=== PATIENT | female | born 1955 | race Caucasian/White ===

== ENCOUNTER 2020-02-09 15:15 | Inpatient (IN) | payer OTHER, SELFPAY ==
--- NOTE | ~2020-02-09 | CT_ITS ---
EXAMINATION: CT brain wo con DATE: 02/09/2020 20:55 INDICATION: Syncope TECHNIQUE: Computed tomography (CT) of the head was performed without intravenous contrast. The mA wa s adjusted according to patient size. Iterative reconstruction technique was employed. Exam dose: 60 5.33 mGy-cm total exam DLP. COMPARISON: None FINDINGS: No intracranial mass lesion or hemorrhage or cerebrovascular accident is evident. No midlin e shift or mass effect. There is moderately prominent central and cortical cerebral atrophy. There ar e bilateral basal ganglia calcifications. Bilateral carotid siphon internal carotid artery calcifications. There is nonspecific diminished attenuation of the cerebral white matter, likely due to chronic small vessel ischemic changes. No orbital mass lesion Right frontal sinus is not developed. Included paranasal sinuses are otherwise unremarkable. Mastoid air cells are normally developed and aerated. No fracture or bone destruction of the cranial vault. IMPRESSION: Cerebral atherosclerosis and chronic small vessel ischemic changes of the cerebral white matter Moderate atrophy Reviewed, dictated and finalized at [facility]. Reviewed, dictated and finalized at location [facility].
--- NOTE | ~2020-02-09 | US_ITS ---
EXAMINATION: US renal BI DATE: 02/10/2020 11:43 INDICATION: Acute kidney injury. TECHNIQUE: Multiple ultrasound grayscale images of the kidneys were obtained. COMPARISON: Ultrasound 12/21/2018, CT abdomen 12/29/2018 FINDINGS: The right kidney measures 9.7 x 5.4 x 5.6 cm. The left kidney measures 10.4 x 5.6 x 5.4 cm. The kidne ys demonstrate normal parenchymal echogenicity. There is no hydronephrosis. The bladder is normal. IMPRESSION: 1. Normal kidneys. No hydronephrosis. Reviewed, dictated and finalized at location [facility].
--- NOTE | ~2020-02-09 | US_ITS ---
EXAMINATION: US carotid duplex BI EXAM DATE: 02/10/2020 17:22 INDICATION: Dizziness and syncope. TECHNIQUE: Grayscale, color and pulsed Doppler images of the cervical carotid arteries were obtained . The degree of vessel stenosis is placed in one of the following categories: normal, <50% stenosis, 50-69% stenosis, >=70% stenosis but less than near-occlusion, near-occlusion, or occlusion. Note that percent stenosis relative to normal distal artery lumen diameter is indirectly measured from velocit y measurements as described by William, et al. Radiology 2003; 229:340-346. There is no prior study fo r comparison. FINDINGS: RIGHT SIDE: Right common carotid artery peak systolic velocity (PSV in cm/s): 123 Right bulb/internal carotid artery peak systolic velocity (PSV in cm/s): 82 Right internal carotid artery end diastolic velocity (EDV in cm/s): 139 Right ICA/CCA peak systolic ratio: 1.5 Right external carotid artery peak systolic velocity (PSV in cm/s): 125 Right vertebral artery antegrade flow: yes There is moderate to large amount of common carotid artery plaque, moderate amount of plaque in the c arotid bulb with maximum velocity corresponding to estimated stenosis 50-69%. LEFT SIDE: Left common carotid artery peak systolic velocity (PSV in cm/s): 136 Left bulb/internal carotid artery peak systolic velocity (PSV in cm/s): 178 Left internal carotid artery end diastolic velocity (EDV in cm/s): 28 Left ICA/CCA peak systolic ratio: 1.3 Left external carotid artery peak systolic velocity (PSV in cm/s): 155 Left vertebral artery antegrade flow: yes There is moderate amount of common carotid bulb plaque, moderate amount of carotid bulb plaque with e levated velocity corresponding to estimated stenosis 50-69%. IMPRESSION: 1. 50-69% stenosis right common carotid artery. 2. 50-69% stenosis left internal carotid artery. Reviewed, dictated and finalized at location [facility].
--- NOTE | ~2020-02-09 | XR_ITS ---
XR chest 1V portable DATE: 02/09/2020 15:54 INDICATION: Syncopal episode, fall TECHNIQUE: AP chest, portable technique, 02/09/2020 at 1545 hours COMPARISON: None FINDINGS: Diffuse osteopenia. No pulmonary infiltrate or consolidation, pleural effusion or pulmonary vascular congestion or pneumo thorax. Normal heart size. Aortic arch calcification. No hilar or mediastinal enlargement. IMPRESSION: No active cardiopulmonary disease Reviewed, dictated and finalized at location A.
--- NOTE | ~2020-02-09 | XR_ITS ---
XR hip RT 2V w AP pelvis DATE: 02/09/2020 15:54 INDICATION: Fall. Right hip pain. TECHNIQUE: AP pelvis. AP and crosstable lateral views of right hip COMPARISON: 06/27/2019 pelvis FINDINGS: Diffuse osteopenia. Status post right total hip replacement. Bilateral old pubic bone fractures. No recent pelvic fracture is evident. The pubic symphysis and sacroiliac joints are normally aligned. No right hip fracture or dislocation is evident. Fracture deformity of uncertain age L2. Degenerative change of the lumbar spine. IMPRESSION: Old bilateral pubic bone fractures L2 fracture of undetermined age Status post right total hip arthroplasty No recent pelvic or right hip fracture or dislocation Reviewed, dictated and finalized at location A.
--- NOTE | ~2020-02-09 | CT_ITS ---
EXAMINATION: CT hip RT wo con DATE: 02/12/2020 14:10 INDICATION: Right hip injury. TECHNIQUE: Computed tomography (CT) of the right hip was performed without intravenous contrast. Auto mated exposure control and iterative reconstruction technique were employed. The dose-length product was 344.09 mGy-cm. COMPARISON: Pelvis and right hip radiographs 02/09/2020 FINDINGS: There is a total right hip arthroplasty in near-anatomic alignment. No periprosthetic lucen cy to suggest loosening or infection. There is a nondisplaced comminuted intertrochanteric and subtro chanteric fracture of proximal femur. IMPRESSION: 1. Nondisplaced comminuted periprosthetic fracture of proximal right femur. Reviewed, dictated and finalized at location A.
[2020-02-09 15:15] VITALS: BP 175/89; PULSE 85; RESP 16; TEMP 36.6; O2SAT 100
--- NOTE | 2020-02-09 15:21 | ECG_ITS ---
Measurements Intervals [place] Rate: 78 P: 34 [place]: 248 QRS: 54 QRSD: 89 T: 15 QT: 376 QTc: 430 Interpretive Statements SINUS RHYTHM WITH FIRST DEGREE AV BLOCK LOW QRS VOLTAGE IN PRECORDIAL LEADS BASELINE ARTIFACT- II, III, AVF, V5 ABNORMAL ECG Electronically Signed On 02-09-2020 17:26:25 CDT by Joshua Rg D.O.
--- NOTE | 2020-02-09 15:22 | ED.SYNCOPE ---
HPI - Syncope General Chief Complaint: Syncope Stated Complaint: syncopal episode Time Seen by Provider: 02/09/20 15:15 History of Present Illness HPI narrative: Patient arrives via EMS after falling at home. She was getting off the toilet when she fainted. She did not hit her head. She has right hip pain, and is unable to bear weight. She suspects that she is reinjured her previous hip prosthesis. She did have a loss of consciousness. She denies cough cold fever chills sweats. She still drinks alcohol. She manages her ascites with medication. She does not need peritoneal taps. MD complaint: loss of consciousness -: second(s) Prodromal symptoms: lightheaded Context: standing up and other (After bowel movement) Injuries sustained associated with event: RLE Current symptoms: other (Right hip pain) Related Data Home Medications Medication Instructions Recorded Confirmed omeprazole magnesium 20 mg 20 mg PO DAILY 09/19/19 tablet,delayed release diphenhydramine HCl [Allergy 02/09/20 (diphenhydramine)] insulin glargine [Lantus Solostar unit SUBCUT 02/09/20 U-100 Insulin] Allergies Allergy/AdvReac Type Severity Reaction Status Date / Time codeine Allergy Unknown Headache Verified 09/20/19 15:24 Review of Systems Review of Systems: Narrative: CONSTITUTIONAL: Denies fever, chills, or sweats. EYES: Denies visual changes, redness, or discharge. ENT: Denies rhinorrhea, congestion, sore throat, or otalgia. CARDIOVASCULAR: Denies chest pain, palpitations, or edema. RESPIRATORY: Denies cough or dyspnea. GASTROINTESTINAL: Denies abdominal pain, nausea, vomiting, or diarrhea. GENITOURINARY: Denies dysuria or hematuria. SKIN: Denies rash or itching. MUSCULOSKELETAL: Denies back pain NEUROLOGIC: Denies headache, numbness, or weakness. PSYCHIATRIC: Denies anxiety or depression. [facility] Social History Social History (Updated 02/09/20 @ 15:26 by Annalee Vieyra MD) Smoking status: Former smoker Second hand tobacco smoke exposure: No Smoking end date: 10/16/04 Alcohol intake: current Substance use: never Exam Narrative: Exam Narrative: GENERAL: Well-appearing, well-nourished, and in no acute distress, overweight HEAD: Normocephalic, atraumatic. EYES: PERRLA and EOMI. ENT: Nares clear, no rhinorrhea or epistaxis. Mucous membranes moist. NECK: Supple. CHEST: Clear to auscultation. No respiratory distress. HEART: Regular rate and rhythm. No murmur heard. Normal peripheral pulses. ABDOMEN: Soft, nontender, nondistended, normal active bowel sounds. EXTREMITIES:tenderness and bruising on the right hip, pain with range of motion. SKIN: Warm, dry, stool on her leg. NEURO: No focal deficits. Alert and oriented x3. PSYCH: Normal mood and affect. Course Reevaluation(s) Reevaluation #1: Checked in with the patient and explained to her about her low sodium, and possible congestive heart failure. The only diuretic she is on is the Spironolactone. I explained we did would admit her for this. Date: 02/09/20 Time: 16: Consultations Consultation #1: Call for the hospitalist at [phone]. Will admit for hyponatremia, syncope, and congestive heart failure. Petra accepts for Dr. Shaw. Date: 02/09/20 Time: 16: Vital Signs Vital signs: Vital Signs Temperature 97.9 F 02/09/20 15:15 Pulse Rate 85 02/09/20 15:15 Respiratory Rate 16 02/09/20 15:15 Blood Pressure 175/89 H 02/09/20 15:15 Pulse Oximetry 100 02/09/20 15:15 Temperature 97.9 F 02/09/20 15:15 Pulse Rate 79 02/09/20 16:00 Respiratory Rate 16 02/09/20 16:00 Blood Pressure 153/72 H 02/09/20 16:00 Pulse Oximetry 100 02/09/20 16:00 MDM - Syncope Differential Diagnosis Differential diagnosis: Likely vasovagal syncope Medical Records Attestation: I reviewed the patient's medical records. Lab Data Attestation: I reviewed the patient's lab results. Result diagrams: 02/09/20 15:32 02/09/20 15:32
[2020-02-09] MEDS: MORPHINE SULFATE 2 MG/ML INJ IV PUSH (15:40)
[2020-02-09 15:43] LABS: Hemoglobin 10.8 g/dL (12.0-15.0); Mean Corpuscular Hemoglobin 32.3 pg (26-34); Mean Corpuscular Volume 89.8 fl (80-100); Mean Platelet Volume 10.9 fl (7.4-10.4); Platelet Count Result 172 k/mm3 (150-375); Red Blood Count 3.34 M/mm3 (4.2-5.4); Red Cell Distribution Width 11.8 % (11.5-14.5); White Blood Count 14.4 K/mm3 (4.5-10.0)
[2020-02-09 15:50] LABS: INR 1.2
[2020-02-09 15:51] LABS: Partial Thromboplastin Time 30.9 SECONDS (22.3-36.8)
[2020-02-09 15:52] LABS: Ethanol < 10 mg/dL (<10)
[2020-02-09 15:59] LABS: Alanine Aminotransferase 21 U/L (4-35); Albumin Level 4.7 g/dL (3.5-5.1); Alkaline Phosphatase 246 U/L (38-126); Aspartate Amino Transferase 37 U/L (14-36); Bilirubin,Total 0.9 mg/dL (0.2-1.3); Blood Urea Nitrogen 19 mg/dL (7-17); Calcium 9.5 mg/dL (8.4-10.2); Carbon Dioxide 21 mmol/L (22-30); Chloride 83 mmol/L (98-107); Estimated CRCL calculation 32 ml/min; Estimated Glomerular Filt Rate 30; Glucose 142 mg/dL (65-105); Potassium 4.8 mmol/L (3.4-5.0); Sodium 119 mmol/L (137-145)
[2020-02-09 16:00] VITALS: BP 153/72; PULSE 79; RESP 16; O2SAT 100
[2020-02-09 16:01] LABS: Band Neutrophils Percent 7 % (0-6); Eosinophils Absolute Manual 0.43 K/mm3 (0.02-0.5); Eosinophils Percent Manual 3 % (0-4); Lymphocytes Absolute Manual 0.43 K/mm3 (1.1-4.5); Monocytes Absolute Manual 0.28 K/mm3 (0.1-0.90); Monocytes Percent Manual 2 % (3-9); Neutrophils Absolute Manual 13.24 K/mm3 (1.7-7.2); Neutrophils Percent Manual 85 % (46-73); Total Cells Counted 100
[2020-02-09 16:02] LABS: Platelet Estimate Adequate (Adequate)
[2020-02-09 16:10] LABS: NT Pro B Type Natriuretic Pept 1110 PG/ML (5-100); Troponin I < 0.012 ng/mL (0.000-0.034)
[2020-02-09 17:50] VITALS: BP 159/76; PULSE 92; RESP 16; O2SAT 99
--- NOTE | 2020-02-09 18:17 | ADMGEN ---
This patient, Lou Islas, was admitted to Medical Room 252-01. Patient/family oriented to hospital policies and general routines including ID bracelet, bed and alarms, visiting hours, pain management, procedures, bathroom and other care routines, personal items, smoking policy, room service/diet, and visiting hours. Valuables list has been completed. Information on how to activate the Rapid Response Team has been discussed. Patient/Family are encouraged to report perceived risks to care and to ask questions if they do not understand what they are told or what they should do.
[2020-02-09 18:20] VITALS: PULSE 90
--- NOTE | 2020-02-09 18:43 | PC.NURSE ---
Patient has $149 gerardo that I locked in patients locker, per her request.
[2020-02-09 19:08] VITALS: BP 138/94; PULSE 90; RESP 17; TEMP 36.9; O2SAT 99; BMI 27.9
[2020-02-09 20:00] VITALS: BP 100/46; PULSE 81; PULSE 88; RESP 18; TEMP 36.2; O2SAT 100
[2020-02-09] MEDS: ONDANSETRON INJ 4 MG/2 ML VIAL IV PUSH (20:05)
--- NOTE | 2020-02-09 20:27 | ECG_ITS ---
Measurements Intervals [place] Rate: 96 P: 253 [place]: 155 QRS: 56 QRSD: 85 T: 11 QT: 368 QTc: 465 Interpretive Statements SINUS RHYTHM BASELINE ARTIFACT- I, II, III, AVR, AVL, AVF, V1-V6 BORDERLINE ECG Electronically Signed On 02-10-2020 8:13:35 CDT by Joshua Rg D.O.
[2020-02-09 21:08] LABS: Glucose Point of Care 126 (65-105)
--- NOTE | 2020-02-09 21:26 | PM.IMHP ---
H&P: HPI History of Present Illness Chief complaint: syncope Narrative: This is a 64 year old female with known history of alcoholic liver disease who continues to drink alcohol and presented to the hospital today after suffering a possible syncopal event at home. The patient is known to live alone and she tells me that she has not been feeling well for several days. She has been experiencing nausea, vomiting, diarrhea, and dizziness for the past 4 days. She admits that she hasn't been eating much but does continue to drink alcohol. Today she was sitting on the toilet and when she got up she became dizzy and believes she might have passed out for a moment. She fell and landed on her right hip which is a prosthetic. She denies any seizure activity that she is aware of and denies any tongue biting or loss of urine. She also denies any focal neurological deficit, slurred speech or facial droop. The patient denies any recent fevers, chills, cough, chest pain, abdominal pain, dysuria, hematuria, or headache. She does report ongoing acsites. The patient was evaluated in the ER today and found to have a serum sodium level of 119 mEq/dl. Her Cr was 1.7 up from 1.3 a few months ago. She is known to chronically take Spironolactone. Review of Systems Review of Systems: All systems reviewed & are unremarkable except as noted in HPI and below PMFSH Past Medical History Medical History (Updated 02/09/20 @ 22:31 by Ghanshyam Sykes MD) Alcoholic liver disease Diabetes mellitus GERD (gastroesophageal reflux disease) HTN (hypertension) with goal to be determined Surgical History Surgical History History of right hip replacement Family History Family History Father Heart attack Mother Hypertension Mother Diabetes mellitus Mother COPD (chronic obstructive pulmonary disease) Sibling Diabetes mellitus Son No problems noted. Sibling Amputation above knee Social History Social History Smoking status: Former smoker Tobacco type: cigarettes Second hand tobacco smoke exposure: No Smoking end date: 10/16/04 Alcohol intake: current Drinks per week: 7 Substance use: never Gender identity (if verbalized by the patient): Female Spiritual care concerns: No Agree to blood products: Yes Meds Home Medications and Allergies Home Medications Medication Instructions Recorded Confirmed Type folic acid 1 mg tablet 1 mg PO DAILY #90 tablet 08/23/19 02/09/20 Rx spironolactone 25 mg tablet 25 mg PO DAILY #90 tablet 09/17/19 02/09/20 Rx metoprolol succinate 50 mg 50 mg PO DAILY #90 tablet 10/11/19 02/09/20 Rx tablet,extended release 24 hr blood sugar diagnostic #400 each 12/31/19 02/09/20 Rx losartan 50 mg tablet 50 mg PO DAILY #90 tablet 12/31/19 02/09/20 Rx pen needle, diabetic 32 gauge x #400 each 12/31/19 02/09/20 Rx 1/4 diphenhydramine HCl [Allergy 25 mg PO BID 02/09/20 02/09/20 History (diphenhydramine)] ibuprofen 400 mg PO Q12H 02/09/20 02/09/20 History insulin glargine [Lantus Solostar 10 unit SUBCUT HS 02/09/20 02/09/20 History U-100 Insulin] insulin lispro [Humalog KwikPen 5 unit SUBCUT AC 02/09/20 02/09/20 History Insulin] omeprazole magnesium [Prilosec OTC] 20 mg PO DAILY 02/09/20 02/09/20 History Allergies Allergy/AdvReac Type Severity Reaction Status Date / Time codeine Allergy Unknown Headache Verified 09/20/19 15:24 Vital Signs Vital Signs - 24 hr 02/09/20 15:15 02/09/20 16:00 02/09/20 17:50 Temperature 36.6 C Pulse Rate 85 79 92 Respiratory Rate 16 16 16 Blood Pressure 175/89 H 153/72 H 159/76 H Pulse Oximetry 100 100 99 02/09/20 18:20 02/09/20 19:08 02/09/20 20:00 Temperature 36.9 C 36.2 C L Pulse Rate 90 90 81 Respiratory Rate 17 18 Blood Pressure 138/94 H 100/46 L Pulse Oximetry 99 10
[2020-02-09 21:57] LABS: Blood Urea Nitrogen 20 mg/dL (7-17); Calcium 9.2 mg/dL (8.4-10.2); Carbon Dioxide 21 mmol/L (22-30); Chloride 83 mmol/L (98-107); Estimated CRCL calculation 32 ml/min; Estimated Glomerular Filt Rate 30; Glucose 147 mg/dL (65-105); Magnesium 1.4 mg/dL (1.6-2.3); Phosphorus 3.9 mg/dL (2.5-4.5); Sodium 119 mmol/L (137-145)
[2020-02-09] MEDS: SODIUM CHLORIDE 0.9% IV 250 ML 75 ML IV CONT (22:17)
[2020-02-09 23:03] LABS: Folic Acid > 20.0 ng/mL (2.76->20)
[2020-02-10] VITALS (9 sets, daily range): BP systolic 94–120; BP diastolic 41–55; PULSE 81–95; RESP 14–18; TEMP 36.3–37.2; O2SAT 100
--- NOTE | 2020-02-10 | ECHO_ITS ---
Patient Info Name: Lou Islas Age: 64 years : 1955 Gender: Female Ht: 66 in Wt: 173 lbs BSA: 1.93 m2 HR: 87 bpm BP: 120 / 53 mmHg Heart Rhythm: Sinus Rhythm Technical Quality: Good Exam Date: 02/10/2020 11:03 AM Exam Location: [facility] Patient Status: Inpatient Admit Date: 02/10/2020 Staff Ordering Physician: Jeannette Landis PA-C Parer: Sharad Montoya RDCS Attending Provider: Dick Shaw MD Exam Type: CA echo doppler color flow Study Info Indications R55 - Syncope and collapse Complete two-dimensional, color flow and Doppler transthoracic echocardiogram is performed. Strain analysis performed. History/Risk Factors Syncope; EtOH abuse, DM, HTN. Summary 1. Left ventricular chamber dimension is normal. 2. Left ventricular systolic function is normal, estimated at 65-70%. 3. There is mildly increased left ventricular wall thickness. 4. The left ventricular diastolic function is grade I diastolic dysfunction. 5. E/e' 21 is elevated. 6. Global longitudinal strain is mildly abnormal at -16.1%. 7. Left atrial chamber dimension is mildly enlarged. 8. There is mild aortic valve regurgitation. 9. The mitral valve has moderately calcified annulus. Left Ventricle E/e' 21 is elevated. Global longitudinal strain is mildly abnormal at -16.1%. Left ventricular chamber dimension is normal. Left ventricular systolic function is normal, estimated at 65-70%. There is mildly increased left ventricular wall thickness. The left ventricular diastolic function is grade I diastolic dysfunction. Right Ventricle Right ventricular chamber dimension is normal. Right ventricular systolic function is normal. Left Atria Left atrial chamber dimension is mildly enlarged. Right Atria Right atrial chamber dimension is normal. Aortic Valve The aortic valve is trileaflet. There is no aortic valve stenosis. There is mild aortic valve regurgitation. Pulmonic Valve There is no pulmonic regurgitation. Mitral Valve The mitral valve has moderately calcified annulus. There is no mitral valve stenosis. There is no mitral valve regurgitation. Tricuspid Valve There is no tricuspid valve regurgitation. Pericardium/Pleural There is no pericardial effusion. Inferior Vena Cava Normal inferior vena cava with >50% collapse upon inspiration consistent with normal right atrial pressure, 5 mmHg. Aorta The aortic root size at the sinus of Valsalva is normal. Left Ventricular Outflow Tract Name Value Normal LVOT 2D LVOT Diameter 1.9 cm LVOT Doppler LVOT Peak Gradient 6 mmHg LVOT Mean Gradient 3 mmHg LVOT VTI 21 cm LVOT VTI/AV VTI Ratio 0.9 LVOT Stroke Volume 59 ml LVOT CO 5.0 l/min LVOT CI 2.6 l/min/m2 Mitral Valve Name Value Normal ---
[2020-02-10 02:08] LABS: Blood Urea Nitrogen 21 mg/dL (7-17); Calcium 9.1 mg/dL (8.4-10.2); Carbon Dioxide 21 mmol/L (22-30); Chloride 86 mmol/L (98-107); Estimated CRCL calculation 30 ml/min; Estimated Glomerular Filt Rate 28; Glucose 154 mg/dL (65-105); Potassium 5.8 mmol/L (3.4-5.0); Sodium 117 mmol/L (137-145)
[2020-02-10 05:31] LABS: Creatinine Urine 38.2 mg/dL; Total Protein Urine Random 16 mg/dL
[2020-02-10 05:38] LABS: Basophils Percent Auto 0.4 % (0.2-1.2); Eosinophils Absolute Auto 0.1 K/mm3 (0-0.3); Eosinophils Percent Auto 1.4 % (0-4.4); Hematocrit 24.4 % (37.0-47.0); Hemoglobin 8.7 g/dL (12.0-15.0); Immature Granulocyte Absolute 0.05 K/mm3 (0.00-0.031); Immature Granulocyte Percent A 0.7 % (0-0.5); Immature Platelet Fraction Pct 9.4 % (0.9-11.2); Lymphocytes Absolute Auto 0.82 K/mm3 (0.9-3.2); Lymphocytes Percent Auto 11.6 % (18.3-44.2); Mean Corpuscular HGB Conc 35.7 g/dl (32-36); Mean Corpuscular Hemoglobin 32.3 pg (26-34); Mean Corpuscular Volume 90.7 fl (80-100); Mean Platelet Volume 11.1 fl (7.4-10.4); Monocytes Absolute Auto 0.5 K/mm3 (0.1-0.6); Monocytes Percent Auto 6.8 % (2.6-8.5); Neutrophils Absolute Auto 5.6 K/mm3 (1.3-6.7); Neutrophils Percent Auto 79.1 % (45.5-73.1); Platelet Count Result 138 k/mm3 (150-375); Red Blood Count 2.69 M/mm3 (4.2-5.4); Red Cell Distribution Width 11.9 % (11.5-14.5); White Blood Count 7.1 K/mm3 (4.5-10.0)
[2020-02-10 06:13] LABS: Sodium Urine Random 24 meq/L
[2020-02-10 06:13] LABS: Blood Urea Nitrogen 21 mg/dL (7-17); Carbon Dioxide 23 mmol/L (22-30); Chloride 86 mmol/L (98-107); Estimated CRCL calculation 28 ml/min; Estimated Glomerular Filt Rate 27; Glucose 142 mg/dL (65-105); Magnesium 1.4 mg/dL (1.6-2.3); Sodium 119 mmol/L (137-145)
[2020-02-10 06:49] LABS: Glucose Point of Care 138 (65-105)
[2020-02-10] MEDS: MAGNESIUM SULF 2 GM/WATER 50ML 2 GM/50 ML BAG IVPB (09:15)
[2020-02-10 09:51] LABS: Blood Urea Nitrogen 22 mg/dL (7-17); Carbon Dioxide 22 mmol/L (22-30); Chloride 88 mmol/L (98-107); Estimated CRCL calculation 28 ml/min; Estimated Glomerular Filt Rate 27; Glucose 125 mg/dL (65-105); Potassium 4.8 mmol/L (3.4-5.0); Sodium 119 mmol/L (137-145)
[2020-02-10 11:44] LABS: Glucose Point of Care 134 (65-105)
--- NOTE | 2020-02-10 12:58 | PM.IMPN ---
Progress Note: A&P Assessment and Plan (1) Syncope and collapse: Code(s): R55 - Syncope and collapse Status: Acute Assessment and Plan: May be secondary to dehydration and orthostasis with recent diarrhea. CT brain shows chronic small vessel changes, moderate atrophy with no acute intracranial findings. Carotid Dopplers pending. (2) Hyponatremia: Code(s): E87.1 - Hypo-osmolality and hyponatremia Status: Acute Assessment and Plan: May be secondary to hypervolemia given her diagnosis of alcoholic cirrhosis with chronic ascites. She is also on spironolactone which could be contributing. Fluid restriction, hold spironolactone. Nephrology consulted - appreciate further recommendations. Protein electrophoresis pending. Monitor BMP, Na still at 119 this afternoon and RN has contacted Dr. Ann. (3) Acute renal failure: Qualifiers: Acute renal failure type: unspecified Qualified Code(s): N17.9 - Acute kidney failure, unspecified Code(s): N17.9 - Acute kidney failure, unspecified Status: Acute Assessment and Plan: Recent GI illness may contribute. Monitor urine output. Appreciate nephrology input. (4) Nausea & vomiting: Qualifiers: Vomiting type: unspecified Vomiting Intractability: non-intractable Qualified Code(s): R11.2 - Nausea with vomiting, unspecified Code(s): R11.2 - Nausea with vomiting, unspecified Status: Acute Assessment and Plan: None so far today. Continue antiemetics and advance diet as tolerate. (5) Diarrhea: Qualifiers: Diarrhea type: unspecified type Qualified Code(s): R19.7 - Diarrhea, unspecified Code(s): R19.7 - Diarrhea, unspecified Status: Acute Assessment and Plan: None today, could obtain stool culture if she continues to have diarrhea. No recent antibiotic use, no fever. (6) Leukocytosis: Qualifiers: Leukocytosis type: unspecified Qualified Code(s): D72.829 - Elevated white blood cell count, unspecified Code(s): D72.829 - Elevated white blood cell count, unspecified Status: Acute Assessment and Plan: Resolved today. May have been related to GI illness. Monitor CBC. (7) Ascites: Qualifiers: Ascites type: due to alcoholic cirrhosis Qualified Code(s): K70.31 - Alcoholic cirrhosis of liver with ascites Code(s): R18.8 - Other ascites Status: Chronic Assessment and Plan: Patient notes she has not required paracentesis in about 10 years. Abdomen is mildly distended but soft. (8) Chronic anemia: Code(s): D64.9 - Anemia, unspecified Status: Chronic Assessment and Plan: Chronic based on review of previous labs. May be secondary to alcoholism. No evidence of acute bleeding. Monitor CBC. Check B12 and folate. (9) GERD (gastroesophageal reflux disease): Qualifiers: Esophagitis presence: esophagitis presence not specified Qualified Code(s): K21.9 - Gastro-esophageal reflux disease without esophagitis Code(s): K21.9 - Gastro-esophageal reflux disease without esophagitis Status: Chronic Assessment and Plan: Continue PPI therapy. (10) HTN (hypertension) with goal to be determined: Code(s): I10 - Essential (primary) hypertension Status: Chronic Assessment and Plan: BP low, losartan and spironolactone are held. Continue to monitor BP and adjust treatment as needed. 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
[2020-02-10] MEDS: PANTOPRAZOLE 40 MG TABLET PO (13:59)
[2020-02-10 14:11] LABS: Blood Urea Nitrogen 23 mg/dL (7-17); Calcium 8.8 mg/dL (8.4-10.2); Carbon Dioxide 19 mmol/L (22-30); Chloride 88 mmol/L (98-107); Estimated CRCL calculation 28 ml/min; Estimated Glomerular Filt Rate 27; Glucose 126 mg/dL (65-105); Potassium 4.8 mmol/L (3.4-5.0); Sodium 119 mmol/L (137-145)
--- NOTE | 2020-02-10 16:36 | PM.CNNEP ---
Assessment and Plan Assessment and plan (1) Acute renal failure: Qualifiers: Acute renal failure type: unspecified Qualified Code(s): N17.9 - Acute kidney failure, unspecified Code(s): N17.9 - Acute kidney failure, unspecified Status: Acute (2) Hyponatremia: Code(s): E87.1 - Hypo-osmolality and hyponatremia Status: Acute (3) Syncope and collapse: Code(s): R55 - Syncope and collapse Status: Acute (4) Nausea, vomiting and diarrhea: Code(s): R11.2 - Nausea with vomiting, unspecified; R19.7 - Diarrhea, unspecified Status: Acute (5) Alcoholic cirrhosis of liver with ascites: Code(s): K70.31 - Alcoholic cirrhosis of liver with ascites Status: Acute Assessment and Plan: . Additional Plan Benita has acute kidney injury on top of her baseline renal insufficiency in association with worsening hyponatremia. For history would suggest volume depletion given the nausea vomiting as well as dizziness and her urine electrolytes would support this as well. Unfortunately, her hyponatremia is somewhat more difficult to interpret. History, as already mentioned, would argue in favor of volume depletion but given her underlying liver disease/liver cirrhosis with ascites there is probably a component of hypervolemic hyponatremia playing a role as well. Unfortunately, the treatment strategy for both of these conditions is somewhat counter in to have that that dot IV fluids would be recommended if she is volume depleted but if she has a degree of volume overload than fluid restriction would be the mainstay of therapy. I suppose that could give the patient salt tablets and diuretics versus 3% saline but this also carries a risk of worsening 1 of her underlying conditions as well. I still believe that her presenting symptoms and laboratory abnormalities are more consistent with volume depletion and hence I will probably give her another trial of IV fluids and see what her sodium level does. If her sodium level improves in conjunction with her creatinine, that would argue that her low sodium level and renal function are more life assurance representative of volume depletion in general. My concern of course is that aggressive IV fluid resuscitation may just worsen her ascites and thereby caused her sodium level to fluctuate more making it somewhat difficult to come open ideal strategy to correct both issues (her hyponatremia and renal function). Greater than 20 minutes was spent in detail discussion with the patient regarding these to confounding issues and the multiple/varied treatment strategies that will be utilized to try in correct these issues. She is well aware of the 2 variables) renal function and hypernatremia) that may fluctuate in different directions depending on what ever strategy is employed. I will continue follow the patient with you while she remains hospitalized to make further recommendations during hospital course Thank you for allowing me participate in care this patient. History of Present Illness Reason for Consult Consult date: 02/10/20 Reason for consult: acute renal failure and hyponatremia Chief Complaint Chief complaint: syncope History of Present Illness Narrative: The patient is a 64 year old female with a past medical history as outlined below who presented to the [facility] ER after suffering a possible syncopal episode at home. The patient is known to live alone and has not been feeling well for several days. She has been experiencing nausea, vomiting, diarrhea, and dizziness for the past 4 days if not longer. She admits that she hasn't been eating much but does continue to drink alcohol. On the day of admission, she was apparently sitting on the toilet and when she got up she became dizzy and believes she might have passed out -- this resulted in a fall. She landed on her right hip which is a prosthetic and was quite concerned that she may capone
[2020-02-10 16:44] LABS: Glucose Point of Care 155 (65-105)
[2020-02-10] MEDS: IBUPROFEN 200 MG TABLET 400 MG PO (18:00)
[2020-02-10] MEDS: SODIUM CHLORIDE 0.9% IV 250 ML 75 ML IV CONT (18:01)
[2020-02-10] MEDS: ONDANSETRON INJ 4 MG/2 ML VIAL IV PUSH (18:06)
[2020-02-10 19:27] LABS: Blood Urea Nitrogen 22 mg/dL (7-17); Calcium 8.6 mg/dL (8.4-10.2); Carbon Dioxide 21 mmol/L (22-30); Chloride 87 mmol/L (98-107); Estimated CRCL calculation 25 ml/min; Estimated Glomerular Filt Rate 22; Glucose 224 mg/dL (65-105); Potassium 4.3 mmol/L (3.4-5.0); Sodium 119 mmol/L (137-145)
[2020-02-10 22:30] LABS: Blood Urea Nitrogen 23 mg/dL (7-17); Calcium 8.4 mg/dL (8.4-10.2); Carbon Dioxide 21 mmol/L (22-30); Chloride 89 mmol/L (98-107); Estimated CRCL calculation 26 ml/min; Estimated Glomerular Filt Rate 24; Glucose 175 mg/dL (65-105); Potassium 4.5 mmol/L (3.4-5.0); Sodium 120 mmol/L (137-145)
[2020-02-10 23:16] LABS: Sodium 118 mmol/L (137-145)
[2020-02-11] VITALS (18 sets, daily range): BP systolic 54–149; BP diastolic 36–112; PULSE 83–104; RESP 14–18; TEMP 36.6–37.2; O2SAT 99–100; BMI 10.0
[2020-02-11] MEDS: IBUPROFEN 200 MG TABLET 400 MG PO (01:04)
[2020-02-11 03:06] LABS: Glucose Point of Care 168 (65-105)
[2020-02-11 05:15] LABS: Basophils Percent Auto 0.5 % (0.2-1.2); Eosinophils Absolute Auto 0.4 K/mm3 (0-0.3); Eosinophils Percent Auto 6.4 % (0-4.4); Hematocrit 24.3 % (37.0-47.0); Hemoglobin 8.5 g/dL (12.0-15.0); Immature Granulocyte Absolute 0.06 K/mm3 (0.00-0.031); Immature Platelet Fraction Pct 7.7 % (0.9-11.2); Lymphocytes Absolute Auto 1.25 K/mm3 (0.9-3.2); Lymphocytes Percent Auto 20.4 % (18.3-44.2); Mean Corpuscular Volume 91.4 fl (80-100); Mean Platelet Volume 10.7 fl (7.4-10.4); Monocytes Absolute Auto 0.6 K/mm3 (0.1-0.6); Monocytes Percent Auto 9.8 % (2.6-8.5); Neutrophils Absolute Auto 3.8 K/mm3 (1.3-6.7); Neutrophils Percent Auto 61.9 % (45.5-73.1); Platelet Count Result 128 k/mm3 (150-375); Red Blood Count 2.66 M/mm3 (4.2-5.4); Red Cell Distribution Width 11.7 % (11.5-14.5); White Blood Count 6.1 K/mm3 (4.5-10.0)
[2020-02-11 05:28] LABS: Alanine Aminotransferase 14 U/L (4-35); Albumin Level 3.6 g/dL (3.5-5.1); Alkaline Phosphatase 167 U/L (38-126); Aspartate Amino Transferase 23 U/L (14-36); Bilirubin,Total 0.8 mg/dL (0.2-1.3); Blood Urea Nitrogen 22 mg/dL (7-17); Calcium 8.8 mg/dL (8.4-10.2); Carbon Dioxide 22 mmol/L (22-30); Chloride 90 mmol/L (98-107); Estimated CRCL calculation 26 ml/min; Estimated Glomerular Filt Rate 24; Glucose 147 mg/dL (65-105); Phosphorus 3.7 mg/dL (2.5-4.5); Potassium 4.4 mmol/L (3.4-5.0); Sodium 122 mmol/L (137-145)
[2020-02-11] MEDS: METOPROLOL SUCCINATE EXT REL 50 MG TABCR PO (08:06)
[2020-02-11] MEDS: FOLIC ACID 1 MG TABLET PO (08:07)
[2020-02-11] MEDS: PANTOPRAZOLE 40 MG TABLET PO (08:07)
[2020-02-11 09:02] LABS: Glucose Point of Care 145 (65-105)
--- NOTE | 2020-02-11 11:18 | P.PNNP_ITS ---
Progress Note: A&P Assessment and Plan (1) Acute renal failure: Qualifiers: Acute renal failure type: unspecified Qualified Code(s): N17.9 - Acute kidney failure, unspecified Code(s): N17.9 - Acute kidney failure, unspecified Status: Acute Assessment and Plan: * history would argue in favor of volume depletion/dehydration (nausea + vomiting + diarrhea) * other risk factors include NSAID, ARB, spironolactone use as well as underlying liver disease * creatinine has worsened (in spite of IVF trials) * renal ultrasound noted * urine lytes c/w pre-renal azotemia (which could be misleading as liver ph ysiology could demonstrate this as well) * given positive orthostatics, ashlie give another run of normal saline (75cc/hr x 3 hours) * follow repeat labs and UOP (2) Hyponatremia: Code(s): E87.1 - Hypo-osmolality and hyponatremia Status: Acute Assessment and Plan: * mild improvement in the last 24 hours * see what repeat sodium level is -- rechallenge with NS IVFs (see #1) * follow trend of repeat sodium levels (3) Syncope and collapse: Code(s): R55 - Syncope and collapse Status: Acute Assessment and Plan: * related to #1 or #2 or something else? * agree with checking cortisol * follow symptoms (4) Nausea, vomiting and diarrhea: Code(s): R11.2 - Nausea with vomiting, unspecified; R19.7 - Diarrhea, unspecified Status: Acute Assessment and Plan: * somewhat better * continue supportive therapy (5) Alcoholic cirrhosis of liver with ascites: Code(s): K70.31 - Alcoholic cirrhosis of liver with ascites Status: Acute Assessment and Plan: * chronic issue * spironolactone on hold Will continue to follow. Subjective Date/time seen: 02/11/20 11:18 Appears to be doing reasonably well at the time of my visit; nursing informed me of her significant orthostasis as evidenced by her blood pressure change with positioning; no apparent distress voiced at this time. Exam Narrative: Exam Narrative: General: WD/WN female in NAD Heart: normal S1 and S2; no rub Lungs: clear to auscultation Abdomen: soft, nontender, + ascites positive bowel sounds Extremities: no cyanosis or clubbing; trace edema Skin: warm and dry Objective Data Vital Signs Vital Signs: Vital Signs Temp Pulse Resp BP Pulse Ox 02/11/20 10:00 36.9 C 92 16 101/41 L 99 02/11/20 08:06 95 02/11/20 04:00 36.6 C 84 18 119/62 100 02/11/20 00:00 37.1 C 91 16 113/58 L 100 02/10/20 20:00 37.2 C 95 16 108/41 L 100 02/10/20 18:00 36.7 C 85 18 94/46 L 100 02/10/20 16:00 88 02/10/20 14:00 36.5 C 88 18 108/49 L 100 02/10/20 12:00 90 Intake/Output Intake/Output: Intake & Output 02/08/20 02/09/20 02/10/20 02/11/20 23:59 23:59 23:59 23:59 Intake Total 100 770 240 Output Total 1125 Balance 100 -355 240 Meds/Results Medications: Active Medications Generic Name Dose Route Start Last Admin Trade Name Freq PRN Reason Stop Dose Admin Dextrose 12.5 gm 02/09/20 20:29 Dextrose 50% Syringe IV PUSH PRN PRN Hypoglycemia Protocol Folic Acid 1 mg 02/11/20 09:00 02/11/20 08:07
--- NOTE | 2020-02-11 11:18 | PM.PNNEP ---
Progress Note: A&P Assessment and Plan (1) Acute renal failure: Qualifiers: Acute renal failure type: unspecified Qualified Code(s): N17.9 - Acute kidney failure, unspecified Code(s): N17.9 - Acute kidney failure, unspecified Status: Acute Assessment and Plan: history would argue in favor of volume depletion/dehydration (nausea + vomiting + diarrhea) other risk factors include NSAID, ARB, spironolactone use as well as underlying liver disease creatinine has worsened (in spite of IVF trials) renal ultrasound noted urine lytes c/w pre-renal azotemia (which could be misleading as liver physiology could demonstrate this as well) given positive orthostatics, ashlie give another run of normal saline (75cc/hr x 3 hours) follow repeat labs and UOP (2) Hyponatremia: Code(s): E87.1 - Hypo-osmolality and hyponatremia Status: Acute Assessment and Plan: mild improvement in the last 24 hours see what repeat sodium level is -- rechallenge with NS IVFs (see #1) follow trend of repeat sodium levels (3) Syncope and collapse: Code(s): R55 - Syncope and collapse Status: Acute Assessment and Plan: related to #1 or #2 or something else? agree with checking cortisol follow symptoms (4) Nausea, vomiting and diarrhea: Code(s): R11.2 - Nausea with vomiting, unspecified; R19.7 - Diarrhea, unspecified Status: Acute Assessment and Plan: somewhat better continue supportive therapy (5) Alcoholic cirrhosis of liver with ascites: Code(s): K70.31 - Alcoholic cirrhosis of liver with ascites Status: Acute Assessment and Plan: chronic issue spironolactone on hold Will continue to follow. Subjective Date/time seen: 02/11/20 11:18 Appears to be doing reasonably well at the time of my visit; nursing informed me of her significant orthostasis as evidenced by her blood pressure change with positioning; no apparent distress voiced at this time. Exam Narrative: Exam Narrative: General: WD/WN female in NAD Heart: normal S1 and S2; no rub Lungs: clear to auscultation Abdomen: soft, nontender, + ascites positive bowel sounds Extremities: no cyanosis or clubbing; trace edema Skin: warm and dry Objective Data Vital Signs Vital Signs: Vital Signs Temp Pulse Resp BP Pulse Ox 02/11/20 10:00 36.9 C 92 16 101/41 L 99 02/11/20 08:06 95 02/11/20 04:00 36.6 C 84 18 119/62 100 02/11/20 00:00 37.1 C 91 16 113/58 L 100 02/10/20 20:00 37.2 C 95 16 108/41 L 100 02/10/20 18:00 36.7 C 85 18 94/46 L 100 02/10/20 16:00 88 02/10/20 14:00 36.5 C 88 18 108/49 L 100 02/10/20 12:00 90 Intake/Output Intake/Output: Intake & Output 02/08/20 02/09/20 02/10/20 02/11/20 23:59 23:59 23:59 23:59 Intake Total 100 770 240 Output Total 1125 Balance 100 -355 240 Meds/Results Medications: Active Medications Generic Name Dose Route Start Last Admin Trade Name Freq PRN Reason Stop Dose Admin Dextrose 12.5 gm 02/09/20 20:29 Dextrose 50% Syringe IV PUSH PRN PRN Hypoglycemia Protocol Folic Acid 1 mg 02/11/20 09:00 02/11/20 08:07 Folic Acid PO 1 mg DAILY NEIL Administration Glucagon 1 mg 02/09/20 20:29 Glucagon For Inj IM PRN PRN Hypoglycemia Protocol Dextrose 1,000 mls @ 100 mls/hr 02/09/20 20:29 Dextrose 5% 1,000 Ml IVPB PRN PRN Hypoglycemia Protocol Ibuprofen 400 mg 02/10/20 12:57 02/11/20 01:04 Motrin PO 400 mg Q6H PRN Administration Pain or Fever Insulin Aspart 2 - 5 units 02/10/20 08:00 02/11/20 07:49 Novolog SUB-Q Not Given TIDWM NEIL Protocol Metoprolol Succinate 50 mg 02/11/20 09:00 02/11/20 08:06 Toprol Xl PO 50 mg DAILY NEIL Administration Ondansetron HCl 4 mg 02/09/20 19:59 02/10/20 18:06 Zofran Inj IV PUSH 4 mg Q6H PRN Administratio
[2020-02-11] MEDS: ONDANSETRON INJ 4 MG/2 ML VIAL IV PUSH (11:29)
--- NOTE | 2020-02-11 11:39 | PM.IMPN ---
Progress Note: A&P Assessment and Plan (1) Syncope and collapse: Code(s): R55 - Syncope and collapse Status: Acute Assessment and Plan: -----looks like this has been a chronic issue that is worsening. It is likely due to her electrolyte abnormalities and I will go ahead and check a random cortisol since her sodium is so low--addisons? May consider further testing with that. I also check orthostatic blood pressures. The patient does drink alcohol daily and dehydration cannot be ruled out as well. She was told that she needs to cut out her alcohol and she seems to understand this. It does not appear cardiac since she has presyncopal episodes and her echo is clear. Telemetry has not had any arrhythmias as well. It is unclear if it is BPV as she is unsure if moving her head worsens the dizziness but I will try meclizine. She also understands that she needs to get her glucose check every time this happens to her to make sure this is not low glucose as well. A1c back in August was 4.9 and she is on Lantus at home with 5 units of insulin with meals. I am worried her symptoms are from hypoglycemia. Her insulin regimen will likely be changed at discharge. I have also decreased her metoprolol as this can cause dizziness as well. CT brain shows chronic small vessel changes, moderate atrophy with no acute intracranial findings. Carotid Dopplers pending. (2) Hyponatremia: Code(s): E87.1 - Hypo-osmolality and hyponatremia Status: Acute Assessment and Plan: -----122 today with fluid restriction. As stated above, will check cortisol levels. May be secondary to hypervolemia given her diagnosis of alcoholic cirrhosis with chronic ascites. She is also on spironolactone which could be contributing. Continue Fluid restriction, hold spironolactone. Nephrology consulted - appreciate further recommendations. Protein electrophoresis pending. (3) Acute renal failure: Qualifiers: Acute renal failure type: unspecified Qualified Code(s): N17.9 - Acute kidney failure, unspecified Code(s): N17.9 - Acute kidney failure, unspecified Status: Acute Assessment and Plan: -----Recent GI illness may contribute. Monitor urine output. Will check a UA. (4) Nausea & vomiting: Qualifiers: Vomiting type: unspecified Vomiting Intractability: non-intractable Qualified Code(s): R11.2 - Nausea with vomiting, unspecified Code(s): R11.2 - Nausea with vomiting, unspecified Status: Acute Assessment and Plan: -----resolved. (5) Diarrhea: Qualifiers: Diarrhea type: unspecified type Qualified Code(s): R19.7 - Diarrhea, unspecified Code(s): R19.7 - Diarrhea, unspecified Status: Acute Assessment and Plan: -----resolved (6) Leukocytosis: Qualifiers: Leukocytosis type: unspecified Qualified Code(s): D72.829 - Elevated white blood cell count, unspecified Code(s): D72.829 - Elevated white blood cell count, unspecified Status: Acute Assessment and Plan: -----likely reactive. No infection suspected. Within normal limits today. (7) Ascites: Qualifiers: Ascites type: due to alcoholic cirrhosis Qualified Code(s): K70.31 - Alcoholic cirrhosis of liver with ascites Code(s): R18.8 - Other ascites Status: Chronic Assessment and Plan: ------Patient notes she has not required paracentesis in about 10 years. Abdomen is mildly distended but soft. She is not having any troubles with this. (8) Chronic anemia: Code(s): D64.9 - Anemia, unspecified Status: Chronic Assessment and Plan: -----Chronic based on review of previous labs. May be secondary to alcoholism. No evidence of acute bleeding. (9) GERD (gastroesophageal reflux disease): Qualifiers: Esophagitis presence: esophagitis presence not spe
[2020-02-11 12:00] LABS: Glucose Point of Care 170 (65-105)
[2020-02-11] MEDS: SODIUM CHLORIDE 0.9% IV 1,000 ML 75 ML IV CONT (12:39)
[2020-02-11] MEDS: ATORVASTATIN 10 MG TABLET PO (12:39)
[2020-02-11 16:46] LABS: Glucose Point of Care 173 (65-105)
[2020-02-11 18:48] LABS: Add Urine Microscopic? YES; Appearance Urine Clear (Clear); Bacteria Urine Trace /hpf; Bilirubin Urine Negative (Negative); Blood Urine Negative (Negative); Color Urine Yellow (Yellow); Glucose Urine UA 1+ mg/dL (Negative); Ketones Urine Negative (Negative); Leukocyte Esterase Ur Negative LEU/UL (Negative); Nitrate Urine Negative (Negative); Protein Urine Negative (Negative); RBC Urine 0-2 /hpf (0-2); Specific Grav Ur 1.011 (1.001-1.035); Squamous Epithelial Cell Urine Many /hpf (Few); WBC Urine 0-3 /hpf
[2020-02-11 22:48] LABS: Glucose Point of Care 189 (65-105)
[2020-02-12] VITALS (13 sets, daily range): BP systolic 88–168; BP diastolic 42–77; PULSE 84–101; RESP 16–21; TEMP 36.1–36.5; O2SAT 100
[2020-02-12 05:19] LABS: Blood Urea Nitrogen 22 mg/dL (7-17); Calcium 9.2 mg/dL (8.4-10.2); Carbon Dioxide 22 mmol/L (22-30); Chloride 96 mmol/L (98-107); Cholesterol 132 mg/dL (0-200); Estimated CRCL calculation 28 ml/min; Estimated Glomerular Filt Rate 27; Glucose 152 mg/dL (65-105); HDL Direct 70 mg/dL; Potassium 4.7 mmol/L (3.4-5.0); Sodium 126 mmol/L (137-145); Triglycerides 40 mg/dL (<150)
[2020-02-12 05:25] LABS: Hemoglobin A1C 5.6 % (<5.7)
[2020-02-12 05:30] LABS: LDL Cholesterol Direct 48 mg/dL
--- NOTE | 2020-02-12 08:33 | PCPTNOTE ---
Attempted therapy session. Held per RN due to increased orthostatic BP. RN wants to discuss with physician before therapy treats Pt.
[2020-02-12] MEDS: ATORVASTATIN 10 MG TABLET PO (09:02)
[2020-02-12] MEDS: IBUPROFEN 200 MG TABLET 400 MG PO ×2 (09:02→20:36)
[2020-02-12] MEDS: PANTOPRAZOLE 40 MG TABLET PO (09:02)
[2020-02-12] MEDS: FOLIC ACID 1 MG TABLET PO (09:02)
[2020-02-12 09:49] LABS: Glucose Point of Care 163 (65-105)
--- NOTE | 2020-02-12 10:03 | PM.IMPN ---
Progress Note: A&P Assessment and Plan (1) Syncope and collapse: Code(s): R55 - Syncope and collapse Status: Acute Assessment and Plan: -----looks like this has been a chronic issue that is worsening. She has been significantly orthostatic. Today she was 130/56 at supine and sitting she went 88/42. This is likely causing her dizziness and vomiting. I have spoken with Dr. Ann and we are going to continue 3 hours worth of IV fluids again today and then recheck a sodium later. Her sodium is better at 126 today. Etiology for her syncope and dizziness may be multifactorial which includes orthostatic hypotension and possible episodes of hypoglycemia. Her cortisol is normal, Dike's disease ruled out. The patient does drink alcohol daily and volume depletion is likely. She was told that she needs to cut out her alcohol and she seems to understand this. It does not appear cardiac since she has presyncopal episodes and her echo is clear. Telemetry has not had any arrhythmias as well. It is unclear if it is BPV as she is unsure if moving her head worsens the dizziness but seems unlikely. She also understands that she needs to get her glucose check every time this happens to her to make sure this is not low glucose as well. A1c back in August was 4.9 and she is on Lantus at home with 5 units of insulin with meals. Her insulin regimen will likely be changed at discharge. Her metoprolol has also been held. We will see how the Galo hose, fluids, sodium adjustment and holding the metoprolol do. If neither of these improve her blood pressure may need to try midodrine although I am hoping to avoid this if possible. CT brain shows chronic small vessel changes, moderate atrophy with no acute intracranial findings. Carotid Dopplers show 50-69% stenosis. I do not think this is enough to cause her dizziness but is certainly not helping when her blood pressure drops. Aspirin and atorvastatin have been started. She will need to follow-up with this closely outpatient. (2) Hyponatremia: Code(s): E87.1 - Hypo-osmolality and hyponatremia Status: Acute Assessment and Plan: -----125 today after the patient was receiving 3 hours worth of IV fluids yesterday. I believe this may be actually hypovolemia as it looks like the IV fluids are helping. I will draw sodium at 3:00 p.m. and if it is still improving, I will stop the fluid restriction. I have spoken to Nephrology about this. (3) Acute renal failure: Qualifiers: Acute renal failure type: unspecified Qualified Code(s): N17.9 - Acute kidney failure, unspecified Code(s): N17.9 - Acute kidney failure, unspecified Status: Acute Assessment and Plan: -----I believe this is probably her baseline. She has underlying diabetes which can affect kidneys. UA negative for infection. (4) Nausea & vomiting: Qualifiers: Vomiting type: unspecified Vomiting Intractability: non-intractable Qualified Code(s): R11.2 - Nausea with vomiting, unspecified Code(s): R11.2 - Nausea with vomiting, unspecified Status: Acute Assessment and Plan: -----resolved. (5) Diarrhea: Qualifiers: Diarrhea type: unspecified type Qualified Code(s): R19.7 - Diarrhea, unspecified Code(s): R19.7 - Diarrhea, unspecified Status: Acute Assessment and Plan: -----resolved (6) Leukocytosis: Qualifiers: Leukocytosis type: unspecified Qualified Code(s): D72.829 - Elevated white blood cell count, unspecified Code(s): D72.829 - Elevated white blood cell count, unspecified Status: Acute Assessment and Plan: -----likely reactive. No infection suspected. Within normal limits today. (7) Ascites: Qualifiers: Ascites type: due to alcoholic cirrhosis Qualified Code(s): K70.31 - Alcoholic cirrhosis of liver with ascites Code(s):
[2020-02-12] MEDS: SODIUM CHLORIDE 0.9% IV 250 ML 75 ML IV CONT (11:45)
[2020-02-12 12:08] LABS: Glucose Point of Care 197 (65-105)
--- NOTE | 2020-02-12 13:59 | PCPTNOTE ---
Attempted therapy session. Pt out of room for CT. Per nursing if we are able to see Pt monitor BP closely. Will attempt again.
[2020-02-12 15:03] LABS: Sodium 128 mmol/L (137-145)
[2020-02-12 16:38] LABS: Albumin 3.8 g/dL (3.8-4.8); Alpha 1 Globulin 0.2 g/dL (0.2-0.3); Alpha 2 Globulin 0.5 g/dL (0.5-0.9); Beta 1 Globulin 0.4 g/dL (0.4-0.6); Gamma Globulin 0.7 g/dL (0.8-1.7); Interpretation Consistent with; Protein, Total 5.9 g/dL (6.1-8.1)
--- NOTE | 2020-02-12 18:08 | P.PNNP_ITS ---
Progress Note: A&P Assessment and Plan (1) Acute renal failure: Qualifiers: Acute renal failure type: unspecified Qualified Code(s): N17.9 - Acute kidney failure, unspecified Code(s): N17.9 - Acute kidney failure, unspecified Status: Acute Assessment and Plan: * history would argue in favor of volume depletion/dehydration (nausea + vomiting + diarrhea) * other risk factors include NSAID, ARB, spironolactone use as well as underlying liver disease * creatinine relatively stable -- perhaps this is just her baseline kidney function (?) * renal ultrasound noted * urine lytes c/w pre-renal azotemia (which could be misleading as liver physiology could demonstrate this as well) * given positive orthostatics, continue with short runs of IV normal saline (75cc/hr x 3 hours) * follow repeat labs and UOP (2) Hyponatremia: Code(s): E87.1 - Hypo-osmolality and hyponatremia Status: Acute Assessment and Plan: * mild improvement in the last 24 hours * see what repeat sodium level is -- rechallenging with NS IVFs (see #1) * follow trend of repeat sodium levels (3) Syncope and collapse: Code(s): R55 - Syncope and collapse Status: Acute Assessment and Plan: * related to #1 or #2 or something else? * agree with checking cortisol * follow symptoms (4) Nausea, vomiting and diarrhea: Code(s): R11.2 - Nausea with vomiting, unspecified; R19.7 - Diarrhea, unspecified Status: Acute Assessment and Plan: * somewhat better * continue supportive therapy (5) Alcoholic cirrhosis of liver with ascites: Code(s): K70.31 - Alcoholic cirrhosis of liver with ascites Status: Acute Assessment and Plan: * chronic issue * spironolactone on hold Will continue to follow. Subjective Date/time seen: 02/12/20 18:08 Seems to be doing better in general; sodium appears to be improving with short runs of IV normal saline (75cc/hr x 3 hours); renal function about the same; no other acute complaints voiced. Exam Narrative: Exam Narrative: General: WD/WN female in NAD Heart: normal S1 and S2; no rub Lungs: clear to auscultation Abdomen: soft, nontender, + ascites positive bowel sounds Extremities: no cyanosis or clubbing; trace edema Skin: warm and intact Objective Data Vital Signs Vital Signs: Vital Signs Temp Pulse Pulse Resp BP Pulse Ox 02/12/20 14:00 36.5 C 90 16 106/52 L 100 02/12/20 10:00 36.3 C L 88 16 106/46 L 100 02/12/20 09:05 101 H 88/42 L 02/12/20 09:00 90 130/56 L 02/12/20 08:00 86 02/12/20 04:00 36.2 C L 85 18 129/61 100 02/12/20 00:02 36.5 C 84 16 116/59 L 100 02/12/20 00:00 84 02/11/20 20:41 37.2 C 92 16 131/62 100 02/11/20 20:00 90 Intake/Output Intake/Output: Intake & Output 02/09/20 02/10/20 02/11/20 02/12/20 23:59 23:59 23:59 23:59 Intake Total 833 833 2629 585 Output Total 1125 550 650 Balance 100 -355 1115 -65 Meds/Results Medications: Active Medications Generic Name Dose Route Start Last Admin Trade Name Freq PRN Reason Stop Dose Admin Atorvastatin Calcium 10 mg 02/11/20 09:00 02/12/20 09:02 Lipitor PO 10 mg DAILY NEIL Administr
--- NOTE | 2020-02-12 18:08 | PM.PNNEP ---
Progress Note: A&P Assessment and Plan (1) Acute renal failure: Qualifiers: Acute renal failure type: unspecified Qualified Code(s): N17.9 - Acute kidney failure, unspecified Code(s): N17.9 - Acute kidney failure, unspecified Status: Acute Assessment and Plan: history would argue in favor of volume depletion/dehydration (nausea + vomiting + diarrhea) other risk factors include NSAID, ARB, spironolactone use as well as underlying liver disease creatinine relatively stable -- perhaps this is just her baseline kidney function (?) renal ultrasound noted urine lytes c/w pre-renal azotemia (which could be misleading as liver physiology could demonstrate this as well) given positive orthostatics, continue with short runs of IV normal saline (75cc/hr x 3 hours) follow repeat labs and UOP (2) Hyponatremia: Code(s): E87.1 - Hypo-osmolality and hyponatremia Status: Acute Assessment and Plan: mild improvement in the last 24 hours see what repeat sodium level is -- rechallenging with NS IVFs (see #1) follow trend of repeat sodium levels (3) Syncope and collapse: Code(s): R55 - Syncope and collapse Status: Acute Assessment and Plan: related to #1 or #2 or something else? agree with checking cortisol follow symptoms (4) Nausea, vomiting and diarrhea: Code(s): R11.2 - Nausea with vomiting, unspecified; R19.7 - Diarrhea, unspecified Status: Acute Assessment and Plan: somewhat better continue supportive therapy (5) Alcoholic cirrhosis of liver with ascites: Code(s): K70.31 - Alcoholic cirrhosis of liver with ascites Status: Acute Assessment and Plan: chronic issue spironolactone on hold Will continue to follow. Subjective Date/time seen: 02/12/20 18:08 Seems to be doing better in general; sodium appears to be improving with short runs of IV normal saline (75cc/hr x 3 hours); renal function about the same; no other acute complaints voiced. Exam Narrative: Exam Narrative: General: WD/WN female in NAD Heart: normal S1 and S2; no rub Lungs: clear to auscultation Abdomen: soft, nontender, + ascites positive bowel sounds Extremities: no cyanosis or clubbing; trace edema Skin: warm and intact Objective Data Vital Signs Vital Signs: Vital Signs Temp Pulse Pulse Resp BP Pulse Ox 04/29/20 14:00 36.5 C 90 16 106/52 L 100 02/12/20 10:00 36.3 C L 88 16 106/46 L 100 02/12/20 09:05 101 H 88/42 L 02/12/20 09:00 90 130/56 L 02/12/20 08:00 86 02/12/20 04:00 36.2 C L 85 18 129/61 100 02/12/20 00:02 36.5 C 84 16 116/59 L 100 02/12/20 00:00 84 02/11/20 20:41 37.2 C 92 16 131/62 100 02/11/20 20:00 90 Intake/Output Intake/Output: Intake & Output 02/09/20 02/10/20 02/11/20 02/12/20 23:59 23:59 23:59 23:59 Intake Total 231 191 5987 585 Output Total 1125 550 650 Balance 100 -355 1115 -65 Meds/Results Medications: Active Medications Generic Name Dose Route Start Last Admin Trade Name Freq PRN Reason Stop Dose Admin Atorvastatin Calcium 10 mg 02/11/20 09:00 02/12/20 09:02 Lipitor PO 10 mg DAILY NEIL Administration Dextrose 12.5 gm 02/09/20 20:29 Dextrose 50% Syringe IV PUSH PRN PRN Hypoglycemia Protocol Folic Acid 1 mg 02/11/20 09:00 02/12/20 09:02 Folic Acid PO 1 mg DAILY NEIL Administration Glucagon 1 mg 02/09/20 20:29 Glucagon For Inj IM PRN PRN Hypoglycemia Protocol Dextrose 1,000 mls @ 100 mls/hr 02/09/20 20:29 Dextrose 5% 1,000 Ml IVPB PRN PRN Hypoglycemia Protocol Ibuprofen 400 mg 02/10/20 12:57 02/12/20 09:02 Motrin PO 400 mg Q6H PRN Administration Pain or Fever Insulin Aspart 2 - 5 units 02/10/20 08:00 02/12/20 17:06 Novolog SUB-Q Not Given TIDWM NEIL Protocol Meclizine HCl 12.5 mg
[2020-02-12 18:11] LABS: Glucose Point of Care 173 (65-105)
[2020-02-12 22:36] LABS: Glucose Point of Care 203 (65-105)
[2020-02-13] VITALS (15 sets, daily range): BP systolic 114–155; BP diastolic 43–110; PULSE 89–161; RESP 18–21; TEMP 36.1–36.4; O2SAT 96–100
[2020-02-13 07:54] LABS: Glucose Point of Care 162 (65-105)
[2020-02-13] MEDS: FOLIC ACID 1 MG TABLET PO (09:01)
[2020-02-13] MEDS: PANTOPRAZOLE 40 MG TABLET PO (09:01)
[2020-02-13] MEDS: ATORVASTATIN 10 MG TABLET PO (09:01)
[2020-02-13] MEDS: ACETAMINOPHEN 325 MG TABLET PO ×4 (09:05→23:03)
[2020-02-13 09:08] LABS: Blood Urea Nitrogen 20 mg/dL (7-17); Calcium 9.3 mg/dL (8.4-10.2); Carbon Dioxide 23 mmol/L (22-30); Chloride 96 mmol/L (98-107); Estimated CRCL calculation 34 ml/min; Estimated Glomerular Filt Rate 32; Glucose 192 mg/dL (65-105); Magnesium 1.5 mg/dL (1.6-2.3); Potassium 4.5 mmol/L (3.4-5.0); Sodium 128 mmol/L (137-145)
--- NOTE | 2020-02-13 09:30 | PCOTNOTE ---
Hold OT treatment this date. Awaiting Orthopedic consult for further instruction.
[2020-02-13 11:28] LABS: Glucose Point of Care 204 (65-105)
[2020-02-13] MEDS: INSULIN ASPART (*BKC) 100 UNITS/ML SUB-Q (11:34)
--- NOTE | 2020-02-13 12:41 | PM.CNOR ---
Assessment and Plan Assessment and plan (1) Periprosthetic fracture around internal prosthetic right hip joint: Qualifiers: Encounter type: initial encounter Qualified Code(s): M97.01XA - Periprosthetic fracture around internal prosthetic right hip joint, initial encounter Code(s): M97.01XA - Periprosthetic fracture around internal prosthetic right hip joint, initial encounter Status: Acute Assessment and Plan: 64-year-old female with what is essentially a type A right hip periprosthetic femur fracture. I consulted with Dr. Nicholson at [place] through his fellow. After reviewing the x-rays and the CT scan, the recommendation was at this point nonsurgical treatment with close x-ray follow-up. She will start be mobilized today and hopefully will be able to get her onto the rehab floor. Plan on repeat x-ray early part of next week. Thank you for the consultation. History of Present Illness HPI Consult date: 02/13/20 Consult reason: fracture (Right femur periprosthetic fracture) Chief complaint: syncope Narrative: 64-year-old female who had a syncopal episode at home a few days ago causing her to fall landing on her right hip laterally. She has been complaining of pain in her right hip. X-rays and CT were ordered which show a periprosthetic right femur fracture. She has a history of having had a right total hip replacement done in [place] in 2005. The pain in her right lower extremity is in the proximal thigh with weight-bearing. Review of Systems Constitutional: Constitutional: Reports no additional constitutional complaints, Denies excessive sweating and Denies fatigue Eyes: Eyes: Reports no additional eye complaints ENT: Reports system reviewed and no additional complaints, except as documented Cardiovascular: Cardiovascular: Denies chest pain at rest and Denies dyspnea Respiratory: Respiratory: Reports no additional respiratory complaints and Denies dyspnea Gastrointestinal: Gastrointestinal: Reports no additional gastrointestinal complaints Musculoskeletal: Musculoskeletal: Reports as per HPI Integumentary/Breasts: Skin/Breast: Reports system reviewed and no additional complaints, except as docu Neurologic: Reports as per HPI Endocrine: Endocrine: Denies excessive sweating and Denies fatigue Hematologic/Lymphatic: Hematologic/Lymphatic: Denies easy bleeding and Denies easy bruising PMFSH Past Medical History Medical History (Updated 02/13/20 @ 12:48 by Deny Baig MD) Alcoholic liver disease Diabetes mellitus GERD (gastroesophageal reflux disease) HTN (hypertension) with goal to be determined Surgical History Surgical History (Updated 02/13/20 @ 12:43 by Deny Baig MD) History of right hip replacement 2005 Dr. Curiel in [place] Family History Family History Father Heart attack Mother Hypertension Mother Diabetes mellitus Mother COPD (chronic obstructive pulmonary disease) Sibling Diabetes mellitus Son No problems noted. Sibling Amputation above knee Social History Social History Smoking status: Former smoker Tobacco type: cigarettes Second hand tobacco smoke exposure: No Smoking end date: 10/16/04 Alcohol intake: current Drinks per week: 7 Substance use: never Gender identity (if verbalized by the patient): Female Spiritual care concerns: No Agree to blood products: Yes Meds Home Medications and Allergies Home Medications Medication Instructions Recorded Confirmed Type folic acid 1 mg tablet 1 mg PO DAILY #90 tablet 08/23/19 02/09/20 Rx spironolactone 25 mg tablet 25 mg PO DAILY #90 tablet 09/17/19 02/09/20 Rx metoprolol succinate 50 mg 50 mg PO DAILY #90 tablet 10/11/19 02/09/20 Rx tablet,extended release 24 hr blood sugar diagnostic #400 each 12/31/19 02/09/20 Rx losartan 50 mg tablet 50 mg PO DA
--- NOTE | 2020-02-13 14:42 | PM.IMPN ---
Progress Note: A&P Assessment and Plan (1) Syncope and collapse: Code(s): R55 - Syncope and collapse Status: Acute Assessment and Plan: -----looks like this has been a chronic issue that is worsening. She has been significantly orthostatic but this is improving with the fluids and the correction of her sodium. Today was the first day she was not orthostatic and she has not had any pre-syncopal symptoms today. Her sodium is better at 128 today. Etiology for her syncope and dizziness may be multifactorial which includes orthostatic hypotension and possible episodes of hypoglycemia. Her cortisol is normal, Samy's disease ruled out. The patient does drink alcohol daily and volume depletion is likely. She was told that she needs to cut out her alcohol and she seems to understand this. It does not appear cardiac since she has presyncopal episodes and her echo is clear. Telemetry has not had any arrhythmias as well and will be discontinued. It is unclear if it is BPV as she is unsure if moving her head worsens the dizziness but seems unlikely. She also understands that she needs to get her glucose check every time this happens to her to make sure this is not low glucose as well. A1c back in August was 4.9 and she is on Lantus at home with 5 units of insulin with meals. Her insulin regimen will likely be changed at discharge. Her metoprolol has also been held. We will see how the Galo hose, fluids, sodium adjustment and holding the metoprolol do. Consider midodrine if she continues to be orthostatic. CT brain shows chronic small vessel changes, moderate atrophy with no acute intracranial findings. Carotid Dopplers show 50-69% stenosis. I do not think this is enough to cause her dizziness but is certainly not helping when her blood pressure drops. Aspirin and atorvastatin have been started. She will need to follow-up with this closely outpatient. (2) Hyponatremia: Code(s): E87.1 - Hypo-osmolality and hyponatremia Status: Acute Assessment and Plan: -----128 today after the patient was receiving 3 hours worth of IV fluids yesterday. I believe this may be actually hypovolemia as it looks like the IV fluids are helping. Fluid restriction has been lifted. (3) Acute renal failure: Qualifiers: Acute renal failure type: unspecified Qualified Code(s): N17.9 - Acute kidney failure, unspecified Code(s): N17.9 - Acute kidney failure, unspecified Status: Acute Assessment and Plan: -----I believe this is probably her baseline. She has underlying diabetes which can affect kidneys. UA negative for infection. (4) Nausea & vomiting: Qualifiers: Vomiting type: unspecified Vomiting Intractability: non-intractable Qualified Code(s): R11.2 - Nausea with vomiting, unspecified Code(s): R11.2 - Nausea with vomiting, unspecified Status: Acute Assessment and Plan: -----resolved. (5) Diarrhea: Qualifiers: Diarrhea type: unspecified type Qualified Code(s): R19.7 - Diarrhea, unspecified Code(s): R19.7 - Diarrhea, unspecified Status: Acute Assessment and Plan: -----resolved (6) Leukocytosis: Qualifiers: Leukocytosis type: unspecified Qualified Code(s): D72.829 - Elevated white blood cell count, unspecified Code(s): D72.829 - Elevated white blood cell count, unspecified Status: Acute Assessment and Plan: -----likely reactive. No infection suspected. Within normal limits today. (7) Ascites: Qualifiers: Ascites type: due to alcoholic cirrhosis Qualified Code(s): K70.31 - Alcoholic cirrhosis of liver with ascites Code(s): R18.8 - Other ascites Status: Chronic Assessment and Plan: ------Patient notes she has not required paracentesis in about 10 years. She is not having any troubles with this. (8) Chronic anemia:
[2020-02-13 14:46] LABS: Myoglobin, Urine <27 mcg/L (<28)
--- NOTE | 2020-02-13 16:12 | P.PNNP_ITS ---
Progress Note: A&P Assessment and Plan (1) Acute renal failure: Qualifiers: Acute renal failure type: unspecified Qualified Code(s): N17.9 - Acute kidney failure, unspecified Code(s): N17.9 - Acute kidney failure, unspecified Status: Acute Assessment and Plan: * history would argue in favor of volume depletion/dehydration (nausea + vomiting + diarrhea) * other risk factors include NSAID, ARB, spironolactone use as well as underlying liver disease * creatinine relatively stable -- perhaps this is just her baseline kidney function (?) * renal ultrasound noted * urine lytes c/w pre-renal azotemia (which could be misleading as liver physiology could demonstrate this as well) * follow repeat labs and UOP (2) Hyponatremia: Code(s): E87.1 - Hypo-osmolality and hyponatremia Status: Acute Assessment and Plan: * slow improvement noted since admission * suspect more related to hypovolemia given improvement with IVFs * follow trend of repeat sodium levels (3) Syncope and collapse: Code(s): R55 - Syncope and collapse Status: Acute Assessment and Plan: * related to #1 or #2 or something else? * appears more of a chronic issues at baseline * improvement noted with IVFs and correction of sodium * follow symptoms (4) Nausea, vomiting and diarrhea: Code(s): R11.2 - Nausea with vomiting, unspecified; R19.7 - Diarrhea, unspecified Status: Acute Assessment and Plan: * somewhat better * continue supportive therapy (5) Periprosthetic fracture around internal prosthetic right hip joint: Qualifiers: Encounter type: initial encounter Qualified Code(s): M97.01XA - Periprosthetic fracture around internal prosthetic right hip joint, initial encounter Code(s): M97.01XA - Periprosthetic fracture around internal prosthetic right hip joint, initial encounter Status: Acute Assessment and Plan: * Orthopedics following with recommendations noted * continue supportive therapy (6) Alcoholic cirrhosis of liver with ascites: Code(s): K70.31 - Alcoholic cirrhosis of liver with ascites Status: Acute Assessment and Plan: * chronic issue * spironolactone on hold Will continue to follow. Subjective Date/time seen: 02/13/20 16:12 Doing quite well at this time; no apparent lightheadedness noted today; s/p run of IVFs (normal saline x 3 hours) yesterday and tolerated well with improvement in sodium noted; no apparent distress voiced today; noted new issue with regard to hip fracture. Exam Narrative: Exam Narrative: General: WD/WN female in NAD Heart: normal S1 and S2; no rub Lungs: clear to auscultation Abdomen: soft, nontender, + ascites positive bowel sounds Extremities: no cyanosis or clubbing; trace edema Skin: no rash or nodules Objective Data Vital Signs Vital Signs: Vital Signs Temp Pulse Resp BP Pulse Ox 02/13/20 14:00 36.4 C 102 H 18 144/75 H 100 02/13/20 12:00 104 H 02/13/20 10:15 106 H 114/64 100 02/13/20 09:38 36.3 C L 106 H 18 138/54 L 97 02/13/20 09:27 161 H 139/110 H 02/13/20 09:25 106 H 133/43 L 02/13/20 09:23 106 H 138/54 L 02/13/20 08:00 99 02/13/20 06:00 36.3 C L 89 21 H 132/65 100 02/13/20 04:00 89 02/13/20 02:00 36.1 C L 90 21 H 142/62 H 100 02/13/20
--- NOTE | 2020-02-13 16:12 | PM.PNNEP ---
Progress Note: A&P Assessment and Plan (1) Acute renal failure: Qualifiers: Acute renal failure type: unspecified Qualified Code(s): N17.9 - Acute kidney failure, unspecified Code(s): N17.9 - Acute kidney failure, unspecified Status: Acute Assessment and Plan: history would argue in favor of volume depletion/dehydration (nausea + vomiting + diarrhea) other risk factors include NSAID, ARB, spironolactone use as well as underlying liver disease creatinine relatively stable -- perhaps this is just her baseline kidney function (?) renal ultrasound noted urine lytes c/w pre-renal azotemia (which could be misleading as liver physiology could demonstrate this as well) follow repeat labs and UOP (2) Hyponatremia: Code(s): E87.1 - Hypo-osmolality and hyponatremia Status: Acute Assessment and Plan: slow improvement noted since admission suspect more related to hypovolemia given improvement with IVFs follow trend of repeat sodium levels (3) Syncope and collapse: Code(s): R55 - Syncope and collapse Status: Acute Assessment and Plan: related to #1 or #2 or something else? appears more of a chronic issues at baseline improvement noted with IVFs and correction of sodium follow symptoms (4) Nausea, vomiting and diarrhea: Code(s): R11.2 - Nausea with vomiting, unspecified; R19.7 - Diarrhea, unspecified Status: Acute Assessment and Plan: somewhat better continue supportive therapy (5) Periprosthetic fracture around internal prosthetic right hip joint: Qualifiers: Encounter type: initial encounter Qualified Code(s): M97.01XA - Periprosthetic fracture around internal prosthetic right hip joint, initial encounter Code(s): M97.01XA - Periprosthetic fracture around internal prosthetic right hip joint, initial encounter Status: Acute Assessment and Plan: Orthopedics following with recommendations noted continue supportive therapy (6) Alcoholic cirrhosis of liver with ascites: Code(s): K70.31 - Alcoholic cirrhosis of liver with ascites Status: Acute Assessment and Plan: chronic issue spironolactone on hold Will continue to follow. Subjective Date/time seen: 02/13/20 16:12 Doing quite well at this time; no apparent lightheadedness noted today; s/p run of IVFs (normal saline x 3 hours) yesterday and tolerated well with improvement in sodium noted; no apparent distress voiced today; noted new issue with regard to hip fracture. Exam Narrative: Exam Narrative: General: WD/WN female in NAD Heart: normal S1 and S2; no rub Lungs: clear to auscultation Abdomen: soft, nontender, + ascites positive bowel sounds Extremities: no cyanosis or clubbing; trace edema Skin: no rash or nodules Objective Data Vital Signs Vital Signs: Vital Signs Temp Pulse Resp BP Pulse Ox 02/13/20 14:00 36.4 C 102 H 18 144/75 H 100 02/13/20 12:00 104 H 02/13/20 10:15 106 H 114/64 100 02/13/20 09:38 36.3 C L 106 H 18 138/54 L 97 02/13/20 09:27 161 H 139/110 H 02/13/20 09:25 106 H 133/43 L 02/13/20 09:23 106 H 138/54 L 02/13/20 08:00 99 02/13/20 06:00 36.3 C L 89 21 H 132/65 100 02/13/20 04:00 89 02/13/20 02:00 36.1 C L 90 21 H 142/62 H 100 02/13/20 00:00 93 02/12/20 22:00 36.2 C L 99 21 H 168/67 H 100 02/12/20 20:00 98 02/12/20 18:00 36.2 C L 98 16 135/60 100 Intake/Output Intake/Output: Intake & Output 02/10/20 02/11/20 02/12/20 02/13/20 23:59 23:59 23:59 23:59 Intake Total 770 6011 134 3271 Output Total 1125 917 100 4289 Balance -355 1115 175 -45 Meds/Results Medications: Active Medications Generic Name Dose Route Start Last Admin Trade Name Freq PRN Reason Stop Dose Admin Acetaminophen 325 mg 02/13/20 08:45 02/13/20 11:34 Tylenol Tablet PO 325 mg Q6HR [facility] Administrat
[2020-02-13] MEDS: SODIUM CHLORIDE 0.9% IV 250 ML 100 ML IV CONT (16:19)
[2020-02-13 17:55] LABS: Glucose Point of Care 171 (65-105)
[2020-02-13] MEDS: IBUPROFEN 200 MG TABLET 400 MG PO (21:16)
[2020-02-13] MEDS: MAGNESIUM OXIDE 200 MG TABLET PO (21:16)
[2020-02-13 21:37] LABS: Glucose Point of Care 181 (65-105)
[2020-02-14] VITALS (9 sets, daily range): BP systolic 124–164; BP diastolic 56–98; PULSE 93–154; RESP 18–21; TEMP 35.9–36.4; O2SAT 100
[2020-02-14 05:15] LABS: Hematocrit 27.3 % (37.0-47.0); Hemoglobin 9.5 g/dL (12.0-15.0); Mean Corpuscular HGB Conc 34.8 g/dl (32-36); Mean Corpuscular Hemoglobin 32.8 pg (26-34); Mean Corpuscular Volume 94.1 fl (80-100); Mean Platelet Volume 10.7 fl (7.4-10.4); Platelet Count Result 171 k/mm3 (150-375); Red Cell Distribution Width 11.8 % (11.5-14.5); White Blood Count 6.3 K/mm3 (4.5-10.0)
[2020-02-14] MEDS: ACETAMINOPHEN 325 MG TABLET PO ×4 (05:19→23:55)
[2020-02-14 05:24] LABS: Blood Urea Nitrogen 20 mg/dL (7-17); Calcium 9.2 mg/dL (8.4-10.2); Carbon Dioxide 23 mmol/L (22-30); Chloride 97 mmol/L (98-107); Estimated CRCL calculation 36 ml/min; Estimated Glomerular Filt Rate 35; Glucose 149 mg/dL (65-105); Magnesium 1.5 mg/dL (1.6-2.3); Potassium 4.7 mmol/L (3.4-5.0); Sodium 129 mmol/L (137-145)
[2020-02-14 07:55] LABS: Glucose Point of Care 149 (65-105)
[2020-02-14] MEDS: FOLIC ACID 1 MG TABLET PO (08:31)
[2020-02-14] MEDS: MAGNESIUM OXIDE 200 MG TABLET PO ×2 (08:31→20:37)
[2020-02-14] MEDS: PANTOPRAZOLE 40 MG TABLET PO (08:31)
[2020-02-14] MEDS: ATORVASTATIN 10 MG TABLET PO (08:31)
[2020-02-14] MEDS: IBUPROFEN 200 MG TABLET 400 MG PO ×2 (08:34→20:38)
[2020-02-14] MEDS: MAGNESIUM SULF 2 GM/WATER 50ML 2 GM/50 ML BAG IVPB (11:05)
[2020-02-14 11:28] LABS: Glucose Point of Care 206 (65-105)
[2020-02-14] MEDS: INSULIN ASPART (*BKC) 100 UNITS/ML SUB-Q (11:32)
--- NOTE | 2020-02-14 13:23 | P.PNNP_ITS ---
Progress Note: A&P Assessment and Plan (1) Acute renal failure: Qualifiers: Acute renal failure type: unspecified Qualified Code(s): N17.9 - Acute kidney failure, unspecified Code(s): N17.9 - Acute kidney failure, unspecified Status: Acute Assessment and Plan: * history would argue in favor of volume depletion/dehydration (nausea + vomiting + diarrhea) * other risk factors include NSAID, ARB, spironolactone use as well as underlying liver disease * creatinine relatively stable -- baseline creatinine ~ 1.0 - 1.5mg/dl although more recently (Jul 2019) it was 1.3 - 1.5mg/dl * renal ultrasound noted * urine lytes c/w pre-renal azotemia (which could be misleading as liver physiology could demonstrate this as well) * follow repeat labs and UOP (2) Hyponatremia: Code(s): E87.1 - Hypo-osmolality and hyponatremia Status: Acute Assessment and Plan: * acute on chronic * baseline sodium runs ~ 126 - 132 from review of records * slow improvement noted since admission * suspect more related to hypovolemia given improvement with IVFs * follow trend of repeat sodium levels (3) Syncope and collapse: Code(s): R55 - Syncope and collapse Status: Acute Assessment and Plan: * related to #1 or #2 or something else? * appears more of a chronic issues at baseline * improvement noted with IVFs and correction of sodium * follow symptoms (4) Nausea, vomiting and diarrhea: Code(s): R11.2 - Nausea with vomiting, unspecified; R19.7 - Diarrhea, unspecified Status: Acute Assessment and Plan: * significant improvement * continue supportive therapy (5) Periprosthetic fracture around internal prosthetic right hip joint: Qualifiers: Encounter type: initial encounter Qualified Code(s): M97.01XA - Periprosthetic fracture around internal prosthetic right hip joint, initial encounter Code(s): M97.01XA - Periprosthetic fracture around internal prosthetic right hip joint, initial encounter Status: Acute Assessment and Plan: * Orthopedics following with recommendations noted * continue conservative therapy * transfer to [facility](?) (6) Alcoholic cirrhosis of liver with ascites: Code(s): K70.31 - Alcoholic cirrhosis of liver with ascites Status: Acute Assessment and Plan: * chronic issue * spironolactone on hold Will continue to follow. Subjective Date/time seen: 02/14/20 13:23 She seems to be doing quite well at the the time of my visit; she is motivated for therapy as she wants to continue conservative therapy for her hip fracture; no further dizziness or lightheadedness. Exam Narrative: Exam Narrative: General: WD/WN female in NAD Heart: normal S1 and S2; no rub Lungs: clear to auscultation Abdomen: soft, nontender, + ascites positive bowel sounds Extremities: no cyanosis or clubbing; trace edema Skin: warm and dry Objective Data Vital Signs Vital Signs: Vital Signs Temp Pulse Resp BP Pulse Ox 02/14/20 10:00 36.1 C L 101 H 18 124/59 L 100 02/14/20 09:15 154 H 143/98 H 02/14/20 09:13 112 H 139/67 02/14/20 09:09 101 H 133/56 L 02/14/20 06:00 35.9 C L 93 21 H 154/76 H 100 02/14/20 02:00 36.1 C L 98 21 H 150/74 H 100 02/13/20 22:00 36.2 C L 95 21 H 155/74 H 100 02/13/20 17:47 36.3 C L 131 H 18 150/65 H 96 02/13/20 16
--- NOTE | 2020-02-14 13:23 | PM.PNNEP ---
Progress Note: A&P Assessment and Plan (1) Acute renal failure: Qualifiers: Acute renal failure type: unspecified Qualified Code(s): N17.9 - Acute kidney failure, unspecified Code(s): N17.9 - Acute kidney failure, unspecified Status: Acute Assessment and Plan: history would argue in favor of volume depletion/dehydration (nausea + vomiting + diarrhea) other risk factors include NSAID, ARB, spironolactone use as well as underlying liver disease creatinine relatively stable -- baseline creatinine ~ 1.0 - 1.5mg/dl although more recently (Jul 2019) it was 1.3 - 1.5mg/dl renal ultrasound noted urine lytes c/w pre-renal azotemia (which could be misleading as liver physiology could demonstrate this as well) follow repeat labs and UOP (2) Hyponatremia: Code(s): E87.1 - Hypo-osmolality and hyponatremia Status: Acute Assessment and Plan: acute on chronic baseline sodium runs ~ 126 - 132 from review of records slow improvement noted since admission suspect more related to hypovolemia given improvement with IVFs follow trend of repeat sodium levels (3) Syncope and collapse: Code(s): R55 - Syncope and collapse Status: Acute Assessment and Plan: related to #1 or #2 or something else? appears more of a chronic issues at baseline improvement noted with IVFs and correction of sodium follow symptoms (4) Nausea, vomiting and diarrhea: Code(s): R11.2 - Nausea with vomiting, unspecified; R19.7 - Diarrhea, unspecified Status: Acute Assessment and Plan: significant improvement continue supportive therapy (5) Periprosthetic fracture around internal prosthetic right hip joint: Qualifiers: Encounter type: initial encounter Qualified Code(s): M97.01XA - Periprosthetic fracture around internal prosthetic right hip joint, initial encounter Code(s): M97.01XA - Periprosthetic fracture around internal prosthetic right hip joint, initial encounter Status: Acute Assessment and Plan: Orthopedics following with recommendations noted continue conservative therapy transfer to [facility](?) (6) Alcoholic cirrhosis of liver with ascites: Code(s): K70.31 - Alcoholic cirrhosis of liver with ascites Status: Acute Assessment and Plan: chronic issue spironolactone on hold Will continue to follow. Subjective Date/time seen: 02/14/20 13:23 She seems to be doing quite well at the the time of my visit; she is motivated for therapy as she wants to continue conservative therapy for her hip fracture; no further dizziness or lightheadedness. Exam Narrative: Exam Narrative: General: WD/WN female in NAD Heart: normal S1 and S2; no rub Lungs: clear to auscultation Abdomen: soft, nontender, + ascites positive bowel sounds Extremities: no cyanosis or clubbing; trace edema Skin: warm and dry Objective Data Vital Signs Vital Signs: Vital Signs Temp Pulse Resp BP Pulse Ox 02/14/20 10:00 36.1 C L 101 H 18 124/59 L 100 02/14/20 09:15 154 H 143/98 H 02/14/20 09:13 112 H 139/67 02/14/20 09:09 101 H 133/56 L 02/14/20 06:00 35.9 C L 93 21 H 154/76 H 100 02/14/20 02:00 36.1 C L 98 21 H 150/74 H 100 02/13/20 22:00 36.2 C L 95 21 H 155/74 H 100 02/13/20 17:47 36.3 C L 131 H 18 150/65 H 96 02/13/20 16:00 103 H 02/13/20 14:00 36.4 C 102 H 18 144/75 H 100 Intake/Output Intake/Output: Intake & Output 02/11/20 02/12/20 02/13/20 02/14/20 23:59 23:59 23:59 23:59 Intake Total 3210 360 7743 1160 Output Total 262 579 0446 1650 Balance 1115 175 670 -490 Meds/Results Medications: Active Medications Generic Name Dose Route Start Last Admin Trade Name Freq PRN Reason Stop Dose Admin Acetaminophen 325 mg 02/13/20 08:45 02/14/20 11:05 Tylenol Tablet PO 325 mg Q6HR NEIL Administration Atorvastatin Calcium 10 mg 02/11/20 09:00 05
--- NOTE | 2020-02-14 15:06 | PCPTNOTE ---
Attempted Therapy session. Pt declined treatment due to being on the phone with unemployment. Pt stated it has taken her a few days to get through and really needed to take this call. Will continue with POC tomorrow.
--- NOTE | 2020-02-14 16:03 | PM.IMPN ---
Progress Note: A&P Assessment and Plan (1) Syncope and collapse: Code(s): R55 - Syncope and collapse Status: Acute Assessment and Plan: -----likely due to orthostatic hypotension. She has been given Galo hose, fluids, and her medications have been adjusted which has resolved her symptoms and her blood pressure. She was significantly orthostatic blood but has not had any documented orthostasis in the last 2 days. Her sodium is better at 129 today. Etiology for her syncope and dizziness may be multifactorial which includes orthostatic hypotension, diuretics, metoprolol and possible episodes of hypoglycemia. Her cortisol is normal, [place]'s disease ruled out. The patient does drink alcohol daily and volume depletion is likely. She was told that she needs to cut out her alcohol and she seems to understand this. It does not appear cardiac since she has presyncopal episodes and her echo is clear. Telemetry has not had any arrhythmias as well and has been discontinued. She understands that she needs to get her glucose checked every time this happens to her to make sure this is not low glucose as well. A1c back in August was 4.9 and she is on Lantus at home with 5 units of insulin with meals. Her insulin regimen will likely be changed at discharge. Her metoprolol has also been held. CT brain shows chronic small vessel changes, moderate atrophy with no acute intracranial findings. Carotid Dopplers show 50-69% stenosis. I do not think this is enough to cause her dizziness but is certainly not helping when her blood pressure drops. Aspirin and atorvastatin have been started. She will need to follow-up with this closely outpatient. (2) Hyponatremia: Code(s): E87.1 - Hypo-osmolality and hyponatremia Status: Acute Assessment and Plan: -----129 today. I believe this may be actually hypovolemia which was worsened with diuretics. Fluid restriction has been lifted. (3) Acute renal failure: Qualifiers: Acute renal failure type: unspecified Qualified Code(s): N17.9 - Acute kidney failure, unspecified Code(s): N17.9 - Acute kidney failure, unspecified Status: Acute Assessment and Plan: -----I believe this is probably her baseline. She has underlying diabetes which can affect kidneys. UA negative for infection. (4) Nausea & vomiting: Qualifiers: Vomiting type: unspecified Vomiting Intractability: non-intractable Qualified Code(s): R11.2 - Nausea with vomiting, unspecified Code(s): R11.2 - Nausea with vomiting, unspecified Status: Acute Assessment and Plan: -----resolved. (5) Diarrhea: Qualifiers: Diarrhea type: unspecified type Qualified Code(s): R19.7 - Diarrhea, unspecified Code(s): R19.7 - Diarrhea, unspecified Status: Acute Assessment and Plan: -----resolved (6) Leukocytosis: Qualifiers: Leukocytosis type: unspecified Qualified Code(s): D72.829 - Elevated white blood cell count, unspecified Code(s): D72.829 - Elevated white blood cell count, unspecified Status: Acute Assessment and Plan: -----likely reactive. No infection suspected. Within normal limits today. (7) Ascites: Qualifiers: Ascites type: due to alcoholic cirrhosis Qualified Code(s): K70.31 - Alcoholic cirrhosis of liver with ascites Code(s): R18.8 - Other ascites Status: Chronic Assessment and Plan: ------Patient notes she has not required paracentesis in about 10 years. She is not having any troubles with this. (8) Chronic anemia: Code(s): D64.9 - Anemia, unspecified Status: Chronic Assessment and Plan: -----Chronic based on review of previous labs. May be secondary to alcoholism. No evidence of acute bleeding. (9) GERD (gastroesophageal reflux disease): Qualifiers: Esophagiti
[2020-02-14 16:47] LABS: Glucose Point of Care 191 (65-105)
[2020-02-14] MEDS: EUCERIN CREAM 120 GM JAR 1 APPLIC TOPICAL (16:56)
[2020-02-14 18:12] LABS: Creatinine, Random Urine 38 mg/dL (20-275); Total Protein/Creatinine Ratio 500 mg/g creat (21-161)
[2020-02-14] MEDS: CYCLOBENZAPRINE HCL 5 MG TABLET PO (20:37)
[2020-02-14 21:07] LABS: Glucose Point of Care 203 (65-105)
[2020-02-15] VITALS: BP 142/68; PULSE 90; RESP 20; TEMP 36.1; O2SAT 100
[2020-02-15 04:00] VITALS: BP 149/72; PULSE 93; RESP 20; TEMP 36.6; O2SAT 100
[2020-02-15] MEDS: CYCLOBENZAPRINE HCL 5 MG TABLET PO ×2 (04:52→12:50)
[2020-02-15] MEDS: ACETAMINOPHEN 325 MG TABLET PO ×2 (05:46→11:22)
[2020-02-15 07:23] LABS: Blood Urea Nitrogen 22 mg/dL (7-17); Calcium 9.6 mg/dL (8.4-10.2); Carbon Dioxide 23 mmol/L (22-30); Chloride 96 mmol/L (98-107); Estimated CRCL calculation 38 ml/min; Estimated Glomerular Filt Rate 38; Glucose 143 mg/dL (65-105); Magnesium 1.9 mg/dL (1.6-2.3); Potassium 4.7 mmol/L (3.4-5.0); Sodium 129 mmol/L (137-145)
[2020-02-15 08:13] LABS: Glucose Point of Care 134 (65-105)
--- NOTE | 2020-02-15 08:37 | PM.DS ---
DS: Diagnosis Admitting Diagnosis Admitting Diagnosis: Syncope and collapse Discharge Diagnosis (1) Syncope and collapse: Code(s): R55 - Syncope and collapse Status: Acute Assessment and Plan: -----likely due to orthostatic hypotension. She has been given Galo hose, fluids, and her medications have been adjusted which has resolved her symptoms and her blood pressure. She was significantly orthostatic blood but has not had any documented orthostasis in the last 2 days. Her sodium is better at 129 (close to baseline) today. Etiology for her syncope and dizziness may be multifactorial which includes orthostatic hypotension, diuretics, metoprolol and possible episodes of hypoglycemia. Her cortisol is normal, [place]'s disease ruled out. The patient does drink alcohol daily and volume depletion is likely. She was told that she needs to cut out her alcohol and she seems to understand this. It does not appear cardiac since she has presyncopal episodes and her echo is clear. Telemetry has not had any arrhythmias as well and has been discontinued. She understands that she needs to get her glucose checked every time this happens to her to make sure this is not low glucose as well. A1c back in August was 4.9 and she is on Lantus at home with 5 units of insulin with meals. Insulin changed at discharge. Her metoprolol has also been discontinued CT brain shows chronic small vessel changes, moderate atrophy with no acute intracranial findings. Carotid Dopplers show 50-69% stenosis. I do not think this is enough to cause her dizziness but is certainly not helping when her blood pressure drops. Aspirin and atorvastatin have been started. She will need to follow-up with this closely outpatient. (2) Hyponatremia: Code(s): E87.1 - Hypo-osmolality and hyponatremia Status: Acute Assessment and Plan: -----129 today. I believe this may be actually hypovolemia which was worsened with diuretics. (3) Acute renal failure: Qualifiers: Acute renal failure type: unspecified Qualified Code(s): N17.9 - Acute kidney failure, unspecified Code(s): N17.9 - Acute kidney failure, unspecified Status: Acute Assessment and Plan: -----I believe this is probably her baseline. She has underlying diabetes which can affect kidneys. UA negative for infection. (4) Nausea & vomiting: Qualifiers: Vomiting type: unspecified Vomiting Intractability: non-intractable Qualified Code(s): R11.2 - Nausea with vomiting, unspecified Code(s): R11.2 - Nausea with vomiting, unspecified Status: Acute Assessment and Plan: -----resolved. (5) Diarrhea: Qualifiers: Diarrhea type: unspecified type Qualified Code(s): R19.7 - Diarrhea, unspecified Code(s): R19.7 - Diarrhea, unspecified Status: Acute Assessment and Plan: -----resolved (6) Leukocytosis: Qualifiers: Leukocytosis type: unspecified Qualified Code(s): D72.829 - Elevated white blood cell count, unspecified Code(s): D72.829 - Elevated white blood cell count, unspecified Status: Acute Assessment and Plan: -----likely reactive. No infection suspected. Within normal limits today. (7) Ascites: Qualifiers: Ascites type: due to alcoholic cirrhosis Qualified Code(s): K70.31 - Alcoholic cirrhosis of liver with ascites Code(s): R18.8 - Other ascites Status: Chronic Assessment and Plan: ------Patient notes she has not required paracentesis in about 10 years. She is not having any troubles with this. (8) Chronic anemia: Code(s): D64.9 - Anemia, unspecified Status: Chronic Assessment and Plan: -----Chronic based on review of previous labs. May be secondary to alcoholism. No evidence of acute bleeding. (9) GERD (gastroesophageal reflux disease): Qualifie
[2020-02-15] MEDS: FOLIC ACID 1 MG TABLET PO (09:23)
[2020-02-15] MEDS: EUCERIN CREAM 120 GM JAR 1 APPLIC TOPICAL (09:23)
[2020-02-15] MEDS: MAGNESIUM OXIDE 200 MG TABLET PO (09:23)
[2020-02-15] MEDS: ATORVASTATIN 10 MG TABLET PO (09:23)
[2020-02-15] MEDS: PANTOPRAZOLE 40 MG TABLET PO (09:24)
[2020-02-15] MEDS: polyethylene glycoL 3350 17 GM POWD.PACK PO (09:25)
[2020-02-15] MEDS: IBUPROFEN 200 MG TABLET 400 MG PO (09:26)
[2020-02-15 10:00] VITALS: BP 136/60; PULSE 96; RESP 20; TEMP 36.1; O2SAT 100
--- NOTE | 2020-02-15 10:36 | P.PNNP_ITS ---
Progress Note: A&P Assessment and Plan (1) Acute renal failure: Qualifiers: Acute renal failure type: unspecified Qualified Code(s): N17.9 - Acute kidney failure, unspecified Code(s): N17.9 - Acute kidney failure, unspecified Status: Acute Assessment and Plan: * resolved * due to volume depletion/dehydration (nausea + vomiting + diarrhea) - urine lytes c/w pre-renal azotemia * other risk factors include NSAID, ARB, spironolactone use as well as underlying liver disease * creatinine relatively stable - baseline creatinine ~ 1.0 - 1.5mg/dl although more recently (Jul 2019) it was 1.3 - 1.5mg/dl * renal ultrasound noted * follow repeat labs and UOP (2) Hyponatremia: Code(s): E87.1 - Hypo-osmolality and hyponatremia Status: Acute Assessment and Plan: * acute on chronic * baseline sodium runs ~ 126 - 132 from review of records * slow improvement noted since admission * suspect more related to hypovolemia given improvement with IVFs - follow-up on pending testing * stable at this time * follow trend of repeat sodium levels (3) Syncope and collapse: Code(s): R55 - Syncope and collapse Status: Acute Assessment and Plan: * related to #1 or #2 or something else? * appears more of a chronic issue at baseline * improvement noted with IVFs and correction of sodium * follow symptoms (4) Nausea, vomiting and diarrhea: Code(s): R11.2 - Nausea with vomiting, unspecified; R19.7 - Diarrhea, unspecified Status: Acute Assessment and Plan: * significant improvement * continue supportive therapy (5) Periprosthetic fracture around internal prosthetic right hip joint: Qualifiers: Encounter type: initial encounter Qualified Code(s): M97.01XA - Periprosthetic fracture around internal prosthetic right hip joint, initial encounter Code(s): M97.01XA - Periprosthetic fracture around internal prosthetic right hip joint, initial encounter Status: Acute Assessment and Plan: * Orthopedics following with recommendations noted * continue conservative therapy * transfer to [facility] for further PT/OT (6) Alcoholic cirrhosis of liver with ascites: Code(s): K70.31 - Alcoholic cirrhosis of liver with ascites Status: Acute Assessment and Plan: * chronic issue * spironolactone on hold Will continue to follow. Subjective Date/time seen: 02/15/20 10:36 Continues to feel well and make steady improvement since admission; no dizziness, lightheadedness, nausea, vomiting...etc; no events overnight or earlier this AM; noted plans for discharge to [facility]. Exam Narrative: Exam Narrative: General: WD/WN female in NAD Heart: normal S1 and S2; no rub Lungs: clear to auscultation Abdomen: soft, nontender, + ascites positive bowel sounds Extremities: no cyanosis or clubbing; trace edema Skin: warm and intact Objective Data Vital Signs Vital Signs: Vital Signs Temp Pulse Resp BP Pulse Ox 02/15/20 10:00 36.1 C L 96 20 136/60 100 02/15/20 04:00 36.6 C 93 20 149/72 H 100 02/15/20 00:00 36.1 C L 90 20 142/68 H 100 02/14/20 20:00 36.4 C L 95 20 160/83 H 100 02/14/20 18:00 36.2 C L 106 H 18 149/71 H 100 02/14/20 14:00 36.3 C L 100 18 157/73 H 100 Intake/Output Intake/Output: Intake & Output
--- NOTE | 2020-02-15 10:36 | PM.PNNEP ---
Progress Note: A&P Assessment and Plan (1) Acute renal failure: Qualifiers: Acute renal failure type: unspecified Qualified Code(s): N17.9 - Acute kidney failure, unspecified Code(s): N17.9 - Acute kidney failure, unspecified Status: Acute Assessment and Plan: resolved due to volume depletion/dehydration (nausea + vomiting + diarrhea) - urine lytes c/w pre-renal azotemia other risk factors include NSAID, ARB, spironolactone use as well as underlying liver disease creatinine relatively stable - baseline creatinine ~ 1.0 - 1.5mg/dl although more recently (Jul 2019) it was 1.3 - 1.5mg/dl renal ultrasound noted follow repeat labs and UOP (2) Hyponatremia: Code(s): E87.1 - Hypo-osmolality and hyponatremia Status: Acute Assessment and Plan: acute on chronic baseline sodium runs ~ 126 - 132 from review of records slow improvement noted since admission suspect more related to hypovolemia given improvement with IVFs - follow-up on pending testing stable at this time follow trend of repeat sodium levels (3) Syncope and collapse: Code(s): R55 - Syncope and collapse Status: Acute Assessment and Plan: related to #1 or #2 or something else? appears more of a chronic issue at baseline improvement noted with IVFs and correction of sodium follow symptoms (4) Nausea, vomiting and diarrhea: Code(s): R11.2 - Nausea with vomiting, unspecified; R19.7 - Diarrhea, unspecified Status: Acute Assessment and Plan: significant improvement continue supportive therapy (5) Periprosthetic fracture around internal prosthetic right hip joint: Qualifiers: Encounter type: initial encounter Qualified Code(s): M97.01XA - Periprosthetic fracture around internal prosthetic right hip joint, initial encounter Code(s): M97.01XA - Periprosthetic fracture around internal prosthetic right hip joint, initial encounter Status: Acute Assessment and Plan: Orthopedics following with recommendations noted continue conservative therapy transfer to [facility] for further PT/OT (6) Alcoholic cirrhosis of liver with ascites: Code(s): K70.31 - Alcoholic cirrhosis of liver with ascites Status: Acute Assessment and Plan: chronic issue spironolactone on hold Will continue to follow. Subjective Date/time seen: 02/15/20 10:36 Continues to feel well and make steady improvement since admission; no dizziness, lightheadedness, nausea, vomiting...etc; no events overnight or earlier this AM; noted plans for discharge to [facility]. Exam Narrative: Exam Narrative: General: WD/WN female in NAD Heart: normal S1 and S2; no rub Lungs: clear to auscultation Abdomen: soft, nontender, + ascites positive bowel sounds Extremities: no cyanosis or clubbing; trace edema Skin: warm and intact Objective Data Vital Signs Vital Signs: Vital Signs Temp Pulse Resp BP Pulse Ox 02/15/20 10:00 36.1 C L 96 20 136/60 100 02/15/20 04:00 36.6 C 93 20 149/72 H 100 02/15/20 00:00 36.1 C L 90 20 142/68 H 100 02/14/20 20:00 36.4 C L 95 20 160/83 H 100 02/14/20 18:00 36.2 C L 106 H 18 149/71 H 100 02/14/20 14:00 36.3 C L 100 18 157/73 H 100 Intake/Output Intake/Output: Intake & Output 02/12/20 02/13/20 02/14/20 02/15/20 23:59 23:59 23:59 23:59 Intake Total 825 1795 1400 490 Output Total 650 1125 2175 1500 Balance 175 795 -512 -1010 Meds/Results Medications: Active Medications Generic Name Dose Route Start Last Admin Trade Name Freq PRN Reason Stop Dose Admin Acetaminophen 325 mg 02/13/20 08:45 02/15/20 05:46 Tylenol Tablet PO 325 mg Q6HR NEIL Administration Atorvastatin Calcium 10 mg 02/11/20 09:00 02/15/20 09:23 Lipitor PO 10 mg DAILY NEIL Administration Cyclobenzaprine HCl 5 mg 02/14/20 15:59 02/15/20 04:52 Flexeril PO 5 mg Q8
[2020-02-15] MEDS: INSULIN ASPART (*BKC) 100 UNITS/ML SUB-Q (11:21)
[2020-02-15 11:42] LABS: Glucose Point of Care 228 (65-105)
== END 2020-02-15 12:55 | DRG 312 ==
LOC: ANHED 17:01 → ANH2MED 17:12
PROVIDERS: Family Medicine; Internal Medicine Nephrology; Physician Assistant; Admitting Provider Internal Medicine; Emergency Provider Emergency Medicine; PCP Internal Medicine; Visit Provider Internal Medicine
DX: I95.1 Orthostatic hypotension (principal); E87.1 Hypo-osmolality and hyponatremia; N17.9 Acute kidney failure, unspecified; M97.01XA Periprosthetic fracture around internal prosthetic right hip joint, initial encounter; W19.XXXA Unspecified fall, initial encounter; R11.2 Nausea with vomiting, unspecified; R19.7 Diarrhea, unspecified; D72.829 Elevated white blood cell count, unspecified; K70.31 Alcoholic cirrhosis of liver with ascites; F10.20 Alcohol dependence, uncomplicated; D63.8 Anemia in other chronic diseases classified elsewhere; K21.9 Gastro-esophageal reflux disease without esophagitis; I10 Essential (primary) hypertension; E11.9 Type 2 diabetes mellitus without complications; Z96.641 Presence of right artificial hip joint; Z87.891 Personal history of nicotine dependence; Z79.4 Long term (current) use of insulin
CPT/HCPCS: 36415; 70450; 71045; 73502; 73700; 76775; 80048; 80053; 80061; 80307; 81001; 81050; 82533; 82570; 82607; 82746; 83036; 83735; 83874; 83880; 83930; 84100; 84155; 84156; 84165; 84166; 84295; 84300; 84443; 84484; 85025; 85027; 85055; 85610; 85730; 85999; 93005; 93306; 93880; 96361; 96374; 96375; 97110; 97116; 97162; 97165; 97530; 97535; 99285; A9270; G0378; J0131; J1815; J2270; J2405; J3475; J7030; J7050

== ENCOUNTER 2020-02-15 13:00 | IRF | payer OTHER, SELFPAY ==
--- NOTE | ~2020-02-15 | XR_ITS ---
EXAMINATION: XR hip RT 2V w AP pelvis DATE: 02/28/2020 07:57 INDICATION: Fracture of proximal right femur. TECHNIQUE: An anteroposterior view of the pelvis and 3 views of right hip were obtained. COMPARISON: Pelvis and right hip radiographs 02/24/2020 FINDINGS: There is a total right hip arthroplasty. No periprosthetic lucency to suggest loosening or infection. There is a comminuted intertrochanteric and subtrochanteric fracture of proximal right fem ur. The main distal fracture fragment demonstrates near-anatomic alignment. Periosteal new bone forma tion is noted. There is mild left hip osteoarthritis. There is lumbar dextrocurvature and severe spon dylosis. IMPRESSION: 1. Healing comminuted periprosthetic fracture of proximal right femur. Reviewed, dictated and finalized at location A.
--- NOTE | ~2020-02-15 | XR_ITS ---
EXAMINATION: XR hip RT 2V w AP pelvis DATE: 02/24/2020 06:33 INDICATION: Proximal right femur fracture. TECHNIQUE: An anteroposterior view of the pelvis and 2 views of right hip were obtained. COMPARISON: Right hip CT 02/12/2020, radiographs 02/19/2020 FINDINGS: There is dextrocurvature and severe spondylosis of lumbar spine. There is a comminuted inte rtrochanteric and subtrochanteric fracture of proximal right femur. The main distal fracture fragment demonstrates near-anatomic alignment. Periosteal new bone formation is noted. There is a total right hip arthroplasty in near-anatomic alignment. There is mild left hip osteoarthritis. IMPRESSION: 1. Healing comminuted periprosthetic fracture of proximal right femur. Reviewed, dictated and finalized at location A.
--- NOTE | ~2020-02-15 | XR_ITS ---
EXAMINATION: XR hip RT 2V w AP pelvis EXAM DATE: 02/19/2020 14:48 INDICATION: Fracture follow-up. TECHNIQUE: Right hip frontal, crosstable lateral projections for interpretation. Frontal projection p milvia. Correlation is made to CT right hip 02/12/2020. FINDINGS: There is intact right hip arthroplasty. There is right hip periprosthetic intertrochanteric comminuted fracture, may have slight shift in position, development of mild displacement of several fragments compared to CT scan. Old pubic symphysis fractures. IMPRESSION: Comminuted right hip periprosthetic intertrochanteric fractures, now with mild displaceme nt. Reviewed, dictated and finalized at location A. IMPRESSION: Comminuted right hip periprosthetic intertrochanteric fractures, no w with mild displacement.
[2020-02-15 13:00] VITALS: BP 159/75; PULSE 95; RESP 18; TEMP 36.5; O2SAT 100; BMI 26.8
--- NOTE | 2020-02-15 13:30 | ADMGEN ---
This patient, Lou Ilsas, was admitted to [facility] Room 222-01. Patient/family oriented to hospital policies and general routines including ID bracelet, bed and alarms, visiting hours, pain management, procedures, bathroom and other care routines, personal items, smoking policy, room service/diet, and visiting hours. Valuables list has been completed. Information on how to activate the Rapid Response Team has been discussed. Patient/Family are encouraged to report perceived risks to care and to ask questions if they do not understand what they are told or what they should do.
[2020-02-15] MEDS: CYCLOBENZAPRINE HCL 5 MG TABLET PO ×2 (16:07→21:53)
[2020-02-15] MEDS: IBUPROFEN 400 MG TABLET PO (16:08)
[2020-02-15] MEDS: INSULIN ASPART (*BKC) 100 UNITS/ML SUB-Q (16:12)
[2020-02-15 17:04] LABS: Glucose Point of Care 151 (65-105)
--- NOTE | 2020-02-15 17:57 | WPDREHABHP ---
H&P: HPI History of Present Illness Chief complaint: r periprosthetic femur fx Narrative: Lou Islas is a 64 year old female HISTORY OF PRESENT ILLNESS: The patient's primary rehab impairment category is orthopedic-lower extremity fracture The etiologic diagnosis is nondisplaced comminuted periprosthetic fracture of proximal right femur I saw this patient [id number] on February 15, 2020 The patient is a 64-year-old right-handed white woman with a known history of alcoholic liver disease who presented to [facility] on February 09, 2020 after suffering a possible syncopal event at home. She has been experiencing nausea vomiting diarrhea and dizziness for the previous 4 days prior to admission. She admitted that she has not been eating much but does continue to drink alcohol. The patient reported sitting on the toilet and when she got up she became dizzy and believed she might have passed out for movement. She fell and landed on her right hip. Hip and pelvis x-ray were negative for any fracture. The workup and evaluation in the emergency room demonstrated the patient to be hemodynamically stable. Routine blood test did demonstrate significant hyponatremia with sodium level of 119 as well as what appeared to be acute renal failure with her creatinine above her baseline. Echocardiogram demonstrated an ejection fraction of 70% renal ultrasound was negative for any acute abnormality. Nephrology was consulted and place the patient on a fluid restriction. Carotid Doppler demonstrated 50 to 69% stenosis of the left and right internal carotid arteries. Aspirin and atorvastatin were started. Urinalysis negative. The hip CT on 02/11 demonstrated a nondisplaced comminuted periprosthetic fracture of proximal right femur. Orthopedics however consulted and recommended nonsurgical treatment with toe-touch weight-bearing to the right leg. The patient is alert well oriented time place % however demonstrate significant amount of the pain which is better orthostatic hypertension impaired balance and decreased strength and endurance. The patient will require monitoring and treatment changes per the diabetes mellitus on the acute rehab. The patient is discharged to us on Tylenol ibuprofen which needs to be changed to tramadol as she is allergic to codeine Therapy was initiated at the acute care facility and the patient transferred to us from [facility] on February 15, 2020 on FALLS OR SURGERIES: The patient has had major surgeries in the 100 days prior to admission. They had falls in the past year. They had falls with injury in the past year. PAST MEDICAL HISTORY: alcoholic liver disease, diabetes mellitus type 2 with peripheral neuropathy GERD, hypertension, former smoker PAST SURGICAL HISTORY: right hip replacement SOCIAL HISTORY: patient lives alone in a 1 story home with the finished basement and 2 large steps to enter. She can't stay on main floor. Patient used a cane p.r.n. when she had back pain. She was totally independent prior with all the activities of daily living and in the visual activities of daily living she enjoyed a posting back family did nurse. She has support from mother and sister after rehab. FAMILY HISTORY: Father with heart attack mother with hypertension diabetes mellitus type 2 and COPD PRIOR LEVEL OF FUNCTION: Eating was INDEPENDENT Oral Care was INDEPENDENT Toileting Hygiene was INDEPENDENT Shower/Bathing was INDEPENDENT Upper Body Dressing was INDEPENDENT Lower Body Dressing was INDEPENDENT Donning/[place] Footwear was INDEPENDENT Rolling Left and Right was INDEPENDENT Sit to Lying was INDEPENDENT Lying to Sitting was INDEPENDENT Sit to Stand was INDEPENDENT Bed to Chair Transfers was INDEPENDENT Toilet Transfers was INDEPENDENT Walking was INDEPENDENT >500 feet with NO DEVICE Wheelchair Mobility was NOT APPLICABLE PRIOR TO ADMISSION Stairs were INDEPENDENT CURRENT LEVEL OF FUNCTION:
[2020-02-15] MEDS: TRAMADOL HCL 50 MG TABLET PO ×2 (18:03→22:39)
[2020-02-15 21:47] LABS: Glucose Point of Care 169 (65-105)
[2020-02-15] MEDS: MAGNESIUM OXIDE 200 MG TABLET PO (21:48)
[2020-02-15 22:00] VITALS: BP 186/78; PULSE 102; RESP 19; TEMP 37.1; O2SAT 99
[2020-02-16] MEDS: TRAMADOL HCL 50 MG TABLET PO ×4 (03:00→20:16)
[2020-02-16 04:51] LABS: Basophils Percent Auto 0.6 % (0.2-1.2); Eosinophils Absolute Auto 0.6 K/mm3 (0-0.3); Eosinophils Percent Auto 9.8 % (0-4.4); Hematocrit 25.6 % (37.0-47.0); Hemoglobin 8.7 g/dL (12.0-15.0); Immature Granulocyte Absolute 0.07 K/mm3 (0.00-0.031); Immature Granulocyte Percent A 1.1 % (0-0.5); Lymphocytes Percent Auto 18.4 % (18.3-44.2); Mean Corpuscular Hemoglobin 32.2 pg (26-34); Mean Corpuscular Volume 94.8 fl (80-100); Mean Platelet Volume 10.2 fl (7.4-10.4); Monocytes Absolute Auto 0.8 K/mm3 (0.1-0.6); Monocytes Percent Auto 12.6 % (2.6-8.5); Neutrophils Absolute Auto 3.8 K/mm3 (1.3-6.7); Neutrophils Percent Auto 57.5 % (45.5-73.1); Platelet Count Result 190 k/mm3 (150-375); Red Cell Distribution Width 11.9 % (11.5-14.5); White Blood Count 6.5 K/mm3 (4.5-10.0)
[2020-02-16 05:04] LABS: Blood Urea Nitrogen 22 mg/dL (7-17); Calcium 9.3 mg/dL (8.4-10.2); Carbon Dioxide 23 mmol/L (22-30); Chloride 95 mmol/L (98-107); Estimated CRCL calculation 36 ml/min; Estimated Glomerular Filt Rate 41; Glucose 152 mg/dL (65-105); Potassium 4.7 mmol/L (3.4-5.0); Sodium 126 mmol/L (137-145)
[2020-02-16 06:00] VITALS: BP 141/77; PULSE 91; RESP 18; TEMP 36.4; O2SAT 100
[2020-02-16 06:39] LABS: Glucose Point of Care 140 (65-105)
[2020-02-16 08:00] VITALS: PULSE 100; RESP 18
[2020-02-16] MEDS: INSULIN ASPART (*BKC) 100 UNITS/ML SUB-Q ×3 (08:04→18:36)
[2020-02-16] MEDS: MAGNESIUM OXIDE 200 MG TABLET PO ×2 (08:06→20:19)
[2020-02-16] MEDS: PANTOPRAZOLE 40 MG TABLET PO (08:06)
[2020-02-16] MEDS: CYCLOBENZAPRINE HCL 5 MG TABLET PO ×2 (08:07→18:36)
[2020-02-16] MEDS: ASPIRIN 81 MG ENTERIC TABLET PO (11:16)
[2020-02-16] MEDS: FOLIC ACID 1 MG TABLET PO (11:16)
[2020-02-16] MEDS: ATORVASTATIN 10 MG TABLET PO (11:17)
[2020-02-16] MEDS: LOSARTAN POTASSIUM 50 MG TABLET PO (11:17)
[2020-02-16 12:15] LABS: Glucose Point of Care 152 (65-105)
[2020-02-16 13:59] VITALS: BP 102/60; PULSE 106; RESP 18; TEMP 36; O2SAT 100
[2020-02-16 16:52] LABS: Glucose Point of Care 166 (65-105)
[2020-02-16] MEDS: ONDANSETRON HCL ODT 4 MG TABLET PO (20:23)
[2020-02-16 21:55] VITALS: BP 106/74; PULSE 99; RESP 16; TEMP 36.2; O2SAT 100
[2020-02-16 23:14] LABS: Glucose Point of Care 119 (65-105)
[2020-02-17 06:00] VITALS: BP 118/63; PULSE 112; RESP 16; TEMP 36.4; O2SAT 100
[2020-02-17] MEDS: ONDANSETRON HCL ODT 4 MG TABLET PO (06:52)
[2020-02-17 07:08] LABS: Glucose Point of Care 153 (65-105)
[2020-02-17] MEDS: INSULIN ASPART (*BKC) 100 UNITS/ML SUB-Q ×3 (07:20→17:52)
[2020-02-17] MEDS: ATORVASTATIN 10 MG TABLET PO (10:47)
[2020-02-17] MEDS: LOSARTAN POTASSIUM 50 MG TABLET PO (10:47)
[2020-02-17] MEDS: ASPIRIN 81 MG ENTERIC TABLET PO (10:47)
[2020-02-17] MEDS: MAGNESIUM OXIDE 200 MG TABLET PO ×2 (10:47→20:36)
[2020-02-17] MEDS: FOLIC ACID 1 MG TABLET PO (10:47)
[2020-02-17] MEDS: PANTOPRAZOLE 40 MG TABLET PO (10:48)
[2020-02-17 12:46] LABS: Glucose Point of Care 146 (65-105)
[2020-02-17 13:00] VITALS: BMI 26.8
[2020-02-17 14:00] VITALS: BP 108/51; PULSE 107; RESP 18; TEMP 36.4; O2SAT 100
[2020-02-17 14:36] VITALS: BP 79/47; PULSE 108
--- NOTE | 2020-02-17 15:07 | RPD ---
INDIVIDUALIZED PLAN OF CARE FOR Lou Islas Brief Synthesis of Pre-Admission Screen, Post-Admission Evaluation and Therapy Evaluations: The patient presents to rehab with non-displaced comminuted periprosthetic fracture of proximal right femur. Comorbidities include Hyponatremia, anemia, hip pain, lower extremity edema, diabetes mellitus with diabetic peripheral angiopathy, s/p ground level fall, CHF, HTN, diarrhea, acute renal failure, alcoholism, ascites, nausea, dehydration, alcoholic cirrhosis, acute renal failure, GERD, acute renal failure, HTN, L2 fracture of undetermined age, orthostatic hypotension. The patient requires physician services for medical oversight, management of postop complications in setting of present comorbidities, and pain management. The patient requires nursing services for DVT prophylactics, infection protection, medication management and education, pressure relief, and wound care. 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 Treatments may include: Therapeutic Exercise, Gait Training, Neuromuscular Re-education, Transfer Training, Community Reintegration, Bed Mobility, Patient/Family Education, Wheelchair Mobility Group Therapy/Concurrent Therapy Rationales: -Improve attention span during functional activities in a distracted environment. -Enhance problem solving and/or adequate judgment skills during functional activities in a distracted environment. -Promote increased safety awareness in a distracted environment to reduce fall risk with functional tasks, transfers, and ambulation to allow a more safe, self-sufficient return to the home environment. -Improve dynamic balance skills to promote safety and independence with functional activities in a distracted environment for maximum gain. Occupational Therapy: 5 days per week for 90 minutes. Treatments may include: Therapeutic Exercise, Therapeutic Activity, Cognitive Training, Self-Care Transfer Training, Community Reintegration, Home Management, Patient/Family Education, Wheelchair Mobility Training, Energy Conservation Training Group Therapy/Concurrent Therapy Rationales: -Allow therapist to observe and teach generalization and carry-over of skills learned in individual therapy. -Enhance problem solving and sequencing skills during therapeutic activities in a distracted environment. -Promote increased safety awareness in a realistic setting to reduce fall risk with functional tasks due to visual and verbal distractions. -Increase functional level with ADLs, ADL transfers and use of adaptive equipment through therapeutic activities with others while promoting safety to allow a more safe, self-sufficient return home. Medical Prognosis: Good Anticipated Length of Stay: 15 days Rehab Goals: Eating Goal: 06-Independent Oral Hygiene Goal: 06-Independent Toileting Hygiene Goal: 06-Independent Shower/Bathe Self Goal: 06-Independent Upper Body Dressing Goal: 06-Independent Lower Body Dressing Goal: 06-Independent Putting On/Taking Off Footwear Goal: 06-Independent Rolling Left and Right Goal: 06-Independent Sit to Lying Goal: 06-Independent Lying to Sitting on Side of Bed Goal: 06-Independent Sit to Stand Goal: 06-Independent Chair/Sgf-jx-[place] Transfer Goal: 06-Independent Toilet Transfer Goal: 06-Independent Car Transfer Goal: 04-Supervision or Touching Assistance Walk 10' Goal: 06-Independent Walk 50' with Two Turns Goal: 06-Independent Walk 150' Goal: 06-Independent Walk 10' on Uneven Surface Goal: 04-Supervision or Touching Assistance 1 Step (Curb) Goal: 03-Partial/Moderate Assistance 4 Steps Goal: 03-Partial/Moderate Assistance 12 Steps Goal Score: 03-Partial/Moderate Assistance Picking Up Object Goal: 06-Independent Wheel 50' with Two Turns S
[2020-02-17 17:29] LABS: Glucose Point of Care 144 (65-105)
[2020-02-17 22:00] VITALS: BP 108/58; PULSE 101; RESP 18; TEMP 36.6; O2SAT 100
[2020-02-18 06:00] VITALS: BP 112/52; PULSE 99; RESP 18; TEMP 36.8; O2SAT 100
[2020-02-18 06:20] LABS: Glucose Point of Care 130 (65-105)
[2020-02-18] MEDS: CYCLOBENZAPRINE HCL 5 MG TABLET PO (07:51)
[2020-02-18] MEDS: TRAMADOL HCL 50 MG TABLET PO ×2 (07:52→20:36)
[2020-02-18] MEDS: INSULIN ASPART (*BKC) 100 UNITS/ML SUB-Q ×3 (07:53→18:05)
[2020-02-18] MEDS: ASPIRIN 81 MG ENTERIC TABLET PO (07:54)
[2020-02-18] MEDS: MAGNESIUM OXIDE 200 MG TABLET PO ×2 (07:55→20:38)
[2020-02-18] MEDS: LOSARTAN POTASSIUM 50 MG TABLET PO (07:55)
[2020-02-18] MEDS: ATORVASTATIN 10 MG TABLET PO (07:55)
[2020-02-18] MEDS: FOLIC ACID 1 MG TABLET PO (07:55)
[2020-02-18] MEDS: PANTOPRAZOLE 40 MG TABLET PO (07:56)
[2020-02-18 10:57] VITALS: BP 105/47; PULSE 96; O2SAT 100
[2020-02-18 12:40] LABS: Glucose Point of Care 154 (65-105)
[2020-02-18] MEDS: MENTHOL 10% / METHYL SALICYLATE 15% 57 GM TUBE 1 APPLIC TOPICAL (12:50)
[2020-02-18] MEDS: CALCIUM CARBONATE (TUMS) 500 MG (200 MG ELEMENTAL) PO (12:50)
--- NOTE | 2020-02-18 12:59 | WPDNEURORHBP ---
Subjective Date/time seen: 02/18/20 12:59 Interval history: this 64-year-old woman who is alcoholic comes to us after having had right periprosthetic femur fracture she is toe-touch weight-bearing doing fairly well except complaining of dizziness lightheadedness which is most likely related to orthostasis and due to peripheral neuropathy combined with diabetes and alcoholism I discussed with her she denies any headache nausea vomiting chest pain or shortness of breath Review of Systems Review of Systems: All systems reviewed & are unremarkable except as noted in HPI and below Functional Status Ambulation Ability Ability to Ambulate 10 Feet: Minimum Assistance X 1 Ability to Ambulate 50 Feet With 2 Turns: Minimum Assistance X 1 Ambulation Assistive Devices: Walker, Wheeled Transfers Ability Ability to Transfer In/Out of Chair: Minimum Assistance X 1 Exam Const: General: comfortable and no acute distress HENMT: General nose exam: Normal nares present Mouth: Yes moist mucous membranes Eyes: General: appearance normal, both eyes and all related structures Neck: Neck: supple and no JVD Resp: Effort & Inspection: normal respiratory effort Auscultation: clear to auscultation bilaterally Cardio: Rate: regular rate Rhythm: regular rhythm GI: GI Palp: Yes Soft to palpation Auscultation: normal bowel sounds Skin: General skin exam: normal color and no rashes or lesions noted Neuro: Other: patient's mental status examination normal cranial examination is normal due to weight-bearing destruction a of the right lower extremity she has handicapped beside having had peripheral neuropathy due to combination of diabetes mellitus and chronic alcoholism Extrem: Other: limitation of the range of movement and restriction of the right lower extremity due to periprosthetic fracture of the right hip Psych: Mental Status: mental status grossly normal Objective Data Vital Signs Vital Signs: Vital Signs - 24 hr 02/17/20 14:00 02/17/20 14:36 02/17/20 22:00 Temperature 36.4 C 36.6 C Pulse Rate 107 H 108 H 101 H Respiratory Rate 18 18 Blood Pressure 108/51 L 79/47 L 108/58 L Pulse Oximetry 100 100 02/18/20 06:00 02/18/20 10:57 Temperature 36.8 C Pulse Rate 99 96 Respiratory Rate 18 Blood Pressure 112/52 L 105/47 L Pulse Oximetry 100 100 Intake/Output Intake/Output: Intake & Output 05/0202/16/20 02/17/20 02/18/20 23:59 23:59 23:59 23:59 Intake Total 240 720 560 480 Balance 240 720 560 480 Meds/Results Medications: Active Medications Generic Name Dose Route Start Last Admin Trade Name Freq PRN Reason Stop Dose Admin Aspirin 81 mg 02/16/20 09:00 02/18/20 07:54 Aspirin Ec PO 81 mg DAILY NEIL Administration Atorvastatin Calcium 10 mg 02/16/20 09:00 02/18/20 07:55 Lipitor PO 10 mg DAILY NEIL Administration Calcium Carbonate 200 mg 02/18/20 12:35 Tums PO Q6H PRN Indigestion Cyclobenzaprine HCl 5 mg 02/15/20 14:12 02/18/20 07:51 Flexeril PO 5 mg Q8H PRN Administration Muscle Spasm Dextrose 12.5 gm 02/15/20 13:44 Dextrose 50% Syringe IV PUSH PRN PRN Hypoglycemia Protocol Diphenhydramine HCl 25 mg 02/15/20 14:12 02/18/20 07:51 Benadryl Cap PO 25 mg BID PRN Administration itching Folic Acid 1 mg 02/16/20 09:00 02/18/20 07:55 Folic Acid PO 1 mg DAILY NEIL Administration Glucagon 1 mg 02/15/20 13:44 Glucagon For Inj IM PRN PRN Hypoglycemia Protocol Glucose 15 gm 02/15/20 13:44 Glutose 15 PO PRN PRN Hypoglycemia Protocol Dextrose 1,000 mls @ 100 mls/hr 02/15/20 13:44 Dextrose 5% 1,000 Ml IVPB PRN PRN Hypoglycemia Protocol Ibuprofen 400 mg 02/15/20 14:12 02/15/20 16:08 Motrin PO 400 mg Q12H PRN Administration pain Insulin Aspart 3 units 02/18/20 08:00 02/18/20 07:53 Novolog SUB-Q 3 units [facility] Administr
[2020-02-18 14:00] VITALS: BP 131/56; PULSE 96; RESP 18; TEMP 36; O2SAT 100
[2020-02-18 18:12] LABS: Glucose Point of Care 171 (65-105)
[2020-02-18 21:10] VITALS: BP 131/60; PULSE 104; RESP 16; TEMP 36.6; O2SAT 100
[2020-02-18 21:28] LABS: Glucose Point of Care 176 (65-105)
[2020-02-19] MEDS: TRAMADOL HCL 50 MG TABLET PO ×2 (02:52→16:45)
[2020-02-19 06:00] VITALS: BP 122/60; PULSE 91; RESP 16; TEMP 36.1; O2SAT 100
[2020-02-19 06:49] LABS: Glucose Point of Care 152 (65-105)
[2020-02-19] MEDS: INSULIN ASPART (*BKC) 100 UNITS/ML SUB-Q ×3 (09:45→17:52)
[2020-02-19] MEDS: PANTOPRAZOLE 40 MG TABLET PO (09:46)
[2020-02-19] MEDS: LOSARTAN POTASSIUM 50 MG TABLET PO (09:46)
[2020-02-19] MEDS: ASPIRIN 81 MG ENTERIC TABLET PO (09:46)
[2020-02-19] MEDS: MAGNESIUM OXIDE 200 MG TABLET PO ×2 (09:46→21:41)
[2020-02-19] MEDS: ATORVASTATIN 10 MG TABLET PO (09:46)
[2020-02-19] MEDS: FOLIC ACID 1 MG TABLET PO (09:46)
[2020-02-19 12:13] LABS: Glucose Point of Care 137 (65-105)
--- NOTE | 2020-02-19 13:27 | WPDNEURORHBP ---
Subjective Date/time seen: 02/19/20 13:27 Interval history: this 64-year-old woman with the liver cirrhosis chronic alcoholism was admitted because of right periprosthetic fracture she refuses to use the SCD which I am concerned because of her underlying medical issues that she might develop blood clots. she denies any headache nausea vomiting chest pain shortness of breath fever chills or sore throat Review of Systems Review of Systems: All systems reviewed & are unremarkable except as noted in HPI and below Functional Status Ambulation Ability Ability to Ambulate 10 Feet: Minimum Assistance X 1 Ability to Ambulate 50 Feet With 2 Turns: Minimum Assistance X 1 Ambulation Assistive Devices: Walker, Wheeled Transfers Ability Ability to Transfer In/Out of Chair: Minimum Assistance X 1 Exam Const: General: comfortable and no acute distress HENMT: General nose exam: Normal nares present Mouth: Yes moist mucous membranes Eyes: General: appearance normal, both eyes and all related structures Neck: Neck: supple and no JVD Resp: Effort & Inspection: normal respiratory effort Auscultation: clear to auscultation bilaterally Cardio: Rate: regular rate Rhythm: regular rhythm GI: GI Palp: Yes Soft to palpation Skin: General skin exam: normal color and no rashes or lesions noted Neuro: Other: patient is awake and alert well oriented time place and person is speech language functions are normal cranial examination is normal she is nonweightbearing on the right lower extremity she does have evidence of significant peripheral neuropathy most likely due to combination of chronic alcoholism and diabetes mellitus Extrem: Other: restriction of because of the right periprosthetic fracture otherwise negative Psych: Mental Status: mental status grossly normal Objective Data Vital Signs Vital Signs: Vital Signs - 24 hr 02/18/20 14:00 02/18/20 21:10 02/19/20 06:00 Temperature 36.0 C L 36.6 C 36.1 C L Pulse Rate 96 104 H 91 Respiratory Rate 18 16 16 Blood Pressure 131/56 L 131/60 122/60 Pulse Oximetry 100 100 100 Intake/Output Intake/Output: Intake & Output 02/16/20 02/17/20 02/18/20 02/19/20 23:59 23:59 23:59 23:59 Intake Total 998 517 8172 480 Balance 769 779 7419 480 Meds/Results Medications: Active Medications Generic Name Dose Route Start Last Admin Trade Name Freq PRN Reason Stop Dose Admin Aspirin 81 mg 02/16/20 09:00 02/19/20 09:46 Aspirin Ec PO 81 mg DAILY NEIL Administration Atorvastatin Calcium 10 mg 02/16/20 09:00 02/19/20 09:46 Lipitor PO 10 mg DAILY NEIL Administration Calcium Carbonate 200 mg 02/18/20 12:35 02/18/20 12:50 Tums PO 200 mg Q6H PRN Administration Indigestion Cyclobenzaprine HCl 5 mg 02/15/20 14:12 02/18/20 07:51 Flexeril PO 5 mg Q8H PRN Administration Muscle Spasm Dextrose 12.5 gm 02/15/20 13:44 Dextrose 50% Syringe IV PUSH PRN PRN Hypoglycemia Protocol Diphenhydramine HCl 25 mg 02/15/20 14:12 02/19/20 10:17 Benadryl Cap PO 25 mg BID PRN Administration itching Folic Acid 1 mg 02/16/20 09:00 02/19/20 09:46 Folic Acid PO 1 mg DAILY NEIL Administration Glucagon 1 mg 02/15/20 13:44 Glucagon For Inj IM PRN PRN Hypoglycemia Protocol Glucose 15 gm 02/15/20 13:44 Glutose 15 PO PRN PRN Hypoglycemia Protocol Dextrose 1,000 mls @ 100 mls/hr 02/15/20 13:44 Dextrose 5% 1,000 Ml IVPB PRN PRN Hypoglycemia Protocol Ibuprofen 400 mg 02/15/20 14:12 02/15/20 16:08 Motrin PO 400 mg Q12H PRN Administration pain Insulin Aspart 3 units 02/18/20 08:00 02/19/20 13:09 Novolog SUB-Q 3 units [facility] NEIL Administration Losartan Potassium 50 mg 02/16/20 09:00 02/19/20 09:46 Cozaar PO 50 mg DAILY NEIL Administration Magnesium Oxide 200 mg 02/15/20 21:00 02/19/20 09:46 Mag-Ox PO 200 mg Q12
[2020-02-19 13:30] VITALS: BP 98/40
[2020-02-19 14:00] VITALS: BP 98/40; PULSE 111; RESP 18; TEMP 36.2; O2SAT 99
--- NOTE | 2020-02-19 14:55 | PCPTNOTE ---
The patient treatment was not able to be completed on 02/19/2020 due to per R.N from M.D for patient to be on bed rest. Patient missed 35 minutes of physical therapy session. Will plan to continue treatment per plan of care.
[2020-02-19] MEDS: ENOXAPARIN 30 MG/0.3 ML SYRINGE SUB-Q (16:33)
[2020-02-19 17:12] LABS: Glucose Point of Care 178 (65-105)
[2020-02-19 21:20] LABS: Glucose Point of Care 170 (65-105)
[2020-02-19 22:00] VITALS: BP 101/47; PULSE 103; RESP 18; TEMP 36.3; O2SAT 100
[2020-02-20 06:00] VITALS: BP 111/53; PULSE 94; RESP 16; TEMP 36.5; O2SAT 100
[2020-02-20 06:51] LABS: Glucose Point of Care 149 (65-105)
[2020-02-20] MEDS: CYCLOBENZAPRINE HCL 5 MG TABLET PO ×2 (09:46→21:29)
[2020-02-20] MEDS: INSULIN ASPART (*BKC) 100 UNITS/ML SUB-Q ×3 (09:46→18:00)
[2020-02-20] MEDS: TRAMADOL HCL 50 MG TABLET PO ×2 (09:46→14:20)
[2020-02-20] MEDS: ENOXAPARIN 30 MG/0.3 ML SYRINGE SUB-Q (09:48)
[2020-02-20] MEDS: LOSARTAN POTASSIUM 50 MG TABLET PO (09:49)
[2020-02-20] MEDS: ASPIRIN 81 MG ENTERIC TABLET PO (09:49)
[2020-02-20] MEDS: FOLIC ACID 1 MG TABLET PO (09:49)
[2020-02-20] MEDS: ATORVASTATIN 10 MG TABLET PO (09:49)
[2020-02-20] MEDS: MAGNESIUM OXIDE 200 MG TABLET PO ×2 (09:49→21:23)
[2020-02-20] MEDS: PANTOPRAZOLE 40 MG TABLET PO (09:50)
--- NOTE | 2020-02-20 11:36 | PCDIET ---
Nutrition Follow-Up Complete: No nutrition diagnosis at this time. Nutrition Goal: Patient to consume 75% of meals or greater. Goal met. Patient now consuming 75-100% of meals on diabetic diet which is appropriate. Last recorded weight is 75.4 kg. Recommend obtaining new weight. Bowel Motility: Last BM on 02/19/20, per nursing flowsheet. Labs Reviewed: Glu (149) Meds Noted: Folic Acid, Novolog, Mag-Ox, Protonix Additional Notes: No documented skin breakdown. Will continue to monitor with same goal. Nutrition Monitoring and Evaluation: Follow up every 7 days.
--- NOTE | 2020-02-20 11:50 | PM.PNORT ---
Progress Note: A&P Assessment and Plan (1) Periprosthetic fracture around internal prosthetic right hip joint: Qualifiers: Encounter type: initial encounter Qualified Code(s): M97.01XA - Periprosthetic fracture around internal prosthetic right hip joint, initial encounter Code(s): M97.01XA - Periprosthetic fracture around internal prosthetic right hip joint, initial encounter Status: Acute Assessment and Plan: 64-year-old female with a right proximal femur periprosthetic fracture will re-x-ray this on February 24, 2020. Discussed with the patient the current situation. No change in weight-bearing status and emphasized the need to be compliant with that. Following. Time Spent With Patient Time with patient: 15 - 25 minutes Subjective Subjective Date/Time Seen: 02/20/20 11:50 Principal diagnosis: Right periprosthetic femur fracture Exam Const: General: cooperative, no acute distress and alert Nutritional Appearance: other Orientation/consciousness: patient oriented x3 Limitations: no limitations HENMT: Head: normal to inspection Ears: hearing grossly normal bilaterally Face and sinus: face symmetric Mouth: Yes moist mucous membranes Teeth and gingiva: fair dentition Eyes: Alignment and Position: alignment normal and position normal Sclera: sclerae normal Neck: Neck: normal visual inspection and nontender Chest: Chest palpation & inspection: normal inspection of the chest Resp: Effort & Inspection: normal respiratory effort and able to speak in complete sentences GI: Inspection: other Skin: General skin exam: normal color Rashes: no rashes Neuro: General: patient oriented x3 Cognition (Neuro): normal cognition Speech: normal speech Gait exam (Neuro): Other gait observations present Motor exam (neuro): Other motor observations present (Clinically normal motor function right lower extremity) Sensory Exam: normal sensation Extrem: General: normal to inspection and other Psych: Appearance: grossly normal Mental Status: mental status grossly normal Radiology Reports: Comments: EXAMINATION: XR hip RT 2V w AP pelvis EXAM DATE: 02/19/2020 14:48 INDICATION: Fracture follow-up. TECHNIQUE: Right hip frontal, crosstable lateral projections for interpretation. Frontal projection pelvis. Correlation is made to CT right hip 02/12/2020. FINDINGS: There is intact right hip arthroplasty. There is right hip periprosthetic intertrochanteric comminuted fracture, may have slight shift in position, development of mild displacement of several fragments compared to CT scan. Old pubic symphysis fractures. IMPRESSION: Comminuted right hip periprosthetic intertrochanteric fractures, now with mild displacement. I agree with the assessment. There has been some mild displacement of the proximal femoral pieces however the implant itself is in unchanged position so it appears to still be axially and rotationally stable. Hip and Pelvis X-Ray 02/19/20 Objective Data Vital Signs Vital Signs: Vital Signs - 24 hr 02/19/20 13:30 02/19/20 14:00 02/19/20 22:00 Temperature 97.2 F L 97.4 F L Pulse Rate 111 H 103 H Respiratory Rate 18 18 Blood Pressure 98/40 L 98/40 L 101/47 L Pulse Oximetry 99 100 02/20/20 06:00 Temperature 97.7 F Pulse Rate 94 Respiratory Rate 16 Blood Pressure 111/53 L Pulse Oximetry 100 Intake/Output Intake/Output: Intake & Output 02/17/20 02/18/20 02/19/20 02/20/20 23:59 23:59 23:59 23:59 Intake Total 560 / 560 1200 / 1200 720 / 720 480 / 480 Balance 560 / 560 1200 / 1200 720 / 720 480 / 480 Meds/Results Medications: Active Medications Generic Name Dose Route Start Last Admin Trade Name Freq PRN Reason Stop Dose Admin Aspirin 81 mg 02/16/20 09:00 02/20/20 09:49 Aspirin Ec PO 81 mg DAILY NEIL Administration Atorvastatin Calcium 10 mg 02/16/20 09:00 02/20/20 09:49 Lipitor PO 10 mg DAILY NEIL Administration Calcium Carbon
--- NOTE | 2020-02-20 12:45 | WPDNEURORHBP ---
Subjective Date/time seen: 02/20/20 12:45 Interval history: this 64-year-old woman who has alcoholic cirrhosis chronic alcoholism is here with the periprosthetic fracture and is being treated conservatively with nonweightbearing status ortho status is fluctuating otherwise she denies any headache nausea vomiting chest pain shortness of breath fever chills or sore throat Review of Systems Review of Systems: All systems reviewed & are unremarkable except as noted in HPI and below Functional Status Ambulation Ability Ability to Ambulate 10 Feet: Minimum Assistance X 1 Ability to Ambulate 50 Feet With 2 Turns: Minimum Assistance X 1 Ambulation Assistive Devices: Walker, Wheeled Transfers Ability Ability to Transfer In/Out of Chair: Minimum Assistance X 1 Exam Const: General: comfortable and no acute distress HENMT: General nose exam: Normal nares present Mouth: Yes moist mucous membranes Eyes: General: appearance normal, both eyes and all related structures Neck: Neck: supple and no JVD Resp: Effort & Inspection: normal respiratory effort Auscultation: clear to auscultation bilaterally Cardio: Rate: regular rate Rhythm: regular rhythm GI: GI Palp: Yes Soft to palpation Auscultation: normal bowel sounds Skin: General skin exam: normal color Neuro: Other: patient remains awake alert well oriented time place and person speech and language functions are normal cranial examination is normal she has generalized evidence of peripheral neuropathy with depressed reflexes sensory deficit and of course nonweightbearing status of the right lower extremity Extrem: Other: the site of the fracture is tender and she has limitation for the therapy Psych: Mental Status: mental status grossly normal Objective Data Vital Signs Vital Signs: Vital Signs - 24 hr 02/20/20 14:00 02/20/20 20:00 02/20/20 22:00 Temperature 35.9 C L 36.3 C L Pulse Rate 99 104 H Respiratory Rate 18 18 Blood Pressure 95/45 L 131/67 115/49 L Pulse Oximetry 100 100 02/21/20 06:00 02/21/20 08:00 Temperature 36.1 C L Pulse Rate 97 97 Respiratory Rate 18 18 Blood Pressure 140/57 L Pulse Oximetry 100 100 Intake/Output Intake/Output: Intake & Output 02/18/20 02/19/20 02/20/20 02/21/20 23:59 23:59 23:59 23:59 Intake Total 1200 720 960 240 Balance 1200 720 960 240 Meds/Results Medications: Active Medications Generic Name Dose Route Start Last Admin Trade Name Freq PRN Reason Stop Dose Admin Aspirin 81 mg 02/16/20 09:00 02/21/20 09:43 Aspirin Ec PO 81 mg DAILY NEIL Administration Atorvastatin Calcium 10 mg 02/16/20 09:00 02/21/20 09:45 Lipitor PO 10 mg DAILY NEIL Administration Calcium Carbonate 200 mg 02/18/20 12:35 02/18/20 12:50 Tums PO 200 mg Q6H PRN Administration Indigestion Cyclobenzaprine HCl 5 mg 02/15/20 14:12 02/21/20 09:54 Flexeril PO 5 mg Q8H PRN Administration Muscle Spasm Dextrose 12.5 gm 02/15/20 13:44 Dextrose 50% Syringe IV PUSH PRN PRN Hypoglycemia Protocol Diphenhydramine HCl 25 mg 02/15/20 14:12 02/21/20 09:54 Benadryl Cap PO 25 mg BID PRN Administration itching Enoxaparin Sodium 30 mg 02/19/20 14:00 02/21/20 09:45 Lovenox SUB-Q 30 mg DAILY [facility] Administration Folic Acid 1 mg 02/16/20 09:00 02/21/20 09:45 Folic Acid PO 1 mg DAILY [facility] Administration Glucagon 1 mg 02/15/20 13:44 Glucagon For Inj IM PRN PRN Hypoglycemia Protocol Glucose 15 gm 02/15/20 13:44 Glutose 15 PO PRN PRN Hypoglycemia Protocol Dextrose 1,000 mls @ 100 mls/hr 02/15/20 13:44 Dextrose 5% 1,000 Ml IVPB PRN PRN Hypoglycemia Protocol Ibuprofen 400 mg 02/15/20 14:12 02/20/20 21:28 Motrin PO 400 mg Q12H PRN Administration pain Insulin Aspart 3 units 02/18/20 08:00 02/21/20 09:42 Novolog SUB-Q Not Given TIDWM [facility] Losartan Potas
[2020-02-20 13:42] LABS: Glucose Point of Care 109 (65-105)
[2020-02-20 14:00] VITALS: BP 89/41; BP 95/45; PULSE 99; RESP 18; TEMP 35.9; O2SAT 100
[2020-02-20 17:00] LABS: Glucose Point of Care 173 (65-105)
[2020-02-20 20:00] VITALS: BP 131/67
[2020-02-20] MEDS: IBUPROFEN 400 MG TABLET PO (21:28)
[2020-02-20 21:56] LABS: Glucose Point of Care 166 (65-105)
[2020-02-20 22:00] VITALS: BP 115/49; PULSE 104; RESP 18; TEMP 36.3; O2SAT 100
[2020-02-21 06:00] VITALS: BP 140/57; PULSE 97; RESP 18; TEMP 36.1; O2SAT 100
[2020-02-21 07:04] LABS: Glucose Point of Care 119 (65-105)
[2020-02-21 08:00] VITALS: PULSE 97; RESP 18; O2SAT 100
[2020-02-21] MEDS: LOSARTAN POTASSIUM 50 MG TABLET PO (09:43)
[2020-02-21] MEDS: ASPIRIN 81 MG ENTERIC TABLET PO (09:43)
[2020-02-21] MEDS: ENOXAPARIN 30 MG/0.3 ML SYRINGE SUB-Q (09:45)
[2020-02-21] MEDS: ATORVASTATIN 10 MG TABLET PO (09:45)
[2020-02-21] MEDS: PANTOPRAZOLE 40 MG TABLET PO (09:45)
[2020-02-21] MEDS: MAGNESIUM OXIDE 200 MG TABLET PO ×2 (09:45→20:46)
[2020-02-21] MEDS: FOLIC ACID 1 MG TABLET PO (09:45)
[2020-02-21] MEDS: TRAMADOL HCL 50 MG TABLET PO ×2 (09:51→20:51)
[2020-02-21] MEDS: CYCLOBENZAPRINE HCL 5 MG TABLET PO ×2 (09:54→20:50)
[2020-02-21 11:07] LABS: Glucose Point of Care 165 (65-105)
[2020-02-21 14:00] VITALS: BP 115/52; PULSE 107; RESP 20; TEMP 36.4; O2SAT 100
--- NOTE | 2020-02-21 14:36 | WPDNEURORHBP ---
Subjective Date/time seen: 02/21/20 14:36 Interval history: this 64-year-old woman is here with right periprosthetic fracture of the right hip she remains nonweightbearing on right lower extremity working with therapy but at times has been noncompliant denies any headache nausea vomiting chest pain or shortness of breath fever chills or sore throat Review of Systems Review of Systems: All systems reviewed & are unremarkable except as noted in HPI and below Functional Status Ambulation Ability Ability to Ambulate 10 Feet: Minimum Assistance X 1 Ability to Ambulate 50 Feet With 2 Turns: Minimum Assistance X 1 Ambulation Assistive Devices: Walker, Wheeled Transfers Ability Ability to Transfer In/Out of Chair: Minimum Assistance X 1 Exam Const: General: comfortable and no acute distress HENMT: General nose exam: Normal nares present Mouth: Yes moist mucous membranes Eyes: General: appearance normal, both eyes and all related structures Neck: Neck: supple and no JVD Resp: Effort & Inspection: normal respiratory effort Auscultation: clear to auscultation bilaterally Cardio: Rate: regular rate Rhythm: regular rhythm GI: GI Palp: Yes Soft to palpation Auscultation: normal bowel sounds Skin: General skin exam: normal color and no rashes or lesions noted Neuro: Other: patient remains awake alert well oriented time place and person with normal speech and language function normal cranial examination obviously limited because of nonweightbearing status about the right lower extremity with evidence of peripheral neuropathy which all are stable Extrem: General: normal to inspection Psych: Mental Status: mental status grossly normal Objective Data Vital Signs Vital Signs: Vital Signs - 24 hr 02/20/20 20:00 02/20/20 22:00 02/21/20 06:00 Temperature 36.3 C L 36.1 C L Pulse Rate 104 H 97 Respiratory Rate 18 18 Blood Pressure 131/67 115/49 L 140/57 L Pulse Oximetry 100 100 02/21/20 08:00 Temperature Pulse Rate 97 Respiratory Rate 18 Blood Pressure Pulse Oximetry 100 Intake/Output Intake/Output: Intake & Output 02/18/20 02/19/20 02/20/20 02/21/20 23:59 23:59 23:59 23:59 Intake Total 1200 720 960 240 Balance 1200 720 960 240 Meds/Results Medications: Active Medications Generic Name Dose Route Start Last Admin Trade Name Freq PRN Reason Stop Dose Admin Aspirin 81 mg 02/16/20 09:00 02/21/20 09:43 Aspirin Ec PO 81 mg DAILY NEIL Administration Atorvastatin Calcium 10 mg 02/16/20 09:00 02/21/20 09:45 Lipitor PO 10 mg DAILY NEIL Administration Calcium Carbonate 200 mg 02/18/20 12:35 02/18/20 12:50 Tums PO 200 mg Q6H PRN Administration Indigestion Cyclobenzaprine HCl 5 mg 02/15/20 14:12 02/21/20 09:54 Flexeril PO 5 mg Q8H PRN Administration Muscle Spasm Dextrose 12.5 gm 02/15/20 13:44 Dextrose 50% Syringe IV PUSH PRN PRN Hypoglycemia Protocol Diphenhydramine HCl 25 mg 02/15/20 14:12 02/21/20 09:54 Benadryl Cap PO 25 mg BID PRN Administration itching Enoxaparin Sodium 30 mg 02/19/20 14:00 02/21/20 09:45 Lovenox SUB-Q 30 mg DAILY NEIL Administration Folic Acid 1 mg 02/16/20 09:00 02/21/20 09:45 Folic Acid PO 1 mg DAILY NEIL Administration Glucagon 1 mg 02/15/20 13:44 Glucagon For Inj IM PRN PRN Hypoglycemia Protocol Glucose 15 gm 02/15/20 13:44 Glutose 15 PO PRN PRN Hypoglycemia Protocol Dextrose 1,000 mls @ 100 mls/hr 02/15/20 13:44 Dextrose 5% 1,000 Ml IVPB PRN PRN Hypoglycemia Protocol Ibuprofen 400 mg 02/15/20 14:12 02/20/20 21:28 Motrin PO 400 mg Q12H PRN Administration pain Insulin Aspart 3 units 02/18/20 08:00 02/21/20 13:14 Novolog SUB-Q Not Given TIDWM NEIL Losartan Potassium 50 mg 02/16/20 09:00 02/21/20 09:43 Cozaar PO 50 mg DAILY NEIL Administration Magnesiu
[2020-02-21] MEDS: INSULIN ASPART (*BKC) 100 UNITS/ML SUB-Q (17:38)
[2020-02-21 17:43] LABS: Glucose Point of Care 169 (65-105)
[2020-02-21 20:10] VITALS: BP 130/56; PULSE 98
[2020-02-21 20:15] VITALS: BP 134/52; PULSE 98
[2020-02-21 21:39] LABS: Glucose Point of Care 133 (65-105)
[2020-02-21 22:00] VITALS: BP 130/56; PULSE 98; RESP 20; TEMP 36.7; O2SAT 100
[2020-02-22] MEDS: TRAMADOL HCL 50 MG TABLET PO ×2 (05:28→20:17)
[2020-02-22 06:00] VITALS: BP 150/64; PULSE 94; RESP 20; TEMP 36.3; O2SAT 100
[2020-02-22 06:51] LABS: Glucose Point of Care 129 (65-105)
[2020-02-22 08:00] VITALS: BP 130/59; BP 133/54
[2020-02-22] MEDS: ASPIRIN 81 MG ENTERIC TABLET PO (08:32)
[2020-02-22] MEDS: MENTHOL 10% / METHYL SALICYLATE 15% 57 GM TUBE 1 APPLIC TOPICAL (08:32)
[2020-02-22] MEDS: ATORVASTATIN 10 MG TABLET PO (08:33)
[2020-02-22] MEDS: ENOXAPARIN 30 MG/0.3 ML SYRINGE SUB-Q (08:33)
[2020-02-22] MEDS: INSULIN ASPART (*BKC) 100 UNITS/ML SUB-Q ×3 (08:33→18:17)
[2020-02-22] MEDS: MAGNESIUM OXIDE 200 MG TABLET PO ×2 (08:34→20:14)
[2020-02-22] MEDS: PANTOPRAZOLE 40 MG TABLET PO (08:34)
[2020-02-22] MEDS: LOSARTAN POTASSIUM 50 MG TABLET PO (08:34)
[2020-02-22] MEDS: FOLIC ACID 1 MG TABLET PO (08:34)
[2020-02-22] MEDS: CYCLOBENZAPRINE HCL 5 MG TABLET PO ×2 (08:42→20:17)
--- NOTE | 2020-02-22 11:55 | WPDNEURORHBP ---
Subjective Date/time seen: right periprosthetic fracure of hip with non weight bearing nojeak29/09/20 11:55 Review of Systems Review of Systems: All systems reviewed & are unremarkable except as noted in HPI and below Functional Status Ambulation Ability Ability to Ambulate 10 Feet: Minimum Assistance X 1 Ability to Ambulate 50 Feet With 2 Turns: Minimum Assistance X 1 Ambulation Assistive Devices: Walker, Wheeled Transfers Ability Ability to Transfer In/Out of Chair: Minimum Assistance X 1 Exam Const: General: comfortable HENMT: Head: normal to inspection Ears: hearing grossly normal bilaterally General nose exam: Normal external nose present and No nasal discharge present Mouth: Yes Normal oral and palatal mucosa present Eyes: General: appearance normal, both eyes and all related structures Neck: Neck: full ROM Resp: Effort & Inspection: normal respiratory effort Cardio: Rate: regular rate Rhythm: regular rhythm GI: Auscultation: normal bowel sounds Skin: General skin exam: no rashes or lesions noted Neuro: General: patient oriented x3 Speech: normal speech Sensory Exam: Sensory deficit (Neuro) Extrem: General: normal to inspection Psych: Appearance: grossly normal Objective Data Vital Signs Vital Signs: Vital Signs - 24 hr 02/21/20 14:00 02/21/20 20:10 02/21/20 20:15 Temperature 36.4 C Pulse Rate 107 H 98 98 Respiratory Rate 20 Blood Pressure 115/52 L 130/56 L 134/52 L Pulse Oximetry 100 02/21/20 22:00 02/22/20 06:00 02/22/20 08:00 Temperature 36.7 C 36.3 C L Pulse Rate 98 94 Respiratory Rate 20 20 Blood Pressure 130/56 L 150/64 H 133/54 L Pulse Oximetry 100 100 Intake/Output Intake/Output: Intake & Output 02/19/20 02/20/20 02/21/20 02/22/20 23:59 23:59 23:59 23:59 Intake Total 720 960 840 240 Balance 720 960 840 240 Meds/Results Medications: Active Medications Generic Name Dose Route Start Last Admin Trade Name Freq PRN Reason Stop Dose Admin Aspirin 81 mg 02/16/20 09:00 02/22/20 08:32 Aspirin Ec PO 81 mg DAILY NEIL Administration Atorvastatin Calcium 10 mg 02/16/20 09:00 02/22/20 08:33 Lipitor PO 10 mg DAILY NEIL Administration Calcium Carbonate 200 mg 02/18/20 12:35 02/18/20 12:50 Tums PO 200 mg Q6H PRN Administration Indigestion Cyclobenzaprine HCl 5 mg 02/15/20 14:12 02/22/20 08:42 Flexeril PO 5 mg Q8H PRN Administration Muscle Spasm Dextrose 12.5 gm 02/15/20 13:44 Dextrose 50% Syringe IV PUSH PRN PRN Hypoglycemia Protocol Diphenhydramine HCl 25 mg 02/15/20 14:12 02/22/20 08:51 Benadryl Cap PO 25 mg BID PRN Administration itching Enoxaparin Sodium 30 mg 02/19/20 14:00 02/22/20 08:33 Lovenox SUB-Q 30 mg DAILY NEIL Administration Folic Acid 1 mg 02/16/20 09:00 02/22/20 08:34 Folic Acid PO 1 mg DAILY NEIL Administration Glucagon 1 mg 02/15/20 13:44 Glucagon For Inj IM PRN PRN Hypoglycemia Protocol Glucose 15 gm 02/15/20 13:44 Glutose 15 PO PRN PRN Hypoglycemia Protocol Dextrose 1,000 mls @ 100 mls/hr 02/15/20 13:44 Dextrose 5% 1,000 Ml IVPB PRN PRN Hypoglycemia Protocol Ibuprofen 400 mg 02/15/20 14:12 02/20/20 21:28 Motrin PO 400 mg Q12H PRN Administration pain Insulin Aspart 3 units 02/18/20 08:00 02/22/20 08:33 Novolog SUB-Q 3 units TIDWM NEIL Administration Losartan Potassium 50 mg 02/16/20 09:00 02/22/20 08:34 Cozaar PO 50 mg DAILY NEIL Administration Magnesium Oxide 200 mg 02/15/20 21:00 02/22/20 08:34 Mag-Ox PO 200 mg Q12HR NEIL Administration Menthol/Methyl Salicylate 1 applic 02/18/20 11:58 02/22/20 08:32 Bengay Pain Relieving Cream TOPICAL 1 applic BID PRN Administration Muscle/Joint Pain Ondansetron HCl 4 mg 02/16/20 15:45 02/17/20 06:52 Zofran Odt PO 4 mg Q6H PRN Administrati
[2020-02-22 11:57] LABS: Glucose Point of Care 157 (65-105)
[2020-02-22 14:00] VITALS: BP 107/54; PULSE 76; RESP 20; TEMP 36.9; O2SAT 96
[2020-02-22 17:14] LABS: Glucose Point of Care 130 (65-105)
[2020-02-22 20:00] VITALS: BP 144/64; PULSE 101
[2020-02-22 20:05] VITALS: BP 148/70; PULSE 103
[2020-02-22 21:18] LABS: Glucose Point of Care 212 (65-105)
[2020-02-22 22:00] VITALS: BP 125/60; PULSE 105; RESP 20; TEMP 37.1; O2SAT 100
[2020-02-23 04:37] LABS: Basophils Percent Auto 0.8 % (0.2-1.2); Eosinophils Absolute Auto 0.6 K/mm3 (0-0.3); Eosinophils Percent Auto 11.6 % (0-4.4); Hematocrit 24.4 % (37.0-47.0); Hemoglobin 8.1 g/dL (12.0-15.0); Immature Granulocyte Absolute 0.09 K/mm3 (0.00-0.031); Immature Granulocyte Percent A 1.8 % (0-0.5); Lymphocytes Absolute Auto 0.69 K/mm3 (0.9-3.2); Mean Corpuscular HGB Conc 33.2 g/dl (32-36); Mean Corpuscular Hemoglobin 32.1 pg (26-34); Mean Corpuscular Volume 96.8 fl (80-100); Mean Platelet Volume 10.2 fl (7.4-10.4); Monocytes Absolute Auto 0.9 K/mm3 (0.1-0.6); Monocytes Percent Auto 17.2 % (2.6-8.5); Neutrophils Absolute Auto 2.7 K/mm3 (1.3-6.7); Neutrophils Percent Auto 54.6 % (45.5-73.1); Platelet Count Result 249 k/mm3 (150-375); Red Blood Count 2.52 M/mm3 (4.2-5.4); Red Cell Distribution Width 12.1 % (11.5-14.5); White Blood Count 4.9 K/mm3 (4.5-10.0)
[2020-02-23 04:51] LABS: Blood Urea Nitrogen 23 mg/dL (7-17); Calcium 9.5 mg/dL (8.4-10.2); Carbon Dioxide 27 mmol/L (22-30); Chloride 95 mmol/L (98-107); Estimated CRCL calculation 36 ml/min; Estimated Glomerular Filt Rate 41; Glucose 120 mg/dL (65-105); Potassium 4.9 mmol/L (3.4-5.0); Sodium 129 mmol/L (137-145)
[2020-02-23 06:00] VITALS: BP 127/50; PULSE 99; RESP 20; TEMP 37.1; O2SAT 100
[2020-02-23 06:56] LABS: Glucose Point of Care 111 (65-105)
[2020-02-23 08:00] VITALS: BP 132/49; BP 91/45; PULSE 99; RESP 20; O2SAT 100
[2020-02-23] MEDS: INSULIN ASPART (*BKC) 100 UNITS/ML SUB-Q ×3 (09:21→17:13)
[2020-02-23] MEDS: TRAMADOL HCL 50 MG TABLET PO ×2 (09:21→17:12)
[2020-02-23] MEDS: CYCLOBENZAPRINE HCL 5 MG TABLET PO (09:22)
[2020-02-23] MEDS: ATORVASTATIN 10 MG TABLET PO (09:24)
[2020-02-23] MEDS: ASPIRIN 81 MG ENTERIC TABLET PO (09:24)
[2020-02-23] MEDS: ENOXAPARIN 30 MG/0.3 ML SYRINGE SUB-Q (09:24)
[2020-02-23] MEDS: FOLIC ACID 1 MG TABLET PO (09:24)
[2020-02-23] MEDS: LOSARTAN POTASSIUM 50 MG TABLET PO (09:25)
[2020-02-23] MEDS: PANTOPRAZOLE 40 MG TABLET PO (09:25)
[2020-02-23] MEDS: MAGNESIUM OXIDE 200 MG TABLET PO ×2 (09:25→21:10)
[2020-02-23 12:11] LABS: Glucose Point of Care 115 (65-105)
[2020-02-23 14:00] VITALS: BP 110/56; PULSE 96; RESP 18; TEMP 35.8; O2SAT 100
[2020-02-23 16:54] LABS: Glucose Point of Care 154 (65-105)
[2020-02-23 22:00] VITALS: BP 109/52; PULSE 98; RESP 18; TEMP 36.6; O2SAT 97
[2020-02-23 23:31] LABS: Glucose Point of Care 158 (65-105)
[2020-02-24 05:00] VITALS: BP 117/49; PULSE 72; RESP 20; TEMP 36.7; O2SAT 94
[2020-02-24 06:00] VITALS: BP 132/54; PULSE 99; RESP 18; TEMP 36.3; O2SAT 100
[2020-02-24 07:03] LABS: Glucose Point of Care 104 (65-105)
--- NOTE | 2020-02-24 08:18 | PCPTNOTE ---
Lou Cameron Islas was evaluated for a slide board on 02/24/2020 by this physical therapist assistant professor. The slide board will resolve patient's mobility limitations and will be used for ADL's within the home. The patient can safely use the slide board. ?The slide board will resolve the patient?s mobility deficits, including decreased strength, decreased endurance and non weight bearing to right lower extremity..
[2020-02-24] MEDS: INSULIN ASPART (*BKC) 100 UNITS/ML SUB-Q ×3 (09:12→17:01)
[2020-02-24] MEDS: ATORVASTATIN 10 MG TABLET PO (09:14)
[2020-02-24] MEDS: PANTOPRAZOLE 40 MG TABLET PO (09:14)
[2020-02-24] MEDS: MAGNESIUM OXIDE 200 MG TABLET PO ×2 (09:14→20:28)
[2020-02-24] MEDS: ASPIRIN 81 MG ENTERIC TABLET PO (09:14)
[2020-02-24] MEDS: FOLIC ACID 1 MG TABLET PO (09:14)
--- NOTE | 2020-02-24 09:14 | PM.EVENT ---
Event Note Event Note Event Note: I have reviewed the x-rays of the pelvis and right hip obtained today. There has been no change in the position the femoral component. There is no subsidence no rotational issue at this point so we will persist with the nonsurgical treatment of this condition and plan on re-x-ray ring at the end of the week. Following.
[2020-02-24] MEDS: LOSARTAN POTASSIUM 50 MG TABLET PO (09:15)
[2020-02-24] MEDS: ENOXAPARIN 30 MG/0.3 ML SYRINGE SUB-Q (09:15)
--- NOTE | 2020-02-24 11:46 | PCPTNOTE ---
Jeannette Chavis PTA completed an inpatient rehab wheelchair evaluation on Lou Islas on 02/24/2020. The patient is unable to safely and independently ambulate household distances due to their current impairments. Their diagnosis is r periprosthetic femur fx and their impairments include decreased strength, decreased endurance, decreased range of motion, decreased balance, and lower extremity weakness. Lou's weight bearing status is weight-bearing as tolerated on the left leg and non weight bearing on right lower extremity. The patient demonstrates significant functional mobility limitations that impair their ability to participate in mobility-related activities of daily living (MRADLs), including toileting, feeding, dressing, grooming, and bathing in the customary locations in the home. These limitations cannot be sufficiently resolved by the use of an appropriately fitted cane or walker. It is recommended that the patient utilize a wheelchair for functional mobility within the home in order to facilitate optimal safety, independence and participation in all MRADL's and adequately access their home environment on a regular basis. The patient's home provides adequate access between rooms, maneuvering space, and surfaces to accommodate the recommended wheelchair. The use of a wheelchair for functional mobility is strongly recommended and the patient is receptive to using the wheelchair. The use of this wheelchair will significantly improve the patient's ability to participate in MRADLS and the patient will use it on a regular basis in the home. This will facilitate optimal safety, independence, and participation. The patient has demonstrated sufficient physical and mental capabilities needed to safely propel a manual wheelchair that is provided in the home during a typical day. Recommended Wheelchair Frame: standard Recommended Wheelchair Size: 18x18 Recommended Wheelchair Cushion:standard Wheelchair Arm Rests Recommendations: Bilateral swing away arm rests Wheelchair Leg Recommendations: Bilateral elevating swing away leg rest -Elevating legrests are recommended because the patient has significant edema of the lower extremities that requires an elevating legrest. -Anti-tippers are recommended due to patient demonstrating increased risk for falls. They would benefit from anti-tippers with added safety and stabilization. Jeannette Partha SERRANO 02/24/2020 Evaluating Therapist Date I agree with and certify that the above recommendation is medically necessary. Referring Physician Date I agree with and certify that the above recommendation is medically necessary. Referring Physician Date
[2020-02-24 12:00] LABS: Glucose Point of Care 142 (65-105)
[2020-02-24 14:00] VITALS: BP 138/66; PULSE 107; RESP 20; TEMP 36.4; O2SAT 100
[2020-02-24 16:53] VITALS: BP 134/49; PULSE 105; RESP 20; TEMP 36.7; O2SAT 100
[2020-02-24 17:19] LABS: Glucose Point of Care 147 (65-105)
--- NOTE | 2020-02-24 17:26 | WPDNEURORHBP ---
Subjective Date/time seen: Right periprosthetic fracture of hip with non weight bearing status seen by ortho today will repeat xray at the end of week 02/24/20 17:26 Functional Status Ambulation Ability Ability to Ambulate 10 Feet: Minimum Assistance X 1 Ability to Ambulate 50 Feet With 2 Turns: Minimum Assistance X 1 Ambulation Assistive Devices: Walker, Wheeled Transfers Ability Ability to Transfer In/Out of Chair: Minimum Assistance X 1 Exam Const: General: cooperative, comfortable and no acute distress Eyes: General: appearance normal, both eyes and all related structures Cardio: Rhythm: regular rhythm Skin: General skin exam: no rashes or lesions noted Neuro: General: patient oriented x3 Cranial nerves: Yes CN's II-XII intact bilaterally, Yes Equal, round and reactive pupils present, Yes Bilaterally intact EOM present, Yes Nystagmus not present, Yes Normal facial strength present, Yes Midline tongue present, Yes Ability to bilaterally rotate head present and Yes Ability to bilaterally elevate shoulders present Cognition (Neuro): normal cognition Coordination: [id number] test normal Psych: Appearance: grossly normal Objective Data Vital Signs Vital Signs: Vital Signs - 24 hr 02/23/20 22:00 02/24/20 05:00 02/24/20 06:00 Temperature 36.6 C 36.7 C 36.3 C L Pulse Rate 98 72 99 Respiratory Rate 18 20 18 Blood Pressure 109/52 L 117/49 L 132/54 L Pulse Oximetry 97 94 100 02/24/20 14:00 02/24/20 16:53 Temperature 36.4 C 36.7 C Pulse Rate 107 H 105 H Respiratory Rate 20 20 Blood Pressure 138/66 134/49 L Pulse Oximetry 100 100 Intake/Output Intake/Output: Intake & Output 02/21/20 02/22/20 02/23/20 02/24/20 23:59 23:59 23:59 23:59 Intake Total 946 919 8187 480 Balance 472 021 3619 480 Meds/Results Medications: Active Medications Generic Name Dose Route Start Last Admin Trade Name Freq PRN Reason Stop Dose Admin Aspirin 81 mg 02/16/20 09:00 02/24/20 09:14 Aspirin Ec PO 81 mg DAILY NEIL Administration Atorvastatin Calcium 10 mg 02/16/20 09:00 02/24/20 09:14 Lipitor PO 10 mg DAILY NEIL Administration Calcium Carbonate 200 mg 02/18/20 12:35 02/18/20 12:50 Tums PO 200 mg Q6H PRN Administration Indigestion Cyclobenzaprine HCl 5 mg 02/15/20 14:12 02/23/20 09:22 Flexeril PO 5 mg Q8H PRN Administration Muscle Spasm Dextrose 12.5 gm 02/15/20 13:44 Dextrose 50% Syringe IV PUSH PRN PRN Hypoglycemia Protocol Diphenhydramine HCl 25 mg 02/15/20 14:12 02/24/20 09:16 Benadryl Cap PO 25 mg BID PRN Administration itching Docusate Sodium 100 mg 02/24/20 12:36 Colace Capsule PO Q12H PRN Constipation Enoxaparin Sodium 30 mg 02/19/20 14:00 02/24/20 09:15 Lovenox SUB-Q 30 mg DAILY NEIL Administration Folic Acid 1 mg 02/16/20 09:00 02/24/20 09:14 Folic Acid PO 1 mg DAILY NEIL Administration Glucagon 1 mg 02/15/20 13:44 Glucagon For Inj IM PRN PRN Hypoglycemia Protocol Glucose 15 gm 02/15/20 13:44 Glutose 15 PO PRN PRN Hypoglycemia Protocol Dextrose 1,000 mls @ 100 mls/hr 02/15/20 13:44 Dextrose 5% 1,000 Ml IVPB PRN PRN Hypoglycemia Protocol Ibuprofen 400 mg 02/15/20 14:12 02/20/20 21:28 Motrin PO 400 mg Q12H PRN Administration pain Insulin Aspart 3 units 02/18/20 08:00 02/24/20 17:01 Novolog SUB-Q 3 units TIDWM NEIL Administration Losartan Potassium 50 mg 02/16/20 09:00 02/24/20 09:15 Cozaar PO 50 mg DAILY NEIL Administration Magnesium Oxide 200 mg 02/15/20 21:00 02/24/20 09:14 Mag-Ox PO 200 mg Q12HR NEIL Administration Menthol/Methyl Salicylate 1 applic 02/18/20 11:58 02/22/20 08:32 Bengay Pain Relieving Cream TOPICAL 1 applic BID PRN Administration Muscle/Joint Pain Ondansetron HCl 4 mg 02/16/20 15:45 02/17/20 06:52 Zofran Odt PO 4 mg
[2020-02-24 19:55] LABS: Glucose Point of Care 198 (65-105)
[2020-02-24] MEDS: CYCLOBENZAPRINE HCL 5 MG TABLET PO (21:27)
[2020-02-24 22:00] VITALS: BP 134/63; PULSE 99; RESP 20; TEMP 37.6; O2SAT 100
[2020-02-25 06:00] VITALS: BP 141/76; PULSE 99; RESP 18; TEMP 36.4; O2SAT 97
[2020-02-25 06:58] LABS: Glucose Point of Care 138 (65-105)
[2020-02-25] MEDS: ASPIRIN 81 MG ENTERIC TABLET PO (08:11)
[2020-02-25] MEDS: ATORVASTATIN 10 MG TABLET PO (08:11)
[2020-02-25] MEDS: ENOXAPARIN 30 MG/0.3 ML SYRINGE SUB-Q (08:11)
[2020-02-25] MEDS: FOLIC ACID 1 MG TABLET PO (08:12)
[2020-02-25] MEDS: MAGNESIUM OXIDE 200 MG TABLET PO ×2 (08:12→20:18)
[2020-02-25] MEDS: PANTOPRAZOLE 40 MG TABLET PO (08:12)
[2020-02-25] MEDS: LOSARTAN POTASSIUM 50 MG TABLET PO (08:12)
[2020-02-25] MEDS: CYCLOBENZAPRINE HCL 5 MG TABLET PO ×2 (08:19→20:18)
--- NOTE | 2020-02-25 09:06 | PCOTNOTE ---
It is recommended that this patient, Lou Islas, have a drop-arm commode for home use. This patient is currently non-ambulatory, wheelchair dependent, and requires use of a sliding board to transfer due to non-weightbearing of the right lower extremity. The patient also has further impairments of weakness and decreased endurance and balance. A drop-arm commode is recommended for home use in order to provide optimal safety and independence with toileting tasks and transfers. The drop-arm commode will allow patient access to a toilet, will resolve patient's mobility limitations, and will provide safe access to a toilet within her home. I agree with and certify that the above recommendation is medically necessary.
[2020-02-25] MEDS: INSULIN ASPART (*BKC) 100 UNITS/ML SUB-Q ×3 (10:11→17:56)
[2020-02-25 12:28] LABS: Glucose Point of Care 145 (65-105)
--- NOTE | 2020-02-25 12:35 | PCDIET ---
Nutrition Follow-Up Complete: No nutrition diagnosis at this time. Nutrition Goal: Patient to consume 75% of meals or greater. Goal met. Patient consuming 100% of most meals on diabetic diet which is appropriate. Spoke with patient via phone due to COVID-19 precautions. Patient reports good appetite without c/o. Reports having BM 02/24/20 and 02/25/20. Last recorded weight is 75.4 kg. Recommend obtaining new weight. Bowel Motility: BM today, per patient. Labs Reviewed: Glu (145) Meds Noted: Folic Acid, Novolog, Mag-Ox, Protonix Additional Notes: Left lower leg scab. No documented pressure ulcers. Will continue to monitor with same goal. Nutrition Monitoring and Evaluation: Follow up every 7 days.
[2020-02-25 14:00] VITALS: BP 132/51; PULSE 102; RESP 19; TEMP 36.9; O2SAT 100
--- NOTE | 2020-02-25 16:03 | WPDNEURORHBP ---
Subjective Date/time seen: 02/25/20 16:03 Interval history: this 64-year-old woman is here with the periprosthetic fracture of the right hip and she is nonweightbearing and is on Lovenox she developed a rash in the left arm and Sienna not helping beside that she denies any headache nausea vomiting fevers chills or sore throat she is going to get some x-rays performed as per recommendation of the orthopedic physician Review of Systems Review of Systems: All systems reviewed & are unremarkable except as noted in HPI and below Functional Status Ambulation Ability Ability to Ambulate 10 Feet: Minimum Assistance X 1 Ability to Ambulate 50 Feet With 2 Turns: Minimum Assistance X 1 Ambulation Assistive Devices: Walker, Wheeled Transfers Ability Ability to Transfer In/Out of Chair: Minimum Assistance X 1 Exam Const: General: comfortable and no acute distress HENMT: General nose exam: Normal nares present Mouth: Yes moist mucous membranes Eyes: General: appearance normal, both eyes and all related structures Neck: Neck: supple and no JVD Resp: Effort & Inspection: normal respiratory effort Auscultation: clear to auscultation bilaterally Cardio: Rate: regular rate Rhythm: regular rhythm GI: GI Palp: Yes Soft to palpation Auscultation: normal bowel sounds Skin: General skin exam: normal color and no rashes or lesions noted Neuro: Other: she is awake alert well oriented time place and person has normal speech and language function vertebral weakness is has is related to the periprosthetic fracture and also evidence of peripheral neuropathy which is dual and related to chronic alcoholism and diabetes she also has a rash which M1 treat the on with the Depo-Medrol for right now Extrem: Other: rash on the left forearm which looks maculopapular along with the fragility of the skin be due to multiple factors Psych: Mental Status: mental status grossly normal Objective Data Vital Signs Vital Signs: Vital Signs - 24 hr 02/24/20 16:53 02/24/20 22:00 02/25/20 06:00 Temperature 36.7 C 37.6 C H 36.4 C Pulse Rate 105 H 99 99 Respiratory Rate 20 20 18 Blood Pressure 134/49 L 134/63 141/76 H Pulse Oximetry 100 100 97 02/25/20 14:00 Temperature 36.9 C Pulse Rate 102 H Respiratory Rate 19 Blood Pressure 132/51 L Pulse Oximetry 100 Intake/Output Intake/Output: Intake & Output 02/22/20 02/23/20 02/24/20 02/25/20 23:59 23:59 23:59 23:59 Intake Total 640 1120 720 720 Balance 640 1120 720 720 Meds/Results Medications: Active Medications Generic Name Dose Route Start Last Admin Trade Name Freq PRN Reason Stop Dose Admin Aspirin 81 mg 02/16/20 09:00 02/25/20 08:11 Aspirin Ec PO 81 mg DAILY NEIL Administration Atorvastatin Calcium 10 mg 02/16/20 09:00 02/25/20 08:11 Lipitor PO 10 mg DAILY NEIL Administration Calcium Carbonate 200 mg 02/18/20 12:35 02/18/20 12:50 Tums PO 200 mg Q6H PRN Administration Indigestion Cyclobenzaprine HCl 5 mg 02/15/20 14:12 02/25/20 08:19 Flexeril PO 5 mg Q8H PRN Administration Muscle Spasm Dextrose 12.5 gm 02/15/20 13:44 Dextrose 50% Syringe IV PUSH PRN PRN Hypoglycemia Protocol Diphenhydramine HCl 25 mg 02/15/20 14:12 02/25/20 08:19 Benadryl Cap PO 25 mg BID PRN Administration itching Docusate Sodium 100 mg 02/24/20 12:36 Colace Capsule PO Q12H PRN Constipation Enoxaparin Sodium 30 mg 02/19/20 14:00 02/25/20 08:11 Lovenox SUB-Q 30 mg DAILY NEIL Administration Folic Acid 1 mg 02/16/20 09:00 02/25/20 08:12 Folic Acid PO 1 mg DAILY NEIL Administration Glucagon 1 mg 02/15/20 13:44 Glucagon For Inj IM PRN PRN Hypoglycemia Protocol Glucose 15 gm 02/15/20 13:44 Glutose 15 PO PRN PRN Hypoglycemia Protocol Dextrose 1,000 mls @ 100 mls/hr 02/15/20 13:44 Dextrose 5% 1,000 Ml IVPB PRN PRN Hypoglyce
[2020-02-25 17:30] LABS: Glucose Point of Care 173 (65-105)
[2020-02-25] MEDS: methylPREDNISolone (MEDROL) DOSEPACK 4 MG TABLETS PO (17:56)
[2020-02-25 20:00] VITALS: BP 159/79; PULSE 106; RESP 18; TEMP 36.9; O2SAT 100
[2020-02-25 20:11] LABS: Glucose Point of Care 200 (65-105)
[2020-02-25] MEDS: TRAMADOL HCL 50 MG TABLET PO (20:19)
[2020-02-25 22:00] VITALS: BP 145/72; PULSE 103; RESP 18; TEMP 37.4; O2SAT 99
[2020-02-26 06:00] VITALS: BP 144/73; PULSE 107; RESP 19; TEMP 36.9; O2SAT 100
[2020-02-26 06:59] LABS: Glucose Point of Care 230 (65-105)
[2020-02-26] MEDS: INSULIN ASPART (*BKC) 100 UNITS/ML SUB-Q ×3 (09:39→17:35)
[2020-02-26] MEDS: ATORVASTATIN 10 MG TABLET PO (09:41)
[2020-02-26] MEDS: ENOXAPARIN 30 MG/0.3 ML SYRINGE SUB-Q (09:41)
[2020-02-26] MEDS: ASPIRIN 81 MG ENTERIC TABLET PO (09:41)
[2020-02-26] MEDS: LOSARTAN POTASSIUM 50 MG TABLET PO (09:42)
[2020-02-26] MEDS: FOLIC ACID 1 MG TABLET PO (09:42)
[2020-02-26] MEDS: PANTOPRAZOLE 40 MG TABLET PO (09:42)
[2020-02-26] MEDS: MAGNESIUM OXIDE 200 MG TABLET PO ×2 (09:42→20:15)
[2020-02-26] MEDS: CYCLOBENZAPRINE HCL 5 MG TABLET PO ×2 (09:58→20:16)
[2020-02-26 12:38] LABS: Glucose Point of Care 163 (65-105)
--- NOTE | 2020-02-26 13:47 | WPDNEURORHBP ---
Subjective Date/time seen: 02/26/20 13:47 Interval history: this 64-year-old woman is recuperating here after having had right-sided periprosthetic hip fracture she is stable denies any headache nausea vomiting chest pain shortness of breath fever chills or sore throat Review of Systems Review of Systems: All systems reviewed & are unremarkable except as noted in HPI and below Functional Status Ambulation Ability Ability to Ambulate 10 Feet: Minimum Assistance X 1 Ability to Ambulate 50 Feet With 2 Turns: Minimum Assistance X 1 Ambulation Assistive Devices: Walker, Wheeled Transfers Ability Ability to Transfer In/Out of Chair: Minimum Assistance X 1 Exam Const: General: comfortable and no acute distress HENMT: General nose exam: Normal nares present Mouth: Yes moist mucous membranes Eyes: General: appearance normal, both eyes and all related structures Neck: Neck: supple and no JVD Resp: Effort & Inspection: normal respiratory effort Auscultation: clear to auscultation bilaterally Cardio: Rate: regular rate Rhythm: regular rhythm GI: GI Palp: Yes Soft to palpation Auscultation: normal bowel sounds Skin: General skin exam: normal color and no rashes or lesions noted Neuro: Other: she is awake and alert well wanted time place and person normal speech language function neuropathy is stable she is doing well in the rehab the weakness is related to the nonweightbearing status on the right lower extrem Extrem: General: normal to inspection Psych: Mental Status: mental status grossly normal Objective Data Vital Signs Vital Signs: Vital Signs - 24 hr 02/25/20 14:00 02/25/20 20:00 02/25/20 22:00 Temperature 36.9 C 36.9 C 37.4 C Pulse Rate 102 H 106 H 103 H Respiratory Rate 19 18 18 Blood Pressure 132/51 L 159/79 H 145/72 H Pulse Oximetry 100 100 99 02/26/20 06:00 Temperature 36.9 C Pulse Rate 107 H Respiratory Rate 19 Blood Pressure 144/73 H Pulse Oximetry 100 Intake/Output Intake/Output: Intake & Output 02/23/20 02/24/20 02/25/20 02/26/20 23:59 23:59 23:59 23:59 Intake Total 0373 026 9487 840 Balance 3695 025 3441 840 Meds/Results Medications: Active Medications Generic Name Dose Route Start Last Admin Trade Name Freq PRN Reason Stop Dose Admin Aspirin 81 mg 05/03/20 09:00 02/26/20 09:41 Aspirin Ec PO 81 mg DAILY NIEL Administration Atorvastatin Calcium 10 mg 02/16/20 09:00 02/26/20 09:41 Lipitor PO 10 mg DAILY NEIL Administration Calcium Carbonate 200 mg 02/18/20 12:35 02/18/20 12:50 Tums PO 200 mg Q6H PRN Administration Indigestion Cyclobenzaprine HCl 5 mg 02/15/20 14:12 02/26/20 09:58 Flexeril PO 5 mg Q8H PRN Administration Muscle Spasm Dextrose 12.5 gm 02/15/20 13:44 Dextrose 50% Syringe IV PUSH PRN PRN Hypoglycemia Protocol Diphenhydramine HCl 25 mg 02/15/20 14:12 02/26/20 13:05 Benadryl Cap PO 25 mg BID PRN Administration itching Docusate Sodium 100 mg 02/24/20 12:36 Colace Capsule PO Q12H PRN Constipation Enoxaparin Sodium 30 mg 02/19/20 14:00 02/26/20 09:41 Lovenox SUB-Q 30 mg DAILY NEIL Administration Folic Acid 1 mg 02/16/20 09:00 02/26/20 09:42 Folic Acid PO 1 mg DAILY NEIL Administration Glucagon 1 mg 02/15/20 13:44 Glucagon For Inj IM PRN PRN Hypoglycemia Protocol Glucose 15 gm 02/15/20 13:44 Glutose 15 PO PRN PRN Hypoglycemia Protocol Dextrose 1,000 mls @ 100 mls/hr 02/15/20 13:44 Dextrose 5% 1,000 Ml IVPB PRN PRN Hypoglycemia Protocol Ibuprofen 400 mg 02/15/20 14:12 02/20/20 21:28 Motrin PO 400 mg Q12H PRN Administration pain Insulin Aspart 3 units 02/18/20 08:00 02/26/20 13:01 Novolog SUB-Q 3 units TIDWM NEIL Administration Losartan Potassium 50 mg 02/16/20 09:00 02/26/20 09:42 Cozaar PO 50 mg DAILY NEIL Administration Ma
[2020-02-26 14:00] VITALS: BP 133/59; PULSE 103; RESP 18; TEMP 36.5; O2SAT 100
--- NOTE | 2020-02-26 16:50 | PM.PNORT ---
Progress Note: A&P Assessment and Plan (1) Periprosthetic fracture around internal prosthetic right hip joint: Qualifiers: Encounter type: initial encounter Qualified Code(s): M97.01XA - Periprosthetic fracture around internal prosthetic right hip joint, initial encounter Code(s): M97.01XA - Periprosthetic fracture around internal prosthetic right hip joint, initial encounter Status: Acute Assessment and Plan: There is another x-ray ordered for Monday two days from now. Anticipated discharge this weekend. I will see her in the office on March 05 at 10:00 a.m. for another x-ray of the right hip. This was discussed with her. No change in activity level. Recommend Tylenol alone for discomfort. Following. Time Spent With Patient Time with patient: 15 - 25 minutes Subjective Subjective Date/Time Seen: 02/26/20 16:50 Principal diagnosis: Right hip periprosthetic femur fracture Interval history: 64-year-old female with a healing right hip periprosthetic femur fracture. Most recent x-ray shows no loss of fixation of the femoral component and early interval healing. Review of Systems Constitutional: Constitutional: Denies chills and Denies fever(s) Eyes: Eyes: Reports no additional eye complaints ENT: Reports system reviewed and no additional complaints, except as documented Cardiovascular: Cardiovascular: Denies chest pain and Denies dyspnea on exertion Respiratory: Respiratory: Reports no additional respiratory complaints and Denies dyspnea on exertion Gastrointestinal: Gastrointestinal: Denies abdominal pain and Denies bloating Exam Const: General: cooperative, no acute distress and alert Nutritional Appearance: other Orientation/consciousness: patient oriented x3 Limitations: no limitations Extrem: General: normal to inspection and other Other: Exam of the right hip reveals minimal irritability. Neurovascular status grossly intact to the right lower extremity. Calves negative. Psych: Appearance: grossly normal Mental Status: mental status grossly normal Objective Data Vital Signs Vital Signs: Vital Signs - 24 hr 02/25/20 20:00 02/25/20 22:00 02/26/20 06:00 Temperature 98.4 F 99.4 F 98.5 F Pulse Rate 106 H 103 H 107 H Respiratory Rate 18 18 19 Blood Pressure 159/79 H 145/72 H 144/73 H Pulse Oximetry 100 99 100 02/26/20 14:00 Temperature 97.7 F Pulse Rate 103 H Respiratory Rate 18 Blood Pressure 133/59 L Pulse Oximetry 100 Intake/Output Intake/Output: Intake & Output 02/23/20 02/24/20 02/25/20 02/26/20 23:59 23:59 23:59 23:59 Intake Total 1120 / 1120 720 / 720 1200 / 1200 840 / 840 Balance 1120 / 1120 720 / 720 1200 / 1200 840 / 840 Meds/Results Medications: Active Medications Generic Name Dose Route Start Last Admin Trade Name Freq PRN Reason Stop Dose Admin Aspirin 81 mg 02/16/20 09:00 02/26/20 09:41 Aspirin Ec PO 81 mg DAILY NEIL Administration Atorvastatin Calcium 10 mg 02/16/20 09:00 02/26/20 09:41 Lipitor PO 10 mg DAILY NEIL Administration Calcium Carbonate 200 mg 02/18/20 12:35 02/18/20 12:50 Tums PO 200 mg Q6H PRN Administration Indigestion Cyclobenzaprine HCl 5 mg 02/15/20 14:12 02/26/20 09:58 Flexeril PO 5 mg Q8H PRN Administration Muscle Spasm Dextrose 12.5 gm 02/15/20 13:44 Dextrose 50% Syringe IV PUSH PRN PRN Hypoglycemia Protocol Diphenhydramine HCl 25 mg 02/15/20 14:12 02/26/20 13:05 Benadryl Cap PO 25 mg BID PRN Administration itching Docusate Sodium 100 mg 02/24/20 12:36 Colace Capsule PO Q12H PRN Constipation Enoxaparin Sodium 30 mg 02/19/20 14:00 02/26/20 09:41 Lovenox SUB-Q 30 mg DAILY NEIL Administration Folic Acid 1 mg 02/16/20 09:00 02/26/20 09:42 Folic Acid PO 1 mg DAILY NEIL Administration Glucagon 1 mg 02/15/20 13:44 Glucagon For Inj IM PRN PRN Hypoglycemia Protocol
[2020-02-26 17:27] LABS: Glucose Point of Care 207 (65-105)
[2020-02-26 17:28] VITALS: BP 133/51; PULSE 98; RESP 18; TEMP 36.6; O2SAT 98
[2020-02-26] MEDS: methylPREDNISolone (MEDROL) DOSEPACK 4 MG TABLETS PO (17:34)
[2020-02-26 20:10] LABS: Glucose Point of Care 177 (65-105)
[2020-02-26 22:00] VITALS: BP 137/48; PULSE 101; RESP 18; TEMP 36.6; O2SAT 100
[2020-02-27 06:00] VITALS: BP 156/73; PULSE 94; RESP 18; TEMP 36.8; O2SAT 100
[2020-02-27 06:56] LABS: Glucose Point of Care 178 (65-105)
[2020-02-27] MEDS: ATORVASTATIN 10 MG TABLET PO (10:13)
[2020-02-27] MEDS: ASPIRIN 81 MG ENTERIC TABLET PO (10:13)
[2020-02-27] MEDS: LOSARTAN POTASSIUM 50 MG TABLET PO (10:14)
[2020-02-27] MEDS: ENOXAPARIN 30 MG/0.3 ML SYRINGE SUB-Q (10:14)
[2020-02-27] MEDS: FOLIC ACID 1 MG TABLET PO (10:15)
[2020-02-27] MEDS: MAGNESIUM OXIDE 200 MG TABLET PO ×2 (10:19→20:46)
[2020-02-27] MEDS: INSULIN ASPART (*BKC) 100 UNITS/ML SUB-Q ×3 (10:21→17:45)
[2020-02-27] MEDS: PANTOPRAZOLE 40 MG TABLET PO (10:21)
[2020-02-27] MEDS: CYCLOBENZAPRINE HCL 5 MG TABLET PO ×2 (10:25→18:50)
[2020-02-27 12:25] LABS: Glucose Point of Care 130 (65-105)
[2020-02-27 14:00] VITALS: BP 148/61; PULSE 108; RESP 18; TEMP 36.3; O2SAT 100
[2020-02-27 17:36] LABS: Glucose Point of Care 167 (65-105)
[2020-02-27] MEDS: methylPREDNISolone (MEDROL) DOSEPACK 4 MG TABLETS PO ×2 (17:44→20:47)
[2020-02-27] MEDS: TRAMADOL HCL 50 MG TABLET PO (20:54)
[2020-02-27 21:16] LABS: Glucose Point of Care 268 (65-105)
[2020-02-27 22:00] VITALS: BP 129/67; PULSE 99; RESP 18; TEMP 37.6; O2SAT 100
[2020-02-28 06:00] VITALS: BP 144/70; PULSE 104; RESP 18; TEMP 36.9; O2SAT 100
[2020-02-28] MEDS: methylPREDNISolone (MEDROL) DOSEPACK 4 MG TABLETS PO ×3 (06:18→21:56)
[2020-02-28 06:55] LABS: Glucose Point of Care 282 (65-105)
[2020-02-28 08:00] VITALS: PULSE 104; RESP 18; O2SAT 100
[2020-02-28] MEDS: ENOXAPARIN 30 MG/0.3 ML SYRINGE SUB-Q (09:37)
[2020-02-28] MEDS: LOSARTAN POTASSIUM 50 MG TABLET PO (09:37)
[2020-02-28] MEDS: PANTOPRAZOLE 40 MG TABLET PO (09:37)
[2020-02-28] MEDS: ATORVASTATIN 10 MG TABLET PO (09:37)
[2020-02-28] MEDS: MAGNESIUM OXIDE 200 MG TABLET PO ×2 (09:37→21:56)
[2020-02-28] MEDS: FOLIC ACID 1 MG TABLET PO (09:37)
[2020-02-28] MEDS: ASPIRIN 81 MG ENTERIC TABLET PO (09:37)
[2020-02-28] MEDS: INSULIN ASPART (*BKC) 100 UNITS/ML SUB-Q ×3 (09:39→18:03)
[2020-02-28] MEDS: CYCLOBENZAPRINE HCL 5 MG TABLET PO (09:47)
[2020-02-28 12:14] LABS: Glucose Point of Care 213 (65-105)
--- NOTE | 2020-02-28 12:55 | WPDNEURORHBP ---
Subjective Date/time seen: 02/28/20 12:55 Interval history: this 64-year-old diabetic woman who is a known alcoholic and also has diabetic neuropathy is here because of the periprosthetic fracture and being treated conservatively with non weight-bearing she denies any headache nausea vomiting chest pain shortness of breath fever chills or sore throat Review of Systems Review of Systems: All systems reviewed & are unremarkable except as noted in HPI and below Functional Status Ambulation Ability Ability to Ambulate 10 Feet: Minimum Assistance X 1 Ability to Ambulate 50 Feet With 2 Turns: Minimum Assistance X 1 Ambulation Assistive Devices: Walker, Wheeled Transfers Ability Ability to Transfer In/Out of Chair: Minimum Assistance X 1 Exam Const: General: comfortable and no acute distress HENMT: General nose exam: Normal nares present Mouth: Yes moist mucous membranes Eyes: General: appearance normal, both eyes and all related structures Neck: Neck: supple and no JVD Resp: Effort & Inspection: normal respiratory effort Auscultation: clear to auscultation bilaterally Cardio: Rate: regular rate Rhythm: regular rhythm GI: GI Palp: Yes Soft to palpation Auscultation: normal bowel sounds Skin: General skin exam: normal color and no rashes or lesions noted Neuro: Other: patient is awake alert well oriented time place and person doing well looking forward to be going home her neuropathy and gait is stable in postural hypertension is also stable Extrem: Other: on the right lower extremity is limited because of than nonweightbearing status Psych: Mental Status: mental status grossly normal Objective Data Vital Signs Vital Signs: Vital Signs - 24 hr 02/27/20 14:00 02/27/20 22:00 02/28/20 06:00 Temperature 36.3 C L 37.6 C H 36.9 C Pulse Rate 108 H 99 104 H Respiratory Rate 18 18 18 Blood Pressure 148/61 H 129/67 144/70 H Pulse Oximetry 100 100 100 02/28/20 08:00 Temperature Pulse Rate 104 H Respiratory Rate 18 Blood Pressure Pulse Oximetry 100 Intake/Output Intake/Output: Intake & Output 02/25/20 02/26/20 02/27/20 02/28/20 23:59 23:59 23:59 23:59 Intake Total 1200 1080 940 480 Balance 1200 1080 940 480 Meds/Results Medications: Active Medications Generic Name Dose Route Start Last Admin Trade Name Freq PRN Reason Stop Dose Admin Aspirin 325 mg 02/29/20 08:00 Aspirin PO DAILY@0800 NEIL Atorvastatin Calcium 10 mg 02/16/20 09:00 02/28/20 09:37 Lipitor PO 10 mg DAILY NEIL Administration Calcium Carbonate 200 mg 02/18/20 12:35 02/18/20 12:50 Tums PO 200 mg Q6H PRN Administration Indigestion Cyclobenzaprine HCl 5 mg 02/15/20 14:12 02/28/20 09:47 Flexeril PO 5 mg Q8H PRN Administration Muscle Spasm Dextrose 12.5 gm 02/15/20 13:44 Dextrose 50% Syringe IV PUSH PRN PRN Hypoglycemia Protocol Diphenhydramine HCl 25 mg 02/15/20 14:12 02/26/20 20:16 Benadryl Cap PO 25 mg BID PRN Administration itching Docusate Sodium 100 mg 02/24/20 12:36 Colace Capsule PO Q12H PRN Constipation Folic Acid 1 mg 02/16/20 09:00 02/28/20 09:37 Folic Acid PO 1 mg DAILY NEIL Administration Glucagon 1 mg 02/15/20 13:44 Glucagon For Inj IM PRN PRN Hypoglycemia Protocol Glucose 15 gm 02/15/20 13:44 Glutose 15 PO PRN PRN Hypoglycemia Protocol Dextrose 1,000 mls @ 100 mls/hr 02/15/20 13:44 Dextrose 5% 1,000 Ml IVPB PRN PRN Hypoglycemia Protocol Ibuprofen 400 mg 02/15/20 14:12 02/20/20 21:28 Motrin PO 400 mg Q12H PRN Administration pain Insulin Aspart 3 units 02/18/20 08:00 02/28/20 09:39 Novolog SUB-Q 3 units TIDWM NEIL Administration Losartan Potassium 50 mg 02/16/20 09:00 02/28/20 09:37 Cozaar PO 50 mg DAILY NEIL Administration Magnesium Oxide 200 mg 02/15/20 21:00 02/28/20 09:37 Mag-Ox
[2020-02-28 14:00] VITALS: BP 127/67; PULSE 117; RESP 18; TEMP 37.2; O2SAT 100
[2020-02-28 17:16] LABS: Glucose Point of Care 275 (65-105)
[2020-02-28 21:10] VITALS: BP 170/78; PULSE 112; RESP 18; TEMP 36.7; O2SAT 100
[2020-02-28 22:14] LABS: Glucose Point of Care 347 (65-105)
[2020-02-29] MEDS: methylPREDNISolone (MEDROL) DOSEPACK 4 MG TABLETS PO ×2 (05:40→12:06)
[2020-02-29 06:05] VITALS: BP 150/74; PULSE 101; RESP 18; TEMP 36.4; O2SAT 100
[2020-02-29 06:58] LABS: Glucose Point of Care 357 (65-105)
[2020-02-29] MEDS: INSULIN ASPART (*BKC) 100 UNITS/ML SUB-Q ×2 (09:33→12:06)
[2020-02-29] MEDS: ASPIRIN 325 MG TABLET PO (09:35)
[2020-02-29] MEDS: LOSARTAN POTASSIUM 50 MG TABLET PO (09:35)
[2020-02-29] MEDS: FOLIC ACID 1 MG TABLET PO (09:35)
[2020-02-29] MEDS: MAGNESIUM OXIDE 200 MG TABLET PO (09:35)
[2020-02-29] MEDS: ATORVASTATIN 10 MG TABLET PO (09:36)
[2020-02-29] MEDS: PANTOPRAZOLE 40 MG TABLET PO (09:36)
[2020-02-29 10:00] VITALS: PULSE 101; RESP 18; O2SAT 100
[2020-02-29 11:50] LABS: Glucose Point of Care 327 (65-105)
--- NOTE | 2020-03-04 14:24 | DS_ITS ---
DATE OF DISCHARGE: 02/29/2020 DISCHARGE ACUTE REHABILITATION DIAGNOSIS: Periprosthetic femur fracture on the right side with the primary rehab impairment category of orthopedic, that is lower extremity fracture. DISCHARGE ACTIVE COMORBID CONDITIONS: 1. Alcoholic liver disease. 2. Diabetes mellitus. 3. Peripheral neuropathy. 4. GERD. 5. Hypertension. REASON FOR ADMISSION: A 64-year-old right-handed female presented to [facility] on 02/09/2020, subsequent to a syncopal episode at home along with the nausea, vomiting, diarrhea, and dizziness of 4 days duration and not eating well, though continued to drinking alcohol. The patient reportedly was sitting on the toilet, when she got up became dizzy and passed out, landed on her right hip. Initial evaluation revealed her to have negative pelvic and hip x-rays. Hemodynamically, she was stable except that she had the hyponatremia with sodium only 119 and creatinine above the baseline. Her echocardiogram with ejection fraction of 70%. Renal ultrasound negative. She was seen by the surveillance analyst with fluid restriction. Doppler study of the carotid demonstrated 50%-90% stenosis of left and right internal carotid arteries bilaterally. Aspirin and atorvastatin were started. Hip CT on 02/11 documented nondisplaced comminuted periprosthetic fracture of the proximal right femur for which Orthopedics was consulted. She was on toe-touch weightbearing to the right lower extremity. Neurologically, she was stable and was transferred for the further care on the rehab floor with a history of fall in the last 100 days and history of surgeries in the last 100 days. LEVEL OF FUNCTION AT THE TIME OF ADMISSION: The patient was independent for eating and oral hygiene, required supervision for toileting. She refused bathing and upper body dressing evaluation. She required partial assistance for lower body and footwear, substantial assistance for rolling in bed, substantial assistance for sit to lying, partial assistance for lying to sitting, substantial for sit to stand and chair transfer, partial for toilet transfer, substantial for the car transfer, partial assistance for walking 10 feet, but she was unable to walk 50 feet with 2 turns, 150 feet, 10 feet on uneven surfaces, curb or step, 4 steps, 12 steps, picking up object. She required partial assistance for the wheelchair for 50 feet as well as 150 feet. ANTICIPATED REHAB GOALS: Anticipated rehab goals at the time of admission were to make her independent in most of the modalities except to require only partial assistance for curb or step, 4 steps, 12 steps, and setup for the wheelchair for 50 and 150 feet. LEVEL OF FUNCTION AT THE TIME OF DISCHARGE: The patient became independent in eating, oral hygiene, toileting, bathing, upper body dressing, lower body dressing, footwear, rolling in bed, sit to lying, lying to sit, sit to stand, chair transfer, toilet transfer, and car transfer, but she remained unable to walk 10 feet, 50 feet with 2 turns, 150 feet and curb or step, 4 steps, 12 steps, picking up the object. Again, she became independent in wheelchair for 50 feet and 150 feet. HOSPITAL COURSE: During the hospitalization, she was followed by the orthopedic physician, that is Dr. Deny Baig, and at the time of discharge, her evaluation again was consistent with being alcoholic with diabetic neuropathy. She was able to ambulate 10 feet with minimum assistance of 1, 50 feet with 2 turns with minimal assistance of 1, ambulate using the wheeled walker. She was able to transfer in and out of chair with minimum assistance of 1. General physical examination remained stable, so as the vital signs and neuro examination was essentially unchanged. DISCHARGE INSTRUCTIONS: At the time of discharge, she was given ins
== END 2020-02-29 13:30 | disposition home health service (06) | DRG 561 ==
PROVIDERS: Admitting Provider Psychiatry & Neurology Neurology; PCP Internal Medicine; Visit Provider Psychiatry & Neurology Neurology
DX: M97.01XD Periprosthetic fracture around internal prosthetic right hip joint, subsequent encounter (principal); D64.9 Anemia, unspecified; E11.42 Type 2 diabetes mellitus with diabetic polyneuropathy; E11.51 Type 2 diabetes mellitus with diabetic peripheral angiopathy without gangrene; E78.5 Hyperlipidemia, unspecified; G62.1 Alcoholic polyneuropathy; I10 Essential (primary) hypertension; I65.23 Occlusion and stenosis of bilateral carotid arteries; F10.20 Alcohol dependence, uncomplicated; K70.31 Alcoholic cirrhosis of liver with ascites; K21.9 Gastro-esophageal reflux disease without esophagitis; R21 Rash and other nonspecific skin eruption; Z96.641 Presence of right artificial hip joint; Z79.4 Long term (current) use of insulin; Z87.891 Personal history of nicotine dependence
CPT/HCPCS: 36415; 73502; 80048; 85025; 97110; 97116; 97162; 97166; 97530; 97535; 97542; A9270; J1650; J1815

== ENCOUNTER 2020-03-19 10:08 | Outpatient (CLI) | payer OTHER, SELFPAY ==
[2020-03-19 11:31] LABS: White Blood Count 5.6 K/mm3 (4.5-10.0)
[2020-03-19 11:32] LABS: Hematocrit 27.2 % (37.0-47.0); Hemoglobin 9.1 g/dL (12.0-15.0); Immature Granulocyte Percent A 0.7 % (0-0.5); Mean Corpuscular HGB Conc 33.5 g/dl (32-36); Mean Corpuscular Hemoglobin 31.7 pg (26-34); Mean Corpuscular Volume 94.8 fl (80-100); Mean Platelet Volume 11.3 fl (7.4-10.4); Neutrophils Percent Auto 64.4 % (45.5-73.1); Platelet Count Result 179 k/mm3 (150-375); Red Blood Count 2.87 M/mm3 (4.2-5.4); Red Cell Distribution Width 11.9 % (11.5-14.5); Sodium 123 mmol/L (137-145)
[2020-03-19 11:33] LABS: Alanine Aminotransferase 26 U/L (4-35); Albumin Level 4.3 g/dL (3.5-5.1); Alkaline Phosphatase 374 U/L (38-126); Aspartate Amino Transferase 37 U/L (14-36); Basophils Percent Auto 0.5 % (0.2-1.2); Bilirubin,Total 0.7 mg/dL (0.2-1.3); Blood Urea Nitrogen 16 mg/dL (7-17); Calcium 9.8 mg/dL (8.4-10.2); Carbon Dioxide 22 mmol/L (22-30); Chloride 93 mmol/L (98-107); Eosinophils Absolute Auto 0.4 K/mm3 (0-0.3); Eosinophils Percent Auto 6.6 % (0-4.4); Estimated Glomerular Filt Rate 56; Glucose 196 mg/dL (65-105); Immature Granulocyte Absolute 0.04 K/mm3 (0.00-0.031); Lymphocytes Absolute Auto 1.13 K/mm3 (0.9-3.2); Lymphocytes Percent Auto 20.1 % (18.3-44.2); Monocytes Absolute Auto 0.4 K/mm3 (0.1-0.6); Monocytes Percent Auto 7.7 % (2.6-8.5); Neutrophils Absolute Auto 3.6 K/mm3 (1.3-6.7); Potassium 5.7 mmol/L (3.4-5.0)
== END 2020-03-19 10:09 | disposition home or self-care (01) ==
PROVIDERS: PCP Internal Medicine; Visit Provider Internal Medicine
DX: I10 Essential (primary) hypertension (principal)
CPT/HCPCS: 36415; 80053; 85025

== ENCOUNTER 2020-03-20 08:23 | Outpatient (CLI) | payer OTHER, SELFPAY ==
[2020-03-20 09:27] LABS: Free T4 Free Thyroxine 1.47 ng/mL (0.78-2.19)
== END 2020-03-20 08:24 | disposition home or self-care (01) ==
LOC: ANHLAB 08:24
PROVIDERS: PCP Internal Medicine; Visit Provider Internal Medicine
DX: E87.1 Hypo-osmolality and hyponatremia (principal)
CPT/HCPCS: 36415; 82533; 84439; 84443

== ENCOUNTER 2020-03-24 10:35 | Outpatient (CLI) | payer OTHER, SELFPAY ==
[2020-03-24 11:16] LABS: Sodium Urine Random 30 meq/L
[2020-03-24 11:26] LABS: Blood Urea Nitrogen 17 mg/dL (7-17); Calcium 9.5 mg/dL (8.4-10.2); Carbon Dioxide 23 mmol/L (22-30); Chloride 93 mmol/L (98-107); Estimated Glomerular Filt Rate 50; Glucose 202 mg/dL (65-105); Potassium 5.1 mmol/L (3.4-5.0); Sodium 125 mmol/L (137-145)
[2020-03-27 05:08] LABS: Osmolality, Urine 246 mOsm/kg (50-1200)
== END 2020-03-24 10:36 | disposition home or self-care (01) ==
LOC: ANHLAB 10:37
PROVIDERS: PCP Internal Medicine; Visit Provider Internal Medicine
DX: E87.1 Hypo-osmolality and hyponatremia (principal)
CPT/HCPCS: 36415; 80048; 83930; 83935; 84300

== ENCOUNTER 2020-03-31 09:33 | Outpatient (CLI) | payer OTHER, SELFPAY ==
[2020-03-31 10:44] LABS: Alanine Aminotransferase 33 U/L (4-35); Albumin Level 4.3 g/dL (3.5-5.1); Alkaline Phosphatase 360 U/L (38-126); Aspartate Amino Transferase 39 U/L (14-36); Bilirubin,Total 0.8 mg/dL (0.2-1.3); Blood Urea Nitrogen 11 mg/dL (7-17); Calcium 9.8 mg/dL (8.4-10.2); Carbon Dioxide 24 mmol/L (22-30); Chloride 95 mmol/L (98-107); Estimated Glomerular Filt Rate > 60; Glucose 173 mg/dL (65-105); Potassium 4.9 mmol/L (3.4-5.0); Sodium 127 mmol/L (137-145)
== END 2020-03-31 09:34 | disposition home or self-care (01) ==
PROVIDERS: PCP Internal Medicine; Visit Provider Internal Medicine
DX: E87.1 Hypo-osmolality and hyponatremia (principal)
CPT/HCPCS: 36415; 80053

== ENCOUNTER 2020-04-30 16:25 | Outpatient (CLI) | payer OTHER, SELFPAY ==
[2020-04-30 17:46] LABS: Hemoglobin A1C 6.7 % (<5.7)
[2020-04-30 17:48] LABS: Blood Urea Nitrogen 22 mg/dL (7-17); Calcium 9.5 mg/dL (8.4-10.2); Carbon Dioxide 24 mmol/L (22-30); Chloride 93 mmol/L (98-107); Estimated Glomerular Filt Rate 45; Glucose 112 mg/dL (65-105); Potassium 5.4 mmol/L (3.4-5.0); Sodium 127 mmol/L (137-145)
[2020-04-30 18:10] LABS: Creatinine Urine 25.9 mg/dL
[2020-04-30 18:15] LABS: MALB Creatinine Ratio 30.1 mg/g (0-30); Microalbumin Urine Random 7.8 mg/L (0-16.7)
== END 2020-04-30 16:26 | disposition home or self-care (01) ==
PROVIDERS: PCP Internal Medicine; Referring Provider Internal Medicine Nephrology; Visit Provider Internal Medicine
DX: E87.1 Hypo-osmolality and hyponatremia (principal); E11.9 Type 2 diabetes mellitus without complications; I10 Essential (primary) hypertension
CPT/HCPCS: 36415; 80048; 82043; 83036

== ENCOUNTER 2020-05-07 15:50 | Outpatient (CLI) | payer OTHER, SELFPAY ==
[2020-05-07 16:23] LABS: Anion Gap 15.5 mmol/L (7-16); Blood Urea Nitrogen 25 mg/dL (7-17); Calcium 9.3 mg/dL (8.4-10.2); Carbon Dioxide 24 mmol/L (22-30); Chloride 92 mmol/L (98-107); Estimated Glomerular Filt Rate 28; Glucose 86 mg/dL (65-105); Potassium 5.5 mmol/L (3.4-5.0); Sodium 126 mmol/L (137-145)
== END 2020-05-07 15:51 | disposition home or self-care (01) ==
PROVIDERS: PCP Internal Medicine; Visit Provider Internal Medicine
DX: E87.5 Hyperkalemia (principal)
CPT/HCPCS: 36415; 80048

== ENCOUNTER 2020-05-21 16:05 | Outpatient (CLI) | payer OTHER, SELFPAY ==
[2020-05-21 16:41] LABS: Blood Urea Nitrogen 17 mg/dL (7-17); Calcium 9.1 mg/dL (8.4-10.2); Carbon Dioxide 26 mmol/L (22-30); Chloride 88 mmol/L (98-107); Estimated Glomerular Filt Rate 30; Glucose 110 mg/dL (65-105); Sodium 123 mmol/L (137-145)
== END 2020-05-21 16:06 | disposition home or self-care (01) ==
PROVIDERS: PCP Internal Medicine; Visit Provider Internal Medicine
DX: N17.9 Acute kidney failure, unspecified (principal)
CPT/HCPCS: 36415; 80048

== ENCOUNTER 2020-05-29 13:19 | Outpatient (CLI) | payer OTHER, SELFPAY ==
[2020-05-29 15:00] LABS: Anion Gap 10 mmol/L (8-16); Blood Urea Nitrogen 14 mg/dL (7-17); Calcium 9.3 mg/dL (8.4-10.2); Carbon Dioxide 24 mmol/L (22-30); Chloride 91 mmol/L (98-107); Estimated Glomerular Filt Rate 41; Glucose 100 mg/dL (65-105); Potassium 5.2 mmol/L (3.4-5.0); Sodium 125 mmol/L (137-145)
== END 2020-05-29 13:20 | disposition home or self-care (01) ==
PROVIDERS: Family Provider Internal Medicine Nephrology; PCP Internal Medicine; Visit Provider Internal Medicine
DX: E11.9 Type 2 diabetes mellitus without complications (principal); I10 Essential (primary) hypertension; I50.9 Heart failure, unspecified; E87.1 Hypo-osmolality and hyponatremia; E87.5 Hyperkalemia
CPT/HCPCS: 36415; 80048

== ENCOUNTER 2020-06-25 15:48 | Outpatient (CLI) | payer OTHER, SELFPAY ==
[2020-06-25 16:43] LABS: Albumin Level 4.4 g/dL (3.5-5.1); Anion Gap 9 mmol/L (8-16); Blood Urea Nitrogen 20 mg/dL (7-17); Calcium 9.3 mg/dL (8.4-10.2); Carbon Dioxide 23 mmol/L (22-30); Chloride 94 mmol/L (98-107); Estimated Glomerular Filt Rate 41; Glucose 109 mg/dL (65-105); Phosphorus 4.4 mg/dL (2.5-4.5); Potassium 5.3 mmol/L (3.4-5.0); Sodium 126 mmol/L (137-145)
== END 2020-06-25 15:49 | disposition home or self-care (01) ==
PROVIDERS: PCP Internal Medicine; Visit Provider Internal Medicine Nephrology
DX: E87.5 Hyperkalemia (principal)
CPT/HCPCS: 36415; 80069

== ENCOUNTER 2020-08-16 20:03 | Observation (INO) | payer OTHER, SELFPAY ==
--- NOTE | ~2020-08-16 | CT_ITS ---
EXAMINATION: CT brain wo con DATE: 08/16/2020 20:25 INDICATION: Status post fall. Trauma to the head. TECHNIQUE: Computed tomography (CT) of the head was performed without intravenous contrast. The dose- length product was 605.33 mGy-cm. The mA was adjusted according to patient size. Iterative reconstruc tion technique was employed. COMPARISON: CT dated 02/09/2020 FINDINGS: No acute intracranial hemorrhage, infarction, mass or mass effect. Mild left posterior dung etal scalp swelling. There are scattered mild periventricular and subcortical white matter changes, m ost likely related to small vessel ischemic disease (microangiopathy). No depressed skull fractures. No ventriculomegaly or midline shift. Basilar cisterns are patent. Paranasal sinuses and mastoids are pneumatized. IMPRESSION: 1. No acute intracranial abnormality. Reviewed, dictated and finalized at location A. MANUFACTURING ENGINEER
--- NOTE | ~2020-08-16 | XR_ITS ---
XR forearm LT 2V 08/16/2020 20:35 INDICATION: Left arm pain after fall PROCEDURE: 2 views left forearm COMPARISON: No prior studies for comparison. FINDINGS: Fracture, dislocation or subluxation is not identified. Osteopenia. The soft tissues appear within normal limits. No foreign bodies are identified. IMPRESSION: 1: NO ACUTE BONE OR JOINT ABNORMALITY IDENTIFIED. Reviewed, dictated and finalized at location A. LOP BINDER
[2020-08-16 20:04] VITALS: BP 166/91; PULSE 90; RESP 20; TEMP 36.7; O2SAT 100
--- NOTE | 2020-08-16 20:09 | ED.FALL ---
HPI - Fall General Chief Complaint: Fall Stated Complaint: fall Time Seen by Provider: 08/16/20 20:09 History of Present Illness HPI Narrative: Brought in by EMS from home after a fall. She reports that she does not know how she fell she just stumble backwards. She struck the back of her head in the fall and was noted to have significnat bleeding. She also hit her left forearm. She noted a bump in the forearm. She says that it was painful, but denies any pain at this time. Related Data Home Medications Medication Instructions Recorded Confirmed omeprazole magnesium [Prilosec OTC] 20 mg PO DAILY 02/09/20 07/09/20 acetaminophen 650 mg 650 mg PO Q12H PRN 03/31/20 07/09/20 tablet,extended release diphenhydramine HCl 25 mg tablet 25 mg PO TID PRN 03/31/20 07/09/20 fluticasone propionate [Flonase] 1 spray INTRANASAL DAILY 08/16/20 Allergies Allergy/AdvReac Type Severity Reaction Status Date / Time codeine Allergy Unknown Headache Verified 05/05/20 08:43 Review of Systems Review of Systems: All systems reviewed & are unremarkable except as noted in HPI and below Constitutional: Constitutional: Denies fever(s) and Denies weakness ENT: Reports dizziness Cardiovascular: Cardiovascular: Denies chest pain Respiratory: Respiratory: Denies dyspnea Gastrointestinal: Gastrointestinal: Denies abdominal pain, Denies nausea and Denies vomiting Musculoskeletal: Musculoskeletal: Denies back pain Neurologic: Denies dizziness, Denies headache(s) and Denies weakness [facility] Past Medical History Medical History Alcoholic liver disease Alcoholic peripheral neuropathy BMI 30.0-30.9,adult Cataracts, bilateral Diabetes mellitus last A1c 02-12-20 5.6 GERD (gastroesophageal reflux disease) HTN (hypertension) with goal to be determined Periprosthetic fracture of femur following total replacement of hip January 2020 Surgical History Surgical History H/O: hysterectomy History of lumbar surgery L1-L3 History of right hip replacement 2005 Dr. Curiel in [place] Family History Family History Father Heart attack Afib Mother Hypertension Mother Diabetes mellitus Mother COPD (chronic obstructive pulmonary disease) Sibling Diabetes mellitus Sibling Amputation above knee Social History Social History Smoking status: Former smoker Tobacco type: cigarettes Second hand tobacco smoke exposure: No Smoking end date: 10/16/04 Alcohol intake: former Substance use: unknown Gender identity (if verbalized by the patient): Female Spiritual care concerns: No Agree to blood products: Yes Exam Const: General: no acute distress and alert Nutritional Appearance: obese Orientation/consciousness: patient oriented x3 HENMT: Face and sinus: normal facial exam Other: 2 cm posterior scalp laceration Eyes: Pupils: Equal, round and reactive pupils present Neck: Neck: normal visual inspection Resp: Effort & Inspection: normal respiratory effort Auscultation: clear to auscultation bilaterally Cardio: Rate: regular rate Rhythm: regular rhythm Skin: General skin exam: normal color Neuro: General: patient oriented x3, moves all extremities and CN's II-XI intact bilaterally Speech: Abnormal speech present slurred Extrem: Other: left forearm hematoma w/ minimal tenderness Course Vital Signs Vital signs: Vital Signs Temperature 36.7 C 08/16/20 20:04 Pulse Rate 90 08/16/20 20:04 Respiratory Rate 20 08/16/20 20:04 Blood Pressure 166/91 H 08/16/20 20:04 Pulse Oximetry 100 08/16/20 20:04 Temperature 36.7 C 08/16/20 20:04 Pulse Rate 91 08/16/20 23:06 Respiratory Rate 20 08/16/20 23:06 Blood Pressure 151/85 H 08/16/20 23:06 Pulse Oximetry 100 11
[2020-08-16 21:09] LABS: Basophils Absolute Auto 0.1 K/mm3 (0.0-0.1); Basophils Percent Auto 0.8 % (0.2-1.2); Eosinophils Absolute Auto 0.4 K/mm3 (0-0.3); Eosinophils Percent Auto 5.2 % (0-4.4); Hematocrit 31.7 % (37.0-47.0); Hemoglobin 11.2 g/dL (12.0-15.0); Immature Granulocyte Absolute 0.14 K/mm3 (0.00-0.031); Lymphocytes Absolute Auto 1.03 K/mm3 (0.9-3.2); Lymphocytes Percent Auto 14.4 % (18.3-44.2); Mean Corpuscular HGB Conc 35.3 g/dl (32-36); Mean Corpuscular Hemoglobin 31.8 pg (26-34); Mean Corpuscular Volume 90.1 fl (80-100); Mean Platelet Volume 10.5 fl (7.4-10.4); Monocytes Absolute Auto 0.4 K/mm3 (0.1-0.6); Monocytes Percent Auto 5.6 % (2.6-8.5); Neutrophils Absolute Auto 5.2 K/mm3 (1.3-6.7); Platelet Count Result 188 k/mm3 (150-375); Red Blood Count 3.52 M/mm3 (4.2-5.4); Red Cell Distribution Width 11.9 % (11.5-14.5); White Blood Count 7.2 K/mm3 (4.5-10.0)
[2020-08-16 21:26] LABS: Alanine Aminotransferase 18 U/L (4-35); Alkaline Phosphatase 244 U/L (38-126); Anion Gap 12 mmol/L (8-16); Aspartate Amino Transferase 34 U/L (14-36); Bilirubin,Total 0.6 mg/dL (0.2-1.3); Blood Urea Nitrogen 11 mg/dL (7-17); Calcium 9.2 mg/dL (8.4-10.2); Carbon Dioxide 25 mmol/L (22-30); Chloride 83 mmol/L (98-107); Estimated CRCL calculation 56 ml/min; Estimated Glomerular Filt Rate 55; Ethanol 234 mg/dL (<10); Glucose 167 mg/dL (65-105); Potassium 4.3 mmol/L (3.4-5.0); Sodium 120 mmol/L (137-145)
[2020-08-16] MEDS: SODIUM CHLORIDE 0.9% IV 1,000 ML 999 ML IV CONT (21:54)
[2020-08-16 22:52] VITALS: BP 158/72; PULSE 85; RESP 18; O2SAT 99
[2020-08-16 23:06] VITALS: BP 151/85; PULSE 91; RESP 20; O2SAT 100
--- NOTE | 2020-08-16 23:06 | PC.NURSE ---
Assumed care of pt. at this time. Report from DERRICK Landry
[2020-08-17] VITALS (10 sets, daily range): BP systolic 138–152; BP diastolic 57–83; PULSE 91–115; RESP 12–17; TEMP 36.5–36.7; O2SAT 100; BMI 35.4
--- NOTE | 2020-08-17 01:10 | ADMGEN ---
This patient, Lou Islas, was admitted to Medical Room 347-. Patient/family oriented to hospital policies and general routines including ID bracelet, bed and alarms, visiting hours, pain management, procedures, bathroom and other care routines, personal items, smoking policy, room service/diet, and visiting hours. Information on how to activate the Rapid Response Team has been discussed. Patient/Family are encouraged to report perceived risks to care and to ask questions if they do not understand what they are told or what they should do.
[2020-08-17] MEDS: SODIUM CHLORIDE 0.9% IV 1,000 ML 125 ML IV CONT ×3 (01:47→18:13)
--- NOTE | 2020-08-17 03:17 | PM.IMHP ---
H&P: HPI History of Present Illness Date/Time: 08/17/20 03:17 Chief complaint: Dizziness with fall Narrative: Lou Islas is a 65 year old female with a past medical history of orthostatic hypotension chronic alcoholism and insulin-dependent diabetes who presented to the ER passing out after standing and hitting her head. The patient has a long history of alcoholism, peripheral neuropathy and orthostatic hypotension. She has had a multiple hospitalizations for similar symptoms. When the patient arrived to the ER she was actively intoxicated with a blood alcohol level of 234. She stated that she had only had a couple of drinks. She drinks a large bottle of vodka each week. She does not recall having any palpitations or preceding symptoms to her fall. But evidently she did tell the ER staff that she was having some dizziness after she stood up. She has some tenderness to the posterior scalp where she hit her head. She has some discomfort to her left arm under her elbow but her x-ray performed in the ER was negative. Review of Systems Review of Systems: Narrative: 12 systems were reviewed with pertinent positives and negatives per HPI. Except as documented in the HPI, all other systems were reviewed and are negative. [facility] Past Medical History Medical History (Updated 08/17/20 @ 08:39 by Cyndi Zhao DO) Alcoholic liver disease Alcoholic peripheral neuropathy BMI 30.0-30.9,adult Chronic hyponatremia Diabetes mellitus last A1c 4-29-20 5.6 Eczema GERD (gastroesophageal reflux disease) HTN (hypertension) with goal to be determined Surgical History Surgical History (Updated 08/17/20 @ 08:23 by Cyndi Zhao DO) H/O: hysterectomy 2006 due to uterine fibroids History of bilateral cataract extraction History of lumbar surgery L1-L3 2005 History of right hip replacement 2005 Dr. Curiel in [place] Periprosthetic fracture of femur following total replacement of hip January 2020 Family History Family History Father Afib Heart attack Mother Hypertension Diabetes mellitus COPD (chronic obstructive pulmonary disease) Sibling Diabetes mellitus Amputation above knee Father , At age 50 Acute myocardial infarction Sibling , At age 50 Pancreatic cancer Social History Social History Social History: She lived in [place] until 2 years ago. When her common-law she moved back up to the area to be close to her 3 remaining siblings. She used to smoke 1.5 packs of cigarettes per day but quit smoking in 2005. Primary care physician: Dr. Augustus Birch Code status: Smoking packs per day: 1.5 Smoking cigarettes per day: 30.0 Years smoked: 32 Smoking pack-years: 48.00 Smoking status: Former smoker Tobacco type: cigarettes Second hand tobacco smoke exposure: No Smoking end date: 10/16/04 Alcohol intake: current Alcohol use details: She drinks between 1 L to 1.7 L of vodka a week. Substance use: never Living arrangements: alone Additional living arrangements comments: She has been twice. Her 1st after 16 years the marriage. Her 2nd marriage was brief. Then she had a common-law who in 2018. After that point she moved up to this area from [place] to be closer to family. She lives alone and does not have any pets or children. Occupation/Education: occupation Additional occupation/education comments: She has a master's degree in statistics. 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 Gender identity (if verbalized by the patient): Female Spiritual care concerns: No Agree to blood products: Yes Meds Home Medications and Allergies Home Medications Medication Instructions Recorded Confirmed Type omeprazole magnesium [Prilosec OTC] 20 mg PO DAILY
[2020-08-17] MEDS: THIAMINE HCL 200 MG/2 ML VIAL 100 MG IV PUSH (03:38)
[2020-08-17 06:20] LABS: Anion Gap 7 mmol/L (8-16); Blood Urea Nitrogen 8 mg/dL (7-17); Calcium 8.6 mg/dL (8.4-10.2); Carbon Dioxide 24 mmol/L (22-30); Chloride 94 mmol/L (98-107); Estimated CRCL calculation 62 ml/min; Estimated Glomerular Filt Rate > 60; Glucose 117 mg/dL (65-105); Potassium 4.5 mmol/L (3.4-5.0); Sodium 125 mmol/L (137-145)
[2020-08-17 07:37] LABS: Glucose Point of Care 115 (65-105)
[2020-08-17] MEDS: INSULIN ASPART (*BKC) 100 UNITS/ML 6 UNITS SUB-Q ×3 (08:39→16:47)
[2020-08-17] MEDS: PANTOPRAZOLE SOD SESQUIHYDRATE 20 MG TAB PO (08:40)
[2020-08-17] MEDS: THIAMINE HCL 100 MG TABLET PO (08:40)
[2020-08-17] MEDS: ATORVASTATIN 10 MG TABLET PO (08:40)
[2020-08-17] MEDS: MAGNESIUM OXIDE 200 MG TABLET PO ×2 (08:40→20:55)
[2020-08-17] MEDS: FLUTICASONE PROPIONATE 0.05% NA SPR 16 GM BTL (*BKC) 1 SPRAY NASAL (08:40)
[2020-08-17] MEDS: ASPIRIN 325 MG TABLET PO (08:40)
[2020-08-17] MEDS: FOLIC ACID 1 MG TABLET PO (08:40)
[2020-08-17] MEDS: LOSARTAN POTASSIUM 50 MG TABLET PO (08:40)
--- NOTE | 2020-08-17 11:35 | PM.IMPN ---
Progress Note: A&P Assessment and Plan (1) Hyponatremia: Code(s): E87.1 - Hypo-osmolality and hyponatremia Status: Acute Assessment and Plan: Trending up Continue iv fluids Daily labs Continue to monitor Na= 125 today. (2) Laceration of scalp: Qualifiers: Encounter type: initial encounter Qualified Code(s): S01.01XA - Laceration without foreign body of scalp, initial encounter Code(s): S01.01XA - Laceration without foreign body of scalp, initial encounter Status: Acute Assessment and Plan: Unchanged. Local care (3) Alcohol intoxication: Qualifiers: Complication of substance-induced condition: uncomplicated Qualified Code(s): F10.920 - Alcohol use, unspecified with intoxication, uncomplicated Code(s): F10.929 - Alcohol use, unspecified with intoxication, unspecified Status: Acute Assessment and Plan: Resolved. (4) Alcoholic peripheral neuropathy: Code(s): G62.1 - Alcoholic polyneuropathy Status: Acute Assessment and Plan: Stable Continue to monitor (5) Alcoholic liver disease: Code(s): K70.9 - Alcoholic liver disease, unspecified Status: Chronic Assessment and Plan: Unchanged Continue to monitor (6) Alcoholism: Code(s): F10.20 - Alcohol dependence, uncomplicated Status: Chronic Assessment and Plan: [facility] protocol surveillance Subjective Date/time seen: 08/17/20 11:35 Patient states that she feels well. Review of Systems Review of Systems: Narrative: 65 yo here due to fall at home known to abuse ETOH. Constitutional: Comments: no fevers, no rigors, no chills. Eyes: Comments: no vision changes. ENT: Comments: no ear ache, no throat pain, no nose discharge or congestion. Cardiovascular: Comments: no chest pain. Respiratory: Comments: no cough, no sob, no sputum production. Gastrointestinal: Comments: no n/v/abdominal pain. Genitourinary: Comments: no pain or burning with urination. Musculoskeletal: Comments: B/L LE swelling. Integumentary/Breasts: Comments: B/L LE redness. Neurologic: Comments: Dizziness. Hematologic/Lymphatic: Comments: No LAP Exam Narrative: Exam Narrative: Well appearing. Const: General: cooperative, healthy appearing, comfortable, no acute distress, alert, awake and Physically active Nutritional Appearance: average body habitus Orientation/consciousness: patient oriented x3 HENMT: Head: normal to inspection and normocephalic Ears: hearing grossly normal bilaterally General nose exam: Normal external nose present Face and sinus: normal facial exam Eyes: General: appearance normal, both eyes and all related structures Pupils: Equal, round and reactive pupils present EOM: EOMs intact bilaterally Neck: Neck: normal visual inspection, no lymphadenopathy and no JVD Resp: Effort & Inspection: normal respiratory effort Auscultation: clear to auscultation bilaterally Cardio: Jugular venous distension: no JVD Heart sounds: S1 normal heart sound present and S2 normal heart sound present GI: Inspection: normal to inspection GI Palp: Yes Soft to palpation and Yes No hepatosplenomegaly present Auscultation: normal bowel sounds Skin: General skin exam: normal color and other (B/L LE chronic skin changes and disoloration.) Neuro: General: patient oriented x3 and CN's II-XI intact bilaterally Cranial nerves: Yes CN's II-XII intact bilaterally and Yes Equal, round and reactive pupils present Speech: normal speech Gait exam (Neuro): Normal gait present Motor exam (neuro): 5/5 motor strength present throughout Sensory Exam: normal sensation Extrem: General: pedal edema bilaterally Objective Data Vital Signs Vital Signs: Vital Signs - 24 hr 08/16/20 20:04 08/16/20 22:52 08/16/20 23:06 Temperature 98.0 F Pulse Rate 90 85 91 Respiratory Rate 20 18 20 Blood Pressure 166/91 H 158/72 H 151/85 H Pulse Oximetry 100 99 100
[2020-08-17 11:46] LABS: Glucose Point of Care 116 (65-105)
[2020-08-17 16:47] LABS: Glucose Point of Care 123 (65-105)
[2020-08-17 20:42] LABS: Glucose Point of Care 110 (65-105)
[2020-08-18] VITALS: BP 129/61; PULSE 100
[2020-08-18] MEDS: SODIUM CHLORIDE 0.9% IV 1,000 ML 125 ML IV CONT ×2 (02:10→10:48)
[2020-08-18 04:00] VITALS: BP 136/78; PULSE 96
[2020-08-18 06:00] VITALS: BP 142/70; PULSE 72; RESP 14; TEMP 36.8; O2SAT 97
[2020-08-18 06:34] LABS: Anion Gap 11 mmol/L (8-16); Blood Urea Nitrogen 14 mg/dL (7-17); Calcium 8.8 mg/dL (8.4-10.2); Carbon Dioxide 20 mmol/L (22-30); Chloride 97 mmol/L (98-107); Estimated CRCL calculation 56 ml/min; Estimated Glomerular Filt Rate 55; Glucose 124 mg/dL (65-105); Potassium 4.6 mmol/L (3.4-5.0); Sodium 128 mmol/L (137-145)
[2020-08-18 08:00] VITALS: BP 142/70; PULSE 104
[2020-08-18 08:04] LABS: Glucose Point of Care 146 (65-105)
[2020-08-18] MEDS: MAGNESIUM OXIDE 200 MG TABLET PO (08:26)
[2020-08-18] MEDS: ASPIRIN 325 MG TABLET PO (08:26)
[2020-08-18] MEDS: ATORVASTATIN 10 MG TABLET PO (08:26)
[2020-08-18] MEDS: FLUTICASONE PROPIONATE 0.05% NA SPR 16 GM BTL (*BKC) 1 SPRAY NASAL (08:26)
[2020-08-18] MEDS: LOSARTAN POTASSIUM 50 MG TABLET PO (08:26)
[2020-08-18] MEDS: FOLIC ACID 1 MG TABLET PO (08:26)
[2020-08-18] MEDS: PANTOPRAZOLE SOD SESQUIHYDRATE 20 MG TAB PO (08:26)
[2020-08-18] MEDS: THIAMINE HCL 100 MG TABLET PO (08:27)
[2020-08-18] MEDS: INSULIN GLARGINE (*BKC) 100 UNITS/ML 25 UNITS SUB-Q (08:31)
[2020-08-18 12:00] VITALS: BP 142/70; PULSE 96
[2020-08-18 12:12] LABS: Glucose Point of Care 148 (65-105)
[2020-08-18] MEDS: INSULIN ASPART (*BKC) 100 UNITS/ML 6 UNITS SUB-Q (12:24)
--- NOTE | 2020-08-18 12:52 | PM.DS ---
DS: Admitting Diagnosis Admitting Diagnosis Admitting Diagnosis: Dizziness with fall DS: Discharge Diagnosis Discharge Diagnosis (1) Hyponatremia: Code(s): E87.1 - Hypo-osmolality and hyponatremia Status: Acute Assessment and Plan: Trending up; 128 today - baseline is 125-129; NS IV fluids x 2 days. D/c fluids BMP on 08/21 F/u with PCP (2) Laceration of scalp: Qualifiers: Encounter type: initial encounter Qualified Code(s): S01.01XA - Laceration without foreign body of scalp, initial encounter Code(s): S01.01XA - Laceration without foreign body of scalp, initial encounter Status: Acute Assessment and Plan: Unchanged. Does not appear acutely infected Local care F/u with PCP for staple removal (3) Alcohol intoxication: Qualifiers: Complication of substance-induced condition: uncomplicated Qualified Code(s): F10.920 - Alcohol use, unspecified with intoxication, uncomplicated Code(s): F10.929 - Alcohol use, unspecified with intoxication, unspecified Status: Acute Assessment and Plan: Resolved. (4) Alcoholic peripheral neuropathy: Code(s): G62.1 - Alcoholic polyneuropathy Status: Acute Assessment and Plan: Stable F/u with PCP (5) Alcoholic liver disease: Code(s): K70.9 - Alcoholic liver disease, unspecified Status: Chronic Assessment and Plan: Unchanged. We discussed alcohol cessation again today F/u with PCP (6) Alcoholism: Code(s): F10.20 - Alcohol dependence, uncomplicated Status: Chronic Assessment and Plan: [facility] protocol surveillance during stay. Relatively low or 0. Folic acid and thiamine at discharge Discussed cessation again today F/u with PCP DS: Summary Time Spent with Patient Time attestation: Total time spent providing and/or coordinating discharge services: Exam Narrative: Exam Narrative: General: Patient sitting on side of bed in no acute distress. Finishing lunch. HEENT: Normocephalic, EOMI, oral mucosa moist. Laceration to crown of scalp; deya noted. does not appear acutely infected; dried blood noted. Cardiovascular: Rate and rhythm are regular. No notable murmur, rub, or gallop. Tele shows sinus rythm with occasional skipped beat Respiratory: Lungs clear to auscultation all freeman. Non-labored breathing. Abdomen: Soft, non-tender, non-distended, bowel sounds present. Extremities: Peripheral pulses intact. B/l LE edema Neuro: No focal neurological deficits. Speech is clear. DS: Data Data Completed and Pending Labs on day of discharge: Labs from last 24 hours 08/18/20 08/18/20 08/18/20 11:59 07:50 05:25 Sodium 128 L Potassium 4.6 Chloride 97 L Carbon Dioxide 20 L Anion Gap 11 BUN 14 D Creatinine 1.00 Estim Creat Clear Calc 56 Estimated GFR 55 L Glucose 124 H POC Capillary Glucose 148 H 146 H Calcium 8.8 08/17/20 08/17/20 20:35 16:41 Sodium Potassium Chloride Carbon Dioxide Anion Gap BUN Creatinine Estim Creat Clear Calc Estimated GFR Glucose POC Capillary Glucose 110 123 H Calcium Discharge Plan Discharge Attending physician on discharge: Dick Shaw Discharging Clinician: Casper Erazo Anticipated Discharge Date/Time: 08/18/20 12:59 Patient Disposition: Home, Self-Care Activity: as tolerated Diet: diabetic Discharge Instructions: Discharge instructions per Hospitalist: Follow up with your PCP in 1-2 weeks. Call for an appointment to remove the deya in your scalp Obtain lab work on 08/21 to monitor your sodium levels Alcohol cessation is strongly recommended. Discuss with your PCP i
--- NOTE | 2020-08-18 16:46 | PM.DS ---
DS: Admitting Diagnosis Admitting Diagnosis Admitting Diagnosis: Dizziness with fall DS: Discharge Diagnosis Discharge Diagnosis (1) Hyponatremia: Code(s): E87.1 - Hypo-osmolality and hyponatremia Status: Acute Assessment and Plan: Trending up; 128 today - baseline is 125-129; NS IV fluids x 2 days. D/c fluids BMP on 08/21 F/u with PCP (2) Laceration of scalp: Qualifiers: Encounter type: initial encounter Qualified Code(s): S01.01XA - Laceration without foreign body of scalp, initial encounter Code(s): S01.01XA - Laceration without foreign body of scalp, initial encounter Status: Acute Assessment and Plan: Unchanged. Does not appear acutely infected Local care F/u with PCP for staple removal (3) Alcohol intoxication: Qualifiers: Complication of substance-induced condition: uncomplicated Qualified Code(s): F10.920 - Alcohol use, unspecified with intoxication, uncomplicated Code(s): F10.929 - Alcohol use, unspecified with intoxication, unspecified Status: Acute Assessment and Plan: Resolved. (4) Alcoholic peripheral neuropathy: Code(s): G62.1 - Alcoholic polyneuropathy Status: Acute Assessment and Plan: Stable F/u with PCP (5) Alcoholic liver disease: Code(s): K70.9 - Alcoholic liver disease, unspecified Status: Chronic Assessment and Plan: Unchanged. We discussed alcohol cessation again today F/u with PCP (6) Alcoholism: Code(s): F10.20 - Alcohol dependence, uncomplicated Status: Chronic Assessment and Plan: [facility] protocol surveillance during stay. Relatively low or 0. Folic acid and thiamine at discharge Discussed cessation again today F/u with PCP DS: Summary Hospital Course Reason for hospitalization: s/p fall, reported syncopal episode, hyponatremia Hospital Course: Patient is a 65 year old female with a past medical history of orthostatic hypotension, chronic alcoholism, and insulin-dependent diabetes who presented to the ER on 08/16 after passing out after standing and hitting her head. While in the Ed, patient was found to be intoxicated with a blood alcohol level of 234. Imaging unremarkable for acute process. Serum sodium level was at 120. Patient admitted under this setting. Please see H&P for further details. Patient was admitted to the hospitalist service for further evaluation. Patient was placed on IV fluids with normal saline with improvement of BMP to 128 on discharge which was in her baseline Na level of 125-129. She was given thiamine and folic acid supplementation. she was to follow up with her PCP in 1-2 weeks. She was to obtain BMP on 08/21 to reevaluate sodium level. Alcohol cessation was strongly encouraged. Patient agreeable and comfortable with plan for discharge. Patient hemodynamically stable and in improved condition for discharge on 08/18 Status at Discharge Overall status at discharge: patient is progressing back to baseline Time Spent with Patient Time attestation: Total time spent providing and/or coordinating discharge services: Time spent: Greater than 30 minutes Exam Narrative: Exam Narrative: General: Patient sitting on side of bed in no acute distress. Finishing lunch. HEENT: Normocephalic, EOMI, oral mucosa moist. Laceration to crown of scalp; deya noted. does not appear acutely infected; dried blood noted. Cardiovascular: Rate and rhythm are regular. No notable murmur, rub, or gallop. Tele shows sinus rythm with occasional skipped beat Respiratory: Lungs clear to auscultation all freeman. Non-labored breathing. Abdomen: Soft, non-tender, non-distended, bowel sounds
== END 2020-08-18 15:15 | disposition home or self-care (01) ==
LOC: ANHED 23:19 → ANH3MED 08-17 00:45
PROVIDERS: Internal Medicine; Physician Assistant; Admitting Provider Internal Medicine; Emergency Provider Emergency Medicine; PCP Internal Medicine; Visit Provider Internal Medicine
DX: E87.1 Hypo-osmolality and hyponatremia (principal); S01.01XA Laceration without foreign body of scalp, initial encounter; S59.912A Unspecified injury of left forearm, initial encounter; W19.XXXA Unspecified fall, initial encounter; F10.920 Alcohol use, unspecified with intoxication, uncomplicated; K70.9 Alcoholic liver disease, unspecified; G62.1 Alcoholic polyneuropathy; E11.9 Type 2 diabetes mellitus without complications; K21.9 Gastro-esophageal reflux disease without esophagitis; I10 Essential (primary) hypertension; Z79.4 Long term (current) use of insulin; Z87.891 Personal history of nicotine dependence; Z79.899 Other long term (current) drug therapy
CPT/HCPCS: 12002; 36415; 70450; 73090; 80048; 80053; 80307; 85025; 96360; 96361; 96374; 99285; A9270; G0378; J1815; J3411; J7030

== ENCOUNTER 2020-08-21 12:25 | Outpatient (CLI) | payer OTHER, SELFPAY ==
[2020-08-21 13:07] LABS: Anion Gap 10 mmol/L (8-16); Blood Urea Nitrogen 19 mg/dL (7-17); Calcium 9.3 mg/dL (8.4-10.2); Carbon Dioxide 26 mmol/L (22-30); Chloride 94 mmol/L (98-107); Estimated Glomerular Filt Rate 45; Glucose 123 mg/dL (65-105); Potassium 4.4 mmol/L (3.4-5.0); Sodium 130 mmol/L (137-145)
== END 2020-08-21 12:26 | disposition home or self-care (01) ==
LOC: ANHLAB 12:27
PROVIDERS: PCP Internal Medicine; Visit Provider Physician Assistant
DX: E87.1 Hypo-osmolality and hyponatremia (principal)
CPT/HCPCS: 36415; 80048

== ENCOUNTER 2020-09-17 15:47 | Outpatient (CLI) | payer OTHER, SELFPAY ==
[2020-09-17 16:40] LABS: Albumin Level 4.4 g/dL (3.5-5.1); Anion Gap 10 mmol/L (8-16); Blood Urea Nitrogen 16 mg/dL (7-17); Calcium 9.3 mg/dL (8.4-10.2); Carbon Dioxide 24 mmol/L (22-30); Chloride 92 mmol/L (98-107); Estimated Glomerular Filt Rate 35; Glucose 131 mg/dL (65-105); Phosphorus 4.4 mg/dL (2.5-4.5); Potassium 4.9 mmol/L (3.4-5.0); Sodium 126 mmol/L (137-145)
== END 2020-09-17 15:48 | disposition home or self-care (01) ==
LOC: ANHLAB 15:50
PROVIDERS: PCP Internal Medicine; Visit Provider Internal Medicine Nephrology
DX: E87.5 Hyperkalemia (principal)
CPT/HCPCS: 36415; 80069

== ENCOUNTER 2020-10-06 15:31 | Outpatient (CLI) | payer OTHER, SELFPAY ==
[2020-10-06 16:51] LABS: Hemoglobin A1C 5.6 % (<5.7)
[2020-10-06 17:03] LABS: Creatinine Urine 13.8 mg/dL
[2020-10-06 17:21] LABS: MALB Creatinine Ratio 1892.8 mg/g (0-30); Microalbumin Urine Random 261.2 mg/L (0-16.7)
== END 2020-10-06 15:32 | disposition home or self-care (01) ==
LOC: ANHLAB 15:32
PROVIDERS: PCP Internal Medicine; Visit Provider Internal Medicine
DX: E11.9 Type 2 diabetes mellitus without complications (principal); I10 Essential (primary) hypertension; Z79.4 Long term (current) use of insulin
CPT/HCPCS: 36415; 82043; 83036

== ENCOUNTER 2021-01-02 12:44 | Outpatient (CLI) | payer OTHER, SELFPAY ==
[2021-01-02 13:16] LABS: Basophils Absolute Auto 0.1 K/mm3 (0.0-0.1); Basophils Percent Auto 0.8 % (0.2-1.2); Eosinophils Absolute Auto 0.3 K/mm3 (0-0.3); Eosinophils Percent Auto 5.5 % (0-4.4); Hematocrit 29.8 % (37.0-47.0); Hemoglobin 10.1 g/dL (12.0-15.0); Immature Granulocyte Absolute 0.08 K/mm3 (0.00-0.031); Immature Granulocyte Percent A 1.3 % (0-0.5); Lymphocytes Absolute Auto 0.74 K/mm3 (0.9-3.2); Lymphocytes Percent Auto 12.3 % (18.3-44.2); Mean Corpuscular HGB Conc 33.9 g/dl (32-36); Mean Corpuscular Hemoglobin 31.5 pg (26-34); Mean Corpuscular Volume 92.8 fl (80-100); Mean Platelet Volume 10.9 fl (7.4-10.4); Monocytes Absolute Auto 0.6 K/mm3 (0.1-0.6); Monocytes Percent Auto 10.2 % (2.6-8.5); Neutrophils Absolute Auto 4.2 K/mm3 (1.3-6.7); Neutrophils Percent Auto 69.9 % (45.5-73.1); Platelet Count Result 183 k/mm3 (150-375); Red Blood Count 3.21 M/mm3 (4.2-5.4); Red Cell Distribution Width 12.3 % (11.5-14.5)
[2021-01-02 13:23] LABS: Hemoglobin A1C 5.3 % (<5.7)
[2021-01-02 13:30] LABS: Alanine Aminotransferase 24 U/L (4-35); Albumin Level 4.2 g/dL (3.5-5.1); Alkaline Phosphatase 212 U/L (38-126); Anion Gap 8 mmol/L (8-16); Aspartate Amino Transferase 42 U/L (14-36); Bilirubin,Total 0.8 mg/dL (0.2-1.3); Blood Urea Nitrogen 13 mg/dL (7-17); Calcium 9.1 mg/dL (8.4-10.2); Carbon Dioxide 24 mmol/L (22-30); Chloride 93 mmol/L (98-107); Cholesterol 165 mg/dL (0-200); Estimated Glomerular Filt Rate 50; Glucose 154 mg/dL (65-105); HDL Direct 98 mg/dL; Potassium 4.7 mmol/L (3.4-5.0); Sodium 125 mmol/L (137-145); Triglycerides 108 mg/dL (<150)
[2021-01-02 13:31] LABS: Phosphorus 3.8 mg/dL (2.5-4.5)
[2021-01-02 13:41] LABS: LDL Cholesterol Direct 47 mg/dL
[2021-01-02 13:43] LABS: Creatinine Urine 13.1 mg/dL
[2021-01-02 14:03] LABS: MALB Creatinine Ratio 1798.5 mg/g (0-30); Microalbumin Urine Random 235.6 mg/L (0-16.7)
== END 2021-01-02 12:45 | disposition home or self-care (01) ==
LOC: ANHLAB 12:47
PROVIDERS: PCP Internal Medicine; Referring Provider Internal Medicine Nephrology; Visit Provider Internal Medicine
DX: E11.9 Type 2 diabetes mellitus without complications (principal); E78.2 Mixed hyperlipidemia; E87.1 Hypo-osmolality and hyponatremia; I10 Essential (primary) hypertension; Z79.4 Long term (current) use of insulin; R94.4 Abnormal results of kidney function studies
CPT/HCPCS: 36415; 80053; 80061; 82043; 83036; 84100; 85025

== ENCOUNTER 2021-01-13 12:13 | Observation (INO) | payer OTHER, SELFPAY ==
[2021-01-13] VITALS (19 sets, daily range): BP systolic 129–187; BP diastolic 60–90; PULSE 95–108; RESP 12–20; TEMP 36.6–36.8; O2SAT 97–100
--- NOTE | ~2021-01-13 | US_ITS ---
EXAMINATION: US carotid duplex BI DATE: 01/14/2021 08:58 INDICATION: Syncope TECHNIQUE: Grayscale, color Doppler, and pulsed Doppler images of the cervical carotid arteries were obtained. The degree of vessel stenosis is placed in one of the following categories: normal, <50%, 5 0-69%, >=70% but less than near-occlusion, near-occlusion, or total occlusion. Note that percent sten osis relative to normal distal artery lumen diameter is indirectly measured from velocity measurement s as described by William, et al. Radiology 2003; [id number]. Notes: Normal: Peak systolic velocity <125 centimeters/sec and no plaque <50%. Peak systolic velocity <125 ( EDV <40; ICA/CCA PSV ratio <2.0; used these factors only a tandem lesions or low cardiac output or co ntralateral disease) 50-69 %: PSV 125-230 (EDV 40-100; ratio 2-4) >= 70% but less than near occlusion: PSV greater than 230 (EDV > 100; ratio> 4.0) Near Occlusion: PSV that is variable; markedly narrowed lumen Occlusion: Absent flow on color/spectral Doppler and no lumen on gilliland scale. COMPARISON: Ultrasound dated 02/10/2020 FINDINGS: RIGHT: The right common carotid artery (CCA) peak systolic velocity (PSV) is 110 cm/s. The right internal ca rotid artery (ICA) PSV is 86 cm/s. The right ICA end-diastolic velocity (EDV) is 23 cm/s. The right I CA/CCA PSV ratio is 0.8. The external carotid artery (ECA) PSV is 75 cm/s. There is antegrade flow in the right vertebral artery. LEFT: The left CCA PSV is 103 cm/s. The left ICA PSV is 171 cm/s. The left ICA EDV is 38 cm/s. The left ICA /CCA PSV ratio is 1.7. The ECA PSV is 136 cm/s. There is antegrade flow in the left vertebral artery . IMPRESSION: 1. Less than 50% stenosis in the right internal carotid artery by sonographic criteria. 2. 50-69% stenosis in the left internal carotid artery by sonographic criteria. Reviewed, dictated and finalized at location B. IMPRESSION: 1. Less than 50% stenosis in the right internal carotid artery by sonographic c riteria. 2. 50-69% stenosis in the left internal carotid artery by sonographic criteria.
--- NOTE | ~2021-01-13 | XR_ITS ---
EXAMINATION: XR hip BI 2V w AP pelvis DATE: 01/14/2021 10:40 INDICATION: Right hip pain post fall TECHNIQUE: Anteroposterior view of the pelvis and anteroposterior and frog-leg lateral views of the l eft hip and anteroposterior and frog-leg lateral views of the right hip and were obtained. COMPARISON: 01/13/2021 and 07/09/2020 FINDINGS: Again seen is a noncemented right total hip arthroplasty which is in near-anatomic alignment. No acut e fracture. Again seen is a chronic fracture of the intertrochanteric and subtrochanteric proximal ri ght femur with unchanged mild medial distraction of a lesser trochanteric fragment. No lucency surrou nding the acetabular component or the more distal shaft of the femoral component to suggest loosening or infection. Additional old healed fracture of the left pubic body. Mild left hip osteoarthritis. S acral arches appear intact. Mild bilateral sacroiliac osteoarthritis. IMPRESSION: 1. Right total hip arthroplasty with no significant change since 07/09/2020 in mild displacement of th e chronic intratrochanteric/subtrochanteric periprosthetic fracture of the proximal right femur. No a cute osseous abnormality. Reviewed, dictated and finalized at location A. IMPRESSION: 1. Right total hip arthroplasty with no significant change since 07/09/2020 in m ild displacement of the chronic intratrochanteric/subtrochanteric periprostheti c fracture of the proximal right femur. No acute osseous abnormality.
--- NOTE | ~2021-01-13 | XR_ITS ---
EXAMINATION: XR knee LT min 4V DATE: 01/14/2021 10:40 INDICATION: Left knee pain and swelling TECHNIQUE: Anteroposterior, 2 oblique and crosstable lateral views of the left knee were obtained COMPARISON: None. FINDINGS: Diffuse osteopenia. Alignment is normal. Joint spaces appear normal on nonweightbearing imaging. No l eft knee joint effusion/layering lipohemarthrosis. There is a region of sclerosis underlying the brandie cular surface of the medial tibial plateau which appears relatively linear on a few of the projection s raising suspicion for possible subarticular stress/insufficiency fracture. There is a region of chr onic nonaggressive appearing periosteal reaction along the medial metaphyseal region of the distal le ft femur with similar appearance to the contralateral distal right femoral metaphysis which is of socar btful clinical significance. Soft tissues are unremarkable. IMPRESSION: 1. Diffuse osteopenia with linear sclerosis underlying the left medial tibial plateau raising concern for a stress/insufficiency fracture. Differential would include bone island or enchondroma. Reviewed, dictated and finalized at location A. IMPRESSION: 1. Diffuse osteopenia with linear sclerosis underlying the left medial tibial p lateau raising concern for a stress/insufficiency fracture. Differential would include bone island or enchondroma.
--- NOTE | ~2021-01-13 | XR_ITS ---
EXAMINATION: XR chest 1V 01/13/2021 13:08 INDICATION: Syncope PROCEDURE: AP view of the chest COMPARISON: 02/09/2020 FINDINGS: There is subtle right upper lobe infiltrates which may represent atelectasis or pneumonia. Cardiomegaly. There are no pleural effusions. There is no pneumothorax suspected. IMPRESSION: 1: Subtle right upper lobe infiltrates, atelectasis versus pneumonia. Reviewed, dictated and finalized at location B.
--- NOTE | ~2021-01-13 | XR_ITS ---
EXAMINATION: XR hip RT min 3V w AP pelvis EXAM DATE: 01/13/2021 13:07 INDICATION: Initial encounter following injury, with pain of the pelvis, right hip. TECHNIQUE: Right hip frontal, crosstable lateral and 'frog-leg' projections for interpretation. Front al projection pelvis. Comparison is made to prior examination from 07/09/2020. FINDINGS: There is intact right hip arthroplasty. There is mild to moderate left hip primary osteoart hritis. There are no acute pelvic or right hip fractures or dislocations identified. There may be an old left inferior ramus fracture. There is no subcutaneous gas. Calcifications in the pelvis are bel ieved to be phleboliths. There is no significant interval change. IMPRESSION: Intact right hip arthroplasty. Reviewed, dictated and finalized at location A.
--- NOTE | 2021-01-13 12:26 | ECG_ITS ---
Measurements Intervals [place] Rate: 94 P: [place]: 0 QRS: 70 QRSD: 93 T: 6 QT: 359 QTc: 450 Interpretive Statements SINUS OR ECTOPIC ATRIAL RHYTHM BORDERLINE AV CONDUCTION DELAY BORDERLINE ST-T WAVE ABNORMALITY- INFERIOR LEADS BASELINE ARTIFACT- II, III, AVL, AVF, V2-V4 BORDERLINE ECG Electronically Signed On 01-13-2021 13:13:59 CDT by Joshua Rg D.O.
[2021-01-13 12:51] LABS: Basophils Absolute Auto 0.1 K/mm3 (0.0-0.1); Basophils Percent Auto 0.8 % (0.2-1.2); Eosinophils Absolute Auto 0.1 K/mm3 (0-0.3); Eosinophils Percent Auto 1.9 % (0-4.4); Hemoglobin 11.2 g/dL (12.0-15.0); Immature Granulocyte Absolute 0.36 K/mm3 (0.00-0.031); Immature Granulocyte Percent A 5.8 % (0-0.5); Mean Corpuscular Hemoglobin 31.9 pg (26-34); Mean Corpuscular Volume 91.2 fl (80-100); Mean Platelet Volume 10.1 fl (7.4-10.4); Monocytes Absolute Auto 0.3 K/mm3 (0.1-0.6); Monocytes Percent Auto 4.7 % (2.6-8.5); Neutrophils Absolute Auto 4.5 K/mm3 (1.3-6.7); Neutrophils Percent Auto 73.8 % (45.5-73.1); Platelet Count Result 149 k/mm3 (150-375); Red Blood Count 3.51 M/mm3 (4.2-5.4); Red Cell Distribution Width 12.4 % (11.5-14.5); White Blood Count 6.2 K/mm3 (4.5-10.0)
[2021-01-13 13:03] LABS: INR 1.1; Partial Thromboplastin Time 29.5 SECONDS (22.3-36.8); Prothrombin Time 14.5 Seconds (11.1-14.7)
[2021-01-13 13:03] LABS: Alanine Aminotransferase 25 U/L (4-35); Albumin Level 4.4 g/dL (3.5-5.1); Alkaline Phosphatase 206 U/L (38-126); Anion Gap 10 mmol/L (8-16); Aspartate Amino Transferase 39 U/L (14-36); Bilirubin,Total 0.5 mg/dL (0.2-1.3); Blood Urea Nitrogen 10 mg/dL (7-17); Calcium 8.7 mg/dL (8.4-10.2); Carbon Dioxide 21 mmol/L (22-30); Chloride 90 mmol/L (98-107); Estimated CRCL calculation 39 ml/min; Estimated Glomerular Filt Rate 38; Glucose 106 mg/dL (65-105); Magnesium 1.4 mg/dL (1.6-2.3); Potassium 4.3 mmol/L (3.4-5.0); Sodium 121 mmol/L (137-145)
[2021-01-13 13:05] LABS: Ethanol 93 mg/dL (<10)
[2021-01-13 13:14] LABS: Troponin I < 0.012 ng/mL (0.000-0.034)
--- NOTE | 2021-01-13 13:27 | ED.GENADULT ---
HPI - General Adult General Chief complaint: Extremity Injury, Lower Stated complaint: hip pain Source: patient, EMS and RN notes reviewed Mode of arrival: EMS Limitations: no limitations History of Present Illness HPI narrative: Patient is 65 years old white female came to the emergency room by ambulance because of syncope. Patient lives alone, was sitting on the computer, suddenly blacked out for unknown duration, patient was sitting on with his chair, slid slightly out of bed to the floor, complaining of right hip pain. History of right hip replacement. Patient had similar symptom of syncope in the past secondary to hyponatremia. Patient drinks alcohol daily. Last 1 was last night. Patient denies any fever, chills, nausea, vomiting, chest pain, shortness of breath or back pain. Related Data Home Medications Medication Instructions Recorded Confirmed omeprazole magnesium [Prilosec OTC] 20 mg PO DAILY 02/09/20 09/30/20 diphenhydramine HCl 25 mg tablet 25 mg PO TID PRN 03/31/20 09/30/20 fluticasone propionate 1 spray INTRANASAL DAILY 08/16/20 09/30/20 insulin glargine 100 unit/mL (3 25 unit SUB-Q QPM ml 08/27/20 09/30/20 mL) subcutaneous pen Allergies Allergy/AdvReac Type Severity Reaction Status Date / Time codeine Allergy Unknown Headache Verified 01/13/21 12:23 Review of Systems Review of Systems: Narrative: CONSTITUTIONAL: Denies fever, chills, or sweats. EYES: Denies visual changes, redness, or discharge. ENT: Denies rhinorrhea, congestion, sore throat, or otalgia. CARDIOVASCULAR: Denies chest pain, palpitations, or edema. RESPIRATORY: Denies cough or dyspnea. GASTROINTESTINAL: Denies abdominal pain, nausea, vomiting, or diarrhea. GENITOURINARY: Denies dysuria or hematuria. SKIN: Denies rash or itching. MUSCULOSKELETAL: Denies back pain, joint pain, or myalgia. NEUROLOGIC: Denies headache, numbness, or weakness. PSYCHIATRIC: Denies anxiety or depression. [facility] Past Medical History Medical History Alcoholic liver disease Alcoholic peripheral neuropathy BMI 30.0-30.9,adult Chronic hyponatremia Diabetes mellitus last A1c 02-12-20 5.6 Eczema GERD (gastroesophageal reflux disease) HTN (hypertension) with goal to be determined Surgical History Surgical History H/O: hysterectomy 2005 due to uterine fibroids History of bilateral cataract extraction History of lumbar surgery L1-L3 2005 History of right hip replacement 2005 Dr. Curiel in [place] Periprosthetic fracture of femur following total replacement of hip January 2020 Family History Family History Father Afib Heart attack Mother Hypertension Diabetes mellitus COPD (chronic obstructive pulmonary disease) Sibling Diabetes mellitus Amputation above knee Father , At age 50 Acute myocardial infarction Sibling , At age 50 Pancreatic cancer Social History Social History Social History: She lived in [place] until 2 years ago. When her common-law she moved back up to the area to be close to her 3 remaining siblings. She used to smoke 1.5 packs of cigarettes per day but quit smoking in 2005. Primary care physician: Dr. Augustus Birch Code status: Smoking packs per day: 1.5 Smoking cigarettes per day: 30.0 Years smoked: 32 Smoking pack-years: 48.00 Tobacco type: cigarettes Second hand tobacco smoke exposure: No Smoking end date: 10/16/04 Alcohol intake: current Substance use: never Additional living arrangements comments: She has been twice. Her 1st after 16 years the marriage. Her 2nd marriage was brief. Then she had a common-law who in 2017. After that point she moved up to this area from [place] to be closer to family. She lives [place]
[2021-01-13] MEDS: SODIUM CHLORIDE 0.9% IV 1,000 ML 75 ML IV CONT (13:45)
[2021-01-13] MEDS: MAGNESIUM SULF 2 GM/WATER 50ML 2 GM/50 ML BAG IVPB (13:50)
[2021-01-13 14:50] LABS: Add Urine Microscopic? YES; Appearance Urine Clear (Clear); Bacteria Urine Trace /hpf; Bilirubin Urine Negative (Negative); Blood Urine Negative (Negative); Color Urine Straw (Yellow); Glucose Urine UA Negative (Negative); Ketones Urine Negative (Negative); Leukocyte Esterase Ur Negative LEU/UL (Negative); Nitrate Urine Negative (Negative); Protein Urine 2+ mg/dL (Negative); RBC Urine 0-2 /hpf (0-2); Specific Grav Ur 1.005 (1.001-1.035); Squamous Epithelial Cell Urine Few /hpf (Few); Urobilinogen Urine Negative mg/dL (<2.0); WBC Urine 0-3 /hpf
--- NOTE | 2021-01-13 17:03 | PM.IMHP ---
H&P: HPI History of Present Illness Date/Time: 01/13/21 17:03 this is a 65-year-old female patient who lives home alone. The patient was working at home on her computer when she slid out of the chair. She does have a history of alcoholism. Patient stated that she suddenly blacked out for some unknown reason when she was sitting in the chair. She feels that she fell slipped onto the floor. She is complaining of right hip pain. She has had a history of a right hip replacement to that right leg. The last time she drink was last night she says. Patient denies any fever or chills or nausea or vomiting. EKG was read as sinus rhythm IL ectopic atrial rhythm. Borderline AV conduction delay. Borderline ST T wave abnormality. As intact right hip arthroplasty supple right upper lobe infiltrates atelectasis versus pneumonia. The patient was given IV fluids and magnesium. H&H 11.2 and 32.0. Sodium 121 which is usually [id number]. Chloride 90. Creatinine 1.4. Glucose 106. Alk phosphatase 206 troponin negative. The patient is being admitted for observation date of service of 01/13/2021. Chief Complaint: Right hip pain after fall Review of Systems Review of Systems: All systems reviewed & are unremarkable except as noted in HPI and below Constitutional: Constitutional: Reports as per HPI and Reports no additional constitutional complaints Eyes: Eyes: Reports as per HPI and Reports no additional eye complaints ENT: Reports system reviewed and no additional complaints, except as documented and Reports Normal hearing present Cardiovascular: Cardiovascular: Reports no additional cardiovascular complaints Respiratory: Respiratory: Reports no additional respiratory complaints and Reports no additional respiratory complaints Gastrointestinal: Gastrointestinal: Reports as per HPI and Reports no additional gastrointestinal complaints Musculoskeletal: Musculoskeletal: Reports no additional musculoskeletal complaints Integumentary/Breasts: Skin/Breast: Reports system reviewed and no additional complaints, except as docu and Reports as per HPI Neurologic: Reports system reviewed and no additional complaints, except as documented, Reports as per HPI and Reports Normal hearing present Psychiatric: Psychiatric: Reports no additional psychiatric complaints and Reports as per HPI Endocrine: Endocrine: Reports no additional endocrine complaints Hematologic/Lymphatic: Hematologic/Lymphatic: Reports no additional hematologic/lymphatic complaints Allergic/Immunologic: Allergic/Immunologic: Reports no additional allergic/immunologic complaints [facility] Past Medical History Medical History Alcoholic liver disease Alcoholic peripheral neuropathy BMI 30.0-30.9,adult Chronic hyponatremia Diabetes mellitus last A1c 4-29-20 5.6 Eczema GERD (gastroesophageal reflux disease) HTN (hypertension) with goal to be determined Surgical History Surgical History H/O: hysterectomy 2005 due to uterine fibroids History of bilateral cataract extraction History of lumbar surgery L1-L3 2005 History of right hip replacement 2005 Dr. Curiel in [place] Periprosthetic fracture of femur following total replacement of hip January 2020 Family History Family History Father Afib Heart attack Mother Hypertension Diabetes mellitus COPD (chronic obstructive pulmonary disease) Sibling Diabetes mellitus Amputation above knee Father , At age 50 Acute myocardial infarction Sibling , At age 50 Pancreatic cancer Social History Social History (Updated 01/13/21 @ 17:28 by Petra Navarro NP) Social History: She lived in [place] until 2 years ago. she moved back up to the area to be close to her 3 remaining siblings. She used to smoke 1.5 packs of cigarettes per day but quit smokin
[2021-01-13 18:59] LABS: Anion Gap 9 mmol/L (8-16); Blood Urea Nitrogen 9 mg/dL (7-17); Calcium 8.8 mg/dL (8.4-10.2); Carbon Dioxide 22 mmol/L (22-30); Chloride 92 mmol/L (98-107); Estimated CRCL calculation 45 ml/min; Estimated Glomerular Filt Rate 45; Glucose 95 mg/dL (65-105); Potassium 4.6 mmol/L (3.4-5.0); Sodium 123 mmol/L (137-145)
[2021-01-13 22:21] LABS: Glucose Point of Care 116 (65-105)
[2021-01-13] MEDS: MAGNESIUM OXIDE 200 MG TABLET PO (22:40)
[2021-01-13] MEDS: INSULIN GLARGINE (*BKC) 100 UNITS/ML 25 UNITS SUB-Q (22:40)
[2021-01-13] MEDS: ONDANSETRON INJ 4 MG/2 ML VIAL IV PUSH (23:41)
[2021-01-14] VITALS (9 sets, daily range): BP systolic 143–165; BP diastolic 73–85; PULSE 96–106; RESP 18–20; TEMP 36.7–37.4; O2SAT 99–100
--- NOTE | 2021-01-14 | ECHO_ITS ---
Patient Info Name: Lou Islas Age: 65 years : 1955 Gender: Female Ht: 65 in Wt: 191 lbs BSA: 2.02 m2 HR: 97 bpm BP: 143 / 73 mmHg Technical Quality: Good Exam Date: 01/14/2021 11:23 AM Exam Location: [facility] Pulmonary Exam Room: 307 Patient Status: Outpatient Admit Date: 01/13/2021 Staff Ordering Physician: Petra Navarro NP Erp Project Manager: Ramona Frias RDCS Attending Provider: Melinda Gant MD Referring Physician: Ramon NUÑEZ; Exam Type: CA echo doppler color flow Study Info Indications - SYNCOPE Complete two-dimensional, color flow and Doppler transthoracic echocardiogram is performed. Summary 1. Complete two-dimensional, color flow and Doppler transthoracic echocardiogram is performed. 2. Left ventricular chamber dimension is normal. 3. Left ventricular systolic function is normal, estimated at 60-65%. 4. The left ventricular diastolic function is grade I diastolic dysfunction. 5. E/e' 22 is elevated. 6. Left atrial chamber dimension is mildly enlarged. 7. The mitral valve has moderately calcified annulus. 8. There is mild mitral valve regurgitation. 9. No pulmonary hypertension, estimated pulmonary arterial systolic pressure is 23 mmHg. 10. There is small to moderate circumferential pericardial effusion. No cardiac tamponade. Left Ventricle E/e' 22 is elevated. Left ventricular chamber dimension is normal. Left ventricular systolic function is normal, estimated at 60-65%. The left ventricular diastolic function is grade I diastolic dysfunction. Right Ventricle Right ventricular chamber dimension is normal. Right ventricular systolic function is normal. Left Atria Left atrial chamber dimension is mildly enlarged. Right Atria Right atrial chamber dimension is normal. Aortic Valve The aortic valve is trileaflet. There is no aortic valve stenosis. There is no aortic valve regurgitation. Pulmonic Valve There is no pulmonic regurgitation. Mitral Valve The mitral valve has moderately calcified annulus. There is no mitral valve stenosis. There is mild mitral valve regurgitation. Tricuspid Valve There is no tricuspid valve regurgitation. No pulmonary hypertension, estimated pulmonary arterial systolic pressure is 23 mmHg. Pericardium/Pleural There is small to moderate circumferential pericardial effusion. No cardiac tamponade. Inferior Vena Cava Normal inferior vena cava with >50% collapse upon inspiration consistent with normal right atrial pressure, 5 mmHg. Aorta The aortic root size at the sinus of Valsalva is normal. Left Ventricular Outflow Tract Name Value Normal LVOT 2D LVOT Diameter 2.0 cm LVOT Doppler LVOT Peak Gradient 4 mmHg LVOT Mean Gradient 3 mmHg LVOT VTI 22 cm LVOT VTI/AV VTI Ratio 0.8 LVOT Stroke Volume 69 ml LVOT CO 14.9 l/min LVOT CI 7.4 l/min/m2 Pulmonic Valve
[2021-01-14 06:47] LABS: Hemoglobin A1C 5.4 % (<5.7)
[2021-01-14 06:56] LABS: Anion Gap 5 mmol/L (8-16); Blood Urea Nitrogen 11 mg/dL (7-17); Calcium 8.6 mg/dL (8.4-10.2); Carbon Dioxide 25 mmol/L (22-30); Chloride 95 mmol/L (98-107); Estimated CRCL calculation 42 ml/min; Estimated Glomerular Filt Rate 41; Glucose 63 mg/dL (65-105); Lipase 61 U/L (23-300); Magnesium 1.9 mg/dL (1.6-2.3); Potassium 4.3 mmol/L (3.4-5.0); Sodium 125 mmol/L (137-145)
[2021-01-14 06:58] LABS: Lactic Acid Reflex 0.7 mmol/L (0.7-2.1)
[2021-01-14] MEDS: ONDANSETRON INJ 4 MG/2 ML VIAL IV PUSH ×3 (07:59→21:51)
[2021-01-14] MEDS: THIAMINE HCL 100 MG TABLET PO (09:09)
[2021-01-14] MEDS: FOLIC ACID 1 MG TABLET PO (09:09)
[2021-01-14] MEDS: MAGNESIUM OXIDE 200 MG TABLET PO ×2 (09:09→20:45)
[2021-01-14] MEDS: PANTOPRAZOLE SOD SESQUIHYDRATE 20 MG TAB PO (09:09)
[2021-01-14] MEDS: ASPIRIN 325 MG TABLET PO (09:09)
[2021-01-14] MEDS: LOSARTAN POTASSIUM 100 MG TABLET PO (09:09)
[2021-01-14] MEDS: ATORVASTATIN 10 MG TABLET PO (09:09)
--- NOTE | 2021-01-14 09:10 | PC.NURSE ---
Patient back from Ultrasound
[2021-01-14 10:52] LABS: Glucose Point of Care 70 (65-105)
[2021-01-14] MEDS: traMADol HCL (*CRX) 25 MG TABLET PO ×2 (10:52→17:53)
--- NOTE | 2021-01-14 11:10 | PCPTNOTE ---
Attempted PT eval. RN stated to hold therapy due to pain and await X ray results.
[2021-01-14 12:18] LABS: Glucose Point of Care 111 (65-105)
[2021-01-14] MEDS: SODIUM CHLORIDE 0.9% IV 1,000 ML 75 ML IV CONT (12:23)
--- NOTE | 2021-01-14 14:28 | PM.IMPN ---
Progress Note: A&P Assessment and Plan (1) Syncope: Qualifiers: Syncope type: unspecified Qualified Code(s): R55 - Syncope and collapse Code(s): R55 - Syncope and collapse Status: Acute Assessment and Plan: The patient's alcohol level was found to be 93. The patient slid out of the chair at home. Continue to monitor heart rate. Check carotid PT and OT evaluation. Echo has been ordered. Could be related to her low sodium or her alcohol level. 01/14/21 14:28 patient is 65-year-old female with history of alcoholism presented emergency department with a complaint blacked out and fell on the right side of her hip and left knee and it was painful, to further evaluate patient had a carotid ultrasound right internal carotid artery has less than 50% stenosis however left internal carotid artery showed 50-69% stenosis in the left internal carotid artery by sonographic criteria. Will recommend maximal medical management with aspirin, will check cholesterol, and control hypertension, cardiac echo is pending, patient also had x-ray of the right hip and left knee, patient had a right hip arthroplasty x-ray did not show any changes however left knee shows possible lucency and fracture will consult orthopedic further recommendation, patient with history of alcohol abuse on CIWA protocol and will monitor for DT, once cleared by orthopedic will have a PT OT evaluate the patient. Patient with hyponatremia most likely secondary to alcohol abuse will gently hydrate with NS and limit free water intake and monitor (2) Contusion of hip, right: Qualifiers: Encounter type: sequela Qualified Code(s): S70.01XS - Contusion of right hip, sequela Code(s): S70.01XA - Contusion of right hip, initial encounter Status: Acute Assessment and Plan: Re-x-ray right hip tomorrow she has had a right total hip replacement that hip in the past. It appears to be in place. (3) Hypomagnesemia: Code(s): E83.42 - Hypomagnesemia Status: Acute Assessment and Plan: Replace as necessary. Recheck in the morning. Most likely due to her alcoholism. (4) Anemia of chronic disease: Code(s): D63.8 - Anemia in other chronic diseases classified elsewhere Status: Acute Assessment and Plan: H&H appears to be stable. (5) Hyponatremia: Code(s): E87.1 - Hypo-osmolality and hyponatremia Status: Acute Assessment and Plan: Patient's sodium level slightly lower than what it normally is. The patient is an alcoholic. Continue to hydrate. Check her sodium tonight and again in the morning. 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 (8) Hip pain: Code(s): M25.559 - Pain in unspecified hip Status: Acute Assessment and Plan: Ultram and x-ray right hip tomorrow. Subjective Date/time seen: 01/14/21 14:28 patient is 65-year-old female with history of alcoholism presented emergency department with a complaint blacked out and fell on the right side of her hip and left knee and it was painful, to further evaluate patient had a carotid ultrasound right internal carotid artery has less than 50% stenosis however left internal carotid artery showed 50-69% stenosis in the left internal carotid artery by sonographic criteria. Will recommend maximal
[2021-01-14 16:49] LABS: Glucose Point of Care 150 (65-105)
--- NOTE | 2021-01-14 16:50 | PM.CNOR ---
Assessment and Plan Assessment and plan (1) Contusion of hip, right: Qualifiers: Encounter type: sequela Qualified Code(s): S70.01XS - Contusion of right hip, sequela <WALDEMAR Subramanian - Last Filed: 01/14/21 17:41> Code(s): S70.01XA - Contusion of right hip, initial encounter <WALDEMAR Subramanian - Last Filed: 01/14/21 17:41> Status: Acute <WALDEMAR Subramanian - Last Filed: 01/14/21 17:41> (2) Presence of right artificial hip joint: Code(s): Z96.641 - Presence of right artificial hip joint <WALDEMAR Subramanian - Last Filed: 01/14/21 17:41> Status: Acute <WALDEMAR Subramanian - Last Filed: 01/14/21 17:41> (3) Insufficiency fracture of tibia: Code(s): M84.469A - Pathological fracture, unspecified tibia and fibula, initial encounter for fracture <WALDEMAR Subramanian - Last Filed: 01/14/21 17:41> Status: Acute <WALDEMAR Subramanian - Last Filed: 01/14/21 17:41> Assessment and Plan: Patient was admitted to the hospital on 01/13/2021 after a syncopal episode. Patient states she was sitting in her chair and blacked out. She remembers waking up on the floor with right hip pain and left knee pain. Patient states after waking up she tried to get up and her knee buckled and she fell again. Patient states he she twisted her knee during the fall. Patient has a history of a periprosthetic hip fracture last year treated by Dr. Baig. No pain in left knee prior to fall. Patient states that when trying to get up with physical therapy to use the restroom she had 7/10 pain at her left knee. Pain in knee worse than pain and right hip. Patient states she has neuropathy and always has numbness in her feet. No other pains at this time. X-ray of right hip today showed no changes since the previous radiograph. X-ray of the left knee showed diffuse osteopenia with left medial tibial plateau insufficiency fracture. Patient is unable to bear weight on left knee due to pain. Left medial tibial plateau insufficiency fracture. Apply immobilizer knee brace. Toe- touch weight bearing with walker and follow up in office. <WALDEMAR Subramanian - Last Filed: 01/14/21 17:41> Additional Plan Patient seen and examined. Agree with above documentation. Nondisplaced insufficiency fracture of the medial proximal tibia after a fall. Toe-touch weight-bearing. Follow up in 4 weeks. Reviewed quadriceps exercises with the patient. She uses a wheelchair often at home which will be helpful for any distances. Knee immobilizer when out of bed. Risk of fracture displacement if she bears full weight. <Raymond Pelletier MD - Last Filed: 01/14/21 17:56> History of Present Illness HPI Consult date: 01/14/21 <WALDEMAR Subramanian - Last Filed: 01/14/21 17:41> 01/14/21 <Raymond Pelletier MD - Last Filed: 01/14/21 17:56> Requesting physician: Melinda Gant MD <WALDEMAR Subramanian - Last Filed: 01/14/21 17:41> Consult reason: joint pain <WALDEMAR Subramanian - Last Filed: 01/14/21 17:41> Chief complaint: Syncope, acute on top of chronic hypoatremia, <WALDEMAR Subramanian - Last Filed: 01/14/21 17:41> Narrative: Patient was admitted to the hospital on 01/13/2021 after a syncopal episode. Patient states she was sitting in her chair and blacked out. She remembers waking up on the floor with right hip pain and left knee pain. Patient states after waking up she tried to get up and her knee buckled and she fell again. Patient states he she twisted her knee during the fall. Patient has a history of a periprosthetic hip fracture last year treated by Dr. Baig. X-ray of right hip today showed no changes since the previous radiograph. X-ray of the left knee showed diffuse osteopenia with linear sclerosis underlying the left medial tibial plateau raising concern for a stress/insufficiency fracture. patient states that wh
[2021-01-14] MEDS: INSULIN GLARGINE (*BKC) 100 UNITS/ML 25 UNITS SUB-Q (21:06)
[2021-01-14 22:07] LABS: Glucose Point of Care 158 (65-105)
[2021-01-15] VITALS (10 sets, daily range): BP systolic 149–161; BP diastolic 76–85; PULSE 96–110; RESP 18–20; TEMP 36.2–37; O2SAT 98–100
[2021-01-15] MEDS: traMADol HCL (*CRX) 25 MG TABLET PO (00:21)
[2021-01-15] MEDS: SODIUM CHLORIDE 0.9% IV 1,000 ML 75 ML IV CONT (04:57)
[2021-01-15 06:10] LABS: Hematocrit 27.8 % (37.0-47.0); Hemoglobin 9.7 g/dL (12.0-15.0); Mean Corpuscular HGB Conc 34.9 g/dl (32-36); Mean Corpuscular Hemoglobin 32.1 pg (26-34); Mean Corpuscular Volume 92.1 fl (80-100); Mean Platelet Volume 11.1 fl (7.4-10.4); Platelet Count Result 133 k/mm3 (150-375); Red Blood Count 3.02 M/mm3 (4.2-5.4); Red Cell Distribution Width 12.3 % (11.5-14.5); White Blood Count 6.1 K/mm3 (4.5-10.0)
[2021-01-15 06:16] LABS: Cholesterol 149 mg/dL (0-200); HDL Direct 101 mg/dL; Triglycerides 36 mg/dL (<150)
[2021-01-15 06:26] LABS: LDL Cholesterol Direct 32 mg/dL
[2021-01-15 06:36] LABS: Anion Gap 4 mmol/L (8-16); Blood Urea Nitrogen 9 mg/dL (7-17); Calcium 8.9 mg/dL (8.4-10.2); Carbon Dioxide 25 mmol/L (22-30); Chloride 97 mmol/L (98-107); Estimated CRCL calculation 45 ml/min; Estimated Glomerular Filt Rate 45; Glucose 78 mg/dL (65-105); Magnesium 1.5 mg/dL (1.6-2.3); Potassium 4.3 mmol/L (3.4-5.0); Sodium 126 mmol/L (137-145)
[2021-01-15 07:56] LABS: Glucose Point of Care 69 (65-105)
[2021-01-15] MEDS: ONDANSETRON INJ 4 MG/2 ML VIAL IV PUSH (08:23)
[2021-01-15] MEDS: MAGNESIUM SULF 2 GM/WATER 50ML 2 GM/50 ML BAG IVPB (09:18)
[2021-01-15] MEDS: FLUTICASONE PROPIONATE 0.05% NA SPR 16 GM BTL (*BKC) 1 SPRAY NASAL (09:23)
--- NOTE | 2021-01-15 09:54 | PCOTNOTE ---
OT re-assess attempted, awaiting knee immobilizer before continuing skilled therapy. Will complete re-assess when patient has immobilizer.
[2021-01-15 09:57] LABS: Glucose Point of Care 174 (65-105)
--- NOTE | 2021-01-15 10:29 | PM.IMPN ---
Progress Note: A&P Assessment and Plan (1) Syncope: Qualifiers: Syncope type: unspecified Qualified Code(s): R55 - Syncope and collapse Code(s): R55 - Syncope and collapse Status: Acute Assessment and Plan: 01/15/21 10:29 01/14 patient is 65-year-old female with history of alcoholism presented emergency department with a complaint blacked out and fell on the right side of her hip and left knee and it was painful, to further evaluate patient had a carotid ultrasound right internal carotid artery has less than 50% stenosis however left internal carotid artery showed 50-69% stenosis in the left internal carotid artery by sonographic criteria. Will recommend maximal medical management with aspirin, will check cholesterol, and control hypertension, cardiac echo is pending, patient also had x-ray of the right hip and left knee, patient had a right hip arthroplasty x-ray did not show any changes however left knee shows possible lucency and fracture will consult orthopedic further recommendation, patient with history of alcohol abuse on CIWA protocol and will monitor for DT, once cleared by orthopedic will have a PT OT evaluate the patient. Patient with hyponatremia most likely secondary to alcohol abuse will gently hydrate with NS and limit free water intake and monitor. 01/15 patient with injury to the left knee there was a concern for possible fracture patient was seen by orthopedic surgeon and recommended conservative management with immobilized and minimum weight-bearing and using toes for ambulation, patient be seen physical therapy emergency patient clinically stable will discharge the patient, patient remains clinically stable there is no sign of DT. Patient has chronic hyponatremia due to alcohol abuse patient is recommended minimize free water intake and may salt to her diet. (2) Contusion of hip, right: Qualifiers: Encounter type: sequela Qualified Code(s): S70.01XS - Contusion of right hip, sequela Code(s): S70.01XA - Contusion of right hip, initial encounter Status: Acute Assessment and Plan: Re-x-ray right hip tomorrow she has had a right total hip replacement that hip in the past. It appears to be in place. (3) Hypomagnesemia: Code(s): E83.42 - Hypomagnesemia Status: Acute Assessment and Plan: Replace as necessary. Recheck in the morning. Most likely due to her alcoholism. (4) Anemia of chronic disease: Code(s): D63.8 - Anemia in other chronic diseases classified elsewhere Status: Acute Assessment and Plan: H&H appears to be stable. (5) Hyponatremia: Code(s): E87.1 - Hypo-osmolality and hyponatremia Status: Acute Assessment and Plan: Patient's sodium level slightly lower than what it normally is. The patient is an alcoholic. Continue to hydrate. Check her sodium tonight and again in the morning. 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 (8) Hip pain: Code(s): M25.559 - Pain in unspecified hip Status: Acute Assessment and Plan: Ultram and x-ray right hip tomorrow. Subjective Date/time seen: 01/15/21 10:29 01/14 patient is 65-year-old female with history of alcoholism presented emergency department with a complaint blacked out and fell on the right side of
[2021-01-15] MEDS: ATORVASTATIN 10 MG TABLET PO (10:49)
[2021-01-15] MEDS: PANTOPRAZOLE SOD SESQUIHYDRATE 20 MG TAB PO (10:49)
[2021-01-15] MEDS: ASPIRIN 325 MG TABLET PO (10:49)
[2021-01-15] MEDS: FOLIC ACID 1 MG TABLET PO (10:49)
[2021-01-15] MEDS: LOSARTAN POTASSIUM 100 MG TABLET PO (10:49)
[2021-01-15] MEDS: THIAMINE HCL 100 MG TABLET PO (10:50)
--- NOTE | 2021-01-15 11:28 | PCPTNOTE ---
Attempted PT reeval. Pt does not have knee immobilizer. Will try again at later time.
[2021-01-15] MEDS: MAGNESIUM OXIDE 400 MG TABLET PO (12:02)
[2021-01-15] MEDS: SODIUM CHLORIDE 1 GM TABLET PO (12:02)
[2021-01-15 12:04] LABS: Glucose Point of Care 132 (65-105)
--- NOTE | 2021-01-15 14:52 | PCOTNOTE ---
OT re-assessment attempted. Knee immobilizer not yet in patient room. Will attempt re-assessment at later time when brace arrives.
--- NOTE | 2021-01-15 15:29 | PCPTNOTE ---
Attempted to see pt. Still waiting on knee immobilizer to be delivered. Will try again tomorrow.
[2021-01-15 16:13] LABS: Glucose Point of Care 128 (65-105)
[2021-01-15] MEDS: HYDROcodone/acetaminophen (*CRX) 5-325 MG TABLET 1 TAB PO (16:46)
[2021-01-15] MEDS: INSULIN GLARGINE (*BKC) 100 UNITS/ML 25 UNITS SUB-Q (18:04)
[2021-01-15 21:50] LABS: Glucose Point of Care 165 (65-105)
[2021-01-16] VITALS: PULSE 91
[2021-01-16] MEDS: SODIUM CHLORIDE 0.9% IV 1,000 ML 75 ML IV CONT (01:27)
[2021-01-16 04:00] VITALS: PULSE 93
[2021-01-16 06:00] VITALS: BP 155/69; PULSE 95; RESP 16; TEMP 36.9; O2SAT 100
[2021-01-16 06:38] LABS: Hematocrit 29.9 % (37.0-47.0); Hemoglobin 10.2 g/dL (12.0-15.0); Mean Corpuscular HGB Conc 34.1 g/dl (32-36); Mean Corpuscular Hemoglobin 32.1 pg (26-34); Mean Platelet Volume 10.9 fl (7.4-10.4); Platelet Count Result 140 k/mm3 (150-375); Red Blood Count 3.18 M/mm3 (4.2-5.4); Red Cell Distribution Width 12.3 % (11.5-14.5); White Blood Count 7.1 K/mm3 (4.5-10.0)
[2021-01-16 06:45] LABS: Anion Gap 5 mmol/L (8-16); Blood Urea Nitrogen 10 mg/dL (7-17); Carbon Dioxide 25 mmol/L (22-30); Chloride 97 mmol/L (98-107); Estimated CRCL calculation 45 ml/min; Estimated Glomerular Filt Rate 45; Glucose 87 mg/dL (65-105); Magnesium 1.7 mg/dL (1.6-2.3); Potassium 4.2 mmol/L (3.4-5.0); Sodium 127 mmol/L (137-145)
[2021-01-16 08:00] VITALS: PULSE 97
[2021-01-16 08:07] LABS: Glucose Point of Care 83 (65-105)
[2021-01-16] MEDS: ASPIRIN 325 MG TABLET PO (09:41)
[2021-01-16] MEDS: MAGNESIUM OXIDE 400 MG TABLET PO (09:41)
[2021-01-16] MEDS: THIAMINE HCL 100 MG TABLET PO (09:41)
[2021-01-16] MEDS: ATORVASTATIN 10 MG TABLET PO (09:41)
[2021-01-16] MEDS: LOSARTAN POTASSIUM 100 MG TABLET PO (09:41)
[2021-01-16] MEDS: FOLIC ACID 1 MG TABLET PO (09:41)
[2021-01-16] MEDS: PANTOPRAZOLE SOD SESQUIHYDRATE 20 MG TAB PO (09:42)
[2021-01-16] MEDS: SODIUM CHLORIDE 1 GM TABLET PO (09:42)
[2021-01-16] MEDS: FLUTICASONE PROPIONATE 0.05% NA SPR 16 GM BTL (*BKC) 1 SPRAY NASAL (09:42)
[2021-01-16 11:39] LABS: Glucose Point of Care 116 (65-105)
[2021-01-16 12:00] VITALS: PULSE 108
--- NOTE | 2021-01-16 12:25 | PCOTNOTE ---
OT reassessment completed 01/16/21 due to change in weight bearing status. Current orders remain appropriate.
--- NOTE | 2021-01-16 13:21 | PM.DS ---
DS: Admitting Diagnosis Admitting Diagnosis Admitting Diagnosis: Chief Complaint: Right hip pain after fall DS: Discharge Diagnosis Discharge Diagnosis (1) Insufficiency fracture of tibia: Code(s): M84.469A - Pathological fracture, unspecified tibia and fibula, initial encounter for fracture Status: Acute (2) Left knee pain: Code(s): M25.562 - Pain in left knee Status: Acute (3) Syncope: Qualifiers: Syncope type: unspecified Qualified Code(s): R55 - Syncope and collapse Code(s): R55 - Syncope and collapse Status: Acute Assessment and Plan: 01/15/21 10:29 01/14 patient is 65-year-old female with history of alcoholism presented emergency department with a complaint blacked out and fell on the right side of her hip and left knee and it was painful, to further evaluate patient had a carotid ultrasound right internal carotid artery has less than 50% stenosis however left internal carotid artery showed 50-69% stenosis in the left internal carotid artery by sonographic criteria. Will recommend maximal medical management with aspirin, will check cholesterol, and control hypertension, cardiac echo is pending, patient also had x-ray of the right hip and left knee, patient had a right hip arthroplasty x-ray did not show any changes however left knee shows possible lucency and fracture will consult orthopedic further recommendation, patient with history of alcohol abuse on CIWA protocol and will monitor for DT, once cleared by orthopedic will have a PT OT evaluate the patient. Patient with hyponatremia most likely secondary to alcohol abuse will gently hydrate with NS and limit free water intake and monitor. 01/15 patient with injury to the left knee there was a concern for possible fracture patient was seen by orthopedic surgeon and recommended conservative management with immobilized and minimum weight-bearing and using toes for ambulation, patient be seen physical therapy emergency patient clinically stable will discharge the patient, patient remains clinically stable there is no sign of DT. Patient has chronic hyponatremia due to alcohol abuse patient is recommended minimize free water intake and may salt to her diet. (4) Contusion of hip, right: Qualifiers: Encounter type: sequela Qualified Code(s): S70.01XS - Contusion of right hip, sequela Code(s): S70.01XA - Contusion of right hip, initial encounter Status: Acute Assessment and Plan: Re-x-ray right hip tomorrow she has had a right total hip replacement that hip in the past. It appears to be in place. (5) Hypomagnesemia: Code(s): E83.42 - Hypomagnesemia Status: Acute Assessment and Plan: Replace as necessary. Recheck in the morning. Most likely due to her alcoholism. (6) Anemia of chronic disease: Code(s): D63.8 - Anemia in other chronic diseases classified elsewhere Status: Acute Assessment and Plan: H&H appears to be stable. (7) Hyponatremia: Code(s): E87.1 - Hypo-osmolality and hyponatremia Status: Acute Assessment and Plan: Patient's sodium level slightly lower than what it normally is. The patient is an alcoholic. Continue to hydrate. Check her sodium tonight and again in the morning. 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
[2021-01-16 14:00] VITALS: BP 145/79; PULSE 107; RESP 20; TEMP 36.7; O2SAT 100
== END 2021-01-16 15:00 | disposition home or self-care (01) ==
LOC: ANHED 14:14 → ANH3MEDSUR 15:30
PROVIDERS: Nurse Practitioner; Admitting Provider Family Medicine; Emergency Provider Emergency Medicine; PCP Internal Medicine; Visit Provider Family Medicine
DX: M84.462A Pathological fracture, left tibia, initial encounter for fracture (principal); S70.01XA Contusion of right hip, initial encounter; R55 Syncope and collapse; D63.8 Anemia in other chronic diseases classified elsewhere; E11.9 Type 2 diabetes mellitus without complications; F10.20 Alcohol dependence, uncomplicated; E87.1 Hypo-osmolality and hyponatremia; I10 Essential (primary) hypertension; I65.22 Occlusion and stenosis of left carotid artery; M85.862 Other specified disorders of bone density and structure, left lower leg; W19.XXXA Unspecified fall, initial encounter; Y90.4 Blood alcohol level of 80-99 mg/100 ml; Z79.4 Long term (current) use of insulin; Z96.641 Presence of right artificial hip joint; Z87.891 Personal history of nicotine dependence
CPT/HCPCS: 36415; 71045; 73502; 73521; 73564; 80048; 80053; 80061; 80307; 81001; 83036; 83605; 83690; 83735; 84443; 84484; 85025; 85027; 85055; 85610; 85730; 93005; 93306; 93880; 94640; 96361; 96365; 96374; 96375; 96376; 97110; 97116; 97161; 97165; 97168; 97530; 99285; A9270; G0378; J1815; J2405; J3475; J7030

== ENCOUNTER 2021-05-24 13:41 | Outpatient (CLI) | payer MEDICARE, SELFPAY ==
[2021-05-24 14:33] LABS: Albumin Level 4.4 g/dL (3.5-5.1); Anion Gap 10 mmol/L (8-16); Blood Urea Nitrogen 13 mg/dL (7-17); Calcium 9.5 mg/dL (8.4-10.2); Carbon Dioxide 23 mmol/L (22-30); Chloride 91 mmol/L (98-107); Estimated Glomerular Filt Rate 45; Glucose 131 mg/dL (65-110); Phosphorus 3.8 mg/dL (2.5-4.5); Potassium 5.4 mmol/L (3.4-5.0); Sodium 124 mmol/L (137-145)
== END 2021-05-24 13:42 | disposition home or self-care (01) ==
PROVIDERS: PCP Internal Medicine; Visit Provider Internal Medicine Nephrology
DX: E87.1 Hypo-osmolality and hyponatremia (principal)
CPT/HCPCS: 36415; 80069

== ENCOUNTER 2021-05-30 15:35 | Emergency (ER) | payer MEDICARE, SELFPAY ==
--- NOTE | ~2021-05-30 | XR_ITS ---
EXAMINATION: XR knee LT min 4V DATE: 05/30/2021 16:30 INDICATION: Left knee pain post fall TECHNIQUE: Anteroposterior, 2 oblique and crosstable lateral views of the affected knee were obtained COMPARISON: None. FINDINGS: Comminuted intra-articular fracture of the distal left femur with V-shaped configuration with the ape x at the intercondylar notch resulting in mild separation of medial and lateral condylar fragments wh ich are both angulated mildly posteriorly relative to the femoral diaphysis. The oblique lateral side d fracture plane extends to the cortex at the distal aspect of the metaphysis. The oblique medial cece ed fracture plane extends approximately 17 cm more proximally to the medial cortex of the distal diap hysis. No evident fracture of the proximal tibia and fibula but which are suboptimally positioned wit h poor profiling of the articular surfaces which decreases sensitivity. IMPRESSION: 1. Comminuted intra-articular fracture of the distal left femur resulting in separate medial and late ral condylar fragments. Reviewed, dictated and finalized at location A. IMPRESSION: 1. Comminuted intra-articular fracture of the distal left femur resulting in se parate medial and lateral condylar fragments.
--- NOTE | ~2021-05-30 | XR_ITS ---
EXAMINATION: XR hip LT 2V w AP pelvis DATE: 05/30/2021 16:29 INDICATION: Left hip pain post fall TECHNIQUE: Anteroposterior view of the pelvis and anteroposterior, frog leg and cross-table lateral v iews of the left hip were obtained. COMPARISON: 01/14/2021 FINDINGS: No interval change in a right total hip arthroplasty with chronic fracture at the intertrochanteric a nd subtrochanteric proximal right femur. No acute fracture. Mild osteoarthritis at the left hip and b ilateral sacroiliac joints. IMPRESSION: 1. Mild left hip osteoarthritis with no acute osseous abnormality. 2. Right total hip arthroplasty with stable appearance of a chronic intratrochanteric/subtrochanteric periprosthetic fracture of the proximal right femur. Reviewed, dictated and finalized at location A. IMPRESSION: 1. Mild left hip osteoarthritis with no acute osseous abnormality. 2. Right total hip arthroplasty with stable appearance of a chronic intratrocha nteric/subtrochanteric periprosthetic fracture of the proximal right femur.
--- NOTE | ~2021-05-30 | CT_ITS ---
EXAMINATION: CT brain wo con DATE: 05/30/2021 17:00 INDICATION: Syncope TECHNIQUE: Computed tomography (CT) of the head was performed without intravenous contrast. Sagittal and coronal reconstructions were performed. The mA was adjusted according to patient size. Iterative reconstruction technique was employed. The dose-length product was 605.33 mGy-cm. COMPARISON: 08/16/2020 FINDINGS: No acute intracranial hemorrhage, acute infarction or abnormal extra axial fluid collection. There is mild to moderate scattered white matter hypoattenuation consistent with chronic small vessel ischemi c disease. Symmetric prominence of the sulci consistent with mild age-appropriate diffuse cerebral vo lume loss. Ventricles are normal and symmetric. No mass/mass effect. Changes of bilateral intraocular lens replacement. The orbits and mastoid air cells are normal. Mild mucosal thickening in the bilate ral ethmoid and right sphenoid sinuses. Intracranial calcified cerebral atherosclerosis is noted. IMPRESSION: 1. No acute intracranial process. 2. Age-related changes including mild diffuse volume loss and mild to moderate scattered white matter hypoattenuation consistent with chronic small vessel ischemic disease. Reviewed, dictated and finalized at location A. IMPRESSION: 1. No acute intracranial process. 2. Age-related changes including mild diffuse volume loss and mild to moderate scattered white matter hypoattenuation consistent with chronic small vessel isc hemic disease.
[2021-05-30 15:57] VITALS: BP 141/65; PULSE 99; RESP 16; O2SAT 100
--- NOTE | 2021-05-30 16:41 | ECG_ITS ---
Measurements Intervals Desmet Rate: 103 P: RI: 0 QRS: 65 QRSD: 78 T: 23 QT: 337 QTc: 443 Interpretive Statements SINUS OR ECTOPIC ATRIAL TACHYCARDIA LOW QRS VOLTAGE IN PRECORDIAL LEADS BASELINE ARTIFACT- I, II, III, AVR, AVL, AVF, V1-V6 ABNORMAL ECG Electronically Signed On 05-31-2021 6:09:35 CDT by Joshua Rg D.O.
--- NOTE | 2021-05-30 17:06 | ED.FALL ---
HPI - Fall General Chief Complaint: Fall Stated Complaint: fall/hip pain Time Seen by Provider: 05/30/21 16:31 History of Present Illness HPI Narrative: Presents after syncopal event. Patient reports she was walking to the restroom and then she woke up on the ground and there is urine and emesis around her. Ports she was in so much pain she was unable to move. Her family checked on her today found on the ground called the ambulance and brought her in for evaluation. Patient ports a history of hyponatremia and usually when she has episodes like this is related to her sodium. Reports her hyponatremia is unclear of etiology. Reports prior to today she was feeling well she denies any recent fevers, cough, congestion, nausea, vomiting. Reports her primary area of pain is her left knee and left hip as well as her lower back. Related Data Home Medications Medication Instructions Recorded Confirmed omeprazole magnesium [Prilosec OTC] 20 mg PO DAILY 02/09/20 05/14/21 diphenhydramine HCl 25 mg tablet 25 mg PO DAILY PRN 03/31/20 05/14/21 fluticasone propionate 1 spray INTRANASAL DAILY 08/16/20 01/20/21 calcium carbonate 500 mg PO QAM PRN 01/13/21 05/14/21 mecobalamin (vitamin B12) 1,000 1,000 mcg PO DAILY 05/13/21 05/14/21 mcg chewable tablet pyridoxine (vitamin B6) 100 mg 100 mg PO DAILY 05/13/21 05/14/21 tablet Allergies Allergy/AdvReac Type Severity Reaction Status Date / Time codeine AdvReac Unknown Headache Verified 05/30/21 17:20 Review of Systems Review of Systems: CONSTITUTIONAL: Denies fever, chills, or sweats. EYES: Denies visual changes, redness, or discharge. ENT: Denies rhinorrhea, congestion, sore throat, or otalgia. CARDIOVASCULAR: Denies chest pain, palpitations, or edema. RESPIRATORY: Denies cough or dyspnea. GASTROINTESTINAL: Denies abdominal pain, nausea, vomiting, or diarrhea. GENITOURINARY: Denies dysuria or hematuria. SKIN: Denies rash or itching. MUSCULOSKELETAL: Denies back pain, joint pain, or myalgia. NEUROLOGIC: Denies headache, numbness, dizziness, or weakness. PSYCHIATRIC: Denies anxiety or depression. All systems reviewed & are unremarkable except as noted in HPI and below PMFSH Past Medical History Medical History Alcoholic liver disease Alcoholic peripheral neuropathy BMI 30.0-30.9,adult Chronic hyponatremia Diabetes mellitus last A1c 4-29-20 5.6 Eczema GERD (gastroesophageal reflux disease) HTN (hypertension) with goal to be determined Surgical History Surgical History H/O: hysterectomy 2005 due to uterine fibroids History of bilateral cataract extraction History of lumbar surgery L1-L3 2005 History of right hip replacement 2005 Dr. Curiel in [place] Periprosthetic fracture of femur following total replacement of hip January 2020 Family History Family History Father Afib Heart attack Mother Hypertension Diabetes mellitus COPD (chronic obstructive pulmonary disease) Sibling Diabetes mellitus Amputation above knee Father , At age 50 Acute myocardial infarction Sibling , At age 50 Pancreatic cancer Social History Social History Social History: She lived in [place] until 2 years ago. she moved back up to the area to be close to her 3 remaining siblings. She used to smoke 1.5 packs of cigarettes per day but quit smoking in 2005. The patient works from home for [employer] at home on her computer. The patient is a full code. She does not list a durable power district attorney. She is from her 1st and divorce from 2nd. The patient states that she likes to drink 2 drinks a day with vodka in she said there was a shot of vodka in each drink. The patient has a master's degree in statistics. She currently lives [place]
[2021-05-30 17:25] LABS: Hematocrit 28.1 % (37.0-47.0); Hemoglobin 9.4 g/dL (12.0-15.0); Mean Corpuscular HGB Conc 33.5 g/dl (32-36); Mean Corpuscular Hemoglobin 32.4 pg (26-34); Mean Corpuscular Volume 96.9 fl (80-100); Mean Platelet Volume 10.8 fl (7.4-10.4); Platelet Count Result 159 k/mm3 (150-375); Red Cell Distribution Width 12.5 % (11.5-14.5); White Blood Count 8.2 K/mm3 (4.5-10.0)
[2021-05-30 17:35] LABS: Alanine Aminotransferase 32 U/L (4-35); Albumin Level 4.1 g/dL (3.5-5.1); Alkaline Phosphatase 291 U/L (38-126); Anion Gap 9 mmol/L (8-16); Aspartate Amino Transferase 49 U/L (14-36); Bilirubin,Total 1.2 mg/dL (0.2-1.3); Blood Urea Nitrogen 11 mg/dL (7-17); Calcium 8.8 mg/dL (8.4-10.2); Carbon Dioxide 20 mmol/L (22-30); Chloride 95 mmol/L (98-107); Creatine Kinase 146 U/L (30-135); Estimated CRCL calculation 70 ml/min; Estimated Glomerular Filt Rate > 60; Glucose 137 mg/dL (65-110); Potassium 5.2 mmol/L (3.4-5.0); Sodium 124 mmol/L (137-145)
[2021-05-30] MEDS: fentaNYL CITRATE INJ (*CRX) 100 MCG/2 ML VIAL 50 MCG IV PUSH (17:38)
[2021-05-30 17:50] LABS: Band Neutrophils Percent 2 % (0-6); Lymphocytes Absolute Manual 0.65 K/mm3 (1.1-4.5); Monocytes Absolute Manual 0.16 K/mm3 (0.1-0.90); Monocytes Percent Manual 2 % (3-9); Neutrophils Absolute Manual 7.38 K/mm3 (1.7-7.2); Neutrophils Percent Manual 88 % (46-73); Total Cells Counted 100
[2021-05-30 17:51] LABS: Platelet Estimate Adequate (Adequate)
[2021-05-30 18:22] LABS: Add Urine Microscopic? YES; Appearance Urine Cloudy (Clear); Bacteria Urine Trace /hpf; Bilirubin Urine Negative (Negative); Blood Urine 1+ (Negative); Color Urine Yellow (Yellow); Glucose Urine UA 1+ mg/dL (Negative); Ketones Urine Negative (Negative); Leukocyte Esterase Ur Negative LEU/UL (Negative); Nitrate Urine Negative (Negative); Protein Urine 2+ mg/dL (Negative); RBC Urine 0-2 /hpf (0-2); Specific Grav Ur 1.011 (1.001-1.035); Urobilinogen Urine Negative mg/dL (<2.0); WBC Urine 0-3 /hpf
[2021-05-30] MEDS: ONDANSETRON INJ 4 MG/2 ML VIAL IV PUSH (18:25)
[2021-05-30 19:13] VITALS: BP 131/53; PULSE 110; RESP 18; O2SAT 100
--- NOTE | 2021-05-30 19:49 | PC.NURSE ---
Called [facility] to request transport. declined - they have no second truck tonight. Called [facility] to request transport - accepted - ETA 20 minutes.
[2021-05-30] MEDS: MORPHINE SULFATE (*CRX) 4 MG/ML INJ IV PUSH (20:04)
[2021-05-30] MEDS: SODIUM CHLORIDE 0.9% IV 1,000 ML 999 ML IRRIGATION (20:42)
--- NOTE | 2021-05-30 20:43 | PC.NURSE ---
1000ml fluids sent with patient with [facility]
== END 2021-05-30 20:45 | disposition short-term general hospital (02) ==
PROVIDERS: Emergency Medicine; Emergency Provider Emergency Medicine; PCP Internal Medicine
DX: S72.92XA Unspecified fracture of left femur, initial encounter for closed fracture (principal); E11.9 Type 2 diabetes mellitus without complications; I10 Essential (primary) hypertension; Z87.891 Personal history of nicotine dependence; W19.XXXA Unspecified fall, initial encounter
CPT/HCPCS: 36415; 70450; 73502; 73564; 80053; 81001; 82550; 85025; 93005; 96374; 96375; 99285; J2270; J2405; J3010; J7030

== ENCOUNTER 2021-06-06 01:52 | Observation (INO) | payer MEDICARE, SELFPAY ==
[2021-06-06] VITALS (15 sets, daily range): BP systolic 105–165; BP diastolic 61–91; PULSE 96–115; RESP 14–20; TEMP 36.2–36.7; O2SAT 95–100; BMI 29.2
--- NOTE | ~2021-06-06 | XR_ITS ---
EXAMINATION: XR knee RT min 4V DATE: 06/07/2021 15:20 INDICATION: Right knee pain. TECHNIQUE: 4 views of right knee were obtained. COMPARISON: Right knee radiographs 01/15/2019 FINDINGS: Bone alignment is normal. There is an old healed fracture deformity of lateral tibial plate au with internal fixation with 2 lag screws and incongruence of the articular surface. There is moder ate osteoarthritis of lateral compartment and mild osteoarthritis of patellofemoral compartment. No k nee joint effusion. IMPRESSION: 1. Old healed fracture of lateral tibial plateau. 2. Moderate right knee osteoarthritis. Reviewed, dictated and finalized at location A.
--- NOTE | ~2021-06-06 | XR_ITS ---
XR knee LT 2V DATE: 06/06/2021 02:42 INDICATION: Pain. Recent surgery. TECHNIQUE: AP and lateral projections, 4 total views COMPARISON: 05/30/2021 left knee FINDINGS: There is a lateral plate along the distal tibial shaft, metaphysis and lateral condyle with multiple transverse interlocking screws, providing near-anatomic position and alignment at the intra -articular fracture of the distal femur. There is periosteal reaction consistent with healing. Diffuse osteopenia. No new fracture or dislocation is evident since 05/30/2021. Normal alignment at the knee joint. IMPRESSION: Internally fixated recent healing intra-articular fracture of the distal femur Prominent osteopenia No new fracture or dislocation Reviewed, dictated and finalized at location A. IMPRESSION: Internally fixated recent healing intra-articular fracture of the d istal femur Prominent osteopenia No new fracture or dislocation
--- NOTE | 2021-06-06 02:00 | PC.NURSE ---
Patient has knee immobilizer in place on her left leg, with no weight bearing.
--- NOTE | 2021-06-06 06:29 | ED.WEAKNESS ---
HPI - Weakness General Chief complaint: Weakness <Nikita Jose MD - Last Filed: 06/06/21 07:06> Stated complaint: weakness <Nikita Jose MD - Last Filed: 06/06/21 07:06> Time Seen by Provider: 06/06/21 01:55 <Nikita Jose MD - Last Filed: 06/06/21 07:06> History of Present Illness HPI Narrative: Patient is a 66-year-old female who presents ER with weakness. Patient recently underwent surgical fixation of a distal femur fracture left lower extremity after traumatic injury. She was discharged from the hospital after receiving PT OT. She reports while in the hospital she could help with transferring but now she is too weak to move around and cannot help lift her body despite family members assisting her. She feels she needs to be placed in a rehabilitation facility. No new injury to her leg. She did move that the other day and felt a popping sensation near her incision site. She has had no chest pain or chest pressure. Pain is been controlled. <Nikita Jose MD - Last Filed: 06/06/21 07:06> Related Data Home medications: Home Medications Medication Instructions Recorded Confirmed omeprazole magnesium [Prilosec OTC] 20 mg PO DAILY 02/09/20 06/06/21 diphenhydramine HCl 25 mg tablet 25 mg PO DAILY PRN 03/31/20 06/06/21 fluticasone propionate 1 spray INTRANASAL DAILY PRN 08/16/20 06/06/21 calcium carbonate 500 mg PO QAM PRN 01/13/21 06/06/21 mecobalamin (vitamin B12) 1,000 3,000 mcg PO DAILY 05/13/21 06/06/21 mcg chewable tablet pyridoxine (vitamin B6) 100 mg 100 mg PO DAILY 05/13/21 06/06/21 tablet atorvastatin 10 mg PO HS 06/06/21 06/06/21 docusate sodium 100 mg PO BID 06/06/21 06/06/21 enoxaparin 30 mg SUBCUT DAILY 06/06/21 06/06/21 ferrous sulfate 325 mg PO DAILY 06/06/21 06/06/21 insulin glargine [Lantus Solostar 11 unit SUB-Q HS 06/06/21 06/06/21 U-100 Insulin] insulin lispro [Humalog KwikPen 2 unit SUB-Q TID 06/06/21 06/06/21 Insulin] magnesium oxide 250 mg PO QAM 06/06/21 06/06/21 metoprolol succinate 12.5 mg PO DAILY 06/06/21 06/06/21 ondansetron 4 mg PO TID 06/06/21 06/06/21 oxycodone 5 mg PO Q6H PRN 06/06/21 06/06/21 polyethylene glycol 3350 17 g PO BID 06/06/21 06/06/21 sodium chloride 1 g PO TID 06/06/21 06/06/21 sodium zirconium cyclosilicate 5 g PO DAILY 06/06/21 06/06/21 <Nikita Jose MD - Last Filed: 06/06/21 07:06> Allergies/Adverse reactions: Allergies Allergy/AdvReac Type Severity Reaction Status Date / Time codeine AdvReac Unknown Headache Verified 06/06/21 02:01 <Nikita Jose MD - Last Filed: 06/06/21 07:06> Review of Systems Review of Systems: All systems reviewed & are unremarkable except as noted in HPI and below <Nikita Jose MD - Last Filed: 06/06/21 07:06> Constitutional: Constitutional: Denies chills, Denies fever(s) and Denies weakness <Nikita Jose MD - Last Filed: 06/06/21 07:06> ENT: Denies nasal congestion and Denies sore throat <Nikita Jose MD - Last Filed: 06/06/21 07:06> Cardiovascular: Cardiovascular: Denies chest pain and Denies radiating jaw, neck or arm pain <Nikita Jose MD - Last Filed: 06/06/21 07:06> Respiratory: Respiratory: Denies cough, Denies dyspnea and Denies wheezing <Nikita Jose MD - Last Filed: 06/06/21 07:06> Gastrointestinal: Gastrointestinal: Denies abdominal pain, Denies nausea and Denies vomiting <Nikita Jose MD - Last Filed: 06/06/21 07:06> Musculoskeletal: Musculoskeletal: Reports arthralgias (Postop) <Nikita Jose MD - Last Filed: 06/06/21 07:06> Neurologic: Denies focal weakness and Denies numbness <Nikita Jose MD - Last Filed: 06/06/21 07:06> [facility] Past Medical History Medical History: Medical History (Updated 06/06/21 @ 18:36 by Kavita Thomas MD) Alcohol abuse Alcoholic cirrhosis of liver Alcoholic peripheral neuropathy Chronic anemia Chronic hyponatremia Diastolic dysfunction Echocardiogram
[2021-06-06] MEDS: ENOXAPARIN 30 MG/0.3 ML SYRINGE SUB-Q (08:41)
[2021-06-06] MEDS: oxyCODONE HCL (*CRX) 5 MG TAB IR 1 MG PO (08:42)
--- NOTE | 2021-06-06 10:57 | ECG_ITS ---
Measurements Intervals [place] Rate: 0 P: ME: 0 QRS: QRSD: 0 T: QT: 0 QTc: 0 Interpretive Statements SINUS TACHYCARDIA BORDERLINE T WAVE ABNORMALITY- INFERIOR LEADS BASELINE ARTIFACT- I, II, III, AVR, AVL, AVF, V1, V3-V6 ABNORMAL ECG Electronically Signed On 06-06-2021 13:30:05 CDT by Joshua Rg D.O.
[2021-06-06 11:58] LABS: Glucose Point of Care 103 mg/dl (65-105)
[2021-06-06 12:15] LABS: Basophils Percent Auto 0.6 % (0.2-1.2); Eosinophils Absolute Auto 0.3 K/mm3 (0-0.3); Hematocrit 25.7 % (37.0-47.0); Hemoglobin 8.6 g/dL (12.0-15.0); Immature Granulocyte Absolute 0.15 K/mm3 (0.00-0.031); Immature Granulocyte Percent A 2.9 % (0-0.5); Lymphocytes Absolute Auto 0.74 K/mm3 (0.9-3.2); Lymphocytes Percent Auto 14.3 % (18.3-44.2); Mean Corpuscular HGB Conc 33.5 g/dl (32-36); Mean Corpuscular Hemoglobin 33.5 pg (26-34); Mean Platelet Volume 10.2 fl (7.4-10.4); Monocytes Absolute Auto 0.9 K/mm3 (0.1-0.6); Monocytes Percent Auto 16.6 % (2.6-8.5); Neutrophils Absolute Auto 3.1 K/mm3 (1.3-6.7); Neutrophils Percent Auto 59.6 % (45.5-73.1); Platelet Count Result 194 k/mm3 (150-375); Red Blood Count 2.57 M/mm3 (4.2-5.4); White Blood Count 5.2 K/mm3 (4.5-10.0)
[2021-06-06 12:29] LABS: Alanine Aminotransferase 26 U/L (4-35); Albumin Level 3.5 g/dL (3.5-5.1); Alkaline Phosphatase 295 U/L (38-126); Anion Gap 6 mmol/L (8-16); Aspartate Amino Transferase 51 U/L (14-36); Bilirubin,Total 1.7 mg/dL (0.2-1.3); Blood Urea Nitrogen 11 mg/dL (7-17); Calcium 8.9 mg/dL (8.4-10.2); Carbon Dioxide 26 mmol/L (22-30); Chloride 99 mmol/L (98-107); Estimated Glomerular Filt Rate 55; Glucose 108 mg/dL (65-110); Potassium 4.3 mmol/L (3.4-5.0); Sodium 131 mmol/L (137-145)
--- NOTE | 2021-06-06 13:25 | PC.NURSE ---
food tray ordered for lunch
[2021-06-06 13:47] LABS: Add Urine Microscopic? YES; Appearance Urine Clear (Clear); Bilirubin Urine Negative (Negative); Blood Urine Negative (Negative); Color Urine Yellow (Yellow); Glucose Urine UA Negative (Negative); Ketones Urine Trace mg/dL (Negative); Leukocyte Esterase Ur Negative LEU/UL (Negative); Nitrate Urine Negative (Negative); Protein Urine Negative (Negative); Specific Grav Ur 1.005 (1.001-1.035); Squamous Epithelial Cell Urine Occasional /hpf (Few); WBC Urine 0-3 /hpf
--- NOTE | 2021-06-06 14:15 | PM.IMHP ---
H&P: HPI History of Present Illness Date/Time: 06/06/21 14:15 Chief Complaint: Weakness and difficulties caring for self after recent femur fracture and surgery. Narrative: This is a 66-year-old female with hypertension and history orthostatic hypotension, chronic hyponatremia, and insulin-dependent diabetes who presented to the emergency department earlier this morning via EMS from home with reports of weakness and difficulties caring for herself after being discharged from the hospital 2 days ago. She was seen in our emergency department on the afternoon of 05/30/2021 for evaluation of left leg pain after a fall attributed to a syncopal event and she was found to have a comminuted intra-articular fracture of the distal left femur resulting in separate medial and lateral condylar fragment. She was transferred to [facility] where she underwent open reduction internal fixation. She participated in PT/OT and thought that she would be able to go home where her mother and brother have been landing a hand. Unfortunately she has not been able to perform the necessary activities of daily living despite help as she is nonweightbearing on that left leg and she is unable to bend the knee. This morning she was trying to transfer to the [facility] and she reports that her left leg ?gave out? and she did land with some weight on the leg. Her knee also bent somewhat and she thought she heard a ?pop.? She now realizes that she probably needs rehab before returning home. She has no specific complaints at this time and specifically denies headache, fever, chills, sweats, cold and flu symptoms, chest pain, shortness of breath, nausea, vomiting, diarrhea, and dysuria. Review of Systems Review of Systems: Twelve systems were reviewed with pertinent positives and negatives as per HPI. No current lightheadedness or dizziness. No sinus congestion, rhinorrhea, otalgia, or odynophagia. She denies cough and shortness of breath. She had a normal bowel movement yesterday and is not noticed any constipation with the opiates. She has not had chest pain or pleuritic pain. No history of venous thromboembolism. Her diabetes is well controlled, and in fact she thinks perhaps it is too well controlled as her most recent hemoglobin A1c was less than 5.5. Her fasting glucose is typically around 80 but usually not more than 125. While at [facility] they did decrease her Lantus from 25 units to 10 units and she seems to be doing fine with that. No blurry vision, polydipsia, or polyuria. The patient does have a history of daily alcohol consumption but has cut back to drinking 2 mixed drinks a night, several days a week. She has never had signs or symptoms of alcohol withdrawal. No history of seizure. Except as documented, all other systems were reviewed and are negative. [facility] Past Medical History Medical History (Updated 06/06/21 @ 22:00 by Roxane Rivas PA-C) Alcohol abuse Alcoholic cirrhosis of liver Chronic anemia Chronic hyponatremia Diastolic dysfunction Echocardiogram on 01/14/2021 showed normal left ventricular systolic function with an estimated EF of 60 to 65% as well as grade 1 diastolic dysfunction. Eczema Gastroesophageal reflux disease Hypertension Insulin dependent type 2 diabetes mellitus Hemoglobin A1c was 5.4% on 01/14/2021. Left-sided carotid artery disease Carotid Doppler ultrasound on 01/14/2021 showed 50 to 69% stenosis in the left internal carotid artery. Orthostatic hypotension An ongoing issue for the patient. She has had several syncopal episodes over the years leading to falls and fractures. Periprosthetic fracture of femur following total replacement of hip (01/2020) Non operative treatment. Surgical History Surgical History History of bilateral cataract extraction History of hysterectomy (2005) Due to uterine fibroids and endometriosis. History of lumbar surger
--- NOTE | 2021-06-06 15:29 | ADMGEN ---
This patient, Lou Islas, was admitted to Medical Room 343-01. Patient/family oriented to hospital policies and general routines including ID bracelet, bed and alarms, visiting hours, pain management, procedures, bathroom and other care routines, personal items, smoking policy, room service/diet, and visiting hours. Information on how to activate the Rapid Response Team has been discussed. Patient/Family are encouraged to report perceived risks to care and to ask questions if they do not understand what they are told or what they should do.
[2021-06-06 16:35] LABS: Immature Reticulocyte Fraction 20.8 % (3.0-15.9); Reticulocyte Hemoglobin Conten 39.3 pg (28.2-35.7); Reticulocytes Absolute 0.16 B/L (32.2-175.7)
[2021-06-06 16:45] LABS: INR 1.1; Prothrombin Time 14.1 Seconds (11.1-14.7)
[2021-06-06 16:46] LABS: Partial Thromboplastin Time 35.5 SECONDS (22.3-36.8)
[2021-06-06 16:49] LABS: Magnesium 1.2 mg/dL (1.6-2.3)
[2021-06-06 16:50] LABS: Iron 46 ug/dL (37-170)
[2021-06-06] MEDS: DOCUSATE SODIUM 100 MG CAPSULE PO (16:55)
[2021-06-06] MEDS: SODIUM CHLORIDE 1 GM TABLET PO (16:56)
[2021-06-06] MEDS: oxyCODONE HCL (*CRX) 5 MG TAB IR PO ×2 (16:59→23:42)
[2021-06-06 17:01] LABS: Percent Iron Saturation 19 % (20-50)
[2021-06-06 17:10] LABS: Glucose Point of Care 126 mg/dl (65-105)
[2021-06-06 18:00] LABS: Folic Acid 18.3 ng/mL (2.76->20); Vitamin B12 > 1000.0 pg/mL (239-931)
[2021-06-06] MEDS: ATORVASTATIN 10 MG TABLET PO (20:33)
[2021-06-06] MEDS: INSULIN GLARGINE (*BKC) 100 UNITS/ML 11 UNITS SUB-Q (20:33)
[2021-06-06] MEDS: oxyCODONE HCL (*CRX) 5 MG TAB IR 10 MG PO (20:34)
[2021-06-06 20:41] LABS: Glucose Point of Care 134 mg/dl (65-105)
[2021-06-06] MEDS: MAGNESIUM SULF 2 GM/WATER 50ML 2 GM/50 ML BAG IVPB (22:53)
[2021-06-07] VITALS (11 sets, daily range): BP systolic 104–144; BP diastolic 47–71; PULSE 92–96; RESP 16–18; TEMP 35.8–36.3; O2SAT 97–100
[2021-06-07 05:41] LABS: Hematocrit 24.6 % (37.0-47.0); Hemoglobin 7.9 g/dL (12.0-15.0); Mean Corpuscular HGB Conc 32.1 g/dl (32-36); Mean Corpuscular Hemoglobin 32.5 pg (26-34); Mean Corpuscular Volume 101.2 fl (80-100); Mean Platelet Volume 9.6 fl (7.4-10.4); Platelet Count Result 212 k/mm3 (150-375); Red Blood Count 2.43 M/mm3 (4.2-5.4); Red Cell Distribution Width 14.1 % (11.5-14.5); White Blood Count 5.9 K/mm3 (4.5-10.0)
[2021-06-07 05:56] LABS: Alanine Aminotransferase 28 U/L (4-35); Albumin Level 3.2 g/dL (3.5-5.1); Alkaline Phosphatase 290 U/L (38-126); Anion Gap 7 mmol/L (8-16); Aspartate Amino Transferase 52 U/L (14-36); Bilirubin,Total 1.4 mg/dL (0.2-1.3); Blood Urea Nitrogen 12 mg/dL (7-17); Calcium 8.7 mg/dL (8.4-10.2); Carbon Dioxide 25 mmol/L (22-30); Chloride 95 mmol/L (98-107); Estimated CRCL calculation 50 ml/min; Estimated Glomerular Filt Rate 55; Glucose 88 mg/dL (65-110); Magnesium 1.7 mg/dL (1.6-2.3); Potassium 3.9 mmol/L (3.4-5.0); Sodium 127 mmol/L (137-145)
[2021-06-07] MEDS: oxyCODONE HCL (*CRX) 5 MG TAB IR 10 MG PO (06:23)
[2021-06-07] MEDS: CALCIUM CARBONATE (TUMS) 500 MG (200 MG ELEMENTAL) PO (06:48)
[2021-06-07 07:39] LABS: Glucose Point of Care 96 mg/dl (65-105)
[2021-06-07] MEDS: FERROUS SULFATE 324 MG TABLET PO (08:31)
[2021-06-07] MEDS: ASPIRIN 81 MG ENTERIC TABLET PO (08:31)
[2021-06-07] MEDS: ENOXAPARIN 30 MG/0.3 ML SYRINGE SUB-Q (08:31)
[2021-06-07] MEDS: DOCUSATE SODIUM 100 MG CAPSULE PO ×2 (08:31→16:52)
[2021-06-07] MEDS: FOLIC ACID 1 MG TABLET PO (08:32)
[2021-06-07] MEDS: METOPROLOL SUCCINATE EXT REL 12.5 MG TABCR PO (08:32)
[2021-06-07] MEDS: THERAPEUTIC MULTIVITAMINS/MINERALS TAB (*BKC) 1 TABLET PO (08:32)
[2021-06-07] MEDS: MAGNESIUM OXIDE 400 MG TABLET PO (08:32)
[2021-06-07] MEDS: THIAMINE HCL 100 MG TABLET PO (08:33)
[2021-06-07] MEDS: PYRIDOXINE HCL 50 MG TABLET 100 MG PO (08:33)
[2021-06-07] MEDS: SODIUM CHLORIDE 1 GM TABLET PO ×3 (08:33→16:52)
[2021-06-07] MEDS: polyethylene glycoL 3350 17 GM POWD.PACK PO ×2 (08:33→16:52)
[2021-06-07] MEDS: PANTOPRAZOLE 40 MG TABLET PO (08:33)
[2021-06-07] MEDS: ONDANSETRON INJ 4 MG/2 ML VIAL IV PUSH (08:41)
[2021-06-07 11:55] LABS: Glucose Point of Care 162 mg/dl (65-105)
[2021-06-07] MEDS: oxyCODONE HCL (*CRX) 5 MG TAB IR PO (13:49)
--- NOTE | 2021-06-07 15:14 | WPDCN ---
Assessment and Plan Assessment and plan (1) S/P ORIF (open reduction internal fixation) fracture: Code(s): Z98.890 - Other specified postprocedural states; Z87.81 - Personal history of (healed) traumatic fracture Status: Acute Assessment and Plan: NWB by [facility] Ortho. Patient will require PTOT. Lovenox for one month (2) Alcoholic cirrhosis of liver: Code(s): K70.30 - Alcoholic cirrhosis of liver without ascites Status: Acute Assessment and Plan: monitor, B6, B12, Folic acid (3) Generalized weakness: Code(s): R53.1 - Weakness Status: Acute Assessment and Plan: PTOT (4) Fracture of distal end of left femur: Code(s): S72.402A - Unspecified fracture of lower end of left femur, initial encounter for closed fracture Status: Acute Assessment and Plan: NWB per [facility], Lovenox PPX (5) Chronic anemia: Code(s): D64.9 - Anemia, unspecified Status: Acute Assessment and Plan: monitor, (6) Orthostatic hypotension: Code(s): I95.1 - Orthostatic hypotension Status: Acute Assessment and Plan: BP meds have been adjusted at [facility] (7) Alcohol abuse: Code(s): F10.10 - Alcohol abuse, uncomplicated Status: Acute Assessment and Plan: monitor, B 6 and 12 Foloic acid (8) Insulin dependent type 2 diabetes mellitus: Code(s): E11.9 - Type 2 diabetes mellitus without complications; Z79.4 - assisted (current) use of insulin Status: Acute Assessment and Plan: Insulin has been adjusted. Lantus [address] [facility] with meals. (9) Gastroesophageal reflux disease: Code(s): K21.9 - Gastro-esophageal reflux disease without esophagitis Status: Acute Assessment and Plan: Pantoprazole (10) Hypertension: Code(s): I10 - Essential (primary) hypertension Status: Acute Assessment and Plan: Metoprolol 12.5 BID ( dose has been decreased and Lisinopril discontinued) (11) Fall: Qualifiers: Encounter type: initial encounter Qualified Code(s): W19.XXXA - Unspecified fall, initial encounter Code(s): W19.XXXA - Unspecified fall, initial encounter Status: Acute Assessment and Plan: Fall prevention per OTOT (12) Hyponatremia: Code(s): E87.1 - Hypo-osmolality and hyponatremia Status: Acute Assessment and Plan: salt tablets (13) Insufficiency fracture of tibia: Code(s): M84.469A - Pathological fracture, unspecified tibia and fibula, initial encounter for fracture Status: Acute (14) Alcoholic peripheral neuropathy: Code(s): G62.1 - Alcoholic polyneuropathy Status: Acute Assessment and Plan: monitor (15) Carotid artery disease: Code(s): I77.9 - Disorder of arteries and arterioles, unspecified Status: Acute Assessment and Plan: statin, ASA Additional Plan Patient with recent left femur fx who was transferred from [place] to [facility]. Patient underwent surgery on 06/01/21 TTWB. She was discharged on 06/04/21 home. Patient admits that she was doing well at [facility] and felt as though she could return home. Unfortunately, patient struggled at home and had suffered a fall. Patient presented to ED at [facility] and was admitted to observation. Patient is currently at [facility] transfers. Patient complains of right knee pain. I have spoken with Dr Yang to investigate right knee pain. Consider xray. Patient may be a rehab candidate if knee pain is better and patient able to participate in OTPT. I will continue to follow and advise. Of note, patient was a prior rehab patient following her left hip surgery. She completed the program and returned home safely .She has w/c, walker, cane HPI Data of Consult Date/Time: 06/07/21 15:14 Requesting Physician: Robles Hernandez MD Primary Care Provider: Dariel Horvath DO Consult Narrative Narrative: Sera
--- NOTE | 2021-06-07 16:08 | PM.IMPN ---
Progress Note: A&P Assessment and Plan (1) Fracture of distal end of left femur: Code(s): S72.402A - Unspecified fracture of lower end of left femur, initial encounter for closed fracture Status: Acute Assessment and Plan: Status post ORIF intra-articular fracture of the distal left femur on 05/31/2021 at [facility]. Surgical site looks good without evidence of infection. Continue nonweightbearing status. PT/OT consulted. Rehab consulted. (2) Right knee pain: Code(s): M25.561 - Pain in right knee Status: Acute Assessment and Plan: new since yesterday - stabbing type pain when standing on right knee, normal physical exam x rays showed only osteoarthritis, no other cuse for pain patient describes stabbing type pain when bearing weight on rt knee consider MRI if not improving ad ck normal, as appears to be soft tissue in origin (3) Generalized weakness: Code(s): R53.1 - Weakness Status: Acute Assessment and Plan: Patient was recently discharged from [facility] after having the above fracture fixed and initially she thought she would be able to take care of herself at home but is realizing that she is having difficulties with her activities of daily living. She lives alone and has no children and her 3 siblings who live nearby do not feel like they are capable of helping her at this time. (4) Chronic anemia: Code(s): D64.9 - Anemia, unspecified Status: Acute Assessment and Plan: Patient has chronic anemia however her numbers are a bit lower than it looks like she typically runs, likely postoperative anemia. No indication for transfusion at this time. Continue iron supplementation. Monitor. (5) Alcohol abuse: Code(s): F10.10 - Alcohol abuse, uncomplicated Status: Acute Assessment and Plan: The patient drinks 2 mixed drinks a night though she has cut back. Denies ever having signs or symptoms of alcohol withdrawal. Will initiate CIWA protocol, however. (6) Alcoholic cirrhosis of liver: Code(s): K70.30 - Alcoholic cirrhosis of liver without ascites Status: Acute Assessment and Plan: No acute issues. (7) Hypertension: Code(s): I10 - Essential (primary) hypertension Status: Acute Assessment and Plan: Blood pressures were reviewed and they are reasonably well controlled. Continue losartan and metoprolol. Subjective Date/time seen: 06/07/21 16:08 rt knee pain - only when weight bearing back rash, itchy, not painful Review of Systems Review of Systems: All systems reviewed & are unremarkable except as noted in HPI and below Exam Neck: Neck: no JVD Resp: Effort & Inspection: normal respiratory effort Auscultation: clear to auscultation bilaterally Cardio: Rhythm: regular rhythm GI: GI Palp: Yes Soft to palpation, No Firmness to palpation present (GI) and No Tenderness to palpation present (GI) Extrem: Other: Rt knee pain, soft tissue, no pain on palpation Objective Data Vital Signs Vital Signs: Vital Signs - 24 hr 06/06/21 20:22 06/07/21 06:19 06/07/21 08:00 Temperature 97.1 F L 97.4 F L Pulse Rate 103 H 96 Respiratory Rate 16 16 Blood Pressure 125/61 144/71 H 144/71 H Pulse Oximetry 99 97 06/07/21 08:32 06/07/21 11:00 06/07/21 11:05 Temperature Pulse Rate 96 Respiratory Rate Blood Pressure 113/53 L 126/68 Pulse Oximetry 06/07/21 12:00 06/07/21 14:00 Temperature 96.5 F L Pulse Rate 96 Respiratory Rate 18 Blood Pressure 144/71 H 126/61 Pulse Oximetry 100 Intake/Output Intake/Output: Intake & Output 06/04/21 06/05/21 06/06/21 06/07/21 23:59 23:59 23:59 23:59 Intake Total 170 880 Output Total 500 250 Balance -330 630 Meds/Results Medications: Active Medications Generic Name Dose Route Start Last Admin Trade Name Joséq PRN Reason Stop Dose Admin Aspirin 81 mg 06/07
[2021-06-07 16:59] LABS: Glucose Point of Care 154 mg/dl (65-105)
[2021-06-07 17:33] LABS: Creatine Kinase 57 U/L (30-135)
[2021-06-07] MEDS: INSULIN GLARGINE (*BKC) 100 UNITS/ML 11 UNITS SUB-Q (21:27)
[2021-06-07] MEDS: ATORVASTATIN 10 MG TABLET PO (21:29)
[2021-06-07 21:59] LABS: Glucose Point of Care 183 mg/dl (65-105)
[2021-06-08] VITALS (7 sets, daily range): BP systolic 130–170; BP diastolic 60–87; PULSE 82–98; RESP 18; TEMP 36.1–36.2; O2SAT 100
[2021-06-08 06:11] LABS: Basophils Percent Auto 0.6 % (0.2-1.2); Eosinophils Absolute Auto 0.3 K/mm3 (0-0.3); Eosinophils Percent Auto 6.6 % (0-4.4); Hematocrit 23.8 % (37.0-47.0); Hemoglobin 7.5 g/dL (12.0-15.0); Immature Granulocyte Absolute 0.11 K/mm3 (0.00-0.031); Immature Granulocyte Percent A 2.4 % (0-0.5); Lymphocytes Absolute Auto 0.75 K/mm3 (0.9-3.2); Mean Corpuscular HGB Conc 31.5 g/dl (32-36); Mean Corpuscular Hemoglobin 32.3 pg (26-34); Mean Corpuscular Volume 102.6 fl (80-100); Mean Platelet Volume 10.2 fl (7.4-10.4); Monocytes Absolute Auto 0.9 K/mm3 (0.1-0.6); Monocytes Percent Auto 18.4 % (2.6-8.5); Neutrophils Absolute Auto 2.6 K/mm3 (1.3-6.7); Platelet Count Result 215 k/mm3 (150-375); Red Blood Count 2.32 M/mm3 (4.2-5.4); Red Cell Distribution Width 13.8 % (11.5-14.5); White Blood Count 4.7 K/mm3 (4.5-10.0)
[2021-06-08 06:17] LABS: Alanine Aminotransferase 32 U/L (4-35); Alkaline Phosphatase 296 U/L (38-126); Anion Gap 5 mmol/L (8-16); Aspartate Amino Transferase 50 U/L (14-36); Bilirubin,Total 1.4 mg/dL (0.2-1.3); Blood Urea Nitrogen 10 mg/dL (7-17); Calcium 8.3 mg/dL (8.4-10.2); Carbon Dioxide 25 mmol/L (22-30); Chloride 96 mmol/L (98-107); Estimated CRCL calculation 52 ml/min; Estimated Glomerular Filt Rate 55; Glucose 195 mg/dL (65-110); Magnesium 1.6 mg/dL (1.6-2.3); Phosphorus 3.7 mg/dL (2.5-4.5); Potassium 4.1 mmol/L (3.4-5.0); Sodium 126 mmol/L (137-145)
[2021-06-08 07:41] LABS: Glucose Point of Care 143 mg/dl (65-105)
[2021-06-08] MEDS: THIAMINE HCL 100 MG TABLET PO (08:08)
[2021-06-08] MEDS: PANTOPRAZOLE 40 MG TABLET PO (08:08)
[2021-06-08] MEDS: THERAPEUTIC MULTIVITAMINS/MINERALS TAB (*BKC) 1 TABLET PO (08:08)
[2021-06-08] MEDS: FERROUS SULFATE 324 MG TABLET PO (08:09)
[2021-06-08] MEDS: MAGNESIUM OXIDE 400 MG TABLET PO (08:09)
[2021-06-08] MEDS: SODIUM CHLORIDE 1 GM TABLET PO ×3 (08:09→17:19)
[2021-06-08] MEDS: PYRIDOXINE HCL 50 MG TABLET 100 MG PO (08:09)
[2021-06-08] MEDS: METOPROLOL SUCCINATE EXT REL 12.5 MG TABCR PO (08:10)
[2021-06-08] MEDS: ASPIRIN 81 MG ENTERIC TABLET PO (08:10)
[2021-06-08] MEDS: FOLIC ACID 1 MG TABLET PO (08:10)
[2021-06-08] MEDS: ENOXAPARIN 30 MG/0.3 ML SYRINGE SUB-Q (08:10)
[2021-06-08] MEDS: ONDANSETRON INJ 4 MG/2 ML VIAL IV PUSH (08:13)
[2021-06-08 11:13] LABS: Glucose Point of Care 140 mg/dl (65-105)
[2021-06-08] MEDS: oxyCODONE HCL (*CRX) 5 MG TAB IR PO (15:01)
[2021-06-08 15:04] LABS: EDCOVIDSCREEN Negative (Negative)
--- NOTE | 2021-06-08 18:10 | PM.DS ---
DS: Admitting Diagnosis Discharge Date 06/08/21 Admitting Diagnosis Weakness and difficulty caring for herself DS: Discharge Diagnosis Discharge Diagnosis (1) Fracture of distal end of left femur: Code(s): S72.402A - Unspecified fracture of lower end of left femur, initial encounter for closed fracture Status: Acute DS: Summary Hospital Course Hospital Course: 66-year-old lady with history of hypertension and orthostatic hypotension and chronic hyponatremia and insulin-dependent diabetes presenting to [facility] from home via EMS complaining of weakness and difficulty caring for herself after being discharged from the hospital 2 days prior following a left femur fracture and surgery. She had been treated at [facility] for open reduction of internal fixation. She participated in physical and occupational therapy and thought should be able to go home, however has found that this is not realistic, and and realize she probably needed to go to rehab. Surgical site healing well. Continues to have weakness, but is able to work with physical and occupational therapy. Evaluated by rehab physician, accepted at their facility. Discharge with instructions for appropriate medication, including anticoagulation and pain management.Also given instructions for follow-up outpatient following discharge. Status at Discharge Functional status at discharge: uses cane/walker Overall status at discharge: patient is progressing back to baseline Time Spent with Patient Time attestation: Total time spent providing and/or coordinating discharge services: Time spent: Less than 30 minutes Exam Const: General: no acute distress Neck: Neck: no JVD Resp: Effort & Inspection: normal respiratory effort Auscultation: clear to auscultation bilaterally Cardio: Rate: regular rate Rhythm: regular rhythm GI: GI Palp: Yes Soft to palpation and No Tenderness to palpation present (GI) Extrem: Other: Left lower extremity weakness compared to right, however still has preserved sensation and motor function Discharge Plan Discharge Attending physician on discharge: Pedro Clinton Consulting providers: Verona Galloway ; Roxane Rivas ; Joshua Rg ; Reuben Hargrove ; Koby Malin V. Discharging Clinician: Pedro Clinton Patient Disposition: Inpatient Rehab Facility Activity: no straining, no driving, as tolerated and follow weight bearing status Diet: heart healthy Patient Instructions: Hypotension (DC) Stand Alone Forms: General Discharge Information Follow-up/Referrals: Dariel Horvath, DO [Primary Care Provider] - Call for Appointment Discharge Medications: Continued diphenhydramine HCl [Benadryl Allergy] 25 mg tablet 25 mg PO DAILY PRN (Reason: Allergy Symptoms) RF: 0 pyridoxine (vitamin B6) 100 mg tablet 100 mg PO DAILY RF: 0 mecobalamin (vitamin B12) 1,000 mcg tablet,chewable 3,000 mcg PO DAILY RF: 0 fluticasone propionate 50 mcg/actuation Wilkinson,Suspension 1 spray INTRANASAL DAILY PRN (Reason: allergies) RF: 0 thiamine HCl (vitamin B1) [Vitamin B-1] 100 mg Tablet 100 mg PO QAM Qty: 30 RF: 0 polyethylene glycol 3350 17 gram Powder In Packet 17 g PO BID RF: 0 ferrous sulfate 325 mg (65 mg iron) Tablet 325 mg PO DAILY RF: 0 docusate sodium 100 mg Capsule 100 mg PO BID RF: 0 oxycodone 5 mg Tablet 5 mg PO Q6H PRN (Reason: Pain) RF: 0 sodium zirconium cyclosilicate 5 gram Powder In Packet 5 g PO DAILY RF: 0 atorvastatin 10 mg tablet 10 mg PO QAM RF: 0 sodium chloride 1 gram tablet 1 g PO QAM RF: 0 magnesium oxide 400 mg (241.3 mg magnesium) tablet 250 mg PO QAM RF: 0 metoprolol succinate 25 mg tablet extended release 24 hr 12.5 mg PO DAILY RF: 0 insulin lispro [Humalog KwikPen Insulin] 100 unit/mL insulin pen 2 unit SUB-Q TID RF: 0 Lantus Solostar U-100 Insulin 100 unit/mL (3 mL) insulin pen 11 unit SUB-
[2021-06-08 18:21] LABS: Glucose Point of Care 190 mg/dl (65-105)
[2021-06-08] MEDS: INSULIN GLARGINE (*BKC) 100 UNITS/ML 11 UNITS SUB-Q (20:16)
[2021-06-08] MEDS: ATORVASTATIN 10 MG TABLET PO (20:16)
[2021-06-08 20:38] LABS: Glucose Point of Care 169 mg/dl (65-105)
== END 2021-06-08 22:54 ==
LOC: ANHED 13:36 → ANH3MED 18:36
PROVIDERS: Physician Assistant; Admitting Provider Internal Medicine Nephrology; Emergency Provider General Practice; PCP Internal Medicine; Visit Provider Internal Medicine
DX: S72.402D Unspecified fracture of lower end of left femur, subsequent encounter for closed fracture with routine healing (principal); R53.1 Weakness; I10 Essential (primary) hypertension; E87.1 Hypo-osmolality and hyponatremia; E11.9 Type 2 diabetes mellitus without complications; Z79.4 Long term (current) use of insulin; D64.9 Anemia, unspecified; F10.10 Alcohol abuse, uncomplicated; K70.30 Alcoholic cirrhosis of liver without ascites; W19.XXXD Unspecified fall, subsequent encounter; Z96.641 Presence of right artificial hip joint; Z20.822 Contact with and (suspected) exposure to COVID-19
CPT/HCPCS: 36415; 73560; 73564; 80053; 81001; 82550; 82607; 82728; 82746; 82948; 83540; 83550; 83735; 84100; 84443; 85025; 85027; 85046; 85610; 85730; 87426; 93005; 96365; 96372; 96375; 96376; 97110; 97161; 97165; 97530; 99285; A9270; C9803; G0378; J1650; J1815; J2405; J3475

== ENCOUNTER 2021-07-16 11:26 | Outpatient (NON) | payer MEDICARE, SELFPAY ==
[2021-07-16 11:48] LABS: Hematocrit 30.3 % (37.0-47.0); Hemoglobin 10.1 g/dL (12.0-15.0); Immature Reticulocyte Fraction 8.9 % (3.0-15.9); Mean Corpuscular HGB Conc 33.3 g/dl (32-36); Mean Corpuscular Hemoglobin 32.2 pg (26-34); Mean Corpuscular Volume 96.5 fl (80-100); Mean Platelet Volume 11.8 fl (7.4-10.4); Platelet Count Result 182 k/mm3 (150-375); Red Blood Count 3.14 M/mm3 (4.2-5.4); Red Cell Distribution Width 12.3 % (11.5-14.5); Reticulocyte Percent 2.75 % (0.7-4.3); Reticulocytes Absolute 0.09 B/L (32.2-175.7); White Blood Count 5.8 K/mm3 (4.5-10.0)
[2021-07-16 12:11] LABS: Alanine Aminotransferase 19 U/L (4-35); Alkaline Phosphatase 299 U/L (38-126); Anion Gap 9 mmol/L (8-16); Aspartate Amino Transferase 35 U/L (14-36); Bilirubin,Total 0.7 mg/dL (0.2-1.3); Blood Urea Nitrogen 10 mg/dL (7-17); Calcium 8.9 mg/dL (8.4-10.2); Carbon Dioxide 26 mmol/L (22-30); Chloride 96 mmol/L (98-107); Estimated Glomerular Filt Rate > 60; Glucose 135 mg/dL (65-110); Potassium 4.7 mmol/L (3.4-5.0); Sodium 131 mmol/L (137-145)
[2021-07-16 12:59] LABS: Iron 48 ug/dL (37-170)
[2021-07-16 13:10] LABS: Percent Iron Saturation 21 % (20-50)
[2021-07-23 22:16] LABS: Mitochondrial (M2) Ab (IgG) <=20.0 U (<=20.0)
== END 2021-07-16 11:27 | disposition home or self-care (01) ==
PROVIDERS: PCP Physician Assistant; Visit Provider Internal Medicine
DX: D64.9 Anemia, unspecified (principal); E11.9 Type 2 diabetes mellitus without complications; E87.1 Hypo-osmolality and hyponatremia; I10 Essential (primary) hypertension
CPT/HCPCS: 80053; 82728; 83520; 83540; 83550; 85027; 85046

== ENCOUNTER 2021-10-19 12:31 | Outpatient (CLI) | payer MEDICARE, SELFPAY ==
--- NOTE | 2021-10-19 12:44 | ECHO_ITS ---
Patient Info Name: Lou Islas Age: 66 years : 1955 Gender: Female Ht: 65 in Wt: 185 lbs BSA: 1.99 m2 HR: 81 bpm BP: 147 / 80 mmHg Heart Rhythm: Sinus Rhythm Technical Quality: Fair Exam Date: 10/19/2021 1:03 PM Exam Location: [facility] Pulmonary Patient Status: Outpatient Admit Date: 10/19/2021 Staff Ordering Physician: Ramesh Smith PA-C Jelly Filter Tender: Isela Kahn RDCS Attending Provider: Ramesh Smith PA-C Referring Physician: Sarah WYNNE; Exam Type: CA echo doppler color flow Study Info Indications R60.0 - Localized edema Complete two-dimensional, color flow and Doppler transthoracic echocardiogram is performed. Summary 1. Complete two-dimensional, color flow and Doppler transthoracic echocardiogram is performed. 2. Left ventricular chamber dimension is normal. 3. Left ventricular systolic function is normal, estimated at 60-65%. 4. The left ventricular diastolic function is abnormal. 5. E/e' 29 is elevated. 6. Left atrial chamber dimension is moderately enlarged. 7. There is mild aortic valve sclerosis. 8. There is mild aortic valve regurgitation. 9. The mitral valve has moderately calcified annulus. 10. There is mild to moderate mitral valve regurgitation. 11. There is mild tricuspid valve regurgitation. 12. Severe pulmonary hypertension, estimated pulmonary arterial systolic pressure is 71 mmHg. 13. There is trace pulmonic regurgitation. 14. There is trivial pericardial effusion. Left Ventricle E/e' 29 is elevated. Left ventricular chamber dimension is normal. Left ventricular systolic function is normal, estimated at 60-65%. The left ventricular diastolic function is abnormal. Right Ventricle Right ventricular systolic function is normal and with normal TAPSE 1.7 cm.. Right ventricular chamber dimension is normal. Left Atria Left atrial chamber dimension is moderately enlarged. Right Atria Right atrial chamber dimension is normal. Aortic Valve The aortic valve is trileaflet. There is mild aortic valve sclerosis. There is no aortic valve stenosis. There is mild aortic valve regurgitation. Pulmonic Valve There is trace pulmonic regurgitation. Mitral Valve The mitral valve has moderately calcified annulus. There is no mitral valve stenosis. There is mild to moderate mitral valve regurgitation. Tricuspid Valve There is mild tricuspid valve regurgitation. Severe pulmonary hypertension, estimated pulmonary arterial systolic pressure is 71 mmHg. Pericardium/Pleural There is trivial pericardial effusion. Inferior Vena Cava Normal inferior vena cava with >50% collapse upon inspiration consistent with normal right atrial pressure, 5 mmHg. Aorta The aortic root size at the sinus of Valsalva is normal. Left Ventricular Outflow Tract Name Value Normal LVOT 2D LVOT Diameter 2.1 cm LVOT Doppler LVOT Peak Gradient 4 mmHg LVOT Mean Gradient 2 mmHg LVOT VTI 24 cm LVOT VTI/AV VTI Ratio 0.7 LVOT Stroke Volume
== END 2021-10-19 12:32 | disposition home or self-care (01) ==
PROVIDERS: PCP Physician Assistant; Visit Provider Physician Assistant
DX: R60.9 Edema, unspecified (principal); R93.1 Abnormal findings on diagnostic imaging of heart and coronary circulation; I08.1 Rheumatic disorders of both mitral and tricuspid valves; I27.20 Pulmonary hypertension, unspecified; I31.3 Pericardial effusion (noninflammatory)
CPT/HCPCS: 93306

== ENCOUNTER 2021-12-01 08:01 | Outpatient (CLI) | payer MEDICARE, SELFPAY ==
--- NOTE | 2021-12-09 13:41 | WPDSLEEPSTUD ---
Sleep Study Date of Study: 12/01/21 Ordering Provider: Ramesh Smith PA-C Interpreting Physician: лОьга Judd DO Sleep Study Type: Split Polysomnogram Height: 1.57 m Weight: 81.647 kg Body Mass Index: 32.9 Neck Circumference (inches): 12 [place]: 6 Reason for Sleep Study Daytime hypersomnia Sleep History The patient is a 56-year-old female with alcohol abuse, alcoholic cirrhosis of liver, carotid artery disease, chronic hyponatremia, diastolic dysfunction, GERD, hypertension, diabetes, carotid artery disease and orthostatic hypotension that had a sleep study ordered by his PCP. The patient rarely awakens from sleep short of breath. She occasionally awakens at night with heartburn, belching or cough. She occasionally snores loud enough that others complain. She denies having trouble sleeping when she has a cold. She rarely wakes up gasping for air throughout the night. She denies having breathing problems at night observed by others. She rarely sweats excessively night. She denies having heart palpitations or irregular heartbeats during night. She denies falling asleep during the day while driving. She denies having trouble at work or school due to sleepiness. She rarely feels unable to move when waking up her falling asleep. She denies cataplexy and hypnagogic / hypnopompic hallucinations. She occasionally has nightmares. She denies racing through her mind. She denies feeling sad, depressed or anxious. She denies noticing parts of her body jerk. She denies kicking during the night. She denies having crawling aching feelings legs as well as leg pain during the night. She frequently grinds her teeth during sleep but never awakens with morning jaw pain. She denies being bothered during the day and being awakened by pain during the night. She denies waking up feeling stiff in the morning. She denies waking up with sore or achy muscles. She denies waking up with pain in the neck, spine or other joints. She goes to bed at midnight on hold weakness and sleep apnea. She is unsure how long it takes for her to fall asleep. She wakes up twice throughout the night to watch television or go to the bathroom. The amount of time it takes for her to fall back asleep is variable. The patient wakes up at 6:30 am on both weekdays or weekends. The patient gets 5 hours of sleep per night. The patient does not consume any caffeinated beverages within 2 hours of bedtime. She does not engage in physical exercise before bedtime. She will watch television before falling asleep. She will take naps in the afternoon or the evening but they are not refreshing. She drinks 2 caffeinated beverages per day. She quit smoking cigarettes 16 years ago. She drinks 3 alcoholic beverages per day. She denies recreational drug use. [facility] Past Medical History Medical History Alcohol abuse Alcoholic cirrhosis of liver Carotid artery disease Chronic anemia Chronic hyponatremia Diastolic dysfunction Echocardiogram on 01/14/2021 showed normal left ventricular systolic function with an estimated EF of 60 to 65% as well as grade 1 diastolic dysfunction. Eczema Gastroesophageal reflux disease Hypertension Insulin dependent type 2 diabetes mellitus Hemoglobin A1c was 5.4% on 01/14/2021. Left-sided carotid artery disease Carotid Doppler ultrasound on 01/14/2021 showed 50 to 69% stenosis in the left internal carotid artery. Orthostatic hypotension An ongoing issue for the patient. She has had several syncopal episodes over the years leading to falls and fractures. Periprosthetic fracture of femur following total replacement of hip (01/2020) Non operative treatment. Surgical History Surgical History History of bilateral cataract extraction History of hysterectomy (2005) Due to uterine fibroids and endometriosis. History of lumbar surgery (2005
[2021-12-09 15:57] VITALS: BMI 32.9
== END 2021-12-02 06:50 | disposition home or self-care (01) ==
LOC: ANHCSM 08:02
PROVIDERS: PCP Physician Assistant; Visit Provider Physician Assistant
DX: G47.10 Hypersomnia, unspecified (principal); G47.33 Obstructive sleep apnea (adult) (pediatric)
CPT/HCPCS: 95811

== ENCOUNTER 2021-12-04 12:13 | Outpatient (CLI) | payer MEDICARE, SELFPAY ==
[2021-12-04 12:51] LABS: Albumin Level 4.3 g/dL (3.5-5.1); Anion Gap 7 mmol/L (8-16); Blood Urea Nitrogen 17 mg/dL (7-17); Calcium 9.3 mg/dL (8.4-10.2); Carbon Dioxide 24 mmol/L (22-30); Chloride 94 mmol/L (98-107); Estimated Glomerular Filt Rate 41; Glucose 179 mg/dL (65-110); Phosphorus 4.2 mg/dL (2.5-4.5); Potassium 5.2 mmol/L (3.4-5.0); Sodium 125 mmol/L (137-145)
== END 2021-12-04 12:14 | disposition home or self-care (01) ==
LOC: ANHLAB 12:17
PROVIDERS: PCP Physician Assistant; Visit Provider Internal Medicine Nephrology
DX: I12.9 Hypertensive chronic kidney disease with stage 1 through stage 4 chronic kidney disease, or unspecified chronic kidney disease (principal); N18.31 Chronic kidney disease, stage 3a; E87.1 Hypo-osmolality and hyponatremia
CPT/HCPCS: 36415; 80069

== ENCOUNTER 2022-03-09 09:14 | Outpatient (CLI) | payer MEDICARE, SELFPAY ==
--- NOTE | ~2022-03-09 | NM_ITS ---
EXAMINATION: NM stress w perf spect multi DATE: 03/09/2022 12:47 INDICATION: Chest pain TECHNIQUE: Rest images were obtained following intravenous administration of 9.6 mCi Tc99m tetrofosmi n (Amedrix). The patient performed an exercise activity. At peak exercise, 29.9 mCi Tc99m tetrofosmin ([employer]) was administered intravenously, and stress images were obtained. Data was reconstructed in to short axis and horizontal and vertical long axis SPECT images. Gated SPECT images were also obtain ed. COMPARISON: None. FINDINGS: There is normal left ventricular perfusion without definite evidence of reversible or fixed perfusion abnormality to suggest ischemia or infarction. There is normal left ventricular chamber size, wall motion and ejection fraction. Left ventricular ejection fraction measures >70%. IMPRESSION: 1. Normal myocardial perfusion at rest and during stress. 2. Left ventricular ejection fraction measuring >70%. Reviewed, dictated and finalized at location B.
--- NOTE | 2022-03-09 09:57 | EST_ITS ---
Patient Info Name: Lou Islas Age: 66 years : 1955 Gender: Female Ht: 66 in Wt: 185 lbs BSA: 2.00 m2 HR: 84 bpm BP: 147 / 67 mmHg Heart Rhythm: Sinus Rhythm Exam Date: 03/09/2022 10:46 AM Exam Location: [facility] Stress Patient Status: Outpatient Admit Date: 03/09/2022 Staff Ordering Physician: Ramesh Smith PA-C Attending Provider: Ramesh Smith PA-C Exercise Technologist: Tonia Roa CT Exercise Physician: Joshua Rg DO Exam Type: CA stress jennifer w NM Study Info Indications R07.9 - Chest pain, unspecified R06.02 - Shortness of breath A regadenoson stress test was performed. Summary 1. 1. Negative lexiscan stress test for ischemic ST changes by ECG criteria. 2. 2. Baseline hypertension. 3. 3. Nuclear scan to follow and will be reported separately. Please correlate with it. 4. 4. Patient informed of the above results. Protocol: Lexiscan Stress ECG Details Stage: REST Duration (min): 0 min : 48 sec HR (bpm): 84 SBP (mmHg): 147 DBP (mmHg): 67 Stage: REST Duration (min): 12 min : 14 sec HR (bpm): 85 SBP (mmHg): 147 DBP (mmHg): 67 Stage: STAGE 1 Duration (min): 0 min : 59 sec HR (bpm): 86 SBP (mmHg): 149 DBP (mmHg): 73 Stage: RECOVERY Duration (min): 1 min : 0 sec HR (bpm): 88 SBP (mmHg): 149 DBP (mmHg): 73 Stage: RECOVERY Duration (min): 2 min : 0 sec HR (bpm): 87 SBP (mmHg): 149 DBP (mmHg): 73 Stage: RECOVERY Duration (min): 2 min : 51 sec HR (bpm): 87 SBP (mmHg): 142 DBP (mmHg): 72 Rest HR: 85 bpm Peak HR: 88 bpm Rest Sys BP: 147 mmHg Peak Sys BP: 149 mmHg Max Pred HR: 153 bpm % Max Pred HR: 58 % Target HR: 130 bpm Max RPP: 13,112 bpm*mmHg Termination Reason: Completed protocol Cardiac Symptoms: Shortness of breath Total Time: 1 min : 0 sec Rest Mcdermott BP: 67 mmHg Peak Mcdermott BP: 73 mmHg Total Dose: 0.4 mg Resting ECG Sinus rhythm, low voltage in precordial leads. Stress ECG No ST changes. Arrhythmias None. Report Signatures
== END 2022-03-09 09:15 | disposition home or self-care (01) ==
PROVIDERS: PCP Physician Assistant; Visit Provider Physician Assistant
DX: R07.9 Chest pain, unspecified (principal); R06.02 Shortness of breath
CPT/HCPCS: 78452; 93017; A9502; J2785

== ENCOUNTER 2022-04-29 12:31 | Outpatient (CLI) | payer MEDICARE, SELFPAY ==
--- NOTE | 2022-05-01 15:54 | WPDPFTINT ---
PFT Procedure Performed PFT Procedure Performed Spirometry with Pre/Post Bronchodilator Plethysmography (Lung Vol) Diffusing Cap (DLCO) Flow Vol Loop PFT Interpretation DOS: 04/29/2022 REQUESTING: Dr Samayoa REASON FOR TESTING: Shortness of breath, pulmonary hyperetnsion PULMONARY FUNCTION TESTS Results are reliable and reproducible. Spirometry: Pre-bronchodilator FEV1 is 72% predicted, 1.69 L, just below the lower limits of normal. Pre-bronchodilator FVC is 82% predicted, 2.49 L. The FEV1:FVC ratio is 68%. After bronchodilator, the FEV1 increased 3% to 1.74 L and the FVC increased 5% to2.61 L , not a statistically significant change. Lung volumes: Total lung capacity is 105%, 5.45 L normal. Slow vital capacity is 91%, 2.75 L, and this value is greater than the forced vital capacity 82% measured in spirometry. This demonstrates dynamic air trapping. ERV is 8% significantly decreased, 0.08 L and may be a spurious result. RV is 123%, increased mildly consistent with mild air trapping. Airway resistance is increased 502%. Diffusion: DLCO 55%, moderately decreased. This is 63% when corrected for alveolar volume. Flow volume loop: Mild scooping of the expiratory limb. IMPRESSION: Mild airflow obstruction, mild air trapping and moderate diffusion impairment. No response to bronchodilator administration. The diffusion impairment is the most significant finding on this study. Decreased diffusion can be seen in pulmonary hypertension. This patient appears to have a mild obstructive process without response to bronchodilator which may represent COPD as she is a smoker. Lack of response to bronchodilator should not preclude use if clinically indicated. Smoking can decreased diffusion. Consider evaluation for hypoxemia with exertion. Babs Samayoa MD
== END 2022-04-29 12:32 | disposition home or self-care (01) ==
PROVIDERS: PCP Physician Assistant; Visit Provider Internal Medicine Critical Care Medicine
DX: R06.02 Shortness of breath (principal); R94.2 Abnormal results of pulmonary function studies
CPT/HCPCS: 94060; 94726; 94729

== ENCOUNTER 2022-05-05 12:22 | Outpatient (CLI) | payer MEDICARE, SELFPAY ==
[2022-05-05 12:46] LABS: Basophils Percent Auto 0.5 % (0.2-1.2); Eosinophils Absolute Auto 0.4 K/mm3 (0-0.3); Hematocrit 28.2 % (37.0-47.0); Hemoglobin 9.6 g/dL (12.0-15.0); Immature Granulocyte Absolute 0.03 K/mm3 (0.00-0.031); Immature Granulocyte Percent A 0.5 % (0-0.5); Lymphocytes Absolute Auto 0.62 K/mm3 (0.9-3.2); Lymphocytes Percent Auto 10.6 % (18.3-44.2); Mean Corpuscular Hemoglobin 33.1 pg (26-34); Mean Corpuscular Volume 97.2 fl (80-100); Mean Platelet Volume 10.1 fl (7.4-10.4); Monocytes Absolute Auto 0.6 K/mm3 (0.1-0.6); Monocytes Percent Auto 9.8 % (2.6-8.5); Neutrophils Absolute Auto 4.2 K/mm3 (1.3-6.7); Neutrophils Percent Auto 72.6 % (45.5-73.1); Platelet Count Result 169 k/mm3 (150-375); Red Cell Distribution Width 12.7 % (11.5-14.5); White Blood Count 5.8 K/mm3 (4.5-10.0)
[2022-05-05 13:02] LABS: Alanine Aminotransferase 23 U/L (6-35); Albumin Level 4.3 g/dL (3.5-5.1); Alkaline Phosphatase 199 U/L (38-126); Anion Gap 8 mmol/L (8-16); Aspartate Amino Transferase 33 U/L (14-36); Bilirubin,Total 0.9 mg/dL (0.2-1.3); Blood Urea Nitrogen 15 mg/dL (7-17); Calcium 9.1 mg/dL (8.4-10.2); Carbon Dioxide 25 mmol/L (22-30); Chloride 92 mmol/L (98-107); Cholesterol 172 mg/dL (0-200); Estimated Glomerular Filt Rate 30; Glucose 112 mg/dL (65-110); HDL Direct 94 mg/dL; Potassium 4.5 mmol/L (3.4-5.0); Sodium 125 mmol/L (137-145); Triglycerides 91 mg/dL (<150)
[2022-05-05 13:03] LABS: Albumin Level 4.3 g/dL (3.5-5.1); Anion Gap 9 mmol/L (8-16); Blood Urea Nitrogen 15 mg/dL (7-17); Calcium 9.2 mg/dL (8.4-10.2); Carbon Dioxide 24 mmol/L (22-30); Chloride 92 mmol/L (98-107); Estimated Glomerular Filt Rate 30; Glucose 112 mg/dL (65-110); Phosphorus 3.6 mg/dL (2.5-4.5); Potassium 4.5 mmol/L (3.4-5.0); Sodium 125 mmol/L (137-145)
[2022-05-05 13:12] LABS: LDL Cholesterol Direct 43 mg/dL
[2022-05-05 13:41] LABS: Creatinine Urine 84.1 mg/dL
[2022-05-05 14:10] LABS: Microalbumin Urine Random 347.3 mg/L (0-16.7)
[2022-05-05 14:10] LABS: Folic Acid > 20.0 ng/mL (2.76->20); Vitamin B12 > 1000.0 pg/mL (239-931)
[2022-05-11 20:13] LABS: ANA Cascade Screen Negative (Negative)
== END 2022-05-05 12:23 | disposition home or self-care (01) ==
PROVIDERS: PCP Physician Assistant; Referring Provider Internal Medicine Nephrology; Visit Provider Internal Medicine Critical Care Medicine
DX: E11.9 Type 2 diabetes mellitus without complications (principal); Z79.4 Long term (current) use of insulin; D63.8 Anemia in other chronic diseases classified elsewhere; I27.20 Pulmonary hypertension, unspecified; N18.31 Chronic kidney disease, stage 3a; E87.1 Hypo-osmolality and hyponatremia
CPT/HCPCS: 36415; 80053; 80061; 80069; 82043; 82607; 82746; 83036; 85025; 86038

== ENCOUNTER 2022-05-25 09:44 | Outpatient (CLI) | payer MEDICARE, SELFPAY ==
--- NOTE | ~2022-05-25 | DEXA_ITS ---
Bone Density Report Name: GILLES JOY Age: 67 Sex: Female Ethnicity: White Date of : 1955 Indication: postmenopausal; screening for osteoporosis; height loss; prior fracture; hysterectomy; Referring Provider: OCTAVIO COLIN Study: Bone densitometry was performed. Exam Date: May 25, 2022 Accession number: [id number] Bone Density: Region BMD T-score Z-score Classification AP Spine(L1-L4) 1.074 0.2 2.2 Normal Femoral Neck (Left) 0.445 -3.6 -2.0 Osteoporosis Total Hip (Left) 0.605 -2.8 -1.4 Osteoporosis World Health Organization criteria for BMD impression classify patients as: Normal (T-score at or above -1.0), Osteopenia (T-score between -1.0 and -2.5), or Osteoporosis (T-score at or below -2.5). 10-year Fracture Risk: FRAX not reported because: Some T-score for Spine Total or Hip Total or Femoral Neck at or below -2.5 Clinical Information Provided by Patient: Has had a low trauma fracture Has used the following medications: Boniva (i.e. ibandronate), Vitamin D, Calcium Has the following medical conditions: Hysterectomy Patient maximum height was 66 Menopause Age: 41 No regular weight bearing exercise Drinks caffeinated beverages Onset of menses at age 12 Number of children 0 Impression: The patient has established osteoporosis, based on the Left Femoral Neck T-score and the existence of a prior fracture. The patient has risk factors, including: previous fracture. Discussion: HIGH RISK OF FRACTURE. BONE DENSITY IS UNDESIRABLY LOW AT ONE OR MORE SKELETAL SITES, CONSISTENT WITH POSTMENOPAUSAL OSTEOPOROSIS. This patient's lowest T-score, in a patient who has previously fractured, meets the World Health Organization's (WHO) criteria for severe osteoporosis. In untreated patients, the risk of osteoporotic fracture increases approximately two-fold for each 1.0 SD decrease in T-score. Low bone density is not the only risk factor for fracture; also consider factors such as patient's age, frailty or poor health, risk of falling, risk of injury, previous osteoporotic fracture, family history of osteoporosis, cigarette smoking, low body weight, etc. Not everyone with low bone mineral density has osteoporosis; osteomalacia and other metabolic bone disorders should also be considered. Patients who have osteoporosis should be evaluated for specific diseases and conditions (secondary causes) that may cause or contribute to bone loss. The [place] [employer] Clinical Endocrinologists (AACE) and National Osteoporosis Foundation (NOF) recommend pharmacologic intervention for all postmenopausal women whose T-score is in this range. The patient should follow a healthful lifestyle (good nutrition with adequate calcium and vitamin D, and appropriate weight-bearing exercise). Follow-Up: Consider a repeat BMD and Vertebral Fracture Assessment (VF
--- NOTE | ~2022-05-25 | MM_ITS ---
EXAMINATION: MM screening lisandro BI w connie HISTORY: Screening mammogram, family history of breast cancer in her mother. TECHNIQUE: Craniocaudal and mediolateral oblique 3-D tomosynthesis images were obtained and synthetic 2-D images were generated. CAD analysis was submitted and interpreted. COMPARISON: 12/21/2018 BREAST PARENCHYMAL COMPOSITION: There are scattered areas of fibroglandular density. FINDINGS: There is no suspicious mass, calcification, or architectural distortion to suggest malignan cy in either breast. There has been no suspicious interval change. IMPRESSION: 1. No mammographic evidence of malignancy. 2. Recommend routine screening mammography in one year. BI-RADS Category 1: Negative Reviewed, dictated and finalized at location A.
== END 2022-05-25 09:45 | disposition home or self-care (01) ==
PROVIDERS: PCP Physician Assistant; Visit Provider Physician Assistant
DX: Z12.31 Encounter for screening mammogram for malignant neoplasm of breast (principal); Z78.0 Asymptomatic menopausal state; M81.0 Age-related osteoporosis without current pathological fracture; M85.89 Other specified disorders of bone density and structure, multiple sites
CPT/HCPCS: 77063; 77067; 77080

== ENCOUNTER 2022-06-30 00:39 | Day surgery (SDC) | payer MEDICARE, SELFPAY ==
[2022-06-15 14:35] VITALS: BMI 30.8
--- NOTE | 2022-06-29 10:30 | WPDANESEPPF ---
Anes - Initial Pre Proc Eval Procedure: Operation Date: 06/30/22 11:30 Proposed Procedures p Esophagogastroduodenoscopy - Pablo Torres MD Date/Time: 06/29/22 10:30 Surgeon: Pablo Torres MD Pre Op Diagnosis: cirrhosis Patient Data Age: 67 Gender: F Height: 1.65 m Weight: 84.09 kg Allergies Allergy/AdvReac Type Severity Reaction Status Date / Time codeine AdvReac Unknown Headache Verified 06/30/22 10:10 Home Medications Medication Instructions Recorded Confirmed Type omeprazole magnesium 20 mg 20 mg PO DAILY 02/09/20 06/30/22 History tablet,delayed release (Prilosec OTC) folic acid 1 mg tablet 1 mg PO DAILY #90 tabs 02/28/20 06/30/22 Rx diphenhydramine HCl 25 mg tablet 25 mg PO DAILY PRN Allergy Symptoms 03/31/20 06/30/22 History (Benadryl Allergy) fluticasone propionate 50 1 spray intranasal DAILY PRN 08/16/20 06/30/22 History mcg/actuation nasal allergies spray,suspension thiamine HCl (vitamin B1) 100 mg 100 mg PO QAM #30 tabs 08/18/20 06/30/22 Rx tablet (Vitamin B-1) jnwgrkxsuyyq-Lo-hkht-minerals 1 tablet PO DAILY #30 tabs 01/16/21 06/30/22 Rx (Multiple Vitamin, Womens tablet) mecobalamin (vitamin B12) 1,000 3,000 mcg PO DAILY 05/13/21 06/30/22 History mcg chewable tablet pyridoxine (vitamin B6) 100 mg 100 mg PO DAILY 05/13/21 06/30/22 History tablet ferrous sulfate 325 mg (65 mg 325 mg PO DAILY 06/06/21 06/30/22 History iron) tablet magnesium oxide 400 mg (241.3 mg 250 mg PO QAM 06/06/21 06/30/22 History magnesium) tablet sodium chloride 1 gram tablet 1 g PO QAM 06/06/21 06/30/22 History aspirin 81 mg chewable tablet 324 mg PO DAILY 06/28/21 06/30/22 History (Aspirin Childrens) labetalol 100 mg tablet 100 mg PO BID #60 tabs 02/10/22 06/30/22 Rx losartan 100 mg tablet 100 mg PO DAILY #90 tabs 02/10/22 06/30/22 Rx blood sugar diagnostic #360 ea 02/23/22 06/28/22 Rx furosemide 20 mg tablet 20 mg PO QAM 02/23/22 06/30/22 History insulin glargine 100 unit/mL (3 11 unit (0.11 mL) subcut HS #9 mL 02/23/22 06/30/22 Rx mL) subcutaneous pen (Lantus Solostar U-100 Insulin) pen needle, diabetic 32 gauge x #360 ea 02/23/22 06/28/22 Rx /32 (BD Muriel 2nd Gen Pen Needle) diltiazem HCl 60 mg 60 mg PO BID #180 caps 03/11/22 06/30/22 Rx capsule,extended release 12 hr insulin lispro 100 unit/mL 2 unit (0.02 mL) subcut TID #6 mL 05/02/22 06/30/22 Rx subcutaneous pen (Humalog KwikPen (U-100) Insulin) atorvastatin 10 mg tablet 10 mg PO QAM #90 tabs 05/11/22 06/30/22 Rx alendronate 70 mg tablet 70 mg PO WEEKLY #12 tabs 05/30/22 06/30/22 Rx Patient hx anesthesia problems: none Family hx anesthesia problems: none Results Review: All pre-operative results and documents have been reviewed as part of the pre-operative evaluation. [facility] Past Medical History Medical History (Updated 06/29/22 @ 10:30 by Isrrael Kothari DO) Alcohol abuse Alcoholic cirrhosis of liver Carotid artery disease Chronic anemia Chronic hyponatremia Diastolic dysfunction Echocardiogram on 01/14/2021 showed normal left ventricular systolic function with an estimated EF of 60 to 65% as well as grade 1 diastolic dysfunction. Eczema Gastroesophageal reflux disease GERD (gastroesophageal reflux disease) Hypertension Insulin dependent type 2 diabetes mellitus Hemoglobin A1c was 5.4% on 01/14/2021. Left-sided carotid artery disease Carotid Doppler ultrasound on 01/14/2021 showed 50 to 69% stenosis in the left internal carotid artery. Orthostatic hypotension An ongoing issue for the patient. She has had several syncopal episodes over the years leading to falls and fractures. ANTHONY (obstructive sleep apnea) Osteoarthritis Periprosthetic fracture of femur following total replacement of hip (01/2020) Non operative treatment. Surgical History Surgical History History of bilateral cataract extraction History of hysterect
[2022-06-30 10:11] VITALS: BP 132/55; PULSE 93; RESP 18; TEMP 36.5; O2SAT 99
[2022-06-30 10:12] LABS: Glucose Point of Care 115 mg/dl (65-105)
[2022-06-30] MEDS: LACTATED RINGERS 1,000 ML 150 ML IV CONT (10:24)
--- NOTE | 2022-06-30 10:38 | PM.IMHP ---
H&P: HPI History of Present Illness Date/Time: 06/30/22 10:38 Chief Complaint: Cirrhosis evaluation for varices Narrative: this is a 67-year-old white female patient with a known history of cirrhosis. She presents today for EGD to assess for the possibility of esophageal varices. She has a history of rather heavy alcohol intake in the past. Recent CT scanning confirms asymptomatic gallstones. Patient denies abdominal pain. She presents for EGD to assess for the potential of esophageal varices. Review of Systems Review of Systems: Review of systems noncontributory. [facility], [facility] Past Medical History Medical History (Updated 06/29/22 @ 10:30 by Isrrael Kothari, ) Alcohol abuse Alcoholic cirrhosis of liver Carotid artery disease Chronic anemia Chronic hyponatremia Diastolic dysfunction Echocardiogram on 01/14/2021 showed normal left ventricular systolic function with an estimated EF of 60 to 65% as well as grade 1 diastolic dysfunction. Eczema Gastroesophageal reflux disease GERD (gastroesophageal reflux disease) Hypertension Insulin dependent type 2 diabetes mellitus Hemoglobin A1c was 5.4% on 01/14/2021. Left-sided carotid artery disease Carotid Doppler ultrasound on 01/14/2021 showed 50 to 69% stenosis in the left internal carotid artery. Orthostatic hypotension An ongoing issue for the patient. She has had several syncopal episodes over the years leading to falls and fractures. ANTHONY (obstructive sleep apnea) Osteoarthritis Periprosthetic fracture of femur following total replacement of hip (01/2020) Non operative treatment. Surgical History Surgical History History of bilateral cataract extraction History of hysterectomy (2005) Due to uterine fibroids and endometriosis. History of lumbar surgery (2005) L1-L3. History of right hip replacement (2005) Per Dr. Curiel in [place]. Status post open reduction with internal fixation of fracture (05/30/21) ORIF of comminuted intra-articular fracture of the distal left femur, done at [facility]. Family History Family History Father Afib Heart attack Mother Hypertension Diabetes mellitus COPD (chronic obstructive pulmonary disease) Sibling Diabetes mellitus Amputation above knee Father , At age 50 Acute myocardial infarction Sibling , At age 50 Pancreatic cancer Social History Social History (Reviewed 06/27/22 @ 14:12 by TAINA Fishman Social History: The patient lives in her own home in [place]. She has been twice, her 1st and she has since her 2nd . She has no children. She moved to this area within the last couple of years from [place] to be close to her 3 remaining siblings. 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 She has recently retired.She smoked up to 2 packs of cigarettes a day before quitting in 2005. She drinks 2 mixed drinks a day, each containing a shot of vodka which equals out to about 1 L to 1.7 L of vodka a week. She denies illicit substance use. Surrogate decision maker: Miladys Jensen, sister. Code status: Full code. Smoking packs per day: 2 Smoking cigarettes per day: 40.0 Smoking status: Former smoker Tobacco type: cigarettes Smokeless tobacco user: chewing tobacco Living arrangements: alone Sexual Orientation (if Verbalized by the Patient): Straight or Heterosexual Meds Home Medications and Allergies Home Medications Medication Instructions Recorded Confirmed Type omeprazole magnesium 20 mg 20 mg PO DAILY 02/09/20 06/30/22 History tablet,delayed release (Prilosec OTC) folic acid 1 mg tablet 1 mg PO DAILY #90 tabs 02/28/20 06/30/22 Rx diphenhydramine HCl 25 mg tablet 25 mg PO DAILY PRN Allergy Symptoms 03/31/20 06/30/22 History (Benadryl Allergy) f
[2022-06-30] MEDS: BENZOCAINE (*SP) 60 ML SPRAY CAN (HURRICAINE) 1 SPRAY MUCOUS MEM (11:16)
[2022-06-30 11:25] VITALS: BP 163/92; PULSE 85; RESP 20; O2SAT 100
[2022-06-30 11:35] VITALS: BP 151/82; PULSE 86; RESP 20; O2SAT 100
[2022-06-30 11:43] LABS: Glucose Point of Care 115 mg/dl (65-105)
[2022-06-30 11:45] VITALS: BP 160/83; PULSE 85; RESP 22; O2SAT 100
== END 2022-06-30 11:50 | disposition home or self-care (01) ==
PROVIDERS: PCP Physician Assistant; Visit Provider Internal Medicine Gastroenterology
PROC: 0DJ08ZZ Inspection of Upper Intestinal Tract, Via Natural or Artificial Opening Endoscopic (ICD-10-PCS; CPT 43235; principal; 2022-06-30 11:30)
DX: K70.31 Alcoholic cirrhosis of liver with ascites (principal); I85.00 Esophageal varices without bleeding; Z79.82 Long term (current) use of aspirin; D64.9 Anemia, unspecified; E87.1 Hypo-osmolality and hyponatremia; L30.9 Dermatitis, unspecified; E11.9 Type 2 diabetes mellitus without complications; G47.33 Obstructive sleep apnea (adult) (pediatric); K21.9 Gastro-esophageal reflux disease without esophagitis; I65.22 Occlusion and stenosis of left carotid artery; M19.90 Unspecified osteoarthritis, unspecified site; Z87.891 Personal history of nicotine dependence; E66.9 Obesity, unspecified; Z68.31 Body mass index [BMI] 31.0-31.9, adult; F10.20 Alcohol dependence, uncomplicated
CPT/HCPCS: 43235; 82948; J2704; J7120

== ENCOUNTER 2022-09-28 11:30 | Outpatient (CLI) | payer MEDICARE, SELFPAY ==
[2022-09-28 12:20] LABS: Albumin Level 4.1 g/dL (3.5-5.1); Anion Gap 9 mmol/L (8-16); Blood Urea Nitrogen 16 mg/dL (7-17); Calcium 8.9 mg/dL (8.4-10.2); Carbon Dioxide 26 mmol/L (22-30); Chloride 91 mmol/L (98-107); Estimated Glomerular Filt Rate 35; Glucose 214 mg/dL (65-110); Phosphorus 4.2 mg/dL (2.5-4.5); Potassium 4.2 mmol/L (3.4-5.0); Sodium 126 mmol/L (137-145)
[2022-09-28 12:20] LABS: Anion Gap 8 mmol/L (8-16); Blood Urea Nitrogen 16 mg/dL (7-17); Calcium 8.9 mg/dL (8.4-10.2); Carbon Dioxide 28 mmol/L (22-30); Chloride 91 mmol/L (98-107); Estimated Glomerular Filt Rate 35; Glucose 213 mg/dL (65-110); Potassium 4.2 mmol/L (3.4-5.0); Sodium 127 mmol/L (137-145)
[2022-10-04 21:22] LABS: Alpha Fetoprotein Tumor Marker 3.4 ng/mL (<6.1)
== END 2022-09-28 11:31 | disposition home or self-care (01) ==
LOC: ANHLAB 11:40
PROVIDERS: Internal Medicine Gastroenterology; PCP Physician Assistant; Visit Provider Internal Medicine Nephrology
DX: E87.1 Hypo-osmolality and hyponatremia (principal); N18.31 Chronic kidney disease, stage 3a; K74.60 Unspecified cirrhosis of liver
CPT/HCPCS: 36415; 80048; 80069; 82105

== ENCOUNTER 2022-11-04 15:35 | Outpatient (CLI) | payer MEDICARE, SELFPAY ==
[2022-11-04 16:19] LABS: Albumin Level 4.1 g/dL (3.5-5.1); Anion Gap 10 mmol/L (8-16); Blood Urea Nitrogen 17 mg/dL (7-17); Calcium 8.7 mg/dL (8.4-10.2); Carbon Dioxide 27 mmol/L (22-30); Chloride 92 mmol/L (98-107); Estimated Glomerular Filt Rate 32; Glucose 133 mg/dL (65-110); Phosphorus 3.8 mg/dL (2.5-4.5); Potassium 4.8 mmol/L (3.4-5.0); Sodium 129 mmol/L (137-145)
[2022-11-04 16:22] LABS: Hemoglobin A1C 5.3 % (<5.7)
== END 2022-11-04 15:36 | disposition home or self-care (01) ==
PROVIDERS: Internal Medicine Nephrology; PCP Physician Assistant; Visit Provider Physician Assistant
DX: E11.9 Type 2 diabetes mellitus without complications (principal); N18.31 Chronic kidney disease, stage 3a; E87.1 Hypo-osmolality and hyponatremia
CPT/HCPCS: 36415; 80069; 83036

== ENCOUNTER 2023-05-22 11:57 | Outpatient (CLI) | payer MEDICARE, SELFPAY ==
[2023-05-22 12:56] LABS: Albumin Level 4.2 g/dL (3.5-5.1); Anion Gap 7 mmol/L (8-16); Blood Urea Nitrogen 13 mg/dL (7-17); Calcium 8.5 mg/dL (8.4-10.2); Carbon Dioxide 33 mmol/L (22-30); Chloride 82 mmol/L (98-107); Estimated Glomerular Filt Rate 45; Glucose 117 mg/dL (65-110); Phosphorus 3.3 mg/dL (2.5-4.5); Potassium 3.4 mmol/L (3.4-5.0); Sodium 122 mmol/L (137-145)
[2023-05-22 12:57] LABS: Creatinine Urine 18.9 mg/dL; Total Protein Urine Random 17 mg/dL
[2023-05-22 13:07] LABS: Parathyroid Intact 145.9 pg/mL (7.5-53.5)
[2023-05-22 13:48] LABS: Vitamin D 25 Hydroxy 35.2 ng/mL
== END 2023-05-22 11:58 | disposition home or self-care (01) ==
PROVIDERS: PCP Physician Assistant; Visit Provider Internal Medicine Nephrology
DX: N25.81 Secondary hyperparathyroidism of renal origin (principal); I12.9 Hypertensive chronic kidney disease with stage 1 through stage 4 chronic kidney disease, or unspecified chronic kidney disease; E87.1 Hypo-osmolality and hyponatremia; E55.9 Vitamin D deficiency, unspecified; N18.32 Chronic kidney disease, stage 3b
CPT/HCPCS: 36415; 80069; 82306; 82570; 83970; 84156

== ENCOUNTER 2023-07-17 11:59 | Outpatient (CLI) | payer MEDICARE, SELFPAY ==
[2023-07-17 12:56] LABS: Basophils Absolute Auto 0.1 K/mm3 (0.0-0.1); Basophils Percent Auto 1.1 % (0.2-1.2); Eosinophils Absolute Auto 0.2 K/mm3 (0-0.3); Eosinophils Percent Auto 2.4 % (0-4.4); Hematocrit 29.3 % (37.0-47.0); Immature Granulocyte Absolute 0.07 K/mm3 (0.00-0.031); Immature Granulocyte Percent A 1.1 % (0-0.5); Lymphocytes Absolute Auto 0.72 K/mm3 (0.9-3.2); Lymphocytes Percent Auto 11.7 % (18.3-44.2); Mean Corpuscular HGB Conc 34.1 g/dl (32-36); Mean Corpuscular Hemoglobin 35.2 pg (26-34); Mean Corpuscular Volume 103.2 fl (80-100); Mean Platelet Volume 11.3 fl (7.4-10.4); Monocytes Absolute Auto 0.4 K/mm3 (0.1-0.6); Monocytes Percent Auto 6.6 % (2.6-8.5); Neutrophils Absolute Auto 4.8 K/mm3 (1.3-6.7); Neutrophils Percent Auto 77.1 % (45.5-73.1); Platelet Count Result 150 k/mm3 (150-375); Red Blood Count 2.84 M/mm3 (4.2-5.4); Red Cell Distribution Width 13.1 % (11.5-14.5); White Blood Count 6.2 K/mm3 (4.5-10.0)
[2023-07-17 13:03] LABS: Alanine Aminotransferase 39 U/L (6-35); Albumin Level 3.7 g/dL (3.5-5.1); Alkaline Phosphatase 260 U/L (38-126); Anion Gap 11 mmol/L (8-16); Aspartate Amino Transferase 107 U/L (14-36); Bilirubin,Total 1.9 mg/dL (0.2-1.3); Blood Urea Nitrogen 5 mg/dL (7-17); Calcium 7.8 mg/dL (8.4-10.2); Carbon Dioxide 26 mmol/L (22-30); Chloride 92 mmol/L (98-107); Cholesterol 171 mg/dL (0-200); Estimated Glomerular Filt Rate > 60; Glucose 135 mg/dL (65-110); HDL Direct 86 mg/dL; Potassium 3.2 mmol/L (3.4-5.0); Sodium 129 mmol/L (137-145); Triglycerides 97 mg/dL (<150)
[2023-07-17 13:06] LABS: Albumin Level 3.7 g/dL (3.5-5.1); Anion Gap 11 mmol/L (8-16); Blood Urea Nitrogen 5 mg/dL (7-17); Calcium 7.8 mg/dL (8.4-10.2); Carbon Dioxide 26 mmol/L (22-30); Chloride 92 mmol/L (98-107); Estimated Glomerular Filt Rate > 60; Glucose 134 mg/dL (65-110); Phosphorus 3.3 mg/dL (2.5-4.5); Potassium 3.2 mmol/L (3.4-5.0); Sodium 129 mmol/L (137-145)
[2023-07-17 13:14] LABS: LDL Cholesterol Direct 75 mg/dL
[2023-07-17 13:29] LABS: Creatinine Urine 30.4 mg/dL
[2023-07-17 13:33] LABS: MALB Creatinine Ratio 67.8 mg/g (0-30); Microalbumin Urine Random 20.6 mg/L (0-16.7)
[2023-07-17 13:35] LABS: Vitamin D 25 Hydroxy 41.9 ng/mL
[2023-07-17 14:20] LABS: Folic Acid 3.9 ng/mL (2.76->20); Vitamin B12 > 1000.0 pg/mL (239-931)
[2023-07-17 14:41] LABS: Hemoglobin A1C 4.8 % (<5.7)
== END 2023-07-17 12:00 | disposition home or self-care (01) ==
PROVIDERS: PCP Physician Assistant; Referring Provider Internal Medicine Nephrology; Visit Provider Physician Assistant
DX: E87.1 Hypo-osmolality and hyponatremia (principal); E55.9 Vitamin D deficiency, unspecified; E11.9 Type 2 diabetes mellitus without complications; R53.83 Other fatigue; Z79.4 Long term (current) use of insulin
CPT/HCPCS: 36415; 80053; 80061; 80069; 82043; 82306; 82607; 82746; 83036; 84443; 85025

== ENCOUNTER 2023-08-24 01:02 | Day surgery (SDC) | payer MEDICARE, SELFPAY ==
[2023-08-15 15:27] VITALS: BMI 31.1
--- NOTE | 2023-08-22 10:29 | SUR.PREOP ---
Patient called regarding upcoming procedure. Reviewed preop instructions, appointment times, and procedure prep.
[2023-08-24 10:52] VITALS: BP 140/59; PULSE 91; RESP 18; TEMP 36.6; O2SAT 100; BMI 32.0
--- NOTE | 2023-08-24 11:27 | PM.HPGS ---
History of Present Illness History of Present Illness Consent: Risks, benefits, and alternatives have been discussed and questions answered. Patient agrees to proceed with procedure. Chief complaint: esophageal varices Narrative: Lou Islas is a 68 year old female Presents for screening EGD. Patient identified as having grade 1 esophageal varices 1-2 years ago. She is known to have alcoholic cirrhosis of liver. She presents today for surveillance EGD she denies abdominal pain. She has had no bleeding. Family history noncontributory. Review of Systems Review of Systems: Review of systems noncontributory. [facility] Past Medical History Medical History Alcohol abuse Alcoholic cirrhosis of liver Carotid artery disease Chronic anemia Chronic hyponatremia Diastolic dysfunction Echocardiogram on 01/14/2021 showed normal left ventricular systolic function with an estimated EF of 60 to 65% as well as grade 1 diastolic dysfunction. Eczema Gastroesophageal reflux disease GERD (gastroesophageal reflux disease) Hypertension Insulin dependent type 2 diabetes mellitus Hemoglobin A1c was 5.4% on 01/14/2021. Left-sided carotid artery disease Carotid Doppler ultrasound on 01/14/2021 showed 50 to 69% stenosis in the left internal carotid artery. Orthostatic hypotension An ongoing issue for the patient. She has had several syncopal episodes over the years leading to falls and fractures. ANTHONY (obstructive sleep apnea) Osteoarthritis Periprosthetic fracture of femur following total replacement of hip (01/2020) Non operative treatment. Surgical History Surgical History History of bilateral cataract extraction History of hysterectomy (2005) Due to uterine fibroids and endometriosis. History of lumbar surgery (2005) L1-L3. History of right hip replacement (2005) Per Dr. Curiel in [place]. Status post open reduction with internal fixation of fracture (05/30/21) ORIF of comminuted intra-articular fracture of the distal left femur, done at [facility]. Family History Family History Father Afib Heart attack Mother Hypertension Diabetes mellitus COPD (chronic obstructive pulmonary disease) Sibling Diabetes mellitus Amputation above knee Father , At age 50 Acute myocardial infarction Sibling , At age 50 Pancreatic cancer Social History Social History Social History: The patient lives in her own home in [place]. She has been twice, her 1st and she has since her 2nd . She has no children. She moved to this area within the last couple of years from [place] to be close to her 3 remaining siblings. 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 She has recently retired.She smoked up to 2 packs of cigarettes a day before quitting in 2005. She drinks 2 mixed drinks a day, each containing a shot of vodka which equals out to about 1 L to 1.7 L of vodka a week. She denies illicit substance use. Surrogate decision maker: Miladys Jensen, sister. Code status: Full code. Smoking packs per day: 2 Smoking cigarettes per day: 40.0 Years smoked: 30 Smoking pack-years: 60.00 Smoking status: Former smoker Tobacco type: cigarettes Smokeless tobacco user: chewing tobacco Alcohol intake: current Drinks per week: 14 Lack of Transportation: No Lack of Food: Never True Current Housing: I Have Housing Concerned About Future Housing: No Difficulty Paying Gas/Electric Bills: No Difficulty Paying for Meds: No Currently Unemployed: No Education: Master's Degree or Higher Difficulty w/ Childcare or Family Care: No Living arrangements: alone Occupation/Education: ret
[2023-08-24] MEDS: LACTATED RINGERS 1,000 ML 150 ML IV CONT (11:29)
[2023-08-24 11:30] LABS: Glucose Point of Care 94 mg/dl (65-105)
[2023-08-24 12:20] VITALS: BP 154/82; PULSE 80; RESP 20; O2SAT 100
[2023-08-24 12:30] VITALS: BP 136/66; PULSE 78; RESP 20; O2SAT 100
[2023-08-24 12:40] VITALS: BP 164/85; PULSE 85; RESP 20; O2SAT 100
--- NOTE | 2023-08-24 12:54 | SUR.PHASEII ---
1240: PT VOMITED MODERATE AMOUNT OF THICK MUCOUS, STATES SHE FEELS MUCH BETTER, PT AWAKE AND TALKING WITHOUT DIFFICULTY, PT DENIES ANYMORE NAUSEA.
== END 2023-08-24 12:59 | disposition home or self-care (01) ==
PROVIDERS: PCP Physician Assistant; Visit Provider Internal Medicine Gastroenterology
PROC: 0DJ08ZZ Inspection of Upper Intestinal Tract, Via Natural or Artificial Opening Endoscopic (ICD-10-PCS; CPT 43235; principal; 2023-08-24 11:30)
DX: K70.30 Alcoholic cirrhosis of liver without ascites (principal); I85.10 Secondary esophageal varices without bleeding; I11.9 Hypertensive heart disease without heart failure; D64.9 Anemia, unspecified; K21.9 Gastro-esophageal reflux disease without esophagitis; E11.9 Type 2 diabetes mellitus without complications; G47.33 Obstructive sleep apnea (adult) (pediatric); I95.1 Orthostatic hypotension; I65.22 Occlusion and stenosis of left carotid artery; Z87.891 Personal history of nicotine dependence; Z79.82 Long term (current) use of aspirin; Z79.4 Long term (current) use of insulin
CPT/HCPCS: 43244; 82948; J2704; J7120

== ENCOUNTER 2023-08-25 10:19 | Outpatient (CLI) | payer MEDICARE, SELFPAY ==
--- NOTE | ~2023-08-25 | MR_ITS ---
MRI of the lumbar spine Clinical History: Radiculopathy Technique: Axial T2-weighted images, and sagittal T1-weighted, T2-weighted, and T2 fat-sat images wer e acquired. Findings: There are chronic compression fracture deformities of T11, L1, L2, L4, and L5, with moderat e loss of height of these vertebral bodies. No bone marrow edema seen. There is 3 mm anterolisthesis of L4 over L5. At L1-L2, there is disc bulge and mild facet arthropathy, with moderate central canal stenosis/thecal sac compression. There is moderate to advanced bilateral neural foraminal narrowing. At L2-L3, there is mild disc bulge and mild facet arthropathy. There is minimal central canal stenosi s. There is moderate to advanced bilateral neural foraminal narrowing. At L3-L4, disc bulge and severe facet arthropathy result in severe spinal canal stenosis/thecal sac c ompression. There is severe bilateral neural foraminal narrowing, left worse than right. At L4-L5, there is disc bulge and severe facet arthropathy, severe spinal canal stenosis/thecal sac c ompression. There is severe left neural foraminal narrowing, and moderate right neural foraminal narr owing. At L5-S1, there is minimal disc bulge. No spinal canal stenosis. There is severe left neural foramina l narrowing, and moderate to severe right neural foraminal narrowing. Paravertebral soft tissues are unremarkable. Impression: Multiple chronic compression fracture deformities, involving T11, L1, L2, L4, and L5. 3 mm anterolisthesis of L4 over L5. Severe degenerative spondylosis throughout the lumbar spine, probably worst at L3-L4 and L4-L5. Pleas e see details above. Reviewed, dictated and finalized at [facility]. ER Impression: Multiple chronic compression fracture deformities, involving T11, L1, L2, L4, a nd L5. 3 mm anterolisthesis of L4 over L5. Severe degenerative spondylosis throughout the lumbar spine, probably worst at L3-L4 and L4-L5. Please see details above.
== END 2023-08-25 10:20 | disposition home or self-care (01) ==
PROVIDERS: PCP Physician Assistant; Visit Provider Anesthesiology Pain Medicine
DX: M54.16 Radiculopathy, lumbar region (principal); M48.56XA Collapsed vertebra, not elsewhere classified, lumbar region, initial encounter for fracture; M43.16 Spondylolisthesis, lumbar region
CPT/HCPCS: 72148

== ENCOUNTER 2023-09-25 11:15 | Outpatient (CLI) | payer MEDICARE, SELFPAY ==
[2023-09-25 12:24] LABS: Anion Gap 7 mmol/L (8-16); Blood Urea Nitrogen 14 mg/dL (7-17); Calcium 9.2 mg/dL (8.4-10.2); Carbon Dioxide 26 mmol/L (22-30); Chloride 95 mmol/L (98-107); Estimated Glomerular Filt Rate 45; Glucose 110 mg/dL (65-110); Phosphorus 3.3 mg/dL (2.5-4.5); Potassium 4.2 mmol/L (3.4-5.0); Sodium 128 mmol/L (137-145)
[2023-09-25 12:33] LABS: Parathyroid Intact 67.1 pg/mL (7.5-53.5)
[2023-09-25 12:37] LABS: Total Protein Urine Random 16 mg/dL; Ur Ttl Prot Creatinine Ratio 0.33 mg/mg (0-0.20)
== END 2023-09-25 11:16 | disposition home or self-care (01) ==
LOC: ANHLAB 11:19
PROVIDERS: PCP Physician Assistant; Visit Provider Internal Medicine Nephrology
DX: E87.1 Hypo-osmolality and hyponatremia (principal); N18.32 Chronic kidney disease, stage 3b; I12.9 Hypertensive chronic kidney disease with stage 1 through stage 4 chronic kidney disease, or unspecified chronic kidney disease; N25.81 Secondary hyperparathyroidism of renal origin
CPT/HCPCS: 36415; 80069; 82570; 83970; 84156

== ENCOUNTER 2023-10-20 09:34 | Inpatient (IN) | payer MEDICARE, SELFPAY ==
[2023-10-20] VITALS (10 sets, daily range): BP systolic 102–123; BP diastolic 47–74; PULSE 83–93; RESP 16–20; TEMP 36.3–36.8; O2SAT 96–100; BMI 37.4
--- NOTE | 2023-10-20 | ECHO_ITS ---
Patient Info Name: Lou Islas Age: 68 years : 1955 Gender: Female Ht: 65 in Wt: 205 lbs BSA: 2.10 m2 HR: 85 bpm BP: 110 / 47 mmHg Technical Quality: Fair Exam Date: 10/20/2023 4:27 PM Exam Location: Echo Lab Patient Status: Outpatient Admit Date: 10/20/2023 Staff Ordering Physician: Kathleen Dc APRN Attending Provider: Senait Torres MD Referring Physician: Vanda GUTIERREZ; Exam Type: CA echo doppler color flow Study Info Complete two-dimensional, color flow and Doppler transthoracic echocardiogram is performed. Summary 1. Complete two-dimensional, color flow and Doppler transthoracic echocardiogram is performed. 2. Left ventricular chamber dimension is normal. 3. Left ventricular systolic function is normal, estimated at 60-65%. 4. The left ventricular diastolic function is abnormal. 5. E/e' 22 is elevated. 6. Left atrial chamber dimension is moderately enlarged. 7. Right atrial chamber dimension is moderately enlarged. 8. There is mild aortic valve regurgitation. 9. The mitral valve has moderately calcified annulus. 10. There is mild mitral valve regurgitation. 11. There is mild tricuspid valve regurgitation. 12. There is mild-moderate circumferential pericardial effusion with maximum amount at 1.2 cm posteriorly. Left Ventricle E/e' 22 is elevated. Left ventricular chamber dimension is normal. Left ventricular systolic function is normal, estimated at 60-65%. The left ventricular diastolic function is abnormal. Right Ventricle Right ventricular chamber dimension is normal. Right ventricular systolic function is normal. Left Atria Left atrial chamber dimension is moderately enlarged. Right Atria Right atrial chamber dimension is moderately enlarged. Aortic Valve The aortic valve is trileaflet. There is no aortic valve stenosis. There is mild aortic valve regurgitation. Pulmonic Valve There is no pulmonic regurgitation. Mitral Valve The mitral valve has moderately calcified annulus. There is no mitral valve stenosis. There is mild mitral valve regurgitation. Tricuspid Valve RVSP is not calculated due to an inadequate TR jet. There is mild tricuspid valve regurgitation. Pericardium/Pleural There is mild-moderate circumferential pericardial effusion with maximum amount at 1.2 cm posteriorly. No cardiac tamponade. Inferior Vena Cava Normal inferior vena cava with >50% collapse upon inspiration consistent with normal right atrial pressure, 5 mmHg. Aorta The aortic root size at the sinus of Valsalva is normal. Left Ventricular Outflow Tract Name Value Normal LVOT 2D LVOT Diameter 2.1 cm LVOT Doppler LVOT Peak Gradient 5 mmHg LVOT Mean Gradient 3 mmHg LVOT VTI 27 cm LVOT VTI/AV VTI Ratio 0.7 LVOT Stroke Volume 91 ml LVOT CO 7.8 l/min LVOT CI 3.7 l/min/m2 Pulmonic Valve Name Value Normal
--- NOTE | ~2023-10-20 | US_ITS ---
EXAMINATION: US venous doppler [facility] DATE: 10/22/2023 18:10 INDICATION: Bilateral lower limb swelling TECHNIQUE: Bryant scale images without and with compression and Doppler images of the bilateral lower e xtremity veins were obtained. COMPARISON: None FINDINGS: The right common femoral vein, profunda femoral vein, femoral vein, popliteal vein, peroneal trunk, p osterior tibial veins, and greater saphenous vein are patent. The left common femoral vein, profunda femoral vein, femoral vein, popliteal vein, peroneal trunk, po sterior tibial veins, and greater saphenous vein are patent. IMPRESSION: 1. Patent bilateral lower extremity veins. No evidence of deep venous thrombosis. Reviewed, dictated and finalized at location F. [facility] IMPRESSION: 1. Patent bilateral lower extremity veins. No evidence of deep venous thrombosi s.
--- NOTE | ~2023-10-20 | XR_ITS ---
XR chest 1V portable DATE: 10/20/2023 14:20 INDICATION: Congestive heart failure TECHNIQUE: Portable upright AP chest on 10/20/2023 at 1419 hours COMPARISON: 01/13/2021 AP chest FINDINGS: Cardiomegaly. Pulmonary vascular congestion and redistribution. Mild infiltrate or atelectasis is suggested in the lower lung zones. Diffuse osteopenia. Degenerative change of the thoracic spine. IMPRESSION: Cardiomegaly, pulmonary vascular congestion, consistent with CHF Mild lower lung infiltrate or atelectasis is suggested Reviewed, dictated and finalized at location [facility]. [employer]
[2023-10-20 10:25] LABS: Basophils Percent Auto 0.5 % (0.2-1.2); Eosinophils Absolute Auto 0.3 K/mm3 (0-0.3); Eosinophils Percent Auto 5.5 % (0-4.4); Hematocrit 29.2 % (37.0-47.0); Immature Granulocyte Absolute 0.05 K/mm3 (0.00-0.031); Immature Granulocyte Percent A 0.8 % (0-0.5); Lymphocytes Absolute Auto 0.65 K/mm3 (0.9-3.2); Lymphocytes Percent Auto 10.9 % (18.3-44.2); Mean Corpuscular HGB Conc 34.2 g/dl (32-36); Mean Corpuscular Volume 99.3 fl (80-100); Mean Platelet Volume 10.1 fl (7.4-10.4); Monocytes Absolute Auto 0.6 K/mm3 (0.1-0.6); Monocytes Percent Auto 9.9 % (2.6-8.5); Neutrophils Absolute Auto 4.3 K/mm3 (1.3-6.7); Neutrophils Percent Auto 72.4 % (45.5-73.1); Platelet Count Result 145 k/mm3 (150-375); Red Blood Count 2.94 M/mm3 (4.2-5.4); Red Cell Distribution Width 12.5 % (11.5-14.5)
[2023-10-20 10:38] LABS: INR 1.2; Prothrombin Time 16.1 Seconds (11.1-14.7)
[2023-10-20 10:39] LABS: Partial Thromboplastin Time 33.9 SECONDS (22.3-36.8)
[2023-10-20 10:45] LABS: NT Pro B Type Natriuretic Pept 4340 pg/mL (19.9-100)
--- NOTE | 2023-10-20 10:47 | PC.NURSE ---
2 OJ from patient fridge given to patient. Instructed patient to drink. Will recheck patient blood glucose.
[2023-10-20 10:48] LABS: Alanine Aminotransferase 23 U/L (6-35); Albumin Level 3.7 g/dL (3.5-5.1); Alkaline Phosphatase 280 U/L (38-126); Anion Gap 9 mmol/L (8-16); Aspartate Amino Transferase 48 U/L (14-36); Bilirubin,Total 1.9 mg/dL (0.2-1.3); Blood Urea Nitrogen 8 mg/dL (7-17); Calcium 8.6 mg/dL (8.4-10.2); Carbon Dioxide 27 mmol/L (22-30); Chloride 86 mmol/L (98-107); Estimated CRCL calculation 45 ml/min; Estimated Glomerular Filt Rate 45; Glucose 60 mg/dL (65-110); Potassium 3.2 mmol/L (3.4-5.0); Sodium 122 mmol/L (137-145)
--- NOTE | 2023-10-20 11:17 | ED.GENADULT ---
HPI - General Adult General Chief complaint: Extremity Problem,Nontraumatic Stated complaint: legs are swollen Time Seen by Provider: 10/20/23 09:41 History of Present Illness HPI narrative: patient is a 68-year-old female who presents ER with edema to her lower extremities and abdomen. Reports she has chronic edema that is typically just below her knees. She has chronic skin changes to these areas due to her chronic edema. She takes Lasix 20 mg daily. Over the last 2 weeks she has noticed the edema moving up into her thighs as well as her lower abdomen. She has increased her Lasix to 40 mg daily for the last week. She has seen no improvement. No fevers or chills or sweats. No chest pain or chest pressure. Denies orthopnea. She is now productive cough. Denies history of DVT. She is not on any blood thinning medications. Related Data Home Medications Medication Instructions Recorded Confirmed omeprazole magnesium 20 mg 20 mg PO DAILY 02/09/20 09/27/23 tablet,delayed release (Prilosec OTC) diphenhydramine HCl 25 mg tablet 25 mg PO DAILY PRN Allergy Symptoms 03/31/20 09/27/23 (Benadryl Allergy) fluticasone propionate 50 1 spray intranasal DAILY PRN 08/16/20 09/27/23 mcg/actuation nasal allergies spray,suspension mecobalamin (vitamin B12) 1,000 3,000 mcg PO DAILY 05/13/21 09/27/23 mcg chewable tablet pyridoxine (vitamin B6) 100 mg 100 mg PO DAILY 05/13/21 09/27/23 tablet ferrous sulfate 325 mg (65 mg 325 mg PO DAILY 06/06/21 09/27/23 iron) tablet magnesium oxide 400 mg (241.3 mg 250 mg PO QAM 06/06/21 09/27/23 magnesium) tablet sodium chloride 1 gram tablet 1 g PO QAM 06/06/21 09/27/23 aspirin 81 mg chewable tablet 324 mg PO DAILY 06/28/21 09/27/23 (Aspirin Childrens) Allergies Allergy/AdvReac Type Severity Reaction Status Date / Time codeine AdvReac Unknown Headache Verified 09/27/23 12:00 Review of Systems Review of Systems: All systems reviewed & are unremarkable except as noted in HPI and below Constitutional: Constitutional: Denies chills, Denies fatigue and Denies fever(s) ENT: Reports system reviewed and no additional complaints, except as documented Cardiovascular: Cardiovascular: Reports no additional cardiovascular complaints Respiratory: Respiratory: Reports no additional respiratory complaints Gastrointestinal: Gastrointestinal: Reports no additional gastrointestinal complaints Musculoskeletal: Musculoskeletal: Denies arthralgias and Denies joint swelling Comments: Leg edema PMFSH Past Medical History Medical History Alcohol abuse Alcoholic cirrhosis of liver Carotid artery disease Chronic anemia Chronic hyponatremia Diastolic dysfunction Echocardiogram on 01/14/2021 showed normal left ventricular systolic function with an estimated EF of 60 to 65% as well as grade 1 diastolic dysfunction. Eczema Gastroesophageal reflux disease GERD (gastroesophageal reflux disease) Hypertension Insulin dependent type 2 diabetes mellitus Hemoglobin A1c was 5.4% on 01/14/2021. Left-sided carotid artery disease Carotid Doppler ultrasound on 01/14/2021 showed 50 to 69% stenosis in the left internal carotid artery. Orthostatic hypotension An ongoing issue for the patient. She has had several syncopal episodes over the years leading to falls and fractures. ANTHONY (obstructive sleep apnea) Osteoarthritis Periprosthetic fracture of femur following total replacement of hip (01/2020) Non operative treatment. Surgical History Surgical History History of bilateral cataract extraction History of hysterectomy (2005) Due to uterine fibroids and endometriosis. History of lumbar surgery (2005) L1-L3. History of right hip replacement (2005) Per Dr. Curiel in [place]. Status post open reduction with internal fixation of fracture (05/30/21) ORIF of comminuted intra-ar
[2023-10-20] MEDS: FUROSEMIDE INJ 40 MG/4 ML VIAL IV PUSH ×2 (11:41→20:34)
[2023-10-20 11:43] LABS: Glucose Point of Care 115 mg/dl (65-105)
--- NOTE | 2023-10-20 12:21 | PC.NURSE ---
external catheter placed on patient.
--- NOTE | 2023-10-20 15:20 | ADMGEN ---
This patient, Lou Islas, was admitted to Medical Room 246-01. Patient/family oriented to hospital policies and general routines including ID bracelet, bed and alarms, visiting hours, pain management, procedures, bathroom and other care routines, personal items, smoking policy, room service/diet, and visiting hours. Information on how to activate the Rapid Response Team has been discussed. Patient/Family are encouraged to report perceived risks to care and to ask questions if they do not understand what they are told or what they should do.
[2023-10-20 19:44] LABS: Glucose Point of Care 141 mg/dl (65-105)
--- NOTE | 2023-10-20 22:41 | PM.IMHP ---
H&P: HPI History of Present Illness Date/Time: 10/20/23 22:41 Chief Complaint: Swelling Narrative: 68-year-old female presents here with bilateral lower extremity swelling and lower abdominal swelling with past medical history of cirrhosis (r/t ETOH w/simultaneous opioid use), anemia, chronic hyponatremia, diastolic dysfunction, GERD, DM, ANTHONY, osteoarthritis, and renal insufficiency. Patient presents here with chronic lower extremity edema that has recently worsened. Around 10/09 patient began to notice swelling in her thighs that slowly progressed to her groin. Around 3-4 days later the swelling that extended to her lower abdomen. Patient attempted to treat at home by doubling Lasix. States she is normally on 20 mg daily and has been taking 40 mg for the last 7 days. Patient reported no improvement with increase in diuretic. Unclear when patient began having skin changes to her BLE. Currently has discoloration, crusting, and bumpy appearance without active drainage or odor. Patient reports they have been like that for awhile but are currently tender due to the swelling. She denies any history of DVTs, PE, or CVA. Not currently on a blood thinner. Is currently an everyday drinker, 2 mixed drinks with underlying cirrhosis. [facility] Past Medical History Medical History Alcohol abuse Alcoholic cirrhosis of liver Carotid artery disease Chronic anemia Chronic hyponatremia Diastolic dysfunction Echocardiogram on 10/20/2023 showed normal left ventricular systolic function with an estimated EF of 60 to 65% as well as abnormal diastolic dysfunction. Eczema Gastroesophageal reflux disease GERD (gastroesophageal reflux disease) Hypertension Insulin dependent type 2 diabetes mellitus Hemoglobin A1c was 4.8 % on 07/17/2023. Left-sided carotid artery disease Carotid Doppler ultrasound on 01/14/2021 showed 50 to 69% stenosis in the left internal carotid artery. Orthostatic hypotension An ongoing issue for the patient. She has had several syncopal episodes over the years leading to falls and fractures. ANTHONY (obstructive sleep apnea) Osteoarthritis Periprosthetic fracture of femur following total replacement of hip (01/2020) Non operative treatment. Renal insufficiency Surgical History Surgical History History of bilateral cataract extraction History of hysterectomy (2005) Due to uterine fibroids and endometriosis. History of lumbar surgery (2005) L1-L3. History of right hip replacement (2005) Per Dr. Curiel in [place]. Status post open reduction with internal fixation of fracture (05/30/21) ORIF of comminuted intra-articular fracture of the distal left femur, done at [facility]. Family History Family History Father Heart attack Mother Diabetes mellitus COPD (chronic obstructive pulmonary disease) Hypertension Afib Sibling Amputation above knee Diabetes mellitus Father , At age 50 Acute myocardial infarction Sibling , At age 50 Pancreatic cancer Social History Social History Social History: The patient lives in her own home in [place]. She has been twice, her 1st and she has since her 2nd . She has no children. She moved to this area within the last couple of years from [place] to be close to her 3 remaining siblings. 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 She drinks 2 mixed drinks a day, each containing a shot of vodka which equals out to about 1 L to 1.7 L of vodka a week. She denies illicit substance use. Surrogate decision maker: Miladys Mikey, sister. Code status: Full code.
[2023-10-21] MEDS: HYDROcodone/acetaminophen (*CRX) 5-325 MG TABLET 1 TAB PO ×2 (00:01→23:09)
[2023-10-21 01:21] LABS: Creatinine Urine 59.1 mg/dL
[2023-10-21 01:45] LABS: Sodium Urine Random 20 meq/L
[2023-10-21 04:11] VITALS: BP 110/55; PULSE 87; RESP 16; TEMP 36.4; O2SAT 97
[2023-10-21 05:19] LABS: Alanine Aminotransferase 19 U/L (6-35); Alkaline Phosphatase 243 U/L (38-126); Anion Gap 7 mmol/L (8-16); Aspartate Amino Transferase 42 U/L (14-36); Bilirubin,Total 1.5 mg/dL (0.2-1.3); Blood Urea Nitrogen 9 mg/dL (7-17); Calcium 8.4 mg/dL (8.4-10.2); Carbon Dioxide 28 mmol/L (22-30); Chloride 88 mmol/L (98-107); Estimated CRCL calculation 41 ml/min; Estimated Glomerular Filt Rate 37; Glucose 127 mg/dL (65-110); Potassium 3.3 mmol/L (3.4-5.0); Sodium 123 mmol/L (137-145)
[2023-10-21 07:43] LABS: Glucose Point of Care 129 mg/dl (65-105)
[2023-10-21] MEDS: FOLIC ACID 1 MG TABLET PO (08:50)
[2023-10-21] MEDS: CYANOCOBALAMIN 1,000 MCG TABLET 1000 MCG PO (08:51)
[2023-10-21] MEDS: PANTOPRAZOLE 40 MG TABLET PO (08:51)
[2023-10-21] MEDS: FERROUS SULFATE 325 MG TABLET DR BY MOUTH (08:51)
[2023-10-21] MEDS: SPIRONOLACTONE 25 MG TABLET PO (08:51)
[2023-10-21] MEDS: THERAPEUTIC MULTIVITAMINS/MINERALS TAB (*BKC) 1 TABLET PO (08:51)
[2023-10-21] MEDS: ATORVASTATIN 10 MG TABLET PO (08:51)
[2023-10-21] MEDS: THIAMINE HCL 100 MG TABLET PO (08:52)
[2023-10-21] MEDS: SODIUM CHLORIDE 1 GM TABLET PO ×2 (08:52→20:00)
[2023-10-21] MEDS: INSULIN ASPART (*BKC) 100 UNITS/ML SUB-Q ×3 (08:55→17:42)
[2023-10-21] MEDS: ASPIRIN 81 MG CHEWABLE TABLET 324 MG PO (08:55)
[2023-10-21] MEDS: FUROSEMIDE INJ 40 MG/4 ML VIAL IV PUSH (08:55)
[2023-10-21] MEDS: POTASSIUM CHLORIDE 20 MEQ ER TABLET 40 MEQ PO (11:24)
[2023-10-21] MEDS: PYRIDOXINE HCL 50 MG TABLET 100 MG PO (11:26)
[2023-10-21] MEDS: MAGNESIUM OXIDE 400 MG TABLET 250 MG PO (11:28)
--- NOTE | 2023-10-21 11:30 | PM.CNNEP ---
Assessment and Plan Assessment and plan (1) Chronic hyponatremia: Code(s): E87.1 - Hypo-osmolality and hyponatremia Status: Chronic Assessment and Plan: chronic issue that dates back several years has been as low as 117mmol/L in the past during that time/hospitalization, she required 3% saline, normal saline, salt tabs, lasix, and fluid restriction for treatment baseline sodium runs around 126 - 132mmol/L although seems closer to 127 - 130mmol/L in the last few years previous extensive work-up (TSH, cortisol, SPE, UPE...etc) was essentially negative it was felt her hyponatremia was related to her alcohol use and renal insufficiency along with underlying liver disease her lower sdoium now may be related to her fluid retention issues... continue salt tabs with IV diuretics for now follow trend of sodium with current therapy/interventions (2) Chronic kidney disease, stage 3: Code(s): N18.30 - Chronic kidney disease, stage 3 unspecified Status: Chronic Assessment and Plan: baseline creatinien runs ~ 1.2 - 1.7mg/dl this causes her to fluctuate between CKD stage 3A and stage 3B presumably related to her CHF, previous HTN (not an issue now), DM, and vascular disease (3) Anasarca: Code(s): R60.1 - Generalized edema Status: Acute Assessment and Plan: as evidence by clinical exam and imaging on admission agree with IV diuresis continue fluid restriction follow I/Os and daily weights (4) Bilateral lower extremity edema: Code(s): R60.0 - Localized edema Status: Chronic Assessment and Plan: chronic issue at baseline thought to be due to chronic venous stasis/insufficiency however, seems acutely worse probably due to #3 (5) Hypokalemia: Code(s): E87.6 - Hypokalemia Status: Acute Assessment and Plan: suspect secondary to increased dosage of oral diuretic prior to admission replete as needed with IV diuresis spironolactone use should help as well follow trend of K+ (6) Diabetes mellitus: Qualifiers: Diabetes mellitus complication status: without complication Diabetes mellitus terminal superintendent insulin use: with terminal superintendent use Diabetes mellitus type: type 2 Qualified Code(s): E11.9 - Type 2 diabetes mellitus without complications; Z79.4 - truck terminal manager (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 hospitalists I will continue to follow the patient with you while she remains hospitalized and make further recommendations as needed. Thank you for allowing me to participate in care this patient. History of Present Illness Reason for Consult Consult date: 10/21/23 Reason for consult: chronic renal failure and hyponatremia Chief Complaint Chief complaint: Anasarca History of Present Illness Narrative: The patient is a 68-year-old female with a past medical history as outlined below presented to [facility] Emergency room due to worsening lower extremity swelling and edema. The patient has known chronic lower extremity edema bilaterally secondary to chronic venous stasis changes /venous insufficiency. However, she has noted and the last 4-5 days if not longer that the swelling in her lower extremity seems to have progressively worsened and has extended up to her lower abdomen. In effort to compensate for this issue, she increased her oral diuretic therapy from to any mg of Lasix to 40 mg of Lasix once a day this has not improved her clinical situation. Furthermore, she has noted some increasing shortness of breath as well which has limited her mobility and ambulation status. Given these constellation of symptoms, she presented to the emergency room for further assessment. Workup and evaluation in the emergency room demonstrated the patient to be hemodynamically
--- NOTE | 2023-10-21 11:30 | P.CONNP_ITS ---
Assessment and Plan Assessment and plan (1) Chronic hyponatremia: Code(s): E87.1 - Hypo-osmolality and hyponatremia Status: Chronic Assessment and Plan: * chronic issue that dates back several years * has been as low as 117mmol/L in the past * during that time/hospitalization, she required 3% saline, normal saline, salt tabs, lasix, and fluid restriction for treatment * baseline sodium runs around 126 - 132mmol/L although seems closer to 127 - 130mmol/L in the last few years * previous extensive work-up (TSH, cortisol, SPE, UPE...etc) was essentially negative * it was felt her hyponatremia was related to her alcohol use and renal insufficiency along with underlying liver disease * her lower sdoium now may be related to her fluid retention issues... * continue salt tabs with IV diuretics for now * follow trend of sodium with current therapy/interventions (2) Chronic kidney disease, stage 3: Code(s): N18.30 - Chronic kidney disease, stage 3 unspecified Status: Chronic Assessment and Plan: * baseline creatinien runs ~ 1.2 - 1.7mg/dl * this causes her to fluctuate between CKD stage 3A and stage 3B * presumably related to her CHF, previous HTN (not an issue now), DM, and vascular disease (3) Anasarca: Code(s): R60.1 - Generalized edema Status: Acute Assessment and Plan: * as evidence by clinical exam and imaging on admission * agree with IV diuresis * continue fluid restriction * follow I/Os and daily weights (4) Bilateral lower extremity edema: Code(s): R60.0 - Localized edema Status: Chronic Assessment and Plan: * chronic issue at baseline * thought to be due to chronic venous stasis/insufficiency * however, seems acutely worse probably due to #3 (5) Hypokalemia: Code(s): E87.6 - Hypokalemia Status: Acute Assessment and Plan: * suspect secondary to increased dosage of oral diuretic prior to admission * replete as needed with IV diuresis * spironolactone use should help as well * follow trend of K+ (6) Diabetes mellitus: Qualifiers: Diabetes mellitus complication status: without complication Diabetes mellitus residential insulin use: with plant clerk use Diabetes mellitus type: type 2 Qualified Code(s): E11.9 - Type 2 diabetes mellitus without complications; Z79.4 - skilled nursing (current) use of insulin Code(s): E11.9 - Type 2 diabetes mellitus without complications Status: Chronic Assessment and Plan: * follow accu-cheks * glyceminc control per hospitalists I will continue to follow the patient with you while she remains hospitalized and make further recommendations as needed. Thank you for allowing me to participate in care this patient. History of Present Illness Reason for Consult Consult date: 10/21/23 Reason for consult: chronic renal failure and hyponatremia Chief Complaint Chief complaint: Anasarca History of Present Illness Narrative: The patient is a 68-year-old female with a past medical history as outlined below presented to [facility] Emergency room due to worsening lower extremity swelling and edema. The patient has known chronic lower extremity edema bilaterally secondary to chronic venous stasis changes /venous insufficiency. However, she has noted and the last 4-5 days if not longer that the swelling in her lower extremity seems to have progressively worsened and has extended up to her lower abdomen. In effort to compensate for this issue, she increased her oral diuretic therapy fro
--- NOTE | 2023-10-21 12:07 | PM.IMPN ---
Progress Note: A&P Assessment and Plan (1) Anasarca: Code(s): R60.1 - Generalized edema Status: Acute Assessment and Plan: DDx: Acute on chronic CHF, anasarca secondary to cirrhosis, worsening renal insufficiency. Less likely malnutrition or nephrotic syndrome. BNP 4340, significantly elevated compared to prior. Echo ordered/updated and showed normal left ventricular systolic function with an estimated EF of 60 to 65% as well as abnormal diastolic dysfunction. Similar to previous on 10/19/21. Takes 20 of Lasix daily. Increase to 40 of Lasix x7 days. CXR showed cardiomegaly, pulmonary vascular congestion, consistent with CHF, mild lower lung infiltrate or atelectasis is suggested. No infectious symptoms or elevation in WBC, more likely atelectasis. Also reports she is still drinking 2 mixed drinks per day (states they are mixed weakly) but has previously reported that each contain a shot of vodka which equals out to about 1 L to 1.7 L of vodka a week.? Current total bilirubin is 1.9, AST is 48, ALT 23, alk-phos 280 which all appear to be around her baseline. TSH 1.6 on 07/17/2023. Suspect worsening edema is combination of continued ETOH use and volume overload secondary to CHF. Will continue Lasix at 40 mg IVP daily and add spironolactone 25 mg PO daily. continue to trend renal function and electrolytes. fluid restriction to 1.5 L/day. monitor I&Os and daily weights. (2) Bilateral lower extremity edema: Code(s): R60.0 - Localized edema Status: Acute Assessment and Plan: Reported chronic edema to bilateral lower extremities for a long time . per chart review was present at PCP visit in 2019, however not to this extent. Unclear when skin changes began. Given symmetric appearance, normal white count, no odor, or excessive warmth to the touch suspect the skin changes are related to longstanding venous stasis/insufficiency. Will consult wound for assistance. No antibiotics at this time. Diuresing. (3) Hypokalemia: Code(s): E87.6 - Hypokalemia Status: Acute Assessment and Plan: Intermittent since July. Was prescribed p.o. potassium supplement at home. Has recently increased Lasix to 40 p.o. (previously on 20) in the last week. K currently 3.2, previously 4.2 on 09/25. Will increase home K supplementation from 20 to 40 daily, will keep p.o. due to current fluid restriction. (4) Chronic hyponatremia: Code(s): E87.1 - Hypo-osmolality and hyponatremia Status: Acute Assessment and Plan: Sodium currently 122. Has run from 122-129 in the past year. Suspect this is secondary to chronic alcohol use and renal insufficiency, has been present since 2019 at varying levels. Has had history of noncompliance with salt tabs. Will continue home salt tabs and utilize fluid restriction. Adding urine osmolality, urine sodium, urine creatinine, and osmolality. Consider consultation to Nephrology if no improvement. (5) Renal insufficiency: Code(s): N28.9 - Disorder of kidney and ureter, unspecified Status: Acute Assessment and Plan: Currently follows with Nephrology for renal insufficiency and chronic hyponatremia with most recent visit on 09/27/2023. Baseline creatinine appears to be 1.3-1.7. Creatinine currently 1.2, unchanged from September 2023. Continue to monitor renal function, currently increasing diuresis. (6) Alcohol abuse: Code(s): F10.10 - Alcohol abuse, uncomplicated Status: Acute Assessment and Plan: Continues to drink daily, reports making two weak mix drinks everyday. Has previously reported 1 shot of vodka per drink. Reports this reduction is significantly less than what she used to drink. Current total bilirubin is 1.9, AST is 48, ALT 23, alk-phos 280 which all appear to be around her baseline. No jaundice on exam. Previous recommendations for AA and cessation have been made, patient does not appear
[2023-10-21 12:14] LABS: Glucose Point of Care 168 mg/dl (65-105)
[2023-10-21 14:00] VITALS: BP 121/56; PULSE 94; RESP 14; TEMP 36.6; O2SAT 96
[2023-10-21] MEDS: TOLNAFTATE 1% POWDER 45 GM BTL 1 APPLIC TOPICAL (14:00)
--- NOTE | 2023-10-21 14:54 | ECG_ITS ---
Measurements Intervals [place] Rate: 93 P: 64 RI: 206 QRS: 70 QRSD: 77 T: -5 QT: 337 QTc: 420 Interpretive Statements SINUS RHYTHM LOW QRS VOLTAGE- DIFFUSE LEADS BORDERLINE T WAVE ABNORMALITY- ANTERIOR LEADS BASELINE ARTIFACT- AVF, V6 BORDERLINE ECG COMPARED TO ECG 06/06/2021 02:00:10 SINUS RHYTHM NOW PRESENT Electronically Signed On 10-21-2023 16:56:58 CUSTOMS AND BORDER PROTECTION INSPECTOR by Joshua Rg D.O.
[2023-10-21 17:08] LABS: Glucose Point of Care 137 mg/dl (65-105)
[2023-10-21] MEDS: BUMETANIDE INJ 1 MG/4 ML VIAL 1.5 MG IV PUSH (20:00)
[2023-10-21 20:03] VITALS: BP 131/60; PULSE 95; RESP 16; TEMP 36.4; O2SAT 99
[2023-10-21 20:16] LABS: Glucose Point of Care 181 mg/dl (65-105)
[2023-10-21] MEDS: INSULIN GLARGINE (*BKC) 100 UNITS/ML 15 UNITS SUB-Q (20:51)
[2023-10-22 05:15] VITALS: BP 124/57; PULSE 93; RESP 20; TEMP 36.7; O2SAT 97
[2023-10-22 05:41] LABS: Basophils Percent Auto 0.7 % (0.2-1.2); Eosinophils Absolute Auto 0.3 K/mm3 (0-0.3); Eosinophils Percent Auto 4.7 % (0-4.4); Hematocrit 27.2 % (37.0-47.0); Hemoglobin 9.2 g/dL (12.0-15.0); Immature Granulocyte Absolute 0.04 K/mm3 (0.00-0.031); Immature Granulocyte Percent A 0.7 % (0-0.5); Lymphocytes Absolute Auto 0.99 K/mm3 (0.9-3.2); Lymphocytes Percent Auto 17.2 % (18.3-44.2); Mean Corpuscular HGB Conc 33.8 g/dl (32-36); Mean Corpuscular Hemoglobin 34.1 pg (26-34); Mean Corpuscular Volume 100.7 fl (80-100); Mean Platelet Volume 9.6 fl (7.4-10.4); Monocytes Absolute Auto 0.8 K/mm3 (0.1-0.6); Monocytes Percent Auto 13.6 % (2.6-8.5); Neutrophils Absolute Auto 3.6 K/mm3 (1.3-6.7); Neutrophils Percent Auto 63.1 % (45.5-73.1); Platelet Count Result 153 k/mm3 (150-375); Red Cell Distribution Width 12.6 % (11.5-14.5); White Blood Count 5.8 K/mm3 (4.5-10.0)
[2023-10-22 05:52] LABS: Alanine Aminotransferase 20 U/L (6-35); Albumin Level 3.1 g/dL (3.5-5.1); Alkaline Phosphatase 246 U/L (38-126); Anion Gap 7 mmol/L (8-16); Aspartate Amino Transferase 44 U/L (14-36); Bilirubin,Total 1.5 mg/dL (0.2-1.3); Blood Urea Nitrogen 10 mg/dL (7-17); Calcium 8.4 mg/dL (8.4-10.2); Carbon Dioxide 29 mmol/L (22-30); Chloride 91 mmol/L (98-107); Estimated CRCL calculation 44 ml/min; Estimated Glomerular Filt Rate 41; Glucose 132 mg/dL (65-110); Magnesium 1.6 mg/dL (1.6-2.3); Potassium 3.3 mmol/L (3.4-5.0); Sodium 127 mmol/L (137-145)
[2023-10-22 08:16] LABS: Glucose Point of Care 131 mg/dl (65-105)
[2023-10-22] MEDS: POTASSIUM CHLORIDE 20 MEQ ER TABLET 40 MEQ PO ×2 (08:33→17:44)
[2023-10-22] MEDS: FERROUS SULFATE 325 MG TABLET DR BY MOUTH (08:35)
[2023-10-22] MEDS: ASPIRIN 81 MG CHEWABLE TABLET 324 MG PO (08:35)
[2023-10-22] MEDS: PYRIDOXINE HCL 50 MG TABLET 100 MG PO (08:36)
[2023-10-22] MEDS: ATORVASTATIN 10 MG TABLET PO (08:36)
[2023-10-22] MEDS: PANTOPRAZOLE 40 MG TABLET PO (08:36)
[2023-10-22] MEDS: THIAMINE HCL 100 MG TABLET PO (08:36)
[2023-10-22] MEDS: SODIUM CHLORIDE 1 GM TABLET PO ×2 (08:36→18:01)
[2023-10-22] MEDS: CYANOCOBALAMIN 1,000 MCG TABLET 1000 MCG PO (08:37)
[2023-10-22] MEDS: SPIRONOLACTONE 25 MG TABLET PO (08:37)
[2023-10-22] MEDS: THERAPEUTIC MULTIVITAMINS/MINERALS TAB (*BKC) 1 TABLET PO (08:37)
[2023-10-22] MEDS: FOLIC ACID 1 MG TABLET PO (08:37)
[2023-10-22] MEDS: INSULIN ASPART (*BKC) 100 UNITS/ML SUB-Q ×3 (08:38→17:38)
[2023-10-22] MEDS: FUROSEMIDE INJ 40 MG/4 ML VIAL IV PUSH (08:48)
--- NOTE | 2023-10-22 10:11 | PM.IMPN ---
Progress Note: A&P Assessment and Plan (1) Anasarca: Code(s): R60.1 - Generalized edema Status: Acute Assessment and Plan: DDx: Acute on chronic CHF, anasarca secondary to cirrhosis, worsening renal insufficiency. Less likely malnutrition or nephrotic syndrome. BNP 4340, significantly elevated compared to prior. Echo ordered/updated and showed normal left ventricular systolic function with an estimated EF of 60 to 65% as well as abnormal diastolic dysfunction. Similar to previous on 10/19/21. Takes 20 of Lasix daily. Increase to 40 of Lasix x7 days. CXR showed cardiomegaly, pulmonary vascular congestion, consistent with CHF, mild lower lung infiltrate or atelectasis is suggested. No infectious symptoms or elevation in WBC, more likely atelectasis. Also reports she is still drinking 2 mixed drinks per day (states they are mixed weakly) but has previously reported that each contain a shot of vodka which equals out to about 1 L to 1.7 L of vodka a week.? Current total bilirubin is 1.9, AST is 48, ALT 23, alk-phos 280 which all appear to be around her baseline. TSH 1.6 on 07/17/2023. Suspect worsening edema is combination of continued ETOH use and volume overload secondary to CHF. Will continue Lasix at 40 mg IVP daily and add spironolactone 25 mg PO daily. continue to trend renal function and electrolytes. fluid restriction to 1.5 L/day. monitor I&Os and daily weights. (2) Bilateral lower extremity edema: Code(s): R60.0 - Localized edema Status: Acute Assessment and Plan: Reported chronic edema to bilateral lower extremities for a long time . per chart review was present at PCP visit in 2019, however not to this extent. Unclear when skin changes began. Given symmetric appearance, normal white count, no odor, or excessive warmth to the touch suspect the skin changes are related to longstanding venous stasis/insufficiency. Will consult wound for assistance. No antibiotics at this time. Diuresing. (3) Hypokalemia: Code(s): E87.6 - Hypokalemia Status: Acute Assessment and Plan: Intermittent since July. Was prescribed p.o. potassium supplement at home. Has recently increased Lasix to 40 p.o. (previously on 20) in the last week. K currently 3.2, previously 4.2 on 09/25. Will increase home K supplementation from 20 to 40 daily, will keep p.o. due to current fluid restriction. 10/22: Potassium replacement increased to 40 mEq BIDWM, 3.3 today (4) Chronic hyponatremia: Code(s): E87.1 - Hypo-osmolality and hyponatremia Status: Acute Assessment and Plan: Sodium currently 122. Has run from 122-129 in the past year. Suspect this is secondary to chronic alcohol use and renal insufficiency, has been present since 2019 at varying levels. Has had history of noncompliance with salt tabs. Will continue home salt tabs and utilize fluid restriction. Adding urine osmolality, urine sodium, urine creatinine, and osmolality. Consider consultation to Nephrology if no improvement. 10/22: Some improvement to 127 noted. Nephrology saw patient, awaiting recommendations (5) Renal insufficiency: Code(s): N28.9 - Disorder of kidney and ureter, unspecified Status: Acute Assessment and Plan: Currently follows with Nephrology for renal insufficiency and chronic hyponatremia with most recent visit on 09/27/2023. Baseline creatinine appears to be 1.3-1.7. Creatinine currently 1.2, unchanged from September 2023. Continue to monitor renal function, currently increasing diuresis. (6) Alcohol abuse: Code(s): F10.10 - Alcohol abuse, uncomplicated Status: Acute Assessment and Plan: Continues to drink daily, reports making two weak mix drinks everyday. Has previously reported 1 shot of vodka per drink. Reports this reduction is significantly less than what she used to drink. Current total bilirubin is 1.9, AST is 48, ALT 23, alk-phos 280 wh
[2023-10-22 11:09] LABS: Glucose Point of Care 146 mg/dl (65-105)
--- NOTE | 2023-10-22 11:20 | P.PNNP_ITS ---
Progress Note: A&P Assessment and Plan (1) Chronic hyponatremia: Code(s): E87.1 - Hypo-osmolality and hyponatremia Status: Chronic Assessment and Plan: * improving * chronic issue that dates back several years * has been as low as 117mmol/L in the past * during that time/hospitalization, she required 3% saline, normal saline, salt tabs, lasix, and fluid restriction for treatment * baseline sodium runs around 126 - 132mmol/L although seems closer to 127 - 130mmol/L in the last few years * previous extensive work-up (TSH, cortisol, SPE, UPE...etc) was essentially negative * it was felt her hyponatremia was related to her alcohol use and renal insufficiency along with underlying liver disease * her lower sdoium on admission are likely related to her fluid retention/volume overload issues... * continue salt tabs with IV diuretics for now * follow trend of sodium with current therapy/interventions (2) Chronic kidney disease, stage 3: Code(s): N18.30 - Chronic kidney disease, stage 3 unspecified Status: Chronic Assessment and Plan: * baseline creatinien runs ~ 1.2 - 1.7mg/dl * this causes her to fluctuate between CKD stage 3A and stage 3B * presumably related to her CHF, previous HTN (not an issue now), DM, and vascular disease (3) Anasarca: Code(s): R60.1 - Generalized edema Status: Acute Assessment and Plan: * as evidence by clinical exam and imaging on admission * continue with IV diuresis * continue fluid restriction * follow I/Os and daily weights (4) Bilateral lower extremity edema: Code(s): R60.0 - Localized edema Status: Chronic Assessment and Plan: * chronic issue at baseline * thought to be due to chronic venous stasis/insufficiency * however, seems acutely worse probably due to #3 (5) Hypokalemia: Code(s): E87.6 - Hypokalemia Status: Acute Assessment and Plan: * suspect secondary to increased dosage of oral diuretic prior to admission * replete as needed with IV diuresis * spironolactone use should help as well * follow trend of K+ (6) Diabetes mellitus: Qualifiers: Diabetes mellitus type: type 2 Diabetes mellitus care home insulin use: with care home use Diabetes mellitus complication status: without complication Qualified Code(s): E11.9 - Type 2 diabetes mellitus without complications; 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 Subjective Date/time seen: 10/22/23 11:20 Interval history: Follow-up for acute on chronic hyponatremia and chronic kidney disease. Still with significant swelling/edema so IV lasix changed to bid dosing; sodium appears to be improving with current interventions as well; still with difficulty ambulating at this time; no other acute complaints voiced, Exam Narrative: General: WD/WN female in NAD Heart: normal S1 and S2; no rub Lungs: coarse and decreased at bases Abdomen: soft, nontender, positive bowel sounds Extremities: no cyanosis or clubbing; 2+ edema (up to mid abdomen) Skin: chronic venous stasis changes Objective Data Vital Signs Vital Signs: Vital Signs Temp Pulse Resp BP Pulse Ox 10/22/23 05:1
--- NOTE | 2023-10-22 11:20 | PM.PNNEP ---
Progress Note: A&P Assessment and Plan (1) Chronic hyponatremia: Code(s): E87.1 - Hypo-osmolality and hyponatremia Status: Chronic Assessment and Plan: improving chronic issue that dates back several years has been as low as 117mmol/L in the past during that time/hospitalization, she required 3% saline, normal saline, salt tabs, lasix, and fluid restriction for treatment baseline sodium runs around 126 - 132mmol/L although seems closer to 127 - 130mmol/L in the last few years previous extensive work-up (TSH, cortisol, SPE, UPE...etc) was essentially negative it was felt her hyponatremia was related to her alcohol use and renal insufficiency along with underlying liver disease her lower sdoium on admission are likely related to her fluid retention/volume overload issues... continue salt tabs with IV diuretics for now follow trend of sodium with current therapy/interventions (2) Chronic kidney disease, stage 3: Code(s): N18.30 - Chronic kidney disease, stage 3 unspecified Status: Chronic Assessment and Plan: baseline creatinien runs ~ 1.2 - 1.7mg/dl this causes her to fluctuate between CKD stage 3A and stage 3B presumably related to her CHF, previous HTN (not an issue now), DM, and vascular disease (3) Anasarca: Code(s): R60.1 - Generalized edema Status: Acute Assessment and Plan: as evidence by clinical exam and imaging on admission continue with IV diuresis continue fluid restriction follow I/Os and daily weights (4) Bilateral lower extremity edema: Code(s): R60.0 - Localized edema Status: Chronic Assessment and Plan: chronic issue at baseline thought to be due to chronic venous stasis/insufficiency however, seems acutely worse probably due to #3 (5) Hypokalemia: Code(s): E87.6 - Hypokalemia Status: Acute Assessment and Plan: suspect secondary to increased dosage of oral diuretic prior to admission replete as needed with IV diuresis spironolactone use should help as well follow trend of K+ (6) Diabetes mellitus: Qualifiers: Diabetes mellitus type: type 2 Diabetes mellitus 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 Subjective Date/time seen: 10/22/23 11:20 Interval history: Follow-up for acute on chronic hyponatremia and chronic kidney disease. Still with significant swelling/edema so IV lasix changed to bid dosing; sodium appears to be improving with current interventions as well; still with difficulty ambulating at this time; no other acute complaints voiced, Exam Narrative: General: WD/WN female in NAD Heart: normal S1 and S2; no rub Lungs: coarse and decreased at bases Abdomen: soft, nontender, positive bowel sounds Extremities: no cyanosis or clubbing; 2+ edema (up to mid abdomen) Skin: chronic venous stasis changes Objective Data Vital Signs Vital Signs: Vital Signs Temp Pulse Resp BP Pulse Ox 10/22/23 05:15 98.1 F 93 20 124/57 L 97 10/21/23 20:03 97.6 F 95 16 131/60 99 Intake/Output Intake/Output: Intake & Output 10/19/23 10/20/23 10/21/23 10/22/23 23:59 23:59 23:59 23:59 Intake Total 480 560 300 Output Total 300 1000 1050 Balance 180 -440 -750 Meds/Results Medications: Active Medications Generic Name Dose Route Start Last Admin Trade Name Freq PRN Reason Stop Dose Admin Acetaminophen 650 mg 10/20/23 14:01 Acetaminophen 325 Mg Tablet PO Q4H PRN Mild Pain (1-3) or Fever Hydrocodone Bitart/Acetaminophen 1 tab
--- NOTE | 2023-10-22 13:20 | PM.CNCAR ---
Assessment and Plan Assessment and plan (1) Bilateral lower extremity edema: Code(s): R60.0 - Localized edema Status: Acute Assessment and Plan: 68-year-old female with CHFpEF, left carotid stenosis (50-69%), diabetes mellitus on insulin, CKD, chronic macrocytic anemia, dyslipidemia, osteoporosis, DJD. Patient with progressively worsening bilateral lower extremity edema which appears to be multifactorial from CHF with preserved ejection fraction, hypoalbuminemia, dependent edema. Patient reports worsening lower extremity swelling after being on wheelchair lately. -diuresis with furosemide with close monitoring of electrolytes and renal function. -keep legs elevated, may use Jt wraps. -local wound care. Patient is at risk of infection lower extremities. -comprehensive venous duplex bilaterally to check for any significant venous insufficiency and DVT. (2) Pericardial effusion: Code(s): I31.39 - Other pericardial effusion (noninflammatory) Status: Acute Assessment and Plan: Patient has [id number] pericardial effusion, no tamponade. Pericardial effusion in the setting of CKD, hypoalbuminemia. Avoid aggressive diuresis. May repeat echocardiogram in next couple of weeks as an outpatient to check for any progression of pericardial effusion. (3) Chronic diastolic CHF (congestive heart failure): Code(s): I50.32 - Chronic diastolic (congestive) heart failure Status: Acute Assessment and Plan: Diuresis with furosemide. Add SGLT2 inhibitor for diastolic heart failure. Optimal blood pressure control. (4) Renal insufficiency: Code(s): N28.9 - Disorder of kidney and ureter, unspecified Status: Acute Assessment and Plan: Management as per Nephrology. (5) Carotid stenosis: Code(s): I65.29 - Occlusion and stenosis of unspecified carotid artery Status: Acute Assessment and Plan: Aspirin, statin. Outpatient periodic surveillance carotid duplex. History of Present Illness History of Present Illness Consult date/time: 10/22/23 13:20 Requesting physician: Reuben Hinojosa APRN Consult reason: Other ( pericardial effusion) Reason For Visit: Anasarca Narrative: Date of consult: 10/22/2023 Reason for consult: 68-year-old female with CHFpEF, left carotid stenosis (50-69%), diabetes mellitus on insulin, CKD, chronic macrocytic anemia, dyslipidemia, osteoporosis, DJD. Patient presented to [facility] Emergency Room on 10/20/2023 with worsening lower extremity swelling. Patient gives a longstanding history of bilateral lower extremity swelling which was previously extending to the knees associated with skin changes. However, for last few weeks, she has been experiencing swelling about the knee. Patient has limited mobility due to chronic back pain. She states that she follows up at pain management clinic. She attributes her back pain to degenerate arthritis. Denies chest pain or shortness of breath for elevated. She has occasional dizziness without syncope. EKG on this admission on my personal interpretation showed sinus rhythm with low voltage. Echocardiogram during this hospitalization reportedly showed normal LV systolic function, diastolic dysfunction, moderate biatrial enlargement, mild AI, mild to moderate circumferential pericardial effusion. NT proBNP elevated at 4340. Serum protein and albumin is low. UA shows proteinuria in addition to other findings. MPI from 03/09/2022 was negative for ischemia with normal LVEF. Review of Systems Review of Systems: General: Negative for fever, chills, fatigue Psychological: Negative for anxiety, depression Ophthalmic: negative for loss of vision ENT: Negative for epistaxis, headaches Allergy and immunology: Negative for hives, nasal congestion Hematologic and lymphatic: Negative for overt bleeding problems Endocrine: Negative for hot flashes, palpitations Respirator
[2023-10-22 14:00] VITALS: BP 128/55; PULSE 101; RESP 18; TEMP 36.3; O2SAT 99
[2023-10-22 17:17] LABS: Glucose Point of Care 139 mg/dl (65-105)
[2023-10-22] MEDS: BUMETANIDE INJ 1 MG/4 ML VIAL IV PUSH (17:38)
[2023-10-22] MEDS: EMPAGLIFLOZIN 10 MG TABLET PO (17:48)
[2023-10-22] MEDS: TOLNAFTATE 1% POWDER 45 GM BTL 1 APPLIC TOPICAL ×2 (17:49→20:03)
[2023-10-22] MEDS: EUCERIN CREAM 120 GM JAR 1 APPLIC TOPICAL ×2 (17:49→20:03)
[2023-10-22] MEDS: MAGNESIUM OXIDE 400 MG TABLET PO (18:03)
[2023-10-22 20:24] VITALS: BP 143/74; PULSE 103; RESP 18; TEMP 36.7; O2SAT 99
[2023-10-22 20:34] LABS: Glucose Point of Care 151 mg/dl (65-105)
[2023-10-22] MEDS: INSULIN GLARGINE (*BKC) 100 UNITS/ML 15 UNITS SUB-Q (22:14)
[2023-10-23] MEDS: HYDROcodone/acetaminophen (*CRX) 5-325 MG TABLET 1 TAB PO ×2 (00:25→23:02)
[2023-10-23 06:00] VITALS: BP 128/64; PULSE 91; RESP 18; TEMP 36.4; O2SAT 100
[2023-10-23 06:14] LABS: Basophils Absolute Auto 0.1 K/mm3 (0.0-0.1); Basophils Percent Auto 0.8 % (0.2-1.2); Eosinophils Absolute Auto 0.4 K/mm3 (0-0.3); Eosinophils Percent Auto 6.2 % (0-4.4); Hematocrit 28.9 % (37.0-47.0); Hemoglobin 9.5 g/dL (12.0-15.0); Immature Granulocyte Absolute 0.05 K/mm3 (0.00-0.031); Immature Granulocyte Percent A 0.8 % (0-0.5); Lymphocytes Absolute Auto 0.99 K/mm3 (0.9-3.2); Lymphocytes Percent Auto 15.7 % (18.3-44.2); Mean Corpuscular HGB Conc 32.9 g/dl (32-36); Mean Corpuscular Hemoglobin 34.2 pg (26-34); Mean Platelet Volume 9.3 fl (7.4-10.4); Monocytes Absolute Auto 0.9 K/mm3 (0.1-0.6); Monocytes Percent Auto 13.8 % (2.6-8.5); Neutrophils Percent Auto 62.7 % (45.5-73.1); Platelet Count Result 165 k/mm3 (150-375); Red Blood Count 2.78 M/mm3 (4.2-5.4); Red Cell Distribution Width 12.6 % (11.5-14.5); White Blood Count 6.3 K/mm3 (4.5-10.0)
[2023-10-23 06:39] LABS: Alanine Aminotransferase 21 U/L (6-35); Alkaline Phosphatase 246 U/L (38-126); Anion Gap 5 mmol/L (8-16); Aspartate Amino Transferase 48 U/L (14-36); Bilirubin,Total 1.4 mg/dL (0.2-1.3); Blood Urea Nitrogen 9 mg/dL (7-17); Calcium 8.6 mg/dL (8.4-10.2); Carbon Dioxide 33 mmol/L (22-30); Chloride 94 mmol/L (98-107); Estimated CRCL calculation 46 ml/min; Estimated Glomerular Filt Rate 45; Glucose 90 mg/dL (65-110); Magnesium 1.5 mg/dL (1.6-2.3); Potassium 4.4 mmol/L (3.4-5.0); Sodium 132 mmol/L (137-145)
[2023-10-23] MEDS: MAGNESIUM SULF 2 GM/WATER 50ML 2 GM/50 ML BAG IVPB (07:52)
[2023-10-23 08:06] LABS: Glucose Point of Care 76 mg/dl (65-105)
[2023-10-23] MEDS: POTASSIUM CHLORIDE 20 MEQ ER TABLET 40 MEQ PO (09:34)
[2023-10-23] MEDS: PANTOPRAZOLE 40 MG TABLET PO (09:34)
[2023-10-23] MEDS: EMPAGLIFLOZIN 10 MG TABLET PO (09:34)
[2023-10-23] MEDS: ASPIRIN 81 MG CHEWABLE TABLET 324 MG PO (09:34)
[2023-10-23] MEDS: THERAPEUTIC MULTIVITAMINS/MINERALS TAB (*BKC) 1 TABLET PO (09:34)
[2023-10-23] MEDS: MAGNESIUM OXIDE 400 MG TABLET PO (09:34)
[2023-10-23] MEDS: CYANOCOBALAMIN 1,000 MCG TABLET 1000 MCG PO (09:35)
[2023-10-23] MEDS: THIAMINE HCL 100 MG TABLET PO (09:35)
[2023-10-23] MEDS: FERROUS SULFATE 325 MG TABLET DR BY MOUTH (09:35)
[2023-10-23] MEDS: FOLIC ACID 1 MG TABLET PO (09:35)
[2023-10-23] MEDS: PYRIDOXINE HCL 50 MG TABLET 100 MG PO (09:35)
[2023-10-23] MEDS: ATORVASTATIN 10 MG TABLET PO (09:35)
[2023-10-23] MEDS: SPIRONOLACTONE 25 MG TABLET PO (09:35)
[2023-10-23] MEDS: EUCERIN CREAM 120 GM JAR 1 APPLIC TOPICAL ×2 (09:39→22:47)
[2023-10-23] MEDS: SODIUM CHLORIDE 1 GM TABLET PO ×2 (09:39→17:55)
[2023-10-23] MEDS: calcitrioL 0.25 MCG CAPSULE PO (09:44)
[2023-10-23] MEDS: TOLNAFTATE 1% POWDER 45 GM BTL 1 APPLIC TOPICAL ×2 (09:49→22:47)
[2023-10-23] MEDS: BUMETANIDE INJ 1 MG/4 ML VIAL IV PUSH ×2 (09:49→17:55)
--- NOTE | 2023-10-23 09:53 | PM.PNCARD ---
Progress Note: A&P Assessment and Plan (1) Bilateral lower extremity edema: Code(s): R60.0 - Localized edema Status: Acute Assessment and Plan: 68-year-old female with CHFpEF, left carotid stenosis (50-69%), diabetes mellitus on insulin, CKD, chronic macrocytic anemia, dyslipidemia, osteoporosis, DJD. Patient with progressively worsening bilateral lower extremity edema which appears to be multifactorial from CHF with preserved ejection fraction, hypoalbuminemia, dependent edema. Patient reports worsening lower extremity swelling after being on wheelchair lately. -diuresis with furosemide with close monitoring of electrolytes and renal function. - fluid restriction - daily weights - strict intake and output -keep legs elevated, may use Jt wraps. -local wound care. Patient is at risk of infection lower extremities. -comprehensive venous duplex bilaterally performed with no evidence of DVT (2) Pericardial effusion: Code(s): I31.39 - Other pericardial effusion (noninflammatory) Status: Acute Assessment and Plan: Patient has [id number] pericardial effusion, no tamponade. Pericardial effusion in the setting of CKD, hypoalbuminemia. Avoid aggressive diuresis. May repeat echocardiogram in next couple of weeks as an outpatient to check for any progression of pericardial effusion. (3) Chronic diastolic CHF (congestive heart failure): Code(s): I50.32 - Chronic diastolic (congestive) heart failure Status: Acute Assessment and Plan: Diuresis with furosemide. Add SGLT2 inhibitor for diastolic heart failure. Continue spironolactone. Optimal blood pressure control. (4) Renal insufficiency: Code(s): N28.9 - Disorder of kidney and ureter, unspecified Status: Acute Assessment and Plan: Management as per Nephrology. (5) Carotid stenosis: Code(s): I65.29 - Occlusion and stenosis of unspecified carotid artery Status: Acute Assessment and Plan: Aspirin, statin. Outpatient periodic surveillance carotid duplex. Subjective Date/time seen: 10/23/23 09:53 Interval history: Cardiology follow up for CHF Feeling better today. She still has significant bilateral lower extremity edema extending to her thighs which is improving. She denies any shortness of breath or orthopnea. Review of Systems Review of Systems: All systems reviewed & are unremarkable except as noted in HPI and below Exam Const: General: comfortable, no acute distress, alert and awake Orientation/consciousness: patient oriented x3 HENMT: Head: normal to inspection Eyes: General: appearance normal, both eyes and all related structures Pupils: Equal, round and reactive pupils present Neck: Neck: normal visual inspection, supple and no JVD Carotids: normal carotid upstroke Resp: Effort & Inspection: normal respiratory effort Auscultation: clear to auscultation bilaterally Cardio: Rate: regular rate Rhythm: regular rhythm Heart sounds: S1 normal heart sound present, S2 normal heart sound present and no murmurs GI: Auscultation: normal bowel sounds Skin: General skin exam: normal color Neuro: General: patient oriented x3 Cranial nerves: Yes Equal, round and reactive pupils present Extrem: General: abnormal to inspection Other: 2+ bilateral pitting lower extremity edema extending to the thighs. She also has hyper pigmentation of chronic skin changes Psych: Appearance: grossly normal Mental Status: mental status grossly normal Objective Data Vital Signs Vital Signs: Vital Signs - 24 hr 10/22/23 14:00 10/22/23 20:00 10/22/23 20:24 Temperature 36.3 C L 36.7 C Pulse Rate 101 H 103 H Respiratory Rate 18 18 Blood Pressure 128/55 L 143/74 H Pulse Oximetry 99 99 Oxygen Delivery Room Air 10/23/23 06:00 Temperature 36.4 C Pulse Rate 91 Respiratory Rate 18 Blood Pressure 128/64 Pulse Oximetry 100 Oxygen Delivery Intake/
--- NOTE | 2023-10-23 10:40 | P.PNNP_ITS ---
Progress Note: A&P Assessment and Plan (1) Chronic hyponatremia: Code(s): E87.1 - Hypo-osmolality and hyponatremia Status: Chronic Assessment and Plan: * improving * better than baseline at this time * chronic issue that dates back several years * has been as low as 117mmol/L in the past * during that time/hospitalization, she required 3% saline, normal saline, salt tabs, lasix, and fluid restriction for treatment * baseline sodium runs around 127 - 130mmol/L in the last few years * previous extensive work-up (TSH, cortisol, SPE, UPE...etc) was essentially negative * it was felt her hyponatremia was related to her alcohol use and renal insufficiency along with underlying liver disease * her lower sdoium on admission are likely related to her fluid retention/volume overload issues... * continue salt tabs with IV diuretics * follow trend of sodium with current therapy/interventions (2) Chronic kidney disease, stage 3: Code(s): N18.30 - Chronic kidney disease, stage 3 unspecified Status: Chronic Assessment and Plan: * baseline creatinien runs ~ 1.2 - 1.7mg/dl * this causes her to fluctuate between CKD stage 3A and stage 3B * presumably related to her CHF, previous HTN (not an issue now), DM, and vascular disease (3) Anasarca: Code(s): R60.1 - Generalized edema Status: Acute Assessment and Plan: * as evidence by clinical exam and imaging on admission * continue with IV diuresis * continue fluid restriction * follow I/Os and daily weights (4) Bilateral lower extremity edema: Code(s): R60.0 - Localized edema Status: Chronic Assessment and Plan: * chronic issue at baseline * thought to be due to chronic venous stasis/insufficiency * however, seems acutely worse probably due to #3 (5) Hypokalemia: Code(s): E87.6 - Hypokalemia Status: Acute Assessment and Plan: * doing better * suspect secondary to increased dosage of oral diuretic prior to admission * replete as needed with IV diuresis * spironolactone use should help as well * follow trend of K+ (6) Diabetes mellitus: Qualifiers: Diabetes mellitus type: type 2 Diabetes mellitus [facility] insulin use: with lobsterman use Diabetes mellitus complication status: without complication Qualified Code(s): E11.9 - Type 2 diabetes mellitus without complications; Z79.4 - ocean transportation intermediary (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 Subjective Date/time seen: 10/23/23 10:40 Interval history: Follow-up for acute on chronic hyponatremia and chronic kidney disease. Swelling and edema see to be slowly improving at this time with diuretic therapy; sodium also getting better with current therapy/interventions; PT/OT ordered to help with her issues with mobillity; no apparent distress noted. Exam Narrative: General: WD/WN female in NAD Heart: normal S1 and S2; no rub Lungs: decreased at bases Abdomen: soft, nontender, positive bowel sounds Extremities: no cyanosis or clubbing; 1 - 2+ edema (up to mid abdomen) Skin: chronic venous stasis changes apparent Objective Data Vital Signs Vital Signs: Vital Signs Temp Pulse Resp BP Pulse Ox O2 Del
--- NOTE | 2023-10-23 10:40 | PM.PNNEP ---
Progress Note: A&P Assessment and Plan (1) Chronic hyponatremia: Code(s): E87.1 - Hypo-osmolality and hyponatremia Status: Chronic Assessment and Plan: improving better than baseline at this time chronic issue that dates back several years has been as low as 117mmol/L in the past during that time/hospitalization, she required 3% saline, normal saline, salt tabs, lasix, and fluid restriction for treatment baseline sodium runs around 127 - 130mmol/L in the last few years previous extensive work-up (TSH, cortisol, SPE, UPE...etc) was essentially negative it was felt her hyponatremia was related to her alcohol use and renal insufficiency along with underlying liver disease her lower sdoium on admission are likely related to her fluid retention/volume overload issues... continue salt tabs with IV diuretics follow trend of sodium with current therapy/interventions (2) Chronic kidney disease, stage 3: Code(s): N18.30 - Chronic kidney disease, stage 3 unspecified Status: Chronic Assessment and Plan: baseline creatinien runs ~ 1.2 - 1.7mg/dl this causes her to fluctuate between CKD stage 3A and stage 3B presumably related to her CHF, previous HTN (not an issue now), DM, and vascular disease (3) Anasarca: Code(s): R60.1 - Generalized edema Status: Acute Assessment and Plan: as evidence by clinical exam and imaging on admission continue with IV diuresis continue fluid restriction follow I/Os and daily weights (4) Bilateral lower extremity edema: Code(s): R60.0 - Localized edema Status: Chronic Assessment and Plan: chronic issue at baseline thought to be due to chronic venous stasis/insufficiency however, seems acutely worse probably due to #3 (5) Hypokalemia: Code(s): E87.6 - Hypokalemia Status: Acute Assessment and Plan: doing better suspect secondary to increased dosage of oral diuretic prior to admission replete as needed with IV diuresis spironolactone use should help as well follow trend of K+ (6) Diabetes mellitus: Qualifiers: Diabetes mellitus type: type 2 Diabetes mellitus [facility] insulin use: with [facility] use Diabetes mellitus complication status: without complication Qualified Code(s): E11.9 - Type 2 diabetes mellitus without complications; Z79.4 - exterminator (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 Subjective Date/time seen: 10/23/23 10:40 Interval history: Follow-up for acute on chronic hyponatremia and chronic kidney disease. Swelling and edema see to be slowly improving at this time with diuretic therapy; sodium also getting better with current therapy/interventions; PT/OT ordered to help with her issues with mobillity; no apparent distress noted. Exam Narrative: General: WD/WN female in NAD Heart: normal S1 and S2; no rub Lungs: decreased at bases Abdomen: soft, nontender, positive bowel sounds Extremities: no cyanosis or clubbing; 1 - 2+ edema (up to mid abdomen) Skin: chronic venous stasis changes apparent Objective Data Vital Signs Vital Signs: Vital Signs Temp Pulse Resp BP Pulse Ox O2 Del Method 10/23/23 07:45 Room Air 10/23/23 06:00 97.6 F 91 18 128/64 100 10/22/23 20:24 98.0 F 103 H 18 143/74 H 99 10/22/23 20:00 Room Air 10/22/23 14:00 97.4 F L 101 H 18 128/55 L 99 Intake/Output Intake/Output: Intake & Output 10/20/23 10/21/23 10/22/23 10/23/23 23:59 23:59 23:59 23:59 Intake Total 480 560 640 410 Output Total 300 1000 3050 600 Balance 180 -440 -2410 -190 Meds/Results Medications: Active Medications Generic Name Dose Route Start Last Admin Trade Name Freq PRN Reason Stop Dose Admin
[2023-10-23 11:36] LABS: Glucose Point of Care 113 mg/dl (65-105)
--- NOTE | 2023-10-23 11:43 | PM.IMPN ---
Progress Note: A&P Assessment and Plan (1) Anasarca: Code(s): R60.1 - Generalized edema Status: Acute Assessment and Plan: DDx: Acute on chronic CHF, anasarca secondary to cirrhosis, worsening renal insufficiency. Less likely malnutrition or nephrotic syndrome. BNP 4340, significantly elevated compared to prior. Echo ordered/updated and showed normal left ventricular systolic function with an estimated EF of 60 to 65% as well as abnormal diastolic dysfunction. Similar to previous on 10/19/21. Takes 20 of Lasix daily. Increase to 40 of Lasix x7 days. CXR showed cardiomegaly, pulmonary vascular congestion, consistent with CHF, mild lower lung infiltrate or atelectasis is suggested. No infectious symptoms or elevation in WBC, more likely atelectasis. Also reports she is still drinking 2 mixed drinks per day (states they are mixed weakly) but has previously reported that each contain a shot of vodka which equals out to about 1 L to 1.7 L of vodka a week.? Current total bilirubin is 1.9, AST is 48, ALT 23, alk-phos 280 which all appear to be around her baseline. TSH 1.6 on 07/17/2023. Suspect worsening edema is combination of continued ETOH use and volume overload secondary to CHF. Will continue Lasix at 40 mg IVP daily and add spironolactone 25 mg PO daily. continue to trend renal function and electrolytes. fluid restriction to 1.5 L/day. monitor I&Os and daily weights. 10/23: FR diet to 2000 mL today after consultation with Nephrology (2) Bilateral lower extremity edema: Code(s): R60.0 - Localized edema Status: Acute Assessment and Plan: Reported chronic edema to bilateral lower extremities for a long time . per chart review was present at PCP visit in 2019, however not to this extent. Unclear when skin changes began. Given symmetric appearance, normal white count, no odor, or excessive warmth to the touch suspect the skin changes are related to longstanding venous stasis/insufficiency. Will consult wound for assistance. No antibiotics at this time. Diuresing. (3) Hypokalemia: Code(s): E87.6 - Hypokalemia Status: Acute Assessment and Plan: Intermittent since July. Was prescribed p.o. potassium supplement at home. Has recently increased Lasix to 40 p.o. (previously on 20) in the last week. K currently 3.2, previously 4.2 on 09/25. Will increase home K supplementation from 20 to 40 daily, will keep p.o. due to current fluid restriction. 10/22: Potassium replacement increased to 40 mEq BIDWM, 3.3 today 10/23: Potassium 4.4 (4) Chronic hyponatremia: Code(s): E87.1 - Hypo-osmolality and hyponatremia Status: Acute Assessment and Plan: Sodium currently 122. Has run from 122-129 in the past year. Suspect this is secondary to chronic alcohol use and renal insufficiency, has been present since 2019 at varying levels. Has had history of noncompliance with salt tabs. Will continue home salt tabs and utilize fluid restriction. Adding urine osmolality, urine sodium, urine creatinine, and osmolality. Consider consultation to Nephrology if no improvement. 10/22: Some improvement to 127 noted. Nephrology saw patient, awaiting recommendations 10/23: Sodium 132, increase fluid restriction to 2 L after consultation with Nephrology (5) Renal insufficiency: Code(s): N28.9 - Disorder of kidney and ureter, unspecified Status: Acute Assessment and Plan: Currently follows with Nephrology for renal insufficiency and chronic hyponatremia with most recent visit on 09/27/2023. Baseline creatinine appears to be 1.3-1.7. Creatinine currently 1.2, unchanged from September 2023. Continue to monitor renal function, currently increasing diuresis. (6) Alcohol abuse: Code(s): F10.10 - Alcohol abuse, uncomplicated Status: Acute Assessment and Plan: Continues to drink daily, reports making two weak mix drinks everyday. Has previously reporte
[2023-10-23 14:00] VITALS: BP 134/56; PULSE 101; RESP 16; TEMP 36.9; O2SAT 100
[2023-10-23] MEDS: INSULIN ASPART (*BKC) 100 UNITS/ML SUB-Q (17:56)
[2023-10-23 18:11] LABS: Glucose Point of Care 147 mg/dl (65-105)
[2023-10-23 19:30] VITALS: BP 137/64; PULSE 106; RESP 15; TEMP 36.8; O2SAT 97
[2023-10-23 20:32] LABS: Glucose Point of Care 113 mg/dl (65-105)
[2023-10-23 21:03] LABS: Osmolality, Urine 162 mOsm/kg (50-1200)
[2023-10-23] MEDS: TACROLIMUS 0.1% 30 GM OINTMENT 1 APPLIC TOPICAL (22:46)
[2023-10-23] MEDS: INSULIN GLARGINE (*BKC) 100 UNITS/ML 15 UNITS SUB-Q (22:46)
[2023-10-24 05:01] VITALS: BP 137/69; PULSE 100; RESP 16; TEMP 36.7; O2SAT 100
[2023-10-24] MEDS: ALENDRONATE SODIUM 70 MG TABLET PO (05:39)
[2023-10-24 06:08] LABS: Basophils Absolute Auto 0.1 K/mm3 (0.0-0.1); Basophils Percent Auto 0.8 % (0.2-1.2); Eosinophils Absolute Auto 0.5 K/mm3 (0-0.3); Eosinophils Percent Auto 8.2 % (0-4.4); Hematocrit 29.1 % (37.0-47.0); Hemoglobin 9.5 g/dL (12.0-15.0); Immature Granulocyte Absolute 0.06 K/mm3 (0.00-0.031); Immature Granulocyte Percent A 0.9 % (0-0.5); Lymphocytes Absolute Auto 1.01 K/mm3 (0.9-3.2); Lymphocytes Percent Auto 15.5 % (18.3-44.2); Mean Corpuscular HGB Conc 32.6 g/dl (32-36); Mean Corpuscular Hemoglobin 33.7 pg (26-34); Mean Corpuscular Volume 103.2 fl (80-100); Mean Platelet Volume 9.2 fl (7.4-10.4); Monocytes Absolute Auto 0.8 K/mm3 (0.1-0.6); Monocytes Percent Auto 11.8 % (2.6-8.5); Neutrophils Absolute Auto 4.1 K/mm3 (1.3-6.7); Neutrophils Percent Auto 62.8 % (45.5-73.1); Platelet Count Result 174 k/mm3 (150-375); Red Blood Count 2.82 M/mm3 (4.2-5.4); Red Cell Distribution Width 12.8 % (11.5-14.5); White Blood Count 6.5 K/mm3 (4.5-10.0)
[2023-10-24 06:16] LABS: Alanine Aminotransferase 20 U/L (6-35); Alkaline Phosphatase 221 U/L (38-126); Anion Gap 5 mmol/L (8-16); Aspartate Amino Transferase 47 U/L (14-36); Bilirubin,Total 1.4 mg/dL (0.2-1.3); Blood Urea Nitrogen 10 mg/dL (7-17); Calcium 8.4 mg/dL (8.4-10.2); Carbon Dioxide 33 mmol/L (22-30); Chloride 94 mmol/L (98-107); Estimated CRCL calculation 43 ml/min; Estimated Glomerular Filt Rate 41; Glucose 88 mg/dL (65-110); Magnesium 1.7 mg/dL (1.6-2.3); Potassium 3.8 mmol/L (3.4-5.0); Sodium 132 mmol/L (137-145)
[2023-10-24 08:00] VITALS: PULSE 100; RESP 16; O2SAT 100
[2023-10-24 08:33] LABS: Glucose Point of Care 79 mg/dl (65-105)
[2023-10-24] MEDS: INSULIN ASPART (*BKC) 100 UNITS/ML SUB-Q ×3 (09:19→16:59)
[2023-10-24] MEDS: PANTOPRAZOLE 40 MG TABLET PO (09:20)
[2023-10-24] MEDS: FOLIC ACID 1 MG TABLET PO (09:26)
[2023-10-24] MEDS: ATORVASTATIN 10 MG TABLET PO (09:27)
[2023-10-24] MEDS: CYANOCOBALAMIN 1,000 MCG TABLET 1000 MCG PO (09:27)
[2023-10-24] MEDS: PYRIDOXINE HCL 50 MG TABLET 100 MG PO (09:27)
[2023-10-24] MEDS: SPIRONOLACTONE 25 MG TABLET PO (09:27)
[2023-10-24] MEDS: ASPIRIN 81 MG CHEWABLE TABLET 324 MG PO (09:27)
[2023-10-24] MEDS: SODIUM CHLORIDE 1 GM TABLET PO ×2 (09:27→16:59)
[2023-10-24] MEDS: EMPAGLIFLOZIN 10 MG TABLET PO (09:27)
[2023-10-24] MEDS: POTASSIUM CHLORIDE 20 MEQ ER TABLET PO ×2 (09:27→16:59)
[2023-10-24] MEDS: MAGNESIUM OXIDE 400 MG TABLET PO (09:28)
[2023-10-24] MEDS: THIAMINE HCL 100 MG TABLET PO (09:28)
[2023-10-24] MEDS: THERAPEUTIC MULTIVITAMINS/MINERALS TAB (*BKC) 1 TABLET PO (09:28)
[2023-10-24] MEDS: FERROUS SULFATE 325 MG TABLET DR BY MOUTH (09:28)
[2023-10-24] MEDS: TACROLIMUS 0.1% 30 GM OINTMENT 1 APPLIC TOPICAL ×2 (09:29→20:28)
[2023-10-24] MEDS: EUCERIN CREAM 120 GM JAR 1 APPLIC TOPICAL ×2 (09:29→20:33)
[2023-10-24] MEDS: TOLNAFTATE 1% POWDER 45 GM BTL 1 APPLIC TOPICAL ×2 (09:29→20:28)
--- NOTE | 2023-10-24 09:30 | PM.IMPN ---
Progress Note: A&P Assessment and Plan (1) Anasarca: Code(s): R60.1 - Generalized edema Status: Acute Assessment and Plan: DDx: Acute on chronic CHF, anasarca secondary to cirrhosis, worsening renal insufficiency. Less likely malnutrition or nephrotic syndrome. BNP 4340, significantly elevated compared to prior. Echo ordered/updated and showed normal left ventricular systolic function with an estimated EF of 60 to 65% as well as abnormal diastolic dysfunction. Similar to previous on 10/19/21. Takes 20 of Lasix daily. Increase to 40 of Lasix x7 days. CXR showed cardiomegaly, pulmonary vascular congestion, consistent with CHF, mild lower lung infiltrate or atelectasis is suggested. No infectious symptoms or elevation in WBC, more likely atelectasis. Also reports she is still drinking 2 mixed drinks per day (states they are mixed weakly) but has previously reported that each contain a shot of vodka which equals out to about 1 L to 1.7 L of vodka a week.? Current total bilirubin is 1.9, AST is 48, ALT 23, alk-phos 280 which all appear to be around her baseline. TSH 1.6 on 07/17/2023. Suspect worsening edema is combination of continued ETOH use and volume overload secondary to CHF. Will continue Lasix at 40 mg IVP daily and add spironolactone 25 mg PO daily. continue to trend renal function and electrolytes. fluid restriction to 1.5 L/day. monitor I&Os and daily weights. 10/23: FR diet to 2000 mL today after consultation with Nephrology (2) Bilateral lower extremity edema: Code(s): R60.0 - Localized edema Status: Acute Assessment and Plan: Reported chronic edema to bilateral lower extremities for a long time . per chart review was present at PCP visit in 2019, however not to this extent. Unclear when skin changes began. Given symmetric appearance, normal white count, no odor, or excessive warmth to the touch suspect the skin changes are related to longstanding venous stasis/insufficiency. Will consult wound for assistance. No antibiotics at this time. Diuresing. (3) Hypokalemia: Code(s): E87.6 - Hypokalemia Status: Acute Assessment and Plan: Intermittent since July. Was prescribed p.o. potassium supplement at home. Has recently increased Lasix to 40 p.o. (previously on 20) in the last week. K currently 3.2, previously 4.2 on 09/25. Will increase home K supplementation from 20 to 40 daily, will keep p.o. due to current fluid restriction. 10/22: Potassium replacement increased to 40 mEq BIDWM, 3.3 today 10/23: Potassium 4.4 10/24: Potassium 3.8, decreased to 20 mEq b.i.d. (4) Chronic hyponatremia: Code(s): E87.1 - Hypo-osmolality and hyponatremia Status: Acute Assessment and Plan: Sodium currently 122. Has run from 122-129 in the past year. Suspect this is secondary to chronic alcohol use and renal insufficiency, has been present since 2019 at varying levels. Has had history of noncompliance with salt tabs. Will continue home salt tabs and utilize fluid restriction. Adding urine osmolality, urine sodium, urine creatinine, and osmolality. Consider consultation to Nephrology if no improvement. 10/22: Some improvement to 127 noted. Nephrology saw patient, awaiting recommendations 10/23: Sodium 132, increase fluid restriction to 2 L after consultation with Nephrology 10/24: Sodium 132 (5) Renal insufficiency: Code(s): N28.9 - Disorder of kidney and ureter, unspecified Status: Acute Assessment and Plan: Currently follows with Nephrology for renal insufficiency and chronic hyponatremia with most recent visit on 09/27/2023. Baseline creatinine appears to be 1.3-1.7. Creatinine currently 1.2, unchanged from September 2023. Continue to monitor renal function, currently increasing diuresis. (6) Alcohol abuse: Code(s): F10.10 - Alcohol abuse, uncomplicated Status: Acute Assessment and Plan: Continues to drink daily,
[2023-10-24] MEDS: BUMETANIDE INJ 1 MG/4 ML VIAL IV PUSH ×2 (09:35→17:15)
--- NOTE | 2023-10-24 10:17 | P.PNNP_ITS ---
Progress Note: A&P Assessment and Plan (1) Chronic hyponatremia: Code(s): E87.1 - Hypo-osmolality and hyponatremia Status: Chronic Assessment and Plan: * improving * better than baseline at this time * chronic issue that dates back several years * has been as low as 117mmol/L in the past * during that time/hospitalization, she required 3% saline, normal saline, salt tabs, lasix, and fluid restriction for treatment * baseline sodium runs around 127 - 130mmol/L in the last few years * previous extensive work-up (TSH, cortisol, SPE, UPE...etc) was essentially negative * it was felt her hyponatremia was related to her alcohol use and renal insufficiency along with underlying liver disease * her lower sdoium on admission are likely related to her fluid retention/volume overload issues... * continue salt tabs with IV diuretics * follow trend of sodium with current therapy/interventions (2) Chronic kidney disease, stage 3: Code(s): N18.30 - Chronic kidney disease, stage 3 unspecified Status: Chronic Assessment and Plan: * baseline creatinien runs ~ 1.2 - 1.7mg/dl * this causes her to fluctuate between CKD stage 3A and stage 3B * presumably related to her CHF, previous HTN (not an issue now), DM, and vascular disease (3) Anasarca: Code(s): R60.1 - Generalized edema Status: Acute Assessment and Plan: * as evidence by clinical exam and imaging on admission * continue with IV diuresis * continue fluid restriction * follow I/Os and daily weights (4) Bilateral lower extremity edema: Code(s): R60.0 - Localized edema Status: Chronic Assessment and Plan: * chronic issue at baseline * thought to be due to chronic venous stasis/insufficiency * however, seems acutely worse probably due to #3 (5) Hypokalemia: Code(s): E87.6 - Hypokalemia Status: Acute Assessment and Plan: * doing better * suspect secondary to increased dosage of oral diuretic prior to admission * replete as needed with IV diuresis * spironolactone use should help as well * follow trend of K+ (6) Diabetes mellitus: Qualifiers: Diabetes mellitus type: type 2 Diabetes mellitus long-term insulin use: with watermelon inspector use Diabetes mellitus complication status: without complication Qualified Code(s): E11.9 - Type 2 diabetes mellitus without complications; 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 Subjective Date/time seen: 10/24/23 10:17 Interval history: Follow-up for acute on chronic hyponatremia and chronic kidney disease. Continues to make slow and steady progress -- swelling/edema as well sodium level imroving/stabilizing with current therapy/interventions, working with PT/OT with some better mobility; no other issues/events overnight or earlier this morning. Exam Narrative: General: WD/WN female in NAD Heart: normal S1 and S2; no rub Lungs: decreased at bases Abdomen: soft, nontender, positive bowel sounds Extremities: no cyanosis or clubbing; 1+ edema Skin: chronic venous stasis changes noted Objective Data Vital Signs Vital Signs: Vital Signs Temp Pulse Resp BP Pulse Ox O2 Del Method
--- NOTE | 2023-10-24 10:17 | PM.PNNEP ---
Progress Note: A&P Assessment and Plan (1) Chronic hyponatremia: Code(s): E87.1 - Hypo-osmolality and hyponatremia Status: Chronic Assessment and Plan: improving better than baseline at this time chronic issue that dates back several years has been as low as 117mmol/L in the past during that time/hospitalization, she required 3% saline, normal saline, salt tabs, lasix, and fluid restriction for treatment baseline sodium runs around 127 - 130mmol/L in the last few years previous extensive work-up (TSH, cortisol, SPE, UPE...etc) was essentially negative it was felt her hyponatremia was related to her alcohol use and renal insufficiency along with underlying liver disease her lower sdoium on admission are likely related to her fluid retention/volume overload issues... continue salt tabs with IV diuretics follow trend of sodium with current therapy/interventions (2) Chronic kidney disease, stage 3: Code(s): N18.30 - Chronic kidney disease, stage 3 unspecified Status: Chronic Assessment and Plan: baseline creatinien runs ~ 1.2 - 1.7mg/dl this causes her to fluctuate between CKD stage 3A and stage 3B presumably related to her CHF, previous HTN (not an issue now), DM, and vascular disease (3) Anasarca: Code(s): R60.1 - Generalized edema Status: Acute Assessment and Plan: as evidence by clinical exam and imaging on admission continue with IV diuresis continue fluid restriction follow I/Os and daily weights (4) Bilateral lower extremity edema: Code(s): R60.0 - Localized edema Status: Chronic Assessment and Plan: chronic issue at baseline thought to be due to chronic venous stasis/insufficiency however, seems acutely worse probably due to #3 (5) Hypokalemia: Code(s): E87.6 - Hypokalemia Status: Acute Assessment and Plan: doing better suspect secondary to increased dosage of oral diuretic prior to admission replete as needed with IV diuresis spironolactone use should help as well follow trend of K+ (6) Diabetes mellitus: Qualifiers: Diabetes mellitus type: type 2 Diabetes mellitus penitentiary insulin use: with penitentiary use Diabetes mellitus complication status: without complication Qualified Code(s): E11.9 - Type 2 diabetes mellitus without complications; 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 Subjective Date/time seen: 10/24/23 10:17 Interval history: Follow-up for acute on chronic hyponatremia and chronic kidney disease. Continues to make slow and steady progress -- swelling/edema as well sodium level imroving/stabilizing with current therapy/interventions, working with PT/OT with some better mobility; no other issues/events overnight or earlier this morning. Exam Narrative: General: WD/WN female in NAD Heart: normal S1 and S2; no rub Lungs: decreased at bases Abdomen: soft, nontender, positive bowel sounds Extremities: no cyanosis or clubbing; 1+ edema Skin: chronic venous stasis changes noted Objective Data Vital Signs Vital Signs: Vital Signs Temp Pulse Resp BP Pulse Ox O2 Del Method 10/24/23 08:00 100 16 100 Room Air 10/24/23 05:01 98.1 F 100 16 137/69 100 10/23/23 20:00 Room Air 10/23/23 19:30 98.3 F 106 H 15 137/64 97 10/23/23 14:00 98.5 F 101 H 16 134/56 L 100 Intake/Output Intake/Output: Intake & Output 10/21/23 10/22/23 10/23/23 10/24/23 23:59 23:59 23:59 23:59 Intake Total 560 640 530 440 Output Total 1000 3050 2600 Balance -994 -4594 -7501 440 Meds/Results Medications: Active Medications Generic Name Dose Route Start Last Admin Trade Name Freq PRN Reason Stop Dose Admin A
[2023-10-24 12:17] LABS: Glucose Point of Care 97 mg/dl (65-105)
[2023-10-24 14:00] VITALS: BP 132/80; PULSE 105; RESP 17; TEMP 36.4; O2SAT 100
[2023-10-24 17:01] LABS: Glucose Point of Care 112 mg/dl (65-105)
[2023-10-24 20:00] VITALS: PULSE 105; RESP 17; O2SAT 100
[2023-10-24] MEDS: INSULIN GLARGINE (*BKC) 100 UNITS/ML 15 UNITS SUB-Q (20:20)
[2023-10-24 20:42] LABS: Glucose Point of Care 111 mg/dl (65-105)
[2023-10-24 21:25] LABS: Glucose Point of Care 119 mg/dl (65-105)
[2023-10-24 21:36] VITALS: BP 135/65; PULSE 114; RESP 19; TEMP 36.1; O2SAT 97
[2023-10-24] MEDS: HYDROcodone/acetaminophen (*CRX) 5-325 MG TABLET 1 TAB PO (22:25)
[2023-10-25 05:54] LABS: Basophils Absolute Auto 0.1 K/mm3 (0.0-0.1); Basophils Percent Auto 0.9 % (0.2-1.2); Eosinophils Absolute Auto 0.5 K/mm3 (0-0.3); Eosinophils Percent Auto 7.7 % (0-4.4); Hematocrit 29.2 % (37.0-47.0); Hemoglobin 9.6 g/dL (12.0-15.0); Immature Granulocyte Absolute 0.05 K/mm3 (0.00-0.031); Immature Granulocyte Percent A 0.7 % (0-0.5); Lymphocytes Absolute Auto 1.13 K/mm3 (0.9-3.2); Lymphocytes Percent Auto 16.2 % (18.3-44.2); Mean Corpuscular HGB Conc 32.9 g/dl (32-36); Mean Corpuscular Hemoglobin 33.9 pg (26-34); Mean Corpuscular Volume 103.2 fl (80-100); Mean Platelet Volume 9.5 fl (7.4-10.4); Monocytes Absolute Auto 0.8 K/mm3 (0.1-0.6); Monocytes Percent Auto 11.9 % (2.6-8.5); Neutrophils Absolute Auto 4.4 K/mm3 (1.3-6.7); Neutrophils Percent Auto 62.6 % (45.5-73.1); Platelet Count Result 184 k/mm3 (150-375); Red Blood Count 2.83 M/mm3 (4.2-5.4); Red Cell Distribution Width 12.8 % (11.5-14.5)
[2023-10-25 06:00] VITALS: BP 135/64; PULSE 97; RESP 19; TEMP 36.5; O2SAT 99
[2023-10-25 06:09] LABS: Alanine Aminotransferase 21 U/L (6-35); Alkaline Phosphatase 236 U/L (38-126); Anion Gap 6 mmol/L (8-16); Aspartate Amino Transferase 51 U/L (14-36); Bilirubin,Total 1.5 mg/dL (0.2-1.3); Blood Urea Nitrogen 12 mg/dL (7-17); Calcium 8.4 mg/dL (8.4-10.2); Carbon Dioxide 31 mmol/L (22-30); Chloride 95 mmol/L (98-107); Estimated CRCL calculation 46 ml/min; Estimated Glomerular Filt Rate 45; Glucose 87 mg/dL (65-110); Magnesium 1.6 mg/dL (1.6-2.3); Potassium 3.9 mmol/L (3.4-5.0); Sodium 132 mmol/L (137-145)
[2023-10-25 08:00] VITALS: PULSE 97; RESP 19; O2SAT 99
[2023-10-25] MEDS: CYANOCOBALAMIN 1,000 MCG TABLET 1000 MCG PO (08:13)
[2023-10-25] MEDS: ASPIRIN 81 MG CHEWABLE TABLET 324 MG PO (08:13)
[2023-10-25] MEDS: POTASSIUM CHLORIDE 20 MEQ ER TABLET PO ×2 (08:13→17:13)
[2023-10-25] MEDS: SODIUM CHLORIDE 1 GM TABLET PO ×2 (08:13→17:13)
[2023-10-25] MEDS: PANTOPRAZOLE 40 MG TABLET PO (08:13)
[2023-10-25] MEDS: EMPAGLIFLOZIN 10 MG TABLET PO (08:13)
[2023-10-25] MEDS: FOLIC ACID 1 MG TABLET PO (08:13)
[2023-10-25] MEDS: MAGNESIUM OXIDE 400 MG TABLET PO (08:13)
[2023-10-25] MEDS: SPIRONOLACTONE 25 MG TABLET PO (08:13)
[2023-10-25] MEDS: THERAPEUTIC MULTIVITAMINS/MINERALS TAB (*BKC) 1 TABLET PO (08:13)
[2023-10-25] MEDS: FERROUS SULFATE 325 MG TABLET DR BY MOUTH (08:13)
[2023-10-25] MEDS: ATORVASTATIN 10 MG TABLET PO (08:13)
[2023-10-25] MEDS: THIAMINE HCL 100 MG TABLET PO (08:13)
[2023-10-25] MEDS: EUCERIN CREAM 120 GM JAR 1 APPLIC TOPICAL ×2 (08:14→21:05)
[2023-10-25] MEDS: TACROLIMUS 0.1% 30 GM OINTMENT 1 APPLIC TOPICAL ×2 (08:14→21:05)
[2023-10-25] MEDS: PYRIDOXINE HCL 50 MG TABLET 100 MG PO (08:18)
[2023-10-25] MEDS: TOLNAFTATE 1% POWDER 45 GM BTL 1 APPLIC TOPICAL ×2 (08:18→21:06)
[2023-10-25] MEDS: calcitrioL 0.25 MCG CAPSULE PO (08:18)
[2023-10-25] MEDS: BUMETANIDE INJ 1 MG/4 ML VIAL IV PUSH ×3 (08:22→18:23)
[2023-10-25 08:35] LABS: Glucose Point of Care 80 mg/dl (65-105)
[2023-10-25 12:32] LABS: Glucose Point of Care 124 mg/dl (65-105)
[2023-10-25] MEDS: INSULIN ASPART (*BKC) 100 UNITS/ML SUB-Q (13:09)
--- NOTE | 2023-10-25 13:44 | PM.IMPN ---
Progress Note: A&P Assessment and Plan (1) Anasarca: Code(s): R60.1 - Generalized edema Status: Acute Assessment and Plan: DDx: Acute on chronic CHF, anasarca secondary to cirrhosis, worsening renal insufficiency. Less likely malnutrition or nephrotic syndrome. BNP 4340, significantly elevated compared to prior. Echo ordered/updated and showed normal left ventricular systolic function with an estimated EF of 60 to 65% as well as abnormal diastolic dysfunction. Similar to previous on 10/19/21. Takes 20 of Lasix daily. Increase to 40 of Lasix x7 days. CXR showed cardiomegaly, pulmonary vascular congestion, consistent with CHF, mild lower lung infiltrate or atelectasis is suggested. No infectious symptoms or elevation in WBC, more likely atelectasis. Also reports she is still drinking 2 mixed drinks per day (states they are mixed weakly) but has previously reported that each contain a shot of vodka which equals out to about 1 L to 1.7 L of vodka a week.? Current total bilirubin is 1.9, AST is 48, ALT 23, alk-phos 280 which all appear to be around her baseline. TSH 1.6 on 07/17/2023. Suspect worsening edema is combination of continued ETOH use and volume overload secondary to CHF. Will continue Lasix at 40 mg IVP daily and add spironolactone 25 mg PO daily. continue to trend renal function and electrolytes. fluid restriction to 1.5 L/day. monitor I&Os and daily weights. 10/23: FR diet to 2000 mL today after consultation with Nephrology 10/25/23: Continue with diuresis Nephrology following Trend labs (2) Bilateral lower extremity edema: Code(s): R60.0 - Localized edema Status: Acute Assessment and Plan: Reported chronic edema to bilateral lower extremities for a long time . per chart review was present at PCP visit in 2019, however not to this extent. Unclear when skin changes began. Given symmetric appearance, normal white count, no odor, or excessive warmth to the touch suspect the skin changes are related to longstanding venous stasis/insufficiency. Will consult wound for assistance. No antibiotics at this time. Diuresing. 10/25/23: See above (3) Hypokalemia: Code(s): E87.6 - Hypokalemia Status: Acute Assessment and Plan: Intermittent since July. Was prescribed p.o. potassium supplement at home. Has recently increased Lasix to 40 p.o. (previously on 20) in the last week. K currently 3.2, previously 4.2 on 09/25. Will increase home K supplementation from 20 to 40 daily, will keep p.o. due to current fluid restriction. 10/22: Potassium replacement increased to 40 mEq BIDWM, 3.3 today 10/23: Potassium 4.4 10/24: Potassium 3.8, decreased to 20 mEq b.i.d. 10/25/23: Potassium today 3.9 Continue to trend labs (4) Chronic hyponatremia: Code(s): E87.1 - Hypo-osmolality and hyponatremia Status: Acute Assessment and Plan: Sodium currently 122. Has run from 122-129 in the past year. Suspect this is secondary to chronic alcohol use and renal insufficiency, has been present since 2019 at varying levels. Has had history of noncompliance with salt tabs. Will continue home salt tabs and utilize fluid restriction. Adding urine osmolality, urine sodium, urine creatinine, and osmolality. Consider consultation to Nephrology if no improvement. 10/22: Some improvement to 127 noted. Nephrology saw patient, awaiting recommendations 10/23: Sodium 132, increase fluid restriction to 2 L after consultation with Nephrology 10/24: Sodium 132 10/25/23: Sodium 132, chloride 95 Nephrology following (5) Renal insufficiency: Code(s): N28.9 - Disorder of kidney and ureter, unspecified Status: Acute Assessment and Plan: Currently follows with Nephrology for renal insufficiency and chronic hyponatremia with most recent visit on 09/27/2023. Baseline creatinine appears to be 1.3-1.7. Creatinine currently 1.2, unchanged from September 2023. Continue to
--- NOTE | 2023-10-25 13:46 | PM.PNNEP ---
Progress Note: A&P Assessment and Plan (1) Chronic hyponatremia: Code(s): E87.1 - Hypo-osmolality and hyponatremia Status: Chronic Assessment and Plan: improving better than baseline at this time chronic issue that dates back several years has been as low as 117mmol/L in the past during that time/hospitalization, she required 3% saline, normal saline, salt tabs, lasix, and fluid restriction for treatment baseline sodium runs around 127 - 130mmol/L in the last few years previous extensive work-up (TSH, cortisol, SPE, UPE...etc) was essentially negative it was felt her hyponatremia was related to her alcohol use and renal insufficiency along with underlying liver disease her lower sdoium on admission are likely related to her fluid retention/volume overload issues... continue salt tabs with IV diuretics - switch to oral diuretics? follow trend of sodium with current therapy/interventions (2) Chronic kidney disease, stage 3: Code(s): N18.30 - Chronic kidney disease, stage 3 unspecified Status: Chronic Assessment and Plan: baseline creatinien runs ~ 1.2 - 1.7mg/dl this causes her to fluctuate between CKD stage 3A and stage 3B presumably related to her CHF, previous HTN (not an issue now), DM, and vascular disease (3) Anasarca: Code(s): R60.1 - Generalized edema Status: Acute Assessment and Plan: as evidence by clinical exam and imaging on admission continue with IV diuresis - switch to oral diuretics continue fluid restriction follow I/Os and daily weights (4) Bilateral lower extremity edema: Code(s): R60.0 - Localized edema Status: Chronic Assessment and Plan: chronic issue at baseline thought to be due to chronic venous stasis/insufficiency however, seems acutely worse probably due to #3 (5) Hypokalemia: Code(s): E87.6 - Hypokalemia Status: Acute Assessment and Plan: doing better suspect secondary to increased dosage of oral diuretic prior to admission replete as needed with diuresis spironolactone use should help as well follow trend of K+ (6) Diabetes mellitus: Qualifiers: Diabetes mellitus type: type 2 Diabetes mellitus care home insulin use: with care home use Diabetes mellitus complication status: without complication Qualified Code(s): E11.9 - Type 2 diabetes mellitus without complications; 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 Subjective Date/time seen: 10/25/23 13:46 Interval history: Follow-up for acute on chronic hyponatremia and chronic kidney disease. Sodium, swelling/edema, and renal function all appear stable if not improving; no apparent distress noted at the time of my visit, working with PT/OT as tolerated; no other acute complaints. Exam Narrative: General: WD/WN female in NAD Heart: normal S1 and S2; no rub Lungs: decreased at bases Abdomen: soft, nontender, positive bowel sounds Extremities: no cyanosis or clubbing; trace edema Skin: chronic venous stasis changes - unchnged Objective Data Vital Signs Vital Signs: Vital Signs Temp Pulse Resp BP Pulse Ox O2 Del Method 10/25/23 08:00 97 19 99 Room Air 10/25/23 06:00 97.7 F 97 19 135/64 99 10/24/23 21:36 97.0 F L 114 H 19 135/65 97 10/24/23 20:00 105 H 17 100 Room Air Intake/Output Intake/Output: Intake & Output 10/22/23 10/23/23 10/24/23 10/25/23 23:59 23:59 23:59 23:59 Intake Total 296 616 1796 480 Output Total 3050 2600 600 Balance -2410 -2070 1124 -120 Meds/Results Medications: Active Medications Generic Name Dose Route Start Last Admin Trade Name Joséq PRN Reason Stop Dose Admin Acetaminophen 650 mg 10/20/23 14:
--- NOTE | 2023-10-25 13:46 | P.PNNP_ITS ---
Progress Note: A&P Assessment and Plan (1) Chronic hyponatremia: Code(s): E87.1 - Hypo-osmolality and hyponatremia Status: Chronic Assessment and Plan: * improving * better than baseline at this time * chronic issue that dates back several years * has been as low as 117mmol/L in the past * during that time/hospitalization, she required 3% saline, normal saline, salt tabs, lasix, and fluid restriction for treatment * baseline sodium runs around 127 - 130mmol/L in the last few years * previous extensive work-up (TSH, cortisol, SPE, UPE...etc) was essentially negative * it was felt her hyponatremia was related to her alcohol use and renal insufficiency along with underlying liver disease * her lower sdoium on admission are likely related to her fluid retention/volume overload issues... * continue salt tabs with IV diuretics - switch to oral diuretics? * follow trend of sodium with current therapy/interventions (2) Chronic kidney disease, stage 3: Code(s): N18.30 - Chronic kidney disease, stage 3 unspecified Status: Chronic Assessment and Plan: * baseline creatinien runs ~ 1.2 - 1.7mg/dl * this causes her to fluctuate between CKD stage 3A and stage 3B * presumably related to her CHF, previous HTN (not an issue now), DM, and vascular disease (3) Anasarca: Code(s): R60.1 - Generalized edema Status: Acute Assessment and Plan: * as evidence by clinical exam and imaging on admission * continue with IV diuresis - switch to oral diuretics * continue fluid restriction * follow I/Os and daily weights (4) Bilateral lower extremity edema: Code(s): R60.0 - Localized edema Status: Chronic Assessment and Plan: * chronic issue at baseline * thought to be due to chronic venous stasis/insufficiency * however, seems acutely worse probably due to #3 (5) Hypokalemia: Code(s): E87.6 - Hypokalemia Status: Acute Assessment and Plan: * doing better * suspect secondary to increased dosage of oral diuretic prior to admission * replete as needed with diuresis * spironolactone use should help as well * follow trend of K+ (6) Diabetes mellitus: Qualifiers: Diabetes mellitus type: type 2 Diabetes mellitus group home insulin use: with group home use Diabetes mellitus complication status: without complication Qualified Code(s): E11.9 - Type 2 diabetes mellitus without complications; Z79.4 - skilled nursing (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 Subjective Date/time seen: 10/25/23 13:46 Interval history: Follow-up for acute on chronic hyponatremia and chronic kidney disease. Sodium, swelling/edema, and renal function all appear stable if not improving; no apparent distress noted at the time of my visit, working with PT/OT as tolerated; no other acute complaints. Exam Narrative: General: WD/WN female in NAD Heart: normal S1 and S2; no rub Lungs: decreased at bases Abdomen: soft, nontender, positive bowel sounds Extremities: no cyanosis or clubbing; trace edema Skin: chronic venous stasis changes - unchnged Objective Data Vital Signs Vital Signs: Vital Signs Temp Pulse Resp BP Pulse Ox O2 Del Meth
[2023-10-25 14:00] VITALS: BP 139/60; PULSE 108; RESP 16; TEMP 36.4; O2SAT 95
--- NOTE | 2023-10-25 15:25 | PM.PNCARD ---
Progress Note: A&P Assessment and Plan (1) Bilateral lower extremity edema: Code(s): R60.0 - Localized edema Status: Acute Assessment and Plan: 68-year-old female with CHFpEF, left carotid stenosis (50-69%), diabetes mellitus on insulin, CKD, chronic macrocytic anemia, dyslipidemia, osteoporosis, DJD. Patient with progressively worsening bilateral lower extremity edema which appears to be multifactorial from CHF with preserved ejection fraction, hypoalbuminemia, dependent edema. Patient reports worsening lower extremity swelling after being on wheelchair lately. -Continue diuresis with Bumex. Has been diuresing well. (2) Pericardial effusion: Code(s): I31.39 - Other pericardial effusion (noninflammatory) Status: Acute Assessment and Plan: Patient has [id number] pericardial effusion, no tamponade. Pericardial effusion in the setting of CKD, hypoalbuminemia. Avoid aggressive diuresis. May repeat echocardiogram in next couple of weeks as an outpatient to check for any progression of pericardial effusion. (3) Chronic diastolic CHF (congestive heart failure): Code(s): I50.32 - Chronic diastolic (congestive) heart failure Status: Acute Assessment and Plan: Continue SGLT2 inhibitor for diastolic heart failure. Continue spironolactone. Optimal blood pressure control. (4) Renal insufficiency: Code(s): N28.9 - Disorder of kidney and ureter, unspecified Status: Acute Assessment and Plan: Management as per Nephrology. (5) Carotid stenosis: Code(s): I65.29 - Occlusion and stenosis of unspecified carotid artery Status: Acute Assessment and Plan: Aspirin, statin. Outpatient periodic surveillance carotid duplex. Subjective Date/time seen: 10/25/23 15:25 Interval history: Cardiology follow up for CHF Continues to diurese well. Leg swelling is getting better. Feels good overall. Exam Const: General: comfortable and no acute distress HENMT: Mouth: Yes moist mucous membranes Eyes: General: appearance normal, both eyes and all related structures Sclera: sclerae normal Resp: Effort & Inspection: normal respiratory effort Cardio: Rate: regular rate Rhythm: regular rhythm Skin: General skin exam: normal color Neuro: Speech: normal speech Psych: Mental Status: mental status grossly normal Affect: normal affect Objective Data Vital Signs Vital Signs: Vital Signs - 24 hr 10/24/23 20:00 10/24/23 21:36 10/25/23 06:00 Temperature 36.1 C L 36.5 C Pulse Rate 105 H 114 H 97 Respiratory Rate 17 19 19 Blood Pressure 135/65 135/64 Pulse Oximetry 100 97 99 Oxygen Delivery Room Air 10/25/23 08:00 Temperature Pulse Rate 97 Respiratory Rate 19 Blood Pressure Pulse Oximetry 99 Oxygen Delivery Room Air Intake/Output Intake/Output: Intake & Output 10/22/23 10/23/23 10/24/23 10/25/23 23:59 23:59 23:59 23:59 Intake Total 338 144 8131 480 Output Total 3050 2600 600 Balance -9742 -4422 1124 -120 Meds/Results Medications: Active Medications Generic Name Dose Route Start Last Admin Trade Name Freq PRN Reason Stop Dose Admin Acetaminophen 650 mg 10/20/23 14:01 Acetaminophen 325 Mg Tablet PO Q4H PRN Mild Pain (1-3) or Fever Hydrocodone Bitart/Acetaminophen 1 tab 10/20/23 14:01 10/24/23 22:25 Hydrocodone/Acetaminophen (*Crx) 5-325 Mg Tablet PO 1 tab Q4H PRN Administration Pain Rated 4-6 Alendronate Sodium 70 mg 10/24/23 06:30 10/24/23 05:39 Alendronate Sodium 70 Mg Tablet PO 70 mg Tu@0630 NEIL Administration Aspirin 324 mg 10/21/23 09:00 10/25/23 08:13 Aspirin 81 Mg Chewable Tablet PO 324 mg DAILY NEIL Administration Atorvastatin Calcium 10 mg 10/21/23 09:00 10/25/23 08:13 Atorvastatin 10 Mg Tablet PO 10 mg QAM NEIL Administration Bumetanide 1 mg 10/22/23 17:00 10/25/23 08:22 Bumetanide Inj 1 Mg/4 Ml Vial IV PUSH 1 m
[2023-10-25 17:22] LABS: Glucose Point of Care 99 mg/dl (65-105)
[2023-10-25] MEDS: INSULIN GLARGINE (*BKC) 100 UNITS/ML 15 UNITS SUB-Q (21:02)
[2023-10-25 21:40] LABS: Glucose Point of Care 144 mg/dl (65-105)
[2023-10-25 22:00] VITALS: BP 147/71; PULSE 106; RESP 19; TEMP 36.5; O2SAT 99
[2023-10-26 05:38] LABS: Basophils Absolute Auto 0.1 K/mm3 (0.0-0.1); Basophils Percent Auto 0.9 % (0.2-1.2); Eosinophils Absolute Auto 0.5 K/mm3 (0-0.3); Eosinophils Percent Auto 7.3 % (0-4.4); Hematocrit 29.1 % (37.0-47.0); Hemoglobin 9.6 g/dL (12.0-15.0); Immature Granulocyte Absolute 0.03 K/mm3 (0.00-0.031); Immature Granulocyte Percent A 0.4 % (0-0.5); Lymphocytes Absolute Auto 0.91 K/mm3 (0.9-3.2); Lymphocytes Percent Auto 13.6 % (18.3-44.2); Mean Corpuscular Hemoglobin 33.8 pg (26-34); Mean Corpuscular Volume 102.5 fl (80-100); Mean Platelet Volume 9.4 fl (7.4-10.4); Monocytes Absolute Auto 0.8 K/mm3 (0.1-0.6); Monocytes Percent Auto 11.5 % (2.6-8.5); Neutrophils Absolute Auto 4.4 K/mm3 (1.3-6.7); Neutrophils Percent Auto 66.3 % (45.5-73.1); Platelet Count Result 182 k/mm3 (150-375); Red Blood Count 2.84 M/mm3 (4.2-5.4); Red Cell Distribution Width 12.6 % (11.5-14.5); White Blood Count 6.7 K/mm3 (4.5-10.0)
[2023-10-26 05:53] LABS: Alanine Aminotransferase 21 U/L (6-35); Albumin Level 2.9 g/dL (3.5-5.1); Alkaline Phosphatase 221 U/L (38-126); Anion Gap 6 mmol/L (8-16); Aspartate Amino Transferase 55 U/L (14-36); Bilirubin,Total 1.7 mg/dL (0.2-1.3); Blood Urea Nitrogen 12 mg/dL (7-17); Calcium 8.2 mg/dL (8.4-10.2); Carbon Dioxide 31 mmol/L (22-30); Chloride 93 mmol/L (98-107); Estimated CRCL calculation 46 ml/min; Estimated Glomerular Filt Rate 45; Glucose 85 mg/dL (65-110); Magnesium 1.5 mg/dL (1.6-2.3); Potassium 3.7 mmol/L (3.4-5.0); Sodium 130 mmol/L (137-145)
[2023-10-26 06:00] VITALS: BP 113/52; PULSE 100; RESP 20; TEMP 36.6; O2SAT 99
[2023-10-26 08:31] LABS: Glucose Point of Care 78 mg/dl (65-105)
[2023-10-26] MEDS: CYANOCOBALAMIN 1,000 MCG TABLET 1000 MCG PO (09:51)
[2023-10-26] MEDS: ASPIRIN 81 MG CHEWABLE TABLET 324 MG PO (09:51)
[2023-10-26] MEDS: THERAPEUTIC MULTIVITAMINS/MINERALS TAB (*BKC) 1 TABLET PO (09:51)
[2023-10-26] MEDS: PANTOPRAZOLE 40 MG TABLET PO (09:51)
[2023-10-26] MEDS: FERROUS SULFATE 325 MG TABLET DR BY MOUTH (09:51)
[2023-10-26] MEDS: THIAMINE HCL 100 MG TABLET PO (09:51)
[2023-10-26] MEDS: EMPAGLIFLOZIN 10 MG TABLET PO (09:51)
[2023-10-26] MEDS: ATORVASTATIN 10 MG TABLET PO (09:51)
[2023-10-26] MEDS: FOLIC ACID 1 MG TABLET PO (09:52)
[2023-10-26] MEDS: PYRIDOXINE HCL 50 MG TABLET 100 MG PO (09:52)
[2023-10-26] MEDS: POTASSIUM CHLORIDE 20 MEQ ER TABLET PO ×2 (09:53→16:56)
[2023-10-26] MEDS: SODIUM CHLORIDE 1 GM TABLET PO ×2 (09:53→16:56)
[2023-10-26] MEDS: MAGNESIUM OXIDE 400 MG TABLET PO (09:53)
[2023-10-26] MEDS: SPIRONOLACTONE 25 MG TABLET PO (09:53)
[2023-10-26] MEDS: BUMETANIDE INJ 1 MG/4 ML VIAL IV PUSH (09:54)
[2023-10-26] MEDS: INSULIN ASPART (*BKC) 100 UNITS/ML SUB-Q ×3 (09:54→16:57)
[2023-10-26] MEDS: TACROLIMUS 0.1% 30 GM OINTMENT 1 APPLIC TOPICAL (10:05)
[2023-10-26] MEDS: EUCERIN CREAM 120 GM JAR 1 APPLIC TOPICAL (10:06)
[2023-10-26] MEDS: TOLNAFTATE 1% POWDER 45 GM BTL 1 APPLIC TOPICAL (10:11)
[2023-10-26 12:16] LABS: Glucose Point of Care 102 mg/dl (65-105)
--- NOTE | 2023-10-26 13:43 | P.PNNP_ITS ---
Progress Note: A&P Assessment and Plan (1) Chronic hyponatremia: Code(s): E87.1 - Hypo-osmolality and hyponatremia Status: Chronic Assessment and Plan: * improving if not stable * chronic issue that dates back several years * has been as low as 117mmol/L in the past * during that time/hospitalization, she required 3% saline, normal saline, salt tabs, lasix, and fluid restriction for treatment * baseline sodium runs around 127 - 130mmol/L in the last few years * previous extensive work-up (TSH, cortisol, SPE, UPE...etc) was essentially negative * it was felt her hyponatremia was related to her alcohol use and renal insufficiency along with underlying liver disease * her lower sdoium on admission are likely related to her fluid retention/volume overload issues... * continue salt tabs with IV diuretics - switch to oral diuretics? * follow trend of sodium with current therapy/interventions (2) Chronic kidney disease, stage 3: Code(s): N18.30 - Chronic kidney disease, stage 3 unspecified Status: Chronic Assessment and Plan: * baseline creatinien runs ~ 1.2 - 1.7mg/dl * this causes her to fluctuate between CKD stage 3A and stage 3B * presumably related to her CHF, previous HTN (not an issue now), DM, and vascular disease (3) Anasarca: Code(s): R60.1 - Generalized edema Status: Acute Assessment and Plan: * as evidence by clinical exam and imaging on admission * continue with IV diuresis - switch to oral diuretics * continue fluid restriction * follow I/Os and daily weights (4) Bilateral lower extremity edema: Code(s): R60.0 - Localized edema Status: Chronic Assessment and Plan: * chronic issue at baseline * thought to be due to chronic venous stasis/insufficiency * however, seems acutely worse probably due to #3 (5) Hypokalemia: Code(s): E87.6 - Hypokalemia Status: Acute Assessment and Plan: * doing better * suspect secondary to increased dosage of oral diuretic prior to admission * replete as needed with diuresis * spironolactone use should help as well * follow trend of K+ (6) Diabetes mellitus: Qualifiers: Diabetes mellitus type: type 2 Diabetes mellitus longwall foreman insulin use: with penitentiary use Diabetes mellitus complication status: without complication Qualified Code(s): E11.9 - Type 2 diabetes mellitus without complications; Z79.4 - buffer nickel (current) use of insulin Code(s): E11.9 - Type 2 diabetes mellitus without complications Status: Chronic Assessment and Plan: * follow accu-cheks * glyceminc control per hospitalists Not opposed to discharge from renal perspective if otherwise medically stable. Will continue to follow. Subjective Date/time seen: 10/26/23 13:43 Interval history: Follow-up for acute on chronic hyponatremia and chronic kidney disease. No nw issues or problems voiced at the time of my visit; hoping for discharge today to avoid the bad weather tomorrow; kidney function, sodium, and edema stable if not better currently; mobility has improved with PT/OT. Exam Narrative: General: WD/WN female in NAD Heart: normal S1 and S2; no rub Lungs: clear anteriorly; decreased at bases Abdomen: soft, nontender, positive bowel sounds Extremities: no cyanosis or clubbing; trace edema Skin: chronic venous stasis changes - unchnged Objective Data Vital Signs Vital Signs:
--- NOTE | 2023-10-26 13:43 | PM.PNNEP ---
Progress Note: A&P Assessment and Plan (1) Chronic hyponatremia: Code(s): E87.1 - Hypo-osmolality and hyponatremia Status: Chronic Assessment and Plan: improving if not stable chronic issue that dates back several years has been as low as 117mmol/L in the past during that time/hospitalization, she required 3% saline, normal saline, salt tabs, lasix, and fluid restriction for treatment baseline sodium runs around 127 - 130mmol/L in the last few years previous extensive work-up (TSH, cortisol, SPE, UPE...etc) was essentially negative it was felt her hyponatremia was related to her alcohol use and renal insufficiency along with underlying liver disease her lower sdoium on admission are likely related to her fluid retention/volume overload issues... continue salt tabs with IV diuretics - switch to oral diuretics? follow trend of sodium with current therapy/interventions (2) Chronic kidney disease, stage 3: Code(s): N18.30 - Chronic kidney disease, stage 3 unspecified Status: Chronic Assessment and Plan: baseline creatinien runs ~ 1.2 - 1.7mg/dl this causes her to fluctuate between CKD stage 3A and stage 3B presumably related to her CHF, previous HTN (not an issue now), DM, and vascular disease (3) Anasarca: Code(s): R60.1 - Generalized edema Status: Acute Assessment and Plan: as evidence by clinical exam and imaging on admission continue with IV diuresis - switch to oral diuretics continue fluid restriction follow I/Os and daily weights (4) Bilateral lower extremity edema: Code(s): R60.0 - Localized edema Status: Chronic Assessment and Plan: chronic issue at baseline thought to be due to chronic venous stasis/insufficiency however, seems acutely worse probably due to #3 (5) Hypokalemia: Code(s): E87.6 - Hypokalemia Status: Acute Assessment and Plan: doing better suspect secondary to increased dosage of oral diuretic prior to admission replete as needed with diuresis spironolactone use should help as well follow trend of K+ (6) Diabetes mellitus: Qualifiers: Diabetes mellitus type: type 2 Diabetes mellitus terminal makeup operator insulin use: with terminal makeup operator use Diabetes mellitus complication status: without complication Qualified Code(s): E11.9 - Type 2 diabetes mellitus without complications; Z79.4 - long term care phlebotomist (current) use of insulin Code(s): E11.9 - Type 2 diabetes mellitus without complications Status: Chronic Assessment and Plan: follow accu-cheks glyceminc control per hospitalists Not opposed to discharge from renal perspective if otherwise medically stable. Will continue to follow. Subjective Date/time seen: 10/26/23 13:43 Interval history: Follow-up for acute on chronic hyponatremia and chronic kidney disease. No nw issues or problems voiced at the time of my visit; hoping for discharge today to avoid the bad weather tomorrow; kidney function, sodium, and edema stable if not better currently; mobility has improved with PT/OT. Exam Narrative: General: WD/WN female in NAD Heart: normal S1 and S2; no rub Lungs: clear anteriorly; decreased at bases Abdomen: soft, nontender, positive bowel sounds Extremities: no cyanosis or clubbing; trace edema Skin: chronic venous stasis changes - unchnged Objective Data Vital Signs Vital Signs: Vital Signs Temp Pulse Resp BP Pulse Ox O2 Del Method 10/26/23 13:09 98.5 F 112 H 20 141/74 H 100 10/26/23 08:20 Room Air 10/26/23 06:00 97.9 F 100 20 113/52 L 99 10/25/23 22:00 97.7 F 106 H 19 147/71 H 99 Intake/Output Intake/Output: Intake & Output 10/23/23 10/24/23 10/25/23 10/26/23 23:59 23:59 23:59 23:59 Intake Total 530 1124 870 530 Output Total 2600 4000 1125 Balance -2070 1124 -3130 -595 Meds/Results Medications: Medications: Active Medications Gene
--- NOTE | 2023-10-26 15:20 | PM.PNCARD ---
Progress Note: A&P Assessment and Plan (1) Bilateral lower extremity edema: Code(s): R60.0 - Localized edema Status: Acute Assessment and Plan: 68-year-old female with CHFpEF, left carotid stenosis (50-69%), diabetes mellitus on insulin, CKD, chronic macrocytic anemia, dyslipidemia, osteoporosis, DJD. Patient with progressively worsening bilateral lower extremity edema which appears to be multifactorial from CHF with preserved ejection fraction, hypoalbuminemia, dependent edema. Patient reports worsening lower extremity swelling after being on wheelchair lately. -Continue Bumex, but will shift to p.o. bumex 0.5mg b.i.d. Still has some edema, but this has improved significantly. From my perspective, she could discharge today with close follow up in our office. Cardiology will sign off please call with any questions. (2) Pericardial effusion: Code(s): I31.39 - Other pericardial effusion (noninflammatory) Status: Acute Assessment and Plan: Patient has [id number] pericardial effusion, no tamponade. Pericardial effusion in the setting of CKD, hypoalbuminemia. Avoid aggressive diuresis. May repeat echocardiogram in next couple of weeks as an outpatient to check for any progression of pericardial effusion. (3) Chronic diastolic CHF (congestive heart failure): Code(s): I50.32 - Chronic diastolic (congestive) heart failure Status: Acute Assessment and Plan: Continue SGLT2 inhibitor for diastolic heart failure. Continue spironolactone. Optimal blood pressure control. (4) Renal insufficiency: Code(s): N28.9 - Disorder of kidney and ureter, unspecified Status: Acute Assessment and Plan: Management as per Nephrology. (5) Carotid stenosis: Code(s): I65.29 - Occlusion and stenosis of unspecified carotid artery Status: Acute Assessment and Plan: Aspirin, statin. Outpatient periodic surveillance carotid duplex. Subjective Date/time seen: 10/26/23 15:20 Interval history: Cardiology follow up for CHF Continues to feel well. Swelling has significantly improved. No shortness of breath, chest pain. Review of Systems Review of Systems: General: Negative for fever, chills, fatigue Psychological: Negative for anxiety, depression Ophthalmic: negative for loss of vision ENT: Negative for epistaxis, headaches Allergy and immunology: Negative for hives, nasal congestion Hematologic and lymphatic: Negative for overt bleeding problems Endocrine: Negative for hot flashes, palpitations Respiratory: Negative for cough, hemoptysis Cardiovascular: Negative for chest pain, positive for lower extremity swelling Gastrointestinal: Negative for abdominal pain Musculoskeletal: Positive for joint pain Neurological: Positive for generalized weakness Dermatological: Positive for lower extremity skin changes All systems reviewed & are unremarkable except as noted in HPI and below Exam Const: General: comfortable, no acute distress, alert and awake Orientation/consciousness: patient oriented x3 HENMT: Head: normal to inspection Eyes: General: appearance normal, both eyes and all related structures Pupils: Equal, round and reactive pupils present Neck: Neck: normal visual inspection, supple and no JVD Carotids: normal carotid upstroke Resp: Effort & Inspection: normal respiratory effort Auscultation: clear to auscultation bilaterally Cardio: Rate: regular rate Rhythm: regular rhythm Heart sounds: S1 normal heart sound present, S2 normal heart sound present and no murmurs GI: Auscultation: normal bowel sounds Skin: General skin exam: normal color Neuro: General: patient oriented x3 Cranial nerves: Yes Equal, round and reactive pupils present Extrem: General: abnormal to inspection Other: 1+ bilateral pitting lower extremity edema extending to the thighs. She also has hyper pigmentation of chronic skin noonan
[2023-10-26 16:09] VITALS: BP 141/74; PULSE 112; RESP 20; TEMP 36.9; O2SAT 100
[2023-10-26] MEDS: BUMETANIDE 0.5 MG TABLET PO (16:56)
[2023-10-26 17:01] LABS: Glucose Point of Care 109 mg/dl (65-105)
--- NOTE | 2023-10-26 17:22 | PM.DS ---
DS: Admitting Diagnosis Discharge Date 10/26/23 Admitting Diagnosis generalized edema bilateral lower extremity edema hypokalemia Chronic hyponatremia Renal insufficiency alcohol abuse Diabetes mellitus DS: Discharge Diagnosis Discharge Diagnosis (1) Anasarca: Code(s): R60.1 - Generalized edema Status: Acute (2) Bilateral lower extremity edema: Code(s): R60.0 - Localized edema Status: Acute (3) Hypokalemia: Code(s): E87.6 - Hypokalemia Status: Acute (4) Chronic hyponatremia: Code(s): E87.1 - Hypo-osmolality and hyponatremia Status: Acute (5) Renal insufficiency: Code(s): N28.9 - Disorder of kidney and ureter, unspecified Status: Acute (6) Alcohol abuse: Code(s): F10.10 - Alcohol abuse, uncomplicated Status: Acute (7) Diabetes mellitus: Qualifiers: Diabetes mellitus complication status: without complication 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 She has been treated for acute on chronic CHF, anasarca secondary to cirrhosis, worsening renal insufficiency.? Workup in the hospital included a chest x-ray which shown pulmonary vascular congestion consistent with CHF, mild lower lung infiltrate or atelectasis is suggested.? Venous Dopplers were also completed which did not show any evidence of DVT.? ProBNP was 4340.? Echo was ordered and showed normal LV systolic function with an ejection fraction of 60-65%, normal diastolic dysfunction.?Cardiology and Nephrology were consulted and following. Patient was diuresed with Lasix, spironolactone, and started on Jardiance. Cardiology switched her to Bumex instead of Lasix and she will be discharged home with Bumex, spironolactone, and Jardiance. On examination today patient is alert and oriented x3, sitting in the chair. She denies any new complaints today. Labs are stable. Her edema is much improved. Patient is stable for discharge today back to home with home health. She will need to follow up with Cardiology in 2 weeks. Final diagnosis: Diastolic heart failure, chronic. Anasarca. Renal insufficiency Status at Discharge Cognitive/behavioral status at discharge: Alert and oriented x3 Functional status at discharge: uses cane/walker Overall status at discharge: patient is progressing back to baseline Time Spent with Patient Time attestation: Total time spent providing and/or coordinating discharge services: Time spent: Greater than 30 minutes Exam Narrative: General: In no acute distress, well nourished Head: atraumatic, no encephalopathy Eyes: EOMI, PERRLA, sclera clear ENT: moist mucous membranes, nasal passages clear Neck: supple, no JVD, no adenopathy, trachea midline Cardiac: Normal S1 and S2. No murmur, gallops or friction rubs, peripheral pulses intact. Respiratory: Lungs clear to auscultation, no adventitious lung sounds Gastrointestinal: soft, non-distended, non-tender, normoactive bowel sounds. : voiding without difficulty. Extremities: moves all extremities well, improved anasarca, good ROM, strength 5/5 Skin: clean, dry, intact. No wounds or lesions. Neuro: Alert and oriented x4, cranial nerves intact, no neuro deficits. Psych: normal mood, normal affect, interactive DS: Data Data Completed and Pending Completed studies during hospitalization: Chest x-ray venous doppler study Pending studies at discharge: None Labs on day of discharge: Labs from last 24 hours
== END 2023-10-26 18:09 | disposition home health service (06) | DRG 291 ==
LOC: ANHED 10:10 → ANH2MED 15:24
PROVIDERS: Nurse Practitioner; Student in an Organized Health Care Education/Training Program; Admitting Provider General Practice; Emergency Provider Emergency Medicine; PCP Physician Assistant; Visit Provider Nurse Practitioner Acute Care
DX: I13.0 Hypertensive heart and chronic kidney disease with heart failure and stage 1 through stage 4 chronic kidney disease, or unspecified chronic kidney disease (principal); I50.33 Acute on chronic diastolic (congestive) heart failure; E87.1 Hypo-osmolality and hyponatremia; K70.30 Alcoholic cirrhosis of liver without ascites; R60.1 Generalized edema; E87.6 Hypokalemia; F10.10 Alcohol abuse, uncomplicated; E11.22 Type 2 diabetes mellitus with diabetic chronic kidney disease; N18.9 Chronic kidney disease, unspecified; G47.33 Obstructive sleep apnea (adult) (pediatric); M19.90 Unspecified osteoarthritis, unspecified site; I77.9 Disorder of arteries and arterioles, unspecified; K21.9 Gastro-esophageal reflux disease without esophagitis; D64.9 Anemia, unspecified; Z96.641 Presence of right artificial hip joint; Z79.4 Long term (current) use of insulin; Z98.42 Cataract extraction status, left eye; Z98.41 Cataract extraction status, right eye; Z90.710 Acquired absence of both cervix and uterus; Z87.891 Personal history of nicotine dependence; E66.9 Obesity, unspecified; Z68.36 Body mass index [BMI] 36.0-36.9, adult
CPT/HCPCS: 36415; 71045; 80053; 82570; 82948; 83735; 83880; 83930; 83935; 84300; 85025; 85610; 85730; 93005; 93306; 93970; 96374; 96376; 97110; 97161; 97166; 97530; 97535; 99285; A9270; G0378; J1815; J1939; J1940; J3475

== ENCOUNTER 2023-11-23 10:26 | Outpatient (CLI) | payer MEDICARE, SELFPAY ==
[2023-11-23 10:56] LABS: Anion Gap 5 mmol/L (8-16); Blood Urea Nitrogen 9 mg/dL (7-17); Calcium 8.8 mg/dL (8.4-10.2); Carbon Dioxide 28 mmol/L (22-30); Chloride 95 mmol/L (98-107); Estimated Glomerular Filt Rate 49; Glucose 118 mg/dL (65-110); Potassium 4.1 mmol/L (3.4-5.0); Sodium 128 mmol/L (137-145)
== END 2023-11-23 10:27 | disposition home or self-care (01) ==
LOC: ANHLAB 10:29
PROVIDERS: PCP Physician Assistant; Visit Provider Nurse Practitioner
DX: I50.30 Unspecified diastolic (congestive) heart failure (principal)
CPT/HCPCS: 36415; 80048

== ENCOUNTER 2024-01-06 11:18 | Outpatient (CLI) | payer MEDICARE, SELFPAY ==
--- NOTE | ~2024-01-06 | MM_ITS ---
EXAMINATION: MM screening lisandro BI w connie HISTORY: Screening mammogram TECHNIQUE: Craniocaudal and mediolateral oblique 3-D tomosynthesis images were obtained and synthetic 2-D images were generated. CAD analysis was submitted and interpreted. COMPARISON: 05/25/2022, 12/21/2018 bilateral screening mammogram examinations BREAST PARENCHYMAL COMPOSITION: There are scattered areas of fibroglandular density. FINDINGS: Scattered benign calcifications including arterial calcification. The arterial calcificatio n may be associated with increased risk for cardiovascular disease. There is no evidence of suspiciou s mass, calcification, or architectural distortion to suggest malignancy in either breast. There has been no suspicious interval change. IMPRESSION: 1. No mammographic evidence of malignancy. 2. Recommend routine screening mammography in one year. BI-RADS Category 2: Benign finding(s). Reviewed, dictated and finalized at location A.
== END 2024-01-06 11:19 | disposition home or self-care (01) ==
PROVIDERS: PCP Physician Assistant; Visit Provider Obstetrics & Gynecology Gynecology
DX: Z12.31 Encounter for screening mammogram for malignant neoplasm of breast (principal)
CPT/HCPCS: 77063; 77067

== ENCOUNTER 2024-01-18 11:55 | Outpatient (CLI) | payer MEDICARE, SELFPAY ==
[2024-01-18 13:13] LABS: Basophils Absolute Auto 0.1 K/mm3 (0.0-0.1); Basophils Percent Auto 0.7 % (0.2-1.2); Eosinophils Absolute Auto 0.1 K/mm3 (0-0.3); Eosinophils Percent Auto 1.8 % (0-4.4); Hematocrit 33.3 % (37.0-47.0); Immature Granulocyte Absolute 0.09 K/mm3 (0.00-0.031); Immature Granulocyte Percent A 1.2 % (0-0.5); Lymphocytes Absolute Auto 0.78 K/mm3 (0.9-3.2); Lymphocytes Percent Auto 10.8 % (18.3-44.2); Mean Corpuscular Hemoglobin 33.6 pg (26-34); Mean Corpuscular Volume 101.8 fl (80-100); Mean Platelet Volume 10.2 fl (7.4-10.4); Monocytes Absolute Auto 0.8 K/mm3 (0.1-0.6); Monocytes Percent Auto 10.5 % (2.6-8.5); Neutrophils Absolute Auto 5.4 K/mm3 (1.3-6.7); Platelet Count Result 172 k/mm3 (150-375); Red Blood Count 3.27 M/mm3 (4.2-5.4); Red Cell Distribution Width 13.7 % (11.5-14.5); White Blood Count 7.2 K/mm3 (4.5-10.0)
[2024-01-18 13:19] LABS: Alanine Aminotransferase 24 U/L (6-35); Alkaline Phosphatase 280 U/L (38-126); Anion Gap 6 mmol/L (4-12); Aspartate Amino Transferase 44 U/L (14-36); Bilirubin,Total 1.5 mg/dL (0.2-1.3); Blood Urea Nitrogen 14 mg/dL (7-17); Carbon Dioxide 32 mmol/L (22-30); Chloride 89 mmol/L (98-107); Estimated Glomerular Filt Rate 55; Glucose 132 mg/dL (65-110); Potassium 4.2 mmol/L (3.4-5.0); Sodium 127 mmol/L (137-145)
[2024-01-18 13:22] LABS: Anion Gap 4 mmol/L (4-12); Blood Urea Nitrogen 13 mg/dL (7-17); Calcium 8.9 mg/dL (8.4-10.2); Carbon Dioxide 33 mmol/L (22-30); Chloride 89 mmol/L (98-107); Estimated Glomerular Filt Rate 55; Glucose 131 mg/dL (65-110); Phosphorus 3.5 mg/dL (2.5-4.5); Potassium 3.6 mmol/L (3.4-5.0); Sodium 126 mmol/L (137-145)
[2024-01-18 13:31] LABS: Parathyroid Intact 144.8 pg/mL (7.5-53.5)
[2024-01-18 14:25] LABS: Creatinine Urine 14.1 mg/dL; Total Protein Urine Random 16 mg/dL; Ur Ttl Prot Creatinine Ratio 1.13 mg/mg (0-0.20)
== END 2024-01-18 11:56 | disposition home or self-care (01) ==
LOC: ANHLAB 12:01
PROVIDERS: PCP Physician Assistant; Referring Provider Physician Assistant; Visit Provider Internal Medicine Nephrology
DX: E87.1 Hypo-osmolality and hyponatremia (principal); I12.9 Hypertensive chronic kidney disease with stage 1 through stage 4 chronic kidney disease, or unspecified chronic kidney disease; N18.32 Chronic kidney disease, stage 3b; N25.81 Secondary hyperparathyroidism of renal origin; D64.9 Anemia, unspecified; E87.6 Hypokalemia; E55.9 Vitamin D deficiency, unspecified
CPT/HCPCS: 36415; 80053; 80069; 82306; 82570; 83970; 84156; 85025

== ENCOUNTER 2024-05-17 11:33 | Outpatient (CLI) | payer MEDICARE, SELFPAY ==
[2024-05-17 12:22] LABS: Albumin Level 3.9 g/dL (3.5-5.1); Anion Gap 12 mmol/L (4-12); Blood Urea Nitrogen 8 mg/dL (7-17); Carbon Dioxide 27 mmol/L (22-30); Chloride 89 mmol/L (98-107); Estimated Glomerular Filt Rate 49; Glucose 90 mg/dL (65-110); Phosphorus 3.5 mg/dL (2.5-4.5); Potassium 4.1 mmol/L (3.4-5.0); Sodium 128 mmol/L (137-145)
[2024-05-17 13:03] LABS: Creatinine Urine 15.4 mg/dL; Total Protein Urine Random 13 mg/dL; Ur Ttl Prot Creatinine Ratio 0.84 mg/mg (0-0.20)
[2024-05-18 14:00] LABS: Parathyroid Intact 88.8 pg/mL (7.5-53.5)
== END 2024-05-17 11:34 | disposition home or self-care (01) ==
PROVIDERS: PCP Nurse Practitioner; Visit Provider Internal Medicine Nephrology
DX: I12.9 Hypertensive chronic kidney disease with stage 1 through stage 4 chronic kidney disease, or unspecified chronic kidney disease (principal); N18.31 Chronic kidney disease, stage 3a; E87.1 Hypo-osmolality and hyponatremia; N25.81 Secondary hyperparathyroidism of renal origin
CPT/HCPCS: 36415; 80069; 82570; 83970; 84156

== ENCOUNTER 2024-06-14 11:23 | Outpatient (CLI) | payer MEDICARE, SELFPAY ==
[2024-06-14 11:55] LABS: Albumin Level 3.8 g/dL (3.5-5.1); Anion Gap 11 mmol/L (4-12); Blood Urea Nitrogen 9 mg/dL (7-17); Calcium 8.7 mg/dL (8.4-10.2); Carbon Dioxide 29 mmol/L (22-30); Chloride 90 mmol/L (98-107); Estimated Glomerular Filt Rate 55; Glucose 137 mg/dL (65-110); Phosphorus 4.2 mg/dL (2.5-4.5); Sodium 130 mmol/L (137-145)
== END 2024-06-14 11:24 | disposition home or self-care (01) ==
LOC: ANHLAB 11:28
PROVIDERS: PCP Nurse Practitioner; Visit Provider Internal Medicine Nephrology
DX: N18.31 Chronic kidney disease, stage 3a (principal)
CPT/HCPCS: 36415; 80069

== ENCOUNTER 2024-08-26 11:30 | Outpatient (CLI) | payer MEDICARE, SELFPAY ==
[2024-08-26 12:19] LABS: Basophils Absolute Auto 0.1 K/mm3 (0.0-0.1); Basophils Percent Auto 0.8 % (0.2-1.2); Eosinophils Absolute Auto 0.2 K/mm3 (0-0.3); Eosinophils Percent Auto 2.4 % (0-4.4); Hematocrit 31.5 % (37.0-47.0); Hemoglobin 10.2 g/dL (12.0-15.0); Immature Granulocyte Absolute 0.08 K/mm3 (0.00-0.031); Immature Granulocyte Percent A 1.2 % (0-0.5); Lymphocytes Absolute Auto 0.58 K/mm3 (0.9-3.2); Lymphocytes Percent Auto 8.7 % (18.3-44.2); Mean Corpuscular HGB Conc 32.4 g/dl (32-36); Mean Corpuscular Hemoglobin 33.2 pg (26-34); Mean Corpuscular Volume 102.6 fl (80-100); Mean Platelet Volume 10.4 fl (7.4-10.4); Monocytes Percent Auto 15.4 % (2.6-8.5); Neutrophils Absolute Auto 4.8 K/mm3 (1.3-6.7); Neutrophils Percent Auto 71.5 % (45.5-73.1); Platelet Count Result 161 k/mm3 (150-375); Red Blood Count 3.07 M/mm3 (4.2-5.4); Red Cell Distribution Width 12.7 % (11.5-14.5); White Blood Count 6.6 K/mm3 (4.5-10.0)
[2024-08-26 12:34] LABS: Alanine Aminotransferase 29 U/L (6-35); Albumin Level 3.7 g/dL (3.5-5.1); Alkaline Phosphatase 449 U/L (38-126); Anion Gap 9 mmol/L (4-12); Aspartate Amino Transferase 82 U/L (14-36); Bilirubin,Total 2.1 mg/dL (0.2-1.3); Blood Urea Nitrogen 10 mg/dL (7-17); Calcium 8.7 mg/dL (8.4-10.2); Carbon Dioxide 29 mmol/L (22-30); Chloride 90 mmol/L (98-107); Estimated Glomerular Filt Rate 49; Glucose 113 mg/dL (65-110); Potassium 4.5 mmol/L (3.4-5.0); Sodium 128 mmol/L (137-145)
[2024-08-26 13:13] LABS: Cholesterol 138 mg/dL (0-200); HDL Direct 71 mg/dL; Triglycerides 83 mg/dL (<150)
[2024-08-26 13:14] LABS: Hemoglobin A1C 5.1 % (<5.7)
[2024-08-26 13:25] LABS: LDL Cholesterol Direct 45 mg/dL
[2024-08-26 13:35] LABS: Creatinine Urine 14.2 mg/dL
[2024-08-26 13:42] LABS: MALB Creatinine Ratio < 42.3 mg/g (0-30); Microalbumin Urine Random < 6.0 mg/L (0-16.7)
[2024-08-26 13:52] LABS: Vitamin D 25 Hydroxy 86.1 ng/mL
[2024-08-26 14:26] LABS: Folic Acid > 20.0 ng/mL (2.76->20)
== END 2024-08-26 11:31 | disposition home or self-care (01) ==
LOC: ANHLAB 11:37
PROVIDERS: Physician Assistant; PCP Nurse Practitioner; Visit Provider Internal Medicine
DX: E55.9 Vitamin D deficiency, unspecified (principal); R53.83 Other fatigue; E11.22 Type 2 diabetes mellitus with diabetic chronic kidney disease; N18.31 Chronic kidney disease, stage 3a
CPT/HCPCS: 36415; 80053; 80061; 82043; 82306; 82607; 82746; 83036; 84443; 85025

== ENCOUNTER 2024-09-03 07:05 | Outpatient (RCR) | payer MEDICARE, SELFPAY ==
[2024-08-06 14:38] VITALS: BMI 30.8
== END 2024-10-21 12:32 | disposition home or self-care (01) ==
LOC: ANHWOC 07:05
PROVIDERS: PCP Nurse Practitioner; Visit Provider Internal Medicine
DX: I87.333 Chronic venous hypertension (idiopathic) with ulcer and inflammation of bilateral lower extremity (principal); L97.829 Non-pressure chronic ulcer of other part of left lower leg with unspecified severity; L97.819 Non-pressure chronic ulcer of other part of right lower leg with unspecified severity
CPT/HCPCS: 99214; 99215; A9270; G0463

== ENCOUNTER 2024-09-09 11:49 | Outpatient (CLI) | payer MEDICARE, SELFPAY ==
[2024-09-09 12:40] LABS: Anion Gap 9 mmol/L (4-12); Blood Urea Nitrogen 21 mg/dL (7-17); Calcium 9.2 mg/dL (8.4-10.2); Carbon Dioxide 34 mmol/L (22-30); Chloride 84 mmol/L (98-107); Estimated Glomerular Filt Rate 37; Glucose 156 mg/dL (65-110); Potassium 3.1 mmol/L (3.4-5.0); Sodium 127 mmol/L (137-145)
== END 2024-09-09 11:50 | disposition home or self-care (01) ==
LOC: ANHLAB 11:54
PROVIDERS: PCP Nurse Practitioner; Visit Provider Internal Medicine Cardiovascular Disease
DX: I50.30 Unspecified diastolic (congestive) heart failure (principal)
CPT/HCPCS: 36415; 80048

== ENCOUNTER 2024-10-17 11:55 | Outpatient (CLI) | payer MEDICARE, SELFPAY ==
[2024-10-17 13:05] LABS: Albumin Level 3.1 g/dL (3.5-5.1); Anion Gap 4 mmol/L (4-12); Blood Urea Nitrogen 29 mg/dL (7-17); Calcium 8.6 mg/dL (8.4-10.2); Carbon Dioxide 30 mmol/L (22-30); Chloride 92 mmol/L (98-107); Estimated Glomerular Filt Rate 32; Glucose 81 mg/dL (65-110); Phosphorus 3.7 mg/dL (2.5-4.5); Potassium 3.1 mmol/L (3.4-5.0); Sodium 126 mmol/L (137-145)
[2024-10-17 13:08] LABS: Creatinine Urine 47.7 mg/dL; Total Protein Urine Random 12 mg/dL; Ur Ttl Prot Creatinine Ratio 0.25 mg/mg (0-0.20)
[2024-10-17 13:18] LABS: Parathyroid Intact 78.9 pg/mL (14.5-75.2)
[2024-10-17 13:23] LABS: Vitamin D 25 Hydroxy 69.9 ng/mL
== END 2024-10-17 11:56 | disposition home or self-care (01) ==
LOC: ANHLAB 11:56
PROVIDERS: PCP Nurse Practitioner; Visit Provider Internal Medicine Nephrology
DX: I12.9 Hypertensive chronic kidney disease with stage 1 through stage 4 chronic kidney disease, or unspecified chronic kidney disease (principal); N18.31 Chronic kidney disease, stage 3a; N25.81 Secondary hyperparathyroidism of renal origin; E55.9 Vitamin D deficiency, unspecified; E87.1 Hypo-osmolality and hyponatremia
CPT/HCPCS: 36415; 80069; 82306; 82570; 83970; 84156

== ENCOUNTER 2024-10-30 22:45 | Inpatient (IN) | payer MEDICARE, SELFPAY ==
--- NOTE | ~2024-10-30 | XR_ITS ---
Portable chest x-ray Comparison: 10/30/2024 Clinical History: Line placement Findings: Right subclavian line in place, tip probably in the right atrium. Probable minimal pulmona ry edema pattern. No pneumothorax. No pleural effusion. Cardiomediastinal silhouette is stable. Bone s and soft tissues are unremarkable. Impression: Right subclavian line in place, as above. Tip probably in the right atrium. Mild pulmonary edema. No pneumothorax. Reviewed, dictated and finalized at location M. RGY AND IMMUNOLOGY CHIEF Impression: Right subclavian line in place, as above. Tip probably in the right atrium. Mild pulmonary edema. No pneumothorax.
--- NOTE | ~2024-10-30 | CT_ITS ---
Clinical Indication: Abdominal distention, anasarca CT Scan of the Chest, Abdomen, and Pelvis without Contrast: Technique: Contiguous sections were acquired throughout the chest, abdomen, and pelvis without IV con trast administration. Dose reduction technique was used on this scan by utilizing automated exposure control and iterative reconstruction technique. The dose-length product (DLP) was 1555.14 mGy-cm. Findings: There is no evidence of any significant mediastinal, hilar or axillary lymphadenopathy. There are ath erosclerotic calcifications of the coronary arteries and aorta. There is minimal pericardial effusion with pericardial thickening and areas of pericardial calcification.. Small right pleural effusion present. There is minimal left pleural fluid. Focal groundglass opacity present in the posterior right upper lobe (axial image 38). There is a smal l focal groundglass opacity in the right lower lobe (axial image 73). Nodular contour of liver is compatible cirrhosis. Small calcified gallstones are present. The spleen, pancreas, adrenals and kidneys are within normal limits. There are atherosclerotic calcifications of the aorta. No lymphadenopathy. No bowel obstruction or bowel wall thickening. There is no evidence to suggest acute appendicitis. Urinary bladder is unremarkable. No pelvic mass evident. No ascites. Extensive soft tissue anasarca c hanges are present. There are multiple compression fractures in the spine, including L1, L2, L4, L5. Impression: Small right pleural effusion and minimal left pleural effusion. Small focal groundglass opacity right lung, as above, which could reflect focal pulmonary edema or fo christ pneumonitis. Cirrhotic liver. Cholelithiasis. Impression fractures of L1, L2, L4, and L5. Extensive soft tissue anasarca changes. Small pericardial effusion with pericardial thickening and calcification. Correlate for constrictive or restrictive pericarditis. Reviewed, dictated and finalized at [facility]. GER BAKERY Impression: Small right pleural effusion and minimal left pleural effusion. Small focal groundglass opacity right lung, as above, which could reflect focal pulmonary edema or focal pneumonitis. Cirrhotic liver. Cholelithiasis. Impression fractures of L1, L2, L4, and L5. Extensive soft tissue anasarca changes. Small pericardial effusion with pericardial thickening and calcification. Corre late for constrictive or restrictive pericarditis.
--- NOTE | ~2024-10-30 | XR_ITS ---
EXAMINATION: XR chest 1V portable DATE: 11/01/2024 05:40 INDICATION: Septic shock. TECHNIQUE: A single frontal view of the chest was obtained. COMPARISON: Chest single view 10/31/2024, chest CT 10/31/2024 FINDINGS: Anabell B-lines are noted, consistent with mild pulmonary edema. No pleural effusion or pneu mothorax. The heart size is normal. There is a right internal jugular central venous catheter with ti p in right atrium. IMPRESSION: 1. Mild pulmonary edema. Reviewed, dictated and finalized at location A. STMENT DIRECTOR IMPRESSION: 1. Mild pulmonary edema.
--- NOTE | ~2024-10-30 | CT_ITS ---
CT head without contrast Indication: Status post fall COMPARISON: 05/30/2021 Technique: Serial scans were obtained through the brain without the administration of contrast. Dose reduction technique was used on this scan by utilizing automated exposure control and iterative recon struction technique. The dose-length product (DLP) was 756.67 mGy-cm. Findings: There is no evidence of intracranial hemorrhage, mass lesion, or acute infarct. The ventri cles and subarachnoid spaces are dilated, consistent with mild atrophy. Low attenuation regions are seen within the periventricular white matter bilaterally, likely representing changes from chronic mi crovascular ischemic disease. There is no evidence of edema, mass effect or midline shift. The visu alized paranasal sinuses and mastoid air cells are clear. Impression: No intracranial hemorrhage, mass, or acute infarct. Atrophy and chronic white matter changes, as above. Reviewed, dictated and finalized at [facility]. D BANK CUSTODIAN Impression: No intracranial hemorrhage, mass, or acute infarct. Atrophy and chronic white matter changes, as above.
--- NOTE | ~2024-10-30 | XR_ITS ---
XR chest 1V portable 10/30/2024 23:23 Indication: Weakness and shortness of breath Procedure: AP portable chest Comparison: 10/20/2023 Findings: Moderate cardiomegaly. No focal air space disease, pulmonary edema, pleural effusion or kristen pected pneumothorax. Impression: 1: Cardiomegaly. 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
--- NOTE | ~2024-10-30 | CT_ITS ---
Noncontrast CT scan of the cervical spine Technique: Multiple contiguous axial [address] images of the cervical spine were obtained and rec onstructed in 2D sagittal and coronal planes on the acquisition scanner. Dose reduction technique was used on this scan by utilizing automated exposure control, adjustment of the mA and/or kV according to patient size. The dose-length product (DLP) was 295.78 mGy-cm. Clinical History: Pain Findings: No fractures or dislocations. There are mild scattered facet joint degenerative changes no definite billy canal stenosis or neural foraminal narrowing.. The intervertebral disc spaces are pre served. No prevertebral soft tissue swelling. Small right pleural effusion partially imaged. Impression: No fracture or subluxation of the cervical spine. Minimal degenerative change. Small right pleural effusion. Reviewed, dictated and finalized at [facility]. 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 Minimal degenerative change. Small right pleural effusion.
--- NOTE | ~2024-10-30 | US_ITS ---
US renal BI Ordering provider: Mary Jo Mckeon History: . Acute kidney injury rule out hydronephrosis . Comparison: None. Technique: Ultrasound bilateral kidneys. Findings: RIGHT KIDNEY: Measures 11.9x 5.7x 6.2 cm in length which is normal in size. No renal cysts. No renal mass or visualized echogenic stones. Otherwise, normal echotexture and contour. No hydronephrosis. No rmal renal cortical thickness. LEFT KIDNEY: Measures 9.8x 5.2x 5.5 cm in length which is normal in size. No renal cysts. No renal ma ss or visualized echogenic stones. Otherwise, normal echotexture and contour. No hydronephrosis. Norm al renal cortical thickness. BLADDER: Samuel's catheter is seen in the urinary bladder. IMPRESSION: No definite abnormality. Reviewed, dictated and finalized at location A. 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
[2024-10-30 22:45] VITALS: BP 98/67; PULSE 104; RESP 20; TEMP 36.9; O2SAT 100
[2024-10-30 22:58] LABS: Glucose Point of Care 64 mg/dl (65-105)
--- NOTE | 2024-10-30 23:00 | ECG_ITS ---
Test Date: 2024-10-30 23:06:26 Measurements Intervals [place] Rate: 97 P: 30 SD: 189 QRS: 93 QRSD: 81 T: -71 QT: 348 QTc: 442 Interpretive Statements SINUS RHYTHM baseline artifact affects interpretation BORDERLINE RIGHT AXIS DEVIATION [QRS AXIS > 90] LOW QRS VOLTAGE [QRS DEFLECTION < 0.5/1.0 mV IN LIMB/CHEST LEADS] ABNORMAL QRS-T ANGLE [QRS-T AXIS DIFFERENCE > 60] No previous ECG available for comparison Electronically Signed On 10-31-2024 09:21:28 BRAIN WAVE TECHNICIAN by Jc Schaffer M.D.
[2024-10-30 23:23] VITALS: O2SAT 98
[2024-10-30 23:35] LABS: Basophils Absolute Auto 0.1 K/mm3 (0.0-0.1); Basophils Percent Auto 0.2 % (0.2-1.2); Eosinophils Absolute Auto 0.2 K/mm3 (0-0.3); Eosinophils Percent Auto 0.8 % (0-4.4); Hematocrit 29.4 % (37.0-47.0); Hemoglobin 9.7 g/dL (12.0-15.0); Immature Granulocyte Absolute 0.14 K/mm3 (0.00-0.031); Immature Granulocyte Percent A 0.5 % (0-0.5); Lymphocytes Absolute Auto 0.64 K/mm3 (0.9-3.2); Lymphocytes Percent Auto 2.1 % (18.3-44.2); Mean Corpuscular Hemoglobin 32.3 pg (26-34); Mean Platelet Volume 9.7 fl (7.4-10.4); Monocytes Percent Auto 3.3 % (2.6-8.5); Neutrophils Absolute Auto 28.5 K/mm3 (1.3-6.7); Neutrophils Percent Auto 93.1 % (45.5-73.1); Platelet Count Result 152 k/mm3 (150-375); Red Cell Distribution Width 13.9 % (11.5-14.5); White Blood Count 30.6 K/mm3 (4.5-10.0)
[2024-10-30 23:36] LABS: Lactic Acid Reflex 2.4 mmol/L (0.7-2.0)
[2024-10-30 23:42] LABS: Alveolar/Arterial O2 Gradient 35.7 mmHg; Fractional Inspired Oxygen 21 %; HCO3 ABG 18.5 mEq/l (22.0-26.0); Oxygen Content ABG 14.1 %vol (16.0-22.0); Oxyhemoglobin 95.9 % THb (90.0-100.0); PCO2 ABG 25.9 mmHg (35.0-45.0); PO2 FiO2 Ratio Arterial Blood 3.95 %; Total Hemoglobin 10.4 g/dL (12.0-18.0); pH ABG 7.471 (7.350-7.450)
[2024-10-30 23:43] VITALS: BP 88/52; PULSE 93; RESP 18; O2SAT 100
[2024-10-30 23:44] LABS: Alanine Aminotransferase 27 U/L (6-35); Alkaline Phosphatase 342 U/L (38-126); Anion Gap 9 mmol/L (4-12); Aspartate Amino Transferase 50 U/L (14-36); Bilirubin,Total 1.9 mg/dL (0.2-1.3); Blood Urea Nitrogen 43 mg/dL (7-17); Calcium 8.7 mg/dL (8.4-10.2); Carbon Dioxide 22 mmol/L (22-30); Chloride 95 mmol/L (98-107); Estimated CRCL calculation 24 ml/min; Estimated Glomerular Filt Rate 22; Glucose 60 mg/dL (65-110); Lipase 23 U/L (23-300); Magnesium 2.1 mg/dL (1.6-2.3); Phosphorus 4.8 mg/dL (2.5-4.5); Sodium 126 mmol/L (137-145)
[2024-10-30 23:44] LABS: Device ROOM AIR; Modified Allen's Test Pass; Site Drawn LEFT RADIAL
[2024-10-30 23:49] LABS: Troponin I < 0.012 ng/mL (0.000-0.034)
[2024-10-30 23:50] LABS: INR 1.3; Prothrombin Time 16.8 Seconds (11.1-14.7)
[2024-10-30 23:51] LABS: Partial Thromboplastin Time 34.4 Seconds (22.3-36.8)
[2024-10-31] VITALS (44 sets, daily range): BP systolic 88–130; BP diastolic 46–64; PULSE 88–105; RESP 14–24; TEMP 36.3–37.7; O2SAT 93–100; BMI 32.8
--- NOTE | 2024-10-31 | ECHO_ITS ---
Patient Info Name: Lou Islas Age: 69 years : 1955 Gender: Female Ht: 65 in Wt: 197 lbs BSA: 2.06 m2 Exam Date: 10/31/2024 9:31 AM Exam Location: Echo Lab Patient Status: Inpatient Admit Date: 10/31/2024 Staff Ordering Physician: Mary Jo Mckeon MD Attending Provider: Tanya Sequeira MD Referring Physician: Mike LUDWIG; Exam Type: CA echo dop color flow w con Summary 1. There is normal biventricular systolic function. 2. There is no significant valvular disease. 3. The right ventricle is mildly dilated. Left Ventricle The left ventricle is normal in size and systolic function. The left ventricular ejection fraction is visually estimated to be 60-65%. Grade II diastolic dysfunction of the left ventricle (pseudonormal filling pattern). Right Ventricle The right ventricle is mildly dilated with preserved systolic function. Left Atria The left atrium is moderately dilated. Right Atria The right atrium is normal size. Atrial Septum The atrial septum is not well visualized. Aortic Valve The aortic valve is probably trileaflet and opens well. There is no aortic regurgitation. Pulmonic Valve The pulmonic valve is not well visualized. There is no color Doppler evidence of significant pulmonic valve regurgitation. Mitral Valve The mitral valve is normal. There is no significant mitral regurgitation. Tricuspid Valve The tricuspid valve is normal. There is trace tricuspid regurgitation. Pericardium/Pleural There is no pericardial effusion views. Inferior Vena Cava Inferior vena cava is not well visualized. Aorta The aortic root at the level of the sinus of Valsalva measures 2.2 cm in diameter. Left Ventricular Outflow Tract Name Value Normal LVOT 2D LVOT Diameter 1.60 cm LVOT Doppler LVOT Peak Gradient 3 mmHg LVOT Mean Gradient 2 mmHg LVOT VTI 20.22 cm LVOT VTI/AV VTI Ratio 0.75 LVOT Stroke Volume 40.83 ml LVOT CO 3.23 l/min LVOT CI 1.57 L/min/m2 Pulmonic Valve Name Value Normal RVOT Doppler RVOT Peak Gradient 4 mmHg PV Doppler PV Peak Gradient 4 mmHg Mitral Valve Name Value Normal MV Doppler MV Decel Eddy 935.18 cm/s2 MV PHT 0 s MV Area (PHT) 5.08 cm2 4.00-5.00 MV Diastolic Function MV E Peak Velocity 139.76 cm/s MV A Peak Velocity 53.64 cm/s MV E/A 2.61 MV Decel Time 0 s MV Annular TDI MV E/e' (Septal) 23.43 <=8.00 MV E/e' (Lateral) 19.86 <=8.00 MV E/e' (Average) 21.65 Tricuspid Valve Name Value Normal TV Regurgitation Doppler TR Peak Velocity 262.94 cm/s TR Peak Gradient 28 mmHg Aorta Name Value Normal Ascending Aorta Ao Root Diameter (MM) 3.12 cm Ao Root Diam Index (MM) 1.52 cm/m2 Aortic Valve Name Value Normal AV Doppler AV Peak Velocity 144.19 cm/s AV Peak Gradient 6 mmHg AV Mean Gradient 3 mmHg AV VTI 27.05 cm AV Area (Cont Eq VTI) 1.51 cm2 >=3.00 AV Area (Cont Eq Julio) 1.35 cm2 AV Regurgitation 2D LVOT Area 2.02 cm2 Ventricles Name Value Normal LV Dimensions 2D/MM IVS Diastolic Thickness (2D) 0.83 cm 0.60-1.00 LVID Diastole (2D) 4.84 cm 3.80-5.20 LVIW Diastolic Thickness (2D) 1.28 cm 0.60-0.90 LVID Systole (2D) 2.85 cm 2.20-3.50 LVOT Diameter 1.60 cm LV Mass (2D Cubed) 186.17 g 67.00-162.00 LV Mass Index (2D Cubed) 0.01 g/cm2 0.00-0.01 Relative Wall Thickness (2D) 0.53 LV Fractional Shortening/Ejection Fraction 2D/MM LV Fractional Shortening (2D) 33 % 27-45 LV EF (2D Teichdenaz) 61 % 54-74 LV Diastolic Volume (4C MOD) 86.26 ml LV EF (4C MOD) 73 % LV Diastolic Volume (2C MOD) 75.24 ml LV EF (2C MOD) 64 % LV Diastolic Volume (BP MOD) 82.21 ml 46.00-106.00 LV Diastolic Volume Index (BP MOD) 0.04 l/m2 0.03-0.06 LV Systolic Volume (BP MOD) 25.64 ml 14.00-42.00 LV Systolic Volume Index (BP MOD) 0.01 l/m2 0.01-0.02 LV EF (BP MOD) 69 % 54-74 LV Diastolic Length (4C) 7.87 cm LV Systolic Length (4C) 6.33 cm LV Stroke Volume (4C MOD) 62.55 ml Atria Name Value Normal LA Dimensions LA Dimension (MM) 4.75 cm 2.70-3.80 LA Volume (4C A-L) 88.85 ml LA Volume (BP A-L) 82.57 ml RA Dimensions RA Area (4C) 15.65 cm2 <=18.00 Report Signatures
[2024-10-31 00:11] LABS: Ethanol < 10 mg/dL (<10); Influenza A QL RT-PCR Negative (Negative); Influenza B QL RT-PCR Negative (Negative); RSV RNA, RT-PCR Negative (Negative); SARS-CoV-2 RNA PCR Negative (Negative)
[2024-10-31 00:27] LABS: NT Pro B Type Natriuretic Pept 12800 pg/mL (19.9-100)
[2024-10-31] MEDS: DEXTROSE 10% 250 ML IV CONT (00:37)
[2024-10-31] MEDS: PIPERACILLN/TAZ 3.375GM/NS50ML 3.375 GM/50 ML BAG IVPB (00:52)
[2024-10-31 00:55] LABS: Glucose Point of Care 151 mg/dl (65-105)
[2024-10-31] MEDS: VANCOMYCIN 1,500 MG/NS 500 ML 1,500 MG/500 ML BAG 250 MG IVPB (01:09)
[2024-10-31] MEDS: HYDROmorphone HCL INJ (*CRX) 1 MG/ML SYR 0.5 MG IV PUSH (02:13)
[2024-10-31 02:24] LABS: Reflex Lactic Acid Yes or No Add Lactic
--- NOTE | 2024-10-31 02:37 | ED.GENADULT ---
HPI - General Adult General Chief complaint: Weakness Stated complaint: GEN WKNS, GLF, BILATERAL LEG EDEMA Time Seen by Provider: 10/30/24 22:54 History of Present Illness HPI narrative: This is a 69-year-old female with a history of diastolic heart failure and liver cirrhosis secondary to alcohol abuse presenting for weakness. Patient says over last 2 days she has become progressively more weak. Today she slid out of a wheelchair and was unable to get off the ground called an ambulance. She has noticed that she has had increased swelling of her legs and has progressed all the way up to her abdomen. She has a shingles rash on the right side of her belly. She also has chronic ulcerations lymphedema of her lower extremities. She has not had any fevers chills chest pain difficulty breathing abdominal pain or URI symptoms. Patient says she has been taking her diuretics as instructed. Related Data Home Medications ?Medication ?Instructions ?Recorded ?Confirmed ?Last Taken ?Type omeprazole magnesium 20 mg 20 mg PO DAILY 02/09/20 08/29/24 10/19/23 History tablet,delayed release (Prilosec OTC) fluticasone propionate 50 1 spray intranasal DAILY PRN 08/16/20 08/29/24 08/16/20 History mcg/actuation nasal allergies spray,suspension mecobalamin (vitamin B12) 1,000 3,000 mcg PO DAILY 05/13/21 08/29/24 10/19/23 History mcg chewable tablet pyridoxine (vitamin B6) 100 mg 100 mg PO DAILY 05/13/21 08/29/24 10/19/23 History tablet ferrous sulfate 325 mg (65 mg 325 mg PO DAILY 06/06/21 08/29/24 10/19/23 History iron) tablet magnesium oxide 400 mg (241.3 mg 250 mg PO QAM 06/06/21 08/29/24 10/19/23 History magnesium) tablet cetirizine 10 mg tablet (Zyrtec) 10 mg PO DAILY PRN allergies 10/30/23 08/29/24 Unknown History ascorbate calcium (vitamin C) 500 500 mg PO DAILY 06/20/24 08/29/24 Unknown History mg tablet ascorbic acid (vitamin C) 500 mg 500 mg PO DAILY 06/20/24 08/29/24 Unknown History capsule aspirin 81 mg tablet,delayed 81 mg PO DAILY 06/20/24 08/29/24 Unknown History release bumetanide 1 mg tablet 0.5 mg PO BID 06/20/24 08/29/24 Unknown History folic acid 800 mcg tablet 0.8 mg PO DAILY 06/20/24 08/29/24 Unknown History zinc acetate 50 mg (zinc) capsule 50 mg PO DAILY 06/20/24 08/29/24 Unknown History (Galzin) clobetasol 0.05 % topical cream 1 applic topical BID 08/06/24 08/29/24 Unknown History tacrolimus 0.03 % topical ointment 1 applic topical BID 08/06/24 08/29/24 Unknown History Allergies Allergy/AdvReac Type Severity Reaction Status Date / Time codeine AdvReac Unknown Headache Verified 10/22/24 07:34 [facility] Past Medical History Medical History Renal insufficiency Osteoarthritis ANTHONY (obstructive sleep apnea) Carotid artery disease Alcoholic cirrhosis of liver Diastolic dysfunction Echocardiogram on 10/20/2023 showed normal left ventricular systolic function with an estimated EF of 60 to 65% as well as abnormal diastolic dysfunction. Left-sided carotid artery disease Carotid Doppler ultrasound on 01/14/2021 showed 50 to 69% stenosis in the left internal carotid artery. Chronic anemia Orthostatic hypotension An ongoing issue for the patient. She has had several syncopal episodes over the years leading to falls and fractures. Alcohol abuse Insulin dependent type 2 diabetes mellitus Hemoglobin A1c was 4.8 % on 07/17/2023. Gastroesophageal reflux disease Hypertension Chronic hyponatremia Eczema Periprosthetic fracture of femur following total replacement of hip (01/2020) Non operative treatment. GERD (gastroesophageal reflux disease) Surgical History Surgical History Status post open reduction with internal fixation of fracture (05/30/21) ORIF of comminuted intra-articular fracture of the distal left femur, done at [facility]. History of hysterectomy (2005) Due to uterine fibroids and endometriosis. History of bilateral cataract extraction History of lumbar surgery (2005) L1-L3. History of right hip replacement (2005) Per Dr. Curiel in [place]. Family History Family History Father Heart attack Mother Diabetes mellitus COPD (chronic obstructive pulmonary disease) Hypertension Afib Sibling Amputation above knee Diabetes mellitus Father , At age 50 Acute myocardial infarction Sibling , At age 50 Pancreatic cancer Social History Social History Social History: The patient lives in her own home in [place]. She has been twice, her 1st and she has since her 2nd . She has no children. She moved to this area within the last couple of years from [place] to be close to her 3 remaining siblings. She worked from home for a [employer] doing [employer] and she has a master's degree in statistics. She has recently retired.She smoked up to 2 packs of cigarettes a day before quitting in 2005. She drinks 2 mixed drinks a day, each containing a shot of vodka which equals out to about 1 L to 1.7 L of vodka a week. She denies illicit substance use. Surrogate decision maker: Miladys Jensen, sister. Code status: Full code. Smoking packs per day: 2 Smoking cigarettes per day: 40.0 Years smoked: 30 Smoking pack-years: 60.00 Smoking status: Former smoker Tobacco type: cigarettes Smokeless tobacco user: chewing tobacco Second hand tobacco smoke exposure: Yes Alcohol intake: current Drinks per week: 14 Do You Feel Safe in your Home?: Yes Lack of Transportation: No Lack of Food: Never True Current Housing: I Have Housing Concerned About Future Housing: No Difficulty Paying Gas/Electric Bills: No Difficulty Paying for Meds: No Currently Unemployed: No Education: Master's Degree or Higher Difficulty w/ Childcare or Family Care: No Living arrangements: alone Occupation/Education: retired Gender identity (if verbalized by the patient): Female Sexual Orientation (if Verbalized by the Patient): Straight or Heterosexual Spiritual care concerns: No Exam Narrative: APPEARANCE: No apparent distress. Head: atraumatic. EYES: EOMI, NOSE: Atraumatic NECK: Trachea midline RESPIRATORY: No increased rate of breathing, saturating well on room air clear to auscultation CARDIOVASCULAR: RRR, diffuse edema of the thighs and abdomen ABDOMINAL: Distended tense, shingles rash in the right side of the abdomen MUSCULOSKELETAl: No obvious deformities NEURO: Alert. Moving 4/4 extremities SKIN:: Shingles rash over the right side of the abdomen, chronic lipodermatosclerosis lower extremities with skin cracking and erythema/warmth PSYCHIATRIC: Normal affect Course Vital Signs Vital signs: Vital Signs Temperature 98.5 F 10/30/24 22:45 Pulse Rate 104 H 10/30/24 22:45 Respiratory Rate 20 10/30/24 22:45 Blood Pressure 98/67 L 10/30/24 22:45 Pulse Oximetry 100 10/30/24 22:45 Oxygen Delivery Room Air 10/30/24 22:45 Temperature 98.5 F 10/30/24 22:45 Pulse Rate 94 10/31/24 01:32 Respiratory Rate 16 10/31/24 01:32 Blood Pressure 91/50 L 10/31/24 01:32 Pulse Oximetry 99 10/31/24 01:32 Oxygen Delivery Room Air 10/30/24 23:23 Procedures Central Line Placement Right SC: Central Line Date: 10/31/24 Discussed w/ the patient/family/POA,the placement of a central venous catheter, including its clinical necessity/indication & associated potential risks, benifits and alternatives.: Yes The patient/family/POA understand(s) and acknowledge(s) the need to proceed with central venous catheter insertion as an important element of the patient's clinical management.: Yes Time Out Performed: Yes Patient Placed on Monitor/Pulse Ox: Yes Max. Sterile Barrier Technique: Caps, large sterile sheet and hand hygiene Central Line Prep: 2% chlorhexidine scrub and sterile drapes applied Technique: US-Guided Ultrasound Used for Placement: No Central Line Lumen Inserted: triple Post Procedure: sutured in place, good blood return, all ports aspirated, flushed, capped and sterile dressing applied Post Procedure X-Ray: tip of catheter in good position and no pneumothorax seen Patient Tolerated Procedure: well Complications: none Medical Decision Making MDM Narrative Medical decision making narrative: -Course: 69-year-old female presenting with weakness. On initial presentation she was hypotensive at 80/50. She is saturating well on RA with no respiratory complaints. Blood sugar was 63 and she was given D10 @250 mL Her physical exam showed diffuse edema of her thighs and abdomen. She has erythema/cracking over her lower extremities which appears more chronic. She also has a shingles rash over the right side of her abdomen. While patient has anasarca she appears to be intravascularly depleted. She has been given albumin infusion with Bumex. Central line placed for levo to improve BP. Started on broad-spectrum antibiotics while completing her workup. Started on acyclovir with renally adjusted dose. Workup significant for a white count 30. Initial lactic 2.4 which cleared to 1.3. Patient hyponatremic and hypochloremic which is chronic. Patient has acute kidney injury with creatinine of 2.2 from a baseline of approximately 1.1. Troponins undetectable. BNP and 13,000 but no respiratory complaints or oxygen requirements. More likely related to liver cirrhosis than congestive heart failure. urine not indicative infection. Viral swabs negative. Case was discussed Dr. Sequeira and Dr. Mckeon. Patient will be placed in the intensive care unit. Goals of care discussed with the patient. She is DNR DNI but medical management is ok. Vital Signs Vital Signs: Vital Signs Temperature 98.5 F 10/30/24 22:45 Pulse Rate 104 H 10/30/24 22:45 Respiratory Rate 20 10/30/24 22:45 Blood Pressure 98/67 L 10/30/24 22:45 Pulse Oximetry 100 10/30/24 22:45 Oxygen Delivery Room Air 10/30/24 22:45 Temperature 98.5 F 10/30/24 22:45 Pulse Rate 94 10/31/24 01:32 Respiratory Rate 16 10/31/24 01:32 Blood Pressure 91/50 L 10/31/24 01:32 Pulse Oximetry 99 10/31/24 01:32 Oxygen Delivery Room Air 10/30/24 23:23 Lab Data 10/30/24 23:17 10/30/24 23:17 Labs: Lab Results 10/30/24 10/30/24 10/30/24 Range/Units 22:55 23:17 23:30 WBC 30.6 H (4.5-10.0) K/mm3 RBC 3.00 L (4.2-5.4) M/mm3 Hgb 9.7 L (12.0-15.0) g/dL Hct 29.4 L (37.0-47.0) % MCV 98.0 (80-100) fl MCH 32.3 (26-34) pg MCHC 33.0 (32-36) g/dl RDW 13.9 (11.5-14.5) % Plt Count 152 (150-375) k/mm3 MPV 9.7 (7.4-10.4) fl Immature Gran % (Auto) 0.5 (0-0.5) % Neut % (Auto) 93.1 H (45.5-73.1) % Lymph % (Auto) 2.1 L (18.3-44.2) % [place] % (Auto) 3.3 (2.6-8.5) % Eos % (Auto) 0.8 (0-4.4) % Baso % (Auto) 0.2 (0.2-1.2) % Lymph # (Auto) 0.64 L (0.9-3.2) K/mm3 [place] # (Auto) 1.0 H (0.1-0.6) K/mm3 Eos # (Auto) 0.2 (0-0.3) K/mm3 Baso # (Auto) 0.1 (0.0-0.1) K/mm3 Abs Immat Gran (auto) 0.14 H (0.00-0.031) K/mm3 Absolute Neuts (auto) 28.5 H (1.3-6.7) K/mm3 Absolute Nucleated RBC 0.000 (0.0-0.012) K/mm3 Nucleated RBC % 0.0 (0.0-0.2) % PT 16.8 H (11.1-14.7) Seconds INR 1.3 APTT 34.4 (22.3-36.8) Seconds Sodium 126 L (137-145) mmol/L Potassium 5.0 (3.4-5.0) mmol/L Chloride 95 L (98-107) mmol/L Carbon Dioxide 22 (22-30) mmol/L Anion Gap 9 (4-12) mmol/L BUN 43 H D (7-17) mg/dL Creatinine 2.23 H (0.7-1.0) mg/dL Estim Creat Clear Calc 24 ml/min Estimated GFR 22 L (59 - ) Glucose 60 L (65-110) mg/dL POC Capillary Glucose 64 L (65-105) mg/dl Lactic Acid 2.4 H (0.7-2.0) mmol/L Calcium 8.7 (8.4-10.2) mg/dL Phosphorus 4.8 H (2.5-4.5) mg/dL Magnesium 2.1 (1.6-2.3) mg/dL Total Bilirubin 1.9 H (0.2-1.3) mg/dL AST 50 H (14-36) U/L ALT 27 (6-35) U/L Alkaline Phosphatase 342 H (38-126) U/L Troponin I < 0.012 (0.000-0.034) ng/mL NT-Pro-B Natriuret Pep 54771 H (19.9-100) pg/mL Total Protein 6.0 L (6.3-8.2) g/dL Albumin 3.0 L (3.5-5.1) g/dL Lipase 23 (23-300) U/L TSH (Reflex) 2.700 (0.465-4.68) uIU/mL Urine Color Urine Appearance Urine pH Ur Specific [place] Urine Protein Urine Glucose (UA) Urine Ketones Ur Blood (Man) Urine Nitrate Urine Bilirubin Urine Urobilinogen Leukocyte Esterase Rfl Urine Opiates Screen Urine Methadone Screen Ur Barbiturates Screen Ur Phencyclidine Scrn Ur Amphetamine Screen U Benzodiazepines Scrn Urine Cocaine Screen U Cannabinoids Screen Ethyl Alcohol < 10 (<10) mg/dL Influenza A (RT-PCR) Negative (Negative) Influenza B (RT-PCR) Negative (Negative) RSV (RT-PCR) Negative (Negative) SARS-CoV-2 RNA (RT-PCR) Negative (Negative) Blood Type O Positive Antibody Screen Negative 10/31/24 10/31/24 10/31/24 Range/Units 00:49 02:16 02:25 WBC (4.5-10.0) K/mm3 RBC (4.2-5.4) M/mm3 Hgb (12.0-15.0) g/dL Hct (37.0-47.0) % MCV (80-100) fl MCH (26-34) pg MCHC (32-36) g/dl RDW (11.5-14.5) % Plt Count (150-375) k/mm3 MPV (7.4-10.4) fl Immature Gran % (Auto) (0-0.5) % Neut % (Auto) (45.5-73.1) % Lymph % (Auto) (18.3-44.2) % [place] % (Auto) (2.6-8.5) % Eos % (Auto) (0-4.4) % Baso % (Auto) (0.2-1.2) % Lymph # (Auto) (0.9-3.2) K/mm3 [place] # (Auto) (0.1-0.6) K/mm3 Eos # (Auto) (0-0.3) K/mm3 Baso # (Auto) (0.0-0.1) K/mm3 Abs Immat Gran (auto) (0.00-0.031) K/mm3 Absolute Neuts (auto) (1.3-6.7) K/mm3 Absolute Nucleated RBC (0.0-0.012) K/mm3 Nucleated RBC % (0.0-0.2) % PT (11.1-14.7) Seconds INR APTT (22.3-36.8) Seconds Sodium (137-145) mmol/L Potassium (3.4-5.0) mmol/L Chloride (98-107) mmol/L Carbon Dioxide (22-30) mmol/L Anion Gap (4-12) mmol/L BUN (7-17) mg/dL Creatinine (0.7-1.0) mg/dL Estim Creat Clear Calc ml/min Estimated GFR (59 - ) Glucose (65-110) mg/dL POC Capillary Glucose 151 H (65-105) mg/dl Lactic Acid (0.7-2.0) mmol/L Calcium (8.4-10.2) mg/dL Phosphorus (2.5-4.5) mg/dL Magnesium (1.6-2.3) mg/dL Total Bilirubin (0.2-1.3) mg/dL AST (14-36) U/L ALT (6-35) U/L Alkaline Phosphatase (38-126) U/L Troponin I Pending (0.000-0.034) ng/mL NT-Pro-B Natriuret Pep (19.9-100) pg/mL Total Protein (6.3-8.2) g/dL Albumin (3.5-5.1) g/dL Lipase (23-300) U/L TSH (Reflex) (0.465-4.68) uIU/mL Urine Color Pending Urine Appearance Pending Urine pH Pending Ur Specific [place] Pending Urine Protein Pending Urine Glucose (UA) Pending Urine Ketones Pending Ur Blood (Man) Pending Urine Nitrate Pending Urine Bilirubin Pending Urine Urobilinogen Pending Leukocyte Esterase Rfl Pending Urine Opiates Screen Pending Urine Methadone Screen Pending Ur Barbiturates Screen Pending Ur Phencyclidine Scrn Pending Ur Amphetamine Screen Pending U Benzodiazepines Scrn Pending Urine Cocaine Screen Pending U Cannabinoids Screen Pending Ethyl Alcohol (<10) mg/dL Influenza A (RT-PCR) (Negative) Influenza B (RT-PCR) (Negative) RSV (RT-PCR) (Negative) SARS-CoV-2 RNA (RT-PCR) (Negative) Blood Type Antibody Screen 10/31/24 Range/Units 02:30 WBC (4.5-10.0) K/mm3 RBC (4.2-5.4) M/mm3 Hgb (12.0-15.0) g/dL Hct (37.0-47.0) % MCV (80-100) fl MCH (26-34) pg MCHC (32-36) g/dl RDW (11.5-14.5) % Plt Count (150-375) k/mm3 MPV (7.4-10.4) fl Immature Gran % (Auto) (0-0.5) % Neut % (Auto) (45.5-73.1) % Lymph % (Auto) (18.3-44.2) % [place] % (Auto) (2.6-8.5) % Eos % (Auto) (0-4.4) % Baso % (Auto) (0.2-1.2) % Lymph # (Auto) (0.9-3.2) K/mm3 [place] # (Auto) (0.1-0.6) K/mm3 Eos # (Auto) (0-0.3) K/mm3 Baso # (Auto) (0.0-0.1) K/mm3 Abs Immat Gran (auto) (0.00-0.031) K/mm3 Absolute Neuts (auto) (1.3-6.7) K/mm3 Absolute Nucleated RBC (0.0-0.012) K/mm3 Nucleated RBC % (0.0-0.2) % PT (11.1-14.7) Seconds INR APTT (22.3-36.8) Seconds Sodium (137-145) mmol/L Potassium (3.4-5.0) mmol/L Chloride (98-107) mmol/L Carbon Dioxide (22-30) mmol/L Anion Gap (4-12) mmol/L BUN (7-17) mg/dL Creatinine (0.7-1.0) mg/dL Estim Creat Clear Calc ml/min Estimated GFR (59 - ) Glucose (65-110) mg/dL POC Capillary Glucose (65-105) mg/dl Lactic Acid Pending (0.7-2.0) mmol/L Calcium (8.4-10.2) mg/dL Phosphorus (2.5-4.5) mg/dL Magnesium (1.6-2.3) mg/dL Total Bilirubin (0.2-1.3) mg/dL AST (14-36) U/L ALT (6-35) U/L Alkaline Phosphatase (38-126) U/L Troponin I (0.000-0.034) ng/mL NT-Pro-B Natriuret Pep (19.9-100) pg/mL Total Protein (6.3-8.2) g/dL Albumin (3.5-5.1) g/dL Lipase (23-300) U/L TSH (Reflex) (0.465-4.68) uIU/mL Urine Color Urine Appearance Urine pH Ur Specific [place] Urine Protein Urine Glucose (UA) Urine Ketones Ur Blood (Man) Urine Nitrate Urine Bilirubin Urine Urobilinogen Leukocyte Esterase Rfl Urine Opiates Screen Urine Methadone Screen Ur Barbiturates Screen Ur Phencyclidine Scrn Ur Amphetamine Screen U Benzodiazepines Scrn Urine Cocaine Screen U Cannabinoids Screen Ethyl Alcohol (<10) mg/dL Influenza A (RT-PCR) (Negative) Influenza B (RT-PCR) (Negative) RSV (RT-PCR) (Negative) SARS-CoV-2 RNA (RT-PCR) (Negative) Blood Type Antibody Screen ABG Data ABG results: 10/30/24 23:13 Puncture Site Left radial ABG pH 7.471 H ABG pCO2 25.9 L ABG pO2 83.0 ABG PO2/FiO2 Ratio 3.95 ABG HCO3 18.5 L ABG O2 Saturation 97.0 ABG O2 Content 14.1 L ABG Base Excess -4.0 A-a Gradient 35.7 Oxyhemoglobin 95.9 Total Hemoglobin 10.4 L O2 Delivery Device Room air O2 Liters/Min Not Reportable FiO2 21 Critical Care Time Critical Care Time Critical Care Time: Yes Total Critical Care Time: 60 Discharge Plan Discharge Clinical Impression: Sepsis, Anasarca, Shingles, Dermatitis, Acute hypotension Patient Disposition: Still a Patient Condition: Critical Patient Language: Tamaz[place] Prescriptions: No Action bumetanide 1 mg tablet 0.5 mg PO BID pyridoxine (vitamin B6) 100 mg tablet 100 mg PO DAILY mecobalamin (vitamin B12) 1,000 mcg tablet,chewable 3,000 mcg PO DAILY aspirin 81 mg tablet,delayed release (DR/EC) 81 mg PO DAILY Galzin 50 mg (zinc) capsule 50 mg PO DAILY ascorbate calcium (vitamin C) 500 mg tablet 500 mg PO DAILY folic acid 800 mcg tablet 0.8 mg PO DAILY ascorbic acid (vitamin C) 500 mg capsule 500 mg PO DAILY fluticasone propionate 50 mcg/actuation [place],Suspension 1 spray INTRANASAL DAILY PRN (Reason: allergies) thiamine HCl (vitamin B1) [Vitamin B-1] 100 mg Tablet 100 mg PO QAM Qty: 30 0RF ferrous sulfate 325 mg (65 mg iron) Tablet 325 mg PO DAILY magnesium oxide 400 mg (241.3 mg magnesium) tablet 250 mg PO QAM spironolactone 25 mg Tablet 25 mg PO QAM Qty: 30 0RF Jardiance 10 mg Tablet 10 mg PO DAILY Qty: 30 0RF omeprazole magnesium [Prilosec OTC] 20 mg Tablet,Delayed Release (Dr/Ec) 20 mg PO DAILY Multiple Vitamin, Womens Tablet 1 tablet PO DAILY Qty: 30 0RF clobetasol 0.05 % Cream 1 applic TOPICAL BID tacrolimus 0.03 % Ointment 1 applic TOPICAL BID (DME) blood sugar diagnostic Strip See Rx Instructions .ROUTE .MEDSUPPLY Qty: 360 1RF Rx Instructions: use to test 4 times a day cetirizine [Zyrtec] 10 mg tablet 10 mg PO DAILY PRN (Reason: allergies) alendronate 70 mg tablet 70 mg PO WEEKLY Qty: 12 3RF Rx Instructions: MONDAY insulin lispro [Humalog KwikPen Insulin] 100 unit/mL insulin pen 3 unit SUB-Q TID Qty: 9 4RF Rx Instructions: before each meal atorvastatin 10 mg tablet 10 mg PO QAM Qty: 90 1RF Rx Instructions: TAKE 1 TABLET BY MOUTH DAILY labetalol 100 mg tablet 100 mg PO BID Qty: 60 5RF calcitriol 0.25 mcg capsule 0.25 mcg PO 4XW Qty: 16 6RF Rx Instructions: administer on Mondays, Wednesdays, Fridays, and Monday (DME) pen needle, diabetic [BD Muriel 2nd Gen Pen Needle] 32 gauge x 5/32 needle See Rx Instructions .ROUTE .MEDSUPPLY Qty: 360 1RF Rx Instructions: Use to inject insulin up to 4 times daily (DME) Dexcom G7 Sensor Device See Rx Instructions .Route Qty: 3 5RF Rx Instructions: As directed potassium chloride 10 mEq capsule, extended release 10 meq PO DAILY Qty: 90 1RF sodium chloride 1,000 mg tablet,soluble See Rx Instructions .ROUTE .COMPLEX Qty: 90 3RF Dose Instruction: TAKE 1 TABLET BY MOUTH DAILY Rx Instructions: TAKE 1 TABLET BY MOUTH DAILY insulin glargine [Lantus Solostar U-100 Insulin] 100 unit/mL (3 mL) insulin pen See Rx Instructions .ROUTE .COMPLEX Qty: 15 1RF Dose Instruction: ADMINISTER 15 UNITS UNDER THE SKIN EVERY DAY AT BEDTIME Rx Instructions: ADMINISTER 15 UNITS UNDER THE SKIN EVERY DAY AT BEDTIME valacyclovir 1 gram tablet 1,000 mg PO Q8H Qty: 24 0RF acyclovir [Zovirax] 5 % cream 1 applic topical DAILY Qty: 5 0RF Follow-up/Referrals: Ghanshyam Ruiz APRN [Primary Care Provider] -
[2024-10-31 02:45] LABS: Lactic Acid 1.3 mmol/L (0.7-2.0)
[2024-10-31 02:48] LABS: Amphetamine Screen Urine Negative (Negative); Barbiturate Screen Urine Negative (Negative); Benzodiazepines Screen Urine Negative (Negative); Cannabinoid Screen Urine Negative (Negative); Cocaine Screen Urine Negative (Negative); Methadone Screen Urine Negative (Negative); Opiate Screen Urine Negative (Negative); Phencyclidine Screen Urine Negative (Negative)
[2024-10-31] MEDS: BUMETANIDE INJ 1 MG/4 ML VIAL IV PUSH (02:50)
[2024-10-31 02:55] LABS: Add Urine Microscopic? YES; Appearance Urine Cloudy (Clear); Bacteria Urine 2+ /hpf; Bilirubin Urine Negative (Negative); Blood Urine Non-Hemolyzed Trace (Negative); Budding Yeast Urine Present /hpf; Color Urine Dark Yellow (Yellow); Glucose Urine UA Trace mg/dL (Negative); Hyaline Casts Urine Present /lpf; Ketones Urine Trace mg/dL (Negative); Leukocyte Esterase Ur 1+ LEU/UL (Negative); Need Manual Microscopic Reviewed; Nitrate Urine Negative (Negative); Protein Urine Negative (Negative); Specific Grav Ur 1.015 (1.001-1.035); Squamous Epithelial Cell Urine Many /hpf (Few); WBC Urine 0-5 /hpf (0-3)
[2024-10-31 02:58] LABS: Troponin I < 0.012 ng/mL (0.000-0.034)
[2024-10-31] MEDS: ALBUMIN HUMAN 25% 25 GM/100 ML 100 ML IVPB ×4 (02:58→21:15)
--- NOTE | 2024-10-31 03:09 | P.HP_ITS ---
H&P: HPI History of Present Illness Date/Time: 10/31/24 03:09 Chief Complaint: Weakness Narrative: This is a 69-year-old female with past medical history significant for alcohol dependence, hepatic cirrhosis, obstructive sleep apnea, pulmonary hypertension, congestive heart failure, chronic kidney disease, anemia of chronic disease, insulin-dependent diabetes mellitus, GERD. Patient presents to the emergency room via EMS after she is little out of her wheelchair she has been progressively getting weak has had worsening bilateral lower extremity edema and increased abdominal girth. Preliminary workup was significant for brain natriuretic peptide 76412, creatinine 2.3, BUN 41, sodium 126, chloride 95, CBC showed a leukocyte count of 30,000. Patient has been placed in broad-spectrum antibiotics Review of Systems Review of Systems: ROS unobtainable: Yes unobtainable due to mental status (Obtundation/lethargy) PMFSH Past Medical History Medical History Renal insufficiency Osteoarthritis ANTHONY (obstructive sleep apnea) Carotid artery disease Alcoholic cirrhosis of liver Diastolic dysfunction Echocardiogram on 10/20/2023 showed normal left ventricular systolic function with an estimated EF of 60 to 65% as well as abnormal diastolic dysfunction. Left-sided carotid artery disease Carotid Doppler ultrasound on 01/14/2021 showed 50 to 69% stenosis in the left internal carotid artery. Chronic anemia Orthostatic hypotension An ongoing issue for the patient. She has had several syncopal episodes over the years leading to falls and fractures. Alcohol abuse Insulin dependent type 2 diabetes mellitus Hemoglobin A1c was 4.8 % on 07/17/2023. Gastroesophageal reflux disease Hypertension Chronic hyponatremia Eczema Periprosthetic fracture of femur following total replacement of hip (01/2020) Non operative treatment. GERD (gastroesophageal reflux disease) Surgical History Surgical History Status post open reduction with internal fixation of fracture (05/30/21) ORIF of comminuted intra-articular fracture of the distal left femur, done at [facility]. History of hysterectomy (2005) Due to uterine fibroids and endometriosis. History of bilateral cataract extraction History of lumbar surgery (2005) L1-L3. History of right hip replacement (2005) Per Dr. Curiel in [place]. Family History Family History Father Heart attack Mother Diabetes mellitus COPD (chronic obstructive pulmonary disease) Hypertension Afib Sibling Amputation above knee Diabetes mellitus Father , At age 50 Acute myocardial infarction Sibling , At age 50 Pancreatic cancer Social History Social History Social History: The patient lives in her own home in [place]. She has been twice, her 1st and she has since her 2nd . She has no children. She moved to this area within the last couple of years from [place] to be close to her 3 remaining siblings. 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 She has recently retired.She smoked up to 2 packs of cigarettes a day before quitting in 2005. She drinks 2 mixed drinks a day, each containing a shot of vodka which equals out to about 1 L to 1.7 L of vodka a week. She denies illicit substance use. Surrogate decision maker: Miladys Jensen, sister. Code status: Full code. Smoking packs per day: 2 Smoking cigarettes per day: 40.0 Years smoked: 30 Smoking pack-years: 60.00 Smoking status: Former smoker Tobacco type: cigarettes Smokeless tobacco user: chewing tobacco Second hand tobacco smoke exposure: Yes Alcohol intake: current Drinks per week: 14 Do You Feel Safe in your Home?: Yes Lack of Transportation: No Lack of Food: Never True Current Housing: I Have Housing Concerned About Future Housing: No Difficulty Paying Gas/Electric Bills: No Difficulty Paying for Meds: No Currently Unemployed: No Education: Master's Degree or Higher Difficulty w/ Childcare or Family Care: No Living arrangements: alone Occupation/Education: retired Gender identity (if verbalized by the patient): Female Sexual Orientation (if Verbalized by the Patient): Straight or Heterosexual Spiritual care concerns: No Meds Home Medications and Allergies Home Medications ?Medication ?Instructions ?Recorded ?Confirmed ?Type omeprazole magnesium 20 mg 20 mg PO DAILY 02/09/20 08/29/24 History tablet,delayed release (Prilosec OTC) fluticasone propionate 50 1 spray intranasal DAILY PRN 08/16/20 08/29/24 History mcg/actuation nasal allergies spray,suspension thiamine HCl (vitamin B1) 100 mg 100 mg PO QAM #30 tabs 08/18/20 08/29/24 Rx tablet (Vitamin B-1) qzgizehsvwbr-Au-xfgk-minerals 1 tablet PO DAILY #30 tabs 01/16/21 08/29/24 Rx (Multiple Vitamin, Womens tablet) mecobalamin (vitamin B12) 1,000 3,000 mcg PO DAILY 05/13/21 08/29/24 History mcg chewable tablet pyridoxine (vitamin B6) 100 mg 100 mg PO DAILY 05/13/21 08/29/24 History tablet ferrous sulfate 325 mg (65 mg 325 mg PO DAILY 06/06/21 08/29/24 History iron) tablet magnesium oxide 400 mg (241.3 mg 250 mg PO QAM 06/06/21 08/29/24 History magnesium) tablet blood sugar diagnostic #360 ea 10/31/22 08/29/24 Rx empagliflozin 10 mg tablet 10 mg PO DAILY #30 tabs 10/26/23 08/29/24 Rx (Jardiance) spironolactone 25 mg tablet 25 mg PO QAM #30 tabs 10/26/23 08/29/24 Rx cetirizine 10 mg tablet (Zyrtec) 10 mg PO DAILY PRN allergies 10/30/23 08/29/24 History alendronate 70 mg tablet 70 mg PO WEEKLY #12 tabs 12/12/23 08/29/24 Rx Humalog KwikPen Insulin 100 3 unit (0.03 mL) subcut TID #9 mL 04/02/24 08/29/24 Rx unit/mL subcutaneous (insulin lispro) atorvastatin 10 mg tablet 10 mg PO QAM #90 tabs 06/10/24 08/29/24 Rx labetalol 100 mg tablet 100 mg PO BID #60 tabs 06/10/24 08/29/24 Rx ascorbate calcium (vitamin C) 500 500 mg PO DAILY 06/20/24 08/29/24 History mg tablet ascorbic acid (vitamin C) 500 mg 500 mg PO DAILY 06/20/24 08/29/24 History capsule aspirin 81 mg tablet,delayed 81 mg PO DAILY 06/20/24 08/29/24 History release bumetanide 1 mg tablet 0.5 mg PO BID 06/20/24 08/29/24 History folic acid 800 mcg tablet 0.8 mg PO DAILY 06/20/24 08/29/24 History zinc acetate 50 mg (zinc) capsule 50 mg PO DAILY 06/20/24 08/29/24 History (Galzin) clobetasol 0.05 % topical cream 1 applic topical BID 08/06/24 08/29/24 History tacrolimus 0.03 % topical ointment 1 applic topical BID 08/06/24 08/29/24 History calcitriol 0.25 mcg capsule 0.25 mcg PO 4XW #16 caps 08/23/24 08/29/24 Rx pen needle, diabetic 32 gauge x #360 ea 09/11/24 Rx 32 (BD Muriel 2nd Gen Pen Needle) blood-glucose sensor (Dexcom G7 #3 ea 09/13/24 Rx Sensor device) potassium chloride 10 mEq 10 meq PO DAILY #90 caps 09/30/24 Rx capsule,extended release sodium chloride 1,000 mg soluble See Rx Instructions .Route 10/17/24 Rx tablet .COMPLEX #90 tabs insulin glargine 100 unit/mL (3 See Rx Instructions .Route 10/25/24 Rx mL) subcutaneous pen (Lantus .COMPLEX #15 mL Solostar U-100 Insulin) acyclovir 5 % topical cream 1 applic topical DAILY #5 grams 10/26/24 Rx (Zovirax) valacyclovir 1 gram tablet 1,000 mg PO Q8H #24 tabs 10/26/24 Rx Allergies Allergy/AdvReac Type Severity Reaction Status Date / Time codeine AdvReac Unknown Headache Verified 10/22/24 07:34 Vital Signs Vital Signs - 24 hr 10/30/24 22:45 10/30/24 23:23 10/30/24 23:43 Temperature 98.5 F Pulse Rate 104 H 93 Respiratory Rate 20 18 Blood Pressure 98/67 L 88/52 L Pulse Oximetry 100 98 100 Oxygen Delivery Room Air Room Air 10/31/24 01:32 Temperature Pulse Rate 94 Respiratory Rate 16 Blood Pressure 91/50 L Pulse Oximetry 99 Oxygen Delivery Exam Narrative: Patient is laying in a stretcher Const: General: comfortable, no acute distress, well developed, ill appearing chronically, lethargic, patient obtunded and edematous (And anasarca) Nutritional Appearance: edematous Orientation/consciousness: oriented to person, patient obtunded and lethargic HENMT: Head: normal to inspection, normocephalic and atraumatic Ears: hearing grossly normal bilaterally Face/Nose/Sinus: normal facial exam Face and sinus: normal facial exam Eyes: General: appearance normal, both eyes and all related structures Pupils: Equal, round and reactive pupils present EOM: EOMs intact bilaterally Neck: Neck: full ROM, no lymphadenopathy and no JVD Thyroid: thyroid normal Lymphatic: no lymphadenopathy noted Resp: Effort & Inspection: normal respiratory effort and able to speak in complete sentences Auscultation: clear to auscultation bilaterally Cardio: Jugular venous distension: no JVD Rate: regular rate Rhythm: regular rhythm Heart sounds: S1 normal heart sound present and S2 normal heart sound present GI: Inspection: Abdominal wall edema, distended, no visible herniation, No caput medusae present and other (Shingle rash scabbed over right flank) GI Palp: Yes Soft to palpation and Yes No hepatosplenomegaly present : General: Yes deferred Skin: Rashes: rashes noted maculopapular rash anterior abdomen distribution (Right flank), morphology serpiginous and other (Scabbed over) Wounds: no wounds Neuro: General: oriented to person, patient obtunded and Unable to assess gait (Patient uses wheelchair) Cranial nerves: Yes CN's II-XII intact bilaterally and Yes Equal, round and reactive pupils present Cognition (Neuro): abnormal cognition (Obtundation/lethargy) Speech: normal speech Gait exam (Neuro): Unable to assess gait (Patient uses wheelchair) Motor exam (neuro): 5/5 motor strength present throughout Extrem: General: no pedal edema and edema bilateral (4 +) Other: Bilateral venous stasis dermatitis, skin breakdown H&P: Results Labs Labs: Short CBC 10/30/24 Range/Units 23:17 WBC 30.6 H (4.5-10.0) K/mm3 Hgb 9.7 L (12.0-15.0) g/dL Hct 29.4 L (37.0-47.0) % Plt Count 152 (150-375) k/mm3 BMP 10/30/24 23:17 Sodium 126 L Potassium 5.0 Chloride 95 L Carbon Dioxide 22 BUN 43 H D Creatinine 2.23 H Glucose 60 L Calcium 8.7 Cardiac Enzymes 10/30/24 10/31/24 Range/Units 23:17 02:25 Troponin I < 0.012 < 0.012 (0.000-0.034) ng/mL Liver Function 10/30/24 Range/Units 23:17 Total Bilirubin 1.9 H (0.2-1.3) mg/dL AST 50 H (14-36) U/L ALT 27 (6-35) U/L Alkaline Phosphatase 342 H (38-126) U/L Albumin 3.0 L (3.5-5.1) g/dL Urine 10/31/24 Range/Units 02:16 Urine Color Dark yellow (Yellow) Urine Appearance Cloudy H (Clear) Urine pH 5.0 (5.0-9.0) Ur Specific [place] 1.015 (1.001-1.035) Urine Protein Negative (Negative) mg/dL Urine Glucose (UA) Trace H (Negative) mg/dL Assessment and Plan Assessment and plan (1) Leukocytosis: Qualifiers: Leukocytosis type: unspecified Qualified Code(s): D72.829 - Elevated white blood cell count, unspecified Code(s): D72.829 - Elevated white blood cell count, unspecified Status: Acute Assessment and Plan: Admit to ICU Sepsis workup in progress Started broad spectrum antibiotics Early goal-directed therapy ongoing (2) Shingles: Code(s): B02.9 - Zoster without complications Status: Acute Assessment and Plan: Scabbed over (3) Chronic hyponatremia: Code(s): E87.1 - Hypo-osmolality and hyponatremia Status: Chronic Assessment and Plan: Unchanged (4) Ascites: Code(s): R18.8 - Other ascites Status: Acute Assessment and Plan: Patient receiving albumin Paracentesis ultrasound-guided in a.m. Peritoneal fluid for analysis (5) Anasarca: Code(s): R60.1 - Generalized edema Status: Acute Assessment and Plan: Likely a combination hepatic cirrhosis and congestive heart failure Daily intake and output Patient is currently hypotensive unable to diurese Started on vasopressor Receiving albumin (6) Alcohol dependence: Qualifiers: Substance use status: uncomplicated Qualified Code(s): F10.20 - Alcohol dependence, uncomplicated Code(s): F10.20 - Alcohol dependence, uncomplicated Status: Acute Assessment and Plan: CIWA as needed (7) Pulmonary hypertension: Code(s): I27.20 - Pulmonary hypertension, unspecified Status: Acute Assessment and Plan: Currently on supplemental oxygen by nasal cannula (8) Chronic diastolic CHF (congestive heart failure): Code(s): I50.32 - Chronic diastolic (congestive) heart failure Status: Acute Assessment and Plan: Elevated BNP Echocardiogram performed in October 20 reviewed (9) Insulin dependent type 2 diabetes mellitus: Code(s): E11.9 - Type 2 diabetes mellitus without complications; Z79.4 - adjunct faculty for medical terminology (current) use of insulin Status: Acute Assessment and Plan: Currently NPO (10) Advanced cirrhosis of liver: Code(s): K74.60 - Unspecified cirrhosis of liver Status: Acute Assessment and Plan: Consider hospice (11) Alcoholic liver disease: Code(s): K70.9 - Alcoholic liver disease, unspecified Status: Chronic Assessment and Plan: Advanced (12) Anemia of chronic disease: Code(s): D63.8 - Anemia in other chronic diseases classified elsewhere Status: Acute Assessment and Plan: Transfuse as needed (13) Alcoholic peripheral neuropathy: Code(s): G62.1 - Alcoholic polyneuropathy Status: Acute Assessment and Plan: Supportive care (14) ANTHONY (obstructive sleep apnea): Code(s): G47.33 - Obstructive sleep apnea (adult) (pediatric) Status: Acute Assessment and Plan: Patient does not wear a CPAP (15) Venous stasis dermatitis of both lower extremities: Code(s): I87.2 - Venous insufficiency (chronic) (peripheral) Status: Acute Assessment and Plan: Compression stocking (16) GERD (gastroesophageal reflux disease): Qualifiers: Esophagitis presence: esophagitis presence not specified Qualified Cod e(s): K21.9 - Gastro-esophageal reflux disease without esophagitis Code(s): K21.9 - Gastro-esophageal reflux disease without esophagitis Status: Chronic Assessment and Plan: PPI Hospitalist MIPS Advance Care Plan I have confirmed that the patient's Advanced Care Plan is present, code status is documented, or surrogate decision maker is listed in patient medical record.: Yes Medication Reconciliation I have utilized all available resources to obtain, update and review the patients current medications (includes all prescriptions, OTC, herbals, cannabis, and nutritional supplements).: Yes
[2024-10-31] MEDS: NOREPINEPHRINE 8 MG/D5W 250 ML 8 MG/250 ML BAG 9.38 MG IV CONT (03:14)
--- NOTE | 2024-10-31 03:23 | PC.NURSE ---
EDP stated to not titrate norepinephrine drip.
[2024-10-31 04:14] LABS: Ammonia 51 umol/L (9-30)
[2024-10-31] MEDS: ACYCLOVIR SODIUM IVPB 900 MG in DEXTROSE 5% IN WATER 250 ML 268 MG IVPB (04:47)
--- NOTE | 2024-10-31 05:46 | ADMGEN ---
This patient, Lou Islas, was admitted to Intensive Care Unit-6 at 0530. Patient/family oriented to hospital policies and general routines including ID bracelet, bed and alarms, visiting hours, pain management, procedures, bathroom and other care routines, personal items, smoking policy, room service/diet, and visiting hours. Information on how to activate the Rapid Response Team has been discussed. Patient/Family are encouraged to report perceived risks to care and to ask questions if they do not understand what they are told or what they should do.
[2024-10-31] MEDS: PIPERACILLIN/TAZ 2.25G/NS 50ML 2.25 GM/50 ML BAG IVPB ×4 (06:12→23:38)
[2024-10-31] MEDS: LACTULOSE 20 GM/30 ML UDC PO (08:06)
[2024-10-31 08:24] LABS: Basophils Absolute Auto 0.1 K/mm3 (0.0-0.1); Basophils Percent Auto 0.3 % (0.2-1.2); Hemoglobin 8.4 g/dL (12.0-15.0); Immature Granulocyte Absolute 0.39 K/mm3 (0.00-0.031); Immature Granulocyte Percent A 1.6 % (0-0.5); Lymphocytes Absolute Auto 0.83 K/mm3 (0.9-3.2); Lymphocytes Percent Auto 3.4 % (18.3-44.2); Mean Corpuscular HGB Conc 33.6 g/dl (32-36); Mean Corpuscular Hemoglobin 32.9 pg (26-34); Mean Platelet Volume 9.3 fl (7.4-10.4); Monocytes Absolute Auto 1.4 K/mm3 (0.1-0.6); Monocytes Percent Auto 5.6 % (2.6-8.5); Neutrophils Absolute Auto 21.7 K/mm3 (1.3-6.7); Neutrophils Percent Auto 89.1 % (45.5-73.1); Platelet Count Result 127 k/mm3 (150-375); Red Blood Count 2.55 M/mm3 (4.2-5.4); Red Cell Distribution Width 14.1 % (11.5-14.5); White Blood Count 24.3 K/mm3 (4.5-10.0)
[2024-10-31 08:33] LABS: Lactic Acid Reflex 1.2 mmol/L (0.7-2.0)
[2024-10-31 08:34] LABS: Alanine Aminotransferase 24 U/L (6-35); Albumin Level 2.6 g/dL (3.5-5.1); Alkaline Phosphatase 269 U/L (38-126); Anion Gap 7 mmol/L (4-12); Aspartate Amino Transferase 55 U/L (14-36); Bilirubin,Total 1.9 mg/dL (0.2-1.3); Blood Urea Nitrogen 43 mg/dL (7-17); Calcium 8.2 mg/dL (8.4-10.2); Carbon Dioxide 22 mmol/L (22-30); Chloride 97 mmol/L (98-107); Creatine Kinase 271 U/L (30-135); Estimated CRCL calculation 23 ml/min; Estimated Glomerular Filt Rate 21; Glucose 101 mg/dL (65-110); Magnesium 2.1 mg/dL (1.6-2.3); Phosphorus 4.5 mg/dL (2.5-4.5); Potassium 3.9 mmol/L (3.4-5.0); Sodium 126 mmol/L (137-145)
--- NOTE | 2024-10-31 08:43 | PM.CNCAR ---
Assessment and Plan Assessment and plan (1) Acute on chronic diastolic (congestive) heart failure: Code(s): I50.33 - Acute on chronic diastolic (congestive) heart failure Status: Acute (2) Hyperlipidemia, unspecified: Qualifiers: Hyperlipidemia type: mixed hyperlipidemia Qualified Code(s): E78.2 - Mixed hyperlipidemia Code(s): E78.5 - Hyperlipidemia, unspecified Status: Acute (3) Hypertension: Qualifiers: Hypertension type: primary hypertension Qualified Code(s): I10 - Essential (primary) hypertension Code(s): I10 - Essential (primary) hypertension Status: Acute Plan 69-year-old woman with chronic diastolic heart failure, left carotid stenosis, diabetes mellitus type 2, hyperlipidemia, and CKD stage 3B presented after a fall Acute on chronic diastolic heart failure -recommend Bumex 1 mg IV b.i.d. and monitor renal function closely -continue holding spironolactone -monitor urine output Hypertension -resolved and required albumin with Levophed most likely in setting of sepsis Hyperlipidemia -atorvastatin 10 mg every evening Patient follows Dr. Edmonds in cardiology clinic History of Present Illness History of Present Illness Consult date/time: 10/31/24 08:43 Requesting physician: Tanya Sequeira MD Consult reason: congestive heart failure Reason For Visit: Sepsis Narrative: 69-year-old woman with chronic diastolic heart failure, left carotid stenosis, diabetes mellitus type 2, hyperlipidemia, and CKD stage 3B presented after a fall. She felt that her legs were feeling weak as she got off her wheelchair and fell. She has been feeling more short of breath in the last week along with increasing abdominal swelling. States that her lower extremities have been red for several years now. Denies any significant chest pain. Review of Systems Cardiovascular: Cardiovascular: Reports as per HPI Respiratory: Respiratory: Reports as per HPI [facility] Past Medical History Medical History Renal insufficiency Osteoarthritis ANTHONY (obstructive sleep apnea) Carotid artery disease Alcoholic cirrhosis of liver Diastolic dysfunction Echocardiogram on 10/20/2023 showed normal left ventricular systolic function with an estimated EF of 60 to 65% as well as abnormal diastolic dysfunction. Left-sided carotid artery disease Carotid Doppler ultrasound on 01/14/2021 showed 50 to 69% stenosis in the left internal carotid artery. Chronic anemia Orthostatic hypotension An ongoing issue for the patient. She has had several syncopal episodes over the years leading to falls and fractures. Alcohol abuse Insulin dependent type 2 diabetes mellitus Hemoglobin A1c was 4.8 % on 07/17/2023. Gastroesophageal reflux disease Hypertension Chronic hyponatremia Eczema Periprosthetic fracture of femur following total replacement of hip (01/2020) Non operative treatment. GERD (gastroesophageal reflux disease) Surgical History Surgical History Status post open reduction with internal fixation of fracture (05/30/21) ORIF of comminuted intra-articular fracture of the distal left femur, done at [facility]. History of hysterectomy (2005) Due to uterine fibroids and endometriosis. History of bilateral cataract extraction History of lumbar surgery (2005) L1-L3. History of right hip replacement (2005) Per Dr. Curiel in [place]. Family History Family History Father Heart attack Mother Diabetes mellitus COPD (chronic obstructive pulmonary disease) Hypertension Afib Sibling Amputation above knee Diabetes mellitus Father , At age 50 Acute myocardial infarction Sibling , At age 50 Pancreatic cancer Social History Social History Social History: The patient lives in her own home in [place]. She has been twice, her 1st and she has since her 2nd . She has no children. She moved to this area within the last couple of years from [place] to be close to her 3 remaining siblings. 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 She has recently retired.She smoked up to 2 packs of cigarettes a day before quitting in 2005. She drinks 2 mixed drinks a day, each containing a shot of vodka which equals out to about 1 L to 1.7 L of vodka a week. She denies illicit substance use. Surrogate decision maker: Miladys Jensen, sister. Code status: Full code. Smoking packs per day: 2 Smoking cigarettes per day: 40.0 Years smoked: 30 Smoking pack-years: 60.00 Smoking status: Former smoker Tobacco type: cigarettes Smokeless tobacco user: chewing tobacco Second hand tobacco smoke exposure: Yes Alcohol intake: current Drinks per week: 14 Substance use type: does not use Do You Feel Safe in your Home?: Yes Lack of Transportation: No Lack of Food: Never True Current Housing: I Have Housing Concerned About Future Housing: No Difficulty Paying Gas/Electric Bills: No Difficulty Paying for Meds: No Currently Unemployed: No Education: Master's Degree or Higher Difficulty w/ Childcare or Family Care: No Living arrangements: alone Occupation/Education: retired Gender identity (if verbalized by the patient): Female Sexual Orientation (if Verbalized by the Patient): Straight or Heterosexual Spiritual care concerns: No Meds Home Medications and Allergies Home Medications ?Medication ?Instructions ?Recorded ?Confirmed ?Type fluticasone propionate 50 1 spray intranasal DAILY PRN 08/16/20 10/31/24 History mcg/actuation nasal allergies spray,suspension thiamine HCl (vitamin B1) 100 mg 100 mg PO QAM #30 tabs 08/18/20 10/31/24 Rx tablet (Vitamin B-1) yufkjinjymln-Cs-qqka-minerals 1 tablet PO DAILY #30 tabs 01/16/21 10/31/24 Rx (Multiple Vitamin, Womens tablet) mecobalamin (vitamin B12) 1,000 3,000 mcg PO DAILY 05/13/21 10/31/24 History mcg chewable tablet pyridoxine (vitamin B6) 100 mg 100 mg PO DAILY 05/13/21 10/31/24 History tablet magnesium oxide 400 mg (241.3 mg 250 mg PO QAM 06/06/21 10/31/24 History magnesium) tablet blood sugar diagnostic #360 ea 10/31/22 10/31/24 Rx empagliflozin 10 mg tablet 10 mg PO DAILY #30 tabs 10/26/23 10/31/24 Rx (Jardiance) spironolactone 25 mg tablet 25 mg PO QAM #30 tabs 10/26/23 10/31/24 Rx alendronate 70 mg tablet 70 mg PO WEEKLY #12 tabs 12/12/23 10/31/24 Rx Humalog KwikPen Insulin 100 3 unit (0.03 mL) subcut TID #9 mL 04/02/24 10/31/24 Rx unit/mL subcutaneous (insulin lispro) atorvastatin 10 mg tablet 10 mg PO QAM #90 tabs 06/10/24 10/31/24 Rx labetalol 100 mg tablet 100 mg PO BID #60 tabs 06/10/24 10/31/24 Rx ascorbate calcium (vitamin C) 500 500 mg PO DAILY 06/20/24 10/31/24 History mg tablet aspirin 81 mg tablet,delayed 81 mg PO DAILY 06/20/24 10/31/24 History release bumetanide 1 mg tablet 0.5 mg PO BID 06/20/24 10/31/24 History folic acid 800 mcg tablet 0.8 mg PO DAILY 06/20/24 10/31/24 History tacrolimus 0.03 % topical ointment 1 applic topical BID 08/06/24 10/31/24 History calcitriol 0.25 mcg capsule 0.25 mcg PO 4XW #16 caps 08/23/24 10/31/24 Rx pen needle, diabetic 32 gauge x #360 ea 09/11/24 10/31/24 Rx /32 (BD Muriel 2nd Gen Pen Needle) blood-glucose sensor (Dexcom G7 #3 ea 09/13/24 10/31/24 Rx Sensor device) potassium chloride 10 mEq 10 meq PO DAILY #90 caps 09/30/24 10/31/24 Rx capsule,extended release sodium chloride 1,000 mg soluble See Rx Instructions .Route 10/17/24 10/31/24 Rx tablet .COMPLEX #90 tabs insulin glargine 100 unit/mL (3 See Rx Instructions .Route 10/25/24 10/31/24 Rx mL) subcutaneous pen (Lantus .COMPLEX #15 mL Solostar U-100 Insulin) acyclovir 5 % topical cream 1 applic topical DAILY #5 grams 10/26/24 10/31/24 Rx (Zovirax) valacyclovir 1 gram tablet 1,000 mg PO Q8H #24 tabs 10/26/24 10/31/24 Rx metolazone 2.5 mg tablet 2.5 mg PO DAILY 10/31/24 10/31/24 History Allergies Allergy/AdvReac Type Severity Reaction Status Date / Time codeine AdvReac Unknown Headache Verified 10/22/24 07:34 Vital Signs Vital Signs - 24 hr 10/30/24 22:45 10/30/24 23:23 10/30/24 23:43 Temperature 36.9 C Pulse Rate 104 H 93 Respiratory Rate 20 18 Blood Pressure 98/67 L 88/52 L Pulse Oximetry 100 98 100 Oxygen Delivery Room Air Room Air 10/31/24 01:32 10/31/24 02:44 10/31/24 03:14 Temperature Pulse Rate 94 99 97 Respiratory Rate 16 14 Blood Pressure 91/50 L 110/61 91/49 L Pulse Oximetry 99 98 Oxygen Delivery 10/31/24 03:20 10/31/24 03:22 10/31/24 05:36 Temperature Pulse Rate 99 94 88 Respiratory Rate 15 14 18 Blood Pressure 109/51 L 91/53 L 110/48 L Pulse Oximetry 99 98 97 Oxygen Delivery 10/31/24 05:38 10/31/24 05:39 10/31/24 06:00 Temperature Pulse Rate 96 88 100 Respiratory Rate 18 Blood Pressure 110/48 L 113/50 L Pulse Oximetry 97 Oxygen Delivery 10/31/24 06:00 10/31/24 06:00 10/31/24 06:44 Temperature 37.7 C H Pulse Rate 98 98 Respiratory Rate 24 H Blood Pressure 113/50 L Pulse Oximetry 93 Oxygen Delivery Room Air 10/31/24 07:00 10/31/24 07:15 10/31/24 07:30 Temperature Pulse Rate 99 98 97 Respiratory Rate Blood Pressure 107/53 L 108/50 L 108/52 L Pulse Oximetry Oxygen Delivery 10/31/24 07:46 10/31/24 08:06 10/31/24 08:17 Temperature Pulse Rate 97 98 99 Respiratory Rate Blood Pressure 106/53 L 102/54 L 130/53 L Pulse Oximetry Oxygen Delivery Exam Const: General: comfortable HENMT: Mouth: Yes moist mucous membranes Eyes: EOM: EOMs intact bilaterally Neck: Neck: no JVD Resp: Auscultation: rales Cardio: Rate: regular rate Rhythm: regular rhythm GI: Inspection: distended Extrem: Other: Both lower extremities erythematous with chronic skin changes Results Labs and Meds 10/30/24 23:17 10/31/24 08:15 Lab results: Cardiac Enzymes 10/30/24 10/31/24 10/31/24 Range/Units 23:17 02:25 08:15 AST 50 H 55 H (14-36) U/L Troponin I < 0.012 < 0.012 (0.000-0.034) ng/mL Coagulation 10/30/24 Range/Units 23:17 PT 16.8 H (11.1-14.7) Seconds APTT 34.4 (22.3-36.8) Seconds CBC 10/30/24 Range/Units 23:17 WBC 30.6 H (4.5-10.0) K/mm3 RBC 3.00 L (4.2-5.4) M/mm3 Hgb 9.7 L (12.0-15.0) g/dL Hct 29.4 L (37.0-47.0) % Plt Count 152 (150-375) k/mm3 Lymph # (Auto) 0.64 L (0.9-3.2) K/mm3 Hall # (Auto) 1.0 H (0.1-0.6) K/mm3 Eos # (Auto) 0.2 (0-0.3) K/mm3 Baso # (Auto) 0.1 (0.0-0.1) K/mm3 Comprehensive Metabolic Panel 10/30/24 10/31/24 Range/Units 23:17 08:15 Sodium 126 L 126 L (137-145) mmol/L Potassium 5.0 3.9 (3.4-5.0) mmol/L Chloride 95 L 97 L (98-107) mmol/L Carbon Dioxide 22 22 (22-30) mmol/L BUN 43 H D 43 H (7-17) mg/dL Creatinine 2.23 H 2.28 H (0.7-1.0) mg/dL Glucose 60 L 101 (65-110) mg/dL Calcium 8.7 8.2 L (8.4-10.2) mg/dL AST 50 H 55 H (14-36) U/L ALT 27 24 (6-35) U/L Alkaline Phosphatase 342 H 269 H (38-126) U/L Total Protein 6.0 L 5.0 L (6.3-8.2) g/dL Albumin 3.0 L 2.6 L (3.5-5.1) g/dL Intake and Output 10/30/24 10/31/24 10/31/24 23:59 07:59 15:59 Intake Total 1257.7 1.5 Balance 1257.7 1.5 Intake: IV 1257.7 1.5 Dextrose 10% 250 ml @ 250 mls/ 250 hr IV CONT .Q1H ONE Rx#: [id number] Norepinephrine 8 mg/D5w 250 ml 39.7 1.5 8 mg In 250 ml @ 5 MCG/MIN 9. 375 mls/hr IV CONT .Q24H STA Rx #:[id number] Acyclovir Sodium Ivpb 900 mg In 268 Dextrose 5% in Water 250 ml @ 268 mls/hr IVPB Q24H [facility] Rx#: [id number] Albumin Human 25% 25 gm/100 ml 100 100 ml @ 60 mls/hr IVPB ONCE ONE Rx#:[id number] Piperacillin/Luis Daniel 2.25G/Ns 50Ml 50 2.25 gm In 50 ml @ 100 mls/hr IVPB Q6HR [facility] Rx#:[id number] Piperacilln/Luis Daniel 3.375GM/Ns50ml 50 3.375 gm In 50 ml @ 100 mls/hr IVPB ONCE STA Rx#:[id number] Vancomycin 1,500 mg/Ns 500 ml 1 500 ,500 mg In 500 ml @ 250 mls/hr IVPB ONCE ONE Rx#:[id number] Patient Weight 10/31/24 23:59 Weight 89.6 kg
[2024-10-31 08:44] LABS: Creatinine Urine 99.1 mg/dL
[2024-10-31 08:58] LABS: Eosinophil Urine None Seen % (None Seen); Urine Eos QC 2nd Tech Confirmed
[2024-10-31 09:03] LABS: MRSA (PCR) NOT DETECTED (NOT DETECTE)
[2024-10-31] MEDS: NOREPINEPHRINE 8 MG/D5W 250 ML 8 MG/250 ML BAG 3.75 MG IV CONT (09:20)
[2024-10-31 09:26] LABS: Potassium Urine Random 51.1 meq/L; Sodium Urine Random 8 meq/L
--- NOTE | 2024-10-31 09:34 | WPDCNINT ---
Assessment and Plan Assessment and plan (1) Septic shock: Code(s): A41.9 - Sepsis, unspecified organism; R65.21 - Severe sepsis with septic shock Status: Acute Assessment and Plan: 10/31: Patient presented with generalized weakness, anasarca, bilateral lower and upper extremity edema, warm and erythematous skin of lower extremity likely cellulitis -etiology of septic shock likely related to UTI, cellulitis -lactic acid has normalized -patient has received albumin for intravascular volume expansion -continue Levophed, maintain MAP > 60- 65 mmHg for adequate end organ perfusion -acute kidney injury likely related to hypotension, septic shock, continue volume expansion -will start maintenance IV fluids for 1 L -started on Zosyn and vancomycin (10/31) (2) Acute renal failure: Qualifiers: Acute renal failure type: unspecified Qualified Code(s): N17.9 - Acute kidney failure, unspecified Code(s): N17.9 - Acute kidney failure, unspecified Status: Acute Assessment and Plan: Acute kidney injury likely related to hypovolemia, infection, hypotension -receiving albumin for volume expansion -will start maintenance IV fluids for 1 L -urine lytes reflective of prerenal azotemia -urine eosinophils were negative, CK levels of 271 -nephrology has been consulted -continue to monitor urine output, electrolytes and renal function -encourage p.o. intake (3) Shingles: Code(s): B02.9 - Zoster without complications Status: Acute Assessment and Plan: Switched to valacyclovir (4) Hyponatremia: Code(s): E87.1 - Hypo-osmolality and hyponatremia Status: Acute Assessment and Plan: Chronic hyponatremia likely related to hypovolemic hyponatremia -continue to monitor for now -nephrology has been consulted (5) Anasarca: Code(s): R60.1 - Generalized edema Status: Acute Assessment and Plan: Generalized anasarca likely related to cirrhosis/liver disease -patient receiving albumin -Once her blood pressures are improved, will diurese the patient (6) Alcohol dependence: Qualifiers: Substance use status: uncomplicated Qualified Code(s): F10.20 - Alcohol dependence, uncomplicated Code(s): F10.20 - Alcohol dependence, uncomplicated Status: Acute Assessment and Plan: Patient drinks 3 shots of vodka daily -will monitor for alcohol withdrawal (7) Acute on chronic diastolic (congestive) heart failure: Code(s): I50.33 - Acute on chronic diastolic (congestive) heart failure Status: Acute Assessment and Plan: Appreciate, cardiology following the patient, recommended Bumex -currently patient on Levophed, I feel that she is intravascularly depleted at this time given her infection secondary to UTI and cellulitis -once she is off Levophed will start diuresing her -patient also has a history of hypertension, takes labetalol, Bumex, metolazone, spironolactone at home (8) Advanced cirrhosis of liver: Code(s): K74.60 - Unspecified cirrhosis of liver Status: Acute Assessment and Plan: Likely related to to alcohol -GI to follow the patient -Oni's DF = 24 10/31: CT scan of the chest, abdomen and pelvis Small right pleural effusion and minimal left pleural effusion. Small focal groundglass opacity right lung, as above, which could reflect focal pulmonary edema or focal pneumonitis. Cirrhotic liver. Cholelithiasis. Impression fractures of L1, L2, L4, and L5. Extensive soft tissue anasarca changes. Small pericardial effusion with pericardial thickening and calcification. Correlate for constrictive or restrictive pericarditis. (9) Anemia: Code(s): D64.9 - Anemia, unspecified Status: Acute Assessment and Plan: Patient has a history of chronic anemia -continue to monitor for now, no acute bleeding noted -will transfuse if hemoglobin < 7.0 (10) ANTHONY (obstructive sleep apnea): Code(s): G47.33 - Obstructive sleep apnea (adult) (pediatric) Status: Acute Assessment and Plan: Obstructive sleep apnea, follows with adhesive sprayer. Dr. Samayoa (11) Type 2 diabetes mellitus with diabetic peripheral angiopathy without gangrene: Qualifiers: Diabetes mellitus senior living insulin use: with terminal gauger supervisor use Qualified Code(s): E11.51 - Type 2 diabetes mellitus with diabetic peripheral angiopathy without gangrene; Z79.4 - senior living (current) use of insulin Code(s): E11.51 - Type 2 diabetes mellitus with diabetic peripheral angiopathy without gangrene Status: Acute Assessment and Plan: Accu-Cheks and sliding scale insulin Plan DVT prophylaxis: Heparin Sq Stress ulcer prophylaxis: Not indicated Nutrition: Diabetic diet Code Status: Do not resuscitate Critical Care Time Spent: 49 minutes Due to a high probability of clinically significant, life threatening deterioration, the patient required my highest level of preparedness to intervene emergently and I personally spent this critical care time directly and personally managing the patient. This critical care time included obtaining a history; examining the patient; pulse oximetry; ordering and review of studies; arranging urgent treatment with development of a management plan; evaluation of patient's response to treatment; frequent reassessment; and discussions with other providers. It was exclusive of separately billable procedures and treating other patients and teaching time. Please see Assessment and Plan section and the rest of the note for further information on patient assessment and treatment This dictation may have been done utilizing a voice recognition system. Attempts have been made to correct errors. However, there may be uncorrected grammatical, spelling, and recognitions errors present. Under Cutting Machine Operator Consult Note Consult date: 10/31/24 Reason for consult: Generalized weakness, anasarca, bilateral upper and lower extremity edema, fall from wheelchair HPI: Lou Islas is a 69 year old female past medical history renal insufficiency, obstructive sleep apnea, carotid artery disease, diastolic dysfunction, chronic anemia, orthostatic hypotension, alcohol abuse, cirrhosis, insulin-dependent diabetes, GERD, essential hypertension, chronic hyponatremia presented the ED on 10/31/2024 after she called the EMS as she slid out of her wheelchair and was unable to get off the ground. Patient also complains of increased swelling of her lower extremities all the way up to her abdomen which has been worsening since the last 3-4 weeks. Patient also has chronic ulcerations/lymphedema in her lower extremities which have also been there for a while according the patient. In the ER patient was found to be hypotensive with a blood pressure of 80/50 and hyperglycemic with a blood sugar of 63 and was given dextrose. Patient's white count in the ER was 30,000, initial lactic was 2.4 and repeat was 1.3. Creatinine was 2.2, ( baseline of approximately 1.10). BNP was [address]. Patient was given Bumex and albumin. Blood pressures remain low, Central line was inserted and patient was started on Levophed. She was transferred to the ICU for further management Patient seen and examined the ICU, is awake, alert, oriented x2. States she feels much better than the time she came to the hospital. Denies any shortness of breath, chest pain, abdominal pain, nausea, vomiting at this time she just complains of diffuse aching/discomfort because of the swelling in her arms, legs, abdomen. Patient has been afebrile, no urine output overnight, patient was on Levophed, which was switched off and had to be restarted on 2 mcg/min. Review of Systems Review of Systems: All systems reviewed & are unremarkable except as noted in HPI and below PMFSH Past Medical History Medical History Renal insufficiency Osteoarthritis ANTHONY (obstructive sleep apnea) Carotid artery disease Alcoholic cirrhosis of liver Diastolic dysfunction Echocardiogram on 10/20/2023 showed normal left ventricular systolic function with an estimated EF of 60 to 65% as well as abnormal diastolic dysfunction. Left-sided carotid artery disease Carotid Doppler ultrasound on 01/14/2021 showed 50 to 69% stenosis in the left internal carotid artery. Chronic anemia Orthostatic hypotension An ongoing issue for the patient. She has had several syncopal episodes over the years leading to falls and fractures. Alcohol abuse Insulin dependent type 2 diabetes mellitus Hemoglobin A1c was 4.8 % on 07/17/2023. Gastroesophageal reflux disease Hypertension Chronic hyponatremia Eczema Periprosthetic fracture of femur following total replacement of hip (01/2020) Non operative treatment. GERD (gastroesophageal reflux disease) Surgical History Surgical History Status post open reduction with internal fixation of fracture (05/30/21) ORIF of comminuted intra-articular fracture of the distal left femur, done at [facility]. History of hysterectomy (2005) Due to uterine fibroids and endometriosis. History of bilateral cataract extraction History of lumbar surgery (2005) L1-L3. History of right hip replacement (2005) Per Dr. Curiel in [place]. Family History Family History Father Heart attack Mother Diabetes mellitus COPD (chronic obstructive pulmonary disease) Hypertension Afib Sibling Amputation above knee Diabetes mellitus Father , At age 50 Acute myocardial infarction Sibling , At age 50 Pancreatic cancer Social History Social History Social History: The patient lives in her own home in [place]. She has been twice, her 1st and she has since her 2nd . She has no children. She moved to this area within the last couple of years from [place] to be close to her 3 remaining siblings. She worked from home for a [employer] doing [employer] and she has a master's degree in statistics. She has recently retired.She smoked up to 2 packs of cigarettes a day before quitting in 2005. She drinks 2 mixed drinks a day, each containing a shot of vodka which equals out to about 1 L to 1.7 L of vodka a week. She denies illicit substance use. Surrogate decision maker: Miladys Jensen, sister. Code status: Full code. Smoking packs per day: 2 Smoking cigarettes per day: 40.0 Years smoked: 30 Smoking pack-years: 60.00 Smoking status: Former smoker Tobacco type: cigarettes Smokeless tobacco user: chewing tobacco Second hand tobacco smoke exposure: Yes Alcohol intake: current Drinks per week: 14 Substance use type: does not use Do You Feel Safe in your Home?: Yes Lack of Transportation: No Lack of Food: Never True Current Housing: I Have Housing Concerned About Future Housing: No Difficulty Paying Gas/Electric Bills: No Difficulty Paying for Meds: No Currently Unemployed: No Education: Master's Degree or Higher Difficulty w/ Childcare or Family Care: No Living arrangements: alone Occupation/Education: retired Gender identity (if verbalized by the patient): Female Sexual Orientation (if Verbalized by the Patient): Straight or Heterosexual Spiritual care concerns: No Meds Home Medications and Allergies Home Medications ?Medication ?Instructions ?Recorded ?Confirmed ?Type fluticasone propionate 50 1 spray intranasal DAILY PRN 08/16/20 10/31/24 History mcg/actuation nasal allergies spray,suspension thiamine HCl (vitamin B1) 100 mg 100 mg PO QAM #30 tabs 08/18/20 10/31/24 Rx tablet (Vitamin B-1) kdvxxlzjtdgx-Vw-wybr-minerals 1 tablet PO DAILY #30 tabs 01/16/21 10/31/24 Rx (Multiple Vitamin, Womens tablet) mecobalamin (vitamin B12) 1,000 3,000 mcg PO DAILY 05/13/21 10/31/24 History mcg chewable tablet pyridoxine (vitamin B6) 100 mg 100 mg PO DAILY 05/13/21 10/31/24 History tablet magnesium oxide 400 mg (241.3 mg 250 mg PO QAM 06/06/21 10/31/24 History magnesium) tablet blood sugar diagnostic #360 ea 10/31/22 10/31/24 Rx empagliflozin 10 mg tablet 10 mg PO DAILY #30 tabs 10/26/23 10/31/24 Rx (Jardiance) spironolactone 25 mg tablet 25 mg PO QAM #30 tabs 10/26/23 10/31/24 Rx alendronate 70 mg tablet 70 mg PO WEEKLY #12 tabs 12/12/23 10/31/24 Rx Humalog KwikPen Insulin 100 3 unit (0.03 mL) subcut TID #9 mL 04/02/24 10/31/24 Rx unit/mL subcutaneous (insulin lispro) atorvastatin 10 mg tablet 10 mg PO QAM #90 tabs 06/10/24 10/31/24 Rx labetalol 100 mg tablet 100 mg PO BID #60 tabs 06/10/24 10/31/24 Rx ascorbate calcium (vitamin C) 500 500 mg PO DAILY 06/20/24 10/31/24 History mg tablet aspirin 81 mg tablet,delayed 81 mg PO DAILY 06/20/24 10/31/24 History release bumetanide 1 mg tablet 0.5 mg PO BID 06/20/24 10/31/24 History folic acid 800 mcg tablet 0.8 mg PO DAILY 06/20/24 10/31/24 History tacrolimus 0.03 % topical ointment 1 applic topical BID 08/06/24 10/31/24 History calcitriol 0.25 mcg capsule 0.25 mcg PO 4XW #16 caps 08/23/24 10/31/24 Rx pen needle, diabetic 32 gauge x #360 ea 09/11/24 10/31/24 Rx 5/32 (BD Muriel 2nd Gen Pen Needle) blood-glucose sensor ([employer] G7 #3 ea 09/13/24 10/31/24 Rx Sensor device) potassium chloride 10 mEq 10 meq PO DAILY #90 caps 09/30/24 10/31/24 Rx capsule,extended release sodium chloride 1,000 mg soluble See Rx Instructions .Route 10/17/24 10/31/24 Rx tablet .COMPLEX #90 tabs insulin glargine 100 unit/mL (3 See Rx Instructions .Route 10/25/24 10/31/24 Rx mL) subcutaneous pen (Lantus .COMPLEX #15 mL Solostar U-100 Insulin) acyclovir 5 % topical cream 1 applic topical DAILY #5 grams 10/26/24 10/31/24 Rx (Zovirax) valacyclovir 1 gram tablet 1,000 mg PO Q8H #24 tabs 10/26/24 10/31/24 Rx metolazone 2.5 mg tablet 2.5 mg PO DAILY 10/31/24 10/31/24 History Allergies Allergy/AdvReac Type Severity Reaction Status Date / Time codeine AdvReac Unknown Headache Verified 10/22/24 07:34 Vital Signs Vital Signs - 24 hr 10/30/24 22:45 10/30/24 23:23 10/30/24 23:43 Temperature 98.5 F Pulse Rate 104 H 93 Respiratory Rate 20 18 Blood Pressure 98/67 L 88/52 L Pulse Oximetry 100 98 100 Oxygen Delivery Room Air Room Air 10/31/24 01:32 10/31/24 02:44 10/31/24 03:14 Temperature Pulse Rate 94 99 97 Respiratory Rate 16 14 Blood Pressure 91/50 L 110/61 91/49 L Pulse Oximetry 99 98 Oxygen Delivery 10/31/24 03:20 10/31/24 03:22 10/31/24 05:36 Temperature Pulse Rate 99 94 88 Respiratory Rate 15 14 18 Blood Pressure 109/51 L 91/53 L 110/48 L Pulse Oximetry 99 98 97 Oxygen Delivery 10/31/24 05:38 10/31/24 05:39 10/31/24 06:00 Temperature Pulse Rate 96 88 100 Respiratory Rate 18 Blood Pressure 110/48 L 113/50 L Pulse Oximetry 97 Oxygen Delivery 10/31/24 06:00 10/31/24 06:00 10/31/24 06:44 Temperature 100 F H Pulse Rate 98 98 Respiratory Rate 24 H Blood Pressure 113/50 L Pulse Oximetry 93 Oxygen Delivery Room Air 10/31/24 07:00 10/31/24 07:15 10/31/24 07:30 Temperature Pulse Rate 99 98 97 Respiratory Rate Blood Pressure 107/53 L 108/50 L 108/52 L Pulse Oximetry Oxygen Delivery 10/31/24 07:46 10/31/24 08:00 10/31/24 08:06 Temperature 99.8 F H Pulse Rate 97 98 98 Respiratory Rate 16 Blood Pressure 106/53 L 102/54 L 102/54 L Pulse Oximetry 94 Oxygen Delivery 10/31/24 08:17 10/31/24 08:30 10/31/24 08:45 Temperature Pulse Rate 99 98 98 Respiratory Rate Blood Pressure 130/53 L 99/46 L 107/54 L Pulse Oximetry Oxygen Delivery 10/31/24 09:20 Temperature Pulse Rate 97 Respiratory Rate Blood Pressure 88/48 L Pulse Oximetry Oxygen Delivery Exam Narrative: General: Pleasant female in no acute distress HEENT:? Pupils equal and reactive, sclerae is clear, moist oral mucosa Neck:? Supple Respiratory:? Coarse breath sounds bilaterally, decreased at bases, adequate air entry Cardiac:? S1-S2 is normal, regular rate and rhythm Abdomen:? Abdomen is distended, anasarca, hypoactive bowel sounds, nontender, Extremities:? edematous, decreased pedal pulses Neuro:? Patient is awake, alert, oriented x2, follows simple command Skin:?Shingles rash over the right side of the abdomen, erythematous and warm, skin cracking with ulceration Psych:? Normal mentation and affect Results Labs 10/31/24 08:15 10/31/24 08:15 Labs: Short CBC 10/30/24 10/31/24 Range/Units 23:17 08:15 WBC 30.6 H 24.3 H (4.5-10.0) K/mm3 Hgb 9.7 L 8.4 L (12.0-15.0) g/dL Hct 29.4 L 25.0 L (37.0-47.0) % Plt Count 152 127 L (150-375) k/mm3 BMP 10/30/24 10/31/24 23:17 08:15 Sodium 126 L 126 L Potassium 5.0 3.9 Chloride 95 L 97 L Carbon Dioxide 22 22 BUN 43 H D 43 H Creatinine 2.23 H 2.28 H Glucose 60 L 101 Calcium 8.7 8.2 L Cardiac Enzymes 10/30/24 10/31/24 10/31/24 Range/Units 23:17 02:25 08:15 Total Creatine Kinase 271 H (30-135) U/L Troponin I < 0.012 < 0.012 (0.000-0.034) ng/mL Liver Function 10/30/24 10/31/24 Range/Units 23:17 08:15 Total Bilirubin 1.9 H 1.9 H (0.2-1.3) mg/dL AST 50 H 55 H (14-36) U/L ALT 27 24 (6-35) U/L Alkaline Phosphatase 342 H 269 H (38-126) U/L Albumin 3.0 L 2.6 L (3.5-5.1) g/dL Urine 10/31/24 Range/Units 02:16 Urine Color Dark yellow (Yellow) Urine Appearance Cloudy H (Clear) Urine pH 5.0 (5.0-9.0) Ur Specific [place] 1.015 (1.001-1.035) Urine Protein Negative (Negative) mg/dL Urine Glucose (UA) Trace H (Negative) mg/dL Quality VTE Prophylaxis VTE prophylaxis: pharmacologic ordered Hospitalist MIPS Advance Care Plan I have confirmed that the patient's Advanced Care Plan is present, code status is documented, or surrogate decision maker is listed in patient medical record.: Yes Medication Reconciliation I have utilized all available resources to obtain, update and review the patients current medications (includes all prescriptions, OTC, herbals, cannabis, and nutritional supplements).: Yes
[2024-10-31] MEDS: PERFLUTREN LIPID MICROSPHERES 1.5 ML VIAL DILUTED TO 10 ML TOTAL VOLUME IV PUSH (09:45)
--- NOTE | 2024-10-31 12:00 | IVDEFINITY ---
Prior to administration of IV Definity the patient was educated on the risks and benefits of the imaging enhancing agent including potential adverse side effects. The patient verbalized understanding. Allergies were verified. No exclusion criteria were identified and at least one of the following inclusion criteria were met: 1) physician request, 2) patient technically difficult to image (per the [place] [employer] guidelines of two or more segments not discernable within the apical view), or 3) questionable left ventricular function. ?
[2024-10-31 12:46] LABS: Glucose Point of Care 130 mg/dl (65-105)
--- NOTE | 2024-10-31 14:42 | P.CONNP_ITS ---
Assessment and Plan Assessment and plan (1) CATHRYN (acute kidney injury): Code(s): N17.9 - Acute kidney failure, unspecified Status: Acute Assessment and Plan: * as noted on admission * suspect multifactorial: * prerenal factors * infection/sepsis * hemodynamic instability/shock * BP medications + diuretics prior to admission * other (?) * evaluation to date noted: * renal U/S + CT A/P without obstruction * urine eosinophils negative * urine electrolytes prerenal * CPK mildly elevated (bet not enough to affect kidney function) * UA suggest possible infection * suspect a component of intravascular volume depletion in spite of exam and imaging findings demonstrating anasarca/fluid overload * follow trend of repeat labs and UOP (2) Chronic kidney disease, stage 3: Code(s): N18.30 - Chronic kidney disease, stage 3 unspecified Status: Chronic Assessment and Plan: * creatinine has fluctuated in the last several years * seems to average out around 1.3 - 1.7mg/dl * however, has been as low as 1.0 - 1.1mg/dl as well * due to hypertension, diabetes, ANTHONY, and age along with her fluctuating fluid/volume status (due to CHF and liver disease) + chronic need for diuretic therapy (3) Septic shock: Code(s): A41.9 - Sepsis, unspecified organism; R65.21 - Severe sepsis with septic shock Status: Acute Assessment and Plan: * based on presentation * suspected source = UTI and possible LE cellulitis * lactic acid has normalized * IV albumin for volume expansion * vasopressor therapy to maintain MAP/blood pressure * follow culture data * on antibiotics (4) Hyponatremia: Code(s): E87.1 - Hypo-osmolality and hyponatremia Status: Acute Assessment and Plan: * chronic issue/problem * baseline sodium runs ~ 127 - 132 in the last few years * multiple issues contributing: * anasarca/fluid retention * CHF * liver cirrhosis * renal insufficiency/CKD * chronic diuretic therapy (loop + thiazide diuretic use) * alcohol use * previous outpatient work-up (TSH, cortisol, SPE, UPE...etc) essentially negative * was on salt tabs + diuretics as an outpatient * likely exacerbated by acute illness * follow trend of repeat sodium levels (5) Anasarca: Code(s): R60.1 - Generalized edema Status: Acute Assessment and Plan: * likely seconday to CHF and liver cirrhosis * attempt diuresis once hemodynamics/BP better * may benefit from IV albumin chased by IV loop diuretics (6) Acute on chronic diastolic (congestive) heart failure: Code(s): I50.33 - Acute on chronic diastolic (congestive) heart failure Status: Acute Assessment and Plan: * Cardiology following * contributing to #5 * attempt diuresis once hemodynamics better (7) Advanced cirrhosis of liver: Code(s): K74.60 - Unspecified cirrhosis of liver Status: Acute Assessment and Plan: * presumably due to alcohol intake * contributing to #5 * Gastroenterology consulted * admission imaging noted (8) Anemia: Code(s): D64.9 - Anemia, unspecified Status: Acute Assessment and Plan: * chronic issue * suspect due to underlying CKD and liver disease * PRBC transfusion per protocol * follow trend of H/H (9) Alcohol dependence: Qualifiers: Substance use status: uncomplicated Qualified Code(s): F10.20 - Alcohol dependence, uncomplicated Code(s): F10.20 - Alcohol dependence, uncomplicated Status: Acute Assessment and Plan: * continue to drink alcohol (but has cut back) * monitor for withdrawal (10) Type 2 diabetes mellitus with diabetic peripheral angiopathy without gangrene: Qualifiers: Diabetes mellitus mcfp insulin use: with mcfp use Qualified Code(s): E11.51 - Type 2 diabetes mellitus with diabetic peripheral angiopathy without gangrene; Z79.4 - prison (current) use of insulin Code(s): E11.51 - Type 2 diabetes mellitus with diabetic peripheral angiopathy without gangrene Status: Acute Assessment and Plan: * follow accu-cheks * glycemic control per national investigative producer/hospitalist I will continue to follow the patient with you while she remains hospitalized and make further recommendations as deemed necessary. Thank you for allowing me to participate in the care of this patient. L History of Present Illness Reason for Consult Consult date: 10/31/24 Reason for consult: acute renal failure (on chronic renal failure) and hyponatremia Chief Complaint Chief complaint: Sepsis History of Present Illness Narrative: The patient is a 69-year-old female with a past medical history as outlined below who presented to [facility] Emergency Room after she slid out of her wheelchair and was unable to get off the ground. When she slid out of her wheelchair, she was able to call 911 and EMS responded. Prior to this event, the patient had been having problems with increasing swelling in her lower extremities which appears to have progressed up until her mid abdomen. She relates this occurred over a span of 3-4 weeks. She also has chronic venous stasis changes in her lower extremities but has also noticed more cracked skin and ulcerations as well. EMS subsequently transferred her to the emergency room for further assessment. Workup and evaluation emergency room noted patient be hypotensive with a systolic BP in the 80s in association with hypoglycemia. She responded to IV dextrose and routine blood work was significant [place] [address], lactic acid of 2.4 with a repeat level of 1.3 and evidence of acute kidney injury/acute renal failure with a creatinine of 2.2 mg/dL. Her BNP was 13,000 as well. Given evidence of volume overload she was given a dose of IV albumin and IV Bumex but as her blood pressure remain low, further diuresis was held and a central line was placed and she was started on vasopressor therapy. Her urinalysis was somewhat suggestive of possible infection as well. After appropriate cultures were obtained, she was started on broad-spectrum antibiotics as subsequently transferred to the intensive care unit for further evaluation therapy. Since her admission to the ICU, she reports improvement in her clinical symptoms but continues to have some discomfort secondary to the extensive swelling in her lower extremities, arms, and abdomen. Her Levophed was briefly discontinued due to stability in her hemodynamics but then had to be restarted when her blood pressure dropped again. Renal consultation was requested due to her acute kidney injury on top of her baseline chronic kidney disease in conjunction with her chronic hyponatremia. The patient is somewhat familiar to me as I follow her in the office for management of her chronic kidney disease and chronic hyponatremia. Her baseline creatinine has fluctuated to extremes in the last year so anywhere from as low as 1.0 mg/dL to as high as 1.7 mg/dL and she seems to average out somewhere around 1.3-1.7 mg/dL at baseline. Her underlying renal insufficiency is thought to be secondary to her hypertension, diabetes, obstructive sleep apnea, vascular disease, and age as well as the necessity of chronic diuretic therapy to maintain her volume status given her CHF and liver disease. As noted on admission, her creatinine was 2.2 mg/dL with repeat labs showing her creatinine up to 2.28 mg/dL. She has no critical electrolyte abnormalities aside from her low-sodium/ hyponatremia which is also somewhat of a chronic issue although she is relatively close to her baseline. Currently, at the time my evaluation, she does not appear to be any acute distress. Review of Systems 2 Review of Systems: As per HPI. [facility] Past Medical History Medical History (Updated 10/31/24 @ 21:19 by Shane Ann MD) Acute on chronic renal failure Renal insufficiency Osteoarthritis ANTHONY (obstructive sleep apnea) Carotid artery disease Alcoholic cirrhosis of liver Diastolic dysfunction Echocardiogram on 10/20/2023 showed normal left ventricular systolic function with an estimated EF of 60 to 65% as well as abnormal diastolic dysfunction. Left-sided carotid artery disease Carotid Doppler ultrasound on 01/14/2021 showed 50 to 69% stenosis in the left internal carotid artery. Chronic anemia Orthostatic hypotension An ongoing issue for the patient. She has had several syncopal episodes over the years leading to falls and fractures. Alcohol abuse Insulin dependent type 2 diabetes mellitus Hemoglobin A1c was 4.8 % on 07/17/2023. Gastroesophageal reflux disease Hypertension Chronic hyponatremia Eczema Periprosthetic fracture of femur following total replacement of hip (01/2020) Non operative treatment. GERD (gastroesophageal reflux disease) Surgical History Surgical History Status post open reduction with internal fixation of fracture (05/30/21) ORIF of comminuted intra-articular fracture of the distal left femur, done at [facility]. History of hysterectomy (2005) Due to uterine fibroids and endometriosis. History of bilateral cataract extraction History of lumbar surgery (2005) L1-L3. History of right hip replacement (2005) Per Dr. Curiel in [place]. Family History Family History Father Heart attack Mother Diabetes mellitus COPD (chronic obstructive pulmonary disease) Hypertension Afib Sibling Amputation above knee Diabetes mellitus Father , At age 50 Acute myocardial infarction Sibling , At age 50 Pancreatic cancer Social History Social History Social History: The patient lives in her own home in [place]. She has been twice, her 1st and she has since her 2nd . She has no children. She moved to this area within the last couple of years from [place] to be close to her 3 remaining siblings. She worked from home for a a [employer] doing [email or web address] and she has a master's degree in statistics. She has recently retired.She smoked up to 2 packs of cigarettes a day before quitting in 2005. She drinks 2 mixed drinks a day, each containing a shot of vodka which equals out to about 1 L to 1.7 L of vodka a week. She denies illicit substance use. Surrogate decision maker: Miladys Jensen, sister. Code status: Full code. Smoking packs per day: 2 Smoking cigarettes per day: 40.0 Years smoked: 30 Smoking pack-years: 60.00 Smoking status: Former smoker Tobacco type: cigarettes Smokeless tobacco user: chewing tobacco Second hand tobacco smoke exposure: Yes Alcohol intake: current Drinks per week: 14 Substance use type: does not use Do You Feel Safe in your Home?: Yes Lack of Transportation: No Lack of Food: Never True Current Housing: I Have Housing Concerned About Future Housing: No Difficulty Paying Gas/Electric Bills: No Difficulty Paying for Meds: No Currently Unemployed: No Education: Master's Degree or Higher Difficulty w/ Childcare or Family Care: No Living arrangements: alone Occupation/Education: retired Gender identity (if verbalized by the patient): Female Sexual Orientation (if Verbalized by the Patient): Straight or Heterosexual Spiritual care concerns: No Meds Home Medications and Allergies Home Medications ?Medication ?Instructions ?Recorded ?Confirmed ?Type fluticasone propionate 50 1 spray intranasal DAILY PRN 08/16/20 10/31/24 History mcg/actuation nasal allergies spray,suspension thiamine HCl (vitamin B1) 100 mg 100 mg PO QAM #30 tabs 08/18/20 10/31/24 Rx tablet (Vitamin B-1) riczxuwceuro-Km-qced-minerals 1 tablet PO DAILY #30 tabs 01/16/21 10/31/24 Rx (Multiple Vitamin, Womens tablet) mecobalamin (vitamin B12) 1,000 3,000 mcg PO DAILY 05/13/21 10/31/24 History mcg chewable tablet pyridoxine (vitamin B6) 100 mg 100 mg PO DAILY 05/13/21 10/31/24 History tablet magnesium oxide 400 mg (241.3 mg 250 mg PO QAM 06/06/21 10/31/24 History magnesium) tablet blood sugar diagnostic #360 ea 10/31/22 10/31/24 Rx empagliflozin 10 mg tablet 10 mg PO DAILY #30 tabs 10/26/23 10/31/24 Rx (Jardiance) spironolactone 25 mg tablet 25 mg PO QAM #30 tabs 10/26/23 10/31/24 Rx alendronate 70 mg tablet 70 mg PO WEEKLY #12 tabs 12/12/23 10/31/24 Rx Humalog KwikPen Insulin 100 3 unit (0.03 mL) subcut TID #9 mL 04/02/24 10/31/24 Rx unit/mL subcutaneous (insulin lispro) atorvastatin 10 mg tablet 10 mg PO QAM #90 tabs 06/10/24 10/31/24 Rx labetalol 100 mg tablet 100 mg PO BID #60 tabs 06/10/24 10/31/24 Rx ascorbate calcium (vitamin C) 500 500 mg PO DAILY 06/20/24 10/31/24 History mg tablet aspirin 81 mg tablet,delayed 81 mg PO DAILY 06/20/24 10/31/24 History release bumetanide 1 mg tablet 0.5 mg PO BID 06/20/24 10/31/24 History folic acid 800 mcg tablet 0.8 mg PO DAILY 06/20/24 10/31/24 History tacrolimus 0.03 % topical ointment 1 applic topical BID 08/06/24 10/31/24 History calcitriol 0.25 mcg capsule 0.25 mcg PO 4XW #16 caps 08/23/24 10/31/24 Rx pen needle, diabetic 32 gauge x #360 ea 09/11/24 10/31/24 Rx 5/32 (BD Muriel 2nd Gen Pen Needle) blood-glucose sensor (Dexcom G7 #3 ea 09/13/24 10/31/24 Rx Sensor device) potassium chloride 10 mEq 10 meq PO DAILY #90 caps 09/30/24 10/31/24 Rx capsule,extended release sodium chloride 1,000 mg soluble See Rx Instructions .Route 10/17/24 10/31/24 Rx tablet .COMPLEX #90 tabs insulin glargine 100 unit/mL (3 See Rx Instructions .Route 01/10/25 01/16/25 Rx mL) subcutaneous pen (Lantus .COMPLEX #15 mL Solostar U-100 Insulin) acyclovir 5 % topical cream 1 applic topical DAILY #5 grams 10/26/24 10/31/24 Rx (Zovirax) valacyclovir 1 gram tablet 1,000 mg PO Q8H #24 tabs 10/26/24 10/31/24 Rx metolazone 2.5 mg tablet 2.5 mg PO DAILY 10/31/24 10/31/24 History Allergies Allergy/AdvReac Type Severity Reaction Status Date / Time codeine AdvReac Unknown Headache Verified 10/22/24 07:34 Vital Signs Vital Signs Temp Pulse Resp BP Pulse Ox O2 Del Method 10/31/24 14:00 104 H 113/60 10/31/24 13:15 101 H 101/63 10/31/24 12:15 97 90/58 L 10/31/24 12:00 100 99/60 L 10/31/24 11:45 103 H 99/53 L 10/31/24 11:30 100 123/63 10/31/24 11:15 101 H 106/52 L 10/31/24 11:00 102 H 127/53 L 10/31/24 10:45 93 Room Air 10/31/24 10:45 102 H 124/58 L 10/31/24 10:30 102 H 112/58 L 10/31/24 10:15 100 112/59 L 10/31/24 10:00 99.7 F H 96 18 113/57 L 94 10/31/24 10:00 96 113/57 L 10/31/24 09:45 97 107/61 10/31/24 09:30 97 89/51 L 10/31/24 09:20 97 88/48 L 10/31/24 08:45 98 107/54 L 10/31/24 08:30 98 99/46 L 10/31/24 08:17 99 130/53 L 10/31/24 08:06 98 102/54 L 10/31/24 08:00 99.8 F H 98 16 102/54 L 94 10/31/24 07:46 97 106/53 L 10/31/24 07:30 97 108/52 L 10/31/24 07:15 98 108/50 L 10/31/24 07:00 99 107/53 L 10/31/24 06:44 Room Air 10/31/24 06:00 98 10/31/24 06:00 100 F H 98 24 H 113/50 L 93 10/31/24 06:00 100 113/50 L 10/31/24 05:39 88 18 110/48 L 97 10/31/24 05:38 96 10/31/24 05:36 88 18 110/48 L 97 10/31/24 03:22 94 14 91/53 L 98 10/31/24 03:20 99 15 109/51 L 99 10/31/24 03:14 97 91/49 L 10/31/24 02:44 99 14 110/61 98 10/31/24 01:32 94 16 91/50 L 99 10/30/24 23:43 93 18 88/52 L 100 10/30/24 23:23 98 Room Air 10/30/24 22:45 98.5 F 104 H 20 98/67 L 100 Room Air Exam 2 Narrative: GENERAL APPEARANCE: elderly but well developed well nourished female in no acute distress HEENT: normocephalic, atraumatic, normal conjunctiva and sclera, nares patient NECK: no lymphadenopathy, thyromegaly, or JVD MOUTH: normal lips, teeth, and gums CARDIOVASCULAR: RRR, normal S1 and S2, no rub detected RESPIRATORY: coarse breath sounds; decreased at bases ABDOMEN: distended with decreased bowel sounds present EXTREMITIES: no evidence of cyanosis, clubbing, 2+ chronic edema NEUROLOGICAL: alert and oriented x 3; CN II - XII intact bilaterally; no focal deficits noted SKIN: shingles rash on right abdomen; cracking skin with ulcerations over LEs Results Lab Results 10/31/24 08:15 10/31/24 08:15 Lab results: Most recent lab results ABG pH 7.471 (7.350-7.450) H 10/30/24 23:13 ABG pCO2 25.9 mmHg (35.0-45.0) L 10/30/24 23:13 ABG pO2 83.0 mmHg (80.0-100.0) 10/30/24 23:13 ABG HCO3 18.5 mEq/l (22.0-26.0) L 10/30/24 23:13 ABG O2 Saturation 97.0 % (95.0-100.0) 10/30/24 23:13 Calcium 8.2 mg/dL (8.4-10.2) L 10/31/24 08:15 Phosphorus 4.5 mg/dL (2.5-4.5) 10/31/24 08:15 Magnesium 2.1 mg/dL (1.6-2.3) 10/31/24 08:15 Urine Creatinine 99.1 mg/dL 10/31/24 08:08
[2024-10-31] MEDS: LACTATED RINGERS 1,000 ML 75 ML IV CONT (15:16)
--- NOTE | 2024-10-31 16:20 | P.CONGI_ITS ---
Assessment and Plan Assessment and plan (1) Alcoholic liver disease: Code(s): K70.9 - Alcoholic liver disease, unspecified Status: Chronic Assessment and Plan: MELDNA score 27 she is here with CATHRYN, septic shock and admitted to icu levophed to keep MAP 65 on iv albumin still drinking alcohol nutrition support, thiamine, monitor for withdrawal had esophageal varices, last egd 08/2023, no s/o gib but monitor (2) Cellulitis: Code(s): L03.90 - Cellulitis, unspecified Status: Acute Assessment and Plan: on abx (3) Septic shock: Code(s): A41.9 - Sepsis, unspecified organism; R65.21 - Severe sepsis with septic shock Status: Acute Assessment and Plan: 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 (4) Shingles: Code(s): B02.9 - Zoster without complications Status: Acute (5) Acute on chronic renal failure: Code(s): N17.9 - Acute kidney failure, unspecified; N18.9 - Chronic kidney disease, unspecified Status: Acute Assessment and Plan: probably from sepsis, ATN s/p iv albumin, levophed monitor (6) Hyponatremia: Code(s): E87.1 - Hypo-osmolality and hyponatremia Status: Acute Assessment and Plan: 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 GI Consult Note Consult date/time: 10/31/24 16:20 Reason for consult: cirrhosis, sepsis HPI: Lou Islas is a 69 year old female with past medical history of renal insufficiency baseline creatinine 1.3-1.4, obstructive sleep apnea, carotid artery disease, diastolic dysfunction, chronic anemia, orthostatic hypotension, alcohol abuse with cirrhosis, insulin-dependent diabetes, essential hypertension, chronic hyponatremia presented the ED on 10/31/2024 after she called the EMS with generalized weakness and after falling to floor, she also noted edema and increased swelling of her lower extremities (she has known chronic ulcerations her lower extremities). ER evaluation found to be hypotensive, also hypoglycemic with a blood sugar of 63 and was given dextrose. Patient's white count in the ER was 30,000, initial lactic was 2.4 and repeat was 1.3, bili 1.9, inr 1.3. Creatinine was 2.2. [place] [address]. Patient was given Bumex and albumin. Central line was inserted and patient was started on Levophed. She was transferred to the ICU for further management. She has seen Dr Torres for alcoholic cirrhosis, she is still drinking 3 shots vodka daily, last EGD 08/2023 noted to have EV that required banding x2. Review of Systems 2 Constitutional: Constitutional: Reports lethargy Eyes: Eyes: Denies blurry vision ENT: Reports Normal hearing present Cardiovascular: Cardiovascular: Denies chest pain Respiratory: Respiratory: Denies chest congestion Gastrointestinal: Gastrointestinal: Denies nausea Musculoskeletal: Musculoskeletal: Denies neck pain Integumentary/Breasts: Skin/Breast: Reports rash Neurologic: Denies Abnormal speech present Psychiatric: Psychiatric: Denies behavioral changes [facility] Past Medical History Medical History (Updated 10/31/24 @ 16:26 by Laith Ricks MD) Acute on chronic renal failure Renal insufficiency Osteoarthritis ANTHONY (obstructive sleep apnea) Carotid artery disease Alcoholic cirrhosis of liver Diastolic dysfunction Echocardiogram on 10/20/2023 showed normal left ventricular systolic function with an estimated EF of 60 to 65% as well as abnormal diastolic dysfunction. Left-sided carotid artery disease Carotid Doppler ultrasound on 01/14/2021 showed 50 to 69% stenosis in the left internal carotid artery. Chronic anemia Orthostatic hypotension An ongoing issue for the patient. She has had several syncopal episodes over the years leading to falls and fractures. Alcohol abuse Insulin dependent type 2 diabetes mellitus Hemoglobin A1c was 4.8 % on 07/17/2023. Gastroesophageal reflux disease Hypertension Chronic hyponatremia Eczema Periprosthetic fracture of femur following total replacement of hip (01/2020) Non operative treatment. GERD (gastroesophageal reflux disease) Surgical History Surgical History Status post open reduction with internal fixation of fracture (05/30/21) ORIF of comminuted intra-articular fracture of the distal left femur, done at [facility]. History of hysterectomy (2005) Due to uterine fibroids and endometriosis. History of bilateral cataract extraction History of lumbar surgery (2005) L1-L3. History of right hip replacement (2005) Per Dr. Curiel in [place]. Family History Family History Father Heart attack Mother Diabetes mellitus COPD (chronic obstructive pulmonary disease) Hypertension Afib Sibling Amputation above knee Diabetes mellitus Father , At age 50 Acute myocardial infarction Sibling , At age 50 Pancreatic cancer Social History Social History Social History: The patient lives in her own home in [place]. She has been twice, her 1st and she has since her 2nd . She has no children. She moved to this area within the last couple of years from [place] to be close to her 3 remaining siblings. She worked from home for a [employer] doing [employer] and she has a master's degree in statistics. She has recently retired.She smoked up to 2 packs of cigarettes a day before quitting in 2005. She drinks 2 mixed drinks a day, each containing a shot of vodka which equals out to about 1 L to 1.7 L of vodka a week. She denies illicit substance use. Surrogate decision maker: Miladys Jensen, sister. Code status: Full code. Smoking packs per day: 2 Smoking cigarettes per day: 40.0 Years smoked: 30 Smoking pack-years: 60.00 Smoking status: Former smoker Tobacco type: cigarettes Smokeless tobacco user: chewing tobacco Second hand tobacco smoke exposure: Yes Alcohol intake: current Drinks per week: 14 Substance use type: does not use Do You Feel Safe in your Home?: Yes Lack of Transportation: No Lack of Food: Never True Current Housing: I Have Housing Concerned About Future Housing: No Difficulty Paying Gas/Electric Bills: No Difficulty Paying for Meds: No Currently Unemployed: No Education: Master's Degree or Higher Difficulty w/ Childcare or Family Care: No Living arrangements: alone Occupation/Education: retired Gender identity (if verbalized by the patient): Female Sexual Orientation (if Verbalized by the Patient): Straight or Heterosexual Spiritual care concerns: No Meds Home Medications and Allergies Home Medications ?Medication ?Instructions ?Recorded ?Confirmed ?Type fluticasone propionate 50 1 spray intranasal DAILY PRN 08/16/20 10/31/24 History mcg/actuation nasal allergies spray,suspension thiamine HCl (vitamin B1) 100 mg 100 mg PO QAM #30 tabs 08/18/20 10/31/24 Rx tablet (Vitamin B-1) tlpnmqvuhrrm-[id number]-minerals 1 tablet PO DAILY #30 tabs 04/03/21 01/16/25 Rx (Multiple Vitamin, Womens tablet) mecobalamin (vitamin B12) 1,000 3,000 mcg PO DAILY 05/13/21 10/31/24 History mcg chewable tablet pyridoxine (vitamin B6) 100 mg 100 mg PO DAILY 05/13/21 10/31/24 History tablet magnesium oxide 400 mg (241.3 mg 250 mg PO QAM 06/06/21 10/31/24 History magnesium) tablet blood sugar diagnostic #360 ea 10/31/22 10/31/24 Rx empagliflozin 10 mg tablet 10 mg PO DAILY #30 tabs 10/26/23 10/31/24 Rx (Jardiance) spironolactone 25 mg tablet 25 mg PO QAM #30 tabs 10/26/23 10/31/24 Rx alendronate 70 mg tablet 70 mg PO WEEKLY #12 tabs 12/12/23 10/31/24 Rx Humalog KwikPen Insulin 100 3 unit (0.03 mL) subcut TID #9 mL 04/02/24 10/31/24 Rx unit/mL subcutaneous (insulin lispro) atorvastatin 10 mg tablet 10 mg PO QAM #90 tabs 06/10/24 10/31/24 Rx labetalol 100 mg tablet 100 mg PO BID #60 tabs 06/10/24 10/31/24 Rx ascorbate calcium (vitamin C) 500 500 mg PO DAILY 06/20/24 10/31/24 History mg tablet aspirin 81 mg tablet,delayed 81 mg PO DAILY 06/20/24 10/31/24 History release bumetanide 1 mg tablet 0.5 mg PO BID 06/20/24 10/31/24 History folic acid 800 mcg tablet 0.8 mg PO DAILY 06/20/24 10/31/24 History tacrolimus 0.03 % topical ointment 1 applic topical BID 08/06/24 10/31/24 History calcitriol 0.25 mcg capsule 0.25 mcg PO 4XW #16 caps 08/23/24 10/31/24 Rx pen needle, diabetic 32 gauge x #360 ea 09/11/24 10/31/24 Rx 5/32 (BD Muriel 2nd Gen Pen Needle) blood-glucose sensor (Dexcom G7 #3 ea 09/13/24 10/31/24 Rx Sensor device) potassium chloride 10 mEq 10 meq PO DAILY #90 caps 09/30/24 10/31/24 Rx capsule,extended release sodium chloride 1,000 mg soluble See Rx Instructions .Route 10/17/24 10/31/24 Rx tablet .COMPLEX #90 tabs insulin glargine 100 unit/mL (3 See Rx Instructions .Route 10/25/24 10/31/24 Rx mL) subcutaneous pen (Lantus .COMPLEX #15 mL Solostar U-100 Insulin) acyclovir 5 % topical cream 1 applic topical DAILY #5 grams 10/26/24 10/31/24 Rx (Zovirax) valacyclovir 1 gram tablet 1,000 mg PO Q8H #24 tabs 10/26/24 10/31/24 Rx metolazone 2.5 mg tablet 2.5 mg PO DAILY 10/31/24 10/31/24 History Allergies Allergy/AdvReac Type Severity Reaction Status Date / Time codeine AdvReac Unknown Headache Verified 10/22/24 07:34 Vital Signs Vital Signs - 24 hr 10/30/24 22:45 10/30/24 23:23 10/30/24 23:43 Temperature 98.5 F Pulse Rate 104 H 93 Respiratory Rate 20 18 Blood Pressure 98/67 L 88/52 L Pulse Oximetry 100 98 100 Oxygen Delivery Room Air Room Air 10/31/24 01:32 10/31/24 02:44 10/31/24 03:14 Temperature Pulse Rate 94 99 97 Respiratory Rate 16 14 Blood Pressure 91/50 L 110/61 91/49 L Pulse Oximetry 99 98 Oxygen Delivery 10/31/24 03:20 10/31/24 03:22 10/31/24 05:36 Temperature Pulse Rate 99 94 88 Respiratory Rate 15 14 18 Blood Pressure 109/51 L 91/53 L 110/48 L Pulse Oximetry 99 98 97 Oxygen Delivery 10/31/24 05:38 10/31/24 05:39 10/31/24 06:00 Temperature Pulse Rate 96 88 100 Respiratory Rate 18 Blood Pressure 110/48 L 113/50 L Pulse Oximetry 97 Oxygen Delivery 10/31/24 06:00 10/31/24 06:00 10/31/24 06:44 Temperature 100 F H Pulse Rate 98 98 Respiratory Rate 24 H Blood Pressure 113/50 L Pulse Oximetry 93 Oxygen Delivery Room Air 10/31/24 07:00 10/31/24 07:15 10/31/24 07:30 Temperature Pulse Rate 99 98 97 Respiratory Rate Blood Pressure 107/53 L 108/50 L 108/52 L Pulse Oximetry Oxygen Delivery 10/31/24 07:46 10/31/24 08:00 10/31/24 08:06 Temperature 99.8 F H Pulse Rate 97 98 98 Respiratory Rate 16 Blood Pressure 106/53 L 102/54 L 102/54 L Pulse Oximetry 94 Oxygen Delivery 10/31/24 08:17 10/31/24 08:30 10/31/24 08:45 Temperature Pulse Rate 99 98 98 Respiratory Rate Blood Pressure 130/53 L 99/46 L 107/54 L Pulse Oximetry Oxygen Delivery 10/31/24 09:20 10/31/24 09:30 10/31/24 09:45 Temperature Pulse Rate 97 97 97 Respiratory Rate Blood Pressure 88/48 L 89/51 L 107/61 Pulse Oximetry Oxygen Delivery 10/31/24 10:00 10/31/24 10:00 10/31/24 10:15 Temperature 99.7 F H Pulse Rate 96 96 100 Respiratory Rate 18 Blood Pressure 113/57 L 113/57 L 112/59 L Pulse Oximetry 94 Oxygen Delivery 10/31/24 10:30 10/31/24 10:45 10/31/24 10:45 Temperature Pulse Rate 102 H 102 H Respiratory Rate Blood Pressure 112/58 L 124/58 L Pulse Oximetry 93 Oxygen Delivery Room Air 10/31/24 11:00 10/31/24 11:15 10/31/24 11:30 Temperature Pulse Rate 102 H 101 H 100 Respiratory Rate Blood Pressure 127/53 L 106/52 L 123/63 Pulse Oximetry Oxygen Delivery 10/31/24 11:45 10/31/24 12:00 10/31/24 12:15 Temperature Pulse Rate 103 H 100 97 Respiratory Rate Blood Pressure 99/53 L 99/60 L 90/58 L Pulse Oximetry Oxygen Delivery 10/31/24 13:15 10/31/24 14:00 10/31/24 15:00 Temperature Pulse Rate 101 H 104 H 100 Respiratory Rate Blood Pressure 101/63 113/60 103/57 L Pulse Oximetry Oxygen Delivery 10/31/24 15:15 Temperature Pulse Rate 102 H Respiratory Rate Blood Pressure 105/58 L Pulse Oximetry Oxygen Delivery Exam 2 Narrative: General: Pleasant female in no acute distress HEENT:? Pupils equal and reactive, sclerae is clear, moist oral mucosa Neck:? Supple Respiratory:? Coarse breath sounds bilaterally, decreased at bases, adequate air entry Cardiac:? S1-S2 is normal, regular rate and rhythm Abdomen:? Abdomen is distended, anasarca, hypoactive bowel sounds, nontender, Extremities:? edematous, decreased pedal pulses Neuro:? Patient is awake, alert, oriented x2, follows simple command Skin:?Shingles rash over the right side of the abdomen, erythematous and warm, skin cracking with ulceration Psych:? Normal mentation and affect Results Labs 10/31/24 08:15 10/31/24 08:15 Labs: Short CBC 10/30/24 10/31/24 Range/Units 23:17 08:15 WBC 30.6 H 24.3 H (4.5-10.0) K/mm3 Hgb 9.7 L 8.4 L (12.0-15.0) g/dL Hct 29.4 L 25.0 L (37.0-47.0) % Plt Count 152 127 L (150-375) k/mm3 BMP 10/30/24 10/31/24 23:17 08:15 Sodium 126 L 126 L Potassium 5.0 3.9 Chloride 95 L 97 L Carbon Dioxide 22 22 BUN 43 H D 43 H Creatinine 2.23 H 2.28 H Glucose 60 L 101 Calcium 8.7 8.2 L Cardiac Enzymes 10/30/24 10/31/24 10/31/24 Range/Units 23:17 02:25 08:15 Total Creatine Kinase 271 H (30-135) U/L Troponin I < 0.012 < 0.012 (0.000-0.034) ng/mL Liver Function 10/30/24 10/31/24 Range/Units 23:17 08:15 Total Bilirubin 1.9 H 1.9 H (0.2-1.3) mg/dL AST 50 H 55 H (14-36) U/L ALT 27 24 (6-35) U/L Alkaline Phosphatase 342 H 269 H (38-126) U/L Albumin 3.0 L 2.6 L (3.5-5.1) g/dL Urine 10/31/24 Range/Units 02:16 Urine Color Dark yellow (Yellow) Urine Appearance Cloudy H (Clear) Urine pH 5.0 (5.0-9.0) Ur Specific [place] 1.015 (1.001-1.035) Urine Protein Negative (Negative) mg/dL Urine Glucose (UA) Trace H (Negative) mg/dL
[2024-10-31 16:37] LABS: Glucose Point of Care 181 mg/dl (65-105)
[2024-10-31] MEDS: PANTOPRAZOLE 40 MG TABLET PO (18:49)
[2024-10-31] MEDS: CALCIUM CARBONATE (TUMS) 500 MG (200 MG ELEMENTAL) PO (18:49)
[2024-10-31] MEDS: INSULIN ASPART (*BKC) 100 UNITS/ML SUB-Q (21:12)
[2024-10-31] MEDS: HEPARIN SODIUM 5,000 UNITS/ML VIAL 5000 UNITS SUB-Q (21:12)
[2024-10-31 21:35] LABS: Glucose Point of Care 220 mg/dl (65-105)
[2024-11-01] VITALS (14 sets, daily range): BP systolic 95–116; BP diastolic 53–71; PULSE 63–103; RESP 9–17; TEMP 35.8–36.6; O2SAT 96–100
[2024-11-01 00:29] LABS: Vancomycin Trough 11.9 ug/mL (10.0-20.0)
[2024-11-01] MEDS: GABAPENTIN 300 MG CAPSULE PO (00:48)
[2024-11-01] MEDS: VANCOMYCIN 1,500 MG/NS 500 ML 1,500 MG/500 ML BAG 250 MG IVPB (00:51)
[2024-11-01] MEDS: HYDROmorphone HCL INJ (*CRX) 1 MG/ML SYR (02:45)
[2024-11-01] MEDS: ALBUMIN HUMAN 25% 25 GM/100 ML 100 ML IVPB ×4 (02:50→20:47)
[2024-11-01 05:33] LABS: Basophils Percent Auto 0.3 % (0.2-1.2); Eosinophils Absolute Auto 0.1 K/mm3 (0-0.3); Eosinophils Percent Auto 1.1 % (0-4.4); Hematocrit 23.9 % (37.0-47.0); Hemoglobin 7.9 g/dL (12.0-15.0); Immature Granulocyte Absolute 0.13 K/mm3 (0.00-0.031); Immature Granulocyte Percent A 1.1 % (0-0.5); Lymphocytes Absolute Auto 1.04 K/mm3 (0.9-3.2); Lymphocytes Percent Auto 9.1 % (18.3-44.2); Mean Corpuscular HGB Conc 33.1 g/dl (32-36); Mean Corpuscular Hemoglobin 32.9 pg (26-34); Mean Corpuscular Volume 99.6 fl (80-100); Mean Platelet Volume 8.8 fl (7.4-10.4); Monocytes Absolute Auto 0.8 K/mm3 (0.1-0.6); Monocytes Percent Auto 7.3 % (2.6-8.5); Neutrophils Absolute Auto 9.2 K/mm3 (1.3-6.7); Neutrophils Percent Auto 81.1 % (45.5-73.1); Platelet Count Result 100 k/mm3 (150-375); Red Cell Distribution Width 14.5 % (11.5-14.5); White Blood Count 11.4 K/mm3 (4.5-10.0)
[2024-11-01 05:37] LABS: Platelet Estimate Decreased (Adequate)
[2024-11-01 05:40] LABS: Schistocytes None Seen
[2024-11-01 05:43] LABS: Lactic Acid Reflex 0.8 mmol/L (0.7-2.0)
[2024-11-01 05:44] LABS: Alanine Aminotransferase 26 U/L (6-35); Albumin Level 3.4 g/dL (3.5-5.1); Alkaline Phosphatase 243 U/L (38-126); Anion Gap 11 mmol/L (4-12); Aspartate Amino Transferase 83 U/L (14-36); Bilirubin,Total 1.9 mg/dL (0.2-1.3); Blood Urea Nitrogen 43 mg/dL (7-17); Calcium 8.9 mg/dL (8.4-10.2); Carbon Dioxide 21 mmol/L (22-30); Chloride 99 mmol/L (98-107); Creatine Kinase 176 U/L (30-135); Estimated CRCL calculation 22 ml/min; Estimated Glomerular Filt Rate 20; Glucose 144 mg/dL (65-110); Phosphorus 4.3 mg/dL (2.5-4.5); Potassium 3.5 mmol/L (3.4-5.0); Sodium 131 mmol/L (137-145)
[2024-11-01 05:46] LABS: INR 1.6
[2024-11-01 06:05] LABS: Ammonia 23 umol/L (9-30)
[2024-11-01] MEDS: PIPERACILLIN/TAZ 2.25G/NS 50ML 2.25 GM/50 ML BAG IVPB ×2 (06:11→11:41)
[2024-11-01 07:44] LABS: Glucose Point of Care 144 mg/dl (65-105)
[2024-11-01] MEDS: THIAMINE HCL 200 MG/2 ML VIAL IV PUSH (09:37)
[2024-11-01] MEDS: FOLIC ACID 1 MG/0.2 ML INJ IV PUSH (09:37)
--- NOTE | 2024-11-01 10:17 | P.PNNP_ITS ---
Progress Note: A&P Assessment and Plan (1) CATHRYN (acute kidney injury): Code(s): N17.9 - Acute kidney failure, unspecified Status: Acute Assessment and Plan: * as noted on admission * suspect multifactorial: * prerenal factors * Sepsis with Gram-negative bacilli * hemodynamic instability/shock * BP medications + diuretics prior to admission * other (?) * evaluation to date noted: * renal U/S + CT A/P without obstruction * urine eosinophils negative * urine electrolytes prerenal * CPK mildly elevated (bet not enough to affect kidney function) * Positive blood cultures but negative urine culture * Patient has swelling but intravascular volume depletion. She is getting albumin. * Continue supportive care (2) Chronic kidney disease, stage 3: Code(s): N18.30 - Chronic kidney disease, stage 3 unspecified Status: Chronic Assessment and Plan: * creatinine has fluctuated in the last several years * seems to average out around 1.3 - 1.7mg/dl * however, has been as low as 1.0 - 1.1mg/dl as well * due to hypertension, diabetes, ANTHONY, and age along with her fluctuating fluid/volume status (due to CHF and liver disease) + chronic need for diuretic therapy (3) Septic shock: Code(s): A41.9 - Sepsis, unspecified organism; R65.21 - Severe sepsis with septic shock Status: Acute Assessment and Plan: * based on presentation * suspected source = LE cellulitis * lactic acid has normalized * IV albumin for volume expansion * vasopressor therapy to maintain MAP/blood pressure but currently this has been held. * Initial blood cultures positive for Gram-negative bacilli. * on Zosyn plus vancomycin. Can we change the Zosyn to a cephalosporin because of the kidney issues question (4) Hyponatremia: Code(s): E87.1 - Hypo-osmolality and hyponatremia Status: Acute Assessment and Plan: * chronic issue/problem * baseline sodium runs ~ 127 - 132 in the last few years * multiple issues contributing: * anasarca/fluid retention * CHF * liver cirrhosis * renal insufficiency/CKD * chronic diuretic therapy (loop + thiazide diuretic use) * alcohol use * previous outpatient work-up (TSH, cortisol, SPE, UPE...etc) essentially negative * was on salt tabs + diuretics as an outpatient * Sodium level is improved to 131 today. (5) Anasarca: Code(s): R60.1 - Generalized edema Status: Acute Assessment and Plan: * likely seconday to CHF and liver cirrhosis * attempt diuresis once hemodynamics/BP better * Getting IV albumin (6) Acute on chronic diastolic (congestive) heart failure: Code(s): I50.33 - Acute on chronic diastolic (congestive) heart failure Status: Acute Assessment and Plan: * Cardiology following * contributing to #5 * attempt diuresis once hemodynamics better (7) Advanced cirrhosis of liver: Code(s): K74.60 - Unspecified cirrhosis of liver Status: Acute Assessment and Plan: * presumably due to alcohol intake * Seen on CT abdomen * contributing to #5 * Gastroenterology consulted \\ (8) Anemia: Code(s): D64.9 - Anemia, unspecified Status: Acute Assessment and Plan: * chronic issue * Hemoglobin is dropped * Renal failure may be contributing. 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 She recently had some Dilaudid. No shortness of breath Review of Systems Cardiovascular: Cardiovascular: Reports no additional cardiovascular complaints Respiratory: Respiratory: Reports no additional respiratory complaints Gastrointestinal: Gastrointestinal: Reports no additional gastrointestinal complaints Genitourinary: Genitourinary: Reports no additional female genitourinary complaints Exam Narrative: WDWN in NAD a bit sleepy from recent medicine. skin no rash head ncat lungs clear cor reg no rub abd BS+ nontender and soft ext 2+ bilateral edema. Objective Data Vital Signs Vital Signs: Vital Signs - 24 hr 10/31/24 10:30 10/31/24 10:45 10/31/24 10:45 Temperature Pulse Rate 102 H 102 H Respiratory Rate Blood Pressure 112/58 L 124/58 L Pulse Oximetry 93 Oxygen Delivery Room Air 10/31/24 11:00 10/31/24 11:15 10/31/24 11:30 Temperature Pulse Rate 102 H 101 H 100 Respiratory Rate Blood Pressure 127/53 L 106/52 L 123/63 Pulse Oximetry Oxygen Delivery 10/31/24 11:45 10/31/24 12:00 10/31/24 12:00 Temperature Pulse Rate 103 H 100 101 H Respiratory Rate 20 Blood Pressure 99/53 L 99/60 L Pulse Oximetry 95 Oxygen Delivery Room Air 10/31/24 12:00 10/31/24 12:00 10/31/24 12:15 Temperature 99.8 F H Pulse Rate 102 H 101 H 97 Respiratory Rate 20 Blood Pressure 99/60 L 90/58 L Pulse Oximetry 95 Oxygen Delivery 10/31/24 13:15 10/31/24 14:00 10/31/24 14:00 Temperature Pulse Rate 101 H 104 H 104 H Respiratory Rate Blood Pressure 101/63 113/60 Pulse Oximetry Oxygen Delivery 10/31/24 14:01 10/31/24 15:00 10/31/24 15:15 Temperature 98.8 F Pulse Rate 104 H 100 102 H Respiratory Rate 18 Blood Pressure 113/60 103/57 L 105/58 L Pulse Oximetry 98 Oxygen Delivery 10/31/24 16:00 10/31/24 16:00 10/31/24 16:00 Temperature Pulse Rate 96 102 H 96 Respiratory Rate 17 Blood Pressure 100/52 L Pulse Oximetry 98 Oxygen Delivery Room Air 10/31/24 16:01 10/31/24 17:26 10/31/24 18:00 Temperature 97.9 F Pulse Rate 99 105 H 100 Respiratory Rate 19 Blood Pressure 100/52 L 91/57 L 112/61 Pulse Oximetry 98 Oxygen Delivery 10/31/24 18:00 10/31/24 18:00 10/31/24 20:00 Temperature 97.6 F 97.3 F L Pulse Rate 100 100 101 H Respiratory Rate 18 23 H Blood Pressure 112/61 105/64 Pulse Oximetry 99 99 Oxygen Delivery 10/31/24 20:00 10/31/24 20:00 10/31/24 20:00 Temperature Pulse Rate 101 H 96 Respiratory Rate Blood Pressure 105/64 Pulse Oximetry 98 Oxygen Delivery Room Air 10/31/24 22:00 10/31/24 22:00 10/31/24 22:23 Temperature Pulse Rate 98 101 H 99 Respiratory Rate 23 H Blood Pressure 113/47 L 113/47 L Pulse Oximetry 100 Oxygen Delivery 10/31/24 23:51 11/01/24 00:00 11/01/24 00:00 Temperature 97.4 F L Pulse Rate 97 95 Respiratory Rate 22 H Blood Pressure 110/58 L 116/53 L Pulse Oximetry 99 100 Oxygen Delivery Room Air 11/01/24 00:00 11/01/24 02:00 11/01/24 02:00 Temperature Pulse Rate 96 92 92 Respiratory Rate Blood Pressure 109/70 Pulse Oximetry Oxygen Delivery 11/01/24 02:00 11/01/24 04:00 11/01/24 04:00 Temperature Pulse Rate 92 88 88 Respiratory Rate 17 12 Blood Pressure 109/70 103/63 103/63 Pulse Oximetry 96 97 Oxygen Delivery 11/01/24 04:00 11/01/24 04:00 11/01/24 06:00 Temperature Pulse Rate 87 88 Respiratory Rate Blood Pressure Pulse Oximetry 97 Oxygen Delivery Room Air 11/01/24 06:00 11/01/24 08:00 11/01/24 10:00 Temperature 97.3 F L 96.7 F L 96.4 F L Pulse Rate 88 85 86 Respiratory Rate 12 10 L 9 L Blood Pressure 107/59 L 106/67 116/57 L Pulse Oximetry 97 99 96 Oxygen Delivery Intake/Output Intake/Output: Intake & Output 10/29/24 10/30/24 10/31/24 11/01/24 23:59 23:59 23:59 23:59 Intake Total 2163.4 150 Output Total 250 325 Balance 1913.4 -175 Meds/Results Medications: Active Medications Generic Name Dose Route Start Last Admin Trade Name Freq PRN Reason Stop Dose Admin Calcium Carbonate 200 mg 10/31/24 18:31 10/31/24 18:49 Calcium Carbonate (Tums) 500 Mg (200 Mg Elemental) PO 200 mg Q6H PRN Administration Indigestion Dextrose 12.5 gm 10/31/24 10:36 Dextrose 50% 25 Gm/50 Ml Syringe IV PUSH PRN PRN Hypoglycemia Protocol Folic Acid 1 mg 11/01/24 09:00 11/01/24 09:37 Folic Acid 1 Mg/0.2 Ml Inj IV PUSH 1 mg QAM NEIL Administration Glucagon 1 mg 10/31/24 10:36 Glucagon For Inj 1 Mg Vial IM PRN PRN Hypoglycemia Protocol Glucose 15 gm 10/31/24 10:36 Glucose Oral Gel 15 Gm Of Glucse In 37.5 Gm Tube PO PRN PRN Hypoglycemia Protocol Heparin Sodium (Porcine) 5,000 units 10/31/24 21:00 11/01/24 07:45 Heparin Sodium 5,000 Units/Ml Vial SUB-Q Not Given Q12HR NEIL Piperacillin Sod/Tazobactam Sod 2.25 gm in 50 mls @ 100 mls/hr 10/31/24 06:00 11/01/24 06:11 Zosyn 2.25 Gm/Ns 50 Ml IVPB 100 mls/hr Q6HR NEIL Administration Albumin Human 100 mls @ 60 mls/hr 10/31/24 09:00 11/01/24 09:37 Albutein IVPB 60 mls/hr Q6H NEIL Administration Norepinephrine Bitartrate 8 mg in 250 mls @ 0 mls/hr 10/31/24 09:20 11/01/24 04:00 Levophed 8 Mg/D5w 250 Ml IV CONT 0 mcg/min .Q0M NEIL 0 mls/hr Titration Protocol Dextrose 1,000 mls @ 100 mls/hr 10/31/24 10:36 Dextrose 5% 1,000 Ml IVPB PRN PRN Hypoglycemia Protocol Insulin Aspart 1 - 3 units 10/31/24 21:00 10/31/24 21:12 Insulin Aspart (*Bkc) 100 Units/Ml SUB-Q 1 units HS NEIL Administration Protocol Insulin Aspart 3 - 6 units 10/31/24 12:00 11/01/24 06:31 Insulin Aspart (*Bkc) 100 Units/Ml SUB-Q Not Given TIDWM [facility] Protocol Pantoprazole Sodium 40 mg 10/31/24 18:35 10/31/24 18:49 Pantoprazole 40 Mg Tablet PO 40 mg QAM NEIL Administration Thiamine HCl 200 mg 11/01/24 09:00 11/01/24 09:37 Thiamine Hcl 200 Mg/2 Ml Vial IV PUSH 200 mg QAM NEIL Administration Valacyclovir HCl 1,000 mg 11/01/24 09:00 Valacyclovir Hcl 500 Mg Tablet PO Q24H [facility] Vancomycin HCl 1 each 10/31/24 00:42 Vancomycin For Acute Kidney Injury IVPB PRN PRN Vancomycin Protocol Radiology Results: ITS Impressions Head CT 10/31/24 05:29 Impression: No intracranial hemorrhage, mass, or acute infarct. Atrophy and chronic white matter changes, as above. Cervical Spine CT 10/31/24 05:30 Impression: No fracture or subluxation of the cervical spine. Minimal degenerative change. Small right pleural effusion. Chest/Abdomen/Pelvis CT 10/31/24 05:51 Impression: Small right pleural effusion and minimal left pleural effusion. Small focal groundglass opacity right lung, as above, which could reflect focal pulmonary edema or focal pneumonitis. Cirrhotic liver. Cholelithiasis. Impression fractures of L1, L2, L4, and L5. Extensive soft tissue anasarca changes. Small pericardial effusion with pericardial thickening and calcification. Correlate for constrictive or restrictive pericarditis. Renal Ultrasound 10/31/24 08:38 IMPRESSION: No definite abnormality. Chest X-Ray 11/01/24 06:09 IMPRESSION: 1. Mild pulmonary edema. Labs Labs: Laboratory Results - last 24 hr 10/31/24 10/31/24 10/31/24 12:24 16:35 21:11 WBC RBC Hgb Hct MCV MCH MCHC RDW Plt Count MPV Immature Gran % (Auto) Neut % (Auto) Lymph % (Auto) [place] % (Auto) Eos % (Auto) Baso % (Auto) Lymph # (Auto) [place] # (Auto) Eos # (Auto) Baso # (Auto) Abs Immat Gran (auto) Absolute Neuts (auto) Absolute Nucleated RBC Nucleated RBC % Platelet Estimate Schistocytes PT INR APTT Sodium Potassium Chloride Carbon Dioxide Anion Gap BUN Creatinine Estim Creat Clear Calc Estimated GFR Glucose POC Capillary Glucose 130 H 181 H 220 H Lactic Acid Calcium Phosphorus Magnesium Total Bilirubin AST ALT Alkaline Phosphatase Ammonia Total Creatine Kinase Total Protein Albumin Vancomycin Trough 11/01/24 11/01/24 11/01/24 00:01 05:25 07:36 WBC 11.4 H RBC 2.40 L Hgb 7.9 L Hct 23.9 L MCV 99.6 MCH 32.9 MCHC 33.1 RDW 14.5 Plt Count 100 L MPV 8.8 Immature Gran % (Auto) 1.1 H Neut % (Auto) 81.1 H Lymph % (Auto) 9.1 L [place] % (Auto) 7.3 Eos % (Auto) 1.1 Baso % (Auto) 0.3 Lymph # (Auto) 1.04 [place] # (Auto) 0.8 H Eos # (Auto) 0.1 Baso # (Auto) 0.0 Abs Immat Gran (auto) 0.13 H Absolute Neuts (auto) 9.2 H Absolute Nucleated RBC 0.000 Nucleated RBC % 0.0 Platelet Estimate Decreased Schistocytes None seen PT 20.0 H INR 1.6 APTT 46.0 H Sodium 131 L Potassium 3.5 Chloride 99 Carbon Dioxide 21 L Anion Gap 11 BUN 43 H Creatinine 2.37 H Estim Creat Clear Calc 22 Estimated GFR 20 L Glucose 144 H POC Capillary Glucose 144 H Lactic Acid 0.8 Calcium 8.9 Phosphorus 4.3 Magnesium 2.0 Total Bilirubin 1.9 H AST 83 H ALT 26 Alkaline Phosphatase 243 H Ammonia 23 Total Creatine Kinase 176 H Total Protein 6.0 L Albumin 3.4 L Vancomycin Trough 11.9
--- NOTE | 2024-11-01 11:25 | PM.PNCARD ---
Progress Note: A&P Assessment and Plan (1) Acute on chronic diastolic (congestive) heart failure: Code(s): I50.33 - Acute on chronic diastolic (congestive) heart failure Status: Acute (2) Hyperlipidemia, unspecified: Qualifiers: Hyperlipidemia type: mixed hyperlipidemia Qualified Code(s): E78.2 - Mixed hyperlipidemia Code(s): E78.5 - Hyperlipidemia, unspecified Status: Acute (3) Hypertension: Qualifiers: Hypertension type: primary hypertension Qualified Code(s): I10 - Essential (primary) hypertension Code(s): I10 - Essential (primary) hypertension Status: Acute Plan 69-year-old woman with chronic diastolic heart failure, left carotid stenosis, diabetes mellitus type 2, hyperlipidemia, and CKD stage 3B presented after a fall Acute on chronic diastolic heart failure -Bumex on hold because of hypotension and CATHRYN -continue holding spironolactone -monitor urine output Hypertension -resolved and required albumin with Levophed most likely in setting of sepsis Hyperlipidemia -atorvastatin 10 mg every evening Patient follows Dr. Edmonds in cardiology clinic Subjective Date/time seen: 11/01/24 11:25 Interval history: Cardiology follow up visit She is drowsy this morning because she received dilaudid overnight. She does deny chest pain, shortness of breath. Review of Systems Cardiovascular: Cardiovascular: Reports as per HPI Respiratory: Respiratory: Reports as per HPI Exam Const: General: comfortable HENMT: Mouth: Yes moist mucous membranes Eyes: EOM: EOMs intact bilaterally Neck: Neck: no JVD Resp: Auscultation: rales Cardio: Rate: regular rate Rhythm: regular rhythm GI: Inspection: distended Extrem: Other: Both lower extremities erythematous with chronic skin changes Objective Data Vital Signs Vital Signs: Vital Signs - 24 hr 10/31/24 11:30 10/31/24 11:45 10/31/24 12:00 Temperature Pulse Rate 100 103 H 100 Respiratory Rate Blood Pressure 123/63 99/53 L 99/60 L Pulse Oximetry Oxygen Delivery 10/31/24 12:00 10/31/24 12:00 10/31/24 12:00 Temperature 37.7 C H Pulse Rate 101 H 102 H 101 H Respiratory Rate 20 20 Blood Pressure 99/60 L Pulse Oximetry 95 95 Oxygen Delivery Room Air 10/31/24 12:15 10/31/24 13:15 10/31/24 14:00 Temperature Pulse Rate 97 101 H 104 H Respiratory Rate Blood Pressure 90/58 L 101/63 113/60 Pulse Oximetry Oxygen Delivery 10/31/24 14:00 10/31/24 14:01 10/31/24 15:00 Temperature 37.1 C Pulse Rate 104 H 104 H 100 Respiratory Rate 18 Blood Pressure 113/60 103/57 L Pulse Oximetry 98 Oxygen Delivery 10/31/24 15:15 10/31/24 16:00 10/31/24 16:00 Temperature Pulse Rate 102 H 96 102 H Respiratory Rate 17 Blood Pressure 105/58 L Pulse Oximetry 98 Oxygen Delivery Room Air 10/31/24 16:00 10/31/24 16:01 10/31/24 17:26 Temperature 36.6 C Pulse Rate 96 99 105 H Respiratory Rate 19 Blood Pressure 100/52 L 100/52 L 91/57 L Pulse Oximetry 98 Oxygen Delivery 10/31/24 18:00 10/31/24 18:00 10/31/24 18:00 Temperature 36.4 C Pulse Rate 100 100 100 Respiratory Rate 18 Blood Pressure 112/61 112/61 Pulse Oximetry 99 Oxygen Delivery 10/31/24 20:00 10/31/24 20:00 10/31/24 20:00 Temperature 36.3 C L Pulse Rate 101 H 101 H Respiratory Rate 23 H Blood Pressure 105/64 105/64 Pulse Oximetry 99 98 Oxygen Delivery Room Air 10/31/24 20:00 10/31/24 22:00 10/31/24 22:00 Temperature Pulse Rate 96 98 101 H Respiratory Rate Blood Pressure 113/47 L Pulse Oximetry Oxygen Delivery 10/31/24 22:23 10/31/24 23:51 11/01/24 00:00 Temperature 36.3 C L Pulse Rate 99 97 95 Respiratory Rate 23 H 22 H Blood Pressure 113/47 L 110/58 L 116/53 L Pulse Oximetry 100 99 Oxygen Delivery 11/01/24 00:00 11/01/24 00:00 11/01/24 02:00 Temperature Pulse Rate 96 92 Respiratory Rate Blood Pressure Pulse Oximetry 100 Oxygen Delivery Room Air 11/01/24 02:00 11/01/24 02:00 11/01/24 04:00 Temperature Pulse Rate 92 92 88 Respiratory Rate 17 Blood Pressure 109/70 109/70 103/63 Pulse Oximetry 96 Oxygen Delivery 11/01/24 04:00 11/01/24 04:00 11/01/24 04:00 Temperature Pulse Rate 88 87 Respiratory Rate 12 Blood Pressure 103/63 Pulse Oximetry 97 97 Oxygen Delivery Room Air 11/01/24 06:00 11/01/24 06:00 11/01/24 08:00 Temperature 36.3 C L 35.9 C L Pulse Rate 88 88 85 Respiratory Rate 12 10 L Blood Pressure 107/59 L 106/67 Pulse Oximetry 97 99 Oxygen Delivery 11/01/24 08:00 11/01/24 08:00 11/01/24 08:00 Temperature Pulse Rate 82 86 85 Respiratory Rate 9 L Blood Pressure 106/67 Pulse Oximetry 96 Oxygen Delivery Room Air 11/01/24 10:00 11/01/24 10:00 11/01/24 10:00 Temperature 35.8 C L Pulse Rate 86 86 86 Respiratory Rate 9 L Blood Pressure 116/57 L 116/57 L Pulse Oximetry 96 Oxygen Delivery 11/01/24 11:05 Temperature Pulse Rate 84 Respiratory Rate Blood Pressure 96/59 L Pulse Oximetry Oxygen Delivery Intake/Output Intake/Output: Intake & Output 10/29/24 10/30/24 10/31/24 11/01/24 23:59 23:59 23:59 23:59 Intake Total 2163.4 250 Output Total 250 325 Balance 1913.4 -75 Meds/Results Medications: Active Medications Generic Name Dose Route Start Last Admin Trade Name Freq PRN Reason Stop Dose Admin Calcium Carbonate 200 mg 10/31/24 18:31 10/31/24 18:49 Calcium Carbonate (Tums) 500 Mg (200 Mg Elemental) PO 200 mg Q6H PRN Administration Indigestion Dextrose 12.5 gm 10/31/24 10:36 Dextrose 50% 25 Gm/50 Ml Syringe IV PUSH PRN PRN Hypoglycemia Protocol Epoetin Laith-epbx 10,000 units 11/01/24 10:25 Epoetin Laith-Epbx 10,000 Units/Ml Vial SUB-Q MOWEFR@09 NEIL Folic Acid 1 mg 11/01/24 09:00 11/01/24 09:37 Folic Acid 1 Mg/0.2 Ml Inj IV PUSH 1 mg QAM NEIL Administration Glucagon 1 mg 10/31/24 10:36 Glucagon For Inj 1 Mg Vial IM PRN PRN Hypoglycemia Protocol Glucose 15 gm 10/31/24 10:36 Glucose Oral Gel 15 Gm Of Glucse In 37.5 Gm Tube PO PRN PRN Hypoglycemia Protocol Heparin Sodium (Porcine) 5,000 units 10/31/24 21:00 11/01/24 07:45 Heparin Sodium 5,000 Units/Ml Vial SUB-Q Not Given Q12HR NEIL Piperacillin Sod/Tazobactam Sod 2.25 gm in 50 mls @ 100 mls/hr 10/31/24 06:00 11/01/24 06:11 Zosyn 2.25 Gm/Ns 50 Ml IVPB 100 mls/hr Q6HR NEIL Administration Dextrose 1,000 mls @ 100 mls/hr 10/31/24 10:36 Dextrose 5% 1,000 Ml IVPB PRN PRN Hypoglycemia Protocol Albumin Human 100 mls @ 60 mls/hr 11/01/24 15:00 Albutein IVPB 11/02/24 10:39 Q6H NEIL Insulin Aspart 1 - 3 units 10/31/24 21:00 10/31/24 21:12 Insulin Aspart (*Bkc) 100 Units/Ml SUB-Q 1 units HS NEIL Administration Protocol Insulin Aspart 3 - 6 units 10/31/24 12:00 11/01/24 06:31 Insulin Aspart (*Bkc) 100 Units/Ml SUB-Q Not Given TIDWM [facility] Protocol Pantoprazole Sodium 40 mg 10/31/24 18:35 10/31/24 18:49 Pantoprazole 40 Mg Tablet PO 40 mg QAM NEIL Administration Thiamine HCl 200 mg 11/01/24 09:00 11/01/24 09:37 Thiamine Hcl 200 Mg/2 Ml Vial IV PUSH 200 mg QAM NEIL Administration Valacyclovir HCl 1,000 mg 11/01/24 09:00 Valacyclovir Hcl 500 Mg Tablet PO Q24H NEIL Vancomycin HCl 1 each 10/31/24 00:42 Vancomycin For Acute Kidney Injury IVPB PRN PRN Vancomycin Protocol Radiology Results: ITS Impressions Head CT 10/31/24 05:29 Impression: No intracranial hemorrhage, mass, or acute infarct. Atrophy and chronic white matter changes, as above. Cervical Spine CT 10/31/24 05:30 Impression: No fracture or subluxation of the cervical spine. Minimal degenerative change. Small right pleural effusion. Chest/Abdomen/Pelvis CT 10/31/24 05:51 Impression: Small right pleural effusion and minimal left pleural effusion. Small focal groundglass opacity right lung, as above, which could reflect focal pulmonary edema or focal pneumonitis. Cirrhotic liver. Cholelithiasis. Impression fractures of L1, L2, L4, and L5. Extensive soft tissue anasarca changes. Small pericardial effusion with pericardial thickening and calcification. Correlate for constrictive or restrictive pericarditis. Renal Ultrasound 10/31/24 08:38 IMPRESSION: No definite abnormality. Chest X-Ray 11/01/24 06:09 IMPRESSION: 1. Mild pulmonary edema. Labs Labs: Laboratory Results - last 24 hr 10/31/24 10/31/24 10/31/24 12:24 16:35 21:11 WBC RBC Hgb Hct MCV MCH MCHC RDW Plt Count MPV Immature Gran % (Auto) Neut % (Auto) Lymph % (Auto) [place] % (Auto) Eos % (Auto) Baso % (Auto) Lymph # (Auto) [place] # (Auto) Eos # (Auto) Baso # (Auto) Abs Immat Gran (auto) Absolute Neuts (auto) Absolute Nucleated RBC Nucleated RBC % Platelet Estimate Schistocytes PT INR APTT Sodium Potassium Chloride Carbon Dioxide Anion Gap BUN Creatinine Estim Creat Clear Calc Estimated GFR Glucose POC Capillary Glucose 130 H 181 H 220 H Lactic Acid Calcium Phosphorus Magnesium Total Bilirubin AST ALT Alkaline Phosphatase Ammonia Total Creatine Kinase Total Protein Albumin Vancomycin Trough 11/01/24 11/01/24 11/01/24 00:01 05:25 07:36 WBC 11.4 H RBC 2.40 L Hgb 7.9 L Hct 23.9 L MCV 99.6 MCH 32.9 MCHC 33.1 RDW 14.5 Plt Count 100 L MPV 8.8 Immature Gran % (Auto) 1.1 H Neut % (Auto) 81.1 H Lymph % (Auto) 9.1 L [place] % (Auto) 7.3 Eos % (Auto) 1.1 Baso % (Auto) 0.3 Lymph # (Auto) 1.04 [place] # (Auto) 0.8 H Eos # (Auto) 0.1 Baso # (Auto) 0.0 Abs Immat Gran (auto) 0.13 H Absolute Neuts (auto) 9.2 H Absolute Nucleated RBC 0.000 Nucleated RBC % 0.0 Platelet Estimate Decreased Schistocytes None seen PT 20.0 H INR 1.6 APTT 46.0 H Sodium 131 L Potassium 3.5 Chloride 99 Carbon Dioxide 21 L Anion Gap 11 BUN 43 H Creatinine 2.37 H Estim Creat Clear Calc 22 Estimated GFR 20 L Glucose 144 H POC Capillary Glucose 144 H Lactic Acid 0.8 Calcium 8.9 Phosphorus 4.3 Magnesium 2.0 Total Bilirubin 1.9 H AST 83 H ALT 26 Alkaline Phosphatase 243 H Ammonia 23 Total Creatine Kinase 176 H Total Protein 6.0 L Albumin 3.4 L Vancomycin Trough 11.9 Quality VTE Prophylaxis VTE prophylaxis: pharmacologic ordered
[2024-11-01] MEDS: EPOETIN ALFA-EPBX 10,000 UNITS/ML VIAL 10000 UNITS SUB-Q (11:36)
[2024-11-01 12:03] LABS: Glucose Point of Care 141 mg/dl (65-105)
--- NOTE | 2024-11-01 12:54 | P.PNINT_ITS ---
Progress Note: A&P Assessment and Plan (1) Septic shock: Code(s): A41.9 - Sepsis, unspecified organism; R65.21 - Severe sepsis with septic shock Status: Acute Assessment and Plan: 10/31: Patient presented with generalized weakness, anasarca, bilateral lower and upper extremity edema, warm and erythematous skin of lower extremity likely cellulitis -etiology of septic shock likely related to UTI, cellulitis -lactic acid has normalized -patient has received albumin for intravascular volume expansion -continue Levophed, maintain MAP > 60- 65 mmHg for adequate end organ perfusion -acute kidney injury likely related to hypotension, septic shock, continue volume expansion -status post IV fluids -continue albumin -Will switch Zosyn to cefepime (11/01) continue vancomycin (10/31) -10/30: Blood cultures growing Gram-negative bacilli 2/2 bottles (2) Acute renal failure: Qualifiers: Acute renal failure type: unspecified Qualified Code(s): N17.9 - Acute kidney failure, unspecified Code(s): N17.9 - Acute kidney failure, unspecified Status: Acute Assessment and Plan: Acute kidney injury likely related to hypovolemia, infection, hypotension -receiving albumin for volume expansion -status post maintenance IV fluids for 1000 mL, on albumin for intravascular volume expansion -urine lytes were prerenal -urine eosinophils were negative, mildly elevated CK levels which are improving -appreciate nephrology following the patient -continue to monitor urine output, electrolytes and renal function -encourage p.o. intake (3) Shingles: Code(s): B02.9 - Zoster without complications Status: Acute Assessment and Plan: Continue valacyclovir (4) Hyponatremia: Code(s): E87.1 - Hypo-osmolality and hyponatremia Status: Acute Assessment and Plan: Chronic hyponatremia likely related to hypovolemic hyponatremia -continue to monitor for now -nephrology following (5) Anasarca: Code(s): R60.1 - Generalized edema Status: Acute Assessment and Plan: Generalized anasarca likely related to cirrhosis/liver disease -patient receiving albumin -Once her blood pressures are improved, will start her home spironolactone, metolazone and Bumex (6) Alcohol dependence: Qualifiers: Substance use status: uncomplicated Qualified Code(s): F10.20 - Alcohol dependence, uncomplicated Code(s): F10.20 - Alcohol dependence, uncomplicated Status: Acute Assessment and Plan: Patient drinks 3 shots of vodka daily -will monitor for alcohol withdrawal (7) Acute on chronic diastolic (congestive) heart failure: Code(s): I50.33 - Acute on chronic diastolic (congestive) heart failure Status: Acute Assessment and Plan: Appreciate, cardiology following the patient, recommended Bumex -patient just came of Levophed,, I feel that she is intravascularly depleted at this time given her infection secondary to UTI and cellulitis -once her blood pressures permit, will start diuretics -patient also has a history of hypertension, takes labetalol, Bumex, metolazone, spironolactone at home (8) Advanced cirrhosis of liver: Code(s): K74.60 - Unspecified cirrhosis of liver Status: Acute Assessment and Plan: Likely related to to alcohol -appreciate GI evaluation recommendation -Oni's DF = 24 10/31: CT scan of the chest, abdomen and pelvis Small right pleural effusion and minimal left pleural effusion. Small focal groundglass opacity right lung, as above, which could reflect focal pulmonary edema or focal pneumonitis. Cirrhotic liver. Cholelithiasis. Impression fractures of L1, L2, L4, and L5. Extensive soft tissue anasarca changes. Small pericardial effusion with pericardial thickening and calcification. Correlate for constrictive or restrictive pericarditis. (9) Anemia: Code(s): D64.9 - Anemia, unspecified Status: Acute Assessment and Plan: Patient has a history of chronic anemia -continue to monitor for now, no acute bleeding noted -will transfuse if hemoglobin < 7.0 (10) ANTHONY (obstructive sleep apnea): Code(s): G47.33 - Obstructive sleep apnea (adult) (pediatric) Status: Acute Assessment and Plan: Obstructive sleep apnea, follows with drier feeder. Dr. 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: with fci use Qualified Code(s): E11.51 - Type 2 diabetes mellitus with diabetic peripheral angiopathy without gangrene; Z79.4 - prison (current) use of insulin Code(s): E11.51 - Type 2 diabetes mellitus with diabetic peripheral angiopathy without gangrene Status: Acute Assessment and Plan: Accu-Cheks and sliding scale insulin Plan DVT prophylaxis: Hold heparin subQ due to decrease in platelets Stress ulcer prophylaxis: Continue Protonix Nutrition: Diabetic diet Code Status: Do not resuscitate Critical Care Time Spent: 33minutes Due to a high probability of clinically significant, life threatening deterioration, the patient required my highest level of preparedness to intervene emergently and I personally spent this critical care time directly and personally managing the patient. This critical care time included obtaining a history; examining the patient; pulse oximetry; ordering and review of studies; arranging urgent treatment with development of a management plan; evaluation of patient's response to treatment; frequent reassessment; and discussions with other providers. It was exclusive of separately billable procedures and treating other patients and teaching time. Please see Assessment and Plan section and the rest of the note for further information on patient assessment and treatment This dictation may have been done utilizing a voice recognition system. Attempts have been made to correct errors. However, there may be uncorrected grammatical, spelling, and recognitions errors present. Subjective Date/time seen: 11/01/24 12:54 Interval history: Reason for consult: Generalized weakness, anasarca, bilateral upper and lower extremity edema, fall from wheelchair 11/01/2024: Patient seen and examined the ICU. Received 1 mg of Dilaudid early this morning, patient is somnolent, does wake up to loud voice command but goes back to sleep. She does follow commands. Off Levophed since yesterday. Patient has had multiple bowel movements with lactulose yesterday, normal ammonia level this morning. Urine output has been adequate, hemodynamically stable, afebrile. WBC trending down. Review of Systems Review of Systems: All systems reviewed & are unremarkable except as noted in HPI and below Exam Narrative: General: Pleasant female in no acute distress HEENT:? Pupils equal and reactive, sclerae is clear, moist oral mucosa Neck:? Supple Respiratory:? Coarse breath sounds bilaterally, decreased at bases, adequate air entry Cardiac:? S1-S2 is normal, regular rate and rhythm Abdomen:? Abdomen is distended, anasarca, hypoactive bowel sounds, nontender, Extremities:? edematous, decreased pedal pulses Neuro:? Patient is more somnolent, likely related to Dilaudid she received early this morning. Opens her eyes to loud voice commands, follows simple commands but goes back to sleep. Skin:?Shingles rash over the right side of the abdomen, erythematous and warm, skin cracking with ulceration Psych:? Normal mentation and affect Objective Data Vital Signs Vital Signs: Vital Signs - 24 hr 10/31/24 13:15 10/31/24 14:00 10/31/24 14:00 Temperature Pulse Rate 101 H 104 H 104 H Respiratory Rate Blood Pressure 101/63 113/60 Pulse Oximetry Oxygen Delivery 10/31/24 14:01 10/31/24 15:00 10/31/24 15:15 Temperature 98.8 F Pulse Rate 104 H 100 102 H Respiratory Rate 18 Blood Pressure 113/60 103/57 L 105/58 L Pulse Oximetry 98 Oxygen Delivery 10/31/24 16:00 10/31/24 16:00 10/31/24 16:00 Temperature Pulse Rate 96 102 H 96 Respiratory Rate 17 Blood Pressure 100/52 L Pulse Oximetry 98 Oxygen Delivery Room Air 10/31/24 16:01 10/31/24 17:26 10/31/24 18:00 Temperature 97.9 F Pulse Rate 99 105 H 100 Respiratory Rate 19 Blood Pressure 100/52 L 91/57 L 112/61 Pulse Oximetry 98 Oxygen Delivery 10/31/24 18:00 10/31/24 18:00 10/31/24 20:00 Temperature 97.6 F 97.3 F L Pulse Rate 100 100 101 H Respiratory Rate 18 23 H Blood Pressure 112/61 105/64 Pulse Oximetry 99 99 Oxygen Delivery 10/31/24 20:00 10/31/24 20:00 10/31/24 20:00 Temperature Pulse Rate 101 H 96 Respiratory Rate Blood Pressure 105/64 Pulse Oximetry 98 Oxygen Delivery Room Air 10/31/24 22:00 10/31/24 22:00 10/31/24 22:23 Temperature Pulse Rate 98 101 H 99 Respiratory Rate 23 H Blood Pressure 113/47 L 113/47 L Pulse Oximetry 100 Oxygen Delivery 10/31/24 23:51 11/01/24 00:00 11/01/24 00:00 Temperature 97.4 F L Pulse Rate 97 95 Respiratory Rate 22 H Blood Pressure 110/58 L 116/53 L Pulse Oximetry 99 100 Oxygen Delivery Room Air 11/01/24 00:00 11/01/24 02:00 11/01/24 02:00 Temperature Pulse Rate 96 92 92 Respiratory Rate Blood Pressure 109/70 Pulse Oximetry Oxygen Delivery 11/01/24 02:00 11/01/24 04:00 11/01/24 04:00 Temperature Pulse Rate 92 88 88 Respiratory Rate 17 12 Blood Pressure 109/70 103/63 103/63 Pulse Oximetry 96 97 Oxygen Delivery 11/01/24 04:00 11/01/24 04:00 11/01/24 06:00 Temperature Pulse Rate 87 88 Respiratory Rate Blood Pressure Pulse Oximetry 97 Oxygen Delivery Room Air 11/01/24 06:00 11/01/24 08:00 11/01/24 08:00 Temperature 97.3 F L 96.7 F L Pulse Rate 88 85 82 Respiratory Rate 12 10 L Blood Pressure 107/59 L 106/67 Pulse Oximetry 97 99 Oxygen Delivery 11/01/24 08:00 11/01/24 08:00 11/01/24 10:00 Temperature 96.4 F L Pulse Rate 86 85 86 Respiratory Rate 9 L 9 L Blood Pressure 106/67 116/57 L Pulse Oximetry 96 96 Oxygen Delivery Room Air 11/01/24 10:00 11/01/24 10:00 11/01/24 11:05 Temperature Pulse Rate 86 86 84 Respiratory Rate Blood Pressure 116/57 L 96/59 L Pulse Oximetry Oxygen Delivery 11/01/24 12:00 Temperature 96.4 F L Pulse Rate 84 Respiratory Rate 11 L Blood Pressure 95/66 L Pulse Oximetry 96 Oxygen Delivery Intake/Output Intake/Output: Intake & Output 10/29/24 10/30/24 10/31/24 11/01/24 23:59 23:59 23:59 23:59 Intake Total 2163.4 300 Output Total 250 325 Balance 1913.4 -25 Meds/Results Medications: Active Medications Generic Name Dose Route Start Last Admin Trade Name Freq PRN Reason Stop Dose Admin Calcium Carbonate 200 mg 10/31/24 18:31 10/31/24 18:49 Calcium Carbonate (Tums) 500 Mg (200 Mg Elemental) PO 200 mg Q6H PRN Administration Indigestion Dextrose 12.5 gm 10/31/24 10:36 Dextrose 50% 25 Gm/50 Ml Syringe IV PUSH PRN PRN Hypoglycemia Protocol Epoetin Laith-epbx 10,000 units 11/01/24 10:25 11/01/24 11:36 Epoetin Laith-Epbx 10,000 Units/Ml Vial SUB-Q 10,000 units MOWEFR@09 NEIL Administration Folic Acid 1 mg 11/01/24 09:00 11/01/24 09:37 Folic Acid 1 Mg/0.2 Ml Inj IV PUSH 1 mg QAM NEIL Administration Glucagon 1 mg 10/31/24 10:36 Glucagon For Inj 1 Mg Vial IM PRN PRN Hypoglycemia Protocol Glucose 15 gm 10/31/24 10:36 Glucose Oral Gel 15 Gm Of Glucse In 37.5 Gm Tube PO PRN PRN Hypoglycemia Protocol Heparin Sodium (Porcine) 5,000 units 10/31/24 21:00 11/01/24 07:45 Heparin Sodium 5,000 Units/Ml Vial SUB-Q Not Given Q12HR [facility] Piperacillin Sod/Tazobactam Sod 2.25 gm in 50 mls @ 100 mls/hr 10/31/24 06:00 11/01/24 11:41 Zosyn 2.25 Gm/Ns 50 Ml IVPB 100 mls/hr Q6HR NEIL Administration Dextrose 1,000 mls @ 100 mls/hr 10/31/24 10:36 Dextrose 5% 1,000 Ml IVPB PRN PRN Hypoglycemia Protocol Albumin Human 100 mls @ 60 mls/hr 11/01/24 15:00 Albutein IVPB 11/02/24 10:39 Q6H [facility] Insulin Aspart 1 - 3 units 10/31/24 21:00 10/31/24 21:12 Insulin Aspart (*Bkc) 100 Units/Ml SUB-Q 1 units HS NEIL Administration Protocol Insulin Aspart 3 - 6 units 10/31/24 12:00 11/01/24 11:43 Insulin Aspart (*Bkc) 100 Units/Ml SUB-Q Not Given TIDWM [facility] Protocol Pantoprazole Sodium 40 mg 10/31/24 18:35 10/31/24 18:49 Pantoprazole 40 Mg Tablet PO 40 mg QAM NEIL Administration Thiamine HCl 200 mg 11/01/24 09:00 11/01/24 09:37 Thiamine Hcl 200 Mg/2 Ml Vial IV PUSH 200 mg QAM NEIL Administration Valacyclovir HCl 1,000 mg 11/01/24 09:00 Valacyclovir Hcl 500 Mg Tablet PO Q24H NEIL Vancomycin HCl 1 each 10/31/24 00:42 Vancomycin For Acute Kidney Injury IVPB PRN PRN Vancomycin Protocol Radiology Results: ITS Impressions Head CT 10/31/24 05:29 Impression: No intracranial hemorrhage, mass, or acute infarct. Atrophy and chronic white matter changes, as above. Cervical Spine CT 10/31/24 05:30 Impression: No fracture or subluxation of the cervical spine. Minimal degenerative change. Small right pleural effusion. Chest/Abdomen/Pelvis CT 10/31/24 05:51 Impression: Small right pleural effusion and minimal left pleural effusion. Small focal groundglass opacity right lung, as above, which could reflect focal pulmonary edema or focal pneumonitis. Cirrhotic liver. Cholelithiasis. Impression fractures of L1, L2, L4, and L5. Extensive soft tissue anasarca changes. Small pericardial effusion with pericardial thickening and calcification. Correlate for constrictive or restrictive pericarditis. Renal Ultrasound 10/31/24 08:38 IMPRESSION: No definite abnormality. Chest X-Ray 11/01/24 06:09 IMPRESSION: 1. Mild pulmonary edema. Labs Labs: Laboratory Results - last 24 hr 10/31/24 10/31/24 11/01/24 16:35 21:11 00:01 WBC RBC Hgb Hct MCV MCH MCHC RDW Plt Count MPV Immature Gran % (Auto) Neut % (Auto) Lymph % (Auto) [place] % (Auto) Eos % (Auto) Baso % (Auto) Lymph # (Auto) [place] # (Auto) Eos # (Auto) Baso # (Auto) Abs Immat Gran (auto) Absolute Neuts (auto) Absolute Nucleated RBC Nucleated RBC % Platelet Estimate Schistocytes PT INR APTT Sodium Potassium Chloride Carbon Dioxide Anion Gap BUN Creatinine Estim Creat Clear Calc Estimated GFR Glucose POC Capillary Glucose 181 H 220 H Lactic Acid Calcium Phosphorus Magnesium Total Bilirubin AST ALT Alkaline Phosphatase Ammonia Total Creatine Kinase Total Protein Albumin Vancomycin Trough 11.9 11/01/24 11/01/24 11/01/24 05:25 07:36 11:43 WBC 11.4 H RBC 2.40 L Hgb 7.9 L Hct 23.9 L MCV 99.6 MCH 32.9 MCHC 33.1 RDW 14.5 Plt Count 100 L MPV 8.8 Immature Gran % (Auto) 1.1 H Neut % (Auto) 81.1 H Lymph % (Auto) 9.1 L [place] % (Auto) 7.3 Eos % (Auto) 1.1 Baso % (Auto) 0.3 Lymph # (Auto) 1.04 [place] # (Auto) 0.8 H Eos # (Auto) 0.1 Baso # (Auto) 0.0 Abs Immat Gran (auto) 0.13 H Absolute Neuts (auto) 9.2 H Absolute Nucleated RBC 0.000 Nucleated RBC % 0.0 Platelet Estimate Decreased Schistocytes None seen PT 20.0 H INR 1.6 APTT 46.0 H Sodium 131 L Potassium 3.5 Chloride 99 Carbon Dioxide 21 L Anion Gap 11 BUN 43 H Creatinine 2.37 H Estim Creat Clear Calc 22 Estimated GFR 20 L Glucose 144 H POC Capillary Glucose 144 H 141 H Lactic Acid 0.8 Calcium 8.9 Phosphorus 4.3 Magnesium 2.0 Total Bilirubin 1.9 H AST 83 H ALT 26 Alkaline Phosphatase 243 H Ammonia 23 Total Creatine Kinase 176 H Total Protein 6.0 L Albumin 3.4 L Vancomycin Trough Quality VTE Prophylaxis VTE prophylaxis: pharmacologic ordered
--- NOTE | 2024-11-01 14:18 | WPDGIPROGNO ---
Progress Note: A&P Assessment and Plan (1) Alcoholic cirrhosis of liver: Code(s): K70.30 - Alcoholic cirrhosis of liver without ascites Status: Acute Assessment and Plan: h/o esophageal varices, no recent GIB- noted that at home using labetalol (switch to coreg once she goes home for prophylaxis) and consider repeat EGD as outpatient (last one 2022 with EV s/p banding) (2) Gram-negative bacteremia: Code(s): R78.81 - Bacteremia Status: Acute Assessment and Plan: here with septic shock- not longer on levophed, pending final ID ? UTI/cellulitis no ascites in CT scan (3) Alcohol dependence: Qualifiers: Substance use status: uncomplicated Qualified Code(s): F10.20 - Alcohol dependence, uncomplicated Code(s): F10.20 - Alcohol dependence, uncomplicated Status: Acute (4) Acute on chronic renal failure: Code(s): N17.9 - Acute kidney failure, unspecified; N18.9 - Chronic kidney disease, unspecified Status: Acute Assessment and Plan: probably from sepsis, hypotension, etc received iv albumin and albumin will monitor less likely HRS, if low MAP then consider midodrine (5) Septic shock: Code(s): A41.9 - Sepsis, unspecified organism; R65.21 - Severe sepsis with septic shock Status: Acute Assessment and Plan: resolved, + Blood culture on iv abx (6) Cellulitis: Code(s): L03.90 - Cellulitis, unspecified Status: Acute Subjective Date/time seen: 11/01/24 14:18 Interval history: MAP better and she is off levophed, blood culture + GN Review of Systems Review of Systems: All systems reviewed & are unremarkable except as noted in HPI and below Exam Narrative: General: Pleasant female in no acute distress HEENT:? Pupils equal and reactive, sclerae is clear, moist oral mucosa Neck:? Supple Respiratory:? Coarse breath sounds bilaterally, decreased at bases, adequate air entry Cardiac:? S1-S2 is normal, regular rate and rhythm Abdomen:? Abdomen is distended, anasarca, hypoactive bowel sounds, nontender, Extremities:? edematous, decreased pedal pulses Neuro:? Patient is awake, alert, oriented x2, follows simple command Skin:?chronic lesions in legs/erythema Psych:? Normal mentation and affect Objective Data Vital Signs Vital Signs: Vital Signs - 24 hr 10/31/24 15:00 10/31/24 15:15 10/31/24 16:00 Temperature Pulse Rate 100 102 H 96 Respiratory Rate 17 Blood Pressure 103/57 L 105/58 L Pulse Oximetry 98 Oxygen Delivery Room Air 10/31/24 16:00 10/31/24 16:00 10/31/24 16:01 Temperature 97.9 F Pulse Rate 102 H 96 99 Respiratory Rate 19 Blood Pressure 100/52 L 100/52 L Pulse Oximetry 98 Oxygen Delivery 10/31/24 17:26 10/31/24 18:00 10/31/24 18:00 Temperature Pulse Rate 105 H 100 100 Respiratory Rate Blood Pressure 91/57 L 112/61 Pulse Oximetry Oxygen Delivery 10/31/24 18:00 10/31/24 20:00 10/31/24 20:00 Temperature 97.6 F 97.3 F L Pulse Rate 100 101 H Respiratory Rate 18 23 H Blood Pressure 112/61 105/64 Pulse Oximetry 99 99 98 Oxygen Delivery Room Air 10/31/24 20:00 10/31/24 20:00 10/31/24 22:00 Temperature Pulse Rate 101 H 96 98 Respiratory Rate Blood Pressure 105/64 113/47 L Pulse Oximetry Oxygen Delivery 10/31/24 22:00 10/31/24 22:23 10/31/24 23:51 Temperature 97.4 F L Pulse Rate 101 H 99 97 Respiratory Rate 23 H 22 H Blood Pressure 113/47 L 110/58 L Pulse Oximetry 100 99 Oxygen Delivery 11/01/24 00:00 11/01/24 00:00 11/01/24 00:00 Temperature Pulse Rate 95 96 Respiratory Rate Blood Pressure 116/53 L Pulse Oximetry 100 Oxygen Delivery Room Air 11/01/24 02:00 11/01/24 02:00 11/01/24 02:00 Temperature Pulse Rate 92 92 92 Respiratory Rate 17 Blood Pressure 109/70 109/70 Pulse Oximetry 96 Oxygen Delivery 11/01/24 04:00 11/01/24 04:00 11/01/24 04:00 Temperature Pulse Rate 88 88 Respiratory Rate 12 Blood Pressure 103/63 103/63 Pulse Oximetry 97 97 Oxygen Delivery Room Air 11/01/24 04:00 11/01/24 06:00 11/01/24 06:00 Temperature 97.3 F L Pulse Rate 87 88 88 Respiratory Rate 12 Blood Pressure 107/59 L Pulse Oximetry 97 Oxygen Delivery 11/01/24 08:00 11/01/24 08:00 11/01/24 08:00 Temperature 96.7 F L Pulse Rate 85 82 86 Respiratory Rate 10 L 9 L Blood Pressure 106/67 Pulse Oximetry 99 96 Oxygen Delivery Room Air 11/01/24 08:00 11/01/24 10:00 11/01/24 10:00 Temperature 96.4 F L Pulse Rate 85 86 86 Respiratory Rate 9 L Blood Pressure 106/67 116/57 L Pulse Oximetry 96 Oxygen Delivery 11/01/24 10:00 11/01/24 11:05 11/01/24 12:00 Temperature 96.4 F L Pulse Rate 86 84 84 Respiratory Rate 11 L Blood Pressure 116/57 L 96/59 L 95/66 L Pulse Oximetry 96 Oxygen Delivery 11/01/24 12:00 11/01/24 12:00 11/01/24 14:00 Temperature Pulse Rate 84 85 88 Respiratory Rate 11 L Blood Pressure Pulse Oximetry 96 Oxygen Delivery Room Air 11/01/24 14:00 Temperature 96.5 F L Pulse Rate 88 Respiratory Rate 10 L Blood Pressure 116/71 Pulse Oximetry 97 Oxygen Delivery Intake/Output Intake/Output: Intake & Output 10/29/24 10/30/24 10/31/24 11/01/24 23:59 23:59 23:59 23:59 Intake Total 2163.4 300 Output Total 250 325 Balance 1913.4 -25 Meds/Results Medications: Active Medications Generic Name Dose Route Start Last Admin Trade Name Freq PRN Reason Stop Dose Admin Calcium Carbonate 200 mg 10/31/24 18:31 10/31/24 18:49 Calcium Carbonate (Tums) 500 Mg (200 Mg Elemental) PO 200 mg Q6H PRN Administration Indigestion Dextrose 12.5 gm 10/31/24 10:36 Dextrose 50% 25 Gm/50 Ml Syringe IV PUSH PRN PRN Hypoglycemia Protocol Epoetin Laith-epbx 10,000 units 11/01/24 10:25 11/01/24 11:36 Epoetin Laith-Epbx 10,000 Units/Ml Vial SUB-Q 10,000 units MOWEFR@09 NEIL Administration Folic Acid 1 mg 11/01/24 09:00 11/01/24 09:37 Folic Acid 1 Mg/0.2 Ml Inj IV PUSH 1 mg QAM NEIL Administration Glucagon 1 mg 10/31/24 10:36 Glucagon For Inj 1 Mg Vial IM PRN PRN Hypoglycemia Protocol Glucose 15 gm 10/31/24 10:36 Glucose Oral Gel 15 Gm Of Glucse In 37.5 Gm Tube PO PRN PRN Hypoglycemia Protocol Heparin Sodium (Porcine) 5,000 units 10/31/24 21:00 11/01/24 07:45 Heparin Sodium 5,000 Units/Ml Vial SUB-Q Not Given Q12HR NEIL Dextrose 1,000 mls @ 100 mls/hr 10/31/24 10:36 Dextrose 5% 1,000 Ml IVPB PRN PRN Hypoglycemia Protocol Albumin Human 100 mls @ 60 mls/hr 11/01/24 15:00 Albutein IVPB 11/02/24 10:39 Q6H NEIL Cefepime HCl 1 gm in 50 mls @ 100 mls/hr 11/01/24 14:00 Maxipime 1 Gm/Ns 50 Ml IVPB Q12H NEIL Insulin Aspart 1 - 3 units 10/31/24 21:00 10/31/24 21:12 Insulin Aspart (*Bkc) 100 Units/Ml SUB-Q 1 units HS NEIL Administration Protocol Insulin Aspart 3 - 6 units 10/31/24 12:00 11/01/24 11:43 Insulin Aspart (*Bkc) 100 Units/Ml SUB-Q Not Given TIDWM NEIL Protocol Pantoprazole Sodium 40 mg 10/31/24 18:35 10/31/24 18:49 Pantoprazole 40 Mg Tablet PO 40 mg QAM NEIL Administration Thiamine HCl 200 mg 11/01/24 09:00 11/01/24 09:37 Thiamine Hcl 200 Mg/2 Ml Vial IV PUSH 200 mg QAM NEIL Administration Valacyclovir HCl 1,000 mg 11/01/24 09:00 Valacyclovir Hcl 500 Mg Tablet PO Q24H NEIL Vancomycin HCl 1 each 10/31/24 00:42 Vancomycin For Acute Kidney Injury IVPB PRN PRN Vancomycin Protocol Radiology Results: ITS Impressions Head CT 10/31/24 05:29 Impression: No intracranial hemorrhage, mass, or acute infarct. Atrophy and chronic white matter changes, as above. Cervical Spine CT 10/31/24 05:30 Impression: No fracture or subluxation of the cervical spine. Minimal degenerative change. Small right pleural effusion. Chest/Abdomen/Pelvis CT 10/31/24 05:51 Impression: Small right pleural effusion and minimal left pleural effusion. Small focal groundglass opacity right lung, as above, which could reflect focal pulmonary edema or focal pneumonitis. Cirrhotic liver. Cholelithiasis. Impression fractures of L1, L2, L4, and L5. Extensive soft tissue anasarca changes. Small pericardial effusion with pericardial thickening and calcification. Correlate for constrictive or restrictive pericarditis. Renal Ultrasound 10/31/24 08:38 IMPRESSION: No definite abnormality. Chest X-Ray 11/01/24 06:09 IMPRESSION: 1. Mild pulmonary edema. Labs Labs: Laboratory Results - last 24 hr 10/31/24 10/31/24 11/01/24 16:35 21:11 00:01 WBC RBC Hgb Hct MCV MCH MCHC RDW Plt Count MPV Immature Gran % (Auto) Neut % (Auto) Lymph % (Auto) [place] % (Auto) Eos % (Auto) Baso % (Auto) Lymph # (Auto) [place] # (Auto) Eos # (Auto) Baso # (Auto) Abs Immat Gran (auto) Absolute Neuts (auto) Absolute Nucleated RBC Nucleated RBC % Platelet Estimate Schistocytes PT INR APTT Sodium Potassium Chloride Carbon Dioxide Anion Gap BUN Creatinine Estim Creat Clear Calc Estimated GFR Glucose POC Capillary Glucose 181 H 220 H Lactic Acid Calcium Phosphorus Magnesium Total Bilirubin AST ALT Alkaline Phosphatase Ammonia Total Creatine Kinase Total Protein Albumin Vancomycin Trough 11.9 11/01/24 11/01/24 11/01/24 05:25 07:36 11:43 WBC 11.4 H RBC 2.40 L Hgb 7.9 L Hct 23.9 L MCV 99.6 MCH 32.9 MCHC 33.1 RDW 14.5 Plt Count 100 L MPV 8.8 Immature Gran % (Auto) 1.1 H Neut % (Auto) 81.1 H Lymph % (Auto) 9.1 L [place] % (Auto) 7.3 Eos % (Auto) 1.1 Baso % (Auto) 0.3 Lymph # (Auto) 1.04 [place] # (Auto) 0.8 H Eos # (Auto) 0.1 Baso # (Auto) 0.0 Abs Immat Gran (auto) 0.13 H Absolute Neuts (auto) 9.2 H Absolute Nucleated RBC 0.000 Nucleated RBC % 0.0 Platelet Estimate Decreased Schistocytes None seen PT 20.0 H INR 1.6 APTT 46.0 H Sodium 131 L Potassium 3.5 Chloride 99 Carbon Dioxide 21 L Anion Gap 11 BUN 43 H Creatinine 2.37 H Estim Creat Clear Calc 22 Estimated GFR 20 L Glucose 144 H POC Capillary Glucose 144 H 141 H Lactic Acid 0.8 Calcium 8.9 Phosphorus 4.3 Magnesium 2.0 Total Bilirubin 1.9 H AST 83 H ALT 26 Alkaline Phosphatase 243 H Ammonia 23 Total Creatine Kinase 176 H Total Protein 6.0 L Albumin 3.4 L Vancomycin Trough
[2024-11-01] MEDS: valACYclovir HCL 500 MG TABLET 1000 MG PO (14:38)
[2024-11-01] MEDS: PANTOPRAZOLE 40 MG TABLET PO (14:39)
[2024-11-01] MEDS: CEFEPIME 1 GM/NS 50 ML 1 GM/50 ML BAG IVPB (14:39)
[2024-11-01 16:16] LABS: Glucose Point of Care 120 mg/dl (65-105)
[2024-11-01] MEDS: ACYCLOVIR 5% OINTMENT 15 GM TUBE 1 APPLIC TOPICAL ×2 (16:16→20:48)
[2024-11-01 20:29] LABS: Glucose Point of Care 144 mg/dl (65-105)
[2024-11-02] VITALS (17 sets, daily range): BP systolic 99–139; BP diastolic 52–65; PULSE 71–117; RESP 18–22; TEMP 36.4–36.8; O2SAT 100
--- NOTE | 2024-11-02 00:10 | PC.NURSE ---
This patient, Lou Islas, was transferred to [facility] on 11/02/24 at 0010. Personal belongings sent with patient. Report given to DERRICK Mahoney. Appropriate documentation sent with patient.
--- NOTE | 2024-11-02 00:14 | PC.NURSE ---
This patient, Lou Islas, was received from ICU-6 on 11/02/24 at 0014. Patient/family oriented to unit policies and routines. Report obtained from Paz Mathew RN.
[2024-11-02 01:14] LABS: Vancomycin Random 22.5 ug/mL (10-20)
[2024-11-02] MEDS: CEFEPIME 1 GM/NS 50 ML 1 GM/50 ML BAG IVPB ×2 (03:24→14:30)
[2024-11-02] MEDS: ALBUMIN HUMAN 25% 25 GM/100 ML 100 ML IVPB ×2 (03:24→09:55)
[2024-11-02 07:00] LABS: Basophils Absolute Auto 0.1 K/mm3 (0.0-0.1); Basophils Percent Auto 0.6 % (0.2-1.2); Eosinophils Absolute Auto 0.1 K/mm3 (0-0.3); Eosinophils Percent Auto 1.5 % (0-4.4); Hematocrit 24.8 % (37.0-47.0); Immature Granulocyte Absolute 0.27 K/mm3 (0.00-0.031); Immature Granulocyte Percent A 3.4 % (0-0.5); Lymphocytes Absolute Auto 0.78 K/mm3 (0.9-3.2); Lymphocytes Percent Auto 9.9 % (18.3-44.2); Mean Corpuscular HGB Conc 32.3 g/dl (32-36); Mean Corpuscular Hemoglobin 32.5 pg (26-34); Mean Corpuscular Volume 100.8 fl (80-100); Mean Platelet Volume 9.4 fl (7.4-10.4); Monocytes Absolute Auto 0.6 K/mm3 (0.1-0.6); Monocytes Percent Auto 7.5 % (2.6-8.5); Neutrophils Absolute Auto 6.1 K/mm3 (1.3-6.7); Neutrophils Percent Auto 77.1 % (45.5-73.1); Nucleated Red Blood Cells Perc 0.3 % (0.0-0.2); Platelet Count Result 106 k/mm3 (150-375); Red Blood Count 2.46 M/mm3 (4.2-5.4); Red Cell Distribution Width 14.5 % (11.5-14.5); White Blood Count 7.9 K/mm3 (4.5-10.0)
[2024-11-02 07:10] LABS: Ammonia 15 umol/L (9-30); Lactic Acid Reflex 0.8 mmol/L (0.7-2.0)
[2024-11-02 07:12] LABS: Alanine Aminotransferase 23 U/L (6-35); Albumin Level 3.8 g/dL (3.5-5.1); Alkaline Phosphatase 237 U/L (38-126); Anion Gap 15 mmol/L (4-12); Aspartate Amino Transferase 57 U/L (14-36); Bilirubin,Total 1.8 mg/dL (0.2-1.3); Blood Urea Nitrogen 45 mg/dL (7-17); Calcium 9.5 mg/dL (8.4-10.2); Carbon Dioxide 18 mmol/L (22-30); Chloride 101 mmol/L (98-107); Estimated CRCL calculation 20 ml/min; Estimated Glomerular Filt Rate 18; Glucose 109 mg/dL (65-110); Phosphorus 4.4 mg/dL (2.5-4.5); Potassium 3.8 mmol/L (3.4-5.0); Sodium 134 mmol/L (137-145)
[2024-11-02 07:31] LABS: Glucose Point of Care 120 mg/dl (65-105)
[2024-11-02 07:47] LABS: Partial Thromboplastin Time 37.4 Seconds (22.3-36.8)
[2024-11-02 08:11] LABS: INR 1.5; Prothrombin Time 18.8 Seconds (11.1-14.7)
[2024-11-02] MEDS: valACYclovir HCL 500 MG TABLET 1000 MG PO (09:54)
[2024-11-02] MEDS: THIAMINE HCL 200 MG/2 ML VIAL IV PUSH (09:54)
[2024-11-02] MEDS: FOLIC ACID 1 MG/0.2 ML INJ IV PUSH (09:54)
[2024-11-02] MEDS: PANTOPRAZOLE 40 MG TABLET PO (09:54)
[2024-11-02] MEDS: ATORVASTATIN 10 MG TABLET PO (09:55)
[2024-11-02] MEDS: ACETAMINOPHEN 500 MG TABLET PO (09:55)
[2024-11-02] MEDS: ACYCLOVIR 5% OINTMENT 15 GM TUBE 1 APPLIC TOPICAL ×4 (09:56→21:59)
--- NOTE | 2024-11-02 10:08 | P.PNNP_ITS ---
Progress Note: A&P Assessment and Plan (1) CATHRYN (acute kidney injury): Code(s): N17.9 - Acute kidney failure, unspecified Status: Acute Assessment and Plan: * as noted on admission * suspect multifactorial: * prerenal factors * Sepsis with Gram-negative bacilli * hemodynamic instability/shock * BP medications + diuretics prior to admission * other (?) * evaluation to date noted: * renal U/S + CT A/P without obstruction * urine eosinophils negative * urine electrolytes prerenal * CPK mildly elevated (bet not enough to affect kidney function) * Positive blood cultures but negative urine culture * creatinine level is a little bit higher. * Albumin level is up to 3.8. * The patient is not on diuretics and her blood pressure is better. * The patient is was on vancomycin plus Zosyn. the latter was dis continued. If the creatinine is worse again tomorrow, it might be prudent to stop the vancomycin because this can occasionally be nephrotoxic. Her blood culture showed Pseudomonas. There is question of cellulitis. Can we switch to linezolid tomorrow if need be? * Since albumin is so good I think we can stop the albumin supplements. (2) Chronic kidney disease, stage 3: Code(s): N18.30 - Chronic kidney disease, stage 3 unspecified Status: Chronic Assessment and Plan: * creatinine has fluctuated in the last several years * seems to average out around 1.3 - 1.7mg/dl * however, has been as low as 1.0 - 1.1mg/dl as well * due to hypertension, diabetes, ANTHONY, and age along with her fluctuating fluid/volume status (due to CHF and liver disease) + chronic need for diuretic therapy (3) Septic shock: Code(s): A41.9 - Sepsis, unspecified organism; R65.21 - Severe sepsis with septic shock Status: Acute Assessment and Plan: * based on presentation * suspected source = LE cellulitis * lactic acid has normalized * IV albumin for volume expansion * vasopressor therapy to maintain MAP/blood pressure but currently this has been held. * Initial blood cultures positive for Gram-negative bacilli. * on vancomycin plus cefepime (4) Hyponatremia: Code(s): E87.1 - Hypo-osmolality and hyponatremia Status: Acute Assessment and Plan: * chronic issue/problem * baseline sodium runs ~ 127 - 132 in the last few years * multiple issues contributing: * anasarca/fluid retention * CHF * liver cirrhosis * renal insufficiency/CKD * chronic diuretic therapy (loop + thiazide diuretic use) * alcohol use * previous outpatient work-up (TSH, cortisol, SPE, UPE...etc) essentially negative * was on salt tabs + diuretics as an outpatient * Sodium level is improved to 134 (5) Anasarca: Code(s): R60.1 - Generalized edema Status: Acute Assessment and Plan: * likely seconday to CHF and liver cirrhosis * albumin level is better. We can stop the IV albumin. * However she still has lots of swelling and pulmonary edema on her chest x- ray. Will give a 1 time dose of diuretic (6) Acute on chronic diastolic (congestive) heart failure: Code(s): I50.33 - Acute on chronic diastolic (congestive) heart failure Status: Acute Assessment and Plan: * Cardiology following * contributing to #5 * attempt diuresis (7) Advanced cirrhosis of liver: Code(s): K74.60 - Unspecified cirrhosis of liver Status: Acute Assessment and Plan: * presumably due to alcohol intake * Seen on CT abdomen * contributing to #5 * Gastroenterology consulted \\ (8) Anemia: Code(s): D64.9 - Anemia, unspecified Status: Acute Assessment and Plan: * chronic issue * Hemoglobin 8.4 then 7.9 then 8. * Renal failure may be contributing. On Epogen (9) Alcohol dependence: Qualifiers: Substance use status: uncomplicated Qualified Code(s): F10.20 - Alcohol dependence, uncomplicated Code(s): F10.20 - Alcohol dependence, uncomplicated Status: Acute Assessment and Plan: * Has continues to drink alcohol at home (but has cut back) * monitor for withdrawal (10) Type 2 diabetes mellitus with diabetic peripheral angiopathy without gangrene: Qualifiers: Diabetes mellitus termite treater insulin use: with nursing home use Qualified Code(s): E11.51 - Type 2 diabetes mellitus with diabetic peripheral angiopathy without gangrene; Z79.4 - correction (current) use of insulin Code(s): E11.51 - Type 2 diabetes mellitus with diabetic peripheral angiopathy without gangrene Status: Acute Assessment and Plan: * follow accu-cheks * glycemic control per commutator assembler/hospitalist Subjective Date/time seen: 11/02/24 10:08 Interval history: patient is feeling better today. She is much more awake. Exam Narrative: WDWN in NAD a bit sleepy from recent medicine. skin no rash head ncat lungs clear bilateral cor reg no rub or gallop abd BS+ nontender and soft ext 2+ bilateral edema. Objective Data Vital Signs Vital Signs: Vital Signs - 24 hr 11/01/24 11:05 11/01/24 12:00 11/01/24 12:00 Temperature 96.4 F L Pulse Rate 84 84 84 Respiratory Rate 11 L 11 L Blood Pressure 96/59 L 95/66 L Pulse Oximetry 96 96 Oxygen Delivery Room Air 11/01/24 12:00 11/01/24 14:00 11/01/24 14:00 Temperature 96.5 F L Pulse Rate 85 88 88 Respiratory Rate 10 L Blood Pressure 116/71 Pulse Oximetry 97 Oxygen Delivery 11/01/24 16:00 11/01/24 16:00 11/01/24 16:00 Temperature 96.9 F L Pulse Rate 91 91 63 Respiratory Rate 14 14 Blood Pressure 105/58 L Pulse Oximetry 99 99 Oxygen Delivery Room Air 11/01/24 18:00 11/01/24 18:00 11/01/24 20:00 Temperature 97.3 F L Pulse Rate 97 102 H Respiratory Rate Blood Pressure 98/64 L Pulse Oximetry 98 Oxygen Delivery Room Air 11/01/24 20:00 11/01/24 20:17 11/01/24 22:00 Temperature 97.8 F Pulse Rate 89 94 103 H Respiratory Rate 14 Blood Pressure 108/58 L Pulse Oximetry 98 Oxygen Delivery 11/02/24 00:00 11/02/24 00:00 11/02/24 00:00 Temperature 97.5 F L Pulse Rate 107 H 105 H Respiratory Rate 19 Blood Pressure 101/52 L Pulse Oximetry 100 Oxygen Delivery Room Air 11/02/24 02:00 11/02/24 04:00 11/02/24 04:00 Temperature 97.8 F Pulse Rate 105 H 100 102 H Respiratory Rate 18 Blood Pressure 102/54 L Pulse Oximetry 100 Oxygen Delivery 11/02/24 04:10 11/02/24 06:00 11/02/24 07:32 Temperature 97.9 F Pulse Rate 100 101 H 103 H Respiratory Rate 18 18 Blood Pressure 102/60 Pulse Oximetry 100 100 Oxygen Delivery Room Air Intake/Output Intake/Output: Intake & Output 10/30/24 10/31/24 11/01/24 11/02/24 23:59 23:59 23:59 23:59 Intake Total 2163.4 2340 612 Output Total 250 500 290 Balance 1913.4 1840 322 Meds/Results Medications: Active Medications Generic Name Dose Route Start Last Admin Trade Name Freq PRN Reason Stop Dose Admin Acetaminophen 500 mg 11/01/24 14:35 11/02/24 09:55 Acetaminophen 500 Mg Tablet PO 500 mg Q6H PRN Administration Mild Pain (1-3) or Fever Acyclovir 1 applic 11/01/24 17:00 11/02/24 09:56 Acyclovir 5% Ointment 15 Gm Tube TOPICAL 1 applic Q4HWA NEIL Administration Atorvastatin Calcium 10 mg 11/02/24 09:00 11/02/24 09:55 Atorvastatin 10 Mg Tablet PO 10 mg QAM NEIL Administration Calcium Carbonate 200 mg 10/31/24 18:31 10/31/24 18:49 Calcium Carbonate (Tums) 500 Mg (200 Mg Elemental) PO 200 mg Q6H PRN Administration Indigestion Dextrose 12.5 gm 10/31/24 10:36 Dextrose 50% 25 Gm/50 Ml Syringe IV PUSH PRN PRN Hypoglycemia Protocol Epoetin Laith-epbx 10,000 units 11/01/24 10:25 11/01/24 11:36 Epoetin Laith-Epbx 10,000 Units/Ml Vial SUB-Q 10,000 units MOWEFR@09 NEIL Administration Fluticasone Propionate 1 spray 11/01/24 14:35 Fluticasone Propionate 0.05% Na Spr 16 Gm Btl (*Bkc) NASAL DAILY PRN allergies Folic Acid 1 mg 11/01/24 09:00 11/02/24 09:54 Folic Acid 1 Mg/0.2 Ml Inj IV PUSH 1 mg QAM NEIL Administration Glucagon 1 mg 10/31/24 10:36 Glucagon For Inj 1 Mg Vial IM PRN PRN Hypoglycemia Protocol Glucose 15 gm 10/31/24 10:36 Glucose Oral Gel 15 Gm Of Glucse In 37.5 Gm Tube PO PRN PRN Hypoglycemia Protocol Heparin Sodium (Porcine) 5,000 units 10/31/24 21:00 11/01/24 07:45 Heparin Sodium 5,000 Units/Ml Vial SUB-Q Not Given Q12HR NEIL Dextrose 1,000 mls @ 100 mls/hr 10/31/24 10:36 Dextrose 5% 1,000 Ml IVPB PRN PRN Hypoglycemia Protocol Albumin Human 100 mls @ 60 mls/hr 11/01/24 15:00 11/02/24 09:55 Albutein IVPB 11/02/24 10:39 60 mls/hr Q6H NEIL Administration Cefepime HCl 1 gm in 50 mls @ 100 mls/hr 11/01/24 14:00 11/02/24 03:54 Maxipime 1 Gm/Ns 50 Ml IVPB Infused Q12H NEIL Infusion Insulin Aspart 1 - 3 units 10/31/24 21:00 11/01/24 20:44 Insulin Aspart (*Bkc) 100 Units/Ml SUB-Q Not Given HS NEIL Protocol Insulin Aspart 3 - 6 units 10/31/24 12:00 11/02/24 09:52 Insulin Aspart (*Bkc) 100 Units/Ml SUB-Q Not Given TIDWM [facility] Protocol Pantoprazole Sodium 40 mg 10/31/24 18:35 11/02/24 09:54 Pantoprazole 40 Mg Tablet PO 40 mg QAM NEIL Administration Tacrolimus 1 applic 11/01/24 17:00 Tacrolimus 0.03% 30 Gm Ointment TOPICAL BID PRN Eczema Thiamine HCl 200 mg 11/01/24 09:00 11/02/24 09:54 Thiamine Hcl 200 Mg/2 Ml Vial IV PUSH 200 mg QAM NEIL Administration Valacyclovir HCl 1,000 mg 11/01/24 09:00 11/02/24 09:54 Valacyclovir Hcl 500 Mg Tablet PO 1,000 mg Q24H NEIL Administration Vancomycin HCl 1 each 10/31/24 00:42 Vancomycin For Acute Kidney Injury IVPB PRN PRN Vancomycin Protocol Radiology Results: ITS Impressions Head CT 10/31/24 05:29 Impression: No intracranial hemorrhage, mass, or acute infarct. Atrophy and chronic white matter changes, as above. Cervical Spine CT 10/31/24 05:30 Impression: No fracture or subluxation of the cervical spine. Minimal degenerative change. Small right pleural effusion. Chest/Abdomen/Pelvis CT 10/31/24 05:51 Impression: Small right pleural effusion and minimal left pleural effusion. Small focal groundglass opacity right lung, as above, which could reflect focal pulmonary edema or focal pneumonitis. Cirrhotic liver. Cholelithiasis. Impression fractures of L1, L2, L4, and L5. Extensive soft tissue anasarca changes. Small pericardial effusion with pericardial thickening and calcification. Correlate for constrictive or restrictive pericarditis. Renal Ultrasound 10/31/24 08:38 IMPRESSION: No definite abnormality. Chest X-Ray 11/01/24 06:09 IMPRESSION: 1. Mild pulmonary edema. Labs Labs: Laboratory Results - last 24 hr 11/01/24 11/01/24 11/01/24 11:43 16:13 20:27 WBC RBC Hgb Hct MCV MCH MCHC RDW Plt Count MPV Immature Gran % (Auto) Neut % (Auto) Lymph % (Auto) [place] % (Auto) Eos % (Auto) Baso % (Auto) Lymph # (Auto) [place] # (Auto) Eos # (Auto) Baso # (Auto) Abs Immat Gran (auto) Absolute Neuts (auto) Absolute Nucleated RBC Nucleated RBC % PT INR APTT Sodium Potassium Chloride Carbon Dioxide Anion Gap BUN Creatinine Estim Creat Clear Calc Estimated GFR Glucose POC Capillary Glucose 141 H 120 H 144 H Lactic Acid Calcium Phosphorus Magnesium Total Bilirubin AST ALT Alkaline Phosphatase Ammonia Total Protein Albumin Random Vancomycin 11/02/24 11/02/24 11/02/24 00:43 06:45 07:29 WBC 7.9 RBC 2.46 L Hgb 8.0 L Hct 24.8 L MCV 100.8 H MCH 32.5 MCHC 32.3 RDW 14.5 Plt Count 106 L MPV 9.4 Immature Gran % (Auto) 3.4 H Neut % (Auto) 77.1 H Lymph % (Auto) 9.9 L [place] % (Auto) 7.5 Eos % (Auto) 1.5 Baso % (Auto) 0.6 Lymph # (Auto) 0.78 L [place] # (Auto) 0.6 Eos # (Auto) 0.1 Baso # (Auto) 0.1 Abs Immat Gran (auto) 0.27 H Absolute Neuts (auto) 6.1 Absolute Nucleated RBC 0.020 H Nucleated RBC % 0.3 H PT 18.8 H INR 1.5 APTT 37.4 H Sodium 134 L Potassium 3.8 Chloride 101 Carbon Dioxide 18 L Anion Gap 15 H BUN 45 H Creatinine 2.65 H Estim Creat Clear Calc 20 Estimated GFR 18 L Glucose 109 POC Capillary Glucose 120 H Lactic Acid 0.8 Calcium 9.5 Phosphorus 4.4 Magnesium 2.0 Total Bilirubin 1.8 H AST 57 H ALT 23 Alkaline Phosphatase 237 H Ammonia 15 Total Protein 6.0 L Albumin 3.8 Random Vancomycin 22.5 H
[2024-11-02 11:30] LABS: Glucose Point of Care 165 mg/dl (65-105)
[2024-11-02] MEDS: BUMETANIDE INJ 1 MG/4 ML VIAL 2 MG IV PUSH (12:27)
--- NOTE | 2024-11-02 12:29 | P.PNIM_ITS ---
Progress Note: A&P Assessment and Plan (1) Alcoholism: Code(s): F10.20 - Alcohol dependence, uncomplicated Status: Chronic (2) Alcohol intoxication: Qualifiers: Complication of substance-induced condition: uncomplicated Qualified Code(s): F10.920 - Alcohol use, unspecified with intoxication, uncomplicated Code(s): F10.929 - Alcohol use, unspecified with intoxication, unspecified Status: Acute (3) Alcohol dependence: Qualifiers: Substance use status: uncomplicated Qualified Code(s): F10.20 - Alcohol dependence, uncomplicated Code(s): F10.20 - Alcohol dependence, uncomplicated Status: Acute (4) Chronic diastolic CHF (congestive heart failure): Code(s): I50.32 - Chronic diastolic (congestive) heart failure Status: Acute (5) CATHRYN (acute kidney injury): Code(s): N17.9 - Acute kidney failure, unspecified Status: Acute (6) Sepsis: Code(s): A41.9 - Sepsis, unspecified organism Status: Acute (7) Septic shock: Code(s): A41.9 - Sepsis, unspecified organism; R65.21 - Severe sepsis with septic shock Status: Acute Plan (1) Septic shock: Code(s): A41.9 - Sepsis, unspecified organism; R65.21 - Severe sepsis with septic shock Status: Acute Assessment and Plan: 10/31: Patient presented with generalized weakness, anasarca, bilateral lower and upper extremity edema, warm and erythematous skin of lower extremity likely cellulitis -etiology of septic shock likely related to UTI, cellulitis -lactic acid has normalized -patient has received albumin for intravascular volume expansion received Levophed, -status post IV fluids -continue albumin -Will switch Zosyn to cefepime (11/01) dc vancomycin (11/01) -10/30: Blood cultures growing Pseudomonas alcaligenes repeat blood culure 11/02, continue cefepime and IV Acute renal failure: Qualifiers: Acute renal failure type: unspecified Qualified Code(s): N17.9 - Acute kidney failure, unspecified Code(s): N17.9 - Acute kidney failure, unspecified Status: Acute Assessment and Plan: Acute kidney injury likely related to hypovolemia, infection, hypotension -receiving albumin for volume expansion -status post maintenance IV fluids for 1000 mL, on albumin for intravascular volume expansion -urine lytes were prerenal -urine eosinophils were negative, mildly elevated CK levels which are improving -appreciate nephrology following the patient -continue to monitor urine output, electrolytes and renal function -encourage p.o. intake (3) Shingles: Code(s): B02.9 - Zoster without complications Status: Acute Assessment and Plan: Continue valacyclovir p.o. and acyclovir or ointment topical (4) Hyponatremia: Code(s): E87.1 - Hypo-osmolality and hyponatremia Status: Acute Assessment and Plan: Chronic hyponatremia likely related to hypovolemic hyponatremia -continue to monitor for now -nephrology following (5) Anasarca: Code(s): R60.1 - Generalized edema Status: Acute Assessment and Plan: Generalized anasarca likely related to cirrhosis/liver disease -patient receiving albumin -Once her blood pressures are improved, will start her home spironolactone, metolazone and Bumex (6) Alcohol dependence: Qualifiers: Substance use status: uncomplicated Qualified Code(s): F10.20 - Alcohol dependence, uncomplicated Code(s): F10.20 - Alcohol dependence, uncomplicated Status: Acute Assessment and Plan: Patient drinks 3 shots of vodka daily -will monitor for alcohol withdrawal (7) Acute on chronic diastolic (congestive) heart failure: Code(s): I50.33 - Acute on chronic diastolic (congestive) heart failure Status: Acute Assessment and Plan: Appreciate, cardiology following the patient, recommended Bumex -patient just came of Levophed,, I feel that she is intravascularly depleted at this time given her infection secondary to UTI and cellulitis -once her blood pressures permit, will start diuretics -patient also has a history of hypertension, takes labetalol, Bumex, metolazone, spironolactone at home (8) Advanced cirrhosis of liver: Code(s): K74.60 - Unspecified cirrhosis of liver Status: Acute Assessment and Plan: Likely related to to alcohol -appreciate GI evaluation recommendation -Oni'manolo DF = 24 10/31: CT scan of the chest, abdomen and pelvis Small right pleural effusion and minimal left pleural effusion. Small focal groundglass opacity right lung, as above, which could reflect focal pulmonary edema or focal pneumonitis. Cirrhotic liver. Cholelithiasis. Impression fractures of L1, L2, L4, and L5. Extensive soft tissue anasarca changes. Small pericardial effusion with pericardial thickening and calcification. Correlate for constrictive or restrictive pericarditis. (9) Anemia: Code(s): D64.9 - Anemia, unspecified Status: Acute Assessment and Plan: Patient has a history of chronic anemia -continue to monitor for now, no acute bleeding noted -will transfuse if hemoglobin < 7.0 (10) ANTHONY (obstructive sleep apnea): Code(s): G47.33 - Obstructive sleep apnea (adult) (pediatric) Status: Acute Assessment and Plan: Obstructive sleep apnea, follows with director of oncology. Dr. 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 Patient feels better, mental status improving. Patient has has some pain over the pacemaker pocket. Still has abdomen distension Exam Narrative: General: Pleasant female in no acute distress HEENT:? Pupils equal and reactive, sclerae is clear, moist oral mucosa Neck:? Supple Respiratory:? decreased at bases, adequate air entry Cardiac:? S1-S2 is normal, regular rate and rhythm Abdomen:? Abdomen is distended, anasarca, hypoactive bowel sounds, nontender, Extremities:? edematous, decreased pedal pulses Neuro:? Patient is more somnolent, likely related to Dilaudid she received early this morning. Opens her eyes to loud voice commands, follows simple commands but goes back to sleep. Skin:?Shingles rash over the right side of the abdomen, erythematous and warm, skin cracking with ulceration Psych:? Normal mentation and affect Objective Data Vital Signs Vital Signs: Vital Signs - 24 hr 11/01/24 14:00 11/01/24 14:00 11/01/24 16:00 Temperature 96.5 F L 96.9 F L Pulse Rate 88 88 91 Respiratory Rate 10 L 14 Blood Pressure 116/71 105/58 L Pulse Oximetry 97 99 Oxygen Delivery 11/01/24 16:00 11/01/24 16:00 11/01/24 18:00 Temperature 97.3 F L Pulse Rate 91 63 97 Respiratory Rate 14 Blood Pressure 98/64 L Pulse Oximetry 99 98 Oxygen Delivery Room Air 11/01/24 18:00 11/01/24 20:00 11/01/24 20:00 Temperature Pulse Rate 102 H 89 Respiratory Rate Blood Pressure Pulse Oximetry Oxygen Delivery Room Air 11/01/24 20:17 11/01/24 22:00 11/02/24 00:00 Temperature 97.8 F Pulse Rate 94 103 H Respiratory Rate 14 Blood Pressure 108/58 L Pulse Oximetry 98 Oxygen Delivery Room Air 11/02/24 00:00 11/02/24 00:00 11/02/24 02:00 Temperature 97.5 F L Pulse Rate 107 H 105 H 105 H Respiratory Rate 19 Blood Pressure 101/52 L Pulse Oximetry 100 Oxygen Delivery 11/02/24 04:00 11/02/24 04:00 11/02/24 04:10 Temperature 97.8 F Pulse Rate 100 102 H 100 Respiratory Rate 18 18 Blood Pressure 102/54 L Pulse Oximetry 100 100 Oxygen Delivery Room Air 11/02/24 06:00 11/02/24 07:32 11/02/24 11:25 Temperature 97.9 F 97.5 F L Pulse Rate 101 H 103 H 96 Respiratory Rate 18 22 H Blood Pressure 102/60 99/52 L Pulse Oximetry 100 100 Oxygen Delivery Intake/Output Intake/Output: Intake & Output 10/30/24 10/31/24 11/01/24 11/02/24 23:59 23:59 23:59 23:59 Intake Total 2163.4 2340 612 Output Total 250 500 290 Balance 1913.4 1840 322 Meds/Results Medications: Active Medications Generic Name Dose Route Start Last Admin Trade Name Freq PRN Reason Stop Dose Admin Acetaminophen 500 mg 11/01/24 14:35 11/02/24 09:55 Acetaminophen 500 Mg Tablet PO 500 mg Q6H PRN Administration Mild Pain (1-3) or Fever Acyclovir 1 applic 11/01/24 17:00 11/02/24 12:27 Acyclovir 5% Ointment 15 Gm Tube TOPICAL 1 applic Q4HWA NEIL Administration Atorvastatin Calcium 10 mg 11/02/24 09:00 11/02/24 09:55 Atorvastatin 10 Mg Tablet PO 10 mg QAM NEIL Administration Calcium Carbonate 200 mg 10/31/24 18:31 10/31/24 18:49 Calcium Carbonate (Tums) 500 Mg (200 Mg Elemental) PO 200 mg Q6H PRN Administration Indigestion Dextrose 12.5 gm 10/31/24 10:36 Dextrose 50% 25 Gm/50 Ml Syringe IV PUSH PRN PRN Hypoglycemia Protocol Epoetin Laith-epbx 10,000 units 11/01/24 10:25 11/01/24 11:36 Epoetin Laith-Epbx 10,000 Units/Ml Vial SUB-Q 10,000 units MOWEFR@09 NEIL Administration Fluticasone Propionate 1 spray 11/01/24 14:35 Fluticasone Propionate 0.05% Na Spr 16 Gm Btl (*Bkc) NASAL DAILY PRN allergies Folic Acid 1 mg 11/01/24 09:00 11/02/24 09:54 Folic Acid 1 Mg/0.2 Ml Inj IV PUSH 1 mg QAM NEIL Administration Glucagon 1 mg 10/31/24 10:36 Glucagon For Inj 1 Mg Vial IM PRN PRN Hypoglycemia Protocol Glucose 15 gm 10/31/24 10:36 Glucose Oral Gel 15 Gm Of Glucse In 37.5 Gm Tube PO PRN PRN Hypoglycemia Protocol Heparin Sodium (Porcine) 5,000 units 10/31/24 21:00 11/01/24 07:45 Heparin Sodium 5,000 Units/Ml Vial SUB-Q Not Given Q12HR NEIL Dextrose 1,000 mls @ 100 mls/hr 10/31/24 10:36 Dextrose 5% 1,000 Ml IVPB PRN PRN Hypoglycemia Protocol Cefepime HCl 1 gm in 50 mls @ 100 mls/hr 11/01/24 14:00 11/02/24 03:54 Maxipime 1 Gm/Ns 50 Ml IVPB Infused Q12H NEIL Infusion Insulin Aspart 1 - 3 units 10/31/24 21:00 11/01/24 20:44 Insulin Aspart (*Bkc) 100 Units/Ml SUB-Q Not Given HS [facility] Protocol Insulin Aspart 3 - 6 units 10/31/24 12:00 11/02/24 12:25 Insulin Aspart (*Bkc) 100 Units/Ml SUB-Q Not Given TIDWM [facility] Protocol Tacrolimus 1 applic 11/01/24 17:00 Tacrolimus 0.03% 30 Gm Ointment TOPICAL BID PRN Eczema Thiamine HCl 200 mg 11/01/24 09:00 11/02/24 09:54 Thiamine Hcl 200 Mg/2 Ml Vial IV PUSH 200 mg QAM NEIL Administration Valacyclovir HCl 1,000 mg 11/01/24 09:00 11/02/24 09:54 Valacyclovir Hcl 500 Mg Tablet PO 1,000 mg Q24H NEIL Administration Radiology Results: ITS Impressions Head CT 10/31/24 05:29 Impression: No intracranial hemorrhage, mass, or acute infarct. Atrophy and chronic white matter changes, as above. Cervical Spine CT 10/31/24 05:30 Impression: No fracture or subluxation of the cervical spine. Minimal degenerative change. Small right pleural effusion. Chest/Abdomen/Pelvis CT 10/31/24 05:51 Impression: Small right pleural effusion and minimal left pleural effusion. Small focal groundglass opacity right lung, as above, which could reflect focal pulmonary edema or focal pneumonitis. Cirrhotic liver. Cholelithiasis. Impression fractures of L1, L2, L4, and L5. Extensive soft tissue anasarca changes. Small pericardial effusion with pericardial thickening and calcification. Correlate for constrictive or restrictive pericarditis. Renal Ultrasound 10/31/24 08:38 IMPRESSION: No definite abnormality. Chest X-Ray 11/01/24 06:09 IMPRESSION: 1. Mild pulmonary edema. Labs Labs: Laboratory Results - last 24 hr 11/01/24 11/01/24 11/02/24 16:13 20:27 00:43 WBC RBC Hgb Hct MCV MCH MCHC RDW Plt Count MPV Immature Gran % (Auto) Neut % (Auto) Lymph % (Auto) Davison % (Auto) Eos % (Auto) Baso % (Auto) Lymph # (Auto) Davison # (Auto) Eos # (Auto) Baso # (Auto) Abs Immat Gran (auto) Absolute Neuts (auto) Absolute Nucleated RBC Nucleated RBC % PT INR APTT Sodium Potassium Chloride Carbon Dioxide Anion Gap BUN Creatinine Estim Creat Clear Calc Estimated GFR Glucose POC Capillary Glucose 120 H 144 H Lactic Acid Calcium Phosphorus Magnesium Total Bilirubin AST ALT Alkaline Phosphatase Ammonia Total Protein Albumin Random Vancomycin 22.5 H 11/02/24 11/02/24 11/02/24 06:45 07:29 11:28 WBC 7.9 RBC 2.46 L Hgb 8.0 L Hct 24.8 L MCV 100.8 H MCH 32.5 MCHC 32.3 RDW 14.5 Plt Count 106 L MPV 9.4 Immature Gran % (Auto) 3.4 H Neut % (Auto) 77.1 H Lymph % (Auto) 9.9 L Davison % (Auto) 7.5 Eos % (Auto) 1.5 Baso % (Auto) 0.6 Lymph # (Auto) 0.78 L Davison # (Auto) 0.6 Eos # (Auto) 0.1 Baso # (Auto) 0.1 Abs Immat Gran (auto) 0.27 H Absolute Neuts (auto) 6.1 Absolute Nucleated RBC 0.020 H Nucleated RBC % 0.3 H PT 18.8 H INR 1.5 APTT 37.4 H Sodium 134 L Potassium 3.8 Chloride 101 Carbon Dioxide 18 L Anion Gap 15 H BUN 45 H Creatinine 2.65 H Estim Creat Clear Calc 20 Estimated GFR 18 L Glucose 109 POC Capillary Glucose 120 H 165 H Lactic Acid 0.8 Calcium 9.5 Phosphorus 4.4 Magnesium 2.0 Total Bilirubin 1.8 H AST 57 H ALT 23 Alkaline Phosphatase 237 H Ammonia 15 Total Protein 6.0 L Albumin 3.8 Random Vancomycin
--- NOTE | 2024-11-02 12:57 | WPDGIPROGNO ---
Progress Note: A&P Assessment and Plan (1) Advanced cirrhosis of liver: Code(s): K74.60 - Unspecified cirrhosis of liver Status: Acute Assessment and Plan: The patient has recovered from sepsis secondary to UTI and cellulitis which are currently being treated. She has a history of esophageal varices treated with variceal ligation 2 years ago. She is currently on labetalol as a beta-walter for the treatment of hypertension. A suggested before, after discharged, will consider discussing with her treating provider to switch treatment to carvedilol, for better prophylaxis of variceal bleeding and preventing progression of liver disease. Time Spent With Patient Time with patient: 15 - 25 minutes Subjective Date/time seen: 11/02/24 12:57 Interval history: The patient feels better today. No abdominal pain. Exam Narrative: Alert and oriented x3. Lungs: Normal to auscultation. Abdomen: Abdominal wall edema, no shifting dullness. Extremities: Severe bilateral pedal and pretibial erythema, scaling and friability. Neurological: Intact. Objective Data Vital Signs Vital Signs: Vital Signs - 24 hr 11/01/24 14:00 11/01/24 14:00 11/01/24 16:00 Temperature 96.5 F L 96.9 F L Pulse Rate 88 88 91 Respiratory Rate 10 L 14 Blood Pressure 116/71 105/58 L Pulse Oximetry 97 99 Oxygen Delivery 11/01/24 16:00 11/01/24 16:00 11/01/24 18:00 Temperature 97.3 F L Pulse Rate 91 63 97 Respiratory Rate 14 Blood Pressure 98/64 L Pulse Oximetry 99 98 Oxygen Delivery Room Air 11/01/24 18:00 11/01/24 20:00 11/01/24 20:00 Temperature Pulse Rate 102 H 89 Respiratory Rate Blood Pressure Pulse Oximetry Oxygen Delivery Room Air 11/01/24 20:17 11/01/24 22:00 11/02/24 00:00 Temperature 97.8 F Pulse Rate 94 103 H Respiratory Rate 14 Blood Pressure 108/58 L Pulse Oximetry 98 Oxygen Delivery Room Air 11/02/24 00:00 11/02/24 00:00 11/02/24 02:00 Temperature 97.5 F L Pulse Rate 107 H 105 H 105 H Respiratory Rate 19 Blood Pressure 101/52 L Pulse Oximetry 100 Oxygen Delivery 11/02/24 04:00 11/02/24 04:00 11/02/24 04:10 Temperature 97.8 F Pulse Rate 100 102 H 100 Respiratory Rate 18 18 Blood Pressure 102/54 L Pulse Oximetry 100 100 Oxygen Delivery Room Air 11/02/24 06:00 11/02/24 07:32 11/02/24 11:25 Temperature 97.9 F 97.5 F L Pulse Rate 101 H 103 H 96 Respiratory Rate 18 22 H Blood Pressure 102/60 99/52 L Pulse Oximetry 100 100 Oxygen Delivery Intake/Output Intake/Output: Intake & Output 10/30/24 10/31/24 11/01/24 11/02/24 23:59 23:59 23:59 23:59 Intake Total 2163.4 2340 852 Output Total 250 500 290 Balance 1913.4 1840 562 Meds/Results Medications: Active Medications Generic Name Dose Route Start Last Admin Trade Name Freq PRN Reason Stop Dose Admin Acetaminophen 500 mg 11/01/24 14:35 11/02/24 09:55 Acetaminophen 500 Mg Tablet PO 500 mg Q6H PRN Administration Mild Pain (1-3) or Fever Acyclovir 1 applic 11/01/24 17:00 11/02/24 12:27 Acyclovir 5% Ointment 15 Gm Tube TOPICAL 1 applic Q4HWA NEIL Administration Atorvastatin Calcium 10 mg 11/02/24 09:00 11/02/24 09:55 Atorvastatin 10 Mg Tablet PO 10 mg QAM NEIL Administration Calcium Carbonate 200 mg 10/31/24 18:31 10/31/24 18:49 Calcium Carbonate (Tums) 500 Mg (200 Mg Elemental) PO 200 mg Q6H PRN Administration Indigestion Dextrose 12.5 gm 10/31/24 10:36 Dextrose 50% 25 Gm/50 Ml Syringe IV PUSH PRN PRN Hypoglycemia Protocol Epoetin Alith-epbx 10,000 units 11/01/24 10:25 11/01/24 11:36 Epoetin Laith-Epbx 10,000 Units/Ml Vial SUB-Q 10,000 units MOWEFR@09 NEIL Administration Fluticasone Propionate 1 spray 11/01/24 14:35 Fluticasone Propionate 0.05% Na Spr 16 Gm Btl (*Bkc) NASAL DAILY PRN allergies Folic Acid 1 mg 11/01/24 09:00 11/02/24 09:54 Folic Acid 1 Mg/0.2 Ml Inj IV PUSH 1 mg QAM NEIL Administration Glucagon 1 mg 10/31/24 10:36 Glucagon For Inj 1 Mg Vial IM PRN PRN Hypoglycemia Protocol Glucose 15 gm 10/31/24 10:36 Glucose Oral Gel 15 Gm Of Glucse In 37.5 Gm Tube PO PRN PRN Hypoglycemia Protocol Heparin Sodium (Porcine) 5,000 units 10/31/24 21:00 11/01/24 07:45 Heparin Sodium 5,000 Units/Ml Vial SUB-Q Not Given Q12HR NEIL Dextrose 1,000 mls @ 100 mls/hr 10/31/24 10:36 Dextrose 5% 1,000 Ml IVPB PRN PRN Hypoglycemia Protocol Cefepime HCl 1 gm in 50 mls @ 100 mls/hr 11/01/24 14:00 11/02/24 03:54 Maxipime 1 Gm/Ns 50 Ml IVPB Infused Q12H NEIL Infusion Insulin Aspart 1 - 3 units 10/31/24 21:00 11/01/24 20:44 Insulin Aspart (*Bkc) 100 Units/Ml SUB-Q Not Given HS NEIL Protocol Insulin Aspart 3 - 6 units 10/31/24 12:00 11/02/24 12:25 Insulin Aspart (*Bkc) 100 Units/Ml SUB-Q Not Given TIDWM [facility] Protocol Tacrolimus 1 applic 11/01/24 17:00 Tacrolimus 0.03% 30 Gm Ointment TOPICAL BID PRN Eczema Thiamine HCl 200 mg 11/01/24 09:00 11/02/24 09:54 Thiamine Hcl 200 Mg/2 Ml Vial IV PUSH 200 mg QAM NEIL Administration Valacyclovir HCl 1,000 mg 11/01/24 09:00 11/02/24 09:54 Valacyclovir Hcl 500 Mg Tablet PO 1,000 mg Q24H NEIL Administration Radiology Results: ITS Impressions Head CT 10/31/24 05:29 Impression: No intracranial hemorrhage, mass, or acute infarct. Atrophy and chronic white matter changes, as above. Cervical Spine CT 10/31/24 05:30 Impression: No fracture or subluxation of the cervical spine. Minimal degenerative change. Small right pleural effusion. Chest/Abdomen/Pelvis CT 10/31/24 05:51 Impression: Small right pleural effusion and minimal left pleural effusion. Small focal groundglass opacity right lung, as above, which could reflect focal pulmonary edema or focal pneumonitis. Cirrhotic liver. Cholelithiasis. Impression fractures of L1, L2, L4, and L5. Extensive soft tissue anasarca changes. Small pericardial effusion with pericardial thickening and calcification. Correlate for constrictive or restrictive pericarditis. Renal Ultrasound 10/31/24 08:38 IMPRESSION: No definite abnormality. Chest X-Ray 11/01/24 06:09 IMPRESSION: 1. Mild pulmonary edema. Labs Labs: Laboratory Results - last 24 hr 11/01/24 11/01/24 11/02/24 16:13 20:27 00:43 WBC RBC Hgb Hct MCV MCH MCHC RDW Plt Count MPV Immature Gran % (Auto) Neut % (Auto) Lymph % (Auto) Simpson % (Auto) Eos % (Auto) Baso % (Auto) Lymph # (Auto) Simpson # (Auto) Eos # (Auto) Baso # (Auto) Abs Immat Gran (auto) Absolute Neuts (auto) Absolute Nucleated RBC Nucleated RBC % PT INR APTT Sodium Potassium Chloride Carbon Dioxide Anion Gap BUN Creatinine Estim Creat Clear Calc Estimated GFR Glucose POC Capillary Glucose 120 H 144 H Lactic Acid Calcium Phosphorus Magnesium Total Bilirubin AST ALT Alkaline Phosphatase Ammonia Total Protein Albumin Random Vancomycin 22.5 H 11/02/24 11/02/24 11/02/24 06:45 07:29 11:28 WBC 7.9 RBC 2.46 L Hgb 8.0 L Hct 24.8 L MCV 100.8 H MCH 32.5 MCHC 32.3 RDW 14.5 Plt Count 106 L MPV 9.4 Immature Gran % (Auto) 3.4 H Neut % (Auto) 77.1 H Lymph % (Auto) 9.9 L Simpson % (Auto) 7.5 Eos % (Auto) 1.5 Baso % (Auto) 0.6 Lymph # (Auto) 0.78 L Simpson # (Auto) 0.6 Eos # (Auto) 0.1 Baso # (Auto) 0.1 Abs Immat Gran (auto) 0.27 H Absolute Neuts (auto) 6.1 Absolute Nucleated RBC 0.020 H Nucleated RBC % 0.3 H PT 18.8 H INR 1.5 APTT 37.4 H Sodium 134 L Potassium 3.8 Chloride 101 Carbon Dioxide 18 L Anion Gap 15 H BUN 45 H Creatinine 2.65 H Estim Creat Clear Calc 20 Estimated GFR 18 L Glucose 109 POC Capillary Glucose 120 H 165 H Lactic Acid 0.8 Calcium 9.5 Phosphorus 4.4 Magnesium 2.0 Total Bilirubin 1.8 H AST 57 H ALT 23 Alkaline Phosphatase 237 H Ammonia 15 Total Protein 6.0 L Albumin 3.8 Random Vancomycin
--- NOTE | 2024-11-02 15:33 | ECG_ITS ---
Test Date: 2024-11-02 15:42:00 Measurements Intervals [place] Rate: 100 P: 54 [place]: 185 QRS: 94 QRSD: 74 T: -71 QT: 336 QTc: 435 Interpretive Statements SINUS TACHYCARDIA WITH OCCASIONAL SUPRAVENTRICULAR PREMATURE COMPLEXES BORDERLINE RIGHT AXIS DEVIATION [QRS AXIS > 90] LOW QRS VOLTAGE [QRS DEFLECTION < 0.5/1.0 mV IN LIMB/CHEST LEADS] SEPTAL MYOCARDIAL INFARCTION [40+ ms Q WAVE IN V1/V2], PROBABLY OLD WARNING: DATA QUALITY MAY AFFECT INTERPRETATION Compared to ECG 10/30/2024 23:06:26 Myocardial infarct finding now present Sinus rhythm no longer present Electronically Signed On 11-04-2024 18:16:48 [employer] by Sarah Aj M.D.
[2024-11-02 16:17] LABS: Glucose Point of Care 212 mg/dl (65-105)
[2024-11-02] MEDS: INSULIN ASPART (*BKC) 100 UNITS/ML SUB-Q ×2 (16:36→21:55)
[2024-11-02 22:11] LABS: Glucose Point of Care 223 mg/dl (65-105)
[2024-11-03] VITALS (10 sets, daily range): BP systolic 99–120; BP diastolic 44–74; PULSE 91–118; RESP 14–20; TEMP 35.9–36.5; O2SAT 100
[2024-11-03] MEDS: CEFEPIME 1 GM/NS 50 ML 1 GM/50 ML BAG IVPB ×2 (04:17→14:52)
[2024-11-03] MEDS: ACYCLOVIR 5% OINTMENT 15 GM TUBE 1 APPLIC TOPICAL ×5 (04:18→21:24)
[2024-11-03 04:40] LABS: Hematocrit 25.1 % (37.0-47.0); Hemoglobin 8.2 g/dL (12.0-15.0); Mean Corpuscular HGB Conc 32.7 g/dl (32-36); Mean Corpuscular Hemoglobin 32.3 pg (26-34); Mean Corpuscular Volume 98.8 fl (80-100); Mean Platelet Volume 9.6 fl (7.4-10.4); Platelet Count Result 104 k/mm3 (150-375); Red Blood Count 2.54 M/mm3 (4.2-5.4); Red Cell Distribution Width 14.5 % (11.5-14.5)
[2024-11-03 04:51] LABS: Alanine Aminotransferase 25 U/L (6-35); Albumin Level 3.7 g/dL (3.5-5.1); Alkaline Phosphatase 241 U/L (38-126); Anion Gap 16 mmol/L (4-12); Aspartate Amino Transferase 58 U/L (14-36); Bilirubin,Total 1.7 mg/dL (0.2-1.3); Blood Urea Nitrogen 47 mg/dL (7-17); Calcium 9.2 mg/dL (8.4-10.2); Carbon Dioxide 18 mmol/L (22-30); Chloride 101 mmol/L (98-107); Estimated CRCL calculation 20 ml/min; Estimated Glomerular Filt Rate 18; Glucose 147 mg/dL (65-110); Magnesium 1.9 mg/dL (1.6-2.3); Potassium 3.4 mmol/L (3.4-5.0); Sodium 135 mmol/L (137-145)
[2024-11-03] MEDS: ACETAMINOPHEN 500 MG TABLET PO (04:51)
[2024-11-03 05:05] LABS: Anisocytosis 1+; Eosinophils Absolute Manual 0.35 K/mm3 (0.02-0.50); Eosinophils Percent Manual 5 % (0-4); Lymphocytes Absolute Manual 0.56 K/mm3 (1.1-4.5); Microcytosis 1+ (NORMAL); Monocytes Absolute Manual 0.21 K/mm3 (0.1-0.90); Monocytes Percent Manual 3 % (3-9); Myelocytes Percent 1 %; Neutrophils Percent Manual 83 % (46-73); Nucleated Red Blood Cells 1 %; Platelet Estimate Decreased (Adequate); Schistocytes None Seen; Smudge Cells PRESENT; Total Cells Counted 100
[2024-11-03 08:48] LABS: Glucose Point of Care 152 mg/dl (65-105)
--- NOTE | 2024-11-03 09:06 | P.PNNP_ITS ---
Progress Note: A&P Assessment and Plan (1) CATHRYN (acute kidney injury): Code(s): N17.9 - Acute kidney failure, unspecified Status: Acute Assessment and Plan: * as noted on admission * suspect multifactorial: * prerenal factors * Sepsis with Gram-negative bacilli * hemodynamic instability/shock * BP medications + diuretics prior to admission * other (?) * evaluation to date noted: * renal U/S + CT A/P without obstruction * urine eosinophils negative * urine electrolytes prerenal * CPK mildly elevated (bet not enough to affect kidney function) * Positive blood cultures but negative urine culture * creatinine level Came down a little bit. * Albumin level Is about the same in spite of being off albumin supplements. * The patient is not on diuretics and her blood pressure is better. * The patient is on Vanco plus cefepime. (2) Chronic kidney disease, stage 3: Code(s): N18.30 - Chronic kidney disease, stage 3 unspecified Status: Chronic Assessment and Plan: * creatinine has fluctuated in the last several years * seems to average out around 1.3 - 1.7mg/dl * however, has been as low as 1.0 - 1.1mg/dl as well * due to hypertension, diabetes, ANTHONY, and age along with her fluctuating fluid/volume status (due to CHF and liver disease) + chronic need for diuretic therapy (3) Septic shock: Code(s): A41.9 - Sepsis, unspecified organism; R65.21 - Severe sepsis with septic shock Status: Acute Assessment and Plan: * based on presentation * suspected source = LE cellulitis * lactic acid has normalized , afebrile, white count is only 7 * Initial blood cultures positive for Pseudomonas. repeats are pending. * urine culture negative * on vancomycin plus cefepime (4) Hyponatremia: Code(s): E87.1 - Hypo-osmolality and hyponatremia Status: Acute Assessment and Plan: * chronic issue/problem * baseline sodium runs ~ 127 - 132 in the last few years * multiple issues contributing: * anasarca/fluid retention * CHF * liver cirrhosis * renal insufficiency/CKD * chronic diuretic therapy (loop + thiazide diuretic use) * alcohol use * previous outpatient work-up (TSH, cortisol, SPE, UPE...etc) essentially negative * was on salt tabs + diuretics as an outpatient * Sodium level is improved to 135 (5) Anasarca: Code(s): R60.1 - Generalized edema Status: Acute Assessment and Plan: * likely seconday to CHF and liver cirrhosis * albumin level is better. We can stop the IV albumin. * However she still has lots of swelling and pulmonary edema on her chest x- ray. since the creatinine is better in spite of the diuretics will give more diuretics. Restart spironolactone once the creatinine is a little better (6) Acute on chronic diastolic (congestive) heart failure: Code(s): I50.33 - Acute on chronic diastolic (congestive) heart failure Status: Acute Assessment and Plan: * Cardiology following * contributing to #5 * attempt diuresis (7) Advanced cirrhosis of liver: Code(s): K74.60 - Unspecified cirrhosis of liver Status: Acute Assessment and Plan: * presumably due to alcohol intake * Seen on CT abdomen * contributing to #5 * Gastroenterology consulted \\ (8) Anemia: Code(s): D64.9 - Anemia, unspecified Status: Acute Assessment and Plan: * chronic issue * Hemoglobin 8.4 then 7.9 then 8. * Renal failure may be contributing. 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 She ate about half her breakfast. Exam Narrative: WDWN in NAD a bit sleepy from recent medicine. skin no rash or sq nodules head ncat lungs clear bilateral cor reg no rub abd BS+ nontender and soft ext 2+ bilateral edema. Objective Data Vital Signs Vital Signs: Vital Signs - 24 hr 11/02/24 10:00 11/02/24 11:25 11/02/24 12:00 Temperature 97.5 F L Pulse Rate 101 H 96 Respiratory Rate 22 H Blood Pressure 99/52 L Pulse Oximetry 100 Oxygen Delivery Room Air 11/02/24 12:00 11/02/24 14:00 11/02/24 15:24 Temperature 97.6 F Pulse Rate 112 H 97 97 Respiratory Rate 20 Blood Pressure 120/61 Pulse Oximetry 100 Oxygen Delivery 11/02/24 16:00 11/02/24 16:00 11/02/24 18:00 Temperature Pulse Rate 117 H 101 H Respiratory Rate Blood Pressure Pulse Oximetry Oxygen Delivery Room Air 11/02/24 19:04 11/02/24 20:00 11/02/24 20:00 Temperature 98.2 F Pulse Rate 71 97 Respiratory Rate 18 Blood Pressure 139/65 Pulse Oximetry 100 Oxygen Delivery Room Air 11/02/24 22:00 11/03/24 00:00 11/03/24 00:00 Temperature Pulse Rate 100 100 Respiratory Rate Blood Pressure Pulse Oximetry Oxygen Delivery Room Air 11/03/24 02:00 11/03/24 02:03 11/03/24 04:00 Temperature Pulse Rate 94 93 Respiratory Rate 14 Blood Pressure 99/51 L Pulse Oximetry 100 Oxygen Delivery Room Air 11/03/24 04:00 11/03/24 04:00 11/03/24 06:00 Temperature 97.7 F Pulse Rate 100 118 H 101 H Respiratory Rate 14 Blood Pressure 108/53 L Pulse Oximetry 100 Oxygen Delivery 11/03/24 07:54 Temperature 97.5 F L Pulse Rate 100 Respiratory Rate 18 Blood Pressure 104/44 L Pulse Oximetry 100 Oxygen Delivery Intake/Output Intake/Output: Intake & Output 10/31/24 11/01/24 11/02/24 11/03/24 23:59 23:59 23:59 23:59 Intake Total 2163.4 2340 1692 75 Output Total 250 500 590 450 Balance 1913.4 1840 1102 -375 Meds/Results Medications: Active Medications Generic Name Dose Route Start Last Admin Trade Name Freq PRN Reason Stop Dose Admin Acetaminophen 500 mg 11/01/24 14:35 11/03/24 04:51 Acetaminophen 500 Mg Tablet PO 500 mg Q6H PRN Administration Mild Pain (1-3) or Fever Acyclovir 1 applic 11/01/24 17:00 11/03/24 04:18 Acyclovir 5% Ointment 15 Gm Tube TOPICAL 1 applic [id number] NEIL Administration Atorvastatin Calcium 10 mg 11/02/24 09:00 11/02/24 09:55 Atorvastatin 10 Mg Tablet PO 10 mg QAM NEIL Administration Calcium Carbonate 200 mg 10/31/24 18:31 10/31/24 18:49 Calcium Carbonate (Tums) 500 Mg (200 Mg Elemental) PO 200 mg Q6H PRN Administration Indigestion Dextrose 12.5 gm 10/31/24 10:36 Dextrose 50% 25 Gm/50 Ml Syringe IV PUSH PRN PRN Hypoglycemia Protocol Epoetin Laith-epbx 10,000 units 11/01/24 10:25 11/01/24 11:36 Epoetin Laith-Epbx 10,000 Units/Ml Vial SUB-Q 10,000 units [id number]@09 NEIL Administration Fluticasone Propionate 1 spray 11/01/24 14:35 Fluticasone Propionate 0.05% Na Spr 16 Gm Btl (*Bkc) NASAL DAILY PRN allergies Folic Acid 1 mg 11/01/24 09:00 11/02/24 09:54 Folic Acid 1 Mg/0.2 Ml Inj IV PUSH 1 mg QAM NEIL Administration Glucagon 1 mg 10/31/24 10:36 Glucagon For Inj 1 Mg Vial IM PRN PRN Hypoglycemia Protocol Glucose 15 gm 10/31/24 10:36 Glucose Oral Gel 15 Gm Of Glucse In 37.5 Gm Tube PO PRN PRN Hypoglycemia Protocol Heparin Sodium (Porcine) 5,000 units 10/31/24 21:00 11/01/24 07:45 Heparin Sodium 5,000 Units/Ml Vial SUB-Q Not Given Q12HR NEIL Dextrose 1,000 mls @ 100 mls/hr 10/31/24 10:36 Dextrose 5% 1,000 Ml IVPB PRN PRN Hypoglycemia Protocol Cefepime HCl 1 gm in 50 mls @ 100 mls/hr 11/01/24 14:00 11/03/24 04:17 Maxipime 1 Gm/Ns 50 Ml IVPB 100 mls/hr Q12H NEIL Administration Insulin Aspart 1 - 3 units 10/31/24 21:00 11/02/24 21:55 Insulin Aspart (*Bkc) 100 Units/Ml SUB-Q 1 units HS [facility] Administration Protocol Insulin Aspart 3 - 6 units 10/31/24 12:00 11/02/24 16:36 Insulin Aspart (*Bkc) 100 Units/Ml SUB-Q 3 units TIDWM [facility] Administration Protocol Sodium Bicarbonate 1,300 mg 11/03/24 09:00 Sodium Bicarbonate Tab 650 Mg Tablet PO BIDPC NEIL Tacrolimus 1 applic 11/01/24 17:00 Tacrolimus 0.03% 30 Gm Ointment TOPICAL BID PRN Eczema Thiamine HCl 200 mg 11/01/24 09:00 11/02/24 09:54 Thiamine Hcl 200 Mg/2 Ml Vial IV PUSH 200 mg QAM NEIL Administration Valacyclovir HCl 1,000 mg 11/01/24 09:00 11/02/24 09:54 Valacyclovir Hcl 500 Mg Tablet PO 1,000 mg Q24H NEIL Administration Radiology Results: ITS Impressions Head CT 10/31/24 05:29 Impression: No intracranial hemorrhage, mass, or acute infarct. Atrophy and chronic white matter changes, as above. Cervical Spine CT 10/31/24 05:30 Impression: No fracture or subluxation of the cervical spine. Minimal degenerative change. Small right pleural effusion. Chest/Abdomen/Pelvis CT 10/31/24 05:51 Impression: Small right pleural effusion and minimal left pleural effusion. Small focal groundglass opacity right lung, as above, which could reflect focal pulmonary edema or focal pneumonitis. Cirrhotic liver. Cholelithiasis. Impression fractures of L1, L2, L4, and L5. Extensive soft tissue anasarca changes. Small pericardial effusion with pericardial thickening and calcification. Correlate for constrictive or restrictive pericarditis. Renal Ultrasound 10/31/24 08:38 IMPRESSION: No definite abnormality. Chest X-Ray 11/01/24 06:09 IMPRESSION: 1. Mild pulmonary edema. Labs Labs: Laboratory Results - last 24 hr 11/02/24 11/02/24 11/02/24 11:28 15:49 21:54 WBC RBC Hgb Hct MCV MCH MCHC RDW Plt Count MPV Immature Gran % (Auto) Neut % (Auto) Lymph % (Auto) [place] % (Auto) Eos % (Auto) Baso % (Auto) Lymph # (Auto) [place] # (Auto) Eos # (Auto) Baso # (Auto) Abs Immat Gran (auto) Absolute Neuts (auto) Absolute Nucleated RBC Total Counted Neutrophils % (Manual) Lymphocytes % (Manual) Monocytes % (Manual) Eosinophils % (Manual) Myelocytes % Nucleated RBC % Abs Lymphs (Manual) Abs Monocytes (Manual) Absolute Eos (Manual) Nucleated RBCs Smudge Cells Platelet Estimate Anisocytosis Microcytosis Schistocytes Sodium Potassium Chloride Carbon Dioxide Anion Gap BUN Creatinine Estim Creat Clear Calc Estimated GFR Glucose POC Capillary Glucose 165 H 212 H 223 H Calcium Magnesium Total Bilirubin AST ALT Alkaline Phosphatase Total Protein Albumin 11/03/24 11/03/24 04:21 07:49 WBC 7.0 RBC 2.54 L Hgb 8.2 L Hct 25.1 L MCV 98.8 MCH 32.3 MCHC 32.7 RDW 14.5 Plt Count 104 L MPV 9.6 Immature Gran % (Auto) Not Reportable Neut % (Auto) Not Reportable Lymph % (Auto) Not Reportable [place] % (Auto) Not Reportable Eos % (Auto) Not Reportable Baso % (Auto) Not Reportable Lymph # (Auto) Not Reportable [place] # (Auto) Not Reportable Eos # (Auto) Not Reportable Baso # (Auto) Not Reportable Abs Immat Gran (auto) Not Reportable Absolute Neuts (auto) Not Reportable Absolute Nucleated RBC Not Reportable Total Counted 100 Neutrophils % (Manual) 83 H Lymphocytes % (Manual) 8.0 L Monocytes % (Manual) 3 Eosinophils % (Manual) 5 H Myelocytes % 1 Nucleated RBC % Not Reportable Abs Lymphs (Manual) 0.56 L Abs Monocytes (Manual) 0.21 Absolute Eos (Manual) 0.35 Nucleated RBCs 1 Smudge Cells Present Platelet Estimate Decreased Anisocytosis 1+ Microcytosis 1+ Schistocytes None seen Sodium 135 L Potassium 3.4 Chloride 101 Carbon Dioxide 18 L Anion Gap 16 H BUN 47 H Creatinine 2.60 H Estim Creat Clear Calc 20 Estimated GFR 18 L Glucose 147 H POC Capillary Glucose 152 H Calcium 9.2 Magnesium 1.9 Total Bilirubin 1.7 H AST 58 H ALT 25 Alkaline Phosphatase 241 H Total Protein 6.0 L Albumin 3.7
[2024-11-03] MEDS: SODIUM BICARBONATE TAB 650 MG TABLET 1300 MG PO ×2 (09:21→16:48)
[2024-11-03] MEDS: FOLIC ACID 1 MG/0.2 ML INJ IV PUSH (09:21)
[2024-11-03] MEDS: valACYclovir HCL 500 MG TABLET 1000 MG PO (09:21)
[2024-11-03] MEDS: ATORVASTATIN 10 MG TABLET PO (09:21)
[2024-11-03] MEDS: THIAMINE HCL 200 MG/2 ML VIAL IV PUSH (09:22)
[2024-11-03] MEDS: BUMETANIDE INJ 1 MG/4 ML VIAL 2 MG IV PUSH (09:29)
--- NOTE | 2024-11-03 09:55 | PM.IMPN ---
Progress Note: A&P Assessment and Plan (1) Alcoholism: Code(s): F10.20 - Alcohol dependence, uncomplicated Status: Chronic (2) Alcohol intoxication: Qualifiers: Complication of substance-induced condition: uncomplicated Qualified Code(s): F10.920 - Alcohol use, unspecified with intoxication, uncomplicated Code(s): F10.929 - Alcohol use, unspecified with intoxication, unspecified Status: Acute (3) Alcohol dependence: Qualifiers: Substance use status: uncomplicated Qualified Code(s): F10.20 - Alcohol dependence, uncomplicated Code(s): F10.20 - Alcohol dependence, uncomplicated Status: Acute (4) Chronic diastolic CHF (congestive heart failure): Code(s): I50.32 - Chronic diastolic (congestive) heart failure Status: Acute (5) CATHRYN (acute kidney injury): Code(s): N17.9 - Acute kidney failure, unspecified Status: Acute (6) Sepsis: Code(s): A41.9 - Sepsis, unspecified organism Status: Acute (7) Septic shock: Code(s): A41.9 - Sepsis, unspecified organism; R65.21 - Severe sepsis with septic shock Status: Acute Plan (1) Septic shock: Code(s): A41.9 - Sepsis, unspecified organism; R65.21 - Severe sepsis with septic shock Status: Acute Assessment and Plan: 10/31: Patient presented with generalized weakness, anasarca, bilateral lower and upper extremity edema, warm and erythematous skin of lower extremity likely cellulitis -etiology of septic shock likely related to UTI, cellulitis -lactic acid has normalized -patient has received albumin for intravascular volume expansion received Levophed, -status post IV fluids -continue albumin -chagned from Zosyn to cefepime (11/01) dc vancomycin (11/01) -10/30: Blood cultures growing Pseudomonas alcaligenes repeated blood culure on 11/02,no growth now continue cefepime IV Acute renal failure: Qualifiers: Acute renal failure type: unspecified Qualified Code(s): N17.9 - Acute kidney failure, unspecified Code(s): N17.9 - Acute kidney failure, unspecified Status: Acute Assessment and Plan: Acute kidney injury likely related to hypovolemia, infection, hypotension -receiving albumin for volume expansion -status post maintenance IV fluids for 1000 mL, on albumin for intravascular volume expansion -urine lytes were prerenal -urine eosinophils were negative, mildly elevated CK levels which are improving -appreciate nephrology following the patient -continue to monitor urine output, electrolytes and renal function -encourage p.o. intake (3) Shingles: Code(s): B02.9 - Zoster without complications Status: Acute Assessment and Plan: Continue valacyclovir p.o. and acyclovir or ointment topical (4) Hyponatremia: Code(s): E87.1 - Hypo-osmolality and hyponatremia Status: Acute Assessment and Plan: Chronic hyponatremia likely related to hypovolemic hyponatremia -continue to monitor for now -nephrology following (5) Anasarca: Code(s): R60.1 - Generalized edema Status: Acute Assessment and Plan: Generalized anasarca likely related to cirrhosis/liver disease -patient receiving albumin -Once her blood pressures are improved, will start her home spironolactone, metolazone and Bumex (6) Alcohol dependence: Qualifiers: Substance use status: uncomplicated Qualified Code(s): F10.20 - Alcohol dependence, uncomplicated Code(s): F10.20 - Alcohol dependence, uncomplicated Status: Acute Assessment and Plan: Patient drinks 3 shots of vodka daily -will monitor for alcohol withdrawal (7) Acute on chronic diastolic (congestive) heart failure: Code(s): I50.33 - Acute on chronic diastolic (congestive) heart failure Status: Acute Assessment and Plan: Appreciate, cardiology following the patient, recommended Bumex -patient just came of Levophed,, I feel that she is intravascularly depleted at this time given her infection secondary to UTI and cellulitis -once her blood pressures permit, will start diuretics -patient also has a history of hypertension, takes labetalol, Bumex, metolazone, spironolactone at home (8) Advanced cirrhosis of liver: Code(s): K74.60 - Unspecified cirrhosis of liver Status: Acute Assessment and Plan: Likely related to to alcohol -appreciate GI evaluation recommendation -Oni'manolo DF = 24 10/31: CT scan of the chest, abdomen and pelvis Small right pleural effusion and minimal left pleural effusion. Small focal groundglass opacity right lung, as above, which could reflect focal pulmonary edema or focal pneumonitis. Cirrhotic liver. Cholelithiasis. Impression fractures of L1, L2, L4, and L5. Extensive soft tissue anasarca changes. Small pericardial effusion with pericardial thickening and calcification. Correlate for constrictive or restrictive pericarditis. 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 Dr. Samayoa (11) Type 2 diabetes mellitus with diabetic peripheral angiopathy without gangrene: Qualifiers: Diabetes mellitus half-way insulin use: with intermediate card tender use Qualified Code(s): E11.51 - Type 2 diabetes mellitus with diabetic peripheral angiopathy without gangrene; Z79.4 - USP (current) use of insulin Code(s): E11.51 - Type 2 diabetes mellitus with diabetic peripheral angiopathy without gangrene Status: Acute Assessment and Plan: Accu-Cheks and sliding scale insulin Plan DVT prophylaxis: Hold heparin subQ due to decrease in platelets Stress ulcer prophylaxis: Continue Protonix Nutrition: Diabetic diet Subjective Date/time seen: 11/03/24 09:55 Interval history: I saw exam patient in presents of patient's . Patient feels better, mental status improving. abdomen distension improves, 2nd BCX negative of growth. Patient still has general weakness. Denies abdomen pain chest pain, palpitation Exam Narrative: General: Pleasant female in no acute distress HEENT:? Pupils equal and reactive, sclerae is clear, moist oral mucosa Neck:? Supple Respiratory:? decreased at bases, adequate air entry Cardiac:? S1-S2 is normal, regular rate and rhythm Abdomen:? Abdomen is distended, anasarca, hypoactive bowel sounds, nontender, Extremities:? edematous, decreased pedal pulses Neuro:? Patient is more somnolent, likely related to Dilaudid she received early this morning. Opens her eyes to loud voice commands, follows simple commands but goes back to sleep. Skin:?Shingles rash over the right side of the abdomen, erythematous and warm, skin cracking with ulceration Psych:? Normal mentation and affect Extrem: General: no pedal edema Objective Data Vital Signs Vital Signs: Vital Signs - 24 hr 11/02/24 10:00 11/02/24 11:25 11/02/24 12:00 Temperature 97.5 F L Pulse Rate 101 H 96 Respiratory Rate 22 H Blood Pressure 99/52 L Pulse Oximetry 100 Oxygen Delivery Room Air 11/02/24 12:00 11/02/24 14:00 11/02/24 15:24 Temperature 97.6 F Pulse Rate 112 H 97 97 Respiratory Rate 20 Blood Pressure 120/61 Pulse Oximetry 100 Oxygen Delivery 11/02/24 16:00 11/02/24 16:00 11/02/24 18:00 Temperature Pulse Rate 117 H 101 H Respiratory Rate Blood Pressure Pulse Oximetry Oxygen Delivery Room Air 11/02/24 19:04 11/02/24 20:00 11/02/24 20:00 Temperature 98.2 F Pulse Rate 71 97 Respiratory Rate 18 Blood Pressure 139/65 Pulse Oximetry 100 Oxygen Delivery Room Air 11/02/24 22:00 11/03/24 00:00 11/03/24 00:00 Temperature Pulse Rate 100 100 Respiratory Rate Blood Pressure Pulse Oximetry Oxygen Delivery Room Air 11/03/24 02:00 11/03/24 02:03 11/03/24 04:00 Temperature Pulse Rate 94 93 Respiratory Rate 14 Blood Pressure 99/51 L Pulse Oximetry 100 Oxygen Delivery Room Air 11/03/24 04:00 11/03/24 04:00 11/03/24 06:00 Temperature 97.7 F Pulse Rate 100 118 H 101 H Respiratory Rate 14 Blood Pressure 108/53 L Pulse Oximetry 100 Oxygen Delivery 11/03/24 07:54 Temperature 97.5 F L Pulse Rate 100 Respiratory Rate 18 Blood Pressure 104/44 L Pulse Oximetry 100 Oxygen Delivery Intake/Output Intake/Output: Intake & Output 10/31/24 11/01/24 11/02/24 11/03/24 23:59 23:59 23:59 23:59 Intake Total 2163.4 2340 1692 75 Output Total 250 500 590 450 Balance 1913.4 1840 1102 -375 Meds/Results Medications: Active Medications Generic Name Dose Route Start Last Admin Trade Name Freq PRN Reason Stop Dose Admin Acetaminophen 500 mg 11/01/24 14:35 11/03/24 04:51 Acetaminophen 500 Mg Tablet PO 500 mg Q6H PRN Administration Mild Pain (1-3) or Fever Acyclovir 1 applic 11/01/24 17:00 11/03/24 09:21 Acyclovir 5% Ointment 15 Gm Tube TOPICAL 1 applic Q4HWA NEIL Administration Atorvastatin Calcium 10 mg 11/02/24 09:00 11/03/24 09:21 Atorvastatin 10 Mg Tablet PO 10 mg QAM NEIL Administration Calcium Carbonate 200 mg 10/31/24 18:31 10/31/24 18:49 Calcium Carbonate (Tums) 500 Mg (200 Mg Elemental) PO 200 mg Q6H PRN Administration Indigestion Dextrose 12.5 gm 10/31/24 10:36 Dextrose 50% 25 Gm/50 Ml Syringe IV PUSH PRN PRN Hypoglycemia Protocol Epoetin Laith-epbx 10,000 units 11/01/24 10:25 11/01/24 11:36 Epoetin Laith-Epbx 10,000 Units/Ml Vial SUB-Q 10,000 units MOWEFR@09 NEIL Administration Fluticasone Propionate 1 spray 11/01/24 14:35 Fluticasone Propionate 0.05% Na Spr 16 Gm Btl (*Bkc) NASAL DAILY PRN allergies Folic Acid 1 mg 11/01/24 09:00 11/03/24 09:21 Folic Acid 1 Mg/0.2 Ml Inj IV PUSH 1 mg QAM NEIL Administration Glucagon 1 mg 10/31/24 10:36 Glucagon For Inj 1 Mg Vial IM PRN PRN Hypoglycemia Protocol Glucose 15 gm 10/31/24 10:36 Glucose Oral Gel 15 Gm Of Glucse In 37.5 Gm Tube PO PRN PRN Hypoglycemia Protocol Heparin Sodium (Porcine) 5,000 units 10/31/24 21:00 11/01/24 07:45 Heparin Sodium 5,000 Units/Ml Vial SUB-Q Not Given Q12HR NEIL Dextrose 1,000 mls @ 100 mls/hr 10/31/24 10:36 Dextrose 5% 1,000 Ml IVPB PRN PRN Hypoglycemia Protocol Cefepime HCl 1 gm in 50 mls @ 100 mls/hr 11/01/24 14:00 11/03/24 04:17 Maxipime 1 Gm/Ns 50 Ml IVPB 100 mls/hr Q12H NEIL Administration Insulin Aspart 1 - 3 units 10/31/24 21:00 11/02/24 21:55 Insulin Aspart (*Bkc) 100 Units/Ml SUB-Q 1 units HS NEIL Administration Protocol Insulin Aspart 3 - 6 units 10/31/24 12:00 11/03/24 09:11 Insulin Aspart (*Bkc) 100 Units/Ml SUB-Q Not Given TIDWM [facility] Protocol Sodium Bicarbonate 1,300 mg 11/03/24 09:00 11/03/24 09:21 Sodium Bicarbonate Tab 650 Mg Tablet PO 1,300 mg BIDPC NEIL Administration Tacrolimus 1 applic 11/01/24 17:00 Tacrolimus 0.03% 30 Gm Ointment TOPICAL BID PRN Eczema Thiamine HCl 200 mg 11/01/24 09:00 11/03/24 09:22 Thiamine Hcl 200 Mg/2 Ml Vial IV PUSH 200 mg QAM NEIL Administration Valacyclovir HCl 1,000 mg 11/01/24 09:00 11/03/24 09:21 Valacyclovir Hcl 500 Mg Tablet PO 1,000 mg Q24H NEIL Administration Radiology Results: ITS Impressions Head CT 10/31/24 05:29 Impression: No intracranial hemorrhage, mass, or acute infarct. Atrophy and chronic white matter changes, as above. Cervical Spine CT 10/31/24 05:30 Impression: No fracture or subluxation of the cervical spine. Minimal degenerative change. Small right pleural effusion. Chest/Abdomen/Pelvis CT 10/31/24 05:51 Impression: Small right pleural effusion and minimal left pleural effusion. Small focal groundglass opacity right lung, as above, which could reflect focal pulmonary edema or focal pneumonitis. Cirrhotic liver. Cholelithiasis. Impression fractures of L1, L2, L4, and L5. Extensive soft tissue anasarca changes. Small pericardial effusion with pericardial thickening and calcification. Correlate for constrictive or restrictive pericarditis. Renal Ultrasound 10/31/24 08:38 IMPRESSION: No definite abnormality. Chest X-Ray 11/01/24 06:09 IMPRESSION: 1. Mild pulmonary edema. Labs Labs: Laboratory Results - last 24 hr 11/02/24 11/02/24 11/02/24 11:28 15:49 21:54 WBC RBC Hgb Hct MCV MCH MCHC RDW Plt Count MPV Immature Gran % (Auto) Neut % (Auto) Lymph % (Auto) [place] % (Auto) Eos % (Auto) Baso % (Auto) Lymph # (Auto) [place] # (Auto) Eos # (Auto) Baso # (Auto) Abs Immat Gran (auto) Absolute Neuts (auto) Absolute Nucleated RBC Total Counted Neutrophils % (Manual) Lymphocytes % (Manual) Monocytes % (Manual) Eosinophils % (Manual) Myelocytes % Nucleated RBC % Abs Lymphs (Manual) Abs Monocytes (Manual) Absolute Eos (Manual) Nucleated RBCs Smudge Cells Platelet Estimate Anisocytosis Microcytosis Schistocytes Sodium Potassium Chloride Carbon Dioxide Anion Gap BUN Creatinine Estim Creat Clear Calc Estimated GFR Glucose POC Capillary Glucose 165 H 212 H 223 H Calcium Magnesium Total Bilirubin AST ALT Alkaline Phosphatase Total Protein Albumin 11/03/24 11/03/24 04:21 07:49 WBC 7.0 RBC 2.54 L Hgb 8.2 L Hct 25.1 L MCV 98.8 MCH 32.3 MCHC 32.7 RDW 14.5 Plt Count 104 L MPV 9.6 Immature Gran % (Auto) Not Reportable Neut % (Auto) Not Reportable Lymph % (Auto) Not Reportable [place] % (Auto) Not Reportable Eos % (Auto) Not Reportable Baso % (Auto) Not Reportable Lymph # (Auto) Not Reportable [place] # (Auto) Not Reportable Eos # (Auto) Not Reportable Baso # (Auto) Not Reportable Abs Immat Gran (auto) Not Reportable Absolute Neuts (auto) Not Reportable Absolute Nucleated RBC Not Reportable Total Counted 100 Neutrophils % (Manual) 83 H Lymphocytes % (Manual) 8.0 L Monocytes % (Manual) 3 Eosinophils % (Manual) 5 H Myelocytes % 1 Nucleated RBC % Not Reportable Abs Lymphs (Manual) 0.56 L Abs Monocytes (Manual) 0.21 Absolute Eos (Manual) 0.35 Nucleated RBCs 1 Smudge Cells Present Platelet Estimate Decreased Anisocytosis 1+ Microcytosis 1+ Schistocytes None seen Sodium 135 L Potassium 3.4 Chloride 101 Carbon Dioxide 18 L Anion Gap 16 H BUN 47 H Creatinine 2.60 H Estim Creat Clear Calc 20 Estimated GFR 18 L Glucose 147 H POC Capillary Glucose 152 H Calcium 9.2 Magnesium 1.9 Total Bilirubin 1.7 H AST 58 H ALT 25 Alkaline Phosphatase 241 H Total Protein 6.0 L Albumin 3.7
[2024-11-03 11:43] LABS: Glucose Point of Care 194 mg/dl (65-105)
--- NOTE | 2024-11-03 14:40 | WPDGIPROGNO ---
Progress Note: A&P Assessment and Plan (1) Advanced cirrhosis of liver: Code(s): K74.60 - Unspecified cirrhosis of liver Status: Acute Plan From our specialty [place], the patient's chronic liver disease/cirrhosis appears stable at this time. There is no evidence of ascites, active bleeding, or hepatic encephalopathy. Close outpatient follow-up in our office is recommended. I am available to assist with any further gastroenterology-related concerns that may arise. Subjective Date/time seen: 11/03/24 14:40 Interval history: The patient's clinical status is unchanged from yesterday. her bilateral leg cellulitis is being currently locally treated by the nursing staff. Objective Data Vital Signs Vital Signs: Vital Signs - 24 hr 11/02/24 15:24 11/02/24 16:00 11/02/24 16:00 Temperature 97.6 F Pulse Rate 97 117 H Respiratory Rate 20 Blood Pressure 120/61 Pulse Oximetry 100 Oxygen Delivery Room Air 11/02/24 18:00 11/02/24 19:04 11/02/24 20:00 Temperature 98.2 F Pulse Rate 101 H 71 Respiratory Rate 18 Blood Pressure 139/65 Pulse Oximetry 100 Oxygen Delivery Room Air 11/02/24 20:00 11/02/24 22:00 11/03/24 00:00 Temperature Pulse Rate 97 100 Respiratory Rate Blood Pressure Pulse Oximetry Oxygen Delivery Room Air 11/03/24 00:00 11/03/24 02:00 11/03/24 02:03 Temperature Pulse Rate 100 94 93 Respiratory Rate 14 Blood Pressure 99/51 L Pulse Oximetry 100 Oxygen Delivery 11/03/24 04:00 11/03/24 04:00 11/03/24 04:00 Temperature 97.7 F Pulse Rate 100 118 H Respiratory Rate 14 Blood Pressure 108/53 L Pulse Oximetry 100 Oxygen Delivery Room Air 11/03/24 06:00 11/03/24 07:54 11/03/24 08:00 Temperature 97.5 F L Pulse Rate 101 H 100 Respiratory Rate 18 Blood Pressure 104/44 L Pulse Oximetry 100 Oxygen Delivery Room Air 11/03/24 08:00 11/03/24 10:00 11/03/24 11:53 Temperature 97.7 F Pulse Rate 118 H 105 H 98 Respiratory Rate 18 Blood Pressure 109/45 L Pulse Oximetry 100 Oxygen Delivery Intake/Output Intake/Output: Intake & Output 10/31/24 11/01/24 11/02/24 11/03/24 23:59 23:59 23:59 23:59 Intake Total 2163.4 2340 1692 170 Output Total 250 500 590 450 Balance 1913.4 1840 1102 -280 Meds/Results Medications: Active Medications Generic Name Dose Route Start Last Admin Trade Name Freq PRN Reason Stop Dose Admin Acetaminophen 500 mg 11/01/24 14:35 11/03/24 04:51 Acetaminophen 500 Mg Tablet PO 500 mg Q6H PRN Administration Mild Pain (1-3) or Fever Acyclovir 1 applic 11/01/24 17:00 11/03/24 12:13 Acyclovir 5% Ointment 15 Gm Tube TOPICAL 1 applic Q4HWA NEIL Administration Atorvastatin Calcium 10 mg 11/02/24 09:00 11/03/24 09:21 Atorvastatin 10 Mg Tablet PO 10 mg QAM NEIL Administration Calcium Carbonate 200 mg 10/31/24 18:31 10/31/24 18:49 Calcium Carbonate (Tums) 500 Mg (200 Mg Elemental) PO 200 mg Q6H PRN Administration Indigestion Dextrose 12.5 gm 10/31/24 10:36 Dextrose 50% 25 Gm/50 Ml Syringe IV PUSH PRN PRN Hypoglycemia Protocol Epoetin Laith-epbx 10,000 units 11/01/24 10:25 11/01/24 11:36 Epoetin Laith-Epbx 10,000 Units/Ml Vial SUB-Q 10,000 units MOWEFR@09 NEIL Administration Fluticasone Propionate 1 spray 11/01/24 14:35 Fluticasone Propionate 0.05% Na Spr 16 Gm Btl (*Bkc) NASAL DAILY PRN allergies Folic Acid 1 mg 11/01/24 09:00 11/03/24 09:21 Folic Acid 1 Mg/0.2 Ml Inj IV PUSH 1 mg QAM NEIL Administration Glucagon 1 mg 10/31/24 10:36 Glucagon For Inj 1 Mg Vial IM PRN PRN Hypoglycemia Protocol Glucose 15 gm 10/31/24 10:36 Glucose Oral Gel 15 Gm Of Glucse In 37.5 Gm Tube PO PRN PRN Hypoglycemia Protocol Heparin Sodium (Porcine) 5,000 units 10/31/24 21:00 11/01/24 07:45 Heparin Sodium 5,000 Units/Ml Vial SUB-Q Not Given Q12HR NEIL Dextrose 1,000 mls @ 100 mls/hr 10/31/24 10:36 Dextrose 5% 1,000 Ml IVPB PRN PRN Hypoglycemia Protocol Cefepime HCl 1 gm in 50 mls @ 100 mls/hr 11/01/24 14:00 11/03/24 04:17 Maxipime 1 Gm/Ns 50 Ml IVPB 100 mls/hr Q12H NEIL Administration Insulin Aspart 1 - 3 units 10/31/24 21:00 11/02/24 21:55 Insulin Aspart (*Bkc) 100 Units/Ml SUB-Q 1 units HS NEIL Administration Protocol Insulin Aspart 3 - 6 units 10/31/24 12:00 11/03/24 11:55 Insulin Aspart (*Bkc) 100 Units/Ml SUB-Q Not Given TIDWM NEIL Protocol Sodium Bicarbonate 1,300 mg 11/03/24 09:00 11/03/24 09:21 Sodium Bicarbonate Tab 650 Mg Tablet PO 1,300 mg BIDPC NEIL Administration Tacrolimus 1 applic 11/01/24 17:00 Tacrolimus 0.03% 30 Gm Ointment TOPICAL BID PRN Eczema Thiamine HCl 200 mg 11/01/24 09:00 11/03/24 09:22 Thiamine Hcl 200 Mg/2 Ml Vial IV PUSH 200 mg QAM NEIL Administration Valacyclovir HCl 1,000 mg 11/01/24 09:00 11/03/24 09:21 Valacyclovir Hcl 500 Mg Tablet PO 1,000 mg Q24H NEIL Administration Radiology Results: ITS Impressions Head CT 10/31/24 05:29 Impression: No intracranial hemorrhage, mass, or acute infarct. Atrophy and chronic white matter changes, as above. Cervical Spine CT 10/31/24 05:30 Impression: No fracture or subluxation of the cervical spine. Minimal degenerative change. Small right pleural effusion. Chest/Abdomen/Pelvis CT 10/31/24 05:51 Impression: Small right pleural effusion and minimal left pleural effusion. Small focal groundglass opacity right lung, as above, which could reflect focal pulmonary edema or focal pneumonitis. Cirrhotic liver. Cholelithiasis. Impression fractures of L1, L2, L4, and L5. Extensive soft tissue anasarca changes. Small pericardial effusion with pericardial thickening and calcification. Correlate for constrictive or restrictive pericarditis. Renal Ultrasound 10/31/24 08:38 IMPRESSION: No definite abnormality. Chest X-Ray 11/01/24 06:09 IMPRESSION: 1. Mild pulmonary edema. Labs Labs: Laboratory Results - last 24 hr 11/02/24 11/02/24 11/03/24 15:49 21:54 04:21 WBC 7.0 RBC 2.54 L Hgb 8.2 L Hct 25.1 L MCV 98.8 MCH 32.3 MCHC 32.7 RDW 14.5 Plt Count 104 L MPV 9.6 Immature Gran % (Auto) Not Reportable Neut % (Auto) Not Reportable Lymph % (Auto) Not Reportable [place] % (Auto) Not Reportable Eos % (Auto) Not Reportable Baso % (Auto) Not Reportable Lymph # (Auto) Not Reportable [place] # (Auto) Not Reportable Eos # (Auto) Not Reportable Baso # (Auto) Not Reportable Abs Immat Gran (auto) Not Reportable Absolute Neuts (auto) Not Reportable Absolute Nucleated RBC Not Reportable Total Counted 100 Neutrophils % (Manual) 83 H Lymphocytes % (Manual) 8.0 L Monocytes % (Manual) 3 Eosinophils % (Manual) 5 H Myelocytes % 1 Nucleated RBC % Not Reportable Abs Lymphs (Manual) 0.56 L Abs Monocytes (Manual) 0.21 Absolute Eos (Manual) 0.35 Nucleated RBCs 1 Smudge Cells Present Platelet Estimate Decreased Anisocytosis 1+ Microcytosis 1+ Schistocytes None seen Sodium 135 L Potassium 3.4 Chloride 101 Carbon Dioxide 18 L Anion Gap 16 H BUN 47 H Creatinine 2.60 H Estim Creat Clear Calc 20 Estimated GFR 18 L Glucose 147 H POC Capillary Glucose 212 H 223 H Calcium 9.2 Magnesium 1.9 Total Bilirubin 1.7 H AST 58 H ALT 25 Alkaline Phosphatase 241 H Total Protein 6.0 L Albumin 3.7 11/03/24 11/03/24 07:49 11:35 WBC RBC Hgb Hct MCV MCH MCHC RDW Plt Count MPV Immature Gran % (Auto) Neut % (Auto) Lymph % (Auto) [place] % (Auto) Eos % (Auto) Baso % (Auto) Lymph # (Auto) [place] # (Auto) Eos # (Auto) Baso # (Auto) Abs Immat Gran (auto) Absolute Neuts (auto) Absolute Nucleated RBC Total Counted Neutrophils % (Manual) Lymphocytes % (Manual) Monocytes % (Manual) Eosinophils % (Manual) Myelocytes % Nucleated RBC % Abs Lymphs (Manual) Abs Monocytes (Manual) Absolute Eos (Manual) Nucleated RBCs Smudge Cells Platelet Estimate Anisocytosis Microcytosis Schistocytes Sodium Potassium Chloride Carbon Dioxide Anion Gap BUN Creatinine Estim Creat Clear Calc Estimated GFR Glucose POC Capillary Glucose 152 H 194 H Calcium Magnesium Total Bilirubin AST ALT Alkaline Phosphatase Total Protein Albumin
--- NOTE | 2024-11-03 16:10 | PC.NURSE ---
This patient, Lou Islas, was transferred to [facility] on 11/03/24 at 1609. Personal belongings sent with patient. Report given to Nalini MEZA. Appropriate documentation sent with patient.
--- NOTE | 2024-11-03 16:28 | PC.NURSE ---
This patient, Lou Islas, was received from [facility] on 11/03/24 at 1628. Patient/family oriented to unit policies and routines
[2024-11-03 17:13] LABS: Glucose Point of Care 229 mg/dl (65-105)
[2024-11-03] MEDS: INSULIN ASPART (*BKC) 100 UNITS/ML SUB-Q (17:13)
[2024-11-03 21:40] LABS: Glucose Point of Care 199 mg/dl (65-105)
[2024-11-04] MEDS: CEFEPIME 1 GM/NS 50 ML 1 GM/50 ML BAG IVPB ×2 (00:59→13:34)
[2024-11-04] MEDS: ACYCLOVIR 5% OINTMENT 15 GM TUBE 1 APPLIC TOPICAL ×5 (04:34→21:10)
[2024-11-04 04:35] VITALS: BP 132/74; PULSE 89; RESP 18; TEMP 36.9; O2SAT 100
[2024-11-04 07:08] LABS: Hematocrit 25.8 % (37.0-47.0); Hemoglobin 8.4 g/dL (12.0-15.0); Mean Corpuscular HGB Conc 32.6 g/dl (32-36); Mean Corpuscular Hemoglobin 32.3 pg (26-34); Mean Corpuscular Volume 99.2 fl (80-100); Mean Platelet Volume 9.4 fl (7.4-10.4); Platelet Count Result 102 k/mm3 (150-375); Red Cell Distribution Width 14.8 % (11.5-14.5); White Blood Count 6.5 K/mm3 (4.5-10.0)
[2024-11-04 07:18] LABS: Alanine Aminotransferase 25 U/L (6-35); Albumin Level 3.4 g/dL (3.5-5.1); Alkaline Phosphatase 252 U/L (38-126); Anion Gap 13 mmol/L (4-12); Aspartate Amino Transferase 45 U/L (14-36); Bilirubin,Total 1.7 mg/dL (0.2-1.3); Blood Urea Nitrogen 42 mg/dL (7-17); Calcium 9.1 mg/dL (8.4-10.2); Carbon Dioxide 22 mmol/L (22-30); Chloride 102 mmol/L (98-107); Estimated CRCL calculation 24 ml/min; Estimated Glomerular Filt Rate 23; Glucose 134 mg/dL (65-110); Magnesium 1.7 mg/dL (1.6-2.3); Sodium 137 mmol/L (137-145)
[2024-11-04 08:06] LABS: Atypical Lymphocytes Present; Eosinophils Absolute Manual 0.39 K/mm3 (0.02-0.50); Eosinophils Percent Manual 6 % (0-4); Lymphocytes Absolute Manual 0.78 K/mm3 (1.1-4.5); Monocytes Absolute Manual 0.52 K/mm3 (0.1-0.90); Monocytes Percent Manual 8 % (3-9); Neutrophils Percent Manual 74 % (46-73); Platelet Estimate Decreased (Adequate); Schistocytes None Seen; Total Cells Counted 100
[2024-11-04 08:16] LABS: Glucose Point of Care 161 mg/dl (65-105)
--- NOTE | 2024-11-04 08:46 | PM.IMPN ---
Progress Note: A&P Assessment and Plan (1) Alcoholism: Code(s): F10.20 - Alcohol dependence, uncomplicated Status: Chronic (2) Alcohol intoxication: Qualifiers: Complication of substance-induced condition: uncomplicated Qualified Code(s): F10.920 - Alcohol use, unspecified with intoxication, uncomplicated Code(s): F10.929 - Alcohol use, unspecified with intoxication, unspecified Status: Acute (3) Alcohol dependence: Qualifiers: Substance use status: uncomplicated Qualified Code(s): F10.20 - Alcohol dependence, uncomplicated Code(s): F10.20 - Alcohol dependence, uncomplicated Status: Acute (4) Chronic diastolic CHF (congestive heart failure): Code(s): I50.32 - Chronic diastolic (congestive) heart failure Status: Acute (5) CATHRYN (acute kidney injury): Code(s): N17.9 - Acute kidney failure, unspecified Status: Acute (6) Sepsis: Code(s): A41.9 - Sepsis, unspecified organism Status: Acute (7) Septic shock: Code(s): A41.9 - Sepsis, unspecified organism; R65.21 - Severe sepsis with septic shock Status: Acute Plan (1) Septic shock: Code(s): A41.9 - Sepsis, unspecified organism; R65.21 - Severe sepsis with septic shock Status: Acute Assessment and Plan: 10/31: Patient presented with generalized weakness, anasarca, bilateral lower and upper extremity edema, warm and erythematous skin of lower extremity likely cellulitis -etiology of septic shock likely related to UTI, cellulitis -lactic acid has normalized -patient has received albumin for intravascular volume expansion received Levophed, -status post IV fluids -continue albumin -chagned from Zosyn to cefepime (11/01) dc vancomycin (11/01) -10/30: Blood cultures growing Pseudomonas alcaligenes repeated blood culure on 11/02,no growth now Changed to Levaquin p.o. per ID pharmacist advice Acute renal failure: Qualifiers: Acute renal failure type: unspecified Qualified Code(s): N17.9 - Acute kidney failure, unspecified Code(s): N17.9 - Acute kidney failure, unspecified Status: Acute Assessment and Plan: Acute kidney injury likely related to hypovolemia, infection, hypotension -receiving albumin for volume expansion -status post maintenance IV fluids for 1000 mL, on albumin for intravascular volume expansion -urine lytes were prerenal -urine eosinophils were negative, mildly elevated CK levels which are improving -appreciate nephrology following the patient -continue to monitor urine output, electrolytes and renal function -encourage p.o. intake (3) Shingles: Code(s): B02.9 - Zoster without complications Status: Acute Assessment and Plan: Continue valacyclovir p.o. and acyclovir or ointment topical (4) Hyponatremia: Code(s): E87.1 - Hypo-osmolality and hyponatremia Status: Acute Assessment and Plan: Chronic hyponatremia likely related to hypovolemic hyponatremia -continue to monitor for now -nephrology following (5) Anasarca: Code(s): R60.1 - Generalized edema Status: Acute Assessment and Plan: Generalized anasarca likely related to cirrhosis/liver disease -patient receiving albumin -Once her blood pressures are improved, will start her home spironolactone, metolazone and Bumex (6) Alcohol dependence: Qualifiers: Substance use status: uncomplicated Qualified Code(s): F10.20 - Alcohol dependence, uncomplicated Code(s): F10.20 - Alcohol dependence, uncomplicated Status: Acute Assessment and Plan: Patient drinks 3 shots of vodka daily -will monitor for alcohol withdrawal (7) Acute on chronic diastolic (congestive) heart failure: Code(s): I50.33 - Acute on chronic diastolic (congestive) heart failure Status: Acute Assessment and Plan: Appreciate, cardiology following the patient, recommended Bumex -patient just came of Levophed,, I feel that she is intravascularly depleted at this time given her infection secondary to UTI and cellulitis -once her blood pressures permit, will start diuretics -patient also has a history of hypertension, takes labetalol, Bumex, metolazone, spironolactone at home (8) Advanced cirrhosis of liver: Code(s): K74.60 - Unspecified cirrhosis of liver Status: Acute Assessment and Plan: Likely related to to alcohol -appreciate GI evaluation recommendation -Oni's DF = 24 10/31: CT scan of the chest, abdomen and pelvis Small right pleural effusion and minimal left pleural effusion. Small focal groundglass opacity right lung, as above, which could reflect focal pulmonary edema or focal pneumonitis. Cirrhotic liver. Cholelithiasis. Impression fractures of L1, L2, L4, and L5. Extensive soft tissue anasarca changes. Small pericardial effusion with pericardial thickening and calcification. Correlate for constrictive or restrictive pericarditis. Anemia, history of esophageal viruses status post ligation Code(s): D64.9 - Anemia, unspecified Status: Acute Assessment and Plan: Patient has a history of chronic anemia -continue to monitor for now, no acute bleeding noted -will transfuse if hemoglobin < 7.0 Start carvedilol when blood pressure become stable per GI (10) ANTHONY (obstructive sleep apnea): Code(s): G47.33 - Obstructive sleep apnea (adult) (pediatric) Status: Acute Assessment and Plan: Obstructive sleep apnea, follows with wood flooring specialist. Dr. 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 Code(s): E11.51 - Type 2 diabetes mellitus with diabetic peripheral angiopathy without gangrene Status: Acute Assessment and Plan: Accu-Cheks and sliding scale insulin General weakness Patient cannot move the bed without assistance and cannot ambulate without assistance Resulting from physical deconditioning due to multiple comorbidities and recent sepsis Plan DVT prophylaxis: Hold heparin subQ due to decrease in platelets Stress ulcer prophylaxis: Continue Protonix Nutrition: Diabetic diet waiting for SNF placement Subjective Date/time seen: 11/04/24 08:46 Interval history: I saw exam patient in presents of patient's . Patient feels better, mental status improving. abdomen distension improves, Patient still has general weakness. Denies abdomen pain chest pain, palpitation Exam Narrative: General: Pleasant female in no acute distress HEENT:? Pupils equal and reactive, sclerae is clear, moist oral mucosa Neck:? Supple Respiratory:? decreased at bases, adequate air entry Cardiac:? S1-S2 is normal, regular rate and rhythm Abdomen:? Abdomen is distended, anasarca, hypoactive bowel sounds, nontender, Extremities:? edematous, decreased pedal pulses Neuro:? Patient is more somnolent, likely related to Dilaudid she received early this morning. Opens her eyes to loud voice commands, follows simple commands but goes back to sleep. Skin:?Shingles rash over the right side of the abdomen, erythematous and warm, skin cracking with ulceration Psych:? Normal mentation and affect Objective Data Vital Signs Vital Signs: Vital Signs - 24 hr 11/03/24 10:00 11/03/24 11:53 11/03/24 19:35 Temperature 97.7 F 96.7 F L Pulse Rate 105 H 98 91 Respiratory Rate 18 20 Blood Pressure 109/45 L 120/74 Pulse Oximetry 100 100 Oxygen Delivery 11/03/24 20:00 11/04/24 04:35 Temperature 98.4 F Pulse Rate 89 Respiratory Rate 18 Blood Pressure 132/74 Pulse Oximetry 100 Oxygen Delivery Room Air Intake/Output Intake/Output: Intake & Output 11/01/24 11/02/24 11/03/24 11/04/24 23:59 23:59 23:59 23:59 Intake Total 2340 1692 1060 200 Output Total 440 666 8083 450 Balance 1840 1102 -390 -250 Meds/Results Medications: Active Medications Generic Name Dose Route Start Last Admin Trade Name Freq PRN Reason Stop Dose Admin Acetaminophen 500 mg 11/01/24 14:35 11/03/24 04:51 Acetaminophen 500 Mg Tablet PO 500 mg Q6H PRN Administration Mild Pain (1-3) or Fever Acyclovir 1 applic 11/01/24 17:00 11/04/24 04:34 Acyclovir 5% Ointment 15 Gm Tube TOPICAL 1 applic Q4HWA [facility] Administration Atorvastatin Calcium 10 mg 11/02/24 09:00 11/03/24 09:21 Atorvastatin 10 Mg Tablet PO 10 mg QAM [facility] Administration Calcium Carbonate 200 mg 10/31/24 18:31 10/31/24 18:49 Calcium Carbonate (Tums) 500 Mg (200 Mg Elemental) PO 200 mg Q6H PRN Administration Indigestion Dextrose 12.5 gm 10/31/24 10:36 Dextrose 50% 25 Gm/50 Ml Syringe IV PUSH PRN PRN Hypoglycemia Protocol Epoetin Laith-epbx 10,000 units 11/01/24 10:25 11/01/24 11:36 Epoetin Laith-Epbx 10,000 Units/Ml Vial SUB-Q 10,000 units MOWEFR@09 [facility] Administration Fluticasone Propionate 1 spray 11/01/24 14:35 Fluticasone Propionate 0.05% Na Spr 16 Gm Btl (*Bkc) NASAL DAILY PRN allergies Folic Acid 1 mg 11/01/24 09:00 11/03/24 09:21 Folic Acid 1 Mg/0.2 Ml Inj IV PUSH 1 mg QAM NEIL Administration Glucagon 1 mg 10/31/24 10:36 Glucagon For Inj 1 Mg Vial IM PRN PRN Hypoglycemia Protocol Glucose 15 gm 10/31/24 10:36 Glucose Oral Gel 15 Gm Of Glucse In 37.5 Gm Tube PO PRN PRN Hypoglycemia Protocol Heparin Sodium (Porcine) 5,000 units 10/31/24 21:00 11/01/24 07:45 Heparin Sodium 5,000 Units/Ml Vial SUB-Q Not Given Q12HR NEIL Dextrose 1,000 mls @ 100 mls/hr 10/31/24 10:36 Dextrose 5% 1,000 Ml IVPB PRN PRN Hypoglycemia Protocol Cefepime HCl 1 gm in 50 mls @ 100 mls/hr 11/01/24 14:00 11/04/24 00:59 Maxipime 1 Gm/Ns 50 Ml IVPB 100 mls/hr Q12H NEIL Administration Insulin Aspart 1 - 3 units 10/31/24 21:00 11/03/24 21:25 Insulin Aspart (*Bkc) 100 Units/Ml SUB-Q Not Given HS NEIL Protocol Insulin Aspart 3 - 6 units 10/31/24 12:00 11/03/24 17:13 Insulin Aspart (*Bkc) 100 Units/Ml SUB-Q 4 units TIDWM NEIL Administration Protocol Sodium Bicarbonate 1,300 mg 11/03/24 09:00 11/03/24 16:48 Sodium Bicarbonate Tab 650 Mg Tablet PO 1,300 mg BIDPC NEIL Administration Tacrolimus 1 applic 11/01/24 17:00 Tacrolimus 0.03% 30 Gm Ointment TOPICAL BID PRN Eczema Thiamine HCl 200 mg 11/01/24 09:00 11/03/24 09:22 Thiamine Hcl 200 Mg/2 Ml Vial IV PUSH 200 mg QAM NEIL Administration Valacyclovir HCl 1,000 mg 11/01/24 09:00 11/03/24 09:21 Valacyclovir Hcl 500 Mg Tablet PO 1,000 mg Q24H NEIL Administration Radiology Results: ITS Impressions Head CT 10/31/24 05:29 Impression: No intracranial hemorrhage, mass, or acute infarct. Atrophy and chronic white matter changes, as above. Cervical Spine CT 10/31/24 05:30 Impression: No fracture or subluxation of the cervical spine. Minimal degenerative change. Small right pleural effusion. Chest/Abdomen/Pelvis CT 10/31/24 05:51 Impression: Small right pleural effusion and minimal left pleural effusion. Small focal groundglass opacity right lung, as above, which could reflect focal pulmonary edema or focal pneumonitis. Cirrhotic liver. Cholelithiasis. Impression fractures of L1, L2, L4, and L5. Extensive soft tissue anasarca changes. Small pericardial effusion with pericardial thickening and calcification. Correlate for constrictive or restrictive pericarditis. Renal Ultrasound 10/31/24 08:38 IMPRESSION: No definite abnormality. Chest X-Ray 11/01/24 06:09 IMPRESSION: 1. Mild pulmonary edema. Labs Labs: Laboratory Results - last 24 hr 11/03/24 11/03/24 11/03/24 07:49 11:35 17:06 WBC RBC Hgb Hct MCV MCH MCHC RDW Plt Count MPV Immature Gran % (Auto) Neut % (Auto) Lymph % (Auto) [place] % (Auto) Eos % (Auto) Baso % (Auto) Lymph # (Auto) [place] # (Auto) Eos # (Auto) Baso # (Auto) Abs Immat Gran (auto) Absolute Neuts (auto) Absolute Nucleated RBC Total Counted Neutrophils % (Manual) Lymphocytes % (Manual) Monocytes % (Manual) Eosinophils % (Manual) Nucleated RBC % Abs Lymphs (Manual) Abs Monocytes (Manual) Absolute Eos (Manual) Atypical Lymphocytes Platelet Estimate Schistocytes Sodium Potassium Chloride Carbon Dioxide Anion Gap BUN Creatinine Estim Creat Clear Calc Estimated GFR Glucose POC Capillary Glucose 152 H 194 H 229 H Calcium Magnesium Total Bilirubin AST ALT Alkaline Phosphatase Total Protein Albumin 11/03/24 11/04/24 11/04/24 21:19 06:25 08:11 WBC 6.5 RBC 2.60 L Hgb 8.4 L Hct 25.8 L MCV 99.2 MCH 32.3 MCHC 32.6 RDW 14.8 H Plt Count 102 L MPV 9.4 Immature Gran % (Auto) Not Reportable Neut % (Auto) Not Reportable Lymph % (Auto) Not Reportable [place] % (Auto) Not Reportable Eos % (Auto) Not Reportable Baso % (Auto) Not Reportable Lymph # (Auto) Not Reportable [place] # (Auto) Not Reportable Eos # (Auto) Not Reportable Baso # (Auto) Not Reportable Abs Immat Gran (auto) Not Reportable Absolute Neuts (auto) Not Reportable Absolute Nucleated RBC Not Reportable Total Counted 100 Neutrophils % (Manual) 74 H Lymphocytes % (Manual) 12.0 L Monocytes % (Manual) 8 Eosinophils % (Manual) 6 H Nucleated RBC % Not Reportable Abs Lymphs (Manual) 0.78 L Abs Monocytes (Manual) 0.52 Absolute Eos (Manual) 0.39 Atypical Lymphocytes Present Platelet Estimate Decreased Schistocytes None seen Sodium 137 Potassium 3.0 L Chloride 102 Carbon Dioxide 22 Anion Gap 13 H BUN 42 H Creatinine 2.15 H Estim Creat Clear Calc 24 Estimated GFR 23 L Glucose 134 H POC Capillary Glucose 199 H 161 H Calcium 9.1 Magnesium 1.7 Total Bilirubin 1.7 H AST 45 H ALT 25 Alkaline Phosphatase 252 H Total Protein 6.0 L Albumin 3.4 L
[2024-11-04] MEDS: ATORVASTATIN 10 MG TABLET PO (08:55)
[2024-11-04] MEDS: SODIUM BICARBONATE TAB 650 MG TABLET 1300 MG PO ×2 (08:55→17:26)
[2024-11-04] MEDS: valACYclovir HCL 500 MG TABLET 1000 MG PO (08:55)
[2024-11-04] MEDS: THIAMINE HCL 200 MG/2 ML VIAL IV PUSH (08:55)
[2024-11-04] MEDS: FOLIC ACID 1 MG/0.2 ML INJ IV PUSH (10:49)
[2024-11-04 11:15] LABS: Glucose Point of Care 231 mg/dl (65-105)
[2024-11-04] MEDS: EPOETIN ALFA-EPBX 10,000 UNITS/ML VIAL 10000 UNITS SUB-Q (12:45)
[2024-11-04] MEDS: INSULIN ASPART (*BKC) 100 UNITS/ML SUB-Q (12:45)
[2024-11-04 14:00] VITALS: BP 107/81; PULSE 84; RESP 18; TEMP 36.3; O2SAT 100
--- NOTE | 2024-11-04 16:21 | PM.PNNEP ---
Subjective Date/time seen: 11/04/24 11:07 Interval history: Follow-up for acute kidney injury/acute renal failure on chronic kidney disease. Chart reviewed since last seen -- stable hemodynamics noted with improvement in renal function/creatinine; tolerating restart of loop diuretics at this time; Objective Data Vital Signs Vital Signs: Vital Signs Temp Pulse Resp BP Pulse Ox O2 Del Method 11/04/24 10:18 Room Air 11/04/24 09:07 Room Air 11/04/24 08:00 Room Air 11/04/24 04:35 98.4 F 89 18 132/74 100 11/03/24 20:00 Room Air 11/03/24 19:35 96.7 F L 91 20 120/74 100 Intake/Output Intake/Output: Intake & Output 11/01/24 11/02/24 11/03/24 11/04/24 23:59 23:59 23:59 23:59 Intake Total 2340 1692 1060 1020 Output Total 985 662 1459 450 Balance 1840 1102 -390 570 Meds/Results Medications: Active Medications Generic Name Dose Route Start Last Admin Trade Name Freq PRN Reason Stop Dose Admin Acetaminophen 500 mg 11/01/24 14:35 11/03/24 04:51 Acetaminophen 500 Mg Tablet PO 500 mg Q6H PRN Administration Mild Pain (1-3) or Fever Acyclovir 1 applic 11/01/24 17:00 11/04/24 12:50 Acyclovir 5% Ointment 15 Gm Tube TOPICAL 1 applic Q4HWA NEIL Administration Atorvastatin Calcium 10 mg 11/02/24 09:00 11/04/24 08:55 Atorvastatin 10 Mg Tablet PO 10 mg QAM NEIL Administration Calcium Carbonate 200 mg 10/31/24 18:31 10/31/24 18:49 Calcium Carbonate (Tums) 500 Mg (200 Mg Elemental) PO 200 mg Q6H PRN Administration Indigestion Dextrose 12.5 gm 10/31/24 10:36 Dextrose 50% 25 Gm/50 Ml Syringe IV PUSH PRN PRN Hypoglycemia Protocol Epoetin Laith-epbx 10,000 units 11/01/24 10:25 11/04/24 12:45 Epoetin Laith-Epbx 10,000 Units/Ml Vial SUB-Q 10,000 units MOWEFR@09 NEIL Administration Fluticasone Propionate 1 spray 11/01/24 14:35 Fluticasone Propionate 0.05% Na Spr 16 Gm Btl (*Bkc) NASAL DAILY PRN allergies Folic Acid 1 mg 11/01/24 09:00 11/04/24 10:49 Folic Acid 1 Mg/0.2 Ml Inj IV PUSH 1 mg QAM NEIL Administration Glucagon 1 mg 10/31/24 10:36 Glucagon For Inj 1 Mg Vial IM PRN PRN Hypoglycemia Protocol Glucose 15 gm 10/31/24 10:36 Glucose Oral Gel 15 Gm Of Glucse In 37.5 Gm Tube PO PRN PRN Hypoglycemia Protocol Heparin Sodium (Porcine) 5,000 units 10/31/24 21:00 11/01/24 07:45 Heparin Sodium 5,000 Units/Ml Vial SUB-Q Not Given Q12HR NEIL Dextrose 1,000 mls @ 100 mls/hr 10/31/24 10:36 Dextrose 5% 1,000 Ml IVPB PRN PRN Hypoglycemia Protocol Insulin Aspart 1 - 3 units 10/31/24 21:00 11/03/24 21:25 Insulin Aspart (*Bkc) 100 Units/Ml SUB-Q Not Given HS NEIL Protocol Insulin Aspart 3 - 6 units 10/31/24 12:00 11/04/24 12:45 Insulin Aspart (*Bkc) 100 Units/Ml SUB-Q 3 units TIDWM NEIL Administration Protocol Levofloxacin 750 mg 11/04/24 21:00 Levofloxacin 750 Mg Tablet PO 11/10/24 21:01 Q48H NEIL Sodium Bicarbonate 1,300 mg 11/03/24 09:00 11/04/24 08:55 Sodium Bicarbonate Tab 650 Mg Tablet PO 1,300 mg BIDPC NELI Administration Tacrolimus 1 applic 11/01/24 17:00 Tacrolimus 0.03% 30 Gm Ointment TOPICAL BID PRN Eczema Thiamine HCl 200 mg 11/01/24 09:00 11/04/24 08:55 Thiamine Hcl 200 Mg/2 Ml Vial IV PUSH 200 mg QAM NEIL Administration Valacyclovir HCl 1,000 mg 11/01/24 09:00 11/04/24 08:55 Valacyclovir Hcl 500 Mg Tablet PO 1,000 mg Q24H NEIL Administration Radiology Results: ITS Impressions Head CT 10/31/24 05:29 Impression: No intracranial hemorrhage, mass, or acute infarct. Atrophy and chronic white matter changes, as above. Cervical Spine CT 10/31/24 05:30 Impression: No fracture or subluxation of the cervical spine. Minimal degenerative change. Small right pleural effusion. Chest/Abdomen/Pelvis CT 10/31/24 05:51 Impression: Small right pleural effusion and minimal left pleural effusion. Small focal groundglass opacity right lung, as above, which could reflect focal pulmonary edema or focal pneumonitis. Cirrhotic liver. Cholelithiasis. Impression fractures of L1, L2, L4, and L5. Extensive soft tissue anasarca changes. Small pericardial effusion with pericardial thickening and calcification. Correlate for constrictive or restrictive pericarditis. Renal Ultrasound 10/31/24 08:38 IMPRESSION: No definite abnormality. Chest X-Ray 11/01/24 06:09 IMPRESSION: 1. Mild pulmonary edema. Labs Labs: Laboratory Tests 11/04/24 06:25 11/04/24 06:25 Calcium 9.1 Magnesium 1.7 Total Bilirubin 1.7 H AST 45 H ALT 25 Alkaline Phosphatase 252 H Total Protein 6.0 L Albumin 3.4 L Microbiology 11/02/24 17:18 Blood Blood Culture - Preliminary 11/02/24 17:18 Blood Blood Culture - Preliminary
[2024-11-04 16:58] LABS: Glucose Point of Care 198 mg/dl (65-105)
[2024-11-04 20:05] VITALS: BP 130/72; PULSE 99; RESP 16; TEMP 36.6; O2SAT 100
[2024-11-04] MEDS: levoFLOXacin 750 MG TABLET PO (21:10)
[2024-11-04 22:13] LABS: Glucose Point of Care 176 mg/dl (65-105)
[2024-11-05 03:50] VITALS: BP 116/64; PULSE 96; RESP 18; TEMP 36.6; O2SAT 100
[2024-11-05 06:20] LABS: Hematocrit 26.3 % (37.0-47.0); Hemoglobin 8.6 g/dL (12.0-15.0); Mean Corpuscular HGB Conc 32.7 g/dl (32-36); Mean Corpuscular Hemoglobin 32.8 pg (26-34); Mean Corpuscular Volume 100.4 fl (80-100); Mean Platelet Volume 9.4 fl (7.4-10.4); Platelet Count Result 105 k/mm3 (150-375); Red Blood Count 2.62 M/mm3 (4.2-5.4); Red Cell Distribution Width 14.9 % (11.5-14.5); White Blood Count 6.8 K/mm3 (4.5-10.0)
[2024-11-05 06:41] LABS: Alanine Aminotransferase 24 U/L (6-35); Albumin Level 3.3 g/dL (3.5-5.1); Alkaline Phosphatase 226 U/L (38-126); Anion Gap 11 mmol/L (4-12); Aspartate Amino Transferase 42 U/L (14-36); Bilirubin,Total 1.6 mg/dL (0.2-1.3); Blood Urea Nitrogen 39 mg/dL (7-17); Calcium 8.5 mg/dL (8.4-10.2); Carbon Dioxide 22 mmol/L (22-30); Chloride 102 mmol/L (98-107); Estimated CRCL calculation 31 ml/min; Estimated Glomerular Filt Rate 29; Glucose 124 mg/dL (65-110); Magnesium 1.7 mg/dL (1.6-2.3); Potassium 3.1 mmol/L (3.4-5.0); Sodium 135 mmol/L (137-145)
[2024-11-05 07:23] LABS: Eosinophils Absolute Manual 0.13 K/mm3 (0.02-0.50); Eosinophils Percent Manual 2 % (0-4); Lymphocytes Absolute Manual 0.95 K/mm3 (1.1-4.5); Monocytes Absolute Manual 0.47 K/mm3 (0.1-0.90); Monocytes Percent Manual 7 % (3-9); Neutrophils Percent Manual 77 % (46-73); Platelet Estimate Decreased (Adequate); Schistocytes None Seen; Total Cells Counted 100
[2024-11-05 07:24] LABS: Atypical Lymphocytes Present
[2024-11-05] MEDS: THIAMINE HCL 200 MG/2 ML VIAL IV PUSH (08:15)
[2024-11-05] MEDS: ACYCLOVIR 5% OINTMENT 15 GM TUBE 1 APPLIC TOPICAL ×3 (08:15→17:41)
[2024-11-05] MEDS: ATORVASTATIN 10 MG TABLET PO (08:15)
[2024-11-05] MEDS: SODIUM BICARBONATE TAB 650 MG TABLET 1300 MG PO ×2 (08:15→17:41)
[2024-11-05] MEDS: FOLIC ACID 1 MG/0.2 ML INJ IV PUSH (08:15)
[2024-11-05] MEDS: valACYclovir HCL 500 MG TABLET 1000 MG PO (08:15)
[2024-11-05 08:23] LABS: Glucose Point of Care 130 mg/dl (65-105)
--- NOTE | 2024-11-05 10:45 | P.PNIM_ITS ---
Progress Note: A&P Assessment and Plan (1) Alcoholism: Code(s): F10.20 - Alcohol dependence, uncomplicated Status: Chronic (2) Alcohol intoxication: Qualifiers: Complication of substance-induced condition: uncomplicated Qualified Code(s): F10.920 - Alcohol use, unspecified with intoxication, uncomplicated Code(s): F10.929 - Alcohol use, unspecified with intoxication, unspecified Status: Acute (3) Alcohol dependence: Qualifiers: Substance use status: uncomplicated Qualified Code(s): F10.20 - Alcohol dependence, uncomplicated Code(s): F10.20 - Alcohol dependence, uncomplicated Status: Acute (4) Chronic diastolic CHF (congestive heart failure): Code(s): I50.32 - Chronic diastolic (congestive) heart failure Status: Acute (5) CATHRYN (acute kidney injury): Code(s): N17.9 - Acute kidney failure, unspecified Status: Acute (6) Sepsis: Code(s): A41.9 - Sepsis, unspecified organism Status: Acute (7) Septic shock: Code(s): A41.9 - Sepsis, unspecified organism; R65.21 - Severe sepsis with septic shock Status: Acute Plan (1) Septic shock: Code(s): A41.9 - Sepsis, unspecified organism; R65.21 - Severe sepsis with septic shock Status: Acute Assessment and Plan: 10/31: Patient presented with generalized weakness, anasarca, bilateral lower and upper extremity edema, warm and erythematous skin of lower extremity likely cellulitis -etiology of septic shock likely related to UTI, cellulitis -lactic acid has normalized -patient has received albumin for intravascular volume expansion received Levophed, -status post IV fluids -continue albumin -chagned from Zosyn to cefepime (11/01) dc vancomycin (11/01) -10/30: Blood cultures growing Pseudomonas alcaligenes repeated blood culure on 11/02,no growth now Changed to Levaquin p.o. per ID pharmacist advice Continue Levaquin 750 mg Q 48 hour for 3 more doses Acute renal failure: Qualifiers: Acute renal failure type: unspecified Qualified Code(s): N17.9 - Acute kidney failure, unspecified Code(s): N17.9 - Acute kidney failure, unspecified Status: Acute Assessment and Plan: Acute kidney injury likely related to hypovolemia, infection, hypotension -receiving albumin for volume expansion -status post maintenance IV fluids for 1000 mL, on albumin for intravascular volume expansion -urine lytes were prerenal -urine eosinophils were negative, mildly elevated CK levels which are improving -appreciate nephrology following the patient -continue to monitor urine output, electrolytes and renal function -encourage p.o. intake (3) Shingles: Code(s): B02.9 - Zoster without complications Status: Acute Assessment and Plan: Continue valacyclovir p.o. and acyclovir or ointment topical (4) Hyponatremia: Code(s): E87.1 - Hypo-osmolality and hyponatremia Status: Acute Assessment and Plan: Chronic hyponatremia likely related to hypovolemic hyponatremia -continue to monitor for now -nephrology following Corrected (5) Anasarca: Code(s): R60.1 - Generalized edema Status: Acute Assessment and Plan: Generalized anasarca likely related to cirrhosis/liver disease -patient receiving albumin Continue home medication spironolactone, metolazone and Bumex Blood pressure stable Edema subsiding significantly (6) Alcohol dependence: Qualifiers: Substance use status: uncomplicated Qualified Code(s): F10.20 - Alcohol dependence, uncomplicated Code(s): F10.20 - Alcohol dependence, uncomplicated Status: Acute Assessment and Plan: Patient drinks 3 shots of vodka daily -will monitor for alcohol withdrawal Currently patient has no alcohol withdrawal Continue thiamine folic acid p.o. (7) Acute on chronic diastolic (congestive) heart failure: Code(s): I50.33 - Acute on chronic diastolic (congestive) heart failure Status: Acute Assessment and Plan: Appreciate, cardiology following the patient, recommended Bumex -patient just came of Levophed,, I feel that she is intravascularly depleted at this time given her infection secondary to UTI and cellulitis -once her blood pressures permit, will start diuretics -patient also has a history of hypertension, takes labetalol, Bumex, metolazone, spironolactone at home (8) Advanced cirrhosis of liver: Code(s): K74.60 - Unspecified cirrhosis of liver Status: Acute Assessment and Plan: Likely related to to alcohol -appreciate GI evaluation recommendation -Oni's DF = 24 10/31: CT scan of the chest, abdomen and pelvis Small right pleural effusion and minimal left pleural effusion. Small focal groundglass opacity right lung, as above, which could reflect focal pulmonary edema or focal pneumonitis. Cirrhotic liver. Cholelithiasis. Impression fractures of L1, L2, L4, and L5. Extensive soft tissue anasarca changes. Small pericardial effusion with pericardial thickening and calcification. Correlate for constrictive or restrictive pericarditis. Continue home medications of Bumex 0.5 mg b.i.d. p.o. metolazone 2.5 mg daily p.o. 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 Dr. Samayoa (11) Type 2 diabetes mellitus with diabetic peripheral angiopathy without gang jama: Qualifiers: Diabetes mellitus intermediate accountant insulin use: with intermediate accountant use Qualified Code(s): E11.51 - Type 2 diabetes mellitus with diabetic peripheral angiopathy without gangrene; Z79.4 - assisted (current) use of insulin Code(s): E11.51 - Type 2 diabetes mellitus with diabetic peripheral angiopathy without gangrene Status: Acute Assessment and Plan: Accu-Cheks and sliding scale insulin General weakness Patient cannot move the bed without assistance and cannot ambulate without assistance Resulting from physical deconditioning due to multiple comorbidities and recent sepsis Plan DVT prophylaxis: Hold heparin subQ due to decrease in platelets Stress ulcer prophylaxis: Continue Protonix Nutrition: Diabetic diet waiting for SNF placement Subjective Date/time seen: 11/05/24 10:45 Interval history: I saw and examined patient today. patient has no complaints, patient denies headache, chest pain shortness breast abdomen distension improves, Patient still has general weakness. Unable to ambulate by herself patient is afebrile blood pressure stable, labs reviewed Exam Narrative: General: Pleasant female in no acute distress HEENT:? Pupils equal and reactive, sclerae is clear, moist oral mucosa Neck:? Supple Respiratory:? decreased at bases, adequate air entry Cardiac:? S1-S2 is normal, regular rate and rhythm Abdomen:? Abdomen is distended, anasarca, hypoactive bowel sounds, nontender, Extremities:? edematous, decreased pedal pulses Neuro:? Patient is more somnolent, likely related to Dilaudid she received early this morning. Opens her eyes to loud voice commands, follows simple commands but goes back to sleep. Skin:?Shingles rash over the right side of the abdomen, erythematous and warm, skin cracking with ulceration Psych:? Normal mentation and affect Objective Data Vital Signs Vital Signs: Vital Signs - 24 hr 11/04/24 14:00 11/04/24 20:05 11/05/24 03:50 Temperature 97.3 F L 98 F 97.8 F Pulse Rate 84 99 96 Respiratory Rate 18 16 18 Blood Pressure 107/81 130/72 116/64 Pulse Oximetry 100 100 100 Intake/Output Intake/Output: Intake & Output 11/02/24 11/03/24 11/04/24 11/05/24 23:59 23:59 23:59 23:59 Intake Total 1692 1060 2260 750 Output Total 590 1450 1250 1150 Balance 1102 -390 1010 -400 Meds/Results Medications: Active Medications Generic Name Dose Route Start Last Admin Trade Name Freq PRN Reason Stop Dose Admin Acetaminophen 500 mg 11/01/24 14:35 11/03/24 04:51 Acetaminophen 500 Mg Tablet PO 500 mg Q6H PRN Administration Mild Pain (1-3) or Fever Acyclovir 1 applic 11/01/24 17:00 11/05/24 08:15 Acyclovir 5% Ointment 15 Gm Tube TOPICAL 1 applic Q4HWA NEIL Administration Ascorbic Acid 500 mg 11/05/24 09:00 Ascorbic Acid 500 Mg Tablet PO DAILY NEIL Atorvastatin Calcium 10 mg 11/02/24 09:00 11/05/24 08:15 Atorvastatin 10 Mg Tablet PO 10 mg QAM NEIL Administration Bumetanide 0.5 mg 11/05/24 09:00 Bumetanide 0.5 Mg Tablet PO BID NEIL Calcium Carbonate 200 mg 10/31/24 18:31 10/31/24 18:49 Calcium Carbonate (Tums) 500 Mg (200 Mg Elemental) PO 200 mg Q6H PRN Administration Indigestion Dextrose 12.5 gm 10/31/24 10:36 Dextrose 50% 25 Gm/50 Ml Syringe IV PUSH PRN PRN Hypoglycemia Protocol Empagliflozin 10 mg 11/05/24 09:00 Empagliflozin 10 Mg Tablet PO DAILY NEIL Epoetin Laith-epbx 10,000 units 11/01/24 10:25 11/04/24 12:45 Epoetin Laith-Epbx 10,000 Units/Ml Vial SUB-Q 10,000 units MOWEFR@09 NEIL Administration Fluticasone Propionate 1 spray 11/01/24 14:35 Fluticasone Propionate 0.05% Na Spr 16 Gm Btl (*Bkc) NASAL DAILY PRN allergies Folic Acid 0.8 mg 11/06/24 09:00 Folic Acid 0.4 Mg Tablet PO QAM NEIL Glucagon 1 mg 10/31/24 10:36 Glucagon For Inj 1 Mg Vial IM PRN PRN Hypoglycemia Protocol Glucose 15 gm 10/31/24 10:36 Glucose Oral Gel 15 Gm Of Glucse In 37.5 Gm Tube PO PRN PRN Hypoglycemia Protocol Heparin Sodium (Porcine) 5,000 units 10/31/24 21:00 11/01/24 07:45 Heparin Sodium 5,000 Units/Ml Vial SUB-Q Not Given Q12HR [facility] Dextrose 1,000 mls @ 100 mls/hr 10/31/24 10:36 Dextrose 5% 1,000 Ml IVPB PRN PRN Hypoglycemia Protocol Insulin Aspart 1 - 3 units 10/31/24 21:00 11/04/24 21:10 Insulin Aspart (*Bkc) 100 Units/Ml SUB-Q Not Given HS [facility] Protocol Insulin Aspart 3 - 6 units 10/31/24 12:00 11/05/24 08:12 Insulin Aspart (*Bkc) 100 Units/Ml SUB-Q Not Given TIDWM [facility] Protocol Levofloxacin 750 mg 11/04/24 21:00 11/04/24 21:10 Levofloxacin 750 Mg Tablet PO 11/10/24 21:01 750 mg Q48H NEIL Administration Metolazone 2.5 mg 11/05/24 09:00 Metolazone 2.5 Mg Tablet PO DAILY [facility] Multivitamins/Calcium 1 tablet 11/05/24 09:00 Therapeutic Multivitamins/Minerals Tab (*Bkc) PO DAILY [facility] Potassium Chloride 40 meq 11/05/24 17:00 Potassium Chloride 20 Meq Packet (For Liquid) PO BID NEIL Sodium Bicarbonate 1,300 mg 11/03/24 09:00 11/05/24 08:15 Sodium Bicarbonate Tab 650 Mg Tablet PO 1,300 mg BIDPC NEIL Administration Spironolactone 25 mg 11/05/24 09:00 Spironolactone 25 Mg Tablet PO QAM NEIL Tacrolimus 1 applic 11/01/24 17:00 Tacrolimus 0.03% 30 Gm Ointment TOPICAL BID PRN Eczema Thiamine HCl 200 mg 11/01/24 09:00 11/05/24 08:15 Thiamine Hcl 200 Mg/2 Ml Vial IV PUSH 200 mg QAM NEIL Administration Valacyclovir HCl 1,000 mg 11/01/24 09:00 11/05/24 08:15 Valacyclovir Hcl 500 Mg Tablet PO 1,000 mg Q24H NEIL Administration Radiology Results: ITS Impressions Head CT 10/31/24 05:29 Impression: No intracranial hemorrhage, mass, or acute infarct. Atrophy and chronic white matter changes, as above. Cervical Spine CT 10/31/24 05:30 Impression: No fracture or subluxation of the cervical spine. Minimal degenerative change. Small right pleural effusion. Chest/Abdomen/Pelvis CT 10/31/24 05:51 Impression: Small right pleural effusion and minimal left pleural effusion. Small focal groundglass opacity right lung, as above, which could reflect focal pulmonary edema or focal pneumonitis. Cirrhotic liver. Cholelithiasis. Impression fractures of L1, L2, L4, and L5. Extensive soft tissue anasarca changes. Small pericardial effusion with pericardial thickening and calcification. Correlate for constrictive or restrictive pericarditis. Renal Ultrasound 10/31/24 08:38 IMPRESSION: No definite abnormality. Chest X-Ray 11/01/24 06:09 IMPRESSION: 1. Mild pulmonary edema. Labs Labs: Laboratory Results - last 24 hr 11/04/24 11/04/24 11/04/24 11:05 16:55 20:08 WBC RBC Hgb Hct MCV MCH MCHC RDW Plt Count MPV Immature Gran % (Auto) Neut % (Auto) Lymph % (Auto) Quay % (Auto) Eos % (Auto) Baso % (Auto) Lymph # (Auto) Quay # (Auto) Eos # (Auto) Baso # (Auto) Abs Immat Gran (auto) Absolute Neuts (auto) Absolute Nucleated RBC Total Counted Neutrophils % (Manual) Lymphocytes % (Manual) Monocytes % (Manual) Eosinophils % (Manual) Nucleated RBC % Abs Lymphs (Manual) Abs Monocytes (Manual) Absolute Eos (Manual) Atypical Lymphocytes Platelet Estimate Schistocytes Sodium Potassium Chloride Carbon Dioxide Anion Gap BUN Creatinine Estim Creat Clear Calc Estimated GFR Glucose POC Capillary Glucose 231 H 198 H 176 H Calcium Magnesium Total Bilirubin AST ALT Alkaline Phosphatase Total Protein Albumin 11/05/24 11/05/24 06:01 08:05 WBC 6.8 RBC 2.62 L Hgb 8.6 L Hct 26.3 L MCV 100.4 H MCH 32.8 MCHC 32.7 RDW 14.9 H Plt Count 105 L MPV 9.4 Immature Gran % (Auto) Not Reportable Neut % (Auto) Not Reportable Lymph % (Auto) Not Reportable Quay % (Auto) Not Reportable Eos % (Auto) Not Reportable Baso % (Auto) Not Reportable Lymph # (Auto) Not Reportable Quay # (Auto) Not Reportable Eos # (Auto) Not Reportable Baso # (Auto) Not Reportable Abs Immat Gran (auto) Not Reportable Absolute Neuts (auto) Not Reportable Absolute Nucleated RBC Not Reportable Total Counted 100 Neutrophils % (Manual) 77 H Lymphocytes % (Manual) 14.0 L Monocytes % (Manual) 7 Eosinophils % (Manual) 2 Nucleated RBC % Not Reportable Abs Lymphs (Manual) 0.95 L Abs Monocytes (Manual) 0.47 Absolute Eos (Manual) 0.13 Atypical Lymphocytes Present Platelet Estimate Decreased Schistocytes None seen Sodium 135 L Potassium 3.1 L Chloride 102 Carbon Dioxide 22 Anion Gap 11 BUN 39 H Creatinine 1.75 H Estim Creat Clear Calc 31 Estimated GFR 29 L Glucose 124 H POC Capillary Glucose 130 H Calcium 8.5 Magnesium 1.7 Total Bilirubin 1.6 H AST 42 H ALT 24 Alkaline Phosphatase 226 H Total Protein 6.0 L Albumin 3.3 L
[2024-11-05 10:48] LABS: Chloride Rand Ur 20 mmol/L (32-290); Chloride/Creatinine Rand Ur 21 (38-318); Creatinine Random Urine 96 mg/dL (20-275)
--- NOTE | 2024-11-05 11:00 | PM.PNNEP ---
Subjective Date/time seen: 11/05/24 11:00 Objective Data Vital Signs Vital Signs: Vital Signs Temp Pulse Resp BP Pulse Ox O2 Del Method 11/05/24 08:00 Room Air 11/05/24 03:50 97.8 F 96 18 116/64 100 11/04/24 20:05 98 F 99 16 130/72 100 11/04/24 14:00 97.3 F L 84 18 107/81 100 Intake/Output Intake/Output: Intake & Output 11/02/24 11/03/24 11/04/24 11/05/24 23:59 23:59 23:59 23:59 Intake Total 1692 1060 2260 1463 Output Total 590 1450 1250 1150 Balance 1102 -390 1010 313 Meds/Results Medications: Active Medications Generic Name Dose Route Start Last Admin Trade Name Freq PRN Reason Stop Dose Admin Acetaminophen 500 mg 11/01/24 14:35 11/03/24 04:51 Acetaminophen 500 Mg Tablet PO 500 mg Q6H PRN Administration Mild Pain (1-3) or Fever Acyclovir 1 applic 11/01/24 17:00 11/05/24 08:15 Acyclovir 5% Ointment 15 Gm Tube TOPICAL 1 applic Q4HWA NEIL Administration Ascorbic Acid 500 mg 11/05/24 09:00 11/05/24 11:15 Ascorbic Acid 500 Mg Tablet PO 500 mg DAILY NEIL Administration Atorvastatin Calcium 10 mg 11/02/24 09:00 11/05/24 08:15 Atorvastatin 10 Mg Tablet PO 10 mg QAM NEIL Administration Bumetanide 0.5 mg 11/05/24 09:00 11/05/24 11:15 Bumetanide 0.5 Mg Tablet PO 0.5 mg BID NEIL Administration Calcium Carbonate 200 mg 10/31/24 18:31 10/31/24 18:49 Calcium Carbonate (Tums) 500 Mg (200 Mg Elemental) PO 200 mg Q6H PRN Administration Indigestion Dextrose 12.5 gm 10/31/24 10:36 Dextrose 50% 25 Gm/50 Ml Syringe IV PUSH PRN PRN Hypoglycemia Protocol Empagliflozin 10 mg 11/05/24 09:00 11/05/24 11:15 Empagliflozin 10 Mg Tablet PO 10 mg DAILY NEIL Administration Epoetin Laith-epbx 10,000 units 11/01/24 10:25 11/04/24 12:45 Epoetin Laith-Epbx 10,000 Units/Ml Vial SUB-Q 10,000 units MOWEFR@09 NEIL Administration Fluticasone Propionate 1 spray 11/01/24 14:35 Fluticasone Propionate 0.05% Na Spr 16 Gm Btl (*Bkc) NASAL DAILY PRN allergies Folic Acid 0.8 mg 11/06/24 09:00 Folic Acid 0.4 Mg Tablet PO QAM NEIL Glucagon 1 mg 10/31/24 10:36 Glucagon For Inj 1 Mg Vial IM PRN PRN Hypoglycemia Protocol Glucose 15 gm 10/31/24 10:36 Glucose Oral Gel 15 Gm Of Glucse In 37.5 Gm Tube PO PRN PRN Hypoglycemia Protocol Heparin Sodium (Porcine) 5,000 units 10/31/24 21:00 11/01/24 07:45 Heparin Sodium 5,000 Units/Ml Vial SUB-Q Not Given Q12HR NEIL Dextrose 1,000 mls @ 100 mls/hr 10/31/24 10:36 Dextrose 5% 1,000 Ml IVPB PRN PRN Hypoglycemia Protocol Insulin Aspart 1 - 3 units 10/31/24 21:00 11/04/24 21:10 Insulin Aspart (*Bkc) 100 Units/Ml SUB-Q Not Given HS NEIL Protocol Insulin Aspart 3 - 6 units 10/31/24 12:00 11/05/24 12:07 Insulin Aspart (*Bkc) 100 Units/Ml SUB-Q Not Given TIDWM NEIL Protocol Levofloxacin 750 mg 11/04/24 21:00 11/04/24 21:10 Levofloxacin 750 Mg Tablet PO 11/10/24 21:01 750 mg Q48H NEIL Administration Metolazone 2.5 mg 11/05/24 09:00 11/05/24 11:15 Metolazone 2.5 Mg Tablet PO 2.5 mg DAILY NEIL Administration Multivitamins/Calcium 1 tablet 11/05/24 09:00 11/05/24 11:15 Therapeutic Multivitamins/Minerals Tab (*Bkc) PO 1 tablet DAILY NEIL Administration Potassium Chloride 40 meq 11/05/24 17:00 Potassium Chloride 20 Meq Packet (For Liquid) PO BID NEIL Sodium Bicarbonate 1,300 mg 11/03/24 09:00 11/05/24 08:15 Sodium Bicarbonate Tab 650 Mg Tablet PO 1,300 mg BIDPC NEIL Administration Spironolactone 25 mg 11/05/24 09:00 11/05/24 11:15 Spironolactone 25 Mg Tablet PO 25 mg QAM NEIL Administration Tacrolimus 1 applic 11/01/24 17:00 Tacrolimus 0.03% 30 Gm Ointment TOPICAL BID PRN Eczema Thiamine HCl 200 mg 11/01/24 09:00 11/05/24 08:15 Thiamine Hcl 200 Mg/2 Ml Vial IV PUSH 200 mg QAM NEIL Administration Valacyclovir HCl 1,000 mg 11/01/24 09:00 11/05/24 08:15 Valacyclovir Hcl 500 Mg Tablet PO 1,000 mg Q24H ENIL Administration Radiology Results: ITS Impressions Head CT 10/31/24 05:29 Impression: No intracranial hemorrhage, mass, or acute infarct. Atrophy and chronic white matter changes, as above. Cervical Spine CT 10/31/24 05:30 Impression: No fracture or subluxation of the cervical spine. Minimal degenerative change. Small right pleural effusion. Chest/Abdomen/Pelvis CT 10/31/24 05:51 Impression: Small right pleural effusion and minimal left pleural effusion. Small focal groundglass opacity right lung, as above, which could reflect focal pulmonary edema or focal pneumonitis. Cirrhotic liver. Cholelithiasis. Impression fractures of L1, L2, L4, and L5. Extensive soft tissue anasarca changes. Small pericardial effusion with pericardial thickening and calcification. Correlate for constrictive or restrictive pericarditis. Renal Ultrasound 10/31/24 08:38 IMPRESSION: No definite abnormality. Chest X-Ray 11/01/24 06:09 IMPRESSION: 1. Mild pulmonary edema. Labs Labs: Laboratory Tests 11/05/24 06:01 11/05/24 06:01 Calcium 8.5 Magnesium 1.7 Total Bilirubin 1.6 H AST 42 H ALT 24 Alkaline Phosphatase 226 H Total Protein 6.0 L Albumin 3.3 L Microbiology 10/30/24 23:17 Blood Blood Culture - Final Pseudomonas alcaligenes 10/30/24 23:17 Blood Blood Culture - Final Pseudomonas alcaligenes
--- NOTE | 2024-11-05 11:03 | P.DS_ITS ---
DS: Admitting Diagnosis Discharge Date 11/05 Admitting Diagnosis (1) Alcoholism: Code(s): F10.20 - Alcohol dependence, uncomplicated Status: Chronic (2) Alcohol intoxication: Qualifiers: Complication of substance-induced condition: uncomplicated Qualified Code(s): F10.920 - Alcohol use, unspecified with intoxication, uncomplicated Code(s): F10.929 - Alcohol use, unspecified with intoxication, unspecified Status: Acute (3) Alcohol dependence: Qualifiers: Substance use status: uncomplicated Qualified Code(s): F10.20 - Alcohol dependence, uncomplicated Code(s): F10.20 - Alcohol dependence, uncomplicated Status: Acute (4) Chronic diastolic CHF (congestive heart failure): Code(s): I50.32 - Chronic diastolic (congestive) heart failure Status: Acute (5) CATHRYN (acute kidney injury): Code(s): N17.9 - Acute kidney failure, unspecified Status: Acute (6) Sepsis: Code(s): A41.9 - Sepsis, unspecified organism Status: Acute (7) Septic shock: Code(s): A41.9 - Sepsis, unspecified organism; R65.21 - Severe sepsis with septic shock Status: Acute DS: Discharge Diagnosis Discharge Diagnosis (1) Alcoholism: Code(s): F10.20 - Alcohol dependence, uncomplicated Status: Chronic (2) Alcohol intoxication: Qualifiers: Complication of substance-induced condition: uncomplicated Qualified Code(s): F10.920 - Alcohol use, unspecified with intoxication, uncomplicated Code(s): F10.929 - Alcohol use, unspecified with intoxication, unspecified Status: Acute (3) Alcohol dependence: Qualifiers: Substance use status: uncomplicated Qualified Code(s): F10.20 - Alcohol dependence, uncomplicated Code(s): F10.20 - Alcohol dependence, uncomplicated Status: Acute (4) Chronic diastolic CHF (congestive heart failure): Code(s): I50.32 - Chronic diastolic (congestive) heart failure Status: Acute (5) CATHRYN (acute kidney injury): Code(s): N17.9 - Acute kidney failure, unspecified Status: Acute (6) Sepsis: Code(s): A41.9 - Sepsis, unspecified organism Status: Acute (7) Septic shock: Code(s): A41.9 - Sepsis, unspecified organism; R65.21 - Severe sepsis with septic shock Status: Acute Plan (1) Septic shock: Code(s): A41.9 - Sepsis, unspecified organism; R65.21 - Severe sepsis with septic shock Status: Acute Assessment and Plan: 10/31: Patient presented with generalized weakness, anasarca, bilateral lower and upper extremity edema, warm and erythematous skin of lower extremity likely cellulitis -etiology of septic shock likely related to UTI, cellulitis -lactic acid has normalized -patient has received albumin for intravascular volume expansion received Levophed, -status post IV fluids -continue albumin -chagned from Zosyn to cefepime (11/01) dc vancomycin (11/01) -10/30: Blood cultures growing Pseudomonas alcaligenes repeated blood culure on 11/02,no growth now Changed to Levaquin p.o. per ID pharmacist advice Continue Levaquin 750 mg Q 48 hour for 3 more doses Acute renal failure: Qualifiers: Acute renal failure type: unspecified Qualified Code(s): N17.9 - Acute kidney failure, unspecified Code(s): N17.9 - Acute kidney failure, unspecified Status: Acute Assessment and Plan: Acute kidney injury likely related to hypovolemia, infection, hypotension -receiving albumin for volume expansion -status post maintenance IV fluids for 1000 mL, on albumin for intravascular vol ume expansion -urine lytes were prerenal -urine eosinophils were negative, mildly elevated CK levels which are improving -appreciate nephrology following the patient -continue to monitor urine output, electrolytes and renal function -encourage p.o. intake (3) Shingles: Code(s): B02.9 - Zoster without complications Status: Acute Assessment and Plan: Continue valacyclovir p.o. and acyclovir or ointment topical (4) Hyponatremia: Code(s): E87.1 - Hypo-osmolality and hyponatremia Status: Acute Assessment and Plan: Chronic hyponatremia likely related to hypovolemic hyponatremia -continue to monitor for now -nephrology following Corrected (5) Anasarca: Code(s): R60.1 - Generalized edema Status: Acute Assessment and Plan: Generalized anasarca likely related to cirrhosis/liver disease -patient receiving albumin Continue home medication spironolactone, metolazone and Bumex Blood pressure stable Edema subsiding significantly (6) Alcohol dependence: Qualifiers: Substance use status: uncomplicated Qualified Code(s): F10.20 - Alcohol dependence, uncomplicated Code(s): F10.20 - Alcohol dependence, uncomplicated Status: Acute Assessment and Plan: Patient drinks 3 shots of vodka daily -will monitor for alcohol withdrawal Currently patient has no alcohol withdrawal Continue thiamine folic acid p.o. (7) Acute on chronic diastolic (congestive) heart failure: Code(s): I50.33 - Acute on chronic diastolic (congestive) heart failure Status: Acute Assessment and Plan: Appreciate, cardiology following the patient, recommended Bumex -patient just came of Levophed,, I feel that she is intravascularly depleted at this time given her infection secondary to UTI and cellulitis -once her blood pressures permit, will start diuretics -patient also has a history of hypertension, takes labetalol, Bumex, metolazone, spironolactone at home (8) Advanced cirrhosis of liver: Code(s): K74.60 - Unspecified cirrhosis of liver Status: Acute Assessment and Plan: Likely related to to alcohol -appreciate GI evaluation recommendation -Oni's DF = 24 10/31: CT scan of the chest, abdomen and pelvis Small right pleural effusion and minimal left pleural effusion. Small focal groundglass opacity right lung, as above, which could reflect focal pulmonary edema or focal pneumonitis. Cirrhotic liver. Cholelithiasis. Impression fractures of L1, L2, L4, and L5. Extensive soft tissue anasarca changes. Small pericardial effusion with pericardial thickening and calcification. Correlate for constrictive or restrictive pericarditis. Continue home medications of Bumex 0.5 mg b.i.d. p.o. metolazone 2.5 mg daily p.o. 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 Dr. Samayoa (11) Type 2 diabetes mellitus with diabetic peripheral angiopathy without ga ngrene: Qualifiers: Diabetes mellitus termite treater helper insulin use: with termite treater helper use Qualified Code(s): E11.51 - Type 2 diabetes mellitus with diabetic peripheral angiopathy without gangrene; Z79.4 - termite technician (current) use of insulin Code(s): E11.51 - Type 2 diabetes mellitus with diabetic peripheral angiopathy without gangrene Status: Acute Assessment and Plan: Accu-Cheks and sliding scale insulin General weakness Patient cannot move the bed without assistance and cannot ambulate without assistance Resulting from physical deconditioning due to multiple comorbidities and recent sepsis Plan DVT prophylaxis: Hold heparin subQ due to decrease in platelets Stress ulcer prophylaxis: Continue Protonix Nutrition: Diabetic diet waiting for SNF placement DS: Summary Hospital Course Hospital Course: Per H&P, This is a 69-year-old female with past medical history significant for alcohol dependence, hepatic cirrhosis, obstructive sleep apnea, pulmonary hypertension, congestive heart failure, chronic kidney disease, anemia of chronic disease, insulin-dependent diabetes mellitus, GERD. Patient presents to the emergency room via EMS after she is little out of her wheelchair she has been progressively getting weak has had worsening bilateral lower extremity edema and increased abdominal girth. Preliminary workup was significant for brain natriuretic peptide 13664, creatinine 2.3, BUN 41, sodium 126, chloride 95, CBC showed a leukocyte count of 30,000. Patient has been placed in broad- spectrum antibiotics The following med issues have been addressed during hospitalization (1) Septic shock: Code(s): A41.9 - Sepsis, unspecified organism; R65.21 - Severe sepsis with septic shock Status: Acute Assessment and Plan: 10/31: Patient presented with generalized weakness, anasarca, bilateral lower and upper extremity edema, warm and erythematous skin of lower extremity likely cellulitis -etiology of septic shock likely related to UTI, cellulitis -lactic acid has normalized -patient has received albumin for intravascular volume expansion received Levophed, -status post IV fluids -continue albumin -chagned from Zosyn to cefepime (11/01) dc vancomycin (11/01) -10/30: Blood cultures growing Pseudomonas alcaligenes repeated blood culure on 11/02,no growth now Changed to Levaquin p.o. per ID pharmacist advice Continue Levaquin 750 mg Q 48 hour for 3 more doses Acute renal failure: Qualifiers: Acute renal failure type: unspecified Qualified Code(s): N17.9 - Acute kidney failure, unspecified Code(s): N17.9 - Acute kidney failure, unspecified Status: Acute Assessment and Plan: Acute kidney injury likely related to hypovolemia, infection, hypotension -receiving albumin for volume expansion -status post maintenance IV fluids for 1000 mL, on albumin for intravascular volume expansion -urine lytes were prerenal -urine eosinophils were negative, mildly elevated CK levels which are improving -appreciate nephrology following the patient -continue to monitor urine output, electrolytes and renal function -encourage p.o. intake (3) Shingles: Code(s): B02.9 - Zoster without complications Status: Acute Assessment and Plan: Continue valacyclovir p.o. and acyclovir or ointment topical (4) Hyponatremia: Code(s): E87.1 - Hypo-osmolality and hyponatremia Status: Acute Assessment and Plan: Chronic hyponatremia likely related to hypovolemic hyponatremia -continue to monitor for now -nephrology following Corrected (5) Anasarca: Code(s): R60.1 - Generalized edema Status: Acute Assessment and Plan: Generalized anasarca likely related to cirrhosis/liver disease -patient receiving albumin Continue home medication spironolactone, metolazone and Bumex Blood pressure stable Edema subsiding significantly (6) Alcohol dependence: Qualifiers: Substance use status: uncomplicated Qualified Code(s): F10.20 - Alcohol dependence, uncomplicated Code(s): F10.20 - Alcohol dependence, uncomplicated Status: Acute Assessment and Plan: Patient drinks 3 shots of vodka daily -will monitor for alcohol withdrawal Currently patient has no alcohol withdrawal Continue thiamine folic acid p.o. (7) Acute on chronic diastolic (congestive) heart failure: Code(s): I50.33 - Acute on chronic diastolic (congestive) heart failure Status: Acute Assessment and Plan: Appreciate, cardiology following the patient, recommended Bumex -patient just came of Levophed,, I feel that she is intravascularly depleted at this time given her infection secondary to UTI and cellulitis -once her blood pressures permit, will start diuretics -patient also has a history of hypertension, takes labetalol, Bumex, metolazone, spironolactone at home (8) Advanced cirrhosis of liver: Code(s): K74.60 - Unspecified cirrhosis of liver Status: Acute Assessment and Plan: Likely related to to alcohol -appreciate GI evaluation recommendation -Oni's DF = 24 10/31: CT scan of the chest, abdomen and pelvis Small right pleural effusion and minimal left pleural effusion. Small focal groundglass opacity right lung, as above, which could reflect focal pulmonary edema or focal pneumonitis. Cirrhotic liver. Cholelithiasis. Impression fractures of L1, L2, L4, and L5. Extensive soft tissue anasarca changes. Small pericardial effusion with pericardial thickening and calcification. Correlate for constrictive or restrictive pericarditis. Continue home medications of Bumex 0.5 mg b.i.d. p.o. metolazone 2.5 mg daily p.o. 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 Dr. Samayoa (11) Type 2 diabetes mellitus with diabetic peripheral angiopathy without gangrene: Qualifiers: Diabetes mellitus termite treater helper insulin use: with intermediate use Qualified Code(s): E11.51 - Type 2 diabetes mellitus with diabetic peripheral angiopathy without gangrene; Z79.4 - residential (current) use of insulin Code(s): E11.51 - Type 2 diabetes mellitus with diabetic peripheral angiopathy without gangrene Status: Acute Assessment and Plan: Accu-Cheks and sliding scale insulin General weakness Patient cannot move the bed without assistance and cannot ambulate without assistance Resulting from physical deconditioning due to multiple comorbidities and recent sepsis Time Spent with Patient Time attestation: Total time spent providing and/or coordinating discharge services: Exam Narrative: General: Pleasant female in no acute distress HEENT:? Pupils equal and reactive, sclerae is clear, moist oral mucosa Neck:? Supple Respiratory:? decreased at bases, adequate air entry Cardiac:? S1-S2 is normal, regular rate and rhythm Abdomen:? Abdomen is distended, anasarca, hypoactive bowel sounds, nontender, Extremities:? edematous, decreased pedal pulses Neuro:? Patient is more somnolent, likely related to Dilaudid she received early this morning. Opens her eyes to loud voice commands, follows simple commands but goes back to sleep. Skin:?Shingles rash over the right side of the abdomen, erythematous and warm, skin cracking with ulceration Psych:? Normal mentation and affect DS: Data Data Completed and Pending Labs on day of discharge: Labs from last 24 hours 11/05/24 11/05/24 11/04/24 08:05 06:01 20:08 WBC 6.8 RBC 2.62 L Hgb 8.6 L Hct 26.3 L MCV 100.4 H MCH 32.8 MCHC 32.7 RDW 14.9 H Plt Count 105 L MPV 9.4 Immature Gran % (Auto) Not Reportable Neut % (Auto) Not Reportable Lymph % (Auto) Not Reportable Howell % (Auto) Not Reportable Eos % (Auto) Not Reportable Baso % (Auto) Not Reportable Lymph # (Auto) Not Reportable Howell # (Auto) Not Reportable Eos # (Auto) Not Reportable Baso # (Auto) Not Reportable Abs Immat Gran (auto) Not Reportable Absolute Neuts (auto) Not Reportable Absolute Nucleated RBC Not Reportable Total Counted 100 Neutrophils % (Manual) 77 H Lymphocytes % (Manual) 14.0 L Monocytes % (Manual) 7 Eosinophils % (Manual) 2 Nucleated RBC % Not Reportable Abs Lymphs (Manual) 0.95 L Abs Monocytes (Manual) 0.47 Absolute Eos (Manual) 0.13 Atypical Lymphocytes Present Platelet Estimate Decreased Schistocytes None seen Sodium 135 L Potassium 3.1 L Chloride 102 Carbon Dioxide 22 Anion Gap 11 BUN 39 H Creatinine 1.75 H Estim Creat Clear Calc 31 Estimated GFR 29 L Glucose 124 H POC Capillary Glucose 130 H 176 H Calcium 8.5 Magnesium 1.7 Total Bilirubin 1.6 H AST 42 H ALT 24 Alkaline Phosphatase 226 H Total Protein 6.0 L Albumin 3.3 L Ur Random Creatinine Ur Random Chloride U Random Chloride/Creat 11/04/24 11/04/24 10/31/24 16:55 11:05 08:08 WBC RBC Hgb Hct MCV MCH MCHC RDW Plt Count MPV Immature Gran % (Auto) Neut % (Auto) Lymph % (Auto) Howell % (Auto) Eos % (Auto) Baso % (Auto) Lymph # (Auto) Howell # (Auto) Eos # (Auto) Baso # (Auto) Abs Immat Gran (auto) Absolute Neuts (auto) Absolute Nucleated RBC Total Counted Neutrophils % (Manual) Lymphocytes % (Manual) Monocytes % (Manual) Eosinophils % (Manual) Nucleated RBC % Abs Lymphs (Manual) Abs Monocytes (Manual) Absolute Eos (Manual) Atypical Lymphocytes Platelet Estimate Schistocytes Sodium Potassium Chloride Carbon Dioxide Anion Gap BUN Creatinine Estim Creat Clear Calc Estimated GFR Glucose POC Capillary Glucose 198 H 231 H Calcium Magnesium Total Bilirubin AST ALT Alkaline Phosphatase Total Protein Albumin Ur Random Creatinine 96 Ur Random Chloride 20 L U Random Chloride/Creat 21 L Preliminary micro results at discharge 11/02/24 17:18 Blood Culture - Preliminary Blood 11/02/24 17:18 Blood Culture - Preliminary Blood 10/30/24 23:17 Blood Culture - Preliminary Blood Pseudomonas alcaligenes 10/30/24 23:17 Blood Culture - Preliminary Blood Pseudomonas alcaligenes Discharge Plan Discharge Attending physician on discharge: Chioma Johnson Consulting providers: Mary Jo Mckeon; Shane Ann; Bridget Nicholson Discharging Clinician: Chioma Johnson Anticipated Discharge Date/Time: 11/05/24 10:51 Patient Disposition: SNF Activity: as tolerated Diet: as tolerated and diabetic Patient Instructions: Heart Failure (DC), Cirrhosis of the Liver (DC), Acute Kidney Injury (DC), Cellulitis (GEN), Abuse of Alcohol (DC), Removal of a Central Line, PICC, or Midline Catheter (DC) Patient Language: [place] Timorese Stand Alone Forms: General Discharge Information Follow-up/Referrals: Ghanshyam Ruiz APRN [Primary Care Provider] - (Patient needs see primary care provider in 1 week) Bridget Nicholson APN-C [Advanced Practice Nurse] - (Patient needs see deputy director at scheduled appointment) Erasto Weaver MD [Physician] - (Patient needs to see GI at scheduled appointment) Discharge Medications: New valacyclovir [Valtrex] 500 mg Tablet 1,000 mg PO Q24H Qty: 6 0RF levofloxacin 750 mg tablet 750 mg PO Q48H Qty: 3 0RF Continued bumetanide 1 mg tablet 0.5 mg PO BID pyridoxine (vitamin B6) 100 mg tablet 100 mg PO DAILY mecobalamin (vitamin B12) 1,000 mcg tablet,chewable 3,000 mcg PO DAILY aspirin 81 mg tablet,delayed release (DR/EC) 81 mg PO DAILY ascorbate calcium (vitamin C) 500 mg tablet 500 mg PO DAILY folic acid 800 mcg tablet 0.8 mg PO DAILY fluticasone propionate 50 mcg/actuation [place],Suspension 1 spray INTRANASAL DAILY PRN (Reason: allergies) thiamine HCl (vitamin B1) [Vitamin B-1] 100 mg Tablet 100 mg PO QAM Qty: 30 0RF magnesium oxide 400 mg (241.3 mg magnesium) tablet 250 mg PO QAM spironolactone 25 mg Tablet 25 mg PO QAM Qty: 30 0RF Jardiance 10 mg Tablet 10 mg PO DAILY Qty: 30 0RF metolazone 2.5 mg tablet 2.5 mg PO DAILY Multiple Vitamin, Womens Tablet 1 tablet PO DAILY Qty: 30 0RF tacrolimus 0.03 % Ointment 1 applic TOPICAL BID (DME) blood sugar diagnostic Strip See Rx Instructions .ROUTE .MEDSUPPLY Qty: 360 1RF Rx Instructions: use to test 4 times a day alendronate 70 mg tablet 70 mg PO WEEKLY Qty: 12 3RF Rx Instructions: MONDAY insulin lispro [Humalog KwikPen Insulin] 100 unit/mL insulin pen 3 unit SUB-Q TID Qty: 9 4RF Rx Instructions: before each meal atorvastatin 10 mg tablet 10 mg PO QAM Qty: 90 1RF Rx Instructions: TAKE 1 TABLET BY MOUTH DAILY labetalol 100 mg tablet 100 mg PO BID Qty: 60 5RF calcitriol 0.25 mcg capsule 0.25 mcg PO 4XW Qty: 16 6RF Rx Instructions: administer on Mondays, Wednesdays, Fridays, and Monday (DME) pen needle, diabetic [BD Muriel 2nd Gen Pen Needle] 32 gauge x needle See Rx Instructions .ROUTE .MEDSUPPLY Qty: 360 1RF Rx Instructions: Use to inject insulin up to 4 times daily (DME) Ambric G7 Sensor Device See Rx Instructions .Route Qty: 3 5RF Rx Instructions: As directed potassium chloride 10 mEq capsule, extended release 10 meq PO DAILY Qty: 90 1RF sodium chloride 1,000 mg tablet,soluble See Rx Instructions .ROUTE .COMPLEX Qty: 90 3RF Dose Instruction: TAKE 1 TABLET BY MOUTH DAILY Rx Instructions: TAKE 1 TABLET BY MOUTH DAILY insulin glargine [Lantus Solostar U-100 Insulin] 100 unit/mL (3 mL) insulin pen See Rx Instructions .ROUTE .COMPLEX Qty: 15 1RF Dose Instruction: ADMINISTER 15 UNITS UNDER THE SKIN EVERY DAY AT BEDTIME Rx Instructions: ADMINISTER 15 UNITS UNDER THE SKIN EVERY DAY AT BEDTIME acyclovir [Zovirax] 5 % cream 1 applic topical DAILY Qty: 5 0RF Discontinued valacyclovir 1 gram tablet 1,000 mg PO Q8H Qty: 24 0RF Date of admission: 10/31/24 03:23 Primary Care Provider: Ghanshyam Ruiz Admitting Provider: Tanya Sequeira V. Attending physician on admission: Tanya Sequeira V. Condition: Critical
[2024-11-05] MEDS: ASCORBIC ACID 500 MG TABLET PO (11:15)
[2024-11-05] MEDS: THERAPEUTIC MULTIVITAMINS/MINERALS TAB (*BKC) 1 TABLET PO (11:15)
[2024-11-05] MEDS: POTASSIUM CHLORIDE 20 MEQ PACKET (FOR LIQUID) 40 MEQ PO ×2 (11:15→17:40)
[2024-11-05] MEDS: BUMETANIDE 0.5 MG TABLET PO ×2 (11:15→17:40)
[2024-11-05] MEDS: EMPAGLIFLOZIN 10 MG TABLET PO (11:15)
[2024-11-05] MEDS: metOLazone 2.5 MG TABLET PO (11:15)
[2024-11-05] MEDS: SPIRONOLACTONE 25 MG TABLET PO (11:15)
[2024-11-05 11:42] LABS: Glucose Point of Care 177 mg/dl (65-105)
[2024-11-05 13:11] LABS: SARS-CoV-2 RNA PCR Negative (Negative)
[2024-11-05 14:00] VITALS: BP 111/63; PULSE 96; RESP 20; TEMP 36.2; O2SAT 100
--- NOTE | 2024-11-05 14:04 | PCPTNOTE ---
On 11/05/24, the student, JOSÉ MIGUEL Bellamy, provided care and completed [facility] documentation on this patient. I have reviewed the student's documentation and agree with the findings.
[2024-11-05 16:21] LABS: Glucose Point of Care 163 mg/dl (65-105)
== END 2024-11-05 19:41 | DRG 871 ==
LOC: ANHED 10-31 03:33 → ANHICU 10-31 04:56 → ANHIMU 11-02 18:14 → ANH3MEDSUR 11-05 10:52 → ANHICU 11-06 09:17 → ANHIMU 11-06 09:17
PROVIDERS: Internal Medicine; Admitting Provider Internal Medicine; Emergency Provider Emergency Medicine; PCP Nurse Practitioner; Visit Provider Hospitalist
DX: A41.9 Sepsis, unspecified organism (principal); I50.33 Acute on chronic diastolic (congestive) heart failure; R65.21 Severe sepsis with septic shock; N17.0 Acute kidney failure with tubular necrosis; L03.116 Cellulitis of left lower limb; L03.115 Cellulitis of right lower limb; N39.0 Urinary tract infection, site not specified; E87.1 Hypo-osmolality and hyponatremia; I13.0 Hypertensive heart and chronic kidney disease with heart failure and stage 1 through stage 4 chronic kidney disease, or unspecified chronic kidney disease; E11.22 Type 2 diabetes mellitus with diabetic chronic kidney disease; N18.32 Chronic kidney disease, stage 3b; F10.229 Alcohol dependence with intoxication, unspecified; B02.9 Zoster without complications; K70.31 Alcoholic cirrhosis of liver with ascites; G47.33 Obstructive sleep apnea (adult) (pediatric); E11.42 Type 2 diabetes mellitus with diabetic polyneuropathy; K21.9 Gastro-esophageal reflux disease without esophagitis; D63.8 Anemia in other chronic diseases classified elsewhere; G62.1 Alcoholic polyneuropathy; M19.90 Unspecified osteoarthritis, unspecified site; D63.1 Anemia in chronic kidney disease; I87.2 Venous insufficiency (chronic) (peripheral); I65.22 Occlusion and stenosis of left carotid artery; L30.9 Dermatitis, unspecified; Z96.641 Presence of right artificial hip joint; Z90.710 Acquired absence of both cervix and uterus; Z98.42 Cataract extraction status, left eye; Z98.41 Cataract extraction status, right eye
CPT/HCPCS: 36415; 36556; 36600; 70450; 71045; 71250; 72125; 74176; 76775; 80053; 80202; 80307; 81001; 82077; 82140; 82436; 82550; 82570; 82805; 82948; 83605; 83690; 83735; 83880; 84100; 84133; 84300; 84443; 84484; 85018; 85025; 85610; 85730; 85999; 86850; 86900; 86901; 87040; 87086; 87186; 87635; 87637; 87641; 93005; 96365; 96366; 96367; 96375; 96376; 97110; 97161; 97166; 97530; 99291; A9270; C1751; C8929; J0133; J0692; J1171; J1644; J1815; J1939; J2543; J3370; J3411; J7060; J7120; P9047; Q5105; Q9957

== ENCOUNTER 2025-01-09 11:02 | Outpatient (NON) | payer MEDICARE, SELFPAY ==
[2025-01-09 11:33] LABS: Albumin Level 3.3 g/dL (3.5-5.1); Anion Gap 15 mmol/L (4-12); Blood Urea Nitrogen 22 mg/dL (7-17); Calcium 8.6 mg/dL (8.4-10.2); Carbon Dioxide 22 mmol/L (22-30); Chloride 96 mmol/L (98-107); Estimated Glomerular Filt Rate 31; Glucose 67 mg/dL (65-110); Magnesium 1.9 mg/dL (1.6-2.3); Potassium 3.8 mmol/L (3.4-5.0); Sodium 133 mmol/L (137-145)
--- OUTSIDE RECORDS SUMMARY | 2025-01-09 12:21 | XMS_ITS ---
Author Organization [facility] Address [address] [place] [address] Care Team Providers Care Third Steel Pourer Name Role Phone Ramesh Smith Primary Care Provider UnavailDr. Juan Doherty Unavailable [phone] Wilfrido Harley Unavailable Unavailable [facility], Provider Unavailable Unavailab le Allergies Allergen (clinical drug ingredient) Drug/Non Drug Allergy documented on EMR Reaction Allergy Type Onset Date Status codeine Codeine Unknown Drug Allergy Active REASON FOR VISIT [facility] Conversion Encounter Medications Medication SIG (Take, Route, Frequency, Duration) Notes Start Date End Date Status Atorvastatin Calcium 10 MG 1 tab(s) orally once a day for 30 day(s) Active Alendronate Sodium 70 MG 1 tab(s) orally once a week for 28 day(s) Active HumaLOG 100 UNIT/ML 3 subcutaneously ac Active PriLOSEC OTC 20 MG 1 tab(s) orally once a day for 14 day(s) Active Labetalol HCl 100 MG 1 tab(s) orally Qday Active Sodium Chloride 1 GM as directed Active Furosemide 20 MG 1 tab(s) orally once a day for 30 day(s) Active Clobetasol Propionate 0.05 % 1 mike applied topically 2 times a day for 14 day(s) Active Potassium Chloride ER 10 MEQ 1 tab(s) orally 2 times a day for 30 day(s) Active Lantus 100 UNIT/ML 0 subcutaneously hs Active Encounters Encounter Location Date Provider Diagnosis [facility] [address] [place] [address] 03/30/2024 Provider [facility] Plan Of Treatment No Information Progress Notes * Lizzeth JOYhDOB:1955 (69 yo F)Acc No.[id number]:03/30/2024 Patient: Lou HARRIS Provider: Edel Taylor :1955 A ge:68 Y S ex:Female Date:03/30/2024 [facility] Pcp:Ramesh Smith Subjective: * Chief Complaints: * [facility] * Medical History: * Medications: [...] Electronic signature of Prov ider [facility] on 01/09/2025 at 12:21 PM CDT Sign off status: Pending * Provider: Edel Taylor Date: 0 03/30/2024 Generated for Mare kathleen/Tao/Rach on: 0 01/09/2025 12:21 PM CDT
--- OUTSIDE RECORDS SUMMARY | 2025-01-09 12:21 | XMS_ITS | Clinical Summary ---
Author Organization [facility] Address [address] [place] [id number] Phone Care Team Providers Care Regional Vice President Life Sales Name Role Phone Dariel Horvath DO Primary Care Provider [phone] Allergies Active Allergy Reactions Criticality Noted Date Comments Codeine Unknown,Headache 02/27/2019 Medications Medication Sig Dispensed Refills Start Date End Date Status aspirin (ST MAGGY) 81 MG EC tablet TK 1 T PO QD 02/15/2020 Active atorvastatin (LIPITOR) 10 MG tablet TK 1 T PO D 03/25/2020 Active clobetasol (TEMOVATE) 0.05 % cream NEDRA EXT AA BID FOR 2 WKS 03/31/2020 Active MAGNESIUM-OXIDE 400 (241.3 Mg) MG tablet TK 1/2 T PO Q 12 H 02/29/2020 Active BD PEN NEEDLE KORIN U/F 32G X 4 MM misc USE TO INJECT INSULIN QID 01/02/2020 Active LANTUS SOLOSTAR 100 UNIT/ML injection INJ 10 UNITS QAM AND 20 UNITS QPM 03/25/2020 Active ONETOUCH ULTRA test strip TEST BLOOD SUGAR QID 03/23/2020 Acti ve folic acid (FOLVITE) 1 MG tablet TK 1 T PO D 02/29/2020 Active thiamine (VITAMIN B-1) 100 MG tablet TK 1 T PO QAM FOR 30DAYS UNTIL FURTHER RECOMMENDATION FROM YOUR PCP 08/19/2020 Active losartan (COZAAR) 100 MG tablet Take 100 mg by mouth 1 (one) time each day 12/28/2020 Active furosemide (LASIX) 20 MG tablet Take 0.5 tablets (10 mg total) by mouth 2 (two) times a day 30 tablet 11 05/27/2021 Active labetalol (NORMODYNE) 100 MG tablet Take 100 mg by mouth 2 (two) times a day 11/12/2021 Active sodium chloride 1 g tablet Take 1 tablet (1 g total) by mouth 1 (one) time each day in the morning 90 tablet 3 12/08/2021 Active alendronate (FOSAMAX) 70 MG tablet Take 70 mg by mouth 1 (one) time per week 05/30/2022 Active dilTIAZem SR (CARDIZEM SR) 60 MG 12 hr capsule Take 60 mg by mouth 2 (two) times a day 03/17/2022 Active Active Problems Problem Noted Date Diagnosed Date Type 2 diabetes mellitus without complication Lymphedema of bilateral lower limbs 03/05/2019 Overview (04/08/2020): Last Assessment & Plan: Patient with bilateral lower extremity chronic edema, and varicosities. Patient has been utilizing compression therapy without relief of edema, for greater than 6 months. Plan: No surgical or procedural intervention indicated this time. Recommending continued compression therapy, and compression pump for management of edema. Plan for follow-up on as-needed basis. Hyponatremia Hypertension Diabetes mellitus Hyperlipidemia Alcoholic liver disease Neuropathy Gastroesophageal reflux disease Osteoarthritis Immunizations Name Administration Dates Next Due Influenza, Injectable, Quadrivalent 07/29/2020 Pneumococcal Conjugate 13-Valent 09/24/2019 Sars-cov-2, Unspecified 01/05/2021 Family History Medical History Relation Comments Atrial fibrillation Father Coronary artery disease Father COPD Mother Diabetes mellitus Mother Hypertension Mother Relation Status Comments Father Mother Social History Tobacco Use Types Packs/Day Years Used Date Smoking Tobacco: Former Cigarettes Q uit: 2005 Smokeless Tobacco: Never Alcohol Use Standard Drinks/Week Comments Not Currently 0 (1 standard drink = 0.6 oz pur e alcohol) Sex and Gender Information Value Date Recorded Sex Assigned at Not on file Gender Identity Not on file Sexual Orientation Not on file Last Filed Vital Signs Vital Sign Reading Time Taken Comments Blood Pressure 134/76 06/09/2022 10:50 AM CDT Pulse - - Temperature 36.6 C (97.9 F) 06/09/2022 10:50 AM CDT Respiratory Rate 18 06/09/2022 10:5 0 AM CDT Oxygen Saturation - - Inhaled Oxygen Concentration - - Weight 89.3 kg (196 lb 12.8 oz) 022 10:50 AM CDT Height 166.4 cm (5' 5.5 ) 06/09/2022 10 :50 AM CDT Body Mass Index 32.25 06/09/2022 10:50 AM CDT Plan of Treatment Health Maintenance Due Date Last Done Comments Pneumococcal PPSV23/PCV13 65 + Years / Low and Medium Risk (2 of 3 - PPSV23 or PCV20) 09/24/2020 09/24/2019 Influenza Vaccine (#1) 2024 Care Teams Regional Vice President Life Sales Relationship Specialty Start Date End Date Dariel Horvath DO [address] [facility] [address] [place] [address] PCP - General Internal Medicine 05/27/21
--- OUTSIDE RECORDS SUMMARY | 2025-01-09 12:21 | XMS_ITS ---
Author Organization [facility] Address [address] [place] [address] Care Team Providers Care Senior Integration Architect Name Role Phone Ramesh Smith Primary Care Provider Dr. Juan Hartmann Unavailable [phone] Wilfrido Harley Unavailable Allergies Allergen (clinical drug ingredient) Drug/Non Drug Allergy documented on EMR Reaction Allergy Type Onset Date Status codeine codeine Unknown Drug Allergy Active REASON FOR VISIT Dizziness and gait disturbance Medications Medication SIG (Take, Route, Frequency, Duration) Notes Start Date End Date Status FUROSEMIDE 20 mg 1 tab(s) orally once a day for 30 day(s) Active ALENDRONATE 70 mg 1 tab(s) orally once a week for 28 day(s) Active LABETALOL 100 mg 1 tab(s) orally Qday Active CLOBETASOL TOPICAL 0.05% 1 mike applied t opically 2 times a day for 14 day(s) Active PRILOSEC OTC 20 mg 1 tab(s) orally once a day for 14 day(s) Active LANTUS 100 units/mL 0 subcutaneously hs Active POTASSIUM CHLORIDE 10 mEq 1 tab(s) orall y 2 times a day for 30 day(s) Active HUMALOG 100 units/mL 3 subcutaneously ac Active SODIUM CHLORIDE 1 g as directed Active ATORVASTATIN 10 mg 1 tab(s) orally once a day for 30 day(s) Active Problems Problem Type SNOMED Code ICD Code Onset Dates Problem Status W/U Status Risk Notes Problem Chronic migraine without aura, non-intractable (398972353640667) Chronic migraine without aura, not intractable, without status migrainosus (G43.709) Active confirmed Problem Alcohol dependence (43001556) Alcohol dependence, uncomplicated (F10.20) Active confirmed Problem Cerebral degeneration associated with another disorder (211994800) 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 confirmed Problem Alcoholic polyneuropathy (4765251) 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 confirmed Problem Polyneuropathy due to type 2 diabetes mellitus (720870578) Type 2 diabetes mellitus with diabetic polyneuropathy (E11.42) Active confirmed Problem Neurogenic claudication (991470265) Spinal stenosis, lumbar region with neurogenic claudication (M48.062) Active confirmed Problem Abnormal gait (86707217) Other abnormalities of gait and mobility (R26.89) Active confirmed Problem Malaise (733876238) Other malaise (R53.81) Active confirmed Problem Orthostatic hypotension (60969460) Orthostatic hypotension (I95.1) Active confirmed Problem Hypo-osmolality and or hyponatremia (348256396) Hypo-osmolality and hyponatremia (E87.1) Active confirmed Vital Signs Blood pressure systolic 130 mm Hg 08/30/20 23 Blood pressure diastolic 85 mm Hg 023 Respiratory Rate 16 /min 08/30/2023 Height 65 in 08/30/2023 Weight 192 lbs 08/30/2023 BMI 31.95 kg/m2 08/30/2023 Oximetry 100 % 08/30/2023 Encounters Encounter Location Date Provider Diagnosis [facility] [address] [address] 08/30/2023 Juan Alvarado Alcohol dependence, uncomplicated F10.20 ; Degeneration of nervous system due to alcohol G31.2 ; Alcoholic polyneuropathy G62.1 ; Type 2 diabetes mellitus with diabetic polyneuropathy E11.42 ; Spinal stenosis, lumbar region with neurogenic claudication M48.062 ; Other abnormalities of gait and mobility R26.89 ; Other malaise R53.81 ; Orthostatic hypotension I95.1 and Hypo-osmolality and hyponatremia E87.1 Assessments Encounter Date Diagnosis (ICD Code) Assessment Notes Treatment Notes Treatment Clinical Notes Section Notes 08/30/2023 Alcohol dependence, uncomplicated (ICD-10 - F10.20) Counseled alcohol cessation. I think her dizziness is dizziness is a combination of ataxia and lightheadedness related to orthostasis, volume depletion and peripheral autonomic dysfunction from peripheral neuropathy. The peripheral neuropathy is likely due to the combined effects of long-term alcohol abuse and diabetes. She also has tremors and gait ataxia due to effects on the cerebellum from long-term alcohol abuse. 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 I think her dizziness is dizziness is a combination of ataxia and lightheadedness related to orthostasis, volume depletion and peripheral autonomic dysfunction from peripheral neuropathy. The peripheral neuropathy is likely due to the combined effects of long-term alcohol abuse and diabetes. She also has tremors and gait ataxia due to effects on the cerebellum from long-term alcohol abuse. Finally, she has severe lumbar spinal stenosis with neurogenic claudication and she is quite physically deconditioned 08/30/2023 Alcoholic polyneuropathy (ICD-10 - G62.1) Counseled alcohol cessation. I think her dizziness is dizziness is a combination of ataxia and lightheadedness related to orthostasis, volume depletion and peripheral autonomic dysfunction from peripheral neuropathy. The peripheral neuropathy is likely due to the combined effects of long-term alcohol abuse and diabetes. She also has tremors and gait ataxia due to effects on the cerebellum from long-term alcohol abuse. Finally, she has severe lumbar spinal stenosis with neurogenic claudication and she is quite physically deconditioned 08/30/2023 Type 2 diabetes mellitus with diabetic polyneuropathy (ICD-10 - E11.42) Glycemic control. I think her dizziness is dizziness is a combination of ataxia and lightheadedness related to orthostasis, volume depletion and peripheral autonomic dysfunction from peripheral neuropathy. The peripheral neuropathy is likely due to the combined effects of long-term alcohol abuse and diabetes. She also has tremors and gait ataxia due to effects on the cerebellum from long-term alcohol abuse. Finally, she has severe lumbar spinal stenosis with neurogenic claudication and she is quite physically deconditioned 08/30/2023 Spinal stenosis, lumbar region with neurogenic claudication (ICD-10 - M48.062) Agree with lumbar spinal injections. She is likely not an appropriate surgical candidate (osteoporosis, liver cirrhosis and chronic hyponatremia, physical deconditioning, etc.). Would recommend weight loss I think her dizziness is dizziness is a combination of ataxia and lightheadedness related to orthostasis, volume depletion and peripheral autonomic dysfunction from peripheral neuropathy. The peripheral neuropathy is likely due to the combined effects of long-term alcohol abuse and diabetes. She also has tremors and gait ataxia due to effects on the cerebellum from long-term alcohol abuse. Finally, she has severe lumbar spinal stenosis with neurogenic claudication and she is quite physically deconditioned 08/30/2023 Other abnormalities of gait and mobility (ICD-10 - R26.89) Walker, gait safety. I think her dizziness is dizziness is a combination of ataxia and lightheadedness related to orthostasis, volume depletion and peripheral autonomic dysfunction from peripheral neuropathy. The peripheral neuropathy is likely due to the combined effects of long-term alcohol abuse and diabetes. She also has tremors and gait ataxia due to effects on the cerebellum from long-term alcohol abuse. Finally, she has severe lumbar spinal stenosis with neurogenic claudication and she is quite physically deconditioned 08/30/2023 Other malaise (ICD-10 - R53.81) She would likely benefit from PT. I think her dizziness is dizziness is a combination of ataxia and lightheadedness related to orthostasis, volume depletion and peripheral autonomic dysfunction from peripheral neuropathy. The peripheral neuropathy is likely due to the combined effects of long-term alcohol abuse and diabetes. She also has tremors and gait ataxia due to effects on the cerebellum from long-term alcohol abuse. Finally, she has severe lumbar spinal stenosis with neurogenic claudication and she is quite physically deconditioned 08/30/2023 Orthostatic hypotension (ICD-10 - I95.1) Recommend compression socks. Normally I would recommend increased fluid intake, however, I advised her to discuss this with her Mission Manager as too much increased free water intake could worsen her hyponatremia I think her dizziness is dizziness is a combination of ataxia and lightheadedness related to orthostasis, volume depletion and peripheral autonomic dysfunction from peripheral neuropathy. The peripheral neuropathy is likely due to the combined effects of long-term alcohol abuse and diabetes. She also has tremors and gait ataxia due to effects on the cerebellum from long-term alcohol abuse. Finally, she has severe lumbar spinal stenosis with neurogenic claudication and she is quite physically deconditioned 08/30/2023 Hypo-osmolality and hyponatremia (ICD-10 - E87.1) Follow-up with Nephrology I think her dizziness is dizziness is a combination of ataxia and lightheadedness related to orthostasis, volume depletion and peripheral autonomic dysfunction from peripheral neuropathy. The peripheral neuropathy is likely due to the combined effects of long-term alcohol abuse and diabetes. She also has tremors and gait ataxia due to effects on the cerebellum from long-term alcohol abuse. Finally, she has severe lumbar spinal stenosis with neurogenic claudication and she is quite physically deconditioned Plan Of Treatment Treatment Notes Assessment Notes Alcohol dependence, uncomplicated Counse led alcohol cessation. Degeneration of nervous syst em due to alcohol Counseled alcohol cessation. Alcoholic polyneuropathy Counseled alcoh ol cessation. Type 2 diabetes mellitus wit h diabetic polyneuropathy Glycemic control. Spinal stenosis, lumbar jack on with neurogenic claudication Agree with lumbar spinal injections. She is likely not an appropriate surgical candidate (osteoporosis, liver cirrhosis and chronic hyponatremia, physical deconditioning, etc.). Would recommend weight loss Other abnormalities of gait and mobility Walker, gait safety. Other malaise She would likely vaibhav efit from PT. Orthostatic hypotension Recommend compre ssion socks. Normally I would recommend increased fluid intake, however, I advised her to discuss this with her Mission Manager as too much increased free water intake could worsen her hyponatremia Hypo-osmolality and hyponatremia Follow- up with Nephrology Next Appt Details Follow Up: prn, Reason: Eval uation and Management Progress Notes * Lizzeth JOYhDOB:1955 (68 yo F)Acc No.[id number]:08/30/2023 [facility] Patient: Lou Mandujano Provider: Sadia Alvarado MD :1955 A ge:68 Y S ex:Female Date:08/30/2023 Address: [address], [facility] Pcp:Ramesh Smith Subjective: * Chief Complaints: * D izziness and gait disturbance * HPI: * Introduction: I had the pleasure of seeing Cornelio Joy, who presented for evaluation of the above complaints. She was referred by Dr. Harley at [facility]. She is a 68 year old woman with a h/o obesity, HTN, HLD, DM2, mild CKD, chronic alcohol abuse, liver cirrhosis, aosteoarthritis, lumbar DDD, osteoporosis with chronic compression fractures in the thoracolumbar spine, physical deconditioning and chronic gait difficulty. She has had problems with mobility for the last 2.5-3 years. S he has a history of chronic alcohol abuse for many years for 20-30 years. She has developed liver cirrhosis as a result of this. She has chronic hyponatremia as a result of this, usually in the range of 125- 129 or so. She also has mild CKD, prior Cr ranges from 1.2-1.8, usually 1.2-1.3. She has also had type II diabetes for over 15 years. She reports a history of chronic peripheral neuropathy. She reports that for over 15 years she has had symptoms of peripheral neuropathy. She felt like she was walking on bricks and she felt like she didn't feel the ground well with her feet, started to develop numbness/tingling in the soles of both feet, started to develop rare to occasional neuropathic pain in her feet, over time has not progressed that much according to patient, she only feels numbness/tingling in her feet, not in lower legs or hands. After developing peripheral neuropathy, she started to have mild imbalance as well. She did reasonably well until about 3 or 4 years ago. She started to have more problems with intermittent lightheadedness and dizziness and some worsening of her balance. She has had episodes of syncope. This was most often precipitated by worsening of hyponatremia. She has also falls without syncope, one which led to a hip fracture back in 2019. She also started to have more difficulty with chronic low back pain, worse with attempts at standing and walking. She also described clear-cut neurogenic claudication which has worsened over time. She has had limited mobility over the last few years and has developed physical deconditioning. She uses a walker, mostly can just stand/transfer or go room to room in the house, cannot walk any distance, still lives independently and independent with ADLs. She has previously but not recently done physical therapy. Dr. Hraley ordered a L-spine MRI. The L -spine MRI from 08/25/23: Chronic compression fractures T11, L1, L2, L4, L5. There is 3 mm anterolisthesis of L4 on L5. There is multilevel disc bulge and facet athropathy. There is moderate central stenosis at L1/L2; severe central stenosis at L3/L4 and L4/L5. There is multilevel foraminal stenosis. Dr. Harley is planning an epidural steroid injection. I n regards to her dizziness, I reviewed this in more detail. This is an intermittent symptom. This is described primarily as predominantly a lightheaded feeling, associated with a feeling of warmth, sometimes associated with a vague vertiginous sensation, can sometimes feel slight nausea, can get this to remit by lying down. This occurs most commonly when upright or walking, but rarely can start to develop even when sitting, but always most prominent or likely when upright, never happens with lying down. This sounds like a combination of orthostasis and vasovagal. Fluid intake is limited . * ROS: C ONSTITUTIONAL: weakness y es. f atigue yes. E NT: Positive P atient denies ear fullness or pain or sinus pain. R ESPIRATORY: no s hortness of breath. n o c hest pain. ? O PHTHALMOLOGY: blurring of vision y es. n o l oss of vision. ? E NDOCRINOLOGY: fatigue y es. d iabetes yes. C ARDIOLOGY: dizziness y es. l eg edema y es. G ASTROENTEROLOGY: no a bdominal pain. n o c onstipation. ? U ROLOGY: no d ifficulty urinating. D ERMATOLOGY: rash y es. N EUROLOGY: Positive for R eviewed and except as mentioned above in the HPI is negative. H EMATOLOGY/LYMPH: Positive for P atient denies history of excessive bruising or bleeding diasthesis. M USCULOSKELETAL: joint stiffness y es. l eg cramps y es. j oint pain y es. P SYCHOLOGY: no d epression. n o a nxiety. * Medical History: * Surgical History: R hip replacement L hip replacement Lumbar discectomy B cataract * Hospitalization/Major Diagno stic Procedure: * Family History: Positive for diabetes and heart disease in her parents. 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 She reports that she drinks less now than she used to but still overuses alcohol. * Medications: T akingPriLOSEC OTC 20 mg delayed release tablet 1 tab(s) orally once a dayalendronate 70 mg tablet 1 tab(s) orally once a weekHumaLOG 100 units/mL solution 3 subcutaneously acatorvastatin 10 mg tablet 1 tab(s) orally once a daySodium Chloride 1 g tablet as directed potassium chloride 10 mEq tablet, extended release 1 tab(s) orally 2 times a dayLantus 100 units/mL solution 0 subcutaneously hsfurosemide 20 mg tablet 1 tab(s) orally once a dayclobetasol topical 0.05% cream 1 mike applied topically 2 times a daylabetalol 100 mg tablet 1 tab(s) orally QdayMedication List reviewed and reconciled with the patientTaking PriLOSEC OTC 20 mg delayed release tablet 1 tab(s) orally once a dayTaking alendronate 70 mg tablet 1 tab(s) orally once a weekTaking HumaLOG 100 units/mL solution 3 subcutaneously acTaking atorvastatin 10 mg tablet 1 tab(s) orally once a dayTaking Sodium Chloride 1 g tablet as directed Taking potassium chloride 10 mEq tablet, extended release 1 tab(s) orally 2 times a dayTaking Lantus 100 units/mL solution 0 subcutaneously hsTaking furosemide 20 mg tablet 1 tab(s) orally once a dayTaking clobetasol topical 0.05% cream 1 mike applied topically 2 times a dayTaking labetalol 100 mg tablet 1 tab(s) orally QdayMedication List reviewed and reconciled with the patient * Allergies: c odeine Objective: * Vitals: B P:130/85, HR:84 /min, RR:16 /min, Pulse Oximetry:100 %, Ht:65 in, Wt:192 lbs, BMI:31.95 Index. * Examination: G eneral examination: General appearance: P leasant, well-developed, no distress.? Mildly obese. HEENT: P upils equal, round and reactive to light. Oral cavity: N ormal, no lesions. Neck, thyroid : S upple, non-tender, no anterior cervical lymphadenopathy. Breasts : N ot performed. Heart: R RR, S1-S2, no murmurs. Lungs: C lear to auscultation and percussion in all lung freeman. Abdomen: S oft, NT/ND. Neurologic exam: A lert and oriented x 4. Fluent speech. Intact recall, fund of knowledge. Appropriate affect. PERRL. EOMI without nystagmus. No visual field cut. Facial sensation intact to light touch and pinprick in bilateral V1/V2/V3. Facial movements normal and symmetric. Hearing intact to finger rub bilaterally. Palate symmetrically upgoing. Tongue midline. Motor 5/5 strength in bilateral upper extremities and proximal bilateral LEs, slight 4+/5 weakness bilateral distal lower extremities with dorsiflexion and toe extension. Reflexes 1+/2 and symmetric except for absent ankle jerks. Bilateral flexor plantar responses. Sensory exam showed absent vibration sensation in both feet, diminished pin sensation in a symmetric stocking distribution to mid calf. Cerebellar testing showed subtle bilateral postural tremors and mild bilateral intention tremor. Very unsteady gait, she is ataxic, can improve balance by spreading her feet, difficult to stand with narrow base, and positive Romberg. Skin: S evere bilateral lower extremity venous stasis changes. Peripheral pulses: C annot palpate distal pulses. Back: R educed ROM L-spine. Extremities: M ild peripheral edema. Genitalia: N ot performed. Assessment: * Assessment: 1. A lcohol dependence, uncomplicated - F10.20 (Primary) 2 . D egeneration of nervous system due to alcohol - G31.2 3 . A lcoholic polyneuropathy - G62.1 4 . T ype 2 diabetes mellitus with diabetic polyneuropathy - E11.42 5 . S myrtle stenosis, lumbar region with neurogenic claudication - M48.062 6 . O ther abnormalities of gait and mobility - R26.89 7. O ther malaise - R53.81, physical deconditioning 8 . O rthostatic hypotension - I95.1 9 . H ypo-osmolality and hyponatremia - E87.1 I think her dizziness is diz ziness is a combination of ataxia and lightheadedness related to orthostasis, volume depletion and peripheral autonomic dysfunction from peripheral neuropathy. The peripheral neuropathy is likely due to the combined effects of long-term alcohol abuse and diabetes. She also has tremors and gait ataxia due to effects on the cerebellum from long-term alcohol abuse. Finally, she has severe lumbar spinal stenosis with neurogenic claudication and she is quite physically deconditioned. Plan: * Treatment: 2. D egeneration of nervous system due to alcohol Notes:Counseled alcohol cessation. 3. A lcoholic polyneuropathy Notes:Counseled alcohol cessation. 4. T ype 2 diabetes mellitus with diabetic polyneuropathy Notes:Glycemic control. 5. S myrtle stenosis, lumbar region with neurogenic claudication Notes:Agree with lumbar spinal injections. She is likely not an appropriate surgical candidate (osteoporosis, liver cirrhosis and chronic hyponatremia, physical deconditioning, etc.). Would recommend weight loss 6. O ther abnormalities of gait and mobility Notes:Walker, gait safety. 7. O ther malaise Notes:She would likely benefit from PT. 8. O rthostatic hypotension Notes:Recommend compression socks. Normally I would recommend increased fluid intake, however, I advised her to discuss this with her Mission Manager as too much increased free water intake could worsen her hyponatremia 9. H ypo-osmolality and hyponatremia Notes: Follow-up with Nephrology * Procedure Codes: G 8427 DOC MEDS VERIFIED W/PT OR [id number] FLU IMMUNIZE ORDER/[id number] ACP DISCUSS/DSCN MKR DOCD, Modifiers: 8P G9991 Pneum vax admin 60+G8417 BMI >=30 CALCUATE [id number] TOBACCO NON-LAALU3915 BP SCR PRFRM RCMDD DEFIND SCR INTVL * Preventive Medicine: T his was a 60 minute visit with time spent in reviewing prior records, evaluation and management, and counseling. * Follow Up: p rn (Reason: Evaluation and Management) * Billing Information: * Visit Code: 99020 Office Visit, New Pt., Level 5. Modifiers: 25 * Procedure Codes: G8427 DOC MEDS VERIFIED W/PT OR RE. G8482 FLU IMMUNIZE ORDER/ADMIN. 1123F ACP DISCUSS/DSCN MKR DOCD. Modifiers: 8P G9991 Pneum vax admin 60+. G8417 BMI >=30 CALCUATE W/FOLLOWUP. 1036F TOBACCO NON-USER. G8783 BP SCR PRFRM RCMDD DEFIND SCR INTVL. * ELAIN BUILDUP ASSISTANT Sign off status: Completed true * Provider: Sadia Alvarado MD Date: 10/30/2022 Generated for Mare kathleen/Faxing/eTransmitting on: 0 01/09/2025 12:21 PM CDT History and Physical Notes * HPI (History of Present Illness) Category Sub-Category Detail Notes Category Not es *Introduction I had the pleasure o f seeing Lou Joy, who presented for evaluation of the above complaints. She was referred by Dr. Harley at [facility]. She is a 68 year old woman with a h/o obesity, HTN, HLD, DM2, mild CKD, chronic alcohol abuse, liver cirrhosis, aosteoarthritis, lumbar DDD, osteoporosis with chronic compression fractures in the thoracolumbar spine, physical deconditioning and chronic gait difficulty. She has had problems with mobility for the last 2.5-3 years. She has a history of chronic alcohol abuse for many years for 20-30 years. She has developed liver cirrhosis as a result of this. She has chronic hyponatremia as a result of this, usually in the range of 125-129 or so. She also has mild CKD, prior Cr ranges from 1.2-1.8, usually 1.2-1.3. She has also had type II diabetes for over 15 years. She reports a history of chronic peripheral neuropathy. She reports that for over 15 years she has had symptoms of peripheral neuropathy. She felt like she was walking on bricks and she felt like she didn't feel the ground well with her feet, started to develop numbness/tingling in the soles of both feet, started to develop rare to occasional neuropathic pain in her feet, over time has not progressed that much according to patient, she only feels numbness/tingling in her feet, not in lower legs or hands. After developing peripheral neuropathy, she started to have mild imbalance as well. She did reasonably well until about 3 or 4 years ago. She started to have more problems with intermittent lightheadedness and dizziness and some worsening of her balance. She has had episodes of syncope. This was most often precipitated by worsening of hyponatremia. She has also falls without syncope, one which led to a hip fracture back in 2019. She also started to have more difficulty with chronic low back pain, worse with attempts at standing and walking. She also described clear-cut neurogenic claudication which has worsened over time. She has had limited mobility over the last few years and has developed physical deconditioning. She uses a walker, mostly can just stand/transfer or go room to room in the house, cannot walk any distance, still lives independently and independent with ADLs. She has previously but not recently done physical therapy. Dr. Harley ordered a L-spine MRI. The L-spine MRI from 08/25/23: Chronic compression fractures T11, L1, L2, L4, L5. There is 3 mm anterolisthesis of L4 on L5. There is multilevel disc bulge and facet athropathy. There is moderate central stenosis at L1/L2; severe central stenosis at L3/L4 and L4/L5. There is multilevel foraminal stenosis. Dr. Harley is planning an epidural steroid injection. In regards to her dizziness, I reviewed this in more detail. This is an intermittent symptom. This is described primarily as predominantly a lightheaded feeling, associated with a feeling of warmth, sometimes associated with a vague vertiginous sensation, can sometimes feel slight nausea, can get this to remit by lying down. This occurs most commonly when upright or walking, but rarely can start to develop even when sitting, but always most prominent or likely when upright, never happens with lying down. This sounds like a combination of orthostasis and vasovagal. Fluid intake is limited Examination Category Sub-Category Detail Notes Category Not es General examination HEENT: Pupils equal , round and reactive to light Neck, thyroid : Supple, non-tender, no anterior cervical lymphadenopathy Heart: RRR, S1-S2, no murmu rs Lungs: Clear to auscultatio n and percussion in all lung freeman Abdomen: Soft, NT/ND Extremities: Mild peripheral yael a General appearance: Pleasant, well-devel oped, no distress. Mildly obese Skin: Severe bilateral low er extremity venous stasis changes Neurologic exam: Alert and oriented x 4. Fluent speech. Intact recall, fund of knowledge. Appropriate affect. PERRL. EOMI without nystagmus. No visual field cut. Facial sensation intact to light touch and pinprick in bilateral V1/V2/V3. Facial movements normal and symmetric. Hearing intact to finger rub bilaterally. Palate symmetrically upgoing. Tongue midline. Motor 5/5 strength in bilateral upper extremities and proximal bilateral LEs, slight 4+/5 weakness bilateral distal lower extremities with dorsiflexion and toe extension. Reflexes 1+/2 and symmetric except for absent ankle jerks. Bilateral flexor plantar responses. Sensory exam showed absent vibration sensation in both feet, diminished pin sensation in a symmetric stocking distribution to mid calf. Cerebellar testing showed subtle bilateral postural tremors and mild bilateral intention tremor. Very unsteady gait, she is ataxic, can improve balance by spreading her feet, difficult to stand with narrow base, and positive Romberg Oral cavity: Normal, no lesions Breasts : Not performed Peripheral pulses: Cannot palpate dista l pulses Back: Reduced ROM L-spine Genitalia: Not performed
--- OUTSIDE RECORDS SUMMARY | 2025-01-09 12:22 | XMS_ITS | Clinical Summary ---
Author Organization [facility] at the [facility] Address [address] [place] [address] Care Team Providers Care Reinforcing Steel Placer Name Role Phone Augustus Birch MD Unavailable Ghanshyam Ruiz NP Primary Care Provider [phone] Allergies Active Allergy Reactions Criticality Noted Date Comments Codeine Unknown 02/27/2019 Medications LANTUS SOLOSTAR U-100 INSULIN 100 unit/mL (3 mL) insulin pen Inject 15 Units under the skin nightly 1 01/02/20 19 Active HUMALOG KWIKPEN INSULIN 100 unit/mL insulin pen Inject 3 Units under the skin 3 (three) times a day with meals 1 12/20/19 19 Active ONETOUCH ULTRA BLUE TEST STRIP strip CHECK SUGARS QID 1 02/07/20 19 Active BD ULTRA-FINE SHORT PEN NEEDLE 31 gauge x 5/16 needle U WITH INSULIN PEN 0 12/21/19 19 Active calcitRIOL (ROCALTROL) 0.25 mcg capsule Take 1 capsule (0.25 mcg total) by mouth 4 (four) times a week Sun/Mon/Mon/Mon09/12/20 23 Active pyridoxine (VITAMIN B-6) 100 mg tablet Take 1 tablet (100 mg total) by mouth daily Active cyanocobalamin (Vitamin B-12) 1,000 mcg tabletIndications: Prevention of Vitamin B12 Deficiency Take 3 tablets (3,000 mcg total) by mouth daily Active blood-glucose meter,continuous (Dexcom G6 Logistics Service Representative) misc Activ e thiamine (VITAMIN B1) 100 mg tablet Take 1 tablet (100 mg total) by mouth daily Active ferrous sulfate 325 mg (65 mg of elemental iron) tabletIndications: Iron Deficiency Anemia Take 1 tablet (325 mg total) by mouth daily with breakfast Active atorvastatin (LIPITOR) 10 mg tablet Take 1 tablet (10 mg total) by mouth nightly 03/25/20 20 Active alendronate (FOSAMAX) 70 mg tablet Take 1 tablet (70 mg total) by mouth once a week 05/30/20 22 Active Jardiance 10 mg tablet TAKE 1 TABLET(10 MG) BY MOUTH DAILY 90 tablet 2 02/27/20 24 Active ascorbate calcium, vitamin C, 500 mg tablet Take by mouth Active aspirin 81 mg enteric coated tablet Take 1 tablet (81 mg total) by mouth daily Active fluticasone propionate (FLONASE) 50 mcg/actuation nasal spray Administer 1 spray into each nostril daily Active multivitamin tabletIndications: Vitamin Deficiency Prevention Take 1 tablet by mouth Active spironolactone (ALDACTONE) 25 mg tablet TAKE 1 TABLET(25 MG) BY MOUTH EVERY MORNING 90 tablet 3 10/01/20 24 Active acyclovir (ZOVIRAX) 5 % ointment Apply 1 Application topically daily Active folic acid (FOLVITE) 800 mcg tablet Take 1 tablet (800 mcg total) by mouth daily Active magnesium oxide (MAG-OX) 250 mg (150.8 mg elemental) tabletIndications: hypomagnesemia Take 1 tablet (250 mg total) by mouth daily Active tacrolimus (PROTOPIC) 0.03 % ointment Apply 1 Application topically 2 (two) times a day Active cyclobenzaprine (FLEXERIL) 5 mg tablet Take 1 tablet (5 mg total) by mouth 3 (three) times a day as needed for muscle spasms for up to 14 days 30 tablet 11/20/19 25 Active furosemide (LASIX) 40 mg tablet Take 1 tablet (40 mg total) by mouth daily 30 tablet 11/21/19 25 Active midodrine (PROAMATINE) 10 mg tabletIndications: Symptomatic Orthostatic Hypotension Take 1 tablet (10 mg total) by mouth 3 (three) times a day before meals 90 tablet 11/20/[address] (PROTONIX) 40 mg EC tabletIndications: Treatment of Non-Bleeding Gastric Disorder Take 1 tablet (40 mg total) by mouth 2 (two) times a day 60 tablet 11 11/20/19 25 026 Active propranoloL (INDERAL) 10 mg tablet Take 1 tablet (10 mg total) by mouth 3 (three) times a day 90 tablet 11/20/19 25 Active ondansetron ODT (ZOFRAN-ODT) 4 mg disintegrating tablet Take 1 tablet (4 mg total) by mouth 06/04/20 21 Active albuterol 2.5 mg/0.5 mL solution for nebulization Take by nebulization Active Dexcom G7 Sensor device USE DIRECTED - CHANGE EVERY 10 DAYS 11/12/19 25 Active clobetasoL (TEMOVATE) 0.05 % cream every 12 hours 03/31/20 20 Active dilTIAZem SR (CARDIZEM SR) 60 mg 12 hr capsule Take 1 capsule (60 mg total) by mouth 2 (two) times a day 03/17/20 22 Active docusate sodium (COLACE) 100 mg capsule Take 1 capsule (100 mg total) by mouth 2 (two) times a day 06/04/20 21 Active ibuprofen 200 mg tab/cap Take by mouth every 6 (six) hours as needed Active omeprazole OTC (PriLOSEC OTC) 20 mg EC tablet daily Active sodium chloride 1 gram tablet Take 1 tablet (1 g total) by mouth spool fixer before breakfast 06/04/20 21 Active sodium zirconium cyclosilicate (LOKELMA) 5 gram packet Take 1 packet (5 g total) by mouth daily 06/04/20 21 Active valACYclovir (VALTREX) 1 gram tablet Take 1 tablet (1,000 mg total) by mouth every 8 (eight) hours 10/26/19 25 Active valACYclovir (VALTREX) 500 mg tablet TAKE 2 TABLETS BY MOUTH EVERY 24 HOURS 11/05/19 25 Active Active Problems Problem Noted Date Diagnosed Date Alcoholic liver disease 12/26/2024 Closed fracture of left distal femur 12/26/2024 Diabetes mellitus 12/26/2024 Gastroesophageal reflux disease 12/26/2024 Hyperlipidemia 12/26/2024 Neuropathy 12/26/2024 Osteoarthritis 12/26/2024 Chronic venous insufficiency of lower extremity 11/29/2024 Assessment & Plan (11/29/2024 11:50 AM MOTOR EQUIPMENT COMMANDING OFFICER): Bilateral lower extremity chronic venous insufficiency with lipodermatosclerosis and superficial wounds. has minimal reflux to bilateral lower extremities. ABIs falsely elevated due to noncompressibility of vessels, overall I think majority if not all of her symptoms are due to uncontrolled edema and her being minimally ambulatory since her accident. Continue strict compression therapy local wound care and can follow up with me as needed. CATHRYN (acute kidney injury) 11/14/2024 Cirrhosis of liver without ascites 11/14/2024 Closed fracture of medial plateau of left tibia 11/14/2024 Congestive heart failure, un specified HF chronicity, unspecified heart failure type 11/11/2024 Hyponatremia 05/31/2021 Type 2 diabetes mellitus without complication Lymphedema of both lower extremities 03/05/2019 Assessment & Plan (04/19/2019 11:39 AM CDT): Patient with bilateral lower extremity chronic edema, and varicosities. Patient has been utilizing compression therapy without relief of edema, for greater than 6 months. Plan: No surgical or procedural intervention indicated this time. Recommending continued compression therapy, and compression pump for management of edema. Plan for follow-up on as-needed basis. Assessment & Plan (03/05/2019 4:27 PM CDT): Patient has evidence of primary lymphedema lower extremities. Would best be managed with initial conservative measures that include ongoing compression leg elevation exercise. Also think she would benefit from pneumatic compression devices. Will initiate that process follow-up in 1 week with venous duplex. Encounters Date Type Department Care Team Description 12/26/2024 9:30 AM CDT Office Visit [facility] Medical Group Orthopedics and Sports Medicine [address] [place] [address] [address] [place] [id number] Samara Soto PA Closed fracture of medial portion of left tibial plateau with routine healing, subsequent encounter (Primary Dx) 12/26/2024 9:15 AM CDT - 12/26/2024 11:59 PM CDT Hospital Encounter [facility] 1 DIAG IMG [address] [place] [id number] Closed fracture of medial portion of left tibial plateau, initial encounter Discharge Disposition: Discharge to home or self care 12/25/2024 9:30 AM CDT Office Visit [facility] Cardiology [address] [place] [address] Bridget Nicholson NP Congestive heart failure, unspecified HF chronicity, unspecified heart failure type (HCC) (Primary Dx); Lymphedema of both lower extremities; Closed fracture of medial portion of left tibial plateau, initial encounter; Chronic venous insufficiency of lower extremity 11/27/2024 11:00 AM MOTOR EQUIPMENT COMMANDING OFFICER Office Visit [facility] Vascular at [address] [place] [address] Lexie Rucker MD Chronic venous insufficiency of lower extremity (Primary Dx) 11/26/2024 2:00 PM MOT[employer] EQUIPMENT COMMANDING OFFICER Ancillary Procedure [facility] Vascular and Vein Surgery at [address] [place] [address] Varicose veins of lower extremity with pain, bilateral; Other specified symptoms and signs involving the circulatory and respiratory systems 11/26/2024 1:00 PM MOT[employer] EQUIP[employer] COMMANDING OFFICER Ancillary Procedure [facility] Vascular and Vein Surgery at [address] [place] [address] Varicose veins of lower extremity with pain, bilateral 11/25/2024 Orders Only [facility] Cardiology [address] [place] [address] [address] [place] [address] Bridget Nicholson NP 11/21/2024 Telephone [facility] Nephrology at [address] [place] [address] Bravo Mckenzie MD 11/11/2024 5:12 PM MOTOR EQUIPMENT COMMANDING OFFICER - 11/20/2024 6:14 PM MOTOR EQUIPMENT COMMANDING OFFICER Hospital Encounter [facility] 5 Med Surg [facility] [place] [address] Bravo Chino MD Ogbu[place], MD Devorah Mejias Akhil, MD Singh, Joe Crowell MD Congestive heart failure, unspecified HF chronicity, unspecified heart failure type (HCC) (Primary Dx); Pneumonia due to infectious organism, unspecified laterality, unspecified part of lung; CATHRYN (acute kidney injury) (HCC) [N17.9]; Cirrhosis of liver without ascites, unspecified hepatic cirrhosis type (HCC) [K74.60]; Closed fracture of medial portion of left tibial plateau, initial encounter [S82.132A] Discharge Disposition: Discharge to [facility] 11/07/2024 Orders Only [facility] Medical [facility] Cardiology [address] [place] [address] Jc Schaffer MD 10/30/2024 Telephone [facility] Medical [facility] Cardiology [address] [place] [address] Carlitos Edmonds MD from Last 3 Months Immunizations Immunization Administration Dates Next Due Influenza, Unspecified 07/16/2024 Surgical History Surgery Date Site/Laterality Comments HYSTERECTOMY 10/16/1996 - 10/15/1997 CATARACT EXTRACTION, BILATERAL 10/16/2004 - 10/15/2005 DISCECTOMY 10/16/2004 - 10/15/2005 L2-L3 TOTAL HIP ARTHROPLASTY 10/16/2005 - 10/15/2006 Right ORIF PROXIMAL TIBIAL PLATEAU FRACTURE 10/16/2015 - 10/15 CATARACT EXTRACTION FRACTURE SURGERY FLUORO GUIDED ASPIRATION KNEE LEFT 11/13/2024 Left Medical History Medical History Date Comments Diabetes (HCC) CHF (congestive heart failure) (HCC) Edema Alcohol abuse Hypokalemia Disorder of kidney and ureter GERD (gastroesophageal reflux disease) Osteoporosis Heart disease Hypertension Sleep apnea Family History Medical History Relation Name Comments Cancer Brother 1 Juan Diabetes Brother 2 Casper Heart disease Father Bar Atrial fibrillation Mother Maddie COPD Mother Maddie Hypertension Mother Maddie Pancreatic cancer Other Rashes / Skin problems Other Rheum arthritis Other Relation Name Status Comments Brother 1 Juan Brother 2 Casper Father Bar Mother Maddie Alive Other Social History Tobacco Use Types Packs/Day Years Used Date Smoking Tobacco: Former Cigarettes 1 30 Q uit: 2006 Smokeless Tobacco: Never Tobacco Cessation:Counseling Given: Not Answered [facility] Utilities Answer Date Recorded In the past 12 months has e [place], gas, oil, or water [employer] threatened to shut off services in your home? No 11/12/2024 Social Connection and Isolat ion Panel [NHANES] Answer Date Recorded In a typical week, how many times do you talk on the phone with family, friends, or neighbors? More than three times a week 11/12/2024 How often do you get togethe r with friends or relatives? Twice a week 11/12/2024 How often do you attend chur ch or yarsanism services? More than 4 times per year 11/12/2024 Do you belong to any clubs o r organizations such as yazdanism groups, unions, fraternal or athletic groups, or school groups? No 11/12/2024 How often do you attend meet ings of the clubs or organizations you belong to? Never 11/12/2024 Are you , , di vorced, , never , or living with a partner? 11/12/2024 AUDIT-C Answer Date Recorded Q1: How often do you have a drink containing alcohol? 4 or more times a week 11/12/2024 Q2: How many drinks containi ng alcohol do you have on a typical day when you are drinking? 1 or 2 Q3: How often do you have si x or more drinks on one occasion? Less than monthly 11/12/2024 Overall Financial Resource Strain (CARDIA) Answe r Date Recorded How hard is it for you to pa y for the very basics like food, housing, medical care, and heating? Not hard at all 11/12/2024 Hunger Vital Sign Answer Date Recorded Within the past 12 months, y ou worried that your food would run out before you got the money to buy more. Never true 11/12/19 25 Within the past 12 months, t he food you bought just didn't last and you didn't have money to get more. Never true 11/12/2024 PRAPARE - Transportation Answer Date Re corded In the past 12 months, has l ack of transportation kept you from medical appointments or from getting medications? No 10/17 In the past 12 months, has l ack of transportation kept you from meetings, work, or from getting things needed for daily living? No 11/12/2024 Housing Stability Vital Sign Answer Joao e Recorded In the last 12 months, was t here a time when you were not able to pay the mortgage or rent on time? No 11/12/2024 In the past 12 months, how m any times have you moved where you were living? 0 11/12/2024 At any time in the past 12 m [facility], were you homeless or living in a correction (including now)? No 11/12/2024 Personal Safety Answer Date Recorded Have you ever been in or are you currently in a harmful physical or emotional relationship or is someone making you feel afraid or unsafe? Denies 11/20/2024 Comments Unknown Sex and Gender Information Value Date Recorded Sex Assigned at Not on file Legal Sex Female 1:34 PM CDT Gender Identity Not on file Sexual Orientation Not on file Obstetrics History Last Filed Vital Signs Vital Sign Reading Time Taken Comments Blood Pressure 100/50 12/25/2024 9:24 AM CDT Pulse 96 12/25/2024 9:24 AM CDT Temperature 36.4 C (97.5 F) 11/20/2024 4:02 AM MOT[employer] EQUIPMENT COMMANDING OFFICER Respiratory Rate 18 11/20/2024 8:44 AM MOT[employer] EQUIPMENT COMMANDING OFFICER Oxygen Saturation 99% 12/25/2024 9:24 AM CDT Inhaled Oxygen Concentration - - Weight 65.3 kg (144 lb) 12/25/2024 9:24 AM CDT Height 165.1 cm (5' 5 ) 12/25/2024 9:24 AM CDT Body Mass Index 23.96 12/25/2024 9:24 AM CDT Plan of Treatment Health Maintenance Due Date Last Done Comments Albumin Creatinine Ratio, Urine 1954 Breast Cancer Screening-Mammogram 1954 Colon Cancer Screening-Colonoscopy 1954 Depression Screening 1954 Hepatitis C Screening 1954 Osteoporosis Screening-Bone Density Scan 1954 Dilated Eye Exam 1954 Foot Exam 1954 DTaP/Tdap/Td Vaccine (1 - Tdap) 1965 Hepatitis B Screening 1972 Zoster Vaccine (2 of 3) 08/15/2018 06/20/2018 Well Visit 65+ 2019 Pneumococcal vaccine 65+ (2 of 2 - PPSV23) 11/19/2019 09/24/2019 Covid-19 Vaccine (8 - 2023-2 5 season) 2024 07/17/2023, 07/22/2022, 05/05/2022, Additional history exists Lipid Panel 11/15/2024 11/15/2023 Hemoglobin A1C 05/16/2025 11/16/2024, 05/31/2021 Fall Risk Assessment 11/19/2025 11/19/2024 eGFR 11/20/2025 11/20/2024, 02/0 01/2025, 11/18/2024, Additional history exists Influenza Vaccine Completed 07/16/2024, , 07/22/2022, Additional history exists Procedures Procedure Name Priority Date/Time Associated Diagnosis Comments XR TIBIA FIBULA LEFT 2 VIEWS Schedule Routine, Read Routine (OP Routine) 12/26/2024 9:26 AM CDT Closed fracture of medial portion of left tibial plateau, initial encounter US SONIA Schedule Routine, Read Routine (OP Routine) 11/26/2024 2:32 PM MOT[employer] EQUIP[employer] COMMANDING OFFICER Varicose veins of lower extremity with pain, bilateral Other specified symptoms and signs involving the circulatory and respiratory systems US VENOUS REFLUX BILATERAL Routine 11/26/2024 2:32 PM MOT[employer] EQUIP[employer] COMMANDING OFFICER Varicose veins of lower extremity with pain, bilateral POCT GLUCOSE DEVICE Routine 11/20/2024 5 :57 PM MOT[employer] EQUIPMENT COMMANDING OFFICER POCT GLUCOSE DEVICE Routine 11/20/2024 1 2:28 PM MOT[employer] EQUIPMENT COMMANDING OFFICER POCT GLUCOSE DEVICE Routine 11/20/2024 8 :57 AM MOTOR EQUIPMENT COMMANDING OFFICER EGFR Routine 11/20/2024 5:33 AM MOTOR EQUIPMENT COMMANDING OFFICER DIFFERENTIAL AUTO Routine 11/20/2024 5:3 3 AM MOTOR EQUIPMENT COMMANDING OFFICER COMPREHENSIVE METABOLIC PANEL Routine 11/20/2024 5:33 AM MOTOR EQUIPMENT COMMANDING OFFICER CBC WITH AUTO DIFFERENTIAL Routine 11/20/2024 5:33 AM MOTOR EQUIPMENT COMMANDING OFFICER POCT GLUCOSE DEVICE Routine 11/19/2024 8 :57 PM MOTOR EQUIPMENT COMMANDING OFFICER POCT GLUCOSE DEVICE Routine 11/19/2024 5 :10 PM MOTOR EQUIPMENT COMMANDING OFFICER POCT GLUCOSE DEVICE Routine 11/19/2024 1 2:24 PM MOTOR EQUIPMENT COMMANDING OFFICER POCT GLUCOSE DEVICE Routine 11/19/2024 1 1:36 AM MOTOR EQUIPMENT COMMANDING OFFICER POCT GLUCOSE DEVICE Routine 11/19/2024 8 :22 AM MOTOR EQUIPMENT COMMANDING OFFICER EGFR Routine 11/19/2024 6:23 AM MOTOR EQUIPMENT COMMANDING OFFICER DIFFERENTIAL AUTO Routine 11/19/2024 6:2 3 AM MOTOR EQUIPMENT COMMANDING OFFICER AMMONIA Routine 11/19/2024 6:23 AM MOTOR EQUIPMENT COMMANDING OFFICER COMPREHENSIVE METABOLIC PANEL Routine 11/19/2024 6:23 AM MOTOR EQUIPMENT COMMANDING OFFICER CBC WITH AUTO DIFFERENTIAL Routine 11/19/2024 6:23 AM MOTOR EQUIPMENT COMMANDING OFFICER POCT GLUCOSE DEVICE Routine 11/18/2024 8 :46 PM MOTOR EQUIPMENT COMMANDING [employer]ICER CT ABDOMEN PELVIS WO CONTRAST IP Routine 11/18/2024 8:34 PM MOTOR EQUIPMENT COMMANDING OFFICER POCT GLUCOSE DEVICE Routine 11/18/2024 5 :49 PM MOTOR EQUIPMENT COMMANDING OFFICER POCT GLUCOSE DEVICE Routine 11/18/2024 1 2:43 PM MOTOR EQUIPMENT COMMANDING OFFICER POCT GLUCOSE DEVICE Routine 11/18/2024 7 :55 AM MOTOR EQUIPMENT COMMANDING OFFICER DIFFERENTIAL AUTO Routine 11/18/2024 6:3 5 AM MOTOR EQUIPMENT COMMANDING OFFICER CBC WITH AUTO DIFFERENTIAL Routine 11/18/2024 6:35 AM MOTOR EQUIPMENT COMMANDING OFFICER EGFR Routine 11/18/2024 5:52 AM MOTOR EQUIPMENT COMMANDING OFFICER FOLATE Routine 11/18/2024 5:52 AM MOTOR EQUIPMENT COMMANDING OFFICER VITAMIN B12 Routine 11/18/2024 5:52 AM MOTOR EQUIPMENT COMMANDING OFFICER COMPREHENSIVE METABOLIC PANEL Routine 11/18/2024 5:52 AM MOTOR EQUIPMENT COMMANDING OFFICER POCT GLUCOSE DEVICE Routine 11/17/2024 8 :52 PM MOTOR EQUIPMENT COMMANDING OFFICER POCT GLUCOSE DEVICE Routine 11/17/2024 6 :05 PM MOTOR EQUIPMENT COMMANDING OFFICER POCT GLUCOSE DEVICE Routine 11/17/2024 1 :08 PM MOTOR EQUIPMENT COMMANDING OFFICER POCT GLUCOSE DEVICE Routine 11/17/2024 9 :20 AM MOTOR EQUIPMENT COMMANDING OFFICER EGFR Routine 11/17/2024 7:01 AM MOTOR EQUIPMENT COMMANDING OFFICER DIFFERENTIAL AUTO Routine 11/17/2024 7:0 1 AM MOTOR EQUIPMENT COMMANDING OFFICER COMPREHENSIVE METABOLIC PANEL Routine 11/17/2024 7:01 AM MOTOR EQUIPMENT COMMANDING OFFICER CBC WITH AUTO DIFFERENTIAL Routine 11/17/2024 7:01 AM MOTOR EQUIPMENT COMMANDING OFFICER POCT GLUCOSE DEVICE Routine 11/16/2024 7 :44 PM MOTOR EQUIPMENT COMMANDING OFFICER POCT GLUCOSE DEVICE Routine 11/16/2024 6 :33 PM MOTOR EQUIPMENT COMMANDING OFFICER POCT GLUCOSE DEVICE Routine 11/16/2024 1 1:54 AM MOTOR EQUIPMENT COMMANDING OFFICER HEMOGLOBIN A1C Routine 11/16/2024 9:56 AM MOTOR EQUIPMENT COMMANDING OFFICER EGFR Routine 11/16/2024 9:56 AM MOTOR EQUIPMENT COMMANDING OFFICER DIFFERENTIAL AUTO Routine 11/16/2024 9:5 6 AM MOTOR EQUIPMENT COMMANDING OFFICER COMPREHENSIVE METABOLIC PANEL Routine 11/16/2024 9:56 AM MOTOR EQUIPMENT COMMANDING OFFICER CBC WITH AUTO DIFFERENTIAL Routine 11/16/2024 9:56 AM MOTOR EQUIPMENT COMMANDING OFFICER POCT GLUCOSE DEVICE Routine 11/16/2024 8 :53 AM MOTOR EQUIPMENT COMMANDING OFFICER POCT GLUCOSE DEVICE Routine 11/16/2024 1 2:30 AM MOTOR EQUIPMENT COMMANDING OFFICER POCT GLUCOSE DEVICE Routine 11/15/2024 8 :35 PM MOTOR EQUIPMENT COMMANDING OFFICER POCT GLUCOSE DEVICE Routine 11/15/2024 5 :29 PM MOTOR EQUIPMENT COMMANDING OFFICER POCT GLUCOSE DEVICE Routine 11/15/2024 1 :28 PM MOTOR EQUIPMENT COMMANDING OFFICER POCT GLUCOSE DEVICE Routine 11/15/2024 8 :56 AM MOTOR EQUIPMENT COMMANDING OFFICER MAGNESIUM Routine 11/15/2024 4:35 AM MOTOR EQUIPMENT COMMANDING OFFICER EGFR Routine 11/15/2024 4:35 AM MOTOR EQUIPMENT COMMANDING OFFICER DIFFERENTIAL AUTO Routine 11/15/2024 4:3 5 AM MOTOR EQUIPMENT COMMANDING OFFICER PROTIME-INR Routine 11/15/2024 4:35 AM MOTOR EQUIPMENT COMMANDING OFFICER COMPREHENSIVE METABOLIC PANEL Routine 11/15/2024 4:35 AM MOTOR EQUIPMENT COMMANDING OFFICER CBC WITH AUTO DIFFERENTIAL Routine 11/15/2024 4:35 AM MOTOR EQUIPMENT COMMANDING OFFICER POCT GLUCOSE DEVICE Routine 11/14/2024 9 :28 PM MOTOR EQUIPMENT COMMANDING OFFICER POCT GLUCOSE DEVICE Routine 11/14/2024 5 :48 PM MOTOR EQUIPMENT COMMANDING OFFICER SODIUM, URINE, RANDOM Routine 11/14/2024 3:29 PM MOTOR EQUIPMENT COMMANDING OFFICER URINALYSIS AND REFLEX TO MICROSCOPIC AND CULTURE STAT 11/14/2024 3:28 PM MOTOR EQUIPMENT COMMANDING OFFICER AMMONIA Add-On 11/14/2024 2:16 PM MOTOR EQUIPMENT COMMANDING OFFICER POCT GLUCOSE DEVICE Routine 11/14/2024 1 1:21 AM MOTOR EQUIPMENT COMMANDING OFFICER POCT GLUCOSE DEVICE Routine 11/14/2024 8 :11 AM MOTOR EQUIPMENT COMMANDING OFFICER EGFR Routine 11/14/2024 5:03 AM MOTOR EQUIPMENT COMMANDING OFFICER DIFFERENTIAL AUTO Routine 11/14/2024 5:0 3 AM MOTOR EQUIPMENT COMMANDING OFFICER COMPREHENSIVE METABOLIC PANEL Routine 11/14/2024 5:03 AM MOTOR EQUIPMENT COMMANDING OFFICER CBC WITH AUTO DIFFERENTIAL Routine 11/14/2024 5:03 AM MOTOR EQUIPMENT COMMANDING OFFICER POCT GLUCOSE DEVICE Routine 11/14/2024 4 :41 AM MOTOR EQUIPMENT COMMANDING OFFICER POCT GLUCOSE DEVICE Routine 11/13/2024 7 :59 PM MOTOR EQUIPMENT COMMANDING OFFICER POCT GLUCOSE DEVICE Routine 11/13/2024 5 :16 PM MOTOR EQUIPMENT COMMANDING [employer]ICER CT KNEE LEFT WO CONTRAST IP Routine 11/13/2024 4:52 PM MOTOR EQUIPMENT COMMANDING OFFICER US CHEST IP Routine 11/13/2024 2:21 PM MOTOR EQUIPMENT COMMANDING OFFICER POCT GLUCOSE DEVICE Routine 11/13/2024 2 :13 PM MOTOR EQUIPMENT COMMANDING OFFICER FLUORO GUIDED ASPIRATION KNEE LEFT IP Routine 11/13/2024 1:30 PM MOT[employer] EQUIPMENT COMMANDING OFFICER EGFR Routine 11/13/2024 9:02 AM MOTOR EQUIPMENT COMMANDING OFFICER DIFFERENTIAL AUTO Routine 11/13/2024 9:0 2 AM MOTOR EQUIPMENT COMMANDING OFFICER COMPREHENSIVE METABOLIC PANEL Routine 11/13/2024 9:02 AM MOTOR EQUIPMENT COMMANDING OFFICER CBC WITH AUTO DIFFERENTIAL Routine 11/13/2024 9:02 AM MOTOR EQUIPMENT COMMANDING OFFICER MAGNESIUM Routine 11/13/2024 9:02 AM MOTOR EQUIPMENT COMMANDING OFFICER POCT GLUCOSE DEVICE Routine 11/13/2024 8 :00 AM MOTOR EQUIPMENT COMMANDING OFFICER STREP PNEUMONIAE AG, URINE Routine 11/13/2024 12:28 AM MOTOR EQUIPMENT COMMANDING OFFICER LEGIONELLA ANTIGEN, URINE Routine 11/13/2024 12:28 AM MOTOR EQUIPMENT COMMANDING OFFICER POCT GLUCOSE DEVICE Routine 11/12/2024 1 0:04 PM MOTOR EQUIPMENT COMMANDING OFFICER TRANSTHORACIC ECHO (TTE) COMPLETE W DOPPLER/CF WO CONTRAST Routine 11/12/2024 4:14 PM MOTOR EQUIPMENT COMMANDING OFFICER XR KNEE LEFT 1 OR 2 VIEWS IP Routine 11/12/2024 2:18 PM MOTOR EQUIPMENT COMMANDING OFFICER POCT GLUCOSE DEVICE Routine 11/12/2024 1 2:11 PM MOTOR EQUIPMENT COMMANDING OFFICER POCT GLUCOSE DEVICE Routine 11/12/2024 1 0:02 AM MOTOR EQUIPMENT COMMANDING OFFICER EGFR Routine 11/12/2024 8:29 AM MOTOR EQUIPMENT COMMANDING OFFICER DIFFERENTIAL AUTO Routine 11/12/2024 8:2 9 AM MOTOR EQUIPMENT COMMANDING OFFICER CBC WITH AUTO DIFFERENTIAL Routine 11/12/2024 8:29 AM MOTOR EQUIPMENT COMMANDING OFFICER COMPREHENSIVE METABOLIC PANEL Routine 11/12/2024 8:29 AM MOT[employer] EQUIPMENT COMMANDING OFFICER POCT GLUCOSE DEVICE Routine 11/12/2024 3 :01 AM MOTOR EQUIPMENT COMMANDING OFFICER BLOOD CULTURE STAT 11/11/2024 9:45 PM MOT[employer] EQUIPMENT COMMANDING OFFICER BLOOD CULTURE STAT 11/11/2024 9:45 PM MOTOR EQUIPMENT COMMANDING [employer]ICER CT CHEST ABDOMEN PELVIS WO CONTRAST ED 11/11/2024 8:07 PM MOT[employer] EQUIPMENT COMMANDING OFFICER XR CHEST 1 VIEW ED 11/11/2024 5:30 PM MOTOR EQUIPMENT COMMANDING OFFICER EGFR STAT 11/11/2024 5:10 PM MOTOR EQUIPMENT COMMANDING OFFICER DIFFERENTIAL AUTO STAT 11/11/2024 5:1 0 PM MOTOR EQUIPMENT COMMANDING OFFICER PRO B-TYPE NATRIURETIC PEPTIDE STAT 11/11/2024 5:10 PM MOTOR EQUIPMENT COMMANDING OFFICER SEPSIS LACTATE WITH REFLEX Routine 11/11/2024 5:10 PM MOTOR EQUIPMENT COMMANDING OFFICER COMPREHENSIVE METABOLIC PANEL STAT 11/11/2024 5:10 PM MOTOR EQUIPMENT COMMANDING OFFICER CBC WITH AUTO DIFFERENTIAL STAT 11/11/2024 5:10 PM MOTOR EQUIPMENT COMMANDING OFFICER CARDIOLOGY DOCUMENT SCAN Routine 11/01/2024 10:08 AM MOTOR EQUIPMENT COMMANDING OFFICER CARDIOLOGY DOCUMENT SCAN Routine 10/31/2024 9:21 AM MOTOR EQUIPMENT COMMANDING OFFICER POCT LIPID PANEL Routine 11/15/2023 2:47 PM MOTOR EQUIPMENT COMMANDING OFFICER Lipid screening from Last 3 Months or Most Recently Relevant to Health Maintenance Results * XR Tibia Fibula Left 2 View (12/26/2024 9:26 AM CDT) Anatomical Region Laterality Modality Lower Extremities, Lower Leg Left Com puted Radiography 12/30/2024 9:10 AM CDT Narrative 12/30/2024 9:16 AM CDT EXAM DESCRIPTION: XR TIBIA FIBULA LEFT 2 VIEWS REASON FOR STUDY: Left lower leg pain. Fx x 2 months, pain TECHNIQUE: AP and lateral radiographic view(s) of the left tibia and fibula (4 total images) . COMPARISON: Left knee from November 12, 2024 FINDINGS: BONES/JOINTS: Diffuse osteopenia. Old internally fixed left distal femur fracture. Slight deformity of the left medial tibial plateau is unchanged; however, there is mild increased sclerosis in the medial tibial plateau which likely relates to healing fracture. Otherwise, no acute bony abnormality. SOFT TISSUES: Arterial calcinosis. IMPRESSION: Slight deformity of left medial tibial plateau is unchanged; however, there is mild increased sclerosis in the medial tibial plateau which likely relates to healing fracture. Otherwise, no acute bony abnormality in left tibia and fibula. Diffuse osteopenia. THIS IS AN ELECTRONICALLY VERIFIED FINAL REPORT 12/30/2024 9:16 AM - Electronically signed by Stewart Greene M.D. RB: BECKI Report ID: [id number] Reading Location: [id number] Procedure Note Stewart Greene MD - 12/30/2024 EXAM DESCRIPTION: XR TIBIA FIBULA LEFT 2 VIEWS REASON FOR STUDY: Left lower leg pain. Fx x 2 months, pain TECHNIQUE: AP and lateral radiographic view(s) of the left tibia andfibula (4 total images) . COMPARISON: Left knee from November 12, 2024 FINDINGS: BONES/JOINTS: Diffuse osteopenia. Old internally fixed leftdistal femur fracture. Slight deformity of the left medial tibial plateau is unchanged; however, there is mild increased sclerosis in the medial tibial plateau which likely relates to healing fracture. Otherwise, no acutebony abnormality. SOFT TISSUES: Arterial calcinosis. IMPRESSION: Slight deformity of left medial tibial plateau is unchanged; however,there is mild increased sclerosis in the medial tibial plateau which likelyrelates to healing fracture. Otherwise, no acute bony abnormality in left tibia and fibula. Diffuse osteopenia. THIS IS AN ELECTRONICALLY VERIFIED FINAL REPORT 12/30/2024 9:16 AM - Electronically signed by Stewart Greene M.D. RB: BECKI Report ID: [id number] Reading Location: [id number] us Samara MEDEIROS IMG XR PROCEDURES Final Result * US SONIA (11/26/2024 2:32 PM MOTOR EQUIPMENT COMMANDING OFFICER) Anatomical Region Laterality Modality Vascular N/A Ultrasound 11/26/2024 12:3 5 PM MOTOR EQUIPMENT COMMANDING OFFICER Narrative 11/27/2024 9:12 AM MOTOR EQUIPMENT COMMANDING OFFICER Vascular & Vein Surgery [facility] [place] [address] Lower Extremity Arterial Doppler Report Patient Name: LOU ISLASCameron : 1955 Study Date: 11/26/2024 12:35:00 PM Gender: F Power Builder Developer: Maira Gonzalez RVT Location: [facility] Provider: LEXIE RUCKER Quality: Adequate Order Provider: LEXIE RUCKER PROCEDURES: Arterial Report: Ankle - Brachial Index Doppler exam. INDICATIONS: BLE wounds with varicose veins. HISTORY: Hypertension. Hyperlipidemia. Diabetic. CHF. Former smoker. COMPARISONS: No previous exams. MEASUREMENTS: Right Value Left Value Rt Brachial Pressure 104 mmHg Lt Brachial Pressure 111 mmHg Rt CNC MACHINE OPERATOR Pressure >220 mmHg Lt CNC MACHINE OPERATOR Pressure >220 mmHg Rt DPA Pressure 196 mmHg Lt DPA Pressure 121 mmHg Rt 1st Digit Pressure 106 mmHg Lt PT SONIA Resting >1.99 Rt PT SONIA Resting >1.99 Lt DP SONIA Resting 1.09 Rt DP SONIA Resting 1.77 Rt Digit 1/Arm Index 0.95 FINDINGS: Right Posterior Tibial Artery Analysis: The posterior tibial waveform is triphasic. Right Anterior Tibial Artery Analysis: The anterior tibial waveform is triphasic. Right Digits: Normal right digit pressure and waveform. Left Posterior Tibial Artery Analysis: The posterior tibial waveform is triphasic. Left Anterior Tibial Artery Analysis: The anterior tibial waveform is triphasic. Left Digits: Unable to obtain toe pressure due to patient movement, attempted 3 times. Waveform symmetric to right digit. Comments: Technically difficult patient, exam done with patient in wheelchair. CONCLUSIONS: 1. Ankle-brachial index of >1.3 is non-compressible which is consistent with arterial calcifications, thus the ankle/brachial index is not obtainable in the bilateral lower extremities. ATTESTATION: I have reviewed and interpreted the pertinent images and measurements of this study. I attest to the conclusions in the final report that is provided above. Electronically Signed By: Lexie Rucker MD 11/27/2024 8:47:23 AM MOTOR EQUIPMENT COMMANDING OFFICER Procedure Note Lexie Rucker MD - 11/27/2024 Vascular & Vein Surgery [address] [facility] [place] [address] Lower Extremity Arterial Doppler Report Patient Name: LOU ISLAS B : 1955 Study Date: 11/26/2024 12:35:00 PM Gender: F Power Builder Developer: Maira Gonzalez RVT Location: [facility] Ref Provider: LEXIE RUCKER Quality: Adequate Order Provider: LEXIE RUCKER PROCEDURES: Arterial Report: Ankle - Brachial Index Doppler exam. INDICATIONS: BLE wounds with varicose veins. HISTORY: Hypertension. Hyperlipidemia. Diabetic. CHF. Former smoker. COMPARISONS: No previous exams. MEASUREMENTS: Right Value Left Value Rt Brachial Pressure 104 mmHg Lt Brachial Pressure 111 mmHg Rt CNC MACHINE OPERATOR Pressure >220 mmHg Lt CNC MACHINE OPERATOR Pressure >220 mmHg Rt DPA Pressure 196 mmHg Lt DPA Pressure 121 mmHg Rt 1st Digit Pressure 106 mmHg Lt PT SONIA Resting >1.99 Rt PT SONIA Resting >1.99 Lt DP SONIA Resting 1.09 Rt DP SONIA Resting 1.77 Rt Digit 1/Arm Index 0.95 FINDINGS: Right Posterior Tibial Artery Analysis: The posterior tibial waveform is triphasic. Right Anterior Tibial Artery Analysis: The anterior tibial waveform is triphasic. Right Digits: Normal right digit pressure and waveform. Left Posterior Tibial Artery Analysis: The posterior tibial waveform is triphasic. Left Anterior Tibial Artery Analysis: The anterior tibial waveform is triphasic. Left Digits: Unable to obtain toe pressure due to patient movement, attempted 3 times.Waveform symmetric to right digit. Comments: Technically difficult patient, exam done with patient in wheelchair. CONCLUSIONS: 1. Ankle-brachial index of >1.3 is non-compressible which is consistentwith arterial calcifications, thus the ankle/brachial index is not obtainable in thebilateral lower extremities. ATTESTATION: I have reviewed and interpreted the pertinent images and measurements ofthis study. I attest to the conclusions in the final report that is provided above. Electronically Signed By: Lexie Rucker MD 11/27/2024 8:47:23 AM MOTOR EQUIPMENT COMMANDING OFFICER us Lexie Rucker MD IMG US PROCEDURES Final Result * US Venous Reflux Bilateral (11/26/2024 2:32 PM MOTOR EQUIPMENT COMMANDING OFFICER) Anatomical Region Laterality Modality Vascular Bilateral Ultrasound 11/26/2024 12:5 9 PM MOTOR EQUIPMENT COMMANDING OFFICER Narrative 11/27/2024 9:12 AM MOTOR EQUIPMENT COMMANDING OFFICER Vascular & Vein Surgery [address] [place] [address] Lower Extremity Venous Reflux Duplex Report Patient Name: LOU ISLAS B : 1955 (69y 7m) Study Date: 11/26/2024 12:59:40 PM Gender: F Power Builder Developer: Location: [facility] Ref Provider: LEXIE RUCKER Quality: Adequate Order Provider: LEXIE RUCKER PROCEDURES: Vascular Report: Lower extremity venous valvular insufficiency or reflux evaluation is performed with manual augmentation. Veins evaluated are sapheno-femoral junction, great saphenous, common femoral, femoral, profunda femoral, popliteal, sapheno-popliteal and small saphenous veins bilaterally. Criteria for superficial vein reflux is retrograde blood flow greater than 0.5 seconds in the standing position. INDICATIONS: HISTORY: Hypertension. Hyperlipidemia. Diabetic. CHF. Former smoker. COMPARISONS: The previous exam was completed on 10/21/23. MEASUREMENTS: Right Value Left Value Rt Sapheno-Femoral Junction 8.84 mm Lt Sapheno-Femoral Junction 7.12 mm Rt Great Saphenous Thigh - Proximal 5.28 mm Lt Great Saphenous Thigh - Proximal 4.36 mm Rt Great Saphenous Knee 4.64 mm Lt Great Saphenous Calf - Proximal 3.54 mm Rt Great Saphenous Calf - Proximal 2.51 mm Lt Sapheno-Popliteal Junction mm Rt Sapheno-Popliteal Junction 4.65 mm Lt Small Saphenous Proximal 7.04 mm Rt Small Saphenous Proximal 5.53 mm Lt Small Saphenous Mid 3.85 mm Rt Small Saphenous Mid 5.39 mm Lt Anterior Accessory Proximal 5.32 mm Rt Anterior Accessory Proximal mm Lt Anterior Accessory Mid mm Rt Anterior Accessory Mid mm Lt CFV Reflux Time 0.00 sec Rt CFV Reflux Time 0.00 sec Lt SFJ Reflux Time 4.92 sec Rt SFJ Reflux Time 2.03 sec Lt GSV Thigh Reflux Time 0.00 sec Rt GSV Thigh Reflux Time 0.00 sec Lt FV Mid Reflux Time 0.00 sec Rt FV Mid Reflux Time 0.00 sec Lt GSV Calf Prx Reflux 0.31 sec Rt GSV Knee Reflux Time 0.00 sec Lt Popliteal Reflux Time 0.00 sec Rt GSV Calf Prx Reflux 0.00 sec Lt SSV Prx Reflux 0.71 sec Rt Popliteal Reflux Time 0.00 sec Lt SSV Mid Reflux 0.27 sec Rt SPJ Reflux Time 0.00 sec Lt AAGSV Reflux Time 0.00 sec Rt SSV Prx Reflux 0.51 sec Rt SSV Mid Reflux 1.46 sec Right Value Left Value FINDINGS: Patient positioning: Technically difficult exam: Patient done in wheelchair due to not being able to move to the bed (recent leg fracture with brace, also on enedina pad). Right: The common femoral, femoral, popliteal, and calf veins were evaluated with compression maneuvers. No evidence of deep vein thrombus by duplex. Pulsatile flow noted at common femoral vein. No evidence of superficial vein thrombus on the right. On the right venous reflux noted in sapheno-femoral junction and small saphenous vein. Foster Care Therapist vein noted at distal posterior medial calf, 3.5 mm, 0.68 second reflux. Great sapehenous vein splits mid thigh with multiple branches. Left: The common femoral, femoral, popliteal, and calf veins were evaluated with compression maneuvers. No evidence of deep vein thrombus by duplex. Pulsatile flow noted at common femoral vein. No evidence of superficial vein thrombus on the left. On the left venous reflux noted in sapheno-femoral junction and small saphenous vein. Great saphenous becomes small and tortuous at mid thigh. Accessory saphenous vein noted branching from anterior accessory saphenous vein with reflux time 1.57 seconds, 3.7 mm in diameter, joins great saphenous below knee. Small saphenous vein continues up posterior thigh, but also has resting retrograde flow at saphenopopliteal junction. Comments: Limited study due to patient`s inability to properly position. Difficult compression maneuvers in bilateral groins. CONCLUSIONS: Right GSV: Hemodynamically significant reflux in the right saphenofemoral junction. Right SSV: Hemodynamically significant reflux in the right small saphenous vein in the calf. Left GSV: Hemodynamically significant reflux in the left saphenofemoral junction. Left SSV: Hemodynamically significant reflux in the left saphenopopliteal junction. ATTESTATION: I have reviewed and interpreted the pertinent images and measurements of this study. I attest to the conclusions in the final report that is provided above. Electronically Signed By: Lexie Rucker MD 11/27/2024 8:47:00 AM MOTOR EQUIPMENT COMMANDING OFFICER Procedure Note Lexie Rucker MD - 11/27/2024 Vascular & Vein Surgery [facility] [place] [address] Lower Extremity Venous Reflux Duplex Report Patient Name: LOU ISLAS B : 1955 (69y 7m) Study Date: 11/26/2024 12:59:40 PM Gender: F Power Builder Developer: NIEVES Location: [facility] Ref Provider: LEXIE RUCKER Quality: Adequate Order Provider: LEXIE RUCKER PROCEDURES: Vascular Report: Lower extremity venous valvular insufficiency or reflux evaluation isperformed with manual augmentation. Veins evaluated are sapheno-femoral junction, great saphenous, commonfemoral, femoral, profunda femoral, popliteal, sapheno-popliteal and small saphenous veinsbilaterally. Criteria for superficial vein reflux is retrograde blood flow greater than0.5 seconds in the standing position. INDICATIONS: HISTORY: Hypertension. Hyperlipidemia. Diabetic. CHF. Former smoker. COMPARISONS: The previous exam was completed on 10/21/23. MEASUREMENTS: Right Value Left Value Rt Sapheno-Femoral Junction 8.84 mm Lt Sapheno-Femoral Junction 7.12 mm Rt Great Saphenous Thigh - Proximal 5.28 mm Lt Great Saphenous Thigh -Proximal 4.36 mm Rt Great Saphenous Knee 4.64 mm Lt Great Saphenous Calf - Proximal 3.54mm Rt Great Saphenous Calf - Proximal 2.51 mm Lt Sapheno-Popliteal Junctionmm Rt Sapheno-Popliteal Junction 4.65 mm Lt Small Saphenous Proximal 7.04mm Rt Small Saphenous Proximal 5.53 mm Lt Small Saphenous Mid 3.85 mm Rt Small Saphenous Mid 5.39 mm Lt Anterior Accessory Proximal 5.32 mm Rt Anterior Accessory Proximal mm Lt Anterior Accessory Mid mm Rt Anterior Accessory Mid mm Lt CFV Reflux Time 0.00 sec Rt CFV Reflux Time 0.00 sec Lt SFJ Reflux Time 4.92 sec Rt SFJ Reflux Time 2.03 sec Lt GSV Thigh Reflux Time 0.00 sec Rt GSV Thigh Reflux Time 0.00 sec Lt FV Mid Reflux Time 0.00 sec Rt FV Mid Reflux Time 0.00 sec Lt GSV Calf Prx Reflux 0.31 sec Rt GSV Knee Reflux Time 0.00 sec Lt Popliteal Reflux Time 0.00 sec Rt GSV Calf Prx Reflux 0.00 sec Lt SSV Prx Reflux 0.71 sec Rt Popliteal Reflux Time 0.00 sec Lt SSV Mid Reflux 0.27 sec Rt SPJ Reflux Time 0.00 sec Lt AAGSV Reflux Time 0.00 sec Rt SSV Prx Reflux 0.51 sec Rt SSV Mid Reflux 1.46 sec Right Value Left Value FINDINGS: Patient positioning: Technically difficult exam: Patient done in wheelchair due to not beingable to move to the bed (recent leg fracture with brace, also on enedina pad). Right: The common femoral, femoral, popliteal, and calf veins were evaluated withcompression maneuvers. No evidence of deep vein thrombus by duplex. Pulsatile flownoted at common femoral vein. No evidence of superficial vein thrombus on the right. Onthe right venous reflux noted in sapheno-femoral junction and small saphenous vein.Foster Care Therapist vein noted at distal posterior medial calf, 3.5 mm, 0.68 second reflux. Greatsapehenous vein splits mid thigh with multiple branches. Left: The common femoral, femoral, popliteal, and calf veins were evaluated withcompression maneuvers. No evidence of deep vein thrombus by duplex. Pulsatile flownoted at common femoral vein. No evidence of superficial vein thrombus on the left. On theleft venous reflux noted in sapheno-femoral junction and small saphenous vein. Greatsaphenous becomes small and tortuous at mid thigh. Accessory saphenous vein notedbranching from anterior accessory saphenous vein with reflux time 1.57 seconds, 3.7 mm indiameter, joins great saphenous below knee. Small saphenous vein continues upposterior thigh, but also has resting retrograde flow at saphenopopliteal junction. Comments: Limited study due to patient`s inability to properly position. Difficultcompression maneuvers in bilateral groins. CONCLUSIONS: Right GSV: Hemodynamically significant reflux in the right saphenofemoraljunction. Right SSV: Hemodynamically significant reflux in the right small saphenousvein in the calf. Left GSV: Hemodynamically significant reflux in the left saphenofemoraljunction. Left SSV: Hemodynamically significant reflux in the left saphenopoplitealjunction. ATTESTATION: I have reviewed and interpreted the pertinent images and measurements ofthis study. I attest to the conclusions in the final report that is provided above. Electronically Signed By: Lexie Rucker MD 11/27/2024 8:47:00 AM MOTOR EQUIPMENT COMMANDING OFFICER us Lexie Rucker MD IMG US PROCEDURES Final Result * POCT glucose (11/20/2024 5:57 PM MOTOR EQUIPMENT COMMANDING OFFICER) Glucose, POC 175 70 - 199 mg/dL Comment:Testing performed by : [address] [address] Blood 11/20/2024 5:57 PM MOTOR EQUIPMENT COMMANDING OFFICER 11/20/2024 5:57 PM MOTOR EQUIPMENT COMMANDING OFFICER us Joe Herron MD LAB POCT ORDERABLES - DEVICE Final Result DAY[facility] [address] [facility] Department [place] [address] * POCT glucose (11/20/2024 12:28 PM MOTOR EQUIPMENT COMMANDING OFFICER) Glucose, POC 186 70 - 199 mg/dL Comment:Testing performed by : [address] [address] Glucose comment 1 Use This Result DAYANA Comment:Testing performed by : [address] [address] Glucose comment 2 RN/MD Notified DAYANA Comment:Testing performed by : [address] [address] Blood 11/20/2024 12:2 8 PM MOTOR EQUIPMENT COMMANDING OFFICER 11/20/2024 12:28 PM MOTOR EQUIPMENT COMMANDING OFFICER us Joe Herron MD LAB POCT ORDERABLES - DEVICE Final Result Performing Organization Address [facility] Co de Phone Number DAYANA [address] [place] [address] * POCT glucose (11/20/2024 8:57 AM MOTOR EQUIPMENT COMMANDING OFFICER) Glucose, POC 157 70 - 199 mg/dL Comment:Testing performed by : [address] [address] Glucose comment 1 Use This Result DAYANA CARPIO Comment:Testing performed by : [address] [address] Glucose comment 2 RN/MD Notified DAYANA CARPIO Comment:Testing performed by : [address] [address] Blood 11/20/2024 8:57 AM MOTOR EQUIPMENT COMMANDING OFFICER 11/20/2024 8:57 AM MOTOR EQUIPMENT COMMANDING OFFICER Joe Herron MD LAB POCT ORDERABLES - DEVICE Final Result Performing Organization Address [facility] Co de Phone Number DAYANA [address] [place] [address] * (ABNORMAL) eGFR (11/20/2024 5:33 AM MOTOR EQUIPMENT COMMANDING OFFICER) eGFR 24(L) >=60 mL/min/1. 73 m2 Comment: Interpretive Data Reference Interval Normal >/= 90 mL/min/1.73m2 Mildly decreased* 60 - 89 mL/min/1.73m2 Mildly to moderately decreased 45 - 59 mL/min/1.73m2 Moderately to severely decreased 30 - 44 mL/min/1.73m2 Severely decreased 15 - 29 mL/min/1.73m2 Kidney Failure < 15 mL/min/1.73m2 *Relative to young adult level Estimated glomerular filtration rate is determined by the 2020 CKD-EPI equation recommended by the National Kid[employer] Foundation (A Unifying Approach to GFR Estimation: Recommendations of the NKF-ASK Task Force on Reassessing the Inclusion of Race in Diagnosing Kidney Disease, JASN 2020). The CKD-EPI equation should not be used for patients with unstable renal function and has not been validated in children and those over 70. Current interpretive data was last reviewed 2021. Testing performed by: [address] [address] Blood 11/20/2024 5:33 AM MOTOR EQUIPMENT COMMANDING OFFICER 11/20/2024 5:56 AM MOTOR EQUIPMENT COMMANDING OFFICER us Ivan Vargas MD LAB BLOOD ORDERABLES Final Re sult [facility] [address] [facility] Department of Laboratories [place], [place] [id number] * (ABNORMAL) Differential, auto (11/20/2024 5:33 AM MOTOR EQUIPMENT COMMANDING OFFICER) Neutrophil abs 3.7 1.5 - 6.5 K/cumm Comment:Testing performed by : [address] [address] Imm gran abs 0.1 0.0 - 0.1 K/cumm DAYANA Comment:Testing performed by : [address] [address] Lymphocyte abs 1.1 0.8 - 3.3 K/cumm DAYANA Comment:Testing performed by : [address] [address] Monocyte abs 1.0(H) 0.2 - 0.8 K/cumm DAYANA Comment:Testing performed by : [address] [address] Eosinophil abs 0.8(H) 0.0 - 0.5 K/cumm DAYANA Comment:Testing performed by : [address] [address] Basophil abs 0.1 0.0 - 0.1 K/cumm DAYANA Comment:Testing performed by : [address] [address] Neutrophil pct 55.1 % DAYANA Comment: Interpretive Data Percent cell count reference ranges are not reported, since discordance with absolute values may lead to misinterpretation of CBC data. Current Interpretive Data was last revised on 2018. Testing performed by: [address] [address] Imm gran pct 1.2 % [facility] Comment: Interpretive Data Percent cell count reference ranges are not reported, since discordance with absolute values may lead to misinterpretation of CBC data. Current Interpretive Data was last revised on 2018. Testing performed by: [address] [address] Lymphocyte pct 16.2 % [facility] Comment: Interpretive Data Percent cell count reference ranges are not reported, since discordance with absolute values may lead to misinterpretation of CBC data. Current Interpretive Data was last revised on 2018. Testing performed by: [address] [address] Monocyte pct 14.3 % [facility] Comment: Interpretive Data Percent cell count reference ranges are not reported, since discordance with absolute values may lead to misinterpretation of CBC data. Current Interpretive Data was last revised on 2018. Testing performed by: [address] [address] Eosinophil pct 12.3 % [facility] Comment: Interpretive Data Percent cell count reference ranges are not reported, since discordance with absolute values may lead to misinterpretation of CBC data. Current Interpretive Data was last revised on 2018. Testing performed by: [address] [address] Basophil pct 0.9 % [facility] Comment: Interpretive Data Percent cell count reference ranges are not reported, since discordance with absolute values may lead to misinterpretation of CBC data. Current Interpretive Data was last revised on 2018. Testing performed by: [address] [address] Blood 11/20/2024 5:33 AM MOTOR EQUIPMENT COMMANDING OFFICER 11/20/2024 5:56 AM MOTOR EQUIPMENT COMMANDING OFFICER us Ivan Vargas MD LAB BLOOD ORDERABLES Final Re sult [facility] [address] [place] [address] Department [place] [address] * (ABNORMAL) CBC with auto differential (11/20/2024 5:33 AM MOTOR EQUIPMENT COMMANDING OFFICER) [facility] WBC 6.7 3.8 - 9.9 K/cumm Comment:Testing performed by : [address] [address] Hgb 9.2(L) 11.9 - 15.5 g/dL DAYANA Comment:Testing performed by : [address], [address] Hct 29.0(L) 35.6 - 45.5 % DAAYNA Comment:Testing performed by : [address], [address] Plt 275 150 - 400 K/cumm DAYANA Comment:Testing performed by : [address] [address] MPV 11.0 9.1 - 12.3 fL DAYANA Comment:Testing performed by : [address], [address] RBC 2.80(L) 3.90 - 5.20 M/cumm DAYANA Comment:Testing performed by : [address] [address] MCV 103.6(H) 81.3 - 96.4 fL DAYANA Comment:Testing performed by : [address] [address] MCH 32.9 27.1 - 33.3 pg DAYANA Comment:Testing performed by : [address], [address] MCHC 31.7(L) 32.3 - 35.7 g/dL DAYANA Comment:Testing performed by : [address], [address] RDW CV 16.5(H) 11.1 - 14.9 % DAYANA Comment:Testing performed by : [address], [address] RDW SD 62.3(H) 35.7 - 48.1 fL DAYANA Comment:Testing performed by : [address] [address] NRBC abs 0.00 0.00 - 0.01 K/cumm DAYANA Comment:Testing performed by : [address] [address] Blood 11/20/2024 5:33 AM MOTOR EQUIPMENT COMMANDING OFFICER 11/20/2024 5:56 AM MOTOR EQUIPMENT COMMANDING OFFICER us Ivan Vargas MD LAB BLOOD ORDERABLES Final Re sult [facility] [address] [facility] Department [place] [address] * (ABNORMAL) Comprehensive metabolic panel (11/20/2024 5:33 AM MOTOR EQUIPMENT COMMANDING OFFICER) Sodium 134(L) 135 - 145 mmol/L Comment:Testing performed by : [address] [address] Potassium, pl 3.8 3.3 - 4.9 mmol/L DAYANA Comment:Testing performed by : [address] [address] Chloride 91(L) 97 - 110 mmol/L DAYANA Comment:Testing performed by : [address] [address] CO2 26 22 - 32 mmol/L DAYANA Comment:Testing performed by : [address] [address] Anion gap 17(H) 2 - 15 mmol/L DAYANA Comment:Testing performed by : [address] [address] BUN 51(H) 6 - 25 mg/dL DAYANA Comment:Testing performed by : [address] [address] Creatinine 2.20(H) 0.60 - 1.10 mg/dL DAYANA Comment:Testing performed by : [address] [address] Glucose 149 70 - 199 mg/dL DAYANA Comment: Interpretive Data Fasting glucose >/= 126 mg/dl is diagnostic for diabetes. Fasting is defined as no caloric intake for at least 8 hours. Fasting glucose between 100 mg/dl to 125 mg/dl is diagnostic of prediabetes. In a patient with classic symptoms of hyperglycemia or hyperglycemic crisis, a random glucose >/= 200 mg/dl is diagnostic for diabetes. In the absence of unequivocal hyperglycemia, results should be confirmed by repeat testing. The classification and Diagnosis of Diabetes Diabetes Care 2021; 46: S19-S40. Current interpretive data was last revised 2022. Testing performed by: [address] [address] Calcium 10.3 8.5 - 10.3 mg/dL DAYANA Comment:Testing performed by : [address] [address] Bilirubin, total 1.3(H) 0.1 - 1.2 mg/dL DAYANA Comment:Testing performed by : [address] [address] Protein, pl 6.6 6.5 - 8.5 g/dL DAYANA Comment:Testing performed by : [address] [address] Albumin 3.8 3.5 - 5.0 g/dL DAYANA Comment:Testing performed by : [address] [address] Alk phos 391(H) 40 - 130 Units/L DAYANA Comment:Testing performed by : [address] [address] ALT 15 7 - 45 Units/L DAYANA Comment:Testing performed by : [address] [address] AST 29 10 - 45 Units/L DAYANA Comment:Testing performed by : [address] [address] Blood 11/20/2024 5:33 AM [employer] 11/20/2024 5:56 AM [employer] COMMANDING OFF[employer]ER us Ivan Vargas MD LAB BLOOD ORDERABLES Final Re sult [facility] [place] [address] * (ABNORMAL) POCT glucose (11/19/2024 8:57 PM [employer]ING OFFICER) Glucose, POC 254(H) 70 - 199 mg/dL Comment:Testing performed by : [address] [address] Glucose comment 1 Use This Result DAYANA Comment:Testing performed by : [address] [address] Blood 11/19/2024 8:57 PM [employer] COMMANDING OFFICER 11/19/2024 8:57 PM [employer] COMMANDING OFFICER us Joe Herron MD LAB POCT ORDERABLES - DEVICE Final Result Performing Organization Address [facility] Co de Phone Number [address] [address] * (ABNORMAL) POCT glucose (11/19/2024 5:10 PM [employer] E[employer] COMMANDING OFFICER) Glucose, POC 225(H) 70 - 199 mg/dL Comment:Testing performed by : [address] [address] Blood 11/19/2024 5:10 PM [employer] COMMANDING OFFICER 11/19/2024 5:10 PM [employer] COMMANDING OFFICER us Joe Herron MD LAB POCT ORDERABLES - DEVICE Final Result Performing Organization Address City/[facility] Co de Phone Number [address] [address] * POCT glucose (11/19/2024 12:24 PM [employer] COMMANDING OFFICER) Glucose, POC 191 70 - 199 mg/dL Comment:Testing performed by : [address] [address] Blood 11/19/2024 12:2 4 PM [employer] COMMANDING OFFICER 11/19/2024 12:24 PM [employer] COMMANDING OFFICER Joe Herron MD LAB POCT ORDERABLES - DEVICE Final Result Performing Organization Address [facility] de Phone Number DAYANA [address] [place] [address] * POCT glucose (11/19/2024 11:36 AM [employer] COMMANDING OFFICER) Glucose, POC 181 70 - 199 mg/dL Comment:Testing performed by : [address] [address] Blood 11/19/2024 11:3 6 AM [employer]ING OFFICER 11/19/2024 11:36 AM [employer] E[employer] COMMANDING OFFICER Joe Herron MD LAB POCT ORDERABLES - DEVICE Final Result Performing Organization Address [facility] de Phone Number MARY ALICE[address] [address] * POCT glucose (11/19/2024 8:22 AM [employer] COMMANDING OFFICER) Glucose, POC 163 70 - 199 mg/dL Comment:Testing performed by : [address] [address] Glucose comment 1 Use This Result DAYANA Comment:Testing performed by : [address] [address] Blood 11/19/2024 8:22 AM [employer] COMMANDING OFFICER 11/19/2024 8:22 AM [employer] COMMANDING OFFICER Joe Herron MD LAB POCT ORDERABLES - DEVICE Final Result Performing Organization Address [facility] de Phone Number MARY ALICE[address] [address] * (ABNORMAL) eGFR (11/19/2024 6:23 AM [employer] COMMANDING OFFICER) eGFR 28(L) >=60 mL/min/1. 73 m2 Comment: Interpretive Data Reference Interval Normal >/= 90 mL/min/1.73m2 Mildly decreased* 60 - 89 mL/min/1.73m2 Mildly to moderately decreased 45 - 59 mL/min/1.73m2 Moderately to severely decreased 30 - 44 mL/min/1.73m2 Severely decreased 15 - 29 mL/min/1.73m2 Kidney Failure < 15 mL/min/1.73m2 *Relative to young adult level Estimated glomerular filtration rate is determined by the 2020 CKD-EPI equation recommended by the National [employer] (A Unifying Approach to GFR Estimation: Recommendations of the NKF-ASK Task Force on Reassessing the Inclusion of Race in Diagnosing Kidney Disease, JASN 2020). The CKD-EPI equation should not be used for patients with unstable renal function and has not been validated in children and those over 70. Current interpretive data was last reviewed 2021. Testing performed by: [address] [address] Blood 11/19/2024 6:23 AM [employer]ING OFFICER 11/19/2024 6:31 AM [employer] COMMANDING OFFICER us Ivan Vargas MD LAB BLOOD ORDERABLES Final Re sult [facility] [address] [facility] Department [place] [address] * (ABNORMAL) Differential, auto (11/19/2024 6:23 AM [employer] COMMANDING OFFICER) Neutrophil abs 3.7 1.5 - 6.5 K/cumm Comment:Testing performed by : [address] [address] Imm gran abs 0.1 0.0 - 0.1 K/cumm DAYANA Comment:Testing performed by : [address] [address] Lymphocyte abs 1.1 0.8 - 3.3 K/cumm DAYANA Comment:Testing performed by : [address] [address] Monocyte abs 1.0(H) 0.2 - 0.8 K/cumm DAYANA Comment:Testing performed by : [address] [address] Eosinophil abs 1.1(H) 0.0 - 0.5 K/cumm [facility] Comment:Testing performed by : [address] [address] Basophil abs 0.1 0.0 - 0.1 K/cumm [facility] Comment:Testing performed by : [address] [address] Neutrophil pct 52.7 % [facility] Comment: Interpretive Data Percent cell count reference ranges are not reported, since discordance with absolute values may lead to misinterpretation of CBC data. Current Interpretive Data was last revised on 2018. Testing performed by: [address] [address] Imm gran pct 1.1 % [facility] Comment: Interpretive Data Percent cell count reference ranges are not reported, since discordance with absolute values may lead to misinterpretation of CBC data. Current Interpretive Data was last revised on 2018. Testing performed by: [address] [address] Lymphocyte pct 15.8 % [facility] Comment: Interpretive Data Percent cell count reference ranges are not reported, since discordance with absolute values may lead to misinterpretation of CBC data. Current Interpretive Data was last revised on 2018. Testing performed by: [address] [address] Monocyte pct 14.2 % [facility] Comment: Interpretive Data Percent cell count reference ranges are not reported, since discordance with absolute values may lead to misinterpretation of CBC data. Current Interpretive Data was last revised on 2018. Testing performed by: [address] [address] Eosinophil pct 15.2 % [facility] Comment: Interpretive Data Percent cell count reference ranges are not reported, since discordance with absolute values may lead to misinterpretation of CBC data. Current Interpretive Data was last revised on 2018. Testing performed by: [address] [address] Basophil pct 1.0 % [facility] Comment: Interpretive Data Percent cell count reference ranges are not reported, since discordance with absolute values may lead to misinterpretation of CBC data. Current Interpretive Data was last revised on 2018. Testing performed by: [address] [address] Blood 11/19/2024 6:23 AM [employer]ING OFFICER 11/19/2024 6:31 AM [employer] COMMANDING OFFICER us Ivan Vargas MD LAB BLOOD ORDERABLES Final [facility] [address] [facility] Department [place] [address] * (ABNORMAL) CBC with auto differential (11/19/2024 6:23 AM [employer]ING OFFICER) WBC 7.0 3.8 - 9.9 K/cumm Comment:Testing performed by : [address] [address] Hgb 8.9(L) 11.9 - 15.5 g/dL DAYANA Comment:Testing performed by : [address] [address] Hct 28.1(L) 35.6 - 45.5 % DAYANA Comment:Testing performed by : [address] [address] Plt 268 150 - 400 K/cumm DAYANA Comment:Testing performed by : [address] [address] MPV 11.2 9.1 - 12.3 fL DAYANA Comment:Testing performed by : [address] [address] RBC 2.75(L) 3.90 - 5.20 M/cumm DAYANA Comment:Testing performed by : [address] [address] MCV 102.2(H) 81.3 - 96.4 fL DAYANA Comment:Testing performed by : [address] [address] MCH 32.4 27.1 - 33.3 pg DAYANA Comment:Testing performed by : [address] [place] [address] MCHC 31.7(L) 32.3 - 35.7 g/dL DAYANA CARPIO Comment:Testing performed by : [address] [address] RDW CV 16.5(H) 11.1 - 14.9 % DAYANA CARPIO Comment:Testing performed by : [address] [address] RDW SD 60.4(H) 35.7 - 48.1 fL DAYANA Comment:Testing performed by : [address] [address] NRBC abs 0.00 0.00 - 0.01 K/cumm DAYANA Comment:Testing performed by : [address] [address] Blood 11/19/2024 6:23 AM [employer]ING OFFICER 11/19/2024 6:31 AM [employer]ING OFFICER Ivan Vargas MD LAB BLOOD ORDERABLES Final Re sult Performing Organization Address [facility] Co de Phone Number [facility] [address] [facility] [place] [address] * Ammonia (11/19/2024 6:23 AM [employer] COMMANDING OFFICER) Ammonia 24 <=50 mcmol/L Comment: Please note on 02/21/2024 the unit of measure changed from mcg/dL to mcmol/L. Current Interpretive Data was last revised on 2024. Testing performed by: [address] [address] Blood 11/19/2024 6:23 AM [employer] COMMANDING OFFICER 11/19/2024 6:27 AM [employer] COMMANDING OFFICER Ivan Vargas MD LAB BLOOD ORDERABLES Final Re sult Performing Organization Address City/[facility] Co de Phone Number [facility] [address] [facility] [place] [address] * (ABNORMAL) Comprehensive metabolic panel (11/19/2024 6:23 AM [employer] COMMANDING OFFICER) Sodium 133(L) 135 - 145 mmol/L Comment:Testing performed by : [address] [address] Potassium, pl 3.6 3.3 - 4.9 mmol/L [facility] Comment:Testing performed by : [address] [address] Chloride 92(L) 97 - 110 mmol/L [facility] Comment:Testing performed by : [address] [address] CO2 27 22 - 32 mmol/L [facility] Comment:Testing performed by : [address] [address] Anion gap 14 2 - 15 mmol/L [facility] Comment:Testing performed by : [address] [address] BUN 46(H) 6 - 25 mg/dL [facility] Comment:Testing performed by : [address] [address] Creatinine 1.90(H) 0.60 - 1.10 mg/dL [facility] Comment:Testing performed by : [address] [address] Glucose 151 70 - 199 mg/dL [facility] Comment: Interpretive Data Fasting glucose >/= 126 mg/dl is diagnostic for diabetes. Fasting is defined as no caloric intake for at least 8 hours. Fasting glucose between 100 mg/dl to 125 mg/dl is diagnostic of prediabetes. In a patient with classic symptoms of hyperglycemia or hyperglycemic crisis, a random glucose >/= 200 mg/dl is diagnostic for diabetes. In the absence of unequivocal hyperglycemia, results should be confirmed by repeat testing. The classification and Diagnosis of Diabetes Diabetes Care 202; 46: S19-S40. Current interpretive data was last revised 2022. Testing performed by: [address] [address] Calcium 10.2 8.5 - 10.3 mg/dL [facility] Comment:Testing performed by : [address] [address] Bilirubin, total 1.4(H) 0.1 - 1.2 mg/dL DAYANA Comment:Testing performed by : [address] [address] Protein, pl 6.3(L) 6.5 - 8.5 g/dL DAYANA Comment:Testing performed by : [address], [place]., [address] Albumin 3.6 3.5 - 5.0 g/dL DAYANA Comment:Testing performed by : [address], [place]., [address] Alk phos 390(H) 40 - 130 Units/L DAYANA Comment:Testing performed by : [address] [address] ALT 17 7 - 45 Units/L DAYANA Comment:Testing performed by : [address] [address] AST 31 10 - 45 Units/L DAYANA Comment:Testing performed by : [address] [address] Blood 11/19/2024 6:23 AM [employer] E[employer] COMMANDING OFFICER 11/19/2024 6:31 AM [employer] COMMANDING OFFICER Ivan Vargas MD LAB BLOOD ORDERABLES Final Re sult [facility] [address] [facility] Department of Laboratories [place], [place] [id number] * (ABNORMAL) POCT glucose (11/18/2024 8:46 PM [employer] COMMANDING OFFICER) [facility] Glucose, POC 234(H) 70 - 199 mg/dL Comment:Testing performed by : [address] [address] Glucose comment 1 Use This Result DAYANA Comment:Testing performed by : [address] [address] Glucose comment 2 RN/MD Notified DAYANA Comment:Testing performed by : [address] [address] Blood 11/18/2024 8:46 PM [employer] E[employer] COMMANDING OFFICER 11/18/2024 8:46 PM [employer] E[employer] COMMANDING OFFICER us Ivan Vargas MD LAB POCT ORDERABLES - DEVICE Final Result DAYANA [facility] [address] [facility] Department [place] [address] * CT Abdomen Pelvis WO Contrast (11/18/2024 8:34 PM [employer] E[employer] COMMANDING OFFICER) Anatomical Region Laterality Modality Body N/A Computed Tomogra phy 11/18/2024 9:07 PM [employer] E[employer] COMMANDING OFFICER Narrative 11/18/2024 9:19 PM [employer] COMMANDING OFFICER EXAM DESCRIPTION: CT ABDOMEN PELVIS WO CONTRAST REASON FOR STUDY: Diarrhea, pain, vomiting, diarrhea Lower abdominal pain x 3 weeks. TECHNIQUE: CT scan of the abdomen and pelvis performed without intravenous and without oral contrast using helical scanning technique. Reconstructed coronal and sagittal MPR images reviewed. All images stored on PACS. Automated exposure control was used as a dose optimization technique for this examination. COMPARISON: 11/11/2024 FINDINGS: The sensitivity for detection of visceral lesions is diminished without the use of intravenous contrast. LOWER CHEST: Moderate right and small left pleural effusions with bibasilar atelectasis. Coronary artery calcification. Small pericardial effusion with partially calcified pericardium. Small hiatal hernia. LIVER: Shrunken and nodular as seen cirrhosis . GALLBLADDER: Stones. No wall thickening or pericholecystic fluid. BILE DUCTS: No intrahepatic or extrahepatic ductal dilatation. SPLEEN: Normal size. No focal lesions. PANCREAS: No identified cystic or solid masses. No significant calcifications. No adjacent inflammation or peripancreatic fluid collections. Pancreatic duct not dilated. ADRENALS: Normal. KIDNEYS/URINARY TRACT: No identified significant cystic or solid masses. No stones. No hydronephrosis or hydroureter. Both kidneys appear somewhat atrophic. There is gas within the urinary bladder, which presumably reflects recent instrumentation. Correlate clinically. GI: No dilated bowel loops. No obvious wall thickening appendix not visualized. Scattered diverticular disease without diverticulitis. There is a rectal tube in place. PERITONEUM: No ascites or free air. RETROPERITONEUM: No mass or adenopathy. REPRODUCTIVE: No significant abnormality. VASCULATURE: No abdominal aortic aneurysm. Atherosclerotic calcification of the abdominal aorta and iliac arteries. MUSCULOSKELETAL: Multilevel degenerative changes are present without fracture. No concerning lesions are present. Right hip arthroplasty with resulting artifact. OTHER: Anasarca. IMPRESSION: Moderate right and small left pleural effusions with bibasilar atelectasis. Coronary artery calcification. Small pericardial effusion with partially calcified pericardium. Small hiatal hernia. Cholelithiasis. Diverticulosis. No evidence of diverticulitis. Gas within the urinary bladder, which presumably reflects recent instrumentation. Shrunken and nodular as seen cirrhosis. THIS IS AN ELECTRONICALLY VERIFIED FINAL REPORT 11/18/2024 9:19 PM - Electronically signed by Pedro Alexis M.D. KT: KIM Report ID: [id number] Reading Location: [id number] Procedure Note Pedro Alexis MD - 11/18/2024 EXAM DESCRIPTION: CT ABDOMEN PELVIS WO CONTRAST REASON FOR STUDY: Diarrhea, pain, vomiting, diarrhea Lower abdominal pain x 3 weeks. TECHNIQUE: CT scan of the abdomen and pelvis performed without intravenousand without oral contrast using helical scanning technique. Reconstructed coronal and sagittal MPR images reviewed. All images stored on PACS.Automated exposure control was used as a dose optimization technique for this examination. COMPARISON: 11/11/2024 FINDINGS: The sensitivity for detection of visceral lesions is diminished without the use of intravenous contrast. LOWER CHEST: Moderate right and small left pleural effusions withbibasilar atelectasis. Coronary artery calcification. Small pericardial effusionwith partially calcified pericardium. Small hiatal hernia. LIVER: Shrunken and nodular as seen cirrhosis . GALLBLADDER: Stones. No wall thickening or pericholecystic fluid. BILE DUCTS: No intrahepatic or extrahepatic ductal dilatation. SPLEEN: Normal size. No focal lesions. PANCREAS: No identified cystic or solid masses. No significant calcifications. No adjacent inflammation or peripancreatic fluidcollections. Pancreatic duct not dilated. ADRENALS: Normal. KIDNEYS/URINARY TRACT: No identified significant cystic or solid masses.No stones. No hydronephrosis or hydroureter. Both kidneys appear somewhat atrophic. There is gas within the urinary bladder, which presumablyreflects recent instrumentation. Correlate clinically. GI: No dilated bowel loops. No obvious wall thickening appendix not visualized. Scattered diverticular disease without diverticulitis. Thereis a rectal tube in place. PERITONEUM: No ascites or free air. RETROPERITONEUM: No mass or adenopathy. REPRODUCTIVE: No significant abnormality. VASCULATURE: No abdominal aortic aneurysm. Atheroscleroticcalcification of the abdominal aorta and iliac arteries. MUSCULOSKELETAL: Multilevel degenerative changes are present without fracture. No concerning lesions are present. Right hip arthroplasty with resulting artifact. OTHER: Anasarca. IMPRESSION: Moderate right and small left pleural effusions with bibasilaratelectasis. Coronary artery calcification. Small pericardial effusion with partially calcified pericardium. Small hiatal hernia. Cholelithiasis. Diverticulosis. No evidence of diverticulitis. Gas within the urinary bladder, which presumably reflects recent instrumentation. Shrunken and nodular as seen cirrhosis. THIS IS AN ELECTRONICALLY VERIFIED FINAL REPORT 11/18/2024 9:19 PM - Electronically signed by Pedro Alexis M.D. KT: KT Report ID: [id number] Reading Location: [place] [address] us Ivan Vargas MD IMG CT PROCEDURES Final Resul t * (ABNORMAL) POCT glucose (11/18/2024 5:49 PM [employer] COMMANDING OFFICER) [facility] Signature Glucose, POC 216(H) 70 - 199 mg/dL Comment:Testing performed by : [address] [address] Glucose comment 1 RN/MD Notified DAYANA CARPIO Comment:Testing performed by : [address] [address] Glucose comment 2 Use This Result DAYANA CARPIO Comment:Testing performed by : [address] [address] Blood 11/18/2024 5:49 PM [employer] E[employer] COMMANDING OFFICER 11/18/2024 5:49 PM [employer] COMMANDING OFFICER Ivan Vargas MD LAB POCT ORDERABLES - DEVICE Final Result DAYANA CARPIO [address] [facility] Department [place] [address] * (ABNORMAL) POCT glucose (11/18/2024 12:43 PM [employer] E[employer] COMMANDING OFFICER) [facility] Glucose, POC 232(H) 70 - 199 mg/dL Comment:Testing performed by : [address] [address] Glucose comment 1 Use This Result DAYANA Comment:Testing performed by : [address] [address] Blood 11/18/2024 12:4 3 PM [employer] E[employer] COMMANDING OFFICER 11/18/2024 12:43 PM [employer] E[employer] COMMANDING OFFICER Ivan Vargas MD LAB POCT ORDERABLES - DEVICE Final Result Performing Organization Address City/[facility]/ZIP Co de Phone Number DAYANA [facility] [place] [address] * POCT glucose (11/18/2024 7:55 AM [employer] EQU[employer]MENT COMMANDING OFFICER) [facility] Glucose, POC 145 70 - 199 mg/dL Comment:Testing performed by : [address] [address] Glucose comment 1 Use This Result DAYANA Comment:Testing performed by : [address] [address] Glucose comment 2 RN/MD Notified DAYANA Comment:Testing performed by : [address] [address] Blood 11/18/2024 7:55 AM [employer] E[employer]MENT COMMANDING OFFICER 11/18/2024 7:55 AM [employer] E[employer] COMMANDING OFFICER Ivan Vargas MD LAB POCT ORDERABLES - DEVICE Final Result DAYANA [facility] [place] [address] * (ABNORMAL) Differential, auto (11/18/2024 6:35 AM [employer] E[employer] COMMANDING OFFICER) [facility] Neutrophil abs 3.7 1.5 - 6.5 K/cumm Comment:Testing performed by : [address], [place]., [address] Imm gran abs 0.1 0.0 - 0.1 K/cumm [facility] Comment:Testing performed by : [address], [place]., [address] Lymphocyte abs 1.0 0.8 - 3.3 K/cumm [facility] Comment:Testing performed by : [address], [place]., [address] Monocyte abs 1.2(H) 0.2 - 0.8 K/cumm [facility] Comment:Testing performed by : [address], [place]., [address] Eosinophil abs 1.0(H) 0.0 - 0.5 K/cumm [facility] Comment:Testing performed by : [address], [place]., [address] Basophil abs 0.1 0.0 - 0.1 K/cumm [facility] Comment:Testing performed by : [address] [address] Neutrophil pct 52.9 % [facility] Comment: Interpretive Data Percent cell count reference ranges are not reported, since discordance with absolute values may lead to misinterpretation of CBC data. Current Interpretive Data was last revised on 2018. Testing performed by: [address] [address] Imm gran pct 1.1 % [facility] Comment: Interpretive Data Percent cell count reference ranges are not reported, since discordance with absolute values may lead to misinterpretation of CBC data. Current Interpretive Data was last revised on 2018. Testing performed by: [address] [address] Lymphocyte pct 14.4 % [facility] Comment: Interpretive Data Percent cell count reference ranges are not reported, since discordance with absolute values may lead to misinterpretation of CBC data. Current Interpretive Data was last revised on 2018. Testing performed by: [address] [address] Monocyte pct 17.1 % [facility] Comment: Interpretive Data Percent cell count reference ranges are not reported, since discordance with absolute values may lead to misinterpretation of CBC data. Current Interpretive Data was last revised on 2018. Testing performed by: [address] [address] Eosinophil pct 13.5 % DAYANA Comment: Interpretive Data Percent cell count reference ranges are not reported, since discordance with absolute values may lead to misinterpretation of CBC data. Current Interpretive Data was last revised on 2018. Testing performed by: [address] [address] Basophil pct 1.0 % DAYANA Comment: Interpretive Data Percent cell count reference ranges are not reported, since discordance with absolute values may lead to misinterpretation of CBC data. Current Interpretive Data was last revised on 2018. Testing performed by: [address] [address] Blood 11/18/2024 6:35 AM [employer] 11/18/2024 6:57 AM [employer] COMMANDING OFFICER us Ivan Vargas MD LAB BLOOD ORDERABLES Final Re sult [facility] [address] [facility] Department [place] [address] * (ABNORMAL) CBC with auto differential (11/18/2024 6:35 AM [employer] COMMANDING OFFICER) Pathologist [facility] WBC 7.1 3.8 - 9.9 K/cumm Comment:Testing performed by : [address] [address] Hgb 9.0(L) 11.9 - 15.5 g/dL DAYANA Comment:Testing performed by : [address] [address] Hct 28.2(L) 35.6 - 45.5 % DAYANA Comment:Testing performed by : [address] [address] Plt 247 150 - 400 K/cumm DAYANA Comment:Testing performed by : [address] [address] MPV 11.1 9.1 - 12.3 fL DAYANA CARPIO Comment:Testing performed by : [address] [address] RBC 2.73(L) 3.90 - 5.20 M/cumm DAYANA CARPIO Comment:Testing performed by : [address] [address] MCV 103.3(H) 81.3 - 96.4 fL DAYANA Comment:Testing performed by : [address] [address] MCH 33.0 27.1 - 33.3 pg DAYANA Comment:Testing performed by : [address], [address] MCHC 31.9(L) 32.3 - 35.7 g/dL DAYANA CARPIO Comment:Testing performed by : [address], [address] RDW CV 16.6(H) 11.1 - 14.9 % DAYANA Comment:Testing performed by : [address] [address] RDW SD 62.6(H) 35.7 - 48.1 fL DAYANA Comment:Testing performed by : [address] [address] NRBC abs 0.00 0.00 - 0.01 K/cumm DAYANA Comment:Testing performed by : [address], [address] Blood 11/18/2024 6:35 AM [employer]ING OFF[employer]ER 11/18/2024 6:57 AM [employer] COMMANDING OFFICER us Ivan Vargas MD LAB BLOOD ORDERABLES Final Re sult DAYANA CARPIO [address] [facility] Department [place] [address] * (ABNORMAL) eGFR (11/18/2024 5:52 AM [employer]ING OFFICER) eGFR 28(L) >=60 mL/min/1. 73 m2 Comment: Interpretive Data Reference Interval Normal >/= 90 mL/min/1.73m2 Mildly decreased* 60 - 89 mL/min/1.73m2 Mildly to moderately decreased 45 - 59 mL/min/1.73m2 Moderately to severely decreased 30 - 44 mL/min/1.73m2 Severely decreased 15 - 29 mL/min/1.73m2 Kidney Failure < 15 mL/min/1.73m2 *Relative to young adult level Estimated glomerular filtration rate is determined by the 2020 CKD-EPI equation recommended by the National Kidney Foundation (A Unifying Approach to GFR Estimation: Recommendations of the NKF-ASK Task Force on Reassessing the Inclusion of Race in Diagnosing Kidney Disease, JASN 2020). The CKD-EPI equation should not be used for patients with unstable renal function and has not been validated in children and those over 70. Current interpretive data was last reviewed 2021. Testing performed by: [address] [address] Blood 11/18/2024 5:52 AM [employer]ING OFF[employer]ER 11/18/2024 6:24 AM [employer] COMMANDING OFFICER Ivan Vargas MD LAB BLOOD ORDERABLES Final Re sult Performing Organization Address City/[facility] Co de Phone Number [address] [place] [address] * Folate (11/18/2024 5:52 AM [employer] COMMANDING OFFICER) Folic acid >20.0 >=5.0 ng/mL Comment:Testing performed by : [address] [address] Blood 11/18/2024 5:52 AM [employer] COMMANDING OFFICER 11/18/2024 6:24 AM [employer] COMMANDING OFFICER Ivan Vargas MD LAB BLOOD ORDERABLES Final Re sult [address] [place] [address] * Vitamin B12 (11/18/2024 5:52 AM [employer] COMMANDING OFFICER) Pathologist [facility] Vitamin B12 910 230 - 1,250 pg/mL Comment:Testing performed by : [address] [address] Blood 11/18/2024 5:52 AM [employer] COMMANDING OFFICER 11/18/2024 6:24 AM [employer] E[employer] COMMANDING OFFICER us Ivan Vargas MD LAB BLOOD ORDERABLES Final Re sult [facility] [address] [facility] Department [place] [address] * (ABNORMAL) Comprehensive metabolic panel (11/18/2024 5:52 AM [employer] COMMANDING OFFICER) [facility] Sodium 132(L) 135 - 145 mmol/L Comment:Testing performed by : [address] [address] Potassium, pl 3.9 3.3 - 4.9 mmol/L DAYANA Comment:Testing performed by : [address] [address] Chloride 92(L) 97 - 110 mmol/L DAYANA Comment:Testing performed by : [address] [address] CO2 27 22 - 32 mmol/L DAYANA Comment:Testing performed by : [address] [address] Anion gap 13 2 - 15 mmol/L DAYANA Comment:Testing performed by : [address] [address] BUN 43(H) 6 - 25 mg/dL DAYANA Comment:Testing performed by : [address] [address] Creatinine 1.90(H) 0.60 - 1.10 mg/dL DAYANA Comment:Testing performed by : [address] [address] Glucose 140 70 - 199 mg/dL DAYANA Comment: Interpretive Data Fasting glucose >/= 126 mg/dl is diagnostic for diabetes. Fasting is defined as no caloric intake for at least 8 hours. Fasting glucose between 100 mg/dl to 125 mg/dl is diagnostic of prediabetes. In a patient with classic symptoms of hyperglycemia or hyperglycemic crisis, a random glucose >/= 200 mg/dl is diagnostic for diabetes. In the absence of unequivocal hyperglycemia, results should be confirmed by repeat testing. The classification and Diagnosis of Diabetes Diabetes Care 202; 46: S19-S40. Current interpretive data was last revised 2022. Testing performed by: [address] [address] Calcium 10.0 8.5 - 10.3 mg/dL DAYANA Comment:Testing performed by : [address] [address] Bilirubin, total 1.5(H) 0.1 - 1.2 mg/dL DAYANA Comment:Testing performed by : [address] [address] Protein, pl 6.3(L) 6.5 - 8.5 g/dL DAYANA Comment:Testing performed by : [address] [address] Albumin 3.8 3.5 - 5.0 g/dL DAYANA Comment:Testing performed by : [address] [address] Alk phos 369(H) 40 - 130 Units/L DAYANA Comment:Testing performed by : [address] [address] ALT 17 7 - 45 Units/L DAYANA Comment:Testing performed by : [address] [address] AST 36 10 - 45 Units/L DAYANA Comment:Testing performed by : [address] [address] Blood 11/18/2024 5:52 AM [employer]ING OFFICER 11/18/2024 6:24 AM [employer] COMMANDING OFFICER us Ivan Vargas MD LAB BLOOD ORDERABLES Final Re sult [facility] [address] [facility] Department [place] [address] * (ABNORMAL) POCT glucose (11/17/2024 8:52 PM [employer]ING OFFICER) Glucose, POC 275(H) 70 - 199 mg/dL Comment:Testing performed by : [address] [address] Blood 11/17/2024 8:52 PM [employer] E[employer] COMMANDING OFFICER 11/17/2024 8:52 PM [employer] COMMANDING OFFICER Ivan Vargas MD LAB POCT ORDERABLES - DEVICE Final Result Performing Organization Address [facility] de Phone Number MARY [address] [place] [address] * (ABNORMAL) POCT glucose (11/17/2024 6:05 PM [employer] COMMANDING OFFICER) Glucose, POC 280(H) 70 - 199 mg/dL Comment:Testing performed by : [address] [address] Glucose comment 1 Use This Result DAYANA Comment:Testing performed by : [address] [address] Glucose comment 2 RN/MD Notified DAYANA Comment:Testing performed by : [address] [address] Blood 11/17/2024 6:05 PM [employer] COMMANDING OFFICER 11/17/2024 6:05 PM [employer] COMMANDING OFFICER Ivan Vargas MD LAB POCT ORDERABLES - DEVICE Final Result Performing Organization Address [facility] Co de Phone Number [address] [place] [address] * (ABNORMAL) POCT glucose (11/17/2024 1:08 PM [employer] COMMANDING OFFICER) Glucose, POC 236(H) 70 - 199 mg/dL Comment:Testing performed by : [address] [address] Glucose comment 1 Use This Result DAYANA Comment:Testing performed by : [address] [address] Glucose comment 2 RN/MD Notified DAYANA Comment:Testing performed by : [address] [address] Blood 11/17/2024 1:08 PM [employer] COMMANDING OFFICER 11/17/2024 1:08 PM [employer] COMMANDING OFFICER Ivan Vargas MD LAB POCT ORDERABLES - DEVICE Final Result Performing Organization Address [facility] de Phone Number DAYANA [address] [place] [address] * POCT glucose (11/17/2024 9:20 AM [employer] E[employer] COMMANDING OFFICER) [facility] Glucose, POC 146 70 - 199 mg/dL Comment:Testing performed by : [address] [address] Glucose comment 1 Use This Result DAYANA Comment:Testing performed by : [address], [address] Glucose comment 2 RN/MD Notified DAYANA Comment:Testing performed by : [address] [address] Blood 11/17/2024 9:20 AM [employer] E[employer] COMMANDING OFFICER 11/17/2024 9:20 AM [employer] E[employer] COMMANDING OFFICER Ivan Vargas MD LAB POCT ORDERABLES - DEVICE Final Result Performing Organization Address [facility] de Phone Number MARY ALICE[address] [place] [address] * (ABNORMAL) eGFR (11/17/2024 7:01 AM [employer] COMMANDING OFFICER) [facility] eGFR 28(L) >=60 mL/min/1. 73 m2 Comment: Interpretive Data Reference Interval Normal >/= 90 mL/min/1.73m2 Mildly decreased* 60 - 89 mL/min/1.73m2 Mildly to moderately decreased 45 - 59 mL/min/1.73m2 Moderately to severely decreased 30 - 44 mL/min/1.73m2 Severely decreased 15 - 29 mL/min/1.73m2 Kidney Failure < 15 mL/min/1.73m2 *Relative to young adult level Estimated glomerular filtration rate is determined by the 2020 CKD-EPI equation recommended by the National Kidney Foundation (A Unifying Approach to GFR Estimation: Recommendations of the NKF-ASK Task Force on Reassessing the Inclusion of Race in Diagnosing Kidney Disease, JASN 2020). The CKD-EPI equation should not be used for patients with unstable renal function and has not been validated in children and those over 70. Current interpretive data was last reviewed 2021. Testing performed by: [address] [address] Blood 11/17/2024 7:01 AM [employer] COMMANDING OFFICER 11/17/2024 7:33 AM [employer] E[employer] COMMANDING OFFICER us Ivan Vargas MD LAB BLOOD ORDERABLES Final Re sult [facility] [address] [facility] Department [place] [address] * (ABNORMAL) Differential, auto (11/17/2024 7:01 AM [employer] COMMANDING OFFICER) Neutrophil abs 3.8 1.5 - 6.5 K/cumm Comment:Testing performed by : [address] [address] Imm gran abs 0.1 0.0 - 0.1 K/cumm DAYANA CARPIO Comment:Testing performed by : [address] [address] Lymphocyte abs 0.8 0.8 - 3.3 K/cumm DAYANA Comment:Testing performed by : [address] [address] Monocyte abs 1.0(H) 0.2 - 0.8 K/cumm DAYANA CARPIO Comment:Testing performed by : [address] [address] Eosinophil abs 0.7(H) 0.0 - 0.5 K/cumm DAYANA CARPIO Comment:Testing performed by : [address] [address] Basophil abs 0.1 0.0 - 0.1 K/cumm DAYANA Comment:Testing performed by : [address] [address] Neutrophil pct 58.2 % [facility] Comment: Interpretive Data Percent cell count reference ranges are not reported, since discordance with absolute values may lead to misinterpretation of CBC data. Current Interpretive Data was last revised on 2018. Testing performed by: [address] [address] Imm gran pct 0.9 % [facility] Comment: Interpretive Data Percent cell count reference ranges are not reported, since discordance with absolute values may lead to misinterpretation of CBC data. Current Interpretive Data was last revised on 2018. Testing performed by: [address] [address] Lymphocyte pct 12.4 % [facility] Comment: Interpretive Data Percent cell count reference ranges are not reported, since discordance with absolute values may lead to misinterpretation of CBC data. Current Interpretive Data was last revised on 2018. Testing performed by: [address] [address] Monocyte pct 15.8 % [facility] Comment: Interpretive Data Percent cell count reference ranges are not reported, since discordance with absolute values may lead to misinterpretation of CBC data. Current Interpretive Data was last revised on 2018. Testing performed by: [address] [address] Eosinophil pct 11.5 % [facility] Comment: Interpretive Data Percent cell count reference ranges are not reported, since discordance with absolute values may lead to misinterpretation of CBC data. Current Interpretive Data was last revised on 2018. Testing performed by: [address] [address] Basophil pct 1.2 % [facility] Comment: Interpretive Data Percent cell count reference ranges are not reported, since discordance with absolute values may lead to misinterpretation of CBC data. Current Interpretive Data was last revised on 2018. Testing performed by: [address] [address] Blood 11/17/2024 7:01 AM [employer] COMMANDING OFFICER 11/17/2024 7:34 AM [employer] E[employer] COMMANDING OFFICER us Ivan Vargas MD LAB BLOOD ORDERABLES Final Re sult [facility] [address] [facility] Department [place] [address] * (ABNORMAL) CBC with auto differential (11/17/2024 7:01 AM [employer] COMMANDING OFFICER) WBC 6.5 3.8 - 9.9 K/cumm Comment:Testing performed by : [address] [address] Hgb 8.9(L) 11.9 - 15.5 g/dL DAYANA Comment:Testing performed by : [address] [address] Hct 27.6(L) 35.6 - 45.5 % DAYANA Comment:Testing performed by : [address] [address] Plt 227 150 - 400 K/cumm DAYANA Comment:Testing performed by : [address] [address] MPV 11.2 9.1 - 12.3 fL DAYANA Comment:Testing performed by : [address] [address] RBC 2.70(L) 3.90 - 5.20 M/cumm DAYANA Comment:Testing performed by : [address] [address] MCV 102.2(H) 81.3 - 96.4 fL DAYANA Comment:Testing performed by : [address] [address] MCH 33.0 27.1 - 33.3 pg DAYANA Comment:Testing performed by : [address] [address] MCHC 32.2(L) 32.3 - 35.7 g/dL DAYANA Comment:Testing performed by : [address] [place]., [address] RDW CV 16.6(H) 11.1 - 14.9 % DAYANA CARPIO Comment:Testing performed by : [address] [address] RDW SD 60.4(H) 35.7 - 48.1 fL DAYANA CARPIO Comment:Testing performed by : [address] [address] NRBC abs 0.00 0.00 - 0.01 K/cumm DAYANA CARPIO Comment:Testing performed by : [address] [address] Blood 11/17/2024 7:01 AM [employer] E[employer] COMMANDING OFFICER 11/17/2024 7:34 AM [employer] E[employer] COMMANDING OFFICER us Ivan Vargas MD LAB BLOOD ORDERABLES Final Re sult [facility] [address] [facility] Department [place] [address] * (ABNORMAL) Comprehensive metabolic panel (11/17/2024 7:01 AM [employer] COMMANDING OFFICER) Sodium 135 135 - 145 mmol/L Comment:Testing performed by : [address] [address] Potassium, pl 3.3 3.3 - 4.9 mmol/L DAYANA CRAPIO Comment:Testing performed by : [address] [address] Chloride 92(L) 97 - 110 mmol/L DAYANA CARPIO Comment:Testing performed by : [address] [address] CO2 29 22 - 32 mmol/L DAYANA CARPIO Comment:Testing performed by : [address] [address] Anion gap 14 2 - 15 mmol/L DAYANA CARPIO Comment:Testing performed by : [address] [address] BUN 40(H) 6 - 25 mg/dL DAYANA CARPIO Comment:Testing performed by : [address] [address] Creatinine 1.90(H) 0.60 - 1.10 mg/dL [facility] Comment:Testing performed by : [address] [address] Glucose 146 70 - 199 mg/dL [facility] Comment: Interpretive Data Fasting glucose >/= 126 mg/dl is diagnostic for diabetes. Fasting is defined as no caloric intake for at least 8 hours. Fasting glucose between 100 mg/dl to 125 mg/dl is diagnostic of prediabetes. In a patient with classic symptoms of hyperglycemia or hyperglycemic crisis, a random glucose >/= 200 mg/dl is diagnostic for diabetes. In the absence of unequivocal hyperglycemia, results should be confirmed by repeat testing. The classification and Diagnosis of Diabetes Diabetes Care 202; 46: S19-S40. Current interpretive data was last revised 2022. Testing performed by: [address] [address] Calcium 9.3 8.5 - 10.3 mg/dL [facility] Comment:Testing performed by : [address] [address] Bilirubin, total 1.6(H) 0.1 - 1.2 mg/dL [facility] Comment:Testing performed by : [address] [address] Protein, pl 6.1(L) 6.5 - 8.5 g/dL [facility] Comment:Testing performed by : [address] [address] Albumin 3.8 3.5 - 5.0 g/dL [facility] Comment:Testing performed by : [address] [address] Alk phos 309(H) 40 - 130 Units/L [facility] Comment:Testing performed by : [address] [address] ALT 14 7 - 45 Units/L [facility] Comment:Testing performed by : [address] [address] AST 32 10 - 45 Units/L [facility] Comment:Testing performed by : [address] [address] Blood 11/17/2024 7:01 AM [employer] E[employer]IPMENT COMMANDING OFFICER 11/17/2024 7:33 AM [employer] E[employer] COMMANDING OFFICER Ivan Vargas MD LAB BLOOD ORDERABLES Final Re sult Performing Organization Address [facility]/ZIP Co de Phone Number DAYANA [address] [facility] [place] [address] * (ABNORMAL) POCT glucose (11/16/2024 7:44 PM [employer] E[employer] COMMANDING OFFICER) Glucose, POC 205(H) 70 - 199 mg/dL Comment:Testing performed by : [address] [address] Glucose comment 1 Use This Result DAYANA Comment:Testing performed by : [address] [address] Glucose comment 2 RN/MD Notified [facility] Comment:Testing performed by : [address] [address] Blood 11/16/2024 7:44 PM [employer] EQU[employer]MENT COMMANDING OFFICER 11/16/2024 7:44 PM [employer] E[employer] COMMANDING OFFICER Ivan Vargas MD LAB POCT ORDERABLES - DEVICE Final Result Performing Organization Address [facility]/ZIP Co de Phone Number DAYANA [address] [facility] [place] [address] * POCT glucose (11/16/2024 6:33 PM MOT[employer] EQUIPMENT COMMANDING OFFICER) Glucose, POC 155 70 - 199 mg/dL Comment:Testing performed by : [address] [address] Glucose comment 1 Use This Result DAYANA Comment:Testing performed by : [address] [address] Glucose comment 2 RN/MD Notified [facility] Comment:Testing performed by : [address] [address] Blood 11/16/2024 6:33 PM [employer] EQUIPMENT COMMANDING OFFICER 11/16/2024 6:33 PM [employer] EQUIPMENT COMMANDING OFFICER Ivan Vargas MD LAB POCT ORDERABLES - DEVICE Final Result Performing Organization Address [facility] de Phone Number DAYANA CARPIO [address] [place] [address] [place] [address] * (ABNORMAL) POCT glucose (11/16/2024 11:54 AM MOT[employer] E[employer]MENT COMMANDING OFFICER) [facility] Glucose, POC 203(H) 70 - 199 mg/dL Comment:Testing performed by : [facility], [address] [place] [address]., [address] Glucose comment 1 Use This Result DAYANA CARPIO Comment:Testing performed by : [address] [address] Glucose comment 2 RN/MD Notified DAYANA CARPIO Comment:Testing performed by : [address] [address] Blood 11/16/2024 11:5 4 AM [employer] E[employer]MENT COMMANDING OFFICER 11/16/2024 11:54 AM [employer] EQU[employer] COMMANDING OFFICER Ivan Vargas MD LAB POCT ORDERABLES - DEVICE Final Result Performing Organization Address [facility] de Phone Number DAYANA CARPIO [address] [place] [address] [place] [address] * (ABNORMAL) eGFR (11/16/2024 9:56 AM [employer] E[employer] COMMANDING OFFICER) [facility] eGFR 26(L) >=60 mL/min/1. 73 m2 Comment: Interpretive Data Reference Interval Normal >/= 90 mL/min/1.73m2 Mildly decreased* 60 - 89 mL/min/1.73m2 Mildly to moderately decreased 45 - 59 mL/min/1.73m2 Moderately to severely decreased 30 - 44 mL/min/1.73m2 Severely decreased 15 - 29 mL/min/1.73m2 Kidney Failure < 15 mL/min/1.73m2 *Relative to young adult level Estimated glomerular filtration rate is determined by the 2020 CKD-EPI equation recommended by the National Kidney Foundation (A Unifying Approach to GFR Estimation: Recommendations of the NKF-ASK Task Force on Reassessing the Inclusion of Race in Diagnosing Kidney Disease, JASN 2020). The CKD-EPI equation should not be used for patients with unstable renal function and has not been validated in children and those over 70. Current interpretive data was last reviewed 2021. Testing performed by: [address] [address] Blood 11/16/2024 9:56 AM [employer] E[employer] COMMANDING OFFICER 11/16/2024 10:30 AM [employer] E[employer] COMMANDING OFFICER us Ivan Vargas MD LAB BLOOD ORDERABLES Final Re sult [facility] [address] [facility] Department [place] [address] * (ABNORMAL) Differential, auto (11/16/2024 9:56 AM [employer] E[employer] COMMANDING OFFICER) Neutrophil abs 4.2 1.5 - 6.5 K/cumm Comment:Testing performed by : [address] [address] Imm gran abs 0.1 0.0 - 0.1 K/cumm DAYANA Comment:Testing performed by : [address] [address] Lymphocyte abs 0.5(L) 0.8 - 3.3 K/cumm [facility] Comment:Testing performed by : [address] [address] Monocyte abs 0.8 0.2 - 0.8 K/cumm DAYANA Comment:Testing performed by : [address] [address] Eosinophil abs 0.6(H) 0.0 - 0.5 K/cumm [facility] Comment:Testing performed by : [address] [address] Basophil abs 0.1 0.0 - 0.1 K/cumm [facility]ANA Comment:Testing performed by : [address] [address] Neutrophil pct 67.6 % [facility] Comment: Interpretive Data Percent cell count reference ranges are not reported, since discordance with absolute values may lead to misinterpretation of CBC data. Current Interpretive Data was last revised on 2018. Testing performed by: [address] [address] Imm gran pct 1.0 % [facility] Comment: Interpretive Data Percent cell count reference ranges are not reported, since discordance with absolute values may lead to misinterpretation of CBC data. Current Interpretive Data was last revised on 2018. Testing performed by: [address] [address] Lymphocyte pct 8.2 % [facility] Comment: Interpretive Data Percent cell count reference ranges are not reported, since discordance with absolute values may lead to misinterpretation of CBC data. Current Interpretive Data was last revised on 2018. Testing performed by: [address] [address] Monocyte pct 12.5 % [facility] Comment: Interpretive Data Percent cell count reference ranges are not reported, since discordance with absolute values may lead to misinterpretation of CBC data. Current Interpretive Data was last revised on 2018. Testing performed by: [address] [address] Eosinophil pct 9.6 % [facility] Comment: Interpretive Data Percent cell count reference ranges are not reported, since discordance with absolute values may lead to misinterpretation of CBC data. Current Interpretive Data was last revised on 2018. Testing performed by: [address] [address] Basophil pct 1.1 % [facility] Comment: Interpretive Data Percent cell count reference ranges are not reported, since discordance with absolute values may lead to misinterpretation of CBC data. Current Interpretive Data was last revised on 2018. Testing performed by: [address] [address] Blood 11/16/2024 9:56 AM [employer] COMMANDING OFFICER 11/16/2024 10:29 AM [employer] E[employer] COMMANDING OFFICER us Ivan Vargas MD LAB BLOOD ORDERABLES Final Re sult [facility] [address] [facility] [facility] [place] [address] * (ABNORMAL) CBC with auto differential (11/16/2024 9:56 AM [employer]MENT COMMANDING OFFICER) WBC 6.2 3.8 - 9.9 K/cumm Comment:Testing performed by : [address] [address] Hgb 8.4(L) 11.9 - 15.5 g/dL DAYANA Comment:Testing performed by : [address] [address] Hct 26.7(L) 35.6 - 45.5 % DAYANA Comment:Testing performed by : [address] [address] Plt 216 150 - 400 K/cumm DAYANA Comment:Testing performed by : [address] [address] MPV 11.1 9.1 - 12.3 fL DYAANA Comment:Testing performed by : [address] [address] RBC 2.60(L) 3.90 - 5.20 M/cumm DAYANA Comment:Testing performed by : [address] [address] MCV 102.7(H) 81.3 - 96.4 fL DAYANA Comment:Testing performed by : [address] [address] MCH 32.3 27.1 - 33.3 pg DAYANA Comment:Testing performed by : [address] [address] MCHC 31.5(L) 32.3 - 35.7 g/dL DAYANA Comment:Testing performed by : [address] [address] RDW CV 16.6(H) 11.1 - 14.9 % DAYANA Comment:Testing performed by : [address], [address] RDW SD 61.2(H) 35.7 - 48.1 fL DAYANA CARPIO Comment:Testing performed by : [address] [address] NRBC abs 0.00 0.00 - 0.01 K/cumm DAYANA CARPIO Comment:Testing performed by : [address] [address] Blood 11/16/2024 9:56 AM [employer] COMMANDING OFFICER 11/16/2024 10:29 AM [employer] COMMANDING OFFICER Ivan Vargas MD LAB BLOOD ORDERABLES Final Re sult Performing Organization Address [facility] Co de Phone Number DAYANA [address] [facility] [place] [address] * Hemoglobin A1c (11/16/2024 9:56 AM [employer] COMMANDING OFFICER) Hgb A1C 5.4 4.0 - 5.6 % Comment:Testing performed by : [address] [address] Estimated Average Glucose 108 mg/dL DAYANA Comment: The ADA recommends reporting an estimated Average Glucose (eAG) with all Hemoglobin A1c results using the equation derived from a study of 507 normal and diabetic adults. Minority populations were underrepresented and children were not included. (Diabetes Care 31:5349-4688, 2008). The eAG is not equivalent to a fasting glucose. Testing performed by: [address] [address] Blood 11/16/2024 9:56 AM [employer] COMMANDING OFFICER 11/16/2024 10:29 AM [employer] E[employer] COMMANDING OFFICER Ivan Vargas MD LAB BLOOD ORDERABLES Final Re sult Performing Organization Address [facility] Co de Phone Number [facility] [address] [facility] [place] [address] * (ABNORMAL) Comprehensive metabolic panel (11/16/2024 9:56 AM [employer] COMMANDING OFFICER) Sodium 133(L) 135 - 145 mmol/L Comment:Testing performed by : [address] [address] Potassium, pl 3.1(L) 3.3 - 4.9 mmol/L DAYANA Comment:Testing performed by : [address] [address] Chloride 92(L) 97 - 110 mmol/L DAYANA Comment:Testing performed by : [address] [address] CO2 27 22 - 32 mmol/L DAYANA Comment:Testing performed by : [address] [address] Anion gap 14 2 - 15 mmol/L DAYANA Comment:Testing performed by : [address] [address] BUN 39(H) 6 - 25 mg/dL DAYANA Comment:Testing performed by : [address] [address] Creatinine 2.04(H) 0.60 - 1.10 mg/dL DAYANA Comment:Testing performed by : [address] [address] Glucose 136 70 - 199 mg/dL [facility] Comment: Interpretive Data Fasting glucose >/= 126 mg/dl is diagnostic for diabetes. Fasting is defined as no caloric intake for at least 8 hours. Fasting glucose between 100 mg/dl to 125 mg/dl is diagnostic of prediabetes. In a patient with classic symptoms of hyperglycemia or hyperglycemic crisis, a random glucose >/= 200 mg/dl is diagnostic for diabetes. In the absence of unequivocal hyperglycemia, results should be confirmed by repeat testing. The classification and Diagnosis of Diabetes Diabetes Care 202; 46: S19-S40. Current interpretive data was last revised 2022. Testing performed by: [address] [address] Calcium 8.9 8.5 - 10.3 mg/dL DAYANA Comment:Testing performed by : [address] [address] Bilirubin, total 1.7(H) 0.1 - 1.2 mg/dL DAYANA Comment:Testing performed by : [address] [address] Protein, pl 6.6 6.5 - 8.5 g/dL DAYANA CARPIO Comment:Testing performed by : [address] [address] Albumin 4.2 3.5 - 5.0 g/dL DAYANA CARPIO Comment:Testing performed by : [address] [address] Alk phos 247(H) 40 - 130 Units/L DAYANA Comment:Testing performed by : [address] [address] ALT 12 7 - 45 Units/L DAYANA Comment:Testing performed by : [address] [address] AST 30 10 - 45 Units/L DAYANA Comment:Testing performed by : [address] [address] Blood 11/16/2024 9:56 AM [employer] COMMANDING OFFICER 11/16/2024 10:30 AM [employer] E[employer] COMMANDING OFFICER us Ivan Vargas MD LAB BLOOD ORDERABLES Final Re sult DAYANA [facility]5 [facility] Department [place] [address] * POCT glucose (11/16/2024 8:53 AM [employer] COMMANDING OFFICER) [facility] Glucose, POC 146 70 - 199 mg/dL Comment:Testing performed by : [address] [address] Glucose comment 1 Use This Result DAYANA Comment:Testing performed by : [address] [address] Glucose comment 2 RN/MD Notified DAYANA Comment:Testing performed by : [address] [address] Blood 11/16/2024 8:53 AM [employer] E[employer] COMMANDING OFFICER 11/16/2024 8:53 AM [employer] E[employer] COMMANDING OFFICER Ivan Vargas MD LAB POCT ORDERABLES - DEVICE Final Result Performing Organization Address City/[facility] Co de Phone Number DAYANA [address] [place] [address] * POCT glucose (11/16/2024 12:30 AM [employer] COMMANDING OFFICER) Glucose, POC 156 70 - 199 mg/dL Comment:Testing performed by : [address] [address] Glucose comment 1 Use This Result DAYANA Comment:Testing performed by : [address] [address] Glucose comment 2 RN/MD Notified DAYANA Comment:Testing performed by : [address] [address] Blood 11/16/2024 12:3 0 AM [employer] COMMANDING OFFICER 11/16/2024 12:30 AM [employer] E[employer] COMMANDING OFFICER Ivan Vargas MD LAB POCT ORDERABLES - DEVICE Final Result Performing Organization Address [facility] Co de Phone Number DAYANA [address] [address] * POCT glucose (11/15/2024 8:35 PM [employer] E[employer] COMMANDING OFFICER) Glucose, POC 196 70 - 199 mg/dL Comment:Testing performed by : [address] [address] Glucose comment 1 Use This Result DAYANA Comment:Testing performed by : [address] [address] Glucose comment 2 RN/MD Notified DAYANA Comment:Testing performed by : [address] [address] Blood 11/15/2024 8:35 PM [employer] EQUIP[employer] COMMANDING OFFICER 11/15/2024 8:35 PM [employer] E[employer] COMMANDING OFFICER Ivan Vargas MD LAB POCT ORDERABLES - DEVICE Final Result Performing Organization Address City/[facility] Co de Phone Number DAYANA [address] [place] [address] * POCT glucose (11/15/2024 5:29 PM [employer] E[employer] COMMANDING OFFICER) Glucose, POC 152 70 - 199 mg/dL Comment:Testing performed by : [address] [address] Blood 11/15/2024 5:29 PM [employer] E[employer]MENT COMMANDING OFFICER 11/15/2024 5:29 PM [employer] E[employer] COMMANDING OFFICER Ivan Vargas MD LAB POCT ORDERABLES - DEVICE Final Result MARY ALICE[address] [address] * POCT glucose (11/15/2024 1:28 PM [employer] COMMANDING OFFICER) Glucose, POC 154 70 - 199 mg/dL Comment:Testing performed by : [address] [address] Blood 11/15/2024 1:28 PM [employer] E[employer]MENT COMMANDING OFFICER 11/15/2024 1:28 PM [employer] E[employer]MENT COMMANDING OFFICER Ivan Vargas MD LAB POCT ORDERABLES - DEVICE Final Result Performing Organization Address City/[facility]/ZIP Co de Phone Number [address] [address] * POCT glucose (11/15/2024 8:56 AM MOT[employer] E[employer]MENT COMMANDING OFFICER) Glucose, POC 130 70 - 199 mg/dL Comment:Testing performed by : [address] [address] Blood 11/15/2024 8:56 AM [employer] E[employer]MENT COMMANDING OFFICER 11/15/2024 8:56 AM [employer] E[employer]MENT COMMANDING OFFICER us Ivan Vargas MD LAB POCT ORDERABLES - DEVICE Final Result [address] [place] [address] * (ABNORMAL) eGFR (11/15/2024 4:35 AM [employer] COMMANDING OFFICER) eGFR 24(L) >=60 mL/min/1. 73 m2 Comment: Interpretive Data Reference Interval Normal >/= 90 mL/min/1.73m2 Mildly decreased* 60 - 89 mL/min/1.73m2 Mildly to moderately decreased 45 - 59 mL/min/1.73m2 Moderately to severely decreased 30 - 44 mL/min/1.73m2 Severely decreased 15 - 29 mL/min/1.73m2 Kidney Failure < 15 mL/min/1.73m2 *Relative to young adult level Estimated glomerular filtration rate is determined by the 2020 CKD-EPI equation recommended by the National Kidney Foundation (A Unifying Approach to GFR Estimation: Recommendations of the NKF-ASK Task Force on Reassessing the Inclusion of Race in Diagnosing Kidney Disease, JASN 2020). The CKD-EPI equation should not be used for patients with unstable renal function and has not been validated in children and those over 70. Current interpretive data was last reviewed 2021. Testing performed by: [address] [address] Blood 11/15/2024 4:35 AM [employer] E[employer] COMMANDING OFFICER 11/15/2024 6:10 AM [employer] E[employer]MENT COMMANDING OFFICER us Ivan Vargas MD LAB BLOOD ORDERABLES Final Re sult DAYANA [address] [facility] Department [place] [address] * (ABNORMAL) Differential, auto (11/15/2024 4:35 AM [employer] COMMANDING OFFICER) Pathologist [facility] Neutrophil abs 5.0 1.5 - 6.5 K/cumm Comment:Testing performed by : [address] [address] Imm gran abs 0.1 0.0 - 0.1 K/cumm DAYANA CARPIO Comment:Testing performed by : [address] [address] Lymphocyte abs 0.7(L) 0.8 - 3.3 K/cumm DAYANA CARPIO Comment:Testing performed by : [address], [place]., [address] Monocyte abs 1.0(H) 0.2 - 0.8 K/cumm DAYANA Comment:Testing performed by : [address], [place]., [address] Eosinophil abs 0.6(H) 0.0 - 0.5 K/cumm [facility] Comment:Testing performed by : [address], [place]., [address] Basophil abs 0.1 0.0 - 0.1 K/cumm [facility] Comment:Testing performed by : [address] [address] Neutrophil pct 67.6 % [facility] Comment: Interpretive Data Percent cell count reference ranges are not reported, since discordance with absolute values may lead to misinterpretation of CBC data. Current Interpretive Data was last revised on 2018. Testing performed by: [address] [address] Imm gran pct 0.8 % [facility] Comment: Interpretive Data Percent cell count reference ranges are not reported, since discordance with absolute values may lead to misinterpretation of CBC data. Current Interpretive Data was last revised on 2018. Testing performed by: [address] [address] Lymphocyte pct 8.8 % [facility] Comment: Interpretive Data Percent cell count reference ranges are not reported, since discordance with absolute values may lead to misinterpretation of CBC data. Current Interpretive Data was last revised on 2018. Testing performed by: [address] [address] Monocyte pct 13.0 % [facility] Comment: Interpretive Data Percent cell count reference ranges are not reported, since discordance with absolute values may lead to misinterpretation of CBC data. Current Interpretive Data was last revised on 2018. Testing performed by: [address] [address] Eosinophil pct 8.7 % [facility] Comment: Interpretive Data Percent cell count reference ranges are not reported, since discordance with absolute values may lead to misinterpretation of CBC data. Current Interpretive Data was last revised on 2018. Testing performed by: [address] [address] Basophil pct 1.1 % DAYANA CARPIO Comment: Interpretive Data Percent cell count reference ranges are not reported, since discordance with absolute values may lead to misinterpretation of CBC data. Current Interpretive Data was last revised on 2018. Testing performed by: [address] [address] Blood 11/15/2024 4:35 AM [employer] E[employer]MENT COMMANDING OFFICER 11/15/2024 6:15 AM [employer] EQUIPMENT COMMANDING OFFICER us Ivan Vargas MD LAB BLOOD ORDERABLES Final Re sult DAYANA CARPIO [facility]0 [facility] Department [place] [address] * (ABNORMAL) CBC with auto differential (11/15/2024 4:35 AM MOT[employer] E[employer]IPMENT COMMANDING OFFICER) WBC 7.4 3.8 - 9.9 K/cumm Comment:Testing performed by : [address] [address] Hgb 8.6(L) 11.9 - 15.5 g/dL DAYANA CARPIO Comment:Testing performed by : [address] [address] Hct 26.5(L) 35.6 - 45.5 % DAYANA CARPIO Comment:Testing performed by : [address] [address] Plt 238 150 - 400 K/cumm DAYANA CARPIO Comment:Testing performed by : [address] [address] MPV 11.0 9.1 - 12.3 fL DAYANA CARPIO Comment:Testing performed by : [address] [address] RBC 2.59(L) 3.90 - 5.20 M/cumm DAYANA CARPIO Comment:Testing performed by : [address] [address] MCV 102.3(H) 81.3 - 96.4 fL DAYANA Comment:Testing performed by : [address] [address] MCH 33.2 27.1 - 33.3 pg DAYANA CARPIO Comment:Testing performed by : [address] [address] MCHC 32.5 32.3 - 35.7 g/dL DAYANA CARPIO Comment:Testing performed by : [address] [address] RDW CV 16.4(H) 11.1 - 14.9 % DAYANA Comment:Testing performed by : [address], [address] RDW SD 60.1(H) 35.7 - 48.1 fL DAYANA CARPIO Comment:Testing performed by : [address], [address] NRBC abs 0.00 0.00 - 0.01 K/cumm DAYANA Comment:Testing performed by : [address], [address] Blood 11/15/2024 4:35 AM [employer] E[employer]IPMENT COMMANDING OFFICER 11/15/2024 6:15 AM [employer] E[employer]IPMENT COMMANDING OFFICER us Ivan Vargas MD LAB BLOOD ORDERABLES Final Re sult DAYANA [address] [facility] Department of Laboratories [place], [place] [id number] * (ABNORMAL) Protime-INR (11/15/2024 4:35 AM MOT[employer] E[employer]MENT COMMANDING OFFICER) PT 16.8(H) 12.0 - 14.6 sec Comment: Ref Range High Testing performed by: [address] [address] INR 1.4(H) 0.9 - 1.2 DAYANA CARPIO Comment: Ref Range High Interpretive data Oral anticoagulant therapeutic ranges: Venous thromboembolism prophylaxis or treatment: 2.0-3.0 CARDIOLOGY Standard range: 2.0-3.0 High-intensity range: 2.5-3.5 Refer to indication-specific guidelines for appropriate target ranges for prosthetic heart valve replacement. Current interpretive data was last revised on 2019. Testing performed by: [address] [address] Blood 11/15/2024 4:35 AM [employer] E[employer]IPMENT COMMANDING OFFICER 11/15/2024 6:10 AM [employer] EQUIPMENT COMMANDING OFFICER Bravo Mckenzie MD LAB BLOOD ORDERABLES Final Re sult Performing Organization Address [facility] Co de Phone Number [address] [address] * Magnesium (11/15/2024 4:35 AM MOTOR EQUIPMENT COMMANDING OFFICER) Pathologist [facility] Magnesium 1.7 1.4 - 2.5 mg/dL Comment:Testing performed by : [address] [address] Blood 11/15/2024 4:35 AM MOT[employer] EQUIPMENT COMMANDING OFFICER 11/15/2024 6:10 AM [employer] EQUIPMENT COMMANDING OFFICER Ivan Vargas MD LAB BLOOD ORDERABLES Final Re sult Performing Organization Address [facility] de Phone Number [address] [address] * (ABNORMAL) Comprehensive metabolic panel (11/15/2024 4:35 AM MOTOR EQUIPMENT COMMANDING OFFICER) Sodium 135 135 - 145 mmol/L Comment:Testing performed by : [address] [address] Potassium, pl 3.1(L) 3.3 - 4.9 mmol/L DAYANA Comment:Testing performed by : [address] [address] Chloride 89(L) 97 - 110 mmol/L DAYANA Comment:Testing performed by : [address] [address] CO2 27 22 - 32 mmol/L DAYANA Comment:Testing performed by : [address] [address] Anion gap 19(H) 2 - 15 mmol/L [facility] Comment:Testing performed by : [address] [address] BUN 37(H) 6 - 25 mg/dL [facility] Comment:Testing performed by : [address] [address] Creatinine 2.20(H) 0.60 - 1.10 mg/dL [facility] Comment:Testing performed by : [address] [address] Glucose 103 70 - 199 mg/dL [facility] Comment: Interpretive Data Fasting glucose >/= 126 mg/dl is diagnostic for diabetes. Fasting is defined as no caloric intake for at least 8 hours. Fasting glucose between 100 mg/dl to 125 mg/dl is diagnostic of prediabetes. In a patient with classic symptoms of hyperglycemia or hyperglycemic crisis, a random glucose >/= 200 mg/dl is diagnostic for diabetes. In the absence of unequivocal hyperglycemia, results should be confirmed by repeat testing. The classification and Diagnosis of Diabetes Diabetes Care 202; 46: S19-S40. Current interpretive data was last revised 2022. Testing performed by: [address] [address] Calcium 8.4(L) 8.5 - 10.3 mg/dL [facility] Comment:Testing performed by : [address] [address] Bilirubin, total 1.6(H) 0.1 - 1.2 mg/dL [facility] Comment:Testing performed by : [address] [address] Protein, pl 6.1(L) 6.5 - 8.5 g/dL [facility] Comment:Testing performed by : [address] [address] Albumin 3.7 3.5 - 5.0 g/dL [facility] Comment:Testing performed by : [address] [address] Alk phos 267(H) 40 - 130 Units/L [facility] Comment:Testing performed by : [address] [address] ALT 14 7 - 45 Units/L DAYANA CARPIO Comment:Testing performed by : [address] [address] AST 30 10 - 45 Units/L DAYANA CARPIO Comment:Testing performed by : [address] [address] Blood 11/15/2024 4:35 AM [employer] EQUIPMENT COMMANDING OFFICER 11/15/2024 6:10 AM [employer] E[employer]IPMENT COMMANDING OFFICER Ivan Vargas MD LAB BLOOD ORDERABLES Final Re sult Performing Organization Address [facility] Co de Phone Number DAYANA [address] [place] [address] * POCT glucose (11/14/2024 9:28 PM [employer] E[employer] COMMANDING OFFICER) Glucose, POC 138 70 - 199 mg/dL Comment:Testing performed by : [address] [address] Glucose comment 1 Use This Result DAYANA Comment:Testing performed by : [address] [address] Glucose comment 2 RN/MD Notified DAYANA CARPIO Comment:Testing performed by : [address] [address] Blood 11/14/2024 9:28 PM [employer] EQUIPMENT COMMANDING OFFICER 11/14/2024 9:28 PM [employer] EQUIPMENT COMMANDING OFFICER Ivan Vargas MD LAB POCT ORDERABLES - DEVICE Final Result Performing Organization Address [facility]/ZIP Co de Phone Number MARY ALICE[address] [place] [address] * POCT glucose (11/14/2024 5:48 PM MOT[employer] EQUIPMENT COMMANDING OFFICER) Glucose, POC 120 70 - 199 mg/dL Comment:Testing performed by : [address] [address] Glucose comment 1 Use This Result DAYANA Comment:Testing performed by : [facility], [address] [place] [address]., [address] Glucose comment 2 RN/MD Notified DAYANA Comment:Testing performed by : [address] [address] Blood 11/14/2024 5:48 PM [employer] EQUIPMENT COMMANDING OFFICER 11/14/2024 5:48 PM [employer] EQUIPMENT COMMANDING OFFICER Ivan Vargas MD LAB POCT ORDERABLES - DEVICE Final Result Performing Organization Address [facility] Co de Phone Number DAYANA [address] [place] [address] * Sodium, urine, random (11/14/2024 3:29 PM MOT[employer] EQUIPMENT COMMANDING OFFICER) Sodium, ur 42 mmol/L Comment: Interpretive Data No reference range established. Current interpretive data was last revised 2019. Urine 11/14/2024 3:29 PM MOT[employer] EQUIPMENT COMMANDING OFFICER 11/14/2024 6:41 PM MOT[employer] EQUIPMENT COMMANDING OFFICER Bravo Mckenzie MD LAB URINE ORDERABLES Final Re sult Performing Organization Address [facility] de Phone Number MARY ALICE[address] [place] [address] * (ABNORMAL) Urinalysis reflex to microscopic and culture Urine, clean voided (11/14/2024 3:28 PM MOT[employer] EQUIPMENT COMMANDING OFFICER) Color, ur Yellow Yellow Comment:Testing performed by : [address] [address] Clarity, ur Clear Clear DAYANA Comment:Testing performed by : [address] [address] Specific gravity, ur 1.018 1.003 - 1.030 DAYANA Comment:Testing performed by : [address] [address] pH, urine 5.5 DAYANA Comment: Interpretive Data U rine pH is affected by diet, medications, systemic acid-base disturbances, and renal tubular function. pH may affect urinary stone formation. For example, urine pH below 6.0 may help reduce the tendency for calcium phosphate stones and pH greater than 6.0 may reduce the tendency for uric acid stone formation. Source: [facility] Current Interpretive Data was last revised on 2017 Testing performed by: [facility], [address] [place] [address]., [address] Protein, ur ql Negative Negative DAYANA Comment:Testing performed by : [address] [address] Glucose, ur ql 1+(A) Negative DAYANA Comment:Testing performed by : [address], [place]., [address] Ketones, ur Negative Negative DAYANA Comment:Testing performed by : [address] [address] Bilirubin, ur Negative Negative DAYANA Comment:Testing performed by : [address], [place]., [address] Blood, ur Negative Negative DAYANA Comment:Testing performed by : [address], [place]., [address] Urobilinogen, ur <2.0 <2.0 mg/dL DAYANA Comment:Testing performed by : [address] [address] Nitrite, ur Negative Negative DAYANA Comment:Testing performed by : [address] [address] Leukocyte esterase, ur Negative Negative DAYANA Comment:Testing performed by : [address] [address] UA reflex comment Reflex conditions for microscopic UA and culture not met. DAYANA Comment:Testing performed by : [address] [address] Urine, clean voided 11/14/2024 3:28 PM [employer] E[employer]IPMENT COMMANDING OFFICER 11/14/2024 3:49 PM [employer] EQUIPMENT COMMANDING OFFICER us Ivan Vargas MD LAB MICROBIOLOGY - GENERAL OR DERABLES Final Result DAYANA 0582 [facility] Department [place] [address] * Ammonia (11/14/2024 2:16 PM [employer] EQU[employer]MENT COMMANDING OFFICER) Ammonia 34 <=50 mcmol/L Comment: Please note on 02/21/2024 the unit of measure changed from mcg/dL to mcmol/L. Current Interpretive Data was last revised on 2024 Testing performed by: [address] [address] Blood 11/14/2024 2:16 PM [employer] EQUIPMENT COMMANDING OFFICER 11/14/2024 2:22 PM [employer] EQUIPMENT COMMANDING OFFICER Ivan Vargas MD LAB BLOOD ORDERABLES Final Re sult Performing Organization Address [facility] Co de Phone Number DAYANA [facility] [place] [address] * POCT glucose (11/14/2024 11:21 AM MOT[employer] EQUIPMENT COMMANDING OFFICER) Glucose, POC 129 70 - 199 mg/dL Comment:Testing performed by : [address] [address] Glucose comment 1 Use This Result DAYANA CARPIO Comment:Testing performed by : [address] [address] Glucose comment 2 RN/MD Notified DAYANA CARPIO Comment:Testing performed by : [address] [address] Blood 11/14/2024 11:2 1 AM [employer] EQUIPMENT COMMANDING OFFICER 11/14/2024 11:21 AM [employer] EQUIPMENT COMMANDING OFFICER Ivan Vargas MD LAB POCT ORDERABLES - DEVICE Final Result Performing Organization Address City/[facility]/ZIP Co de Phone Number DAYANA [address] [address] * POCT glucose (11/14/2024 8:11 AM MOTOR EQUIPMENT COMMANDING OFFICER) Glucose, POC 107 70 - 199 mg/dL Comment:Testing performed by : [address] [address] Glucose comment 1 Use This Result DAYANA Comment:Testing performed by : [facility], [address] [place] [address]., [address] Blood 11/14/2024 8:11 AM MOTOR EQUIPMENT COMMANDING OFFICER 11/14/2024 8:11 AM MOTOR EQUIPMENT COMMANDING OFFICER Ivan Vargas MD LAB POCT ORDERABLES - DEVICE Final Result Performing Organization Address [facility] Co de Phone Number DAYANA [facility] [place] [address] * (ABNORMAL) eGFR (11/14/2024 5:03 AM MOTOR EQUIPMENT COMMANDING OFFICER) eGFR 24(L) >=60 mL/min/1. 73 m2 Comment: Interpretive Data Reference Interval Normal >/= 90 mL/min/1.73m2 Mildly decreased* 60 - 89 mL/min/1.73m2 Mildly to moderately decreased 45 - 59 mL/min/1.73m2 Moderately to severely decreased 30 - 44 mL/min/1.73m2 Severely decreased 15 - 29 mL/min/1.73m2 Kidney Failure < 15 mL/min/1.73m2 *Relative to young adult level Estimated glomerular filtration rate is determined by the 2020 CKD-EPI equation recommended by the National Kidney Foundation (A Unifying Approach to GFR Estimation: Recommendations of the NKF-ASK Task Force on Reassessing the Inclusion of Race in Diagnosing Kidney Disease, JASN 2020). The CKD-EPI equation should not be used for patients with unstable renal function and has not been validated in children and those over 70. Current interpretive data was last reviewed 2021. Testing performed by: [facility], [address] [place] [address]., [address] Blood 11/14/2024 5:03 AM MOTOR EQUIPMENT COMMANDING OFFICER 11/14/2024 5:33 AM MOTOR EQUIPMENT COMMANDING OFFICER us Ivan Vargas MD LAB BLOOD ORDERABLES Final Re sult Performing Organization Address [facility]/ZIP Co de Phone Number DAYANA [facility] [place] [address] * (ABNORMAL) Differential, auto (11/14/2024 5:03 AM MOTOR EQUIPMENT COMMANDING OFFICER) Neutrophil abs 4.8 1.5 - 6.5 K/cumm Comment:Testing performed by : [address] [address] Imm gran abs 0.0 0.0 - 0.1 K/cumm DAYANA Comment:Testing performed by : [address] [address] Lymphocyte abs 0.7(L) 0.8 - 3.3 K/cumm DAYANA Comment:Testing performed by : [address] [address] Monocyte abs 1.0(H) 0.2 - 0.8 K/cumm DAYANA Comment:Testing performed by : [address] [address] Eosinophil abs 0.7(H) 0.0 - 0.5 K/cumm DAYANA Comment:Testing performed by : [address] [address] Basophil abs 0.1 0.0 - 0.1 K/cumm [facility] Comment:Testing performed by : [address] [address] Neutrophil pct 65.6 % [facility] Comment: Interpretive Data Percent cell count reference ranges are not reported, since discordance with absolute values may lead to misinterpretation of CBC data. Current Interpretive Data was last revised on 2018. Testing performed by: [address] [address] Imm gran pct 0.4 % [facility] Comment: Interpretive Data Percent cell count reference ranges are not reported, since discordance with absolute values may lead to misinterpretation of CBC data. Current Interpretive Data was last revised on 2018. Testing performed by: [address] [address] Lymphocyte pct 10.0 % [facility] Comment: Interpretive Data Percent cell count reference ranges are not reported, since discordance with absolute values may lead to misinterpretation of CBC data. Current Interpretive Data was last revised on 2018. Testing performed by: [address] [address] Monocyte pct 13.4 % DAYANA Comment: Interpretive Data Percent cell count reference ranges are not reported, since discordance with absolute values may lead to misinterpretation of CBC data. Current Interpretive Data was last revised on 2018. Testing performed by: [address] [address] Eosinophil pct 9.4 % DAYANA Comment: Interpretive Data Percent cell count reference ranges are not reported, since discordance with absolute values may lead to misinterpretation of CBC data. Current Interpretive Data was last revised on 2018. Testing performed by: [address] [address] Basophil pct 1.2 % DAYANA Comment: Interpretive Data Percent cell count reference ranges are not reported, since discordance with absolute values may lead to misinterpretation of CBC data. Current Interpretive Data was last revised on 2018. Testing performed by: [address] [address] Blood 11/14/2024 5:03 AM MOTOR EQUIPMENT COMMANDING OFFICER 11/14/2024 5:34 AM MOTOR EQUIPMENT COMMANDING OFFICER us Ivan Vargas MD LAB BLOOD ORDERABLES Final Re sult [facility] [address] [facility] Department of Laboratories [place], [place] [id number] * (ABNORMAL) CBC with auto differential (11/14/2024 5:03 AM MOTOR EQUIPMENT COMMANDING OFFICER) WBC 7.3 3.8 - 9.9 K/cumm Comment:Testing performed by : [address] [address] Hgb 8.5(L) 11.9 - 15.5 g/dL DAYANA Comment:Testing performed by : [address] [address] Hct 26.2(L) 35.6 - 45.5 % DAYANA Comment:Testing performed by : [address] [address] Plt 212 150 - 400 K/cumm DAYANA CARP[facility] Comment:Testing performed by : [address] [address] MPV 10.7 9.1 - 12.3 fL DAYANA [facility] Comment:Testing performed by : [address] [address] RBC 2.57(L) 3.90 - 5.20 M/cumm DAYANA CARP[facility] Comment:Testing performed by : [address] [address] MCV 101.9(H) 81.3 - 96.4 fL DAYANA CARPIO Comment:Testing performed by : [address] [address] MCH 33.1 27.1 - 33.3 pg DAYANA CARPIO Comment:Testing performed by : [address], [address] MCHC 32.4 32.3 - 35.7 g/dL DAYANA Comment:Testing performed by : [address] [address] RDW CV 16.8(H) 11.1 - 14.9 % DAYANA Comment:Testing performed by : [address] [address] RDW SD 60.4(H) 35.7 - 48.1 fL DAYANA Comment:Testing performed by : [address] [address] NRBC abs 0.00 0.00 - 0.01 K/cumm DAYANA CARPIO Comment:Testing performed by : [address] [address] Blood 11/14/2024 5:03 AM MOTOR EQUIPMENT COMMANDING OFFICER 11/14/2024 5:34 AM MOTOR EQUIPMENT COMMANDING OFFICER us Ivan Vargas MD LAB BLOOD ORDERABLES Final Re sult DAYANA [address] [facility] Department [place] [address] * (ABNORMAL) Comprehensive metabolic panel (11/14/2024 5:03 AM MOTOR EQUIPMENT COMMANDING OFFICER) Sodium 135 135 - 145 mmol/L Comment:Testing performed by : [address] [address] Potassium, pl 3.5 3.3 - 4.9 mmol/L DAYANA Comment:Testing performed by : [address] [address] Chloride 91(L) 97 - 110 mmol/L DAYANA Comment:Testing performed by : [address] [address] CO2 28 22 - 32 mmol/L DAYANA Comment:Testing performed by : [address] [address] Anion gap 16(H) 2 - 15 mmol/L DAYANA Comment:Testing performed by : [address] [address] BUN 33(H) 6 - 25 mg/dL DAYANA Comment:Testing performed by : [address] [address] Creatinine 2.20(H) 0.60 - 1.10 mg/dL DAYANA Comment:Testing performed by : [address] [address] Glucose 94 70 - 199 mg/dL DAYANA Comment: Interpretive Data Fasting glucose >/= 126 mg/dl is diagnostic for diabetes. Fasting is defined as no caloric intake for at least 8 hours. Fasting glucose between 100 mg/dl to 125 mg/dl is diagnostic of prediabetes. In a patient with classic symptoms of hyperglycemia or hyperglycemic crisis, a random glucose >/= 200 mg/dl is diagnostic for diabetes. In the absence of unequivocal hyperglycemia, results should be confirmed by repeat testing. The classification and Diagnosis of Diabetes Diabetes Care 202; 46: S19-S40. Current interpretive data was last revised 2022. Testing performed by: [address] [address] Calcium 8.3(L) 8.5 - 10.3 mg/dL DAYANA Comment:Testing performed by : [address] [address] Bilirubin, total 1.4(H) 0.1 - 1.2 mg/dL DAYANA Comment:Testing performed by : [address] [address] Protein, pl 6.0(L) 6.5 - 8.5 g/dL DAYANA Comment:Testing performed by : [address] [address] Albumin 3.6 3.5 - 5.0 g/dL DAYANA Comment:Testing performed by : [address] [address] Alk phos 256(H) 40 - 130 Units/L DAYANA Comment:Testing performed by : [address] [address] ALT 17 7 - 45 Units/L DAYANA Comment:Testing performed by : [address] [address] AST 30 10 - 45 Units/L DAYANA Comment:Testing performed by : [address] [address] Blood 11/14/2024 5:03 AM MOTOR EQUIPMENT COMMANDING OFFICER 11/14/2024 5:33 AM MOTOR EQUIPMENT COMMANDING OFFICER Ivan Vargas MD LAB BLOOD ORDERABLES Final Re sult [facility] [address] [facility] Department of Laboratories [place], [place] [id number] * POCT glucose (11/14/2024 4:41 AM MOTOR EQUIPMENT COMMANDING OFFICER) Glucose, POC 121 70 - 199 mg/dL Comment:Testing performed by : [address] [address] Glucose comment 1 Use This Result DAYANA CARPIO Comment:Testing performed by : [address] [address] Blood 11/14/2024 4:41 AM MOTOR EQUIPMENT COMMANDING OFFICER 11/14/2024 4:41 AM MOTOR EQUIPMENT COMMANDING OFFICER Ivan Vargas MD LAB POCT ORDERABLES - DEVICE Final Result Performing Organization Address [facility] Co de Phone Number DAYANA [address] [place] [address] * POCT glucose (11/13/2024 7:59 PM MOTOR EQUIPMENT COMMANDING OFFICER) Glucose, POC 155 70 - 199 mg/dL Comment:Testing performed by : [address] [address] Glucose comment 1 Use This Result DAYANA Comment:Testing performed by : [address] [address] Blood 11/13/2024 7:59 PM MOTOR EQUIPMENT COMMANDING OFFICER 11/13/2024 7:59 PM MOTOR EQUIPMENT COMMANDING OFFICER Ivan Vargas MD LAB POCT ORDERABLES - DEVICE Final Result Performing Organization Address [facility] de Phone Number DAYANA [address] [address] * POCT glucose (11/13/2024 5:16 PM MOTOR EQUIPMENT COMMANDING OFFICER) Glucose, POC 131 70 - 199 mg/dL Comment:Testing performed by : [address] [address] Glucose comment 1 Use This Result DAYANA Comment:Testing performed by : [address] [address] Glucose comment 2 RN/MD Notified DAYANA Comment:Testing performed by : [address] [address] Blood 11/13/2024 5:16 PM MOTOR EQUIPMENT COMMANDING OFFICER 11/13/2024 5:16 PM MOTOR EQUIPMENT COMMANDING OFFICER Ivan Vargas MD LAB POCT ORDERABLES - DEVICE Final Result Performing Organization Address [facility] Co de Phone Number MARY ALICENIKOS [address] [address] * CT Knee Left WO Contrast (11/13/2024 4:52 PM MOTOR EQUIPMENT COMMANDING OFFICER) Anatomical Region Laterality Modality Lower Extremities Left Computed Tomog marquis 11/13/2024 5:29 PM MOTOR EQUIPMENT COMMANDING OFFICER Narrative 11/13/2024 5:36 PM MOTOR EQUIPMENT COMMANDING OFFICER EXAM DESCRIPTION: CT KNEE LEFT WO CONTRAST REASON FOR STUDY: trauma and swelling Best attempt pt had to be rolled on side to get knee into an ap position. Knee bent pt unable to straighten knee. Pt had aspiration of knee today, TECHNIQUE: Multidetector CT scan of the left knee was performed. coronal and sagittal images were reconstructed. Dose modulation adjustment of the mA and/or kV has been performed per [facility] protocols according to patient size and indication. COMPARISON: Radiograph dated November 13, 2024 FINDINGS: Bones: There is a old distal femoral fracture status post open reduction internal fixation with lateral orthopedic plate and screws. Orthopedic hardware projects in a customary fashion without complication. There is a subtle nondisplaced fracture of the medial tibial plateau anteriorly without significant displacement.. The tibia is otherwise intact. The proximal fibula is intact. Soft Tissues: Moderate lipohemarthrosis. Moderate fatty atrophy of the posterior compartment. Circumferential cutaneous thickening and subcutaneous edema. Extensive vascular calcifications. Other: No other finding. IMPRESSION: Subtle nondisplaced fracture of the medial tibial plateau anteriorly without significant displacement. Moderate lipohemarthrosis. Old distal femoral fracture status post open reduction internal fixation with lateral orthopedic plate and screws. Orthopedic hardware projects in a customary fashion without complication. Moderate fatty atrophy of the posterior compartment. Circumferential cutaneous thickening and subcutaneous edema. THIS IS AN ELECTRONICALLY VERIFIED FINAL REPORT 11/13/2024 5:36 PM - Electronically signed by Ed Ny M.D. JA: BETH Report ID: [id number] Reading Location: [id number] Procedure Note Ed Ny MD - 11/13/2024 EXAM DESCRIPTION: CT KNEE LEFT WO CONTRAST REASON FOR STUDY: trauma and swelling Best attempt pt had to be rolled on side to get knee into an ap position.Knee bent pt unable to straighten knee. Pt had aspiration of knee today, TECHNIQUE: Multidetector CT scan of the left knee was performed. coronal and sagittal images were reconstructed. Dose modulation adjustment of the mA and/or kV has been performed per [facility] protocols according to patient size and indication. COMPARISON: Radiograph dated November 13, 2024 FINDINGS: Bones: There is a old distal femoral fracture status post open reduction internal fixation with lateral orthopedic plate and screws. Orthopedic hardware projects in a customary fashion withoutcomplication. There is a subtle nondisplaced fracture of the medial tibial plateau anteriorly without significant displacement.. The tibia is otherwiseintact. The proximal fibula is intact. Soft Tissues: Moderate lipohemarthrosis. Moderate fatty atrophy of the posterior compartment. Circumferential cutaneous thickening andsubcutaneous edema. Extensive vascular calcifications. Other: No other finding. IMPRESSION: Subtle nondisplaced fracture of the medial tibial plateau anteriorlywithout significant displacement. Moderate lipohemarthrosis. Old distal femoral fracture status post open reduction internal fixationwith lateral orthopedic plate and screws. Orthopedic hardware projects in a customary fashion without complication. Moderate fatty atrophy of the posterior compartment. Circumferential cutaneous thickening and subcutaneous edema. THIS IS AN ELECTRONICALLY VERIFIED FINAL REPORT 11/13/2024 5:36 PM - Electronically signed by Ed Ny M.D. JA: BETH Report ID: [id number] Reading Location: [place] [address] us Ivan Vargas MD IMG CT PROCEDURES Final Resul t * US Chest (11/13/2024 2:21 PM MOTOR EQUIPMENT COMMANDING OFFICER) Anatomical Region Laterality Modality Chest N/A Ultrasound 11/13/2024 4:29 PM MOTOR EQUIPMENT COMMANDING OFFICER Narrative 11/13/2024 4:32 PM MOTOR EQUIPMENT COMMANDING OFFICER EXAM DESCRIPTION: US CHEST REASON FOR STUDY: Right pleural effusion, assess for loculations TECHNIQUE: A Dynamic assessment was performed of the right chest by the credit front office developer, with selected grayscale images acquired and recorded in PACS. COMPARISON: CT from 11/11/2024. FINDINGS: There is a right pleural effusion. Area of atelectatic or consolidated lung is noted. No loculations were seen within the pleural effusion. IMPRESSION: Right pleural effusion. No loculation identified. THIS IS AN ELECTRONICALLY VERIFIED FINAL REPORT 11/13/2024 4:32 PM - Electronically signed by Will Stahl M.D. MZ: MZ Report ID: [id number] Reading Location: [id number] Procedure Note Will Stahl MD - 11/13/2024 EXAM DESCRIPTION: US CHEST REASON FOR STUDY: Right pleural effusion, assess for loculations TECHNIQUE: A Dynamic assessment was performed of the right chest by the credit front office developer, with selected grayscale images acquired and recorded in PACS. COMPARISON: CT from 11/11/2024. FINDINGS: There is a right pleural effusion. Area of atelectatic or consolidated lung is noted. No loculations were seen within the pleural effusion. IMPRESSION: Right pleural effusion. No loculation identified. THIS IS AN ELECTRONICALLY VERIFIED FINAL REPORT 11/13/2024 4:32 PM - Electronically signed by Will Stahl M.D. MZ: MZ Report ID: [id number] Reading Location: [place] [address] us Ivan Vargas MD IM US PROCEDURES Final Resul t * POCT glucose (11/13/2024 2:13 PM MOTOR EQUIPMENT COMMANDING OFFICER) [facility] Signature Glucose, POC 127 70 - 199 mg/dL Comment:Testing performed by : [address] [address] Glucose comment 1 Use This Result DAYANA CARPIO Comment:Testing performed by : [address] [address] Glucose comment 2 RN/MD Notified DAYANA CARPIO Comment:Testing performed by : [address] [address] Blood 11/13/2024 2:13 PM MOTOR EQUIPMENT COMMANDING OFFICER 11/13/2024 2:13 PM MOTOR EQUIPMENT COMMANDING OFFICER us Ivan Vargas MD LAB POCT ORDERABLES - DEVICE Final Result DAYANA [address] [facility] Department [place] [address] * FL Fluoro Guided Aspiration Knee Left (11/13/2024 1:30 PM MOTOR EQUIPMENT COMMANDING OFFICER) Anatomical Region Laterality Modality Knee Left Computed Radiogr aphy, Computed Radiography 11/13/2024 1:57 PM MOTOR EQUIPMENT COMMANDING OFFICER Narrative 11/13/2024 2:11 PM MOTOR EQUIPMENT COMMANDING OFFICER EXAM DESCRIPTION: FL FLUORO GUIDED ASPIRATION KNEE LEFT REASON FOR STUDY: swelling, effusion. r/o hemarthrosis, septic arthritis or inflammatory arthritis, swelling, effusion. r/o hemarthosis, septic arthritis or inflammatory arthritis COMPARISON: 11/12/2027 RADIATION DOSE: Dose: 1.0 mGy Reference Air Kerma (Ka,r) TECHNIQUE/FINDINGS: Risks, benefits, and alternatives of procedure were explained to the patient and informed consent was obtained. The anterior surface of the knee was prepped and draped in the usual sterile fashion. The patient's knee was partially flexed . An infrapatellar approach was selected. Once the needle tip was felt to slide under the inferior pole of the patella, attempt to aspirate was made. No fluid was aspirated. Needle tip was repositioned multiple times including lateral subpatellar approach, AP approach lateral condyle and AP approach medical condyle. A small amount of contrast was injected to evaluate for intra-articular positioning during repositions some of which showed extra-articular injection. When there appeared to be intra-articular injection repeat attempt to aspirate was performed. No fluid could be aspirated. The procedure was then stopped. The patient tolerated the procedure well. IMPRESSION: Attempted left knee aspiration. No fluid could be aspirated. THIS IS AN ELECTRONICALLY VERIFIED FINAL REPORT 11/13/2024 2:11 PM - Electronically signed by Kedar Corrales M.D. MM: MM Report ID: [id number] Reading Location: [id number] Procedure Note Kedar Corrales MD - 11/13/2024 EXAM DESCRIPTION: FL FLUORO GUIDED ASPIRATION KNEE LEFT REASON FOR STUDY: swelling, effusion. r/o hemarthrosis, septic arthritisor inflammatory arthritis, swelling, effusion. r/o hemarthosis, septicarthritis or inflammatory arthritis COMPARISON: 11/12/2027 RADIATION DOSE: Dose: 1.0 mGy Reference Air Kerma (Ka,r) TECHNIQUE/FINDINGS: Risks, benefits, and alternatives of procedure were explained to the patient and informed consent was obtained. The anterior surface of the knee was prepped and draped in the usual sterile fashion.The patient's knee was partially flexed . An infrapatellar approach wasselected. Once the needle tip was felt to slide under the inferior pole of thepatella, attempt to aspirate was made. No fluid was aspirated. Needle tip was repositioned multiple times including lateral subpatellar approach, AP approach lateral condyle and AP approach medical condyle. A small amountof contrast was injected to evaluate for intra-articular positioning during repositions some of which showed extra-articular injection. When there appeared to be intra-articular injection repeat attempt to aspirate was performed. No fluid could be aspirated. The procedure was then stopped.The patient tolerated the procedure well. IMPRESSION: Attempted left knee aspiration. No fluid could be aspirated. THIS IS AN ELECTRONICALLY VERIFIED FINAL REPORT 11/13/2024 2:11 PM - Electronically signed by Kedar Corrales M.D. MM: MM Report ID: [id number] Reading Location: [id number] us Ivan Vargas MD IMG FLUOROSCOPY PROCEDURES Fi nal Result * (ABNORMAL) eGFR (11/13/2024 9:02 AM MOTOR EQUIPMENT COMMANDING OFFICER) eGFR 34(L) >=60 mL/min/1. 73 m2 Comment: Interpretive Data Reference Interval Normal >/= 90 mL/min/1.73m2 Mildly decreased* 60 - 89 mL/min/1.73m2 Mildly to moderately decreased 45 - 59 mL/min/1.73m2 Moderately to severely decreased 30 - 44 mL/min/1.73m2 Severely decreased 15 - 29 mL/min/1.73m2 Kidney Failure < 15 mL/min/1.73m2 *Relative to young adult level Estimated glomerular filtration rate is determined by the 2020 CKD-EPI equation recommended by the National Kidney Foundation (A Unifying Approach to GFR Estimation: Recommendations of the NKF-ASK Task Force on Reassessing the Inclusion of Race in Diagnosing Kidney Disease, JASN 2020). The CKD-EPI equation should not be used for patients with unstable renal function and has not been validated in children and those over 70. Current interpretive data was last reviewed 2021. Testing performed by: [address] [address] Blood 11/13/2024 9:02 AM MOTOR EQUIPMENT COMMANDING OFFICER 11/13/2024 10:02 AM MOTOR EQUIPMENT COMMANDING OFFICER us Ivan Vargas MD LAB BLOOD ORDERABLES Final Re sult [facility]9 [facility] Department of Laboratories [place], [place] [id number] * (ABNORMAL) Differential, auto (11/13/2024 9:02 AM MOTOR EQUIPMENT COMMANDING OFFICER) Neutrophil abs 4.3 1.5 - 6.5 K/cumm Comment:Testing performed by : [address] [address] Imm gran abs 0.0 0.0 - 0.1 K/cumm DAYANA Comment:Testing performed by : [address] [address] Lymphocyte abs 0.7(L) 0.8 - 3.3 K/cumm DAYANA Comment:Testing performed by : [address] [address] Monocyte abs 0.9(H) 0.2 - 0.8 K/cumm DAYANA Comment:Testing performed by : [address] [address] Eosinophil abs 0.4 0.0 - 0.5 K/cumm DAYANA Comment:Testing performed by : [address] [address] Basophil abs 0.1 0.0 - 0.1 K/cumm DAYANA Comment:Testing performed by : [address] [address] Neutrophil pct 66.9 % [facility] Comment: Interpretive Data Percent cell count reference ranges are not reported, since discordance with absolute values may lead to misinterpretation of CBC data. Current Interpretive Data was last revised on 2018. Testing performed by: [address] [address] Imm gran pct 0.6 % DAYANA Comment: Interpretive Data Percent cell count reference ranges are not reported, since discordance with absolute values may lead to misinterpretation of CBC data. Current Interpretive Data was last revised on 2018. Testing performed by: [address] [address] Lymphocyte pct 11.6 % [facility] Comment: Interpretive Data Percent cell count reference ranges are not reported, since discordance with absolute values may lead to misinterpretation of CBC data. Current Interpretive Data was last revised on 2018. Testing performed by: [address] [address] Monocyte pct 14.3 % [facility] Comment: Interpretive Data Percent cell count reference ranges are not reported, since discordance with absolute values may lead to misinterpretation of CBC data. Current Interpretive Data was last revised on 2018. Testing performed by: [address] [address] Eosinophil pct 5.5 % [facility] Comment: Interpretive Data Percent cell count reference ranges are not reported, since discordance with absolute values may lead to misinterpretation of CBC data. Current Interpretive Data was last revised on 2018. Testing performed by: [address] [address] Basophil pct 1.1 % [facility] Comment: Interpretive Data Percent cell count reference ranges are not reported, since discordance with absolute values may lead to misinterpretation of CBC data. Current Interpretive Data was last revised on 2018. Testing performed by: [address] [place]., [address] Blood 11/13/2024 9:02 AM MOTOR EQUIPMENT COMMANDING OFFICER 11/13/2024 10:03 AM MOTOR EQUIPMENT COMMANDING OFFICER us Ivan Vargas MD LAB BLOOD ORDERABLES Final Re sult [facility] [address] [facility] Department [place] [address] * (ABNORMAL) CBC with auto differential (11/13/2024 9:02 AM MOTOR EQUIPMENT COMMANDING OFFICER) WBC 6.4 3.8 - 9.9 K/cumm Comment:Testing performed by : [address] [address] Hgb 8.4(L) 11.9 - 15.5 g/dL DAYANA Comment:Testing performed by : [address] [address] Hct 25.2(L) 35.6 - 45.5 % DAYANA Comment:Testing performed by : [address] [address] Plt 196 150 - 400 K/cumm DAYANA Comment:Testing performed by : [address] [address] MPV 10.5 9.1 - 12.3 fL DAYANA Comment:Testing performed by : [address] [address] RBC 2.52(L) 3.90 - 5.20 M/cumm DAYANA Comment:Testing performed by : [address] [address] MCV 100.0(H) 81.3 - 96.4 fL DAYANA Comment:Testing performed by : [address] [address] MCH 33.3 27.1 - 33.3 pg DAYANA CARPIO Comment:Testing performed by : [address] [address] MCHC 33.3 32.3 - 35.7 g/dL DAYANA CARPIO Comment:Testing performed by : [address] [address] RDW CV 16.8(H) 11.1 - 14.9 % DAYANA Comment:Testing performed by : [address] [address] RDW SD 59.5(H) 35.7 - 48.1 fL DAYANA Comment:Testing performed by : [address] [address] NRBC abs 0.00 0.00 - 0.01 K/cumm DAYANA Comment:Testing performed by : [address] [address] Blood 11/13/2024 9:02 AM [employer]ING [employer]ICER 11/13/2024 10:03 AM [employer]ING OFFICER Ivan Vargas MD LAB BLOOD ORDERABLES Final Re sult Performing Organization Address [facility] Co de Phone Number MARY ALICE[address] [employer] [place] [address] * Magnesium (11/13/2024 9:02 AM [employer] COMMANDING OFFICER) Pathologist [facility] Magnesium 1.5 1.4 - 2.5 mg/dL Comment:Testing performed by : [address] [address] Blood 11/13/2024 9:02 AM [employer] COMMANDING OFFICER 11/13/2024 10:02 AM [employer] COMMANDING OFFICER Ivan Vargas MD LAB BLOOD ORDERABLES Final Re sult Performing Organization Address City/[facility]/ZIP Co de Phone Number [address] [address] * (ABNORMAL) Comprehensive metabolic panel (11/13/2024 9:02 AM [employer] COMMANDING OFFICER) Sodium 135 135 - 145 mmol/L Comment:Testing performed by : [address] [address] Potassium, pl 3.6 3.3 - 4.9 mmol/L MARY ALICENIKOS Comment:Testing performed by : [address] [address] Chloride 92(L) 97 - 110 mmol/L CERNIKOS Comment:Testing performed by : [address], [place]., [address] CO2 29 22 - 32 mmol/L CERNIKOS Comment:Testing performed by : [address] [address] Anion gap 14 2 - 15 mmol/L [facility] Comment:Testing performed by : [address], [place]., [address] BUN 28(H) 6 - 25 mg/dL [facility] Comment:Testing performed by : [address] [address] Creatinine 1.60(H) 0.60 - 1.10 mg/dL [facility] Comment:Testing performed by : [address] [address] Glucose 114 70 - 199 mg/dL [facility] Comment: Interpretive Data Fasting glucose >/= 126 mg/dl is diagnostic for diabetes. Fasting is defined as no caloric intake for at least 8 hours. Fasting glucose between 100 mg/dl to 125 mg/dl is diagnostic of prediabetes. In a patient with classic symptoms of hyperglycemia or hyperglycemic crisis, a random glucose >/= 200 mg/dl is diagnostic for diabetes. In the absence of unequivocal hyperglycemia, results should be confirmed by repeat testing. The classification and Diagnosis of Diabetes Diabetes Care 202; 46: S19-S40. Current interpretive data was last revised 2022. Testing performed by: [address] [address] Calcium 8.9 8.5 - 10.3 mg/dL [facility] Comment:Testing performed by : [address] [address] Bilirubin, total 1.5(H) 0.1 - 1.2 mg/dL [facility] Comment:Testing performed by : [address] [address] Protein, pl 5.7(L) 6.5 - 8.5 g/dL DAYANA CARPIO Comment:Testing performed by : [address] [address] Albumin 3.3(L) 3.5 - 5.0 g/dL DAYANA CARPIO Comment:Testing performed by : [address] [address] Alk phos 272(H) 40 - 130 Units/L DAYANA CARPIO Comment:Testing performed by : [address] [address] ALT 19 7 - 45 Units/L DAYANA Comment:Testing performed by : [address] [address] AST 36 10 - 45 Units/L DAYANA CARPIO Comment:Testing performed by : [address] [address] Blood 11/13/2024 9:02 AM [employer]ING OFFICER 11/13/2024 10:02 AM [employer] COMMANDING OFFICER Ivan Vargas MD LAB BLOOD ORDERABLES Final Re sult DAYANA [address] [address] * POCT glucose (11/13/2024 8:00 AM [employer] COMMANDING OFFICER) [facility] Glucose, POC 128 70 - 199 mg/dL Comment:Testing performed by : [address] [address] Glucose comment 1 Use This Result DAYANA CARPIO Comment:Testing performed by : [address] [address] Glucose comment 2 RN/MD Notified DAYANA Comment:Testing performed by : [address] [address] Blood 11/13/2024 8:00 AM [employer] COMMANDING OFFICER 11/13/2024 8:00 AM [employer] COMMANDING OFFICER Ivan Vargas MD LAB POCT ORDERABLES - DEVICE Final Result DAYANA MH [address] [place] [id number] * Strep pneumoniae antigen, urine Urine (11/13/2024 12:28 AM [employer] COMMANDING OFFICER) [facility] S. pneumoniae Ag Negative Negative Comment: Interpretive Data A positive result is indicative of pneumococcal pneumonia in patients with severe CAP. Cross-reactivity with closely related Streptococcus bacteria may occur. A negative result suggests no current or recent pneumococcal infection but cannot rule out infection with S. pneumoniae. The results of this testing should be used in conjunction with clinical findings and other diagnostic testing, including microbiologic culture. Current Interpretive Data was last revised on 2022 Urine 11/13/2024 12:2 8 AM [employer] COMMANDING OFFICER 11/13/2024 2:18 AM [employer] COMMANDING OFFICER Tino Lynne MD LAB MICROBIOLOGY - G ENERAL ORDERABLES Final Result Performing Organization Address City/[facility] Co de Phone Number MARY ALICE[address] [address] * Legionella antigen Urine (11/13/2024 12:28 AM [employer] COMMANDING OFFICER) [facility] Legionella Ag Negative Negative Comment: Interpretive Data This test detects only Legionella pneumophila serogroup 1 antigen. Testing performed by [facility] ([phone]). Current interpretive data was last revised on 2020. Testing performed by: [facility], [address] [place]., [address] Urine 11/13/2024 12:2 8 AM [employer] COMMANDING OFFICER 11/13/2024 3:19 AM [employer] COMMANDING OFFICER Tino Lynne MD LAB MICROBIOLOGY - G ENERAL ORDERABLES Final Result MARY ALICE[address] [address] * (ABNORMAL) POCT glucose (11/12/2024 10:04 PM [employer] COMMANDING OFFICER) Glucose, POC 207(H) 70 - 199 mg/dL Comment:Testing performed by : [facility], [address] [place] [address]., [address] Glucose comment 1 Use This Result DAYANA CARPIO Comment:Testing performed by : [facility], [address] [place] [address]., [address] Blood 11/12/2024 10:0 4 PM [employer]ING OFFICER 11/12/2024 10:04 PM [employer] COMMANDING OFFICER us Ivan Vargas MD LAB POCT ORDERABLES - DEVICE Final Result DAYANA CARPIO [address] [facility] Department [place] [address] * TRANSTHORACIC ECHO (TTE) COMPLETE W DOPPLER/CF WO CONTRAST (11/12/2024 4:14 PM [employer] COMMANDING OFFICER) Anatomical Region Laterality Modality Ultrasound 11/12/2024 3:49 PM [employer] COMMANDING OFFICER Narrative 11/12/2024 6:37 PM [employer] COMMANDING OFFICER Adult Echocardiogram + ----- + :Name: LOU ISLAS Study Date: 11/12/2024 Status: MHE : : Patient Location: [address]^[id number]^MHeight: 65 in : : Weight: 179 lbBP: 106/55 mmHg: :: 1955 Gender: Female BSA: 1.9 m2 : :Reason For Study: possible CHF : :Ordering Physician: : :IVAN VARGAS : : : :Performed By: Danette : :Jun RCS : + ----- + Procedure A two-dimensional transthoracic echocardiogram with color flow and Doppler was performed. Left Ventricle The left ventricle is normal in size. There is normal left ventricular wall thickness. Left ventricular systolic function is normal. Ejection Fraction = 55-60%. The left ventricular wall motion is normal. Right Ventricle The right ventricle is normal size. There is normal right ventricular wall thickness. The right ventricular systolic function is normal. Atria The left atrium is moderately dilated. Right atrial size is normal. Mitral Valve There is moderate mitral annular calcification. There is no mitral valve stenosis. There is mild mitral regurgitation. Tricuspid Valve The tricuspid valve is normal. Aortic Valve Aortic valve structure is normal. No aortic stenosis . No aortic regurgitation is present. Pulmonic Valve The pulmonic valve is not well visualized. Great Vessels The aortic root is normal size. Pericardium There is no pericardial effusion. Diastology Grade I diastolic dysfunction, (abnormal relaxation pattern). Interpretation Summary The left ventricle is normal in size. There is normal left ventricular wall thickness. Left ventricular systolic function is normal. Ejection Fraction = 55-60%. The left ventricular wall motion is normal. The right ventricle is normal size. There is normal right ventricular wall thickness. The right ventricular systolic function is normal. The left atrium is moderately dilated. There is moderate mitral annular calcification. There is no mitral valve stenosis. There is mild mitral regurgitation. Grade I diastolic dysfunction, (abnormal relaxation pattern). + + :Measurements with Normals : :IVSd: (0.6-1.2 LVIDd: (3.5-5.7 Ao root diam: (2.0-3.7 : :0.95 cm cm) 4.4 cm cm) 3.3 cm cm) : :LVPWd: (0.6-1.1 LVIDs: (3.1-4.6 LA dimension: (1.9-4.0 : :0.91 cm cm) 2.7 cm cm) 4.0 cm cm) : + + MMode/2D Measurements & Calculations FS: 39.3 % Ao root area: 8.6 cm2 LVOT diam: 1.9 cm EDV(Teich): 86.8 ml LVOT area: 2.8 cm2 ESV(Teich): 26.0 ml Doppler Measurements & Calculations MV E max rut: MV V2 max: MV dec time: Ao V2 max: 162.0 cm/sec 173.6 cm/sec 0.21 sec 118.0 cm/sec MV A max rut: MV max PG: Ao max P.6 mmHg 72.3 cm/sec 12.0 mmHg MINO(V,D): 2.6 cm2 MV E/A: 2.2 MV V2 mean: 80.2 cm/sec MV mean P.1 mmHg MV V2 VTI: 53.1 cm LV V1 max PG: PA V2 max: 4.6 mmHg 81.4 cm/sec LV V1 max: PA max P.7 mmHg 107.0 cm/sec Electronically signed by: Ulices Mercado MD 11/12/2024 06:37 PM Procedure Note Ulices Mercado MD - 11/12/2024 Adult Echocardiogram + ----- + :Name: LOU ISLAS Study Date: 11/12/2024Status: MHE : : Patient Location: [address]^[id number]^MHeight: 65 in : : : 179 lbBP: 106/55 mmHg: :: 1955 Gender: FemaleBSA: 1.9 m2 : :Reason For Study: possible CHF: :Ordering Physician:: :IVAN VARGAS: :: :Performed By: Danette: :GOLDIE Barahona: + ----- + Procedure A two-dimensional transthoracic echocardiogram with color flow and Dopplerwas performed. Left Ventricle The left ventricle is normal in size. There is normal left ventricularwall thickness. Left ventricular systolic function is normal. Ejection Fraction= 55-60%. The left ventricular wall motion is normal. Right Ventricle The right ventricle is normal size. There is normal right ventricularwall thickness. The right ventricular systolic function is normal. Atria The left atrium is moderately dilated. Right atrial size is normal. Mitral Valve There is moderate mitral annular calcification. There is no mitral valve stenosis. There is mild mitral regurgitation. Tricuspid Valve The tricuspid valve is normal. Aortic Valve Aortic valve structure is normal. No aortic stenosis . No aorticregurgitation is present. Pulmonic Valve The pulmonic valve is not well visualized. Great Vessels The aortic root is normal size. Pericardium There is no pericardial effusion. Diastology Grade I diastolic dysfunction, (abnormal relaxation pattern). Interpretation Summary The left ventricle is normal in size. There is normal left ventricular wall thickness. Left ventricular systolic function is normal. Ejection Fraction = 55-60%. The left ventricular wall motion is normal. The right ventricle is normal size. There is normal right ventricular wall thickness. The right ventricular systolic function is normal. The left atrium is moderately dilated. There is moderate mitral annular calcification. There is no mitral valve stenosis. There is mild mitral regurgitation. Grade I diastolic dysfunction, (abnormal relaxation pattern). + + :Measurements with Normals: :IVSd: (0.6-1.2 LVIDd: (3.5-5.7 Ao root diam:(2.0-3.7 : :0.95 cm cm) 4.4 cm cm) 3.3 cm cm): :LVPWd: (0.6-1.1 LVIDs: (3.1-4.6 LA dimension:(1.9-4.0 : :0.91 cm cm) 2.7 cm cm) 4.0 cm cm): + + MMode/2D Measurements & Calculations FS: 39.3 % Ao root area: 8.6 cm2 LVOT diam: 1.9 cm EDV(Teich): 86.8 ml LVOT area: 2.8 cm2 ESV(Teich): 26.0 ml Doppler Measurements & Calculations MV E max rut: MV V2 max: MV dec time: Ao V2 max: 162.0 cm/sec 173.6 cm/sec 0.21 sec 118.0 cm/sec MV A max rut: MV max PG: Ao max P.6mmHg 72.3 cm/sec 12.0 mmHg MINO(V,D): 2.6cm2 MV E/A: 2.2 MV V2 mean: 80.2 cm/sec MV mean P.1 mmHg MV V2 VTI: 53.1 cm LV V1 max PG: PA V2 max: 4.6 mmHg 81.4 cm/sec LV V1 max: PA max P.7 mmHg 107.0 cm/sec Electronically signed by: Ulices Mercado MD 11/12/2024 06:37 PM us Ivan Vargas MD CV ECHO PROCEDURES Final Resu lt * XR Knee Left 1 or 2 Views (11/12/2024 2:18 PM [employer] COMMANDING OFFICER) Anatomical Region Laterality Modality Lower Extremities, Knee Left Computed Radiography 11/12/2024 3:15 PM [employer] E[employer] COMMANDING OFFICER Narrative 11/12/2024 3:19 PM [employer] E[employer] COMMANDING OFFICER EXAM DESCRIPTION: XR KNEE LEFT 1 OR 2 VIEWS REASON FOR STUDY: pain Pt states knee pain today, no injury, unable to bear any weight or move leg FINDINGS: Two views submitted without comparison. Old internally fixated distal femur fracture is noted. Irregularity of the medial tibial plateau appears chronic. There is mild medial and patellofemoral bicompartmental left knee osteoarthritis. A moderate to large knee effusion is present. Arterial atherosclerosis is noted. IMPRESSION: Old internally fixated distal left femur fracture. Irregularity involving the medial tibial plateau appears chronic suggestive of a prior fracture. This can be correlated with any prior imaging and further evaluated with CT if clinically indicated. Mild medial and patellofemoral bicompartmental left knee osteoarthritis with a moderate to large effusion. THIS IS AN ELECTRONICALLY VERIFIED FINAL REPORT 11/12/2024 3:19 PM - Electronically signed by Juan Daily M.D. MF: [id number] Report ID: [id number] Reading Location: [id number] Procedure Note Juan Daily MD - 11/12/2024 EXAM DESCRIPTION: XR KNEE LEFT 1 OR 2 VIEWS REASON FOR STUDY: pain Pt states knee pain today, no injury, unable to bear any weight or moveleg FINDINGS: Two views submitted without comparison. Old internally fixated distal femur fracture is noted. Irregularity ofthe medial tibial plateau appears chronic. There is mild medial and patellofemoral bicompartmental left knee osteoarthritis. A moderate tolarge knee effusion is present. Arterial atherosclerosis is noted. IMPRESSION: Old internally fixated distal left femur fracture. Irregularityinvolving the medial tibial plateau appears chronic suggestive of a prior fracture. This can be correlated with any prior imaging and further evaluated withCT if clinically indicated. Mild medial and patellofemoral bicompartmental left knee osteoarthritiswith a moderate to large effusion. THIS IS AN ELECTRONICALLY VERIFIED FINAL REPORT 11/12/2024 3:19 PM - Electronically signed by Juan Daily M.D. MF: [email or web address] Report ID: [id number] Reading Location: [id number] us Ivan Vargas MD IMG XR PROCEDURES Final Resul t * POCT glucose (11/12/2024 12:11 PM [employer] COMMANDING OFFICER) [facility] Glucose, POC 156 70 - 199 mg/dL Comment:Testing performed by : [facility], [address] [place] [address]., [address] Glucose comment 1 Use This Result DAYANA Comment:Testing performed by : [address] [address] Blood 11/12/2024 12:1 1 PM [employer] E[employer] COMMANDING OFFICER 11/12/2024 12:11 PM [employer] E[employer] COMMANDING OFFICER Ivan Vargas MD LAB POCT ORDERABLES - DEVICE Final Result Performing Organization Address [facility] Co de Phone Number MARY ALICE[address] [place] [address] * POCT glucose (11/12/2024 10:02 AM MOT[employer] E[employer]IPMENT COMMANDING OFFICER) [facility] Glucose, POC 125 70 - 199 mg/dL Comment:Testing performed by : [facility], [address] [place] [address]., [address] Glucose comment 1 Use This Result DAYANA Comment:Testing performed by : [facility], [address] [place] [address]., [address] Blood 11/12/2024 10:0 2 AM [employer] E[employer]MENT COMMANDING OFFICER 11/12/2024 10:02 AM [employer] E[employer]MENT COMMANDING OFFICER Ivan Vargas MD LAB POCT ORDERABLES - DEVICE Final Result Performing Organization Address City/[facility] Co de Phone Number MARY ALICE[address] [place] [address] * (ABNORMAL) eGFR (11/12/2024 8:29 AM MOT[employer] EQUIPMENT COMMANDING OFFICER) [facility] eGFR 49(L) >=60 mL/min/1. 73 m2 Comment: Interpretive Data Reference Interval Normal >/= 90 mL/min/1.73m2 Mildly decreased* 60 - 89 mL/min/1.73m2 Mildly to moderately decreased 45 - 59 mL/min/1.73m2 Moderately to severely decreased 30 - 44 mL/min/1.73m2 Severely decreased 15 - 29 mL/min/1.73m2 Kidney Failure < 15 mL/min/1.73m2 *Relative to young adult level Estimated glomerular filtration rate is determined by the 2020 CKD-EPI equation recommended by the National [employer] (A Unifying Approach to GFR Estimation: Recommendations of the NKF-ASK Task Force on Reassessing the Inclusion of Race in Diagnosing Kidney Disease, JASN 2020). The CKD-EPI equation should not be used for patients with unstable renal function and has not been validated in children and those over 70. Current interpretive data was last reviewed 2021. Testing performed by: [address] [address] Blood 11/12/2024 8:29 AM [employer] E[employer]IPMENT COMMANDING OFFICER 11/12/2024 9:02 AM MOT[employer] E[employer]MENT COMMANDING OFFICER us Tino Lynne MD LAB BLOOD ORDERABLES Final Result DAYANA [address] [facility] Department [place] [address] * (ABNORMAL) Differential, auto (11/12/2024 8:29 AM [employer] E[employer]MENT COMMANDING OFFICER) Neutrophil abs 5.0 1.5 - 6.5 K/cumm Comment:Testing performed by : [address] [address] Imm gran abs 0.1 0.0 - 0.1 K/cumm DAYANA CARPIO Comment:Testing performed by : [address] [address] Lymphocyte abs 0.8 0.8 - 3.3 K/cumm DAYANA CARPIO Comment:Testing performed by : [address] [address] Monocyte abs 0.9(H) 0.2 - 0.8 K/cumm DAYANA CARPIO Comment:Testing performed by : [address] [address] Eosinophil abs 0.3 0.0 - 0.5 K/cumm DAYANA CARPIO Comment:Testing performed by : [address] [address] Basophil abs 0.1 0.0 - 0.1 K/cumm DAYANA Comment:Testing performed by : [address] [address] Neutrophil pct 70.4 % [facility] Comment: Interpretive Data Percent cell count reference ranges are not reported, since discordance with absolute values may lead to misinterpretation of CBC data. Current Interpretive Data was last revised on 2018. Testing performed by: [address] [address] Imm gran pct 1.0 % [facility] Comment: Interpretive Data Percent cell count reference ranges are not reported, since discordance with absolute values may lead to misinterpretation of CBC data. Current Interpretive Data was last revised on 2018. Testing performed by: [address] [address] Lymphocyte pct 11.1 % [facility] Comment: Interpretive Data Percent cell count reference ranges are not reported, since discordance with absolute values may lead to misinterpretation of CBC data. Current Interpretive Data was last revised on 2018. Testing performed by: [address] [address] Monocyte pct 12.5 % [facility] Comment: Interpretive Data Percent cell count reference ranges are not reported, since discordance with absolute values may lead to misinterpretation of CBC data. Current Interpretive Data was last revised on 2018. Testing performed by: [address] [address] Eosinophil pct 4.1 % [facility] Comment: Interpretive Data Percent cell count reference ranges are not reported, since discordance with absolute values may lead to misinterpretation of CBC data. Current Interpretive Data was last revised on 2018. Testing performed by: [address] [address] Basophil pct 0.9 % [facility] Comment: Interpretive Data Percent cell count reference ranges are not reported, since discordance with absolute values may lead to misinterpretation of CBC data. Current Interpretive Data was last revised on 2018. Testing performed by: [address] [address] Blood 11/12/2024 8:29 AM [employer] E[employer] COMMANDING OFFICER 11/12/2024 9:03 AM [employer] E[employer] COMMANDING OFFICER Tino Lynne MD LAB BLOOD ORDERABLES Final Result DAYANA [address] [facility] Department [place] [address] * (ABNORMAL) CBC with auto differential (11/12/2024 8:29 AM MOT[employer] E[employer]IPMENT COMMANDING OFFICER) [facility] WBC 7.0 3.8 - 9.9 K/cumm Comment:Testing performed by : [address] [address] Hgb 8.7(L) 11.9 - 15.5 g/dL DAYANA Comment:Testing performed by : [address], [address] Hct 26.9(L) 35.6 - 45.5 % DAYANA Comment:Testing performed by : [address] [address] Plt 203 150 - 400 K/cumm DAYANA Comment:Testing performed by : [address], [address] MPV 10.4 9.1 - 12.3 fL DAYANA Comment:Testing performed by : [address] [address] RBC 2.68(L) 3.90 - 5.20 M/cumm DAYANA Comment:Testing performed by : [address] [address] MCV 100.4(H) 81.3 - 96.4 fL DAYANA Comment:Testing performed by : [address] [address] MCH 32.5 27.1 - 33.3 pg DAYANA CARPIO Comment:Testing performed by : [address], [address] MCHC 32.3 32.3 - 35.7 g/dL DAYANA Comment:Testing performed by : [address] [place] [address] RDW CV 17.0(H) 11.1 - 14.9 % DAYANA CARPIO Comment:Testing performed by : [address] [address] RDW SD 59.2(H) 35.7 - 48.1 fL DAYANA CARPIO Comment:Testing performed by : [address] [address] NRBC abs 0.00 0.00 - 0.01 K/cumm DAYANA CARPIO Comment:Testing performed by : [address] [address] Blood 11/12/2024 8:29 AM [employer] E[employer]MENT COMMANDING OFFICER 11/12/2024 9:03 AM [employer] E[employer]MENT COMMANDING OFFICER Tino Lynne MD LAB BLOOD ORDERABLES Final Result Performing Organization Address City/State/[facility] Co de Phone Number DAYANA [facility] Department [place] [address] * (ABNORMAL) Comprehensive metabolic panel (11/12/2024 8:29 AM [employer] E[employer]MENT COMMANDING OFFICER) Sodium 137 135 - 145 mmol/L Comment:Testing performed by : [address] [address] Potassium, pl 3.4 3.3 - 4.9 mmol/L DAYANA CARPIO Comment:Testing performed by : [address] [address] Chloride 94(L) 97 - 110 mmol/L DAYANA CARPIO Comment:Testing performed by : [address] [address] CO2 29 22 - 32 mmol/L DAYANA CARPIO Comment:Testing performed by : [address] [address] Anion gap 14 2 - 15 mmol/L DAYANA CARPIO Comment:Testing performed by : [address] [address] BUN 23 6 - 25 mg/dL DAYANA CARPIO Comment:Testing performed by : [address] [address] Creatinine 1.20(H) 0.60 - 1.10 mg/dL [facility] Comment:Testing performed by : [address] [address] Glucose 112 70 - 199 mg/dL [facility] Comment: Interpretive Data Fasting glucose >/= 126 mg/dl is diagnostic for diabetes. Fasting is defined as no caloric intake for at least 8 hours. Fasting glucose between 100 mg/dl to 125 mg/dl is diagnostic of prediabetes. In a patient with classic symptoms of hyperglycemia or hyperglycemic crisis, a random glucose >/= 200 mg/dl is diagnostic for diabetes. In the absence of unequivocal hyperglycemia, results should be confirmed by repeat testing. The classification and Diagnosis of Diabetes Diabetes Care 2021; 46: S19-S40. Current interpretive data was last revised 2022. Testing performed by: [address] [address] Calcium 9.3 8.5 - 10.3 mg/dL [facility] Comment:Testing performed by : [address] [address] Bilirubin, total 1.8(H) 0.1 - 1.2 mg/dL [facility] Comment:Testing performed by : [address] [address] Protein, pl 5.9(L) 6.5 - 8.5 g/dL [facility] Comment:Testing performed by : [address] [address] Albumin 3.5 3.5 - 5.0 g/dL [facility] Comment:Testing performed by : [address] [address] Alk phos 297(H) 40 - 130 Units/L [facility] Comment:Testing performed by : [address] [address] ALT 21 7 - 45 Units/L [facility] Comment:Testing performed by : [address] [address] AST 46(H) 10 - 45 Units/L [facility] Comment:Testing performed by : [address] [address] Blood 11/12/2024 8:29 AM [employer]ING OFFICER 11/12/2024 9:02 AM [employer] COMMANDING OFFICER Tino Lynne MD LAB BLOOD ORDERABLES Final Result Performing Organization Address [facility] Co de Phone Number DAYANA [address] [address] * POCT glucose (11/12/2024 3:01 AM [employer] COMMANDING OFFICER) Pathologist [facility] Glucose, POC 118 70 - 199 mg/dL Comment:Testing performed by : [facility], [address] [place] [address]., [address] Glucose comment 1 Use This Result DAYANA Comment:Testing performed by : [facility], [address] [place] [address]., [address] Blood 11/12/2024 3:01 AM [employer]ING OFFICER 11/12/2024 3:01 AM [employer] COMMANDING OFFICER Tino Lynne MD LAB POCT ORDERABLES - DEVICE Final Result Performing Organization Address [facility] Co de Phone Number [address] [address] * Blood culture Blood Peripheral (11/11/2024 9:45 PM [employer] COMMANDING OFFICER) [facility] Report Final Report: No growth Comment:Testing performed by : [facility], [address] [facility] [place] [address] Blood (Peripheral) 11/11/2024 9:45 PM [employer] COMMANDING OFFICER 11/12/2024 1:21 AM [employer] E[employer] COMMANDING OFFICER Narrative DAYANA - 11/16/2024 7:00 AM [employer] E[employer] COMMANDING OFFICER From a different site than #1. Draw Blood cultures before administration of Antibiotics Collection->Peripheral Received only aerobic blood culture bottle 1. Blood cultures are incubated for 4 days on a continuously monitored blood culture system. The first report of a negative culture is issued within 24 hours of receipt of the specimen in the laboratory. 2. Positive culture results are reported as soon as they are detected. 3. The most important factor for detection of microbes in the setting of bloodstream infection is the volume of blood submitted for culture. Failure to collect an optimal blood volume can result in false negative blood cultures. 4. For pediatric patients, the recommended blood volume to collect follows a weight based strategy. See the electronic test catalog for collection instructions. 5. For positive blood cultures, a rapid molecular test may be performed for organism identification using the lanny ePlex blood culture identification panel for gram positive (BCID-GP) and gram negative (BCID-GN) organisms. This nucleic acid amplification test detects microbial DNA in positive blood culture broth. This assay has been cleared by the [place] Food and Drug Administration and its performance characteristics have been verified by the [facility]. For questions about this culture, contact the Microbiology Laboratory at [phone]. Interpretive data was last revised on 24. Bravo Chino MD LAB MICROBIOLOGY - GEN ERAL ORDERABLES Final Result DAYANA [address] [facility] Department [place] [address] * Blood culture Blood Peripheral (11/11/2024 9:45 PM [employer] E[employer] COMMANDING OFFICER) Report Final Report: No growth Comment:Testing performed by : [facility], [address] [facility] [place]., [address] Blood (Peripheral) 11/11/2024 9:45 PM [employer] COMMANDING OFFICER 11/12/2024 1:22 AM [employer] E[employer] COMMANDING OFFICER Kaye ANNE - 11/16/2024 7:00 AM [employer] E[employer] COMMANDING OFFICER Draw Blood cultures before administration of Antibiotics Collection->Peripheral 1. Blood cultures are incubated for 4 days on a continuously monitored blood culture system. The first report of a negative culture is issued within 24 hours of receipt of the specimen in the laboratory. 2. Positive culture results are reported as soon as they are detected. 3. The most important factor for detection of microbes in the setting of bloodstream infection is the volume of blood submitted for culture. Failure to collect an optimal blood volume can result in false negative blood cultures. 4. For pediatric patients, the recommended blood volume to collect follows a weight based strategy. See the electronic test catalog for collection instructions. 5. For positive blood cultures, a rapid molecular test may be performed for organism identification using the lanny ePlex blood culture identification panel for gram positive (BCID-GP) and gram negative (BCID-GN) organisms. This nucleic acid amplification test detects microbial DNA in positive blood culture broth. This assay has been cleared by the [place] Food and Drug Administration and its performance characteristics have been verified by the [facility]. For questions about this culture, contact the Microbiology Laboratory at [phone]. Interpretive data was last revised on 24. us Bravo Chino MD LAB MICROBIOLOGY - GEN ERAL ORDERABLES Final Result DAYANA [address] [facility] Department [place] [address] * CT Chest Abdomen Pelvis WO Contrast (11/11/2024 8:07 PM [employer] COMMANDING OFFICER) Anatomical Region Laterality Modality Body N/A Computed Tomogra phy 11/11/2024 8:12 PM [employer] COMMANDING OFFICER Narrative 11/11/2024 8:29 PM [employer] E[employer] COMMANDING OFFICER EXAM DESCRIPTION: CT CHEST ABDOMEN PELVIS WO CONTRAST REASON FOR STUDY: fluid overload, CHF, possible cirrhosis Pt c/o increasing swelling to bilateral lower extremities that is spreading to lower abd x approx 3 weeks. Pt currently in intermediate for rehab d/t recent hospital admission for similar complaints/ sepsis in legs. Pt hx of CHF, was told she would possibly need to get a paracentesis. Pt endorsing feeling SOB. TECHNIQUE: CT scan of the chest, abdomen, and pelvis performed without intravenous and without oral contrast using helical scanning technique. Reconstructed coronal and sagittal MPR images reviewed. All images stored on PACS. Automated exposure control was used as a dose optimization technique for this examination. COMPARISON: 11/11/2024 FINDINGS: The sensitivity for detection of visceral lesions is diminished without the use of intravenous contrast. CHEST LUNGS: Small patchy areas of density are noted in the right upper and lower lobes. The most prominent is a 1.5 cm density in the periphery of the right upper lobe. Significant consolidation is seen in the right lower lobe dependently. PLEURA: Gjxiw-gj-oxfelzxe right pleural effusion is present. MEDIASTINUM/JETT: No identified masses or abnormal nodes. HEART: Small pericardial effusion is noted. CORONARY ARTERY CALCIFICATION: Yes VASCULATURE CHEST: Atherosclerotic calcification is seen of the thoracic aorta without evidence of an aneurysm. AXILLA: No adenopathy. CHEST WALL: No masses. No subcutaneous air. HARDWARE/LINES/TUBES: None. MUSCULOSKELETAL CHEST: No significant abnormality. ABDOMEN/PELVIS LIVER: The liver appears small and irregular consistent with cirrhosis. No definite focal lesion is seen. GALLBLADDER: Small gallstones are seen in the gallbladder. No wall thickening is evident. BILE DUCTS: No intrahepatic or extrahepatic ductal dilatation. SPLEEN: Normal size. No focal lesions. PANCREAS: No identified cystic or solid masses. No significant calcifications. No adjacent inflammation or peripancreatic fluid collections. Pancreatic duct not dilated. ADRENALS: Normal. KIDNEYS/URINARY TRACT: No identified significant cystic or solid masses. No stones. No hydronephrosis or hydroureter. Urinary bladder is unremarkable. GI: No dilated bowel loops. No obvious wall thickening. Normal appendix. No significant diverticular disease. PERITONEUM: No ascites or free air. RETROPERITONEUM: No mass or adenopathy. REPRODUCTIVE: No significant abnormality. VASCULATURE ABDOMEN: Diffuse atherosclerotic calcification is seen of the abdominal aorta, iliac vessels and mesenteric vessels. Heavy calcification is seen of the proximal renal arteries. MUSCULOSKELETAL ABDOMEN PELVIS: No acute finding. Right hip replacement produces streak artifact. OTHER: No significant abnormality. IMPRESSION: Oxyoa-tl-zftxvhuv right pleural effusion with right lower lobe consolidation. Small patchy areas of density in the right upper and lower lobes may be infectious or inflammatory. Short-term follow-up is recommended. Small pericardial effusion. Hepatic cirrhosis. Cholelithiasis. Diffuse atherosclerotic disease. THIS IS AN ELECTRONICALLY VERIFIED FINAL REPORT 11/11/2024 8:29 PM - Electronically signed by Pedro De La Vega M.D. KH: MADHAV Report ID: [id number] Reading Location: [id number] Procedure Note Pedro De La Vega MD - 11/11/2024 EXAM DESCRIPTION: CT CHEST ABDOMEN PELVIS WO CONTRAST REASON FOR STUDY: fluid overload, CHF, possible cirrhosis Pt c/o increasing swelling to bilateral lower extremities that isspreading to lower abd x approx 3 weeks. Pt currently in intermediate for rehab d/[facility] admission for similar complaints/ sepsis in legs. Pt hx of CHF,was told she would possibly need to get a paracentesis. Pt endorsing feeling SOB. TECHNIQUE: CT scan of the chest, abdomen, and pelvis performed without intravenous and without oral contrast using helical scanning technique. Reconstructed coronal and sagittal MPR images reviewed. All images storedon PACS. Automated exposure control was used as a dose optimizationtechnique for this examination. COMPARISON: 11/11/2024 FINDINGS: The sensitivity for detection of visceral lesions is diminished without the use of intravenous contrast. CHEST LUNGS: Small patchy areas of density are noted in the right upper andlower lobes. The most prominent is a 1.5 cm density in the periphery of theright upper lobe. Significant consolidation is seen in the right lower lobe dependently. PLEURA: Jbwbg-mn-mcgjwhgx right pleural effusion is present. MEDIASTINUM/JETT: No identified masses or abnormal nodes. HEART: Small pericardial effusion is noted. CORONARY ARTERY CALCIFICATION: Yes VASCULATURE CHEST: Atherosclerotic calcification is seen of the thoracic aorta without evidence of an aneurysm. AXILLA: No adenopathy. CHEST WALL: No masses. No subcutaneous air. HARDWARE/LINES/TUBES: None. MUSCULOSKELETAL CHEST: No significant abnormality. ABDOMEN/PELVIS LIVER: The liver appears small and irregular consistent with cirrhosis.No definite focal lesion is seen. GALLBLADDER: Small gallstones are seen in the gallbladder. No wall thickening is evident. BILE DUCTS: No intrahepatic or extrahepatic ductal dilatation. SPLEEN: Normal size. No focal lesions. PANCREAS: No identified cystic or solid masses. No significant calcifications. No adjacent inflammation or peripancreatic fluidcollections. Pancreatic duct not dilated. ADRENALS: Normal. KIDNEYS/URINARY TRACT: No identified significant cystic or solid masses.No stones. No hydronephrosis or hydroureter. Urinary bladder isunremarkable. GI: No dilated bowel loops. No obvious wall thickening. Normalappendix. No significant diverticular disease. PERITONEUM: No ascites or free air. RETROPERITONEUM: No mass or adenopathy. REPRODUCTIVE: No significant abnormality. VASCULATURE ABDOMEN: Diffuse atherosclerotic calcification is seen ofthe abdominal aorta, iliac vessels and mesenteric vessels. Heavycalcification is seen of the proximal renal arteries. MUSCULOSKELETAL ABDOMEN PELVIS: No acute finding. Right hipreplacement produces streak artifact. OTHER: No significant abnormality. IMPRESSION: Qnndm-dw-qtkakjdw right pleural effusion with right lower lobeconsolidation. Small patchy areas of density in the right upper and lower lobes may be infectious or inflammatory. Short-term follow-up is recommended. Small pericardial effusion. Hepatic cirrhosis. Cholelithiasis. Diffuse atherosclerotic disease. THIS IS AN ELECTRONICALLY VERIFIED FINAL REPORT 11/11/2024 8:29 PM - Electronically signed by Pedro De La Vega M.D. KH: MADHAV Report ID: [id number] Reading Location: [id number] Bravo Chino MD IMG CT PROCEDURES Manda l Result * XR Chest 1 Vw Portable (if patient condition/safety warrant portable) (11/11/2024 5:30 PM [employer] COMMANDING OFFICER) Anatomical Region Laterality Modality Body, Chest N/A Computed Radiogr aphy 11/11/2024 6:12 PM [employer] E[employer] COMMANDING OFFICER Narrative 11/11/2024 6:12 PM [employer] E[employer] COMMANDING OFFICER EXAM DESCRIPTION: XR CHEST 1 VIEW REASON FOR STUDY: Shortness of breath Pt c/o increasing swelling to bilateral lower extremities that is spreading to lower abd x approx 3 weeks. Pt currently in intermediate for rehab d/t recent hospital admission for similar complaints/ sepsis in legs. Pt hx of CHF, was told she would possibly need to get a paracentesis. Pt endorsing feeling SOB TECHNIQUE: Frontal radiographic view(s) of the chest. COMPARISON: None FINDINGS: Mild bibasilar airspace opacities. Prominent interstitial markings are noted . No pleural effusion or pneumothorax. Cardiomegaly is present. Mediastinal contours are normal. IMPRESSION: 1. Mild bibasilar opacities. This may represent atelectasis or pneumonia. 2. Possible trace pulmonary edema. THIS IS AN ELECTRONICALLY VERIFIED FINAL REPORT 11/11/2024 6:12 PM - Electronically signed by Eric Larson M.D. AG: CAM Report ID: [id number] Reading Location: [id number] Procedure Note Eric Larson MD - 11/11/2024 EXAM DESCRIPTION: XR CHEST 1 VIEW REASON FOR STUDY: Shortness of breath Pt c/o increasing swelling to bilateral lower extremities that isspreading to lower abd x approx 3 weeks. Pt currently in intermediate for rehab d/[facility] admission for similar complaints/ sepsis in legs. Pt hx of CHF,was told she would possibly need to get a paracentesis. Pt endorsing feelingSOB TECHNIQUE: Frontal radiographic view(s) of the chest. COMPARISON: None FINDINGS: Mild bibasilar airspace opacities. Prominent interstitialmarkings are noted . No pleural effusion or pneumothorax. Cardiomegaly is present. Mediastinal contours are normal. IMPRESSION: 1. Mild bibasilar opacities. This may represent atelectasis orpneumonia. 2. Possible trace pulmonary edema. THIS IS AN ELECTRONICALLY VERIFIED FINAL REPORT 11/11/2024 6:12 PM - Electronically signed by Eric Larson M.D. AG: AG Report ID: [id number] Reading Location: [id number] Bravo Chino MD IMG XR PROCEDURES Manda l Result * Sepsis Lactate w/ Reflex (11/11/2024 5:10 PM [employer] E[employer] COMMANDING OFFICER) Sepsis Lactate 1.6 0.7 - 2.0 mmol/L Comment:Testing performed by : [facility], [address] [place] [address]., [id number] Blood 11/11/2024 5:10 PM [employer] E[employer] COMMANDING OFFICER 11/11/2024 5:16 PM [employer] E[employer] COMMANDING OFFICER Bravo Chino MD LAB BLOOD ORDERABLES F inal Result DAYANA [address] [facility] Department [place] [address] * (ABNORMAL) eGFR (11/11/2024 5:10 PM MOTOR E[employer]MENT COMMANDING OFFICER) Pathologist [facility] eGFR 43(L) >=60 mL/min/1. 73 m2 Comment: Interpretive Data Reference Interval Normal >/= 90 mL/min/1.73m2 Mildly decreased* 60 - 89 mL/min/1.73m2 Mildly to moderately decreased 45 - 59 mL/min/1.73m2 Moderately to severely decreased 30 - 44 mL/min/1.73m2 Severely decreased 15 - 29 mL/min/1.73m2 Kidney Failure < 15 mL/min/1.73m2 *Relative to young adult level Estimated glomerular filtration rate is determined by the 2020 CKD-EPI equation recommended by the National Kidney Foundation (A Unifying Approach to GFR Estimation: Recommendations of the NKF-ASK Task Force on Reassessing the Inclusion of Race in Diagnosing Kidney Disease, JASN 2020). The CKD-EPI equation should not be used for patients with unstable renal function and has not been validated in children and those over 70. Current interpretive data was last reviewed 2021. Testing performed by: [address] [address] Blood 11/11/2024 5:10 PM [employer] E[employer] COMMANDING OFFICER 11/11/2024 5:16 PM [employer] E[employer]MENT COMMANDING OFFICER us Gloria Steen NP LAB BLOOD ORDERABLES Final Resul t DAYANA CARPIO [address] [facility] Department [place] [address] * (ABNORMAL) Differential, auto (11/11/2024 5:10 PM MOT[employer] E[employer]MENT COMMANDING OFFICER) Pathologist [facility] Neutrophil abs 4.9 1.5 - 6.5 K/cumm Comment:Testing performed by : [address] [address] Imm gran abs 0.1 0.0 - 0.1 K/cumm DAYANA CARPIO Comment:Testing performed by : [address] [address] Lymphocyte abs 0.7(L) 0.8 - 3.3 K/cumm DAYANA CARPIO Comment:Testing performed by : [address] [address] Monocyte abs 0.9(H) 0.2 - 0.8 K/cumm [facility] Comment:Testing performed by : [address] [address] Eosinophil abs 0.2 0.0 - 0.5 K/cumm [facility] Comment:Testing performed by : [address] [address] Basophil abs 0.1 0.0 - 0.1 K/cumm [facility] Comment:Testing performed by : [address] [address] Neutrophil pct 71.4 % [facility] Comment: Interpretive Data Percent cell count reference ranges are not reported, since discordance with absolute values may lead to misinterpretation of CBC data. Current Interpretive Data was last revised on 2018. Testing performed by: [address] [address] Imm gran pct 1.0 % [facility] Comment: Interpretive Data Percent cell count reference ranges are not reported, since discordance with absolute values may lead to misinterpretation of CBC data. Current Interpretive Data was last revised on 2018. Testing performed by: [address] [address] Lymphocyte pct 10.8 % [facility] Comment: Interpretive Data Percent cell count reference ranges are not reported, since discordance with absolute values may lead to misinterpretation of CBC data. Current Interpretive Data was last revised on 2018. Testing performed by: [address] [address] Monocyte pct 13.0 % [facility] Comment: Interpretive Data Percent cell count reference ranges are not reported, since discordance with absolute values may lead to misinterpretation of CBC data. Current Interpretive Data was last revised on 2018. Testing performed by: [address] [address] Eosinophil pct 3.1 % [facility] Comment: Interpretive Data Percent cell count reference ranges are not reported, since discordance with absolute values may lead to misinterpretation of CBC data. Current Interpretive Data was last revised on 2018. Testing performed by: [address], [place]., [address] Basophil pct 0.7 % DAYANA CARPIO Comment: Interpretive Data Percent cell count reference ranges are not reported, since discordance with absolute values may lead to misinterpretation of CBC data. Current Interpretive Data was last revised on 2018. Testing performed by: [facility], [address] [place] [address]., [address] Blood 11/11/2024 5:10 PM [employer] E[employer] COMMANDING OFFICER 11/11/2024 5:16 PM [employer] E[employer] COMMANDING OFFICER us Gloria Steen NP LAB BLOOD ORDERABLES Final Resul t DYAANA CARPIO [address] [facility] Department [place] [address] * (ABNORMAL) Pro B-type natriuretic peptide (11/11/2024 5:10 PM [employer] E[employer] COMMANDING OFFICER) NT-proBNP 5,728(H) <=300 pg/mL Comment: Interpretive Comments: A. Dyspnea in Acute Care Setting All Ages: < 300 pg/ml, acute heart failure unlikely. < 50 yrs: 300 - 450 pg/ml, further investigation warranted. > 450 pg/ml, acute heart failure likely. 50 - 74 yrs: 300 - 900 pg/ml, further investigation warranted. > 900 pg/ml, acute heart failure likely . > or = 75 yrs: 450 - 1800 pg/ml, further investigation warranted. > 1800 pg/ml, acute heart failure likely. B. Non-acute Setting < 75 yrs < 125 pg/ml, rules out heart failure. > or = 125 pg/ml, further investigation warranted. > or = 75 yrs < 450 pg/ml, rules out heart failure. > or = 450 pg/ml, further investigation warranted. - Knowledge of each individual patient's NT-proBNP range may be more useful than using similar cut-points for every patient. Please note that marked elevations in NT-proBNP levels may be observed in state other than Left Ventricular Congestive Failure, including: acute coronary syndromes, right heart strain/failure (including pulmonary embolism and cor pulmonale), critical illness, renal failure, as well as advanced age. - References: 1. Brent MADSEN et.al. Eur Heart J. 2006:27:330-337. 2. Servando RW, Miriam ESTRADA. J. AM Armando Cardiol: Cardiovasc Imag. 2009;2: 216- 225. Interpretive Data Last Revised Date: 2018. Testing performed by: [address] [address] Blood 11/11/2024 5:10 PM [employer] E[employer] COMMANDING OFFICER 11/11/2024 5:16 PM [employer] E[employer] COMMANDING OFFICER us Bravo Chino MD LAB BLOOD ORDERABLES F inal Result [facility] [address] [facility] Department [place] [address] * (ABNORMAL) CBC with auto differential (11/11/2024 5:10 PM MOT[employer] E[employer]IPMENT COMMANDING OFFICER) WBC 6.9 3.8 - 9.9 K/cumm Comment:Testing performed by : [address] [address] Hgb 9.3(L) 11.9 - 15.5 g/dL DAYANA Comment:Testing performed by : [address] [address] Hct 28.3(L) 35.6 - 45.5 % DAYANA Comment:Testing performed by : [address] [address] Plt 209 150 - 400 K/cumm DAYANA Comment:Testing performed by : [address] [address] MPV 10.3 9.1 - 12.3 fL DAYANA Comment:Testing performed by : [address] [address] RBC 2.84(L) 3.90 - 5.20 M/cumm DAYANA Comment:Testing performed by : [address] [address] MCV 99.6(H) 81.3 - 96.4 fL DAYANA Comment:Testing performed by : [address] [address] MCH 32.7 27.1 - 33.3 pg DAYANA CARPIO Comment:Testing performed by : [address] [address] MCHC 32.9 32.3 - 35.7 g/dL DAYANA CARPIO Comment:Testing performed by : [address] [address] RDW CV 17.0(H) 11.1 - 14.9 % DAYANA Comment:Testing performed by : [address] [address] RDW SD 59.6(H) 35.7 - 48.1 fL DAYANA CARPIO Comment:Testing performed by : [address] [address] NRBC abs 0.00 0.00 - 0.01 K/cumm DAYANA CARPIO Comment:Testing performed by : [address] [address] Blood 11/11/2024 5:10 PM [employer] E[employer] COMMANDING OFFICER 11/11/2024 5:16 PM [employer] E[employer] COMMANDING OFFICER us Bravo Chino MD LAB BLOOD ORDERABLES F inal Result DYAANA [address] [facility] Department [place] [address] * (ABNORMAL) Comprehensive metabolic panel (11/11/2024 5:10 PM [employer] E[employer] COMMANDING OFFICER) Sodium 136 135 - 145 mmol/L Comment:Testing performed by : [address] [address] Potassium, pl 3.6 3.3 - 4.9 mmol/L DAYANA CARPIO Comment: Hemolyzed; Potassium value may be falsely elevated by as much as 1.0 mmol/L. Suggest redraw and reanalysis. Testing performed by: [address] [address] Chloride 93(L) 97 - 110 mmol/L DAYANA CARPIO Comment:Testing performed by : [address] [address] CO2 32 22 - 32 mmol/L [facility] Comment:Testing performed by : [address] [address] Anion gap 11 2 - 15 mmol/L [facility] Comment:Testing performed by : [address] [address] BUN 23 6 - 25 mg/dL [facility] [facility] Comment:Testing performed by : [address] [address] Creatinine 1.32(H) 0.60 - 1.10 mg/dL [facility] Comment:Testing performed by : [address] [address] Glucose 170 70 - 199 mg/dL [facility] Comment: Interpretive Data Fasting glucose >/= 126 mg/dl is diagnostic for diabetes. Fasting is defined as no caloric intake for at least 8 hours. Fasting glucose between 100 mg/dl to 125 mg/dl is diagnostic of prediabetes. In a patient with classic symptoms of hyperglycemia or hyperglycemic crisis, a random glucose >/= 200 mg/dl is diagnostic for diabetes. In the absence of unequivocal hyperglycemia, results should be confirmed by repeat testing. The classification and Diagnosis of Diabetes Diabetes Care 2021; 46: S19-S40. Current interpretive data was last revised 2022. Testing performed by: [address] [address] Calcium 9.6 8.5 - 10.3 mg/dL [facility] Comment:Testing performed by : [address] [address] Bilirubin, total 1.9(H) 0.1 - 1.2 mg/dL [facility] Comment:Testing performed by : [address] [address] Protein, pl 6.3(L) 6.5 - 8.5 g/dL [facility] Comment:Testing performed by : [address] [address] Albumin 3.6 3.5 - 5.0 g/dL [facility] Comment:Testing performed by : [address] [address] Alk phos 337(H) 40 - 130 Units/L [facility] Comment:Testing performed by : [facility], [address] [place] [address]., [address] ALT 30 7 - 45 Units/L [facility] Comment:Testing performed by : [facility], [address] [place] [address]., [address] AST 73(H) 10 - 45 Units/L [facility] Comment: Hemolyzed; result may be falsely elevated Testing performed by: [address] [address] Blood 11/11/2024 5:10 PM [employer] EQUIP[employer] COMMANDING OFFICER 11/11/2024 5:16 PM [employer] EQU[employer] COMMANDING OFFICER Result [facility] Bravo Chino MD LAB BLOOD ORDERABLES F inal Result [facility] [address] [facility] Department [place] [address] * Cardiology Document Scan (11/01/2024 10:08 AM [employer] EQUIP[employer] COMMANDING OFFICER) Anatomical Region Laterality Modality Other Bridget Nicholson NP [facility] CARDIAC SERVICES PROCEDUR ES Final Result * Cardiology Document Scan (10/31/2024 9:21 AM [employer]OR EQUIPMENT COMMANDING OFFICER) Anatomical Region Laterality Modality Other Jc Schaffer MD CV CARDIAC SERVICES PROCEDURES F inal Result * POCT lipid panel (11/15/2023 2:47 PM [employer] E[employer] COMMANDING OFFICER) Cholesterol, POC 146 mg/dL Comment:GLU = 90 HDL, POC 58 mg/dL Triglycerides, POC 87 mg/dL LDL Cholesterol POC 70 mg/dL Chol/HDL Ratio, POC 1.2 Non-HDL Cholesterol, POC 88 mg/dL Cholesterol Total, POC 146 mg/dL Capillary blood 11/15/2023 2 :47 PM [employer] EQU[employer] COMMANDING OFFICER Bridget Nicholson NP POINT OF CARE TEST ORDERABLE S Final Result from Last 3 Months or Most Recently Relevant to Health Maintenance Insurance MEDICARE [employer] SENIOR SUPPLEMENT Advance Directives For more information, please contact: [phone] Documents on File Type Date Recorded Patient [employer] anation ADVANCE DIRECTIVE 11/13/2024 3:42 PM 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
--- OUTSIDE RECORDS SUMMARY | 2025-01-09 12:22 | XMS_ITS | Patient Health Record ---
Author Organization [facility] Address [address] [place] [address] Care Team Providers Care Senior Financial Name Role Phone Ramesh Smith Primary Care Provider UnavailDr. Juan Doherty Unavailable [phone] Wilfrido Harley Unavailable Unavailable [facility], Provider Unavailable Unavailab le Allergies Allergen (clinical drug ingredient) Drug/Non Drug Allergy documented on EMR Reaction Allergy Type Onset Date Status codeine Codeine Unknown Drug Allergy Active Reason For Referral No Information Medications Medication SIG (Take, Route, Frequency, Duration) Notes Start Date End Date Status Atorvastatin Calcium 10 MG 1 tab(s) orally once a day for 30 day(s) Active Sodium Chloride 1 GM as directed Active FUROSEMIDE 20 mg 1 tab(s) orally once a day for 30 day(s) Active Alendronate Sodium 70 MG 1 tab(s) orally once a week for 28 day(s) Active LANTUS 100 units/mL 0 subcutaneously hs Active HumaLOG 100 UNIT/ML 3 subcutaneously ac Active HUMALOG 100 units/mL 3 subcutaneously ac Active ALENDRONATE 70 mg 1 tab(s) orally once a week for 28 day(s) Active SODIUM CHLORIDE 1 g as directed Active ATORVASTATIN 10 mg 1 tab(s) orally once a day for 30 day(s) Active LABETALOL 100 mg 1 tab(s) orally Qday Active CLOBETASOL TOPICAL 0.05% 1 mike applied t opically 2 times a day for 14 day(s) Active PRILOSEC OTC 20 mg 1 tab(s) orally once a day for 14 day(s) Active POTASSIUM CHLORIDE 10 mEq 1 tab(s) orall y 2 times a day for 30 day(s) Active PriLOSEC OTC 20 MG 1 tab(s) orally once a day for 14 day(s) Active Labetalol HCl 100 MG 1 tab(s) orally Qday Active Furosemide 20 MG 1 tab(s) orally once a day for 30 day(s) Active Clobetasol Propionate 0.05 % 1 mike applied topically 2 times a day for 14 day(s) Active Potassium Chloride ER 10 MEQ 1 tab(s) orally 2 times a day for 30 day(s) Active Lantus 100 UNIT/ML 0 subcutaneously hs Active Problems Problem Type SNOMED Code ICD Code Onset Dates Problem Status W/U Status Risk Notes Problem Polyneuropathy due to type 2 diabetes mellitus (240964610) Type 2 diabetes mellitus with diabetic polyneuropathy (E11.42) Active confirmed Problem Hypo-osmolality and or hyponatremia (632383578) Hypo-osmolality and hyponatremia (E87.1) Active confirmed Problem Alcohol dependence (94961070) Alcohol dependence, uncomplicated (F10.20) Active confirmed Problem Cerebral degeneration associated with another disorder (813387221) 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 confirmed Problem Chronic migraine without aura, non-intractable (433180059610385) Chronic migraine without aura, not intractable, without status migrainosus (G43.709) Active confirmed Problem Alcoholic polyneuropathy (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 Problem Orthostatic hypotension (66382120) Orthostatic hypotension (I95.1) Active confirmed Problem Abnormal gait (00202311) Other abnormalities of gait and mobility (R26.89) Active confirmed Problem Malaise (840438426) Other malaise (R53.81) Active confirmed Problem Neurogenic claudication (622526416) Spinal stenosis, lumbar region with neurogenic claudication (M48.062) Active confirmed Encounters Encounter Location Date Provider Diagnosis [facility] [address] [place] [address] 03/30/2024 Provider [employer] Plan Of Treatment No Information Insurance Providers Payer Name Payer Address Payer Phone Subscriber Number Group Number Insured Name Patient Relationship to Insured Coverage Start Date Coverage End Date [employer] (Medicare) Attention Claims [address] [place] [address] [phone] [id number] Lou Islas Self - patient is the insured [employer] [address] [place] [id number] Lou Islas Self - patient is the insured Medical (General) History Medical History History ICD Code Obesity DM2 HLD HTN Osteoarthritis Osteoporosis Lumbar DDD GERD Chronic hyponatremia Mild CKD Liver cirrhosis Surgical History Surgery Date(Month/Year) R hip replacement L hip replacement Lumbar discectomy B cataract
--- OUTSIDE RECORDS SUMMARY | 2025-01-09 12:23 | XMS_ITS | Referral Summary ---
Author Organization [facility] Office Center Address [address] [place] [address] Care Team Providers Care Grinding Machine Operator Portable Name Role Phone Augustus Birch MD Unavailable Ghanshyam Ruiz NP Primary Care Provider [phone] Encounters Date Type Department Care Team Description 12/26/2024 9:15 AM CDT - 12/26/2024 11:59 PM CDT Hospital Encounter [facility] MOB 1 DIAG IMG [address] [place] [address] Closed fracture of medial portion of left tibial plateau, initial encounter Discharge Disposition: Discharge to home or self care 12/26/2024 9:30 AM CDT Office Visit [facility] Orthopedics and Sports Medicine [address] [place] [phone] Samara Soto PA Closed fracture of medial portion of left tibial plateau with routine healing, subsequent encounter (Primary Dx) 12/25/2024 9:30 AM CDT Office Visit [facility] Cardiology [address] [place] [address] Bridget Nicholson NP Congestive heart failure, unspecified HF chronicity, unspecified heart failure type (HCC) (Primary Dx); Lymphedema of both lower extremities; Closed fracture of medial portion of left tibial plateau, initial encounter; Chronic venous insufficiency of lower extremity 11/27/2024 11:00 AM RAISE MINER Office Visit [facility] Vascular at [address] [place] [address] Lexie Rucker MD Chronic venous insufficiency of lower extremity (Primary Dx) 11/26/2024 2:00 PM RAISE MINER Ancillary Procedure [facility] Vascular and Vein Surgery at [address] [place] [phone] Varicose veins of lower extremity with pain, bilateral; Other specified symptoms and signs involving the circulatory and respiratory systems 11/26/2024 1:00 PM RAISE MINER Ancillary Procedure [facility] Vascular and Vein Surgery at [address] [place] [phone] Varicose veins of lower extremity with pain, bilateral 11/25/2024 Orders Only [facility] Cardiology [address] [place] [phone] Bridget Nicholson NP 11/21/2024 Telephone [facility] Nephrology at [address] [place] [address] Bravo Mckenzie MD 11/11/2024 5:12 PM RAISE MINER - 11/20/2024 6:14 PM RAISE MINER Hospital Encounter [facility] 5 Med Surg [facility] [place] [address] Bravo Chino MD Ogbuagu, MD Devorah Mejias Akhil, MD Singh, Anjanya Devendra, MD Congestive heart failure, unspecified HF chronicity, unspecified heart failure type (HCC) (Primary Dx); Pneumonia due to infectious organism, unspecified laterality, unspecified part of lung; CATHRYN (acute kidney injury) (HCC) [N17.9]; Cirrhosis of liver without ascites, unspecified hepatic cirrhosis type (HCC) [K74.60]; Closed fracture of medial portion of left tibial plateau, initial encounter [S82.132A] Discharge Disposition: Discharge to [facility] 11/07/2024 Orders Only [facility] Cardiology [address] [place] [phone] Jc Schaffer MD 10/30/2024 Telephone [facility] Cardiology [address] [place] [address] Carlitos Edmonds MD from Last 3 Months Allergies Active Allergy Reactions Criticality Noted Date [...] mouth daily Active blood-glucose meter,continuous (Dexcom G6 Academic Services Coordinator) [facility] Activ e thiamine (VITAMIN B1) 100 mg [...] 1 tablet (1 g total) by mouth chart snatcher before breakfast 06/04/20 21 Active sodium zirconium [...] 11/29/2024 Assessment & Plan (11/29/2024 11:50 AM RAISE MINER): Bilateral lower extremity chronic venous insufficiency with [...] follow-up in 1 week with venous duplex. Immunizations Immunization Administration Dates Next Due Influenza, Unspecified 07/16/2024 Social History Tobacco Use Types Packs/Day Years Used Date Smoking Tobacco: Former Cigarettes 1 30 Q uit: 2005 Smokeless Tobacco: Never Tobacco Cessation:Counseling Given: Not Answered [facility] Utilities Answer Date Recorded In the past 12 months has [employer], oil, or water [employer] threatened to shut off services in your [...] week 11/12/2024 How often do you attend [facility] or confucianism services? More than 4 times per year 11/12/2024 Do you belong to any clubs o r organizations such as hinduism groups, unions, fraternal or athletic groups, or [...] any time in the past 12 m [facility], were you homeless or living in a retirement (including now)? No 11/12/2024 Personal Safety Answer [...] 36.4 C (97.5 F) 11/20/2024 4:02 AM RAISE MINER Respiratory Rate 18 11/20/2024 8:44 AM RAISE MINER Oxygen Saturation 99% 12/25/2024 9:24 AM CDT Inhaled Oxygen Concentration - - Weight 65.3 kg (144 lb) 12/25/2024 9:24 AM CDT Height 165.1 cm (5' 5 ) 12/25/2024 9:24 AM CDT Body Mass Index 23.96 12/25/2024 9:24 AM CDT Plan of Treatment Not on file Procedures Procedure Name Priority Date/Time Associated Diagnosis Comments XR TIBIA FIBULA LEFT 2 VIEWS Schedule Routine, Read Routine (OP Routine) 12/26/2024 9:26 AM CDT Closed fracture of medial portion of left tibial plateau, initial encounter US SONIA Schedule Routine, Read Routine (OP Routine) 11/26/2024 2:32 PM RAISE MINER Varicose veins of lower extremity with pain, bilateral Other specified symptoms and signs involving the circulatory and respiratory systems US VENOUS REFLUX BILATERAL Routine 11/26/2024 2:32 PM RAISE MINER Varicose veins of lower extremity with pain, bilateral POCT GLUCOSE DEVICE Routine 11/20/2024 5 :57 PM RAISE MINER POCT GLUCOSE DEVICE Routine 11/20/2024 1 2:28 PM RAISE MINER POCT GLUCOSE DEVICE Routine 11/20/2024 8 :57 AM RAISE MINER EGFR Routine 11/20/2024 5:33 AM RAISE MINER DIFFERENTIAL AUTO Routine 11/20/2024 5:3 3 AM RAISE MINER COMPREHENSIVE METABOLIC PANEL Routine 11/20/2024 5:33 AM RAISE MINER CBC WITH AUTO DIFFERENTIAL Routine 11/20/2024 5:33 AM RAISE MINER POCT GLUCOSE DEVICE Routine 11/19/2024 8 :57 PM RAISE MINER POCT GLUCOSE DEVICE Routine 11/19/2024 5 :10 PM RAISE MINER POCT GLUCOSE DEVICE Routine 11/19/2024 1 2:24 PM RAISE MINER POCT GLUCOSE DEVICE Routine 11/19/2024 1 1:36 AM RAISE MINER POCT GLUCOSE DEVICE Routine 11/19/2024 8 :22 AM RAISE MINER EGFR Routine 11/19/2024 6:23 AM RAISE MINER DIFFERENTIAL AUTO Routine 11/19/2024 6:2 3 AM RAISE MINER AMMONIA Routine 11/19/2024 6:23 AM RAISE MINER COMPREHENSIVE METABOLIC PANEL Routine 11/19/2024 6:23 AM RAISE MINER CBC WITH AUTO DIFFERENTIAL Routine 11/19/2024 6:23 AM RAISE MINER POCT GLUCOSE DEVICE Routine 11/18/2024 8 :[address] ABDOMEN PELVIS WO CONTRAST IP Routine 11/18/2024 8:34 PM RAISE MINER POCT GLUCOSE DEVICE Routine 11/18/2024 5 :49 PM RAISE MINER POCT GLUCOSE DEVICE Routine 11/18/2024 1 2:43 PM RAISE MINER POCT GLUCOSE DEVICE Routine 11/18/2024 7 :55 AM RAISE MINER DIFFERENTIAL AUTO Routine 11/18/2024 6:3 5 AM RAISE MINER CBC WITH AUTO DIFFERENTIAL Routine 11/18/2024 6:35 AM RAISE MINER EGFR Routine 11/18/2024 5:52 AM RAISE MINER FOLATE Routine 11/18/2024 5:52 AM RAISE MINER VITAMIN B12 Routine 11/18/2024 5:52 AM RAISE MINER COMPREHENSIVE METABOLIC PANEL Routine 11/18/2024 5:52 AM RAISE MINER POCT GLUCOSE DEVICE Routine 11/17/2024 8 :52 PM RAISE MINER POCT GLUCOSE DEVICE Routine 11/17/2024 6 :05 PM RAISE MINER POCT GLUCOSE DEVICE Routine 11/17/2024 1 :08 PM RAISE MINER POCT GLUCOSE DEVICE Routine 11/17/2024 9 :20 AM RAISE MINER EGFR Routine 11/17/2024 7:01 AM RAISE MINER DIFFERENTIAL AUTO Routine 11/17/2024 7:0 1 AM RAISE MINER COMPREHENSIVE METABOLIC PANEL Routine 11/17/2024 7:01 AM RAISE MINER CBC WITH AUTO DIFFERENTIAL Routine 11/17/2024 7:01 AM RAISE MINER POCT GLUCOSE DEVICE Routine 11/16/2024 7 :44 PM RAISE MINER POCT GLUCOSE DEVICE Routine 11/16/2024 6 :33 PM RAISE MINER POCT GLUCOSE DEVICE Routine 11/16/2024 1 1:54 AM RAISE MINER HEMOGLOBIN A1C Routine 11/16/2024 9:56 AM RAISE MINER EGFR Routine 11/16/2024 9:56 AM RAISE MINER DIFFERENTIAL AUTO Routine 11/16/2024 9:5 6 AM RAISE MINER COMPREHENSIVE METABOLIC PANEL Routine 11/16/2024 9:56 AM RAISE MINER CBC WITH AUTO DIFFERENTIAL Routine 11/16/2024 9:56 AM RAISE MINER POCT GLUCOSE DEVICE Routine 11/16/2024 8 :53 AM RAISE MINER POCT GLUCOSE DEVICE Routine 11/16/2024 1 2:30 AM RAISE MINER POCT GLUCOSE DEVICE Routine 11/15/2024 8 :35 PM RAISE MINER POCT GLUCOSE DEVICE Routine 11/15/2024 5 :29 PM RAISE MINER POCT GLUCOSE DEVICE Routine 11/15/2024 1 :28 PM RAISE MINER POCT GLUCOSE DEVICE Routine 11/15/2024 8 :56 AM RAISE MINER MAGNESIUM Routine 11/15/2024 4:35 AM RAISE MINER EGFR Routine 11/15/2024 4:35 AM RAISE MINER DIFFERENTIAL AUTO Routine 11/15/2024 4:3 5 AM RAISE MINER PROTIME-INR Routine 11/15/2024 4:35 AM RAISE MINER COMPREHENSIVE METABOLIC PANEL Routine 11/15/2024 4:35 AM RAISE MINER CBC WITH AUTO DIFFERENTIAL Routine 11/15/2024 4:35 AM RAISE MINER POCT GLUCOSE DEVICE Routine 11/14/2024 9 :28 PM RAISE MINER POCT GLUCOSE DEVICE Routine 11/14/2024 5 :48 PM RAISE MINER SODIUM, URINE, RANDOM Routine 11/14/2024 3:29 PM RAISE MINER URINALYSIS AND REFLEX TO MICROSCOPIC AND CULTURE STAT 11/14/2024 3:28 PM RAISE MINER AMMONIA Add-On 11/14/2024 2:16 PM RAISE MINER POCT GLUCOSE DEVICE Routine 11/14/2024 1 1:21 AM RAISE MINER POCT GLUCOSE DEVICE Routine 11/14/2024 8 :11 AM RAISE MINER EGFR Routine 11/14/2024 5:03 AM RAISE MINER DIFFERENTIAL AUTO Routine 11/14/2024 5:0 3 AM RAISE MINER COMPREHENSIVE METABOLIC PANEL Routine 11/14/2024 5:03 AM RAISE MINER CBC WITH AUTO DIFFERENTIAL Routine 11/14/2024 5:03 AM RAISE MINER POCT GLUCOSE DEVICE Routine 11/14/2024 4 :41 AM RAISE MINER POCT GLUCOSE DEVICE Routine 11/13/2024 7 :59 PM RAISE MINER POCT GLUCOSE DEVICE Routine 11/13/2024 5 :[address] KNEE LEFT WO CONTRAST IP Routine 11/13/2024 4:52 PM RAISE MINER US CHEST IP Routine 11/13/2024 2:21 PM RAISE MINER POCT GLUCOSE DEVICE Routine 11/13/2024 2 :13 PM RAISE MINER FLUORO GUIDED ASPIRATION KNEE LEFT IP Routine 11/13/2024 1:30 PM RAISE MINER EGFR Routine 11/13/2024 9:02 AM RAISE MINER DIFFERENTIAL AUTO Routine 11/13/2024 9:0 2 AM RAISE MINER COMPREHENSIVE METABOLIC PANEL Routine 11/13/2024 9:02 AM RAISE MINER CBC WITH AUTO DIFFERENTIAL Routine 11/13/2024 9:02 AM RAISE MINER MAGNESIUM Routine 11/13/2024 9:02 AM RAISE MINER POCT GLUCOSE DEVICE Routine 11/13/2024 8 :00 AM RAISE MINER STREP PNEUMONIAE AG, URINE Routine 11/13/2024 12:28 AM RAISE MINER LEGIONELLA ANTIGEN, URINE Routine 11/13/2024 12:28 AM RAISE MINER POCT GLUCOSE DEVICE Routine 11/12/2024 1 0:04 PM RAISE MINER TRANSTHORACIC ECHO (TTE) COMPLETE W DOPPLER/CF WO CONTRAST Routine 11/12/2024 4:14 PM RAISE MINER XR KNEE LEFT 1 OR 2 VIEWS IP Routine 11/12/2024 2:18 PM RAISE MINER POCT GLUCOSE DEVICE Routine 11/12/2024 1 2:11 PM RAISE MINER POCT GLUCOSE DEVICE Routine 11/12/2024 1 0:02 AM RAISE MINER EGFR Routine 11/12/2024 8:29 AM RAISE MINER DIFFERENTIAL AUTO Routine 11/12/2024 8:2 9 AM RAISE MINER CBC WITH AUTO DIFFERENTIAL Routine 11/12/2024 8:29 AM RAISE MINER COMPREHENSIVE METABOLIC PANEL Routine 11/12/2024 8:29 AM RAISE MINER POCT GLUCOSE DEVICE Routine 11/12/2024 3 :01 AM RAISE MINER BLOOD CULTURE STAT 11/11/2024 9:45 PM RAISE MINER BLOOD CULTURE STAT 11/11/2024 9:[address] CHEST ABDOMEN PELVIS WO CONTRAST ED 11/11/2024 8:07 PM RAISE MINER XR CHEST 1 VIEW ED 11/11/2024 5:30 PM RAISE MINER EGFR STAT 11/11/2024 5:10 PM RAISE MINER DIFFERENTIAL AUTO STAT 11/11/2024 5:1 0 PM RAISE MINER PRO B-TYPE NATRIURETIC PEPTIDE STAT 11/11/2024 5:10 PM RAISE MINER SEPSIS LACTATE WITH REFLEX Routine 11/11/2024 5:10 PM RAISE MINER COMPREHENSIVE METABOLIC PANEL STAT 11/11/2024 5:10 PM RAISE MINER CBC WITH AUTO DIFFERENTIAL STAT 11/11/2024 5:10 PM RAISE MINER CARDIOLOGY DOCUMENT SCAN Routine 11/01/2024 10:08 AM RAISE MINER CARDIOLOGY DOCUMENT SCAN Routine 10/31/2024 9:21 AM RAISE MINER POCT LIPID PANEL Routine 11/15/2023 2:47 PM RAISE MINER Lipid screening from Last 3 Months or [...] Stewart Greene M.D. RB: BECKI Report ID: [id number] Reading Location: [id number] Procedure Note Stewart Greene MD - 12/30/2024 [...] Stewart Greene M.D. RB: BECKI Report ID: [id number] Reading Location: [id number] us Samara MEDEIROS IMG XR PROCEDURES Final Result * US SONIA (11/26/2024 2:32 PM RAISE MINER) Anatomical Region Laterality Modality Vascular N/A Ultrasound 11/26/2024 12:3 5 PM RAISE MINER Narrative 11/27/2024 9:12 AM RAISE MINER Vascular & Vein Surgery [facility] [place] [address] Lower Extremity Arterial Doppler Report Patient Name: LOU ISLAS B : 1955 Study Date: 11/26/2024 12:35:00 PM Gender: F Tool And Die Maker Apprentice: Maira Gonzalez RVT Location: [facility] Ref Provider: LEXIE RUCKER Quality: Adequate Order Provider: LEXIE RUCKER PROCEDURES: Arterial Report: Ankle - Brachial Index Doppler exam. INDICATIONS: BLE wounds with varicose veins. HISTORY: Hypertension. Hyperlipidemia. Diabetic. CHF. Former smoker. COMPARISONS: No previous exams. MEASUREMENTS: Right Value Left Value Rt Brachial Pressure 104 mmHg Lt Brachial Pressure 111 mmHg Rt CROWN POUNCER Pressure >220 mmHg Lt CROWN POUNCER Pressure >220 mmHg Rt DPA Pressure 196 [...] By: Lexie Rucker MD 11/27/2024 8:47:23 AM RAISE MINER Procedure Note Lexie Rucker MD - 11/27/2024 Vascular & Vein Surgery [address] [place] [address] Lower Extremity Arterial Doppler Report Patient Name: LOU ISLAS B : 1955 Study Date: 11/26/2024 12:35:00 PM Gender: F Tool And Die Maker Apprentice: Maira Gonzalez RVT Location: [facility] Ref Provider: LEXIE RUCKER Quality: Adequate Order Provider: LEXIE RUCKER PROCEDURES: Arterial Report: Ankle - Brachial Index Doppler exam. INDICATIONS: BLE wounds with varicose veins. HISTORY: Hypertension. Hyperlipidemia. Diabetic. CHF. Former smoker. COMPARISONS: No previous exams. MEASUREMENTS: Right Value Left Value Rt Brachial Pressure 104 mmHg Lt Brachial Pressure 111 mmHg Rt CROWN POUNCER Pressure >220 mmHg Lt CROWN POUNCER Pressure >220 mmHg Rt DPA Pressure 196 [...] By: Lexie Rucker MD 11/27/2024 8:47:23 AM RAISE MINER us Lexie Rucker MD IMG US PROCEDURES Final Result * US Venous Reflux Bilateral (11/26/2024 2:32 PM RAISE MINER) Anatomical Region Laterality Modality Vascular Bilateral Ultrasound 11/26/2024 12:5 9 PM RAISE MINER Narrative 11/27/2024 9:12 AM RAISE MINER Vascular & Vein Surgery [address] [place] [address] Lower Extremity Venous Reflux Duplex Report Patient Name: LOU ISLAS B : 1955 (69y 7m) Study Date: 11/26/2024 12:59:40 PM Gender: F Tool And Die Maker Apprentice: Location: [facility] Ref Provider: LEXIE RUCKER Quality: [...] in sapheno-femoral junction and small saphenous vein. Adjunct Communications Faculty Member vein noted at distal posterior medial calf, [...] By: Lexie Rucker MD 11/27/2024 8:47:00 AM RAISE MINER Procedure Note Lexie Rucker MD - 11/27/2024 Vascular & Vein Surgery [facility] [place] [address] Lower Extremity Venous Reflux Duplex Report Patient Name: LOU ISLAS Cameron : 1955 (69y 7m) Study Date: 11/26/2024 12:59:40 PM Gender: F Tool And Die Maker Apprentice: NIEVES Location: [facility] Ref Provider: LEXIE RUCKER [...] noted in sapheno-femoral junction and small saphenous vein.Adjunct Communications Faculty Member vein noted at distal posterior medial calf, [...] By: Lexie Rucker MD 11/27/2024 8:47:00 AM RAISE MINER Lexie Rucker MD IMG US PROCEDURES Final Result * POCT glucose (11/20/2024 5:57 PM RAISE MINER) Glucose, POC 175 70 - 199 mg/dL Comment:Testing performed by : [address] [address] Blood 11/20/2024 5:57 PM RAISE MINER 11/20/2024 5:57 PM RAISE MINER Joe Herron MD LAB POCT ORDERABLES - DEVICE Final Result Performing Organization Address [facility]/State/ZIP Co de Phone Number [facility] [address] [facility] Department [place] [address] * POCT glucose (11/20/2024 12:28 PM RAISE MINER) Glucose, POC 186 70 - 199 mg/dL Comment:Testing performed by : [address] [address] Glucose comment 1 Use This Result [facility] Comment:Testing performed by : [address] [address] Glucose comment 2 RN/MD Notified [facility] Comment:Testing performed by : [address] [address] Blood 11/20/2024 12:2 8 PM RAISE MINER 11/20/2024 12:28 PM RAISE MINER Joe Herron MD LAB POCT ORDERABLES - DEVICE Final Result Performing Organization Address [facility] de Phone Number [place] [phone] [facility] [place] [address] * POCT glucose (11/20/2024 8:57 AM RAISE MINER) [facility] Glucose, POC 157 70 - 199 mg/dL Comment:Testing performed by : [address] [address] Glucose comment 1 Use This Result [facility] Comment:Testing performed by : [facility], [address] [place] [address]., [address] Glucose comment 2 RN/MD Notified [facility] Comment:Testing performed by : [address] [address] Blood 11/20/2024 8:57 AM RAISE MINER 11/20/2024 8:57 AM RAISE MINER us Joe Herron MD LAB POCT ORDERABLES - DEVICE Final Result Performing Organization Address [facility] Co de Phone Number [place] [phone] [facility] [place] [address] * (ABNORMAL) eGFR (11/20/2024 5:33 AM RAISE MINER) [facility] eGFR 24(L) >=60 mL/min/1. 73 m2 Comment: [...] was last reviewed 2021. Testing performed by: [address] [address] Blood 11/20/2024 5:33 AM RAISE MINER 11/20/2024 5:56 AM RAISE MINER Ivan Vargas MD LAB BLOOD ORDERABLES Final Re sult [facility] [address] [facility] Department [place] [address] * (ABNORMAL) Differential, auto (11/20/2024 5:33 AM RAISE MINER) Neutrophil abs 3.7 1.5 - 6.5 K/cumm Comment:Testing performed by : [address] [address] Imm gran abs 0.1 0.0 - 0.1 K/cumm DAY[facility] Comment:Testing performed by : [address] [address] Lymphocyte abs 1.1 0.8 - 3.3 K/cumm [facility] Comment:Testing performed by : [address] [address] Monocyte abs 1.0(H) 0.2 - 0.8 K/cumm [facility] Comment:Testing performed by : [address] [address] Eosinophil abs 0.8(H) 0.0 - 0.5 K/cumm [facility] Comment:Testing performed by : [address] [address] Basophil abs 0.1 0.0 - 0.1 K/cumm [facility] Comment:Testing performed by : [address] [address] Neutrophil pct 55.1 % [facility] Comment: Interpretive Data Percent cell count reference ranges are not reported, since discordance with absolute values may lead to misinterpretation of CBC data. Current Interpretive Data was last revised on 2018. Testing performed by: [address] [address] Imm gran pct 1.2 % [facility] Comment: Interpretive Data Percent cell count reference ranges are not reported, since discordance with absolute values may lead to misinterpretation of CBC data. Current Interpretive Data was last revised on 2018. Testing performed by: [address] [address] Lymphocyte pct 16.2 % [facility] Comment: Interpretive Data Percent cell count reference ranges are not reported, since discordance with absolute values may lead to misinterpretation of CBC data. Current Interpretive Data was last revised on 2018. Testing performed by: [address] [address] Monocyte pct 14.3 % [facility] Comment: Interpretive Data Percent cell count reference ranges are not reported, since discordance with absolute values may lead to misinterpretation of CBC data. Current Interpretive Data was last revised on 2018. Testing performed by: [address] [address] Eosinophil pct 12.3 % [facility] Comment: Interpretive Data Percent cell count reference ranges are not reported, since discordance with absolute values may lead to misinterpretation of CBC data. Current Interpretive Data was last revised on 2018. Testing performed by: [address] [address] Basophil pct 0.9 % [facility] Comment: Interpretive Data Percent cell count reference ranges are not reported, since discordance with absolute values may lead to misinterpretation of CBC data. Current Interpretive Data was last revised on 2018. Testing performed by: [address] [address] Blood 11/20/2024 5:33 AM RAISE MINER 11/20/2024 5:56 AM RAISE MINER us Ivan Vargas MD LAB BLOOD ORDERABLES Final Re sult [facility] [address] [facility] Department [place] [address] * (ABNORMAL) CBC with auto differential (11/20/2024 5:33 AM RAISE MINER) [facility] Signature WBC 6.7 3.8 - 9.9 K/cumm Comment:Testing performed by : [address] [address] Hgb 9.2(L) 11.9 - 15.5 g/dL [facility] Comment:Testing performed by : [address] [address] Hct 29.0(L) 35.6 - 45.5 % [facility] Comment:Testing performed by : [address] [address] Plt 275 150 - 400 K/cumm [facility] Comment:Testing performed by : [address], [address] MPV 11.0 9.1 - 12.3 fL [facility] Comment:Testing performed by : [address], [address] RBC 2.80(L) 3.90 - 5.20 M/cumm [facility] Comment:Testing performed by : [address], [address] MCV 103.6(H) 81.3 - 96.4 fL [facility] Comment:Testing performed by : [address], [address] MCH 32.9 27.1 - 33.3 pg [facility] Comment:Testing performed by : [address], [address] MCHC 31.7(L) 32.3 - 35.7 g/dL [facility] Comment:Testing performed by : [address], [address] RDW CV 16.5(H) 11.1 - 14.9 % [facility] Comment:Testing performed by : [address], [address] RDW SD 62.3(H) 35.7 - 48.1 fL [facility] Comment:Testing performed by : [address], [address] NRBC abs 0.00 0.00 - 0.01 K/cumm [facility] Comment:Testing performed by : [address] [address] Blood 11/20/2024 5:33 AM RAISE MINER 11/20/2024 5:56 AM RAISE MINER us Ivan Vargas MD LAB BLOOD ORDERABLES Final Re sult [facility] [address] [facility] Department [place] [address] * (ABNORMAL) Comprehensive metabolic panel (11/20/2024 5:33 AM RAISE MINER) Sodium 134(L) 135 - 145 mmol/L Comment:Testing performed by : [address] [address] Potassium, pl 3.8 3.3 - 4.9 mmol/L [facility] Comment:Testing performed by : [address] [address] Chloride 91(L) 97 - 110 mmol/L [facility] Comment:Testing performed by : [address] [address] CO2 26 22 - 32 mmol/L [facility] Comment:Testing performed by : [address] [address] Anion gap 17(H) 2 - 15 mmol/L [facility] Comment:Testing performed by : [address] [address] BUN 51(H) 6 - 25 mg/dL [facility] Comment:Testing performed by : [address] [address] Creatinine 2.20(H) 0.60 - 1.10 mg/dL [facility] Comment:Testing performed by : [address] [address] Glucose 149 70 - 199 mg/dL DAY[facility] [...] was last revised 2022. Testing performed by: [address] [address] Calcium 10.3 8.5 - 10.3 mg/dL [facility] Comment:Testing performed by : [address] [address] Bilirubin, total 1.3(H) 0.1 - 1.2 mg/dL [facility] Comment:Testing performed by : [address] [address] Protein, pl 6.6 6.5 - 8.5 g/dL [facility] Comment:Testing performed by : [address] [address] Albumin 3.8 3.5 - 5.0 g/dL [facility] Comment:Testing performed by : [address] [address] Alk phos 391(H) 40 - 130 Units/L [facility] Comment:Testing performed by : [address] [address] ALT 15 7 - 45 Units/L [facility] Comment:Testing performed by : [address] [address] AST 29 10 - 45 Units/L [facility] Comment:Testing performed by : [address] [address] Blood 11/20/2024 5:33 AM RAISE MINER 11/20/2024 5:56 AM RAISE MINER us Ivan Vargas MD LAB BLOOD ORDERABLES Final Re sult [facility] [address] [facility] Department [place] [address] * (ABNORMAL) POCT glucose (11/19/2024 8:57 PM RAISE MINER) Glucose, POC 254(H) 70 - 199 mg/dL Comment:Testing performed by : [address] [address] Glucose comment 1 Use This Result DAYANA Comment:Testing performed by : [address] [address] Blood 11/19/2024 8:57 PM RAISE MINER 11/19/2024 8:57 PM RAISE MINER us Joe Herron MD LAB POCT ORDERABLES - DEVICE Final Result Performing Organization Address [facility] Co de Phone Number MARY ALICE[address] [place] [address] * (ABNORMAL) POCT glucose (11/19/2024 5:10 PM RAISE MINER) Glucose, POC 225(H) 70 - 199 mg/dL Comment:Testing performed by : [address] [address] Blood 11/19/2024 5:10 PM RAISE MINER 11/19/2024 5:10 PM RAISE MINER us Joe Herron MD LAB POCT ORDERABLES - DEVICE Final Result Performing Organization Address [facility] Co de Phone Number [address] [place] [address] * POCT glucose (11/19/2024 12:24 PM RAISE MINER) Glucose, POC 191 70 - 199 mg/dL Comment:Testing performed by : [address] [address] Blood 11/19/2024 12:2 4 PM RAISE MINER 11/19/2024 12:24 PM RAISE MINER us Joe Herron MD LAB POCT ORDERABLES - DEVICE Final Result Performing Organization Address [facility] Co de Phone Number DAYAAN [address] [address] * POCT glucose (11/19/2024 11:36 AM RAISE MINER) [facility] Glucose, POC 181 70 - 199 mg/dL Comment:Testing performed by : [address] [address] Blood 11/19/2024 11:3 6 AM RAISE MINER 11/19/2024 11:36 AM RAISE MINER Joe Herron MD LAB POCT ORDERABLES - DEVICE Final Result Performing Organization Address [facility] de Phone Number DAYANA [address] [address] * POCT glucose (11/19/2024 8:22 AM RAISE MINER) [facility] Glucose, POC 163 70 - 199 mg/dL Comment:Testing performed by : [facility], [address] [place] [address]., [address] Glucose comment 1 Use This Result DAYANA Comment:Testing performed by : [address] [address] Blood 11/19/2024 8:22 AM RAISE MINER 11/19/2024 8:22 AM RAISE MINER us Joe Herron MD LAB POCT ORDERABLES - DEVICE Final Result Performing Organization Address [facility] Co de Phone Number MARY ALICE[address] [address] * (ABNORMAL) eGFR (11/19/2024 6:23 AM RAISE MINER) [facility] eGFR 28(L) >=60 mL/min/1. 73 m2 [...] was last reviewed 2021. Testing performed by: [address] [address] Blood 11/19/2024 6:23 AM RAISE MINER 11/19/2024 6:31 AM RAISE MINER us Ivan Vargas MD LAB BLOOD ORDERABLES Final Re sult DAYANA [facility] Department of Laboratories [place], [place] [id number] * (ABNORMAL) Differential, auto (11/19/2024 6:23 AM RAISE MINER) Neutrophil abs 3.7 1.5 - 6.5 K/cumm Comment:Testing performed by : [address] [address] Imm gran abs 0.1 0.0 - 0.1 K/cumm DAYANA Comment:Testing performed by : [address] [address] Lymphocyte abs 1.1 0.8 - 3.3 K/cumm DAYANA Comment:Testing performed by : [address] [address] Monocyte abs 1.0(H) 0.2 - 0.8 K/cumm DAYANA Comment:Testing performed by : [address] [address] Eosinophil abs 1.1(H) 0.0 - 0.5 K/cumm DAYANA Comment:Testing performed by : [address] [address] Basophil abs 0.1 0.0 - 0.1 K/cumm DAYANA Comment:Testing performed by : [address] [address] Neutrophil pct 52.7 % [facility] Comment: Interpretive Data Percent cell count reference ranges are not reported, since discordance with absolute values may lead to misinterpretation of CBC data. Current Interpretive Data was last revised on 2018. Testing performed by: [address] [address] Imm gran pct 1.1 % DAYANA Comment: Interpretive Data Percent cell count reference ranges are not reported, since discordance with absolute values may lead to misinterpretation of CBC data. Current Interpretive Data was last revised on 2018. Testing performed by: [address] [address] Lymphocyte pct 15.8 % [facility] Comment: Interpretive Data Percent cell count reference ranges are not reported, since discordance with absolute values may lead to misinterpretation of CBC data. Current Interpretive Data was last revised on 2018. Testing performed by: [address] [address] Monocyte pct 14.2 % [facility] Comment: Interpretive Data Percent cell count reference ranges are not reported, since discordance with absolute values may lead to misinterpretation of CBC data. Current Interpretive Data was last revised on 2018. Testing performed by: [address] [address] Eosinophil pct 15.2 % [facility] Comment: Interpretive Data Percent cell count reference ranges are not reported, since discordance with absolute values may lead to misinterpretation of CBC data. Current Interpretive Data was last revised on 2018. Testing performed by: [address] [address] Basophil pct 1.0 % [facility] Comment: Interpretive Data Percent cell count reference ranges are not reported, since discordance with absolute values may lead to misinterpretation of CBC data. Current Interpretive Data was last revised on 2018. Testing performed by: [address] [address] Blood 11/19/2024 6:23 AM RAISE MINER 11/19/2024 6:31 AM RAISE MINER us Ivan Vargas MD LAB BLOOD ORDERABLES Final Re sult [facility] [address] [facility] Department [place] [address] * (ABNORMAL) CBC with auto differential (11/19/2024 6:23 AM RAISE MINER) WBC 7.0 3.8 - 9.9 K/cumm Comment:Testing performed by : [address] [address] Hgb 8.9(L) 11.9 - 15.5 g/dL DAYANA Comment:Testing performed by : [address] [address] Hct 28.1(L) 35.6 - 45.5 % DAYANA Comment:Testing performed by : [address] [address] Plt 268 150 - 400 K/cumm DAYANA Comment:Testing performed by : [address] [address] MPV 11.2 9.1 - 12.3 fL DAYANA Comment:Testing performed by : [address] [address] RBC 2.75(L) 3.90 - 5.20 M/cumm DAYANA Comment:Testing performed by : [address] [address] MCV 102.2(H) 81.3 - 96.4 fL DAYANA Comment:Testing performed by : [address] [address] MCH 32.4 27.1 - 33.3 pg DAYANA CARPIO Comment:Testing performed by : [address] [address] MCHC 31.7(L) 32.3 - 35.7 g/dL DAYANA CARPIO Comment:Testing performed by : [facility], [address] [place] [address]., [address] RDW CV 16.5(H) 11.1 - 14.9 % DAYANA CARPIO Comment:Testing performed by : [address] [address] RDW SD 60.4(H) 35.7 - 48.1 fL DAYANA CARPIO Comment:Testing performed by : [address] [address] NRBC abs 0.00 0.00 - 0.01 K/cumm DAYANA CARPIO Comment:Testing performed by : [address] [address] Blood 11/19/2024 6:23 AM RAISE MINER 11/19/2024 6:31 AM RAISE MINER Ivan Vargas MD LAB BLOOD ORDERABLES Final Re sult Performing Organization Address [facility] Co de Phone Number MARY ALICE[address] [place] [address] * Ammonia (11/19/2024 6:23 AM RAISE MINER) Ammonia 24 <=50 mcmol/L Comment: Please note on 02/21/2024 the unit of measure changed from mcg/dL to mcmol/L. Current Interpretive Data was last revised on 2024. Testing performed by: [address] [address] Blood 11/19/2024 6:23 AM RAISE MINER 11/19/2024 6:27 AM RAISE MINER Ivan Vargas MD LAB BLOOD ORDERABLES Final Re sult Performing Organization Address City/[facility]/ZIP Co de Phone Number MARY ALICE[address] [place] [address] * (ABNORMAL) Comprehensive metabolic panel (11/19/2024 6:23 AM RAISE MINER) Sodium 133(L) 135 - 145 mmol/L Comment:Testing performed by : [address] [address] Potassium, pl 3.6 3.3 - 4.9 mmol/L DAYANA Comment:Testing performed by : [address], [place]., [address] Chloride 92(L) 97 - 110 mmol/L DAYANA Comment:Testing performed by : [address], [place]., [address] CO2 27 22 - 32 mmol/L DAYANA Comment:Testing performed by : [address], [place]., [address] Anion gap 14 2 - 15 mmol/L DAYANA Comment:Testing performed by : [address] [address] BUN 46(H) 6 - 25 mg/dL [facility] Comment:Testing performed by : [address] [address] Creatinine 1.90(H) 0.60 - 1.10 mg/dL [facility] Comment:Testing performed by : [address] [address] Glucose 151 70 - 199 mg/dL [facility] Comment: Interpretive Data Fasting glucose >/= [...] was last revised 2022. Testing performed by: [address] [address] Calcium 10.2 8.5 - 10.3 mg/dL [facility] Comment:Testing performed by : [address] [address] Bilirubin, total 1.4(H) 0.1 - 1.2 mg/dL [facility] Comment:Testing performed by : [address] [address] Protein, pl 6.3(L) 6.5 - 8.5 g/dL DAYANA CARPIO Comment:Testing performed by : [address] [address] Albumin 3.6 3.5 - 5.0 g/dL DAYANA CARPIO Comment:Testing performed by : [address] [address] Alk phos 390(H) 40 - 130 Units/L DAYANA CARPIO Comment:Testing performed by : [address], [place]., [address] ALT 17 7 - 45 Units/L DAYANA CARPIO Comment:Testing performed by : [address] [address] AST 31 10 - 45 Units/L DAYANA CARPIO Comment:Testing performed by : [address] [address] Blood 11/19/2024 6:23 AM RAISE MINER 11/19/2024 6:31 AM RAISE MINER Ivan Vargas MD LAB BLOOD ORDERABLES Final Re sult DAYANA [address] [facility] Department of Laboratories [place], [place] [id number] * (ABNORMAL) POCT glucose (11/18/2024 8:46 PM RAISE MINER) [facility] Glucose, POC 234(H) 70 - 199 mg/dL Comment:Testing performed by : [address] [address] Glucose comment 1 Use This Result DAYANA CARPIO Comment:Testing performed by : [address] [address] Glucose comment 2 RN/MD Notified DAYANA CARPIO Comment:Testing performed by : [address] [address] Blood 11/18/2024 8:46 PM RAISE MINER 11/18/2024 8:46 PM RAISE MINER us Ivan Vargas MD LAB POCT ORDERABLES - DEVICE Final Result DAYANA [address] [facility] Department [place] [address] * CT Abdomen Pelvis WO Contrast (11/18/2024 8:34 PM RAISE MINER) Anatomical Region Laterality Modality Body N/A Computed Tomogra phy 11/18/2024 9:07 PM RAISE MINER Narrative 11/18/2024 9:19 PM RAISE MINER EXAM DESCRIPTION: CT ABDOMEN PELVIS WO CONTRAST [...] Pedro Alexis M.D. KT: KIM Report ID: [id number] Reading Location: [id number] Procedure Note Pedro Alexis MD - 11/18/2024 [...] Pedro Alexis M.D. KT: KT Report ID: [id number] Reading Location: [place] [address] Ivan Vargas MD IMG CT PROCEDURES Final Resul t * (ABNORMAL) POCT glucose (11/18/2024 5:49 PM RAISE MINER) [facility] Signature Glucose, POC 216(H) 70 - 199 mg/dL Comment:Testing performed by : [address] [address] Glucose comment 1 RN/MD Notified DAYANA CARPIO Comment:Testing performed by : [address] [address] Glucose comment 2 Use This Result DAYANA Comment:Testing performed by : [address] [address] Blood 11/18/2024 5:49 PM RAISE MINER 11/18/2024 5:49 PM RAISE MINER Ivan Vargas MD LAB POCT ORDERABLES - DEVICE Final Result DAYANA CARPIO [address] [facility] Department [place] [address] * (ABNORMAL) POCT glucose (11/18/2024 12:43 PM RAISE MINER) [facility] Glucose, POC 232(H) 70 - 199 mg/dL Comment:Testing performed by : [address] [address] Glucose comment 1 Use This Result DAYANA Comment:Testing performed by : [address] [address] Blood 11/18/2024 12:4 3 PM RAISE MINER 11/18/2024 12:43 PM RAISE MINER Ivan Vargas MD LAB POCT ORDERABLES - DEVICE Final Result Performing Organization Address [facility] Co de Phone Number MARY ALICE[address] [place] [address] * POCT glucose (11/18/2024 7:55 AM RAISE MINER) [facility] Glucose, POC 145 70 - 199 mg/dL Comment:Testing performed by : [address] [address] Glucose comment 1 Use This Result DAYANA Comment:Testing performed by : [address] [address] Glucose comment 2 RN/MD Notified DAYANA Comment:Testing performed by : [address] [address] Blood 11/18/2024 7:55 AM RAISE MINER 11/18/2024 7:55 AM RAISE MINER Ivan Vargas MD LAB POCT ORDERABLES - DEVICE Final Result Performing Organization Address [facility] Co de Phone Number [address] [place] [address] * (ABNORMAL) Differential, auto (11/18/2024 6:35 AM RAISE MINER) [facility] Neutrophil abs 3.7 1.5 - 6.5 K/cumm Comment:Testing performed by : [address] [address] Imm gran abs 0.1 0.0 - 0.1 K/cumm [facility] Comment:Testing performed by : [address] [address] Lymphocyte abs 1.0 0.8 - 3.3 K/cumm [facility] Comment:Testing performed by : [address], [place]., [address] Monocyte abs 1.2(H) 0.2 - 0.8 K/cumm [facility] Comment:Testing performed by : [address], [place]., [address] Eosinophil abs 1.0(H) 0.0 - 0.5 K/cumm [facility] Comment:Testing performed by : [address] [address] Basophil abs 0.1 0.0 - 0.1 K/cumm [facility] Comment:Testing performed by : [address] [address] Neutrophil pct 52.9 % [facility] Comment: Interpretive Data Percent cell count reference ranges are not reported, since discordance with absolute values may lead to misinterpretation of CBC data. Current Interpretive Data was last revised on 2018. Testing performed by: [address] [address] Imm gran pct 1.1 % [facility] Comment: Interpretive Data Percent cell count reference ranges are not reported, since discordance with absolute values may lead to misinterpretation of CBC data. Current Interpretive Data was last revised on 2018. Testing performed by: [address] [address] Lymphocyte pct 14.4 % CERNER Comment: Interpretive Data Percent cell count reference ranges are not reported, since discordance with absolute values may lead to misinterpretation of CBC data. Current Interpretive Data was last revised on 2018. Testing performed by: [address] [address] Monocyte pct 17.1 % CERNER Comment: Interpretive Data Percent cell count reference ranges are not reported, since discordance with absolute values may lead to misinterpretation of CBC data. Current Interpretive Data was last revised on 2018. Testing performed by: [address] [address] Eosinophil pct 13.5 % DAYANA CARPIO Comment: Interpretive Data Percent cell count reference ranges are not reported, since discordance with absolute values may lead to misinterpretation of CBC data. Current Interpretive Data was last revised on 2018. Testing performed by: [address] [address] Basophil pct 1.0 % DAYANA CARPIO Comment: Interpretive Data Percent cell count reference ranges are not reported, since discordance with absolute values may lead to misinterpretation of CBC data. Current Interpretive Data was last revised on 2018. Testing performed by: [address] [address] Blood 11/18/2024 6:35 AM RAISE MINER 11/18/2024 6:57 AM RAISE MINER us Ivan Vargas MD LAB BLOOD ORDERABLES Final Re sult DAYANA [facility] Department [place] [address] * (ABNORMAL) CBC with auto differential (11/18/2024 6:35 AM RAISE MINER) WBC 7.1 3.8 - 9.9 K/cumm Comment:Testing performed by : [address] [address] Hgb 9.0(L) 11.9 - 15.5 g/dL DAYANA CARPIO Comment:Testing performed by : [address] [address] Hct 28.2(L) 35.6 - 45.5 % DAYANA CARPIO Comment:Testing performed by : [address] [address] Plt 247 150 - 400 K/cumm DAYANA CARPIO Comment:Testing performed by : [address] [address] MPV 11.1 9.1 - 12.3 fL DAYANA CARPIO Comment:Testing performed by : [address] [place]., [address] RBC 2.73(L) 3.90 - 5.20 M/cumm DAYANA Comment:Testing performed by : [facility], [address] [place] [address]., [address] MCV 103.3(H) 81.3 - 96.4 fL DAYANA Comment:Testing performed by : [address], [address] MCH 33.0 27.1 - 33.3 pg DAYANA Comment:Testing performed by : [address], [address] MCHC 31.9(L) 32.3 - 35.7 g/dL DAYANA Comment:Testing performed by : [address], [address] RDW CV 16.6(H) 11.1 - 14.9 % DAYANA Comment:Testing performed by : [address], [address] RDW SD 62.6(H) 35.7 - 48.1 fL DAYANA Comment:Testing performed by : [address] [address] NRBC abs 0.00 0.00 - 0.01 K/cumm DAYANA Comment:Testing performed by : [address] [address] Blood 11/18/2024 6:35 AM RAISE MINER 11/18/2024 6:57 AM RAISE MINER us Ivan Vargas MD LAB BLOOD ORDERABLES Final Re sult [facility] [address] [facility] Department [place] [address] * (ABNORMAL) eGFR (11/18/2024 5:52 AM RAISE MINER) eGFR 28(L) >=60 mL/min/1. 73 m2 Comment: [...] was last reviewed 2021. Testing performed by: [address] [address] Blood 11/18/2024 5:52 AM RAISE MINER 11/18/2024 6:24 AM RAISE MINER Ivan Vargas MD LAB BLOOD ORDERABLES Final Re sult Performing Organization Address City/[facility]/ZIP Co de Phone Number [address] [place] [address] * Folate (11/18/2024 5:52 AM RAISE MINER) Folic acid >20.0 >=5.0 ng/mL Comment:Testing performed by : [address] [address] Blood 11/18/2024 5:52 AM RAISE MINER 11/18/2024 6:24 AM RAISE MINER Ivan Vargas MD LAB BLOOD ORDERABLES Final Re sult [address] [place] [address] * Vitamin B12 (11/18/2024 5:52 AM RAISE MINER) Vitamin B12 910 230 - 1,250 pg/mL Comment:Testing performed by : [address] [place] [address] Blood 11/18/2024 5:52 AM RAISE MINER 11/18/2024 6:24 AM RAISE MINER us Ivan Vargas MD LAB BLOOD ORDERABLES Final Re sult [facility] [address] [facility] Department [place] [address] * (ABNORMAL) Comprehensive metabolic panel (11/18/2024 5:52 AM RAISE MINER) Sodium 132(L) 135 - 145 mmol/L Comment:Testing performed by : [address] [address] Potassium, pl 3.9 3.3 - 4.9 mmol/L DAYANA Comment:Testing performed by : [address] [address] Chloride 92(L) 97 - 110 mmol/L DAYANA Comment:Testing performed by : [address] [address] CO2 27 22 - 32 mmol/L DAYANA Comment:Testing performed by : [address] [address] Anion gap 13 2 - 15 mmol/L DAYANA Comment:Testing performed by : [address] [address] BUN 43(H) 6 - 25 mg/dL DAYANA Comment:Testing performed by : [address] [address] Creatinine 1.90(H) 0.60 - 1.10 mg/dL DAYANA Comment:Testing performed by : [address] [address] Glucose 140 70 - 199 mg/dL DAYANA [...] was last revised 2022. Testing performed by: [address] [address] Calcium 10.0 8.5 - 10.3 mg/dL DAYANA Comment:Testing performed by : [address] [address] Bilirubin, total 1.5(H) 0.1 - 1.2 mg/dL DAYANA Comment:Testing performed by : [address] [address] Protein, pl 6.3(L) 6.5 - 8.5 g/dL DAYANA Comment:Testing performed by : [address] [address] Albumin 3.8 3.5 - 5.0 g/dL DAYANA Comment:Testing performed by : [address] [address] Alk phos 369(H) 40 - 130 Units/L DAYANA Comment:Testing performed by : [address] [address] ALT 17 7 - 45 Units/L DAYANA Comment:Testing performed by : [address] [address] AST 36 10 - 45 Units/L DAYANA Comment:Testing performed by : [address] [address] Blood 11/18/2024 5:52 AM RAISE MINER 11/18/2024 6:24 AM RAISE MINER us Ivan Vargas MD LAB BLOOD ORDERABLES Final Re sult DAYANA CARPIO [address] [facility] Department [place] [address] * (ABNORMAL) POCT glucose (11/17/2024 8:52 PM RAISE MINER) Glucose, POC 275(H) 70 - 199 mg/dL Comment:Testing performed by : [address] [address] Blood 11/17/2024 8:52 PM RAISE MINER 11/17/2024 8:52 PM RAISE MINER Result [facility] Ivan Vargas MD LAB POCT ORDERABLES - DEVICE Final Result Performing Organization Address [facility] de Phone Number [address] [place] [address] * (ABNORMAL) POCT glucose (11/17/2024 6:05 PM RAISE MINER) Glucose, POC 280(H) 70 - 199 mg/dL Comment:Testing performed by : [address] [address] Glucose comment 1 Use This Result DAYANA Comment:Testing performed by : [address] [address] Glucose comment 2 RN/MD Notified DAYANA Comment:Testing performed by : [address] [address] Blood 11/17/2024 6:05 PM RAISE MINER 11/17/2024 6:05 PM RAISE MINER Ivan Vargas MD LAB POCT ORDERABLES - DEVICE Final Result Performing Organization Address [facility] de Phone Number [address] [address] * (ABNORMAL) POCT glucose (11/17/2024 1:08 PM RAISE MINER) Glucose, POC 236(H) 70 - 199 mg/dL Comment:Testing performed by : [address] [address] Glucose comment 1 Use This Result DAYANA Comment:Testing performed by : [address] [address] Glucose comment 2 RN/MD Notified DAYANA Comment:Testing performed by : [address] [address] Blood 11/17/2024 1:08 PM RAISE MINER 11/17/2024 1:08 PM RAISE MINER Ivan Vargas MD LAB POCT ORDERABLES - DEVICE Final Result Performing Organization Address [facility] de Phone Number DAYANA [address] [place] [address] * POCT glucose (11/17/2024 9:20 AM RAISE MINER) [facility] Glucose, POC 146 70 - 199 mg/dL Comment:Testing performed by : [address] [address] Glucose comment 1 Use This Result DAYANA CARPIO Comment:Testing performed by : [address] [address] Glucose comment 2 RN/MD Notified DAYANA Comment:Testing performed by : [address] [address] Blood 11/17/2024 9:20 AM RAISE MINER 11/17/2024 9:20 AM RAISE MINER Ivan Vargas MD LAB POCT ORDERABLES - DEVICE Final Result Performing Organization Address [facility] de Phone Number MARY ALICENIKOS [address] [address] * (ABNORMAL) eGFR (11/17/2024 7:01 AM RAISE MINER) [facility] eGFR 28(L) >=60 mL/min/1. 73 m2 [...] was last reviewed 2021. Testing performed by: [address] [address] Blood 11/17/2024 7:01 AM RAISE MINER 11/17/2024 7:33 AM RAISE MINER us Ivan Vargas MD LAB BLOOD ORDERABLES Final Re sult DAYANA [facility] Department [place] [address] * (ABNORMAL) Differential, auto (11/17/2024 7:01 AM RAISE MINER) Neutrophil abs 3.8 1.5 - 6.5 K/cumm Comment:Testing performed by : [address] [address] Imm gran abs 0.1 0.0 - 0.1 K/cumm DAYANA Comment:Testing performed by : [address] [address] Lymphocyte abs 0.8 0.8 - 3.3 K/cumm DAYANA Comment:Testing performed by : [address] [address] Monocyte abs 1.0(H) 0.2 - 0.8 K/cumm DAYANA Comment:Testing performed by : [address] [address] Eosinophil abs 0.7(H) 0.0 - 0.5 K/cumm DAYANA Comment:Testing performed by : [address] [address] Basophil abs 0.1 0.0 - 0.1 K/cumm DAYANA Comment:Testing performed by : [address] [address] Neutrophil pct 58.2 % [facility] Comment: Interpretive Data Percent cell count reference ranges are not reported, since discordance with absolute values may lead to misinterpretation of CBC data. Current Interpretive Data was last revised on 2018. Testing performed by: [address] [address] Imm gran pct 0.9 % [facility] Comment: Interpretive Data Percent cell count reference ranges are not reported, since discordance with absolute values may lead to misinterpretation of CBC data. Current Interpretive Data was last revised on 2018. Testing performed by: [address] [address] Lymphocyte pct 12.4 % [facility] Comment: Interpretive Data Percent cell count reference ranges are not reported, since discordance with absolute values may lead to misinterpretation of CBC data. Current Interpretive Data was last revised on 2018. Testing performed by: [address] [address] Monocyte pct 15.8 % [facility] Comment: Interpretive Data Percent cell count reference ranges are not reported, since discordance with absolute values may lead to misinterpretation of CBC data. Current Interpretive Data was last revised on 2018. Testing performed by: [address] [address] Eosinophil pct 11.5 % [facility] Comment: Interpretive Data Percent cell count reference ranges are not reported, since discordance with absolute values may lead to misinterpretation of CBC data. Current Interpretive Data was last revised on 2018. Testing performed by: [address] [address] Basophil pct 1.2 % [facility] Comment: Interpretive Data Percent cell count reference ranges are not reported, since discordance with absolute values may lead to misinterpretation of CBC data. Current Interpretive Data was last revised on 2018. Testing performed by: [address] [address] Blood 11/17/2024 7:01 AM RAISE MINER 11/17/2024 7:34 AM RAISE MINER us Ivan Vargas MD LAB BLOOD ORDERABLES Final Re sult DAYANA [address] [facility] Department [place] [address] * (ABNORMAL) CBC with auto differential (11/17/2024 7:01 AM RAISE MINER) WBC 6.5 3.8 - 9.9 K/cumm Comment:Testing performed by : [address] [address] Hgb 8.9(L) 11.9 - 15.5 g/dL DAYANA Comment:Testing performed by : [address] [address] Hct 27.6(L) 35.6 - 45.5 % DAYANA Comment:Testing performed by : [address] [address] Plt 227 150 - 400 K/cumm DAYANA Comment:Testing performed by : [address] [address] MPV 11.2 9.1 - 12.3 fL DAYANA Comment:Testing performed by : [address] [address] RBC 2.70(L) 3.90 - 5.20 M/cumm DAYANA Comment:Testing performed by : [address] [address] MCV 102.2(H) 81.3 - 96.4 fL DAYANA Comment:Testing performed by : [address] [address] MCH 33.0 27.1 - 33.3 pg DAYANA Comment:Testing performed by : [address] [address] MCHC 32.2(L) 32.3 - 35.7 g/dL DAYANA Comment:Testing performed by : [address], [address] RDW CV 16.6(H) 11.1 - 14.9 % DAYANA CARPIO Comment:Testing performed by : [address] [address] RDW SD 60.4(H) 35.7 - 48.1 fL DAYANA CARPIO Comment:Testing performed by : [address] [address] NRBC abs 0.00 0.00 - 0.01 K/cumm DAYANA CARPIO Comment:Testing performed by : [address] [address] Blood 11/17/2024 7:01 AM RAISE MINER 11/17/2024 7:34 AM RAISE MINER us Ivan Vargas MD LAB BLOOD ORDERABLES Final Re sult DAYANA [facility] Department [place] [address] * (ABNORMAL) Comprehensive metabolic panel (11/17/2024 7:01 AM RAISE MINER) Sodium 135 135 - 145 mmol/L Comment:Testing performed by : [address] [address] Potassium, pl 3.3 3.3 - 4.9 mmol/L DAYANA CARPIO Comment:Testing performed by : [address] [address] Chloride 92(L) 97 - 110 mmol/L DAYANA Comment:Testing performed by : [address] [address] CO2 29 22 - 32 mmol/L DAYANA Comment:Testing performed by : [address] [address] Anion gap 14 2 - 15 mmol/L DAYANA Comment:Testing performed by : [address] [address] BUN 40(H) 6 - 25 mg/dL DAYANA CARPIO Comment:Testing performed by : [address] [address] Creatinine 1.90(H) 0.60 - 1.10 mg/dL DAYANA CARPIO Comment:Testing performed by : [address] [address] Glucose 146 70 - 199 mg/dL DAYANA Comment: Interpretive [...] was last revised 2022. Testing performed by: [address] [address] Calcium 9.3 8.5 - 10.3 mg/dL DAYANA Comment:Testing performed by : [address] [address] Bilirubin, total 1.6(H) 0.1 - 1.2 mg/dL DAYANA Comment:Testing performed by : [address] [address] Protein, pl 6.1(L) 6.5 - 8.5 g/dL DAYANA Comment:Testing performed by : [address] [address] Albumin 3.8 3.5 - 5.0 g/dL DAYANA Comment:Testing performed by : [address] [address] Alk phos 309(H) 40 - 130 Units/L DAYANA Comment:Testing performed by : [address] [address] ALT 14 7 - 45 Units/L DAYANA Comment:Testing performed by : [address] [address] AST 32 10 - 45 Units/L DAYANA Comment:Testing performed by : [address] [address] Blood 11/17/2024 7:01 AM RAISE MINER 11/17/2024 7:33 AM RAISE MINER Ivan Vargas MD LAB BLOOD ORDERABLES Final Re sult Performing Organization Address [facility] Co de Phone Number DAYANA [address] [facility] [place] [address] * (ABNORMAL) POCT glucose (11/16/2024 7:44 PM RAISE MINER) Glucose, POC 205(H) 70 - 199 mg/dL Comment:Testing performed by : [address] [address] Glucose comment 1 Use This Result DAYANA Comment:Testing performed by : [address] [address] Glucose comment 2 RN/MD Notified DAYANA Comment:Testing performed by : [address] [address] Blood 11/16/2024 7:44 PM RAISE MINER 11/16/2024 7:44 PM RAISE MINER Ivan Vargas MD LAB POCT ORDERABLES - DEVICE Final Result Performing Organization Address [facility] Co de Phone Number DAYANA [facility] [place] [address] * POCT glucose (11/16/2024 6:33 PM RAISE MINER) Glucose, POC 155 70 - 199 mg/dL Comment:Testing performed by : [address] [address] Glucose comment 1 Use This Result DAYANA Comment:Testing performed by : [address] [address] Glucose comment 2 RN/MD Notified DAYANA Comment:Testing performed by : [address] [address] Blood 11/16/2024 6:33 PM RAISE MINER 11/16/2024 6:33 PM RAISE MINER Ivan Vargas MD LAB POCT ORDERABLES - DEVICE Final Result Performing Organization Address [facility] Co de Phone Number DAYANA [facility] [place] [address] * (ABNORMAL) POCT glucose (11/16/2024 11:54 AM RAISE MINER) [facility] Glucose, POC 203(H) 70 - 199 mg/dL Comment:Testing performed by : [address] [address] Glucose comment 1 Use This Result DAYANA Comment:Testing performed by : [address] [address] Glucose comment 2 RN/MD Notified DAYANA Comment:Testing performed by : [address] [address] Blood 11/16/2024 11:5 4 AM RAISE MINER 11/16/2024 11:54 AM RAISE MINER Ivan Vargas MD LAB POCT ORDERABLES - DEVICE Final Result Performing Organization Address [facility] Co de Phone Number DAYANA [address] [place] [address] * (ABNORMAL) eGFR (11/16/2024 9:56 AM RAISE MINER) [facility] eGFR 26(L) >=60 mL/min/1. 73 m2 [...] was last reviewed 2021. Testing performed by: [address] [address] Blood 11/16/2024 9:56 AM RAISE MINER 11/16/2024 10:30 AM RAISE MINER us Ivan Vargas MD LAB BLOOD ORDERABLES Final Re sult DAYANA [address] [facility] Department [place] [address] * (ABNORMAL) Differential, auto (11/16/2024 9:56 AM RAISE MINER) Neutrophil abs 4.2 1.5 - 6.5 K/cumm Comment:Testing performed by : [address] [address] Imm gran abs 0.1 0.0 - 0.1 K/cumm DAYANA Comment:Testing performed by : [address] [address] Lymphocyte abs 0.5(L) 0.8 - 3.3 K/cumm DAYANA Comment:Testing performed by : [address] [address] Monocyte abs 0.8 0.2 - 0.8 K/cumm DAYANA Comment:Testing performed by : [address] [address] Eosinophil abs 0.6(H) 0.0 - 0.5 K/cumm DAYANA Comment:Testing performed by : [address] [address] Basophil abs 0.1 0.0 - 0.1 K/cumm DAYANA Comment:Testing performed by : [address] [address] Neutrophil pct 67.6 % DAYANA Comment: Interpretive Data Percent cell count reference ranges are not reported, since discordance with absolute values may lead to misinterpretation of CBC data. Current Interpretive Data was last revised on 2018. Testing performed by: [address] [address] Imm gran pct 1.0 % [facility] Comment: Interpretive Data Percent cell count reference ranges are not reported, since discordance with absolute values may lead to misinterpretation of CBC data. Current Interpretive Data was last revised on 2018. Testing performed by: [address] [address] Lymphocyte pct 8.2 % [facility] Comment: Interpretive Data Percent cell count reference ranges are not reported, since discordance with absolute values may lead to misinterpretation of CBC data. Current Interpretive Data was last revised on 2018. Testing performed by: [address] [address] Monocyte pct 12.5 % [facility] Comment: Interpretive Data Percent cell count reference ranges are not reported, since discordance with absolute values may lead to misinterpretation of CBC data. Current Interpretive Data was last revised on 2018. Testing performed by: [address] [address] Eosinophil pct 9.6 % [facility] Comment: Interpretive Data Percent cell count reference ranges are not reported, since discordance with absolute values may lead to misinterpretation of CBC data. Current Interpretive Data was last revised on 2018. Testing performed by: [address] [address] Basophil pct 1.1 % [facility] Comment: Interpretive Data Percent cell count reference ranges are not reported, since discordance with absolute values may lead to misinterpretation of CBC data. Current Interpretive Data was last revised on 2018. Testing performed by: [address] [address] Blood 11/16/2024 9:56 AM RAISE MINER 11/16/2024 10:29 AM RAISE MINER us Ivan Vargas MD LAB BLOOD ORDERABLES Final Re sult DAYANA [address] [facility] Department [place] [address] * (ABNORMAL) CBC with auto differential (11/16/2024 9:56 AM RAISE MINER) [facility] WBC 6.2 3.8 - 9.9 K/cumm Comment:Testing performed by : [address] [address] Hgb 8.4(L) 11.9 - 15.5 g/dL DAYANA Comment:Testing performed by : [address], [address] Hct 26.7(L) 35.6 - 45.5 % DAYANA Comment:Testing performed by : [address], [address] Plt 216 150 - 400 K/cumm DAYANA Comment:Testing performed by : [address], [address] MPV 11.1 9.1 - 12.3 fL DAYANA Comment:Testing performed by : [address], [address] RBC 2.60(L) 3.90 - 5.20 M/cumm DAYANA Comment:Testing performed by : [address], [address] MCV 102.7(H) 81.3 - 96.4 fL DAYANA Comment:Testing performed by : [address] [address] MCH 32.3 27.1 - 33.3 pg DAYANA Comment:Testing performed by : [address], [address] MCHC 31.5(L) 32.3 - 35.7 g/dL DAYANA Comment:Testing performed by : [address], [address] RDW CV 16.6(H) 11.1 - 14.9 % DAYANA Comment:Testing performed by : [address], [address] RDW SD 61.2(H) 35.7 - 48.1 fL DAYANA Comment:Testing performed by : [address], [address] NRBC abs 0.00 0.00 - 0.01 K/cumm DAYANA Comment:Testing performed by : [address] [address] Blood 11/16/2024 9:56 AM RAISE MINER 11/16/2024 10:29 AM RAISE MINER Ivan Vargas MD LAB BLOOD ORDERABLES Final Re sult Performing Organization Address [facility] Co de Phone Number [facility] [address] [facility] [place] [address] * Hemoglobin A1c (11/16/2024 9:56 AM RAISE MINER) Hgb A1C 5.4 4.0 - 5.6 % Comment:Testing performed by : [address] [address] Estimated Average Glucose 108 mg/dL DAYANA Comment: The ADA recommends reporting an estimated Average Glucose (eAG) with all Hemoglobin A1c results using the equation derived from a study of 507 normal and diabetic adults. Minority populations were underrepresented and children were not included. (Diabetes Care 31:5654-3077, 2008). The eAG is not equivalent to a fasting glucose. Testing performed by: [address] [address] Blood 11/16/2024 9:56 AM RAISE MINER 11/16/2024 10:29 AM RAISE MINER Ivan Vargas MD LAB BLOOD ORDERABLES Final Re sult Performing Organization Address [facility] Co de Phone Number [facility] [address] [facility] [place] [address] * (ABNORMAL) Comprehensive metabolic panel (11/16/2024 9:56 AM RAISE MINER) Sodium 133(L) 135 - 145 mmol/L Comment:Testing performed by : [address] [address] Potassium, pl 3.1(L) 3.3 - 4.9 mmol/L MARY ALICENIKOS Comment:Testing performed by : [address] [address] Chloride 92(L) 97 - 110 mmol/L CERNIKOS Comment:Testing performed by : [address], [place]., [address] CO2 27 22 - 32 mmol/L CERNIKOS Comment:Testing performed by : [address] [address] Anion gap 14 2 - 15 mmol/L DAYANA Comment:Testing performed by : [address], [place]., [address] BUN 39(H) 6 - 25 mg/dL CERNIKOS Comment:Testing performed by : [address] [address] Creatinine 2.04(H) 0.60 - 1.10 mg/dL DAYANA Comment:Testing performed by : [address] [address] Glucose 136 70 - 199 mg/dL [facility] Comment: Interpretive Data Fasting glucose >/= [...] was last revised 2022. Testing performed by: [address] [address] Calcium 8.9 8.5 - 10.3 mg/dL [facility] Comment:Testing performed by : [address] [address] Bilirubin, total 1.7(H) 0.1 - 1.2 mg/dL DAYANA Comment:Testing performed by : [address] [address] Protein, pl 6.6 6.5 - 8.5 g/dL CERNIKOS CARPIO Comment:Testing performed by : [address] [address] Albumin 4.2 3.5 - 5.0 g/dL DAYANA CARPIO Comment:Testing performed by : [address] [address] Alk phos 247(H) 40 - 130 Units/L DAYANA CARPIO Comment:Testing performed by : [address] [address] ALT 12 7 - 45 Units/L DAYANA CARPIO Comment:Testing performed by : [address] [address] AST 30 10 - 45 Units/L DAYANA Comment:Testing performed by : [address] [address] Blood 11/16/2024 9:56 AM RAISE MINER 11/16/2024 10:30 AM RAISE MINER Ivan Vargas MD LAB BLOOD ORDERABLES Final Re sult Performing Organization Address City/[facility] Co de Phone Number DAYANA [address] [place] [address] * POCT glucose (11/16/2024 8:53 AM RAISE MINER) [facility] Glucose, POC 146 70 - 199 mg/dL Comment:Testing performed by : [address] [address] Glucose comment 1 Use This Result DAYANA CARPIO Comment:Testing performed by : [address] [address] Glucose comment 2 RN/MD Notified DAYANA CARPIO Comment:Testing performed by : [address] [address] Blood 11/16/2024 8:53 AM RAISE MINER 11/16/2024 8:53 AM RAISE MINER Ivan Vargas MD LAB POCT ORDERABLES - DEVICE Final Result Performing Organization Address City/[facility]/ZIP Co de Phone Number DAYANA [address] [place] [address] * POCT glucose (11/16/2024 12:30 AM RAISE MINER) Glucose, POC 156 70 - 199 mg/dL Comment:Testing performed by : [facility], [address] [place] [address]., [address] Glucose comment 1 Use This Result DAYANA Comment:Testing performed by : [address], [address] Glucose comment 2 RN/MD Notified DAYANA Comment:Testing performed by : [address] [address] Blood 11/16/2024 12:3 0 AM RAISE MINER 11/16/2024 12:30 AM RAISE MINER Ivan Vargas MD LAB POCT ORDERABLES - DEVICE Final Result Performing Organization Address [facility] Co de Phone Number DAYANA [address] [address] * POCT glucose (11/15/2024 8:35 PM RAISE MINER) Glucose, POC 196 70 - 199 mg/dL Comment:Testing performed by : [address] [address] Glucose comment 1 Use This Result DAYANA Comment:Testing performed by : [address] [address] Glucose comment 2 RN/MD Notified DAYANA Comment:Testing performed by : [address] [address] Blood 11/15/2024 8:35 PM RAISE MINER 11/15/2024 8:35 PM RAISE MINER Ivan Vargas MD LAB POCT ORDERABLES - DEVICE Final Result Performing Organization Address City/[facility]/ZIP Co de Phone Number [place] [id number] [place] [address] * POCT glucose (11/15/2024 5:29 PM RAISE MINER) Glucose, POC 152 70 - 199 mg/dL Comment:Testing performed by : [facility], [address] [place] [address]., [address] Blood 11/15/2024 5:29 PM RAISE MINER 11/15/2024 5:29 PM RAISE MINER Ivan Vargas MD LAB POCT ORDERABLES - DEVICE Final Result Performing Organization Address City/[facility]/ZIP Co de Phone Number [address] [place] [address] * POCT glucose (11/15/2024 1:28 PM RAISE MINER) Glucose, POC 154 70 - 199 mg/dL Comment:Testing performed by : [facility], [address] [place] [address]., [address] Blood 11/15/2024 1:28 PM RAISE MINER 11/15/2024 1:28 PM RAISE MINER Ivan Vargas MD LAB POCT ORDERABLES - DEVICE Final Result Performing Organization Address [facility] Co de Phone Number [address] [place] [employer] [address] * POCT glucose (11/15/2024 8:56 AM RAISE MINER) [facility] Glucose, POC 130 70 - 199 mg/dL Comment:Testing performed by : [address] [address] Blood 11/15/2024 8:56 AM RAISE MINER 11/15/2024 8:56 AM RAISE MINER us Ivan Vargas MD LAB POCT ORDERABLES - DEVICE Final Result Performing Organization Address City/[facility] Co de Phone Number [address] [place] [address] * (ABNORMAL) eGFR (11/15/2024 4:35 AM RAISE MINER) eGFR 24(L) >=60 mL/min/1. 73 m2 Comment: [...] was last reviewed 2021. Testing performed by: [address] [address] Blood 11/15/2024 4:35 AM RAISE MINER 11/15/2024 6:10 AM RAISE MINER us Ivan Vargas MD LAB BLOOD ORDERABLES Final Re sult DAYANA CARPIO [address] [facility] Department of Laboratories [place], [place] [id number] * (ABNORMAL) Differential, auto (11/15/2024 4:35 AM RAISE MINER) Pathologist [facility] Neutrophil abs 5.0 1.5 - 6.5 K/cumm Comment:Testing performed by : [address] [address] Imm gran abs 0.1 0.0 - 0.1 K/cumm DAYANA CARPIO Comment:Testing performed by : [address] [address] Lymphocyte abs 0.7(L) 0.8 - 3.3 K/cumm DAYANA Comment:Testing performed by : [address] [address] Monocyte abs 1.0(H) 0.2 - 0.8 K/cumm [facility] Comment:Testing performed by : [address] [address] Eosinophil abs 0.6(H) 0.0 - 0.5 K/cumm [facility] Comment:Testing performed by : [address] [address] Basophil abs 0.1 0.0 - 0.1 K/cumm [facility] Comment:Testing performed by : [address] [address] Neutrophil pct 67.6 % [facility] Comment: Interpretive Data Percent cell count reference ranges are not reported, since discordance with absolute values may lead to misinterpretation of CBC data. Current Interpretive Data was last revised on 2018. Testing performed by: [address] [address] Imm gran pct 0.8 % [facility] Comment: Interpretive Data Percent cell count reference ranges are not reported, since discordance with absolute values may lead to misinterpretation of CBC data. Current Interpretive Data was last revised on 2018. Testing performed by: [address] [address] Lymphocyte pct 8.8 % [facility] Comment: Interpretive Data Percent cell count reference ranges are not reported, since discordance with absolute values may lead to misinterpretation of CBC data. Current Interpretive Data was last revised on 2018. Testing performed by: [address] [address] Monocyte pct 13.0 % [facility] Comment: Interpretive Data Percent cell count reference ranges are not reported, since discordance with absolute values may lead to misinterpretation of CBC data. Current Interpretive Data was last revised on 2018. Testing performed by: [address] [address] Eosinophil pct 8.7 % [facility] Comment: Interpretive Data Percent cell count reference ranges are not reported, since discordance with absolute values may lead to misinterpretation of CBC data. Current Interpretive Data was last revised on 2018. Testing performed by: [address] [place]., [address] Basophil pct 1.1 % DAYANA Comment: Interpretive Data Percent cell count reference ranges are not reported, since discordance with absolute values may lead to misinterpretation of CBC data. Current Interpretive Data was last revised on 2018. Testing performed by: [address] [address] Blood 11/15/2024 4:35 AM RAISE MINER 11/15/2024 6:15 AM RAISE MINER us Ivan Vargas MD LAB BLOOD ORDERABLES Final Re sult DAYANA [address] [facility] Department [place] [address] * (ABNORMAL) CBC with auto differential (11/15/2024 4:35 AM RAISE MINER) WBC 7.4 3.8 - 9.9 K/cumm Comment:Testing performed by : [address] [address] Hgb 8.6(L) 11.9 - 15.5 g/dL DAYANA Comment:Testing performed by : [address] [address] Hct 26.5(L) 35.6 - 45.5 % DAYANA Comment:Testing performed by : [address] [address] Plt 238 150 - 400 K/cumm DAYANA Comment:Testing performed by : [address] [address] MPV 11.0 9.1 - 12.3 fL DAYANA Comment:Testing performed by : [address] [address] RBC 2.59(L) 3.90 - 5.20 M/cumm DAYANA CARPIO Comment:Testing performed by : [address] [address] MCV 102.3(H) 81.3 - 96.4 fL DAYANA Comment:Testing performed by : [address] [address] MCH 33.2 27.1 - 33.3 pg DAYANA CARPIO Comment:Testing performed by : [address] [address] MCHC 32.5 32.3 - 35.7 g/dL DAYANA CARPIO Comment:Testing performed by : [address] [address] RDW CV 16.4(H) 11.1 - 14.9 % DAYANA CARPIO Comment:Testing performed by : [address] [address] RDW SD 60.1(H) 35.7 - 48.1 fL DAYANA CRAPIO Comment:Testing performed by : [address] [address] NRBC abs 0.00 0.00 - 0.01 K/cumm DYAANA CARPIO Comment:Testing performed by : [address] [address] Blood 11/15/2024 4:35 AM RAISE MINER 11/15/2024 6:15 AM RAISE MINER us Ivan Vargas MD LAB BLOOD ORDERABLES Final Re sult MARY ALICENIKOS [address] [facility] Department [place] [address] * (ABNORMAL) Protime-INR (11/15/2024 4:35 AM RAISE MINER) PT 16.8(H) 12.0 - 14.6 sec Comment: Ref Range High Testing performed by: [address] [address] INR 1.4(H) 0.9 - 1.2 DAYANA CARPIO Comment: Ref Range High Interpretive data Oral anticoagulant therapeutic ranges: Venous thromboembolism prophylaxis or treatment: 2.0-3.0 CARDIOLOGY Standard range: 2.0-3.0 High-intensity range: 2.5-3.5 Refer to indication-specific guidelines for appropriate target ranges for prosthetic heart valve replacement. Current interpretive data was last revised on 2019. Testing performed by: [address] [address] Blood 11/15/2024 4:35 AM RAISE MINER 11/15/2024 6:10 AM RAISE MINER Bravo Mckenzie MD LAB BLOOD ORDERABLES Final Re sult Performing Organization Address [facility] Co de Phone Number [address] [place] [address] * Magnesium (11/15/2024 4:35 AM RAISE MINER) Magnesium 1.7 1.4 - 2.5 mg/dL Comment:Testing performed by : [address] [address] Blood 11/15/2024 4:35 AM RAISE MINER 11/15/2024 6:10 AM RAISE MINER Ivan Vargas MD LAB BLOOD ORDERABLES Final Re sult Performing Organization Address [facility] [facility] Co de Phone Number [address] [place] [address] * (ABNORMAL) Comprehensive metabolic panel (11/15/2024 4:35 AM RAISE MINER) Sodium 135 135 - 145 mmol/L Comment:Testing performed by : [address] [address] Potassium, pl 3.1(L) 3.3 - 4.9 mmol/L DAYANA Comment:Testing performed by : [address] [address] Chloride 89(L) 97 - 110 mmol/L DAYANA Comment:Testing performed by : [address] [address] CO2 27 22 - 32 mmol/L DAYANA Comment:Testing performed by : [address] [address] Anion gap 19(H) 2 - 15 mmol/L DAYANA Comment:Testing performed by : [address] [address] BUN 37(H) 6 - 25 mg/dL DAYANA Comment:Testing performed by : [address] [address] Creatinine 2.20(H) 0.60 - 1.10 mg/dL DAYANA Comment:Testing performed by : [address] [address] Glucose 103 70 - 199 mg/dL DAYANA Comment: Interpretive [...] was last revised 2022. Testing performed by: [address] [address] Calcium 8.4(L) 8.5 - 10.3 mg/dL [facility] Comment:Testing performed by : [address] [address] Bilirubin, total 1.6(H) 0.1 - 1.2 mg/dL [facility] Comment:Testing performed by : [address] [address] Protein, pl 6.1(L) 6.5 - 8.5 g/dL [facility] Comment:Testing performed by : [address] [address] Albumin 3.7 3.5 - 5.0 g/dL DAYANA Comment:Testing performed by : [address] [address] Alk phos 267(H) 40 - 130 Units/L DAYANA Comment:Testing performed by : [address] [address] ALT 14 7 - 45 Units/L DAYANA Comment:Testing performed by : [address] [address] AST 30 10 - 45 Units/L DAYANA Comment:Testing performed by : [address] [address] Blood 11/15/2024 4:35 AM RAISE MINER 11/15/2024 6:10 AM RAISE MINER Ivan Vargas MD LAB BLOOD ORDERABLES Final Re sult Performing Organization Address [facility] de Phone Number DAYANA [facility] [place] [address] * POCT glucose (11/14/2024 9:28 PM RAISE MINER) Glucose, POC 138 70 - 199 mg/dL Comment:Testing performed by : [address] [address] Glucose comment 1 Use This Result DAYANA Comment:Testing performed by : [address] [address] Glucose comment 2 RN/MD Notified DAYANA Comment:Testing performed by : [address] [address] Blood 11/14/2024 9:28 PM RAISE MINER 11/14/2024 9:28 PM RAISE MINER Ivan Vargas MD LAB POCT ORDERABLES - DEVICE Final Result Performing Organization Address [facility] Co de Phone Number MARY ALICE[address] [address] * POCT glucose (11/14/2024 5:48 PM RAISE MINER) Glucose, POC 120 70 - 199 mg/dL Comment:Testing performed by : [address] [address] Glucose comment 1 Use This Result DAYANA Comment:Testing performed by : [address] [address] Glucose comment 2 RN/MD Notified DAYANA Comment:Testing performed by : [address] [address] Blood 11/14/2024 5:48 PM RAISE MINER 11/14/2024 5:48 PM RAISE MINER Ivan Vargas MD LAB POCT ORDERABLES - DEVICE Final Result Performing Organization Address [facility] Co de Phone Number MARY ALICE[address] [place] [employer] [address] * Sodium, urine, random (11/14/2024 3:29 PM RAISE MINER) Sodium, ur 42 mmol/L Comment: Interpretive Data No reference range established. Current interpretive data was last revised 2019. Urine 11/14/2024 3:29 PM RAISE MINER 11/14/2024 6:41 PM RAISE MINER Bravo Mckenzie MD LAB URINE ORDERABLES Final Re sult Performing Organization Address [facility] Co de Phone Number MARY ALICE[address] [address] * (ABNORMAL) Urinalysis reflex to microscopic and culture Urine, clean voided (11/14/2024 3:28 PM RAISE MINER) Color, ur Yellow Yellow Comment:Testing performed by : [address] [address] Clarity, ur Clear Clear DAYANA Comment:Testing performed by : [address] [address] Specific gravity, ur 1.018 1.003 - 1.030 DAYANA Comment:Testing performed by : [address] [address] pH, urine 5.5 DAYANA Comment: Interpretive Data U rine pH is affected by diet, medications, systemic acid-base disturbances, and renal tubular function. pH may affect urinary stone formation. For example, urine pH below 6.0 may help reduce the tendency for calcium phosphate stones and pH greater than 6.0 may reduce the tendency for uric acid stone formation. Source: [facility] [employer] Current Interpretive Data was last revised on 2017 Testing performed by: [facility], [address] [place] [address], [place]., [address] Protein, ur ql Negative Negative DAYANA Comment:Testing performed by : [address], [place]., [address] Glucose, ur ql 1+(A) Negative DAYANA CARPIO Comment:Testing performed by : [address], [place]., [address] Ketones, ur Negative Negative DAYANA Comment:Testing performed by : [address], [place]., [address] Bilirubin, ur Negative Negative DAYANA Comment:Testing performed by : [address], [place]., [address] Blood, ur Negative Negative DAYANA Comment:Testing performed by : [address], [place]., [address] Urobilinogen, ur <2.0 <2.0 mg/dL DAYANA Comment:Testing performed by : [address], [place]., [address] Nitrite, ur Negative Negative DAYANA Comment:Testing performed by : [address], [place]., [address] Leukocyte esterase, ur Negative Negative DAYANA Comment:Testing performed by : [address], [place]., [address] UA reflex comment Reflex conditions for microscopic UA and culture not met. DAYANA Comment:Testing performed by : [address], [place]., [address] Urine, clean voided 11/14/2024 3:28 PM RAISE MINER 11/14/2024 3:49 PM RAISE MINER us Ivan Vargas MD LAB MICROBIOLOGY - GENERAL OR DERABLES Final Result DAYANA CARPIO [address] [facility] Department of Laboratories [place], [place] [id number] * Ammonia (11/14/2024 2:16 PM RAISE MINER) Ammonia 34 <=50 mcmol/L Comment: Please note on 02/21/2024 the unit of measure changed from mcg/dL to mcmol/L. Current Interpretive Data was last revised on 2024 Testing performed by: [address] [address] Blood 11/14/2024 2:16 PM RAISE MINER 11/14/2024 2:22 PM RAISE MINER Ivan Vargsa MD LAB BLOOD ORDERABLES Final Re sult Performing Organization Address [facility] Co de Phone Number DAYANA [facility] [place] [employer] [address] * POCT glucose (11/14/2024 11:21 AM RAISE MINER) [facility] Glucose, POC 129 70 - 199 mg/dL Comment:Testing performed by : [address] [address] Glucose comment 1 Use This Result DAYANA Comment:Testing performed by : [address] [address] Glucose comment 2 RN/MD Notified DAYANA Comment:Testing performed by : [address] [address] Blood 11/14/2024 11:2 1 AM RAISE MINER 11/14/2024 11:21 AM RAISE MINER Ivan Vargas MD LAB POCT ORDERABLES - DEVICE Final Result Performing Organization Address [facility] Co de Phone Number [place] [phone] [facility] [place] [employer] [address] * POCT glucose (11/14/2024 8:11 AM RAISE MINER) [facility] Glucose, POC 107 70 - 199 mg/dL Comment:Testing performed by : [address] [address] Glucose comment 1 Use This Result DAYANA Comment:Testing performed by : [address] [address] Blood 11/14/2024 8:11 AM RAISE MINER 11/14/2024 8:11 AM RAISE MINER Ivan Vargas MD LAB POCT ORDERABLES - DEVICE Final Result Performing Organization Address [facility] de Phone Number DAYANA [address] [place] [employer] [address] * (ABNORMAL) eGFR (11/14/2024 5:03 AM RAISE MINER) eGFR 24(L) >=60 mL/min/1. 73 m2 Comment: [...] was last reviewed 2021. Testing performed by: [facility], [address] [place] [address]., [address] Blood 11/14/2024 5:03 AM RAISE MINER 11/14/2024 5:33 AM RAISE MINER Ivan Vargas MD LAB BLOOD ORDERABLES Final Re sult Performing Organization Address City/[facility] Co de Phone Number DAYANA [facility] Department [place] [address] * (ABNORMAL) Differential, auto (11/14/2024 5:03 AM RAISE MINER) Pathologist [facility] Neutrophil abs 4.8 1.5 - 6.5 K/cumm Comment:Testing performed by : [address] [address] Imm gran abs 0.0 0.0 - 0.1 K/cumm DAYANA Comment:Testing performed by : [address], [place]., [address] Lymphocyte abs 0.7(L) 0.8 - 3.3 K/cumm DAYANA Comment:Testing performed by : [address], [place]., [address] Monocyte abs 1.0(H) 0.2 - 0.8 K/cumm DAYANA Comment:Testing performed by : [address] [address] Eosinophil abs 0.7(H) 0.0 - 0.5 K/cumm DAYANA Comment:Testing performed by : [address] [address] Basophil abs 0.1 0.0 - 0.1 K/cumm [facility] Comment:Testing performed by : [address] [address] Neutrophil pct 65.6 % [facility] Comment: Interpretive Data Percent cell count reference ranges are not reported, since discordance with absolute values may lead to misinterpretation of CBC data. Current Interpretive Data was last revised on 2018. Testing performed by: [address] [address] Imm gran pct 0.4 % [facility] Comment: Interpretive Data Percent cell count reference ranges are not reported, since discordance with absolute values may lead to misinterpretation of CBC data. Current Interpretive Data was last revised on 2018. Testing performed by: [address] [address] Lymphocyte pct 10.0 % [facility] Comment: Interpretive Data Percent cell count reference ranges are not reported, since discordance with absolute values may lead to misinterpretation of CBC data. Current Interpretive Data was last revised on 2018. Testing performed by: [address] [address] Monocyte pct 13.4 % DAYANA Comment: Interpretive Data Percent cell count reference ranges are not reported, since discordance with absolute values may lead to misinterpretation of CBC data. Current Interpretive Data was last revised on 2018. Testing performed by: [address] [address] Eosinophil pct 9.4 % DAYANA Comment: Interpretive Data Percent cell count reference ranges are not reported, since discordance with absolute values may lead to misinterpretation of CBC data. Current Interpretive Data was last revised on 2018. Testing performed by: [address] [address] Basophil pct 1.2 % DAYANA Comment: Interpretive Data Percent cell count reference ranges are not reported, since discordance with absolute values may lead to misinterpretation of CBC data. Current Interpretive Data was last revised on 2018. Testing performed by: [address] [address] Blood 11/14/2024 5:03 AM RAISE MINER 11/14/2024 5:34 AM RAISE MINER us Ivan Vargas MD LAB BLOOD ORDERABLES Final Re sult [facility] [address] [facility] Department [place] [address] * (ABNORMAL) CBC with auto differential (11/14/2024 5:03 AM RAISE MINER) WBC 7.3 3.8 - 9.9 K/cumm Comment:Testing performed by : [address] [address] Hgb 8.5(L) 11.9 - 15.5 g/dL DAYANA CARPIO Comment:Testing performed by : [address] [address] Hct 26.2(L) 35.6 - 45.5 % DAYANA CARPIO Comment:Testing performed by : [address] [address] Plt 212 150 - 400 K/cumm DAYANA CARPIO Comment:Testing performed by : [address] [address] MPV 10.7 9.1 - 12.3 fL DAYANA Comment:Testing performed by : [address] [address] RBC 2.57(L) 3.90 - 5.20 M/cumm DAYANA CARPIO Comment:Testing performed by : [address] [address] MCV 101.9(H) 81.3 - 96.4 fL DAYANA Comment:Testing performed by : [address] [address] MCH 33.1 27.1 - 33.3 pg DAYANA Comment:Testing performed by : [address] [address] MCHC 32.4 32.3 - 35.7 g/dL DAYANA Comment:Testing performed by : [address] [address] RDW CV 16.8(H) 11.1 - 14.9 % DAYANA Comment:Testing performed by : [address] [address] RDW SD 60.4(H) 35.7 - 48.1 fL DAYANA Comment:Testing performed by : [address] [address] NRBC abs 0.00 0.00 - 0.01 K/cumm DAYANA Comment:Testing performed by : [address] [address] Blood 11/14/2024 5:03 AM RAISE MINER 11/14/2024 5:34 AM RAISE MINER us Ivan Vargas MD LAB BLOOD ORDERABLES Final Re sult MARY ALICENIKOS [address] [facility] Department [place] [address] * (ABNORMAL) Comprehensive metabolic panel (11/14/2024 5:03 AM RAISE MINER) Sodium 135 135 - 145 mmol/L Comment:Testing performed by : [facility], [address] [place] [address]., [address] Potassium, pl 3.5 3.3 - 4.9 mmol/L DAYANA Comment:Testing performed by : [address], [place]., [address] Chloride 91(L) 97 - 110 mmol/L DAYANA Comment:Testing performed by : [address], [place]., [address] CO2 28 22 - 32 mmol/L CERNIKOS Comment:Testing performed by : [address], [place]., [address] Anion gap 16(H) 2 - 15 mmol/L DAYANA Comment:Testing performed by : [address], [place]., [address] BUN 33(H) 6 - 25 mg/dL [facility] Comment:Testing performed by : [address], [place]., [address] Creatinine 2.20(H) 0.60 - 1.10 mg/dL [facility] Comment:Testing performed by : [address], [place]., [address] Glucose 94 70 - 199 mg/dL [facility] Comment: Interpretive Data Fasting glucose >/= [...] was last revised 2022. Testing performed by: [address] [address] Calcium 8.3(L) 8.5 - 10.3 mg/dL [facility] Comment:Testing performed by : [address], [place]., [address] Bilirubin, total 1.4(H) 0.1 - 1.2 mg/dL DAYANA CARPIO Comment:Testing performed by : [facility], [address] [place] [address]., [address] Protein, pl 6.0(L) 6.5 - 8.5 g/dL DAYANA CARPIO Comment:Testing performed by : [address] [address] Albumin 3.6 3.5 - 5.0 g/dL DAYANA Comment:Testing performed by : [address] [address] Alk phos 256(H) 40 - 130 Units/L DAYANA Comment:Testing performed by : [address] [address] ALT 17 7 - 45 Units/L DAYANA Comment:Testing performed by : [address] [address] AST 30 10 - 45 Units/L DAYANA Comment:Testing performed by : [address] [address] Blood 11/14/2024 5:03 AM RAISE MINER 11/14/2024 5:33 AM RAISE MINER Ivan Vargas MD LAB BLOOD ORDERABLES Final Re sult Performing Organization Address City/[facility]/ZIP Co de Phone Number DAYANA [address] [facility] Department [place] [address] * POCT glucose (11/14/2024 4:41 AM RAISE MINER) [facility] Signature Glucose, POC 121 70 - 199 mg/dL Comment:Testing performed by : [address] [address] Glucose comment 1 Use This Result DAYANA Comment:Testing performed by : [address] [address] Blood 11/14/2024 4:41 AM RAISE MINER 11/14/2024 4:41 AM RAISE MINER Ivan Vargas MD LAB POCT ORDERABLES - DEVICE Final Result DAYANA [facility] [place] [address] * POCT glucose (11/13/2024 7:59 PM RAISE MINER) Glucose, POC 155 70 - 199 mg/dL Comment:Testing performed by : [address] [address] Glucose comment 1 Use This Result DAYANA Comment:Testing performed by : [address] [address] Blood 11/13/2024 7:59 PM RAISE MINER 11/13/2024 7:59 PM RAISE MINER Ivan Vargas MD LAB POCT ORDERABLES - DEVICE Final Result Performing Organization Address [facility] de Phone Number DAYANA [address] [address] * POCT glucose (11/13/2024 5:16 PM RAISE MINER) Glucose, POC 131 70 - 199 mg/dL Comment:Testing performed by : [address] [address] Glucose comment 1 Use This Result DAYANA Comment:Testing performed by : [address] [address] Glucose comment 2 RN/MD Notified DAYANA Comment:Testing performed by : [address] [address] Blood 11/13/2024 5:16 PM RAISE MINER 11/13/2024 5:16 PM RAISE MINER Ivan Vargas MD LAB POCT ORDERABLES - DEVICE Final Result Performing Organization Address [facility] Co de Phone Number DAYANA [address] [address] * CT Knee Left WO Contrast (11/13/2024 4:52 PM RAISE MINER) Anatomical Region Laterality Modality Lower Extremities Left Computed Tomog marquis 11/13/2024 5:29 PM RAISE MINER Narrative 11/13/2024 5:36 PM RAISE MINER EXAM DESCRIPTION: CT KNEE LEFT WO CONTRAST [...] Ed Ny M.D. JA: BETH Report ID: [id number] Reading Location: [id number] Procedure Note Ed Ny MD - 11/13/2024 [...] Ed Ny M.D. JA: BETH Report ID: [id number] Reading Location: [id number] Ivan Vargas MD IMG CT PROCEDURES Final Resul t * US Chest (11/13/2024 2:21 PM RAISE MINER) Anatomical Region Laterality Modality Chest N/A Ultrasound 11/13/2024 4:29 PM RAISE MINER Narrative 11/13/2024 4:32 PM RAISE MINER EXAM DESCRIPTION: US CHEST REASON FOR STUDY: Right pleural effusion, assess for loculations TECHNIQUE: A Dynamic assessment was performed of the right chest by the yard spotter, with selected grayscale images acquired and recorded [...] Will Stahl M.D. MZ: MZ Report ID: [id number] Reading Location: [id number] Procedure Note Will Stahl MD - 11/13/2024 EXAM DESCRIPTION: US CHEST REASON FOR STUDY: Right pleural effusion, assess for loculations TECHNIQUE: A Dynamic assessment was performed of the right chest by the yard spotter, with selected grayscale images acquired and recorded [...] Will Stahl M.D. MZ: MZ Report ID: [id number] Reading Location: [id number] Ivan Vargas MD IMG US PROCEDURES Final Resul t * POCT glucose (11/13/2024 2:13 PM RAISE MINER) [facility] Signature Glucose, POC 127 70 - 199 mg/dL Comment:Testing performed by : [address] [address] Glucose comment 1 Use This Result DAYANA CARPIO Comment:Testing performed by : [address] [address] Glucose comment 2 RN/MD Notified DAYANA CARPIO Comment:Testing performed by : [address] [address] Blood 11/13/2024 2:13 PM RAISE MINER 11/13/2024 2:13 PM RAISE MINER Ivan Vargas MD LAB POCT ORDERABLES - DEVICE Final Result DAYANA MH [address] [facility] Department [place] [address] * FL Fluoro Guided Aspiration Knee Left (11/13/2024 1:30 PM RAISE MINER) Anatomical Region Laterality Modality Knee Left Computed Radiogr aphy, Computed Radiography 11/13/2024 1:57 PM RAISE MINER Narrative 11/13/2024 2:11 PM RAISE MINER EXAM DESCRIPTION: FL FLUORO GUIDED ASPIRATION KNEE [...] Kedar Corrales M.D. MM: MM Report ID: [id number] Reading Location: [id number] Procedure Note Kedar Corrales MD - 11/13/2024 [...] Kedar Corrales M.D. MM: MM Report ID: [id number] Reading Location: [place] [address] Ivan Vargas MD IMG FLUOROSCOPY PROCEDURES Fi nal Result * (ABNORMAL) eGFR (11/13/2024 9:02 AM RAISE MINER) eGFR 34(L) >=60 mL/min/1. 73 m2 Comment: [...] was last reviewed 2021. Testing performed by: [address] [address] Blood 11/13/2024 9:02 AM RAISE MINER 11/13/2024 10:02 AM RAISE MINER us Ivan Vargas MD LAB BLOOD ORDERABLES Final Re sult DAYANA [address] [facility] Department [place] [address] * (ABNORMAL) Differential, auto (11/13/2024 9:02 AM RAISE MINER) Neutrophil abs 4.3 1.5 - 6.5 K/cumm Comment:Testing performed by : [address] [address] Imm gran abs 0.0 0.0 - 0.1 K/cumm DAYANA Comment:Testing performed by : [address] [address] Lymphocyte abs 0.7(L) 0.8 - 3.3 K/cumm DAYANA Comment:Testing performed by : [address] [address] Monocyte abs 0.9(H) 0.2 - 0.8 K/cumm DAYANA Comment:Testing performed by : [address] [address] Eosinophil abs 0.4 0.0 - 0.5 K/cumm DAYANA Comment:Testing performed by : [address] [address] Basophil abs 0.1 0.0 - 0.1 K/cumm DAYANA Comment:Testing performed by : [address] [address] Neutrophil pct 66.9 % DAYANA Comment: Interpretive Data Percent cell count reference ranges are not reported, since discordance with absolute values may lead to misinterpretation of CBC data. Current Interpretive Data was last revised on 2018. Testing performed by: [address] [address] Imm gran pct 0.6 % [facility] Comment: Interpretive Data Percent cell count reference ranges are not reported, since discordance with absolute values may lead to misinterpretation of CBC data. Current Interpretive Data was last revised on 2018. Testing performed by: [address] [address] Lymphocyte pct 11.6 % [facility] Comment: Interpretive Data Percent cell count reference ranges are not reported, since discordance with absolute values may lead to misinterpretation of CBC data. Current Interpretive Data was last revised on 2018. Testing performed by: [address] [address] Monocyte pct 14.3 % [facility] Comment: Interpretive Data Percent cell count reference ranges are not reported, since discordance with absolute values may lead to misinterpretation of CBC data. Current Interpretive Data was last revised on 2018. Testing performed by: [address] [address] Eosinophil pct 5.5 % [facility] Comment: Interpretive Data Percent cell count reference ranges are not reported, since discordance with absolute values may lead to misinterpretation of CBC data. Current Interpretive Data was last revised on 2018. Testing performed by: [address] [address] Basophil pct 1.1 % [facility] Comment: Interpretive Data Percent cell count reference ranges are not reported, since discordance with absolute values may lead to misinterpretation of CBC data. Current Interpretive Data was last revised on 2018. Testing performed by: [address] [address] Blood 11/13/2024 9:02 AM RAISE MINER 11/13/2024 10:03 AM RAISE MINER us Ivan Vargas MD LAB BLOOD ORDERABLES Final Re sult DAYANA [address] [facility] Department [place] [address] * (ABNORMAL) CBC with auto differential (11/13/2024 9:02 AM RAISE MINER) WBC 6.4 3.8 - 9.9 K/cumm Comment:Testing performed by : [address] [address] Hgb 8.4(L) 11.9 - 15.5 g/dL DAYANA Comment:Testing performed by : [address] [address] Hct 25.2(L) 35.6 - 45.5 % DAYANA Comment:Testing performed by : [address] [address] Plt 196 150 - 400 K/cumm DAYANA Comment:Testing performed by : [address] [address] MPV 10.5 9.1 - 12.3 fL DAYANA Comment:Testing performed by : [address] [address] RBC 2.52(L) 3.90 - 5.20 M/cumm DAYANA Comment:Testing performed by : [address] [address] MCV 100.0(H) 81.3 - 96.4 fL DAYANA Comment:Testing performed by : [address] [address] MCH 33.3 27.1 - 33.3 pg DAYANA Comment:Testing performed by : [address] [address] MCHC 33.3 32.3 - 35.7 g/dL DAYANA Comment:Testing performed by : [address] [address] RDW CV 16.8(H) 11.1 - 14.9 % DAYANA CARPIO Comment:Testing performed by : [address] [address] RDW SD 59.5(H) 35.7 - 48.1 fL DAYANA CARPIO Comment:Testing performed by : [address] [address] NRBC abs 0.00 0.00 - 0.01 K/cumm DAYANA CARPIO Comment:Testing performed by : [address] [address] Blood 11/13/2024 9:02 AM RAISE MINER 11/13/2024 10:03 AM RAISE MINER Ivan Vargas MD LAB BLOOD ORDERABLES Final Re sult Performing Organization Address [facility] Co de Phone Number [address] [place] [address] * Magnesium (11/13/2024 9:02 AM RAISE MINER) Magnesium 1.5 1.4 - 2.5 mg/dL Comment:Testing performed by : [address], [address] Blood 11/13/2024 9:02 AM RAISE MINER 11/13/2024 10:02 AM RAISE MINER Ivan Vargas MD LAB BLOOD ORDERABLES Final Re sult Performing Organization Address City/[facility] Co de Phone Number [address] [place] [address] * (ABNORMAL) Comprehensive metabolic panel (11/13/2024 9:02 AM RAISE MINER) Sodium 135 135 - 145 mmol/L Comment:Testing performed by : [address] [address] Potassium, pl 3.6 3.3 - 4.9 mmol/L DAYANA CARPIO Comment:Testing performed by : [address] [address] Chloride 92(L) 97 - 110 mmol/L [facility] Comment:Testing performed by : [address] [address] CO2 29 22 - 32 mmol/L [facility] Comment:Testing performed by : [address], [place]., [address] Anion gap 14 2 - 15 mmol/L [facility] Comment:Testing performed by : [address] [address] BUN 28(H) 6 - 25 mg/dL [facility] Comment:Testing performed by : [address], [place]., [address] Creatinine 1.60(H) 0.60 - 1.10 mg/dL [facility] Comment:Testing performed by : [address] [address] Glucose 114 70 - 199 mg/dL [facility] Comment: Interpretive Data Fasting glucose >/= [...] was last revised 2022. Testing performed by: [address] [address] Calcium 8.9 8.5 - 10.3 mg/dL [facility] Comment:Testing performed by : [address] [address] Bilirubin, total 1.5(H) 0.1 - 1.2 mg/dL [facility] Comment:Testing performed by : [address] [address] Protein, pl 5.7(L) 6.5 - 8.5 g/dL [facility] Comment:Testing performed by : [address] [address] Albumin 3.3(L) 3.5 - 5.0 g/dL DAYANA CARPIO Comment:Testing performed by : [address] [address] Alk phos 272(H) 40 - 130 Units/L DAYANA CARPIO Comment:Testing performed by : [address] [address] ALT 19 7 - 45 Units/L DAY[facility] CARPIO Comment:Testing performed by : [address] [address] AST 36 10 - 45 Units/L DAY[facility] CARPIO Comment:Testing performed by : [address] [address] Blood 11/13/2024 9:02 AM RAISE MINER 11/13/2024 10:02 AM RAISE MINER Ivan Vargas MD LAB BLOOD ORDERABLES Final Re sult Performing Organization Address [facility] Co de Phone Number [place] [phone] [facility] [place] [address] * POCT glucose (11/13/2024 8:00 AM RAISE MINER) [facility] Glucose, POC 128 70 - 199 mg/dL Comment:Testing performed by : [address] [address] Glucose comment 1 Use This Result DAYANA CARPIO Comment:Testing performed by : [address] [address] Glucose comment 2 RN/MD Notified DAY[facility] CARPIO Comment:Testing performed by : [address] [address] Blood 11/13/2024 8:00 AM RAISE MINER 11/13/2024 8:00 AM RAISE MINER Ivan Vargas MD LAB POCT ORDERABLES - DEVICE Final Result Performing Organization Address City/[facility]/ZIP Co de Phone Number [address] [place] [address] * Strep pneumoniae antigen, urine Urine (11/13/2024 12:28 AM RAISE MINER) Pathologist [facility] S. pneumoniae Ag Negative Negative Comment: [...] on 2022 Urine 11/13/2024 12:2 8 AM RAISE MINER 11/13/2024 2:18 AM RAISE MINER Tino Lynne MD LAB MICROBIOLOGY - G ENERAL ORDERABLES Final Result Performing Organization Address [facility] Co de Phone Number MARY [address] [place] [employer] [place] [address] * Legionella antigen Urine (11/13/2024 12:28 AM RAISE MINER) Pathologist [facility] Legionella Ag Negative Negative Comment: Interpretive Data This test detects only Legionella pneumophila serogroup 1 antigen. Testing performed by [facility] ([phone]). Current interpretive data was last revised on 2020. Testing performed by: [facility], [address] [facility] [place]., [address] Urine 11/13/2024 12:2 8 AM RAISE MINER 11/13/2024 3:19 AM RAISE MINER Tino Lynne MD LAB MICROBIOLOGY - G ENERAL ORDERABLES Final Result Performing Organization Address City/[facility]/ZIP Co de Phone Number [address] [employer] [place], [place] [id number] * (ABNORMAL) POCT glucose (11/12/2024 10:04 PM RAISE MINER) [facility] Glucose, POC 207(H) 70 - 199 mg/dL Comment:Testing performed by : [facility], [address] [place] [address]., [address] Glucose comment 1 Use This Result DAYANA CARPIO Comment:Testing performed by : [facility], [address] [place]., [address] Blood 11/12/2024 10:0 4 PM RAISE MINER 11/12/2024 10:04 PM RAISE MINER us Ivan Vargas MD LAB POCT ORDERABLES - DEVICE Final Result DAYANA [address] [facility] Department [place] [address] * TRANSTHORACIC ECHO (TTE) COMPLETE W DOPPLER/CF WO CONTRAST (11/12/2024 4:14 PM RAISE MINER) Anatomical Region Laterality Modality Ultrasound 11/12/2024 3:49 PM RAISE MINER Narrative 11/12/2024 6:37 PM RAISE MINER Adult Echocardiogram + ----- + :Name: LOU ISLAS Study Date: 11/12/2024 Status: [facility] : : Patient Location: [address]^[id number]^MHeight: 65 in : : Weight: 179 lbBP: 106/55 mmHg: :: 1955 Gender: Female BSA: 1.9 m2 : :Reason For Study: possible CHF : :Ordering Physician: : :IVAN VARGAS : : : :Performed By: Danette : :GOLDIE Barahona : + ----- + Procedure A two-dimensional [...] + :Name: LOU ISLAS Study Date: 11/12/2024Status: [facility]UYLER : : Patient Location: [address]^[id number]^MHeight: 65 in : : : 179 lbBP: [...] 1 or 2 Views (11/12/2024 2:18 PM RAISE MINER) Anatomical Region Laterality Modality Lower Extremities, Knee Left Computed Radiography 11/12/2024 3:15 PM RAISE MINER Narrative 11/12/2024 3:19 PM RAISE MINER EXAM DESCRIPTION: XR KNEE LEFT 1 OR [...] Juan Daily M.D. MF: SHARIFA Report ID: [id number] Reading Location: [id number] Procedure Note Juan Daily MD - 11/12/2024 [...] Juan Daily M.D. MF: SHARIFA Report ID: [id number] Reading Location: [id number] us Ivan Vargas MD IMG XR PROCEDURES Final Resul t * POCT glucose (11/12/2024 12:11 PM RAISE MINER) Glucose, POC 156 70 - 199 mg/dL Comment:Testing performed by : [address] [address] Glucose comment 1 Use This Result DAYANA Comment:Testing performed by : [address] [address] Blood 11/12/2024 12:1 1 PM RAISE MINER 11/12/2024 12:11 PM RAISE MINER Ivan Vargas MD LAB POCT ORDERABLES - DEVICE Final Result Performing Organization Address [facility] de Phone Number MARY ALICE[address] [place] [employer] [address] * POCT glucose (11/12/2024 10:02 AM RAISE MINER) [facility] Glucose, POC 125 70 - 199 mg/dL Comment:Testing performed by : [address] [address] Glucose comment 1 Use This Result DAYANA Comment:Testing performed by : [facility], [address] [place] [address]., [address] Blood 11/12/2024 10:0 2 AM RAISE MINER 11/12/2024 10:02 AM RAISE MINER Ivan Vargas MD LAB POCT ORDERABLES - DEVICE Final Result Performing Organization Address [facility] de Phone Number [address] [address] * (ABNORMAL) eGFR (11/12/2024 8:29 AM RAISE MINER) [facility] eGFR 49(L) >=60 mL/min/1. 73 m2 [...] was last reviewed 2021. Testing performed by: [address] [address] Blood 11/12/2024 8:29 AM RAISE MINER 11/12/2024 9:02 AM RAISE MINER Tino Lynne MD LAB BLOOD ORDERABLES Final Result [facility] Department [place] [address] * (ABNORMAL) Differential, auto (11/12/2024 8:29 AM RAISE MINER) Neutrophil abs 5.0 1.5 - 6.5 K/cumm Comment:Testing performed by : [address] [address] Imm gran abs 0.1 0.0 - 0.1 K/cumm DAYANA Comment:Testing performed by : [address] [address] Lymphocyte abs 0.8 0.8 - 3.3 K/cumm DAYANA Comment:Testing performed by : [address] [address] Monocyte abs 0.9(H) 0.2 - 0.8 K/cumm DAYANA Comment:Testing performed by : [address] [address] Eosinophil abs 0.3 0.0 - 0.5 K/cumm DAYANA Comment:Testing performed by : [address] [address] Basophil abs 0.1 0.0 - 0.1 K/cumm DAYANA Comment:Testing performed by : [address] [address] Neutrophil pct 70.4 % [facility] Comment: Interpretive Data Percent cell count reference ranges are not reported, since discordance with absolute values may lead to misinterpretation of CBC data. Current Interpretive Data was last revised on 2018. Testing performed by: [address] [address] Imm gran pct 1.0 % [facility] Comment: Interpretive Data Percent cell count reference ranges are not reported, since discordance with absolute values may lead to misinterpretation of CBC data. Current Interpretive Data was last revised on 2018. Testing performed by: [address] [address] Lymphocyte pct 11.1 % [facility] Comment: Interpretive Data Percent cell count reference ranges are not reported, since discordance with absolute values may lead to misinterpretation of CBC data. Current Interpretive Data was last revised on 2018. Testing performed by: [address] [address] Monocyte pct 12.5 % [facility] Comment: Interpretive Data Percent cell count reference ranges are not reported, since discordance with absolute values may lead to misinterpretation of CBC data. Current Interpretive Data was last revised on 2018. Testing performed by: [address] [address] Eosinophil pct 4.1 % [facility] Comment: Interpretive Data Percent cell count reference ranges are not reported, since discordance with absolute values may lead to misinterpretation of CBC data. Current Interpretive Data was last revised on 2018. Testing performed by: [address] [address] Basophil pct 0.9 % [facility] Comment: Interpretive Data Percent cell count reference ranges are not reported, since discordance with absolute values may lead to misinterpretation of CBC data. Current Interpretive Data was last revised on 2018. Testing performed by: [address] [address] Blood 11/12/2024 8:29 AM RAISE MINER 11/12/2024 9:03 AM RAISE MINER Tino Lynne MD LAB BLOOD ORDERABLES Final Result DAY[facility] [address] [facility] Department [place] [address] * (ABNORMAL) CBC with auto differential (11/12/2024 8:29 AM RAISE MINER) WBC 7.0 3.8 - 9.9 K/cumm Comment:Testing performed by : [address] [address] Hgb 8.7(L) 11.9 - 15.5 g/dL DAYANA Comment:Testing performed by : [address] [address] Hct 26.9(L) 35.6 - 45.5 % DAYANA Comment:Testing performed by : [address] [address] Plt 203 150 - 400 K/cumm DAYANA Comment:Testing performed by : [address] [address] MPV 10.4 9.1 - 12.3 fL DAAYNA Comment:Testing performed by : [address] [address] RBC 2.68(L) 3.90 - 5.20 M/cumm DAYANA Comment:Testing performed by : [address] [address] MCV 100.4(H) 81.3 - 96.4 fL DAYANA Comment:Testing performed by : [address] [address] MCH 32.5 27.1 - 33.3 pg DAYANA CARPIO Comment:Testing performed by : [address] [address] MCHC 32.3 32.3 - 35.7 g/dL DAYANA CARPIO Comment:Testing performed by : [address], [address] RDW CV 17.0(H) 11.1 - 14.9 % DAYANA CARPIO Comment:Testing performed by : [address] [address] RDW SD 59.2(H) 35.7 - 48.1 fL DAYANA CARPIO Comment:Testing performed by : [address] [address] NRBC abs 0.00 0.00 - 0.01 K/cumm DAYANA CARPIO Comment:Testing performed by : [address] [address] Blood 11/12/2024 8:29 AM RAISE MINER 11/12/2024 9:03 AM RAISE MINER Tino Lynne MD LAB BLOOD ORDERABLES Final Result Performing Organization Address City/State/[facility] Co de Phone Number DAYANA CARPIO [facility] Department [place] [address] * (ABNORMAL) Comprehensive metabolic panel (11/12/2024 8:29 AM RAISE MINER) Sodium 137 135 - 145 mmol/L Comment:Testing performed by : [address] [address] Potassium, pl 3.4 3.3 - 4.9 mmol/L DAYANA CARPIO Comment:Testing performed by : [address] [address] Chloride 94(L) 97 - 110 mmol/L DAYANA CARPIO Comment:Testing performed by : [address] [address] CO2 29 22 - 32 mmol/L DAYANA CARPIO Comment:Testing performed by : [address] [address] Anion gap 14 2 - 15 mmol/L DAYANA CARPIO Comment:Testing performed by : [address] [address] BUN 23 6 - 25 mg/dL DAYANA CARPIO Comment:Testing performed by : [address] [address] Creatinine 1.20(H) 0.60 - 1.10 mg/dL DAYANA CARPIO Comment:Testing performed by : [address] [address] Glucose 112 70 - 199 mg/dL DAYANA Comment: Interpretive [...] was last revised 2022. Testing performed by: [address] [address] Calcium 9.3 8.5 - 10.3 mg/dL DAYANA Comment:Testing performed by : [address] [address] Bilirubin, total 1.8(H) 0.1 - 1.2 mg/dL DAYANA Comment:Testing performed by : [address] [address] Protein, pl 5.9(L) 6.5 - 8.5 g/dL DAYANA Comment:Testing performed by : [address] [address] Albumin 3.5 3.5 - 5.0 g/dL DAYANA Comment:Testing performed by : [address] [address] Alk phos 297(H) 40 - 130 Units/L DAYANA Comment:Testing performed by : [address] [address] ALT 21 7 - 45 Units/L DAYANA Comment:Testing performed by : [address] [address] AST 46(H) 10 - 45 Units/L DAYANA Comment:Testing performed by : [address] [address] Blood 11/12/2024 8:29 AM RAISE MINER 11/12/2024 9:02 AM RAISE MINER Tino Lynne MD LAB BLOOD ORDERABLES Final Result Performing Organization Address [facility] Co de Phone Number DAYANA [address] [place] [address] * POCT glucose (11/12/2024 3:01 AM RAISE MINER) Glucose, POC 118 70 - 199 mg/dL Comment:Testing performed by : [facility], [address] [place] [address]., [address] Glucose comment 1 Use This Result DAYANA Comment:Testing performed by : [facility], [address] [place] [address]., [address] Blood 11/12/2024 3:01 AM RAISE MINER 11/12/2024 3:01 AM RAISE MINER Tino Lynne MD LAB POCT ORDERABLES - DEVICE Final Result Performing Organization Address [facility] de Phone Number DAYANA [address] [place] [address] * Blood culture Blood Peripheral (11/11/2024 9:45 PM RAISE MINER) Pathologist [facility] Report Final Report: No growth Comment:Testing performed by : [facility], [address] [facility] [place]., [address] Blood (Peripheral) 11/11/2024 9:45 PM RAISE MINER 11/12/2024 1:21 AM RAISE MINER Narrative DAYANA - 11/16/2024 7:00 AM RAISE MINER From a different site than #1. Draw [...] characteristics have been verified by the [facility] Microbiology Laboratory. For questions about this culture, contact the Microbiology Laboratory at [phone]. Interpretive data was last revised on 24. us Braov Chino MD LAB MICROBIOLOGY - GEN ERAL ORDERABLES Final Result DAYANA [address] [facility] Department [place] [address] * Blood culture Blood Peripheral (11/11/2024 9:45 PM RAISE MINER) Report Final Report: No growth Comment:Testing performed by : [facility], [address] [facility] [place]., [address] Blood (Peripheral) 11/11/2024 9:45 PM RAISE MINER 11/12/2024 1:22 AM RAISE MINER [facility] DAYANA - 11/16/2024 7:00 AM RAISE MINER Draw Blood cultures before administration of Antibiotics [...] characteristics have been verified by the [facility]biology [facility]. For questions about this culture, contact the Microbiology Laboratory at [phone]. Interpretive data was last revised on 24. us Bravo Chino MD LAB MICROBIOLOGY - GEN ERAL ORDERABLES Final Result DAYANA [address] [facility] Department [place] [address] * CT Chest Abdomen Pelvis WO Contrast (11/11/2024 8:07 PM RAISE MINER) Anatomical Region Laterality Modality Body N/A Computed Tomogra phy 11/11/2024 8:12 PM RAISE MINER Narrative 11/11/2024 8:29 PM RAISE MINER EXAM DESCRIPTION: CT CHEST ABDOMEN PELVIS WO CONTRAST REASON FOR STUDY: fluid overload, CHF, possible cirrhosis Pt c/o increasing swelling to bilateral lower extremities that is spreading to lower abd x approx 3 weeks. Pt currently in prison for rehab d/t recent hospital admission for [...] in the right lower lobe dependently. PLEURA: Quyiq-pa-ijjutihg right pleural effusion is present. MEDIASTINUM/JETT: No [...] streak artifact. OTHER: No significant abnormality. IMPRESSION: Llvxg-yf-vukrxwmf right pleural effusion with right lower lobe consolidation. Small patchy areas of density in the right upper and lower lobes may be infectious or inflammatory. Short-term follow-up is recommended. Small pericardial effusion. Hepatic cirrhosis. Cholelithiasis. Diffuse atherosclerotic disease. THIS IS AN ELECTRONICALLY VERIFIED FINAL REPORT 11/11/2024 8:29 PM - Electronically signed by Pedro De La Veag M.D. KH: MADHAV Report ID: [id number] Reading Location: [id number] Procedure Note Pedro De La Vega MD - 11/11/2024 EXAM DESCRIPTION: CT CHEST ABDOMEN PELVIS WO CONTRAST REASON FOR STUDY: fluid overload, CHF, possible cirrhosis Pt c/o increasing swelling to bilateral lower extremities that isspreading to lower abd x approx 3 weeks. Pt currently in prison for rehab d/trecent hospital admission for similar complaints/ sepsis in [...] in the right lower lobe dependently. PLEURA: Gzjyq-km-uusdqkpt right pleural effusion is present. MEDIASTINUM/JETT: No [...] streak artifact. OTHER: No significant abnormality. IMPRESSION: Qaefq-px-khwtlovv right pleural effusion with right lower lobeconsolidation. Small patchy areas of density in the right upper and lower lobes may be infectious or inflammatory. Short-term follow-up is recommended. Small pericardial effusion. Hepatic cirrhosis. Cholelithiasis. Diffuse atherosclerotic disease. THIS IS AN ELECTRONICALLY VERIFIED FINAL REPORT 11/11/2024 8:29 PM - Electronically signed by Pedro De La Vega M.D. KH: MADHAV Report ID: [id number] Reading Location: [id number] us Bravo Chino MD IMG CT PROCEDURES Manda l Result * XR Chest 1 Vw Portable (if patient condition/safety warrant portable) (11/11/2024 5:30 PM RAISE MINER) Anatomical Region Laterality Modality Body, Chest N/A Computed Radiogr aphy 11/11/2024 6:12 PM RAISE MINER Narrative 11/11/2024 6:12 PM RAISE MINER EXAM DESCRIPTION: XR CHEST 1 VIEW REASON FOR STUDY: Shortness of breath Pt c/o increasing swelling to bilateral lower extremities that is spreading to lower abd x approx 3 weeks. Pt currently in prison for rehab d/t recent hospital admission for [...] Eric Larson M.D. AG: CAM Report ID: [id number] Reading Location: [id number] Procedure Note Eric Larson MD - 11/11/2024 EXAM DESCRIPTION: XR CHEST 1 VIEW REASON FOR STUDY: Shortness of breath Pt c/o increasing swelling to bilateral lower extremities that isspreading to lower abd x approx 3 weeks. Pt currently in prison for rehab d/[facility] hospital admission for similar complaints/ sepsis in [...] Eric Larson M.D. AG: AG Report ID: [id number] Reading Location: [id number] Bravo Chino MD IMG XR PROCEDURES Manda l Result * Sepsis Lactate w/ Reflex (11/11/2024 5:10 PM RAISE MINER) [facility] Sepsis Lactate 1.6 0.7 - 2.0 mmol/L Comment:Testing performed by : [facility], [address] [place] [address]., [address] Blood 11/11/2024 5:10 PM RAISE MINER 11/11/2024 5:16 PM RAISE MINER Bravo Chino MD LAB BLOOD ORDERABLES F inal Result DAYANA [address] [facility] Department [place] [address] * (ABNORMAL) eGFR (11/11/2024 5:10 PM RAISE MINER) [facility] eGFR 43(L) >=60 mL/min/1. 73 m2 Comment: [...] was last reviewed 2021. Testing performed by: [address] [address] Blood 11/11/2024 5:10 PM RAISE MINER 11/11/2024 5:16 PM RAISE MINER us Gloria Steen NP LAB BLOOD ORDERABLES Final Resul t DAY[facility] [address] [facility] Department [place] [address] * (ABNORMAL) Differential, auto (11/11/2024 5:10 PM RAISE MINER) Neutrophil abs 4.9 1.5 - 6.5 K/cumm Comment:Testing performed by : [address] [address] Imm gran abs 0.1 0.0 - 0.1 K/cumm DAYANA Comment:Testing performed by : [address] [address] Lymphocyte abs 0.7(L) 0.8 - 3.3 K/cumm DAYANA Comment:Testing performed by : [address] [address] Monocyte abs 0.9(H) 0.2 - 0.8 K/cumm DAYNAA Comment:Testing performed by : [address] [address] Eosinophil abs 0.2 0.0 - 0.5 K/cumm DAYANA Comment:Testing performed by : [address] [address] Basophil abs 0.1 0.0 - 0.1 K/cumm DAYANA Comment:Testing performed by : [address] [address] Neutrophil pct 71.4 % DAYANA Comment: Interpretive Data Percent cell count reference ranges are not reported, since discordance with absolute values may lead to misinterpretation of CBC data. Current Interpretive Data was last revised on 2018. Testing performed by: [address] [address] Imm gran pct 1.0 % DAYANA Comment: Interpretive Data Percent cell count reference ranges are not reported, since discordance with absolute values may lead to misinterpretation of CBC data. Current Interpretive Data was last revised on 2018. Testing performed by: [address] [address] Lymphocyte pct 10.8 % [facility] Comment: Interpretive Data Percent cell count reference ranges are not reported, since discordance with absolute values may lead to misinterpretation of CBC data. Current Interpretive Data was last revised on 2018. Testing performed by: [address] [address] Monocyte pct 13.0 % [facility] Comment: Interpretive Data Percent cell count reference ranges are not reported, since discordance with absolute values may lead to misinterpretation of CBC data. Current Interpretive Data was last revised on 2018. Testing performed by: [address] [address] Eosinophil pct 3.1 % DAYANA Comment: Interpretive Data Percent cell count reference ranges are not reported, since discordance with absolute values may lead to misinterpretation of CBC data. Current Interpretive Data was last revised on 2018. Testing performed by: [address] [address] Basophil pct 0.7 % DAYANA Comment: Interpretive Data Percent cell count reference ranges are not reported, since discordance with absolute values may lead to misinterpretation of CBC data. Current Interpretive Data was last revised on 2018. Testing performed by: [facility], [address] [place] [address], [place]., [address] Blood 11/11/2024 5:10 PM RAISE MINER 11/11/2024 5:16 PM RAISE MINER us Gloria Steen NP LAB BLOOD ORDERABLES Final Resul t DAY[facility] [address] [facility] Department [place] [address] * (ABNORMAL) Pro B-type natriuretic peptide (11/11/2024 5:10 PM RAISE MINER) NT-proBNP 5,728(H) <=300 pg/mL Comment: Interpretive Comments: [...] et.al. Eur Heart J. 2006:27:330-337. 2. Servando SMITH, Miriam AM. J. AM Armando Cardiol: Cardiovasc Imag. 2009;2: 216- 225. Interpretive Data Last Revised Date: 2018. Testing performed by: [address] [address] Blood 11/11/2024 5:10 PM RAISE MINER 11/11/2024 5:16 PM RAISE MINER us Bravo Chino MD LAB BLOOD ORDERABLES F inal Result [facility] [address] [facility] Department [place] [address] * (ABNORMAL) CBC with auto differential (11/11/2024 5:10 PM RAISE MINER) WBC 6.9 3.8 - 9.9 K/cumm Comment:Testing performed by : [address] [address] Hgb 9.3(L) 11.9 - 15.5 g/dL DAYANA Comment:Testing performed by : [address] [address] Hct 28.3(L) 35.6 - 45.5 % DAYANA Comment:Testing performed by : [address] [address] Plt 209 150 - 400 K/cumm DAYANA Comment:Testing performed by : [address] [address] MPV 10.3 9.1 - 12.3 fL DAYANA Comment:Testing performed by : [address] [address] RBC 2.84(L) 3.90 - 5.20 M/cumm DAYANA Comment:Testing performed by : [address] [address] MCV 99.6(H) 81.3 - 96.4 fL DAYANA CARPIO Comment:Testing performed by : [address] [address] MCH 32.7 27.1 - 33.3 pg DAYANA CARPIO Comment:Testing performed by : [address] [address] MCHC 32.9 32.3 - 35.7 g/dL DAYANA CARPIO Comment:Testing performed by : [address] [address] RDW CV 17.0(H) 11.1 - 14.9 % DAYANA CARPIO Comment:Testing performed by : [address] [address] RDW SD 59.6(H) 35.7 - 48.1 fL DAYANA CARPIO Comment:Testing performed by : [address] [address] NRBC abs 0.00 0.00 - 0.01 K/cumm DAYANA CARPIO Comment:Testing performed by : [address] [address] Blood 11/11/2024 5:10 PM RAISE MINER 11/11/2024 5:16 PM RAISE MINER us Bravo Chino MD LAB BLOOD ORDERABLES F inal Result DAYANA [id number] Department [place] [address] * (ABNORMAL) Comprehensive metabolic panel (11/11/2024 5:10 PM RAISE MINER) Pathologist [facility] Sodium 136 135 - 145 mmol/L Comment:Testing performed by : [address] [address] Potassium, pl 3.6 3.3 - 4.9 mmol/L DAYANA CARPIO Comment: Hemolyzed; Potassium value may be falsely elevated by as much as 1.0 mmol/L. Suggest redraw and reanalysis. Testing performed by: [address] [address] Chloride 93(L) 97 - 110 mmol/L DAYANA CARPIO Comment:Testing performed by : [address] [address] CO2 32 22 - 32 mmol/L DAYANA CARPIO Comment:Testing performed by : [address] [address] Anion gap 11 2 - 15 mmol/L [facility] Comment:Testing performed by : [address] [address] BUN 23 6 - 25 mg/dL [facility] Comment:Testing performed by : [address] [address] Creatinine 1.32(H) 0.60 - 1.10 mg/dL DAYANA Comment:Testing performed by : [address] [address] Glucose 170 70 - 199 mg/dL [facility] Comment: Interpretive Data Fasting glucose >/= 126 [...] was last revised 2022. Testing performed by: [address] [address] Calcium 9.6 8.5 - 10.3 mg/dL [facility] Comment:Testing performed by : [address] [address] Bilirubin, total 1.9(H) 0.1 - 1.2 mg/dL [facility] Comment:Testing performed by : [address] [address] Protein, pl 6.3(L) 6.5 - 8.5 g/dL [facility] Comment:Testing performed by : [address] [address] Albumin 3.6 3.5 - 5.0 g/dL DAYANA Comment:Testing performed by : [address] [address] Alk phos 337(H) 40 - 130 Units/L DAYANA Comment:Testing performed by : [address] [address] ALT 30 7 - 45 Units/L DAYANA Comment:Testing performed by : [facility], [address] [place] [address]., [address] AST 73(H) 10 - 45 Units/L DAYANA Comment: Hemolyzed; result may be falsely elevated Testing performed by: [facility], [address] [place] [address]., [address] Blood 11/11/2024 5:10 PM RAISE MINER 11/11/2024 5:16 PM RAISE MINER Bravo Chino MD LAB BLOOD ORDERABLES F inal Result DAYANA [address] [facility] Department [place] [address] * Cardiology Document Scan (11/01/2024 10:08 AM RAISE MINER) Anatomical Region Laterality Modality Other Bridget Nicholson NP CV CARDIAC SERVICES PROCEDUR ES Final Result * Cardiology Document Scan (10/31/2024 9:21 AM RAISE MINER) Anatomical Region Laterality Modality Other Jc Schaffer MD CV CARDIAC SERVICES PROCEDURES F inal Result * POCT lipid panel (11/15/2023 2:47 PM RAISE MINER) Cholesterol, POC 146 mg/dL Comment:GLU = 90 HDL, POC 58 mg/dL Triglycerides, POC 87 mg/dL LDL Cholesterol POC 70 mg/dL Chol/HDL Ratio, POC 1.2 Non-HDL Cholesterol, POC 88 mg/dL Cholesterol Total, POC 146 mg/dL Capillary blood 11/15/2023 2 :47 PM RAISE MINER Bridget Nicholson NP POINT OF CARE TEST ORDERABLE S Final Result from Last 3 Months or Most Recently Relevant to Health Maintenance Insurance MEDICARE [employer] SENIOR SUPPLEMENT Advance Directives For more information, please contact: [phone] Documents on File Type Date Recorded Patient Hospice Care Transitions Coordinator Expl anation ADVANCE DIRECTIVE 11/13/2024 3:42 PM Power of Mill Operator Helper-Medical * Full Code (Latest Code Status on File) Date Activated Date Inactivated Comments 11/12/2024 2:31 AM 11/20/2024 10:35 PM Care Teams 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
--- OUTSIDE RECORDS SUMMARY | 2025-01-09 12:23 | XMS_ITS | Clinical Summary ---
Author Organization [facility] Address [address] [facility] [place] [address] Care Team Providers Care Aluminum Can Collector Name Role Phone Dariel Horvath DO Primary Care Provider [phone] Source Comments [facility],non-owned Affiliates and Associated Physician Practices is amultiple site organization consisting of ambulatory clinics and hospital sitesin [place], [place], [place] and [place]. This disclosure is being madepursuant to the Care Everywhere program and may not contain all information available regarding this patient. Last updated 18.[facility] Allergies Active Allergy Reactions Criticality Noted Date Comments Codeine Headache 05/30/2021 Medications * Be aware that medications may not be up to date on this document. Alwaysverify current medications with the patient. Medication Sig Dispensed Refills Start Date End Date Status aspirin (ASPIRIN) 81 MG chew tablet Take 81 mg by mouth once daily Active atorvastatin (LIPITOR) 10 MG tablet Take 10 mg by mouth at bedtime Active NEEDLE, DISP, 24 G 24G X 1 MISC Use 1 Each 2 times daily 48 Each 06/04/2021 Active insulin glargine (LANTUS) vial Inject 11 (eleven) Units subcutaneously at bedtime 06/04/2021 Active ondansetron, disintegrating, (ZOFRAN ODT) 4 MG tablet Take 1 (one) tablet by mouth 3 times daily before meals Allow tablet to dissolve on the tongue 30 tablet 06/04/2021 Active metoprolol succinate XL 24hr (TOPROL XL) 25 MG tablet Take 0.5 (one-half) tablet by mouth once daily 06/04/2021 Active folic acid (FOLVITE) 1 MG tablet Take 1 (one) tablet by mouth once daily 30 tablet 06/04/2021 Active sodium chloride 1 GM tablet Take 1 (one) tablet by mouth 3 times daily with meals 90 tablet 3 06/04/2021 Active docusate sodium (COLACE) 100 MG capsuleIndications: Closed fracture of distal end of left femur, unspecified fracture morphology, initial encounter ([facility]) Take 1 (one) capsule by mouth 2 times daily 06/04/2021 Active ferrous sulfate EC (FERROUS SULFATE) 324 (65 Fe) MG tablet Take 1 (one) tablet by mouth once daily 30 tablet 3 06/04/2021 Active insulin lispro (HUMALOG) 100 UNIT/ML vial Inject 2 (two) Units subcutaneously 3 times daily before meals 3 mL 1 06/04/2021 Active sodium zirconium cyclosilicate (LOKELMA) 5 g packet Take 1 (one) packet by mouth once daily 30 Each 06/04/2021 Active pen needles 5/16 31G X 8 MM 31G X 8 MM USE WITH INSULIN FOUR TIMES DAILY 100 Each 06/04/2021 Active insulin pen needle (NOVOFINE 31) 31G X 5 MM needle 1 (one) Each 3 times daily 100 Each 06/04/2021 Active ibuprofen (MOTRIN) 200 MG tablet Take by mouth every 6 hours as needed for Pain Active Active Problems Problem Noted Date Diagnosed Date Hyponatremia 05/31/2021 Type 2 diabetes mellitus wit hout complication, with long-term current use of insulin 05/31/2021 Closed fracture of left distal femur Social History Tobacco Use Types Packs/Day Years Used Date Smoking Tobacco: Former Smokeless Tobacco: Never Comments:16 years ago, appro x 2004 Alcohol Use Standard Drinks/Week Comments Yes 2 (1 standard drink = 0.6 oz pure alcohol) two drinks of vodka with diet coke daily Sex and Gender Information Value Date Recorded Sex Assigned at Not on file Gender Identity Not on file Sexual Orientation Not on file Last Filed Vital Signs Vital Sign Reading Time Taken Comments Blood Pressure 138/74 06/04/2021 4:48 PM CDT Pulse 102 06/04/2021 4:48 PM CDT Temperature 36.7 C (98 F) 06/04/2021 4:48 PM CDT Respiratory Rate 18 06/04/2021 4:48 PM CDT Oxygen Saturation 100% 06/04/2021 4:48 PM CDT Inhaled Oxygen Concentration 21% 05/31/2021 2 :20 PM CDT Weight 85.3 kg (188 lb) 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 Height 165.1 cm (5' 5 ) 06/24/2021 12:57 PM CDT Body Mass Index 31.28 06/24/2021 12:57 PM CDT Plan of Treatment Health Maintenance Due Date Last Done Comments BONE DENSITY TESTING 1955 COLOGUARD (AGES 45-75) - COLON CA SCREENING 1955 COLON MONITORING 1955 COLONOSCOPY - COLON CA SCREENING 1955 CT COLONOGRAPHY - COLON CA SCREENING 1955 Colorectal Cancer Screening 1955 FIT - COLON CA SCREENING 1955 FLEX SIG - COLON CA SCREENING 1955 MAMMOGRAM 1955 MEDICARE AWV 12 MONTHS 1955 HEPATITIS C SCREENING 04/11/1972 DTAP/TDAP/TD VACCINES (1 - Tdap) 1973 PNEUMOCOCCAL VACCINE 50+ (1 of 1 - PCV) 2004 ZOSTER VACCINE (1 of 2) 2004 Respiratory Syncytial Virus (RSV) Vaccine Pt: or over 60 yrs (1 - Risk 60-74 years 1-dose series) 2014 DIABETES RETINOPATHY SCREENING 05/31/2021 DIABETES-FOOT EXAM WITH MONOFILAMENT 05/31/2021 DIABETES-HGB A1C 12/01/2021 05/31/2021 DIABETES-SERUM CREATININE 06/04/20222020, 06/03/2021, 06/02/2021, Additional history exists COVID-19 VACCINE (1 - 2023- season) 2024 INFLUENZA VACCINE (#1) 2024 07/29/2020 DEPRESSION SCREENING 10/16/2024 DIABETES - URINE PROTEIN SCREENING 10/16/2024 HEPATITIS B VACCINE Aged Out No longe r eligible based on patient's age to complete this topic HIB VACCINE Aged Out No longer eligi ble based on patient's age to complete this topic HPV VACCINE Aged Out No longer eligi ble based on patient's age to complete this topic MENINGOCOCCAL (Group B) VACCINE SHARED DECISION-MAKING Aged Out No longer eligible based on patient's age to complete this topic MENINGOCOCCAL GROUPS A/C/Y/W VACCINE Aged Out No longer eligible based on patient's age to complete this topic Medical Devices Implanted Type Area Big Data Solutions Architect Device Identifier Shelf Expiration Date Model / Serial / Lot 8.0mm Cannulated Locking Screw Implanted:Qty: 1 on 05/31/2021 by Mary Ann Elkins MD at [facility] Left: Leg [id number] / / Plate 6 Hl Lck Precontr Fem Lt Dist Implanted:Qty: 1 on 05/31/2021 by Mary Ann Elkins MD at [facility] Left: Leg [employer] 06/24/2028 [id number] / / 5.5mm Dt Poly Locking Screws Implanted:Qty: 2 on 05/31/2021 by Mary Ann Elkins MD at [facility] Left: Leg [employer] [id number] / / 5.5mm Ft Poly Locking Screws Implanted:Qty: 2 on 05/31/2021 by Mary Ann Elkins MD at [facility] Left: Leg [id number] / / 4.5mm Solid Cortical Bone Screw Implanted:Qty: 1 on 05/31/2021 by Mary Ann Elkins MD at [facility] Left: Leg [id number] / / 4.5 Solid Cortical Bone Screw Implanted:Qty: 1 on 05/31/2021 by Mary Ann Elkins MD at [facility] Left: Leg [id number] / / 4.5 Solid Cortical Bone Screw Implanted:Qty: 1 on 05/31/2021 by Mary Ann Elkins MD at [facility] Left: Leg [id number] / / 4.5 Solid Cortical Bone Screw Implanted:Qty: 1 on 05/31/2021 by Mary Ann Elkins MD at [facility] Left: Leg [id number] / / Explanted Type Area Big Data Solutions Architect Device Identifier Shelf Expiration Date Model / Serial / Lot Wire K 1.6mm 150mm 1 End Troc Pnt Ss Sm Explanted:Qty: 1 on 05/31/2021 by Mary Ann Elkins MD at [facility] Left: Leg [employer] [id number] / / 5.5mm Non-Locking Screws Explanted:Qty: 1 on 05/31/2021 by Mary Ann Elkins MD at [facility] Left: Leg [id number] / / 4.5 Solid Cortical Bone Screw Explanted:Qty: 1 on 05/31/2021 by Mary Ann Elkins MD at [facility] Left: Leg [id number] / / Procedures Procedure Name Priority Date/Time Associated Diagnosis Comments COMPREHENSIVE METABOLIC PANEL AM Draw 06/04/2021 1:24 AM CDT HEMOGLOBIN A1C DIOMEDES 05/31/2021 3:39 AM CDT from Last 3 Months or Most Recently Relevant to Health Maintenance Results * (ABNORMAL) COMPREHENSIVE METABOLIC PANEL (06/04/2021 1:24 AM CDT) BUN 14 7 - 26 mg/dL 06/04/2021 2:51 AM [facility] Creatinine 1.13(H) 0.56 - 0.96 mg/dL 06/04/2021 2:51 AM [facility] Sodium 130(L) 136 - 145 mmol/L 06/04/2021 2:51 AM [facility] Potassium 4.1 3.5 - 4.5 mmol/L 06/04/2021 2:51 AM [facility] Chloride 98 98 - 107 mmol/L 06/04/2021 2:51 AM [facility] CO2 24 22 - 29 mmol/L 06/04/2021 2:51 AM [facility] Glucose 138(H) 70 - 115 mg/dL 06/04/2021 2:51 AM [facility] Calcium 8.5 8.4 - 10.2 mg/dL 06/04/2021 2:51 AM [facility] Protein Total 5.4(L) 6.0 - 8.3 g/dL 06/04/2021 2:51 AM [facility] Albumin 2.8(L) 3.4 - 5.0 g/dL 06/04/2021 2:51 AM [facility] Bilirubin Total 1.0 0.2 - 1.2 mg/dL 06/04/2021 2:51 AM [facility] Alkaline Phosphatase 284(H) 40 - 150 U/L 06/04/2021 2:51 AM [facility] ALT 13 5 - 55 U/L 06/04/2021 2:51 AM [facility] AST 33 5 - 34 U/L 06/04/2021 2:51 AM [facility] Anion Gap 12 8 - 18 06/04/2021 2:51 AM [facility] BUN/Creatinine Ratio 12 7 - 23 06/04/2021 2:51 AM [facility] Osmolality Calculated 273 270 - 300 mOsm/kg 06/04/2021 2:51 AM [facility] Albumin/Globulin Ratio 1.1 1.1 - 2.3 06/04/2021 2:51 AM [facility] eGFR by CKD-EPI 50(L) >=90 mL/min/1.7 3 m2 06/04/2021 2:51 AM [facility] Blood BLOOD SPECIMEN / Unknown Lab Venipuncture / Unknown 06/04/2021 1:24 AM CDT 06/04/2021 2:15 AM T Janene Sampson PA-C LAB - CHEMISTRY HELADIO Navarro Organization Address City/State/ZIP Co de Phone Number [facility] [address] [place] [address], [facility] [phone] * HEMOGLOBIN A1C (05/31/2021 3:39 AM T) Hemoglobin A1c 5.4 4.4 - 6.3 % 05/31/2021 10:18 AM [facility] Estimated Average Glucose 108 mg/dL 05/31/2021 10:18 AM CDT [facility] Comment: HbA1c Interpretation: Treatment target values recommended by ADA and other clinical organizations should be used to evaluate metabolic control in patients. Treatment Target Values: Normal : < 5.7% Pre-diabetes: 5.7-6.4% Diabetes: Equal to or greater than 6.5% Reference: [place] [employer] Standards of Care in Diabetes -2014 In patients 70 years and older consider HbA1c target range of 7.0-7.5% Reference: Diabetes Mellitus in Older People: Position Statement on behalf of the International Association of Gerontology and Geriatrics (IAGG), the Diabetes Working Alliance Party for Older People (EDWPOP), and the International Task Force of Experts in Diabetes. Phu Pisano, et al. J [place] [employer] Association. 2012 Test results diagnostic of diabetes should be repeated for confirmation. The Sebia Capillary 2 assay for the measurement of HbA1c is a National Glycohemoglobin Standardization Program (NGSP)certified method. Blood BLOOD SPECIMEN / Unknown Venipuncture / Unknown 05/31/2021 3:39 AM CDT 05/31/2021 3:46 AM CDT Raheel Erazo MD LAB - CHEMISTRY HELADIO NICHOLE [facility] Organization Address City/State/ZIP Co de Phone Number [facility] [address] [place] [address], [facility] [phone] from Last 3 Months or Most Recently Relevant to Health Maintenance Advance Directives * Full Code (Latest Code Status on File) Date Activated Date Inactivated Comments 05/31/2021 12:14 AM 06/04/2021 6:44 PM Care Teams Aluminum Can Collector Relationship Specialty Start Date End Date Dariel Horvath DO [address] [facility] [address] [place], [place] [address] PCP - General Internal Medicine 05/30/21
== END 2025-01-09 11:03 | disposition home or self-care (01) ==
PROVIDERS: PCP Nurse Practitioner; Visit Provider Internal Medicine Nephrology
DX: A41.9 Sepsis, unspecified organism (principal); N18.31 Chronic kidney disease, stage 3a; E11.51 Type 2 diabetes mellitus with diabetic peripheral angiopathy without gangrene; I50.32 Chronic diastolic (congestive) heart failure; R60.1 Generalized edema; E87.6 Hypokalemia; E87.1 Hypo-osmolality and hyponatremia
CPT/HCPCS: 80069; 83735

== ENCOUNTER 2025-01-14 13:40 | Outpatient (NON) | payer MEDICARE, SELFPAY ==
--- OUTSIDE RECORDS SUMMARY | 2025-01-14 14:58 | XMS_ITS ---
Author Organization [facility] Address [address] [place] [address] Care Team Providers Care Field Services Analyst Name Role Phone Ramesh Smith Primary Care Provider Dr. 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 confirmed Problem Polyneuropathy due to type 2 diabetes mellitus (670831334) Type 2 diabetes mellitus with diabetic polyneuropathy (E11.42) Active confirmed Problem Neurogenic claudication (320123046) Spinal stenosis, lumbar region with neurogenic claudication (M48.062) Active confirmed Problem Abnormal gait (49201859) Other abnormalities of gait and mobility (R26.89) Active confirmed Problem Malaise (902537507) Other malaise (R53.81) Active confirmed Problem Orthostatic hypotension (88206309) Orthostatic hypotension (I95.1) Active confirmed Problem Hypo-osmolality and or hyponatremia (588645784) Hypo-osmolality and hyponatremia (E87.1) Active confirmed Vital Signs Blood pressure systolic 130 mm Hg 08/30/20 23 Blood pressure diastolic 85 mm Hg 023 Respiratory Rate 16 /min 08/30/2023 Oximetry 100 % 08/30/2023 Height 65 in 08/30/2023 Weight 192 lbs 08/30/2023 BMI 31.95 kg/m2 08/30/2023 Encounters Encounter Location Date Provider Diagnosis [facility] [address] [place] [address] 08/30/2023 Juan Alvarado Alcohol dependence, uncomplicated F10.20 [...] advised her to discuss this with her Senior Executive Assistant as too much increased free water intake [...] advised her to discuss this with her Senior Executive Assistant as too much increased free water intake could worsen her hyponatremia Hypo-osmolality and hyponatremia Follow- up with Nephrology Next Appt Details Follow Up: prn, Reason: Eval uation and Management Progress Notes * Lizzeth JOYhDOB:1955 (68 yo F)Acc No.[id number]:08/30/2023 MEDICAL REVIEW COORDINATOR Neuro Patient: Lou Mandujano Provider: Sadia Alvarado MD :1955 A ge:68 Y S ex:Female Date:08/30/2023 Address: [address], [facility] Pcp:Ramesh Smith Subjective: * Chief Complaints: * D izziness and gait disturbance * HPI: * Introduction: I had the pleasure of seeing Cornelio Joy, who presented for evaluation of the above complaints. She was referred by Dr. Harley at [facility]. She is a 68 year [...] Dr. Harley ordered a L-spine MRI. The L -spine [...] her parents. * Social History: Former smoker. residential history of alcohol dependence for last 25 [...] advised her to discuss this with her Senior Executive Assistant as too much increased free water intake could worsen her hyponatremia 9. H ypo-osmolality and hyponatremia Notes: Follow-up with Nephrology * Procedure Codes: G 8427 DOC MEDS VERIFIED W/PT OR [id number] FLU IMMUNIZE ORDER/[id number] ACP DISCUSS/DSCN MKR DOCD, Modifiers: 8P G9991 Pneum vax admin 60+G8417 BMI >=30 CALCUATE W/[id number] TOBACCO NON-[id number] BP SCR PRFRM RCMDD DEFIND SCR INTVL * Preventive Medicine: T his was a 60 minute visit with time spent in reviewing prior records, evaluation and management, and counseling. * Follow Up: p rn (Reason: Evaluation and Management) * Billing Information: * Visit Code: 22254 Office Visit, New Pt., Level 5. Modifiers: 25 * Procedure Codes: G8427 DOC MEDS VERIFIED W/PT OR RE. G8482 FLU IMMUNIZE ORDER/ADMIN. 1123F ACP DISCUSS/DSCN MKR DOCD. Modifiers: 8P G9991 Pneum vax admin 60+. G8417 BMI >=30 CALCUATE W/FOLLOWUP. 1036F TOBACCO NON-USER. G8783 BP SCR PRFRM RCMDD DEFIND SCR INTVL. * RDS CONSULTANT Sign off status: Completed true * Provider: Sadia Alvarado MD Date: 10/30/2022 Generated for Mare kathleen/Faxing/eTransmitting on: 0 01/14/2025 02:58 PM CDT History and Physical Notes * HPI (History of Present Illness) Category Sub-Category Detail Notes Category Not es *Introduction I had the pleasure o f seeing Lou Joy, who presented for evaluation of the above complaints. She was referred by Dr. Harley at [facility]. She is a 68 year [...]
--- OUTSIDE RECORDS SUMMARY | 2025-01-14 14:58 | XMS_ITS ---
Author Organization [facility] Address [address] [place] [address] Care Team Providers Care Research Fellow Name Role Phone Ramesh Smith Primary Care Provider UnavailDr. Juan Doherty Unavailable [phone] Wilfrido Harley Unavailable Unavailable [facility], Provider Unavailable Unavailab le Allergies Allergen (clinical drug ingredient) Drug/Non Drug Allergy documented on EMR Reaction Allergy Type Onset Date Status codeine Codeine Unknown Drug Allergy Active REASON FOR VISIT [facility] Encounter Medications Medication SIG [...] Active Encounters Encounter Location Date Provider Diagnosis [facility] [address] [place] [address] 03/30/2024 Provider [facility] Plan Of Treatment No Information Progress Notes * Lizzeth JOYhDOB:1955 (69 yo F)Acc No.[id number]:03/30/2024 Patient: Lou HARRIS Provider: Edel Taylor :1955 A ge:68 Y S ex:Female Date:03/30/2024 [facility] [address] [place] Pcp:Ramesh Smith Subjective: * Chief Complaints: * 1 . [facility] En[facility]. * Medical History: * Medications: [...] Electronic signature of Prov ider [facility] on 01/14/2025 at 02:57 PM CDT Sign off status: Pending * Provider: Edel Taylor Date: 0 03/30/2024 Generated for Mare kathleen/Tao/Rach on: 0 01/14/2025 02:57 PM CDT
--- OUTSIDE RECORDS SUMMARY | 2025-01-14 14:58 | XMS_ITS | Encounter Summary ---
Author Organization [facility] Healthcare Address [address] [place] [address] Care Team Providers Care Hydrographer Name Role Phone Augustus Birch MD Unavailable Ghanshyam Ruiz NP Primary Care Provider [phone] Encounter Details Date Type Department Care Team (Late st Contact Info) Description 01/14/[address] [facility] Medical Group Cardiology [address] [place] [address] Carlitos Edmonds MD [address] [id number] Social History Tobacco Use Types Packs/Day Years Used Date Smoking Tobacco: Former Cigarettes 1 30 Q uit: 2006 Smokeless Tobacco: Never [facility] Utilities Answer Date Recorded In the past 12 months has [employer], gas, oil, or water [employer] threatened to shut off services in your [...] 11/12/2024 How often do you attend chur or samaritan services? More than 4 times per year 11/12/2024 Do you belong to any clubs o r organizations such as yarsanism groups, unions, fraternal or athletic groups, or [...] any time in the past 12 m [facility], were you homeless or living in a fci (including now)? No 11/12/2024 Personal Safety Answer [...] on file Sexual Orientation Not on file documented as of this encounter Miscellaneous Notes * Telephone Encounter - Alexandra Padron RN - 01/14/2025 1:11 PM CDT Spoke with pt, reviewed message from CT and pt verbalized understanding. * Telephone Encounter - Alexandra Padron RN - 01/14/2025 1:02 PM CDT LM on reviewing message from CT and advised pt to callback with any questions or concerns. * Telephone Encounter - Libertad Marley NP - 01/14/2025 12:51 PM CDT I reviewed her chart. She could take furosemide 40 mg bid x 4 days to help relieve this, then go back to furosemide 40 mg once daily. Continue other conservative measures with elevation, wrapping, low sodium diet. Thank you. * Telephone Encounter - Alexandra Padron RN - 01/14/2025 12:18 PM CDT Spoke with pt, she was discharged home from [place] last week. For the past 2-3 days pt has noticed that her legs and lower abdomen have started to swell. Pt is mostly wheelchair bound and has a hard time standing up so she doesn't weigh herself at home. Pt said [facility] recently saw her and they advised her to contact her doctor about her swelling too. Reviewed medications and pt has been taking furosemide 40mg daily and spironolactone 25mg daily (this appears the same as when we saw pt in office on 12/25). Pt said she does have some SOB with exertion when she is trying to move out of her wheelchair but she said her legs are weak and it may be because of that. Pt has no SOB while just sitting. Pt does wear compression stockings/velcro wraps for her lymphedema as prescribed. Pts BP today was good 108/50-it has been running around this since being home. Pt is not sure if the swelling is related to her heart or her lymphedema. Pt is going to also contact her PCP to make him aware as well. Will forward to CT in DK and CK's absence. Please advise, thank you! * Telephone Encounter - Ofe Juarez - 01/14/2025 11:26 AM CDT Pt states she was at [facility] [place] and they changed her meds. States she is back home now but her lower abdomen and legs are swollen. Requesting call back to discuss. Contact: documented in this encounter Plan of Treatment Not on file documented as of this encounter Visit Diagnoses Not on filedocumented in this encounter Care Teams Hydrographer Relationship Specialty Start Date End Date Ghanshyam Ruiz NP [address] [place] [address] PCP - General Nurse Practitioner 09/03/24 Augustus Birch MD [address] [place] [address] Internal Medicine 04/17/19 documented as of this encounter
--- OUTSIDE RECORDS SUMMARY | 2025-01-14 14:58 | XMS_ITS | Patient Health Record ---
Author Organization [facility] Address [address] [place] [address] Care Team Providers Care Inbound Sales Consultant Name Role Phone Ramesh Smith Primary Care Provider UnavailDr. 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 confirmed Problem Chronic migraine without aura, non-intractable (266420294420094) Chronic migraine without aura, not intractable, without status migrainosus (G43.709) Active confirmed Problem Alcoholic polyneuropathy (0301945) 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 confirmed Problem Orthostatic hypotension (69651868) Orthostatic hypotension (I95.1) Active confirmed Problem Abnormal gait (87103544) Other abnormalities of gait and mobility (R26.89) Active confirmed Problem Malaise (577104111) Other malaise (R53.81) Active confirmed Problem Neurogenic claudication (837651842) Spinal stenosis, lumbar region with neurogenic claudication (M48.062) Active confirmed Encounters Encounter Location Date Provider Diagnosis [facility] [address] [place] [address] 03/30/2024 Provider [facility] Plan Of Treatment No Information Insurance Providers Payer Name Payer Address Payer Phone Subscriber Number Group Number Insured Name Patient Relationship to Insured Coverage Start Date Coverage End Date [employer] (Medicare) Attention Claims [address] [place] [address] [id number] Lou Islas Self - patient is the insured [employer] [address] [place] [id number] Lou Islas Self - patient is the insured Medical (General) History Medical History History ICD Code Obesity DM2 HLD HTN Osteoarthritis Osteoporosis Lumbar DDD GERD Chronic hyponatremia Mild CKD Liver cirrhosis Surgical History Surgery Date(Month/Year) R hip replacement L hip replacement Lumbar discectomy B cataract
--- OUTSIDE RECORDS SUMMARY | 2025-01-14 14:58 | XMS_ITS | Clinical Summary ---
Author Organization [facility] Address [address] [place] [phone] Phone Care Team Providers Care Cookie Breaker Name Role Phone Dariel Horvath DO Primary Care Provider [phone] Allergies Active Allergy Reactions Criticality Noted Date [...] 09/24/2019 Influenza Vaccine (#1) 2024 Care Teams Cookie Breaker Relationship Specialty Start Date End Date Dariel Horvath DO [address] [facility] [address] [place] [address] PCP - General Internal Medicine 05/27/21
--- OUTSIDE RECORDS SUMMARY | 2025-01-14 14:59 | XMS_ITS | Clinical Summary ---
Author Organization [facility] at the [facility] Office Center Address [address] [place] [address] Care Team Providers Care Slicing Machine Operator Name Role Phone Augustus Birch MD Unavailable Ghanshyam Ruiz NP Primary Care Provider [phone] Allergies Active Allergy Reactions Criticality Noted Date [...] mouth daily Active blood-glucose meter,continuous ([employer] Architect) misc Activ e thiamine (VITAMIN B1) 100 [...] 1 tablet (1 g total) by mouth special investigator before breakfast 06/04/20 21 Active sodium zirconium [...] 11/29/2024 Assessment & Plan (11/29/2024 11:50 AM ASSISTANT READING TEACHER): Bilateral lower extremity chronic venous insufficiency with [...] Encounters Date Type Department Care Team Description 01/14/2025 Telephone [facility] Cardiology [address] [facility] [address] [place] [address] Carlitos Edmonds MD 12/26/2024 9:30 AM CDT Office Visit [facility] Orthopedics and Sports Medicine [address] [place] [address] [address] [place] [address] Samara Soto PA Closed fracture of medial portion of left tibial plateau with routine healing, subsequent encounter (Primary Dx) 12/26/2024 9:15 AM CDT - 12/26/2024 11:59 PM CDT Hospital Encounter [facility] 1 DIAG IMG [address] [place] [address] Closed fracture of medial portion of left tibial plateau, initial encounter Discharge Disposition: Discharge to home or self care 12/25/2024 9:30 AM CDT Office Visit [facility] [address] [place] [address] [address] [place] [phone] Bridget Nicholson NP Congestive heart failure, unspecified HF chronicity, unspecified heart failure type (HCC) (Primary Dx); Lymphedema of both lower extremities; Closed fracture of medial portion of left tibial plateau, initial encounter; Chronic venous insufficiency of lower extremity 11/27/2024 11:00 AM ASSISTANT READING TEACHER Office Visit [facility] Vascular at [address] [place] [phone] Lexie Rucker MD Chronic venous insufficiency of lower extremity (Primary Dx) 11/26/2024 2:00 PM ASSISTANT READING TEACHER Ancillary Procedure [facility] Vascular and Vein Surgery at [address] [place] [phone] Varicose veins of lower extremity with pain, bilateral; Other specified symptoms and signs involving the circulatory and respiratory systems 11/26/2024 1:00 PM ASSISTANT READING TEACHER Ancillary Procedure [facility] Vascular and Vein Surgery at [address] [place] [phone] Varicose veins of lower extremity with pain, bilateral 11/25/2024 Orders Only [facility] [address] [place] [address] [address] [place] [phone] Bridget Nicholson NP 11/21/2024 Telephone [facility] Nephrology at [address] [place] [address] Bravo Mckenzie MD 11/11/2024 5:12 PM ASSISTANT READING TEACHER - 11/20/2024 6:14 PM ASSISTANT READING TEACHER Hospital Encounter [facility] 5 Med Surg [address] [place] [address] Bravo Chino MD Ogbuagu, Henry Maduabuchi, MD Chapagain, Akhil, MD Herron, Anjanya Socrates, MD Congestive heart failure, unspecified HF chronicity, unspecified heart failure type (HCC) (Primary Dx); Pneumonia due to infectious organism, unspecified laterality, unspecified part of lung; CATHRYN (acute kidney injury) (HCC) [N17.9]; Cirrhosis of liver without ascites, unspecified hepatic cirrhosis type (HCC) [K74.60]; Closed fracture of medial portion of left tibial plateau, initial encounter [S82.132A] Discharge Disposition: Discharge to [facility] 11/07/2024 Orders Only [facility] Cardiology [address] [place] [address] Jc Schaffer MD 10/30/2024 Telephone [facility] [address] [place] [address] Carlitos Edmonds MD from Last [...] Tobacco: Never Tobacco Cessation:Counseling Given: Not Answered [facility] Utilities Answer Date Recorded In the past 12 months has e [employer], oil, or water [employer] threatened to shut off services in your [...] often do you attend chur ch or yarsani services? More than 4 times per year 11/12/2024 Do you belong to any clubs o r organizations such as buddhism groups, unions, fraternal or athletic groups, or [...] any time in the past 12 m [facility], were you homeless or living in a skilled nursing (including now)? No 11/12/2024 Personal Safety Answer [...] 36.4 C (97.5 F) 11/20/2024 4:02 AM ASSISTANT READING TEACHER Respiratory Rate 18 11/20/2024 8:44 AM ASSISTANT READING TEACHER Oxygen Saturation 99% 12/25/2024 9:24 AM CDT [...] 2 - PPSV23) 11/19/2019 09/24/2019 Covid-19 Vaccine (2023-2 5 season) 2024 07/17/2023, 07/22/2022, 05/05/2022, Additional history exists Lipid Panel 11/15/2024 11/15/2023 Hemoglobin A1C 05/16/2025 11/16/2024, 05/31/2021 Fall Risk Assessment 11/19/2025 11/19/2024 eGFR 11/20/2025 11/20/2024, 01/2025, 11/18/2024, Additional history exists Influenza Vaccine Completed 07/16/2024, , 07/22/2022, Additional history exists Procedures Procedure Name Priority Date/Time Associated Diagnosis Comments XR TIBIA FIBULA LEFT 2 VIEWS Schedule Routine, Read Routine (OP Routine) 12/26/2024 9:26 AM CDT Closed fracture of medial portion of left tibial plateau, initial encounter US SONIA Schedule Routine, Read Routine (OP Routine) 11/26/2024 2:32 PM ASSISTANT READING TEACHER Varicose veins of lower extremity with pain, bilateral Other specified symptoms and signs involving the circulatory and respiratory systems US VENOUS REFLUX BILATERAL Routine 11/26/2024 2:32 PM ASSISTANT READING TEACHER Varicose veins of lower extremity with pain, bilateral POCT GLUCOSE DEVICE Routine 11/20/2024 5 :57 PM ASSISTANT READING TEACHER POCT GLUCOSE DEVICE Routine 11/20/2024 1 2:28 PM ASSISTANT READING TEACHER POCT GLUCOSE DEVICE Routine 11/20/2024 8 :57 AM ASSISTANT READING TEACHER EGFR Routine 11/20/2024 5:33 AM ASSISTANT READING TEACHER DIFFERENTIAL AUTO Routine 11/20/2024 5:3 3 AM ASSISTANT READING TEACHER COMPREHENSIVE METABOLIC PANEL Routine 11/20/2024 5:33 AM ASSISTANT READING TEACHER CBC WITH AUTO DIFFERENTIAL Routine 11/20/2024 5:33 AM ASSISTANT READING TEACHER POCT GLUCOSE DEVICE Routine 11/19/2024 8 :57 PM ASSISTANT READING TEACHER POCT GLUCOSE DEVICE Routine 11/19/2024 5 :10 PM ASSISTANT READING TEACHER POCT GLUCOSE DEVICE Routine 11/19/2024 1 2:24 PM ASSISTANT READING TEACHER POCT GLUCOSE DEVICE Routine 11/19/2024 1 1:36 AM ASSISTANT READING TEACHER POCT GLUCOSE DEVICE Routine 11/19/2024 8 :22 AM ASSISTANT READING TEACHER EGFR Routine 11/19/2024 6:23 AM ASSISTANT READING TEACHER DIFFERENTIAL AUTO Routine 11/19/2024 6:2 3 AM ASSISTANT READING TEACHER AMMONIA Routine 11/19/2024 6:23 AM ASSISTANT READING TEACHER COMPREHENSIVE METABOLIC PANEL Routine 11/19/2024 6:23 AM ASSISTANT READING TEACHER CBC WITH AUTO DIFFERENTIAL Routine 11/19/2024 6:23 AM ASSISTANT READING TEACHER POCT GLUCOSE DEVICE Routine 11/18/2024 8 :46 [address] ABDOMEN PELVIS WO CONTRAST IP Routine 11/18/2024 8:34 PM ASSISTANT READING TEACHER POCT GLUCOSE DEVICE Routine 11/18/2024 5 :49 PM ASSISTANT READING TEACHER POCT GLUCOSE DEVICE Routine 11/18/2024 1 2:43 PM ASSISTANT READING TEACHER POCT GLUCOSE DEVICE Routine 11/18/2024 7 :55 AM ASSISTANT READING TEACHER DIFFERENTIAL AUTO Routine 11/18/2024 6:3 5 AM ASSISTANT READING TEACHER CBC WITH AUTO DIFFERENTIAL Routine 11/18/2024 6:35 AM ASSISTANT READING TEACHER EGFR Routine 11/18/2024 5:52 AM ASSISTANT READING TEACHER FOLATE Routine 11/18/2024 5:52 AM ASSISTANT READING TEACHER VITAMIN B12 Routine 11/18/2024 5:52 AM ASSISTANT READING TEACHER COMPREHENSIVE METABOLIC PANEL Routine 11/18/2024 5:52 AM ASSISTANT READING TEACHER POCT GLUCOSE DEVICE Routine 11/17/2024 8 :52 PM ASSISTANT READING TEACHER POCT GLUCOSE DEVICE Routine 11/17/2024 6 :05 PM ASSISTANT READING TEACHER POCT GLUCOSE DEVICE Routine 11/17/2024 1 :08 PM ASSISTANT READING TEACHER POCT GLUCOSE DEVICE Routine 11/17/2024 9 :20 AM ASSISTANT READING TEACHER EGFR Routine 11/17/2024 7:01 AM ASSISTANT READING TEACHER DIFFERENTIAL AUTO Routine 11/17/2024 7:0 1 AM ASSISTANT READING TEACHER COMPREHENSIVE METABOLIC PANEL Routine 11/17/2024 7:01 AM ASSISTANT READING TEACHER CBC WITH AUTO DIFFERENTIAL Routine 11/17/2024 7:01 AM ASSISTANT READING TEACHER POCT GLUCOSE DEVICE Routine 11/16/2024 7 :44 PM ASSISTANT READING TEACHER POCT GLUCOSE DEVICE Routine 11/16/2024 6 :33 PM ASSISTANT READING TEACHER POCT GLUCOSE DEVICE Routine 11/16/2024 1 1:54 AM ASSISTANT READING TEACHER HEMOGLOBIN A1C Routine 11/16/2024 9:56 AM ASSISTANT READING TEACHER EGFR Routine 11/16/2024 9:56 AM ASSISTANT READING TEACHER DIFFERENTIAL AUTO Routine 11/16/2024 9:5 6 AM ASSISTANT READING TEACHER COMPREHENSIVE METABOLIC PANEL Routine 11/16/2024 9:56 AM ASSISTANT READING TEACHER CBC WITH AUTO DIFFERENTIAL Routine 11/16/2024 9:56 AM ASSISTANT READING TEACHER POCT GLUCOSE DEVICE Routine 11/16/2024 8 :53 AM ASSISTANT READING TEACHER POCT GLUCOSE DEVICE Routine 11/16/2024 1 2:30 AM ASSISTANT READING TEACHER POCT GLUCOSE DEVICE Routine 11/15/2024 8 :35 PM ASSISTANT READING TEACHER POCT GLUCOSE DEVICE Routine 11/15/2024 5 :29 PM ASSISTANT READING TEACHER POCT GLUCOSE DEVICE Routine 11/15/2024 1 :28 PM ASSISTANT READING TEACHER POCT GLUCOSE DEVICE Routine 11/15/2024 8 :56 AM ASSISTANT READING TEACHER MAGNESIUM Routine 11/15/2024 4:35 AM ASSISTANT READING TEACHER EGFR Routine 11/15/2024 4:35 AM ASSISTANT READING TEACHER DIFFERENTIAL AUTO Routine 11/15/2024 4:3 5 AM ASSISTANT READING TEACHER PROTIME-INR Routine 11/15/2024 4:35 AM ASSISTANT READING TEACHER COMPREHENSIVE METABOLIC PANEL Routine 11/15/2024 4:35 AM ASSISTANT READING TEACHER CBC WITH AUTO DIFFERENTIAL Routine 11/15/2024 4:35 AM ASSISTANT READING TEACHER POCT GLUCOSE DEVICE Routine 11/14/2024 9 :28 PM ASSISTANT READING TEACHER POCT GLUCOSE DEVICE Routine 11/14/2024 5 :48 PM ASSISTANT READING TEACHER SODIUM, URINE, RANDOM Routine 11/14/2024 3:29 PM ASSISTANT READING TEACHER URINALYSIS AND REFLEX TO MICROSCOPIC AND CULTURE STAT 11/14/2024 3:28 PM ASSISTANT READING TEACHER AMMONIA Add-On 11/14/2024 2:16 PM ASSISTANT READING TEACHER POCT GLUCOSE DEVICE Routine 11/14/2024 1 1:21 AM ASSISTANT READING TEACHER POCT GLUCOSE DEVICE Routine 11/14/2024 8:11 AM ASSISTANT READING TEACHER EGFR Routine 11/14/2024 5:03 AM ASSISTANT READING TEACHER DIFFERENTIAL AUTO Routine 11/14/2024 5:0 3 AM ASSISTANT READING TEACHER COMPREHENSIVE METABOLIC PANEL Routine 11/14/2024 5:03 AM ASSISTANT READING TEACHER CBC WITH AUTO DIFFERENTIAL Routine 11/14/2024 5:03 AM ASSISTANT READING TEACHER POCT GLUCOSE DEVICE Routine 11/14/2024 4 :41 AM ASSISTANT READING TEACHER POCT GLUCOSE DEVICE Routine 11/13/2024 7 :59 PM ASSISTANT READING TEACHER POCT GLUCOSE DEVICE Routine 11/13/2024 5 :16 [address]ANT [address]ER CT KNEE LEFT WO CONTRAST IP Routine 11/13/2024 4:52 PM ASSISTANT READING TEACHER US CHEST IP Routine 11/13/2024 2:21 PM ASSISTANT READING TEACHER POCT GLUCOSE DEVICE Routine 11/13/2024 2 :13 PM ASSISTANT READING TEACHER FLUORO GUIDED ASPIRATION KNEE LEFT IP Routine 11/13/2024 1:30 PM ASSISTANT READING TEACHER EGFR Routine 11/13/2024 9:02 AM ASSISTANT READING TEACHER DIFFERENTIAL AUTO Routine 11/13/2024 9:0 2 AM ASSISTANT READING TEACHER COMPREHENSIVE METABOLIC PANEL Routine 11/13/2024 9:02 AM ASSISTANT READING TEACHER CBC WITH AUTO DIFFERENTIAL Routine 11/13/2024 9:02 AM ASSISTANT READING TEACHER MAGNESIUM Routine 11/13/2024 9:02 AM ASSISTANT READING TEACHER POCT GLUCOSE DEVICE Routine 11/13/2024 8 :00 AM ASSISTANT READING TEACHER STREP PNEUMONIAE AG, URINE Routine 11/13/2024 12:28 AM ASSISTANT READING TEACHER LEGIONELLA ANTIGEN, URINE Routine 11/13/2024 12:28 AM ASSISTANT READING TEACHER POCT GLUCOSE DEVICE Routine 11/12/2024 1 0:04 PM ASSISTANT READING TEACHER TRANSTHORACIC ECHO (TTE) COMPLETE W DOPPLER/CF WO CONTRAST Routine 11/12/2024 4:14 PM ASSISTANT READING TEACHER XR KNEE LEFT 1 OR 2 VIEWS IP Routine 11/12/2024 2:18 PM ASSISTANT READING TEACHER POCT GLUCOSE DEVICE Routine 11/12/2024 1 2:11 PM ASSISTANT READING TEACHER POCT GLUCOSE DEVICE Routine 11/12/2024 1 0:02 AM ASSISTANT READING TEACHER EGFR Routine 11/12/2024 8:29 AM ASSISTANT READING TEACHER DIFFERENTIAL AUTO Routine 11/12/2024 8:2 9 AM ASSISTANT READING TEACHER CBC WITH AUTO DIFFERENTIAL Routine 11/12/2024 8:29 AM ASSISTANT READING TEACHER COMPREHENSIVE METABOLIC PANEL Routine 11/12/2024 8:29 AM ASSISTANT READING TEACHER POCT GLUCOSE DEVICE Routine 11/12/2024 3 :01 AM ASSISTANT READING TEACHER BLOOD CULTURE STAT 11/11/2024 9:45 PM ASSISTANT READING TEACHER BLOOD CULTURE STAT 11/11/2024 9:45 PM ASSISTANT READING TEACHER CT CHEST ABDOMEN PELVIS WO CONTRAST ED 11/11/2024 8:07 PM ASSISTANT READING TEACHER XR CHEST 1 VIEW ED 11/11/2024 5:30 PM ASSISTANT READING TEACHER EGFR STAT 11/11/2024 5:10 PM ASSISTANT READING TEACHER DIFFERENTIAL AUTO STAT 11/11/2024 5:1 0 PM ASSISTANT READING TEACHER PRO B-TYPE NATRIURETIC PEPTIDE STAT 11/11/2024 5:10 PM ASSISTANT READING TEACHER SEPSIS LACTATE WITH REFLEX Routine 11/11/2024 5:10 PM ASSISTANT READING TEACHER COMPREHENSIVE METABOLIC PANEL STAT 11/11/2024 5:10 PM ASSISTANT READING TEACHER CBC WITH AUTO DIFFERENTIAL STAT 11/11/2024 5:10 PM ASSISTANT READING TEACHER CARDIOLOGY DOCUMENT SCAN Routine 11/01/2024 10:08 AM ASSISTANT READING TEACHER CARDIOLOGY DOCUMENT SCAN Routine 10/31/2024 9:21 AM ASSISTANT READING TEACHER POCT LIPID PANEL Routine 11/15/2023 2:47 PM ASSISTANT READING TEACHER Lipid screening from Last 3 Months or [...] Stewart Greene M.D. RB: BECKI Report ID: [id number] Reading Location: [id number] Procedure Note Stewart Greene MD - 12/30/2024 [...] Stewart Greene M.D. RB: BECKI Report ID: [id number] Reading Location: [id number] us Samara MEDEIROS IMG XR PROCEDURES Final Result * US SONIA (11/26/2024 2:32 PM ASSISTANT READING TEACHER) Anatomical Region Laterality Modality Vascular N/A Ultrasound 11/26/2024 12:3 5 PM ASSISTANT READING TEACHER Narrative 11/27/2024 9:12 AM ASSISTANT READING TEACHER Vascular & Vein Surgery [facility] [place] [address] Lower Extremity Arterial Doppler Report Patient Name: LOU ISLAS B : 1955 Study Date: 11/26/2024 12:35:00 PM Gender: F Night Manager: Birdseye,Maira RVT Location: VVSE Ref Provider: LEXIE RCUKER Quality: Adequate Order Provider: LEXIE RUCKER PROCEDURES: Arterial Report: Ankle - Brachial Index Doppler exam. INDICATIONS: BLE wounds with varicose veins. HISTORY: Hypertension. Hyperlipidemia. Diabetic. CHF. Former smoker. COMPARISONS: No previous exams. MEASUREMENTS: Right Value Left Value Rt Brachial Pressure 104 mmHg Lt Brachial Pressure 111 mmHg Rt SALT WASHER Pressure >220 mmHg Lt SALT WASHER Pressure >220 mmHg Rt DPA Pressure 196 [...] By: Lexie Rucker MD 11/27/2024 8:47:23 AM ASSISTANT READING TEACHER Procedure Note Lexie Rucker MD - 11/27/2024 Vascular & Vein Surgery [address] [facility] [place] [address] Lower Extremity Arterial Doppler Report Patient Name: LOU ISLAS B : 1955 Study Date: 11/26/2024 12:35:00 PM Gender: F Night Manager: Maira Gonzalez RVT Location: VVSE Ref Provider: LEXIE RUCKER Quality: Adequate Order Provider: LEXIE RUCKER PROCEDURES: Arterial Report: Ankle - Brachial Index Doppler exam. INDICATIONS: BLE wounds with varicose veins. HISTORY: Hypertension. Hyperlipidemia. Diabetic. CHF. Former smoker. COMPARISONS: No previous exams. MEASUREMENTS: Right Value Left Value Rt Brachial Pressure 104 mmHg Lt Brachial Pressure 111 mmHg Rt SALT WASHER Pressure >220 mmHg Lt SALT WASHER Pressure >220 mmHg Rt DPA Pressure 196 [...] By: Lexie Rucker MD 11/27/2024 8:47:23 AM ASSISTANT READING TEACHER us Lexie Rucker MD IMG US PROCEDURES Final Result * US Venous Reflux Bilateral (11/26/2024 2:32 PM ASSISTANT READING TEACHER) Anatomical Region Laterality Modality Vascular Bilateral Ultrasound 11/26/2024 12:5 9 PM ASSISTANT READING TEACHER Narrative 11/27/2024 9:12 AM ASSISTANT READING TEACHER Vascular & Vein Surgery [address] [place] [address] Lower Extremity Venous Reflux Duplex Report Patient Name: LOU ISLAS B : 1955 (69y 7m) Study Date: 11/26/2024 12:59:40 PM Gender: F Night Manager: Location: VVSE Ref Provider: LEXIE RUCKER Quality: [...] in sapheno-femoral junction and small saphenous vein. Patch Washer vein noted at distal posterior medial calf, [...] By: Lexie Rucker MD 11/27/2024 8:47:00 AM ASSISTANT READING TEACHER Procedure Note Lexie Rucker MD - 11/27/2024 Vascular & Vein Surgery [facility] [address] Lower Extremity Venous Reflux Duplex Report Patient Name: LOU ISLAS B : 1955 (69y 7m) Study Date: 11/26/2024 12:59:40 PM Gender: F Night Manager: NIEVES Location: VVSE Ref Provider: LEXIE RUCKER [...] noted in sapheno-femoral junction and small saphenous vein.Patch Washer vein noted at distal posterior medial calf, [...] By: Lexie Rucker MD 11/27/2024 8:47:00 AM ASSISTANT READING TEACHER us Lexie Rucker MD IMG US PROCEDURES Final Result * POCT glucose (11/20/2024 5:57 PM ASSISTANT READING TEACHER) Glucose, POC 175 70 - 199 mg/dL Comment:Testing performed by : [address] [address] Blood 11/20/2024 5:57 PM ASSISTANT READING TEACHER 11/20/2024 5:57 PM ASSISTANT READING TEACHER us Joe Herron MD LAB POCT ORDERABLES - DEVICE Final Result [facility] [address] [facility] Department [place] [address] * POCT glucose (11/20/2024 12:28 PM ASSISTANT READING TEACHER) Glucose, POC 186 70 - 199 mg/dL Comment:Testing performed by : [address] [address] Glucose comment 1 Use This Result DAYANA CARPIO Comment:Testing performed by : [address] [address] Glucose comment 2 RN/MD Notified DAYANA CARPIO Comment:Testing performed by : [address] [address] Blood 11/20/2024 12:2 8 PM ASSISTANT READING TEACHER 11/20/2024 12:28 PM ASSISTANT READING TEACHER Joe Herron MD LAB POCT ORDERABLES - DEVICE Final Result Performing Organization Address [facility] de Phone Number DAYANA [address] [address] * POCT glucose (11/20/2024 8:57 AM ASSISTANT READING TEACHER) [facility] Glucose, POC 157 70 - 199 mg/dL Comment:Testing performed by : [address], [address] Glucose comment 1 Use This Result DAYANA Comment:Testing performed by : [address], [address] Glucose comment 2 RN/MD Notified DAYANA Comment:Testing performed by : [address] [address] Blood 11/20/2024 8:57 AM ASSISTANT READING TEACHER 11/20/2024 8:57 AM ASSISTANT READING TEACHER Joe Herron MD LAB POCT ORDERABLES - DEVICE Final Result Performing Organization Address [facility] de Phone Number MARY ALICE[address] [address] * (ABNORMAL) eGFR (11/20/2024 5:33 AM ASSISTANT READING TEACHER) [facility] eGFR 24(L) >=60 mL/min/1. 73 m2 [...] was last reviewed 2021. Testing performed by: [address] [address] Blood 11/20/2024 5:33 AM ASSISTANT READING TEACHER 11/20/2024 5:56 AM ASSISTANT READING TEACHER us Ivan Vargas MD LAB BLOOD ORDERABLES Final Re sult MARY ALICENIKOS [address] [facility] Department [place] [address] * (ABNORMAL) Differential, auto (11/20/2024 5:33 AM ASSISTANT READING TEACHER) Neutrophil abs 3.7 1.5 - 6.5 K/cumm Comment:Testing performed by : [address] [address] Imm gran abs 0.1 0.0 - 0.1 K/cumm DAYANA Comment:Testing performed by : [address] [address] Lymphocyte abs 1.1 0.8 - 3.3 K/cumm DAYANA Comment:Testing performed by : [address] [address] Monocyte abs 1.0(H) 0.2 - 0.8 K/cumm DAYANA Comment:Testing performed by : [address] [address] Eosinophil abs 0.8(H) 0.0 - 0.5 K/cumm DAYANA Comment:Testing performed by : [address] [address] Basophil abs 0.1 0.0 - 0.1 K/cumm DAYANA Comment:Testing performed by : [address] [address] Neutrophil pct 55.1 % [facility] Comment: Interpretive Data Percent cell count reference ranges are not reported, since discordance with absolute values may lead to misinterpretation of CBC data. Current Interpretive Data was last revised on 2018. Testing performed by: [facility], [address] [place] [address]., [address] Imm gran pct 1.2 % [facility] Comment: Interpretive Data Percent cell count reference ranges are not reported, since discordance with absolute values may lead to misinterpretation of CBC data. Current Interpretive Data was last revised on 2018. Testing performed by: [address] [address] Lymphocyte pct 16.2 % [facility] Comment: Interpretive Data Percent cell count reference ranges are not reported, since discordance with absolute values may lead to misinterpretation of CBC data. Current Interpretive Data was last revised on 2018. Testing performed by: [address] [address] Monocyte pct 14.3 % [facility] Comment: Interpretive Data Percent cell count reference ranges are not reported, since discordance with absolute values may lead to misinterpretation of CBC data. Current Interpretive Data was last revised on 2018. Testing performed by: [address] [address] Eosinophil pct 12.3 % [facility] Comment: Interpretive Data Percent cell count reference ranges are not reported, since discordance with absolute values may lead to misinterpretation of CBC data. Current Interpretive Data was last revised on 2018. Testing performed by: [address] [address] Basophil pct 0.9 % [facility] Comment: Interpretive Data Percent cell count reference ranges are not reported, since discordance with absolute values may lead to misinterpretation of CBC data. Current Interpretive Data was last revised on 2018. Testing performed by: [address] [address] Blood 11/20/2024 5:33 AM ASSISTANT READING TEACHER 11/20/2024 5:56 AM ASSISTANT READING TEACHER us Ivan Vargas MD LAB BLOOD ORDERABLES Final Re sult [facility] [address] [facility] Department of Laboratories [place], [place] [id number] * (ABNORMAL) CBC with auto differential (11/20/2024 5:33 AM ASSISTANT READING TEACHER) WBC 6.7 3.8 - 9.9 K/cumm Comment:Testing performed by : [address] [address] Hgb 9.2(L) 11.9 - 15.5 g/dL DAYANA Comment:Testing performed by : [address] [address] Hct 29.0(L) 35.6 - 45.5 % DAYANA Comment:Testing performed by : [address], [address] Plt 275 150 - 400 K/cumm DAYANA Comment:Testing performed by : [address], [address] MPV 11.0 9.1 - 12.3 fL DAYANA Comment:Testing performed by : [address] [address] RBC 2.80(L) 3.90 - 5.20 M/cumm DAYANA Comment:Testing performed by : [address] [address] MCV 103.6(H) 81.3 - 96.4 fL DAYANA Comment:Testing performed by : [address] [address] MCH 32.9 27.1 - 33.3 pg DAYANA Comment:Testing performed by : [address] [address] MCHC 31.7(L) 32.3 - 35.7 g/dL DAYANA Comment:Testing performed by : [address], [address] RDW CV 16.5(H) 11.1 - 14.9 % DAYANA Comment:Testing performed by : [address] [address] RDW SD 62.3(H) 35.7 - 48.1 fL DAYANA CARPIO Comment:Testing performed by : [address] [address] NRBC abs 0.00 0.00 - 0.01 K/cumm DAYANA CARPIO Comment:Testing performed by : [address] [address] Blood 11/20/2024 5:33 AM ASSISTANT READING TEACHER 11/20/2024 5:56 AM ASSISTANT READING TEACHER us Ivan Vargas MD LAB BLOOD ORDERABLES Final Re sult DAYANA [address] [facility] [place] [address] * (ABNORMAL) Comprehensive metabolic panel (11/20/2024 5:33 AM ASSISTANT READING TEACHER) Sodium 134(L) 135 - 145 mmol/L Comment:Testing performed by : [address] [address] Potassium, pl 3.8 3.3 - 4.9 mmol/L DAYANA CARPIO Comment:Testing performed by : [address] [address] Chloride 91(L) 97 - 110 mmol/L DAYANA CARPIO Comment:Testing performed by : [address] [address] CO2 26 22 - 32 mmol/L DAYANA CARPIO Comment:Testing performed by : [address] [address] Anion gap 17(H) 2 - 15 mmol/L DAYANA CARPIO Comment:Testing performed by : [address] [address] BUN 51(H) 6 - 25 mg/dL DAYANA CARPIO Comment:Testing performed by : [address] [address] Creatinine 2.20(H) 0.60 - 1.10 mg/dL DAYANA CARPIO Comment:Testing performed by : [address] [address] Glucose 149 70 - 199 mg/dL DAYANA [...] was last revised 2022. Testing performed by: [address] [address] Calcium 10.3 8.5 - 10.3 mg/dL DAYANA Comment:Testing performed by : [address] [address] Bilirubin, total 1.3(H) 0.1 - 1.2 mg/dL DAYANA Comment:Testing performed by : [address] [address] Protein, pl 6.6 6.5 - 8.5 g/dL DAYANA Comment:Testing performed by : [address] [address] Albumin 3.8 3.5 - 5.0 g/dL DAYANA Comment:Testing performed by : [address] [address] Alk phos 391(H) 40 - 130 Units/L DAYANA Comment:Testing performed by : [address] [address] ALT 15 7 - 45 Units/L DAYANA Comment:Testing performed by : [address] [address] AST 29 10 - 45 Units/L DAYANA Comment:Testing performed by : [address] [address] Blood 11/20/2024 5:33 AM ASSISTANT READING TEACHER 11/20/2024 5:56 AM ASSISTANT READING TEACHER us Ivan Vargas MD LAB BLOOD ORDERABLES Final Re sult Performing Organization Address [facility] Co de Phone Number MARY ALICE[address] [place] [employer] [place] [address] * (ABNORMAL) POCT glucose (11/19/2024 8:57 PM ASSISTANT READING TEACHER) Glucose, POC 254(H) 70 - 199 mg/dL Comment:Testing performed by : [address] [address] Glucose comment 1 Use This Result DAYANA Comment:Testing performed by : [address] [address] Blood 11/19/2024 8:57 PM ASSISTANT READING TEACHER 11/19/2024 8:57 PM ASSISTANT READING TEACHER us Joe Herron MD LAB POCT ORDERABLES - DEVICE Final Result Performing Organization Address [facility] de Phone Number [address] [place] [employer] [place] [address] * (ABNORMAL) POCT glucose (11/19/2024 5:10 PM ASSISTANT READING TEACHER) Glucose, POC 225(H) 70 - 199 mg/dL Comment:Testing performed by : [address] [address] Blood 11/19/2024 5:10 PM ASSISTANT READING TEACHER 11/19/2024 5:10 PM ASSISTANT READING TEACHER us Joe Herron MD LAB POCT ORDERABLES - DEVICE Final Result Performing Organization Address [facility] Co de Phone Number [address] [place] [employer] [place] [address] * POCT glucose (11/19/2024 12:24 PM ASSISTANT READING TEACHER) Glucose, POC 191 70 - 199 mg/dL Comment:Testing performed by : [address] [address] Blood 11/19/2024 12:2 4 PM ASSISTANT READING TEACHER 11/19/2024 12:24 PM ASSISTANT READING TEACHER Joe Herron MD LAB POCT ORDERABLES - DEVICE Final Result Performing Organization Address [facility] Co de Phone Number DAYANA [address] [address] * POCT glucose (11/19/2024 11:36 AM ASSISTANT READING TEACHER) Glucose, POC 181 70 - 199 mg/dL Comment:Testing performed by : [address] [address] Blood 11/19/2024 11:3 6 AM ASSISTANT READING TEACHER 11/19/2024 11:36 AM ASSISTANT READING TEACHER Joe Herron MD LAB POCT ORDERABLES - DEVICE Final Result Performing Organization Address [facility] de Phone Number MARY ALICE[address] [address] * POCT glucose (11/19/2024 8:22 AM ASSISTANT READING TEACHER) Glucose, POC 163 70 - 199 mg/dL Comment:Testing performed by : [address] [address] Glucose comment 1 Use This Result DAYANA Comment:Testing performed by : [address] [address] Blood 11/19/2024 8:22 AM ASSISTANT READING TEACHER 11/19/2024 8:22 AM ASSISTANT READING TEACHER Joe Herron MD LAB POCT ORDERABLES - DEVICE Final Result Performing Organization Address [facility] Co de Phone Number DAYANA [address] [address] * (ABNORMAL) eGFR (11/19/2024 6:23 AM ASSISTANT READING TEACHER) eGFR 28(L) >=60 mL/min/1. 73 m2 Comment: [...] was last reviewed 2021. Testing performed by: [address] [address] Blood 11/19/2024 6:23 AM ASSISTANT READING TEACHER 11/19/2024 6:31 AM ASSISTANT READING TEACHER us Ivan Vargas MD LAB BLOOD ORDERABLES Final Re sult DAYANA CARPIO [address] [facility] Department of Laboratories [place], [place] [id number] * (ABNORMAL) Differential, auto (11/19/2024 6:23 AM ASSISTANT READING TEACHER) Pathologist [facility] Neutrophil abs 3.7 1.5 - 6.5 K/cumm Comment:Testing performed by : [address] [address] Imm gran abs 0.1 0.0 - 0.1 K/cumm DAYANA CARPIO Comment:Testing performed by : [address] [address] Lymphocyte abs 1.1 0.8 - 3.3 K/cumm DAYANA Comment:Testing performed by : [address] [address] Monocyte abs 1.0(H) 0.2 - 0.8 K/cumm [facility] Comment:Testing performed by : [address] [address] Eosinophil abs 1.1(H) 0.0 - 0.5 K/cumm [facility] Comment:Testing performed by : [address] [address] Basophil abs 0.1 0.0 - 0.1 K/cumm [facility] Comment:Testing performed by : [address] [address] Neutrophil pct 52.7 % [facility] Comment: Interpretive Data Percent cell count reference ranges are not reported, since discordance with absolute values may lead to misinterpretation of CBC data. Current Interpretive Data was last revised on 2018. Testing performed by: [address] [address] Imm gran pct 1.1 % [facility] Comment: Interpretive Data Percent cell count reference ranges are not reported, since discordance with absolute values may lead to misinterpretation of CBC data. Current Interpretive Data was last revised on 2018. Testing performed by: [address] [address] Lymphocyte pct 15.8 % [facility] Comment: Interpretive Data Percent cell count reference ranges are not reported, since discordance with absolute values may lead to misinterpretation of CBC data. Current Interpretive Data was last revised on 2018. Testing performed by: [address] [address] Monocyte pct 14.2 % [facility] Comment: Interpretive Data Percent cell count reference ranges are not reported, since discordance with absolute values may lead to misinterpretation of CBC data. Current Interpretive Data was last revised on 2018. Testing performed by: [address] [address] Eosinophil pct 15.2 % [facility] Comment: Interpretive Data Percent cell count reference ranges are not reported, since discordance with absolute values may lead to misinterpretation of CBC data. Current Interpretive Data was last revised on 2018. Testing performed by: [address] [place]., [address] Basophil pct 1.0 % DAYANA Comment: Interpretive Data Percent cell count reference ranges are not reported, since discordance with absolute values may lead to misinterpretation of CBC data. Current Interpretive Data was last revised on 2018. Testing performed by: [address] [address] Blood 11/19/2024 6:23 AM ASSISTANT READING TEACHER 11/19/2024 6:31 AM ASSISTANT READING TEACHER us Ivan Vargas MD LAB BLOOD ORDERABLES Final Re sult DAYANA [address] [facility] [place] [address] * (ABNORMAL) CBC with auto differential (11/19/2024 6:23 AM ASSISTANT READING TEACHER) WBC 7.0 3.8 - 9.9 K/cumm Comment:Testing performed by : [address] [address] Hgb 8.9(L) 11.9 - 15.5 g/dL DAYANA Comment:Testing performed by : [address] [address] Hct 28.1(L) 35.6 - 45.5 % DAYANA Comment:Testing performed by : [address] [address] Plt 268 150 - 400 K/cumm DAYANA Comment:Testing performed by : [address] [address] MPV 11.2 9.1 - 12.3 fL DAYANA Comment:Testing performed by : [address] [address] RBC 2.75(L) 3.90 - 5.20 M/cumm DAYANA Comment:Testing performed by : [address] [address] MCV 102.2(H) 81.3 - 96.4 fL DAYANA Comment:Testing performed by : [address] [address] MCH 32.4 27.1 - 33.3 pg DAYANA CARPIO Comment:Testing performed by : [address] [address] MCHC 31.7(L) 32.3 - 35.7 g/dL DAYANA CARPIO Comment:Testing performed by : [address] [address] RDW CV 16.5(H) 11.1 - 14.9 % DAYANA CARPIO Comment:Testing performed by : [address], [address] RDW SD 60.4(H) 35.7 - 48.1 fL DAYANA Comment:Testing performed by : [address] [address] NRBC abs 0.00 0.00 - 0.01 K/cumm DAYANA Comment:Testing performed by : [address], [address] Blood 11/19/2024 6:23 AM ASSISTANT READING TEACHER 11/19/2024 6:31 AM ASSISTANT READING TEACHER Ivan Vargas MD LAB BLOOD ORDERABLES Final Re sult Performing Organization Address City/[facility] Co de Phone Number DAYANA [address] [facility] [place] [address] * Ammonia (11/19/2024 6:23 AM ASSISTANT READING TEACHER) Ammonia 24 <=50 mcmol/L Comment: Please note on 02/21/2024 the unit of measure changed from mcg/dL to mcmol/L. Current Interpretive Data was last revised on 2024. Testing performed by: [address] [address] Blood 11/19/2024 6:23 AM ASSISTANT READING TEACHER 11/19/2024 6:27 AM ASSISTANT READING TEACHER Ivan Vargas MD LAB BLOOD ORDERABLES Final Re sult Performing Organization Address City/[facility] Co de Phone Number DAYANA [address] [facility] [place] [address] * (ABNORMAL) Comprehensive metabolic panel (11/19/2024 6:23 AM ASSISTANT READING TEACHER) Sodium 133(L) 135 - 145 mmol/L Comment:Testing performed by : [address] [address] Potassium, pl 3.6 3.3 - 4.9 mmol/L DAYANA Comment:Testing performed by : [address] [address] Chloride 92(L) 97 - 110 mmol/L DAYANA Comment:Testing performed by : [address] [address] CO2 27 22 - 32 mmol/L DAYANA Comment:Testing performed by : [address] [address] Anion gap 14 2 - 15 mmol/L DAYANA Comment:Testing performed by : [address] [address] BUN 46(H) 6 - 25 mg/dL DAYANA Comment:Testing performed by : [address] [address] Creatinine 1.90(H) 0.60 - 1.10 mg/dL DAYANA Comment:Testing performed by : [address] [address] Glucose 151 70 - 199 mg/dL DAYANA Comment: Interpretive [...] was last revised 2022. Testing performed by: [address] [address] Calcium 10.2 8.5 - 10.3 mg/dL DAYANA Comment:Testing performed by : [address] [address] Bilirubin, total 1.4(H) 0.1 - 1.2 mg/dL DAYANA Comment:Testing performed by : [address], [place]., [address] Protein, pl 6.3(L) 6.5 - 8.5 g/dL DAYANA Comment:Testing performed by : [address], [place]., [address] Albumin 3.6 3.5 - 5.0 g/dL DAYANA Comment:Testing performed by : [address] [address] Alk phos 390(H) 40 - 130 Units/L DAYANA Comment:Testing performed by : [address] [address] ALT 17 7 - 45 Units/L DAYANA Comment:Testing performed by : [address] [address] AST 31 10 - 45 Units/L DAYANA Comment:Testing performed by : [address] [address] Blood 11/19/2024 6:23 AM ASSISTANT READING TEACHER 11/19/2024 6:31 AM ASSISTANT READING TEACHER Ivan Vargas MD LAB BLOOD ORDERABLES Final Re sult [facility] [address] [facility] [place] [address] * (ABNORMAL) POCT glucose (11/18/2024 8:46 PM ASSISTANT READING TEACHER) [facility] Glucose, POC 234(H) 70 - 199 mg/dL Comment:Testing performed by : [address] [address] Glucose comment 1 Use This Result DAYANA Comment:Testing performed by : [address] [address] Glucose comment 2 RN/MD Notified [facility]ERN[facility] Comment:Testing performed by : [facility], [address] [place] [address], [place]., [address] Blood 11/18/2024 8:46 PM ASSISTANT READING TEACHER 11/18/2024 8:46 PM ASSISTANT READING TEACHER us Ivan Vargas MD LAB POCT ORDERABLES - DEVICE Final Result DAYANA CARPIO [address] [facility] [place] [address] * CT Abdomen Pelvis WO Contrast (11/18/2024 8:34 PM ASSISTANT READING TEACHER) Anatomical Region Laterality Modality Body N/A Computed Tomogra phy 11/18/2024 9:07 PM ASSISTANT READING TEACHER Narrative 11/18/2024 9:19 PM ASSISTANT READING TEACHER EXAM DESCRIPTION: CT ABDOMEN PELVIS WO CONTRAST [...] Pedro Alexis M.D. KT: KIM Report ID: [id number] Reading Location: [id number] Procedure Note Pedro Alexis MD - 11/18/2024 [...] Pedro Alexis M.D. KT: KIM Report ID: [id number] Reading Location: [place] [address] Ivan Vargas MD IMG CT PROCEDURES Final Resul t * (ABNORMAL) POCT glucose (11/18/2024 5:49 PM ASSISTANT READING TEACHER) [facility] Glucose, POC 216(H) 70 - 199 mg/dL Comment:Testing performed by : [address] [address] Glucose comment 1 RN/MD Notified DAYANA CARPIO Comment:Testing performed by : [address] [address] Glucose comment 2 Use This Result DAYANA CARPIO Comment:Testing performed by : [address] [address] Blood 11/18/2024 5:49 PM ASSISTANT READING TEACHER 11/18/2024 5:49 PM ASSISTANT READING TEACHER us Ivan Vargas MD LAB POCT ORDERABLES - DEVICE Final Result Performing Organization Address [facility] Co de Phone Number DAYANA [facility] [place] [address] * (ABNORMAL) POCT glucose (11/18/2024 12:43 PM ASSISTANT READING TEACHER) Glucose, POC 232(H) 70 - 199 mg/dL Comment:Testing performed by : [address] [address] Glucose comment 1 Use This Result DAYANA Comment:Testing performed by : [address] [address] Blood 11/18/2024 12:4 3 PM ASSISTANT READING TEACHER 11/18/2024 12:43 PM ASSISTANT READING TEACHER Result [facility] Ivan Vargas MD LAB POCT ORDERABLES - DEVICE Final Result Performing Organization Address [facility] de Phone Number DAYANA [address] [address] * POCT glucose (11/18/2024 7:55 AM ASSISTANT READING TEACHER) Glucose, POC 145 70 - 199 mg/dL Comment:Testing performed by : [address] [address] Glucose comment 1 Use This Result DAYANA Comment:Testing performed by : [address] [address] Glucose comment 2 RN/MD Notified DAYANA Comment:Testing performed by : [address] [address] Blood 11/18/2024 7:55 AM ASSISTANT READING TEACHER 11/18/2024 7:55 AM ASSISTANT READING TEACHER Result [facility] Ivan Vargas MD LAB POCT ORDERABLES - DEVICE Final Result Performing Organization Address [facility] Co de Phone Number DAYANA [address] [address] * (ABNORMAL) Differential, auto (11/18/2024 6:35 AM ASSISTANT READING TEACHER) Neutrophil abs 3.7 1.5 - 6.5 K/cumm Comment:Testing performed by : [address] [address] Imm gran abs 0.1 0.0 - 0.1 K/cumm DAYANA Comment:Testing performed by : [address] [address] Lymphocyte abs 1.0 0.8 - 3.3 K/cumm [facility] Comment:Testing performed by : [address] [address] Monocyte abs 1.2(H) 0.2 - 0.8 K/cumm [facility] Comment:Testing performed by : [address] [address] Eosinophil abs 1.0(H) 0.0 - 0.5 K/cumm [facility] Comment:Testing performed by : [address] [address] Basophil abs 0.1 0.0 - 0.1 K/cumm [facility] Comment:Testing performed by : [address] [address] Neutrophil pct 52.9 % [facility] Comment: Interpretive Data Percent cell count reference ranges are not reported, since discordance with absolute values may lead to misinterpretation of CBC data. Current Interpretive Data was last revised on 2018. Testing performed by: [address] [address] Imm gran pct 1.1 % [facility] Comment: Interpretive Data Percent cell count reference ranges are not reported, since discordance with absolute values may lead to misinterpretation of CBC data. Current Interpretive Data was last revised on 2018. Testing performed by: [address] [address] Lymphocyte pct 14.4 % [facility] Comment: Interpretive Data Percent cell count reference ranges are not reported, since discordance with absolute values may lead to misinterpretation of CBC data. Current Interpretive Data was last revised on 2018. Testing performed by: [address] [address] Monocyte pct 17.1 % DAYANA Comment: Interpretive Data Percent cell count reference ranges are not reported, since discordance with absolute values may lead to misinterpretation of CBC data. Current Interpretive Data was last revised on 2018. Testing performed by: [address] [address] Eosinophil pct 13.5 % DAYANA Comment: Interpretive Data Percent cell count reference ranges are not reported, since discordance with absolute values may lead to misinterpretation of CBC data. Current Interpretive Data was last revised on 2018. Testing performed by: [address] [address] Basophil pct 1.0 % DAYANA Comment: Interpretive Data Percent cell count reference ranges are not reported, since discordance with absolute values may lead to misinterpretation of CBC data. Current Interpretive Data was last revised on 2018. Testing performed by: [address] [address] Blood 11/18/2024 6:35 AM ASSISTANT READING TEACHER 11/18/2024 6:57 AM ASSISTANT READING TEACHER us Ivan Vargas MD LAB BLOOD ORDERABLES Final Re sult DAYANA [address] [facility] [place] [address] * (ABNORMAL) CBC with auto differential (11/18/2024 6:35 AM ASSISTANT READING TEACHER) WBC 7.1 3.8 - 9.9 K/cumm Comment:Testing performed by : [address] [address] Hgb 9.0(L) 11.9 - 15.5 g/dL DAYANA CARPIO Comment:Testing performed by : [address] [address] Hct 28.2(L) 35.6 - 45.5 % DAYANA Comment:Testing performed by : [address] [address] Plt 247 150 - 400 K/cumm DAYANA Comment:Testing performed by : [address] [address] MPV 11.1 9.1 - 12.3 fL DAYANA CARPIO Comment:Testing performed by : [address] [address] RBC 2.73(L) 3.90 - 5.20 M/cumm DAYANA CARPIO Comment:Testing performed by : [address] [address] MCV 103.3(H) 81.3 - 96.4 fL DAYANA Comment:Testing performed by : [address] [address] MCH 33.0 27.1 - 33.3 pg DAYANA Comment:Testing performed by : [address] [address] MCHC 31.9(L) 32.3 - 35.7 g/dL DAYANA Comment:Testing performed by : [address] [address] RDW CV 16.6(H) 11.1 - 14.9 % DAYANA Comment:Testing performed by : [address] [address] RDW SD 62.6(H) 35.7 - 48.1 fL DAYANA Comment:Testing performed by : [address] [address] NRBC abs 0.00 0.00 - 0.01 K/cumm DAYANA Comment:Testing performed by : [address] [address] Blood 11/18/2024 6:35 AM ASSISTANT READING TEACHER 11/18/2024 6:57 AM ASSISTANT READING TEACHER us Ivan Vargas MD LAB BLOOD ORDERABLES Final Re sult DAYANA [address] [facility] [place] [address] * (ABNORMAL) eGFR (11/18/2024 5:52 AM ASSISTANT READING TEACHER) eGFR 28(L) >=60 mL/min/1. 73 m2 Comment: [...] was last reviewed 2021. Testing performed by: [address] [address] Blood 11/18/2024 5:52 AM ASSISTANT READING TEACHER 11/18/2024 6:24 AM ASSISTANT READING TEACHER us Ivan Vargas MD LAB BLOOD ORDERABLES Final Re sult Performing Organization Address [facility] Co de Phone Number [place] [phone] [facility] [place] [address] * Folate (11/18/2024 5:52 AM ASSISTANT READING TEACHER) Folic acid >20.0 >=5.0 ng/mL Comment:Testing performed by : [address] [address] Blood 11/18/2024 5:52 AM ASSISTANT READING TEACHER 11/18/2024 6:24 AM ASSISTANT READING TEACHER us Ivan Vargas MD LAB BLOOD ORDERABLES Final Re sult [address] [place] [address] * Vitamin B12 (11/18/2024 5:52 AM ASSISTANT READING TEACHER) [facility] Vitamin B12 910 230 - 1,250 pg/mL Comment:Testing performed by : [address] [address] Blood 11/18/2024 5:52 AM ASSISTANT READING TEACHER 11/18/2024 6:24 AM ASSISTANT READING TEACHER us Ivan Vargas MD LAB BLOOD ORDERABLES Final Re sult DAYANA [facility] [place] [address] * (ABNORMAL) Comprehensive metabolic panel (11/18/2024 5:52 AM ASSISTANT READING TEACHER) [facility] Sodium 132(L) 135 - 145 mmol/L Comment:Testing performed by : [address] [address] Potassium, pl 3.9 3.3 - 4.9 mmol/L DAYANA Comment:Testing performed by : [address] [address] Chloride 92(L) 97 - 110 mmol/L DAYANA Comment:Testing performed by : [address] [address] CO2 27 22 - 32 mmol/L DAYANA Comment:Testing performed by : [address] [address] Anion gap 13 2 - 15 mmol/L DAYANA Comment:Testing performed by : [address] [address] BUN 43(H) 6 - 25 mg/dL DAYANA Comment:Testing performed by : [address] [address] Creatinine 1.90(H) 0.60 - 1.10 mg/dL DAYANA Comment:Testing performed by : [address] [address] Glucose 140 70 - 199 mg/dL DAYANA [...] was last revised 2022. Testing performed by: [address] [address] Calcium 10.0 8.5 - 10.3 mg/dL DAYANA Comment:Testing performed by : [address] [address] Bilirubin, total 1.5(H) 0.1 - 1.2 mg/dL DAYANA Comment:Testing performed by : [address] [address] Protein, pl 6.3(L) 6.5 - 8.5 g/dL DAYANA Comment:Testing performed by : [address] [address] Albumin 3.8 3.5 - 5.0 g/dL DAYANA Comment:Testing performed by : [address] [address] Alk phos 369(H) 40 - 130 Units/L DAYANA Comment:Testing performed by : [address] [address] ALT 17 7 - 45 Units/L DAYANA Comment:Testing performed by : [address] [address] AST 36 10 - 45 Units/L DAYANA Comment:Testing performed by : [address] [address] Blood 11/18/2024 5:52 AM ASSISTANT READING TEACHER 11/18/2024 6:24 AM ASSISTANT READING TEACHER us Ivan Vargas MD LAB BLOOD ORDERABLES Final Re sult Performing Organization Address City/[facility] Co de Phone Number DAYANA [address] [employer] [place] [address] * (ABNORMAL) POCT glucose (11/17/2024 8:52 PM ASSISTANT READING TEACHER) Glucose, POC 275(H) 70 - 199 mg/dL Comment:Testing performed by : [address] [address] Blood 11/17/2024 8:52 PM ASSISTANT READING TEACHER 11/17/2024 8:52 PM ASSISTANT READING TEACHER Ivan Vargas MD LAB POCT ORDERABLES - DEVICE Final Result Performing Organization Address [facility] Co de Phone Number DAYANA [address] [address] * (ABNORMAL) POCT glucose (11/17/2024 6:05 PM ASSISTANT READING TEACHER) Pathologist [facility] Glucose, POC 280(H) 70 - 199 mg/dL Comment:Testing performed by : [address] [address] Glucose comment 1 Use This Result DAYANA CARPIO Comment:Testing performed by : [address] [address] Glucose comment 2 RN/MD Notified DAYANA CARPIO Comment:Testing performed by : [address] [address] Blood 11/17/2024 6:05 PM ASSISTANT READING TEACHER 11/17/2024 6:05 PM ASSISTANT READING TEACHER Ivan Vargas MD LAB POCT ORDERABLES - DEVICE Final Result Performing Organization Address [facility] Co de Phone Number DAYANA [address] [address] * (ABNORMAL) POCT glucose (11/17/2024 1:08 PM ASSISTANT READING TEACHER) Glucose, POC 236(H) 70 - 199 mg/dL Comment:Testing performed by : [facility], [address] [place] [address]., [address] Glucose comment 1 Use This Result DAYANA Comment:Testing performed by : [address] [address] Glucose comment 2 RN/MD Notified DAYANA Comment:Testing performed by : [facility], [address] [place] [address]., [id number] Blood 11/17/2024 1:08 PM ASSISTANT READING TEACHER 11/17/2024 1:08 PM ASSISTANT READING TEACHER Ivan Vargas MD LAB POCT ORDERABLES - DEVICE Final Result Performing Organization Address City/[facility] Co de Phone Number DAYANA [address] [place] [address] * POCT glucose (11/17/2024 9:20 AM ASSISTANT READING TEACHER) [facility] Glucose, POC 146 70 - 199 mg/dL Comment:Testing performed by : [facility], [address] [place] [address]., [id number] Glucose comment 1 Use This Result DAYANA Comment:Testing performed by : [address] [address] Glucose comment 2 RN/MD Notified DAYANA Comment:Testing performed by : [address] [address] Blood 11/17/2024 9:20 AM ASSISTANT READING TEACHER 11/17/2024 9:20 AM ASSISTANT READING TEACHER Ivan Vargas MD LAB POCT ORDERABLES - DEVICE Final Result Performing Organization Address City/[facility]/ZIP Co de Phone Number [address] [place] [address] * (ABNORMAL) eGFR (11/17/2024 7:01 AM ASSISTANT READING TEACHER) [facility] eGFR 28(L) >=60 mL/min/1. 73 m2 [...] was last reviewed 2021. Testing performed by: [address] [address] Blood 11/17/2024 7:01 AM ASSISTANT READING TEACHER 11/17/2024 7:33 AM ASSISTANT READING TEACHER Ivan Vargas MD LAB BLOOD ORDERABLES Final Re sult [facility] [address] [facility] [place] [address] * (ABNORMAL) Differential, auto (11/17/2024 7:01 AM ASSISTANT READING TEACHER) Neutrophil abs 3.8 1.5 - 6.5 K/cumm Comment:Testing performed by : [address] [address] Imm gran abs 0.1 0.0 - 0.1 K/cumm DAYANA Comment:Testing performed by : [address] [address] Lymphocyte abs 0.8 0.8 - 3.3 K/cumm DAYANA Comment:Testing performed by : [address] [address] Monocyte abs 1.0(H) 0.2 - 0.8 K/cumm DAYANA Comment:Testing performed by : [address] [address] Eosinophil abs 0.7(H) 0.0 - 0.5 K/cumm [facility] Comment:Testing performed by : [address] [address] Basophil abs 0.1 0.0 - 0.1 K/cumm [facility] Comment:Testing performed by : [address] [address] Neutrophil pct 58.2 % [facility] Comment: Interpretive Data Percent cell count reference ranges are not reported, since discordance with absolute values may lead to misinterpretation of CBC data. Current Interpretive Data was last revised on 2018. Testing performed by: [address] [address] Imm gran pct 0.9 % [facility] Comment: Interpretive Data Percent cell count reference ranges are not reported, since discordance with absolute values may lead to misinterpretation of CBC data. Current Interpretive Data was last revised on 2018. Testing performed by: [address] [address] Lymphocyte pct 12.4 % [facility] Comment: Interpretive Data Percent cell count reference ranges are not reported, since discordance with absolute values may lead to misinterpretation of CBC data. Current Interpretive Data was last revised on 2018. Testing performed by: [address] [address] Monocyte pct 15.8 % [facility] Comment: Interpretive Data Percent cell count reference ranges are not reported, since discordance with absolute values may lead to misinterpretation of CBC data. Current Interpretive Data was last revised on 2018. Testing performed by: [address] [address] Eosinophil pct 11.5 % [facility] Comment: Interpretive Data Percent cell count reference ranges are not reported, since discordance with absolute values may lead to misinterpretation of CBC data. Current Interpretive Data was last revised on 2018. Testing performed by: [address] [address] Basophil pct 1.2 % [facility] Comment: Interpretive Data Percent cell count reference ranges are not reported, since discordance with absolute values may lead to misinterpretation of CBC data. Current Interpretive Data was last revised on 2018. Testing performed by: [address] [address] Blood 11/17/2024 7:01 AM ASSISTANT READING TEACHER 11/17/2024 7:34 AM ASSISTANT READING TEACHER us Ivan Vargas MD LAB BLOOD ORDERABLES Final Re sult [facility] [address] [facility] [place] [address] * (ABNORMAL) CBC with auto differential (11/17/2024 7:01 AM ASSISTANT READING TEACHER) WBC 6.5 3.8 - 9.9 K/cumm Comment:Testing performed by : [address] [address] Hgb 8.9(L) 11.9 - 15.5 g/dL DAYANA Comment:Testing performed by : [address] [address] Hct 27.6(L) 35.6 - 45.5 % DAYANA Comment:Testing performed by : [address] [address] Plt 227 150 - 400 K/cumm DAYANA Comment:Testing performed by : [address] [address] MPV 11.2 9.1 - 12.3 fL DAYANA Comment:Testing performed by : [address] [address] RBC 2.70(L) 3.90 - 5.20 M/cumm DAYANA Comment:Testing performed by : [address] [address] MCV 102.2(H) 81.3 - 96.4 fL DAYANA Comment:Testing performed by : [address] [address] MCH 33.0 27.1 - 33.3 pg DAYANA Comment:Testing performed by : [address] [address] MCHC 32.2(L) 32.3 - 35.7 g/dL DAYANA CARPIO Comment:Testing performed by : [address] [address] RDW CV 16.6(H) 11.1 - 14.9 % DAYANA CARPIO Comment:Testing performed by : [address] [address] RDW SD 60.4(H) 35.7 - 48.1 fL DAYANA CARPIO Comment:Testing performed by : [address] [address] NRBC abs 0.00 0.00 - 0.01 K/cumm DAYANA CARPIO Comment:Testing performed by : [address] [address] Blood 11/17/2024 7:01 AM ASSISTANT READING TEACHER 11/17/2024 7:34 AM ASSISTANT READING TEACHER Ivan Vargas MD LAB BLOOD ORDERABLES Final Re sult DAYANA [facility] [place] [address] * (ABNORMAL) Comprehensive metabolic panel (11/17/2024 7:01 AM ASSISTANT READING TEACHER) Sodium 135 135 - 145 mmol/L Comment:Testing performed by : [address] [address] Potassium, pl 3.3 3.3 - 4.9 mmol/L DAYANA CARPIO Comment:Testing performed by : [address] [address] Chloride 92(L) 97 - 110 mmol/L DAYANA CARPIO Comment:Testing performed by : [address] [address] CO2 29 22 - 32 mmol/L DAYANA CARPIO Comment:Testing performed by : [address] [address] Anion gap 14 2 - 15 mmol/L DAYANA CARPIO Comment:Testing performed by : [address] [address] BUN 40(H) 6 - 25 mg/dL DAYANA Comment:Testing performed by : [address] [address] Creatinine 1.90(H) 0.60 - 1.10 mg/dL DAYANA Comment:Testing performed by : [address] [address] Glucose 146 70 - 199 mg/dL DAYANA [...] was last revised 2022. Testing performed by: [address] [address] Calcium 9.3 8.5 - 10.3 mg/dL [facility] Comment:Testing performed by : [address] [address] Bilirubin, total 1.6(H) 0.1 - 1.2 mg/dL [facility] Comment:Testing performed by : [address] [address] Protein, pl 6.1(L) 6.5 - 8.5 g/dL DAYANA Comment:Testing performed by : [address] [address] Albumin 3.8 3.5 - 5.0 g/dL [facility] Comment:Testing performed by : [address] [address] Alk phos 309(H) 40 - 130 Units/L DAYANA Comment:Testing performed by : [address] [address] ALT 14 7 - 45 Units/L DAYANA Comment:Testing performed by : [address] [address] AST 32 10 - 45 Units/L DAYANA Comment:Testing performed by : [address] [address] Blood 11/17/2024 7:01 AM ASSISTANT READING TEACHER 11/17/2024 7:33 AM ASSISTANT READING TEACHER Ivan Vargas MD LAB BLOOD ORDERABLES Final Re sult Performing Organization Address [facility] de Phone Number MARY ALICE[address] [address] * (ABNORMAL) POCT glucose (11/16/2024 7:44 PM ASSISTANT READING TEACHER) Glucose, POC 205(H) 70 - 199 mg/dL Comment:Testing performed by : [address] [address] Glucose comment 1 Use This Result DAYANA Comment:Testing performed by : [address], [address] Glucose comment 2 RN/MD Notified DAYANA Comment:Testing performed by : [address] [address] Blood 11/16/2024 7:44 PM ASSISTANT READING TEACHER 11/16/2024 7:44 PM ASSISTANT READING TEACHER Ivan Vargas MD LAB POCT ORDERABLES - DEVICE Final Result Performing Organization Address [facility] de Phone Number [address] [address] * POCT glucose (11/16/2024 6:33 PM ASSISTANT READING TEACHER) Glucose, POC 155 70 - 199 mg/dL Comment:Testing performed by : [address] [address] Glucose comment 1 Use This Result DAYANA Comment:Testing performed by : [address] [address] Glucose comment 2 RN/MD Notified DAYANA Comment:Testing performed by : [address] [address] Blood 11/16/2024 6:33 PM ASSISTANT READING TEACHER 11/16/2024 6:33 PM ASSISTANT READING TEACHER Ivan Vargas MD LAB POCT ORDERABLES - DEVICE Final Result Performing Organization Address City/[facility]/ZIP Co de Phone Number DAYANA [address] [facility] [place] [address] * (ABNORMAL) POCT glucose (11/16/2024 11:54 AM ASSISTANT READING TEACHER) Glucose, POC 203(H) 70 - 199 mg/dL Comment:Testing performed by : [address] [address] Glucose comment 1 Use This Result DAYANA CARPIO Comment:Testing performed by : [address] [address] Glucose comment 2 RN/MD Notified DAYANA CRAPIO Comment:Testing performed by : [address] [address] Blood 11/16/2024 11:5 4 AM ASSISTANT READING TEACHER 11/16/2024 11:54 AM ASSISTANT READING TEACHER Ivan Vargas MD LAB POCT ORDERABLES - DEVICE Final Result Performing Organization Address City/[facility]/ZIP Co de Phone Number DAYANA [facility] [place] [address] * (ABNORMAL) eGFR (11/16/2024 9:56 AM ASSISTANT READING TEACHER) eGFR 26(L) >=60 mL/min/1. 73 m2 Comment: [...] was last reviewed 2021. Testing performed by: [address] [address] Blood 11/16/2024 9:56 AM ASSISTANT READING TEACHER 11/16/2024 10:30 AM ASSISTANT READING TEACHER us Ivan Vargas MD LAB BLOOD ORDERABLES Final Re sult DAYANA [facility] [facility] [place], [place] [id number] * (ABNORMAL) Differential, auto (11/16/2024 9:56 AM ASSISTANT READING TEACHER) Neutrophil abs 4.2 1.5 - 6.5 K/cumm Comment:Testing performed by : [address] [address] Imm gran abs 0.1 0.0 - 0.1 K/cumm DAYANA Comment:Testing performed by : [address] [address] Lymphocyte abs 0.5(L) 0.8 - 3.3 K/cumm DAYANA Comment:Testing performed by : [address] [address] Monocyte abs 0.8 0.2 - 0.8 K/cumm DAYANA Comment:Testing performed by : [address] [address] Eosinophil abs 0.6(H) 0.0 - 0.5 K/cumm DAYANA Comment:Testing performed by : [address] [address] Basophil abs 0.1 0.0 - 0.1 K/cumm DAYANA Comment:Testing performed by : [address] [address] Neutrophil pct 67.6 % [facility] Comment: Interpretive Data Percent cell count reference ranges are not reported, since discordance with absolute values may lead to misinterpretation of CBC data. Current Interpretive Data was last revised on 2018. Testing performed by: [address] [address] Imm gran pct 1.0 % DAYANA Comment: Interpretive Data Percent cell count reference ranges are not reported, since discordance with absolute values may lead to misinterpretation of CBC data. Current Interpretive Data was last revised on 2018. Testing performed by: [address] [address] Lymphocyte pct 8.2 % [facility] Comment: Interpretive Data Percent cell count reference ranges are not reported, since discordance with absolute values may lead to misinterpretation of CBC data. Current Interpretive Data was last revised on 2018. Testing performed by: [address] [address] Monocyte pct 12.5 % [facility] Comment: Interpretive Data Percent cell count reference ranges are not reported, since discordance with absolute values may lead to misinterpretation of CBC data. Current Interpretive Data was last revised on 2018. Testing performed by: [address] [address] Eosinophil pct 9.6 % [facility] Comment: Interpretive Data Percent cell count reference ranges are not reported, since discordance with absolute values may lead to misinterpretation of CBC data. Current Interpretive Data was last revised on 2018. Testing performed by: [address] [address] Basophil pct 1.1 % [facility] Comment: Interpretive Data Percent cell count reference ranges are not reported, since discordance with absolute values may lead to misinterpretation of CBC data. Current Interpretive Data was last revised on 2018. Testing performed by: [address] [address] Blood 11/16/2024 9:56 AM ASSISTANT READING TEACHER 11/16/2024 10:29 AM ASSISTANT READING TEACHER us Ivan Vargas MD LAB BLOOD ORDERABLES Final Re sult DAYANA [address] [facility] [place] [address] * (ABNORMAL) CBC with auto differential (11/16/2024 9:56 AM ASSISTANT READING TEACHER) WBC 6.2 3.8 - 9.9 K/cumm Comment:Testing performed by : [address] [address] Hgb 8.4(L) 11.9 - 15.5 g/dL DAYANA Comment:Testing performed by : [address] [address] Hct 26.7(L) 35.6 - 45.5 % DAYANA Comment:Testing performed by : [address] [address] Plt 216 150 - 400 K/cumm DAYANA Comment:Testing performed by : [address] [address] MPV 11.1 9.1 - 12.3 fL DAYANA Comment:Testing performed by : [address] [address] RBC 2.60(L) 3.90 - 5.20 M/cumm DAYANA Comment:Testing performed by : [address] [address] MCV 102.7(H) 81.3 - 96.4 fL DAYANA Comment:Testing performed by : [address] [address] MCH 32.3 27.1 - 33.3 pg DAYANA Comment:Testing performed by : [address] [address] MCHC 31.5(L) 32.3 - 35.7 g/dL DAYANA Comment:Testing performed by : [address] [address] RDW CV 16.6(H) 11.1 - 14.9 % DAYANA CARPIO Comment:Testing performed by : [address] [address] RDW SD 61.2(H) 35.7 - 48.1 fL DAYANA CARPIO Comment:Testing performed by : [address] [address] NRBC abs 0.00 0.00 - 0.01 K/cumm DAYANA CARPIO Comment:Testing performed by : [address] [address] Blood 11/16/2024 9:56 AM ASSISTANT READING TEACHER 11/16/2024 10:29 AM ASSISTANT READING TEACHER Ivan Vargas MD LAB BLOOD ORDERABLES Final Re sult Performing Organization Address [facility] de Phone Number [place] [phone] [facility] [place] [address] * Hemoglobin A1c (11/16/2024 9:56 AM ASSISTANT READING TEACHER) [facility] Hgb A1C 5.4 4.0 - 5.6 % Comment:Testing performed by : [address] [address] Estimated Average Glucose 108 mg/dL DAYANA CARPIO Comment: The ADA recommends reporting an estimated Average Glucose (eAG) with all Hemoglobin A1c results using the equation derived from a study of 507 normal and diabetic adults. Minority populations were underrepresented and children were not included. (Diabetes Care 31:5372-9778, 2008). The eAG is not equivalent to a fasting glucose. Testing performed by: [address] [address] Blood 11/16/2024 9:56 AM ASSISTANT READING TEACHER 11/16/2024 10:29 AM ASSISTANT READING TEACHER us Ivan Vargas MD LAB BLOOD ORDERABLES Final Re sult Performing Organization Address [facility] Co de Phone Number [place] [phone] [facility] [place] [address] * (ABNORMAL) Comprehensive metabolic panel (11/16/2024 9:56 AM ASSISTANT READING TEACHER) Sodium 133(L) 135 - 145 mmol/L Comment:Testing performed by : [address] [address] Potassium, pl 3.1(L) 3.3 - 4.9 mmol/L DAYANA Comment:Testing performed by : [address] [address] Chloride 92(L) 97 - 110 mmol/L [facility] Comment:Testing performed by : [address] [address] CO2 27 22 - 32 mmol/L [facility] Comment:Testing performed by : [address] [address] Anion gap 14 2 - 15 mmol/L [facility] Comment:Testing performed by : [address] [address] BUN 39(H) 6 - 25 mg/dL [facility] Comment:Testing performed by : [address] [address] Creatinine 2.04(H) 0.60 - 1.10 mg/dL [facility] Comment:Testing performed by : [address] [address] Glucose 136 70 - 199 mg/dL [facility] Comment: Interpretive Data Fasting glucose >/= 126 [...] was last revised 2022. Testing performed by: [address] [address] Calcium 8.9 8.5 - 10.3 mg/dL [facility] Comment:Testing performed by : [address] [address] Bilirubin, total 1.7(H) 0.1 - 1.2 mg/dL DAYANA Comment:Testing performed by : [address] [address] Protein, pl 6.6 6.5 - 8.5 g/dL DAYANA Comment:Testing performed by : [address], [place]., [address] Albumin 4.2 3.5 - 5.0 g/dL DAYANA Comment:Testing performed by : [address], [place]., [address] Alk phos 247(H) 40 - 130 Units/L DAYANA Comment:Testing performed by : [address] [address] ALT 12 7 - 45 Units/L DAYANA Comment:Testing performed by : [address] [address] AST 30 10 - 45 Units/L DAYANA Comment:Testing performed by : [address] [address] Blood 11/16/2024 9:56 AM ASSISTANT READING TEACHER 11/16/2024 10:30 AM ASSISTANT READING TEACHER Ivan Vargas MD LAB BLOOD ORDERABLES Final Re sult DAYANA [address] [facility] [place], [place] [id number] * POCT glucose (11/16/2024 8:53 AM ASSISTANT READING TEACHER) [facility] Glucose, POC 146 70 - 199 mg/dL Comment:Testing performed by : [address] [address] Glucose comment 1 Use This Result DAYANA Comment:Testing performed by : [address] [address] Glucose comment 2 RN/MD Notified DAYANA Comment:Testing performed by : [address] [address] Blood 11/16/2024 8:53 AM ASSISTANT READING TEACHER 11/16/2024 8:53 AM ASSISTANT READING TEACHER Ivan Vargas MD LAB POCT ORDERABLES - DEVICE Final Result Performing Organization Address [facility] de Phone Number DAYANA [address] [address] * POCT glucose (11/16/2024 12:30 AM ASSISTANT READING TEACHER) Glucose, POC 156 70 - 199 mg/dL Comment:Testing performed by : [facility], [address] [place] [address]., [address] Glucose comment 1 Use This Result DAYANA Comment:Testing performed by : [address] [address] Glucose comment 2 RN/MD Notified DAYANA Comment:Testing performed by : [address] [address] Blood 11/16/2024 12:3 0 AM ASSISTANT READING TEACHER 11/16/2024 12:30 AM ASSISTANT READING TEACHER Ivan Vargas MD LAB POCT ORDERABLES - DEVICE Final Result Performing Organization Address [facility] Co de Phone Number DAYANA [address] [address] * POCT glucose (11/15/2024 8:35 PM ASSISTANT READING TEACHER) Glucose, POC 196 70 - 199 mg/dL Comment:Testing performed by : [address] [address] Glucose comment 1 Use This Result DAYANA Comment:Testing performed by : [address] [address] Glucose comment 2 RN/MD Notified DAYANA Comment:Testing performed by : [address] [address] Blood 11/15/2024 8:35 PM ASSISTANT READING TEACHER 11/15/2024 8:35 PM ASSISTANT READING TEACHER us Ivan Vargas MD LAB POCT ORDERABLES - DEVICE Final Result Performing Organization Address City/[facility]/ZIP Co de Phone Number DAYANA [address] [place] [employer] [address] * POCT glucose (11/15/2024 5:29 PM ASSISTANT READING TEACHER) Glucose, POC 152 70 - 199 mg/dL Comment:Testing performed by : [address] [address] Blood 11/15/2024 5:29 PM ASSISTANT READING TEACHER 11/15/2024 5:29 PM ASSISTANT READING TEACHER us Ivan Vargas MD LAB POCT ORDERABLES - DEVICE Final Result Performing Organization Address City/[facility] Co de Phone Number DAYANA [address] [place] [employer] [place] [address] * POCT glucose (11/15/2024 1:28 PM ASSISTANT READING TEACHER) Glucose, POC 154 70 - 199 mg/dL Comment:Testing performed by : [address] [address] Blood 11/15/2024 1:28 PM ASSISTANT READING TEACHER 11/15/2024 1:28 PM ASSISTANT READING TEACHER us Ivan Vargas MD LAB POCT ORDERABLES - DEVICE Final Result Performing Organization Address City/[facility]/ZIP Co de Phone Number DAYANA [address] [place] [employer] [place] [address] * POCT glucose (11/15/2024 8:56 AM ASSISTANT READING TEACHER) Glucose, POC 130 70 - 199 mg/dL Comment:Testing performed by : [address] [address] Blood 11/15/2024 8:56 AM ASSISTANT READING TEACHER 11/15/2024 8:56 AM ASSISTANT READING TEACHER us Ivan Vargas MD LAB POCT ORDERABLES - DEVICE Final Result Performing Organization Address [facility] de Phone Number DAYANA [facility] [place] [address] * (ABNORMAL) eGFR (11/15/2024 4:35 AM ASSISTANT READING TEACHER) Pathologist [facility] eGFR 24(L) >=60 mL/min/1. 73 m2 Comment: [...] was last reviewed 2021. Testing performed by: [address] [address] Blood 11/15/2024 4:35 AM ASSISTANT READING TEACHER 11/15/2024 6:10 AM ASSISTANT READING TEACHER us Ivan Vargas MD LAB BLOOD ORDERABLES Final Re sult Performing Organization Address [facility] Co de Phone Number DAYANA [facility] [place] [address] * (ABNORMAL) Differential, auto (11/15/2024 4:35 AM ASSISTANT READING TEACHER) Pathologist [facility] Neutrophil abs 5.0 1.5 - 6.5 K/cumm Comment:Testing performed by : [address] [address] Imm gran abs 0.1 0.0 - 0.1 K/cumm DAYANA Comment:Testing performed by : [address] [address] Lymphocyte abs 0.7(L) 0.8 - 3.3 K/cumm DAYANA Comment:Testing performed by : [address] [address] Monocyte abs 1.0(H) 0.2 - 0.8 K/cumm DAYANA Comment:Testing performed by : [address] [address] Eosinophil abs 0.6(H) 0.0 - 0.5 K/cumm DAYANA Comment:Testing performed by : [address] [address] Basophil abs 0.1 0.0 - 0.1 K/cumm DAYANA Comment:Testing performed by : [address] [address] Neutrophil pct 67.6 % [facility] Comment: Interpretive Data Percent cell count reference ranges are not reported, since discordance with absolute values may lead to misinterpretation of CBC data. Current Interpretive Data was last revised on 2018. Testing performed by: [address] [address] Imm gran pct 0.8 % DAY[facility] Comment: Interpretive Data Percent cell count reference ranges are not reported, since discordance with absolute values may lead to misinterpretation of CBC data. Current Interpretive Data was last revised on 2018. Testing performed by: [address] [address] Lymphocyte pct 8.8 % DAY[facility] Comment: Interpretive Data Percent cell count reference ranges are not reported, since discordance with absolute values may lead to misinterpretation of CBC data. Current Interpretive Data was last revised on 2018. Testing performed by: [address] [address] Monocyte pct 13.0 % DAY[facility] Comment: Interpretive Data Percent cell count reference ranges are not reported, since discordance with absolute values may lead to misinterpretation of CBC data. Current Interpretive Data was last revised on 2018. Testing performed by: [address] [address] Eosinophil pct 8.7 % [facility] Comment: Interpretive Data Percent cell count reference ranges are not reported, since discordance with absolute values may lead to misinterpretation of CBC data. Current Interpretive Data was last revised on 2018. Testing performed by: [address] [address] Basophil pct 1.1 % DAYANA CARPIO Comment: Interpretive Data Percent cell count reference ranges are not reported, since discordance with absolute values may lead to misinterpretation of CBC data. Current Interpretive Data was last revised on 2018. Testing performed by: [address] [address] Blood 11/15/2024 4:35 AM ASSISTANT READING TEACHER 11/15/2024 6:15 AM ASSISTANT READING TEACHER us Ivan Vargas MD LAB BLOOD ORDERABLES Final Re sult DAYANA [address] [facility] [place] [address] * (ABNORMAL) CBC with auto differential (11/15/2024 4:35 AM ASSISTANT READING TEACHER) WBC 7.4 3.8 - 9.9 K/cumm Comment:Testing performed by : [address] [address] Hgb 8.6(L) 11.9 - 15.5 g/dL DAYANA CARPIO Comment:Testing performed by : [address] [address] Hct 26.5(L) 35.6 - 45.5 % DAYANA Comment:Testing performed by : [address] [address] Plt 238 150 - 400 K/cumm DAYANA CARPIO Comment:Testing performed by : [address] [address] MPV 11.0 9.1 - 12.3 fL DAYANA CARPIO Comment:Testing performed by : [address] [address] RBC 2.59(L) 3.90 - 5.20 M/cumm DAYANA Comment:Testing performed by : [address] [address] MCV 102.3(H) 81.3 - 96.4 fL DAYANA Comment:Testing performed by : [address] [address] MCH 33.2 27.1 - 33.3 pg DAYANA Comment:Testing performed by : [address] [address] MCHC 32.5 32.3 - 35.7 g/dL DAYANA Comment:Testing performed by : [address], [address] RDW CV 16.4(H) 11.1 - 14.9 % DAYANA Comment:Testing performed by : [address], [address] RDW SD 60.1(H) 35.7 - 48.1 fL DAYANA Comment:Testing performed by : [address] [address] NRBC abs 0.00 0.00 - 0.01 K/cumm DAYANA Comment:Testing performed by : [address] [address] Blood 11/15/2024 4:35 AM ASSISTANT READING TEACHER 11/15/2024 6:15 AM ASSISTANT READING TEACHER us Ivan Vargas MD LAB BLOOD ORDERABLES Final Re sult DAYANA [address] [facility] Department of Laboratories [place], [place] [id number] * (ABNORMAL) Protime-INR (11/15/2024 4:35 AM ASSISTANT READING TEACHER) PT 16.8(H) 12.0 - 14.6 sec Comment: Ref Range High Testing performed by: [address], [address] INR 1.4(H) 0.9 - 1.2 DAYANA Comment: Ref Range High Interpretive data Oral anticoagulant therapeutic ranges: Venous thromboembolism prophylaxis or treatment: 2.0-3.0 CARDIOLOGY Standard range: 2.0-3.0 High-intensity range: 2.5-3.5 Refer to indication-specific guidelines for appropriate target ranges for prosthetic heart valve replacement. Current interpretive data was last revised on 2019. Testing performed by: [address] [address] Blood 11/15/2024 4:35 AM ASSISTANT READING TEACHER 11/15/2024 6:10 AM ASSISTANT READING TEACHER Bravo Mckenzie MD LAB BLOOD ORDERABLES Final Re sult Performing Organization Address City/[facility] Co de Phone Number [address] [place] [employer] [place] [address] * Magnesium (11/15/2024 4:35 AM ASSISTANT READING TEACHER) Pathologist [facility] Magnesium 1.7 1.4 - 2.5 mg/dL Comment:Testing performed by : [address] [address] Blood 11/15/2024 4:35 AM ASSISTANT READING TEACHER 11/15/2024 6:10 AM ASSISTANT READING TEACHER Ivan Vargas MD LAB BLOOD ORDERABLES Final Re sult Performing Organization Address [facility] Co de Phone Number [address] [address] * (ABNORMAL) Comprehensive metabolic panel (11/15/2024 4:35 AM ASSISTANT READING TEACHER) Sodium 135 135 - 145 mmol/L Comment:Testing performed by : [address] [address] Potassium, pl 3.1(L) 3.3 - 4.9 mmol/L DAYANA Comment:Testing performed by : [address] [address] Chloride 89(L) 97 - 110 mmol/L DAYANA Comment:Testing performed by : [address] [address] CO2 27 22 - 32 mmol/L DAYANA Comment:Testing performed by : [address] [address] Anion gap 19(H) 2 - 15 mmol/L DAYANA Comment:Testing performed by : [address] [address] BUN 37(H) 6 - 25 mg/dL DAYANA Comment:Testing performed by : [address] [address] Creatinine 2.20(H) 0.60 - 1.10 mg/dL [facility] Comment:Testing performed by : [address] [address] Glucose 103 70 - 199 mg/dL [facility] Comment: Interpretive Data Fasting glucose >/= 126 [...] was last revised 2022. Testing performed by: [address] [address] Calcium 8.4(L) 8.5 - 10.3 mg/dL DAYANA Comment:Testing performed by : [address] [address] Bilirubin, total 1.6(H) 0.1 - 1.2 mg/dL [facility] Comment:Testing performed by : [address] [address] Protein, pl 6.1(L) 6.5 - 8.5 g/dL DAYANA Comment:Testing performed by : [address] [address] Albumin 3.7 3.5 - 5.0 g/dL DAYANA Comment:Testing performed by : [address] [address] Alk phos 267(H) 40 - 130 Units/L DAYANA CARPIO Comment:Testing performed by : [address] [address] ALT 14 7 - 45 Units/L DAYANA CARPIO Comment:Testing performed by : [address], [address] AST 30 10 - 45 Units/L DAYANA CARPIO Comment:Testing performed by : [address] [address] Blood 11/15/2024 4:35 AM ASSISTANT READING TEACHER 11/15/2024 6:10 AM ASSISTANT READING TEACHER Ivan Vargas MD LAB BLOOD ORDERABLES Final Re sult Performing Organization Address [facility] Co de Phone Number MARY ALICE[address] [place] [address] * POCT glucose (11/14/2024 9:28 PM ASSISTANT READING TEACHER) Glucose, POC 138 70 - 199 mg/dL Comment:Testing performed by : [address] [address] Glucose comment 1 Use This Result DAYANA CARPIO Comment:Testing performed by : [address] [address] Glucose comment 2 RN/MD Notified DAYANA Comment:Testing performed by : [address] [address] Blood 11/14/2024 9:28 PM ASSISTANT READING TEACHER 11/14/2024 9:28 PM ASSISTANT READING TEACHER Ivan Vargas MD LAB POCT ORDERABLES - DEVICE Final Result [address] [place] [employer] [place] [address] * POCT glucose (11/14/2024 5:48 PM ASSISTANT READING TEACHER) Glucose, POC 120 70 - 199 mg/dL Comment:Testing performed by : [address] [address] Glucose comment 1 Use This Result DAYANA CARPIO Comment:Testing performed by : [address] [address] Glucose comment 2 RN/MD Notified DAYANA CARPIO Comment:Testing performed by : [address] [address] Blood 11/14/2024 5:48 PM ASSISTANT READING TEACHER 11/14/2024 5:48 PM ASSISTANT READING TEACHER Ivan Vargas MD LAB POCT ORDERABLES - DEVICE Final Result Performing Organization Address [facility] Co de Phone Number MARY ALICE[address] [place] [place] [address] * Sodium, urine, random (11/14/2024 3:29 PM ASSISTANT READING TEACHER) Sodium, ur 42 mmol/L Comment: Interpretive Data No reference range established. Current interpretive data was last revised 2019. Urine 11/14/2024 3:29 PM ASSISTANT READING TEACHER 11/14/2024 6:41 PM ASSISTANT READING TEACHER Bravo Mckenzie MD LAB URINE ORDERABLES Final Re sult Performing Organization Address [facility] Co de Phone Number [address] [address] * (ABNORMAL) Urinalysis reflex to microscopic and culture Urine, clean voided (11/14/2024 3:28 PM ASSISTANT READING TEACHER) Color, ur Yellow Yellow Comment:Testing performed by : [address] [address] Clarity, ur Clear Clear DAYANA CARPIO Comment:Testing performed by : [address] [address] Specific gravity, ur 1.018 1.003 - 1.030 DAYANA CARPIO Comment:Testing performed by : [address] [address] pH, urine 5.5 DAYANA Comment: Interpretive Data U rine pH is affected by diet, medications, systemic acid-base disturbances, and renal tubular function. pH may affect urinary stone formation. For example, urine pH below 6.0 may help reduce the tendency for calcium phosphate stones and pH greater than 6.0 may reduce the tendency for uric acid stone formation. Source: [facility] [employer] Current Interpretive Data was last revised on 2017 Testing performed by: [facility], [address] [place] [address], [place]., [address] Protein, ur ql Negative Negative DAYANA Comment:Testing performed by : [facility], [address] [place] [address], [place]., [address] Glucose, ur ql 1+(A) Negative DAYANA Comment:Testing performed by : [address], [place]., [address] Ketones, ur Negative Negative DAYANA Comment:Testing performed by : [address], [place]., [address] Bilirubin, ur Negative Negative DAYANA Comment:Testing performed by : [address], [place]., [address] Blood, ur Negative Negative DAYANA Comment:Testing performed by : [address], [place]., [address] Urobilinogen, ur <2.0 <2.0 mg/dL DAYANA Comment:Testing performed by : [address], [place]., [address] Nitrite, ur Negative Negative DAYANA Comment:Testing performed by : [address], [place]., [address] Leukocyte esterase, ur Negative Negative DAYANA Comment:Testing performed by : [address], [place]., [address] UA reflex comment Reflex conditions for microscopic UA and culture not met. DAYANA Comment:Testing performed by : [address], [place]., [address] Urine, clean voided 11/14/2024 3:28 PM ASSISTANT READING TEACHER 11/14/2024 3:49 PM ASSISTANT READING TEACHER us Ivan Vargas MD LAB MICROBIOLOGY - GENERAL OR DERABLES Final Result Performing Organization Address [facility] Co de Phone Number DAYANA [address] [address] * Ammonia (11/14/2024 2:16 PM ASSISTANT READING TEACHER) Ammonia 34 <=50 mcmol/L Comment: Please note on 02/21/2024 the unit of measure changed from mcg/dL to mcmol/L. Current Interpretive Data was last revised on 2024 Testing performed by: [address] [address] Blood 11/14/2024 2:16 PM ASSISTANT READING TEACHER 11/14/2024 2:22 PM ASSISTANT READING TEACHER Ivan Vargas MD LAB BLOOD ORDERABLES Final Re sult Performing Organization Address [facility] Co de Phone Number DAYANA [address] [address] * POCT glucose (11/14/2024 11:21 AM ASSISTANT READING TEACHER) Glucose, POC 129 70 - 199 mg/dL Comment:Testing performed by : [address] [address] Glucose comment 1 Use This Result DAYANA CARPIO Comment:Testing performed by : [address] [address] Glucose comment 2 RN/MD Notified DAYANA Comment:Testing performed by : [address] [address] Blood 11/14/2024 11:2 1 AM ASSISTANT READING TEACHER 11/14/2024 11:21 AM ASSISTANT READING TEACHER Ivan Vargas MD LAB POCT ORDERABLES - DEVICE Final Result Performing Organization Address [facility] Co de Phone Number DAYANA [address] [address] * POCT glucose (11/14/2024 8:11 AM ASSISTANT READING TEACHER) Pathologist [facility] Glucose, POC 107 70 - 199 mg/dL Comment:Testing performed by : [facility], [address] [place] [address]., [address] Glucose comment 1 Use This Result DAYANA CARPIO Comment:Testing performed by : [facility], [address] [place] [address]., [address] Blood 11/14/2024 8:11 AM ASSISTANT READING TEACHER 11/14/2024 8:11 AM ASSISTANT READING TEACHER us Ivan Vargas MD LAB POCT ORDERABLES - DEVICE Final Result DAYANA CARPIO [address] [facility] [place] [address] * (ABNORMAL) eGFR (11/14/2024 5:03 AM ASSISTANT READING TEACHER) [facility] eGFR 24(L) >=60 mL/min/1. 73 m2 [...] was last reviewed 2021. Testing performed by: [address] [address] Blood 11/14/2024 5:03 AM ASSISTANT READING TEACHER 11/14/2024 5:33 AM ASSISTANT READING TEACHER Ivan Vargas MD LAB BLOOD ORDERABLES Final Re sult DAYANA [address] [facility] [place] [address] * (ABNORMAL) Differential, auto (11/14/2024 5:03 AM ASSISTANT READING TEACHER) Neutrophil abs 4.8 1.5 - 6.5 K/cumm Comment:Testing performed by : [address] [address] Imm gran abs 0.0 0.0 - 0.1 K/cumm DAYANA Comment:Testing performed by : [address] [address] Lymphocyte abs 0.7(L) 0.8 - 3.3 K/cumm DAYANA Comment:Testing performed by : [address] [address] Monocyte abs 1.0(H) 0.2 - 0.8 K/cumm DAYANA Comment:Testing performed by : [address] [address] Eosinophil abs 0.7(H) 0.0 - 0.5 K/cumm DAYANA Comment:Testing performed by : [address] [address] Basophil abs 0.1 0.0 - 0.1 K/cumm DAYANA Comment:Testing performed by : [address] [address] Neutrophil pct 65.6 % DAYANA Comment: Interpretive Data Percent cell count reference ranges are not reported, since discordance with absolute values may lead to misinterpretation of CBC data. Current Interpretive Data was last revised on 2018. Testing performed by: [address] [address] Imm gran pct 0.4 % DAYANA Comment: Interpretive Data Percent cell count reference ranges are not reported, since discordance with absolute values may lead to misinterpretation of CBC data. Current Interpretive Data was last revised on 2018. Testing performed by: [address] [address] Lymphocyte pct 10.0 % CERNER Comment: Interpretive Data Percent cell count reference ranges are not reported, since discordance with absolute values may lead to misinterpretation of CBC data. Current Interpretive Data was last revised on 2018. Testing performed by: [address] [address] Monocyte pct 13.4 % DAYANA Comment: Interpretive Data Percent cell count reference ranges are not reported, since discordance with absolute values may lead to misinterpretation of CBC data. Current Interpretive Data was last revised on 2018. Testing performed by: [address] [address] Eosinophil pct 9.4 % DAYANA Comment: Interpretive Data Percent cell count reference ranges are not reported, since discordance with absolute values may lead to misinterpretation of CBC data. Current Interpretive Data was last revised on 2018. Testing performed by: [address] [address] Basophil pct 1.2 % DAYANA Comment: Interpretive Data Percent cell count reference ranges are not reported, since discordance with absolute values may lead to misinterpretation of CBC data. Current Interpretive Data was last revised on 2018. Testing performed by: [address] [address] Blood 11/14/2024 5:03 AM ASSISTANT READING TEACHER 11/14/2024 5:34 AM ASSISTANT READING TEACHER us Ivan Vargas MD LAB BLOOD ORDERABLES Final Re sult [facility] [address] [facility] [place] [address] * (ABNORMAL) CBC with auto differential (11/14/2024 5:03 AM ASSISTANT READING TEACHER) WBC 7.3 3.8 - 9.9 K/cumm Comment:Testing performed by : [address] [address] Hgb 8.5(L) 11.9 - 15.5 g/dL DAYANA Comment:Testing performed by : [address] [address] Hct 26.2(L) 35.6 - 45.5 % DAYANA Comment:Testing performed by : [address] [address] Plt 212 150 - 400 K/cumm DAYANA Comment:Testing performed by : [address] [address] MPV 10.7 9.1 - 12.3 fL DAYANA Comment:Testing performed by : [address], [address] RBC 2.57(L) 3.90 - 5.20 M/cumm DAYANA Comment:Testing performed by : [address] [address] MCV 101.9(H) 81.3 - 96.4 fL DAYANA Comment:Testing performed by : [address], [address] MCH 33.1 27.1 - 33.3 pg DAYANA Comment:Testing performed by : [address], [address] MCHC 32.4 32.3 - 35.7 g/dL DAYANA Comment:Testing performed by : [address], [address] RDW CV 16.8(H) 11.1 - 14.9 % DAYANA Comment:Testing performed by : [address], [address] RDW SD 60.4(H) 35.7 - 48.1 fL DAYANA Comment:Testing performed by : [address], [address] NRBC abs 0.00 0.00 - 0.01 K/cumm DAYANA Comment:Testing performed by : [address], [address] Blood 11/14/2024 5:03 AM ASSISTANT READING TEACHER 11/14/2024 5:34 AM ASSISTANT READING TEACHER Ivan Vargas MD LAB BLOOD ORDERABLES Final Re sult DAYANA [address] [facility] [place] [address] * (ABNORMAL) Comprehensive metabolic panel (11/14/2024 5:03 AM ASSISTANT READING TEACHER) Sodium 135 135 - 145 mmol/L Comment:Testing performed by : [address] [address] Potassium, pl 3.5 3.3 - 4.9 mmol/L DAYANA Comment:Testing performed by : [address] [address] Chloride 91(L) 97 - 110 mmol/L DAYANA Comment:Testing performed by : [address] [address] CO2 28 22 - 32 mmol/L DAYANA Comment:Testing performed by : [address] [address] Anion gap 16(H) 2 - 15 mmol/L DAYANA Comment:Testing performed by : [address] [address] BUN 33(H) 6 - 25 mg/dL DAYANA Comment:Testing performed by : [address] [address] Creatinine 2.20(H) 0.60 - 1.10 mg/dL DAYANA Comment:Testing performed by : [address] [address] Glucose 94 70 - 199 mg/dL DAYANA [...] was last revised 2022. Testing performed by: [address] [place] [address] Calcium 8.3(L) 8.5 - 10.3 mg/dL DAYANA Comment:Testing performed by : [address] [address] Bilirubin, total 1.4(H) 0.1 - 1.2 mg/dL DAYANA Comment:Testing performed by : [address] [address] Protein, pl 6.0(L) 6.5 - 8.5 g/dL DAYANA Comment:Testing performed by : [address] [address] Albumin 3.6 3.5 - 5.0 g/dL DAYANA Comment:Testing performed by : [address] [address] Alk phos 256(H) 40 - 130 Units/L DAYANA Comment:Testing performed by : [address] [address] ALT 17 7 - 45 Units/L DAYANA Comment:Testing performed by : [address] [address] AST 30 10 - 45 Units/L DAYANA Comment:Testing performed by : [address] [address] Blood 11/14/2024 5:03 AM ASSISTANT READING TEACHER 11/14/2024 5:33 AM ASSISTANT READING TEACHER us Ivan Vargas MD LAB BLOOD ORDERABLES Final Re sult MARY ALICENIKOS [address] [facility] Department of Laboratories [place], [place] [id number] * POCT glucose (11/14/2024 4:41 AM ASSISTANT READING TEACHER) [facility] Glucose, POC 121 70 - 199 mg/dL Comment:Testing performed by : [address] [address] Glucose comment 1 Use This Result DAYANA Comment:Testing performed by : [address] [address] Blood 11/14/2024 4:41 AM ASSISTANT READING TEACHER 11/14/2024 4:41 AM ASSISTANT READING TEACHER Ivan Vargas MD LAB POCT ORDERABLES - DEVICE Final Result Performing Organization Address [facility] Co de Phone Number DAYANA [address] [address] * POCT glucose (11/13/2024 7:59 PM ASSISTANT READING TEACHER) Glucose, POC 155 70 - 199 mg/dL Comment:Testing performed by : [address] [address] Glucose comment 1 Use This Result DAYANA Comment:Testing performed by : [address] [address] Blood 11/13/2024 7:59 PM ASSISTANT READING TEACHER 11/13/2024 7:59 PM ASSISTANT READING TEACHER Result [facility] Ivan Vargas MD LAB POCT ORDERABLES - DEVICE Final Result Performing Organization Address [facility] de Phone Number DAYANA [address] [address] * POCT glucose (11/13/2024 5:16 PM ASSISTANT READING TEACHER) Glucose, POC 131 70 - 199 mg/dL Comment:Testing performed by : [address] [address] Glucose comment 1 Use This Result DAYANA Comment:Testing performed by : [address] [address] Glucose comment 2 RN/MD Notified DAYANA Comment:Testing performed by : [address] [address] Blood 11/13/2024 5:16 PM ASSISTANT READING TEACHER 11/13/2024 5:16 PM ASSISTANT READING TEACHER Ivan Vargas MD LAB POCT ORDERABLES - DEVICE Final Result DAYANA MH [address] [facility] [place] [address] * CT Knee Left WO Contrast (11/13/2024 4:52 PM ASSISTANT READING TEACHER) Anatomical Region Laterality Modality Lower Extremities Left Computed Tomog marquis 11/13/2024 5:29 PM ASSISTANT READING TEACHER Narrative 11/13/2024 5:36 PM ASSISTANT READING TEACHER EXAM DESCRIPTION: CT KNEE LEFT WO CONTRAST [...] 5:36 PM - Electronically signed by Ed yN M.D. JA: BETH Report ID: [id number] Reading Location: [id number] Procedure Note Ed Ny MD - 11/13/2024 [...] Ed Ny M.D. JA: BETH Report ID: [id number] Reading Location: [id number] us Ivan Vargas MD IMG CT PROCEDURES Final Resul t * US Chest (11/13/2024 2:21 PM ASSISTANT READING TEACHER) Anatomical Region Laterality Modality Chest N/A Ultrasound 11/13/2024 4:29 PM ASSISTANT READING TEACHER Narrative 11/13/2024 4:32 PM ASSISTANT READING TEACHER EXAM DESCRIPTION: US CHEST REASON FOR STUDY: Right pleural effusion, assess for loculations TECHNIQUE: A Dynamic assessment was performed of the right chest by the glue jointer operator, with selected grayscale images acquired and recorded [...] Will Stahl M.D. MZ: MZ Report ID: [id number] Reading Location: [place] [address] Procedure Note Will Stahl MD - 11/13/2024 EXAM DESCRIPTION: US CHEST REASON FOR STUDY: Right pleural effusion, assess for loculations TECHNIQUE: A Dynamic assessment was performed of the right chest by the glue jointer operator, with selected grayscale images acquired and recorded [...] Will Stahl M.D. MZ: MZ Report ID: [id number] Reading Location: [place] [address] us Ivan Vargas MD IM US PROCEDURES Final Resul t * POCT glucose (11/13/2024 2:13 PM ASSISTANT READING TEACHER) [facility] Signature Glucose, POC 127 70 - 199 mg/dL Comment:Testing performed by : [address] [address] Glucose comment 1 Use This Result DAYANA CARPIO Comment:Testing performed by : [address] [address] Glucose comment 2 RN/MD Notified DAYANA CARPIO Comment:Testing performed by : [address] [address] Blood 11/13/2024 2:13 PM ASSISTANT READING TEACHER 11/13/2024 2:13 PM ASSISTANT READING TEACHER Ivan Vargas MD LAB POCT ORDERABLES - DEVICE Final Result Performing Organization Address City/State/[facility] Co w[place] Phone Number DAYANA [address] [facility] [place] [address] * FL Fluoro Guided Aspiration Knee Left (11/13/2024 1:30 PM ASSISTANT READING TEACHER) Anatomical Region Laterality Modality Knee Left Computed Radiogr aphy, Computed Radiography 11/13/2024 1:57 PM ASSISTANT READING TEACHER Narrative 11/13/2024 2:11 PM ASSISTANT READING TEACHER EXAM DESCRIPTION: FL FLUORO GUIDED ASPIRATION KNEE [...] Kedar Corrales M.D. MM: MM Report ID: [id number] Reading Location: [id number] Procedure Note Kedar Corrales MD - 11/13/2024 [...] Kedar Corrales M.D. MM: MM Report ID: [id number] Reading Location: [id number] Ivan Vargas MD IM FLUOROSCOPY PROCEDURES Fi nal Result * (ABNORMAL) eGFR (11/13/2024 9:02 AM ASSISTANT READING TEACHER) eGFR 34(L) >=60 mL/min/1. 73 m2 Comment: [...] was last reviewed 2021. Testing performed by: [address] [address] Blood 11/13/2024 9:02 AM ASSISTANT READING TEACHER 11/13/2024 10:02 AM ASSISTANT READING TEACHER us Ivan Vargas MD LAB BLOOD ORDERABLES Final Re sult DAYANA [address] [facility] [place] [address] * (ABNORMAL) Differential, auto (11/13/2024 9:02 AM ASSISTANT READING TEACHER) Neutrophil abs 4.3 1.5 - 6.5 K/cumm Comment:Testing performed by : [address] [address] Imm gran abs 0.0 0.0 - 0.1 K/cumm DAYANA Comment:Testing performed by : [address] [address] Lymphocyte abs 0.7(L) 0.8 - 3.3 K/cumm DAYANA Comment:Testing performed by : [address] [address] Monocyte abs 0.9(H) 0.2 - 0.8 K/cumm DAYANA Comment:Testing performed by : [address] [address] Eosinophil abs 0.4 0.0 - 0.5 K/cumm DAYANA Comment:Testing performed by : [address] [address] Basophil abs 0.1 0.0 - 0.1 K/cumm CER[facility]KOS Comment:Testing performed by : [address] [address] Neutrophil pct 66.9 % [facility] Comment: Interpretive Data Percent cell count reference ranges are not reported, since discordance with absolute values may lead to misinterpretation of CBC data. Current Interpretive Data was last revised on 2018. Testing performed by: [address] [address] Imm gran pct 0.6 % [facility] Comment: Interpretive Data Percent cell count reference ranges are not reported, since discordance with absolute values may lead to misinterpretation of CBC data. Current Interpretive Data was last revised on 2018. Testing performed by: [address] [address] Lymphocyte pct 11.6 % [facility] Comment: Interpretive Data Percent cell count reference ranges are not reported, since discordance with absolute values may lead to misinterpretation of CBC data. Current Interpretive Data was last revised on 2018. Testing performed by: [address] [address] Monocyte pct 14.3 % [facility] Comment: Interpretive Data Percent cell count reference ranges are not reported, since discordance with absolute values may lead to misinterpretation of CBC data. Current Interpretive Data was last revised on 2018. Testing performed by: [address] [address] Eosinophil pct 5.5 % [facility] Comment: Interpretive Data Percent cell count reference ranges are not reported, since discordance with absolute values may lead to misinterpretation of CBC data. Current Interpretive Data was last revised on 2018. Testing performed by: [address] [address] Basophil pct 1.1 % [facility] Comment: Interpretive Data Percent cell count reference ranges are not reported, since discordance with absolute values may lead to misinterpretation of CBC data. Current Interpretive Data was last revised on 2018. Testing performed by: [address] [address] Blood 11/13/2024 9:02 AM ASSISTANT READING TEACHER 11/13/2024 10:03 AM ASSISTANT READING TEACHER us Ivan Vargas MD LAB BLOOD ORDERABLES Final Re sult [facility] [address] [facility] [place] [address] * (ABNORMAL) CBC with auto differential (11/13/2024 9:02 AM ASSISTANT READING TEACHER) WBC 6.4 3.8 - 9.9 K/cumm Comment:Testing performed by : [address] [address] Hgb 8.4(L) 11.9 - 15.5 g/dL [facility] Comment:Testing performed by : [address] [address] Hct 25.2(L) 35.6 - 45.5 % [facility] Comment:Testing performed by : [address] [address] Plt 196 150 - 400 K/cumm [facility] Comment:Testing performed by : [address] [address] MPV 10.5 9.1 - 12.3 fL [facility] Comment:Testing performed by : [address] [address] RBC 2.52(L) 3.90 - 5.20 M/cumm [facility] Comment:Testing performed by : [address] [address] MCV 100.0(H) 81.3 - 96.4 fL [facility] Comment:Testing performed by : [address] [address] MCH 33.3 27.1 - 33.3 pg [facility] Comment:Testing performed by : [address] [address] MCHC 33.3 32.3 - 35.7 g/dL [facility] Comment:Testing performed by : [address] [address] RDW CV 16.8(H) 11.1 - 14.9 % [facility] Comment:Testing performed by : [address] [address] RDW SD 59.5(H) 35.7 - 48.1 fL [facility] Comment:Testing performed by : [address] [address] NRBC abs 0.00 0.00 - 0.01 K/cumm [facility] Comment:Testing performed by : [address] [address] Blood 11/13/2024 9:02 AM ASSISTANT READING TEACHER 11/13/2024 10:03 AM ASSISTANT READING TEACHER Ivan Vargas MD LAB BLOOD ORDERABLES Final Re sult Performing Organization Address City/[facility]/ZIP Co de Phone Number [address] [place] [employer] [place] [address] * Magnesium (11/13/2024 9:02 AM ASSISTANT READING TEACHER) Pathologist [facility] Magnesium 1.5 1.4 - 2.5 mg/dL Comment:Testing performed by : [address] [address] Blood 11/13/2024 9:02 AM ASSISTANT READING TEACHER 11/13/2024 10:02 AM ASSISTANT READING TEACHER Ivan Vargas MD LAB BLOOD ORDERABLES Final Re sult [address] [address] * (ABNORMAL) Comprehensive metabolic panel (11/13/2024 9:02 AM ASSISTANT READING TEACHER) Sodium 135 135 - 145 mmol/L Comment:Testing performed by : [facility], [address] [place] [address]., [address] Potassium, pl 3.6 3.3 - 4.9 mmol/L [facility] Comment:Testing performed by : [facility], [address] [place] [address], [place]., [address] Chloride 92(L) 97 - 110 mmol/L [facility] Comment:Testing performed by : [address], [place]., [address] CO2 29 22 - 32 mmol/L [facility] Comment:Testing performed by : [address], [place]., [address] Anion gap 14 2 - 15 mmol/L [facility] Comment:Testing performed by : [address] [address] BUN 28(H) 6 - 25 mg/dL [facility] Comment:Testing performed by : [address] [address] Creatinine 1.60(H) 0.60 - 1.10 mg/dL [facility] Comment:Testing performed by : [address] [address] Glucose 114 70 - 199 mg/dL [facility] Comment: Interpretive Data Fasting glucose >/= 126 [...] was last revised 2022. Testing performed by: [address] [address] Calcium 8.9 8.5 - 10.3 mg/dL [facility] Comment:Testing performed by : [address] [address] Bilirubin, total 1.5(H) 0.1 - 1.2 mg/dL [facility] Comment:Testing performed by : [address] [address] Protein, pl 5.7(L) 6.5 - 8.5 g/dL [facility] Comment:Testing performed by : [address] [address] Albumin 3.3(L) 3.5 - 5.0 g/dL [facility] Comment:Testing performed by : [address] [address] Alk phos 272(H) 40 - 130 Units/L [facility] Comment:Testing performed by : [address], [place]., [address] ALT 19 7 - 45 Units/L [facility] Comment:Testing performed by : [address] [address] AST 36 10 - 45 Units/L [facility] Comment:Testing performed by : [address] [address] Blood 11/13/2024 9:02 AM ASSISTANT READING TEACHER 11/13/2024 10:02 AM ASSISTANT READING TEACHER Ivan Vargas MD LAB BLOOD ORDERABLES Final Re sult [facility] Department of Laboratories [place], [place] [id number] * POCT glucose (11/13/2024 8:00 AM ASSISTANT READING TEACHER) [facility] Glucose, POC 128 70 - 199 mg/dL Comment:Testing performed by : [address] [address] Glucose comment 1 Use This Result [facility] Comment:Testing performed by : [address] [address] Glucose comment 2 RN/MD Notified [facility] Comment:Testing performed by : [address] [address] Blood 11/13/2024 8:00 AM ASSISTANT READING TEACHER 11/13/2024 8:00 AM ASSISTANT READING TEACHER Ivan Vargas MD LAB POCT ORDERABLES - DEVICE Final Result Performing Organization Address [facility] Co de Phone Number [facility] [address] [place] [employer] [place] [address] * Strep pneumoniae antigen, urine Urine (11/13/2024 12:28 AM ASSISTANT READING TEACHER) S. pneumoniae Ag Negative Negative Comment: Interpretive [...] on 2022 Urine 11/13/2024 12:2 8 AM ASSISTANT READING TEACHER 11/13/2024 2:18 AM ASSISTANT READING TEACHER Tino Lynne MD LAB MICROBIOLOGY - G ENERAL ORDERABLES Final Result Performing Organization Address [facility] de Phone Number MARY ALICE[address] [address] * Legionella antigen Urine (11/13/2024 12:28 AM ASSISTANT READING TEACHER) Legionella Ag Negative Negative Comment: Interpretive Data This test detects only Legionella pneumophila serogroup 1 antigen. Testing performed by [facility] ([phone]). Current interpretive data was last revised on 2020. Testing performed by: [facility], [address] [facility], [place]., [address] Urine 11/13/2024 12:2 8 AM ASSISTANT READING TEACHER 11/13/2024 3:19 AM ASSISTANT READING TEACHER Tino Lynne MD LAB MICROBIOLOGY - G ENERAL ORDERABLES Final Result Performing Organization Address City/[facility] Co de Phone Number MARY ALICE[address] [place] [employer] [place] [address] * (ABNORMAL) POCT glucose (11/12/2024 10:04 PM ASSISTANT READING TEACHER) [facility] Signature Glucose, POC 207(H) 70 - 199 mg/dL Comment:Testing performed by : [facility], [address] [place] [address]., [address] Glucose comment 1 Use This Result [facility] Comment:Testing performed by : [facility], [address] [place] [address]., [address] Blood 11/12/2024 10:0 4 PM ASSISTANT READING TEACHER 11/12/2024 10:04 PM ASSISTANT READING TEACHER us Ivan Vargas MD LAB POCT ORDERABLES - DEVICE Final Result [facility] [address] [facility] [place] [address] * TRANSTHORACIC ECHO (TTE) COMPLETE W DOPPLER/CF WO CONTRAST (11/12/2024 4:14 PM ASSISTANT READING TEACHER) Anatomical Region Laterality Modality Ultrasound 11/12/2024 3:49 PM ASSISTANT READING TEACHER Narrative 11/12/2024 6:37 PM ASSISTANT READING TEACHER Adult Echocardiogram + ----- + :Name: LOU ISLAS Study Date: 11/12/2024 Status: MHE : : Patient Location: [address]^[id number]^MHeight: 65 in : : Weight: 179 lbBP: [...] Date: 11/12/2024Status: MHE : : Patient Location: [address]^[id number]^MHeight: 65 in : : : 179 lbBP: [...] 1 or 2 Views (11/12/2024 2:18 PM ASSISTANT READING TEACHER) Anatomical Region Laterality Modality Lower Extremities, Knee Left Computed Radiography 11/12/2024 3:15 PM ASSISTANT READING TEACHER Narrative 11/12/2024 3:19 PM ASSISTANT READING TEACHER EXAM DESCRIPTION: XR KNEE LEFT 1 OR [...] Juan Daily M.D. MF: SHARIFA Report ID: [id number] Reading Location: [place] [address] Procedure Note Juan Daily MD - 11/12/2024 [...] Juan Daily M.D. MF: SHARIFA Report ID: [id number] Reading Location: [id number] Ivan Vargas MD IMG XR PROCEDURES Final Resul t * POCT glucose (11/12/2024 12:11 PM ASSISTANT READING TEACHER) Glucose, POC 156 70 - 199 mg/dL Comment:Testing performed by : [address] [address] Glucose comment 1 Use This Result [facility] Comment:Testing performed by : [address] [address] Blood 11/12/2024 12:1 1 PM ASSISTANT READING TEACHER 11/12/2024 12:11 PM ASSISTANT READING TEACHER Result [facility] Ivan Vargas MD LAB POCT ORDERABLES - DEVICE Final Result Performing Organization Address [facility] de Phone Number [address] [place] [employer] [place] [address] * POCT glucose (11/12/2024 10:02 AM ASSISTANT READING TEACHER) [facility] Glucose, POC 125 70 - 199 mg/dL Comment:Testing performed by : [address] [address] Glucose comment 1 Use This Result [facility] Comment:Testing performed by : [address] [address] Blood 11/12/2024 10:0 2 AM ASSISTANT READING TEACHER 11/12/2024 10:02 AM ASSISTANT READING TEACHER Ivan Vargas MD LAB POCT ORDERABLES - DEVICE Final Result Performing Organization Address City/[facility] Co de Phone Number [address] [employer] [place] [address] * (ABNORMAL) eGFR (11/12/2024 8:29 AM ASSISTANT READING TEACHER) [facility] eGFR 49(L) >=60 mL/min/1. 73 m2 [...] was last reviewed 2021. Testing performed by: [address] [address] Blood 11/12/2024 8:29 AM ASSISTANT READING TEACHER 11/12/2024 9:02 AM ASSISTANT READING TEACHER Tino Lynne MD LAB BLOOD ORDERABLES Final Result [facility] [address] [facility] [place] [address] * (ABNORMAL) Differential, auto (11/12/2024 8:29 AM ASSISTANT READING TEACHER) Neutrophil abs 5.0 1.5 - 6.5 K/cumm Comment:Testing performed by : [address] [address] Imm gran abs 0.1 0.0 - 0.1 K/cumm [facility] Comment:Testing performed by : [address] [address] Lymphocyte abs 0.8 0.8 - 3.3 K/cumm [facility] Comment:Testing performed by : [address] [address] Monocyte abs 0.9(H) 0.2 - 0.8 K/cumm [facility] Comment:Testing performed by : [address] [address] Eosinophil abs 0.3 0.0 - 0.5 K/cumm [facility] Comment:Testing performed by : [address] [address] Basophil abs 0.1 0.0 - 0.1 K/cumm [facility] Comment:Testing performed by : [address] [address] Neutrophil pct 70.4 % [facility] Comment: Interpretive Data Percent cell count reference ranges are not reported, since discordance with absolute values may lead to misinterpretation of CBC data. Current Interpretive Data was last revised on 2018. Testing performed by: [address] [address] Imm gran pct 1.0 % [facility] Comment: Interpretive Data Percent cell count reference ranges are not reported, since discordance with absolute values may lead to misinterpretation of CBC data. Current Interpretive Data was last revised on 2018. Testing performed by: [address] [address] Lymphocyte pct 11.1 % [facility] Comment: Interpretive Data Percent cell count reference ranges are not reported, since discordance with absolute values may lead to misinterpretation of CBC data. Current Interpretive Data was last revised on 2018. Testing performed by: [address] [address] Monocyte pct 12.5 % [facility] Comment: Interpretive Data Percent cell count reference ranges are not reported, since discordance with absolute values may lead to misinterpretation of CBC data. Current Interpretive Data was last revised on 2018. Testing performed by: [address] [address] Eosinophil pct 4.1 % [facility] Comment: Interpretive Data Percent cell count reference ranges are not reported, since discordance with absolute values may lead to misinterpretation of CBC data. Current Interpretive Data was last revised on 2018. Testing performed by: [address] [address] Basophil pct 0.9 % [facility] Comment: Interpretive Data Percent cell count reference ranges are not reported, since discordance with absolute values may lead to misinterpretation of CBC data. Current Interpretive Data was last revised on 2018. Testing performed by: [address] [address] Blood 11/12/2024 8:29 AM ASSISTANT READING TEACHER 11/12/2024 9:03 AM ASSISTANT READING TEACHER Tino Lynne MD LAB BLOOD ORDERABLES Final Result [facility] [address] [facility] [place] [address] * (ABNORMAL) CBC with auto differential (11/12/2024 8:29 AM ASSISTANT READING TEACHER) Pathologist [facility] WBC 7.0 3.8 - 9.9 K/cumm Comment:Testing performed by : [address] [address] Hgb 8.7(L) 11.9 - 15.5 g/dL [facility] Comment:Testing performed by : [address] [address] Hct 26.9(L) 35.6 - 45.5 % [facility] Comment:Testing performed by : [address] [address] Plt 203 150 - 400 K/cumm [facility] Comment:Testing performed by : [address] [address] MPV 10.4 9.1 - 12.3 fL [facility] Comment:Testing performed by : [address] [address] RBC 2.68(L) 3.90 - 5.20 M/cumm [facility] Comment:Testing performed by : [address] [address] MCV 100.4(H) 81.3 - 96.4 fL [facility] Comment:Testing performed by : [address] [address] MCH 32.5 27.1 - 33.3 pg [facility] Comment:Testing performed by : [address] [place]., [address] MCHC 32.3 32.3 - 35.7 g/dL [facility] Comment:Testing performed by : [address] [address] RDW CV 17.0(H) 11.1 - 14.9 % [facility] Comment:Testing performed by : [address] [address] RDW SD 59.2(H) 35.7 - 48.1 fL [facility] Comment:Testing performed by : [address] [address] NRBC abs 0.00 0.00 - 0.01 K/cumm [facility] Comment:Testing performed by : [address] [address] Blood 11/12/2024 8:29 AM ASSISTANT READING TEACHER 11/12/2024 9:03 AM ASSISTANT READING TEACHER Tino Lynne MD LAB BLOOD ORDERABLES Final Result [facility] Department of Laboratories [place], [place] [id number] * (ABNORMAL) Comprehensive metabolic panel (11/12/2024 8:29 AM ASSISTANT READING TEACHER) Sodium 137 135 - 145 mmol/L Comment:Testing performed by : [address] [address] Potassium, pl 3.4 3.3 - 4.9 mmol/L [facility] Comment:Testing performed by : [address] [address] Chloride 94(L) 97 - 110 mmol/L [facility] Comment:Testing performed by : [address] [address] CO2 29 22 - 32 mmol/L [facility] Comment:Testing performed by : [address] [address] Anion gap 14 2 - 15 mmol/L [facility] Comment:Testing performed by : [address] [address] BUN 23 6 - 25 mg/dL [facility] Comment:Testing performed by : [address] [address] Creatinine 1.20(H) 0.60 - 1.10 mg/dL [facility] Comment:Testing performed by : [address] [address] Glucose 112 70 - 199 mg/dL [facility] Comment: Interpretive Data Fasting glucose >/= 126 [...] was last revised 2022. Testing performed by: [address] [address] Calcium 9.3 8.5 - 10.3 mg/dL [facility] Comment:Testing performed by : [address] [address] Bilirubin, total 1.8(H) 0.1 - 1.2 mg/dL [facility] Comment:Testing performed by : [address] [address] Protein, pl 5.9(L) 6.5 - 8.5 g/dL [facility] Comment:Testing performed by : [address] [address] Albumin 3.5 3.5 - 5.0 g/dL [facility] Comment:Testing performed by : [address] [address] Alk phos 297(H) 40 - 130 Units/L [facility] Comment:Testing performed by : [address] [address] ALT 21 7 - 45 Units/L [facility] Comment:Testing performed by : [address] [address] AST 46(H) 10 - 45 Units/L [facility] Comment:Testing performed by : [facility], [address] [place] [address]., [address] Blood 11/12/2024 8:29 AM ASSISTANT READING TEACHER 11/12/2024 9:02 AM ASSISTANT READING TEACHER Tino Lynne MD LAB BLOOD ORDERABLES Final Result Performing Organization Address [facility] Co de Phone Number DAY[facility] [address] [address] * POCT glucose (11/12/2024 3:01 AM ASSISTANT READING TEACHER) Pathologist [facility] Glucose, POC 118 70 - 199 mg/dL Comment:Testing performed by : [address] [address] Glucose comment 1 Use This Result [facility] Comment:Testing performed by : [facility], [address] [place] [address]., [address] Blood 11/12/2024 3:01 AM ASSISTANT READING TEACHER 11/12/2024 3:01 AM ASSISTANT READING TEACHER Tino Lynne MD LAB POCT ORDERABLES - DEVICE Final Result Performing Organization Address [facility] de Phone Number [address] [address] * Blood culture Blood Peripheral (11/11/2024 9:45 PM ASSISTANT READING TEACHER) Report Final Report: No growth Comment:Testing performed by : [facility], [address] [facility], [place]., [address] Blood (Peripheral) 11/11/2024 9:45 PM ASSISTANT READING TEACHER 11/12/2024 1:21 AM ASSISTANT READING TEACHER Narrative [facility] - 11/16/2024 7:00 AM ASSISTANT READING TEACHER From a different site than #1. Draw [...] performance characteristics have been verified by the [facility]. For questions about this culture, contact the Microbiology Laboratory at [phone]. Interpretive data was last revised on 24. us Bravo Chino MD LAB MICROBIOLOGY - GEN ERAL ORDERABLES Final Result [facility] [address] [facility] [place] [address] * Blood culture Blood Peripheral (11/11/2024 9:45 PM ASSISTANT READING TEACHER) Report Final Report: No growth Comment:Testing performed by : [facility], [address] [facility] [place]., [address] Blood (Peripheral) 11/11/2024 9:45 PM ASSISTANT READING TEACHER 11/12/2024 1:22 AM ASSISTANT READING TEACHER Kaye CARPIO - 11/16/2024 7:00 AM ASSISTANT READING TEACHER Draw Blood cultures before administration of Antibiotics [...] performance characteristics have been verified by the [facility]. For questions about this culture, contact the Microbiology Laboratory at [phone]. Interpretive data was last revised on 24. us Bravo Chino MD LAB MICROBIOLOGY - GEN ERAL ORDERABLES Final Result [facility] [place] [address] * CT Chest Abdomen Pelvis WO Contrast (11/11/2024 8:07 PM ASSISTANT READING TEACHER) Anatomical Region Laterality Modality Body N/A Computed Tomogra phy 11/11/2024 8:12 PM ASSISTANT READING TEACHER Narrative 11/11/2024 8:29 PM ASSISTANT READING TEACHER EXAM DESCRIPTION: CT CHEST ABDOMEN PELVIS WO CONTRAST REASON FOR STUDY: fluid overload, CHF, possible cirrhosis Pt c/o increasing swelling to bilateral lower extremities that is spreading to lower abd x approx 3 weeks. Pt currently in half-way for rehab d/t recent hospital admission for [...] in the right lower lobe dependently. PLEURA: Iapir-in-yhocokth right pleural effusion is present. MEDIASTINUM/JETT: No [...] streak artifact. OTHER: No significant abnormality. IMPRESSION: Hmpll-dk-ebnkchek right pleural effusion with right lower lobe consolidation. Small patchy areas of density in the right upper and lower lobes may be infectious or inflammatory. Short-term follow-up is recommended. Small pericardial effusion. Hepatic cirrhosis. Cholelithiasis. Diffuse atherosclerotic disease. THIS IS AN ELECTRONICALLY VERIFIED FINAL REPORT 11/11/2024 8:29 PM - Electronically signed by Pedro De La Vega M.D. KH: [email or web address] Report ID: [id number] Reading Location: [place] [address] Procedure Note Pedro De La Vega MD - 11/11/2024 EXAM DESCRIPTION: CT CHEST ABDOMEN PELVIS WO CONTRAST REASON FOR STUDY: fluid overload, CHF, possible cirrhosis Pt c/o increasing swelling to bilateral lower extremities that isspreading to lower abd x approx 3 weeks. Pt currently in half-way for rehab d[facility]/ sepsis in [...] in the right lower lobe dependently. PLEURA: Fsyqw-cu-exvwgyxd right pleural effusion is present. MEDIASTINUM/JETT: No [...] streak artifact. OTHER: No significant abnormality. IMPRESSION: Lvmch-wn-fgrfuyts right pleural effusion with right lower lobeconsolidation. Small patchy areas of density in the right upper and lower lobes may be infectious or inflammatory. Short-term follow-up is recommended. Small pericardial effusion. Hepatic cirrhosis. Cholelithiasis. Diffuse atherosclerotic disease. THIS IS AN ELECTRONICALLY VERIFIED FINAL REPORT 11/11/2024 8:29 PM - Electronically signed by Pedro De La Vega M.D. KH: MADHAV Report ID: [id number] Reading Location: [id number] us Bravo Chino MD IMG CT PROCEDURES Manda l Result * XR Chest 1 Vw Portable (if patient condition/safety warrant portable) (11/11/2024 5:30 PM ASSISTANT READING TEACHER) Anatomical Region Laterality Modality Body, Chest N/A Computed Radiogr aphy 11/11/2024 6:12 PM ASSISTANT READING TEACHER Narrative 11/11/2024 6:12 PM ASSISTANT READING TEACHER EXAM DESCRIPTION: XR CHEST 1 VIEW REASON FOR STUDY: Shortness of breath Pt c/o increasing swelling to bilateral lower extremities that is spreading to lower abd x approx 3 weeks. Pt currently in half-way for rehab d/t recent hospital admission for [...] Eric Larson M.D. AG: CAM Report ID: [id number] Reading Location: [id number] Procedure Note Eric Larson MD - 11/11/2024 EXAM DESCRIPTION: XR CHEST 1 VIEW REASON FOR STUDY: Shortness of breath Pt c/o increasing swelling to bilateral lower extremities that isspreading to lower abd x approx 3 weeks. Pt currently in half-way for re[facility] d[facility]/ sepsis in [...] Eric Larson M.D. AG: CAM Report ID: [id number] Reading Location: [id number] us Bravo Chino MD IMG XR PROCEDURES Manda l Result * Sepsis Lactate w/ Reflex (11/11/2024 5:10 PM ASSISTANT READING TEACHER) Sepsis Lactate 1.6 0.7 - 2.0 mmol/L Comment:Testing performed by : [facility], [address] [place] [address]., [id number] Blood 11/11/2024 5:10 PM ASSISTANT READING TEACHER 11/11/2024 5:16 PM ASSISTANT READING TEACHER Bravo Chino MD LAB BLOOD ORDERABLES F inal Result [facility] [address] [facility] [place] [address] * (ABNORMAL) eGFR (11/11/2024 5:10 PM ASSISTANT READING TEACHER) Pathologist [facility] eGFR 43(L) >=60 mL/min/1. 73 m2 Comment: [...] was last reviewed 2021. Testing performed by: [address] [id number] Blood 11/11/2024 5:10 PM ASSISTANT READING TEACHER 11/11/2024 5:16 PM ASSISTANT READING TEACHER us Gloria Steen NP LAB BLOOD ORDERABLES Final Resul t [facility] [address] [facility] [place] [address] * (ABNORMAL) Differential, auto (11/11/2024 5:10 PM ASSISTANT READING TEACHER) [facility] Neutrophil abs 4.9 1.5 - 6.5 K/cumm Comment:Testing performed by : [address] [address] Imm gran abs 0.1 0.0 - 0.1 K/cumm [facility] Comment:Testing performed by : [address] [address] Lymphocyte abs 0.7(L) 0.8 - 3.3 K/cumm [facility] Comment:Testing performed by : [address] [address] Monocyte abs 0.9(H) 0.2 - 0.8 K/cumm [facility] Comment:Testing performed by : [address] [address] Eosinophil abs 0.2 0.0 - 0.5 K/cumm [facility] Comment:Testing performed by : [address], [place]., [address] Basophil abs 0.1 0.0 - 0.1 K/cumm [facility] Comment:Testing performed by : [address] [address] Neutrophil pct 71.4 % [facility] Comment: Interpretive Data Percent cell count reference ranges are not reported, since discordance with absolute values may lead to misinterpretation of CBC data. Current Interpretive Data was last revised on 2018. Testing performed by: [address] [address] Imm gran pct 1.0 % [facility] Comment: Interpretive Data Percent cell count reference ranges are not reported, since discordance with absolute values may lead to misinterpretation of CBC data. Current Interpretive Data was last revised on 2018. Testing performed by: [address] [address] Lymphocyte pct 10.8 % [facility] Comment: Interpretive Data Percent cell count reference ranges are not reported, since discordance with absolute values may lead to misinterpretation of CBC data. Current Interpretive Data was last revised on 2018. Testing performed by: [address] [address] Monocyte pct 13.0 % [facility] Comment: Interpretive Data Percent cell count reference ranges are not reported, since discordance with absolute values may lead to misinterpretation of CBC data. Current Interpretive Data was last revised on 2018. Testing performed by: [address] [address] Eosinophil pct 3.1 % [facility] Comment: Interpretive Data Percent cell count reference ranges are not reported, since discordance with absolute values may lead to misinterpretation of CBC data. Current Interpretive Data was last revised on 2018. Testing performed by: [address] [address] Basophil pct 0.7 % [facility] Comment: Interpretive Data Percent cell count reference ranges are not reported, since discordance with absolute values may lead to misinterpretation of CBC data. Current Interpretive Data was last revised on 2018. Testing performed by: [facility], [address] [place] [address]., [address] Blood 11/11/2024 5:10 PM ASSISTANT READING TEACHER 11/11/2024 5:16 PM ASSISTANT READING TEACHER us Gloria Steen NP LAB BLOOD ORDERABLES Final Resul t [facility] [address] [facility] [place] [address] * (ABNORMAL) Pro B-type natriuretic peptide (11/11/2024 5:10 PM ASSISTANT READING TEACHER) NT-proBNP 5,728(H) <=300 pg/mL Comment: Interpretive Comments: [...] Heart J. 2006:27:330-337. 2. Servando SMITH, Miriam ESTRADA. J. AM Armando Cardiol: Cardiovasc Imag. 2009;2: 216- 225. Interpretive Data Last Revised Date: 2018. Testing performed by: [address] [address] Blood 11/11/2024 5:10 PM ASSISTANT READING TEACHER 11/11/2024 5:16 PM ASSISTANT READING TEACHER us Bravo Chino MD LAB BLOOD ORDERABLES F inal Result [facility] Department of Laboratories [place], [place] [id number] * (ABNORMAL) CBC with auto differential (11/11/2024 5:10 PM ASSISTANT READING TEACHER) WBC 6.9 3.8 - 9.9 K/cumm Comment:Testing performed by : [address] [address] Hgb 9.3(L) 11.9 - 15.5 g/dL [facility] Comment:Testing performed by : [address] [address] Hct 28.3(L) 35.6 - 45.5 % [facility] Comment:Testing performed by : [address] [address] Plt 209 150 - 400 K/cumm [facility] Comment:Testing performed by : [address] [address] MPV 10.3 9.1 - 12.3 fL [facility] Comment:Testing performed by : [address] [address] RBC 2.84(L) 3.90 - 5.20 M/cumm [facility] Comment:Testing performed by : [address] [address] MCV 99.6(H) 81.3 - 96.4 fL [facility] Comment:Testing performed by : [address] [address] MCH 32.7 27.1 - 33.3 pg [facility] Comment:Testing performed by : [address] [address] MCHC 32.9 32.3 - 35.7 g/dL [facility] Comment:Testing performed by : [address] [address] RDW CV 17.0(H) 11.1 - 14.9 % [facility] Comment:Testing performed by : [address] [address] RDW SD 59.6(H) 35.7 - 48.1 fL [facility] Comment:Testing performed by : [address] [address] NRBC abs 0.00 0.00 - 0.01 K/cumm [facility] Comment:Testing performed by : [address] [address] Blood 11/11/2024 5:10 PM ASSISTANT READING TEACHER 11/11/2024 5:16 PM ASSISTANT READING TEACHER us Bravo Chino MD LAB BLOOD ORDERABLES F inal Result [facility] [address] [facility] Department of Laboratories [place], [place] [id number] * (ABNORMAL) Comprehensive metabolic panel (11/11/2024 5:10 PM ASSISTANT READING TEACHER) Sodium 136 135 - 145 mmol/L Comment:Testing performed by : [address] [address] Potassium, pl 3.6 3.3 - 4.9 mmol/L [facility] Comment: Hemolyzed; Potassium value may be falsely elevated by as much as 1.0 mmol/L. Suggest redraw and reanalysis. Testing performed by: [address] [address] Chloride 93(L) 97 - 110 mmol/L [facility] Comment:Testing performed by : [address] [address] CO2 32 22 - 32 mmol/L [facility] Comment:Testing performed by : [address] [address] Anion gap 11 2 - 15 mmol/L [facility] Comment:Testing performed by : [address] [address] BUN 23 6 - 25 mg/dL [facility] Comment:Testing performed by : [address] [address] Creatinine 1.32(H) 0.60 - 1.10 mg/dL [facility] Comment:Testing performed by : [address] [address] Glucose 170 70 - 199 mg/dL [facility] Comment: Interpretive Data Fasting glucose >/= 126 [...] was last revised 2022. Testing performed by: [address] [address] Calcium 9.6 8.5 - 10.3 mg/dL [facility] Comment:Testing performed by : [address] [address] Bilirubin, total 1.9(H) 0.1 - 1.2 mg/dL [facility] Comment:Testing performed by : [address] [address] Protein, pl 6.3(L) 6.5 - 8.5 g/dL [facility] Comment:Testing performed by : [address] [address] Albumin 3.6 3.5 - 5.0 g/dL [facility] Comment:Testing performed by : [facility], [address] [place] [address]., [address] Alk phos 337(H) 40 - 130 Units/L [facility] Comment:Testing performed by : [address] [address] ALT 30 7 - 45 Units/L [facility] Comment:Testing performed by : [address] [address] AST 73(H) 10 - 45 Units/L [facility] Comment: Hemolyzed; result may be falsely elevated Testing performed by: [address] [address] Blood 11/11/2024 5:10 PM ASSISTANT READING TEACHER 11/11/2024 5:16 PM ASSISTANT READING TEACHER Bravo Chino MD LAB BLOOD ORDERABLES F inal Result [facility] [address] [facility] Department [place] [address] * Cardiology Document Scan (11/01/2024 10:08 AM ASSISTANT READING TEACHER) Anatomical Region Laterality Modality Other Bridget Nicholson NP CV CARDIAC SERVICES PROCEDUR ES Final Result * Cardiology Document Scan (10/31/2024 9:21 AM ASSISTANT READING TEACHER) Anatomical Region Laterality Modality Other us Jc Schaffer MD CV CARDIAC SERVICES PROCEDURES F inal Result * POCT lipid panel (11/15/2023 2:47 PM ASSISTANT READING TEACHER) Cholesterol, POC 146 mg/dL Comment:GLU = 90 HDL, POC 58 mg/dL Triglycerides, POC 87 mg/dL LDL Cholesterol POC 70 mg/dL Chol/HDL Ratio, POC 1.2 Non-HDL Cholesterol, POC 88 mg/dL Cholesterol Total, POC 146 mg/dL Capillary blood 11/15/2023 2 :47 PM ASSISTANT READING TEACHER Bridget Nicholson NP POINT OF CARE TEST ORDERABLE S Final Result from Last 3 Months or Most Recently Relevant to Health Maintenance Insurance MEDICARE [employer] Advance Directives For more information, please contact: [phone] Documents on File Type Date Recorded Patient Associate Material Handler Expl anation ADVANCE DIRECTIVE 11/13/2024 3:42 PM Power of Digital Cartographic Technician-Medical * Full Code (Latest Code Status on File) Date Activated Date Inactivated Comments 11/12/2024 2:31 AM 11/20/2024 10:35 PM Care Teams Slicing Machine Operator Relationship Specialty Start Date End Date Ghanshyam Ruiz NP [address] [place] [id number] PCP - General Nurse Practitioner 09/03/24 Augustus Birch MD [address] [facility] [address] [address] Internal Medicine 04/17/19
--- OUTSIDE RECORDS SUMMARY | 2025-01-14 14:59 | XMS_ITS | Referral Summary ---
Author Organization [facility] Address [address] [place] [address] Care Team Providers Care Visor Installer Name Role Phone Augustus Birch MD Unavailable Ghanshyam Ruiz NP Primary Care Provider [phone] Encounters Date Type Department Care Team Description 01/14/2025 Telephone [facility] Cardiology [address] [place] [address] Carlitos Edmonds MD 12/26/2024 9:15 AM CDT - 12/26/2024 11:59 PM CDT Hospital Encounter [facility] MOB 1 DIAG IMG [address] [place] [address] Closed fracture of medial portion of left tibial plateau, initial encounter Discharge Disposition: Discharge to home or self care 12/26/2024 9:30 AM CDT Office Visit [facility] Orthopedics and Sports Medicine [address] [facility] [address] [place] [phone] Samara Soto PA Closed fracture of medial portion of left tibial plateau with routine healing, subsequent encounter (Primary Dx) 12/25/2024 9:30 AM CDT Office Visit [facility] Cardiology [address] [place] [phone] Bridget Nicholson NP Congestive heart failure, unspecified HF chronicity, unspecified heart failure type (HCC) (Primary Dx); Lymphedema of both lower extremities; Closed fracture of medial portion of left tibial plateau, initial encounter; Chronic venous insufficiency of lower extremity 11/27/2024 11:00 AM OLERICULTURIST Office Visit [facility] Vascular at [address] [place] [address] Lexie Rucker MD Chronic venous insufficiency of lower extremity (Primary Dx) 11/26/2024 2:00 PM OLERICULTURIST Ancillary Procedure [facility] Vascular and Vein Surgery at [address] [place] [address] Varicose veins of lower extremity with pain, bilateral; Other specified symptoms and signs involving the circulatory and respiratory systems 11/26/2024 1:00 PM OLERICULTURIST Ancillary Procedure [facility] Vascular and Vein Surgery at [address] [place] [address] Varicose veins of lower extremity with pain, bilateral 11/25/2024 Orders Only [facility] Cardiology [address] [place] [address] Bridget Nicholson NP 11/21/2024 Telephone [facility] Nephrology at [address] [place] [address] Bravo Mckenzie MD 11/11/2024 5:12 PM OLERICULTURIST - 11/20/2024 6:14 PM OLERICULTURIST Hospital Encounter [facility] 5 Med Surg [address] [place] [address] Bravo Chino MD [place], MD Devorah Mejias [...] initial encounter [S82.132A] Discharge Disposition: Discharge to [facility] 11/07/2024 Orders Only [facility] Cardiology [address] [place] [address] Jc Schaffer MD 10/30/2024 Telephone [facility] Cardiology [address] [place] [address] Carlitos Edmonds MD from Last [...] mouth daily Active blood-glucose meter,continuous (Dexcom G6 Chair Spring Assembler) [facility] [place] thiamine (VITAMIN B1) 100 mg [...] 1 tablet (1 g total) by mouth perforator operator before breakfast 06/04/20 21 Active sodium zirconium [...] 11/29/2024 Assessment & Plan (11/29/2024 11:50 AM OLERICULTURIST): Bilateral lower extremity chronic venous insufficiency with [...] Tobacco: Never Tobacco Cessation:Counseling Given: Not Answered [facility] Utilities Answer Date Recorded In the past 12 months has [employer], gas, oil, or water [employer] threatened to shut off services in your [...] How often do you attend chur or protestant services? More than 4 times per year 11/12/2024 Do you belong to any clubs o r organizations such as yazidi groups, unions, fraternal or athletic groups, or [...] any time in the past 12 m [facility], were you homeless or living in a care home (including now)? No 11/12/2024 Personal Safety Answer [...] 36.4 C (97.5 F) 11/20/2024 4:02 AM OLERICULTURIST Respiratory Rate 18 11/20/2024 8:44 AM OLERICULTURIST Oxygen Saturation 99% 12/25/2024 9:24 AM CDT [...] Read Routine (OP Routine) 11/26/2024 2:32 PM OLERICULTURIST Varicose veins of lower extremity with pain, bilateral Other specified symptoms and signs involving the circulatory and respiratory systems US VENOUS REFLUX BILATERAL Routine 11/26/2024 2:32 PM OLERICULTURIST Varicose veins of lower extremity with pain, bilateral POCT GLUCOSE DEVICE Routine 11/20/2024 5 :57 PM OLERICULTURIST POCT GLUCOSE DEVICE Routine 11/20/2024 1 2:28 PM OLERICULTURIST POCT GLUCOSE DEVICE Routine 11/20/2024 8 :57 AM OLERICULTURIST EGFR Routine 11/20/2024 5:33 AM OLERICULTURIST DIFFERENTIAL AUTO Routine 11/20/2024 5:3 3 AM OLERICULTURIST COMPREHENSIVE METABOLIC PANEL Routine 11/20/2024 5:33 AM OLERICULTURIST CBC WITH AUTO DIFFERENTIAL Routine 11/20/2024 5:33 AM OLERICULTURIST POCT GLUCOSE DEVICE Routine 11/19/2024 8 :57 PM OLERICULTURIST POCT GLUCOSE DEVICE Routine 11/19/2024 5 :10 PM OLERICULTURIST POCT GLUCOSE DEVICE Routine 11/19/2024 1 2:24 PM OLERICULTURIST POCT GLUCOSE DEVICE Routine 11/19/2024 1 1:36 AM OLERICULTURIST POCT GLUCOSE DEVICE Routine 11/19/2024 8 :22 AM OLERICULTURIST EGFR Routine 11/19/2024 6:23 AM OLERICULTURIST DIFFERENTIAL AUTO Routine 11/19/2024 6:2 3 AM OLERICULTURIST AMMONIA Routine 11/19/2024 6:23 AM OLERICULTURIST COMPREHENSIVE METABOLIC PANEL Routine 11/19/2024 6:23 AM OLERICULTURIST CBC WITH AUTO DIFFERENTIAL Routine 11/19/2024 6:23 AM OLERICULTURIST POCT GLUCOSE DEVICE Routine 11/18/2024 8 :[address] ABDOMEN PELVIS WO CONTRAST IP Routine 11/18/2024 8:34 PM OLERICULTURIST POCT GLUCOSE DEVICE Routine 11/18/2024 5 :49 PM OLERICULTURIST POCT GLUCOSE DEVICE Routine 11/18/2024 1 2:43 PM OLERICULTURIST POCT GLUCOSE DEVICE Routine 11/18/2024 7 :55 AM OLERICULTURIST DIFFERENTIAL AUTO Routine 11/18/2024 6:3 5 AM OLERICULTURIST CBC WITH AUTO DIFFERENTIAL Routine 11/18/2024 6:35 AM OLERICULTURIST EGFR Routine 11/18/2024 5:52 AM OLERICULTURIST FOLATE Routine 11/18/2024 5:52 AM OLERICULTURIST VITAMIN B12 Routine 11/18/2024 5:52 AM OLERICULTURIST COMPREHENSIVE METABOLIC PANEL Routine 11/18/2024 5:52 AM OLERICULTURIST POCT GLUCOSE DEVICE Routine 11/17/2024 8 :52 PM OLERICULTURIST POCT GLUCOSE DEVICE Routine 11/17/2024 6 :05 PM OLERICULTURIST POCT GLUCOSE DEVICE Routine 11/17/2024 1 :08 PM OLERICULTURIST POCT GLUCOSE DEVICE Routine 11/17/2024 9 :20 AM OLERICULTURIST EGFR Routine 11/17/2024 7:01 AM OLERICULTURIST DIFFERENTIAL AUTO Routine 11/17/2024 7:0 1 AM OLERICULTURIST COMPREHENSIVE METABOLIC PANEL Routine 11/17/2024 7:01 AM OLERICULTURIST CBC WITH AUTO DIFFERENTIAL Routine 11/17/2024 7:01 AM OLERICULTURIST POCT GLUCOSE DEVICE Routine 11/16/2024 7 :44 PM OLERICULTURIST POCT GLUCOSE DEVICE Routine 11/16/2024 6 :33 PM OLERICULTURIST POCT GLUCOSE DEVICE Routine 11/16/2024 1 1:54 AM OLERICULTURIST HEMOGLOBIN A1C Routine 11/16/2024 9:56 AM OLERICULTURIST EGFR Routine 11/16/2024 9:56 AM OLERICULTURIST DIFFERENTIAL AUTO Routine 11/16/2024 9:5 6 AM OLERICULTURIST COMPREHENSIVE METABOLIC PANEL Routine 11/16/2024 9:56 AM OLERICULTURIST CBC WITH AUTO DIFFERENTIAL Routine 11/16/2024 9:56 AM OLERICULTURIST POCT GLUCOSE DEVICE Routine 11/16/2024 8 :53 AM OLERICULTURIST POCT GLUCOSE DEVICE Routine 11/16/2024 1 2:30 AM OLERICULTURIST POCT GLUCOSE DEVICE Routine 11/15/2024 8 :35 PM OLERICULTURIST POCT GLUCOSE DEVICE Routine 11/15/2024 5 :29 PM OLERICULTURIST POCT GLUCOSE DEVICE Routine 11/15/2024 1 :28 PM OLERICULTURIST POCT GLUCOSE DEVICE Routine 11/15/2024 8 :56 AM OLERICULTURIST MAGNESIUM Routine 11/15/2024 4:35 AM OLERICULTURIST EGFR Routine 11/15/2024 4:35 AM OLERICULTURIST DIFFERENTIAL AUTO Routine 11/15/2024 4:3 5 AM OLERICULTURIST PROTIME-INR Routine 11/15/2024 4:35 AM OLERICULTURIST COMPREHENSIVE METABOLIC PANEL Routine 11/15/2024 4:35 AM OLERICULTURIST CBC WITH AUTO DIFFERENTIAL Routine 11/15/2024 4:35 AM OLERICULTURIST POCT GLUCOSE DEVICE Routine 11/14/2024 9 :28 PM OLERICULTURIST POCT GLUCOSE DEVICE Routine 11/14/2024 5 :48 PM OLERICULTURIST SODIUM, URINE, RANDOM Routine 11/14/2024 3:29 PM OLERICULTURIST URINALYSIS AND REFLEX TO MICROSCOPIC AND CULTURE STAT 11/14/2024 3:28 PM OLERICULTURIST AMMONIA Add-On 11/14/2024 2:16 PM OLERICULTURIST POCT GLUCOSE DEVICE Routine 11/14/2024 1 1:21 AM OLERICULTURIST POCT GLUCOSE DEVICE Routine 11/14/2024 8 :11 AM OLERICULTURIST EGFR Routine 11/14/2024 5:03 AM OLERICULTURIST DIFFERENTIAL AUTO Routine 11/14/2024 5:0 3 AM OLERICULTURIST COMPREHENSIVE METABOLIC PANEL Routine 11/14/2024 5:03 AM OLERICULTURIST CBC WITH AUTO DIFFERENTIAL Routine 11/14/2024 5:03 AM OLERICULTURIST POCT GLUCOSE DEVICE Routine 11/14/2024 4 :41 AM OLERICULTURIST POCT GLUCOSE DEVICE Routine 11/13/2024 7 :59 PM OLERICULTURIST POCT GLUCOSE DEVICE Routine 11/13/2024 5 :[address] KNEE LEFT WO CONTRAST IP Routine 11/13/2024 4:52 PM OLERICULTURIST US CHEST IP Routine 11/13/2024 2:21 PM OLERICULTURIST POCT GLUCOSE DEVICE Routine 11/13/2024 2 :13 PM OLERICULTURIST FLUORO GUIDED ASPIRATION KNEE LEFT IP Routine 11/13/2024 1:30 PM OLERICULTURIST EGFR Routine 11/13/2024 9:02 AM OLERICULTURIST DIFFERENTIAL AUTO Routine 11/13/2024 9:0 2 AM OLERICULTURIST COMPREHENSIVE METABOLIC PANEL Routine 11/13/2024 9:02 AM OLERICULTURIST CBC WITH AUTO DIFFERENTIAL Routine 11/13/2024 9:02 AM OLERICULTURIST MAGNESIUM Routine 11/13/2024 9:02 AM OLERICULTURIST POCT GLUCOSE DEVICE Routine 11/13/2024 8 :00 AM OLERICULTURIST STREP PNEUMONIAE AG, URINE Routine 11/13/2024 12:28 AM OLERICULTURIST LEGIONELLA ANTIGEN, URINE Routine 11/13/2024 12:28 AM OLERICULTURIST POCT GLUCOSE DEVICE Routine 11/12/2024 1 0:04 PM OLERICULTURIST TRANSTHORACIC ECHO (TTE) COMPLETE W DOPPLER/CF WO CONTRAST Routine 11/12/2024 4:14 PM OLERICULTURIST XR KNEE LEFT 1 OR 2 VIEWS IP Routine 11/12/2024 2:18 PM OLERICULTURIST POCT GLUCOSE DEVICE Routine 11/12/2024 1 2:11 PM OLERICULTURIST POCT GLUCOSE DEVICE Routine 11/12/2024 1 0:02 AM OLERICULTURIST EGFR Routine 11/12/2024 8:29 AM OLERICULTURIST DIFFERENTIAL AUTO Routine 11/12/2024 8:2 9 AM OLERICULTURIST CBC WITH AUTO DIFFERENTIAL Routine 11/12/2024 8:29 AM OLERICULTURIST COMPREHENSIVE METABOLIC PANEL Routine 11/12/2024 8:29 AM OLERICULTURIST POCT GLUCOSE DEVICE Routine 11/12/2024 3 :01 AM OLERICULTURIST BLOOD CULTURE STAT 11/11/2024 9:45 PM OLERICULTURIST BLOOD CULTURE STAT 11/11/2024 9:[address] CHEST ABDOMEN PELVIS WO CONTRAST ED 11/11/2024 8:07 PM OLERICULTURIST XR CHEST 1 VIEW ED 11/11/2024 5:30 PM OLERICULTURIST EGFR STAT 11/11/2024 5:10 PM OLERICULTURIST DIFFERENTIAL AUTO STAT 11/11/2024 5:1 0 PM OLERICULTURIST PRO B-TYPE NATRIURETIC PEPTIDE STAT 11/11/2024 5:10 PM OLERICULTURIST SEPSIS LACTATE WITH REFLEX Routine 11/11/2024 5:10 PM OLERICULTURIST COMPREHENSIVE METABOLIC PANEL STAT 11/11/2024 5:10 PM OLERICULTURIST CBC WITH AUTO DIFFERENTIAL STAT 11/11/2024 5:10 PM OLERICULTURIST CARDIOLOGY DOCUMENT SCAN Routine 11/01/2024 10:08 AM OLERICULTURIST CARDIOLOGY DOCUMENT SCAN Routine 10/31/2024 9:21 AM OLERICULTURIST POCT LIPID PANEL Routine 11/15/2023 2:47 PM OLERICULTURIST Lipid screening from Last 3 Months or [...] Stewart Greene M.D. RB: BECKI Report ID: [id number] [place] Location: [id number] Procedure Note Stewart Greene MD - 12/30/2024 [...] Stewart Greene M.D. RB: BECKI Report ID: [id number] [place] Location: [id number] us Samara MEDEIROS IMJaylyn XR PROCEDURES Final Result * US SONIA (11/26/2024 2:32 PM OLERICULTURIST) Anatomical Region Laterality Modality Vascular N/A Ultrasound 11/26/2024 12:3 5 PM OLERICULTURIST Narrative 11/27/2024 9:12 AM OLERICULTURIST Vascular & Vein Surgery [address] [facility] [place] [address] Lower Extremity Arterial Doppler Report Patient Name: LOU ISLAS B : 1955 Study Date: 11/26/2024 12:35:00 PM Gender: F Foundation Coordinator: Maiar Gonzalez Eljiah Location: [facility] Ref Provider: LEXIE RUCKER Quality: Adequate Order Provider: LEXIE RUCKER PROCEDURES: Arterial Report: Ankle - Brachial Index Doppler exam. INDICATIONS: BLE wounds with varicose veins. HISTORY: Hypertension. Hyperlipidemia. Diabetic. CHF. Former smoker. COMPARISONS: No previous exams. MEASUREMENTS: Right Value Left Value Rt Brachial Pressure 104 mmHg Lt Brachial Pressure 111 mmHg Rt SCHOOL SPEECH THERAPIST Pressure >220 mmHg Lt SCHOOL SPEECH THERAPIST Pressure >220 mmHg Rt DPA Pressure 196 [...] By: Lexie Rucker MD 11/27/2024 8:47:23 AM OLERICULTURIST Procedure Note Lexie Rucker MD - 11/27/2024 Vascular & Vein Surgery [address] [facility] [place] [address] Lower Extremity Arterial Doppler Report Patient Name: LOU ISLAS B : 1955 Study Date: 11/26/2024 12:35:00 PM Gender: F Foundation Coordinator: Maira Gonzalez RVT Location: [facility] Ref Provider: LEXIE RUCKER Quality: Adequate Order Provider: LEXIE RUCKER PROCEDURES: Arterial Report: Ankle - Brachial Index Doppler exam. INDICATIONS: BLE wounds with varicose veins. HISTORY: Hypertension. Hyperlipidemia. Diabetic. CHF. Former smoker. COMPARISONS: No previous exams. MEASUREMENTS: Right Value Left Value Rt Brachial Pressure 104 mmHg Lt Brachial Pressure 111 mmHg Rt SCHOOL SPEECH THERAPIST Pressure >220 mmHg Lt SCHOOL SPEECH THERAPIST Pressure >220 mmHg Rt DPA Pressure 196 [...] By: Lexie Rucker MD 11/27/2024 8:47:23 AM OLERICULTURIST us Lexie Rucker MD IMG US PROCEDURES Final Result * US Venous Reflux Bilateral (11/26/2024 2:32 PM OLERICULTURIST) Anatomical Region Laterality Modality Vascular Bilateral Ultrasound 11/26/2024 12:5 9 PM OLERICULTURIST Narrative 11/27/2024 9:12 AM OLERICULTURIST Vascular & Vein Surgery [address] [place] [address] Lower Extremity Venous Reflux Duplex Report Patient Name: LOU ISLAS B : 1955 (69y 7m) Study Date: 11/26/2024 12:59:40 PM Gender: F Foundation Coordinator: Location: [facility] Ref Provider: LEXIE RUCKER Quality: [...] in sapheno-femoral junction and small saphenous vein. Gas Desulfurizer vein noted at distal posterior medial calf, [...] By: Lexie Rucker MD 11/27/2024 8:47:00 AM OLERICULTURIST Procedure Note Lexie Rucker MD - 11/27/2024 Vascular & Vein Surgery [address] [facility] [place] [address] Lower Extremity Venous Reflux Duplex Report Patient Name: LOU ISLAS B : 1955 (69y 7m) Study Date: 11/26/2024 12:59:40 PM Gender: F Foundation Coordinator: NIEVES Location: [facility] Ref Provider: LEXIE RUCKER [...] noted in sapheno-femoral junction and small saphenous vein.Gas Desulfurizer vein noted at distal posterior medial calf, [...] By: Lexie Rucker MD 11/27/2024 8:47:00 AM OLERICULTURIST us Lexie Rucker MD IM US PROCEDURES Final Result * POCT glucose (11/20/2024 5:57 PM OLERICULTURIST) Glucose, POC 175 70 - 199 mg/dL Comment:Testing performed by : [address] [address] Blood 11/20/2024 5:57 PM OLERICULTURIST 11/20/2024 5:57 PM OLERICULTURIST Joe Herron MD LAB POCT ORDERABLES - DEVICE Final Result [facility] [address] [facility] [place] [address] * POCT glucose (11/20/2024 12:28 PM OLERICULTURIST) Glucose, POC 186 70 - 199 mg/dL Comment:Testing performed by : [address] [address] Glucose comment 1 Use This Result DAYANA CARPIO Comment:Testing performed by : [address] [address] Glucose comment 2 RN/MD Notified DAYANA CAPRIO Comment:Testing performed by : [address] [address] Blood 11/20/2024 12:2 8 PM OLERICULTURIST 11/20/2024 12:28 PM OLERICULTURIST us Joe Herron MD LAB POCT ORDERABLES - DEVICE Final Result Performing Organization Address [facility] de Phone Number DAYANA [address] [place] [address] * POCT glucose (11/20/2024 8:57 AM OLERICULTURIST) Pathologist [facility] Glucose, POC 157 70 - 199 mg/dL Comment:Testing performed by : [address] [address] Glucose comment 1 Use This Result DAYANA CARPIO Comment:Testing performed by : [address] [address] Glucose comment 2 RN/MD Notified DAYANA Comment:Testing performed by : [address] [address] Blood 11/20/2024 8:57 AM OLERICULTURIST 11/20/2024 8:57 AM OLERICULTURIST us Joe Herron MD LAB POCT ORDERABLES - DEVICE Final Result Performing Organization Address [facility] Co de Phone Number DAYANA [address] [address] * (ABNORMAL) eGFR (11/20/2024 5:33 AM OLERICULTURIST) [facility] eGFR 24(L) >=60 mL/min/1. 73 m2 [...] was last reviewed 2021. Testing performed by: [address] [address] Blood 11/20/2024 5:33 AM OLERICULTURIST 11/20/2024 5:56 AM OLERICULTURIST us Ivan Vargas MD LAB BLOOD ORDERABLES Final Re sult DAYANA [address] [facility] [place] [address] * (ABNORMAL) Differential, auto (11/20/2024 5:33 AM OLERICULTURIST) Neutrophil abs 3.7 1.5 - 6.5 K/cumm Comment:Testing performed by : [address] [address] Imm gran abs 0.1 0.0 - 0.1 K/cumm DAYANA Comment:Testing performed by : [address] [address] Lymphocyte abs 1.1 0.8 - 3.3 K/cumm DAYANA Comment:Testing performed by : [address] [address] Monocyte abs 1.0(H) 0.2 - 0.8 K/cumm DAYANA Comment:Testing performed by : [address] [address] Eosinophil abs 0.8(H) 0.0 - 0.5 K/cumm DAYANA Comment:Testing performed by : [address] [address] Basophil abs 0.1 0.0 - 0.1 K/cumm DAYANA Comment:Testing performed by : [address] [address] Neutrophil pct 55.1 % DAYANA Comment: Interpretive Data Percent cell count reference ranges are not reported, since discordance with absolute values may lead to misinterpretation of CBC data. Current Interpretive Data was last revised on 2018. Testing performed by: [address] [address] Imm gran pct 1.2 % [facility] Comment: Interpretive Data Percent cell count reference ranges are not reported, since discordance with absolute values may lead to misinterpretation of CBC data. Current Interpretive Data was last revised on 2018. Testing performed by: [address] [address] Lymphocyte pct 16.2 % [facility] Comment: Interpretive Data Percent cell count reference ranges are not reported, since discordance with absolute values may lead to misinterpretation of CBC data. Current Interpretive Data was last revised on 2018. Testing performed by: [address] [address] Monocyte pct 14.3 % [facility] Comment: Interpretive Data Percent cell count reference ranges are not reported, since discordance with absolute values may lead to misinterpretation of CBC data. Current Interpretive Data was last revised on 2018. Testing performed by: [address] [address] Eosinophil pct 12.3 % [facility] Comment: Interpretive Data Percent cell count reference ranges are not reported, since discordance with absolute values may lead to misinterpretation of CBC data. Current Interpretive Data was last revised on 2018. Testing performed by: [address] [address] Basophil pct 0.9 % [facility] Comment: Interpretive Data Percent cell count reference ranges are not reported, since discordance with absolute values may lead to misinterpretation of CBC data. Current Interpretive Data was last revised on 2018. Testing performed by: [address] [address] Blood 11/20/2024 5:33 AM OLERICULTURIST 11/20/2024 5:56 AM OLERICULTURIST us Ivan Vargas MD LAB BLOOD ORDERABLES Final Re sult DAYANA [address] [facility] [place] [address] * (ABNORMAL) CBC with auto differential (11/20/2024 5:33 AM OLERICULTURIST) WBC 6.7 3.8 - 9.9 K/cumm Comment:Testing performed by : [address] [address] Hgb 9.2(L) 11.9 - 15.5 g/dL DAYANA Comment:Testing performed by : [address] [address] Hct 29.0(L) 35.6 - 45.5 % DAYANA Comment:Testing performed by : [address] [address] Plt 275 150 - 400 K/cumm DAYANA Comment:Testing performed by : [address] [address] MPV 11.0 9.1 - 12.3 fL DAYANA Comment:Testing performed by : [address] [address] RBC 2.80(L) 3.90 - 5.20 M/cumm DAYANA Comment:Testing performed by : [address] [address] MCV 103.6(H) 81.3 - 96.4 fL DAYANA Comment:Testing performed by : [address] [address] MCH 32.9 27.1 - 33.3 pg DAYANA Comment:Testing performed by : [address] [address] MCHC 31.7(L) 32.3 - 35.7 g/dL DAYANA Comment:Testing performed by : [address] [address] RDW CV 16.5(H) 11.1 - 14.9 % DAYANA Comment:Testing performed by : [address] [address] RDW SD 62.3(H) 35.7 - 48.1 fL CERNER MH Comment:Testing performed by : [address] [address] NRBC abs 0.00 0.00 - 0.01 K/cumm DAYANA CARPIO Comment:Testing performed by : [address] [address] Blood 11/20/2024 5:33 AM OLERICULTURIST 11/20/2024 5:56 AM OLERICULTURIST us Ivan Vargas MD LAB BLOOD ORDERABLES Final Re sult DAYANA [address] [facility] [place] [address] * (ABNORMAL) Comprehensive metabolic panel (11/20/2024 5:33 AM OLERICULTURIST) Sodium 134(L) 135 - 145 mmol/L Comment:Testing performed by : [address] [address] Potassium, pl 3.8 3.3 - 4.9 mmol/L DAYANA Comment:Testing performed by : [address] [address] Chloride 91(L) 97 - 110 mmol/L DAYANA Comment:Testing performed by : [address] [address] CO2 26 22 - 32 mmol/L DAYANA Comment:Testing performed by : [address] [address] Anion gap 17(H) 2 - 15 mmol/L DAYANA Comment:Testing performed by : [address] [address] BUN 51(H) 6 - 25 mg/dL DAYANA Comment:Testing performed by : [address] [address] Creatinine 2.20(H) 0.60 - 1.10 mg/dL DAYANA CARPIO Comment:Testing performed by : [address] [address] Glucose 149 70 - 199 mg/dL DAYANA [...] was last revised 2022. Testing performed by: [address] [address] Calcium 10.3 8.5 - 10.3 mg/dL DAYANA Comment:Testing performed by : [address] [address] Bilirubin, total 1.3(H) 0.1 - 1.2 mg/dL DAYANA Comment:Testing performed by : [address] [address] Protein, pl 6.6 6.5 - 8.5 g/dL DAYANA Comment:Testing performed by : [address] [address] Albumin 3.8 3.5 - 5.0 g/dL DAYANA Comment:Testing performed by : [address] [address] Alk phos 391(H) 40 - 130 Units/L DAYANA Comment:Testing performed by : [address] [address] ALT 15 7 - 45 Units/L DAYANA Comment:Testing performed by : [address] [address] AST 29 10 - 45 Units/L DAYANA Comment:Testing performed by : [address] [address] Blood 11/20/2024 5:33 AM OLERICULTURIST 11/20/2024 5:56 AM OLERICULTURIST Ivan Vargas MD LAB BLOOD ORDERABLES Final Re sult Performing Organization Address City/State/[facility] Co de Phone Number DAYANA [address] [place] [address] * (ABNORMAL) POCT glucose (11/19/2024 8:57 PM OLERICULTURIST) Glucose, POC 254(H) 70 - 199 mg/dL Comment:Testing performed by : [address] [address] Glucose comment 1 Use This Result DAYANA Comment:Testing performed by : [address] [address] Blood 11/19/2024 8:57 PM OLERICULTURIST 11/19/2024 8:57 PM OLERICULTURIST us Joe Herron MD LAB POCT ORDERABLES - DEVICE Final Result Performing Organization Address [facility] Co de Phone Number DAYANA [address] [address] * (ABNORMAL) POCT glucose (11/19/2024 5:10 PM OLERICULTURIST) Glucose, POC 225(H) 70 - 199 mg/dL Comment:Testing performed by : [address] [address] Blood 11/19/2024 5:10 PM OLERICULTURIST 11/19/2024 5:10 PM OLERICULTURIST us Joe Herron MD LAB POCT ORDERABLES - DEVICE Final Result Performing Organization Address [facility] Co de Phone Number [address] [address] * POCT glucose (11/19/2024 12:24 PM OLERICULTURIST) Glucose, POC 191 70 - 199 mg/dL Comment:Testing performed by : [address] [address] Blood 11/19/2024 12:2 4 PM OLERICULTURIST 11/19/2024 12:24 PM OLERICULTURIST Joe Herron MD LAB POCT ORDERABLES - DEVICE Final Result Performing Organization Address [facility] Co de Phone Number DAYANA [address] [address] * POCT glucose (11/19/2024 11:36 AM OLERICULTURIST) Glucose, POC 181 70 - 199 mg/dL Comment:Testing performed by : [address] [address] Blood 11/19/2024 11:3 6 AM OLERICULTURIST 11/19/2024 11:36 AM OLERICULTURIST Joe Herron MD LAB POCT ORDERABLES - DEVICE Final Result Performing Organization Address [facility] de Phone Number MARY ALICE[address] [address] * POCT glucose (11/19/2024 8:22 AM OLERICULTURIST) Glucose, POC 163 70 - 199 mg/dL Comment:Testing performed by : [address] [address] Glucose comment 1 Use This Result DAYANA Comment:Testing performed by : [address] [address] Blood 11/19/2024 8:22 AM OLERICULTURIST 11/19/2024 8:22 AM OLERICULTURIST Joe eHrron MD LAB POCT ORDERABLES - DEVICE Final Result Performing Organization Address [facility] Co de Phone Number MARY ALICE[address] [address] * (ABNORMAL) eGFR (11/19/2024 6:23 AM OLERICULTURIST) eGFR 28(L) >=60 mL/min/1. 73 m2 Comment: [...] was last reviewed 2021. Testing performed by: [address] [address] Blood 11/19/2024 6:23 AM OLERICULTURIST 11/19/2024 6:31 AM OLERICULTURIST us Ivan Vargas MD LAB BLOOD ORDERABLES Final Re sult DAYANA [address] [facility] [place] [address] * (ABNORMAL) Differential, auto (11/19/2024 6:23 AM OLERICULTURIST) Neutrophil abs 3.7 1.5 - 6.5 K/cumm Comment:Testing performed by : [address] [address] Imm gran abs 0.1 0.0 - 0.1 K/cumm DAYANA Comment:Testing performed by : [address] [address] Lymphocyte abs 1.1 0.8 - 3.3 K/cumm DAYANA Comment:Testing performed by : [address] [address] Monocyte abs 1.0(H) 0.2 - 0.8 K/cumm DAYANA Comment:Testing performed by : [address] [address] Eosinophil abs 1.1(H) 0.0 - 0.5 K/cumm [facility] Comment:Testing performed by : [address] [address] Basophil abs 0.1 0.0 - 0.1 K/cumm DAYANA Comment:Testing performed by : [address] [address] Neutrophil pct 52.7 % [facility] Comment: Interpretive Data Percent cell count reference ranges are not reported, since discordance with absolute values may lead to misinterpretation of CBC data. Current Interpretive Data was last revised on 2018. Testing performed by: [address] [address] Imm gran pct 1.1 % [facility] Comment: Interpretive Data Percent cell count reference ranges are not reported, since discordance with absolute values may lead to misinterpretation of CBC data. Current Interpretive Data was last revised on 2018. Testing performed by: [address] [address] Lymphocyte pct 15.8 % [facility] Comment: Interpretive Data Percent cell count reference ranges are not reported, since discordance with absolute values may lead to misinterpretation of CBC data. Current Interpretive Data was last revised on 2018. Testing performed by: [address] [address] Monocyte pct 14.2 % [facility] Comment: Interpretive Data Percent cell count reference ranges are not reported, since discordance with absolute values may lead to misinterpretation of CBC data. Current Interpretive Data was last revised on 2018. Testing performed by: [address] [address] Eosinophil pct 15.2 % [facility] Comment: Interpretive Data Percent cell count reference ranges are not reported, since discordance with absolute values may lead to misinterpretation of CBC data. Current Interpretive Data was last revised on 2018. Testing performed by: [address] [address] Basophil pct 1.0 % [facility] Comment: Interpretive Data Percent cell count reference ranges are not reported, since discordance with absolute values may lead to misinterpretation of CBC data. Current Interpretive Data was last revised on 2018. Testing performed by: [address] [address] Blood 11/19/2024 6:23 AM OLERICULTURIST 11/19/2024 6:31 AM OLERICULTURIST us Ivan Vargas MD LAB BLOOD ORDERABLES Final Re sult DAYANA [address] [facility] [place] [address] * (ABNORMAL) CBC with auto differential (11/19/2024 6:23 AM OLERICULTURIST) WBC 7.0 3.8 - 9.9 K/cumm Comment:Testing performed by : [address] [address] Hgb 8.9(L) 11.9 - 15.5 g/dL DAYANA Comment:Testing performed by : [address] [address] Hct 28.1(L) 35.6 - 45.5 % DAYANA Comment:Testing performed by : [address] [address] Plt 268 150 - 400 K/cumm DAYANA Comment:Testing performed by : [address] [address] MPV 11.2 9.1 - 12.3 fL DAYANA Comment:Testing performed by : [address] [address] RBC 2.75(L) 3.90 - 5.20 M/cumm DAYANA Comment:Testing performed by : [address] [address] MCV 102.2(H) 81.3 - 96.4 fL DAYANA Comment:Testing performed by : [address] [address] MCH 32.4 27.1 - 33.3 pg DAYANA CARPIO Comment:Testing performed by : [facility], [address] [place] [address]., [address] MCHC 31.7(L) 32.3 - 35.7 g/dL DAYANA CARPIO Comment:Testing performed by : [address] [address] RDW CV 16.5(H) 11.1 - 14.9 % DAYANA CARPIO Comment:Testing performed by : [address] [address] RDW SD 60.4(H) 35.7 - 48.1 fL DAYANA CARPIO Comment:Testing performed by : [address] [address] NRBC abs 0.00 0.00 - 0.01 K/cumm DAYANA CARPIO Comment:Testing performed by : [address] [address] Blood 11/19/2024 6:23 AM OLERICULTURIST 11/19/2024 6:31 AM OLERICULTURIST us Ivan Vargas MD LAB BLOOD ORDERABLES Final Re sult Performing Organization Address City/[facility]/ZIP Co de Phone Number DAYANA [address] [place] [address] * Ammonia (11/19/2024 6:23 AM OLERICULTURIST) Ammonia 24 <=50 mcmol/L Comment: Please note on 02/21/2024 the unit of measure changed from mcg/dL to mcmol/L. Current Interpretive Data was last revised on 2024. Testing performed by: [address] [address] Blood 11/19/2024 6:23 AM OLERICULTURIST 11/19/2024 6:27 AM OLERICULTURIST Ivan Vargas MD LAB BLOOD ORDERABLES Final Re sult Performing Organization Address City/[facility]/ZIP Co de Phone Number DAYANA [address] [place] [address] * (ABNORMAL) Comprehensive metabolic panel (11/19/2024 6:23 AM OLERICULTURIST) Sodium 133(L) 135 - 145 mmol/L Comment:Testing performed by : [address] [address] Potassium, pl 3.6 3.3 - 4.9 mmol/L DAYANA Comment:Testing performed by : [address] [address] Chloride 92(L) 97 - 110 mmol/L [facility] Comment:Testing performed by : [address], [place]., [address] CO2 27 22 - 32 mmol/L DAYANA Comment:Testing performed by : [address] [address] Anion gap 14 2 - 15 mmol/L [facility] Comment:Testing performed by : [address] [address] BUN 46(H) 6 - 25 mg/dL [facility] Comment:Testing performed by : [address] [address] Creatinine 1.90(H) 0.60 - 1.10 mg/dL [facility] Comment:Testing performed by : [address] [address] Glucose 151 70 - 199 mg/dL [facility] Comment: Interpretive Data Fasting glucose >/= 126 [...] was last revised 2022. Testing performed by: [address] [address] Calcium 10.2 8.5 - 10.3 mg/dL DAYANA Comment:Testing performed by : [address] [address] Bilirubin, total 1.4(H) 0.1 - 1.2 mg/dL DAYANA CARPIO Comment:Testing performed by : [address] [address] Protein, pl 6.3(L) 6.5 - 8.5 g/dL DAYANA CARPIO Comment:Testing performed by : [address], [place]., [address] Albumin 3.6 3.5 - 5.0 g/dL DAYANA Comment:Testing performed by : [address], [place]., [address] Alk phos 390(H) 40 - 130 Units/L DAYANA Comment:Testing performed by : [address] [address] ALT 17 7 - 45 Units/L DAYANA Comment:Testing performed by : [address] [address] AST 31 10 - 45 Units/L DAYANA Comment:Testing performed by : [address] [address] Blood 11/19/2024 6:23 AM OLERICULTURIST 11/19/2024 6:31 AM OLERICULTURIST us Ivan Vargas MD LAB BLOOD ORDERABLES Final Re sult DAYANA [address] [facility] [place] [address] * (ABNORMAL) POCT glucose (11/18/2024 8:46 PM OLERICULTURIST) [facility] Glucose, POC 234(H) 70 - 199 mg/dL Comment:Testing performed by : [address] [address] Glucose comment 1 Use This Result DAYANA CARPIO Comment:Testing performed by : [address] [address] Glucose comment 2 RN/MD Notified DAYANA CARPIO Comment:Testing performed by : [address] [address] Blood 11/18/2024 8:46 PM OLERICULTURIST 11/18/2024 8:46 PM OLERICULTURIST us Ivan Vargas MD LAB POCT ORDERABLES - DEVICE Final Result DAYANA [address] [facility] [place] [address] * CT Abdomen Pelvis WO Contrast (11/18/2024 8:34 PM OLERICULTURIST) Anatomical Region Laterality Modality Body N/A Computed Tomogra phy 11/18/2024 9:07 PM OLERICULTURIST Narrative 11/18/2024 9:19 PM OLERICULTURIST EXAM DESCRIPTION: CT ABDOMEN PELVIS WO CONTRAST [...] Pedro Alexis M.D. KT: KT Report ID: [id number] [place] Location: [place] [address] Procedure Note Pedro Alexis MD - 11/18/2024 [...] Pedro Alexis M.D. KT: KIM Report ID: [id number] [place] Location: [place] [address] us Ivan Vargas MD IMG CT PROCEDURES Final Resul t * (ABNORMAL) POCT glucose (11/18/2024 5:49 PM OLERICULTURIST) [facility] Signature Glucose, POC 216(H) 70 - 199 mg/dL Comment:Testing performed by : [address] [address] Glucose comment 1 RN/MD Notified DAYANA CARPIO Comment:Testing performed by : [address] [address] Glucose comment 2 Use This Result DAYANA CARPIO Comment:Testing performed by : [address] [address] Blood 11/18/2024 5:49 PM OLERICULTURIST 11/18/2024 5:49 PM OLERICULTURIST Ivan Vargas MD LAB POCT ORDERABLES - DEVICE Final Result CERNER [address] [place] [address] * (ABNORMAL) POCT glucose (11/18/2024 12:43 PM OLERICULTURIST) [facility] Glucose, POC 232(H) 70 - 199 mg/dL Comment:Testing performed by : [address] [address] Glucose comment 1 Use This Result DAYANA Comment:Testing performed by : [address] [address] Blood 11/18/2024 12:4 3 PM OLERICULTURIST 11/18/2024 12:43 PM OLERICULTURIST Ivan Vargas MD LAB POCT ORDERABLES - DEVICE Final Result Performing Organization Address [facility] Co de Phone Number [address] [address] * POCT glucose (11/18/2024 7:55 AM OLERICULTURIST) [facility] Glucose, POC 145 70 - 199 mg/dL Comment:Testing performed by : [address] [address] Glucose comment 1 Use This Result DAYANA Comment:Testing performed by : [address] [address] Glucose comment 2 RN/MD Notified DAYANA Comment:Testing performed by : [address] [address] Blood 11/18/2024 7:55 AM OLERICULTURIST 11/18/2024 7:55 AM OLERICULTURIST Ivan Vargas MD LAB POCT ORDERABLES - DEVICE Final Result [address] [address] * (ABNORMAL) Differential, auto (11/18/2024 6:35 AM OLERICULTURIST) [facility] Neutrophil abs 3.7 1.5 - 6.5 K/cumm Comment:Testing performed by : [address], [place]., [address] Imm gran abs 0.1 0.0 - 0.1 K/cumm [facility] Comment:Testing performed by : [address], [place]., [address] Lymphocyte abs 1.0 0.8 - 3.3 K/cumm [facility] Comment:Testing performed by : [address] [address] Monocyte abs 1.2(H) 0.2 - 0.8 K/cumm [facility] Comment:Testing performed by : [address] [address] Eosinophil abs 1.0(H) 0.0 - 0.5 K/cumm [facility] Comment:Testing performed by : [address] [address] Basophil abs 0.1 0.0 - 0.1 K/cumm [facility] Comment:Testing performed by : [address] [address] Neutrophil pct 52.9 % [facility] Comment: Interpretive Data Percent cell count reference ranges are not reported, since discordance with absolute values may lead to misinterpretation of CBC data. Current Interpretive Data was last revised on 2018. Testing performed by: [address] [address] Imm gran pct 1.1 % [facility] Comment: Interpretive Data Percent cell count reference ranges are not reported, since discordance with absolute values may lead to misinterpretation of CBC data. Current Interpretive Data was last revised on 2018. Testing performed by: [address] [address] Lymphocyte pct 14.4 % [facility] Comment: Interpretive Data Percent cell count reference ranges are not reported, since discordance with absolute values may lead to misinterpretation of CBC data. Current Interpretive Data was last revised on 2018. Testing performed by: [address] [address] Monocyte pct 17.1 % [facility] Comment: Interpretive Data Percent cell count reference ranges are not reported, since discordance with absolute values may lead to misinterpretation of CBC data. Current Interpretive Data was last revised on 2018. Testing performed by: [address] [address] Eosinophil pct 13.5 % DAYANA CARPIO Comment: Interpretive Data Percent cell count reference ranges are not reported, since discordance with absolute values may lead to misinterpretation of CBC data. Current Interpretive Data was last revised on 2018. Testing performed by: [address] [address] Basophil pct 1.0 % DAYANA CARPIO Comment: Interpretive Data Percent cell count reference ranges are not reported, since discordance with absolute values may lead to misinterpretation of CBC data. Current Interpretive Data was last revised on 2018. Testing performed by: [address] [address] Blood 11/18/2024 6:35 AM OLERICULTURIST 11/18/2024 6:57 AM OLERICULTURIST us Ivan Vargas MD LAB BLOOD ORDERABLES Final Re sult DAYANA [address] [facility] [place] [address] * (ABNORMAL) CBC with auto differential (11/18/2024 6:35 AM OLERICULTURIST) Pathologist [facility] WBC 7.1 3.8 - 9.9 K/cumm Comment:Testing performed by : [address] [address] Hgb 9.0(L) 11.9 - 15.5 g/dL DAYANA CARPIO Comment:Testing performed by : [address] [address] Hct 28.2(L) 35.6 - 45.5 % DAYANA CARPIO Comment:Testing performed by : [address] [address] Plt 247 150 - 400 K/cumm DAYANA CARPIO Comment:Testing performed by : [address] [place]., [address] MPV 11.1 9.1 - 12.3 fL DAYANA Comment:Testing performed by : [address] [address] RBC 2.73(L) 3.90 - 5.20 M/cumm DAYANA CARPIO Comment:Testing performed by : [address], [address] MCV 103.3(H) 81.3 - 96.4 fL DAYANA Comment:Testing performed by : [address] [address] MCH 33.0 27.1 - 33.3 pg DAYANA Comment:Testing performed by : [address], [address] MCHC 31.9(L) 32.3 - 35.7 g/dL DAYANA Comment:Testing performed by : [address], [address] RDW CV 16.6(H) 11.1 - 14.9 % DAYANA Comment:Testing performed by : [address], [address] RDW SD 62.6(H) 35.7 - 48.1 fL DAYANA Comment:Testing performed by : [address], [address] NRBC abs 0.00 0.00 - 0.01 K/cumm DAYANA Comment:Testing performed by : [address], [address] Blood 11/18/2024 6:35 AM OLERICULTURIST 11/18/2024 6:57 AM OLERICULTURIST us Ivan Vargas MD LAB BLOOD ORDERABLES Final Re sult DAYANA [address] [facility] [place] [address] * (ABNORMAL) eGFR (11/18/2024 5:52 AM OLERICULTURIST) eGFR 28(L) >=60 mL/min/1. 73 m2 Comment: [...] was last reviewed 2021. Testing performed by: [address] [address] Blood 11/18/2024 5:52 AM OLERICULTURIST 11/18/2024 6:24 AM OLERICULTURIST Ivan Vargas MD LAB BLOOD ORDERABLES Final Re sult Performing Organization Address [facility] Co de Phone Number [address] [place] [address] * Folate (11/18/2024 5:52 AM OLERICULTURIST) Folic acid >20.0 >=5.0 ng/mL Comment:Testing performed by : [address] [address] Blood 11/18/2024 5:52 AM OLERICULTURIST 11/18/2024 6:24 AM OLERICULTURIST Ivan Vargas MD LAB BLOOD ORDERABLES Final Re sult Performing Organization Address City/[facility]/ZIP Co de Phone Number [address] [address] * Vitamin B12 (11/18/2024 5:52 AM OLERICULTURIST) Pathologist [facility] Vitamin B12 910 230 - 1,250 pg/mL Comment:Testing performed by : [address] [address] Blood 11/18/2024 5:52 AM OLERICULTURIST 11/18/2024 6:24 AM OLERICULTURIST Ivan Vargas MD LAB BLOOD ORDERABLES Final Re sult [facility] [address] [facility] Department [place] [address] * (ABNORMAL) Comprehensive metabolic panel (11/18/2024 5:52 AM OLERICULTURIST) Pathologist [facility] Sodium 132(L) 135 - 145 mmol/L Comment:Testing performed by : [address] [address] Potassium, pl 3.9 3.3 - 4.9 mmol/L DAYANA Comment:Testing performed by : [address] [address] Chloride 92(L) 97 - 110 mmol/L DAYANA Comment:Testing performed by : [address] [address] CO2 27 22 - 32 mmol/L DAYANA Comment:Testing performed by : [address] [address] Anion gap 13 2 - 15 mmol/L DAYANA Comment:Testing performed by : [address] [address] BUN 43(H) 6 - 25 mg/dL DAYANA Comment:Testing performed by : [address] [address] Creatinine 1.90(H) 0.60 - 1.10 mg/dL DAYANA Comment:Testing performed by : [address] [address] Glucose 140 70 - 199 mg/dL DAYANA [...] was last revised 2022. Testing performed by: [address] [address] Calcium 10.0 8.5 - 10.3 mg/dL DAYANA Comment:Testing performed by : [address] [address] Bilirubin, total 1.5(H) 0.1 - 1.2 mg/dL DAYANA Comment:Testing performed by : [address] [address] Protein, pl 6.3(L) 6.5 - 8.5 g/dL DAYANA Comment:Testing performed by : [address] [address] Albumin 3.8 3.5 - 5.0 g/dL DAYANA Comment:Testing performed by : [address] [address] Alk phos 369(H) 40 - 130 Units/L DAYANA Comment:Testing performed by : [address] [address] ALT 17 7 - 45 Units/L DAYANA Comment:Testing performed by : [address] [address] AST 36 10 - 45 Units/L DAYANA Comment:Testing performed by : [address] [address] Blood 11/18/2024 5:52 AM OLERICULTURIST 11/18/2024 6:24 AM OLERICULTURIST us Ivan Vargas MD LAB BLOOD ORDERABLES Final Re sult DAYANA [address] Department [place] [address] * (ABNORMAL) POCT glucose (11/17/2024 8:52 PM OLERICULTURIST) Glucose, POC 275(H) 70 - 199 mg/dL Comment:Testing performed by : [address] [address] Blood 11/17/2024 8:52 PM OLERICULTURIST 11/17/2024 8:52 PM OLERICULTURIST Ivan Vargas MD LAB POCT ORDERABLES - DEVICE Final Result Performing Organization Address [facility]/ZIP Co de Phone Number [address] [address] * (ABNORMAL) POCT glucose (11/17/2024 6:05 PM OLERICULTURIST) Glucose, POC 280(H) 70 - 199 mg/dL Comment:Testing performed by : [address] [address] Glucose comment 1 Use This Result DAYANA Comment:Testing performed by : [address] [address] Glucose comment 2 RN/MD Notified DAYANA Comment:Testing performed by : [address] [address] Blood 11/17/2024 6:05 PM OLERICULTURIST 11/17/2024 6:05 PM OLERICULTURIST Ivan Vargas MD LAB POCT ORDERABLES - DEVICE Final Result Performing Organization Address [facility]/ZIP Co de Phone Number [address] [address] * (ABNORMAL) POCT glucose (11/17/2024 1:08 PM OLERICULTURIST) Glucose, POC 236(H) 70 - 199 mg/dL Comment:Testing performed by : [address] [address] Glucose comment 1 Use This Result DAYANA Comment:Testing performed by : [facility], [address] [place] [address]., [address] Glucose comment 2 RN/MD Notified DAYANA Comment:Testing performed by : [address] [address] Blood 11/17/2024 1:08 PM OLERICULTURIST 11/17/2024 1:08 PM OLERICULTURIST Ivan Vargas MD LAB POCT ORDERABLES - DEVICE Final Result Performing Organization Address [facility] de Phone Number [address] [place] [address] * POCT glucose (11/17/2024 9:20 AM OLERICULTURIST) [facility] Glucose, POC 146 70 - 199 mg/dL Comment:Testing performed by : [address] [address] Glucose comment 1 Use This Result DAYANA Comment:Testing performed by : [facility], [address] [place] [address]., [address] Glucose comment 2 RN/MD Notified DAYANA Comment:Testing performed by : [address] [address] Blood 11/17/2024 9:20 AM OLERICULTURIST 11/17/2024 9:20 AM OLERICULTURIST Ivan Vargas MD LAB POCT ORDERABLES - DEVICE Final Result Performing Organization Address [facility] Co de Phone Number [address] [place] [address] * (ABNORMAL) eGFR (11/17/2024 7:01 AM OLERICULTURIST) [facility] eGFR 28(L) >=60 mL/min/1. 73 m2 [...] was last reviewed 2021. Testing performed by: [address] [address] Blood 11/17/2024 7:01 AM OLERICULTURIST 11/17/2024 7:33 AM OLERICULTURIST us Ivan Vargas MD LAB BLOOD ORDERABLES Final Re sult DAYANA [address] [facility] [place] [address] * (ABNORMAL) Differential, auto (11/17/2024 7:01 AM OLERICULTURIST) Neutrophil abs 3.8 1.5 - 6.5 K/cumm Comment:Testing performed by : [address] [address] Imm gran abs 0.1 0.0 - 0.1 K/cumm DAYANA Comment:Testing performed by : [address] [address] Lymphocyte abs 0.8 0.8 - 3.3 K/cumm DAYANA Comment:Testing performed by : [address] [address] Monocyte abs 1.0(H) 0.2 - 0.8 K/cumm DAYANA Comment:Testing performed by : [address] [address] Eosinophil abs 0.7(H) 0.0 - 0.5 K/cumm DAYANA Comment:Testing performed by : [address] [address] Basophil abs 0.1 0.0 - 0.1 K/cumm DAYANA Comment:Testing performed by : [address] [address] Neutrophil pct 58.2 % [facility] Comment: Interpretive Data Percent cell count reference ranges are not reported, since discordance with absolute values may lead to misinterpretation of CBC data. Current Interpretive Data was last revised on 2018. Testing performed by: [address] [address] Imm gran pct 0.9 % [facility] Comment: Interpretive Data Percent cell count reference ranges are not reported, since discordance with absolute values may lead to misinterpretation of CBC data. Current Interpretive Data was last revised on 2018. Testing performed by: [address] [address] Lymphocyte pct 12.4 % [facility] Comment: Interpretive Data Percent cell count reference ranges are not reported, since discordance with absolute values may lead to misinterpretation of CBC data. Current Interpretive Data was last revised on 2018. Testing performed by: [address] [address] Monocyte pct 15.8 % [facility] Comment: Interpretive Data Percent cell count reference ranges are not reported, since discordance with absolute values may lead to misinterpretation of CBC data. Current Interpretive Data was last revised on 2018. Testing performed by: [address] [address] Eosinophil pct 11.5 % [facility] Comment: Interpretive Data Percent cell count reference ranges are not reported, since discordance with absolute values may lead to misinterpretation of CBC data. Current Interpretive Data was last revised on 2018. Testing performed by: [address] [address] Basophil pct 1.2 % [facility] Comment: Interpretive Data Percent cell count reference ranges are not reported, since discordance with absolute values may lead to misinterpretation of CBC data. Current Interpretive Data was last revised on 2018. Testing performed by: [address] [place] [address] Blood 11/17/2024 7:01 AM OLERICULTURIST 11/17/2024 7:34 AM OLERICULTURIST us Ivan aVrgas MD LAB BLOOD ORDERABLES Final Re sult [facility] [address] [facility] [place] [address] * (ABNORMAL) CBC with auto differential (11/17/2024 7:01 AM OLERICULTURIST) WBC 6.5 3.8 - 9.9 K/cumm Comment:Testing performed by : [address] [address] Hgb 8.9(L) 11.9 - 15.5 g/dL DAY[facility] Comment:Testing performed by : [address] [address] Hct 27.6(L) 35.6 - 45.5 % DAYANA Comment:Testing performed by : [address] [address] Plt 227 150 - 400 K/cumm DAYANA Comment:Testing performed by : [address] [address] MPV 11.2 9.1 - 12.3 fL DAYANA Comment:Testing performed by : [address] [address] RBC 2.70(L) 3.90 - 5.20 M/cumm DAYANA Comment:Testing performed by : [address] [address] MCV 102.2(H) 81.3 - 96.4 fL DAYANA Comment:Testing performed by : [address] [address] MCH 33.0 27.1 - 33.3 pg DAYANA CARPIO Comment:Testing performed by : [address] [address] MCHC 32.2(L) 32.3 - 35.7 g/dL DAYANA CARPIO Comment:Testing performed by : [address] [address] RDW CV 16.6(H) 11.1 - 14.9 % DAYANA CARPIO Comment:Testing performed by : [address] [address] RDW SD 60.4(H) 35.7 - 48.1 fL DAYANA CARPIO Comment:Testing performed by : [address] [address] NRBC abs 0.00 0.00 - 0.01 K/cumm DAYANA CARPIO Comment:Testing performed by : [address] [address] Blood 11/17/2024 7:01 AM OLERICULTURIST 11/17/2024 7:34 AM OLERICULTURIST us Ivan Vargas MD LAB BLOOD ORDERABLES Final Re sult [facility] [address] [facility] [place] [address] * (ABNORMAL) Comprehensive metabolic panel (11/17/2024 7:01 AM OLERICULTURIST) Sodium 135 135 - 145 mmol/L Comment:Testing performed by : [address] [address] Potassium, pl 3.3 3.3 - 4.9 mmol/L DAYANA CARPIO Comment:Testing performed by : [address] [address] Chloride 92(L) 97 - 110 mmol/L DAY[facility] CARPIO Comment:Testing performed by : [address] [address] CO2 29 22 - 32 mmol/L DAYANA CARPIO Comment:Testing performed by : [address] [address] Anion gap 14 2 - 15 mmol/L DAYANA CARPIO Comment:Testing performed by : [address] [address] BUN 40(H) 6 - 25 mg/dL DAY[facility] CARPIO Comment:Testing performed by : [address] [address] Creatinine 1.90(H) 0.60 - 1.10 mg/dL DAYANA Comment:Testing performed by : [address] [address] Glucose 146 70 - 199 mg/dL [facility] Comment: Interpretive Data Fasting glucose >/= 126 [...] was last revised 2022. Testing performed by: [address] [address] Calcium 9.3 8.5 - 10.3 mg/dL DAY[facility] Comment:Testing performed by : [address] [address] Bilirubin, total 1.6(H) 0.1 - 1.2 mg/dL [facility] Comment:Testing performed by : [address] [address] Protein, pl 6.1(L) 6.5 - 8.5 g/dL [facility] Comment:Testing performed by : [address] [address] Albumin 3.8 3.5 - 5.0 g/dL [facility] Comment:Testing performed by : [address] [address] Alk phos 309(H) 40 - 130 Units/L DAYANA Comment:Testing performed by : [address] [address] ALT 14 7 - 45 Units/L DAY[facility] Comment:Testing performed by : [address] [address] AST 32 10 - 45 Units/L [facility] Comment:Testing performed by : [address] [address] Blood 11/17/2024 7:01 AM OLERICULTURIST 11/17/2024 7:33 AM OLERICULTURIST Ivan Vargas MD LAB BLOOD ORDERABLES Final Re sult Performing Organization Address [facility] Co de Phone Number DAYANA [address] [facility] [place] [address] * (ABNORMAL) POCT glucose (11/16/2024 7:44 PM OLERICULTURIST) Glucose, POC 205(H) 70 - 199 mg/dL Comment:Testing performed by : [address] [address] Glucose comment 1 Use This Result DAYANA Comment:Testing performed by : [address] [address] Glucose comment 2 RN/MD Notified DAYANA Comment:Testing performed by : [address] [address] Blood 11/16/2024 7:44 PM OLERICULTURIST 11/16/2024 7:44 PM OLERICULTURIST Ivan Vargas MD LAB POCT ORDERABLES - DEVICE Final Result Performing Organization Address [facility] Co de Phone Number DAYANA [facility] [place] [address] * POCT glucose (11/16/2024 6:33 PM OLERICULTURIST) Glucose, POC 155 70 - 199 mg/dL Comment:Testing performed by : [address] [address] Glucose comment 1 Use This Result DAYANA Comment:Testing performed by : [address] [address] Glucose comment 2 RN/MD Notified DAY[facility] Comment:Testing performed by : [address] [address] Blood 11/16/2024 6:33 PM OLERICULTURIST 11/16/2024 6:33 PM OLERICULTURIST Ivan Vargas MD LAB POCT ORDERABLES - DEVICE Final Result Performing Organization Address [facility] de Phone Number DAYANA [address] [place] [address] * (ABNORMAL) POCT glucose (11/16/2024 11:54 AM OLERICULTURIST) [facility] Glucose, POC 203(H) 70 - 199 mg/dL Comment:Testing performed by : [address] [address] Glucose comment 1 Use This Result DAYANA Comment:Testing performed by : [address] [address] Glucose comment 2 RN/MD Notified DAYANA Comment:Testing performed by : [address] [address] Blood 11/16/2024 11:5 4 AM OLERICULTURIST 11/16/2024 11:54 AM OLERICULTURIST Ivan Vargas MD LAB POCT ORDERABLES - DEVICE Final Result Performing Organization Address [facility] Co de Phone Number DAYANA [address] [place] [address] * (ABNORMAL) eGFR (11/16/2024 9:56 AM OLERICULTURIST) [facility] eGFR 26(L) >=60 mL/min/1. 73 m2 [...] of Race in Diagnosing Kidney Disease, JASN 202). The CKD-EPI equation should not be used for patients with unstable renal function and has not been validated in children and those over 70. Current interpretive data was last reviewed 2021. Testing performed by: [facility], [address] [place] [address]., [address] Blood 11/16/2024 9:56 AM OLERICULTURIST 11/16/2024 10:30 AM OLERICULTURIST us Ivan Vargas MD LAB BLOOD ORDERABLES Final Re sult [facility] [address] [facility] Department [place] [address] * (ABNORMAL) Differential, auto (11/16/2024 9:56 AM OLERICULTURIST) Neutrophil abs 4.2 1.5 - 6.5 K/cumm Comment:Testing performed by : [address] [address] Imm gran abs 0.1 0.0 - 0.1 K/cumm DAYANA Comment:Testing performed by : [address] [address] Lymphocyte abs 0.5(L) 0.8 - 3.3 K/cumm DAYANA Comment:Testing performed by : [address] [address] Monocyte abs 0.8 0.2 - 0.8 K/cumm DAYANA Comment:Testing performed by : [address] [address] Eosinophil abs 0.6(H) 0.0 - 0.5 K/cumm DAYANA Comment:Testing performed by : [address] [address] Basophil abs 0.1 0.0 - 0.1 K/cumm DAYANA Comment:Testing performed by : [address] [address] Neutrophil pct 67.6 % [facility] Comment: Interpretive Data Percent cell count reference ranges are not reported, since discordance with absolute values may lead to misinterpretation of CBC data. Current Interpretive Data was last revised on 2018. Testing performed by: [address] [address] Imm gran pct 1.0 % [facility] Comment: Interpretive Data Percent cell count reference ranges are not reported, since discordance with absolute values may lead to misinterpretation of CBC data. Current Interpretive Data was last revised on 2018. Testing performed by: [address] [address] Lymphocyte pct 8.2 % [facility] Comment: Interpretive Data Percent cell count reference ranges are not reported, since discordance with absolute values may lead to misinterpretation of CBC data. Current Interpretive Data was last revised on 2018. Testing performed by: [address] [address] Monocyte pct 12.5 % [facility] Comment: Interpretive Data Percent cell count reference ranges are not reported, since discordance with absolute values may lead to misinterpretation of CBC data. Current Interpretive Data was last revised on 2018. Testing performed by: [address] [address] Eosinophil pct 9.6 % [facility] Comment: Interpretive Data Percent cell count reference ranges are not reported, since discordance with absolute values may lead to misinterpretation of CBC data. Current Interpretive Data was last revised on 2018. Testing performed by: [address] [address] Basophil pct 1.1 % [facility] Comment: Interpretive Data Percent cell count reference ranges are not reported, since discordance with absolute values may lead to misinterpretation of CBC data. Current Interpretive Data was last revised on 2018. Testing performed by: [address] [address] Blood 11/16/2024 9:56 AM OLERICULTURIST 11/16/2024 10:29 AM OLERICULTURIST us Ivan Vargas MD LAB BLOOD ORDERABLES Final Re sult [facility] [address] [facility] [place] [address] * (ABNORMAL) CBC with auto differential (11/16/2024 9:56 AM OLERICULTURIST) WBC 6.2 3.8 - 9.9 K/cumm Comment:Testing performed by : [address] [address] Hgb 8.4(L) 11.9 - 15.5 g/dL DAYANA Comment:Testing performed by : [address] [address] Hct 26.7(L) 35.6 - 45.5 % DAYANA Comment:Testing performed by : [address] [address] Plt 216 150 - 400 K/cumm DAYANA Comment:Testing performed by : [address] [address] MPV 11.1 9.1 - 12.3 fL DAYANA Comment:Testing performed by : [address] [address] RBC 2.60(L) 3.90 - 5.20 M/cumm DAYANA Comment:Testing performed by : [address] [address] MCV 102.7(H) 81.3 - 96.4 fL DAYANA Comment:Testing performed by : [address] [address] MCH 32.3 27.1 - 33.3 pg DAYNAA Comment:Testing performed by : [address] [address] MCHC 31.5(L) 32.3 - 35.7 g/dL DAYANA Comment:Testing performed by : [address] [address] RDW CV 16.6(H) 11.1 - 14.9 % DAYANA Comment:Testing performed by : [address], [address] RDW SD 61.2(H) 35.7 - 48.1 fL DAYANA CARPIO Comment:Testing performed by : [address] [address] NRBC abs 0.00 0.00 - 0.01 K/cumm DAYANA CARPIO Comment:Testing performed by : [address] [address] Blood 11/16/2024 9:56 AM OLERICULTURIST 11/16/2024 10:29 AM OLERICULTURIST Ivan Vargas MD LAB BLOOD ORDERABLES Final Re sult Performing Organization Address [facility] Co de Phone Number [address] [facility] [place] [address] * Hemoglobin A1c (11/16/2024 9:56 AM OLERICULTURIST) Hgb A1C 5.4 4.0 - 5.6 % Comment:Testing performed by : [address] [address] Estimated Average Glucose 108 mg/dL DAYANA CARPIO Comment: The ADA recommends reporting an estimated Average Glucose (eAG) with all Hemoglobin A1c results using the equation derived from a study of 507 normal and diabetic adults. Minority populations were underrepresented and children were not included. (Diabetes Care 31:3544-6243, 2008). The eAG is not equivalent to a fasting glucose. Testing performed by: [address] [address] Blood 11/16/2024 9:56 AM OLERICULTURIST 11/16/2024 10:29 AM OLERICULTURIST Ivan Vargas MD LAB BLOOD ORDERABLES Final Re sult Performing Organization Address [facility] Co de Phone Number [facility] [address] [facility] [place] [address] * (ABNORMAL) Comprehensive metabolic panel (11/16/2024 9:56 AM OLERICULTURIST) Sodium 133(L) 135 - 145 mmol/L Comment:Testing performed by : [facility], [address] [place] [address]., [address] Potassium, pl 3.1(L) 3.3 - 4.9 mmol/L [facility] Comment:Testing performed by : [address], [place]., [address] Chloride 92(L) 97 - 110 mmol/L DAYANA Comment:Testing performed by : [address], [place]., [address] CO2 27 22 - 32 mmol/L [facility] Comment:Testing performed by : [address], [place]., [address] Anion gap 14 2 - 15 mmol/L [facility] Comment:Testing performed by : [address], [place]., [address] BUN 39(H) 6 - 25 mg/dL [facility] Comment:Testing performed by : [address] [address] Creatinine 2.04(H) 0.60 - 1.10 mg/dL [facility] Comment:Testing performed by : [address] [address] Glucose 136 70 - 199 mg/dL [facility] Comment: Interpretive Data Fasting glucose >/= 126 [...] was last revised 2022. Testing performed by: [address] [address] Calcium 8.9 8.5 - 10.3 mg/dL [facility] Comment:Testing performed by : [address] [address] Bilirubin, total 1.7(H) 0.1 - 1.2 mg/dL [facility] Comment:Testing performed by : [address] [address] Protein, pl 6.6 6.5 - 8.5 g/dL DAYANA CARPIO Comment:Testing performed by : [address] [address] Albumin 4.2 3.5 - 5.0 g/dL DAYANA CARPIO Comment:Testing performed by : [address], [place]., [address] Alk phos 247(H) 40 - 130 Units/L DAYANA CARPIO Comment:Testing performed by : [address], [place]., [address] ALT 12 7 - 45 Units/L DAYANA Comment:Testing performed by : [address] [address] AST 30 10 - 45 Units/L DAYANA CARPIO Comment:Testing performed by : [address] [address] Blood 11/16/2024 9:56 AM OLERICULTURIST 11/16/2024 10:30 AM OLERICULTURIST Ivan Vargas MD LAB BLOOD ORDERABLES Final Re sult [facility] [address] [facility] [place], [place] [id number] * POCT glucose (11/16/2024 8:53 AM OLERICULTURIST) [facility] Glucose, POC 146 70 - 199 mg/dL Comment:Testing performed by : [address] [address] Glucose comment 1 Use This Result DAYANA CARPIO Comment:Testing performed by : [address] [address] Glucose comment 2 RN/MD Notified DAYANA CARPIO Comment:Testing performed by : [address] [address] Blood 11/16/2024 8:53 AM OLERICULTURIST 11/16/2024 8:53 AM OLERICULTURIST Ivan Vargas MD LAB POCT ORDERABLES - DEVICE Final Result Performing Organization Address City/[facility]/ZIP Co de Phone Number DAYANA [address] [address] * POCT glucose (11/16/2024 12:30 AM OLERICULTURIST) Glucose, POC 156 70 - 199 mg/dL Comment:Testing performed by : [address] [address] Glucose comment 1 Use This Result DAYANA Comment:Testing performed by : [address] [address] Glucose comment 2 RN/MD Notified DAYANA Comment:Testing performed by : [address] [address] Blood 11/16/2024 12:3 0 AM OLERICULTURIST 11/16/2024 12:30 AM OLERICULTURIST Ivan Vargas MD LAB POCT ORDERABLES - DEVICE Final Result Performing Organization Address [facility] Co de Phone Number DAYANA [address] [address] * POCT glucose (11/15/2024 8:35 PM OLERICULTURIST) Glucose, POC 196 70 - 199 mg/dL Comment:Testing performed by : [address] [address] Glucose comment 1 Use This Result DAYANA Comment:Testing performed by : [address] [address] Glucose comment 2 RN/MD Notified DAYANA Comment:Testing performed by : [address] [address] Blood 11/15/2024 8:35 PM OLERICULTURIST 11/15/2024 8:35 PM OLERICULTURIST Ivan Vargas MD LAB POCT ORDERABLES - DEVICE Final Result Performing Organization Address City/[facility]/ZIP Co de Phone Number DAYANA [address] [place] [address] * POCT glucose (11/15/2024 5:29 PM OLERICULTURIST) Glucose, POC 152 70 - 199 mg/dL Comment:Testing performed by : [address] [address] Blood 11/15/2024 5:29 PM OLERICULTURIST 11/15/2024 5:29 PM OLERICULTURIST Ivan Vargas MD LAB POCT ORDERABLES - DEVICE Final Result DAYANA [address] [address] * POCT glucose (11/15/2024 1:28 PM OLERICULTURIST) Glucose, POC 154 70 - 199 mg/dL Comment:Testing performed by : [address] [address] Blood 11/15/2024 1:28 PM OLERICULTURIST 11/15/2024 1:28 PM OLERICULTURIST Ivan Vargas MD LAB POCT ORDERABLES - DEVICE Final Result Performing Organization Address City/[facility]/ZIP Co de Phone Number DAYANA [address] [place] [address] * POCT glucose (11/15/2024 8:56 AM OLERICULTURIST) Glucose, POC 130 70 - 199 mg/dL Comment:Testing performed by : [address] [address] Blood 11/15/2024 8:56 AM OLERICULTURIST 11/15/2024 8:56 AM OLERICULTURIST us Ivan Vargas MD LAB POCT ORDERABLES - DEVICE Final Result DAY[facility] [address] [place] [address] * (ABNORMAL) eGFR (11/15/2024 4:35 AM OLERICULTURIST) eGFR 24(L) >=60 mL/min/1. 73 m2 Comment: [...] was last reviewed 2021. Testing performed by: [address] [address] Blood 11/15/2024 4:35 AM OLERICULTURIST 11/15/2024 6:10 AM OLERICULTURIST us Ivan Vargas MD LAB BLOOD ORDERABLES Final Re sult [facility] [address] [facility] [place] [address] * (ABNORMAL) Differential, auto (11/15/2024 4:35 AM OLERICULTURIST) Pathologist [facility] Neutrophil abs 5.0 1.5 - 6.5 K/cumm Comment:Testing performed by : [address] [address] Imm gran abs 0.1 0.0 - 0.1 K/cumm DAYANA CARPIO Comment:Testing performed by : [address] [address] Lymphocyte abs 0.7(L) 0.8 - 3.3 K/cumm DAYANA Comment:Testing performed by : [address] [address] Monocyte abs 1.0(H) 0.2 - 0.8 K/cumm DAYANA Comment:Testing performed by : [address], [place]., [address] Eosinophil abs 0.6(H) 0.0 - 0.5 K/cumm [facility] Comment:Testing performed by : [address], [place]., [address] Basophil abs 0.1 0.0 - 0.1 K/cumm [facility] Comment:Testing performed by : [address] [address] Neutrophil pct 67.6 % [facility] Comment: Interpretive Data Percent cell count reference ranges are not reported, since discordance with absolute values may lead to misinterpretation of CBC data. Current Interpretive Data was last revised on 2018. Testing performed by: [address] [address] Imm gran pct 0.8 % [facility] Comment: Interpretive Data Percent cell count reference ranges are not reported, since discordance with absolute values may lead to misinterpretation of CBC data. Current Interpretive Data was last revised on 2018. Testing performed by: [address] [address] Lymphocyte pct 8.8 % [facility] Comment: Interpretive Data Percent cell count reference ranges are not reported, since discordance with absolute values may lead to misinterpretation of CBC data. Current Interpretive Data was last revised on 2018. Testing performed by: [address] [address] Monocyte pct 13.0 % [facility] Comment: Interpretive Data Percent cell count reference ranges are not reported, since discordance with absolute values may lead to misinterpretation of CBC data. Current Interpretive Data was last revised on 2018. Testing performed by: [address] [address] Eosinophil pct 8.7 % [facility] Comment: Interpretive Data Percent cell count reference ranges are not reported, since discordance with absolute values may lead to misinterpretation of CBC data. Current Interpretive Data was last revised on 2018. Testing performed by: [address] [address] Basophil pct 1.1 % [facility] Comment: Interpretive Data Percent cell count reference ranges are not reported, since discordance with absolute values may lead to misinterpretation of CBC data. Current Interpretive Data was last revised on 2018. Testing performed by: [address] [address] Blood 11/15/2024 4:35 AM OLERICULTURIST 11/15/2024 6:15 AM OLERICULTURIST us Ivan Vargas MD LAB BLOOD ORDERABLES Final Re sult [facility] [place] [address] * (ABNORMAL) CBC with auto differential (11/15/2024 4:35 AM OLERICULTURIST) WBC 7.4 3.8 - 9.9 K/cumm Comment:Testing performed by : [address] [address] Hgb 8.6(L) 11.9 - 15.5 g/dL DAYANA CARPIO Comment:Testing performed by : [address] [address] Hct 26.5(L) 35.6 - 45.5 % [facility] Comment:Testing performed by : [address] [address] Plt 238 150 - 400 K/cumm DAYANA Comment:Testing performed by : [address] [address] MPV 11.0 9.1 - 12.3 fL DAYANA CARPIO Comment:Testing performed by : [address] [address] RBC 2.59(L) 3.90 - 5.20 M/cumm DAYANA CARPIO Comment:Testing performed by : [address] [address] MCV 102.3(H) 81.3 - 96.4 fL DAYANA CARPIO Comment:Testing performed by : [address] [address] MCH 33.2 27.1 - 33.3 pg DAY[facility] CARPIO Comment:Testing performed by : [address] [address] MCHC 32.5 32.3 - 35.7 g/dL DAY[facility] CARPIO Comment:Testing performed by : [address] [address] RDW CV 16.4(H) 11.1 - 14.9 % DAYANA CARPIO Comment:Testing performed by : [address] [address] RDW SD 60.1(H) 35.7 - 48.1 fL DAYANA CARPIO Comment:Testing performed by : [address] [address] NRBC abs 0.00 0.00 - 0.01 K/cumm DAYANA Comment:Testing performed by : [address], [address] Blood 11/15/2024 4:35 AM OLERICULTURIST 11/15/2024 6:15 AM OLERICULTURIST us Ivan Vargas MD LAB BLOOD ORDERABLES Final Re sult [facility] [address] [facility] [place] [address] * (ABNORMAL) Protime-INR (11/15/2024 4:35 AM OLERICULTURIST) PT 16.8(H) 12.0 - 14.6 sec Comment: Ref Range High Testing performed by: [address] [address] INR 1.4(H) 0.9 - 1.2 DAYANA CARPIO Comment: Ref Range High Interpretive data Oral anticoagulant therapeutic ranges: Venous thromboembolism prophylaxis or treatment: 2.0-3.0 CARDIOLOGY Standard range: 2.0-3.0 High-intensity range: 2.5-3.5 Refer to indication-specific guidelines for appropriate target ranges for prosthetic heart valve replacement. Current interpretive data was last revised on 2019. Testing performed by: [address] [address] Blood 11/15/2024 4:35 AM OLERICULTURIST 11/15/2024 6:10 AM OLERICULTURIST us Bravo Mckenzie MD LAB BLOOD ORDERABLES Final Re sult Performing Organization Address [facility] Co de Phone Number [address] [place] [address] * Magnesium (11/15/2024 4:35 AM OLERICULTURIST) Pathologist [facility] Magnesium 1.7 1.4 - 2.5 mg/dL Comment:Testing performed by : [address] [address] Blood 11/15/2024 4:35 AM OLERICULTURIST 11/15/2024 6:10 AM OLERICULTURIST Ivan Vargas MD LAB BLOOD ORDERABLES Final Re sult Performing Organization Address [facility] Co de Phone Number [address] [place] [address] * (ABNORMAL) Comprehensive metabolic panel (11/15/2024 4:35 AM OLERICULTURIST) Pathologist [facility] Sodium 135 135 - 145 mmol/L Comment:Testing performed by : [address] [address] Potassium, pl 3.1(L) 3.3 - 4.9 mmol/L DAY[facility] Comment:Testing performed by : [address] [address] Chloride 89(L) 97 - 110 mmol/L DAY[facility] Comment:Testing performed by : [address] [address] CO2 27 22 - 32 mmol/L [facility] Comment:Testing performed by : [address] [address] Anion gap 19(H) 2 - 15 mmol/L [facility] Comment:Testing performed by : [address] [address] BUN 37(H) 6 - 25 mg/dL [facility] Comment:Testing performed by : [address] [id number] Creatinine 2.20(H) 0.60 - 1.10 mg/dL [facility] Comment:Testing performed by : [address] [address] Glucose 103 70 - 199 mg/dL [facility] Comment: Interpretive Data Fasting glucose >/= 126 [...] was last revised 2022. Testing performed by: [address] [address] Calcium 8.4(L) 8.5 - 10.3 mg/dL [facility] Comment:Testing performed by : [address] [address] Bilirubin, total 1.6(H) 0.1 - 1.2 mg/dL [facility] Comment:Testing performed by : [address] [address] Protein, pl 6.1(L) 6.5 - 8.5 g/dL [facility] Comment:Testing performed by : [address] [address] Albumin 3.7 3.5 - 5.0 g/dL [facility] Comment:Testing performed by : [address] [address] Alk phos 267(H) 40 - 130 Units/L DAYANA CARPIO Comment:Testing performed by : [address] [address] ALT 14 7 - 45 Units/L DAYANA CARPIO Comment:Testing performed by : [address] [address] AST 30 10 - 45 Units/L DAYANA CARPIO Comment:Testing performed by : [address] [address] Blood 11/15/2024 4:35 AM OLERICULTURIST 11/15/2024 6:10 AM OLERICULTURIST Ivan Vargas MD LAB BLOOD ORDERABLES Final Re sult Performing Organization Address City/[facility]/ZIP Co de Phone Number DAYANA [facility]0 [facility] [place] [address] * POCT glucose (11/14/2024 9:28 PM OLERICULTURIST) Glucose, POC 138 70 - 199 mg/dL Comment:Testing performed by : [address] [address] Glucose comment 1 Use This Result DAYANA Comment:Testing performed by : [address] [address] Glucose comment 2 RN/MD Notified DAYANA CARPIO Comment:Testing performed by : [address] [address] Blood 11/14/2024 9:28 PM OLERICULTURIST 11/14/2024 9:28 PM OLERICULTURIST Ivan Vargas MD LAB POCT ORDERABLES - DEVICE Final Result Performing Organization Address City/[facility]/ZIP Co de Phone Number DAYANA [facility]0 [facility] [place] [address] * POCT glucose (11/14/2024 5:48 PM OLERICULTURIST) Glucose, POC 120 70 - 199 mg/dL Comment:Testing performed by : [address] [address] Glucose comment 1 Use This Result DAYANA CARPIO Comment:Testing performed by : [address] [address] Glucose comment 2 RN/MD Notified DAYANA Comment:Testing performed by : [address] [address] Blood 11/14/2024 5:48 PM OLERICULTURIST 11/14/2024 5:48 PM OLERICULTURIST Ivan Vargas MD LAB POCT ORDERABLES - DEVICE Final Result Performing Organization Address [facility] Co de Phone Number DAYANA [address] [place] [address] * Sodium, urine, random (11/14/2024 3:29 PM OLERICULTURIST) Sodium, ur 42 mmol/L Comment: Interpretive Data No reference range established. Current interpretive data was last revised 2019. Urine 11/14/2024 3:29 PM OLERICULTURIST 11/14/2024 6:41 PM OLERICULTURIST Bravo Mckenzie MD LAB URINE ORDERABLES Final Re sult Performing Organization Address [facility] Co de Phone Number [address] [place] [address] * (ABNORMAL) Urinalysis reflex to microscopic and culture Urine, clean voided (11/14/2024 3:28 PM OLERICULTURIST) Color, ur Yellow Yellow Comment:Testing performed by : [address] [address] Clarity, ur Clear Clear DAYANA Comment:Testing performed by : [address] [address] Specific gravity, ur 1.018 1.003 - 1.030 [facility] Comment:Testing performed by : [address] [address] pH, urine 5.5 DAY[facility] CARPIO Comment: Interpretive Data U rine pH is affected by diet, medications, systemic acid-base disturbances, and renal tubular function. pH may affect urinary stone formation. For example, urine pH below 6.0 may help reduce the tendency for calcium phosphate stones and pH greater than 6.0 may reduce the tendency for uric acid stone formation. Source: [facility] [address] Current Interpretive Data was last revised on 2017 Testing performed by: [facility], [address] [place] [address], [place]., [address] Protein, ur ql Negative Negative DAYANA Comment:Testing performed by : [address], [place]., [address] Glucose, ur ql 1+(A) Negative DAYANA Comment:Testing performed by : [address], [place]., [address] Ketones, ur Negative Negative DAYANA Comment:Testing performed by : [address], [place]., [address] Bilirubin, ur Negative Negative [facility] Comment:Testing performed by : [address], [place]., [address] Blood, ur Negative Negative DAYANA Comment:Testing performed by : [address], [place]., [address] Urobilinogen, ur <2.0 <2.0 mg/dL [facility] Comment:Testing performed by : [address], [place]., [address] Nitrite, ur Negative Negative DAY[facility] Comment:Testing performed by : [address], [place]., [address] Leukocyte esterase, ur Negative Negative DAYANA Comment:Testing performed by : [address], [place]., [address] UA reflex comment Reflex conditions for microscopic UA and culture not met. DAYANA Comment:Testing performed by : [address], [place]., [address] Urine, clean voided 11/14/2024 3:28 PM OLERICULTURIST 11/14/2024 3:49 PM OLERICULTURIST us Ivan Vargas MD LAB MICROBIOLOGY - GENERAL OR DERABLES Final Result DAYANA CARPIO [address] [place] [address] * Ammonia (11/14/2024 2:16 PM OLERICULTURIST) Ammonia 34 <=50 mcmol/L Comment: Please note on 02/21/2024 the unit of measure changed from mcg/dL to mcmol/L. Current Interpretive Data was last revised on 2024 Testing performed by: [address] [address] Blood 11/14/2024 2:16 PM OLERICULTURIST 11/14/2024 2:22 PM OLERICULTURIST Ivan Vargas MD LAB BLOOD ORDERABLES Final Re sult Performing Organization Address [facility]/ZIP Co de Phone Number DAYANA [address] [address] * POCT glucose (11/14/2024 11:21 AM OLERICULTURIST) Glucose, POC 129 70 - 199 mg/dL Comment:Testing performed by : [address] [address] Glucose comment 1 Use This Result DAYANA CARPIO Comment:Testing performed by : [address] [address] Glucose comment 2 RN/MD Notified DAYANA CARPIO Comment:Testing performed by : [address] [address] Blood 11/14/2024 11:2 1 AM OLERICULTURIST 11/14/2024 11:21 AM OLERICULTURIST Ivan Vargas MD LAB POCT ORDERABLES - DEVICE Final Result DAYANA [facility] [place] [address] * POCT glucose (11/14/2024 8:11 AM OLERICULTURIST) Glucose, POC 107 70 - 199 mg/dL Comment:Testing performed by : [address], [place]., [address] Glucose comment 1 Use This Result DAYANA Comment:Testing performed by : [address] [address] Blood 11/14/2024 8:11 AM OLERICULTURIST 11/14/2024 8:11 AM OLERICULTURIST Ivan Vargas MD LAB POCT ORDERABLES - DEVICE Final Result Performing Organization Address [facility] de Phone Number DAYANA [address] [facility] [place] [address] * (ABNORMAL) eGFR (11/14/2024 5:03 AM OLERICULTURIST) eGFR 24(L) >=60 mL/min/1. 73 m2 Comment: [...] was last reviewed 2021. Testing performed by: [address] [address] Blood 11/14/2024 5:03 AM OLERICULTURIST 11/14/2024 5:33 AM OLERICULTURIST us Ivan Vargas MD LAB BLOOD ORDERABLES Final Re sult Performing Organization Address [facility] Co de Phone Number DAYANA [address] [facility] [place] [address] * (ABNORMAL) Differential, auto (11/14/2024 5:03 AM OLERICULTURIST) Neutrophil abs 4.8 1.5 - 6.5 K/cumm Comment:Testing performed by : [address] [address] Imm gran abs 0.0 0.0 - 0.1 K/cumm DAYANA Comment:Testing performed by : [address] [address] Lymphocyte abs 0.7(L) 0.8 - 3.3 K/cumm DAYANA Comment:Testing performed by : [address] [address] Monocyte abs 1.0(H) 0.2 - 0.8 K/cumm DAYANA Comment:Testing performed by : [address] [address] Eosinophil abs 0.7(H) 0.0 - 0.5 K/cumm DAYANA Comment:Testing performed by : [address] [address] Basophil abs 0.1 0.0 - 0.1 K/cumm DAYANA Comment:Testing performed by : [address] [address] Neutrophil pct 65.6 % DAYANA Comment: Interpretive Data Percent cell count reference ranges are not reported, since discordance with absolute values may lead to misinterpretation of CBC data. Current Interpretive Data was last revised on 2018. Testing performed by: [address] [address] Imm gran pct 0.4 % DAYANA Comment: Interpretive Data Percent cell count reference ranges are not reported, since discordance with absolute values may lead to misinterpretation of CBC data. Current Interpretive Data was last revised on 2018. Testing performed by: [address] [address] Lymphocyte pct 10.0 % [facility] Comment: Interpretive Data Percent cell count reference ranges are not reported, since discordance with absolute values may lead to misinterpretation of CBC data. Current Interpretive Data was last revised on 2018. Testing performed by: [address] [address] Monocyte pct 13.4 % DAYANA Comment: Interpretive Data Percent cell count reference ranges are not reported, since discordance with absolute values may lead to misinterpretation of CBC data. Current Interpretive Data was last revised on 2018. Testing performed by: [address] [address] Eosinophil pct 9.4 % DAYANA Comment: Interpretive Data Percent cell count reference ranges are not reported, since discordance with absolute values may lead to misinterpretation of CBC data. Current Interpretive Data was last revised on 2018. Testing performed by: [address] [address] Basophil pct 1.2 % [facility] Comment: Interpretive Data Percent cell count reference ranges are not reported, since discordance with absolute values may lead to misinterpretation of CBC data. Current Interpretive Data was last revised on 2018. Testing performed by: [address] [address] Blood 11/14/2024 5:03 AM OLERICULTURIST 11/14/2024 5:34 AM OLERICULTURIST us Ivan Vargas MD LAB BLOOD ORDERABLES Final Re sult [facility] [address] [facility] [place] [address] * (ABNORMAL) CBC with auto differential (11/14/2024 5:03 AM OLERICULTURIST) WBC 7.3 3.8 - 9.9 K/cumm Comment:Testing performed by : [address] [address] Hgb 8.5(L) 11.9 - 15.5 g/dL DAYANA Comment:Testing performed by : [address] [address] Hct 26.2(L) 35.6 - 45.5 % DAYANA Comment:Testing performed by : [address] [address] Plt 212 150 - 400 K/cumm DAYANA Comment:Testing performed by : [address] [address] MPV 10.7 9.1 - 12.3 fL DAYANA Comment:Testing performed by : [address] [address] RBC 2.57(L) 3.90 - 5.20 M/cumm DAYANA Comment:Testing performed by : [address] [address] MCV 101.9(H) 81.3 - 96.4 fL DAYANA Comment:Testing performed by : [address] [address] MCH 33.1 27.1 - 33.3 pg DAYANA Comment:Testing performed by : [address] [address] MCHC 32.4 32.3 - 35.7 g/dL DAYANA Comment:Testing performed by : [address] [address] RDW CV 16.8(H) 11.1 - 14.9 % DAYANA Comment:Testing performed by : [address] [address] RDW SD 60.4(H) 35.7 - 48.1 fL DAYANA Comment:Testing performed by : [address] [address] NRBC abs 0.00 0.00 - 0.01 K/cumm DAYANA Comment:Testing performed by : [address] [address] Blood 11/14/2024 5:03 AM OLERICULTURIST 11/14/2024 5:34 AM OLERICULTURIST us Ivan Vargas MD LAB BLOOD ORDERABLES Final Re sult DAYANA CARPIO [address] [facility] [place] [address] * (ABNORMAL) Comprehensive metabolic panel (11/14/2024 5:03 AM OLERICULTURIST) Sodium 135 135 - 145 mmol/L Comment:Testing performed by : [address] [address] Potassium, pl 3.5 3.3 - 4.9 mmol/L DAYANA Comment:Testing performed by : [address] [address] Chloride 91(L) 97 - 110 mmol/L DAY[facility] Comment:Testing performed by : [address] [address] CO2 28 22 - 32 mmol/L DAY[facility] Comment:Testing performed by : [address] [address] Anion gap 16(H) 2 - 15 mmol/L DAY[facility] Comment:Testing performed by : [address] [address] BUN 33(H) 6 - 25 mg/dL DAY[facility] Comment:Testing performed by : [address] [address] Creatinine 2.20(H) 0.60 - 1.10 mg/dL DAYANA Comment:Testing performed by : [address] [address] Glucose 94 70 - 199 mg/dL [facility] Comment: Interpretive Data Fasting glucose >/= 126 [...] was last revised 2022. Testing performed by: [address] [address] Calcium 8.3(L) 8.5 - 10.3 mg/dL DAYANA Comment:Testing performed by : [address] [address] Bilirubin, total 1.4(H) 0.1 - 1.2 mg/dL [facility] Comment:Testing performed by : [address] [address] Protein, pl 6.0(L) 6.5 - 8.5 g/dL DAY[facility] Comment:Testing performed by : [address] [address] Albumin 3.6 3.5 - 5.0 g/dL [facility] Comment:Testing performed by : [address] [address] Alk phos 256(H) 40 - 130 Units/L [facility] Comment:Testing performed by : [address] [address] ALT 17 7 - 45 Units/L DAYANA Comment:Testing performed by : [address] [address] AST 30 10 - 45 Units/L [facility] Comment:Testing performed by : [address] [address] Blood 11/14/2024 5:03 AM OLERICULTURIST 11/14/2024 5:33 AM OLERICULTURIST Ivan Vargas MD LAB BLOOD ORDERABLES Final Re sult [facility] [address] [facility] [place], [place] [id number] * POCT glucose (11/14/2024 4:41 AM OLERICULTURIST) Glucose, POC 121 70 - 199 mg/dL Comment:Testing performed by : [address] [address] Glucose comment 1 Use This Result DAYANA Comment:Testing performed by : [address] [address] Blood 11/14/2024 4:41 AM OLERICULTURIST 11/14/2024 4:41 AM OLERICULTURIST us Ivan Vargas MD LAB POCT ORDERABLES - DEVICE Final Result Performing Organization Address [facility] Co de Phone Number DAYANA [address] [place] [address] * POCT glucose (11/13/2024 7:59 PM OLERICULTURIST) Glucose, POC 155 70 - 199 mg/dL Comment:Testing performed by : [address] [address] Glucose comment 1 Use This Result DAYANA Comment:Testing performed by : [address] [address] Blood 11/13/2024 7:59 PM OLERICULTURIST 11/13/2024 7:59 PM OLERICULTURIST Ivan Vargas MD LAB POCT ORDERABLES - DEVICE Final Result Performing Organization Address [facility] de Phone Number DAYANA [address] [address] * POCT glucose (11/13/2024 5:16 PM OLERICULTURIST) Glucose, POC 131 70 - 199 mg/dL Comment:Testing performed by : [address] [address] Glucose comment 1 Use This Result DAYANA Comment:Testing performed by : [address] [address] Glucose comment 2 RN/MD Notified DAYANA Comment:Testing performed by : [address] [address] Blood 11/13/2024 5:16 PM OLERICULTURIST 11/13/2024 5:16 PM OLERICULTURIST us Ivan Vargas MD LAB POCT ORDERABLES - DEVICE Final Result Performing Organization Address City/[facility] Co de Phone Number DAYANA [address] [address] * CT Knee Left WO Contrast (11/13/2024 4:52 PM OLERICULTURIST) Anatomical Region Laterality Modality Lower Extremities Left Computed Tomog marquis 11/13/2024 5:29 PM OLERICULTURIST Narrative 11/13/2024 5:36 PM OLERICULTURIST EXAM DESCRIPTION: CT KNEE LEFT WO CONTRAST [...] Ed Ny M.D. JA: BETH Report ID: [id number] [place] Location: [id number] Procedure Note Ed Ny MD - 11/13/2024 [...] Ed Ny M.D. JA: BETH Report ID: [id number] [place] Location: [place] [address] us Ivan Vargas MD IMG CT PROCEDURES Final Resul t * US Chest (11/13/2024 2:21 PM OLERICULTURIST) Anatomical Region Laterality Modality Chest N/A Ultrasound 11/13/2024 4:29 PM OLERICULTURIST Narrative 11/13/2024 4:32 PM OLERICULTURIST EXAM DESCRIPTION: US CHEST REASON FOR STUDY: Right pleural effusion, assess for loculations TECHNIQUE: A Dynamic assessment was performed of the right chest by the multifocal button inspector, with selected grayscale images acquired and recorded [...] Will Stahl M.D. MZ: MZ Report ID: [id number] [place] Location: [id number] Procedure Note Will Stahl MD - 11/13/2024 EXAM DESCRIPTION: US CHEST REASON FOR STUDY: Right pleural effusion, assess for loculations TECHNIQUE: A Dynamic assessment was performed of the right chest by the multifocal button inspector, with selected grayscale images acquired and recorded [...] Will Stahl M.D. MZ: MZ Report ID: [id number] [place] Location: [id number] us Ivan Vargas MD IM US PROCEDURES Final Resul t * POCT glucose (11/13/2024 2:13 PM OLERICULTURIST) [facility] Glucose, POC 127 70 - 199 mg/dL Comment:Testing performed by : [address] [address] Glucose comment 1 Use This Result DAYANA CARPIO Comment:Testing performed by : [address] [address] Glucose comment 2 RN/MD Notified DAYANA CARPIO Comment:Testing performed by : [address] [address] Blood 11/13/2024 2:13 PM OLERICULTURIST 11/13/2024 2:13 PM OLERICULTURIST us Ivan Vargas MD LAB POCT ORDERABLES - DEVICE Final Result DAYANA MH [address] [facility] [place] [address] * FL Fluoro Guided Aspiration Knee Left (11/13/2024 1:30 PM OLERICULTURIST) Anatomical Region Laterality Modality Knee Left Computed Radiogr aphy, Computed Radiography 11/13/2024 1:57 PM OLERICULTURIST Narrative 11/13/2024 2:11 PM OLERICULTURIST EXAM DESCRIPTION: FL FLUORO GUIDED ASPIRATION KNEE [...] Kedar Corrales M.D. MM: MM Report ID: [id number] [place] Location: [id number] Procedure Note Kedar Corrales MD - 11/13/2024 [...] Kedar Corrales M.D. MM: MM Report ID: [id number] [place] Location: [id number] us Ivan Vargas MD IMG FLUOROSCOPY PROCEDURES Fi nal Result * (ABNORMAL) eGFR (11/13/2024 9:02 AM OLERICULTURIST) eGFR 34(L) >=60 mL/min/1. 73 m2 Comment: [...] was last reviewed 2021. Testing performed by: [address] [address] Blood 11/13/2024 9:02 AM OLERICULTURIST 11/13/2024 10:02 AM OLERICULTURIST Ivan Vargas MD LAB BLOOD ORDERABLES Final Re sult DAY[facility] [address] [facility] [place] [address] * (ABNORMAL) Differential, auto (11/13/2024 9:02 AM OLERICULTURIST) Neutrophil abs 4.3 1.5 - 6.5 K/cumm Comment:Testing performed by : [address] [address] Imm gran abs 0.0 0.0 - 0.1 K/cumm DAYANA Comment:Testing performed by : [address] [address] Lymphocyte abs 0.7(L) 0.8 - 3.3 K/cumm DAYANA Comment:Testing performed by : [address] [address] Monocyte abs 0.9(H) 0.2 - 0.8 K/cumm [facility] Comment:Testing performed by : [address] [address] Eosinophil abs 0.4 0.0 - 0.5 K/cumm DAYANA Comment:Testing performed by : [address] [address] Basophil abs 0.1 0.0 - 0.1 K/cumm DAYANA Comment:Testing performed by : [address] [address] Neutrophil pct 66.9 % [facility] Comment: Interpretive Data Percent cell count reference ranges are not reported, since discordance with absolute values may lead to misinterpretation of CBC data. Current Interpretive Data was last revised on 2018. Testing performed by: [address] [address] Imm gran pct 0.6 % [facility] Comment: Interpretive Data Percent cell count reference ranges are not reported, since discordance with absolute values may lead to misinterpretation of CBC data. Current Interpretive Data was last revised on 2018. Testing performed by: [address] [address] Lymphocyte pct 11.6 % [facility] Comment: Interpretive Data Percent cell count reference ranges are not reported, since discordance with absolute values may lead to misinterpretation of CBC data. Current Interpretive Data was last revised on 2018. Testing performed by: [address] [address] Monocyte pct 14.3 % [facility] Comment: Interpretive Data Percent cell count reference ranges are not reported, since discordance with absolute values may lead to misinterpretation of CBC data. Current Interpretive Data was last revised on 2018. Testing performed by: [address] [address] Eosinophil pct 5.5 % [facility] Comment: Interpretive Data Percent cell count reference ranges are not reported, since discordance with absolute values may lead to misinterpretation of CBC data. Current Interpretive Data was last revised on 2018. Testing performed by: [address] [address] Basophil pct 1.1 % [facility] Comment: Interpretive Data Percent cell count reference ranges are not reported, since discordance with absolute values may lead to misinterpretation of CBC data. Current Interpretive Data was last revised on 2018. Testing performed by: [address] [address] Blood 11/13/2024 9:02 AM OLERICULTURIST 11/13/2024 10:03 AM OLERICULTURIST us Ivan Vargas MD LAB BLOOD ORDERABLES Final Re sult DAYANA [address] [facility] [place] [address] * (ABNORMAL) CBC with auto differential (11/13/2024 9:02 AM OLERICULTURIST) WBC 6.4 3.8 - 9.9 K/cumm Comment:Testing performed by : [address] [address] Hgb 8.4(L) 11.9 - 15.5 g/dL DAYANA Comment:Testing performed by : [address] [address] Hct 25.2(L) 35.6 - 45.5 % DAYANA Comment:Testing performed by : [address] [address] Plt 196 150 - 400 K/cumm DAYANA Comment:Testing performed by : [address] [address] MPV 10.5 9.1 - 12.3 fL DAYANA Comment:Testing performed by : [address] [address] RBC 2.52(L) 3.90 - 5.20 M/cumm DAYANA Comment:Testing performed by : [address] [address] MCV 100.0(H) 81.3 - 96.4 fL DAYANA Comment:Testing performed by : [address] [address] MCH 33.3 27.1 - 33.3 pg DAYANA Comment:Testing performed by : [address] [address] MCHC 33.3 32.3 - 35.7 g/dL DAYANA CARPIO Comment:Testing performed by : [address] [address] RDW CV 16.8(H) 11.1 - 14.9 % DAYANA CARPIO Comment:Testing performed by : [address] [address] RDW SD 59.5(H) 35.7 - 48.1 fL DAYANA CARPIO Comment:Testing performed by : [address] [address] NRBC abs 0.00 0.00 - 0.01 K/cumm DAYANA Comment:Testing performed by : [address] [address] Blood 11/13/2024 9:02 AM OLERICULTURIST 11/13/2024 10:03 AM OLERICULTURIST Ivan Vargas MD LAB BLOOD ORDERABLES Final Re sult Performing Organization Address City/[facility] Co de Phone Number [address] [place] [address] * Magnesium (11/13/2024 9:02 AM OLERICULTURIST) Magnesium 1.5 1.4 - 2.5 mg/dL Comment:Testing performed by : [address] [address] Blood 11/13/2024 9:02 AM OLERICULTURIST 11/13/2024 10:02 AM OLERICULTURIST Ivan Vargas MD LAB BLOOD ORDERABLES Final Re sult Performing Organization Address City/[facility]/ZIP Co de Phone Number [address] [address] * (ABNORMAL) Comprehensive metabolic panel (11/13/2024 9:02 AM OLERICULTURIST) Sodium 135 135 - 145 mmol/L Comment:Testing performed by : [address] [address] Potassium, pl 3.6 3.3 - 4.9 mmol/L [facility] Comment:Testing performed by : [address] [address] Chloride 92(L) 97 - 110 mmol/L [facility] Comment:Testing performed by : [address], [place]., [address] CO2 29 22 - 32 mmol/L [facility] Comment:Testing performed by : [address] [address] Anion gap 14 2 - 15 mmol/L [facility] Comment:Testing performed by : [address], [place]., [address] BUN 28(H) 6 - 25 mg/dL [facility] Comment:Testing performed by : [address], [place]., [address] Creatinine 1.60(H) 0.60 - 1.10 mg/dL [facility] Comment:Testing performed by : [address] [address] Glucose 114 70 - 199 mg/dL [facility] Comment: Interpretive Data Fasting glucose >/= 126 [...] was last revised 2022. Testing performed by: [address] [address] Calcium 8.9 8.5 - 10.3 mg/dL [facility] Comment:Testing performed by : [address] [address] Bilirubin, total 1.5(H) 0.1 - 1.2 mg/dL [facility] Comment:Testing performed by : [address] [address] Protein, pl 5.7(L) 6.5 - 8.5 g/dL DAYANA Comment:Testing performed by : [address] [address] Albumin 3.3(L) 3.5 - 5.0 g/dL DAYANA CARPIO Comment:Testing performed by : [address] [address] Alk phos 272(H) 40 - 130 Units/L DAYANA Comment:Testing performed by : [address] [address] ALT 19 7 - 45 Units/L DAYANA Comment:Testing performed by : [address], [address] AST 36 10 - 45 Units/L DAYANA Comment:Testing performed by : [address], [address] Blood 11/13/2024 9:02 AM OLERICULTURIST 11/13/2024 10:02 AM OLERICULTURIST Ivan Vargas MD LAB BLOOD ORDERABLES Final Re sult Performing Organization Address [facility] de Phone Number [facility] [address] [facility] [place] [address] * POCT glucose (11/13/2024 8:00 AM OLERICULTURIST) [facility] Glucose, POC 128 70 - 199 mg/dL Comment:Testing performed by : [address] [address] Glucose comment 1 Use This Result DAYANA Comment:Testing performed by : [address] [address] Glucose comment 2 RN/MD Notified DAYANA Comment:Testing performed by : [address] [address] Blood 11/13/2024 8:00 AM OLERICULTURIST 11/13/2024 8:00 AM OLERICULTURIST Ivan Vargas MD LAB POCT ORDERABLES - DEVICE Final Result Performing Organization Address City/[facility] Co de Phone Number DAYANA [address] [address] * Strep pneumoniae antigen, urine Urine (11/13/2024 12:28 AM OLERICULTURIST) S. pneumoniae Ag Negative Negative Comment: Interpretive [...] on 2022 Urine 11/13/2024 12:2 8 AM OLERICULTURIST 11/13/2024 2:18 AM OLERICULTURIST Tino Lynne MD LAB MICROBIOLOGY - G ENERAL ORDERABLES Final Result Performing Organization Address [facility] de Phone Number MARY ALICE[address] [address] * Legionella antigen Urine (11/13/2024 12:28 AM OLERICULTURIST) Legionella Ag Negative Negative Comment: Interpretive Data This test detects only Legionella pneumophila serogroup 1 antigen. Testing performed by [facility] ([phone]). Current interpretive data was last revised on 2020. Testing performed by: [facility], [address] [place]., [address] Urine 11/13/2024 12:2 8 AM OLERICULTURIST 11/13/2024 3:19 AM OLERICULTURIST us Tino Lnyne MD LAB MICROBIOLOGY - G ENERAL ORDERABLES Final Result Performing Organization Address [facility] Co de Phone Number [place] [phone] [facility] [place] [address] * (ABNORMAL) POCT glucose (11/12/2024 10:04 PM OLERICULTURIST) [facility] Glucose, POC 207(H) 70 - 199 mg/dL Comment:Testing performed by : [facility], [address] [place] [address]., [address] Glucose comment 1 Use This Result DAYANA CARPIO Comment:Testing performed by : [facility], [address] [place] [address]., [address] Blood 11/12/2024 10:0 4 PM OLERICULTURIST 11/12/2024 10:04 PM OLERICULTURIST us Ivan Vargas MD LAB POCT ORDERABLES - DEVICE Final Result DAYANA CARPIO [address] [facility] Department [place] [address] * TRANSTHORACIC ECHO (TTE) COMPLETE W DOPPLER/CF WO CONTRAST (11/12/2024 4:14 PM OLERICULTURIST) Anatomical Region Laterality Modality Ultrasound 11/12/2024 3:49 PM OLERICULTURIST Narrative 11/12/2024 6:37 PM OLERICULTURIST Adult Echocardiogram + ----- + :Name: LOU ISLAS Study Date: 11/12/2024 Status: E : : Patient Location: [address]^[facility][id number][facility] : : Weight: 179 lbBP: 106/55 [...] Date: 11/12/2024Status: MHE : : Patient Location: [address]^[id number]^MHeight: 65 in : : : 179 lbBP: [...] 1 or 2 Views (11/12/2024 2:18 PM OLERICULTURIST) Anatomical Region Laterality Modality Lower Extremities, Knee Left Computed Radiography 11/12/2024 3:15 PM OLERICULTURIST Narrative 11/12/2024 3:19 PM OLERICULTURIST EXAM DESCRIPTION: XR KNEE LEFT 1 OR [...] Juan Daily M.D. MF: SHARIFA Report ID: [id number] [place] Location: [id number] Procedure Note Juan Daily MD - 11/12/2024 [...] Juan Daily M.D. MF: SHARIFA Report ID: [id number] [place] Location: [id number] us Ivan Vargas MD IMG XR PROCEDURES Final Resul t * POCT glucose (11/12/2024 12:11 PM OLERICULTURIST) [facility] Glucose, POC 156 70 - 199 mg/dL Comment:Testing performed by : [address] [address] Glucose comment 1 Use This Result DAYANA Comment:Testing performed by : [address] [address] Blood 11/12/2024 12:1 1 PM OLERICULTURIST 11/12/2024 12:11 PM OLERICULTURIST Ivan Vargas MD LAB POCT ORDERABLES - DEVICE Final Result Performing Organization Address [facility] Co de Phone Number DAYANA [address] [place] [address] * POCT glucose (11/12/2024 10:02 AM OLERICULTURIST) [facility] Glucose, POC 125 70 - 199 mg/dL Comment:Testing performed by : [address] [address] Glucose comment 1 Use This Result DAYANA Comment:Testing performed by : [address] [address] Blood 11/12/2024 10:0 2 AM OLERICULTURIST 11/12/2024 10:02 AM OLERICULTURIST Ivan Vargas MD LAB POCT ORDERABLES - DEVICE Final Result Performing Organization Address City/[facility] Co de Phone Number [address] [place] [address] * (ABNORMAL) eGFR (11/12/2024 8:29 AM OLERICULTURIST) [facility] eGFR 49(L) >=60 mL/min/1. 73 m2 [...] was last reviewed 2021. Testing performed by: [address] [address] Blood 11/12/2024 8:29 AM OLERICULTURIST 11/12/2024 9:02 AM OLERICULTURIST Tino Lynne MD LAB BLOOD ORDERABLES Final Result DAAYNA [address] Department [place] [address] * (ABNORMAL) Differential, auto (11/12/2024 8:29 AM OLERICULTURIST) Neutrophil abs 5.0 1.5 - 6.5 K/cumm Comment:Testing performed by : [address] [address] Imm gran abs 0.1 0.0 - 0.1 K/cumm DAYANA Comment:Testing performed by : [address] [address] Lymphocyte abs 0.8 0.8 - 3.3 K/cumm DAYANA Comment:Testing performed by : [address] [address] Monocyte abs 0.9(H) 0.2 - 0.8 K/cumm DAYANA CARPIO Comment:Testing performed by : [address] [address] Eosinophil abs 0.3 0.0 - 0.5 K/cumm DAYANA Comment:Testing performed by : [address] [address] Basophil abs 0.1 0.0 - 0.1 K/cumm DAYANA Comment:Testing performed by : [address] [address] Neutrophil pct 70.4 % [facility] Comment: Interpretive Data Percent cell count reference ranges are not reported, since discordance with absolute values may lead to misinterpretation of CBC data. Current Interpretive Data was last revised on 2018. Testing performed by: [address] [address] Imm gran pct 1.0 % [facility] Comment: Interpretive Data Percent cell count reference ranges are not reported, since discordance with absolute values may lead to misinterpretation of CBC data. Current Interpretive Data was last revised on 2018. Testing performed by: [address] [address] Lymphocyte pct 11.1 % [facility] Comment: Interpretive Data Percent cell count reference ranges are not reported, since discordance with absolute values may lead to misinterpretation of CBC data. Current Interpretive Data was last revised on 2018. Testing performed by: [address] [address] Monocyte pct 12.5 % [facility] Comment: Interpretive Data Percent cell count reference ranges are not reported, since discordance with absolute values may lead to misinterpretation of CBC data. Current Interpretive Data was last revised on 2018. Testing performed by: [address] [address] Eosinophil pct 4.1 % [facility] Comment: Interpretive Data Percent cell count reference ranges are not reported, since discordance with absolute values may lead to misinterpretation of CBC data. Current Interpretive Data was last revised on 2018. Testing performed by: [address] [address] Basophil pct 0.9 % [facility] Comment: Interpretive Data Percent cell count reference ranges are not reported, since discordance with absolute values may lead to misinterpretation of CBC data. Current Interpretive Data was last revised on 2018. Testing performed by: [address] [place] [address] Blood 11/12/2024 8:29 AM OLERICULTURIST 11/12/2024 9:03 AM OLERICULTURIST Tino Lynne MD LAB BLOOD ORDERABLES Final Result [facility] [address] [facility] Department [place] [address] * (ABNORMAL) CBC with auto differential (11/12/2024 8:29 AM OLERICULTURIST) Pathologist [facility] WBC 7.0 3.8 - 9.9 K/cumm Comment:Testing performed by : [address] [address] Hgb 8.7(L) 11.9 - 15.5 g/dL DAYANA Comment:Testing performed by : [address] [address] Hct 26.9(L) 35.6 - 45.5 % DAYANA Comment:Testing performed by : [address] [address] Plt 203 150 - 400 K/cumm DAYANA Comment:Testing performed by : [address] [address] MPV 10.4 9.1 - 12.3 fL DAYANA Comment:Testing performed by : [address] [address] RBC 2.68(L) 3.90 - 5.20 M/cumm DAYANA Comment:Testing performed by : [address] [address] MCV 100.4(H) 81.3 - 96.4 fL DAYANA Comment:Testing performed by : [address] [address] MCH 32.5 27.1 - 33.3 pg DAYANA CARPIO Comment:Testing performed by : [address] [address] MCHC 32.3 32.3 - 35.7 g/dL DAYANA CARPIO Comment:Testing performed by : [address] [address] RDW CV 17.0(H) 11.1 - 14.9 % DAYANA CARPIO Comment:Testing performed by : [address] [address] RDW SD 59.2(H) 35.7 - 48.1 fL DAYANA CARPIO Comment:Testing performed by : [address] [address] NRBC abs 0.00 0.00 - 0.01 K/cumm DAYANA CARPIO Comment:Testing performed by : [address] [address] Blood 11/12/2024 8:29 AM OLERICULTURIST 11/12/2024 9:03 AM OLERICULTURIST Tino Lynne MD LAB BLOOD ORDERABLES Final Result Performing Organization Address City/State/[facility] Co de Phone Number DAYANA CARPIO [facility] [facility] Department [place] [address] * (ABNORMAL) Comprehensive metabolic panel (11/12/2024 8:29 AM OLERICULTURIST) Sodium 137 135 - 145 mmol/L Comment:Testing performed by : [address] [address] Potassium, pl 3.4 3.3 - 4.9 mmol/L DAYANA CARPIO Comment:Testing performed by : [address] [address] Chloride 94(L) 97 - 110 mmol/L DAYANA CARPIO Comment:Testing performed by : [address] [address] CO2 29 22 - 32 mmol/L DAYANA CARPIO Comment:Testing performed by : [address] [address] Anion gap 14 2 - 15 mmol/L DAYANA CARPIO Comment:Testing performed by : [address] [address] BUN 23 6 - 25 mg/dL DAYANA CARPIO Comment:Testing performed by : [address] [address] Creatinine 1.20(H) 0.60 - 1.10 mg/dL DAYANA Comment:Testing performed by : [address] [address] Glucose 112 70 - 199 mg/dL [facility] Comment: Interpretive Data Fasting glucose >/= 126 [...] was last revised 2022. Testing performed by: [address] [address] Calcium 9.3 8.5 - 10.3 mg/dL [facility] Comment:Testing performed by : [address] [address] Bilirubin, total 1.8(H) 0.1 - 1.2 mg/dL [facility] Comment:Testing performed by : [address] [address] Protein, pl 5.9(L) 6.5 - 8.5 g/dL [facility] Comment:Testing performed by : [address] [address] Albumin 3.5 3.5 - 5.0 g/dL [facility] Comment:Testing performed by : [address] [address] Alk phos 297(H) 40 - 130 Units/L [facility] Comment:Testing performed by : [address] [address] ALT 21 7 - 45 Units/L [facility] Comment:Testing performed by : [address] [address] AST 46(H) 10 - 45 Units/L [facility] Comment:Testing performed by : [address], [place]., [address] Blood 11/12/2024 8:29 AM OLERICULTURIST 11/12/2024 9:02 AM OLERICULTURIST Tino Lynne MD LAB BLOOD ORDERABLES Final Result Performing Organization Address [facility] Co de Phone Number DAYANA [address] [address] * POCT glucose (11/12/2024 3:01 AM OLERICULTURIST) Glucose, POC 118 70 - 199 mg/dL Comment:Testing performed by : [facility], [address] [place] [address]., [address] Glucose comment 1 Use This Result DAYANA Comment:Testing performed by : [facility], [address] [place] [address]., [address] Blood 11/12/2024 3:01 AM OLERICULTURIST 11/12/2024 3:01 AM OLERICULTURIST Tino Lynne MD LAB POCT ORDERABLES - DEVICE Final Result Performing Organization Address [facility] Co de Phone Number DAYANA [address] [address] * Blood culture Blood Peripheral (11/11/2024 9:45 PM OLERICULTURIST) Report Final Report: No growth Comment:Testing performed by : [facility], [address] [place]., [address] Blood (Peripheral) 11/11/2024 9:45 PM OLERICULTURIST 11/12/2024 1:21 AM OLERICULTURIST Narrative DAYANA - 11/16/2024 7:00 AM OLERICULTURIST From a different site than #1. Draw [...] performance characteristics have been verified by the [facility]. For questions about this culture, contact the Microbiology Laboratory at [phone]. Interpretive data was last revised on 24. Bravo Chino MD LAB MICROBIOLOGY - GEN ERAL ORDERABLES Final Result DAYANA [address] [facility] Department [place] [address] * Blood culture Blood Peripheral (11/11/2024 9:45 PM OLERICULTURIST) Report Final Report: No growth Comment:Testing performed by : [facility], [address] [facility] [place]., [address] Blood (Peripheral) 11/11/2024 9:45 PM OLERICULTURIST 11/12/2024 1:22 AM OLERICULTURIST Kaye ANNE - 11/16/2024 7:00 AM OLERICULTURIST Draw Blood cultures before administration of Antibiotics [...] performance characteristics have been verified by the [facility]. For questions about this culture, contact the Microbiology Laboratory at [phone]. Interpretive data was last revised on 24. us Bravo Chino MD LAB MICROBIOLOGY - GEN ERAL ORDERABLES Final Result DAYANA [address] [facility] Department [place] [address] * CT Chest Abdomen Pelvis WO Contrast (11/11/2024 8:07 PM OLERICULTURIST) Anatomical Region Laterality Modality Body N/A Computed Tomogra phy 11/11/2024 8:12 PM OLERICULTURIST Narrative 11/11/2024 8:29 PM OLERICULTURIST EXAM DESCRIPTION: CT CHEST ABDOMEN PELVIS WO CONTRAST REASON FOR STUDY: fluid overload, CHF, possible cirrhosis Pt c/o increasing swelling to bilateral lower extremities that is spreading to lower abd x approx 3 weeks. Pt currently in snf for rehab d/t recent hospital admission for [...] in the right lower lobe dependently. PLEURA: Iawwd-kk-dficvudr right pleural effusion is present. MEDIASTINUM/JETT: No [...] streak artifact. OTHER: No significant abnormality. IMPRESSION: Yxqnk-lj-gvwhzffa right pleural effusion with right lower lobe consolidation. Small patchy areas of density in the right upper and lower lobes may be infectious or inflammatory. Short-term follow-up is recommended. Small pericardial effusion. Hepatic cirrhosis. Cholelithiasis. Diffuse atherosclerotic disease. THIS IS AN ELECTRONICALLY VERIFIED FINAL REPORT 11/11/2024 8:29 PM - Electronically signed by Pedro De La Vega M.D. KH: MADHAV Report ID: [id number] [place] Location: [place] [address] Procedure Note Pedro De La Vega MD - 11/11/2024 EXAM DESCRIPTION: CT CHEST ABDOMEN PELVIS WO CONTRAST REASON FOR STUDY: fluid overload, CHF, possible cirrhosis Pt c/o increasing swelling to bilateral lower extremities that isspreading to lower abd x approx 3 weeks. [facility]/ [facility] [...] in the right lower lobe dependently. PLEURA: Yitwq-bh-jcmkfdbw right pleural effusion is present. MEDIASTINUM/JETT: No [...] streak artifact. OTHER: No significant abnormality. IMPRESSION: Uelqe-tb-lcuvujiw right pleural effusion with right lower lobeconsolidation. Small patchy areas of density in the right upper and lower lobes may be infectious or inflammatory. Short-term follow-up is recommended. Small pericardial effusion. Hepatic cirrhosis. Cholelithiasis. Diffuse atherosclerotic disease. THIS IS AN ELECTRONICALLY VERIFIED FINAL REPORT 11/11/2024 8:29 PM - Electronically signed by Pedro De La Vega M.D. KH: MADHAV Report ID: [id number] [place] Location: [id number] us Bravo Chino MD IMG CT PROCEDURES Manda l Result * XR Chest 1 Vw Portable (if patient condition/safety warrant portable) (11/11/2024 5:30 PM OLERICULTURIST) Anatomical Region Laterality Modality Body, Chest N/A Computed Radiogr aphy 11/11/2024 6:12 PM OLERICULTURIST Narrative 11/11/2024 6:12 PM OLERICULTURIST EXAM DESCRIPTION: XR CHEST 1 VIEW REASON FOR STUDY: Shortness of breath Pt c/o increasing swelling to bilateral lower extremities that is spreading to lower abd x approx 3 weeks. Pt currently in snf for rehab d/t recent hospital admission for [...] Eric Larson M.D. AG: CAM Report ID: [id number] [place] Location: [id number] Procedure Note Eric Larson MD - 11/11/2024 EXAM DESCRIPTION: XR CHEST 1 VIEW REASON FOR STUDY: Shortness of breath Pt c/o increasing swelling to bilateral lower extremities that isspreading to lower abd x approx 3 weeks. Pt currently in snf for rehab d/[facility] admission for similar complaints/ sepsis in [...] Eric Larson M.D. AG: AG Report ID: [id number] [place] Location: [id number] Bravo Chino MD IMG XR PROCEDURES Manda l Result * Sepsis Lactate w/ Reflex (11/11/2024 5:10 PM OLERICULTURIST) Sepsis Lactate 1.6 0.7 - 2.0 mmol/L Comment:Testing performed by : [facility], [address] [place] [address]., [address] Blood 11/11/2024 5:10 PM OLERICULTURIST 11/11/2024 5:16 PM OLERICULTURIST Bravo Chino MD LAB BLOOD ORDERABLES F inal Result [facility] [address] [facility] Department [place] [address] * (ABNORMAL) eGFR (11/11/2024 5:10 PM OLERICULTURIST) eGFR 43(L) >=60 mL/min/1. 73 m2 Comment: [...] was last reviewed 2021. Testing performed by: [address] [address] Blood 11/11/2024 5:10 PM OLERICULTURIST 11/11/2024 5:16 PM OLERICULTURIST us Gloria Steen NP LAB BLOOD ORDERABLES Final Resul t [facility] [address] [facility] [place] [address] * (ABNORMAL) Differential, auto (11/11/2024 5:10 PM OLERICULTURIST) Pathologist [facility] Neutrophil abs 4.9 1.5 - 6.5 K/cumm Comment:Testing performed by : [address] [address] Imm gran abs 0.1 0.0 - 0.1 K/cumm DAYANA Comment:Testing performed by : [address] [address] Lymphocyte abs 0.7(L) 0.8 - 3.3 K/cumm DAYANA Comment:Testing performed by : [address] [address] Monocyte abs 0.9(H) 0.2 - 0.8 K/cumm [facility] Comment:Testing performed by : [address] [address] Eosinophil abs 0.2 0.0 - 0.5 K/cumm [facility] Comment:Testing performed by : [address], [place]., [address] Basophil abs 0.1 0.0 - 0.1 K/cumm [facility] Comment:Testing performed by : [address] [address] Neutrophil pct 71.4 % [facility] Comment: Interpretive Data Percent cell count reference ranges are not reported, since discordance with absolute values may lead to misinterpretation of CBC data. Current Interpretive Data was last revised on 2018. Testing performed by: [address] [address] Imm gran pct 1.0 % [facility] Comment: Interpretive Data Percent cell count reference ranges are not reported, since discordance with absolute values may lead to misinterpretation of CBC data. Current Interpretive Data was last revised on 2018. Testing performed by: [address] [address] Lymphocyte pct 10.8 % [facility] Comment: Interpretive Data Percent cell count reference ranges are not reported, since discordance with absolute values may lead to misinterpretation of CBC data. Current Interpretive Data was last revised on 2018. Testing performed by: [address] [address] Monocyte pct 13.0 % [facility] Comment: Interpretive Data Percent cell count reference ranges are not reported, since discordance with absolute values may lead to misinterpretation of CBC data. Current Interpretive Data was last revised on 2018. Testing performed by: [address] [address] Eosinophil pct 3.1 % [facility] Comment: Interpretive Data Percent cell count reference ranges are not reported, since discordance with absolute values may lead to misinterpretation of CBC data. Current Interpretive Data was last revised on 2018. Testing performed by: [facility], [address] [place] [address]., [address] Basophil pct 0.7 % DAYANA CARPIO Comment: Interpretive Data Percent cell count reference ranges are not reported, since discordance with absolute values may lead to misinterpretation of CBC data. Current Interpretive Data was last revised on 2018. Testing performed by: [facility], [address] [place] [address]., [address] Blood 11/11/2024 5:10 PM OLERICULTURIST 11/11/2024 5:16 PM OLERICULTURIST us Gloria Steen NP LAB BLOOD ORDERABLES Final Resul t DAYANA CARPIO [address] [facility] Department [place] [address] * (ABNORMAL) Pro B-type natriuretic peptide (11/11/2024 5:10 PM OLERICULTURIST) NT-proBNP 5,728(H) <=300 pg/mL Comment: Interpretive Comments: [...] Last Revised Date: 2018. Testing performed by: [address] [address] Blood 11/11/2024 5:10 PM OLERICULTURIST 11/11/2024 5:16 PM OLERICULTURIST us Bravo Chino MD LAB BLOOD ORDERABLES F inal Result DAY[facility] [address] [facility] Department [place] [address] * (ABNORMAL) CBC with auto differential (11/11/2024 5:10 PM OLERICULTURIST) WBC 6.9 3.8 - 9.9 K/cumm Comment:Testing performed by : [address] [address] Hgb 9.3(L) 11.9 - 15.5 g/dL DAYANA CAPRIO Comment:Testing performed by : [address] [address] Hct 28.3(L) 35.6 - 45.5 % DAYANA CARPIO Comment:Testing performed by : [address] [address] Plt 209 150 - 400 K/cumm DAYANA Comment:Testing performed by : [address] [address] MPV 10.3 9.1 - 12.3 fL DAYANA CARPIO Comment:Testing performed by : [address] [address] RBC 2.84(L) 3.90 - 5.20 M/cumm DAYANA CARPIO Comment:Testing performed by : [address] [address] MCV 99.6(H) 81.3 - 96.4 fL DAYANA CARPIO Comment:Testing performed by : [address] [address] MCH 32.7 27.1 - 33.3 pg DAYANA CARPIO Comment:Testing performed by : [address] [address] MCHC 32.9 32.3 - 35.7 g/dL DAYANA CARPIO Comment:Testing performed by : [address] [address] RDW CV 17.0(H) 11.1 - 14.9 % DAYANA CARPIO Comment:Testing performed by : [address] [address] RDW SD 59.6(H) 35.7 - 48.1 fL DAYANA CARPIO Comment:Testing performed by : [address] [address] NRBC abs 0.00 0.00 - 0.01 K/cumm DAYANA CARPIO Comment:Testing performed by : [address] [address] Blood 11/11/2024 5:10 PM OLERICULTURIST 11/11/2024 5:16 PM OLERICULTURIST us Bravo Chino MD LAB BLOOD ORDERABLES F inal Result DAYANA CARPIO [facility] [place] [address] * (ABNORMAL) Comprehensive metabolic panel (11/11/2024 5:10 PM OLERICULTURIST) Sodium 136 135 - 145 mmol/L Comment:Testing performed by : [address] [id number] Potassium, pl 3.6 3.3 - 4.9 mmol/L DAY[facility] CARPIO Comment: Hemolyzed; Potassium value may be falsely elevated by as much as 1.0 mmol/L. Suggest redraw and reanalysis. Testing performed by: [address] [address] Chloride 93(L) 97 - 110 mmol/L DAYANA CARPIO Comment:Testing performed by : [address] [address] CO2 32 22 - 32 mmol/L DAYANA Comment:Testing performed by : [address] [address] Anion gap 11 2 - 15 mmol/L [facility] Comment:Testing performed by : [address] [address] BUN 23 6 - 25 mg/dL [facility] Comment:Testing performed by : [address] [address] Creatinine 1.32(H) 0.60 - 1.10 mg/dL [facility] Comment:Testing performed by : [address] [address] Glucose 170 70 - 199 mg/dL [facility] Comment: Interpretive Data Fasting glucose >/= 126 [...] was last revised 2022. Testing performed by: [address] [address] Calcium 9.6 8.5 - 10.3 mg/dL [facility] Comment:Testing performed by : [address] [address] Bilirubin, total 1.9(H) 0.1 - 1.2 mg/dL [facility] Comment:Testing performed by : [address] [address] Protein, pl 6.3(L) 6.5 - 8.5 g/dL [facility] Comment:Testing performed by : [address] [address] Albumin 3.6 3.5 - 5.0 g/dL [facility] Comment:Testing performed by : [address] [address] Alk phos 337(H) 40 - 130 Units/L [facility] Comment:Testing performed by : [facility], [address] [place] [address]., [address] ALT 30 7 - 45 Units/L DAYANA Comment:Testing performed by : [facility], [address] [place] [address]., [address] AST 73(H) 10 - 45 Units/L [facility] Comment: Hemolyzed; result may be falsely elevated Testing performed by: [facility], [address] [place] [address], [address] Blood 11/11/2024 5:10 PM OLERICULTURIST 11/11/2024 5:16 PM OLERICULTURIST Result [facility] Bravo Chino MD LAB BLOOD ORDERABLES F inal Result [facility] [address] [facility] [place] [address] * Cardiology Document Scan (11/01/2024 10:08 AM OLERICULTURIST) Anatomical Region Laterality Modality Other Bridget Nicholson NP CV CARDIAC SERVICES PROCEDUR ES Final Result * Cardiology Document Scan (10/31/2024 9:21 AM OLERICULTURIST) Anatomical Region Laterality Modality Other Jc Schaffer MD CV CARDIAC SERVICES PROCEDURES F inal Result * POCT lipid panel (11/15/2023 2:47 PM OLERICULTURIST) Cholesterol, POC 146 mg/dL Comment:GLU = 90 HDL, POC 58 mg/dL Triglycerides, POC 87 mg/dL LDL Cholesterol POC 70 mg/dL Chol/HDL Ratio, POC 1.2 Non-HDL Cholesterol, POC 88 mg/dL Cholesterol Total, POC 146 mg/dL Capillary blood 11/15/2023 2 :47 PM OLERICULTURIST Bridget Nicholson NP POINT OF CARE TEST ORDERABLE S Final Result from Last 3 Months or Most Recently Relevant to Health Maintenance Insurance MEDICARE [employer] SENIOR SUPPLEMENT Advance Directives For more information, please contact: [phone] Documents on File Type Date Recorded Patient Bilingual Sales Assistant Expl anation ADVANCE DIRECTIVE 11/13/2024 3:42 PM Power of Buttonhole Maker-Medical * Full Code (Latest Code Status on File) Date Activated Date Inactivated Comments 11/12/2024 2:31 AM 11/20/2024 10:35 PM Care Teams Visor Installer Relationship Specialty Start Date End Date Ghanshyam Ruiz NP [address] [place] [address] PCP - General Nurse Practitioner 09/03/24 Augustus Birch MD [address] [place] [address] Internal Medicine 04/17/19
--- OUTSIDE RECORDS SUMMARY | 2025-01-14 14:59 | XMS_ITS | Clinical Summary ---
Author Organization [facility] Address [address] [place] [address] Care Team Providers Care Gun Repair Clerk Name Role Phone Dariel Horvath DO Primary Care Provider [phone] Source Comments [facility],non-owned Affiliates and Associated Physician Practices is amultiple site organization consisting of ambulatory clinics and hospital sitesin [place], [place] and [place]. This disclosure is being madepursuant to the Care Everywhere program and may not contain all information available regarding this patient. Last updated 18.[facility] Allergies Active Allergy Reactions Criticality Noted Date [...] left femur, unspecified fracture morphology, initial encounter ([facility]) Take 1 (one) capsule by mouth [...] 85.3 kg (188 lb) 09/16/2021 10:56 AM CORPORATE COUNSEL Height 165.1 cm (5' 5 ) 06/24/2021 [...] this topic Medical Devices Implanted Type Area Frog Farmer Device Identifier Shelf Expiration Date Model / Serial / Lot 8.0mm Cannulated Locking Screw Implanted:Qty: 1 on 05/31/2021 by Mary Ann Elkins MD at [facility] Left: Leg [id number] / / Plate 6 Hl Lck Precontr Fem Lt Dist Implanted:Qty: 1 on 05/31/2021 by Mary Ann Elkins MD at [facility] Left: Leg [employer] 06/24/2028 [id number] / / 5.5mm Dt Poly Locking Screws Implanted:Qty: 2 on 05/31/2021 by Mary Ann Elkins MD at [facility] Left: Leg [employer] [id number] / / 5.5mm Ft Poly Locking Screws Implanted:Qty: 2 on 05/31/2021 by Mary Ann Elkins MD at [facility] Left: Leg [id number] / / 4.5mm Solid Cortical Bone Screw Implanted:Qty: 1 on 05/31/2021 by Mary Ann Elkins MD at [facility] Left: Leg [id number] / / 4.5 Solid Cortical Bone Screw Implanted:Qty: 1 on 05/31/2021 by Mary Ann Elkins MD at [facility] Left: Leg [id number] / / 4.5 Solid Cortical Bone Screw Implanted:Qty: 1 on 05/31/2021 by Mary Ann Elkins MD at [facility] Left: Leg [id number] / / 4.5 Solid Cortical Bone Screw Implanted:Qty: 1 on 05/31/2021 by Mary Ann Elkins MD at [facility] Left: Leg [id number] / / Explanted Type Area Frog Farmer Device Identifier Shelf Expiration Date Model / Serial / Lot Wire K 1.6mm 150mm 1 End Troc Pnt Ss Sm Explanted:Qty: 1 on 05/31/2021 by Mary Ann Elkins MD at [facility] Left: Leg [employer] [id number] / / 5.5mm Non-Locking Screws Explanted:Qty: 1 on 05/31/2021 by Mary Ann Elkins MD at [facility] Left: Leg [id number] / / 4.5 Solid Cortical Bone Screw Explanted:Qty: 1 on 05/31/2021 by Mary Ann Elkins MD at [facility] Left: Leg [id number] / / Procedures Procedure Name Priority Date/Time Associated Diagnosis Comments COMPREHENSIVE METABOLIC PANEL AM Draw 06/04/2021 1:24 AM CDT HEMOGLOBIN A1C DIOMEDES 05/31/2021 3:39 AM CDT from Last 3 Months or Most Recently Relevant to Health Maintenance Results * (ABNORMAL) COMPREHENSIVE METABOLIC PANEL (06/04/2021 1:24 AM CDT) BUN 14 7 - 26 mg/dL 06/04/2021 2:51 AM [facility] Creatinine 1.13(H) 0.56 - 0.96 mg/dL 06/04/2021 2:51 AM [facility] Sodium 130(L) 136 - 145 mmol/L 06/04/2021 2:51 AM [facility] Potassium 4.1 3.5 - 4.5 mmol/L 06/04/2021 2:51 AM [facility] Chloride 98 98 - 107 mmol/L 06/04/2021 2:51 AM [facility] CO2 24 22 - 29 mmol/L 06/04/2021 2:51 AM [facility] Glucose 138(H) 70 - 115 mg/dL 06/04/2021 2:51 AM [facility] Calcium 8.5 8.4 - 10.2 mg/dL 06/04/2021 2:51 AM [facility] Protein Total 5.4(L) 6.0 - 8.3 g/dL 06/04/2021 2:51 AM [facility] Albumin 2.8(L) 3.4 - 5.0 g/dL 06/04/2021 2:51 AM [facility] Bilirubin Total 1.0 0.2 - 1.2 mg/dL 06/04/2021 2:51 AM [facility] Alkaline Phosphatase 284(H) 40 - 150 U/L 06/04/2021 2:51 AM [facility] ALT 13 5 - 55 U/L 06/04/2021 2:51 AM [facility] AST 33 5 - 34 U/L 06/04/2021 2:51 AM [facility] Anion Gap 12 8 - 18 06/04/2021 2:51 AM [facility] BUN/Creatinine Ratio 12 7 - 23 06/04/2021 2:51 AM [facility] Osmolality Calculated 273 270 - 300 mOsm/kg 06/04/2021 2:51 AM [facility] Albumin/Globulin Ratio 1.1 1.1 - 2.3 06/04/2021 2:51 AM [facility] eGFR by CKD-EPI 50(L) >=90 mL/min/1.7 3 m2 06/04/2021 2:51 AM [facility] Blood BLOOD SPECIMEN / Unknown Lab Venipuncture / Unknown 06/04/2021 1:24 AM CDT 06/04/2021 2:15 AM T Janene Sampson PA-C LAB - CHEMISTRY HELADIO Navarro Organization Address City/State/ZIP Co de Phone Number [facility] [address] [place] [address], [facility] [phone] * HEMOGLOBIN A1C (05/31/2021 3:39 AM T) Hemoglobin A1c 5.4 4.4 - 6.3 % 05/31/2021 10:18 AM [facility] Estimated Average Glucose 108 mg/dL 05/31/2021 10:18 AM CDT [facility] Comment: HbA1c Interpretation: Treatment target values recommended by ADA and other clinical organizations should be used to evaluate metabolic control in patients. Treatment Target Values: Normal : < 5.7% Pre-diabetes: 5.7-6.4% Diabetes: Equal to or greater than 6.5% Reference: [place] [employer] Standards of Care in Diabetes -2014 In patients 70 years and older consider HbA1c target range of 7.0-7.5% Reference: Diabetes Mellitus in Older People: Position Statement on behalf of the International Association of Gerontology and Geriatrics (IAGG), the Diabetes Working Libertarian for Older People (EDWPOP), and the International Task Force of Experts in Diabetes. Phu Pisano, et al. J [place] [employer]. 2012 Test results diagnostic of diabetes should be repeated for confirmation. The Sebia Capillary 2 assay for the measurement of HbA1c is a National Glycohemoglobin Standardization Program (NGSP)certified method. Blood BLOOD SPECIMEN / Unknown Venipuncture / Unknown 05/31/2021 3:39 AM CDT 05/31/2021 3:46 AM CDT Raheel Erazo MD LAB - CHEMISTRY HELADIO [facility] Organization Address City/State/ZIP Co de Phone Number [facility] [address] [place] [address], [facility] [phone] from Last 3 Months or Most Recently Relevant to Health Maintenance Advance Directives * Full Code (Latest Code Status on File) Date Activated Date Inactivated Comments 05/31/2021 12:14 AM 06/04/2021 6:44 PM Care Teams Gun Repair Clerk Relationship Specialty Start Date End Date Dariel Horvath DO [address] [facility] [address] [place], [place] [id number] PCP - General Internal Medicine 05/30/21
[2025-01-14 15:30] LABS: Creatinine Urine 74.8 mg/dL; Total Protein Urine Random 28 mg/dL; Ur Ttl Prot Creatinine Ratio 0.37 mg/mg (0-0.20)
[2025-01-14 15:31] LABS: Anion Gap 10 mmol/L (4-12); Blood Urea Nitrogen 23 mg/dL (7-17); Calcium 8.6 mg/dL (8.4-10.2); Carbon Dioxide 24 mmol/L (22-30); Chloride 97 mmol/L (98-107); Estimated Glomerular Filt Rate 39; Glucose < 30 mg/dL (65-110); Phosphorus 4.5 mg/dL (2.5-4.5); Potassium 4.5 mmol/L (3.4-5.0); Sodium 131 mmol/L (137-145)
[2025-01-14 15:45] LABS: Parathyroid Intact 55.7 pg/mL (14.5-75.2)
[2025-01-14 16:14] LABS: Vitamin D 25 Hydroxy 58.5 ng/mL
== END 2025-01-14 13:41 | disposition home or self-care (01) ==
LOC: ANHLAB 13:45 → HOME HLTH 13:59
PROVIDERS: PCP Nurse Practitioner; Visit Provider Internal Medicine Nephrology
DX: N25.81 Secondary hyperparathyroidism of renal origin (principal); I12.9 Hypertensive chronic kidney disease with stage 1 through stage 4 chronic kidney disease, or unspecified chronic kidney disease; N18.32 Chronic kidney disease, stage 3b; E55.9 Vitamin D deficiency, unspecified
CPT/HCPCS: 80069; 82306; 82570; 83970; 84156

== ENCOUNTER 2025-01-16 10:17 | Inpatient (IN) | payer MEDICARE, SELFPAY ==
[2025-01-16] VITALS (29 sets, daily range): BP systolic 79–113; BP diastolic 44–93; PULSE 72–93; RESP 13–24; TEMP 35.8–36.4; O2SAT 98–100; BMI 33.2
--- NOTE | ~2025-01-16 | CT_ITS ---
EXAMINATION: CT knee LT wo con DATE: 01/16/2025 13:08 INDICATION: Possible tibial plateau fracture post fall TECHNIQUE: High resolution computed tomography (CT) of the left knee was performed without intravenou s contrast. Additional sagittal and coronal reconstructions were performed. Automated exposure contro l and iterative reconstruction technique were employed. The dose-length product was 688.76 mGy-cm. COMPARISON: 01/16/2025 FINDINGS: Chronic sagittal oriented intra-articular fracture of the distal left femur which is healed in essent ially anatomic alignment with lateral plate and screw fixation. There is curvilinear sclerosis appear ance suggesting localized thickening of the trabecular pattern which underlies a large portion of the anterior two thirds of the medial tibial plateau. No evident cortical interruption or lucent fractur e line or appreciable increased density immediately adjacent fatty marrow to suggest edema in the set ting of fracture and this more likely represents either a subarticular osteonecrosis/bone infarct or healing fracture mild tricompartmental osteoarthritis at the right knee with no knee joint effusion. There is prominent diffuse subcutaneous edema extending from the visualized distal thigh through the visualized proximal calf. Scattered mild to moderate fatty atrophy of the visualized musculature. IMPRESSION: 1. Curvilinear subarticular sclerosis underlying the significant portion of the medial tibial plateau without evident acute appearing fracture line or associated marrow edema which could represent eithe r chronic osteochondral lesion/bone infarct or old fracture. Could consider further evaluation with M RI if there is high suspicion for acute fracture. Reviewed, dictated and finalized at location A. IMPRESSION: 1. Curvilinear subarticular sclerosis underlying the significant portion of the medial tibial plateau without evident acute appearing fracture line or associa opal marrow edema which could represent either chronic osteochondral lesion/bone infarct or old fracture. Could consider further evaluation with MRI if there i s high suspicion for acute fracture.
--- NOTE | ~2025-01-16 | XR_ITS ---
XR chest 2V 01/16/2025 12:35 Indication: Swelling. CHF. Procedure: 2 view chest Comparison: Comparison to multiple prior studies sequentially, with oldest reviewed study dated 02/2024. Findings: Cardiomegaly with mild interstitial edema. Small right pleural effusion. No pneumothorax. N o acute osseous abnormality. Impression: 1: Mild interstitial edema. 2: Small right pleural effusion. Reviewed, dictated and finalized at location A. Impression: 1: Mild interstitial edema. 2: Small right pleural effusion.
--- NOTE | ~2025-01-16 | XR_ITS ---
EXAMINATION: [id number] DATE: 01/20/2025 16:55 INDICATION: Right pleural effusion postthoracentesis TECHNIQUE: AP and lateral views of the chest were obtained. COMPARISON: 01/16/2025 FINDINGS: There are small bilateral pleural effusions with blunting at the posterior sulci but not the costophr enic angles. Opacities in the dependent lower lungs most likely associated atelectasis versus less li jose pneumonia. Remainder the lungs are clear with no pulmonary edema. No pneumothorax. Cardiomegaly. Curvilinear pericardial calcifications. Partially visualized old healed right humeral diaphyseal fra cture deformity. IMPRESSION: 1. Small bilateral pleural effusions with dependent bibasilar atelectasis and/or pneumonia. 2. Cardia megaly with pericardial calcifications. Reviewed, dictated and finalized at location A. IMPRESSION: 1. Small bilateral pleural effusions with dependent bibasilar atelectasis and/o r pneumonia. 2. Cardia megaly with pericardial calcifications.
--- NOTE | ~2025-01-16 | US_ITS ---
EXAMINATION:US venous doppler LE BI INDICATION:Leg pain and bilateral edema TECHNIQUE: Multiple grayscale, color flow and Doppler images of the right and left lower extremity de ep venous systems were obtained and reviewed. COMPARISON:Ultrasound dated 10/22/2023 FINDINGS: The common femoral, superficial femoral and popliteal veins demonstrate normal respiratory variation, augmentation and compressibility. Color flow is also seen within the posterior tibial, pe roneal, greater saphenous and profunda veins. IMPRESSION: 1: No lower extremity deep venous thrombosis. Reviewed, dictated and finalized at location A.
--- NOTE | ~2025-01-16 | CT_ITS ---
Clinical Indication: Dyspnea, abdominal distention CT Scan of the Chest, Abdomen, and Pelvis without Contrast: Technique: Contiguous sections were acquired throughout the chest, abdomen, and pelvis without IV con trast administration. Dose reduction technique was used on this scan by utilizing automated exposure control and iterative reconstruction technique. The dose-length product (DLP) was 1360.54 mGy-cm. Comparison: 01/16/2025 Findings: There is no evidence of any significant mediastinal, hilar or axillary lymphadenopathy. Extensive ath erosclerotic calcifications of the aorta and coronary arteries are present. There is pericardial thic kening and calcification. Large right pleural effusion present. Small left pleural effusion present. There is bibasilar depende nt atelectatic change. There is a focal groundglass opacity in the right upper lobe measuring 12 mm i n diameter (axial image 20). Liver small and diffusely nodular in contour, compatible cirrhosis. Small calcified gallstones are pr esent. Small calcified common duct stones are present, unchanged. The spleen, pancreas, adrenals and kidneys are within normal limits. There are extensive atherosclerotic calcifications of the aorta and iliac vessels. No lymphadenopathy. No bowel obstruction or bowel wall thickening. There is no evidence to suggest acute appendicitis. Urinary bladder is unremarkable. No pelvic mass evident. Small amount of abdominopelvic ascites prese nt. There is diffuse soft tissue anasarca change. Compression fractures throughout the lumbar spine a re unchanged. Impression: Large irregular probable effusion and small left pleural effusion with bibasilar atelectatic change. 12 mm groundglass opacity right upper lobe, which could reflect focal edema or atelectatic change. Co rrelate clinically or focal pneumonitis. Cirrhotic liver with small amount of ascites and diffuse soft tissue anasarca. Cholelithiasis and choledocholithiasis, unchanged. Extensive atherosclerotic disease, as above. Reviewed, dictated and finalized at location M. Impression: Large irregular probable effusion and small left pleural effusion with bibasila r atelectatic change. 12 mm groundglass opacity right upper lobe, which could reflect focal edema or atelectatic change. Correlate clinically or focal pneumonitis. Cirrhotic liver with small amount of ascites and diffuse soft tissue anasarca. Cholelithiasis and choledocholithiasis, unchanged. Extensive atherosclerotic disease, as above.
--- NOTE | ~2025-01-16 | CT_ITS ---
CLINICAL INDICATION: Abdominal pain and swelling. Patient initially presented after a fall. COMPARISON: 10/31/2024. TECHNIQUE: Multiple contiguous axial images of the abdomen and pelvis were performed following the ad ministration of with 100 mL Omnipaque-350 intravenous contrast The dose-length product (DLP) was 779.06 mGy-cm. Automated exposure control and iterative reconstruction technique were employed. FINDINGS/OBSERVATIONS: Visualized lower thorax: Right-sided pleural effusion with adjacent compressive atelectasis. The remainder of the bilateral lung freeman are clear. The heart is of normal size. Calcification of the pericardium is also detected, unchanged from prior. Small hiatal hernia is present. Liver: The liver is decreased in size and nodular in contour consistent with portal hypertension. Gallbladder and biliary system: The gallbladder contains multiple calcified stones, but is otherwise unremarkable. The common bile duct is somewhat distended, and contains a 4 mm calculus, possibly causing the patien t's symptoms. Pancreas: The pancreas enhances homogeneously without ductal dilatation. Spleen: The spleen enhances homogeneously and is enlarged measuring 13 cm in longitudinal dimension. Kidneys: The bilateral kidneys enhance symmetrically without hydronephrosis or renal calculi. Adrenal glands: Unremarkable. Gastrointestinal tract: Colonic diverticulosis. Appendix: The appendix is not definitively visualized. However, no pericecal inflammatory change is identified suggest the presence of acute appendicitis. Vasculature: Densely calcified atherosclerotic disease. Lymph nodes: No pathologically enlarged or morphologically suspicious lymph nodes within the retroperitoneum or at the root of the mesentery. Pelvic structures: The bladder is only minimally distended, and demonstrates thickened vidal, likely secondary to underd istention. The uterus is either surgically absent or markedly atrophic. Trace intra-abdominal and intrapelvic ascites, an interval change from prior. Body wall and musculoskeletal: Small fat-containing umbilical hernia. Age advanced degenerative disease within the lumbosacral spine with compression fractures at the leve l of L5, L4 and L2 (unchanged). Prosthetic right hip with periprosthetic fracture and callus formation. IMPRESSION: Prominence of the common bile duct with a 4 mm stone in the distal common bile duct. Multiple calcifications have been identified within the ivan hepatis on prior studies, without defin itive ductal obstruction, present on the current examination secondary to positioning and technique. Remaining findings within the lower chest, abdomen and pelvis are chronic and unchanged from prior st udy, as detailed above. Reviewed, dictated and finalized at location A. IMPRESSION: Prominence of the common bile duct with a 4 mm stone in the distal common bile duct. Multiple calcifications have been identified within the ivan hepatis on prior studies, without definitive ductal obstruction, present on the current examinat ion secondary to positioning and technique. Remaining findings within the lower chest, abdomen and pelvis are chronic and u nchanged from prior study, as detailed above.
--- NOTE | ~2025-01-16 | XR_ITS ---
XR knee LT min 4V 01/16/2025 12:35 Indication: Left knee pain and swelling status post fall Procedure: 4 views left knee Comparison: 06/06/2021 Findings: There is a healed distal femoral fracture transfixed by side plate and multiple screws. The re is atherosclerosis. There is sclerosis involving the medial tibial plateau with subtle lucencies a t the articular surface, compatible with nondisplaced tibial plateau fracture. There is a small joint effusion. Impression: 1: Medial tibial plateau fracture without significant depression. Recommend correlation with CT or MR I. Reviewed, dictated and finalized at location A. Impression: 1: Medial tibial plateau fracture without significant depression. Recommend cor relation with CT or MRI.
--- NOTE | ~2025-01-16 | XR_ITS ---
EXAMINATION: XR abdomen/kub 1V DATE: 01/21/2025 15:20 INDICATION: Abdominal pain TECHNIQUE: A supine view of the abdomen on 2 radiographs was obtained. COMPARISON: CT dated 01/20/2025 FINDINGS: Moderate amount of gas and stool scattered throughout the colon. Small amount of stool scattered thro ughout nondilated small bowel. No dilated loops of gas-filled bowel to suggest obstruction. Visualize d lower lungs are clear. Heart size is normal. Curvilinear pericardial calcifications at the base of the heart. Partially visualized right total hip arthroplasty. IMPRESSION: 1. Nonspecific nonobstructive bowel gas pattern. Reviewed, dictated and finalized at location B.
--- NOTE | ~2025-01-16 | US_ITS ---
EXAMINATION: US thoracentesis DATE: 01/20/2025 17:12 INDICATION: Right pleural effusion TECHNIQUE: The procedure and its risks and benefits were discussed with the patient. Potential risks discussed included bleeding, infection, and pneumothorax. The patient understood the risks and agreed to proceed. The skin was prepped and draped in sterile fashion. 1% lidocaine was used for local anes thesia. Under ultrasound guidance, a 5 Fr catheter with trochar was advanced into the right pleural e ffusion. Fluid was aspirated. The catheter was removed, and a dressing was applied. There were no imm ediate complications. FINDINGS: Ultrasound images demonstrate a small pleural effusion and the catheter within the fluid. IMPRESSION: 1. Successful ultrasound-guided thoracentesis yielding 1000 mL of yellow fluid. Reviewed, dictated and finalized at location A. IMPRESSION: 1. Successful ultrasound-guided thoracentesis yielding 1000 mL of yellow fluid .
--- NOTE | 2025-01-16 10:48 | PC.NURSE ---
wound to left buttock. Foul odor from wound noted along with brownish gill[place]and drainage noted on previous dressing. [facility] with L[facility] she said she will put pt on her list and come and evaluate wound
--- NOTE | 2025-01-16 10:55 | ECG_ITS ---
Test Date: 2025-01-16 11:06:04 Measurements Intervals [place] Rate: 73 P: 0 MN: 0 QRS: 106 QRSD: 77 T: -1 QT: 403 QTc: 446 Interpretive Statements SINUS RHYTHM WITH ATRIAL PREMATURE COMPLEX RIGHT AXIS DEVIATION LOW QRS VOLTAGE- DIFFUSE LEADS POSSIBLE ANTERIOR MYOCARDIAL INFARCTION , OF INDETERMINATE AGE BASELINE ARTIFACT- I, II, III, AVR, AVL, AVF, V1-V6 ABNORMAL ECG Compared to ECG 11/02/2024 15:42:00 HEART RATE HAS DECREASED Electronically Signed On 01-16-2025 11:12:07 CDT by Joshua Rg D.O.
--- NOTE | 2025-01-16 10:56 | ED_ITS ---
HPI - Fall General Chief Complaint: Fall <SREE Hollins Last Filed: 01/16/25 17:02> Stated Complaint: fall - LE pain <SREE Hollins Last Filed: 01/16/25 17:02> Time Seen by Provider: 01/16/25 10:21 <SREE Hollins Last Filed: 01/16/25 17:02> Source: patient, EMS and old records reviewed <SREE Hollins Last Filed: 01/16/25 17:02> Mode of arrival: ambulatory <RSEE Hollins Last Filed: 01/16/25 17:02> Limitations: no limitations <SREE Hollins Last Filed: 01/16/25 17:02> History of Present Illness HPI Narrative: Patient is a 69-year-old female, with PMH of CHF, DM, chronic orthostatic hypotension, alcoholism, cirrhosis, who presents the ED via EMS with multiple complaints. Patient reportedly had a fall around 4:00 a.m. this morning. She states she was attempting to get into a chair when she misjudged how far away the chair was, causing her to fall. She states her left leg bent awkwardly in the fall. Initally had trouble getting off the ground d/t pain/weakness. EMS was called for lift assist but patient declined transport at that time. Home health care then came to patient's house and patient was unable to bear any weight on her left leg. EMS was then called to bring the patient here. Complains of pain to her left hip and left knee. She notes previous history of left tibial fracture in November. Patient was recently discharged from [facility] for rehab back home. She has home health care 2 days a week. She does not have any other help at home currently. She has been having increased weakness and swelling in her lower extremities and abdomen recently. Denies abdominal or leg pain currently. Denies chest pain or shortness of breath. Denies numbness. Patient noted to have sacral pressure ulcer and ulcer to right heel, which she has previously seen wound care for. <SREE Hollins Last Filed: 01/16/25 17:02> Related Data Home Medications: Home Medications ?Medication ?Instructions ?Recorded ?Confirmed ?Last Taken ?Type fluticasone propionate 50 1 spray intranasal DAILY PRN 08/16/20 10/31/24 08/16/20 History mcg/actuation nasal allergies spray,suspension mecobalamin (vitamin B12) 1,000 3,000 mcg PO DAILY 05/13/21 10/31/24 10/19/23 History mcg chewable tablet pyridoxine (vitamin B6) 100 mg 100 mg PO DAILY 05/13/21 10/31/24 10/19/23 History tablet magnesium oxide 400 mg (241.3 mg 250 mg PO QAM 06/06/21 10/31/24 10/19/23 History magnesium) tablet ascorbate calcium (vitamin C) 500 500 mg PO DAILY 06/20/24 10/31/24 Unknown History mg tablet aspirin 81 mg tablet,delayed 81 mg PO DAILY 06/20/24 10/31/24 Unknown History release bumetanide 1 mg tablet 0.5 mg PO BID 06/20/24 10/31/24 Unknown History folic acid 800 mcg tablet 0.8 mg PO DAILY 06/20/24 10/31/24 Unknown History tacrolimus 0.03 % topical ointment 1 applic topical BID 08/06/24 10/31/24 Unknown History metolazone 2.5 mg tablet 2.5 mg PO DAILY 10/31/24 10/31/24 Unknown History acyclovir 5 % topical cream 1 applic topical DAILY 01/16/25 01/16/25 Unknown History (Zovirax) albuterol sulfate 2.5 mg/3 mL 2.5 mg inhalation Q8H PRN 01/16/25 01/16/25 Unknown History (0.083 %) solution for nebulization shortness of breath or wheezing collagenase clostridium histo. 250 1 applic topical DAILY 01/16/25 01/16/25 Unknown History unit/gram topical ointment (Santyl) collagenase clostridium histo. 250 1 applic topical DAILY 01/16/25 01/16/25 Unknown History unit/gram topical ointment (Santyl) ferrous sulfate 325 mg (65 mg 325 mg PO DAILY 01/16/25 01/16/25 Unknown History iron) tablet (Leonard-Time) furosemide 40 mg tablet 40 mg PO DAILY 01/16/25 01/16/25 Unknown History insulin lispro 100 unit/mL 3 unit subcut TID 01/16/25 01/16/25 Unknown History subcutaneous pen (Humalog KwikPen (U-100) Insulin) lanolin alcohols-mineral 1 applic topical DAILY 01/16/25 01/16/25 Unknown History oil-w.petrolatum-ceresin topical cream loperamide 2 mg capsule 2 mg PO QID PRN loose stool 01/16/25 01/16/25 Unknown History (Anti-Diarrheal (loperamide)) midodrine 10 mg tablet 10 mg PO TID PRN dizziness or 01/16/25 01/16/25 Unknown History vertigo ondansetron 4 mg disintegrating 4 mg PO Q6H PRN nausea and vomiting 01/16/25 01/16/25 Unknown History tablet pantoprazole 40 mg tablet,delayed 40 mg PO BID 01/16/25 01/16/25 Unknown History release sennosides 8.6 mg tablet (senna) 8.6 mg PO DAILY PRN constipation 01/16/25 01/16/25 Unknown History <Digna Albarado PA-C - Last Filed: 01/16/25 17:02> Allergies/Adverse Reactions: Allergies Allergy/AdvReac Type Severity Reaction Status Date / Time codeine AdvReac Unknown Headache Verified 01/16/25 10:28 <Digna Albarado PA-C - Last Filed: 01/16/25 17:02> Review of Systems 2 Review of Systems: All systems reviewed & are unremarkable except as noted in HPI. <Digna Albarado PA-C - Last Filed: 01/16/25 17:02> All systems reviewed & are unremarkable except as noted in HPI and below < Digna Albarado PA-C - Last Filed: 01/16/25 17:02> [facility] Past Medical History Medical History: Medical History Alcoholic cirrhosis of liver Chronic venous insufficiency of lower extremity Stage 3a chronic kidney disease Shingles ANTHONY (obstructive sleep apnea) Osteoporosis Gram-negative bacteremia Anemia of chronic disease Ascites Obesity (BMI 30-39.9) Hyperlipidemia, unspecified Carotid artery disease Alcohol abuse Osteoarthritis Diastolic dysfunction ECHO 10/2023: normal LV systolic function, estimated EF of 60-65%, abnormal diastolic dysfunction. Left-sided carotid artery disease US 01/2021: 50 to 69% stenosis of the left ICA. Orthostatic hypotension on midodrine, chronic hypotension, previously caused syncope and frequent falls and subsequent fractures. Insulin dependent type 2 diabetes mellitus A1C 5.1% 08/2024 Hypertension Chronic hyponatremia Eczema Periprosthetic fracture of femur following total replacement of hip (01/2020) Non operative treatment. GERD (gastroesophageal reflux disease) <Digna Albarado PA-C - Last Filed: 01/16/25 17:02> Surgical History Surgical History: Surgical History Status post open reduction with internal fixation of fracture (05/30/21) ORIF of comminuted intra-articular fracture of the distal left femur, done at [facility]. History of hysterectomy (2005) Due to uterine fibroids and endometriosis. History of bilateral cataract extraction History of lumbar surgery (2005) L1-L3. History of right hip replacement (2005) Per Dr. Curiel in [place]. <Digna Albarado PA-C - Last Filed: 01/16/25 17:02> Family History Family History: Family History Father Heart attack Mother Diabetes mellitus COPD (chronic obstructive pulmonary disease) Hypertension Afib Sibling Amputation above knee Diabetes mellitus Father , At age 50 Acute myocardial infarction Sibling , At age 50 Pancreatic cancer <Digna Albarado PA-C - Last Filed: 01/16/25 17:02> Social History Social History: Social History Social History: The patient lives in her own home in [place]. She has been twice, her 1st and she has since her 2nd . She has no children. She moved to this area within the last couple of years from [place] to be close to her 3 remaining siblings. She worked from home for a [employer] doing [employer]OM[employer] and she has a master's degree in statistics. She has recently retired.She smoked up to 2 packs of cigarettes a day before quitting in 2005. She drinks 2 mixed drinks a day, each containing a shot of vodka which equals out to about 1 L to 1.7 L of vodka a week. She denies illicit substance use. Surrogate decision maker: Miladys Jensen, sister. Code status: Full code. Smoking packs per day: 2 Smoking cigarettes per day: 40.0 Years smoked: 30 Smoking pack-years: 60.00 Smoking status: Former smoker Tobacco type: cigarettes Smokeless tobacco user: chewing tobacco Second hand tobacco smoke exposure: Yes Alcohol intake: current Drinks per week: 14 Substance use: never Substance use type: does not use Do You Feel Safe in your Home?: Yes Lack of Transportation: No Lack of Food: Never True Current Housing: I Have Housing Concerned About Future Housing: No Difficulty Paying Gas/Electric Bills: No Difficulty Paying for Meds: No Currently Unemployed: No Education: Master's Degree or Higher Difficulty w/ Childcare or Family Care: No Living arrangements: alone Occupation/Education: retired Gender identity (if verbalized by the patient): Female Sexual Orientation (if Verbalized by the Patient): Straight or Heterosexual Spiritual care concerns: No <Digna Albarado PA-C - Last Filed: 01/16/25 17:02> Exam 2 Narrative: GENERAL: Chronically ill-appearing, obese with BMI of 32.5, non-toxic, in no acute distress. HEAD: Normocephalic, atraumatic. RESPIRATORY: Airway patent, respirations mildly tachypneic but nonlabored. Clear to auscultation bilaterally, no rales, rhonchi, wheezing. No significant focal lung sounds. CARDIOVASCULAR: Regular rate and rhythm without murmurs, rubs, or gallops. ABDOMINAL: Abdomen is somewhat distended and bloated, soft, no significant focal tenderness. Normoactive BS. MUSCULOSKELETAL: Diffuse edema in BLE from thighs down. Wraps present to BLE. Circular ulcerated region to R heel with some granulation tissue present, no significant drainage. Large circular pressure ulcer to sacrum with central area of purulent drainage/possible tunneling. TTP along L proximal tibia, inferior knee joint. No appreciable swelling in knee. No significant focal reproducible tenderness over L hip. SKIN: Warm, dry, normal color. NEURO: A&O X3. Speech clear. Cranial nerves II-XII grossly intact. No ataxic movements. PSYCHIATRIC: Appropriate mood and affect. Normal interaction. <Digna Albarado PA-C - Last Filed: 01/16/25 17:02> Course TIRE SPOTTER/PA Physician Supervision For this patient encounter, I reviewed the TIRE SPOTTER or PA documentation, treatment plan, and medical decision making; and I had [id number] time with this patient. <Ramírez Vera MD - Last Filed: 01/16/25 17:47> Vital Signs Vital signs: Vital Signs Temperature 97.6 F 01/16/25 10:17 Pulse Rate 80 01/16/25 10:17 Respiratory Rate 15 01/16/25 10:17 Blood Pressure 88/46 L 01/16/25 10:17 Pulse Oximetry 100 01/16/25 10:17 Oxygen Delivery Room Air 01/16/25 10:17 Temperature 97.6 F 01/16/25 10:17 Pulse Rate 78 01/16/25 15:46 Respiratory Rate 18 01/16/25 15:46 Blood Pressure 101/54 L 01/16/25 15:46 Pulse Oximetry 100 01/16/25 15:46 Oxygen Delivery Room Air 01/16/25 10:17 <Digna Albarado PA-C - Last Filed: 01/16/25 17:02> Vital Signs Temperature 97.6 F 01/16/25 10:17 Pulse Rate 80 01/16/25 10:17 Respiratory Rate 15 01/16/25 10:17 Blood Pressure 88/46 L 01/16/25 10:17 Pulse Oximetry 100 01/16/25 10:17 Oxygen Delivery Room Air 01/16/25 10:17 Temperature 97.6 F 01/16/25 10:17 Pulse Rate 78 01/16/25 15:46 Respiratory Rate 18 01/16/25 15:46 Blood Pressure 101/54 L 01/16/25 15:46 Pulse Oximetry 100 01/16/25 15:46 Oxygen Delivery Room Air 01/16/25 10:17 <Ramírez Vera MD - Last Filed: 01/16/25 17:47> MDM - Fall MDM Narrative Medical decision making narrative: Patient presented to ED with multiple complaints, fall at home, left knee and hip pain, unable to ambulate, also reporting increased swelling in lower extremities. Patient recently had prolonged hospitalization here, approx 2 month stay at [facility], returned home last week with home health care. States she has not been doing well since being home. Patient initially hypotensive upon arrival into the 80 systolic. Fluid bolus ongoing. Patient does appear to chronically have soft BPs per records, hx of orthostatic hypotension. Will closely monitor. Venous Doppler ultrasound negative for DVT. X-ray left knee showing tibial plateau fracture. Recommended CT for further evaluation. Patient reports recent fracture of leg in November at the long term, no records here to compare to. CT of knee obtained and findings consistent with chronic fracture. CT of abdomen/pelvis in showing choledocholithiasis, multiple gallstones. Bilirubin within normal range. Patient denies abdominal pain at this time. No focal right upper quadrant tenderness. Cbc without leukocytosis. Chronic anemia noted, consistent with previous records. Hemoglobin today 8.1. Kidney function appears at baseline. Lactic acid 1.3. Liver enzymes within normal range. Alk-phos elevated to 339, though this appears chronic per patient. Laboratory markers are mildly elevated. Albumin low at 2.8. Will give albumin for intravascular volume depletion/BP support. BNP is elevated to 8740. Chest x-ray with mild interstitial edema, small pleural effusion. Patient will be admitted for further evaluation and management. Care coordination consult for likely permanent long term placement. Patient has been home from the long term for less than 1 week and is having trouble caring for herself, multiple falls, worsening swelling. Blood pressure has been soft throughout ED stay. Maintaining maps above 65. Patient reports she was started on carvedilol 6.25 mg within the last 1 week by GI. She did take a dose of this today. She is also prescribed midodrine 10 mg t.i.d. p.r.n. for systolic blood pressure less of 100. She has not had any doses of this today. Given this in the ED with improvement of BPs to low 100s. Discussed case with SEMAJ Eric, will consult for ERCP. Discussed case with Kathleen Dc TIRE SPOTTER hospitalist, accepted patient for admission. Patient in agreement with plan. Care coordination consult placed. Wound care also consulted for pressure ulcers. <Digna Albarado PA-C - Last Filed: 01/16/25 17:02> Medical Records Attestation: I reviewed the patient's medical records. <Digna Albarado PA-C - Last Filed: 01/16/25 17:02> Lab Data Attestation: I reviewed the patient's lab results. <Digna Albarado PA-C - Last Filed: 01/16/25 17:02> Result diagrams: 01/16/25 11:08 01/16/25 11:08 <Digna Albarado PA-C - Last Filed: 01/16/25 17:02> Labs: Lab Results 01/16/25 01/16/25 01/16/25 Range/Units 11:07 11:08 11:51 WBC 7.2 (4.5-10.0) K/mm3 RBC 2.62 L (4.2-5.4) M/mm3 Hgb 8.1 L (12.0-15.0) g/dL Hct 25.8 L (37.0-47.0) % MCV 98.5 (80-100) fl MCH 30.9 (26-34) pg MCHC 31.4 L (32-36) g/dl RDW 15.0 H (11.5-14.5) % Plt Count 225 D (150-375) k/mm3 MPV 10.6 H (7.4-10.4) fl Immature Gran % (Auto) 0.7 H (0-0.5) % Neut % (Auto) 73.4 H (45.5-73.1) % Lymph % (Auto) 9.1 L (18.3-44.2) % [place] % (Auto) 9.3 H (2.6-8.5) % Eos % (Auto) 6.8 H (0-4.4) % Baso % (Auto) 0.7 (0.2-1.2) % Lymph # (Auto) 0.65 L (0.9-3.2) K/mm3 [place] # (Auto) 0.7 H (0.1-0.6) K/mm3 Eos # (Auto) 0.5 H (0-0.3) K/mm3 Baso # (Auto) 0.1 (0.0-0.1) K/mm3 Abs Immat Gran (auto) 0.05 H (0.00-0.031) K/mm3 Absolute Neuts (auto) 5.3 (1.3-6.7) K/mm3 Absolute Nucleated RBC 0.000 (0.0-0.012) K/mm3 Nucleated RBC % 0.0 (0.0-0.2) % ESR 79 H (0-20) mm/hr PT 16.3 H (11.1-14.7) Seconds INR 1.3 APTT 38.6 H (22.3-36.8) Seconds Sodium 131 L (137-145) mmol/L Potassium 4.3 (3.4-5.0) mmol/L Chloride 100 (98-107) mmol/L Carbon Dioxide 22 (22-30) mmol/L Anion Gap 9 (4-12) mmol/L BUN 28 H (7-17) mg/dL Creatinine 1.45 H (0.7-1.0) mg/dL Estim Creat Clear Calc 36 ml/min Estimated GFR 36 L (59 - ) Glucose 102 (65-110) mg/dL Lactic Acid 1.3 (0.7-2.0) mmol/L Calcium 8.0 L (8.4-10.2) mg/dL Total Bilirubin 0.9 (0.2-1.3) mg/dL AST 25 (14-36) U/L ALT 20 (6-35) U/L Alkaline Phosphatase 339 H (38-126) U/L C-Reactive Protein 5.2 H (<1.0) mg/dL NT-Pro-B Natriuret Pep 8740 H (19.9-100) pg/mL Total Protein 6.0 L (6.3-8.2) g/dL Albumin 2.8 L (3.5-5.1) g/dL Urine Color Yellow (Yellow) Urine Appearance Clear (Clear) Urine pH 5.5 (5.0-9.0) Ur Specific [place] 1.011 (1.001-1.035) Urine Protein Negative (Negative) mg/dL Urine Glucose (UA) 1+ H (Negative) mg/dL Urine Ketones Negative (Negative) mg/dL Ur Blood (Man) Negative (Negative) Urine Nitrate Negative (Negative) Urine Bilirubin Negative (Negative) Urine Urobilinogen 0.2 (<2.0) mg/dL Leukocyte Esterase Rfl Negative (Negative) YISEL/UL <Digna Albarado PA-C - Last Filed: 01/16/25 17:02> Lab Results 01/16/25 01/16/25 01/16/25 Range/Units 11:07 11:08 11:51 WBC 7.2 (4.5-10.0) K/mm3 RBC 2.62 L (4.2-5.4) M/mm3 Hgb 8.1 L (12.0-15.0) g/dL Hct 25.8 L (37.0-47.0) % MCV 98.5 (80-100) fl MCH 30.9 (26-34) pg MCHC 31.4 L (32-36) g/dl RDW 15.0 H (11.5-14.5) % Plt Count 225 D (150-375) k/mm3 MPV 10.6 H (7.4-10.4) fl Immature Gran % (Auto) 0.7 H (0-0.5) % Neut % (Auto) 73.4 H (45.5-73.1) % Lymph % (Auto) 9.1 L (18.3-44.2) % [place] % (Auto) 9.3 H (2.6-8.5) % Eos % (Auto) 6.8 H (0-4.4) % Baso % (Auto) 0.7 (0.2-1.2) % Lymph # (Auto) 0.65 L (0.9-3.2) K/mm3 [place] # (Auto) 0.7 H (0.1-0.6) K/mm3 Eos # (Auto) 0.5 H (0-0.3) K/mm3 Baso # (Auto) 0.1 (0.0-0.1) K/mm3 Abs Immat Gran (auto) 0.05 H (0.00-0.031) K/mm3 Absolute Neuts (auto) 5.3 (1.3-6.7) K/mm3 Absolute Nucleated RBC 0.000 (0.0-0.012) K/mm3 Nucleated RBC % 0.0 (0.0-0.2) % ESR 79 H (0-20) mm/hr PT 16.3 H (11.1-14.7) Seconds INR 1.3 APTT 38.6 H (22.3-36.8) Seconds Sodium 131 L (137-145) mmol/L Potassium 4.3 (3.4-5.0) mmol/L Chloride 100 (98-107) mmol/L Carbon Dioxide 22 (22-30) mmol/L Anion Gap 9 (4-12) mmol/L BUN 28 H (7-17) mg/dL Creatinine 1.45 H (0.7-1.0) mg/dL Estim Creat Clear Calc 36 ml/min Estimated GFR 36 L (59 - ) Glucose 102 (65-110) mg/dL Lactic Acid 1.3 (0.7-2.0) mmol/L Calcium 8.0 L (8.4-10.2) mg/dL Total Bilirubin 0.9 (0.2-1.3) mg/dL AST 25 (14-36) U/L ALT 20 (6-35) U/L Alkaline Phosphatase 339 H (38-126) U/L C-Reactive Protein 5.2 H (<1.0) mg/dL NT-Pro-B Natriuret Pep 8740 H (19.9-100) pg/mL Total Protein 6.0 L (6.3-8.2) g/dL Albumin 2.8 L (3.5-5.1) g/dL Urine Color Yellow (Yellow) Urine Appearance Clear (Clear) Urine pH 5.5 (5.0-9.0) Ur Specific [place] 1.011 (1.001-1.035) Urine Protein Negative (Negative) mg/dL Urine Glucose (UA) 1+ H (Negative) mg/dL Urine Ketones Negative (Negative) mg/dL Ur Blood (Man) Negative (Negative) Urine Nitrate Negative (Negative) Urine Bilirubin Negative (Negative) Urine Urobilinogen 0.2 (<2.0) mg/dL Leukocyte Esterase Rfl Negative (Negative) YISEL/UL <Ramírez Vera MD - Last Filed: 01/16/25 17:47> Imaging Data Attestation: I personally reviewed and interpreted this imaging study as follows: < Digna Albarado PA-C - Last Filed: 01/16/25 17:02> Radiologist's impression: ITS Impressions Venous Doppler Study 01/16/25 11:37 IMPRESSION: 1: No lower extremity deep venous thrombosis. Chest X-Ray 01/16/25 12:37 Impression: 1: Mild interstitial edema. 2: Small right pleural effusion. Knee X-Ray 01/16/25 12:39 Impression: 1: Medial tibial plateau fracture without significant depression. Recommend correlation with CT or MRI. Abdomen/Pelvis CT 01/16/25 12:46 IMPRESSION: Prominence of the common bile duct with a 4 mm stone in the distal common bile duct. Multiple calcifications have been identified within the ivan hepatis on prior studies, without definitive ductal obstruction, present on the current examination secondary to positioning and technique. Remaining findings within the lower chest, abdomen and pelvis are chronic and unchanged from prior study, as detailed above. Knee CT 01/16/25 13:11 IMPRESSION: 1. Curvilinear subarticular sclerosis underlying the significant portion of the medial tibial plateau without evident acute appearing fracture line or associated marrow edema which could represent either chronic osteochondral lesion/bone infarct or old fracture. Could consider further evaluation with MRI if there is high suspicion for acute fracture. <Digna Albarado PA-C - Last Filed: 01/16/25 17:02> ECG Data EKG #1: Attestation: I personally reviewed and interpreted this ECG as follows: <Digna Albarado PA-C - Last Filed: 01/16/25 17:02> ECG completion date: 01/16/25 <Digna Albarado PA-C - Last Filed: 01/16/25 17:02> ECG completion time: 11:06 <Digna Albarado PA-C - Last Filed: 01/16/25 17:02> EKG Interpretation: normal rate (73), sinus rhythm, PACs and other (diffuse baseline artifact) <SREE Hollins Last Filed: 01/16/25 17:02> Discharge Plan Discharge Clinical Impression: Fall from ground level, Unstable gait, Pressure ulcer, heel, right, unstageable, Choledocholithiasis, Localized swelling of both lower legs Pressure ulcer of sacral region Qualifiers: Pressure injury stage: unspecified pressure injury stage Qualified Code(s): L 89.159 - Pressure ulcer of sacral region, unspecified stage Hypotension Qualifiers: Hypotension type: unspecified hypotension type Qualified Code(s): I95.9 - Hypotension, unspecified Strain of left knee and leg Qualifiers: Encounter type: initial encounter Qualified Code(s): S86.912A - Strain of unspecified muscle(s) and tendon(s) at lower leg level, left leg, initial encounter <Digna Albarado PA-C - Last Filed: 01/16/25 17:02> Patient Disposition: Still a Patient <Digna Albarado PA-C - Last Filed: 01/16/25 17:02> Condition: Guarded Prognosis <Digna Albarado PA-C - Last Filed: 01/16/25 17:02>
--- NOTE | 2025-01-16 11:10 | ECG_ITS ---
Test Date: 2025-01-16 11:45:41 Measurements Intervals [place] Rate: 74 P: 36 UT: 197 QRS: 104 QRSD: 78 T: 23 QT: 422 QTc: 470 Interpretive Statements SINUS RHYTHM RIGHT AXIS DEVIATION LOW QRS VOLTAGE- DIFFUSE LEADS BORDERLINE ST-T WAVE ABNORMALITY- ANT/INF LEADS BASELINE ARTIFACT- I, II, III, AVR, AVL, V1-V6 BORDERLINE ECG Compared to ECG 01/16/2025 11:06:04 NO SIGNIFICANT CHANGE Electronically Signed On 01-16-2025 11:46:03 CDT by Joshua Rg D.O.
--- NOTE | 2025-01-16 11:13 | PC.NURSE ---
pt was given 1L bolus from EMS for hypotension
--- OUTSIDE RECORDS SUMMARY | 2025-01-16 11:21 | XMS_ITS ---
Author Organization [facility] Address [address] [place] [address] Care Team Providers Care Offender Job Retention Specialist Name Role Phone Ramesh Smith Primary Care Provider Dr. 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 confirmed Problem Polyneuropathy due to type 2 diabetes mellitus (104416277) Type 2 diabetes mellitus with diabetic polyneuropathy (E11.42) Active confirmed Problem Neurogenic claudication (209912986) Spinal stenosis, lumbar region with neurogenic claudication (M48.062) Active confirmed Problem Abnormal gait (38006127) Other abnormalities of gait and mobility (R26.89) Active confirmed Problem Malaise (292133300) Other malaise (R53.81) Active confirmed Problem Orthostatic hypotension (08509370) Orthostatic hypotension (I95.1) Active confirmed Problem Hypo-osmolality and or hyponatremia (214413780) Hypo-osmolality and hyponatremia (E87.1) Active confirmed Vital Signs Blood pressure systolic 130 mm Hg 08/30/20 23 Blood pressure diastolic 85 mm Hg 023 Respiratory Rate 16 /min 08/30/2023 Height 65 in 08/30/2023 Weight 192 lbs 08/30/2023 BMI 31.95 kg/m2 08/30/2023 Oximetry 100 % 08/30/2023 Encounters Encounter Location Date Provider Diagnosis [facility] [address] [address] 08/30/2023 Juan Alvarado Alcohol dependence, uncomplicated F10.20 [...] advised her to discuss this with her [employer] Dynamics Developer as too much increased free water intake [...] advised her to discuss this with her [employer] Dynamics Developer as too much increased free water intake could worsen her hyponatremia Hypo-osmolality and hyponatremia Follow- up with Nephrology Next Appt Details Follow Up: prn, Reason: Eval uation and Management Progress Notes * Lizzeth JOYhDOB:1955 (68 yo F)Acc No.[id number]:08/30/2023 PRODUCT EXPERT Neuro Patient: Lou Mandujano Provider: Saida Alvarado MD :1955 A ge:68 Y S ex:Female Date:08/30/2023 Address: [address], [facility] Pcp:Ramesh Smith Subjective: * Chief Complaints: * D izziness and gait disturbance * HPI: * Introduction: I had the pleasure of seeing Cornelio Joy, who presented for evaluation of the above complaints. She was referred by Dr. Harley at [facility]. She is a 68 year [...] her parents. * Social History: Former smoker. longterm history of alcohol dependence for last 25 [...] advised her to discuss this with her [employer] Dynamics Developer as too much increased free water intake could worsen her hyponatremia 9. H ypo-osmolality and hyponatremia Notes: Follow-up with Nephrology * Procedure Codes: G 8427 DOC MEDS VERIFIED W/PT OR HNE3194 FLU IMMUNIZE ORDER/SIBPI3095F ACP DISCUSS/DSCN MKR DOCD, Modifiers: 8P G9991 Pneum vax admin 60+G8417 BMI >=30 CALCUATE W/DELFCCCK7971I TOBACCO NON-DZXUR6160 BP SCR PRFRM RCMDD DEFIND SCR INTVL * Preventive Medicine: T his was a 60 minute visit with time spent in reviewing prior records, evaluation and management, and counseling. * Follow Up: p rn (Reason: Evaluation and Management) * Billing Information: * Visit Code: 31624 Office Visit, New Pt., Level 5. Modifiers: 25 * Procedure Codes: G8427 DOC MEDS VERIFIED W/PT OR RE. G8482 FLU IMMUNIZE ORDER/ADMIN. 1123F ACP DISCUSS/DSCN MKR DOCD. Modifiers: 8P G9991 Pneum vax admin 60+. G8417 BMI >=30 CALCUATE W/FOLLOWUP. 1036F TOBACCO NON-USER. G8783 BP SCR PRFRM RCMDD DEFIND SCR INTVL. * GER TESTER Sign off status: Completed true * Provider: Sadia Alvarado MD Date: 10/30/2022 Generated for Mare kathleen/Faxing/eTransmitting on: 0 01/16/2025 11:21 AM CDT History and Physical Notes * HPI (History of Present Illness) Category Sub-Category Detail Notes Category Not es *Introduction I had the pleasure o f seeing Lou Joy, who presented for evaluation of the above complaints. She was referred by Dr. Harley at [facility]. She is a 68 year [...]
--- OUTSIDE RECORDS SUMMARY | 2025-01-16 11:21 | XMS_ITS | Clinical Summary ---
Author Organization [facility] Address [address] [place] [address] Phone Care Team Providers Care Ota Name Role Phone Dariel Horvath DO Primary Care Provider [phone] Allergies Active Allergy Reactions Criticality Noted Date [...] 09/24/2019 Influenza Vaccine (#1) 2024 Care Teams Ota Relationship Specialty Start Date End Date Dariel Horvath DO [address] [facility] [address] [place] [address] PCP - General Internal Medicine 05/27/21
--- OUTSIDE RECORDS SUMMARY | 2025-01-16 11:21 | XMS_ITS ---
Author Organization [facility] Address [address] [place] [address] Care Team Providers Care Medication Administration Professional Name Role Phone Ramesh Smith Primary Care Provider UnavailDr. Juan Doherty Unavailable [phone] Wilfrido Harley Unavailable Unavailable [facility], Provider Unavailable Unavailab le Allergies Allergen (clinical drug ingredient) Drug/Non Drug Allergy documented on EMR Reaction Allergy Type Onset Date Status codeine Codeine Unknown Drug Allergy Active REASON FOR VISIT [facility] To [facility] Conversion Encounter Medications Medication SIG (Take, [...] Active Encounters Encounter Location Date Provider Diagnosis [facility] [address] [place] [address] 03/30/2024 Provider [facility] Plan Of Treatment No Information Progress Notes * Lizzeth ISLAShDOB:1955 (69 yo F)Acc No.[id number]:03/30/2024 Patient: Lou HARRIS Provider: Edel Taylor :1955 A ge:68 Y S ex:Female Date:03/30/2024 [facility] Pcp:Ramesh Smith Subjective: * Chief Complaints: * 1 . [facility] En[facility]. * Medical History: * Medications: [...] Procedure Codes: * Electronic signature of Prov kyar [facility] on 01/16/2025 at 11:21 AM CDT Sign off status: Pending * Provider: Edel Taylor Date: 0 03/30/2024 Generated for Mare kathleen/Tao/Rach on: 0 01/16/2025 11:21 AM CDT
--- OUTSIDE RECORDS SUMMARY | 2025-01-16 11:22 | XMS_ITS | Patient Health Record ---
Author Organization [facility] Address [address] [place] [address] Care Team Providers Care Store Merchandiser Name Role Phone Ramesh Smith Primary Care Provider UnavailDr. 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 confirmed Problem Chronic migraine without aura, non-intractable (161278890599229) Chronic migraine without aura, not intractable, without status migrainosus (G43.709) Active confirmed Problem Alcoholic polyneuropathy (0333455) 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 confirmed Problem Orthostatic hypotension (63904112) Orthostatic hypotension (I95.1) Active confirmed Problem Abnormal gait (58580273) Other abnormalities of gait and mobility (R26.89) Active confirmed Problem Malaise (766319818) Other malaise (R53.81) Active confirmed Problem Neurogenic claudication (995996563) Spinal stenosis, lumbar region with neurogenic claudication (M48.062) Active confirmed Encounters Encounter Location Date Provider Diagnosis [facility] [address] [place] [address] 03/30/2024 Provider [facility] Plan Of Treatment No Information Insurance Providers Payer Name Payer Address Payer Phone Subscriber Number Group Number Insured Name Patient Relationship to Insured Coverage Start Date Coverage End Date [employer] (Medicare) Attention Claims [address] [place] [address] [id number] Lou Islas Self - patient is the insured [employer] [address] [place] [id number] [phone] [id number] Lou Islas Self - patient is the insured Medical (General) History Medical History History ICD Code Obesity DM2 HLD HTN Osteoarthritis Osteoporosis Lumbar DDD GERD Chronic hyponatremia Mild CKD Liver cirrhosis Surgical History Surgery Date(Month/Year) R hip replacement L hip replacement Lumbar discectomy B cataract
--- OUTSIDE RECORDS SUMMARY | 2025-01-16 11:22 | XMS_ITS | Referral Summary ---
Author Organization [facility] Office Center Address [address] [place] [address] Care Team Providers Care Line Assigner Name Role Phone Augustus Birch MD Unavailable Ghanshyam Ruiz NP Primary Care Provider [phone] Encounters Date Type Department Care Team Description 01/14/2025 Telephone [facility] Cardiology [address] [place] [address] Carlitos Edmonds MD 12/26/2024 9:15 AM CDT - 12/26/2024 11:59 PM CDT Hospital Encounter [facility] MOB 1 DIAG IMG [address] [place] [address] Closed fracture of medial portion of left tibial plateau, initial encounter Discharge Disposition: Discharge to home or self care 12/26/2024 9:30 AM CDT Office Visit [facility] Orthopedics and Sports Medicine [address] [facility] [address] [place] [phone] Samara Soto PA Closed fracture of medial portion of left tibial plateau with routine healing, subsequent encounter (Primary Dx) 12/25/2024 9:30 AM CDT Office Visit [facility] Cardiology [address] [place] [phone] Bridget Nicholson NP Congestive heart failure, unspecified HF chronicity, unspecified heart failure type (HCC) (Primary Dx); Lymphedema of both lower extremities; Closed fracture of medial portion of left tibial plateau, initial encounter; Chronic venous insufficiency of lower extremity 11/27/2024 11:00 AM INTEGRATION SOLUTION ARCHITECT Office Visit [facility] Vascular at [address] [place] [address] Lexie Rucker MD Chronic venous insufficiency of lower extremity (Primary Dx) 11/26/2024 2:00 PM INTEGRATION SOLUTION ARCHITECT Ancillary Procedure [facility] Vascular and Vein Surgery at [address] [place] [address] Varicose veins of lower extremity with pain, bilateral; Other specified symptoms and signs involving the circulatory and respiratory systems 11/26/2024 1:00 PM INTEGRATION SOLUTION ARCHITECT Ancillary Procedure [facility] Vascular and Vein Surgery at [address] [place] [address] Varicose veins of lower extremity with pain, bilateral 11/25/2024 Orders Only [facility] Cardiology [address] [place] [address] Bridget Nicholson NP 11/21/2024 Telephone [facility] Nephrology at [address] [place] [address] Bravo Mckenzie MD 11/11/2024 5:12 PM INTEGRATION SOLUTION ARCHITECT - 11/20/2024 6:14 PM INTEGRATION SOLUTION ARCHITECT Hospital Encounter [facility] 5 Med Surg [address] [place] [address] Bravo Chino MD [place], MD Devorah Mejias [...] initial encounter [S82.132A] Discharge Disposition: Discharge to [facility] 11/07/2024 Orders Only [facility] Cardiology [address] [place] [address] Jc Schaffer MD 10/30/2024 Telephone [facility] Cardiology [address] [place] [address] Carlitos Edmonds MD from Last [...] mouth daily Active blood-glucose meter,continuous (Dexcom G6 Back Up Worker) [facility] Activ e thiamine (VITAMIN [...] 1 tablet (1 g total) by mouth stranding supervisor before breakfast 06/04/20 21 Active sodium zirconium [...] 11/29/2024 Assessment & Plan (11/29/2024 11:50 AM INTEGRATION SOLUTION ARCHITECT): Bilateral lower extremity chronic venous insufficiency with [...] Tobacco: Never Tobacco Cessation:Counseling Given: Not Answered [facility] Utilities Answer Date Recorded In the past 12 months has [employer], gas, oil, or water [employer] threatened to shut off services in your [...] How often do you attend chur or orthodoxy services? More than 4 times per year 11/12/2024 Do you belong to any clubs o r organizations such as scientology groups, unions, fraternal or athletic groups, or [...] any time in the past 12 m [facility], were you homeless or living in a intermediate (including now)? No 11/12/2024 Personal Safety Answer [...] 36.4 C (97.5 F) 11/20/2024 4:02 AM INTEGRATION SOLUTION ARCHITECT Respiratory Rate 18 11/20/2024 8:44 AM INTEGRATION SOLUTION ARCHITECT Oxygen Saturation 99% 12/25/2024 9:24 AM CDT [...] Read Routine (OP Routine) 11/26/2024 2:32 PM INTEGRATION SOLUTION ARCHITECT Varicose veins of lower extremity with pain, bilateral Other specified symptoms and signs involving the circulatory and respiratory systems US VENOUS REFLUX BILATERAL Routine 11/26/2024 2:32 PM INTEGRATION SOLUTION ARCHITECT Varicose veins of lower extremity with pain, bilateral POCT GLUCOSE DEVICE Routine 11/20/2024 5 :57 PM INTEGRATION SOLUTION ARCHITECT POCT GLUCOSE DEVICE Routine 11/20/2024 1 2:28 PM INTEGRATION SOLUTION ARCHITECT POCT GLUCOSE DEVICE Routine 11/20/2024 8 :57 AM INTEGRATION SOLUTION ARCHITECT EGFR Routine 11/20/2024 5:33 AM INTEGRATION SOLUTION ARCHITECT DIFFERENTIAL AUTO Routine 11/20/2024 5:3 3 AM INTEGRATION SOLUTION ARCHITECT COMPREHENSIVE METABOLIC PANEL Routine 11/20/2024 5:33 AM INTEGRATION SOLUTION ARCHITECT CBC WITH AUTO DIFFERENTIAL Routine 11/20/2024 5:33 AM INTEGRATION SOLUTION ARCHITECT POCT GLUCOSE DEVICE Routine 11/19/2024 8 :57 PM INTEGRATION SOLUTION ARCHITECT POCT GLUCOSE DEVICE Routine 11/19/2024 5 :10 PM INTEGRATION SOLUTION ARCHITECT POCT GLUCOSE DEVICE Routine 11/19/2024 1 2:24 PM INTEGRATION SOLUTION ARCHITECT POCT GLUCOSE DEVICE Routine 11/19/2024 1 1:36 AM INTEGRATION SOLUTION ARCHITECT POCT GLUCOSE DEVICE Routine 11/19/2024 8 :22 AM INTEGRATION SOLUTION ARCHITECT EGFR Routine 11/19/2024 6:23 AM INTEGRATION SOLUTION ARCHITECT DIFFERENTIAL AUTO Routine 11/19/2024 6:2 3 AM INTEGRATION SOLUTION ARCHITECT AMMONIA Routine 11/19/2024 6:23 AM INTEGRATION SOLUTION ARCHITECT COMPREHENSIVE METABOLIC PANEL Routine 11/19/2024 6:23 AM INTEGRATION SOLUTION ARCHITECT CBC WITH AUTO DIFFERENTIAL Routine 11/19/2024 6:23 AM INTEGRATION SOLUTION ARCHITECT POCT GLUCOSE DEVICE Routine 11/18/2024 8 :[address] ABDOMEN PELVIS WO CONTRAST IP Routine 11/18/2024 8:34 PM INTEGRATION SOLUTION ARCHITECT POCT GLUCOSE DEVICE Routine 11/18/2024 5 :49 PM INTEGRATION SOLUTION ARCHITECT POCT GLUCOSE DEVICE Routine 11/18/2024 1 2:43 PM INTEGRATION SOLUTION ARCHITECT POCT GLUCOSE DEVICE Routine 11/18/2024 7 :55 AM INTEGRATION SOLUTION ARCHITECT DIFFERENTIAL AUTO Routine 11/18/2024 6:3 5 AM INTEGRATION SOLUTION ARCHITECT CBC WITH AUTO DIFFERENTIAL Routine 11/18/2024 6:35 AM INTEGRATION SOLUTION ARCHITECT EGFR Routine 11/18/2024 5:52 AM INTEGRATION SOLUTION ARCHITECT FOLATE Routine 11/18/2024 5:52 AM INTEGRATION SOLUTION ARCHITECT VITAMIN B12 Routine 11/18/2024 5:52 AM INTEGRATION SOLUTION ARCHITECT COMPREHENSIVE METABOLIC PANEL Routine 11/18/2024 5:52 AM INTEGRATION SOLUTION ARCHITECT POCT GLUCOSE DEVICE Routine 11/17/2024 8 :52 PM INTEGRATION SOLUTION ARCHITECT POCT GLUCOSE DEVICE Routine 11/17/2024 6 :05 PM INTEGRATION SOLUTION ARCHITECT POCT GLUCOSE DEVICE Routine 11/17/2024 1 :08 PM INTEGRATION SOLUTION ARCHITECT POCT GLUCOSE DEVICE Routine 11/17/2024 9 :20 AM INTEGRATION SOLUTION ARCHITECT EGFR Routine 11/17/2024 7:01 AM INTEGRATION SOLUTION ARCHITECT DIFFERENTIAL AUTO Routine 11/17/2024 7:0 1 AM INTEGRATION SOLUTION ARCHITECT COMPREHENSIVE METABOLIC PANEL Routine 11/17/2024 7:01 AM INTEGRATION SOLUTION ARCHITECT CBC WITH AUTO DIFFERENTIAL Routine 11/17/2024 7:01 AM INTEGRATION SOLUTION ARCHITECT POCT GLUCOSE DEVICE Routine 11/16/2024 7 :44 PM INTEGRATION SOLUTION ARCHITECT POCT GLUCOSE DEVICE Routine 11/16/2024 6 :33 PM INTEGRATION SOLUTION ARCHITECT POCT GLUCOSE DEVICE Routine 11/16/2024 1 1:54 AM INTEGRATION SOLUTION ARCHITECT HEMOGLOBIN A1C Routine 11/16/2024 9:56 AM INTEGRATION SOLUTION ARCHITECT EGFR Routine 11/16/2024 9:56 AM INTEGRATION SOLUTION ARCHITECT DIFFERENTIAL AUTO Routine 11/16/2024 9:5 6 AM INTEGRATION SOLUTION ARCHITECT COMPREHENSIVE METABOLIC PANEL Routine 11/16/2024 9:56 AM INTEGRATION SOLUTION ARCHITECT CBC WITH AUTO DIFFERENTIAL Routine 11/16/2024 9:56 AM INTEGRATION SOLUTION ARCHITECT POCT GLUCOSE DEVICE Routine 11/16/2024 8 :53 AM INTEGRATION SOLUTION ARCHITECT POCT GLUCOSE DEVICE Routine 11/16/2024 1 2:30 AM INTEGRATION SOLUTION ARCHITECT POCT GLUCOSE DEVICE Routine 11/15/2024 8 :35 PM INTEGRATION SOLUTION ARCHITECT POCT GLUCOSE DEVICE Routine 11/15/2024 5 :29 PM INTEGRATION SOLUTION ARCHITECT POCT GLUCOSE DEVICE Routine 11/15/2024 1 :28 PM INTEGRATION SOLUTION ARCHITECT POCT GLUCOSE DEVICE Routine 11/15/2024 8 :56 AM INTEGRATION SOLUTION ARCHITECT MAGNESIUM Routine 11/15/2024 4:35 AM INTEGRATION SOLUTION ARCHITECT EGFR Routine 11/15/2024 4:35 AM INTEGRATION SOLUTION ARCHITECT DIFFERENTIAL AUTO Routine 11/15/2024 4:3 5 AM INTEGRATION SOLUTION ARCHITECT PROTIME-INR Routine 11/15/2024 4:35 AM INTEGRATION SOLUTION ARCHITECT COMPREHENSIVE METABOLIC PANEL Routine 11/15/2024 4:35 AM INTEGRATION SOLUTION ARCHITECT CBC WITH AUTO DIFFERENTIAL Routine 11/15/2024 4:35 AM INTEGRATION SOLUTION ARCHITECT POCT GLUCOSE DEVICE Routine 11/14/2024 9 :28 PM INTEGRATION SOLUTION ARCHITECT POCT GLUCOSE DEVICE Routine 11/14/2024 5 :48 PM INTEGRATION SOLUTION ARCHITECT SODIUM, URINE, RANDOM Routine 11/14/2024 3:29 PM INTEGRATION SOLUTION ARCHITECT URINALYSIS AND REFLEX TO MICROSCOPIC AND CULTURE STAT 11/14/2024 3:28 PM INTEGRATION SOLUTION ARCHITECT AMMONIA Add-On 11/14/2024 2:16 PM INTEGRATION SOLUTION ARCHITECT POCT GLUCOSE DEVICE Routine 11/14/2024 1 1:21 AM INTEGRATION SOLUTION ARCHITECT POCT GLUCOSE DEVICE Routine 11/14/2024 8 :11 AM INTEGRATION SOLUTION ARCHITECT EGFR Routine 11/14/2024 5:03 AM INTEGRATION SOLUTION ARCHITECT DIFFERENTIAL AUTO Routine 11/14/2024 5:0 3 AM INTEGRATION SOLUTION ARCHITECT COMPREHENSIVE METABOLIC PANEL Routine 11/14/2024 5:03 AM INTEGRATION SOLUTION ARCHITECT CBC WITH AUTO DIFFERENTIAL Routine 11/14/2024 5:03 AM INTEGRATION SOLUTION ARCHITECT POCT GLUCOSE DEVICE Routine 11/14/2024 4 :41 AM INTEGRATION SOLUTION ARCHITECT POCT GLUCOSE DEVICE Routine 11/13/2024 7 :59 PM INTEGRATION SOLUTION ARCHITECT POCT GLUCOSE DEVICE Routine 11/13/2024 5 :16 [address] KNEE LEFT WO CONTRAST IP Routine 11/13/2024 4:52 PM INTEGRATION SOLUTION ARCHITECT US CHEST IP Routine 11/13/2024 2:21 PM INTEGRATION SOLUTION ARCHITECT POCT GLUCOSE DEVICE Routine 11/13/2024 2 :13 PM INTEGRATION SOLUTION ARCHITECT FLUORO GUIDED ASPIRATION KNEE LEFT IP Routine 11/13/2024 1:30 PM INTEGRATION SOLUTION ARCHITECT EGFR Routine 11/13/2024 9:02 AM INTEGRATION SOLUTION ARCHITECT DIFFERENTIAL AUTO Routine 11/13/2024 9:0 2 AM INTEGRATION SOLUTION ARCHITECT COMPREHENSIVE METABOLIC PANEL Routine 11/13/2024 9:02 AM INTEGRATION SOLUTION ARCHITECT CBC WITH AUTO DIFFERENTIAL Routine 11/13/2024 9:02 AM INTEGRATION SOLUTION ARCHITECT MAGNESIUM Routine 11/13/2024 9:02 AM INTEGRATION SOLUTION ARCHITECT POCT GLUCOSE DEVICE Routine 11/13/2024 8 :00 AM INTEGRATION SOLUTION ARCHITECT STREP PNEUMONIAE AG, URINE Routine 11/13/2024 12:28 AM INTEGRATION SOLUTION ARCHITECT LEGIONELLA ANTIGEN, URINE Routine 11/13/2024 12:28 AM INTEGRATION SOLUTION ARCHITECT POCT GLUCOSE DEVICE Routine 11/12/2024 1 0:04 PM INTEGRATION SOLUTION ARCHITECT TRANSTHORACIC ECHO (TTE) COMPLETE W DOPPLER/CF WO CONTRAST Routine 11/12/2024 4:14 PM INTEGRATION SOLUTION ARCHITECT XR KNEE LEFT 1 OR 2 VIEWS IP Routine 11/12/2024 2:18 PM INTEGRATION SOLUTION ARCHITECT POCT GLUCOSE DEVICE Routine 11/12/2024 1 2:11 PM INTEGRATION SOLUTION ARCHITECT POCT GLUCOSE DEVICE Routine 11/12/2024 1 0:02 AM INTEGRATION SOLUTION ARCHITECT EGFR Routine 11/12/2024 8:29 AM INTEGRATION SOLUTION ARCHITECT DIFFERENTIAL AUTO Routine 11/12/2024 8:2 9 AM INTEGRATION SOLUTION ARCHITECT CBC WITH AUTO DIFFERENTIAL Routine 11/12/2024 8:29 AM INTEGRATION SOLUTION ARCHITECT COMPREHENSIVE METABOLIC PANEL Routine 11/12/2024 8:29 AM INTEGRATION SOLUTION ARCHITECT POCT GLUCOSE DEVICE Routine 11/12/2024 3 :01 AM INTEGRATION SOLUTION ARCHITECT BLOOD CULTURE STAT 11/11/2024 9:45 PM INTEGRATION SOLUTION ARCHITECT BLOOD CULTURE STAT 11/11/2024 9:45 PM IN[address]ATION SOL[address] CHEST ABDOMEN PELVIS WO CONTRAST ED 11/11/2024 8:07 PM INTEGRATION SOLUTION ARCHITECT XR CHEST 1 VIEW ED 11/11/2024 5:30 PM INTEGRATION SOLUTION ARCHITECT EGFR STAT 11/11/2024 5:10 PM INTEGRATION SOLUTION ARCHITECT DIFFERENTIAL AUTO STAT 11/11/2024 5:1 0 PM INTEGRATION SOLUTION ARCHITECT PRO B-TYPE NATRIURETIC PEPTIDE STAT 11/11/2024 5:10 PM INTEGRATION SOLUTION ARCHITECT SEPSIS LACTATE WITH REFLEX Routine 11/11/2024 5:10 PM INTEGRATION SOLUTION ARCHITECT COMPREHENSIVE METABOLIC PANEL STAT 11/11/2024 5:10 PM INTEGRATION SOLUTION ARCHITECT CBC WITH AUTO DIFFERENTIAL STAT 11/11/2024 5:10 PM INTEGRATION SOLUTION ARCHITECT CARDIOLOGY DOCUMENT SCAN Routine 11/01/2024 10:08 AM INTEGRATION SOLUTION ARCHITECT CARDIOLOGY DOCUMENT SCAN Routine 10/31/2024 9:21 AM INTEGRATION SOLUTION ARCHITECT POCT LIPID PANEL Routine 11/15/2023 2:47 PM INTEGRATION SOLUTION ARCHITECT Lipid screening from Last 3 Months or [...] Stewart Greene M.D. RB: BECKI Report ID: [id number] Reading Location: [id number] Procedure Note Stewart Greene MD - 12/30/2024 [...] Stewart Greene M.D. RB: BECKI Report ID: [id number] Reading Location: [id number] us Samara MEDEIROS IMJaylyn XR PROCEDURES Final Result * US SONIA (11/26/2024 2:32 PM INTEGRATION SOLUTION ARCHITECT) Anatomical Region Laterality Modality Vascular N/A Ultrasound 11/26/2024 12:3 5 PM INTEGRATION SOLUTION ARCHITECT Narrative 11/27/2024 9:12 AM INTEGRATION SOLUTION ARCHITECT Vascular & Vein Surgery [address] [facility] [place] [address] Lower Extremity Arterial Doppler Report Patient Name: LOU ISLAS B : 1955 Study Date: 11/26/2024 12:35:00 PM Gender: F Saw Grinder: Maira Gonzalez Elijah Location: VVSE Ref Provider: LEXIE RUCKER Quality: Adequate Order Provider: LEXIE RUCKER PROCEDURES: Arterial Report: Ankle - Brachial Index Doppler exam. INDICATIONS: BLE wounds with varicose veins. HISTORY: Hypertension. Hyperlipidemia. Diabetic. CHF. Former smoker. COMPARISONS: No previous exams. MEASUREMENTS: Right Value Left Value Rt Brachial Pressure 104 mmHg Lt Brachial Pressure 111 mmHg Rt PIPELINE INTEGRITY ENGINEER Pressure >220 mmHg Lt PIPELINE INTEGRITY ENGINEER Pressure >220 mmHg Rt DPA Pressure 196 [...] By: Lexie Rucker MD 11/27/2024 8:47:23 AM INTEGRATION SOLUTION ARCHITECT Procedure Note Lexie Rucker MD - 11/27/2024 Vascular & Vein Surgery [address] [facility] [place] [place] [address] Lower Extremity Arterial Doppler Report Patient Name: LOU ISLAS B : 1955 Study Date: 11/26/2024 12:35:00 PM Gender: F Saw Grinder: Maira Gonzalez RVT Location: VVSE Ref Provider: LEXIE RUCKER Quality: Adequate Order Provider: LEXIE RUCKER PROCEDURES: Arterial Report: Ankle - Brachial Index Doppler exam. INDICATIONS: BLE wounds with varicose veins. HISTORY: Hypertension. Hyperlipidemia. Diabetic. CHF. Former smoker. COMPARISONS: No previous exams. MEASUREMENTS: Right Value Left Value Rt Brachial Pressure 104 mmHg Lt Brachial Pressure 111 mmHg Rt PIPELINE INTEGRITY ENGINEER Pressure >220 mmHg Lt PIPELINE INTEGRITY ENGINEER Pressure >220 mmHg Rt DPA Pressure 196 [...] By: Lexie Rucker MD 11/27/2024 8:47:23 AM INTEGRATION SOLUTION ARCHITECT us Lexie Rucker MD IMG US PROCEDURES Final Result * US Venous Reflux Bilateral (11/26/2024 2:32 PM INTEGRATION SOLUTION ARCHITECT) Anatomical Region Laterality Modality Vascular Bilateral Ultrasound 11/26/2024 12:5 9 PM INTEGRATION SOLUTION ARCHITECT Narrative 11/27/2024 9:12 AM INTEGRATION SOLUTION ARCHITECT Vascular & Vein Surgery [address] [place] [address] Lower Extremity Venous Reflux Duplex Report Patient Name: LOU ISLAS B : 1955 (69y 7m) Study Date: 11/26/2024 12:59:40 PM Gender: F Saw Grinder: Location: VVSE Ref Provider: LEXIE RUCKER Quality: [...] in sapheno-femoral junction and small saphenous vein. Plodding Machine Operator vein noted at distal posterior medial calf, [...] By: Lexie Rucker MD 11/27/2024 8:47:00 AM INTEGRATION SOLUTION ARCHITECT Procedure Note Lexie Rucker MD - 11/27/2024 Vascular & Vein Surgery [address] [facility] [place] [place] [address] Lower Extremity Venous Reflux Duplex Report Patient Name: LOU ISLAS B : 1955 (69y 7m) Study Date: 11/26/2024 12:59:40 PM Gender: F Saw Grinder: NIEVES Location: VVSE Ref Provider: LEXIE RUCKER [...] noted in sapheno-femoral junction and small saphenous vein.Plodding Machine Operator vein noted at distal posterior medial calf, [...] By: Lexie Rucker MD 11/27/2024 8:47:00 AM INTEGRATION SOLUTION ARCHITECT us Lexie Rucker MD IM US PROCEDURES Final Result * POCT glucose (11/20/2024 5:57 PM INTEGRATION SOLUTION ARCHITECT) Glucose, POC 175 70 - 199 mg/dL Comment:Testing performed by : [address] [id number] Blood 11/20/2024 5:57 PM INTEGRATION SOLUTION ARCHITECT 11/20/2024 5:57 PM INTEGRATION SOLUTION ARCHITECT Joe Herron MD LAB POCT ORDERABLES - DEVICE Final Result [facility] [address] [facility] Department [place] [address] * POCT glucose (11/20/2024 12:28 PM INTEGRATION SOLUTION ARCHITECT) Glucose, POC 186 70 - 199 mg/dL Comment:Testing performed by : [address] [address] Glucose comment 1 Use This Result DAYANA CARPIO Comment:Testing performed by : [address] [address] Glucose comment 2 RN/MD Notified DAYANA CARPIO Comment:Testing performed by : [address] [id number] Blood 11/20/2024 12:2 8 PM INTEGRATION SOLUTION ARCHITECT 11/20/2024 12:28 PM INTEGRATION SOLUTION ARCHITECT us Joe Herron MD LAB POCT ORDERABLES - DEVICE Final Result Performing Organization Address [facility] de Phone Number DAYANA [address] [place] [address] * POCT glucose (11/20/2024 8:57 AM INTEGRATION SOLUTION ARCHITECT) Pathologist [facility] Glucose, POC 157 70 - 199 mg/dL Comment:Testing performed by : [address] [address] Glucose comment 1 Use This Result DAYANA CARPIO Comment:Testing performed by : [address] [address] Glucose comment 2 RN/MD Notified DAYANA Comment:Testing performed by : [address] [id number] Blood 11/20/2024 8:57 AM INTEGRATION SOLUTION ARCHITECT 11/20/2024 8:57 AM INTEGRATION SOLUTION ARCHITECT us Joe Herron MD LAB POCT ORDERABLES - DEVICE Final Result Performing Organization Address [facility] Co de Phone Number DAYANA [address] [address] * (ABNORMAL) eGFR (11/20/2024 5:33 AM INTEGRATION SOLUTION ARCHITECT) [facility] eGFR 24(L) >=60 mL/min/1. 73 m2 [...] was last reviewed 2021. Testing performed by: [address] [address] Blood 11/20/2024 5:33 AM INTEGRATION SOLUTION ARCHITECT 11/20/2024 5:56 AM INTEGRATION SOLUTION ARCHITECT us Ivan Vargas MD LAB BLOOD ORDERABLES Final Re sult DAYANA [address] Department [place] [address] * (ABNORMAL) Differential, auto (11/20/2024 5:33 AM INTEGRATION SOLUTION ARCHITECT) Neutrophil abs 3.7 1.5 - 6.5 K/cumm Comment:Testing performed by : [address] [address] Imm gran abs 0.1 0.0 - 0.1 K/cumm DAYANA Comment:Testing performed by : [address] [address] Lymphocyte abs 1.1 0.8 - 3.3 K/cumm DAYANA Comment:Testing performed by : [address] [address] Monocyte abs 1.0(H) 0.2 - 0.8 K/cumm DAYANA Comment:Testing performed by : [address] [address] Eosinophil abs 0.8(H) 0.0 - 0.5 K/cumm DAYANA Comment:Testing performed by : [address] [address] Basophil abs 0.1 0.0 - 0.1 K/cumm DAYANA Comment:Testing performed by : [address] [address] Neutrophil pct 55.1 % DAYANA Comment: Interpretive Data Percent cell count reference ranges are not reported, since discordance with absolute values may lead to misinterpretation of CBC data. Current Interpretive Data was last revised on 2018. Testing performed by: [address] [address] Imm gran pct 1.2 % [facility] Comment: Interpretive Data Percent cell count reference ranges are not reported, since discordance with absolute values may lead to misinterpretation of CBC data. Current Interpretive Data was last revised on 2018. Testing performed by: [address] [address] Lymphocyte pct 16.2 % [facility] Comment: Interpretive Data Percent cell count reference ranges are not reported, since discordance with absolute values may lead to misinterpretation of CBC data. Current Interpretive Data was last revised on 2018. Testing performed by: [address] [address] Monocyte pct 14.3 % [facility] Comment: Interpretive Data Percent cell count reference ranges are not reported, since discordance with absolute values may lead to misinterpretation of CBC data. Current Interpretive Data was last revised on 2018. Testing performed by: [address] [address] Eosinophil pct 12.3 % [facility] Comment: Interpretive Data Percent cell count reference ranges are not reported, since discordance with absolute values may lead to misinterpretation of CBC data. Current Interpretive Data was last revised on 2018. Testing performed by: [address] [address] Basophil pct 0.9 % [facility] Comment: Interpretive Data Percent cell count reference ranges are not reported, since discordance with absolute values may lead to misinterpretation of CBC data. Current Interpretive Data was last revised on 2018. Testing performed by: [address] [address] Blood 11/20/2024 5:33 AM INTEGRATION SOLUTION ARCHITECT 11/20/2024 5:56 AM INTEGRATION SOLUTION ARCHITECT us Ivan Vargas MD LAB BLOOD ORDERABLES Final Re sult DAYANA [address] Department [place] [address] * (ABNORMAL) CBC with auto differential (11/20/2024 5:33 AM INTEGRATION SOLUTION ARCHITECT) WBC 6.7 3.8 - 9.9 K/cumm Comment:Testing performed by : [address] [address] Hgb 9.2(L) 11.9 - 15.5 g/dL DAYANA Comment:Testing performed by : [address] [address] Hct 29.0(L) 35.6 - 45.5 % DAYANA Comment:Testing performed by : [address] [address] Plt 275 150 - 400 K/cumm DAYANA Comment:Testing performed by : [address] [address] MPV 11.0 9.1 - 12.3 fL DAYANA Comment:Testing performed by : [address] [address] RBC 2.80(L) 3.90 - 5.20 M/cumm DAYANA Comment:Testing performed by : [address] [address] MCV 103.6(H) 81.3 - 96.4 fL DAYANA Comment:Testing performed by : [address] [address] MCH 32.9 27.1 - 33.3 pg DAYANA Comment:Testing performed by : [address] [address] MCHC 31.7(L) 32.3 - 35.7 g/dL DAYANA Comment:Testing performed by : [address] [address] RDW CV 16.5(H) 11.1 - 14.9 % DAYANA Comment:Testing performed by : [address] [address] RDW SD 62.3(H) 35.7 - 48.1 fL CERNER MH Comment:Testing performed by : [address] [address] NRBC abs 0.00 0.00 - 0.01 K/cumm DAYANA CARPIO Comment:Testing performed by : [address] [address] Blood 11/20/2024 5:33 AM INTEGRATION SOLUTION ARCHITECT 11/20/2024 5:56 AM INTEGRATION SOLUTION ARCHITECT us Ivan Vargas MD LAB BLOOD ORDERABLES Final Re sult DAYANA [address] Department [place] [address] * (ABNORMAL) Comprehensive metabolic panel (11/20/2024 5:33 AM INTEGRATION SOLUTION ARCHITECT) Sodium 134(L) 135 - 145 mmol/L Comment:Testing performed by : [address] [address] Potassium, pl 3.8 3.3 - 4.9 mmol/L DAYANA Comment:Testing performed by : [address] [address] Chloride 91(L) 97 - 110 mmol/L DAYANA Comment:Testing performed by : [address] [address] CO2 26 22 - 32 mmol/L DAYANA Comment:Testing performed by : [address] [address] Anion gap 17(H) 2 - 15 mmol/L DAYANA Comment:Testing performed by : [address] [address] BUN 51(H) 6 - 25 mg/dL DAYANA Comment:Testing performed by : [address] [address] Creatinine 2.20(H) 0.60 - 1.10 mg/dL DAYANA CARPIO Comment:Testing performed by : [address] [address] Glucose 149 70 - 199 mg/dL DAYANA [...] was last revised 2022. Testing performed by: [address] [address] Calcium 10.3 8.5 - 10.3 mg/dL DAYANA Comment:Testing performed by : [address] [address] Bilirubin, total 1.3(H) 0.1 - 1.2 mg/dL DAYANA Comment:Testing performed by : [address] [address] Protein, pl 6.6 6.5 - 8.5 g/dL DAYANA Comment:Testing performed by : [address] [address] Albumin 3.8 3.5 - 5.0 g/dL DAYANA Comment:Testing performed by : [address] [address] Alk phos 391(H) 40 - 130 Units/L DAYANA Comment:Testing performed by : [address] [address] ALT 15 7 - 45 Units/L DAYANA Comment:Testing performed by : [address] [address] AST 29 10 - 45 Units/L DAYANA Comment:Testing performed by : [address] [address] Blood 11/20/2024 5:33 AM INTEGRATION SOLUTION ARCHITECT 11/20/2024 5:56 AM INTEGRATION SOLUTION ARCHITECT Ivan Vargas MD LAB BLOOD ORDERABLES Final Re sult Performing Organization Address City/State/[facility] Co de Phone Number DAYANA [address] [place] [address] * (ABNORMAL) POCT glucose (11/19/2024 8:57 PM INTEGRATION SOLUTION ARCHITECT) Glucose, POC 254(H) 70 - 199 mg/dL Comment:Testing performed by : [address] [address] Glucose comment 1 Use This Result DAYANA Comment:Testing performed by : [address] [address] Blood 11/19/2024 8:57 PM INTEGRATION SOLUTION ARCHITECT 11/19/2024 8:57 PM INTEGRATION SOLUTION ARCHITECT us Joe Herron MD LAB POCT ORDERABLES - DEVICE Final Result Performing Organization Address [facility] Co de Phone Number DAYANA [address] [address] * (ABNORMAL) POCT glucose (11/19/2024 5:10 PM INTEGRATION SOLUTION ARCHITECT) Glucose, POC 225(H) 70 - 199 mg/dL Comment:Testing performed by : [address] [address] Blood 11/19/2024 5:10 PM INTEGRATION SOLUTION ARCHITECT 11/19/2024 5:10 PM INTEGRATION SOLUTION ARCHITECT us Joe Herron MD LAB POCT ORDERABLES - DEVICE Final Result Performing Organization Address [facility] Co de Phone Number [address] [address] * POCT glucose (11/19/2024 12:24 PM INTEGRATION SOLUTION ARCHITECT) Glucose, POC 191 70 - 199 mg/dL Comment:Testing performed by : [address] [address] Blood 11/19/2024 12:2 4 PM INTEGRATION SOLUTION ARCHITECT 11/19/2024 12:24 PM INTEGRATION SOLUTION ARCHITECT Joe Herron MD LAB POCT ORDERABLES - DEVICE Final Result Performing Organization Address [facility] Co de Phone Number DAYANA [address] [address] * POCT glucose (11/19/2024 11:36 AM INTEGRATION SOLUTION ARCHITECT) Glucose, POC 181 70 - 199 mg/dL Comment:Testing performed by : [address] [address] Blood 11/19/2024 11:3 6 AM INTEGRATION SOLUTION ARCHITECT 11/19/2024 11:36 AM INTEGRATION SOLUTION ARCHITECT Joe Herron MD LAB POCT ORDERABLES - DEVICE Final Result Performing Organization Address [facility] de Phone Number MARY ALICE[address] [address] * POCT glucose (11/19/2024 8:22 AM INTEGRATION SOLUTION ARCHITECT) Glucose, POC 163 70 - 199 mg/dL Comment:Testing performed by : [address] [address] Glucose comment 1 Use This Result DAYANA Comment:Testing performed by : [address] [address] Blood 11/19/2024 8:22 AM INTEGRATION SOLUTION ARCHITECT 11/19/2024 8:22 AM INTEGRATION SOLUTION ARCHITECT Joe Herron MD LAB POCT ORDERABLES - DEVICE Final Result Performing Organization Address [facility] Co de Phone Number MARY ALICE[address] [address] * (ABNORMAL) eGFR (11/19/2024 6:23 AM INTEGRATION SOLUTION ARCHITECT) eGFR 28(L) >=60 mL/min/1. 73 m2 Comment: [...] was last reviewed 2021. Testing performed by: [address] [address] Blood 11/19/2024 6:23 AM INTEGRATION SOLUTION ARCHITECT 11/19/2024 6:31 AM INTEGRATION SOLUTION ARCHITECT us Ivan Vargas MD LAB BLOOD ORDERABLES Final Re sult DAYANA [address] [facility] Department [place] [address] * (ABNORMAL) Differential, auto (11/19/2024 6:23 AM INTEGRATION SOLUTION ARCHITECT) Neutrophil abs 3.7 1.5 - 6.5 K/cumm Comment:Testing performed by : [address] [address] Imm gran abs 0.1 0.0 - 0.1 K/cumm DAYANA Comment:Testing performed by : [address] [address] Lymphocyte abs 1.1 0.8 - 3.3 K/cumm DAYANA Comment:Testing performed by : [address] [address] Monocyte abs 1.0(H) 0.2 - 0.8 K/cumm DAYANA Comment:Testing performed by : [address] [address] Eosinophil abs 1.1(H) 0.0 - 0.5 K/cumm [facility] Comment:Testing performed by : [address] [address] Basophil abs 0.1 0.0 - 0.1 K/cumm DAYANA Comment:Testing performed by : [address] [address] Neutrophil pct 52.7 % [facility] Comment: Interpretive Data Percent cell count reference ranges are not reported, since discordance with absolute values may lead to misinterpretation of CBC data. Current Interpretive Data was last revised on 2018. Testing performed by: [address] [address] Imm gran pct 1.1 % [facility] Comment: Interpretive Data Percent cell count reference ranges are not reported, since discordance with absolute values may lead to misinterpretation of CBC data. Current Interpretive Data was last revised on 2018. Testing performed by: [address] [address] Lymphocyte pct 15.8 % [facility] Comment: Interpretive Data Percent cell count reference ranges are not reported, since discordance with absolute values may lead to misinterpretation of CBC data. Current Interpretive Data was last revised on 2018. Testing performed by: [address] [address] Monocyte pct 14.2 % [facility] Comment: Interpretive Data Percent cell count reference ranges are not reported, since discordance with absolute values may lead to misinterpretation of CBC data. Current Interpretive Data was last revised on 2018. Testing performed by: [address] [address] Eosinophil pct 15.2 % [facility] Comment: Interpretive Data Percent cell count reference ranges are not reported, since discordance with absolute values may lead to misinterpretation of CBC data. Current Interpretive Data was last revised on 2018. Testing performed by: [address] [address] Basophil pct 1.0 % [facility] Comment: Interpretive Data Percent cell count reference ranges are not reported, since discordance with absolute values may lead to misinterpretation of CBC data. Current Interpretive Data was last revised on 2018. Testing performed by: [address] [address] Blood 11/19/2024 6:23 AM INTEGRATION SOLUTION ARCHITECT 11/19/2024 6:31 AM INTEGRATION SOLUTION ARCHITECT us Ivan Vargas MD LAB BLOOD ORDERABLES Final Re sult DAYANA [address] [facility] Department [place] [address] * (ABNORMAL) CBC with auto differential (11/19/2024 6:23 AM INTEGRATION SOLUTION ARCHITECT) WBC 7.0 3.8 - 9.9 K/cumm Comment:Testing performed by : [address] [address] Hgb 8.9(L) 11.9 - 15.5 g/dL DAYANA Comment:Testing performed by : [address] [address] Hct 28.1(L) 35.6 - 45.5 % DAYANA Comment:Testing performed by : [address] [address] Plt 268 150 - 400 K/cumm DAYANA Comment:Testing performed by : [address] [address] MPV 11.2 9.1 - 12.3 fL DAYANA Comment:Testing performed by : [address] [address] RBC 2.75(L) 3.90 - 5.20 M/cumm DAYANA Comment:Testing performed by : [address] [address] MCV 102.2(H) 81.3 - 96.4 fL DAYANA Comment:Testing performed by : [address] [address] MCH 32.4 27.1 - 33.3 pg DAYANA CARPIO Comment:Testing performed by : [facility], [address] [place] [address]., [address] MCHC 31.7(L) 32.3 - 35.7 g/dL DAYANA CARPIO Comment:Testing performed by : [address] [address] RDW CV 16.5(H) 11.1 - 14.9 % DAYANA CARPIO Comment:Testing performed by : [address] [address] RDW SD 60.4(H) 35.7 - 48.1 fL DAYANA CARPIO Comment:Testing performed by : [address] [address] NRBC abs 0.00 0.00 - 0.01 K/cumm DAYANA CARPIO Comment:Testing performed by : [address] [address] Blood 11/19/2024 6:23 AM INTEGRATION SOLUTION ARCHITECT 11/19/2024 6:31 AM INTEGRATION SOLUTION ARCHITECT us Ivan Vargas MD LAB BLOOD ORDERABLES Final Re sult Performing Organization Address City/[facility]/ZIP Co de Phone Number DAYANA [address] [place] [address] * Ammonia (11/19/2024 6:23 AM INTEGRATION SOLUTION ARCHITECT) Ammonia 24 <=50 mcmol/L Comment: Please note on 02/21/2024 the unit of measure changed from mcg/dL to mcmol/L. Current Interpretive Data was last revised on 2024. Testing performed by: [address] [address] Blood 11/19/2024 6:23 AM INTEGRATION SOLUTION ARCHITECT 11/19/2024 6:27 AM INTEGRATION SOLUTION ARCHITECT Ivan Vargas MD LAB BLOOD ORDERABLES Final Re sult Performing Organization Address City/[facility]/ZIP Co de Phone Number DAYANA [address] [place] [address] * (ABNORMAL) Comprehensive metabolic panel (11/19/2024 6:23 AM INTEGRATION SOLUTION ARCHITECT) Sodium 133(L) 135 - 145 mmol/L Comment:Testing performed by : [address] [address] Potassium, pl 3.6 3.3 - 4.9 mmol/L DAYANA Comment:Testing performed by : [address] [address] Chloride 92(L) 97 - 110 mmol/L [facility] Comment:Testing performed by : [address], [place]., [address] CO2 27 22 - 32 mmol/L DAYANA Comment:Testing performed by : [address] [address] Anion gap 14 2 - 15 mmol/L [facility] Comment:Testing performed by : [address] [address] BUN 46(H) 6 - 25 mg/dL [facility] Comment:Testing performed by : [address] [address] Creatinine 1.90(H) 0.60 - 1.10 mg/dL [facility] Comment:Testing performed by : [address] [address] Glucose 151 70 - 199 mg/dL [facility] Comment: Interpretive Data Fasting glucose >/= 126 [...] was last revised 2022. Testing performed by: [address] [address] Calcium 10.2 8.5 - 10.3 mg/dL DAYANA Comment:Testing performed by : [address] [address] Bilirubin, total 1.4(H) 0.1 - 1.2 mg/dL DAYANA CARPIO Comment:Testing performed by : [address] [address] Protein, pl 6.3(L) 6.5 - 8.5 g/dL DAYANA CARPIO Comment:Testing performed by : [address], [place]., [address] Albumin 3.6 3.5 - 5.0 g/dL DAYANA Comment:Testing performed by : [address], [place]., [address] Alk phos 390(H) 40 - 130 Units/L DAYANA Comment:Testing performed by : [address] [address] ALT 17 7 - 45 Units/L DAYANA Comment:Testing performed by : [address] [address] AST 31 10 - 45 Units/L DAYANA Comment:Testing performed by : [address] [address] Blood 11/19/2024 6:23 AM INTEGRATION SOLUTION ARCHITECT 11/19/2024 6:31 AM INTEGRATION SOLUTION ARCHITECT us Ivan Vargas MD LAB BLOOD ORDERABLES Final Re sult ADYANA [address] [facility] Department [place] [address] * (ABNORMAL) POCT glucose (11/18/2024 8:46 PM INTEGRATION SOLUTION ARCHITECT) [facility] Glucose, POC 234(H) 70 - 199 mg/dL Comment:Testing performed by : [address] [address] Glucose comment 1 Use This Result DAYANA CARPIO Comment:Testing performed by : [address] [address] Glucose comment 2 RN/MD Notified DAYANA CARPIO Comment:Testing performed by : [address] [address] Blood 11/18/2024 8:46 PM INTEGRATION SOLUTION ARCHITECT 11/18/2024 8:46 PM INTEGRATION SOLUTION ARCHITECT us Ivan Vargas MD LAB POCT ORDERABLES - DEVICE Final Result DAYANA [address] [facility] Department [place] [address] * CT Abdomen Pelvis WO Contrast (11/18/2024 8:34 PM INTEGRATION SOLUTION ARCHITECT) Anatomical Region Laterality Modality Body N/A Computed Tomogra phy 11/18/2024 9:07 PM INTEGRATION SOLUTION ARCHITECT Narrative 11/18/2024 9:19 PM INTEGRATION SOLUTION ARCHITECT EXAM DESCRIPTION: CT ABDOMEN PELVIS WO CONTRAST [...] Pedro Alexis M.D. KT: KT Report ID: [id number] Reading Location: [place] [address] Procedure Note Pedro Alexis MD - 11/18/2024 [...] Pedro Alexis M.D. KT: KIM Report ID: [id number] Reading Location: [place] [address] us Ivan Vargas MD IMG CT PROCEDURES Final Resul t * (ABNORMAL) POCT glucose (11/18/2024 5:49 PM INTEGRATION SOLUTION ARCHITECT) [facility] Signature Glucose, POC 216(H) 70 - 199 mg/dL Comment:Testing performed by : [address] [address] Glucose comment 1 RN/MD Notified DAYANA CARPIO Comment:Testing performed by : [address] [address] Glucose comment 2 Use This Result DAYANA CARPIO Comment:Testing performed by : [address] [address] Blood 11/18/2024 5:49 PM INTEGRATION SOLUTION ARCHITECT 11/18/2024 5:49 PM INTEGRATION SOLUTION ARCHITECT Ivan Vargas MD LAB POCT ORDERABLES - DEVICE Final Result CERNER [address] [place] [address] * (ABNORMAL) POCT glucose (11/18/2024 12:43 PM INTEGRATION SOLUTION ARCHITECT) [facility] Glucose, POC 232(H) 70 - 199 mg/dL Comment:Testing performed by : [address] [address] Glucose comment 1 Use This Result DAYANA Comment:Testing performed by : [address] [address] Blood 11/18/2024 12:4 3 PM INTEGRATION SOLUTION ARCHITECT 11/18/2024 12:43 PM INTEGRATION SOLUTION ARCHITECT Ivan Vargas MD LAB POCT ORDERABLES - DEVICE Final Result Performing Organization Address [facility] Co de Phone Number [address] [address] * POCT glucose (11/18/2024 7:55 AM INTEGRATION SOLUTION ARCHITECT) [facility] Glucose, POC 145 70 - 199 mg/dL Comment:Testing performed by : [address] [address] Glucose comment 1 Use This Result DAYANA Comment:Testing performed by : [address] [address] Glucose comment 2 RN/MD Notified DAYANA Comment:Testing performed by : [address] [address] Blood 11/18/2024 7:55 AM INTEGRATION SOLUTION ARCHITECT 11/18/2024 7:55 AM INTEGRATION SOLUTION ARCHITECT Ivan Vargas MD LAB POCT ORDERABLES - DEVICE Final Result [address] [address] * (ABNORMAL) Differential, auto (11/18/2024 6:35 AM INTEGRATION SOLUTION ARCHITECT) [facility] Neutrophil abs 3.7 1.5 - 6.5 K/cumm Comment:Testing performed by : [address], [place]., [address] Imm gran abs 0.1 0.0 - 0.1 K/cumm [facility] Comment:Testing performed by : [address], [place]., [address] Lymphocyte abs 1.0 0.8 - 3.3 K/cumm [facility] Comment:Testing performed by : [address] [address] Monocyte abs 1.2(H) 0.2 - 0.8 K/cumm [facility] Comment:Testing performed by : [address] [address] Eosinophil abs 1.0(H) 0.0 - 0.5 K/cumm [facility] Comment:Testing performed by : [address] [address] Basophil abs 0.1 0.0 - 0.1 K/cumm [facility] Comment:Testing performed by : [address] [address] Neutrophil pct 52.9 % [facility] Comment: Interpretive Data Percent cell count reference ranges are not reported, since discordance with absolute values may lead to misinterpretation of CBC data. Current Interpretive Data was last revised on 2018. Testing performed by: [address] [address] Imm gran pct 1.1 % [facility] Comment: Interpretive Data Percent cell count reference ranges are not reported, since discordance with absolute values may lead to misinterpretation of CBC data. Current Interpretive Data was last revised on 2018. Testing performed by: [address] [address] Lymphocyte pct 14.4 % [facility] Comment: Interpretive Data Percent cell count reference ranges are not reported, since discordance with absolute values may lead to misinterpretation of CBC data. Current Interpretive Data was last revised on 2018. Testing performed by: [address] [address] Monocyte pct 17.1 % [facility] Comment: Interpretive Data Percent cell count reference ranges are not reported, since discordance with absolute values may lead to misinterpretation of CBC data. Current Interpretive Data was last revised on 2018. Testing performed by: [address] [address] Eosinophil pct 13.5 % DAYANA CARPIO Comment: Interpretive Data Percent cell count reference ranges are not reported, since discordance with absolute values may lead to misinterpretation of CBC data. Current Interpretive Data was last revised on 2018. Testing performed by: [address] [address] Basophil pct 1.0 % DAYANA CARPIO Comment: Interpretive Data Percent cell count reference ranges are not reported, since discordance with absolute values may lead to misinterpretation of CBC data. Current Interpretive Data was last revised on 2018. Testing performed by: [address] [address] Blood 11/18/2024 6:35 AM INTEGRATION SOLUTION ARCHITECT 11/18/2024 6:57 AM INTEGRATION SOLUTION ARCHITECT us Ivan Vargas MD LAB BLOOD ORDERABLES Final Re sult DAYANA [address] [facility] Department [place] [address] * (ABNORMAL) CBC with auto differential (11/18/2024 6:35 AM INTEGRATION SOLUTION ARCHITECT) Pathologist [facility] WBC 7.1 3.8 - 9.9 K/cumm Comment:Testing performed by : [address] [address] Hgb 9.0(L) 11.9 - 15.5 g/dL DAYANA CARPIO Comment:Testing performed by : [address] [address] Hct 28.2(L) 35.6 - 45.5 % DAYANA CARPIO Comment:Testing performed by : [address] [address] Plt 247 150 - 400 K/cumm DAYANA CARPIO Comment:Testing performed by : [address] [place] [address] MPV 11.1 9.1 - 12.3 fL DAYANA Comment:Testing performed by : [address] [address] RBC 2.73(L) 3.90 - 5.20 M/cumm DAYANA CARPIO Comment:Testing performed by : [address], [address] MCV 103.3(H) 81.3 - 96.4 fL DAYANA Comment:Testing performed by : [address] [address] MCH 33.0 27.1 - 33.3 pg DAYANA Comment:Testing performed by : [address], [address] MCHC 31.9(L) 32.3 - 35.7 g/dL DAYANA Comment:Testing performed by : [address], [address] RDW CV 16.6(H) 11.1 - 14.9 % DAYANA Comment:Testing performed by : [address], [address] RDW SD 62.6(H) 35.7 - 48.1 fL DAYANA Comment:Testing performed by : [address], [address] NRBC abs 0.00 0.00 - 0.01 K/cumm DAYANA Comment:Testing performed by : [address], [address] Blood 11/18/2024 6:35 AM INTEGRATION SOLUTION ARCHITECT 11/18/2024 6:57 AM INTEGRATION SOLUTION ARCHITECT us Ivan Vargas MD LAB BLOOD ORDERABLES Final Re sult DAYANA [address] [facility] Department [place] [address] * (ABNORMAL) eGFR (11/18/2024 5:52 AM INTEGRATION SOLUTION ARCHITECT) eGFR 28(L) >=60 mL/min/1. 73 m2 Comment: [...] was last reviewed 2021. Testing performed by: [address] [address] Blood 11/18/2024 5:52 AM INTEGRATION SOLUTION ARCHITECT 11/18/2024 6:24 AM INTEGRATION SOLUTION ARCHITECT Ivan Vargas MD LAB BLOOD ORDERABLES Final Re sult Performing Organization Address [facility] Co de Phone Number [address] [place] [address] * Folate (11/18/2024 5:52 AM INTEGRATION SOLUTION ARCHITECT) Folic acid >20.0 >=5.0 ng/mL Comment:Testing performed by : [address] [address] Blood 11/18/2024 5:52 AM INTEGRATION SOLUTION ARCHITECT 11/18/2024 6:24 AM INTEGRATION SOLUTION ARCHITECT Ivan Vargas MD LAB BLOOD ORDERABLES Final Re sult Performing Organization Address City/[facility]/ZIP Co de Phone Number [address] [address] * Vitamin B12 (11/18/2024 5:52 AM INTEGRATION SOLUTION ARCHITECT) Pathologist [facility] Vitamin B12 910 230 - 1,250 pg/mL Comment:Testing performed by : [address] [address] Blood 11/18/2024 5:52 AM INTEGRATION SOLUTION ARCHITECT 11/18/2024 6:24 AM INTEGRATION SOLUTION ARCHITECT Ivan Vargas MD LAB BLOOD ORDERABLES Final Re sult [facility] [address] [facility] [facility] Department [place] [address] * (ABNORMAL) Comprehensive metabolic panel (11/18/2024 5:52 AM INTEGRATION SOLUTION ARCHITECT) Pathologist [facility] Sodium 132(L) 135 - 145 mmol/L Comment:Testing performed by : [address] [address] Potassium, pl 3.9 3.3 - 4.9 mmol/L DAYANA Comment:Testing performed by : [address] [address] Chloride 92(L) 97 - 110 mmol/L DAYANA Comment:Testing performed by : [address] [address] CO2 27 22 - 32 mmol/L DAYANA Comment:Testing performed by : [address] [address] Anion gap 13 2 - 15 mmol/L DAYANA Comment:Testing performed by : [address] [address] BUN 43(H) 6 - 25 mg/dL DAYANA Comment:Testing performed by : [address] [address] Creatinine 1.90(H) 0.60 - 1.10 mg/dL DAYANA Comment:Testing performed by : [address] [address] Glucose 140 70 - 199 mg/dL DAYANA [...] was last revised 2022. Testing performed by: [address] [address] Calcium 10.0 8.5 - 10.3 mg/dL DAYANA Comment:Testing performed by : [address] [address] Bilirubin, total 1.5(H) 0.1 - 1.2 mg/dL DAYANA Comment:Testing performed by : [address] [address] Protein, pl 6.3(L) 6.5 - 8.5 g/dL DAYANA Comment:Testing performed by : [address] [address] Albumin 3.8 3.5 - 5.0 g/dL DAYANA Comment:Testing performed by : [address] [address] Alk phos 369(H) 40 - 130 Units/L DAYANA Comment:Testing performed by : [address] [address] ALT 17 7 - 45 Units/L DAYANA Comment:Testing performed by : [address] [address] AST 36 10 - 45 Units/L DAYANA Comment:Testing performed by : [address] [address] Blood 11/18/2024 5:52 AM INTEGRATION SOLUTION ARCHITECT 11/18/2024 6:24 AM INTEGRATION SOLUTION ARCHITECT us Ivan Vargas MD LAB BLOOD ORDERABLES Final Re sult DAYANA [address] Department [place] [address] * (ABNORMAL) POCT glucose (11/17/2024 8:52 PM INTEGRATION SOLUTION ARCHITECT) Glucose, POC 275(H) 70 - 199 mg/dL Comment:Testing performed by : [address] [address] Blood 11/17/2024 8:52 PM INTEGRATION SOLUTION ARCHITECT 11/17/2024 8:52 PM INTEGRATION SOLUTION ARCHITECT Ivan Vargas MD LAB POCT ORDERABLES - DEVICE Final Result Performing Organization Address [facility]/ZIP Co de Phone Number [address] [address] * (ABNORMAL) POCT glucose (11/17/2024 6:05 PM INTEGRATION SOLUTION ARCHITECT) Glucose, POC 280(H) 70 - 199 mg/dL Comment:Testing performed by : [address] [address] Glucose comment 1 Use This Result DAYANA Comment:Testing performed by : [address] [address] Glucose comment 2 RN/MD Notified DAYANA Comment:Testing performed by : [address] [address] Blood 11/17/2024 6:05 PM INTEGRATION SOLUTION ARCHITECT 11/17/2024 6:05 PM INTEGRATION SOLUTION ARCHITECT Ivan Vargas MD LAB POCT ORDERABLES - DEVICE Final Result Performing Organization Address [facility]/ZIP Co de Phone Number [address] [address] * (ABNORMAL) POCT glucose (11/17/2024 1:08 PM INTEGRATION SOLUTION ARCHITECT) Glucose, POC 236(H) 70 - 199 mg/dL Comment:Testing performed by : [address] [address] Glucose comment 1 Use This Result DAYANA Comment:Testing performed by : [facility], [address] [place] [address]., [address] Glucose comment 2 RN/MD Notified DAYANA Comment:Testing performed by : [address] [address] Blood 11/17/2024 1:08 PM INTEGRATION SOLUTION ARCHITECT 11/17/2024 1:08 PM INTEGRATION SOLUTION ARCHITECT Ivan Vargas MD LAB POCT ORDERABLES - DEVICE Final Result Performing Organization Address [facility] de Phone Number [address] [place] [address] * POCT glucose (11/17/2024 9:20 AM INTEGRATION SOLUTION ARCHITECT) [facility] Glucose, POC 146 70 - 199 mg/dL Comment:Testing performed by : [address] [address] Glucose comment 1 Use This Result DAYANA Comment:Testing performed by : [facility], [address] [place] [address]., [address] Glucose comment 2 RN/MD Notified DAYANA Comment:Testing performed by : [address] [address] Blood 11/17/2024 9:20 AM INTEGRATION SOLUTION ARCHITECT 11/17/2024 9:20 AM INTEGRATION SOLUTION ARCHITECT Ivan Vargas MD LAB POCT ORDERABLES - DEVICE Final Result Performing Organization Address [facility] Co de Phone Number [address] [place] [address] * (ABNORMAL) eGFR (11/17/2024 7:01 AM INTEGRATION SOLUTION ARCHITECT) [facility] eGFR 28(L) >=60 mL/min/1. 73 m2 [...] was last reviewed 2021. Testing performed by: [address] [address] Blood 11/17/2024 7:01 AM INTEGRATION SOLUTION ARCHITECT 11/17/2024 7:33 AM INTEGRATION SOLUTION ARCHITECT us Ivan Vargas MD LAB BLOOD ORDERABLES Final Re sult DAYANA [address] [facility] Department [place] [address] * (ABNORMAL) Differential, auto (11/17/2024 7:01 AM INTEGRATION SOLUTION ARCHITECT) Neutrophil abs 3.8 1.5 - 6.5 K/cumm Comment:Testing performed by : [address] [address] Imm gran abs 0.1 0.0 - 0.1 K/cumm DAYANA Comment:Testing performed by : [address] [address] Lymphocyte abs 0.8 0.8 - 3.3 K/cumm DAYANA Comment:Testing performed by : [address] [address] Monocyte abs 1.0(H) 0.2 - 0.8 K/cumm DAYANA Comment:Testing performed by : [address] [address] Eosinophil abs 0.7(H) 0.0 - 0.5 K/cumm DAYANA Comment:Testing performed by : [address] [address] Basophil abs 0.1 0.0 - 0.1 K/cumm DAYANA Comment:Testing performed by : [address] [address] Neutrophil pct 58.2 % [facility] Comment: Interpretive Data Percent cell count reference ranges are not reported, since discordance with absolute values may lead to misinterpretation of CBC data. Current Interpretive Data was last revised on 2018. Testing performed by: [address] [address] Imm gran pct 0.9 % [facility] Comment: Interpretive Data Percent cell count reference ranges are not reported, since discordance with absolute values may lead to misinterpretation of CBC data. Current Interpretive Data was last revised on 2018. Testing performed by: [address] [address] Lymphocyte pct 12.4 % [facility] Comment: Interpretive Data Percent cell count reference ranges are not reported, since discordance with absolute values may lead to misinterpretation of CBC data. Current Interpretive Data was last revised on 2018. Testing performed by: [address] [address] Monocyte pct 15.8 % [facility] Comment: Interpretive Data Percent cell count reference ranges are not reported, since discordance with absolute values may lead to misinterpretation of CBC data. Current Interpretive Data was last revised on 2018. Testing performed by: [address] [address] Eosinophil pct 11.5 % [facility] Comment: Interpretive Data Percent cell count reference ranges are not reported, since discordance with absolute values may lead to misinterpretation of CBC data. Current Interpretive Data was last revised on 2018. Testing performed by: [address] [address] Basophil pct 1.2 % [facility] Comment: Interpretive Data Percent cell count reference ranges are not reported, since discordance with absolute values may lead to misinterpretation of CBC data. Current Interpretive Data was last revised on 2018. Testing performed by: [address] [place]., [address] Blood 11/17/2024 7:01 AM INTEGRATION SOLUTION ARCHITECT 11/17/2024 7:34 AM INTEGRATION SOLUTION ARCHITECT us Ivan Vargas MD LAB BLOOD ORDERABLES Final Re sult [facility] [address] [facility] Department [place] [address] * (ABNORMAL) CBC with auto differential (11/17/2024 7:01 AM INTEGRATION SOLUTION ARCHITECT) WBC 6.5 3.8 - 9.9 K/cumm Comment:Testing performed by : [address] [address] Hgb 8.9(L) 11.9 - 15.5 g/dL DAYANA Comment:Testing performed by : [address] [address] Hct 27.6(L) 35.6 - 45.5 % DAYANA Comment:Testing performed by : [address] [address] Plt 227 150 - 400 K/cumm DAYANA Comment:Testing performed by : [address] [address] MPV 11.2 9.1 - 12.3 fL DAYANA Comment:Testing performed by : [address] [address] RBC 2.70(L) 3.90 - 5.20 M/cumm DAYANA Comment:Testing performed by : [address] [address] MCV 102.2(H) 81.3 - 96.4 fL DAYANA Comment:Testing performed by : [address] [address] MCH 33.0 27.1 - 33.3 pg DAYANA CARPIO Comment:Testing performed by : [address] [address] MCHC 32.2(L) 32.3 - 35.7 g/dL DAYANA CARPIO Comment:Testing performed by : [address] [address] RDW CV 16.6(H) 11.1 - 14.9 % DAYANA CARPIO Comment:Testing performed by : [address] [address] RDW SD 60.4(H) 35.7 - 48.1 fL DAYANA CARPIO Comment:Testing performed by : [address] [address] NRBC abs 0.00 0.00 - 0.01 K/cumm DAYANA CARPIO Comment:Testing performed by : [address] [address] Blood 11/17/2024 7:01 AM INTEGRATION SOLUTION ARCHITECT 11/17/2024 7:34 AM INTEGRATION SOLUTION ARCHITECT us Ivan Vargas MD LAB BLOOD ORDERABLES Final Re sult DAYANA [address] [facility] Department [place] [address] * (ABNORMAL) Comprehensive metabolic panel (11/17/2024 7:01 AM INTEGRATION SOLUTION ARCHITECT) Sodium 135 135 - 145 mmol/L Comment:Testing performed by : [address] [address] Potassium, pl 3.3 3.3 - 4.9 mmol/L DAYANA CARPIO Comment:Testing performed by : [address] [address] Chloride 92(L) 97 - 110 mmol/L DAYANA CARPIO Comment:Testing performed by : [address] [address] CO2 29 22 - 32 mmol/L DAYANA CARPIO Comment:Testing performed by : [address] [address] Anion gap 14 2 - 15 mmol/L DAYANA CARPIO Comment:Testing performed by : [address] [address] BUN 40(H) 6 - 25 mg/dL DAYANA CARPIO Comment:Testing performed by : [address] [address] Creatinine 1.90(H) 0.60 - 1.10 mg/dL DAYANA Comment:Testing performed by : [address] [address] Glucose 146 70 - 199 mg/dL [facility] Comment: Interpretive Data Fasting glucose >/= [...] was last revised 2022. Testing performed by: [address] [address] Calcium 9.3 8.5 - 10.3 mg/dL DAYANA Comment:Testing performed by : [address] [address] Bilirubin, total 1.6(H) 0.1 - 1.2 mg/dL [facility] Comment:Testing performed by : [address] [address] Protein, pl 6.1(L) 6.5 - 8.5 g/dL [facility] Comment:Testing performed by : [address] [address] Albumin 3.8 3.5 - 5.0 g/dL [facility] Comment:Testing performed by : [address] [address] Alk phos 309(H) 40 - 130 Units/L DAYANA Comment:Testing performed by : [address] [address] ALT 14 7 - 45 Units/L DAYANA Comment:Testing performed by : [address] [address] AST 32 10 - 45 Units/L DAYANA Comment:Testing performed by : [address] [address] Blood 11/17/2024 7:01 AM INTEGRATION SOLUTION ARCHITECT 11/17/2024 7:33 AM INTEGRATION SOLUTION ARCHITECT Ivan Vargas MD LAB BLOOD ORDERABLES Final Re sult Performing Organization Address [facility] Co de Phone Number DAYANA [address] [facility] [place] [address] * (ABNORMAL) POCT glucose (11/16/2024 7:44 PM INTEGRATION SOLUTION ARCHITECT) Glucose, POC 205(H) 70 - 199 mg/dL Comment:Testing performed by : [address] [address] Glucose comment 1 Use This Result DAYANA Comment:Testing performed by : [address] [address] Glucose comment 2 RN/MD Notified DAYANA Comment:Testing performed by : [address] [address] Blood 11/16/2024 7:44 PM INTEGRATION SOLUTION ARCHITECT 11/16/2024 7:44 PM INTEGRATION SOLUTION ARCHITECT Ivan Vargas MD LAB POCT ORDERABLES - DEVICE Final Result Performing Organization Address [facility] Co de Phone Number DAYANA [facility] [place] [address] * POCT glucose (11/16/2024 6:33 PM INTEGRATION SOLUTION ARCHITECT) Glucose, POC 155 70 - 199 mg/dL Comment:Testing performed by : [address] [address] Glucose comment 1 Use This Result DAYANA Comment:Testing performed by : [address] [address] Glucose comment 2 RN/MD Notified DAYANA Comment:Testing performed by : [address] [address] Blood 11/16/2024 6:33 PM INTEGRATION SOLUTION ARCHITECT 11/16/2024 6:33 PM INTEGRATION SOLUTION ARCHITECT Ivan Vargas MD LAB POCT ORDERABLES - DEVICE Final Result Performing Organization Address [facility] de Phone Number DAYANA [address] [place] [address] * (ABNORMAL) POCT glucose (11/16/2024 11:54 AM INTEGRATION SOLUTION ARCHITECT) [facility] Glucose, POC 203(H) 70 - 199 mg/dL Comment:Testing performed by : [address] [address] Glucose comment 1 Use This Result DAYANA Comment:Testing performed by : [address] [address] Glucose comment 2 RN/MD Notified DAYANA Comment:Testing performed by : [address] [address] Blood 11/16/2024 11:5 4 AM INTEGRATION SOLUTION ARCHITECT 11/16/2024 11:54 AM INTEGRATION SOLUTION ARCHITECT Ivan Vargas MD LAB POCT ORDERABLES - DEVICE Final Result Performing Organization Address [facility] Co de Phone Number DAYANA [address] [place] [address] * (ABNORMAL) eGFR (11/16/2024 9:56 AM INTEGRATION SOLUTION ARCHITECT) [facility] eGFR 26(L) >=60 mL/min/1. 73 m2 [...] was last reviewed 2021. Testing performed by: [facility], [address] [place] [address]., [address] Blood 11/16/2024 9:56 AM INTEGRATION SOLUTION ARCHITECT 11/16/2024 10:30 AM INTEGRATION SOLUTION ARCHITECT us Ivan Vargas MD LAB BLOOD ORDERABLES Final Re sult DAYANA [address] [facility] Department [place] [address] * (ABNORMAL) Differential, auto (11/16/2024 9:56 AM INTEGRATION SOLUTION ARCHITECT) Neutrophil abs 4.2 1.5 - 6.5 K/cumm Comment:Testing performed by : [address] [address] Imm gran abs 0.1 0.0 - 0.1 K/cumm DAYANA Comment:Testing performed by : [address] [address] Lymphocyte abs 0.5(L) 0.8 - 3.3 K/cumm DAYANA Comment:Testing performed by : [address] [address] Monocyte abs 0.8 0.2 - 0.8 K/cumm DAYANA Comment:Testing performed by : [address] [address] Eosinophil abs 0.6(H) 0.0 - 0.5 K/cumm DAYANA Comment:Testing performed by : [address] [address] Basophil abs 0.1 0.0 - 0.1 K/cumm DAYANA Comment:Testing performed by : [address] [address] Neutrophil pct 67.6 % [facility] Comment: Interpretive Data Percent cell count reference ranges are not reported, since discordance with absolute values may lead to misinterpretation of CBC data. Current Interpretive Data was last revised on 2018. Testing performed by: [address] [address] Imm gran pct 1.0 % [facility] Comment: Interpretive Data Percent cell count reference ranges are not reported, since discordance with absolute values may lead to misinterpretation of CBC data. Current Interpretive Data was last revised on 2018. Testing performed by: [address] [address] Lymphocyte pct 8.2 % [facility] Comment: Interpretive Data Percent cell count reference ranges are not reported, since discordance with absolute values may lead to misinterpretation of CBC data. Current Interpretive Data was last revised on 2018. Testing performed by: [address] [address] Monocyte pct 12.5 % [facility] Comment: Interpretive Data Percent cell count reference ranges are not reported, since discordance with absolute values may lead to misinterpretation of CBC data. Current Interpretive Data was last revised on 2018. Testing performed by: [address] [address] Eosinophil pct 9.6 % [facility] Comment: Interpretive Data Percent cell count reference ranges are not reported, since discordance with absolute values may lead to misinterpretation of CBC data. Current Interpretive Data was last revised on 2018. Testing performed by: [address] [address] Basophil pct 1.1 % [facility] Comment: Interpretive Data Percent cell count reference ranges are not reported, since discordance with absolute values may lead to misinterpretation of CBC data. Current Interpretive Data was last revised on 2018. Testing performed by: [address] [address] Blood 11/16/2024 9:56 AM INTEGRATION SOLUTION ARCHITECT 11/16/2024 10:29 AM INTEGRATION SOLUTION ARCHITECT us Ivan Vargas MD LAB BLOOD ORDERABLES Final Re sult [facility] [address] [facility] Department [place] [address] * (ABNORMAL) CBC with auto differential (11/16/2024 9:56 AM INTEGRATION SOLUTION ARCHITECT) WBC 6.2 3.8 - 9.9 K/cumm Comment:Testing performed by : [address] [address] Hgb 8.4(L) 11.9 - 15.5 g/dL DAYANA Comment:Testing performed by : [address] [address] Hct 26.7(L) 35.6 - 45.5 % DAYANA Comment:Testing performed by : [address] [address] Plt 216 150 - 400 K/cumm DAYANA Comment:Testing performed by : [address] [address] MPV 11.1 9.1 - 12.3 fL DAYANA Comment:Testing performed by : [address] [address] RBC 2.60(L) 3.90 - 5.20 M/cumm DAYANA Comment:Testing performed by : [address] [address] MCV 102.7(H) 81.3 - 96.4 fL DAYANA Comment:Testing performed by : [address] [address] MCH 32.3 27.1 - 33.3 pg DAYANA Comment:Testing performed by : [address] [address] MCHC 31.5(L) 32.3 - 35.7 g/dL DAYANA Comment:Testing performed by : [address] [address] RDW CV 16.6(H) 11.1 - 14.9 % DAYANA Comment:Testing performed by : [address], [address] RDW SD 61.2(H) 35.7 - 48.1 fL DAYANA CARPIO Comment:Testing performed by : [address] [address] NRBC abs 0.00 0.00 - 0.01 K/cumm DAYANA CARPIO Comment:Testing performed by : [address] [address] Blood 11/16/2024 9:56 AM INTEGRATION SOLUTION ARCHITECT 11/16/2024 10:29 AM INTEGRATION SOLUTION ARCHITECT Ivan Vargas MD LAB BLOOD ORDERABLES Final Re sult Performing Organization Address [facility] Co de Phone Number [address] [place] [address] * Hemoglobin A1c (11/16/2024 9:56 AM INTEGRATION SOLUTION ARCHITECT) Hgb A1C 5.4 4.0 - 5.6 % Comment:Testing performed by : [address] [address] Estimated Average Glucose 108 mg/dL DAYANA CARPIO Comment: The ADA recommends reporting an estimated Average Glucose (eAG) with all Hemoglobin A1c results using the equation derived from a study of 507 normal and diabetic adults. Minority populations were underrepresented and children were not included. (Diabetes Care 31:5927-1845, 2008). The eAG is not equivalent to a fasting glucose. Testing performed by: [address] [address] Blood 11/16/2024 9:56 AM INTEGRATION SOLUTION ARCHITECT 11/16/2024 10:29 AM INTEGRATION SOLUTION ARCHITECT Ivan Vargas MD LAB BLOOD ORDERABLES Final Re sult Performing Organization Address [facility] Co de Phone Number [facility] [address] [facility] [place] [address] * (ABNORMAL) Comprehensive metabolic panel (11/16/2024 9:56 AM INTEGRATION SOLUTION ARCHITECT) Sodium 133(L) 135 - 145 mmol/L Comment:Testing performed by : [facility], [address] [place] [address]., [address] Potassium, pl 3.1(L) 3.3 - 4.9 mmol/L [facility] Comment:Testing performed by : [address], [place]., [address] Chloride 92(L) 97 - 110 mmol/L DAYANA Comment:Testing performed by : [address], [place]., [address] CO2 27 22 - 32 mmol/L [facility] Comment:Testing performed by : [address], [place]., [address] Anion gap 14 2 - 15 mmol/L [facility] Comment:Testing performed by : [address], [place]., [address] BUN 39(H) 6 - 25 mg/dL [facility] Comment:Testing performed by : [address] [address] Creatinine 2.04(H) 0.60 - 1.10 mg/dL [facility] Comment:Testing performed by : [address] [address] Glucose 136 70 - 199 mg/dL [facility] Comment: Interpretive Data Fasting glucose >/= 126 [...] was last revised 2022. Testing performed by: [address] [address] Calcium 8.9 8.5 - 10.3 mg/dL [facility] Comment:Testing performed by : [address] [address] Bilirubin, total 1.7(H) 0.1 - 1.2 mg/dL [facility] Comment:Testing performed by : [address] [address] Protein, pl 6.6 6.5 - 8.5 g/dL DAYANA CARPIO Comment:Testing performed by : [address] [address] Albumin 4.2 3.5 - 5.0 g/dL DAYANA CARPIO Comment:Testing performed by : [address], [place]., [address] Alk phos 247(H) 40 - 130 Units/L DAYANA CARPIO Comment:Testing performed by : [address], [place]., [address] ALT 12 7 - 45 Units/L DAYANA Comment:Testing performed by : [address] [address] AST 30 10 - 45 Units/L DAYANA CARPIO Comment:Testing performed by : [address] [address] Blood 11/16/2024 9:56 AM INTEGRATION SOLUTION ARCHITECT 11/16/2024 10:30 AM INTEGRATION SOLUTION ARCHITECT Ivan Vargas MD LAB BLOOD ORDERABLES Final Re sult DAYANA [address] [facility] Department of Laboratories [place], [place] [id number] * POCT glucose (11/16/2024 8:53 AM INTEGRATION SOLUTION ARCHITECT) [facility] Glucose, POC 146 70 - 199 mg/dL Comment:Testing performed by : [address] [address] Glucose comment 1 Use This Result DAYANA CARPIO Comment:Testing performed by : [address] [address] Glucose comment 2 RN/MD Notified DAYANA CARPIO Comment:Testing performed by : [address] [address] Blood 11/16/2024 8:53 AM INTEGRATION SOLUTION ARCHITECT 11/16/2024 8:53 AM INTEGRATION SOLUTION ARCHITECT Ivan Vargas MD LAB POCT ORDERABLES - DEVICE Final Result Performing Organization Address City/[facility]/ZIP Co de Phone Number DAYANA [address] [address] * POCT glucose (11/16/2024 12:30 AM INTEGRATION SOLUTION ARCHITECT) Glucose, POC 156 70 - 199 mg/dL Comment:Testing performed by : [address] [address] Glucose comment 1 Use This Result DAYANA Comment:Testing performed by : [address] [address] Glucose comment 2 RN/MD Notified DAYANA Comment:Testing performed by : [address] [address] Blood 11/16/2024 12:3 0 AM INTEGRATION SOLUTION ARCHITECT 11/16/2024 12:30 AM INTEGRATION SOLUTION ARCHITECT Ivan Vargas MD LAB POCT ORDERABLES - DEVICE Final Result Performing Organization Address [facility] Co de Phone Number DAYANA [address] [address] * POCT glucose (11/15/2024 8:35 PM INTEGRATION SOLUTION ARCHITECT) Glucose, POC 196 70 - 199 mg/dL Comment:Testing performed by : [address] [address] Glucose comment 1 Use This Result DAYANA Comment:Testing performed by : [address] [address] Glucose comment 2 RN/MD Notified DAYANA Comment:Testing performed by : [address] [address] Blood 11/15/2024 8:35 PM INTEGRATION SOLUTION ARCHITECT 11/15/2024 8:35 PM INTEGRATION SOLUTION ARCHITECT Ivan Vargas MD LAB POCT ORDERABLES - DEVICE Final Result Performing Organization Address City/[facility]/ZIP Co de Phone Number DAYANA [address] [place] [address] * POCT glucose (11/15/2024 5:29 PM INTEGRATION SOLUTION ARCHITECT) Glucose, POC 152 70 - 199 mg/dL Comment:Testing performed by : [address] [address] Blood 11/15/2024 5:29 PM INTEGRATION SOLUTION ARCHITECT 11/15/2024 5:29 PM INTEGRATION SOLUTION ARCHITECT Ivan Vargas MD LAB POCT ORDERABLES - DEVICE Final Result DAYANA [address] [address] * POCT glucose (11/15/2024 1:28 PM INTEGRATION SOLUTION ARCHITECT) Glucose, POC 154 70 - 199 mg/dL Comment:Testing performed by : [address] [address] Blood 11/15/2024 1:28 PM INTEGRATION SOLUTION ARCHITECT 11/15/2024 1:28 PM INTEGRATION SOLUTION ARCHITECT Ivan Vargas MD LAB POCT ORDERABLES - DEVICE Final Result Performing Organization Address City/[facility]/ZIP Co de Phone Number DAYANA [address] [place] [address] * POCT glucose (11/15/2024 8:56 AM INTEGRATION SOLUTION ARCHITECT) Glucose, POC 130 70 - 199 mg/dL Comment:Testing performed by : [address] [address] Blood 11/15/2024 8:56 AM INTEGRATION SOLUTION ARCHITECT 11/15/2024 8:56 AM INTEGRATION SOLUTION ARCHITECT us Ivan Vargas MD LAB POCT ORDERABLES - DEVICE Final Result DAYANA [address] [place] [address] * (ABNORMAL) eGFR (11/15/2024 4:35 AM INTEGRATION SOLUTION ARCHITECT) eGFR 24(L) >=60 mL/min/1. 73 m2 Comment: [...] was last reviewed 2021. Testing performed by: [address] [address] Blood 11/15/2024 4:35 AM INTEGRATION SOLUTION ARCHITECT 11/15/2024 6:10 AM INTEGRATION SOLUTION ARCHITECT us Ivan Vargas MD LAB BLOOD ORDERABLES Final Re sult [facility] [address] [facility] Department [place] [address] * (ABNORMAL) Differential, auto (11/15/2024 4:35 AM INTEGRATION SOLUTION ARCHITECT) Pathologist [facility] Neutrophil abs 5.0 1.5 - 6.5 K/cumm Comment:Testing performed by : [address] [address] Imm gran abs 0.1 0.0 - 0.1 K/cumm DAYANA CARPIO Comment:Testing performed by : [address] [address] Lymphocyte abs 0.7(L) 0.8 - 3.3 K/cumm DAYANA Comment:Testing performed by : [address] [address] Monocyte abs 1.0(H) 0.2 - 0.8 K/cumm DAYANA Comment:Testing performed by : [address], [place]., [address] Eosinophil abs 0.6(H) 0.0 - 0.5 K/cumm [facility] Comment:Testing performed by : [address], [place]., [address] Basophil abs 0.1 0.0 - 0.1 K/cumm [facility] Comment:Testing performed by : [address] [address] Neutrophil pct 67.6 % [facility] Comment: Interpretive Data Percent cell count reference ranges are not reported, since discordance with absolute values may lead to misinterpretation of CBC data. Current Interpretive Data was last revised on 2018. Testing performed by: [address] [address] Imm gran pct 0.8 % [facility] Comment: Interpretive Data Percent cell count reference ranges are not reported, since discordance with absolute values may lead to misinterpretation of CBC data. Current Interpretive Data was last revised on 2018. Testing performed by: [address] [address] Lymphocyte pct 8.8 % [facility] Comment: Interpretive Data Percent cell count reference ranges are not reported, since discordance with absolute values may lead to misinterpretation of CBC data. Current Interpretive Data was last revised on 2018. Testing performed by: [address] [address] Monocyte pct 13.0 % [facility] Comment: Interpretive Data Percent cell count reference ranges are not reported, since discordance with absolute values may lead to misinterpretation of CBC data. Current Interpretive Data was last revised on 2018. Testing performed by: [address] [address] Eosinophil pct 8.7 % [facility] Comment: Interpretive Data Percent cell count reference ranges are not reported, since discordance with absolute values may lead to misinterpretation of CBC data. Current Interpretive Data was last revised on 2018. Testing performed by: [address] [address] Basophil pct 1.1 % DAYANA Comment: Interpretive Data Percent cell count reference ranges are not reported, since discordance with absolute values may lead to misinterpretation of CBC data. Current Interpretive Data was last revised on 2018. Testing performed by: [address] [address] Blood 11/15/2024 4:35 AM INTEGRATION SOLUTION ARCHITECT 11/15/2024 6:15 AM INTEGRATION SOLUTION ARCHITECT us Ivan Vargas MD LAB BLOOD ORDERABLES Final Re sult [facility] Department [place] [address] * (ABNORMAL) CBC with auto differential (11/15/2024 4:35 AM INTEGRATION SOLUTION ARCHITECT) WBC 7.4 3.8 - 9.9 K/cumm Comment:Testing performed by : [address] [address] Hgb 8.6(L) 11.9 - 15.5 g/dL DAYANA CARPIO Comment:Testing performed by : [address] [address] Hct 26.5(L) 35.6 - 45.5 % DAYANA Comment:Testing performed by : [address] [address] Plt 238 150 - 400 K/cumm DAYANA Comment:Testing performed by : [address] [address] MPV 11.0 9.1 - 12.3 fL DAYANA CARPIO Comment:Testing performed by : [address] [address] RBC 2.59(L) 3.90 - 5.20 M/cumm DAYANA CARPIO Comment:Testing performed by : [address] [address] MCV 102.3(H) 81.3 - 96.4 fL DAYANA CARPIO Comment:Testing performed by : [address] [address] MCH 33.2 27.1 - 33.3 pg DAYANA CARPIO Comment:Testing performed by : [address] [address] MCHC 32.5 32.3 - 35.7 g/dL DAYANA CARPIO Comment:Testing performed by : [address] [address] RDW CV 16.4(H) 11.1 - 14.9 % DAYANA CARPIO Comment:Testing performed by : [address] [address] RDW SD 60.1(H) 35.7 - 48.1 fL DAYANA CARPIO Comment:Testing performed by : [address] [address] NRBC abs 0.00 0.00 - 0.01 K/cumm DAYANA Comment:Testing performed by : [address], [address] Blood 11/15/2024 4:35 AM INTEGRATION SOLUTION ARCHITECT 11/15/2024 6:15 AM INTEGRATION SOLUTION ARCHITECT us Ivan Vargas MD LAB BLOOD ORDERABLES Final Re sult DAY[facility] [address] [facility] Department [place] [address] * (ABNORMAL) Protime-INR (11/15/2024 4:35 AM INTEGRATION SOLUTION ARCHITECT) PT 16.8(H) 12.0 - 14.6 sec Comment: Ref Range High Testing performed by: [address] [address] INR 1.4(H) 0.9 - 1.2 DAYANA CARPIO Comment: Ref Range High Interpretive data Oral anticoagulant therapeutic ranges: Venous thromboembolism prophylaxis or treatment: 2.0-3.0 CARDIOLOGY Standard range: 2.0-3.0 High-intensity range: 2.5-3.5 Refer to indication-specific guidelines for appropriate target ranges for prosthetic heart valve replacement. Current interpretive data was last revised on 2019. Testing performed by: [address] [address] Blood 11/15/2024 4:35 AM INTEGRATION SOLUTION ARCHITECT 11/15/2024 6:10 AM INTEGRATION SOLUTION ARCHITECT us Brvao Mckenzie MD LAB BLOOD ORDERABLES Final Re sult Performing Organization Address [facility] Co de Phone Number [address] [place] [address] * Magnesium (11/15/2024 4:35 AM INTEGRATION SOLUTION ARCHITECT) Pathologist [facility] Magnesium 1.7 1.4 - 2.5 mg/dL Comment:Testing performed by : [address] [address] Blood 11/15/2024 4:35 AM INTEGRATION SOLUTION ARCHITECT 11/15/2024 6:10 AM INTEGRATION SOLUTION ARCHITECT Ivan Vargas MD LAB BLOOD ORDERABLES Final Re sult Performing Organization Address [facility] Co de Phone Number [address] [place] [address] * (ABNORMAL) Comprehensive metabolic panel (11/15/2024 4:35 AM INTEGRATION SOLUTION ARCHITECT) Pathologist [facility] Sodium 135 135 - 145 mmol/L Comment:Testing performed by : [address] [address] Potassium, pl 3.1(L) 3.3 - 4.9 mmol/L DAYANA Comment:Testing performed by : [address] [address] Chloride 89(L) 97 - 110 mmol/L DAYANA Comment:Testing performed by : [address] [address] CO2 27 22 - 32 mmol/L DAYANA Comment:Testing performed by : [address] [address] Anion gap 19(H) 2 - 15 mmol/L [facility] Comment:Testing performed by : [address] [address] BUN 37(H) 6 - 25 mg/dL [facility] Comment:Testing performed by : [address] [address] Creatinine 2.20(H) 0.60 - 1.10 mg/dL [facility] Comment:Testing performed by : [address] [address] Glucose 103 70 - 199 mg/dL [facility] Comment: Interpretive Data Fasting glucose >/= 126 [...] was last revised 2022. Testing performed by: [address] [address] Calcium 8.4(L) 8.5 - 10.3 mg/dL [facility] Comment:Testing performed by : [address] [address] Bilirubin, total 1.6(H) 0.1 - 1.2 mg/dL [facility] Comment:Testing performed by : [address] [address] Protein, pl 6.1(L) 6.5 - 8.5 g/dL [facility] Comment:Testing performed by : [address] [address] Albumin 3.7 3.5 - 5.0 g/dL [facility] Comment:Testing performed by : [address] [address] Alk phos 267(H) 40 - 130 Units/L DAYANA CARPIO Comment:Testing performed by : [address] [address] ALT 14 7 - 45 Units/L DAYANA CARPIO Comment:Testing performed by : [address] [address] AST 30 10 - 45 Units/L DAYANA CARPIO Comment:Testing performed by : [address] [address] Blood 11/15/2024 4:35 AM INTEGRATION SOLUTION ARCHITECT 11/15/2024 6:10 AM INTEGRATION SOLUTION ARCHITECT Ivan Vargas MD LAB BLOOD ORDERABLES Final Re sult Performing Organization Address City/[facility]/ZIP Co de Phone Number DAY[facility] [place] [address] * POCT glucose (11/14/2024 9:28 PM INTEGRATION SOLUTION ARCHITECT) Glucose, POC 138 70 - 199 mg/dL Comment:Testing performed by : [address] [address] Glucose comment 1 Use This Result DAYANA Comment:Testing performed by : [address] [address] Glucose comment 2 RN/MD Notified DAYANA CARPIO Comment:Testing performed by : [address] [address] Blood 11/14/2024 9:28 PM INTEGRATION SOLUTION ARCHITECT 11/14/2024 9:28 PM INTEGRATION SOLUTION ARCHITECT Ivan Vargas MD LAB POCT ORDERABLES - DEVICE Final Result Performing Organization Address City/[facility]/ZIP Co de Phone Number [facility] [place] [address] * POCT glucose (11/14/2024 5:48 PM INTEGRATION SOLUTION ARCHITECT) Glucose, POC 120 70 - 199 mg/dL Comment:Testing performed by : [address] [address] Glucose comment 1 Use This Result DAYANA CARPIO Comment:Testing performed by : [address] [address] Glucose comment 2 RN/MD Notified [facility] Comment:Testing performed by : [address] [address] Blood 11/14/2024 5:48 PM INTEGRATION SOLUTION ARCHITECT 11/14/2024 5:48 PM INTEGRATION SOLUTION ARCHITECT Ivan Vargas MD LAB POCT ORDERABLES - DEVICE Final Result Performing Organization Address [facility] Co de Phone Number DAYANA [address] [place] [address] * Sodium, urine, random (11/14/2024 3:29 PM INTEGRATION SOLUTION ARCHITECT) Sodium, ur 42 mmol/L Comment: Interpretive Data No reference range established. Current interpretive data was last revised 2019. Urine 11/14/2024 3:29 PM INTEGRATION SOLUTION ARCHITECT 11/14/2024 6:41 PM INTEGRATION SOLUTION ARCHITECT Bravo Mckenzie MD LAB URINE ORDERABLES Final Re sult Performing Organization Address [facility] Co de Phone Number [address] [place] [address] * (ABNORMAL) Urinalysis reflex to microscopic and culture Urine, clean voided (11/14/2024 3:28 PM INTEGRATION SOLUTION ARCHITECT) Color, ur Yellow Yellow Comment:Testing performed by : [address] [address] Clarity, ur Clear Clear DAYANA Comment:Testing performed by : [address] [address] Specific gravity, ur 1.018 1.003 - 1.030 [facility] Comment:Testing performed by : [address] [address] pH, urine 5.5 DAYANA CARPIO Comment: Interpretive Data U rine pH is affected by diet, medications, systemic acid-base disturbances, and renal tubular function. pH may affect urinary stone formation. For example, urine pH below 6.0 may help reduce the tendency for calcium phosphate stones and pH greater than 6.0 may reduce the tendency for uric acid stone formation. Source: [facility] [employer] Current Interpretive Data was last revised on 2017 Testing performed by: [facility], [address] [place] [address], [place]., [address] Protein, ur ql Negative Negative DAYANA Comment:Testing performed by : [address], [place]., [address] Glucose, ur ql 1+(A) Negative DAYANA Comment:Testing performed by : [address], [place]., [address] Ketones, ur Negative Negative DAY[facility] Comment:Testing performed by : [address], [place]., [address] Bilirubin, ur Negative Negative [facility] Comment:Testing performed by : [address], [place]., [address] Blood, ur Negative Negative [facility] Comment:Testing performed by : [address], [place]., [address] Urobilinogen, ur <2.0 <2.0 mg/dL [facility] Comment:Testing performed by : [address], [place]., [address] Nitrite, ur Negative Negative DAY[facility] Comment:Testing performed by : [address], [place]., [address] Leukocyte esterase, ur Negative Negative DAY[facility] Comment:Testing performed by : [address], [place]., [address] UA reflex comment Reflex conditions for microscopic UA and culture not met. DAYANA Comment:Testing performed by : [address], [place]., [address] Urine, clean voided 11/14/2024 3:28 PM INTEGRATION SOLUTION ARCHITECT 11/14/2024 3:49 PM INTEGRATION SOLUTION ARCHITECT us Ivan Vargas MD LAB MICROBIOLOGY - GENERAL OR DERABLES Final Result DAY[facility] CARPIO [address] [place] [address] * Ammonia (11/14/2024 2:16 PM INTEGRATION SOLUTION ARCHITECT) Ammonia 34 <=50 mcmol/L Comment: Please note on 02/21/2024 the unit of measure changed from mcg/dL to mcmol/L. Current Interpretive Data was last revised on 2024 Testing performed by: [address] [address] Blood 11/14/2024 2:16 PM INTEGRATION SOLUTION ARCHITECT 11/14/2024 2:22 PM INTEGRATION SOLUTION ARCHITECT Ivan Vargas MD LAB BLOOD ORDERABLES Final Re sult Performing Organization Address [facility]/ZIP Co de Phone Number DAYANA [address] [address] * POCT glucose (11/14/2024 11:21 AM INTEGRATION SOLUTION ARCHITECT) Glucose, POC 129 70 - 199 mg/dL Comment:Testing performed by : [address] [address] Glucose comment 1 Use This Result DAYANA CARPIO Comment:Testing performed by : [address] [address] Glucose comment 2 RN/MD Notified DAYANA CARPIO Comment:Testing performed by : [address] [address] Blood 11/14/2024 11:2 1 AM INTEGRATION SOLUTION ARCHITECT 11/14/2024 11:21 AM INTEGRATION SOLUTION ARCHITECT Ivan Vargas MD LAB POCT ORDERABLES - DEVICE Final Result [facility] [place] [address] * POCT glucose (11/14/2024 8:11 AM INTEGRATION SOLUTION ARCHITECT) Glucose, POC 107 70 - 199 mg/dL Comment:Testing performed by : [address], [place]., [address] Glucose comment 1 Use This Result DAYANA Comment:Testing performed by : [address] [address] Blood 11/14/2024 8:11 AM INTEGRATION SOLUTION ARCHITECT 11/14/2024 8:11 AM INTEGRATION SOLUTION ARCHITECT Ivan Vargas MD LAB POCT ORDERABLES - DEVICE Final Result Performing Organization Address [facility] de Phone Number DAYANA [address] [facility] [place] [address] * (ABNORMAL) eGFR (11/14/2024 5:03 AM INTEGRATION SOLUTION ARCHITECT) eGFR 24(L) >=60 mL/min/1. 73 m2 Comment: [...] was last reviewed 2021. Testing performed by: [address] [address] Blood 11/14/2024 5:03 AM INTEGRATION SOLUTION ARCHITECT 11/14/2024 5:33 AM INTEGRATION SOLUTION ARCHITECT us Ivan Vargas MD LAB BLOOD ORDERABLES Final Re sult Performing Organization Address [facility] Co de Phone Number DAYANA [address] [facility] Department [place] [address] * (ABNORMAL) Differential, auto (11/14/2024 5:03 AM INTEGRATION SOLUTION ARCHITECT) Neutrophil abs 4.8 1.5 - 6.5 K/cumm Comment:Testing performed by : [address] [address] Imm gran abs 0.0 0.0 - 0.1 K/cumm DAYANA Comment:Testing performed by : [address] [address] Lymphocyte abs 0.7(L) 0.8 - 3.3 K/cumm DAYANA Comment:Testing performed by : [address] [address] Monocyte abs 1.0(H) 0.2 - 0.8 K/cumm DAYANA Comment:Testing performed by : [address] [address] Eosinophil abs 0.7(H) 0.0 - 0.5 K/cumm DAYANA Comment:Testing performed by : [address] [address] Basophil abs 0.1 0.0 - 0.1 K/cumm DAYANA Comment:Testing performed by : [address] [address] Neutrophil pct 65.6 % DAYANA Comment: Interpretive Data Percent cell count reference ranges are not reported, since discordance with absolute values may lead to misinterpretation of CBC data. Current Interpretive Data was last revised on 2018. Testing performed by: [address] [address] Imm gran pct 0.4 % DAYANA Comment: Interpretive Data Percent cell count reference ranges are not reported, since discordance with absolute values may lead to misinterpretation of CBC data. Current Interpretive Data was last revised on 2018. Testing performed by: [address] [address] Lymphocyte pct 10.0 % [facility] Comment: Interpretive Data Percent cell count reference ranges are not reported, since discordance with absolute values may lead to misinterpretation of CBC data. Current Interpretive Data was last revised on 2018. Testing performed by: [address] [address] Monocyte pct 13.4 % DAYANA Comment: Interpretive Data Percent cell count reference ranges are not reported, since discordance with absolute values may lead to misinterpretation of CBC data. Current Interpretive Data was last revised on 2018. Testing performed by: [address] [address] Eosinophil pct 9.4 % DAYANA Comment: Interpretive Data Percent cell count reference ranges are not reported, since discordance with absolute values may lead to misinterpretation of CBC data. Current Interpretive Data was last revised on 2018. Testing performed by: [address] [address] Basophil pct 1.2 % DAYANA Comment: Interpretive Data Percent cell count reference ranges are not reported, since discordance with absolute values may lead to misinterpretation of CBC data. Current Interpretive Data was last revised on 2018. Testing performed by: [address] [address] Blood 11/14/2024 5:03 AM INTEGRATION SOLUTION ARCHITECT 11/14/2024 5:34 AM INTEGRATION SOLUTION ARCHITECT us Ivan Vargas MD LAB BLOOD ORDERABLES Final Re sult [facility] [address] [facility] Department [place] [address] * (ABNORMAL) CBC with auto differential (11/14/2024 5:03 AM INTEGRATION SOLUTION ARCHITECT) WBC 7.3 3.8 - 9.9 K/cumm Comment:Testing performed by : [address] [address] Hgb 8.5(L) 11.9 - 15.5 g/dL DAYANA Comment:Testing performed by : [address] [address] Hct 26.2(L) 35.6 - 45.5 % DAYANA Comment:Testing performed by : [address] [address] Plt 212 150 - 400 K/cumm DAYANA Comment:Testing performed by : [address] [address] MPV 10.7 9.1 - 12.3 fL DAY[facility] Comment:Testing performed by : [address] [address] RBC 2.57(L) 3.90 - 5.20 M/cumm DAYANA Comment:Testing performed by : [address] [address] MCV 101.9(H) 81.3 - 96.4 fL DAYANA Comment:Testing performed by : [address] [address] MCH 33.1 27.1 - 33.3 pg DAYANA Comment:Testing performed by : [address] [address] MCHC 32.4 32.3 - 35.7 g/dL DAY[facility] Comment:Testing performed by : [address] [address] RDW CV 16.8(H) 11.1 - 14.9 % DAYANA Comment:Testing performed by : [address] [address] RDW SD 60.4(H) 35.7 - 48.1 fL [facility] Comment:Testing performed by : [address] [address] NRBC abs 0.00 0.00 - 0.01 K/cumm DAYANA Comment:Testing performed by : [address] [address] Blood 11/14/2024 5:03 AM INTEGRATION SOLUTION ARCHITECT 11/14/2024 5:34 AM INTEGRATION SOLUTION ARCHITECT us Ivan Vargas MD LAB BLOOD ORDERABLES Final Re sult DAYANA CARPIO [address] [facility] Department [place] [address] * (ABNORMAL) Comprehensive metabolic panel (11/14/2024 5:03 AM INTEGRATION SOLUTION ARCHITECT) Sodium 135 135 - 145 mmol/L Comment:Testing performed by : [address] [address] Potassium, pl 3.5 3.3 - 4.9 mmol/L DAY[facility] Comment:Testing performed by : [address] [address] Chloride 91(L) 97 - 110 mmol/L [facility] Comment:Testing performed by : [address] [address] CO2 28 22 - 32 mmol/L [facility] Comment:Testing performed by : [address] [address] Anion gap 16(H) 2 - 15 mmol/L [facility] Comment:Testing performed by : [address] [address] BUN 33(H) 6 - 25 mg/dL [facility] Comment:Testing performed by : [address] [address] Creatinine 2.20(H) 0.60 - 1.10 mg/dL [facility] Comment:Testing performed by : [address] [address] Glucose 94 70 - 199 mg/dL [facility] Comment: Interpretive Data Fasting glucose >/= [...] was last revised 2022. Testing performed by: [address] [address] Calcium 8.3(L) 8.5 - 10.3 mg/dL [facility] Comment:Testing performed by : [address] [address] Bilirubin, total 1.4(H) 0.1 - 1.2 mg/dL [facility] Comment:Testing performed by : [address] [address] Protein, pl 6.0(L) 6.5 - 8.5 g/dL [facility] Comment:Testing performed by : [address] [address] Albumin 3.6 3.5 - 5.0 g/dL [facility] Comment:Testing performed by : [address] [address] Alk phos 256(H) 40 - 130 Units/L [facility] Comment:Testing performed by : [address] [address] ALT 17 7 - 45 Units/L [facility] Comment:Testing performed by : [address] [address] AST 30 10 - 45 Units/L [facility] Comment:Testing performed by : [address] [address] Blood 11/14/2024 5:03 AM INTEGRATION SOLUTION ARCHITECT 11/14/2024 5:33 AM INTEGRATION SOLUTION ARCHITECT Ivan Vargas MD LAB BLOOD ORDERABLES Final Re sult [facility] [address] [facility] Department of Laboratories [place], [place] [id number] * POCT glucose (11/14/2024 4:41 AM INTEGRATION SOLUTION ARCHITECT) Glucose, POC 121 70 - 199 mg/dL Comment:Testing performed by : [address] [address] Glucose comment 1 Use This Result DAYANA Comment:Testing performed by : [address] [address] Blood 11/14/2024 4:41 AM INTEGRATION SOLUTION ARCHITECT 11/14/2024 4:41 AM INTEGRATION SOLUTION ARCHITECT us Ivan Vargas MD LAB POCT ORDERABLES - DEVICE Final Result Performing Organization Address [facility] Co de Phone Number DAYANA [address] [place] [address] * POCT glucose (11/13/2024 7:59 PM INTEGRATION SOLUTION ARCHITECT) Glucose, POC 155 70 - 199 mg/dL Comment:Testing performed by : [address] [address] Glucose comment 1 Use This Result DAYANA Comment:Testing performed by : [address] [address] Blood 11/13/2024 7:59 PM INTEGRATION SOLUTION ARCHITECT 11/13/2024 7:59 PM INTEGRATION SOLUTION ARCHITECT Ivan Vargas MD LAB POCT ORDERABLES - DEVICE Final Result Performing Organization Address [facility] de Phone Number DAYANA [address] [address] * POCT glucose (11/13/2024 5:16 PM INTEGRATION SOLUTION ARCHITECT) Glucose, POC 131 70 - 199 mg/dL Comment:Testing performed by : [address] [address] Glucose comment 1 Use This Result DAYANA Comment:Testing performed by : [address] [address] Glucose comment 2 RN/MD Notified DAYANA Comment:Testing performed by : [address] [address] Blood 11/13/2024 5:16 PM INTEGRATION SOLUTION ARCHITECT 11/13/2024 5:16 PM INTEGRATION SOLUTION ARCHITECT us Ivan Vargas MD LAB POCT ORDERABLES - DEVICE Final Result Performing Organization Address City/[facility] Co de Phone Number DAYANA [address] [address] * CT Knee Left WO Contrast (11/13/2024 4:52 PM INTEGRATION SOLUTION ARCHITECT) Anatomical Region Laterality Modality Lower Extremities Left Computed Tomog marquis 11/13/2024 5:29 PM INTEGRATION SOLUTION ARCHITECT Narrative 11/13/2024 5:36 PM INTEGRATION SOLUTION ARCHITECT EXAM DESCRIPTION: CT KNEE LEFT WO CONTRAST [...] Ed Ny M.D. JA: BETH Report ID: [id number] Reading Location: [id number] Procedure Note Ed Ny MD - 11/13/2024 [...] Ed Ny M.D. JA: BETH Report ID: [id number] Reading Location: [place] [address] us Ivan Vargas MD IMG CT PROCEDURES Final Resul t * US Chest (11/13/2024 2:21 PM INTEGRATION SOLUTION ARCHITECT) Anatomical Region Laterality Modality Chest N/A Ultrasound 11/13/2024 4:29 PM INTEGRATION SOLUTION ARCHITECT Narrative 11/13/2024 4:32 PM INTEGRATION SOLUTION ARCHITECT EXAM DESCRIPTION: US CHEST REASON FOR STUDY: Right pleural effusion, assess for loculations TECHNIQUE: A Dynamic assessment was performed of the right chest by the pilot plant operator helper, with selected grayscale images acquired and recorded [...] Will Stahl M.D. MZ: MZ Report ID: [id number] Reading Location: [id number] Procedure Note Will Stahl MD - 11/13/2024 EXAM DESCRIPTION: US CHEST REASON FOR STUDY: Right pleural effusion, assess for loculations TECHNIQUE: A Dynamic assessment was performed of the right chest by the pilot plant operator helper, with selected grayscale images acquired and recorded [...] Will Stahl M.D. MZ: MZ Report ID: [id number] Reading Location: [id number] us Ivan Vargas MD IM US PROCEDURES Final Resul t * POCT glucose (11/13/2024 2:13 PM INTEGRATION SOLUTION ARCHITECT) [facility] Glucose, POC 127 70 - 199 mg/dL Comment:Testing performed by : [address] [address] Glucose comment 1 Use This Result DAYANA CARPIO Comment:Testing performed by : [address] [address] Glucose comment 2 RN/MD Notified DAYANA CARPIO Comment:Testing performed by : [address] [address] Blood 11/13/2024 2:13 PM INTEGRATION SOLUTION ARCHITECT 11/13/2024 2:13 PM INTEGRATION SOLUTION ARCHITECT us Ivan Vargas MD LAB POCT ORDERABLES - DEVICE Final Result DAY[facility] MH [address] [facility] Department [place] [address] * FL Fluoro Guided Aspiration Knee Left (11/13/2024 1:30 PM INTEGRATION SOLUTION ARCHITECT) Anatomical Region Laterality Modality Knee Left Computed Radiogr aphy, Computed Radiography 11/13/2024 1:57 PM INTEGRATION SOLUTION ARCHITECT Narrative 11/13/2024 2:11 PM INTEGRATION SOLUTION ARCHITECT EXAM DESCRIPTION: FL FLUORO GUIDED ASPIRATION KNEE [...] Kedar Corrales M.D. MM: MM Report ID: [id number] Reading Location: [id number] Procedure Note Kedar Corrales MD - 11/13/2024 [...] Kedar Corrales M.D. MM: MM Report ID: [id number] Reading Location: [id number] us Ivan Vargas MD IMG FLUOROSCOPY PROCEDURES Fi nal Result * (ABNORMAL) eGFR (11/13/2024 9:02 AM INTEGRATION SOLUTION ARCHITECT) eGFR 34(L) >=60 mL/min/1. 73 m2 Comment: [...] was last reviewed 2021. Testing performed by: [address] [address] Blood 11/13/2024 9:02 AM INTEGRATION SOLUTION ARCHITECT 11/13/2024 10:02 AM INTEGRATION SOLUTION ARCHITECT Ivan Vargas MD LAB BLOOD ORDERABLES Final Re sult DAY[facility] [address] [facility] Department [place] [address] * (ABNORMAL) Differential, auto (11/13/2024 9:02 AM INTEGRATION SOLUTION ARCHITECT) Neutrophil abs 4.3 1.5 - 6.5 K/cumm Comment:Testing performed by : [address] [address] Imm gran abs 0.0 0.0 - 0.1 K/cumm DAYANA Comment:Testing performed by : [address] [address] Lymphocyte abs 0.7(L) 0.8 - 3.3 K/cumm DAYANA Comment:Testing performed by : [address] [address] Monocyte abs 0.9(H) 0.2 - 0.8 K/cumm DAYANA Comment:Testing performed by : [address] [address] Eosinophil abs 0.4 0.0 - 0.5 K/cumm DAYANA Comment:Testing performed by : [address] [address] Basophil abs 0.1 0.0 - 0.1 K/cumm DAYANA Comment:Testing performed by : [address] [address] Neutrophil pct 66.9 % [facility] Comment: Interpretive Data Percent cell count reference ranges are not reported, since discordance with absolute values may lead to misinterpretation of CBC data. Current Interpretive Data was last revised on 2018. Testing performed by: [address] [address] Imm gran pct 0.6 % [facility] Comment: Interpretive Data Percent cell count reference ranges are not reported, since discordance with absolute values may lead to misinterpretation of CBC data. Current Interpretive Data was last revised on 2018. Testing performed by: [address] [address] Lymphocyte pct 11.6 % [facility] Comment: Interpretive Data Percent cell count reference ranges are not reported, since discordance with absolute values may lead to misinterpretation of CBC data. Current Interpretive Data was last revised on 2018. Testing performed by: [address] [address] Monocyte pct 14.3 % [facility] Comment: Interpretive Data Percent cell count reference ranges are not reported, since discordance with absolute values may lead to misinterpretation of CBC data. Current Interpretive Data was last revised on 2018. Testing performed by: [address] [address] Eosinophil pct 5.5 % [facility] Comment: Interpretive Data Percent cell count reference ranges are not reported, since discordance with absolute values may lead to misinterpretation of CBC data. Current Interpretive Data was last revised on 2018. Testing performed by: [address] [address] Basophil pct 1.1 % [facility] Comment: Interpretive Data Percent cell count reference ranges are not reported, since discordance with absolute values may lead to misinterpretation of CBC data. Current Interpretive Data was last revised on 2018. Testing performed by: [address] [address] Blood 11/13/2024 9:02 AM INTEGRATION SOLUTION ARCHITECT 11/13/2024 10:03 AM INTEGRATION SOLUTION ARCHITECT us Ivan Vargas MD LAB BLOOD ORDERABLES Final Re sult [facility] [address] [facility] Department [place] [address] * (ABNORMAL) CBC with auto differential (11/13/2024 9:02 AM INTEGRATION SOLUTION ARCHITECT) WBC 6.4 3.8 - 9.9 K/cumm Comment:Testing performed by : [address] [address] Hgb 8.4(L) 11.9 - 15.5 g/dL [facility] Comment:Testing performed by : [address] [address] Hct 25.2(L) 35.6 - 45.5 % [facility] Comment:Testing performed by : [address] [address] Plt 196 150 - 400 K/cumm [facility] Comment:Testing performed by : [address] [address] MPV 10.5 9.1 - 12.3 fL [facility] Comment:Testing performed by : [address] [address] RBC 2.52(L) 3.90 - 5.20 M/cumm [facility] Comment:Testing performed by : [address] [address] MCV 100.0(H) 81.3 - 96.4 fL [facility] Comment:Testing performed by : [address] [address] MCH 33.3 27.1 - 33.3 pg [facility] Comment:Testing performed by : [address] [address] MCHC 33.3 32.3 - 35.7 g/dL [facility] CARPIO Comment:Testing performed by : [address] [address] RDW CV 16.8(H) 11.1 - 14.9 % [facility] CARPIO Comment:Testing performed by : [address] [address] RDW SD 59.5(H) 35.7 - 48.1 fL [facility] CARPIO Comment:Testing performed by : [address] [address] NRBC abs 0.00 0.00 - 0.01 K/cumm [facility] Comment:Testing performed by : [address] [address] Blood 11/13/2024 9:02 AM INTEGRATION SOLUTION ARCHITECT 11/13/2024 10:03 AM INTEGRATION SOLUTION ARCHITECT Ivan Vargas MD LAB BLOOD ORDERABLES Final Re sult Performing Organization Address City/[facility] Co de Phone Number [address] [place] [address] * Magnesium (11/13/2024 9:02 AM INTEGRATION SOLUTION ARCHITECT) Magnesium 1.5 1.4 - 2.5 mg/dL Comment:Testing performed by : [address] [address] Blood 11/13/2024 9:02 AM INTEGRATION SOLUTION ARCHITECT 11/13/2024 10:02 AM INTEGRATION SOLUTION ARCHITECT Ivan Vargas MD LAB BLOOD ORDERABLES Final Re sult Performing Organization Address City/[facility]/ZIP Co de Phone Number [address] [address] * (ABNORMAL) Comprehensive metabolic panel (11/13/2024 9:02 AM INTEGRATION SOLUTION ARCHITECT) Sodium 135 135 - 145 mmol/L Comment:Testing performed by : [address] [address] Potassium, pl 3.6 3.3 - 4.9 mmol/L [facility] Comment:Testing performed by : [address] [address] Chloride 92(L) 97 - 110 mmol/L [facility] Comment:Testing performed by : [address], [place]., [address] CO2 29 22 - 32 mmol/L [facility] Comment:Testing performed by : [address] [address] Anion gap 14 2 - 15 mmol/L [facility] Comment:Testing performed by : [address], [place]., [address] BUN 28(H) 6 - 25 mg/dL [facility] Comment:Testing performed by : [address], [place]., [address] Creatinine 1.60(H) 0.60 - 1.10 mg/dL [facility] Comment:Testing performed by : [address] [address] Glucose 114 70 - 199 mg/dL [facility] Comment: Interpretive Data Fasting glucose >/= 126 [...] was last revised 2022. Testing performed by: [address] [address] Calcium 8.9 8.5 - 10.3 mg/dL [facility] Comment:Testing performed by : [address] [address] Bilirubin, total 1.5(H) 0.1 - 1.2 mg/dL [facility] Comment:Testing performed by : [address] [address] Protein, pl 5.7(L) 6.5 - 8.5 g/dL [facility] Comment:Testing performed by : [address] [address] Albumin 3.3(L) 3.5 - 5.0 g/dL [facility] CARPIO Comment:Testing performed by : [address] [address] Alk phos 272(H) 40 - 130 Units/L [facility] Comment:Testing performed by : [address] [address] ALT 19 7 - 45 Units/L [facility] Comment:Testing performed by : [address], [address] AST 36 10 - 45 Units/L [facility] Comment:Testing performed by : [address], [address] Blood 11/13/2024 9:02 AM INTEGRATION SOLUTION ARCHITECT 11/13/2024 10:02 AM INTEGRATION SOLUTION ARCHITECT Ivan Vargas MD LAB BLOOD ORDERABLES Final Re sult Performing Organization Address [facility] de Phone Number [facility] [address] [facility] Department [place] [address] * POCT glucose (11/13/2024 8:00 AM INTEGRATION SOLUTION ARCHITECT) [facility] Glucose, POC 128 70 - 199 mg/dL Comment:Testing performed by : [address] [address] Glucose comment 1 Use This Result [facility] Comment:Testing performed by : [address] [address] Glucose comment 2 RN/MD Notified [facility] Comment:Testing performed by : [address] [address] Blood 11/13/2024 8:00 AM INTEGRATION SOLUTION ARCHITECT 11/13/2024 8:00 AM INTEGRATION SOLUTION ARCHITECT Ivan Vargas MD LAB POCT ORDERABLES - DEVICE Final Result Performing Organization Address City/[facility] Co de Phone Number [facility] [address] [address] * Strep pneumoniae antigen, urine Urine (11/13/2024 12:28 AM INTEGRATION SOLUTION ARCHITECT) S. pneumoniae Ag Negative Negative Comment: Interpretive [...] on 2022 Urine 11/13/2024 12:2 8 AM INTEGRATION SOLUTION ARCHITECT 11/13/2024 2:18 AM INTEGRATION SOLUTION ARCHITECT Tino Lynne MD LAB MICROBIOLOGY - G ENERAL ORDERABLES Final Result Performing Organization Address [facility] de Phone Number MARY ALICE[address] [address] * Legionella antigen Urine (11/13/2024 12:28 AM INTEGRATION SOLUTION ARCHITECT) Legionella Ag Negative Negative Comment: Interpretive Data This test detects only Legionella pneumophila serogroup 1 antigen. Testing performed by [facility] ([phone]). Current interpretive data was last revised on 2020. Testing performed by: [facility], [address] [place]., [address] Urine 11/13/2024 12:2 8 AM INTEGRATION SOLUTION ARCHITECT 11/13/2024 3:19 AM INTEGRATION SOLUTION ARCHITECT us Tino Lynne MD LAB MICROBIOLOGY - G ENERAL ORDERABLES Final Result Performing Organization Address [facility] Co de Phone Number [place] [phone] [facility] [place] [address] * (ABNORMAL) POCT glucose (11/12/2024 10:04 PM INTEGRATION SOLUTION ARCHITECT) [facility] Glucose, POC 207(H) 70 - 199 mg/dL Comment:Testing performed by : [facility], [address] [place] [address]., [address] Glucose comment 1 Use This Result DAY[facility] CARPIO Comment:Testing performed by : [facility], [address] [place] [address]., [address] Blood 11/12/2024 10:0 4 PM INTEGRATION SOLUTION ARCHITECT 11/12/2024 10:04 PM INTEGRATION SOLUTION ARCHITECT us Ivan Vargas MD LAB POCT ORDERABLES - DEVICE Final Result [facility] CARPIO [address] [facility] Department [place] [address] * TRANSTHORACIC ECHO (TTE) COMPLETE W DOPPLER/CF WO CONTRAST (11/12/2024 4:14 PM INTEGRATION SOLUTION ARCHITECT) Anatomical Region Laterality Modality Ultrasound 11/12/2024 3:49 PM INTEGRATION SOLUTION ARCHITECT Narrative 11/12/2024 6:37 PM INTEGRATION SOLUTION ARCHITECT Adult Echocardiogram + ----- + :Name: LOU ISLAS Study Date: 11/12/2024 Status: E : : Patient Location: [address]^[facility][id number][facility] : : Weight: 179 lbBP: [...] Date: 11/12/2024Status: MHE : : Patient Location: [address]^[id number]^MHeight: 65 in : : : 179 lbBP: [...] 1 or 2 Views (11/12/2024 2:18 PM INTEGRATION SOLUTION ARCHITECT) Anatomical Region Laterality Modality Lower Extremities, Knee Left Computed Radiography 11/12/2024 3:15 PM INTEGRATION SOLUTION ARCHITECT Narrative 11/12/2024 3:19 PM INTEGRATION SOLUTION ARCHITECT EXAM DESCRIPTION: XR KNEE LEFT 1 OR [...] Juan Daily M.D. MF: SHARIFA Report ID: [id number] Reading Location: [id number] Procedure Note Juan Daily MD - 11/12/2024 [...] Juan Daily M.D. MF: SHARIFA Report ID: [id number] Reading Location: [id number] us Ivan Vargas MD IMG XR PROCEDURES Final Resul t * POCT glucose (11/12/2024 12:11 PM INTEGRATION SOLUTION ARCHITECT) [facility] Glucose, POC 156 70 - 199 mg/dL Comment:Testing performed by : [address] [address] Glucose comment 1 Use This Result [facility] Comment:Testing performed by : [address] [address] Blood 11/12/2024 12:1 1 PM INTEGRATION SOLUTION ARCHITECT 11/12/2024 12:11 PM INTEGRATION SOLUTION ARCHITECT Ivan Vargas MD LAB POCT ORDERABLES - DEVICE Final Result Performing Organization Address [facility] Co de Phone Number DAY[facility] [address] [place] [address] * POCT glucose (11/12/2024 10:02 AM INTEGRATION SOLUTION ARCHITECT) [facility] Glucose, POC 125 70 - 199 mg/dL Comment:Testing performed by : [address] [address] Glucose comment 1 Use This Result [facility] Comment:Testing performed by : [address] [address] Blood 11/12/2024 10:0 2 AM INTEGRATION SOLUTION ARCHITECT 11/12/2024 10:02 AM INTEGRATION SOLUTION ARCHITECT Ivan Vargas MD LAB POCT ORDERABLES - DEVICE Final Result Performing Organization Address City/[facility] Co de Phone Number [address] [place] [address] * (ABNORMAL) eGFR (11/12/2024 8:29 AM INTEGRATION SOLUTION ARCHITECT) [facility] eGFR 49(L) >=60 mL/min/1. 73 m2 [...] was last reviewed 2021. Testing performed by: [address] [address] Blood 11/12/2024 8:29 AM INTEGRATION SOLUTION ARCHITECT 11/12/2024 9:02 AM INTEGRATION SOLUTION ARCHITECT Tino Lynne MD LAB BLOOD ORDERABLES Final Result [facility] [address] Department [place] [address] * (ABNORMAL) Differential, auto (11/12/2024 8:29 AM INTEGRATION SOLUTION ARCHITECT) Neutrophil abs 5.0 1.5 - 6.5 K/cumm Comment:Testing performed by : [address] [address] Imm gran abs 0.1 0.0 - 0.1 K/cumm [facility] Comment:Testing performed by : [address] [address] Lymphocyte abs 0.8 0.8 - 3.3 K/cumm [facility] Comment:Testing performed by : [address] [address] Monocyte abs 0.9(H) 0.2 - 0.8 K/cumm [facility] CARPIO Comment:Testing performed by : [address] [address] Eosinophil abs 0.3 0.0 - 0.5 K/cumm [facility] Comment:Testing performed by : [address] [address] Basophil abs 0.1 0.0 - 0.1 K/cumm [facility] Comment:Testing performed by : [address] [address] Neutrophil pct 70.4 % [facility] Comment: Interpretive Data Percent cell count reference ranges are not reported, since discordance with absolute values may lead to misinterpretation of CBC data. Current Interpretive Data was last revised on 2018. Testing performed by: [address] [address] Imm gran pct 1.0 % [facility] Comment: Interpretive Data Percent cell count reference ranges are not reported, since discordance with absolute values may lead to misinterpretation of CBC data. Current Interpretive Data was last revised on 2018. Testing performed by: [address] [address] Lymphocyte pct 11.1 % [facility] Comment: Interpretive Data Percent cell count reference ranges are not reported, since discordance with absolute values may lead to misinterpretation of CBC data. Current Interpretive Data was last revised on 2018. Testing performed by: [address] [address] Monocyte pct 12.5 % [facility] Comment: Interpretive Data Percent cell count reference ranges are not reported, since discordance with absolute values may lead to misinterpretation of CBC data. Current Interpretive Data was last revised on 2018. Testing performed by: [address] [address] Eosinophil pct 4.1 % [facility] Comment: Interpretive Data Percent cell count reference ranges are not reported, since discordance with absolute values may lead to misinterpretation of CBC data. Current Interpretive Data was last revised on 2018. Testing performed by: [address] [address] Basophil pct 0.9 % [facility] Comment: Interpretive Data Percent cell count reference ranges are not reported, since discordance with absolute values may lead to misinterpretation of CBC data. Current Interpretive Data was last revised on 2018. Testing performed by: [address] [place] [address] Blood 11/12/2024 8:29 AM INTEGRATION SOLUTION ARCHITECT 11/12/2024 9:03 AM INTEGRATION SOLUTION ARCHITECT Tino Lynne MD LAB BLOOD ORDERABLES Final Result [facility] [address] [facility] Department [place] [address] * (ABNORMAL) CBC with auto differential (11/12/2024 8:29 AM INTEGRATION SOLUTION ARCHITECT) Pathologist [facility] WBC 7.0 3.8 - 9.9 K/cumm Comment:Testing performed by : [address] [address] Hgb 8.7(L) 11.9 - 15.5 g/dL [facility] Comment:Testing performed by : [address] [address] Hct 26.9(L) 35.6 - 45.5 % [facility] Comment:Testing performed by : [address] [address] Plt 203 150 - 400 K/cumm [facility] Comment:Testing performed by : [address] [address] MPV 10.4 9.1 - 12.3 fL [facility] Comment:Testing performed by : [address] [address] RBC 2.68(L) 3.90 - 5.20 M/cumm [facility] Comment:Testing performed by : [address] [address] MCV 100.4(H) 81.3 - 96.4 fL [facility] Comment:Testing performed by : [address] [address] MCH 32.5 27.1 - 33.3 pg [facility] CARPIO Comment:Testing performed by : [address] [address] MCHC 32.3 32.3 - 35.7 g/dL [facility] CARPIO Comment:Testing performed by : [address] [address] RDW CV 17.0(H) 11.1 - 14.9 % [facility] CARPIO Comment:Testing performed by : [address] [address] RDW SD 59.2(H) 35.7 - 48.1 fL [facility] CARPIO Comment:Testing performed by : [address] [address] NRBC abs 0.00 0.00 - 0.01 K/cumm [facility] CARPIO Comment:Testing performed by : [address] [address] Blood 11/12/2024 8:29 AM INTEGRATION SOLUTION ARCHITECT 11/12/2024 9:03 AM INTEGRATION SOLUTION ARCHITECT Tino Lynne MD LAB BLOOD ORDERABLES Final Result Performing Organization Address City/State/[facility] Co de Phone Number DAYANA CARPIO [facility] [facility] Department [place] [address] * (ABNORMAL) Comprehensive metabolic panel (11/12/2024 8:29 AM INTEGRATION SOLUTION ARCHITECT) Sodium 137 135 - 145 mmol/L Comment:Testing performed by : [address] [address] Potassium, pl 3.4 3.3 - 4.9 mmol/L [facility] CARPIO Comment:Testing performed by : [address] [address] Chloride 94(L) 97 - 110 mmol/L [facility] CARPIO Comment:Testing performed by : [address] [address] CO2 29 22 - 32 mmol/L [facility] CARPIO Comment:Testing performed by : [address] [address] Anion gap 14 2 - 15 mmol/L [facility] CARPIO Comment:Testing performed by : [address] [address] BUN 23 6 - 25 mg/dL [facility] CARPIO Comment:Testing performed by : [address] [address] Creatinine 1.20(H) 0.60 - 1.10 mg/dL [facility] Comment:Testing performed by : [address] [address] Glucose 112 70 - 199 mg/dL [facility] Comment: Interpretive Data Fasting glucose >/= 126 [...] was last revised 2022. Testing performed by: [address] [address] Calcium 9.3 8.5 - 10.3 mg/dL [facility] Comment:Testing performed by : [address] [address] Bilirubin, total 1.8(H) 0.1 - 1.2 mg/dL [facility] Comment:Testing performed by : [address] [address] Protein, pl 5.9(L) 6.5 - 8.5 g/dL [facility] Comment:Testing performed by : [address] [address] Albumin 3.5 3.5 - 5.0 g/dL [facility] Comment:Testing performed by : [address] [address] Alk phos 297(H) 40 - 130 Units/L [facility] Comment:Testing performed by : [address] [address] ALT 21 7 - 45 Units/L [facility] Comment:Testing performed by : [address] [address] AST 46(H) 10 - 45 Units/L [facility] Comment:Testing performed by : [address], [place]., [address] Blood 11/12/2024 8:29 AM INTEGRATION SOLUTION ARCHITECT 11/12/2024 9:02 AM INTEGRATION SOLUTION ARCHITECT Tino Lynne MD LAB BLOOD ORDERABLES Final Result Performing Organization Address [facility] Co de Phone Number DAYANA [address] [address] * POCT glucose (11/12/2024 3:01 AM INTEGRATION SOLUTION ARCHITECT) Glucose, POC 118 70 - 199 mg/dL Comment:Testing performed by : [facility], [address] [place] [address]., [address] Glucose comment 1 Use This Result DAYANA Comment:Testing performed by : [facility], [address] [place] [address]., [address] Blood 11/12/2024 3:01 AM INTEGRATION SOLUTION ARCHITECT 11/12/2024 3:01 AM INTEGRATION SOLUTION ARCHITECT Tino Lynne MD LAB POCT ORDERABLES - DEVICE Final Result Performing Organization Address [facility] Co de Phone Number DAYANA [address] [address] * Blood culture Blood Peripheral (11/11/2024 9:45 PM INTEGRATION SOLUTION ARCHITECT) Report Final Report: No growth Comment:Testing performed by : [facility], [address] [place]., [address] Blood (Peripheral) 11/11/2024 9:45 PM INTEGRATION SOLUTION ARCHITECT 11/12/2024 1:21 AM INTEGRATION SOLUTION ARCHITECT Narrative DAYANA - 11/16/2024 7:00 AM INTEGRATION SOLUTION ARCHITECT From a different site than #1. Draw [...] performance characteristics have been verified by the [facility]. For questions about this culture, contact the Microbiology Laboratory at [phone]. Interpretive data was last revised on 24. Bravo Chino MD LAB MICROBIOLOGY - GEN ERAL ORDERABLES Final Result [facility] [address] [facility] [address] Department [place] [address] * Blood culture Blood Peripheral (11/11/2024 9:45 PM INTEGRATION SOLUTION ARCHITECT) Report Final Report: No growth Comment:Testing performed by : [facility], [address] [facility] [place]., [address] Blood (Peripheral) 11/11/2024 9:45 PM INTEGRATION SOLUTION ARCHITECT 11/12/2024 1:22 AM INTEGRATION SOLUTION ARCHITECT Kaye ANNE - 11/16/2024 7:00 AM INTEGRATION SOLUTION ARCHITECT Draw Blood cultures before administration of Antibiotics [...] performance characteristics have been verified by the [facility]. For questions about this culture, contact the Microbiology Laboratory at [phone]. Interpretive data was last revised on 24. us Bravo Chino MD LAB MICROBIOLOGY - GEN ERAL ORDERABLES Final Result [facility] [address] [facility] Department [place] [address] * CT Chest Abdomen Pelvis WO Contrast (11/11/2024 8:07 PM INTEGRATION SOLUTION ARCHITECT) Anatomical Region Laterality Modality Body N/A Computed Tomogra phy 11/11/2024 8:12 PM INTEGRATION SOLUTION ARCHITECT Narrative 11/11/2024 8:29 PM INTEGRATION SOLUTION ARCHITECT EXAM DESCRIPTION: CT CHEST ABDOMEN PELVIS WO CONTRAST REASON FOR STUDY: fluid overload, CHF, possible cirrhosis Pt c/o increasing swelling to bilateral lower extremities that is spreading to lower abd x approx 3 weeks. Pt currently in residential for rehab d/t recent hospital admission for [...] in the right lower lobe dependently. PLEURA: Jofjw-qj-jgrvkpck right pleural effusion is present. MEDIASTINUM/JETT: No [...] streak artifact. OTHER: No significant abnormality. IMPRESSION: Vsooc-cf-pdgsintl right pleural effusion with right lower lobe consolidation. Small patchy areas of density in the right upper and lower lobes may be infectious or inflammatory. Short-term follow-up is recommended. Small pericardial effusion. Hepatic cirrhosis. Cholelithiasis. Diffuse atherosclerotic disease. THIS IS AN ELECTRONICALLY VERIFIED FINAL REPORT 11/11/2024 8:29 PM - Electronically signed by Pedro De La Vega M.D. KH: [id number] Report ID: [id number] Reading Location: [place] [address] Procedure Note Pedro De La Vega MD - 11/11/2024 EXAM DESCRIPTION: CT CHEST ABDOMEN PELVIS WO CONTRAST REASON FOR STUDY: fluid overload, CHF, possible cirrhosis Pt c/o increasing swelling to bilateral lower extremities that isspreading to lower abd x approx 3 weeks. Pt [facility]/ sepsis in [...] in the right lower lobe dependently. PLEURA: Bjwrv-ep-vrulkznd right pleural effusion is present. MEDIASTINUM/JETT: No [...] streak artifact. OTHER: No significant abnormality. IMPRESSION: Scaud-gw-zgzwadfb right pleural effusion with right lower lobeconsolidation. Small patchy areas of density in the right upper and lower lobes may be infectious or inflammatory. Short-term follow-up is recommended. Small pericardial effusion. Hepatic cirrhosis. Cholelithiasis. Diffuse atherosclerotic disease. THIS IS AN ELECTRONICALLY VERIFIED FINAL REPORT 11/11/2024 8:29 PM - Electronically signed by Pedro De La Vega M.D. KH: [id number] Report ID: [id number] Reading Location: [id number] us Bravo Chino MD IMG CT PROCEDURES Manda l Result * XR Chest 1 Vw Portable (if patient condition/safety warrant portable) (11/11/2024 5:30 PM INTEGRATION SOLUTION ARCHITECT) Anatomical Region Laterality Modality Body, Chest N/A Computed Radiogr aphy 11/11/2024 6:12 PM INTEGRATION SOLUTION ARCHITECT Narrative 11/11/2024 6:12 PM INTEGRATION SOLUTION ARCHITECT EXAM DESCRIPTION: XR CHEST 1 VIEW REASON FOR STUDY: Shortness of breath Pt c/o increasing swelling to bilateral lower extremities that is spreading to lower abd x approx 3 weeks. Pt currently in residential for rehab d/t recent hospital admission for [...] Eric Larson M.D. AG: CAM Report ID: [id number] Reading Location: [id number] Procedure Note Eric Larson MD - 11/11/2024 EXAM DESCRIPTION: XR CHEST 1 VIEW REASON FOR STUDY: Shortness of breath Pt c/o increasing swelling to bilateral lower extremities that isspreading to lower abd x approx 3 weeks. Pt currently in [facility] admission for similar complaints/ sepsis in [...] Eric Larson M.D. AG: AG Report ID: [id number] Reading Location: [id number] Bravo Chino MD IMG XR PROCEDURES Manda l Result * Sepsis Lactate w/ Reflex (11/11/2024 5:10 PM INTEGRATION SOLUTION ARCHITECT) Sepsis Lactate 1.6 0.7 - 2.0 mmol/L Comment:Testing performed by : [facility], [address] [place] [address]., [id number] Blood 11/11/2024 5:10 PM INTEGRATION SOLUTION ARCHITECT 11/11/2024 5:16 PM INTEGRATION SOLUTION ARCHITECT Bravo Chino MD LAB BLOOD ORDERABLES F inal Result [facility] [address] Department [place] [address] * (ABNORMAL) eGFR (11/11/2024 5:10 PM INTEGRATION SOLUTION ARCHITECT) eGFR 43(L) >=60 mL/min/1. 73 m2 Comment: [...] was last reviewed 2021. Testing performed by: [address] [address] Blood 11/11/2024 5:10 PM INTEGRATION SOLUTION ARCHITECT 11/11/2024 5:16 PM INTEGRATION SOLUTION ARCHITECT us Gloria Steen NP LAB BLOOD ORDERABLES Final Resul t [facility] [address] Department [place] [address] * (ABNORMAL) Differential, auto (11/11/2024 5:10 PM INTEGRATION SOLUTION ARCHITECT) Pathologist [facility] Neutrophil abs 4.9 1.5 - 6.5 K/cumm Comment:Testing performed by : [address] [address] Imm gran abs 0.1 0.0 - 0.1 K/cumm [facility] Comment:Testing performed by : [address] [address] Lymphocyte abs 0.7(L) 0.8 - 3.3 K/cumm [facility] Comment:Testing performed by : [address] [address] Monocyte abs 0.9(H) 0.2 - 0.8 K/cumm [facility] Comment:Testing performed by : [address] [address] Eosinophil abs 0.2 0.0 - 0.5 K/cumm [facility] Comment:Testing performed by : [address], [place]., [address] Basophil abs 0.1 0.0 - 0.1 K/cumm [facility] Comment:Testing performed by : [address] [address] Neutrophil pct 71.4 % [facility] Comment: Interpretive Data Percent cell count reference ranges are not reported, since discordance with absolute values may lead to misinterpretation of CBC data. Current Interpretive Data was last revised on 2018. Testing performed by: [address] [address] Imm gran pct 1.0 % [facility] Comment: Interpretive Data Percent cell count reference ranges are not reported, since discordance with absolute values may lead to misinterpretation of CBC data. Current Interpretive Data was last revised on 2018. Testing performed by: [address] [address] Lymphocyte pct 10.8 % [facility] Comment: Interpretive Data Percent cell count reference ranges are not reported, since discordance with absolute values may lead to misinterpretation of CBC data. Current Interpretive Data was last revised on 2018. Testing performed by: [address] [address] Monocyte pct 13.0 % [facility] Comment: Interpretive Data Percent cell count reference ranges are not reported, since discordance with absolute values may lead to misinterpretation of CBC data. Current Interpretive Data was last revised on 2018. Testing performed by: [address] [address] Eosinophil pct 3.1 % [facility] Comment: Interpretive Data Percent cell count reference ranges are not reported, since discordance with absolute values may lead to misinterpretation of CBC data. Current Interpretive Data was last revised on 2018. Testing performed by: [facility], [address] [place] [address]., [address] Basophil pct 0.7 % [facility] Comment: Interpretive Data Percent cell count reference ranges are not reported, since discordance with absolute values may lead to misinterpretation of CBC data. Current Interpretive Data was last revised on 2018. Testing performed by: [facility], [address] [place] [address]., [address] Blood 11/11/2024 5:10 PM INTEGRATION SOLUTION ARCHITECT 11/11/2024 5:16 PM INTEGRATION SOLUTION ARCHITECT us Gloria Steen NP LAB BLOOD ORDERABLES Final Resul t [facility] [address] Department [place] [address] * (ABNORMAL) Pro B-type natriuretic peptide (11/11/2024 5:10 PM INTEGRATION SOLUTION ARCHITECT) NT-proBNP 5,728(H) <=300 pg/mL Comment: Interpretive Comments: [...] Last Revised Date: 2018. Testing performed by: [address] [address] Blood 11/11/2024 5:10 PM INTEGRATION SOLUTION ARCHITECT 11/11/2024 5:16 PM INTEGRATION SOLUTION ARCHITECT us Bravo Chino MD LAB BLOOD ORDERABLES F inal Result [facility] [address] Department [place] [address] * (ABNORMAL) CBC with auto differential (11/11/2024 5:10 PM INTEGRATION SOLUTION ARCHITECT) WBC 6.9 3.8 - 9.9 K/cumm Comment:Testing performed by : [address] [address] Hgb 9.3(L) 11.9 - 15.5 g/dL [facility] Comment:Testing performed by : [address] [address] Hct 28.3(L) 35.6 - 45.5 % [facility] Comment:Testing performed by : [address] [address] Plt 209 150 - 400 K/cumm [facility] Comment:Testing performed by : [address] [address] MPV 10.3 9.1 - 12.3 fL [facility] Comment:Testing performed by : [address] [address] RBC 2.84(L) 3.90 - 5.20 M/cumm [facility] Comment:Testing performed by : [address] [address] MCV 99.6(H) 81.3 - 96.4 fL [facility] Comment:Testing performed by : [address] [address] MCH 32.7 27.1 - 33.3 pg [facility] Comment:Testing performed by : [address] [address] MCHC 32.9 32.3 - 35.7 g/dL [facility] Comment:Testing performed by : [address] [address] RDW CV 17.0(H) 11.1 - 14.9 % [facility] Comment:Testing performed by : [address] [address] RDW SD 59.6(H) 35.7 - 48.1 fL [facility] Comment:Testing performed by : [address] [address] NRBC abs 0.00 0.00 - 0.01 K/cumm [facility] Comment:Testing performed by : [address] [address] Blood 11/11/2024 5:10 PM INTEGRATION SOLUTION ARCHITECT 11/11/2024 5:16 PM INTEGRATION SOLUTION ARCHITECT us Bravo Chino MD LAB BLOOD ORDERABLES F inal Result [facility] Department [place] [address] * (ABNORMAL) Comprehensive metabolic panel (11/11/2024 5:10 PM INTEGRATION SOLUTION ARCHITECT) Sodium 136 135 - 145 mmol/L Comment:Testing performed by : [address] [address] Potassium, pl 3.6 3.3 - 4.9 mmol/L [facility] Comment: Hemolyzed; Potassium value may be falsely elevated by as much as 1.0 mmol/L. Suggest redraw and reanalysis. Testing performed by: [address] [address] Chloride 93(L) 97 - 110 mmol/L [facility] Comment:Testing performed by : [address] [address] CO2 32 22 - 32 mmol/L [facility] Comment:Testing performed by : [address] [address] Anion gap 11 2 - 15 mmol/L [facility] Comment:Testing performed by : [address] [address] BUN 23 6 - 25 mg/dL [facility] Comment:Testing performed by : [address] [address] Creatinine 1.32(H) 0.60 - 1.10 mg/dL [facility] Comment:Testing performed by : [address] [address] Glucose 170 70 - 199 mg/dL [facility] Comment: Interpretive Data Fasting glucose >/= 126 [...] was last revised 2022. Testing performed by: [address] [address] Calcium 9.6 8.5 - 10.3 mg/dL [facility] Comment:Testing performed by : [address] [address] Bilirubin, total 1.9(H) 0.1 - 1.2 mg/dL [facility] Comment:Testing performed by : [address] [address] Protein, pl 6.3(L) 6.5 - 8.5 g/dL [facility] Comment:Testing performed by : [address] [address] Albumin 3.6 3.5 - 5.0 g/dL [facility] Comment:Testing performed by : [address] [address] Alk phos 337(H) 40 - 130 Units/L [facility] Comment:Testing performed by : [facility], [address] [place] [address]., [address] ALT 30 7 - 45 Units/L [facility] Comment:Testing performed by : [facility], [address] [place] [address]., [address] AST 73(H) 10 - 45 Units/L [facility] Comment: Hemolyzed; result may be falsely elevated Testing performed by: [facility], [address] [place] [address], [address] Blood 11/11/2024 5:10 PM INTEGRATION SOLUTION ARCHITECT 11/11/2024 5:16 PM INTEGRATION SOLUTION ARCHITECT Result [facility] Bravo Chino MD LAB BLOOD ORDERABLES F inal Result [facility] [address] Department [place] [address] * Cardiology Document Scan (11/01/2024 10:08 AM INTEGRATION SOLUTION ARCHITECT) Anatomical Region Laterality Modality Other Bridget Nicholson NP CV CARDIAC SERVICES PROCEDUR ES Final Result * Cardiology Document Scan (10/31/2024 9:21 AM INTEGRATION SOLUTION ARCHITECT) Anatomical Region Laterality Modality Other Jc Schaffer MD CV CARDIAC SERVICES PROCEDURES F inal Result * POCT lipid panel (11/15/2023 2:47 PM INTEGRATION SOLUTION ARCHITECT) Cholesterol, POC 146 mg/dL Comment:GLU = 90 HDL, POC 58 mg/dL Triglycerides, POC 87 mg/dL LDL Cholesterol POC 70 mg/dL Chol/HDL Ratio, POC 1.2 Non-HDL Cholesterol, POC 88 mg/dL Cholesterol Total, POC 146 mg/dL Capillary blood 11/15/2023 2 :47 PM INTEGRATION SOLUTION ARCHITECT Bridget Nicholson NP POINT OF CARE TEST ORDERABLE S Final Result from Last 3 Months or Most Recently Relevant to Health Maintenance Insurance MEDICARE [employer] SENIOR [employer]PP[employer]MENT Advance Directives For more information, please contact: [phone] Documents on File Type Date Recorded Patient Director Ship Expl anation ADVANCE DIRECTIVE 11/13/2024 3:42 PM Power of Hoisting Engineer [employer] * Full Code (Latest Code Status on File) Date Activated Date Inactivated Comments 11/12/2024 2:31 AM 11/20/2024 10:35 PM Care Teams Line Assigner Relationship Specialty Start Date End Date Ghanshyam Ruiz NP [address] [place] [address] PCP - General Nurse Practitioner 09/03/24 Augustus Birch MD [address] [place] [address] Internal Medicine 04/17/19
--- OUTSIDE RECORDS SUMMARY | 2025-01-16 11:22 | XMS_ITS | Clinical Summary ---
Author Organization [facility] Address [address] [place] [address] Care Team Providers Care Crime Scene Technician Name Role Phone Augustus Birch MD Unavailable Ghanshyam Ruiz NP Primary Care Provider [phone] Allergies Active Allergy Reactions Criticality Noted Date [...] mouth daily Active blood-glucose meter,continuous (Dexcom G6 Water Conservationist) misc Activ e thiamine (VITAMIN B1) 100 [...] 1 tablet (1 g total) by mouth early childhood services coordinator before breakfast 06/04/20 21 Active sodium zirconium [...] 11/29/2024 Assessment & Plan (11/29/2024 11:50 AM POST DOCTORAL FELLOW): Bilateral lower extremity chronic venous insufficiency with [...] Type Department Care Team Description 01/14/2025 Telephone [facility] Cardiology [address] [facility] [address] [place] [address] Carlitos Edmonds MD 12/26/2024 9:30 AM CDT Office Visit [facility] Orthopedics and Sports Medicine [address] [place] [address] [address] [place] [address] Samara Soto PA Closed fracture of medial portion of left tibial plateau with routine healing, subsequent encounter (Primary Dx) 12/26/2024 9:15 AM CDT - 12/26/2024 11:59 PM CDT Hospital Encounter [facility] MOB 1 DIAG IMG [address] [place] [address] Closed fracture of medial portion of left tibial plateau, initial encounter Discharge Disposition: Discharge to home or self care 12/25/2024 9:30 AM CDT Office Visit [facility] Cardiology [address] [place] [address] [address] [place] [phone] Bridget Nicholson NP Congestive heart failure, unspecified HF chronicity, unspecified heart failure type (HCC) (Primary Dx); Lymphedema of both lower extremities; Closed fracture of medial portion of left tibial plateau, initial encounter; Chronic venous insufficiency of lower extremity 11/27/2024 11:00 AM POST DOCTORAL FELLOW Office Visit [facility] Vascular at [address] [place] [phone] Lexie Rucker MD Chronic venous insufficiency of lower extremity (Primary Dx) 11/26/2024 2:00 PM POST DOCTORAL FELLOW Ancillary Procedure [facility] Vascular and Vein Surgery at [address] [place] [phone] Varicose veins of lower extremity with pain, bilateral; Other specified symptoms and signs involving the circulatory and respiratory systems 11/26/2024 1:00 PM POST DOCTORAL FELLOW Ancillary Procedure [facility] Vascular and Vein Surgery at [address] [place] [phone] Varicose veins of lower extremity with pain, bilateral 11/25/2024 Orders Only [facility] Cardiology [address] [place] [address] [address] [place] [phone] Bridget Nicholson NP 11/21/2024 Telephone [facility] Nephrology at [address] [place] [address] Bravo Mckenzie MD 11/11/2024 5:12 PM POST DOCTORAL FELLOW - 11/20/2024 6:14 PM POST DOCTORAL FELLOW Hospital Encounter [facility] 5 Med Surg [address] [place] [address] Bravo Chino MD Ogbuagu, Henry Maduabuchi, MD [...] [facility] 11/07/2024 Orders Only [facility] Cardiology [address] [place] [address] Jc Schaffer MD 10/30/2024 Telephone [facility] Cardiology [address] [place] [address] Carlitos Edmonds MD from Last [...] Tobacco: Never Tobacco Cessation:Counseling Given: Not Answered [facility] Utilities Answer Date Recorded In the past 12 months has e [employer] gas, oil, or water [employer] threatened to shut off services in your [...] often do you attend chur ch or rastafari services? More than 4 times per year 11/12/2024 Do you belong to any clubs o r organizations such as adventism groups, unions, fraternal or athletic groups, or [...] any time in the past 12 m [facility], were you homeless or living in a jail (including now)? No 11/12/2024 Personal Safety Answer [...] 36.4 C (97.5 F) 11/20/2024 4:02 AM POST DOCTORAL FELLOW Respiratory Rate 18 11/20/2024 8:44 AM POST DOCTORAL FELLOW Oxygen Saturation 99% 12/25/2024 9:24 AM CDT [...] Read Routine (OP Routine) 11/26/2024 2:32 PM POST DOCTORAL FELLOW Varicose veins of lower extremity with pain, bilateral Other specified symptoms and signs involving the circulatory and respiratory systems US VENOUS REFLUX BILATERAL Routine 11/26/2024 2:32 PM POST DOCTORAL FELLOW Varicose veins of lower extremity with pain, bilateral POCT GLUCOSE DEVICE Routine 11/20/2024 5 :57 PM POST DOCTORAL FELLOW POCT GLUCOSE DEVICE Routine 11/20/2024 1 2:28 PM POST DOCTORAL FELLOW POCT GLUCOSE DEVICE Routine 11/20/2024 8 :57 AM POST DOCTORAL FELLOW EGFR Routine 11/20/2024 5:33 AM POST DOCTORAL FELLOW DIFFERENTIAL AUTO Routine 11/20/2024 5:3 3 AM POST DOCTORAL FELLOW COMPREHENSIVE METABOLIC PANEL Routine 11/20/2024 5:33 AM POST DOCTORAL FELLOW CBC WITH AUTO DIFFERENTIAL Routine 11/20/2024 5:33 AM POST DOCTORAL FELLOW POCT GLUCOSE DEVICE Routine 11/19/2024 8 :57 PM POST DOCTORAL FELLOW POCT GLUCOSE DEVICE Routine 11/19/2024 5 :10 PM POST DOCTORAL FELLOW POCT GLUCOSE DEVICE Routine 11/19/2024 1 2:24 PM POST DOCTORAL FELLOW POCT GLUCOSE DEVICE Routine 11/19/2024 1 1:36 AM POST DOCTORAL FELLOW POCT GLUCOSE DEVICE Routine 11/19/2024 8 :22 AM POST DOCTORAL FELLOW EGFR Routine 11/19/2024 6:23 AM POST DOCTORAL FELLOW DIFFERENTIAL AUTO Routine 11/19/2024 6:2 3 AM POST DOCTORAL FELLOW AMMONIA Routine 11/19/2024 6:23 AM POST DOCTORAL FELLOW COMPREHENSIVE METABOLIC PANEL Routine 11/19/2024 6:23 AM POST DOCTORAL FELLOW CBC WITH AUTO DIFFERENTIAL Routine 11/19/2024 6:23 AM POST DOCTORAL FELLOW POCT GLUCOSE DEVICE Routine 11/18/2024 8 :[address] ABDOMEN PELVIS WO CONTRAST IP Routine 11/18/2024 8:34 PM POST DOCTORAL FELLOW POCT GLUCOSE DEVICE Routine 11/18/2024 5 :49 PM POST DOCTORAL FELLOW POCT GLUCOSE DEVICE Routine 11/18/2024 1 2:43 PM POST DOCTORAL FELLOW POCT GLUCOSE DEVICE Routine 11/18/2024 7 :55 AM POST DOCTORAL FELLOW DIFFERENTIAL AUTO Routine 11/18/2024 6:3 5 AM POST DOCTORAL FELLOW CBC WITH AUTO DIFFERENTIAL Routine 11/18/2024 6:35 AM POST DOCTORAL FELLOW EGFR Routine 11/18/2024 5:52 AM POST DOCTORAL FELLOW FOLATE Routine 11/18/2024 5:52 AM POST DOCTORAL FELLOW VITAMIN B12 Routine 11/18/2024 5:52 AM POST DOCTORAL FELLOW COMPREHENSIVE METABOLIC PANEL Routine 11/18/2024 5:52 AM POST DOCTORAL FELLOW POCT GLUCOSE DEVICE Routine 11/17/2024 8 :52 PM POST DOCTORAL FELLOW POCT GLUCOSE DEVICE Routine 11/17/2024 6 :05 PM POST DOCTORAL FELLOW POCT GLUCOSE DEVICE Routine 11/17/2024 1 :08 PM POST DOCTORAL FELLOW POCT GLUCOSE DEVICE Routine 11/17/2024 9 :20 AM POST DOCTORAL FELLOW EGFR Routine 11/17/2024 7:01 AM POST DOCTORAL FELLOW DIFFERENTIAL AUTO Routine 11/17/2024 7:0 1 AM POST DOCTORAL FELLOW COMPREHENSIVE METABOLIC PANEL Routine 11/17/2024 7:01 AM POST DOCTORAL FELLOW CBC WITH AUTO DIFFERENTIAL Routine 11/17/2024 7:01 AM POST DOCTORAL FELLOW POCT GLUCOSE DEVICE Routine 11/16/2024 7 :44 PM POST DOCTORAL FELLOW POCT GLUCOSE DEVICE Routine 11/16/2024 6 :33 PM POST DOCTORAL FELLOW POCT GLUCOSE DEVICE Routine 11/16/2024 1 1:54 AM POST DOCTORAL FELLOW HEMOGLOBIN A1C Routine 11/16/2024 9:56 AM POST DOCTORAL FELLOW EGFR Routine 11/16/2024 9:56 AM POST DOCTORAL FELLOW DIFFERENTIAL AUTO Routine 11/16/2024 9:5 6 AM POST DOCTORAL FELLOW COMPREHENSIVE METABOLIC PANEL Routine 11/16/2024 9:56 AM POST DOCTORAL FELLOW CBC WITH AUTO DIFFERENTIAL Routine 11/16/2024 9:56 AM POST DOCTORAL FELLOW POCT GLUCOSE DEVICE Routine 11/16/2024 8 :53 AM POST DOCTORAL FELLOW POCT GLUCOSE DEVICE Routine 11/16/2024 1 2:30 AM POST DOCTORAL FELLOW POCT GLUCOSE DEVICE Routine 11/15/2024 8 :35 PM POST DOCTORAL FELLOW POCT GLUCOSE DEVICE Routine 11/15/2024 5 :29 PM POST DOCTORAL FELLOW POCT GLUCOSE DEVICE Routine 11/15/2024 1 :28 PM POST DOCTORAL FELLOW POCT GLUCOSE DEVICE Routine 11/15/2024 8 :56 AM POST DOCTORAL FELLOW MAGNESIUM Routine 11/15/2024 4:35 AM POST DOCTORAL FELLOW EGFR Routine 11/15/2024 4:35 AM POST DOCTORAL FELLOW DIFFERENTIAL AUTO Routine 11/15/2024 4:3 5 AM POST DOCTORAL FELLOW PROTIME-INR Routine 11/15/2024 4:35 AM POST DOCTORAL FELLOW COMPREHENSIVE METABOLIC PANEL Routine 11/15/2024 4:35 AM POST DOCTORAL FELLOW CBC WITH AUTO DIFFERENTIAL Routine 11/15/2024 4:35 AM POST DOCTORAL FELLOW POCT GLUCOSE DEVICE Routine 11/14/2024 9 :28 PM POST DOCTORAL FELLOW POCT GLUCOSE DEVICE Routine 11/14/2024 5 :48 PM POST DOCTORAL FELLOW SODIUM, URINE, RANDOM Routine 11/14/2024 3:29 PM POST DOCTORAL FELLOW URINALYSIS AND REFLEX TO MICROSCOPIC AND CULTURE STAT 11/14/2024 3:28 PM POST DOCTORAL FELLOW AMMONIA Add-On 11/14/2024 2:16 PM POST DOCTORAL FELLOW POCT GLUCOSE DEVICE Routine 11/14/2024 1 1:21 AM POST DOCTORAL FELLOW POCT GLUCOSE DEVICE Routine 11/14/2024 8:11 AM POST DOCTORAL FELLOW EGFR Routine 11/14/2024 5:03 AM POST DOCTORAL FELLOW DIFFERENTIAL AUTO Routine 11/14/2024 5:0 3 AM POST DOCTORAL FELLOW COMPREHENSIVE METABOLIC PANEL Routine 11/14/2024 5:03 AM POST DOCTORAL FELLOW CBC WITH AUTO DIFFERENTIAL Routine 11/14/2024 5:03 AM POST DOCTORAL FELLOW POCT GLUCOSE DEVICE Routine 11/14/2024 4 :41 AM POST DOCTORAL FELLOW POCT GLUCOSE DEVICE Routine 11/13/2024 7 :59 PM POST DOCTORAL FELLOW POCT GLUCOSE DEVICE Routine 11/13/2024 5 :[address] KNEE LEFT WO CONTRAST IP Routine 11/13/2024 4:52 PM POST DOCTORAL FELLOW US CHEST IP Routine 11/13/2024 2:21 PM POST DOCTORAL FELLOW POCT GLUCOSE DEVICE Routine 11/13/2024 2 :13 PM POST DOCTORAL FELLOW FLUORO GUIDED ASPIRATION KNEE LEFT IP Routine 11/13/2024 1:30 PM POST DOCTORAL FELLOW EGFR Routine 11/13/2024 9:02 AM POST DOCTORAL FELLOW DIFFERENTIAL AUTO Routine 11/13/2024 9:0 2 AM POST DOCTORAL FELLOW COMPREHENSIVE METABOLIC PANEL Routine 11/13/2024 9:02 AM POST DOCTORAL FELLOW CBC WITH AUTO DIFFERENTIAL Routine 11/13/2024 9:02 AM POST DOCTORAL FELLOW MAGNESIUM Routine 11/13/2024 9:02 AM POST DOCTORAL FELLOW POCT GLUCOSE DEVICE Routine 11/13/2024 8 :00 AM POST DOCTORAL FELLOW STREP PNEUMONIAE AG, URINE Routine 11/13/2024 12:28 AM POST DOCTORAL FELLOW LEGIONELLA ANTIGEN, URINE Routine 11/13/2024 12:28 AM POST DOCTORAL FELLOW POCT GLUCOSE DEVICE Routine 11/12/2024 1 0:04 PM POST DOCTORAL FELLOW TRANSTHORACIC ECHO (TTE) COMPLETE W DOPPLER/CF WO CONTRAST Routine 11/12/2024 4:14 PM POST DOCTORAL FELLOW XR KNEE LEFT 1 OR 2 VIEWS IP Routine 11/12/2024 2:18 PM POST DOCTORAL FELLOW POCT GLUCOSE DEVICE Routine 11/12/2024 1 2:11 PM POST DOCTORAL FELLOW POCT GLUCOSE DEVICE Routine 11/12/2024 1 0:02 AM POST DOCTORAL FELLOW EGFR Routine 11/12/2024 8:29 AM POST DOCTORAL FELLOW DIFFERENTIAL AUTO Routine 11/12/2024 8:2 9 AM POST DOCTORAL FELLOW CBC WITH AUTO DIFFERENTIAL Routine 11/12/2024 8:29 AM POST DOCTORAL FELLOW COMPREHENSIVE METABOLIC PANEL Routine 11/12/2024 8:29 AM POST DOCTORAL FELLOW POCT GLUCOSE DEVICE Routine 11/12/2024 3 :01 AM POST DOCTORAL FELLOW BLOOD CULTURE STAT 11/11/2024 9:45 PM POST DOCTORAL FELLOW BLOOD CULTURE STAT 11/11/2024 9:[address] CHEST ABDOMEN PELVIS WO CONTRAST ED 11/11/2024 8:07 PM POST DOCTORAL FELLOW XR CHEST 1 VIEW ED 11/11/2024 5:30 PM POST DOCTORAL FELLOW EGFR STAT 11/11/2024 5:10 PM POST DOCTORAL FELLOW DIFFERENTIAL AUTO STAT 11/11/2024 5:1 0 PM POST DOCTORAL FELLOW PRO B-TYPE NATRIURETIC PEPTIDE STAT 11/11/2024 5:10 PM POST DOCTORAL FELLOW SEPSIS LACTATE WITH REFLEX Routine 11/11/2024 5:10 PM POST DOCTORAL FELLOW COMPREHENSIVE METABOLIC PANEL STAT 11/11/2024 5:10 PM POST DOCTORAL FELLOW CBC WITH AUTO DIFFERENTIAL STAT 11/11/2024 5:10 PM POST DOCTORAL FELLOW CARDIOLOGY DOCUMENT SCAN Routine 11/01/2024 10:08 AM POST DOCTORAL FELLOW CARDIOLOGY DOCUMENT SCAN Routine 10/31/2024 9:21 AM POST DOCTORAL FELLOW POCT LIPID PANEL Routine 11/15/2023 2:47 PM POST DOCTORAL FELLOW Lipid screening from Last 3 Months or [...] Stewart Greene M.D. RB: BECKI Report ID: [id number] Reading Location: [id number] Procedure Note Stewart Greene MD - 12/30/2024 [...] Stewart Greene M.D. RB: BECKI Report ID: [id number] Reading Location: [id number] us Samara MEDEIROS IMG XR PROCEDURES Final Result * US SONIA (11/26/2024 2:32 PM POST DOCTORAL FELLOW) Anatomical Region Laterality Modality Vascular N/A Ultrasound 11/26/2024 12:3 5 PM POST DOCTORAL FELLOW Narrative 11/27/2024 9:12 AM POST DOCTORAL FELLOW Vascular & Vein Surgery [facility] [place] [address] Lower Extremity Arterial Doppler Report Patient Name: LOU ISLAS B : 1955 Study Date: 11/26/2024 12:35:00 PM Gender: F Mold Repair Technician: [place],Maira RVT Location: VVSE Ref Provider: LEXIE RUCKER Quality: Adequate Order Provider: LEXIE RUCKER PROCEDURES: Arterial Report: Ankle - Brachial Index Doppler exam. INDICATIONS: BLE wounds with varicose veins. HISTORY: Hypertension. Hyperlipidemia. Diabetic. CHF. Former smoker. COMPARISONS: No previous exams. MEASUREMENTS: Right Value Left Value Rt Brachial Pressure 104 mmHg Lt Brachial Pressure 111 mmHg Rt MATHEMATICS TEACHER Pressure >220 mmHg Lt MATHEMATICS TEACHER Pressure >220 mmHg Rt DPA Pressure 196 [...] By: Lexie Rucker MD 11/27/2024 8:47:23 AM POST DOCTORAL FELLOW Procedure Note Lexie Rucker MD - 11/27/2024 Vascular & Vein Surgery [address] [place] [address] Lower Extremity Arterial Doppler Report Patient Name: LOU ISLAS B : 1955 Study Date: 11/26/2024 12:35:00 PM Gender: F Mold Repair Technician: Maira Gonzalez RVT Location: VVSE Ref Provider: LEXIE RUCKER Quality: Adequate Order Provider: LEXIE RUCKER PROCEDURES: Arterial Report: Ankle - Brachial Index Doppler exam. INDICATIONS: BLE wounds with varicose veins. HISTORY: Hypertension. Hyperlipidemia. Diabetic. CHF. Former smoker. COMPARISONS: No previous exams. MEASUREMENTS: Right Value Left Value Rt Brachial Pressure 104 mmHg Lt Brachial Pressure 111 mmHg Rt MATHEMATICS TEACHER Pressure >220 mmHg Lt MATHEMATICS TEACHER Pressure >220 mmHg Rt DPA Pressure 196 [...] By: Lexie Rucker MD 11/27/2024 8:47:23 AM POST DOCTORAL FELLOW us Lexie Rucker MD IMG US PROCEDURES Final Result * US Venous Reflux Bilateral (11/26/2024 2:32 PM POST DOCTORAL FELLOW) Anatomical Region Laterality Modality Vascular Bilateral Ultrasound 11/26/2024 12:5 9 PM POST DOCTORAL FELLOW Narrative 11/27/2024 9:12 AM POST DOCTORAL FELLOW Vascular & Vein Surgery [address] [place] [address] Lower Extremity Venous Reflux Duplex Report Patient Name: LOU ISLAS B : 1955 (69y 7m) Study Date: 11/26/2024 12:59:40 PM Gender: F Mold Repair Technician: Location: VVSE Ref Provider: LEXIE RUCKER Quality: [...] in sapheno-femoral junction and small saphenous vein. Consumer Advocate vein noted at distal posterior medial calf, [...] By: Lexie Rucker MD 11/27/2024 8:47:00 AM POST DOCTORAL FELLOW Procedure Note Lexie Rucker MD - 11/27/2024 Vascular & Vein Surgery [facility] [place] [address] Lower Extremity Venous Reflux Duplex Report Patient Name: LOU ISLAS B : 1955 (69y 7m) Study Date: 11/26/2024 12:59:40 PM Gender: F Mold Repair Technician: NIEVES Location: VVSE Ref Provider: LEXIE RUCKER [...] noted in sapheno-femoral junction and small saphenous vein.Consumer Advocate vein noted at distal posterior medial calf, [...] By: Lexie Rucker MD 11/27/2024 8:47:00 AM POST DOCTORAL FELLOW us Lexie Rucker MD IMG US PROCEDURES Final Result * POCT glucose (11/20/2024 5:57 PM POST DOCTORAL FELLOW) Glucose, POC 175 70 - 199 mg/dL Comment:Testing performed by : [address] [address] Blood 11/20/2024 5:57 PM POST DOCTORAL FELLOW 11/20/2024 5:57 PM POST DOCTORAL FELLOW us Joe Herron MD LAB POCT ORDERABLES - DEVICE Final Result [facility] [address] [facility] Department [place] [address] * POCT glucose (11/20/2024 12:28 PM POST DOCTORAL FELLOW) Glucose, POC 186 70 - 199 mg/dL Comment:Testing performed by : [address] [address] Glucose comment 1 Use This Result DAYANA CARPIO Comment:Testing performed by : [address] [address] Glucose comment 2 RN/MD Notified DAYANA CARPIO Comment:Testing performed by : [address] [address] Blood 11/20/2024 12:2 8 PM POST DOCTORAL FELLOW 11/20/2024 12:28 PM POST DOCTORAL FELLOW Joe Herron MD LAB POCT ORDERABLES - DEVICE Final Result Performing Organization Address [facility] de Phone Number DAYANA [address] [address] * POCT glucose (11/20/2024 8:57 AM POST DOCTORAL FELLOW) [facility] Glucose, POC 157 70 - 199 mg/dL Comment:Testing performed by : [address], [address] Glucose comment 1 Use This Result DAYANA Comment:Testing performed by : [address], [address] Glucose comment 2 RN/MD Notified DAYANA Comment:Testing performed by : [address] [address] Blood 11/20/2024 8:57 AM POST DOCTORAL FELLOW 11/20/2024 8:57 AM POST DOCTORAL FELLOW Joe Herron MD LAB POCT ORDERABLES - DEVICE Final Result Performing Organization Address [facility] de Phone Number MARY ALICE[address] [address] * (ABNORMAL) eGFR (11/20/2024 5:33 AM POST DOCTORAL FELLOW) [facility] eGFR 24(L) >=60 mL/min/1. 73 m2 [...] was last reviewed 2021. Testing performed by: [address] [address] Blood 11/20/2024 5:33 AM POST DOCTORAL FELLOW 11/20/2024 5:56 AM POST DOCTORAL FELLOW us Ivan Vargas MD LAB BLOOD ORDERABLES Final Re sult MARY ALICENIKOS [address] [facility] Department [place] [address] * (ABNORMAL) Differential, auto (11/20/2024 5:33 AM POST DOCTORAL FELLOW) Neutrophil abs 3.7 1.5 - 6.5 K/cumm Comment:Testing performed by : [address] [address] Imm gran abs 0.1 0.0 - 0.1 K/cumm DAYANA Comment:Testing performed by : [address] [address] Lymphocyte abs 1.1 0.8 - 3.3 K/cumm DAYANA Comment:Testing performed by : [address] [address] Monocyte abs 1.0(H) 0.2 - 0.8 K/cumm DAYANA Comment:Testing performed by : [address] [address] Eosinophil abs 0.8(H) 0.0 - 0.5 K/cumm DAYANA Comment:Testing performed by : [address] [address] Basophil abs 0.1 0.0 - 0.1 K/cumm DAYANA Comment:Testing performed by : [address] [address] Neutrophil pct 55.1 % [facility] Comment: Interpretive Data Percent cell count reference ranges are not reported, since discordance with absolute values may lead to misinterpretation of CBC data. Current Interpretive Data was last revised on 2018. Testing performed by: [facility], [address] [place] [address]., [address] Imm gran pct 1.2 % [facility] Comment: Interpretive Data Percent cell count reference ranges are not reported, since discordance with absolute values may lead to misinterpretation of CBC data. Current Interpretive Data was last revised on 2018. Testing performed by: [address] [address] Lymphocyte pct 16.2 % [facility] Comment: Interpretive Data Percent cell count reference ranges are not reported, since discordance with absolute values may lead to misinterpretation of CBC data. Current Interpretive Data was last revised on 2018. Testing performed by: [address] [address] Monocyte pct 14.3 % [facility] Comment: Interpretive Data Percent cell count reference ranges are not reported, since discordance with absolute values may lead to misinterpretation of CBC data. Current Interpretive Data was last revised on 2018. Testing performed by: [address] [address] Eosinophil pct 12.3 % [facility] Comment: Interpretive Data Percent cell count reference ranges are not reported, since discordance with absolute values may lead to misinterpretation of CBC data. Current Interpretive Data was last revised on 2018. Testing performed by: [address] [address] Basophil pct 0.9 % [facility] Comment: Interpretive Data Percent cell count reference ranges are not reported, since discordance with absolute values may lead to misinterpretation of CBC data. Current Interpretive Data was last revised on 2018. Testing performed by: [address] [address] Blood 11/20/2024 5:33 AM POST DOCTORAL FELLOW 11/20/2024 5:56 AM POST DOCTORAL FELLOW us Ivan Vargas MD LAB BLOOD ORDERABLES [facility] [address] [facility] Department of Laboratories [place], [place] [id number] * (ABNORMAL) CBC with auto differential (11/20/2024 5:33 AM POST DOCTORAL FELLOW) WBC 6.7 3.8 - 9.9 K/cumm Comment:Testing performed by : [address] [address] Hgb 9.2(L) 11.9 - 15.5 g/dL DAYANA Comment:Testing performed by : [address] [address] Hct 29.0(L) 35.6 - 45.5 % DAYANA Comment:Testing performed by : [address], [address] Plt 275 150 - 400 K/cumm DAYANA Comment:Testing performed by : [address], [address] MPV 11.0 9.1 - 12.3 fL DAYANA Comment:Testing performed by : [address] [address] RBC 2.80(L) 3.90 - 5.20 M/cumm DAYANA Comment:Testing performed by : [address] [address] MCV 103.6(H) 81.3 - 96.4 fL DAYANA Comment:Testing performed by : [address] [address] MCH 32.9 27.1 - 33.3 pg DAYANA Comment:Testing performed by : [address] [address] MCHC 31.7(L) 32.3 - 35.7 g/dL DAYANA Comment:Testing performed by : [address], [address] RDW CV 16.5(H) 11.1 - 14.9 % DAYANA Comment:Testing performed by : [address] [address] RDW SD 62.3(H) 35.7 - 48.1 fL DAYANA CARPIO Comment:Testing performed by : [address] [address] NRBC abs 0.00 0.00 - 0.01 K/cumm DAYANA CARPIO Comment:Testing performed by : [address] [address] Blood 11/20/2024 5:33 AM POST DOCTORAL FELLOW 11/20/2024 5:56 AM POST DOCTORAL FELLOW us Ivan Vargas MD LAB BLOOD ORDERABLES Final Re sult DAYANA [address] [facility] Department [place] [address] * (ABNORMAL) Comprehensive metabolic panel (11/20/2024 5:33 AM POST DOCTORAL FELLOW) Sodium 134(L) 135 - 145 mmol/L Comment:Testing performed by : [address] [address] Potassium, pl 3.8 3.3 - 4.9 mmol/L DAYANA CARPIO Comment:Testing performed by : [address] [address] Chloride 91(L) 97 - 110 mmol/L DAYANA CARPIO Comment:Testing performed by : [address] [address] CO2 26 22 - 32 mmol/L DAYANA CARPIO Comment:Testing performed by : [address] [address] Anion gap 17(H) 2 - 15 mmol/L DAYANA CARPIO Comment:Testing performed by : [address] [address] BUN 51(H) 6 - 25 mg/dL DAYANA CARPIO Comment:Testing performed by : [address] [address] Creatinine 2.20(H) 0.60 - 1.10 mg/dL DAYANA CARPIO Comment:Testing performed by : [address] [address] Glucose 149 70 - 199 mg/dL DAYANA [...] was last revised 2022. Testing performed by: [address] [address] Calcium 10.3 8.5 - 10.3 mg/dL DAYANA Comment:Testing performed by : [address] [address] Bilirubin, total 1.3(H) 0.1 - 1.2 mg/dL DAYANA Comment:Testing performed by : [address] [address] Protein, pl 6.6 6.5 - 8.5 g/dL DAYANA Comment:Testing performed by : [address] [address] Albumin 3.8 3.5 - 5.0 g/dL DAYANA Comment:Testing performed by : [address] [address] Alk phos 391(H) 40 - 130 Units/L DAYANA Comment:Testing performed by : [address] [address] ALT 15 7 - 45 Units/L DAYANA Comment:Testing performed by : [address] [address] AST 29 10 - 45 Units/L DAYANA Comment:Testing performed by : [address] [address] Blood 11/20/2024 5:33 AM POST DOCTORAL FELLOW 11/20/2024 5:56 AM POST DOCTORAL FELLOW us Ivan Vargas MD LAB BLOOD ORDERABLES Final Re sult Performing Organization Address [facility] Co de Phone Number MARY ALICE[address] [place] [address] * (ABNORMAL) POCT glucose (11/19/2024 8:57 PM POST DOCTORAL FELLOW) Glucose, POC 254(H) 70 - 199 mg/dL Comment:Testing performed by : [address] [address] Glucose comment 1 Use This Result DAYANA Comment:Testing performed by : [address] [address] Blood 11/19/2024 8:57 PM POST DOCTORAL FELLOW 11/19/2024 8:57 PM POST DOCTORAL FELLOW us Joe Herron MD LAB POCT ORDERABLES - DEVICE Final Result Performing Organization Address [facility] de Phone Number [address] [place] [address] * (ABNORMAL) POCT glucose (11/19/2024 5:10 PM POST DOCTORAL FELLOW) Glucose, POC 225(H) 70 - 199 mg/dL Comment:Testing performed by : [address] [address] Blood 11/19/2024 5:10 PM POST DOCTORAL FELLOW 11/19/2024 5:10 PM POST DOCTORAL FELLOW us Joe Herron MD LAB POCT ORDERABLES - DEVICE Final Result Performing Organization Address [facility] Co de Phone Number [address] [place] [address] * POCT glucose (11/19/2024 12:24 PM POST DOCTORAL FELLOW) Glucose, POC 191 70 - 199 mg/dL Comment:Testing performed by : [address] [address] Blood 11/19/2024 12:2 4 PM POST DOCTORAL FELLOW 11/19/2024 12:24 PM POST DOCTORAL FELLOW Joe Herron MD LAB POCT ORDERABLES - DEVICE Final Result Performing Organization Address [facility] Co de Phone Number DAYANA [address] [address] * POCT glucose (11/19/2024 11:36 AM POST DOCTORAL FELLOW) Glucose, POC 181 70 - 199 mg/dL Comment:Testing performed by : [address] [address] Blood 11/19/2024 11:3 6 AM POST DOCTORAL FELLOW 11/19/2024 11:36 AM POST DOCTORAL FELLOW Joe Herron MD LAB POCT ORDERABLES - DEVICE Final Result Performing Organization Address [facility] de Phone Number MARY ALICE[address] [address] * POCT glucose (11/19/2024 8:22 AM POST DOCTORAL FELLOW) Glucose, POC 163 70 - 199 mg/dL Comment:Testing performed by : [address] [address] Glucose comment 1 Use This Result DAYANA Comment:Testing performed by : [address] [address] Blood 11/19/2024 8:22 AM POST DOCTORAL FELLOW 11/19/2024 8:22 AM POST DOCTORAL FELLOW Joe Herron MD LAB POCT ORDERABLES - DEVICE Final Result Performing Organization Address [facility] Co de Phone Number DAYANA [address] [address] * (ABNORMAL) eGFR (11/19/2024 6:23 AM POST DOCTORAL FELLOW) eGFR 28(L) >=60 mL/min/1. 73 m2 Comment: [...] was last reviewed 2021. Testing performed by: [address] [address] Blood 11/19/2024 6:23 AM POST DOCTORAL FELLOW 11/19/2024 6:31 AM POST DOCTORAL FELLOW us Ivan Vargas MD LAB BLOOD ORDERABLES Final Re sult DAYANA CARPIO [address] [facility] Department of Laboratories [place], [place] [id number] * (ABNORMAL) Differential, auto (11/19/2024 6:23 AM POST DOCTORAL FELLOW) Pathologist [facility] Neutrophil abs 3.7 1.5 - 6.5 K/cumm Comment:Testing performed by : [address] [address] Imm gran abs 0.1 0.0 - 0.1 K/cumm DAYANA CARPIO Comment:Testing performed by : [address] [address] Lymphocyte abs 1.1 0.8 - 3.3 K/cumm DAYANA Comment:Testing performed by : [address] [address] Monocyte abs 1.0(H) 0.2 - 0.8 K/cumm [facility] Comment:Testing performed by : [address] [address] Eosinophil abs 1.1(H) 0.0 - 0.5 K/cumm [facility] Comment:Testing performed by : [address] [address] Basophil abs 0.1 0.0 - 0.1 K/cumm [facility] Comment:Testing performed by : [address] [address] Neutrophil pct 52.7 % [facility] Comment: Interpretive Data Percent cell count reference ranges are not reported, since discordance with absolute values may lead to misinterpretation of CBC data. Current Interpretive Data was last revised on 2018. Testing performed by: [address] [address] Imm gran pct 1.1 % [facility] Comment: Interpretive Data Percent cell count reference ranges are not reported, since discordance with absolute values may lead to misinterpretation of CBC data. Current Interpretive Data was last revised on 2018. Testing performed by: [address] [address] Lymphocyte pct 15.8 % [facility] Comment: Interpretive Data Percent cell count reference ranges are not reported, since discordance with absolute values may lead to misinterpretation of CBC data. Current Interpretive Data was last revised on 2018. Testing performed by: [address] [address] Monocyte pct 14.2 % [facility] Comment: Interpretive Data Percent cell count reference ranges are not reported, since discordance with absolute values may lead to misinterpretation of CBC data. Current Interpretive Data was last revised on 2018. Testing performed by: [address] [address] Eosinophil pct 15.2 % [facility] Comment: Interpretive Data Percent cell count reference ranges are not reported, since discordance with absolute values may lead to misinterpretation of CBC data. Current Interpretive Data was last revised on 2018. Testing performed by: [address] [place]., [address] Basophil pct 1.0 % DAYANA Comment: Interpretive Data Percent cell count reference ranges are not reported, since discordance with absolute values may lead to misinterpretation of CBC data. Current Interpretive Data was last revised on 2018. Testing performed by: [address] [address] Blood 11/19/2024 6:23 AM POST DOCTORAL FELLOW 11/19/2024 6:31 AM POST DOCTORAL FELLOW us Ivan Vargas MD LAB BLOOD ORDERABLES Final Re sult DAYANA [address] [facility] Department [place] [address] * (ABNORMAL) CBC with auto differential (11/19/2024 6:23 AM POST DOCTORAL FELLOW) WBC 7.0 3.8 - 9.9 K/cumm Comment:Testing performed by : [address] [address] Hgb 8.9(L) 11.9 - 15.5 g/dL DAYANA Comment:Testing performed by : [address] [address] Hct 28.1(L) 35.6 - 45.5 % DAYANA Comment:Testing performed by : [address] [address] Plt 268 150 - 400 K/cumm DAYANA Comment:Testing performed by : [address] [address] MPV 11.2 9.1 - 12.3 fL DAYANA Comment:Testing performed by : [address] [address] RBC 2.75(L) 3.90 - 5.20 M/cumm DAYANA Comment:Testing performed by : [address] [address] MCV 102.2(H) 81.3 - 96.4 fL DAYANA Comment:Testing performed by : [address] [address] MCH 32.4 27.1 - 33.3 pg DAYANA CARPIO Comment:Testing performed by : [address] [address] MCHC 31.7(L) 32.3 - 35.7 g/dL DAYANA CARPIO Comment:Testing performed by : [address] [address] RDW CV 16.5(H) 11.1 - 14.9 % DAYANA CARPIO Comment:Testing performed by : [address], [address] RDW SD 60.4(H) 35.7 - 48.1 fL DAYANA Comment:Testing performed by : [address] [address] NRBC abs 0.00 0.00 - 0.01 K/cumm DAYANA Comment:Testing performed by : [address], [address] Blood 11/19/2024 6:23 AM POST DOCTORAL FELLOW 11/19/2024 6:31 AM POST DOCTORAL FELLOW Ivan Vargas MD LAB BLOOD ORDERABLES Final Re sult Performing Organization Address [facility] Co de Phone Number DAYANA [address] [facility] Department [place] [address] * Ammonia (11/19/2024 6:23 AM POST DOCTORAL FELLOW) Ammonia 24 <=50 mcmol/L Comment: Please note on 02/21/2024 the unit of measure changed from mcg/dL to mcmol/L. Current Interpretive Data was last revised on 2024. Testing performed by: [address] [address] Blood 11/19/2024 6:23 AM POST DOCTORAL FELLOW 11/19/2024 6:27 AM POST DOCTORAL FELLOW Ivan Vargas MD LAB BLOOD ORDERABLES Final Re sult Performing Organization Address [facility] Co de Phone Number DAYANA [address] [facility] Department [place] [address] * (ABNORMAL) Comprehensive metabolic panel (11/19/2024 6:23 AM POST DOCTORAL FELLOW) Sodium 133(L) 135 - 145 mmol/L Comment:Testing performed by : [address] [address] Potassium, pl 3.6 3.3 - 4.9 mmol/L DAYANA Comment:Testing performed by : [address] [address] Chloride 92(L) 97 - 110 mmol/L DAYANA Comment:Testing performed by : [address] [address] CO2 27 22 - 32 mmol/L DAYANA Comment:Testing performed by : [address] [address] Anion gap 14 2 - 15 mmol/L DAYANA Comment:Testing performed by : [address] [address] BUN 46(H) 6 - 25 mg/dL DAYANA Comment:Testing performed by : [address] [address] Creatinine 1.90(H) 0.60 - 1.10 mg/dL DAYANA Comment:Testing performed by : [address] [address] Glucose 151 70 - 199 mg/dL DAYANA [...] was last revised 2022. Testing performed by: [address] [address] Calcium 10.2 8.5 - 10.3 mg/dL DAYANA Comment:Testing performed by : [address] [address] Bilirubin, total 1.4(H) 0.1 - 1.2 mg/dL DAYANA Comment:Testing performed by : [address], [place]., [address] Protein, pl 6.3(L) 6.5 - 8.5 g/dL DAYANA Comment:Testing performed by : [address], [place]., [address] Albumin 3.6 3.5 - 5.0 g/dL DAYANA Comment:Testing performed by : [address] [address] Alk phos 390(H) 40 - 130 Units/L DAYANA Comment:Testing performed by : [address] [address] ALT 17 7 - 45 Units/L DAYANA Comment:Testing performed by : [address] [address] AST 31 10 - 45 Units/L DAYANA Comment:Testing performed by : [address] [address] Blood 11/19/2024 6:23 AM POST DOCTORAL FELLOW 11/19/2024 6:31 AM POST DOCTORAL FELLOW Ivan Vargas MD LAB BLOOD ORDERABLES Final Re sult [facility] [address] [facility] Department [place] [address] * (ABNORMAL) POCT glucose (11/18/2024 8:46 PM POST DOCTORAL FELLOW) [facility] Glucose, POC 234(H) 70 - 199 mg/dL Comment:Testing performed by : [address] [address] Glucose comment 1 Use This Result DAYANA Comment:Testing performed by : [address] [address] Glucose comment 2 RN/MD Notified CERNER MH Comment:Testing performed by : [facility], [address] [place] [address], [place]., [address] Blood 11/18/2024 8:46 PM POST DOCTORAL FELLOW 11/18/2024 8:46 PM POST DOCTORAL FELLOW us Ivan Vargas MD LAB POCT ORDERABLES - DEVICE Final Result DAYANA CARPIO [address] [facility] Department [place] [address] * CT Abdomen Pelvis WO Contrast (11/18/2024 8:34 PM POST DOCTORAL FELLOW) Anatomical Region Laterality Modality Body N/A Computed Tomogra phy 11/18/2024 9:07 PM POST DOCTORAL FELLOW Narrative 11/18/2024 9:19 PM POST DOCTORAL FELLOW EXAM DESCRIPTION: CT ABDOMEN PELVIS WO CONTRAST [...] Pedro Alexis M.D. KT: KIM Report ID: [id number] Reading Location: [id number] Procedure Note Pedro Alexis MD - 11/18/2024 [...] Pedro Alexis M.D. KT: KIM Report ID: [id number] Reading Location: [place] [address] Ivan Vargas MD IMG CT PROCEDURES Final Resul t * (ABNORMAL) POCT glucose (11/18/2024 5:49 PM POST DOCTORAL FELLOW) [facility] Glucose, POC 216(H) 70 - 199 mg/dL Comment:Testing performed by : [address] [address] Glucose comment 1 RN/MD Notified DAYANA CARPIO Comment:Testing performed by : [address] [address] Glucose comment 2 Use This Result DAYANA CARPIO Comment:Testing performed by : [address] [address] Blood 11/18/2024 5:49 PM POST DOCTORAL FELLOW 11/18/2024 5:49 PM POST DOCTORAL FELLOW us Ivan Vargas MD LAB POCT ORDERABLES - DEVICE Final Result Performing Organization Address [facility] Co de Phone Number DAYANA [facility] [place] [address] * (ABNORMAL) POCT glucose (11/18/2024 12:43 PM POST DOCTORAL FELLOW) Glucose, POC 232(H) 70 - 199 mg/dL Comment:Testing performed by : [address] [address] Glucose comment 1 Use This Result DAYANA Comment:Testing performed by : [address] [address] Blood 11/18/2024 12:4 3 PM POST DOCTORAL FELLOW 11/18/2024 12:43 PM POST DOCTORAL FELLOW Result [facility] Ivan Vargas MD LAB POCT ORDERABLES - DEVICE Final Result Performing Organization Address [facility] de Phone Number DAYANA [address] [address] * POCT glucose (11/18/2024 7:55 AM POST DOCTORAL FELLOW) Glucose, POC 145 70 - 199 mg/dL Comment:Testing performed by : [address] [address] Glucose comment 1 Use This Result DAYANA Comment:Testing performed by : [address] [address] Glucose comment 2 RN/MD Notified DAYANA Comment:Testing performed by : [address] [address] Blood 11/18/2024 7:55 AM POST DOCTORAL FELLOW 11/18/2024 7:55 AM POST DOCTORAL FELLOW Result [facility] Ivan Vargas MD LAB POCT ORDERABLES - DEVICE Final Result Performing Organization Address [facility] Co de Phone Number DAYANA [address] [address] * (ABNORMAL) Differential, auto (11/18/2024 6:35 AM POST DOCTORAL FELLOW) Neutrophil abs 3.7 1.5 - 6.5 K/cumm Comment:Testing performed by : [address] [address] Imm gran abs 0.1 0.0 - 0.1 K/cumm DAYANA Comment:Testing performed by : [address] [address] Lymphocyte abs 1.0 0.8 - 3.3 K/cumm [facility] Comment:Testing performed by : [address] [address] Monocyte abs 1.2(H) 0.2 - 0.8 K/cumm [facility] Comment:Testing performed by : [address] [address] Eosinophil abs 1.0(H) 0.0 - 0.5 K/cumm [facility] Comment:Testing performed by : [address] [address] Basophil abs 0.1 0.0 - 0.1 K/cumm [facility] Comment:Testing performed by : [address] [address] Neutrophil pct 52.9 % [facility] Comment: Interpretive Data Percent cell count reference ranges are not reported, since discordance with absolute values may lead to misinterpretation of CBC data. Current Interpretive Data was last revised on 2018. Testing performed by: [address] [address] Imm gran pct 1.1 % [facility] Comment: Interpretive Data Percent cell count reference ranges are not reported, since discordance with absolute values may lead to misinterpretation of CBC data. Current Interpretive Data was last revised on 2018. Testing performed by: [address] [address] Lymphocyte pct 14.4 % [facility] Comment: Interpretive Data Percent cell count reference ranges are not reported, since discordance with absolute values may lead to misinterpretation of CBC data. Current Interpretive Data was last revised on 2018. Testing performed by: [address] [address] Monocyte pct 17.1 % DAYANA Comment: Interpretive Data Percent cell count reference ranges are not reported, since discordance with absolute values may lead to misinterpretation of CBC data. Current Interpretive Data was last revised on 2018. Testing performed by: [address] [address] Eosinophil pct 13.5 % DAYANA Comment: Interpretive Data Percent cell count reference ranges are not reported, since discordance with absolute values may lead to misinterpretation of CBC data. Current Interpretive Data was last revised on 2018. Testing performed by: [address] [address] Basophil pct 1.0 % DAYANA Comment: Interpretive Data Percent cell count reference ranges are not reported, since discordance with absolute values may lead to misinterpretation of CBC data. Current Interpretive Data was last revised on 2018. Testing performed by: [address] [address] Blood 11/18/2024 6:35 AM POST DOCTORAL FELLOW 11/18/2024 6:57 AM POST DOCTORAL FELLOW us Ivan Vargas MD LAB BLOOD ORDERABLES Final Re sult DAYANA [address] [facility] Department [place] [address] * (ABNORMAL) CBC with auto differential (11/18/2024 6:35 AM POST DOCTORAL FELLOW) WBC 7.1 3.8 - 9.9 K/cumm Comment:Testing performed by : [address] [address] Hgb 9.0(L) 11.9 - 15.5 g/dL DAYANA CARPIO Comment:Testing performed by : [address] [address] Hct 28.2(L) 35.6 - 45.5 % DAYANA Comment:Testing performed by : [address] [address] Plt 247 150 - 400 K/cumm DAYANA Comment:Testing performed by : [address] [address] MPV 11.1 9.1 - 12.3 fL DAYANA CARPIO Comment:Testing performed by : [address] [address] RBC 2.73(L) 3.90 - 5.20 M/cumm DAYANA CARPIO Comment:Testing performed by : [address] [address] MCV 103.3(H) 81.3 - 96.4 fL DAYANA Comment:Testing performed by : [address] [address] MCH 33.0 27.1 - 33.3 pg DAYANA Comment:Testing performed by : [address] [address] MCHC 31.9(L) 32.3 - 35.7 g/dL DAYANA Comment:Testing performed by : [address] [address] RDW CV 16.6(H) 11.1 - 14.9 % DAYANA Comment:Testing performed by : [address] [address] RDW SD 62.6(H) 35.7 - 48.1 fL DAYANA Comment:Testing performed by : [address] [address] NRBC abs 0.00 0.00 - 0.01 K/cumm DAYANA Comment:Testing performed by : [address] [address] Blood 11/18/2024 6:35 AM POST DOCTORAL FELLOW 11/18/2024 6:57 AM POST DOCTORAL FELLOW us Ivan Vargas MD LAB BLOOD ORDERABLES Final Re sult DAYANA [address] [facility] Department [place] [address] * (ABNORMAL) eGFR (11/18/2024 5:52 AM POST DOCTORAL FELLOW) eGFR 28(L) >=60 mL/min/1. 73 m2 Comment: [...] was last reviewed 2021. Testing performed by: [address] [address] Blood 11/18/2024 5:52 AM POST DOCTORAL FELLOW 11/18/2024 6:24 AM POST DOCTORAL FELLOW us Ivan Vargas MD LAB BLOOD ORDERABLES Final Re sult Performing Organization Address [facility] Co de Phone Number [place] [id number] [facility] [place] [address] * Folate (11/18/2024 5:52 AM POST DOCTORAL FELLOW) Folic acid >20.0 >=5.0 ng/mL Comment:Testing performed by : [address] [address] Blood 11/18/2024 5:52 AM POST DOCTORAL FELLOW 11/18/2024 6:24 AM POST DOCTORAL FELLOW us Ivan Vargas MD LAB BLOOD ORDERABLES Final Re sult [address] Department [place] [address] * Vitamin B12 (11/18/2024 5:52 AM POST DOCTORAL FELLOW) [facility] Vitamin B12 910 230 - 1,250 pg/mL Comment:Testing performed by : [address] [address] Blood 11/18/2024 5:52 AM POST DOCTORAL FELLOW 11/18/2024 6:24 AM POST DOCTORAL FELLOW us Ivan Vargas MD LAB BLOOD ORDERABLES Final Re sult DAYANA [facility] [place] [address] * (ABNORMAL) Comprehensive metabolic panel (11/18/2024 5:52 AM POST DOCTORAL FELLOW) [facility] Sodium 132(L) 135 - 145 mmol/L Comment:Testing performed by : [address] [address] Potassium, pl 3.9 3.3 - 4.9 mmol/L DAYANA Comment:Testing performed by : [address] [address] Chloride 92(L) 97 - 110 mmol/L DAYANA Comment:Testing performed by : [address] [address] CO2 27 22 - 32 mmol/L DAYANA Comment:Testing performed by : [address] [address] Anion gap 13 2 - 15 mmol/L DAYANA Comment:Testing performed by : [address] [address] BUN 43(H) 6 - 25 mg/dL DAYANA Comment:Testing performed by : [address] [address] Creatinine 1.90(H) 0.60 - 1.10 mg/dL DAYANA Comment:Testing performed by : [address] [address] Glucose 140 70 - 199 mg/dL DAYANA [...] was last revised 2022. Testing performed by: [address] [address] Calcium 10.0 8.5 - 10.3 mg/dL DAYANA Comment:Testing performed by : [address] [address] Bilirubin, total 1.5(H) 0.1 - 1.2 mg/dL DAYANA Comment:Testing performed by : [address] [address] Protein, pl 6.3(L) 6.5 - 8.5 g/dL DAYANA Comment:Testing performed by : [address] [address] Albumin 3.8 3.5 - 5.0 g/dL DAYANA Comment:Testing performed by : [address] [address] Alk phos 369(H) 40 - 130 Units/L DAYANA Comment:Testing performed by : [address] [address] ALT 17 7 - 45 Units/L DAYANA Comment:Testing performed by : [address] [address] AST 36 10 - 45 Units/L DAYANA Comment:Testing performed by : [address] [address] Blood 11/18/2024 5:52 AM POST DOCTORAL FELLOW 11/18/2024 6:24 AM POST DOCTORAL FELLOW us Ivan Vargas MD LAB BLOOD ORDERABLES Final Re sult Performing Organization Address [facility] Co de Phone Number DAYANA [address] [place] [address] * (ABNORMAL) POCT glucose (11/17/2024 8:52 PM POST DOCTORAL FELLOW) Glucose, POC 275(H) 70 - 199 mg/dL Comment:Testing performed by : [address] [address] Blood 11/17/2024 8:52 PM POST DOCTORAL FELLOW 11/17/2024 8:52 PM POST DOCTORAL FELLOW Ivan Vargas MD LAB POCT ORDERABLES - DEVICE Final Result Performing Organization Address [facility] Co de Phone Number DAYANA [address] [address] * (ABNORMAL) POCT glucose (11/17/2024 6:05 PM POST DOCTORAL FELLOW) Pathologist [facility] Glucose, POC 280(H) 70 - 199 mg/dL Comment:Testing performed by : [address] [address] Glucose comment 1 Use This Result DAYANA CARPIO Comment:Testing performed by : [address] [address] Glucose comment 2 RN/MD Notified DAYANA CARPIO Comment:Testing performed by : [address] [address] Blood 11/17/2024 6:05 PM POST DOCTORAL FELLOW 11/17/2024 6:05 PM POST DOCTORAL FELLOW Ivan Vargas MD LAB POCT ORDERABLES - DEVICE Final Result Performing Organization Address [facility] Co de Phone Number DAYANA [address] [address] * (ABNORMAL) POCT glucose (11/17/2024 1:08 PM POST DOCTORAL FELLOW) Glucose, POC 236(H) 70 - 199 mg/dL Comment:Testing performed by : [facility], [address] [place] [address]., [address] Glucose comment 1 Use This Result DAYANA Comment:Testing performed by : [address] [address] Glucose comment 2 RN/MD Notified DAYANA Comment:Testing performed by : [facility], [address] [place] [address]., [address] Blood 11/17/2024 1:08 PM POST DOCTORAL FELLOW 11/17/2024 1:08 PM POST DOCTORAL FELLOW Ivan Vargas MD LAB POCT ORDERABLES - DEVICE Final Result Performing Organization Address [facility] Co de Phone Number DAYANA [address] [place] [address] * POCT glucose (11/17/2024 9:20 AM POST DOCTORAL FELLOW) [facility] Glucose, POC 146 70 - 199 mg/dL Comment:Testing performed by : [facility], [address] [place] [address]., [address] Glucose comment 1 Use This Result DAYANA Comment:Testing performed by : [address] [address] Glucose comment 2 RN/MD Notified DAYANA Comment:Testing performed by : [address] [address] Blood 11/17/2024 9:20 AM POST DOCTORAL FELLOW 11/17/2024 9:20 AM POST DOCTORAL FELLOW Ivan Vargas MD LAB POCT ORDERABLES - DEVICE Final Result Performing Organization Address [facility]/ZIP Co de Phone Number [address] [email or web address] [address] * (ABNORMAL) eGFR (11/17/2024 7:01 AM POST DOCTORAL FELLOW) [facility] eGFR 28(L) >=60 mL/min/1. 73 m2 [...] was last reviewed 2021. Testing performed by: [address] [address] Blood 11/17/2024 7:01 AM POST DOCTORAL FELLOW 11/17/2024 7:33 AM POST DOCTORAL FELLOW Ivan Vargas MD LAB BLOOD ORDERABLES Final Re sult [facility] [address] [facility] Department [place] [address] * (ABNORMAL) Differential, auto (11/17/2024 7:01 AM POST DOCTORAL FELLOW) Neutrophil abs 3.8 1.5 - 6.5 K/cumm Comment:Testing performed by : [address] [address] Imm gran abs 0.1 0.0 - 0.1 K/cumm DAYANA Comment:Testing performed by : [address] [address] Lymphocyte abs 0.8 0.8 - 3.3 K/cumm DAYANA Comment:Testing performed by : [address] [address] Monocyte abs 1.0(H) 0.2 - 0.8 K/cumm DAYANA Comment:Testing performed by : [address] [address] Eosinophil abs 0.7(H) 0.0 - 0.5 K/cumm [facility] Comment:Testing performed by : [address] [address] Basophil abs 0.1 0.0 - 0.1 K/cumm [facility] Comment:Testing performed by : [address] [address] Neutrophil pct 58.2 % [facility] Comment: Interpretive Data Percent cell count reference ranges are not reported, since discordance with absolute values may lead to misinterpretation of CBC data. Current Interpretive Data was last revised on 2018. Testing performed by: [address] [address] Imm gran pct 0.9 % [facility] Comment: Interpretive Data Percent cell count reference ranges are not reported, since discordance with absolute values may lead to misinterpretation of CBC data. Current Interpretive Data was last revised on 2018. Testing performed by: [address] [address] Lymphocyte pct 12.4 % [facility] Comment: Interpretive Data Percent cell count reference ranges are not reported, since discordance with absolute values may lead to misinterpretation of CBC data. Current Interpretive Data was last revised on 2018. Testing performed by: [address] [address] Monocyte pct 15.8 % [facility] Comment: Interpretive Data Percent cell count reference ranges are not reported, since discordance with absolute values may lead to misinterpretation of CBC data. Current Interpretive Data was last revised on 2018. Testing performed by: [address] [address] Eosinophil pct 11.5 % [facility] Comment: Interpretive Data Percent cell count reference ranges are not reported, since discordance with absolute values may lead to misinterpretation of CBC data. Current Interpretive Data was last revised on 2018. Testing performed by: [address] [address] Basophil pct 1.2 % [facility] Comment: Interpretive Data Percent cell count reference ranges are not reported, since discordance with absolute values may lead to misinterpretation of CBC data. Current Interpretive Data was last revised on 2018. Testing performed by: [address] [address] Blood 11/17/2024 7:01 AM POST DOCTORAL FELLOW 11/17/2024 7:34 AM POST DOCTORAL FELLOW us Ivan Vargas MD LAB BLOOD ORDERABLES [facility] [address] [facility] Department [place] [address] * (ABNORMAL) CBC with auto differential (11/17/2024 7:01 AM POST DOCTORAL FELLOW) WBC 6.5 3.8 - 9.9 K/cumm Comment:Testing performed by : [address] [address] Hgb 8.9(L) 11.9 - 15.5 g/dL [facility] Comment:Testing performed by : [address] [address] Hct 27.6(L) 35.6 - 45.5 % [facility] Comment:Testing performed by : [address] [address] Plt 227 150 - 400 K/cumm [facility] Comment:Testing performed by : [address] [address] MPV 11.2 9.1 - 12.3 fL [facility] Comment:Testing performed by : [address] [address] RBC 2.70(L) 3.90 - 5.20 M/cumm [facility] Comment:Testing performed by : [address] [address] MCV 102.2(H) 81.3 - 96.4 fL [facility] Comment:Testing performed by : [address] [address] MCH 33.0 27.1 - 33.3 pg [facility] Comment:Testing performed by : [address] [address] MCHC 32.2(L) 32.3 - 35.7 g/dL [facility] CARP[facility] Comment:Testing performed by : [address] [address] RDW CV 16.6(H) 11.1 - 14.9 % [facility] Comment:Testing performed by : [address] [address] RDW SD 60.4(H) 35.7 - 48.1 fL [facility] Comment:Testing performed by : [address] [address] NRBC abs 0.00 0.00 - 0.01 K/cumm [facility] Comment:Testing performed by : [address] [address] Blood 11/17/2024 7:01 AM POST DOCTORAL FELLOW 11/17/2024 7:34 AM POST DOCTORAL FELLOW Ivan Vargas MD LAB BLOOD ORDERABLES Final Re sult [facility] Department [place] [address] * (ABNORMAL) Comprehensive metabolic panel (11/17/2024 7:01 AM POST DOCTORAL FELLOW) Sodium 135 135 - 145 mmol/L Comment:Testing performed by : [address] [address] Potassium, pl 3.3 3.3 - 4.9 mmol/L [facility] Comment:Testing performed by : [address] [address] Chloride 92(L) 97 - 110 mmol/L [facility] Comment:Testing performed by : [address] [address] CO2 29 22 - 32 mmol/L [facility] Comment:Testing performed by : [address] [address] Anion gap 14 2 - 15 mmol/L [facility] Comment:Testing performed by : [address] [address] BUN 40(H) 6 - 25 mg/dL [facility] Comment:Testing performed by : [address] [address] Creatinine 1.90(H) 0.60 - 1.10 mg/dL [facility] Comment:Testing performed by : [address] [address] Glucose 146 70 - 199 mg/dL [facility] [...] was last revised 2022. Testing performed by: [address] [address] Calcium 9.3 8.5 - 10.3 mg/dL [facility] Comment:Testing performed by : [address] [address] Bilirubin, total 1.6(H) 0.1 - 1.2 mg/dL [facility] Comment:Testing performed by : [address] [address] Protein, pl 6.1(L) 6.5 - 8.5 g/dL [facility] Comment:Testing performed by : [address] [address] Albumin 3.8 3.5 - 5.0 g/dL [facility] Comment:Testing performed by : [address] [address] Alk phos 309(H) 40 - 130 Units/L [facility] Comment:Testing performed by : [address] [address] ALT 14 7 - 45 Units/L [facility] Comment:Testing performed by : [address] [address] AST 32 10 - 45 Units/L [facility] Comment:Testing performed by : [address] [address] Blood 11/17/2024 7:01 AM POST DOCTORAL FELLOW 11/17/2024 7:33 AM POST DOCTORAL FELLOW Ivan Vargas MD LAB BLOOD ORDERABLES Final Re sult Performing Organization Address [facility] de Phone Number MARY ALICE[address] [address] * (ABNORMAL) POCT glucose (11/16/2024 7:44 PM POST DOCTORAL FELLOW) Glucose, POC 205(H) 70 - 199 mg/dL Comment:Testing performed by : [address] [address] Glucose comment 1 Use This Result [facility] Comment:Testing performed by : [address], [address] Glucose comment 2 RN/MD Notified [facility] Comment:Testing performed by : [address] [address] Blood 11/16/2024 7:44 PM POST DOCTORAL FELLOW 11/16/2024 7:44 PM POST DOCTORAL FELLOW Ivan Vargas MD LAB POCT ORDERABLES - DEVICE Final Result Performing Organization Address [facility] de Phone Number [address] [address] * POCT glucose (11/16/2024 6:33 PM POST DOCTORAL FELLOW) Glucose, POC 155 70 - 199 mg/dL Comment:Testing performed by : [address] [address] Glucose comment 1 Use This Result [facility] Comment:Testing performed by : [address] [address] Glucose comment 2 RN/MD Notified [facility] Comment:Testing performed by : [address] [address] Blood 11/16/2024 6:33 PM POST DOCTORAL FELLOW 11/16/2024 6:33 PM POST DOCTORAL FELLOW Ivan Vargas MD LAB POCT ORDERABLES - DEVICE Final Result Performing Organization Address City/[facility]/ZIP Co de Phone Number DAY[facility] [address] [facility] [place] [address] * (ABNORMAL) POCT glucose (11/16/2024 11:54 AM POST DOCTORAL FELLOW) Glucose, POC 203(H) 70 - 199 mg/dL Comment:Testing performed by : [address] [address] Glucose comment 1 Use This Result DAY[facility] CARPIO Comment:Testing performed by : [address] [address] Glucose comment 2 RN/MD Notified [facility] Comment:Testing performed by : [address] [address] Blood 11/16/2024 11:5 4 AM POST DOCTORAL FELLOW 11/16/2024 11:54 AM POST DOCTORAL FELLOW Ivan Vargas MD LAB POCT ORDERABLES - DEVICE Final Result Performing Organization Address [facility]/ZIP Co de Phone Number [facility] [place] [address] * (ABNORMAL) eGFR (11/16/2024 9:56 AM POST DOCTORAL FELLOW) eGFR 26(L) >=60 mL/min/1. 73 m2 Comment: [...] was last reviewed 2021. Testing performed by: [address] [address] Blood 11/16/2024 9:56 AM POST DOCTORAL FELLOW 11/16/2024 10:30 AM POST DOCTORAL FELLOW us Ivan Vargas MD LAB BLOOD ORDERABLES Final Re sult [facility] Department of Laboratories [place], [place] [id number] * (ABNORMAL) Differential, auto (11/16/2024 9:56 AM POST DOCTORAL FELLOW) Neutrophil abs 4.2 1.5 - 6.5 K/cumm Comment:Testing performed by : [address] [address] Imm gran abs 0.1 0.0 - 0.1 K/cumm [facility] Comment:Testing performed by : [address] [address] Lymphocyte abs 0.5(L) 0.8 - 3.3 K/cumm [facility] Comment:Testing performed by : [address] [address] Monocyte abs 0.8 0.2 - 0.8 K/cumm [facility] Comment:Testing performed by : [address] [address] Eosinophil abs 0.6(H) 0.0 - 0.5 K/cumm [facility] Comment:Testing performed by : [address] [address] Basophil abs 0.1 0.0 - 0.1 K/cumm [facility] Comment:Testing performed by : [address] [address] Neutrophil pct 67.6 % [facility] Comment: Interpretive Data Percent cell count reference ranges are not reported, since discordance with absolute values may lead to misinterpretation of CBC data. Current Interpretive Data was last revised on 2018. Testing performed by: [address] [address] Imm gran pct 1.0 % [facility] Comment: Interpretive Data Percent cell count reference ranges are not reported, since discordance with absolute values may lead to misinterpretation of CBC data. Current Interpretive Data was last revised on 2018. Testing performed by: [address] [address] Lymphocyte pct 8.2 % [facility] Comment: Interpretive Data Percent cell count reference ranges are not reported, since discordance with absolute values may lead to misinterpretation of CBC data. Current Interpretive Data was last revised on 2018. Testing performed by: [address] [address] Monocyte pct 12.5 % [facility] Comment: Interpretive Data Percent cell count reference ranges are not reported, since discordance with absolute values may lead to misinterpretation of CBC data. Current Interpretive Data was last revised on 2018. Testing performed by: [address] [address] Eosinophil pct 9.6 % [facility] Comment: Interpretive Data Percent cell count reference ranges are not reported, since discordance with absolute values may lead to misinterpretation of CBC data. Current Interpretive Data was last revised on 2018. Testing performed by: [address] [address] Basophil pct 1.1 % [facility] Comment: Interpretive Data Percent cell count reference ranges are not reported, since discordance with absolute values may lead to misinterpretation of CBC data. Current Interpretive Data was last revised on 2018. Testing performed by: [address] [address] Blood 11/16/2024 9:56 AM POST DOCTORAL FELLOW 11/16/2024 10:29 AM POST DOCTORAL FELLOW us Ivan Vargas MD LAB BLOOD ORDERABLES Final Re sult [facility] [address] [facility] Department [place] [address] * (ABNORMAL) CBC with auto differential (11/16/2024 9:56 AM POST DOCTORAL FELLOW) WBC 6.2 3.8 - 9.9 K/cumm Comment:Testing performed by : [address] [address] Hgb 8.4(L) 11.9 - 15.5 g/dL [facility] Comment:Testing performed by : [address] [address] Hct 26.7(L) 35.6 - 45.5 % [facility] Comment:Testing performed by : [address] [address] Plt 216 150 - 400 K/cumm [facility] Comment:Testing performed by : [address] [address] MPV 11.1 9.1 - 12.3 fL [facility] Comment:Testing performed by : [address] [address] RBC 2.60(L) 3.90 - 5.20 M/cumm [facility] Comment:Testing performed by : [address] [address] MCV 102.7(H) 81.3 - 96.4 fL [facility] Comment:Testing performed by : [address] [address] MCH 32.3 27.1 - 33.3 pg [facility] Comment:Testing performed by : [address] [address] MCHC 31.5(L) 32.3 - 35.7 g/dL [facility] Comment:Testing performed by : [address] [address] RDW CV 16.6(H) 11.1 - 14.9 % [facility] CARPIO Comment:Testing performed by : [address] [address] RDW SD 61.2(H) 35.7 - 48.1 fL [facility] Comment:Testing performed by : [address] [address] NRBC abs 0.00 0.00 - 0.01 K/cumm [facility] CARP[facility] Comment:Testing performed by : [address] [address] Blood 11/16/2024 9:56 AM POST DOCTORAL FELLOW 11/16/2024 10:29 AM POST DOCTORAL FELLOW Ivan Vargas MD LAB BLOOD ORDERABLES Final Re sult Performing Organization Address [facility] de Phone Number [place] [id number] [facility] [place] [address] * Hemoglobin A1c (11/16/2024 9:56 AM POST DOCTORAL FELLOW) [facility] Hgb A1C 5.4 4.0 - 5.6 % Comment:Testing performed by : [address] [address] Estimated Average Glucose 108 mg/dL [facility] CARPIO Comment: The ADA recommends reporting an estimated Average Glucose (eAG) with all Hemoglobin A1c results using the equation derived from a study of 507 normal and diabetic adults. Minority populations were underrepresented and children were not included. (Diabetes Care 31:6498-7224, 2008). The eAG is not equivalent to a fasting glucose. Testing performed by: [address] [address] Blood 11/16/2024 9:56 AM POST DOCTORAL FELLOW 11/16/2024 10:29 AM POST DOCTORAL FELLOW us Ivan Vargas MD LAB BLOOD ORDERABLES Final Re sult Performing Organization Address [facility] Co de Phone Number [place] [phone] [facility] [place] [address] * (ABNORMAL) Comprehensive metabolic panel (11/16/2024 9:56 AM POST DOCTORAL FELLOW) Sodium 133(L) 135 - 145 mmol/L Comment:Testing performed by : [address] [address] Potassium, pl 3.1(L) 3.3 - 4.9 mmol/L [facility] Comment:Testing performed by : [address] [address] Chloride 92(L) 97 - 110 mmol/L [facility] Comment:Testing performed by : [address] [address] CO2 27 22 - 32 mmol/L [facility] Comment:Testing performed by : [address] [address] Anion gap 14 2 - 15 mmol/L [facility] Comment:Testing performed by : [address] [address] BUN 39(H) 6 - 25 mg/dL [facility] Comment:Testing performed by : [address] [address] Creatinine 2.04(H) 0.60 - 1.10 mg/dL [facility] Comment:Testing performed by : [address] [address] Glucose 136 70 - 199 mg/dL [facility] Comment: Interpretive Data Fasting glucose >/= [...] was last revised 2022. Testing performed by: [address] [address] Calcium 8.9 8.5 - 10.3 mg/dL [facility] Comment:Testing performed by : [address] [address] Bilirubin, total 1.7(H) 0.1 - 1.2 mg/dL [facility] Comment:Testing performed by : [address] [address] Protein, pl 6.6 6.5 - 8.5 g/dL [facility] Comment:Testing performed by : [address], [place]., [address] Albumin 4.2 3.5 - 5.0 g/dL [facility] Comment:Testing performed by : [address], [place]., [address] Alk phos 247(H) 40 - 130 Units/L [facility] Comment:Testing performed by : [address] [address] ALT 12 7 - 45 Units/L [facility] Comment:Testing performed by : [address] [address] AST 30 10 - 45 Units/L [facility] Comment:Testing performed by : [address] [address] Blood 11/16/2024 9:56 AM POST DOCTORAL FELLOW 11/16/2024 10:30 AM POST DOCTORAL FELLOW Ivan Vargas MD LAB BLOOD ORDERABLES Final Re sult [facility] [address] [facility] Department of Laboratories [place], [place] [id number] * POCT glucose (11/16/2024 8:53 AM POST DOCTORAL FELLOW) [facility] Glucose, POC 146 70 - 199 mg/dL Comment:Testing performed by : [address] [address] Glucose comment 1 Use This Result [facility] Comment:Testing performed by : [address] [address] Glucose comment 2 RN/MD Notified [facility] Comment:Testing performed by : [address] [address] Blood 11/16/2024 8:53 AM POST DOCTORAL FELLOW 11/16/2024 8:53 AM POST DOCTORAL FELLOW Ivan Vargas MD LAB POCT ORDERABLES - DEVICE Final Result Performing Organization Address [facility] de Phone Number DAYANA [address] [address] * POCT glucose (11/16/2024 12:30 AM POST DOCTORAL FELLOW) Glucose, POC 156 70 - 199 mg/dL Comment:Testing performed by : [facility], [address] [place] [address]., [address] Glucose comment 1 Use This Result DAYANA Comment:Testing performed by : [address] [address] Glucose comment 2 RN/MD Notified [facility] Comment:Testing performed by : [address] [address] Blood 11/16/2024 12:3 0 AM POST DOCTORAL FELLOW 11/16/2024 12:30 AM POST DOCTORAL FELLOW Ivan Vargas MD LAB POCT ORDERABLES - DEVICE Final Result Performing Organization Address [facility] Co de Phone Number DAYANA [address] [address] * POCT glucose (11/15/2024 8:35 PM POST DOCTORAL FELLOW) Glucose, POC 196 70 - 199 mg/dL Comment:Testing performed by : [address] [address] Glucose comment 1 Use This Result [facility] Comment:Testing performed by : [address] [address] Glucose comment 2 RN/MD Notified [facility] Comment:Testing performed by : [address] [address] Blood 11/15/2024 8:35 PM POST DOCTORAL FELLOW 11/15/2024 8:35 PM POST DOCTORAL FELLOW us Ivan Vargas MD LAB POCT ORDERABLES - DEVICE Final Result Performing Organization Address City/[facility]/ZIP Co de Phone Number DAYANA [address] [place] [place] [address] * POCT glucose (11/15/2024 5:29 PM POST DOCTORAL FELLOW) Glucose, POC 152 70 - 199 mg/dL Comment:Testing performed by : [address] [address] Blood 11/15/2024 5:29 PM POST DOCTORAL FELLOW 11/15/2024 5:29 PM POST DOCTORAL FELLOW us Ivan Vargas MD LAB POCT ORDERABLES - DEVICE Final Result Performing Organization Address City/[facility] Co de Phone Number DAYANA [address] [place] [address] * POCT glucose (11/15/2024 1:28 PM POST DOCTORAL FELLOW) Glucose, POC 154 70 - 199 mg/dL Comment:Testing performed by : [address] [address] Blood 11/15/2024 1:28 PM POST DOCTORAL FELLOW 11/15/2024 1:28 PM POST DOCTORAL FELLOW us Ivan Vargas MD LAB POCT ORDERABLES - DEVICE Final Result Performing Organization Address [facility]/ZIP Co de Phone Number DAYANA [address] [place] [address] * POCT glucose (11/15/2024 8:56 AM POST DOCTORAL FELLOW) Glucose, POC 130 70 - 199 mg/dL Comment:Testing performed by : [address] [address] Blood 11/15/2024 8:56 AM POST DOCTORAL FELLOW 11/15/2024 8:56 AM POST DOCTORAL FELLOW us Ivan Vargas MD LAB POCT ORDERABLES - DEVICE Final Result Performing Organization Address [facility] de Phone Number DAY[facility] [place] [address] * (ABNORMAL) eGFR (11/15/2024 4:35 AM POST DOCTORAL FELLOW) Pathologist [facility] eGFR 24(L) >=60 mL/min/1. 73 m2 Comment: [...] was last reviewed 2021. Testing performed by: [address] [address] Blood 11/15/2024 4:35 AM POST DOCTORAL FELLOW 11/15/2024 6:10 AM POST DOCTORAL FELLOW us Ivan Vargas MD LAB BLOOD ORDERABLES Final Re sult Performing Organization Address [facility] Co de Phone Number DAY[facility] Department [place] [address] * (ABNORMAL) Differential, auto (11/15/2024 4:35 AM POST DOCTORAL FELLOW) Pathologist [facility] Neutrophil abs 5.0 1.5 - 6.5 K/cumm Comment:Testing performed by : [address] [address] Imm gran abs 0.1 0.0 - 0.1 K/cumm [facility] Comment:Testing performed by : [address] [address] Lymphocyte abs 0.7(L) 0.8 - 3.3 K/cumm [facility] Comment:Testing performed by : [address] [address] Monocyte abs 1.0(H) 0.2 - 0.8 K/cumm [facility] Comment:Testing performed by : [address] [address] Eosinophil abs 0.6(H) 0.0 - 0.5 K/cumm [facility] Comment:Testing performed by : [address] [address] Basophil abs 0.1 0.0 - 0.1 K/cumm DAAYNA Comment:Testing performed by : [address] [address] Neutrophil pct 67.6 % [facility] Comment: Interpretive Data Percent cell count reference ranges are not reported, since discordance with absolute values may lead to misinterpretation of CBC data. Current Interpretive Data was last revised on 2018. Testing performed by: [address] [address] Imm gran pct 0.8 % [facility] Comment: Interpretive Data Percent cell count reference ranges are not reported, since discordance with absolute values may lead to misinterpretation of CBC data. Current Interpretive Data was last revised on 2018. Testing performed by: [address] [address] Lymphocyte pct 8.8 % [facility] Comment: Interpretive Data Percent cell count reference ranges are not reported, since discordance with absolute values may lead to misinterpretation of CBC data. Current Interpretive Data was last revised on 2018. Testing performed by: [address] [address] Monocyte pct 13.0 % [facility] Comment: Interpretive Data Percent cell count reference ranges are not reported, since discordance with absolute values may lead to misinterpretation of CBC data. Current Interpretive Data was last revised on 2018. Testing performed by: [address] [address] Eosinophil pct 8.7 % [facility] Comment: Interpretive Data Percent cell count reference ranges are not reported, since discordance with absolute values may lead to misinterpretation of CBC data. Current Interpretive Data was last revised on 2018. Testing performed by: [address] [address] Basophil pct 1.1 % [facility] Comment: Interpretive Data Percent cell count reference ranges are not reported, since discordance with absolute values may lead to misinterpretation of CBC data. Current Interpretive Data was last revised on 2018. Testing performed by: [address] [address] Blood 11/15/2024 4:35 AM POST DOCTORAL FELLOW 11/15/2024 6:15 AM POST DOCTORAL FELLOW us Ivan Vargas MD LAB BLOOD ORDERABLES Final Re sult [facility] [address] [facility] Department [place] [address] * (ABNORMAL) CBC with auto differential (11/15/2024 4:35 AM POST DOCTORAL FELLOW) WBC 7.4 3.8 - 9.9 K/cumm Comment:Testing performed by : [address] [address] Hgb 8.6(L) 11.9 - 15.5 g/dL [facility] CARPIO Comment:Testing performed by : [address] [address] Hct 26.5(L) 35.6 - 45.5 % [facility] Comment:Testing performed by : [address] [address] Plt 238 150 - 400 K/cumm DAY[facility] CARP[facility] Comment:Testing performed by : [address] [address] MPV 11.0 9.1 - 12.3 fL [facility] CAR[facility] Comment:Testing performed by : [address] [address] RBC 2.59(L) 3.90 - 5.20 M/cumm DAY[facility] Comment:Testing performed by : [address] [address] MCV 102.3(H) 81.3 - 96.4 fL [facility] Comment:Testing performed by : [address] [address] MCH 33.2 27.1 - 33.3 pg [facility] Comment:Testing performed by : [address] [address] MCHC 32.5 32.3 - 35.7 g/dL [facility] Comment:Testing performed by : [address], [address] RDW CV 16.4(H) 11.1 - 14.9 % [facility] Comment:Testing performed by : [address], [address] RDW SD 60.1(H) 35.7 - 48.1 fL [facility] Comment:Testing performed by : [address] [address] NRBC abs 0.00 0.00 - 0.01 K/cumm [facility] Comment:Testing performed by : [address] [address] Blood 11/15/2024 4:35 AM POST DOCTORAL FELLOW 11/15/2024 6:15 AM POST DOCTORAL FELLOW us Ivan Vargas MD LAB BLOOD ORDERABLES Final Re sult [facility] [address] [facility] Department of Laboratories [place], [place] [id number] * (ABNORMAL) Protime-INR (11/15/2024 4:35 AM POST DOCTORAL FELLOW) PT 16.8(H) 12.0 - 14.6 sec Comment: Ref Range High Testing performed by: [address], [address] INR 1.4(H) 0.9 - 1.2 [facility] Comment: Ref Range High Interpretive data Oral anticoagulant therapeutic ranges: Venous thromboembolism prophylaxis or treatment: 2.0-3.0 CARDIOLOGY Standard range: 2.0-3.0 High-intensity range: 2.5-3.5 Refer to indication-specific guidelines for appropriate target ranges for prosthetic heart valve replacement. Current interpretive data was last revised on 2019. Testing performed by: [address] [address] Blood 11/15/2024 4:35 AM POST DOCTORAL FELLOW 11/15/2024 6:10 AM POST DOCTORAL FELLOW Bravo Mckenzie MD LAB BLOOD ORDERABLES Final Re sult Performing Organization Address City/[facility] [facility] Co de Phone Number [address] [place] [address] * Magnesium (11/15/2024 4:35 AM POST DOCTORAL FELLOW) Pathologist [facility] Magnesium 1.7 1.4 - 2.5 mg/dL Comment:Testing performed by : [address] [address] Blood 11/15/2024 4:35 AM POST DOCTORAL FELLOW 11/15/2024 6:10 AM POST DOCTORAL FELLOW Ivan Vargas MD LAB BLOOD ORDERABLES Final Re sult Performing Organization Address [facility] Co de Phone Number [address] [address] * (ABNORMAL) Comprehensive metabolic panel (11/15/2024 4:35 AM POST DOCTORAL FELLOW) Sodium 135 135 - 145 mmol/L Comment:Testing performed by : [address] [address] Potassium, pl 3.1(L) 3.3 - 4.9 mmol/L DAYANA Comment:Testing performed by : [address] [address] Chloride 89(L) 97 - 110 mmol/L DAYANA Comment:Testing performed by : [address] [address] CO2 27 22 - 32 mmol/L DAYANA Comment:Testing performed by : [address] [address] Anion gap 19(H) 2 - 15 mmol/L DAYANA Comment:Testing performed by : [address] [address] BUN 37(H) 6 - 25 mg/dL DAYANA Comment:Testing performed by : [address] [address] Creatinine 2.20(H) 0.60 - 1.10 mg/dL [facility] Comment:Testing performed by : [address] [address] Glucose 103 70 - 199 mg/dL [facility] Comment: Interpretive Data Fasting glucose >/= [...] was last revised 2022. Testing performed by: [address] [address] Calcium 8.4(L) 8.5 - 10.3 mg/dL DAYANA Comment:Testing performed by : [address] [address] Bilirubin, total 1.6(H) 0.1 - 1.2 mg/dL [facility] Comment:Testing performed by : [address] [address] Protein, pl 6.1(L) 6.5 - 8.5 g/dL DAYANA Comment:Testing performed by : [address] [address] Albumin 3.7 3.5 - 5.0 g/dL DAYANA Comment:Testing performed by : [address] [address] Alk phos 267(H) 40 - 130 Units/L DAYANA CARPIO Comment:Testing performed by : [address] [address] ALT 14 7 - 45 Units/L DAYANA CARPIO Comment:Testing performed by : [address], [address] AST 30 10 - 45 Units/L DAYANA CARPIO Comment:Testing performed by : [address] [address] Blood 11/15/2024 4:35 AM POST DOCTORAL FELLOW 11/15/2024 6:10 AM POST DOCTORAL FELLOW Ivan Vargas MD LAB BLOOD ORDERABLES Final Re sult Performing Organization Address [facility] Co de Phone Number MARY ALICE[address] [place] [address] * POCT glucose (11/14/2024 9:28 PM POST DOCTORAL FELLOW) Glucose, POC 138 70 - 199 mg/dL Comment:Testing performed by : [address] [address] Glucose comment 1 Use This Result DAYANA CARPIO Comment:Testing performed by : [address] [address] Glucose comment 2 RN/MD Notified DAYANA Comment:Testing performed by : [address] [address] Blood 11/14/2024 9:28 PM POST DOCTORAL FELLOW 11/14/2024 9:28 PM POST DOCTORAL FELLOW Ivan Vargas MD LAB POCT ORDERABLES - DEVICE Final Result [address] [place] [address] * POCT glucose (11/14/2024 5:48 PM POST DOCTORAL FELLOW) Glucose, POC 120 70 - 199 mg/dL Comment:Testing performed by : [address] [address] Glucose comment 1 Use This Result DAYANA CARPIO Comment:Testing performed by : [address] [address] Glucose comment 2 RN/MD Notified DAYANA CARPIO Comment:Testing performed by : [address] [address] Blood 11/14/2024 5:48 PM POST DOCTORAL FELLOW 11/14/2024 5:48 PM POST DOCTORAL FELLOW Ivan Vargas MD LAB POCT ORDERABLES - DEVICE Final Result Performing Organization Address [facility] Co de Phone Number MARY ALICE[address] [place] [address] * Sodium, urine, random (11/14/2024 3:29 PM POST DOCTORAL FELLOW) Sodium, ur 42 mmol/L Comment: Interpretive Data No reference range established. Current interpretive data was last revised 2019. Urine 11/14/2024 3:29 PM POST DOCTORAL FELLOW 11/14/2024 6:41 PM POST DOCTORAL FELLOW Bravo Mckenzie MD LAB URINE ORDERABLES Final Re sult Performing Organization Address [facility] Co de Phone Number [address] [address] * (ABNORMAL) Urinalysis reflex to microscopic and culture Urine, clean voided (11/14/2024 3:28 PM POST DOCTORAL FELLOW) Color, ur Yellow Yellow Comment:Testing performed by : [address] [address] Clarity, ur Clear Clear DAYANA CARPIO Comment:Testing performed by : [address] [address] Specific gravity, ur 1.018 1.003 - 1.030 DAYANA CARPIO Comment:Testing performed by : [address] [address] pH, urine 5.5 DAYANA Comment: Interpretive Data U rine pH is affected by diet, medications, systemic acid-base disturbances, and renal tubular function. pH may affect urinary stone formation. For example, urine pH below 6.0 may help reduce the tendency for calcium phosphate stones and pH greater than 6.0 may reduce the tendency for uric acid stone formation. Source: [facility] [employer] Current Interpretive Data was last revised on 2017 Testing performed by: [facility], [address] [place] [address], [place]., [address] Protein, ur ql Negative Negative DAYANA Comment:Testing performed by : [facility], [address] [place] [address], [place]., [address] Glucose, ur ql 1+(A) Negative DAYANA Comment:Testing performed by : [address], [place]., [address] Ketones, ur Negative Negative DAYANA Comment:Testing performed by : [address], [place]., [address] Bilirubin, ur Negative Negative DAYANA Comment:Testing performed by : [address], [place]., [address] Blood, ur Negative Negative DAYANA Comment:Testing performed by : [address], [place]., [address] Urobilinogen, ur <2.0 <2.0 mg/dL DAYANA Comment:Testing performed by : [address], [place]., [address] Nitrite, ur Negative Negative DAYANA Comment:Testing performed by : [address], [place]., [address] Leukocyte esterase, ur Negative Negative DAYANA Comment:Testing performed by : [address], [place]., [address] UA reflex comment Reflex conditions for microscopic UA and culture not met. DAYANA Comment:Testing performed by : [address], [place]., [address] Urine, clean voided 11/14/2024 3:28 PM POST DOCTORAL FELLOW 11/14/2024 3:49 PM POST DOCTORAL FELLOW us Ivan Vargas MD LAB MICROBIOLOGY - GENERAL OR DERABLES Final Result Performing Organization Address [facility] Co de Phone Number DAYANA [address] [address] * Ammonia (11/14/2024 2:16 PM POST DOCTORAL FELLOW) Ammonia 34 <=50 mcmol/L Comment: Please note on 02/21/2024 the unit of measure changed from mcg/dL to mcmol/L. Current Interpretive Data was last revised on 2024 Testing performed by: [address] [address] Blood 11/14/2024 2:16 PM POST DOCTORAL FELLOW 11/14/2024 2:22 PM POST DOCTORAL FELLOW Ivan Vargas MD LAB BLOOD ORDERABLES Final Re sult Performing Organization Address [facility] Co de Phone Number DAYANA [address] [address] * POCT glucose (11/14/2024 11:21 AM POST DOCTORAL FELLOW) Glucose, POC 129 70 - 199 mg/dL Comment:Testing performed by : [address] [address] Glucose comment 1 Use This Result DAYANA CARPIO Comment:Testing performed by : [address] [address] Glucose comment 2 RN/MD Notified DAYANA Comment:Testing performed by : [address] [address] Blood 11/14/2024 11:2 1 AM POST DOCTORAL FELLOW 11/14/2024 11:21 AM POST DOCTORAL FELLOW Ivan Vargas MD LAB POCT ORDERABLES - DEVICE Final Result Performing Organization Address [facility] Co de Phone Number DAYANA [address] [address] * POCT glucose (11/14/2024 8:11 AM POST DOCTORAL FELLOW) Pathologist [facility] Glucose, POC 107 70 - 199 mg/dL Comment:Testing performed by : [facility], [address] [place] [address]., [address] Glucose comment 1 Use This Result DAYANA CARPIO Comment:Testing performed by : [facility], [address] [place] [address]., [address] Blood 11/14/2024 8:11 AM POST DOCTORAL FELLOW 11/14/2024 8:11 AM POST DOCTORAL FELLOW us Ivan Vargas MD LAB POCT ORDERABLES - DEVICE Final Result DAYANA CARPIO [address] [facility] [place] [address] * (ABNORMAL) eGFR (11/14/2024 5:03 AM POST DOCTORAL FELLOW) [facility] eGFR 24(L) >=60 mL/min/1. 73 m2 [...] was last reviewed 2021. Testing performed by: [address] [address] Blood 11/14/2024 5:03 AM POST DOCTORAL FELLOW 11/14/2024 5:33 AM POST DOCTORAL FELLOW Ivan Vargas MD LAB BLOOD ORDERABLES Final Re sult DAYANA [address] [facility] Department [place] [address] * (ABNORMAL) Differential, auto (11/14/2024 5:03 AM POST DOCTORAL FELLOW) Neutrophil abs 4.8 1.5 - 6.5 K/cumm Comment:Testing performed by : [address] [address] Imm gran abs 0.0 0.0 - 0.1 K/cumm DAYANA Comment:Testing performed by : [address] [address] Lymphocyte abs 0.7(L) 0.8 - 3.3 K/cumm DAYANA Comment:Testing performed by : [address] [address] Monocyte abs 1.0(H) 0.2 - 0.8 K/cumm DAYANA Comment:Testing performed by : [address] [address] Eosinophil abs 0.7(H) 0.0 - 0.5 K/cumm DAYANA Comment:Testing performed by : [address] [address] Basophil abs 0.1 0.0 - 0.1 K/cumm DAYANA Comment:Testing performed by : [address] [address] Neutrophil pct 65.6 % DAYANA Comment: Interpretive Data Percent cell count reference ranges are not reported, since discordance with absolute values may lead to misinterpretation of CBC data. Current Interpretive Data was last revised on 2018. Testing performed by: [address] [address] Imm gran pct 0.4 % DAYANA Comment: Interpretive Data Percent cell count reference ranges are not reported, since discordance with absolute values may lead to misinterpretation of CBC data. Current Interpretive Data was last revised on 2018. Testing performed by: [address] [address] Lymphocyte pct 10.0 % CERNER Comment: Interpretive Data Percent cell count reference ranges are not reported, since discordance with absolute values may lead to misinterpretation of CBC data. Current Interpretive Data was last revised on 2018. Testing performed by: [address] [address] Monocyte pct 13.4 % DAYANA Comment: Interpretive Data Percent cell count reference ranges are not reported, since discordance with absolute values may lead to misinterpretation of CBC data. Current Interpretive Data was last revised on 2018. Testing performed by: [address] [address] Eosinophil pct 9.4 % ADYANA Comment: Interpretive Data Percent cell count reference ranges are not reported, since discordance with absolute values may lead to misinterpretation of CBC data. Current Interpretive Data was last revised on 2018. Testing performed by: [address] [address] Basophil pct 1.2 % DAYANA Comment: Interpretive Data Percent cell count reference ranges are not reported, since discordance with absolute values may lead to misinterpretation of CBC data. Current Interpretive Data was last revised on 2018. Testing performed by: [address] [address] Blood 11/14/2024 5:03 AM POST DOCTORAL FELLOW 11/14/2024 5:34 AM POST DOCTORAL FELLOW us Ivan Vargas MD LAB BLOOD ORDERABLES Final Re sult [facility] [address] [facility] Department [place] [address] * (ABNORMAL) CBC with auto differential (11/14/2024 5:03 AM POST DOCTORAL FELLOW) WBC 7.3 3.8 - 9.9 K/cumm Comment:Testing performed by : [address] [address] Hgb 8.5(L) 11.9 - 15.5 g/dL DAYANA Comment:Testing performed by : [address] [address] Hct 26.2(L) 35.6 - 45.5 % DAYANA Comment:Testing performed by : [address] [address] Plt 212 150 - 400 K/cumm DAYANA Comment:Testing performed by : [address] [address] MPV 10.7 9.1 - 12.3 fL DAYANA Comment:Testing performed by : [address], [address] RBC 2.57(L) 3.90 - 5.20 M/cumm DAYANA Comment:Testing performed by : [address] [address] MCV 101.9(H) 81.3 - 96.4 fL DAYANA Comment:Testing performed by : [address], [address] MCH 33.1 27.1 - 33.3 pg DAYANA Comment:Testing performed by : [address], [address] MCHC 32.4 32.3 - 35.7 g/dL DAYANA Comment:Testing performed by : [address], [address] RDW CV 16.8(H) 11.1 - 14.9 % DAYANA Comment:Testing performed by : [address], [address] RDW SD 60.4(H) 35.7 - 48.1 fL DAYANA Comment:Testing performed by : [address], [address] NRBC abs 0.00 0.00 - 0.01 K/cumm DAYANA Comment:Testing performed by : [address], [address] Blood 11/14/2024 5:03 AM POST DOCTORAL FELLOW 11/14/2024 5:34 AM POST DOCTORAL FELLOW Ivan Vargas MD LAB BLOOD ORDERABLES Final Re sult DAYANA [address] [facility] Department [place] [address] * (ABNORMAL) Comprehensive metabolic panel (11/14/2024 5:03 AM POST DOCTORAL FELLOW) Sodium 135 135 - 145 mmol/L Comment:Testing performed by : [address] [address] Potassium, pl 3.5 3.3 - 4.9 mmol/L DAYANA Comment:Testing performed by : [address] [address] Chloride 91(L) 97 - 110 mmol/L DAYANA Comment:Testing performed by : [address] [address] CO2 28 22 - 32 mmol/L DAYANA Comment:Testing performed by : [address] [address] Anion gap 16(H) 2 - 15 mmol/L DAYANA Comment:Testing performed by : [address] [address] BUN 33(H) 6 - 25 mg/dL DAYANA Comment:Testing performed by : [address] [address] Creatinine 2.20(H) 0.60 - 1.10 mg/dL DAYANA Comment:Testing performed by : [address] [address] Glucose 94 70 - 199 mg/dL DAYANA [...] was last revised 2022. Testing performed by: [address] [place] [address] Calcium 8.3(L) 8.5 - 10.3 mg/dL DAYANA Comment:Testing performed by : [address] [address] Bilirubin, total 1.4(H) 0.1 - 1.2 mg/dL DAYANA Comment:Testing performed by : [address] [address] Protein, pl 6.0(L) 6.5 - 8.5 g/dL DAYANA Comment:Testing performed by : [address] [address] Albumin 3.6 3.5 - 5.0 g/dL DAYANA Comment:Testing performed by : [address] [address] Alk phos 256(H) 40 - 130 Units/L DAYANA Comment:Testing performed by : [address] [address] ALT 17 7 - 45 Units/L DAYANA Comment:Testing performed by : [address] [address] AST 30 10 - 45 Units/L DAYANA Comment:Testing performed by : [address] [address] Blood 11/14/2024 5:03 AM POST DOCTORAL FELLOW 11/14/2024 5:33 AM POST DOCTORAL FELLOW us Ivan Vargas MD LAB BLOOD ORDERABLES Final Re sult MARY ALICENIKOS [address] [facility] Department of Laboratories [place], [place] [id number] * POCT glucose (11/14/2024 4:41 AM POST DOCTORAL FELLOW) [facility] Glucose, POC 121 70 - 199 mg/dL Comment:Testing performed by : [address] [address] Glucose comment 1 Use This Result DAYANA Comment:Testing performed by : [address] [address] Blood 11/14/2024 4:41 AM POST DOCTORAL FELLOW 11/14/2024 4:41 AM POST DOCTORAL FELLOW Ivan Vargas MD LAB POCT ORDERABLES - DEVICE Final Result Performing Organization Address [facility] Co de Phone Number DYAANA [address] [address] * POCT glucose (11/13/2024 7:59 PM POST DOCTORAL FELLOW) Glucose, POC 155 70 - 199 mg/dL Comment:Testing performed by : [address] [address] Glucose comment 1 Use This Result DAYANA Comment:Testing performed by : [address] [address] Blood 11/13/2024 7:59 PM POST DOCTORAL FELLOW 11/13/2024 7:59 PM POST DOCTORAL FELLOW Result [facility] Ivan Vargas MD LAB POCT ORDERABLES - DEVICE Final Result Performing Organization Address [facility] de Phone Number DAYANA [address] [address] * POCT glucose (11/13/2024 5:16 PM POST DOCTORAL FELLOW) Glucose, POC 131 70 - 199 mg/dL Comment:Testing performed by : [address] [address] Glucose comment 1 Use This Result DAYANA Comment:Testing performed by : [address] [address] Glucose comment 2 RN/MD Notified DAYANA Comment:Testing performed by : [address] [address] Blood 11/13/2024 5:16 PM POST DOCTORAL FELLOW 11/13/2024 5:16 PM POST DOCTORAL FELLOW Ivan Vargas MD LAB POCT ORDERABLES - DEVICE Final Result DAYANA MH [address] [facility] Department [place] [address] * CT Knee Left WO Contrast (11/13/2024 4:52 PM POST DOCTORAL FELLOW) Anatomical Region Laterality Modality Lower Extremities Left Computed Tomog marquis 11/13/2024 5:29 PM POST DOCTORAL FELLOW Narrative 11/13/2024 5:36 PM POST DOCTORAL FELLOW EXAM DESCRIPTION: CT KNEE LEFT WO CONTRAST [...] Electronically signed by Ed Ny M.D. JA: BEHT Report ID: [id number] Reading Location: [id number] Procedure Note Ed Ny MD - 11/13/2024 [...] Ed Ny M.D. JA: BETH Report ID: [id number] Reading Location: [id number] us Ivan Vargas MD IMG CT PROCEDURES Final Resul t * US Chest (11/13/2024 2:21 PM POST DOCTORAL FELLOW) Anatomical Region Laterality Modality Chest N/A Ultrasound 11/13/2024 4:29 PM POST DOCTORAL FELLOW Narrative 11/13/2024 4:32 PM POST DOCTORAL FELLOW EXAM DESCRIPTION: US CHEST REASON FOR STUDY: Right pleural effusion, assess for loculations TECHNIQUE: A Dynamic assessment was performed of the right chest by the fruit stuffer, with selected grayscale images acquired and recorded [...] Will Stahl M.D. MZ: MZ Report ID: [id number] Reading Location: [place] [address] Procedure Note Will Stahl MD - 11/13/2024 EXAM DESCRIPTION: US CHEST REASON FOR STUDY: Right pleural effusion, assess for loculations TECHNIQUE: A Dynamic assessment was performed of the right chest by the fruit stuffer, with selected grayscale images acquired and recorded [...] Will Stahl M.D. MZ: MZ Report ID: [id number] Reading Location: [place] [address] us Ivan Vargas MD IM US PROCEDURES Final Resul t * POCT glucose (11/13/2024 2:13 PM POST DOCTORAL FELLOW) [facility] Signature Glucose, POC 127 70 - 199 mg/dL Comment:Testing performed by : [address] [address] Glucose comment 1 Use This Result DAYANA CARPIO Comment:Testing performed by : [address] [address] Glucose comment 2 RN/MD Notified DAYANA CARPIO Comment:Testing performed by : [address] [address] Blood 11/13/2024 2:13 PM POST DOCTORAL FELLOW 11/13/2024 2:13 PM POST DOCTORAL FELLOW Ivan Vargas MD LAB POCT ORDERABLES - DEVICE Final Result Performing Organization Address City/State/[facility] Co al Phone Number DAYANA [address] [facility] Department [place] [address] * FL Fluoro Guided Aspiration Knee Left (11/13/2024 1:30 PM POST DOCTORAL FELLOW) Anatomical Region Laterality Modality Knee Left Computed Radiogr aphy, Computed Radiography 11/13/2024 1:57 PM POST DOCTORAL FELLOW Narrative 11/13/2024 2:11 PM POST DOCTORAL FELLOW EXAM DESCRIPTION: FL FLUORO GUIDED ASPIRATION KNEE [...] Kedar Corrales M.D. MM: MM Report ID: [id number] Reading Location: [id number] Procedure Note Kedar Corrales MD - 11/13/2024 [...] Kedar Corrales M.D. MM: MM Report ID: [id number] Reading Location: [id number] Ivan Vargas MD IM FLUOROSCOPY PROCEDURES Fi nal Result * (ABNORMAL) eGFR (11/13/2024 9:02 AM POST DOCTORAL FELLOW) eGFR 34(L) >=60 mL/min/1. 73 m2 Comment: [...] was last reviewed 2021. Testing performed by: [address] [address] Blood 11/13/2024 9:02 AM POST DOCTORAL FELLOW 11/13/2024 10:02 AM POST DOCTORAL FELLOW us Ivan Vargas MD LAB BLOOD ORDERABLES Final Re sult DAYANA [address] [facility] Department [place] [address] * (ABNORMAL) Differential, auto (11/13/2024 9:02 AM POST DOCTORAL FELLOW) Neutrophil abs 4.3 1.5 - 6.5 K/cumm Comment:Testing performed by : [address] [address] Imm gran abs 0.0 0.0 - 0.1 K/cumm DAYANA Comment:Testing performed by : [address] [address] Lymphocyte abs 0.7(L) 0.8 - 3.3 K/cumm DAYANA Comment:Testing performed by : [address] [address] Monocyte abs 0.9(H) 0.2 - 0.8 K/cumm DAYANA Comment:Testing performed by : [address] [address] Eosinophil abs 0.4 0.0 - 0.5 K/cumm DAYANA Comment:Testing performed by : [address] [address] Basophil abs 0.1 0.0 - 0.1 K/cumm CERNIKOS Comment:Testing performed by : [address] [address] Neutrophil pct 66.9 % [facility] Comment: Interpretive Data Percent cell count reference ranges are not reported, since discordance with absolute values may lead to misinterpretation of CBC data. Current Interpretive Data was last revised on 2018. Testing performed by: [address] [address] Imm gran pct 0.6 % [facility] Comment: Interpretive Data Percent cell count reference ranges are not reported, since discordance with absolute values may lead to misinterpretation of CBC data. Current Interpretive Data was last revised on 2018. Testing performed by: [address] [address] Lymphocyte pct 11.6 % [facility] Comment: Interpretive Data Percent cell count reference ranges are not reported, since discordance with absolute values may lead to misinterpretation of CBC data. Current Interpretive Data was last revised on 2018. Testing performed by: [address] [address] Monocyte pct 14.3 % [facility] Comment: Interpretive Data Percent cell count reference ranges are not reported, since discordance with absolute values may lead to misinterpretation of CBC data. Current Interpretive Data was last revised on 2018. Testing performed by: [address] [address] Eosinophil pct 5.5 % CERNIKOS Comment: Interpretive Data Percent cell count reference ranges are not reported, since discordance with absolute values may lead to misinterpretation of CBC data. Current Interpretive Data was last revised on 2018. Testing performed by: [address] [address] Basophil pct 1.1 % [facility] Comment: Interpretive Data Percent cell count reference ranges are not reported, since discordance with absolute values may lead to misinterpretation of CBC data. Current Interpretive Data was last revised on 2018. Testing performed by: [address] [address] Blood 11/13/2024 9:02 AM POST DOCTORAL FELLOW 11/13/2024 10:03 AM POST DOCTORAL FELLOW us Ivan Vargas MD LAB BLOOD ORDERABLES Final Re sult DAYANA [address] [facility] Department [place] [address] * (ABNORMAL) CBC with auto differential (11/13/2024 9:02 AM POST DOCTORAL FELLOW) WBC 6.4 3.8 - 9.9 K/cumm Comment:Testing performed by : [address] [address] Hgb 8.4(L) 11.9 - 15.5 g/dL DAYANA Comment:Testing performed by : [address] [address] Hct 25.2(L) 35.6 - 45.5 % DAYANA Comment:Testing performed by : [address] [address] Plt 196 150 - 400 K/cumm DAYANA Comment:Testing performed by : [address] [address] MPV 10.5 9.1 - 12.3 fL DAYANA Comment:Testing performed by : [address] [address] RBC 2.52(L) 3.90 - 5.20 M/cumm DAYANA Comment:Testing performed by : [address] [address] MCV 100.0(H) 81.3 - 96.4 fL DAYANA Comment:Testing performed by : [address] [address] MCH 33.3 27.1 - 33.3 pg DAYANA CARPIO Comment:Testing performed by : [address] [address] MCHC 33.3 32.3 - 35.7 g/dL DAYANA CARPIO Comment:Testing performed by : [address] [address] RDW CV 16.8(H) 11.1 - 14.9 % DAYANA CARPIO Comment:Testing performed by : [address] [address] RDW SD 59.5(H) 35.7 - 48.1 fL DAYANA Comment:Testing performed by : [address] [address] NRBC abs 0.00 0.00 - 0.01 K/cumm DAYANA Comment:Testing performed by : [address] [address] Blood 11/13/2024 9:02 AM POST DOCTORAL FELLOW 11/13/2024 10:03 AM POST DOCTORAL FELLOW Ivan Vargas MD LAB BLOOD ORDERABLES Final Re sult Performing Organization Address City/[facility]/ZIP Co de Phone Number [address] [place] [address] * Magnesium (11/13/2024 9:02 AM POST DOCTORAL FELLOW) Pathologist [facility] Magnesium 1.5 1.4 - 2.5 mg/dL Comment:Testing performed by : [address] [address] Blood 11/13/2024 9:02 AM POST DOCTORAL FELLOW 11/13/2024 10:02 AM POST DOCTORAL FELLOW Ivan Vargas MD LAB BLOOD ORDERABLES Final Re sult [address] [address] * (ABNORMAL) Comprehensive metabolic panel (11/13/2024 9:02 AM POST DOCTORAL FELLOW) Sodium 135 135 - 145 mmol/L Comment:Testing performed by : [facility], [address] [place] [address]., [address] Potassium, pl 3.6 3.3 - 4.9 mmol/L [facility] Comment:Testing performed by : [facility], [address] [place] [address], [place]., [address] Chloride 92(L) 97 - 110 mmol/L [facility] Comment:Testing performed by : [address], [place]., [address] CO2 29 22 - 32 mmol/L [facility] Comment:Testing performed by : [address], [place]., [address] Anion gap 14 2 - 15 mmol/L [facility] Comment:Testing performed by : [address] [address] BUN 28(H) 6 - 25 mg/dL [facility] Comment:Testing performed by : [address] [address] Creatinine 1.60(H) 0.60 - 1.10 mg/dL [facility] Comment:Testing performed by : [address] [address] Glucose 114 70 - 199 mg/dL [facility] Comment: Interpretive Data Fasting glucose >/= [...] was last revised 2022. Testing performed by: [address] [address] Calcium 8.9 8.5 - 10.3 mg/dL [facility] Comment:Testing performed by : [address] [address] Bilirubin, total 1.5(H) 0.1 - 1.2 mg/dL [facility] Comment:Testing performed by : [address] [address] Protein, pl 5.7(L) 6.5 - 8.5 g/dL DAYANA Comment:Testing performed by : [address] [address] Albumin 3.3(L) 3.5 - 5.0 g/dL DAYANA Comment:Testing performed by : [address] [address] Alk phos 272(H) 40 - 130 Units/L DAYANA Comment:Testing performed by : [address], [place]., [address] ALT 19 7 - 45 Units/L DAYANA Comment:Testing performed by : [address] [address] AST 36 10 - 45 Units/L DAYANA Comment:Testing performed by : [address] [address] Blood 11/13/2024 9:02 AM POST DOCTORAL FELLOW 11/13/2024 10:02 AM POST DOCTORAL FELLOW Ivan Vargas MD LAB BLOOD ORDERABLES Final Re sult DAYANA [facility] Department of Laboratories [place], [place] [id number] * POCT glucose (11/13/2024 8:00 AM POST DOCTORAL FELLOW) [facility] Glucose, POC 128 70 - 199 mg/dL Comment:Testing performed by : [address] [address] Glucose comment 1 Use This Result DAYANA Comment:Testing performed by : [address] [address] Glucose comment 2 RN/MD Notified DAYANA Comment:Testing performed by : [address] [address] Blood 11/13/2024 8:00 AM POST DOCTORAL FELLOW 11/13/2024 8:00 AM POST DOCTORAL FELLOW Ivan Vargas MD LAB POCT ORDERABLES - DEVICE Final Result Performing Organization Address [facility] Co de Phone Number DAYANA [address] [place] [address] * Strep pneumoniae antigen, urine Urine (11/13/2024 12:28 AM POST DOCTORAL FELLOW) S. pneumoniae Ag Negative Negative Comment: Interpretive [...] on 2022 Urine 11/13/2024 12:2 8 AM POST DOCTORAL FELLOW 11/13/2024 2:18 AM POST DOCTORAL FELLOW Tino Lynne MD LAB MICROBIOLOGY - G ENERAL ORDERABLES Final Result Performing Organization Address [facility] de Phone Number MARY ALICE[address] [address] * Legionella antigen Urine (11/13/2024 12:28 AM POST DOCTORAL FELLOW) Legionella Ag Negative Negative Comment: Interpretive Data This test detects only Legionella pneumophila serogroup 1 antigen. Testing performed by [facility] ([phone]). Current interpretive data was last revised on 2020. Testing performed by: [facility], [address] [facility], [place]., [address] Urine 11/13/2024 12:2 8 AM POST DOCTORAL FELLOW 11/13/2024 3:19 AM POST DOCTORAL FELLOW Tino Lynne MD LAB MICROBIOLOGY - G ENERAL ORDERABLES Final Result Performing Organization Address City/[facility] Co de Phone Number MARY ALICE[address] [place] [address] * (ABNORMAL) POCT glucose (11/12/2024 10:04 PM POST DOCTORAL FELLOW) [facility] Signature Glucose, POC 207(H) 70 - 199 mg/dL Comment:Testing performed by : [facility], [address] [place] [address]., [address] Glucose comment 1 Use This Result DAYANA CARPIO Comment:Testing performed by : [facility], [address] [place] [address]., [address] Blood 11/12/2024 10:0 4 PM POST DOCTORAL FELLOW 11/12/2024 10:04 PM POST DOCTORAL FELLOW us Ivan Vargas MD LAB POCT ORDERABLES - DEVICE Final Result DAYANA CARPIO [address] [facility] Department [place] [address] * TRANSTHORACIC ECHO (TTE) COMPLETE W DOPPLER/CF WO CONTRAST (11/12/2024 4:14 PM POST DOCTORAL FELLOW) Anatomical Region Laterality Modality Ultrasound 11/12/2024 3:49 PM POST DOCTORAL FELLOW Narrative 11/12/2024 6:37 PM POST DOCTORAL FELLOW Adult Echocardiogram + ----- + :Name: LOU ISLAS Study Date: 11/12/2024 Status: MHE : : Patient Location: [address]^[id number]^MHeight: 65 in : : Weight: 179 lbBP: [...] Date: 11/12/2024Status: MHE : : Patient Location: [address]^[id number]^MHeight: 65 in : : : 179 lbBP: [...] 1 or 2 Views (11/12/2024 2:18 PM POST DOCTORAL FELLOW) Anatomical Region Laterality Modality Lower Extremities, Knee Left Computed Radiography 11/12/2024 3:15 PM POST DOCTORAL FELLOW Narrative 11/12/2024 3:19 PM POST DOCTORAL FELLOW EXAM DESCRIPTION: XR KNEE LEFT 1 OR [...] Juan Daily M.D. MF: SHARIFA Report ID: [id number] Reading Location: [place] [address] Procedure Note Juan Daily MD - 11/12/2024 [...] Juan Daily M.D. MF: SHARIFA Report ID: [id number] Reading Location: [id number] Ivan Vargas MD IMG XR PROCEDURES Final Resul t * POCT glucose (11/12/2024 12:11 PM POST DOCTORAL FELLOW) Glucose, POC 156 70 - 199 mg/dL Comment:Testing performed by : [address] [address] Glucose comment 1 Use This Result DAYANA Comment:Testing performed by : [address] [address] Blood 11/12/2024 12:1 1 PM POST DOCTORAL FELLOW 11/12/2024 12:11 PM POST DOCTORAL FELLOW Result [facility] Ivan Vargas MD LAB POCT ORDERABLES - DEVICE Final Result Performing Organization Address [facility] de Phone Number [address] [place] [address] * POCT glucose (11/12/2024 10:02 AM POST DOCTORAL FELLOW) [facility] Glucose, POC 125 70 - 199 mg/dL Comment:Testing performed by : [address] [address] Glucose comment 1 Use This Result DAYANA Comment:Testing performed by : [address] [address] Blood 11/12/2024 10:0 2 AM POST DOCTORAL FELLOW 11/12/2024 10:02 AM POST DOCTORAL FELLOW Ivan Vargas MD LAB POCT ORDERABLES - DEVICE Final Result Performing Organization Address City/[facility] Co de Phone Number [address] [place] [address] * (ABNORMAL) eGFR (11/12/2024 8:29 AM POST DOCTORAL FELLOW) [facility] eGFR 49(L) >=60 mL/min/1. 73 m2 [...] was last reviewed 2021. Testing performed by: [address] [address] Blood 11/12/2024 8:29 AM POST DOCTORAL FELLOW 11/12/2024 9:02 AM POST DOCTORAL FELLOW Tino Lynne MD LAB BLOOD ORDERABLES Final Result [facility] [address] [facility] Department [place] [address] * (ABNORMAL) Differential, auto (11/12/2024 8:29 AM POST DOCTORAL FELLOW) Neutrophil abs 5.0 1.5 - 6.5 K/cumm Comment:Testing performed by : [address] [address] Imm gran abs 0.1 0.0 - 0.1 K/cumm DAYANA Comment:Testing performed by : [address] [address] Lymphocyte abs 0.8 0.8 - 3.3 K/cumm DAYANA Comment:Testing performed by : [address] [address] Monocyte abs 0.9(H) 0.2 - 0.8 K/cumm DAYANA Comment:Testing performed by : [address] [address] Eosinophil abs 0.3 0.0 - 0.5 K/cumm [facility] Comment:Testing performed by : [address] [address] Basophil abs 0.1 0.0 - 0.1 K/cumm [facility] Comment:Testing performed by : [address] [address] Neutrophil pct 70.4 % [facility] Comment: Interpretive Data Percent cell count reference ranges are not reported, since discordance with absolute values may lead to misinterpretation of CBC data. Current Interpretive Data was last revised on 2018. Testing performed by: [address] [address] Imm gran pct 1.0 % [facility] Comment: Interpretive Data Percent cell count reference ranges are not reported, since discordance with absolute values may lead to misinterpretation of CBC data. Current Interpretive Data was last revised on 2018. Testing performed by: [address] [address] Lymphocyte pct 11.1 % [facility] Comment: Interpretive Data Percent cell count reference ranges are not reported, since discordance with absolute values may lead to misinterpretation of CBC data. Current Interpretive Data was last revised on 2018. Testing performed by: [address] [address] Monocyte pct 12.5 % [facility] Comment: Interpretive Data Percent cell count reference ranges are not reported, since discordance with absolute values may lead to misinterpretation of CBC data. Current Interpretive Data was last revised on 2018. Testing performed by: [address] [address] Eosinophil pct 4.1 % [facility] Comment: Interpretive Data Percent cell count reference ranges are not reported, since discordance with absolute values may lead to misinterpretation of CBC data. Current Interpretive Data was last revised on 2018. Testing performed by: [address] [address] Basophil pct 0.9 % [facility] Comment: Interpretive Data Percent cell count reference ranges are not reported, since discordance with absolute values may lead to misinterpretation of CBC data. Current Interpretive Data was last revised on 2018. Testing performed by: [address] [address] Blood 11/12/2024 8:29 AM POST DOCTORAL FELLOW 11/12/2024 9:03 AM POST DOCTORAL FELLOW Tino Lynne MD LAB BLOOD ORDERABLES Final Result [facility] [address] [facility] Department [place] [address] * (ABNORMAL) CBC with auto differential (11/12/2024 8:29 AM POST DOCTORAL FELLOW) Pathologist [facility] WBC 7.0 3.8 - 9.9 K/cumm Comment:Testing performed by : [address] [address] Hgb 8.7(L) 11.9 - 15.5 g/dL DAYANA Comment:Testing performed by : [address] [address] Hct 26.9(L) 35.6 - 45.5 % DAYANA Comment:Testing performed by : [address] [address] Plt 203 150 - 400 K/cumm DAYANA Comment:Testing performed by : [address] [address] MPV 10.4 9.1 - 12.3 fL DAYANA Comment:Testing performed by : [address] [address] RBC 2.68(L) 3.90 - 5.20 M/cumm DAYANA Comment:Testing performed by : [address] [address] MCV 100.4(H) 81.3 - 96.4 fL DAYANA Comment:Testing performed by : [address] [address] MCH 32.5 27.1 - 33.3 pg DAYANA CARPIO Comment:Testing performed by : [address] [place] [address] MCHC 32.3 32.3 - 35.7 g/dL DAYANA CARPIO Comment:Testing performed by : [address] [address] RDW CV 17.0(H) 11.1 - 14.9 % DAYANA CARPIO Comment:Testing performed by : [address] [address] RDW SD 59.2(H) 35.7 - 48.1 fL DAYANA CARPIO Comment:Testing performed by : [address] [address] NRBC abs 0.00 0.00 - 0.01 K/cumm DAYANA CARPIO Comment:Testing performed by : [address] [address] Blood 11/12/2024 8:29 AM POST DOCTORAL FELLOW 11/12/2024 9:03 AM POST DOCTORAL FELLOW Tino Lynne MD LAB BLOOD ORDERABLES Final Result DAYANA [facility] Department of Laboratories [place], [place] [id number] * (ABNORMAL) Comprehensive metabolic panel (11/12/2024 8:29 AM POST DOCTORAL FELLOW) Sodium 137 135 - 145 mmol/L Comment:Testing performed by : [address] [address] Potassium, pl 3.4 3.3 - 4.9 mmol/L DAYANA CARPIO Comment:Testing performed by : [address] [address] Chloride 94(L) 97 - 110 mmol/L DAYANA CARPIO Comment:Testing performed by : [address] [address] CO2 29 22 - 32 mmol/L DAYANA CARPIO Comment:Testing performed by : [address] [address] Anion gap 14 2 - 15 mmol/L DAYANA CARPIO Comment:Testing performed by : [address] [address] BUN 23 6 - 25 mg/dL [facility] Comment:Testing performed by : [address] [address] Creatinine 1.20(H) 0.60 - 1.10 mg/dL [facility] Comment:Testing performed by : [address] [address] Glucose 112 70 - 199 mg/dL [facility] Comment: Interpretive Data Fasting glucose >/= [...] was last revised 2022. Testing performed by: [address] [address] Calcium 9.3 8.5 - 10.3 mg/dL [facility] Comment:Testing performed by : [address] [address] Bilirubin, total 1.8(H) 0.1 - 1.2 mg/dL [facility] Comment:Testing performed by : [address] [address] Protein, pl 5.9(L) 6.5 - 8.5 g/dL [facility] Comment:Testing performed by : [address] [address] Albumin 3.5 3.5 - 5.0 g/dL [facility] Comment:Testing performed by : [address] [address] Alk phos 297(H) 40 - 130 Units/L [facility] Comment:Testing performed by : [address] [address] ALT 21 7 - 45 Units/L [facility] Comment:Testing performed by : [address] [address] AST 46(H) 10 - 45 Units/L DAYANA Comment:Testing performed by : [facility], [address] [place] [address]., [address] Blood 11/12/2024 8:29 AM POST DOCTORAL FELLOW 11/12/2024 9:02 AM POST DOCTORAL FELLOW Tino Lynne MD LAB BLOOD ORDERABLES Final Result Performing Organization Address [facility] Co de Phone Number DAYANA [address] [address] * POCT glucose (11/12/2024 3:01 AM POST DOCTORAL FELLOW) Pathologist [facility] Glucose, POC 118 70 - 199 mg/dL Comment:Testing performed by : [address] [address] Glucose comment 1 Use This Result DAYANA Comment:Testing performed by : [facility], [address] [place] [address]., [address] Blood 11/12/2024 3:01 AM POST DOCTORAL FELLOW 11/12/2024 3:01 AM POST DOCTORAL FELLOW Tino Lynne MD LAB POCT ORDERABLES - DEVICE Final Result Performing Organization Address [facility] de Phone Number [address] [address] * Blood culture Blood Peripheral (11/11/2024 9:45 PM POST DOCTORAL FELLOW) Report Final Report: No growth Comment:Testing performed by : [facility], [address] [facility], [place]., [address] Blood (Peripheral) 11/11/2024 9:45 PM POST DOCTORAL FELLOW 11/12/2024 1:21 AM POST DOCTORAL FELLOW Narrative DAYANA - 11/16/2024 7:00 AM POST DOCTORAL FELLOW From a different site than #1. Draw [...] performance characteristics have been verified by the [facility]biology [facility]. For questions about this culture, contact the Microbiology Laboratory at [phone]. Interpretive data was last revised on 24. us Bravo Chino MD LAB MICROBIOLOGY - GEN ERAL ORDERABLES Final Result DAYANA CARPIO [address] [facility] Department [place] [address] * Blood culture Blood Peripheral (11/11/2024 9:45 PM POST DOCTORAL FELLOW) Report Final Report: No growth Comment:Testing performed by : [facility], [address] [place] [address] Blood (Peripheral) 11/11/2024 9:45 PM POST DOCTORAL FELLOW 11/12/2024 1:22 AM POST DOCTORAL FELLOW Kaye CARPIO - 11/16/2024 7:00 AM POST DOCTORAL FELLOW Draw Blood cultures before administration of Antibiotics [...] performance characteristics have been verified by the [facility]biology [facility]. For questions about this culture, contact the Microbiology Laboratory at [phone]. Interpretive data was last revised on 24. us Bravo Chino MD LAB MICROBIOLOGY - GEN ERAL ORDERABLES Final Result DAYANA [facility] Department [place] [address] * CT Chest Abdomen Pelvis WO Contrast (11/11/2024 8:07 PM POST DOCTORAL FELLOW) Anatomical Region Laterality Modality Body N/A Computed Tomogra phy 11/11/2024 8:12 PM POST DOCTORAL FELLOW Narrative 11/11/2024 8:29 PM POST DOCTORAL FELLOW EXAM DESCRIPTION: CT CHEST ABDOMEN PELVIS WO CONTRAST REASON FOR STUDY: fluid overload, CHF, possible cirrhosis Pt c/o increasing swelling to bilateral lower extremities that is spreading to lower abd x approx 3 weeks. Pt currently in long-term for rehab d/t recent hospital admission for [...] in the right lower lobe dependently. PLEURA: Yikos-fx-vphmbvtr right pleural effusion is present. MEDIASTINUM/JETT: No [...] streak artifact. OTHER: No significant abnormality. IMPRESSION: Kpist-di-lakatigy right pleural effusion with right lower lobe consolidation. Small patchy areas of density in the right upper and lower lobes may be infectious or inflammatory. Short-term follow-up is recommended. Small pericardial effusion. Hepatic cirrhosis. Cholelithiasis. Diffuse atherosclerotic disease. THIS IS AN ELECTRONICALLY VERIFIED FINAL REPORT 11/11/2024 8:29 PM - Electronically signed by Pedro De La Vega M.D. KH: MADHAV Report ID: [id number] Reading Location: [place] [address] Procedure Note Pedro De La Vega MD - 11/11/2024 EXAM DESCRIPTION: CT CHEST ABDOMEN PELVIS WO CONTRAST REASON FOR STUDY: fluid overload, CHF, possible cirrhosis Pt c/o increasing swelling to bilateral lower extremities that isspreading to lower abd x approx 3 weeks. Pt currently in long-term for rehab d/[facility] for similar complaints/ sepsis in [...] in the right lower lobe dependently. PLEURA: Tkpfw-rf-taiehydd right pleural effusion is present. MEDIASTINUM/JETT: No [...] streak artifact. OTHER: No significant abnormality. IMPRESSION: Aqgab-dg-bgjzyxmn right pleural effusion with right lower lobeconsolidation. Small patchy areas of density in the right upper and lower lobes may be infectious or inflammatory. Short-term follow-up is recommended. Small pericardial effusion. Hepatic cirrhosis. Cholelithiasis. Diffuse atherosclerotic disease. THIS IS AN ELECTRONICALLY VERIFIED FINAL REPORT 11/11/2024 8:29 PM - Electronically signed by Pedro De La Vega M.D. KH: MADHAV Report ID: [id number] Reading Location: [id number] us Bravo Chino MD IMG CT PROCEDURES Manda l Result * XR Chest 1 Vw Portable (if patient condition/safety warrant portable) (11/11/2024 5:30 PM POST DOCTORAL FELLOW) Anatomical Region Laterality Modality Body, Chest N/A Computed Radiogr aphy 11/11/2024 6:12 PM POST DOCTORAL FELLOW Narrative 11/11/2024 6:12 PM POST DOCTORAL FELLOW EXAM DESCRIPTION: XR CHEST 1 VIEW REASON FOR STUDY: Shortness of breath Pt c/o increasing swelling to bilateral lower extremities that is spreading to lower abd x approx 3 weeks. Pt currently in long-term for rehab d/t recent hospital admission for [...] Eric Larson M.D. AG: CAM Report ID: [id number] Reading Location: [id number] Procedure Note Eric Larson MD - 11/11/2024 EXAM DESCRIPTION: XR CHEST 1 VIEW REASON FOR STUDY: Shortness of breath Pt c/o increasing swelling to bilateral lower extremities that isspreading to lower abd x approx 3 weeks. Pt currently [place] d[place]/ sepsis in [...] Eric Larson M.D. AG: CAM Report ID: [id number] Reading Location: [id number] us Bravo Chino MD IMG XR PROCEDURES Manda l Result * Sepsis Lactate w/ Reflex (11/11/2024 5:10 PM POST DOCTORAL FELLOW) Sepsis Lactate 1.6 0.7 - 2.0 mmol/L Comment:Testing performed by : [facility], [address] [place] [address]., [address] Blood 11/11/2024 5:10 PM POST DOCTORAL FELLOW 11/11/2024 5:16 PM POST DOCTORAL FELLOW Bravo Chino MD LAB BLOOD ORDERABLES F inal Result DAYANA [address] [facility] Department [place] [address] * (ABNORMAL) eGFR (11/11/2024 5:10 PM POST DOCTORAL FELLOW) Pathologist [facility] eGFR 43(L) >=60 mL/min/1. 73 m2 Comment: [...] was last reviewed 2021. Testing performed by: [address] [address] Blood 11/11/2024 5:10 PM POST DOCTORAL FELLOW 11/11/2024 5:16 PM POST DOCTORAL FELLOW us Gloria Steen NP LAB BLOOD ORDERABLES Final Resul t DAYANA [address] [facility] Department [place] [address] * (ABNORMAL) Differential, auto (11/11/2024 5:10 PM POST DOCTORAL FELLOW) [facility] Neutrophil abs 4.9 1.5 - 6.5 K/cumm Comment:Testing performed by : [address] [address] Imm gran abs 0.1 0.0 - 0.1 K/cumm DAYANA Comment:Testing performed by : [address] [address] Lymphocyte abs 0.7(L) 0.8 - 3.3 K/cumm [facility] Comment:Testing performed by : [address] [address] Monocyte abs 0.9(H) 0.2 - 0.8 K/cumm [facility] Comment:Testing performed by : [address] [address] Eosinophil abs 0.2 0.0 - 0.5 K/cumm [facility] Comment:Testing performed by : [address], [place]., [address] Basophil abs 0.1 0.0 - 0.1 K/cumm [facility] Comment:Testing performed by : [address] [address] Neutrophil pct 71.4 % [facility] Comment: Interpretive Data Percent cell count reference ranges are not reported, since discordance with absolute values may lead to misinterpretation of CBC data. Current Interpretive Data was last revised on 2018. Testing performed by: [address] [address] Imm gran pct 1.0 % [facility] Comment: Interpretive Data Percent cell count reference ranges are not reported, since discordance with absolute values may lead to misinterpretation of CBC data. Current Interpretive Data was last revised on 2018. Testing performed by: [address] [address] Lymphocyte pct 10.8 % [facility] Comment: Interpretive Data Percent cell count reference ranges are not reported, since discordance with absolute values may lead to misinterpretation of CBC data. Current Interpretive Data was last revised on 2018. Testing performed by: [address] [address] Monocyte pct 13.0 % [facility] Comment: Interpretive Data Percent cell count reference ranges are not reported, since discordance with absolute values may lead to misinterpretation of CBC data. Current Interpretive Data was last revised on 2018. Testing performed by: [address] [address] Eosinophil pct 3.1 % [facility] Comment: Interpretive Data Percent cell count reference ranges are not reported, since discordance with absolute values may lead to misinterpretation of CBC data. Current Interpretive Data was last revised on 2018. Testing performed by: [address] [address] Basophil pct 0.7 % DAYANA CARPIO Comment: Interpretive Data Percent cell count reference ranges are not reported, since discordance with absolute values may lead to misinterpretation of CBC data. Current Interpretive Data was last revised on 2018. Testing performed by: [facility], [address] [place] [address]., [address] Blood 11/11/2024 5:10 PM POST DOCTORAL FELLOW 11/11/2024 5:16 PM POST DOCTORAL FELLOW us Gloria Steen NP LAB BLOOD ORDERABLES Final Resul t DAYANA CARPIO [address] [facility] [place] [address] * (ABNORMAL) Pro B-type natriuretic peptide (11/11/2024 5:10 PM POST DOCTORAL FELLOW) NT-proBNP 5,728(H) <=300 pg/mL Comment: Interpretive Comments: [...] Last Revised Date: 2018. Testing performed by: [address] [address] Blood 11/11/2024 5:10 PM POST DOCTORAL FELLOW 11/11/2024 5:16 PM POST DOCTORAL FELLOW us Bravo Chino MD LAB BLOOD ORDERABLES F inal Result [facility] Department of Laboratories [place], [place] [id number] * (ABNORMAL) CBC with auto differential (11/11/2024 5:10 PM POST DOCTORAL FELLOW) WBC 6.9 3.8 - 9.9 K/cumm Comment:Testing performed by : [address] [address] Hgb 9.3(L) 11.9 - 15.5 g/dL DAYANA CARPIO Comment:Testing performed by : [address] [address] Hct 28.3(L) 35.6 - 45.5 % DAYANA CARPIO Comment:Testing performed by : [address] [address] Plt 209 150 - 400 K/cumm DAYANA CARPIO Comment:Testing performed by : [address] [address] MPV 10.3 9.1 - 12.3 fL DAYANA CARPIO Comment:Testing performed by : [address] [address] RBC 2.84(L) 3.90 - 5.20 M/cumm DAYANA CARPIO Comment:Testing performed by : [address] [address] MCV 99.6(H) 81.3 - 96.4 fL [facility]ANA Comment:Testing performed by : [address] [address] MCH 32.7 27.1 - 33.3 pg DAYANA CARPIO Comment:Testing performed by : [address] [address] MCHC 32.9 32.3 - 35.7 g/dL DAYANA Comment:Testing performed by : [address] [address] RDW CV 17.0(H) 11.1 - 14.9 % [facility] Comment:Testing performed by : [address] [address] RDW SD 59.6(H) 35.7 - 48.1 fL DAYANA CARPIO Comment:Testing performed by : [address] [address] NRBC abs 0.00 0.00 - 0.01 K/cumm DAYANA Comment:Testing performed by : [address] [address] Blood 11/11/2024 5:10 PM POST DOCTORAL FELLOW 11/11/2024 5:16 PM POST DOCTORAL FELLOW us Bravo Chino MD LAB BLOOD ORDERABLES F inal Result [facility] [address] [facility] Department of Laboratories [place], [place] [id number] * (ABNORMAL) Comprehensive metabolic panel (11/11/2024 5:10 PM POST DOCTORAL FELLOW) Sodium 136 135 - 145 mmol/L Comment:Testing performed by : [address] [address] Potassium, pl 3.6 3.3 - 4.9 mmol/L DAYANA CARPIO Comment: Hemolyzed; Potassium value may be falsely elevated by as much as 1.0 mmol/L. Suggest redraw and reanalysis. Testing performed by: [address] [address] Chloride 93(L) 97 - 110 mmol/L [facility] Comment:Testing performed by : [address] [address] CO2 32 22 - 32 mmol/L [facility] Comment:Testing performed by : [address] [address] Anion gap 11 2 - 15 mmol/L [facility] Comment:Testing performed by : [address] [address] BUN 23 6 - 25 mg/dL [facility] Comment:Testing performed by : [address] [address] Creatinine 1.32(H) 0.60 - 1.10 mg/dL [facility] Comment:Testing performed by : [address] [address] Glucose 170 70 - 199 mg/dL [facility] Comment: Interpretive Data Fasting glucose >/= [...] was last revised 2022. Testing performed by: [address] [address] Calcium 9.6 8.5 - 10.3 mg/dL [facility] Comment:Testing performed by : [address] [address] Bilirubin, total 1.9(H) 0.1 - 1.2 mg/dL [facility] Comment:Testing performed by : [address] [address] Protein, pl 6.3(L) 6.5 - 8.5 g/dL [facility] Comment:Testing performed by : [address] [address] Albumin 3.6 3.5 - 5.0 g/dL DAYANA Comment:Testing performed by : [facility], [address] [place] [address]., [address] Alk phos 337(H) 40 - 130 Units/L [facility] Comment:Testing performed by : [address] [address] ALT 30 7 - 45 Units/L [facility] Comment:Testing performed by : [address] [address] AST 73(H) 10 - 45 Units/L [facility] Comment: Hemolyzed; result may be falsely elevated Testing performed by: [address] [address] Blood 11/11/2024 5:10 PM POST DOCTORAL FELLOW 11/11/2024 5:16 PM POST DOCTORAL FELLOW Bravo Chino MD LAB BLOOD ORDERABLES F inal Result [facility] [address] [facility] Department [place] [address] * Cardiology Document Scan (11/01/2024 10:08 AM POST DOCTORAL FELLOW) Anatomical Region Laterality Modality Other Bridget Nicholson NP CV CARDIAC SERVICES PROCEDUR ES Final Result * Cardiology Document Scan (10/31/2024 9:21 AM POST DOCTORAL FELLOW) Anatomical Region Laterality Modality Other us Jc Schaffer MD CV CARDIAC SERVICES PROCEDURES F inal Result * POCT lipid panel (11/15/2023 2:47 PM POST DOCTORAL FELLOW) Cholesterol, POC 146 mg/dL Comment:GLU = 90 HDL, POC 58 mg/dL Triglycerides, POC 87 mg/dL LDL Cholesterol POC 70 mg/dL Chol/HDL Ratio, POC 1.2 Non-HDL Cholesterol, POC 88 mg/dL Cholesterol Total, POC 146 mg/dL Capillary blood 11/15/2023 2 :47 PM POST DOCTORAL FELLOW Bridget Nicholson NP POINT OF CARE TEST ORDERABLE S Final Result from Last 3 Months or Most Recently Relevant to Health Maintenance Insurance MEDICARE [employer] SENIOR SUPPLEMENT Advance Directives For more information, please contact: [phone] Documents on File Type Date Recorded Patient Sign Language Instructor Expl anation ADVANCE DIRECTIVE 11/13/2024 3:42 PM Power of Racquet Maker-Medical * Full Code (Latest Code Status on File) Date Activated Date Inactivated Comments 11/12/2024 2:31 AM 11/20/2024 10:35 PM Care Teams Crime Scene Technician Relationship Specialty Start Date End Date Ghanshyam Ruiz NP [address] [place] [id number] PCP - General Nurse Practitioner 09/03/24 Augustus Birch MD [address] [facility] [address] [address] Internal Medicine 04/17/19
--- OUTSIDE RECORDS SUMMARY | 2025-01-16 11:23 | XMS_ITS | Clinical Summary ---
Author Organization [facility] Address [address] [place] [address] Care Team Providers Care Ui Engineer Name Role Phone Dariel Horvath DO Primary Care Provider [phone] Source Comments [facility],non-owned Affiliates and Associated Physician Practices is amultiple site organization consisting of ambulatory clinics and hospital sitesin [place], [place], [place] and [place]. This disclosure is being madepursuant to the Care Everywhere program and may not contain all information available regarding this patient. 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 Height 165.1 cm (5' 5 ) 06/24/2021 [...] this topic Medical Devices Implanted Type Area Manager Case Management Device Identifier Shelf Expiration Date Model / Serial / Lot 8.0mm Cannulated Locking Screw Implanted:Qty: 1 on 05/31/2021 by Mary Ann Elkins MD at [facility] Left: Leg [id number] / / Plate 6 Hl Lck Precontr Fem Lt Dist Implanted:Qty: 1 on 05/31/2021 by Mary Ann Elkins MD at [facility] Left: Leg [employer] 06/24/2028 [id number] / / 5.5mm Dt Poly Locking Screws Implanted:Qty: 2 on 05/31/2021 by Mary Ann Elkins MD at [facility] Left: Leg [employer] [id number] / / 5.5mm Ft Poly Locking Screws Implanted:Qty: 2 on 05/31/2021 by Mary Ann Elkins MD at [facility] Left: Leg [id number] / / 4.5mm Solid Cortical Bone Screw Implanted:Qty: 1 on 05/31/2021 by Mary Ann Elkins MD at [facility] Left: Leg [id number] / / 4.5 Solid Cortical Bone Screw Implanted:Qty: 1 on 05/31/2021 by Mary Ann Elkins MD at [facility] Left: Leg [id number] / / 4.5 Solid Cortical Bone Screw Implanted:Qty: 1 on 05/31/2021 by Mary Ann Elkins MD at [facility] Left: Leg [id number] / / 4.5 Solid Cortical Bone Screw Implanted:Qty: 1 on 05/31/2021 by Mary Ann Elkins MD at [facility] Left: Leg [id number] / / Explanted Type Area Manager Case Management Device Identifier Shelf Expiration Date Model / Serial / Lot Wire K 1.6mm 150mm 1 End Troc Pnt Ss Sm Explanted:Qty: 1 on 05/31/2021 by Mary Ann Elkins MD at [facility] Left: Leg [employer] [id number] / / 5.5mm Non-Locking Screws Explanted:Qty: 1 on 05/31/2021 by Mary Ann Elkins MD at [facility] Left: Leg [id number] / / 4.5 Solid Cortical Bone Screw Explanted:Qty: 1 on 05/31/2021 by Mary Ann Elkins MD at [facility] Left: Leg [id number] / / Procedures Procedure Name Priority Date/Time Associated Diagnosis Comments COMPREHENSIVE METABOLIC PANEL AM Draw 06/04/2021 1:24 AM CDT HEMOGLOBIN A1C DIOMEDES 05/31/2021 3:39 AM CDT from Last 3 Months or Most Recently Relevant to Health Maintenance Results * (ABNORMAL) COMPREHENSIVE METABOLIC PANEL (06/04/2021 1:24 AM CDT) BUN 14 7 - 26 mg/dL 06/04/2021 2:51 AM [facility] Creatinine 1.13(H) 0.56 - 0.96 mg/dL 06/04/2021 2:51 AM [facility] Sodium 130(L) 136 - 145 mmol/L 06/04/2021 2:51 AM [facility] Potassium 4.1 3.5 - 4.5 mmol/L 06/04/2021 2:51 AM [facility] Chloride 98 98 - 107 mmol/L 06/04/2021 2:51 AM [facility] CO2 24 22 - 29 mmol/L 06/04/2021 2:51 AM [facility] Glucose 138(H) 70 - 115 mg/dL 06/04/2021 2:51 AM [facility] Calcium 8.5 8.4 - 10.2 mg/dL 06/04/2021 2:51 AM [facility] Protein Total 5.4(L) 6.0 - 8.3 g/dL 06/04/2021 2:51 AM [facility] Albumin 2.8(L) 3.4 - 5.0 g/dL 06/04/2021 2:51 AM [facility] Bilirubin Total 1.0 0.2 - 1.2 mg/dL 06/04/2021 2:51 AM [facility] Alkaline Phosphatase 284(H) 40 - 150 U/L 06/04/2021 2:51 AM [facility] ALT 13 5 - 55 U/L 06/04/2021 2:51 AM [facility] AST 33 5 - 34 U/L 06/04/2021 2:51 AM [facility] Anion Gap 12 8 - 18 06/04/2021 2:51 AM [facility] BUN/Creatinine Ratio 12 7 - 23 06/04/2021 2:51 AM [facility] Osmolality Calculated 273 270 - 300 mOsm/kg 06/04/2021 2:51 AM [facility] Albumin/Globulin Ratio 1.1 1.1 - 2.3 06/04/2021 2:51 AM [facility] eGFR by CKD-EPI 50(L) >=90 mL/min/1.7 3 m2 06/04/2021 2:51 AM [facility] Blood BLOOD SPECIMEN / Unknown Lab Venipuncture / Unknown 06/04/2021 1:24 AM CDT 06/04/2021 2:15 AM T Janene Sampson PA-C LAB - CHEMISTRY HELADIO Navarro Organization Address City/State/ZIP Co de Phone Number [facility] [address] [place] [address], [facility] [phone] * HEMOGLOBIN A1C (05/31/2021 3:39 AM T) Hemoglobin A1c 5.4 4.4 - 6.3 % 05/31/2021 10:18 AM [facility] Estimated Average Glucose 108 mg/dL 05/31/2021 10:18 AM CDT [facility] Comment: HbA1c Interpretation: Treatment target values recommended by ADA and other clinical organizations should be used to evaluate metabolic control in patients. Treatment Target Values: Normal : < 5.7% Pre-diabetes: 5.7-6.4% Diabetes: Equal to or greater than 6.5% Reference: [place] Diabetes Association Standards of Care in Diabetes -2014 In patients 70 years and older consider HbA1c target range of 7.0-7.5% Reference: Diabetes Mellitus in Older People: Position Statement on behalf of the International Association of Gerontology and Geriatrics (IAGG), the Diabetes Working Alliance Party for Older People (EDWPOP), and the International Task Force of Experts in Diabetes. Phu Pisano, et al. J [employer] Medical [employer] Association. 2012 Test results diagnostic of diabetes should be repeated for confirmation. The Sebia Capillary 2 assay for the measurement of HbA1c is a National Glycohemoglobin Standardization Program (NGSP)certified method. Blood BLOOD SPECIMEN / Unknown Venipuncture / Unknown 05/31/2021 3:39 AM CDT 05/31/2021 3:46 AM CDT Raheel Erazo MD LAB - CHEMISTRY HELADIO NICHO[facility] Organization Address City/State/ZIP Co de Phone Number [facility] [address] [place] [address], [facility] [phone] from Last 3 Months or Most Recently Relevant to Health Maintenance Advance Directives * Full Code (Latest Code Status on File) Date Activated Date Inactivated Comments 05/31/2021 12:14 AM 06/04/2021 6:44 PM Care Teams Ui Engineer Relationship Specialty Start Date End Date Dariel Horvath DO [address] [facility] [address] [place], [place] [id number] PCP - General Internal Medicine 05/30/21
[2025-01-16 11:24] LABS: Basophils Absolute Auto 0.1 K/mm3 (0.0-0.1); Basophils Percent Auto 0.7 % (0.2-1.2); Eosinophils Absolute Auto 0.5 K/mm3 (0-0.3); Eosinophils Percent Auto 6.8 % (0-4.4); Hematocrit 25.8 % (37.0-47.0); Hemoglobin 8.1 g/dL (12.0-15.0); Immature Granulocyte Absolute 0.05 K/mm3 (0.00-0.031); Immature Granulocyte Percent A 0.7 % (0-0.5); Lymphocytes Absolute Auto 0.65 K/mm3 (0.9-3.2); Lymphocytes Percent Auto 9.1 % (18.3-44.2); Mean Corpuscular HGB Conc 31.4 g/dl (32-36); Mean Corpuscular Hemoglobin 30.9 pg (26-34); Mean Corpuscular Volume 98.5 fl (80-100); Mean Platelet Volume 10.6 fl (7.4-10.4); Monocytes Absolute Auto 0.7 K/mm3 (0.1-0.6); Monocytes Percent Auto 9.3 % (2.6-8.5); Neutrophils Absolute Auto 5.3 K/mm3 (1.3-6.7); Neutrophils Percent Auto 73.4 % (45.5-73.1); Platelet Count Result 225 k/mm3 (150-375); Red Blood Count 2.62 M/mm3 (4.2-5.4); White Blood Count 7.2 K/mm3 (4.5-10.0)
[2025-01-16 11:33] LABS: Lactic Acid Reflex 1.3 mmol/L (0.7-2.0)
[2025-01-16 11:39] LABS: Alanine Aminotransferase 20 U/L (6-35); Albumin Level 2.8 g/dL (3.5-5.1); Alkaline Phosphatase 339 U/L (38-126); Anion Gap 9 mmol/L (4-12); Aspartate Amino Transferase 25 U/L (14-36); Bilirubin,Total 0.9 mg/dL (0.2-1.3); Blood Urea Nitrogen 28 mg/dL (7-17); Carbon Dioxide 22 mmol/L (22-30); Chloride 100 mmol/L (98-107); Estimated CRCL calculation 36 ml/min; Estimated Glomerular Filt Rate 36; Glucose 102 mg/dL (65-110); Potassium 4.3 mmol/L (3.4-5.0); Sodium 131 mmol/L (137-145)
[2025-01-16 11:43] LABS: NT Pro B Type Natriuretic Pept 8740 pg/mL (19.9-100)
[2025-01-16] MEDS: ALBUMIN HUMAN 25% 25 GM/100 ML 100 ML IVPB ×3 (11:55→23:41)
[2025-01-16 11:56] LABS: Add Urine Microscopic? NO; Appearance Urine Clear (Clear); Bilirubin Urine Negative (Negative); Blood Urine Negative (Negative); Color Urine Yellow (Yellow); Glucose Urine UA 1+ mg/dL (Negative); Ketones Urine Negative (Negative); Leukocyte Esterase Ur Negative LEU/UL (Negative); Nitrate Urine Negative (Negative); Protein Urine Negative (Negative); Specific Grav Ur 1.011 (1.001-1.035); Urobilinogen Urine 0.2 mg/dL (<2.0); pH Urine 5.5 (5.0-9.0)
[2025-01-16 11:59] LABS: Erythrocyte Sedimentation Rate 79 mm/hr (0-20)
[2025-01-16 12:13] LABS: CRP 5.2 mg/dL (<1.0)
[2025-01-16] MEDS: MIDODRINE HCL 10 MG TABLET PO (14:27)
[2025-01-16] MEDS: ALBUMIN HUMAN 5% 25 GM/500 ML BTL IV CONT (15:04)
[2025-01-16 15:23] LABS: INR 1.3; Prothrombin Time 16.3 Seconds (11.1-14.7)
[2025-01-16 15:24] LABS: Partial Thromboplastin Time 38.6 Seconds (22.3-36.8)
--- NOTE | 2025-01-16 15:35 | PM.IMHP ---
H&P: HPI History of Present Illness Date/Time: 01/16/25 15:35 Chief Complaint: Fall Narrative: 69 y/o F with PMH of cirrhosis, alcohol abuse, diastolic dysfunction, diabetes, chronic hyponatremia, chronic anemia, and chronic venous insufficiency with lipodermatosclerosis of the bilateral lower extremities. The patient presents here from home via EMS for further evaluation after a ground level fall. She reports she was attempting to transfer into a wheelchair when she misjudged the distance causing the fall. Fell onto her left side and her left leg was then bent an awkward position. She did not have a head strike or loss of consciousness. She was unable to get herself up off the ground due to weakness and pain in her left lower extremity. EMS was called for a lift assist, patient declined transport at that time. She currently has home health two days per week, they arrived today and noted she was unable to bear weight on the left leg prompting a 2nd call to EMS. She has a recent history of a closed medial tibial plateau fracture on 11/11/2024. She was originally placed in a knee immobilizer in full extension and was residing at a [facility] for rehab. She followed up with her orthopedist through [facility] on 12/26/2024, during this visit her knee immobilizer was discontinued and she was made weight-bearing as tolerated and instructed to continue outpatient physical therapy. She was then discharged home from [facility] on 01/07. Since arrival back home she reports she has began having increasing lower extremity edema and swelling in her abdomen. She called her telecommunication tower technician earlier this week and reported these findings, they recommended increasing her Lasix from 40 mg -> 80 mg x4 days (tomorrow, Monday is day 4). She denies associated chest pain, shortness of breath, leg pain, or abdominal pain. She additionally reports a sacral pressure ulcer and a ulceration to her right heel which she has followed with wound care previously. Denies drainage, fever, chills, or body aches. She also followed with vascular outpatient on 12/26/2024 who attributed swelling to uncontrolled edema, chronic venous insufficiency, and her being minimally ambulatory versus peripheral artery disease. Recommended continued compression and local wound care. Initial VS at presentation: 97.6? F, HR 80, RR 15, 88/46, and 100% on RA. ED workup showed: No leukocytosis, hemoglobin 8.1 (at baseline), INR 1.3, sodium 131, creatinine 1.45 and GFR 36 (at baseline), CRP 5.2, BNP 8740, albumin 2.8, and UA showed 1+ glucose. Ultrasound of the BLE showed no DVT. CXR showed mild interstitial edema and small right pleural effusion. Knee XR showed a medial tibial plateau fracture without significant depression. CT of the abdomen/pelvis showed prominence of the common bile duct with a 4 mm stone in the distal common bile duct, multiple calcifications had been identified within the ivan hepaticus on prior studies without definitive ductal obstruction and present on the current examination secondary to positioning and technique, remaining findings within the lower chest abdomen and pelvis are chronic and unchanged (see report for details). Knee CT showed [place]ell near subarticular sclerosis underlying the significant portion of the medial tibial plateau without evidence of acute appearing fracture line or associated marrow edema which could represent either chronic osteochondral lesions/bone infarct or old fracture. Review of Systems Review of Systems: All systems reviewed & are unremarkable except as noted in HPI and below PMFSH Past Medical History Medical History Alcoholic cirrhosis of liver Chronic venous insufficiency of lower extremity Stage 3a chronic kidney disease Shingles ANTHONY (obstructive sleep apnea) Osteoporosis Gram-negative bacteremia Anemia of chronic disease Ascites Obesity (BMI 30-39.9) Hyperlipidemia, unspecified Carotid artery disease Alcohol abuse Osteoarthritis Diastolic dysfunction ECHO 10/2023: normal LV systolic function, estimated EF of 60-65%, abnormal diastolic dysfunction. Left-sided carotid artery disease US 01/2021: 50 to 69% stenosis of the left ICA. Orthostatic hypotension on midodrine, chronic hypotension, previously caused syncope and frequent falls and subsequent fractures. Insulin dependent type 2 diabetes mellitus A1C 5.1% 08/2024 Hypertension Chronic hyponatremia Eczema Periprosthetic fracture of femur following total replacement of hip (01/2020) Non operative treatment. GERD (gastroesophageal reflux disease) Surgical History Surgical History Status post open reduction with internal fixation of fracture (05/30/21) ORIF of comminuted intra-articular fracture of the distal left femur, done at [facility]. History of hysterectomy (2005) Due to uterine fibroids and endometriosis. History of bilateral cataract extraction History of lumbar surgery (2006) L1-L3. History of right hip replacement (2005) Per Dr. Curiel in [place]. Family History Family History Father Heart attack Mother Diabetes mellitus COPD (chronic obstructive pulmonary disease) Hypertension Afib Sibling Amputation above knee Diabetes mellitus Father , At age 50 Acute myocardial infarction Sibling , At age 50 Pancreatic cancer Social History Social History Social History: The patient lives in her own home in [place]. She has been twice, her 1st and she has since her 2nd . She has no children. She moved to this area within the last couple of years from [place] to be close to her 3 remaining siblings. She worked from home for a [employer] doing [employer] and she has a master's degree in statistics. She has recently retired.She smoked up to 2 packs of cigarettes a day before quitting in 2005. She drinks 2 mixed drinks a day, each containing a shot of vodka which equals out to about 1 L to 1.7 L of vodka a week. She denies illicit substance use. Surrogate decision maker: Miladys Jensen, sister. Code status: Full code. Smoking packs per day: 2 Smoking cigarettes per day: 40.0 Years smoked: 30 Smoking pack-years: 60.00 Smoking status: Former smoker Smokeless tobacco user: chewing tobacco Second hand tobacco smoke exposure: Yes Alcohol intake: current Drinks per week: 14 Substance use: never Substance use type: does not use Do You Feel Safe in your Home?: Yes Lack of Transportation: No Lack of Food: Never True Current Housing: I Have Housing Concerned About Future Housing: No Difficulty Paying Gas/Electric Bills: No Difficulty Paying for Meds: No Currently Unemployed: No Education: Master's Degree or Higher Difficulty w/ Childcare or Family Care: No Living arrangements: alone Occupation/Education: retired Gender identity (if verbalized by the patient): Female Sexual Orientation (if Verbalized by the Patient): Straight or Heterosexual Spiritual care concerns: No Meds Home Medications and Allergies Home Medications ?Medication ?Instructions ?Recorded ?Confirmed ?Type fluticasone propionate 50 1 spray intranasal DAILY PRN 08/16/20 01/16/25 History mcg/actuation nasal allergies spray,suspension thiamine HCl (vitamin B1) 100 mg 100 mg PO QAM #30 tabs 08/18/20 01/16/25 Rx tablet (Vitamin B-1) zesgyzytrhwb-Ep-lgrj-minerals 1 tablet PO DAILY #30 tabs 01/16/21 01/16/25 Rx (Multiple Vitamin, Womens tablet) mecobalamin (vitamin B12) 1,000 3,000 mcg PO DAILY 05/13/21 01/16/25 History mcg chewable tablet pyridoxine (vitamin B6) 100 mg 100 mg PO DAILY 05/13/21 01/16/25 History tablet magnesium oxide 400 mg (241.3 mg 250 mg PO QAM 06/06/21 01/16/25 History magnesium) tablet blood sugar diagnostic #360 ea 10/31/22 01/16/25 Rx empagliflozin 10 mg tablet 10 mg PO DAILY #30 tabs 10/26/23 01/16/25 Rx (Jardiance) spironolactone 25 mg tablet 25 mg PO QAM #30 tabs 10/26/23 01/16/25 Rx alendronate 70 mg tablet 70 mg PO WEEKLY #12 tabs 12/12/23 01/16/25 Rx atorvastatin 10 mg tablet 10 mg PO QAM #90 tabs 06/10/24 01/16/25 Rx ascorbate calcium (vitamin C) 500 500 mg PO DAILY 06/20/24 01/16/25 History mg tablet aspirin 81 mg tablet,delayed 81 mg PO DAILY 06/20/24 01/16/25 History release folic acid 800 mcg tablet 0.8 mg PO DAILY 06/20/24 01/16/25 History tacrolimus 0.03 % topical ointment 1 applic topical BID 08/06/24 01/16/25 History calcitriol 0.25 mcg capsule 0.25 mcg PO 4XW #16 caps 08/23/24 01/16/25 Rx pen needle, diabetic 32 gauge x #360 ea 09/11/24 01/16/25 Rx 5/32 (BD Muriel 2nd Gen Pen Needle) blood-glucose sensor (DexCodeRyte G7 #3 ea 09/13/24 01/16/25 Rx Sensor device) potassium chloride 10 mEq 10 meq PO DAILY #90 caps 09/30/24 01/16/25 Rx capsule,extended release insulin glargine 100 unit/mL (3 See Rx Instructions .Route 10/25/24 01/16/25 Rx mL) subcutaneous pen (Lantus .COMPLEX #15 mL Solostar U-100 Insulin) carvedilol 6.25 mg tablet 6.25 mg PO Q12H #60 tabs 12/31/24 01/16/25 Rx acyclovir 5 % topical cream 1 applic topical DAILY 01/16/25 01/16/25 History (Zovirax) albuterol sulfate 2.5 mg/3 mL 2.5 mg inhalation Q8H PRN 01/16/25 01/16/25 History (0.083 %) solution for nebulization shortness of breath or wheezing collagenase clostridium histo. 250 1 applic topical DAILY 01/16/25 01/16/25 History unit/gram topical ointment (Santyl) collagenase clostridium histo. 250 1 applic topical DAILY 01/16/25 01/16/25 History unit/gram topical ointment (Santyl) ferrous sulfate 325 mg (65 mg 325 mg PO DAILY 01/16/25 01/16/25 History iron) tablet (Leonard-Time) furosemide 40 mg tablet 40 mg PO DAILY 01/16/25 01/16/25 History insulin lispro 100 unit/mL 3 unit subcut TID 01/16/25 01/16/25 History subcutaneous pen (Humalog KwikPen (U-100) Insulin) lanolin alcohols-mineral 1 applic topical DAILY 01/16/25 01/16/25 History oil-w.petrolatum-ceresin topical cream loperamide 2 mg capsule 2 mg PO QID PRN loose stool 01/16/25 01/16/25 History (Anti-Diarrheal (loperamide)) midodrine 10 mg tablet 10 mg PO TID PRN dizziness or 01/16/25 01/16/25 History vertigo ondansetron 4 mg disintegrating 4 mg PO Q6H PRN nausea and vomiting 01/16/25 01/16/25 History tablet pantoprazole 40 mg tablet,delayed 40 mg PO BID 01/16/25 01/16/25 History release sennosides 8.6 mg tablet (senna) 8.6 mg PO DAILY PRN constipation 01/16/25 01/16/25 History Allergies Allergy/AdvReac Type Severity Reaction Status Date / Time codeine AdvReac Unknown Headache Verified 01/16/25 17:56 Vital Signs Vital Signs - 24 hr 01/16/25 10:17 01/16/25 10:23 01/16/25 10:25 Temperature 97.6 F Pulse Rate 80 73 73 Respiratory Rate 15 15 15 Blood Pressure 88/46 L 80/45 L 83/46 L Pulse Oximetry 100 100 100 Oxygen Delivery Room Air 01/16/25 10:30 01/16/25 10:45 01/16/25 10:45 Temperature Pulse Rate 72 79 79 Respiratory Rate 16 19 19 Blood Pressure 84/46 L 84/46 L 104/93 H Pulse Oximetry 100 100 100 Oxygen Delivery 01/16/25 10:46 01/16/25 11:02 01/16/25 11:15 Temperature Pulse Rate 79 74 75 Respiratory Rate 17 17 15 Blood Pressure 90/55 L 86/50 L 91/56 L Pulse Oximetry 100 100 99 Oxygen Delivery 01/16/25 11:30 01/16/25 11:31 01/16/25 11:45 Temperature Pulse Rate 74 75 75 Respiratory Rate 15 17 15 Blood Pressure 89/56 L 89/56 L 91/64 L Pulse Oximetry 100 100 100 Oxygen Delivery 01/16/25 12:00 01/16/25 12:15 01/16/25 12:54 Temperature Pulse Rate 79 81 81 Respiratory Rate 17 19 16 Blood Pressure 100/48 L 113/59 L 81/49 L Pulse Oximetry 100 100 99 Oxygen Delivery 01/16/25 13:21 01/16/25 13:24 01/16/25 13:31 Temperature Pulse Rate 79 80 Respiratory Rate 14 24 H 15 Blood Pressure 79/48 L 86/69 L 95/48 L Pulse Oximetry 100 100 99 Oxygen Delivery 01/16/25 13:57 01/16/25 14:16 01/16/25 14:31 Temperature Pulse Rate 80 81 79 Respiratory Rate 13 14 20 Blood Pressure 87/48 L 100/53 L 103/60 Pulse Oximetry 100 100 Oxygen Delivery 01/16/25 14:46 01/16/25 15:01 Temperature Pulse Rate 76 85 Respiratory Rate 23 H 15 Blood Pressure 85/51 L 97/64 L Pulse Oximetry 100 100 Oxygen Delivery Exam Narrative: 2+ pitting edema, abdomen tight but nontender. normoactive BS. heart and lungs fine. booty wound, see photo Const: General: comfortable and no acute distress Other: , female, chronically ill-appearing, nontoxic appearance, obese body habitus. HENMT: Face/Nose/Sinus: Normal nares present Mouth: Yes moist mucous membranes Eyes: General: appearance normal, both eyes and all related structures Sclera: sclerae normal Pupils: Equal, round and reactive pupils present EOM: EOMs intact bilaterally Resp: Effort & Inspection: normal respiratory effort Auscultation: clear to auscultation bilaterally Cardio: Rate: regular rate Rhythm: regular rhythm Other: S1-S2 present without murmur, rub, ectopy GI: Other: Abdomen rounded and tight, nontender. Normoactive bowel sounds in all quadrants. Skin: General skin exam: normal color and no rashes or lesions noted Wounds: wounds noted Other: Pressure wound to buttock region, no active signs of infection. Neuro: Speech: normal speech Motor exam (neuro): 5/5 motor strength present throughout Sensory Exam: normal sensation Other: A&O x4 Extrem: Other: 2+ pitting edema from thighs down bilaterally, symmetric. Jt wraps in place to bilateral calves. Pressure ulcer to right heel, wound bed pink/red with no significant drainage or signs of infection. Large ulceration to sacrum, possible tunneling. Psych: Mental Status: mental status grossly normal Affect: normal affect Other: Good insight and judgment, very pleasant H&P: Results Labs Labs: Short CBC 01/16/25 Range/Units 11:08 WBC 7.2 (4.5-10.0) K/mm3 Hgb 8.1 L (12.0-15.0) g/dL Hct 25.8 L (37.0-47.0) % Plt Count 225 D (150-375) k/mm3 BMP 01/16/25 11:08 Sodium 131 L Potassium 4.3 Chloride 100 Carbon Dioxide 22 BUN 28 H Creatinine 1.45 H Glucose 102 Calcium 8.0 L Liver Function 01/16/25 Range/Units 11:08 Total Bilirubin 0.9 (0.2-1.3) mg/dL AST 25 (14-36) U/L ALT 20 (6-35) U/L Alkaline Phosphatase 339 H (38-126) U/L Albumin 2.8 L (3.5-5.1) g/dL Urine 01/16/25 Range/Units 11:51 Urine Color Yellow (Yellow) Urine Appearance Clear (Clear) Urine pH 5.5 (5.0-9.0) Ur Specific Ione 1.011 (1.001-1.035) Urine Protein Negative (Negative) mg/dL Urine Glucose (UA) 1+ H (Negative) mg/dL Assessment and Plan Assessment and plan (1) Acute on chronic diastolic (congestive) heart failure: Code(s): I50.33 - Acute on chronic diastolic (congestive) heart failure Status: Acute Assessment and Plan: Patient's BNP was a 1740, previously 12,800 on 10/30/2024. CXR showed mild interstitial edema and a small right pleural effusion. Last echo performed on 10/31/2024 which showed normal systolic function, estimated EF 60 65%, grade 2 diastolic dysfunction. Patient has history cirrhosis and chronic hypotension (on midodrine) that has previously presented issues with diuresis. Subjective report of increased lower extremity swelling and swelling to her abdomen. Initially unable to diurese given hypotension. She is currently on Lasix 40 mg daily and Spironolactone 25 mg daily. Spoke with her telecommunication tower technician earlier this week, recommended increasing Lasix from 40 mg to 40 mg b.i.d. for 4 days (tomorrow is day 4). Patient has only taken 40 mg today, will give 40 IV this evening as blood pressure has improved. Plan for repeat of extra dose tomorrow IV, continued home medication p.o.. Currently receiving albumin for volume expansion. Monitor I&Os and daily weights. (2) Gallstones: Code(s): K80.20 - Calculus of gallbladder without cholecystitis without obstruction Status: Acute Assessment and Plan: CT abd/pelvis on 01/16 showed prominence of the common bile duct with a 4 mm stone in the distal common bile duct. GI has been consulted, Owen THRASHER, who recommended surgical consult as she has significant comorbidities and there are risks of complications with a ERCP given her current liver function. Consult placed to general surgery. Trend LFTs. No current abdominal pain. (3) Fall from ground level: Code(s): W18.30XA - Fall on same level, unspecified, initial encounter Status: Acute Assessment and Plan: Trauma workup negative for acute fracture, imaging did redemonstrate the known right medial tibial plateau fracture that occurred in October of 2024. PT/OT evaluation and treatment. Suspect patient will need placement, care coordination consulted. Analgesics p.r.n. (4) Pressure ulcer, heel, right, unstageable: Code(s): L89.610 - Pressure ulcer of right heel, unstageable Status: Acute Assessment and Plan: Wound RN consulted. No signs of infection on exam. (5) Pressure ulcer of sacral region: Qualifiers: Pressure injury stage: unspecified pressure injury stage Qualified Code(s): L89.159 - Pressure ulcer of sacral region, unspecified stage Code(s): L89.159 - Pressure ulcer of sacral region, unspecified stage Status: Acute Assessment and Plan: Wound during consulted. Possible tunneling to ulceration, drainage serosanguineous to purulent. No current leukocytosis. (6) Insulin dependent type 2 diabetes mellitus: Code(s): E11.9 - Type 2 diabetes mellitus without complications; Z79.4 - care home (current) use of insulin Status: Chronic Assessment and Plan: Hypoglycemia protocol in place. Glucose check ACHS. Continue appropriate home medications. High-dose sliding scale TIDWM (based off BMI). A1C 5.1% on 08/26/2024, update. (7) Hypotension: Qualifiers: Hypotension type: unspecified hypotension type Qualified Code(s): I95.9 - Hypotension, unspecified Code(s): I95.9 - Hypotension, unspecified Status: Chronic Assessment and Plan: Currently acute on chronic. Continue midodrine p.r.n.. Albumin 25 q.6 x4. Given 2 doses of albumin in ED as well with some improvement in blood pressure. (8) Alcoholic cirrhosis of liver: Qualifiers: Ascites presence: without ascites Qualified Code(s): K70.30 - Alcoholic cirrhosis of liver without ascites Code(s): K70.30 - Alcoholic cirrhosis of liver without ascites Status: Chronic Assessment and Plan: LFTs within normal limits. Recently followed with her GI provider on 12/31/2024, Owen THRASHER, and the patient's labetalol 100 mg b.i.d. was exchanged for carvedilol 6.25 b.i.d. in the hopes of delaying complications such as esophageal varices and ascites. (9) Chronic kidney disease, stage 3: Qualifiers: Chronic kidney disease stage 3 subtype: stage 3b (GFR 30-44) Qualified Code(s): N18.32 - Chronic kidney disease, stage 3b Code(s): N18.30 - Chronic kidney disease, stage 3 unspecified Status: Chronic Assessment and Plan: Creatinine 1.45, BUN 28, and GFR 36. The patient is currently at her baseline. Continue to monitor. Correct electrolytes as needed. (10) Chronic hyponatremia: Code(s): E87.1 - Hypo-osmolality and hyponatremia Status: Chronic Assessment and Plan: Sodium 131, at baseline. Monitor. (11) Chronic anemia: Code(s): D64.9 - Anemia, unspecified Status: Chronic Assessment and Plan: Hemoglobin 8.1, at baseline. Monitor. Transfuse if less than 7. Plan Diet: Diabetic GI Prophylaxis: Not currently indicated DVT Prophylaxis: Lovenox SQ Lines: Peripheral Code Status: Full code Quality VTE Prophylaxis VTE prophylaxis: pharmacologic ordered Hospitalist MIPS Advance Care Plan I have confirmed that the patient's Advanced Care Plan is present, code status is documented, or surrogate decision maker is listed in patient medical record.: Yes Medication Reconciliation I have utilized all available resources to obtain, update and review the patients current medications (includes all prescriptions, OTC, herbals, cannabis, and nutritional supplements).: Yes
--- NOTE | 2025-01-16 16:25 | ADMGEN ---
This patient, Lou Islas, was admitted to [facility] Surg Room 302-01. Patient/family oriented to hospital policies and general routines including ID bracelet, bed and alarms, visiting hours, pain management, procedures, bathroom and other care routines, personal items, smoking policy, room service/diet, and visiting hours. Information on how to activate the Rapid Response Team has been discussed. Patient/Family are encouraged to report perceived risks to care and to ask questions if they do not understand what they are told or what they should do.
[2025-01-16 18:49] LABS: Glucose Point of Care 163 mg/dl (65-105)
--- NOTE | 2025-01-16 20:06 | WPDGICN ---
Assessment and Plan Assessment and plan (1) Alcoholic cirrhosis of liver with ascites: Code(s): K70.31 - Alcoholic cirrhosis of liver with ascites Status: Acute (2) Gallstones: Code(s): K80.20 - Calculus of gallbladder without cholecystitis without obstruction Status: Acute Assessment and Plan: The patient has incidental choledocholithiasis. Current guidelines favor observation, particularly in patients with significant comorbidities, as is the case here. The risk of complications from ERCP could be substantial given her current liver function. Therefore, a surgical consultation should be obtained to discuss the possibility of laparoscopic cholecystectomy with intraoperative cholangiogram as an alternative to continued observation. (3) Choledocholithiasis: Code(s): K80.50 - Calculus of bile duct without cholangitis or cholecystitis without obstruction Status: Acute Plan - Suggest obtaining opinion of the Surgery Service GI Consult Note Consult date/time: 01/16/25 20:06 HPI: Lou Islas, a 69-year-old female with a history of alcohol-related cirrhosis and active alcohol use (approximately 2 cocktails daily), is known to our service from a recent hospitalization for sepsis secondary to pneumonia and cellulitis. She also has a medical history of diabetes mellitus, hypertension, and chronic kidney disease. This morning at 4:00 a.m., she experienced weakness, and fell prompting a visit to the emergency room. During the evaluation for suspected abdominal trauma, an incidental finding on CT scan revealed a dilated common bile duct with a 4 mm stone and the presence of gallbladder stones. Her liver enzymes are within normal limits (AST 25 U/L, ALT 20 U/L, total bilirubin 0.9 mg/dL), although her alkaline phosphatase is mildly elevated at 339 U/L. Her liver function panel shows sodium 131 mEq/L, creatinine 1.45 mg/dL, albumin 2.8 g/dL, and INR 1.3, resulting in a MELD 3.0 score of 20. The patient denies jaundice, dark urine, abdominal pain, or fever. In summary, she presents with incidental choledocholithiasis discovered on CT imaging. Review of Systems Review of Systems: All systems reviewed & are unremarkable except as noted in HPI and below PMFSH Past Medical History Medical History Alcoholic cirrhosis of liver Chronic venous insufficiency of lower extremity Stage 3a chronic kidney disease Shingles ANTHONY (obstructive sleep apnea) Osteoporosis Gram-negative bacteremia Anemia of chronic disease Ascites Obesity (BMI 30-39.9) Hyperlipidemia, unspecified Carotid artery disease Alcohol abuse Osteoarthritis Diastolic dysfunction ECHO 10/2023: normal LV systolic function, estimated EF of 60-65%, abnormal diastolic dysfunction. Left-sided carotid artery disease US 01/2021: 50 to 69% stenosis of the left ICA. Orthostatic hypotension on midodrine, chronic hypotension, previously caused syncope and frequent falls and subsequent fractures. Insulin dependent type 2 diabetes mellitus A1C 5.1% 08/2024 Hypertension Chronic hyponatremia Eczema Periprosthetic fracture of femur following total replacement of hip (01/2020) Non operative treatment. GERD (gastroesophageal reflux disease) Surgical History Surgical History Status post open reduction with internal fixation of fracture (05/30/21) ORIF of comminuted intra-articular fracture of the distal left femur, done at [facility]. History of hysterectomy (2005) Due to uterine fibroids and endometriosis. History of bilateral cataract extraction History of lumbar surgery (2005) L1-L3. History of right hip replacement (2005) Per Dr. Curiel in [place]. Family History Family History Father Heart attack Mother Diabetes mellitus COPD (chronic obstructive pulmonary disease) Hypertension Afib Sibling Amputation above knee Diabetes mellitus Father , At age 50 Acute myocardial infarction Sibling , At age 50 Pancreatic cancer Social History Social History Social History: The patient lives in her own home in [place]. She has been twice, her 1st and she has since her 2nd . She has no children. She moved to this area within the last couple of years from [place] to be close to her 3 remaining siblings. She worked from home for a [employer] doing [employer] and she has a master's degree in statistics. She has recently retired.She smoked up to 2 packs of cigarettes a day before quitting in 2005. She drinks 2 mixed drinks a day, each containing a shot of vodka which equals out to about 1 L to 1.7 L of vodka a week. She denies illicit substance use. Surrogate decision maker: Miladys Jensen, sister. Code status: Full code. Smoking packs per day: 2 Smoking cigarettes per day: 40.0 Years smoked: 30 Smoking pack-years: 60.00 Smoking status: Former smoker Smokeless tobacco user: chewing tobacco Second hand tobacco smoke exposure: Yes Alcohol intake: current Drinks per week: 14 Substance use: never Substance use type: does not use Do You Feel Safe in your Home?: Yes Lack of Transportation: No Lack of Food: Never True Current Housing: I Have Housing Concerned About Future Housing: No Difficulty Paying Gas/Electric Bills: No Difficulty Paying for Meds: No Currently Unemployed: No Education: Master's Degree or Higher Difficulty w/ Childcare or Family Care: No Living arrangements: alone Occupation/Education: retired Gender identity (if verbalized by the patient): Female Sexual Orientation (if Verbalized by the Patient): Straight or Heterosexual Spiritual care concerns: No Meds Home Medications and Allergies Home Medications ?Medication ?Instructions ?Recorded ?Confirmed ?Type fluticasone propionate 50 1 spray intranasal DAILY PRN 08/16/20 01/16/25 History mcg/actuation nasal allergies spray,suspension thiamine HCl (vitamin B1) 100 mg 100 mg PO QAM #30 tabs 08/18/20 01/16/25 Rx tablet (Vitamin B-1) dubztuplobbh-Au-bdlz-minerals 1 tablet PO DAILY #30 tabs 01/16/21 01/16/25 Rx (Multiple Vitamin, Womens tablet) mecobalamin (vitamin B12) 1,000 3,000 mcg PO DAILY 05/13/21 01/16/25 History mcg chewable tablet pyridoxine (vitamin B6) 100 mg 100 mg PO DAILY 05/13/21 01/16/25 History tablet magnesium oxide 400 mg (241.3 mg 250 mg PO QAM 06/06/21 01/16/25 History magnesium) tablet blood sugar diagnostic #360 ea 10/31/22 01/16/25 Rx empagliflozin 10 mg tablet 10 mg PO DAILY #30 tabs 10/26/23 01/16/25 Rx (Jardiance) spironolactone 25 mg tablet 25 mg PO QAM #30 tabs 10/26/23 01/16/25 Rx alendronate 70 mg tablet 70 mg PO WEEKLY #12 tabs 12/12/23 01/16/25 Rx atorvastatin 10 mg tablet 10 mg PO QAM #90 tabs 06/10/24 01/16/25 Rx ascorbate calcium (vitamin C) 500 500 mg PO DAILY 06/20/24 01/16/25 History mg tablet aspirin 81 mg tablet,delayed 81 mg PO DAILY 06/20/24 01/16/25 History release folic acid 800 mcg tablet 0.8 mg PO DAILY 06/20/24 01/16/25 History tacrolimus 0.03 % topical ointment 1 applic topical BID 08/06/24 01/16/25 History calcitriol 0.25 mcg capsule 0.25 mcg PO 4XW #16 caps 08/23/24 01/16/25 Rx pen needle, diabetic 32 gauge x #360 ea 09/11/24 01/16/25 Rx 5/32 (BD Muriel 2nd Gen Pen Needle) blood-glucose sensor (Dexcom G7 #3 ea 09/13/24 01/16/25 Rx Sensor device) potassium chloride 10 mEq 10 meq PO DAILY #90 caps 09/30/24 01/16/25 Rx capsule,extended release insulin glargine 100 unit/mL (3 See Rx Instructions .Route 10/25/24 01/16/25 Rx mL) subcutaneous pen (Lantus .COMPLEX #15 mL Solostar U-100 Insulin) carvedilol 6.25 mg tablet 6.25 mg PO Q12H #60 tabs 12/31/24 01/16/25 Rx acyclovir 5 % topical cream 1 applic topical DAILY 01/16/25 01/16/25 History (Zovirax) albuterol sulfate 2.5 mg/3 mL 2.5 mg inhalation Q8H PRN 01/16/25 01/16/25 History (0.083 %) solution for nebulization shortness of breath or wheezing collagenase clostridium histo. 250 1 applic topical DAILY 01/16/25 01/16/25 History unit/gram topical ointment (Santyl) collagenase clostridium histo. 250 1 applic topical DAILY 01/16/25 01/16/25 History unit/gram topical ointment (Santyl) ferrous sulfate 325 mg (65 mg 325 mg PO DAILY 01/16/25 01/16/25 History iron) tablet (Leonard-Time) furosemide 40 mg tablet 40 mg PO DAILY 01/16/25 01/16/25 History insulin lispro 100 unit/mL 3 unit subcut TID 01/16/25 01/16/25 History subcutaneous pen (Humalog KwikPen (U-100) Insulin) lanolin alcohols-mineral 1 applic topical DAILY 01/16/25 01/16/25 History oil-w.petrolatum-ceresin topical cream loperamide 2 mg capsule 2 mg PO QID PRN loose stool 01/16/25 01/16/25 History (Anti-Diarrheal (loperamide)) midodrine 10 mg tablet 10 mg PO TID PRN dizziness or 01/16/25 01/16/25 History vertigo ondansetron 4 mg disintegrating 4 mg PO Q6H PRN nausea and vomiting 01/16/25 01/16/25 History tablet pantoprazole 40 mg tablet,delayed 40 mg PO BID 01/16/25 01/16/25 History release sennosides 8.6 mg tablet (senna) 8.6 mg PO DAILY PRN constipation 01/16/25 01/16/25 History Allergies Allergy/AdvReac Type Severity Reaction Status Date / Time codeine AdvReac Unknown Headache Verified 01/16/25 17:56 Vital Signs Vital Signs - 24 hr 01/16/25 10:17 01/16/25 10:23 01/16/25 10:25 Temperature 97.6 F Pulse Rate 80 73 73 Respiratory Rate 15 15 15 Blood Pressure 88/46 L 80/45 L 83/46 L Pulse Oximetry 100 100 100 Oxygen Delivery Room Air 01/16/25 10:30 01/16/25 10:45 01/16/25 10:45 Temperature Pulse Rate 72 79 79 Respiratory Rate 16 19 19 Blood Pressure 84/46 L 84/46 L 104/93 H Pulse Oximetry 100 100 100 Oxygen Delivery 01/16/25 10:46 01/16/25 11:02 01/16/25 11:15 Temperature Pulse Rate 79 74 75 Respiratory Rate 17 17 15 Blood Pressure 90/55 L 86/50 L 91/56 L Pulse Oximetry 100 100 99 Oxygen Delivery 01/16/25 11:30 01/16/25 11:31 01/16/25 11:45 Temperature Pulse Rate 74 75 75 Respiratory Rate 15 17 15 Blood Pressure 89/56 L 89/56 L 91/64 L Pulse Oximetry 100 100 100 Oxygen Delivery 01/16/25 12:00 01/16/25 12:15 01/16/25 12:54 Temperature Pulse Rate 79 81 81 Respiratory Rate 17 19 16 Blood Pressure 100/48 L 113/59 L 81/49 L Pulse Oximetry 100 100 99 Oxygen Delivery 01/16/25 13:21 01/16/25 13:24 01/16/25 13:31 Temperature Pulse Rate 79 80 Respiratory Rate 14 24 H 15 Blood Pressure 79/48 L 86/69 L 95/48 L Pulse Oximetry 100 100 99 Oxygen Delivery 01/16/25 13:57 01/16/25 14:00 01/16/25 14:16 Temperature 96.9 F L Pulse Rate 80 80 81 Respiratory Rate 13 16 14 Blood Pressure 87/48 L 92/44 L 100/53 L Pulse Oximetry 100 100 Oxygen Delivery 01/16/25 14:31 01/16/25 14:46 01/16/25 15:01 Temperature Pulse Rate 79 76 85 Respiratory Rate 20 23 H 15 Blood Pressure 103/60 85/51 L 97/64 L Pulse Oximetry 100 100 100 Oxygen Delivery 01/16/25 15:37 01/16/25 15:46 01/16/25 16:29 Temperature Pulse Rate 79 78 Respiratory Rate 19 18 18 Blood Pressure 100/56 L 101/54 L Pulse Oximetry 99 100 100 Oxygen Delivery Room Air Exam Narrative: Alert and awake, oriented x3. Not acutely distressed, not jaundiced. Lungs and chest: Clear. Abdomen: Soft, nontender, nondistended, no hepatosplenomegaly. No masses , extremities: 3+ pitting edema pedal and pretibial. Neurologically intact Results Labs 01/16/25 11:08 01/16/25 11:08 Labs: Short CBC 01/16/25 Range/Units 11:08 WBC 7.2 (4.5-10.0) K/mm3 Hgb 8.1 L (12.0-15.0) g/dL Hct 25.8 L (37.0-47.0) % Plt Count 225 D (150-375) k/mm3 BMP 01/16/25 11:08 Sodium 131 L Potassium 4.3 Chloride 100 Carbon Dioxide 22 BUN 28 H Creatinine 1.45 H Glucose 102 Calcium 8.0 L Liver Function 01/16/25 Range/Units 11:08 Total Bilirubin 0.9 (0.2-1.3) mg/dL AST 25 (14-36) U/L ALT 20 (6-35) U/L Alkaline Phosphatase 339 H (38-126) U/L Albumin 2.8 L (3.5-5.1) g/dL Urine 01/16/25 Range/Units 11:51 Urine Color Yellow (Yellow) Urine Appearance Clear (Clear) Urine pH 5.5 (5.0-9.0) Ur Specific [place] 1.011 (1.001-1.035) Urine Protein Negative (Negative) mg/dL Urine Glucose (UA) 1+ H (Negative) mg/dL
[2025-01-16 20:54] LABS: Glucose Point of Care 176 mg/dl (65-105)
[2025-01-16] MEDS: FUROSEMIDE INJ 40 MG/4 ML VIAL IV PUSH (23:36)
[2025-01-16] MEDS: carvediloL 6.25 MG TABLET PO (23:37)
[2025-01-16] MEDS: INSULIN GLARGINE (*BKC) 100 UNITS/ML 15 UNITS SUB-Q (23:39)
[2025-01-17] VITALS (10 sets, daily range): BP systolic 90–118; BP diastolic 49–86; PULSE 70–85; RESP 16–18; TEMP 35.8–36.4; O2SAT 94–99
[2025-01-17 05:46] LABS: Basophils Percent Auto 0.4 % (0.2-1.2); Eosinophils Absolute Auto 0.4 K/mm3 (0-0.3); Eosinophils Percent Auto 5.8 % (0-4.4); Hematocrit 24.3 % (37.0-47.0); Hemoglobin 7.6 g/dL (12.0-15.0); Immature Granulocyte Absolute 0.04 K/mm3 (0.00-0.031); Immature Granulocyte Percent A 0.5 % (0-0.5); Lymphocytes Absolute Auto 0.77 K/mm3 (0.9-3.2); Lymphocytes Percent Auto 10.2 % (18.3-44.2); Mean Corpuscular HGB Conc 31.3 g/dl (32-36); Mean Corpuscular Hemoglobin 31.7 pg (26-34); Mean Corpuscular Volume 101.3 fl (80-100); Mean Platelet Volume 10.2 fl (7.4-10.4); Monocytes Absolute Auto 0.7 K/mm3 (0.1-0.6); Monocytes Percent Auto 8.7 % (2.6-8.5); Neutrophils Absolute Auto 5.6 K/mm3 (1.3-6.7); Neutrophils Percent Auto 74.4 % (45.5-73.1); Platelet Count Result 199 k/mm3 (150-375); Red Cell Distribution Width 14.9 % (11.5-14.5); White Blood Count 7.6 K/mm3 (4.5-10.0)
[2025-01-17 05:59] LABS: Alanine Aminotransferase 16 U/L (6-35); Albumin Level 3.5 g/dL (3.5-5.1); Alkaline Phosphatase 227 U/L (38-126); Anion Gap 9 mmol/L (4-12); Aspartate Amino Transferase 20 U/L (14-36); Blood Urea Nitrogen 30 mg/dL (7-17); Calcium 8.5 mg/dL (8.4-10.2); Carbon Dioxide 24 mmol/L (22-30); Chloride 100 mmol/L (98-107); Estimated CRCL calculation 28 ml/min; Estimated Glomerular Filt Rate 26; Glucose 68 mg/dL (65-110); Potassium 4.4 mmol/L (3.4-5.0); Sodium 133 mmol/L (137-145)
[2025-01-17] MEDS: ALBUMIN HUMAN 25% 25 GM/100 ML 100 ML IVPB ×2 (06:13→12:23)
[2025-01-17 07:44] LABS: Glucose Point of Care 41 mg/dl (65-105)
[2025-01-17 07:44] LABS: Glucose Point of Care 45 mg/dl (65-105)
--- NOTE | 2025-01-17 07:56 | WPDGIPROGNO ---
Progress Note: A&P Assessment and Plan (1) Alcoholic cirrhosis of liver with ascites: Code(s): K70.31 - Alcoholic cirrhosis of liver with ascites Status: Acute (2) Choledocholithiasis: Code(s): K80.50 - Calculus of bile duct without cholangitis or cholecystitis without obstruction Status: Acute Assessment and Plan: Patient with incidental choledocholithiasis, in the absence of clinical picture or laboratory abnormalities. Awaiting surgical consultation for final decision about overall management which might include cholecystectomy or just observation as well. Subjective Date/time seen: 01/17/25 07:56 Interval history: no new complaints. Exam Narrative: Unchanged from admission. Objective Data Vital Signs Vital Signs: Vital Signs - 24 hr 01/16/25 10:17 01/16/25 10:23 01/16/25 10:25 Temperature 97.6 F Pulse Rate 80 73 73 Respiratory Rate 15 15 15 Blood Pressure 88/46 L 80/45 L 83/46 L Pulse Oximetry 100 100 100 Oxygen Delivery Room Air 01/16/25 10:30 01/16/25 10:45 01/16/25 10:45 Temperature Pulse Rate 72 79 79 Respiratory Rate 16 19 19 Blood Pressure 84/46 L 84/46 L 104/93 H Pulse Oximetry 100 100 100 Oxygen Delivery 01/16/25 10:46 01/16/25 11:02 01/16/25 11:15 Temperature Pulse Rate 79 74 75 Respiratory Rate 17 17 15 Blood Pressure 90/55 L 86/50 L 91/56 L Pulse Oximetry 100 100 99 Oxygen Delivery 01/16/25 11:30 01/16/25 11:31 01/16/25 11:45 Temperature Pulse Rate 74 75 75 Respiratory Rate 15 17 15 Blood Pressure 89/56 L 89/56 L 91/64 L Pulse Oximetry 100 100 100 Oxygen Delivery 01/16/25 12:00 01/16/25 12:15 01/16/25 12:54 Temperature Pulse Rate 79 81 81 Respiratory Rate 17 19 16 Blood Pressure 100/48 L 113/59 L 81/49 L Pulse Oximetry 100 100 99 Oxygen Delivery 01/16/25 13:21 01/16/25 13:24 01/16/25 13:31 Temperature Pulse Rate 79 80 Respiratory Rate 14 24 H 15 Blood Pressure 79/48 L 86/69 L 95/48 L Pulse Oximetry 100 100 99 Oxygen Delivery 01/16/25 13:57 01/16/25 14:00 01/16/25 14:16 Temperature 96.9 F L Pulse Rate 80 80 81 Respiratory Rate 13 16 14 Blood Pressure 87/48 L 92/44 L 100/53 L Pulse Oximetry 100 100 Oxygen Delivery 01/16/25 14:31 01/16/25 14:46 01/16/25 15:01 Temperature Pulse Rate 79 76 85 Respiratory Rate 20 23 H 15 Blood Pressure 103/60 85/51 L 97/64 L Pulse Oximetry 100 100 100 Oxygen Delivery 01/16/25 15:37 01/16/25 15:46 01/16/25 16:29 Temperature Pulse Rate 79 78 Respiratory Rate 19 18 18 Blood Pressure 100/56 L 101/54 L Pulse Oximetry 99 100 100 Oxygen Delivery Room Air 01/16/25 20:00 01/16/25 20:00 01/16/25 20:25 Temperature 96.5 F L Pulse Rate 84 88 Respiratory Rate 18 Blood Pressure 110/51 L Pulse Oximetry 98 Oxygen Delivery Room Air 01/16/25 23:37 01/17/25 00:00 01/17/25 01:15 Temperature 96.7 F L Pulse Rate 93 85 82 Respiratory Rate 18 Blood Pressure 118/86 Pulse Oximetry 99 Oxygen Delivery 01/17/25 04:00 01/17/25 04:00 Temperature 96.5 F L Pulse Rate 81 80 Respiratory Rate 16 Blood Pressure 103/55 L Pulse Oximetry 96 Oxygen Delivery Intake/Output Intake/Output: Intake & Output 01/14/25 01/15/25 01/16/25 01/17/25 23:59 23:59 23:59 23:59 Intake Total 560 250 Output Total 500 250 Balance 60 0 Meds/Results Medications: Active Medications Generic Name Dose Route Start Last Admin Trade Name Freq PRN Reason Stop Dose Admin Acetaminophen 650 mg 01/16/25 15:05 Acetaminophen 325 Mg Tablet PO Q4H PRN Mild Pain (1-3) or Fever Hydrocodone Bitart/Acetaminophen 1 tab 01/16/25 15:05 Hydrocodone/Acetaminophen (*Crx) 5-325 Mg Tablet PO Q4H PRN Pain Rated 4-6 Acyclovir 1 applic 01/17/25 09:00 Acyclovir 5% Ointment 15 Gm Tube TOPICAL 02/16/25 08:59 DAILY NEIL Albuterol 2.5 mg 01/16/25 22:54 Albuterol Sulfate Neb 2.5 Mg/3 Ml Inh INHALATION Q8H PRN shortness of breath or wheezing Alendronate Sodium 70 mg 01/21/25 07:00 Alendronate Sodium 70 Mg Tablet PO Tu@0700 [facility] Ascorbic Acid 500 mg 01/17/25 09:00 Ascorbic Acid 500 Mg Tablet PO DAILY [facility] Aspirin 81 mg 01/17/25 09:00 Aspirin 81 Mg Enteric Tablet PO DAILY [facility] Atorvastatin Calcium 10 mg 01/17/25 09:00 Atorvastatin 10 Mg Tablet PO QAM [facility] Calcitriol 0.25 mcg 01/17/25 09:00 Calcitriol 0.25 Mcg Capsule PO SuMoWeFr@0900 [facility] Carvedilol 6.25 mg 01/16/25 22:55 01/16/25 23:37 Carvedilol 6.25 Mg Tablet PO 6.25 mg Q12HR [facility] Administration Collagenase 1 applic 01/17/25 09:00 Collagenase Oint 30 Gm Tube TOPICAL DAILY [facility] Collagenase 1 applic 01/17/25 09:00 Collagenase Oint 30 Gm Tube TOPICAL DAILY [facility] Cyanocobalamin 3,000 mcg 01/17/25 09:00 Cyanocobalamin 1,000 Mcg Tablet PO QAM [facility] Dextrose 12.5 gm 01/16/25 15:05 Dextrose 50% 25 Gm/50 Ml Syringe IV PUSH PRN PRN Hypoglycemia Protocol Empagliflozin 10 mg 01/17/25 09:00 Empagliflozin 10 Mg Tablet PO DAILY [facility] Enoxaparin Sodium 40 mg 01/17/25 09:00 Enoxaparin 40 Mg/0.4 Ml Syringe SUB-Q DAILY [facility] Ferrous Sulfate 325 mg 01/17/25 09:00 Ferrous Sulfate [address] BY MOUTH DAILY [facility] Fluticasone Propionate 2 spray 01/16/25 22:54 Fluticasone Propionate 0.05% Na Spr 16 Gm Btl (*Bkc) NASAL DAILY PRN allergies Folic Acid 0.8 mg 01/17/25 09:00 Folic Acid 0.4 Mg Tablet PO QAM [facility] Furosemide 40 mg 01/17/25 09:00 Furosemide 40 Mg Tablet PO DAILY [facility] Furosemide 40 mg 01/17/25 21:00 Furosemide Inj 40 Mg/4 Ml Vial IV PUSH 01/17/25 21:01 ONCE ONE Glucagon 1 mg 01/16/25 15:05 Glucagon For Inj 1 Mg Vial IM PRN PRN Hypoglycemia Protocol Glucose 15 gm 01/16/25 15:05 Glucose Oral Gel 15 Gm Of Glucse In 37.5 Gm Tube PO PRN PRN Hypoglycemia Protocol Dextrose 1,000 mls @ 100 mls/hr 01/16/25 15:05 Dextrose 5% 1,000 Ml IVPB PRN PRN Hypoglycemia Protocol Albumin Human 100 mls @ 60 mls/hr 01/16/25 18:00 01/17/25 06:13 Albutein IVPB 01/17/25 13:39 60 mls/hr Q6HR NEIL Administration Insulin Aspart 4 - 8 units 01/16/25 17:00 01/16/25 18:51 Insulin Aspart (*Bkc) 100 Units/Ml SUB-Q Not Given TIDWM [facility] Protocol Insulin Aspart 3 units 01/17/25 08:00 Insulin Aspart (*Bkc) 100 Units/Ml SUB-Q TIDWM [facility] Insulin Glargine 15 units 01/16/25 22:55 01/16/25 23:39 Insulin Glargine (*Bkc) 100 Units/Ml SUB-Q 15 units HS [facility] Administration Loperamide HCl 2 mg 01/16/25 22:54 Loperamide Hcl 2 Mg Capsule PO QID PRN loose stool Magnesium Oxide 200 mg 01/17/25 09:00 Magnesium Oxide 400 Mg Tablet PO QAM [facility] Midodrine 10 mg 01/16/25 22:54 Midodrine Hcl 10 Mg Tablet PO TID PRN Hypotension Miscellaneous Information 1 each 01/17/25 00:01 01/16/25 23:47 Tacromilus 0.03% Ointment Is Nonformulary; Can Pt Use From Home Or Pharmacy Carries 0.1% O XX 02/16/25 00:00 Not Given CLARIFY [facility] Multi-Ingred Cream/Lotion/Oil/Oint 1 applic 01/17/25 09:00 Eucerin Cream 120 Gm Jar TOPICAL DAILY [facility] Multivitamins/Calcium 1 tablet 01/17/25 09:00 Therapeutic Multivitamins/Minerals Tab (*Bkc) PO DAILY [facility] Ondansetron HCl 4 mg 01/16/25 15:05 Ondansetron Inj 4 Mg/2 Ml Vial IV PUSH Q4H PRN Nausea Pantoprazole Sodium 40 mg 01/17/25 09:00 Pantoprazole 40 Mg Tablet PO BID [facility] Potassium Chloride 10 meq 01/17/25 08:00 Potassium Chloride 10 Meq Er Tablet PO DAILY@0800 [facility] Pyridoxine HCl 100 mg 01/17/25 09:00 Pyridoxine Hcl 50 Mg Tablet PO QAM [facility] Senna 8.6 mg 01/16/25 22:54 Sennosides 8.6 Mg Tablet PO DAILY PRN constipation Spironolactone 25 mg 01/17/25 09:00 Spironolactone 25 Mg Tablet PO QAM [facility] Tacrolimus 1 applic 01/17/25 09:00 Tacrolimus 0.03% 30 Gm Ointment TOPICAL BID [facility] Thiamine HCl 100 mg 01/17/25 09:00 Thiamine Hcl 100 Mg Tablet PO QAM [facility] Radiology Results: ITS Impressions Venous Doppler Study 01/16/25 11:37 IMPRESSION: 1: No lower extremity deep venous thrombosis. Chest X-Ray 01/16/25 12:37 Impression: 1: Mild interstitial edema. 2: Small right pleural effusion. Knee X-Ray 01/16/25 12:39 Impression: 1: Medial tibial plateau fracture without significant depression. Recommend correlation with CT or MRI. Abdomen/Pelvis CT 01/16/25 12:46 IMPRESSION: Prominence of the common bile duct with a 4 mm stone in the distal common bile duct. Multiple calcifications have been identified within the ivan hepatis on prior studies, without definitive ductal obstruction, present on the current examination secondary to positioning and technique. Remaining findings within the lower chest, abdomen and pelvis are chronic and unchanged from prior study, as detailed above. Knee CT 01/16/25 13:11 IMPRESSION: 1. Curvilinear subarticular sclerosis underlying the significant portion of the medial tibial plateau without evident acute appearing fracture line or associated marrow edema which could represent either chronic osteochondral lesion/bone infarct or old fracture. Could consider further evaluation with MRI if there is high suspicion for acute fracture. Labs Labs: Laboratory Results - last 24 hr 01/16/25 01/16/25 01/16/25 11:07 11:08 11:51 WBC 7.2 RBC 2.62 L Hgb 8.1 L Hct 25.8 L MCV 98.5 MCH 30.9 MCHC 31.4 L RDW 15.0 H Plt Count 225 D MPV 10.6 H Immature Gran % (Auto) 0.7 H Neut % (Auto) 73.4 H Lymph % (Auto) 9.1 L Mcculloch % (Auto) 9.3 H Eos % (Auto) 6.8 H Baso % (Auto) 0.7 Lymph # (Auto) 0.65 L [place]och # (Auto) 0.7 H Eos # (Auto) 0.5 H Baso # (Auto) 0.1 Abs Immat Gran (auto) 0.05 H Absolute Neuts (auto) 5.3 Absolute Nucleated RBC 0.000 Nucleated RBC % 0.0 ESR 79 H PT 16.3 H INR 1.3 APTT 38.6 H Sodium 131 L Potassium 4.3 Chloride 100 Carbon Dioxide 22 Anion Gap 9 BUN 28 H Creatinine 1.45 H Estim Creat Clear Calc 36 Estimated GFR 36 L Glucose 102 POC Capillary Glucose Lactic Acid 1.3 Calcium 8.0 L Total Bilirubin 0.9 AST 25 ALT 20 Alkaline Phosphatase 339 H C-Reactive Protein 5.2 H NT-Pro-B Natriuret Pep 8740 H Total Protein 6.0 L Albumin 2.8 L Urine Color Yellow Urine Appearance Clear Urine pH 5.5 Ur Specific [place] 1.011 Urine Protein Negative Urine Glucose (UA) 1+ H Urine Ketones Negative Ur Blood (Man) Negative Urine Nitrate Negative Urine Bilirubin Negative Urine Urobilinogen 0.2 Leukocyte Esterase Rfl Negative 01/16/25 01/16/25 01/17/25 18:46 20:29 05:20 WBC 7.6 RBC 2.40 L Hgb 7.6 L Hct 24.3 L MCV 101.3 H MCH 31.7 MCHC 31.3 L RDW 14.9 H Plt Count 199 MPV 10.2 Immature Gran % (Auto) 0.5 Neut % (Auto) 74.4 H Lymph % (Auto) 10.2 L M[place]ulloch % (Auto) 8.7 H Eos % (Auto) 5.8 H Baso % (Auto) 0.4 Lymph # (Auto) 0.77 L M[place]och # (Auto) 0.7 H Eos # (Auto) 0.4 H Baso # (Auto) 0.0 Abs Immat Gran (auto) 0.04 H Absolute Neuts (auto) 5.6 Absolute Nucleated RBC 0.000 Nucleated RBC % 0.0 ESR PT INR APTT Sodium 133 L Potassium 4.4 Chloride 100 Carbon Dioxide 24 Anion Gap 9 BUN 30 H Creatinine 1.90 H Estim Creat Clear Calc 28 Estimated GFR 26 L Glucose 68 POC Capillary Glucose 163 H 176 H Lactic Acid Calcium 8.5 Total Bilirubin 1.0 AST 20 ALT 16 Alkaline Phosphatase 227 H C-Reactive Protein NT-Pro-B Natriuret Pep Total Protein 6.0 L Albumin 3.5 Urine Color Urine Appearance Urine pH Ur Specific [place] Urine Protein Urine Glucose (UA) Urine Ketones Ur Blood (Man) Urine Nitrate Urine Bilirubin Urine Urobilinogen Leukocyte Esterase Rfl 01/17/25 01/17/25 07:31 07:35 WBC RBC Hgb Hct MCV MCH MCHC RDW Plt Count MPV Immature Gran % (Auto) Neut % (Auto) Lymph % (Auto) M[place]ulloch % (Auto) Eos % (Auto) Baso % (Auto) Lymph # (Auto) [place] # (Auto) Eos # (Auto) Baso # (Auto) Abs Immat Gran (auto) Absolute Neuts (auto) Absolute Nucleated RBC Nucleated RBC % ESR PT INR APTT Sodium Potassium Chloride Carbon Dioxide Anion Gap BUN Creatinine Estim Creat Clear Calc Estimated GFR Glucose POC Capillary Glucose 45 L* 41 L* Lactic Acid Calcium Total Bilirubin AST ALT Alkaline Phosphatase C-Reactive Protein NT-Pro-B Natriuret Pep Total Protein Albumin Urine Color Urine Appearance Urine pH Ur Specific [place] Urine Protein Urine Glucose (UA) Urine Ketones Ur Blood (Man) Urine Nitrate Urine Bilirubin Urine Urobilinogen Leukocyte Esterase Rfl
[2025-01-17] MEDS: GLUCOSE ORAL GEL 15 GM OF GLUCSE IN 37.5 GM TUBE PO (08:05)
[2025-01-17 08:06] LABS: Glucose Point of Care 77 mg/dl (65-105)
[2025-01-17 08:33] LABS: Glucose Point of Care 93 mg/dl (65-105)
[2025-01-17] MEDS: POTASSIUM CHLORIDE 10 MEQ ER TABLET PO (08:47)
[2025-01-17] MEDS: FERROUS SULFATE 325 MG TABLET DR BY MOUTH (08:47)
[2025-01-17] MEDS: ASPIRIN 81 MG ENTERIC TABLET PO (08:47)
[2025-01-17] MEDS: ENOXAPARIN 40 MG/0.4 ML SYRINGE SUB-Q (08:47)
[2025-01-17] MEDS: MIDODRINE HCL 10 MG TABLET PO ×2 (08:48→18:15)
[2025-01-17] MEDS: ASCORBIC ACID 500 MG TABLET PO (08:49)
[2025-01-17] MEDS: CYANOCOBALAMIN 1,000 MCG TABLET 3000 MCG PO (08:50)
[2025-01-17] MEDS: MAGNESIUM OXIDE 400 MG TABLET 200 MG PO (08:50)
[2025-01-17] MEDS: THERAPEUTIC MULTIVITAMINS/MINERALS TAB (*BKC) 1 TABLET PO (08:50)
[2025-01-17] MEDS: EMPAGLIFLOZIN 10 MG TABLET PO (08:51)
[2025-01-17] MEDS: SPIRONOLACTONE 25 MG TABLET PO (08:51)
[2025-01-17] MEDS: PYRIDOXINE HCL 50 MG TABLET 100 MG PO (08:51)
[2025-01-17] MEDS: THIAMINE HCL 100 MG TABLET PO (08:51)
[2025-01-17] MEDS: ATORVASTATIN 10 MG TABLET PO (08:51)
[2025-01-17] MEDS: FUROSEMIDE 40 MG TABLET PO (08:51)
[2025-01-17] MEDS: PANTOPRAZOLE 40 MG TABLET PO ×2 (08:52→17:30)
[2025-01-17 09:17] LABS: Glucose Point of Care 121 mg/dl (65-105)
--- NOTE | 2025-01-17 10:41 | P.PNIM_ITS ---
Progress Note: A&P Assessment and Plan (1) Acute on chronic diastolic (congestive) heart failure: Code(s): I50.33 - Acute on chronic diastolic (congestive) heart failure Status: Acute Assessment and Plan: * BNP 1740 * CXR shown mild interstitial edema and a small right pleural effusion * Last echo from 10/31/24 shown normal LV systolic function with an estimated EF of 60-65%, grade 2 diastolic dysfunction * Patient has history of cirrhosis and is now chronically hypotensive on midodrine * Continue diuresis as tolerated considering blood pressures are low * Continue spironolactone (2) Gallstones: Code(s): K80.20 - Calculus of gallbladder without cholecystitis without obstruction Status: Acute Assessment and Plan: * CT of the abdomen and pelvis showed prominence of common bile duct with a 4 mm stone in the distal common bile duct * GI following and recommends surgical consult * General surgery recommends transfer to tertiary care facility where she can be managed by a team of liver specialists and hepatobiliary surgeons who treat patients with this degree of cirrhosis. * Meld score 20 due to her alcohol liver cirrhosis (3) Fall from ground level: Code(s): W18.30XA - Fall on same level, unspecified, initial encounter Status: Acute Assessment and Plan: * Trauma workup negative for acute fracture * Some imaging redemonstrated a right medial tibial plateau fracture that dated back to October of this year * PT and OT ordered * Patient recently had a long rehab stay and was discharged about 2 weeks ago. She was in a knee immobilizer up until about 2 weeks ago. She was seen by Orthopedic surgery at [facility]. * Continue pain control * Continue fall precautions (4) Pressure ulcer, heel, right, unstageable: Code(s): L89.610 - Pressure ulcer of right heel, unstageable Status: Acute Assessment and Plan: * Wound nurse consulted * Continued dressing changes per Wound nursing orders (5) Pressure ulcer of sacral region: Qualifiers: Pressure injury stage: unspecified pressure injury stage Qualified Code(s): L89.159 - Pressure ulcer of sacral region, unspecified stage Code(s): L89.159 - Pressure ulcer of sacral region, unspecified stage Status: Acute Assessment and Plan: * Wound nurse consulted * Continue dressing changes per Wound nurse orders (6) Insulin dependent type 2 diabetes mellitus: Code(s): E11.9 - Type 2 diabetes mellitus without complications; Z79.4 - halfway (current) use of insulin Status: Chronic Assessment and Plan: Blood sugars ranging 120-136 Hgb A1C 5.1 on 08/26/2025 Accu checks AC/HS High-dose SSI ordered Continue Jardiance, Lantus, mealtime replacement insulin hypoglycemic protocol in place Diabetic diet ordered (7) Hypotension: Qualifiers: Hypotension type: unspecified hypotension type Qualified Code(s): I95.9 - Hypotension, unspecified Code(s): I95.9 - Hypotension, unspecified Status: Chronic Assessment and Plan: * Increase midodrine to 15 mg t.i.d. * Received albumin today * Continue to monitor blood pressures (8) Alcoholic cirrhosis of liver: Qualifiers: Ascites presence: without ascites Qualified Code(s): K70.30 - Alcoholic cirrhosis of liver without ascites Code(s): K70.30 - Alcoholic cirrhosis of liver without ascites Status: Chronic Assessment and Plan: * Of note (9) Chronic kidney disease, stage 3: Qualifiers: Chronic kidney disease stage 3 subtype: stage 3b (GFR 30-44) Qualified Code(s): N18.32 - Chronic kidney disease, stage 3b Code(s): N18.30 - Chronic kidney disease, stage 3 unspecified Status: Chronic Assessment and Plan: * Currently at her baseline function * Initial creatinine 1.45, EGFR 36 (10) Chronic hyponatremia: Code(s): E87.1 - Hypo-osmolality and hyponatremia Status: Chronic Assessment and Plan: * Sodium is 133 and at her baseline * Continue to monitor (11) Chronic anemia: Code(s): D64.9 - Anemia, unspecified Status: Chronic Assessment and Plan: Iron deficiency anemia Likely secondary to her cirrhosis * Hemoglobin 7.6 * Transfuse if less than 7 * Will start ferrous sulfate * Will check iron level Time Spent With Patient Time with patient: 25 - 35 minutes Subjective Date/time seen: 01/17/25 10:41 Interval history: interval summary: this is a 69-year-old female with a significant past medical history of cirrhosis, alcohol abuse, diastolic dysfunction, diabetes, hyponatremia, anemia, chronic venous insufficiency with lipodermatosclerosis who presented to the hospital for evaluation after a ground level fall And hypotension. Workup in the hospital included venous Doppler which was negative for DVT. Chest x-ray showed mild interstitial edema, small right pleural effusion. Left knee x-ray showed medial tibial plateau fracture without significant depression. Abdomen/pelvis CT shown prominence of the common bile duct with a 4 mm stone in the distal common bile duct, multiple calcifications identified in the ivan hepatis without definitive ductal obstruction. left knee CT shown curvilinear subcortical sclerosis underlying the significant portion of the medial tibial plateau without evident acute appearing fracture line or associated marrow edema which could represent either chronic osteochondral lesions/bone infarct or old fracture. Initial labs showed a normal white blood cell count of 7.2, hemoglobin 8.1, ESR 79, sodium 131, creatinine 1.45, EGFR 36, blood sugar ranging 102-163, lactic acid was normal at 1.3, alkaline phosphate 339, CRP 5.2, proBNP 8740. UA was obtained which showed 1+ glucose otherwise unremarkable. EKG showed sinus rhythm with right axis deviation with a rate of 74, QTC 470. Patient was given midodrine and albumin while in the ED as well as Lasix. PT and OT were ordered for evaluation and treatment. Subjective: Patient denies any new complaints today. Labs and imaging reviewed. Review of Systems Review of Systems: All systems reviewed & are unremarkable except as noted in HPI and below Exam Narrative: General: In no acute distress, well nourished Head: atraumatic, no encephalopathy Eyes:PERRLA, sclera clear ENT: moist mucous membranes, nasal passages clear Neck: supple, no JVD, no adenopathy, trachea midline Cardiac: Normal S1 and S2. No murmur, gallops or friction rubs, peripheral pulses intact. Respiratory: Lungs clear to auscultation, no adventitious lung sounds, currently on room air Gastrointestinal: soft, non-distended, non-tender, normoactive bowel sounds. : voiding without difficulty. Extremities: moves all extremities, decreased ROM of LLE/knee, mild edema bi lateral lower extremities Skin: bilateral jackson erythema Neuro: Alert and oriented x4, cranial nerves intact, no neuro deficits. Psych: normal mood, normal affect, interactive Objective Data Vital Signs Vital Signs: Vital Signs - 24 hr 01/16/25 10:45 01/16/25 10:45 01/16/25 10:46 Temperature Pulse Rate 79 79 79 Respiratory Rate 19 19 17 Blood Pressure 84/46 L 104/93 H 90/55 L Pulse Oximetry 100 100 100 Oxygen Delivery 01/16/25 11:02 01/16/25 11:15 01/16/25 11:30 Temperature Pulse Rate 74 75 74 Respiratory Rate 17 15 15 Blood Pressure 86/50 L 91/56 L 89/56 L Pulse Oximetry 100 99 100 Oxygen Delivery 01/16/25 11:31 01/16/25 11:45 01/16/25 12:00 Temperature Pulse Rate 75 75 79 Respiratory Rate 17 15 17 Blood Pressure 89/56 L 91/64 L 100/48 L Pulse Oximetry 100 100 100 Oxygen Delivery 01/16/25 12:15 01/16/25 12:54 01/16/25 13:21 Temperature Pulse Rate 81 81 79 Respiratory Rate 19 16 14 Blood Pressure 113/59 L 81/49 L 79/48 L Pulse Oximetry 100 99 100 Oxygen Delivery 01/16/25 13:24 01/16/25 13:31 01/16/25 13:57 Temperature Pulse Rate 80 80 Respiratory Rate 24 H 15 13 Blood Pressure 86/69 L 95/48 L 87/48 L Pulse Oximetry 100 99 100 Oxygen Delivery 01/16/25 14:00 01/16/25 14:16 01/16/25 14:31 Temperature 96.9 F L Pulse Rate 80 81 79 Respiratory Rate 16 14 20 Blood Pressure 92/44 L 100/53 L 103/60 Pulse Oximetry 100 100 Oxygen Delivery 01/16/25 14:46 01/16/25 15:01 01/16/25 15:37 Temperature Pulse Rate 76 85 79 Respiratory Rate 23 H 15 19 Blood Pressure 85/51 L 97/64 L 100/56 L Pulse Oximetry 100 100 99 Oxygen Delivery 01/16/25 15:46 01/16/25 16:29 01/16/25 20:00 Temperature Pulse Rate 78 Respiratory Rate 18 18 Blood Pressure 101/54 L Pulse Oximetry 100 100 Oxygen Delivery Room Air Room Air 01/16/25 20:00 01/16/25 20:25 01/16/25 23:37 Temperature 96.5 F L Pulse Rate 84 88 93 Respiratory Rate 18 Blood Pressure 110/51 L Pulse Oximetry 98 Oxygen Delivery 01/17/25 00:00 01/17/25 01:15 01/17/25 04:00 Temperature 96.7 F L 96.5 F L Pulse Rate 85 82 81 Respiratory Rate 18 16 Blood Pressure 118/86 103/55 L Pulse Oximetry 99 96 Oxygen Delivery 01/17/25 04:00 01/17/25 08:00 01/17/25 08:30 Temperature 97.6 F Pulse Rate 80 77 70 Respiratory Rate 16 Blood Pressure Pulse Oximetry 94 Oxygen Delivery 01/17/25 08:48 Temperature Pulse Rate Respiratory Rate Blood Pressure 90/54 L Pulse Oximetry Oxygen Delivery Intake/Output Intake/Output: Intake & Output 01/14/25 01/15/25 01/16/25 01/17/25 23:59 23:59 23:59 23:59 Intake Total 560 730 Output Total 500 250 Balance 60 480 Meds/Results Medications: Active Medications Generic Name Dose Route Start Last Admin Trade Name Freq PRN Reason Stop Dose Admin Acetaminophen 650 mg 01/16/25 15:05 Acetaminophen 325 Mg Tablet PO Q4H PRN Mild Pain (1-3) or Fever Hydrocodone Bitart/Acetaminophen 1 tab 01/16/25 15:05 Hydrocodone/Acetaminophen (*Crx) 5-325 Mg Tablet PO Q4H PRN Pain Rated 4-6 Acyclovir 1 applic 01/17/25 09:00 Acyclovir 5% Ointment 15 Gm Tube TOPICAL 02/16/25 08:59 DAILY NEIL Albuterol 2.5 mg 01/16/25 22:54 Albuterol Sulfate Neb 2.5 Mg/3 Ml Inh INHALATION Q8H PRN shortness of breath or wheezing Alendronate Sodium 70 mg 01/21/25 07:00 Alendronate Sodium 70 Mg Tablet PO Tu@0700 [facility] Ascorbic Acid 500 mg 01/17/25 09:00 01/17/25 08:49 Ascorbic Acid 500 Mg Tablet PO 500 mg DAILY NEIL Administration Aspirin 81 mg 01/17/25 09:00 01/17/25 08:47 Aspirin 81 Mg Enteric Tablet PO 81 mg DAILY [facility] Administration Atorvastatin Calcium 10 mg 01/17/25 09:00 01/17/25 08:51 Atorvastatin 10 Mg Tablet PO 10 mg QAM NEIL Administration Calcitriol 0.25 mcg 01/17/25 09:00 Calcitriol 0.25 Mcg Capsule PO SuMoWeFr@0900 [facility] Carvedilol 6.25 mg 01/16/25 22:55 01/17/25 10:11 Carvedilol 6.25 Mg Tablet PO Not Given Q12HR NEIL Collagenase 1 applic 01/17/25 09:00 Collagenase Oint 30 Gm Tube TOPICAL DAILY NEIL Collagenase 1 applic 01/17/25 09:00 Collagenase Oint 30 Gm Tube TOPICAL DAILY NEIL Cyanocobalamin 3,000 mcg 01/17/25 09:00 01/17/25 08:50 Cyanocobalamin 1,000 Mcg Tablet PO 3,000 mcg QAM NEIL Administration Dextrose 12.5 gm 01/16/25 15:05 Dextrose 50% 25 Gm/50 Ml Syringe IV PUSH PRN PRN Hypoglycemia Protocol Empagliflozin 10 mg 01/17/25 09:00 01/17/25 08:51 Empagliflozin 10 Mg Tablet PO 10 mg DAILY NEIL Administration Enoxaparin Sodium 40 mg 01/17/25 09:00 01/17/25 08:47 Enoxaparin 40 Mg/0.4 Ml Syringe SUB-Q 40 mg DAILY NEIL Administration Ferrous Sulfate 325 mg 01/17/25 09:00 01/17/25 08:47 Ferrous Sulfate [address] BY MOUTH 325 mg DAILY NEIL Administration Fluticasone Propionate 2 spray 01/16/25 22:54 Fluticasone Propionate 0.05% Na Spr 16 Gm Btl (*Bkc) NASAL DAILY PRN allergies Folic Acid 0.8 mg 01/17/25 09:00 Folic Acid 0.4 Mg Tablet PO QAM NEIL Furosemide 40 mg 01/17/25 09:00 01/17/25 08:51 Furosemide 40 Mg Tablet PO 40 mg DAILY NEIL Administration Furosemide 40 mg 01/17/25 21:00 Furosemide Inj 40 Mg/4 Ml Vial IV PUSH 01/17/25 21:01 ONCE ONE Glucagon 1 mg 01/16/25 15:05 Glucagon For Inj 1 Mg Vial IM PRN PRN Hypoglycemia Protocol Glucose 15 gm 01/16/25 15:05 01/17/25 08:05 Glucose Oral Gel 15 Gm Of Glucse In 37.5 Gm Tube PO 15 gm PRN PRN Administration Hypoglycemia Protocol Dextrose 1,000 mls @ 100 mls/hr 01/16/25 15:05 Dextrose 5% 1,000 Ml IVPB PRN PRN Hypoglycemia Protocol Albumin Human 100 mls @ 60 mls/hr 01/16/25 18:00 01/17/25 06:13 Albutein IVPB 01/17/25 13:39 60 mls/hr Q6HR NEIL Administration Insulin Aspart 4 - 8 units 01/16/25 17:00 01/17/25 08:45 Insulin Aspart (*Bkc) 100 Units/Ml SUB-Q Not Given TIDWM [facility] Protocol Insulin Aspart 3 units 01/17/25 08:00 01/17/25 10:10 Insulin Aspart (*Bkc) 100 Units/Ml SUB-Q Not Given TIDWM [facility] Insulin Glargine 15 units 01/16/25 22:55 01/16/25 23:39 Insulin Glargine (*Bkc) 100 Units/Ml SUB-Q 15 units HS [facility] Administration Loperamide HCl 2 mg 01/16/25 22:54 Loperamide Hcl 2 Mg Capsule PO QID PRN loose stool Magnesium Oxide 200 mg 01/17/25 09:00 01/17/25 08:50 Magnesium Oxide 400 Mg Tablet PO 200 mg QAM [facility] Administration Midodrine 10 mg 01/16/25 22:54 01/17/25 08:48 Midodrine Hcl 10 Mg Tablet PO 10 mg TID PRN Administration Hypotension Miscellaneous Information 1 each 01/17/25 00:01 01/16/25 23:47 Tacromilus 0.03% Ointment Is Nonformulary; Can Pt Use From Home Or Pharmacy Carries 0.1% O XX 02/16/25 00:00 Not Given CLARIFY [facility] Multi-Ingred Cream/Lotion/Oil/Oint 1 applic 01/17/25 09:00 Eucerin Cream 120 Gm Jar TOPICAL DAILY [facility] Multivitamins/Calcium 1 tablet 01/17/25 09:00 01/17/25 08:50 Therapeutic Multivitamins/Minerals Tab (*Bkc) PO 1 tablet DAILY [facility] Administration Ondansetron HCl 4 mg 01/16/25 15:05 Ondansetron Inj 4 Mg/2 Ml Vial IV PUSH Q4H PRN Nausea Pantoprazole Sodium 40 mg 01/17/25 09:00 01/17/25 08:52 Pantoprazole 40 Mg Tablet PO 40 mg BID [facility] Administration Potassium Chloride 10 meq 01/17/25 08:00 01/17/25 08:47 Potassium Chloride 10 Meq Er Tablet PO 10 meq DAILY@0800 [facility] Administration Pyridoxine HCl 100 mg 01/17/25 09:00 01/17/25 08:51 Pyridoxine Hcl 50 Mg Tablet PO 100 mg QAM [facility] Administration Senna 8.6 mg 01/16/25 22:54 Sennosides 8.6 Mg Tablet PO DAILY PRN constipation Spironolactone 25 mg 01/17/25 09:00 01/17/25 08:51 Spironolactone 25 Mg Tablet PO 25 mg QAM NEIL Administration Tacrolimus 1 applic 01/17/25 09:00 Tacrolimus 0.03% 30 Gm Ointment TOPICAL BID NEIL Thiamine HCl 100 mg 01/17/25 09:00 01/17/25 08:51 Thiamine Hcl 100 Mg Tablet PO 100 mg QAM NEIL Administration Radiology Results: ITS Impressions Venous Doppler Study 01/16/25 11:37 IMPRESSION: 1: No lower extremity deep venous thrombosis. Chest X-Ray 01/16/25 12:37 Impression: 1: Mild interstitial edema. 2: Small right pleural effusion. Knee X-Ray 01/16/25 12:39 Impression: 1: Medial tibial plateau fracture without significant depression. Recommend correlation with CT or MRI. Abdomen/Pelvis CT 01/16/25 12:46 IMPRESSION: Prominence of the common bile duct with a 4 mm stone in the distal common bile duct. Multiple calcifications have been identified within the ivan hepatis on prior studies, without definitive ductal obstruction, present on the current examination secondary to positioning and technique. Remaining findings within the lower chest, abdomen and pelvis are chronic and unchanged from prior study, as detailed above. Knee CT 01/16/25 13:11 IMPRESSION: 1. Curvilinear subarticular sclerosis underlying the significant portion of the medial tibial plateau without evident acute appearing fracture line or associated marrow edema which could represent either chronic osteochondral lesion/bone infarct or old fracture. Could consider further evaluation with MRI if there is high suspicion for acute fracture. Labs Labs: Laboratory Results - last 24 hr 01/16/25 01/16/25 01/16/25 11:07 11:08 11:51 WBC 7.2 RBC 2.62 L Hgb 8.1 L Hct 25.8 L MCV 98.5 MCH 30.9 MCHC 31.4 L RDW 15.0 H Plt Count 225 D MPV 10.6 H Immature Gran % (Auto) 0.7 H Neut % (Auto) 73.4 H Lymph % (Auto) 9.[address] [place] % (Auto) 9.3 H Eos % (Auto) 6.8 H Baso % (Auto) 0.7 Lymph # (Auto) 0.[address] [place] # (Auto) 0.7 H Eos # (Auto) 0.5 H Baso # (Auto) 0.1 Abs Immat Gran (auto) 0.05 H Absolute Neuts (auto) 5.3 Absolute Nucleated RBC 0.000 Nucleated RBC % 0.0 ESR 79 H PT 16.3 H INR 1.3 APTT 38.6 H Sodium 131 L Potassium 4.3 Chloride 100 Carbon Dioxide 22 Anion Gap 9 BUN 28 H Creatinine 1.45 H Estim Creat Clear Calc 36 Estimated GFR 36 L Glucose 102 POC Capillary Glucose Lactic Acid 1.3 Calcium 8.0 L Total Bilirubin 0.9 AST 25 ALT 20 Alkaline Phosphatase 339 H C-Reactive Protein 5.2 H NT-Pro-B Natriuret Pep 8740 H Total Protein 6.0 L Albumin 2.8 L Urine Color Yellow Urine Appearance Clear Urine pH 5.5 Ur Specific [place] 1.011 Urine Protein Negative Urine Glucose (UA) 1+ H Urine Ketones Negative Ur Blood (Man) Negative Urine Nitrate Negative Urine Bilirubin Negative Urine Urobilinogen 0.2 Leukocyte Esterase Rfl Negative 01/16/25 01/16/25 01/17/25 18:46 20:29 05:20 WBC 7.6 RBC 2.40 L Hgb 7.6 L Hct 24.3 L MCV 101.3 H MCH 31.7 MCHC 31.3 L RDW 14.9 H Plt Count 199 MPV 10.2 Immature Gran % (Auto) 0.5 Neut % (Auto) 74.4 H Lymph % (Auto) 10.[address] [place] % (Auto) 8.7 H Eos % (Auto) 5.8 H Baso % (Auto) 0.4 Lymph # (Auto) 0.[address] [place] # (Auto) 0.7 H Eos # (Auto) 0.4 H Baso # (Auto) 0.0 Abs Immat Gran (auto) 0.04 H Absolute Neuts (auto) 5.6 Absolute Nucleated RBC 0.000 Nucleated RBC % 0.0 ESR PT INR APTT Sodium 133 L Potassium 4.4 Chloride 100 Carbon Dioxide 24 Anion Gap 9 BUN 30 H Creatinine 1.90 H Estim Creat Clear Calc 28 Estimated GFR 26 L Glucose 68 POC Capillary Glucose 163 H 176 H Lactic Acid Calcium 8.5 Total Bilirubin 1.0 AST 20 ALT 16 Alkaline Phosphatase 227 H C-Reactive Protein NT-Pro-B Natriuret Pep Total Protein 6.0 L Albumin 3.5 Urine Color Urine Appearance Urine pH Ur Specific [place] Urine Protein Urine Glucose (UA) Urine Ketones Ur Blood (Man) Urine Nitrate Urine Bilirubin Urine Urobilinogen Leukocyte Esterase Rfl 01/17/25 01/17/25 01/17/25 07:31 07:35 08:01 WBC RBC Hgb Hct MCV MCH MCHC RDW Plt Count MPV Immature Gran % (Auto) Neut % (Auto) Lymph % (Auto) [place] % (Auto) Eos % (Auto) Baso % (Auto) Lymph # (Auto) [place] # (Auto) Eos # (Auto) Baso # (Auto) Abs Immat Gran (auto) Absolute Neuts (auto) Absolute Nucleated RBC Nucleated RBC % ESR PT INR APTT Sodium Potassium Chloride Carbon Dioxide Anion Gap BUN Creatinine Estim Creat Clear Calc Estimated GFR Glucose POC Capillary Glucose 45 L* 41 L* 77 Lactic Acid Calcium Total Bilirubin AST ALT Alkaline Phosphatase C-Reactive Protein NT-Pro-B Natriuret Pep Total Protein Albumin Urine Color Urine Appearance Urine pH Ur Specific [place] Urine Protein Urine Glucose (UA) Urine Ketones Ur Blood (Man) Urine Nitrate Urine Bilirubin Urine Urobilinogen Leukocyte Esterase Rfl 01/17/25 01/17/25 08:29 09:14 WBC RBC Hgb Hct MCV MCH MCHC RDW Plt Count MPV Immature Gran % (Auto) Neut % (Auto) Lymph % (Auto) [place] % (Auto) Eos % (Auto) Baso % (Auto) Lymph # (Auto) [place] # (Auto) Eos # (Auto) Baso # (Auto) Abs Immat Gran (auto) Absolute Neuts (auto) Absolute Nucleated RBC Nucleated RBC % ESR PT INR APTT Sodium Potassium Chloride Carbon Dioxide Anion Gap BUN Creatinine Estim Creat Clear Calc Estimated GFR Glucose POC Capillary Glucose 93 121 H Lactic Acid Calcium Total Bilirubin AST ALT Alkaline Phosphatase C-Reactive Protein NT-Pro-B Natriuret Pep Total Protein Albumin Urine Color Urine Appearance Urine pH Ur Specific [place] Urine Protein Urine Glucose (UA) Urine Ketones Ur Blood (Man) Urine Nitrate Urine Bilirubin Urine Urobilinogen Leukocyte Esterase [facility] VTE Prophylaxis VTE prophylaxis: pharmacologic ordered
[2025-01-17] MEDS: calcitrioL 0.25 MCG CAPSULE PO (11:37)
[2025-01-17] MEDS: FOLIC ACID 0.4 MG TABLET 0.8 MG PO (11:38)
[2025-01-17] MEDS: EUCERIN CREAM 120 GM JAR 1 APPLIC TOPICAL (11:41)
[2025-01-17 11:48] LABS: Glucose Point of Care 120 mg/dl (65-105)
--- NOTE | 2025-01-17 11:58 | PCPTNOTE ---
Attempted PT evaluation. Per nursing, supine BP low at this time and recommending attempting therapy at later time.
[2025-01-17] MEDS: INSULIN ASPART (*BKC) 100 UNITS/ML SUB-Q ×2 (12:23→17:30)
--- NOTE | 2025-01-17 13:09 | PC.NURSE ---
Agustina Naik [employer] notified of holding am coreg due to decreased bp and holding am scheduled novolog due to glucose 41.
--- NOTE | 2025-01-17 14:22 | WPDCN ---
Assessment and Plan Assessment and plan (1) Gallstones: Code(s): K80.20 - Calculus of gallbladder without cholecystitis without obstruction Status: Acute Assessment and Plan: Patient has gallstones noted on CT scan. There is no evidence of acute cholecystitis. Patient has no symptoms of gallbladder disease. Recommend observation of the gallstones. No need for emergent surgical management due to no evidence of acute cholecystitis. She does have a high MELD score of 20 due to her alcoholic liver cirrhosis. Given the high risks of xi operative morbidity and mortality with a MELD score this high I would not recommend any surgical management. If she were to need further outpatient evaluation or he emergent surgery due to an emergent condition then I would recommend outpatient evaluation or transfer to a tertiary care facility where she can be managed by a team of interventional tech and hepatobiliary surgeons who treat patients with this degree of cirrhosis. (2) Choledocholithiasis: Code(s): K80.50 - Calculus of bile duct without cholangitis or cholecystitis without obstruction Status: Acute Assessment and Plan: Currently incidental non symptomatic. Defer to Dr. Weaver with the patient should have an ERCP to remove the common bile duct stone if it is still in place. Would not recommend a laparoscopic cholecystectomy at this time. (3) Alcoholic cirrhosis of liver: Qualifiers: Ascites presence: without ascites Qualified Code(s): K70.30 - Alcoholic cirrhosis of liver without ascites Code(s): K70.30 - Alcoholic cirrhosis of liver without ascites Status: Chronic Assessment and Plan: Seems to be somewhat uncompensated given her ascites. Management as per GI. HPI Data of Consult Date/Time: 01/17/25 14:22 Requesting Physician: Agustina Naik APRN Primary Care Provider: Ghanshyam Ruiz APRN Consult Narrative Reason for consult: Choledocholithiasis, cholelithiasis, cirrhosis. Narrative: Lou Islas is a 69 year old female who was admitted to the hospital after a fall at her snf facility. She had a left lower extremity fracture which was treated non operatively does with the brace. She had judged the distance for transfer and ended up falling but did not lose consciousness. She was transported to the emergency room and admitted to the hospital. CT scan abdomen pelvis was performed incidentally found was 4mm common bile duct stone and cholelithiasis. No evidence of cholecystitis was noted on CT scan. The patient does have a nodular and small liver highly suggestive of cirrhosis as well as some ascites. Patient is still using alcohol. She denies any pain or nausea with eating. She denies any abdominal pain whatsoever. Liver enzymes are no normal aside from slightly elevated INR and alkaline phosphatase. GI consultation from Dr. Weaver was obtained he did calculate the patient's MELD score and it was 20. Review of Systems Review of Systems: The remainder of the review of systems to include constitutional, HEENT, cardiovascular, respiratory, GI, , integumentary, musculoskeletal, endocrine, immunologic, hematologic, psychiatric, and neurologic are all negative except for which is mentioned above in the HPI. [facility] Past Medical History Medical History Alcoholic cirrhosis of liver Chronic venous insufficiency of lower extremity Stage 3a chronic kidney disease Shingles ANTHONY (obstructive sleep apnea) Osteoporosis Gram-negative bacteremia Anemia of chronic disease Ascites Obesity (BMI 30-39.9) Hyperlipidemia, unspecified Carotid artery disease Alcohol abuse Osteoarthritis Diastolic dysfunction ECHO 10/2023: normal LV systolic function, estimated EF of 60-65%, abnormal diastolic dysfunction. Left-sided carotid artery disease US 01/2021: 50 to 69% stenosis of the left ICA. Orthostatic hypotension on midodrine, chronic hypotension, previously caused syncope and frequent falls and subsequent fractures. Insulin dependent type 2 diabetes mellitus A1C 5.1% 08/2024 Hypertension Chronic hyponatremia Eczema Periprosthetic fracture of femur following total replacement of hip (01/2020) Non operative treatment. GERD (gastroesophageal reflux disease) Surgical History Surgical History Status post open reduction with internal fixation of fracture (05/30/21) ORIF of comminuted intra-articular fracture of the distal left femur, done at [facility]. History of hysterectomy (2005) Due to uterine fibroids and endometriosis. History of bilateral cataract extraction History of lumbar surgery (2005) L1-L3. History of right hip replacement (2005) Per Dr. Curiel in [place]. Family History Family History Father Heart attack Mother Diabetes mellitus COPD (chronic obstructive pulmonary disease) Hypertension Afib Sibling Amputation above knee Diabetes mellitus Father , At age 50 Acute myocardial infarction Sibling , At age 50 Pancreatic cancer Social History Social History Social History: The patient lives in her own home in [place]. She has been twice, her 1st and she has since her 2nd . She has no children. She moved to this area within the last couple of years from [place] to be close to her 3 remaining siblings. She worked from home for a [employer] doing [employer] and she has a master's degree in statistics. She has recently retired.She smoked up to 2 packs of cigarettes a day before quitting in 2005. She drinks 2 mixed drinks a day, each containing a shot of vodka which equals out to about 1 L to 1.7 L of vodka a week. She denies illicit substance use. Surrogate decision maker: Miladys Jensen, sister. Code status: Full code. Smoking packs per day: 2 Smoking cigarettes per day: 40.0 Years smoked: 30 Smoking pack-years: 60.00 Smoking status: Former smoker Smokeless tobacco user: chewing tobacco Second hand tobacco smoke exposure: Yes Alcohol intake: current Drinks per week: 14 Substance use: never Substance use type: does not use Do You Feel Safe in your Home?: Yes Lack of Transportation: No Lack of Food: Never True Current Housing: I Have Housing Concerned About Future Housing: No Difficulty Paying Gas/Electric Bills: No Difficulty Paying for Meds: No Currently Unemployed: No Education: Master's Degree or Higher Difficulty w/ Childcare or Family Care: No Living arrangements: alone Occupation/Education: retired Gender identity (if verbalized by the patient): Female Sexual Orientation (if Verbalized by the Patient): Straight or Heterosexual Spiritual care concerns: No Meds Home Medications and Allergies Home Medications ?Medication ?Instructions ?Recorded ?Confirmed ?Type fluticasone propionate 50 1 spray intranasal DAILY PRN 08/16/20 01/16/25 History mcg/actuation nasal allergies spray,suspension thiamine HCl (vitamin B1) 100 mg 100 mg PO QAM #30 tabs 08/18/20 01/16/25 Rx tablet (Vitamin B-1) [id number]-ooty-minerals 1 tablet PO DAILY #30 tabs 01/16/21 01/16/25 Rx (Multiple Vitamin, Womens tablet) mecobalamin (vitamin B12) 1,000 3,000 mcg PO DAILY 05/13/21 01/16/25 History mcg chewable tablet pyridoxine (vitamin B6) 100 mg 100 mg PO DAILY 05/13/21 01/16/25 History tablet magnesium oxide 400 mg (241.3 mg 250 mg PO QAM 06/06/21 01/16/25 History magnesium) tablet blood sugar diagnostic #360 ea 10/31/22 01/16/25 Rx empagliflozin 10 mg tablet 10 mg PO DAILY #30 tabs 10/26/23 01/16/25 Rx (Jardiance) spironolactone 25 mg tablet 25 mg PO QAM #30 tabs 10/26/23 01/16/25 Rx alendronate 70 mg tablet 70 mg PO WEEKLY #12 tabs 12/12/23 01/16/25 Rx atorvastatin 10 mg tablet 10 mg PO QAM #90 tabs 06/10/24 01/16/25 Rx ascorbate calcium (vitamin C) 500 500 mg PO DAILY 06/20/24 01/16/25 History mg tablet aspirin 81 mg tablet,delayed 81 mg PO DAILY 06/20/24 01/16/25 History release folic acid 800 mcg tablet 0.8 mg PO DAILY 06/20/24 01/16/25 History tacrolimus 0.03 % topical ointment 1 applic topical BID 08/06/24 01/16/25 History calcitriol 0.25 mcg capsule 0.25 mcg PO 4XW #16 caps 08/23/24 01/16/25 Rx pen needle, diabetic 32 gauge x #360 ea 09/11/24 01/16/25 Rx /32 (BD Muriel 2nd Gen Pen Needle) blood-glucose sensor (Dexcom G7 #3 ea 09/13/24 01/16/25 Rx Sensor device) potassium chloride 10 mEq 10 meq PO DAILY #90 caps 09/30/24 01/16/25 Rx capsule,extended release insulin glargine 100 unit/mL (3 See Rx Instructions .Route 10/25/24 01/16/25 Rx mL) subcutaneous pen (Lantus .COMPLEX #15 mL Solostar U-100 Insulin) carvedilol 6.25 mg tablet 6.25 mg PO Q12H #60 tabs 12/31/24 01/16/25 Rx acyclovir 5 % topical cream 1 applic topical DAILY 01/16/25 01/16/25 History (Zovirax) albuterol sulfate 2.5 mg/3 mL 2.5 mg inhalation Q8H PRN 01/16/25 01/16/25 History (0.083 %) solution for nebulization shortness of breath or wheezing collagenase clostridium histo. 250 1 applic topical DAILY 01/16/25 01/16/25 History unit/gram topical ointment (Santyl) collagenase clostridium histo. 250 1 applic topical DAILY 01/16/25 01/16/25 History unit/gram topical ointment (Santyl) ferrous sulfate 325 mg (65 mg 325 mg PO DAILY 01/16/25 01/16/25 History iron) tablet (Leonard-Time) furosemide 40 mg tablet 40 mg PO DAILY 01/16/25 01/16/25 History insulin lispro 100 unit/mL 3 unit subcut TID 01/16/25 01/16/25 History subcutaneous pen (Humalog KwikPen (U-100) Insulin) lanolin alcohols-mineral 1 applic topical DAILY 01/16/25 01/16/25 History oil-w.petrolatum-ceresin topical cream loperamide 2 mg capsule 2 mg PO QID PRN loose stool 01/16/25 01/16/25 History (Anti-Diarrheal (loperamide)) midodrine 10 mg tablet 10 mg PO TID PRN dizziness or 01/16/25 01/16/25 History vertigo ondansetron 4 mg disintegrating 4 mg PO Q6H PRN nausea and vomiting 01/16/25 01/16/25 History tablet pantoprazole 40 mg tablet,delayed 40 mg PO BID 01/16/25 01/16/25 History release sennosides 8.6 mg tablet (senna) 8.6 mg PO DAILY PRN constipation 01/16/25 01/16/25 History Allergies Allergy/AdvReac Type Severity Reaction Status Date / Time codeine AdvReac Unknown Headache Verified 01/16/25 17:56 Vital Signs Vital Signs - 24 hr 01/16/25 14:31 01/16/25 14:46 01/16/25 15:01 Temperature Pulse Rate 79 76 85 Respiratory Rate 20 23 H 15 Blood Pressure 103/60 85/51 L 97/64 L Pulse Oximetry 100 100 100 Oxygen Delivery 01/16/25 15:37 01/16/25 15:46 01/16/25 16:29 Temperature Pulse Rate 79 78 Respiratory Rate 19 18 18 Blood Pressure 100/56 L 101/54 L Pulse Oximetry 99 100 100 Oxygen Delivery Room Air 01/16/25 20:00 01/16/25 20:00 01/16/25 20:25 Temperature 35.8 C L Pulse Rate 84 88 Respiratory Rate 18 Blood Pressure 110/51 L Pulse Oximetry 98 Oxygen Delivery Room Air 01/16/25 23:37 01/17/25 00:00 01/17/25 01:15 Temperature 35.9 C L Pulse Rate 93 85 82 Respiratory Rate 18 Blood Pressure 118/86 Pulse Oximetry 99 Oxygen Delivery 01/17/25 04:00 01/17/25 04:00 01/17/25 08:00 Temperature 35.8 C L Pulse Rate 81 80 77 Respiratory Rate 16 Blood Pressure 103/55 L Pulse Oximetry 96 Oxygen Delivery 01/17/25 08:30 01/17/25 08:48 01/17/25 11:57 Temperature 36.4 C 36.1 C L Pulse Rate 70 82 Respiratory Rate 16 16 Blood Pressure 90/54 L 95/55 L Pulse Oximetry 94 99 Oxygen Delivery 01/17/25 12:00 Temperature Pulse Rate 83 Respiratory Rate Blood Pressure Pulse Oximetry Oxygen Delivery Exam Const: General: comfortable and no acute distress HENMT: Ears: TM's normal bilaterally Face/Nose/Sinus: Normal nares present Mouth: Yes moist mucous membranes Eyes: General: appearance normal, both eyes and all related structures Sclera: sclerae normal (No scleral icterus) Pupils: Equal, round and reactive pupils present EOM: EOMs intact bilaterally Neck: Neck: supple and no JVD Resp: Effort & Inspection: normal respiratory effort Auscultation: clear to auscultation bilaterally Cardio: Rate: regular rate Rhythm: regular rhythm GI: Other: Abdomen is obese and mildly firm. Says some fluid wave is suggested on palpation. Likely has some ascites which is not very tense. No abdominal tenderness to palpation. No ventral hernias. Skin: General skin exam: normal color and no rashes or lesions noted Neuro: Speech: normal speech Sensory Exam: normal sensation Extrem: General: normal to inspection Psych: Mental Status: mental status grossly normal Affect: normal affect Results Labs 01/17/25 05:20 01/17/25 05:20 Labs: Short CBC 01/17/25 Range/Units 05:20 WBC 7.6 (4.5-10.0) K/mm3 Hgb 7.6 L (12.0-15.0) g/dL Hct 24.3 L (37.0-47.0) % Plt Count 199 (150-375) k/mm3 BMP 01/17/25 05:20 Sodium 133 L Potassium 4.4 Chloride 100 Carbon Dioxide 24 BUN 30 H Creatinine 1.90 H Glucose 68 Calcium 8.5 Liver Function 01/17/25 Range/Units 05:20 Total Bilirubin 1.0 (0.2-1.3) mg/dL AST 20 (14-36) U/L ALT 16 (6-35) U/L Alkaline Phosphatase 227 H (38-126) U/L Albumin 3.5 (3.5-5.1) g/dL Imaging Radiologist's impression: CT Scan Report Signed Patient: Lou Islas : 1955 MR#: [id number] Age: 69 Acct:[id number] Loc: [facility] ADM Date: 01/16/25Attending Dr: Ordering Physician: Digna Albarado PA-C Date of Service: 01/16/25 Procedure(s): CT abdomen pelvis w con Accession Number(s): [id number] cc: Digna Albarado PA-C; Ghanshyam Ruiz APN~ CLINICAL INDICATION: Abdominal pain and swelling. Patient initially presented after a fall. COMPARISON: 10/31/2024. TECHNIQUE: Multiple contiguous axial images of the abdomen and pelvis were performed following the administration of with 100 mL Omnipaque-350 intravenous contrast The dose-length product (DLP) was 779.06 mGy-cm. Automated exposure control and iterative reconstruction technique were employed. FINDINGS/OBSERVATIONS: Visualized lower thorax: Right-sided pleural effusion with adjacent compressive atelectasis. The remainder of the bilateral lung freeman are clear. The heart is of normal size. Calcification of the pericardium is also detected, unchanged from prior. Small hiatal hernia is present. Liver: The liver is decreased in size and nodular in contour consistent with portal hypertension. Gallbladder and biliary system: The gallbladder contains multiple calcified stones, but is otherwise unremarkable. The common bile duct is somewhat distended, and contains a 4 mm calculus, possibly causing the patient's symptoms. Pancreas: The pancreas enhances homogeneously without ductal dilatation. Spleen: The spleen enhances homogeneously and is enlarged measuring 13 cm in longitudinal dimension. Kidneys: The bilateral kidneys enhance symmetrically without hydronephrosis or renal calculi. Adrenal glands: Unremarkable. Gastrointestinal tract: Colonic diverticulosis. Appendix: The appendix is not definitively visualized. However, no pericecal inflammatory change is identified suggest the presence of acute appendicitis. Vasculature: Densely calcified atherosclerotic disease. Lymph nodes: No pathologically enlarged or morphologically suspicious lymph nodes within the retroperitoneum or at the root of the mesentery. Pelvic structures: The bladder is only minimally distended, and demonstrates thickened vidal, likely secondary to underdistention. The uterus is either surgically absent or markedly atrophic. Trace intra-abdominal and intrapelvic ascites, an interval change from prior. Body wall and musculoskeletal: Small fat-containing umbilical hernia. Age advanced degenerative disease within the lumbosacral spine with compression fractures at the level of L5, L4 and L2 (unchanged). Prosthetic right hip with periprosthetic fracture and callus formation. IMPRESSION: Prominence of the common bile duct with a 4 mm stone in the distal common bile duct. Multiple calcifications have been identified within the ivan hepatis on prior studies, without definitive ductal obstruction, present on the current examination secondary to positioning and technique. Remaining findings within the lower chest, abdomen and pelvis are chronic and unchanged from prior study, as detailed above. Reviewed, dictated and finalized at location A.
--- NOTE | 2025-01-17 14:23 | P.PNGI_ITS ---
Progress Note: A&P Assessment and Plan (1) Choledocholithiasis: Code(s): K80.50 - Calculus of bile duct without cholangitis or cholecystitis without obstruction Status: Acute (2) Alcoholic cirrhosis of liver with ascites: Code(s): K70.31 - Alcoholic cirrhosis of liver with ascites Status: Acute (3) Gallstones: Code(s): K80.20 - Calculus of gallbladder without cholecystitis without obstruction Status: Acute Plan Patient with asymptomatic incidental cholelithiasis and choledocholithiasis. Awaiting surgical opinion to decide best course of action, discharge home with observation only versus laparoscopic cholecytectomy. Time Spent With Patient Time with patient: less than 15 minutes Subjective Date/time seen: 01/17/25 14:23 Interval history: no new symptoms. Patient is still asymptomatic. Objective Data Vital Signs Vital Signs: Vital Signs - 24 hr 01/16/25 14:31 01/16/25 14:46 01/16/25 15:01 Temperature Pulse Rate 79 76 85 Respiratory Rate 20 23 H 15 Blood Pressure 103/60 85/51 L 97/64 L Pulse Oximetry 100 100 100 Oxygen Delivery 01/16/25 15:37 01/16/25 15:46 01/16/25 16:29 Temperature Pulse Rate 79 78 Respiratory Rate 19 18 18 Blood Pressure 100/56 L 101/54 L Pulse Oximetry 99 100 100 Oxygen Delivery Room Air 01/16/25 20:00 01/16/25 20:00 01/16/25 20:25 Temperature 96.5 F L Pulse Rate 84 88 Respiratory Rate 18 Blood Pressure 110/51 L Pulse Oximetry 98 Oxygen Delivery Room Air 01/16/25 23:37 01/17/25 00:00 01/17/25 01:15 Temperature 96.7 F L Pulse Rate 93 85 82 Respiratory Rate 18 Blood Pressure 118/86 Pulse Oximetry 99 Oxygen Delivery 01/17/25 04:00 01/17/25 04:00 01/17/25 08:00 Temperature 96.5 F L Pulse Rate 81 80 77 Respiratory Rate 16 Blood Pressure 103/55 L Pulse Oximetry 96 Oxygen Delivery 01/17/25 08:30 01/17/25 08:48 01/17/25 11:57 Temperature 97.6 F 97.0 F L Pulse Rate 70 82 Respiratory Rate 16 16 Blood Pressure 90/54 L 95/55 L Pulse Oximetry 94 99 Oxygen Delivery 01/17/25 12:00 Temperature Pulse Rate 83 Respiratory Rate Blood Pressure Pulse Oximetry Oxygen Delivery Intake/Output Intake/Output: Intake & Output 01/14/25 01/15/25 01/16/25 01/17/25 23:59 23:59 23:59 23:59 Intake Total 560 1070 Output Total 500 250 Balance 60 820 Meds/Results Medications: Active Medications Generic Name Dose Route Start Last Admin Trade Name Freq PRN Reason Stop Dose Admin Acetaminophen 650 mg 01/16/25 15:05 Acetaminophen 325 Mg Tablet PO Q4H PRN Mild Pain (1-3) or Fever Hydrocodone Bitart/Acetaminophen 1 tab 01/16/25 15:05 Hydrocodone/Acetaminophen (*Crx) 5-325 Mg Tablet PO Q4H PRN Pain Rated 4-6 Albuterol 2.5 mg 01/16/25 22:54 Albuterol Sulfate Neb 2.5 Mg/3 Ml Inh INHALATION Q8H PRN shortness of breath or wheezing Alendronate Sodium 70 mg 01/21/25 07:00 Alendronate Sodium 70 Mg Tablet PO Tu@0700 NEIL Ascorbic Acid 500 mg 01/17/25 09:00 01/17/25 08:49 Ascorbic Acid 500 Mg Tablet PO 500 mg DAILY NEIL Administration Aspirin 81 mg 01/17/25 09:00 01/17/25 08:47 Aspirin 81 Mg Enteric Tablet PO 81 mg DAILY NEIL Administration Atorvastatin Calcium 10 mg 01/17/25 09:00 01/17/25 08:51 Atorvastatin 10 Mg Tablet PO 10 mg QAM NEIL Administration Calcitriol 0.25 mcg 01/17/25 09:00 01/17/25 11:37 Calcitriol 0.25 Mcg Capsule PO 0.25 mcg [id number] NEIL Administration Carvedilol 6.25 mg 01/16/25 22:55 01/17/25 10:11 Carvedilol 6.25 Mg Tablet PO Not Given Q12HR NEIL Cyanocobalamin 3,000 mcg 01/17/25 09:00 01/17/25 08:50 Cyanocobalamin 1,000 Mcg Tablet PO 3,000 mcg QAM NEIL Administration Dextrose 12.5 gm 01/16/25 15:05 Dextrose 50% 25 Gm/50 Ml Syringe IV PUSH PRN PRN Hypoglycemia Protocol Empagliflozin 10 mg 01/17/25 09:00 01/17/25 08:51 Empagliflozin 10 Mg Tablet PO 10 mg DAILY NEIL Administration Enoxaparin Sodium 40 mg 01/17/25 09:00 01/17/25 08:47 Enoxaparin 40 Mg/0.4 Ml Syringe SUB-Q 40 mg DAILY NEIL Administration Ferrous Sulfate 325 mg 01/17/25 09:00 01/17/25 08:47 Ferrous Sulfate [address] BY MOUTH 325 mg DAILY NEIL Administration Fluticasone Propionate 2 spray 01/16/25 22:54 Fluticasone Propionate 0.05% Na Spr 16 Gm Btl (*Bkc) NASAL DAILY PRN allergies Folic Acid 0.8 mg 01/17/25 09:00 01/17/25 11:38 Folic Acid 0.4 Mg Tablet PO 0.8 mg QAM NEIL Administration Furosemide 40 mg 01/17/25 09:00 01/17/25 08:51 Furosemide 40 Mg Tablet PO 40 mg DAILY NEIL Administration Furosemide 40 mg 01/17/25 21:00 Furosemide Inj 40 Mg/4 Ml Vial IV PUSH 01/17/25 21:01 ONCE ONE Glucagon 1 mg 01/16/25 15:05 Glucagon For Inj 1 Mg Vial IM PRN PRN Hypoglycemia Protocol Glucose 15 gm 01/16/25 15:05 01/17/25 08:05 Glucose Oral Gel 15 Gm Of Glucse In 37.5 Gm Tube PO 15 gm PRN PRN Administration Hypoglycemia Protocol Dextrose 1,000 mls @ 100 mls/hr 01/16/25 15:05 Dextrose 5% 1,000 Ml IVPB PRN PRN Hypoglycemia Protocol Insulin Aspart 4 - 8 units 01/16/25 17:00 01/17/25 12:24 Insulin Aspart (*Bkc) 100 Units/Ml SUB-Q Not Given TIDWM [facility] Protocol Insulin Aspart 3 units 01/17/25 08:00 01/17/25 12:23 Insulin Aspart (*Bkc) 100 Units/Ml SUB-Q 3 units TIDWM NEIL Administration Insulin Glargine 15 units 01/16/25 22:55 01/16/25 23:39 Insulin Glargine (*Bkc) 100 Units/Ml SUB-Q 15 units HS NEIL Administration Loperamide HCl 2 mg 01/16/25 22:54 Loperamide Hcl 2 Mg Capsule PO QID PRN loose stool Magnesium Oxide 200 mg 01/17/25 09:00 01/17/25 08:50 Magnesium Oxide 400 Mg Tablet PO 200 mg QAM [facility] Administration Midodrine 10 mg 01/16/25 22:54 01/17/25 08:48 Midodrine Hcl 10 Mg Tablet PO 10 mg TID PRN Administration Hypotension Miscellaneous Information 1 each 01/17/25 00:01 01/16/25 23:47 Tacromilus 0.03% Ointment Is Nonformulary; Can Pt Use From Home Or Pharmacy Carries 0.1% O XX 02/16/25 00:00 Not Given CLARIFY [facility] Multi-Ingred Cream/Lotion/Oil/Oint 1 applic 01/17/25 09:00 01/17/25 11:41 Eucerin Cream 120 Gm Jar TOPICAL 1 applic DAILY [facility] Administration Multivitamins/Calcium 1 tablet 01/17/25 09:00 01/17/25 08:50 Therapeutic Multivitamins/Minerals Tab (*Bkc) PO 1 tablet DAILY [facility] Administration Ondansetron HCl 4 mg 01/16/25 15:05 Ondansetron Inj 4 Mg/2 Ml Vial IV PUSH Q4H PRN Nausea Pantoprazole Sodium 40 mg 01/17/25 09:00 01/17/25 08:52 Pantoprazole 40 Mg Tablet PO 40 mg BID [facility] Administration Potassium Chloride 10 meq 01/17/25 08:00 01/17/25 08:47 Potassium Chloride 10 Meq Er Tablet PO 10 meq DAILY@0800 [facility] Administration Pyridoxine HCl 100 mg 01/17/25 09:00 01/17/25 08:51 Pyridoxine Hcl 50 Mg Tablet PO 100 mg QAM [facility] Administration Senna 8.6 mg 01/16/25 22:54 Sennosides 8.6 Mg Tablet PO DAILY PRN constipation Spironolactone 25 mg 01/17/25 09:00 01/17/25 08:51 Spironolactone 25 Mg Tablet PO 25 mg QAM [facility] Administration Tacrolimus 1 applic 01/17/25 09:00 Tacrolimus 0.03% 30 Gm Ointment TOPICAL BID [facility] Thiamine HCl 100 mg 01/17/25 09:00 01/17/25 08:51 Thiamine Hcl 100 Mg Tablet PO 100 mg QAM [facility] Administration Radiology Results: ITS Impressions Venous Doppler Study 01/16/25 11:37 IMPRESSION: 1: No lower extremity deep venous thrombosis. Chest X-Ray 01/16/25 12:37 Impression: 1: Mild interstitial edema. 2: Small right pleural effusion. Knee X-Ray 01/16/25 12:39 Impression: 1: Medial tibial plateau fracture without significant depression. Recommend correlation with CT or MRI. Abdomen/Pelvis CT 01/16/25 12:46 IMPRESSION: Prominence of the common bile duct with a 4 mm stone in the distal common bile duct. Multiple calcifications have been identified within the ivan hepatis on prior studies, without definitive ductal obstruction, present on the current examination secondary to positioning and technique. Remaining findings within the lower chest, abdomen and pelvis are chronic and unchanged from prior study, as detailed above. Knee CT 01/16/25 13:11 IMPRESSION: 1. Curvilinear subarticular sclerosis underlying the significant portion of the medial tibial plateau without evident acute appearing fracture line or associated marrow edema which could represent either chronic osteochondral lesion/bone infarct or old fracture. Could consider further evaluation with MRI if there is high suspicion for acute fracture. Labs Labs: Laboratory Results - last 24 hr 01/16/25 01/16/25 01/16/25 11:07 18:46 20:29 WBC RBC Hgb Hct MCV MCH MCHC RDW Plt Count MPV Immature Gran % (Auto) Neut % (Auto) Lymph % (Auto) [place] % (Auto) Eos % (Auto) Baso % (Auto) Lymph # (Auto) [place] # (Auto) Eos # (Auto) Baso # (Auto) Abs Immat Gran (auto) Absolute Neuts (auto) Absolute Nucleated RBC Nucleated RBC % PT 16.3 H INR 1.3 APTT 38.6 H Sodium Potassium Chloride Carbon Dioxide Anion Gap BUN Creatinine Estim Creat Clear Calc Estimated GFR Glucose POC Capillary Glucose 163 H 176 H Calcium Total Bilirubin AST ALT Alkaline Phosphatase Total Protein Albumin 01/17/25 01/17/25 01/17/25 05:20 07:31 07:35 WBC 7.6 RBC 2.40 L Hgb 7.6 L Hct 24.3 L MCV 101.3 H MCH 31.7 MCHC 31.3 L RDW 14.9 H Plt Count 199 MPV 10.2 Immature Gran % (Auto) 0.5 Neut % (Auto) 74.4 H Lymph % (Auto) 10.2 L [place] % (Auto) 8.7 H Eos % (Auto) 5.8 H Baso % (Auto) 0.4 Lymph # (Auto) 0.77 L [place] # (Auto) 0.7 H Eos # (Auto) 0.4 H Baso # (Auto) 0.0 Abs Immat Gran (auto) 0.04 H Absolute Neuts (auto) 5.6 Absolute Nucleated RBC 0.000 Nucleated RBC % 0.0 PT INR APTT Sodium 133 L Potassium 4.4 Chloride 100 Carbon Dioxide 24 Anion Gap 9 BUN 30 H Creatinine 1.90 H Estim Creat Clear Calc 28 Estimated GFR 26 L Glucose 68 POC Capillary Glucose 45 L* 41 L* Calcium 8.5 Total Bilirubin 1.0 AST 20 ALT 16 Alkaline Phosphatase 227 H Total Protein 6.0 L Albumin 3.5 01/17/25 01/17/25 01/17/25 08:01 08:29 09:14 WBC RBC Hgb Hct MCV MCH MCHC RDW Plt Count MPV Immature Gran % (Auto) Neut % (Auto) Lymph % (Auto) [place] % (Auto) Eos % (Auto) Baso % (Auto) Lymph # (Auto) [place] # (Auto) Eos # (Auto) Baso # (Auto) Abs Immat Gran (auto) Absolute Neuts (auto) Absolute Nucleated RBC Nucleated RBC % PT INR APTT Sodium Potassium Chloride Carbon Dioxide Anion Gap BUN Creatinine Estim Creat Clear Calc Estimated GFR Glucose POC Capillary Glucose 77 93 121 H Calcium Total Bilirubin AST ALT Alkaline Phosphatase Total Protein Albumin 01/17/25 11:39 WBC RBC Hgb Hct MCV MCH MCHC RDW Plt Count MPV Immature Gran % (Auto) Neut % (Auto) Lymph % (Auto) [place] % (Auto) Eos % (Auto) Baso % (Auto) Lymph # (Auto) [place] # (Auto) Eos # (Auto) Baso # (Auto) Abs Immat Gran (auto) Absolute Neuts (auto) Absolute Nucleated RBC Nucleated RBC % PT INR APTT Sodium Potassium Chloride Carbon Dioxide Anion Gap BUN Creatinine Estim Creat Clear Calc Estimated GFR Glucose POC Capillary Glucose 120 H Calcium Total Bilirubin AST ALT Alkaline Phosphatase Total Protein Albumin
[2025-01-17 16:38] LABS: Glucose Point of Care 136 mg/dl (65-105)
[2025-01-17] MEDS: MIDODRINE HCL 2.5 MG TABLET 5 MG PO (18:15)
[2025-01-17 18:33] LABS: Iron 24 ug/dL (37-170)
[2025-01-17 18:44] LABS: Percent Iron Saturation 16 % (20-50)
[2025-01-17 19:10] LABS: Hemoglobin A1C 5.5 % (<5.7)
[2025-01-17 20:19] LABS: Glucose Point of Care 207 mg/dl (65-105)
[2025-01-17] MEDS: INSULIN GLARGINE (*BKC) 100 UNITS/ML 15 UNITS SUB-Q (20:42)
[2025-01-17] MEDS: FUROSEMIDE INJ 40 MG/4 ML VIAL IV PUSH (20:49)
[2025-01-18] VITALS (10 sets, daily range): BP systolic 90–110; BP diastolic 42–60; PULSE 71–88; RESP 16–22; TEMP 35.8–36.9; O2SAT 98–100
[2025-01-18] MEDS: INSULIN ASPART (*BKC) 100 UNITS/ML SUB-Q ×2 (08:00→17:04)
[2025-01-18 08:12] LABS: Glucose Point of Care 121 mg/dl (65-105)
[2025-01-18] MEDS: EUCERIN CREAM 120 GM JAR 1 APPLIC TOPICAL (08:30)
[2025-01-18] MEDS: FUROSEMIDE 40 MG TABLET PO (08:57)
[2025-01-18] MEDS: MIDODRINE HCL 2.5 MG TABLET 5 MG PO ×3 (08:57→16:59)
[2025-01-18] MEDS: FERROUS SULFATE 325 MG TABLET DR BY MOUTH (08:57)
[2025-01-18] MEDS: MIDODRINE HCL 10 MG TABLET PO ×3 (08:57→16:59)
[2025-01-18] MEDS: MAGNESIUM OXIDE 400 MG TABLET 200 MG PO (08:58)
[2025-01-18] MEDS: EMPAGLIFLOZIN 10 MG TABLET PO (08:58)
[2025-01-18] MEDS: ATORVASTATIN 10 MG TABLET PO (08:58)
[2025-01-18] MEDS: FOLIC ACID 0.4 MG TABLET 0.8 MG PO (08:58)
[2025-01-18] MEDS: POTASSIUM CHLORIDE 10 MEQ ER TABLET PO (08:58)
[2025-01-18] MEDS: ASPIRIN 81 MG ENTERIC TABLET PO (08:58)
[2025-01-18] MEDS: THERAPEUTIC MULTIVITAMINS/MINERALS TAB (*BKC) 1 TABLET PO (08:58)
[2025-01-18] MEDS: PYRIDOXINE HCL 50 MG TABLET 100 MG PO (08:58)
[2025-01-18] MEDS: ASCORBIC ACID 500 MG TABLET PO (08:58)
[2025-01-18] MEDS: SPIRONOLACTONE 25 MG TABLET PO (08:59)
[2025-01-18] MEDS: PANTOPRAZOLE 40 MG TABLET PO ×2 (08:59→16:59)
[2025-01-18] MEDS: THIAMINE HCL 100 MG TABLET PO (08:59)
[2025-01-18] MEDS: CYANOCOBALAMIN 1,000 MCG TABLET 3000 MCG PO (08:59)
[2025-01-18] MEDS: ENOXAPARIN 40 MG/0.4 ML SYRINGE SUB-Q (09:02)
[2025-01-18] MEDS: ALBUTEROL SULFATE NEB 2.5 MG/3 ML INH INHALATION (10:57)
--- NOTE | 2025-01-18 11:01 | P.PNIM_ITS ---
Progress Note: A&P Assessment and Plan (1) Acute on chronic diastolic (congestive) heart failure: Code(s): I50.33 - Acute on chronic diastolic (congestive) heart failure Status: Acute Assessment and Plan: * BNP 1740 * CXR shown mild interstitial edema and a small right pleural effusion * Last echo from 10/31/24 shown normal LV systolic function with an estimated EF of 60-65%, grade 2 diastolic dysfunction * Patient has history of cirrhosis and is now chronically hypotensive on midodrine * Continue diuresis as tolerated considering blood pressures are low * Continue Lasix and spironolactone 4/ * Increase spironolactone to 50 mg daily (2) Gallstones: Code(s): K80.20 - Calculus of gallbladder without cholecystitis without obstruction Status: Acute Assessment and Plan: * CT of the abdomen and pelvis showed prominence of common bile duct with a 4 mm stone in the distal common bile duct * GI following and recommends surgical consult * General surgery recommends transfer to tertiary care facility where she can be managed by a team of liver specialists and hepatobiliary surgeons who treat patients with this degree of cirrhosis. * Meld score 20 due to her alcohol liver cirrhosis 4 * US guided paracentesis ordered (3) Fall from ground level: Code(s): W18.30XA - Fall on same level, unspecified, initial encounter Status: Acute Assessment and Plan: * Trauma workup negative for acute fracture * Some imaging redemonstrated a right medial tibial plateau fracture that dated back to October of this year * PT and OT ordered * Patient recently had a long rehab stay and was discharged about 2 weeks ago. She was in a knee immobilizer up until about 2 weeks ago. She was seen by Orthopedic surgery at [facility]. * Continue pain control * Continue fall precautions 01/18 * No change to current treatment plan (4) Pressure ulcer, heel, right, unstageable: Code(s): L89.610 - Pressure ulcer of right heel, unstageable Status: Acute Assessment and Plan: * Wound nurse consulted * Continued dressing changes per Wound nursing orders 01/18 * No change to current treatment plan (5) Pressure ulcer of sacral region: Qualifiers: Pressure injury stage: unspecified pressure injury stage Qualified Code(s): L89.159 - Pressure ulcer of sacral region, unspecified stage Code(s): L89.159 - Pressure ulcer of sacral region, unspecified stage Status: Acute Assessment and Plan: * Wound nurse consulted * Continue dressing changes per Wound nurse orders 01/18 * No change to current treatment plan (6) Insulin dependent type 2 diabetes mellitus: Code(s): E11.9 - Type 2 diabetes mellitus without complications; Z79.4 - 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 * Received albumin today * Continue to monitor blood pressures 01/18 * Blood pressures ranging 96/42-110/55 * Continue Midodrine (8) Alcoholic cirrhosis of liver: Qualifiers: Ascites presence: without ascites Qualified Code(s): K70.30 - Alcoholic cirrhosis of liver without ascites Code(s): K70.30 - Alcoholic cirrhosis of liver without ascites Status: Chronic Assessment and Plan: * Of note (9) Chronic kidney disease, stage 3: Qualifiers: Chronic kidney disease stage 3 subtype: stage 3b (GFR 30-44) Qualified Code(s): N18.32 - Chronic kidney disease, stage 3b Code(s): N18.30 - Chronic kidney disease, stage 3 unspecified Status: Chronic Assessment and Plan: * Currently at her baseline function * Initial creatinine 1.45, EGFR 36 4/ * Creatinine 2.33 today * Continue to monitor * Spironolactone increased to 50 mg daily (10) Chronic hyponatremia: Code(s): E87.1 - Hypo-osmolality and hyponatremia Status: Chronic Assessment and Plan: * Sodium is 133 and at her baseline * Continue to monitor (11) Chronic anemia: Code(s): D64.9 - Anemia, unspecified Status: Chronic Assessment and Plan: Iron deficiency anemia Likely secondary to her cirrhosis * Hemoglobin 7.6 * Transfuse if less than 7 * Will start ferrous sulfate * Will check iron level 4/5 * Hgb 8.1 * Iron level 24 * Will give IV dose of Iron now * continue ferrous sulfate tomorrow Time Spent With Patient Time with patient: Greater than 35 minutes Subjective Date/time seen: 01/18/25 11:01 Interval history: Interval summary: This is a 69-year-old female with a significant past medical history of cirrhosis, alcohol abuse, diastolic dysfunction, diabetes, hyponatremia, anemia, chronic venous insufficiency with lipodermatosclerosis who presented to the hospital for evaluation after a ground level fall And hypotension. Workup in the hospital included venous Doppler which was negative for DVT. Chest x-ray showed mild interstitial edema, small right pleural effusion. Left knee x-ray showed medial tibial plateau fracture without significant depression. Abdomen/pelvis CT shown prominence of the common bile duct with a 4 mm stone in the distal common bile duct, multiple calcifications identified in the ivan hepatis without definitive ductal obstruction. left knee CT shown curvilinear subcortical sclerosis underlying the significant portion of the medial tibial plateau without evident acute appearing fracture line or associated marrow edema which could represent either chronic osteochondral lesions/bone infarct or old fracture. Initial labs showed a normal white blood cell count of 7.2, hemoglobin 8.1, ESR 79, sodium 131, creatinine 1.45, EGFR 36, blood sugar ranging 102-163, lactic acid was normal at 1.3, alkaline phosphate 339, CRP 5.2, proBNP 8740. UA was obtained which showed 1+ glucose otherwise unremarkable. EKG showed sinus rhythm with right axis deviation with a rate of 74, QTC 470. Patient was given midodrine and albumin while in the ED as well as Lasix. PT and OT were ordered for evaluation and treatment. Subjective: She denies any complaints today. Labs reviewed. Review of Systems Review of Systems: All systems reviewed & are unremarkable except as noted in HPI and below Exam Narrative: General: In no acute distress, well nourished Cardiac: Normal S1 and S2. No murmur, gallops or friction rubs, peripheral pulses intact. Respiratory: Lungs clear to auscultation, no adventitious lung sounds, currently on room air Gastrointestinal: soft, non-distended, non-tender, normoactive bowel sounds. : voiding without difficulty. Extremities: moves all extremities, decreased ROM of LLE/knee, mild edema bilateral lower extremities Skin: bilateral jackson erythema Neuro: Alert and oriented x4 Objective Data Vital Signs Vital Signs: Vital Signs - 24 hr 01/17/25 11:57 01/17/25 12:00 01/17/25 16:00 Temperature 97.0 F L Pulse Rate 82 83 80 Respiratory Rate 16 Blood Pressure 95/55 L Pulse Oximetry 99 Oxygen Delivery Fraction of Inspired Oxygen 01/17/25 16:00 01/17/25 20:00 01/17/25 20:00 Temperature 97.6 F 97.2 F L Pulse Rate 77 80 Respiratory Rate 18 18 Blood Pressure 101/49 L 99/55 L Pulse Oximetry 98 98 Oxygen Delivery Room Air Fraction of Inspired Oxygen 01/17/25 20:00 01/18/25 00:00 01/18/25 04:00 Temperature Pulse Rate 82 73 76 Respiratory Rate Blood Pressure Pulse Oximetry Oxygen Delivery Fraction of Inspired Oxygen 01/18/25 05:35 01/18/25 08:00 01/18/25 08:00 Temperature 98.4 F 97.3 F L Pulse Rate 79 83 Respiratory Rate 18 17 Blood Pressure 103/48 L 96/42 L Pulse Oximetry 98 100 Oxygen Delivery Room Air Fraction of Inspired Oxygen 01/18/25 10:57 01/18/25 10:57 Temperature Pulse Rate 80 Respiratory Rate 22 H Blood Pressure Pulse Oximetry 100 Oxygen Delivery Room Air Fraction of Inspired Oxygen 21 Intake/Output Intake/Output: Intake & Output 01/15/25 01/16/25 01/17/25 01/18/25 23:59 23:59 23:59 23:59 Intake Total 560 1310 536 Output Total 500 600 150 Balance 60 710 386 Meds/Results Medications: Active Medications Generic Name Dose Route Start Last Admin Trade Name Freq PRN Reason Stop Dose Admin Acetaminophen 650 mg 01/16/25 15:05 Acetaminophen 325 Mg Tablet PO Q4H PRN Mild Pain (1-3) or Fever Hydrocodone Bitart/Acetaminophen 1 tab 01/16/25 15:05 Hydrocodone/Acetaminophen (*Crx) 5-325 Mg Tablet PO Q4H PRN Pain Rated 4-6 Albuterol 2.5 mg 01/16/25 22:54 01/18/25 10:57 Albuterol Sulfate Neb 2.5 Mg/3 Ml Inh INHALATION 2.5 mg Q8H PRN Administration shortness of breath or wheezing Alendronate Sodium 70 mg 01/21/25 07:00 Alendronate Sodium 70 Mg Tablet PO Tu@0700 PENDING SALE TO [facility] Ascorbic Acid 500 mg 01/17/25 09:00 01/18/25 08:58 Ascorbic Acid 500 Mg Tablet PO 500 mg DAILY NEIL Administration Aspirin 81 mg 01/17/25 09:00 01/18/25 08:58 Aspirin 81 Mg Enteric Tablet PO 81 mg DAILY NEIL Administration Atorvastatin Calcium 10 mg 01/17/25 09:00 01/18/25 08:58 Atorvastatin 10 Mg Tablet PO 10 mg QAM PENDING SALE TO [facility] Administration Calcitriol 0.25 mcg 01/17/25 09:00 01/17/25 11:37 Calcitriol 0.25 Mcg Capsule PO 0.25 mcg SuMoWeFr@0900 PENDING SALE TO [facility] Administration Carvedilol 6.25 mg 01/16/25 22:55 01/17/25 10:11 Carvedilol 6.25 Mg Tablet PO Not Given Q12HR PENDING SALE TO [facility] Cyanocobalamin 3,000 mcg 01/17/25 09:00 01/18/25 08:59 Cyanocobalamin 1,000 Mcg Tablet PO 3,000 mcg QAM PENDING SALE TO [facility] Administration Dextrose 12.5 gm 01/16/25 15:05 Dextrose 50% 25 Gm/50 Ml Syringe IV PUSH PRN PRN Hypoglycemia Protocol Empagliflozin 10 mg 01/17/25 09:00 01/18/25 08:58 Empagliflozin 10 Mg Tablet PO 10 mg DAILY PENDING SALE TO [facility] Administration Enoxaparin Sodium 40 mg 01/17/25 09:00 01/18/25 09:02 Enoxaparin 40 Mg/0.4 Ml Syringe SUB-Q 40 mg DAILY PENDING SALE TO [facility] Administration Ferrous Sulfate 325 mg 01/17/25 09:00 01/18/25 08:57 Ferrous Sulfate [address] BY MOUTH 325 mg DAILY PENDING SALE TO [facility] Administration Ferrous Sulfate 325 mg 01/18/25 09:00 01/18/25 10:18 Ferrous Sulfate [address] PO Not Given BID PENDING SALE TO [facility] Fluticasone Propionate 2 spray 01/16/25 22:54 Fluticasone Propionate 0.05% Na Spr 16 Gm Btl (*Bkc) NASAL DAILY PRN allergies Folic Acid 0.8 mg 01/17/25 09:00 01/18/25 08:58 Folic Acid 0.4 Mg Tablet PO 0.8 mg QAM PENDING SALE TO [facility] Administration Furosemide 40 mg 01/17/25 09:00 01/18/25 08:57 Furosemide 40 Mg Tablet PO 40 mg DAILY NEIL Administration Glucagon 1 mg 01/16/25 15:05 Glucagon For Inj 1 Mg Vial IM PRN PRN Hypoglycemia Protocol Glucose 15 gm 01/16/25 15:05 01/17/25 08:05 Glucose Oral Gel 15 Gm Of Glucse In 37.5 Gm Tube PO 15 gm PRN PRN Administration Hypoglycemia Protocol Dextrose 1,000 mls @ 100 mls/hr 01/16/25 15:05 Dextrose 5% 1,000 Ml IVPB PRN PRN Hypoglycemia Protocol Insulin Aspart 4 - 8 units 01/16/25 17:00 01/18/25 08:55 Insulin Aspart (*Bkc) 100 Units/Ml SUB-Q Not Given TIDWM NEIL Protocol Insulin Aspart 3 units 01/17/25 08:00 01/18/25 09:01 Insulin Aspart (*Bkc) 100 Units/Ml SUB-Q 3 units TIDWM NEIL Administration Insulin Glargine 15 units 01/16/25 22:55 01/17/25 20:42 Insulin Glargine (*Bkc) 100 Units/Ml SUB-Q 15 units HS NEIL Administration Loperamide HCl 2 mg 01/16/25 22:54 Loperamide Hcl 2 Mg Capsule PO QID PRN loose stool Magnesium Oxide 200 mg 01/17/25 09:00 01/18/25 08:58 Magnesium Oxide 400 Mg Tablet PO 200 mg QAM NEIL Administration Midodrine 5 mg 01/17/25 18:00 01/18/25 08:57 Midodrine Hcl 2.5 Mg Tablet PO 5 mg TID NEIL Administration Midodrine 10 mg 01/17/25 18:00 01/18/25 08:57 Midodrine Hcl 10 Mg Tablet PO 10 mg TID NEIL Administration Miscellaneous Information 1 each 01/17/25 00:01 01/16/25 23:47 Tacromilus 0.03% Ointment Is Nonformulary; Can Pt Use From Home Or Pharmacy Carries 0.1% O XX 02/16/25 00:00 Not Given CLARIFY PENDING SALE TO [facility] Multi-Ingred Cream/Lotion/Oil/Oint 1 applic 01/17/25 09:00 01/17/25 11:41 Eucerin Cream 120 Gm Jar TOPICAL 1 applic DAILY NEIL Administration Multivitamins/Calcium 1 tablet 01/17/25 09:00 01/18/25 08:58 Therapeutic Multivitamins/Minerals Tab (*Bkc) PO 1 tablet DAILY NEIL Administration Ondansetron HCl 4 mg 01/16/25 15:05 Ondansetron Inj 4 Mg/2 Ml Vial IV PUSH Q4H PRN Nausea Pantoprazole Sodium 40 mg 01/17/25 09:00 01/18/25 08:59 Pantoprazole 40 Mg Tablet PO 40 mg BID NEIL Administration Potassium Chloride 10 meq 01/17/25 08:00 01/18/25 08:58 Potassium Chloride 10 Meq Er Tablet PO 10 meq DAILY@0800 NEIL Administration Pyridoxine HCl 100 mg 01/17/25 09:00 01/18/25 08:58 Pyridoxine Hcl 50 Mg Tablet PO 100 mg QAM PENDING SALE TO [facility] Administration Senna 8.6 mg 01/16/25 22:54 Sennosides 8.6 Mg Tablet PO DAILY PRN constipation Spironolactone 25 mg 01/17/25 09:00 01/18/25 08:59 Spironolactone 25 Mg Tablet PO 25 mg QAM NEIL Administration Tacrolimus 1 applic 01/17/25 09:00 Tacrolimus 0.03% 30 Gm Ointment TOPICAL BID PENDING SALE TO [facility] Thiamine HCl 100 mg 01/17/25 09:00 01/18/25 08:59 Thiamine Hcl 100 Mg Tablet PO 100 mg QAM NEIL Administration Radiology Results: ITS Impressions Venous Doppler Study 01/16/25 11:37 IMPRESSION: 1: No lower extremity deep venous thrombosis. Chest X-Ray 01/16/25 12:37 Impression: 1: Mild interstitial edema. 2: Small right pleural effusion. Knee X-Ray 01/16/25 12:39 Impression: 1: Medial tibial plateau fracture without significant depression. Recommend correlation with CT or MRI. Abdomen/Pelvis CT 01/16/25 12:46 IMPRESSION: Prominence of the common bile duct with a 4 mm stone in the distal common bile duct. Multiple calcifications have been identified within the ivan hepatis on prior studies, without definitive ductal obstruction, present on the current examination secondary to positioning and technique. Remaining findings within the lower chest, abdomen and pelvis are chronic and unchanged from prior study, as detailed above. Knee CT 01/16/25 13:11 IMPRESSION: 1. Curvilinear subarticular sclerosis underlying the significant portion of the medial tibial plateau without evident acute appearing fracture line or associated marrow edema which could represent either chronic osteochondral lesion/bone infarct or old fracture. Could consider further evaluation with MRI if there is high suspicion for acute fracture. Labs Labs: Laboratory Results - last 24 hr 01/17/25 01/17/25 01/17/25 05:16 11:39 16:29 POC Capillary Glucose 120 H 136 H Hemoglobin A1c Iron 24 L TIBC 148 L % Saturation 16 L 01/17/25 01/17/25 01/18/25 17:50 19:58 08:06 POC Capillary Glucose 207 H 121 H Hemoglobin A1c 5.5 Iron TIBC % Saturation Quality VTE Prophylaxis VTE prophylaxis: pharmacologic ordered
[2025-01-18 12:03] LABS: Glucose Point of Care 95 mg/dl (65-105)
[2025-01-18 12:18] LABS: Basophils Percent Auto 0.5 % (0.2-1.2); Eosinophils Absolute Auto 0.6 K/mm3 (0-0.3); Eosinophils Percent Auto 7.1 % (0-4.4); Hematocrit 25.8 % (37.0-47.0); Hemoglobin 8.1 g/dL (12.0-15.0); Immature Granulocyte Absolute 0.07 K/mm3 (0.00-0.031); Immature Granulocyte Percent A 0.8 % (0-0.5); Lymphocytes Absolute Auto 1.07 K/mm3 (0.9-3.2); Mean Corpuscular HGB Conc 31.4 g/dl (32-36); Mean Corpuscular Hemoglobin 31.5 pg (26-34); Mean Corpuscular Volume 100.4 fl (80-100); Mean Platelet Volume 10.3 fl (7.4-10.4); Monocytes Absolute Auto 0.9 K/mm3 (0.1-0.6); Monocytes Percent Auto 9.9 % (2.6-8.5); Neutrophils Absolute Auto 6.2 K/mm3 (1.3-6.7); Neutrophils Percent Auto 69.7 % (45.5-73.1); Platelet Count Result 225 k/mm3 (150-375); Red Blood Count 2.57 M/mm3 (4.2-5.4); Red Cell Distribution Width 15.7 % (11.5-14.5); White Blood Count 8.9 K/mm3 (4.5-10.0)
[2025-01-18 12:33] LABS: Alanine Aminotransferase 15 U/L (6-35); Albumin Level 3.7 g/dL (3.5-5.1); Alkaline Phosphatase 243 U/L (38-126); Anion Gap 14 mmol/L (4-12); Aspartate Amino Transferase 21 U/L (14-36); Bilirubin,Total 0.9 mg/dL (0.2-1.3); Blood Urea Nitrogen 33 mg/dL (7-17); Calcium 8.7 mg/dL (8.4-10.2); Carbon Dioxide 20 mmol/L (22-30); Chloride 98 mmol/L (98-107); Estimated CRCL calculation 23 ml/min; Estimated Glomerular Filt Rate 21; Glucose 84 mg/dL (65-110); Potassium 4.4 mmol/L (3.4-5.0); Sodium 132 mmol/L (137-145)
[2025-01-18] MEDS: HYDROcodone/acetaminophen (*CRX) 5-325 MG TABLET 1 TAB PO (15:42)
[2025-01-18 16:32] LABS: Glucose Point of Care 151 mg/dl (65-105)
[2025-01-18] MEDS: IRON SUCROSE COMPLEX 400 MG in SODIUM CHLORIDE 0.9% IV 250 ML 108 MG IVPB (16:59)
[2025-01-18] MEDS: INSULIN GLARGINE (*BKC) 100 UNITS/ML 15 UNITS SUB-Q (20:38)
[2025-01-18 21:32] LABS: Glucose Point of Care 156 mg/dl (65-105)
[2025-01-19] VITALS (9 sets, daily range): BP systolic 111–127; BP diastolic 48–61; PULSE 69–85; RESP 18–24; TEMP 35.7–36.8; O2SAT 97–100
[2025-01-19 05:29] LABS: Glucose Point of Care 58 mg/dl (65-105)
[2025-01-19 05:29] LABS: Glucose Point of Care 118 mg/dl (65-105)
[2025-01-19 05:52] LABS: Basophils Absolute Auto 0.1 K/mm3 (0.0-0.1); Basophils Percent Auto 0.6 % (0.2-1.2); Eosinophils Absolute Auto 0.6 K/mm3 (0-0.3); Eosinophils Percent Auto 6.3 % (0-4.4); Hemoglobin 8.2 g/dL (12.0-15.0); Immature Granulocyte Absolute 0.07 K/mm3 (0.00-0.031); Immature Granulocyte Percent A 0.8 % (0-0.5); Lymphocytes Absolute Auto 0.66 K/mm3 (0.9-3.2); Lymphocytes Percent Auto 7.3 % (18.3-44.2); Mean Corpuscular HGB Conc 31.5 g/dl (32-36); Mean Corpuscular Hemoglobin 31.3 pg (26-34); Mean Corpuscular Volume 99.2 fl (80-100); Mean Platelet Volume 10.3 fl (7.4-10.4); Monocytes Absolute Auto 0.9 K/mm3 (0.1-0.6); Monocytes Percent Auto 10.4 % (2.6-8.5); Neutrophils Absolute Auto 6.7 K/mm3 (1.3-6.7); Neutrophils Percent Auto 74.6 % (45.5-73.1); Platelet Count Result 235 k/mm3 (150-375); Red Blood Count 2.62 M/mm3 (4.2-5.4); Red Cell Distribution Width 15.9 % (11.5-14.5)
[2025-01-19 06:11] LABS: Alanine Aminotransferase 16 U/L (6-35); Albumin Level 3.5 g/dL (3.5-5.1); Alkaline Phosphatase 281 U/L (38-126); Anion Gap 13 mmol/L (4-12); Aspartate Amino Transferase 22 U/L (14-36); Blood Urea Nitrogen 34 mg/dL (7-17); Calcium 8.5 mg/dL (8.4-10.2); Carbon Dioxide 19 mmol/L (22-30); Chloride 100 mmol/L (98-107); Estimated CRCL calculation 21 ml/min; Estimated Glomerular Filt Rate 18; Glucose 103 mg/dL (65-110); Potassium 4.7 mmol/L (3.4-5.0); Sodium 132 mmol/L (137-145)
[2025-01-19 08:26] LABS: Glucose Point of Care 79 mg/dl (65-105)
[2025-01-19] MEDS: MIDODRINE HCL 2.5 MG TABLET 5 MG PO ×3 (08:56→17:36)
[2025-01-19] MEDS: ASCORBIC ACID 500 MG TABLET PO (08:56)
[2025-01-19] MEDS: MIDODRINE HCL 10 MG TABLET PO ×3 (08:56→17:36)
[2025-01-19] MEDS: PYRIDOXINE HCL 50 MG TABLET 100 MG PO (08:56)
[2025-01-19] MEDS: THIAMINE HCL 100 MG TABLET PO (08:56)
[2025-01-19] MEDS: CYANOCOBALAMIN 1,000 MCG TABLET 3000 MCG PO (08:56)
[2025-01-19] MEDS: EMPAGLIFLOZIN 10 MG TABLET PO (08:57)
[2025-01-19] MEDS: calcitrioL 0.25 MCG CAPSULE PO (08:57)
[2025-01-19] MEDS: ATORVASTATIN 10 MG TABLET PO (08:57)
[2025-01-19] MEDS: ASPIRIN 81 MG ENTERIC TABLET PO (08:57)
[2025-01-19] MEDS: MAGNESIUM OXIDE 400 MG TABLET 200 MG PO (08:57)
[2025-01-19] MEDS: THERAPEUTIC MULTIVITAMINS/MINERALS TAB (*BKC) 1 TABLET PO (08:57)
[2025-01-19] MEDS: FOLIC ACID 0.4 MG TABLET 0.8 MG PO (08:57)
[2025-01-19] MEDS: PANTOPRAZOLE 40 MG TABLET PO ×2 (08:57→17:37)
[2025-01-19] MEDS: FERROUS SULFATE 325 MG TABLET DR BY MOUTH (08:58)
[2025-01-19] MEDS: FUROSEMIDE 40 MG TABLET PO (08:58)
[2025-01-19] MEDS: SPIRONOLACTONE 25 MG TABLET 50 MG PO (08:58)
[2025-01-19] MEDS: POTASSIUM CHLORIDE 10 MEQ ER TABLET PO (08:58)
[2025-01-19] MEDS: ENOXAPARIN 30 MG/0.3 ML SYRINGE SUB-Q (09:01)
[2025-01-19] MEDS: EUCERIN CREAM 120 GM JAR 1 APPLIC TOPICAL (09:02)
[2025-01-19 11:45] LABS: Glucose Point of Care 159 mg/dl (65-105)
--- NOTE | 2025-01-19 12:14 | PM.IMPN ---
Progress Note: A&P Assessment and Plan (1) Acute on chronic diastolic (congestive) heart failure: Code(s): I50.33 - Acute on chronic diastolic (congestive) heart failure Status: Acute Assessment and Plan: BNP 1740 CXR shown mild interstitial edema and a small right pleural effusion Last echo from 10/31/24 shown normal LV systolic function with an estimated EF of 60-65%, grade 2 diastolic dysfunction Patient has history of cirrhosis and is now chronically hypotensive on midodrine Continue diuresis as tolerated considering blood pressures are low Continue Lasix and spironolactone / Increase spironolactone to 50 mg daily 01/19 Will hold Lasix and Spironolactone considering worsening renal function (2) Gallstones: Code(s): K80.20 - Calculus of gallbladder without cholecystitis without obstruction Status: Acute Assessment and Plan: CT of the abdomen and pelvis showed prominence of common bile duct with a 4 mm stone in the distal common bile duct GI following and recommends surgical consult General surgery recommends transfer to tertiary care facility where she can be managed by a team of liver specialists and hepatobiliary surgeons who treat patients with this degree of cirrhosis. Meld score 20 due to her alcohol liver cirrhosis / US guided paracentesis ordered 01/19 Will hold off on US guided paracentesis and get repeat CT of the chest/abdomen/pelvis (3) Fall from ground level: Code(s): W18.30XA - Fall on same level, unspecified, initial encounter Status: Acute Assessment and Plan: Trauma workup negative for acute fracture Some imaging redemonstrated a right medial tibial plateau fracture that dated back to October of this year PT and OT ordered Patient recently had a long rehab stay and was discharged about 2 weeks ago. She was in a knee immobilizer up until about 2 weeks ago. She was seen by Orthopedic surgery at [facility] and [facility]. Continue pain control Continue fall precautions / No change to current treatment plan (4) Pressure ulcer, heel, right, unstageable: Code(s): L89.610 - Pressure ulcer of right heel, unstageable Status: Acute Assessment and Plan: Wound nurse consulted Continued dressing changes per Wound nursing orders 01/18 No change to current treatment plan (5) Pressure ulcer of sacral region: Qualifiers: Pressure injury stage: unspecified pressure injury stage Qualified Code(s): L89.159 - Pressure ulcer of sacral region, unspecified stage Code(s): L89.159 - Pressure ulcer of sacral region, unspecified stage Status: Acute Assessment and Plan: Wound nurse consulted Continue dressing changes per Wound nurse orders 01/18 No change to current treatment plan (6) Insulin dependent type 2 diabetes mellitus: Code(s): E11.9 - Type 2 diabetes mellitus without complications; Z79.4 - detention (current) use of insulin Status: Chronic Assessment and Plan: Blood sugars ranging 120-136 Hgb A1C 5.1 on 08/26/2025 Accu checks AC/HS High-dose SSI ordered Continue Jardiance, Lantus, mealtime replacement insulin hypoglycemic protocol in place Diabetic diet ordered (7) Hypotension: Qualifiers: Hypotension type: unspecified hypotension type Qualified Code(s): I95.9 - Hypotension, unspecified Code(s): I95.9 - Hypotension, unspecified Status: Chronic Assessment and Plan: Increase midodrine to 15 mg t.i.d. Received albumin today Continue to monitor blood pressures 01/18 Blood pressures ranging 96/42-110/55 Continue Midodrine (8) Alcoholic cirrhosis of liver: Qualifiers: Ascites presence: without ascites Qualified Code(s): K70.30 - Alcoholic cirrhosis of liver without ascites Code(s): K70.30 - Alcoholic cirrhosis of liver without ascites Status: Chronic Assessment and Plan: Of note (9) Chronic kidney disease, stage 3: Qualifiers: Chronic kidney disease stage 3 subtype: stage 3b (GFR 30-44) Qualified Code(s): N18.32 - Chronic kidney disease, stage 3b Code(s): N18.30 - Chronic kidney disease, stage 3 unspecified Status: Chronic Assessment and Plan: Currently at her baseline function Initial creatinine 1.45, EGFR 36 4/5 Creatinine 2.33 today Continue to monitor Spironolactone increased to 50 mg daily /6 Creatinine 2.60 Will hold diuretics today due to worsening kidney function despite diuresis (10) Chronic hyponatremia: Code(s): E87.1 - Hypo-osmolality and hyponatremia Status: Chronic Assessment and Plan: Sodium is 133 and at her baseline Continue to monitor (11) Chronic anemia: Code(s): D64.9 - Anemia, unspecified Status: Chronic Assessment and Plan: Iron deficiency anemia Likely secondary to her cirrhosis Hemoglobin 7.6 Transfuse if less than 7 Will start ferrous sulfate Will check iron level 4/ Hgb 8.1 Iron level 24 Will give IV dose of Iron now continue ferrous sulfate tomorrow 4/6 no change to current treatment plan Time Spent With Patient Time with patient: 25 - 35 minutes Subjective Date/time seen: 01/19/25 12:14 Interval history: Interval summary: This is a 69-year-old female with a significant past medical history of cirrhosis, alcohol abuse, diastolic dysfunction, diabetes, hyponatremia, anemia, chronic venous insufficiency with lipodermatosclerosis who presented to the hospital for evaluation after a ground level fall And hypotension. Workup in the hospital included venous Doppler which was negative for DVT. Chest x-ray showed mild interstitial edema, small right pleural effusion. Left knee x-ray showed medial tibial plateau fracture without significant depression. Abdomen/pelvis CT shown prominence of the common bile duct with a 4 mm stone in the distal common bile duct, multiple calcifications identified in the ivan hepatis without definitive ductal obstruction. left knee CT shown curvilinear subcortical sclerosis underlying the significant portion of the medial tibial plateau without evident acute appearing fracture line or associated marrow edema which could represent either chronic osteochondral lesions/bone infarct or old fracture. Initial labs showed a normal white blood cell count of 7.2, hemoglobin 8.1, ESR 79, sodium 131, creatinine 1.45, EGFR 36, blood sugar ranging 102-163, lactic acid was normal at 1.3, alkaline phosphate 339, CRP 5.2, proBNP 8740. UA was obtained which showed 1+ glucose otherwise unremarkable. EKG showed sinus rhythm with right axis deviation with a rate of 74, QTC 470. Patient was given midodrine and albumin while in the ED as well as Lasix. PT and OT were ordered for evaluation and treatment. Subjective: Patient reports worsening shortness of breath and abdominal distention.She is currently on room air. She does have mild expiratory wheezing and does appear to be labored breathing. Labs reviewed. Review of Systems Review of Systems: All systems reviewed & are unremarkable except as noted in HPI and below Exam Narrative: General: In no acute distress, well nourished Cardiac: Normal S1 and S2. No murmur, gallops or friction rubs, peripheral pulses intact. Respiratory: Lungs mild expiratory wheezing bilaterally, no adventitious lung sounds, currently on room air, tachypnea Gastrointestinal:distended and taunt, non-tender, normoactive bowel sounds. : voiding without difficulty. Extremities: moves all extremities, decreased ROM of LLE/knee, mild edema bilateral lower extremities Skin: bilateral jackson erythema Neuro: Alert and oriented x4 Objective Data Vital Signs Vital Signs: Vital Signs - 24 hr 01/18/25 14:22 01/18/25 16:00 01/18/25 16:00 Temperature 98.3 F Pulse Rate 77 86 Respiratory Rate 16 Blood Pressure 101/51 L Pulse Oximetry 100 Oxygen Delivery Room Air Fraction of Inspired Oxygen 01/18/25 20:00 01/18/25 20:00 01/18/25 21:00 Temperature 96.5 F L Pulse Rate 72 71 72 Respiratory Rate 16 16 Blood Pressure 90/60 L Pulse Oximetry 99 99 Oxygen Delivery Room Air Fraction of Inspired Oxygen 21 01/19/25 00:00 01/19/25 00:00 01/19/25 04:00 Temperature 96.3 F L Pulse Rate 69 70 72 Respiratory Rate 18 Blood Pressure 111/48 L Pulse Oximetry 97 Oxygen Delivery Fraction of Inspired Oxygen 01/19/25 04:30 01/19/25 08:00 01/19/25 08:00 Temperature 96.7 F L Pulse Rate 76 77 Respiratory Rate 20 Blood Pressure 116/59 L Pulse Oximetry 97 Oxygen Delivery Room Air Fraction of Inspired Oxygen 01/19/25 10:15 Temperature 97.7 F Pulse Rate 79 Respiratory Rate 18 Blood Pressure 121/51 L Pulse Oximetry 97 Oxygen Delivery Fraction of Inspired Oxygen Intake/Output Intake/Output: Intake & Output 01/16/25 01/17/25 01/18/25 01/19/25 23:59 23:59 23:59 23:59 Intake Total 560 1310 1010 746 Output Total 500 600 150 150 Balance 60 710 860 596 Meds/Results Medications: Active Medications Generic Name Dose Route Start Last Admin Trade Name Freq PRN Reason Stop Dose Admin Acetaminophen 650 mg 01/16/25 15:05 Acetaminophen 325 Mg Tablet PO Q4H PRN Mild Pain (1-3) or Fever Hydrocodone Bitart/Acetaminophen 1 tab 01/16/25 15:05 01/18/25 15:42 Hydrocodone/Acetaminophen (*Crx) 5-325 Mg Tablet PO 1 tab Q4H PRN Administration Pain Rated 4-6 Albuterol 2.5 mg 01/16/25 22:54 01/18/25 10:57 Albuterol Sulfate Neb 2.5 Mg/3 Ml Inh INHALATION 2.5 mg Q8H PRN Administration shortness of breath or wheezing Alendronate Sodium 70 mg 01/21/25 07:00 Alendronate Sodium 70 Mg Tablet PO Tu@0700 NEIL Ascorbic Acid 500 mg 01/17/25 09:00 01/19/25 08:56 Ascorbic Acid 500 Mg Tablet PO 500 mg DAILY NEIL Administration Aspirin 81 mg 01/17/25 09:00 01/19/25 08:57 Aspirin 81 Mg Enteric Tablet PO 81 mg DAILY NEIL Administration Atorvastatin Calcium 10 mg 01/17/25 09:00 01/19/25 08:57 Atorvastatin 10 Mg Tablet PO 10 mg QAM [facility] Administration Calcitriol 0.25 mcg 01/17/25 09:00 01/19/25 08:57 Calcitriol 0.25 Mcg Capsule PO 0.25 mcg [id number]@0900 NEIL Administration Carvedilol 6.25 mg 01/16/25 22:55 01/17/25 10:11 Carvedilol 6.25 Mg Tablet PO Not Given Q12HR [facility] Cyanocobalamin 3,000 mcg 01/17/25 09:00 01/19/25 08:56 Cyanocobalamin 1,000 Mcg Tablet PO 3,000 mcg QAM [facility] Administration Dextrose 12.5 gm 01/16/25 15:05 Dextrose 50% 25 Gm/50 Ml Syringe IV PUSH PRN PRN Hypoglycemia Protocol Empagliflozin 10 mg 01/17/25 09:00 01/19/25 08:57 Empagliflozin 10 Mg Tablet PO 10 mg DAILY [facility] Administration Enoxaparin Sodium 30 mg 01/19/25 09:00 01/19/25 09:01 Enoxaparin 30 Mg/0.3 Ml Syringe SUB-Q 30 mg DAILY [facility] Administration Ferrous Sulfate 325 mg 01/17/25 09:00 01/19/25 08:58 Ferrous Sulfate [address] BY MOUTH 325 mg DAILY [facility] Administration Ferrous Sulfate 325 mg 01/18/25 09:00 01/18/25 10:18 Ferrous Sulfate [address] PO Not Given BID NEIL Fluticasone Propionate 2 spray 01/16/25 22:54 Fluticasone Propionate 0.05% Na Spr 16 Gm Btl (*Bkc) NASAL DAILY PRN allergies Folic Acid 0.8 mg 01/17/25 09:00 01/19/25 08:57 Folic Acid 0.4 Mg Tablet PO 0.8 mg QAM NEIL Administration Furosemide 40 mg 01/17/25 09:00 01/19/25 08:58 Furosemide 40 Mg Tablet PO 40 mg DAILY NEIL Administration Glucagon 1 mg 01/16/25 15:05 Glucagon For Inj 1 Mg Vial IM PRN PRN Hypoglycemia Protocol Glucose 15 gm 01/16/25 15:05 01/17/25 08:05 Glucose Oral Gel 15 Gm Of Glucse In 37.5 Gm Tube PO 15 gm PRN PRN Administration Hypoglycemia Protocol Dextrose 1,000 mls @ 100 mls/hr 01/16/25 15:05 Dextrose 5% 1,000 Ml IVPB PRN PRN Hypoglycemia Protocol Insulin Aspart 4 - 8 units 01/16/25 17:00 01/19/25 08:54 Insulin Aspart (*Bkc) 100 Units/Ml SUB-Q Not Given TIDWM [facility] Protocol Insulin Aspart 3 units 01/17/25 08:00 01/19/25 08:55 Insulin Aspart (*Bkc) 100 Units/Ml SUB-Q Not Given TIDWM [facility] Insulin Glargine 15 units 01/16/25 22:55 01/18/25 20:38 Insulin Glargine (*Bkc) 100 Units/Ml SUB-Q 15 units HS [facility] Administration Loperamide HCl 2 mg 01/16/25 22:54 Loperamide Hcl 2 Mg Capsule PO QID PRN loose stool Magnesium Oxide 200 mg 01/17/25 09:00 01/19/25 08:57 Magnesium Oxide 400 Mg Tablet PO 200 mg QAM [facility] Administration Midodrine 5 mg 01/17/25 18:00 01/19/25 08:56 Midodrine Hcl 2.5 Mg Tablet PO 5 mg TID [facility] Administration Midodrine 10 mg 01/17/25 18:00 01/19/25 08:56 Midodrine Hcl 10 Mg Tablet PO 10 mg TID [facility] Administration Miscellaneous Information 1 each 01/17/25 00:01 01/16/25 23:47 Tacromilus 0.03% Ointment Is Nonformulary; Can Pt Use From Home Or Pharmacy Carries 0.1% O XX 02/16/25 00:00 Not Given CLARIFY [facility] Multi-Ingred Cream/Lotion/Oil/Oint 1 applic 01/17/25 09:00 01/19/25 09:02 Eucerin Cream 120 Gm Jar TOPICAL 1 applic DAILY NEIL Administration Multivitamins/Calcium 1 tablet 01/17/25 09:00 01/19/25 08:57 Therapeutic Multivitamins/Minerals Tab (*Bkc) PO 1 tablet DAILY NEIL Administration Ondansetron HCl 4 mg 01/16/25 15:05 Ondansetron Inj 4 Mg/2 Ml Vial IV PUSH Q4H PRN Nausea Pantoprazole Sodium 40 mg 01/17/25 09:00 01/19/25 08:57 Pantoprazole 40 Mg Tablet PO 40 mg BID [facility] Administration Potassium Chloride 10 meq 01/17/25 08:00 01/19/25 08:58 Potassium Chloride 10 Meq Er Tablet PO 10 meq DAILY@0800 [facility] Administration Pyridoxine HCl 100 mg 01/17/25 09:00 01/19/25 08:56 Pyridoxine Hcl 50 Mg Tablet PO 100 mg QAM [facility] Administration Senna 8.6 mg 01/16/25 22:54 Sennosides 8.6 Mg Tablet PO DAILY PRN constipation Spironolactone 50 mg 01/19/25 09:00 01/19/25 08:58 Spironolactone 25 Mg Tablet PO 50 mg QAM [facility] Administration Tacrolimus 1 applic 01/17/25 09:00 Tacrolimus 0.03% 30 Gm Ointment TOPICAL BID [facility] Thiamine HCl 100 mg 01/17/25 09:00 01/19/25 08:56 Thiamine Hcl 100 Mg Tablet PO 100 mg QAM [facility] Administration Radiology Results: ITS Impressions Venous Doppler Study 01/16/25 11:37 IMPRESSION: 1: No lower extremity deep venous thrombosis. Chest X-Ray 01/16/25 12:37 Impression: 1: Mild interstitial edema. 2: Small right pleural effusion. Knee X-Ray 01/16/25 12:39 Impression: 1: Medial tibial plateau fracture without significant depression. Recommend correlation with CT or MRI. Abdomen/Pelvis CT 01/16/25 12:46 IMPRESSION: Prominence of the common bile duct with a 4 mm stone in the distal common bile duct. Multiple calcifications have been identified within the ivan hepatis on prior studies, without definitive ductal obstruction, present on the current examination secondary to positioning and technique. Remaining findings within the lower chest, abdomen and pelvis are chronic and unchanged from prior study, as detailed above. Knee CT 01/16/25 13:11 IMPRESSION: 1. Curvilinear subarticular sclerosis underlying the significant portion of the medial tibial plateau without evident acute appearing fracture line or associated marrow edema which could represent either chronic osteochondral lesion/bone infarct or old fracture. Could consider further evaluation with MRI if there is high suspicion for acute fracture. Labs Labs: Laboratory Results - last 24 hr 01/18/25 01/18/25 01/18/25 12:11 16:28 20:35 WBC 8.9 RBC 2.57 L Hgb 8.1 L Hct 25.8 L MCV 100.4 H MCH 31.5 MCHC 31.4 L RDW 15.7 H Plt Count 225 MPV 10.3 Immature Gran % (Auto) 0.8 H Neut % (Auto) 69.7 Lymph % (Auto) 12.0 L [place] % (Auto) 9.9 H Eos % (Auto) 7.1 H Baso % (Auto) 0.5 Lymph # (Auto) 1.07 [place] # (Auto) 0.9 H Eos # (Auto) 0.6 H Baso # (Auto) 0.0 Abs Immat Gran (auto) 0.07 H Absolute Neuts (auto) 6.2 Absolute Nucleated RBC 0.000 Nucleated RBC % 0.0 Sodium 132 L Potassium 4.4 Chloride 98 Carbon Dioxide 20 L Anion Gap 14 H BUN 33 H Creatinine 2.33 H Estim Creat Clear Calc 23 Estimated GFR 21 L Glucose 84 POC Capillary Glucose 151 H 156 H Calcium 8.7 Total Bilirubin 0.9 AST 21 ALT 15 Alkaline Phosphatase 243 H Total Protein 6.0 L Albumin 3.7 01/19/25 01/19/25 01/19/25 04:27 05:25 05:27 WBC 9.0 RBC 2.62 L Hgb 8.2 L Hct 26.0 L MCV 99.2 MCH 31.3 MCHC 31.5 L RDW 15.9 H Plt Count 235 MPV 10.3 Immature Gran % (Auto) 0.8 H Neut % (Auto) 74.6 H Lymph % (Auto) 7.3 L [place] % (Auto) 10.4 H Eos % (Auto) 6.3 H Baso % (Auto) 0.6 Lymph # (Auto) 0.66 L [place] # (Auto) 0.9 H Eos # (Auto) 0.6 H Baso # (Auto) 0.1 Abs Immat Gran (auto) 0.07 H Absolute Neuts (auto) 6.7 Absolute Nucleated RBC 0.000 Nucleated RBC % 0.0 Sodium 132 L Potassium 4.7 Chloride 100 Carbon Dioxide 19 L Anion Gap 13 H BUN 34 H Creatinine 2.60 H Estim Creat Clear Calc 21 Estimated GFR 18 L Glucose 103 POC Capillary Glucose 58 L* 118 H Calcium 8.5 Total Bilirubin 1.0 AST 22 ALT 16 Alkaline Phosphatase 281 H Total Protein 6.0 L Albumin 3.5 01/19/25 01/19/25 08:12 11:31 WBC RBC Hgb Hct MCV MCH MCHC RDW Plt Count MPV Immature Gran % (Auto) Neut % (Auto) Lymph % (Auto) [place] % (Auto) Eos % (Auto) Baso % (Auto) Lymph # (Auto) [place] # (Auto) Eos # (Auto) Baso # (Auto) Abs Immat Gran (auto) Absolute Neuts (auto) Absolute Nucleated RBC Nucleated RBC % Sodium Potassium Chloride Carbon Dioxide Anion Gap BUN Creatinine Estim Creat Clear Calc Estimated GFR Glucose POC Capillary Glucose 79 159 H Calcium Total Bilirubin AST ALT Alkaline Phosphatase Total Protein Albumin Quality VTE Prophylaxis VTE prophylaxis: pharmacologic ordered
[2025-01-19] MEDS: INSULIN ASPART (*BKC) 100 UNITS/ML SUB-Q ×2 (13:12→17:36)
[2025-01-19 16:14] LABS: IFOB Positive Control Positive; Immunochemical Fecal Occult Bl Positive (N)
[2025-01-19 17:15] LABS: Glucose Point of Care 142 mg/dl (65-105)
[2025-01-19] MEDS: SODIUM BICARBONATE TAB 650 MG TABLET PO (17:36)
[2025-01-20] VITALS (10 sets, daily range): BP systolic 114–136; BP diastolic 49–69; PULSE 76–91; RESP 20–24; TEMP 35.6–36.7; O2SAT 96–100
[2025-01-20 00:01] LABS: Glucose Point of Care 162 mg/dl (65-105)
[2025-01-20 06:05] LABS: Basophils Absolute Auto 0.1 K/mm3 (0.0-0.1); Basophils Percent Auto 0.6 % (0.2-1.2); Eosinophils Absolute Auto 0.8 K/mm3 (0-0.3); Eosinophils Percent Auto 9.7 % (0-4.4); Hematocrit 27.4 % (37.0-47.0); Hemoglobin 8.5 g/dL (12.0-15.0); Immature Granulocyte Absolute 0.06 K/mm3 (0.00-0.031); Immature Granulocyte Percent A 0.8 % (0-0.5); Lymphocytes Absolute Auto 1.14 K/mm3 (0.9-3.2); Lymphocytes Percent Auto 14.8 % (18.3-44.2); Mean Corpuscular Hemoglobin 31.4 pg (26-34); Mean Corpuscular Volume 101.1 fl (80-100); Mean Platelet Volume 10.2 fl (7.4-10.4); Monocytes Absolute Auto 0.9 K/mm3 (0.1-0.6); Monocytes Percent Auto 11.9 % (2.6-8.5); Neutrophils Absolute Auto 4.8 K/mm3 (1.3-6.7); Neutrophils Percent Auto 62.2 % (45.5-73.1); Platelet Count Result 242 k/mm3 (150-375); Red Blood Count 2.71 M/mm3 (4.2-5.4); Red Cell Distribution Width 16.3 % (11.5-14.5); White Blood Count 7.7 K/mm3 (4.5-10.0)
[2025-01-20 06:17] LABS: Alanine Aminotransferase 16 U/L (6-35); Albumin Level 3.6 g/dL (3.5-5.1); Alkaline Phosphatase 297 U/L (38-126); Anion Gap 11 mmol/L (4-12); Aspartate Amino Transferase 22 U/L (14-36); Bilirubin,Total 1.1 mg/dL (0.2-1.3); Blood Urea Nitrogen 35 mg/dL (7-17); Calcium 8.8 mg/dL (8.4-10.2); Carbon Dioxide 21 mmol/L (22-30); Chloride 101 mmol/L (98-107); Estimated CRCL calculation 20 ml/min; Estimated Glomerular Filt Rate 17; Glucose 82 mg/dL (65-110); Potassium 4.5 mmol/L (3.4-5.0); Sodium 133 mmol/L (137-145)
[2025-01-20 08:11] LABS: Glucose Point of Care 116 mg/dl (65-105)
[2025-01-20] MEDS: ASCORBIC ACID 500 MG TABLET PO (08:48)
[2025-01-20] MEDS: PYRIDOXINE HCL 50 MG TABLET 100 MG PO (08:48)
[2025-01-20] MEDS: MIDODRINE HCL 2.5 MG TABLET 5 MG PO ×3 (08:48→17:15)
[2025-01-20] MEDS: MIDODRINE HCL 10 MG TABLET PO ×2 (08:48→17:15)
[2025-01-20] MEDS: CYANOCOBALAMIN 1,000 MCG TABLET 3000 MCG PO (08:48)
[2025-01-20] MEDS: SODIUM BICARBONATE TAB 650 MG TABLET PO ×2 (08:48→17:16)
[2025-01-20] MEDS: ASPIRIN 81 MG ENTERIC TABLET PO (08:49)
[2025-01-20] MEDS: FERROUS SULFATE 325 MG TABLET DR BY MOUTH (08:49)
[2025-01-20] MEDS: THIAMINE HCL 100 MG TABLET PO (08:49)
[2025-01-20] MEDS: POTASSIUM CHLORIDE 10 MEQ ER TABLET PO (08:49)
[2025-01-20] MEDS: EMPAGLIFLOZIN 10 MG TABLET PO (08:49)
[2025-01-20] MEDS: FOLIC ACID 0.4 MG TABLET 0.8 MG PO (08:49)
[2025-01-20] MEDS: THERAPEUTIC MULTIVITAMINS/MINERALS TAB (*BKC) 1 TABLET PO (08:49)
[2025-01-20] MEDS: MAGNESIUM OXIDE 400 MG TABLET 200 MG PO (08:50)
[2025-01-20] MEDS: PANTOPRAZOLE 40 MG TABLET PO ×2 (08:50→17:17)
[2025-01-20] MEDS: ATORVASTATIN 10 MG TABLET PO (08:53)
[2025-01-20] MEDS: EUCERIN CREAM 120 GM JAR 1 APPLIC TOPICAL (08:59)
[2025-01-20] MEDS: calcitrioL 0.25 MCG CAPSULE PO (08:59)
--- NOTE | 2025-01-20 09:10 | PCOTNOTE ---
Attempted to see Patient at this time. Patient declined treatment at this time, states she just returned from having an abdominal CT done, needs rest, come back at a later time.
[2025-01-20] MEDS: ONDANSETRON INJ 4 MG/2 ML VIAL IV PUSH (09:44)
[2025-01-20] MEDS: HYDROcodone/acetaminophen (*CRX) 5-325 MG TABLET 1 TAB PO (10:32)
--- NOTE | 2025-01-20 11:15 | P.CONNP_ITS ---
Assessment and Plan Assessment and plan (1) CATHRYN (acute kidney injury): Code(s): N17.9 - Acute kidney failure, unspecified Status: Acute Assessment and Plan: * baseline renal function/creatinine on admission * up to 2.7mg/dl today (01/20) * initial rise in creatinine noted on 01/17 * suspect multifactorial: * diuresis * contrast exposure (CT on 01/16) * relative hypotension * infection(?) * other (?) * check urine studies and CPK * repeat CT of A/P noted * diuretics on hold * follow trend of repeat labs and UOP (2) Chronic kidney disease, stage 3: Qualifiers: Chronic kidney disease stage 3 subtype: stage 3b (GFR 30-44) Qualified Code(s): N18.32 - Chronic kidney disease, stage 3b Code(s): N18.30 - Chronic kidney disease, stage 3 unspecified Status: Chronic Assessment and Plan: * baseline creatinien runs ~ 1.3 - 1.7mg/dl * this causes her to fluctuate between CKD stage 3A and stage 3B * creatinine has been higher in the due to more aggresive diuresis * presumably related to her CHF, previous HTN (not an issue now), DM, vascular disease, liver disease and need for chronic diuretic therapy (3) Acute on chronic diastolic (congestive) heart failure: Code(s): I50.33 - Acute on chronic diastolic (congestive) heart failure Status: Acute Assessment and Plan: * as noted by clinical exam and imaging to date * elevated BNP * CXR showed mild interstitial edema and a small right pleural effusion * last Echo (Oct 2024) with normal systolic function, estimated EF 60 65%, grade 2 diastolic dysfunction. * known history of liver cirrhosis complicates matters * diuretics on hold given #1 * follow daily weights and I/Os (4) Fall from ground level: Code(s): W18.30XA - Fall on same level, unspecified, initial encounter Status: Acute Assessment and Plan: * no acute trauma or injjury * imaging with redemonstrated known right medial tibial plateau fracture (from October of 2024) * PT/OT evaluation and treatment as tolerated * pain control as needed. (5) Chronic anemia: Code(s): D64.9 - Anemia, unspecified Status: Chronic Assessment and Plan: * likely related to CKD and liver disease * PRBC transfusion per protocol * follow trend of H/H (6) Chronic hyponatremia: Code(s): E87.1 - Hypo-osmolality and hyponatremia Status: Chronic Assessment and Plan: * stable at this time * was on salt tablets (7) Alcoholic cirrhosis of liver: Qualifiers: Ascites presence: without ascites Qualified Code(s): K70.30 - Alcoholic cirrhosis of liver without ascites Code(s): K70.30 - Alcoholic cirrhosis of liver without ascites Status: Chronic Assessment and Plan: * known history * follows with GI * LFTs normal * continue supportive therapy (8) Diabetes mellitus: Qualifiers: Diabetes mellitus type: type 2 Diabetes mellitus intermediate insulin use: with manager terminal use Diabetes mellitus complication status: without complication Qualified Code(s): E11.9 - Type 2 diabetes mellitus without complications; Z79.4 - half-way (current) use of insulin Code(s): E11.9 - Type 2 diabetes mellitus without complications Status: Chronic Assessment and Plan: * follow accu-cheks * glycemic control per hospitalist I will continue to follow the patient with you while she remains hospitalized and make further recommendations as needed. Thank you for allowing me to participate in care this patient. L History of Present Illness Reason for Consult Consult date: 01/20/25 Reason for consult: acute renal failure (on chronic kidney disease) Chief Complaint Chief complaint: GLF, L knee strain,unable to ambulate, hypotension History of Present Illness Narrative: The ebeneezr is a 69y/o female with a past medical history as noted below who presented to [facility] ER via EMS after sustaining a ground level fall. Apparently, she was attempting to transfer to her wheelchair which led to her fall - she states she misjudged the distance between her position and the wheelchair. She fell on her left side and with subsequent pain in her left leg.Following the fall, she was unable to bear weight on her left leg due to weakness and pain and she subsequent called EMS for assistance. It should be noted the patient had a recent closed medial tibial plateau fracture in late October of 2024 and conservative therapy with a new a mobilizer and rehab was prescribed. When she followed up with her orthopedic surgeon in mid December of this year, her knee immobilizer was removed and she was made weight-bearing as tolerated with ongoing physical and occupational therapy. She was just recently discharged from [facility] a week or 2 ago. Since her discharge from [facility], she has been having increasing problems with lower extremity swelling / edema and increasing abdominal girth. 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 Aside from the worsening lower extremity and abdominal edema, she voiced no complaints of fevers, chills, nausea, vomiting, body aches, chest pain, or shortness of breath. She was robbed by EMS to the emergency room for further evaluation of her fall and complaints of swelling/edema. Workup and evaluation emergency room demonstrated the patient be in no acute distress but was somewhat hypotensive with a BP in the systolic range of high 80s. Routine blood test demonstrated no leukocytosis, hemoglobin 8.1, sodium 131, creatinine 1.45, BNP of 87 40, albumin of 2.8, and a urinalysis that was only significant for 1+ glucose. Ultrasound of the bilateral lower extremity showed no evidence of a DVT and her chest x-ray showed mild interstitial edema and a small right pleural effusion. Knee x-ray showed a medial tibial plateau fracture without any significant depression and a subsequent CT scan of the abdomen pelvis demonstrated prominence of the common bile duct with a 4 mm stone in the distal common bile duct, multiple calcifications within the ivan hepatics S with otherwise no other acute findings. Given her multitude of complaints and laboratory findings, she was admitted to the hospital for further evaluation and therapy. Since her admission, she was instituted on diuretic therapy in effort to optimize her fluid/volume/edema status but her creatinine has worsened up to 2.7 mg/dL by labs done this morning in comparison to her admission creatinine 1.45 mg/dL. Renal consultation was requested due to her acute kidney injury on top of her baseline chronic kidney disease. The patient is quite familiar to me as I follow her in the office for management of her chronic kidney disease although I have not seen her in the office for an extended period of time due to her mulitple hospitalizations and stays at rehab facilities. Her baseline creatinine has fluctuated to extremes in the last year anywhere from as low as 1.0 mg/dL to as high as 1.7 mg/dL and she seems to average out somewhere around 1.3 - 1.7 mg/dL at baseline. Her underlying renal insufficiency is thought to be secondary to her hypertension, diabetes, obstructive sleep apnea, vascular disease, and age as well as the necessity of chronic diuretic therapy to maintain her volume status given her chronic edema/swelling related to her diastolic CHF and liver disease. Her lower creatinines can sometimes be misleading as it can reflect her volume overload status and associated hemodilutional value/reading. Currently, at the time my evaluation, she does not appear to be any acute distress. [facility] Past Medical History Medical History Alcoholic cirrhosis of liver Chronic venous insufficiency of lower extremity Stage 3a chronic kidney disease Shingles ANTHONY (obstructive sleep apnea) Osteoporosis Gram-negative bacteremia Anemia of chronic disease Ascites Obesity (BMI 30-39.9) Hyperlipidemia, unspecified Carotid artery disease Alcohol abuse Osteoarthritis Diastolic dysfunction ECHO 10/2023: normal LV systolic function, estimated EF of 60-65%, abnormal diastolic dysfunction. Left-sided carotid artery disease US 01/2021: 50 to 69% stenosis of the left ICA. Orthostatic hypotension on midodrine, chronic hypotension, previously caused syncope and frequent falls and subsequent fractures. Insulin dependent type 2 diabetes mellitus A1C 5.1% 08/2024 Hypertension Chronic hyponatremia Eczema Periprosthetic fracture of femur following total replacement of hip (01/2020) Non operative treatment. GERD (gastroesophageal reflux disease) Surgical History Surgical History Status post open reduction with internal fixation of fracture (05/30/21) ORIF of comminuted intra-articular fracture of the distal left femur, done at [facility]. History of hysterectomy (2005) Due to uterine fibroids and endometriosis. History of bilateral cataract extraction History of lumbar surgery (2005) L1-L3. History of right hip replacement (2005) Per Dr. Curiel in [place]. Family History Family History Father Heart attack Mother Diabetes mellitus COPD (chronic obstructive pulmonary disease) Hypertension Afib Sibling Amputation above knee Diabetes mellitus Father , At age 50 Acute myocardial infarction Sibling , At age 50 Pancreatic cancer Social History Social History Social History: The patient lives in her own home in [place]. She has been twice, her 1st and she has since her 2nd . She has no children. She moved to this area within the last couple of years from [place] to be close to her 3 remaining siblings. She worked from home for a a [employer] doing [employer] and she has a master's degree in statistics. She has recently retired.She smoked up to 2 packs of cigarettes a day before quitting in 2005. She drinks 2 mixed drinks a day, each containing a shot of vodka which equals out to about 1 L to 1.7 L of vodka a week. She denies illicit substance use. Surrogate decision maker: Miladys Jensen, sister. Code status: Full code. Smoking packs per day: 2 Smoking cigarettes per day: 40.0 Years smoked: 30 Smoking pack-years: 60.00 Smoking status: Former smoker Smokeless tobacco user: chewing tobacco Second hand tobacco smoke exposure: Yes Alcohol intake: current Drinks per week: 14 Substance use: never Substance use type: does not use Do You Feel Safe in your Home?: Yes Lack of Transportation: No Lack of Food: Never True Current Housing: I Have Housing Concerned About Future Housing: No Difficulty Paying Gas/Electric Bills: No Difficulty Paying for Meds: No Currently Unemployed: No Education: Master's Degree or Higher Difficulty w/ Childcare or Family Care: No Living arrangements: alone Occupation/Education: retired Gender identity (if verbalized by the patient): Female Sexual Orientation (if Verbalized by the Patient): Straight or Heterosexual Spiritual care concerns: No Meds Home Medications and Allergies Home Medications ?Medication ?Instructions ?Recorded ?Confirmed ?Type fluticasone propionate 50 1 spray intranasal DAILY PRN 08/16/20 01/16/25 History mcg/actuation nasal allergies spray,suspension thiamine HCl (vitamin B1) 100 mg 100 mg PO QAM #30 tabs 08/18/20 01/16/25 Rx tablet (Vitamin B-1) ahwmmwigyxpm-Xv-dfgo-minerals 1 tablet PO DAILY #30 tabs 01/16/21 01/16/25 Rx (Multiple Vitamin, Womens tablet) mecobalamin (vitamin B12) 1,000 3,000 mcg PO DAILY 05/13/21 01/16/25 History mcg chewable tablet pyridoxine (vitamin B6) 100 mg 100 mg PO DAILY 05/13/21 01/16/25 History tablet magnesium oxide 400 mg (241.3 mg 250 mg PO QAM 06/06/21 01/16/25 History magnesium) tablet blood sugar diagnostic #360 ea 10/31/22 01/16/25 Rx empagliflozin 10 mg tablet 10 mg PO DAILY #30 tabs 10/26/23 01/16/25 Rx (Jardiance) spironolactone 25 mg tablet 25 mg PO QAM #30 tabs 10/26/23 01/16/25 Rx alendronate 70 mg tablet 70 mg PO WEEKLY #12 tabs 12/12/23 01/16/25 Rx atorvastatin 10 mg tablet 10 mg PO QAM #90 tabs 06/10/24 01/16/25 Rx ascorbate calcium (vitamin C) 500 500 mg PO DAILY 06/20/24 01/16/25 History mg tablet aspirin 81 mg tablet,delayed 81 mg PO DAILY 06/20/24 01/16/25 History release folic acid 800 mcg tablet 0.8 mg PO DAILY 06/20/24 01/16/25 History calcitriol 0.25 mcg capsule 0.25 mcg PO 4XW #16 caps 08/23/24 01/16/25 Rx pen needle, diabetic 32 gauge x #360 ea 09/11/24 01/16/25 Rx 5/32 (BD Muriel 2nd Gen Pen Needle) blood-glucose sensor (Dexcom G7 #3 ea 09/13/24 01/16/25 Rx Sensor device) potassium chloride 10 mEq 10 meq PO DAILY #90 caps 09/30/24 01/16/25 Rx capsule,extended release insulin glargine 100 unit/mL (3 See Rx Instructions .Route 10/25/24 01/16/25 Rx mL) subcutaneous pen (Lantus .COMPLEX #15 mL Solostar U-100 Insulin) carvedilol 6.25 mg tablet 6.25 mg PO Q12H #60 tabs 12/31/24 01/16/25 Rx albuterol sulfate 2.5 mg/3 mL 2.5 mg inhalation Q8H PRN 01/16/25 01/16/25 History (0.083 %) solution for nebulization shortness of breath or wheezing ferrous sulfate 325 mg (65 mg 325 mg PO DAILY 01/16/25 01/16/25 History iron) tablet (Leonard-Time) insulin lispro 100 unit/mL 3 unit subcut TID 01/16/25 01/16/25 History subcutaneous pen (Humalog KwikPen (U-100) Insulin) lanolin alcohols-mineral 1 applic topical DAILY 01/16/25 01/16/25 History oil-w.petrolatum-ceresin topical cream loperamide 2 mg capsule 2 mg PO QID PRN loose stool 01/16/25 01/16/25 History (Anti-Diarrheal (loperamide)) midodrine 10 mg tablet 10 mg PO TID PRN dizziness or 01/16/25 01/16/25 History vertigo ondansetron 4 mg disintegrating 4 mg PO Q6H PRN nausea and vomiting 01/16/25 01/16/25 History tablet pantoprazole 40 mg tablet,delayed 40 mg PO BID 01/16/25 01/16/25 History release sennosides 8.6 mg tablet (senna) 8.6 mg PO DAILY PRN constipation 01/16/25 01/16/25 History bumetanide 1 mg tablet 1 mg PO DAILY #30 tabs 01/25/25 Rx Allergies Allergy/AdvReac Type Severity Reaction Status Date / Time codeine AdvReac Unknown Headache Verified 01/16/25 17:56 Vital Signs Vital Signs Temp Pulse Resp BP Pulse Ox O2 Del Method FiO2 01/20/25 11:13 96.4 F L 90 22 H 128/69 96 01/20/25 08:00 90 01/20/25 08:00 Room Air 01/20/25 08:00 96.1 F L 88 20 136/59 L 96 01/20/25 04:00 96.9 F L 80 24 H 114/49 L 97 01/20/25 04:00 76 01/20/25 00:00 76 01/20/25 00:00 96.9 F L 77 24 H 127/52 L 98 01/19/25 20:00 80 01/19/25 20:00 97 F L 80 24 H 117/49 L 100 01/19/25 20:00 78 20 99 Room Air 21 Exam 2 Narrative: GENERAL APPEARANCE: elderly but well developed well nourished female in no acute distress HEENT: normocephalic, atraumatic, normal conjunctiva and sclera, nares patient NECK: no lymphadenopathy, thyromegaly, or JVD MOUTH: normal lips, teeth, and gums CARDIOVASCULAR: RRR, normal S1 and S2, no rub detected RESPIRATORY: coarse breath sounds; decreased at bases ABDOMEN: mildly distended with decreased bowel sounds present EXTREMITIES: no evidence of cyanosis, clubbing, 2+ chronic edema NEUROLOGICAL: alert and oriented x 3; CN II - XII intact bilaterally; no focal deficits noted SKIN: chronic skin changes noted Results Lab Results 01/25/25 06:26 01/25/25 06:26 Lab results: Most recent lab results Calcium 8.8 mg/dL (8.4-10.2) 01/20/25 05:25
[2025-01-20 11:32] LABS: Glucose Point of Care 188 mg/dl (65-105)
--- NOTE | 2025-01-20 11:53 | P.PNIM_ITS ---
Progress Note: A&P Assessment and Plan (1) Acute on chronic diastolic (congestive) heart failure: Code(s): I50.33 - Acute on chronic diastolic (congestive) heart failure Status: Acute Assessment and Plan: * BNP 1740 * CXR shown mild interstitial edema and a small right pleural effusion * Last echo from 10/31/24 shown normal LV systolic function with an estimated EF of 60-65%, grade 2 diastolic dysfunction * Patient has history of cirrhosis and is now chronically hypotensive on midodrine * Continue diuresis as tolerated considering blood pressures are low * Continue Lasix and spironolactone 01/18 * Increase spironolactone to 50 mg daily 01/19 * Will hold Lasix and Spironolactone considering worsening renal function 01/20 * After careful review of her medical record, it appears she was on Bumex up until November of this year. She had a hospitalization at [facility] and was transitioned from Bumex to Lasix likely due to her CHF. She was discharged to [facility] for rehab and came back here with increased swelling and anasarca. * Will get Nephrology on board for further assistance with diuresis. (2) Gallstones: Code(s): K80.20 - Calculus of gallbladder without cholecystitis without obstruction Status: Acute Assessment and Plan: * CT of the abdomen and pelvis showed prominence of common bile duct with a 4 mm stone in the distal common bile duct * GI following and recommends surgical consult * General surgery recommends transfer to tertiary care facility where she can be managed by a team of liver specialists and hepatobiliary surgeons who treat patients with this degree of cirrhosis. * Meld score 20 due to her alcohol liver cirrhosis 01/18 * US guided paracentesis ordered 01/19 * Will hold off on US guided paracentesis and get repeat CT of the chest/abdomen/pelvis (3) Fall from ground level: Code(s): W18.30XA - Fall on same level, unspecified, initial encounter Status: Acute Assessment and Plan: * Trauma workup negative for acute fracture * Some imaging redemonstrated a right medial tibial plateau fracture that dated back to October of this year * PT and OT ordered * Patient recently had a long rehab stay and was discharged about 2 weeks ago. She was in a knee immobilizer up until about 2 weeks ago. She was seen by Orthopedic surgery at [facility]. * Continue pain control * Continue fall precautions 01/18 * No change to current treatment plan (4) Pressure ulcer, heel, right, unstageable: Code(s): L89.610 - Pressure ulcer of right heel, unstageable Status: Acute Assessment and Plan: * Wound nurse consulted * Continued dressing changes per Wound nursing orders 01/18 * No change to current treatment plan (5) Pressure ulcer of sacral region: Qualifiers: Pressure injury stage: unspecified pressure injury stage Qualified Code(s): L89.159 - Pressure ulcer of sacral region, unspecified stage Code(s): L89.159 - Pressure ulcer of sacral region, unspecified stage Status: Acute Assessment and Plan: * Wound nurse consulted * Continue dressing changes per Wound nurse orders 01/18 * No change to current treatment plan (6) Insulin dependent type 2 diabetes mellitus: Code(s): E11.9 - Type 2 diabetes mellitus without complications; 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 * Received albumin today * Continue to monitor blood pressures 01/18 * Blood pressures ranging 96/42-110/55 * Continue Midodrine (8) Alcoholic cirrhosis of liver: Qualifiers: Ascites presence: without ascites Qualified Code(s): K70.30 - Alcoholic cirrhosis of liver without ascites Code(s): K70.30 - Alcoholic cirrhosis of liver without ascites Status: Chronic Assessment and Plan: * Of note (9) Chronic kidney disease, stage 3: Qualifiers: Chronic kidney disease stage 3 subtype: stage 3b (GFR 30-44) Qualified Code(s): N18.32 - Chronic kidney disease, stage 3b Code(s): N18.30 - Chronic kidney disease, stage 3 unspecified Status: Chronic Assessment and Plan: * Currently at her baseline function * Initial creatinine 1.45, EGFR 36 01/18 * Creatinine 2.33 today * Continue to monitor * Spironolactone increased to 50 mg daily 01/19 * Creatinine 2.60 * Will hold diuretics today due to worsening kidney function despite diuresis 01/20 * Creatinine 2.70 today * Nephrology consulted for further assistance with diuresis efforts * CT of the Chest/ abdomen/pelvis shown shown large pleural effusion * Will obtain thoracentesis today * Patient was recently discharged with Lasix instead of Bumex from her hospital stay back in Nov of this year. She has noticed worsening SOB and swelling since that change. Likely will need to change back to Bumex--will defer to Nephrology recommendation (10) Chronic hyponatremia: Code(s): E87.1 - Hypo-osmolality and hyponatremia Status: Chronic Assessment and Plan: * Sodium is 133 and at her baseline * Continue to monitor (11) Chronic anemia: Code(s): D64.9 - Anemia, unspecified Status: Chronic Assessment and Plan: Iron deficiency anemia Likely secondary to her cirrhosis * Hemoglobin 7.6 * Transfuse if less than 7 * Will start ferrous sulfate * Will check iron level 01/18 * Hgb 8.1 * Iron level 24 * Will give IV dose of Iron now * continue ferrous sulfate tomorrow 01/19 * no change to current treatment plan Time Spent With Patient Time with patient: 25 - 35 minutes Subjective Date/time seen: 01/20/25 11:53 Interval history: Interval summary: This is a 69-year-old female with a significant past medical history of cirrhosis, alcohol abuse, diastolic dysfunction, diabetes, hyponatremia, anemia, chronic venous insufficiency with lipodermatosclerosis who presented to the hospital for evaluation after a ground level fall And hypotension. Workup in the hospital included venous Doppler which was negative for DVT. Chest x-ray showed mild interstitial edema, small right pleural effusion. Left knee x-ray showed medial tibial plateau fracture without significant depression. Abdomen/pelvis CT shown prominence of the common bile duct with a 4 mm stone in the distal common bile duct, multiple calcifications identified in the ivan hepatis without definitive ductal obstruction. left knee CT shown curvilinear subcortical sclerosis underlying the significant portion of the medial tibial plateau without evident acute appearing fracture line or associated marrow edema which could represent either chronic osteochondral lesions/bone infarct or old fracture. Initial labs showed a normal white blood cell count of 7.2, hemoglo bin 8.1, ESR 79, sodium 131, creatinine 1.45, EGFR 36, blood sugar ranging 102- 163, lactic acid was normal at 1.3, alkaline phosphate 339, CRP 5.2, proBNP 8740. UA was obtained which showed 1+ glucose otherwise unremarkable. EKG showed sinus rhythm with right axis deviation with a rate of 74, QTC 470. Patient was given midodrine and albumin while in the ED as well as Lasix. PT and OT were ordered for evaluation and treatment. Subjective: Patient still has labored breathing today. CT of the chest/abdomen/pelvis showing Large pleural effusion. Labs showing worsening kidney function despite her oral diuretic medications. Review of Systems Review of Systems: All systems reviewed & are unremarkable except as noted in HPI and below Exam Narrative: General: In no acute distress, well nourished Cardiac: Normal S1 and S2. No murmur, gallops or friction rubs, peripheral pulses intact. Respiratory: Lungs mild expiratory wheezing bilaterally, no adventitious lung sounds, currently on room air, tachypnea Gastrointestinal:distended and taunt, non-tender, normoactive bowel sounds. Patient having bowel movements : voiding without difficulty. Extremities: moves all extremities, decreased ROM of LLE/knee, mild edema bilateral lower extremities Skin: bilateral jackson erythema Neuro: Alert and oriented x4 Objective Data Vital Signs Vital Signs: Vital Signs - 24 hr 01/19/25 12:00 01/19/25 15:36 01/19/25 16:00 Temperature 98.3 F Pulse Rate 85 81 78 Respiratory Rate 20 Blood Pressure 127/61 Pulse Oximetry 99 Oxygen Delivery Fraction of Inspired Oxygen 01/19/25 20:00 01/19/25 20:00 01/19/25 20:00 Temperature 97 F L Pulse Rate 78 80 80 Respiratory Rate 20 24 H Blood Pressure 117/49 L Pulse Oximetry 99 100 Oxygen Delivery Room Air Fraction of Inspired Oxygen 21 01/20/25 00:00 01/20/25 00:00 01/20/25 04:00 Temperature 96.9 F L Pulse Rate 77 76 76 Respiratory Rate 24 H Blood Pressure 127/52 L Pulse Oximetry 98 Oxygen Delivery Fraction of Inspired Oxygen 01/20/25 04:00 01/20/25 08:00 01/20/25 08:00 Temperature 96.9 F L 96.1 F L Pulse Rate 80 88 Respiratory Rate 24 H 20 Blood Pressure 114/49 L 136/59 L Pulse Oximetry 97 96 Oxygen Delivery Room Air Fraction of Inspired Oxygen 01/20/25 08:00 01/20/25 11:53 Temperature 96.4 F L Pulse Rate 90 90 Respiratory Rate 22 H Blood Pressure 128/69 Pulse Oximetry 96 Oxygen Delivery Fraction of Inspired Oxygen Intake/Output Intake/Output: Intake & Output 01/17/25 01/18/25 01/19/25 01/20/25 23:59 23:59 23:59 23:59 Intake Total 1310 1010 1466 440 Output Total 600 150 525 350 Balance 710 860 941 90 Meds/Results Medications: Active Medications Generic Name Dose Route Start Last Admin Trade Name Freq PRN Reason Stop Dose Admin Acetaminophen 650 mg 01/16/25 15:05 Acetaminophen 325 Mg Tablet PO Q4H PRN Mild Pain (1-3) or Fever Hydrocodone Bitart/Acetaminophen 1 tab 01/16/25 15:05 01/20/25 10:32 Hydrocodone/Acetaminophen (*Crx) 5-325 Mg Tablet PO 1 tab Q4H PRN Administration Pain Rated 4-6 Albuterol 2.5 mg 01/16/25 22:54 01/18/25 10:57 Albuterol Sulfate Neb 2.5 Mg/3 Ml Inh INHALATION 2.5 mg Q8H PRN Administration shortness of breath or wheezing Alendronate Sodium 70 mg 01/21/25 07:00 Alendronate Sodium 70 Mg Tablet PO Tu@0700 [facility] Ascorbic Acid 500 mg 01/17/25 09:00 01/20/25 08:48 Ascorbic Acid 500 Mg Tablet PO 500 mg DAILY NEIL Administration Aspirin 81 mg 01/17/25 09:00 01/20/25 08:49 Aspirin 81 Mg Enteric Tablet PO 81 mg DAILY NEIL Administration Atorvastatin Calcium 10 mg 01/17/25 09:00 01/20/25 08:53 Atorvastatin 10 Mg Tablet PO 10 mg QAM NEIL Administration Calcitriol 0.25 mcg 01/17/25 09:00 01/20/25 08:59 Calcitriol 0.25 Mcg Capsule PO 0.25 mcg [id number] [facility] Administration Carvedilol 6.25 mg 01/16/25 22:55 01/17/25 10:11 Carvedilol 6.25 Mg Tablet PO Not Given Q12HR NEIL Cyanocobalamin 3,000 mcg 01/17/25 09:00 01/20/25 08:48 Cyanocobalamin 1,000 Mcg Tablet PO 3,000 mcg QAM NEIL Administration Dextrose 12.5 gm 01/16/25 15:05 Dextrose 50% 25 Gm/50 Ml Syringe IV PUSH PRN PRN Hypoglycemia Protocol Empagliflozin 10 mg 01/17/25 09:00 01/20/25 08:49 Empagliflozin 10 Mg Tablet PO 10 mg DAILY NEIL Administration Enoxaparin Sodium 30 mg 01/19/25 09:00 01/19/25 09:01 Enoxaparin 30 Mg/0.3 Ml Syringe SUB-Q 30 mg DAILY NEIL Administration Ferrous Sulfate 325 mg 01/17/25 09:00 01/20/25 08:49 Ferrous Sulfate [address] BY MOUTH 325 mg DAILY NEIL Administration Ferrous Sulfate 325 mg 01/18/25 09:00 01/18/25 10:18 Ferrous Sulfate [address] PO Not Given BID NEIL Fluticasone Propionate 2 spray 01/16/25 22:54 Fluticasone Propionate 0.05% Na Spr 16 Gm Btl (*Bkc) NASAL DAILY PRN allergies Folic Acid 0.8 mg 01/17/25 09:00 01/20/25 08:49 Folic Acid 0.4 Mg Tablet PO 0.8 mg QAM NEIL Administration Furosemide 40 mg 01/17/25 09:00 01/19/25 08:58 Furosemide 40 Mg Tablet PO 40 mg DAILY NEIL Administration Glucagon 1 mg 01/16/25 15:05 Glucagon For Inj 1 Mg Vial IM PRN PRN Hypoglycemia Protocol Glucose 15 gm 01/16/25 15:05 01/17/25 08:05 Glucose Oral Gel 15 Gm Of Glucse In 37.5 Gm Tube PO 15 gm PRN PRN Administration Hypoglycemia Protocol Dextrose 1,000 mls @ 100 mls/hr 01/16/25 15:05 Dextrose 5% 1,000 Ml IVPB PRN PRN Hypoglycemia Protocol Insulin Aspart 4 - 8 units 01/16/25 17:00 01/20/25 08:19 Insulin Aspart (*Bkc) 100 Units/Ml SUB-Q Not Given TIDWM NEIL Protocol Insulin Aspart 3 units 01/17/25 08:00 01/20/25 08:19 Insulin Aspart (*Bkc) 100 Units/Ml SUB-Q Not Given TIDWM NEIL Insulin Glargine 15 units 01/16/25 22:55 01/19/25 20:24 Insulin Glargine (*Bkc) 100 Units/Ml SUB-Q Not Given HS NEIL Loperamide HCl 2 mg 01/16/25 22:54 Loperamide Hcl 2 Mg Capsule PO QID PRN loose stool Magnesium Oxide 200 mg 01/17/25 09:00 01/20/25 08:50 Magnesium Oxide 400 Mg Tablet PO 200 mg QAM [facility] Administration Midodrine 5 mg 01/17/25 18:00 01/20/25 08:48 Midodrine Hcl 2.5 Mg Tablet PO 5 mg TID [facility] Administration Midodrine 10 mg 01/17/25 18:00 01/20/25 08:48 Midodrine Hcl 10 Mg Tablet PO 10 mg TID NEIL Administration Miscellaneous Information 1 each 01/17/25 00:01 01/16/25 23:47 Tacromilus 0.03% Ointment Is Nonformulary; Can Pt Use From Home Or Pharmacy Carries 0.1% O XX 02/16/25 00:00 Not Given CLARIFY NEIL Multi-Ingred Cream/Lotion/Oil/Oint 1 applic 01/17/25 09:00 01/20/25 08:59 Eucerin Cream 120 Gm Jar TOPICAL 1 applic DAILY [facility] Administration Multivitamins/Calcium 1 tablet 01/17/25 09:00 01/20/25 08:49 Therapeutic Multivitamins/Minerals Tab (*Bkc) PO 1 tablet DAILY [facility] Administration Ondansetron HCl 4 mg 01/16/25 15:05 01/20/25 09:44 Ondansetron Inj 4 Mg/2 Ml Vial IV PUSH 4 mg Q4H PRN Administration Nausea Pantoprazole Sodium 40 mg 01/17/25 09:00 01/20/25 08:50 Pantoprazole 40 Mg Tablet PO 40 mg BID [facility] Administration Potassium Chloride 10 meq 01/17/25 08:00 01/20/25 08:49 Potassium Chloride 10 Meq Er Tablet PO 10 meq DAILY@0800 [facility] Administration Pyridoxine HCl 100 mg 01/17/25 09:00 01/20/25 08:48 Pyridoxine Hcl 50 Mg Tablet PO 100 mg QAM [facility] Administration Senna 8.6 mg 01/16/25 22:54 Sennosides 8.6 Mg Tablet PO DAILY PRN constipation Sodium Bicarbonate 650 mg 01/19/25 17:00 01/20/25 08:48 Sodium Bicarbonate Tab 650 Mg Tablet PO 650 mg BID NEIL Administration Sodium Chloride 6 ml 01/21/25 05:00 Sodium Chlor 3% 15 Ml Neb (Respiratory Therapy) INHALATION 01/23/25 05:01 DAILY@0500 NEIL Spironolactone 50 mg 01/19/25 09:00 01/19/25 08:58 Spironolactone 25 Mg Tablet PO 50 mg QAM NEIL Administration Tacrolimus 1 applic 01/17/25 09:00 Tacrolimus 0.03% 30 Gm Ointment TOPICAL BID NEIL Thiamine HCl 100 mg 01/17/25 09:00 01/20/25 08:49 Thiamine Hcl 100 Mg Tablet PO 100 mg QAM NEIL Administration Radiology Results: ITS Impressions Venous Doppler Study 01/16/25 11:37 IMPRESSION: 1: No lower extremity deep venous thrombosis. Chest X-Ray 01/16/25 12:37 Impression: 1: Mild interstitial edema. 2: Small right pleural effusion. Knee X-Ray 01/16/25 12:39 Impression: 1: Medial tibial plateau fracture without significant depression. Recommend correlation with CT or MRI. Abdomen/Pelvis CT 01/16/25 12:46 IMPRESSION: Prominence of the common bile duct with a 4 mm stone in the distal common bile duct. Multiple calcifications have been identified within the ivan hepatis on prior studies, without definitive ductal obstruction, present on the current examination secondary to positioning and technique. Remaining findings within the lower chest, abdomen and pelvis are chronic and unchanged from prior study, as detailed above. Knee CT 01/16/25 13:11 IMPRESSION: 1. Curvilinear subarticular sclerosis underlying the significant portion of the medial tibial plateau without evident acute appearing fracture line or associated marrow edema which could represent either chronic osteochondral lesion/bone infarct or old fracture. Could consider further evaluation with MRI if there is high suspicion for acute fracture. Chest/Abdomen/Pelvis CT 01/20/25 09:00 Impression: Large irregular probable effusion and small left pleural effusion with bibasilar atelectatic change. 12 mm groundglass opacity right upper lobe, which could reflect focal edema or atelectatic change. Correlate clinically or focal pneumonitis. Cirrhotic liver with small amount of ascites and diffuse soft tissue anasarca. Cholelithiasis and choledocholithiasis, unchanged. Extensive atherosclerotic disease, as above. Labs Labs: Laboratory Results - last 24 hr 01/19/25 01/19/25 01/19/25 15:53 17:02 20:22 WBC RBC Hgb Hct MCV MCH MCHC RDW Plt Count MPV Immature Gran % (Auto) Neut % (Auto) Lymph % (Auto) [place] % (Auto) Eos % (Auto) Baso % (Auto) Lymph # (Auto) [place] # (Auto) Eos # (Auto) Baso # (Auto) Abs Immat Gran (auto) Absolute Neuts (auto) Absolute Nucleated RBC Nucleated RBC % Sodium Potassium Chloride Carbon Dioxide Anion Gap BUN Creatinine Estim Creat Clear Calc Estimated GFR Glucose POC Capillary Glucose 142 H 162 H Calcium Total Bilirubin AST ALT Alkaline Phosphatase Total Protein Albumin Stl Occult Blood (IFOB) Positive H 01/20/25 01/20/25 01/20/25 05:25 08:07 11:29 WBC 7.7 RBC 2.71 L Hgb 8.5 L Hct 27.4 L MCV 101.1 H MCH 31.4 MCHC 31.0 L RDW 16.3 H Plt Count 242 MPV 10.2 Immature Gran % (Auto) 0.8 H Neut % (Auto) 62.2 Lymph % (Auto) 14.8 L [place] % (Auto) 11.9 H Eos % (Auto) 9.7 H Baso % (Auto) 0.6 Lymph # (Auto) 1.14 [place] # (Auto) 0.9 H Eos # (Auto) 0.8 H Baso # (Auto) 0.1 Abs Immat Gran (auto) 0.06 H Absolute Neuts (auto) 4.8 Absolute Nucleated RBC 0.000 Nucleated RBC % 0.0 Sodium 133 L Potassium 4.5 Chloride 101 Carbon Dioxide 21 L Anion Gap 11 BUN 35 H Creatinine 2.70 H Estim Creat Clear Calc 20 Estimated GFR 17 L Glucose 82 POC Capillary Glucose 116 H 188 H Calcium 8.8 Total Bilirubin 1.1 AST 22 ALT 16 Alkaline Phosphatase 297 H Total Protein 6.0 L Albumin 3.6 Stl Occult Blood (IFOB) Quality VTE Prophylaxis VTE prophylaxis: pharmacologic ordered
[2025-01-20 12:50] LABS: INR 1.3; Prothrombin Time 17.1 Seconds (11.1-14.7)
[2025-01-20 17:36] LABS: pH Pleural Fluid > 7.500 (7.210-7.500)
[2025-01-20 18:37] LABS: Appearance Pleural Fluid Clear (Clear); Color Pleural Fluid Yellow (Colorless); Pleural fluid source Pleural fluid
[2025-01-20 18:38] LABS: Nucleated Cell Pleural Fluid 398 /uL (0-1000)
[2025-01-20 18:39] LABS: Lymphocytes Pleural Fluid 18 %; Macrophages Pleural Fluid 1 %; Mesothelial Cells Pleural Flui 3 %; Monocytes Pleural Fluid 23 %; Neutrophils Pleural Fluid 55 % (0-25); RBC Pleural Fluid < 2000 /uL (0-10000)
[2025-01-20] MEDS: INSULIN GLARGINE (*BKC) 100 UNITS/ML 15 UNITS SUB-Q (20:42)
[2025-01-20 21:06] LABS: Glucose Point of Care 225 mg/dl (65-105)
[2025-01-21] VITALS (11 sets, daily range): BP systolic 115–130; BP diastolic 61–72; PULSE 80–90; RESP 16–24; TEMP 36.2–36.9; O2SAT 98–100
[2025-01-21 05:49] LABS: Basophils Absolute Auto 0.1 K/mm3 (0.0-0.1); Basophils Percent Auto 0.6 % (0.2-1.2); Eosinophils Absolute Auto 0.9 K/mm3 (0-0.3); Eosinophils Percent Auto 11.3 % (0-4.4); Hematocrit 26.6 % (37.0-47.0); Hemoglobin 8.3 g/dL (12.0-15.0); Immature Granulocyte Absolute 0.06 K/mm3 (0.00-0.031); Immature Granulocyte Percent A 0.8 % (0-0.5); Lymphocytes Absolute Auto 0.92 K/mm3 (0.9-3.2); Lymphocytes Percent Auto 11.6 % (18.3-44.2); Mean Corpuscular HGB Conc 31.2 g/dl (32-36); Mean Corpuscular Hemoglobin 31.3 pg (26-34); Mean Corpuscular Volume 100.4 fl (80-100); Mean Platelet Volume 10.2 fl (7.4-10.4); Monocytes Absolute Auto 0.9 K/mm3 (0.1-0.6); Monocytes Percent Auto 11.9 % (2.6-8.5); Neutrophils Absolute Auto 5.1 K/mm3 (1.3-6.7); Neutrophils Percent Auto 63.8 % (45.5-73.1); Platelet Count Result 232 k/mm3 (150-375); Red Blood Count 2.65 M/mm3 (4.2-5.4); Red Cell Distribution Width 16.4 % (11.5-14.5); White Blood Count 7.9 K/mm3 (4.5-10.0)
[2025-01-21 05:57] LABS: Potassium 4.5 mmol/L (3.4-5.0)
[2025-01-21 06:05] LABS: Alanine Aminotransferase 15 U/L (6-35); Albumin Level 3.5 g/dL (3.5-5.1); Alkaline Phosphatase 287 U/L (38-126); Anion Gap 10 mmol/L (4-12); Aspartate Amino Transferase 26 U/L (14-36); Bilirubin,Total 1.3 mg/dL (0.2-1.3); Blood Urea Nitrogen 34 mg/dL (7-17); Calcium 9.1 mg/dL (8.4-10.2); Carbon Dioxide 23 mmol/L (22-30); Chloride 102 mmol/L (98-107); Estimated CRCL calculation 22 ml/min; Estimated Glomerular Filt Rate 20; Glucose 115 mg/dL (65-110); Potassium 4.4 mmol/L (3.4-5.0); Sodium 135 mmol/L (137-145)
[2025-01-21] MEDS: ALENDRONATE SODIUM 70 MG TABLET PO (06:48)
--- NOTE | 2025-01-21 07:56 | P.PNIM_ITS ---
Progress Note: A&P Assessment and Plan (1) Acute on chronic diastolic (congestive) heart failure: Code(s): I50.33 - Acute on chronic diastolic (congestive) heart failure Status: Acute Assessment and Plan: * BNP 1740 * CXR shown mild interstitial edema and a small right pleural effusion * Last echo from 10/31/24 shown normal LV systolic function with an estimated EF of 60-65%, grade 2 diastolic dysfunction * Nephrology consulted for diuresis (2) Gallstones: Code(s): K80.20 - Calculus of gallbladder without cholecystitis without obstruction Status: Acute Assessment and Plan: * CT of the abdomen and pelvis showed prominence of common bile duct with a 4 mm stone in the distal common bile duct * GI following and recommends surgical consult * If patient to became symptomatic she would need to be transfer to tertiary care facility where she can be managed by a team of liver specialists and hepatobiliary surgeons who treat patients with this degree of cirrhosis. On assessment patient has no signs or symptoms of choledocholithiasis or cholecystitis * Meld score 20 due to her alcohol liver cirrhosis (3) Fall from ground level: Code(s): W18.30XA - Fall on same level, unspecified, initial encounter Status: Acute Assessment and Plan: * Trauma workup negative for acute fracture * Some imaging redemonstrated a right medial tibial plateau fracture that dated back to October of this year, She was seen by Orthopedic surgery at [facility]. * PT and OT ordered * Continue pain control * Continue fall precautions * Per patient she is wheelchair-bound and can do pivot transfers (4) Pleural effusion: Code(s): J90 - Pleural effusion, not elsewhere classified Status: Acute Assessment and Plan: Status post thoracentesis yielding 1000 mL of yellow fluid. 01/20 Patient states breathing has improved (5) Hypotension: Qualifiers: Hypotension type: unspecified hypotension type Qualified Code(s): I95.9 - Hypotension, unspecified Code(s): I95.9 - Hypotension, unspecified Status: Chronic Assessment and Plan: Stable * Continue Midodrine (6) Chronic kidney disease, stage 3: Qualifiers: Chronic kidney disease stage 3 subtype: stage 3b (GFR 30-44) Qualified Code(s): N18.32 - Chronic kidney disease, stage 3b Code(s): N18.30 - Chronic kidney disease, stage 3 unspecified Status: Chronic Assessment and Plan: Worsening acute on chronic * Nephrology consulted for further assistance with diuresis efforts (7) Chronic hyponatremia: Code(s): E87.1 - Hypo-osmolality and hyponatremia Status: Chronic Assessment and Plan: Improving * Continue to monitor (8) Chronic anemia: Code(s): D64.9 - Anemia, unspecified Status: Chronic Assessment and Plan: Iron deficiency anemia Likely secondary to her cirrhosis * Hemoglobin 7.6 * Transfuse if less than 7 * given ferrous sulfate * Iron replacement (9) Insulin dependent type 2 diabetes mellitus: Code(s): E11.9 - Type 2 diabetes mellitus without complications; Z79.4 - shelter (current) use of insulin Status: Chronic Assessment and Plan: Hgb A1C 5.1 on 08/26/2025 * Accu checks AC/HS * High-dose SSI ordered * Continue Jardiance, Lantus, * hypoglycemic protocol in place * Diabetic diet ordered (10) Pressure ulcer of sacral region: Qualifiers: Pressure injury stage: unspecified pressure injury stage Qualified Code(s): L89.159 - Pressure ulcer of sacral region, unspecified stage Code(s): L89.159 - Pressure ulcer of sacral region, unspecified stage Status: Acute Assessment and Plan: * Wound nurse consulted * Continue dressing changes per Wound nurse orders (11) Pressure ulcer, heel, right, unstageable: Code(s): L89.610 - Pressure ulcer of right heel, unstageable Status: Acute Assessment and Plan: * Wound nurse consulted * Continued dressing changes per Wound nursing orders (12) Alcoholic cirrhosis of liver: Qualifiers: Ascites presence: without ascites Qualified Code(s): K70.30 - Alcoholic cirrhosis of liver without ascites Code(s): K70.30 - Alcoholic cirrhosis of liver without ascites Status: Chronic Assessment and Plan: * Cirrhotic liver with small amount of ascites and diffuse soft tissue anasarca Time Spent With Patient Time with patient: Greater than 35 minutes Subjective Date/time seen: 01/21/25 07:56 Interval history: Interval summary: This is a 69-year-old female with a significant past medical history of cirrhosis, alcohol abuse, diastolic dysfunction, diabetes, hyponatremia, anemia, chronic venous insufficiency with lipodermatosclerosis who presented to the hospital for evaluation after a ground level fall And hypotension. Hyponatremia slowly improving on a.m. labs, creatinine improved since yesterday CT of the chest/abdomen/pelvis showing Large pleural effusion. Labs showing worsening kidney function despite her oral diuretic medications. Patient still has significant anasarca. Review of Systems Review of Systems: All systems reviewed & are unremarkable except as noted in HPI and below Exam Narrative: General: In no acute distress, well nourished Cardiac: Normal S1 and S2. No murmur, gallops or friction rubs, peripheral pulses intact. Respiratory: Lungs mild expiratory wheezing bilaterally, no adventitious lung sounds, currently on room air, tachypnea Gastrointestinal:distended and taunt, non-tender, normoactive bowel sounds. Patient having bowel movements : voiding without difficulty. Extremities: moves all extremities, decreased ROM of LLE/knee, Skin: bilateral jackson erythema, 4+ nonpitting edema Neuro: Alert and oriented x4 Anasarca Objective Data Vital Signs Vital Signs: Vital Signs - 24 hr 01/20/25 08:00 01/20/25 08:00 01/20/25 08:00 Temperature 96.1 F L Pulse Rate 88 90 Respiratory Rate 20 Blood Pressure 136/59 L Pulse Oximetry 96 Oxygen Delivery Room Air Fraction of Inspired Oxygen 01/20/25 11:53 01/20/25 12:00 01/20/25 16:00 Temperature 96.4 F L Pulse Rate 90 91 83 Respiratory Rate 22 H Blood Pressure 128/69 Pulse Oximetry 96 Oxygen Delivery Fraction of Inspired Oxygen 01/20/25 16:01 01/20/25 19:43 01/20/25 20:00 Temperature 97.3 F L Pulse Rate 87 87 85 Respiratory Rate 20 20 Blood Pressure 131/61 Pulse Oximetry 97 97 Oxygen Delivery Room Air Fraction of Inspired Oxygen 21 01/20/25 22:19 01/21/25 00:00 01/21/25 00:40 Temperature 98.1 F 97.8 F Pulse Rate 85 82 81 Respiratory Rate 20 20 Blood Pressure 129/63 126/72 Pulse Oximetry 100 99 Oxygen Delivery Fraction of Inspired Oxygen 01/21/25 04:00 01/21/25 04:00 01/21/25 04:50 Temperature 97.9 F Pulse Rate 83 90 80 Respiratory Rate 16 18 Blood Pressure 130/67 Pulse Oximetry 100 Oxygen Delivery Fraction of Inspired Oxygen 01/21/25 07:52 Temperature 97.2 F L Pulse Rate 85 Respiratory Rate 18 Blood Pressure 115/61 Pulse Oximetry 99 Oxygen Delivery Fraction of Inspired Oxygen Intake/Output Intake/Output: Intake & Output 01/18/25 01/19/25 01/20/2501/21/25 23:59 23:59 23:59 23:59 Intake Total 1010 1466 920 272 Output Total 026 714 6608 550 Balance 860 373 -7589 -534 Meds/Results Medications: Active Medications Generic Name Dose Route Start Last Admin Trade Name Freq PRN Reason Stop Dose Admin Acetaminophen 650 mg 01/16/25 15:05 Acetaminophen 325 Mg Tablet PO Q4H PRN Mild Pain (1-3) or Fever Hydrocodone Bitart/Acetaminophen 1 tab 01/16/25 15:05 01/20/25 10:32 Hydrocodone/Acetaminophen (*Crx) 5-325 Mg Tablet PO 1 tab Q4H PRN Administration Pain Rated 4-6 Albuterol 2.5 mg 01/16/25 22:54 01/18/25 10:57 Albuterol Sulfate Neb 2.5 Mg/3 Ml Inh INHALATION 2.5 mg Q8H PRN Administration shortness of breath or wheezing Alendronate Sodium 70 mg 01/21/25 07:00 01/21/25 06:48 Alendronate Sodium 70 Mg Tablet PO 70 mg Tu@0700 NEIL Administration Ascorbic Acid 500 mg 01/17/25 09:00 01/20/25 08:48 Ascorbic Acid 500 Mg Tablet PO 500 mg DAILY NEIL Administration Aspirin 81 mg 01/17/25 09:00 01/20/25 08:49 Aspirin 81 Mg Enteric Tablet PO 81 mg DAILY NEIL Administration Atorvastatin Calcium 10 mg 01/17/25 09:00 01/20/25 08:53 Atorvastatin 10 Mg Tablet PO 10 mg QAM NEIL Administration Calcitriol 0.25 mcg 01/17/25 09:00 01/20/25 08:59 Calcitriol 0.25 Mcg Capsule PO 0.25 mcg [id number] NEIL Administration Carvedilol 6.25 mg 01/16/25 22:55 01/17/25 10:11 Carvedilol 6.25 Mg Tablet PO Not Given Q12HR [facility] Cyanocobalamin 3,000 mcg 01/17/25 09:00 01/20/25 08:48 Cyanocobalamin 1,000 Mcg Tablet PO 3,000 mcg QAM NEIL Administration Dextrose 12.5 gm 01/16/25 15:05 Dextrose 50% 25 Gm/50 Ml Syringe IV PUSH PRN PRN Hypoglycemia Protocol Empagliflozin 10 mg 01/17/25 09:00 01/20/25 08:49 Empagliflozin 10 Mg Tablet PO 10 mg DAILY NEIL Administration Enoxaparin Sodium 30 mg 01/19/25 09:00 01/19/25 09:01 Enoxaparin 30 Mg/0.3 Ml Syringe SUB-Q 30 mg DAILY NEIL Administration Ferrous Sulfate 325 mg 01/17/25 09:00 01/20/25 08:49 Ferrous Sulfate [address] BY MOUTH 325 mg DAILY NEIL Administration Ferrous Sulfate 325 mg 01/18/25 09:00 01/18/25 10:18 Ferrous Sulfate [address] PO Not Given BID NEIL Fluticasone Propionate 2 spray 01/16/25 22:54 Fluticasone Propionate 0.05% Na Spr 16 Gm Btl (*Bkc) NASAL DAILY PRN allergies Folic Acid 0.8 mg 01/17/25 09:00 01/20/25 08:49 Folic Acid 0.4 Mg Tablet PO 0.8 mg QAM NEIL Administration Furosemide 40 mg 01/17/25 09:00 01/19/25 08:58 Furosemide 40 Mg Tablet PO 40 mg DAILY NEIL Administration Glucagon 1 mg 01/16/25 15:05 Glucagon For Inj 1 Mg Vial IM PRN PRN Hypoglycemia Protocol Glucose 15 gm 01/16/25 15:05 01/17/25 08:05 Glucose Oral Gel 15 Gm Of Glucse In 37.5 Gm Tube PO 15 gm PRN PRN Administration Hypoglycemia Protocol Dextrose 1,000 mls @ 100 mls/hr 01/16/25 15:05 Dextrose 5% 1,000 Ml IVPB PRN PRN Hypoglycemia Protocol Insulin Aspart 4 - 8 units 01/16/25 17:00 01/20/25 17:16 Insulin Aspart (*Bkc) 100 Units/Ml SUB-Q Not Given [facility]ID[facility] Protocol Insulin Aspart 3 units 01/17/25 08:00 01/20/25 17:16 Insulin Aspart (*Bkc) 100 Units/Ml SUB-Q Not Given [facility] Insulin Glargine 15 units 01/16/25 22:55 01/20/25 20:42 Insulin Glargine (*Bkc) 100 Units/Ml SUB-Q 15 units HS NEIL Administration Loperamide HCl 2 mg 01/16/25 22:54 Loperamide Hcl 2 Mg Capsule PO QID PRN loose stool Magnesium Oxide 200 mg 01/17/25 09:00 01/20/25 08:50 Magnesium Oxide 400 Mg Tablet PO 200 mg QAM [facility] Administration Midodrine 5 mg 01/17/25 18:00 01/20/25 17:15 Midodrine Hcl 2.5 Mg Tablet PO 5 mg TID [facility] Administration Midodrine 10 mg 01/17/25 18:00 01/20/25 17:17 Midodrine Hcl 10 Mg Tablet PO Not Given TID [facility] Miscellaneous Information 1 each 01/17/25 00:01 01/16/25 23:47 Tacromilus 0.03% Ointment Is Nonformulary; Can Pt Use From Home Or Pharmacy Carries 0.1% O XX 02/16/25 00:00 Not Given CLARIFY [facility] Multi-Ingred Cream/Lotion/Oil/Oint 1 applic 01/17/25 09:00 01/20/25 08:59 Eucerin Cream 120 Gm Jar TOPICAL 1 applic DAILY NEIL Administration Multivitamins/Calcium 1 tablet 01/17/25 09:00 01/20/25 08:49 Therapeutic Multivitamins/Minerals Tab (*Bkc) PO 1 tablet DAILY [facility] Administration Ondansetron HCl 4 mg 01/16/25 15:05 01/20/25 09:44 Ondansetron Inj 4 Mg/2 Ml Vial IV PUSH 4 mg Q4H PRN Administration Nausea Pantoprazole Sodium 40 mg 01/17/25 09:00 01/20/25 17:17 Pantoprazole 40 Mg Tablet PO 40 mg BID [facility] Administration Potassium Chloride 10 meq 01/17/25 08:00 01/20/25 08:49 Potassium Chloride 10 Meq Er Tablet PO 10 meq DAILY@0800 [facility] Administration Pyridoxine HCl 100 mg 01/17/25 09:00 01/20/25 08:48 Pyridoxine Hcl 50 Mg Tablet PO 100 mg QAM [facility] Administration Senna 8.6 mg 01/16/25 22:54 Sennosides 8.6 Mg Tablet PO DAILY PRN constipation Sodium Bicarbonate 650 mg 01/19/25 17:00 01/20/25 17:16 Sodium Bicarbonate Tab 650 Mg Tablet PO 650 mg BID [facility] Administration Sodium Chloride 6 ml 01/21/25 05:00 Sodium Chlor 3% 15 Ml Neb (Respiratory Therapy) INHALATION 01/23/25 05:01 DAILY@0500 [facility] Spironolactone 50 mg 01/19/25 09:00 01/19/25 08:58 Spironolactone 25 Mg Tablet PO 50 mg QAM NEIL Administration Tacrolimus 1 applic 01/17/25 09:00 Tacrolimus 0.03% 30 Gm Ointment TOPICAL BID NEIL Thiamine HCl 100 mg 01/17/25 09:00 01/20/25 08:49 Thiamine Hcl 100 Mg Tablet PO 100 mg QAM NEIL Administration Radiology Results: ITS Impressions Venous Doppler Study 01/16/25 11:37 IMPRESSION: 1: No lower extremity deep venous thrombosis. Knee X-Ray 01/16/25 12:39 Impression: 1: Medial tibial plateau fracture without significant depression. Recommend correlation with CT or MRI. Abdomen/Pelvis CT 01/16/25 12:46 IMPRESSION: Prominence of the common bile duct with a 4 mm stone in the distal common bile duct. Multiple calcifications have been identified within the ivan hepatis on prior studies, without definitive ductal obstruction, present on the current examination secondary to positioning and technique. Remaining findings within the lower chest, abdomen and pelvis are chronic and unchanged from prior study, as detailed above. Knee CT 01/16/25 13:11 IMPRESSION: 1. Curvilinear subarticular sclerosis underlying the significant portion of the medial tibial plateau without evident acute appearing fracture line or associated marrow edema which could represent either chronic osteochondral lesion/bone infarct or old fracture. Could consider further evaluation with MRI if there is high suspicion for acute fracture. Chest/Abdomen/Pelvis CT 01/20/25 09:00 Impression: Large irregular probable effusion and small left pleural effusion with bibasilar atelectatic change. 12 mm groundglass opacity right upper lobe, which could reflect focal edema or atelectatic change. Correlate clinically or focal pneumonitis. Cirrhotic liver with small amount of ascites and diffuse soft tissue anasarca. Cholelithiasis and choledocholithiasis, unchanged. Extensive atherosclerotic disease, as above. Chest X-Ray 01/20/25 16:57 IMPRESSION: 1. Small bilateral pleural effusions with dependent bibasilar atelectasis and/or pneumonia. 2. Cardia megaly with pericardial calcifications. Thoracentesis Ultrasound 01/20/25 17:15 IMPRESSION: 1. Successful ultrasound-guided thoracentesis yielding 1000 mL of yellow fluid. Labs Labs: Laboratory Results - last 24 hr 01/20/25 01/20/25 01/20/25 08:07 11:29 12:23 WBC RBC Hgb Hct MCV MCH MCHC RDW Plt Count MPV Immature Gran % (Auto) Neut % (Auto) Lymph % (Auto) Harmon % (Auto) Eos % (Auto) Baso % (Auto) Lymph # (Auto) Harmon # (Auto) Eos # (Auto) Baso # (Auto) Abs Immat Gran (auto) Absolute Neuts (auto) Absolute Nucleated RBC Nucleated RBC % PT 17.1 H INR 1.3 Sodium Potassium Chloride Carbon Dioxide Anion Gap BUN Creatinine Estim Creat Clear Calc Estimated GFR Glucose POC Capillary Glucose 116 H 188 H Calcium Total Bilirubin AST ALT Alkaline Phosphatase Total Protein Albumin Pleural Fluid Source Pleural Color Pleural Appearance Pleural pH Pleural RBC Pleural Nuc Cells Pleural Neutrophils Pleural Lymphocytes Pleural Monocytes Pleural Macrophages Pleural Mesothelial 01/20/25 01/20/25 01/21/25 16:43 20:22 05:23 WBC 7.9 RBC 2.65 L Hgb 8.3 L Hct 26.6 L MCV 100.4 H MCH 31.3 MCHC 31.2 L RDW 16.4 H Plt Count 232 MPV 10.2 Immature Gran % (Auto) 0.8 H Neut % (Auto) 63.8 Lymph % (Auto) 11.6 L Harmon % (Auto) 11.9 H Eos % (Auto) 11.3 H Baso % (Auto) 0.6 Lymph # (Auto) 0.92 Harmon # (Auto) 0.9 H Eos # (Auto) 0.9 H Baso # (Auto) 0.1 Abs Immat Gran (auto) 0.06 H Absolute Neuts (auto) 5.1 Absolute Nucleated RBC 0.000 Nucleated RBC % 0.0 PT INR Sodium 135 L Potassium 4.5 Chloride Carbon Dioxide Anion Gap BUN Creatinine Estim Creat Clear Calc Estimated GFR Glucose POC Capillary Glucose 225 H Calcium Total Bilirubin AST ALT Alkaline Phosphatase Total Protein Albumin Pleural Fluid Source Pleural fluid Pleural Color Yellow Pleural Appearance Clear Pleural pH > 7.500 H Pleural RBC < 2000 Pleural Nuc Cells 398 Pleural Neutrophils 55 H Pleural Lymphocytes 18 Pleural Monocytes 23 Pleural Macrophages 1 Pleural Mesothelial 3 01/21/25 05:23 WBC RBC Hgb Hct MCV MCH MCHC RDW Plt Count MPV Immature Gran % (Auto) Neut % (Auto) Lymph % (Auto) Harmon % (Auto) Eos % (Auto) Baso % (Auto) Lymph # (Auto) Harmon # (Auto) Eos # (Auto) Baso # (Auto) Abs Immat Gran (auto) Absolute Neuts (auto) Absolute Nucleated RBC Nucleated RBC % PT INR Sodium Potassium 4.4 Chloride 102 Carbon Dioxide 23 Anion Gap 10 BUN 34 H Creatinine 2.44 H Estim Creat Clear Calc 22 Estimated GFR 20 L Glucose 115 H POC Capillary Glucose Calcium 9.1 Total Bilirubin 1.3 AST 26 ALT 15 Alkaline Phosphatase 287 H Total Protein 6.0 L Albumin 3.5 Pleural Fluid Source Pleural Color Pleural Appearance Pleural pH Pleural RBC Pleural Nuc Cells Pleural Neutrophils Pleural Lymphocytes Pleural Monocytes Pleural Macrophages Pleural Mesothelial Quality VTE Prophylaxis VTE prophylaxis: pharmacologic ordered
[2025-01-21 08:10] LABS: Creatine Kinase < 20 U/L (30-135)
[2025-01-21 08:20] LABS: Glucose Point of Care 126 mg/dl (65-105)
[2025-01-21] MEDS: CYANOCOBALAMIN 1,000 MCG TABLET 3000 MCG PO (08:22)
[2025-01-21] MEDS: ASPIRIN 81 MG ENTERIC TABLET PO (08:23)
[2025-01-21] MEDS: POTASSIUM CHLORIDE 10 MEQ ER TABLET PO (08:23)
[2025-01-21] MEDS: MIDODRINE HCL 10 MG TABLET PO ×3 (08:23→16:59)
[2025-01-21] MEDS: PANTOPRAZOLE 40 MG TABLET PO ×2 (08:23→16:58)
[2025-01-21] MEDS: MIDODRINE HCL 2.5 MG TABLET 5 MG PO ×3 (08:23→16:58)
[2025-01-21] MEDS: FOLIC ACID 0.4 MG TABLET 0.8 MG PO (08:23)
[2025-01-21] MEDS: PYRIDOXINE HCL 50 MG TABLET 100 MG PO (08:24)
[2025-01-21] MEDS: SODIUM BICARBONATE TAB 650 MG TABLET PO ×2 (08:24→16:59)
[2025-01-21] MEDS: FERROUS SULFATE 325 MG TABLET DR BY MOUTH (08:24)
[2025-01-21] MEDS: EMPAGLIFLOZIN 10 MG TABLET PO (08:24)
[2025-01-21] MEDS: THIAMINE HCL 100 MG TABLET PO (08:24)
[2025-01-21] MEDS: THERAPEUTIC MULTIVITAMINS/MINERALS TAB (*BKC) 1 TABLET PO (08:24)
[2025-01-21] MEDS: MAGNESIUM OXIDE 400 MG TABLET 200 MG PO (08:24)
[2025-01-21] MEDS: ASCORBIC ACID 500 MG TABLET PO (08:24)
[2025-01-21] MEDS: ATORVASTATIN 10 MG TABLET PO (08:24)
[2025-01-21] MEDS: INSULIN ASPART (*BKC) 100 UNITS/ML SUB-Q ×2 (08:47→16:59)
[2025-01-21] MEDS: EUCERIN CREAM 120 GM JAR 1 APPLIC TOPICAL (09:00)
--- NOTE | 2025-01-21 11:29 | PM.PNNEP ---
Progress Note: A&P Assessment and Plan (1) CATHRYN (acute kidney injury): Code(s): N17.9 - Acute kidney failure, unspecified Status: Acute Assessment and Plan: slow improvement renal function/creatinine at baseline on admission initial rise in creatinine noted on 01/17 suspect multifactorial: diuresis contrast exposure (CT on 01/16) relative hypotension infection(?) other (?) evaluation to date noted repet CT of A/P without obstruction urine electrolytes non-prerenal rare urine eosinophils - not sure of significance mild/moderate proteinuria CPK low diuretics on hold follow trend of repeat labs and UOP (2) Chronic kidney disease, stage 3: Qualifiers: Chronic kidney disease stage 3 subtype: stage 3b (GFR 30-44) Qualified Code(s): N18.32 - Chronic kidney disease, stage 3b Code(s): N18.30 - Chronic kidney disease, stage 3 unspecified Status: Chronic Assessment and Plan: baseline creatinien runs ~ 1.3 - 1.7mg/dl this causes her to fluctuate between CKD stage 3A and stage 3B creatinine has been higher in the due to more aggresive diuresis presumably related to her CHF, previous HTN (not an issue now), DM, vascular disease, liver disease and need for chronic diuretic therapy (3) Acute on chronic diastolic (congestive) heart failure: Code(s): I50.33 - Acute on chronic diastolic (congestive) heart failure Status: Acute Assessment and Plan: as noted by clinical exam and imaging to date elevated BNP CXR showed mild interstitial edema and a small right pleural effusion last Echo (Oct 2024) with normal systolic function, estimated EF 60 65%, grade 2 diastolic dysfunction. known history of liver cirrhosis complicates matters diuretics on hold given #1 follow daily weights and I/Os (4) Fall from ground level: Code(s): W18.30XA - Fall on same level, unspecified, initial encounter Status: Acute Assessment and Plan: no acute trauma or injjury imaging with redemonstrated known right medial tibial plateau fracture (from October of 2024) PT/OT evaluation and treatment as tolerated pain control as needed (5) Chronic anemia: Code(s): D64.9 - Anemia, unspecified Status: Chronic Assessment and Plan: likely related to CKD and liver disease PRBC transfusion per protocol follow trend of H/H (6) Chronic hyponatremia: Code(s): E87.1 - Hypo-osmolality and hyponatremia Status: Chronic Assessment and Plan: stable at this time due to CKD, CHF, and liver disease was on salt tablets not needed at this time (7) Alcoholic cirrhosis of liver: Qualifiers: Ascites presence: without ascites Qualified Code(s): K70.30 - Alcoholic cirrhosis of liver without ascites Code(s): K70.30 - Alcoholic cirrhosis of liver without ascites Status: Chronic Assessment and Plan: known history follows with GI LFTs normal continue supportive therapy (8) Diabetes mellitus: Qualifiers: Diabetes mellitus type: type 2 Diabetes mellitus salvage determiner insulin use: with salvage determiner use Diabetes mellitus complication status: without complication Qualified Code(s): E11.9 - Type 2 diabetes mellitus without complications; Z79.4 - care home (current) use of insulin Code(s): E11.9 - Type 2 diabetes mellitus without complications Status: Chronic Assessment and Plan: follow accu-cheks glycemic control per hospitalist Will continue to follow. Subjective Date/time seen: 01/21/25 11:29 Interval history: Follow-up for acute kidney injury/acute renal failure on chronic kidney disease. Tolerated right thoracentesis yesterday afternoon without any issues or problems; breathing/respiratory status seems stable if not better at the time of my visit; renal function/creatinine slightly improved as well with reasonable urine output despite diuretics being on hold. Exam Narrative: General: elderly but WD/WN female in NAD Heart: normal S1 and S2; no rub Lungs: clear anteriorly; decreased at bases Abdomen: soft, mild distension, positive bowel sounds Extremities: no cyanosis or clubbing; 2+ edema Skin: chronic skin changes noted Objective Data Vital Signs Vital Signs: Vital Signs Temp Pulse Resp BP Pulse Ox O2 Del Method FiO2 01/21/25 11:03 87 01/21/25 08:00 85 01/21/25 07:52 97.2 F L 85 18 115/61 99 01/21/25 04:50 80 18 01/21/25 04:00 90 01/21/25 04:00 97.9 F 83 16 130/67 100 01/21/25 00:40 97.8 F 81 20 126/72 99 01/21/25 00:00 82 01/20/25 22:19 98.1 F 85 20 129/63 100 01/20/25 20:00 85 01/20/25 19:43 87 20 97 Room Air 21 Intake/Output Intake/Output: Intake & Output 01/18/25 01/19/25 01/20/25 01/21/25 23:59 23:59 23:59 23:59 Intake Total 1010 1466 920 748 Output Total 252 972 9960 1150 Balance 860 023 -0251 -245 Meds/Results Medications: Active Medications Generic Name Dose Route Start Last Admin Trade Name Freq PRN Reason Stop Dose Admin Acetaminophen 650 mg 01/16/25 15:05 Acetaminophen 325 Mg Tablet PO Q4H PRN Mild Pain (1-3) or Fever Hydrocodone Bitart/Acetaminophen 1 tab 01/16/25 15:05 01/21/25 15:22 Hydrocodone/Acetaminophen (*Crx) 5-325 Mg Tablet PO 1 tab Q4H PRN Administration Pain Rated 4-6 Albuterol 2.5 mg 01/16/25 22:54 01/18/25 10:57 Albuterol Sulfate Neb 2.5 Mg/3 Ml Inh INHALATION 2.5 mg Q8H PRN Administration shortness of breath or wheezing Alendronate Sodium 70 mg 01/21/25 07:00 01/21/25 06:48 Alendronate Sodium 70 Mg Tablet PO 70 mg Tu@0700 [facility] Administration Ascorbic Acid 500 mg 01/17/25 09:00 01/21/25 08:24 Ascorbic Acid 500 Mg Tablet PO 500 mg DAILY NEIL Administration Aspirin 81 mg 01/17/25 09:00 01/21/25 08:23 Aspirin 81 Mg Enteric Tablet PO 81 mg DAILY NEIL Administration Atorvastatin Calcium 10 mg 01/17/25 09:00 01/21/25 08:24 Atorvastatin 10 Mg Tablet PO 10 mg QAM [facility] Administration Calcitriol 0.25 mcg 01/17/25 09:00 01/20/25 08:59 Calcitriol 0.25 Mcg Capsule PO 0.25 mcg SuMoWeFr@0900 [facility] Administration Carvedilol 6.25 mg 01/16/25 22:55 01/17/25 10:11 Carvedilol 6.25 Mg Tablet PO Not Given Q12HR [facility] Cyanocobalamin 3,000 mcg 01/17/25 09:00 01/21/25 08:22 Cyanocobalamin 1,000 Mcg Tablet PO 3,000 mcg QAM [facility] Administration Dextrose 12.5 gm 01/16/25 15:05 Dextrose 50% 25 Gm/50 Ml Syringe IV PUSH PRN PRN Hypoglycemia Protocol Empagliflozin 10 mg 01/17/25 09:00 01/21/25 08:24 Empagliflozin 10 Mg Tablet PO 10 mg DAILY NEIL Administration Enoxaparin Sodium 30 mg 01/19/25 09:00 01/19/25 09:01 Enoxaparin 30 Mg/0.3 Ml Syringe SUB-Q 30 mg DAILY NEIL Administration Ferrous Sulfate 325 mg 01/17/25 09:00 01/21/25 08:24 Ferrous Sulfate [address] BY MOUTH 325 mg DAILY NEIL Administration Ferrous Sulfate 325 mg 01/18/25 09:00 01/18/25 10:18 Ferrous Sulfate [address] PO Not Given BID NEIL Fluticasone Propionate 2 spray 01/16/25 22:54 Fluticasone Propionate 0.05% Na Spr 16 Gm Btl (*Bkc) NASAL DAILY PRN allergies Folic Acid 0.8 mg 01/17/25 09:00 01/21/25 08:23 Folic Acid 0.4 Mg Tablet PO 0.8 mg QAM NEIL Administration Furosemide 40 mg 01/17/25 09:00 01/19/25 08:58 Furosemide 40 Mg Tablet PO 40 mg DAILY NEIL Administration Glucagon 1 mg 01/16/25 15:05 Glucagon For Inj 1 Mg Vial IM PRN PRN Hypoglycemia Protocol Glucose 15 gm 01/16/25 15:05 01/17/25 08:05 Glucose Oral Gel 15 Gm Of Glucse In 37.5 Gm Tube PO 15 gm PRN PRN Administration Hypoglycemia Protocol Dextrose 1,000 mls @ 100 mls/hr 01/16/25 15:05 Dextrose 5% 1,000 Ml IVPB PRN PRN Hypoglycemia Protocol Insulin Aspart 4 - 8 units 01/16/25 17:00 01/21/25 16:57 Insulin Aspart (*Bkc) 100 Units/Ml SUB-Q Not Given TIDWM NEIL Protocol Insulin Aspart 3 units 01/17/25 08:00 01/21/25 16:59 Insulin Aspart (*Bkc) 100 Units/Ml SUB-Q 3 units TIDWM NEIL Administration Insulin Glargine 15 units 01/16/25 22:55 01/20/25 20:42 Insulin Glargine (*Bkc) 100 Units/Ml SUB-Q 15 units HS NEIL Administration Loperamide HCl 2 mg 01/16/25 22:54 Loperamide Hcl 2 Mg Capsule PO QID PRN loose stool Magnesium Oxide 200 mg 01/17/25 09:00 01/21/25 08:24 Magnesium Oxide 400 Mg Tablet PO 200 mg QAM [facility] Administration Midodrine 5 mg 01/17/25 18:00 01/21/25 16:58 Midodrine Hcl 2.5 Mg Tablet PO 5 mg TID [facility] Administration Midodrine 10 mg 01/17/25 18:00 01/21/25 16:59 Midodrine Hcl 10 Mg Tablet PO 10 mg TID [facility] Administration Miscellaneous Information 1 each 01/17/25 00:01 01/16/25 23:47 Tacromilus 0.03% Ointment Is Nonformulary; Can Pt Use From Home Or Pharmacy Carries 0.1% O XX 02/16/25 00:00 Not Given CLARIFY [facility] Multi-Ingred Cream/Lotion/Oil/Oint 1 applic 01/17/25 09:00 01/21/25 09:00 Eucerin Cream 120 Gm Jar TOPICAL 1 applic DAILY [facility] Administration Multivitamins/Calcium 1 tablet 01/17/25 09:00 01/21/25 08:24 Therapeutic Multivitamins/Minerals Tab (*Bkc) PO 1 tablet DAILY [facility] Administration Ondansetron HCl 4 mg 01/16/25 15:05 01/20/25 09:44 Ondansetron Inj 4 Mg/2 Ml Vial IV PUSH 4 mg Q4H PRN Administration Nausea Pantoprazole Sodium 40 mg 01/17/25 09:00 01/21/25 16:58 Pantoprazole 40 Mg Tablet PO 40 mg BID [facility] Administration Polyethylene Glycol 17 gm 01/21/25 15:38 Polyethylene Glycol 3350 17 Gm Powd.Pack PO QAM PRN Constipation Potassium Chloride 10 meq 01/17/25 08:00 01/21/25 08:23 Potassium Chloride 10 Meq Er Tablet PO 10 meq DAILY@0800 [facility] Administration Pyridoxine HCl 100 mg 01/17/25 09:00 01/21/25 08:24 Pyridoxine Hcl 50 Mg Tablet PO 100 mg QAM [facility] Administration Senna 8.6 mg 01/16/25 22:54 Sennosides 8.6 Mg Tablet PO DAILY PRN constipation Senna/Docusate Sodium 1 tab 01/21/25 15:39 Senna/Docusate Sodium Tablet PO HS PRN Constipation Sodium Bicarbonate 650 mg 01/19/25 17:00 01/21/25 16:59 Sodium Bicarbonate Tab 650 Mg Tablet PO 650 mg BID NEIL Administration Sodium Chloride 6 ml 01/21/25 05:00 Sodium Chlor 3% 15 Ml Neb (Respiratory Therapy) INHALATION 01/23/25 05:01 DAILY@0500 NEIL Spironolactone 50 mg 01/19/25 09:00 01/19/25 08:58 Spironolactone 25 Mg Tablet PO 50 mg QAM NEIL Administration Tacrolimus 1 applic 01/17/25 09:00 Tacrolimus 0.03% 30 Gm Ointment TOPICAL BID [facility] Thiamine HCl 100 mg 01/17/25 09:00 01/21/25 08:24 Thiamine Hcl 100 Mg Tablet PO 100 mg QAM NEIL Administration Radiology Results: ITS Impressions Venous Doppler Study 01/16/25 11:37 IMPRESSION: 1: No lower extremity deep venous thrombosis. Knee X-Ray 01/16/25 12:39 Impression: 1: Medial tibial plateau fracture without significant depression. Recommend correlation with CT or MRI. Abdomen/Pelvis CT 01/16/25 12:46 IMPRESSION: Prominence of the common bile duct with a 4 mm stone in the distal common bile duct. Multiple calcifications have been identified within the ivan hepatis on prior studies, without definitive ductal obstruction, present on the current examination secondary to positioning and technique. Remaining findings within the lower chest, abdomen and pelvis are chronic and unchanged from prior study, as detailed above. Knee CT 01/16/25 13:11 IMPRESSION: 1. Curvilinear subarticular sclerosis underlying the significant portion of the medial tibial plateau without evident acute appearing fracture line or associated marrow edema which could represent either chronic osteochondral lesion/bone infarct or old fracture. Could consider further evaluation with MRI if there is high suspicion for acute fracture. Chest/Abdomen/Pelvis CT 01/20/25 09:00 Impression: Large irregular probable effusion and small left pleural effusion with bibasilar atelectatic change. 12 mm groundglass opacity right upper lobe, which could reflect focal edema or atelectatic change. Correlate clinically or focal pneumonitis. Cirrhotic liver with small amount of ascites and diffuse soft tissue anasarca. Cholelithiasis and choledocholithiasis, unchanged. Extensive atherosclerotic disease, as above. Chest X-Ray 01/20/25 16:57 IMPRESSION: 1. Small bilateral pleural effusions with dependent bibasilar atelectasis and/or pneumonia. 2. Cardia megaly with pericardial calcifications. Thoracentesis Ultrasound 01/20/25 17:15 IMPRESSION: 1. Successful ultrasound-guided thoracentesis yielding 1000 mL of yellow fluid. Abdomen X-Ray 01/21/25 15:21 IMPRESSION: 1. Nonspecific nonobstructive bowel gas pattern. Labs Labs: Laboratory Tests 01/21/25 05:23 01/21/25 05:23 Calcium 9.1 Total Bilirubin 1.3 AST 26 ALT 15 Alkaline Phosphatase 287 H Total Creatine Kinase < 20 Total Protein 6.0 L Albumin 3.5 Microbiology 01/20/25 16:43 Pleural Fluid Anaerobic Culture - Preliminary 01/20/25 16:43 Pleural Fluid Gram Stain - Final
[2025-01-21 11:42] LABS: Glucose Point of Care 174 mg/dl (65-105)
--- NOTE | 2025-01-21 11:59 | PCOTNOTE ---
Patient refused to participate at this time. Patient verbalized she just returned to bed, worn out, and already did PT this morning.
--- NOTE | 2025-01-21 12:52 | PCOTNOTE ---
Patient refused to participate this P.M. Patient states she is still having the increased pressure on her stomach and is easily short of breath. Patient asked therapiust to come back tomorrow morning for OT treatment.
[2025-01-21 14:03] LABS: Total Protein Urine Random 11 mg/dL; Total Protein Urine Random 12 mg/dL
[2025-01-21 14:08] LABS: Sodium Urine Random 44 meq/L
[2025-01-21 14:17] LABS: Eosinophil Urine Rare % (None Seen); Urine Eos QC 2nd Tech Confirmed
[2025-01-21 14:23] LABS: Creatinine Urine 45.1 mg/dL; Ur Ttl Prot Creatinine Ratio 0.24 mg/mg (0-0.20)
[2025-01-21 14:40] LABS: Creatinine Urine 46.1 mg/dL; Urea Random Urine 355 MG/DL
[2025-01-21] MEDS: HYDROcodone/acetaminophen (*CRX) 5-325 MG TABLET 1 TAB PO (15:22)
[2025-01-21 16:34] LABS: Glucose Point of Care 176 mg/dl (65-105)
[2025-01-21 20:08] LABS: Glucose Point of Care 215 mg/dl (65-105)
[2025-01-21] MEDS: INSULIN GLARGINE (*BKC) 100 UNITS/ML 15 UNITS SUB-Q (20:10)
[2025-01-22] VITALS (14 sets, daily range): BP systolic 118–141; BP diastolic 54–71; PULSE 80–91; RESP 12–24; TEMP 36.4–36.5; O2SAT 98–100
[2025-01-22] MEDS: SODIUM CHLOR 3% 15 ML NEB (RESPIRATORY THERAPY) 6 ML INHALATION (04:50)
[2025-01-22] MEDS: ALBUTEROL SULFATE NEB 2.5 MG/3 ML INH INHALATION ×2 (05:07→19:41)
[2025-01-22 06:27] LABS: Basophils Absolute Auto 0.1 K/mm3 (0.0-0.1); Basophils Percent Auto 0.8 % (0.2-1.2); Eosinophils Percent Auto 12.6 % (0-4.4); Hematocrit 27.2 % (37.0-47.0); Hemoglobin 8.4 g/dL (12.0-15.0); Immature Granulocyte Absolute 0.08 K/mm3 (0.00-0.031); Lymphocytes Absolute Auto 0.97 K/mm3 (0.9-3.2); Lymphocytes Percent Auto 12.6 % (18.3-44.2); Mean Corpuscular HGB Conc 30.9 g/dl (32-36); Mean Corpuscular Hemoglobin 31.7 pg (26-34); Mean Corpuscular Volume 102.6 fl (80-100); Mean Platelet Volume 10.3 fl (7.4-10.4); Monocytes Percent Auto 12.4 % (2.6-8.5); Neutrophils Absolute Auto 4.7 K/mm3 (1.3-6.7); Neutrophils Percent Auto 60.6 % (45.5-73.1); Platelet Count Result 238 k/mm3 (150-375); Red Blood Count 2.65 M/mm3 (4.2-5.4); Red Cell Distribution Width 16.6 % (11.5-14.5); White Blood Count 7.7 K/mm3 (4.5-10.0)
[2025-01-22 06:36] LABS: Alanine Aminotransferase 15 U/L (6-35); Albumin Level 3.5 g/dL (3.5-5.1); Alkaline Phosphatase 329 U/L (38-126); Anion Gap 10 mmol/L (4-12); Aspartate Amino Transferase 25 U/L (14-36); Bilirubin,Total 1.3 mg/dL (0.2-1.3); Blood Urea Nitrogen 31 mg/dL (7-17); Calcium 8.8 mg/dL (8.4-10.2); Carbon Dioxide 24 mmol/L (22-30); Chloride 102 mmol/L (98-107); Estimated CRCL calculation 24 ml/min; Estimated Glomerular Filt Rate 22; Glucose 74 mg/dL (65-110); Potassium 4.3 mmol/L (3.4-5.0); Sodium 136 mmol/L (137-145)
--- NOTE | 2025-01-22 07:12 | P.PNIM_ITS ---
Progress Note: A&P Assessment and Plan (1) Acute on chronic diastolic (congestive) heart failure: Code(s): I50.33 - Acute on chronic diastolic (congestive) heart failure Status: Acute Assessment and Plan: * BNP 06302 * CXR shown mild interstitial edema and a small right pleural effusion * Last echo from 10/31/24 shown normal LV systolic function with an estimated EF of 60-65%, grade 2 diastolic dysfunction * Nephrology consulted for diuresis, recommend restarting on Lasix (2) Gallstones: Code(s): K80.20 - Calculus of gallbladder without cholecystitis without obstruction Status: Acute Assessment and Plan: * CT of the abdomen and pelvis showed prominence of common bile duct with a 4 mm stone in the distal common bile duct * GI following and recommends surgical consult * If patient to became symptomatic she would need to be transfer to tertiary care facility where she can be managed by a team of liver specialists and hepatobiliary surgeons who treat patients with this degree of cirrhosis. On assessment patient has no signs or symptoms of choledocholithiasis or cholecystitis * Meld score 20 due to her alcohol liver cirrhosis (3) Fall from ground level: Code(s): W18.30XA - Fall on same level, unspecified, initial encounter Status: Acute Assessment and Plan: * Trauma workup negative for acute fracture * Some imaging redemonstrated a right medial tibial plateau fracture that dated back to October of this year, She was seen by Orthopedic surgery at [facility]. * PT and OT ordered * Continue pain control * Continue fall precautions * Per patient she is wheelchair-bound and can do pivot transfers (4) Pleural effusion: Code(s): J90 - Pleural effusion, not elsewhere classified Status: Acute Assessment and Plan: Status post thoracentesis yielding 1000 mL of yellow fluid. 01/20 Patient states breathing has improved (5) Hypotension: Qualifiers: Hypotension type: unspecified hypotension type Qualified Code(s): I95.9 - Hypotension, unspecified Code(s): I95.9 - Hypotension, unspecified Status: Chronic Assessment and Plan: Stable * Continue Midodrine (6) Chronic kidney disease, stage 3: Qualifiers: Chronic kidney disease stage 3 subtype: stage 3b (GFR 30-44) Qualified Code(s): N18.32 - Chronic kidney disease, stage 3b Code(s): N18.30 - Chronic kidney disease, stage 3 unspecified Status: Chronic Assessment and Plan: Worsening acute on chronic * Nephrology consulted for further assistance with diuresis efforts (7) Chronic hyponatremia: Code(s): E87.1 - Hypo-osmolality and hyponatremia Status: Chronic Assessment and Plan: Improving * Continue to monitor (8) Chronic anemia: Code(s): D64.9 - Anemia, unspecified Status: Chronic Assessment and Plan: Iron deficiency anemia Likely secondary to her cirrhosis * Hemoglobin 7.6 * Transfuse if less than 7 * given ferrous sulfate * Iron replacement (9) Insulin dependent type 2 diabetes mellitus: Code(s): E11.9 - Type 2 diabetes mellitus without complications; Z79.4 - [facility] (current) use of insulin Status: Chronic Assessment and Plan: Hgb A1C 5.1 on 08/26/2025 * Accu checks AC/HS * High-dose SSI ordered * Continue Latia Johnson, * hypoglycemic protocol in place * Diabetic diet ordered (10) Pressure ulcer of sacral region: Qualifiers: Pressure injury stage: unspecified pressure injury stage Qualified Code(s): L89.159 - Pressure ulcer of sacral region, unspecified stage Code(s): L89.159 - Pressure ulcer of sacral region, unspecified stage Status: Acute Assessment and Plan: * Wound nurse consulted * Continue dressing changes per Wound nurse orders (11) Pressure ulcer, heel, right, unstageable: Code(s): L89.610 - Pressure ulcer of right heel, unstageable Status: Acute Assessment and Plan: * Wound nurse consulted * Continued dressing changes per Wound nursing orders (12) Alcoholic cirrhosis of liver: Qualifiers: Ascites presence: without ascites Qualified Code(s): K70.30 - Alcoholic cirrhosis of liver without ascites Code(s): K70.30 - Alcoholic cirrhosis of liver without ascites Status: Chronic Assessment and Plan: * Cirrhotic liver with small amount of ascites and diffuse soft tissue anasarca Time Spent With Patient Time: 35 Subjective Date/time seen: 01/22/25 07:12 Interval history: 69-year-old female with a significant past medical history of cirrhosis, alcohol abuse, diastolic dysfunction, diabetes, hyponatremia, anemia, chronic venous insufficiency with lipodermatosclerosis who presented to the hospital after a ground level fall and hypotension. 01/22/2025 Patient is sitting comfortably in bed upon examination. She denies any chest pain, shortness of breath, n/v at this time. Does endorse generalized abdominal discomfort and states she feels volume overloaded. BUN/Cr improving, 31/2.22 down from 34/2.44 yesterday. BNP [address]. Spoke with Dr[address] Ann who agreed that restarting diuretics would be best course as of now. Review of Systems Review of Systems: All systems reviewed & are unremarkable except as noted in HPI and below Exam Narrative: General: In no acute distress, well nourished Cardiac: Normal S1 and S2. No murmur, gallops or friction rubs, peripheral pulses intact. Respiratory: Lungs mild expiratory wheezing bilaterally, no adventitious lung sounds, currently on room air, tachypnea Gastrointestinal:distended and taunt, non-tender, normoactive bowel sounds. Patient having bowel movements : voiding without difficulty. Extremities: moves all extremities, decreased ROM of LLE/knee, Skin: bilateral jackson erythema, 4+ nonpitting edema Neuro: Alert and oriented x4 Anasarca Const: General: comfortable and no acute distress Other: , female, chronically ill-appearing, nontoxic appearance, obese body habitus. HENMT: Face/Nose/Sinus: Normal nares present Mouth: Yes moist mucous membranes Eyes: General: appearance normal, both eyes and all related structures Sclera: sclerae normal Pupils: Equal, round and reactive pupils present EOM: EOMs intact bilaterally Resp: Effort & Inspection: normal respiratory effort Auscultation: clear to auscultation bilaterally Cardio: Rate: regular rate Rhythm: regular rhythm Other: S1-S2 present without murmur, rub, ectopy GI: Other: Abdomen rounded and tight, nontender. Normoactive bowel sounds in all quadrants. Skin: General skin exam: normal color, no rashes or lesions noted and wounds noted Wounds: wounds noted Other: Pressure wound to buttock region, no active signs of infection. Neuro: Cranial nerves: Yes Equal, round and reactive pupils present Speech: normal speech Motor exam (neuro): 5/5 motor strength present throughout Sensory Exam: normal sensation Other: A&O x4 Extrem: Other: 2+ pitting edema from thighs down bilate rally, symmetric. Jt wraps in place to bilateral calves. Pressure ulcer to right heel, wound bed pink/red with no significant drainage or signs of infection. Large ulceration to sacrum, possible tunneling. Psych: Mental Status: mental status grossly normal Affect: normal affect Other: Good insight and judgment, very pleasant Objective Data Vital Signs Vital Signs: Vital Signs - 24 hr 01/21/25 07:52 01/21/25 08:00 01/21/25 12:03 Temperature 97.2 F L Pulse Rate 85 85 87 Respiratory Rate 18 Blood Pressure 115/61 Pulse Oximetry 99 Oxygen Delivery Fraction of Inspired Oxygen 01/21/25 14:00 01/21/25 16:00 01/21/25 19:45 Temperature 97.2 F L 98.5 F Pulse Rate 87 83 84 Respiratory Rate 16 24 H Blood Pressure 121/62 126/64 Pulse Oximetry 98 98 Oxygen Delivery Fraction of Inspired Oxygen 01/21/25 20:00 01/21/25 20:00 01/22/25 00:00 Temperature Pulse Rate 84 85 91 Respiratory Rate 24 H Blood Pressure Pulse Oximetry 98 Oxygen Delivery Room Air Fraction of Inspired Oxygen 21 01/22/25 04:00 01/22/25 04:00 01/22/25 04:50 Temperature 97.6 F Pulse Rate 82 83 Respiratory Rate 22 H Blood Pressure 118/54 L Pulse Oximetry 98 98 Oxygen Delivery Room Air Fraction of Inspired Oxygen 21 01/22/25 04:50 01/22/25 05:10 01/22/25 05:20 Temperature Pulse Rate 80 82 86 Respiratory Rate 18 24 H 20 Blood Pressure Pulse Oximetry Oxygen Delivery Fraction of Inspired Oxygen Intake/Output Intake/Output: Intake & Output 01/19/25 01/20/25 01/21/25 01/22/25 23:59 23:59 23:59 23:59 Intake Total 1466 920 868 300 Output Total 525 1950 1150 550 Balance 895 -3227 -282 -216 Meds/Results Medications: Active Medications Generic Name Dose Route Start Last Admin Trade Name Freq PRN Reason Stop Dose Admin Acetaminophen 650 mg 01/16/25 15:05 Acetaminophen 325 Mg Tablet PO Q4H PRN Mild Pain (1-3) or Fever Hydrocodone Bitart/Acetaminophen 1 tab 01/16/25 15:05 01/21/25 15:22 Hydrocodone/Acetaminophen (*Crx) 5-325 Mg Tablet PO 1 tab Q4H PRN Administration Pain Rated 4-6 Albuterol 2.5 mg 01/16/25 22:54 01/22/25 05:07 Albuterol Sulfate Neb 2.5 Mg/3 Ml Inh INHALATION 2.5 mg Q8H PRN Administration shortness of breath or wheezing Alendronate Sodium 70 mg 01/21/25 07:00 01/21/25 06:48 Alendronate Sodium 70 Mg Tablet PO 70 mg Tu@0700 NEIL Administration Ascorbic Acid 500 mg 01/17/25 09:00 01/21/25 08:24 Ascorbic Acid 500 Mg Tablet PO 500 mg DAILY NEIL Administration Aspirin 81 mg 01/17/25 09:00 01/21/25 08:23 Aspirin 81 Mg Enteric Tablet PO 81 mg DAILY NEIL Administration Atorvastatin Calcium 10 mg 01/17/25 09:00 01/21/25 08:24 Atorvastatin 10 Mg Tablet PO 10 mg QAM [facility] Administration Calcitriol 0.25 mcg 01/17/25 09:00 01/20/25 08:59 Calcitriol 0.25 Mcg Capsule PO 0.25 mcg [id number] NEIL Administration Carvedilol 6.25 mg 01/16/25 22:55 01/17/25 10:11 Carvedilol 6.25 Mg Tablet PO Not Given Q12HR [facility] Cyanocobalamin 3,000 mcg 01/17/25 09:00 01/21/25 08:22 Cyanocobalamin 1,000 Mcg Tablet PO 3,000 mcg QAM [facility] Administration Dextrose 12.5 gm 01/16/25 15:05 Dextrose 50% 25 Gm/50 Ml Syringe IV PUSH PRN PRN Hypoglycemia Protocol Empagliflozin 10 mg 01/17/25 09:00 01/21/25 08:24 Empagliflozin 10 Mg Tablet PO 10 mg DAILY [facility] Administration Enoxaparin Sodium 30 mg 01/19/25 09:00 01/19/25 09:01 Enoxaparin 30 Mg/0.3 Ml Syringe SUB-Q 30 mg DAILY [facility] Administration Ferrous Sulfate 325 mg 01/17/25 09:00 01/21/25 08:24 Ferrous Sulfate [address] BY MOUTH 325 mg DAILY [facility] Administration Ferrous Sulfate 325 mg 01/18/25 09:00 01/18/25 10:18 Ferrous Sulfate [address] PO Not Given BID [facility] Fluticasone Propionate 2 spray 01/16/25 22:54 Fluticasone Propionate 0.05% Na Spr 16 Gm Btl (*Bkc) NASAL DAILY PRN allergies Folic Acid 0.8 mg 01/17/25 09:00 01/21/25 08:23 Folic Acid 0.4 Mg Tablet PO 0.8 mg QAM NEIL Administration Furosemide 40 mg 01/17/25 09:00 01/19/25 08:58 Furosemide 40 Mg Tablet PO 40 mg DAILY NEIL Administration Glucagon 1 mg 01/16/25 15:05 Glucagon For Inj 1 Mg Vial IM PRN PRN Hypoglycemia Protocol Glucose 15 gm 01/16/25 15:05 01/17/25 08:05 Glucose Oral Gel 15 Gm Of Glucse In 37.5 Gm Tube PO 15 gm PRN PRN Administration Hypoglycemia Protocol Dextrose 1,000 mls @ 100 mls/hr 01/16/25 15:05 Dextrose 5% 1,000 Ml IVPB PRN PRN Hypoglycemia Protocol Insulin Aspart 4 - 8 units 01/16/25 17:00 01/21/25 16:57 Insulin Aspart (*Bkc) 100 Units/Ml SUB-Q Not Given TIDWM [facility] Protocol Insulin Aspart 3 units 01/17/25 08:00 01/21/25 16:59 Insulin Aspart (*Bkc) 100 Units/Ml SUB-Q 3 units TIDWM [facility] Administration Insulin Glargine 15 units 01/16/25 22:55 01/21/25 20:10 Insulin Glargine (*Bkc) 100 Units/Ml SUB-Q 15 units HS NEIL Administration Loperamide HCl 2 mg 01/16/25 22:54 Loperamide Hcl 2 Mg Capsule PO QID PRN loose stool Magnesium Oxide 200 mg 01/17/25 09:00 01/21/25 08:24 Magnesium Oxide 400 Mg Tablet PO 200 mg QAM [facility] Administration Midodrine 5 mg 01/17/25 18:00 01/21/25 16:58 Midodrine Hcl 2.5 Mg Tablet PO 5 mg TID [facility] Administration Midodrine 10 mg 01/17/25 18:00 01/21/25 16:59 Midodrine Hcl 10 Mg Tablet PO 10 mg TID [facility] Administration Miscellaneous Information 1 each 01/17/25 00:01 01/16/25 23:47 Tacromilus 0.03% Ointment Is Nonformulary; Can Pt Use From Home Or Pharmacy Carries 0.1% O XX 02/16/25 00:00 Not Given CLARIFY [facility] Multi-Ingred Cream/Lotion/Oil/Oint 1 applic 01/17/25 09:00 01/21/25 09:00 Eucerin Cream 120 Gm Jar TOPICAL 1 applic DAILY NEIL Administration Multivitamins/Calcium 1 tablet 01/17/25 09:00 01/21/25 08:24 Therapeutic Multivitamins/Minerals Tab (*Bkc) PO 1 tablet DAILY NEIL Administration Ondansetron HCl 4 mg 01/16/25 15:05 01/20/25 09:44 Ondansetron Inj 4 Mg/2 Ml Vial IV PUSH 4 mg Q4H PRN Administration Nausea Pantoprazole Sodium 40 mg 01/17/25 09:00 01/21/25 16:58 Pantoprazole 40 Mg Tablet PO 40 mg BID NEIL Administration Polyethylene Glycol 17 gm 01/21/25 15:38 Polyethylene Glycol 3350 17 Gm Powd.Pack PO QAM PRN Constipation Potassium Chloride 10 meq 01/17/25 08:00 01/21/25 08:23 Potassium Chloride 10 Meq Er Tablet PO 10 meq DAILY@0800 [facility] Administration Pyridoxine HCl 100 mg 01/17/25 09:00 01/21/25 08:24 Pyridoxine Hcl 50 Mg Tablet PO 100 mg QAM [facility] Administration Senna 8.6 mg 01/16/25 22:54 Sennosides 8.6 Mg Tablet PO DAILY PRN constipation Senna/Docusate Sodium 1 tab 01/21/25 15:39 Senna/Docusate Sodium Tablet PO HS PRN Constipation Sodium Bicarbonate 650 mg 01/19/25 17:00 01/21/25 16:59 Sodium Bicarbonate Tab 650 Mg Tablet PO 650 mg BID [facility] Administration Sodium Chloride 6 ml 01/21/25 05:00 01/22/25 04:50 Sodium Chlor 3% 15 Ml Neb (Respiratory Therapy) INHALATION 01/23/25 05:01 6 ml DAILY@0500 [facility] Administration Spironolactone 50 mg 01/19/25 09:00 01/19/25 08:58 Spironolactone 25 Mg Tablet PO 50 mg QAM [facility] Administration Tacrolimus 1 applic 01/17/25 09:00 Tacrolimus 0.03% 30 Gm Ointment TOPICAL BID [facility] Thiamine HCl 100 mg 01/17/25 09:00 01/21/25 08:24 Thiamine Hcl 100 Mg Tablet PO 100 mg QAM [facility] Administration Radiology Results: ITS Impressions Venous Doppler Study 01/16/25 11:37 IMPRESSION: 1: No lower extremity deep venous thrombosis. Knee X-Ray 01/16/25 12:39 Impression: 1: Medial tibial plateau fracture without significant depression. Recommend correlation with CT or MRI. Abdomen/Pelvis CT 01/16/25 12:46 IMPRESSION: Prominence of the common bile duct with a 4 mm stone in the distal common bile duct. Multiple calcifications have been identified within the ivan hepatis on prior studies, without definitive ductal obstruction, present on the current examination secondary to positioning and technique. Remaining findings within the lower chest, abdomen and pelvis are chronic and unchanged from prior study, as detailed above. Knee CT 01/16/25 13:11 IMPRESSION: 1. Curvilinear subarticular sclerosis underlying the significant portion of the medial tibial plateau without evident acute appearing fracture line or associated marrow edema which could represent either chronic osteochondral lesion/bone infarct or old fracture. Could consider further evaluation with MRI if there is high suspicion for acute fracture. Chest/Abdomen/Pelvis CT 01/20/25 09:00 Impression: Large irregular probable effusion and small left pleural effusion with bibasilar atelectatic change. 12 mm groundglass opacity right upper lobe, which could reflect focal edema or atelectatic change. Correlate clinically or focal pneumonitis. Cirrhotic liver with small amount of ascites and diffuse soft tissue anasarca. Cholelithiasis and choledocholithiasis, unchanged. Extensive atherosclerotic disease, as above. Chest X-Ray 01/20/25 16:57 IMPRESSION: 1. Small bilateral pleural effusions with dependent bibasilar atelectasis and/or pneumonia. 2. Cardia megaly with pericardial calcifications. Thoracentesis Ultrasound 01/20/25 17:15 IMPRESSION: 1. Successful ultrasound-guided thoracentesis yielding 1000 mL of yellow fluid. Abdomen X-Ray 01/21/25 15:21 IMPRESSION: 1. Nonspecific nonobstructive bowel gas pattern. Labs Labs: Laboratory Results - last 24 hr 01/21/25 01/21/25 01/21/25 05:18 08:14 11:38 WBC RBC Hgb Hct MCV MCH MCHC RDW Plt Count MPV Immature Gran % (Auto) Neut % (Auto) Lymph % (Auto) [place] % (Auto) Eos % (Auto) Baso % (Auto) Lymph # (Auto) [place] # (Auto) Eos # (Auto) Baso # (Auto) Abs Immat Gran (auto) Absolute Neuts (auto) Absolute Nucleated RBC Nucleated RBC % Sodium Potassium Chloride Carbon Dioxide Anion Gap BUN Creatinine Estim Creat Clear Calc Estimated GFR Glucose POC Capillary Glucose 126 H 174 H Calcium Total Bilirubin AST ALT Alkaline Phosphatase Total Creatine Kinase < 20 L Total Protein Albumin Urine Eosinophils U Random Total Protein Ur Random Sodium Ur Random Urea Urine Creatinine Protein/Creat Ratio 2 01/21/25 01/21/25 01/21/25 13:46 13:46 13:46 WBC RBC Hgb Hct MCV MCH MCHC RDW Plt Count MPV Immature Gran % (Auto) Neut % (Auto) Lymph % (Auto) [place] % (Auto) Eos % (Auto) Baso % (Auto) Lymph # (Auto) [place] # (Auto) Eos # (Auto) Baso # (Auto) Abs Immat Gran (auto) Absolute Neuts (auto) Absolute Nucleated RBC Nucleated RBC % Sodium Potassium Chloride Carbon Dioxide Anion Gap BUN Creatinine Estim Creat Clear Calc Estimated GFR Glucose POC Capillary Glucose Calcium Total Bilirubin AST ALT Alkaline Phosphatase Total Creatine Kinase Total Protein Albumin Urine Eosinophils Rare U Random Total Protein 11 12 Ur Random Sodium 44 Ur Random Urea 355 Urine Creatinine 45.1 46.1 Protein/Creat Ratio 2 0.24 H 01/21/25 01/21/25 01/22/25 16:31 19:47 05:12 WBC 7.7 RBC 2.65 L Hgb 8.4 L Hct 27.2 L MCV 102.6 H MCH 31.7 MCHC 30.9 L RDW 16.6 H Plt Count 238 MPV 10.3 Immature Gran % (Auto) 1.0 H Neut % (Auto) 60.6 Lymph % (Auto) 12.[address] [place] % (Auto) 12.4 H Eos % (Auto) 12.6 H Baso % (Auto) 0.8 Lymph # (Auto) 0.97 [place] # (Auto) 1.0 H Eos # (Auto) 1.0 H Baso # (Auto) 0.1 Abs Immat Gran (auto) 0.08 H Absolute Neuts (auto) 4.7 Absolute Nucleated RBC 0.000 Nucleated RBC % 0.0 Sodium 136 L Potassium 4.3 Chloride 102 Carbon Dioxide 24 Anion Gap 10 BUN 31 H Creatinine 2.22 H Estim Creat Clear Calc 24 Estimated GFR 22 L Glucose 74 POC Capillary Glucose 176 H 215 H Calcium 8.8 Total Bilirubin 1.3 AST 25 ALT 15 Alkaline Phosphatase 329 H Total Creatine Kinase Total Protein 6.0 L Albumin 3.5 Urine Eosinophils U Random Total Protein Ur Random Sodium Ur Random Urea Urine Creatinine Protein/Creat Ratio 2 Quality VTE Prophylaxis VTE prophylaxis: pharmacologic ordered
[2025-01-22 07:47] LABS: NT Pro B Type Natriuretic Pept 14800 pg/mL (19.9-100)
[2025-01-22] MEDS: EMPAGLIFLOZIN 10 MG TABLET PO (08:21)
[2025-01-22] MEDS: THIAMINE HCL 100 MG TABLET PO (08:21)
[2025-01-22] MEDS: ASPIRIN 81 MG ENTERIC TABLET PO (08:21)
[2025-01-22] MEDS: MIDODRINE HCL 2.5 MG TABLET 5 MG PO ×3 (08:21→17:14)
[2025-01-22] MEDS: PYRIDOXINE HCL 50 MG TABLET 100 MG PO (08:21)
[2025-01-22] MEDS: CYANOCOBALAMIN 1,000 MCG TABLET 3000 MCG PO (08:21)
[2025-01-22] MEDS: FOLIC ACID 0.4 MG TABLET 0.8 MG PO (08:21)
[2025-01-22] MEDS: FERROUS SULFATE 325 MG TABLET DR BY MOUTH (08:21)
[2025-01-22] MEDS: SODIUM BICARBONATE TAB 650 MG TABLET PO ×2 (08:21→17:14)
[2025-01-22] MEDS: MIDODRINE HCL 10 MG TABLET PO ×3 (08:22→17:14)
[2025-01-22] MEDS: ASCORBIC ACID 500 MG TABLET PO (08:22)
[2025-01-22] MEDS: MAGNESIUM OXIDE 400 MG TABLET 200 MG PO (08:22)
[2025-01-22] MEDS: THERAPEUTIC MULTIVITAMINS/MINERALS TAB (*BKC) 1 TABLET PO (08:22)
[2025-01-22] MEDS: ATORVASTATIN 10 MG TABLET PO (08:22)
[2025-01-22] MEDS: POTASSIUM CHLORIDE 10 MEQ ER TABLET PO (08:22)
[2025-01-22] MEDS: PANTOPRAZOLE 40 MG TABLET PO ×2 (08:22→17:14)
[2025-01-22] MEDS: calcitrioL 0.25 MCG CAPSULE PO (08:26)
[2025-01-22] MEDS: EUCERIN CREAM 120 GM JAR 1 APPLIC TOPICAL (08:33)
[2025-01-22 08:46] LABS: Glucose Point of Care 90 mg/dl (65-105)
[2025-01-22 11:11] LABS: Glucose Point of Care 173 mg/dl (65-105)
[2025-01-22] MEDS: INSULIN ASPART (*BKC) 100 UNITS/ML SUB-Q ×2 (12:25→17:14)
--- NOTE | 2025-01-22 14:00 | P.PNNP_ITS ---
Progress Note: A&P Assessment and Plan (1) CATHRYN (acute kidney injury): Code(s): N17.9 - Acute kidney failure, unspecified Status: Acute Assessment and Plan: * slow improvement * renal function/creatinine at baseline on admission * initial rise in creatinine noted on 01/17 * suspect multifactorial: * diuresis * contrast exposure (CT on 01/16) * relative hypotension * infection(?) * other (?) * evaluation to date noted * repet CT of A/P without obstruction * urine electrolytes non-prerenal * rare urine eosinophils - not sure of significance * mild/moderate proteinuria * CPK low * diuretics were on hold - will restart today * follow trend of repeat labs and UOP (2) Chronic kidney disease, stage 3: Qualifiers: Chronic kidney disease stage 3 subtype: stage 3b (GFR 30-44) Qualified Code(s): N18.32 - Chronic kidney disease, stage 3b Code(s): N18.30 - Chronic kidney disease, stage 3 unspecified Status: Chronic Assessment and Plan: * baseline creatinien runs ~ 1.3 - 1.7mg/dl * this causes her to fluctuate between CKD stage 3A and stage 3B * creatinine has been higher in the due to more aggresive diuresis * presumably related to her CHF, previous HTN (not an issue now), DM, vascular disease, liver disease and need for chronic diuretic therapy (3) Acute on chronic diastolic (congestive) heart failure: Code(s): I50.33 - Acute on chronic diastolic (congestive) heart failure Status: Acute Assessment and Plan: * as noted by clinical exam and imaging to date * elevated BNP * CXR showed mild interstitial edema and a small right pleural effusion * last Echo (Oct 2024) with normal systolic function, estimated EF 60 65%, grade 2 diastolic dysfunction. * known history of liver cirrhosis complicates matters * diuretics were on hold given #1 * restart diuretics (bumex) today * will give a few intermittent IV dose as as well * follow daily weights and I/Os (4) Fall from ground level: Code(s): W18.30XA - Fall on same level, unspecified, initial encounter Status: Acute Assessment and Plan: * no acute trauma or injjury * imaging with redemonstrated known right medial tibial plateau fracture (from October of 2024) * PT/OT as tolerated * pain control as needed (5) Chronic anemia: Code(s): D64.9 - Anemia, unspecified Status: Chronic Assessment and Plan: * likely related to CKD and liver disease * PRBC transfusion per protocol * follow trend of H/H (6) Chronic hyponatremia: Code(s): E87.1 - Hypo-osmolality and hyponatremia Status: Chronic Assessment and Plan: * stable at this time * due to CKD, CHF, and liver disease * was on salt tablets * not needed at this time (7) Alcoholic cirrhosis of liver: Qualifiers: Ascites presence: without ascites Qualified Code(s): K70.30 - Alcoholic cirrhosis of liver without ascites Code(s): K70.30 - Alcoholic cirrhosis of liver without ascites Status: Chronic Assessment and Plan: * known history * follows with GI * LFTs normal * continue supportive therapy (8) Diabetes mellitus: Qualifiers: Diabetes mellitus type: type 2 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 L Subjective Date/time seen: 01/22/25 14:00 Interval history: Follow-up for acute kidney injury/acute renal failure on chronic kidney disease. Improvement in renal function/creatinine noted with holding diuretics but she notes increasing swelling/edema at this time in association with abdominal distension; breathing/respiratory status continues to improve if not stabilize; no other acute issues/complaints voiced at the time of my visiit. Exam 2 Narrative: General: elderly but WD/WN female in NAD Heart: normal S1 and S2; no rub Lungs: clear anteriorly; decreased at bases Abdomen: soft, mild distension, positive bowel sounds Extremities: no cyanosis or clubbing; 2+ edema Skin: chronic skin changes apparent Objective Data Vital Signs Vital Signs: Vital Signs Temp Pulse Resp BP Pulse Ox O2 Del Method FiO2 01/22/25 14:00 97.5 F L 87 14 125/60 100 01/22/25 12:00 88 01/22/25 08:00 87 01/22/25 08:00 Room Air 01/22/25 05:20 86 20 01/22/25 05:10 82 24 H 01/22/25 04:50 80 18 01/22/25 04:50 98 Room Air 21 01/22/25 04:00 83 01/22/25 04:00 97.6 F 82 22 H 118/54 L 98 01/22/25 00:00 91 01/21/25 20:00 85 01/21/25 20:00 84 24 H 98 Room Air 21 01/21/25 19:45 98.5 F 84 24 H 126/64 98 Intake/Output Intake/Output: Intake & Output 01/19/25 01/20/25 01/21/25 01/22/25 23:59 23:59 23:59 23:59 Intake Total 1466 920 868 780 Output Total 525 1950 1150 1350 Balance 941 -1030 -282 -570 Meds/Results Medications: Active Medications Generic Name Dose Route Start Last Admin Trade Name Freq PRN Reason Stop Dose Admin Acetaminophen 650 mg 01/16/25 15:05 Acetaminophen 325 Mg Tablet PO Q4H PRN Mild Pain (1-3) or Fever Hydrocodone Bitart/Acetaminophen 1 tab 01/16/25 15:05 01/21/25 15:22 Hydrocodone/Acetaminophen (*Crx) 5-325 Mg Tablet PO 1 tab Q4H PRN Administration Pain Rated 4-6 Albuterol 2.5 mg 01/16/25 22:54 01/22/25 05:07 Albuterol Sulfate Neb 2.5 Mg/3 Ml Inh INHALATION 2.5 mg Q8H PRN Administration shortness of breath or wheezing Alendronate Sodium 70 mg 01/21/25 07:00 01/21/25 06:48 Alendronate Sodium 70 Mg Tablet PO 70 mg Tu@0700 NEIL Administration Ascorbic Acid 500 mg 01/17/25 09:00 01/22/25 08:22 Ascorbic Acid 500 Mg Tablet PO 500 mg DAILY NEIL Administration Aspirin 81 mg 01/17/25 09:00 01/22/25 08:21 Aspirin 81 Mg Enteric Tablet PO 81 mg DAILY NEIL Administration Atorvastatin Calcium 10 mg 01/17/25 09:00 01/22/25 08:22 Atorvastatin 10 Mg Tablet PO 10 mg QAM NEIL Administration Calcitriol 0.25 mcg 01/17/25 09:00 01/22/25 08:26 Calcitriol 0.25 Mcg Capsule PO 0.25 mcg [id number] NEIL Administration Carvedilol 6.25 mg 01/16/25 22:55 01/17/25 10:11 Carvedilol 6.25 Mg Tablet PO Not Given Q12HR NEIL Cyanocobalamin 3,000 mcg 01/17/25 09:00 01/22/25 08:21 Cyanocobalamin 1,000 Mcg Tablet PO 3,000 mcg QAM NEIL Administration Dextrose 12.5 gm 01/16/25 15:05 Dextrose 50% 25 Gm/50 Ml Syringe IV PUSH PRN PRN Hypoglycemia Protocol Empagliflozin 10 mg 01/17/25 09:00 01/22/25 08:21 Empagliflozin 10 Mg Tablet PO 10 mg DAILY NEIL Administration Enoxaparin Sodium 30 mg 01/19/25 09:00 01/19/25 09:01 Enoxaparin 30 Mg/0.3 Ml Syringe SUB-Q 30 mg DAILY NEIL Administration Ferrous Sulfate 325 mg 01/17/25 09:00 01/22/25 08:21 Ferrous Sulfate [address] BY MOUTH 325 mg DAILY NEIL Administration Ferrous Sulfate 325 mg 01/18/25 09:00 01/18/25 10:18 Ferrous Sulfate [address] PO Not Given BID NEIL Fluticasone Propionate 2 spray 01/16/25 22:54 Fluticasone Propionate 0.05% Na Spr 16 Gm Btl (*Bkc) NASAL DAILY PRN allergies Folic Acid 0.8 mg 01/17/25 09:00 01/22/25 08:21 Folic Acid 0.4 Mg Tablet PO 0.8 mg QAM NEIL Administration Furosemide 40 mg 01/17/25 09:00 01/19/25 08:58 Furosemide 40 Mg Tablet PO 40 mg DAILY NEIL Administration Furosemide 40 mg 01/23/25 09:00 Furosemide 40 Mg Tablet PO DAILY NEIL Glucagon 1 mg 01/16/25 15:05 Glucagon For Inj 1 Mg Vial IM PRN PRN Hypoglycemia Protocol Glucose 15 gm 01/16/25 15:05 01/17/25 08:05 Glucose Oral Gel 15 Gm Of Glucse In 37.5 Gm Tube PO 15 gm PRN PRN Administration Hypoglycemia Protocol Dextrose 1,000 mls @ 100 mls/hr 01/16/25 15:05 Dextrose 5% 1,000 Ml IVPB PRN PRN Hypoglycemia Protocol Insulin Aspart 4 - 8 units 01/16/25 17:00 01/22/25 16:27 Insulin Aspart (*Bkc) 100 Units/Ml SUB-Q Not Given TID[facility] Protocol Insulin Aspart 3 units 01/17/25 08:00 01/22/25 17:14 Insulin Aspart (*Bkc) 100 Units/Ml SUB-Q 3 units TIDWM NEIL Administration Insulin Glargine 15 units 01/16/25 22:55 01/21/25 20:10 Insulin Glargine (*Bkc) 100 Units/Ml SUB-Q 15 units HS NEIL Administration Loperamide HCl 2 mg 01/16/25 22:54 Loperamide Hcl 2 Mg Capsule PO QID PRN loose stool Magnesium Oxide 200 mg 01/17/25 09:00 01/22/25 08:22 Magnesium Oxide 400 Mg Tablet PO 200 mg QAM NEIL Administration Midodrine 5 mg 01/17/25 18:00 01/22/25 17:14 Midodrine Hcl 2.5 Mg Tablet PO 5 mg TID NEIL Administration Midodrine 10 mg 01/17/25 18:00 01/22/25 17:14 Midodrine Hcl 10 Mg Tablet PO 10 mg TID NEIL Administration Multi-Ingred Cream/Lotion/Oil/Oint 1 applic 01/17/25 09:00 01/22/25 08:33 Eucerin Cream 120 Gm Jar TOPICAL 1 applic DAILY NEIL Administration Multivitamins/Calcium 1 tablet 01/17/25 09:00 01/22/25 08:22 Therapeutic Multivitamins/Minerals Tab (*Bkc) PO 1 tablet DAILY NEIL Administration Ondansetron HCl 4 mg 01/16/25 15:05 01/20/25 09:44 Ondansetron Inj 4 Mg/2 Ml Vial IV PUSH 4 mg Q4H PRN Administration Nausea Pantoprazole Sodium 40 mg 01/17/25 09:00 01/22/25 17:14 Pantoprazole 40 Mg Tablet PO 40 mg BID NEIL Administration Polyethylene Glycol 17 gm 01/21/25 15:38 Polyethylene Glycol 3350 17 Gm Powd.Pack PO QAM PRN Constipation Potassium Chloride 10 meq 01/17/25 08:00 01/22/25 08:22 Potassium Chloride 10 Meq Er Tablet PO 10 meq DAILY@0800 NEIL Administration Pyridoxine HCl 100 mg 01/17/25 09:00 01/22/25 08:21 Pyridoxine Hcl 50 Mg Tablet PO 100 mg QAM NEIL Administration Senna 8.6 mg 01/16/25 22:54 Sennosides 8.6 Mg Tablet PO DAILY PRN constipation Senna/Docusate Sodium 1 tab 01/21/25 15:39 Senna/Docusate Sodium Tablet PO HS PRN Constipation Sodium Bicarbonate 650 mg 01/19/25 17:00 01/22/25 17:14 Sodium Bicarbonate Tab 650 Mg Tablet PO 650 mg BID NEIL Administration Sodium Chloride 6 ml 01/21/25 05:00 01/22/25 04:50 Sodium Chlor 3% 15 Ml Neb (Respiratory Therapy) INHALATION 01/23/25 05:01 6 ml DAILY@0500 NEIL Administration Spironolactone 50 mg 01/19/25 09:00 01/19/25 08:58 Spironolactone 25 Mg Tablet PO 50 mg QAM NEIL Administration Thiamine HCl 100 mg 01/17/25 09:00 01/22/25 08:21 Thiamine Hcl 100 Mg Tablet PO 100 mg QAM NEIL Administration Radiology Results: ITS Impressions Venous Doppler Study 01/16/25 11:37 IMPRESSION: 1: No lower extremity deep venous thrombosis. Knee X-Ray 01/16/25 12:39 Impression: 1: Medial tibial plateau fracture without significant depression. Recommend correlation with CT or MRI. Abdomen/Pelvis CT 01/16/25 12:46 IMPRESSION: Prominence of the common bile duct with a 4 mm stone in the distal common bile duct. Multiple calcifications have been identified within the ivan hepatis on prior studies, without definitive ductal obstruction, present on the current examination secondary to positioning and technique. Remaining findings within the lower chest, abdomen and pelvis are chronic and unchanged from prior study, as detailed above. Knee CT 01/16/25 13:11 IMPRESSION: 1. Curvilinear subarticular sclerosis underlying the significant portion of the medial tibial plateau without evident acute appearing fracture line or associated marrow edema which could represent either chronic osteochondral lesion/bone infarct or old fracture. Could consider further evaluation with MRI if there is high suspicion for acute fracture. Chest/Abdomen/Pelvis CT 01/20/25 09:00 Impression: Large irregular probable effusion and small left pleural effusion with bibasilar atelectatic change. 12 mm groundglass opacity right upper lobe, which could reflect focal edema or atelectatic change. Correlate clinically or focal pneumonitis. Cirrhotic liver with small amount of ascites and diffuse soft tissue anasarca. Cholelithiasis and choledocholithiasis, unchanged. Extensive atherosclerotic disease, as above. Chest X-Ray 01/20/25 16:57 IMPRESSION: 1. Small bilateral pleural effusions with dependent bibasilar atelectasis and/or pneumonia. 2. Cardia megaly with pericardial calcifications. Thoracentesis Ultrasound 01/20/25 17:15 IMPRESSION: 1. Successful ultrasound-guided thoracentesis yielding 1000 mL of yellow fluid. Abdomen X-Ray 01/21/25 15:21 IMPRESSION: 1. Nonspecific nonobstructive bowel gas pattern. Labs Labs: Laboratory Tests 01/22/25 05:12 01/22/25 05:12 Calcium 8.8 Total Bilirubin 1.3 AST 25 ALT 15 Alkaline Phosphatase 329 H Total Protein 6.0 L Albumin 3.5 Microbiology 01/20/25 16:43 Pleural Fluid Anaerobic Culture - Preliminary 01/20/25 16:43 Pleural Fluid Aerobic Culture - Preliminary 01/20/25 16:43 Pleural Fluid Gram Stain - Final 01/20/25 16:43 Pleural Fluid Acid Fast Bacilli Culture - Preliminary
[2025-01-22 16:22] LABS: Glucose Point of Care 135 mg/dl (65-105)
[2025-01-22] MEDS: BUMETANIDE 1 MG TABLET PO (18:13)
[2025-01-22 20:03] LABS: Glucose Point of Care 165 mg/dl (65-105)
[2025-01-23] VITALS (12 sets, daily range): BP systolic 122–137; BP diastolic 59–70; PULSE 81–95; RESP 13–24; TEMP 36.2–36.5; O2SAT 96–98; BMI 32.8
[2025-01-23 06:15] LABS: Basophils Percent Auto 0.5 % (0.2-1.2); Eosinophils Absolute Auto 0.6 K/mm3 (0-0.3); Eosinophils Percent Auto 6.8 % (0-4.4); Hematocrit 25.3 % (37.0-47.0); Immature Granulocyte Absolute 0.07 K/mm3 (0.00-0.031); Immature Granulocyte Percent A 0.8 % (0-0.5); Lymphocytes Absolute Auto 0.79 K/mm3 (0.9-3.2); Lymphocytes Percent Auto 9.1 % (18.3-44.2); Mean Corpuscular HGB Conc 31.6 g/dl (32-36); Mean Corpuscular Hemoglobin 31.6 pg (26-34); Mean Platelet Volume 10.1 fl (7.4-10.4); Monocytes Absolute Auto 0.8 K/mm3 (0.1-0.6); Monocytes Percent Auto 9.1 % (2.6-8.5); Neutrophils Absolute Auto 6.4 K/mm3 (1.3-6.7); Neutrophils Percent Auto 73.7 % (45.5-73.1); Platelet Count Result 252 k/mm3 (150-375); Red Blood Count 2.53 M/mm3 (4.2-5.4); Red Cell Distribution Width 16.5 % (11.5-14.5); White Blood Count 8.7 K/mm3 (4.5-10.0)
[2025-01-23] MEDS: SODIUM CHLOR 3% 15 ML NEB (RESPIRATORY THERAPY) 6 ML INHALATION (06:23)
[2025-01-23 06:39] LABS: NT Pro B Type Natriuretic Pept 12600 pg/mL (19.9-100)
[2025-01-23 06:42] LABS: Alanine Aminotransferase 15 U/L (6-35); Albumin Level 3.5 g/dL (3.5-5.1); Alkaline Phosphatase 332 U/L (38-126); Anion Gap 7 mmol/L (4-12); Aspartate Amino Transferase 28 U/L (14-36); Bilirubin,Total 1.3 mg/dL (0.2-1.3); Blood Urea Nitrogen 28 mg/dL (7-17); Calcium 8.7 mg/dL (8.4-10.2); Carbon Dioxide 25 mmol/L (22-30); Chloride 103 mmol/L (98-107); Estimated CRCL calculation 26 ml/min; Estimated Glomerular Filt Rate 24; Glucose 126 mg/dL (65-110); Potassium 4.6 mmol/L (3.4-5.0); Sodium 135 mmol/L (137-145)
--- NOTE | 2025-01-23 07:48 | P.PNIM_ITS ---
Progress Note: A&P Assessment and Plan (1) Acute on chronic diastolic (congestive) heart failure: Code(s): I50.33 - Acute on chronic diastolic (congestive) heart failure Status: Acute Assessment and Plan: * BNP 88135 * CXR shown mild interstitial edema and a small right pleural effusion * Last echo from 10/31/24 shown normal LV systolic function with an estimated EF of 60-65%, grade 2 diastolic dysfunction * Nephrology consulted for diuresis, recommend restarting on Lasix (2) Gallstones: Code(s): K80.20 - Calculus of gallbladder without cholecystitis without obstruction Status: Acute Assessment and Plan: * CT of the abdomen and pelvis showed prominence of common bile duct with a 4 mm stone in the distal common bile duct * GI following and recommends surgical consult * If patient to became symptomatic she would need to be transfer to tertiary care facility where she can be managed by a team of liver specialists and hepatobiliary surgeons who treat patients with this degree of cirrhosis. On assessment patient has no signs or symptoms of choledocholithiasis or cholecystitis * Meld score 20 due to her alcohol liver cirrhosis (3) Fall from ground level: Code(s): W18.30XA - Fall on same level, unspecified, initial encounter Status: Acute Assessment and Plan: * Trauma workup negative for acute fracture * Some imaging redemonstrated a right medial tibial plateau fracture that dated back to October of this year, She was seen by Orthopedic surgery at [facility]. * PT and OT ordered * Continue pain control * Continue fall precautions * Per patient she is wheelchair-bound and can do pivot transfers (4) Pleural effusion: Code(s): J90 - Pleural effusion, not elsewhere classified Status: Acute Assessment and Plan: Status post thoracentesis yielding 1000 mL of yellow fluid. 01/20 Patient states breathing has improved (5) Hypotension: Qualifiers: Hypotension type: unspecified hypotension type Qualified Code(s): I95.9 - Hypotension, unspecified Code(s): I95.9 - Hypotension, unspecified Status: Chronic Assessment and Plan: Stable * Continue Midodrine (6) Chronic kidney disease, stage 3: Qualifiers: Chronic kidney disease stage 3 subtype: stage 3b (GFR 30-44) Qualified Code(s): N18.32 - Chronic kidney disease, stage 3b Code(s): N18.30 - Chronic kidney disease, stage 3 unspecified Status: Chronic Assessment and Plan: Worsening acute on chronic * Nephrology consulted for further assistance with diuresis efforts (7) Chronic hyponatremia: Code(s): E87.1 - Hypo-osmolality and hyponatremia Status: Chronic Assessment and Plan: Improving * Continue to monitor (8) Chronic anemia: Code(s): D64.9 - Anemia, unspecified Status: Chronic Assessment and Plan: Iron deficiency anemia Likely secondary to her cirrhosis * Hemoglobin 7.6 * Transfuse if less than 7 * given ferrous sulfate * Iron replacement (9) Insulin dependent type 2 diabetes mellitus: Code(s): E11.9 - Type 2 diabetes mellitus without complications; Z79.4 - longterm (current) use of insulin Status: Chronic Assessment and Plan: Hgb A1C 5.1 on 08/26/2025 * Accu checks AC/HS * High-dose SSI ordered * Continue Latia Johnson, * hypoglycemic protocol in place * Diabetic diet ordered (10) Pressure ulcer of sacral region: Qualifiers: Pressure injury stage: unspecified pressure injury stage Qualified Code(s): L89.159 - Pressure ulcer of sacral region, unspecified stage Code(s): L89.159 - Pressure ulcer of sacral region, unspecified stage Status: Acute Assessment and Plan: * Wound nurse consulted * Continue dressing changes per Wound nurse orders (11) Pressure ulcer, heel, right, unstageable: Code(s): L89.610 - Pressure ulcer of right heel, unstageable Status: Acute Assessment and Plan: * Wound nurse consulted * Continued dressing changes per Wound nursing orders (12) Alcoholic cirrhosis of liver: Qualifiers: Ascites presence: without ascites Qualified Code(s): K70.30 - Alcoholic cirrhosis of liver without ascites Code(s): K70.30 - Alcoholic cirrhosis of liver without ascites Status: Chronic Assessment and Plan: * Cirrhotic liver with small amount of ascites and diffuse soft tissue anasarca Subjective Date/time seen: 01/23/25 07:48 Interval history: Follow-up for acute kidney injury/acute renal failure on chronic kidney disease. 01/23/2025 Patient is sitting comfortably in bed at time of exam. She denies any chest pain, n/v at this time. Does endorse some shortness of breath but reports it has much improved since yesterday. Denies any cough at this time. Still has some lower extremity swelling but this is also improved since yesterday. BNP improving. Will monitor breathing and BNP, as well as lower extremity edema, for tomorrow. Review of Systems Review of Systems: All systems reviewed & are unremarkable except as noted in HPI and below Exam Narrative: General: In no acute distress, well nourished Cardiac: Normal S1 and S2. No murmur, gallops or friction rubs, peripheral pulses intact. Respiratory: Lungs mild expiratory wheezing bilaterally, no adventitious lung sounds, currently on room air, tachypnea Gastrointestinal:distended and taunt, non-tender, normoactive bowel sounds. Pat ient having bowel movements : voiding without difficulty. Extremities: moves all extremities, decreased ROM of LLE/knee, Skin: bilateral jackson erythema, 4+ nonpitting edema Neuro: Alert and oriented x4 Anasarca Const: General: comfortable and no acute distress Other: , female, chronically ill-appearing, nontoxic appearance, obese body habitus. HENMT: Face/Nose/Sinus: Normal nares present Mouth: Yes moist mucous membranes Eyes: General: appearance normal, both eyes and all related structures Sclera: sclerae normal Pupils: Equal, round and reactive pupils present EOM: EOMs intact bilaterally Resp: Effort & Inspection: normal respiratory effort Auscultation: clear to auscultation bilaterally Cardio: Rate: regular rate Rhythm: regular rhythm Other: S1-S2 present without murmur, rub, ectopy GI: Other: Abdomen rounded and tight, nontender. Normoactive bowel sounds in all quadrants. Skin: General skin exam: normal color, no rashes or lesions noted and wounds noted Wounds: wounds noted Other: Pressure wound to buttock region, no active signs of infection. Neuro: Cranial nerves: Yes Equal, round and reactive pupils present Speech: normal speech Motor exam (neuro): 5/5 motor strength present throughout Sensory Exam: normal sensation Other: A&O x4 Extrem: Other: 2+ pitting edema from thighs down bilate rally, symmetric. Jt wraps in place to bilateral calves. Pressure ulcer to right heel, wound bed pink/red with no significant drainage or signs of infection. Large ulceration to sacrum, possible tunneling. Psych: Mental Status: mental status grossly normal Affect: normal affect Other: Good insight and judgment, very pleasant Objective Data Vital Signs Vital Signs: Vital Signs - 24 hr 01/22/25 08:00 01/22/25 08:00 01/22/25 12:00 Temperature Pulse Rate 87 88 Respiratory Rate Blood Pressure Pulse Oximetry Oxygen Delivery Room Air Fraction of Inspired Oxygen 01/22/25 14:00 01/22/25 16:00 01/22/25 19:42 Temperature 97.5 F L Pulse Rate 87 87 Respiratory Rate 14 Blood Pressure 125/60 Pulse Oximetry 100 99 Oxygen Delivery Room Air Fraction of Inspired Oxygen 01/22/25 19:43 01/22/25 19:52 01/22/25 20:00 Temperature Pulse Rate 87 88 88 Respiratory Rate 20 20 12 Blood Pressure Pulse Oximetry 99 Oxygen Delivery Room Air Fraction of Inspired Oxygen 21 01/22/25 20:00 01/22/25 20:50 01/23/25 00:00 Temperature 97.7 F Pulse Rate 90 88 95 Respiratory Rate 12 Blood Pressure 141/71 H Pulse Oximetry 99 Oxygen Delivery Fraction of Inspired Oxygen 01/23/25 04:00 01/23/25 05:51 01/23/25 06:20 Temperature 97.5 F L Pulse Rate 85 91 81 Respiratory Rate 13 20 Blood Pressure 122/63 Pulse Oximetry 98 Oxygen Delivery Fraction of Inspired Oxygen Intake/Output Intake/Output: Intake & Output 01/20/25 01/21/25 01/22/25 01/23/25 23:59 23:59 23:59 23:59 Intake Total 876 365 8491 500 Output Total 1950 1150 1350 1300 [facility] -1030 -282 -330 -800 Meds/Results Medications: Active Medications Generic Name Dose Route Start Last Admin Trade Name Freq PRN Reason Stop Dose Admin Acetaminophen 650 mg 01/16/25 15:05 Acetaminophen 325 Mg Tablet PO Q4H PRN Mild Pain (1-3) or Fever Hydrocodone Bitart/Acetaminophen 1 tab 01/16/25 15:05 01/21/25 15:22 Hydrocodone/Acetaminophen (*Crx) 5-325 Mg Tablet PO 1 tab Q4H PRN Administration Pain Rated 4-6 Albuterol 2.5 mg 01/16/25 22:54 01/22/25 19:41 Albuterol Sulfate Neb 2.5 Mg/3 Ml Inh INHALATION 2.5 mg Q8H PRN Administration shortness of breath or wheezing Alendronate Sodium 70 mg 01/21/25 07:00 01/21/25 06:48 Alendronate Sodium 70 Mg Tablet PO 70 mg Tu@0700 NEIL Administration Ascorbic Acid 500 mg 01/17/25 09:00 01/22/25 08:22 Ascorbic Acid 500 Mg Tablet PO 500 mg DAILY NEIL Administration Aspirin 81 mg 01/17/25 09:00 01/22/25 08:21 Aspirin 81 Mg Enteric Tablet PO 81 mg DAILY NEIL Administration Atorvastatin Calcium 10 mg 01/17/25 09:00 01/22/25 08:22 Atorvastatin 10 Mg Tablet PO 10 mg QAM NEIL Administration Bumetanide 1 mg 01/22/25 18:05 01/22/25 18:13 Bumetanide 1 Mg Tablet PO 1 mg DAILY NEIL Administration Calcitriol 0.25 mcg 01/17/25 09:00 01/22/25 08:26 Calcitriol 0.25 Mcg Capsule PO 0.25 mcg [id number] [facility] Administration Carvedilol 6.25 mg 01/16/25 22:55 01/17/25 10:11 Carvedilol 6.25 Mg Tablet PO Not Given Q12HR [facility] Cyanocobalamin 3,000 mcg 01/17/25 09:00 01/22/25 08:21 Cyanocobalamin 1,000 Mcg Tablet PO 3,000 mcg QAM [facility] Administration Dextrose 12.5 gm 01/16/25 15:05 Dextrose 50% 25 Gm/50 Ml Syringe IV PUSH PRN PRN Hypoglycemia Protocol Empagliflozin 10 mg 01/17/25 09:00 01/22/25 08:21 Empagliflozin 10 Mg Tablet PO 10 mg DAILY [facility] Administration Enoxaparin Sodium 30 mg 01/19/25 09:00 01/19/25 09:01 Enoxaparin 30 Mg/0.3 Ml Syringe SUB-Q 30 mg DAILY [facility] Administration Ferrous Sulfate 325 mg 01/17/25 09:00 01/22/25 08:21 Ferrous Sulfate [address] BY MOUTH 325 mg DAILY [facility] Administration Ferrous Sulfate 325 mg 01/18/25 09:00 01/18/25 10:18 Ferrous Sulfate [address] PO Not Given BID [facility] Fluticasone Propionate 2 spray 01/16/25 22:54 Fluticasone Propionate 0.05% Na Spr 16 Gm Btl (*Bkc) NASAL DAILY PRN allergies Folic Acid 0.8 mg 01/17/25 09:00 01/22/25 08:21 Folic Acid 0.4 Mg Tablet PO 0.8 mg QAM [facility] Administration Glucagon 1 mg 01/16/25 15:05 Glucagon For Inj 1 Mg Vial IM PRN PRN Hypoglycemia Protocol Glucose 15 gm 01/16/25 15:05 01/17/25 08:05 Glucose Oral Gel 15 Gm Of Glucse In 37.5 Gm Tube PO 15 gm PRN PRN Administration Hypoglycemia Protocol Dextrose 1,000 mls @ 100 mls/hr 01/16/25 15:05 Dextrose 5% 1,000 Ml IVPB PRN PRN Hypoglycemia Protocol Insulin Aspart 4 - 8 units 01/16/25 17:00 01/22/25 16:27 Insulin Aspart (*Bkc) 100 Units/Ml SUB-Q Not Given TIDWM NEIL Protocol Insulin Aspart 3 units 01/17/25 08:00 01/22/25 17:14 Insulin Aspart (*Bkc) 100 Units/Ml SUB-Q 3 units TIDWM NEIL Administration Insulin Glargine 15 units 01/16/25 22:55 01/22/25 22:01 Insulin Glargine (*Bkc) 100 Units/Ml SUB-Q Not Given HS [facility] Loperamide HCl 2 mg 01/16/25 22:54 Loperamide Hcl 2 Mg Capsule PO QID PRN loose stool Magnesium Oxide 200 mg 01/17/25 09:00 01/22/25 08:22 Magnesium Oxide 400 Mg Tablet PO 200 mg QAM NEIL Administration Midodrine 5 mg 01/17/25 18:00 01/22/25 17:14 Midodrine Hcl 2.5 Mg Tablet PO 5 mg TID NEIL Administration Midodrine 10 mg 01/17/25 18:00 01/22/25 17:14 Midodrine Hcl 10 Mg Tablet PO 10 mg TID NEIL Administration Multi-Ingred Cream/Lotion/Oil/Oint 1 applic 01/17/25 09:00 01/22/25 08:33 Eucerin Cream 120 Gm Jar TOPICAL 1 applic DAILY NEIL Administration Multivitamins/Calcium 1 tablet 01/17/25 09:00 01/22/25 08:22 Therapeutic Multivitamins/Minerals Tab (*Bkc) PO 1 tablet DAILY NEIL Administration Ondansetron HCl 4 mg 01/16/25 15:05 01/20/25 09:44 Ondansetron Inj 4 Mg/2 Ml Vial IV PUSH 4 mg Q4H PRN Administration Nausea Pantoprazole Sodium 40 mg 01/17/25 09:00 01/22/25 17:14 Pantoprazole 40 Mg Tablet PO 40 mg BID NEIL Administration Polyethylene Glycol 17 gm 01/21/25 15:38 Polyethylene Glycol 3350 17 Gm Powd.Pack PO QAM PRN Constipation Potassium Chloride 10 meq 01/17/25 08:00 01/22/25 08:22 Potassium Chloride 10 Meq Er Tablet PO 10 meq DAILY@0800 NEIL Administration Pyridoxine HCl 100 mg 01/17/25 09:00 01/22/25 08:21 Pyridoxine Hcl 50 Mg Tablet PO 100 mg QAM NEIL Administration Senna 8.6 mg 01/16/25 22:54 Sennosides 8.6 Mg Tablet PO DAILY PRN constipation Senna/Docusate Sodium 1 tab 01/21/25 15:39 Senna/Docusate Sodium Tablet PO HS PRN Constipation Sodium Bicarbonate 650 mg 01/19/25 17:00 01/22/25 17:14 Sodium Bicarbonate Tab 650 Mg Tablet PO 650 mg BID NEIL Administration Spironolactone 50 mg 01/19/25 09:00 01/19/25 08:58 Spironolactone 25 Mg Tablet PO 50 mg QAM NEIL Administration Thiamine HCl 100 mg 01/17/25 09:00 01/22/25 08:21 Thiamine Hcl 100 Mg Tablet PO 100 mg QAM NEIL Administration Radiology Results: ITS Impressions Venous Doppler Study 01/16/25 11:37 IMPRESSION: 1: No lower extremity deep venous thrombosis. Knee X-Ray 01/16/25 12:39 Impression: 1: Medial tibial plateau fracture without significant depression. Recommend correlation with CT or MRI. Abdomen/Pelvis CT 01/16/25 12:46 IMPRESSION: Prominence of the common bile duct with a 4 mm stone in the distal common bile duct. Multiple calcifications have been identified within the ivan hepatis on prior studies, without definitive ductal obstruction, present on the current examination secondary to positioning and technique. Remaining findings within the lower chest, abdomen and pelvis are chronic and unchanged from prior study, as detailed above. Knee CT 01/16/25 13:11 IMPRESSION: 1. Curvilinear subarticular sclerosis underlying the significant portion of the medial tibial plateau without evident acute appearing fracture line or associated marrow edema which could represent either chronic osteochondral l esion/bone infarct or old fracture. Could consider further evaluation with MRI if there is high suspicion for acute fracture. Chest/Abdomen/Pelvis CT 01/20/25 09:00 Impression: Large irregular probable effusion and small left pleural effusion with bibasilar atelectatic change. 12 mm groundglass opacity right upper lobe, which could reflect focal edema or atelectatic change. Correlate clinically or focal pneumonitis. Cirrhotic liver with small amount of ascites and diffuse soft tissue anasarca. Cholelithiasis and choledocholithiasis, unchanged. Extensive atherosclerotic disease, as above. Chest X-Ray 01/20/25 16:57 IMPRESSION: 1. Small bilateral pleural effusions with dependent bibasilar atelectasis and/or pneumonia. 2. Cardia megaly with pericardial calcifications. Thoracentesis Ultrasound 01/20/25 17:15 IMPRESSION: 1. Successful ultrasound-guided thoracentesis yielding 1000 mL of yellow fluid. Abdomen X-Ray 01/21/25 15:21 IMPRESSION: 1. Nonspecific nonobstructive bowel gas pattern. Labs Labs: Laboratory Results - last 24 hr 01/22/25 01/22/25 01/22/25 08:44 11:06 16:19 WBC RBC Hgb Hct MCV MCH MCHC RDW Plt Count MPV Immature Gran % (Auto) Neut % (Auto) Lymph % (Auto) Tyrrell % (Auto) Eos % (Auto) Baso % (Auto) Lymph # (Auto) Tyrrell # (Auto) Eos # (Auto) Baso # (Auto) Abs Immat Gran (auto) Absolute Neuts (auto) Absolute Nucleated RBC Nucleated RBC % Sodium Potassium Chloride Carbon Dioxide Anion Gap BUN Creatinine Estim Creat Clear Calc Estimated GFR Glucose POC Capillary Glucose 90 173 H 135 H Calcium Total Bilirubin AST ALT Alkaline Phosphatase NT-Pro-B Natriuret Pep Total Protein Albumin 01/22/25 01/23/25 19:42 05:31 WBC 8.7 RBC 2.53 L Hgb 8.0 L Hct 25.3 L MCV 100.0 MCH 31.6 MCHC 31.6 L RDW 16.5 H Plt Count 252 MPV 10.1 Immature Gran % (Auto) 0.8 H Neut % (Auto) 73.7 H Lymph % (Auto) 9.1 L Tyrrell % (Auto) 9.1 H Eos % (Auto) 6.8 H Baso % (Auto) 0.5 Lymph # (Auto) 0.79 L Tyrrell # (Auto) 0.8 H Eos # (Auto) 0.6 H Baso # (Auto) 0.0 Abs Immat Gran (auto) 0.07 H Absolute Neuts (auto) 6.4 Absolute Nucleated RBC 0.000 Nucleated RBC % 0.0 Sodium 135 L Potassium 4.6 Chloride 103 Carbon Dioxide 25 Anion Gap 7 BUN 28 H Creatinine 2.01 H Estim Creat Clear Calc 26 Estimated GFR 24 L Glucose 126 H POC Capillary Glucose 165 H Calcium 8.7 Total Bilirubin 1.3 AST 28 ALT 15 Alkaline Phosphatase 332 H NT-Pro-B Natriuret Pep 09869 H Total Protein 6.0 L Albumin 3.5 Quality VTE Prophylaxis VTE prophylaxis: pharmacologic ordered
[2025-01-23] MEDS: CYANOCOBALAMIN 1,000 MCG TABLET 3000 MCG PO (08:27)
[2025-01-23] MEDS: ASCORBIC ACID 500 MG TABLET PO (08:27)
[2025-01-23] MEDS: THERAPEUTIC MULTIVITAMINS/MINERALS TAB (*BKC) 1 TABLET PO (08:27)
[2025-01-23] MEDS: PYRIDOXINE HCL 50 MG TABLET 100 MG PO (08:27)
[2025-01-23] MEDS: MIDODRINE HCL 10 MG TABLET PO ×3 (08:27→18:18)
[2025-01-23] MEDS: FOLIC ACID 0.4 MG TABLET 0.8 MG PO (08:27)
[2025-01-23] MEDS: MIDODRINE HCL 2.5 MG TABLET 5 MG PO ×3 (08:27→18:18)
[2025-01-23] MEDS: EMPAGLIFLOZIN 10 MG TABLET PO (08:28)
[2025-01-23] MEDS: THIAMINE HCL 100 MG TABLET PO (08:28)
[2025-01-23] MEDS: ASPIRIN 81 MG ENTERIC TABLET PO (08:28)
[2025-01-23] MEDS: BUMETANIDE 1 MG TABLET PO (08:28)
[2025-01-23] MEDS: SODIUM BICARBONATE TAB 650 MG TABLET PO ×2 (08:28→18:18)
[2025-01-23] MEDS: MAGNESIUM OXIDE 400 MG TABLET 200 MG PO (08:28)
[2025-01-23] MEDS: POTASSIUM CHLORIDE 10 MEQ ER TABLET PO (08:29)
[2025-01-23] MEDS: PANTOPRAZOLE 40 MG TABLET PO ×2 (08:29→18:18)
[2025-01-23] MEDS: FERROUS SULFATE 325 MG TABLET DR BY MOUTH (08:29)
[2025-01-23] MEDS: ATORVASTATIN 10 MG TABLET PO (08:29)
[2025-01-23] MEDS: EUCERIN CREAM 120 GM JAR 1 APPLIC TOPICAL (08:30)
[2025-01-23] MEDS: INSULIN ASPART (*BKC) 100 UNITS/ML SUB-Q (08:36)
[2025-01-23 09:36] LABS: Glucose Point of Care 126 mg/dl (65-105)
[2025-01-23 11:56] LABS: Glucose Point of Care 162 mg/dl (65-105)
--- NOTE | 2025-01-23 14:15 | P.PNNP_ITS ---
Progress Note: A&P Assessment and Plan (1) CATHRYN (acute kidney injury): Code(s): N17.9 - Acute kidney failure, unspecified Status: Acute Assessment and Plan: * slow improvement * renal function/creatinine at baseline on admission * initial rise in creatinine noted on 01/17 * suspect multifactorial: * diuresis * contrast exposure (CT on 01/16) * relative hypotension * infection(?) * other (?) * evaluation to date noted * repet CT of A/P without obstruction * urine electrolytes non-prerenal * rare urine eosinophils - not sure of significance * mild/moderate proteinuria * CPK low * diuretics were on hold - resumed * follow trend of repeat labs and UOP (2) Chronic kidney disease, stage 3: Qualifiers: Chronic kidney disease stage 3 subtype: stage 3b (GFR 30-44) Qualified Code(s): N18.32 - Chronic kidney disease, stage 3b Code(s): N18.30 - Chronic kidney disease, stage 3 unspecified Status: Chronic Assessment and Plan: * baseline creatinien runs ~ 1.3 - 1.7mg/dl * this causes her to fluctuate between CKD stage 3A and stage 3B * creatinine has been higher in the due to more aggresive diuresis * presumably related to her CHF, previous HTN (not an issue now), DM, vascular disease, liver disease and need for chronic diuretic therapy (3) Acute on chronic diastolic (congestive) heart failure: Code(s): I50.33 - Acute on chronic diastolic (congestive) heart failure Status: Acute Assessment and Plan: * as noted by clinical exam and imaging to date * elevated BNP * CXR showed mild interstitial edema and a small right pleural effusion * last Echo (Oct 2024) with normal systolic function, estimated EF 60 65%, grade 2 diastolic dysfunction. * known history of liver cirrhosis complicates matters * diuretics were on hold given #1 * resumed on diuretics (bumex) on 01/22 * follow daily weights and I/Os (4) Fall from ground level: Code(s): W18.30XA - Fall on same level, unspecified, initial encounter Status: Acute Assessment and Plan: * no acute trauma or injjury * imaging with redemonstrated known right medial tibial plateau fracture (from October of 2024) * PT/OT as tolerated * pain control as needed (5) Chronic anemia: Code(s): D64.9 - Anemia, unspecified Status: Chronic Assessment and Plan: * likely related to CKD and liver disease * PRBC transfusion per protocol * follow trend of H/H (6) Chronic hyponatremia: Code(s): E87.1 - Hypo-osmolality and hyponatremia Status: Chronic Assessment and Plan: * stable at this time * due to CKD, CHF, and liver disease * was on salt tablets * not needed at this time (7) Alcoholic cirrhosis of liver: Qualifiers: Ascites presence: without ascites Qualified Code(s): K70.30 - Alcoholic cirrhosis of liver without ascites Code(s): K70.30 - Alcoholic cirrhosis of liver without ascites Status: Chronic Assessment and Plan: * known history * follows with GI * LFTs normal * continue supportive therapy (8) Diabetes mellitus: Qualifiers: Diabetes mellitus type: type 2 Diabetes mellitus half-way insulin use: with intermediate manager use Diabetes mellitus complication status: without complication Qualified Code(s): E11.9 - Type 2 diabetes mellitus without complications; Z79.4 - halfway (current) use of insulin Code(s): E11.9 - Type 2 diabetes mellitus without complications Status: Chronic Assessment and Plan: * follow accu-cheks * glycemic control per hospitalist Will continue to follow. L Subjective Date/time seen: 01/23/25 14:15 Interval history: Follow-up for acute kidney injury/acute renal failure on chronic kidney disease. Renal function/creatinine continues to improve with reasonable urine output and appears to be tolerating restart of oral diuretic therapy (bumex started yesterday evening/afternoon) along with intermittent IV bumex dosing; no apparent distress noted at the time of my visit; no issues/events overnight or earlier this morning. Exam 2 Narrative: General: elderly but WD/WN female in NAD Heart: normal S1 and S2; no rub Lungs: clear anteriorly; decreased at bases Abdomen: soft, mild distension, positive bowel sounds Extremities: no cyanosis or clubbing; 1 - 2+ edema Skin: chronic skin changes Objective Data Vital Signs Vital Signs: Vital Signs Temp Pulse Resp BP Pulse Ox O2 Del Method FiO2 01/23/25 14:12 97.2 F L 94 14 127/59 L 98 01/23/25 08:00 87 01/23/25 08:00 81 20 98 Room Air 21 01/23/25 06:20 81 20 04/10/25 05:51 97.5 F L 91 13 122/63 98 01/23/25 04:00 85 01/23/25 00:00 95 01/22/25 20:50 97.7 F 88 12 141/71 H 99 01/22/25 20:00 90 01/22/25 20:00 88 12 99 Room Air 21 01/22/25 19:52 88 20 01/22/25 19:43 87 20 01/22/25 19:42 99 Room Air Intake/Output Intake/Output: Intake & Output 01/20/25 01/21/25 01/22/25 01/23/25 23:59 23:59 23:59 23:59 Intake Total 268 291 6731 1060 Output Total 1950 1150 1350 1300 Balance -1030 -282 -330 -240 Meds/Results Medications: Active Medications Generic Name Dose Route Start Last Admin Trade Name Freq PRN Reason Stop Dose Admin Acetaminophen 650 mg 01/16/25 15:05 Acetaminophen 325 Mg Tablet PO Q4H PRN Mild Pain (1-3) or Fever Hydrocodone Bitart/Acetaminophen 1 tab 01/16/25 15:05 01/21/25 15:22 Hydrocodone/Acetaminophen (*Crx) 5-325 Mg Tablet PO 1 tab Q4H PRN Administration Pain Rated 4-6 Albuterol 2.5 mg 01/16/25 22:54 01/22/25 19:41 Albuterol Sulfate Neb 2.5 Mg/3 Ml Inh INHALATION 2.5 mg Q8H PRN Administration shortness of breath or wheezing Alendronate Sodium 70 mg 01/21/25 07:00 01/21/25 06:48 Alendronate Sodium 70 Mg Tablet PO 70 mg Tu@0700 NEIL Administration Ascorbic Acid 500 mg 01/17/25 09:00 01/23/25 08:27 Ascorbic Acid 500 Mg Tablet PO 500 mg DAILY NEIL Administration Aspirin 81 mg 01/17/25 09:00 01/23/25 08:28 Aspirin 81 Mg Enteric Tablet PO 81 mg DAILY NEIL Administration Atorvastatin Calcium 10 mg 01/17/25 09:00 01/23/25 08:29 Atorvastatin 10 Mg Tablet PO 10 mg QAM NEIL Administration Bumetanide 1 mg 01/22/25 18:05 01/23/25 08:28 Bumetanide 1 Mg Tablet PO 1 mg DAILY NEIL Administration Calcitriol 0.25 mcg 01/17/25 09:00 01/22/25 08:26 Calcitriol 0.25 Mcg Capsule PO 0.25 mcg [id number]@[id number] NEIL Administration Carvedilol 6.25 mg 01/16/25 22:55 01/17/25 10:11 Carvedilol 6.25 Mg Tablet PO Not Given Q12HR [facility] Cyanocobalamin 3,000 mcg 01/17/25 09:00 01/23/25 08:27 Cyanocobalamin 1,000 Mcg Tablet PO 3,000 mcg QAM [facility] Administration Dextrose 12.5 gm 01/16/25 15:05 Dextrose 50% 25 Gm/50 Ml Syringe IV PUSH PRN PRN Hypoglycemia Protocol Empagliflozin 10 mg 01/17/25 09:00 01/23/25 08:28 Empagliflozin 10 Mg Tablet PO 10 mg DAILY [facility] Administration Enoxaparin Sodium 30 mg 01/19/25 09:00 01/19/25 09:01 Enoxaparin 30 Mg/0.3 Ml Syringe SUB-Q 30 mg DAILY [facility] Administration Ferrous Sulfate 325 mg 01/17/25 09:00 01/23/25 08:29 Ferrous Sulfate [address] BY MOUTH 325 mg DAILY [facility] Administration Ferrous Sulfate 325 mg 01/18/25 09:00 01/18/25 10:18 Ferrous Sulfate [address] PO Not Given BID [facility] Fluticasone Propionate 2 spray 01/16/25 22:54 Fluticasone Propionate 0.05% Na Spr 16 Gm Btl (*Bkc) NASAL DAILY PRN allergies Folic Acid 0.8 mg 01/17/25 09:00 01/23/25 08:27 Folic Acid 0.4 Mg Tablet PO 0.8 mg QAM [facility] Administration Glucagon 1 mg 01/16/25 15:05 Glucagon For Inj 1 Mg Vial IM PRN PRN Hypoglycemia Protocol Glucose 15 gm 01/16/25 15:05 01/17/25 08:05 Glucose Oral Gel 15 Gm Of Glucse In 37.5 Gm Tube PO 15 gm PRN PRN Administration Hypoglycemia Protocol Dextrose 1,000 mls @ 100 mls/hr 01/16/25 15:05 Dextrose 5% 1,000 Ml IVPB PRN PRN Hypoglycemia Protocol Insulin Aspart 4 - 8 units 01/16/25 17:00 01/23/25 14:12 Insulin Aspart (*Bkc) 100 Units/Ml SUB-Q Not Given [facility] Protocol Insulin Aspart 3 units 01/17/25 08:00 01/23/25 14:12 Insulin Aspart (*Bkc) 100 Units/Ml SUB-Q Not Given [facility] Insulin Glargine 15 units 01/16/25 22:55 01/22/25 22:01 Insulin Glargine (*Bkc) 100 Units/Ml SUB-Q Not Given [facility] Loperamide HCl 2 mg 01/16/25 22:54 Loperamide Hcl 2 Mg Capsule PO QID PRN loose stool Magnesium Oxide 200 mg 01/17/25 09:00 01/23/25 08:28 Magnesium Oxide 400 Mg Tablet PO 200 mg QAM [facility] Administration Midodrine 5 mg 01/17/25 18:00 01/23/25 14:13 Midodrine Hcl 2.5 Mg Tablet PO 5 mg TID [facility] Administration Midodrine 10 mg 01/17/25 18:00 01/23/25 14:13 Midodrine Hcl 10 Mg Tablet PO 10 mg TID [facility] Administration Multi-Ingred Cream/Lotion/Oil/Oint 1 applic 01/17/25 09:00 01/23/25 08:30 Eucerin Cream 120 Gm Jar TOPICAL 1 applic DAILY [facility] Administration Multivitamins/Calcium 1 tablet 01/17/25 09:00 01/23/25 08:27 Therapeutic Multivitamins/Minerals Tab (*Bkc) PO 1 tablet DAILY [facility] Administration Ondansetron HCl 4 mg 01/16/25 15:05 01/20/25 09:44 Ondansetron Inj 4 Mg/2 Ml Vial IV PUSH 4 mg Q4H PRN Administration Nausea Pantoprazole Sodium 40 mg 01/17/25 09:00 01/23/25 08:29 Pantoprazole 40 Mg Tablet PO 40 mg BID NEIL Administration Polyethylene Glycol 17 gm 01/21/25 15:38 Polyethylene Glycol 3350 17 Gm Powd.Pack PO QAM PRN Constipation Potassium Chloride 10 meq 01/17/25 08:00 01/23/25 08:29 Potassium Chloride 10 Meq Er Tablet PO 10 meq DAILY@0800 [facility] Administration Pyridoxine HCl 100 mg 01/17/25 09:00 01/23/25 08:27 Pyridoxine Hcl 50 Mg Tablet PO 100 mg QAM NEIL Administration Senna 8.6 mg 01/16/25 22:54 Sennosides 8.6 Mg Tablet PO DAILY PRN constipation Senna/Docusate Sodium 1 tab 01/21/25 15:39 Senna/Docusate Sodium Tablet PO HS PRN Constipation Sodium Bicarbonate 650 mg 01/19/25 17:00 01/23/25 08:28 Sodium Bicarbonate Tab 650 Mg Tablet PO 650 mg BID NEIL Administration Spironolactone 50 mg 01/19/25 09:00 01/19/25 08:58 Spironolactone 25 Mg Tablet PO 50 mg QAM NEIL Administration Thiamine HCl 100 mg 01/17/25 09:00 01/23/25 08:28 Thiamine Hcl 100 Mg Tablet PO 100 mg QAM NEIL Administration Radiology Results: ITS Impressions Venous Doppler Study 01/16/25 11:37 IMPRESSION: 1: No lower extremity deep venous thrombosis. Knee X-Ray 01/16/25 12:39 Impression: 1: Medial tibial plateau fracture without significant depression. Recommend correlation with CT or MRI. Abdomen/Pelvis CT 01/16/25 12:46 IMPRESSION: Prominence of the common bile duct with a 4 mm stone in the distal common bile duct. Multiple calcifications have been identified within the ivan hepatis on prior studies, without definitive ductal obstruction, present on the current examination secondary to positioning and technique. Remaining findings within the lower chest, abdomen and pelvis are chronic and unchanged from prior study, as detailed above. Knee CT 01/16/25 13:11 IMPRESSION: 1. Curvilinear subarticular sclerosis underlying the significant portion of the medial tibial plateau without evident acute appearing fracture line or associated marrow edema which could represent either chronic osteochondral lesion/bone infarct or old fracture. Could consider further evaluation with MRI if there is high suspicion for acute fracture. Chest/Abdomen/Pelvis CT 01/20/25 09:00 Impression: Large irregular probable effusion and small left pleural effusion with bibasilar atelectatic change. 12 mm groundglass opacity right upper lobe, which could reflect focal edema or atelectatic change. Correlate clinically or focal pneumonitis. Cirrhotic liver with small amount of ascites and diffuse soft tissue anasarca. Cholelithiasis and choledocholithiasis, unchanged. Extensive atherosclerotic disease, as above. Chest X-Ray 01/20/25 16:57 IMPRESSION: 1. Small bilateral pleural effusions with dependent bibasilar atelectasis and/or pneumonia. 2. Cardia megaly with pericardial calcifications. Thoracentesis Ultrasound 01/20/25 17:15 IMPRESSION: 1. Successful ultrasound-guided thoracentesis yielding 1000 mL of yellow fluid. Abdomen X-Ray 01/21/25 15:21 IMPRESSION: 1. Nonspecific nonobstructive bowel gas pattern. Labs Labs: Laboratory Tests 01/23/25 05:31 01/23/25 05:31 Calcium 8.7 Total Bilirubin 1.3 AST 28 ALT 15 Alkaline Phosphatase 332 H NT-Pro-B Natriuret Pep 53671 H Total Protein 6.0 L Albumin 3.5
[2025-01-23 17:08] LABS: Glucose Point of Care 157 mg/dl (65-105)
[2025-01-23 20:37] LABS: Glucose Point of Care 198 mg/dl (65-105)
[2025-01-23] MEDS: ALBUTEROL SULFATE NEB 2.5 MG/3 ML INH INHALATION (20:56)
[2025-01-23] MEDS: INSULIN GLARGINE (*BKC) 100 UNITS/ML 15 UNITS SUB-Q (22:07)
[2025-01-23] MEDS: BUMETANIDE INJ 1 MG/4 ML VIAL IV PUSH (22:12)
[2025-01-24] VITALS (11 sets, daily range): BP systolic 122–142; BP diastolic 60–61; PULSE 88–100; RESP 18–24; TEMP 36–37.4; O2SAT 99–100
[2025-01-24 06:47] LABS: Basophils Absolute Auto 0.1 K/mm3 (0.0-0.1); Basophils Percent Auto 0.6 % (0.2-1.2); Eosinophils Absolute Auto 0.8 K/mm3 (0-0.3); Eosinophils Percent Auto 9.8 % (0-4.4); Hematocrit 26.4 % (37.0-47.0); Hemoglobin 8.3 g/dL (12.0-15.0); Immature Granulocyte Absolute 0.06 K/mm3 (0.00-0.031); Immature Granulocyte Percent A 0.7 % (0-0.5); Lymphocytes Absolute Auto 0.93 K/mm3 (0.9-3.2); Lymphocytes Percent Auto 11.3 % (18.3-44.2); Mean Corpuscular HGB Conc 31.4 g/dl (32-36); Mean Corpuscular Hemoglobin 31.6 pg (26-34); Mean Corpuscular Volume 100.4 fl (80-100); Mean Platelet Volume 10.1 fl (7.4-10.4); Monocytes Absolute Auto 0.9 K/mm3 (0.1-0.6); Neutrophils Absolute Auto 5.5 K/mm3 (1.3-6.7); Neutrophils Percent Auto 66.6 % (45.5-73.1); Platelet Count Result 256 k/mm3 (150-375); Red Blood Count 2.63 M/mm3 (4.2-5.4); Red Cell Distribution Width 16.5 % (11.5-14.5); White Blood Count 8.2 K/mm3 (4.5-10.0)
[2025-01-24 07:12] LABS: Alanine Aminotransferase 15 U/L (6-35); Albumin Level 3.5 g/dL (3.5-5.1); Alkaline Phosphatase 363 U/L (38-126); Anion Gap 10 mmol/L (4-12); Aspartate Amino Transferase 26 U/L (14-36); Bilirubin,Total 1.3 mg/dL (0.2-1.3); Blood Urea Nitrogen 24 mg/dL (7-17); Calcium 8.5 mg/dL (8.4-10.2); Carbon Dioxide 24 mmol/L (22-30); Chloride 100 mmol/L (98-107); Estimated CRCL calculation 28 ml/min; Estimated Glomerular Filt Rate 27; Glucose 111 mg/dL (65-110); NT Pro B Type Natriuretic Pept 10900 pg/mL (19.9-100); Potassium 3.7 mmol/L (3.4-5.0); Sodium 134 mmol/L (137-145)
[2025-01-24 07:53] LABS: Glucose Point of Care 107 mg/dl (65-105)
[2025-01-24] MEDS: ASCORBIC ACID 500 MG TABLET PO (09:30)
[2025-01-24] MEDS: THERAPEUTIC MULTIVITAMINS/MINERALS TAB (*BKC) 1 TABLET PO (09:30)
[2025-01-24] MEDS: ASPIRIN 81 MG ENTERIC TABLET PO (09:30)
[2025-01-24] MEDS: POTASSIUM CHLORIDE 10 MEQ ER TABLET PO (09:30)
[2025-01-24] MEDS: ATORVASTATIN 10 MG TABLET PO (09:30)
[2025-01-24] MEDS: calcitrioL 0.25 MCG CAPSULE PO (09:30)
[2025-01-24] MEDS: BUMETANIDE 1 MG TABLET PO (09:30)
[2025-01-24] MEDS: EMPAGLIFLOZIN 10 MG TABLET PO (09:31)
[2025-01-24] MEDS: CYANOCOBALAMIN 1,000 MCG TABLET 3000 MCG PO (09:31)
[2025-01-24] MEDS: THIAMINE HCL 100 MG TABLET PO (09:31)
[2025-01-24] MEDS: MIDODRINE HCL 10 MG TABLET PO ×3 (09:31→17:05)
[2025-01-24] MEDS: MIDODRINE HCL 2.5 MG TABLET 5 MG PO ×3 (09:31→17:05)
[2025-01-24] MEDS: FERROUS SULFATE 325 MG TABLET DR BY MOUTH (09:31)
[2025-01-24] MEDS: MAGNESIUM OXIDE 400 MG TABLET 200 MG PO (09:33)
[2025-01-24] MEDS: FOLIC ACID 0.4 MG TABLET 0.8 MG PO (09:34)
[2025-01-24] MEDS: SODIUM BICARBONATE TAB 650 MG TABLET PO ×2 (09:34→17:05)
[2025-01-24] MEDS: PANTOPRAZOLE 40 MG TABLET PO ×2 (09:41→17:05)
[2025-01-24] MEDS: EUCERIN CREAM 120 GM JAR 1 APPLIC TOPICAL (09:41)
[2025-01-24] MEDS: PYRIDOXINE HCL 50 MG TABLET 100 MG PO (09:41)
[2025-01-24] MEDS: INSULIN ASPART (*BKC) 100 UNITS/ML SUB-Q ×3 (09:43→17:05)
[2025-01-24 09:50] LABS: Glucose Point of Care 110 mg/dl (65-105)
--- NOTE | 2025-01-24 11:08 | P.PNNP_ITS ---
Progress Note: A&P Assessment and Plan (1) CATHRYN (acute kidney injury): Code(s): N17.9 - Acute kidney failure, unspecified Status: Acute Assessment and Plan: * slow improvement * renal function/creatinine at baseline on admission * initial rise in creatinine noted on 01/17 * suspect multifactorial: * diuresis * contrast exposure (CT on 01/16) * relative hypotension * infection(?) * other (?) * evaluation to date noted * repet CT of A/P without obstruction * urine electrolytes non-prerenal * rare urine eosinophils - not sure of significance * mild/moderate proteinuria * CPK low * diuretics were on hold - resumed * follow trend of repeat labs and UOP (2) Chronic kidney disease, stage 3: Qualifiers: Chronic kidney disease stage 3 subtype: stage 3b (GFR 30-44) Qualified Code(s): N18.32 - Chronic kidney disease, stage 3b Code(s): N18.30 - Chronic kidney disease, stage 3 unspecified Status: Chronic Assessment and Plan: * baseline creatinien runs ~ 1.3 - 1.7mg/dl * this causes her to fluctuate between CKD stage 3A and stage 3B * creatinine has been higher in the due to more aggresive diuresis * presumably related to her CHF, previous HTN (not an issue now), DM, vascular disease, liver disease and need for chronic diuretic therapy (3) Acute on chronic diastolic (congestive) heart failure: Code(s): I50.33 - Acute on chronic diastolic (congestive) heart failure Status: Acute Assessment and Plan: * as noted by clinical exam and imaging to date * elevated BNP * CXR showed mild interstitial edema and a small right pleural effusion * last Echo (Oct 2024) with normal systolic function, estimated EF 60 65%, grade 2 diastolic dysfunction. * known history of liver cirrhosis complicates matters * diuretics were on hold given #1 * resumed on diuretics (bumex) on 01/22 * suspect will need to adjust dosing and frequency based on exam and I/Os * follow daily weights and I/Os (4) Fall from ground level: Code(s): W18.30XA - Fall on same level, unspecified, initial encounter Status: Acute Assessment and Plan: * no acute trauma or injjury * imaging with redemonstrated known right medial tibial plateau fracture (from October of 2024) * PT/OT as tolerated * pain control as needed (5) Chronic anemia: Code(s): D64.9 - Anemia, unspecified Status: Chronic Assessment and Plan: * likely related to CKD and liver disease * PRBC transfusion per protocol * follow trend of H/H (6) Chronic hyponatremia: Code(s): E87.1 - Hypo-osmolality and hyponatremia Status: Chronic Assessment and Plan: * stable at this time * due to CKD, CHF, and liver disease * was on salt tablets * not needed at this time (7) Alcoholic cirrhosis of liver: Qualifiers: Ascites presence: without ascites Qualified Code(s): K70.30 - Alcoholic cirrhosis of liver without ascites Code(s): K70.30 - Alcoholic cirrhosis of liver without ascites Status: Chronic Assessment and Plan: * known history * follows with GI * LFTs normal * continue supportive therapy (8) Diabetes mellitus: Qualifiers: Diabetes mellitus type: type 2 Diabetes mellitus care home insulin use: with keno terminal operator use Diabetes mellitus complication status: without complication Qualified Code(s): E11.9 - Type 2 diabetes mellitus without complications; Z79.4 - intermediate frame tender (current) use of insulin Code(s): E11.9 - Type 2 diabetes mellitus without complications Status: Chronic Assessment and Plan: * follow accu-cheks * glycemic control per hospitalist Will continue to follow. L Subjective Date/time seen: 01/24/25 11:08 Interval history: Follow-up for acute kidney injury/acute renal failure on chronic kidney disease. Renal function/creatinie continues to improve despite ongoing diuretic therapy and negative I/Os in the past few days; no acute complaints or issues voiced at the time of my visit; no apparent distress noted; was hoping to go [facility] on discharge but is willing to go to rehab if necessary. Exam 2 Narrative: General: elderly but WD/WN female in NAD Heart: normal S1 and S2; no rub Lungs: clear anteriorly; decreased at bases Abdomen: soft, mild distension, positive bowel sounds Extremities: no cyanosis or clubbing; 1 - 2+ edema Skin: chronic skin changes Objective Data Vital Signs Vital Signs: Vital Signs Temp Pulse Resp BP Pulse Ox O2 Del Method FiO2 01/24/25 11:00 97.7 F 99 18 142/60 H 100 01/24/25 09:43 90 01/24/25 09:43 Room Air 01/24/25 04:25 96.8 F L 88 24 H 122/61 99 01/24/25 04:00 92 01/24/25 00:00 91 01/23/25 21:04 88 20 01/23/25 20:57 86 20 01/23/25 20:57 96 Room Air 21 01/23/25 20:15 97.7 F 94 24 H 137/70 97 01/23/25 20:00 94 01/23/25 16:00 92 Intake/Output Intake/Output: Intake & Output 01/21/25 01/22/25 01/23/25 01/24/25 23:59 23:59 23:59 23:59 Intake Total 868 1020 1590 790 Output Total 1150 1350 2700 1400 Balance -282 -330 -1110 -610 Meds/Results Medications: Active Medications Generic Name Dose Route Start Last Admin Trade Name Freq PRN Reason Stop Dose Admin Acetaminophen 650 mg 01/16/25 15:05 Acetaminophen 325 Mg Tablet PO Q4H PRN Mild Pain (1-3) or Fever Hydrocodone Bitart/Acetaminophen 1 tab 01/16/25 15:05 01/21/25 15:22 Hydrocodone/Acetaminophen (*Crx) 5-325 Mg Tablet PO 1 tab Q4H PRN Administration Pain Rated 4-6 Albuterol 2.5 mg 01/16/25 22:54 01/23/25 20:56 Albuterol Sulfate Neb 2.5 Mg/3 Ml Inh INHALATION 2.5 mg Q8H PRN Administration shortness of breath or wheezing Alendronate Sodium 70 mg 01/21/25 07:00 01/21/25 06:48 Alendronate Sodium 70 Mg Tablet PO 70 mg Tu@0700 NEIL Administration Ascorbic Acid 500 mg 01/17/25 09:00 01/24/25 09:30 Ascorbic Acid 500 Mg Tablet PO 500 mg DAILY NEIL Administration Aspirin 81 mg 01/17/25 09:00 01/24/25 09:30 Aspirin 81 Mg Enteric Tablet PO 81 mg DAILY NEIL Administration Atorvastatin Calcium 10 mg 01/17/25 09:00 01/24/25 09:30 Atorvastatin 10 Mg Tablet PO 10 mg QAM NEIL Administration Bumetanide 1 mg 01/22/25 18:05 01/24/25 09:30 Bumetanide 1 Mg Tablet PO 1 mg DAILY NEIL Administration Calcitriol 0.25 mcg 01/17/25 09:00 01/24/25 09:30 Calcitriol 0.25 Mcg Capsule PO 0.25 mcg [id number] NEIL Administration Carvedilol 6.25 mg 01/16/25 22:55 01/17/25 10:11 Carvedilol 6.25 Mg Tablet PO Not Given Q12HR NEIL Cyanocobalamin 3,000 mcg 01/17/25 09:00 01/24/25 09:31 Cyanocobalamin 1,000 Mcg Tablet PO 3,000 mcg QAM NEIL Administration Dextrose 12.5 gm 01/16/25 15:05 Dextrose 50% 25 Gm/50 Ml Syringe IV PUSH PRN PRN Hypoglycemia Protocol Empagliflozin 10 mg 01/17/25 09:00 01/24/25 09:31 Empagliflozin 10 Mg Tablet PO 10 mg DAILY NEIL Administration Enoxaparin Sodium 30 mg 01/19/25 09:00 01/19/25 09:01 Enoxaparin 30 Mg/0.3 Ml Syringe SUB-Q 30 mg DAILY NEIL Administration Ferrous Sulfate 325 mg 01/17/25 09:00 01/24/25 09:31 Ferrous Sulfate [address] BY MOUTH 325 mg DAILY NEIL Administration Ferrous Sulfate 325 mg 01/18/25 09:00 01/18/25 10:18 Ferrous Sulfate [address] PO Not Given BID [facility] Fluticasone Propionate 2 spray 01/16/25 22:54 Fluticasone Propionate 0.05% Na Spr 16 Gm Btl (*Bkc) NASAL DAILY PRN allergies Folic Acid 0.8 mg 01/17/25 09:00 01/24/25 09:34 Folic Acid 0.4 Mg Tablet PO 0.8 mg QAM NEIL Administration Glucagon 1 mg 01/16/25 15:05 Glucagon For Inj 1 Mg Vial IM PRN PRN Hypoglycemia Protocol Glucose 15 gm 01/16/25 15:05 01/17/25 08:05 Glucose Oral Gel 15 Gm Of Glucse In 37.5 Gm Tube PO 15 gm PRN PRN Administration Hypoglycemia Protocol Dextrose 1,000 mls @ 100 mls/hr 01/16/25 15:05 Dextrose 5% 1,000 Ml IVPB PRN PRN Hypoglycemia Protocol Insulin Aspart 4 - 8 units 01/16/25 17:00 01/24/25 12:28 Insulin Aspart (*Bkc) 100 Units/Ml SUB-Q Not Given TIDWM [facility] Protocol Insulin Aspart 3 units 01/17/25 08:00 01/24/25 13:00 Insulin Aspart (*Bkc) 100 Units/Ml SUB-Q 3 units TIDWM NEIL Administration Insulin Glargine 15 units 01/16/25 22:55 01/23/25 22:07 Insulin Glargine (*Bkc) 100 Units/Ml SUB-Q 15 units HS NEIL Administration Loperamide HCl 2 mg 01/16/25 22:54 Loperamide Hcl 2 Mg Capsule PO QID PRN loose stool Magnesium Oxide 200 mg 01/17/25 09:00 01/24/25 09:33 Magnesium Oxide 400 Mg Tablet PO 200 mg QAM NEIL Administration Midodrine 5 mg 01/17/25 18:00 01/24/25 13:00 Midodrine Hcl 2.5 Mg Tablet PO 5 mg TID NEIL Administration Midodrine 10 mg 01/17/25 18:00 01/24/25 13:00 Midodrine Hcl 10 Mg Tablet PO 10 mg TID NEIL Administration Multi-Ingred Cream/Lotion/Oil/Oint 1 applic 01/17/25 09:00 01/24/25 09:41 Eucerin Cream 120 Gm Jar TOPICAL 1 applic DAILY NEIL Administration Multivitamins/Calcium 1 tablet 01/17/25 09:00 01/24/25 09:30 Therapeutic Multivitamins/Minerals Tab (*Bkc) PO 1 tablet DAILY NEIL Administration Ondansetron HCl 4 mg 01/16/25 15:05 01/20/25 09:44 Ondansetron Inj 4 Mg/2 Ml Vial IV PUSH 4 mg Q4H PRN Administration Nausea Pantoprazole Sodium 40 mg 01/17/25 09:00 01/24/25 09:41 Pantoprazole 40 Mg Tablet PO 40 mg BID NEIL Administration Polyethylene Glycol 17 gm 01/21/25 15:38 Polyethylene Glycol 3350 17 Gm Powd.Pack PO QAM PRN Constipation Potassium Chloride 10 meq 01/17/25 08:00 01/24/25 09:30 Potassium Chloride 10 Meq Er Tablet PO 10 meq DAILY@0800 NEIL Administration Pyridoxine HCl 100 mg 01/17/25 09:00 01/24/25 09:41 Pyridoxine Hcl 50 Mg Tablet PO 100 mg QAM NEIL Administration Senna 8.6 mg 01/16/25 22:54 Sennosides 8.6 Mg Tablet PO DAILY PRN constipation Senna/Docusate Sodium 1 tab 01/21/25 15:39 Senna/Docusate Sodium Tablet PO HS PRN Constipation Sodium Bicarbonate 650 mg 01/19/25 17:00 01/24/25 09:34 Sodium Bicarbonate Tab 650 Mg Tablet PO 650 mg BID NEIL Administration Spironolactone 50 mg 01/19/25 09:00 01/19/25 08:58 Spironolactone 25 Mg Tablet PO 50 mg QAM NEIL Administration Thiamine HCl 100 mg 01/17/25 09:00 01/24/25 09:31 Thiamine Hcl 100 Mg Tablet PO 100 mg QAM NEIL Administration Radiology Results: ITS Impressions Venous Doppler Study 01/16/25 11:37 IMPRESSION: 1: No lower extremity deep venous thrombosis. Knee X-Ray 01/16/25 12:39 Impression: 1: Medial tibial plateau fracture without significant depression. Recommend correlation with CT or MRI. Abdomen/Pelvis CT 01/16/25 12:46 IMPRESSION: Prominence of the common bile duct with a 4 mm stone in the distal common bile duct. Multiple calcifications have been identified within the ivan hepatis on prior studies, without definitive ductal obstruction, present on the current examination secondary to positioning and technique. Remaining findings within the lower chest, abdomen and pelvis are chronic and unchanged from prior study, as detailed above. Knee CT 01/16/25 13:11 IMPRESSION: 1. Curvilinear subarticular sclerosis underlying the significant portion of the medial tibial plateau without evident acute appearing fracture line or associated marrow edema which could represent either chronic osteochondral lesion/bone infarct or old fracture. Could consider further evaluation with MRI if there is high suspicion for acute fracture. Chest/Abdomen/Pelvis CT 01/20/25 09:00 Impression: Large irregular probable effusion and small left pleural effusion with bibasilar atelectatic change. 12 mm groundglass opacity right upper lobe, which could reflect focal edema or atelectatic change. Correlate clinically or focal pneumonitis. Cirrhotic liver with small amount of ascites and diffuse soft tissue anasarca. Cholelithiasis and choledocholithiasis, unchanged. Extensive atherosclerotic disease, as above. Chest X-Ray 01/20/25 16:57 IMPRESSION: 1. Small bilateral pleural effusions with dependent bibasilar atelectasis and/or pneumonia. 2. Cardia megaly with pericardial calcifications. Thoracentesis Ultrasound 01/20/25 17:15 IMPRESSION: 1. Successful ultrasound-guided thoracentesis yielding 1000 mL of yellow fluid. Abdomen X-Ray 01/21/25 15:21 IMPRESSION: 1. Nonspecific nonobstructive bowel gas pattern. Labs Labs: Laboratory Tests 01/24/25 05:53 01/24/25 05:53 Calcium 8.5 Total Bilirubin 1.3 AST 26 ALT 15 Alkaline Phosphatase 363 H NT-Pro-B Natriuret Pep 92506 H Total Protein 6.0 L Albumin 3.5 Microbiology 01/23/25 06:30 Sputum Acid Fast Bacilli Culture - Preliminary
--- NOTE | 2025-01-24 11:51 | P.PNIM_ITS ---
Progress Note: A&P Assessment and Plan (1) Acute on chronic diastolic (congestive) heart failure: Code(s): I50.33 - Acute on chronic diastolic (congestive) heart failure Status: Acute Assessment and Plan: * BNP 43295 * CXR shown mild interstitial edema and a small right pleural effusion * Last echo from 10/31/24 shown normal LV systolic function with an estimated EF of 60-65%, grade 2 diastolic dysfunction * Nephrology consulted for diuresis, recommend restarting on Lasix * Restarting oral diuretics today. (2) Gallstones: Code(s): K80.20 - Calculus of gallbladder without cholecystitis without obstruction Status: Acute Assessment and Plan: * CT of the abdomen and pelvis showed prominence of common bile duct with a 4 mm stone in the distal common bile duct * GI following and recommends surgical consult * If patient to became symptomatic she would need to be transfer to tertiary care facility where she can be managed by a team of liver specialists and hepatobiliary surgeons who treat patients with this degree of cirrhosis. On assessment patient has no signs or symptoms of choledocholithiasis or cholecystitis * Meld score 20 due to her alcohol liver cirrhosis (3) Fall from ground level: Code(s): W18.30XA - Fall on same level, unspecified, initial encounter Status: Acute Assessment and Plan: * Trauma workup negative for acute fracture * Some imaging redemonstrated a right medial tibial plateau fracture that dated back to October of this year, She was seen by Orthopedic surgery at [facility]. * PT and OT ordered * Continue pain control * Continue fall precautions * Per patient she is wheelchair-bound and can do pivot transfers (4) Pleural effusion: Code(s): J90 - Pleural effusion, not elsewhere classified Status: Acute Assessment and Plan: Status post thoracentesis yielding 1000 mL of yellow fluid. 01/20 Patient states breathing has improved Lungs continue to sound clear with no wheezing or crackles (5) Hypotension: Qualifiers: Hypotension type: unspecified hypotension type Qualified Code(s): I95.9 - Hypotension, unspecified Code(s): I95.9 - Hypotension, unspecified Status: Chronic Assessment and Plan: Stable * Continue Midodrine (6) Chronic kidney disease, stage 3: Qualifiers: Chronic kidney disease stage 3 subtype: stage 3b (GFR 30-44) Qualified Code(s): N18.32 - Chronic kidney disease, stage 3b Code(s): N18.30 - Chronic kidney disease, stage 3 unspecified Status: Chronic Assessment and Plan: Worsening acute on chronic * Nephrology consulted for further assistance with diuresis efforts * Creatinine and BUN downtrending * Cr 2.7 -> 2.44 -> 2.22 -> 1.85 (7) Chronic hyponatremia: Code(s): E87.1 - Hypo-osmolality and hyponatremia Status: Chronic Assessment and Plan: Improving * Continue to monitor (8) Chronic anemia: Code(s): D64.9 - Anemia, unspecified Status: Chronic Assessment and Plan: Iron deficiency anemia Likely secondary to her cirrhosis * Hemoglobin 8.3 * Transfuse if less than 7 * given ferrous sulfate * Iron replacement (9) Insulin dependent type 2 diabetes mellitus: Code(s): E11.9 - Type 2 diabetes mellitus without complications; Z79.4 - senior care (current) use of insulin Status: Chronic Assessment and Plan: Hgb A1C 5.1 on 08/26/2025 * Accu checks AC/HS * High-dose SSI ordered * Continue Latia Johnson, * hypoglycemic protocol in place * Diabetic diet ordered (10) Pressure ulcer of sacral region: Qualifiers: Pressure injury stage: unspecified pressure injury stage Qualified Code(s): L89.159 - Pressure ulcer of sacral region, unspecified stage Code(s): L89.159 - Pressure ulcer of sacral region, unspecified stage Status: Acute Assessment and Plan: * Wound nurse consulted * Continue dressing changes per Wound nurse orders (11) Pressure ulcer, heel, right, unstageable: Code(s): L89.610 - Pressure ulcer of right heel, unstageable Status: Acute Assessment and Plan: * Wound nurse consulted * Continued dressing changes per Wound nursing orders (12) Alcoholic cirrhosis of liver: Qualifiers: Ascites presence: without ascites Qualified Code(s): K70.30 - Alcoholic cirrhosis of liver without ascites Code(s): K70.30 - Alcoholic cirrhosis of liver without ascites Status: Chronic Assessment and Plan: * Cirrhotic liver with small amount of ascites and diffuse soft tissue anasarca Time Spent With Patient Time: Subjective Date/time seen: 01/24/25 11:51 Interval history: Follow-up for acute kidney injury/acute renal failure on chronic kidney disease. 01/24/2025 Patient sitting comfortably in bed at time of examination. Pt denies any chest pain, n/v, or abdominal pain today. Still does endorse some shortness of breath but reports it has improved greatly since yesterday. Still endorses some lower extremity swelling and on exam, bilateral lower extremities do still appear edematous but improved since yesterday. Still 2+ pitting edema, but improved. Plan to see Nephrology today and to continue monitoring down trending kidney blood work with hopeful discharge tomorrow. Will restart on oral diuretics today as well. Review of Systems Review of Systems: All systems reviewed & are unremarkable except as noted in HPI and below Exam Narrative: General: In no acute distress, well nourished Cardiac: Normal S1 and S2. No murmur, gallops or friction rubs, peripheral pulses intact. Respiratory: Lungs mild expiratory wheezing bilaterally, no adventitious lung sounds, currently on room air, tachypnea Gastrointestinal:distended and taunt, non-tender, normoactive bowel sounds. Patient having bowel movements : voiding without difficulty. Extremities: moves all extremities, decreased ROM of LLE/knee, Skin: bilateral jackson erythema, 2+ nonpitting edema Neuro: Alert and oriented x4 Anasarca Const: General: comfortable and no acute distress Other: , female, chronically ill-appearing, nontoxic appearance, obese body habitus. HENMT: Face/Nose/Sinus: Normal nares present Mouth: Yes moist mucous membranes Eyes: General: appearance normal, both eyes and all related structures Sclera: sclerae normal Pupils: Equal, round and reactive pupils present EOM: EOMs intact bilaterally Resp: Effort & Inspection: normal respiratory effort Auscultation: clear to auscultation bilaterally Cardio: Rate: regular rate Rhythm: regular rhythm Other: S1-S2 present without murmur, rub, ectopy GI: Other: Abdomen rounded and tight, nontender. Normoactive bowel sounds in all quadrants. Skin: General skin exam: normal color, no rashes or lesions noted and wounds noted Wounds: wounds noted Other: Pressure wound to buttock region, no active signs of infection. Neuro: Cranial nerves: Yes Equal, round and reactive pupils present Speech: normal speech Motor exam (neuro): 5/5 motor strength present throughout Sensory Exam: normal sensation Other: A&O x4 Extrem: Other: 2+ pitting edema from thighs down bilate rally, symmetric. Jt wraps in place to bilateral calves. Pressure ulcer to right heel, wound bed pink/red with no significant drainage or signs of infection. Large ulceration to sacrum, possible tunneling. Psych: Mental Status: mental status grossly normal Affect: normal affect Other: Good insight and judgment, very pleasant Objective Data Vital Signs Vital Signs: Vital Signs - 24 hr 01/23/25 12:00 01/23/25 14:22 01/23/25 16:00 Temperature 97.2 F L Pulse Rate 91 94 92 Respiratory Rate 14 Blood Pressure 127/59 L Pulse Oximetry 98 Oxygen Delivery Fraction of Inspired Oxygen 01/23/25 20:00 01/23/25 20:15 01/23/25 20:57 Temperature 97.7 F Pulse Rate 94 94 Respiratory Rate 24 H Blood Pressure 137/70 Pulse Oximetry 97 96 Oxygen Delivery Room Air Fraction of Inspired Oxygen 21 01/23/25 20:57 01/23/25 21:04 01/24/25 00:00 Temperature Pulse Rate 86 88 91 Respiratory Rate 20 20 Blood Pressure Pulse Oximetry Oxygen Delivery Fraction of Inspired Oxygen 01/24/25 04:00 01/24/25 04:25 01/24/25 09:43 Temperature 96.8 F L Pulse Rate 92 88 Respiratory Rate 24 H Blood Pressure 122/61 Pulse Oximetry 99 Oxygen Delivery Room Air Fraction of Inspired Oxygen 01/24/25 09:43 Temperature Pulse Rate 90 Respiratory Rate Blood Pressure Pulse Oximetry Oxygen Delivery Fraction of Inspired Oxygen Intake/Output Intake/Output: Intake & Output 01/21/25 01/22/25 01/23/25 01/24/25 23:59 23:59 23:59 23:59 Intake Total 868 1020 1590 550 Output Total 1150 1350 2700 1400 Balance -282 -330 -1110 -850 Meds/Results Medications: Active Medications Generic Name Dose Route Start Last Admin Trade Name Freq PRN Reason Stop Dose Admin Acetaminophen 650 mg 01/16/25 15:05 Acetaminophen 325 Mg Tablet PO Q4H PRN Mild Pain (1-3) or Fever Hydrocodone Bitart/Acetaminophen 1 tab 01/16/25 15:05 01/21/25 15:22 Hydrocodone/Acetaminophen (*Crx) 5-325 Mg Tablet PO 1 tab Q4H PRN Administration Pain Rated 4-6 Albuterol 2.5 mg 01/16/25 22:54 01/23/25 20:56 Albuterol Sulfate Neb 2.5 Mg/3 Ml Inh INHALATION 2.5 mg Q8H PRN Administration shortness of breath or wheezing Alendronate Sodium 70 mg 01/21/25 07:00 01/21/25 06:48 Alendronate Sodium 70 Mg Tablet PO 70 mg Tu@0700 NEIL Administration Ascorbic Acid 500 mg 01/17/25 09:00 01/24/25 09:30 Ascorbic Acid 500 Mg Tablet PO 500 mg DAILY NEIL Administration Aspirin 81 mg 01/17/25 09:00 01/24/25 09:30 Aspirin 81 Mg Enteric Tablet PO 81 mg DAILY NEIL Administration Atorvastatin Calcium 10 mg 01/17/25 09:00 01/24/25 09:30 Atorvastatin 10 Mg Tablet PO 10 mg QAM [facility] Administration Bumetanide 1 mg 01/22/25 18:05 01/24/25 09:30 Bumetanide 1 Mg Tablet PO 1 mg DAILY [facility] Administration Bumetanide 1.5 mg 01/24/25 13:00 Bumetanide Inj 1 Mg/4 Ml Vial IV PUSH 01/24/25 13:01 ONCE ONE Calcitriol 0.25 mcg 01/17/25 09:00 01/24/25 09:30 Calcitriol 0.25 Mcg Capsule PO 0.25 mcg [id number] [facility] Administration Carvedilol 6.25 mg 01/16/25 22:55 01/17/25 10:11 Carvedilol 6.25 Mg Tablet PO Not Given Q12HR [facility] Cyanocobalamin 3,000 mcg 01/17/25 09:00 01/24/25 09:31 Cyanocobalamin 1,000 Mcg Tablet PO 3,000 mcg QAM [facility] Administration Dextrose 12.5 gm 01/16/25 15:05 Dextrose 50% 25 Gm/50 Ml Syringe IV PUSH PRN PRN Hypoglycemia Protocol Empagliflozin 10 mg 01/17/25 09:00 01/24/25 09:31 Empagliflozin 10 Mg Tablet PO 10 mg DAILY [facility] Administration Enoxaparin Sodium 30 mg 01/19/25 09:00 01/19/25 09:01 Enoxaparin 30 Mg/0.3 Ml Syringe SUB-Q 30 mg DAILY NEIL Administration Ferrous Sulfate 325 mg 01/17/25 09:00 01/24/25 09:31 Ferrous Sulfate [address] BY MOUTH 325 mg DAILY NEIL Administration Ferrous Sulfate 325 mg 01/18/25 09:00 01/18/25 10:18 Ferrous Sulfate [address] PO Not Given BID NEIL Fluticasone Propionate 2 spray 01/16/25 22:54 Fluticasone Propionate 0.05% Na Spr 16 Gm Btl (*Bkc) NASAL DAILY PRN allergies Folic Acid 0.8 mg 01/17/25 09:00 01/24/25 09:34 Folic Acid 0.4 Mg Tablet PO 0.8 mg QAM NEIL Administration Glucagon 1 mg 01/16/25 15:05 Glucagon For Inj 1 Mg Vial IM PRN PRN Hypoglycemia Protocol Glucose 15 gm 01/16/25 15:05 01/17/25 08:05 Glucose Oral Gel 15 Gm Of Glucse In 37.5 Gm Tube PO 15 gm PRN PRN Administration Hypoglycemia Protocol Dextrose 1,000 mls @ 100 mls/hr 01/16/25 15:05 Dextrose 5% 1,000 Ml IVPB PRN PRN Hypoglycemia Protocol Insulin Aspart 4 - 8 units 01/16/25 17:00 01/24/25 09:26 Insulin Aspart (*Bkc) 100 Units/Ml SUB-Q Not Given TIDWM NEIL Protocol Insulin Aspart 3 units 01/17/25 08:00 01/24/25 09:43 Insulin Aspart (*Bkc) 100 Units/Ml SUB-Q 3 units TIDWM NEIL Administration Insulin Glargine 15 units 01/16/25 22:55 01/23/25 22:07 Insulin Glargine (*Bkc) 100 Units/Ml SUB-Q 15 units HS NEIL Administration Loperamide HCl 2 mg 01/16/25 22:54 Loperamide Hcl 2 Mg Capsule PO QID PRN loose stool Magnesium Oxide 200 mg 01/17/25 09:00 01/24/25 09:33 Magnesium Oxide 400 Mg Tablet PO 200 mg QAM NEIL Administration Midodrine 5 mg 01/17/25 18:00 01/24/25 09:31 Midodrine Hcl 2.5 Mg Tablet PO 5 mg TID NEIL Administration Midodrine 10 mg 01/17/25 18:00 01/24/25 09:31 Midodrine Hcl 10 Mg Tablet PO 10 mg TID NEIL Administration Multi-Ingred Cream/Lotion/Oil/Oint 1 applic 01/17/25 09:00 01/24/25 09:41 Eucerin Cream 120 Gm Jar TOPICAL 1 applic DAILY NEIL Administration Multivitamins/Calcium 1 tablet 01/17/25 09:00 01/24/25 09:30 Therapeutic Multivitamins/Minerals Tab (*Bkc) PO 1 tablet DAILY NEIL Administration Ondansetron HCl 4 mg 01/16/25 15:05 01/20/25 09:44 Ondansetron Inj 4 Mg/2 Ml Vial IV PUSH 4 mg Q4H PRN Administration Nausea Pantoprazole Sodium 40 mg 01/17/25 09:00 01/24/25 09:41 Pantoprazole 40 Mg Tablet PO 40 mg BID NEIL Administration Polyethylene Glycol 17 gm 01/21/25 15:38 Polyethylene Glycol 3350 17 Gm Powd.Pack PO QAM PRN Constipation Potassium Chloride 10 meq 01/17/25 08:00 01/24/25 09:30 Potassium Chloride 10 Meq Er Tablet PO 10 meq DAILY@0800 NEIL Administration Pyridoxine HCl 100 mg 01/17/25 09:00 01/24/25 09:41 Pyridoxine Hcl 50 Mg Tablet PO 100 mg QAM NEIL Administration Senna 8.6 mg 01/16/25 22:54 Sennosides 8.6 Mg Tablet PO DAILY PRN constipation Senna/Docusate Sodium 1 tab 01/21/25 15:39 Senna/Docusate Sodium Tablet PO HS PRN Constipation Sodium Bicarbonate 650 mg 01/19/25 17:00 01/24/25 09:34 Sodium Bicarbonate Tab 650 Mg Tablet PO 650 mg BID NEIL Administration Spironolactone 50 mg 01/19/25 09:00 01/19/25 08:58 Spironolactone 25 Mg Tablet PO 50 mg QAM NEIL Administration Thiamine HCl 100 mg 01/17/25 09:00 01/24/25 09:31 Thiamine Hcl 100 Mg Tablet PO 100 mg QAM NEIL Administration Radiology Results: ITS Impressions Venous Doppler Study 01/16/25 11:37 IMPRESSION: 1: No lower extremity deep venous thrombosis. Knee X-Ray 01/16/25 12:39 Impression: 1: Medial tibial plateau fracture without significant depression. Recommend ilir elation with CT or MRI. Abdomen/Pelvis CT 01/16/25 12:46 IMPRESSION: Prominence of the common bile duct with a 4 mm stone in the distal common bile duct. Multiple calcifications have been identified within the ivan hepatis on prior studies, without definitive ductal obstruction, present on the current examination secondary to positioning and technique. Remaining findings within the lower chest, abdomen and pelvis are chronic and unchanged from prior study, as detailed above. Knee CT 01/16/25 13:11 IMPRESSION: 1. Curvilinear subarticular sclerosis underlying the significant portion of the medial tibial plateau without evident acute appearing fracture line or associated marrow edema which could represent either chronic osteochondral lesion/bone infarct or old fracture. Could consider further evaluation with MRI if there is high suspicion for acute fracture. Chest/Abdomen/Pelvis CT 01/20/25 09:00 Impression: Large irregular probable effusion and small left pleural effusion with bibasilar atelectatic change. 12 mm groundglass opacity right upper lobe, which could reflect focal edema or atelectatic change. Correlate clinically or focal pneumonitis. Cirrhotic liver with small amount of ascites and diffuse soft tissue anasarca. Cholelithiasis and choledocholithiasis, unchanged. Extensive atherosclerotic disease, as above. Chest X-Ray 01/20/25 16:57 IMPRESSION: 1. Small bilateral pleural effusions with dependent bibasilar atelectasis and/or pneumonia. 2. Cardia megaly with pericardial calcifications. Thoracentesis Ultrasound 01/20/25 17:15 IMPRESSION: 1. Successful ultrasound-guided thoracentesis yielding 1000 mL of yellow fluid. Abdomen X-Ray 01/21/25 15:21 IMPRESSION: 1. Nonspecific nonobstructive bowel gas pattern. Labs Labs: Laboratory Results - last 24 hr 01/20/25 01/23/25 01/23/25 16:43 11:53 17:06 WBC RBC Hgb Hct MCV MCH MCHC RDW Plt Count MPV Immature Gran % (Auto) Neut % (Auto) Lymph % (Auto) [place] % (Auto) Eos % (Auto) Baso % (Auto) Lymph # (Auto) [place] # (Auto) Eos # (Auto) Baso # (Auto) Abs Immat Gran (auto) Absolute Neuts (auto) Absolute Nucleated RBC Nucleated RBC % Sodium Potassium Chloride Carbon Dioxide Anion Gap BUN Creatinine Estim Creat Clear Calc Estimated GFR Glucose POC Capillary Glucose 162 H 157 H Calcium Total Bilirubin AST ALT Alkaline Phosphatase NT-Pro-B Natriuret Pep Total Protein Albumin Pleural Cholesterol see note 01/23/25 01/24/25 01/24/25 20:20 05:53 07:36 WBC 8.2 RBC 2.63 L Hgb 8.3 L Hct 26.4 L MCV 100.4 H MCH 31.6 MCHC 31.4 L RDW 16.5 H Plt Count 256 MPV 10.1 Immature Gran % (Auto) 0.7 H Neut % (Auto) 66.6 Lymph % (Auto) 11.3 L [place] % (Auto) 11.0 H Eos % (Auto) 9.8 H Baso % (Auto) 0.6 Lymph # (Auto) 0.93 [place] # (Auto) 0.9 H Eos # (Auto) 0.8 H Baso # (Auto) 0.1 Abs Immat Gran (auto) 0.06 H Absolute Neuts (auto) 5.5 Absolute Nucleated RBC 0.000 Nucleated RBC % 0.0 Sodium 134 L Potassium 3.7 Chloride 100 Carbon Dioxide 24 Anion Gap 10 BUN 24 H Creatinine 1.85 H Estim Creat Clear Calc 28 Estimated GFR 27 L Glucose 111 H POC Capillary Glucose 198 H 107 H Calcium 8.5 Total Bilirubin 1.3 AST 26 ALT 15 Alkaline Phosphatase 363 H NT-Pro-B Natriuret Pep 72027 H Total Protein 6.0 L Albumin 3.5 Pleural Cholesterol 01/24/25 09:43 WBC RBC Hgb Hct MCV MCH MCHC RDW Plt Count MPV Immature Gran % (Auto) Neut % (Auto) Lymph % (Auto) [place] % (Auto) Eos % (Auto) Baso % (Auto) Lymph # (Auto) [place] # (Auto) Eos # (Auto) Baso # (Auto) Abs Immat Gran (auto) Absolute Neuts (auto) Absolute Nucleated RBC Nucleated RBC % Sodium Potassium Chloride Carbon Dioxide Anion Gap BUN Creatinine Estim Creat Clear Calc Estimated GFR Glucose POC Capillary Glucose 110 H Calcium Total Bilirubin AST ALT Alkaline Phosphatase NT-Pro-B Natriuret Pep Total Protein Albumin Pleural Cholesterol Quality VTE Prophylaxis VTE prophylaxis: pharmacologic ordered
[2025-01-24 12:12] LABS: Glucose Point of Care 144 mg/dl (65-105)
[2025-01-24] MEDS: BUMETANIDE INJ 1 MG/4 ML VIAL 1.5 MG IV PUSH (13:00)
[2025-01-24 16:37] LABS: Glucose Point of Care 196 mg/dl (65-105)
[2025-01-24] MEDS: ALBUTEROL SULFATE NEB 2.5 MG/3 ML INH INHALATION (17:24)
[2025-01-24 20:18] LABS: Glucose Point of Care 306 mg/dl (65-105)
[2025-01-24] MEDS: INSULIN GLARGINE (*BKC) 100 UNITS/ML 15 UNITS SUB-Q (20:57)
[2025-01-25] VITALS (7 sets, daily range): BP systolic 112–132; BP diastolic 58–66; PULSE 92–100; RESP 16–20; TEMP 36.7–37.2; O2SAT 98–99
[2025-01-25 00:49] LABS: Albumin Pleural Fluid 0.8 g/dL; Amylase, Pleural Fluid 20 U/L; Glucose Pleural Fluid 178 mg/dL; LDH Pleural Fluid 63 U/L; Total Protein Pleural Fluid <3.0 g/dL
[2025-01-25 07:07] LABS: Basophils Percent Auto 0.5 % (0.2-1.2); Eosinophils Absolute Auto 0.8 K/mm3 (0-0.3); Eosinophils Percent Auto 9.8 % (0-4.4); Hematocrit 26.9 % (37.0-47.0); Hemoglobin 8.4 g/dL (12.0-15.0); Immature Granulocyte Absolute 0.06 K/mm3 (0.00-0.031); Immature Granulocyte Percent A 0.8 % (0-0.5); Lymphocytes Absolute Auto 0.99 K/mm3 (0.9-3.2); Mean Corpuscular HGB Conc 31.2 g/dl (32-36); Mean Corpuscular Hemoglobin 31.6 pg (26-34); Mean Corpuscular Volume 101.1 fl (80-100); Mean Platelet Volume 10.2 fl (7.4-10.4); Monocytes Absolute Auto 0.7 K/mm3 (0.1-0.6); Monocytes Percent Auto 9.4 % (2.6-8.5); Neutrophils Absolute Auto 5.1 K/mm3 (1.3-6.7); Neutrophils Percent Auto 66.5 % (45.5-73.1); Platelet Count Result 252 k/mm3 (150-375); Red Blood Count 2.66 M/mm3 (4.2-5.4); Red Cell Distribution Width 16.5 % (11.5-14.5); White Blood Count 7.6 K/mm3 (4.5-10.0)
[2025-01-25 07:19] LABS: Alanine Aminotransferase 15 U/L (6-35); Albumin Level 3.4 g/dL (3.5-5.1); Alkaline Phosphatase 328 U/L (38-126); Anion Gap 7 mmol/L (4-12); Aspartate Amino Transferase 27 U/L (14-36); Bilirubin,Total 1.3 mg/dL (0.2-1.3); Blood Urea Nitrogen 22 mg/dL (7-17); Calcium 8.5 mg/dL (8.4-10.2); Carbon Dioxide 27 mmol/L (22-30); Chloride 100 mmol/L (98-107); Estimated CRCL calculation 34 ml/min; Estimated Glomerular Filt Rate 34; Glucose 81 mg/dL (65-110); Potassium 3.5 mmol/L (3.4-5.0); Sodium 134 mmol/L (137-145)
[2025-01-25 07:27] LABS: NT Pro B Type Natriuretic Pept 9200 pg/mL (19.9-100)
[2025-01-25 07:41] LABS: Glucose Point of Care 89 mg/dl (65-105)
[2025-01-25] MEDS: CYANOCOBALAMIN 1,000 MCG TABLET 3000 MCG PO (08:23)
[2025-01-25] MEDS: ASCORBIC ACID 500 MG TABLET PO (08:24)
[2025-01-25] MEDS: MIDODRINE HCL 10 MG TABLET PO ×2 (08:24→13:26)
[2025-01-25] MEDS: FOLIC ACID 0.4 MG TABLET 0.8 MG PO (08:24)
[2025-01-25] MEDS: PANTOPRAZOLE 40 MG TABLET PO (08:25)
[2025-01-25] MEDS: FERROUS SULFATE 325 MG TABLET DR BY MOUTH (08:25)
[2025-01-25] MEDS: SODIUM BICARBONATE TAB 650 MG TABLET PO (08:25)
[2025-01-25] MEDS: MIDODRINE HCL 2.5 MG TABLET 5 MG PO ×2 (08:25→13:26)
[2025-01-25] MEDS: THIAMINE HCL 100 MG TABLET PO (08:25)
[2025-01-25] MEDS: ASPIRIN 81 MG ENTERIC TABLET PO (08:26)
[2025-01-25] MEDS: ATORVASTATIN 10 MG TABLET PO (08:26)
[2025-01-25] MEDS: POTASSIUM CHLORIDE 10 MEQ ER TABLET PO (08:26)
[2025-01-25] MEDS: BUMETANIDE 1 MG TABLET PO (08:26)
[2025-01-25] MEDS: THERAPEUTIC MULTIVITAMINS/MINERALS TAB (*BKC) 1 TABLET PO (08:26)
[2025-01-25] MEDS: MAGNESIUM OXIDE 400 MG TABLET 200 MG PO (08:32)
[2025-01-25] MEDS: PYRIDOXINE HCL 50 MG TABLET 100 MG PO (08:33)
--- NOTE | 2025-01-25 09:45 | P.PNNP_ITS ---
Progress Note: A&P Assessment and Plan (1) CATHRYN (acute kidney injury): Code(s): N17.9 - Acute kidney failure, unspecified Status: Acute Assessment and Plan: * slow improvement * renal function/creatinine at baseline on admission * initial rise in creatinine noted on 01/17 * suspect multifactorial: * diuresis * contrast exposure (CT on 01/16) * relative hypotension * infection(?) * other (?) * evaluation to date noted * repet CT of A/P without obstruction * urine electrolytes non-prerenal * rare urine eosinophils - not sure of significance * mild/moderate proteinuria * CPK low * diuretics were on hold - resumed now * follow trend of repeat labs and UOP (2) Chronic kidney disease, stage 3: Qualifiers: Chronic kidney disease stage 3 subtype: stage 3b (GFR 30-44) Qualified Code(s): N18.32 - Chronic kidney disease, stage 3b Code(s): N18.30 - Chronic kidney disease, stage 3 unspecified Status: Chronic Assessment and Plan: * baseline creatinien runs ~ 1.3 - 1.7mg/dl * this causes her to fluctuate between CKD stage 3A and stage 3B * creatinine has been higher in the due to more aggresive diuresis * presumably related to her CHF, previous HTN (not an issue now), DM, vascular disease, liver disease and need for chronic diuretic therapy (3) Acute on chronic diastolic (congestive) heart failure: Code(s): I50.33 - Acute on chronic diastolic (congestive) heart failure Status: Acute Assessment and Plan: * as noted by clinical exam and imaging to date * elevated BNP * CXR showed mild interstitial edema and a small right pleural effusion * last Echo (Oct 2024) with normal systolic function, estimated EF 60 65%, grade 2 diastolic dysfunction. * known history of liver cirrhosis complicates matters * diuretics were on hold given #1 * resumed on diuretics (bumex) on 01/22 * suspect will need to adjust dosing and frequency based on exam and I/Os * follow daily weights and I/Os (4) Fall from ground level: Code(s): W18.30XA - Fall on same level, unspecified, initial encounter Status: Acute Assessment and Plan: * no acute trauma or injjury * imaging with redemonstrated known right medial tibial plateau fracture (from October of 2024) * PT/OT as tolerated * pain control as needed (5) Chronic anemia: Code(s): D64.9 - Anemia, unspecified Status: Chronic Assessment and Plan: * likely related to CKD and liver disease * PRBC transfusion per protocol * follow trend of H/H (6) Chronic hyponatremia: Code(s): E87.1 - Hypo-osmolality and hyponatremia Status: Chronic Assessment and Plan: * stable at this time * due to CKD, CHF, and liver disease * was on salt tablets * not needed at this time (7) Alcoholic cirrhosis of liver: Qualifiers: Ascites presence: without ascites Qualified Code(s): K70.30 - Alcoholic cirrhosis of liver without ascites Code(s): K70.30 - Alcoholic cirrhosis of liver without ascites Status: Chronic Assessment and Plan: * known history * follows with GI * LFTs normal * continue supportive therapy (8) Diabetes mellitus: Qualifiers: Diabetes mellitus type: type 2 Diabetes mellitus exterminator insulin use: with exterminator use Diabetes mellitus complication status: without complication Qualified Code(s): E11.9 - Type 2 diabetes mellitus without complications; Z79.4 - intermission coordinator (current) use of insulin Code(s): E11.9 - Type 2 diabetes mellitus without complications Status: Chronic Assessment and Plan: * follow accu-cheks * glycemic control per hospitalist Will continue to follow. L Subjective Date/time seen: 01/25/25 09:45 Interval history: Follow-up for acute kidney injury/acute renal failure on chronic kidney disease. Swelling/edema in lower extremities sees to be improving with ongoing diuretic therapy with improved noted in renal function/creatinine (if not back to baseline); noted plans for discharge later today to acute rehab; no other issues/events overnight or earlier this morning; feels reasonably well. Exam 2 Narrative: General: elderly but WD/WN female in NAD Heart: normal S1 and S2; no rub Lungs: clear anteriorly; decreased at bases Abdomen: soft, mild distension, positive bowel sounds Extremities: no cyanosis or clubbing; 1+ edema Skin: chronic skin changes present (MARY ANNE wraps present) Objective Data Vital Signs Vital Signs: Vital Signs Temp Pulse Resp BP Pulse Ox O2 Del Method FiO2 01/25/25 09:31 97 20 98 Room Air 21 01/25/25 08:00 97 01/25/25 08:00 97 20 98 Room Air 01/25/25 05:45 98.9 F 97 20 112/58 L 98 01/25/25 04:00 93 01/25/25 00:00 93 01/24/25 20:20 97 01/24/25 20:00 99.3 F 92 20 137/60 100 01/24/25 17:34 89 20 01/24/25 17:24 91 20 01/24/25 16:00 100 01/24/25 13:55 97.7 F 99 18 142/60 H 100 01/24/25 12:00 99 Intake/Output Intake/Output: Intake & Output 01/22/25 01/23/25 01/24/25 01/25/25 23:59 23:59 23:59 23:59 Intake Total 1020 1590 1030 750 Output Total 1350 2700 2600 1550 Balance -330 -1110 -1570 -800 Meds/Results Medications: Active Medications Generic Name Dose Route Start Last Admin Trade Name Freq PRN Reason Stop Dose Admin Acetaminophen 650 mg 01/16/25 15:05 Acetaminophen 325 Mg Tablet PO Q4H PRN Mild Pain (1-3) or Fever Hydrocodone Bitart/Acetaminophen 1 tab 01/16/25 15:05 01/21/25 15:22 Hydrocodone/Acetaminophen (*Crx) 5-325 Mg Tablet PO 1 tab Q4H PRN Administration Pain Rated 4-6 Albuterol 2.5 mg 01/16/25 22:54 01/24/25 17:24 Albuterol Sulfate Neb 2.5 Mg/3 Ml Inh INHALATION 2.5 mg Q8H PRN Administration shortness of breath or wheezing Alendronate Sodium 70 mg 01/21/25 07:00 01/21/25 06:48 Alendronate Sodium 70 Mg Tablet PO 70 mg Tu@0700 NEIL Administration Ascorbic Acid 500 mg 01/17/25 09:00 01/25/25 08:24 Ascorbic Acid 500 Mg Tablet PO 500 mg DAILY NEIL Administration Aspirin 81 mg 01/17/25 09:00 01/25/25 08:26 Aspirin 81 Mg Enteric Tablet PO 81 mg DAILY NEIL Administration Atorvastatin Calcium 10 mg 01/17/25 09:00 01/25/25 08:26 Atorvastatin 10 Mg Tablet PO 10 mg QAM NEIL Administration Bumetanide 1 mg 01/22/25 18:05 01/25/25 08:26 Bumetanide 1 Mg Tablet PO 1 mg DAILY NEIL Administration Calcitriol 0.25 mcg 01/17/25 09:00 01/24/25 09:30 Calcitriol 0.25 Mcg Capsule PO 0.25 mcg SuMoWeFr@0900 NEIL Administration Carvedilol 6.25 mg 01/16/25 22:55 01/17/25 10:11 Carvedilol 6.25 Mg Tablet PO Not Given Q12HR NEIL Cyanocobalamin 3,000 mcg 01/17/25 09:00 01/25/25 08:23 Cyanocobalamin 1,000 Mcg Tablet PO 3,000 mcg QAM NEIL Administration Dextrose 12.5 gm 01/16/25 15:05 Dextrose 50% 25 Gm/50 Ml Syringe IV PUSH PRN PRN Hypoglycemia Protocol Empagliflozin 10 mg 01/17/25 09:00 01/25/25 10:06 Empagliflozin 10 Mg Tablet PO 10 mg DAILY NEIL Administration Enoxaparin Sodium 30 mg 01/19/25 09:00 01/19/25 09:01 Enoxaparin 30 Mg/0.3 Ml Syringe SUB-Q 30 mg DAILY NEIL Administration Ferrous Sulfate 325 mg 01/17/25 09:00 01/25/25 08:25 Ferrous Sulfate [address] BY MOUTH 325 mg DAILY NEIL Administration Ferrous Sulfate 325 mg 01/18/25 09:00 01/18/25 10:18 Ferrous Sulfate [address] PO Not Given BID [facility] Fluticasone Propionate 2 spray 01/16/25 22:54 Fluticasone Propionate 0.05% Na Spr 16 Gm Btl (*Bkc) NASAL DAILY PRN allergies Folic Acid 0.8 mg 01/17/25 09:00 01/25/25 08:24 Folic Acid 0.4 Mg Tablet PO 0.8 mg QAM NEIL Administration Glucagon 1 mg 01/16/25 15:05 Glucagon For Inj 1 Mg Vial IM PRN PRN Hypoglycemia Protocol Glucose 15 gm 01/16/25 15:05 01/17/25 08:05 Glucose Oral Gel 15 Gm Of Glucse In 37.5 Gm Tube PO 15 gm PRN PRN Administration Hypoglycemia Protocol Dextrose 1,000 mls @ 100 mls/hr 01/16/25 15:05 Dextrose 5% 1,000 Ml IVPB PRN PRN Hypoglycemia Protocol Insulin Aspart 4 - 8 units 01/16/25 17:00 01/25/25 08:27 Insulin Aspart (*Bkc) 100 Units/Ml SUB-Q Not Given TIDWM [facility] Protocol Insulin Aspart 3 units 01/17/25 08:00 01/25/25 08:35 Insulin Aspart (*Bkc) 100 Units/Ml SUB-Q Not Given TIDWM [facility] Insulin Glargine 15 units 01/16/25 22:55 01/24/25 20:57 Insulin Glargine (*Bkc) 100 Units/Ml SUB-Q 15 units HS [facility] Administration Loperamide HCl 2 mg 01/16/25 22:54 Loperamide Hcl 2 Mg Capsule PO QID PRN loose stool Magnesium Oxide 200 mg 01/17/25 09:00 01/25/25 08:32 Magnesium Oxide 400 Mg Tablet PO 200 mg QAM [facility] Administration Midodrine 5 mg 01/17/25 18:00 01/25/25 08:25 Midodrine Hcl 2.5 Mg Tablet PO 5 mg TID [facility] Administration Midodrine 10 mg 01/17/25 18:00 01/25/25 08:24 Midodrine Hcl 10 Mg Tablet PO 10 mg TID [facility] Administration Multi-Ingred Cream/Lotion/Oil/Oint 1 applic 01/17/25 09:00 01/25/25 10:06 Eucerin Cream 120 Gm Jar TOPICAL 1 applic DAILY [facility] Administration Multivitamins/Calcium 1 tablet 01/17/25 09:00 01/25/25 08:26 Therapeutic Multivitamins/Minerals Tab (*Bkc) PO 1 tablet DAILY [facility] Administration Ondansetron HCl 4 mg 01/16/25 15:05 01/20/25 09:44 Ondansetron Inj 4 Mg/2 Ml Vial IV PUSH 4 mg Q4H PRN Administration Nausea Pantoprazole Sodium 40 mg 01/17/25 09:00 01/25/25 08:25 Pantoprazole 40 Mg Tablet PO 40 mg BID NEIL Administration Polyethylene Glycol 17 gm 01/21/25 15:38 Polyethylene Glycol 3350 17 Gm Powd.Pack PO QAM PRN Constipation Potassium Chloride 10 meq 01/17/25 08:00 01/25/25 08:26 Potassium Chloride 10 Meq Er Tablet PO 10 meq DAILY@0800 [facility] Administration Pyridoxine HCl 100 mg 01/17/25 09:00 01/25/25 08:33 Pyridoxine Hcl 50 Mg Tablet PO 100 mg QAM NEIL Administration Senna 8.6 mg 01/16/25 22:54 Sennosides 8.6 Mg Tablet PO DAILY PRN constipation Senna/Docusate Sodium 1 tab 01/21/25 15:39 Senna/Docusate Sodium Tablet PO HS PRN Constipation Sodium Bicarbonate 650 mg 01/19/25 17:00 01/25/25 08:25 Sodium Bicarbonate Tab 650 Mg Tablet PO 650 mg BID NEIL Administration Spironolactone 50 mg 01/19/25 09:00 01/19/25 08:58 Spironolactone 25 Mg Tablet PO 50 mg QAM NEIL Administration Thiamine HCl 100 mg 01/17/25 09:00 01/25/25 08:25 Thiamine Hcl 100 Mg Tablet PO 100 mg QAM NEIL Administration Radiology Results: ITS Impressions Venous Doppler Study 01/16/25 11:37 IMPRESSION: 1: No lower extremity deep venous thrombosis. Knee X-Ray 01/16/25 12:39 Impression: 1: Medial tibial plateau fracture without significant depression. Recommend correlation with CT or MRI. Abdomen/Pelvis CT 01/16/25 12:46 IMPRESSION: Prominence of the common bile duct with a 4 mm stone in the distal common bile duct. Multiple calcifications have been identified within the ivan hepatis on prior studies, without definitive ductal obstruction, present on the current examination secondary to positioning and technique. Remaining findings within the lower chest, abdomen and pelvis are chronic and unchanged from prior study, as detailed above. Knee CT 01/16/25 13:11 IMPRESSION: 1. Curvilinear subarticular sclerosis underlying the significant portion of the medial tibial plateau without evident acute appearing fracture line or associated marrow edema which could represent either chronic osteochondral lesion/bone infarct or old fracture. Could consider further evaluation with MRI if there is high suspicion for acute fracture. Chest/Abdomen/Pelvis CT 01/20/25 09:00 Impression: Large irregular probable effusion and small left pleural effusion with bibasilar atelectatic change. 12 mm groundglass opacity right upper lobe, which could reflect focal edema or atelectatic change. Correlate clinically or focal pneumonitis. Cirrhotic liver with small amount of ascites and diffuse soft tissue anasarca. Cholelithiasis and choledocholithiasis, unchanged. Extensive atherosclerotic disease, as above. Chest X-Ray 01/20/25 16:57 IMPRESSION: 1. Small bilateral pleural effusions with dependent bibasilar atelectasis and/or pneumonia. 2. Cardia megaly with pericardial calcifications. Thoracentesis Ultrasound 01/20/25 17:15 IMPRESSION: 1. Successful ultrasound-guided thoracentesis yielding 1000 mL of yellow fluid. Abdomen X-Ray 01/21/25 15:21 IMPRESSION: 1. Nonspecific nonobstructive bowel gas pattern. Labs Labs: Laboratory Tests 01/25/25 06:26 01/25/25 06:26 Calcium 8.5 Total Bilirubin 1.3 AST 27 ALT 15 Alkaline Phosphatase 328 H NT-Pro-B Natriuret Pep 9200 H Total Protein 6.0 L Albumin 3.4 L Microbiology 01/20/25 16:43 Pleural Fluid Anaerobic Culture - Preliminary 01/20/25 16:43 Pleural Fluid Aerobic Culture - Final 01/23/25 06:30 Sputum Acid Fast Bacilli Culture - Preliminary
--- NOTE | 2025-01-25 09:55 | P.DS_ITS ---
DS: Admitting Diagnosis Discharge Date 01/25/2025 Admitting Diagnosis Acute on chronic diastolic (congestive) heart failure DS: Discharge Diagnosis Discharge Diagnosis (1) Acute on chronic diastolic (congestive) heart failure: Code(s): I50.33 - Acute on chronic diastolic (congestive) heart failure Status: Acute (2) Gallstones: Code(s): K80.20 - Calculus of gallbladder without cholecystitis without obstruction Status: Acute (3) Fall from ground level: Code(s): W18.30XA - Fall on same level, unspecified, initial encounter Status: Acute (4) Pleural effusion: Code(s): J90 - Pleural effusion, not elsewhere classified Status: Acute (5) Hypotension: Qualifiers: Hypotension type: unspecified hypotension type Qualified Code(s): I95.9 - Hypotension, unspecified Code(s): I95.9 - Hypotension, unspecified Status: Chronic (6) Chronic kidney disease, stage 3: Qualifiers: Chronic kidney disease stage 3 subtype: stage 3b (GFR 30-44) Qualified Code(s): N18.32 - Chronic kidney disease, stage 3b Code(s): N18.30 - Chronic kidney disease, stage 3 unspecified Status: Chronic (7) Chronic hyponatremia: Code(s): E87.1 - Hypo-osmolality and hyponatremia Status: Chronic (8) Chronic anemia: Code(s): D64.9 - Anemia, unspecified Status: Chronic (9) Insulin dependent type 2 diabetes mellitus: Code(s): E11.9 - Type 2 diabetes mellitus without complications; Z79.4 - alf (current) use of insulin Status: Chronic (10) Pressure ulcer of sacral region: Qualifiers: Pressure injury stage: unspecified pressure injury stage Qualified Code(s): L89.159 - Pressure ulcer of sacral region, unspecified stage Code(s): L89.159 - Pressure ulcer of sacral region, unspecified stage Status: Acute (11) Pressure ulcer, heel, right, unstageable: Code(s): L89.610 - Pressure ulcer of right heel, unstageable Status: Acute (12) Alcoholic cirrhosis of liver: Qualifiers: Ascites presence: without ascites Qualified Code(s): K70.30 - Alcoholic cirrhosis of liver without ascites Code(s): K70.30 - Alcoholic cirrhosis of liver without ascites Status: Chronic DS: Summary Hospital Course Reason for hospitalization: fall Hospital Course: 69 y/o F with PMH of cirrhosis, alcohol abuse, diastolic dysfunction, diabetes, chronic hyponatremia, chronic anemia, and chronic venous insufficiency with lipodermatosclerosis of the bilateral lower extremities. The patient presents here from home via EMS for further evaluation after a ground level fall. She reports she was attempting to transfer into a wheelchair when she misjudged the distance causing the fall. Fell onto her left side and her left leg was then bent an awkward position. She did not have a head strike or loss of consciousness. She was unable to get herself up off the ground due to weakness and pain in her left lower extremity. EMS was called for a lift assist, patient declined transport at that time. She currently has home health two days per week, they arrived today and noted she was unable to bear weight on the left leg prompting a 2nd call to EMS. She has a recent history of a closed medial tibial plateau fracture on 11/11/2024. She was originally placed in a knee immobilizer in full extension and was residing at a [facility] for rehab. She followed up with her orthopedist through [facility] on 12/26/2024, during this visit her knee immobilizer was discontinued and she was made weight-bearing as tolerated and instructed to continue outpatient physical therapy. She was then discharged home from [facility] on 01/07. Since arrival back home she reports she has began having increasing lower extremity edema and swelling in her abdomen. She called her physical design engineer earlier this week and reported these findings, they recommended increasing her Lasix from 40 mg -> 80 mg x4 days (tomorrow, Monday is day 4). She denies associated chest pain, shortness of b reath, leg pain, or abdominal pain. She additionally reports a sacral pressure ulcer and a ulceration to her right heel which she has followed with wound care previously. Denies drainage, fever, chills, or body aches. She also followed with vascular outpatient on 12/26/2024 who attributed swelling to uncontrolled edema, chronic venous insufficiency, and her being minimally ambulatory versus peripheral artery disease. Recommended continued compression and local wound care. Initial VS at presentation: 97.6? F, HR 80, RR 15, 88/46, and 100% on RA. ED workup showed: No leukocytosis, hemoglobin 8.1 (at baseline), INR 1.3, sodium 131, creatinine 1.45 and GFR 36 (at baseline), CRP 5.2, BNP 8740, albumin 2.8, and UA showed 1+ glucose. Ultrasound of the BLE showed no DVT. CXR showed mild interstitial edema and small right pleural effusion. Knee XR showed a medial tibial plateau fracture without significant depression. CT of the abdomen/pelvis showed prominence of the common bile duct with a 4 mm stone in the distal common bile duct, multiple calcifications had been identified within the ivan hepaticus on prior studies without definitive ductal obstruction and present on the current examination secondary to positioning and technique, remaining findings within the lower chest abdomen and pelvis are chronic and unchanged (see report for details). Knee CT showed [place] near subarticular sclerosis underlying the significant portion of the medial tibial plateau without evidence of acute appearing fracture line or associated marrow edema which could represent either chronic osteochondral lesions/bone infarct or old fracture. General surgery and GI were consulted regarding gallbladder findings. They discussed that there was no evidence of acute cholecystitis, that there was no need for emergent surgical management and recommended observation of the gallstones. Nephrology consulted regarded acute renal failure on chronic kidney disease. On 01/20 she started developing worsening kidney function despite being on oral diuretics. CT chest/abd/pelvis also showed large pleural effusion. Thoracentesis performed by nephrology and tolerated procedure well. Breathing/respiratory status improved greatly after the thoracentesis. From that point, kidney function also was found to be improving. BNP started being trended on 01/22 and decreased from 67925 to 9200 on 01/25. Creatinine also decreased from 2.7 to 1.52 on 01/25. She appears to be responding to Bumex diuretic therapy. Labwork otherwise stable and vital signs have remained stable on room air. She also reported great improvement of her shortness of breath. Physical exam is also reassuring. Pt otherwise stable for discharge at this time with continuation of her diuretic therapy and close follow-up with her PCP. Pt am enable to this plan. Time Spent with Patient Time attestation: Total time spent providing and/or coordinating discharge services:45 Exam Narrative: General: In no acute distress, well nourished Cardiac: Normal S1 and S2. No murmur, gallops or friction rubs, peripheral pulses intact. Respiratory: Lungs mild expiratory wheezing bilaterally, no adventitious lung sounds, currently on room air, tachypnea Gastrointestinal:distended and taunt, non-tender, normoactive bowel sounds. Patient having bowel movements : voiding without difficulty. Extremities: moves all extremities, decreased ROM of LLE/knee, Skin: bilateral jackson erythema, 1+ nonpitting edema Neuro: Alert and oriented x4 Anasarca Const: General: comfortable and no acute distress Other: , female, chronically ill-appearing, nontoxic appearance, obese body habitus. HENMT: Face/Nose/Sinus: Normal nares present Mouth: Yes moist mucous membranes Eyes: General: appearance normal, both eyes and all related structures Sclera: sclerae normal Pupils: Equal, round and reactive pupils present EOM: EOMs intact bilaterally Resp: Effort & Inspection: normal respiratory effort Auscultation: clear to auscultation bilaterally Cardio: Rate: regular rate Rhythm: regular rhythm Other: S1-S2 present without murmur, rub, ectopy GI: Other: Abdomen rounded and tight, nontender. Normoactive bowel sounds in all quadrants. Skin: General skin exam: normal color, no rashes or lesions noted and wounds noted Wounds: wounds noted Other: Pressure wound to buttock region, no active signs of infection. Neuro: Cranial nerves: Yes Equal, round and reactive pupils present Speech: normal speech Motor exam (neuro): 5/5 motor strength present throughout Sensory Exam: normal sensation Other: A&O x4 Extrem: Other: 1+ pitting edema from thighs down bilate rally, symmetric. Psych: Mental Status: mental status grossly normal Affect: normal affect Other: Good insight and judgment, very pleasant DS: Data Data Completed and Pending Completed studies during hospitalization: Pending at discharge 01/20/25 11:51 Cytology [PTH] Routine Labs on day of discharge: Labs from last 24 hours 01/25/25 01/25/25 01/24/25 07:38 06:26 19:58 WBC 7.6 RBC 2.66 L Hgb 8.4 L Hct 26.9 L MCV 101.1 H MCH 31.6 MCHC 31.2 L RDW 16.5 H Plt Count 252 MPV 10.2 Immature Gran % (Auto) 0.8 H Neut % (Auto) 66.5 Lymph % (Auto) 13.0 L Mccormick % (Auto) 9.4 H Eos % (Auto) 9.8 H Baso % (Auto) 0.5 Lymph # (Auto) 0.99 Mccormick # (Auto) 0.7 H Eos # (Auto) 0.8 H Baso # (Auto) 0.0 Abs Immat Gran (auto) 0.06 H Absolute Neuts (auto) 5.1 Absolute Nucleated RBC 0.000 Nucleated RBC % 0.0 Sodium 134 L Potassium 3.5 Chloride 100 Carbon Dioxide 27 Anion Gap 7 BUN 22 H Creatinine 1.52 H Estim Creat Clear Calc 34 Estimated GFR 34 L Glucose 81 POC Capillary Glucose 89 306 H Calcium 8.5 Total Bilirubin 1.3 AST 27 ALT 15 Alkaline Phosphatase 328 H NT-Pro-B Natriuret Pep 9200 H Total Protein 6.0 L Albumin 3.4 L Pleural Total Protein Pleural Albumin Pleural LDH Pleural Glucose Pleural Amylase Pleural Triglycerides 01/24/25 01/24/25 01/20/25 16:27 11:31 16:43 WBC RBC Hgb Hct MCV MCH MCHC RDW Plt Count MPV Immature Gran % (Auto) Neut % (Auto) Lymph % (Auto) Mccormick % (Auto) Eos % (Auto) Baso % (Auto) Lymph # (Auto) Mccormick # (Auto) Eos # (Auto) Baso # (Auto) Abs Immat Gran (auto) Absolute Neuts (auto) Absolute Nucleated RBC Nucleated RBC % Sodium Potassium Chloride Carbon Dioxide Anion Gap BUN Creatinine Estim Creat Clear Calc Estimated GFR Glucose POC Capillary Glucose 196 H 144 H Calcium Total Bilirubin AST ALT Alkaline Phosphatase NT-Pro-B Natriuret Pep Total Protein Albumin Pleural Total Protein <3.0 Pleural Albumin 0.8 Pleural LDH 63 Pleural Glucose 178 Pleural Amylase 20 Pleural Triglycerides 11 Preliminary micro results at discharge 01/20/25 16:43 Anaerobic Culture - Preliminary Pleural Fluid 01/23/25 06:30 Acid Fast Bacilli Culture - Preliminary Sputum 01/20/25 16:43 Acid Fast Bacilli Culture - Preliminary Pleural Fluid Imaging Radiologist's impression: XR abdomen/kub 1V 01/21/25 IMPRESSION: 1. Nonspecific nonobstructive bowel gas pattern. US thoracentesis w imaging 01/20/25 IMPRESSION: 1. Successful ultrasound-guided thoracentesis yielding 1000 mL of yellow fluid. XR chest 2V post thora IMPRESSION: 1. Small bilateral pleural effusions with dependent bibasilar atelectasis and/or pneumonia. 2. Cardia megaly with pericardial calcifications. CT chest abdomen pelvis wo con Impression: Large irregular probable effusion and small left pleural effusion with bibasilar atelectatic change. 12 mm groundglass opacity right upper lobe, which could reflect focal edema or atelectatic change. Correlate clinically or focal pneumonitis. Cirrhotic liver with small amount of ascites and diffuse soft tissue anasarca. Cholelithiasis and choledocholithiasis, unchanged. Extensive atherosclerotic disease, as above. CT knee LT wo con 01/16/25 IMPRESSION: 1. Curvilinear subarticular sclerosis underlying the significant portion of the medial tibial plateau without evident acute appearing fracture line or associated marrow edema which could represent either chronic osteochondral lesion/bone infarct or old fracture. Could consider further evaluation with MRI if there is high suspicion for acute fracture. Discharge Plan Discharge Attending physician on discharge: Abhay Ortega Consulting providers: Shane Ann; Sarwat Conti Discharging Clinician: Abhay Ortega Anticipated Discharge Date/Time: 01/25/25 09:42 Patient Disposition: Hospital Swing Bed Activity: as tolerated Diet: as tolerated and heart healthy Wound Care Instructions: follow printed instructions and change dressing daily Discharge Instructions: Care Coordination: Patient to have [facility] resume services. Their phone number is [phone] if you have any questions; they will contact you to schedule their first visit. Wash right heel and buttocks wound with soap and water daily. Then apply Silver gel to ulcers on Right heel and Left buttocks, cover with a dry dressing. Patient to wear compression stockings to lower extremities to reduce and control her edema. Patient has Velcro compression wraps. Take medications as prescribed Maintain a cardiac diet, 2 g sodium, do not over hydrate Remain active Monitor urine output Daily weights, if you gain more than 3 lb within 1 day or 5 lb in 1 week notify your primary care provider If you develop chest pain, shortness breath, fever greater than 101, nausea, or vomiting notify a clinician or come to the emergency department Follow-up with primary care provider within 1-2 weeks Thank you for choosing [facility] for your healthcare needs Patient Instructions: Antibiotic Form, Aspirin (By mouth) Patient Language: Croatian Stand Alone Forms: General Discharge Information Follow-up/Referrals: Ghanshyam Ruiz APRN [Primary Care Provider] - Discharge Medications: New bumetanide 1 mg tablet 1 mg PO DAILY Qty: 30 0RF Continued carvedilol 6.25 mg tablet 6.25 mg PO Q12H Qty: 60 5RF Rx Instructions: must administer with a meal/food pyridoxine (vitamin B6) 100 mg tablet 100 mg PO DAILY mecobalamin (vitamin B12) 1,000 mcg tablet,chewable 3,000 mcg PO DAILY aspirin 81 mg tablet,delayed release (DR/EC) 81 mg PO DAILY ascorbate calcium (vitamin C) 500 mg tablet 500 mg PO DAILY folic acid 800 mcg tablet 0.8 mg PO DAILY fluticasone propionate 50 mcg/actuation [place],Suspension 1 spray INTRANASAL DAILY PRN (Reason: allergies) thiamine HCl (vitamin B1) [Vitamin B-1] 100 mg Tablet 100 mg PO QAM Qty: 30 0RF magnesium oxide 400 mg (241.3 mg magnesium) tablet 250 mg PO QAM Jardiance 10 mg Tablet 10 mg PO DAILY Qty: 30 0RF albuterol sulfate 2.5 mg /3 mL (0.083 %) solution for nebulization 2.5 mg inhalation Q8H PRN (Reason: shortness of breath or wheezing) lanolin nokftbx-cg-t.pet-ceres Cream 1 applic topical DAILY Rx Instructions: apply cream to BLE daily and wrap left leg with kerlix daily and prn ferrous sulfate [Leonard-Time] 325 mg (65 mg iron) tablet 325 mg PO DAILY loperamide [Anti-Diarrheal (loperamide)] 2 mg capsule 2 mg PO QID PRN (Reason: loose stool) midodrine 10 mg tablet 10 mg PO TID PRN (Reason: dizziness or vertigo) Rx Instructions: do not give last dose of day after 6PM or within 4 hrs of bedtime for SBP <100 ondansetron 4 mg tablet,disintegrating 4 mg PO Q6H PRN (Reason: nausea and vomiting) pantoprazole 40 mg tablet,delayed release (DR/EC) 40 mg PO BID sennosides [senna] 8.6 mg tablet 8.6 mg PO DAILY PRN (Reason: constipation) insulin lispro [Humalog KwikPen Insulin] 100 unit/mL insulin pen 3 unit SUB-Q TID Rx Instructions: before each meal. hold if bs <100 Multiple Vitamin, Womens Tablet 1 tablet PO DAILY Qty: 30 0RF (DME) blood sugar diagnostic Strip See Rx Instructions .ROUTE .MEDSUPPLY Qty: 360 1RF Rx Instructions: use to test 4 times a day alendronate 70 mg tablet 70 mg PO WEEKLY Qty: 12 3RF Rx Instructions: MONDAY atorvastatin 10 mg tablet 10 mg PO QAM Qty: 90 1RF Rx Instructions: TAKE 1 TABLET BY MOUTH DAILY calcitriol 0.25 mcg capsule 0.25 mcg PO 4XW Qty: 16 6RF Rx Instructions: administer on Mondays, Wednesdays, Fridays, and Monday (DME) pen needle, diabetic [BD Muriel 2nd Gen Pen Needle] 32 gauge x 5/32 needle See Rx Instructions .ROUTE .MEDSUPPLY Qty: 360 1RF Rx Instructions: Use to inject insulin up to 4 times daily (DME) Dexcom G7 Sensor Device See Rx Instructions .Route Qty: 3 5RF Rx Instructions: As directed potassium chloride 10 mEq capsule, extended release 10 meq PO DAILY Qty: 90 1RF insulin glargine [Lantus Solostar U-100 Insulin] 100 unit/mL (3 mL) insulin pen See Rx Instructions .ROUTE .COMPLEX Qty: 15 1RF Dose Instruction: ADMINISTER 15 UNITS UNDER THE SKIN EVERY DAY AT BEDTIME Rx Instructions: ADMINISTER 15 UNITS UNDER THE SKIN EVERY DAY AT BEDTIME Held spironolactone 25 mg Tablet 25 mg PO QAM Qty: 30 0RF Hold Instructions: Resume on 02/01/25. Discontinued furosemide 40 mg tablet 40 mg PO DAILY Santyl 250 unit/gram ointment 1 applic topical DAILY Rx Instructions: 1x1.2 necrosis on right heel. cleanse with nss or wound cleanser, gently pat dry and apply santyl and cover with calcium alginate and border foam dressing daily and prn Santyl 250 unit/gram ointment 1 applic topical DAILY Rx Instructions: 7x3 necrosis left buttocks. Cleanse with nss. Gently pat dry and apply santyl then calcium alginate and cover with a foam dressing daily and prn. acyclovir [Zovirax] 5 % cream 1 applic topical DAILY Rx Instructions: apply to rash tacrolimus 0.03 % Ointment 1 applic TOPICAL BID Date of admission: 01/17/25 14:23 Primary Care Provider: Ghanshyam Ruiz Admitting Provider: Johnathan Streeter Attending physician on admission: Abhay Ortega Condition: Guarded Prognosis Quality VTE Prophylaxis VTE prophylaxis: pharmacologic ordered Hospitalist MIPS Heart Failure (Exclusion) Patient has history of Heart Transplant or Left Ventricular Assistive Device?: No IF YES, STOP HERE Heart Failure (Qualifier) Patient has current or prior documentation of LVEF less than or equal to 40%, or mod/servere depressed LVSF?: No IF NO, STOP HERE
[2025-01-25] MEDS: EMPAGLIFLOZIN 10 MG TABLET PO (10:06)
[2025-01-25] MEDS: EUCERIN CREAM 120 GM JAR 1 APPLIC TOPICAL (10:06)
[2025-01-25 11:31] LABS: Glucose Point of Care 155 mg/dl (65-105)
== END 2025-01-25 15:25 | disposition swing bed (61) | DRG 291 ==
LOC: ANHED 14:03 → ANH3MEDSUR 15:47
PROVIDERS: Internal Medicine Nephrology; Nurse Practitioner Acute Care; Student in an Organized Health Care Education/Training Program; Admitting Provider Internal Medicine; Emergency Provider Physician Assistant; PCP Nurse Practitioner; Visit Provider Physician Assistant
DX: I13.0 Hypertensive heart and chronic kidney disease with heart failure and stage 1 through stage 4 chronic kidney disease, or unspecified chronic kidney disease (principal); I50.33 Acute on chronic diastolic (congestive) heart failure; L89.153 Pressure ulcer of sacral region, stage 3; E87.1 Hypo-osmolality and hyponatremia; J90 Pleural effusion, not elsewhere classified; N17.9 Acute kidney failure, unspecified; N18.32 Chronic kidney disease, stage 3b; K80.70 Calculus of gallbladder and bile duct without cholecystitis without obstruction; W19.XXXA Unspecified fall, initial encounter; I95.1 Orthostatic hypotension; D63.1 Anemia in chronic kidney disease; E11.22 Type 2 diabetes mellitus with diabetic chronic kidney disease; E78.5 Hyperlipidemia, unspecified; F10.20 Alcohol dependence, uncomplicated; G47.33 Obstructive sleep apnea (adult) (pediatric); I87.2 Venous insufficiency (chronic) (peripheral); K70.31 Alcoholic cirrhosis of liver with ascites; K70.30 Alcoholic cirrhosis of liver without ascites; K21.9 Gastro-esophageal reflux disease without esophagitis; L89.610 Pressure ulcer of right heel, unstageable; Z79.82 Long term (current) use of aspirin; Z79.84 Long term (current) use of oral hypoglycemic drugs; Z79.4 Long term (current) use of insulin; Z98.41 Cataract extraction status, right eye; Z98.42 Cataract extraction status, left eye; Z96.641 Presence of right artificial hip joint; Z87.891 Personal history of nicotine dependence
CPT/HCPCS: 32555; 36415; 71046; 71250; 73564; 73700; 74018; 74176; 74177; 80053; 80069; 81003; 81050; 82042; 82150; 82274; 82306; 82550; 82570; 82945; 82948; 83036; 83540; 83550; 83605; 83615; 83880; 83970; 83986; 84132; 84156; 84157; 84300; 84311; 84478; 84540; 85025; 85610; 85652; 85730; 85999; 86140; 87015; 87070; 87075; 87116; 87205; 87206; 88108; 88305; 89051; 93005; 93970; 94640; 96365; 96366; 96372; 96375; 96376; 97110; 97161; 97165; 97530; 97535; 99285; A9270; G0378; J1650; J1756; J1815; J1938; J1939; J2405; J7050; P9045; P9047; Q9967

== ENCOUNTER 2025-01-25 16:10 | Inpatient (IN) | payer MEDICARE, SELFPAY ==
--- NOTE | ~2025-01-25 | CT_ITS ---
EXAMINATION: CT chest abdomen pelvis wo con DATE: 01/27/2025 09:17 INDICATION: Ascites and pleural effusion. Dyspnea on exertion. TECHNIQUE: Computed tomography (CT) of the chest, abdomen, and pelvis was performed without intraveno us contrast. Automated exposure control and iterative reconstruction technique were employed. The dos e-length product was 887.66 mGy-cm. COMPARISON: Chest CT studies dated 01/20/2025 and 10/31/[address] abdomen and pelvis dated 01/16/2025 FINDINGS: CHEST CT: Moderate-sized posterior layering right pleural effusion with partial collapse of the right lower lob e and mild dependent atelectasis in the right middle lobe. Small left pleural effusion with dependent compressive atelectasis in the posterior left lower lobe. Unchanged 1.3 x 0.8 cm and 7 mm groundglas s nodules in the posterior right upper lobe. Unchanged mild linear discoid atelectasis/scarring at th e superior segment of the left lower lobe. New tree-in-bud opacities with multiple tiny centrilobular nodules in the left upper lobe consistent with endobronchial spread of disease. Calcified nodule in the lingula and calcified mediastinal lymph nodes consistent with old granulomatous disease. Heart si ze is normal. Chronic small pericardial effusion with scattered pericardial calcifications. At the sc lerotic coronary artery calcifications. Aortic valve and mitral annular calcification. Thoracic aorta is normal in caliber. No pathologically enlarged thoracic lymphadenopathy. ABDOMEN/PELVIS CT: Nodular cirrhotic liver. Small sliding-type hiatal hernia with small gastroesophageal varices and whi ch along with mild to splenomegaly measuring 13.6 cm maximal length is consistent with secondary port al venous hypertension. There are few small gallstones the dependent aspect of the normal-appearing g allbladder. There are couple small unchanged calcifications at the head of the pancreas which appear positioned posterior to the normal common bile duct and would favor sequela of of chronic pancreatiti s over nonobstructing choledocholithiasis. Bilateral adrenal glands are normal. Mild likely age-relat ed diffuse bilateral renal atrophy. There is calcified atherosclerosis of the aorta and many of the o ther arteries. There is mild colonic diverticulosis with a sigmoid predominance. There is no adjacen t inflammatory change to suggest diverticulitis. Small bowel and appendix are normal. Bladder is nor mal. The uterus is not identified and has likely been surgically resected. There is been some improve ment in extensive body wall edema at the abdomen and pelvis extending into the bilateral thighs. No f ree intraperitoneal gas or fluid. No pathologically enlarged abdominal or pelvic lymphadenopathy. Rig ht total hip arthroplasty. Mild lumbar and lower thoracic spondylosis with multiple chronic compressi on and burst fractures throughout the lumbar spine, unchanged since 10/31/2024. Additional old healed fracture of the left pubic body. IMPRESSION: 1. Moderate-sized right and small left pleural effusion with associated compressive atelectasis in th e dependent lungs. 2. New tree-in-bud opacities in the left upper lobe consistent with endobronchial spread of disease m ost likely pneumonia. 3. A couple groundglass nodules in the right upper lobe the largest measuring 1.1 cm. Recommend 6 mon th follow-up low-dose noncontrast chest CT. 4. Chronic small pericardial effusion with pericardial calcifications. 5. Cirrhosis with stigmata of secondary portal venous hypertension including gastroesophageal varices and splenomegaly. 6. Small sliding-type hiatal hernia. 7. Cholelithiasis and possible nonobstructing choledocholithiasis versus pancreatic parenchymal calci fications as sequela of chronic pancreatitis. 8. Improvement in prior body wall edema and resolution of prior ascites. Reviewed, dictated and finalized at location A. IMPRESSION: 1. Moderate-sized right and small left pleural effusion with associated makayla sive atelectasis in the dependent lungs. 2. New tree-in-bud opacities in the left upper lobe consistent with endobronchi al spread of disease most likely pneumonia. 3. A couple groundglass nodules in the right upper lobe the largest measuring 1 .1 cm. Recommend 6 month follow-up low-dose noncontrast chest CT. 4. Chronic small pericardial effusion with pericardial calcifications. 5. Cirrhosis with stigmata of secondary portal venous hypertension including ga stroesophageal varices and splenomegaly. 6. Small sliding-type hiatal hernia. 7. Cholelithiasis and possible nonobstructing choledocholithiasis versus pancre atic parenchymal calcifications as sequela of chronic pancreatitis. 8. Improvement in prior body wall edema and resolution of prior ascites.
--- NOTE | ~2025-01-25 | XR_ITS ---
CHEST RADIOGRAPH, PA AND LATERAL CLINICAL HISTORY: pleural effusion . COMPARISON: CT examination of the chest abdomen and pelvis dated 01/27/2025 TECHNIQUE: PA and lateral views of the chest. FINDINGS The cardiomediastinal silhouette is partially obscured. Redemonstration of a large right-sided pleural effusion, with adjacent compressive atelectasis. The left hemithorax is clear. IMPRESSION: Large right-sided pleural effusion with adjacent compressive atelectasis Reviewed, dictated and finalized at location A.
--- OUTSIDE RECORDS SUMMARY | 2025-01-25 16:14 | XMS_ITS ---
Author Organization [facility] Address [address] [place] [address] Care Team Providers Care Meat Grader Name Role Phone Ramesh Smith Primary Care Provider Dr. 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 confirmed Problem Polyneuropathy due to type 2 diabetes mellitus (633568491) Type 2 diabetes mellitus with diabetic polyneuropathy (E11.42) Active confirmed Problem Neurogenic claudication (754092381) Spinal stenosis, lumbar region with neurogenic claudication (M48.062) Active confirmed Problem Abnormal gait (90798134) Other abnormalities of gait and mobility (R26.89) Active confirmed Problem Malaise (614237226) Other malaise (R53.81) Active confirmed Problem Orthostatic hypotension (96068230) Orthostatic hypotension (I95.1) Active confirmed Problem Hypo-osmolality and or hyponatremia (823453292) Hypo-osmolality and hyponatremia (E87.1) Active confirmed Vital Signs Blood pressure systolic 130 mm Hg 08/30/20 23 Blood pressure diastolic 85 mm Hg 023 Respiratory Rate 16 /min 08/30/2023 Oximetry 100 % 08/30/2023 Height 65 in 08/30/2023 Weight 192 lbs 08/30/2023 BMI 31.95 kg/m2 08/30/2023 Encounters Encounter Location Date Provider Diagnosis [facility] [address] [place] [id number] 08/30/2023 Juan Alvarado Alcohol dependence, uncomplicated F10.20 [...] advised her to discuss this with her Smoked Meat Preparer as too much increased free water intake [...] advised her to discuss this with her Smoked Meat Preparer as too much increased free water intake could worsen her hyponatremia Hypo-osmolality and hyponatremia Follow- up with Nephrology Next Appt Details Follow Up: prn, Reason: Eval uation and Management Progress Notes * Lizzeth JOYhDOB:1955 (68 yo F)Acc No.[id number]:08/30/2023 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 She was referred by Dr. Harley at [facility]. She is a 68 year [...] parents. 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 H ypo-osmolality and hyponatremia Notes: Follow-up with Nephrology * Procedure Codes: G 8427 DOC MEDS VERIFIED W/PT OR [id number] FLU IMMUNIZE ORDER/[id number] ACP DISCUSS/DSCN MKR DOCD, Modifiers: 8P G9991 Pneum vax admin 60+G8417 BMI >=30 CALCUATE [id number] TOBACCO [id number]-[id number] BP SCR PRFRM RCMDD DEFIND SCR INTVL * Preventive Medicine: T his was a 60 minute visit with time spent in reviewing prior records, evaluation and management, and counseling. * Follow Up: p rn (Reason: Evaluation and Management) * Billing Information: * Visit Code: 53332 Office Visit, New Pt., Level 5. Modifiers: 25 * Procedure Codes: G8427 DOC MEDS VERIFIED W/PT OR RE. G8482 FLU IMMUNIZE ORDER/ADMIN. 1123F ACP DISCUSS/DSCN MKR DOCD. Modifiers: 8P G9991 Pneum vax admin 60+. G8417 BMI >=30 CALCUATE W/FOLLOWUP. 1036F TOBACCO NON-USER. G8783 BP SCR PRFRM RCMDD DEFIND SCR INTVL. * [facility] Sign off status: Completed true * Provider: Sadia Alvarado MD Date: 10/30/2022 Generated for Mare kathleen/Faxing/eTransmitting on: 0 01/25/2025 04:14 PM CDT History and Physical Notes * HPI (History of Present Illness) Category Sub-Category Detail Notes Category Not es *Introduction I had the pleasure o f seeing Lou Joy, who presented for evaluation of the above complaints. She was referred by Dr. Harley at [facility]. She is a 68 year [...]
--- OUTSIDE RECORDS SUMMARY | 2025-01-25 16:14 | XMS_ITS | Clinical Summary ---
Author Organization [facility] Address [address] [place] [address] Phone Care Team Providers Care Grader Tender Name Role Phone Dariel Horvath DO Primary Care Provider [phone] Allergies Active Allergy Reactions Criticality Noted Date Comments Codeine Unknown,Headache 02/27/2019 Medications aspirin (ST MAGGY) 81 MG EC tablet TK 1 T PO QD 0 Active atorvastatin (LIPITOR) 10 MG tablet TK 1 T PO D 0 Active clobetasol (TEMOVATE) 0.05 % cream NEDRA EXT AA BID FOR 2 WKS 0 Active MAGNESIUM-OXID E 400 (241.3 Mg) MG tablet TK 1/2 T PO Q 12 H 02/29/20 2 0 Active BD PEN NEEDLE KORIN U/F 32G X 4 MM misc USE TO INJECT INSULIN QID 0 Active LANTUS SOLOSTAR 100 UNIT/ML injection INJ 10 UNITS QAM AND 20 UNITS QPM 0 Active ONETOUCH ULTRA test strip TEST BLOOD SUGAR QID 0 Active folic acid (FOLVITE) 1 MG tablet TK 1 T PO D 0 Active thiamine (VITAMIN B-1) 100 MG tablet TK 1 T PO QAM FOR 30DAYS UNTIL FURTHER RECOMMENDATION FROM YOUR PCP 0 Active losartan (COZAAR) 100 MG tablet Take 100 mg by mouth 1 (one) time each day 1 Active furosemide (LASIX) 20 MG tablet Take 0.5 tablets (10 mg total) by mouth 2 (two) times a day 30 tablet 11 1 Active labetalol (NORMODYNE) 100 MG tablet Take 100 mg by mouth 2 (two) times a day 2 Active sodium chloride 1 g tablet Take 1 tablet (1 g total) by mouth 1 (one) time each day in the morning 90 tablet 3 2 Active alendronate (FOSAMAX) 70 MG tablet Take 70 mg by mouth 1 (one) time per week 2 Active dilTIAZem SR (CARDIZEM SR) 60 MG 12 hr capsule Take 60 mg by mouth 2 (two) times a day 2 Active Active Problems Problem Noted Date Diagnosed [...] disease Neuropathy Gastroesophageal reflux disease Osteoarthritis Immunizations Immunization Administration Dates Next Due Influenza, Injectable, Quadrivalent [...] drink = 0.6 oz pur e alcohol) Comments Unknown Sex and Gender Information Value Date Recorded Sex Assigned at Not on file Legal Sex Female 2:31 PM MDT Gender Identity Not on file Sexual Orientation [...] and Medium Risk (2 of 3 - PPSV23) 09/24/2020 09/24/2019 Influenza Vaccine (Season Ended) 2025 Insurance MEDICARE T Care Teams Grader Tender Relationship Specialty Start Date End Date Dariel Horvath DO [address] [facility] [address] [place] [address] PCP - General Internal Medicine 05/27/21
--- OUTSIDE RECORDS SUMMARY | 2025-01-25 16:14 | XMS_ITS ---
Author Organization [facility] Address [address] [place] [address] Care Team Providers Care Bus And Sys Integration Senior Manager Name Role Phone Ramesh Smith Primary Care Provider UnavailDr. Juan Doherty Unavailable [phone] Wilfrido Harley Unavailable Unavailable [facility], Provider Unavailable Unavailab le Allergies Allergen (clinical drug ingredient) Drug/Non Drug Allergy documented on EMR Reaction Allergy Type Onset Date Status codeine Codeine Unknown Drug Allergy Active REASON FOR VISIT [facility] To [facility] Conversion Encounter Medications Medication SIG (Take, [...] Active Encounters Encounter Location Date Provider Diagnosis [facility] [address] [place] [place] [address] 03/30/2024 Provider [facility] Plan Of Treatment No Information Progress Notes * Lizzeth JOYhDOB:1955 (69 yo F)Acc No.[id number]:03/30/2024 Patient: Lou HARRIS Provider: Edel Taylor :1955 A ge:68 Y S ex:Female Date:03/30/2024 [facility] Pcp:Ramesh Smith Subjective: * Chief Complaints: * [facility] * Medical History: * Medications: [...] Electronic signature of Prov ider [employer]Migration on 01/25/2025 at 04:14 PM CDT Sign off status: Pending * Provider: Edel Taylor Date: 0 03/30/2024 Generated for Mare kathleen/Tao/Rach on: 01/25/2025 04:14 PM CDT
--- OUTSIDE RECORDS SUMMARY | 2025-01-25 16:15 | XMS_ITS | Clinical Summary ---
Author Organization [facility] Office Center Address [address] [place] [address] Care Team Providers Care Dining Room Host/Hostess Name Role Phone Augustus Birch MD Unavailable Ghanshyam Ruiz NP Primary Care Provider [phone] Allergies Active Allergy Reactions Criticality Noted Date [...] mouth daily Active blood-glucose meter,continuous ([employer] G6 [employer]) misc Activ e thiamine (VITAMIN B1) 100 [...] 1 tablet (1 g total) by mouth mileage clerk before breakfast 06/04/20 21 Active sodium zirconium [...] 11/29/2024 Assessment & Plan (11/29/2024 11:50 AM BERRY PICKER): Bilateral lower extremity chronic venous insufficiency with [...] Type Department Care Team Description 01/14/2025 Telephone [facility] Cardiology [address] [facility] [address] [place] [address] Carlitos Edmonds MD 12/26/2024 9:30 AM CDT Office Visit [facility] Orthopedics and Sports Medicine [address] [place] [address] [address] [place] [address] Samara Soto PA Closed fracture of medial portion of left tibial plateau with routine healing, subsequent encounter (Primary Dx) 12/26/2024 9:15 AM CDT - 12/26/2024 11:59 PM CDT Hospital Encounter [facility] MOB 1 DIAG IMG [address] [place] [address] Closed fracture of medial portion of left tibial plateau, initial encounter Discharge Disposition: Discharge to home or self care 12/25/2024 9:30 AM CDT Office Visit [facility] Cardiology [address] [place] [address] [address] [place] [phone] Bridget Nicholson NP Congestive heart failure, unspecified HF chronicity, unspecified heart failure type (HCC) (Primary Dx); Lymphedema of both lower extremities; Closed fracture of medial portion of left tibial plateau, initial encounter; Chronic venous insufficiency of lower extremity 11/27/2024 11:00 AM BERRY PICKER Office Visit [facility] Vascular at [address] [place] [phone] Lexie Rucker MD Chronic venous insufficiency of lower extremity (Primary Dx) 11/26/2024 2:00 PM BERRY PICKER Ancillary Procedure [facility] Vascular and Vein Surgery at [address] [place] [phone] Varicose veins of lower extremity with pain, bilateral; Other specified symptoms and signs involving the circulatory and respiratory systems 11/26/2024 1:00 PM BERRY PICKER Ancillary Procedure [facility] Vascular and Vein Surgery at [address] [place] [phone] Varicose veins of lower extremity with pain, bilateral 11/25/2024 Orders Only [facility] Cardiology [address] [place] [address] [address] [place] [phone] Bridget Nicholson NP 11/21/2024 Telephone [facility] Nephrology at [address] [place] [address] Bravo Mckenzie MD 11/11/2024 5:12 PM BERRY PICKER - 11/20/2024 6:14 PM BERRY PICKER Hospital Encounter [facility] 5 Med Surg [address] [place] [address] Bravo Chino MD Ogbuagu, Henry Maduabuchi, MD [...] initial encounter [S82.132A] Discharge Disposition: Discharge to [facility] 11/07/2024 Orders Only [facility] Cardiology [address] [place] [address] Jc Schaffer MD 10/30/2024 Telephone [facility] Cardiology [address] [place] [address] Carlitos Edmonds MD from Last [...] Tobacco: Never Tobacco Cessation:Counseling Given: Not Answered [facility] Utilities Answer Date Recorded In the past 12 months has e [employer] gas, oil, or water [employer] threatened to shut off services in your [...] often do you attend chur ch or lutheran services? More than 4 times per year 11/12/2024 Do you belong to any clubs o r organizations such as amish groups, unions, fraternal or athletic groups, or [...] any time in the past 12 m [facility], were you homeless or living in a custodial (including now)? No 11/12/2024 Personal Safety Answer [...] 36.4 C (97.5 F) 11/20/2024 4:02 AM BERRY PICKER Respiratory Rate 18 11/20/2024 8:44 AM BERRY PICKER Oxygen Saturation 99% 12/25/2024 9:24 AM CDT [...] Read Routine (OP Routine) 11/26/2024 2:32 PM BERRY PICKER Varicose veins of lower extremity with pain, bilateral Other specified symptoms and signs involving the circulatory and respiratory systems US VENOUS REFLUX BILATERAL Routine 11/26/2024 2:32 PM BERRY PICKER Varicose veins of lower extremity with pain, bilateral POCT GLUCOSE DEVICE Routine 11/20/2024 5 :57 PM BERRY PICKER POCT GLUCOSE DEVICE Routine 11/20/2024 1 2:28 PM BERRY PICKER POCT GLUCOSE DEVICE Routine 11/20/2024 8 :57 AM BERRY PICKER EGFR Routine 11/20/2024 5:33 AM BERRY PICKER DIFFERENTIAL AUTO Routine 11/20/2024 5:3 3 AM BERRY PICKER COMPREHENSIVE METABOLIC PANEL Routine 11/20/2024 5:33 AM BERRY PICKER CBC WITH AUTO DIFFERENTIAL Routine 11/20/2024 5:33 AM BERRY PICKER POCT GLUCOSE DEVICE Routine 11/19/2024 8 :57 PM BERRY PICKER POCT GLUCOSE DEVICE Routine 11/19/2024 5 :10 PM BERRY PICKER POCT GLUCOSE DEVICE Routine 11/19/2024 1 2:24 PM BERRY PICKER POCT GLUCOSE DEVICE Routine 11/19/2024 1 1:36 AM BERRY PICKER POCT GLUCOSE DEVICE Routine 11/19/2024 8 :22 AM BERRY PICKER EGFR Routine 11/19/2024 6:23 AM BERRY PICKER DIFFERENTIAL AUTO Routine 11/19/2024 6:2 3 AM BERRY PICKER AMMONIA Routine 11/19/2024 6:23 AM BERRY PICKER COMPREHENSIVE METABOLIC PANEL Routine 11/19/2024 6:23 AM BERRY PICKER CBC WITH AUTO DIFFERENTIAL Routine 11/19/2024 6:23 AM BERRY PICKER POCT GLUCOSE DEVICE Routine 11/18/2024 8 :[address] ABDOMEN PELVIS WO CONTRAST IP Routine 11/18/2024 8:34 PM BERRY PICKER POCT GLUCOSE DEVICE Routine 11/18/2024 5 :49 PM BERRY PICKER POCT GLUCOSE DEVICE Routine 11/18/2024 1 2:43 PM BERRY PICKER POCT GLUCOSE DEVICE Routine 11/18/2024 7 :55 AM BERRY PICKER DIFFERENTIAL AUTO Routine 11/18/2024 6:3 5 AM BERRY PICKER CBC WITH AUTO DIFFERENTIAL Routine 11/18/2024 6:35 AM BERRY PICKER EGFR Routine 11/18/2024 5:52 AM BERRY PICKER FOLATE Routine 11/18/2024 5:52 AM BERRY PICKER VITAMIN B12 Routine 11/18/2024 5:52 AM BERRY PICKER COMPREHENSIVE METABOLIC PANEL Routine 11/18/2024 5:52 AM BERRY PICKER POCT GLUCOSE DEVICE Routine 11/17/2024 8 :52 PM BERRY PICKER POCT GLUCOSE DEVICE Routine 11/17/2024 6 :05 PM BERRY PICKER POCT GLUCOSE DEVICE Routine 11/17/2024 1 :08 PM BERRY PICKER POCT GLUCOSE DEVICE Routine 11/17/2024 9 :20 AM BERRY PICKER EGFR Routine 11/17/2024 7:01 AM BERRY PICKER DIFFERENTIAL AUTO Routine 11/17/2024 7:0 1 AM BERRY PICKER COMPREHENSIVE METABOLIC PANEL Routine 11/17/2024 7:01 AM BERRY PICKER CBC WITH AUTO DIFFERENTIAL Routine 11/17/2024 7:01 AM BERRY PICKER POCT GLUCOSE DEVICE Routine 11/16/2024 7 :44 PM BERRY PICKER POCT GLUCOSE DEVICE Routine 11/16/2024 6 :33 PM BERRY PICKER POCT GLUCOSE DEVICE Routine 11/16/2024 1 1:54 AM BERRY PICKER HEMOGLOBIN A1C Routine 11/16/2024 9:56 AM BERRY PICKER EGFR Routine 11/16/2024 9:56 AM BERRY PICKER DIFFERENTIAL AUTO Routine 11/16/2024 9:5 6 AM BERRY PICKER COMPREHENSIVE METABOLIC PANEL Routine 11/16/2024 9:56 AM BERRY PICKER CBC WITH AUTO DIFFERENTIAL Routine 11/16/2024 9:56 AM BERRY PICKER POCT GLUCOSE DEVICE Routine 11/16/2024 8 :53 AM BERRY PICKER POCT GLUCOSE DEVICE Routine 11/16/2024 1 2:30 AM BERRY PICKER POCT GLUCOSE DEVICE Routine 11/15/2024 8 :35 PM BERRY PICKER POCT GLUCOSE DEVICE Routine 11/15/2024 5 :29 PM BERRY PICKER POCT GLUCOSE DEVICE Routine 11/15/2024 1 :28 PM BERRY PICKER POCT GLUCOSE DEVICE Routine 11/15/2024 8 :56 AM BERRY PICKER MAGNESIUM Routine 11/15/2024 4:35 AM BERRY PICKER EGFR Routine 11/15/2024 4:35 AM BERRY PICKER DIFFERENTIAL AUTO Routine 11/15/2024 4:3 5 AM BERRY PICKER PROTIME-INR Routine 11/15/2024 4:35 AM BERRY PICKER COMPREHENSIVE METABOLIC PANEL Routine 11/15/2024 4:35 AM BERRY PICKER CBC WITH AUTO DIFFERENTIAL Routine 11/15/2024 4:35 AM BERRY PICKER POCT GLUCOSE DEVICE Routine 11/14/2024 9 :28 PM BERRY PICKER POCT GLUCOSE DEVICE Routine 11/14/2024 5 :48 PM BERRY PICKER SODIUM, URINE, RANDOM Routine 11/14/2024 3:29 PM BERRY PICKER URINALYSIS AND REFLEX TO MICROSCOPIC AND CULTURE STAT 11/14/2024 3:28 PM BERRY PICKER AMMONIA Add-On 11/14/2024 2:16 PM BERRY PICKER POCT GLUCOSE DEVICE Routine 11/14/2024 1 1:21 AM BERRY PICKER POCT GLUCOSE DEVICE Routine 11/14/2024 8:11 AM BERRY PICKER EGFR Routine 11/14/2024 5:03 AM BERRY PICKER DIFFERENTIAL AUTO Routine 11/14/2024 5:0 3 AM BERRY PICKER COMPREHENSIVE METABOLIC PANEL Routine 11/14/2024 5:03 AM BERRY PICKER CBC WITH AUTO DIFFERENTIAL Routine 11/14/2024 5:03 AM BERRY PICKER POCT GLUCOSE DEVICE Routine 11/14/2024 4 :41 AM BERRY PICKER POCT GLUCOSE DEVICE Routine 11/13/2024 7 :59 PM BERRY PICKER POCT GLUCOSE DEVICE Routine 11/13/2024 5 :[address] KNEE LEFT WO CONTRAST IP Routine 11/13/2024 4:52 PM BERRY PICKER US CHEST IP Routine 11/13/2024 2:21 PM BERRY PICKER POCT GLUCOSE DEVICE Routine 11/13/2024 2 :13 PM BERRY PICKER FLUORO GUIDED ASPIRATION KNEE LEFT IP Routine 11/13/2024 1:30 PM BERRY PICKER EGFR Routine 11/13/2024 9:02 AM BERRY PICKER DIFFERENTIAL AUTO Routine 11/13/2024 9:0 2 AM BERRY PICKER COMPREHENSIVE METABOLIC PANEL Routine 11/13/2024 9:02 AM BERRY PICKER CBC WITH AUTO DIFFERENTIAL Routine 11/13/2024 9:02 AM BERRY PICKER MAGNESIUM Routine 11/13/2024 9:02 AM BERRY PICKER POCT GLUCOSE DEVICE Routine 11/13/2024 8 :00 AM BERRY PICKER STREP PNEUMONIAE AG, URINE Routine 11/13/2024 12:28 AM BERRY PICKER LEGIONELLA ANTIGEN, URINE Routine 11/13/2024 12:28 AM BERRY PICKER POCT GLUCOSE DEVICE Routine 11/12/2024 1 0:04 PM BERRY PICKER TRANSTHORACIC ECHO (TTE) COMPLETE W DOPPLER/CF WO CONTRAST Routine 11/12/2024 4:14 PM BERRY PICKER XR KNEE LEFT 1 OR 2 VIEWS IP Routine 11/12/2024 2:18 PM BERRY PICKER POCT GLUCOSE DEVICE Routine 11/12/2024 1 2:11 PM BERRY PICKER POCT GLUCOSE DEVICE Routine 11/12/2024 1 0:02 AM BERRY PICKER EGFR Routine 11/12/2024 8:29 AM BERRY PICKER DIFFERENTIAL AUTO Routine 11/12/2024 8:2 9 AM BERRY PICKER CBC WITH AUTO DIFFERENTIAL Routine 11/12/2024 8:29 AM BERRY PICKER COMPREHENSIVE METABOLIC PANEL Routine 11/12/2024 8:29 AM BERRY PICKER POCT GLUCOSE DEVICE Routine 11/12/2024 3 :01 AM BERRY PICKER BLOOD CULTURE STAT 11/11/2024 9:45 PM BERRY PICKER BLOOD CULTURE STAT 11/11/2024 9:[address] CHEST ABDOMEN PELVIS WO CONTRAST ED 11/11/2024 8:07 PM BERRY PICKER XR CHEST 1 VIEW ED 11/11/2024 5:30 PM BERRY PICKER EGFR STAT 11/11/2024 5:10 PM BERRY PICKER DIFFERENTIAL AUTO STAT 11/11/2024 5:1 0 PM BERRY PICKER PRO B-TYPE NATRIURETIC PEPTIDE STAT 11/11/2024 5:10 PM BERRY PICKER SEPSIS LACTATE WITH REFLEX Routine 11/11/2024 5:10 PM BERRY PICKER COMPREHENSIVE METABOLIC PANEL STAT 11/11/2024 5:10 PM BERRY PICKER CBC WITH AUTO DIFFERENTIAL STAT 11/11/2024 5:10 PM BERRY PICKER CARDIOLOGY DOCUMENT SCAN Routine 11/01/2024 10:08 AM BERRY PICKER CARDIOLOGY DOCUMENT SCAN Routine 10/31/2024 9:21 AM BERRY PICKER POCT LIPID PANEL Routine 11/15/2023 2:47 PM BERRY PICKER Lipid screening from Last 3 Months or [...] Stewart Greene M.D. RB: BECKI Report ID: [id number] Reading Location: [id number] Procedure Note Stewart Greene MD - 12/30/2024 [...] Stewart Greene M.D. RB: BECKI Report ID: [id number] Reading Location: [id number] us Samara MEDEIROS IMG XR PROCEDURES Final Result * US SONIA (11/26/2024 2:32 PM BERRY PICKER) Anatomical Region Laterality Modality Vascular N/A Ultrasound 11/26/2024 12:3 5 PM BERRY PICKER Narrative 11/27/2024 9:12 AM BERRY PICKER Vascular & Vein Surgery [facility] [place] [address] Lower Extremity Arterial Doppler Report Patient Name: LOU ISLAS B : 1955 Study Date: 11/26/2024 12:35:00 PM Gender: F Daycare Provider: Carlos,Maira RVT Location: VVSE Ref Provider: LEXIE RUCKER Quality: Adequate Order Provider: LEXIE RUCKER PROCEDURES: Arterial Report: Ankle - Brachial Index Doppler exam. INDICATIONS: BLE wounds with varicose veins. HISTORY: Hypertension. Hyperlipidemia. Diabetic. CHF. Former smoker. COMPARISONS: No previous exams. MEASUREMENTS: Right Value Left Value Rt Brachial Pressure 104 mmHg Lt Brachial Pressure 111 mmHg Rt CAT SITTER Pressure >220 mmHg Lt CAT SITTER Pressure >220 mmHg Rt DPA Pressure 196 [...] By: Lexie Rucker MD 11/27/2024 8:47:23 AM BERRY PICKER Procedure Note Lexie Rucker MD - 11/27/2024 Vascular & Vein Surgery [address] [facility] [place] [address] Lower Extremity Arterial Doppler Report Patient Name: LOU ISLAS B : 1955 Study Date: 11/26/2024 12:35:00 PM Gender: F Daycare Provider: Maira Gonzalez RVT Location: VVSE Ref Provider: LEXIE RUCKER Quality: Adequate Order Provider: LEXIE RUCKER PROCEDURES: Arterial Report: Ankle - Brachial Index Doppler exam. INDICATIONS: BLE wounds with varicose veins. HISTORY: Hypertension. Hyperlipidemia. Diabetic. CHF. Former smoker. COMPARISONS: No previous exams. MEASUREMENTS: Right Value Left Value Rt Brachial Pressure 104 mmHg Lt Brachial Pressure 111 mmHg Rt CAT SITTER Pressure >220 mmHg Lt CAT SITTER Pressure >220 mmHg Rt DPA Pressure 196 [...] By: Lexie Rucker MD 11/27/2024 8:47:23 AM BERRY PICKER us Lexie Rucker MD IMG US PROCEDURES Final Result * US Venous Reflux Bilateral (11/26/2024 2:32 PM BERRY PICKER) Anatomical Region Laterality Modality Vascular Bilateral Ultrasound 11/26/2024 12:5 9 PM BERRY PICKER Narrative 11/27/2024 9:12 AM BERRY PICKER Vascular & Vein Surgery [address] [place] [address] Lower Extremity Venous Reflux Duplex Report Patient Name: LOU ISLAS B : 1955 (69y 7m) Study Date: 11/26/2024 12:59:40 PM Gender: F Daycare Provider: Location: VVSE Ref Provider: LEXIE RUCKER Quality: [...] in sapheno-femoral junction and small saphenous vein. Hand Tennis Ball Coverer vein noted at distal posterior medial calf, [...] By: Lexie Rucker MD 11/27/2024 8:47:00 AM BERRY PICKER Procedure Note Lexie Rucker MD - 11/27/2024 Vascular & Vein Surgery [facility] [place] [address] Lower Extremity Venous Reflux Duplex Report Patient Name: LOU ISLAS B : 1955 (69y 7m) Study Date: 11/26/2024 12:59:40 PM Gender: F Daycare Provider: NIEVES Location: VVSE Ref Provider: LEXIE RUCKER [...] noted in sapheno-femoral junction and small saphenous vein.Hand Tennis Ball Coverer vein noted at distal posterior medial calf, [...] By: Lexie Rucker MD 11/27/2024 8:47:00 AM BERRY PICKER us Lexie Rucker MD IMG US PROCEDURES Final Result * POCT glucose (11/20/2024 5:57 PM BERRY PICKER) Glucose, POC 175 70 - 199 mg/dL Comment:Testing performed by : [address] [address] Blood 11/20/2024 5:57 PM BERRY PICKER 11/20/2024 5:57 PM BERRY PICKER us Joe Herron MD LAB POCT ORDERABLES - DEVICE Final Result [facility] [address] [facility] Department [place] [address] * POCT glucose (11/20/2024 12:28 PM BERRY PICKER) Glucose, POC 186 70 - 199 mg/dL Comment:Testing performed by : [address] [address] Glucose comment 1 Use This Result DAYANA CARPIO Comment:Testing performed by : [address] [address] Glucose comment 2 RN/MD Notified DAYANA CARPIO Comment:Testing performed by : [address] [address] Blood 11/20/2024 12:2 8 PM BERRY PICKER 11/20/2024 12:28 PM BERRY PICKER Joe Herron MD LAB POCT ORDERABLES - DEVICE Final Result Performing Organization Address [facility] de Phone Number DAYANA [address] [address] * POCT glucose (11/20/2024 8:57 AM BERRY PICKER) [facility] Glucose, POC 157 70 - 199 mg/dL Comment:Testing performed by : [address], [address] Glucose comment 1 Use This Result DAYANA Comment:Testing performed by : [address], [address] Glucose comment 2 RN/MD Notified DAYANA Comment:Testing performed by : [address] [address] Blood 11/20/2024 8:57 AM BERRY PICKER 11/20/2024 8:57 AM BERRY PICKER Joe Herron MD LAB POCT ORDERABLES - DEVICE Final Result Performing Organization Address [facility] de Phone Number MARY ALICE[address] [address] * (ABNORMAL) eGFR (11/20/2024 5:33 AM BERRY PICKER) [facility] eGFR 24(L) >=60 mL/min/1. 73 m2 Comment: [...] was last reviewed 2021. Testing performed by: [address] [address] Blood 11/20/2024 5:33 AM BERRY PICKER 11/20/2024 5:56 AM BERRY PICKER us Ivan Vargas MD LAB BLOOD ORDERABLES Final Re sult MARY ALICENIKOS [address] [facility] Department [place] [address] * (ABNORMAL) Differential, auto (11/20/2024 5:33 AM BERRY PICKER) Neutrophil abs 3.7 1.5 - 6.5 K/cumm Comment:Testing performed by : [address] [address] Imm gran abs 0.1 0.0 - 0.1 K/cumm DAYANA Comment:Testing performed by : [address] [address] Lymphocyte abs 1.1 0.8 - 3.3 K/cumm DAYANA Comment:Testing performed by : [address] [address] Monocyte abs 1.0(H) 0.2 - 0.8 K/cumm DAYANA Comment:Testing performed by : [address] [address] Eosinophil abs 0.8(H) 0.0 - 0.5 K/cumm DAYANA Comment:Testing performed by : [address] [address] Basophil abs 0.1 0.0 - 0.1 K/cumm DAYANA Comment:Testing performed by : [address] [address] Neutrophil pct 55.1 % [facility] Comment: Interpretive Data Percent cell count reference ranges are not reported, since discordance with absolute values may lead to misinterpretation of CBC data. Current Interpretive Data was last revised on 2018. Testing performed by: [facility], [address] [place] [address]., [address] Imm gran pct 1.2 % [facility] Comment: Interpretive Data Percent cell count reference ranges are not reported, since discordance with absolute values may lead to misinterpretation of CBC data. Current Interpretive Data was last revised on 2018. Testing performed by: [address] [address] Lymphocyte pct 16.2 % [facility] Comment: Interpretive Data Percent cell count reference ranges are not reported, since discordance with absolute values may lead to misinterpretation of CBC data. Current Interpretive Data was last revised on 2018. Testing performed by: [address] [address] Monocyte pct 14.3 % [facility] Comment: Interpretive Data Percent cell count reference ranges are not reported, since discordance with absolute values may lead to misinterpretation of CBC data. Current Interpretive Data was last revised on 2018. Testing performed by: [address] [address] Eosinophil pct 12.3 % [facility] Comment: Interpretive Data Percent cell count reference ranges are not reported, since discordance with absolute values may lead to misinterpretation of CBC data. Current Interpretive Data was last revised on 2018. Testing performed by: [address] [address] Basophil pct 0.9 % [facility] Comment: Interpretive Data Percent cell count reference ranges are not reported, since discordance with absolute values may lead to misinterpretation of CBC data. Current Interpretive Data was last revised on 2018. Testing performed by: [address] [address] Blood 11/20/2024 5:33 AM BERRY PICKER 11/20/2024 5:56 AM BERRY PICKER us Ivan Vargas MD LAB BLOOD ORDERABLES Final [facility]ult [facility] [address] [facility] Department of Laboratories [place], [place] [id number] * (ABNORMAL) CBC with auto differential (11/20/2024 5:33 AM BERRY PICKER) WBC 6.7 3.8 - 9.9 K/cumm Comment:Testing performed by : [address] [address] Hgb 9.2(L) 11.9 - 15.5 g/dL DAYANA Comment:Testing performed by : [address] [address] Hct 29.0(L) 35.6 - 45.5 % DAYANA Comment:Testing performed by : [address], [address] Plt 275 150 - 400 K/cumm DAYANA Comment:Testing performed by : [address], [address] MPV 11.0 9.1 - 12.3 fL DAYANA Comment:Testing performed by : [address] [address] RBC 2.80(L) 3.90 - 5.20 M/cumm DAYANA Comment:Testing performed by : [address] [address] MCV 103.6(H) 81.3 - 96.4 fL DAYANA Comment:Testing performed by : [address] [address] MCH 32.9 27.1 - 33.3 pg DAYANA Comment:Testing performed by : [address] [address] MCHC 31.7(L) 32.3 - 35.7 g/dL DAYANA Comment:Testing performed by : [address], [address] RDW CV 16.5(H) 11.1 - 14.9 % DAYANA Comment:Testing performed by : [address] [address] RDW SD 62.3(H) 35.7 - 48.1 fL DAYANA CARPIO Comment:Testing performed by : [address] [address] NRBC abs 0.00 0.00 - 0.01 K/cumm DAYANA CARPIO Comment:Testing performed by : [address] [address] Blood 11/20/2024 5:33 AM BERRY PICKER 11/20/2024 5:56 AM BERRY PICKER us Ivan Vargas MD LAB BLOOD ORDERABLES Final Re sult DAYANA [address] [facility] Department [place] [address] * (ABNORMAL) Comprehensive metabolic panel (11/20/2024 5:33 AM BERRY PICKER) Sodium 134(L) 135 - 145 mmol/L Comment:Testing performed by : [address] [address] Potassium, pl 3.8 3.3 - 4.9 mmol/L DAYANA CARPIO Comment:Testing performed by : [address] [address] Chloride 91(L) 97 - 110 mmol/L DAYANA CARPIO Comment:Testing performed by : [address] [address] CO2 26 22 - 32 mmol/L DAYANA CARPIO Comment:Testing performed by : [address] [address] Anion gap 17(H) 2 - 15 mmol/L DAYANA CARPIO Comment:Testing performed by : [address] [address] BUN 51(H) 6 - 25 mg/dL DAYANA CARPIO Comment:Testing performed by : [address] [address] Creatinine 2.20(H) 0.60 - 1.10 mg/dL DAYANA CARPIO Comment:Testing performed by : [address] [address] Glucose 149 70 - 199 mg/dL DAYANA [...] was last revised 2022. Testing performed by: [address] [address] Calcium 10.3 8.5 - 10.3 mg/dL DAYANA Comment:Testing performed by : [address] [address] Bilirubin, total 1.3(H) 0.1 - 1.2 mg/dL DAYANA Comment:Testing performed by : [address] [address] Protein, pl 6.6 6.5 - 8.5 g/dL DAYANA Comment:Testing performed by : [address] [address] Albumin 3.8 3.5 - 5.0 g/dL DAYANA Comment:Testing performed by : [address] [address] Alk phos 391(H) 40 - 130 Units/L DAYANA Comment:Testing performed by : [address] [address] ALT 15 7 - 45 Units/L DAYANA Comment:Testing performed by : [address] [address] AST 29 10 - 45 Units/L DAYANA Comment:Testing performed by : [address] [address] Blood 11/20/2024 5:33 AM BERRY PICKER 11/20/2024 5:56 AM BERRY PICKER us Ivan Vargas MD LAB BLOOD ORDERABLES Final Re sult Performing Organization Address [facility] Co de Phone Number MARY ALICE[address] [place] [address] * (ABNORMAL) POCT glucose (11/19/2024 8:57 PM BERRY PICKER) Glucose, POC 254(H) 70 - 199 mg/dL Comment:Testing performed by : [address] [address] Glucose comment 1 Use This Result DAYANA Comment:Testing performed by : [address] [address] Blood 11/19/2024 8:57 PM BERRY PICKER 11/19/2024 8:57 PM BERRY PICKER us Joe Herron MD LAB POCT ORDERABLES - DEVICE Final Result Performing Organization Address [facility] de Phone Number [address] [place] [address] * (ABNORMAL) POCT glucose (11/19/2024 5:10 PM BERRY PICKER) Glucose, POC 225(H) 70 - 199 mg/dL Comment:Testing performed by : [address] [address] Blood 11/19/2024 5:10 PM BERRY PICKER 11/19/2024 5:10 PM BERRY PICKER us Joe Herron MD LAB POCT ORDERABLES - DEVICE Final Result Performing Organization Address [facility] Co de Phone Number [address] [place] [address] * POCT glucose (11/19/2024 12:24 PM BERRY PICKER) Glucose, POC 191 70 - 199 mg/dL Comment:Testing performed by : [address] [address] Blood 11/19/2024 12:2 4 PM BERRY PICKER 11/19/2024 12:24 PM BERRY PICKER Joe Herron MD LAB POCT ORDERABLES - DEVICE Final Result Performing Organization Address [facility] Co de Phone Number DAYANA [address] [address] * POCT glucose (11/19/2024 11:36 AM BERRY PICKER) Glucose, POC 181 70 - 199 mg/dL Comment:Testing performed by : [address] [address] Blood 11/19/2024 11:3 6 AM BERRY PICKER 11/19/2024 11:36 AM BERRY PICKER Joe Herron MD LAB POCT ORDERABLES - DEVICE Final Result Performing Organization Address [facility] de Phone Number MARY ALICE[address] [address] * POCT glucose (11/19/2024 8:22 AM BERRY PICKER) Glucose, POC 163 70 - 199 mg/dL Comment:Testing performed by : [address] [address] Glucose comment 1 Use This Result DAYANA Comment:Testing performed by : [address] [address] Blood 11/19/2024 8:22 AM BERRY PICKER 11/19/2024 8:22 AM BERRY PICKER Joe Herron MD LAB POCT ORDERABLES - DEVICE Final Result Performing Organization Address [facility] Co de Phone Number DAYANA [address] [address] * (ABNORMAL) eGFR (11/19/2024 6:23 AM BERRY PICKER) eGFR 28(L) >=60 mL/min/1. 73 m2 Comment: [...] was last reviewed 2021. Testing performed by: [address] [address] Blood 11/19/2024 6:23 AM BERRY PICKER 11/19/2024 6:31 AM BERRY PICKER us Ivan Vargas MD LAB BLOOD ORDERABLES Final Re sult DAYANA CARPIO [address] [facility] Department of Laboratories [place], [place] [id number] * (ABNORMAL) Differential, auto (11/19/2024 6:23 AM BERRY PICKER) Pathologist [facility] Neutrophil abs 3.7 1.5 - 6.5 K/cumm Comment:Testing performed by : [address] [address] Imm gran abs 0.1 0.0 - 0.1 K/cumm DAYANA CARPIO Comment:Testing performed by : [address] [address] Lymphocyte abs 1.1 0.8 - 3.3 K/cumm DAYANA Comment:Testing performed by : [address] [address] Monocyte abs 1.0(H) 0.2 - 0.8 K/cumm [facility] Comment:Testing performed by : [address] [address] Eosinophil abs 1.1(H) 0.0 - 0.5 K/cumm [facility] Comment:Testing performed by : [address] [address] Basophil abs 0.1 0.0 - 0.1 K/cumm [facility] Comment:Testing performed by : [address] [address] Neutrophil pct 52.7 % [facility] Comment: Interpretive Data Percent cell count reference ranges are not reported, since discordance with absolute values may lead to misinterpretation of CBC data. Current Interpretive Data was last revised on 2018. Testing performed by: [address] [address] Imm gran pct 1.1 % [facility] Comment: Interpretive Data Percent cell count reference ranges are not reported, since discordance with absolute values may lead to misinterpretation of CBC data. Current Interpretive Data was last revised on 2018. Testing performed by: [address] [address] Lymphocyte pct 15.8 % [facility] Comment: Interpretive Data Percent cell count reference ranges are not reported, since discordance with absolute values may lead to misinterpretation of CBC data. Current Interpretive Data was last revised on 2018. Testing performed by: [address] [address] Monocyte pct 14.2 % [facility] Comment: Interpretive Data Percent cell count reference ranges are not reported, since discordance with absolute values may lead to misinterpretation of CBC data. Current Interpretive Data was last revised on 2018. Testing performed by: [address] [address] Eosinophil pct 15.2 % [facility] Comment: Interpretive Data Percent cell count reference ranges are not reported, since discordance with absolute values may lead to misinterpretation of CBC data. Current Interpretive Data was last revised on 2018. Testing performed by: [address] [place]., [address] Basophil pct 1.0 % DAYANA Comment: Interpretive Data Percent cell count reference ranges are not reported, since discordance with absolute values may lead to misinterpretation of CBC data. Current Interpretive Data was last revised on 2018. Testing performed by: [address] [address] Blood 11/19/2024 6:23 AM BERRY PICKER 11/19/2024 6:31 AM BERRY PICKER us Ivan Vargas MD LAB BLOOD ORDERABLES Final Re sult DAYANA [address] [facility] Department [place] [address] * (ABNORMAL) CBC with auto differential (11/19/2024 6:23 AM BERRY PICKER) WBC 7.0 3.8 - 9.9 K/cumm Comment:Testing performed by : [address] [address] Hgb 8.9(L) 11.9 - 15.5 g/dL DAYANA Comment:Testing performed by : [address] [address] Hct 28.1(L) 35.6 - 45.5 % DAYANA Comment:Testing performed by : [address] [address] Plt 268 150 - 400 K/cumm DAYANA Comment:Testing performed by : [address] [address] MPV 11.2 9.1 - 12.3 fL DAYANA Comment:Testing performed by : [address] [address] RBC 2.75(L) 3.90 - 5.20 M/cumm DAYANA Comment:Testing performed by : [address] [address] MCV 102.2(H) 81.3 - 96.4 fL DAYANA Comment:Testing performed by : [address] [address] MCH 32.4 27.1 - 33.3 pg DAYANA CARPIO Comment:Testing performed by : [address] [address] MCHC 31.7(L) 32.3 - 35.7 g/dL DAYANA CARPIO Comment:Testing performed by : [address] [address] RDW CV 16.5(H) 11.1 - 14.9 % DAYANA CARPIO Comment:Testing performed by : [address], [address] RDW SD 60.4(H) 35.7 - 48.1 fL DAYANA Comment:Testing performed by : [address] [address] NRBC abs 0.00 0.00 - 0.01 K/cumm DAYANA Comment:Testing performed by : [address], [address] Blood 11/19/2024 6:23 AM BERRY PICKER 11/19/2024 6:31 AM BERRY PICKER Ivan Vargas MD LAB BLOOD ORDERABLES Final Re sult Performing Organization Address City/[facility] Co de Phone Number DAYNAA [address] [facility] Department [place] [address] * Ammonia (11/19/2024 6:23 AM BERRY PICKER) Ammonia 24 <=50 mcmol/L Comment: Please note on 02/21/2024 the unit of measure changed from mcg/dL to mcmol/L. Current Interpretive Data was last revised on 2024. Testing performed by: [address] [address] Blood 11/19/2024 6:23 AM BERRY PICKER 11/19/2024 6:27 AM BERRY PICKER Ivan Vargas MD LAB BLOOD ORDERABLES Final Re sult Performing Organization Address City/[facility] Co de Phone Number DAYANA [address] [facility] Department [place] [address] * (ABNORMAL) Comprehensive metabolic panel (11/19/2024 6:23 AM BERRY PICKER) Sodium 133(L) 135 - 145 mmol/L Comment:Testing performed by : [address] [address] Potassium, pl 3.6 3.3 - 4.9 mmol/L DAYANA Comment:Testing performed by : [address] [address] Chloride 92(L) 97 - 110 mmol/L DAYANA Comment:Testing performed by : [address] [address] CO2 27 22 - 32 mmol/L DAYANA Comment:Testing performed by : [address] [address] Anion gap 14 2 - 15 mmol/L DAYANA Comment:Testing performed by : [address] [address] BUN 46(H) 6 - 25 mg/dL DAYANA Comment:Testing performed by : [address] [address] Creatinine 1.90(H) 0.60 - 1.10 mg/dL DAYANA Comment:Testing performed by : [address] [address] Glucose 151 70 - 199 mg/dL DAYANA [...] was last revised 2022. Testing performed by: [address] [address] Calcium 10.2 8.5 - 10.3 mg/dL DAYANA Comment:Testing performed by : [address] [address] Bilirubin, total 1.4(H) 0.1 - 1.2 mg/dL DAYANA Comment:Testing performed by : [address], [place]., [address] Protein, pl 6.3(L) 6.5 - 8.5 g/dL DAYANA Comment:Testing performed by : [address], [place]., [address] Albumin 3.6 3.5 - 5.0 g/dL DAYANA Comment:Testing performed by : [address] [address] Alk phos 390(H) 40 - 130 Units/L DAYANA Comment:Testing performed by : [address] [address] ALT 17 7 - 45 Units/L DAAYNA Comment:Testing performed by : [address] [address] AST 31 10 - 45 Units/L DAYANA Comment:Testing performed by : [address] [address] Blood 11/19/2024 6:23 AM BERRY PICKER 11/19/2024 6:31 AM BERRY PICKER Ivan Vargas MD LAB BLOOD ORDERABLES Final Re sult [facility] [address] [facility] Department [place] [address] * (ABNORMAL) POCT glucose (11/18/2024 8:46 PM BERRY PICKER) [facility] Glucose, POC 234(H) 70 - 199 mg/dL Comment:Testing performed by : [address] [address] Glucose comment 1 Use This Result DAYANA Comment:Testing performed by : [address] [address] Glucose comment 2 RN/MD Notified CERNER MH Comment:Testing performed by : [facility], [address] [place] [address], [place]., [address] Blood 11/18/2024 8:46 PM BERRY PICKER 11/18/2024 8:46 PM BERRY PICKER us Ivan Vargas MD LAB POCT ORDERABLES - DEVICE Final Result DAYANA CARPIO [address] [facility] Department [place] [address] * CT Abdomen Pelvis WO Contrast (11/18/2024 8:34 PM BERRY PICKER) Anatomical Region Laterality Modality Body N/A Computed Tomogra phy 11/18/2024 9:07 PM BERRY PICKER Narrative 11/18/2024 9:19 PM BERRY PICKER EXAM DESCRIPTION: CT ABDOMEN PELVIS WO CONTRAST [...] Pedro Alexis M.D. KT: KIM Report ID: [id number] Reading Location: [id number] Procedure Note Pedro Alexis MD - 11/18/2024 [...] Pedro Alexis M.D. KT: KIM Report ID: [id number] Reading Location: [place] [address] Ivan Vargas MD IMG CT PROCEDURES Final Resul t * (ABNORMAL) POCT glucose (11/18/2024 5:49 PM BERRY PICKER) [facility] Glucose, POC 216(H) 70 - 199 mg/dL Comment:Testing performed by : [address] [address] Glucose comment 1 RN/MD Notified DAYANA CARPIO Comment:Testing performed by : [address] [address] Glucose comment 2 Use This Result DAYANA CARPIO Comment:Testing performed by : [address] [address] Blood 11/18/2024 5:49 PM BERRY PICKER 11/18/2024 5:49 PM BERRY PICKER us Ivan Vargas MD LAB POCT ORDERABLES - DEVICE Final Result Performing Organization Address [facility] Co de Phone Number DAYANA [facility] [place] [address] * (ABNORMAL) POCT glucose (11/18/2024 12:43 PM BERRY PICKER) Glucose, POC 232(H) 70 - 199 mg/dL Comment:Testing performed by : [address] [address] Glucose comment 1 Use This Result DAYANA Comment:Testing performed by : [address] [address] Blood 11/18/2024 12:4 3 PM BERRY PICKER 11/18/2024 12:43 PM BERRY PICKER Result [facility] Ivan Vargas MD LAB POCT ORDERABLES - DEVICE Final Result Performing Organization Address [facility] de Phone Number DAYANA [address] [address] * POCT glucose (11/18/2024 7:55 AM BERRY PICKER) Glucose, POC 145 70 - 199 mg/dL Comment:Testing performed by : [address] [address] Glucose comment 1 Use This Result DAYANA Comment:Testing performed by : [address] [address] Glucose comment 2 RN/MD Notified DAYANA Comment:Testing performed by : [address] [address] Blood 11/18/2024 7:55 AM BERRY PICKER 11/18/2024 7:55 AM BERRY PICKER Result [facility] Ivan Vargas MD LAB POCT ORDERABLES - DEVICE Final Result Performing Organization Address [facility] Co de Phone Number DAYANA [address] [address] * (ABNORMAL) Differential, auto (11/18/2024 6:35 AM BERRY PICKER) Neutrophil abs 3.7 1.5 - 6.5 K/cumm Comment:Testing performed by : [address] [address] Imm gran abs 0.1 0.0 - 0.1 K/cumm DAYANA Comment:Testing performed by : [address] [address] Lymphocyte abs 1.0 0.8 - 3.3 K/cumm [facility] Comment:Testing performed by : [address] [address] Monocyte abs 1.2(H) 0.2 - 0.8 K/cumm [facility] Comment:Testing performed by : [address] [address] Eosinophil abs 1.0(H) 0.0 - 0.5 K/cumm [facility] Comment:Testing performed by : [address] [address] Basophil abs 0.1 0.0 - 0.1 K/cumm [facility] Comment:Testing performed by : [address] [address] Neutrophil pct 52.9 % [facility] Comment: Interpretive Data Percent cell count reference ranges are not reported, since discordance with absolute values may lead to misinterpretation of CBC data. Current Interpretive Data was last revised on 2018. Testing performed by: [address] [address] Imm gran pct 1.1 % [facility] Comment: Interpretive Data Percent cell count reference ranges are not reported, since discordance with absolute values may lead to misinterpretation of CBC data. Current Interpretive Data was last revised on 2018. Testing performed by: [address] [address] Lymphocyte pct 14.4 % [facility] Comment: Interpretive Data Percent cell count reference ranges are not reported, since discordance with absolute values may lead to misinterpretation of CBC data. Current Interpretive Data was last revised on 2018. Testing performed by: [address] [address] Monocyte pct 17.1 % DAYANA Comment: Interpretive Data Percent cell count reference ranges are not reported, since discordance with absolute values may lead to misinterpretation of CBC data. Current Interpretive Data was last revised on 2018. Testing performed by: [address] [address] Eosinophil pct 13.5 % DAYANA Comment: Interpretive Data Percent cell count reference ranges are not reported, since discordance with absolute values may lead to misinterpretation of CBC data. Current Interpretive Data was last revised on 2018. Testing performed by: [address] [address] Basophil pct 1.0 % DAYANA Comment: Interpretive Data Percent cell count reference ranges are not reported, since discordance with absolute values may lead to misinterpretation of CBC data. Current Interpretive Data was last revised on 2018. Testing performed by: [address] [address] Blood 11/18/2024 6:35 AM BERRY PICKER 11/18/2024 6:57 AM BERRY PICKER us Ivan Vargas MD LAB BLOOD ORDERABLES Final Re sult DAYANA [address] [facility] Department [place] [address] * (ABNORMAL) CBC with auto differential (11/18/2024 6:35 AM BERRY PICKER) WBC 7.1 3.8 - 9.9 K/cumm Comment:Testing performed by : [address] [address] Hgb 9.0(L) 11.9 - 15.5 g/dL DAYANA CARPIO Comment:Testing performed by : [address] [address] Hct 28.2(L) 35.6 - 45.5 % DAYANA Comment:Testing performed by : [address] [address] Plt 247 150 - 400 K/cumm DAYANA Comment:Testing performed by : [address] [address] MPV 11.1 9.1 - 12.3 fL DAYANA CARPIO Comment:Testing performed by : [address] [address] RBC 2.73(L) 3.90 - 5.20 M/cumm DAYANA CARPIO Comment:Testing performed by : [address] [address] MCV 103.3(H) 81.3 - 96.4 fL DAYANA Comment:Testing performed by : [address] [address] MCH 33.0 27.1 - 33.3 pg DAYANA Comment:Testing performed by : [address] [address] MCHC 31.9(L) 32.3 - 35.7 g/dL DAYANA Comment:Testing performed by : [address] [address] RDW CV 16.6(H) 11.1 - 14.9 % DAYANA Comment:Testing performed by : [address] [address] RDW SD 62.6(H) 35.7 - 48.1 fL DAYANA Comment:Testing performed by : [address] [address] NRBC abs 0.00 0.00 - 0.01 K/cumm DAYANA Comment:Testing performed by : [address] [address] Blood 11/18/2024 6:35 AM BERRY PICKER 11/18/2024 6:57 AM BERRY PICKER us Ivan Vargas MD LAB BLOOD ORDERABLES Final Re sult DAYANA [address] [facility] Department [place] [address] * (ABNORMAL) eGFR (11/18/2024 5:52 AM BERRY PICKER) eGFR 28(L) >=60 mL/min/1. 73 m2 Comment: [...] was last reviewed 2021. Testing performed by: [address] [address] Blood 11/18/2024 5:52 AM BERRY PICKER 11/18/2024 6:24 AM BERRY PICKER us Ivan Vargas MD LAB BLOOD ORDERABLES Final Re sult Performing Organization Address [facility] Co de Phone Number [place] [phone] [facility] [place] [address] * Folate (11/18/2024 5:52 AM BERRY PICKER) Folic acid >20.0 >=5.0 ng/mL Comment:Testing performed by : [address] [address] Blood 11/18/2024 5:52 AM BERRY PICKER 11/18/2024 6:24 AM BERRY PICKER us Ivan Vargas MD LAB BLOOD ORDERABLES Final Re sult [address] Department [place] [address] * Vitamin B12 (11/18/2024 5:52 AM BERRY PICKER) [facility] Vitamin B12 910 230 - 1,250 pg/mL Comment:Testing performed by : [address] [address] Blood 11/18/2024 5:52 AM BERRY PICKER 11/18/2024 6:24 AM BERRY PICKER us Ivan Vargas MD LAB BLOOD ORDERABLES Final Re sult DAYANA [facility] [place] [address] * (ABNORMAL) Comprehensive metabolic panel (11/18/2024 5:52 AM BERRY PICKER) [facility] Sodium 132(L) 135 - 145 mmol/L Comment:Testing performed by : [address] [address] Potassium, pl 3.9 3.3 - 4.9 mmol/L DAYANA Comment:Testing performed by : [address] [address] Chloride 92(L) 97 - 110 mmol/L DAYANA Comment:Testing performed by : [address] [address] CO2 27 22 - 32 mmol/L DAYANA Comment:Testing performed by : [address] [address] Anion gap 13 2 - 15 mmol/L DAYANA Comment:Testing performed by : [address] [address] BUN 43(H) 6 - 25 mg/dL DAYANA Comment:Testing performed by : [address] [address] Creatinine 1.90(H) 0.60 - 1.10 mg/dL DAYANA Comment:Testing performed by : [address] [address] Glucose 140 70 - 199 mg/dL DAYANA [...] was last revised 2022. Testing performed by: [address] [address] Calcium 10.0 8.5 - 10.3 mg/dL DAYANA Comment:Testing performed by : [address] [address] Bilirubin, total 1.5(H) 0.1 - 1.2 mg/dL DAYANA Comment:Testing performed by : [address] [address] Protein, pl 6.3(L) 6.5 - 8.5 g/dL DAYANA Comment:Testing performed by : [address] [address] Albumin 3.8 3.5 - 5.0 g/dL DAYANA Comment:Testing performed by : [address] [address] Alk phos 369(H) 40 - 130 Units/L DAYANA Comment:Testing performed by : [address] [address] ALT 17 7 - 45 Units/L DAYANA Comment:Testing performed by : [address] [address] AST 36 10 - 45 Units/L DAYANA Comment:Testing performed by : [address] [address] Blood 11/18/2024 5:52 AM BERRY PICKER 11/18/2024 6:24 AM BERRY PICKER us Ivan Vargas MD LAB BLOOD ORDERABLES Final Re sult Performing Organization Address City/[facility] Co de Phone Number DAYANA [address] [place] [address] * (ABNORMAL) POCT glucose (11/17/2024 8:52 PM BERRY PICKER) Glucose, POC 275(H) 70 - 199 mg/dL Comment:Testing performed by : [address] [address] Blood 11/17/2024 8:52 PM BERRY PICKER 11/17/2024 8:52 PM BERRY PICKER Ivan Vargas MD LAB POCT ORDERABLES - DEVICE Final Result Performing Organization Address [facility] Co de Phone Number DAYANA [address] [address] * (ABNORMAL) POCT glucose (11/17/2024 6:05 PM BERRY PICKER) Pathologist [facility] Glucose, POC 280(H) 70 - 199 mg/dL Comment:Testing performed by : [address] [address] Glucose comment 1 Use This Result DAYANA CARPIO Comment:Testing performed by : [address] [address] Glucose comment 2 RN/MD Notified DAYANA CARPIO Comment:Testing performed by : [address] [address] Blood 11/17/2024 6:05 PM BERRY PICKER 11/17/2024 6:05 PM BERRY PICKER Ivan Vargas MD LAB POCT ORDERABLES - DEVICE Final Result Performing Organization Address [facility] Co de Phone Number DAYANA [address] [address] * (ABNORMAL) POCT glucose (11/17/2024 1:08 PM BERRY PICKER) Glucose, POC 236(H) 70 - 199 mg/dL Comment:Testing performed by : [facility], [address] [place] [address]., [address] Glucose comment 1 Use This Result DAYANA Comment:Testing performed by : [address] [address] Glucose comment 2 RN/MD Notified DAYANA Comment:Testing performed by : [facility], [address] [place] [address]., [address] Blood 11/17/2024 1:08 PM BERRY PICKER 11/17/2024 1:08 PM BERRY PICKER Ivan Vargas MD LAB POCT ORDERABLES - DEVICE Final Result Performing Organization Address City/[facility] Co de Phone Number DAYANA [address] [place] [address] * POCT glucose (11/17/2024 9:20 AM BERRY PICKER) [facility] Glucose, POC 146 70 - 199 mg/dL Comment:Testing performed by : [facility], [address] [place] [address]., [address] Glucose comment 1 Use This Result DAYANA Comment:Testing performed by : [address] [address] Glucose comment 2 RN/MD Notified DAYANA Comment:Testing performed by : [address] [address] Blood 11/17/2024 9:20 AM BERRY PICKER 11/17/2024 9:20 AM BERRY PICKER Ivan Vargas MD LAB POCT ORDERABLES - DEVICE Final Result Performing Organization Address City/[facility]/ZIP Co de Phone Number [address] [employer] [place] [address] * (ABNORMAL) eGFR (11/17/2024 7:01 AM BERRY PICKER) [facility] eGFR 28(L) >=60 mL/min/1. 73 m2 Comment: [...] was last reviewed 2021. Testing performed by: [address] [address] Blood 11/17/2024 7:01 AM BERRY PICKER 11/17/2024 7:33 AM BERRY PICKER Ivan Vargas MD LAB BLOOD ORDERABLES Final Re sult [facility] [address] [facility] Department [place] [address] * (ABNORMAL) Differential, auto (11/17/2024 7:01 AM BERRY PICKER) Neutrophil abs 3.8 1.5 - 6.5 K/cumm Comment:Testing performed by : [address] [address] Imm gran abs 0.1 0.0 - 0.1 K/cumm DAYANA Comment:Testing performed by : [address] [address] Lymphocyte abs 0.8 0.8 - 3.3 K/cumm DAYANA Comment:Testing performed by : [address] [address] Monocyte abs 1.0(H) 0.2 - 0.8 K/cumm DAYANA Comment:Testing performed by : [address] [address] Eosinophil abs 0.7(H) 0.0 - 0.5 K/cumm [facility] Comment:Testing performed by : [address] [address] Basophil abs 0.1 0.0 - 0.1 K/cumm [facility] Comment:Testing performed by : [address] [address] Neutrophil pct 58.2 % [facility] Comment: Interpretive Data Percent cell count reference ranges are not reported, since discordance with absolute values may lead to misinterpretation of CBC data. Current Interpretive Data was last revised on 2018. Testing performed by: [address] [address] Imm gran pct 0.9 % [facility] Comment: Interpretive Data Percent cell count reference ranges are not reported, since discordance with absolute values may lead to misinterpretation of CBC data. Current Interpretive Data was last revised on 2018. Testing performed by: [address] [address] Lymphocyte pct 12.4 % [facility] Comment: Interpretive Data Percent cell count reference ranges are not reported, since discordance with absolute values may lead to misinterpretation of CBC data. Current Interpretive Data was last revised on 2018. Testing performed by: [address] [address] Monocyte pct 15.8 % [facility] Comment: Interpretive Data Percent cell count reference ranges are not reported, since discordance with absolute values may lead to misinterpretation of CBC data. Current Interpretive Data was last revised on 2018. Testing performed by: [address] [address] Eosinophil pct 11.5 % [facility] [facility] Comment: Interpretive Data Percent cell count reference ranges are not reported, since discordance with absolute values may lead to misinterpretation of CBC data. Current Interpretive Data was last revised on 2018. Testing performed by: [address] [address] Basophil pct 1.2 % [facility] Comment: Interpretive Data Percent cell count reference ranges are not reported, since discordance with absolute values may lead to misinterpretation of CBC data. Current Interpretive Data was last revised on 2018. Testing performed by: [address] [address] Blood 11/17/2024 7:01 AM BERRY PICKER 11/17/2024 7:34 AM BERRY PICKER us Ivan Vargas MD LAB BLOOD ORDERABLES Final [facility] [address] [facility] Department [place] [address] * (ABNORMAL) CBC with auto differential (11/17/2024 7:01 AM BERRY PICKER) WBC 6.5 3.8 - 9.9 K/cumm Comment:Testing performed by : [address] [address] Hgb 8.9(L) 11.9 - 15.5 g/dL [facility] Comment:Testing performed by : [address] [address] Hct 27.6(L) 35.6 - 45.5 % [facility] Comment:Testing performed by : [address] [address] Plt 227 150 - 400 K/cumm [facility] Comment:Testing performed by : [address] [address] MPV 11.2 9.1 - 12.3 fL [facility] Comment:Testing performed by : [address] [address] RBC 2.70(L) 3.90 - 5.20 M/cumm [facility] Comment:Testing performed by : [address] [address] MCV 102.2(H) 81.3 - 96.4 fL [facility] Comment:Testing performed by : [address] [address] MCH 33.0 27.1 - 33.3 pg [facility] Comment:Testing performed by : [address] [address] MCHC 32.2(L) 32.3 - 35.7 g/dL [facility]IO Comment:Testing performed by : [address] [address] RDW CV 16.6(H) 11.1 - 14.9 % [facility] Comment:Testing performed by : [address] [address] RDW SD 60.4(H) 35.7 - 48.1 fL [facility] Comment:Testing performed by : [address] [address] NRBC abs 0.00 0.00 - 0.01 K/cumm [facility] Comment:Testing performed by : [address] [address] Blood 11/17/2024 7:01 AM BERRY PICKER 11/17/2024 7:34 AM BERRY PICKER Ivan Vargas MD LAB BLOOD ORDERABLES Final Re sult [facility] Department [place] [address] * (ABNORMAL) Comprehensive metabolic panel (11/17/2024 7:01 AM BERRY PICKER) Sodium 135 135 - 145 mmol/L Comment:Testing performed by : [address] [address] Potassium, pl 3.3 3.3 - 4.9 mmol/L [facility] Comment:Testing performed by : [address] [address] Chloride 92(L) 97 - 110 mmol/L [facility] Comment:Testing performed by : [address] [address] CO2 29 22 - 32 mmol/L [facility] Comment:Testing performed by : [address] [address] Anion gap 14 2 - 15 mmol/L [facility] Comment:Testing performed by : [address] [address] BUN 40(H) 6 - 25 mg/dL [facility] Comment:Testing performed by : [address] [address] Creatinine 1.90(H) 0.60 - 1.10 mg/dL [facility] Comment:Testing performed by : [address] [address] Glucose 146 70 - 199 mg/dL DAY[facility] [...] was last revised 2022. Testing performed by: [address] [address] Calcium 9.3 8.5 - 10.3 mg/dL [facility] Comment:Testing performed by : [address] [address] Bilirubin, total 1.6(H) 0.1 - 1.2 mg/dL [facility] Comment:Testing performed by : [address] [address] Protein, pl 6.1(L) 6.5 - 8.5 g/dL [facility] Comment:Testing performed by : [address] [address] Albumin 3.8 3.5 - 5.0 g/dL [facility] Comment:Testing performed by : [address] [address] Alk phos 309(H) 40 - 130 Units/L [facility] Comment:Testing performed by : [address] [address] ALT 14 7 - 45 Units/L [facility] Comment:Testing performed by : [address] [address] AST 32 10 - 45 Units/L [facility] Comment:Testing performed by : [address] [address] Blood 11/17/2024 7:01 AM BERRY PICKER 11/17/2024 7:33 AM BERRY PICKER Ivan Vargas MD LAB BLOOD ORDERABLES Final Re sult Performing Organization Address [facility] de Phone Number MARY ALICE[address] [address] * (ABNORMAL) POCT glucose (11/16/2024 7:44 PM BERRY PICKER) Glucose, POC 205(H) 70 - 199 mg/dL Comment:Testing performed by : [address] [address] Glucose comment 1 Use This Result [facility] Comment:Testing performed by : [address], [address] Glucose comment 2 RN/MD Notified [facility] Comment:Testing performed by : [address] [address] Blood 11/16/2024 7:44 PM BERRY PICKER 11/16/2024 7:44 PM BERRY PICKER Ivan Vargas MD LAB POCT ORDERABLES - DEVICE Final Result Performing Organization Address [facility] de Phone Number [address] [address] * POCT glucose (11/16/2024 6:33 PM BERRY PICKER) Glucose, POC 155 70 - 199 mg/dL Comment:Testing performed by : [address] [address] Glucose comment 1 Use This Result [facility] Comment:Testing performed by : [address] [address] Glucose comment 2 RN/MD Notified [facility] Comment:Testing performed by : [address] [address] Blood 11/16/2024 6:33 PM BERRY PICKER 11/16/2024 6:33 PM BERRY PICKER Ivan Vargas MD LAB POCT ORDERABLES - DEVICE Final Result Performing Organization Address City/[facility]/ZIP Co de Phone Number [facility] [address] [facility] [place] [address] * (ABNORMAL) POCT glucose (11/16/2024 11:54 AM BERRY PICKER) Glucose, POC 203(H) 70 - 199 mg/dL Comment:Testing performed by : [address] [address] Glucose comment 1 Use This Result [facility] CARPIO Comment:Testing performed by : [address] [address] Glucose comment 2 RN/MD Notified [facility] Comment:Testing performed by : [address] [address] Blood 11/16/2024 11:5 4 AM BERRY PICKER 11/16/2024 11:54 AM BERRY PICKER Ivan Vargas MD LAB POCT ORDERABLES - DEVICE Final Result Performing Organization Address City/[facility]/ZIP Co de Phone Number [facility] [place] [address] * (ABNORMAL) eGFR (11/16/2024 9:56 AM BERRY PICKER) eGFR 26(L) >=60 mL/min/1. 73 m2 Comment: [...] was last reviewed 2021. Testing performed by: [address] [address] Blood 11/16/2024 9:56 AM BERRY PICKER 11/16/2024 10:30 AM BERRY PICKER us Ivan Vargas MD LAB BLOOD ORDERABLES Final Re sult [facility] Department of Laboratories [place], [place] [id number] * (ABNORMAL) Differential, auto (11/16/2024 9:56 AM BERRY PICKER) Neutrophil abs 4.2 1.5 - 6.5 K/cumm Comment:Testing performed by : [address] [address] Imm gran abs 0.1 0.0 - 0.1 K/cumm [facility] Comment:Testing performed by : [address] [address] Lymphocyte abs 0.5(L) 0.8 - 3.3 K/cumm [facility] Comment:Testing performed by : [address] [address] Monocyte abs 0.8 0.2 - 0.8 K/cumm [facility] Comment:Testing performed by : [address] [address] Eosinophil abs 0.6(H) 0.0 - 0.5 K/cumm [facility] Comment:Testing performed by : [address] [address] Basophil abs 0.1 0.0 - 0.1 K/cumm [facility] Comment:Testing performed by : [address] [address] Neutrophil pct 67.6 % [facility] Comment: Interpretive Data Percent cell count reference ranges are not reported, since discordance with absolute values may lead to misinterpretation of CBC data. Current Interpretive Data was last revised on 2018. Testing performed by: [address] [address] Imm gran pct 1.0 % [facility] Comment: Interpretive Data Percent cell count reference ranges are not reported, since discordance with absolute values may lead to misinterpretation of CBC data. Current Interpretive Data was last revised on 2018. Testing performed by: [address] [address] Lymphocyte pct 8.2 % [facility] Comment: Interpretive Data Percent cell count reference ranges are not reported, since discordance with absolute values may lead to misinterpretation of CBC data. Current Interpretive Data was last revised on 2018. Testing performed by: [address] [address] Monocyte pct 12.5 % [facility] Comment: Interpretive Data Percent cell count reference ranges are not reported, since discordance with absolute values may lead to misinterpretation of CBC data. Current Interpretive Data was last revised on 2018. Testing performed by: [address] [address] Eosinophil pct 9.6 % [facility] Comment: Interpretive Data Percent cell count reference ranges are not reported, since discordance with absolute values may lead to misinterpretation of CBC data. Current Interpretive Data was last revised on 2018. Testing performed by: [address] [address] Basophil pct 1.1 % [facility] Comment: Interpretive Data Percent cell count reference ranges are not reported, since discordance with absolute values may lead to misinterpretation of CBC data. Current Interpretive Data was last revised on 2018. Testing performed by: [address] [address] Blood 11/16/2024 9:56 AM BERRY PICKER 11/16/2024 10:29 AM BERRY PICKER us Ivan Vargas MD LAB BLOOD ORDERABLES Final Re sult [facility] [address] [facility] Department [place] [address] * (ABNORMAL) CBC with auto differential (11/16/2024 9:56 AM BERRY PICKER) WBC 6.2 3.8 - 9.9 K/cumm Comment:Testing performed by : [address] [address] Hgb 8.4(L) 11.9 - 15.5 g/dL [facility] Comment:Testing performed by : [address] [address] Hct 26.7(L) 35.6 - 45.5 % [facility] Comment:Testing performed by : [address] [address] Plt 216 150 - 400 K/cumm [facility] Comment:Testing performed by : [address] [address] MPV 11.1 9.1 - 12.3 fL [facility] Comment:Testing performed by : [address] [address] RBC 2.60(L) 3.90 - 5.20 M/cumm [facility] Comment:Testing performed by : [address] [address] MCV 102.7(H) 81.3 - 96.4 fL [facility] Comment:Testing performed by : [address] [address] MCH 32.3 27.1 - 33.3 pg [facility] Comment:Testing performed by : [address] [address] MCHC 31.5(L) 32.3 - 35.7 g/dL [facility] Comment:Testing performed by : [address] [address] RDW CV 16.6(H) 11.1 - 14.9 % [facility] CARPIO Comment:Testing performed by : [address] [address] RDW SD 61.2(H) 35.7 - 48.1 fL [facility] Comment:Testing performed by : [address] [address] NRBC abs 0.00 0.00 - 0.01 K/cumm [facility] CAR[facility] Comment:Testing performed by : [address] [address] Blood 11/16/2024 9:56 AM BERRY PICKER 11/16/2024 10:29 AM BERRY PICKER Ivan Vargas MD LAB BLOOD ORDERABLES Final Re sult Performing Organization Address [facility] de Phone Number [place] [phone] [facility] [place] [address] * Hemoglobin A1c (11/16/2024 9:56 AM BERRY PICKER) [facility] Hgb A1C 5.4 4.0 - 5.6 % Comment:Testing performed by : [address] [address] Estimated Average Glucose 108 mg/dL [facility] CARPIO Comment: The ADA recommends reporting an estimated Average Glucose (eAG) with all Hemoglobin A1c results using the equation derived from a study of 507 normal and diabetic adults. Minority populations were underrepresented and children were not included. (Diabetes Care 31:0902-4949, 2008). The eAG is not equivalent to a fasting glucose. Testing performed by: [address] [address] Blood 11/16/2024 9:56 AM BERRY PICKER 11/16/2024 10:29 AM BERRY PICKER us Ivan Vargas MD LAB BLOOD ORDERABLES Final Re sult Performing Organization Address [facility] Co de Phone Number [place] [phone] [facility] [place] [address] * (ABNORMAL) Comprehensive metabolic panel (11/16/2024 9:56 AM BERRY PICKER) Sodium 133(L) 135 - 145 mmol/L Comment:Testing performed by : [address] [address] Potassium, pl 3.1(L) 3.3 - 4.9 mmol/L [facility] Comment:Testing performed by : [address] [address] Chloride 92(L) 97 - 110 mmol/L [facility] Comment:Testing performed by : [address] [address] CO2 27 22 - 32 mmol/L [facility] Comment:Testing performed by : [address] [address] Anion gap 14 2 - 15 mmol/L [facility] Comment:Testing performed by : [address] [address] BUN 39(H) 6 - 25 mg/dL [facility] Comment:Testing performed by : [address] [address] Creatinine 2.04(H) 0.60 - 1.10 mg/dL [facility] Comment:Testing performed by : [address] [address] Glucose 136 70 - 199 mg/dL [facility] Comment: Interpretive Data Fasting glucose [...] was last revised 2022. Testing performed by: [address] [address] Calcium 8.9 8.5 - 10.3 mg/dL [facility] Comment:Testing performed by : [address] [address] Bilirubin, total 1.7(H) 0.1 - 1.2 mg/dL [facility] Comment:Testing performed by : [address] [address] Protein, pl 6.6 6.5 - 8.5 g/dL [facility] Comment:Testing performed by : [address], [place]., [address] Albumin 4.2 3.5 - 5.0 g/dL [facility] Comment:Testing performed by : [address], [place]., [address] Alk phos 247(H) 40 - 130 Units/L [facility] Comment:Testing performed by : [address] [address] ALT 12 7 - 45 Units/L [facility] Comment:Testing performed by : [address] [address] AST 30 10 - 45 Units/L [facility] Comment:Testing performed by : [address] [address] Blood 11/16/2024 9:56 AM BERRY PICKER 11/16/2024 10:30 AM BERRY PICKER Ivan Vargas MD LAB BLOOD ORDERABLES Final Re sult [facility] [address] [facility] Department of Laboratories [place], [place] [id number] * POCT glucose (11/16/2024 8:53 AM BERRY PICKER) [facility] Glucose, POC 146 70 - 199 mg/dL Comment:Testing performed by : [address] [address] Glucose comment 1 Use This Result [facility] Comment:Testing performed by : [address] [address] Glucose comment 2 RN/MD Notified [facility] Comment:Testing performed by : [address] [address] Blood 11/16/2024 8:53 AM BERRY PICKER 11/16/2024 8:53 AM BERRY PICKER Ivan Vargas MD LAB POCT ORDERABLES - DEVICE Final Result Performing Organization Address [facility] de Phone Number DAY[facility] [address] [address] * POCT glucose (11/16/2024 12:30 AM BERRY PICKER) Glucose, POC 156 70 - 199 mg/dL Comment:Testing performed by : [facility], [address] [place] [address]., [address] Glucose comment 1 Use This Result [facility] Comment:Testing performed by : [address] [address] Glucose comment 2 RN/MD Notified [facility] Comment:Testing performed by : [address] [address] Blood 11/16/2024 12:3 0 AM BERRY PICKER 11/16/2024 12:30 AM BERRY PICKER Ivan Vargas MD LAB POCT ORDERABLES - DEVICE Final Result Performing Organization Address [facility] Co de Phone Number DAY[facility] [address] [address] * POCT glucose (11/15/2024 8:35 PM BERRY PICKER) Glucose, POC 196 70 - 199 mg/dL Comment:Testing performed by : [address] [address] Glucose comment 1 Use This Result [facility] Comment:Testing performed by : [address] [address] Glucose comment 2 RN/MD Notified [facility] Comment:Testing performed by : [address] [address] Blood 11/15/2024 8:35 PM BERRY PICKER 11/15/2024 8:35 PM BERRY PICKER us Ivan Vargas MD LAB POCT ORDERABLES - DEVICE Final Result Performing Organization Address City/[facility]/ZIP Co de Phone Number DAY[facility] [address] [place] [address] * POCT glucose (11/15/2024 5:29 PM BERRY PICKER) Glucose, POC 152 70 - 199 mg/dL Comment:Testing performed by : [address] [address] Blood 11/15/2024 5:29 PM BERRY PICKER 11/15/2024 5:29 PM BERRY PICKER us Ivan Vargas MD LAB POCT ORDERABLES - DEVICE Final Result Performing Organization Address City/[facility] Co de Phone Number DAY[facility] [address] [place] [address] * POCT glucose (11/15/2024 1:28 PM BERRY PICKER) Glucose, POC 154 70 - 199 mg/dL Comment:Testing performed by : [address] [address] Blood 11/15/2024 1:28 PM BERRY PICKER 11/15/2024 1:28 PM BERRY PICKER us Ivan Vargas MD LAB POCT ORDERABLES - DEVICE Final Result Performing Organization Address City/[facility]/ZIP Co de Phone Number DAY[facility] [address] [place] [address] * POCT glucose (11/15/2024 8:56 AM BERRY PICKER) Glucose, POC 130 70 - 199 mg/dL Comment:Testing performed by : [address] [address] Blood 11/15/2024 8:56 AM BERRY PICKER 11/15/2024 8:56 AM BERRY PICKER us Ivan Vargas MD LAB POCT ORDERABLES - DEVICE Final Result Performing Organization Address [facility] de Phone Number [facility] [place] [address] * (ABNORMAL) eGFR (11/15/2024 4:35 AM BERRY PICKER) Pathologist [facility] eGFR 24(L) >=60 mL/min/1. 73 m2 [...] was last reviewed 2021. Testing performed by: [address] [address] Blood 11/15/2024 4:35 AM BERRY PICKER 11/15/2024 6:10 AM BERRY PICKER us Ivan Vargas MD LAB BLOOD ORDERABLES Final Re sult Performing Organization Address [facility] Co de Phone Number [facility] Department [place] [address] * (ABNORMAL) Differential, auto (11/15/2024 4:35 AM BERRY PICKER) Pathologist [facility] Neutrophil abs 5.0 1.5 - 6.5 K/cumm Comment:Testing performed by : [address] [address] Imm gran abs 0.1 0.0 - 0.1 K/cumm [facility] Comment:Testing performed by : [address] [address] Lymphocyte abs 0.7(L) 0.8 - 3.3 K/cumm [facility] Comment:Testing performed by : [address] [address] Monocyte abs 1.0(H) 0.2 - 0.8 K/cumm [facility] Comment:Testing performed by : [address] [address] Eosinophil abs 0.6(H) 0.0 - 0.5 K/cumm [facility] Comment:Testing performed by : [address] [address] Basophil abs 0.1 0.0 - 0.1 K/cumm [facility] Comment:Testing performed by : [address] [address] Neutrophil pct 67.6 % [facility] Comment: Interpretive Data Percent cell count reference ranges are not reported, since discordance with absolute values may lead to misinterpretation of CBC data. Current Interpretive Data was last revised on 2018. Testing performed by: [address] [address] Imm gran pct 0.8 % [facility] Comment: Interpretive Data Percent cell count reference ranges are not reported, since discordance with absolute values may lead to misinterpretation of CBC data. Current Interpretive Data was last revised on 2018. Testing performed by: [address] [address] Lymphocyte pct 8.8 % [facility] Comment: Interpretive Data Percent cell count reference ranges are not reported, since discordance with absolute values may lead to misinterpretation of CBC data. Current Interpretive Data was last revised on 2018. Testing performed by: [address] [address] Monocyte pct 13.0 % [facility] Comment: Interpretive Data Percent cell count reference ranges are not reported, since discordance with absolute values may lead to misinterpretation of CBC data. Current Interpretive Data was last revised on 2018. Testing performed by: [address] [address] Eosinophil pct 8.7 % [facility] Comment: Interpretive Data Percent cell count reference ranges are not reported, since discordance with absolute values may lead to misinterpretation of CBC data. Current Interpretive Data was last revised on 2018. Testing performed by: [address] [address] Basophil pct 1.1 % [facility] Comment: Interpretive Data Percent cell count reference ranges are not reported, since discordance with absolute values may lead to misinterpretation of CBC data. Current Interpretive Data was last revised on 2018. Testing performed by: [address] [address] Blood 11/15/2024 4:35 AM BERRY PICKER 11/15/2024 6:15 AM BERRY PICKER us Ivan Vargas MD LAB BLOOD ORDERABLES Final Re sult [facility] [address] [facility] Department [place] [address] * (ABNORMAL) CBC with auto differential (11/15/2024 4:35 AM BERRY PICKER) WBC 7.4 3.8 - 9.9 K/cumm Comment:Testing performed by : [address] [address] Hgb 8.6(L) 11.9 - 15.5 g/dL [facility] CARPIO Comment:Testing performed by : [address] [address] Hct 26.5(L) 35.6 - 45.5 % [facility] Comment:Testing performed by : [address] [address] Plt 238 150 - 400 K/cumm [facility] CARP[facility] Comment:Testing performed by : [address] [address] MPV 11.0 9.1 - 12.3 fL [facility] Comment:Testing performed by : [address] [address] RBC 2.59(L) 3.90 - 5.20 M/cumm [facility] Comment:Testing performed by : [address] [address] MCV 102.3(H) 81.3 - 96.4 fL [facility] Comment:Testing performed by : [address] [address] MCH 33.2 27.1 - 33.3 pg [facility] Comment:Testing performed by : [address] [address] MCHC 32.5 32.3 - 35.7 g/dL [facility] Comment:Testing performed by : [address], [address] RDW CV 16.4(H) 11.1 - 14.9 % [facility] Comment:Testing performed by : [address], [address] RDW SD 60.1(H) 35.7 - 48.1 fL [facility] Comment:Testing performed by : [address] [address] NRBC abs 0.00 0.00 - 0.01 K/cumm [facility] Comment:Testing performed by : [address] [address] Blood 11/15/2024 4:35 AM BERRY PICKER 11/15/2024 6:15 AM BERRY PICKER us Ivan Vargas MD LAB BLOOD ORDERABLES Final Re sult [facility] [address] [facility] Department of Laboratories [place], [place] [id number] * (ABNORMAL) Protime-INR (11/15/2024 4:35 AM BERRY PICKER) PT 16.8(H) 12.0 - 14.6 sec Comment: Ref Range High Testing performed by: [address], [address] INR 1.4(H) 0.9 - 1.2 [facility] Comment: Ref Range High Interpretive data Oral anticoagulant therapeutic ranges: Venous thromboembolism prophylaxis or treatment: 2.0-3.0 CARDIOLOGY Standard range: 2.0-3.0 High-intensity range: 2.5-3.5 Refer to indication-specific guidelines for appropriate target ranges for prosthetic heart valve replacement. Current interpretive data was last revised on 2019. Testing performed by: [address] [address] Blood 11/15/2024 4:35 AM BERRY PICKER 11/15/2024 6:10 AM BERRY PICKER Bravo Mckenzie MD LAB BLOOD ORDERABLES Final Re sult Performing Organization Address City/[facility] Co de Phone Number [address] [place] [address] * Magnesium (11/15/2024 4:35 AM BERRY PICKER) Pathologist [facility] Magnesium 1.7 1.4 - 2.5 mg/dL Comment:Testing performed by : [address] [address] Blood 11/15/2024 4:35 AM BERRY PICKER 11/15/2024 6:10 AM BERRY PICKER Ivan Vargas MD LAB BLOOD ORDERABLES Final Re sult Performing Organization Address [facility] Co de Phone Number [address] [address] * (ABNORMAL) Comprehensive metabolic panel (11/15/2024 4:35 AM BERRY PICKER) Sodium 135 135 - 145 mmol/L Comment:Testing performed by : [address] [address] Potassium, pl 3.1(L) 3.3 - 4.9 mmol/L [facility] Comment:Testing performed by : [address] [address] Chloride 89(L) 97 - 110 mmol/L [facility] Comment:Testing performed by : [address] [address] CO2 27 22 - 32 mmol/L [facility] Comment:Testing performed by : [address] [address] Anion gap 19(H) 2 - 15 mmol/L [facility] Comment:Testing performed by : [address] [address] BUN 37(H) 6 - 25 mg/dL [facility] Comment:Testing performed by : [address] [address] Creatinine 2.20(H) 0.60 - 1.10 mg/dL [facility] Comment:Testing performed by : [address] [address] Glucose 103 70 - 199 mg/dL [facility] Comment: Interpretive Data Fasting glucose [...] was last revised 2022. Testing performed by: [address] [address] Calcium 8.4(L) 8.5 - 10.3 mg/dL DAYANA Comment:Testing performed by : [address] [address] Bilirubin, total 1.6(H) 0.1 - 1.2 mg/dL [facility] Comment:Testing performed by : [address] [address] Protein, pl 6.1(L) 6.5 - 8.5 g/dL DAYANA Comment:Testing performed by : [address] [address] Albumin 3.7 3.5 - 5.0 g/dL DAYANA Comment:Testing performed by : [address] [address] Alk phos 267(H) 40 - 130 Units/L DAYANA CARPIO Comment:Testing performed by : [address] [address] ALT 14 7 - 45 Units/L DAYANA CARPIO Comment:Testing performed by : [address], [address] AST 30 10 - 45 Units/L DAYANA CARPIO Comment:Testing performed by : [address] [address] Blood 11/15/2024 4:35 AM BERRY PICKER 11/15/2024 6:10 AM BERRY PICKER Ivan Vargas MD LAB BLOOD ORDERABLES Final Re sult Performing Organization Address [facility] Co de Phone Number MARY ALICE[address] [place] [address] * POCT glucose (11/14/2024 9:28 PM BERRY PICKER) Glucose, POC 138 70 - 199 mg/dL Comment:Testing performed by : [address] [address] Glucose comment 1 Use This Result DAYANA CARPIO Comment:Testing performed by : [address] [address] Glucose comment 2 RN/MD Notified DAYANA Comment:Testing performed by : [address] [address] Blood 11/14/2024 9:28 PM BERRY PICKER 11/14/2024 9:28 PM BERRY PICKER Ivan Vargas MD LAB POCT ORDERABLES - DEVICE Final Result [address] [address] * POCT glucose (11/14/2024 5:48 PM BERRY PICKER) Glucose, POC 120 70 - 199 mg/dL Comment:Testing performed by : [address] [address] Glucose comment 1 Use This Result DAYANA CARPIO Comment:Testing performed by : [address] [address] Glucose comment 2 RN/MD Notified DAYANA CARPIO Comment:Testing performed by : [address] [address] Blood 11/14/2024 5:48 PM BERRY PICKER 11/14/2024 5:48 PM BERRY PICKER Ivan Vargas MD LAB POCT ORDERABLES - DEVICE Final Result Performing Organization Address [facility] Co de Phone Number MARY ALICE[address] [place] [address] * Sodium, urine, random (11/14/2024 3:29 PM BERRY PICKER) Sodium, ur 42 mmol/L Comment: Interpretive Data No reference range established. Current interpretive data was last revised 2019. Urine 11/14/2024 3:29 PM BERRY PICKER 11/14/2024 6:41 PM BERRY PICKER Bravo Mckenzie MD LAB URINE ORDERABLES Final Re sult Performing Organization Address [facility] Co de Phone Number [address] [address] * (ABNORMAL) Urinalysis reflex to microscopic and culture Urine, clean voided (11/14/2024 3:28 PM BERRY PICKER) Color, ur Yellow Yellow Comment:Testing performed by : [address] [address] Clarity, ur Clear Clear DAYANA CARPIO Comment:Testing performed by : [address] [address] Specific gravity, ur 1.018 1.003 - 1.030 DAYANA CARPIO Comment:Testing performed by : [address] [address] pH, urine 5.5 DAYANA Comment: Interpretive Data U rine pH is affected by diet, medications, systemic acid-base disturbances, and renal tubular function. pH may affect urinary stone formation. For example, urine pH below 6.0 may help reduce the tendency for calcium phosphate stones and pH greater than 6.0 may reduce the tendency for uric acid stone formation. Source: [facility] Current Interpretive Data was last revised on 2017 Testing performed by: [facility], [address] [place] [address], [place]., [address] Protein, ur ql Negative Negative DAYANA Comment:Testing performed by : [facility], [address] [place] [address], [place]., [address] Glucose, ur ql 1+(A) Negative DAYANA Comment:Testing performed by : [address], [place]., [address] Ketones, ur Negative Negative DAYANA Comment:Testing performed by : [address], [place]., [address] Bilirubin, ur Negative Negative DAYANA Comment:Testing performed by : [address], [place]., [address] Blood, ur Negative Negative DAYANA Comment:Testing performed by : [address], [place]., [address] Urobilinogen, ur <2.0 <2.0 mg/dL DAYANA Comment:Testing performed by : [address], [place]., [address] Nitrite, ur Negative Negative DAYANA Comment:Testing performed by : [address], [place]., [address] Leukocyte esterase, ur Negative Negative DAYANA Comment:Testing performed by : [address], [place]., [address] UA reflex comment Reflex conditions for microscopic UA and culture not met. DAYANA Comment:Testing performed by : [address], [place]., [address] Urine, clean voided 11/14/2024 3:28 PM BERRY PICKER 11/14/2024 3:49 PM BERRY PICKER us Ivan Vargas MD LAB MICROBIOLOGY - GENERAL OR DERABLES Final Result Performing Organization Address [facility] Co de Phone Number DAYANA [address] [address] * Ammonia (11/14/2024 2:16 PM BERRY PICKER) Ammonia 34 <=50 mcmol/L Comment: Please note on 02/21/2024 the unit of measure changed from mcg/dL to mcmol/L. Current Interpretive Data was last revised on 2024 Testing performed by: [address] [address] Blood 11/14/2024 2:16 PM BERRY PICKER 11/14/2024 2:22 PM BERRY PICKER Ivan Vargas MD LAB BLOOD ORDERABLES Final Re sult Performing Organization Address [facility] Co de Phone Number DAYANA [address] [address] * POCT glucose (11/14/2024 11:21 AM BERRY PICKER) Glucose, POC 129 70 - 199 mg/dL Comment:Testing performed by : [address] [address] Glucose comment 1 Use This Result DAYANA CARPIO Comment:Testing performed by : [address] [address] Glucose comment 2 RN/MD Notified DAYANA Comment:Testing performed by : [address] [address] Blood 11/14/2024 11:2 1 AM BERRY PICKER 11/14/2024 11:21 AM BERRY PICKER Ivan Vargas MD LAB POCT ORDERABLES - DEVICE Final Result Performing Organization Address [facility] Co de Phone Number DAYANA [address] [address] * POCT glucose (11/14/2024 8:11 AM BERRY PICKER) Pathologist [facility] Glucose, POC 107 70 - 199 mg/dL Comment:Testing performed by : [facility], [address] [place] [address]., [address] Glucose comment 1 Use This Result DAYANA CARPIO Comment:Testing performed by : [facility], [address] [place] [address]., [address] Blood 11/14/2024 8:11 AM BERRY PICKER 11/14/2024 8:11 AM BERRY PICKER us Ivan Vargas MD LAB POCT ORDERABLES - DEVICE Final Result DAYANA CARPIO [address] [facility] [place] [address] * (ABNORMAL) eGFR (11/14/2024 5:03 AM BERRY PICKER) [facility] eGFR 24(L) >=60 mL/min/1. 73 m2 Comment: [...] was last reviewed 2021. Testing performed by: [address] [address] Blood 11/14/2024 5:03 AM BERRY PICKER 11/14/2024 5:33 AM BERRY PICKER Ivan Vargas MD LAB BLOOD ORDERABLES Final Re sult DAYANA [address] [facility] Department [place] [address] * (ABNORMAL) Differential, auto (11/14/2024 5:03 AM BERRY PICKER) Neutrophil abs 4.8 1.5 - 6.5 K/cumm Comment:Testing performed by : [address] [address] Imm gran abs 0.0 0.0 - 0.1 K/cumm DAYANA Comment:Testing performed by : [address] [address] Lymphocyte abs 0.7(L) 0.8 - 3.3 K/cumm DAYANA Comment:Testing performed by : [address] [address] Monocyte abs 1.0(H) 0.2 - 0.8 K/cumm DAYANA Comment:Testing performed by : [address] [address] Eosinophil abs 0.7(H) 0.0 - 0.5 K/cumm DAYANA Comment:Testing performed by : [address] [address] Basophil abs 0.1 0.0 - 0.1 K/cumm DAYANA Comment:Testing performed by : [address] [address] Neutrophil pct 65.6 % DAYANA Comment: Interpretive Data Percent cell count reference ranges are not reported, since discordance with absolute values may lead to misinterpretation of CBC data. Current Interpretive Data was last revised on 2018. Testing performed by: [address] [address] Imm gran pct 0.4 % DAYANA Comment: Interpretive Data Percent cell count reference ranges are not reported, since discordance with absolute values may lead to misinterpretation of CBC data. Current Interpretive Data was last revised on 2018. Testing performed by: [address] [address] Lymphocyte pct 10.0 % CERNER Comment: Interpretive Data Percent cell count reference ranges are not reported, since discordance with absolute values may lead to misinterpretation of CBC data. Current Interpretive Data was last revised on 2018. Testing performed by: [address] [address] Monocyte pct 13.4 % DAYANA Comment: Interpretive Data Percent cell count reference ranges are not reported, since discordance with absolute values may lead to misinterpretation of CBC data. Current Interpretive Data was last revised on 2018. Testing performed by: [address] [address] Eosinophil pct 9.4 % DAYANA Comment: Interpretive Data Percent cell count reference ranges are not reported, since discordance with absolute values may lead to misinterpretation of CBC data. Current Interpretive Data was last revised on 2018. Testing performed by: [address] [address] Basophil pct 1.2 % DAYANA Comment: Interpretive Data Percent cell count reference ranges are not reported, since discordance with absolute values may lead to misinterpretation of CBC data. Current Interpretive Data was last revised on 2018. Testing performed by: [address] [address] Blood 11/14/2024 5:03 AM BERRY PICKER 11/14/2024 5:34 AM BERRY PICKER us Ivan Vargas MD LAB BLOOD ORDERABLES Final Re sult [facility] [address] [facility] Department [place] [address] * (ABNORMAL) CBC with auto differential (11/14/2024 5:03 AM BERRY PICKER) WBC 7.3 3.8 - 9.9 K/cumm Comment:Testing performed by : [address] [address] Hgb 8.5(L) 11.9 - 15.5 g/dL DAYANA Comment:Testing performed by : [address] [address] Hct 26.2(L) 35.6 - 45.5 % DAYANA Comment:Testing performed by : [address] [address] Plt 212 150 - 400 K/cumm DAYANA Comment:Testing performed by : [address] [address] MPV 10.7 9.1 - 12.3 fL DAYANA Comment:Testing performed by : [address], [address] RBC 2.57(L) 3.90 - 5.20 M/cumm DAYANA Comment:Testing performed by : [address] [address] MCV 101.9(H) 81.3 - 96.4 fL DAYANA Comment:Testing performed by : [address], [address] MCH 33.1 27.1 - 33.3 pg DAYANA Comment:Testing performed by : [address], [address] MCHC 32.4 32.3 - 35.7 g/dL DAYANA Comment:Testing performed by : [address], [address] RDW CV 16.8(H) 11.1 - 14.9 % DAYANA Comment:Testing performed by : [address], [address] RDW SD 60.4(H) 35.7 - 48.1 fL DAYANA Comment:Testing performed by : [address], [address] NRBC abs 0.00 0.00 - 0.01 K/cumm DAYANA Comment:Testing performed by : [address], [address] Blood 11/14/2024 5:03 AM BERRY PICKER 11/14/2024 5:34 AM BERRY PICKER Ivan Vargas MD LAB BLOOD ORDERABLES Final Re sult DAYANA [address] [facility] Department [place] [address] * (ABNORMAL) Comprehensive metabolic panel (11/14/2024 5:03 AM BERRY PICKER) Sodium 135 135 - 145 mmol/L Comment:Testing performed by : [address] [address] Potassium, pl 3.5 3.3 - 4.9 mmol/L DAYANA Comment:Testing performed by : [address] [address] Chloride 91(L) 97 - 110 mmol/L DAYANA Comment:Testing performed by : [address] [address] CO2 28 22 - 32 mmol/L DAYANA Comment:Testing performed by : [address] [address] Anion gap 16(H) 2 - 15 mmol/L DAYANA Comment:Testing performed by : [address] [address] BUN 33(H) 6 - 25 mg/dL DAYANA Comment:Testing performed by : [address] [address] Creatinine 2.20(H) 0.60 - 1.10 mg/dL DAYANA Comment:Testing performed by : [address] [address] Glucose 94 70 - 199 mg/dL DAYANA [...] was last revised 2022. Testing performed by: [address] [place] [address] Calcium 8.3(L) 8.5 - 10.3 mg/dL DAYANA Comment:Testing performed by : [address] [address] Bilirubin, total 1.4(H) 0.1 - 1.2 mg/dL DAYANA Comment:Testing performed by : [address] [address] Protein, pl 6.0(L) 6.5 - 8.5 g/dL DAYANA Comment:Testing performed by : [address] [address] Albumin 3.6 3.5 - 5.0 g/dL DAYANA Comment:Testing performed by : [address] [address] Alk phos 256(H) 40 - 130 Units/L DAYANA Comment:Testing performed by : [address] [address] ALT 17 7 - 45 Units/L DAYANA Comment:Testing performed by : [address] [address] AST 30 10 - 45 Units/L DAYANA Comment:Testing performed by : [address] [address] Blood 11/14/2024 5:03 AM BERRY PICKER 11/14/2024 5:33 AM BERRY PICKER us Ivan Vargas MD LAB BLOOD ORDERABLES Final Re sult MARY ALICENIKOS [address] [facility] Department of Laboratories [place], [place] [id number] * POCT glucose (11/14/2024 4:41 AM BERRY PICKER) [facility] Glucose, POC 121 70 - 199 mg/dL Comment:Testing performed by : [address] [address] Glucose comment 1 Use This Result DAYANA Comment:Testing performed by : [address] [address] Blood 11/14/2024 4:41 AM BERRY PICKER 11/14/2024 4:41 AM BERRY PICKER Ivan Vargas MD LAB POCT ORDERABLES - DEVICE Final Result Performing Organization Address [facility] Co de Phone Number DAYANA [address] [address] * POCT glucose (11/13/2024 7:59 PM BERRY PICKER) Glucose, POC 155 70 - 199 mg/dL Comment:Testing performed by : [address] [address] Glucose comment 1 Use This Result DAYANA Comment:Testing performed by : [address] [address] Blood 11/13/2024 7:59 PM BERRY PICKER 11/13/2024 7:59 PM BERRY PICKER Result [facility] Ivan Vargas MD LAB POCT ORDERABLES - DEVICE Final Result Performing Organization Address [facility] de Phone Number DAYANA [address] [address] * POCT glucose (11/13/2024 5:16 PM BERRY PICKER) Glucose, POC 131 70 - 199 mg/dL Comment:Testing performed by : [address] [address] Glucose comment 1 Use This Result DAYANA Comment:Testing performed by : [address] [address] Glucose comment 2 RN/MD Notified DAYANA Comment:Testing performed by : [address] [address] Blood 11/13/2024 5:16 PM BERRY PICKER 11/13/2024 5:16 PM BERRY PICKER Ivan Vargas MD LAB POCT ORDERABLES - DEVICE Final Result DAYANA MH [address] [facility] [place] [address] * CT Knee Left WO Contrast (11/13/2024 4:52 PM BERRY PICKER) Anatomical Region Laterality Modality Lower Extremities Left Computed Tomog marquis 11/13/2024 5:29 PM BERRY PICKER Narrative 11/13/2024 5:36 PM BERRY PICKER EXAM DESCRIPTION: CT KNEE LEFT WO CONTRAST [...] Ed Ny M.D. JA: BETH Report ID: [id number] Reading Location: [id number] Procedure Note Ed Ny MD - 11/13/2024 [...] Ed Ny M.D. JA: BETH Report ID: [id number] Reading Location: [id number] us Ivan Vargas MD IMG CT PROCEDURES Final Resul t * US Chest (11/13/2024 2:21 PM BERRY PICKER) Anatomical Region Laterality Modality Chest N/A Ultrasound 11/13/2024 4:29 PM BERRY PICKER Narrative 11/13/2024 4:32 PM BERRY PICKER EXAM DESCRIPTION: US CHEST REASON FOR STUDY: Right pleural effusion, assess for loculations TECHNIQUE: A Dynamic assessment was performed of the right chest by the hotel desk clerk, with selected grayscale images acquired and recorded [...] Will Stahl M.D. MZ: MZ Report ID: [id number] Reading Location: [place] [address] Procedure Note Will Stahl MD - 11/13/2024 EXAM DESCRIPTION: US CHEST REASON FOR STUDY: Right pleural effusion, assess for loculations TECHNIQUE: A Dynamic assessment was performed of the right chest by the hotel desk clerk, with selected grayscale images acquired and recorded [...] Will Stahl M.D. MZ: MZ Report ID: [id number] Reading Location: [place] [address] us Ivan Vargas MD IM US PROCEDURES Final Resul t * POCT glucose (11/13/2024 2:13 PM BERRY PICKER) [facility] Signature Glucose, POC 127 70 - 199 mg/dL Comment:Testing performed by : [address] [address] Glucose comment 1 Use This Result DAYANA CARPIO Comment:Testing performed by : [address] [address] Glucose comment 2 RN/MD Notified DAYANA CARPIO Comment:Testing performed by : [address] [address] Blood 11/13/2024 2:13 PM BERRY PICKER 11/13/2024 2:13 PM BERRY PICKER Ivan Vargas MD LAB POCT ORDERABLES - DEVICE Final Result Performing Organization Address City/State/[facility] Co ms Phone Number DAYANA [address] [facility] Department [place] [address] * FL Fluoro Guided Aspiration Knee Left (11/13/2024 1:30 PM BERRY PICKER) Anatomical Region Laterality Modality Knee Left Computed Radiogr aphy, Computed Radiography 11/13/2024 1:57 PM BERRY PICKER Narrative 11/13/2024 2:11 PM BERRY PICKER EXAM DESCRIPTION: FL FLUORO GUIDED ASPIRATION KNEE [...] Kedar Corrales M.D. MM: MM Report ID: [id number] Reading Location: [id number] Procedure Note Kedar Corrales MD - 11/13/2024 [...] Kedar Corrales M.D. MM: MM Report ID: [id number] Reading Location: [id number] Ivan Vargas MD IM FLUOROSCOPY PROCEDURES Fi nal Result * (ABNORMAL) eGFR (11/13/2024 9:02 AM BERRY PICKER) eGFR 34(L) >=60 mL/min/1. 73 m2 Comment: [...] was last reviewed 2021. Testing performed by: [address] [address] Blood 11/13/2024 9:02 AM BERRY PICKER 11/13/2024 10:02 AM BERRY PICKER us Ivan Vargas MD LAB BLOOD ORDERABLES Final Re sult DAYANA [address] [facility] Department [place] [address] * (ABNORMAL) Differential, auto (11/13/2024 9:02 AM BERRY PICKER) Neutrophil abs 4.3 1.5 - 6.5 K/cumm Comment:Testing performed by : [address] [address] Imm gran abs 0.0 0.0 - 0.1 K/cumm DAYANA Comment:Testing performed by : [address] [address] Lymphocyte abs 0.7(L) 0.8 - 3.3 K/cumm DAYANA Comment:Testing performed by : [address] [address] Monocyte abs 0.9(H) 0.2 - 0.8 K/cumm DAYANA Comment:Testing performed by : [address] [address] Eosinophil abs 0.4 0.0 - 0.5 K/cumm DAYANA Comment:Testing performed by : [address] [address] Basophil abs 0.1 0.0 - 0.1 K/cumm CERNIKOS Comment:Testing performed by : [address] [address] Neutrophil pct 66.9 % [facility] Comment: Interpretive Data Percent cell count reference ranges are not reported, since discordance with absolute values may lead to misinterpretation of CBC data. Current Interpretive Data was last revised on 2018. Testing performed by: [address] [address] Imm gran pct 0.6 % [facility] Comment: Interpretive Data Percent cell count reference ranges are not reported, since discordance with absolute values may lead to misinterpretation of CBC data. Current Interpretive Data was last revised on 2018. Testing performed by: [address] [address] Lymphocyte pct 11.6 % [facility] Comment: Interpretive Data Percent cell count reference ranges are not reported, since discordance with absolute values may lead to misinterpretation of CBC data. Current Interpretive Data was last revised on 2018. Testing performed by: [address] [address] Monocyte pct 14.3 % [facility] Comment: Interpretive Data Percent cell count reference ranges are not reported, since discordance with absolute values may lead to misinterpretation of CBC data. Current Interpretive Data was last revised on 2018. Testing performed by: [address] [address] Eosinophil pct 5.5 % CERNIKOS Comment: Interpretive Data Percent cell count reference ranges are not reported, since discordance with absolute values may lead to misinterpretation of CBC data. Current Interpretive Data was last revised on 2018. Testing performed by: [address] [address] Basophil pct 1.1 % [facility] Comment: Interpretive Data Percent cell count reference ranges are not reported, since discordance with absolute values may lead to misinterpretation of CBC data. Current Interpretive Data was last revised on 2018. Testing performed by: [address] [address] Blood 11/13/2024 9:02 AM BERRY PICKER 11/13/2024 10:03 AM BERRY PICKER us Ivan Vargas MD LAB BLOOD ORDERABLES Final Re sult DAYANA [address] [facility] Department [place] [address] * (ABNORMAL) CBC with auto differential (11/13/2024 9:02 AM BERRY PICKER) WBC 6.4 3.8 - 9.9 K/cumm Comment:Testing performed by : [address] [address] Hgb 8.4(L) 11.9 - 15.5 g/dL DAYANA Comment:Testing performed by : [address] [address] Hct 25.2(L) 35.6 - 45.5 % DAYANA Comment:Testing performed by : [address] [address] Plt 196 150 - 400 K/cumm DAYANA Comment:Testing performed by : [address] [address] MPV 10.5 9.1 - 12.3 fL DAYANA Comment:Testing performed by : [address] [address] RBC 2.52(L) 3.90 - 5.20 M/cumm DAYANA Comment:Testing performed by : [address] [address] MCV 100.0(H) 81.3 - 96.4 fL DAYANA Comment:Testing performed by : [address] [address] MCH 33.3 27.1 - 33.3 pg DAYANA CARPIO Comment:Testing performed by : [address] [address] MCHC 33.3 32.3 - 35.7 g/dL DAYANA CARPIO Comment:Testing performed by : [address] [address] RDW CV 16.8(H) 11.1 - 14.9 % DAYANA CARPIO Comment:Testing performed by : [address] [address] RDW SD 59.5(H) 35.7 - 48.1 fL DAYANA Comment:Testing performed by : [address] [address] NRBC abs 0.00 0.00 - 0.01 K/cumm DAYANA Comment:Testing performed by : [address] [address] Blood 11/13/2024 9:02 AM BERRY PICKER 11/13/2024 10:03 AM BERRY PICKER Ivan Vargas MD LAB BLOOD ORDERABLES Final Re sult Performing Organization Address City/[facility]/ZIP Co de Phone Number [address] [place] [address] * Magnesium (11/13/2024 9:02 AM BERRY PICKER) Pathologist [facility] Magnesium 1.5 1.4 - 2.5 mg/dL Comment:Testing performed by : [address] [address] Blood 11/13/2024 9:02 AM BERRY PICKER 11/13/2024 10:02 AM BERRY PICKER Ivan Vargas MD LAB BLOOD ORDERABLES Final Re sult [address] [address] * (ABNORMAL) Comprehensive metabolic panel (11/13/2024 9:02 AM BERRY PICKER) Sodium 135 135 - 145 mmol/L Comment:Testing performed by : [facility], [address] [place] [address]., [address] Potassium, pl 3.6 3.3 - 4.9 mmol/L [facility] Comment:Testing performed by : [facility], [address] [place] [address], [place]., [address] Chloride 92(L) 97 - 110 mmol/L [facility] Comment:Testing performed by : [address], [place]., [address] CO2 29 22 - 32 mmol/L [facility] Comment:Testing performed by : [address], [place]., [address] Anion gap 14 2 - 15 mmol/L [facility] Comment:Testing performed by : [address] [address] BUN 28(H) 6 - 25 mg/dL [facility] Comment:Testing performed by : [address] [address] Creatinine 1.60(H) 0.60 - 1.10 mg/dL [facility] Comment:Testing performed by : [address] [address] Glucose 114 70 - 199 mg/dL [facility] Comment: Interpretive Data Fasting glucose [...] was last revised 2022. Testing performed by: [address] [address] Calcium 8.9 8.5 - 10.3 mg/dL [facility] Comment:Testing performed by : [address] [address] Bilirubin, total 1.5(H) 0.1 - 1.2 mg/dL [facility] Comment:Testing performed by : [address] [address] Protein, pl 5.7(L) 6.5 - 8.5 g/dL DAYANA Comment:Testing performed by : [address] [address] Albumin 3.3(L) 3.5 - 5.0 g/dL DAYANA Comment:Testing performed by : [address] [address] Alk phos 272(H) 40 - 130 Units/L DAYANA Comment:Testing performed by : [address], [place]., [address] ALT 19 7 - 45 Units/L DAYANA Comment:Testing performed by : [address] [address] AST 36 10 - 45 Units/L DAYANA Comment:Testing performed by : [address] [address] Blood 11/13/2024 9:02 AM BERRY PICKER 11/13/2024 10:02 AM BERRY PICKER Ivan Vargas MD LAB BLOOD ORDERABLES Final Re sult DAYANA [facility] Department of Laboratories [place], [place] [id number] * POCT glucose (11/13/2024 8:00 AM BERRY PICKER) [facility] Glucose, POC 128 70 - 199 mg/dL Comment:Testing performed by : [address] [address] Glucose comment 1 Use This Result DAYANA Comment:Testing performed by : [address] [address] Glucose comment 2 RN/MD Notified DAYANA Comment:Testing performed by : [address] [address] Blood 11/13/2024 8:00 AM BERRY PICKER 11/13/2024 8:00 AM BERRY PICKER Ivan Vargas MD LAB POCT ORDERABLES - DEVICE Final Result Performing Organization Address [facility] Co de Phone Number DAYANA [address] [place] [address] * Strep pneumoniae antigen, urine Urine (11/13/2024 12:28 AM BERRY PICKER) S. pneumoniae Ag Negative Negative Comment: Interpretive [...] on 2022 Urine 11/13/2024 12:2 8 AM BERRY PICKER 11/13/2024 2:18 AM BERRY PICKER Tino Lynne MD LAB MICROBIOLOGY - G ENERAL ORDERABLES Final Result Performing Organization Address [facility] de Phone Number MARY ALICE[address] [address] * Legionella antigen Urine (11/13/2024 12:28 AM BERRY PICKER) Legionella Ag Negative Negative Comment: Interpretive Data This test detects only Legionella pneumophila serogroup 1 antigen. Testing performed by [facility] Microbiology Laboratory ([phone]). Current interpretive data was last revised on 2020. Testing performed by: [facility], [address] [facility], [place]., [address] Urine 11/13/2024 12:2 8 AM BERRY PICKER 11/13/2024 3:19 AM BERRY PICKER Tino Lynne MD LAB MICROBIOLOGY - G ENERAL ORDERABLES Final Result Performing Organization Address City/[facility] Co de Phone Number MARY ALICE[address] [place] [address] * (ABNORMAL) POCT glucose (11/12/2024 10:04 PM BERRY PICKER) [facility] Signature Glucose, POC 207(H) 70 - 199 mg/dL Comment:Testing performed by : [facility], [address] [place] [address]., [address] Glucose comment 1 Use This Result DAYANA CARPIO Comment:Testing performed by : [facility], [address] [place] [address]., [address] Blood 11/12/2024 10:0 4 PM BERRY PICKER 11/12/2024 10:04 PM BERRY PICKER us Ivan Vargas MD LAB POCT ORDERABLES - DEVICE Final Result DAYANA CARPIO [address] [facility] Department [place] [address] * TRANSTHORACIC ECHO (TTE) COMPLETE W DOPPLER/CF WO CONTRAST (11/12/2024 4:14 PM BERRY PICKER) Anatomical Region Laterality Modality Ultrasound 11/12/2024 3:49 PM BERRY PICKER Narrative 11/12/2024 6:37 PM BERRY PICKER Adult Echocardiogram + ----- + :Name: LOU ISLAS Study Date: 11/12/2024 Status: MHE : : Patient Location: [address]^[id number]^MHeight: 65 in : : Weight: 179 lbBP: [...] Date: 11/12/2024Status: MHE : : Patient Location: [address]^[id number]^MHeight: 65 in : : : 179 lbBP: [...] 1 or 2 Views (11/12/2024 2:18 PM BERRY PICKER) Anatomical Region Laterality Modality Lower Extremities, Knee Left Computed Radiography 11/12/2024 3:15 PM BERRY PICKER Narrative 11/12/2024 3:19 PM BERRY PICKER EXAM DESCRIPTION: XR KNEE LEFT 1 OR [...] Juan Daily M.D. MF: SHARIFA Report ID: [id number] Reading Location: [place] [address] Procedure Note Juan Daily MD - 11/12/2024 [...] Juan Daily M.D. MF: SHARIFA Report ID: [id number] Reading Location: [id number] Ivan Vargas MD IMG XR PROCEDURES Final Resul t * POCT glucose (11/12/2024 12:11 PM BERRY PICKER) Glucose, POC 156 70 - 199 mg/dL Comment:Testing performed by : [address] [address] Glucose comment 1 Use This Result DAYANA Comment:Testing performed by : [address] [address] Blood 11/12/2024 12:1 1 PM BERRY PICKER 11/12/2024 12:11 PM BERRY PICKER Result [facility] Ivan Vargas MD LAB POCT ORDERABLES - DEVICE Final Result Performing Organization Address [facility] de Phone Number [address] [place] [address] * POCT glucose (11/12/2024 10:02 AM BERRY PICKER) [facility] Glucose, POC 125 70 - 199 mg/dL Comment:Testing performed by : [address] [address] Glucose comment 1 Use This Result DAYANA Comment:Testing performed by : [address] [address] Blood 11/12/2024 10:0 2 AM BERRY PICKER 11/12/2024 10:02 AM BERRY PICKER Ivan Vargas MD LAB POCT ORDERABLES - DEVICE Final Result Performing Organization Address City/[facility] Co de Phone Number [address] [place] [address] * (ABNORMAL) eGFR (11/12/2024 8:29 AM BERRY PICKER) [facility] eGFR 49(L) >=60 mL/min/1. 73 m2 Comment: [...] was last reviewed 2021. Testing performed by: [address] [address] Blood 11/12/2024 8:29 AM BERRY PICKER 11/12/2024 9:02 AM BERRY PICKER Tino Lynne MD LAB BLOOD ORDERABLES Final Result [facility] [address] [facility] Department [place] [address] * (ABNORMAL) Differential, auto (11/12/2024 8:29 AM BERRY PICKER) Neutrophil abs 5.0 1.5 - 6.5 K/cumm Comment:Testing performed by : [address] [address] Imm gran abs 0.1 0.0 - 0.1 K/cumm DAYANA Comment:Testing performed by : [address] [address] Lymphocyte abs 0.8 0.8 - 3.3 K/cumm DAYANA Comment:Testing performed by : [address] [address] Monocyte abs 0.9(H) 0.2 - 0.8 K/cumm DAYANA Comment:Testing performed by : [address] [address] Eosinophil abs 0.3 0.0 - 0.5 K/cumm [facility] Comment:Testing performed by : [address] [address] Basophil abs 0.1 0.0 - 0.1 K/cumm [facility] Comment:Testing performed by : [address] [address] Neutrophil pct 70.4 % [facility] Comment: Interpretive Data Percent cell count reference ranges are not reported, since discordance with absolute values may lead to misinterpretation of CBC data. Current Interpretive Data was last revised on 2018. Testing performed by: [address] [address] Imm gran pct 1.0 % [facility] Comment: Interpretive Data Percent cell count reference ranges are not reported, since discordance with absolute values may lead to misinterpretation of CBC data. Current Interpretive Data was last revised on 2018. Testing performed by: [address] [address] Lymphocyte pct 11.1 % [facility] Comment: Interpretive Data Percent cell count reference ranges are not reported, since discordance with absolute values may lead to misinterpretation of CBC data. Current Interpretive Data was last revised on 2018. Testing performed by: [address] [address] Monocyte pct 12.5 % [facility] Comment: Interpretive Data Percent cell count reference ranges are not reported, since discordance with absolute values may lead to misinterpretation of CBC data. Current Interpretive Data was last revised on 2018. Testing performed by: [address] [address] Eosinophil pct 4.1 % [facility] Comment: Interpretive Data Percent cell count reference ranges are not reported, since discordance with absolute values may lead to misinterpretation of CBC data. Current Interpretive Data was last revised on 2018. Testing performed by: [address] [address] Basophil pct 0.9 % [facility] Comment: Interpretive Data Percent cell count reference ranges are not reported, since discordance with absolute values may lead to misinterpretation of CBC data. Current Interpretive Data was last revised on 2018. Testing performed by: [address] [address] Blood 11/12/2024 8:29 AM BERRY PICKER 11/12/2024 9:03 AM BERRY PICKER Tino Lynne MD LAB BLOOD ORDERABLES Final Result [facility] [address] [facility] Department [place] [address] * (ABNORMAL) CBC with auto differential (11/12/2024 8:29 AM BERRY PICKER) Pathologist [facility] WBC 7.0 3.8 - 9.9 K/cumm Comment:Testing performed by : [address] [address] Hgb 8.7(L) 11.9 - 15.5 g/dL DAYANA Comment:Testing performed by : [address] [address] Hct 26.9(L) 35.6 - 45.5 % DAYANA Comment:Testing performed by : [address] [address] Plt 203 150 - 400 K/cumm DAYANA Comment:Testing performed by : [address] [address] MPV 10.4 9.1 - 12.3 fL DAYANA Comment:Testing performed by : [address] [address] RBC 2.68(L) 3.90 - 5.20 M/cumm DAYANA Comment:Testing performed by : [address] [address] MCV 100.4(H) 81.3 - 96.4 fL DAYANA Comment:Testing performed by : [address] [address] MCH 32.5 27.1 - 33.3 pg DAYANA CARPIO Comment:Testing performed by : [address] [place] [address] MCHC 32.3 32.3 - 35.7 g/dL DAYANA CARPIO Comment:Testing performed by : [address] [address] RDW CV 17.0(H) 11.1 - 14.9 % DAYANA CARPIO Comment:Testing performed by : [address] [address] RDW SD 59.2(H) 35.7 - 48.1 fL DAYANA CARPIO Comment:Testing performed by : [address] [address] NRBC abs 0.00 0.00 - 0.01 K/cumm DAYANA CARPIO Comment:Testing performed by : [address] [address] Blood 11/12/2024 8:29 AM BERRY PICKER 11/12/2024 9:03 AM BERRY PICKER Tino Lynne MD LAB BLOOD ORDERABLES Final Result DAYANA [facility] Department of Laboratories [place], [place] [id number] * (ABNORMAL) Comprehensive metabolic panel (11/12/2024 8:29 AM BERRY PICKER) Sodium 137 135 - 145 mmol/L Comment:Testing performed by : [address] [address] Potassium, pl 3.4 3.3 - 4.9 mmol/L DAYANA CARPIO Comment:Testing performed by : [address] [address] Chloride 94(L) 97 - 110 mmol/L DAYANA CARPIO Comment:Testing performed by : [address] [address] CO2 29 22 - 32 mmol/L DAYANA CARPIO Comment:Testing performed by : [address] [address] Anion gap 14 2 - 15 mmol/L DAYANA CARPIO Comment:Testing performed by : [address] [address] BUN 23 6 - 25 mg/dL [facility] Comment:Testing performed by : [address] [address] Creatinine 1.20(H) 0.60 - 1.10 mg/dL [facility] Comment:Testing performed by : [address] [address] Glucose 112 70 - 199 mg/dL [facility] Comment: Interpretive Data Fasting glucose [...] was last revised 2022. Testing performed by: [address] [address] Calcium 9.3 8.5 - 10.3 mg/dL [facility] Comment:Testing performed by : [address] [address] Bilirubin, total 1.8(H) 0.1 - 1.2 mg/dL [facility] Comment:Testing performed by : [address] [address] Protein, pl 5.9(L) 6.5 - 8.5 g/dL [facility] Comment:Testing performed by : [address] [address] Albumin 3.5 3.5 - 5.0 g/dL [facility] Comment:Testing performed by : [address] [address] Alk phos 297(H) 40 - 130 Units/L [facility] Comment:Testing performed by : [address] [address] ALT 21 7 - 45 Units/L [facility] Comment:Testing performed by : [address] [address] AST 46(H) 10 - 45 Units/L DAYANA Comment:Testing performed by : [facility], [address] [place] [address]., [address] Blood 11/12/2024 8:29 AM BERRY PICKER 11/12/2024 9:02 AM BERRY PICKER Tino Lynne MD LAB BLOOD ORDERABLES Final Result Performing Organization Address [facility] Co de Phone Number DAYANA [address] [address] * POCT glucose (11/12/2024 3:01 AM BERRY PICKER) Pathologist [facility] Glucose, POC 118 70 - 199 mg/dL Comment:Testing performed by : [address] [address] Glucose comment 1 Use This Result DAYANA Comment:Testing performed by : [facility], [address] [place] [address]., [address] Blood 11/12/2024 3:01 AM BERRY PICKER 11/12/2024 3:01 AM BERRY PICKER Tino Lynne MD LAB POCT ORDERABLES - DEVICE Final Result Performing Organization Address [facility] de Phone Number [address] [address] * Blood culture Blood Peripheral (11/11/2024 9:45 PM BERRY PICKER) Report Final Report: No growth Comment:Testing performed by : [facility], [address] [facility], [place]., [address] Blood (Peripheral) 11/11/2024 9:45 PM BERRY PICKER 11/12/2024 1:21 AM BERRY PICKER Narrative DAYANA - 11/16/2024 7:00 AM BERRY PICKER From a different site than #1. Draw [...] performance characteristics have been verified by the [facility] Microbiology Laboratory. For questions about this culture, contact the Microbiology Laboratory at [phone]. Interpretive data was last revised on 24. us Bravo Chino MD LAB MICROBIOLOGY - GEN ERAL ORDERABLES Final Result DAYANA CARPIO [address] [facility] Department [place] [address] * Blood culture Blood Peripheral (11/11/2024 9:45 PM BERRY PICKER) Report Final Report: No growth Comment:Testing performed by : [facility], [address] [facility] [address] Blood (Peripheral) 11/11/2024 9:45 PM BERRY PICKER 11/12/2024 1:22 AM BERRY PICKER Kaye CARPIO - 11/16/2024 7:00 AM BERRY PICKER Draw Blood cultures before administration of Antibiotics [...] performance characteristics have been verified by the [facility] Microbiology Laboratory. For questions about this culture, contact the Microbiology Laboratory at [phone]. Interpretive data was last revised on 24. us Bravo Chino MD LAB MICROBIOLOGY - GEN ERAL ORDERABLES Final Result DAYANA [facility] Department [place] [address] * CT Chest Abdomen Pelvis WO Contrast (11/11/2024 8:07 PM BERRY PICKER) Anatomical Region Laterality Modality Body N/A Computed Tomogra phy 11/11/2024 8:12 PM BERRY PICKER Narrative 11/11/2024 8:29 PM BERRY PICKER EXAM DESCRIPTION: CT CHEST ABDOMEN PELVIS WO CONTRAST REASON FOR STUDY: fluid overload, CHF, possible cirrhosis Pt c/o increasing swelling to bilateral lower extremities that is spreading to lower abd x approx 3 weeks. [facility] d/t recent hospital admission for [...] in the right lower lobe dependently. PLEURA: Zrogp-wm-yxgrbgra right pleural effusion is present. MEDIASTINUM/JETT: No [...] streak artifact. OTHER: No significant abnormality. IMPRESSION: Cdydy-po-ikecefyo right pleural effusion with right lower lobe consolidation. Small patchy areas of density in the right upper and lower lobes may be infectious or inflammatory. Short-term follow-up is recommended. Small pericardial effusion. Hepatic cirrhosis. Cholelithiasis. Diffuse atherosclerotic disease. THIS IS AN ELECTRONICALLY VERIFIED FINAL REPORT 11/11/2024 8:29 PM - Electronically signed by Pedro De La Vega M.D. KH: [email or web address] Report ID: [id number] Reading Location: [place] [address] Procedure Note Pedro De L aVega MD - 11/11/2024 EXAM DESCRIPTION: CT CHEST ABDOMEN PELVIS WO CONTRAST REASON FOR STUDY: fluid overload, CHF, possible cirrhosis Pt c/o increasing swelling to bilateral lower extremities that isspreading to lower abd x approx 3 weeks. Pt [facility] d/[facility] hospital admission for similar complaints/ sepsis [...] in the right lower lobe dependently. PLEURA: Dzvtq-bj-jgpqyhfr right pleural effusion is present. MEDIASTINUM/JETT: No [...] streak artifact. OTHER: No significant abnormality. IMPRESSION: Unajs-ad-eeyerxkw right pleural effusion with right lower lobeconsolidation. Small patchy areas of density in the right upper and lower lobes may be infectious or inflammatory. Short-term follow-up is recommended. Small pericardial effusion. Hepatic cirrhosis. Cholelithiasis. Diffuse atherosclerotic disease. THIS IS AN ELECTRONICALLY VERIFIED FINAL REPORT 11/11/2024 8:29 PM - Electronically signed by Pedro De La Vega M.D. KH: [email or web address] Report ID: [id number] Reading Location: [id number] us Bravo Chino MD IMG CT PROCEDURES Manda l Result * XR Chest 1 Vw Portable (if patient condition/safety warrant portable) (11/11/2024 5:30 PM BERRY PICKER) Anatomical Region Laterality Modality Body, Chest N/A Computed Radiogr aphy 11/11/2024 6:12 PM BERRY PICKER Narrative 11/11/2024 6:12 PM BERRY PICKER EXAM DESCRIPTION: XR CHEST 1 VIEW REASON FOR STUDY: Shortness of breath Pt c/o increasing swelling to bilateral lower extremities that is spreading to lower abd x approx 3 weeks. Pt currently [facility] d/t recent hospital admission for [...] Eric Larson M.D. AG: CAM Report ID: [id number] Reading Location: [id number] Procedure Note Eric Larson MD - 11/11/2024 EXAM DESCRIPTION: XR CHEST 1 VIEW REASON FOR STUDY: Shortness of breath Pt c/o increasing swelling to bilateral lower extremities that isspreading to lower abd x approx 3 weeks. Pt [facility] for similar [facility]/ sepsis in [...] Eric Larson M.D. AG: CAM Report ID: [id number] Reading Location: [id number] us Bravo Chino MD IMG XR PROCEDURES Manda l Result * Sepsis Lactate w/ Reflex (11/11/2024 5:10 PM BERRY PICKER) Sepsis Lactate 1.6 0.7 - 2.0 mmol/L Comment:Testing performed by : [facility], [address] [place] [address]., [address] Blood 11/11/2024 5:10 PM BERRY PICKER 11/11/2024 5:16 PM BERRY PICKER Bravo Chino MD LAB BLOOD ORDERABLES F inal Result DAYANA [address] [facility] Department [place] [address] * (ABNORMAL) eGFR (11/11/2024 5:10 PM BERRY PICKER) Pathologist [facility] eGFR 43(L) >=60 mL/min/1. 73 m2 [...] was last reviewed 2021. Testing performed by: [address] [address] Blood 11/11/2024 5:10 PM BERRY PICKER 11/11/2024 5:16 PM BERRY PICKER us Gloria Steen NP LAB BLOOD ORDERABLES Final Resul t DAYANA [address] [facility] Department [place] [address] * (ABNORMAL) Differential, auto (11/11/2024 5:10 PM BERRY PICKER) [facility] Neutrophil abs 4.9 1.5 - 6.5 K/cumm Comment:Testing performed by : [address] [address] Imm gran abs 0.1 0.0 - 0.1 K/cumm DAYANA Comment:Testing performed by : [address] [address] Lymphocyte abs 0.7(L) 0.8 - 3.3 K/cumm [facility] Comment:Testing performed by : [address] [address] Monocyte abs 0.9(H) 0.2 - 0.8 K/cumm [facility] Comment:Testing performed by : [address] [address] Eosinophil abs 0.2 0.0 - 0.5 K/cumm [facility] Comment:Testing performed by : [address], [place]., [address] Basophil abs 0.1 0.0 - 0.1 K/cumm [facility] Comment:Testing performed by : [address] [address] Neutrophil pct 71.4 % [facility] Comment: Interpretive Data Percent cell count reference ranges are not reported, since discordance with absolute values may lead to misinterpretation of CBC data. Current Interpretive Data was last revised on 2018. Testing performed by: [address] [address] Imm gran pct 1.0 % [facility] Comment: Interpretive Data Percent cell count reference ranges are not reported, since discordance with absolute values may lead to misinterpretation of CBC data. Current Interpretive Data was last revised on 2018. Testing performed by: [address] [address] Lymphocyte pct 10.8 % [facility] Comment: Interpretive Data Percent cell count reference ranges are not reported, since discordance with absolute values may lead to misinterpretation of CBC data. Current Interpretive Data was last revised on 2018. Testing performed by: [address] [address] Monocyte pct 13.0 % [facility] Comment: Interpretive Data Percent cell count reference ranges are not reported, since discordance with absolute values may lead to misinterpretation of CBC data. Current Interpretive Data was last revised on 2018. Testing performed by: [address] [address] Eosinophil pct 3.1 % [facility] Comment: Interpretive Data Percent cell count reference ranges are not reported, since discordance with absolute values may lead to misinterpretation of CBC data. Current Interpretive Data was last revised on 2018. Testing performed by: [address] [address] Basophil pct 0.7 % DAYANA CARPIO Comment: Interpretive Data Percent cell count reference ranges are not reported, since discordance with absolute values may lead to misinterpretation of CBC data. Current Interpretive Data was last revised on 2018. Testing performed by: [facility], [address] [place] [address]., [address] Blood 11/11/2024 5:10 PM BERRY PICKER 11/11/2024 5:16 PM BERRY PICKER us Gloria Steen NP LAB BLOOD ORDERABLES Final Resul t DAYANA CARPIO [address] [facility] [place] [address] * (ABNORMAL) Pro B-type natriuretic peptide (11/11/2024 5:10 PM BERRY PICKER) NT-proBNP 5,728(H) <=300 pg/mL Comment: Interpretive Comments: [...] Last Revised Date: 2018. Testing performed by: [address] [address] Blood 11/11/2024 5:10 PM BERRY PICKER 11/11/2024 5:16 PM BERRY PICKER us Bravo Chino MD LAB BLOOD ORDERABLES F inal Result DAYANA [facility] Department of Laboratories [place], [place] [id number] * (ABNORMAL) CBC with auto differential (11/11/2024 5:10 PM BERRY PICKER) WBC 6.9 3.8 - 9.9 K/cumm Comment:Testing performed by : [address] [address] Hgb 9.3(L) 11.9 - 15.5 g/dL DAYANA CARPIO Comment:Testing performed by : [address] [address] Hct 28.3(L) 35.6 - 45.5 % DAYANA CARPIO Comment:Testing performed by : [address] [address] Plt 209 150 - 400 K/cumm ADYANA CARPIO Comment:Testing performed by : [address] [address] MPV 10.3 9.1 - 12.3 fL DAYANA CARPIO Comment:Testing performed by : [address] [address] RBC 2.84(L) 3.90 - 5.20 M/cumm DAYANA CARPIO Comment:Testing performed by : [address] [address] MCV 99.6(H) 81.3 - 96.4 fL DAYANA Comment:Testing performed by : [address] [address] MCH 32.7 27.1 - 33.3 pg DAYANA CARPIO Comment:Testing performed by : [address] [address] MCHC 32.9 32.3 - 35.7 g/dL DAYANA Comment:Testing performed by : [address] [address] RDW CV 17.0(H) 11.1 - 14.9 % DAYANA Comment:Testing performed by : [address] [address] RDW SD 59.6(H) 35.7 - 48.1 fL DAYANA CARPIO Comment:Testing performed by : [address] [address] NRBC abs 0.00 0.00 - 0.01 K/cumm DAYANA Comment:Testing performed by : [address] [address] Blood 11/11/2024 5:10 PM BERRY PICKER 11/11/2024 5:16 PM BERRY PICKER us Bravo Chino MD LAB BLOOD ORDERABLES F inal Result [facility] [address] [facility] Department of Laboratories [place], [place] [id number] * (ABNORMAL) Comprehensive metabolic panel (11/11/2024 5:10 PM BERRY PICKER) Sodium 136 135 - 145 mmol/L Comment:Testing performed by : [address] [address] Potassium, pl 3.6 3.3 - 4.9 mmol/L DAY[facility] CARPIO Comment: Hemolyzed; Potassium value may be falsely elevated by as much as 1.0 mmol/L. Suggest redraw and reanalysis. Testing performed by: [address] [address] Chloride 93(L) 97 - 110 mmol/L [facility] Comment:Testing performed by : [address] [address] CO2 32 22 - 32 mmol/L [facility] Comment:Testing performed by : [address] [address] Anion gap 11 2 - 15 mmol/L [facility] Comment:Testing performed by : [address] [address] BUN 23 6 - 25 mg/dL [facility] Comment:Testing performed by : [address] [address] Creatinine 1.32(H) 0.60 - 1.10 mg/dL [facility] Comment:Testing performed by : [address] [address] Glucose 170 70 - 199 mg/dL [facility] Comment: Interpretive Data Fasting glucose [...] was last revised 2022. Testing performed by: [address] [address] Calcium 9.6 8.5 - 10.3 mg/dL [facility] Comment:Testing performed by : [address] [address] Bilirubin, total 1.9(H) 0.1 - 1.2 mg/dL [facility] Comment:Testing performed by : [address] [address] Protein, pl 6.3(L) 6.5 - 8.5 g/dL [facility] Comment:Testing performed by : [address] [address] Albumin 3.6 3.5 - 5.0 g/dL [facility] Comment:Testing performed by : [facility], [address] [place] [address]., [address] Alk phos 337(H) 40 - 130 Units/L [facility] Comment:Testing performed by : [address] [address] ALT 30 7 - 45 Units/L [facility] Comment:Testing performed by : [address] [address] AST 73(H) 10 - 45 Units/L [facility] Comment: Hemolyzed; result may be falsely elevated Testing performed by: [address] [address] Blood 11/11/2024 5:10 PM BERRY PICKER 11/11/2024 5:16 PM BERRY PICKER Bravo Chino MD LAB BLOOD ORDERABLES F inal Result [facility] [address] [facility] [place] [address] * Cardiology Document Scan (11/01/2024 10:08 AM BERRY PICKER) Anatomical Region Laterality Modality Other Bridget Nicholson NP CV CARDIAC SERVICES PROCEDUR ES Final Result * Cardiology Document Scan (10/31/2024 9:21 AM BERRY PICKER) Anatomical Region Laterality Modality Other us Jc Schaffer MD CV CARDIAC SERVICES PROCEDURES F inal Result * POCT lipid panel (11/15/2023 2:47 PM BERRY PICKER) Cholesterol, POC 146 mg/dL Comment:GLU = 90 HDL, POC 58 mg/dL Triglycerides, POC 87 mg/dL LDL Cholesterol POC 70 mg/dL Chol/HDL Ratio, POC 1.2 Non-HDL Cholesterol, POC 88 mg/dL Cholesterol Total, POC 146 mg/dL Capillary blood 11/15/2023 2 :47 PM BERRY PICKER Bridget Nicholson NP POINT OF CARE TEST ORDERABLE S Final Result from Last 3 Months or Most Recently Relevant to Health Maintenance Insurance MEDICARE AETNA SENIOR SUPPLEMENT Advance Directives For more information, please contact: [phone] Documents on File Type Date Recorded Patient Bundle Person Expl anation ADVANCE DIRECTIVE 11/13/2024 3:42 PM Power of Clerical Order Filler-Medical * Full Code (Latest Code Status on File) Date Activated Date Inactivated Comments 11/12/2024 2:31 AM 11/20/2024 10:35 PM Care Teams Dining Room Host/Hostess Relationship Specialty Start Date End Date Ghanshyam Ruiz NP [address] [place] [id number] PCP - General Nurse Practitioner 09/03/24 Augustus Birch MD [address] [facility] [address] [address] Internal Medicine 04/17/19
--- OUTSIDE RECORDS SUMMARY | 2025-01-25 16:15 | XMS_ITS | Patient Health Record ---
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 Problem Chronic migraine without aura, non-intractable (276376153851704) Chronic migraine without aura, not intractable, without status migrainosus (G43.709) Active confirmed Problem Alcoholic polyneuropathy (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 Problem Orthostatic hypotension (32153670) Orthostatic hypotension (I95.1) Active confirmed Problem Abnormal gait (69190502) Other abnormalities of gait and mobility (R26.89) Active confirmed Problem Malaise (563777368) Other malaise (R53.81) Active confirmed Problem Neurogenic claudication (552432043) Spinal stenosis, lumbar region with neurogenic claudication (M48.062) Active confirmed Encounters Encounter Location Date Provider Diagnosis [facility] [address] [place] [address] 03/30/2024 Provider [facility] Plan Of Treatment No Information Insurance Providers Payer Name Payer Address Payer Phone Subscriber Number Group Number Insured Name Patient Relationship to Insured Coverage Start Date Coverage End Date [employer] (Medicare) Attention Claims [address] [place] [address] [id number] Lou Islas Self - patient is the insured [employer] [address] [place] [id number] Lou Islas Self - patient is the insured Medical (General) History Medical History History ICD Code Obesity DM2 HLD HTN Osteoarthritis Osteoporosis Lumbar DDD GERD Chronic hyponatremia Mild CKD Liver cirrhosis Surgical History Surgery Date(Month/Year) R hip replacement L hip replacement Lumbar discectomy B cataract
--- OUTSIDE RECORDS SUMMARY | 2025-01-25 16:16 | XMS_ITS | Clinical Summary ---
Author Organization [facility] Address [address] [facility] [place] [address] Care Team Providers Care Credit Cashier Name Role Phone Dariel Horvath DO Primary Care Provider [phone] Source Comments [facility],non-owned Affiliates and Associated Physician Practices is amultiple site organization consisting of ambulatory clinics and hospital sitesin [place], [place]. This disclosure is being madepursuant to the Care Everywhere program and may not contain all information available regarding this patient. Last updated 18.[facility] Allergies Active Allergy Reactions Criticality Noted Date Comments Codeine Headache 05/30/2021 Medications * Be aware that medications may not be up to date on this document. Alwaysverify current medications with the patient. aspirin (ASPIRIN) 81 MG chew tablet Take 81 mg by mouth once daily Active atorvastatin (LIPITOR) 10 MG tablet Take 10 mg by mouth at bedtime Active NEEDLE, DISP, 24 G 24G X 1 MISC Use 1 Each 2 times daily 48 Each 06/04/20 21 Active insulin glargine (LANTUS) vial Inject 11 (eleven) Units subcutaneously at bedtime 06/04/20 21 Active ondansetron, disintegrating, (ZOFRAN ODT) 4 MG tablet Take 1 (one) tablet by mouth 3 times daily before meals Allow tablet to dissolve on the tongue 30 tablet 06/04/20 21 Active metoprolol succinate XL 24hr (TOPROL XL) 25 MG tablet Take 0.5 (one-half) tablet by mouth once daily 06/04/20 21 Active folic acid (FOLVITE) 1 MG tablet Take 1 (one) tablet by mouth once daily 30 tablet 06/04/20 21 Active sodium chloride 1 GM tablet Take 1 (one) tablet by mouth 3 times daily with meals 90 tablet 3 06/04/20 21 Active docusate sodium (COLACE) 100 MG capsuleIndication s:Closed fracture of distal end of left femur, unspecified fracture morphology, initial encounter ([facility]) Take 1 (one) capsule by mouth 2 times daily 06/04/20 21 Active ferrous sulfate EC (FERROUS SULFATE) 324 (65 Fe) MG tablet Take 1 (one) tablet by mouth once daily 30 tablet 3 06/04/20 21 Active insulin lispro (HUMALOG) 100 UNIT/ML vial Inject 2 (two) Units subcutaneously 3 times daily before meals 3 mL 1 06/04/20 21 Active sodium zirconium cyclosilicate (LOKELMA) 5 g packet Take 1 (one) packet by mouth once daily 30 Each 06/04/20 21 Active pen needles 5/16 31G X 8 MM 31G X 8 MM USE WITH INSULIN FOUR TIMES DAILY 100 Each 06/04/20 21 Active insulin pen needle (NOVOFINE 31) 31G X 5 MM needle 1 (one) Each 3 times daily 100 Each 06/04/20 21 Active ibuprofen (MOTRIN) 200 MG tablet Take [...] drinks of vodka with diet coke daily Comments No Sex and Gender Information Value Date Recorded Sex Assigned at Not on file Legal Sex Female 9:29 PM CDT Gender Identity Not on file [...] 85.3 kg (188 lb) 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 Height 165.1 cm (5' 5 ) 06/24/2021 [...] 06/03/2021, 06/02/2021, Additional history exists COVID-19 VACCINE ( - season) 2024 DEPRESSION SCREENING 10/16/2024 DIABETES - URINE PROTEIN SCREENING 10/16/2024 INFLUENZA VACCINE (Season Ended) 2025 07/29/2020 HEPATITIS B VACCINE Aged Out No longe [...] this topic Medical Devices Implanted Type Area Missileman Device Identifier Shelf Expiration Date Model / Serial / Lot 8.0mm Cannulated Locking Screw Implanted:Qty: 1 on 05/31/2021 by Mary Ann Elkins MD at [facility] Left: Leg [id number] / / Plate 6 Hl Lck Precontr Fem Lt Dist Implanted:Qty: 1 on 05/31/2021 by Mary Ann Elkins MD at [facility] Left: Leg [employer] 06/24/2028 [id number] / / 5.5mm Dt Poly Locking Screws Implanted:Qty: 2 on 05/31/2021 by Mary Ann Elkins MD at [facility] Left: Leg [employer] [id number] / / 5.5mm Ft Poly Locking Screws Implanted:Qty: 2 on 05/31/2021 by Mary Ann Elkins MD at [facility] Left: Leg [id number] / / 4.5mm Solid Cortical Bone Screw Implanted:Qty: 1 on 05/31/2021 by Mary Ann Elkins MD at [facility] Left: Leg [id number] / / 4.5 Solid Cortical Bone Screw Implanted:Qty: 1 on 05/31/2021 by Mary Ann Elkins MD at [facility] Left: Leg [id number] / / 4.5 Solid Cortical Bone Screw Implanted:Qty: 1 on 05/31/2021 by Mary Ann Elkins MD at [facility] Left: Leg [id number] / / 4.5 Solid Cortical Bone Screw Implanted:Qty: 1 on 05/31/2021 by Mary Ann Elkins MD at [facility] Left: Leg [id number] / / Explanted Type Area Missileman Device Identifier Shelf Expiration Date Model / Serial / Lot Wire K 1.6mm 150mm 1 End Troc Pnt Ss Explanted:Qty: 1 on 05/31/2021 by Mary Ann Elkins MD at [facility] Left: Leg [employer] [id number] / / 5.5mm Non-Locking Screws Explanted:Qty: 1 on 05/31/2021 by Mary Ann Elkins MD at [facility] Left: Leg [id number] / / 4.5 Solid Cortical Bone Screw Explanted:Qty: 1 on 05/31/2021 by Mary Ann Elkins MD at [facility] Left: Leg [id number] / / Procedures Procedure Name Priority Date/Time Associated Diagnosis Comments COMPREHENSIVE METABOLIC PANEL AM Draw 06/04/2021 1:24 AM CDT HEMOGLOBIN A1C DIOMEDES 05/31/2021 3:39 AM CDT from Last 3 Months or Most Recently Relevant to Health Maintenance Results * (ABNORMAL) COMPREHENSIVE METABOLIC PANEL (06/04/2021 1:24 AM CDT) BUN 14 7 - 26 mg/dL 06/04/2021 2:51 AM [facility] Creatinine 1.13(H) 0.56 - 0.96 mg/dL 06/04/2021 2:51 AM [facility] Sodium 130(L) 136 - 145 mmol/L 06/04/2021 2:51 AM [facility] Potassium 4.1 3.5 - 4.5 mmol/L 06/04/2021 2:51 AM [facility] Chloride 98 98 - 107 mmol/L 06/04/2021 2:51 AM [facility] CO2 24 22 - 29 mmol/L 06/04/2021 2:51 AM [facility] Glucose 138(H) 70 - 115 mg/dL 06/04/2021 2:51 AM [facility] Calcium 8.5 8.4 - 10.2 mg/dL 06/04/2021 2:51 AM [facility] Protein Total 5.4(L) 6.0 - 8.3 g/dL 06/04/2021 2:51 AM [facility] Albumin 2.8(L) 3.4 - 5.0 g/dL 06/04/2021 2:51 AM [facility] Bilirubin Total 1.0 0.2 - 1.2 mg/dL 06/04/2021 2:51 AM [facility] Alkaline Phosphatase 284(H) 40 - 150 U/L 06/04/2021 2:51 AM [facility] ALT 13 5 - 55 U/L 06/04/2021 2:51 AM [facility] AST 33 5 - 34 U/L 06/04/2021 2:51 AM [facility] Anion Gap 12 8 - 18 06/04/2021 2:51 AM [facility] BUN/Creatinine Ratio 12 7 - 23 06/04/2021 2:51 AM [facility] Osmolality Calculated 273 270 - 300 mOsm/kg 06/04/2021 2:51 AM [facility] Albumin/Globulin Ratio 1.1 1.1 - 2.3 06/04/2021 2:51 AM [facility] eGFR by CKD-EPI 50(L) >=90 mL/min/1.7 3 m2 06/04/2021 2:51 AM [facility] Blood BLOOD SPECIMEN / Unknown Lab Venipuncture / Unknown 06/04/2021 1:24 AM CDT 06/04/2021 2:15 AM T us Janene Sampson PA-C LAB - CHEMISTRY ORDERABLES F inal Result [facility] [address] [place] [address], [facility] [phone] * HEMOGLOBIN A1C (05/31/2021 3:39 AM CDT) Hemoglobin A1c 5.4 4.4 - 6.3 % 05/31/2021 10:18 AM CDT [facility] Estimated Average Glucose 108 mg/dL 05/31/2021 10:18 AM T [facility] Comment: HbA1c Interpretation: Treatment target values recommended by ADA and other clinical organizations should be used to evaluate metabolic control in patients. Treatment Target Values: Normal : < 5.7% Pre-diabetes: 5.7-6.4% Diabetes: Equal to or greater than 6.5% Reference: [place] [employer] Standards of Care in Diabetes -2014 In patients 70 years and older consider HbA1c target range of 7.0-7.5% Reference: Diabetes Mellitus in Older People: Position Statement on behalf of the International Association of Gerontology and Geriatrics (IAGG), the Diabetes Working Democrat for Older People (EDWPOP), and the International Task Force of Experts in Diabetes. Phu Pisano et al. J [place] [employer] Association. 2012 Test results diagnostic of diabetes should be repeated for confirmation. The Sebia Capillary 2 assay for the measurement of HbA1c is a National Glycohemoglobin Standardization Program (NGSP)certified method. Blood BLOOD SPECIMEN / Unknown Venipuncture / Unknown 05/31/2021 3:39 AM CDT 05/31/2021 3:46 AM CDT Raheel Erazo MD LAB - CHEMISTRY ORDERABLES Manda curiel Result [facility] [address] [place] [address], [facility] [phone] from Last 3 Months or Most Recently Relevant to Health Maintenance Insurance MEDICARE MEDICARE SUPPLEMENT PAYOR GENERIC [employer] MEDICARE Advance Directives * Full Code (Latest Code Status on File) Date Activated Date Inactivated Comments 05/31/2021 12:14 AM 06/04/2021 6:44 PM Care Teams Credit Cashier Relationship Specialty Start Date End Date Dariel Horvath DO [address] [facility] [address] [place], [place] [id number] PCP - General Internal Medicine 05/30/21
--- OUTSIDE RECORDS SUMMARY | 2025-01-25 16:16 | XMS_ITS | Referral Summary ---
Author Organization [facility] Office Center Address [address] [place] [address] Care Team Providers Care Brand Activation Manager Name Role Phone Augustus Birch MD Unavailable Ghanshyam Ruiz NP Primary Care Provider [phone] Encounters Date Type Department Care Team Description 01/14/2025 Telephone [facility] Cardiology [address] [place] [address] Carlitos Edmonds MD 12/26/2024 9:15 AM CDT - 12/26/2024 11:59 PM CDT Hospital Encounter [facility] MOB 1 DIAG IMG [address] [place] [address] Closed fracture of medial portion of left tibial plateau, initial encounter Discharge Disposition: Discharge to home or self care 12/26/2024 9:30 AM CDT Office Visit [facility] Orthopedics and Sports Medicine [address] [facility] [address] [place] [phone] Samara Soto PA Closed fracture of medial portion of left tibial plateau with routine healing, subsequent encounter (Primary Dx) 12/25/2024 9:30 AM CDT Office Visit [facility] Cardiology [address] [place] [phone] Bridget Nicholson NP Congestive heart failure, unspecified HF chronicity, unspecified heart failure type (HCC) (Primary Dx); Lymphedema of both lower extremities; Closed fracture of medial portion of left tibial plateau, initial encounter; Chronic venous insufficiency of lower extremity 11/27/2024 11:00 AM PRINTING WORKER SUPERVISOR Office Visit [facility] Vascular at [address] [place] [address] Lexie Rucker MD Chronic venous insufficiency of lower extremity (Primary Dx) 11/26/2024 2:00 PM PRINTING WORKER SUPERVISOR Ancillary Procedure [facility] Vascular and Vein Surgery at [address] [place] [address] Varicose veins of lower extremity with pain, bilateral; Other specified symptoms and signs involving the circulatory and respiratory systems 11/26/2024 1:00 PM PRINTING WORKER SUPERVISOR Ancillary Procedure [facility] Vascular and Vein Surgery at [address] [place] [address] Varicose veins of lower extremity with pain, bilateral 11/25/2024 Orders Only [facility] Cardiology [address] [place] [address] Bridget Nicholson NP 11/21/2024 Telephone [facility] Nephrology at [address] [place] [address] Bravo Mckenzie MD 11/11/2024 5:12 PM PRINTING WORKER SUPERVISOR - 11/20/2024 6:14 PM PRINTING WORKER SUPERVISOR Hospital Encounter [facility] 5 Med Surg [address] [place] [address] Bravo Chino MD [place], MD Devorah Mejias [...] initial encounter [S82.132A] Discharge Disposition: Discharge to [facility] 11/07/2024 Orders Only [facility] Cardiology [address] [place] [address] Jc Schaffer MD 10/30/2024 Telephone [facility] Cardiology [address] [place] [address] Carlitos Edmonds MD from Last [...] mouth daily Active blood-glucose meter,continuous ([employer]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) [facility] Activ e thiamine (VITAMIN B1) 100 mg [...] 1 tablet (1 g total) by mouth welcome center agent before breakfast 06/04/20 21 Active sodium zirconium [...] 11/29/2024 Assessment & Plan (11/29/2024 11:50 AM PRINTING WORKER SUPERVISOR): Bilateral lower extremity chronic venous insufficiency with [...] Tobacco: Never Tobacco Cessation:Counseling Given: Not Answered [facility] Utilities Answer Date Recorded In the past 12 months has AVOB, gas, oil, or water [employer] threatened to shut off services in your [...] How often do you attend chur or christian services? More than 4 times per year 11/12/2024 Do you belong to any clubs o r organizations such as jain groups, unions, fraternal or athletic groups, or [...] time in the past 12 m [facility], were you homeless or living in a fpc (including now)? No 11/12/2024 Personal Safety Answer [...] 36.4 C (97.5 F) 11/20/2024 4:02 AM PRINTING WORKER SUPERVISOR Respiratory Rate 18 11/20/2024 8:44 AM PRINTING WORKER SUPERVISOR Oxygen Saturation 99% 12/25/2024 9:24 AM CDT [...] Read Routine (OP Routine) 11/26/2024 2:32 PM PRINTING WORKER SUPERVISOR Varicose veins of lower extremity with pain, bilateral Other specified symptoms and signs involving the circulatory and respiratory systems US VENOUS REFLUX BILATERAL Routine 11/26/2024 2:32 PM PRINTING WORKER SUPERVISOR Varicose veins of lower extremity with pain, bilateral POCT GLUCOSE DEVICE Routine 11/20/2024 5 :57 PM PRINTING WORKER SUPERVISOR POCT GLUCOSE DEVICE Routine 11/20/2024 1 2:28 PM PRINTING WORKER SUPERVISOR POCT GLUCOSE DEVICE Routine 11/20/2024 8 :57 AM PRINTING WORKER SUPERVISOR EGFR Routine 11/20/2024 5:33 AM PRINTING WORKER SUPERVISOR DIFFERENTIAL AUTO Routine 11/20/2024 5:3 3 AM PRINTING WORKER SUPERVISOR COMPREHENSIVE METABOLIC PANEL Routine 11/20/2024 5:33 AM PRINTING WORKER SUPERVISOR CBC WITH AUTO DIFFERENTIAL Routine 11/20/2024 5:33 AM PRINTING WORKER SUPERVISOR POCT GLUCOSE DEVICE Routine 11/19/2024 8 :57 PM PRINTING WORKER SUPERVISOR POCT GLUCOSE DEVICE Routine 11/19/2024 5 :10 PM PRINTING WORKER SUPERVISOR POCT GLUCOSE DEVICE Routine 11/19/2024 1 2:24 PM PRINTING WORKER SUPERVISOR POCT GLUCOSE DEVICE Routine 11/19/2024 1 1:36 AM PRINTING WORKER SUPERVISOR POCT GLUCOSE DEVICE Routine 11/19/2024 8 :22 AM PRINTING WORKER SUPERVISOR EGFR Routine 11/19/2024 6:23 AM PRINTING WORKER SUPERVISOR DIFFERENTIAL AUTO Routine 11/19/2024 6:2 3 AM PRINTING WORKER SUPERVISOR AMMONIA Routine 11/19/2024 6:23 AM PRINTING WORKER SUPERVISOR COMPREHENSIVE METABOLIC PANEL Routine 11/19/2024 6:23 AM PRINTING WORKER SUPERVISOR CBC WITH AUTO DIFFERENTIAL Routine 11/19/2024 6:23 AM PRINTING WORKER SUPERVISOR POCT GLUCOSE DEVICE Routine 11/18/2024 8 :[address] ABDOMEN PELVIS WO CONTRAST IP Routine 11/18/2024 8:34 PM PRINTING WORKER SUPERVISOR POCT GLUCOSE DEVICE Routine 11/18/2024 5 :49 PM PRINTING WORKER SUPERVISOR POCT GLUCOSE DEVICE Routine 11/18/2024 1 2:43 PM PRINTING WORKER SUPERVISOR POCT GLUCOSE DEVICE Routine 11/18/2024 7 :55 AM PRINTING WORKER SUPERVISOR DIFFERENTIAL AUTO Routine 11/18/2024 6:3 5 AM PRINTING WORKER SUPERVISOR CBC WITH AUTO DIFFERENTIAL Routine 11/18/2024 6:35 AM PRINTING WORKER SUPERVISOR EGFR Routine 11/18/2024 5:52 AM PRINTING WORKER SUPERVISOR FOLATE Routine 11/18/2024 5:52 AM PRINTING WORKER SUPERVISOR VITAMIN B12 Routine 11/18/2024 5:52 AM PRINTING WORKER SUPERVISOR COMPREHENSIVE METABOLIC PANEL Routine 11/18/2024 5:52 AM PRINTING WORKER SUPERVISOR POCT GLUCOSE DEVICE Routine 11/17/2024 8 :52 PM PRINTING WORKER SUPERVISOR POCT GLUCOSE DEVICE Routine 11/17/2024 6 :05 PM PRINTING WORKER SUPERVISOR POCT GLUCOSE DEVICE Routine 11/17/2024 1 :08 PM PRINTING WORKER SUPERVISOR POCT GLUCOSE DEVICE Routine 11/17/2024 9 :20 AM PRINTING WORKER SUPERVISOR EGFR Routine 11/17/2024 7:01 AM PRINTING WORKER SUPERVISOR DIFFERENTIAL AUTO Routine 11/17/2024 7:0 1 AM PRINTING WORKER SUPERVISOR COMPREHENSIVE METABOLIC PANEL Routine 11/17/2024 7:01 AM PRINTING WORKER SUPERVISOR CBC WITH AUTO DIFFERENTIAL Routine 11/17/2024 7:01 AM PRINTING WORKER SUPERVISOR POCT GLUCOSE DEVICE Routine 11/16/2024 7 :44 PM PRINTING WORKER SUPERVISOR POCT GLUCOSE DEVICE Routine 11/16/2024 6 :33 PM PRINTING WORKER SUPERVISOR POCT GLUCOSE DEVICE Routine 11/16/2024 1 1:54 AM PRINTING WORKER SUPERVISOR HEMOGLOBIN A1C Routine 11/16/2024 9:56 AM PRINTING WORKER SUPERVISOR EGFR Routine 11/16/2024 9:56 AM PRINTING WORKER SUPERVISOR DIFFERENTIAL AUTO Routine 11/16/2024 9:5 6 AM PRINTING WORKER SUPERVISOR COMPREHENSIVE METABOLIC PANEL Routine 11/16/2024 9:56 AM PRINTING WORKER SUPERVISOR CBC WITH AUTO DIFFERENTIAL Routine 11/16/2024 9:56 AM PRINTING WORKER SUPERVISOR POCT GLUCOSE DEVICE Routine 11/16/2024 8 :53 AM PRINTING WORKER SUPERVISOR POCT GLUCOSE DEVICE Routine 11/16/2024 1 2:30 AM PRINTING WORKER SUPERVISOR POCT GLUCOSE DEVICE Routine 11/15/2024 8 :35 PM PRINTING WORKER SUPERVISOR POCT GLUCOSE DEVICE Routine 11/15/2024 5 :29 PM PRINTING WORKER SUPERVISOR POCT GLUCOSE DEVICE Routine 11/15/2024 1 :28 PM PRINTING WORKER SUPERVISOR POCT GLUCOSE DEVICE Routine 11/15/2024 8 :56 AM PRINTING WORKER SUPERVISOR MAGNESIUM Routine 11/15/2024 4:35 AM PRINTING WORKER SUPERVISOR EGFR Routine 11/15/2024 4:35 AM PRINTING WORKER SUPERVISOR DIFFERENTIAL AUTO Routine 11/15/2024 4:3 5 AM PRINTING WORKER SUPERVISOR PROTIME-INR Routine 11/15/2024 4:35 AM PRINTING WORKER SUPERVISOR COMPREHENSIVE METABOLIC PANEL Routine 11/15/2024 4:35 AM PRINTING WORKER SUPERVISOR CBC WITH AUTO DIFFERENTIAL Routine 11/15/2024 4:35 AM PRINTING WORKER SUPERVISOR POCT GLUCOSE DEVICE Routine 11/14/2024 9 :28 PM PRINTING WORKER SUPERVISOR POCT GLUCOSE DEVICE Routine 11/14/2024 5 :48 PM PRINTING WORKER SUPERVISOR SODIUM, URINE, RANDOM Routine 11/14/2024 3:29 PM PRINTING WORKER SUPERVISOR URINALYSIS AND REFLEX TO MICROSCOPIC AND CULTURE STAT 11/14/2024 3:28 PM PRINTING WORKER SUPERVISOR AMMONIA Add-On 11/14/2024 2:16 PM PRINTING WORKER SUPERVISOR POCT GLUCOSE DEVICE Routine 11/14/2024 1 1:21 AM PRINTING WORKER SUPERVISOR POCT GLUCOSE DEVICE Routine 11/14/2024 8 :11 AM PRINTING WORKER SUPERVISOR EGFR Routine 11/14/2024 5:03 AM PRINTING WORKER SUPERVISOR DIFFERENTIAL AUTO Routine 11/14/2024 5:0 3 AM PRINTING WORKER SUPERVISOR COMPREHENSIVE METABOLIC PANEL Routine 11/14/2024 5:03 AM PRINTING WORKER SUPERVISOR CBC WITH AUTO DIFFERENTIAL Routine 11/14/2024 5:03 AM PRINTING WORKER SUPERVISOR POCT GLUCOSE DEVICE Routine 11/14/2024 4 :41 AM PRINTING WORKER SUPERVISOR POCT GLUCOSE DEVICE Routine 11/13/2024 7 :59 PM PRINTING WORKER SUPERVISOR POCT GLUCOSE DEVICE Routine 11/13/2024 5 :16 [address]ING [address] KNEE LEFT WO CONTRAST IP Routine 11/13/2024 4:52 PM PRINTING WORKER SUPERVISOR US CHEST IP Routine 11/13/2024 2:21 PM PRINTING WORKER SUPERVISOR POCT GLUCOSE DEVICE Routine 11/13/2024 2 :13 PM PRINTING WORKER SUPERVISOR FLUORO GUIDED ASPIRATION KNEE LEFT IP Routine 11/13/2024 1:30 PM PRINTING WORKER SUPERVISOR EGFR Routine 11/13/2024 9:02 AM PRINTING WORKER SUPERVISOR DIFFERENTIAL AUTO Routine 11/13/2024 9:0 2 AM PRINTING WORKER SUPERVISOR COMPREHENSIVE METABOLIC PANEL Routine 11/13/2024 9:02 AM PRINTING WORKER SUPERVISOR CBC WITH AUTO DIFFERENTIAL Routine 11/13/2024 9:02 AM PRINTING WORKER SUPERVISOR MAGNESIUM Routine 11/13/2024 9:02 AM PRINTING WORKER SUPERVISOR POCT GLUCOSE DEVICE Routine 11/13/2024 8 :00 AM PRINTING WORKER SUPERVISOR STREP PNEUMONIAE AG, URINE Routine 11/13/2024 12:28 AM PRINTING WORKER SUPERVISOR LEGIONELLA ANTIGEN, URINE Routine 11/13/2024 12:28 AM PRINTING WORKER SUPERVISOR POCT GLUCOSE DEVICE Routine 11/12/2024 1 0:04 PM PRINTING WORKER SUPERVISOR TRANSTHORACIC ECHO (TTE) COMPLETE W DOPPLER/CF WO CONTRAST Routine 11/12/2024 4:14 PM PRINTING WORKER SUPERVISOR XR KNEE LEFT 1 OR 2 VIEWS IP Routine 11/12/2024 2:18 PM PRINTING WORKER SUPERVISOR POCT GLUCOSE DEVICE Routine 11/12/2024 1 2:11 PM PRINTING WORKER SUPERVISOR POCT GLUCOSE DEVICE Routine 11/12/2024 1 0:02 AM PRINTING WORKER SUPERVISOR EGFR Routine 11/12/2024 8:29 AM PRINTING WORKER SUPERVISOR DIFFERENTIAL AUTO Routine 11/12/2024 8:2 9 AM PRINTING WORKER SUPERVISOR CBC WITH AUTO DIFFERENTIAL Routine 11/12/2024 8:29 AM PRINTING WORKER SUPERVISOR COMPREHENSIVE METABOLIC PANEL Routine 11/12/2024 8:29 AM PRINTING WORKER SUPERVISOR POCT GLUCOSE DEVICE Routine 11/12/2024 3 :01 AM PRINTING WORKER SUPERVISOR BLOOD CULTURE STAT 11/11/2024 9:45 PM PRINTING WORKER SUPERVISOR BLOOD CULTURE STAT 11/11/2024 9:45 PM PRINTING WORKER SUPERVISOR CT CHEST ABDOMEN PELVIS WO CONTRAST ED 11/11/2024 8:07 PM PRINTING WORKER SUPERVISOR XR CHEST 1 VIEW ED 11/11/2024 5:30 PM PRINTING WORKER SUPERVISOR EGFR STAT 11/11/2024 5:10 PM PRINTING WORKER SUPERVISOR DIFFERENTIAL AUTO STAT 11/11/2024 5:1 0 PM PRINTING WORKER SUPERVISOR PRO B-TYPE NATRIURETIC PEPTIDE STAT 11/11/2024 5:10 PM PRINTING WORKER SUPERVISOR SEPSIS LACTATE WITH REFLEX Routine 11/11/2024 5:10 PM PRINTING WORKER SUPERVISOR COMPREHENSIVE METABOLIC PANEL STAT 11/11/2024 5:10 PM PRINTING WORKER SUPERVISOR CBC WITH AUTO DIFFERENTIAL STAT 11/11/2024 5:10 PM PRINTING WORKER SUPERVISOR CARDIOLOGY DOCUMENT SCAN Routine 11/01/2024 10:08 AM PRINTING WORKER SUPERVISOR CARDIOLOGY DOCUMENT SCAN Routine 10/31/2024 9:21 AM PRINTING WORKER SUPERVISOR POCT LIPID PANEL Routine 11/15/2023 2:47 PM PRINTING WORKER SUPERVISOR Lipid screening from Last 3 Months or [...] Stewart Greene M.D. RB: BECKI Report ID: [id number] Reading Location: [id number] Procedure Note Stewart Greene MD - 12/30/2024 [...] Stewart Greene M.D. RB: BECKI Report ID: [id number] Reading Location: [id number] us Samara MEDEIROS IMJaylyn XR PROCEDURES Final Result * US SONIA (11/26/2024 2:32 PM PRINTING WORKER SUPERVISOR) Anatomical Region Laterality Modality Vascular N/A Ultrasound 11/26/2024 12:3 5 PM PRINTING WORKER SUPERVISOR Narrative 11/27/2024 9:12 AM PRINTING WORKER SUPERVISOR Vascular & Vein Surgery [address] [facility] [place] [address] Lower Extremity Arterial Doppler Report Patient Name: LOU ISLAS B : 1955 Study Date: 11/26/2024 12:35:00 PM Gender: F Drive Away Driver: Maira Gonzalez Elijah Location: VVSE Ref Provider: LEXIE RUCKER Quality: Adequate Order Provider: LEXIE RUCKER PROCEDURES: Arterial Report: Ankle - Brachial Index Doppler exam. INDICATIONS: BLE wounds with varicose veins. HISTORY: Hypertension. Hyperlipidemia. Diabetic. CHF. Former smoker. COMPARISONS: No previous exams. MEASUREMENTS: Right Value Left Value Rt Brachial Pressure 104 mmHg Lt Brachial Pressure 111 mmHg Rt DESIGN ASSEMBLER Pressure >220 mmHg Lt DESIGN ASSEMBLER Pressure >220 mmHg Rt DPA Pressure 196 [...] By: Lexie Rucker MD 11/27/2024 8:47:23 AM PRINTING WORKER SUPERVISOR Procedure Note Lexie Rucker MD - 11/27/2024 Vascular & Vein Surgery [address] [facility] [place] [address] Lower Extremity Arterial Doppler Report Patient Name: LOU ISLAS B : 1955 Study Date: 11/26/2024 12:35:00 PM Gender: F Drive Away Driver: Maira Gonzalez RVT Location: VVSE Ref Provider: LEXIE RUCKER Quality: Adequate Order Provider: LEXIE RUCKER PROCEDURES: Arterial Report: Ankle - Brachial Index Doppler exam. INDICATIONS: BLE wounds with varicose veins. HISTORY: Hypertension. Hyperlipidemia. Diabetic. CHF. Former smoker. COMPARISONS: No previous exams. MEASUREMENTS: Right Value Left Value Rt Brachial Pressure 104 mmHg Lt Brachial Pressure 111 mmHg Rt DESIGN ASSEMBLER Pressure >220 mmHg Lt DESIGN ASSEMBLER Pressure >220 mmHg Rt DPA Pressure 196 [...] By: Lexie Rucker MD 11/27/2024 8:47:23 AM PRINTING WORKER SUPERVISOR us Lexie Rucker MD IMG US PROCEDURES Final Result * US Venous Reflux Bilateral (11/26/2024 2:32 PM PRINTING WORKER SUPERVISOR) Anatomical Region Laterality Modality Vascular Bilateral Ultrasound 11/26/2024 12:5 9 PM PRINTING WORKER SUPERVISOR Narrative 11/27/2024 9:12 AM PRINTING WORKER SUPERVISOR Vascular & Vein Surgery [address] [place] [address] Lower Extremity Venous Reflux Duplex Report Patient Name: LOU ISLAS B : 1955 (69y 7m) Study Date: 11/26/2024 12:59:40 PM Gender: F Drive Away Driver: Location: VVSE Ref Provider: LEXIE RUCKER Quality: [...] in sapheno-femoral junction and small saphenous vein. Hands Parter vein noted at distal posterior medial calf, [...] By: Lexie Rucker MD 11/27/2024 8:47:00 AM PRINTING WORKER SUPERVISOR Procedure Note Lexie Rucker MD - 11/27/2024 Vascular & Vein Surgery [address] [facility] [place] [address] Lower Extremity Venous Reflux Duplex Report Patient Name: LOU ISLAS B : 1955 (69y 7m) Study Date: 11/26/2024 12:59:40 PM Gender: F Drive Away Driver: NIEVES Location: VVSE Ref Provider: LEXIE RUCKER [...] noted in sapheno-femoral junction and small saphenous vein.Hands Parter vein noted at distal posterior medial calf, [...] By: Lexie Rucker MD 11/27/2024 8:47:00 AM PRINTING WORKER SUPERVISOR us Lexie Rucker MD IM US PROCEDURES Final Result * POCT glucose (11/20/2024 5:57 PM PRINTING WORKER SUPERVISOR) Glucose, POC 175 70 - 199 mg/dL Comment:Testing performed by : [address] [address] Blood 11/20/2024 5:57 PM PRINTING WORKER SUPERVISOR 11/20/2024 5:57 PM PRINTING WORKER SUPERVISOR Joe Herron MD LAB POCT ORDERABLES - DEVICE Final Result [facility] [address] [facility] Department [place] [address] * POCT glucose (11/20/2024 12:28 PM PRINTING WORKER SUPERVISOR) Glucose, POC 186 70 - 199 mg/dL Comment:Testing performed by : [address] [address] Glucose comment 1 Use This Result DAYANA CARPIO Comment:Testing performed by : [address] [address] Glucose comment 2 RN/MD Notified DAYANA CARPIO Comment:Testing performed by : [address] [address] Blood 11/20/2024 12:2 8 PM PRINTING WORKER SUPERVISOR 11/20/2024 12:28 PM PRINTING WORKER SUPERVISOR us Joe Herron MD LAB POCT ORDERABLES - DEVICE Final Result Performing Organization Address [facility] de Phone Number DAYANA [address] [place] [address] * POCT glucose (11/20/2024 8:57 AM PRINTING WORKER SUPERVISOR) Pathologist [facility] Glucose, POC 157 70 - 199 mg/dL Comment:Testing performed by : [address] [address] Glucose comment 1 Use This Result DAYANA CARPIO Comment:Testing performed by : [address] [address] Glucose comment 2 RN/MD Notified DAYANA Comment:Testing performed by : [address] [address] Blood 11/20/2024 8:57 AM PRINTING WORKER SUPERVISOR 11/20/2024 8:57 AM PRINTING WORKER SUPERVISOR us Joe Herron MD LAB POCT ORDERABLES - DEVICE Final Result Performing Organization Address [facility] Co de Phone Number DAYANA [address] [address] * (ABNORMAL) eGFR (11/20/2024 5:33 AM PRINTING WORKER SUPERVISOR) [facility] eGFR 24(L) >=60 mL/min/1. 73 m2 [...] was last reviewed 2021. Testing performed by: [address] [address] Blood 11/20/2024 5:33 AM PRINTING WORKER SUPERVISOR 11/20/2024 5:56 AM PRINTING WORKER SUPERVISOR us Ivan Vargas MD LAB BLOOD ORDERABLES Final Re sult DAYANA [address] [facility] Department [place] [address] * (ABNORMAL) Differential, auto (11/20/2024 5:33 AM PRINTING WORKER SUPERVISOR) Neutrophil abs 3.7 1.5 - 6.5 K/cumm Comment:Testing performed by : [address] [address] Imm gran abs 0.1 0.0 - 0.1 K/cumm DAYANA Comment:Testing performed by : [address] [address] Lymphocyte abs 1.1 0.8 - 3.3 K/cumm DAYANA Comment:Testing performed by : [address] [address] Monocyte abs 1.0(H) 0.2 - 0.8 K/cumm DAYANA Comment:Testing performed by : [address] [address] Eosinophil abs 0.8(H) 0.0 - 0.5 K/cumm DAYANA Comment:Testing performed by : [address] [address] Basophil abs 0.1 0.0 - 0.1 K/cumm DAYANA Comment:Testing performed by : [address] [address] Neutrophil pct 55.1 % DAYANA Comment: Interpretive Data Percent cell count reference ranges are not reported, since discordance with absolute values may lead to misinterpretation of CBC data. Current Interpretive Data was last revised on 2018. Testing performed by: [address] [address] Imm gran pct 1.2 % [facility] Comment: Interpretive Data Percent cell count reference ranges are not reported, since discordance with absolute values may lead to misinterpretation of CBC data. Current Interpretive Data was last revised on 2018. Testing performed by: [address] [address] Lymphocyte pct 16.2 % [facility] Comment: Interpretive Data Percent cell count reference ranges are not reported, since discordance with absolute values may lead to misinterpretation of CBC data. Current Interpretive Data was last revised on 2018. Testing performed by: [address] [address] Monocyte pct 14.3 % [facility] Comment: Interpretive Data Percent cell count reference ranges are not reported, since discordance with absolute values may lead to misinterpretation of CBC data. Current Interpretive Data was last revised on 2018. Testing performed by: [address] [address] Eosinophil pct 12.3 % [facility] Comment: Interpretive Data Percent cell count reference ranges are not reported, since discordance with absolute values may lead to misinterpretation of CBC data. Current Interpretive Data was last revised on 2018. Testing performed by: [address] [address] Basophil pct 0.9 % [facility] Comment: Interpretive Data Percent cell count reference ranges are not reported, since discordance with absolute values may lead to misinterpretation of CBC data. Current Interpretive Data was last revised on 2018. Testing performed by: [address] [address] Blood 11/20/2024 5:33 AM PRINTING WORKER SUPERVISOR 11/20/2024 5:56 AM PRINTING WORKER SUPERVISOR us Ivan Vargas MD LAB BLOOD ORDERABLES Final Re sult DAYANA [address] [facility] Department [place] [address] * (ABNORMAL) CBC with auto differential (11/20/2024 5:33 AM PRINTING WORKER SUPERVISOR) WBC 6.7 3.8 - 9.9 K/cumm Comment:Testing performed by : [address] [address] Hgb 9.2(L) 11.9 - 15.5 g/dL DAYANA Comment:Testing performed by : [address] [address] Hct 29.0(L) 35.6 - 45.5 % DAYANA Comment:Testing performed by : [address] [address] Plt 275 150 - 400 K/cumm DAYANA Comment:Testing performed by : [address] [address] MPV 11.0 9.1 - 12.3 fL DAYANA Comment:Testing performed by : [address] [address] RBC 2.80(L) 3.90 - 5.20 M/cumm DAYANA Comment:Testing performed by : [address] [address] MCV 103.6(H) 81.3 - 96.4 fL DAYANA Comment:Testing performed by : [address] [address] MCH 32.9 27.1 - 33.3 pg DAYANA Comment:Testing performed by : [address] [address] MCHC 31.7(L) 32.3 - 35.7 g/dL DAYANA Comment:Testing performed by : [address] [address] RDW CV 16.5(H) 11.1 - 14.9 % DAYANA Comment:Testing performed by : [address] [address] RDW SD 62.3(H) 35.7 - 48.1 fL CERNER MH Comment:Testing performed by : [address] [address] NRBC abs 0.00 0.00 - 0.01 K/cumm DAYANA CARPIO Comment:Testing performed by : [address] [address] Blood 11/20/2024 5:33 AM PRINTING WORKER SUPERVISOR 11/20/2024 5:56 AM PRINTING WORKER SUPERVISOR us Ivan Vargas MD LAB BLOOD ORDERABLES Final Re sult DAYANA [address] [facility] Department [place] [address] * (ABNORMAL) Comprehensive metabolic panel (11/20/2024 5:33 AM PRINTING WORKER SUPERVISOR) Sodium 134(L) 135 - 145 mmol/L Comment:Testing performed by : [address] [address] Potassium, pl 3.8 3.3 - 4.9 mmol/L DAYANA Comment:Testing performed by : [address] [address] Chloride 91(L) 97 - 110 mmol/L DAYAAN Comment:Testing performed by : [address] [address] CO2 26 22 - 32 mmol/L DAYANA Comment:Testing performed by : [address] [address] Anion gap 17(H) 2 - 15 mmol/L DAYANA Comment:Testing performed by : [address] [address] BUN 51(H) 6 - 25 mg/dL DAYANA Comment:Testing performed by : [address] [address] Creatinine 2.20(H) 0.60 - 1.10 mg/dL DAYANA CARPIO Comment:Testing performed by : [address] [address] Glucose 149 70 - 199 mg/dL DAYANA [...] was last revised 2022. Testing performed by: [address] [address] Calcium 10.3 8.5 - 10.3 mg/dL DAYANA Comment:Testing performed by : [address] [address] Bilirubin, total 1.3(H) 0.1 - 1.2 mg/dL DAYANA Comment:Testing performed by : [address] [address] Protein, pl 6.6 6.5 - 8.5 g/dL DAYANA Comment:Testing performed by : [address] [address] Albumin 3.8 3.5 - 5.0 g/dL DAYANA Comment:Testing performed by : [address] [address] Alk phos 391(H) 40 - 130 Units/L DAYANA Comment:Testing performed by : [address] [address] ALT 15 7 - 45 Units/L DAYANA Comment:Testing performed by : [address] [address] AST 29 10 - 45 Units/L DAYANA Comment:Testing performed by : [address] [address] [address] Blood 11/20/2024 5:33 AM PRINTING WORKER SUPERVISOR 11/20/2024 5:56 AM PRINTING WORKER SUPERVISOR Ivan Vargas MD LAB BLOOD ORDERABLES Final Re sult Performing Organization Address City/State/[facility] Co de Phone Number DAYANA [address] [place] [address] * (ABNORMAL) POCT glucose (11/19/2024 8:57 PM PRINTING WORKER SUPERVISOR) Glucose, POC 254(H) 70 - 199 mg/dL Comment:Testing performed by : [address] [address] Glucose comment 1 Use This Result DAYANA Comment:Testing performed by : [address] [address] Blood 11/19/2024 8:57 PM PRINTING WORKER SUPERVISOR 11/19/2024 8:57 PM PRINTING WORKER SUPERVISOR us Joe Herron MD LAB POCT ORDERABLES - DEVICE Final Result Performing Organization Address [facility] Co de Phone Number DAYANA [address] [address] * (ABNORMAL) POCT glucose (11/19/2024 5:10 PM PRINTING WORKER SUPERVISOR) Glucose, POC 225(H) 70 - 199 mg/dL Comment:Testing performed by : [address] [address] Blood 11/19/2024 5:10 PM PRINTING WORKER SUPERVISOR 11/19/2024 5:10 PM PRINTING WORKER SUPERVISOR us Joe Herron MD LAB POCT ORDERABLES - DEVICE Final Result Performing Organization Address [facility] Co de Phone Number [address] [address] * POCT glucose (11/19/2024 12:24 PM PRINTING WORKER SUPERVISOR) Glucose, POC 191 70 - 199 mg/dL Comment:Testing performed by : [address] [address] Blood 11/19/2024 12:2 4 PM PRINTING WORKER SUPERVISOR 11/19/2024 12:24 PM PRINTING WORKER SUPERVISOR Joe Herron MD LAB POCT ORDERABLES - DEVICE Final Result Performing Organization Address [facility] Co de Phone Number DAYANA [address] [address] * POCT glucose (11/19/2024 11:36 AM PRINTING WORKER SUPERVISOR) Glucose, POC 181 70 - 199 mg/dL Comment:Testing performed by : [address] [address] Blood 11/19/2024 11:3 6 AM PRINTING WORKER SUPERVISOR 11/19/2024 11:36 AM PRINTING WORKER SUPERVISOR Joe Herron MD LAB POCT ORDERABLES - DEVICE Final Result Performing Organization Address [facility] de Phone Number MARY ALICE[address] [address] * POCT glucose (11/19/2024 8:22 AM PRINTING WORKER SUPERVISOR) Glucose, POC 163 70 - 199 mg/dL Comment:Testing performed by : [address] [address] Glucose comment 1 Use This Result DAYANA Comment:Testing performed by : [address] [address] Blood 11/19/2024 8:22 AM PRINTING WORKER SUPERVISOR 11/19/2024 8:22 AM PRINTING WORKER SUPERVISOR Joe Herron MD LAB POCT ORDERABLES - DEVICE Final Result Performing Organization Address [facility] Co de Phone Number MARY ALICE[address] [address] * (ABNORMAL) eGFR (11/19/2024 6:23 AM PRINTING WORKER SUPERVISOR) eGFR 28(L) >=60 mL/min/1. 73 m2 Comment: [...] was last reviewed 2021. Testing performed by: [address] [address] Blood 11/19/2024 6:23 AM PRINTING WORKER SUPERVISOR 11/19/2024 6:31 AM PRINTING WORKER SUPERVISOR us Ivan Vargas MD LAB BLOOD ORDERABLES Final Re sult DAYANA [address] [facility] Department [place] [address] * (ABNORMAL) Differential, auto (11/19/2024 6:23 AM PRINTING WORKER SUPERVISOR) Neutrophil abs 3.7 1.5 - 6.5 K/cumm Comment:Testing performed by : [address] [address] Imm gran abs 0.1 0.0 - 0.1 K/cumm DAYANA Comment:Testing performed by : [address] [address] Lymphocyte abs 1.1 0.8 - 3.3 K/cumm DAYANA Comment:Testing performed by : [address] [address] Monocyte abs 1.0(H) 0.2 - 0.8 K/cumm DAYANA Comment:Testing performed by : [address] [address] Eosinophil abs 1.1(H) 0.0 - 0.5 K/cumm [facility] Comment:Testing performed by : [address] [address] Basophil abs 0.1 0.0 - 0.1 K/cumm DAYANA Comment:Testing performed by : [address] [address] Neutrophil pct 52.7 % [facility] Comment: Interpretive Data Percent cell count reference ranges are not reported, since discordance with absolute values may lead to misinterpretation of CBC data. Current Interpretive Data was last revised on 2018. Testing performed by: [address] [address] Imm gran pct 1.1 % [facility] Comment: Interpretive Data Percent cell count reference ranges are not reported, since discordance with absolute values may lead to misinterpretation of CBC data. Current Interpretive Data was last revised on 2018. Testing performed by: [address] [address] Lymphocyte pct 15.8 % [facility] Comment: Interpretive Data Percent cell count reference ranges are not reported, since discordance with absolute values may lead to misinterpretation of CBC data. Current Interpretive Data was last revised on 2018. Testing performed by: [address] [address] Monocyte pct 14.2 % [facility] Comment: Interpretive Data Percent cell count reference ranges are not reported, since discordance with absolute values may lead to misinterpretation of CBC data. Current Interpretive Data was last revised on 2018. Testing performed by: [address] [address] Eosinophil pct 15.2 % [facility] Comment: Interpretive Data Percent cell count reference ranges are not reported, since discordance with absolute values may lead to misinterpretation of CBC data. Current Interpretive Data was last revised on 2018. Testing performed by: [address] [address] Basophil pct 1.0 % [facility] Comment: Interpretive Data Percent cell count reference ranges are not reported, since discordance with absolute values may lead to misinterpretation of CBC data. Current Interpretive Data was last revised on 2018. Testing performed by: [address] [address] Blood 11/19/2024 6:23 AM PRINTING WORKER SUPERVISOR 11/19/2024 6:31 AM PRINTING WORKER SUPERVISOR us Ivan Vargas MD LAB BLOOD ORDERABLES Final Re sult DAYANA [address] [facility] Department [place] [address] * (ABNORMAL) CBC with auto differential (11/19/2024 6:23 AM PRINTING WORKER SUPERVISOR) WBC 7.0 3.8 - 9.9 K/cumm Comment:Testing performed by : [address] [address] Hgb 8.9(L) 11.9 - 15.5 g/dL DAYANA Comment:Testing performed by : [address] [address] Hct 28.1(L) 35.6 - 45.5 % DAYANA Comment:Testing performed by : [address] [address] Plt 268 150 - 400 K/cumm DAYANA Comment:Testing performed by : [address] [address] MPV 11.2 9.1 - 12.3 fL DAYANA Comment:Testing performed by : [address] [address] RBC 2.75(L) 3.90 - 5.20 M/cumm DAYANA Comment:Testing performed by : [address] [address] MCV 102.2(H) 81.3 - 96.4 fL DAYANA Comment:Testing performed by : [address] [address] MCH 32.4 27.1 - 33.3 pg DAYANA CARPIO Comment:Testing performed by : [facility], [address] [place] [address]., [address] MCHC 31.7(L) 32.3 - 35.7 g/dL DAYANA CARPIO Comment:Testing performed by : [address] [address] RDW CV 16.5(H) 11.1 - 14.9 % DAYANA CARPIO Comment:Testing performed by : [address] [address] RDW SD 60.4(H) 35.7 - 48.1 fL DAYANA CARPIO Comment:Testing performed by : [address] [address] NRBC abs 0.00 0.00 - 0.01 K/cumm DAYANA CARPIO Comment:Testing performed by : [address] [address] Blood 11/19/2024 6:23 AM PRINTING WORKER SUPERVISOR 11/19/2024 6:31 AM PRINTING WORKER SUPERVISOR us Ivan Vargas MD LAB BLOOD ORDERABLES Final Re sult Performing Organization Address City/[facility]/ZIP Co de Phone Number DAYANA [address] [place] [address] * Ammonia (11/19/2024 6:23 AM PRINTING WORKER SUPERVISOR) Ammonia 24 <=50 mcmol/L Comment: Please note on 02/21/2024 the unit of measure changed from mcg/dL to mcmol/L. Current Interpretive Data was last revised on 2024. Testing performed by: [address] [address] Blood 11/19/2024 6:23 AM PRINTING WORKER SUPERVISOR 11/19/2024 6:27 AM PRINTING WORKER SUPERVISOR Ivan Vargas MD LAB BLOOD ORDERABLES Final Re sult Performing Organization Address City/[facility]/ZIP Co de Phone Number DAYANA [address] [place] [address] * (ABNORMAL) Comprehensive metabolic panel (11/19/2024 6:23 AM PRINTING WORKER SUPERVISOR) Sodium 133(L) 135 - 145 mmol/L Comment:Testing performed by : [address] [address] Potassium, pl 3.6 3.3 - 4.9 mmol/L DAYANA Comment:Testing performed by : [address] [address] Chloride 92(L) 97 - 110 mmol/L [facility] Comment:Testing performed by : [address], [place]., [address] CO2 27 22 - 32 mmol/L DAYANA Comment:Testing performed by : [address] [address] Anion gap 14 2 - 15 mmol/L [facility] Comment:Testing performed by : [address] [address] BUN 46(H) 6 - 25 mg/dL [facility] Comment:Testing performed by : [address] [address] Creatinine 1.90(H) 0.60 - 1.10 mg/dL [facility] Comment:Testing performed by : [address] [address] Glucose 151 70 - 199 mg/dL [facility] Comment: Interpretive Data Fasting glucose [...] was last revised 2022. Testing performed by: [address] [address] Calcium 10.2 8.5 - 10.3 mg/dL DAYANA Comment:Testing performed by : [address] [address] Bilirubin, total 1.4(H) 0.1 - 1.2 mg/dL DAYANA CARPIO Comment:Testing performed by : [address] [address] Protein, pl 6.3(L) 6.5 - 8.5 g/dL DAYANA CARPIO Comment:Testing performed by : [address], [place]., [address] Albumin 3.6 3.5 - 5.0 g/dL DAYANA Comment:Testing performed by : [address], [place]., [address] Alk phos 390(H) 40 - 130 Units/L DAYANA Comment:Testing performed by : [address] [address] ALT 17 7 - 45 Units/L DAYANA Comment:Testing performed by : [address] [address] AST 31 10 - 45 Units/L DAYANA Comment:Testing performed by : [address] [address] Blood 11/19/2024 6:23 AM PRINTING WORKER SUPERVISOR 11/19/2024 6:31 AM PRINTING WORKER SUPERVISOR us Ivan Vargas MD LAB BLOOD ORDERABLES Final Re sult DAYANA [address] [facility] Department [place] [address] * (ABNORMAL) POCT glucose (11/18/2024 8:46 PM PRINTING WORKER SUPERVISOR) [facility] Glucose, POC 234(H) 70 - 199 mg/dL Comment:Testing performed by : [address] [address] Glucose comment 1 Use This Result DAYANA CARPIO Comment:Testing performed by : [address] [address] Glucose comment 2 RN/MD Notified DAYANA CARPIO Comment:Testing performed by : [address] [address] Blood 11/18/2024 8:46 PM PRINTING WORKER SUPERVISOR 11/18/2024 8:46 PM PRINTING WORKER SUPERVISOR us Ivan Vargas MD LAB POCT ORDERABLES - DEVICE Final Result DAYANA [address] [facility] Department [place] [address] * CT Abdomen Pelvis WO Contrast (11/18/2024 8:34 PM PRINTING WORKER SUPERVISOR) Anatomical Region Laterality Modality Body N/A Computed Tomogra phy 11/18/2024 9:07 PM PRINTING WORKER SUPERVISOR Narrative 11/18/2024 9:19 PM PRINTING WORKER SUPERVISOR EXAM DESCRIPTION: CT ABDOMEN PELVIS WO CONTRAST [...] Pedro Alexis M.D. KT: KT Report ID: [id number] Reading Location: [place] [address] Procedure Note Pedro Alexis MD - 11/18/2024 [...] Pedro Alexis M.D. KT: KIM Report ID: [id number] Reading Location: [place] [address] us Ivan Vargas MD IMG CT PROCEDURES Final Resul t * (ABNORMAL) POCT glucose (11/18/2024 5:49 PM PRINTING WORKER SUPERVISOR) [facility] Signature Glucose, POC 216(H) 70 - 199 mg/dL Comment:Testing performed by : [address] [address] Glucose comment 1 RN/MD Notified DAYANA CARPIO Comment:Testing performed by : [address] [address] Glucose comment 2 Use This Result DAYANA CARPIO Comment:Testing performed by : [address] [address] Blood 11/18/2024 5:49 PM PRINTING WORKER SUPERVISOR 11/18/2024 5:49 PM PRINTING WORKER SUPERVISOR Ivan Vargas MD LAB POCT ORDERABLES - DEVICE Final Result CERNER [address] [place] [address] * (ABNORMAL) POCT glucose (11/18/2024 12:43 PM PRINTING WORKER SUPERVISOR) [facility] Glucose, POC 232(H) 70 - 199 mg/dL Comment:Testing performed by : [address] [address] Glucose comment 1 Use This Result DAYANA Comment:Testing performed by : [address] [address] Blood 11/18/2024 12:4 3 PM PRINTING WORKER SUPERVISOR 11/18/2024 12:43 PM PRINTING WORKER SUPERVISOR Ivan Vargas MD LAB POCT ORDERABLES - DEVICE Final Result Performing Organization Address [facility] Co de Phone Number [address] [address] * POCT glucose (11/18/2024 7:55 AM PRINTING WORKER SUPERVISOR) [facility] Glucose, POC 145 70 - 199 mg/dL Comment:Testing performed by : [address] [address] Glucose comment 1 Use This Result DAYANA Comment:Testing performed by : [address] [address] Glucose comment 2 RN/MD Notified DAYANA Comment:Testing performed by : [address] [address] Blood 11/18/2024 7:55 AM PRINTING WORKER SUPERVISOR 11/18/2024 7:55 AM PRINTING WORKER SUPERVISOR Ivan Vargas MD LAB POCT ORDERABLES - DEVICE Final Result [address] [address] * (ABNORMAL) Differential, auto (11/18/2024 6:35 AM PRINTING WORKER SUPERVISOR) [facility] Neutrophil abs 3.7 1.5 - 6.5 K/cumm Comment:Testing performed by : [address], [place]., [address] Imm gran abs 0.1 0.0 - 0.1 K/cumm [facility] Comment:Testing performed by : [address], [place]., [address] Lymphocyte abs 1.0 0.8 - 3.3 K/cumm [facility] Comment:Testing performed by : [address] [address] Monocyte abs 1.2(H) 0.2 - 0.8 K/cumm [facility] Comment:Testing performed by : [address] [address] Eosinophil abs 1.0(H) 0.0 - 0.5 K/cumm [facility] Comment:Testing performed by : [address] [address] Basophil abs 0.1 0.0 - 0.1 K/cumm [facility] Comment:Testing performed by : [address] [address] Neutrophil pct 52.9 % [facility] Comment: Interpretive Data Percent cell count reference ranges are not reported, since discordance with absolute values may lead to misinterpretation of CBC data. Current Interpretive Data was last revised on 2018. Testing performed by: [address] [address] Imm gran pct 1.1 % [facility] Comment: Interpretive Data Percent cell count reference ranges are not reported, since discordance with absolute values may lead to misinterpretation of CBC data. Current Interpretive Data was last revised on 2018. Testing performed by: [address] [address] Lymphocyte pct 14.4 % [facility] Comment: Interpretive Data Percent cell count reference ranges are not reported, since discordance with absolute values may lead to misinterpretation of CBC data. Current Interpretive Data was last revised on 2018. Testing performed by: [address] [address] Monocyte pct 17.1 % [facility] Comment: Interpretive Data Percent cell count reference ranges are not reported, since discordance with absolute values may lead to misinterpretation of CBC data. Current Interpretive Data was last revised on 2018. Testing performed by: [address] [address] Eosinophil pct 13.5 % DAYANA CARPIO Comment: Interpretive Data Percent cell count reference ranges are not reported, since discordance with absolute values may lead to misinterpretation of CBC data. Current Interpretive Data was last revised on 2018. Testing performed by: [address] [address] Basophil pct 1.0 % DAYANA CARPIO Comment: Interpretive Data Percent cell count reference ranges are not reported, since discordance with absolute values may lead to misinterpretation of CBC data. Current Interpretive Data was last revised on 2018. Testing performed by: [address] [address] Blood 11/18/2024 6:35 AM PRINTING WORKER SUPERVISOR 11/18/2024 6:57 AM PRINTING WORKER SUPERVISOR us Ivan Vargas MD LAB BLOOD ORDERABLES Final Re sult DAYANA [address] [facility] Department [place] [address] * (ABNORMAL) CBC with auto differential (11/18/2024 6:35 AM PRINTING WORKER SUPERVISOR) Pathologist [facility] WBC 7.1 3.8 - 9.9 K/cumm Comment:Testing performed by : [address] [address] Hgb 9.0(L) 11.9 - 15.5 g/dL DAYANA CARPIO Comment:Testing performed by : [address] [address] Hct 28.2(L) 35.6 - 45.5 % DAYANA CARPIO Comment:Testing performed by : [address] [address] Plt 247 150 - 400 K/cumm DAYANA CARPIO Comment:Testing performed by : [address] [place]., [address] MPV 11.1 9.1 - 12.3 fL DAYANA Comment:Testing performed by : [address] [address] RBC 2.73(L) 3.90 - 5.20 M/cumm DAYANA CARPIO Comment:Testing performed by : [address], [address] MCV 103.3(H) 81.3 - 96.4 fL DAYANA Comment:Testing performed by : [address] [address] MCH 33.0 27.1 - 33.3 pg DAYANA Comment:Testing performed by : [address], [address] MCHC 31.9(L) 32.3 - 35.7 g/dL DAYANA Comment:Testing performed by : [address], [address] RDW CV 16.6(H) 11.1 - 14.9 % DAYANA Comment:Testing performed by : [address], [address] RDW SD 62.6(H) 35.7 - 48.1 fL DAYANA Comment:Testing performed by : [address], [address] NRBC abs 0.00 0.00 - 0.01 K/cumm DAYANA Comment:Testing performed by : [address], [address] Blood 11/18/2024 6:35 AM PRINTING WORKER SUPERVISOR 11/18/2024 6:57 AM PRINTING WORKER SUPERVISOR us Ivan Vargas MD LAB BLOOD ORDERABLES Final Re sult DAYANA [address] [facility] Department [place] [address] * (ABNORMAL) eGFR (11/18/2024 5:52 AM PRINTING WORKER SUPERVISOR) eGFR 28(L) >=60 mL/min/1. 73 m2 Comment: [...] was last reviewed 2021. Testing performed by: [address] [address] Blood 11/18/2024 5:52 AM PRINTING WORKER SUPERVISOR 11/18/2024 6:24 AM PRINTING WORKER SUPERVISOR Ivan Vargas MD LAB BLOOD ORDERABLES Final Re sult Performing Organization Address [facility] Co de Phone Number [address] [place] [address] * Folate (11/18/2024 5:52 AM PRINTING WORKER SUPERVISOR) Folic acid >20.0 >=5.0 ng/mL Comment:Testing performed by : [address] [address] Blood 11/18/2024 5:52 AM PRINTING WORKER SUPERVISOR 11/18/2024 6:24 AM PRINTING WORKER SUPERVISOR Ivan Vargas MD LAB BLOOD ORDERABLES Final Re sult Performing Organization Address City/[facility]/ZIP Co de Phone Number [address] [address] * Vitamin B12 (11/18/2024 5:52 AM PRINTING WORKER SUPERVISOR) Pathologist [facility] Vitamin B12 910 230 - 1,250 pg/mL Comment:Testing performed by : [address] [address] Blood 11/18/2024 5:52 AM PRINTING WORKER SUPERVISOR 11/18/2024 6:24 AM PRINTING WORKER SUPERVISOR Ivan Vargas MD LAB BLOOD ORDERABLES Final Re sult [facility] [address] [facility] Department [place] [address] * (ABNORMAL) Comprehensive metabolic panel (11/18/2024 5:52 AM PRINTING WORKER SUPERVISOR) Pathologist [facility] Sodium 132(L) 135 - 145 mmol/L Comment:Testing performed by : [address] [address] Potassium, pl 3.9 3.3 - 4.9 mmol/L DAYANA Comment:Testing performed by : [address] [address] Chloride 92(L) 97 - 110 mmol/L DAYANA Comment:Testing performed by : [address] [address] CO2 27 22 - 32 mmol/L DAYANA Comment:Testing performed by : [address] [address] Anion gap 13 2 - 15 mmol/L DAYANA Comment:Testing performed by : [address] [address] BUN 43(H) 6 - 25 mg/dL DAYANA Comment:Testing performed by : [address] [address] Creatinine 1.90(H) 0.60 - 1.10 mg/dL DAYANA Comment:Testing performed by : [address] [address] Glucose 140 70 - 199 mg/dL DAYANA [...] was last revised 2022. Testing performed by: [address] [address] Calcium 10.0 8.5 - 10.3 mg/dL DAYANA Comment:Testing performed by : [address] [address] Bilirubin, total 1.5(H) 0.1 - 1.2 mg/dL DAYANA Comment:Testing performed by : [address] [address] Protein, pl 6.3(L) 6.5 - 8.5 g/dL DAYANA Comment:Testing performed by : [address] [address] Albumin 3.8 3.5 - 5.0 g/dL DAYANA Comment:Testing performed by : [address] [address] Alk phos 369(H) 40 - 130 Units/L DAYANA Comment:Testing performed by : [address] [address] ALT 17 7 - 45 Units/L DAYANA Comment:Testing performed by : [address] [address] AST 36 10 - 45 Units/L DAYANA Comment:Testing performed by : [address] [address] Blood 11/18/2024 5:52 AM PRINTING WORKER SUPERVISOR 11/18/2024 6:24 AM PRINTING WORKER SUPERVISOR us Ivan Vargas MD LAB BLOOD ORDERABLES Final Re sult DAYANA [address] Department [place] [address] * (ABNORMAL) POCT glucose (11/17/2024 8:52 PM PRINTING WORKER SUPERVISOR) Glucose, POC 275(H) 70 - 199 mg/dL Comment:Testing performed by : [address] [address] Blood 11/17/2024 8:52 PM PRINTING WORKER SUPERVISOR 11/17/2024 8:52 PM PRINTING WORKER SUPERVISOR Ivan Vargas MD LAB POCT ORDERABLES - DEVICE Final Result Performing Organization Address [facility]/ZIP Co de Phone Number [address] [address] * (ABNORMAL) POCT glucose (11/17/2024 6:05 PM PRINTING WORKER SUPERVISOR) Glucose, POC 280(H) 70 - 199 mg/dL Comment:Testing performed by : [address] [address] Glucose comment 1 Use This Result DAYANA Comment:Testing performed by : [address] [address] Glucose comment 2 RN/MD Notified DAYANA Comment:Testing performed by : [address] [address] Blood 11/17/2024 6:05 PM PRINTING WORKER SUPERVISOR 11/17/2024 6:05 PM PRINTING WORKER SUPERVISOR Ivan Vargas MD LAB POCT ORDERABLES - DEVICE Final Result Performing Organization Address [facility]/ZIP Co de Phone Number [address] [address] * (ABNORMAL) POCT glucose (11/17/2024 1:08 PM PRINTING WORKER SUPERVISOR) Glucose, POC 236(H) 70 - 199 mg/dL Comment:Testing performed by : [address] [address] Glucose comment 1 Use This Result DAYANA Comment:Testing performed by : [facility], [address] [place] [address]., [address] Glucose comment 2 RN/MD Notified DAYANA Comment:Testing performed by : [address] [address] Blood 11/17/2024 1:08 PM PRINTING WORKER SUPERVISOR 11/17/2024 1:08 PM PRINTING WORKER SUPERVISOR Ivan Vargas MD LAB POCT ORDERABLES - DEVICE Final Result Performing Organization Address [facility] de Phone Number [address] [place] [address] * POCT glucose (11/17/2024 9:20 AM PRINTING WORKER SUPERVISOR) [facility] Glucose, POC 146 70 - 199 mg/dL Comment:Testing performed by : [address] [address] Glucose comment 1 Use This Result DAYANA Comment:Testing performed by : [facility], [address] [place] [address]., [address] Glucose comment 2 RN/MD Notified DAYANA Comment:Testing performed by : [address] [address] Blood 11/17/2024 9:20 AM PRINTING WORKER SUPERVISOR 11/17/2024 9:20 AM PRINTING WORKER SUPERVISOR Ivan Vargas MD LAB POCT ORDERABLES - DEVICE Final Result Performing Organization Address [facility] Co de Phone Number [address] [place] [address] * (ABNORMAL) eGFR (11/17/2024 7:01 AM PRINTING WORKER SUPERVISOR) [facility] eGFR 28(L) >=60 mL/min/1. 73 m2 [...] was last reviewed 2021. Testing performed by: [address] [address] Blood 11/17/2024 7:01 AM PRINTING WORKER SUPERVISOR 11/17/2024 7:33 AM PRINTING WORKER SUPERVISOR us Ivan Vargas MD LAB BLOOD ORDERABLES Final Re sult DAYANA [address] [facility] Department [place] [address] * (ABNORMAL) Differential, auto (11/17/2024 7:01 AM PRINTING WORKER SUPERVISOR) Neutrophil abs 3.8 1.5 - 6.5 K/cumm Comment:Testing performed by : [address] [address] Imm gran abs 0.1 0.0 - 0.1 K/cumm DAYANA Comment:Testing performed by : [address] [address] Lymphocyte abs 0.8 0.8 - 3.3 K/cumm DAYANA Comment:Testing performed by : [address] [address] Monocyte abs 1.0(H) 0.2 - 0.8 K/cumm DAYANA Comment:Testing performed by : [address] [address] Eosinophil abs 0.7(H) 0.0 - 0.5 K/cumm DAYANA Comment:Testing performed by : [address] [address] Basophil abs 0.1 0.0 - 0.1 K/cumm DAYANA Comment:Testing performed by : [address] [address] Neutrophil pct 58.2 % [facility] Comment: Interpretive Data Percent cell count reference ranges are not reported, since discordance with absolute values may lead to misinterpretation of CBC data. Current Interpretive Data was last revised on 2018. Testing performed by: [address] [address] Imm gran pct 0.9 % [facility] Comment: Interpretive Data Percent cell count reference ranges are not reported, since discordance with absolute values may lead to misinterpretation of CBC data. Current Interpretive Data was last revised on 2018. Testing performed by: [address] [address] Lymphocyte pct 12.4 % [facility] Comment: Interpretive Data Percent cell count reference ranges are not reported, since discordance with absolute values may lead to misinterpretation of CBC data. Current Interpretive Data was last revised on 2018. Testing performed by: [address] [address] Monocyte pct 15.8 % [facility] Comment: Interpretive Data Percent cell count reference ranges are not reported, since discordance with absolute values may lead to misinterpretation of CBC data. Current Interpretive Data was last revised on 2018. Testing performed by: [address] [address] Eosinophil pct 11.5 % [facility] Comment: Interpretive Data Percent cell count reference ranges are not reported, since discordance with absolute values may lead to misinterpretation of CBC data. Current Interpretive Data was last revised on 2018. Testing performed by: [address] [address] Basophil pct 1.2 % [facility] Comment: Interpretive Data Percent cell count reference ranges are not reported, since discordance with absolute values may lead to misinterpretation of CBC data. Current Interpretive Data was last revised on 2018. Testing performed by: [address] [place] [address] Blood 11/17/2024 7:01 AM PRINTING WORKER SUPERVISOR 11/17/2024 7:34 AM PRINTING WORKER SUPERVISOR us Ivan Vargas MD LAB BLOOD ORDERABLES Final Re sult [facility] [address] [facility] Department [place] [address] * (ABNORMAL) CBC with auto differential (11/17/2024 7:01 AM PRINTING WORKER SUPERVISOR) WBC 6.5 3.8 - 9.9 K/cumm Comment:Testing performed by : [address] [address] Hgb 8.9(L) 11.9 - 15.5 g/dL DAYANA Comment:Testing performed by : [address] [address] Hct 27.6(L) 35.6 - 45.5 % DAYANA Comment:Testing performed by : [address] [address] Plt 227 150 - 400 K/cumm DAYANA Comment:Testing performed by : [address] [address] MPV 11.2 9.1 - 12.3 fL DAYANA Comment:Testing performed by : [address] [address] RBC 2.70(L) 3.90 - 5.20 M/cumm DAYANA Comment:Testing performed by : [address] [address] MCV 102.2(H) 81.3 - 96.4 fL DAYANA Comment:Testing performed by : [address] [address] MCH 33.0 27.1 - 33.3 pg DAYANA CARPIO Comment:Testing performed by : [address] [address] MCHC 32.2(L) 32.3 - 35.7 g/dL DAYANA CARPIO Comment:Testing performed by : [address] [address] RDW CV 16.6(H) 11.1 - 14.9 % DAYANA CARPIO Comment:Testing performed by : [address] [address] RDW SD 60.4(H) 35.7 - 48.1 fL DAYANA CARPIO Comment:Testing performed by : [address] [address] NRBC abs 0.00 0.00 - 0.01 K/cumm DAYANA CARPIO Comment:Testing performed by : [address] [address] Blood 11/17/2024 7:01 AM PRINTING WORKER SUPERVISOR 11/17/2024 7:34 AM PRINTING WORKER SUPERVISOR us Ivan Vargas MD LAB BLOOD ORDERABLES Final Re sult DAYANA [address] [facility] Department [place] [address] * (ABNORMAL) Comprehensive metabolic panel (11/17/2024 7:01 AM PRINTING WORKER SUPERVISOR) Sodium 135 135 - 145 mmol/L Comment:Testing performed by : [address] [address] Potassium, pl 3.3 3.3 - 4.9 mmol/L DAYANA CARPIO Comment:Testing performed by : [address] [address] Chloride 92(L) 97 - 110 mmol/L DAYANA CARPIO Comment:Testing performed by : [address] [address] CO2 29 22 - 32 mmol/L DAYANA CARPIO Comment:Testing performed by : [address] [address] Anion gap 14 2 - 15 mmol/L DAYANA CARPIO Comment:Testing performed by : [address] [address] BUN 40(H) 6 - 25 mg/dL DAYANA CARPIO Comment:Testing performed by : [address] [address] Creatinine 1.90(H) 0.60 - 1.10 mg/dL DAYANA Comment:Testing performed by : [address] [address] Glucose 146 70 - 199 mg/dL [facility] Comment: Interpretive Data Fasting glucose >/= 126 [...] was last revised 2022. Testing performed by: [address] [address] Calcium 9.3 8.5 - 10.3 mg/dL DAYANA Comment:Testing performed by : [address] [address] Bilirubin, total 1.6(H) 0.1 - 1.2 mg/dL [facility] Comment:Testing performed by : [address] [address] Protein, pl 6.1(L) 6.5 - 8.5 g/dL [facility] Comment:Testing performed by : [address] [address] Albumin 3.8 3.5 - 5.0 g/dL [facility] Comment:Testing performed by : [address] [address] Alk phos 309(H) 40 - 130 Units/L DAYANA Comment:Testing performed by : [address] [address] ALT 14 7 - 45 Units/L DAYANA Comment:Testing performed by : [address] [address] AST 32 10 - 45 Units/L DAYANA Comment:Testing performed by : [address] [address] Blood 11/17/2024 7:01 AM PRINTING WORKER SUPERVISOR 11/17/2024 7:33 AM PRINTING WORKER SUPERVISOR Ivan Vargas MD LAB BLOOD ORDERABLES Final Re sult Performing Organization Address [facility] Co de Phone Number DAYANA [address] [facility] [place] [address] * (ABNORMAL) POCT glucose (11/16/2024 7:44 PM PRINTING WORKER SUPERVISOR) Glucose, POC 205(H) 70 - 199 mg/dL Comment:Testing performed by : [address] [address] Glucose comment 1 Use This Result DAYANA Comment:Testing performed by : [address] [address] Glucose comment 2 RN/MD Notified DAYANA Comment:Testing performed by : [address] [address] Blood 11/16/2024 7:44 PM PRINTING WORKER SUPERVISOR 11/16/2024 7:44 PM PRINTING WORKER SUPERVISOR Ivan Vargas MD LAB POCT ORDERABLES - DEVICE Final Result Performing Organization Address [facility] Co de Phone Number DAYANA [facility] [place] [address] * POCT glucose (11/16/2024 6:33 PM PRINTING WORKER SUPERVISOR) Glucose, POC 155 70 - 199 mg/dL Comment:Testing performed by : [address] [address] Glucose comment 1 Use This Result DAYANA Comment:Testing performed by : [address] [address] Glucose comment 2 RN/MD Notified DAYANA Comment:Testing performed by : [address] [address] Blood 11/16/2024 6:33 PM PRINTING WORKER SUPERVISOR 11/16/2024 6:33 PM PRINTING WORKER SUPERVISOR Ivan Vargas MD LAB POCT ORDERABLES - DEVICE Final Result Performing Organization Address [facility] Phone Number DAYANA [address] [place] [address] * (ABNORMAL) POCT glucose (11/16/2024 11:54 AM PRINTING WORKER SUPERVISOR) [facility] Glucose, POC 203(H) 70 - 199 mg/dL Comment:Testing performed by : [address] [address] Glucose comment 1 Use This Result DAYANA Comment:Testing performed by : [address] [address] Glucose comment 2 RN/MD Notified DAYANA Comment:Testing performed by : [address] [address] Blood 11/16/2024 11:5 4 AM PRINTING WORKER SUPERVISOR 11/16/2024 11:54 AM PRINTING WORKER SUPERVISOR Ivan Vargas MD LAB POCT ORDERABLES - DEVICE Final Result Performing Organization Address [facility] Co de Phone Number DAYANA [address] [place] [address] * (ABNORMAL) eGFR (11/16/2024 9:56 AM PRINTING WORKER SUPERVISOR) [facility] eGFR 26(L) >=60 mL/min/1. 73 m2 [...] was last reviewed 2021. Testing performed by: [facility], [address] [place] [address]., [address] Blood 11/16/2024 9:56 AM PRINTING WORKER SUPERVISOR 11/16/2024 10:30 AM PRINTING WORKER SUPERVISOR us Ivan Vargas MD LAB BLOOD ORDERABLES Final Re sult DAYANA [address] [facility] Department [place] [address] * (ABNORMAL) Differential, auto (11/16/2024 9:56 AM PRINTING WORKER SUPERVISOR) Neutrophil abs 4.2 1.5 - 6.5 K/cumm Comment:Testing performed by : [address] [address] Imm gran abs 0.1 0.0 - 0.1 K/cumm DAYANA Comment:Testing performed by : [address] [address] Lymphocyte abs 0.5(L) 0.8 - 3.3 K/cumm DAYANA Comment:Testing performed by : [address] [address] Monocyte abs 0.8 0.2 - 0.8 K/cumm DAYANA Comment:Testing performed by : [address] [address] Eosinophil abs 0.6(H) 0.0 - 0.5 K/cumm DAYANA Comment:Testing performed by : [address] [address] Basophil abs 0.1 0.0 - 0.1 K/cumm DAYANA Comment:Testing performed by : [address] [address] Neutrophil pct 67.6 % [facility] Comment: Interpretive Data Percent cell count reference ranges are not reported, since discordance with absolute values may lead to misinterpretation of CBC data. Current Interpretive Data was last revised on 2018. Testing performed by: [address] [address] Imm gran pct 1.0 % [facility] Comment: Interpretive Data Percent cell count reference ranges are not reported, since discordance with absolute values may lead to misinterpretation of CBC data. Current Interpretive Data was last revised on 2018. Testing performed by: [address] [address] Lymphocyte pct 8.2 % [facility] Comment: Interpretive Data Percent cell count reference ranges are not reported, since discordance with absolute values may lead to misinterpretation of CBC data. Current Interpretive Data was last revised on 2018. Testing performed by: [address] [address] Monocyte pct 12.5 % [facility] Comment: Interpretive Data Percent cell count reference ranges are not reported, since discordance with absolute values may lead to misinterpretation of CBC data. Current Interpretive Data was last revised on 2018. Testing performed by: [address] [address] Eosinophil pct 9.6 % [facility] Comment: Interpretive Data Percent cell count reference ranges are not reported, since discordance with absolute values may lead to misinterpretation of CBC data. Current Interpretive Data was last revised on 2018. Testing performed by: [address] [address] Basophil pct 1.1 % [facility] Comment: Interpretive Data Percent cell count reference ranges are not reported, since discordance with absolute values may lead to misinterpretation of CBC data. Current Interpretive Data was last revised on 2018. Testing performed by: [address] [address] Blood 11/16/2024 9:56 AM PRINTING WORKER SUPERVISOR 11/16/2024 10:29 AM PRINTING WORKER SUPERVISOR us Ivan Vargas MD LAB BLOOD ORDERABLES Final Re sult [facility] [address] [facility] Department [place] [address] * (ABNORMAL) CBC with auto differential (11/16/2024 9:56 AM PRINTING WORKER SUPERVISOR) WBC 6.2 3.8 - 9.9 K/cumm Comment:Testing performed by : [address] [address] Hgb 8.4(L) 11.9 - 15.5 g/dL DAYANA Comment:Testing performed by : [address] [address] Hct 26.7(L) 35.6 - 45.5 % DAYANA Comment:Testing performed by : [address] [address] Plt 216 150 - 400 K/cumm DAYANA Comment:Testing performed by : [address] [address] MPV 11.1 9.1 - 12.3 fL DAYANA Comment:Testing performed by : [address] [address] RBC 2.60(L) 3.90 - 5.20 M/cumm DAYANA Comment:Testing performed by : [address] [address] MCV 102.7(H) 81.3 - 96.4 fL DAYANA Comment:Testing performed by : [address] [address] MCH 32.3 27.1 - 33.3 pg DAYANA Comment:Testing performed by : [address] [address] MCHC 31.5(L) 32.3 - 35.7 g/dL DAYANA Comment:Testing performed by : [address] [address] RDW CV 16.6(H) 11.1 - 14.9 % DAYANA Comment:Testing performed by : [address], [address] RDW SD 61.2(H) 35.7 - 48.1 fL DAYANA CARPIO Comment:Testing performed by : [address] [address] NRBC abs 0.00 0.00 - 0.01 K/cumm DAYANA CARPIO Comment:Testing performed by : [address] [address] Blood 11/16/2024 9:56 AM PRINTING WORKER SUPERVISOR 11/16/2024 10:29 AM PRINTING WORKER SUPERVISOR Ivan Vargas MD LAB BLOOD ORDERABLES Final Re sult Performing Organization Address [facility] Co de Phone Number [address] [place] [address] * Hemoglobin A1c (11/16/2024 9:56 AM PRINTING WORKER SUPERVISOR) Hgb A1C 5.4 4.0 - 5.6 % Comment:Testing performed by : [address] [address] Estimated Average Glucose 108 mg/dL DAYANA CARPIO Comment: The ADA recommends reporting an estimated Average Glucose (eAG) with all Hemoglobin A1c results using the equation derived from a study of 507 normal and diabetic adults. Minority populations were underrepresented and children were not included. (Diabetes Care 31:3692-5659, 2008). The eAG is not equivalent to a fasting glucose. Testing performed by: [address] [address] Blood 11/16/2024 9:56 AM PRINTING WORKER SUPERVISOR 11/16/2024 10:29 AM PRINTING WORKER SUPERVISOR Ivan Vargas MD LAB BLOOD ORDERABLES Final Re sult Performing Organization Address [facility] Co de Phone Number [facility] [address] [facility] [place] [address] * (ABNORMAL) Comprehensive metabolic panel (11/16/2024 9:56 AM PRINTING WORKER SUPERVISOR) Sodium 133(L) 135 - 145 mmol/L Comment:Testing performed by : [facility], [address] [place] [address]., [address] Potassium, pl 3.1(L) 3.3 - 4.9 mmol/L [facility] Comment:Testing performed by : [address], [place]., [address] Chloride 92(L) 97 - 110 mmol/L DAYANA Comment:Testing performed by : [address], [place]., [address] CO2 27 22 - 32 mmol/L [facility] Comment:Testing performed by : [address], [place]., [address] Anion gap 14 2 - 15 mmol/L [facility] Comment:Testing performed by : [address], [place]., [address] BUN 39(H) 6 - 25 mg/dL [facility] Comment:Testing performed by : [address] [address] Creatinine 2.04(H) 0.60 - 1.10 mg/dL [facility] Comment:Testing performed by : [address] [address] Glucose 136 70 - 199 mg/dL [facility] Comment: Interpretive Data Fasting glucose [...] was last revised 2022. Testing performed by: [address] [address] Calcium 8.9 8.5 - 10.3 mg/dL [facility] Comment:Testing performed by : [address] [address] Bilirubin, total 1.7(H) 0.1 - 1.2 mg/dL [facility] Comment:Testing performed by : [address] [address] Protein, pl 6.6 6.5 - 8.5 g/dL DAYANA CARPIO Comment:Testing performed by : [address] [address] Albumin 4.2 3.5 - 5.0 g/dL DAYANA CARPIO Comment:Testing performed by : [address], [place]., [address] Alk phos 247(H) 40 - 130 Units/L DAYANA CARPIO Comment:Testing performed by : [address], [place]., [address] ALT 12 7 - 45 Units/L DAYANA Comment:Testing performed by : [address] [address] AST 30 10 - 45 Units/L DAYANA CARPIO Comment:Testing performed by : [address] [address] Blood 11/16/2024 9:56 AM PRINTING WORKER SUPERVISOR 11/16/2024 10:30 AM PRINTING WORKER SUPERVISOR Ivan Vargas MD LAB BLOOD ORDERABLES Final Re sult DAYANA [address] [facility] Department of Laboratories [place], [place] [id number] * POCT glucose (11/16/2024 8:53 AM PRINTING WORKER SUPERVISOR) [facility] Glucose, POC 146 70 - 199 mg/dL Comment:Testing performed by : [address] [address] Glucose comment 1 Use This Result DAYANA CARPIO Comment:Testing performed by : [address] [address] Glucose comment 2 RN/MD Notified DAYANA CARPIO Comment:Testing performed by : [address] [address] Blood 11/16/2024 8:53 AM PRINTING WORKER SUPERVISOR 11/16/2024 8:53 AM PRINTING WORKER SUPERVISOR Ivan Vargas MD LAB POCT ORDERABLES - DEVICE Final Result Performing Organization Address [facility]/ZIP Co de Phone Number DAYANA [address] [address] * POCT glucose (11/16/2024 12:30 AM PRINTING WORKER SUPERVISOR) Glucose, POC 156 70 - 199 mg/dL Comment:Testing performed by : [address] [address] Glucose comment 1 Use This Result DAYANA Comment:Testing performed by : [address] [address] Glucose comment 2 RN/MD Notified DAYANA Comment:Testing performed by : [address] [address] Blood 11/16/2024 12:3 0 AM PRINTING WORKER SUPERVISOR 11/16/2024 12:30 AM PRINTING WORKER SUPERVISOR Ivan Vargas MD LAB POCT ORDERABLES - DEVICE Final Result Performing Organization Address [facility] Co de Phone Number DAYANA [address] [address] * POCT glucose (11/15/2024 8:35 PM PRINTING WORKER SUPERVISOR) Glucose, POC 196 70 - 199 mg/dL Comment:Testing performed by : [address] [address] Glucose comment 1 Use This Result DAYANA Comment:Testing performed by : [address] [address] Glucose comment 2 RN/MD Notified DAYANA Comment:Testing performed by : [address] [address] Blood 11/15/2024 8:35 PM PRINTING WORKER SUPERVISOR 11/15/2024 8:35 PM PRINTING WORKER SUPERVISOR Ivan Vargas MD LAB POCT ORDERABLES - DEVICE Final Result Performing Organization Address City/[facility]/ZIP Co de Phone Number DAYANA [address] [place] [address] * POCT glucose (11/15/2024 5:29 PM PRINTING WORKER SUPERVISOR) Glucose, POC 152 70 - 199 mg/dL Comment:Testing performed by : [address] [address] Blood 11/15/2024 5:29 PM PRINTING WORKER SUPERVISOR 11/15/2024 5:29 PM PRINTING WORKER SUPERVISOR Ivan Vargas MD LAB POCT ORDERABLES - DEVICE Final Result DAYANA [address] [address] * POCT glucose (11/15/2024 1:28 PM PRINTING WORKER SUPERVISOR) Glucose, POC 154 70 - 199 mg/dL Comment:Testing performed by : [address] [address] Blood 11/15/2024 1:28 PM PRINTING WORKER SUPERVISOR 11/15/2024 1:28 PM PRINTING WORKER SUPERVISOR Ivan Vargas MD LAB POCT ORDERABLES - DEVICE Final Result Performing Organization Address City/[facility]/ZIP Co de Phone Number DAYANA [address] [place] [address] * POCT glucose (11/15/2024 8:56 AM PRINTING WORKER SUPERVISOR) Glucose, POC 130 70 - 199 mg/dL Comment:Testing performed by : [address] [address] Blood 11/15/2024 8:56 AM PRINTING WORKER SUPERVISOR 11/15/2024 8:56 AM PRINTING WORKER SUPERVISOR us Ivan Vargas MD LAB POCT ORDERABLES - DEVICE Final Result DAYANA [address] [place] [address] * (ABNORMAL) eGFR (11/15/2024 4:35 AM PRINTING WORKER SUPERVISOR) eGFR 24(L) >=60 mL/min/1. 73 m2 Comment: [...] was last reviewed 2021. Testing performed by: [address] [address] Blood 11/15/2024 4:35 AM PRINTING WORKER SUPERVISOR 11/15/2024 6:10 AM PRINTING WORKER SUPERVISOR us Ivan Vargas MD LAB BLOOD ORDERABLES Final Re sult [facility] [address] [facility] Department [place] [address] * (ABNORMAL) Differential, auto (11/15/2024 4:35 AM PRINTING WORKER SUPERVISOR) Pathologist [facility] Neutrophil abs 5.0 1.5 - 6.5 K/cumm Comment:Testing performed by : [address] [address] Imm gran abs 0.1 0.0 - 0.1 K/cumm DAYANA CARPIO Comment:Testing performed by : [address] [address] Lymphocyte abs 0.7(L) 0.8 - 3.3 K/cumm DAYANA Comment:Testing performed by : [address] [address] Monocyte abs 1.0(H) 0.2 - 0.8 K/cumm DAYANA Comment:Testing performed by : [address], [place]., [address] Eosinophil abs 0.6(H) 0.0 - 0.5 K/cumm [facility] Comment:Testing performed by : [address], [place]., [address] Basophil abs 0.1 0.0 - 0.1 K/cumm [facility] Comment:Testing performed by : [address] [address] Neutrophil pct 67.6 % [facility] Comment: Interpretive Data Percent cell count reference ranges are not reported, since discordance with absolute values may lead to misinterpretation of CBC data. Current Interpretive Data was last revised on 2018. Testing performed by: [address] [address] Imm gran pct 0.8 % [facility] Comment: Interpretive Data Percent cell count reference ranges are not reported, since discordance with absolute values may lead to misinterpretation of CBC data. Current Interpretive Data was last revised on 2018. Testing performed by: [address] [address] Lymphocyte pct 8.8 % [facility] Comment: Interpretive Data Percent cell count reference ranges are not reported, since discordance with absolute values may lead to misinterpretation of CBC data. Current Interpretive Data was last revised on 2018. Testing performed by: [address] [address] Monocyte pct 13.0 % [facility] Comment: Interpretive Data Percent cell count reference ranges are not reported, since discordance with absolute values may lead to misinterpretation of CBC data. Current Interpretive Data was last revised on 2018. Testing performed by: [address] [address] Eosinophil pct 8.7 % [facility] Comment: Interpretive Data Percent cell count reference ranges are not reported, since discordance with absolute values may lead to misinterpretation of CBC data. Current Interpretive Data was last revised on 2018. Testing performed by: [address] [address] Basophil pct 1.1 % DAYANA Comment: Interpretive Data Percent cell count reference ranges are not reported, since discordance with absolute values may lead to misinterpretation of CBC data. Current Interpretive Data was last revised on 2018. Testing performed by: [address] [address] Blood 11/15/2024 4:35 AM PRINTING WORKER SUPERVISOR 11/15/2024 6:15 AM PRINTING WORKER SUPERVISOR us Ivan Vargas MD LAB BLOOD ORDERABLES Final Re sult [facility] Department [place] [address] * (ABNORMAL) CBC with auto differential (11/15/2024 4:35 AM PRINTING WORKER SUPERVISOR) WBC 7.4 3.8 - 9.9 K/cumm Comment:Testing performed by : [address] [address] Hgb 8.6(L) 11.9 - 15.5 g/dL DAYANA CARPIO Comment:Testing performed by : [address] [address] Hct 26.5(L) 35.6 - 45.5 % DAYANA Comment:Testing performed by : [address] [address] Plt 238 150 - 400 K/cumm DAYANA Comment:Testing performed by : [address] [address] MPV 11.0 9.1 - 12.3 fL DAYANA CARPIO Comment:Testing performed by : [address] [address] RBC 2.59(L) 3.90 - 5.20 M/cumm DAYANA CARPIO Comment:Testing performed by : [address] [address] MCV 102.3(H) 81.3 - 96.4 fL DAYANA CARPIO Comment:Testing performed by : [address] [address] MCH 33.2 27.1 - 33.3 pg DAYANA CARPIO Comment:Testing performed by : [address] [address] MCHC 32.5 32.3 - 35.7 g/dL DAYANA CARPIO Comment:Testing performed by : [address] [address] RDW CV 16.4(H) 11.1 - 14.9 % DAYANA CARPIO Comment:Testing performed by : [address] [address] RDW SD 60.1(H) 35.7 - 48.1 fL DAYANA CARPIO Comment:Testing performed by : [address] [address] NRBC abs 0.00 0.00 - 0.01 K/cumm DAYANA Comment:Testing performed by : [address], [address] Blood 11/15/2024 4:35 AM PRINTING WORKER SUPERVISOR 11/15/2024 6:15 AM PRINTING WORKER SUPERVISOR us Ivan Vargas MD LAB BLOOD ORDERABLES Final Re sult DAY[facility] [address] [facility] Department [place] [address] * (ABNORMAL) Protime-INR (11/15/2024 4:35 AM PRINTING WORKER SUPERVISOR) PT 16.8(H) 12.0 - 14.6 sec Comment: Ref Range High Testing performed by: [address] [address] INR 1.4(H) 0.9 - 1.2 DAYANA CARPIO Comment: Ref Range High Interpretive data Oral anticoagulant therapeutic ranges: Venous thromboembolism prophylaxis or treatment: 2.0-3.0 CARDIOLOGY Standard range: 2.0-3.0 High-intensity range: 2.5-3.5 Refer to indication-specific guidelines for appropriate target ranges for prosthetic heart valve replacement. Current interpretive data was last revised on 2019. Testing performed by: [address] [address] Blood 11/15/2024 4:35 AM PRINTING WORKER SUPERVISOR 11/15/2024 6:10 AM PRINTING WORKER SUPERVISOR us Bravo Mckenzie MD LAB BLOOD ORDERABLES Final Re sult Performing Organization Address [facility] Co de Phone Number [address] [place] [address] * Magnesium (11/15/2024 4:35 AM PRINTING WORKER SUPERVISOR) Pathologist [facility] Magnesium 1.7 1.4 - 2.5 mg/dL Comment:Testing performed by : [address] [address] Blood 11/15/2024 4:35 AM PRINTING WORKER SUPERVISOR 11/15/2024 6:10 AM PRINTING WORKER SUPERVISOR Ivan Vargas MD LAB BLOOD ORDERABLES Final Re sult Performing Organization Address [facility] Co de Phone Number [address] [place] [address] * (ABNORMAL) Comprehensive metabolic panel (11/15/2024 4:35 AM PRINTING WORKER SUPERVISOR) Pathologist [facility] Sodium 135 135 - 145 mmol/L Comment:Testing performed by : [address] [address] Potassium, pl 3.1(L) 3.3 - 4.9 mmol/L DAYANA Comment:Testing performed by : [address] [address] Chloride 89(L) 97 - 110 mmol/L DAYANA Comment:Testing performed by : [address] [address] CO2 27 22 - 32 mmol/L DAYANA Comment:Testing performed by : [address] [address] Anion gap 19(H) 2 - 15 mmol/L [facility] Comment:Testing performed by : [address] [address] BUN 37(H) 6 - 25 mg/dL [facility] Comment:Testing performed by : [address] [address] Creatinine 2.20(H) 0.60 - 1.10 mg/dL [facility] Comment:Testing performed by : [address] [address] Glucose 103 70 - 199 mg/dL [facility] Comment: Interpretive Data Fasting glucose [...] was last revised 2022. Testing performed by: [address] [address] Calcium 8.4(L) 8.5 - 10.3 mg/dL [facility] Comment:Testing performed by : [address] [address] Bilirubin, total 1.6(H) 0.1 - 1.2 mg/dL [facility] Comment:Testing performed by : [address] [address] Protein, pl 6.1(L) 6.5 - 8.5 g/dL [facility] Comment:Testing performed by : [address] [address] Albumin 3.7 3.5 - 5.0 g/dL [facility] Comment:Testing performed by : [address] [address] Alk phos 267(H) 40 - 130 Units/L DAYANA CARPIO Comment:Testing performed by : [address] [address] ALT 14 7 - 45 Units/L DAYANA CARPIO Comment:Testing performed by : [address] [address] AST 30 10 - 45 Units/L DAYANA CARPIO Comment:Testing performed by : [address] [address] Blood 11/15/2024 4:35 AM PRINTING WORKER SUPERVISOR 11/15/2024 6:10 AM PRINTING WORKER SUPERVISOR Ivan Vargas MD LAB BLOOD ORDERABLES Final Re sult Performing Organization Address City/[facility]/ZIP Co de Phone Number DAYANA [facility] [place] [address] * POCT glucose (11/14/2024 9:28 PM PRINTING WORKER SUPERVISOR) Glucose, POC 138 70 - 199 mg/dL Comment:Testing performed by : [address] [address] Glucose comment 1 Use This Result DAYANA Comment:Testing performed by : [address] [address] Glucose comment 2 RN/MD Notified DAYANA CARPIO Comment:Testing performed by : [address] [address] Blood 11/14/2024 9:28 PM PRINTING WORKER SUPERVISOR 11/14/2024 9:28 PM PRINTING WORKER SUPERVISOR Ivan Vargas MD LAB POCT ORDERABLES - DEVICE Final Result Performing Organization Address City/[facility]/ZIP Co de Phone Number DAYANA [facility] [place] [address] * POCT glucose (11/14/2024 5:48 PM PRINTING WORKER SUPERVISOR) Glucose, POC 120 70 - 199 mg/dL Comment:Testing performed by : [address] [address] Glucose comment 1 Use This Result DAYANA CARPIO Comment:Testing performed by : [address] [address] Glucose comment 2 RN/MD Notified DAYANA Comment:Testing performed by : [address] [address] Blood 11/14/2024 5:48 PM PRINTING WORKER SUPERVISOR 11/14/2024 5:48 PM PRINTING WORKER SUPERVISOR Ivan Vargas MD LAB POCT ORDERABLES - DEVICE Final Result Performing Organization Address [facility] Co de Phone Number DAYANA [address] [place] [address] * Sodium, urine, random (11/14/2024 3:29 PM PRINTING WORKER SUPERVISOR) Sodium, ur 42 mmol/L Comment: Interpretive Data No reference range established. Current interpretive data was last revised 2019. Urine 11/14/2024 3:29 PM PRINTING WORKER SUPERVISOR 11/14/2024 6:41 PM PRINTING WORKER SUPERVISOR Bravo Mckenzie MD LAB URINE ORDERABLES Final Re sult Performing Organization Address [facility] Co de Phone Number [address] [place] [address] * (ABNORMAL) Urinalysis reflex to microscopic and culture Urine, clean voided (11/14/2024 3:28 PM PRINTING WORKER SUPERVISOR) Color, ur Yellow Yellow Comment:Testing performed by : [address] [address] Clarity, ur Clear Clear DAYANA Comment:Testing performed by : [address] [address] Specific gravity, ur 1.018 1.003 - 1.030 [facility] Comment:Testing performed by : [address] [address] pH, urine 5.5 DAYANA CARPIO Comment: Interpretive Data U rine pH is affected by diet, medications, systemic acid-base disturbances, and renal tubular function. pH may affect urinary stone formation. For example, urine pH below 6.0 may help reduce the tendency for calcium phosphate stones and pH greater than 6.0 may reduce the tendency for uric acid stone formation. Source: [facility] [place] Current Interpretive Data was last revised on 2017 Testing performed by: [facility], [address] [place] [address], [place]., [address] Protein, ur ql Negative Negative DAYANA Comment:Testing performed by : [address], [place]., [address] Glucose, ur ql 1+(A) Negative DAYANA Comment:Testing performed by : [address], [place]., [address] Ketones, ur Negative Negative DAY[facility] Comment:Testing performed by : [address], [place]., [address] Bilirubin, ur Negative Negative [facility] Comment:Testing performed by : [address], [place]., [address] Blood, ur Negative Negative [facility] Comment:Testing performed by : [address], [place]., [address] Urobilinogen, ur <2.0 <2.0 mg/dL [facility] Comment:Testing performed by : [address], [place]., [address] Nitrite, ur Negative Negative [facility] Comment:Testing performed by : [address], [place]., [address] Leukocyte esterase, ur Negative Negative DAY[facility] Comment:Testing performed by : [address], [place]., [address] UA reflex comment Reflex conditions for microscopic UA and culture not met. DAYANA Comment:Testing performed by : [address], [place]., [address] Urine, clean voided 11/14/2024 3:28 PM PRINTING WORKER SUPERVISOR 11/14/2024 3:49 PM PRINTING WORKER SUPERVISOR us Ivan Vargas MD LAB MICROBIOLOGY - GENERAL OR DERABLES Final Result DAYANA CARPIO [address] [place] [address] * Ammonia (11/14/2024 2:16 PM PRINTING WORKER SUPERVISOR) Ammonia 34 <=50 mcmol/L Comment: Please note on 02/21/2024 the unit of measure changed from mcg/dL to mcmol/L. Current Interpretive Data was last revised on 2024 Testing performed by: [address] [address] Blood 11/14/2024 2:16 PM PRINTING WORKER SUPERVISOR 11/14/2024 2:22 PM PRINTING WORKER SUPERVISOR Ivan Vargas MD LAB BLOOD ORDERABLES Final Re sult Performing Organization Address [facility]/ZIP Co de Phone Number DAYANA [address] [address] * POCT glucose (11/14/2024 11:21 AM PRINTING WORKER SUPERVISOR) Glucose, POC 129 70 - 199 mg/dL Comment:Testing performed by : [address] [address] Glucose comment 1 Use This Result DAYANA CARPIO Comment:Testing performed by : [address] [address] Glucose comment 2 RN/MD Notified DAYANA CARPIO Comment:Testing performed by : [address] [address] Blood 11/14/2024 11:2 1 AM PRINTING WORKER SUPERVISOR 11/14/2024 11:21 AM PRINTING WORKER SUPERVISOR Ivan Vargas MD LAB POCT ORDERABLES - DEVICE Final Result DAY[facility] [place] [address] * POCT glucose (11/14/2024 8:11 AM PRINTING WORKER SUPERVISOR) Glucose, POC 107 70 - 199 mg/dL Comment:Testing performed by : [address], [place]., [address] Glucose comment 1 Use This Result DAYANA Comment:Testing performed by : [address] [address] Blood 11/14/2024 8:11 AM PRINTING WORKER SUPERVISOR 11/14/2024 8:11 AM PRINTING WORKER SUPERVISOR Ivan Vargas MD LAB POCT ORDERABLES - DEVICE Final Result Performing Organization Address [facility] Phone Number DAYANA [address] [facility] [place] [address] * (ABNORMAL) eGFR (11/14/2024 5:03 AM PRINTING WORKER SUPERVISOR) eGFR 24(L) >=60 mL/min/1. 73 m2 Comment: [...] was last reviewed 2021. Testing performed by: [address] [address] Blood 11/14/2024 5:03 AM PRINTING WORKER SUPERVISOR 11/14/2024 5:33 AM PRINTING WORKER SUPERVISOR us Ivan Vargas MD LAB BLOOD ORDERABLES Final Re sult Performing Organization Address [facility] Co de Phone Number DAYANA [address] [facility] Department [place] [address] * (ABNORMAL) Differential, auto (11/14/2024 5:03 AM PRINTING WORKER SUPERVISOR) Neutrophil abs 4.8 1.5 - 6.5 K/cumm Comment:Testing performed by : [address] [address] Imm gran abs 0.0 0.0 - 0.1 K/cumm DAYANA Comment:Testing performed by : [address] [address] Lymphocyte abs 0.7(L) 0.8 - 3.3 K/cumm DAYANA Comment:Testing performed by : [address] [address] Monocyte abs 1.0(H) 0.2 - 0.8 K/cumm DAYANA Comment:Testing performed by : [address] [address] Eosinophil abs 0.7(H) 0.0 - 0.5 K/cumm DAYANA Comment:Testing performed by : [address] [address] Basophil abs 0.1 0.0 - 0.1 K/cumm DAYANA Comment:Testing performed by : [address] [address] Neutrophil pct 65.6 % DAYANA Comment: Interpretive Data Percent cell count reference ranges are not reported, since discordance with absolute values may lead to misinterpretation of CBC data. Current Interpretive Data was last revised on 2018. Testing performed by: [address] [address] Imm gran pct 0.4 % DAYANA Comment: Interpretive Data Percent cell count reference ranges are not reported, since discordance with absolute values may lead to misinterpretation of CBC data. Current Interpretive Data was last revised on 2018. Testing performed by: [address] [address] Lymphocyte pct 10.0 % [facility] Comment: Interpretive Data Percent cell count reference ranges are not reported, since discordance with absolute values may lead to misinterpretation of CBC data. Current Interpretive Data was last revised on 2018. Testing performed by: [address] [address] Monocyte pct 13.4 % DAYANA Comment: Interpretive Data Percent cell count reference ranges are not reported, since discordance with absolute values may lead to misinterpretation of CBC data. Current Interpretive Data was last revised on 2018. Testing performed by: [address] [address] Eosinophil pct 9.4 % DAYANA Comment: Interpretive Data Percent cell count reference ranges are not reported, since discordance with absolute values may lead to misinterpretation of CBC data. Current Interpretive Data was last revised on 2018. Testing performed by: [address] [address] Basophil pct 1.2 % DAYANA Comment: Interpretive Data Percent cell count reference ranges are not reported, since discordance with absolute values may lead to misinterpretation of CBC data. Current Interpretive Data was last revised on 2018. Testing performed by: [address] [address] Blood 11/14/2024 5:03 AM PRINTING WORKER SUPERVISOR 11/14/2024 5:34 AM PRINTING WORKER SUPERVISOR us Ivan Vargas MD LAB BLOOD ORDERABLES Final Re sult [facility] [address] [facility] Department [place] [address] * (ABNORMAL) CBC with auto differential (11/14/2024 5:03 AM PRINTING WORKER SUPERVISOR) WBC 7.3 3.8 - 9.9 K/cumm Comment:Testing performed by : [address] [address] Hgb 8.5(L) 11.9 - 15.5 g/dL DAYANA Comment:Testing performed by : [address] [address] Hct 26.2(L) 35.6 - 45.5 % DAYANA Comment:Testing performed by : [address] [address] Plt 212 150 - 400 K/cumm DAYANA Comment:Testing performed by : [address] [address] MPV 10.7 9.1 - 12.3 fL DAYANA Comment:Testing performed by : [address] [address] RBC 2.57(L) 3.90 - 5.20 M/cumm DAYANA Comment:Testing performed by : [address] [address] MCV 101.9(H) 81.3 - 96.4 fL DAYANA Comment:Testing performed by : [address] [address] MCH 33.1 27.1 - 33.3 pg DAYANA Comment:Testing performed by : [address] [address] MCHC 32.4 32.3 - 35.7 g/dL DAYANA Comment:Testing performed by : [address] [address] RDW CV 16.8(H) 11.1 - 14.9 % DAYANA Comment:Testing performed by : [address] [address] RDW SD 60.4(H) 35.7 - 48.1 fL DAYANA Comment:Testing performed by : [address] [address] NRBC abs 0.00 0.00 - 0.01 K/cumm DAYANA Comment:Testing performed by : [address] [address] Blood 11/14/2024 5:03 AM PRINTING WORKER SUPERVISOR 11/14/2024 5:34 AM PRINTING WORKER SUPERVISOR us Ivan Vargas MD LAB BLOOD ORDERABLES Final Re sult DAYANA CARPIO [address] [facility] Department [place] [address] * (ABNORMAL) Comprehensive metabolic panel (11/14/2024 5:03 AM PRINTING WORKER SUPERVISOR) Sodium 135 135 - 145 mmol/L Comment:Testing performed by : [address] [address] Potassium, pl 3.5 3.3 - 4.9 mmol/L DAYANA Comment:Testing performed by : [address] [address] Chloride 91(L) 97 - 110 mmol/L DAY[facility] Comment:Testing performed by : [address] [address] CO2 28 22 - 32 mmol/L DAY[facility] Comment:Testing performed by : [address] [address] Anion gap 16(H) 2 - 15 mmol/L DAY[facility] Comment:Testing performed by : [address] [address] BUN 33(H) 6 - 25 mg/dL DAY[facility] Comment:Testing performed by : [address] [address] Creatinine 2.20(H) 0.60 - 1.10 mg/dL DAYANA Comment:Testing performed by : [address] [address] Glucose 94 70 - 199 mg/dL [facility] Comment: Interpretive Data Fasting glucose >/= [...] was last revised 2022. Testing performed by: [address] [address] Calcium 8.3(L) 8.5 - 10.3 mg/dL DAYANA Comment:Testing performed by : [address] [address] Bilirubin, total 1.4(H) 0.1 - 1.2 mg/dL DAY[facility] Comment:Testing performed by : [address] [address] Protein, pl 6.0(L) 6.5 - 8.5 g/dL DAYANA Comment:Testing performed by : [address] [address] Albumin 3.6 3.5 - 5.0 g/dL DAY[facility] Comment:Testing performed by : [address] [address] Alk phos 256(H) 40 - 130 Units/L [facility] Comment:Testing performed by : [address] [address] ALT 17 7 - 45 Units/L DAYANA Comment:Testing performed by : [address] [address] AST 30 10 - 45 Units/L DAY[facility] Comment:Testing performed by : [address] [address] Blood 11/14/2024 5:03 AM PRINTING WORKER SUPERVISOR 11/14/2024 5:33 AM PRINTING WORKER SUPERVISOR Ivan Vargas MD LAB BLOOD ORDERABLES Final Re sult [facility] [address] [facility] Department of Laboratories [place], [place] [address] * POCT glucose (11/14/2024 4:41 AM PRINTING WORKER SUPERVISOR) Glucose, POC 121 70 - 199 mg/dL Comment:Testing performed by : [address] [address] Glucose comment 1 Use This Result DAYANA Comment:Testing performed by : [address] [address] Blood 11/14/2024 4:41 AM PRINTING WORKER SUPERVISOR 11/14/2024 4:41 AM PRINTING WORKER SUPERVISOR us Ivan Vargas MD LAB POCT ORDERABLES - DEVICE Final Result Performing Organization Address [facility] Co de Phone Number DAYANA [address] [place] [address] * POCT glucose (11/13/2024 7:59 PM PRINTING WORKER SUPERVISOR) Glucose, POC 155 70 - 199 mg/dL Comment:Testing performed by : [address] [address] Glucose comment 1 Use This Result DAYANA Comment:Testing performed by : [address] [address] Blood 11/13/2024 7:59 PM PRINTING WORKER SUPERVISOR 11/13/2024 7:59 PM PRINTING WORKER SUPERVISOR Ivan Vargas MD LAB POCT ORDERABLES - DEVICE Final Result Performing Organization Address [facility] de Phone Number DAYANA [address] [address] * POCT glucose (11/13/2024 5:16 PM PRINTING WORKER SUPERVISOR) Glucose, POC 131 70 - 199 mg/dL Comment:Testing performed by : [address] [address] Glucose comment 1 Use This Result DAYANA Comment:Testing performed by : [address] [address] Glucose comment 2 RN/MD Notified DAYANA Comment:Testing performed by : [address] [address] Blood 11/13/2024 5:16 PM PRINTING WORKER SUPERVISOR 11/13/2024 5:16 PM PRINTING WORKER SUPERVISOR us Ivan Vargas MD LAB POCT ORDERABLES - DEVICE Final Result Performing Organization Address [facility] Co de Phone Number DAYANA [address] [address] * CT Knee Left WO Contrast (11/13/2024 4:52 PM PRINTING WORKER SUPERVISOR) Anatomical Region Laterality Modality Lower Extremities Left Computed Tomog marquis 11/13/2024 5:29 PM PRINTING WORKER SUPERVISOR Narrative 11/13/2024 5:36 PM PRINTING WORKER SUPERVISOR EXAM DESCRIPTION: CT KNEE LEFT WO CONTRAST [...] Ed Ny M.D. JA: BETH Report ID: [id number] Reading Location: [id number] Procedure Note Ed Ny MD - 11/13/2024 [...] Ed Ny M.D. JA: BETH Report ID: [id number] Reading Location: [place] [address] us Ivan Vargas MD IMG CT PROCEDURES Final Resul t * US Chest (11/13/2024 2:21 PM PRINTING WORKER SUPERVISOR) Anatomical Region Laterality Modality Chest N/A Ultrasound 11/13/2024 4:29 PM PRINTING WORKER SUPERVISOR Narrative 11/13/2024 4:32 PM PRINTING WORKER SUPERVISOR EXAM DESCRIPTION: US CHEST REASON FOR STUDY: Right pleural effusion, assess for loculations TECHNIQUE: A Dynamic assessment was performed of the right chest by the recovery coordinator, with selected grayscale images acquired and recorded [...] Will Stahl M.D. MZ: MZ Report ID: [id number] Reading Location: [id number] Procedure Note Will Stahl MD - 11/13/2024 EXAM DESCRIPTION: US CHEST REASON FOR STUDY: Right pleural effusion, assess for loculations TECHNIQUE: A Dynamic assessment was performed of the right chest by the recovery coordinator, with selected grayscale images acquired and recorded [...] Will Stahl M.D. MZ: MZ Report ID: [id number] Reading Location: [id number] us Ivan Vargas MD IM US PROCEDURES Final Resul t * POCT glucose (11/13/2024 2:13 PM PRINTING WORKER SUPERVISOR) [facility] Glucose, POC 127 70 - 199 mg/dL Comment:Testing performed by : [address] [address] Glucose comment 1 Use This Result DAYANA CARPIO Comment:Testing performed by : [address] [address] Glucose comment 2 RN/MD Notified DAYANA CARPIO Comment:Testing performed by : [address] [address] Blood 11/13/2024 2:13 PM PRINTING WORKER SUPERVISOR 11/13/2024 2:13 PM PRINTING WORKER SUPERVISOR us Ivan Vargas MD LAB POCT ORDERABLES - DEVICE Final Result DAYANA MH [address] [facility] Department [place] [address] * FL Fluoro Guided Aspiration Knee Left (11/13/2024 1:30 PM PRINTING WORKER SUPERVISOR) Anatomical Region Laterality Modality Knee Left Computed Radiogr aphy, Computed Radiography 11/13/2024 1:57 PM PRINTING WORKER SUPERVISOR Narrative 11/13/2024 2:11 PM PRINTING WORKER SUPERVISOR EXAM DESCRIPTION: FL FLUORO GUIDED ASPIRATION KNEE [...] Kedar Corrales M.D. MM: MM Report ID: [id number] Reading Location: [id number] Procedure Note Kedar Corrales MD - 11/13/2024 [...] Kedar Corrales M.D. MM: MM Report ID: [id number] Reading Location: [id number] us Ivan Vargas MD IMG FLUOROSCOPY PROCEDURES Fi nal Result * (ABNORMAL) eGFR (11/13/2024 9:02 AM PRINTING WORKER SUPERVISOR) eGFR 34(L) >=60 mL/min/1. 73 m2 Comment: [...] was last reviewed 2021. Testing performed by: [address] [address] Blood 11/13/2024 9:02 AM PRINTING WORKER SUPERVISOR 11/13/2024 10:02 AM PRINTING WORKER SUPERVISOR Ivan Vargas MD LAB BLOOD ORDERABLES Final Re sult DAYANA [address] [facility] Department [place] [address] * (ABNORMAL) Differential, auto (11/13/2024 9:02 AM PRINTING WORKER SUPERVISOR) Neutrophil abs 4.3 1.5 - 6.5 K/cumm Comment:Testing performed by : [address] [address] Imm gran abs 0.0 0.0 - 0.1 K/cumm DAYANA Comment:Testing performed by : [address] [address] Lymphocyte abs 0.7(L) 0.8 - 3.3 K/cumm DAYANA Comment:Testing performed by : [address] [address] Monocyte abs 0.9(H) 0.2 - 0.8 K/cumm DAYANA Comment:Testing performed by : [address] [address] Eosinophil abs 0.4 0.0 - 0.5 K/cumm DAYANA Comment:Testing performed by : [address] [address] Basophil abs 0.1 0.0 - 0.1 K/cumm DAYANA Comment:Testing performed by : [address] [address] Neutrophil pct 66.9 % [facility] Comment: Interpretive Data Percent cell count reference ranges are not reported, since discordance with absolute values may lead to misinterpretation of CBC data. Current Interpretive Data was last revised on 2018. Testing performed by: [address] [address] Imm gran pct 0.6 % [facility] Comment: Interpretive Data Percent cell count reference ranges are not reported, since discordance with absolute values may lead to misinterpretation of CBC data. Current Interpretive Data was last revised on 2018. Testing performed by: [address] [address] Lymphocyte pct 11.6 % [facility] Comment: Interpretive Data Percent cell count reference ranges are not reported, since discordance with absolute values may lead to misinterpretation of CBC data. Current Interpretive Data was last revised on 2018. Testing performed by: [address] [address] Monocyte pct 14.3 % [facility] Comment: Interpretive Data Percent cell count reference ranges are not reported, since discordance with absolute values may lead to misinterpretation of CBC data. Current Interpretive Data was last revised on 2018. Testing performed by: [address] [address] Eosinophil pct 5.5 % [facility] Comment: Interpretive Data Percent cell count reference ranges are not reported, since discordance with absolute values may lead to misinterpretation of CBC data. Current Interpretive Data was last revised on 2018. Testing performed by: [address] [address] Basophil pct 1.1 % [facility] Comment: Interpretive Data Percent cell count reference ranges are not reported, since discordance with absolute values may lead to misinterpretation of CBC data. Current Interpretive Data was last revised on 2018. Testing performed by: [address] [address] Blood 11/13/2024 9:02 AM PRINTING WORKER SUPERVISOR 11/13/2024 10:03 AM PRINTING WORKER SUPERVISOR us Ivan Vargas MD LAB BLOOD ORDERABLES Final Re sult DAYANA [address] [facility] Department [place] [address] * (ABNORMAL) CBC with auto differential (11/13/2024 9:02 AM PRINTING WORKER SUPERVISOR) WBC 6.4 3.8 - 9.9 K/cumm Comment:Testing performed by : [address] [address] Hgb 8.4(L) 11.9 - 15.5 g/dL DAYANA Comment:Testing performed by : [address] [address] Hct 25.2(L) 35.6 - 45.5 % DAYANA Comment:Testing performed by : [address] [address] Plt 196 150 - 400 K/cumm DAYANA Comment:Testing performed by : [address] [address] MPV 10.5 9.1 - 12.3 fL DAYANA Comment:Testing performed by : [address] [address] RBC 2.52(L) 3.90 - 5.20 M/cumm DAYANA Comment:Testing performed by : [address] [address] MCV 100.0(H) 81.3 - 96.4 fL DAYANA Comment:Testing performed by : [address] [address] MCH 33.3 27.1 - 33.3 pg DAYANA Comment:Testing performed by : [address] [address] MCHC 33.3 32.3 - 35.7 g/dL DAYANA CARPIO Comment:Testing performed by : [address] [address] RDW CV 16.8(H) 11.1 - 14.9 % DAYANA CARPIO Comment:Testing performed by : [address] [address] RDW SD 59.5(H) 35.7 - 48.1 fL DAYANA CARPIO Comment:Testing performed by : [address] [address] NRBC abs 0.00 0.00 - 0.01 K/cumm DAYANA Comment:Testing performed by : [address] [address] Blood 11/13/2024 9:02 AM PRINTING WORKER SUPERVISOR 11/13/2024 10:03 AM PRINTING WORKER SUPERVISOR Ivan Vargas MD LAB BLOOD ORDERABLES Final Re sult Performing Organization Address City/[facility] Co de Phone Number [address] [place] [address] * Magnesium (11/13/2024 9:02 AM PRINTING WORKER SUPERVISOR) Magnesium 1.5 1.4 - 2.5 mg/dL Comment:Testing performed by : [address] [address] Blood 11/13/2024 9:02 AM PRINTING WORKER SUPERVISOR 11/13/2024 10:02 AM PRINTING WORKER SUPERVISOR Ivan Vragas MD LAB BLOOD ORDERABLES Final Re sult Performing Organization Address City/[facility]/ZIP Co de Phone Number [address] [address] * (ABNORMAL) Comprehensive metabolic panel (11/13/2024 9:02 AM PRINTING WORKER SUPERVISOR) Sodium 135 135 - 145 mmol/L Comment:Testing performed by : [address] [address] Potassium, pl 3.6 3.3 - 4.9 mmol/L [facility] Comment:Testing performed by : [address] [address] Chloride 92(L) 97 - 110 mmol/L [facility] Comment:Testing performed by : [address], [place]., [address] CO2 29 22 - 32 mmol/L [facility] Comment:Testing performed by : [address] [address] Anion gap 14 2 - 15 mmol/L [facility] Comment:Testing performed by : [address], [place]., [address] BUN 28(H) 6 - 25 mg/dL [facility] Comment:Testing performed by : [address], [place]., [address] Creatinine 1.60(H) 0.60 - 1.10 mg/dL [facility] Comment:Testing performed by : [address] [address] Glucose 114 70 - 199 mg/dL [facility] Comment: Interpretive Data Fasting glucose [...] was last revised 2022. Testing performed by: [address] [address] Calcium 8.9 8.5 - 10.3 mg/dL [facility] Comment:Testing performed by : [address] [address] Bilirubin, total 1.5(H) 0.1 - 1.2 mg/dL [facility] Comment:Testing performed by : [address] [address] Protein, pl 5.7(L) 6.5 - 8.5 g/dL DAYANA Comment:Testing performed by : [address] [address] Albumin 3.3(L) 3.5 - 5.0 g/dL DAYANA CARPIO Comment:Testing performed by : [address] [address] Alk phos 272(H) 40 - 130 Units/L DAYANA Comment:Testing performed by : [address] [address] ALT 19 7 - 45 Units/L DAYANA Comment:Testing performed by : [address], [address] AST 36 10 - 45 Units/L DAYANA Comment:Testing performed by : [address], [address] Blood 11/13/2024 9:02 AM PRINTING WORKER SUPERVISOR 11/13/2024 10:02 AM PRINTING WORKER SUPERVISOR Ivan Vargas MD LAB BLOOD ORDERABLES Final Re sult Performing Organization Address [facility] Phone Number [facility] [address] [facility] Department [place] [address] * POCT glucose (11/13/2024 8:00 AM PRINTING WORKER SUPERVISOR) [facility] Glucose, POC 128 70 - 199 mg/dL Comment:Testing performed by : [address] [address] Glucose comment 1 Use This Result DAYANA Comment:Testing performed by : [address] [address] Glucose comment 2 RN/MD Notified DAYANA Comment:Testing performed by : [address] [address] Blood 11/13/2024 8:00 AM PRINTING WORKER SUPERVISOR 11/13/2024 8:00 AM PRINTING WORKER SUPERVISOR Ivan Vargas MD LAB POCT ORDERABLES - DEVICE Final Result Performing Organization Address City/[facility] Co de Phone Number DAYANA [address] [address] * Strep pneumoniae antigen, urine Urine (11/13/2024 12:28 AM PRINTING WORKER SUPERVISOR) S. pneumoniae Ag Negative Negative Comment: Interpretive [...] on 2022 Urine 11/13/2024 12:2 8 AM PRINTING WORKER SUPERVISOR 11/13/2024 2:18 AM PRINTING WORKER SUPERVISOR Tino Lynne MD LAB MICROBIOLOGY - G ENERAL ORDERABLES Final Result Performing Organization Address [facility] de Phone Number MARY ALICE[address] [address] * Legionella antigen Urine (11/13/2024 12:28 AM PRINTING WORKER SUPERVISOR) Legionella Ag Negative Negative Comment: Interpretive Data This test detects only Legionella pneumophila serogroup 1 antigen. Testing performed by [facility] ([phone]). Current interpretive data was last revised on 2020. Testing performed by: [facility], [address] [place]., [address] Urine 11/13/2024 12:2 8 AM PRINTING WORKER SUPERVISOR 11/13/2024 3:19 AM PRINTING WORKER SUPERVISOR us Tino Lynne MD LAB MICROBIOLOGY - G ENERAL ORDERABLES Final Result Performing Organization Address [facility] Co de Phone Number [place] [id number] [facility] [place] [address] * (ABNORMAL) POCT glucose (11/12/2024 10:04 PM PRINTING WORKER SUPERVISOR) [facility] Glucose, POC 207(H) 70 - 199 mg/dL Comment:Testing performed by : [facility], [address] [place] [address]., [address] Glucose comment 1 Use This Result DAYANA CARPIO Comment:Testing performed by : [facility], [address] [place] [address]., [address] Blood 11/12/2024 10:0 4 PM PRINTING WORKER SUPERVISOR 11/12/2024 10:04 PM PRINTING WORKER SUPERVISOR us Ivan Vargas MD LAB POCT ORDERABLES - DEVICE Final Result DAYANA CARPIO [address] [facility] Department [place] [address] * TRANSTHORACIC ECHO (TTE) COMPLETE W DOPPLER/CF WO CONTRAST (11/12/2024 4:14 PM PRINTING WORKER SUPERVISOR) Anatomical Region Laterality Modality Ultrasound 11/12/2024 3:49 PM PRINTING WORKER SUPERVISOR Narrative 11/12/2024 6:37 PM PRINTING WORKER SUPERVISOR Adult Echocardiogram + ----- + :Name: LOU ISLAS Study Date: 11/12/2024 Status: E : : Patient Location: [address]^[id number] : : Weight: 179 lbBP: [...] Date: 11/12/2024Status: MHE : : Patient Location: [address]^[id number]^MHeight: 65 in : : : 179 lbBP: [...] 1 or 2 Views (11/12/2024 2:18 PM PRINTING WORKER SUPERVISOR) Anatomical Region Laterality Modality Lower Extremities, Knee Left Computed Radiography 11/12/2024 3:15 PM PRINTING WORKER SUPERVISOR Narrative 11/12/2024 3:19 PM PRINTING WORKER SUPERVISOR EXAM DESCRIPTION: XR KNEE LEFT 1 OR [...] Juan Daily M.D. MF: SHARIFA Report ID: [id number] Reading Location: [id number] Procedure Note Juan Daily MD - 11/12/2024 [...] Juan Daily M.D. MF: SHARIFA Report ID: [id number] Reading Location: [id number] us Ivan Vargas MD IMG XR PROCEDURES Final Resul t * POCT glucose (11/12/2024 12:11 PM PRINTING WORKER SUPERVISOR) [facility] Glucose, POC 156 70 - 199 mg/dL Comment:Testing performed by : [address] [address] Glucose comment 1 Use This Result DAYANA Comment:Testing performed by : [address] [address] Blood 11/12/2024 12:1 1 PM PRINTING WORKER SUPERVISOR 11/12/2024 12:11 PM PRINTING WORKER SUPERVISOR Ivan Vargas MD LAB POCT ORDERABLES - DEVICE Final Result Performing Organization Address [facility] Co de Phone Number DAYANA [address] [place] [address] * POCT glucose (11/12/2024 10:02 AM PRINTING WORKER SUPERVISOR) [facility] Glucose, POC 125 70 - 199 mg/dL Comment:Testing performed by : [address] [address] Glucose comment 1 Use This Result DAYANA Comment:Testing performed by : [address] [address] Blood 11/12/2024 10:0 2 AM PRINTING WORKER SUPERVISOR 11/12/2024 10:02 AM PRINTING WORKER SUPERVISOR Ivan Vargas MD LAB POCT ORDERABLES - DEVICE Final Result Performing Organization Address City/[facility] Co de Phone Number [address] [place] [address] * (ABNORMAL) eGFR (11/12/2024 8:29 AM PRINTING WORKER SUPERVISOR) [facility] eGFR 49(L) >=60 mL/min/1. 73 m2 [...] was last reviewed 2021. Testing performed by: [address] [address] Blood 11/12/2024 8:29 AM PRINTING WORKER SUPERVISOR 11/12/2024 9:02 AM PRINTING WORKER SUPERVISOR Tino Lynne MD LAB BLOOD ORDERABLES Final Result DAYANA [address] Department [place] [address] * (ABNORMAL) Differential, auto (11/12/2024 8:29 AM PRINTING WORKER SUPERVISOR) Neutrophil abs 5.0 1.5 - 6.5 K/cumm Comment:Testing performed by : [address] [address] Imm gran abs 0.1 0.0 - 0.1 K/cumm DAYANA Comment:Testing performed by : [address] [address] Lymphocyte abs 0.8 0.8 - 3.3 K/cumm DAYANA Comment:Testing performed by : [address] [address] Monocyte abs 0.9(H) 0.2 - 0.8 K/cumm DAYANA CARPIO Comment:Testing performed by : [address] [address] Eosinophil abs 0.3 0.0 - 0.5 K/cumm ADYANA Comment:Testing performed by : [address] [address] Basophil abs 0.1 0.0 - 0.1 K/cumm DAYANA Comment:Testing performed by : [address] [address] Neutrophil pct 70.4 % [facility] Comment: Interpretive Data Percent cell count reference ranges are not reported, since discordance with absolute values may lead to misinterpretation of CBC data. Current Interpretive Data was last revised on 2018. Testing performed by: [address] [address] Imm gran pct 1.0 % [facility] Comment: Interpretive Data Percent cell count reference ranges are not reported, since discordance with absolute values may lead to misinterpretation of CBC data. Current Interpretive Data was last revised on 2018. Testing performed by: [address] [address] Lymphocyte pct 11.1 % [facility] Comment: Interpretive Data Percent cell count reference ranges are not reported, since discordance with absolute values may lead to misinterpretation of CBC data. Current Interpretive Data was last revised on 2018. Testing performed by: [address] [address] Monocyte pct 12.5 % [facility] Comment: Interpretive Data Percent cell count reference ranges are not reported, since discordance with absolute values may lead to misinterpretation of CBC data. Current Interpretive Data was last revised on 2018. Testing performed by: [address] [address] Eosinophil pct 4.1 % [facility] Comment: Interpretive Data Percent cell count reference ranges are not reported, since discordance with absolute values may lead to misinterpretation of CBC data. Current Interpretive Data was last revised on 2018. Testing performed by: [address] [address] Basophil pct 0.9 % [facility] Comment: Interpretive Data Percent cell count reference ranges are not reported, since discordance with absolute values may lead to misinterpretation of CBC data. Current Interpretive Data was last revised on 2018. Testing performed by: [address] [place] [address] Blood 11/12/2024 8:29 AM PRINTING WORKER SUPERVISOR 11/12/2024 9:03 AM PRINTING WORKER SUPERVISOR Tino Lynne MD LAB BLOOD ORDERABLES Final Result [facility] [address] [facility] Department [place] [address] * (ABNORMAL) CBC with auto differential (11/12/2024 8:29 AM PRINTING WORKER SUPERVISOR) Pathologist [facility] WBC 7.0 3.8 - 9.9 K/cumm Comment:Testing performed by : [address] [address] Hgb 8.7(L) 11.9 - 15.5 g/dL DAYANA Comment:Testing performed by : [address] [address] Hct 26.9(L) 35.6 - 45.5 % DAYANA Comment:Testing performed by : [address] [address] Plt 203 150 - 400 K/cumm DAYANA Comment:Testing performed by : [address] [address] MPV 10.4 9.1 - 12.3 fL DAYANA Comment:Testing performed by : [address] [address] RBC 2.68(L) 3.90 - 5.20 M/cumm DAYANA Comment:Testing performed by : [address] [address] MCV 100.4(H) 81.3 - 96.4 fL DAYANA Comment:Testing performed by : [address] [address] MCH 32.5 27.1 - 33.3 pg DAYANA CARPIO Comment:Testing performed by : [address] [address] MCHC 32.3 32.3 - 35.7 g/dL DAYANA CARPIO Comment:Testing performed by : [address] [address] RDW CV 17.0(H) 11.1 - 14.9 % DAYANA CARPIO Comment:Testing performed by : [address] [address] RDW SD 59.2(H) 35.7 - 48.1 fL DAYANA CARPIO Comment:Testing performed by : [address] [address] NRBC abs 0.00 0.00 - 0.01 K/cumm DAYANA CARPIO Comment:Testing performed by : [address] [address] Blood 11/12/2024 8:29 AM PRINTING WORKER SUPERVISOR 11/12/2024 9:03 AM PRINTING WORKER SUPERVISOR Tino Lynne MD LAB BLOOD ORDERABLES Final Result Performing Organization Address City/State/[facility] Co de Phone Number DAYANA CARPIO [facility] Department [place] [address] * (ABNORMAL) Comprehensive metabolic panel (11/12/2024 8:29 AM PRINTING WORKER SUPERVISOR) Sodium 137 135 - 145 mmol/L Comment:Testing performed by : [address] [address] Potassium, pl 3.4 3.3 - 4.9 mmol/L DAYANA CARPIO Comment:Testing performed by : [address] [address] Chloride 94(L) 97 - 110 mmol/L DAYANA CARPIO Comment:Testing performed by : [address] [address] CO2 29 22 - 32 mmol/L DAYANA CARPIO Comment:Testing performed by : [address] [address] Anion gap 14 2 - 15 mmol/L DAYANA CARPIO Comment:Testing performed by : [address] [address] BUN 23 6 - 25 mg/dL DAYANA CARPIO Comment:Testing performed by : [address] [address] Creatinine 1.20(H) 0.60 - 1.10 mg/dL DAYANA Comment:Testing performed by : [address] [address] Glucose 112 70 - 199 mg/dL [facility] Comment: Interpretive Data Fasting glucose [...] was last revised 2022. Testing performed by: [address] [address] Calcium 9.3 8.5 - 10.3 mg/dL [facility] Comment:Testing performed by : [address] [address] Bilirubin, total 1.8(H) 0.1 - 1.2 mg/dL [facility] Comment:Testing performed by : [address] [address] Protein, pl 5.9(L) 6.5 - 8.5 g/dL [facility] Comment:Testing performed by : [address] [address] Albumin 3.5 3.5 - 5.0 g/dL [facility] Comment:Testing performed by : [address] [address] Alk phos 297(H) 40 - 130 Units/L [facility] Comment:Testing performed by : [address] [address] ALT 21 7 - 45 Units/L [facility] Comment:Testing performed by : [address] [address] AST 46(H) 10 - 45 Units/L [facility] Comment:Testing performed by : [address], [place]., [address] Blood 11/12/2024 8:29 AM PRINTING WORKER SUPERVISOR 11/12/2024 9:02 AM PRINTING WORKER SUPERVISOR Tino Lynne MD LAB BLOOD ORDERABLES Final Result Performing Organization Address [facility] Co de Phone Number DAYANA [address] [address] * POCT glucose (11/12/2024 3:01 AM PRINTING WORKER SUPERVISOR) Glucose, POC 118 70 - 199 mg/dL Comment:Testing performed by : [facility], [address] [place] [address]., [address] Glucose comment 1 Use This Result DAYANA Comment:Testing performed by : [facility], [address] [place] [address]., [address] Blood 11/12/2024 3:01 AM PRINTING WORKER SUPERVISOR 11/12/2024 3:01 AM PRINTING WORKER SUPERVISOR Tino Lynne MD LAB POCT ORDERABLES - DEVICE Final Result Performing Organization Address [facility] Co de Phone Number DAYANA [address] [address] * Blood culture Blood Peripheral (11/11/2024 9:45 PM PRINTING WORKER SUPERVISOR) Report Final Report: No growth Comment:Testing performed by : [facility], [address] [place] [address] Blood (Peripheral) 11/11/2024 9:45 PM PRINTING WORKER SUPERVISOR 11/12/2024 1:21 AM PRINTING WORKER SUPERVISOR Narrative DAYANA - 11/16/2024 7:00 AM PRINTING WORKER SUPERVISOR From a different site than #1. Draw [...] performance characteristics have been verified by the [facility]. For questions about this culture, contact the Microbiology Laboratory at [phone]. Interpretive data was last revised on 24. Bravo Chino MD LAB MICROBIOLOGY - GEN ERAL ORDERABLES Final Result DAYANA [address] [facility] Department [place] [address] * Blood culture Blood Peripheral (11/11/2024 9:45 PM PRINTING WORKER SUPERVISOR) Report Final Report: No growth Comment:Testing performed by : [facility], [address] [facility] [place]., [address] Blood (Peripheral) 11/11/2024 9:45 PM PRINTING WORKER SUPERVISOR 11/12/2024 1:22 AM PRINTING WORKER SUPERVISOR Kaye ANNE - 11/16/2024 7:00 AM PRINTING WORKER SUPERVISOR Draw Blood cultures before administration of Antibiotics [...] performance characteristics have been verified by the [facility]. For questions about this culture, contact the Microbiology Laboratory at [phone]. Interpretive data was last revised on 24. us Bravo Chino MD LAB MICROBIOLOGY - GEN ERAL ORDERABLES Final Result DAYANA [address] [facility] Department [place] [address] * CT Chest Abdomen Pelvis WO Contrast (11/11/2024 8:07 PM PRINTING WORKER SUPERVISOR) Anatomical Region Laterality Modality Body N/A Computed Tomogra phy 11/11/2024 8:12 PM PRINTING WORKER SUPERVISOR Narrative 11/11/2024 8:29 PM PRINTING WORKER SUPERVISOR EXAM DESCRIPTION: CT CHEST ABDOMEN PELVIS WO CONTRAST REASON FOR STUDY: fluid overload, CHF, possible cirrhosis Pt c/o increasing swelling to bilateral lower extremities that is spreading to lower abd x approx 3 weeks. Pt currently in [facility] for [facility]hab d/t recent hospital admission for [...] in the right lower lobe dependently. PLEURA: Plsul-kn-mrucylbi right pleural effusion is present. MEDIASTINUM/JETT: No [...] streak artifact. OTHER: No significant abnormality. IMPRESSION: Fiudu-zd-ehrgzcih right pleural effusion with right lower lobe consolidation. Small patchy areas of density in the right upper and lower lobes may be infectious or inflammatory. Short-term follow-up is recommended. Small pericardial effusion. Hepatic cirrhosis. Cholelithiasis. Diffuse atherosclerotic disease. THIS IS AN ELECTRONICALLY VERIFIED FINAL REPORT 11/11/2024 8:29 PM - Electronically signed by Pedro De La Vega M.D. KH: [id number] Report ID: [id number] Reading Location: [place] [address] Procedure Note Pedro De La Vega MD - 11/11/2024 EXAM DESCRIPTION: CT CHEST ABDOMEN PELVIS WO CONTRAST REASON FOR STUDY: fluid overload, CHF, possible cirrhosis Pt c/o increasing swelling to bilateral lower extremities that isspreading to lower abd x approx 3 weeks. [facility]/ [facility] [...] in the right lower lobe dependently. PLEURA: Jetcg-ix-wdjcfojw right pleural effusion is present. MEDIASTINUM/JETT: No [...] streak artifact. OTHER: No significant abnormality. IMPRESSION: Yxsyg-kd-ixrtnrco right pleural effusion with right lower lobeconsolidation. Small patchy areas of density in the right upper and lower lobes may be infectious or inflammatory. Short-term follow-up is recommended. Small pericardial effusion. Hepatic cirrhosis. Cholelithiasis. Diffuse atherosclerotic disease. THIS IS AN ELECTRONICALLY VERIFIED FINAL REPORT 11/11/2024 8:29 PM - Electronically signed by Pedro De La Vega M.D. KH: [id number] Report ID: [id number] Reading Location: [id number] us Bravo Chino MD IMG CT PROCEDURES Manda l Result * XR Chest 1 Vw Portable (if patient condition/safety warrant portable) (11/11/2024 5:30 PM PRINTING WORKER SUPERVISOR) Anatomical Region Laterality Modality Body, Chest N/A Computed Radiogr aphy 11/11/2024 6:12 PM PRINTING WORKER SUPERVISOR Narrative 11/11/2024 6:12 PM PRINTING WORKER SUPERVISOR EXAM DESCRIPTION: XR CHEST 1 VIEW REASON FOR STUDY: Shortness of breath Pt c/o increasing swelling to bilateral lower extremities that is spreading to lower abd x approx 3 weeks. Pt currently in [facility] for rehab d/t recent hospital admission for [...] Eric Larson M.D. AG: CAM Report ID: [id number] Reading Location: [id number] Procedure Note Eric Larson MD - 11/11/2024 EXAM DESCRIPTION: XR CHEST 1 VIEW REASON FOR STUDY: Shortness of breath Pt c/o increasing swelling to bilateral lower extremities that isspreading to lower abd x approx 3 weeks. Pt currently in [facility] d/[facility] [...] Eric Larson M.D. AG: AG Report ID: [id number] Reading Location: [id number] Bravo Chino MD IMG XR PROCEDURES Manda l Result * Sepsis Lactate w/ Reflex (11/11/2024 5:10 PM PRINTING WORKER SUPERVISOR) Sepsis Lactate 1.6 0.7 - 2.0 mmol/L Comment:Testing performed by : [facility], [address] [place] [address]., [address] Blood 11/11/2024 5:10 PM PRINTING WORKER SUPERVISOR 11/11/2024 5:16 PM PRINTING WORKER SUPERVISOR Bravo Chino MD LAB BLOOD ORDERABLES F inal Result [facility] [address] [facility] Department [place] [address] * (ABNORMAL) eGFR (11/11/2024 5:10 PM PRINTING WORKER SUPERVISOR) eGFR 43(L) >=60 mL/min/1. 73 m2 Comment: [...] was last reviewed 2021. Testing performed by: [address] [address] Blood 11/11/2024 5:10 PM PRINTING WORKER SUPERVISOR 11/11/2024 5:16 PM PRINTING WORKER SUPERVISOR us Gloria Steen NP LAB BLOOD ORDERABLES Final Resul t [facility] [address] [facility] Department [place] [address] * (ABNORMAL) Differential, auto (11/11/2024 5:10 PM PRINTING WORKER SUPERVISOR) Pathologist [facility] Neutrophil abs 4.9 1.5 - 6.5 K/cumm Comment:Testing performed by : [address] [address] Imm gran abs 0.1 0.0 - 0.1 K/cumm DAYANA Comment:Testing performed by : [address] [address] Lymphocyte abs 0.7(L) 0.8 - 3.3 K/cumm DAYANA Comment:Testing performed by : [address] [address] Monocyte abs 0.9(H) 0.2 - 0.8 K/cumm [facility] Comment:Testing performed by : [address] [address] Eosinophil abs 0.2 0.0 - 0.5 K/cumm [facility] Comment:Testing performed by : [address], [place]., [address] Basophil abs 0.1 0.0 - 0.1 K/cumm [facility] Comment:Testing performed by : [address] [address] Neutrophil pct 71.4 % [facility] Comment: Interpretive Data Percent cell count reference ranges are not reported, since discordance with absolute values may lead to misinterpretation of CBC data. Current Interpretive Data was last revised on 2018. Testing performed by: [address] [address] Imm gran pct 1.0 % [facility] Comment: Interpretive Data Percent cell count reference ranges are not reported, since discordance with absolute values may lead to misinterpretation of CBC data. Current Interpretive Data was last revised on 2018. Testing performed by: [address] [address] Lymphocyte pct 10.8 % [facility] Comment: Interpretive Data Percent cell count reference ranges are not reported, since discordance with absolute values may lead to misinterpretation of CBC data. Current Interpretive Data was last revised on 2018. Testing performed by: [address] [address] Monocyte pct 13.0 % [facility] Comment: Interpretive Data Percent cell count reference ranges are not reported, since discordance with absolute values may lead to misinterpretation of CBC data. Current Interpretive Data was last revised on 2018. Testing performed by: [address] [address] Eosinophil pct 3.1 % [facility] Comment: Interpretive Data Percent cell count reference ranges are not reported, since discordance with absolute values may lead to misinterpretation of CBC data. Current Interpretive Data was last revised on 2018. Testing performed by: [facility], [address] [place] [address]., [address] Basophil pct 0.7 % DAYANA CARPIO Comment: Interpretive Data Percent cell count reference ranges are not reported, since discordance with absolute values may lead to misinterpretation of CBC data. Current Interpretive Data was last revised on 2018. Testing performed by: [facility], [address] [place] [address]., [id number] Blood 11/11/2024 5:10 PM PRINTING WORKER SUPERVISOR 11/11/2024 5:16 PM PRINTING WORKER SUPERVISOR us Gloria Steen NP LAB BLOOD ORDERABLES Final Resul t DAYANA CARPIO [address] [facility] Department [place] [address] * (ABNORMAL) Pro B-type natriuretic peptide (11/11/2024 5:10 PM PRINTING WORKER SUPERVISOR) NT-proBNP 5,728(H) <=300 pg/mL Comment: Interpretive Comments: [...] Last Revised Date: 2018. Testing performed by: [address] [id number] Blood 11/11/2024 5:10 PM PRINTING WORKER SUPERVISOR 11/11/2024 5:16 PM PRINTING WORKER SUPERVISOR us Bravo Chino MD LAB BLOOD ORDERABLES F inal Result DAYANA [address] [facility] Department [place] [address] * (ABNORMAL) CBC with auto differential (11/11/2024 5:10 PM PRINTING WORKER SUPERVISOR) WBC 6.9 3.8 - 9.9 K/cumm Comment:Testing performed by : [address] [address] Hgb 9.3(L) 11.9 - 15.5 g/dL DAYANA CARPIO Comment:Testing performed by : [address] [address] Hct 28.3(L) 35.6 - 45.5 % DAYANA ACRPIO Comment:Testing performed by : [address] [address] Plt 209 150 - 400 K/cumm DAYANA Comment:Testing performed by : [address] [address] MPV 10.3 9.1 - 12.3 fL DAYANA CARPIO Comment:Testing performed by : [address] [address] RBC 2.84(L) 3.90 - 5.20 M/cumm DAYANA CARPIO Comment:Testing performed by : [address] [address] MCV 99.6(H) 81.3 - 96.4 fL DAYANA CARPIO Comment:Testing performed by : [address] [address] MCH 32.7 27.1 - 33.3 pg DAYANA CARPIO Comment:Testing performed by : [address] [address] MCHC 32.9 32.3 - 35.7 g/dL DAYANA CARPIO Comment:Testing performed by : [address] [address] RDW CV 17.0(H) 11.1 - 14.9 % DAYANA CARPIO Comment:Testing performed by : [address] [address] RDW SD 59.6(H) 35.7 - 48.1 fL DAYANA CARPIO Comment:Testing performed by : [address] [address] NRBC abs 0.00 0.00 - 0.01 K/cumm DAYANA CARPIO Comment:Testing performed by : [address] [address] Blood 11/11/2024 5:10 PM PRINTING WORKER SUPERVISOR 11/11/2024 5:16 PM PRINTING WORKER SUPERVISOR us Bravo Chino MD LAB BLOOD ORDERABLES F inal Result DAYANA CARPIO [facility] Department [place] [address] * (ABNORMAL) Comprehensive metabolic panel (11/11/2024 5:10 PM PRINTING WORKER SUPERVISOR) Sodium 136 135 - 145 mmol/L Comment:Testing performed by : [address] [address] Potassium, pl 3.6 3.3 - 4.9 mmol/L DAYANA CARPIO Comment: Hemolyzed; Potassium value may be falsely elevated by as much as 1.0 mmol/L. Suggest redraw and reanalysis. Testing performed by: [address] [address] Chloride 93(L) 97 - 110 mmol/L DAYANA CARPIO Comment:Testing performed by : [address] [address] CO2 32 22 - 32 mmol/L DAYANA Comment:Testing performed by : [address] [address] Anion gap 11 2 - 15 mmol/L DAYANA Comment:Testing performed by : [address] [address] BUN 23 6 - 25 mg/dL DAYANA Comment:Testing performed by : [address] [address] Creatinine 1.32(H) 0.60 - 1.10 mg/dL [facility] Comment:Testing performed by : [address] [address] Glucose 170 70 - 199 mg/dL [facility] Comment: Interpretive Data Fasting glucose [...] was last revised 2022. Testing performed by: [address] [address] Calcium 9.6 8.5 - 10.3 mg/dL DAYANA Comment:Testing performed by : [address] [address] Bilirubin, total 1.9(H) 0.1 - 1.2 mg/dL [facility] Comment:Testing performed by : [address] [address] Protein, pl 6.3(L) 6.5 - 8.5 g/dL DAYANA Comment:Testing performed by : [address] [address] Albumin 3.6 3.5 - 5.0 g/dL DAYANA Comment:Testing performed by : [address] [address] Alk phos 337(H) 40 - 130 Units/L DAYANA Comment:Testing performed by : [facility], [address] [place] [address]., [address] ALT 30 7 - 45 Units/L DAYANA Comment:Testing performed by : [facility], [address] [place] [address]., [address] AST 73(H) 10 - 45 Units/L DAYANA Comment: Hemolyzed; result may be falsely elevated Testing performed by: [facility], [address] [place] [address], [address] Blood 11/11/2024 5:10 PM PRINTING WORKER SUPERVISOR 11/11/2024 5:16 PM PRINTING WORKER SUPERVISOR Result [facility] Bravo Chino MD LAB BLOOD ORDERABLES F inal Result [facility] [address] [facility] Department [place] [address] * Cardiology Document Scan (11/01/2024 10:08 AM PRINTING WORKER SUPERVISOR) Anatomical Region Laterality Modality Other Bridget Nicholson NP CV CARDIAC SERVICES PROCEDUR ES Final Result * Cardiology Document Scan (10/31/2024 9:21 AM PRINTING WORKER SUPERVISOR) Anatomical Region Laterality Modality Other Jc Schaffer MD CV CARDIAC SERVICES PROCEDURES F inal Result * POCT lipid panel (11/15/2023 2:47 PM PRINTING WORKER SUPERVISOR) Cholesterol, POC 146 mg/dL Comment:GLU = 90 HDL, POC 58 mg/dL Triglycerides, POC 87 mg/dL LDL Cholesterol POC 70 mg/dL Chol/HDL Ratio, POC 1.2 Non-HDL Cholesterol, POC 88 mg/dL Cholesterol Total, POC 146 mg/dL Capillary blood 11/15/2023 2 :47 PM PRINTING WORKER SUPERVISOR Bridget Nicholson NP POINT OF CARE TEST ORDERABLE S Final Result from Last 3 Months or Most Recently Relevant to Health Maintenance Insurance MEDICARE [employer] SENIOR SUPPLEMENT Advance Directives For more information, please contact: [phone] Documents on File Type Date Recorded Patient Button Attaching Machine Operator Expl anation ADVANCE DIRECTIVE 11/13/2024 3:42 PM Power of Recreation Attendant Supervisor-Medical * Full Code (Latest Code Status on File) Date Activated Date Inactivated Comments 11/12/2024 2:31 AM 11/20/2024 10:35 PM Care Teams Brand Activation Manager Relationship Specialty Start Date End Date Ghanshyam Ruiz NP [address] [place] [address] PCP - General Nurse Practitioner 09/03/24 Augustus Birch MD [address] [place] [address] Internal Medicine 04/17/19
[2025-01-25 16:23] VITALS: BMI 30.7
[2025-01-25 16:56] LABS: Glucose Point of Care 152 mg/dl (65-105)
[2025-01-25 17:20] VITALS: BP 138/59; PULSE 92; RESP 16; TEMP 36.7; O2SAT 99
--- NOTE | 2025-01-25 17:21 | PC.NURSE ---
Patient arrived to unit via ambulance on stretcher from [facility]. Patient required 3 assist to transfer from stretcher to bed. Patient educated on use of bed controls, call light, visiting hours, activation of rapid response and infection control precautions as well as general hospital policies. Patient voices understanding.
[2025-01-25 17:24] VITALS: PULSE 76; RESP 16; O2SAT 94
[2025-01-25] MEDS: PANTOPRAZOLE 40 MG TABLET PO (18:21)
--- NOTE | 2025-01-25 18:28 | PC.NURSE ---
Patient arrived with wounds from previous facilities. Wound on her coccyx is unstagable and measures 7cm x3cm x 0.5cm deep. Wound on patient's R heel measures 2cm x2.8cm x 0.4cm. Photos taken.
[2025-01-25 21:19] VITALS: PULSE 91
[2025-01-25] MEDS: carvediloL 6.25 MG TABLET PO (21:19)
[2025-01-25] MEDS: INSULIN GLARGINE (*BKC) 1,000 UNITS/10 ML VIAL 15 UNITS SUB-Q (21:19)
[2025-01-26] VITALS: BP 107/46; PULSE 91; RESP 18; TEMP 36.3
[2025-01-26 00:18] LABS: Glucose Point of Care 161 mg/dl (65-105)
[2025-01-26 07:41] LABS: Glucose Point of Care 59 mg/dl (65-105)
[2025-01-26] MEDS: GLUCOSE ORAL GEL 15 GM OF GLUCSE IN 37.5 GM TUBE PO (07:58)
[2025-01-26 08:00] VITALS: BP 117/54; PULSE 82; RESP 16; TEMP 36.8; O2SAT 95
[2025-01-26] MEDS: ASPIRIN 81 MG ENTERIC TABLET PO (08:01)
[2025-01-26 08:02] LABS: Glucose Point of Care 65 mg/dl (65-105)
[2025-01-26] MEDS: PANTOPRAZOLE 40 MG TABLET PO ×2 (08:02→17:17)
[2025-01-26] MEDS: ASCORBIC ACID 500 MG TABLET PO (08:02)
[2025-01-26] MEDS: CYANOCOBALAMIN 1,000 MCG TABLET 3000 MCG PO (08:02)
[2025-01-26 08:03] VITALS: PULSE 82
[2025-01-26] MEDS: PYRIDOXINE HCL 50 MG TABLET 100 MG PO (08:03)
[2025-01-26] MEDS: FOLIC ACID 0.4 MG TABLET 0.8 MG PO (08:03)
[2025-01-26] MEDS: carvediloL 6.25 MG TABLET PO ×2 (08:03→21:13)
[2025-01-26] MEDS: THERAPEUTIC MULTIVITAMINS/MINERALS TAB (*BKC) 1 TABLET PO (08:03)
[2025-01-26] MEDS: POTASSIUM CHLORIDE 10 MEQ ER TABLET PO (08:04)
[2025-01-26] MEDS: THIAMINE HCL 100 MG TABLET PO (08:04)
[2025-01-26] MEDS: FERROUS SULFATE 325 MG TABLET DR PO (08:04)
[2025-01-26] MEDS: BUMETANIDE 1 MG TABLET PO ×2 (08:05→18:58)
[2025-01-26] MEDS: MAGNESIUM OXIDE 400 MG TABLET PO (08:05)
[2025-01-26] MEDS: ATORVASTATIN 10 MG TABLET PO (08:05)
[2025-01-26] MEDS: calcitrioL 0.25 MCG CAPSULE PO (08:16)
[2025-01-26] MEDS: COLLAGENASE OINT 30 GM TUBE 1 APPLIC TOPICAL (08:44)
[2025-01-26] MEDS: EUCERIN CREAM 120 GM JAR 1 APPLIC TOPICAL (08:44)
[2025-01-26] MEDS: EMPAGLIFLOZIN 10 MG TABLET PO (08:45)
[2025-01-26 08:49] LABS: Glucose Point of Care 78 mg/dl (65-105)
--- NOTE | 2025-01-26 10:20 | P.HP_ITS ---
H&P: HPI History of Present Illness Date/Time: 01/26/25 10:20 Chief Complaint: Fall Narrative: Patient is a69 y/o F with PMH of cirrhosis, alcohol abuse, diastolic dysfunction, diabetes, chronic hyponatremia, CKD 3, chronic anemia, and chronic venous insufficiency with lipodermatosclerosis of the bilateral lower extremities. who was admitted from [facility] for [facility] services for continued rehabilitation She had a recent history of a closed medial tibial plateau fracture on 11/11/2024. She was originally placed in a knee immobilizer in full extension and was residing at a [facility] for rehab. She followed up with her orthopedist through [facility] on 12/26/2024, during this visit her knee immobilizer was discontinued and she was made weight-bearing as tolerated and instructed to continue outpatient physical therapy. She was then discharged home from [facility] on 01/07. Knee CT showed [place]ell near subarticular sclerosis underlying the significant portion of the medial tibial plateau without evidence of acute appearing fracture line or associated marrow edema which could represent either chronic osteochondral lesions/bone infarct or old fracture. She additionally rep orts a sacral pressure ulcer and a ulceration to her right heel which she has followed with wound care previously. She also followed with vascular outpatient on 12/26/2024 who attributed swelling to uncontrolled edema, chronic venous insufficiency, and her being minimally ambulatory versus peripheral artery disease. CT chest/abd/pelvis also showed large pleural effusion at which time she had a Thoracentesis performed. patient had overall improvement to acute symptoms however still had generalized weakness and physical and occupational therapy were recommending continued rehab she was then transported via EMS to [facility]. Review of Systems Review of Systems: All systems reviewed & are unremarkable except as noted in HPI and below PMFSH Past Medical History Medical History Alcoholic cirrhosis of liver Chronic venous insufficiency of lower extremity Stage 3a chronic kidney disease Shingles ANTHONY (obstructive sleep apnea) Osteoporosis Gram-negative bacteremia Anemia of chronic disease Ascites Obesity (BMI 30-39.9) Hyperlipidemia, unspecified Carotid artery disease Alcohol abuse Osteoarthritis Diastolic dysfunction ECHO 10/2023: normal LV systolic function, estimated EF of 60-65%, abnormal diastolic dysfunction. Left-sided carotid artery disease US 01/2021: 50 to 69% stenosis of the left ICA. Orthostatic hypotension on midodrine, chronic hypotension, previously caused syncope and frequent falls and subsequent fractures. Insulin dependent type 2 diabetes mellitus A1C 5.1% 08/2024 Hypertension Chronic hyponatremia Eczema Periprosthetic fracture of femur following total replacement of hip (01/2020) Non operative treatment. GERD (gastroesophageal reflux disease) Surgical History Surgical History Status post open reduction with internal fixation of fracture (05/30/21) ORIF of comminuted intra-articular fracture of the distal left femur, done at [facility]. History of hysterectomy (2005) Due to uterine fibroids and endometriosis. History of bilateral cataract extraction History of lumbar surgery (2005) L1-L3. History of right hip replacement (2005) Per Dr. Curiel in [place]. Family History Family History Father Heart attack Mother Diabetes mellitus COPD (chronic obstructive pulmonary disease) Hypertension Afib Sibling Amputation above knee Diabetes mellitus Father , At age 50 Acute myocardial infarction Sibling , At age 50 Pancreatic cancer Social History Social History Social History: The patient lives in her own home in [place]. She has been twice, her 1st and she has since her 2nd . She has no children. She moved to this area within the last couple of years from [place] to be close to her 3 remaining siblings. 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 She has recently retired.She smoked up to 2 packs of cigarettes a day before quitting in 2005. She drinks 2 mixed drinks a day, each containing a shot of vodka which equals out to about 1 L to 1.7 L of vodka a week. She denies illicit substance use. Surrogate decision maker: Miladys Sheehanmaggi, sister. Code status: Full code. Smoking packs per day: 2 Smoking cigarettes per day: 40.0 Years smoked: 30 Smoking pack-years: 60.00 Smoking status: Former smoker Tobacco type: cigarettes Smokeless tobacco user: chewing tobacco Second hand tobacco smoke exposure: No Smoking end date: 01/25/06 Alcohol intake: current Drinks per week: 14 Substance use: never Substance use type: does not use Do You Feel Safe in your Home?: Yes Lack of Transportation: No Lack of Food: Never True Current Housing: I Have Housing Concerned About Future Housing: No Difficulty Paying Gas/Electric Bills: No Difficulty Paying for Meds: No Currently Unemployed: No Education: Master's Degree or Higher Difficulty w/ Childcare or Family Care: No Living arrangements: alone Occupation/Education: retired Gender identity (if verbalized by the patient): Female Sexual Orientation (if Verbalized by the Patient): Straight or Heterosexual Spiritual care concerns: No Meds Home Medications and Allergies Home Medications ?Medication ?Instructions ?Recorded ?Confirmed ?Type fluticasone propionate 50 1 spray intranasal DAILY PRN 08/16/20 01/25/25 History mcg/actuation nasal allergies spray,suspension thiamine HCl (vitamin B1) 100 mg 100 mg PO QAM #30 tabs 08/18/20 01/25/25 Rx tablet (Vitamin B-1) gdtrijpyhkjs-Du-vlrc-minerals 1 tablet PO DAILY #30 tabs 01/16/21 01/25/25 Rx (Multiple Vitamin, Womens tablet) mecobalamin (vitamin B12) 1,000 3,000 mcg PO DAILY 05/13/21 01/25/25 History mcg chewable tablet pyridoxine (vitamin B6) 100 mg 100 mg PO DAILY 05/13/21 01/25/25 History tablet magnesium oxide 400 mg (241.3 mg 250 mg PO QAM 06/06/21 01/25/25 History magnesium) tablet blood sugar diagnostic #360 ea 10/31/22 01/25/25 Rx empagliflozin 10 mg tablet 10 mg PO DAILY #30 tabs 10/26/23 01/25/25 Rx (Jardiance) spironolactone 25 mg tablet 25 mg PO QAM #30 tabs 10/26/23 01/25/25 Rx alendronate 70 mg tablet 70 mg PO WEEKLY #12 tabs 12/12/23 01/25/25 Rx atorvastatin 10 mg tablet 10 mg PO QAM #90 tabs 06/10/24 01/25/25 Rx ascorbate calcium (vitamin C) 500 500 mg PO DAILY 06/20/24 01/25/25 History mg tablet aspirin 81 mg tablet,delayed 81 mg PO DAILY 06/20/24 01/25/25 History release folic acid 800 mcg tablet 0.8 mg PO DAILY 06/20/24 01/25/25 History calcitriol 0.25 mcg capsule 0.25 mcg PO 4XW #16 caps 08/23/24 01/25/25 Rx pen needle, diabetic 32 gauge x #360 ea 09/11/24 01/25/25 Rx 5/32 (BD Muriel 2nd Gen Pen Needle) blood-glucose sensor (Dexcom G7 #3 ea 09/13/24 01/25/25 Rx Sensor device) potassium chloride 10 mEq 10 meq PO DAILY #90 caps 09/30/24 01/25/25 Rx capsule,extended release insulin glargine 100 unit/mL (3 See Rx Instructions .Route 10/25/24 01/25/25 Rx mL) subcutaneous pen (Lantus .COMPLEX #15 mL Solostar U-100 Insulin) carvedilol 6.25 mg tablet 6.25 mg PO Q12H #60 tabs 12/31/24 01/25/25 Rx albuterol sulfate 2.5 mg/3 mL 2.5 mg inhalation Q8H PRN 01/16/25 01/25/25 History (0.083 %) solution for nebulization shortness of breath or wheezing ferrous sulfate 325 mg (65 mg 325 mg PO DAILY 01/16/25 01/25/25 History iron) tablet (Leonard-Time) insulin lispro 100 unit/mL 3 unit subcut TID 01/16/25 01/25/25 History subcutaneous pen (Humalog KwikPen (U-100) Insulin) lanolin alcohols-mineral 1 applic topical DAILY 01/16/25 01/25/25 History oil-w.petrolatum-ceresin topical cream loperamide 2 mg capsule 2 mg PO QID PRN loose stool 01/16/25 01/25/25 History (Anti-Diarrheal (loperamide)) midodrine 10 mg tablet 10 mg PO TID PRN dizziness or 01/16/25 01/25/25 History vertigo ondansetron 4 mg disintegrating 4 mg PO Q6H PRN nausea and vomiting 01/16/25 01/25/25 History tablet pantoprazole 40 mg tablet,delayed 40 mg PO BID 01/16/25 01/25/25 History release sennosides 8.6 mg tablet (senna) 8.6 mg PO DAILY PRN constipation 01/16/25 01/25/25 History bumetanide 1 mg tablet 1 mg PO DAILY #30 tabs 01/25/25 01/25/25 Rx Allergies Allergy/AdvReac Type Severity Reaction Status Date / Time codeine AdvReac Unknown Headache Verified 01/16/25 17:56 Vital Signs Vital Signs - 24 hr 01/25/25 17:20 01/25/25 17:24 01/25/25 21:19 Temperature 98.0 F Pulse Rate 92 76 91 Respiratory Rate 16 16 Blood Pressure 138/59 L Pulse Oximetry 99 94 Oxygen Delivery Room Air Room Air 01/26/25 00:00 01/26/25 08:00 01/26/25 08:03 Temperature 97.4 F L 98.2 F Pulse Rate 91 82 82 Respiratory Rate 18 16 Blood Pressure 107/46 L 117/54 L Pulse Oximetry 95 Oxygen Delivery Room Air Room Air Exam Const: General: comfortable and no acute distress Other: Pleasant female HENMT: Face/Nose/Sinus: Normal nares present Mouth: Yes moist mucous membranes Eyes: General: appearance normal, both eyes and all related structures Pupils: Equal, round and reactive pupils present Neck: Neck: supple and no JVD Resp: Effort & Inspection: normal respiratory effort Auscultation: wheezes scattered wheezes (Scant) Cardio: Rate: regular rate Rhythm: regular rhythm GI: GI Palp: Yes Soft to palpation Auscultation: normal bowel sounds Skin: General skin exam: normal color and no rashes or lesions noted Wounds: wounds noted Other: Pressure wound to left buttock and right heal with scant yellow sloth drainage to both sites Neuro: Speech: normal speech Motor exam (neuro): Abnormal motor strength present (Weakness to BLE patient reports wheelchair bound) bilateral lower extremity Sensory Exam: normal sensation Other: A&O x4 Extrem: Other: 1+ pitting edema from thighs down bilate rally, symmetric. Jt wraps in place to bilateral calves. Pressure ulcer to right heel, wound bed. Large ulceration to sacrum, possible tunneling. Psych: Mental Status: mental status grossly normal Affect: normal affect Other: Good insight and judgment, very pleasant H&P: Results Labs Labs: Short CBC 01/16/25 Range/Units 11:08 WBC 7.2 (4.5-10.0) K/mm3 Hgb 8.1 L (12.0-15.0) g/dL Hct 25.8 L (37.0-47.0) % Plt Count 225 D (150-375) k/mm3 BMP 01/16/25 11:08 Sodium 131 L Potassium 4.3 Chloride 100 Carbon Dioxide 22 BUN 28 H Creatinine 1.45 H Glucose 102 Calcium 8.0 L Liver Function 01/16/25 Range/Units 11:08 Total Bilirubin 0.9 (0.2-1.3) mg/dL AST 25 (14-36) U/L ALT 20 (6-35) U/L Alkaline Phosphatase 339 H (38-126) U/L Albumin 2.8 L (3.5-5.1) g/dL Urine 01/16/25 Range/Units 11:51 Urine Color Yellow (Yellow) Urine Appearance Clear (Clear) Urine pH 5.5 (5.0-9.0) Ur Specific [place] 1.011 (1.001-1.035) Urine Protein Negative (Negative) mg/dL Urine Glucose (UA) 1+ H (Negative) mg/dL Assessment and Plan Assessment and plan (1) Acute on chronic diastolic (congestive) heart failure: Code(s): I50.33 - Acute on chronic diastolic (congestive) heart failure Status: Acute Assessment and Plan: Patient with history diastolic heart failure recently hospitalized due to acute exacerbation 1+ edema to bilateral lower extremities noted, lungs mildly diminished otherwise clear patient on room air appears euvolemic. * continued Bumex 1 mg daily * continue with Jt wraps bilateral lower extremities * monitor fluid intake * daily weights * low-sodium diet (2) Fall from ground level: Code(s): W18.30XA - Fall on same level, unspecified, initial encounter Status: Acute Assessment and Plan: Trauma workup negative for acute fracture, imaging did redemonstrate the known right medial tibial plateau fracture that occurred in [place]ha of 2025. * PT/OT REHAB. * Analgesics p.r.n. (3) Pressure ulcer, heel, right, unstageable: Code(s): L89.610 - Pressure ulcer of right heel, unstageable Status: Acute Assessment and Plan: patient was seen by wound care nurses over at [facility] patient has pressure injury to right heel with yellow slough drainage will need follow-up outpatient at clinic * float heels * wound culture sent * pressure dressing * Santal (4) Pressure ulcer of sacral region: Qualifiers: Pressure injury stage: unspecified pressure injury stage Qualified Code(s): L89.159 - Pressure ulcer of sacral region, unspecified stage Code(s): L89.159 - Pressure ulcer of sacral region, unspecified stage Status: Acute Assessment and Plan: patient reports she is wheelchair-bound at home currently has pressure ulceration to her buttocks with scant yellowish sloth * wound culture sent * seat while in chair or wheelchair * offload by turns Q2 hours * follow-up with [facility] * Allevyn pad (5) Insulin dependent type 2 diabetes mellitus: Code(s): E11.9 - Type 2 diabetes mellitus without complications; 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 Status: Chronic Assessment and Plan: * Accu-Cheks a.cSarahi HS * sliding scale insulin * hold oral diabetic medications * resume patient's home long-acting * diabetic diet * Watch for hypoglycemia/hypoglycemic protocol ordered (6) Alcoholic cirrhosis of liver: Qualifiers: Ascites presence: without ascites Qualified Code(s): K70.30 - Alcoholic cirrhosis of liver without ascites Code(s): K70.30 - Alcoholic cirrhosis of liver without ascites Status: Chronic Assessment and Plan: patient with history of cirrhosis follows with GI outpatient monitor LFTs periodically or for ascites * LFTs within normal limits. * Recently followed with her GI provider on 12/31/2024, Owen THRASHER, and the patient's labetalol 100 mg b.i.d. was exchanged for carvedilol 6.25 b.i.d. in the hopes of delaying complications such as esophageal varices and ascites. * can follow up with GI outpatient (7) Chronic kidney disease, stage 3: Qualifiers: Chronic kidney disease stage 3 subtype: stage 3b (GFR 30-44) Qualified Code(s): N18.32 - Chronic kidney disease, stage 3b Code(s): N18.30 - Chronic kidney disease, stage 3 unspecified Status: Chronic Assessment and Plan: * CKD 3 * Avoid nephrotoxic drugs. * Monitor antihypertensive drug therapy. * Avoid NSAIDs. * Routine CMP monitoring GFR. * Monitor electrolytes especially potassium. (8) Chronic anemia: Code(s): D64.9 - Anemia, unspecified Status: Chronic Assessment and Plan: patient with chronic anemia secondary to cirrhosis * monitor H&H periodically * resume patient's ferrous sulfate Plan Code status: Full code per patient DVT prophylaxis: SCD's Stress ulcer prophylaxis: NA PT/OT notes: SWING bed Disposition: patient continues admission for swing bed rehabilitation plan is to continue to get patient back to her baseline at which time when she was home she was doing her own transfers from bed to wheelchair from chair to wheelchair. plan is to return home when strength returns. Quality VTE Prophylaxis VTE prophylaxis: mechanical ordered -Patient's previous records reviewed on admission -ER notes reviewed in detail on admission -discussed all findings and current treatment plan with patient/Family/POA -Consultations reviewed for recommendations -Patient's disposition for safe discharge discussed with high risk case manager Dictation performed by [employer] direct speech recognition software, therefore diesel engine fitter variants and typographical errors may occur. Hospitalist [facility] Advance Care Plan I have confirmed that the patient's Advanced Care Plan is present, code status is documented, or surrogate decision maker is listed in patient medical record.: Yes Medication Reconciliation I have utilized all available resources to obtain, update and review the patients current medications (includes all prescriptions, OTC, herbals, cannabis, and nutritional supplements).: Yes The patient is not eligible for med reconciliation; the patient is in a emergent medical situation where delaying treatment would jeopardize the patients health.: No
--- NOTE | 2025-01-26 11:05 | PC.NURSE ---
Wound care completed. Patient tolerated well.
[2025-01-26 11:47] LABS: Glucose Point of Care 136 mg/dl (65-105)
[2025-01-26 16:00] VITALS: BP 112/52; PULSE 83; RESP 16; TEMP 36.5; O2SAT 96
[2025-01-26 16:38] LABS: Glucose Point of Care 147 mg/dl (65-105)
--- NOTE | 2025-01-26 18:22 | PC.NURSE ---
Appliance Service Supervisor observed that patient had not eaten much and that she looked a little short of breath. Appliance Service Supervisor asked patient how she felt, and patient stated that she feels like she is full of fluid. VS stable. CHARTER SCHOOL EXECUTIVE DIRECTOR notified of change in condition and new orders obtained.
[2025-01-26] MEDS: IPRATROPIUM 0.5 MG/ALBUTEROL SULFATE 2.5 MG AMPUL.NEB 3 ML INHALATION (18:59)
[2025-01-26 19:40] VITALS: BP 114/53; PULSE 85; RESP 18; TEMP 36.6; O2SAT 93
[2025-01-26 21:13] VITALS: PULSE 96
[2025-01-26] MEDS: INSULIN GLARGINE (*BKC) 1,000 UNITS/10 ML VIAL 15 UNITS SUB-Q (21:16)
[2025-01-26 21:18] LABS: Glucose Point of Care 156 mg/dl (65-105)
[2025-01-27] VITALS: BP 120/59; PULSE 84; RESP 20; TEMP 36.7; O2SAT 94
[2025-01-27] MEDS: ACETAMINOPHEN 325 MG TABLET 650 MG PO (04:44)
[2025-01-27 07:53] LABS: Glucose Point of Care 78 mg/dl (65-105)
[2025-01-27 08:00] VITALS: BP 116/47; PULSE 82; RESP 20; TEMP 36.6; O2SAT 96
[2025-01-27] MEDS: EUCERIN CREAM 120 GM JAR 1 APPLIC TOPICAL (08:37)
[2025-01-27] MEDS: COLLAGENASE OINT 30 GM TUBE 1 APPLIC TOPICAL (08:37)
[2025-01-27] MEDS: ASPIRIN 81 MG ENTERIC TABLET PO (08:38)
[2025-01-27] MEDS: PYRIDOXINE HCL 50 MG TABLET 100 MG PO (08:38)
[2025-01-27] MEDS: POTASSIUM CHLORIDE 10 MEQ ER TABLET PO (08:38)
[2025-01-27] MEDS: THERAPEUTIC MULTIVITAMINS/MINERALS TAB (*BKC) 1 TABLET PO (08:38)
[2025-01-27] MEDS: MAGNESIUM OXIDE 400 MG TABLET PO (08:38)
[2025-01-27] MEDS: CYANOCOBALAMIN 1,000 MCG TABLET 3000 MCG PO (08:38)
[2025-01-27] MEDS: ASCORBIC ACID 500 MG TABLET PO (08:38)
[2025-01-27 08:39] VITALS: PULSE 70
[2025-01-27] MEDS: EMPAGLIFLOZIN 10 MG TABLET PO (08:39)
[2025-01-27] MEDS: PANTOPRAZOLE 40 MG TABLET PO ×2 (08:39→17:20)
[2025-01-27] MEDS: FERROUS SULFATE 325 MG TABLET DR PO (08:39)
[2025-01-27] MEDS: THIAMINE HCL 100 MG TABLET PO (08:39)
[2025-01-27] MEDS: BUMETANIDE 1 MG TABLET PO (08:39)
[2025-01-27] MEDS: ATORVASTATIN 10 MG TABLET PO (08:39)
[2025-01-27] MEDS: FOLIC ACID 0.4 MG TABLET 0.8 MG PO (08:39)
[2025-01-27] MEDS: carvediloL 6.25 MG TABLET PO ×2 (08:39→21:09)
[2025-01-27] MEDS: calcitrioL 0.25 MCG CAPSULE PO (08:42)
[2025-01-27 09:22] LABS: Hematocrit 26.7 % (35.0-42.0); Hemoglobin 8.3 g/dL (11.7-13.8); Mean Corpuscular HGB Conc 31.1 g/dL (32-36); Mean Corpuscular Hemoglobin 31.2 pg (27.0-31.0); Mean Corpuscular Volume 100.4 fL (78.0-102.0); Mean Platelet Volume 10.4 fl (9.2-11.8); Platelet Count Result 233 K/mm3 (150-420); Red Blood Count 2.66 M/mm3 (4.20-5.40); Red Cell Distribution Width 16.1 % (11.6-14.4); White Blood Count 6.7 K/mm3 (4.8-10.8)
[2025-01-27 09:43] LABS: Alanine Aminotransferase 14 U/L (14-59); Albumin Level 2.9 g/dL (3.4-5.0); Alkaline Phosphatase 375 U/L (46-116); Anion Gap 9 mmol/L (4-12); Aspartate Amino Transferase 21 U/L (15-37); Bilirubin,Total 1.2 mg/dL (0.00-1.00); Blood Urea Nitrogen 18 mg/dL (7-18); Calcium 8.6 mg/dL (8.5-10.1); Carbon Dioxide 29 mmol/L (21-32); Chloride 100 mmol/L (98-108); Estimated CRCL calculation 31 ml/min; Estimated Glomerular Filt Rate 30; Glucose 121 mg/dL (70-99); Osmolality Calculated 288 mOsm/kg (285-295); Potassium 3.8 mmol/L (3.5-5.1); Sodium 138 mmol/L (136-145); Total Protein 6.5 g/dL (6.4-8.2)
--- NOTE | 2025-01-27 10:49 | P.PNIM_ITS ---
Progress Note: A&P Assessment and Plan (1) Acute on chronic diastolic (congestive) heart failure: Code(s): I50.33 - Acute on chronic diastolic (congestive) heart failure Status: Acute Assessment and Plan: Patient with history diastolic heart failure recently hospitalized due to acute exacerbation 1+ edema to bilateral lower extremities noted, lungs mildly diminished otherwise clear patient on room air appears euvolemic. * continued Bumex 1 mg daily increased to 1mg BID due to increased fluid retention and SOB * removed Jt wraps bilateral lower extremities no further need causing increased nonpitting edema to bilateral thighs * elevate legs when at rest * monitor fluid intake * daily weights * low-sodium diet (2) Pleural effusion: Code(s): J90 - Pleural effusion, not elsewhere classified Status: Acute Assessment and Plan: patient reported feeling more short of breath and is though her lungs were filling with fluid again CT chest abdomen pelvis did show moderate-sized right and small left pleural effusion better prior to thoracentesis but increased post thoracentesis. but overall anasarca had improved and there was resolution of her prior ascites * switched her oral Bumex to 1 mg b.i.d. IV * resumed her spironolactone * incentive spirometer * serial labs daily monitor renal function while diuresing * if no improvement may need transfer for another thoracentesis but I think at this time she is stable and will monitor for improvement with increased diuretics (3) Fall from ground level: Code(s): W18.30XA - Fall on same level, unspecified, initial encounter Status: Acute Assessment and Plan: Trauma workup negative for acute fracture, imaging did redemonstrate the known right medial tibial plateau fracture that occurred in October of 2024. * PT/OT REHAB. * Analgesics p.r.n. (4) Pressure ulcer, heel, right, unstageable: Code(s): L89.610 - Pressure ulcer of right heel, unstageable Status: Acute Assessment and Plan: patient was seen by wound care nurses over at [facility] patient has pressure injury to right heel with yellow slough drainage will need follow-up outpatient at clinic * float heels * wound culture sent * pressure dressing * Santal * doan boots bilateral * (5) Pressure ulcer of sacral region: Qualifiers: Pressure injury stage: unspecified pressure injury stage Qualified Code(s): L89.159 - Pressure ulcer of sacral region, unspecified stage Code(s): L89.159 - Pressure ulcer of sacral region, unspecified stage Status: Acute Assessment and Plan: patient reports she is wheelchair-bound at home currently has pressure ulceration to her buttocks with scant yellowish sloth * wound culture sent * seat while in chair or wheelchair * offload by turns Q2 hours * follow-up with [facility] * Allevyn pad (6) Insulin dependent type 2 diabetes mellitus: Code(s): E11.9 - Type 2 diabetes mellitus without complications; 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 HS * sliding scale insulin * hold oral diabetic medications * resume patient's home long-acting * diabetic diet * Watch for hypoglycemia/hypoglycemic protocol ordered (7) Alcoholic cirrhosis of liver: Qualifiers: Ascites presence: without ascites Qualified Code(s): K70.30 - Alcoholic cirrhosis of liver without ascites Code(s): K70.30 - Alcoholic cirrhosis of liver without ascites Status: Chronic Assessment and Plan: patient with history of cirrhosis follows with GI outpatient monitor LFTs periodically or for ascites * LFTs within normal limits. * Recently followed with her GI provider on 12/31/2024, Owen THRASHER, and the patient's labetalol 100 mg b.i.d. was exchanged for carvedilol 6.25 b.i.d. in the hopes of delaying complications such as esophageal varices and ascites. * can follow up with GI outpatient (8) Chronic kidney disease, stage 3: Qualifiers: Chronic kidney disease stage 3 subtype: stage 3b (GFR 30-44) Qualified Code(s): N18.32 - Chronic kidney disease, stage 3b Code(s): N18.30 - Chronic kidney disease, stage 3 unspecified Status: Chronic Assessment and Plan: * CKD 3 * Avoid nephrotoxic drugs. * Monitor antihypertensive drug therapy. * Avoid NSAIDs. * Routine CMP monitoring GFR. * Monitor electrolytes especially potassium. (9) Chronic anemia: Code(s): D64.9 - Anemia, unspecified Status: Chronic Assessment and Plan: patient with chronic anemia secondary to cirrhosis, need to monitor her stool however she did have a positive occult stool at [place] was not seen by GI. CT abdomen today showed esophageal varices continue pantoprazole b.i.d. * monitor H&H periodically * resume patient's ferrous sulfate * patient's hemoglobin stable today at 8.4 * would recommend following up with GI outpatient she will also need to follow- up with hepatobiliary for her cirrhosis and portal venous hypertension Plan Code status: Full code per patient DVT prophylaxis: SCD's Stress ulcer prophylaxis: NA PT/OT notes: SWING bed Disposition: patient continues admission for swing bed rehabilitation plan is to continue to get patient back to her baseline at which time when she was home she was doing her own transfers from bed to wheelchair from chair to wheelchair. plan is to return home when strength returns. Time Spent With Patient Time with patient: 25 - 35 minutes Subjective Date/time seen: 01/27/25 10:49 Interval history: patient is a 69-year-old female who was [facility] for continued physical and occupational therapy. 01/27/2025: patient was reporting shortness a breath overnight reports she felt as though her fluid was filling up again they had been holding her spironolactone patient denied any chest pain, nausea, vomiting or difficulty urinating. upon exam she appeared mildly distended at the abdomen with 2+ nonpitting edema to BLE. patient previously had right thoracentesis performed at [facility] in noted small ascites. patient's vitals stable she was 97% on room air labs unchanged. Review of Systems Review of Systems: All systems reviewed & are unremarkable except as noted in HPI and below Exam Narrative: 2+ pitting edema, abdomen tight but nont neil. normoactive BS. heart and lungs fine. booty wound, see photo Const: General: comfortable and no acute distress Other: Pleasant female HENMT: Face/Nose/Sinus: Normal nares present Mouth: Yes moist mucous membranes Eyes: General: appearance normal, both eyes and all related structures Sclera: sclerae normal Pupils: Equal, round and reactive pupils present EOM: EOMs intact bilaterally Neck: Neck: supple and no JVD Resp: Effort & Inspection: normal respiratory effort Auscultation: clear to auscultation bilaterally and wheezes scattered wheezes (Scant) Cardio: Rate: regular rate Rhythm: regular rhythm Other: S1-S2 present without murmur, rub, ectopy GI: Auscultation: normal bowel sounds Other: Abdomen rounded and tight, distended, nontender. Normoactive bowel sounds in all quadrants. Skin: General skin exam: normal color, no rashes or lesions noted and wounds noted Wounds: wounds noted Other: Pressure wound to left buttock and right heal with scant yellow sloth drainage to both sites Neuro: Cranial nerves: Yes Equal, round and reactive pupils present Speech: normal speech Motor exam (neuro): Abnormal motor strength present (Weakness to BLE patient reports wheelchair bound) Sensory Exam: normal sensation Other: A&O x4 Extrem: Other: 2+ non pitting edema bilateral thighs sc ant pitting edema bilateral knee down after removal of JT wraps likely cause of tight non-pitting edema to bilateral thighs, bilaterally, symmetric. Pressure ulcer to right heel, wound bed. Large ulceration to sacrum, possible tunneling. Psych: Mental Status: mental status grossly normal Affect: normal affect Other: Good insight and judgment, very pleasant Objective Data Vital Signs Vital Signs: Vital Signs - 24 hr 01/26/25 16:00 01/26/25 19:40 01/26/25 19:40 Temperature 97.7 F 97.9 F Pulse Rate 83 85 85 Respiratory Rate 16 18 18 Blood Pressure 112/52 L 114/53 L Pulse Oximetry 96 93 93 Oxygen Delivery Room Air Room Air Room Air 01/26/25 19:40 01/26/25 21:13 01/27/25 00:00 Temperature 98.0 F Pulse Rate 85 96 84 Respiratory Rate 18 20 Blood Pressure 120/59 L Pulse Oximetry 93 94 Oxygen Delivery Room Air 01/27/25 08:00 01/27/25 08:39 Temperature 98 F Pulse Rate 82 70 Respiratory Rate 20 Blood Pressure 116/47 L Pulse Oximetry 96 Oxygen Delivery Room Air Intake/Output Intake/Output: Intake & Output 01/24/25 01/25/25 01/26/25 01/27/25 23:59 23:59 23:59 23:59 Intake Total 420 1830 750 Output Total 700 Balance 420 1130 750 Meds/Results Medications: Active Medications Generic Name Dose Route Start Last Admin Trade Name Freq PRN Reason Stop Dose Admin Acetaminophen 650 mg 01/25/25 17:26 01/27/25 04:44 Acetaminophen 325 Mg Tablet PO 650 mg Q6H PRN Administration Mild Pain (1-3) or Fever Hydrocodone Bitart/Acetaminophen 1 tab 01/27/25 10:32 Hydrocodone/Acetaminophen (*Crx) 5-325 Mg Tablet PO Q4H PRN Pain Rated 4-6 Albuterol 2.5 mg 01/25/25 17:20 Albuterol Sulfate Neb 2.5 Mg/3 Ml Inh INHALATION Q8H PRN shortness of breath or wheezing Alendronate Sodium 70 mg 01/28/25 06:30 Alendronate Sodium 70 Mg Tablet PO Tu@0630 [facility] Ascorbic Acid 500 mg 01/26/25 09:00 01/27/25 08:38 Ascorbic Acid 500 Mg Tablet PO 500 mg DAILY NEIL Administration Aspirin 81 mg 01/26/25 09:00 01/27/25 08:38 Aspirin 81 Mg Enteric Tablet PO 81 mg DAILY [facility] Administration Atorvastatin Calcium 10 mg 01/26/25 09:00 01/27/25 08:39 Atorvastatin 10 Mg Tablet PO 10 mg QAM [facility] Administration Bumetanide 1 mg 01/27/25 10:50 Bumetanide Inj 1 Mg/4 Ml Vial IV PUSH BID [facility] Calcitriol 0.25 mcg 01/26/25 09:00 01/27/25 08:42 Calcitriol 0.25 Mcg Capsule PO 0.25 mcg SuMoWeFr@0900 [facility] Administration Carvedilol 6.25 mg 01/25/25 21:00 01/27/25 08:39 Carvedilol 6.25 Mg Tablet PO 6.25 mg Q12H NEIL Administration Collagenase 1 applic 01/26/25 09:00 01/27/25 08:37 Collagenase Oint 30 Gm Tube TOPICAL 1 applic QAM NEIL Administration Cyanocobalamin 3,000 mcg 01/26/25 09:00 01/27/25 08:38 Cyanocobalamin 1,000 Mcg Tablet PO 3,000 mcg DAILY NEIL Administration Dextrose 12.5 gm 01/25/25 17:26 Dextrose 50% 25 Gm/50 Ml Syringe IV PUSH PRN PRN Hypoglycemia Protocol Empagliflozin 10 mg 01/26/25 09:00 01/27/25 08:39 Empagliflozin 10 Mg Tablet PO 10 mg DAILY NEIL Administration Ferrous Sulfate 325 mg 01/26/25 09:00 01/27/25 08:39 Ferrous Sulfate [address] PO 325 mg DAILY NEIL Administration Fluticasone Propionate 1 spray 01/25/25 17:20 Fluticasone Propionate 0.05% Na Spr 16 Gm Btl (*Bkc) NASAL DAILY PRN allergies Folic Acid 0.8 mg 01/26/25 09:00 01/27/25 08:39 Folic Acid 0.4 Mg Tablet PO 0.8 mg DAILY NEIL Administration Glucagon 1 mg 01/25/25 17:26 Glucagon For Inj 1 Mg Vial IM PRN PRN Hypoglycemia Protocol Glucose 15 gm 01/25/25 17:26 01/26/25 07:58 Glucose Oral Gel 15 Gm Of Glucse In 37.5 Gm Tube PO 15 gm PRN PRN Administration Hypoglycemia Protocol Dextrose 1,000 mls @ 100 mls/hr 01/25/25 17:26 Dextrose 5% 1,000 Ml IVPB PRN PRN Hypoglycemia Protocol Insulin Glargine 15 units 01/25/25 21:00 01/26/25 21:16 Insulin Glargine (*Bkc) 1,000 Units/10 Ml Vial SUB-Q 15 units HS NEIL Administration Insulin Human Lispro 2 - 5 units 01/26/25 08:00 01/27/25 07:52 Insulin Human Lispro (*Bkc) 1,000 Units/10 Ml Vial SUB-Q Not Given TIDWM [facility] Protocol Loperamide HCl 2 mg 01/25/25 17:20 Loperamide Hcl 2 Mg Capsule PO QID PRN loose stool Magnesium Oxide 400 mg 01/26/25 09:00 01/27/25 08:38 Magnesium Oxide 400 Mg Tablet PO 400 mg QAM [facility] Administration Midodrine 10 mg 01/25/25 17:32 Midodrine Hcl 2.5 Mg Tablet PO TID PRN dizziness or vertigo Multi-Ingred Cream/Lotion/Oil/Oint 1 applic 01/26/25 09:00 01/27/25 08:37 Eucerin Cream 120 Gm Jar TOPICAL 1 applic DAILY NEIL Administration Multivitamins/Calcium 1 tablet 01/26/25 09:00 01/27/25 08:38 Therapeutic Multivitamins/Minerals Tab (*Bkc) PO 1 tablet DAILY NEIL Administration Ondansetron HCl 4 mg 01/25/25 17:20 Ondansetron Hcl Odt 4 Mg Tablet PO Q6H PRN nausea and vomiting Pantoprazole Sodium 40 mg 01/25/25 17:35 01/27/25 08:39 Pantoprazole 40 Mg Tablet PO 40 mg BID NEIL Administration Potassium Chloride 10 meq 01/26/25 09:00 01/27/25 08:38 Potassium Chloride 10 Meq Er Tablet PO 10 meq DAILY NEIL Administration Pyridoxine HCl 100 mg 01/26/25 09:00 01/27/25 08:38 Pyridoxine Hcl 50 Mg Tablet PO 100 mg DAILY NEIL Administration Senna 8.6 mg 01/25/25 17:20 Sennosides 8.6 Mg Tablet PO DAILY PRN constipation Spironolactone 25 mg 01/27/25 10:40 Spironolactone 25 Mg Tablet PO QAM [facility] Thiamine HCl 100 mg 01/26/25 09:00 01/27/25 08:39 Thiamine Hcl 100 Mg Tablet PO 100 mg QAM NEIL Administration Radiology Results: ITS Impressions Chest/Abdomen/Pelvis CT 01/27/25 09:50 IMPRESSION: 1. Moderate-sized right and small left pleural effusion with associated compressive atelectasis in the dependent lungs. 2. New tree-in-bud opacities in the left upper lobe consistent with endobronchial spread of disease most likely pneumonia. 3. A couple groundglass nodules in the right upper lobe the largest measuring 1.1 cm. Recommend 6 month follow-up low-dose noncontrast chest CT. 4. Chronic small pericardial effusion with pericardial calcifications. 5. Cirrhosis with stigmata of secondary portal venous hypertension including gastroesophageal varices and splenomegaly. 6. Small sliding-type hiatal hernia. 7. Cholelithiasis and possible nonobstructing choledocholithiasis versus pancreatic parenchymal calcifications as sequela of chronic pancreatitis. 8. Improvement in prior body wall edema and resolution of prior ascites. Labs Labs: Laboratory Results - last 24 hr 01/26/25 01/26/25 01/26/25 11:42 16:32 21:16 WBC RBC Hgb Hct MCV MCH MCHC RDW Plt Count MPV Sodium Potassium Chloride Carbon Dioxide Anion Gap BUN Creatinine Estim Creat Clear Calc Estimated GFR Glucose POC Capillary Glucose 136 H 147 H 156 H Calculated Osmolality Calcium Total Bilirubin AST ALT Alkaline Phosphatase Total Protein Albumin 01/27/25 01/27/25 07:48 08:59 WBC 6.7 RBC 2.66 L Hgb 8.3 L Hct 26.7 L MCV 100.4 MCH 31.2 H MCHC 31.1 L RDW 16.1 H Plt Count 233 MPV 10.4 Sodium 138 Potassium 3.8 Chloride 100 Carbon Dioxide 29 Anion Gap 9 BUN 18 Creatinine 1.67 H Estim Creat Clear Calc 31 Estimated GFR 30 L Glucose 121 H POC Capillary Glucose 78 Calculated Osmolality 288 Calcium 8.6 Total Bilirubin 1.2 H AST 21 ALT 14 Alkaline Phosphatase 375 H Total Protein 6.5 Albumin 2.9 L Quality VTE Prophylaxis VTE prophylaxis: mechanical ordered -Patient's previous records reviewed on admission -ER notes reviewed in detail on admission -discussed all findings and current treatment plan with patient/Family/POA -Consultations reviewed for recommendations -Patient's disposition for safe discharge discussed with nurse case management Dictation performed by [employer] direct speech recognition software, therefore corporate treasury analyst variants and typographical errors may occur. Hospitalist MIPS Advance Care Plan I have confirmed that the patient's Advanced Care Plan is present, code status is documented, or surrogate decision maker is listed in patient medical record.: Yes Medication Reconciliation I have utilized all available resources to obtain, update and review the patients current medications (includes all prescriptions, OTC, herbals, cannabis, and nutritional supplements).: Yes The patient is not eligible for med reconciliation; the patient is in a emergent medical situation where delaying treatment would jeopardize the patients health.: No
[2025-01-27] MEDS: HYDROcodone/acetaminophen (*CRX) 5-325 MG TABLET 1 TAB PO ×2 (10:54→22:21)
[2025-01-27] MEDS: SPIRONOLACTONE 25 MG TABLET PO (10:54)
[2025-01-27] MEDS: BUMETANIDE INJ 1 MG/4 ML VIAL IV PUSH ×2 (10:54→17:20)
[2025-01-27 11:59] LABS: Glucose Point of Care 121 mg/dl (65-105)
[2025-01-27 16:00] VITALS: BP 113/46; PULSE 80; RESP 20; TEMP 36.1; O2SAT 98
[2025-01-27 16:57] LABS: Glucose Point of Care 135 mg/dl (65-105)
[2025-01-27] MEDS: ALBUTEROL SULFATE NEB 2.5 MG/3 ML INH INHALATION (18:24)
[2025-01-27 21:08] LABS: Glucose Point of Care 161 mg/dl (65-105)
[2025-01-27 21:09] VITALS: PULSE 74
[2025-01-27] MEDS: INSULIN GLARGINE (*BKC) 1,000 UNITS/10 ML VIAL 15 UNITS SUB-Q (21:16)
[2025-01-27 23:30] VITALS: TEMP 36.3
[2025-01-28] VITALS: BP 98/50; PULSE 76; RESP 20; TEMP 36.3; O2SAT 97
--- NOTE | 2025-01-28 00:16 | PC.NURSE ---
Pt resting quietly in bed and states the pain pill she took helped to relieve her leg pain. Pt rates her pain as a '3' on a 1-10 pain scale. Both legs remain elevated at this time.
--- NOTE | 2025-01-28 02:06 | PC.NURSE ---
Pt asleep and no signs of discomfort noted. Side rails up and call padilla within reach.
--- NOTE | 2025-01-28 04:11 | PC.NURSE ---
Pt up to the commode with the cynthia steady, belt and assist of one. Pt voided 200 ml of clear, daniel urine and returned to bed with the saraq steady, belt and assist of one. Pt positioned to comfort at this time.
[2025-01-28] MEDS: ALENDRONATE SODIUM 70 MG TABLET PO (06:28)
--- NOTE | 2025-01-28 06:30 | PC.NURSE ---
Pt weighed 88.1 kg. Pt given Fosamax 70 mg tablet PO as ordered.
--- NOTE | 2025-01-28 07:45 | PC.NURSE ---
Pt getting blood draw. States she thinks her sugar is low. Pt given orange juice and awaiting lab results.
[2025-01-28 07:58] LABS: Hemoglobin 8.6 g/dL (11.7-13.8); Mean Corpuscular HGB Conc 30.7 g/dL (32-36); Mean Corpuscular Hemoglobin 30.8 pg (27.0-31.0); Mean Corpuscular Volume 100.4 fL (78.0-102.0); Platelet Count Result 257 K/mm3 (150-420); Red Blood Count 2.79 M/mm3 (4.20-5.40); Red Cell Distribution Width 15.8 % (11.6-14.4); White Blood Count 6.9 K/mm3 (4.8-10.8)
[2025-01-28 08:00] VITALS: BP 106/48; PULSE 80; RESP 17; TEMP 36.2; O2SAT 97
--- NOTE | 2025-01-28 08:00 | PC.NURSE ---
Pt states she is feeling better. Currently eating breakfast. FSBS will be done after breakfast.
[2025-01-28 08:16] LABS: Alanine Aminotransferase 21 U/L (14-59); Albumin Level 3.1 g/dL (3.4-5.0); Alkaline Phosphatase 400 U/L (46-116); Anion Gap 8 mmol/L (4-12); Aspartate Amino Transferase 20 U/L (15-37); Bilirubin,Total 1.1 mg/dL (0.00-1.00); Blood Urea Nitrogen 21 mg/dL (7-18); Calcium 8.8 mg/dL (8.5-10.1); Carbon Dioxide 31 mmol/L (21-32); Chloride 98 mmol/L (98-108); Estimated CRCL calculation 30 ml/min; Estimated Glomerular Filt Rate 29; Glucose 55 mg/dL (70-99); Osmolality Calculated 285 mOsm/kg (285-295); Potassium 3.9 mmol/L (3.5-5.1); Sodium 137 mmol/L (136-145); Total Protein 6.8 g/dL (6.4-8.2)
[2025-01-28 08:26] LABS: Glucose Point of Care 83 mg/dl (65-105)
[2025-01-28] MEDS: BUMETANIDE INJ 1 MG/4 ML VIAL IV PUSH ×2 (09:02→16:41)
[2025-01-28] MEDS: PYRIDOXINE HCL 50 MG TABLET 100 MG PO (09:02)
[2025-01-28] MEDS: FERROUS SULFATE 325 MG TABLET DR PO (09:03)
[2025-01-28] MEDS: PANTOPRAZOLE 40 MG TABLET PO ×2 (09:03→16:42)
[2025-01-28] MEDS: THERAPEUTIC MULTIVITAMINS/MINERALS TAB (*BKC) 1 TABLET PO (09:03)
[2025-01-28] MEDS: ATORVASTATIN 10 MG TABLET PO (09:03)
[2025-01-28] MEDS: ASPIRIN 81 MG ENTERIC TABLET PO (09:03)
[2025-01-28] MEDS: CYANOCOBALAMIN 1,000 MCG TABLET 3000 MCG PO (09:03)
[2025-01-28] MEDS: POTASSIUM CHLORIDE 10 MEQ ER TABLET PO (09:03)
[2025-01-28] MEDS: MAGNESIUM OXIDE 400 MG TABLET PO (09:03)
[2025-01-28] MEDS: ASCORBIC ACID 500 MG TABLET PO (09:03)
[2025-01-28] MEDS: SPIRONOLACTONE 25 MG TABLET PO (09:03)
[2025-01-28] MEDS: FOLIC ACID 0.4 MG TABLET 0.8 MG PO (09:03)
[2025-01-28 09:04] VITALS: PULSE 80
[2025-01-28] MEDS: THIAMINE HCL 100 MG TABLET PO (09:04)
[2025-01-28] MEDS: carvediloL 6.25 MG TABLET PO ×2 (09:04→20:39)
[2025-01-28] MEDS: EMPAGLIFLOZIN 10 MG TABLET PO (09:04)
[2025-01-28] MEDS: COLLAGENASE OINT 30 GM TUBE 1 APPLIC TOPICAL (09:05)
[2025-01-28] MEDS: EUCERIN CREAM 120 GM JAR 1 APPLIC TOPICAL (09:13)
--- NOTE | 2025-01-28 09:19 | P.PNIM_ITS ---
Progress Note: A&P Assessment and Plan (1) Acute on chronic diastolic (congestive) heart failure: Code(s): I50.33 - Acute on chronic diastolic (congestive) heart failure Status: Acute Assessment and Plan: Patient with history diastolic heart failure recently hospitalized due to acute exacerbation 1+ edema to bilateral lower extremities noted, lungs mildly diminished otherwise clear patient on room air appears euvolemic. * continued Bumex 1 mg daily increased to 1mg BID IV due to increased fluid retention and SOB plan for 1 more day of IV diuretics Cr with bump baseline around 1.3-1.7 * this causes her to fluctuate between CKD stage 3A and stage 3B * creatinine has been higher in the due to more aggresive diuresis * Likely related to her CHF, previous HTN but not currently, DM, vascular disease, liver disease and need for chronic diuretic therapy * removed Jt wraps bilateral lower extremities no further need causing increased nonpitting edema to bilateral thighs * elevate legs when at rest * monitor fluid intake * daily weights * low-sodium diet (2) Pleural effusion: Code(s): J90 - Pleural effusion, not elsewhere classified Status: Acute Assessment and Plan: patient reported feeling more short of breath and is though her lungs were filling with fluid again CT chest abdomen pelvis did show moderate-sized right and small left pleural effusion better prior to thoracentesis but increased post thoracentesis. but overall anasarca had improved and there was resolution of her prior ascites * switched her oral Bumex to 1 mg b.i.d. IV * resumed her spironolactone * incentive spirometer * serial labs daily monitor renal function while diuresing * if no improvement may need transfer for another thoracentesis but I think at this time she is stable and will monitor for improvement with increased diuretics (3) Alcoholic cirrhosis of liver: Qualifiers: Ascites presence: without ascites Qualified Code(s): K70.30 - Alcoholic cirrhosis of liver without ascites Code(s): K70.30 - Alcoholic cirrhosis of liver without ascites Status: Chronic Assessment and Plan: patient with history of cirrhosis follows with GI outpatient monitor LFTs periodically or for ascites * LFTs within normal limits. * Recently followed with her GI provider on 12/31/2024, Owen THRASHER, and the patient's labetalol 100 mg b.i.d. was exchanged for carvedilol 6.25 b.i.d. in the hopes of delaying complications such as esophageal varices and ascites. * can follow up with GI outpatient (4) Portal venous hypertension: Code(s): K76.6 - Portal hypertension Status: Acute Assessment and Plan: CT ABD Showing cirrhosis with stigmata of secondary portal venous hypertension including gastroesophageal varices and splenomegaly * follow-up with GI likely will need follow-up with hepatobiliary * SEE ABOVE # 3 (5) Fall from ground level: Code(s): W18.30XA - Fall on same level, unspecified, initial encounter Status: Acute Assessment and Plan: Trauma workup negative for acute fracture, imaging did redemonstrate the known right medial tibial plateau fracture that occurred in October of 2024. * PT/OT REHAB. * Analgesics p.r.n. (6) Pressure ulcer, heel, right, unstageable: Code(s): L89.610 - Pressure ulcer of right heel, unstageable Status: Acute Assessment and Plan: patient was seen by wound care nurses over at [facility] patient has pressure injury to right heel with yellow slough drainage will need follow-up outpatient at clinic * float heels * wound culture sent * pressure dressing * Santal * doan boots bilateral * Wound with Pseudomonas and Strep B * Started on PO Levaquin 750 mg Q48Hr renal dosing (7) Pressure ulcer of sacral region: Qualifiers: Pressure injury stage: unspecified pressure injury stage Qualified Code(s): L89.159 - Pressure ulcer of sacral region, unspecified stage Code(s): L89.159 - Pressure ulcer of sacral region, unspecified stage Status: Acute Assessment and Plan: patient reports she is wheelchair-bound at home currently has pressure ulceration to her buttocks with scant yellowish sloth * wound culture sent * seat while in chair or wheelchair * offload by turns Q2 hours * follow-up with [facility]ound Care [facility] * Kami pad * Culture grew Staphylocccus aureus/Group B * Linezolid PO started on Levofloxacin PO as well for foot wound (8) Insulin dependent type 2 diabetes mellitus: Code(s): E11.9 - Type 2 diabetes mellitus without complications; Z79.4 - halfway (current) use of insulin Status: Chronic Assessment and Plan: * Accu-Lazaro dodge HS * sliding scale insulin * hold oral diabetic medications * resume patient's home long-acting * diabetic diet * Watch for hypoglycemia/hypoglycemic protocol ordered (9) Chronic kidney disease, stage 3: Qualifiers: Chronic kidney disease stage 3 subtype: stage 3b (GFR 30-44) Qualified Code(s): N18.32 - Chronic kidney disease, stage 3b Code(s): N18.30 - Chronic kidney disease, stage 3 unspecified Status: Chronic Assessment and Plan: * CKD 3 * Avoid nephrotoxic drugs. * Monitor antihypertensive drug therapy. * Avoid NSAIDs. * Routine CMP monitoring GFR. * Monitor electrolytes especially potassium. (10) Chronic anemia: Code(s): D64.9 - Anemia, unspecified Status: Chronic Assessment and Plan: patient with chronic anemia secondary to cirrhosis, need to monitor her stool however she did have a positive occult stool at [facility] was not seen by GI. CT abdomen today showed esophageal varices continue pantoprazole b.i.d. * monitor H&H periodically * resume patient's ferrous sulfate * patient's hemoglobin stable today at 8.4 * would recommend following up with GI outpatient she will also need to follow- up with hepatobiliary for her cirrhosis and portal venous hypertension Plan Code status: Full code per patient DVT prophylaxis: SCD's Stress ulcer prophylaxis: NA PT/OT notes: SWING bed Disposition: patient continues admission for swing bed rehabilitation plan is to continue to get patient back to her baseline at which time when she was home she was doing her own transfers from bed to wheelchair from chair to wheelchair. plan is to return home when strength returns. Time Spent With Patient Time with patient: 15 - 25 minutes Subjective Date/time seen: 01/28/25 09:19 Interval history: patient is a 69-year-old female who was admitted to [facility] for continued physical and occupational therapy. 01/28/2025: Patient reports SOB improved and ABD not as tight. Edema in upper thighs improved and less tight as well. Patient denied CP, N/V. Review of Systems Review of Systems: All systems reviewed & are unremarkable except as noted in HPI and below Exam Narrative: 2+ pitting edema, abdomen tight but nont neil. normoactive BS. heart and lungs fine. booty wound, see photo Const: General: comfortable and no acute distress Other: Pleasant female HENMT: Face/Nose/Sinus: Normal nares present Mouth: Yes moist mucous membranes Eyes: General: appearance normal, both eyes and all related structures Sclera: sclerae normal Pupils: Equal, round and reactive pupils present EOM: EOMs intact bilaterally Neck: Neck: supple and no JVD Resp: Effort & Inspection: normal respiratory effort Auscultation: clear to auscultation bilaterally and wheezes scattered wheezes (Scant) Cardio: Rate: regular rate Rhythm: regular rhythm Other: S1-S2 present without murmur, rub, ectopy GI: Auscultation: normal bowel sounds Other: Abdomen rounded and tight, distended, nontender. Normoactive bowel sounds in all quadrants. Skin: General skin exam: normal color, no rashes or lesions noted and wounds noted Wounds: wounds noted Other: Pressure wound to left buttock and right heal with scant yellow sloth drainage to both sites Neuro: Cranial nerves: Yes Equal, round and reactive pupils present Speech: normal speech Motor exam (neuro): 5/5 motor strength present throughout and Abnormal motor strength present (Weakness to BLE patient reports wheelchair bound) Sensory Exam: normal sensation Other: A&O x4 Extrem: Other: 2+ non pitting edema bilateral thighs sc ant pitting edema bilateral knee down after removal of JT wraps likely cause of tight non-pitting edema to bilateral thighs, bilaterally, symmetric. Pressure ulcer to right heel, wound bed. Large ulceration to sacrum, possible tunneling. Psych: Mental Status: mental status grossly normal Affect: normal affect Other: Good insight and judgment, very pleasant Objective Data Vital Signs Vital Signs: Vital Signs - 24 hr 01/27/25 16:00 01/27/25 21:09 01/27/25 23:30 Temperature 97 F L 97.4 F L Pulse Rate 80 74 Respiratory Rate 20 Blood Pressure 113/46 L Pulse Oximetry 98 Oxygen Delivery Room Air 01/28/25 00:00 01/28/25 09:04 Temperature 97.4 F L Pulse Rate 76 80 Respiratory Rate 20 Blood Pressure 98/50 L Pulse Oximetry 97 Oxygen Delivery Room Air Intake/Output Intake/Output: Intake & Output 01/25/25 01/26/25 01/27/25 01/28/25 23:59 23:59 23:59 23:59 Intake Total 420 1830 2510 150 Output Total 700 200 Balance 420 1130 2510 -50 Meds/Results Medications: Active Medications Generic Name Dose Route Start Last Admin Trade Name Freq PRN Reason Stop Dose Admin Acetaminophen 650 mg 01/25/25 17:26 01/27/25 04:44 Acetaminophen 325 Mg Tablet PO 650 mg Q6H PRN Administration Mild Pain (1-3) or Fever Hydrocodone Bitart/Acetaminophen 1 tab 01/27/25 10:32 01/27/25 22:21 Hydrocodone/Acetaminophen (*Crx) 5-325 Mg Tablet PO 1 tab Q4H PRN Administration Pain Rated 4-6 Albuterol 2.5 mg 01/25/25 17:20 01/27/25 18:24 Albuterol Sulfate Neb 2.5 Mg/3 Ml Inh INHALATION 2.5 mg Q8H PRN Administration shortness of breath or wheezing Alendronate Sodium 70 mg 01/28/25 06:30 01/28/25 06:28 Alendronate Sodium 70 Mg Tablet PO 70 mg [id number]@0630 NEIL Administration Ascorbic Acid 500 mg 01/26/25 09:00 01/28/25 09:03 Ascorbic Acid 500 Mg Tablet PO 500 mg DAILY NEIL Administration Aspirin 81 mg 01/26/25 09:00 01/28/25 09:03 Aspirin 81 Mg Enteric Tablet PO 81 mg DAILY NEIL Administration Atorvastatin Calcium 10 mg 01/26/25 09:00 01/28/25 09:03 Atorvastatin 10 Mg Tablet PO 10 mg QAM NEIL Administration Bumetanide 1 mg 01/27/25 10:50 01/28/25 09:02 Bumetanide Inj 1 Mg/4 Ml Vial IV PUSH 1 mg BID NEIL Administration Calcitriol 0.25 mcg 01/26/25 09:00 01/27/25 08:42 Calcitriol 0.25 Mcg Capsule PO 0.25 mcg [id number] NEIL Administration Carvedilol 6.25 mg 01/25/25 21:00 01/28/25 09:04 Carvedilol 6.25 Mg Tablet PO 6.25 mg Q12H NEIL Administration Collagenase 1 applic 01/26/25 09:00 01/28/25 09:05 Collagenase Oint 30 Gm Tube TOPICAL 1 applic QAM NEIL Administration Cyanocobalamin 3,000 mcg 01/26/25 09:00 01/28/25 09:03 Cyanocobalamin 1,000 Mcg Tablet PO 3,000 mcg DAILY NEIL Administration Dextrose 12.5 gm 01/25/25 17:26 Dextrose 50% 25 Gm/50 Ml Syringe IV PUSH PRN PRN Hypoglycemia Protocol Empagliflozin 10 mg 01/26/25 09:00 01/28/25 09:04 Empagliflozin 10 Mg Tablet PO 10 mg DAILY NEIL Administration Ferrous Sulfate 325 mg 01/26/25 09:00 01/28/25 09:03 Ferrous Sulfate [address] PO 325 mg DAILY NEIL Administration Fluticasone Propionate 1 spray 01/25/25 17:20 Fluticasone Propionate 0.05% Na Spr 16 Gm Btl (*Bkc) NASAL DAILY PRN allergies Folic Acid 0.8 mg 01/26/25 09:00 01/28/25 09:03 Folic Acid 0.4 Mg Tablet PO 0.8 mg DAILY NEIL Administration Glucagon 1 mg 01/25/25 17:26 Glucagon For Inj 1 Mg Vial IM PRN PRN Hypoglycemia Protocol Glucose 15 gm 01/25/25 17:26 01/26/25 07:58 Glucose Oral Gel 15 Gm Of Glucse In 37.5 Gm Tube PO 15 gm PRN PRN Administration Hypoglycemia Protocol Dextrose 1,000 mls @ 100 mls/hr 01/25/25 17:26 Dextrose 5% 1,000 Ml IVPB PRN PRN Hypoglycemia Protocol Insulin Glargine 15 units 01/25/25 21:00 01/27/25 21:16 Insulin Glargine (*Bkc) 1,000 Units/10 Ml Vial SUB-Q 15 units HS NEIL Administration Insulin Human Lispro 2 - 5 units 01/26/25 08:00 01/28/25 08:59 Insulin Human Lispro (*Bkc) 1,000 Units/10 Ml Vial SUB-Q Not Given TIDWM NEIL Protocol Loperamide HCl 2 mg 01/25/25 17:20 Loperamide Hcl 2 Mg Capsule PO QID PRN loose stool Magnesium Oxide 400 mg 01/26/25 09:00 01/28/25 09:03 Magnesium Oxide 400 Mg Tablet PO 400 mg QAM NEIL Administration Midodrine 10 mg 01/25/25 17:32 Midodrine Hcl 2.5 Mg Tablet PO TID PRN dizziness or vertigo Multi-Ingred Cream/Lotion/Oil/Oint 1 applic 01/26/25 09:00 01/28/25 09:13 Eucerin Cream 120 Gm Jar TOPICAL 1 applic DAILY NEIL Administration Multivitamins/Calcium 1 tablet 01/26/25 09:00 01/28/25 09:03 Therapeutic Multivitamins/Minerals Tab (*Bkc) PO 1 tablet DAILY NEIL Administration Ondansetron HCl 4 mg 01/25/25 17:20 Ondansetron Hcl Odt 4 Mg Tablet PO Q6H PRN nausea and vomiting Pantoprazole Sodium 40 mg 01/25/25 17:35 01/28/25 09:03 Pantoprazole 40 Mg Tablet PO 40 mg BID NEIL Administration Potassium Chloride 10 meq 01/26/25 09:00 01/28/25 09:03 Potassium Chloride 10 Meq Er Tablet PO 10 meq DAILY NEIL Administration Pyridoxine HCl 100 mg 01/26/25 09:00 01/28/25 09:02 Pyridoxine Hcl 50 Mg Tablet PO 100 mg DAILY NEIL Administration Senna 8.6 mg 01/25/25 17:20 Sennosides 8.6 Mg Tablet PO DAILY PRN constipation Spironolactone 25 mg 01/27/25 10:40 01/28/25 09:03 Spironolactone 25 Mg Tablet PO 25 mg QAM NEIL Administration Thiamine HCl 100 mg 01/26/25 09:00 01/28/25 09:04 Thiamine Hcl 100 Mg Tablet PO 100 mg QAM NEIL Administration Radiology Results: ITS Impressions Chest/Abdomen/Pelvis CT 01/27/25 09:50 IMPRESSION: 1. Moderate-sized right and small left pleural effusion with associated compressive atelectasis in the dependent lungs. 2. New tree-in-bud opacities in the left upper lobe consistent with endobronchial spread of disease most likely pneumonia. 3. A couple groundglass nodules in the right upper lobe the largest measuring 1.1 cm. Recommend 6 month follow-up low-dose noncontrast chest CT. 4. Chronic small pericardial effusion with pericardial calcifications. 5. Cirrhosis with stigmata of secondary portal venous hypertension including gastroesophageal varices and splenomegaly. 6. Small sliding-type hiatal hernia. 7. Cholelithiasis and possible nonobstructing choledocholithiasis versus pancreatic parenchymal calcifications as sequela of chronic pancreatitis. 8. Improvement in prior body wall edema and resolution of prior ascites. Labs Labs: Laboratory Results - last 24 hr 01/27/25 01/27/25 01/27/25 08:59 11:50 16:51 WBC 6.7 RBC 2.66 L Hgb 8.3 L Hct 26.7 L MCV 100.4 MCH 31.2 H MCHC 31.1 L RDW 16.1 H Plt Count 233 MPV 10.4 Sodium 138 Potassium 3.8 Chloride 100 Carbon Dioxide 29 Anion Gap 9 BUN 18 Creatinine 1.67 H Estim Creat Clear Calc 31 Estimated GFR 30 L Glucose 121 H POC Capillary Glucose 121 H 135 H Calculated Osmolality 288 Calcium 8.6 Total Bilirubin 1.2 H AST 21 ALT 14 Alkaline Phosphatase 375 H Total Protein 6.5 Albumin 2.9 L 01/27/25 01/28/25 01/28/25 21:07 07:41 08:25 WBC 6.9 RBC 2.79 L Hgb 8.6 L Hct 28.0 L MCV 100.4 MCH 30.8 MCHC 30.7 L RDW 15.8 H Plt Count 257 MPV 10.0 Sodium 137 Potassium 3.9 Chloride 98 Carbon Dioxide 31 Anion Gap 8 BUN 21 H Creatinine 1.74 H Estim Creat Clear Calc 30 Estimated GFR 29 L Glucose 55 L POC Capillary Glucose 161 H 83 Calculated Osmolality 285 Calcium 8.8 Total Bilirubin 1.1 H AST 20 ALT 21 Alkaline Phosphatase 400 H Total Protein 6.8 Albumin 3.1 L Quality VTE Prophylaxis VTE prophylaxis: mechanical ordered -Patient's previous records reviewed on admission -ER notes reviewed in detail on admission -discussed all findings and current treatment plan with patient/Family/POA -Consultations reviewed for recommendations -Patient's disposition for safe discharge discussed with case operator Dictation performed by [employer] direct speech recognition software, therefore treating and pumping supervisor variants and typographical errors may occur. Hospitalist MIPS Advance Care Plan I have confirmed that the patient's Advanced Care Plan is present, code status is documented, or surrogate decision maker is listed in patient medical record.: Yes Medication Reconciliation I have utilized all available resources to obtain, update and review the patients current medications (includes all prescriptions, OTC, herbals, cannabis, and nutritional supplements).: Yes The patient is not eligible for med reconciliation; the patient is in a emergent medical situation where delaying treatment would jeopardize the patients health.: No
[2025-01-28] MEDS: LINEZOLID 600 MG TABLET PO ×2 (11:31→20:40)
[2025-01-28 11:45] LABS: Glucose Point of Care 126 mg/dl (65-105)
[2025-01-28] MEDS: levoFLOXacin TAB 500 MG, levoFLOXacin TAB 250 MG 750 MG PO (14:50)
[2025-01-28] MEDS: HYDROcodone/acetaminophen (*CRX) 5-325 MG TABLET 1 TAB PO (14:55)
[2025-01-28 16:00] VITALS: BP 114/53; PULSE 80; RESP 20; TEMP 36.4; O2SAT 97
[2025-01-28 16:46] LABS: Glucose Point of Care 124 mg/dl (65-105)
[2025-01-28 20:39] VITALS: PULSE 80
[2025-01-28] MEDS: INSULIN GLARGINE (*BKC) 1,000 UNITS/10 ML VIAL 15 UNITS SUB-Q (20:40)
[2025-01-28 21:03] LABS: Glucose Point of Care 146 mg/dl (65-105)
[2025-01-29] VITALS: BP 103/53; PULSE 74; RESP 18; TEMP 36.4; O2SAT 98
[2025-01-29 05:46] LABS: Hematocrit 24.8 % (35.0-42.0); Hemoglobin 7.9 g/dL (11.7-13.8); Mean Corpuscular HGB Conc 31.9 g/dL (32-36); Mean Corpuscular Hemoglobin 31.6 pg (27.0-31.0); Mean Corpuscular Volume 99.2 fL (78.0-102.0); Mean Platelet Volume 9.9 fl (9.2-11.8); Platelet Count Result 219 K/mm3 (150-420); Red Cell Distribution Width 15.8 % (11.6-14.4); White Blood Count 6.4 K/mm3 (4.8-10.8)
[2025-01-29 06:06] LABS: Alanine Aminotransferase 15 U/L (14-59); Albumin Level 2.9 g/dL (3.4-5.0); Alkaline Phosphatase 372 U/L (46-116); Anion Gap 7 mmol/L (4-12); Aspartate Amino Transferase 17 U/L (15-37); Blood Urea Nitrogen 21 mg/dL (7-18); Calcium 8.8 mg/dL (8.5-10.1); Carbon Dioxide 29 mmol/L (21-32); Chloride 98 mmol/L (98-108); Estimated CRCL calculation 31 ml/min; Estimated Glomerular Filt Rate 30; Glucose 65 mg/dL (70-99); Osmolality Calculated 279 mOsm/kg (285-295); Potassium 3.9 mmol/L (3.5-5.1); Sodium 134 mmol/L (136-145); Total Protein 6.4 g/dL (6.4-8.2)
--- NOTE | 2025-01-29 06:15 | PC.NURSE ---
Pt's blood glucose was 65 and Hgb was 7.9. Latrice Borrero NP, notified and hypoglycemic protocol started.
[2025-01-29 06:18] LABS: Glucose Point of Care 61 mg/dl (65-105)
[2025-01-29 06:44] LABS: Glucose Point of Care 73 mg/dl (65-105)
[2025-01-29 07:36] LABS: Glucose Point of Care 89 mg/dl (65-105)
[2025-01-29 08:00] VITALS: BP 114/51; PULSE 83; RESP 18; TEMP 36.2; O2SAT 97
--- NOTE | 2025-01-29 08:48 | PC.NURSE ---
SENIOR STORAGE ADMINISTRATOR made aware of [facility] Dietitian Eval and Assessment. New order received per SENIOR STORAGE ADMINISTRATOR to Regular diet with supplement at Breakfast.
[2025-01-29] MEDS: BUMETANIDE INJ 1 MG/4 ML VIAL IV PUSH ×2 (09:37→17:39)
[2025-01-29] MEDS: CYANOCOBALAMIN 1,000 MCG TABLET 3000 MCG PO (09:38)
[2025-01-29] MEDS: SPIRONOLACTONE 25 MG TABLET PO (09:38)
[2025-01-29] MEDS: ASCORBIC ACID 500 MG TABLET PO (09:38)
[2025-01-29] MEDS: MAGNESIUM OXIDE 400 MG TABLET PO (09:38)
[2025-01-29] MEDS: LINEZOLID 600 MG TABLET PO ×2 (09:38→21:44)
[2025-01-29] MEDS: THERAPEUTIC MULTIVITAMINS/MINERALS TAB (*BKC) 1 TABLET PO (09:38)
[2025-01-29] MEDS: HYDROcodone/acetaminophen (*CRX) 5-325 MG TABLET 1 TAB PO ×2 (09:38→21:43)
[2025-01-29] MEDS: THIAMINE HCL 100 MG TABLET PO (09:38)
[2025-01-29 09:39] VITALS: PULSE 89
[2025-01-29] MEDS: POTASSIUM CHLORIDE 10 MEQ ER TABLET PO (09:39)
[2025-01-29] MEDS: ASPIRIN 81 MG ENTERIC TABLET PO (09:39)
[2025-01-29] MEDS: FERROUS SULFATE 325 MG TABLET DR PO (09:39)
[2025-01-29] MEDS: carvediloL 6.25 MG TABLET PO ×2 (09:39→21:44)
[2025-01-29] MEDS: ATORVASTATIN 10 MG TABLET PO (09:39)
[2025-01-29] MEDS: PYRIDOXINE HCL 50 MG TABLET 100 MG PO (09:39)
[2025-01-29] MEDS: PANTOPRAZOLE 40 MG TABLET PO ×2 (09:39→17:39)
[2025-01-29] MEDS: EMPAGLIFLOZIN 10 MG TABLET PO (09:39)
[2025-01-29] MEDS: FOLIC ACID 0.4 MG TABLET 0.8 MG PO (09:39)
[2025-01-29] MEDS: EUCERIN CREAM 120 GM JAR 1 APPLIC TOPICAL (09:40)
[2025-01-29] MEDS: COLLAGENASE OINT 30 GM TUBE 1 APPLIC TOPICAL (09:41)
[2025-01-29] MEDS: calcitrioL 0.25 MCG CAPSULE PO (09:42)
--- NOTE | 2025-01-29 09:44 | P.PNCROSS_ITS ---
Event Note Event Note Event Note: Patient's blood sugar was 61 this morning around 6:00 a.m. patient was given cr ackers, peanut butter, pudding and she responded well to treatment. Post blood sugar was 73. Order placed to give patient a snack before bed. She was noted to be low in the morning with a previous hypoglycemic event on 01/26/2025 with a blood sugar 59. Patient is on her home regimen of Lantus 15 units. Order changed to 12 units for tonight. We will continue to monitor.
[2025-01-29 12:00] LABS: Glucose Point of Care 102 mg/dl (65-105)
[2025-01-29 16:00] VITALS: BP 108/52; PULSE 84; RESP 17; TEMP 36.6; O2SAT 96
[2025-01-29 17:03] LABS: Glucose Point of Care 121 mg/dl (65-105)
[2025-01-29 21:44] VITALS: PULSE 80
[2025-01-29] MEDS: INSULIN GLARGINE (*BKC) 1,000 UNITS/10 ML VIAL 12 UNITS SUB-Q (21:44)
[2025-01-29 21:49] LABS: Glucose Point of Care 155 mg/dl (65-105)
[2025-01-30] VITALS: BP 102/52; PULSE 74; RESP 17; TEMP 36.3; O2SAT 97
[2025-01-30] MEDS: HYDROcodone/acetaminophen (*CRX) 5-325 MG TABLET 1 TAB PO ×2 (05:06→13:28)
[2025-01-30 05:28] LABS: Hematocrit 24.2 % (35.0-42.0); Hemoglobin 7.7 g/dL (11.7-13.8); Mean Corpuscular HGB Conc 31.8 g/dL (32-36); Mean Corpuscular Hemoglobin 31.6 pg (27.0-31.0); Mean Corpuscular Volume 99.2 fL (78.0-102.0); Mean Platelet Volume 10.3 fl (9.2-11.8); Platelet Count Result 216 K/mm3 (150-420); Red Blood Count 2.44 M/mm3 (4.20-5.40); Red Cell Distribution Width 15.8 % (11.6-14.4)
[2025-01-30 05:45] LABS: Alanine Aminotransferase 19 U/L (14-59); Albumin Level 2.9 g/dL (3.4-5.0); Alkaline Phosphatase 358 U/L (46-116); Anion Gap 5 mmol/L (4-12); Aspartate Amino Transferase 16 U/L (15-37); Blood Urea Nitrogen 22 mg/dL (7-18); Calcium 8.8 mg/dL (8.5-10.1); Carbon Dioxide 30 mmol/L (21-32); Chloride 99 mmol/L (98-108); Estimated CRCL calculation 28 ml/min; Estimated Glomerular Filt Rate 27; Glucose 89 mg/dL (70-99); Osmolality Calculated 280 mOsm/kg (285-295); Potassium 3.9 mmol/L (3.5-5.1); Sodium 134 mmol/L (136-145); Total Protein 6.4 g/dL (6.4-8.2)
[2025-01-30 08:00] VITALS: BP 120/84; PULSE 73; RESP 18; TEMP 36.2; O2SAT 97
[2025-01-30 08:08] LABS: Glucose Point of Care 73 mg/dl (65-105)
--- NOTE | 2025-01-30 08:30 | P.PNCROSS_ITS ---
Event Note Event Note Event Note: Blood sugars ranging 73-155. No hypoglycemic events overnight. We will decrea se her Lantus to 9 units tonight.
--- NOTE | 2025-01-30 08:30 | PM.EVENT ---
Event Note Event Note Event Note: Blood sugars ranging 73-155. No hypoglycemic events overnight. We will decrease her Lantus to 9 units tonight.
[2025-01-30] MEDS: BUMETANIDE INJ 1 MG/4 ML VIAL IV PUSH ×2 (09:38→17:32)
[2025-01-30] MEDS: COLLAGENASE OINT 30 GM TUBE 1 APPLIC TOPICAL (09:38)
[2025-01-30] MEDS: CYANOCOBALAMIN 1,000 MCG TABLET 3000 MCG PO (09:38)
[2025-01-30] MEDS: EUCERIN CREAM 120 GM JAR 1 APPLIC TOPICAL (09:38)
[2025-01-30 09:39] VITALS: PULSE 76
[2025-01-30] MEDS: carvediloL 6.25 MG TABLET PO ×2 (09:39→21:10)
[2025-01-30] MEDS: PANTOPRAZOLE 40 MG TABLET PO ×2 (09:39→17:33)
[2025-01-30] MEDS: FOLIC ACID 0.4 MG TABLET 0.8 MG PO (09:39)
[2025-01-30] MEDS: LINEZOLID 600 MG TABLET PO ×2 (09:39→21:10)
[2025-01-30] MEDS: THIAMINE HCL 100 MG TABLET PO (09:39)
[2025-01-30] MEDS: PYRIDOXINE HCL 50 MG TABLET 100 MG PO (09:39)
[2025-01-30] MEDS: ASCORBIC ACID 500 MG TABLET PO (09:39)
[2025-01-30] MEDS: EMPAGLIFLOZIN 10 MG TABLET PO (09:39)
[2025-01-30] MEDS: MAGNESIUM OXIDE 400 MG TABLET PO (09:39)
[2025-01-30] MEDS: FERROUS SULFATE 325 MG TABLET DR PO (09:39)
[2025-01-30] MEDS: THERAPEUTIC MULTIVITAMINS/MINERALS TAB (*BKC) 1 TABLET PO (09:39)
[2025-01-30] MEDS: SPIRONOLACTONE 25 MG TABLET PO (09:39)
[2025-01-30] MEDS: POTASSIUM CHLORIDE 10 MEQ ER TABLET PO (09:39)
[2025-01-30] MEDS: ATORVASTATIN 10 MG TABLET PO (09:39)
[2025-01-30] MEDS: ASPIRIN 81 MG ENTERIC TABLET PO (09:39)
[2025-01-30 11:58] LABS: Glucose Point of Care 117 mg/dl (65-105)
[2025-01-30] MEDS: levoFLOXacin TAB 500 MG, levoFLOXacin TAB 250 MG 750 MG PO (13:28)
[2025-01-30 16:00] VITALS: BP 97/45; PULSE 74; RESP 20; TEMP 36.2; O2SAT 96
[2025-01-30 17:00] LABS: Glucose Point of Care 125 mg/dl (65-105)
[2025-01-30] MEDS: ALBUMIN HUMAN 25% 25 GM/100 ML 100 ML IVPB ×2 (18:33→23:49)
[2025-01-30 20:00] VITALS: O2SAT 96
[2025-01-30 21:10] VITALS: PULSE 80
[2025-01-30 21:11] LABS: Glucose Point of Care 129 mg/dl (65-105)
[2025-01-30] MEDS: INSULIN GLARGINE (*BKC) 1,000 UNITS/10 ML VIAL 9 UNITS SUB-Q (21:13)
[2025-01-31] VITALS: BP 104/43; PULSE 78; RESP 22; TEMP 36.4; O2SAT 91
[2025-01-31] MEDS: HYDROcodone/acetaminophen (*CRX) 5-325 MG TABLET 1 TAB PO ×3 (01:45→14:34)
--- NOTE | 2025-01-31 05:00 | PC.NURSE ---
Pt very SOB w/ exertion when rolling her to place her on bedpan throughout night, noted SPO2 at 87-88% w/ exertion, Pt will recover when at rest w/ SPO2 noted at 91-93%. Pt noted to have large amt of increasing edema into her abd. and c/o pain when rolling onto her side d/t fluid retention. Noted jaundiced colored skin. grid casting machine operator helper Sherry informed on pt status and will have RESEARCH CENTER DIRECTOR reassess today.
[2025-01-31] MEDS: ALBUMIN HUMAN 25% 25 GM/100 ML 100 ML IVPB ×2 (06:04→13:31)
--- NOTE | 2025-01-31 06:35 | PC.NURSE ---
Informed TRAVELING PLANT OPERATOR of patient having SOB with exertion and jaundice skin color today.
[2025-01-31] MEDS: ALBUTEROL SULFATE NEB 2.5 MG/3 ML INH INHALATION (07:43)
[2025-01-31 08:00] VITALS: BP 112/53; PULSE 75; RESP 18; TEMP 35.9; O2SAT 93
[2025-01-31 08:16] LABS: Glucose Point of Care 98 mg/dl (65-105)
[2025-01-31 08:17] LABS: Hematocrit 24.5 % (35.0-42.0); Hemoglobin 7.6 g/dL (11.7-13.8); Mean Platelet Volume 9.7 fl (9.2-11.8); Platelet Count Result 199 K/mm3 (150-420); Red Blood Count 2.45 M/mm3 (4.20-5.40); Red Cell Distribution Width 15.7 % (11.6-14.4); White Blood Count 4.8 K/mm3 (4.8-10.8)
[2025-01-31 08:33] LABS: Alanine Aminotransferase 14 U/L (14-59); Albumin Level 3.9 g/dL (3.4-5.0); Alkaline Phosphatase 305 U/L (46-116); Anion Gap 10 mmol/L (4-12); Aspartate Amino Transferase 18 U/L (15-37); Bilirubin,Total 1.2 mg/dL (0.00-1.00); Blood Urea Nitrogen 24 mg/dL (7-18); Calcium 9.3 mg/dL (8.5-10.1); Carbon Dioxide 27 mmol/L (21-32); Chloride 97 mmol/L (98-108); Estimated CRCL calculation 25 ml/min; Estimated Glomerular Filt Rate 25; Glucose 88 mg/dL (70-99); Osmolality Calculated 281 mOsm/kg (285-295); Potassium 4.2 mmol/L (3.5-5.1); Sodium 134 mmol/L (136-145); Total Protein 7.1 g/dL (6.4-8.2)
--- NOTE | 2025-01-31 09:46 | PCPTNOTE ---
nursing advised PT not to see patient today. she is being transferred to another facility due to acute issues arising.
[2025-01-31] MEDS: CYANOCOBALAMIN 1,000 MCG TABLET 3000 MCG PO (09:53)
[2025-01-31] MEDS: THIAMINE HCL 100 MG TABLET PO (09:53)
[2025-01-31] MEDS: EMPAGLIFLOZIN 10 MG TABLET PO (09:53)
[2025-01-31] MEDS: MAGNESIUM OXIDE 400 MG TABLET PO (09:53)
[2025-01-31] MEDS: LINEZOLID 600 MG TABLET PO (09:53)
[2025-01-31] MEDS: FOLIC ACID 0.4 MG TABLET 0.8 MG PO (09:53)
[2025-01-31] MEDS: ASPIRIN 81 MG ENTERIC TABLET PO (09:53)
[2025-01-31 09:54] VITALS: PULSE 78
[2025-01-31] MEDS: BUMETANIDE INJ 1 MG/4 ML VIAL IV PUSH (09:54)
[2025-01-31] MEDS: PYRIDOXINE HCL 50 MG TABLET 100 MG PO (09:54)
[2025-01-31] MEDS: ATORVASTATIN 10 MG TABLET PO (09:54)
[2025-01-31] MEDS: carvediloL 6.25 MG TABLET PO (09:54)
[2025-01-31] MEDS: THERAPEUTIC MULTIVITAMINS/MINERALS TAB (*BKC) 1 TABLET PO (09:54)
[2025-01-31] MEDS: FERROUS SULFATE 325 MG TABLET DR PO (09:54)
[2025-01-31] MEDS: PANTOPRAZOLE 40 MG TABLET PO (09:54)
[2025-01-31] MEDS: POTASSIUM CHLORIDE 10 MEQ ER TABLET PO (09:54)
[2025-01-31] MEDS: ASCORBIC ACID 500 MG TABLET PO (09:54)
[2025-01-31] MEDS: EUCERIN CREAM 120 GM JAR 1 APPLIC TOPICAL (09:55)
[2025-01-31] MEDS: SPIRONOLACTONE 25 MG TABLET 50 MG PO (09:55)
[2025-01-31] MEDS: COLLAGENASE OINT 30 GM TUBE 1 APPLIC TOPICAL (09:55)
[2025-01-31] MEDS: calcitrioL 0.25 MCG CAPSULE PO (09:55)
[2025-01-31] MEDS: SENNOSIDES 8.6 MG TABLET PO (10:01)
[2025-01-31 12:26] LABS: Glucose Point of Care 85 mg/dl (65-105)
[2025-01-31 15:54] LABS: INR 1.3; Prothrombin Time 13.7 Seconds (9.50-12.1)
[2025-01-31 16:00] VITALS: BP 105/57; PULSE 76; RESP 18; TEMP 35.5; O2SAT 98
--- NOTE | 2025-01-31 16:29 | PM.TDS ---
Transfer Discharge Sum: Prov Provider Date of admission: 01/25/25 16:10 Primary care physician: Ghanshyam Ruiz APRN Admitting clinician: Johnathan Streeter Attending physician on discharge: Johnathan Streeter Discharging clinician: Agustina Naik Anticipated date of transfer: 01/31/25 Receiving physician/facility: [facility] Dr. Dooley DS: Admitting Diagnosis Discharge Date 01/31/25 Admitting Diagnosis weakness DS: Discharge Diagnosis Discharge Diagnosis (1) Acute on chronic diastolic (congestive) heart failure: Code(s): I50.33 - Acute on chronic diastolic (congestive) heart failure Status: Acute (2) Pleural effusion: Code(s): J90 - Pleural effusion, not elsewhere classified Status: Acute (3) Alcoholic cirrhosis of liver: Qualifiers: Ascites presence: without ascites Qualified Code(s): K70.30 - Alcoholic cirrhosis of liver without ascites Code(s): K70.30 - Alcoholic cirrhosis of liver without ascites Status: Chronic (4) Portal venous hypertension: Code(s): K76.6 - Portal hypertension Status: Acute (5) Fall from ground level: Code(s): W18.30XA - Fall on same level, unspecified, initial encounter Status: Acute (6) Pressure ulcer, heel, right, unstageable: Code(s): L89.610 - Pressure ulcer of right heel, unstageable Status: Acute (7) Pressure ulcer of sacral region: Qualifiers: Pressure injury stage: unspecified pressure injury stage Qualified Code(s): L89.159 - Pressure ulcer of sacral region, unspecified stage Code(s): L89.159 - Pressure ulcer of sacral region, unspecified stage Status: Acute (8) Insulin dependent type 2 diabetes mellitus: Code(s): E11.9 - Type 2 diabetes mellitus without complications; Z79.4 - MCFP (current) use of insulin Status: Chronic (9) Chronic kidney disease, stage 3: Qualifiers: Chronic kidney disease stage 3 subtype: stage 3b (GFR 30-44) Qualified Code(s): N18.32 - Chronic kidney disease, stage 3b Code(s): N18.30 - Chronic kidney disease, stage 3 unspecified Status: Chronic (10) Chronic anemia: Code(s): D64.9 - Anemia, unspecified Status: Chronic Transfer Discharge Sum: Med Medications Active and Home Medications: Home Medications fluticasone propionate 50 mcg/actuation nasal spray,suspension 1 spray intranasal DAILY PRN allergies 08/16/20 [History Confirmed 01/25/25] thiamine HCl (vitamin B1) 100 mg tablet (Vitamin B-1) 100 mg PO QAM #30 tabs 08/18/20 [Rx Confirmed 01/25/25] itfsoreorvab-Mi-fbtr-minerals (Multiple Vitamin, Womens tablet) 1 tablet PO DAILY #30 tabs 01/16/21 [Rx Confirmed 01/25/25] mecobalamin (vitamin B12) 1,000 mcg chewable tablet 3,000 mcg PO DAILY 05/13/21 [History Confirmed 01/25/25] pyridoxine (vitamin B6) 100 mg tablet 100 mg PO DAILY 05/13/21 [History Confirmed 01/25/25] magnesium oxide 400 mg (241.3 mg magnesium) tablet 250 mg PO QAM 06/06/21 [History Confirmed 01/25/25] blood sugar diagnostic #360 ea 10/31/22 [Rx Confirmed 01/25/25] empagliflozin 10 mg tablet (Jardiance) 10 mg PO DAILY #30 tabs 10/26/23 [Rx Confirmed 01/25/25] spironolactone 25 mg tablet 25 mg PO QAM #30 tabs 10/26/23 [Rx Confirmed 01/25/25] alendronate 70 mg tablet 70 mg PO WEEKLY #12 tabs 12/12/23 [Rx Confirmed 01/25/25] atorvastatin 10 mg tablet 10 mg PO QAM #90 tabs 06/10/24 [Rx Confirmed 01/25/25] ascorbate calcium (vitamin C) 500 mg tablet 500 mg PO DAILY 06/20/24 [History Confirmed 01/25/25] aspirin 81 mg tablet,delayed release 81 mg PO DAILY 06/20/24 [History Confirmed 01/25/25] folic acid 800 mcg tablet 0.8 mg PO DAILY 06/20/24 [History Confirmed 01/25/25] calcitriol 0.25 mcg capsule 0.25 mcg PO 4XW #16 caps 08/23/24 [Rx Confirmed 01/25/25] pen needle, diabetic 32 gauge x 5/32 (BD Muriel 2nd Gen Pen Needle) #360 ea 09/11/24 [Rx Confirmed 01/25/25] blood-glucose sensor (Dexcom G7 Sensor device) #3 ea 09/13/24 [Rx Confirmed 01/25/25] potassium chloride 10 mEq capsule,extended release 10 meq PO DAILY #90 caps 09/30/24 [Rx Confirmed 01/25/25] insulin glargine 100 unit/mL (3 mL) subcutaneous pen (Lantus Solostar U-100 Insulin) See Rx Instructions .Route .COMPLEX #15 mL 10/25/24 [Rx Confirmed 01/25/25] carvedilol 6.25 mg tablet 6.25 mg PO Q12H #60 tabs 12/31/24 [Rx Confirmed 01/25/25] albuterol sulfate 2.5 mg/3 mL (0.083 %) solution for nebulization 2.5 mg inhalation Q8H PRN shortness of breath or wheezing 01/16/25 [History Confirmed 01/25/25] ferrous sulfate 325 mg (65 mg iron) tablet (Leonard-Time) 325 mg PO DAILY 01/16/25 [History Confirmed 01/25/25] insulin lispro 100 unit/mL subcutaneous pen (Humalog KwikPen (U-100) Insulin) 3 unit subcut TID 01/16/25 [History Confirmed 01/25/25] lanolin alcohols-mineral oil-w.petrolatum-ceresin topical cream 1 applic topical DAILY 01/16/25 [History Confirmed 01/25/25] loperamide 2 mg capsule (Anti-Diarrheal (loperamide)) 2 mg PO QID PRN loose stool 01/16/25 [History Confirmed 01/25/25] midodrine 10 mg tablet 10 mg PO TID PRN dizziness or vertigo 01/16/25 [History Confirmed 01/25/25] ondansetron 4 mg disintegrating tablet 4 mg PO Q6H PRN nausea and vomiting 01/16/25 [History Confirmed 01/25/25] pantoprazole 40 mg tablet,delayed release 40 mg PO BID 01/16/25 [History Confirmed 01/25/25] sennosides 8.6 mg tablet (senna) 8.6 mg PO DAILY PRN constipation 01/16/25 [History Confirmed 01/25/25] bumetanide 1 mg tablet 1 mg PO DAILY #30 tabs 01/25/25 [Rx Confirmed 01/25/25] levofloxacin 750 mg tablet 750 mg PO Q48H #1 tablet 01/31/25 [Rx] linezolid 600 mg tablet 600 mg PO Q12HR #1 tablet 01/31/25 [Rx] Active Medications Acetaminophen (Acetaminophen 325 Mg Tablet) 650 mg PO Q6H PRN PRN Reason: Mild Pain (1-3) or Fever Last Admin: 01/27/25 04:44 Dose: 650 mg Hydrocodone Bitart/Acetaminophen (Hydrocodone/Acetaminophen (*Crx) 5-325 Mg Tablet) 1 tab PO Q4H PRN PRN Reason: Pain Rated 4-6 Last Admin: 01/31/25 14:34 Dose: 1 tab Albuterol (Albuterol Sulfate Neb 2.5 Mg/3 Ml Inh) 2.5 mg INHALATION Q8H PRN PRN Reason: shortness of breath or wheezing Last Admin: 01/31/25 07:43 Dose: 2.5 mg Alendronate Sodium (Alendronate Sodium 70 Mg Tablet) 70 mg PO Tu@0630 [facility] Last Admin: 01/28/25 06:28 Dose: 70 mg Ascorbic Acid (Ascorbic Acid 500 Mg Tablet) 500 mg PO DAILY [facility] Last Admin: 01/31/25 09:54 Dose: 500 mg Aspirin (Aspirin 81 Mg Enteric Tablet) 81 mg PO DAILY [facility] Last Admin: 01/31/25 09:53 Dose: 81 mg Atorvastatin Calcium (Atorvastatin 10 Mg Tablet) 10 mg PO QAM [facility] Last Admin: 01/31/25 09:54 Dose: 10 mg Bumetanide (Bumetanide Inj 1 Mg/4 Ml Vial) 1 mg IV PUSH BID [facility] Last Admin: 01/31/25 09:54 Dose: 1 mg Calcitriol (Calcitriol 0.25 Mcg Capsule) 0.25 mcg PO SuMoWeFr@0900 [facility] Last Admin: 01/31/25 09:55 Dose: 0.25 mcg Carvedilol (Carvedilol 6.25 Mg Tablet) 6.25 mg PO Q12H [facility] Last Admin: 01/31/25 09:54 Dose: 6.25 mg Collagenase (Collagenase Oint 30 Gm Tube) 1 applic TOPICAL QAM [facility] Last Admin: 01/31/25 09:55 Dose: 1 applic Cyanocobalamin (Cyanocobalamin 1,000 Mcg Tablet) 3,000 mcg PO DAILY [facility] Last Admin: 01/31/25 09:53 Dose: 3,000 mcg Dextrose (Dextrose 50% 25 Gm/50 Ml Syringe) 12.5 gm IV PUSH PRN PRN; Protocol PRN Reason: Hypoglycemia Empagliflozin (Empagliflozin 10 Mg Tablet) 10 mg PO DAILY [facility] Last Admin: 01/31/25 09:53 Dose: 10 mg Ferrous Sulfate (Ferrous Sulfate [address]) 325 mg PO DAILY [facility] Last Admin: 01/31/25 09:54 Dose: 325 mg Fluticasone Propionate (Fluticasone Propionate 0.05% Na Spr 16 Gm Btl (*Bkc)) 1 spray NASAL DAILY PRN PRN Reason: allergies Folic Acid (Folic Acid 0.4 Mg Tablet) 0.8 mg PO DAILY [facility] Last Admin: 01/31/25 09:53 Dose: 0.8 mg Glucagon (Glucagon For Inj 1 Mg Vial) 1 mg IM PRN PRN; Protocol PRN Reason: Hypoglycemia Glucose (Glucose Oral Gel 15 Gm Of Glucse In 37.5 Gm Tube) 15 gm PO PRN PRN; Protocol PRN Reason: Hypoglycemia Last Admin: 01/26/25 07:58 Dose: 15 gm Dextrose (Dextrose 5% 1,000 Ml) 1,000 mls @ 100 mls/hr IVPB PRN PRN; Protocol PRN Reason: Hypoglycemia Albumin Human (Albutein) 100 mls @ 60 mls/hr IVPB Q6HR [facility] Last Infusion: 01/31/25 15:12 Dose: Infused Insulin Glargine (Insulin Glargine (*Bkc) 1,000 Units/10 Ml Vial) 9 units SUB-Q HS [facility] Last Admin: 01/30/25 21:13 Dose: 9 units Insulin Human Lispro (Insulin Human Lispro (*Bkc) 1,000 Units/10 Ml Vial) 2 - 5 units SUB-Q TIDWM [facility]; Protocol Last Admin: 01/31/25 12:00 Dose: Not Given Levofloxacin 500 mg/ (Levofloxacin 250 mg) 750 mg PO Q48H [facility] Last Admin: 01/30/25 13:28 Dose: 750 mg Linezolid (Linezolid 600 Mg Tablet) 600 mg PO Q12HR [facility] Last Admin: 01/31/25 09:53 Dose: 600 mg Loperamide HCl (Loperamide Hcl 2 Mg Capsule) 2 mg PO QID PRN PRN Reason: loose stool Magnesium Oxide (Magnesium Oxide 400 Mg Tablet) 400 mg PO QAM [facility] Last Admin: 01/31/25 09:53 Dose: 400 mg Melatonin (Melatonin 5 Mg Tablet) 5 mg PO HS PRN PRN Reason: sleep Midodrine (Midodrine Hcl 2.5 Mg Tablet) 10 mg PO TID PRN PRN Reason: dizziness or vertigo Multi-Ingred Cream/Lotion/Oil/Oint (Eucerin Cream 120 Gm Jar) 1 applic TOPICAL DAILY [facility] Last Admin: 01/31/25 09:55 Dose: 1 applic Multivitamins/Calcium (Therapeutic Multivitamins/Minerals Tab (*Bkc)) 1 tablet PO DAILY [facility] Last Admin: 01/31/25 09:54 Dose: 1 tablet Ondansetron HCl (Ondansetron Hcl Odt 4 Mg Tablet) 4 mg PO Q6H PRN PRN Reason: nausea and vomiting Pantoprazole Sodium (Pantoprazole 40 Mg Tablet) 40 mg PO BID [facility] Last Admin: 01/31/25 09:54 Dose: 40 mg Potassium Chloride (Potassium Chloride 10 Meq Er Tablet) 10 meq PO DAILY [facility] Last Admin: 01/31/25 09:54 Dose: 10 meq Pyridoxine HCl (Pyridoxine Hcl 50 Mg Tablet) 100 mg PO DAILY [facility] Last Admin: 01/31/25 09:54 Dose: 100 mg Senna (Sennosides 8.6 Mg Tablet) 8.6 mg PO DAILY PRN PRN Reason: constipation Last Admin: 01/31/25 10:01 Dose: 8.6 mg Spironolactone (Spironolactone 25 Mg Tablet) 50 mg PO QAM [facility] Last Admin: 01/31/25 09:55 Dose: 50 mg Thiamine HCl (Thiamine Hcl 100 Mg Tablet) 100 mg PO QAM [facility] Last Admin: 01/31/25 09:53 Dose: 100 mg Transfer Discharge Sum: Hosp Hospital Course Hospital course: Lou Islas is a 69 year old female with a significant past medical history of alcoholic cirrhosis, alcohol abuse, CHF, type 2 diabetes mellitus, chronic hypo natremia, chronic kidney disease stage 3, anemia, venous insufficiency, lipodermatosclerosis a bilateral lower extremity who presented to [facility] for additional rehab after being at [facility] status post fall. While at [facility] they incidentally found a right-sided pleural effusion likely from her worsening cirrhosis and she had a thoracentesis on 01/20/2025 yielding 1 L of pleural fluid. She then came to [facility] swing bed program for additional PT and OT. While at [facility] she became short of breath and work of breathing worsened a chest x-ray was obtained on 01/30/2025 which yielded a large pleural effusion on the right lung. Transfer initiated for therapeutic thoracentesis. [facility] transfer center was called at 9:30 a.m. this morning however we did not hear back until 415 today who is willing to accept however we are ready initiated transfer to [facility] where there is an interventional radiologist to will be on staff tomorrow and can do a therapeutic thoracentesis in the morning. Spoke with admitting physician at [facility] who accepted the patient and she will be accepted under Dr. Gant and go to room 315 while awaiting a bed at [facility] for hepatobiliary service. I did speak with Dr. Botello at [facility] who is willing to accept the patient however we will have to reinitiate transfer once she gets to [facility] per [facility] transfer center policy. They estimate the wait time for a medical bed to be 1 week. Her meld score is 17. INR 1.3 Final diagnosis: Pleural effusion, anasarca, weakness, alcoholic cirrhosis of the liver Condition: Serious Time Spent with Patient Time attestation: Total time spent providing and/or coordinating transfer services: Total time spent: Greater than 30 minutes Exam Narrative: General: In no acute distress, well nourished Head: atraumatic, no encephalopathy Eyes: PERRLA, sclera yellow ENT: moist mucous membranes, nasal passages clear Neck: supple, no JVD, no adenopathy, trachea midline Cardiac: Normal S1 and S2. No murmur, gallops or friction rubs, peripheral pulses intact. Respiratory: Right lower lobe diminished, crackles in right upper lobe, lungs clear left upper lobe, crackles in left lower lobe, currently on 2 L nasal cannula, mild use of accessory muscles, shortness a breath with exertion and rest Gastrointestinal: soft, non-distended, non-tender, normoactive bowel sounds. : voiding without difficulty. Extremities: moves all extremities well, no edema, good ROM, strength 5/5 Skin: Jaundice Neuro: Alert and oriented x4, cranial nerves intact, no neuro deficits. Psych: normal mood, normal affect, interactive DS: Data Data Completed and Pending Completed studies during hospitalization: Chest x-ray Pending studies at discharge: None Labs on day of discharge: Labs from last 24 hours 01/31/25 01/31/25 01/31/25 15:34 12:21 08:08 WBC 4.8 RBC 2.45 L Hgb 7.6 L Hct 24.5 L MCV 100.0 MCH 31.0 MCHC 31.0 L RDW 15.7 H Plt Count 199 MPV 9.7 PT 13.7 H INR 1.3 Sodium 134 L Potassium 4.2 Chloride 97 L Carbon Dioxide 27 Anion Gap 10 BUN 24 H Creatinine 2.00 H Estim Creat Clear Calc 25 Estimated GFR 25 L Glucose 88 POC Capillary Glucose 85 Calculated Osmolality 281 L Calcium 9.3 Total Bilirubin 1.2 H AST 18 ALT 14 Alkaline Phosphatase 305 H Total Protein 7.1 Albumin 3.9 01/31/25 01/30/25 01/30/25 08:07 21:09 16:51 WBC RBC Hgb Hct MCV MCH MCHC RDW Plt Count MPV PT INR Sodium Potassium Chloride Carbon Dioxide Anion Gap BUN Creatinine Estim Creat Clear Calc Estimated GFR Glucose POC Capillary Glucose 98 129 H 125 H Calculated Osmolality Calcium Total Bilirubin AST ALT Alkaline Phosphatase Total Protein Albumin Preliminary micro results at discharge 01/25/25 18:25 Anaerobic Culture - Preliminary Foot Right Procedures/Treatments: None Imaging Radiologist's impression: CHEST RADIOGRAPH, PA AND LATERAL CLINICAL HISTORY: pleural effusion . COMPARISON: CT examination of the chest abdomen and pelvis dated 01/27/2025 TECHNIQUE: PA and lateral views of the chest. FINDINGS The cardiomediastinal silhouette is partially obscured. Redemonstration of a large right-sided pleural effusion, with adjacent compressive atelectasis. The left hemithorax is clear. IMPRESSION: Large right-sided pleural effusion with adjacent compressive atelectasis Reviewed, dictated and finalized at location A.
--- NOTE | 2025-02-07 11:28 | PC.NURSE ---
Unable to complete Discharge Call back, pt transfered to another hospital.
== END 2025-01-31 16:35 | disposition short-term general hospital (02) | DRG 947 ==
PROVIDERS: Nurse Practitioner Family; Admitting Provider Internal Medicine; PCP Nurse Practitioner; Visit Provider Nurse Practitioner Acute Care
DX: R53.1 Weakness (principal); I50.33 Acute on chronic diastolic (congestive) heart failure; E87.1 Hypo-osmolality and hyponatremia; J90 Pleural effusion, not elsewhere classified; I12.9 Hypertensive chronic kidney disease with stage 1 through stage 4 chronic kidney disease, or unspecified chronic kidney disease; N18.31 Chronic kidney disease, stage 3a; I87.2 Venous insufficiency (chronic) (peripheral); L89.159 Pressure ulcer of sacral region, unspecified stage; L89.619 Pressure ulcer of right heel, unspecified stage; K70.30 Alcoholic cirrhosis of liver without ascites; K21.9 Gastro-esophageal reflux disease without esophagitis; E11.22 Type 2 diabetes mellitus with diabetic chronic kidney disease; D63.8 Anemia in other chronic diseases classified elsewhere; I65.22 Occlusion and stenosis of left carotid artery; I95.89 Other hypotension; M81.0 Age-related osteoporosis without current pathological fracture; M19.90 Unspecified osteoarthritis, unspecified site; G47.33 Obstructive sleep apnea (adult) (pediatric); F10.10 Alcohol abuse, uncomplicated; W19.XXXD Unspecified fall, subsequent encounter; Z96.641 Presence of right artificial hip joint; S82.141D Displaced bicondylar fracture of right tibia, subsequent encounter for closed fracture with routine healing; Z87.891 Personal history of nicotine dependence
CPT/HCPCS: 36415; 71046; 71250; 74176; 80053; 82948; 85027; 85610; 87070; 87075; 87147; 87181; 87186; 87205; 94640; 97110; 97161; 97165; 97530; 97535; A9270; J1815; J1939; P9047

== ENCOUNTER 2025-01-31 17:16 | Inpatient (IN) | payer MEDICARE, SELFPAY ==
--- NOTE | ~2025-01-31 | XR_ITS ---
XR chest 1V portable Ordering provider: Asya Kohli APRN History: 69 years Female with . Shortness of breath . Comparison: January 30, 2025 FINDINGS: MEDIASTINUM: The cardiac silhouette is slightly enlarged. LUNGS: No pneumothorax. Opacification in the right upper and lower lobe and left lower lobe suggestiv e of atelectasis versus pneumonia with right pleural effusion. OTHER: No free air under the diaphragm. Degenerative changes of the spine. IMPRESSION: Bilateral pneumonia more on the right side with right pleural effusion. Reviewed, dictated and finalized at location A.
--- NOTE | ~2025-01-31 | XR_ITS ---
XR chest 2V Ordering provider: Agustina Naik APRN History: 69 years Female with . pleural effusion . Comparison: February 02, 2025 FINDINGS: MEDIASTINUM: The cardiac silhouette is slightly enlarged. LUNGS: No effusions or pneumothorax. Opacification in the right lung base suggestive of atelectasis v ersus pneumonia. Tenting of the left hemidiaphragm seen which may be due to adjacent atelectasis. Min imal effusion on the right side is not excluded. OTHER: No free air under the diaphragm. IMPRESSION: Right basilar atelectasis versus pneumonia. Reviewed, dictated and finalized at location A.
--- NOTE | ~2025-01-31 | XR_ITS ---
Portable chest x-ray Comparison: 02/03/2025 Clinical History: Pleural effusion Findings: Lungs are clear, without focal consolidation or pleural effusion. Cardiomediastinal silho uette is stable. Bones and soft tissues are unremarkable. Impression: Clear lungs. Reviewed, dictated and finalized at [facility]. Impression: Clear lungs.
--- NOTE | ~2025-01-31 | XR_ITS ---
EXAMINATION: XR chest 1V portable Exam Date/Time: 02/02/2025 16:00 CDT HISTORY: pleural effusion Comparison: 02/01/2025. RESULT: Lines, tubes, and devices: None. Lungs and pleura: Worsening diffuse reticular opacities. Mild right costophrenic angle blunting. Cardiomediastinal silhouette: Stable. Other: No acute osseous or upper abdominal finding. IMPRESSION: Increasing interstitial edema. Increasing small right pleural effusion. Reviewed, dictated and finalized at location K.
--- NOTE | ~2025-01-31 | US_ITS ---
EXAMINATION: US thoracentesis DATE: 02/04/2025 14:28 INDICATION: Right pleural effusion TECHNIQUE: The procedure and its risks and benefits were discussed with the patient. Potential risks discussed included bleeding, infection, and pneumothorax. The patient understood the risks and agreed to proceed. The skin was prepped and draped in sterile fashion. 1% lidocaine was used for local anes thesia. Under ultrasound guidance, a 5 Fr catheter with trochar was advanced into the right pleural e ffusion. Fluid was aspirated. The catheter was removed, and a dressing was applied. There were no imm ediate complications. FINDINGS: Ultrasound images demonstrate a moderate-sized right pleural effusion and the catheter within the flu id. IMPRESSION: 1. Successful ultrasound-guided thoracentesis yielding 1100 mL of yellowish fluid. Reviewed, dictated and finalized at location A. IMPRESSION: 1. Successful ultrasound-guided thoracentesis yielding 1100 mL of yellowish fl uid.
--- NOTE | ~2025-01-31 | US_ITS ---
EXAMINATION: US thoracentesis DATE: 02/01/2025 09:21 INDICATION: Right pleural effusion TECHNIQUE: The procedure and its risks and benefits were discussed with the patient. Potential risks discussed included bleeding, infection, and pneumothorax. The patient understood the risks and agreed to proceed. The skin was prepped and draped in sterile fashion. 1% lidocaine was used for local anes thesia. Under ultrasound guidance, a 5 Fr catheter with trochar was advanced into the right pleural e ffusion. Fluid was aspirated. The catheter was removed, and a dressing was applied. There were no imm ediate complications. FINDINGS: Ultrasound images demonstrate a moderate-sized right pleural effusion and the catheter within the flu id. IMPRESSION: 1. Successful ultrasound-guided thoracentesis yielding 1100 mL of clear yellow fluid. Reviewed, dictated and finalized at location A.
--- NOTE | ~2025-01-31 | XR_ITS ---
EXAMINATION: [id number]_[id number]_CR DATE: 02/01/2025 09:17 INDICATION: Status post right thoracentesis TECHNIQUE: frontal view of the chest was obtained. COMPARISON: Chest radiograph dated 01/31/2025 FINDINGS: Decreased hazy airspace opacities on the right lower lung zone with resolution of the midlung zone an d with resolution of the prior blunting at the right costophrenic angle consistent decreased size of a previously small to moderate, now small right pleural effusion with associated atelectasis and/or p neumonia. Left lung remains clear with subtle skinfold projecting along the lateral left midlung zone . No pulmonary edema or pneumothorax. Heart size is normal. Visualized bones and soft tissues are unr emarkable. IMPRESSION: 1. Decrease small right pleural effusion with associated basilar atelectasis and/or pneumonia post ri ght thoracentesis. Reviewed, dictated and finalized at location A. IMPRESSION: 1. Decrease small right pleural effusion with associated basilar atelectasis an d/or pneumonia post right thoracentesis.
--- NOTE | ~2025-01-31 | XR_ITS ---
EXAMINATION: [id number]_CR DATE: 02/04/2025 14:22 INDICATION: Post right thoracentesis TECHNIQUE: frontal and lateral views of the chest were obtained. COMPARISON: Chest radiograph dated 02/03/2025 FINDINGS: Interval decrease in size of a previously small to moderate-sized, currently small right pleural effu eugene. There is also a small left-sided pleural effusion. Mild opacities in the dependent lower lungs consistent with associated atelectasis versus less likely pneumonia. No pneumothorax. Heart size with in normal limits for AP technique. IMPRESSION: 1. Small bilateral pleural effusions, decreased on the right postthoracentesis. 2. Opacities at the dependent lower lungs most likely/atelectasis although differential includes pneu monia. Reviewed, dictated and finalized at location A. IMPRESSION: 1. Small bilateral pleural effusions, decreased on the right postthoracentesis. 2. Opacities at the dependent lower lungs most likely/atelectasis although diff erential includes pneumonia.
--- OUTSIDE RECORDS SUMMARY | 2025-01-31 17:41 | XMS_ITS | Patient Health Record ---
Author Organization [facility] Address [address] [place] [address] Care Team Providers Care Clothes Drier Assembler Name Role Phone Ramesh Smith Primary Care Provider UnavailDr. 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 confirmed Problem Chronic migraine without aura, non-intractable (006496511486027) Chronic migraine without aura, not intractable, without status migrainosus (G43.709) Active confirmed Problem Alcoholic polyneuropathy (9621726) 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 confirmed Problem Orthostatic hypotension (29067246) Orthostatic hypotension (I95.1) Active confirmed Problem Abnormal gait (83076012) Other abnormalities of gait and mobility (R26.89) Active confirmed Problem Malaise (398746329) Other malaise (R53.81) Active confirmed Problem Neurogenic claudication (621873146) Spinal stenosis, lumbar region with neurogenic claudication (M48.062) Active confirmed Encounters Encounter Location Date Provider Diagnosis [facility] [address] [place] [address] 03/30/2024 Provider [facility] Plan Of Treatment No Information Insurance Providers Payer Name Payer Address Payer Phone Subscriber Number Group Number Insured Name Patient Relationship to Insured Coverage Start Date Coverage End Date [employer] (Medicare) Attention Claims [address] [place] [address] [id number] Lou Islas Self - patient is the insured [employer] [address] [place] [id number] [phone] [id number] Lou Islas Self - patient is the insured Medical (General) History Medical History History ICD Code Obesity DM2 HLD HTN Osteoarthritis Osteoporosis Lumbar DDD GERD Chronic hyponatremia Mild CKD Liver cirrhosis Surgical History Surgery Date(Month/Year) R hip replacement L hip replacement Lumbar discectomy B cataract
--- OUTSIDE RECORDS SUMMARY | 2025-01-31 17:41 | XMS_ITS | Clinical Summary ---
Author Organization [facility] Address [address] [place] [address] Phone Care Team Providers Care Oil Spraying Machine Operator Name Role Phone Dariel Horvath DO Primary Care Provider Allergies Active Allergy Reactions Criticality Noted Date [...] Ended) 2025 Insurance MEDICARE T Care Teams Oil Spraying Machine Operator Relationship Specialty Start Date End Date Dariel Horvath DO [address] [facility] [address] [place] [address] PCP - General Internal Medicine 05/27/21
--- OUTSIDE RECORDS SUMMARY | 2025-01-31 17:41 | XMS_ITS ---
Author Organization [facility] Address [address] [place] [address] Care Team Providers Care Foam Rubber Curer Name Role Phone Ramesh Smith Primary Care Provider UnavailDr. Juan Doherty Unavailable [phone] Wilfrido Harley Unavailable Unavailable [facility], Provider Unavailable Unavailab le Allergies Allergen (clinical drug ingredient) Drug/Non Drug Allergy documented on EMR Reaction Allergy Type Onset Date Status codeine Codeine Unknown Drug Allergy Active REASON FOR VISIT [facility] To [facility] Conversion Encounter Medications Medication SIG (Take, [...] Encounters Encounter Location Date Provider Diagnosis [facility] [address] [place] [address] 03/30/2024 Provider [facility]Migration Plan Of Treatment No Information Progress Notes * Lizzeth JOYhDOB:1955 (69 yo F)Acc No.[id number]:03/30/2024 Patient: Lou HARRIS Provider: Edel Taylor :1955 A ge:68 Y S ex:Female Date:03/30/2024 [facility] [address] Pcp:Ramesh Smith Subjective: * Chief Complaints: * [facility] . [facility] * Medical History: * [...] Electronic signature of Prov ider [facility]-Migration on 01/31/2025 at 05:41 PM CDT Sign off status: Pending * Provider: Edel Taylor Date: 0 03/30/2024 Generated for Mare kathleen/Tao/Rach on: 01/31/2025 05:41 PM CDT
--- OUTSIDE RECORDS SUMMARY | 2025-01-31 17:42 | XMS_ITS | Clinical Summary ---
Author Organization [facility] Address [address] [address] Care Team Providers Care Arc Welder Apprentice Name Role Phone Dariel Horvath DO Primary Care Provider [phone] Source Comments [facility],non-owned Affiliates and Associated Physician Practices is amultiple site organization consisting of ambulatory clinics and hospital sitesin [place], [place], [place] and [place]. This disclosure is being madepursuant to the Care Everywhere program and may not contain all information available regarding this patient. Last updated 18.[facility] [employer] Allergies Active Allergy Reactions Criticality Noted Date [...] femur, unspecified fracture morphology, initial encounter ([facility]) Take 1 (one) capsule by mouth 2 [...] 85.3 kg (188 lb) 09/16/2021 10:56 AM BARREL AND RECEIVER ALIGNER Height 165.1 cm (5' 5 ) 06/24/2021 [...] - COLON CA SCREENING 1955 MAMMOGRAM 1955 HEPATITIS C SCREENING 04/11/1972 DTAP/TDAP/TD VACCINES (1 - Tdap) 1973 PNEUMOCOCCAL VACCINE 50+ (1 of 1 - PCV) 2004 ZOSTER VACCINE (1 of 2) 2004 Respiratory Syncytial Virus (RSV) Vaccine Pt: or over 60 yrs (1 - Risk 60-74 years 1-dose series) 2014 DIABETES-FOOT EXAM WITH MONOFILAMENT 05/31/2021 DIABETES-HGB A1C [...] this topic Medical Devices Implanted Type Area Leather Case Finisher Device Identifier Shelf Expiration Date Model / Serial / Lot 8.0mm Cannulated Locking Screw Implanted:Qty: 1 on 05/31/2021 by Mary Ann Elkins MD at [facility] Left: Leg [id number] / / Plate 6 Hl Lck Precontr Fem Lt Dist Implanted:Qty: 1 on 05/31/2021 by Mary Ann Elkins MD at [facility] Left: Leg [employer] 06/24/2028 [id number] / / 5.5mm Dt Poly Locking Screws Implanted:Qty: 2 on 05/31/2021 by Mary Ann Elkins MD at [facility] Left: Leg [employer] [id number] / / 5.5mm Ft Poly Locking Screws Implanted:Qty: 2 on 05/31/2021 by Mary Ann Elkins MD at [facility] Left: Leg [id number] / / 4.5mm Solid Cortical Bone Screw Implanted:Qty: 1 on 05/31/2021 by Mary Ann Elkins MD at [facility] Left: Leg [id number] / / 4.5 Solid Cortical Bone Screw Implanted:Qty: 1 on 05/31/2021 by Mary Ann Elkins MD at [facility] Left: Leg [id number] / / 4.5 Solid Cortical Bone Screw Implanted:Qty: 1 on 05/31/2021 by Mary Ann Elkins MD at [facility] Left: Leg [id number] / / 4.5 Solid Cortical Bone Screw Implanted:Qty: 1 on 05/31/2021 by Mary Ann Elkins MD at [facility] Left: Leg [id number] / / Explanted Type Area Leather Case Finisher Device Identifier Shelf Expiration Date Model / Serial / Lot Wire K 1.6mm 150mm 1 End Troc Pnt Ss Explanted:Qty: 1 on 05/31/2021 by Mary Ann Elkins MD at [facility] Left: Leg [employer] [id number] / / 5.5mm Non-Locking Screws Explanted:Qty: 1 on 05/31/2021 by Mary Ann Elkins MD at [facility] Left: Leg [id number] / / 4.5 Solid Cortical Bone Screw Explanted:Qty: 1 on 05/31/2021 by Mary Ann Elkins MD at [facility] Left: Leg [id number] / / Procedures Procedure Name Priority Date/Time Associated Diagnosis Comments COMPREHENSIVE METABOLIC PANEL AM Draw 06/04/2021 1:24 AM CDT HEMOGLOBIN A1C DIOMEDES 05/31/2021 3:39 AM CDT from Last 3 Months or Most Recently Relevant to Health Maintenance Results * (ABNORMAL) COMPREHENSIVE METABOLIC PANEL (06/04/2021 1:24 AM CDT) BUN 14 7 - 26 mg/dL 06/04/2021 2:51 AM [facility] Creatinine 1.13(H) 0.56 - 0.96 mg/dL 06/04/2021 2:51 AM [facility] Sodium 130(L) 136 - 145 mmol/L 06/04/2021 2:51 AM [facility] Potassium 4.1 3.5 - 4.5 mmol/L 06/04/2021 2:51 AM [facility] Chloride 98 98 - 107 mmol/L 06/04/2021 2:51 AM [facility] CO2 24 22 - 29 mmol/L 06/04/2021 2:51 AM [facility] Glucose 138(H) 70 - 115 mg/dL 06/04/2021 2:51 AM [facility] Calcium 8.5 8.4 - 10.2 mg/dL 06/04/2021 2:51 AM [facility] Protein Total 5.4(L) 6.0 - 8.3 g/dL 06/04/2021 2:51 AM [facility] Albumin 2.8(L) 3.4 - 5.0 g/dL 06/04/2021 2:51 AM [facility] Bilirubin Total 1.0 0.2 - 1.2 mg/dL 06/04/2021 2:51 AM [facility] Alkaline Phosphatase 284(H) 40 - 150 U/L 06/04/2021 2:51 AM [facility] ALT 13 5 - 55 U/L 06/04/2021 2:51 AM [facility] AST 33 5 - 34 U/L 06/04/2021 2:51 AM [facility] Anion Gap 12 8 - 18 06/04/2021 2:51 AM [facility] BUN/Creatinine Ratio 12 7 - 23 06/04/2021 2:51 AM [facility] Osmolality Calculated 273 270 - 300 mOsm/kg 06/04/2021 2:51 AM [facility] Albumin/Globulin Ratio 1.1 1.1 - 2.3 06/04/2021 2:51 AM [facility] eGFR by CKD-EPI 50(L) >=90 mL/min/1.7 3 m2 06/04/2021 2:51 AM [facility] Blood BLOOD SPECIMEN / Unknown Lab Venipuncture / Unknown 06/04/2021 1:24 AM CDT 06/04/2021 2:15 AM T us Janene Sampson PA-C LAB - CHEMISTRY ORDERABLES F inal Result [facility] [address] [place] [id number], [facility] [phone] * HEMOGLOBIN A1C (05/31/2021 3:39 AM CDT) Hemoglobin A1c 5.4 4.4 - 6.3 % 05/31/2021 10:18 AM CDT [facility] Estimated Average Glucose 108 mg/dL 05/31/2021 10:18 AM [facility] Comment: HbA1c Interpretation: Treatment target values recommended by ADA and other clinical organizations should be used to evaluate metabolic control in patients. Treatment Target Values: Normal : < 5.7% Pre-diabetes: 5.7-6.4% Diabetes: Equal to or greater than 6.5% Reference: [place] Diabetes Association Standards of Care in Diabetes -2014 In patients 70 years and older consider HbA1c target range of 7.0-7.5% Reference: Diabetes Mellitus in Older People: Position Statement on behalf of the International Association of Gerontology and Geriatrics (IAGG), the Diabetes Working Libertarian for Older People (EDWPOP), and the International Task Force of Experts in Diabetes. Phu Pisano, et al. J [place] Medical Directors Association. 2012 Test results diagnostic of diabetes should be repeated for confirmation. The Sebia Capillary 2 assay for the measurement of HbA1c is a National Glycohemoglobin Standardization Program (NGSP)certified method. Blood BLOOD SPECIMEN / Unknown Venipuncture / Unknown 05/31/2021 3:39 AM CDT 05/31/2021 3:46 AM CDT Raheel Erazo MD LAB - CHEMISTRY ORDERABLES Manda curiel Result [facility] [address] [place] [address], [facility] [phone] from Last 3 Months or Most Recently Relevant to Health Maintenance Insurance MEDICARE Member Subscriber Plan / Payer (Ef fective 2021-Present) Name:Lou Islas Member ID:[id number] Relation to Subscriber:Self Name:Lou Islas Subscriber ID:[id number] Payer ID:Not on file Group ID:Not on file Type:Medicare Address: [place] [id number] MEDICARE SUPPLEMENT PAYOR GENERIC AET[employer] MEDICARE Advance Directives * Full Code (Latest Code Status on File) Date Activated Date Inactivated Comments 05/31/2021 12:14 AM 06/04/2021 6:44 PM Care Teams Arc Welder Apprentice Relationship Specialty Start Date End Date Dariel Horvath DO [address] [facility] [address] [place] [address] PCP - General Internal Medicine 05/30/21
--- OUTSIDE RECORDS SUMMARY | 2025-01-31 17:42 | XMS_ITS ---
Author Organization [facility] Address [address] [place] [address] Care Team Providers Care Metal Fabricator Welder Name Role Phone Ramesh Smith Primary Care Provider Dr. 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 confirmed Problem Polyneuropathy due to type 2 diabetes mellitus (224808706) Type 2 diabetes mellitus with diabetic polyneuropathy (E11.42) Active confirmed Problem Neurogenic claudication (672594401) Spinal stenosis, lumbar region with neurogenic claudication (M48.062) Active confirmed Problem Abnormal gait (78652148) Other abnormalities of gait and mobility (R26.89) Active confirmed Problem Malaise (934252692) Other malaise (R53.81) Active confirmed Problem Orthostatic hypotension (26691310) Orthostatic hypotension (I95.1) Active confirmed Problem Hypo-osmolality and or hyponatremia (088727272) Hypo-osmolality and hyponatremia (E87.1) Active confirmed Vital Signs Blood pressure systolic 130 mm Hg 08/30/20 23 Blood pressure diastolic 85 mm Hg 023 Respiratory Rate 16 /min 08/30/2023 Height 65 in 08/30/2023 Weight 192 lbs 08/30/2023 BMI 31.95 kg/m2 08/30/2023 Oximetry 100 % 08/30/2023 Encounters Encounter Location Date Provider Diagnosis [facility] [address] [address] 08/30/2023 Juan Alvarado Alcohol dependence, uncomplicated F10.20 [...] advised her to discuss this with her Automatic Nailing Machine Operator as too much increased free water intake [...] advised her to discuss this with her Automatic Nailing Machine Operator as too much increased free water intake could worsen her hyponatremia Hypo-osmolality and hyponatremia Follow- up with Nephrology Next Appt Details Follow Up: prn, Reason: Eval uation and Management Progress Notes * Lizzeth JOYhDOB:1955 (68 yo F)Acc No.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 H ypo-osmolality and hyponatremia Notes: Follow-up with Nephrology * Procedure Codes: G 8427 DOC MEDS VERIFIED W/PT OR [id number] FLU IMMUNIZE ORDER/AFLTF3610F ACP DISCUSS/DSCN MKR DOCD, Modifiers: 8P G9991 Pneum vax admin 60+G8417 BMI >=30 CALCUATE W/[id number] TOBACCO NON-YIHON5808 BP SCR PRFRM RCMDD DEFIND SCR INTVL * Preventive Medicine: T his was a 60 minute visit with time spent in reviewing prior records, evaluation and management, and counseling. * Follow Up: p rn (Reason: Evaluation and Management) * Billing Information: * Visit Code: 81132 Office Visit, New Pt., Level 5. Modifiers: 25 * Procedure Codes: G8427 DOC MEDS VERIFIED W/PT OR RE. G8482 FLU IMMUNIZE ORDER/ADMIN. 1123F ACP DISCUSS/DSCN MKR DOCD. Modifiers: 8P G9991 Pneum vax admin 60+. G8417 BMI >=30 CALCUATE W/FOLLOWUP. 1036F TOBACCO NON-USER. G8783 BP SCR PRFRM RCMDD DEFIND SCR INTVL. * LY INJURY ADJUSTER Sign off status: Completed true * Provider: Sadia Alvarado MD Date: 10/30/2022 Generated for Mare kathleen/Faxing/eTransmitting on: 0 01/31/2025 05:41 PM CDT History and Physical Notes * [...]
--- NOTE | 2025-01-31 17:47 | ADMGEN ---
This patient, Lou Islas, was admitted to [facility] Surg Room 315-02. Patient/family oriented to hospital policies and general routines including ID bracelet, bed and alarms, visiting hours, pain management, procedures, bathroom and other care routines, personal items, smoking policy, room service/diet, and visiting hours. Information on how to activate the Rapid Response Team has been discussed. Patient/Family are encouraged to report perceived risks to care and to ask questions if they do not understand what they are told or what they should do.
[2025-01-31 17:56] VITALS: BP 94/50; PULSE 87; RESP 16; TEMP 37; O2SAT 100
--- NOTE | 2025-01-31 18:07 | P.HP_ITS ---
H&P: HPI History of Present Illness Date/Time: 01/31/25 18:07 Chief Complaint: Pleural effusion Narrative: This is a 69 year old female with a significant past medical history of CHF, type 2 DM, alcoholic cirrhosis of the liver with a current Meld score of 17, CKD stage 3a who presented to [facility] from [facility] for evaluation of pleural effusion. Prior to her admission to [facility] program, patient was initially seen and treated at [facility] for evaluation after a ground level fall and hypotension. She was reporting knee pain after the fall and came in to [facility] for additional work up. Workup in the hospital at that time included an ultrasound of both lower extremities which were negative for DVT, knee x-ray showed a medial tibial plateau fracture without significant depression, CT of the abdomen and pelvis showed prominent common bile duct with a 4 mm stone in the distal common bile duct, multiple calcifications identified within the ivan hepaticus on prior studies without definitive ductal obstruction. Knee CT was negative for fracture. GI and General surgery was consulted at that time and treating and decided to treat conservatively as she was not complaining gallbladder issues and this was likely an incidental finding. She started having increased work of breathing and we continue to diurese her however she didn't show signs of improvement. A CT of the chest, abdomen, pelvis was obtained and shown a moderate size pleural effusion likely secondary to her cirrhosis of the liver. She had a thoracentesis on 01/20/2025 yielding 1 L of pleural fluid. Since that time she continued to improve and was sent out on 01/25/[address] [facility] program for further rehab needs. Patient was doing well with her therapy and then started getting worsening short of breath and a chest x-ray shown worsening pleural effusion on the right lung with anasarca present. Her work of breathing worsened overnight requiring oxygen. She was then transferred back to [facility] with plans for a therapeutic thoracentesis and plans to transfer patient to tertiary hospital for hepatobiliary services. I spoke with [facility] at 1820 p.m. and re-initiated transfer to [facility] with Dr. Botello accepting. Wait time for medical bed at [facility] is around 1 week. Review of Systems Review of Systems: All systems reviewed & are unremarkable except as noted in HPI and below PMFSH Past Medical History Medical History Alcoholic cirrhosis of liver Chronic venous insufficiency of lower extremity Stage 3a chronic kidney disease Shingles ANTHONY (obstructive sleep apnea) Osteoporosis Gram-negative bacteremia Anemia of chronic disease Ascites Obesity (BMI 30-39.9) Hyperlipidemia, unspecified Carotid artery disease Alcohol abuse Osteoarthritis Diastolic dysfunction ECHO 10/2023: normal LV systolic function, estimated EF of 60-65%, abnormal diastolic dysfunction. Left-sided carotid artery disease 01/2021: 50 to 69% stenosis of the left ICA. Orthostatic hypotension on midodrine, chronic hypotension, previously caused syncope and frequent falls and subsequent fractures. Insulin dependent type 2 diabetes mellitus A1C 5.1% 08/2024 Hypertension Chronic hyponatremia Eczema Periprosthetic fracture of femur following total replacement of hip (01/2020) Non operative treatment. GERD (gastroesophageal reflux disease) Surgical History Surgical History Status post open reduction with internal fixation of fracture (05/30/21) ORIF of comminuted intra-articular fracture of the distal left femur, done at [facility]. History of hysterectomy (2005) Due to uterine fibroids and endometriosis. History of bilateral cataract extraction History of lumbar surgery (2005) L1-L3. History of right hip replacement (2005) Per Dr. Curiel in [place]. Family History Family History Father Heart attack Mother Diabetes mellitus COPD (chronic obstructive pulmonary disease) Hypertension Afib Sibling Amputation above knee Diabetes mellitus Father , At age 50 Acute myocardial infarction Sibling , At age 50 Pancreatic cancer Social History Social History Social History: The patient lives in her own home in [place]. She has been twice, her 1st and she has since her 2nd . She has no children. She moved to this area within the last couple of years from [place] to be close to her 3 remaining siblings. She worked from home for a [email or web address] doing [employer] and she has a master's degree in statistics. She has recently retired.She smoked up to 2 packs of cigarettes a day before quitting in 2005. She drinks 2 mixed drinks a day, each containing a shot of vodka which equals out to about 1 L to 1.7 L of vodka a week. She denies illicit substance use. Surrogate decision maker: Miladys Jensen, sister. Code status: Full code. Smoking packs per day: 2 Smoking cigarettes per day: 40.0 Years smoked: 30 Smoking pack-years: 60.00 Smoking status: Former smoker Smokeless tobacco user: chewing tobacco Second hand tobacco smoke exposure: No Alcohol intake: former Drinks per week: 14 Substance use: never Substance use type: does not use Do You Feel Safe in your Home?: Yes Lack of Transportation: No Lack of Food: Never True Current Housing: I Have Housing Concerned About Future Housing: No Difficulty Paying Gas/Electric Bills: No Difficulty Paying for Meds: No Currently Unemployed: No Education: Master's Degree or Higher Difficulty w/ Childcare or Family Care: No Living arrangements: alone Occupation/Education: retired Gender identity (if verbalized by the patient): Female Sexual Orientation (if Verbalized by the Patient): Straight or Heterosexual Spiritual care concerns: No Meds Home Medications and Allergies Home Medications ?Medication ?Instructions ?Recorded ?Confirmed ?Type fluticasone propionate 50 1 spray intranasal DAILY PRN 08/16/20 01/31/25 History mcg/actuation nasal allergies spray,suspension thiamine HCl (vitamin B1) 100 mg 100 mg PO QAM #30 tabs 08/18/20 01/31/25 Rx tablet (Vitamin B-1) qmdgrnqvlanq-Ad-vxrl-minerals 1 tablet PO DAILY #30 tabs 01/16/21 01/31/25 Rx (Multiple Vitamin, Womens tablet) mecobalamin (vitamin B12) 1,000 3,000 mcg PO DAILY 05/13/21 01/31/25 History mcg chewable tablet pyridoxine (vitamin B6) 100 mg 100 mg PO DAILY 05/13/21 01/31/25 History tablet magnesium oxide 400 mg (241.3 mg 250 mg PO QAM 06/06/21 01/31/25 History magnesium) tablet blood sugar diagnostic #360 ea 10/31/22 01/31/25 Rx empagliflozin 10 mg tablet 10 mg PO DAILY #30 tabs 10/26/23 01/31/25 Rx (Jardiance) alendronate 70 mg tablet 70 mg PO WEEKLY #12 tabs 12/12/23 01/31/25 Rx atorvastatin 10 mg tablet 10 mg PO QAM #90 tabs 06/10/24 01/31/25 Rx ascorbate calcium (vitamin C) 500 500 mg PO DAILY 06/20/24 01/31/25 History mg tablet aspirin 81 mg tablet,delayed 81 mg PO DAILY 06/20/24 01/31/25 History release folic acid 800 mcg tablet 0.8 mg PO DAILY 06/20/24 01/31/25 History calcitriol 0.25 mcg capsule 0.25 mcg PO 4XW #16 caps 08/23/24 01/31/25 Rx pen needle, diabetic 32 gauge x #360 ea 09/11/24 01/31/25 Rx 5/32 (BD Muriel 2nd Gen Pen Needle) blood-glucose sensor ([place] G7 #3 ea 09/13/24 01/31/25 Rx Sensor device) potassium chloride 10 mEq 10 meq PO DAILY #90 caps 09/30/24 01/31/25 Rx capsule,extended release insulin glargine 100 unit/mL (3 See Rx Instructions .Route 10/25/24 01/31/25 Rx mL) subcutaneous pen (Lantus .COMPLEX #15 mL Solostar U-100 Insulin) carvedilol 6.25 mg tablet 6.25 mg PO Q12H #60 tabs 12/31/24 01/31/25 Rx albuterol sulfate 2.5 mg/3 mL 2.5 mg inhalation Q8H PRN 01/16/25 01/31/25 History (0.083 %) solution for nebulization shortness of breath or wheezing ferrous sulfate 325 mg (65 mg 325 mg PO DAILY 01/16/25 01/31/25 History iron) tablet (Leonard-Time) insulin lispro 100 unit/mL 3 unit subcut TID 01/16/25 01/31/25 History subcutaneous pen (Humalog KwikPen (U-100) Insulin) lanolin alcohols-mineral 1 applic topical DAILY 01/16/25 01/31/25 History oil-w.petrolatum-ceresin topical cream midodrine 10 mg tablet 10 mg PO TID dizziness or vertigo 01/16/25 01/31/25 History pantoprazole 40 mg tablet,delayed 40 mg PO BID 01/16/25 01/31/25 History release sennosides 8.6 mg tablet (senna) 8.6 mg PO DAILY PRN constipation 01/16/25 01/31/25 History bumetanide 1 mg tablet 1 mg PO DAILY #30 tabs 01/25/25 01/31/25 Rx levofloxacin 750 mg tablet 750 mg PO Q48H 01/31/25 01/31/25 History linezolid 600 mg tablet 600 mg PO Q12HR #1 tablet 01/31/25 01/31/25 Rx spironolactone 25 mg tablet 50 mg PO QAM 01/31/25 01/31/25 History Allergies Allergy/AdvReac Type Severity Reaction Status Date / Time codeine AdvReac Unknown Headache Verified 01/31/25 18:20 Vital Signs Vital Signs - 24 hr 01/31/25 17:56 Temperature 98.6 F Pulse Rate 87 Respiratory Rate 16 Blood Pressure 94/50 L Pulse Oximetry 100 Exam Narrative: General: In no acute distress, well nourished Head: atraumatic, no encephalopathy Eyes: PERRLA, sclera clear ENT: moist mucous membranes, nasal passages clear Neck: supple, no JVD, no adenopathy, trachea midline Cardiac: Normal S1 and S2. No murmur, gallops or friction rubs, peripheral pulses intact. Respiratory: Lungs clear to auscultation, no adventitious lung sounds, currently on 2L NC Gastrointestinal: taunt, distended, non-tender, normoactive bowel sounds. anasarca present : voiding without difficulty. Extremities: moves all extremities well, bilateral lower extremity edema Skin: Pressure injuries to right heel and buttocks with eschar noted to wound bed, bleeding edges Neuro: Alert and oriented x4, cranial nerves intact, no neuro deficits. Psych: normal mood, normal affect, interactive Assessment and Plan Assessment and plan (1) Pleural effusion: Code(s): J90 - Pleural effusion, not elsewhere classified Status: Acute Assessment and Plan: Likely secondary to worsening cirrhosis of the liver * NPO after midnight * Thoracentesis ordered for the morning (2) Alcoholic cirrhosis of liver: Qualifiers: Ascites presence: without ascites Qualified Code(s): K70.30 - Alcoholic cirrhosis of liver without ascites Code(s): K70.30 - Alcoholic cirrhosis of liver without ascites Status: Chronic Assessment and Plan: * Meld score 17 currently * Plan for thoracentesis tomorrow morning * Continue NPO status * Transfer initiated to [facility] for hepatobiliary services, Dr. Botello accepting. Wait time for medical bed at [facility] is around 1 week (3) Anasarca: Code(s): R60.1 - Generalized edema Status: Acute Assessment and Plan: see above plan of care (4) Chronic diastolic CHF (congestive heart failure): Code(s): I50.32 - Chronic diastolic (congestive) heart failure Status: Acute Assessment and Plan: * Last echocardiogram showed normal LV systolic function with an estimated EF of 60-65%, grade 2 diastolic dysfunction * Continue Bumex and spironolactone (5) Chronic kidney disease, stage 3: Qualifiers: Chronic kidney disease stage 3 subtype: stage 3b (GFR 30-44) Qualified Code(s): N18.32 - Chronic kidney disease, stage 3b Code(s): N18.30 - Chronic kidney disease, stage 3 unspecified Status: Chronic Assessment and Plan: * Creatinine 2.0, EGFR 25 * Baseline creatinine 1.52-1.82 * Continue to trend (6) Orthostatic hypotension: Code(s): I95.1 - Orthostatic hypotension Status: Acute Assessment and Plan: * Blood pressures ranging 107/61 to 113/56 * continue midodrine (7) Portal venous hypertension: Code(s): K76.6 - Portal hypertension Status: Acute Assessment and Plan: * continue spironolactone (8) Insulin dependent type 2 diabetes mellitus: Code(s): E11.9 - Type 2 diabetes mellitus without complications; Z79.4 - technician terminal and repeater (current) use of insulin Status: Chronic Assessment and Plan: * Blood sugars ranging * Hgb A1C 5.5 * Accu checks ACHS * High dose SSI ordered * Continue Lantus 15 units * Continue Jardiance * hypoglycemic protocol in place * Diabetic diet ordered (9) Chronic anemia: Code(s): D64.9 - Anemia, unspecified Status: Chronic Assessment and Plan: Likely secondary to a combination of cirrhosis of the liver and CKD * Hgb 7.6 * continue ferrous sulfate (10) Hematuria: Code(s): R31.9 - Hematuria, unspecified Status: Acute Assessment and Plan: Pleitez catheter placed at [facility]. On arrival to [facility] she was noted to have red tinged urine * Continue pleitez care * Aspirin on hold * INR ordered for the morning * Urology consulted Quality VTE Prophylaxis VTE prophylaxis: mechanical ordered Hospitalist MIPS Advance Care Plan I have confirmed that the patient's Advanced Care Plan is present, code status is documented, or surrogate decision maker is listed in patient medical record.: Yes Medication Reconciliation I have utilized all available resources to obtain, update and review the patients current medications (includes all prescriptions, OTC, herbals, cannabis, and nutritional supplements).: Yes
[2025-01-31 18:13] VITALS: O2SAT 98
[2025-01-31 18:35] VITALS: BMI 32.3
--- NOTE | 2025-01-31 18:52 | PC.NURSE ---
Spoke to Rhianna with [facility] transfer [facility] and gave updated report on patient. Number for transfer center is [phone].
[2025-01-31] MEDS: MIDODRINE HCL 10 MG TABLET PO (18:56)
[2025-01-31 20:00] VITALS: BP 108/49; PULSE 77; RESP 19; TEMP 36.1; O2SAT 95
[2025-01-31 21:01] VITALS: PULSE 77
[2025-01-31] MEDS: carvediloL 6.25 MG TABLET PO (21:01)
[2025-01-31] MEDS: PANTOPRAZOLE 40 MG TABLET PO (21:01)
[2025-01-31] MEDS: LINEZOLID 600 MG TABLET PO (21:02)
[2025-01-31] MEDS: methocarbamoL 500 MG TABLET PO (21:50)
[2025-01-31 22:48] LABS: Glucose Point of Care 148 mg/dl (65-105)
[2025-02-01] VITALS (7 sets, daily range): BP systolic 100–113; BP diastolic 45–63; PULSE 69–80; RESP 18–20; TEMP 36.2–36.8; O2SAT 92–98
[2025-02-01] MEDS: methocarbamoL 500 MG TABLET PO ×3 (06:15→21:26)
[2025-02-01 06:24] LABS: Basophils Percent Auto 0.7 % (0.2-1.2); Eosinophils Absolute Auto 0.4 K/mm3 (0-0.3); Eosinophils Percent Auto 6.6 % (0-4.4); Hematocrit 25.7 % (37.0-47.0); Immature Granulocyte Absolute 0.03 K/mm3 (0.00-0.031); Immature Granulocyte Percent A 0.5 % (0-0.5); Lymphocytes Absolute Auto 0.57 K/mm3 (0.9-3.2); Lymphocytes Percent Auto 9.7 % (18.3-44.2); Mean Corpuscular HGB Conc 31.1 g/dl (32-36); Mean Corpuscular Hemoglobin 31.3 pg (26-34); Mean Corpuscular Volume 100.4 fl (80-100); Mean Platelet Volume 10.6 fl (7.4-10.4); Monocytes Absolute Auto 0.6 K/mm3 (0.1-0.6); Monocytes Percent Auto 9.7 % (2.6-8.5); Neutrophils Absolute Auto 4.3 K/mm3 (1.3-6.7); Neutrophils Percent Auto 72.8 % (45.5-73.1); Platelet Count Result 217 k/mm3 (150-375); Red Blood Count 2.56 M/mm3 (4.2-5.4); Red Cell Distribution Width 16.2 % (11.5-14.5); White Blood Count 5.9 K/mm3 (4.5-10.0)
[2025-02-01 06:32] LABS: Alanine Aminotransferase 13 U/L (6-35); Albumin Level 4.1 g/dL (3.5-5.1); Alkaline Phosphatase 241 U/L (38-126); Anion Gap 12 mmol/L (4-12); Aspartate Amino Transferase 26 U/L (14-36); Bilirubin,Total 1.6 mg/dL (0.2-1.3); Blood Urea Nitrogen 26 mg/dL (7-17); Calcium 9.2 mg/dL (8.4-10.2); Carbon Dioxide 24 mmol/L (22-30); Chloride 95 mmol/L (98-107); Estimated CRCL calculation 28 ml/min; Estimated Glomerular Filt Rate 26; Glucose 106 mg/dL (65-110); Magnesium 2.1 mg/dL (1.6-2.3); Potassium 4.5 mmol/L (3.4-5.0); Sodium 131 mmol/L (137-145)
[2025-02-01 06:55] LABS: INR 1.4; Prothrombin Time 17.1 Seconds (11.1-14.7)
[2025-02-01 07:43] LABS: Glucose Point of Care 89 mg/dl (65-105)
--- NOTE | 2025-02-01 11:26 | PCOTNOTE ---
Attempted to see patient for OT evaluation this AM. Patient refusing at this time stating she just wants to rest today, hasn't eaten, and is in pain. She requests that therapy check back on her tomorrow. Will continue to attempt.
[2025-02-01 11:27] LABS: Glucose Point of Care 96 mg/dl (65-105)
[2025-02-01] MEDS: ASCORBIC ACID 500 MG TABLET PO (11:36)
[2025-02-01] MEDS: MIDODRINE HCL 10 MG TABLET PO ×2 (11:36→16:44)
[2025-02-01] MEDS: SPIRONOLACTONE 50 MG TABLET PO (11:36)
[2025-02-01] MEDS: EMPAGLIFLOZIN 10 MG TABLET PO (11:36)
[2025-02-01] MEDS: FERROUS SULFATE 325 MG TABLET DR BY MOUTH (11:36)
[2025-02-01] MEDS: FOLIC ACID 0.4 MG TABLET 0.8 MG PO (11:36)
[2025-02-01] MEDS: THIAMINE HCL 100 MG TABLET PO (11:36)
[2025-02-01] MEDS: THERAPEUTIC MULTIVITAMINS/MINERALS TAB (*BKC) 1 TABLET PO (11:37)
[2025-02-01] MEDS: MAGNESIUM OXIDE 200 MG TABLET PO (11:37)
[2025-02-01] MEDS: ATORVASTATIN 10 MG TABLET PO (11:37)
[2025-02-01] MEDS: LINEZOLID 600 MG TABLET PO ×2 (11:37→21:25)
[2025-02-01] MEDS: PANTOPRAZOLE 40 MG TABLET PO ×2 (11:37→21:26)
[2025-02-01] MEDS: carvediloL 6.25 MG TABLET PO ×2 (11:37→21:25)
--- NOTE | 2025-02-01 12:04 | P.PNIM_ITS ---
Progress Note: A&P Assessment and Plan (1) Pleural effusion: Code(s): J90 - Pleural effusion, not elsewhere classified Status: Acute Assessment and Plan: Likely secondary to worsening cirrhosis of the liver * NPO after midnight * Thoracentesis ordered for the morning (2) Alcoholic cirrhosis of liver: Qualifiers: Ascites presence: without ascites Qualified Code(s): K70.30 - Alcoholic cirrhosis of liver without ascites Code(s): K70.30 - Alcoholic cirrhosis of liver without ascites Status: Chronic Assessment and Plan: * Meld score 17 currently * Plan for thoracentesis tomorrow morning * Continue NPO status * Transfer initiated to [facility] for hepatobiliary services, Dr. Botello accepting. Wait time for medical bed at [place] is around 1 week (3) Anasarca: Code(s): R60.1 - Generalized edema Status: Acute Assessment and Plan: see above plan of care (4) Chronic diastolic CHF (congestive heart failure): Code(s): I50.32 - Chronic diastolic (congestive) heart failure Status: Acute Assessment and Plan: * Continue Bumex (5) Chronic kidney disease, stage 3: Qualifiers: Chronic kidney disease stage 3 subtype: stage 3b (GFR 30-44) Qualified Code(s): N18.32 - Chronic kidney disease, stage 3b Code(s): N18.30 - Chronic kidney disease, stage 3 unspecified Status: Chronic Assessment and Plan: * Currently at baseline (6) Orthostatic hypotension: Code(s): I95.1 - Orthostatic hypotension Status: Acute Assessment and Plan: * continue midodrine (7) Portal venous hypertension: Code(s): K76.6 - Portal hypertension Status: Acute Assessment and Plan: * continue spironolactone (8) Insulin dependent type 2 diabetes mellitus: Code(s): E11.9 - Type 2 diabetes mellitus without complications; Z79.4 - care home (current) use of insulin Status: Chronic Assessment and Plan: * Blood sugars ranging * Hgb A1C * Accu checks ACHS * High dose SSI ordered * Continue Lantus * Continue Jardiance * hypoglycemic protocol in place * Diabetic diet ordered (9) Chronic anemia: Code(s): D64.9 - Anemia, unspecified Status: Chronic Assessment and Plan: Likely secondary to a combination of cirrhosis of the liver and CKD * continue ferrous sulfate (10) Hematuria: Code(s): R31.9 - Hematuria, unspecified Status: Acute Assessment and Plan: Pleitez catheter placed at [facility]. On arrival to [place] she was noted to have red tinged urine * Continue pleitez care * Aspirin on hold * INR ordered for the morning Subjective Date/time seen: 02/01/25 12:04 Review of Systems Review of Systems: All systems reviewed & are unremarkable except as noted in HPI and below Objective Data Vital Signs Vital Signs: Vital Signs - 24 hr 01/31/25 17:56 01/31/25 18:13 01/31/25 20:00 Temperature 98.6 F Pulse Rate 87 Respiratory Rate 16 Blood Pressure 94/50 L Pulse Oximetry 100 98 Oxygen Delivery Room Air Room Air 01/31/25 20:00 01/31/25 21:01 02/01/25 00:00 Temperature 97 F L 97.1 F L Pulse Rate 77 77 70 Respiratory Rate 19 18 Blood Pressure 108/49 L 100/46 L Pulse Oximetry 95 92 Oxygen Delivery 02/01/25 04:00 02/01/25 08:00 02/01/25 08:00 Temperature 97.2 F L 97.7 F Pulse Rate 69 73 Respiratory Rate 18 20 Blood Pressure 101/45 L 113/56 L Pulse Oximetry 93 98 Oxygen Delivery Room Air Intake/Output Intake/Output: Intake & Output 01/29/25 01/30/25 01/31/25 02/01/25 23:59 23:59 23:59 23:59 Intake Total 0 Output Total 1300 Balance -1300 Meds/Results Medications: Active Medications Generic Name Dose Route Start Last Admin Trade Name Freq PRN Reason Stop Dose Admin Acetaminophen 650 mg 01/31/25 18:13 Acetaminophen 325 Mg Tablet PO Q4H PRN Mild Pain (1-3) or Fever Albuterol 2.5 mg 01/31/25 18:16 Albuterol Sulfate Neb 2.5 Mg/3 Ml Inh INHALATION Q8HRT PRN shortness of breath or wheezing Alendronate Sodium 70 mg 02/04/25 09:00 Alendronate Sodium 70 Mg Tablet PO WEEKLY NEIL Ascorbic Acid 500 mg 02/01/25 09:00 02/01/25 11:36 Ascorbic Acid 500 Mg Tablet PO 500 mg DAILY NEIL Administration Atorvastatin Calcium 10 mg 02/01/25 09:00 02/01/25 11:37 Atorvastatin 10 Mg Tablet PO 10 mg QAM NEIL Administration Calcitriol 0.25 mcg 02/02/25 09:00 Calcitriol 0.25 Mcg Capsule PO [email or web address] NEIL Carvedilol 6.25 mg 01/31/25 21:00 02/01/25 11:37 Carvedilol 6.25 Mg Tablet PO 6.25 mg Q12H NEIL Administration Dextrose 12.5 gm 01/31/25 18:13 Dextrose 50% 25 Gm/50 Ml Syringe IV PUSH PRN PRN Hypoglycemia Protocol Empagliflozin 10 mg 02/01/25 09:00 02/01/25 11:36 Empagliflozin 10 Mg Tablet PO 10 mg DAILY NEIL Administration Ferrous Sulfate 325 mg 02/01/25 09:00 02/01/25 11:36 Ferrous Sulfate [address] BY MOUTH 325 mg DAILY NEIL Administration Fluticasone Propionate 1 spray 01/31/25 18:16 Fluticasone Propionate 0.05% Na Spr 16 Gm Btl (*Bkc) NASAL DAILY PRN allergies Folic Acid 0.8 mg 02/01/25 09:00 02/01/25 11:36 Folic Acid 0.4 Mg Tablet PO 0.8 mg QAM NEIL Administration Glucagon 1 mg 01/31/25 18:13 Glucagon For Inj 1 Mg Vial IM PRN PRN Hypoglycemia Protocol Glucose 15 gm 01/31/25 18:13 Glucose Oral Gel 15 Gm Of Glucse In 37.5 Gm Tube PO PRN PRN Hypoglycemia Protocol Dextrose 1,000 mls @ 100 mls/hr 01/31/25 18:13 Dextrose 5% 1,000 Ml IVPB PRN PRN Hypoglycemia Protocol Insulin Aspart 4 - 8 units 02/01/25 08:00 02/01/25 11:37 Insulin Aspart (*Bkc) 100 Units/Ml SUB-Q Not Given TIDWM NEIL Protocol Insulin Aspart 2 - 4 units 01/31/25 21:00 01/31/25 20:15 Insulin Aspart (*Bkc) 100 Units/Ml SUB-Q Not Given HS [facility] Protocol Insulin Glargine 15 units 01/31/25 21:00 01/31/25 20:44 Insulin Glargine (*Bkc) 100 Units/Ml SUB-Q Not Given [facility] Levofloxacin 750 mg 02/01/25 14:00 Levofloxacin 750 Mg Tablet PO Q48H [facility] Linezolid 600 mg 01/31/25 21:00 02/01/25 11:37 Linezolid 600 Mg Tablet PO 600 mg Q12HR [facility] Administration Magnesium Oxide 200 mg 02/01/25 09:00 02/01/25 11:37 Magnesium Oxide 200 Mg Tablet PO 200 mg QAM [facility] Administration Methocarbamol 500 mg 01/31/25 22:00 02/01/25 06:15 Methocarbamol 500 Mg Tablet PO 500 mg Q8HR [facility] Administration Midodrine 10 mg 01/31/25 18:20 02/01/25 11:36 Midodrine Hcl 10 Mg Tablet PO 10 mg TID [facility] Administration Multivitamins/Calcium 1 tablet 02/01/25 09:00 02/01/25 11:37 Therapeutic Multivitamins/Minerals Tab (*Bkc) PO 1 tablet DAILY NEIL Administration Ondansetron HCl 4 mg 01/31/25 18:13 Ondansetron Inj 4 Mg/2 Ml Vial IV PUSH Q6H PRN Nausea And Vomiting Pantoprazole Sodium 40 mg 01/31/25 21:00 02/01/25 11:37 Pantoprazole 40 Mg Tablet PO 40 mg Q12HR [facility] Administration Senna 8.6 mg 01/31/25 18:16 Sennosides 8.6 Mg Tablet PO DAILY PRN constipation Spironolactone 50 mg 02/01/25 09:00 02/01/25 11:36 Spironolactone 50 Mg Tablet PO 50 mg QAM [facility] Administration Thiamine HCl 100 mg 02/01/25 09:00 02/01/25 11:36 Thiamine Hcl 100 Mg Tablet PO 100 mg QAM [facility] Administration Radiology Results: ITS Impressions Chest X-Ray 02/01/25 09:27 IMPRESSION: 1. Decrease small right pleural effusion with associated basilar atelectasis and/or pneumonia post right thoracentesis. Thoracentesis Ultrasound 02/01/25 09:56 IMPRESSION: 1. Successful ultrasound-guided thoracentesis yielding 1100 mL of clear yellow fluid. Labs Labs: Laboratory Results - last 24 hr 01/31/25 02/01/25 02/01/25 19:41 06:16 07:34 WBC 5.9 RBC 2.56 L Hgb 8.0 L Hct 25.7 L MCV 100.4 H MCH 31.3 MCHC 31.1 L RDW 16.2 H Plt Count 217 MPV 10.6 H Immature Gran % (Auto) 0.5 Neut % (Auto) 72.8 Lymph % (Auto) 9.7 L [place] % (Auto) 9.7 H Eos % (Auto) 6.6 H Baso % (Auto) 0.7 Lymph # (Auto) 0.57 L [place] # (Auto) 0.6 Eos # (Auto) 0.4 H Baso # (Auto) 0.0 Abs Immat Gran (auto) 0.03 Absolute Neuts (auto) 4.3 Absolute Nucleated RBC 0.000 Nucleated RBC % 0.0 PT 17.1 H INR 1.4 Sodium 131 L Potassium 4.5 Chloride 95 L Carbon Dioxide 24 Anion Gap 12 BUN 26 H Creatinine 1.88 H Estim Creat Clear Calc 28 Estimated GFR 26 L Glucose 106 POC Capillary Glucose 148 H 89 Calcium 9.2 Magnesium 2.1 Total Bilirubin 1.6 H AST 26 ALT 13 Alkaline Phosphatase 241 H Total Protein 7.0 Albumin 4.1 02/01/25 11:22 WBC RBC Hgb Hct MCV MCH MCHC RDW Plt Count MPV Immature Gran % (Auto) Neut % (Auto) Lymph % (Auto) [place] % (Auto) Eos % (Auto) Baso % (Auto) Lymph # (Auto) [place] # (Auto) Eos # (Auto) Baso # (Auto) Abs Immat Gran (auto) Absolute Neuts (auto) Absolute Nucleated RBC Nucleated RBC % PT INR Sodium Potassium Chloride Carbon Dioxide Anion Gap BUN Creatinine Estim Creat Clear Calc Estimated GFR Glucose POC Capillary Glucose 96 Calcium Magnesium Total Bilirubin AST ALT Alkaline Phosphatase Total Protein Albumin
[2025-02-01] MEDS: levoFLOXacin 750 MG TABLET PO (13:01)
--- NOTE | 2025-02-01 14:05 | PCPTNOTE ---
Attempted PT evaluation, pt refused stating she is too bloated and just became comfortable. Nurse aware. Will follow.
--- NOTE | 2025-02-01 15:27 | PM.IMPN ---
Progress Note: A&P Assessment and Plan (1) Pleural effusion: Code(s): J90 - Pleural effusion, not elsewhere classified Status: Acute Assessment and Plan: Likely secondary to worsening cirrhosis of the liver NPO after midnight Thoracentesis ordered for the morning 02/01 Thoracentesis this morning yielded 1100 mL of pleural fluid Will continue to monitor for recurrence (2) Alcoholic cirrhosis of liver: Qualifiers: Ascites presence: without ascites Qualified Code(s): K70.30 - Alcoholic cirrhosis of liver without ascites Code(s): K70.30 - Alcoholic cirrhosis of liver without ascites Status: Chronic Assessment and Plan: Meld score 17 currently Plan for thoracentesis tomorrow morning Continue NPO status Transfer initiated to [facility] for hepatobiliary services, Dr. Botello accepting. Wait time for medical bed at [place] is around 1 week 02/01 Post thoracentesis yielding 1100 mL of pleural fluid Patient can advance diet back to a diabetic diet Still awaiting transfer to [place] for hepatobiliary service (3) Anasarca: Code(s): R60.1 - Generalized edema Status: Acute Assessment and Plan: see above plan of care (4) Chronic diastolic CHF (congestive heart failure): Code(s): I50.32 - Chronic diastolic (congestive) heart failure Status: Acute Assessment and Plan: Last echocardiogram showed normal LV systolic function with an estimated EF of 60-65%, grade 2 diastolic dysfunction Continue Bumex and spironolactone 02/01 No change to current treatment plan (5) Chronic kidney disease, stage 3: Qualifiers: Chronic kidney disease stage 3 subtype: stage 3b (GFR 30-44) Qualified Code(s): N18.32 - Chronic kidney disease, stage 3b Code(s): N18.30 - Chronic kidney disease, stage 3 unspecified Status: Chronic Assessment and Plan: Creatinine 2.0, EGFR 25 Baseline creatinine 1.52-1.82 Continue to trend 12/04 Creatinine today 1.88 Near baseline Continue to trend (6) Orthostatic hypotension: Code(s): I95.1 - Orthostatic hypotension Status: Acute Assessment and Plan: Blood pressures ranging 107/61 to 113/56 continue midodrine 02/01 No change to current treatment plan (7) Portal venous hypertension: Code(s): K76.6 - Portal hypertension Status: Acute Assessment and Plan: continue spironolactone 02/01 No change to current treatment plan (8) Insulin dependent type 2 diabetes mellitus: Code(s): E11.9 - Type 2 diabetes mellitus without complications; Z79.4 - terminal carman (current) use of insulin Status: Chronic Assessment and Plan: Blood sugars ranging Hgb A1C 5.5 Accu checks ACHS High dose SSI ordered Continue Lantus 15 units Continue Jardiance hypoglycemic protocol in place Diabetic diet ordered 02/01 No change to current treatment plan (9) Chronic anemia: Code(s): D64.9 - Anemia, unspecified Status: Chronic Assessment and Plan: Likely secondary to a combination of cirrhosis of the liver and CKD Hgb 7.6 continue ferrous sulfate 02/01 Hemoglobin 8.0 No change to current treatment plan (10) Hematuria: Code(s): R31.9 - Hematuria, unspecified Status: Acute Assessment and Plan: Pleitez catheter placed at [facility]. On arrival to [place] she was noted to have red tinged urine Continue pleitez care Aspirin on hold INR ordered for the morning Urology consulted 02/01 Bladder scan yielding 106 mL Urine still dark red, no clots Urology to follow Continue to hold aspirin (11) Decubitus ulcer: Code(s): L89.90 - Pressure ulcer of unspecified site, unspecified stage Status: Acute Assessment and Plan: Continue daily dressing changes with santyl to eschar and silver wound gel to surrounding tissue. Cover with dressing daily Wound nurse consult placed Time Spent With Patient Time with patient: 25 - 35 minutes Subjective Date/time seen: 02/01/25 15:27 Interval history: Interval history: This is a 69 year old female with a significant past medical history of CHF, type 2 DM, alcoholic cirrhosis of the liver with a current Meld score of 17, CKD stage 3a who presented to [facility] from [facility] for evaluation of pleural effusion. Prior to her admission to [facility] program, patient was initially seen and treated at [place] for evaluation after a ground level fall and hypotension. She was reporting knee pain after the fall and came in to [facility] for additional work up. Workup in the hospital at that time included an ultrasound of both lower extremities which were negative for DVT, knee x-ray showed a medial tibial plateau fracture without significant depression, CT of the abdomen and pelvis showed prominent common bile duct with a 4 mm stone in the distal common bile duct, multiple calcifications identified within the ivan hepaticus on prior studies without definitive ductal obstruction. Knee CT was negative for fracture. GI and General surgery was consulted at that time and treating and decided to treat conservatively as she was not complaining gallbladder issues and this was likely an incidental finding. She started having increased work of breathing and we continue to diurese her however she didn't show signs of improvement. A CT of the chest, abdomen, pelvis was obtained and shown a moderate size pleural effusion likely secondary to her cirrhosis of the liver. She had a thoracentesis on 01/20/2025 yielding 1 L of pleural fluid. Since that time she continued to improve and was sent out on 01/25/2025 to [facility] for further rehab needs. Patient was doing well with her therapy and then started getting worsening short of breath and a chest x-ray shown worsening pleural effusion on the right lung with anasarca present. Her work of breathing worsened overnight requiring oxygen. She was then transferred back to [facility] with plans for a therapeutic thoracentesis and plans to transfer patient to tertiary hospital for hepatobiliary services. I spoke with [place] transfer center at 1820 p.m. and re-initiated transfer to [facility] with Dr. Botlelo accepting. Wait time for medical bed at [place] is around 1 week. Subjective: Patient had thoracentesis today yielding 1100 mL pleural fluid. She states she feels much better and her breathing is not labored. She is currently on room air. She is still having hematuria and this was likely due to traumatic insertion of the Pleitez catheter yesterday. Urine output has been adequate. Labs reviewed. Review of Systems Review of Systems: All systems reviewed & are unremarkable except as noted in HPI and below Exam Narrative: General: In no acute distress, well nourished Cardiac: Normal S1 and S2. No murmur, gallops or friction rubs, peripheral pulses intact. Respiratory: Lungs clear to auscultation, no adventitious lung sounds, currently on room air Gastrointestinal: taunt, distended, non-tender, normoactive bowel sounds. anasarca present : Hematuria noted in Pleitez catheter bag, no clots observed Extremities: moves all extremities well, bilateral lower extremity edema Skin: Pressure injuries to right heel and buttocks with eschar noted to wound bed, bleeding edges Neuro: Alert and oriented x4 Objective Data Vital Signs Vital Signs: Vital Signs - 24 hr 01/31/25 17:56 01/31/25 18:13 01/31/25 20:00 Temperature 98.6 F Pulse Rate 87 Respiratory Rate 16 Blood Pressure 94/50 L Pulse Oximetry 100 98 Oxygen Delivery Room Air Room Air 01/31/25 20:00 01/31/25 21:01 02/01/25 00:00 Temperature 97 F L 97.1 F L Pulse Rate 77 77 70 Respiratory Rate 19 18 Blood Pressure 108/49 L 100/46 L Pulse Oximetry 95 92 Oxygen Delivery 02/01/25 04:00 02/01/25 08:00 02/01/25 08:00 Temperature 97.2 F L 97.7 F Pulse Rate 69 73 Respiratory Rate 18 20 Blood Pressure 101/45 L 113/56 L Pulse Oximetry 93 98 Oxygen Delivery Room Air 02/01/25 12:00 Temperature 98.1 F Pulse Rate 77 Respiratory Rate 20 Blood Pressure 107/61 Pulse Oximetry 94 Oxygen Delivery Intake/Output Intake/Output: Intake & Output 01/29/25 01/30/25 01/31/25 02/01/25 23:59 23:59 23:59 23:59 Intake Total 480 Output Total 1450 Balance -970 Meds/Results Medications: Active Medications Generic Name Dose Route Start Last Admin Trade Name Freq PRN Reason Stop Dose Admin Acetaminophen 650 mg 01/31/25 18:13 Acetaminophen 325 Mg Tablet PO Q4H PRN Mild Pain (1-3) or Fever Albuterol 2.5 mg 01/31/25 18:16 Albuterol Sulfate Neb 2.5 Mg/3 Ml Inh INHALATION Q8HRT PRN shortness of breath or wheezing Alendronate Sodium 70 mg 02/04/25 09:00 Alendronate Sodium 70 Mg Tablet PO WEEKLY [facility] Ascorbic Acid 500 mg 02/01/25 09:00 02/01/25 11:36 Ascorbic Acid 500 Mg Tablet PO 500 mg DAILY NEIL Administration Atorvastatin Calcium 10 mg 02/01/25 09:00 02/01/25 11:37 Atorvastatin 10 Mg Tablet PO 10 mg QAM [facility] Administration Bumetanide 1 mg 02/02/25 09:00 Bumetanide 1 Mg Tablet PO DAILY [facility] Calcitriol 0.25 mcg 02/02/25 09:00 Calcitriol 0.25 Mcg Capsule PO [email or web address] [facility] Carvedilol 6.25 mg 01/31/25 21:00 02/01/25 11:37 Carvedilol 6.25 Mg Tablet PO 6.25 mg Q12H NEIL Administration Collagenase 1 applic 02/02/25 09:00 Collagenase Oint 30 Gm Tube TOPICAL QAM NEIL Dextrose 12.5 gm 01/31/25 18:13 Dextrose 50% 25 Gm/50 Ml Syringe IV PUSH PRN PRN Hypoglycemia Protocol Empagliflozin 10 mg 02/01/25 09:00 02/01/25 11:36 Empagliflozin 10 Mg Tablet PO 10 mg DAILY NEIL Administration Ferrous Sulfate 325 mg 02/01/25 09:00 02/01/25 11:36 Ferrous Sulfate [address] BY MOUTH 325 mg DAILY NEIL Administration Fluticasone Propionate 1 spray 01/31/25 18:16 Fluticasone Propionate 0.05% Na Spr 16 Gm Btl (*Bkc) NASAL DAILY PRN allergies Folic Acid 0.8 mg 02/01/25 09:00 02/01/25 11:36 Folic Acid 0.4 Mg Tablet PO 0.8 mg QAM NEIL Administration Glucagon 1 mg 01/31/25 18:13 Glucagon For Inj 1 Mg Vial IM PRN PRN Hypoglycemia Protocol Glucose 15 gm 01/31/25 18:13 Glucose Oral Gel 15 Gm Of Glucse In 37.5 Gm Tube PO PRN PRN Hypoglycemia Protocol Dextrose 1,000 mls @ 100 mls/hr 01/31/25 18:13 Dextrose 5% 1,000 Ml IVPB PRN PRN Hypoglycemia Protocol Insulin Aspart 4 - 8 units 02/01/25 08:00 02/01/25 11:37 Insulin Aspart (*Bkc) 100 Units/Ml SUB-Q Not Given TIDWM [facility] Protocol Insulin Aspart 2 - 4 units 01/31/25 21:00 01/31/25 20:15 Insulin Aspart (*Bkc) 100 Units/Ml SUB-Q Not Given HS [facility] Protocol Insulin Glargine 15 units 01/31/25 21:00 01/31/25 20:44 Insulin Glargine (*Bkc) 100 Units/Ml SUB-Q Not Given HS [facility] Levofloxacin 750 mg 02/01/25 14:00 02/01/25 13:01 Levofloxacin 750 Mg Tablet PO 750 mg Q48H NEIL Administration Linezolid 600 mg 01/31/25 21:00 02/01/25 11:37 Linezolid 600 Mg Tablet PO 600 mg Q12HR NEIL Administration Magnesium Oxide 200 mg 02/01/25 09:00 02/01/25 11:37 Magnesium Oxide 200 Mg Tablet PO 200 mg QAM NEIL Administration Methocarbamol 500 mg 01/31/25 22:00 02/01/25 13:01 Methocarbamol 500 Mg Tablet PO 500 mg Q8HR [facility] Administration Midodrine 10 mg 01/31/25 18:20 02/01/25 11:36 Midodrine Hcl 10 Mg Tablet PO 10 mg TID NEIL Administration Multivitamins/Calcium 1 tablet 02/01/25 09:00 02/01/25 11:37 Therapeutic Multivitamins/Minerals Tab (*Bkc) PO 1 tablet DAILY NEIL Administration Ondansetron HCl 4 mg 01/31/25 18:13 Ondansetron Inj 4 Mg/2 Ml Vial IV PUSH Q6H PRN Nausea And Vomiting Pantoprazole Sodium 40 mg 01/31/25 21:00 02/01/25 11:37 Pantoprazole 40 Mg Tablet PO 40 mg Q12HR [facility] Administration Senna 8.6 mg 01/31/25 18:16 Sennosides 8.6 Mg Tablet PO DAILY PRN constipation Spironolactone 50 mg 02/01/25 09:00 02/01/25 11:36 Spironolactone 50 Mg Tablet PO 50 mg QAM [facility] Administration Thiamine HCl 100 mg 02/01/25 09:00 02/01/25 11:36 Thiamine Hcl 100 Mg Tablet PO 100 mg QAM [facility] Administration Radiology Results: ITS Impressions Chest X-Ray 02/01/25 09:27 IMPRESSION: 1. Decrease small right pleural effusion with associated basilar atelectasis and/or pneumonia post right thoracentesis. Thoracentesis Ultrasound 02/01/25 09:56 IMPRESSION: 1. Successful ultrasound-guided thoracentesis yielding 1100 mL of clear yellow fluid. Labs Labs: Laboratory Results - last 24 hr 01/31/25 02/01/25 02/01/25 19:41 06:16 07:34 WBC 5.9 RBC 2.56 L Hgb 8.0 L Hct 25.7 L MCV 100.4 H MCH 31.3 MCHC 31.1 L RDW 16.2 H Plt Count 217 MPV 10.6 H Immature Gran % (Auto) 0.5 Neut % (Auto) 72.8 Lymph % (Auto) 9.7 L [place] % (Auto) 9.7 H Eos % (Auto) 6.6 H Baso % (Auto) 0.7 Lymph # (Auto) 0.57 L [place] # (Auto) 0.6 Eos # (Auto) 0.4 H Baso # (Auto) 0.0 Abs Immat Gran (auto) 0.03 Absolute Neuts (auto) 4.3 Absolute Nucleated RBC 0.000 Nucleated RBC % 0.0 PT 17.1 H INR 1.4 Sodium 131 L Potassium 4.5 Chloride 95 L Carbon Dioxide 24 Anion Gap 12 BUN 26 H Creatinine 1.88 H Estim Creat Clear Calc 28 Estimated GFR 26 L Glucose 106 POC Capillary Glucose 148 H 89 Calcium 9.2 Magnesium 2.1 Total Bilirubin 1.6 H AST 26 ALT 13 Alkaline Phosphatase 241 H Total Protein 7.0 Albumin 4.1 02/01/25 11:22 WBC RBC Hgb Hct MCV MCH MCHC RDW Plt Count MPV Immature Gran % (Auto) Neut % (Auto) Lymph % (Auto) [place] % (Auto) Eos % (Auto) Baso % (Auto) Lymph # (Auto) [place] # (Auto) Eos # (Auto) Baso # (Auto) Abs Immat Gran (auto) Absolute Neuts (auto) Absolute Nucleated RBC Nucleated RBC % PT INR Sodium Potassium Chloride Carbon Dioxide Anion Gap BUN Creatinine Estim Creat Clear Calc Estimated GFR Glucose POC Capillary Glucose 96 Calcium Magnesium Total Bilirubin AST ALT Alkaline Phosphatase Total Protein Albumin Quality VTE Prophylaxis VTE prophylaxis: mechanical ordered
[2025-02-01 16:25] LABS: Glucose Point of Care 133 mg/dl (65-105)
[2025-02-01] MEDS: ACETAMINOPHEN 325 MG TABLET 650 MG PO (21:26)
[2025-02-01] MEDS: INSULIN GLARGINE (*BKC) 100 UNITS/ML 15 UNITS SUB-Q (21:28)
[2025-02-01 22:18] LABS: Glucose Point of Care 195 mg/dl (65-105)
[2025-02-02] VITALS (10 sets, daily range): BP systolic 90–126; BP diastolic 43–69; PULSE 72–78; RESP 18–24; TEMP 36.1–36.8; O2SAT 95–100
[2025-02-02] MEDS: methocarbamoL 500 MG TABLET PO ×3 (04:55→21:27)
[2025-02-02 05:59] LABS: Basophils Percent Auto 0.5 % (0.2-1.2); Eosinophils Absolute Auto 0.2 K/mm3 (0-0.3); Eosinophils Percent Auto 4.3 % (0-4.4); Hematocrit 25.8 % (37.0-47.0); Immature Granulocyte Absolute 0.03 K/mm3 (0.00-0.031); Immature Granulocyte Percent A 0.5 % (0-0.5); Lymphocytes Absolute Auto 0.69 K/mm3 (0.9-3.2); Lymphocytes Percent Auto 12.4 % (18.3-44.2); Mean Corpuscular Hemoglobin 31.4 pg (26-34); Mean Corpuscular Volume 101.2 fl (80-100); Mean Platelet Volume 10.7 fl (7.4-10.4); Monocytes Absolute Auto 0.5 K/mm3 (0.1-0.6); Monocytes Percent Auto 9.5 % (2.6-8.5); Neutrophils Percent Auto 72.8 % (45.5-73.1); Platelet Count Result 211 k/mm3 (150-375); Red Blood Count 2.55 M/mm3 (4.2-5.4); Red Cell Distribution Width 16.2 % (11.5-14.5); White Blood Count 5.6 K/mm3 (4.5-10.0)
[2025-02-02 06:13] LABS: Alanine Aminotransferase 13 U/L (6-35); Albumin Level 3.8 g/dL (3.5-5.1); Alkaline Phosphatase 244 U/L (38-126); Anion Gap 13 mmol/L (4-12); Aspartate Amino Transferase 21 U/L (14-36); Bilirubin,Total 1.3 mg/dL (0.2-1.3); Blood Urea Nitrogen 27 mg/dL (7-17); Calcium 8.8 mg/dL (8.4-10.2); Carbon Dioxide 24 mmol/L (22-30); Chloride 95 mmol/L (98-107); Estimated CRCL calculation 24 ml/min; Estimated Glomerular Filt Rate 23; Glucose 120 mg/dL (65-110); Potassium 4.2 mmol/L (3.4-5.0); Sodium 132 mmol/L (137-145)
[2025-02-02 07:44] LABS: Glucose Point of Care 119 mg/dl (65-105)
[2025-02-02] MEDS: PANTOPRAZOLE 40 MG TABLET PO ×2 (08:19→20:41)
[2025-02-02] MEDS: ATORVASTATIN 10 MG TABLET PO (08:19)
[2025-02-02] MEDS: COLLAGENASE OINT 30 GM TUBE 1 APPLIC TOPICAL (08:19)
[2025-02-02] MEDS: MIDODRINE HCL 10 MG TABLET PO ×3 (08:19→16:22)
[2025-02-02] MEDS: EMPAGLIFLOZIN 10 MG TABLET PO (08:19)
[2025-02-02] MEDS: calcitrioL 0.25 MCG CAPSULE PO (08:19)
[2025-02-02] MEDS: FERROUS SULFATE 325 MG TABLET DR BY MOUTH (08:19)
[2025-02-02] MEDS: carvediloL 6.25 MG TABLET PO ×2 (08:19→20:41)
[2025-02-02] MEDS: FOLIC ACID 0.4 MG TABLET 0.8 MG PO (08:19)
[2025-02-02] MEDS: THERAPEUTIC MULTIVITAMINS/MINERALS TAB (*BKC) 1 TABLET PO (08:19)
[2025-02-02] MEDS: ASCORBIC ACID 500 MG TABLET PO (08:19)
[2025-02-02] MEDS: SPIRONOLACTONE 50 MG TABLET PO (08:19)
[2025-02-02] MEDS: MAGNESIUM OXIDE 200 MG TABLET PO (08:19)
[2025-02-02] MEDS: LINEZOLID 600 MG TABLET PO (08:19)
[2025-02-02] MEDS: THIAMINE HCL 100 MG TABLET PO (08:19)
[2025-02-02] MEDS: BUMETANIDE 1 MG TABLET PO (08:19)
--- NOTE | 2025-02-02 08:40 | PCPTNOTE ---
Presented to pt for PT/OT evaluation. PT states is having diarrhea today, is difficult to move. Reports legs are very swollen and doesn't know if she can move. Declines to participate today. Educated on movement improving swelling.
--- NOTE | 2025-02-02 09:09 | PCOTNOTE ---
Attempted OT eval this AM. Patient declining due to GI issues . Will continue to attempt.
[2025-02-02 10:56] LABS: Toxigenic C. Diff POSITIVE (NEGATIVE)
[2025-02-02 11:38] LABS: Glucose Point of Care 152 mg/dl (65-105)
--- NOTE | 2025-02-02 11:51 | PM.IMPN ---
Progress Note: A&P Assessment and Plan (1) Pleural effusion: Code(s): J90 - Pleural effusion, not elsewhere classified Status: Acute Assessment and Plan: Likely secondary to worsening cirrhosis of the liver NPO after midnight Thoracentesis ordered for the morning 02/01 Thoracentesis this morning yielded 1100 mL of pleural fluid Will continue to monitor for recurrence (2) Alcoholic cirrhosis of liver: Qualifiers: Ascites presence: without ascites Qualified Code(s): K70.30 - Alcoholic cirrhosis of liver without ascites Code(s): K70.30 - Alcoholic cirrhosis of liver without ascites Status: Chronic Assessment and Plan: Meld score 17 currently Plan for thoracentesis tomorrow morning Continue NPO status Transfer initiated to [facility] for hepatobiliary services, Dr. Botello accepting. Wait time for medical bed at [facility] is around 1 week 02/01 Post thoracentesis yielding 1100 mL of pleural fluid Patient can advance diet back to a diabetic diet Still awaiting transfer to [facility] for hepatobiliary service (3) Anasarca: Code(s): R60.1 - Generalized edema Status: Acute Assessment and Plan: see above plan of care (4) Chronic diastolic CHF (congestive heart failure): Code(s): I50.32 - Chronic diastolic (congestive) heart failure Status: Acute Assessment and Plan: Last echocardiogram showed normal LV systolic function with an estimated EF of 60-65%, grade 2 diastolic dysfunction Continue Bumex and spironolactone 02/01 No change to current treatment plan (5) Chronic kidney disease, stage 3: Qualifiers: Chronic kidney disease stage 3 subtype: stage 3b (GFR 30-44) Qualified Code(s): N18.32 - Chronic kidney disease, stage 3b Code(s): N18.30 - Chronic kidney disease, stage 3 unspecified Status: Chronic Assessment and Plan: Creatinine 2.0, EGFR 25 Baseline creatinine 1.52-1.82 Continue to trend 12/04 Creatinine today 1.88 Near baseline Continue to trend (6) Orthostatic hypotension: Code(s): I95.1 - Orthostatic hypotension Status: Acute Assessment and Plan: Blood pressures ranging 107/61 to 113/56 continue midodrine 02/01 No change to current treatment plan (7) Portal venous hypertension: Code(s): K76.6 - Portal hypertension Status: Acute Assessment and Plan: continue spironolactone 02/01 No change to current treatment plan (8) Insulin dependent type 2 diabetes mellitus: Code(s): E11.9 - Type 2 diabetes mellitus without complications; Z79.4 - supervisor intermediates (current) use of insulin Status: Chronic Assessment and Plan: Blood sugars ranging Hgb A1C 5.5 Accu checks ACHS High dose SSI ordered Continue Lantus 15 units Continue Jardiance hypoglycemic protocol in place Diabetic diet ordered 02/01 No change to current treatment plan (9) Chronic anemia: Code(s): D64.9 - Anemia, unspecified Status: Chronic Assessment and Plan: Likely secondary to a combination of cirrhosis of the liver and CKD Hgb 7.6 continue ferrous sulfate 02/01 Hemoglobin 8.0 No change to current treatment plan (10) Hematuria: Code(s): R31.9 - Hematuria, unspecified Status: Acute Assessment and Plan: Pleitez catheter placed at [facility]. On arrival to [facility] she was noted to have red tinged urine Continue pleitez care Aspirin on hold INR ordered for the morning Urology consulted 02/01 Bladder scan yielding 106 mL Urine still dark red, no clots Urology to follow Continue to hold aspirin (11) Decubitus ulcer: Code(s): L89.90 - Pressure ulcer of unspecified site, unspecified stage Status: Acute Assessment and Plan: Continue daily dressing changes with santyl to eschar and silver wound gel to surrounding tissue. Cover with dressing daily Wound nurse consult placed (12) C. difficile diarrhea: Code(s): A04.72 - Enterocolitis due to Clostridium difficile, not specified as recurrent Status: Acute Assessment and Plan: 02/02 Patient started having liquid BMs overnight Has been on antibiotics Linezolid and Levofloxacin recently C diff was positive Started Dificid Time Spent With Patient Time with patient: 25 - 35 minutes Subjective Date/time seen: 02/02/25 11:51 Interval history: Interval history: This is a 69 year old female with a significant past medical history of CHF, type 2 DM, alcoholic cirrhosis of the liver with a current Meld score of 17, CKD stage 3a who presented to [facility] from [facility] for evaluation of pleural effusion. Prior to her admission to [facility] program, patient was initially seen and treated at [facility] for evaluation after a ground level fall and hypotension. She was reporting knee pain after the fall and came in to [facility] for additional work up. Workup in the hospital at that time included an ultrasound of both lower extremities which were negative for DVT, knee x-ray showed a medial tibial plateau fracture without significant depression, CT of the abdomen and pelvis showed prominent common bile duct with a 4 mm stone in the distal common bile duct, multiple calcifications identified within the ivan hepaticus on prior studies without definitive ductal obstruction. Knee CT was negative for fracture. GI and General surgery was consulted at that time and treating and decided to treat conservatively as she was not complaining gallbladder issues and this was likely an incidental finding. She started having increased work of breathing and we continue to diurese her however she didn't show signs of improvement. A CT of the chest, abdomen, pelvis was obtained and shown a moderate size pleural effusion likely secondary to her cirrhosis of the liver. She had a thoracentesis on 01/20/2025 yielding 1 L of pleural fluid. Since that time she continued to improve and was sent out on 01/25/2025 to [facility] for further rehab needs. Patient was doing well with her therapy and then started getting worsening short of breath and a chest x-ray shown worsening pleural effusion on the right lung with anasarca present. Her work of breathing worsened overnight requiring oxygen. She was then transferred back to [facility] with plans for a therapeutic thoracentesis and plans to transfer patient to tertiary hospital for hepatobiliary services. I spoke with [facility] transfer center at 1820 p.m. and re-initiated transfer to [facility] with Dr. Botello accepting. Wait time for medical bed at [facility] is around 1 week. Subjective: Patient having diarrhea overnight and C diff was sent which was positive. She states she is feeling a little short of breath today. Labs reviewed. Review of Systems Review of Systems: All systems reviewed & are unremarkable except as noted in HPI and below Exam Narrative: General: In no acute distress, well nourished Cardiac: Normal S1 and S2. No murmur, gallops or friction rubs, peripheral pulses intact. Respiratory: Lungs clear to auscultation, no adventitious lung sounds, currently on room air Gastrointestinal: taunt, distended, non-tender, normoactive bowel sounds. anasarca present, having liquid diarrhea : Urine yellow with dark red sediment Extremities: moves all extremities well, bilateral lower extremity edema Skin: Pressure injuries to right heel and buttocks with eschar noted to wound bed, bleeding edges Neuro: Alert and oriented x4 Objective Data Vital Signs Vital Signs: Vital Signs - 24 hr 02/01/25 12:00 02/01/25 16:00 02/01/25 20:00 Temperature 98.1 F 97.5 F L 98.2 F Pulse Rate 77 71 79 Respiratory Rate 20 20 18 Blood Pressure 107/61 110/63 110/51 L Pulse Oximetry 94 97 98 Oxygen Delivery Fraction of Inspired Oxygen 02/01/25 20:00 02/01/25 21:25 02/02/25 00:00 Temperature 98.2 F Pulse Rate 80 78 Respiratory Rate 18 Blood Pressure 101/55 L Pulse Oximetry 97 Oxygen Delivery Room Air Fraction of Inspired Oxygen 02/02/25 04:00 02/02/25 08:00 02/02/25 08:00 Temperature 97 F L 97.6 F Pulse Rate 74 77 Respiratory Rate 18 20 Blood Pressure 103/46 L 96/43 L Pulse Oximetry 97 97 Oxygen Delivery Room Air Fraction of Inspired Oxygen 02/02/25 08:35 02/02/25 09:53 Temperature Pulse Rate Respiratory Rate Blood Pressure 102/52 L Pulse Oximetry 98 Oxygen Delivery Room Air Fraction of Inspired Oxygen 21 Intake/Output Intake/Output: Intake & Output 01/30/25 01/31/25 02/01/25 02/02/25 23:59 23:59 23:59 23:59 Intake Total 1328 600 Output Total 1540 250 Balance -212 350 Meds/Results Medications: Active Medications Generic Name Dose Route Start Last Admin Trade Name Freq PRN Reason Stop Dose Admin Acetaminophen 650 mg 01/31/25 18:13 02/01/25 21:26 Acetaminophen 325 Mg Tablet PO 650 mg Q4H PRN Administration Mild Pain (1-3) or Fever Albuterol 2.5 mg 01/31/25 18:16 Albuterol Sulfate Neb 2.5 Mg/3 Ml Inh INHALATION Q8HRT PRN shortness of breath or wheezing Alendronate Sodium 70 mg 02/04/25 09:00 Alendronate Sodium 70 Mg Tablet PO WEEKLY NEIL Ascorbic Acid 500 mg 02/01/25 09:00 02/02/25 08:19 Ascorbic Acid 500 Mg Tablet PO 500 mg DAILY NEIL Administration Atorvastatin Calcium 10 mg 02/01/25 09:00 02/02/25 08:19 Atorvastatin 10 Mg Tablet PO 10 mg QAM NEIL Administration Bumetanide 1 mg 02/02/25 09:00 02/02/25 08:19 Bumetanide 1 Mg Tablet PO 1 mg DAILY NEIL Administration Calcitriol 0.25 mcg 02/02/25 09:00 02/02/25 08:19 Calcitriol 0.25 Mcg Capsule PO 0.25 mcg [id number] NEIL Administration Carvedilol 6.25 mg 01/31/25 21:00 02/02/25 08:19 Carvedilol 6.25 Mg Tablet PO 6.25 mg Q12H NEIL Administration Collagenase 1 applic 02/02/25 09:00 02/02/25 08:19 Collagenase Oint 30 Gm Tube TOPICAL 1 applic QAM NEIL Administration Dextrose 12.5 gm 01/31/25 18:13 Dextrose 50% 25 Gm/50 Ml Syringe IV PUSH PRN PRN Hypoglycemia Protocol Empagliflozin 10 mg 02/01/25 09:00 02/02/25 08:19 Empagliflozin 10 Mg Tablet PO 10 mg DAILY NEIL Administration Ferrous Sulfate 325 mg 02/01/25 09:00 02/02/25 08:19 Ferrous Sulfate [address] BY MOUTH 325 mg DAILY NEIL Administration Fluticasone Propionate 1 spray 01/31/25 18:16 Fluticasone Propionate 0.05% Na Spr 16 Gm Btl (*Bkc) NASAL DAILY PRN allergies Folic Acid 0.8 mg 02/01/25 09:00 02/02/25 08:19 Folic Acid 0.4 Mg Tablet PO 0.8 mg QAM NEIL Administration Glucagon 1 mg 01/31/25 18:13 Glucagon For Inj 1 Mg Vial IM PRN PRN Hypoglycemia Protocol Glucose 15 gm 01/31/25 18:13 Glucose Oral Gel 15 Gm Of Glucse In 37.5 Gm Tube PO PRN PRN Hypoglycemia Protocol Dextrose 1,000 mls @ 100 mls/hr 01/31/25 18:13 Dextrose 5% 1,000 Ml IVPB PRN PRN Hypoglycemia Protocol Insulin Aspart 4 - 8 units 02/01/25 08:00 02/02/25 11:46 Insulin Aspart (*Bkc) 100 Units/Ml SUB-Q Not Given TIDWM NEIL Protocol Insulin Aspart 2 - 4 units 01/31/25 21:00 02/01/25 21:27 Insulin Aspart (*Bkc) 100 Units/Ml SUB-Q Not Given HS [facility] Protocol Insulin Glargine 15 units 01/31/25 21:00 02/01/25 21:28 Insulin Glargine (*Bkc) 100 Units/Ml SUB-Q 15 units HS NEIL Administration Levofloxacin 750 mg 02/01/25 14:00 02/01/25 13:01 Levofloxacin 750 Mg Tablet PO 750 mg Q48H NEIL Administration Linezolid 600 mg 01/31/25 21:00 02/02/25 08:19 Linezolid 600 Mg Tablet PO 600 mg Q12HR NEIL Administration Magnesium Oxide 200 mg 02/01/25 09:00 02/02/25 08:19 Magnesium Oxide 200 Mg Tablet PO 200 mg QAM [facility] Administration Methocarbamol 500 mg 01/31/25 22:00 02/02/25 04:55 Methocarbamol 500 Mg Tablet PO 500 mg Q8HR NEIL Administration Midodrine 10 mg 01/31/25 18:20 02/02/25 08:19 Midodrine Hcl 10 Mg Tablet PO 10 mg TID [facility] Administration Multivitamins/Calcium 1 tablet 02/01/25 09:00 02/02/25 08:19 Therapeutic Multivitamins/Minerals Tab (*Bkc) PO 1 tablet DAILY [facility] Administration Ondansetron HCl 4 mg 01/31/25 18:13 Ondansetron Inj 4 Mg/2 Ml Vial IV PUSH Q6H PRN Nausea And Vomiting Pantoprazole Sodium 40 mg 01/31/25 21:00 02/02/25 08:19 Pantoprazole 40 Mg Tablet PO 40 mg Q12HR [facility] Administration Senna 8.6 mg 01/31/25 18:16 Sennosides 8.6 Mg Tablet PO DAILY PRN constipation Spironolactone 50 mg 02/01/25 09:00 02/02/25 08:19 Spironolactone 50 Mg Tablet PO 50 mg QAM [facility] Administration Thiamine HCl 100 mg 02/01/25 09:00 02/02/25 08:19 Thiamine Hcl 100 Mg Tablet PO 100 mg QAM NEIL Administration Radiology Results: ITS Impressions Chest X-Ray 02/01/25 09:27 IMPRESSION: 1. Decrease small right pleural effusion with associated basilar atelectasis and/or pneumonia post right thoracentesis. Thoracentesis Ultrasound 02/01/25 09:56 IMPRESSION: 1. Successful ultrasound-guided thoracentesis yielding 1100 mL of clear yellow fluid. Labs Labs: Laboratory Results - last 24 hr 02/01/25 02/01/25 02/02/25 16:23 21:05 05:37 WBC 5.6 RBC 2.55 L Hgb 8.0 L Hct 25.8 L MCV 101.2 H MCH 31.4 MCHC 31.0 L RDW 16.2 H Plt Count 211 MPV 10.7 H Immature Gran % (Auto) 0.5 Neut % (Auto) 72.8 Lymph % (Auto) 12.4 L [place] % (Auto) 9.5 H Eos % (Auto) 4.3 Baso % (Auto) 0.5 Lymph # (Auto) 0.69 L [place] # (Auto) 0.5 Eos # (Auto) 0.2 Baso # (Auto) 0.0 Abs Immat Gran (auto) 0.03 Absolute Neuts (auto) 4.0 Absolute Nucleated RBC 0.000 Nucleated RBC % 0.0 Sodium 132 L Potassium 4.2 Chloride 95 L Carbon Dioxide 24 Anion Gap 13 H BUN 27 H Creatinine 2.16 H Estim Creat Clear Calc 24 Estimated GFR 23 L Glucose 120 H POC Capillary Glucose 133 H 195 H Calcium 8.8 Total Bilirubin 1.3 AST 21 ALT 13 Alkaline Phosphatase 244 H Total Protein 6.0 L Albumin 3.8 C. difficile (PCR) 02/02/25 02/02/25 02/02/25 07:25 09:55 11:25 WBC RBC Hgb Hct MCV MCH MCHC RDW Plt Count MPV Immature Gran % (Auto) Neut % (Auto) Lymph % (Auto) [place] % (Auto) Eos % (Auto) Baso % (Auto) Lymph # (Auto) [place] # (Auto) Eos # (Auto) Baso # (Auto) Abs Immat Gran (auto) Absolute Neuts (auto) Absolute Nucleated RBC Nucleated RBC % Sodium Potassium Chloride Carbon Dioxide Anion Gap BUN Creatinine Estim Creat Clear Calc Estimated GFR Glucose POC Capillary Glucose 119 H 152 H Calcium Total Bilirubin AST ALT Alkaline Phosphatase Total Protein Albumin C. difficile (PCR) Positive A* Quality VTE Prophylaxis VTE prophylaxis: mechanical ordered
[2025-02-02] MEDS: ACETAMINOPHEN 325 MG TABLET 650 MG PO (13:36)
[2025-02-02 15:06] LABS: Glucose Point of Care 187 mg/dl (65-105)
[2025-02-02] MEDS: SODIUM CHLORIDE 0.9% IV 250 ML IV CONT (15:25)
--- NOTE | 2025-02-02 16:20 | WPDURCON ---
Assessment and Plan Assessment and plan (1) Hematuria: Code(s): R31.9 - Hematuria, unspecified Status: Acute Assessment and Plan: Gross hematuria, after pleitez placement. - Urinalysis not sent since 01/16/25, culture ordered yesterday and pending - discussed with patient possible etiologies of hematuria - infeciton, inflammation, neoplasm, stones etc. We also discussed work up - she had CT with contrast 01/16/25 that shows no masses in kidneys, no stones, no obvious source of hematuria CT non-con 01/29/25 somewhat obscured by hip prosthetic but shows no major clot in bladder, pleitez draining well now. - discussed with patient she should get a non-urgent cystoscopy to clear lower tract for tumor or other source. timing pending dispo to [place] where hepatology transfer is pending - can intermittently irrigate pleitez prn if drainage an issue but as of now has been none - our service will reassess tomorrow Urology Consult Note HPI Date Seen: 02/02/25 Requesting Physician: Agustina Naik APRN Primary Care Provider: Ghanshyam Ruiz APRN Consult Narrative Narrative: Lou Islas is a 69 year old female With a history of cirrhosis, chronic kidney disease, diastolic dysfunction, prior smoking, admitted for management of lower extremity edema, shortness of breath, pleural effusion, and progressive hepatic insufficiency who had a Pleitez catheter placed 2 days ago which has been noted to be bloody since catheter was placed and Urology is consulted for evaluation of this. The patient reports no major baseline urologic history. She denies ever having prior hematuria. She denies recurrent urinary tract infections, kidney stones, prior urologic surgery. She reports some urinary frequency due to chronic diuresis and lower extremity edema. She smoked for about 30 years but quit 20 years ago. After placement of Pleitez catheter she noted to have some bloody urine in the catheter. On my evaluation today the Pleitez is in place, urine in the tubing is very light red, there is some clot like sediment in the dependent portion of the drainage tubing, but no other obvious clots. She denies flank pain, urologic discomfort other than a bit of bother from the Pleitez. She has had no fevers or chills. Review of Systems Review of Systems: All systems reviewed & are unremarkable except as noted in HPI and below PMFSH Past Medical History Medical History Alcoholic cirrhosis of liver Chronic venous insufficiency of lower extremity Stage 3a chronic kidney disease Shingles ANTHONY (obstructive sleep apnea) Osteoporosis Gram-negative bacteremia Anemia of chronic disease Ascites Obesity (BMI 30-39.9) Hyperlipidemia, unspecified Carotid artery disease Alcohol abuse Osteoarthritis Diastolic dysfunction ECHO 10/2023: normal LV systolic function, estimated EF of 60-65%, abnormal diastolic dysfunction. Left-sided carotid artery disease US 01/2021: 50 to 69% stenosis of the left ICA. Orthostatic hypotension on midodrine, chronic hypotension, previously caused syncope and frequent falls and subsequent fractures. Insulin dependent type 2 diabetes mellitus A1C 5.1% 08/2024 Hypertension Chronic hyponatremia Eczema Periprosthetic fracture of femur following total replacement of hip (01/2020) Non operative treatment. GERD (gastroesophageal reflux disease) Surgical History Surgical History Status post open reduction with internal fixation of fracture (05/30/21) ORIF of comminuted intra-articular fracture of the distal left femur, done at [facility]. History of hysterectomy (2005) Due to uterine fibroids and endometriosis. History of bilateral cataract extraction History of lumbar surgery (2005) L1-L3. History of right hip replacement (2005) Per Dr. Curiel in [place]. Family History Family History Father Heart attack Mother Diabetes mellitus COPD (chronic obstructive pulmonary disease) Hypertension Afib Sibling Amputation above knee Diabetes mellitus Father , At age 50 Acute myocardial infarction Sibling , At age 50 Pancreatic cancer Social History Social History Social History: The patient lives in her own home in [place]. She has been twice, her 1st and she has since her 2nd . She has no children. She moved to this area within the last couple of years from [place] to be close to her 3 remaining siblings. She worked from home for a [employer] doing [employer] ([employer] and she has a master's degree in statistics. She has recently retired.She smoked up to 2 packs of cigarettes a day before quitting in 2005. She drinks 2 mixed drinks a day, each containing a shot of vodka which equals out to about 1 L to 1.7 L of vodka a week. She denies illicit substance use. Surrogate decision maker: Miladys Jensen, sister. Code status: Full code. Smoking packs per day: 2 Smoking cigarettes per day: 40.0 Years smoked: 30 Smoking pack-years: 60.00 Smoking status: Former smoker Smokeless tobacco user: chewing tobacco Second hand tobacco smoke exposure: No Alcohol intake: former Drinks per week: 14 Substance use: never Substance use type: does not use Do You Feel Safe in your Home?: Yes Lack of Transportation: No Lack of Food: Never True Current Housing: I Have Housing Concerned About Future Housing: No Difficulty Paying Gas/Electric Bills: No Difficulty Paying for Meds: No Currently Unemployed: No Education: Master's Degree or Higher Difficulty w/ Childcare or Family Care: No Living arrangements: alone Occupation/Education: retired Gender identity (if verbalized by the patient): Female Sexual Orientation (if Verbalized by the Patient): Straight or Heterosexual Spiritual care concerns: No Meds Home Medications and Allergies Home Medications ?Medication ?Instructions ?Recorded ?Confirmed ?Type fluticasone propionate 50 1 spray intranasal DAILY PRN 08/16/20 01/31/25 History mcg/actuation nasal allergies spray,suspension thiamine HCl (vitamin B1) 100 mg 100 mg PO QAM #30 tabs 08/18/20 01/31/25 Rx tablet (Vitamin B-1) zwsimuzkvoov-Rr-hvkx-minerals 1 tablet PO DAILY #30 tabs 01/16/21 01/31/25 Rx (Multiple Vitamin, Womens tablet) mecobalamin (vitamin B12) 1,000 3,000 mcg PO DAILY 05/13/21 01/31/25 History mcg chewable tablet pyridoxine (vitamin B6) 100 mg 100 mg PO DAILY 05/13/21 01/31/25 History tablet magnesium oxide 400 mg (241.3 mg 250 mg PO QAM 06/06/21 01/31/25 History magnesium) tablet blood sugar diagnostic #360 ea 10/31/22 01/31/25 Rx empagliflozin 10 mg tablet 10 mg PO DAILY #30 tabs 10/26/23 01/31/25 Rx (Jardiance) alendronate 70 mg tablet 70 mg PO WEEKLY #12 tabs 12/12/23 01/31/25 Rx atorvastatin 10 mg tablet 10 mg PO QAM #90 tabs 06/10/24 01/31/25 Rx ascorbate calcium (vitamin C) 500 500 mg PO DAILY 06/20/24 01/31/25 History mg tablet aspirin 81 mg tablet,delayed 81 mg PO DAILY 06/20/24 01/31/25 History release folic acid 800 mcg tablet 0.8 mg PO DAILY 06/20/24 01/31/25 History calcitriol 0.25 mcg capsule 0.25 mcg PO 4XW #16 caps 08/23/24 01/31/25 Rx pen needle, diabetic 32 gauge x #360 ea 09/11/24 01/31/25 Rx /32 (BD Muriel 2nd Gen Pen Needle) blood-glucose sensor (Dexcom G7 #3 ea 09/13/24 01/31/25 Rx Sensor device) potassium chloride 10 mEq 10 meq PO DAILY #90 caps 09/30/24 01/31/25 Rx capsule,extended release insulin glargine 100 unit/mL (3 See Rx Instructions .Route 10/25/24 01/31/25 Rx mL) subcutaneous pen (Lantus .COMPLEX #15 mL Solostar U-100 Insulin) carvedilol 6.25 mg tablet 6.25 mg PO Q12H #60 tabs 12/31/24 01/31/25 Rx albuterol sulfate 2.5 mg/3 mL 2.5 mg inhalation Q8H PRN 01/16/25 01/31/25 History (0.083 %) solution for nebulization shortness of breath or wheezing ferrous sulfate 325 mg (65 mg 325 mg PO DAILY 01/16/25 01/31/25 History iron) tablet (Leonard-Time) insulin lispro 100 unit/mL 3 unit subcut TID 01/16/25 01/31/25 History subcutaneous pen (Humalog KwikPen (U-100) Insulin) lanolin alcohols-mineral 1 applic topical DAILY 01/16/25 01/31/25 History oil-w.petrolatum-ceresin topical cream midodrine 10 mg tablet 10 mg PO TID dizziness or vertigo 01/16/25 01/31/25 History pantoprazole 40 mg tablet,delayed 40 mg PO BID 01/16/25 01/31/25 History release sennosides 8.6 mg tablet (senna) 8.6 mg PO DAILY PRN constipation 01/16/25 01/31/25 History bumetanide 1 mg tablet 1 mg PO DAILY #30 tabs 01/25/25 01/31/25 Rx levofloxacin 750 mg tablet 750 mg PO Q48H 01/31/25 01/31/25 History linezolid 600 mg tablet 600 mg PO Q12HR #1 tablet 01/31/25 01/31/25 Rx spironolactone 25 mg tablet 50 mg PO QAM 01/31/25 01/31/25 History Allergies Allergy/AdvReac Type Severity Reaction Status Date / Time codeine AdvReac Unknown Headache Verified 01/31/25 18:20 Vital Signs Vital Signs - 24 hr 02/01/25 20:00 02/01/25 20:00 02/01/25 21:25 Temperature 36.8 C Pulse Rate 79 80 Respiratory Rate 18 Blood Pressure 110/51 L Pulse Oximetry 98 Oxygen Delivery Room Air Fraction of Inspired Oxygen 02/02/25 00:00 02/02/25 04:00 02/02/25 08:00 Temperature 36.8 C 36.1 C L Pulse Rate 78 74 Respiratory Rate 18 18 Blood Pressure 101/55 L 103/46 L Pulse Oximetry 97 97 Oxygen Delivery Room Air Fraction of Inspired Oxygen 02/02/25 08:00 02/02/25 08:35 02/02/25 09:53 Temperature 36.4 C Pulse Rate 77 Respiratory Rate 20 Blood Pressure 96/43 L 102/52 L Pulse Oximetry 97 98 Oxygen Delivery Room Air Fraction of Inspired Oxygen 21 02/02/25 12:00 Temperature 36.5 C Pulse Rate 73 Respiratory Rate 20 Blood Pressure 90/57 L Pulse Oximetry 96 Oxygen Delivery Fraction of Inspired Oxygen Exam Const: General: comfortable HENMT: Mouth: Yes moist mucous membranes abnormal Eyes: General: appearance normal, both eyes and all related structures Resp: Effort & Inspection: normal respiratory effort Cardio: Rate: regular rate GI: GI Palp: Yes Soft to palpation and No Tenderness to palpation present (GI) Urinary Catheter: Urinary Catheter: patent and draining and urine red (clear with red tinge) Results Labs 02/02/25 05:37 02/02/25 05:37 Labs: Short CBC 02/02/25 Range/Units 05:37 WBC 5.6 (4.5-10.0) K/mm3 Hgb 8.0 L (12.0-15.0) g/dL Hct 25.8 L (37.0-47.0) % Plt Count 211 (150-375) k/mm3 BMP 02/02/25 05:37 Sodium 132 L Potassium 4.2 Chloride 95 L Carbon Dioxide 24 BUN 27 H Creatinine 2.16 H Glucose 120 H Calcium 8.8 Liver Function 02/02/25 Range/Units 05:37 Total Bilirubin 1.3 (0.2-1.3) mg/dL AST 21 (14-36) U/L ALT 13 (6-35) U/L Alkaline Phosphatase 244 H (38-126) U/L Albumin 3.8 (3.5-5.1) g/dL Imaging Radiologist's impression: CT a/p w 01/16/25- IMPRESSION: Prominence of the common bile duct with a 4 mm stone in the distal common bile duct. Multiple calcifications have been identified within the ivan hepatis on prior studies, without definitive ductal obstruction, present on the current examination secondary to positioning and technique. Remaining findings within the lower chest, abdomen and pelvis are chronic and unchanged from prior study, as detailed above. CT a/p w/o 01/27/25 IMPRESSION: 1. Moderate-sized right and small left pleural effusion with associated compressive atelectasis in the dependent lungs. 2. New tree-in-bud opacities in the left upper lobe consistent with endobronchial spread of disease most likely pneumonia. 3. A couple groundglass nodules in the right upper lobe the largest measuring 1.1 cm. Recommend 6 month follow-up low-dose noncontrast chest CT. 4. Chronic small pericardial effusion with pericardial calcifications. 5. Cirrhosis with stigmata of secondary portal venous hypertension including gastroesophageal varices and splenomegaly. 6. Small sliding-type hiatal hernia. 7. Cholelithiasis and possible nonobstructing choledocholithiasis versus pancreatic parenchymal calcifications as sequela of chronic pancreatitis. 8. Improvement in prior body wall edema and resolution of prior ascites.
[2025-02-02 16:40] LABS: Glucose Point of Care 153 mg/dl (65-105)
[2025-02-02] MEDS: FIDAXOMICIN 200 MG TABLET PO (20:41)
[2025-02-02] MEDS: INSULIN GLARGINE (*BKC) 100 UNITS/ML 15 UNITS SUB-Q (20:42)
[2025-02-02 21:11] LABS: Glucose Point of Care 192 mg/dl (65-105)
[2025-02-03] VITALS (8 sets, daily range): BP systolic 103–142; BP diastolic 41–68; PULSE 68–83; RESP 16–20; TEMP 36.2–36.9; O2SAT 92–100; BMI 32.3
[2025-02-03] MEDS: methocarbamoL 500 MG TABLET PO ×3 (05:28→21:14)
[2025-02-03 06:05] LABS: Basophils Percent Auto 0.7 % (0.2-1.2); Eosinophils Absolute Auto 0.4 K/mm3 (0-0.3); Eosinophils Percent Auto 6.1 % (0-4.4); Hematocrit 25.6 % (37.0-47.0); Hemoglobin 8.2 g/dL (12.0-15.0); Immature Granulocyte Absolute 0.02 K/mm3 (0.00-0.031); Immature Granulocyte Percent A 0.3 % (0-0.5); Lymphocytes Absolute Auto 0.88 K/mm3 (0.9-3.2); Lymphocytes Percent Auto 15.4 % (18.3-44.2); Mean Corpuscular Hemoglobin 31.9 pg (26-34); Mean Corpuscular Volume 99.6 fl (80-100); Mean Platelet Volume 10.1 fl (7.4-10.4); Monocytes Absolute Auto 0.5 K/mm3 (0.1-0.6); Monocytes Percent Auto 8.4 % (2.6-8.5); Neutrophils Percent Auto 69.1 % (45.5-73.1); Platelet Count Result 202 k/mm3 (150-375); Red Blood Count 2.57 M/mm3 (4.2-5.4); Red Cell Distribution Width 16.2 % (11.5-14.5); White Blood Count 5.7 K/mm3 (4.5-10.0)
[2025-02-03 06:16] LABS: Alanine Aminotransferase 13 U/L (6-35); Albumin Level 3.8 g/dL (3.5-5.1); Alkaline Phosphatase 232 U/L (38-126); Anion Gap 12 mmol/L (4-12); Aspartate Amino Transferase 22 U/L (14-36); Bilirubin,Total 1.3 mg/dL (0.2-1.3); Blood Urea Nitrogen 29 mg/dL (7-17); Calcium 8.7 mg/dL (8.4-10.2); Carbon Dioxide 23 mmol/L (22-30); Chloride 97 mmol/L (98-107); Estimated CRCL calculation 24 ml/min; Estimated Glomerular Filt Rate 22; Glucose 82 mg/dL (65-110); Sodium 132 mmol/L (137-145)
--- NOTE | 2025-02-03 08:19 | WPDUROPN2 ---
Progress Note: A&P Assessment and Plan (1) Hematuria: Code(s): R31.9 - Hematuria, unspecified Status: Acute Assessment and Plan: CT scan unrevealing. Urine culture pending. No need for urgent urologic intervention. Will need outpatient cystoscopy. Samuel per primary team. It can be removed at any time Subjective Subjective Date/Time Seen: 02/03/25 08:19 Interval history: No urologic complaints today. Urine is tea-colored on exam No clots or billy red blood in the urine Exam Narrative: No acute distress Samuel catheter in place Urine tea-colored Objective Data Vital Signs Vital Signs: Vital Signs - 24 hr 02/02/25 08:35 02/02/25 09:53 02/02/25 12:00 Temperature 97.7 F Pulse Rate 73 Respiratory Rate 20 Blood Pressure 102/52 L 90/57 L Pulse Oximetry 98 96 Oxygen Delivery Room Air Oxygen Flow Rate Fraction of Inspired Oxygen 21 02/02/25 16:21 02/02/25 20:00 02/02/25 20:40 Temperature 97.3 F L 97.2 F L Pulse Rate 72 74 Respiratory Rate 22 H 24 H Blood Pressure 109/69 126/44 L Pulse Oximetry 96 95 100 Oxygen Delivery Nasal Cannula Oxygen Flow Rate 2 Fraction of Inspired Oxygen 02/02/25 20:41 02/03/25 00:00 02/03/25 04:00 Temperature 97.6 F 97.1 F L Pulse Rate 75 71 73 Respiratory Rate 20 16 Blood Pressure 105/44 L 107/46 L Pulse Oximetry 100 100 Oxygen Delivery Oxygen Flow Rate Fraction of Inspired Oxygen Intake/Output Intake/Output: Intake & Output 01/31/25 02/01/25 02/02/25 02/03/25 23:59 23:59 23:59 23:59 Intake Total 1328 1658 Output Total 1540 250 325 Balance -212 1408 -325 Meds/Results Medications: Active Medications Generic Name Dose Route Start Last Admin Trade Name Freq PRN Reason Stop Dose Admin Acetaminophen 650 mg 01/31/25 18:13 02/02/25 13:36 Acetaminophen 325 Mg Tablet PO 650 mg Q4H PRN Administration Mild Pain (1-3) or Fever Albuterol 2.5 mg 01/31/25 18:16 Albuterol Sulfate Neb 2.5 Mg/3 Ml Inh INHALATION Q8HRT PRN shortness of breath or wheezing Alendronate Sodium 70 mg 02/04/25 09:00 Alendronate Sodium 70 Mg Tablet PO WEEKLY [facility] Ascorbic Acid 500 mg 02/01/25 09:00 02/02/25 08:19 Ascorbic Acid 500 Mg Tablet PO 500 mg DAILY NEIL Administration Atorvastatin Calcium 10 mg 02/01/25 09:00 02/02/25 08:19 Atorvastatin 10 Mg Tablet PO 10 mg QAM NEIL Administration Bumetanide 1 mg 02/02/25 09:00 02/02/25 08:19 Bumetanide 1 Mg Tablet PO 1 mg DAILY NEIL Administration Calcitriol 0.25 mcg 02/02/25 09:00 02/02/25 08:19 Calcitriol 0.25 Mcg Capsule PO 0.25 mcg [id number] [facility] Administration Carvedilol 6.25 mg 01/31/25 21:00 02/02/25 20:41 Carvedilol 6.25 Mg Tablet PO 6.25 mg Q12H NEIL Administration Collagenase 1 applic 02/02/25 09:00 02/02/25 08:19 Collagenase Oint 30 Gm Tube TOPICAL 1 applic QAM [facility] Administration Dextrose 12.5 gm 01/31/25 18:13 Dextrose 50% 25 Gm/50 Ml Syringe IV PUSH PRN PRN Hypoglycemia Protocol Empagliflozin 10 mg 02/01/25 09:00 02/02/25 08:19 Empagliflozin 10 Mg Tablet PO 10 mg DAILY NEIL Administration Ferrous Sulfate 325 mg 02/01/25 09:00 02/02/25 08:19 Ferrous Sulfate [address] BY MOUTH 325 mg DAILY NEIL Administration Fidaxomicin 200 mg 02/02/25 21:00 02/02/25 20:41 Fidaxomicin 200 Mg Tablet PO 02/12/25 20:59 200 mg Q12HR NEIL Administration Fluticasone Propionate 1 spray 01/31/25 18:16 Fluticasone Propionate 0.05% Na Spr 16 Gm Btl (*Bkc) NASAL DAILY PRN allergies Folic Acid 0.8 mg 02/01/25 09:00 02/02/25 08:19 Folic Acid 0.4 Mg Tablet PO 0.8 mg QAM NEIL Administration Glucagon 1 mg 01/31/25 18:13 Glucagon For Inj 1 Mg Vial IM PRN PRN Hypoglycemia Protocol Glucose 15 gm 01/31/25 18:13 Glucose Oral Gel 15 Gm Of Glucse In 37.5 Gm Tube PO PRN PRN Hypoglycemia Protocol Dextrose 1,000 mls @ 100 mls/hr 01/31/25 18:13 Dextrose 5% 1,000 Ml IVPB PRN PRN Hypoglycemia Protocol Insulin Aspart 4 - 8 units 02/01/25 08:00 02/02/25 16:22 Insulin Aspart (*Bkc) 100 Units/Ml SUB-Q Not Given TIDWM NEIL Protocol Insulin Aspart 2 - 4 units 01/31/25 21:00 02/02/25 20:42 Insulin Aspart (*Bkc) 100 Units/Ml SUB-Q Not Given HS NEIL Protocol Insulin Glargine 15 units 01/31/25 21:00 02/02/25 20:42 Insulin Glargine (*Bkc) 100 Units/Ml SUB-Q 15 units HS NEIL Administration Magnesium Oxide 200 mg 02/01/25 09:00 02/02/25 08:19 Magnesium Oxide 200 Mg Tablet PO 200 mg QAM NEIL Administration Methocarbamol 500 mg 01/31/25 22:00 02/03/25 05:28 Methocarbamol 500 Mg Tablet PO 500 mg Q8HR NEIL Administration Midodrine 10 mg 01/31/25 18:20 02/02/25 16:22 Midodrine Hcl 10 Mg Tablet PO 10 mg TID NEIL Administration Multivitamins/Calcium 1 tablet 02/01/25 09:00 02/02/25 08:19 Therapeutic Multivitamins/Minerals Tab (*Bkc) PO 1 tablet DAILY NEIL Administration Ondansetron HCl 4 mg 01/31/25 18:13 Ondansetron Inj 4 Mg/2 Ml Vial IV PUSH Q6H PRN Nausea And Vomiting Pantoprazole Sodium 40 mg 01/31/25 21:00 02/02/25 20:41 Pantoprazole 40 Mg Tablet PO 40 mg Q12HR NEIL Administration Senna 8.6 mg 01/31/25 18:16 Sennosides 8.6 Mg Tablet PO DAILY PRN constipation Spironolactone 50 mg 02/01/25 09:00 02/02/25 08:19 Spironolactone 50 Mg Tablet PO 50 mg QAM NEIL Administration Thiamine HCl 100 mg 02/01/25 09:00 02/02/25 08:19 Thiamine Hcl 100 Mg Tablet PO 100 mg QAM NEIL Administration Radiology Results: ITS Impressions Thoracentesis Ultrasound 02/01/25 09:56 IMPRESSION: 1. Successful ultrasound-guided thoracentesis yielding 1100 mL of clear yellow fluid. Chest X-Ray 02/02/25 16:38 IMPRESSION: Increasing interstitial edema. Increasing small right pleural effusion. Labs Labs: Laboratory Results - last 24 hr 02/02/25 02/02/25 02/02/25 09:55 11:25 15:03 WBC RBC Hgb Hct MCV MCH MCHC RDW Plt Count MPV Immature Gran % (Auto) Neut % (Auto) Lymph % (Auto) Union % (Auto) Eos % (Auto) Baso % (Auto) Lymph # (Auto) [place] # (Auto) Eos # (Auto) Baso # (Auto) Abs Immat Gran (auto) Absolute Neuts (auto) Absolute Nucleated RBC Nucleated RBC % Sodium Potassium Chloride Carbon Dioxide Anion Gap BUN Creatinine Estim Creat Clear Calc Estimated GFR Glucose POC Capillary Glucose 152 H 187 H Calcium Total Bilirubin AST ALT Alkaline Phosphatase Total Protein Albumin C. difficile (PCR) Positive A* 02/02/25 02/02/25 02/03/25 16:28 20:13 05:46 WBC 5.7 RBC 2.57 L Hgb 8.2 L Hct 25.6 L MCV 99.6 MCH 31.9 MCHC 32.0 RDW 16.2 H Plt Count 202 MPV 10.1 Immature Gran % (Auto) 0.3 Neut % (Auto) 69.1 Lymph % (Auto) 15.4 L Union % (Auto) 8.4 Eos % (Auto) 6.1 H Baso % (Auto) 0.7 Lymph # (Auto) 0.88 L Union # (Auto) 0.5 Eos # (Auto) 0.4 H Baso # (Auto) 0.0 Abs Immat Gran (auto) 0.02 Absolute Neuts (auto) 4.0 Absolute Nucleated RBC 0.000 Nucleated RBC % 0.0 Sodium 132 L Potassium 4.0 Chloride 97 L Carbon Dioxide 23 Anion Gap 12 BUN 29 H Creatinine 2.18 H Estim Creat Clear Calc 24 Estimated GFR 22 L Glucose 82 POC Capillary Glucose 153 H 192 H Calcium 8.7 Total Bilirubin 1.3 AST 22 ALT 13 Alkaline Phosphatase 232 H Total Protein 7.0 Albumin 3.8 C. difficile (PCR)
[2025-02-03 08:25] LABS: Glucose Point of Care 85 mg/dl (65-105)
[2025-02-03] MEDS: FOLIC ACID 0.4 MG TABLET 0.8 MG PO (09:00)
[2025-02-03] MEDS: SPIRONOLACTONE 50 MG TABLET PO (09:01)
[2025-02-03] MEDS: BUMETANIDE 1 MG TABLET PO (09:01)
[2025-02-03] MEDS: FERROUS SULFATE 325 MG TABLET DR BY MOUTH (09:01)
[2025-02-03] MEDS: EMPAGLIFLOZIN 10 MG TABLET PO (09:01)
[2025-02-03] MEDS: PANTOPRAZOLE 40 MG TABLET PO ×2 (09:01→21:14)
[2025-02-03] MEDS: THERAPEUTIC MULTIVITAMINS/MINERALS TAB (*BKC) 1 TABLET PO (09:01)
[2025-02-03] MEDS: MIDODRINE HCL 10 MG TABLET PO ×2 (09:01→12:19)
[2025-02-03] MEDS: ASCORBIC ACID 500 MG TABLET PO (09:01)
[2025-02-03] MEDS: MAGNESIUM OXIDE 200 MG TABLET PO (09:01)
[2025-02-03] MEDS: FIDAXOMICIN 200 MG TABLET PO ×2 (09:01→21:14)
[2025-02-03] MEDS: THIAMINE HCL 100 MG TABLET PO (09:01)
[2025-02-03] MEDS: ATORVASTATIN 10 MG TABLET PO (09:01)
[2025-02-03] MEDS: carvediloL 6.25 MG TABLET PO ×2 (09:01→21:12)
[2025-02-03] MEDS: COLLAGENASE OINT 30 GM TUBE 1 APPLIC TOPICAL (09:02)
[2025-02-03] MEDS: calcitrioL 0.25 MCG CAPSULE PO (09:02)
[2025-02-03] MEDS: ACETAMINOPHEN 325 MG TABLET 650 MG PO (09:30)
[2025-02-03 12:16] LABS: Glucose Point of Care 137 mg/dl (65-105)
--- NOTE | 2025-02-03 14:38 | P.PNIM_ITS ---
Progress Note: A&P Assessment and Plan (1) Pleural effusion: Code(s): J90 - Pleural effusion, not elsewhere classified Status: Acute Assessment and Plan: Likely secondary to worsening cirrhosis of the liver * NPO after midnight * Thoracentesis ordered for the morning 02/01 * Thoracentesis this morning yielded 1100 mL of pleural fluid * Will continue to monitor for recurrence 02/03 (2) Alcoholic cirrhosis of liver: Qualifiers: Ascites presence: without ascites Qualified Code(s): K70.30 - Alcoholic cirrhosis of liver without ascites Code(s): K70.30 - Alcoholic cirrhosis of liver without ascites Status: Chronic Assessment and Plan: * Meld score 17 currently * Plan for thoracentesis tomorrow morning * Continue NPO status * Transfer initiated to [facility] for hepatobiliary services, Dr. Botello accepting. Wait time for medical bed at [facility] is around 1 week 02/01 * Post thoracentesis yielding 1100 mL of pleural fluid * Patient can advance diet back to a diabetic diet * Still awaiting transfer to [facility] for hepatobiliary service 02/02 * Awaiting bed at [facility] * Continue to monitor for re-occurring pleural effusions 02/03 * Requiring O2 over night * Will make NPO after midnight for Thoracentesis in the morning (3) Anasarca: Code(s): R60.1 - Generalized edema Status: Acute Assessment and Plan: see above plan of care (4) Chronic diastolic CHF (congestive heart failure): Code(s): I50.32 - Chronic diastolic (congestive) heart failure Status: Acute Assessment and Plan: * Last echocardiogram showed normal LV systolic function with an estimated EF of 60-65%, grade 2 diastolic dysfunction * Continue Bumex and spironolactone 02/01 * No change to current treatment plan (5) Chronic kidney disease, stage 3: Qualifiers: Chronic kidney disease stage 3 subtype: stage 3b (GFR 30-44) Qualified Code(s): N18.32 - Chronic kidney disease, stage 3b Code(s): N18.30 - Chronic kidney disease, stage 3 unspecified Status: Chronic Assessment and Plan: * Creatinine 2.0, EGFR 25 * Baseline creatinine 1.52-1.82 * Continue to trend 12/04 * Creatinine today 1.88 * Near baseline * Continue to trend 12/06 * Creatinine 2.16 2/22 * Creatinine 2.18 * Will give 1 time dose of Bumex 1mg IV now (6) Orthostatic hypotension: Code(s): I95.1 - Orthostatic hypotension Status: Acute Assessment and Plan: * Blood pressures ranging 107/61 to 113/56 * continue midodrine 02/01 * No change to current treatment plan 02/03 * Increased Midodrine to 15mg TID for her hypotension (7) Portal venous hypertension: Code(s): K76.6 - Portal hypertension Status: Acute Assessment and Plan: * continue spironolactone 02/01 * No change to current treatment plan 02/02 * Increased spironolactone to 75mg daily considering her cirrhosis and fluid overload (8) Insulin dependent type 2 diabetes mellitus: Code(s): E11.9 - Type 2 diabetes mellitus without complications; Z79.4 - MCFP (current) use of insulin Status: Chronic Assessment and Plan: * Blood sugars ranging * Hgb A1C 5.5 * Accu checks ACHS * High dose SSI ordered * Continue Lantus 15 units * Continue Jardiance * hypoglycemic protocol in place * Diabetic diet ordered 02/01 * No change to current treatment plan (9) Chronic anemia: Code(s): D64.9 - Anemia, unspecified Status: Chronic Assessment and Plan: Likely secondary to a combination of cirrhosis of the liver and CKD * Hgb 7.6 * continue ferrous sulfate 02/01 * Hemoglobin 8.0 * No change to current treatment plan (10) Hematuria: Code(s): R31.9 - Hematuria, unspecified Status: Acute Assessment and Plan: Pleitez catheter placed at [facility]. On arrival to [place] she was noted to have red tinged urine * Continue pleitez care * Aspirin on hold * INR ordered for the morning * Urology consulted 02/01 * Bladder scan yielding 106 mL * Urine still dark red, no clots * Urology to follow * Continue to hold aspirin 02/03 * pleitez catheter in place with red sediment * Urology recommending outpatient cystoscopy, no urgent intervention required at this time. (11) Decubitus ulcer: Code(s): L89.90 - Pressure ulcer of unspecified site, unspecified stage Status: Acute Assessment and Plan: * Continue daily dressing changes with santyl to eschar and silver wound gel to surrounding tissue. Cover with dressing daily * Wound nurse consult placed 02/03 * No change to current treatment plan (12) C. difficile diarrhea: Code(s): A04.72 - Enterocolitis due to Clostridium difficile, not specified as recurrent Status: Acute Assessment and Plan: 02/02 * Patient started having liquid BMs overnight * Has been on antibiotics Linezolid and Levofloxacin recently * C diff was positive * Started Dificid 02/03 * diarrhea less today * Continue Dificid Subjective Date/time seen: 02/03/25 14:38 Interval history: Interval history: This is a 69 year old female with a significant past medical history of CHF, type 2 DM, alcoholic cirrhosis of the liver with a current Meld score of 17, CKD stage 3a who presented to [facility] from [facility] for evaluation of pleural effusion. Prior to her admission to [facility], patient was initially seen and treated at [place] for evaluation after a ground level fall and hypotension. She was reporting knee pain after the fall and came in to [facility] for additional work up. Workup in the hospital at that time included an ultrasound of both lower extremities which were negative for DVT, knee x-ray showed a medial tibial plateau fracture without significant depression, CT of the abdomen and pelvis showed prominent common bile duct with a 4 mm stone in the distal common bile duct, multiple calcifications identified within the ivan hepaticus on prior studies without de finitive ductal obstruction. Knee CT was negative for fracture. GI and General surgery was consulted at that time and treating and decided to treat conservatively as she was not complaining gallbladder issues and this was likely an incidental finding. She started having increased work of breathing and we continue to diurese her however she didn't show signs of improvement. A CT of the chest, abdomen, pelvis was obtained and shown a moderate size pleural effusion likely secondary to her cirrhosis of the liver. She had a thoracentesis on 01/20/2025 yielding 1 L of pleural fluid. Since that time she continued to improve and was sent out on 01/25/2025 to [facility] for further rehab needs. Patient was doing well with her therapy and then started getting worsening short of breath and a chest x-ray shown worsening pleural effusion on the right lung with anasarca present. Her work of breathing worsened overnight requiring oxygen. She was then transferred back to [facility] with plans for a therapeutic thoracentesis and plans to transfer patient to tertiary hospital for hepatobiliary services. I spoke with [facility] transfer center at 1820 p.m. and re-initiated transfer to [facility] with Dr. Botello accepting. Wait time for medical bed at [facility] is around 1 week. Subjective: Patient reported worsening SOB again overnight and was placed on 2L NC. CXR this a.m. showing pleural effusion. Patient states her diarrhea is less today. Labs reviewed. Review of Systems Review of Systems: All systems reviewed & are unremarkable except as noted in HPI and below Exam Narrative: General: In no acute distress, well nourished Cardiac: Normal S1 and S2. No murmur, gallops or friction rubs, peripheral pulses intact. Respiratory: Diminished breath sounds right lower lobe, crackles in left lower lobe, no adventitious lung sounds, currently on 2L NC Gastrointestinal: taunt, distended, non-tender, normoactive bowel sounds. anasarca present,less bm's today : Urine yellow with dark red sediment Extremities: moves all extremities well, bilateral lower extremity edema Skin: Pressure injuries to right heel and buttocks with eschar noted to wound bed, bleeding edges Neuro: Alert and oriented x4 Objective Data Vital Signs Vital Signs: Vital Signs - 24 hr 02/02/25 16:21 02/02/25 20:00 02/02/25 20:40 Temperature 97.3 F L 97.2 F L Pulse Rate 72 74 Respiratory Rate 22 H 24 H Blood Pressure 109/69 126/44 L Pulse Oximetry 96 95 100 Oxygen Delivery Nasal Cannula Oxygen Flow Rate 2 02/02/25 20:41 02/03/25 00:00 02/03/25 04:00 Temperature 97.6 F 97.1 F L Pulse Rate 75 71 73 Respiratory Rate 20 16 Blood Pressure 105/44 L 107/46 L Pulse Oximetry 100 100 Oxygen Delivery Oxygen Flow Rate 02/03/25 08:00 02/03/25 08:18 02/03/25 09:01 Temperature 98.5 F Pulse Rate 76 Respiratory Rate 16 Blood Pressure 142/68 H Pulse Oximetry 100 98 Oxygen Delivery Nasal Cannula Nasal Cannula Oxygen Flow Rate 2 2 02/03/25 10:22 02/03/25 12:00 Temperature 98.3 F Pulse Rate 79 Respiratory Rate 18 Blood Pressure 103/41 L Pulse Oximetry 92 Oxygen Delivery Room Air Oxygen Flow Rate Intake/Output Intake/Output: Intake & Output 01/31/25 02/01/25 02/02/25 02/03/25 23:59 23:59 23:59 23:59 Intake Total 1328 1658 480 Output Total 1540 250 325 Balance -212 1408 155 Meds/Results Medications: Active Medications Generic Name Dose Route Start Last Admin Trade Name Freq PRN Reason Stop Dose Admin Acetaminophen 650 mg 01/31/25 18:13 02/03/25 09:30 Acetaminophen 325 Mg Tablet PO 650 mg Q4H PRN Administration Mild Pain (1-3) or Fever Albuterol 2.5 mg 01/31/25 18:16 Albuterol Sulfate Neb 2.5 Mg/3 Ml Inh INHALATION Q8HRT PRN shortness of breath or wheezing Alendronate Sodium 70 mg 02/04/25 09:00 Alendronate Sodium 70 Mg Tablet PO WEEKLY NEIL Ascorbic Acid 500 mg 02/01/25 09:00 02/03/25 09:01 Ascorbic Acid 500 Mg Tablet PO 500 mg DAILY NEIL Administration Atorvastatin Calcium 10 mg 02/01/25 09:00 02/03/25 09:01 Atorvastatin 10 Mg Tablet PO 10 mg QAM NEIL Administration Bumetanide 1 mg 02/02/25 09:00 02/03/25 09:01 Bumetanide 1 Mg Tablet PO 1 mg DAILY NEIL Administration Calcitriol 0.25 mcg 02/02/25 09:00 02/03/25 09:02 Calcitriol 0.25 Mcg Capsule PO 0.25 mcg [id number] NEIL Administration Carvedilol 6.25 mg 01/31/25 21:00 02/03/25 09:01 Carvedilol 6.25 Mg Tablet PO 6.25 mg Q12H NEIL Administration Collagenase 1 applic 02/02/25 09:00 02/03/25 09:02 Collagenase Oint 30 Gm Tube TOPICAL 1 applic QAM NEIL Administration Dextrose 12.5 gm 01/31/25 18:13 Dextrose 50% 25 Gm/50 Ml Syringe IV PUSH PRN PRN Hypoglycemia Protocol Empagliflozin 10 mg 02/01/25 09:00 02/03/25 09:01 Empagliflozin 10 Mg Tablet PO 10 mg DAILY NEIL Administration Ferrous Sulfate 325 mg 02/01/25 09:00 02/03/25 09:01 Ferrous Sulfate [address] BY MOUTH 325 mg DAILY NEIL Administration Fidaxomicin 200 mg 02/02/25 21:00 02/03/25 09:01 Fidaxomicin 200 Mg Tablet PO 02/12/25 20:59 200 mg Q12HR NEIL Administration Fluticasone Propionate 1 spray 01/31/25 18:16 Fluticasone Propionate 0.05% Na Spr 16 Gm Btl (*Bkc) NASAL DAILY PRN allergies Folic Acid 0.8 mg 02/01/25 09:00 02/03/25 09:00 Folic Acid 0.4 Mg Tablet PO 0.8 mg QAM NEIL Administration Glucagon 1 mg 01/31/25 18:13 Glucagon For Inj 1 Mg Vial IM PRN PRN Hypoglycemia Protocol Glucose 15 gm 01/31/25 18:13 Glucose Oral Gel 15 Gm Of Glucse In 37.5 Gm Tube PO PRN PRN Hypoglycemia Protocol Dextrose 1,000 mls @ 100 mls/hr 01/31/25 18:13 Dextrose 5% 1,000 Ml IVPB PRN PRN Hypoglycemia Protocol Insulin Aspart 4 - 8 units 02/01/25 08:00 02/03/25 12:00 Insulin Aspart (*Bkc) 100 Units/Ml SUB-Q Not Given TIDWM [facility] Protocol Insulin Aspart 2 - 4 units 01/31/25 21:00 02/02/25 20:42 Insulin Aspart (*Bkc) 100 Units/Ml SUB-Q Not Given HS [facility] Protocol Insulin Glargine 15 units 01/31/25 21:00 02/02/25 20:42 Insulin Glargine (*Bkc) 100 Units/Ml SUB-Q 15 units HS NEIL Administration Magnesium Oxide 200 mg 02/01/25 09:00 02/03/25 09:01 Magnesium Oxide 200 Mg Tablet PO 200 mg QAM NEIL Administration Methocarbamol 500 mg 01/31/25 22:00 02/03/25 12:19 Methocarbamol 500 Mg Tablet PO 500 mg Q8HR NEIL Administration Midodrine 10 mg 01/31/25 18:20 02/03/25 12:19 Midodrine Hcl 10 Mg Tablet PO 10 mg TID NEIL Administration Multivitamins/Calcium 1 tablet 02/01/25 09:00 02/03/25 09:01 Therapeutic Multivitamins/Minerals Tab (*Bkc) PO 1 tablet DAILY NEIL Administration Ondansetron HCl 4 mg 01/31/25 18:13 Ondansetron Inj 4 Mg/2 Ml Vial IV PUSH Q6H PRN Nausea And Vomiting Pantoprazole Sodium 40 mg 01/31/25 21:00 02/03/25 09:01 Pantoprazole 40 Mg Tablet PO 40 mg Q12HR NEIL Administration Senna 8.6 mg 01/31/25 18:16 Sennosides 8.6 Mg Tablet PO DAILY PRN constipation Spironolactone 50 mg 02/01/25 09:00 02/03/25 09:01 Spironolactone 50 Mg Tablet PO 50 mg QAM NEIL Administration Thiamine HCl 100 mg 02/01/25 09:00 02/03/25 09:01 Thiamine Hcl 100 Mg Tablet PO 100 mg QAM NEIL Administration Radiology Results: ITS Impressions Thoracentesis Ultrasound 02/01/25 09:56 IMPRESSION: 1. Successful ultrasound-guided thoracentesis yielding 1100 mL of clear yellow fluid. Chest X-Ray 02/03/25 08:52 IMPRESSION: Right basilar atelectasis versus pneumonia. Labs Labs: Laboratory Results - last 24 hr 02/02/25 02/02/25 02/02/25 15:03 16:28 20:13 WBC RBC Hgb Hct MCV MCH MCHC RDW Plt Count MPV Immature Gran % (Auto) Neut % (Auto) Lymph % (Auto) [place] % (Auto) Eos % (Auto) Baso % (Auto) Lymph # (Auto) [place] # (Auto) Eos # (Auto) Baso # (Auto) Abs Immat Gran (auto) Absolute Neuts (auto) Absolute Nucleated RBC Nucleated RBC % Sodium Potassium Chloride Carbon Dioxide Anion Gap BUN Creatinine Estim Creat Clear Calc Estimated GFR Glucose POC Capillary Glucose 187 H 153 H 192 H Calcium Total Bilirubin AST ALT Alkaline Phosphatase Total Protein Albumin 02/03/25 02/03/25 02/03/25 05:46 07:50 11:54 WBC 5.7 RBC 2.57 L Hgb 8.2 L Hct 25.6 L MCV 99.6 MCH 31.9 MCHC 32.0 RDW 16.2 H Plt Count 202 MPV 10.1 Immature Gran % (Auto) 0.3 Neut % (Auto) 69.1 Lymph % (Auto) 15.4 L [place] % (Auto) 8.4 Eos % (Auto) 6.1 H Baso % (Auto) 0.7 Lymph # (Auto) 0.88 L [place] # (Auto) 0.5 Eos # (Auto) 0.4 H Baso # (Auto) 0.0 Abs Immat Gran (auto) 0.02 Absolute Neuts (auto) 4.0 Absolute Nucleated RBC 0.000 Nucleated RBC % 0.0 Sodium 132 L Potassium 4.0 Chloride 97 L Carbon Dioxide 23 Anion Gap 12 BUN 29 H Creatinine 2.18 H Estim Creat Clear Calc 24 Estimated GFR 22 L Glucose 82 POC Capillary Glucose 85 137 H Calcium 8.7 Total Bilirubin 1.3 AST 22 ALT 13 Alkaline Phosphatase 232 H Total Protein 7.0 Albumin 3.8 Quality VTE Prophylaxis VTE prophylaxis: mechanical ordered
[2025-02-03 17:10] LABS: Glucose Point of Care 196 mg/dl (65-105)
[2025-02-03] MEDS: MIDODRINE HCL 2.5 MG TABLET 15 MG PO (17:17)
[2025-02-03] MEDS: BUMETANIDE INJ 1 MG/4 ML VIAL IV PUSH (17:17)
[2025-02-03] MEDS: INSULIN GLARGINE (*BKC) 100 UNITS/ML 15 UNITS SUB-Q (21:15)
[2025-02-03 21:23] LABS: Glucose Point of Care 141 mg/dl (65-105)
[2025-02-04] VITALS (12 sets, daily range): BP systolic 105–130; BP diastolic 50–58; PULSE 72–82; RESP 14–18; TEMP 35.9–36.8; O2SAT 98–100
[2025-02-04 05:53] LABS: Basophils Absolute Auto 0.1 K/mm3 (0.0-0.1); Basophils Percent Auto 0.9 % (0.2-1.2); Eosinophils Absolute Auto 0.5 K/mm3 (0-0.3); Eosinophils Percent Auto 9.9 % (0-4.4); Hematocrit 26.1 % (37.0-47.0); Hemoglobin 8.2 g/dL (12.0-15.0); Immature Granulocyte Absolute 0.02 K/mm3 (0.00-0.031); Immature Granulocyte Percent A 0.4 % (0-0.5); Lymphocytes Absolute Auto 0.69 K/mm3 (0.9-3.2); Lymphocytes Percent Auto 12.9 % (18.3-44.2); Mean Corpuscular HGB Conc 31.4 g/dl (32-36); Mean Corpuscular Hemoglobin 31.5 pg (26-34); Mean Corpuscular Volume 100.4 fl (80-100); Mean Platelet Volume 10.7 fl (7.4-10.4); Monocytes Absolute Auto 0.4 K/mm3 (0.1-0.6); Monocytes Percent Auto 6.9 % (2.6-8.5); Neutrophils Absolute Auto 3.7 K/mm3 (1.3-6.7); Platelet Count Result 182 k/mm3 (150-375); Red Cell Distribution Width 16.4 % (11.5-14.5); White Blood Count 5.4 K/mm3 (4.5-10.0)
[2025-02-04 06:09] LABS: Alanine Aminotransferase 13 U/L (6-35); Albumin Level 3.9 g/dL (3.5-5.1); Alkaline Phosphatase 261 U/L (38-126); Anion Gap 13 mmol/L (4-12); Aspartate Amino Transferase 25 U/L (14-36); Bilirubin,Total 1.3 mg/dL (0.2-1.3); Blood Urea Nitrogen 30 mg/dL (7-17); Calcium 8.8 mg/dL (8.4-10.2); Carbon Dioxide 25 mmol/L (22-30); Chloride 97 mmol/L (98-107); Estimated CRCL calculation 24 ml/min; Estimated Glomerular Filt Rate 23; Glucose 107 mg/dL (65-110); Sodium 135 mmol/L (137-145)
[2025-02-04 07:51] LABS: Glucose Point of Care 82 mg/dl (65-105)
[2025-02-04 08:53] LABS: INR 1.4; Prothrombin Time 17.6 Seconds (11.1-14.7)
[2025-02-04 08:54] LABS: Partial Thromboplastin Time 40.1 Seconds (22.3-36.8)
[2025-02-04] MEDS: MIDODRINE HCL 2.5 MG TABLET 15 MG PO ×2 (10:30→17:49)
[2025-02-04] MEDS: FIDAXOMICIN 200 MG TABLET PO ×2 (10:30→21:25)
[2025-02-04] MEDS: BUMETANIDE 1 MG TABLET PO (10:30)
[2025-02-04] MEDS: ATORVASTATIN 10 MG TABLET PO (10:31)
[2025-02-04] MEDS: SPIRONOLACTONE 25 MG TABLET 75 MG PO (10:31)
[2025-02-04] MEDS: carvediloL 6.25 MG TABLET PO ×2 (10:32→21:19)
[2025-02-04] MEDS: EMPAGLIFLOZIN 10 MG TABLET PO (10:32)
[2025-02-04] MEDS: COLLAGENASE OINT 30 GM TUBE 1 APPLIC TOPICAL (10:33)
[2025-02-04] MEDS: ALENDRONATE SODIUM 70 MG TABLET PO (10:33)
[2025-02-04 11:20] LABS: Glucose Point of Care 94 mg/dl (65-105)
--- NOTE | 2025-02-04 12:04 | P.PNIM_ITS ---
Progress Note: A&P Assessment and Plan (1) Pleural effusion: Code(s): J90 - Pleural effusion, not elsewhere classified Status: Acute Assessment and Plan: Likely secondary to worsening cirrhosis of the liver * NPO after midnight * Thoracentesis ordered for the morning 02/01 * Thoracentesis this morning yielded 1100 mL of pleural fluid * Will continue to monitor for recurrence 02/04 * Plan for thoracentesis today * Keep NPO until after procedure, then advance diet to diabetic diet as tolerated (2) Alcoholic cirrhosis of liver: Qualifiers: Ascites presence: without ascites Qualified Code(s): K70.30 - Alcoholic cirrhosis of liver without ascites Code(s): K70.30 - Alcoholic cirrhosis of liver without ascites Status: Chronic Assessment and Plan: * Meld score 17 currently * Plan for thoracentesis tomorrow morning * Continue NPO status * Transfer initiated to [facility] for hepatobiliary services, Dr. Botello accepting. Wait time for medical bed at [place] is around 1 week 02/01 * Post thoracentesis yielding 1100 mL of pleural fluid * Patient can advance diet back to a diabetic diet * Still awaiting transfer to [place] for hepatobiliary service 02/02 * Awaiting bed at [place] * Continue to monitor for re-occurring pleural effusions 02/03 * Requiring O2 over night * Will make NPO after midnight for Thoracentesis in the morning 02/04 * Currently on 2L NC * Continue NPO status until after procedure * Plan for thoracentesis at 2:30 p.m. (3) Anasarca: Code(s): R60.1 - Generalized edema Status: Acute Assessment and Plan: see above plan of care (4) Chronic diastolic CHF (congestive heart failure): Code(s): I50.32 - Chronic diastolic (congestive) heart failure Status: Acute Assessment and Plan: * Last echocardiogram showed normal LV systolic function with an estimated EF of 60-65%, grade 2 diastolic dysfunction * Continue Bumex and spironolactone 02/01 * No change to current treatment plan (5) Chronic kidney disease, stage 3: Qualifiers: Chronic kidney disease stage 3 subtype: stage 3b (GFR 30-44) Qualified Code(s): N18.32 - Chronic kidney disease, stage 3b Code(s): N18.30 - Chronic kidney disease, stage 3 unspecified Status: Chronic Assessment and Plan: * Creatinine 2.0, EGFR 25 * Baseline creatinine 1.52-1.82 * Continue to trend 12/04 * Creatinine today 1.88 * Near baseline * Continue to trend 12/05 * Creatinine 2.16 12/06 * Creatinine 2.18 * Will give 1 time dose of Bumex 1mg IV now 12/07 * Creatinine 2.15 * Will give another dose of IV Bumex now (6) Orthostatic hypotension: Code(s): I95.1 - Orthostatic hypotension Status: Acute Assessment and Plan: * Blood pressures ranging 107/61 to 113/56 * continue midodrine 02/01 * No change to current treatment plan 02/03 * Increased Midodrine to 15mg TID for her hypotension 02/04 * Tolerating increase in Midodrine to 15 mg TID * B/P ranging 121/52-127/53 (7) Portal venous hypertension: Code(s): K76.6 - Portal hypertension Status: Acute Assessment and Plan: * continue spironolactone 02/01 * No change to current treatment plan 02/02 * Increased spironolactone to 75mg daily considering her cirrhosis and fluid overload 02/04 * Increase spironolactone to 100mg daily now that blood pressure is better with Midodrine (8) Insulin dependent type 2 diabetes mellitus: Code(s): E11.9 - Type 2 diabetes mellitus without complications; Z79.4 - meterman (current) use of insulin Status: Chronic Assessment and Plan: * Blood sugars ranging * Hgb A1C 5.5 * Accu checks ACHS * High dose SSI ordered * Continue Lantus 15 units * Continue Jardiance * hypoglycemic protocol in place * Diabetic diet ordered 02/01 * No change to current treatment plan (9) Chronic anemia: Code(s): D64.9 - Anemia, unspecified Status: Chronic Assessment and Plan: Likely secondary to a combination of cirrhosis of the liver and CKD * Hgb 7.6 * continue ferrous sulfate 02/01 * Hemoglobin 8.0 * No change to current treatment plan (10) Hematuria: Code(s): R31.9 - Hematuria, unspecified Status: Acute Assessment and Plan: Pleitez catheter placed at [facility]. On arrival to [place] she was noted to have red tinged urine * Continue pleitez care * Aspirin on hold * INR ordered for the morning * Urology consulted 02/01 * Bladder scan yielding 106 mL * Urine still dark red, no clots * Urology to follow * Continue to hold aspirin 02/03 * pleitez catheter in place with red sediment * Urology recommending outpatient cystoscopy, no urgent intervention required at this time. 02/04 * no change in current treatment plan * Can restart aspirin now that urine has cleared (11) Decubitus ulcer: Code(s): L89.90 - Pressure ulcer of unspecified site, unspecified stage Status: Acute Assessment and Plan: * Continue daily dressing changes with santyl to eschar and silver wound gel to surrounding tissue. Cover with dressing daily * Wound nurse consult placed 02/03 * No change to current treatment plan (12) C. difficile diarrhea: Code(s): A04.72 - Enterocolitis due to Clostridium difficile, not specified as recurrent Status: Acute Assessment and Plan: 02/02 * Patient started having liquid BMs overnight * Has been on antibiotics Linezolid and Levofloxacin recently * C diff was positive * Started Dificid 02/03 * diarrhea less today * Continue Dificid 02/04 * No change to current treatment plan Time Spent With Patient Time with patient: 15 - 25 minutes Subjective Date/time seen: 02/04/25 12:04 Interval history: Interval history: This is a 69 year old female with a significant past medical history of CHF, type 2 DM, alcoholic cirrhosis of the liver with a current Meld score of 17, CKD stage 3a who presented to [facility] from [facility] for ev aluation of pleural effusion. Prior to her admission to [facility] program, patient was initially seen and treated at [place] for evaluation after a ground level fall and hypotension. She was reporting knee pain after the fall and came in to [facility] for additional work up. Workup in the hospital at that time included an ultrasound of both lower extremities which were negative for DVT, knee x-ray showed a medial tibial plateau fracture without significant depression, CT of the abdomen and pelvis showed prominent common bile duct with a 4 mm stone in the distal common bile duct, multiple calcifications identified within the ivan hepaticus on prior studies without definitive ductal obstruction. Knee CT was negative for fracture. GI and General surgery was consulted at that time and treating and decided to treat conservatively as she was not complaining gallbladder issues and this was likely an incidental finding. She started having increased work of breathing and we continue to diurese her however she didn't show signs of improvement. A CT of the chest, abdomen, pelvis was obtained and shown a moderate size pleural effusion likely secondary to her cirrhosis of the liver. She had a thoracentesis on 01/20/2025 yielding 1 L of pleural fluid. Since that time she continued to improve and was sent out on 01/25/[address] [facility] program for further rehab needs. Patient was doing well with her therapy and then started getting worsening short of breath and a chest x-ray shown worsening pleural effusion on the right lung with anasarca present. Her work of breathing worsened overnight requiring oxygen. She was then transferred back to [facility] with plans for a therapeutic thoracentesis and plans to transfer patient to tertiary hospital for hepatobiliary services. I spoke with [place] transfer center at 1820 p.m. and re-initiated transfer to [facility] with Dr. Botello accepting. Wait time for medical bed at [place] is ar ound 1 week. Subjective: Patient denies any new complaints today. She has thoracentesis planned for 2:30 this afternoon. She is currently on 2L NC. Labs reviewed. Awaiting bed at [place] for hepatobiliary services. Review of Systems Review of Systems: All systems reviewed & are unremarkable except as noted in HPI and below Exam Narrative: General: In no acute distress, well nourished Cardiac: Normal S1 and S2. No murmur, gallops or friction rubs, peripheral pulses intact. Respiratory: Diminished breath sounds right lower lobe, crackles in left lower lobe, no adventitious lung sounds, currently on 2L NC Gastrointestinal: taunt, distended, non-tender, normoactive bowel sounds. anasarca present,less bm's today : Urine yellow with small amount of dark red sediment Extremities: moves all extremities well, bilateral lower extremity edema Skin: Pressure injuries to right heel and buttocks with eschar noted to wound bed, bleeding edges Neuro: Alert and oriented x4 Objective Data Vital Signs Vital Signs: Vital Signs - 24 hr 02/03/25 16:00 02/03/25 20:00 02/03/25 21:12 Temperature 98.5 F 97.4 F L Pulse Rate 68 83 82 Respiratory Rate 16 16 Blood Pressure 110/56 L 122/57 L Pulse Oximetry 96 96 Oxygen Delivery Oxygen Flow Rate 02/03/25 21:12 02/04/25 00:00 02/04/25 01:45 Temperature 97.7 F Pulse Rate 75 75 Respiratory Rate 14 Blood Pressure 105/57 L Pulse Oximetry 100 100 98 Oxygen Delivery Nasal Cannula Nasal Cannula Oxygen Flow Rate 2 2 02/04/25 04:00 02/04/25 07:44 02/04/25 08:00 Temperature 98.2 F 96.8 F L Pulse Rate 72 72 74 Respiratory Rate 14 18 Blood Pressure 127/53 L 121/52 L Pulse Oximetry 99 99 100 Oxygen Delivery Nasal Cannula Oxygen Flow Rate 2 02/04/25 09:20 02/04/25 10:32 Temperature Pulse Rate 74 Respiratory Rate Blood Pressure Pulse Oximetry 99 Oxygen Delivery Nasal Cannula Oxygen Flow Rate 2 Intake/Output Intake/Output: Intake & Output 02/01/25 02/02/25 02/03/25 02/04/25 23:59 23:59 23:59 23:59 Intake Total 1328 1658 1820 700 Output Total 1540 250 325 100 Balance -212 1408 1495 600 Meds/Results Medications: Active Medications Generic Name Dose Route Start Last Admin Trade Name Freq PRN Reason Stop Dose Admin Acetaminophen 650 mg 01/31/25 18:13 02/03/25 09:30 Acetaminophen 325 Mg Tablet PO 650 mg Q4H PRN Administration Mild Pain (1-3) or Fever Albuterol 2.5 mg 01/31/25 18:16 Albuterol Sulfate Neb 2.5 Mg/3 Ml Inh INHALATION Q8HRT PRN shortness of breath or wheezing Alendronate Sodium 70 mg 02/04/25 09:00 02/04/25 10:33 Alendronate Sodium 70 Mg Tablet PO 70 mg WEEKLY NEIL Administration Ascorbic Acid 500 mg 02/01/25 09:00 02/04/25 10:30 Ascorbic Acid 500 Mg Tablet PO Not Given DAILY NEIL Atorvastatin Calcium 10 mg 02/01/25 09:00 02/04/25 10:31 Atorvastatin 10 Mg Tablet PO 10 mg QAM NEIL Administration Bumetanide 1 mg 02/02/25 09:00 02/04/25 10:30 Bumetanide 1 Mg Tablet PO 1 mg DAILY NEIL Administration Calcitriol 0.25 mcg 02/02/25 09:00 02/03/25 09:02 Calcitriol 0.25 Mcg Capsule PO 0.25 mcg [id number] NEIL Administration Carvedilol 6.25 mg 01/31/25 21:00 02/04/25 10:32 Carvedilol 6.25 Mg Tablet PO 6.25 mg Q12H NEIL Administration Collagenase 1 applic 02/02/25 09:00 02/04/25 10:33 Collagenase Oint 30 Gm Tube TOPICAL 1 applic QAM NEIL Administration Dextrose 12.5 gm 01/31/25 18:13 Dextrose 50% 25 Gm/50 Ml Syringe IV PUSH PRN PRN Hypoglycemia Protocol Empagliflozin 10 mg 02/01/25 09:00 02/04/25 10:32 Empagliflozin 10 Mg Tablet PO 10 mg DAILY NEIL Administration Ferrous Sulfate 325 mg 02/01/25 09:00 02/04/25 10:32 Ferrous Sulfate [address] BY MOUTH Not Given DAILY NEIL Fidaxomicin 200 mg 02/02/25 21:00 02/04/25 10:30 Fidaxomicin 200 Mg Tablet PO 02/12/25 20:59 200 mg Q12HR NEIL Administration Fluticasone Propionate 1 spray 01/31/25 18:16 Fluticasone Propionate 0.05% Na Spr 16 Gm Btl (*Bkc) NASAL DAILY PRN allergies Folic Acid 0.8 mg 02/01/25 09:00 02/04/25 10:31 Folic Acid 0.4 Mg Tablet PO Not Given QAM NEIL Glucagon 1 mg 01/31/25 18:13 Glucagon For Inj 1 Mg Vial IM PRN PRN Hypoglycemia Protocol Glucose 15 gm 01/31/25 18:13 Glucose Oral Gel 15 Gm Of Glucse In 37.5 Gm Tube PO PRN PRN Hypoglycemia Protocol Dextrose 1,000 mls @ 100 mls/hr 01/31/25 18:13 Dextrose 5% 1,000 Ml IVPB PRN PRN Hypoglycemia Protocol Insulin Aspart 4 - 8 units 02/01/25 08:00 02/04/25 11:38 Insulin Aspart (*Bkc) 100 Units/Ml SUB-Q Not Given TIDWM [facility] Protocol Insulin Aspart 2 - 4 units 01/31/25 21:00 02/03/25 21:14 Insulin Aspart (*Bkc) 100 Units/Ml SUB-Q Not Given HS [facility] Protocol Insulin Glargine 15 units 01/31/25 21:00 02/03/25 21:15 Insulin Glargine (*Bkc) 100 Units/Ml SUB-Q 15 units HS NEIL Administration Magnesium Oxide 200 mg 02/01/25 09:00 02/04/25 10:32 Magnesium Oxide 200 Mg Tablet PO Not Given QAM NEIL Methocarbamol 500 mg 01/31/25 22:00 02/04/25 06:18 Methocarbamol 500 Mg Tablet PO Not Given Q8HR NEIL Midodrine 15 mg 02/03/25 17:00 02/04/25 11:38 Midodrine Hcl 2.5 Mg Tablet PO Not Given TID [facility] Multivitamins/Calcium 1 tablet 02/01/25 09:00 02/04/25 10:31 Therapeutic Multivitamins/Minerals Tab (*Bkc) PO Not Given DAILY [facility] Ondansetron HCl 4 mg 01/31/25 18:13 Ondansetron Inj 4 Mg/2 Ml Vial IV PUSH Q6H PRN Nausea And Vomiting Pantoprazole Sodium 40 mg 01/31/25 21:00 02/04/25 10:33 Pantoprazole 40 Mg Tablet PO Not Given Q12HR [facility] Senna 8.6 mg 01/31/25 18:16 Sennosides 8.6 Mg Tablet PO DAILY PRN constipation Spironolactone 75 mg 02/04/25 09:00 02/04/25 10:31 Spironolactone 25 Mg Tablet PO 75 mg QAM [facility] Administration Thiamine HCl 100 mg 02/01/25 09:00 02/04/25 10:31 Thiamine Hcl 100 Mg Tablet PO Not Given QAM [facility] Radiology Results: ITS Impressions Thoracentesis Ultrasound 02/01/25 09:56 IMPRESSION: 1. Successful ultrasound-guided thoracentesis yielding 1100 mL of clear yellow fluid. Chest X-Ray 02/03/25 08:52 IMPRESSION: Right basilar atelectasis versus pneumonia. Labs Labs: Laboratory Results - last 24 hr 02/03/25 02/03/25 02/03/25 11:54 17:05 21:11 WBC RBC Hgb Hct MCV MCH MCHC RDW Plt Count MPV Immature Gran % (Auto) Neut % (Auto) Lymph % (Auto) Borden % (Auto) Eos % (Auto) Baso % (Auto) Lymph # (Auto) Borden # (Auto) Eos # (Auto) Baso # (Auto) Abs Immat Gran (auto) Absolute Neuts (auto) Absolute Nucleated RBC Nucleated RBC % PT INR APTT Sodium Potassium Chloride Carbon Dioxide Anion Gap BUN Creatinine Estim Creat Clear Calc Estimated GFR Glucose POC Capillary Glucose 137 H 196 H 141 H Calcium Total Bilirubin AST ALT Alkaline Phosphatase Total Protein Albumin 02/04/25 02/04/25 02/04/25 05:02 07:45 08:33 WBC 5.4 RBC 2.60 L Hgb 8.2 L Hct 26.1 L MCV 100.4 H MCH 31.5 MCHC 31.4 L RDW 16.4 H Plt Count 182 MPV 10.7 H Immature Gran % (Auto) 0.4 Neut % (Auto) 69.0 Lymph % (Auto) 12.9 L Borden % (Auto) 6.9 Eos % (Auto) 9.9 H Baso % (Auto) 0.9 Lymph # (Auto) 0.69 L Borden # (Auto) 0.4 Eos # (Auto) 0.5 H Baso # (Auto) 0.1 Abs Immat Gran (auto) 0.02 Absolute Neuts (auto) 3.7 Absolute Nucleated RBC 0.000 Nucleated RBC % 0.0 PT 17.6 H INR 1.4 APTT 40.1 H Sodium 135 L Potassium 4.0 Chloride 97 L Carbon Dioxide 25 Anion Gap 13 H BUN 30 H Creatinine 2.15 H Estim Creat Clear Calc 24 Estimated GFR 23 L Glucose 107 POC Capillary Glucose 82 Calcium 8.8 Total Bilirubin 1.3 AST 25 ALT 13 Alkaline Phosphatase 261 H Total Protein 7.0 Albumin 3.9 02/04/25 11:17 WBC RBC Hgb Hct MCV MCH MCHC RDW Plt Count MPV Immature Gran % (Auto) Neut % (Auto) Lymph % (Auto) Borden % (Auto) Eos % (Auto) Baso % (Auto) Lymph # (Auto) Borden # (Auto) Eos # (Auto) Baso # (Auto) Abs Immat Gran (auto) Absolute Neuts (auto) Absolute Nucleated RBC Nucleated RBC % PT INR APTT Sodium Potassium Chloride Carbon Dioxide Anion Gap BUN Creatinine Estim Creat Clear Calc Estimated GFR Glucose POC Capillary Glucose 94 Calcium Total Bilirubin AST ALT Alkaline Phosphatase Total Protein Albumin Quality VTE Prophylaxis VTE prophylaxis: mechanical ordered
[2025-02-04 17:04] LABS: Glucose Point of Care 69 mg/dl (65-105)
[2025-02-04] MEDS: BUMETANIDE INJ 1 MG/4 ML VIAL IV PUSH (17:49)
[2025-02-04] MEDS: INSULIN GLARGINE (*BKC) 100 UNITS/ML 15 UNITS SUB-Q (21:19)
[2025-02-04] MEDS: PANTOPRAZOLE 40 MG TABLET PO (21:25)
[2025-02-04] MEDS: methocarbamoL 500 MG TABLET PO (21:25)
[2025-02-04 21:36] LABS: Glucose Point of Care 151 mg/dl (65-105)
[2025-02-05] VITALS (10 sets, daily range): BP systolic 94–121; BP diastolic 40–57; PULSE 75–86; RESP 16–20; TEMP 36.4–36.8; O2SAT 92–100
[2025-02-05] MEDS: methocarbamoL 500 MG TABLET PO ×3 (05:10→21:43)
[2025-02-05 06:23] LABS: Basophils Absolute Auto 0.1 K/mm3 (0.0-0.1); Basophils Percent Auto 0.9 % (0.2-1.2); Eosinophils Absolute Auto 0.6 K/mm3 (0-0.3); Hematocrit 26.7 % (37.0-47.0); Hemoglobin 8.4 g/dL (12.0-15.0); Immature Granulocyte Absolute 0.03 K/mm3 (0.00-0.031); Immature Granulocyte Percent A 0.6 % (0-0.5); Lymphocytes Absolute Auto 0.75 K/mm3 (0.9-3.2); Lymphocytes Percent Auto 14.2 % (18.3-44.2); Mean Corpuscular HGB Conc 31.5 g/dl (32-36); Mean Corpuscular Hemoglobin 31.7 pg (26-34); Mean Corpuscular Volume 100.8 fl (80-100); Mean Platelet Volume 9.6 fl (7.4-10.4); Monocytes Absolute Auto 0.4 K/mm3 (0.1-0.6); Monocytes Percent Auto 6.6 % (2.6-8.5); Neutrophils Absolute Auto 3.5 K/mm3 (1.3-6.7); Neutrophils Percent Auto 66.7 % (45.5-73.1); Platelet Count Result 164 k/mm3 (150-375); Red Blood Count 2.65 M/mm3 (4.2-5.4); Red Cell Distribution Width 16.4 % (11.5-14.5); White Blood Count 5.3 K/mm3 (4.5-10.0)
[2025-02-05 06:35] LABS: Alanine Aminotransferase 13 U/L (6-35); Albumin Level 3.8 g/dL (3.5-5.1); Alkaline Phosphatase 252 U/L (38-126); Anion Gap 9 mmol/L (4-12); Aspartate Amino Transferase 26 U/L (14-36); Bilirubin,Total 1.6 mg/dL (0.2-1.3); Blood Urea Nitrogen 29 mg/dL (7-17); Calcium 8.6 mg/dL (8.4-10.2); Carbon Dioxide 27 mmol/L (22-30); Chloride 99 mmol/L (98-107); Estimated CRCL calculation 28 ml/min; Estimated Glomerular Filt Rate 27; Glucose 65 mg/dL (65-110); Potassium 3.6 mmol/L (3.4-5.0); Sodium 135 mmol/L (137-145)
[2025-02-05 07:56] LABS: Glucose Point of Care 76 mg/dl (65-105)
[2025-02-05] MEDS: COLLAGENASE OINT 30 GM TUBE 1 APPLIC TOPICAL (09:57)
[2025-02-05] MEDS: FOLIC ACID 0.4 MG TABLET 0.8 MG PO (10:05)
[2025-02-05] MEDS: THERAPEUTIC MULTIVITAMINS/MINERALS TAB (*BKC) 1 TABLET PO (10:05)
[2025-02-05] MEDS: EMPAGLIFLOZIN 10 MG TABLET PO (10:06)
[2025-02-05] MEDS: ASCORBIC ACID 500 MG TABLET PO (10:06)
[2025-02-05] MEDS: SPIRONOLACTONE 25 MG TABLET 100 MG PO (10:06)
[2025-02-05] MEDS: PANTOPRAZOLE 40 MG TABLET PO ×2 (10:06→21:43)
[2025-02-05] MEDS: carvediloL 6.25 MG TABLET PO ×2 (10:08→21:43)
[2025-02-05] MEDS: ATORVASTATIN 10 MG TABLET PO (10:08)
[2025-02-05] MEDS: THIAMINE HCL 100 MG TABLET PO (10:09)
[2025-02-05] MEDS: FIDAXOMICIN 200 MG TABLET PO ×2 (10:09→21:43)
[2025-02-05] MEDS: ASPIRIN 81 MG ENTERIC TABLET PO (10:09)
[2025-02-05] MEDS: FERROUS SULFATE 325 MG TABLET DR BY MOUTH (10:09)
[2025-02-05] MEDS: BUMETANIDE 1 MG TABLET PO (10:09)
[2025-02-05] MEDS: MAGNESIUM OXIDE 200 MG TABLET PO (10:10)
[2025-02-05] MEDS: MIDODRINE HCL 2.5 MG TABLET 15 MG PO ×3 (10:10→16:52)
[2025-02-05] MEDS: calcitrioL 0.25 MCG CAPSULE PO (10:14)
[2025-02-05 11:33] LABS: Glucose Point of Care 148 mg/dl (65-105)
--- NOTE | 2025-02-05 15:30 | P.PNIM_ITS ---
Progress Note: A&P Assessment and Plan (1) Pleural effusion: Code(s): J90 - Pleural effusion, not elsewhere classified Status: Acute Assessment and Plan: Likely secondary to worsening cirrhosis of the liver patient had thoracentesis x2 yielding 2100 mL * Serial chest x-rays * Wean oxygen currently waiting back to room air but was required at 1 time 7 L * She may need another thoracentesis if it continues to reaccumulate * Continue with Bumex and spironolactone (2) Alcoholic cirrhosis of liver: Qualifiers: Ascites presence: without ascites Qualified Code(s): K70.30 - Alcoholic cirrhosis of liver without ascites Code(s): K70.30 - Alcoholic cirrhosis of liver without ascites Status: Chronic Assessment and Plan: Patient with worsening cirrhosis of liver with anasarca and come home effusions, resolved ascites and esophageal varices Meld score 17 currently * Continue with diuresis and thoracentesis is needed * Patient is currently awaiting a bed at [facility] for hepatabillary (3) Anasarca: Code(s): R60.1 - Generalized edema Status: Acute Assessment and Plan: see above plan of care (4) Chronic diastolic CHF (congestive heart failure): Code(s): I50.32 - Chronic diastolic (congestive) heart failure Status: Acute Assessment and Plan: Last echocardiogram showed normal LV systolic function with an estimated EF of 60-65%, grade 2 diastolic dysfunction * Continue Bumex and spironolactone (5) Chronic kidney disease, stage 3: Qualifiers: Chronic kidney disease stage 3 subtype: stage 3b (GFR 30-44) Qualified Code(s): N18.32 - Chronic kidney disease, stage 3b Code(s): N18.30 - Chronic kidney disease, stage 3 unspecified Status: Chronic Assessment and Plan: * Creatinine 2.0, EGFR 25 * Baseline creatinine 1.52-1.82 * Monitor with diuresis * Avoid nephrotoxic drugs. * Monitor antihypertensive drug therapy. * Avoid NSAIDs. * Routine CMP monitoring GFR. * Monitor electrolytes especially potassium. * Routine follow-up with Nephrology as an outpatient. 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 Status: Chronic Assessment and Plan: * Blood sugars ranging * Hgb A1C 5.5 * Accu checks ACHS * High dose SSI ordered * Continue Lantus 15 units * Continue Jardiance * hypoglycemic protocol in place * Diabetic diet ordered (9) Chronic anemia: Code(s): D64.9 - Anemia, unspecified Status: Chronic Assessment and Plan: Likely secondary to a combination of cirrhosis of the liver and CKD * Hgb 7.6 * continue ferrous sulfate * Daily H&H * Transfuse if PRBC <7.0 (10) Hematuria: Code(s): R31.9 - Hematuria, unspecified Status: Acute Assessment and Plan: Pleitez catheter placed at [facility]. On arrival to [facility] she was noted to have red tinged urine * Continue pleitez care * Aspirin was on hold can resume now urine clear * Urology consulted * pleitez catheter in place with red sediment * Urology consulted and recommending outpatient cystoscopy, no urgent int ervention required at this time. (11) Decubitus ulcer: Code(s): L89.90 - Pressure ulcer of unspecified site, unspecified stage Status: Acute Assessment and Plan: Patient completed ABX therapy prior to transfer to [facility] * Continue daily dressing changes with santyl to eschar and silver wound gel to surrounding tissue. Cover with dressing daily * Wound nurse consult placed (12) C. difficile diarrhea: Code(s): A04.72 - Enterocolitis due to Clostridium difficile, not specified as recurrent Status: Acute Assessment and Plan: * Continue Dificid Plan Code status: Full code per patient DVT prophylaxis: SCD Stress ulcer prophylaxis: Protonix 40 daily PT/OT notes: PT OT ordered Disposition: Patient admission to medical unit currently waiting on transfer to to [facility] for further evaluation by either hepatobiliary team. Time Spent With Patient Time with patient: 15 - 25 minutes Subjective Date/time seen: 02/05/25 15:30 Interval history: Interval history: This is a 69 year old female with a significant past medical history of CHF, type 2 DM, alcoholic cirrhosis of the liver with a current Meld score of 17, CKD stage 3a who presented to [facility] from [facility] for evaluation of pleural effusion. Prior to her admission to [facility] program, A CT of the chest, abdomen, pelvis was obtained and shown a moderate size pleural effusion likely secondary to her cirrhosis of the liver. She was transferred back to [facility] with plans for a therapeutic thoracentesis and plans to transfer patient to tertiary hospital for hepatobiliary services. Subjective: Patient in no acute distress denies SOB and was on room air. ABD softer today, denied CP, N/V, and no further diarrhea. Review of Systems Review of Systems: All systems reviewed & are unremarkable except as noted in HPI and below Exam Const: General: comfortable and no acute distress HENMT: Face/Nose/Sinus: Normal nares present Mouth: Yes moist mucous membranes Eyes: General: appearance normal, both eyes and all related structures Sclera: sclerae normal Pupils: Equal, round and reactive pupils present EOM: EOMs intact bilaterally Neck: Neck: supple and no JVD Resp: Effort & Inspection: normal respiratory effort Auscultation: diminished lung sounds on the right in the lower lung freeman Cardio: Rate: regular rate Rhythm: regular rhythm GI: GI Palp: Yes Soft to palpation Auscultation: normal bowel sounds Skin: General skin exam: normal color and no rashes or lesions noted Wounds: no wounds Neuro: General: gait normal Speech: normal speech Motor exam (neuro): 5/5 motor strength present throughout Sensory Exam: normal sensation Extrem: General: normal to inspection Psych: Mental Status: mental status grossly normal Affect: normal affect Objective Data Vital Signs Vital Signs: Vital Signs - 24 hr 02/04/25 16:00 02/04/25 20:00 02/04/25 20:00 Temperature 97 F L 98.2 F Pulse Rate 78 80 82 Respiratory Rate 18 14 17 Blood Pressure 130/52 L 112/58 L Pulse Oximetry 100 98 99 Oxygen Delivery Nasal Cannula Oxygen Flow Rate 2 02/04/25 21:19 02/04/25 21:25 02/05/25 00:00 Temperature 98.2 F Pulse Rate 81 75 Respiratory Rate 18 Blood Pressure 110/45 L Pulse Oximetry 99 98 Oxygen Delivery Nasal Cannula Oxygen Flow Rate 2 02/05/25 04:00 02/05/25 07:58 02/05/25 08:00 Temperature 97.5 F L Pulse Rate 77 Respiratory Rate 18 Blood Pressure 115/51 L Pulse Oximetry 99 100 100 Oxygen Delivery Nasal Cannula Nasal Cannula Oxygen Flow Rate 1 1 02/05/25 08:30 02/05/25 10:08 02/05/25 14:20 Temperature Pulse Rate 76 76 79 Respiratory Rate 16 18 Blood Pressure 108/54 L 94/40 L Pulse Oximetry 95 95 Oxygen Delivery Oxygen Flow Rate Intake/Output Intake/Output: Intake & Output 02/02/25 02/03/25 02/04/25 02/05/25 23:59 23:59 23:59 23:59 Intake Total 1658 1820 1500 680 Output Total 527 722 2220 650 Balance 1408 1495 -400 30 Meds/Results Medications: Active Medications Generic Name Dose Route Start Last Admin Trade Name Freq PRN Reason Stop Dose Admin Acetaminophen 650 mg 01/31/25 18:13 02/03/25 09:30 Acetaminophen 325 Mg Tablet PO 650 mg Q4H PRN Administration Mild Pain (1-3) or Fever Albuterol 2.5 mg 01/31/25 18:16 Albuterol Sulfate Neb 2.5 Mg/3 Ml Inh INHALATION Q8HRT PRN shortness of breath or wheezing Alendronate Sodium 70 mg 02/04/25 09:00 02/04/25 10:33 Alendronate Sodium 70 Mg Tablet PO 70 mg WEEKLY NEIL Administration Ascorbic Acid 500 mg 02/01/25 09:00 02/05/25 10:06 Ascorbic Acid 500 Mg Tablet PO 500 mg DAILY NEIL Administration Aspirin 81 mg 02/05/25 09:00 02/05/25 10:09 Aspirin 81 Mg Enteric Tablet PO 81 mg DAILY NEIL Administration Atorvastatin Calcium 10 mg 02/01/25 09:00 02/05/25 10:08 Atorvastatin 10 Mg Tablet PO 10 mg QAM NEIL Administration Bumetanide 1 mg 02/02/25 09:00 02/05/25 10:09 Bumetanide 1 Mg Tablet PO 1 mg DAILY NEIL Administration Calcitriol 0.25 mcg 02/02/25 09:00 02/05/25 10:14 Calcitriol 0.25 Mcg Capsule PO 0.25 mcg [id number] NEIL Administration Carvedilol 6.25 mg 01/31/25 21:00 02/05/25 10:08 Carvedilol 6.25 Mg Tablet PO 6.25 mg Q12H NEIL Administration Collagenase 1 applic 02/02/25 09:00 02/05/25 09:57 Collagenase Oint 30 Gm Tube TOPICAL 1 applic QAM NEIL Administration Dextrose 12.5 gm 01/31/25 18:13 Dextrose 50% 25 Gm/50 Ml Syringe IV PUSH PRN PRN Hypoglycemia Protocol Empagliflozin 10 mg 02/01/25 09:00 02/05/25 10:06 Empagliflozin 10 Mg Tablet PO 10 mg DAILY NEIL Administration Ferrous Sulfate 325 mg 02/01/25 09:00 02/05/25 10:09 Ferrous Sulfate [address] BY MOUTH 325 mg DAILY NEIL Administration Fidaxomicin 200 mg 02/02/25 21:00 02/05/25 10:09 Fidaxomicin 200 Mg Tablet PO 02/12/25 20:59 200 mg Q12HR NEIL Administration Fluticasone Propionate 1 spray 01/31/25 18:16 Fluticasone Propionate 0.05% Na Spr 16 Gm Btl (*Bkc) NASAL DAILY PRN allergies Folic Acid 0.8 mg 02/01/25 09:00 02/05/25 10:05 Folic Acid 0.4 Mg Tablet PO 0.8 mg QAM NEIL Administration Glucagon 1 mg 01/31/25 18:13 Glucagon For Inj 1 Mg Vial IM PRN PRN Hypoglycemia Protocol Glucose 15 gm 01/31/25 18:13 Glucose Oral Gel 15 Gm Of Glucse In 37.5 Gm Tube PO PRN PRN Hypoglycemia Protocol Dextrose 1,000 mls @ 100 mls/hr 01/31/25 18:13 Dextrose 5% 1,000 Ml IVPB PRN PRN Hypoglycemia Protocol Insulin Aspart 4 - 8 units 02/01/25 08:00 02/05/25 11:57 Insulin Aspart (*Bkc) 100 Units/Ml SUB-Q Not Given TIDWM [facility] Protocol Insulin Aspart 2 - 4 units 01/31/25 21:00 02/04/25 21:25 Insulin Aspart (*Bkc) 100 Units/Ml SUB-Q Not Given HS [facility] Protocol Insulin Glargine 15 units 01/31/25 21:00 02/04/25 21:19 Insulin Glargine (*Bkc) 100 Units/Ml SUB-Q 15 units HS NEIL Administration Magnesium Oxide 200 mg 02/01/25 09:00 02/05/25 10:10 Magnesium Oxide 200 Mg Tablet PO 200 mg QAM NEIL Administration Methocarbamol 500 mg 01/31/25 22:00 02/05/25 14:23 Methocarbamol 500 Mg Tablet PO 500 mg Q8HR NEIL Administration Midodrine 15 mg 02/03/25 17:00 02/05/25 14:22 Midodrine Hcl 2.5 Mg Tablet PO 15 mg TID NEIL Administration Multivitamins/Calcium 1 tablet 02/01/25 09:00 02/05/25 10:05 Therapeutic Multivitamins/Minerals Tab (*Bkc) PO 1 tablet DAILY NEIL Administration Ondansetron HCl 4 mg 01/31/25 18:13 Ondansetron Inj 4 Mg/2 Ml Vial IV PUSH Q6H PRN Nausea And Vomiting Pantoprazole Sodium 40 mg 01/31/25 21:00 02/05/25 10:06 Pantoprazole 40 Mg Tablet PO 40 mg Q12HR NEIL Administration Senna 8.6 mg 01/31/25 18:16 Sennosides 8.6 Mg Tablet PO DAILY PRN constipation Spironolactone 100 mg 02/05/25 09:00 02/05/25 10:06 Spironolactone 25 Mg Tablet PO 100 mg QAM NEIL Administration Thiamine HCl 100 mg 02/01/25 09:00 02/05/25 10:09 Thiamine Hcl 100 Mg Tablet PO 100 mg QAM NEIL Administration Radiology Results: ITS Impressions Thoracentesis Ultrasound 02/04/25 15:01 IMPRESSION: 1. Successful ultrasound-guided thoracentesis yielding 1100 mL of yellowish fluid. Chest X-Ray 02/04/25 15:02 IMPRESSION: 1. Small bilateral pleural effusions, decreased on the right postthoracentesis. 2. Opacities at the dependent lower lungs most likely/atelectasis although differential includes pneumonia. Labs Labs: Laboratory Results - last 24 hr 02/04/25 02/04/25 02/05/25 16:44 21:22 06:18 WBC 5.3 RBC 2.65 L Hgb 8.4 L Hct 26.7 L MCV 100.8 H MCH 31.7 MCHC 31.5 L RDW 16.4 H Plt Count 164 MPV 9.6 Immature Gran % (Auto) 0.6 H Neut % (Auto) 66.7 Lymph % (Auto) 14.2 L [place] % (Auto) 6.6 Eos % (Auto) 11.0 H Baso % (Auto) 0.9 Lymph # (Auto) 0.75 L [place] # (Auto) 0.4 Eos # (Auto) 0.6 H Baso # (Auto) 0.1 Abs Immat Gran (auto) 0.03 Absolute Neuts (auto) 3.5 Absolute Nucleated RBC 0.000 Nucleated RBC % 0.0 Sodium 135 L Potassium 3.6 Chloride 99 Carbon Dioxide 27 Anion Gap 9 BUN 29 H Creatinine 1.87 H Estim Creat Clear Calc 28 Estimated GFR 27 L Glucose 65 POC Capillary Glucose 69 151 H Calcium 8.6 Total Bilirubin 1.6 H AST 26 ALT 13 Alkaline Phosphatase 252 H Total Protein 7.0 Albumin 3.8 02/05/25 02/05/25 07:52 11:24 WBC RBC Hgb Hct MCV MCH MCHC RDW Plt Count MPV Immature Gran % (Auto) Neut % (Auto) Lymph % (Auto) [place] % (Auto) Eos % (Auto) Baso % (Auto) Lymph # (Auto) [place] # (Auto) Eos # (Auto) Baso # (Auto) Abs Immat Gran (auto) Absolute Neuts (auto) Absolute Nucleated RBC Nucleated RBC % Sodium Potassium Chloride Carbon Dioxide Anion Gap BUN Creatinine Estim Creat Clear Calc Estimated GFR Glucose POC Capillary Glucose 76 148 H Calcium Total Bilirubin AST ALT Alkaline Phosphatase Total Protein Albumin Quality VTE Prophylaxis VTE prophylaxis: mechanical ordered -Patient's previous records reviewed on admission -ER notes reviewed in detail on admission -discussed all findings and current treatment plan with patient/Family/POA -Consultations reviewed for recommendations -Patient's disposition for safe discharge discussed with renal case manager Dictation performed by [employer] direct speech recognition software, therefore obstetric assistant variants and typographical errors may occur. Hospitalist MIPS Advance Care Plan I have confirmed that the patient's Advanced Care Plan is present, code status is documented, or surrogate decision maker is listed in patient medical record.: Yes Medication Reconciliation I have utilized all available resources to obtain, update and review the p atients current medications (includes all prescriptions, OTC, herbals, cannabis, and nutritional supplements).: Yes The patient is not eligible for med reconciliation; the patient is in a emergent medical situation where delaying treatment would jeopardize the patients health.: No
[2025-02-05 16:59] LABS: Glucose Point of Care 132 mg/dl (65-105)
[2025-02-05 20:47] LABS: Glucose Point of Care 177 mg/dl (65-105)
[2025-02-05] MEDS: INSULIN GLARGINE (*BKC) 100 UNITS/ML 15 UNITS SUB-Q (21:45)
[2025-02-06] VITALS (12 sets, daily range): BP systolic 102–133; BP diastolic 46–60; PULSE 69–80; RESP 16–22; TEMP 35.9–36.8; O2SAT 92–100
[2025-02-06] MEDS: methocarbamoL 500 MG TABLET PO ×3 (06:13→21:04)
[2025-02-06 06:43] LABS: Basophils Percent Auto 0.9 % (0.2-1.2); Eosinophils Absolute Auto 0.6 K/mm3 (0-0.3); Eosinophils Percent Auto 12.8 % (0-4.4); Hematocrit 26.4 % (37.0-47.0); Hemoglobin 8.1 g/dL (12.0-15.0); Immature Granulocyte Absolute 0.03 K/mm3 (0.00-0.031); Immature Granulocyte Percent A 0.6 % (0-0.5); Lymphocytes Absolute Auto 0.72 K/mm3 (0.9-3.2); Lymphocytes Percent Auto 15.4 % (18.3-44.2); Mean Corpuscular HGB Conc 30.7 g/dl (32-36); Mean Corpuscular Hemoglobin 31.5 pg (26-34); Mean Corpuscular Volume 102.7 fl (80-100); Mean Platelet Volume 10.1 fl (7.4-10.4); Monocytes Absolute Auto 0.4 K/mm3 (0.1-0.6); Monocytes Percent Auto 8.6 % (2.6-8.5); Neutrophils Absolute Auto 2.9 K/mm3 (1.3-6.7); Neutrophils Percent Auto 61.7 % (45.5-73.1); Platelet Count Result 136 k/mm3 (150-375); Red Blood Count 2.57 M/mm3 (4.2-5.4); Red Cell Distribution Width 16.4 % (11.5-14.5); White Blood Count 4.7 K/mm3 (4.5-10.0)
[2025-02-06 06:51] LABS: Alanine Aminotransferase 15 U/L (6-35); Albumin Level 3.6 g/dL (3.5-5.1); Alkaline Phosphatase 286 U/L (38-126); Anion Gap 10 mmol/L (4-12); Aspartate Amino Transferase 31 U/L (14-36); Bilirubin,Total 1.5 mg/dL (0.2-1.3); Blood Urea Nitrogen 28 mg/dL (7-17); Calcium 8.9 mg/dL (8.4-10.2); Carbon Dioxide 26 mmol/L (22-30); Chloride 98 mmol/L (98-107); Estimated CRCL calculation 29 ml/min; Estimated Glomerular Filt Rate 28; Glucose 122 mg/dL (65-110); Potassium 4.1 mmol/L (3.4-5.0); Sodium 134 mmol/L (137-145)
[2025-02-06 07:51] LABS: Glucose Point of Care 129 mg/dl (65-105)
[2025-02-06] MEDS: carvediloL 6.25 MG TABLET PO ×2 (09:02→21:04)
[2025-02-06] MEDS: ASCORBIC ACID 500 MG TABLET PO (09:02)
[2025-02-06] MEDS: BUMETANIDE 1 MG TABLET PO (09:02)
[2025-02-06] MEDS: ATORVASTATIN 10 MG TABLET PO (09:02)
[2025-02-06] MEDS: ASPIRIN 81 MG ENTERIC TABLET PO (09:02)
[2025-02-06] MEDS: EMPAGLIFLOZIN 10 MG TABLET PO (09:03)
[2025-02-06] MEDS: FOLIC ACID 0.4 MG TABLET 0.8 MG PO (09:03)
[2025-02-06] MEDS: FIDAXOMICIN 200 MG TABLET PO ×2 (09:03→21:04)
[2025-02-06] MEDS: MAGNESIUM OXIDE 200 MG TABLET PO (09:03)
[2025-02-06] MEDS: FERROUS SULFATE 325 MG TABLET DR BY MOUTH (09:03)
[2025-02-06] MEDS: PANTOPRAZOLE 40 MG TABLET PO ×2 (09:04→21:05)
[2025-02-06] MEDS: THERAPEUTIC MULTIVITAMINS/MINERALS TAB (*BKC) 1 TABLET PO (09:04)
[2025-02-06] MEDS: THIAMINE HCL 100 MG TABLET PO (09:04)
[2025-02-06] MEDS: MIDODRINE HCL 10 MG TABLET PO ×3 (09:04→17:38)
[2025-02-06] MEDS: SPIRONOLACTONE 25 MG TABLET 100 MG PO (09:04)
[2025-02-06] MEDS: MIDODRINE HCL 2.5 MG TABLET 5 MG PO ×3 (09:04→17:38)
[2025-02-06 11:30] LABS: Glucose Point of Care 157 mg/dl (65-105)
--- NOTE | 2025-02-06 12:13 | PC.NURSE ---
Patient c/o SOB sat 94%. Placed on 2 liters of oxygen. Sat 97.% Maru Borrero [employer] notified.
[2025-02-06] MEDS: COLLAGENASE OINT 30 GM TUBE 1 APPLIC TOPICAL (13:07)
--- NOTE | 2025-02-06 13:43 | P.PNIM_ITS ---
Progress Note: A&P Assessment and Plan (1) Pleural effusion: Code(s): J90 - Pleural effusion, not elsewhere classified Status: Acute Assessment and Plan: Likely secondary to worsening cirrhosis of the liver patient had thoracentesis x2 yielding 2100 mL, CXR 02/06/2025 shoing clear lung freeman. * Serial chest x-rays * Wean oxygen currently waiting back to room air but was required at 1 time 7 L * She may need another thoracentesis if it continues to reaccumulate * Continue with Bumex and spironolactone (2) Alcoholic cirrhosis of liver: Qualifiers: Ascites presence: without ascites Qualified Code(s): K70.30 - Alcoholic cirrhosis of liver without ascites Code(s): K70.30 - Alcoholic cirrhosis of liver without ascites Status: Chronic Assessment and Plan: Patient with worsening cirrhosis of liver with anasarca and come home effusions, resolved ascites and esophageal varices Meld score 17 currently. Gave extra dose of Bumex IV ABD with mild distention anasarca * Continue with diuresis and thoracentesis is needed * Patient is currently awaiting a bed at [facility] for hepatabillary (3) Anasarca: Code(s): R60.1 - Generalized edema Status: Acute Assessment and Plan: see above plan of care (4) Chronic diastolic CHF (congestive heart failure): Code(s): I50.32 - Chronic diastolic (congestive) heart failure Status: Acute Assessment and Plan: Last echocardiogram showed normal LV systolic function with an estimated EF of 60-65%, grade 2 diastolic dysfunction * Continue Bumex and spironolactone (5) Chronic kidney disease, stage 3: Qualifiers: Chronic kidney disease stage 3 subtype: stage 3b (GFR 30-44) Qualified Code(s): N18.32 - Chronic kidney disease, stage 3b Code(s): N18.30 - Chronic kidney disease, stage 3 unspecified Status: Chronic Assessment and Plan: * Creatinine 2.0, EGFR 25 * Baseline creatinine 1.52-1.82 * Monitor with diuresis * Avoid nephrotoxic drugs. * Monitor antihypertensive drug therapy. * Avoid NSAIDs. * Routine CMP monitoring GFR. * Monitor electrolytes especially potassium. * Routine follow-up with Nephrology as an outpatient. (6) Orthostatic hypotension: Code(s): I95.1 - Orthostatic hypotension Status: Acute Assessment and Plan: Blood pressures ranging 107/61 to 113/56 * continue midodrine increased to 15 mg TID (7) Portal venous hypertension: Code(s): K76.6 - Portal hypertension Status: Acute Assessment and Plan: * Continued with Increased spironolactone to 100mg daily now that blood pressure is better with Midodrine (8) Insulin dependent type 2 diabetes mellitus: Code(s): E11.9 - Type 2 diabetes mellitus without complications; Z79.4 - MCFP (current) use of insulin Status: Chronic Assessment and Plan: * Blood sugars ranging * Hgb A1C 5.5 * Accu checks ACHS * High dose SSI ordered * Continue Lantus 15 units * Continue Jardiance * hypoglycemic protocol in place * Diabetic diet ordered (9) Chronic anemia: Code(s): D64.9 - Anemia, unspecified Status: Chronic Assessment and Plan: Likely secondary to a combination of cirrhosis of the liver and CKD * Hgb 7.6 * continue ferrous sulfate * Daily H&H * Transfuse if PRBC <7.0 (10) Hematuria: Code(s): R31.9 - Hematuria, unspecified Status: Acute Assessment and Plan: Pleitez catheter placed at [facility]. On arrival to [place] she was noted to have red tinged urine * Continue pleitez care * Aspirin was on hold can resume now urine clear * Urology consulted * pleitez catheter in place with red sediment * Urology consulted and recommending outpatient cystoscopy, no urgent intervention required at this time. (11) Decubitus ulcer: Code(s): L89.90 - Pressure ulcer of unspecified site, unspecified stage Status: Acute Assessment and Plan: Patient completed ABX therapy prior to transfer to [facility] * Continue daily dressing changes with santyl to eschar and silver wound gel to surrounding tissue. Cover with dressing daily * Wound nurse consult placed (12) C. difficile diarrhea: Code(s): A04.72 - Enterocolitis due to Clostridium difficile, not specified as recurrent Status: Acute Assessment and Plan: * Continue Dificid Plan Code status: Full code per patient DVT prophylaxis: SCD Stress ulcer prophylaxis: Protonix 40 daily PT/OT notes: PT OT ordered Disposition: Patient admission to medical unit currently waiting on transfer to to [facility] for further evaluation by either hepatobiliary team. Time Spent With Patient Time with patient: 15 - 25 minutes Subjective Date/time seen: 02/06/25 13:43 Interval history: Interval history: This is a 69 year old female with a significant past medical history of CHF, type 2 DM, alcoholic cirrhosis of the liver with a current Meld score of 17, CKD stage 3a who presented to [facility] from [facility] for evaluation of pleural effusion. Prior to her admission to [facility] program, A CT of the chest, abdomen, pelvis was obtained and shown a moderate size pleural effusion likely secondary to her cirrhosis of the liver. She was transferred back to [facility] with plans for a therapeutic thoracentesis and plans to transfer patient to tertiary hospital for hepatobiliary services. Subjective: Patient in no acute distress denies SOB and was on room air intermittently. ABD mildly distended today, denied CP, N/V, and no further diarrhea. Still waiting on bed at [facility] Review of Systems Review of Systems: All systems reviewed & are unremarkable except as noted in HPI and below Exam Const: General: comfortable and no acute distress HENMT: Face/Nose/Sinus: Normal nares present Mouth: Yes moist mucous membranes Eyes: General: appearance normal, both eyes and all related structures Sclera: sclerae normal Pupils: Equal, round and reactive pupils present EOM: EOMs intact bilaterally Neck: Neck: supple and no JVD Resp: Effort & Inspection: normal respiratory effort Auscultation: diminished lung sounds on the right in the lower lung freeman Cardio: Rate: regular rate Rhythm: regular rhythm GI: Auscultation: normal bowel sounds Skin: General skin exam: normal color and no rashes or lesions noted Wounds: no wounds Neuro: General: gait normal Cranial nerves: Yes Equal, round and reactive pupils present Speech: normal speech Motor exam (neuro): 5/5 motor strength present throughout Sensory Exam: normal sensation Extrem: General: normal to inspection Psych: Mental Status: mental status grossly normal Affect: normal affect Objective Data Vital Signs Vital Signs: Vital Signs - 24 hr 02/05/25 14:20 02/05/25 16:00 02/05/25 16:00 Temperature 97.8 F Pulse Rate 79 79 Respiratory Rate 18 18 Blood Pressure 94/40 L 121/57 L Pulse Oximetry 95 96 96 Oxygen Delivery Room Air Oxygen Flow Rate Fraction of Inspired Oxygen 02/05/25 20:00 02/05/25 20:00 02/05/25 21:18 Temperature 97.6 F Pulse Rate 81 86 Respiratory Rate 20 Blood Pressure 115/51 L Pulse Oximetry 96 92 Oxygen Delivery Room Air Room Air Oxygen Flow Rate Fraction of Inspired Oxygen 02/06/25 00:00 02/06/25 02:20 02/06/25 04:00 Temperature 96.6 F L 98.2 F Pulse Rate 72 69 72 Respiratory Rate 22 H 18 Blood Pressure 102/58 L 115/52 L Pulse Oximetry 92 99 97 Oxygen Delivery Nasal Cannula Oxygen Flow Rate 2 Fraction of Inspired Oxygen 02/06/25 07:10 02/06/25 08:00 02/06/25 09:01 Temperature Pulse Rate 74 Respiratory Rate 18 Blood Pressure 123/54 L Pulse Oximetry 93 95 Oxygen Delivery Room Air Room Air Oxygen Flow Rate Fraction of Inspired Oxygen 21 02/06/25 09:02 02/06/25 12:00 Temperature 98.1 F Pulse Rate 79 73 Respiratory Rate 18 Blood Pressure 116/46 L Pulse Oximetry 100 Oxygen Delivery Oxygen Flow Rate Fraction of Inspired Oxygen Intake/Output Intake/Output: Intake & Output 02/03/25 02/04/25 02/05/25 02/06/25 23:59 23:59 23:59 23:59 Intake Total 1820 1500 1040 557 Output Total 325 1900 1250 500 Balance 1495 -400 -210 57 Meds/Results Medications: Active Medications Generic Name Dose Route Start Last Admin Trade Name Freq PRN Reason Stop Dose Admin Acetaminophen 650 mg 01/31/25 18:13 02/03/25 09:30 Acetaminophen 325 Mg Tablet PO 650 mg Q4H PRN Administration Mild Pain (1-3) or Fever Albuterol 2.5 mg 01/31/25 18:16 Albuterol Sulfate Neb 2.5 Mg/3 Ml Inh INHALATION Q8HRT PRN shortness of breath or wheezing Alendronate Sodium 70 mg 02/04/25 09:00 02/04/25 10:33 Alendronate Sodium 70 Mg Tablet PO 70 mg WEEKLY NEIL Administration Ascorbic Acid 500 mg 02/01/25 09:00 02/06/25 09:02 Ascorbic Acid 500 Mg Tablet PO 500 mg DAILY NEIL Administration Aspirin 81 mg 02/05/25 09:00 02/06/25 09:02 Aspirin 81 Mg Enteric Tablet PO 81 mg DAILY NEIL Administration Atorvastatin Calcium 10 mg 02/01/25 09:00 02/06/25 09:02 Atorvastatin 10 Mg Tablet PO 10 mg QAM NEIL Administration Bumetanide 1 mg 02/02/25 09:00 02/06/25 09:02 Bumetanide 1 Mg Tablet PO 1 mg DAILY NEIL Administration Calcitriol 0.25 mcg 02/02/25 09:00 02/05/25 10:14 Calcitriol 0.25 Mcg Capsule PO 0.25 mcg [id number] NEIL Administration Carvedilol 6.25 mg 01/31/25 21:00 02/06/25 09:02 Carvedilol 6.25 Mg Tablet PO 6.25 mg Q12H NEIL Administration Collagenase 1 applic 02/02/25 09:00 02/06/25 13:07 Collagenase Oint 30 Gm Tube TOPICAL 1 applic QAM NEIL Administration Dextrose 12.5 gm 01/31/25 18:13 Dextrose 50% 25 Gm/50 Ml Syringe IV PUSH PRN PRN Hypoglycemia Protocol Empagliflozin 10 mg 02/01/25 09:00 02/06/25 09:03 Empagliflozin 10 Mg Tablet PO 10 mg DAILY NEIL Administration Ferrous Sulfate 325 mg 02/01/25 09:00 02/06/25 09:03 Ferrous Sulfate [address] BY MOUTH 325 mg DAILY NEIL Administration Fidaxomicin 200 mg 02/02/25 21:00 02/06/25 09:03 Fidaxomicin 200 Mg Tablet PO 02/12/25 20:59 200 mg Q12HR NEIL Administration Fluticasone Propionate 1 spray 01/31/25 18:16 Fluticasone Propionate 0.05% Na Spr 16 Gm Btl (*Bkc) NASAL DAILY PRN allergies Folic Acid 0.8 mg 02/01/25 09:00 02/06/25 09:03 Folic Acid 0.4 Mg Tablet PO 0.8 mg QAM NEIL Administration Glucagon 1 mg 01/31/25 18:13 Glucagon For Inj 1 Mg Vial IM PRN PRN Hypoglycemia Protocol Glucose 15 gm 01/31/25 18:13 Glucose Oral Gel 15 Gm Of Glucse In 37.5 Gm Tube PO PRN PRN Hypoglycemia Protocol Dextrose 1,000 mls @ 100 mls/hr 01/31/25 18:13 Dextrose 5% 1,000 Ml IVPB PRN PRN Hypoglycemia Protocol Insulin Aspart 4 - 8 units 02/01/25 08:00 02/06/25 11:37 Insulin Aspart (*Bkc) 100 Units/Ml SUB-Q Not Given TIDWM NEIL Protocol Insulin Aspart 2 - 4 units 01/31/25 21:00 04/23/25 21:29 Insulin Aspart (*Bkc) 100 Units/Ml SUB-Q Not Given HS [facility] Protocol Insulin Glargine 15 units 01/31/25 21:00 02/05/25 21:45 Insulin Glargine (*Bkc) 100 Units/Ml SUB-Q 15 units HS NEIL Administration Magnesium Oxide 200 mg 02/01/25 09:00 02/06/25 09:03 Magnesium Oxide 200 Mg Tablet PO 200 mg QAM NEIL Administration Methocarbamol 500 mg 01/31/25 22:00 02/06/25 13:07 Methocarbamol 500 Mg Tablet PO 500 mg Q8HR NEIL Administration Midodrine 5 mg 02/06/25 09:00 02/06/25 13:08 Midodrine Hcl 2.5 Mg Tablet PO 5 mg TID NEIL Administration Midodrine 10 mg 02/06/25 09:00 02/06/25 13:09 Midodrine Hcl 10 Mg Tablet PO 10 mg TID NEIL Administration Multivitamins/Calcium 1 tablet 02/01/25 09:00 02/06/25 09:04 Therapeutic Multivitamins/Minerals Tab (*Bkc) PO 1 tablet DAILY NEIL Administration Ondansetron HCl 4 mg 01/31/25 18:13 Ondansetron Inj 4 Mg/2 Ml Vial IV PUSH Q6H PRN Nausea And Vomiting Pantoprazole Sodium 40 mg 01/31/25 21:00 02/06/25 09:04 Pantoprazole 40 Mg Tablet PO 40 mg Q12HR NEIL Administration Senna 8.6 mg 01/31/25 18:16 Sennosides 8.6 Mg Tablet PO DAILY PRN constipation Spironolactone 100 mg 02/05/25 09:00 02/06/25 09:04 Spironolactone 25 Mg Tablet PO 100 mg QAM [facility] Administration Thiamine HCl 100 mg 02/01/25 09:00 02/06/25 09:04 Thiamine Hcl 100 Mg Tablet PO 100 mg QAM [facility] Administration Radiology Results: ITS Impressions Thoracentesis Ultrasound 02/04/25 15:01 IMPRESSION: 1. Successful ultrasound-guided thoracentesis yielding 1100 mL of yellowish fluid. Chest X-Ray 02/06/25 13:32 Impression: Clear lungs. Labs Labs: Laboratory Results - last 24 hr 02/05/25 02/05/25 02/06/25 16:48 20:41 06:27 WBC 4.7 RBC 2.57 L Hgb 8.1 L Hct 26.4 L MCV 102.7 H MCH 31.5 MCHC 30.7 L RDW 16.4 H Plt Count 136 L MPV 10.1 Immature Gran % (Auto) 0.6 H Neut % (Auto) 61.7 Lymph % (Auto) 15.4 L Thayer % (Auto) 8.6 H Eos % (Auto) 12.8 H Baso % (Auto) 0.9 Lymph # (Auto) 0.72 L Thayer # (Auto) 0.4 Eos # (Auto) 0.6 H Baso # (Auto) 0.0 Abs Immat Gran (auto) 0.03 Absolute Neuts (auto) 2.9 Absolute Nucleated RBC 0.000 Nucleated RBC % 0.0 Sodium 134 L Potassium 4.1 Chloride 98 Carbon Dioxide 26 Anion Gap 10 BUN 28 H Creatinine 1.78 H Estim Creat Clear Calc 29 Estimated GFR 28 L Glucose 122 H POC Capillary Glucose 132 H 177 H Calcium 8.9 Total Bilirubin 1.5 H AST 31 ALT 15 Alkaline Phosphatase 286 H Total Protein 6.0 L Albumin 3.6 02/06/25 02/06/25 07:46 11:16 WBC RBC Hgb Hct MCV MCH MCHC RDW Plt Count MPV Immature Gran % (Auto) Neut % (Auto) Lymph % (Auto) Thayer % (Auto) Eos % (Auto) Baso % (Auto) Lymph # (Auto) Thayer # (Auto) Eos # (Auto) Baso # (Auto) Abs Immat Gran (auto) Absolute Neuts (auto) Absolute Nucleated RBC Nucleated RBC % Sodium Potassium Chloride Carbon Dioxide Anion Gap BUN Creatinine Estim Creat Clear Calc Estimated GFR Glucose POC Capillary Glucose 129 H 157 H Calcium Total Bilirubin AST ALT Alkaline Phosphatase Total Protein Albumin Quality VTE Prophylaxis VTE prophylaxis: mechanical ordered -Patient's previous records reviewed on admission -ER notes reviewed in detail on admission -discussed all findings and current treatment plan with patient/Family/POA -Consultations reviewed for recommendations -Patient's disposition for safe discharge discussed with case management manager Dictation performed by [email or web address] direct speech recognition software, therefore sketcher variants and typographical errors may occur. Hospitalist MIPS Advance Care Plan I have confirmed that the patient's Advanced Care Plan is present, code status is documented, or surrogate decision maker is listed in patient medical record.: Yes Medication Reconciliation I have utilized all available resources to obtain, update and review the patients current medications (includes all prescriptions, OTC, herbals, cannabis, and nutritional supplements).: Yes The patient is not eligible for med reconciliation; the patient is in a emergent medical situation where delaying treatment would jeopardize the patients health.: No
[2025-02-06] MEDS: BUMETANIDE INJ 1 MG/4 ML VIAL IV PUSH (13:59)
[2025-02-06 17:02] LABS: Glucose Point of Care 168 mg/dl (65-105)
[2025-02-06] MEDS: INSULIN GLARGINE (*BKC) 100 UNITS/ML 15 UNITS SUB-Q (21:05)
[2025-02-06 21:10] LABS: Glucose Point of Care 197 mg/dl (65-105)
[2025-02-07] VITALS (9 sets, daily range): BP systolic 108–128; BP diastolic 48–56; PULSE 64–84; RESP 16–18; TEMP 35.8–36.6; O2SAT 94–100
[2025-02-07] MEDS: methocarbamoL 500 MG TABLET PO ×2 (06:09→13:26)
[2025-02-07 06:22] LABS: Basophils Absolute Auto 0.1 K/mm3 (0.0-0.1); Eosinophils Absolute Auto 0.5 K/mm3 (0-0.3); Eosinophils Percent Auto 10.6 % (0-4.4); Hematocrit 25.6 % (37.0-47.0); Immature Granulocyte Absolute 0.01 K/mm3 (0.00-0.031); Immature Granulocyte Percent A 0.2 % (0-0.5); Lymphocytes Absolute Auto 0.88 K/mm3 (0.9-3.2); Lymphocytes Percent Auto 17.9 % (18.3-44.2); Mean Corpuscular HGB Conc 31.3 g/dl (32-36); Mean Corpuscular Hemoglobin 31.3 pg (26-34); Mean Platelet Volume 10.4 fl (7.4-10.4); Monocytes Absolute Auto 0.5 K/mm3 (0.1-0.6); Monocytes Percent Auto 9.1 % (2.6-8.5); Neutrophils Percent Auto 61.2 % (45.5-73.1); Platelet Count Result 125 k/mm3 (150-375); Red Blood Count 2.56 M/mm3 (4.2-5.4); Red Cell Distribution Width 16.2 % (11.5-14.5); White Blood Count 4.9 K/mm3 (4.5-10.0)
[2025-02-07 06:32] LABS: Alanine Aminotransferase 17 U/L (6-35); Albumin Level 3.7 g/dL (3.5-5.1); Alkaline Phosphatase 317 U/L (38-126); Anion Gap 10 mmol/L (4-12); Aspartate Amino Transferase 34 U/L (14-36); Bilirubin,Total 1.4 mg/dL (0.2-1.3); Blood Urea Nitrogen 26 mg/dL (7-17); Calcium 8.8 mg/dL (8.4-10.2); Carbon Dioxide 27 mmol/L (22-30); Chloride 97 mmol/L (98-107); Estimated CRCL calculation 33 ml/min; Estimated Glomerular Filt Rate 33; Glucose 123 mg/dL (65-110); Potassium 3.7 mmol/L (3.4-5.0); Sodium 134 mmol/L (137-145)
[2025-02-07 07:53] LABS: Glucose Point of Care 117 mg/dl (65-105)
[2025-02-07] MEDS: FIDAXOMICIN 200 MG TABLET PO ×2 (09:04→20:43)
[2025-02-07] MEDS: calcitrioL 0.25 MCG CAPSULE PO (09:04)
[2025-02-07] MEDS: BUMETANIDE 1 MG TABLET PO (09:04)
[2025-02-07] MEDS: ATORVASTATIN 10 MG TABLET PO (09:04)
[2025-02-07] MEDS: EMPAGLIFLOZIN 10 MG TABLET PO (09:04)
[2025-02-07] MEDS: SPIRONOLACTONE 25 MG TABLET 100 MG PO (09:05)
[2025-02-07] MEDS: MIDODRINE HCL 2.5 MG TABLET 5 MG PO ×3 (09:05→17:21)
[2025-02-07] MEDS: MIDODRINE HCL 10 MG TABLET PO ×3 (09:05→17:21)
[2025-02-07] MEDS: FERROUS SULFATE 325 MG TABLET DR BY MOUTH (09:06)
[2025-02-07] MEDS: MAGNESIUM OXIDE 200 MG TABLET PO (09:06)
[2025-02-07] MEDS: THERAPEUTIC MULTIVITAMINS/MINERALS TAB (*BKC) 1 TABLET PO (09:06)
[2025-02-07] MEDS: carvediloL 6.25 MG TABLET PO ×2 (09:06→20:43)
[2025-02-07] MEDS: ASPIRIN 81 MG ENTERIC TABLET PO (09:06)
[2025-02-07] MEDS: THIAMINE HCL 100 MG TABLET PO (09:06)
[2025-02-07] MEDS: FOLIC ACID 0.4 MG TABLET 0.8 MG PO (09:06)
[2025-02-07] MEDS: ASCORBIC ACID 500 MG TABLET PO (09:07)
[2025-02-07] MEDS: PANTOPRAZOLE 40 MG TABLET PO ×2 (09:07→20:43)
[2025-02-07] MEDS: COLLAGENASE OINT 30 GM TUBE 1 APPLIC TOPICAL (09:07)
[2025-02-07 09:21] LABS: Magnesium 1.9 mg/dL (1.6-2.3)
[2025-02-07 09:32] LABS: INR 1.3; Prothrombin Time 16.9 Seconds (11.1-14.7)
--- NOTE | 2025-02-07 10:18 | PCOTNOTE ---
Attempted to see Patient at this time. Patient declined at this time due to having some increased shortness of breath, increased nausea, requesting an emesis basin. RN notified and aware.
[2025-02-07] MEDS: ONDANSETRON INJ 4 MG/2 ML VIAL IV PUSH (10:36)
[2025-02-07 11:41] LABS: Glucose Point of Care 133 mg/dl (65-105)
--- NOTE | 2025-02-07 12:05 | P.PNIM_ITS ---
Progress Note: A&P Assessment and Plan (1) Pleural effusion: Code(s): J90 - Pleural effusion, not elsewhere classified Status: Acute Assessment and Plan: Likely secondary to worsening cirrhosis of the liver patient had thoracentesis x2 yielding 2100 mL, CXR 02/06/2025 shoing clear lung freeman. * Serial chest x-rays * Wean oxygen currently waiting back to room air but was required at 1 time 7 L * She may need another thoracentesis if it continues to reaccumulate * Continue with Bumex and spironolactone (2) Alcoholic cirrhosis of liver: Qualifiers: Ascites presence: without ascites Qualified Code(s): K70.30 - Alcoholic cirrhosis of liver without ascites Code(s): K70.30 - Alcoholic cirrhosis of liver without ascites Status: Chronic Assessment and Plan: Patient with worsening cirrhosis of liver with anasarca and come home effusions, resolved ascites and esophageal varices Meld score 17 currently. Gave extra dose of Bumex IV ABD with mild distention anasarca * Continue with diuresis and thoracentesis is needed * Patient is currently awaiting a bed at [facility] for hepatabillary (3) Anasarca: Code(s): R60.1 - Generalized edema Status: Acute Assessment and Plan: see above plan of care (4) Chronic diastolic CHF (congestive heart failure): Code(s): I50.32 - Chronic diastolic (congestive) heart failure Status: Acute Assessment and Plan: Last echocardiogram showed normal LV systolic function with an estimated EF of 60-65%, grade 2 diastolic dysfunction * Continue Bumex and spironolactone (5) Chronic kidney disease, stage 3: Qualifiers: Chronic kidney disease stage 3 subtype: stage 3b (GFR 30-44) Qualified Code(s): N18.32 - Chronic kidney disease, stage 3b Code(s): N18.30 - Chronic kidney disease, stage 3 unspecified Status: Chronic Assessment and Plan: * Creatinine 1.55, EGFR 33 * Baseline creatinine 1.52-1.82 * Monitor with diuresis * Avoid nephrotoxic drugs. * Monitor antihypertensive drug therapy. * Avoid NSAIDs. * Routine CMP monitoring GFR. * Monitor electrolytes especially potassium. * Routine follow-up with Nephrology as an outpatient. (6) Orthostatic hypotension: Code(s): I95.1 - Orthostatic hypotension Status: Acute Assessment and Plan: Blood pressures ranging 114/56 to 128/56. * continue midodrine increased to 15 mg TID (7) Portal venous hypertension: Code(s): K76.6 - Portal hypertension Status: Acute Assessment and Plan: * Continued with Increased spironolactone to 100mg daily now that blood pressure is better with Midodrine (8) Insulin dependent type 2 diabetes mellitus: Code(s): E11.9 - Type 2 diabetes mellitus without complications; Z79.4 - skilled nursing (current) use of insulin Status: Chronic Assessment and Plan: * Blood sugars ranging * Hgb A1C 5.5 * Accu checks ACHS * High dose SSI ordered * Continue Lantus 15 units * Continue Jardiance * hypoglycemic protocol in place * Diabetic diet ordered (9) Chronic anemia: Code(s): D64.9 - Anemia, unspecified Status: Chronic Assessment and Plan: Likely secondary to a combination of cirrhosis of the liver and CKD * Hgb 7.6 * continue ferrous sulfate * Daily H&H * Transfuse if PRBC <7.0 (10) Hematuria: Code(s): R31.9 - Hematuria, unspecified Status: Acute Assessment and Plan: Pleitez catheter placed at [facility]. On arrival to [place] she was noted to have red tinged urine * Continue pleitez care * Aspirin was on hold can resume now urine clear * Urology consulted * pleitez catheter in place with red sediment * Urology consulted and recommending outpatient cystoscopy, no urgent intervention required at this time. (11) Decubitus ulcer: Code(s): L89.90 - Pressure ulcer of unspecified site, unspecified stage Status: Acute Assessment and Plan: Patient completed ABX therapy prior to transfer to [place] * Continue daily dressing changes with santyl to eschar and silver wound gel to surrounding tissue. Cover with dressing daily * Wound nurse consult placed (12) C. difficile diarrhea: Code(s): A04.72 - Enterocolitis due to Clostridium difficile, not specified as recurrent Status: Acute Assessment and Plan: * Continue Dificid Plan Code status: Full code per patient DVT prophylaxis: SCD Stress ulcer prophylaxis: Protonix 40 daily PT/OT notes: PT OT ordered Disposition: Patient admission to medical unit currently waiting on transfer to to [facility] for further evaluation by either hepatobiliary team. Subjective Date/time seen: 02/07/25 12:05 Interval history: Patient denies chest pain, shortness of breath, headache, dizziness, nausea, or vomiting. Sitting up in bed. Patient has been waiting for a transfer to [facility], patient has been on list for over a week. Called [facility] to get patient on their bed list, patient accepted. Radiology to push images to [facility]. Review of Systems Review of Systems: All systems reviewed & are unremarkable except as noted in HPI and below Exam Const: General: comfortable and no acute distress Resp: Effort & Inspection: normal respiratory effort Auscultation: diminished lung sounds on the right in the lower lung freeman GI: GI Palp: Yes Soft to palpation Auscultation: normal bowel sounds Skin: Other: Wound to sacral and right heel, both are improving with pink edges. Foam dressing intact to both areas. Neuro: Speech: normal speech Extrem: General: no pedal edema Psych: Mental Status: mental status grossly normal Affect: normal affect Objective Data Vital Signs Vital Signs: Vital Signs - 24 hr 02/06/25 16:00 02/06/25 20:00 02/06/25 20:00 Temperature 98 F 97.8 F Pulse Rate 80 79 Respiratory Rate 18 16 Blood Pressure 133/60 111/51 L Pulse Oximetry 100 98 Oxygen Delivery Room Air Oxygen Flow Rate Fraction of Inspired Oxygen 02/06/25 20:36 02/06/25 21:04 02/07/25 04:00 Temperature 97.9 F Pulse Rate 77 74 70 Respiratory Rate 18 16 Blood Pressure 108/48 L Pulse Oximetry 94 96 Oxygen Delivery Room Air Oxygen Flow Rate Fraction of Inspired Oxygen 02/07/25 07:58 02/07/25 08:20 02/07/25 09:06 Temperature 96.5 F L Pulse Rate 73 78 64 Respiratory Rate 16 18 Blood Pressure 108/48 L Pulse Oximetry 100 100 Oxygen Delivery Nasal Cannula Oxygen Flow Rate 2 Fraction of Inspired Oxygen 28 02/07/25 09:08 Temperature Pulse Rate Respiratory Rate Blood Pressure Pulse Oximetry 94 Oxygen Delivery Room Air Oxygen Flow Rate Fraction of Inspired Oxygen 21 Intake/Output Intake/Output: Intake & Output 02/04/25 02/05/25 02/06/25 02/07/25 23:59 23:59 23:59 23:59 Intake Total 1500 1040 1571 240 Output Total 1900 1250 2425 500 Balance -400 -210 -854 -260 Meds/Results Medications: Active Medications Generic Name Dose Route Start Last Admin Trade Name Freq PRN Reason Stop Dose Admin Acetaminophen 650 mg 01/31/25 18:13 02/03/25 09:30 Acetaminophen 325 Mg Tablet PO 650 mg Q4H PRN Administration Mild Pain (1-3) or Fever Albuterol 2.5 mg 01/31/25 18:16 Albuterol Sulfate Neb 2.5 Mg/3 Ml Inh INHALATION Q8HRT PRN shortness of breath or wheezing Alendronate Sodium 70 mg 02/04/25 09:00 02/04/25 10:33 Alendronate Sodium 70 Mg Tablet PO 70 mg WEEKLY NEIL Administration Ascorbic Acid 500 mg 02/01/25 09:00 02/07/25 09:07 Ascorbic Acid 500 Mg Tablet PO 500 mg DAILY NEIL Administration Aspirin 81 mg 02/05/25 09:00 02/07/25 09:06 Aspirin 81 Mg Enteric Tablet PO 81 mg DAILY NEIL Administration Atorvastatin Calcium 10 mg 02/01/25 09:00 02/07/25 09:04 Atorvastatin 10 Mg Tablet PO 10 mg QAM NEIL Administration Bumetanide 1 mg 02/02/25 09:00 02/07/25 09:04 Bumetanide 1 Mg Tablet PO 1 mg DAILY NEIL Administration Calcitriol 0.25 mcg 02/02/25 09:00 02/07/25 09:04 Calcitriol 0.25 Mcg Capsule PO 0.25 mcg [id number] NEIL Administration Carvedilol 6.25 mg 01/31/25 21:00 02/07/25 09:06 Carvedilol 6.25 Mg Tablet PO 6.25 mg Q12H NEIL Administration Collagenase 1 applic 02/02/25 09:00 02/07/25 09:07 Collagenase Oint 30 Gm Tube TOPICAL 1 applic QAM NEIL Administration Dextrose 12.5 gm 01/31/25 18:13 Dextrose 50% 25 Gm/50 Ml Syringe IV PUSH PRN PRN Hypoglycemia Protocol Empagliflozin 10 mg 02/01/25 09:00 02/07/25 09:04 Empagliflozin 10 Mg Tablet PO 10 mg DAILY NEIL Administration Ferrous Sulfate 325 mg 02/01/25 09:00 02/07/25 09:06 Ferrous Sulfate [address] BY MOUTH 325 mg DAILY NEIL Administration Fidaxomicin 200 mg 02/02/25 21:00 02/07/25 09:04 Fidaxomicin 200 Mg Tablet PO 02/12/25 20:59 200 mg Q12HR NEIL Administration Fluticasone Propionate 1 spray 01/31/25 18:16 Fluticasone Propionate 0.05% Na Spr 16 Gm Btl (*Bkc) NASAL DAILY PRN allergies Folic Acid 0.8 mg 02/01/25 09:00 02/07/25 09:06 Folic Acid 0.4 Mg Tablet PO 0.8 mg QAM NEIL Administration Glucagon 1 mg 01/31/25 18:13 Glucagon For Inj 1 Mg Vial IM PRN PRN Hypoglycemia Protocol Glucose 15 gm 01/31/25 18:13 Glucose Oral Gel 15 Gm Of Glucse In 37.5 Gm Tube PO PRN PRN Hypoglycemia Protocol Dextrose 1,000 mls @ 100 mls/hr 01/31/25 18:13 Dextrose 5% 1,000 Ml IVPB PRN PRN Hypoglycemia Protocol Insulin Aspart 4 - 8 units 02/01/25 08:00 02/07/25 11:59 Insulin Aspart (*Bkc) 100 Units/Ml SUB-Q Not Given TIDWM NEIL Protocol Insulin Aspart 2 - 4 units 01/31/25 21:00 02/06/25 21:05 Insulin Aspart (*Bkc) 100 Units/Ml SUB-Q Not Given HS NEIL Protocol Insulin Glargine 15 units 01/31/25 21:00 02/06/25 21:05 Insulin Glargine (*Bkc) 100 Units/Ml SUB-Q 15 units HS NEIL Administration Magnesium Oxide 200 mg 02/01/25 09:00 02/07/25 09:06 Magnesium Oxide 200 Mg Tablet PO 200 mg QAM NEIL Administration Methocarbamol 500 mg 01/31/25 22:00 02/07/25 06:09 Methocarbamol 500 Mg Tablet PO 500 mg Q8HR NEIL Administration Midodrine 5 mg 02/06/25 09:00 02/07/25 09:05 Midodrine Hcl 2.5 Mg Tablet PO 5 mg TID NEIL Administration Midodrine 10 mg 02/06/25 09:00 02/07/25 09:05 Midodrine Hcl 10 Mg Tablet PO 10 mg TID NEIL Administration Multivitamins/Calcium 1 tablet 02/01/25 09:00 02/07/25 09:06 Therapeutic Multivitamins/Minerals Tab (*Bkc) PO 1 tablet DAILY NEIL Administration Ondansetron HCl 4 mg 01/31/25 18:13 02/07/25 10:36 Ondansetron Inj 4 Mg/2 Ml Vial IV PUSH 4 mg Q6H PRN Administration Nausea And Vomiting Pantoprazole Sodium 40 mg 01/31/25 21:00 02/07/25 09:07 Pantoprazole 40 Mg Tablet PO 40 mg Q12HR NEIL Administration Senna 8.6 mg 01/31/25 18:16 Sennosides 8.6 Mg Tablet PO DAILY PRN constipation Spironolactone 100 mg 02/05/25 09:00 02/07/25 09:05 Spironolactone 25 Mg Tablet PO 100 mg QAM NEIL Administration Thiamine HCl 100 mg 02/01/25 09:00 02/07/25 09:06 Thiamine Hcl 100 Mg Tablet PO 100 mg QAM NEIL Administration Radiology Results: ITS Impressions Thoracentesis Ultrasound 02/04/25 15:01 IMPRESSION: 1. Successful ultrasound-guided thoracentesis yielding 1100 mL of yellowish fluid. Chest X-Ray 02/06/25 13:32 Impression: Clear lungs. Labs Labs: Laboratory Results - last 24 hr 02/06/25 02/06/25 02/07/25 16:58 21:03 05:44 WBC 4.9 RBC 2.56 L Hgb 8.0 L Hct 25.6 L MCV 100.0 MCH 31.3 MCHC 31.3 L RDW 16.2 H Plt Count 125 L MPV 10.4 Immature Gran % (Auto) 0.2 Neut % (Auto) 61.2 Lymph % (Auto) 17.9 L Warren % (Auto) 9.1 H Eos % (Auto) 10.6 H Baso % (Auto) 1.0 Lymph # (Auto) 0.88 L Warren # (Auto) 0.5 Eos # (Auto) 0.5 H Baso # (Auto) 0.1 Abs Immat Gran (auto) 0.01 Absolute Neuts (auto) 3.0 Absolute Nucleated RBC 0.000 Nucleated RBC % 0.0 PT INR Sodium 134 L Potassium 3.7 Chloride 97 L Carbon Dioxide 27 Anion Gap 10 BUN 26 H Creatinine 1.55 H Estim Creat Clear Calc 33 Estimated GFR 33 L Glucose 123 H POC Capillary Glucose 168 H 197 H Calcium 8.8 Magnesium Total Bilirubin 1.4 H AST 34 ALT 17 Alkaline Phosphatase 317 H Total Protein 7.0 Albumin 3.7 02/07/25 02/07/25 02/07/25 07:44 08:59 11:30 WBC RBC Hgb Hct MCV MCH MCHC RDW Plt Count MPV Immature Gran % (Auto) Neut % (Auto) Lymph % (Auto) Warren % (Auto) Eos % (Auto) Baso % (Auto) Lymph # (Auto) Warren # (Auto) Eos # (Auto) Baso # (Auto) Abs Immat Gran (auto) Absolute Neuts (auto) Absolute Nucleated RBC Nucleated RBC % PT 16.9 H INR 1.3 Sodium Potassium Chloride Carbon Dioxide Anion Gap BUN Creatinine Estim Creat Clear Calc Estimated GFR Glucose POC Capillary Glucose 117 H 133 H Calcium Magnesium 1.9 Total Bilirubin AST ALT Alkaline Phosphatase Total Protein Albumin Quality VTE Prophylaxis VTE prophylaxis: mechanical ordered
--- NOTE | 2025-02-07 14:00 | PCPTNOTE ---
Patient declined PT due to nausea and diarrhea. PT will continue to follow.
[2025-02-07 16:51] LABS: Glucose Point of Care 138 mg/dl (65-105)
[2025-02-07] MEDS: INSULIN GLARGINE (*BKC) 100 UNITS/ML 15 UNITS SUB-Q (20:43)
[2025-02-07 20:55] LABS: Glucose Point of Care 176 mg/dl (65-105)
--- NOTE | 2025-02-08 07:08 | P.TS_ITS ---
Transfer Discharge Sum: Prov Provider Date of admission: 01/31/25 17:16 Primary care physician: Ghanshyam Ruiz APRN Admitting clinician: Melinda Gant MD Consults: 01/31/25 21:28 Consult to Physician Routine Comment: Spoke to exchange @0918 02/01 [facility] Consulting Provider: Ion Lopez scallop raker/MD group to consult: Gu Reason for consultation: hematuria Has provider been notified: Yes 02/01/25 Wound/ET Consult Routine Reason for Consult:: Decubitus ulcers to buttocks and right heel Attending physician on discharge: Abdirizak Paredes Discharging clinician: Petra Kurtz Anticipated date of transfer: 02/07/25 Receiving physician/facility: Accepted by [facility] Hepatobiliary and Hospitalist. DS: Admitting Diagnosis Discharge Date 02/07/25 Admitting Diagnosis Pleural effusion DS: Discharge Diagnosis Discharge Diagnosis (1) Pleural effusion: Code(s): J90 - Pleural effusion, not elsewhere classified Status: Acute (2) Alcoholic cirrhosis of liver with ascites: Code(s): K70.31 - Alcoholic cirrhosis of liver with ascites Status: Acute (3) Anasarca: Code(s): R60.1 - Generalized edema Status: Acute (4) Chronic diastolic CHF (congestive heart failure): Code(s): I50.32 - Chronic diastolic (congestive) heart failure Status: Acute (5) Chronic kidney disease, stage 3: Qualifiers: Chronic kidney disease stage 3 subtype: stage 3b (GFR 30-44) Qualified Code(s): N18.32 - Chronic kidney disease, stage 3b Code(s): N18.30 - Chronic kidney disease, stage 3 unspecified Status: Chronic (6) Orthostatic hypotension: Code(s): I95.1 - Orthostatic hypotension Status: Acute (7) Insulin dependent type 2 diabetes mellitus: Code(s): E11.9 - Type 2 diabetes mellitus without complications; Z79.4 - alf (current) use of insulin Status: Chronic (8) Chronic anemia: Code(s): D64.9 - Anemia, unspecified Status: Chronic (9) Hematuria: Code(s): R31.9 - Hematuria, unspecified Status: Acute (10) Decubitus ulcer: Code(s): L89.90 - Pressure ulcer of unspecified site, unspecified stage Status: Acute (11) C. difficile diarrhea: Code(s): A04.72 - Enterocolitis due to Clostridium difficile, not specified as recurrent Status: Acute Transfer Discharge Sum: Med Medications Active and Home Medications: Home Medications fluticasone propionate 50 mcg/actuation nasal spray,suspension 1 spray in tranasal DAILY PRN allergies 08/16/20 [History Confirmed 01/31/25] thiamine HCl (vitamin B1) 100 mg tablet (Vitamin B-1) 100 mg PO QAM #30 tabs 08/18/20 [Rx Confirmed 01/31/25] qleqibhonwfs-Uw-iqzx-minerals (Multiple Vitamin, Womens tablet) 1 tablet PO DAILY #30 tabs 01/16/21 [Rx Confirmed 01/31/25] mecobalamin (vitamin B12) 1,000 mcg chewable tablet 3,000 mcg PO DAILY 05/13/21 [History Confirmed 01/31/25] pyridoxine (vitamin B6) 100 mg tablet 100 mg PO DAILY 05/13/21 [History Confirmed 01/31/25] magnesium oxide 400 mg (241.3 mg magnesium) tablet 250 mg PO QAM 06/06/21 [History Confirmed 01/31/25] blood sugar diagnostic #360 ea 10/31/22 [Rx Confirmed 01/31/25] empagliflozin 10 mg tablet (Jardiance) 10 mg PO DAILY #30 tabs 10/26/23 [Rx Confirmed 01/31/25] alendronate 70 mg tablet 70 mg PO WEEKLY #12 tabs 12/12/23 [Rx Confirmed 01/31/25] atorvastatin 10 mg tablet 10 mg PO QAM #90 tabs 06/10/24 [Rx Confirmed 01/31/25] ascorbate calcium (vitamin C) 500 mg tablet 500 mg PO DAILY 06/20/24 [History Confirmed 01/31/25] aspirin 81 mg tablet,delayed release 81 mg PO DAILY 06/20/24 [History Confirmed 01/31/25] folic acid 800 mcg tablet 0.8 mg PO DAILY 06/20/24 [History Confirmed 01/31/25] calcitriol 0.25 mcg capsule 0.25 mcg PO 4XW #16 caps 08/23/24 [Rx Confirmed 01/31/25] pen needle, diabetic 32 gauge x 32 (BD Muriel 2nd Gen Pen Needle) #360 ea 09/11/24 [Rx Confirmed 01/31/25] blood-glucose sensor (Dexcom G7 Sensor device) #3 ea 09/13/24 [Rx Confirmed 01/31/25] potassium chloride 10 mEq capsule,extended release 10 meq PO DAILY #90 caps 09/30/24 [Rx Confirmed 01/31/25] insulin glargine 100 unit/mL (3 mL) subcutaneous pen (Lantus Solostar U-100 Insulin) See Rx Instructions .Route .COMPLEX #15 mL 10/25/24 [Rx Confirmed 01/31/25] carvedilol 6.25 mg tablet 6.25 mg PO Q12H #60 tabs 12/31/24 [Rx Confirmed 01/31/25] albuterol sulfate 2.5 mg/3 mL (0.083 %) solution for nebulization 2.5 mg inhalation Q8H PRN shortness of breath or wheezing 01/16/25 [History Confirmed 01/31/25] ferrous sulfate 325 mg (65 mg iron) tablet (Leonard-Time) 325 mg PO DAILY 01/16/25 [History Confirmed 01/31/25] insulin lispro 100 unit/mL subcutaneous pen (Humalog KwikPen (U-100) Insulin) 3 unit subcut TID 01/16/25 [History Confirmed 01/31/25] lanolin alcohols-mineral oil-w.petrolatum-ceresin topical cream 1 applic topical DAILY 01/16/25 [History Confirmed 01/31/25] midodrine 10 mg tablet 10 mg PO TID dizziness or vertigo 01/16/25 [History Confirmed 01/31/25] pantoprazole 40 mg tablet,delayed release 40 mg PO BID 01/16/25 [History Confirmed 01/31/25] sennosides 8.6 mg tablet (senna) 8.6 mg PO DAILY PRN constipation 01/16/25 [History Confirmed 01/31/25] bumetanide 1 mg tablet 1 mg PO DAILY #30 tabs 01/25/25 [Rx Confirmed 01/31/25] levofloxacin 750 mg tablet 750 mg PO Q48H 01/31/25 [History Confirmed 01/31/25] linezolid 600 mg tablet 600 mg PO Q12HR #1 tablet 01/31/25 [Rx Confirmed 01/31/25] spironolactone 25 mg tablet 50 mg PO QAM 01/31/25 [History Confirmed 01/31/25] Transfer Discharge Sum: Hosp Hospital Course Hospital course: Lou Islas is a 69 year old female with a significant past medical history of CHF, type 2 DM, alcoholic cirrhosis of the liver with a current Meld score of 17, CKD stage 3a who presented to [facility] from [facility] for evaluation of pleural effusion. Prior to her admission to [facility] program, patient was initially seen and treated at [place] for evaluation after a ground level fall and hypotension. She was reporting knee pain after the fall and came in to [facility] for additional work up. Workup in the hospital at that time included an ultrasound of both lower extremities which were negative for DVT, knee x-ray showed a medial tibial plateau fracture without significant depression, CT of the abdomen and pelvis showed prominent common bile duct with a 4 mm stone in the distal common bile duct, multiple calci fications identified within the ivan hepaticus on prior studies without definitive ductal obstruction. Knee CT was negative for fracture. GI and General surgery was consulted at that time and treating and decided to treat conservatively as she was not complaining gallbladder issues and this was likely an incidental finding. She started having increased work of breathing and we continue to diurese her however she didn't show signs of improvement. A CT of the chest, abdomen, pelvis was obtained and shown a moderate size pleural effusion likely secondary to her cirrhosis of the liver. She had a thoracentesis on 01/20/2025 yielding 1 L of pleural fluid. Since that time she continued to improve and was sent out on 01/25/2025 to [facility] for further rehab needs. Patient was doing well with her therapy and then started getting worsening short of breath and a chest x-ray shown worsening pleural effusion on the right lung with anasarca present. Her work of breathing worsened overnight requiring oxygen. She was then transferred back to [facility] with plans for a therapeutic thoracentesis and plans to transfer patient to tertiary hospital for hepatobiliary services . Originally placed on the [facility] list on 01/31/25. Radiology Results: ITS Impressions Chest X-Ray 02/01/25 09:27 IMPRESSION: 1. Decrease small right pleural effusion with associated basilar atelectasis and/or pneumonia post right thoracentesis. Thoracentesis Ultrasound 02/01/25 09:56 IMPRESSION: 1. Successful ultrasound-guided thoracentesis yielding 1100 mL of clear yellow fluid. Thoracentesis Ultrasound 02/04/25 15:01 IMPRESSION: 1. Successful ultrasound-guided thoracentesis yielding 1100 mL of yellowish fluid Chest X-Ray 02/06/25 13:32 Impression: Clear lungs. Pathology showed Final Diagnosis The white count is 6700. No differential is performed. However on screening there does appear to be predominance of neutrophils. The H/H is 8.3/26.7 with an RBC count of 2.66, normal is 4.2-5.4 million cubic mm. The patient has a normal MCV with a mildly elevated RDW. The MCH is mildly elevated with a normal MCHC. The platelet count is 594422. The patient's diagnoses are pressure ulcer heel of sacral region, insulin-dependent type 2 diabetes, alcoholic cirrhosis, chronic kidney disease stage 3 and anemia. Chemistries show an elevated 1 creatinine of 1.67 with high normal BUN. The albumin is low with an elevated alkaline phosphatase. Micro culture was performed on the right heel. Review of the smear does show anemia with a high MCH and a low MCHC. The RDW is increased. The white cells appear normal. 01/25 right foot grew pseudomonas aeruginosa and Group B strep. 01/26 back grew MRSA and Group B streptococcus. 02/01 Urine culture negative. Patient required Midodrine 15 mg PO TID. Patient treated with Bumex and Spironolactone. Patient had hematuria, urology consulted and recommended an outpatient cystoscopy. Patient transferred to [facility] on 02/07, Hospitalist service with [facility] accepted patient. Condition stable, serious. Time Spent with Patient Time attestation: Total time spent providing and/or coordinating transfer services: Total time spent: Greater than 30 minutes Exam Narrative: Exam Const: General: comfortab le and no acute di stress Resp: Effort & Inspectio n: normal respirat ory effort Auscul tation: diminished lung sounds on th e right in the low er lung freeman GI: GI Palp: Yes Soft to palpation Ausc ultation: normal b owel sounds Skin: Other: Wound to sacral and right h eel, both are impr oving with pink ed ges. Foam dressing intact to both ar eas. Neuro: Speech: normal spe ech Extrem: General: no pedal edema Psych: Mental Status: men jacinta status grossly normal Affect: n ormal affect DS: Data Data Completed and Pending Labs on day of discharge: Labs from last 24 hours 02/07/25 02/07/25 02/07/25 20:08 16:36 11:30 PT INR POC Capillary Glucose 176 H 138 H 133 H Magnesium 02/07/25 02/07/25 08:59 07:44 PT 16.9 H INR 1.3 POC Capillary Glucose 117 H Magnesium 1.9
== END 2025-02-07 23:01 | disposition short-term general hospital (02) | DRG 433 ==
PROVIDERS: Nurse Practitioner Acute Care; Admitting Provider Family Medicine; PCP Nurse Practitioner; Visit Provider Nurse Practitioner Family
DX: K70.30 Alcoholic cirrhosis of liver without ascites (principal); A04.72 Enterocolitis due to Clostridium difficile, not specified as recurrent; J90 Pleural effusion, not elsewhere classified; E87.1 Hypo-osmolality and hyponatremia; I13.0 Hypertensive heart and chronic kidney disease with heart failure and stage 1 through stage 4 chronic kidney disease, or unspecified chronic kidney disease; I50.32 Chronic diastolic (congestive) heart failure; K76.6 Portal hypertension; N18.32 Chronic kidney disease, stage 3b; E11.22 Type 2 diabetes mellitus with diabetic chronic kidney disease; I65.22 Occlusion and stenosis of left carotid artery; I95.1 Orthostatic hypotension; I87.2 Venous insufficiency (chronic) (peripheral); D63.8 Anemia in other chronic diseases classified elsewhere; K21.9 Gastro-esophageal reflux disease without esophagitis; R31.9 Hematuria, unspecified; L89.320 Pressure ulcer of left buttock, unstageable; L89.610 Pressure ulcer of right heel, unstageable; M81.0 Age-related osteoporosis without current pathological fracture; M19.90 Unspecified osteoarthritis, unspecified site; G47.33 Obstructive sleep apnea (adult) (pediatric); F10.10 Alcohol abuse, uncomplicated; Z96.641 Presence of right artificial hip joint; Z79.82 Long term (current) use of aspirin; Z79.4 Long term (current) use of insulin
CPT/HCPCS: 32555; 36415; 71045; 71046; 80053; 82948; 83735; 85025; 85610; 85730; 87086; 87493; 97110; 97161; 97166; 97530; 97535; A9270; J1815; J1939; J2405; J7040

== ENCOUNTER 2025-03-25 11:22 | Outpatient (CLI) | payer MEDICARE, SELFPAY ==
[2025-03-25 12:01] LABS: Hemoglobin A1C 4.6 % (<5.7)
[2025-03-25 12:03] LABS: Magnesium 1.6 mg/dL (1.6-2.3); Phosphorus 3.5 mg/dL (2.5-4.5)
[2025-03-25 12:04] LABS: Alanine Aminotransferase 15 U/L (6-35); Albumin Level 4.1 g/dL (3.5-5.1); Alkaline Phosphatase 390 U/L (38-126); Anion Gap 10 mmol/L (4-12); Aspartate Amino Transferase 33 U/L (14-36); Bilirubin,Total 1.4 mg/dL (0.2-1.3); Blood Urea Nitrogen 20 mg/dL (7-17); Calcium 9.2 mg/dL (8.4-10.2); Carbon Dioxide 24 mmol/L (22-30); Chloride 94 mmol/L (98-107); Cholesterol 133 mg/dL (0-200); Estimated Glomerular Filt Rate 46; Glucose 125 mg/dL (65-110); HDL Direct 81 mg/dL; Potassium 3.8 mmol/L (3.4-5.0); Sodium 128 mmol/L (137-145); Triglycerides 71 mg/dL (<150)
[2025-03-25 12:11] LABS: Creatinine Urine 13.8 mg/dL; Total Protein Urine Random 13 mg/dL; Ur Ttl Prot Creatinine Ratio 0.94 mg/mg (0-0.20)
[2025-03-25 12:15] LABS: Parathyroid Intact 75.3 pg/mL (14.5-75.2)
[2025-03-25 12:17] LABS: LDL Cholesterol Direct 34 mg/dL
[2025-03-25 12:29] LABS: Vitamin D 25 Hydroxy 44.5 ng/mL
--- OUTSIDE RECORDS SUMMARY | 2025-03-25 12:44 | XMS_ITS | Encounter Summary ---
Author Organization [facility] Healthcare Address [address] [place] [address] Care Team Providers Care Physical Therapy Aides Teacher Name Role Phone Augustus Birch MD Unavailable Ghanshyam Ruiz NP Primary Care Provider [phone] Encounter Details Date Type Department Care Team (Late st Contact Info) Description 01/31/2025 Hospital Encounter [facility] ADMIT [address] [place] [address] Kelvin Win MD [address] [facility] [place] [address] Social History Tobacco Use Types Packs/Day Years Used Date Smoking Tobacco: Former Cigarettes 1 30 Q uit: 2006 Smokeless Tobacco: Never [facility] Utilities Answer Date Recorded In the past 12 months has [employer], gas, oil, or water [employer] threatened to shut off services in your [...] How often do you attend chur or rastafari services? More than 4 times per year 11/12/2024 Do you belong to any clubs o r organizations such as anglican groups, unions, fraternal or athletic groups, or [...] any time in the past 12 m [facility], were you homeless or living in a halfway (including now)? No 11/12/2024 Personal Safety Answer [...] on file documented as of this encounter Plan of Treatment Not on file documented as of this encounter Visit Diagnoses Not on filedocumented in this encounter Additional Health Concerns Infection Onset Date Last Indicated Resolved Time C. difficile Comment:FROM OSH 02/04/2025 02/04/2025 documented as of this encounter Care Teams Physical Therapy Aides Teacher Relationship Specialty Start Date End Date Ghanshyam Ruiz, ALEJO [address] [place] [address] PCP - General Nurse Practitioner 09/03/24 Augustus Birch MD [address] [place] [address] Internal Medicine 04/17/19 documented as of this encounter
--- OUTSIDE RECORDS SUMMARY | 2025-03-25 12:44 | XMS_ITS ---
Author Organization [employer] [facility] [place] ([address]) Address [address] [place] [address] Care Team Providers Care Assorter Name Role Phone Ramesh Smith Primary Care Provider UnavailDr. Juan Doherty Unavailable [phone] Wilfrido Harley Unavailable Unavailable [facility], Provider Unavailable Unavailab le Allergies Allergen (clinical drug ingredient) Drug/Non Drug Allergy documented on EMR Reaction Allergy Type Onset Date Status codeine Codeine Unknown Drug Allergy Active [facility] Encounter Medications Medication SIG (Take, [...] Active Encounters Encounter Location Date Provider Diagnosis [facility] [place] [place] [address] 03/30/2024 Provider [facility] Plan Of Treatment No Information Progress Notes * Lizzeth ISLAShDOB:1955 (69 yo F)Acc No.[id number]:03/30/2024 Patient: Lou HARRIS Provider: Edel Taylor :1955 A ge:68 Y S ex:Female Date:03/30/2024 Address: [address] [facility] Pcp:Ramesh Smith Subjective: * Chief Complaints: * 1 . [facility] Conversion Encounter. * Medical History: * Medications: [...] Electronic signature of Prov kyar [facility] on 03/25/2025 at 12:43 PM CDT Sign off status: Pending * Provider: Edel Taylor Date: 0 03/30/2024 Generated for Mare kathleen/Tao/Rach on: 03/25/2025 12:43 PM CDT
--- OUTSIDE RECORDS SUMMARY | 2025-03-25 12:44 | XMS_ITS | Clinical Summary ---
Author Organization [facility] Address [address] [place] [address] Phone Care Team Providers Care Internet Marketing Consultant Name Role Phone Dariel Horvath DO Primary Care Provider [phone] Allergies Active Allergy Reactions Criticality Noted Date [...] 10:50 AM CDT Height 166.4 cm (5' 5.5) 06/09/2022 10 :50 AM CDT Body Mass Index 32.25 06/09/2022 10:50 AM CDT Plan of Treatment Health Maintenance Due Date Last Done Comments Pneumococcal PPSV23/PCV13 65 + Years / Low and Medium Risk (2 of 3 - PPSV23) 09/24/2020 09/24/2019 Influenza Vaccine (Season Ended) 2025 Insurance MEDICARE T Care Teams Internet Marketing Consultant Relationship Specialty Start Date End Date Dariel Horvath DO [address] [facility] [address] [place] [address] PCP - General Internal Medicine 05/27/21
--- OUTSIDE RECORDS SUMMARY | 2025-03-25 12:44 | XMS_ITS | Patient Health Record ---
Author Organization [facility] [employer] ([address]) Address [address] [place] [address] Care Team Providers Care Entry Level Administrative Assistant Name Role Phone Ramesh Smith Primary Care Provider UnavailDr. 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 confirmed Problem Chronic migraine without aura, non-intractable (520849564414102) Chronic migraine without aura, not intractable, without status migrainosus (G43.709) Active confirmed Problem Alcoholic polyneuropathy (8919725) 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 confirmed Problem Orthostatic hypotension (64798699) Orthostatic hypotension (I95.1) Active confirmed Problem Abnormal gait (02068228) Other abnormalities of gait and mobility (R26.89) Active confirmed Problem Malaise (931774972) Other malaise (R53.81) Active confirmed Problem Neurogenic claudication (950206982) Spinal stenosis, lumbar region with neurogenic claudication (M48.062) Active confirmed Encounters Encounter Location Date Provider Diagnosis [facility] [place] [address] 03/30/2024 Provider [facility] Plan Of Treatment No Information Insurance Providers Payer Name Payer Address Payer Phone Subscriber Number Group Number Insured Name Patient Relationship to Insured Coverage Start Date Coverage End Date [employer] (Medicare) Attention Claims [address] [place] [address] [id number] Lou Islas Self - patient is the insured Right Relevance [address] [place] [phone] [id number] Lou Islas Self - patient is the insured Medical (General) History Medical History History ICD Code Obesity DM2 HLD HTN Osteoarthritis Osteoporosis Lumbar DDD GERD Chronic hyponatremia Mild CKD Liver cirrhosis Surgical History Surgery Date(Month/Year) R hip replacement L hip replacement Lumbar discectomy B cataract
--- OUTSIDE RECORDS SUMMARY | 2025-03-25 12:44 | XMS_ITS | Clinical Summary ---
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 Activ e thiamine (VITAMIN B1) 100 [...] 1 tablet (1 g total) by mouth machine stuffer before breakfast 06/04/20 21 Active sodium zirconium [...] 11/29/2024 Assessment & Plan (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): Bilateral lower extremity chronic venous insufficiency with [...] Encounters Date Type Department Care Team Description 02/27/2025 Orders Only [facility] [phone] Unknown, Notinfile 02/25/2025 Orders Only [facility] [phone] Unknown, Notinfile 02/24/2025 Orders Only [facility] [phone] Unknown, Notinfile 02/22/2025 Orders Only [facility] [phone] Unknown, Notinfile 02/21/2025 Orders Only [facility] [phone] Unknown, Notinfile 02/19/2025 Orders Only [facility] [phone] Unknown, Notinfile 01/31/2025 Hospital Encounter [facility] ADMIT [address] [place] [address] Kelvin Win MD 01/14/2025 Telephone [facility] Cardiology [address] [place] [address] Carlitos Edmonds MD 12/26/2024 9:30 AM CDT Office Visit [facility] Orthopedics and Sports Medicine [address] [place] [phone] Samara Soto PA Closed fracture of medial portion of left tibial plateau with routine healing, subsequent encounter (Primary Dx) 12/26/2024 9:15 AM CDT - 12/26/2024 11:59 PM CDT Hospital Encounter [facility] MOB 1 DIAG IMG [address] [place] [address] Closed fracture of medial portion of left tibial plateau, initial encounter Discharge Disposition: Discharge to home or self care 12/25/2024 9:30 AM CDT Office Visit [facility] Cardiology [address] [place] [address] Bridget Nicholson NP Congestive heart failure, unspecified HF chronicity, unspecified heart failure type (HCC) (Primary Dx); Lymphedema of both lower extremities; Closed fracture of medial portion of left tibial plateau, initial encounter; Chronic venous insufficiency of lower extremity from Last 3 Months Immunizations Immunization Administration [...] Tobacco: Never Tobacco Cessation:Counseling Given: Not Answered [facility] Utilities Answer Date Recorded In the past 12 months has e [place] [employer], gas, oil, or water [employer] threatened to shut off services in your [...] any clubs o r organizations such as episcopalian groups, unions, fraternal or athletic groups, or [...] any time in the past 12 m [facility], were you homeless or living in a assisted (including now)? 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 Respiratory Rate 18 11/20/2024 8:44 AM PAINTER TUMBLING BARREL Oxygen Saturation 99% 12/25/2024 9:24 AM CDT Inhaled Oxygen Concentration - - Weight 65.3 kg (144 lb) 12/25/2024 9:24 AM CDT Height 165.1 cm (5' 5) 12/25/2024 9:24 AM CDT Body Mass Index [...] 05/31/2021 Fall Risk Assessment 11/19/2025 11/19/2024 eGFR 02/27/2026 02/27/2025, 02/13, 02/24/2025, Additional history exists Influenza Vaccine Completed 07/16/2024, , 07/22/2022, Additional history exists Procedures Procedure Name Priority Date/Time Associated Diagnosis Comments EGFR Routine 02/27/2025 5:32 AM CDT COMPREHENSIVE METABOLIC PANEL Routine 02/27/2025 5:32 AM CDT DIFFERENTIAL AUTO Routine 02/27/2025 5:3 2 AM CDT CBC WITH AUTO DIFFERENTIAL Routine 02/27/2025 5:32 AM CDT EGFR Routine 02/25/2025 6:12 AM CDT BASIC METABOLIC PANEL Routine 02/25/2025 6:12 AM CDT EGFR Routine 02/24/2025 6:10 AM CDT COMPREHENSIVE METABOLIC PANEL Routine 02/24/2025 6:10 AM CDT DIFFERENTIAL AUTO Routine 02/24/2025 6:1 0 AM CDT CBC WITH AUTO DIFFERENTIAL Routine 02/24/2025 6:10 AM CDT EGFR Routine 02/22/2025 5:20 AM CDT BASIC METABOLIC PANEL Routine 02/22/2025 5:20 AM CDT EGFR Routine 02/21/2025 6:04 AM CDT COMPREHENSIVE METABOLIC PANEL Routine 02/21/2025 6:04 AM CDT DIFFERENTIAL AUTO Routine 02/21/2025 6:0 4 AM CDT CBC WITH AUTO DIFFERENTIAL Routine 02/21/2025 6:04 AM CDT EGFR Routine 02/19/2025 5:40 AM CDT COMPREHENSIVE METABOLIC PANEL Routine 02/19/2025 5:40 AM CDT DIFFERENTIAL AUTO Routine 02/19/2025 5:4 0 AM CDT CBC WITH AUTO DIFFERENTIAL Routine 02/19/2025 5:40 AM CDT XR TIBIA FIBULA LEFT 2 VIEWS Schedule Routine, Read Routine (OP Routine) 12/26/2024 9:26 AM CDT Closed fracture of medial portion of left tibial plateau, initial encounter HEMOGLOBIN A1C Routine 11/16/2024 9:56 AM PAINTER TUMBLING BARREL POCT LIPID PANEL Routine 11/15/2023 2:47 PM PAINTER TUMBLING BARREL Lipid screening from Last 3 Months or Most Recently Relevant to Health Maintenance Results * (ABNORMAL) eGFR (02/27/2025 5:32 AM CDT) [facility] eGFR 37(L) >=60 mL/min/1. 73 m2 [facility] Comment: Interpretive Data Reference Interval Normal >/= [...] was last reviewed 2021. Testing performed by: [address] [address] Blood 02/27/2025 5:32 AM CDT 02/27/2025 8:24 AM CDT us Notinfile Unknown LAB BLOOD ORDERABLES Final Res ult [facility] [address] [facility] Department [place] [address] * (ABNORMAL) Differential, auto (02/27/2025 5:32 AM CDT) Neutrophil abs 3.62 1.50 - 6.50 K/cumm [facility] Comment:Testing performed by : [address] [address] Imm gran abs 0.01 0.00 - 0.10 K/cumm [facility] Comment:Testing performed by : [address] [address] Lymphocyte abs 0.52(L) 0.80 - 3.30 K/cumm [facility] Comment:Testing performed by : [address] [address] Monocyte abs 0.60 0.20 - 0.80 K/cumm [facility] Comment:Testing performed by : [address] [address] Eosinophil abs 0.40 0.00 - 0.50 K/cumm [facility] Comment:Testing performed by : [address] [address] Basophil abs 0.04 0.00 - 0.10 K/cumm [facility] Comment:Testing performed by : [address] [address] Neutrophil pct 69.7 % [facility] Comment: Interpretive Data Percent cell count reference ranges are not reported, since discordance with absolute values may lead to misinterpretation of CBC data. Current Interpretive Data was last revised on 2018. Testing performed by: [address] [address] Imm gran pct 0.2 % [facility] Comment: Interpretive Data Percent cell count reference ranges are not reported, since discordance with absolute values may lead to misinterpretation of CBC data. Current Interpretive Data was last revised on 2018. Testing performed by: [address] [address] Lymphocyte pct 10.0 % [facility] Comment: Interpretive Data Percent cell count reference ranges are not reported, since discordance with absolute values may lead to misinterpretation of CBC data. Current Interpretive Data was last revised on 2018. Testing performed by: [address] [address] Monocyte pct 11.6 % [facility] Comment: Interpretive Data Percent cell count reference ranges are not reported, since discordance with absolute values may lead to misinterpretation of CBC data. Current Interpretive Data was last revised on 2018. Testing performed by: [address] [address] Eosinophil pct 7.7 % [facility] Comment: Interpretive Data Percent cell count reference ranges are not reported, since discordance with absolute values may lead to misinterpretation of CBC data. Current Interpretive Data was last revised on 2018. Testing performed by: [address] [address] Basophil pct 0.8 % [facility] Comment: Interpretive Data Percent cell count reference ranges are not reported, since discordance with absolute values may lead to misinterpretation of CBC data. Current Interpretive Data was last revised on 2018. Testing performed by: [address] [address] Blood 02/27/2025 5:32 AM CDT 02/27/2025 8:24 AM CDT us Notinfile Unknown LAB BLOOD ORDERABLES Final Res ult [facility] [address] [facility] Department of Laboratories [place], [place] [id number] * (ABNORMAL) CBC with auto differential (02/27/2025 5:32 AM CDT) WBC 5.19 3.80 - 9.90 K/cumm [facility] Comment:Testing performed by : [address] [address] Hgb 7.6(L) 11.9 - 15.5 g/dL [facility] Comment:Testing performed by : [address] [address] Hct 23.8(L) 35.6 - 45.5 % [facility] Comment:Testing performed by : [address] [address] Plt 164 150 - 400 K/cumm [facility] Comment:Testing performed by : [address] [address] MPV 12.0 9.1 - 12.3 fL [facility] Comment:Testing performed by : [address] [address] RBC 2.40(L) 3.90 - 5.20 M/cumm [facility] Comment:Testing performed by : [address] [address] MCV 99.2(H) 81.3 - 96.4 fL [facility] Comment:Testing performed by : [address] [address] MCH 31.7 27.1 - 33.3 pg [facility] Comment:Testing performed by : [address] [address] MCHC 31.9(L) 32.3 - 35.7 g/dL [facility] Comment:Testing performed by : [address] [address] RDW CV 16.6(H) 11.1 - 14.9 % [facility] Comment:Testing performed by : [address] [address] RDW SD 60.8(H) 35.7 - 48.1 fL [facility] Comment:Testing performed by : [address] [address] NRBC abs 0.00 0.00 - 0.01 K/cumm [facility] Comment:Testing performed by : [address] [address] Blood 02/27/2025 5:32 AM CDT 02/27/2025 8:24 AM CDT us Notinfile Unknown LAB BLOOD ORDERABLES Final Res ult [facility] Department of Laboratories [place], [place] [id number] * (ABNORMAL) Comprehensive metabolic panel (02/27/2025 5:32 AM CDT) Sodium 136 135 - 145 mmol/L [facility] Comment:Testing performed by : [address] [address] Potassium, pl 4.2 3.3 - 4.9 mmol/L [facility] Comment:Testing performed by : [address] [address] Chloride 96(L) 97 - 110 mmol/L [facility] Comment:Testing performed by : [address] [address] CO2 27 22 - 32 mmol/L [facility] Comment:Testing performed by : [address] [address] Anion gap 13 2 - 15 mmol/L [facility] Comment:Testing performed by : [address] [address] BUN 28(H) 6 - 25 mg/dL [facility] Comment:Testing performed by : [address] [address] Creatinine 1.50(H) 0.60 - 1.10 mg/dL [facility] Comment:Testing performed by : [address] [address] Glucose 103 70 - 199 mg/dL [facility] Comment: Interpretive Data Fasting glucose >/= 126 [...] was last revised 2022. Testing performed by: [address] [address] Calcium 9.8 8.5 - 10.3 mg/dL [facility] Comment:Testing performed by : [address] [address] Bilirubin, total 1.4(H) 0.1 - 1.2 mg/dL [facility] Comment:Testing performed by : [address] [address] Protein, pl 6.6 6.5 - 8.5 g/dL [facility] Comment:Testing performed by : [address] [address] Albumin 4.0 3.5 - 5.0 g/dL [facility] Comment:Testing performed by : [address] [address] Alk phos 404(H) 40 - 130 Units/L [facility] Comment:Testing performed by : [address] [address] ALT 21 7 - 45 Units/L [facility] Comment:Testing performed by : [facility], [address] [place] [address]., [address] AST 40 10 - 45 Units/L [facility] Comment:Testing performed by : [facility], [address] [place] [address]., [address] Blood 02/27/2025 5:32 AM CDT 02/27/2025 8:24 AM CDT us Notinfile Unknown LAB BLOOD ORDERABLES Final Res ult [facility] [address] [facility] Department [place] [address] * (ABNORMAL) eGFR (02/25/2025 6:12 AM CDT) eGFR 38(L) >=60 mL/min/1. 73 m2 [facility] Comment: Interpretive Data Reference Interval Normal >/= [...] was last reviewed 2021. Testing performed by: [address] [address] Blood 02/25/2025 6:12 AM CDT 02/25/2025 8:22 AM CDT us Notinfile Unknown LAB BLOOD ORDERABLES Final Res ult [facility] [address] [facility] Department [place] [address] * (ABNORMAL) Basic metabolic panel (02/25/2025 6:12 AM CDT) Sodium 136 135 - 145 mmol/L [facility] Comment:Testing performed by : [address] [address] Potassium, pl 4.0 3.3 - 4.9 mmol/L [facility] Comment:Testing performed by : [address] [address] Chloride 97 97 - 110 mmol/L [facility] Comment:Testing performed by : [address] [address] CO2 27 22 - 32 mmol/L [facility] Comment:Testing performed by : [address] [address] Anion gap 12 2 - 15 mmol/L [facility] Comment:Testing performed by : [address] [address] BUN 26(H) 6 - 25 mg/dL [facility] Comment:Testing performed by : [address] [address] Creatinine 1.46(H) 0.60 - 1.10 mg/dL [facility] Comment:Testing performed by : [address] [address] Glucose 97 70 - 199 mg/dL [facility] Comment: Interpretive [...] was last revised 2022. Testing performed by: [address] [address] Calcium 9.9 8.5 - 10.3 mg/dL [facility] Comment:Testing performed by : [address] [address] Blood 02/25/2025 6:12 AM CDT 02/25/2025 8:22 AM CDT us Notinfile Unknown LAB BLOOD ORDERABLES Final Res ult Performing Organization Address [facility] Co de Phone Number [place] [phone] [facility] [place] [address] * (ABNORMAL) eGFR (02/24/2025 6:10 AM CDT) eGFR 33(L) >=60 mL/min/1. 73 m2 [facility] Comment: Interpretive Data Reference Interval Normal >/= [...] was last reviewed 2021. Testing performed by: [facility], [address] [place] [address]., [address] Blood 02/24/2025 6:10 AM CDT 02/24/2025 8:16 AM CDT us Notinfile Unknown LAB BLOOD ORDERABLES Final Res ult Performing Organization Address City/[facility]/ZIP Co de Phone Number [place] [phone] [facility] [place] [address] * (ABNORMAL) Differential, auto (02/24/2025 6:10 AM CDT) Neutrophil abs 2.57 1.50 - 6.50 K/cumm [facility] Comment:Testing performed by : [address] [address] Imm gran abs 0.01 0.00 - 0.10 K/cumm [facility] Comment:Testing performed by : [address] [address] Lymphocyte abs 0.73(L) 0.80 - 3.30 K/cumm [facility] Comment:Testing performed by : [address] [address] Monocyte abs 0.50 0.20 - 0.80 K/cumm [facility] Comment:Testing performed by : [address] [address] Eosinophil abs 0.38 0.00 - 0.50 K/cumm [facility] Comment:Testing performed by : [address] [address] Basophil abs 0.02 0.00 - 0.10 K/cumm [facility] Comment:Testing performed by : [address] [address] Neutrophil pct 61.1 % [facility] Comment: Interpretive Data Percent cell count reference ranges are not reported, since discordance with absolute values may lead to misinterpretation of CBC data. Current Interpretive Data was last revised on 2018. Testing performed by: [address] [address] Imm gran pct 0.2 % [facility] Comment: Interpretive Data Percent cell count reference ranges are not reported, since discordance with absolute values may lead to misinterpretation of CBC data. Current Interpretive Data was last revised on 2018. Testing performed by: [address] [address] Lymphocyte pct 17.3 % [facility] Comment: Interpretive Data Percent cell count reference ranges are not reported, since discordance with absolute values may lead to misinterpretation of CBC data. Current Interpretive Data was last revised on 2018. Testing performed by: [address] [address] Monocyte pct 11.9 % [facility] Comment: Interpretive Data Percent cell count reference ranges are not reported, since discordance with absolute values may lead to misinterpretation of CBC data. Current Interpretive Data was last revised on 2018. Testing performed by: [address] [address] Eosinophil pct 9.0 % [facility] Comment: Interpretive Data Percent cell count reference ranges are not reported, since discordance with absolute values may lead to misinterpretation of CBC data. Current Interpretive Data was last revised on 2018. Testing performed by: [address] [address] Basophil pct 0.5 % [facility] Comment: Interpretive Data Percent cell count reference ranges are not reported, since discordance with absolute values may lead to misinterpretation of CBC data. Current Interpretive Data was last revised on 2018. Testing performed by: [address] [address] Blood 02/24/2025 6:10 AM CDT 02/24/2025 8:16 AM CDT us Notinfile Unknown LAB BLOOD ORDERABLES Final Res ult [facility] [address] [facility] Department [place] [address] * (ABNORMAL) CBC with auto differential (02/24/2025 6:10 AM CDT) WBC 4.21 3.80 - 9.90 K/cumm [facility] Comment:Testing performed by : [address] [address] Hgb 7.7(L) 11.9 - 15.5 g/dL [facility] Comment:Testing performed by : [address] [address] Hct 24.8(L) 35.6 - 45.5 % [facility] Comment:Testing performed by : [address] [address] Plt 211 150 - 400 K/cumm [facility] Comment:Testing performed by : [address] [address] MPV 11.8 9.1 - 12.3 fL [facility] Comment:Testing performed by : [address] [address] RBC 2.47(L) 3.90 - 5.20 M/cumm [facility] Comment:Testing performed by : [address] [address] MCV 100.4(H) 81.3 - 96.4 fL [facility] Comment:Testing performed by : [address] [address] MCH 31.2 27.1 - 33.3 pg [facility] Comment:Testing performed by : [address], [address] MCHC 31.0(L) 32.3 - 35.7 g/dL [facility] Comment:Testing performed by : [address], [address] RDW CV 16.9(H) 11.1 - 14.9 % [facility] Comment:Testing performed by : [address] [address] RDW SD 61.9(H) 35.7 - 48.1 fL [facility] Comment:Testing performed by : [address] [address] NRBC abs 0.00 0.00 - 0.01 K/cumm [facility] Comment:Testing performed by : [address] [address] Blood 02/24/2025 6:10 AM CDT 02/24/2025 8:16 AM CDT us Notinfile Unknown LAB BLOOD ORDERABLES Final Res ult [facility] [address] [facility] Department [place] [address] * (ABNORMAL) Comprehensive metabolic panel (02/24/2025 6:10 AM CDT) Sodium 136 135 - 145 mmol/L [facility] Comment:Testing performed by : [address] [address] Potassium, pl 4.0 3.3 - 4.9 mmol/L [facility] Comment:Testing performed by : [address] [address] Chloride 97 97 - 110 mmol/L [facility] Comment:Testing performed by : [address], [place]., [address] CO2 28 22 - 32 mmol/L [facility] Comment:Testing performed by : [address] [address] Anion gap 11 2 - 15 mmol/L [facility] Comment:Testing performed by : [address] [address] BUN 26(H) 6 - 25 mg/dL [facility] Comment:Testing performed by : [address], [place]., [address] Creatinine 1.64(H) 0.60 - 1.10 mg/dL [facility] Comment:Testing performed by : [address] [address] Glucose 97 70 - 199 mg/dL [facility] Comment: Interpretive [...] was last revised 2022. Testing performed by: [address] [address] Calcium 9.7 8.5 - 10.3 mg/dL [facility] Comment:Testing performed by : [address] [address] Bilirubin, total 1.2 0.1 - 1.2 mg/dL [facility] Comment:Testing performed by : [address] [address] Protein, pl 6.7 6.5 - 8.5 g/dL [facility] Comment:Testing performed by : [address] [address] Albumin 4.2 3.5 - 5.0 g/dL [facility] Comment:Testing performed by : [address] [address] Alk phos 393(H) 40 - 130 Units/L [facility] Comment:Testing performed by : [address] [address] ALT 19 7 - 45 Units/L [facility] Comment:Testing performed by : [address] [address] AST 42 10 - 45 Units/L [facility] Comment:Testing performed by : [address] [address] Blood 02/24/2025 6:10 AM CDT 02/24/2025 8:16 AM CDT us Notinfile Unknown LAB BLOOD ORDERABLES Final Res ult [facility] [address] [facility] Department [place] [address] * (ABNORMAL) eGFR (02/22/2025 5:20 AM CDT) eGFR 40(L) >=60 mL/min/1. 73 m2 [facility] Comment: Interpretive Data Reference Interval Normal >/= [...] was last reviewed 2021. Testing performed by: [address] [address] Blood 02/22/2025 5:20 AM CDT 02/22/2025 8:27 AM CDT us Notinfile Unknown LAB BLOOD ORDERABLES Final Res ult [facility] Department [place] [address] * (ABNORMAL) Basic metabolic panel (02/22/2025 5:20 AM CDT) Sodium 137 135 - 145 mmol/L [facility] Comment:Testing performed by : [address] [address] Potassium, pl 4.0 3.3 - 4.9 mmol/L [facility] Comment:Testing performed by : [address] [address] Chloride 98 97 - 110 mmol/L [facility] Comment:Testing performed by : [address] [address] CO2 29 22 - 32 mmol/L [facility] Comment:Testing performed by : [address] [address] Anion gap 10 2 - 15 mmol/L [facility] Comment:Testing performed by : [address] [address] BUN 26(H) 6 - 25 mg/dL [facility] Comment:Testing performed by : [address] [address] Creatinine 1.42(H) 0.60 - 1.10 mg/dL [facility] Comment:Testing performed by : [address] [address] Glucose 108 70 - 199 mg/dL [facility] Comment: Interpretive Data Fasting glucose >/= 126 [...] was last revised 2022. Testing performed by: [address] [address] Calcium 9.8 8.5 - 10.3 mg/dL [facility] Comment:Testing performed by : [address] [address] Blood 02/22/2025 5:20 AM CDT 02/22/2025 8:27 AM CDT us Notinfile Unknown LAB BLOOD ORDERABLES Final Res ult [facility] [address] [facility] Department of Laboratories [place], [place] [id number] * (ABNORMAL) eGFR (02/21/2025 6:04 AM CDT) eGFR 39(L) >=60 mL/min/1. 73 m2 [facility] Comment: Interpretive Data Reference Interval Normal >/= [...] was last reviewed 2021. Testing performed by: [address] [address] Blood 02/21/2025 6:04 AM CDT 02/21/2025 8:58 AM CDT us Notinfile Unknown LAB BLOOD ORDERABLES Final Res ult [facility] [address] Department [place] [address] * (ABNORMAL) Differential, auto (02/21/2025 6:04 AM CDT) Neutrophil abs 2.28 1.50 - 6.50 K/cumm [facility] Comment:Testing performed by : [address] [address] Imm gran abs 0.02 0.00 - 0.10 K/cumm [facility] Comment:Testing performed by : [address] [address] Lymphocyte abs 0.78(L) 0.80 - 3.30 K/cumm [facility] Comment:Testing performed by : [address] [address] Monocyte abs 0.45 0.20 - 0.80 K/cumm [facility] Comment:Testing performed by : [address] [address] Eosinophil abs 0.51(H) 0.00 - 0.50 K/cumm [facility] Comment:Testing performed by : [address] [address] Basophil abs 0.04 0.00 - 0.10 K/cumm [facility] Comment:Testing performed by : [address] [address] Neutrophil pct 55.9 % [facility] Comment: Interpretive Data Percent cell count reference ranges are not reported, since discordance with absolute values may lead to misinterpretation of CBC data. Current Interpretive Data was last revised on 2018. Testing performed by: [address] [address] Imm gran pct 0.5 % [facility] Comment: Interpretive Data Percent cell count reference ranges are not reported, since discordance with absolute values may lead to misinterpretation of CBC data. Current Interpretive Data was last revised on 2018. Testing performed by: [address] [address] Lymphocyte pct 19.1 % [facility] Comment: Interpretive Data Percent cell count reference ranges are not reported, since discordance with absolute values may lead to misinterpretation of CBC data. Current Interpretive Data was last revised on 2018. Testing performed by: [address] [address] Monocyte pct 11.0 % [facility] Comment: Interpretive Data Percent cell count reference ranges are not reported, since discordance with absolute values may lead to misinterpretation of CBC data. Current Interpretive Data was last revised on 2018. Testing performed by: [address] [address] Eosinophil pct 12.5 % [facility] Comment: Interpretive Data Percent cell count reference ranges are not reported, since discordance with absolute values may lead to misinterpretation of CBC data. Current Interpretive Data was last revised on 2018. Testing performed by: [address] [address] Basophil pct 1.0 % [facility] [place] Comment: Interpretive Data Percent cell count reference ranges are not reported, since discordance with absolute values may lead to misinterpretation of CBC data. Current Interpretive Data was last revised on 2018. Testing performed by: [address] [address] Blood 02/21/2025 6:04 AM CDT 02/21/2025 8:58 AM CDT us Notinfile Unknown LAB BLOOD ORDERABLES Final Res ult [facility] [address] [facility] Department [place] [address] * (ABNORMAL) CBC with auto differential (02/21/2025 6:04 AM CDT) WBC 4.08 3.80 - 9.90 K/cumm [facility] Comment:Testing performed by : [address] [address] Hgb 8.1(L) 11.9 - 15.5 g/dL [facility] Comment:Testing performed by : [address], [address] Hct 25.5(L) 35.6 - 45.5 % [facility] Comment:Testing performed by : [address] [address] Plt 226 150 - 400 K/cumm [facility] Comment:Testing performed by : [address], [address] MPV 12.2 9.1 - 12.3 fL [facility] Comment:Testing performed by : [address] [address] RBC 2.50(L) 3.90 - 5.20 M/cumm [facility] Comment:Testing performed by : [address] [address] MCV 102.0(H) 81.3 - 96.4 fL [facility] Comment:Testing performed by : [address] [address] MCH 32.4 27.1 - 33.3 pg [facility] Comment:Testing performed by : [address] [address] MCHC 31.8(L) 32.3 - 35.7 g/dL [facility] Comment:Testing performed by : [address], [address] RDW CV 17.2(H) 11.1 - 14.9 % [facility] Comment:Testing performed by : [address] [address] RDW SD 63.7(H) 35.7 - 48.1 fL [facility] Comment:Testing performed by : [address] [address] NRBC abs 0.00 0.00 - 0.01 K/cumm [facility] [place] Comment:Testing performed by : [address] [address] Blood 02/21/2025 6:04 AM CDT 02/21/2025 8:58 AM CDT us Notinfile Unknown LAB BLOOD ORDERABLES Final Res ult DAY[facility] CARP[facility] [address] [facility] Department [place] [address] * (ABNORMAL) Comprehensive metabolic panel (02/21/2025 6:04 AM CDT) Sodium 139 135 - 145 mmol/L [facility] Comment:Testing performed by : [address] [address] Potassium, pl 3.8 3.3 - 4.9 mmol/L [facility] [place] Comment:Testing performed by : [address] [address] Chloride 96(L) 97 - 110 mmol/L [facility] Comment:Testing performed by : [address] [address] CO2 28 22 - 32 mmol/L [facility] Comment:Testing performed by : [address] [address] Anion gap 15 2 - 15 mmol/L [facility] Comment:Testing performed by : [address] [address] BUN 27(H) 6 - 25 mg/dL [facility] [place] Comment:Testing performed by : [address] [address] Creatinine 1.43(H) 0.60 - 1.10 mg/dL [facility] [place] Comment:Testing performed by : [address] [address] Glucose 88 70 - 199 mg/dL [facility] Comment: Interpretive [...] was last revised 2022. Testing performed by: [address] [address] Calcium 10.0 8.5 - 10.3 mg/dL [facility] Comment:Testing performed by : [address] [address] Bilirubin, total 1.3(H) 0.1 - 1.2 mg/dL [facility] Comment:Testing performed by : [address] [address] Protein, pl 7.0 6.5 - 8.5 g/dL [facility] Comment:Testing performed by : [address] [address] Albumin 4.3 3.5 - 5.0 g/dL [facility] Comment:Testing performed by : [address] [address] Alk phos 322(H) 40 - 130 Units/L [facility] Comment:Testing performed by : [address] [address] ALT 13 7 - 45 Units/L [facility] Comment:Testing performed by : [address] [address] AST 31 10 - 45 Units/L [facility] Comment:Testing performed by : [address] [address] Blood 02/21/2025 6:04 AM CDT 02/21/2025 8:58 AM CDT us Notinfile Unknown LAB BLOOD ORDERABLES Final Res ult Performing Organization Address [facility] Co de Phone Number DAY[facility] [address] [facility] [place] [address] * (ABNORMAL) eGFR (02/19/2025 5:40 AM CDT) eGFR 43(L) >=60 mL/min/1. 73 m2 [facility] Comment: Interpretive Data Reference Interval Normal >/= [...] was last reviewed 2021. Testing performed by: [address] [address] Blood 02/19/2025 5:40 AM CDT 02/19/2025 8:19 AM CDT us Notinfile Unknown LAB BLOOD ORDERABLES Final Res ult Performing Organization Address City/[facility]/ZIP Co de Phone Number DAY[facility] [address] [facility] [place] [address] * (ABNORMAL) Differential, auto (02/19/2025 5:40 AM CDT) Neutrophil abs 2.76 1.50 - 6.50 K/cumm [facility] Comment:Testing performed by : [address] [address] Imm gran abs 0.02 0.00 - 0.10 K/cumm [facility] Comment:Testing performed by : [address] [address] Lymphocyte abs 0.73(L) 0.80 - 3.30 K/cumm [facility] Comment:Testing performed by : [address] [address] Monocyte abs 0.51 0.20 - 0.80 K/cumm [facility] Comment:Testing performed by : [address], [place]., [address] Eosinophil abs 0.67(H) 0.00 - 0.50 K/cumm [facility] Comment:Testing performed by : [address] [address] Basophil abs 0.04 0.00 - 0.10 K/cumm [facility] Comment:Testing performed by : [address] [address] Neutrophil pct 58.4 % [facility] Comment: Interpretive Data Percent cell count reference ranges are not reported, since discordance with absolute values may lead to misinterpretation of CBC data. Current Interpretive Data was last revised on 2018. Testing performed by: [address] [address] Imm gran pct 0.4 % [facility] Comment: Interpretive Data Percent cell count reference ranges are not reported, since discordance with absolute values may lead to misinterpretation of CBC data. Current Interpretive Data was last revised on 2018. Testing performed by: [address] [address] Lymphocyte pct 15.4 % [facility] [place] Comment: Interpretive Data Percent cell count reference ranges are not reported, since discordance with absolute values may lead to misinterpretation of CBC data. Current Interpretive Data was last revised on 2018. Testing performed by: [address] [address] Monocyte pct 10.8 % [place] Comment: Interpretive Data Percent cell count reference ranges are not reported, since discordance with absolute values may lead to misinterpretation of CBC data. Current Interpretive Data was last revised on 2018. Testing performed by: [address] [address] Eosinophil pct 14.2 % [facility] Comment: Interpretive Data Percent cell count reference ranges are not reported, since discordance with absolute values may lead to misinterpretation of CBC data. Current Interpretive Data was last revised on 2018. Testing performed by: [address] [address] Basophil pct 0.8 % [facility] Comment: Interpretive Data Percent cell count reference ranges are not reported, since discordance with absolute values may lead to misinterpretation of CBC data. Current Interpretive Data was last revised on 2018. Testing performed by: [address] [address] Blood 02/19/2025 5:40 AM CDT 02/19/2025 8:19 AM CDT us Notinfile Unknown LAB BLOOD ORDERABLES Final Res ult [facility] Department [place] [address] * (ABNORMAL) CBC with auto differential (02/19/2025 5:40 AM CDT) WBC 4.73 3.80 - 9.90 K/cumm [facility] Comment:Testing performed by : [address] [address] Hgb 7.5(L) 11.9 - 15.5 g/dL [facility] Comment:Testing performed by : [address] [address] Hct 24.5(L) 35.6 - 45.5 % [facility] Comment:Testing performed by : [address] [address] Plt 215 150 - 400 K/cumm [facility] Comment:Testing performed by : [address] [address] MPV 12.2 9.1 - 12.3 fL [facility] [place] Comment:Testing performed by : [address] [address] RBC 2.42(L) 3.90 - 5.20 M/cumm [facility] Comment:Testing performed by : [address] [address] MCV 101.2(H) 81.3 - 96.4 fL [facility] Comment:Testing performed by : [address] [address] MCH 31.0 27.1 - 33.3 pg [facility] Comment:Testing performed by : [address] [address] MCHC 30.6(L) 32.3 - 35.7 g/dL [facility] Comment:Testing performed by : [address] [address] RDW CV 17.1(H) 11.1 - 14.9 % [facility] Comment:Testing performed by : [address] [address] RDW SD 62.5(H) 35.7 - 48.1 fL [facility] Comment:Testing performed by : [address] [address] NRBC abs 0.00 0.00 - 0.01 K/cumm [facility] Comment:Testing performed by : [address] [address] Blood 02/19/2025 5:40 AM CDT 02/19/2025 8:19 AM CDT us Notinfile Unknown LAB BLOOD ORDERABLES Final Res ult DAY[facility] [address] [facility] Department [place] [address] * (ABNORMAL) Comprehensive metabolic panel (02/19/2025 5:40 AM CDT) Sodium 136 135 - 145 mmol/L [facility] [place] Comment:Testing performed by : [address] [address] Potassium, pl 3.8 3.3 - 4.9 mmol/L [facility] Comment:Testing performed by : [address], [place]., [address] Chloride 97 97 - 110 mmol/L [facility] Comment:Testing performed by : [address], [place]., [address] CO2 27 22 - 32 mmol/L [facility] Comment:Testing performed by : [address], [place]., [address] Anion gap 12 2 - 15 mmol/L [facility] Comment:Testing performed by : [address], [place]., [address] BUN 26(H) 6 - 25 mg/dL [facility] Comment:Testing performed by : [address], [place]., [address] Creatinine 1.33(H) 0.60 - 1.10 mg/dL [facility] Comment:Testing performed by : [address] [address] Glucose 139 70 - 199 mg/dL [facility] Comment: Interpretive Data Fasting glucose >/= [...] was last revised 2022. Testing performed by: [address] [address] Calcium 9.8 8.5 - 10.3 mg/dL [facility] Comment:Testing performed by : [address] [address] Bilirubin, total 1.3(H) 0.1 - 1.2 mg/dL [facility] Comment:Testing performed by : [address], [place]., [address] Protein, pl 6.5 6.5 - 8.5 g/dL [facility] Comment:Testing performed by : [facility], [address] [place] [address]., [address] Albumin 4.1 3.5 - 5.0 g/dL [facility] Comment:Testing performed by : [address] [address] Alk phos 300(H) 40 - 130 Units/L [facility] Comment:Testing performed by : [address], [address] ALT 11 7 - 45 Units/L [facility] Comment:Testing performed by : [address] [address] AST 26 10 - 45 Units/L [facility] Comment:Testing performed by : [address] [address] Blood 02/19/2025 5:40 AM CDT 02/19/2025 8:19 AM CDT us Notinfile Unknown LAB BLOOD ORDERABLES Final Res ult [facility] [address] [facility] Department of Laboratories [place], [place] [id number] * XR Tibia Fibula Left 2 View [...] Stewart Greene M.D. RB: BECKI Report ID: [id number] Reading Location: [id number] Procedure Note Stewart Greene MD - 12/30/2024 [...] Stewart Greene M.D. RB: BECKI Report ID: [id number] Reading Location: [id number] Samara MEDEIROS IM XR PROCEDURES Final Result * Hemoglobin A1c (11/16/2024 9:56 AM PAINTER TUMBLING BARREL) Hgb A1C 5.4 4.0 - 5.6 % Comment:Testing performed by : [facility], [address] [place] [address]., [address] Estimated Average Glucose 108 mg/dL [facility] [place] Comment: The ADA recommends reporting an estimated Average Glucose (eAG) with all Hemoglobin A1c results using the equation derived from a study of 507 normal and diabetic adults. Minority populations were underrepresented and children were not included. (Diabetes Care 31:2182-0785, 2008). The eAG is not equivalent to a fasting glucose. Testing performed by: [facility], [address] [place] [address], [place]., [address] Blood 11/16/2024 9:56 AM PA[employer]UMBLING BARREL 11/16/2024 10:29 AM PA[employer]UMBLING [employer]REL Ivan Fairchild MD LAB BLOOD ORDERABLES Final Re sult [facility] [address] [facility] Department [place] [address] * POCT lipid panel (11/15/2023 2:47 PM PAINTER TUMBLING BARREL) Cholesterol, POC 146 mg/dL Comment:GLU = 90 HDL, POC 58 mg/dL Triglycerides, POC 87 mg/dL LDL Cholesterol POC 70 mg/dL Chol/HDL Ratio, POC 1.2 Non-HDL Cholesterol, POC 88 mg/dL Cholesterol Total, POC 146 mg/dL Capillary blood 11/15/2023 2 :47 PM [employer]REL Bridget Nicholson NP POINT OF CARE TEST ORDERABLE S Final Result from Last 3 Months or Most Recently Relevant to Health Maintenance Additional Health Concerns Infection Onset Date Last Indicated C. difficile Comment:FROM OSH 02/04/2025 02/04/2025 Insurance MEDICARE [employer] SENIOR SUPPLEMENT Advance Directives For more information, please contact: [phone] Documents on File Type Date Recorded Patient Passenger Flagman Expl anation ADVANCE DIRECTIVE 11/13/2024 3:42 PM Power of Decorator Consultant-Medical * Full Code (Latest Code Status on File) Date Activated Date Inactivated Comments 11/12/2024 2:31 AM 11/20/2024 10:35 PM Care Teams Senior Sharepoint Architect Relationship Specialty Start Date End Date Ghanshyam Ruiz NP [address] [place] [address] PCP - General Nurse Practitioner 09/03/24 Augustus Birch MD [address] [place] [address] Internal Medicine 04/17/19
--- OUTSIDE RECORDS SUMMARY | 2025-03-25 12:45 | XMS_ITS | Clinical Summary ---
Author Organization [facility] Address [address] [place] [address] Care Team Providers Care Convalescent Sitter Name Role Phone Ghanshyam Ruiz Primary Care Provider Source Comments [facility],non-owned Affiliates and Associated Physician Practices is amultiple site organization consisting of ambulatory clinics and hospital sitesin [place], [place], [place] and [place]. This disclosure is being madepursuant to the Care Everywhere program and may not contain all information available regarding this patient. Last updated 18.[facility] Allergies Active Allergy Reactions Criticality Noted Date Comments Codeine Headache 05/30/2021 Medications * Be aware that medications may not be up to date on this document. Alwaysverify current medications with the patient. atorvastatin (LIPITOR) 10 MG tablet Take 10 mg by mouth at bedtime Active NEEDLE, DISP, 24 G 24G X 1 MISC Use 1 Each 2 times daily 48 Each 06/04/20 21 Active ondansetron, disintegrating, (ZOFRAN ODT) 4 MG tablet Take 1 (one) tablet by mouth 3 times daily before meals Allow tablet to dissolve on the tongue 30 tablet 06/04/20 21 Active folic acid (FOLVITE) 1 MG tablet Take 1 (one) tablet by mouth once daily 30 tablet 06/04/20 21 Active ferrous sulfate EC (FERROUS SULFATE) 324 (65 Fe) MG tablet Take 1 (one) tablet by mouth once daily 30 tablet 3 06/04/20 21 Active insulin lispro (HUMALOG) 100 UNIT/ML vial Inject 2 (two) Units subcutaneously 3 times daily before meals 3 mL 1 06/04/20 Active Additional Information Patient taking differently: 3 UnitsSubcutaneous 3 TIMES DAILY BEFORE MEALS, Reason: Provider adjusted, Reported on 02/07/2025 pen needles 5/16 31G X 8 MM 31G X 8 MM USE WITH INSULIN FOUR TIMES DAILY 100 Each 06/04/20 21 Active insulin pen needle (NOVOFINE 31) 31G X 5 MM needle 1 (one) Each 3 times daily 100 Each 06/04/20 21 Active bumetanide (Bumex) 1 MG tablet Take 1 (one) tablet by mouth once daily 09/04/20 24 Active Jardiance 10 MG tablet Take 1 (one) tablet by mouth once daily 02/27/20 24 Active fluticasone propionate (Flonase) 50 MCG/ACT nasal spray [place] 1 (one) spray into the nose once daily Active omeprazole EC (PriLOSEC OTC) 20 MG tablet Take 1 (one) tablet by mouth daily before breakfast Active spironolactone (Aldactone) 25 MG tablet Take 2 (two) tablets by mouth once daily 02/19/20 25 Active docusate sodium (Colace) 100 MG capsuleIndicati ons:Closed fracture of distal end of left femur, unspecified fracture morphology, initial encounter ([facility]) Take 1 (one) capsule by mouth once daily as needed for Constipation 02/19/20 25 Active polyethylene glycol 3350 (Miralax) 17 g packet Take 17 (seventeen) g by mouth 2 times daily 02/19/20 25 Active senna (Senokot) 8.6 MG tablet Take 1 (one) tablet by mouth 2 times daily 02/19/20 25 Active midodrine (Proamatine) 2.5 MG tablet Take 1 (one) tablet by mouth 3 times daily before meals 02/19/20 25 Active Insulin Glargine, 1 Unit Dial, (Sho Jose) pen Inject 10 (ten) Units subcutaneously at bedtime 02/19/20 25 Active albuterol-iprat ropium (Duo-Neb) 0.5-2.5 (3) MG/3ML nebulizer solution Inhale 3 mL by mouth every 6 hours as needed for Shortness of Breath or Wheezing 02/19/20 25 Active Active Problems Problem Noted Date Diagnosed Date Other hyperlipidemia 02/08/2025 Assessment & Plan (02/08/2025 2:34 AM CDT): Continue home atorvastatin 10 mg daily Appears to be on aspirin for primary prevention, would stop this at discharge Sacral ulcer 02/08/2025 Assessment & Plan (02/08/2025 2:34 AM CDT): See media tab, most likely pressure injuries; wound care consulted appreciate assistance Skin ulcer of right heel 02/08/2025 Assessment & Plan (02/08/2025 2:34 AM CDT): See media tab, most likely pressure injuries; wound care consulted appreciate assistance 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 If pleural fluid studies were done, I am unable to see the results. There may be some element of hepatopulmonary syndrome given platypnea described CXR on arrival here is not show obvious pleural effusion though shows hazy opacities in the right middle lobe than the final read. No symptoms of pneumonia - serial CXR - continue bumex/spironolactone as above Bilateral lower extremity edema 02/08/2025 Assessment & Plan (02/08/2025 2:34 AM CDT): Secondary to alcohol use most likely, MASLD possible given HLD/DM2 MELD 3.0: 17 at 02/08/2025 12:15 AM MELD-Na: 16 at 02/08/2025 12:15 AM Calculated from: Serum Creatinine: 1.64 mg/dL at 02/08/2025 12:15 AM Serum Sodium: 136 mmol/L at 02/08/2025 12:15 AM Total Bilirubin: 1.1 mg/dL at 02/08/2025 12:15 AM Serum Albumin: 3.5 g/dL at 02/08/2025 12:15 AM INR(ratio): 1.4 at 02/08/2025 12:15 AM Age at listing (hypothetical): 69 years Sex: Female at 02/08/2025 12:15 AM - Reports diagnosis established years ago. Not established with hepatology - EV: no EGD available for review. Home BB coreg 12.5 BID. - HE: reports distant history. Not on home lactulose/rifaximin - Ascites: present. Home Diuresis: bumex 1 daily and spironolactone 25 daily; OSH had increased jose to 100 - Transplant: not under evaluation - Hx Spontaneous Bacterial Peritonitis: none known - Hx TIPS: none - Evidence of hepatorenal syndrome/CATHRYN currently: renal function at baseline PLAN -Continue home spironolactone start at dose of 50 daily, continue home bumex 1mg daily -Unclear indication for coreg 6.25 BID, no known history of EV, but will continue it for now -Questionably on midodrine at home can consider resumption and stopping coreg if hypotension -Low sodium diet -Will need diagnositic and therapeutic paracentesis -Trend CBC, CMP, INR -Will send basic CLD workup including viral hepatitis, autoimmune etiologies, etc -RUQ U/S Ascites 02/08/2025 Assessment & Plan (02/08/2025 2:34 AM CDT): Secondary to alcohol use most likely, MASLD possible given HLD/DM2 MELD 3.0: 17 at 02/08/2025 12:15 AM MELD-Na: 16 at 02/08/2025 12:15 AM Calculated from: Serum Creatinine: 1.64 mg/dL at 02/08/2025 12:15 AM Serum Sodium: 136 mmol/L at 02/08/2025 12:15 AM Total Bilirubin: 1.1 mg/dL at 02/08/2025 12:15 AM Serum Albumin: 3.5 g/dL at 02/08/2025 12:15 AM INR(ratio): 1.4 at 02/08/2025 12:15 AM Age at listing (hypothetical): 69 years Sex: Female at 02/08/2025 12:15 AM - Reports diagnosis established years ago. Not established with hepatology - EV: no EGD available for review. Home BB coreg 12.5 BID. - HE: reports distant history. Not on home lactulose/rifaximin - Ascites: present. Home Diuresis: bumex 1 daily and spironolactone 25 daily; OSH had increased jose to 100 - Transplant: not under evaluation - Hx Spontaneous Bacterial Peritonitis: none known - Hx TIPS: none - Evidence of hepatorenal syndrome/CATHRYN currently: renal function at baseline PLAN -Continue home spironolactone start at dose of 50 daily, continue home bumex 1mg daily -Unclear indication for coreg 6.25 BID, no known history of EV, but will continue it for now -Questionably on midodrine at home can consider resumption and stopping coreg if hypotension -Low sodium diet -Will need diagnositic and therapeutic paracentesis -Trend CBC, CMP, INR -Will send basic CLD workup including viral hepatitis, autoimmune etiologies, etc -RUQ U/S Stage 3b chronic kidney disease 02/08/2025 Assessment & Plan (02/08/2025 2:34 AM CDT): Appears to be at or near recent baseline, monitor on daily labs Elevated alkaline phosphatase level 02/08/2025 Assessment & Plan (02/08/2025 2:34 AM CDT): Alk phos slightly worse on admission compared to value in outside hospital transfer packet. There is report in notes from [facility] of a CT showing a 4 mm stone in the distal common bile duct though I can not see the read and reportedly surgery was consulted, no intervention. No right upper quadrant pain and bilirubin is normal - right upper quadrant ultrasound with Doppler to start, if shows dilation of CBD would consider MRCP - obtain GGT and trend alk phos Normocytic anemia 02/08/2025 Assessment & Plan (02/08/2025 2:34 AM CDT): May be anemia of chronic disease, though high normal MCV is unusual. No signs or symptoms of active blood loss. Thrombocytopenia most likely secondary to cirrhosis - iron panel, B12, folate - monitor CBC daily Thrombocytopenia 02/08/2025 Assessment & Plan (02/08/2025 2:34 AM CDT): May be anemia of chronic disease, though high normal MCV is unusual. No signs or symptoms of active blood loss. Thrombocytopenia most likely secondary to cirrhosis - iron panel, B12, folate - monitor CBC daily C. difficile diarrhea 02/08/2025 Assessment & Plan (02/08/2025 2:34 AM CDT): Was being treated for this at the outside hospital with fidaxomicin b.i.d. after stool toxin PCR was positive on February 02 - continue fidaxomicin b.i.d. to complete 10 day course (HFpEF) heart failure with preserved ejection fr action 02/08/2025 Assessment & Plan (02/08/2025 2:34 AM CDT): Echo 10/2024 with EF 55-60 percent, grade 1 diastolic dysfunction, no other major abnormalities. Seems likely that cirrhosis rather than HFpEF is responsible for most of the symptoms that may have previously been attributed to his diagnosis Decompensated hepatic cirrhosis 02/07/2025 Assessment & Plan (02/08/2025 2:34 AM CDT): Secondary to alcohol use most likely, MASLD possible given HLD/DM2 MELD 3.0: 17 at 02/08/2025 12:15 AM MELD-Na: 16 at 02/08/2025 12:15 AM Calculated from: Serum Creatinine: 1.64 mg/dL at 02/08/2025 12:15 AM Serum Sodium: 136 mmol/L at 02/08/2025 12:15 AM Total Bilirubin: 1.1 mg/dL at 02/08/2025 12:15 AM Serum Albumin: 3.5 g/dL at 02/08/2025 12:15 AM INR(ratio): 1.4 at 02/08/2025 12:15 AM Age at listing (hypothetical): 69 years Sex: Female at 02/08/2025 12:15 AM - Reports diagnosis established years ago. Not established with hepatology - EV: no EGD available for review. Home BB coreg 12.5 BID. - HE: reports distant history. Not on home lactulose/rifaximin - Ascites: present. Home Diuresis: bumex 1 daily and spironolactone 25 daily; OSH had increased jose to 100 - Transplant: not under evaluation - Hx Spontaneous Bacterial Peritonitis: none known - Hx TIPS: none - Evidence of hepatorenal syndrome/CATHRYN currently: renal function at baseline PLAN -Continue home spironolactone start at dose of 50 daily, continue home bumex 1mg daily -Unclear indication for coreg 6.25 BID, no known history of EV, but will continue it for now -Questionably on midodrine at home can consider resumption and stopping coreg if hypotension -Low sodium diet -Will need diagnositic and therapeutic paracentesis -Trend CBC, CMP, INR -Will send basic CLD workup including viral hepatitis, autoimmune etiologies, etc -RUQ U/S Hyponatremia 05/31/2021 Assessment & Plan (02/08/2025 2:34 AM CDT): Resolved, monitor CMP daily Type 2 diabetes mellitus wit hout complication, with long-term current use of insulin 05/31/2021 Assessment & Plan (02/08/2025 2:34 AM CDT): Home regimen is Lantus 15 units nightly and 3 units with meals. - 10 units Lantus plus low-dose sliding scale, adjust accordingly - continue home Jardiance also for HFpEF Closed fracture of left distal femur Encounters Date Type Department Care Team Description 02/20/2025 10:04 AM CDT - 02/20/2025 11:59 PM CDT Hospital Encounter [facility] - Outside Imaging Discharge Disposition: Home or Self Care 02/17/2025 Telephone [facility] - GI [address] [place] [id number] Deny Barber MD Appointment 02/08/2025 Travel 02/07/2025 10:08 PM CDT - 02/18/2025 6:49 PM CDT Hospital Encounter [facility] ACUTE [address] [place] [phone] Duarte Mitchell DO Syn, Wing-Kin, MD Befeler, Alex S, MD Gastroenterology Discharge Disposition: Rehab:Inpatient 02/07/[address] [facility] [address] [place] [address] Paula Duarte, DO Cirrhosis from Last 3 Months Social History Tobacco Use Types Packs/Day Years Used Date Smoking Tobacco: Former Smokeless Tobacco: Never Comments:16 years ago, appro x 2004 Alcohol Use Standard Drinks/Week Comments Not Currently 2 (1 standard drink = 0.6 oz pure alcohol) two drinks of vodka with diet coke daily AUDIT-C Answer Date Recorded Q1: How often do you have a drink containing alcohol? 4 or more times a week 02/17/2025 Q2: How many drinks containi ng alcohol do you have on a typical day when you are drinking? 1 or 2 Q3: How often do you have si x or more drinks on one occasion? Never 02/17/2025 Overall Financial Resource Strain (CARDIA) Answe r Date Recorded How hard is it for you to pa y for the very basics like food, housing, medical care, and heating? Not hard at all 02/08/2025 [facility] - Occupational Stress Questionnaire Answer Date Recorded Do you feel stress - tense, restless, nervous, or anxious, or unable to sleep at night because your mind is troubled all the time - these days? Not at all 02/08/2025 Hunger Vital Sign Answer Date Recorded Within the past 12 months, y ou worried that your food would run out before you got the money to buy more. Never true 02/09/20 25 Within the past 12 months, t he food you bought just didn't last and you didn't have money to get more. Never true 02/08/2025 PRAPARE - Transportation Answer Date Re corded In the past 12 months, has l ack of transportation kept you from medical appointments or from getting medications? No 01/15 In the past 12 months, has l ack of transportation kept you from meetings, work, or from getting things needed for daily living? No 02/08/2025 Housing Stability Vital Sign Answer Joao e Recorded In the last 12 months, was t here a time when you were not able to pay the mortgage or rent on time? Yes 02/08/2025 In the past 12 months, how m any times have you moved where you were living? 0 02/08/2025 At any time in the past 12 m onths, were you homeless or living in a long term (including now)? No 02/08/2025 Comments No Sex and Gender Information Value Date Recorded Sex Assigned at Not on file Legal Sex Female 9:29 PM CDT Gender Identity Not on file Sexual Orientation Not on file Last Filed Vital Signs Vital Sign Reading Time Taken Comments Blood Pressure 124/65 02/18/2025 3:27 PM CDT Pulse 87 02/18/2025 3:27 PM CDT Temperature 36.5 C (97.7 F) 02/18/2025 11:54 AM CDT Respiratory Rate 18 02/18/2025 3:27 PM CDT Oxygen Saturation 98% 02/18/2025 3:27 PM CDT Inhaled Oxygen Concentration 21% 05/31/2021 2 :20 PM CDT Weight 90 kg (198 lb 6.4 oz) 02/16/2025 5:46 AM CDT Height 165.1 cm (5' 5) 02/08/2025 11:59 AM CDT Body Mass Index 33.02 02/08/2025 11:59 AM CDT Plan of Treatment Upcoming Encounters Date Type Department Care Team (Late st Contact Info) Description 06/19/2025 10:30 AM CDT Office Visit [facility] [place] [phone] Health Maintenance Due Date Last Done Comments BONE DENSITY TESTING 1955 COLOGUARD (AGES 45-75) - COLON CA SCREENING 1954 COLON MONITORING 1954 COLONOSCOPY - COLON CA SCREENING 1954 CT COLONOGRAPHY - COLON CA SCREENING 1954 Colorectal Cancer Screening 1954 FIT - COLON CA SCREENING 1954 FLEX SIG - COLON CA SCREENING 1954 MAMMOGRAM 1954 MEDICARE AWV 12 MONTHS 1954 DTAP/TDAP/TD VACCINES (1 - Tdap) 1973 PNEUMOCOCCAL VACCINE 50+ (1 of 2 - PCV) 1973 ZOSTER VACCINE (1 of 2) 2004 HEPATITIS B VACCINE (1 of 3 - Risk 3-dose series) 2014 Respiratory Syncytial Virus (RSV) Vaccine Pt: or over 60 yrs (1 - Risk 60-74 years 1-dose series) 2014 DIABETES RETINOPATHY SCREENING 05/31/2021 DIABETES-FOOT EXAM WITH MONOFILAMENT 05/31/2021 COVID-19 VACCINE ( season) 2024 DEPRESSION SCREENING 10/16/2024 DIABETES - URINE PROTEIN SCREENING 10/16/2024 DIABETES-HGB A1C 08/10/2025 02/08/2025, 10/2024, 05/31/2021 DIABETES-SERUM CREATININE 02/18/20262024, 02/17/2025, 02/16/2025, Additional history exists INFLUENZA VACCINE Completed 07/16/2024, 07/29/2020 HEPATITIS C SCREENING Completed 02/08/2025 HIB VACCINE Aged Out No longer eligi [...] this topic Medical Devices Implanted Type Area Early Morning Device Identifier Shelf Expiration Date Model / Serial / Lot 8.0mm Cannulated Locking Screw Implanted:Qty: 1 on 05/31/2021 by Mary Ann Elkins MD at [facility] Left: Leg [id number] / / Plate 6 Hl Lck Precontr Fem Lt Dist Implanted:Qty: 1 on 05/31/2021 by Mary Ann Elkins MD at [facility] Left: Leg [employer] 06/24/2028 [id number] / / 5.5mm Dt Poly Locking Screws Implanted:Qty: 2 on 05/31/2021 by Mary Ann Elkins MD at [facility] Left: Leg [employer] [id number] / / 5.5mm Ft Poly Locking Screws Implanted:Qty: 2 on 05/31/2021 by Mary Ann Elkins MD at [facility] Left: Leg [id number] / / 4.5mm Solid Cortical Bone Screw Implanted:Qty: 1 on 05/31/2021 by Mary Ann Elkins MD at [facility] Left: Leg [id number] / / 4.5 Solid Cortical Bone Screw Implanted:Qty: 1 on 05/31/2021 by Mary Ann Elkins MD at [facility] Left: Leg [id number] / / 4.5 Solid Cortical Bone Screw Implanted:Qty: 1 on 05/31/2021 by Mary Ann Elkins MD at [facility] Left: Leg [id number] / / 4.5 Solid Cortical Bone Screw Implanted:Qty: 1 on 05/31/2021 by Mary Ann Elkins MD at [facility] Left: Leg [id number] / / Explanted Type Area Early Morning Device Identifier Shelf Expiration Date Model / Serial / Lot Wire K 1.6mm 150mm 1 End Troc Pnt Ss Explanted:Qty: 1 on 05/31/2021 by Mary Ann Elkins MD at [facility] Left: Leg [employer] [id number] / / 5.5mm Non-Locking Screws Explanted:Qty: 1 on 05/31/2021 by Mary Ann Elkins MD at [facility] Left: Leg [id number] / / 4.5 Solid Cortical Bone Screw Explanted:Qty: 1 on 05/31/2021 by Mary Ann Elkins MD at [facility] Left: Leg [id number] / / Procedures Procedure Name Priority Date/Time Associated Diagnosis Comments GLUCOSE - POINT OF CARE Routine 02/19/20 5:26 PM CDT GLUCOSE - POINT OF CARE Routine 02/19/20 12:32 PM CDT GLUCOSE - POINT OF CARE Routine 02/19/20 8:28 AM CDT PHOSPHATIDYLETHANOL (PETH) AM Draw 02/18 3:38 AM CDT PT-INR [facility] AM Draw 02/18/2025 3:38 AM CDT CBC W AUTO DIFFERENTIAL AM Draw 02/19/20 3:38 AM CDT COMPREHENSIVE METABOLIC PANEL AM Draw 02/18/2025 3:38 AM CDT MAGNESIUM BLOOD AM Draw 02/18/2025 3:38 AM CDT PHOSPHORUS BLOOD AM Draw 02/18/2025 3:38 AM CDT GLUCOSE - POINT OF CARE Routine 02/18/20 8:33 PM CDT GLUCOSE - POINT OF CARE Routine 02/18/20 4:55 PM CDT XR ABDOMEN KUB PORTABLE STAT 02/18/20 12:49 PM CDT Generalized abdominal pain GLUCOSE - POINT OF CARE Routine 02/18/20 11:46 AM CDT GLUCOSE - POINT OF CARE Routine 02/18/20 8:29 AM CDT PT-INR [facility] AM Draw 02/17/2025 5:51 AM CDT CBC W AUTO DIFFERENTIAL AM Draw 02/18/20 5:51 AM CDT COMPREHENSIVE METABOLIC PANEL AM Draw 02/17/2025 5:51 AM CDT MAGNESIUM BLOOD AM Draw 02/17/2025 5:51 AM CDT PHOSPHORUS BLOOD AM Draw 02/17/2025 5:51 AM CDT GLUCOSE - POINT OF CARE Routine 02/17/20 9:14 PM CDT GLUCOSE - POINT OF CARE Routine 02/17/20 6:09 PM CDT GLUCOSE - POINT OF CARE Routine 02/17/20 12:11 PM CDT GLUCOSE - POINT OF CARE Routine 02/17/20 8:32 AM CDT PT-INR [facility] AM Draw 02/16/2025 5:11 AM CDT CBC W AUTO DIFFERENTIAL AM Draw 02/17/20 5:11 AM CDT COMPREHENSIVE METABOLIC PANEL AM Draw 02/16/2025 5:11 AM CDT MAGNESIUM BLOOD AM Draw 02/16/2025 5:11 AM CDT PHOSPHORUS BLOOD AM Draw 02/16/2025 5:11 AM CDT GLUCOSE - POINT OF CARE Routine 02/16/20 10:15 PM CDT GLUCOSE - POINT OF CARE Routine 02/16/20 5:05 PM CDT GLUCOSE - POINT OF CARE Routine 02/16/20 12:46 PM CDT XR ABDOMEN KUB PORTABLE STAT 02/16/20 12:14 PM CDT Ascites due to alcoholic cirrhosis (HCC) C. difficile diarrhea GLUCOSE - POINT OF CARE Routine 02/16/20 8:33 AM CDT PT-INR [facility] AM Draw 02/15/2025 5:17 AM CDT CBC W AUTO DIFFERENTIAL AM Draw 02/16/20 5:17 AM CDT COMPREHENSIVE METABOLIC PANEL AM Draw 02/15/2025 5:17 AM CDT MAGNESIUM BLOOD AM Draw 02/15/2025 5:17 AM CDT PHOSPHORUS BLOOD AM Draw 02/15/2025 5:17 AM CDT GLUCOSE - POINT OF CARE Routine 02/15/20 8:29 PM CDT GLUCOSE - POINT OF CARE Routine 02/15/20 5:26 PM CDT GLUCOSE - POINT OF CARE Routine 02/15/20 12:35 PM CDT GLUCOSE - POINT OF CARE Routine 02/15/20 8:38 AM CDT PT-INR [facility] AM Draw 02/14/2025 6:09 AM CDT CBC W AUTO DIFFERENTIAL AM Draw 02/15/20 6:09 AM CDT COMPREHENSIVE METABOLIC PANEL AM Draw 02/14/2025 6:09 AM CDT MAGNESIUM BLOOD AM Draw 02/14/2025 6:09 AM CDT PHOSPHORUS BLOOD AM Draw 02/14/2025 6:09 AM CDT GLUCOSE - POINT OF CARE Routine 02/14/20 8:20 PM CDT GLUCOSE - POINT OF CARE Routine 02/14/20 5:44 PM CDT GLUCOSE - POINT OF CARE Routine 02/14/20 12:38 PM CDT GLUCOSE - POINT OF CARE Routine 02/14/20 8:16 AM CDT PT-INR [facility] AM Draw 02/13/2025 5:22 AM CDT CBC W AUTO DIFFERENTIAL AM Draw 02/14/20 5:22 AM CDT COMPREHENSIVE METABOLIC PANEL AM Draw 02/13/2025 5:22 AM CDT MAGNESIUM BLOOD AM Draw 02/13/2025 5:22 AM CDT PHOSPHORUS BLOOD AM Draw 02/13/2025 5:22 AM CDT GLUCOSE - POINT OF CARE Routine 02/13/20 9:13 PM CDT GLUCOSE - POINT OF CARE Routine 02/13/20 5:36 PM CDT CULTURE URINE STAT 02/12/2025 1:43 PM CDT PROCALCITONIN LEVEL STAT 02/12/2025 1 :29 PM CDT GLUCOSE - POINT OF CARE Routine 02/13/20 11:27 AM CDT CREATININE URINE RANDOM STAT 02/13/20 9:33 AM CDT SODIUM URINE RANDOM STAT 02/12/2025 9 :33 AM CDT UREA NITROGEN URINE RANDOM STAT 02/12 9:33 AM CDT URINALYSIS W/MICROSCOPIC NO CULTURE STAT 02/12/2025 9:33 AM CDT GLUCOSE - POINT OF CARE Routine 02/13/20 8:22 AM CDT XR CHEST 1VW PORTABLE Routine 02/12/2025 5:00 AM CDT Pleural effusion presumed secondary to hepatic hydrothorax PT-INR [facility] AM Draw 02/12/2025 4:43 AM CDT CBC W AUTO DIFFERENTIAL AM Draw 02/13/20 4:43 AM CDT COMPREHENSIVE METABOLIC PANEL AM Draw 02/12/2025 4:43 AM CDT MAGNESIUM BLOOD AM Draw 02/12/2025 4:43 AM CDT PHOSPHORUS BLOOD AM Draw 02/12/2025 4:43 AM CDT GLUCOSE - POINT OF CARE Routine 02/12/20 10:27 PM CDT XR CHEST 1VW PORTABLE STAT 02/11/2025 5:34 PM CDT SOB (shortness of breath) GLUCOSE - POINT OF CARE Routine 02/12/20 4:15 PM CDT GLUCOSE - POINT OF CARE Routine 02/12/20 11:16 AM CDT GLUCOSE - POINT OF CARE Routine 02/12/20 7:55 AM CDT PT-INR [facility] AM Draw 02/11/2025 6:54 AM CDT CBC W AUTO DIFFERENTIAL AM Draw 02/12/20 6:54 AM CDT COMPREHENSIVE METABOLIC PANEL AM Draw 02/11/2025 6:54 AM CDT MAGNESIUM BLOOD AM Draw 02/11/2025 6:54 AM CDT PHOSPHORUS BLOOD AM Draw 02/11/2025 6:54 AM CDT GLUCOSE - POINT OF CARE Routine 02/11/20 9:29 PM CDT GLUCOSE - POINT OF CARE Routine 02/11/20 4:55 PM CDT GLUCOSE - POINT OF CARE Routine 02/11/20 11:51 AM CDT PT-INR [facility] AM Draw 02/10/2025 9:13 AM CDT CBC W AUTO DIFFERENTIAL AM Draw 02/11/20 9:13 AM CDT COMPREHENSIVE METABOLIC PANEL AM Draw 02/10/2025 9:13 AM CDT MAGNESIUM BLOOD AM Draw 02/10/2025 9:13 AM CDT PHOSPHORUS BLOOD AM Draw 02/10/2025 9:13 AM CDT GLUCOSE - POINT OF CARE Routine 02/11/20 8:13 AM CDT GLUCOSE - POINT OF CARE Routine 02/10/20 9:44 PM CDT GLUCOSE - POINT OF CARE Routine 02/10/20 5:48 PM CDT GLUCOSE - POINT OF CARE Routine 02/10/20 1:08 PM CDT MRI ABDOMEN W MRCP WO CONT W3D Routine 02/09/2025 10:52 AM CDT Elevated alkaline phosphatase level GLUCOSE - POINT OF CARE Routine 02/10/20 8:53 AM CDT CBC W AUTO DIFFERENTIAL AM Draw 02/10/20 5:11 AM CDT PT-INR [facility] AM Draw 02/09/2025 5:10 AM CDT COMPREHENSIVE METABOLIC PANEL AM Draw 02/09/2025 5:10 AM CDT MAGNESIUM BLOOD AM Draw 02/09/2025 5:10 AM CDT PHOSPHORUS BLOOD AM Draw 02/09/2025 5:10 AM CDT GLUCOSE - POINT OF CARE Routine 02/09/20 10:23 PM CDT GLUCOSE - POINT OF CARE Routine 02/09/20 4:54 PM CDT GLUCOSE - POINT OF CARE Routine 02/09/20 11:50 AM CDT GLUCOSE - POINT OF CARE Routine 02/09/20 8:40 AM CDT FERRITIN Routine 02/08/2025 4:34 AM CDT IRON + TRANSFERRIN PANEL Routine 025 4:34 AM CDT HEMOGLOBIN A1C Routine 02/08/2025 4:34 AM CDT HEPATITIS B SURFACE ANTIBODY QUANT Routine 02/08/2025 4:34 AM CDT HEPATITIS C AB SCREEN RFLX NAAT QUANT Routine 02/08/2025 4:34 AM CDT HEPATITIS B SURFACE ANTIGEN W RFLX CONFIRMATION Routine 02/08/2025 4:34 AM CDT HEPATITIS B CORE ANTIBODY TOTAL AM Draw 02/08/2025 4:34 AM CDT MITOCHONDRIAL ANTIBODY SCREEN AM Draw 02/08/2025 4:34 AM CDT LUIS CARLOS BLOOD SCREEN W/REFLEX TITER AM Draw 02/08/2025 4:34 AM CDT SMOOTH MUSCLE ANTIBODY W REFLEX TITER AM Draw 02/08/2025 4:34 AM CDT CERULOPLASMIN AM Draw 02/08/2025 4:34 AM CDT [id number] BLOOD AM Draw 2024 4:34 AM CDT GGT Routine 02/08/2025 4:33 AM CDT FOLATE Routine 02/08/2025 4:33 AM CDT VITAMIN B12 AM Draw 02/08/2025 4:33 AM CDT GLUCOSE - POINT OF CARE Routine 02/09/20 2:57 AM CDT CBC W AUTO DIFFERENTIAL STAT 02/09/20 12:15 AM CDT COMPREHENSIVE METABOLIC PANEL STAT 02/08/2025 12:15 AM CDT MAGNESIUM BLOOD STAT 02/08/2025 12:15 AM CDT PHOSPHORUS BLOOD STAT 02/08/2025 12:1 5 AM CDT PT-INR [facility] AM Draw 02/08/2025 12:15 AM CDT XR CHEST 1VW PORTABLE STAT 02/07/2025 11:22 PM CDT Decompensated hepatic cirrhosis (HCC) XR CHEST OUTSIDE Routine 01/30/2025 10:1 5 AM CDT from Last 3 Months Results * (ABNORMAL) GLUCOSE - POINT OF CARE (02/18/2025 5:26 PM CDT) Only the most recent of44 resultswithin the time period is included. Glucose WB/POC 182(H) 70 - 99 mg/dL 02/18/2025 5:29 PM CDT [facility] Specimen Type Cap Fingerstick 2024 5:29 PM CDT [facility] Blood BLOOD SPECIMEN / Unknown 02/18/2025 5:26 PM CDT 02/18/2025 5:29 PM CDT Heraclio Quinonez MD LAB - POINT OF CARE ORDERABLES Final Result [facility] [address] [address], [facility] [phone] * (ABNORMAL) PT-INR [facility] (02/18/2025 3:38 AM CDT) Only the most recent of11 resultswithin the time period is included. PT 16.8(H) 12.1 - 14.8 Seconds 02/18/2025 4:18 AM CDT [facility] INR 1.4 See Comment 02/18/2025 4:18 AM CDT [facility] Comment:The suggested therap eutic range for standard coumadin (warfarin) therapy is an INR of 2.0-3.0. For high-risk patients (Mechanical Mitral Valve Prosthesis, etc.), the suggested prophylactic therapeutic range is an INR of 2.5-3.5. Blood BLOOD SPECIMEN / Unknown Venipuncture / Unknown 02/18/2025 3:38 AM CDT 02/18/2025 3:50 AM CDT Duarte Mitchell DO LAB - COAGULATION ORDERABLES Fi nal Result [address] [address], [facility] [phone] * PHOSPHATIDYLETHANOL (PETH) (02/18/2025 3:38 AM CDT) PEth 16:0/18.1 (POPEth) <10 ng/mL 02/20/2025 2:31 PM CDT [facility] ([facility]) Comment: PEth 16:0/18:1 (POPEth) Less than 10 ng/mL............Not detected Less than 20 ng/mL............Abstinence or light alcohol consumption 20 - 200 ng/mL................Moderate alcohol consumption Greater than 200 ng/mL........Heavy alcohol consumption or chronic alcohol use (Reference: Filipe Hylton and Geraldo Ward 2018 J. Forensic Sci) PEth 16:0/18.2 (PLPEth) <10 ng/mL 02/20/2025 2:31 PM CDT [facility] ([facility]) Comment:Reference ranges are not well established. EER Peth See Note 02/20/2025 2:31 PM CDT [facility] ([facility]) Comment: Authorized individuals can access the [employer] Enhanced Report with an [employer] Connect account using the following link. Your local lab can assist you in obtaining the patient report if you don't have a Connect account. [email or web address] Interpretation PEth See Comment 02/20/2025 2:31 PM CDT [facility] ([facility]) Comment: Phosphatidylethanol (PEth) is a group of phospholipids formed in the presence of ethanol, phospholipase D and phosphatidylcholine. PEth is known to be a direct alcohol biomarker. The predominant PEth homologues are PEth 16:0/18:1 (POPEth) and PEth 16:0/18:2 (PLPEth), which account for 37-46% and 26-28% of the total PEth homologues, respectively. PEth is incorporated into the phospholipid membrane of red blood cells and has a general half-life of 4-10 days and a window of detection of 2-4 weeks. However, the window of detection is longer in individuals who chronically or excessively consume alcohol. The limit of quantification is 10 ng/mL. Serial monitoring of PEth may be helpful in monitoring alcohol abstinence over time. PEth results should be interpreted in the context of the patient's clinical and behavioral history. Patients with advanced liver disease may have falsely elevated PEth concentrations (Betsy OSULLIVAN et al 2018, Alcoholism Clinical & Experimental Research). This test was developed and its performance characteristics determined by [facility]. It has not been cleared or approved by the U.S. Food and Drug Administration. This test was performed in a CLIA-certified laboratory and is intended for clinical purposes. Performed By: [facility] [address] [place] [address] Medical Management Trainer: Koby Smith MD, PhD CLIA Number: [id number] Blood BLOOD SPECIMEN / Unknown Venipuncture / Unknown 02/18/2025 3:38 AM CDT 02/18/2025 3:51 AM CDT Deny Barber MD LAB - CHEMISTRY ORDERABLES Final Result [facility] ([facility]) [address] * (ABNORMAL) CBC W AUTO DIFFERENTIAL (02/18/2025 3:38 AM CDT) Only the most recent of11 resultswithin the time period is included. WBC 6.1 4.0 - 10.7 x10E9/L 02/18/2025 3:59 AM [facility] RBC Count 2.38(L) 3.90 - 5.20 x10E12/L 02/18/2025 3:59 AM [facility] Hemoglobin 7.6(L) 11.9 - 15.8 g/dL 02/18/2025 3:59 AM [facility] Hematocrit 23.4(L) 34.8 - 46.1 % 02/18/2025 3:59 AM [facility] MCV 98.3(H) 80.0 - 98.0 fL 02/18/2025 3:59 AM [facility] MCH 31.9 26.7 - 33.6 pg 02/18/2025 3:59 AM [facility] MCHC 32.5 31.7 - 36.3 g/dL 02/18/2025 3:59 AM [facility] RDW-CV 17.1(H) 11.3 - 14.8 % 02/18/2025 3:59 AM [facility] Platelet Count 191 150 - 420 x10E9/L 02/18/2025 3:59 AM [facility] MPV 11.4 7.8 - 11.4 fL 02/18/2025 3:59 AM [facility] Neutrophil % 61.7 41.0 - 74.0 % 02/18/2025 3:59 AM [facility] Lymphocyte % 13.6(L) 17.0 - 47.0 % 02/18/2025 3:59 AM [facility] Monocyte % 9.8 3.0 - 11.0 % 02/18/2025 3:59 AM [facility] Eosinophil % 14.1(H) 0.0 - 7.0 % 02/18/2025 3:59 AM [facility] Basophil % 0.5 0.0 - 1.6 % 02/18/2025 3:59 AM [facility] Immature Granulocytes % 0.3 0.0 - 1.0 % 02/18/2025 3:59 AM [facility] Neutrophil Absolute 3.77 1.60 - 7.50 x10E9/L 02/18/2025 3:59 AM [facility] Lymphocyte Absolute 0.83(L) 1.00 - 4.40 x10E9/L 02/18/2025 3:59 AM [facility] Monocyte Absolute 0.60 0.15 - 1.00 x10E9/L 02/18/2025 3:59 AM [facility] Eosinophil Absolute 0.86(H) 0.00 - 0.60 x10E9/L 02/18/2025 3:59 AM [facility] Basophil Absolute 0.03 0.00 - 0.13 x10E9/L 02/18/2025 3:59 AM [facility] Blood BLOOD SPECIMEN / Unknown Venipuncture / Unknown 02/18/2025 3:38 AM CDT 02/18/2025 3:51 AM CDT Duarte Mitchell DO LAB - HEMATOLOGY ORDERABLES Fin al Result [facility] [address] [place] [address], [facility] [phone] * (ABNORMAL) COMPREHENSIVE METABOLIC PANEL (02/18/2025 3:38 AM CDT) Only the most recent of11 resultswithin the time period is included. BUN 29(H) 7 - 26 mg/dL 02/18/2025 4:48 AM [facility] Creatinine 1.39(H) 0.56 - 0.96 mg/dL 02/18/2025 4:48 AM [facility] Sodium 139 136 - 145 mmol/L 02/18/2025 4:48 AM [facility] Potassium 4.1 3.5 - 4.5 mmol/L 02/18/2025 4:48 AM [facility] Chloride 101 98 - 107 mmol/L 02/18/2025 4:48 AM [facility] CO2 27 22 - 29 mmol/L 02/18/2025 4:48 AM [facility] Glucose 153(H) 70 - 99 mg/dL 02/18/2025 4:48 AM [facility] Calcium 9.5 8.4 - 10.2 mg/dL 02/18/2025 4:48 AM [facility] Protein Total 6.4 6.0 - 8.3 g/dL 02/18/2025 4:48 AM [facility] Albumin 3.9 3.4 - 5.0 g/dL 02/18/2025 4:48 AM [facility] Bilirubin Total 1.1 0.2 - 1.2 mg/dL 02/18/2025 4:48 AM [facility] Alkaline Phosphatase 310(H) 40 - 150 U/L 02/18/2025 4:48 AM [facility] ALT 10 5 - 55 U/L 02/18/2025 4:48 AM [facility] AST 17 5 - 34 U/L 02/18/2025 4:48 AM [facility] Anion Gap 11 6 - 16 02/18/2025 4:48 AM [facility] BUN/Creatinine Ratio 21 7 - 23 02/18/2025 4:48 AM [facility] Osmolality Calculated 297(H) 275 - 295 mOsm/kg 02/18/2025 4:48 AM [facility] Albumin/Globulin Ratio 1.6 1.1 - 2.3 02/18/2025 4:48 AM [facility] eGFR by CKD-EPI 41(L) >=90 mL/min/1.7 3 m2 02/18/2025 4:48 AM [facility] Blood BLOOD SPECIMEN / Unknown Venipuncture / Unknown 02/18/2025 3:38 AM CDT 02/18/2025 3:51 AM CDT us Duarte Mitchell DO LAB - CHEMISTRY ORDERABLES Manda curiel Result [facility] [address] [place] [address], [facility] [phone] * PHOSPHORUS BLOOD (02/18/2025 3:38 AM CDT) Only the most recent of11 resultswithin the time period is included. Phosphorus 4.0 2.9 - 5.1 mg/dL 02/18/2025 4:48 AM CDT [facility] Blood BLOOD SPECIMEN / Unknown Venipuncture / Unknown 02/18/2025 3:38 AM CDT 02/18/2025 3:51 AM CDT Duarte Mitchell LAB - CHEMISTRY ORDERABLES Manda l Result [facility] [address] [place] [address], [place] [phone] * MAGNESIUM BLOOD (02/18/2025 3:38 AM CDT) Only the most recent of11 resultswithin the time period is included. Magnesium 2.0 1.6 - 2.6 mg/dL 02/18/2025 4:48 AM CDT [facility] Blood BLOOD SPECIMEN / Unknown Venipuncture / Unknown 02/18/2025 3:38 AM CDT 02/18/2025 3:51 AM CDT Duarte Mitchell LAB - CHEMISTRY ORDERABLES Manda l Result Performing Organization Address City/[facility]/ZIP Co de Phone Number [address] [address], [place] [phone] * XR Abdomen Kub Portable (02/17/2025 12:49 PM CDT) Only the most recent of2 resultswithin the time period is included. Anatomical Region Laterality Modality Abdomen Digital Radiogra phy 02/17/2025 1:20 PM CDT Impressions 02/17/2025 8:51 PM CDT IMPRESSION: Non-obstructive bowel gas pattern. > Dictated by Jeremy Meyer DO (Shovel Engineer), 02/17/2025 1:45 PM. IMelinda MD have personally reviewed and interpreted this examination/study. > Interpreting Provider: Melinda Calderon MD on 02/17/2025 8:51 PM Narrative 02/17/2025 8:51 PM CDT PROCEDURE: XR ABDOMEN KUB PORTABLE, DATE/TIME OF EXAM: 02/17/2025 12:49 PM, LOCATION [facility] INDICATION: R10.84: Generalized abdominal pain ADDITIONAL CLINICAL INFORMATION: Ordering Provider Reason For Exam: abdominal pain COMPARISON: Abdominal x-ray 02/15/2025 FINDINGS: There is no dilatation of small or large bowel. Evaluation for pneumoperitoneum is limited on supine imaging. Degenerative changes of the lumbar spine.. Partially visualized right hip total arthroplasty. Small right perfusion. Procedure Note Melinda Calderon MD - 02/17/2025 PROCEDURE: XR ABDOMEN KUB PORTABLE, DATE/TIME OF EXAM: 02/17/2025 12:49PM, LOCATION [facility] INDICATION: R10.84: Generalized abdominal pain ADDITIONAL CLINICAL INFORMATION: Ordering Provider Reason For Exam: abdominal pain COMPARISON: Abdominal x-ray 02/15/2025 FINDINGS: There is no dilatation of small or large bowel. Evaluation for pneumoperitoneum is limited on supine imaging. Degenerative changes ofthe lumbar spine.. Partially visualized right hip total arthroplasty. Small right perfusion. IMPRESSION: Non-obstructive bowel gas pattern. > Dictated by Jeremy Meyer DO (Shovel Engineer), 02/17/2025 1:45 PM. IMelinda MD have personally reviewed and interpreted this examination/study. > Interpreting Provider: Melinda Calderon MD on 02/17/2025 8:51 PM Ollie Rice MD DIAGNOSTIC IMAGING ORDERABLES Fi nal Result * CULTURE URINE (02/12/2025 1:43 PM CDT) Culture Urine 10,000-50,000 CFU/mL urogenital xi EUNICE 02/13/2025 10:46 PM CDT [facility] Urine URINE SPECIMEN OBTAINED BY CLEAN CATCH PROCEDURE / Unknown Collection / Unknown 02/12/2025 1:43 PM CDT 02/12/2025 1:55 PM CDT Duarte Mitchell DO LAB - MICROBIOLOGY ORDERABLES F inal Result [facility] [address] [place] [address], [facility] [phone] * (ABNORMAL) PROCALCITONIN LEVEL (02/12/2025 1:29 PM CDT) PROCALCITONIN 0.35(H) <=0.10 ng/mL 02/12/2025 2:30 PM CDT [facility] Blood BLOOD SPECIMEN / Unknown Lab Venipuncture / Unknown 02/12/2025 1:29 PM CDT 02/12/2025 1:32 PM CDT Narrative [facility] - 02/12/2025 2:30 PM CDT The change in procalcitonin (PCT) concentration over time provides support in decision making on antibiotic discontinuation for suspected or confirmed septic patients. Follow-up samples should be tested once every 1-2 days based upon physician discretion taking into account the patient s evolution and progress. Consider discontinuation of antibiotic therapy if the PCT current is <= 0.5 ng/mL or if the delta PCT is > 80%. Duration of antibiotics should not be determined solely on PCT; established guidelines for the indication should be followed. PCT peak: Highest observed PCT concentration PCT current: Most recent PCT concentration Calculate delta PCT using the following equation: Delta PCT = PCT Peak PCT current X 100% PCT Peak The Change in Procalcitonin Calculator is available at [email or web address] If clinical picture has not improved and PCT remains high, reevaluate and consider treatment failure or other causes. Duarte Mitchell DO LAB - CHEMISTRY ORDERABLES Manda l Result [facility] [address] [place] [address], [place] [phone] * (ABNORMAL) URINALYSIS W/MICROSCOPIC NO CULTURE (02/12/2025 9:33 AM CDT) Color UA Yellow Yellow, Straw 02/12/2025 9:54 AM [facility] Clarity UA Clear Clear 02/12/2025 9:54 AM [facility] Glucose UA 4+(A) Normal 02/12/2025 9:54 AM [facility] Bilirubin UA Negative Negative 02/12/2025 9:54 AM [facility] Ketone UA Negative Negative 02/12/2025 9:54 AM [facility] Specific [place] UA 1.015 1.005 - 1.030 02/12/2025 9:54 AM [facility] Blood UA Negative Negative 02/12/2025 9:54 AM [facility] pH UA 5.5 5.0 - 9.0 pH 02/12/2025 9:54 AM [facility] Protein UA Negative Negative 02/12/2025 9:54 AM [facility] Urobilinogen UA Normal Normal mg/dL 02/12/2025 9:54 AM [facility] Nitrite UA Negative Negative 02/12/2025 9:54 AM [facility] Leukocyte Esterase UA 75 YISEL/uL(A) Negative 02/12/2025 9:54 AM [facility] RBC UA 0-2 0 - 5 # /hpf 02/12/2025 9:54 AM [facility] WBC UA 0-5 0 - 5 # /hpf 02/12/2025 9:54 AM [facility] Bacteria UA Trace(A) None Seen 02/12/2025 9:54 AM [facility] Squamous Epithelial Cells 0-2 0 - 5 /hpf 02/12/2025 9:54 AM [facility] Mucus UA 1+ /LPF 02/12/2025 9:54 AM [facility] Budding Yeast Moderate(A) None seen /hpf 02/12/2025 9:54 AM [facility] Hyaline Casts 3-5(A) 0 - 2 /LPF 02/12/2025 9:54 AM [facility] Calcium Oxalate Crystals Occasional( A) None seen /HPF 02/12/2025 9:54 AM [facility] Urine URINE SPECIMEN OBTAINED BY CLEAN CATCH PROCEDURE / Unknown Collection / Unknown 02/12/2025 9:33 AM CDT 02/12/2025 9:42 AM CDT us Duarte Mitchell DO LAB - URINALYSIS ORDERABLES Fin al Result [address] [address], [place] [phone] * SODIUM URINE RANDOM (02/12/2025 9:33 AM CDT) Sodium Urine <20 Not Established mmol/L 02/12/2025 10:09 AM CDT [facility] Urine URINE SPECIMEN OBTAINED BY CLEAN CATCH PROCEDURE / Unknown Collection / Unknown 02/12/2025 9:33 AM CDT 02/12/2025 9:42 AM CDT us Duarte Mitchell DO LAB - URINE CHEMISTRY ORDERABLE S Final Result Performing Organization Address [facility]/ZIP Co de Phone Number [address] [address], [place] [phone] * UREA NITROGEN URINE RANDOM (02/12/2025 9:33 AM CDT) Urea Nitrogen Random Urine 416 Not Established mg/dL 02/12/2025 10:09 AM CDT [facility] Urine URINE SPECIMEN OBTAINED BY CLEAN CATCH PROCEDURE / Unknown Collection / Unknown 02/12/2025 9:33 AM CDT 02/12/2025 9:42 AM CDT us Duarte Mitchell DO LAB - URINE CHEMISTRY ORDERABLE S Final Result Performing Organization Address [facility]/ZIP Co de Phone Number [address] [address], [place] [phone] * CREATININE URINE RANDOM (02/12/2025 9:33 AM CDT) Creatinine Urine 110.93 Not Established mg/dL 02/12/2025 10:09 AM CDT [facility] Urine URINE SPECIMEN OBTAINED BY CLEAN CATCH PROCEDURE / Unknown Collection / Unknown 02/12/2025 9:33 AM CDT 02/12/2025 9:42 AM CDT Duarte Mitchell DO LAB - URINE CHEMISTRY ORDERABLE S Final Result [place] [id number] [place] [address], [facility] [phone] * XR Chest 1Vw Portable (02/12/2025 5:00 AM CDT) Only the most recent of3 resultswithin the time period is included. Anatomical Region Laterality Modality Chest Digital Radiogra phy 02/12/2025 1:00 PM CDT Impressions 02/12/2025 1:01 PM CDT IMPRESSION: *Stable cardiomediastinal silhouette. Mild pulmonary vascular congestion. Similar right pleural effusion with associated atelectasis. No pneumothorax or left pleural effusion. The left lung is relatively clear. > Interpreting Provider: Melinda Calderon MD on 02/12/2025 1:01 PM Narrative 02/12/2025 1:01 PM CDT PROCEDURE: XR CHEST 1VW PORTABLE DATE/TIME OF EXAM: 02/12/2025 5:00 AM CLINICAL INFORMATION: None relevant/not provided if blank. Indication: J90: Pleural effusion Additional History: COMPARISON: 02/11/2025 at 5:36 PM Procedure Note Melinda Calderon MD - 02/12/2025 PROCEDURE: XR CHEST 1VW PORTABLE DATE/TIME OF EXAM: 02/12/2025 5:00 AM CLINICAL INFORMATION: None relevant/not provided if blank. Indication: J90: Pleural effusion Additional History: COMPARISON: 02/11/2025 at 5:36 PM IMPRESSION: *Stable cardiomediastinal silhouette. Mild pulmonary vascularcongestion. Similar right pleural effusion with associated atelectasis. Nopneumothorax or left pleural effusion. The left lung is relatively clear. > Interpreting Provider: Melinda Calderon MD on 02/12/2025 1:01 PM us Duarte Mitchell DO DIAGNOSTIC IMAGING ORDERABLES F inal Result * MRI Abdomen W Mrcp Wo Cont W3D (02/09/2025 10:52 AM CDT) Anatomical Region Laterality Modality Abdomen Magnetic Resonan ce 02/09/2025 8:59 PM CDT Impressions 02/09/2025 9:15 PM CDT Impression: 1.Liver: Cirrhosis with features of portal hypertension. 2.Hepatic observations: No arterial hyperenhancing or nonhyperenhancing hepatic observations identified. 3.Biliary system: Cholelithiasis. Diffuse gallbladder wall edema is noted, likely related to ascites/cirrhosis. No biliary dilation seen. 4.Others: Unremarkable other abdominal viscera. > Interpreting Provider: Morris De La Vega MD on 02/09/2025 9:15 PM Narrative 02/09/2025 9:15 PM CDT PROCEDURE: MRI ABDOMEN W MRCP WO CONT W3D, DATE/TIME OF EXAM: 02/09/2025 10:54 AM, LOCATION [facility] INDICATION: R74.8: Elevated alkaline phosphatase level ADDITIONAL CLINICAL INFORMATION: Ordering Provider Reason For Exam: Technologist Note: Additional: COMPARISON: None. TECHNIQUE: Noncontrast followed by multiphasic contrast-enhanced MRI examination of was performed using routine multiplanar sequences. MRCP: 3-D MRCP images were obtained and MIP reconstruction were also performed from the source images. CONTRAST: 20 mL of MultiHance was used as intravenous contrast. No procedure related complications seen. IMAGE QUALITY: Suboptimal diagnostic quality. Motion and breathing artifacts limiting assessment. Findings: Lower Chest: Moderate sized right and small pleural effusion associated with atelectasis of the adjacent lungs. Hepatobiliary system Liver morphology: Nodular outline with the fibrosis and distortion of the liver parenchyma architecture consistent with cirrhosis. Steatosis: None. Iron: None. Varices: Small gastroesophageal varices seen. Spleen: Enlarged, measuring 13.5 cm craniocaudally. Normal splenic signal intensity. Ascites: Small volume. Focal liver observations No arterial hyperenhancing or nonhyperenhancing hepatic observations as seen. Hepatic vasculature Portal and hepatic veins: Patent. Arterial anatomy: Conventional. Biliary system: Gallbladder: Gallstones noted in the lumen. Diffuse gallbladder mural thickening noted, likely related to portal hypertension/ascites. Intrahepatic bile ducts: No intrahepatic biliary dilation. Incidentally noted. These cysts. Extrahepatic bile ducts: CBD is normal caliber and course. Common bile duct measures: 5 mm. Ductal stones or obstructing lesions: None. Pancreas: Pancreas is normal morphology and signal intensity. No focal lesions seen. Pancreatic duct: Pancreatic duct is nondilated. Retroperitoneum Adrenals: Unremarkable. Kidneys: Normal bilateral kidneys. Lymph nodes: No significantly enlarged retroperitoneal or mesenteric lymph node enlargement. Blood vessels: Aorta and inferior vena cava are unremarkable. Gastrointestinal: Stomach and visualized small bowel loops and colon are unremarkable. Other findings: None. Procedure Note Morris De La Vega MD - 02/09/2025 PROCEDURE: MRI ABDOMEN W MRCP WO CONT W3D, DATE/TIME OF EXAM:02/09/2025 10:54 AM, LOCATION [facility] INDICATION: R74.8: Elevated alkaline phosphatase level ADDITIONAL CLINICAL INFORMATION: Ordering Provider Reason For Exam: Technologist Note: Additional: COMPARISON: None. TECHNIQUE: Noncontrast followed by multiphasic contrast-enhanced MRI examination of was performed using routine multiplanar sequences. MRCP: 3-D MRCP images were obtained and MIP reconstruction were also performed from the source images. CONTRAST: 20 mL of MultiHance was used as intravenous contrast. No procedurerelated complications seen. IMAGE QUALITY: Suboptimal diagnostic quality. Motion and breathing artifacts limiting assessment. Findings: Lower Chest: Moderate sized right and small pleural effusion associated withatelectasis of the adjacent lungs. Hepatobiliary system Liver morphology: Nodular outline with the fibrosis and distortion ofthe liver parenchyma architecture consistent with cirrhosis. Steatosis: None. Iron: None. Varices: Small gastroesophageal varices seen. Spleen: Enlarged, measuring 13.5 cm craniocaudally. Normal splenicsignal intensity. Ascites: Small volume. Focal liver observations No arterial hyperenhancing or nonhyperenhancing hepatic observations as seen. Hepatic vasculature Portal and hepatic veins: Patent. Arterial anatomy: Conventional. Biliary system: Gallbladder: Gallstones noted in the lumen. Diffuse gallbladder mural thickening noted, likely related to portal hypertension/ascites. Intrahepatic bile ducts: No intrahepatic biliary dilation. Incidentally noted. These cysts. Extrahepatic bile ducts: CBD is normal caliber and course. Common bile duct measures: 5 mm. Ductal stones or obstructing lesions: None. Pancreas: Pancreas is normal morphology and signal intensity. No focal lesions seen. Pancreatic duct: Pancreatic duct is nondilated. Retroperitoneum Adrenals: Unremarkable. Kidneys: Normal bilateral kidneys. Lymph nodes: No significantly enlarged retroperitoneal or mesentericlymph node enlargement. Blood vessels: Aorta and inferior vena cava are unremarkable. Gastrointestinal: Stomach and visualized small bowel loops and colon are unremarkable. Other findings: None. Impression: 1.Liver: Cirrhosis with features of portal hypertension. 2.Hepatic observations: No arterial hyperenhancing or nonhyperenhancing hepatic observations identified. 3.Biliary system: Cholelithiasis. Diffuse gallbladder wall edema isnoted, likely related to ascites/cirrhosis. No biliary dilation seen. 4.Others: Unremarkable other abdominal viscera. > Interpreting Provider: Morris De La Vega MD on 59:15 PM Duarte Mitchell DO MR ORDERABLES Final Result * HEPATITIS C AB SCREEN RFLX NAAT QUANT (02/08/2025 4:34 AM CDT) Pathologist [facility] Hepatitis C Antibody Non-react faizan Non-reac tive 02/08/2025 6:02 AM CDT [facility] Comment:Hepatitis C Antibody screen indicates no serologic evidence of past or current infection with Hepatitis C Virus. Patients with unexplained liver disease who are immunocompromised or suspected of having acute Hepatitis C infection may benefit from Nucleic Acid Test (RUBIA) for Hepatitis C Viral RNA to confirm Hepatitis C status. Blood BLOOD SPECIMEN / Unknown Lab Venipuncture / Unknown 02/08/2025 4:34 AM CDT 02/08/2025 5:02 AM CDT Duarte Mitchell DO LAB - CHEMISTRY ORDERABLES Manda l Result [facility] [address] [place] [phone], [place] [phone] * SMOOTH MUSCLE ANTIBODY W REFLEX TITER (02/08/2025 4:34 AM CDT) Pathologist [facility] F-Actin Antibody IgG 6 0 - 19 Units 02/10/2025 5:19 PM CDT [facility] ([facility]) Comment: If F-Actin (Smooth Muscle) Antibody, IgG is negative, the Smooth Muscle Antibody titer by IFA is not performed. REFERENCE INTERVAL: F-Actin (Smooth Muscle) Antibody, IgG by CALE 19 Units or less ....... Negative 20 - 30 Units .......... Weak Positive-Suggest repeat testing in two to three weeks with fresh specimen. 31 Units or greater..... Positive-Suggestive of autoimmune hepatitis type 1 or chronic active hepatitis. F-actin IgG antibodies have been shown to have increased sensitivity for autoimmune hepatitis (AIH) but lower specificity than smooth muscle antibodies (SMA). F-actin IgG antibodies can also be seen in SMA-negative disease controls (non-AIH), especially in patients with primary biliary cirrhosis and chronic hepatitis C infections. Some patients with AIH may be SMA-positive but negative for F-actin IgG. Consider testing for SMA by IFA if suspicion for AIH is strong. Performed By: [facility] [address] [place] [id number] Medical Management Trainer: Koby Smith MD, PhD CLIA Number: [id number] Blood BLOOD SPECIMEN / Unknown Lab Venipuncture / Unknown 02/08/2025 4:34 AM CDT 02/08/2025 5:02 AM CDT Duarte Mitchell DO LAB - SEROLOGY ORDERABLES Final Result [facility]) [address] [place] [address], [facility] * MITOCHONDRIAL ANTIBODY SCREEN (02/08/2025 4:34 AM CDT) Mitochondrial M2 Antibody 4.9 0.0 - 24.9 Units 02/10/2025 5:19 PM CDT [facility] ([facility]) Comment: REFERENCE INTERVAL: Mitochondrial (M2) Antibody, IgG 20.0 Units or less ......... Negative 20.1 - 24.9 Units........... Equivocal 25.0 Units or greater....... Positive Anti-mitochondrial antibodies (AMA) are thought to be present in 90-95% of patients with primary biliary cholangitis (PBC). However, the frequency of detected antibodies may be cohort or assay dependent, as lower sensitivities have been reported. Not all PBC patients are positive for AMA; some patients may be positive for SP100 and/or GP210 antibodies. A negative result does not rule out PBC. Performed By: [facility] [address] [place] [address] Medical Management Trainer: Koby Smith MD, PhD CLIA Number: [id number] Blood BLOOD SPECIMEN / Unknown Lab Venipuncture / Unknown 02/08/2025 4:34 AM CDT 02/08/2025 5:02 AM CDT Duarte Mitchell DO LAB - CHEMISTRY ORDERABLES Manda l Result [facility] ([facility]) [address] [place] [address], [facility] * (ABNORMAL) HEPATITIS B SURFACE ANTIBODY QUANT (02/08/2025 4:34 AM CDT) Hepatitis B Virus Surface Antibody Reactive( A) Non-react faizan 02/08/2025 6:02 AM CDT [facility] Comment: > 12 mIU/mL Hepatitis B surface Antibody (HBsAb). Reactive for HBsAb - individual is considered immune to Hepatitis B Virus infection. Hepatitis B Surface Antibody Quantitative 12.6(H) <8.0 mIU/mL 02/08/2025 6:02 AM CDT [facility] Comment: Hepatitis B Surface Antibody Numeric Result Interpretation: Nonreactive: <8.0 mIU/mL Indeterminate: 8.0 - 12.0 mIU/mL Reactive: >12.0 mIU/mL Blood BLOOD SPECIMEN / Unknown Lab Venipuncture / Unknown 02/08/2025 4:34 AM CDT 02/08/2025 5:02 AM CDT Narrative [facility] - 02/08/2025 6:02 AM CDT This assay should not be used for blood, plasma, or tissue donor screening. This assay is not recommended for neonates born to HBV-infected or suspected HBV-infected mothers. us Duarte Mitchell DO LAB - SEROLOGY ORDERABLES Final Result [facility] [address] [place] [address], [facility] [phone] * LUIS CARLOS BLOOD SCREEN W/REFLEX TITER (02/08/2025 4:34 AM CDT) LUIS CARLOS IgG None Detected None Detected 02/11/2025 12:10 AM CDT [facility] ([facility]) Comment: If suspicion of connective tissue disease is strong and LUIS CARLOS EIA is negative, consider testing for LUIS CARLOS by IFA ([id number]). INTERPRETIVE INFORMATION: Anti-Nuclear Antibodies (LUIS CARLOS), IgG by CALE Antinuclear Antibodies (LUIS CARLOS), IgG by CALE: LUIS CARLOS specimens are screened using enzyme-linked immunosorbent assay (CALE) methodology. All CALE results reported as Detected are further tested by indirect fluorescent assay (IFA) using HEp-2 substrate with an IgG-specific conjugate. The LUIS CARLOS CALE screen is designed to detect antibodies against dsDNA, histones, SS-A (Ro), SS-B (La), Ward, Ward/CLAIMS COORDINATOR, Scl-70, Sylvia-1, centromeric proteins, other antigens extracted from the HEp-2 cell nucleus. LUIS CARLOS CALE assays have been reported to have lower sensitivities than LUIS CARLOS IFA for systemic autoimmune rheumatic diseases (SARD). Negative results do not necessarily rule out SARD. Performed By: [facility] [address] [place] [address] Medical Management Trainer: Koby Smith MD, PhD CLIA Number: [id number] Blood BLOOD SPECIMEN / Unknown Lab Venipuncture / Unknown 02/08/2025 4:34 AM CDT 02/08/2025 5:02 AM CDT Duarte Mitchell DO LAB - CHEMISTRY ORDERABLES Manda l Result [facility] ([facility]) [address] [place], [place] [id number] [place] [address] * HEMOGLOBIN A1C (02/08/2025 4:34 AM CDT) Hemoglobin A1c 5.4 <=5.6 % 02/08/2025 8:35 AM CDT [facility] Estimated Average Glucose 108 mg/dL 02/08/2025 8:35 AM CDT [facility] Comment: HbA1c Interpretation: Normal : < 5.7% Pre-diabetes: 5.7-6.4% Diabetes: Equal to or greater than 6.5% Test results diagnostic of diabetes should be repeated for confirmation. Treatment target values recommended by ADA and other clinical organizations should be used to evaluate metabolic control in patients. Reference: [place] [employer], Standards of Care in Diabetes -2020 In patients 70 years and older consider HbA1c target range of 7.0-7.5% (Reference: Phu Pisano et al. JAMDA. 2012) The Sebia assay for the measurement of HbA1c is a National Glycohemoglobin Standardization Program (NGSP) certified method. Blood BLOOD SPECIMEN / Unknown Lab Venipuncture / Unknown 02/08/2025 4:34 AM CDT 02/08/2025 5:07 AM CDT Duaret Mitchell DO LAB - CHEMISTRY ORDERABLES Manda l Result [address] [address], [facility] [phone] * CERULOPLASMIN (02/08/2025 4:34 AM CDT) Ceruloplasmin 29 20 - 60 mg/dL 02/08/2025 5:48 AM CDT [facility] Blood BLOOD SPECIMEN / Unknown Lab Venipuncture / Unknown 02/08/2025 4:34 AM CDT 02/08/2025 5:02 AM CDT Duarte Mitchell DO LAB - CHEMISTRY ORDERABLES Manda l Result [address] [address], [facility] [phone] * VVOQU-2-[id number] BLOOD (02/08/2025 4:34 AM CDT) Qcuwm-0-Mzgjxi ypsin 189 90 - 200 mg/dL 02/08/2025 5:48 AM CDT [facility] Blood BLOOD SPECIMEN / Unknown Lab Venipuncture / Unknown 02/08/2025 4:34 AM CDT 02/08/2025 5:02 AM CDT Duarte Mitchell DO LAB - CHEMISTRY ORDERABLES Manda l Result Performing Organization Address City/[facility]/ZIP Co de Phone Number [address] [address], [facility] [phone] * HEPATITIS B CORE ANTIBODY TOTAL (02/08/2025 4:34 AM CDT) Pathologist [facility] HBc Antibody Total Non-reacti ve Non-reacti ve 02/08/2025 6:02 AM CDT [facility] Blood BLOOD SPECIMEN / Unknown Lab Venipuncture / Unknown 02/08/2025 4:34 AM CDT 02/08/2025 5:02 AM CDT Duarte Mitchell DO LAB - CHEMISTRY ORDERABLES Manda l Result Performing Organization Address [facility]/ZIP Co de Phone Number [address] [address], [place] [phone] * HEPATITIS B SURFACE ANTIGEN W RFLX CONFIRMATION (02/08/2025 4:34 AM CDT) Pathologist [facility] Hepatitis B Virus Surface Antigen Non-reacti ve Non-reacti ve 02/08/2025 6:02 AM CDT [facility] Blood BLOOD SPECIMEN / Unknown Lab Venipuncture / Unknown 02/08/2025 4:34 AM CDT 02/08/2025 5:02 AM CDT Duarte Mitchell DO LAB - CHEMISTRY ORDERABLES Manda l Result Performing Organization Address City/[facility]/ZIP Co de Phone Number [address] [address], [place] [phone] * (ABNORMAL) IRON + TRANSFERRIN PANEL (02/08/2025 4:34 AM CDT) Pathologist [facility] Iron 210(H) 40 - 150 ug/dL 02/08/2025 5:48 AM CDT [facility] Transferrin 156(L) 174 - 382 mg/dL 02/08/2025 5:48 AM CDT [facility] Transferrin Saturation % 100(H) 16 - 50 % 02/08/2025 5:48 AM CDT [facility] TIBC Calculated 195(L) 240 - 450 ug/dL 02/08/2025 5:48 AM CDT [facility] Blood BLOOD SPECIMEN / Unknown Lab Venipuncture / Unknown 02/08/2025 4:34 AM CDT 02/08/2025 5:02 AM CDT us Duarte Mitchell DO LAB - CHEMISTRY ORDERABLES Manda l Result Performing Organization Address City/[facility]/ZIP Co de Phone Number [address] [address], [place] [phone] * (ABNORMAL) FERRITIN (02/08/2025 4:34 AM CDT) Ferritin 816(H) 13 - 204 ng/mL 02/08/2025 6:02 AM CDT [facility] Blood BLOOD SPECIMEN / Unknown Lab Venipuncture / Unknown 02/08/2025 4:34 AM CDT 02/08/2025 5:02 AM CDT us Duarte Mitchell DO LAB - CHEMISTRY ORDERABLES Manda l Result [address] [address], [place] [phone] * (ABNORMAL) GGT (02/08/2025 4:33 AM CDT) GGT 270(H) 9 - 64 Units/L 02/08/2025 5:52 AM CDT [facility] Blood BLOOD SPECIMEN / Unknown Lab Venipuncture / Unknown 02/08/2025 4:33 AM CDT 02/08/2025 5:11 AM CDT Duarte Paula DO LAB - CHEMISTRY ORDERABLES Manda l Result Performing Organization Address City/[facility]/ZIP Co de Phone Number [facility] [address] [place] [address], [place] [phone] * FOLATE (02/08/2025 4:33 AM CDT) Folate 18.9 7.0 - 31.4 ng/mL 02/08/2025 6:17 AM CDT [facility] Blood BLOOD SPECIMEN / Unknown Lab Venipuncture / Unknown 02/08/2025 4:33 AM CDT 02/08/2025 5:11 AM CDT Duarte Mitchell LAB - CHEMISTRY ORDERABLES Manda l Result Performing Organization Address [facility] Co de Phone Number [address] [address], [place] [phone] * (ABNORMAL) VITAMIN B12 (02/08/2025 4:33 AM CDT) Vitamin B12 1,495(H) 213 - 816 pg/mL 02/08/2025 6:17 AM CDT [facility] Blood BLOOD SPECIMEN / Unknown Lab Venipuncture / Unknown 02/08/2025 4:33 AM CDT 02/08/2025 5:11 AM CDT Duarte Mitchell DO LAB - CHEMISTRY ORDERABLES Manda l Result Performing Organization Address [facility] Co de Phone Number [facility] [address] [place] [address], [place] [phone] * XR Chest Outside (01/30/2025 10:15 AM CDT) Narrative [facility] - 02/20/2025 10:16 AM CDT This is a study from an outside facility that has been uploaded into PACS. Provider [employer] [facility] Final Result Performing Organization Address City/[facility]/ZIP Co de Phone Number [facility] from Last 3 Months Additional Health Concerns Infection Onset Date Last Indicated C DIFF Comment:Added from external infection. Source: [facility]. 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
--- OUTSIDE RECORDS SUMMARY | 2025-03-25 12:45 | XMS_ITS | Referral Summary ---
Author Organization [facility] Address [address] [place] [address] Care Team Providers Care Dry Cleaning Counter Clerk Name Role Phone Augustus Birch MD Unavailable Ghanshyam Ruiz NP Primary Care Provider [phone] Encounters Date Type Department Care Team Description 02/27/2025 Orders Only [facility] [phone] Unknown, Notinfile 02/25/2025 Orders Only [facility] [phone] Unknown, Notinfile 02/24/2025 Orders Only [facility] [phone] Unknown, Notinfile 02/22/2025 Orders Only [facility] [phone] Unknown, Notinfile 02/21/2025 Orders Only [facility] [phone] Unknown, Notinfile 02/19/2025 Orders Only [facility] [phone] Unknown, Notinfile 01/31/2025 Hospital Encounter [facility] ADMIT [address] [place] [address] Kelvin Win MD 01/14/2025 Telephone [facility] Cardiology [address] [place] [address] Carlitos Edmonds MD 12/26/2024 9:15 AM CDT - 12/26/2024 11:59 PM CDT Hospital Encounter [facility] MOB 1 DIAG IMG [address] [place] [address] Closed fracture of medial portion of left tibial plateau, initial encounter Discharge Disposition: Discharge to home or self care 12/26/2024 9:30 AM CDT Office Visit [facility] Orthopedics and Sports Medicine [address] [facility] [address] [place] [address] Samara Soto PA Closed fracture of medial portion of left tibial plateau with routine healing, subsequent encounter (Primary Dx) 12/25/2024 9:30 AM CDT Office Visit [facility] Cardiology [address] [place] [address] Bridget Nicholson NP Congestive heart failure, unspecified HF chronicity, unspecified heart failure type (HCC) (Primary Dx); Lymphedema of both lower extremities; Closed fracture of medial portion of left tibial plateau, initial encounter; Chronic venous insufficiency of lower extremity from Last 3 Months Allergies Active Allergy [...] mouth daily Active 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 CATHRNY (acute kidney injury) 11/14/2024 Cirrhosis of liver [...] Tobacco: Never Tobacco Cessation:Counseling Given: Not Answered [facility] Utilities Answer Date Recorded In the past 12 months has [employer], gas, oil, or water [employer] threatened to shut off services in your [...] week 11/12/2024 How often do you attend [facility] or taoism services? More than 4 times per year 11/12/2024 Do you belong to any clubs o r organizations such as latter day groups, unions, fraternal or athletic groups, or [...] were you homeless or living in a residential (including now)? No 11/12/2024 Personal Safety Answer [...] 36.4 C (97.5 F) 11/20/2024 4:02 AM PROPERTY UTILIZATION OFFICER Respiratory Rate 18 11/20/2024 8:44 AM PROPERTY UTILIZATION OFFICER Oxygen Saturation 99% 12/25/2024 9:24 AM [...] encounter HEMOGLOBIN A1C Routine 11/16/2024 9:56 AM PROPERTY UTILIZATION OFFICER POCT LIPID PANEL Routine 11/15/2023 2:47 PM PROPERTY UTILIZATION OFFICER Lipid screening from Last 3 Months or Most Recently Relevant to Health Maintenance Results * (ABNORMAL) eGFR (02/27/2025 5:32 AM CDT) [facility] eGFR 37(L) >=60 mL/min/1. 73 m2 [facility] Comment: Interpretive [...] was last reviewed 2021. Testing performed by: [address] [address] Blood 02/27/2025 5:32 AM CDT 02/27/2025 8:24 AM CDT us Notinfile Unknown LAB BLOOD ORDERABLES Final Res ult [place] [id number] [facility] Department [place] [address] * (ABNORMAL) Differential, auto (02/27/2025 5:32 AM CDT) Neutrophil abs 3.62 1.50 - 6.50 K/cumm [facility] Comment:Testing performed by : [address] [address] Imm gran abs 0.01 0.00 - 0.10 K/cumm [facility] Comment:Testing performed by : [address] [address] Lymphocyte abs 0.52(L) 0.80 - 3.30 K/cumm [facility] Comment:Testing performed by : [address] [address] Monocyte abs 0.60 0.20 - 0.80 K/cumm [facility] Comment:Testing performed by : [address] [address] Eosinophil abs 0.40 0.00 - 0.50 K/cumm [facility] Comment:Testing performed by : [address] [address] Basophil abs 0.04 0.00 - 0.10 K/cumm [facility] Comment:Testing performed by : [address] [address] Neutrophil pct 69.7 % [facility] Comment: Interpretive Data Percent cell count reference ranges are not reported, since discordance with absolute values may lead to misinterpretation of CBC data. Current Interpretive Data was last revised on 2018. Testing performed by: [address] [address] Imm gran pct 0.2 % [facility] Comment: Interpretive Data Percent cell count reference ranges are not reported, since discordance with absolute values may lead to misinterpretation of CBC data. Current Interpretive Data was last revised on 2018. Testing performed by: [address] [address] Lymphocyte pct 10.0 % [facility] Comment: Interpretive Data Percent cell count reference ranges are not reported, since discordance with absolute values may lead to misinterpretation of CBC data. Current Interpretive Data was last revised on 2018. Testing performed by: [address] [address] Monocyte pct 11.6 % [facility] Comment: Interpretive Data Percent cell count reference ranges are not reported, since discordance with absolute values may lead to misinterpretation of CBC data. Current Interpretive Data was last revised on 2018. Testing performed by: [address] [address] Eosinophil pct 7.7 % [facility] Comment: Interpretive Data Percent cell count reference ranges are not reported, since discordance with absolute values may lead to misinterpretation of CBC data. Current Interpretive Data was last revised on 2018. Testing performed by: [address] [address] Basophil pct 0.8 % [facility] Comment: Interpretive Data Percent cell count reference ranges are not reported, since discordance with absolute values may lead to misinterpretation of CBC data. Current Interpretive Data was last revised on 2018. Testing performed by: [address] [address] Blood 02/27/2025 5:32 AM CDT 02/27/2025 8:24 AM CDT us Notinfile Unknown LAB BLOOD ORDERABLES Final Res ult [facility] 5604 [facility] Department [place] [address] * (ABNORMAL) CBC with auto differential (02/27/2025 5:32 AM CDT) WBC 5.19 3.80 - 9.90 K/cumm [facility] Comment:Testing performed by : [address] [address] Hgb 7.6(L) 11.9 - 15.5 g/dL [facility] Comment:Testing performed by : [address] [address] Hct 23.8(L) 35.6 - 45.5 % [facility] Comment:Testing performed by : [address] [address] Plt 164 150 - 400 K/cumm [facility] Comment:Testing performed by : [address] [address] MPV 12.0 9.1 - 12.3 fL [facility] Comment:Testing performed by : [address] [address] RBC 2.40(L) 3.90 - 5.20 M/cumm [facility] Comment:Testing performed by : [address] [address] MCV 99.2(H) 81.3 - 96.4 fL [facility] Comment:Testing performed by : [address] [address] MCH 31.7 27.1 - 33.3 pg [facility] Comment:Testing performed by : [address] [address] MCHC 31.9(L) 32.3 - 35.7 g/dL [facility] Comment:Testing performed by : [address] [address] RDW CV 16.6(H) 11.1 - 14.9 % [facility] Comment:Testing performed by : [address] [address] RDW SD 60.8(H) 35.7 - 48.1 fL [facility] Comment:Testing performed by : [address] [address] NRBC abs 0.00 0.00 - 0.01 K/cumm [facility] Comment:Testing performed by : [address] [address] Blood 02/27/2025 5:32 AM CDT 02/27/2025 8:24 AM CDT us Notinfile Unknown LAB BLOOD ORDERABLES Final Res ult [facility] 4500 [facility] Department [place] [address] * (ABNORMAL) Comprehensive metabolic panel (02/27/2025 5:32 AM CDT) Sodium 136 135 - 145 mmol/L [facility] Comment:Testing performed by : [address] [address] Potassium, pl 4.2 3.3 - 4.9 mmol/L [facility] Comment:Testing performed by : [address] [address] Chloride 96(L) 97 - 110 mmol/L [facility] Comment:Testing performed by : [address] [address] CO2 27 22 - 32 mmol/L [facility] Comment:Testing performed by : [address] [address] Anion gap 13 2 - 15 mmol/L [facility] Comment:Testing performed by : [address] [place]., [address] BUN 28(H) 6 - 25 mg/dL [facility] Comment:Testing performed by : [address] [address] Creatinine 1.50(H) 0.60 - 1.10 mg/dL [facility] Comment:Testing performed by : [address] [address] Glucose 103 70 - 199 mg/dL [facility] [...] was last revised 2022. Testing performed by: [address] [address] Calcium 9.8 8.5 - 10.3 mg/dL [facility] Comment:Testing performed by : [address] [address] Bilirubin, total 1.4(H) 0.1 - 1.2 mg/dL [facility] Comment:Testing performed by : [address] [address] Protein, pl 6.6 6.5 - 8.5 g/dL [facility] Comment:Testing performed by : [address] [address] Albumin 4.0 3.5 - 5.0 g/dL [facility] Comment:Testing performed by : [address] [address] Alk phos 404(H) 40 - 130 Units/L [facility] Comment:Testing performed by : [address] [address] ALT 21 7 - 45 Units/L [facility] Comment:Testing performed by : [address] [address] AST 40 10 - 45 Units/L [facility] Comment:Testing performed by : [facility], [address] [place] [address]., [address] Blood 02/27/2025 5:32 AM CDT 02/27/2025 8:24 AM CDT us Notinfile Unknown LAB BLOOD ORDERABLES Final Res ult Performing Organization Address [facility] Co de Phone Number [place] [id number] [facility] [place] [address] * (ABNORMAL) eGFR (02/25/2025 6:12 AM CDT) eGFR 38(L) >=60 mL/min/1. 73 m2 [facility] Comment: Interpretive [...] was last reviewed 2021. Testing performed by: [facility], [address] [place] [address]., [address] Blood 02/25/2025 6:12 AM CDT 02/25/2025 8:22 AM CDT us Notinfile Unknown LAB BLOOD ORDERABLES Final Res ult Performing Organization Address City/[facility]/ZIP Co de Phone Number [address] [place] [address] * (ABNORMAL) Basic metabolic panel (02/25/2025 6:12 AM CDT) Sodium 136 135 - 145 mmol/L [facility] Comment:Testing performed by : [address] [address] Potassium, pl 4.0 3.3 - 4.9 mmol/L [facility] Comment:Testing performed by : [address] [address] Chloride 97 97 - 110 mmol/L [facility] Comment:Testing performed by : [address] [address] CO2 27 22 - 32 mmol/L [facility] Comment:Testing performed by : [address] [address] Anion gap 12 2 - 15 mmol/L [facility] Comment:Testing performed by : [address] [address] BUN 26(H) 6 - 25 mg/dL [facility] Comment:Testing performed by : [address] [address] Creatinine 1.46(H) 0.60 - 1.10 mg/dL [facility] Comment:Testing performed by : [address] [address] Glucose 97 70 - 199 mg/dL [facility] [...] was last revised 2022. Testing performed by: [address] [address] Calcium 9.9 8.5 - 10.3 mg/dL [facility] Comment:Testing performed by : [address], [place]., [address] Blood 02/25/2025 6:12 AM CDT 02/25/2025 8:22 AM CDT us Notinfile Unknown LAB BLOOD ORDERABLES Final Res ult Performing Organization Address [facility] de Phone Number [facility] [address] [employer] [place] [address] * (ABNORMAL) eGFR (02/24/2025 6:10 AM CDT) [...] was last reviewed 2021. Testing performed by: [facility], [address] [place] [address]., [address] Blood 02/24/2025 6:10 AM CDT 02/24/2025 8:16 AM CDT us Notinfile Unknown LAB BLOOD ORDERABLES Final Res ult Performing Organization Address [facility] Co de Phone Number [facility] [place] [address] * (ABNORMAL) Differential, auto (02/24/2025 6:10 AM CDT) Pathologist [facility] Neutrophil abs 2.57 1.50 - 6.50 K/cumm [facility] Comment:Testing performed by : [address] [address] Imm gran abs 0.01 0.00 - 0.10 K/cumm [facility] Comment:Testing performed by : [address] [address] Lymphocyte abs 0.73(L) 0.80 - 3.30 K/cumm [facility] Comment:Testing performed by : [address] [address] Monocyte abs 0.50 0.20 - 0.80 K/cumm [facility] Comment:Testing performed by : [address] [address] Eosinophil abs 0.38 0.00 - 0.50 K/cumm [facility] Comment:Testing performed by : [address] [address] Basophil abs 0.02 0.00 - 0.10 K/cumm [facility] Comment:Testing performed by : [address] [address] Neutrophil pct 61.1 % [facility] Comment: Interpretive Data Percent cell count reference ranges are not reported, since discordance with absolute values may lead to misinterpretation of CBC data. Current Interpretive Data was last revised on 2018. Testing performed by: [address] [address] Imm gran pct 0.2 % [facility] Comment: Interpretive Data Percent cell count reference ranges are not reported, since discordance with absolute values may lead to misinterpretation of CBC data. Current Interpretive Data was last revised on 2018. Testing performed by: [address] [address] Lymphocyte pct 17.3 % [facility] Comment: Interpretive Data Percent cell count reference ranges are not reported, since discordance with absolute values may lead to misinterpretation of CBC data. Current Interpretive Data was last revised on 2018. Testing performed by: [address] [address] Monocyte pct 11.9 % [facility] Comment: Interpretive Data Percent cell count reference ranges are not reported, since discordance with absolute values may lead to misinterpretation of CBC data. Current Interpretive Data was last revised on 2018. Testing performed by: [address] [address] Eosinophil pct 9.0 % [facility] Comment: Interpretive Data Percent cell count reference ranges are not reported, since discordance with absolute values may lead to misinterpretation of CBC data. Current Interpretive Data was last revised on 2018. Testing performed by: [address] [address] Basophil pct 0.5 % [facility] Comment: Interpretive Data Percent cell count reference ranges are not reported, since discordance with absolute values may lead to misinterpretation of CBC data. Current Interpretive Data was last revised on 2018. Testing performed by: [address] [address] Blood 02/24/2025 6:10 AM CDT 02/24/2025 8:16 AM CDT us Notinfile Unknown LAB BLOOD ORDERABLES Final Res ult [facility] 7224 [facility] Department [place] [address] * (ABNORMAL) CBC with auto differential (02/24/2025 6:10 AM CDT) WBC 4.21 3.80 - 9.90 K/cumm [facility] Comment:Testing performed by : [address] [address] Hgb 7.7(L) 11.9 - 15.5 g/dL [facility] Comment:Testing performed by : [address] [address] Hct 24.8(L) 35.6 - 45.5 % [facility] Comment:Testing performed by : [address] [address] Plt 211 150 - 400 K/cumm [facility] Comment:Testing performed by : [address] [address] MPV 11.8 9.1 - 12.3 fL [facility] Comment:Testing performed by : [address] [address] RBC 2.47(L) 3.90 - 5.20 M/cumm [facility] Comment:Testing performed by : [address] [address] MCV 100.4(H) 81.3 - 96.4 fL [facility] Comment:Testing performed by : [address], [address] MCH 31.2 27.1 - 33.3 pg [facility] Comment:Testing performed by : [address] [address] MCHC 31.0(L) 32.3 - 35.7 g/dL [facility] Comment:Testing performed by : [address], [address] RDW CV 16.9(H) 11.1 - 14.9 % [facility] Comment:Testing performed by : [address], [address] RDW SD 61.9(H) 35.7 - 48.1 fL [facility] Comment:Testing performed by : [address] [address] NRBC abs 0.00 0.00 - 0.01 K/cumm [facility] Comment:Testing performed by : [address], [address] Blood 02/24/2025 6:10 AM CDT 02/24/2025 8:16 AM CDT us Notinfile Unknown LAB BLOOD ORDERABLES Final Res ult [facility] 4652 [facility] Department [place] [address] * (ABNORMAL) Comprehensive metabolic panel (02/24/2025 6:10 AM CDT) Sodium 136 135 - 145 mmol/L [facility] Comment:Testing performed by : [address] [address] Potassium, pl 4.0 3.3 - 4.9 mmol/L [facility] Comment:Testing performed by : [address], [place]., [address] Chloride 97 97 - 110 mmol/L [facility] Comment:Testing performed by : [address], [place]., [address] CO2 28 22 - 32 mmol/L [facility] Comment:Testing performed by : [address], [place]., [address] Anion gap 11 2 - 15 mmol/L [facility] Comment:Testing performed by : [address], [place]., [address] BUN 26(H) 6 - 25 mg/dL [facility] Comment:Testing performed by : [address], [place]., [address] Creatinine 1.64(H) 0.60 - 1.10 mg/dL [facility] Comment:Testing performed by : [address] [address] Glucose 97 70 - 199 mg/dL [facility] Comment: Interpretive Data Fasting glucose [...] was last revised 2022. Testing performed by: [address] [address] Calcium 9.7 8.5 - 10.3 mg/dL [facility] Comment:Testing performed by : [address], [place]., [address] Bilirubin, total 1.2 0.1 - 1.2 mg/dL [facility] Comment:Testing performed by : [address] [address] Protein, pl 6.7 6.5 - 8.5 g/dL [facility] Comment:Testing performed by : [address] [address] Albumin 4.2 3.5 - 5.0 g/dL [facility] Comment:Testing performed by : [address] [address] Alk phos 393(H) 40 - 130 Units/L [facility] Comment:Testing performed by : [address] [address] ALT 19 7 - 45 Units/L [facility] Comment:Testing performed by : [address] [address] AST 42 10 - 45 Units/L [facility] Comment:Testing performed by : [address] [address] Blood 02/24/2025 6:10 AM CDT 02/24/2025 8:16 AM CDT us Notinfile Unknown LAB BLOOD ORDERABLES Final Res ult [facility] 4796 [facility] Department [place] [address] * (ABNORMAL) eGFR (02/22/2025 5:20 AM CDT) [...] was last reviewed 2021. Testing performed by: [address] [address] Blood 02/22/2025 5:20 AM CDT 02/22/2025 8:27 AM CDT us Notinfile Unknown LAB BLOOD ORDERABLES Final Res ult [facility] Department [place] [address] * (ABNORMAL) Basic metabolic panel (02/22/2025 5:20 AM CDT) Sodium 137 135 - 145 mmol/L [facility] Comment:Testing performed by : [address] [address] Potassium, pl 4.0 3.3 - 4.9 mmol/L [facility] Comment:Testing performed by : [address] [address] Chloride 98 97 - 110 mmol/L [facility] Comment:Testing performed by : [address] [address] CO2 29 22 - 32 mmol/L [facility] Comment:Testing performed by : [address] [address] Anion gap 10 2 - 15 mmol/L [facility] Comment:Testing performed by : [address] [address] BUN 26(H) 6 - 25 mg/dL [facility] Comment:Testing performed by : [address] [address] Creatinine 1.42(H) 0.60 - 1.10 mg/dL [facility] Comment:Testing performed by : [address] [address] Glucose 108 70 - 199 mg/dL [facility] [...] was last revised 2022. Testing performed by: [facility], [address] [place] [address]., [address] Calcium 9.8 8.5 - 10.3 mg/dL [facility] Comment:Testing performed by : [facility], [address] [place] [address]., [address] Blood 02/22/2025 5:20 AM CDT 02/22/2025 8:27 AM CDT us Notinfile Unknown LAB BLOOD ORDERABLES Final Res ult [facility] [place] 9667 [facility] Department [place] [address] * (ABNORMAL) eGFR (02/21/2025 6:04 AM CDT) [...] was last reviewed 2021. Testing performed by: [address] [address] Blood 02/21/2025 6:04 AM CDT 02/21/2025 8:58 AM CDT us Notinfile Unknown LAB BLOOD ORDERABLES Final Res ult [facility] 4505 [facility] Department [place] [address] * (ABNORMAL) Differential, auto (02/21/2025 6:04 AM CDT) Neutrophil abs 2.28 1.50 - 6.50 K/cumm [facility] Comment:Testing performed by : [address] [address] Imm gran abs 0.02 0.00 - 0.10 K/cumm [facility] Comment:Testing performed by : [address] [address] Lymphocyte abs 0.78(L) 0.80 - 3.30 K/cumm [facility] Comment:Testing performed by : [address] [address] Monocyte abs 0.45 0.20 - 0.80 K/cumm [facility] Comment:Testing performed by : [address] [address] Eosinophil abs 0.51(H) 0.00 - 0.50 K/cumm [facility] Comment:Testing performed by : [address] [address] Basophil abs 0.04 0.00 - 0.10 K/cumm [facility] Comment:Testing performed by : [address] [address] Neutrophil pct 55.9 % [facility] Comment: Interpretive Data Percent cell count reference ranges are not reported, since discordance with absolute values may lead to misinterpretation of CBC data. Current Interpretive Data was last revised on 2018. Testing performed by: [address] [address] Imm gran pct 0.5 % [facility] Comment: Interpretive Data Percent cell count reference ranges are not reported, since discordance with absolute values may lead to misinterpretation of CBC data. Current Interpretive Data was last revised on 2018. Testing performed by: [address] [address] Lymphocyte pct 19.1 % [facility] Comment: Interpretive Data Percent cell count reference ranges are not reported, since discordance with absolute values may lead to misinterpretation of CBC data. Current Interpretive Data was last revised on 2018. Testing performed by: [address] [address] Monocyte pct 11.0 % [facility] Comment: Interpretive Data Percent cell count reference ranges are not reported, since discordance with absolute values may lead to misinterpretation of CBC data. Current Interpretive Data was last revised on 2018. Testing performed by: [address] [address] Eosinophil pct 12.5 % [facility] Comment: Interpretive Data Percent cell count reference ranges are not reported, since discordance with absolute values may lead to misinterpretation of CBC data. Current Interpretive Data was last revised on 2018. Testing performed by: [address] [address] Basophil pct 1.0 % [facility] Comment: Interpretive Data Percent cell count reference ranges are not reported, since discordance with absolute values may lead to misinterpretation of CBC data. Current Interpretive Data was last revised on 2018. Testing performed by: [address] [address] Blood 02/21/2025 6:04 AM CDT 02/21/2025 8:58 AM CDT us Notinfile Unknown LAB BLOOD ORDERABLES Final Res ult [facility] 9382 [facility] Department [place] [address] * (ABNORMAL) CBC with auto differential (02/21/2025 6:04 AM CDT) WBC 4.08 3.80 - 9.90 K/cumm [facility] Comment:Testing performed by : [address] [address] Hgb 8.1(L) 11.9 - 15.5 g/dL [facility] Comment:Testing performed by : [address] [address] Hct 25.5(L) 35.6 - 45.5 % [facility] Comment:Testing performed by : [address] [address] Plt 226 150 - 400 K/cumm [facility] Comment:Testing performed by : [address] [address] MPV 12.2 9.1 - 12.3 fL [facility] Comment:Testing performed by : [address] [address] RBC 2.50(L) 3.90 - 5.20 M/cumm [facility] Comment:Testing performed by : [address] [address] MCV 102.0(H) 81.3 - 96.4 fL [facility] Comment:Testing performed by : [address] [address] MCH 32.4 27.1 - 33.3 pg [facility] Comment:Testing performed by : [address] [address] MCHC 31.8(L) 32.3 - 35.7 g/dL DAYANA Comment:Testing performed by : [address] [address] RDW CV 17.2(H) 11.1 - 14.9 % DAYANA Comment:Testing performed by : [address] [address] RDW SD 63.7(H) 35.7 - 48.1 fL DAYANA CARPIO Comment:Testing performed by : [address] [address] NRBC abs 0.00 0.00 - 0.01 K/cumm DAYANA CARPIO Comment:Testing performed by : [address] [address] Blood 02/21/2025 6:04 AM CDT 02/21/2025 8:58 AM CDT us Notinfile Unknown LAB BLOOD ORDERABLES Final Res ult DAYANA [address] [facility] Department [place] [address] * (ABNORMAL) Comprehensive metabolic panel (02/21/2025 6:04 AM CDT) Sodium 139 135 - 145 mmol/L DAYANA Comment:Testing performed by : [address] [address] Potassium, pl 3.8 3.3 - 4.9 mmol/L DAYANA Comment:Testing performed by : [address] [address] Chloride 96(L) 97 - 110 mmol/L DAYANA Comment:Testing performed by : [address] [address] CO2 28 22 - 32 mmol/L DAYANA Comment:Testing performed by : [address] [address] Anion gap 15 2 - 15 mmol/L DAYANA Comment:Testing performed by : [address] [address] BUN 27(H) 6 - 25 mg/dL DAYANA Comment:Testing performed by : [address] [address] Creatinine 1.43(H) 0.60 - 1.10 mg/dL DYAANA Comment:Testing performed by : [address] [address] Glucose 88 70 - 199 mg/dL DAYANA [...] was last revised 2022. Testing performed by: [address] [address] Calcium 10.0 8.5 - 10.3 mg/dL DAYANA Comment:Testing performed by : [address] [address] Bilirubin, total 1.3(H) 0.1 - 1.2 mg/dL DAYANA Comment:Testing performed by : [address] [address] Protein, pl 7.0 6.5 - 8.5 g/dL DAYANA Comment:Testing performed by : [address] [address] Albumin 4.3 3.5 - 5.0 g/dL DAYANA Comment:Testing performed by : [address] [address] Alk phos 322(H) 40 - 130 Units/L DAYANA Comment:Testing performed by : [address] [address] ALT 13 7 - 45 Units/L DAYANA Comment:Testing performed by : [address] [address] AST 31 10 - 45 Units/L DAYANA Comment:Testing performed by : [address] [address] Blood 02/21/2025 6:04 AM CDT 02/21/2025 8:58 AM CDT us Notinfile Unknown LAB BLOOD ORDERABLES Final Res ult Performing Organization Address City/State/[facility] Co de Phone Number [facility] [address] [facility] [place] [address] * (ABNORMAL) eGFR (02/19/2025 5:40 AM CDT) [...] was last reviewed 2021. Testing performed by: [address] [address] Blood 02/19/2025 5:40 AM CDT 02/19/2025 8:19 AM CDT us Notinfile Unknown LAB BLOOD ORDERABLES Final Res ult Performing Organization Address [facility] Co de Phone Number [facility] [address] [facility] Department [place] [address] * (ABNORMAL) Differential, auto (02/19/2025 5:40 AM CDT) Neutrophil abs 2.76 1.50 - 6.50 K/cumm DAYANA Comment:Testing performed by : [address] [address] Imm gran abs 0.02 0.00 - 0.10 K/cumm DAYANA Comment:Testing performed by : [address], [place]., [address] Lymphocyte abs 0.73(L) 0.80 - 3.30 K/cumm DAYANA Comment:Testing performed by : [address], [place]., [address] Monocyte abs 0.51 0.20 - 0.80 K/cumm DAYANA Comment:Testing performed by : [address], [place]., [address] Eosinophil abs 0.67(H) 0.00 - 0.50 K/cumm DAYANA Comment:Testing performed by : [address], [place]., [address] Basophil abs 0.04 0.00 - 0.10 K/cumm DAYANA Comment:Testing performed by : [address] [address] Neutrophil pct 58.4 % [facility] Comment: Interpretive Data Percent cell count reference ranges are not reported, since discordance with absolute values may lead to misinterpretation of CBC data. Current Interpretive Data was last revised on 2018. Testing performed by: [address] [address] Imm gran pct 0.4 % [facility] Comment: Interpretive Data Percent cell count reference ranges are not reported, since discordance with absolute values may lead to misinterpretation of CBC data. Current Interpretive Data was last revised on 2018. Testing performed by: [address] [address] Lymphocyte pct 15.4 % [facility] Comment: Interpretive Data Percent cell count reference ranges are not reported, since discordance with absolute values may lead to misinterpretation of CBC data. Current Interpretive Data was last revised on 2018. Testing performed by: [address] [address] Monocyte pct 10.8 % [facility] Comment: Interpretive Data Percent cell count reference ranges are not reported, since discordance with absolute values may lead to misinterpretation of CBC data. Current Interpretive Data was last revised on 2018. Testing performed by: [address] [address] Eosinophil pct 14.2 % DAYANA Comment: Interpretive Data Percent cell count reference ranges are not reported, since discordance with absolute values may lead to misinterpretation of CBC data. Current Interpretive Data was last revised on 2018. Testing performed by: [address] [address] Basophil pct 0.8 % DAYANA Comment: Interpretive Data Percent cell count reference ranges are not reported, since discordance with absolute values may lead to misinterpretation of CBC data. Current Interpretive Data was last revised on 2018. Testing performed by: [address] [address] Blood 02/19/2025 5:40 AM CDT 02/19/2025 8:19 AM CDT us Notinfile Unknown LAB BLOOD ORDERABLES Final Res ult DAYANA [address] [facility] Department [place] [address] * (ABNORMAL) CBC with auto differential (02/19/2025 5:40 AM CDT) WBC 4.73 3.80 - 9.90 K/cumm DAYANA CARPIO Comment:Testing performed by : [address] [address] Hgb 7.5(L) 11.9 - 15.5 g/dL DAYANA CARPIO Comment:Testing performed by : [address] [address] Hct 24.5(L) 35.6 - 45.5 % DAYANA Comment:Testing performed by : [address] [address] Plt 215 150 - 400 K/cumm DAYANA CARPIO Comment:Testing performed by : [address] [address] MPV 12.2 9.1 - 12.3 fL DAYANA CARPIO Comment:Testing performed by : [address] [address] RBC 2.42(L) 3.90 - 5.20 M/cumm DAYANA CARPIO Comment:Testing performed by : [address] [address] MCV 101.2(H) 81.3 - 96.4 fL DAYANA CARPIO Comment:Testing performed by : [address] [address] MCH 31.0 27.1 - 33.3 pg DAYANA CARPIO Comment:Testing performed by : [address] [address] MCHC 30.6(L) 32.3 - 35.7 g/dL DAYANA Comment:Testing performed by : [address] [address] RDW CV 17.1(H) 11.1 - 14.9 % DAYANA Comment:Testing performed by : [address] [address] RDW SD 62.5(H) 35.7 - 48.1 fL DAYANA Comment:Testing performed by : [address] [address] NRBC abs 0.00 0.00 - 0.01 K/cumm DAYANA Comment:Testing performed by : [address] [address] Blood 02/19/2025 5:40 AM CDT 02/19/2025 8:19 AM CDT us Notinfile Unknown LAB BLOOD ORDERABLES Final Res ult DAYANA [address] [facility] Department of Laboratories [place], [place] [id number] * (ABNORMAL) Comprehensive metabolic panel (02/19/2025 5:40 AM CDT) Sodium 136 135 - 145 mmol/L DAYANA CARPIO Comment:Testing performed by : [address] [address] Potassium, pl 3.8 3.3 - 4.9 mmol/L DAYANA CARPIO Comment:Testing performed by : [address] [address] Chloride 97 97 - 110 mmol/L DAYANA Comment:Testing performed by : [address], [place]., [address] CO2 27 22 - 32 mmol/L CER[facility]KOS Comment:Testing performed by : [address], [place]., [address] Anion gap 12 2 - 15 mmol/L DAYANA Comment:Testing performed by : [address], [place]., [address] BUN 26(H) 6 - 25 mg/dL [facility] Comment:Testing performed by : [address], [place]., [address] Creatinine 1.33(H) 0.60 - 1.10 mg/dL DAYANA Comment:Testing performed by : [address], [place]., [address] Glucose 139 70 - 199 mg/dL [facility] Comment: Interpretive Data Fasting glucose [...] was last revised 2022. Testing performed by: [address] [address] Calcium 9.8 8.5 - 10.3 mg/dL [facility] Comment:Testing performed by : [address] [address] Bilirubin, total 1.3(H) 0.1 - 1.2 mg/dL DAYANA Comment:Testing performed by : [address], [place]., [address] Protein, pl 6.5 6.5 - 8.5 g/dL DAYANA Comment:Testing performed by : [address] [address] Albumin 4.1 3.5 - 5.0 g/dL DAYANA Comment:Testing performed by : [address] [address] Alk phos 300(H) 40 - 130 Units/L DAYANA Comment:Testing performed by : [address] [address] ALT 11 7 - 45 Units/L DAYANA Comment:Testing performed by : [address] [address] AST 26 10 - 45 Units/L DAYANA Comment:Testing performed by : [address] [address] Blood 02/19/2025 5:40 AM CDT 02/19/2025 8:19 AM CDT us Notinfile Unknown LAB BLOOD ORDERABLES Final Res ult Performing Organization Address City/State/[facility] Co de Phone Number DAYANA [address] [facility] Department [place] [address] * XR Tibia Fibula Left 2 View [...] Stewart Greene M.D. RB: BECKI Report ID: [id number] Reading Location: [id number] Procedure Note Stewart Greene MD - 12/30/2024 [...] Stewart Greene M.D. RB: BECKI Report ID: [id number] Reading Location: [id number] Samara MEDEIROS IMG XR PROCEDURES Final Result * Hemoglobin A1c (11/16/2024 9:56 AM PROPERTY UTILIZATION OFFICER) [facility] Hgb A1C 5.4 4.0 - 5.6 % Comment:Testing performed by : [facility], [address] [place] [address], [place]., [address] Estimated Average Glucose 108 mg/dL DAYANA CARPIO Comment: The ADA recommends reporting an estimated Average Glucose (eAG) with all Hemoglobin A1c results using the equation derived from a study of 507 normal and diabetic adults. Minority populations were underrepresented and children were not included. (Diabetes Care 31:5886-6824, 2008). The eAG is not equivalent to a fasting glucose. Testing performed by: [facility], [address] [place] [address], [place]., [address] Blood 11/16/2024 9:56 AM PROPERTY UTILIZATION OFFICER 11/16/2024 10:29 AM PROPERTY UTILIZATION OFFICER us Ivan Fairchild MD LAB BLOOD ORDERABLES Final Re sult DAYANA [address] [facility] Department [place] [address] * POCT lipid panel (11/15/2023 2:47 PM PROPERTY UTILIZATION OFFICER) Cholesterol, POC 146 mg/dL Comment:GLU = 90 HDL, POC 58 mg/dL Triglycerides, POC 87 mg/dL LDL Cholesterol POC 70 mg/dL Chol/HDL Ratio, POC 1.2 Non-HDL Cholesterol, POC 88 mg/dL Cholesterol Total, POC 146 mg/dL Capillary blood 11/15/2023 2 :47 PM PROPERTY UTILIZATION OFFICER Bridget Nicholson NP POINT OF CARE TEST ORDERABLE S Final Result from Last 3 Months or Most Recently Relevant to Health Maintenance Additional Health Concerns Infection Onset Date Last Indicated C. difficile Comment:FROM OSH 02/04/2025 02/04/2025 Insurance MEDICARE [employer] SENIOR SUPPLEMENT Advance Directives For more information, please contact: [phone] Documents on File Type Date Recorded Patient Process Engineering Intern Expl anation ADVANCE DIRECTIVE 11/13/2024 3:42 PM Power of Rn [facility] * Full Code (Latest Code Status on File) Date Activated Date Inactivated Comments 11/12/2024 2:31 AM 11/20/2024 10:35 PM Care Teams Dry Cleaning Counter Clerk Relationship Specialty Start Date End Date Ghanshyam Ruiz NP [address] [place] [address] PCP - General Nurse Practitioner 09/03/24 Augustus Birch MD [address] [facility] [address] [place] [address] Internal Medicine 04/17/19
== END 2025-03-25 11:23 | disposition home or self-care (01) ==
LOC: ANHLAB 11:23
PROVIDERS: PCP Nurse Practitioner; Referring Provider Nurse Practitioner; Visit Provider Internal Medicine Nephrology
DX: R60.1 Generalized edema (principal); I12.9 Hypertensive chronic kidney disease with stage 1 through stage 4 chronic kidney disease, or unspecified chronic kidney disease; E11.22 Type 2 diabetes mellitus with diabetic chronic kidney disease; N18.32 Chronic kidney disease, stage 3b; E55.9 Vitamin D deficiency, unspecified; N25.81 Secondary hyperparathyroidism of renal origin; E78.5 Hyperlipidemia, unspecified; E83.42 Hypomagnesemia
CPT/HCPCS: 36415; 80053; 80061; 82306; 82570; 83036; 83735; 83970; 84100; 84156

== ENCOUNTER 2025-04-14 09:05 | Outpatient (CLI) | payer MEDICARE, SELFPAY ==
--- NOTE | ~2025-04-14 | US_ITS ---
COMPLETE ABDOMINAL ULTRASOUND Ordering provider: Erasto Weaver MD History: . cirrhosis - r/o HCC . Comparison: None. FINDINGS: LIVER: Lobulated surface. Normal size and heterogeneous echotexture. No focal hepatic lesions or xi hepatic fluid collections are identified. GALLBLADDER: Cholelithiasis with small stones. No evidence for sludge, gallbladder wall thickening or pericholecystic fluid collections. the wall thickness is 2.9 mm. A negative sonographic Aragon's sig n was noted. BILIARY DUCTS: No evidence for intra or extrahepatic biliary dilation. Common bile duct measures 4.9 mm in diameter which is within normal limits. PANCREAS: Normal echotexture and size of the visualized portion. SPLEEN: Normal size, echotexture and contour and measures 13.1 cm in length. KIDNEYS: Right measures 10.3x 5.1x 5.8 cm in length and the left 10.7x 5.8x 6.8 cm in length. There i s no evidence for hydronephrosis, solid renal mass, renal calculi or perinephric fluid collections. N o renal cysts. UPPER ABDOMINAL AORTA: Normal in caliber. Mid aorta measures 1.3 cm. IVC: Patent. FREE FLUID: Minimal free fluid adjacent to the liver. Right pleural effusion. IMPRESSION: Cholelithiasis. Liver cirrhosis. Minimal free fluid around the liver. Highly suggestive right pleural effusion. Reviewed, dictated and finalized at location A.
== END 2025-04-14 09:06 | disposition home or self-care (01) ==
PROVIDERS: PCP Nurse Practitioner; Visit Provider Internal Medicine Gastroenterology
DX: K80.20 Calculus of gallbladder without cholecystitis without obstruction (principal); K70.31 Alcoholic cirrhosis of liver with ascites
CPT/HCPCS: 76700

== ENCOUNTER 2025-05-04 10:15 | Inpatient (IN) | payer MEDICARE, SELFPAY ==
--- NOTE | ~2025-05-04 | CT_ITS ---
History: Diplopia PROCEDURE: CT head without contrast. COMPARISON: 10/31/2024 TECHNIQUE: Axial imaging of the head performed from the skull base to the vertex without IV contrast. Sagittal a nd coronal reformations obtained. DLP: 605 mGy-cm FINDINGS: The ventricles are enlarged. The dilatation of the ventricles is proportional to the degree of sulcal prominence, not uncommon in the senescent brain. Decreased attenuation is identified within the periventricular white matter, likely secondary to micr ovascular ischemic disease, in a patient of this age. There is no mass, mass effect or midline shift. There is no abnormal extra-axial fluid collection or intracranial hemorrhage. Visualized paranasal sinuses are clear. The mastoid air cells are well aerated. No acute displaced fractures within the overlying cranium. Densely calcified atherosclerotic disease is identified. Impression: No acute intracranial hemorrhage or suspicious mass effect. Reviewed, dictated and finalized at location A. Impression: No acute intracranial hemorrhage or suspicious mass effect.
--- NOTE | ~2025-05-04 | XR_ITS ---
EXAM: XR sacrum coccyx min 2V DATE: 05/11/2025 14:48 HISTORY: evaluate for acute osteomyelitis . COMPARISON: CT abdomen pelvis 05/06/2025. FINDINGS: Osteopenia. Partially visualized right hip arthroplasty hardware. Lumbar degenerative disc disease. Moderate height loss at L5. No definite fracture or dislocation. No definite erosion or alexandre dence of periosteal change. Significant rotation in the lateral view which limits evaluation. IMPRESSION: Exam limited by rotation in the lateral view and osteopenia. No definite fracture or eros ion to suggest osteomyelitis. If clinical suspicion is high recommend CT of the pelvis with contrast for further evaluation. Reviewed, dictated and finalized at location K. IMPRESSION: Exam limited by rotation in the lateral view and osteopenia. No def inite fracture or erosion to suggest osteomyelitis. If clinical suspicion is hi gh recommend CT of the pelvis with contrast for further evaluation.
--- NOTE | ~2025-05-04 | XR_ITS ---
EXAM: XR abdomen/kub 1V DATE: 05/06/2025 19:46 HISTORY: LLQ pain . COMPARISON: None available. FINDINGS: Small right pleural effusion. Pericardial calcification. Mild gastric wall/fold thickening . Mild small bowel wall thickening Otherwise normal bowel gas pattern. No organomegaly. No abnormal a bdominal calcification. Osteopenia. Urinary collection device. EKG wires are coiled over the right mi d and lower abdomen. Partially visualized uncomplicated appearing right hip arthroplasty hardware. IMPRESSION: Suggestion of gastric fold thickening as can be seen with gastritis or varices. Suggestio n of small bowel wall thickening, may reflect enteritis. Reviewed, dictated and finalized at location K. IMPRESSION: Suggestion of gastric fold thickening as can be seen with gastritis or varices. Suggestion of small bowel wall thickening, may reflect enteritis.
--- NOTE | ~2025-05-04 | CT_ITS ---
EXAMINATION: CT thoracic lumbar wo con DATE: 05/04/2025 13:38 INDICATION: back pain . TECHNIQUE: Computed tomography (CT) of the thoracic and lumbar spine was performed without intravenou s contrast. Automated exposure control and iterative reconstruction technique were employed. The dose -length product was 672.49 mGy-cm. COMPARISON: X-ray chest 02/04/2025; CT cap 01/27/2025 and 10/21/2024 FINDINGS: THORACIC SPINE: Osteopenia. Vertebral body alignment intact. Mild height loss at T9, T10, and T12, new since the comp [facility] study. Stable superior endplate deformity at T4. Multilevel mild and moderate degrees of thora cic spine degenerative disc disease. Mild multilevel facet arthropathy. No severe central canal or ne ural foraminal narrowing. No traumatic malalignment or fracture. Dilated central pulmonary arteries a s can be seen with pulmonary arterial hypertension. Mitral aortic valve, and coronary artery calcific ations. Atherosclerotic calcifications. Small right pleural effusion. 5 mm right upper lobe groundgla ss nodule. 1.5 cm mixed solid and groundglass nodule in the right upper lobe. Pericardial calcificati on. Cirrhosis. LUMBAR SPINE: Osteopenia. 5 nonrib-bearing lumbar-type vertebral bodies. Pedicles intact. Trace anterolisthesis L3- 4. Mild grade 1 anterolisthesis at L4-5. Both listheses are stable. Multilevel mild and moderate degr ees of vertebral body height loss, unchanged. Severe multilevel degenerative disc disease and lower l umbar facet arthropathy. No severe neural foraminal narrowing. Severe central canal narrowing at L4-5 secondary to degenerative changes. Atherosclerotic calcifications. Partially visualized right hip ar throplasty hardware. IMPRESSION: Small right pleural effusion. Acute/subacute mild compression fractures at T9, T10, and T12. 5 mm groundglass and 15 mm mixed groundglass/solid right upper lobe pulmonary nodules that have incre ased in size slightly since the October comparison CT. Recommend biopsy or PET/CT. No acute fracture or traumatic malalignment detected in the lumbar spine. Reviewed, dictated and finalized at location K. IMPRESSION: Small right pleural effusion. Acute/subacute mild compression fractures at T9, T10, and T12. 5 mm groundglass and 15 mm mixed groundglass/solid right upper lobe pulmonary n odules that have increased in size slightly since the October comparison CT. Re commend biopsy or PET/CT. No acute fracture or traumatic malalignment detected in the lumbar spine.
--- NOTE | ~2025-05-04 | US_ITS ---
US arterial ankle brachial ind INDICATION: Weak pedal pulses. Skin changes. TECHNIQUE: Segmental pressures and plethysmographic and Doppler waveforms of the brachial and lower e xtremity arteries were obtained. COMPARISON: None. FINDINGS: Right and left brachial artery pressures of 119 mm Hg and 116 mm Hg, respectively, are concordant (no rmal difference <= 30 mmHg). The right ankle-brachial index (SONIA) is 0.92 (normal >= 0.9-1.0). The right great toe-brachial index (TBI) is 0.33 (normal >= 0.60). The left SONIA is 1.43. The left TBI is 0.45. IMPRESSION: 1. Diminished bilateral toe brachial indices consistent with peripheral arterial disease. Reviewed, dictated and finalized at location A. IMPRESSION: 1. Diminished bilateral toe brachial indices consistent with peripheral arteria l disease.
--- NOTE | ~2025-05-04 | XR_ITS ---
EXAM: XR heel RT min 2V DATE: 05/11/2025 14:48 HISTORY: evaluate for osteomyelitis . COMPARISON: None available. FINDINGS: Osteopenia. No fracture or dislocation. No lytic or blastic lesion. Mild scattered degener ative change with minimal Achilles and plantar enthesopathy. No erosion or periosteal change. Vascula r calcifications. IMPRESSION: No acute osseous finding in the right heel. Reviewed, dictated and finalized at location K.
--- NOTE | ~2025-05-04 | MR_ITS ---
EXAMINATION: MR brain/brain stem wo con DATE: 05/07/2025 12:37 INDICATION: Diplopia. Tremors. TECHNIQUE: Magnetic resonance imaging (MRI) of the brain and brainstem was performed without intraven ous contrast. In addition to the 3 plane axial, sagittal and coronal localizer images, a sagittal axi al T1-weighted SE sequence obtained. At this point the study was terminated at the patient's request prior to completion of the standard collection of sequences due to patient's back pain. COMPARISON: CT dated 05/06/2025 FINDINGS: Study significantly limited due to the absence of diffusion weighted, susceptibility weighted and T2- weighted images. This precludes assessment for acute infarction. There are no intraparenchymal signa l abnormalities seen on the T1-weighted images. Symmetric prominence of the sulci consistent with mil d age-appropriate diffuse cerebral volume loss. The ventricles are symmetric and normal in size. No a bnormal masses identified. No evident intracranial hemorrhage although evaluation is significantly li mited. Midline structures appear normal on the sagittal images.. IMPRESSION: 1. Severely limited study which was terminated prematurely at patient request due to back pain follow ing only the sagittal T1-weighted imaging. Unable to assess for either acute infarction or T2-weighte d signal changes and significantly decrease sensitivity for intracranial hemorrhage which was not obs erved. 2. Mild age-appropriate diffuse volume loss. Reviewed, dictated and finalized at location A. IMPRESSION: 1. Severely limited study which was terminated prematurely at patient request d ue to back pain following only the sagittal T1-weighted imaging. Unable to asse ss for either acute infarction or T2-weighted signal changes and significantly decrease sensitivity for intracranial hemorrhage which was not observed. 2. Mild age-appropriate diffuse volume loss.
--- NOTE | ~2025-05-04 | CT_ITS ---
EXAMINATION: CT abdomen pelvis wo con DATE: 05/06/2025 19:54 INDICATION: LLQ pain TECHNIQUE: Computed tomography (CT) of the abdomen and pelvis was performed without intravenous contr ast. Automated exposure control and iterative reconstruction technique were employed. The dose-length product was 421.25 mGy-cm. COMPARISON: CT cap 01/27/2025. FINDINGS: Lower thorax: Pericardial calcification, with mild pericardial fluid/thickening. Mitral calcification . Small right pleural fluid collection, with adjacent consolidation likely representing atelectasis. Small fat-containing right diaphragmatic hernia. Liver: The liver is small with a nodular border. Biliary/Gallbladder: Cholelithiasis. No inflammatory change. No bile duct dilation. Gallstone is note d in the distal common bile duct. Pancreas: No mass or duct dilation. Small calcifications. Spleen: Normal. Adrenals:No mass. Kidneys: No suspicious mass, obstructing stone, or hydronephrosis. Mild bilateral perinephric strandi ng. GI tract: Small hiatal hernia. Mild gastric distention. Prominent gastric folds. No small or large kris wel dilation. Scattered areas of mild small bowel wall thickening noted proximally. Short length segm ent colonic wall thickening in the mid transverse colon and proximal sigmoid colon. Large volume of c olonic fecal material. The rectum is dilated to 5.6 cm by formed stool. Normal appendix. Diverticulos is without diverticulitis. Mesentery/Peritoneum: No ascites, mass, or free air. Upper abdominal varices. Mild diffuse mesenteric edema. Retroperitoneum: No mass. Atherosclerotic calcifications of intra-abdominal arterial vessels. Pelvis: Distended urinary bladder. Absent uterus. Soft Tissues: Mild diffuse body wall edema Bones: Worsening mild-moderate height loss at T9-L1 and at L3. Partially visualized uncomplicated ap pearing right hip arthritis posterior hardware. IMPRESSION: Small volume pericardial fluid versus pericardial thickening. Small right pleural effusion with adjacent atelectasis. Infection not excluded. Moderate gastric distention with prominent folds and may represent gastric varices. Cirrhosis with portal hypertension. Mild gastric distention with prominent gastric folds that may represent gastric varices. Proximal small bowel wall thickening as can be seen with enteritis. Segmental wall thickening in the transverse and sigmoid colon, as can be seen with infectious, inflam matory, or ischemic colitis. Possible mild fecal impaction and constipation. Distended urinary bladder, correlate for urinary retention. Progressive mild-moderate multilevel compression fractures in the thoracic and lumbar spine. Reviewed, dictated and finalized at location K. IMPRESSION: Small volume pericardial fluid versus pericardial thickening. Small right pleural effusion with adjacent atelectasis. Infection not excluded. Moderate gastric distention with prominent folds and may represent gastric vari brooke. Cirrhosis with portal hypertension. Mild gastric distention with prominent gastric folds that may represent gastric varices. Proximal small bowel wall thickening as can be seen with enteritis. Segmental wall thickening in the transverse and sigmoid colon, as can be seen w ith infectious, inflammatory, or ischemic colitis. Possible mild fecal impaction and constipation. Distended urinary bladder, correlate for urinary retention. Progressive mild-moderate multilevel compression fractures in the thoracic and lumbar spine.
[2025-05-04 10:24] VITALS: BP 127/59; PULSE 96; RESP 20; TEMP 36.4; O2SAT 96
[2025-05-04 10:41] VITALS: BP 128/62; PULSE 85; RESP 17; O2SAT 98
--- NOTE | 2025-05-04 10:46 | ED.GENADULT ---
HPI - General Adult General Chief complaint: Back Pain/Injury Stated complaint: back pain Time Seen by Provider: 05/04/25 10:31 History of Present Illness HPI narrative: 70-year-old female presented to the emergency department for evaluation for poorly controlled chronic back pain. Patient states she does have history of chronic back pain is typically in a wheelchair. Patient reports that this morning she noted she urinated overnight and while attempting to get up to clean herself she was unable to because worsening back pain. Patient denies a specific incident injury denies any recent falls. Related Data Home Medications ?Medication ?Instructions ?Recorded ?Confirmed ?Last Taken ?Type fluticasone propionate 50 1 spray intranasal DAILY PRN 08/16/20 05/04/25 05/03/25 History mcg/actuation nasal allergies spray,suspension ascorbate calcium (vitamin C) 500 500 mg PO DAILY 06/20/24 05/04/25 05/03/25 History mg tablet folic acid 800 mcg tablet 0.8 mg PO DAILY 06/20/24 05/04/25 05/03/25 History ferrous sulfate 325 mg (65 mg 325 mg PO DAILY 01/16/25 05/04/25 05/03/25 History iron) tablet (Leonard-Time) insulin lispro 100 unit/mL 3 unit subcut TID 01/16/25 05/04/25 05/03/25 History subcutaneous pen (Humalog KwikPen (U-100) Insulin) lanolin alcohols-mineral 1 applic topical DAILY 01/16/25 05/04/25 05/03/25 History oil-w.petrolatum-ceresin topical cream spironolactone 25 mg tablet 50 mg PO QAM 01/31/25 05/04/25 05/03/25 History lidocaine 5 % topical patch 1 patch topical DAILY 03/05/25 05/04/25 05/03/25 History metolazone 2.5 mg tablet 2.5 mg PO DAILY 04/01/25 05/04/25 05/03/25 History sodium chloride 1 gram tablet 1,000 mg PO DAILY 04/01/25 05/04/25 05/03/25 History insulin glargine 100 unit/mL (3 15 unit subcut QPM 05/04/25 05/04/25 05/03/25 History mL) subcutaneous pen (Lantus Solostar U-100 Insulin) methocarbamol 750 mg tablet 750 mg PO TID 05/04/25 05/04/25 05/03/25 History Allergies Allergy/AdvReac Type Severity Reaction Status Date / Time codeine AdvReac Unknown Headache Verified 05/04/25 10:29 Review of Systems Review of Systems: All systems reviewed & are unremarkable except as noted in HPI and below PMFSH Past Medical History Medical History Alcoholic cirrhosis of liver Chronic venous insufficiency of lower extremity Stage 3a chronic kidney disease Shingles ANTHONY (obstructive sleep apnea) Osteoporosis Gram-negative bacteremia Anemia of chronic disease Ascites Obesity (BMI 30-39.9) Hyperlipidemia, unspecified Carotid artery disease Alcohol abuse Osteoarthritis Diastolic dysfunction ECHO 10/2023: normal LV systolic function, estimated EF of 60-65%, abnormal diastolic dysfunction. Left-sided carotid artery disease US 01/2021: 50 to 69% stenosis of the left ICA. Orthostatic hypotension on midodrine, chronic hypotension, previously caused syncope and frequent falls and subsequent fractures. Insulin dependent type 2 diabetes mellitus A1C 5.1% 08/2024 Chronic hyponatremia Eczema Periprosthetic fracture of femur following total replacement of hip (01/2020) Non operative treatment. GERD (gastroesophageal reflux disease) Surgical History Surgical History Status post open reduction with internal fixation of fracture (05/30/21) ORIF of comminuted intra-articular fracture of the distal left femur, done at [facility]. History of hysterectomy (2005) Due to uterine fibroids and endometriosis. History of bilateral cataract extraction History of lumbar surgery (2005) L1-L3. History of right hip replacement (2005) Per Dr. Curiel in [place]. Family History Family History Father Heart attack Mother Diabetes mellitus COPD (chronic obstructive pulmonary disease) Hypertension Afib Sibling Amputation above knee Diabetes mellitus Father , At age 50 Acute myocardial infarction Sibling , At age 50 Pancreatic cancer Social History Social History Social History: The patient lives in her own home in [place]. She has been twice, her 1st and she has since her 2nd . She has no children. She moved to this area within the last couple of years from [place] to be close to her 3 remaining siblings. She worked from home for a a [email or web address] doing [employer] and she has a master's degree in statistics. She has recently retired.She smoked up to 2 packs of cigarettes a day before quitting in 2005. She drinks 2 mixed drinks a day, each containing a shot of vodka which equals out to about 1 L to 1.7 L of vodka a week. She denies illicit substance use. Surrogate decision maker: Miladys Jensen, sister. Code status: Full code. Smoking packs per day: 2 Smoking cigarettes per day: 40.0 Years smoked: 30 Smoking pack-years: 60.00 Smoking status: Never smoker Smokeless tobacco user: chewing tobacco Second hand tobacco smoke exposure: No Alcohol intake: never Drinks per week: 14 Substance use: never Substance use type: does not use Do You Feel Safe in your Home?: Yes Lack of Transportation: No Lack of Food: Never True Current Housing: I Have Housing Concerned About Future Housing: No Difficulty Paying Gas/Electric Bills: No Difficulty Paying for Meds: No Currently Unemployed: No Education: Decline to Answer Difficulty w/ Childcare or Family Care: No Living arrangements: alone Occupation/Education: retired Gender identity (if verbalized by the patient): Female Sexual Orientation (if Verbalized by the Patient): Straight or Heterosexual Spiritual care concerns: No Exam Narrative: APPEARANCE: Well appearing, no pain, no distress, well-nourished. HEAD: normocephalic, atraumatic. EYES: PERRLA/EOMI, conjunctivae clear. NOSE: Normal no drainage EARS:TMS clear with good light reflex. THROAT: Pharynx clear, no exudate. NECK: Supple. No adenopathy, no masses. RESPIRATORY: Airway patent, respirations nonlabored. Clear to auscultation bilaterally, no rales, rhonchi, wheezing. CARDIOVASCULAR: Regular rate and rhythm without murmurs rubs or gallops. ABDOMINAL: Soft, nontender, nondistended, normal bowel sounds MUSCULOSKELETAL: Moves all extremities. Midline back tenderness NEURO: Alert. Cranial nerves II through XII intact. Good gait. Good coordination SKIN: Pressure wound on right buttock Course Vital Signs Vital signs: Vital Signs Temperature 97.6 F 05/04/25 10:24 Pulse Rate 96 05/04/25 10:24 Respiratory Rate 20 05/04/25 10:24 Blood Pressure 127/59 L 05/04/25 10:24 Pulse Oximetry 96 05/04/25 10:24 Oxygen Delivery Room Air 05/04/25 10:24 Temperature 97.4 F L 05/04/25 16:48 Pulse Rate 97 05/04/25 16:48 Respiratory Rate 16 05/04/25 16:48 Blood Pressure 128/53 L 05/04/25 16:48 Pulse Oximetry 100 05/04/25 16:48 Oxygen Delivery Room Air 05/04/25 10:24 Medical Decision Making MDM Narrative Medical decision making narrative: 70-year-old female presents to the emergency department for evaluation for acute on chronic back pain. Patient denies any falls or injuries. Patient states she does take tramadol at home for pain control. Patient was treated with Dexter in the emergency department and states she does feel improved. Patient did not tolerate her ambulation. Patient states she lives at home alone and is unable to care for herself and this state. Patient is willing to be admitted and placed and to rehab facility for further pain management Care coordination was consulted and patient does not qualify for admission to rehab from the emergency department. Differential Diagnosis Differential Diagnosis: Acute on chronic back pain, thoracic fracture, lumbar fracture, cauda equina, UTI Vital Signs Vital Signs: Vital Signs Temperature 97.6 F 05/04/25 10:24 Pulse Rate 96 05/04/25 10:24 Respiratory Rate 20 05/04/25 10:24 Blood Pressure 127/59 L 05/04/25 10:24 Pulse Oximetry 96 05/04/25 10:24 Oxygen Delivery Room Air 05/04/25 10:24 Temperature 97.4 F L 05/04/25 16:48 Pulse Rate 97 05/04/25 16:48 Respiratory Rate 16 05/04/25 16:48 Blood Pressure 128/53 L 05/04/25 16:48 Pulse Oximetry 100 05/04/25 16:48 Oxygen Delivery Room Air 05/04/25 10:24 Lab Data Lab results reviewed: Yes I reviewed the patient's lab results. 05/04/25 12:55 05/04/25 12:57 Labs: Lab Results 05/04/25 05/04/25 Range/Units 12:55 12:57 WBC 7.2 (4.5-10.0) K/mm3 RBC 3.66 L (4.2-5.4) M/mm3 Hgb 11.8 L D (12.0-15.0) g/dL Hct 35.0 L (37.0-47.0) % MCV 95.6 (80-100) fl MCH 32.2 (26-34) pg MCHC 33.7 (32-36) g/dl RDW 14.9 H (11.5-14.5) % Plt Count 167 (150-375) k/mm3 MPV 10.2 (7.4-10.4) fl Immature Gran % (Auto) 1.1 H (0-0.5) % Neut % (Auto) 81.8 H (45.5-73.1) % Lymph % (Auto) 5.1 L (18.3-44.2) % Redwood % (Auto) 8.9 H (2.6-8.5) % Eos % (Auto) 2.5 (0-4.4) % Baso % (Auto) 0.6 (0.2-1.2) % Lymph # (Auto) 0.37 L (0.9-3.2) K/mm3 Redwood # (Auto) 0.6 (0.1-0.6) K/mm3 Eos # (Auto) 0.2 (0-0.3) K/mm3 Baso # (Auto) 0.0 (0.0-0.1) K/mm3 Abs Immat Gran (auto) 0.08 H (0.00-0.031) K/mm3 Absolute Neuts (auto) 5.9 (1.3-6.7) K/mm3 Absolute Nucleated RBC 0.000 (0.0-0.012) K/mm3 Nucleated RBC % 0.0 (0.0-0.2) % Sodium 125 L (137-145) mmol/L Potassium 3.5 (3.4-5.0) mmol/L Chloride 89 L (98-107) mmol/L Carbon Dioxide 24 (22-30) mmol/L Anion Gap 12 (4-12) mmol/L BUN 24 H (7-17) mg/dL Creatinine 1.15 H (0.7-1.0) mg/dL Estim Creat Clear Calc 36 ml/min Estimated GFR 47 L (59 - ) Glucose 139 H (65-110) mg/dL Calcium 9.6 (8.4-10.2) mg/dL Total Bilirubin 1.6 H (0.2-1.3) mg/dL AST 32 (14-36) U/L ALT 14 (6-35) U/L Alkaline Phosphatase 264 H (38-126) U/L Total Protein 7.4 (6.3-8.2) g/dL Albumin 4.1 (3.5-5.1) g/dL Imaging Data Radiologist's impression: Impressions Thoracic/Lumbar Spine CT 05/04/25 14:04 IMPRESSION: Small right pleural effusion. Acute/subacute mild compression fractures at T9, T10, and T12. 5 mm groundglass and 15 mm mixed groundglass/solid right upper lobe pulmonary nodules that have increased in size slightly since the October comparison CT. Recommend biopsy or PET/CT. No acute fracture or traumatic malalignment detected in the lumbar spine. Discharge Plan Discharge Clinical Impression: Acute on chronic back pain, Adult failure to thrive, Compression fracture Patient Disposition: Still a Patient Condition: Stable
--- OUTSIDE RECORDS SUMMARY | 2025-05-04 10:53 | XMS_ITS | Referral Summary ---
Author Organization [facility] Address [address] [place] [address] Care Team Providers Care Supervisor Furnace Room Name Role Phone Augustus Birch MD Unavailable Ghanshyam Ruiz NP Primary Care Provider [phone] Encounters Date Type Department Care Team Description 04/30/2025 9:45 AM CDT Office Visit [facility] Cardiology [address] [place] [address] Carlitos Edmonds MD Chronic diastolic congestive heart failure (HCC) (Primary Dx); Stage 3b chronic kidney disease (HCC); Debility 03/25/2025 Telephone [facility] Cardiology [address] [place] [address] Carlitos Edmonds MD 02/27/2025 Orders Only [facility] [phone] Unknown, Notinfile 02/25/2025 Orders Only [facility] [phone] Unknown, Notinfile 02/24/2025 Orders Only [facility] [phone] Unknown, Notinfile 02/22/2025 Orders Only [facility] [phone] Unknown, Notinfile 02/21/2025 Orders Only [facility] [phone] Unknown, Notinfile 02/19/2025 Orders Only [facility] [phone] Unknown, Notinfile from Last 3 Months Allergies Active Allergy Reactions Criticality Noted Date Comments Codeine Unknown 02/27/[address]lijahUS SOLOSTAR U-100 INSULIN 100 unit/mL (3 mL) [...] mouth daily Active blood-glucose meter,continuous (Dexcom G6 Screw Eye Assembler) misc Activ e thiamine (VITAMIN B1) 100 [...] BY MOUTH EVERY MORNING 90 tablet 3 12/17/20 24 Active acyclovir (ZOVIRAX) 5 % ointment [...] mouth daily 30 tablet 11/21/19 25 Active Additional Information Patient not taking.Reported on 04/30/2025 midodrine (PROAMATINE) 10 mg tabletIndications: Symptomatic Orthostatic Hypotension Take 1 tablet (10 mg total) by mouth 3 (three) times a day before meals 90 tablet 11/20/[address] (PROTONIX) 40 mg EC tabletIndications: Treatment of Non-Bleeding Gastric Disorder Take 1 tablet (40 mg total) by mouth 2 (two) times a day 60 tablet 11 11/20/19 25 026 Active Additional Information Patient not taking.Reported on 04/30/2025 propranoloL (INDERAL) 10 mg tablet Take 1 tablet (10 mg total) by mouth 3 (three) times a day 90 tablet 11/20/19 25 Active Additional Information Patient not taking.Reported on 04/30/2025 ondansetron ODT (ZOFRAN-ODT) 4 mg disintegrating tablet [...] 1 tablet (1 g total) by mouth buffing and sueding machine operator before breakfast 06/04/20 21 Active sodium [...] 11/29/2024 Assessment & Plan (11/29/2024 11:50 AM 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 More than 4 times per year 11/12/2024 Do you belong to any clubs o r organizations such as faith groups, unions, fraternal or athletic groups, or [...] any time in the past 12 m [facility], were you homeless or living in a [facility] (including now)? No 11/12/2024 Personal Safety Answer [...] Sign Reading Time Taken Comments Blood Pressure 124/54 04/30/2025 9:45 AM CDT Pulse 96 04/30/2025 9:45 AM CDT Temperature 36.4 C (97.5 F) 11/20/2024 4:02 AM BREAD OVEN OPERATOR Respiratory Rate 16 04/30/2025 9:45 AM CDT Oxygen Saturation 98% 04/30/2025 9:45 AM CDT Inhaled Oxygen Concentration - - Weight 65.3 kg (144 lb) 12/25/2024 9:24 AM CDT Height 165.1 cm (5' 5) 12/25/2024 9:24 AM CDT Body Mass Index 23.96 12/25/2024 9:24 AM CDT Plan of Treatment Not on file Procedures Procedure Name Priority Date/Time Associated Diagnosis Comments POCT LIPID PANEL Routine 04/30/2025 9:40 AM CDT Chronic diastolic congestive heart failure (HCC) EGFR Routine 02/27/2025 5:32 AM CDT COMPREHENSIVE [...] AUTO DIFFERENTIAL Routine 02/19/2025 5:40 AM CDT HEMOGLOBIN A1C Routine 11/16/2024 9:56 AM BREAD OVEN OPERATOR from Last 3 Months or Most Recently Relevant to Health Maintenance Results * POCT lipid panel (04/30/2025 9:40 AM CDT) Cholesterol, POC 150 <200 MG/DL HDL, POC 57 >=40 mg/dL Triglycerides, POC 68 <=149 mg/dL LDL Cholesterol POC 80 <=129 mg/dL Chol/HDL Ratio, POC 1.4 NONE Non-HDL Cholesterol, POC 94 NONE mg/dL Cholesterol Total, POC 150 30 - 199 mg/dL Capillary blood 04/30/2025 9 :40 AM CDT Carlitos Edmonds MD POINT OF CARE TEST ORDERABLES Fi nal Result * (ABNORMAL) eGFR (02/27/2025 5:32 AM CDT) eGFR 37(L) >=60 mL/min/1. 73 m2 DAYANA [...] was last reviewed 2021. Testing performed by: [address] [address] Blood 02/27/2025 5:32 AM CDT 02/27/2025 8:24 AM CDT us Notinfile Unknown LAB BLOOD ORDERABLES Final Res ult DAY[facility] Department of Laboratories [place], [place] [id number] * (ABNORMAL) Differential, auto (02/27/2025 5:32 AM CDT) Neutrophil abs 3.62 1.50 - 6.50 K/cumm DAYANA Comment:Testing performed by : [address] [address] Imm gran abs 0.01 0.00 - 0.10 K/cumm DAYANA Comment:Testing performed by : [address] [address] Lymphocyte abs 0.52(L) 0.80 - 3.30 K/cumm [facility] Comment:Testing performed by : [address] [address] Monocyte abs 0.60 0.20 - 0.80 K/cumm DAYANA Comment:Testing performed by : [address] [address] Eosinophil abs 0.40 0.00 - 0.50 K/cumm DAYANA Comment:Testing performed by : [address] [address] Basophil abs 0.04 0.00 - 0.10 K/cumm DAY[facility] Comment:Testing performed by : [address] [address] Neutrophil pct 69.7 % [facility] Comment: Interpretive Data Percent cell count reference ranges are not reported, since discordance with absolute values may lead to misinterpretation of CBC data. Current Interpretive Data was last revised on 2018. Testing performed by: [address] [address] Imm gran pct 0.2 % [facility] Comment: Interpretive Data Percent cell count reference ranges are not reported, since discordance with absolute values may lead to misinterpretation of CBC data. Current Interpretive Data was last revised on 2018. Testing performed by: [address] [address] Lymphocyte pct 10.0 % [facility] Comment: Interpretive Data Percent cell count reference ranges are not reported, since discordance with absolute values may lead to misinterpretation of CBC data. Current Interpretive Data was last revised on 2018. Testing performed by: [address] [address] Monocyte pct 11.6 % [facility] Comment: Interpretive Data Percent cell count reference ranges are not reported, since discordance with absolute values may lead to misinterpretation of CBC data. Current Interpretive Data was last revised on 2018. Testing performed by: [address] [address] Eosinophil pct 7.7 % [facility] Comment: Interpretive Data Percent cell count reference ranges are not reported, since discordance with absolute values may lead to misinterpretation of CBC data. Current Interpretive Data was last revised on 2018. Testing performed by: [address] [address] Basophil pct 0.8 % [facility] Comment: Interpretive Data Percent cell count reference ranges are not reported, since discordance with absolute values may lead to misinterpretation of CBC data. Current Interpretive Data was last revised on 2018. Testing performed by: [address] [address] Blood 02/27/2025 5:32 AM CDT 02/27/2025 8:24 AM CDT us Notinfile Unknown LAB BLOOD ORDERABLES Final Res ult DAYANA CARPIO [address] [facility] [place] [address] * (ABNORMAL) CBC with auto differential (02/27/2025 5:32 AM CDT) WBC 5.19 3.80 - 9.90 K/cumm DAYANA CARPIO Comment:Testing performed by : [address] [address] Hgb 7.6(L) 11.9 - 15.5 g/dL DAYANA CARPIO Comment:Testing performed by : [address] [address] Hct 23.8(L) 35.6 - 45.5 % DAYANA CARPIO Comment:Testing performed by : [address] [address] Plt 164 150 - 400 K/cumm DAYANA CARPIO Comment:Testing performed by : [address] [address] MPV 12.0 9.1 - 12.3 fL DAYANA CARPIO Comment:Testing performed by : [address] [address] RBC 2.40(L) 3.90 - 5.20 M/cumm DAYANA CARPIO Comment:Testing performed by : [address] [address] MCV 99.2(H) 81.3 - 96.4 fL DAYANA CARPIO Comment:Testing performed by : [address] [address] MCH 31.7 27.1 - 33.3 pg DAYANA CARPIO Comment:Testing performed by : [address] [address] MCHC 31.9(L) 32.3 - 35.7 g/dL DAYANA CARPIO Comment:Testing performed by : [address], [address] RDW CV 16.6(H) 11.1 - 14.9 % DAYANA CARPIO Comment:Testing performed by : [address] [address] RDW SD 60.8(H) 35.7 - 48.1 fL DAYANA CARPIO Comment:Testing performed by : [address] [address] NRBC abs 0.00 0.00 - 0.01 K/cumm DAYANA Comment:Testing performed by : [address] [address] Blood 02/27/2025 5:32 AM CDT 02/27/2025 8:24 AM CDT us Notinfile Unknown LAB BLOOD ORDERABLES Final Res ult DAYANA [address] [facility] [place] [address] * (ABNORMAL) Comprehensive metabolic panel (02/27/2025 5:32 AM CDT) Sodium 136 135 - 145 mmol/L DAYANA Comment:Testing performed by : [address] [address] Potassium, pl 4.2 3.3 - 4.9 mmol/L DAY[facility] Comment:Testing performed by : [address] [address] Chloride 96(L) 97 - 110 mmol/L [facility] Comment:Testing performed by : [address] [address] CO2 27 22 - 32 mmol/L DAY[facility] Comment:Testing performed by : [address] [address] Anion gap 13 2 - 15 mmol/L DAY[facility] Comment:Testing performed by : [address] [address] BUN 28(H) 6 - 25 mg/dL [facility] Comment:Testing performed by : [address] [address] Creatinine 1.50(H) 0.60 - 1.10 mg/dL [facility] Comment:Testing performed by : [address] [address] Glucose 103 70 - 199 mg/dL DAYANA [...] was last revised 2022. Testing performed by: [address] [address] Calcium 9.8 8.5 - 10.3 mg/dL [facility] Comment:Testing performed by : [address] [address] Bilirubin, total 1.4(H) 0.1 - 1.2 mg/dL [facility] Comment:Testing performed by : [address] [address] Protein, pl 6.6 6.5 - 8.5 g/dL [facility] Comment:Testing performed by : [address] [address] Albumin 4.0 3.5 - 5.0 g/dL [facility] Comment:Testing performed by : [address] [address] Alk phos 404(H) 40 - 130 Units/L [facility] Comment:Testing performed by : [address] [address] ALT 21 7 - 45 Units/L [facility] Comment:Testing performed by : [address] [address] AST 40 10 - 45 Units/L DAYANA Comment:Testing performed by : [address] [address] Blood 02/27/2025 5:32 AM CDT 02/27/2025 8:24 AM CDT us Notinfile Unknown LAB BLOOD ORDERABLES Final Res ult Performing Organization Address City/[facility] Co de Phone Number DAYANA CARPIO [address] [facility] [place] [address] * (ABNORMAL) eGFR (02/25/2025 6:12 AM CDT) [...] was last reviewed 2021. Testing performed by: [facility], [address] [place] [address]., [address] Blood 02/25/2025 6:12 AM CDT 02/25/2025 8:22 AM CDT us Notinfile Unknown LAB BLOOD ORDERABLES Final Res ult Performing Organization Address City/[facility]/ZIP Co de Phone Number DAYANA [address] [facility] [place] [address] * (ABNORMAL) Basic metabolic panel (02/25/2025 6:12 AM CDT) Sodium 136 135 - 145 mmol/L DAYANA Comment:Testing performed by : [address] [address] Potassium, pl 4.0 3.3 - 4.9 mmol/L DAY[facility] Comment:Testing performed by : [address] [address] Chloride 97 97 - 110 mmol/L DAY[facility] Comment:Testing performed by : [address], [place]., [address] CO2 27 22 - 32 mmol/L [facility] Comment:Testing performed by : [address], [place]., [address] Anion gap 12 2 - 15 mmol/L DAY[facility] Comment:Testing performed by : [address], [place]., [address] BUN 26(H) 6 - 25 mg/dL [facility] Comment:Testing performed by : [address], [place]., [address] Creatinine 1.46(H) 0.60 - 1.10 mg/dL DAY[facility] Comment:Testing performed by : [address], [place]., [address] Glucose 97 70 - 199 mg/dL [facility] Comment: Interpretive Data Fasting glucose [...] was last revised 2022. Testing performed by: [address] [address] Calcium 9.9 8.5 - 10.3 mg/dL DAY[facility] Comment:Testing performed by : [address], [place]., [address] Blood 02/25/2025 6:12 AM CDT 02/25/2025 8:22 AM CDT us Notinfile Unknown LAB BLOOD ORDERABLES Final Res ult Performing Organization Address [facility] Co de Phone Number DAYANA [address] [facility] [place] [address] * (ABNORMAL) eGFR (02/24/2025 6:10 AM CDT) [...] was last reviewed 2021. Testing performed by: [address] [address] Blood 02/24/2025 6:10 AM CDT 02/24/2025 8:16 AM CDT us Notinfile Unknown LAB BLOOD ORDERABLES Final Res ult Performing Organization Address City/[facility]/ZIP Co de Phone Number DAYANA [address] [facility] [place] [address] * (ABNORMAL) Differential, auto (02/24/2025 6:10 AM CDT) Neutrophil abs 2.57 1.50 - 6.50 K/cumm DAYANA Comment:Testing performed by : [address] [address] Imm gran abs 0.01 0.00 - 0.10 K/cumm [facility] Comment:Testing performed by : [address] [address] Lymphocyte abs 0.73(L) 0.80 - 3.30 K/cumm [facility] Comment:Testing performed by : [address] [address] Monocyte abs 0.50 0.20 - 0.80 K/cumm [facility] Comment:Testing performed by : [address], [place]., [address] Eosinophil abs 0.38 0.00 - 0.50 K/cumm [facility] Comment:Testing performed by : [address] [address] Basophil abs 0.02 0.00 - 0.10 K/cumm [facility] Comment:Testing performed by : [address] [address] Neutrophil pct 61.1 % [facility] Comment: Interpretive Data Percent cell count reference ranges are not reported, since discordance with absolute values may lead to misinterpretation of CBC data. Current Interpretive Data was last revised on 2018. Testing performed by: [address] [address] Imm gran pct 0.2 % [facility] Comment: Interpretive Data Percent cell count reference ranges are not reported, since discordance with absolute values may lead to misinterpretation of CBC data. Current Interpretive Data was last revised on 2018. Testing performed by: [address] [address] Lymphocyte pct 17.3 % [facility] Comment: Interpretive Data Percent cell count reference ranges are not reported, since discordance with absolute values may lead to misinterpretation of CBC data. Current Interpretive Data was last revised on 2018. Testing performed by: [address] [address] Monocyte pct 11.9 % [facility] Comment: Interpretive Data Percent cell count reference ranges are not reported, since discordance with absolute values may lead to misinterpretation of CBC data. Current Interpretive Data was last revised on 2018. Testing performed by: [address] [address] Eosinophil pct 9.0 % DAYANA CARPIO Comment: Interpretive Data Percent cell count reference ranges are not reported, since discordance with absolute values may lead to misinterpretation of CBC data. Current Interpretive Data was last revised on 2018. Testing performed by: [address] [address] Basophil pct 0.5 % DAYANA CARPIO Comment: Interpretive Data Percent cell count reference ranges are not reported, since discordance with absolute values may lead to misinterpretation of CBC data. Current Interpretive Data was last revised on 2018. Testing performed by: [address] [address] Blood 02/24/2025 6:10 AM CDT 02/24/2025 8:16 AM CDT us Notinfile Unknown LAB BLOOD ORDERABLES Final Res ult DAY[facility] [place] [address] * (ABNORMAL) CBC with auto differential (02/24/2025 6:10 AM CDT) WBC 4.21 3.80 - 9.90 K/cumm DAY[facility] CARPIO Comment:Testing performed by : [address] [address] Hgb 7.7(L) 11.9 - 15.5 g/dL [facility] CARPIO Comment:Testing performed by : [address] [address] Hct 24.8(L) 35.6 - 45.5 % [facility] CARPIO Comment:Testing performed by : [address] [address] Plt 211 150 - 400 K/cumm DAY[facility] CARPIO Comment:Testing performed by : [address] [address] MPV 11.8 9.1 - 12.3 fL [facility] CARPIO Comment:Testing performed by : [address] [address] RBC 2.47(L) 3.90 - 5.20 M/cumm DAY[facility] CARPIO Comment:Testing performed by : [address] [address] MCV 100.4(H) 81.3 - 96.4 fL DAY[facility] CARPIO Comment:Testing performed by : [address] [address] MCH 31.2 27.1 - 33.3 pg [facility] Comment:Testing performed by : [address] [address] MCHC 31.0(L) 32.3 - 35.7 g/dL DAY[facility] CARPIO Comment:Testing performed by : [address] [address] RDW CV 16.9(H) 11.1 - 14.9 % [facility] Comment:Testing performed by : [address] [address] RDW SD 61.9(H) 35.7 - 48.1 fL [facility] Comment:Testing performed by : [address] [address] NRBC abs 0.00 0.00 - 0.01 K/cumm [facility] Comment:Testing performed by : [address] [address] Blood 02/24/2025 6:10 AM CDT 02/24/2025 8:16 AM CDT us Notinfile Unknown LAB BLOOD ORDERABLES Final Res ult DAYANA [address] [facility] [place] [address] * (ABNORMAL) Comprehensive metabolic panel (02/24/2025 6:10 AM CDT) Pathologist [facility] Sodium 136 135 - 145 mmol/L DAYANA Comment:Testing performed by : [address] [address] Potassium, pl 4.0 3.3 - 4.9 mmol/L [facility] Comment:Testing performed by : [address] [address] Chloride 97 97 - 110 mmol/L [facility] Comment:Testing performed by : [address], [place]., [address] CO2 28 22 - 32 mmol/L [facility] Comment:Testing performed by : [address] [address] Anion gap 11 2 - 15 mmol/L [facility] Comment:Testing performed by : [address], [place]., [address] BUN 26(H) 6 - 25 mg/dL [facility] Comment:Testing performed by : [address] [address] Creatinine 1.64(H) 0.60 - 1.10 mg/dL [facility] Comment:Testing performed by : [address] [address] Glucose 97 70 - 199 mg/dL [facility] Comment: Interpretive Data Fasting glucose [...] was last revised 2022. Testing performed by: [address] [address] Calcium 9.7 8.5 - 10.3 mg/dL [facility] Comment:Testing performed by : [address] [address] Bilirubin, total 1.2 0.1 - 1.2 mg/dL [facility] Comment:Testing performed by : [address] [address] Protein, pl 6.7 6.5 - 8.5 g/dL [facility] Comment:Testing performed by : [address] [address] Albumin 4.2 3.5 - 5.0 g/dL [facility] Comment:Testing performed by : [address] [address] Alk phos 393(H) 40 - 130 Units/L [facility] Comment:Testing performed by : [address] [address] ALT 19 7 - 45 Units/L [facility] Comment:Testing performed by : [address] [address] AST 42 10 - 45 Units/L [facility] Comment:Testing performed by : [address] [address] Blood 02/24/2025 6:10 AM CDT 02/24/2025 8:16 AM CDT us Notinfile Unknown LAB BLOOD ORDERABLES Final Res ult DAY[facility] [place] [address] * (ABNORMAL) eGFR (02/22/2025 5:20 AM CDT) eGFR 40(L) >=60 mL/min/1. 73 m2 [facility] Comment: Interpretive [...] was last reviewed 2021. Testing performed by: [address] [address] Blood 02/22/2025 5:20 AM CDT 02/22/2025 8:27 AM CDT us Notinfile Unknown LAB BLOOD ORDERABLES Final Res ult DAYANA [address] [facility] [place] [address] * (ABNORMAL) Basic metabolic panel (02/22/2025 5:20 AM CDT) Sodium 137 135 - 145 mmol/L [facility] Comment:Testing performed by : [address] [address] Potassium, pl 4.0 3.3 - 4.9 mmol/L [facility] Comment:Testing performed by : [address] [address] Chloride 98 97 - 110 mmol/L [facility] Comment:Testing performed by : [address] [address] CO2 29 22 - 32 mmol/L [facility] Comment:Testing performed by : [address] [address] Anion gap 10 2 - 15 mmol/L [facility] Comment:Testing performed by : [address] [address] BUN 26(H) 6 - 25 mg/dL [facility] Comment:Testing performed by : [address] [address] Creatinine 1.42(H) 0.60 - 1.10 mg/dL [facility] Comment:Testing performed by : [address] [address] Glucose 108 70 - 199 mg/dL [facility] Comment: Interpretive [...] was last revised 2022. Testing performed by: [facility], [address] [place] [address]., [address] Calcium 9.8 8.5 - 10.3 mg/dL DAYANA CARPIO Comment:Testing performed by : [address] [address] Blood 02/22/2025 5:20 AM CDT 02/22/2025 8:27 AM CDT us Notinfile Unknown LAB BLOOD ORDERABLES Final Res ult DAYANA CARPIO [address] [facility] of [facility] [place], [place] [id number] * (ABNORMAL) eGFR (02/21/2025 6:04 AM CDT) [...] was last reviewed 2021. Testing performed by: [address] [address] Blood 02/21/2025 6:04 AM CDT 02/21/2025 8:58 AM CDT us Notinfile Unknown LAB BLOOD ORDERABLES Final Res ult [facility] [address] [facility] [place] [address] * (ABNORMAL) Differential, auto (02/21/2025 6:04 AM CDT) Neutrophil abs 2.28 1.50 - 6.50 K/cumm [facility] Comment:Testing performed by : [address] [address] Imm gran abs 0.02 0.00 - 0.10 K/cumm [facility] Comment:Testing performed by : [address] [address] Lymphocyte abs 0.78(L) 0.80 - 3.30 K/cumm [facility] Comment:Testing performed by : [address] [address] Monocyte abs 0.45 0.20 - 0.80 K/cumm [facility] Comment:Testing performed by : [address] [address] Eosinophil abs 0.51(H) 0.00 - 0.50 K/cumm [facility] Comment:Testing performed by : [address] [address] Basophil abs 0.04 0.00 - 0.10 K/cumm [facility] Comment:Testing performed by : [address] [address] Neutrophil pct 55.9 % [facility] Comment: Interpretive Data Percent cell count reference ranges are not reported, since discordance with absolute values may lead to misinterpretation of CBC data. Current Interpretive Data was last revised on 2018. Testing performed by: [address] [address] Imm gran pct 0.5 % [facility] Comment: Interpretive Data Percent cell count reference ranges are not reported, since discordance with absolute values may lead to misinterpretation of CBC data. Current Interpretive Data was last revised on 2018. Testing performed by: [address] [address] Lymphocyte pct 19.1 % [facility] Comment: Interpretive Data Percent cell count reference ranges are not reported, since discordance with absolute values may lead to misinterpretation of CBC data. Current Interpretive Data was last revised on 2018. Testing performed by: [address] [address] Monocyte pct 11.0 % [facility] Comment: Interpretive Data Percent cell count reference ranges are not reported, since discordance with absolute values may lead to misinterpretation of CBC data. Current Interpretive Data was last revised on 2018. Testing performed by: [address] [address] Eosinophil pct 12.5 % [facility] Comment: Interpretive Data Percent cell count reference ranges are not reported, since discordance with absolute values may lead to misinterpretation of CBC data. Current Interpretive Data was last revised on 2018. Testing performed by: [address] [address] Basophil pct 1.0 % [facility] Comment: Interpretive Data Percent cell count reference ranges are not reported, since discordance with absolute values may lead to misinterpretation of CBC data. Current Interpretive Data was last revised on 2018. Testing performed by: [address] [address] Blood 02/21/2025 6:04 AM CDT 02/21/2025 8:58 AM CDT us Notinfile Unknown LAB BLOOD ORDERABLES Final Res ult DAYANA CARPIO [address] [facility] [place], [place] [id number] * (ABNORMAL) CBC with auto differential (02/21/2025 6:04 AM CDT) WBC 4.08 3.80 - 9.90 K/cumm DAYANA Comment:Testing performed by : [address] [address] Hgb 8.1(L) 11.9 - 15.5 g/dL DAYANA Comment:Testing performed by : [address] [address] Hct 25.5(L) 35.6 - 45.5 % DAYANA Comment:Testing performed by : [address] [address] Plt 226 150 - 400 K/cumm DAYANA Comment:Testing performed by : [address] [address] MPV 12.2 9.1 - 12.3 fL DAYANA Comment:Testing performed by : [address] [address] RBC 2.50(L) 3.90 - 5.20 M/cumm DAYANA Comment:Testing performed by : [address] [address] MCV 102.0(H) 81.3 - 96.4 fL DAYANA Comment:Testing performed by : [address] [address] MCH 32.4 27.1 - 33.3 pg DAYANA Comment:Testing performed by : [address] [address] MCHC 31.8(L) 32.3 - 35.7 g/dL [facility] Comment:Testing performed by : [address] [address] RDW CV 17.2(H) 11.1 - 14.9 % DAYANA Comment:Testing performed by : [address] [address] RDW SD 63.7(H) 35.7 - 48.1 fL DAYANA Comment:Testing performed by : [address] [address] NRBC abs 0.00 0.00 - 0.01 K/cumm DAYANA Comment:Testing performed by : [address] [address] Blood 02/21/2025 6:04 AM CDT 02/21/2025 8:58 AM CDT us Notinfile Unknown LAB BLOOD ORDERABLES Final Res ult DAYANA [address] [facility] [place] [address] * (ABNORMAL) Comprehensive metabolic panel (02/21/2025 6:04 AM CDT) Sodium 139 135 - 145 mmol/L DAYANA Comment:Testing performed by : [address] [address] Potassium, pl 3.8 3.3 - 4.9 mmol/L DAYANA Comment:Testing performed by : [address] [address] Chloride 96(L) 97 - 110 mmol/L DAY[facility] Comment:Testing performed by : [address] [address] CO2 28 22 - 32 mmol/L DAY[facility] Comment:Testing performed by : [address] [address] Anion gap 15 2 - 15 mmol/L DAYANA Comment:Testing performed by : [address] [address] BUN 27(H) 6 - 25 mg/dL DAYANA Comment:Testing performed by : [address] [address] Creatinine 1.43(H) 0.60 - 1.10 mg/dL [facility] Comment:Testing performed by : [address] [address] Glucose 88 70 - 199 mg/dL DAYANA [...] was last revised 2022. Testing performed by: [address] [address] Calcium 10.0 8.5 - 10.3 mg/dL DAYANA Comment:Testing performed by : [address] [address] Bilirubin, total 1.3(H) 0.1 - 1.2 mg/dL DAYANA Comment:Testing performed by : [address] [address] Protein, pl 7.0 6.5 - 8.5 g/dL DAYANA Comment:Testing performed by : [address] [address] Albumin 4.3 3.5 - 5.0 g/dL DAYANA Comment:Testing performed by : [address] [address] Alk phos 322(H) 40 - 130 Units/L DAYANA Comment:Testing performed by : [address] [address] ALT 13 7 - 45 Units/L DAYANA Comment:Testing performed by : [address] [address] AST 31 10 - 45 Units/L DAYANA Comment:Testing performed by : [address] [address] Blood 02/21/2025 6:04 AM CDT 02/21/2025 8:58 AM CDT us Notinfile Unknown LAB BLOOD ORDERABLES Final Res ult DAYANA CARPIO [address] [facility] [place] [address] * (ABNORMAL) eGFR (02/19/2025 5:40 AM CDT) [...] was last reviewed 2021. Testing performed by: [address] [address] Blood 02/19/2025 5:40 AM CDT 02/19/2025 8:19 AM CDT us Notinfile Unknown LAB BLOOD ORDERABLES Final Res ult DAYANA [address] [facility] [place], [place] [id number] * (ABNORMAL) Differential, auto (02/19/2025 5:40 AM CDT) Pathologist [facility] Neutrophil abs 2.76 1.50 - 6.50 K/cumm DAYANA Comment:Testing performed by : [address] [address] Imm gran abs 0.02 0.00 - 0.10 K/cumm DAYANA Comment:Testing performed by : [address] [address] Lymphocyte abs 0.73(L) 0.80 - 3.30 K/cumm DAYANA Comment:Testing performed by : [address] [address] Monocyte abs 0.51 0.20 - 0.80 K/cumm [facility] Comment:Testing performed by : [address] [address] Eosinophil abs 0.67(H) 0.00 - 0.50 K/cumm [facility] Comment:Testing performed by : [address], [place]., [address] Basophil abs 0.04 0.00 - 0.10 K/cumm [facility] Comment:Testing performed by : [address] [address] Neutrophil pct 58.4 % [facility] Comment: Interpretive Data Percent cell count reference ranges are not reported, since discordance with absolute values may lead to misinterpretation of CBC data. Current Interpretive Data was last revised on 2018. Testing performed by: [address] [address] Imm gran pct 0.4 % [facility] Comment: Interpretive Data Percent cell count reference ranges are not reported, since discordance with absolute values may lead to misinterpretation of CBC data. Current Interpretive Data was last revised on 2018. Testing performed by: [address] [address] Lymphocyte pct 15.4 % [facility] Comment: Interpretive Data Percent cell count reference ranges are not reported, since discordance with absolute values may lead to misinterpretation of CBC data. Current Interpretive Data was last revised on 2018. Testing performed by: [address] [address] Monocyte pct 10.8 % [facility] Comment: Interpretive Data Percent cell count reference ranges are not reported, since discordance with absolute values may lead to misinterpretation of CBC data. Current Interpretive Data was last revised on 2018. Testing performed by: [address] [address] Eosinophil pct 14.2 % [facility] Comment: Interpretive Data Percent cell count reference ranges are not reported, since discordance with absolute values may lead to misinterpretation of CBC data. Current Interpretive Data was last revised on 2018. Testing performed by: [address] [address] Basophil pct 0.8 % [facility] Comment: Interpretive Data Percent cell count reference ranges are not reported, since discordance with absolute values may lead to misinterpretation of CBC data. Current Interpretive Data was last revised on 2018. Testing performed by: [address] [address] Blood 02/19/2025 5:40 AM CDT 02/19/2025 8:19 AM CDT us Notinfile Unknown LAB BLOOD ORDERABLES Final Res ult DAYANA [facility] [place] [address] * (ABNORMAL) CBC with auto differential (02/19/2025 5:40 AM CDT) WBC 4.73 3.80 - 9.90 K/cumm DAYANA Comment:Testing performed by : [address] [address] Hgb 7.5(L) 11.9 - 15.5 g/dL DAYANA CARPIO Comment:Testing performed by : [address] [address] Hct 24.5(L) 35.6 - 45.5 % [facility] Comment:Testing performed by : [address] [address] Plt 215 150 - 400 K/cumm DAY[facility] Comment:Testing performed by : [address] [address] MPV 12.2 9.1 - 12.3 fL DAYANA CARPIO Comment:Testing performed by : [address] [address] RBC 2.42(L) 3.90 - 5.20 M/cumm DAYANA CARPIO Comment:Testing performed by : [address] [address] MCV 101.2(H) 81.3 - 96.4 fL DAYANA CARPIO Comment:Testing performed by : [address] [address] MCH 31.0 27.1 - 33.3 pg DAY[facility] CARPIO Comment:Testing performed by : [address] [address] MCHC 30.6(L) 32.3 - 35.7 g/dL DAYANA CARPIO Comment:Testing performed by : [address] [address] RDW CV 17.1(H) 11.1 - 14.9 % DAYANA CARPIO Comment:Testing performed by : [address] [address] RDW SD 62.5(H) 35.7 - 48.1 fL DAYANA CARPIO Comment:Testing performed by : [address] [address] NRBC abs 0.00 0.00 - 0.01 K/cumm DAYANA CARPIO Comment:Testing performed by : [address] [address] Blood 02/19/2025 5:40 AM CDT 02/19/2025 8:19 AM CDT us Notinfile Unknown LAB BLOOD ORDERABLES Final Res ult DAYANA [facility] [place], [place] [id number] * (ABNORMAL) Comprehensive metabolic panel (02/19/2025 5:40 AM CDT) Sodium 136 135 - 145 mmol/L DAYANA CARPIO Comment:Testing performed by : [address] [address] Potassium, pl 3.8 3.3 - 4.9 mmol/L DAYANA CARPIO Comment:Testing performed by : [address] [address] Chloride 97 97 - 110 mmol/L DAYANA CARPIO Comment:Testing performed by : [address] [address] CO2 27 22 - 32 mmol/L DAYANA CARPIO Comment:Testing performed by : [address] [address] Anion gap 12 2 - 15 mmol/L [facility] Comment:Testing performed by : [address] [address] BUN 26(H) 6 - 25 mg/dL [facility] Comment:Testing performed by : [address] [address] Creatinine 1.33(H) 0.60 - 1.10 mg/dL [facility] Comment:Testing performed by : [address] [address] Glucose 139 70 - 199 mg/dL [facility] Comment: Interpretive Data Fasting glucose [...] was last revised 2022. Testing performed by: [address] [address] Calcium 9.8 8.5 - 10.3 mg/dL [facility] Comment:Testing performed by : [address] [address] Bilirubin, total 1.3(H) 0.1 - 1.2 mg/dL [facility] Comment:Testing performed by : [address] [address] Protein, pl 6.5 6.5 - 8.5 g/dL [facility] Comment:Testing performed by : [address] [address] Albumin 4.1 3.5 - 5.0 g/dL [facility] Comment:Testing performed by : [address] [address] Alk phos 300(H) 40 - 130 Units/L DAYANA CARPIO Comment:Testing performed by : [facility], [address] [place] [address]., [address] ALT 11 7 - 45 Units/L DAYANA CARPIO Comment:Testing performed by : [address] [address] AST 26 10 - 45 Units/L DAYANA CARPIO Comment:Testing performed by : [facility], [address] [place] [address]., [address] Blood 02/19/2025 5:40 AM CDT 02/19/2025 8:19 AM CDT us Notinfile Unknown LAB BLOOD ORDERABLES Final Res ult DAYANA BALAJI [address] [facility] [place] [address] from Last 3 Months Additional Health Concerns Infection Onset Date Last Indicated C. difficile Comment:FROM OS 02/04/2025 02/04/2025 Insurance MEDICARE [facility] Address: [address] [address] [place] [address] [employer] Advance Directives For more information, please contact: [phone] Documents on File Type Date Recorded Patient Content Strategy Lead Expl anation ADVANCE DIRECTIVE 11/13/2024 3:42 PM Power of Market Researcher-Medical * Full Code (Latest Code Status on File) Date Activated Date Inactivated Comments 11/12/2024 2:31 AM 11/20/2024 10:35 PM Care Teams Supervisor Furnace Room Relationship Specialty Start Date End Date Ghanshyam Ruiz NP [address] [place] [address] PCP - General Nurse Practitioner 09/03/24 Augustus Birch MD [address] [facility] [address] [place], [place] [id number] Internal Medicine 04/17/19
--- OUTSIDE RECORDS SUMMARY | 2025-05-04 10:53 | XMS_ITS | Clinical Summary ---
Author Organization [facility] Address [address] [place] [phone] Phone Care Team Providers Care Prison Officer Name Role Phone Dariel Horvath DO Primary [...] and Medium Risk (2 of 3 - PCV20 or PCV21) 09/24/2020 09/24/2019 Influenza Vaccine (#1) 2025 Insurance MEDICARE T Care Teams Prison Officer Relationship Specialty Start Date End Date Dariel Horvath DO [address] [place] [address] PCP - General Internal Medicine 05/27/21
--- OUTSIDE RECORDS SUMMARY | 2025-05-04 10:53 | XMS_ITS | Encounter Summary ---
Author Organization [facility] Healthcare Address [address] [place] [address] Care Team Providers Care Targeteer Name Role Phone Augustus Birch MD Unavailable Ghanshyam Ruiz NP Primary Care Provider [phone] Encounter Details Date Type Department Care Team (Late st Contact Info) Description 01/31/2025 Hospital Encounter [facility] ADMIT [address] [place] [address] Kelvin Win MD [address] [facility] [address] [place] [address] Social History Tobacco Use Types Packs/Day Years Used Date Smoking Tobacco: Former Cigarettes 1 30 Q uit: 2005 Smokeless Tobacco: Never [facility] Utilities Answer Date Recorded In the past 12 months has [employer], gas, oil, or water [employer] threatened to shut off services in your [...] week 11/12/2024 How often do you attend [facility] or pentecostalism services? More than 4 times per year 11/12/2024 Do you belong to any clubs o r organizations such as judaism groups, unions, fraternal or athletic groups, or [...] any time in the past 12 m [facility], were you homeless or living [...] documented as of this encounter Care Teams Targeteer Relationship Specialty Start Date End Date Ghanshyam Ruiz, ALEJO [address] [place] [address] PCP - General Nurse Practitioner 09/03/24 Augustus Birch MD [address] [place] [address] Internal Medicine 04/17/19 documented as of this encounter
--- OUTSIDE RECORDS SUMMARY | 2025-05-04 10:53 | XMS_ITS | Patient Health Record ---
Author Organization [facility] [employer] [place] ([address]) Address [address] [place] [address] Care Team Providers Care Financial Internship Name Role Phone Ramesh Smith Primary Care Provider Dr. Juan Hartmann Unavailable [phone] Wilfrido Harley Unavailable Allergies Allergen (clinical drug ingredient) Drug/Non Drug Allergy documented on EMR Reaction Allergy Type Onset Date Status codeine Codeine Unknown Drug Allergy Active Reason For Referral No Information Medications Medication SIG (Take, Route, Frequency, Duration) Notes Start Date End Date Status Atorvastatin Calcium 10 MG 1 tab(s) orally once a day; Duration: 30 day(s) Active Sodium Chloride 1 GM as directed Active FUROSEMIDE 20 mg 1 tab(s) orally once a day; Duration: 30 day(s) Active Alendronate Sodium 70 MG 1 tab(s) orally once a week; Duration: 28 day(s) Active LANTUS 100 units/mL 0 subcutaneously hs Active HumaLOG 100 UNIT/ML 3 subcutaneously ac Active HUMALOG 100 units/mL 3 subcutaneously ac Active ALENDRONATE 70 mg 1 tab(s) orally once a week; Duration: 28 day(s) Active SODIUM CHLORIDE 1 g as directed Active ATORVASTATIN 10 mg 1 tab(s) orally once a day; Duration: 30 day(s) Active LABETALOL 100 mg 1 tab(s) orally Qday Active CLOBETASOL TOPICAL 0.05% 1 mike applied t opically 2 times a day; Duration: 14 day(s) Active PRILOSEC OTC 20 mg 1 tab(s) orally once a day; Duration: 14 day(s) Active POTASSIUM CHLORIDE 10 mEq 1 tab(s) orall y 2 times a day; Duration: 30 day(s) Active PriLOSEC OTC 20 MG [...] Polyneuropathy due to type 2 diabetes mellitus (603133261) Type 2 diabetes mellitus with diabetic polyneuropathy (E11.42) Active confirmed Problem Hypo-osmolality and or hyponatremia (447692454) Hypo-osmolality and hyponatremia (E87.1) Active confirmed Problem Alcohol dependence (43393029) Alcohol dependence, uncomplicated (F10.20) Active confirmed Problem Cerebral degeneration associated with another disorder (779968590) 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 confirmed Problem Chronic migraine without aura, non-intractable (183382455694362) Chronic migraine without aura, not intractable, without status migrainosus (G43.709) Active confirmed Problem Alcoholic polyneuropathy (3298566) 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 confirmed Problem Orthostatic hypotension (97434944) Orthostatic hypotension (I95.1) Active confirmed Problem Abnormal gait (29542814) Other abnormalities of gait and mobility (R26.89) Active confirmed Problem Malaise (067553745) Other malaise (R53.81) Active confirmed Problem Neurogenic claudication (816217299) Spinal stenosis, lumbar region with neurogenic claudication (M48.062) Active confirmed Plan Of Treatment No Information Insurance Providers Payer Name Payer Address Payer Phone Subscriber Number Group Number Insured Name Patient Relationship to Insured Coverage Start Date Coverage End Date [employer] (Medicare) Attention Claims [address] [place] [address] [id number] Lou Islas Self - patient is the insured [employer] [address] [place] [address] [id number] Lou Islas Self - patient is the insured Medical (General) History Medical History History ICD Code Obesity DM2 HLD HTN Osteoarthritis Osteoporosis Lumbar DDD GERD Chronic hyponatremia Mild CKD Liver cirrhosis Surgical History Surgery Date(Month/Year) R hip replacement L hip replacement Lumbar discectomy B cataract
--- OUTSIDE RECORDS SUMMARY | 2025-05-04 10:53 | XMS_ITS | Clinical Summary ---
Author Organization [facility] Address [address] [place] [address] Care Team Providers Care Associate Data Scientist Name Role Phone Augustus Birch MD Unavailable Ghanshyam Ruiz NP Primary Care Provider [phone] Allergies Active Allergy Reactions Criticality Noted Date [...] mouth daily Active blood-glucose meter,continuous (Dexcom G6 Surgical Dental Assistant) misc Activ e thiamine (VITAMIN B1) 100 [...] solution for nebulization Take by nebulization Active [email or web address] G7 Sensor device USE DIRECTED - CHANGE [...] 1 tablet (1 g total) by mouth manager scheduling before breakfast 06/04/20 21 Active sodium zirconium [...] 11/29/2024 Assessment & Plan (11/29/2024 11:50 AM CERTIFIED MEDICAL ASST): Bilateral lower extremity chronic venous insufficiency with [...] Description 04/30/2025 9:45 AM CDT Office Visit [facility] [address] [place] [address] Carlitos Edmonds MD Chronic diastolic congestive heart failure (HCC) (Primary Dx); Stage 3b chronic kidney disease (HCC); Debility 03/25/2025 Telephone [facility] [address] [place] [address] Carlitos Edmonds MD 02/27/2025 Orders Only [facility] [phone] Unknown, Notinfile 02/25/2025 Orders Only [facility] [phone] Unknown, Notinfile 02/24/2025 Orders Only [facility] [phone] Unknown, Notinfile 02/22/2025 Orders Only [facility] [phone] Unknown, Notinfile 02/21/2025 Orders Only [facility] [phone] Unknown, Notinfile 02/19/2025 Orders Only [facility] [phone] Unknown, Notinfile from Last 3 Months Immunizations Immunization Administration [...] Tobacco: Never Tobacco Cessation:Counseling Given: Not Answered [facility] Utilities Answer Date Recorded In the past 12 months has e [employer], gas, oil, or water company threatened to shut off services in your [...] often do you attend chur ch or restoration services? More than 4 times per year 11/12/2024 Do you belong to any clubs o r organizations such as holiness groups, unions, fraternal or athletic groups, or [...] were you homeless or living in a chcf (including now)? No 11/12/2024 Personal Safety Answer [...] 36.4 C (97.5 F) 11/20/2024 4:02 AM CERTIFIED MEDICAL ASST Respiratory Rate 16 04/30/2025 9:45 AM CDT [...] 2024 07/17/2023, 07/22/2022, 05/05/2022, Additional history exists Influenza Vaccine (#1) 2025 , 07/17/2023, 07/22/2022, Additional history exists Hemoglobin A1C 08/10/2025 02/08/2025, 02/0 10/2024, 05/31/2021 Fall Risk Assessment 11/19/2025 11/19/2024 eGFR 02/27/2026 02/27/2025, 05/1 12/2024, 02/24/2025, Additional history exists Lipid Panel 04/30/2026 04/30/2025, 11/15/2023 Procedures Procedure Name Priority Date/Time Associated Diagnosis [...] CDT HEMOGLOBIN A1C Routine 11/16/2024 9:56 AM CERTIFIED MEDICAL ASST from Last 3 Months or Most Recently Relevant to Health Maintenance Results * POCT lipid panel (04/30/2025 9:40 AM CDT) Pathologist [facility] Cholesterol, POC 150 <200 MG/DL HDL, POC 57 >=40 mg/dL Triglycerides, POC 68 <=149 mg/dL LDL Cholesterol POC 80 <=129 mg/dL Chol/HDL Ratio, POC 1.4 NONE Non-HDL Cholesterol, POC 94 NONE mg/dL Cholesterol Total, POC 150 30 - 199 mg/dL Capillary blood 04/30/2025 9 :40 AM CDT us Carlitos Edmonds MD POINT OF CARE TEST ORDERABLES Fi nal Result * (ABNORMAL) eGFR (02/27/2025 5:32 AM CDT) Pathologist [facility] eGFR 37(L) >=60 mL/min/1. 73 m2 DAYANA [...] last reviewed 2021. Testing performed by: [address] [address] Blood 02/27/2025 5:32 AM CDT 02/27/2025 8:24 AM CDT us Notinfile Unknown LAB BLOOD ORDERABLES Final Res ult DAY[facility] Department of Laboratories [place], [place] [id number] * (ABNORMAL) Differential, auto (02/27/2025 5:32 AM CDT) Neutrophil abs 3.62 1.50 - 6.50 K/cumm DAYANA Comment:Testing performed by : [address] [address] Imm gran abs 0.01 0.00 - 0.10 K/cumm [facility] Comment:Testing performed by : [address] [address] Lymphocyte abs 0.52(L) 0.80 - 3.30 K/cumm [facility] Comment:Testing performed by : [address] [address] Monocyte abs 0.60 0.20 - 0.80 K/cumm DAY[facility] Comment:Testing performed by : [address] [address] Eosinophil abs 0.40 0.00 - 0.50 K/cumm [facility] Comment:Testing performed by : [address] [address] Basophil abs 0.04 0.00 - 0.10 K/cumm DAYANA Comment:Testing performed by : [address] [address] Neutrophil pct 69.7 % [facility] Comment: Interpretive Data Percent cell count reference ranges are not reported, since discordance with absolute values may lead to misinterpretation of CBC data. Current Interpretive Data was last revised on 2018. Testing performed by: [address] [address] Imm gran pct 0.2 % [facility] Comment: Interpretive Data Percent cell count reference ranges are not reported, since discordance with absolute values may lead to misinterpretation of CBC data. Current Interpretive Data was last revised on 2018. Testing performed by: [address] [address] Lymphocyte pct 10.0 % [facility] Comment: Interpretive Data Percent cell count reference ranges are not reported, since discordance with absolute values may lead to misinterpretation of CBC data. Current Interpretive Data was last revised on 2018. Testing performed by: [address] [address] Monocyte pct 11.6 % [facility] Comment: Interpretive Data Percent cell count reference ranges are not reported, since discordance with absolute values may lead to misinterpretation of CBC data. Current Interpretive Data was last revised on 2018. Testing performed by: [address] [address] Eosinophil pct 7.7 % [facility] Comment: Interpretive Data Percent cell count reference ranges are not reported, since discordance with absolute values may lead to misinterpretation of CBC data. Current Interpretive Data was last revised on 2018. Testing performed by: [address] [address] Basophil pct 0.8 % [facility] Comment: Interpretive Data Percent cell count reference ranges are not reported, since discordance with absolute values may lead to misinterpretation of CBC data. Current Interpretive Data was last revised on 2018. Testing performed by: [address] [address] Blood 02/27/2025 5:32 AM CDT 02/27/2025 8:24 AM CDT us Notinfile Unknown LAB BLOOD ORDERABLES Final Res ult DAYANA [address] [facility] [place] [address] * (ABNORMAL) CBC with auto differential (02/27/2025 5:32 AM CDT) WBC 5.19 3.80 - 9.90 K/cumm [facility] Comment:Testing performed by : [address] [address] Hgb 7.6(L) 11.9 - 15.5 g/dL [facility] Comment:Testing performed by : [address] [address] Hct 23.8(L) 35.6 - 45.5 % [facility] Comment:Testing performed by : [address] [address] Plt 164 150 - 400 K/cumm [facility] Comment:Testing performed by : [address] [address] MPV 12.0 9.1 - 12.3 fL DAY[facility] Comment:Testing performed by : [address] [address] RBC 2.40(L) 3.90 - 5.20 M/cumm [facility] Comment:Testing performed by : [address] [address] MCV 99.2(H) 81.3 - 96.4 fL [facility] Comment:Testing performed by : [address] [address] MCH 31.7 27.1 - 33.3 pg [facility] Comment:Testing performed by : [address] [address] MCHC 31.9(L) 32.3 - 35.7 g/dL [facility] Comment:Testing performed by : [address] [address] RDW CV 16.6(H) 11.1 - 14.9 % [facility] Comment:Testing performed by : [address] [address] RDW SD 60.8(H) 35.7 - 48.1 fL [facility] Comment:Testing performed by : [address], [place]., [address] NRBC abs 0.00 0.00 - 0.01 K/cumm [facility] Comment:Testing performed by : [address] [address] Blood 02/27/2025 5:32 AM CDT 02/27/2025 8:24 AM CDT us Notinfile Unknown LAB BLOOD ORDERABLES Final Res ult DAYANA [address] [facility] Department of Laboratories [place], [place] [id number] * (ABNORMAL) Comprehensive metabolic panel (02/27/2025 5:32 AM CDT) Sodium 136 135 - 145 mmol/L DAY[facility] Comment:Testing performed by : [address] [address] Potassium, pl 4.2 3.3 - 4.9 mmol/L [facility] Comment:Testing performed by : [address] [address] Chloride 96(L) 97 - 110 mmol/L [facility] Comment:Testing performed by : [address] [address] CO2 27 22 - 32 mmol/L [facility] Comment:Testing performed by : [address] [address] Anion gap 13 2 - 15 mmol/L [facility] Comment:Testing performed by : [address] [address] BUN 28(H) 6 - 25 mg/dL [facility] Comment:Testing performed by : [address] [address] Creatinine 1.50(H) 0.60 - 1.10 mg/dL [facility] Comment:Testing performed by : [address] [address] Glucose 103 70 - 199 mg/dL DAYANA [...] last revised 2022. Testing performed by: [address] [address] Calcium 9.8 8.5 - 10.3 mg/dL [facility] Comment:Testing performed by : [address] [address] Bilirubin, total 1.4(H) 0.1 - 1.2 mg/dL [facility] Comment:Testing performed by : [address] [address] Protein, pl 6.6 6.5 - 8.5 g/dL [facility] Comment:Testing performed by : [address] [address] Albumin 4.0 3.5 - 5.0 g/dL [facility] Comment:Testing performed by : [address] [address] Alk phos 404(H) 40 - 130 Units/L [facility] Comment:Testing performed by : [address] [address] ALT 21 7 - 45 Units/L [facility] Comment:Testing performed by : [address] [address] AST 40 10 - 45 Units/L [facility] Comment:Testing performed by : [facility], [address] [place] [address]., [address] Blood 02/27/2025 5:32 AM CDT 02/27/2025 8:24 AM CDT us Notinfile Unknown LAB BLOOD ORDERABLES Final Res ult Performing Organization Address [facility] Co de Phone Number DAYANA [address] [place] [address] * (ABNORMAL) eGFR (02/25/2025 6:12 AM CDT) [...] last reviewed 2021. Testing performed by: [facility], [address] [place] [address]., [address] Blood 02/25/2025 6:12 AM CDT 02/25/2025 8:22 AM CDT us Notinfile Unknown LAB BLOOD ORDERABLES Final Res ult Performing Organization Address [facility]/ZIP Co de Phone Number [place] [phone] [facility] [place] [address] * (ABNORMAL) Basic metabolic panel (02/25/2025 6:12 AM CDT) Sodium 136 135 - 145 mmol/L [facility] Comment:Testing performed by : [address] [address] Potassium, pl 4.0 3.3 - 4.9 mmol/L [facility] Comment:Testing performed by : [address] [address] Chloride 97 97 - 110 mmol/L [facility] Comment:Testing performed by : [address], [place]., [address] CO2 27 22 - 32 mmol/L [facility] Comment:Testing performed by : [address] [address] Anion gap 12 2 - 15 mmol/L [facility] Comment:Testing performed by : [address] [address] BUN 26(H) 6 - 25 mg/dL [facility] Comment:Testing performed by : [address] [address] Creatinine 1.46(H) 0.60 - 1.10 mg/dL [facility] Comment:Testing performed by : [address] [address] Glucose 97 70 - 199 mg/dL DAYANA [...] last revised 2022. Testing performed by: [address] [address] Calcium 9.9 8.5 - 10.3 mg/dL [facility] Comment:Testing performed by : [address] [place]., [address] Blood 02/25/2025 6:12 AM CDT 02/25/2025 8:22 AM CDT us Notinfile Unknown LAB BLOOD ORDERABLES Final Res ult Performing Organization Address [facility] de Phone Number DAYANA [address] [place] [address] [place] [address] * (ABNORMAL) eGFR (02/24/2025 6:10 AM CDT) [...] last reviewed 2021. Testing performed by: [facility], [address] [place] [address]., [address] Blood 02/24/2025 6:10 AM CDT 02/24/2025 8:16 AM CDT us Notinfile Unknown LAB BLOOD ORDERABLES Final Res ult Performing Organization Address City/[facility]/ZIP Co de Phone Number DAYANA [facility] [place] [address] * (ABNORMAL) Differential, auto (02/24/2025 6:10 AM CDT) Pathologist [facility] Neutrophil abs 2.57 1.50 - 6.50 K/cumm DAYANA Comment:Testing performed by : [address] [address] Imm gran abs 0.01 0.00 - 0.10 K/cumm [facility] Comment:Testing performed by : [address], [place]., [address] Lymphocyte abs 0.73(L) 0.80 - 3.30 K/cumm [facility] Comment:Testing performed by : [address] [address] Monocyte abs 0.50 0.20 - 0.80 K/cumm [facility] Comment:Testing performed by : [address] [address] Eosinophil abs 0.38 0.00 - 0.50 K/cumm [facility] Comment:Testing performed by : [address] [address] Basophil abs 0.02 0.00 - 0.10 K/cumm [facility] Comment:Testing performed by : [address] [address] Neutrophil pct 61.1 % [facility] Comment: Interpretive Data Percent cell count reference ranges are not reported, since discordance with absolute values may lead to misinterpretation of CBC data. Current Interpretive Data was last revised on 2018. Testing performed by: [address] [address] Imm gran pct 0.2 % [facility] Comment: Interpretive Data Percent cell count reference ranges are not reported, since discordance with absolute values may lead to misinterpretation of CBC data. Current Interpretive Data was last revised on 2018. Testing performed by: [address] [address] Lymphocyte pct 17.3 % [facility] Comment: Interpretive Data Percent cell count reference ranges are not reported, since discordance with absolute values may lead to misinterpretation of CBC data. Current Interpretive Data was last revised on 2018. Testing performed by: [address] [address] Monocyte pct 11.9 % [facility] Comment: Interpretive Data Percent cell count reference ranges are not reported, since discordance with absolute values may lead to misinterpretation of CBC data. Current Interpretive Data was last revised on 2018. Testing performed by: [address] [address] Eosinophil pct 9.0 % [facility] Comment: Interpretive Data Percent cell count reference ranges are not reported, since discordance with absolute values may lead to misinterpretation of CBC data. Current Interpretive Data was last revised on 2018. Testing performed by: [address] [address] Basophil pct 0.5 % [facility] Comment: Interpretive Data Percent cell count reference ranges are not reported, since discordance with absolute values may lead to misinterpretation of CBC data. Current Interpretive Data was last revised on 2018. Testing performed by: [address] [address] Blood 02/24/2025 6:10 AM CDT 02/24/2025 8:16 AM CDT us Notinfile Unknown LAB BLOOD ORDERABLES Final Res ult DAYANA [address] [facility] Department [place] [address] * (ABNORMAL) CBC with auto differential (02/24/2025 6:10 AM CDT) WBC 4.21 3.80 - 9.90 K/cumm DAY[facility] Comment:Testing performed by : [address] [address] Hgb 7.7(L) 11.9 - 15.5 g/dL [facility] Comment:Testing performed by : [address] [address] Hct 24.8(L) 35.6 - 45.5 % [facility] Comment:Testing performed by : [address] [address] Plt 211 150 - 400 K/cumm [facility] Comment:Testing performed by : [address] [address] MPV 11.8 9.1 - 12.3 fL [facility] Comment:Testing performed by : [address] [address] RBC 2.47(L) 3.90 - 5.20 M/cumm [facility] Comment:Testing performed by : [address] [address] MCV 100.4(H) 81.3 - 96.4 fL [facility] Comment:Testing performed by : [address] [address] MCH 31.2 27.1 - 33.3 pg [facility] Comment:Testing performed by : [address] [address] MCHC 31.0(L) 32.3 - 35.7 g/dL [facility] Comment:Testing performed by : [address] [address] RDW CV 16.9(H) 11.1 - 14.9 % [facility] Comment:Testing performed by : [address], [address] RDW SD 61.9(H) 35.7 - 48.1 fL [facility] Comment:Testing performed by : [address] [address] NRBC abs 0.00 0.00 - 0.01 K/cumm [facility] Comment:Testing performed by : [address] [address] Blood 02/24/2025 6:10 AM CDT 02/24/2025 8:16 AM CDT us Notinfile Unknown LAB BLOOD ORDERABLES Final Res ult DAYANA [facility] [address] [facility] Department of Laboratories [place], [place] [id number] * (ABNORMAL) Comprehensive metabolic panel (02/24/2025 6:10 AM CDT) [facility] Signature Sodium 136 135 - 145 mmol/L DAY[facility] Comment:Testing performed by : [address] [address] Potassium, pl 4.0 3.3 - 4.9 mmol/L [facility] Comment:Testing performed by : [address], [place]., [address] Chloride 97 97 - 110 mmol/L [facility] Comment:Testing performed by : [address], [place]., [address] CO2 28 22 - 32 mmol/L [facility] Comment:Testing performed by : [address], [place]., [address] Anion gap 11 2 - 15 mmol/L [facility] Comment:Testing performed by : [address], [place]., [address] BUN 26(H) 6 - 25 mg/dL [facility] Comment:Testing performed by : [address], [place]., [address] Creatinine 1.64(H) 0.60 - 1.10 mg/dL [facility] Comment:Testing performed by : [address] [address] Glucose 97 70 - 199 mg/dL [facility] Comment: Interpretive Data Fasting glucose >/= [...] last revised 2022. Testing performed by: [address] [address] Calcium 9.7 8.5 - 10.3 mg/dL [facility] Comment:Testing performed by : [address], [place]., [address] Bilirubin, total 1.2 0.1 - 1.2 mg/dL [facility] Comment:Testing performed by : [facility], [address] [place] [address]., [address] Protein, pl 6.7 6.5 - 8.5 g/dL [facility] Comment:Testing performed by : [address] [address] Albumin 4.2 3.5 - 5.0 g/dL [facility] Comment:Testing performed by : [address] [address] Alk phos 393(H) 40 - 130 Units/L [facility] Comment:Testing performed by : [address] [address] ALT 19 7 - 45 Units/L [facility] Comment:Testing performed by : [address] [address] AST 42 10 - 45 Units/L [facility] Comment:Testing performed by : [address] [address] Blood 02/24/2025 6:10 AM CDT 02/24/2025 8:16 AM CDT us Notinfile Unknown LAB BLOOD ORDERABLES Final Res ult DAY[facility] [address] [facility] [place] [address] * (ABNORMAL) eGFR (02/22/2025 5:20 AM CDT) [...] last reviewed 2021. Testing performed by: [address] [address] Blood 02/22/2025 5:20 AM CDT 02/22/2025 8:27 AM CDT us Notinfile Unknown LAB BLOOD ORDERABLES Final Res ult DAYANA [facility] [place] [address] * (ABNORMAL) Basic metabolic panel (02/22/2025 5:20 AM CDT) Sodium 137 135 - 145 mmol/L [facility] Comment:Testing performed by : [address] [address] Potassium, pl 4.0 3.3 - 4.9 mmol/L [facility] Comment:Testing performed by : [address] [address] Chloride 98 97 - 110 mmol/L [facility] Comment:Testing performed by : [address] [address] CO2 29 22 - 32 mmol/L [facility] Comment:Testing performed by : [address] [address] Anion gap 10 2 - 15 mmol/L [facility] Comment:Testing performed by : [address] [address] BUN 26(H) 6 - 25 mg/dL [facility] Comment:Testing performed by : [address] [address] Creatinine 1.42(H) 0.60 - 1.10 mg/dL [facility] Comment:Testing performed by : [address] [address] Glucose 108 70 - 199 mg/dL DAYANA [...] last revised 2022. Testing performed by: [facility], [address] [place] [address]., [address] Calcium 9.8 8.5 - 10.3 mg/dL [facility] Comment:Testing performed by : [facility], [address] [place] [address]., [address] Blood 02/22/2025 5:20 AM CDT 02/22/2025 8:27 AM CDT us Notinfile Unknown LAB BLOOD ORDERABLES Final Res ult DAYANA [address] [facility] [place] [address] * (ABNORMAL) eGFR (02/21/2025 6:04 [...] last reviewed 2021. Testing performed by: [address] [address] Blood 02/21/2025 6:04 AM CDT 02/21/2025 8:58 AM CDT us Notinfile Unknown LAB BLOOD ORDERABLES Final Res ult DAYANA [address] [facility] [place] [address] * (ABNORMAL) Differential, auto (02/21/2025 6:04 AM CDT) Neutrophil abs 2.28 1.50 - 6.50 K/cumm [facility] Comment:Testing performed by : [address] [address] Imm gran abs 0.02 0.00 - 0.10 K/cumm [facility] Comment:Testing performed by : [address] [address] Lymphocyte abs 0.78(L) 0.80 - 3.30 K/cumm [facility] Comment:Testing performed by : [address] [address] Monocyte abs 0.45 0.20 - 0.80 K/cumm [facility] Comment:Testing performed by : [address] [address] Eosinophil abs 0.51(H) 0.00 - 0.50 K/cumm [facility] Comment:Testing performed by : [address] [address] Basophil abs 0.04 0.00 - 0.10 K/cumm [facility] Comment:Testing performed by : [address] [address] Neutrophil pct 55.9 % [facility] Comment: Interpretive Data Percent cell count reference ranges are not reported, since discordance with absolute values may lead to misinterpretation of CBC data. Current Interpretive Data was last revised on 2018. Testing performed by: [address] [address] Imm gran pct 0.5 % [facility] Comment: Interpretive Data Percent cell count reference ranges are not reported, since discordance with absolute values may lead to misinterpretation of CBC data. Current Interpretive Data was last revised on 2018. Testing performed by: [address] [address] Lymphocyte pct 19.1 % [facility] Comment: Interpretive Data Percent cell count reference ranges are not reported, since discordance with absolute values may lead to misinterpretation of CBC data. Current Interpretive Data was last revised on 2018. Testing performed by: [address] [address] Monocyte pct 11.0 % [facility] Comment: Interpretive Data Percent cell count reference ranges are not reported, since discordance with absolute values may lead to misinterpretation of CBC data. Current Interpretive Data was last revised on 2018. Testing performed by: [address] [address] Eosinophil pct 12.5 % [facility] Comment: Interpretive Data Percent cell count reference ranges are not reported, since discordance with absolute values may lead to misinterpretation of CBC data. Current Interpretive Data was last revised on 2018. Testing performed by: [address] [address] Basophil pct 1.0 % [facility] Comment: Interpretive Data Percent cell count reference ranges are not reported, since discordance with absolute values may lead to misinterpretation of CBC data. Current Interpretive Data was last revised on 2018. Testing performed by: [address] [address] Blood 02/21/2025 6:04 AM CDT 02/21/2025 8:58 AM CDT us Notinfile Unknown LAB BLOOD ORDERABLES Final Res ult [facility] [address] [facility] [place] [address] * (ABNORMAL) CBC with auto differential (02/21/2025 6:04 AM CDT) [facility] Signature WBC 4.08 3.80 - 9.90 K/cumm DAY[facility] Comment:Testing performed by : [address] [address] Hgb 8.1(L) 11.9 - 15.5 g/dL [facility] Comment:Testing performed by : [address] [address] Hct 25.5(L) 35.6 - 45.5 % [facility] Comment:Testing performed by : [address] [address] Plt 226 150 - 400 K/cumm [facility] Comment:Testing performed by : [address] [address] MPV 12.2 9.1 - 12.3 fL [facility] Comment:Testing performed by : [address] [address] RBC 2.50(L) 3.90 - 5.20 M/cumm [facility] Comment:Testing performed by : [address] [address] MCV 102.0(H) 81.3 - 96.4 fL [facility] Comment:Testing performed by : [address] [address] MCH 32.4 27.1 - 33.3 pg [facility] Comment:Testing performed by : [address] [address] MCHC 31.8(L) 32.3 - 35.7 g/dL [facility] Comment:Testing performed by : [address] [address] RDW CV 17.2(H) 11.1 - 14.9 % [facility] Comment:Testing performed by : [address], [address] RDW SD 63.7(H) 35.7 - 48.1 fL [facility] Comment:Testing performed by : [address] [address] NRBC abs 0.00 0.00 - 0.01 K/cumm [facility] Comment:Testing performed by : [address] [address] Blood 02/21/2025 6:04 AM CDT 02/21/2025 8:58 AM CDT us Notinfile Unknown LAB BLOOD ORDERABLES Final Res ult [facility] [address] [facility] [facility] [place] [address] * (ABNORMAL) Comprehensive metabolic panel (02/21/2025 6:04 AM CDT) Sodium 139 135 - 145 mmol/L [facility] Comment:Testing performed by : [address] [address] Potassium, pl 3.8 3.3 - 4.9 mmol/L [facility] Comment:Testing performed by : [address] [address] Chloride 96(L) 97 - 110 mmol/L [facility] Comment:Testing performed by : [address] [address] CO2 28 22 - 32 mmol/L [facility] Comment:Testing performed by : [address] [address] Anion gap 15 2 - 15 mmol/L [facility] Comment:Testing performed by : [address] [address] BUN 27(H) 6 - 25 mg/dL [facility] Comment:Testing performed by : [address] [address] Creatinine 1.43(H) 0.60 - 1.10 mg/dL [facility] Comment:Testing performed by : [address] [address] Glucose 88 70 - 199 mg/dL DAYANA [...] last revised 2022. Testing performed by: [address] [address] Calcium 10.0 8.5 - 10.3 mg/dL [facility] Comment:Testing performed by : [address] [address] Bilirubin, total 1.3(H) 0.1 - 1.2 mg/dL [facility] Comment:Testing performed by : [address] [address] Protein, pl 7.0 6.5 - 8.5 g/dL [facility] Comment:Testing performed by : [address] [address] Albumin 4.3 3.5 - 5.0 g/dL [facility] Comment:Testing performed by : [address] [address] Alk phos 322(H) 40 - 130 Units/L [facility] Comment:Testing performed by : [address] [address] ALT 13 7 - 45 Units/L [facility] Comment:Testing performed by : [address] [address] AST 31 10 - 45 Units/L [facility] Comment:Testing performed by : [address] [address] Blood 02/21/2025 6:04 AM CDT 02/21/2025 8:58 AM CDT us Notinfile Unknown LAB BLOOD ORDERABLES Final Res ult [facility] [id number] [place] [address] * (ABNORMAL) eGFR (02/19/2025 5:40 AM CDT) [...] last reviewed 2021. Testing performed by: [address] [address] Blood 02/19/2025 5:40 AM CDT 02/19/2025 8:19 AM CDT us Notinfile Unknown LAB BLOOD ORDERABLES Final Res ult Performing Organization Address City/State/[facility] Co de Phone Number [facility] [address] [facility] [place] [address] * (ABNORMAL) Differential, auto (02/19/2025 5:40 AM CDT) Neutrophil abs 2.76 1.50 - 6.50 K/cumm [facility] Comment:Testing performed by : [address] [address] Imm gran abs 0.02 0.00 - 0.10 K/cumm [facility] Comment:Testing performed by : [address] [address] Lymphocyte abs 0.73(L) 0.80 - 3.30 K/cumm [facility] Comment:Testing performed by : [address] [address] Monocyte abs 0.51 0.20 - 0.80 K/cumm [facility] Comment:Testing performed by : [address], [place]., [address] Eosinophil abs 0.67(H) 0.00 - 0.50 K/cumm [facility] Comment:Testing performed by : [address], [place]., [address] Basophil abs 0.04 0.00 - 0.10 K/cumm [facility] Comment:Testing performed by : [address] [address] Neutrophil pct 58.4 % [facility] Comment: Interpretive Data Percent cell count reference ranges are not reported, since discordance with absolute values may lead to misinterpretation of CBC data. Current Interpretive Data was last revised on 2018. Testing performed by: [address] [address] Imm gran pct 0.4 % [facility] Comment: Interpretive Data Percent cell count reference ranges are not reported, since discordance with absolute values may lead to misinterpretation of CBC data. Current Interpretive Data was last revised on 2018. Testing performed by: [address] [address] Lymphocyte pct 15.4 % [facility] Comment: Interpretive Data Percent cell count reference ranges are not reported, since discordance with absolute values may lead to misinterpretation of CBC data. Current Interpretive Data was last revised on 2018. Testing performed by: [address] [address] Monocyte pct 10.8 % [facility] Comment: Interpretive Data Percent cell count reference ranges are not reported, since discordance with absolute values may lead to misinterpretation of CBC data. Current Interpretive Data was last revised on 2018. Testing performed by: [address] [address] Eosinophil pct 14.2 % [facility] Comment: Interpretive Data Percent cell count reference ranges are not reported, since discordance with absolute values may lead to misinterpretation of CBC data. Current Interpretive Data was last revised on 2018. Testing performed by: [address] [address] Basophil pct 0.8 % [facility] Comment: Interpretive Data Percent cell count reference ranges are not reported, since discordance with absolute values may lead to misinterpretation of CBC data. Current Interpretive Data was last revised on 2018. Testing performed by: [address] [address] Blood 02/19/2025 5:40 AM CDT 02/19/2025 8:19 AM CDT us Notinfile Unknown LAB BLOOD ORDERABLES Final Res ult [facility] [place] [address] * (ABNORMAL) CBC with auto differential (02/19/2025 5:40 AM CDT) WBC 4.73 3.80 - 9.90 K/cumm [facility] Comment:Testing performed by : [address] [address] Hgb 7.5(L) 11.9 - 15.5 g/dL [facility] Comment:Testing performed by : [address] [address] Hct 24.5(L) 35.6 - 45.5 % [facility] Comment:Testing performed by : [address] [address] Plt 215 150 - 400 K/cumm [facility] Comment:Testing performed by : [address] [address] MPV 12.2 9.1 - 12.3 fL [facility] Comment:Testing performed by : [address] [address] RBC 2.42(L) 3.90 - 5.20 M/cumm [facility] Comment:Testing performed by : [address] [address] MCV 101.2(H) 81.3 - 96.4 fL [facility] Comment:Testing performed by : [address] [address] MCH 31.0 27.1 - 33.3 pg [facility] Comment:Testing performed by : [address] [address] MCHC 30.6(L) 32.3 - 35.7 g/dL [facility] Comment:Testing performed by : [address] [address] RDW CV 17.1(H) 11.1 - 14.9 % [facility] Comment:Testing performed by : [address] [address] RDW SD 62.5(H) 35.7 - 48.1 fL [facility] Comment:Testing performed by : [address] [address] NRBC abs 0.00 0.00 - 0.01 K/cumm [facility] Comment:Testing performed by : [address] [address] Blood 02/19/2025 5:40 AM CDT 02/19/2025 8:19 AM CDT us Notinfile Unknown LAB BLOOD ORDERABLES Final Res ult [facility] [address] [facility] Department of Laboratories [place], [place] [id number] * (ABNORMAL) Comprehensive metabolic panel (02/19/2025 5:40 AM CDT) Sodium 136 135 - 145 mmol/L [facility] Comment:Testing performed by : [address] [address] Potassium, pl 3.8 3.3 - 4.9 mmol/L [facility] Comment:Testing performed by : [address] [place]., [address] Chloride 97 97 - 110 mmol/L [facility] Comment:Testing performed by : [address] [address] CO2 27 22 - 32 mmol/L [facility] Comment:Testing performed by : [address] [address] Anion gap 12 2 - 15 mmol/L [facility] Comment:Testing performed by : [address] [address] BUN 26(H) 6 - 25 mg/dL [facility] Comment:Testing performed by : [address] [address] Creatinine 1.33(H) 0.60 - 1.10 mg/dL [facility] Comment:Testing performed by : [address] [address] Glucose 139 70 - 199 mg/dL [facility] Comment: Interpretive Data Fasting glucose >/= [...] last revised 2022. Testing performed by: [address] [address] Calcium 9.8 8.5 - 10.3 mg/dL [facility] Comment:Testing performed by : [address] [address] Bilirubin, total 1.3(H) 0.1 - 1.2 mg/dL [facility] Comment:Testing performed by : [address] [address] Protein, pl 6.5 6.5 - 8.5 g/dL [facility] Comment:Testing performed by : [address] [address] Albumin 4.1 3.5 - 5.0 g/dL [facility] CARPIO Comment:Testing performed by : [facility], [address] [place] [address]., [address] Alk phos 300(H) 40 - 130 Units/L [facility]PIO Comment:Testing performed by : [address] [address] ALT 11 7 - 45 Units/L [facility]PIO Comment:Testing performed by : [address] [address] AST 26 10 - 45 Units/L [facility] Comment:Testing performed by : [address] [address] Blood 02/19/2025 5:40 AM CDT 02/19/2025 8:19 AM CDT us Notinfile Unknown LAB BLOOD ORDERABLES Final Res ult Performing Organization Address City/State/[facility] Co de Phone Number [facility] [address] [facility] [place] [address] from Last 3 Months Additional Health Concerns Infection Onset Date Last Indicated C. difficile Comment:FROM OS 02/04/2025 02/04/2025 Insurance MEDICARE [employer] SENIOR SUPPLEMENT Advance Directives For more information, please contact: [phone] Documents on File Type Date Recorded Patient Rail Manager Expl anation ADVANCE DIRECTIVE 11/13/2024 3:42 PM Power of Product Designer-Medical * Full Code (Latest Code Status on File) Date Activated Date Inactivated Comments 11/12/2024 2:31 AM 11/20/2024 10:35 PM Care Teams Associate Data Scientist Relationship Specialty Start Date End Date Ghanshyam Ruiz NP [address] [place] [address] PCP - General Nurse Practitioner 09/03/24 Augustus Birch MD [address] [place] [address] Internal Medicine 04/17/19
--- OUTSIDE RECORDS SUMMARY | 2025-05-04 10:53 | XMS_ITS ---
Author Organization [employer] [place] ([address]) Address [address] [place] [address] Care Team Providers Care Special Education Para Professional Name Role Phone Ramesh Smith Primary Care Provider UnavailDr. Juan Doherty Unavailable [phone] Wilfrido Harley Unavailable Unavailable [facility], Provider Unavailable Unavailab le Allergies Allergen (clinical drug ingredient) Drug/Non Drug Allergy documented on EMR Reaction Allergy Type Onset Date Status codeine Codeine Unknown Drug Allergy [facility] Conversion Encounter Medications Medication SIG [...] Date Provider Diagnosis [facility] - [address] [place] [address] 03/30/2024 Provider [facility] Plan Of Treatment No Information Progress Notes * Logan JOYOB:1955 (70 yo F)Acc No.[id number]:03/30/2024 Patient: Lou HARRIS Provider: Edel Taylor :1955 A ge:68 Y S ex:Female Date:03/30/2024 [id number] Pcp:Ramesh Smith Subjective: * Chief Complaints: * [address] [facility] * Medical History: [...] Electronic signature of Prov ider [facility] on 05/04/2025 at 10:52 AM CDT Sign off status: Pending * Provider: Edel Taylor Date: 0 03/30/2024 Generated for Mare kathleen/Tao/Rach on: 05/04/2025 10:52 AM CDT
--- OUTSIDE RECORDS SUMMARY | 2025-05-04 10:53 | XMS_ITS | Clinical Summary ---
Author Organization [facility] Address [address] [place] [address] Care Team Providers Care Account Executive Software Sales Name Role Phone Ghanshyam Ruiz Primary Care Provider Source Comments [facility],non-owned Affiliates and Associated Physician Practices is amultiple site organization consisting of ambulatory clinics and hospital sitesin [place], [place], [place] and [place]. This disclosure is being madepursuant to the Care Everywhere program and may not contain all information available regarding this patient. Last updated 18.[facility] Allergies Active Allergy Reactions Criticality [...] fluticasone propionate (Flonase) 50 MCG/ACT nasal spray Echo 1 (one) spray into the nose once daily Active omeprazole EC (PriLOSEC OTC) 20 MG tablet Take 1 (one) tablet by mouth daily before breakfast Active spironolactone (Aldactone) 25 MG tablet Take 2 (two) tablets by mouth once daily 02/19/20 25 Active docusate sodium (Colace) 100 MG capsuleIndicati ons:Closed fracture of distal end of left femur, unspecified fracture morphology, initial encounter ([facility]) Take 1 (one) capsule by [...] 2:34 AM CDT): Underwent thoracentesis twice at [facility] in [facility] with a proximally 2 L removed. If [...] packet. There is report in notes from [facility] of a CT showing a 4 [...] - 02/20/2025 11:59 PM CDT Hospital Encounter [facility] - Outside Imaging Discharge Disposition: Home or Self Care 02/17/2025 Telephone [facility] - GI [address] [place] [phone] Deny Barber MD Appointment 02/08/2025 Travel 02/07/2025 10:08 PM CDT - 02/18/2025 6:49 PM CDT Hospital Encounter [facility] 7S ACUTE [address] [place] [phone] Duarte Mitchell DO Syn, Wing-Kin, MD Befeler, Alex S, MD Gastroenterology Discharge Disposition: Rehab:Inpatient 02/07/2025 Telephone [facility] MED [address] [place] [address] Paula Duarte, DO Cirrhosis from Last 3 [...] and heating? Not hard at all 02/08/2025 [facility] - Occupational Stress [...] in a skilled nursing (including now)? No 02/08/2025 Comments No Sex [...] Office Visit [facility] - [facility] [place] [phone] Health Maintenance Due Date Last Done Comments [...] - URINE PROTEIN SCREENING 10/16/2024 INFLUENZA VACCINE (#1) 2025 07/16/2024, 2019 DIABETES-HGB A1C 08/10/2025 02/08/2025, 10/2024, 05/31/2021 DIABETES-SERUM CREATININE 02/18/20262024, 02/17/2025, 02/16/2025, Additional history exists HEPATITIS C SCREENING Completed 02/08/2025 HIB VACCINE [...] this topic Medical Devices Implanted Type Area French Cord Binder Device Identifier Shelf Expiration Date Model / Serial / Lot 8.0mm Cannulated Locking Screw Implanted:Qty: 1 on 05/31/2021 by Mary Ann Elkins MD at [facility] Left: Leg [id number] / / Plate 6 Hl Lck Precontr Fem Lt Dist Implanted:Qty: 1 on 05/31/2021 by Mary Ann Elkins MD at [facility] Left: Leg [employer] 06/24/2028 [id number] / / 5.5mm Dt Poly Locking Screws Implanted:Qty: 2 on 05/31/2021 by Mary Ann Elkins MD at [facility] Left: Leg [employer] [id number] / / 5.5mm Ft Poly Locking Screws Implanted:Qty: 2 on 05/31/2021 by Mary Ann Elkins MD at [facility] Left: Leg [id number] / / 4.5mm Solid Cortical Bone Screw Implanted:Qty: 1 on 05/31/2021 by Mary Ann Elkins MD at [facility] Left: Leg [id number] / / 4.5 Solid Cortical Bone Screw Implanted:Qty: 1 on 05/31/2021 by Mary Ann Elkins MD at [facility] Left: Leg [id number] / / 4.5 Solid Cortical Bone Screw Implanted:Qty: 1 on 05/31/2021 by Mary Ann Elkins MD at [facility] Left: Leg [id number] / / 4.5 Solid Cortical Bone Screw Implanted:Qty: 1 on 05/31/2021 by Mary Ann Elkins MD at [facility] Left: Leg [id number] / / Explanted Type Area French Cord Binder Device Identifier Shelf Expiration Date Model / Serial / Lot Wire K 1.6mm 150mm 1 End Troc Pnt Ss Explanted:Qty: 1 on 05/31/2021 by Mary Ann Elkins MD at [facility] Left: Leg [employer] [id number] / / 5.5mm Non-Locking Screws Explanted:Qty: 1 on 05/31/2021 by Mary Ann Elkins MD at [facility] Left: Leg [id number] / / 4.5 Solid Cortical Bone Screw Explanted:Qty: 1 on 05/31/2021 by Mary Ann Elkins MD at [facility] Left: Leg [id number] / / Procedures Procedure Name Priority Date/Time [...] CERULOPLASMIN AM Draw 02/08/2025 4:34 AM CDT [id number] [id number] AM Draw 2024 4:34 AM CDT [...] STAT 02/08/2025 12:1 5 AM CDT PT-INR [facility] AM Draw 02/08/2025 12:15 AM CDT XR CHEST 1VW PORTABLE STAT 02/07/2025 11:22 PM CDT Decompensated hepatic cirrhosis (HCC) from Last 3 Months Results * (ABNORMAL) GLUCOSE - POINT OF CARE (02/18/2025 5:26 PM CDT) Only the most recent of44 resultswithin the time period is included. Pathologist [facility] Glucose WB/POC 182(H) 70 - 99 mg/dL 02/18/2025 5:29 PM CDT [facility] Specimen Type Cap Fingerstick 2024 5:29 PM CDT [facility] Blood BLOOD SPECIMEN / Unknown 02/18/2025 5:26 PM CDT 02/18/2025 5:29 PM CDT us Heraclio Quinonez MD LAB - POINT OF CARE ORDERABLES Final Result [facility] [address] [place] [phone], [facility] [phone] * (ABNORMAL) PT-INR [facility] (02/18/2025 3:38 AM CDT) Only the most recent of11 resultswithin the time period is included. PT 16.8(H) 12.1 - 14.8 Seconds 02/18/2025 4:18 AM CDT [facility] INR 1.4 See Comment 02/18/2025 4:18 AM CDT [facility] Comment:The suggested therap eutic range for standard coumadin (warfarin) therapy is an INR of 2.0-3.0. For high-risk patients (Mechanical Mitral Valve Prosthesis, etc.), the suggested prophylactic therapeutic range is an INR of 2.5-3.5. Blood BLOOD SPECIMEN / Unknown Venipuncture / Unknown 02/18/2025 3:38 AM CDT 02/18/2025 3:50 AM CDT Duarte Mitchell DO LAB - COAGULATION ORDERABLES Fi nal Result [facility] [address] [place] [address], [facility] [phone] * PHOSPHATIDYLETHANOL (PETH) (02/18/2025 3:38 AM CDT) PEth 16:0/18.1 (POPEth) <10 ng/mL 02/20/2025 2:31 PM CDT [facility] ([facility]) Comment: PEth 16:0/18:1 (POPEth) Less than 10 ng/mL............Not detected Less than 20 ng/mL............Abstinence or light alcohol consumption 20 - 200 ng/mL................Moderate alcohol consumption Greater than 200 ng/mL........Heavy alcohol consumption or chronic alcohol use (Reference: Filipe Hylton and Geraldo Ward 2018 J. Forensic Sci) PEth 16:0/18.2 (PLPEth) <10 ng/mL 02/20/2025 2:31 PM CDT [facility] ([facility]) Comment:Reference ranges are not well established. EER Peth See Note 02/20/2025 2:31 PM CDT [facility] ([facility]) Comment: Authorized individuals can access the [facility] Enhanced Report with an [facility] Connect account using the following link. Your local lab can assist you in obtaining the patient report if you don't have a Connect account. [email or web address] Interpretation PEth See Comment 02/20/2025 2:31 PM CDT [facility] ([facility]) Comment: Phosphatidylethanol (PEth) is a group of [...] developed and its performance characteristics determined by [employer]. It has not been cleared or approved by the U.S. Food and Drug Administration. This test was performed in a CLIA-certified laboratory and is intended for clinical purposes. Performed By: [facility] [facility] [address] [place] [address] Internet Researcher: Koby Smith MD, PhD CLIA Number: [id number] Blood BLOOD SPECIMEN / Unknown Venipuncture / Unknown 02/18/2025 3:38 AM CDT 02/18/2025 3:51 AM CDT us Deny Barber MD LAB - CHEMISTRY ORDERABLES Final Result [facility] ([facility]) [address] [place] [address] * (ABNORMAL) CBC W AUTO DIFFERENTIAL (02/18/2025 3:38 AM CDT) Only the most recent of11 resultswithin the time period is included. WBC 6.1 4.0 - 10.7 x10E9/L 02/18/2025 3:59 AM [facility] RBC Count 2.38(L) 3.90 - 5.20 x10E12/L 02/18/2025 3:59 AM [facility] Hemoglobin 7.6(L) 11.9 - 15.8 g/dL 02/18/2025 3:59 AM [facility] Hematocrit 23.4(L) 34.8 - 46.1 % 02/18/2025 3:59 AM [facility] MCV 98.3(H) 80.0 - 98.0 fL 02/18/2025 3:59 AM [facility] MCH 31.9 26.7 - 33.6 pg 02/18/2025 3:59 AM [facility] MCHC 32.5 31.7 - 36.3 g/dL 02/18/2025 3:59 AM [facility] RDW-CV 17.1(H) 11.3 - 14.8 % 02/18/2025 3:59 AM [facility] Platelet Count 191 150 - 420 x10E9/L 02/18/2025 3:59 AM [facility] MPV 11.4 7.8 - 11.4 fL 02/18/2025 3:59 AM [facility] Neutrophil % 61.7 41.0 - 74.0 % 02/18/2025 3:59 AM [facility] Lymphocyte % 13.6(L) 17.0 - 47.0 % 02/18/2025 3:59 AM [facility] Monocyte % 9.8 3.0 - 11.0 % 02/18/2025 3:59 AM [facility] Eosinophil % 14.1(H) 0.0 - 7.0 % 02/18/2025 3:59 AM [facility] Basophil % 0.5 0.0 - 1.6 % 02/18/2025 3:59 AM [facility] Immature Granulocytes % 0.3 0.0 - 1.0 % 02/18/2025 3:59 AM [facility] Neutrophil Absolute 3.77 1.60 - 7.50 x10E9/L 02/18/2025 3:59 AM [facility] Lymphocyte Absolute 0.83(L) 1.00 - 4.40 x10E9/L 02/18/2025 3:59 AM [facility] Monocyte Absolute 0.60 0.15 - 1.00 x10E9/L 02/18/2025 3:59 AM [facility] Eosinophil Absolute 0.86(H) 0.00 - 0.60 x10E9/L 02/18/2025 3:59 AM [facility] Basophil Absolute 0.03 0.00 - 0.13 x10E9/L 02/18/2025 3:59 AM [facility] Blood BLOOD SPECIMEN / Unknown Venipuncture / Unknown 02/18/2025 3:38 AM CDT 02/18/2025 3:51 AM CDT Duarte Mitchell DO LAB - HEMATOLOGY ORDERABLES Fin al Result [facility] [address] [place] [phone], [facility] [phone] * (ABNORMAL) COMPREHENSIVE METABOLIC PANEL (02/18/2025 3:38 AM CDT) Only the most recent of11 resultswithin the time period is included. BUN 29(H) 7 - 26 mg/dL 02/18/2025 4:48 AM [facility] Creatinine 1.39(H) 0.56 - 0.96 mg/dL 02/18/2025 4:48 AM [facility] Sodium 139 136 - 145 mmol/L 02/18/2025 4:48 AM [facility] Potassium 4.1 3.5 - 4.5 mmol/L 02/18/2025 4:48 AM [facility] Chloride 101 98 - 107 mmol/L 02/18/2025 4:48 AM [facility] CO2 27 22 - 29 mmol/L 02/18/2025 4:48 AM [facility] Glucose 153(H) 70 - 99 mg/dL 02/18/2025 4:48 AM [facility] Calcium 9.5 8.4 - 10.2 mg/dL 02/18/2025 4:48 AM [facility] Protein Total 6.4 6.0 - 8.3 g/dL 02/18/2025 4:48 AM [facility] Albumin 3.9 3.4 - 5.0 g/dL 02/18/2025 4:48 AM [facility] Bilirubin Total 1.1 0.2 - 1.2 mg/dL 02/18/2025 4:48 AM [facility] Alkaline Phosphatase 310(H) 40 - 150 U/L 02/18/2025 4:48 AM [facility] ALT 10 5 - 55 U/L 02/18/2025 4:48 AM [facility] AST 17 5 - 34 U/L 02/18/2025 4:48 AM [facility] Anion Gap 11 6 - 16 02/18/2025 4:48 AM [facility] BUN/Creatinine Ratio 21 7 - 23 02/18/2025 4:48 AM [facility] Osmolality Calculated 297(H) 275 - 295 mOsm/kg 02/18/2025 4:48 AM [facility] Albumin/Globulin Ratio 1.6 1.1 - 2.3 02/18/2025 4:48 AM [facility] eGFR by CKD-EPI 41(L) >=90 mL/min/1.7 3 m2 02/18/2025 4:48 AM [facility] Blood BLOOD SPECIMEN / Unknown Venipuncture / Unknown 02/18/2025 3:38 AM CDT 02/18/2025 3:51 AM CDT us Duarte Mitchell DO LAB - CHEMISTRY ORDERABLES Manda curiel Result [facility] [address] [place] [phone], [facility] [phone] * PHOSPHORUS BLOOD (02/18/2025 3:38 AM CDT) Only the most recent of11 resultswithin the time period is included. Phosphorus 4.0 2.9 - 5.1 mg/dL 02/18/2025 4:48 AM CDT [facility] Blood BLOOD SPECIMEN / Unknown Venipuncture / Unknown 02/18/2025 3:38 AM CDT 02/18/2025 3:51 AM CDT Duarte [facility] LAB - CHEMISTRY ORDERABLES Manda l Result [facility] [address] [place] [address], [place] [phone] * MAGNESIUM BLOOD (02/18/2025 3:38 AM CDT) Only the most recent of11 resultswithin the time period is included. Magnesium 2.0 1.6 - 2.6 mg/dL 02/18/2025 4:48 AM CDT [facility] Blood BLOOD SPECIMEN / Unknown Venipuncture / Unknown 02/18/2025 3:38 AM CDT 02/18/2025 3:51 AM CDT [facility] LAB - CHEMISTRY ORDERABLES Manda l Result Performing Organization Address City/[facility]/ZIP Co de Phone Number [facility] [address] [place] [address], [place] [phone] * XR Abdomen Kub Portable (02/17/2025 12:49 PM CDT) Only the most recent of2 resultswithin the time period is included. Anatomical Region Laterality Modality Abdomen Digital Radiogra phy 02/17/2025 1:20 PM CDT Impressions 02/17/2025 8:51 PM CDT IMPRESSION: Non-obstructive bowel gas pattern. > Dictated by Jeremy Meyer DO (Food And Nutrition Services Assistant), 02/17/2025 1:45 PM. IMelinda MD have personally reviewed and interpreted this examination/study. > Interpreting Provider: Melinda Calderon MD on 02/17/2025 8:51 PM Narrative 02/17/2025 8:51 PM CDT PROCEDURE: XR ABDOMEN KUB PORTABLE, DATE/TIME OF EXAM: 02/17/2025 12:49 PM, LOCATION [facility] INDICATION: R10.84: Generalized abdominal pain ADDITIONAL [...] PORTABLE, DATE/TIME OF EXAM: 02/17/2025 12:49PM, LOCATION [facility] INDICATION: R10.84: Generalized abdominal pain ADDITIONAL CLINICAL INFORMATION: Ordering Provider Reason For Exam: abdominal pain COMPARISON: Abdominal x-ray 02/15/2025 FINDINGS: There is no dilatation of small or large bowel. Evaluation for pneumoperitoneum is limited on supine imaging. Degenerative changes ofthe lumbar spine.. Partially visualized right hip total arthroplasty. Small right perfusion. IMPRESSION: Non-obstructive bowel gas pattern. > Dictated by Jeremy Meyer DO (Food And Nutrition Services Assistant), 02/17/2025 1:45 PM. IMelinda MD have personally reviewed and interpreted this examination/study. > Interpreting Provider: Melinda Calderon MD on 02/17/2025 8:51 PM Ollie Rice MD DIAGNOSTIC IMAGING ORDERABLES Fi nal Result * CULTURE URINE (02/12/2025 1:43 PM CDT) Culture Urine 10,000-50,000 CFU/mL urogenital xi EUNICE 02/13/2025 10:46 PM CDT [facility] Urine URINE SPECIMEN OBTAINED BY CLEAN CATCH PROCEDURE / Unknown Collection / Unknown 02/12/2025 1:43 PM CDT 02/12/2025 1:55 PM CDT us Duarte Mitchell DO LAB - MICROBIOLOGY ORDERABLES F inal Result [facility] [address] [place] [address], [facility] [phone] * (ABNORMAL) PROCALCITONIN LEVEL (02/12/2025 1:29 PM CDT) PROCALCITONIN 0.35(H) <=0.10 ng/mL 02/12/2025 2:30 PM CDT [facility] Blood BLOOD SPECIMEN / Unknown Lab Venipuncture / Unknown 02/12/2025 1:29 PM CDT 02/12/2025 1:32 PM CDT Narrative [facility] - 02/12/2025 2:30 PM CDT The [...] Change in Procalcitonin Calculator is available at [email or web address] If clinical picture has not improved and PCT remains high, reevaluate and consider treatment failure or other causes. us Duarte Mitchell DO LAB - CHEMISTRY ORDERABLES Manda l Result [facility] [address] [place] [address], [place] [phone] * (ABNORMAL) URINALYSIS W/MICROSCOPIC NO CULTURE (02/12/2025 9:33 AM CDT) Color UA Yellow Yellow, Straw 02/12/2025 9:54 AM CDT [facility] Clarity UA Clear Clear 02/12/2025 9:54 AM [facility] Glucose UA 4+(A) Normal 02/12/2025 9:54 AM [facility] Bilirubin UA Negative Negative 02/12/2025 9:54 AM [facility] Ketone UA Negative Negative 02/12/2025 9:54 AM [facility] Specific [place] UA 1.015 1.005 - 1.030 02/12/2025 9:54 AM [facility] Blood UA Negative Negative 02/12/2025 9:54 AM [facility] pH UA 5.5 5.0 - 9.0 pH 02/12/2025 9:54 AM [facility] Protein UA Negative Negative 02/12/2025 9:54 AM [facility] Urobilinogen UA Normal Normal mg/dL 02/12/2025 9:54 AM [facility] Nitrite UA Negative Negative 02/12/2025 9:54 AM [facility] Leukocyte Esterase UA 75 YISEL/uL(A) Negative 02/12/2025 9:54 AM [facility] RBC UA 0-2 0 - 5 # /hpf 02/12/2025 9:54 AM [facility] WBC UA 0-5 0 - 5 # /hpf 02/12/2025 9:54 AM [facility] Bacteria UA Trace(A) None Seen 02/12/2025 9:54 AM [facility] Squamous Epithelial Cells 0-2 0 - 5 /hpf 02/12/2025 9:54 AM [facility] Mucus UA 1+ /LPF 02/12/2025 9:54 AM [facility] Budding Yeast Moderate(A) None seen /hpf 02/12/2025 9:54 AM [facility] Hyaline Casts 3-5(A) 0 - 2 /LPF 02/12/2025 9:54 AM [facility] Calcium Oxalate Crystals Occasional( A) None seen /HPF 02/12/2025 9:54 AM [facility] Urine URINE SPECIMEN OBTAINED BY CLEAN CATCH PROCEDURE / Unknown Collection / Unknown 02/12/2025 9:33 AM CDT 02/12/2025 9:42 AM CDT Duarte Mitchell DO LAB - URINALYSIS ORDERABLES Fin al Result Performing Organization Address [facility]/ZIP Co de Phone Number [address] [address], [place] [phone] * SODIUM URINE RANDOM (02/12/2025 9:33 AM CDT) Sodium Urine <20 Not Established mmol/L 02/12/2025 10:09 AM CDT [facility] Urine URINE SPECIMEN OBTAINED BY CLEAN CATCH PROCEDURE / Unknown Collection / Unknown 02/12/2025 9:33 AM CDT 02/12/2025 9:42 AM CDT Duarte Mitchell DO LAB - URINE CHEMISTRY ORDERABLE S Final Result Performing Organization Address [facility] Co de Phone Number [address] [address], [place] [phone] * UREA NITROGEN URINE RANDOM (02/12/2025 9:33 AM CDT) Urea Nitrogen Random Urine 416 Not Established mg/dL 02/12/2025 10:09 AM CDT [facility] Urine URINE SPECIMEN OBTAINED BY CLEAN CATCH PROCEDURE / Unknown Collection / Unknown 02/12/2025 9:33 AM CDT 02/12/2025 9:42 AM CDT Duarte Mitchell DO LAB - URINE CHEMISTRY ORDERABLE S Final Result Performing Organization Address [facility]/ZIP Co de Phone Number [address] [address], [place] [phone] * CREATININE URINE RANDOM (02/12/2025 9:33 AM CDT) Creatinine Urine 110.93 Not Established mg/dL 02/12/2025 10:09 AM CDT [facility] Urine URINE SPECIMEN OBTAINED BY CLEAN CATCH PROCEDURE / Unknown Collection / Unknown 02/12/2025 9:33 AM CDT 02/12/2025 9:42 AM CDT Duarte Mitchell DO LAB - URINE CHEMISTRY ORDERABLE S Final Result [address] [place] [address], [facility] [phone] * XR Chest 1Vw Portable (02/12/2025 5:00 [...] Melinda Calderon MD on 02/12/2025 1:01 PM Duarte Mitchell DO DIAGNOSTIC IMAGING ORDERABLES F [...] DATE/TIME OF EXAM: 02/09/2025 10:54 AM, LOCATION [facility] INDICATION: R74.8: Elevated alkaline phosphatase level [...] W3D, DATE/TIME OF EXAM:02/09/2025 10:54 AM, LOCATION [facility] INDICATION: R74.8: Elevated alkaline phosphatase level [...] NAAT QUANT (02/08/2025 4:34 AM CDT) Pathologist [facility] Hepatitis C Antibody Non-react faizan Non-reac tive 02/08/2025 6:02 AM CDT [facility] Comment:Hepatitis C Antibody screen indicates [...] LAB - CHEMISTRY ORDERABLES Manda l Result [facility] [address] [place] [address], [place] [phone] * SMOOTH MUSCLE ANTIBODY W REFLEX TITER (02/08/2025 4:34 AM CDT) F-Actin Antibody IgG 6 0 - 19 Units 02/10/2025 5:19 PM CDT [facility] [employer] ([facility]) Comment: If F-Actin (Smooth Muscle) Antibody, IgG [...] suspicion for AIH is strong. Performed By: [employer] [address] [place] [address] Internet Researcher: Koby Smith MD, PhD CLIA Number: [id number] Blood BLOOD SPECIMEN / Unknown Lab Venipuncture / Unknown 02/08/2025 4:34 AM CDT 02/08/2025 5:02 AM CDT Duarte Mitchell DO LAB - SEROLOGY ORDERABLES Final Result [facility]) [address] [place] [address], [facility] * MITOCHONDRIAL ANTIBODY SCREEN (02/08/2025 4:34 AM CDT) Mitochondrial M2 Antibody 4.9 0.0 - 24.9 Units 02/10/2025 5:19 PM CDT [facility] ([facility]) Comment: REFERENCE INTERVAL: Mitochondrial (M2) Antibody, IgG [...] does not rule out PBC. Performed By: [facility] [employer] [address] [place] [address] Internet Researcher: Koby Smith MD, PhD CLIA Number: [id number] Blood BLOOD SPECIMEN / Unknown Lab Venipuncture / Unknown 02/08/2025 4:34 AM CDT 02/08/2025 5:02 AM CDT Duarte Mitchell DO LAB - CHEMISTRY ORDERABLES Manda l Result Performing Organization Address [facility] Co de Phone Number [facility] ([facility]) [address] [place] [address] * (ABNORMAL) HEPATITIS B SURFACE ANTIBODY QUANT (02/08/2025 4:34 AM CDT) Hepatitis B Virus Surface Antibody Reactive( A) Non-react faizan 02/08/2025 6:02 AM CDT [facility] Comment: > 12 mIU/mL Hepatitis B surface Antibody (HBsAb). Reactive for HBsAb - individual is considered immune to Hepatitis B Virus infection. Hepatitis B Surface Antibody Quantitative 12.6(H) <8.0 mIU/mL 02/08/2025 6:02 AM CDT [facility] Comment: Hepatitis B Surface Antibody Numeric Result Interpretation: Nonreactive: <8.0 mIU/mL Indeterminate: 8.0 - 12.0 mIU/mL Reactive: >12.0 mIU/mL Blood BLOOD SPECIMEN / Unknown Lab Venipuncture / Unknown 02/08/2025 4:34 AM CDT 02/08/2025 5:02 AM CDT Narrative [facility] - 02/08/2025 6:02 AM CDT This assay should not be used for blood, plasma, or tissue donor screening. This assay is not recommended for neonates born to HBV-infected or suspected HBV-infected mothers. Duarte Mitchell DO LAB - SEROLOGY ORDERABLES Final Result Performing Organization Address City/[facility]/ZIP Co de Phone Number [address] [address], [facility] [phone] * LUIS CARLOS BLOOD SCREEN W/REFLEX TITER (02/08/2025 4:34 AM CDT) [facility] LUIS CARLOS IgG None Detected None Detected 02/11/2025 12:10 AM CDT [facility] ([facility]) Comment: If suspicion of connective tissue disease is strong and LUIS CARLOS EIA is negative, consider testing for LUIS CARLOS by IFA ([id number]). INTERPRETIVE INFORMATION: Anti-Nuclear Antibodies (LUIS CARLOS), IgG [...] dsDNA, histones, SS-A (Ro), SS-B (La), Ward, Ward/LOGGING WORKER, Scl-70, Sylvia-1, centromeric proteins, other antigens extracted from the HEp-2 cell nucleus. LUIS CARLOS CALE assays have been reported to have lower sensitivities than LUIS CARLOS IFA for systemic autoimmune rheumatic diseases (SARD). Negative results do not necessarily rule out SARD. Performed By: [facility] [employer] [address] [place] [address] Internet Researcher: Koby Smith MD, PhD CLIA Number: [id number] Blood BLOOD SPECIMEN / Unknown Lab Venipuncture / Unknown 02/08/2025 4:34 AM CDT 02/08/2025 5:02 AM CDT Duarte Mitchell DO LAB - CHEMISTRY ORDERABLES Manda l Result [facility] [employer] [facility]) [address] [place] [address], [facility] * HEMOGLOBIN A1C (02/08/2025 4:34 AM CDT) [facility] Hemoglobin A1c 5.4 <=5.6 % 02/08/2025 8:35 AM CDT [facility] Estimated Average Glucose 108 mg/dL 02/08/2025 8:35 AM CDT [facility] Comment: HbA1c Interpretation: Normal : < 5.7% Pre-diabetes: 5.7-6.4% Diabetes: Equal to or greater than 6.5% Test results diagnostic of diabetes should be repeated for confirmation. Treatment target values recommended by ADA and other clinical organizations should be used to evaluate metabolic control in patients. Reference: [place] [employer], Standards of Care in Diabetes -2020 In patients 70 years and older consider HbA1c target range of 7.0-7.5% (Reference: Phu Pisano et al. DARRYLDA. 2012) The Sebia assay for the measurement of HbA1c is a National Glycohemoglobin Standardization Program (NGSP) certified method. Blood BLOOD SPECIMEN / Unknown Lab Venipuncture / Unknown 02/08/2025 4:34 AM CDT 02/08/2025 5:07 AM CDT Duarte Mitchell LAB - CHEMISTRY ORDERABLES Manda l Result Performing Organization Address City/[facility]/ZIP Co de Phone Number [address] [address], [facility] [phone] * CERULOPLASMIN (02/08/2025 4:34 AM CDT) Ceruloplasmin 29 20 - 60 mg/dL 02/08/2025 5:48 AM CDT [facility] Blood BLOOD SPECIMEN / Unknown Lab Venipuncture / Unknown 02/08/2025 4:34 AM CDT 02/08/2025 5:02 AM CDT [facility] LAB - CHEMISTRY ORDERABLES Manda l Result [address] [address], [facility] [phone] * [id number] BLOOD (02/08/2025 4:34 AM CDT) Vywsx-0-Sxleih ypsin 189 90 - 200 mg/dL 02/08/2025 5:48 AM CDT [facility] Blood BLOOD SPECIMEN / Unknown Lab Venipuncture / Unknown 02/08/2025 4:34 AM CDT 02/08/2025 5:02 AM CDT Duarte Mitchell DO LAB - CHEMISTRY ORDERABLES Manda l Result Performing Organization Address City/[facility]/ZIP Co de Phone Number [address] [address], [place] [phone] * HEPATITIS B CORE ANTIBODY TOTAL (02/08/2025 4:34 AM CDT) [facility] HBc Antibody Total Non-reacti ve Non-reacti ve 02/08/2025 6:02 AM CDT [facility] Blood BLOOD SPECIMEN / Unknown Lab Venipuncture / Unknown 02/08/2025 4:34 AM CDT 02/08/2025 5:02 AM CDT Duarte Mitchell DO LAB - CHEMISTRY ORDERABLES Manda l Result Performing Organization Address [facility]/ZIP Co de Phone Number [address] [address], [place] [phone] * HEPATITIS B SURFACE ANTIGEN W RFLX CONFIRMATION (02/08/2025 4:34 AM CDT) [facility] Hepatitis B Virus Surface Antigen Non-reacti ve Non-reacti ve 02/08/2025 6:02 AM CDT [facility] Blood BLOOD SPECIMEN / Unknown Lab Venipuncture / Unknown 02/08/2025 4:34 AM CDT 02/08/2025 5:02 AM CDT Duarte Mitchell DO LAB - CHEMISTRY ORDERABLES Manda l Result Performing Organization Address City/[facility]/ZIP Co de Phone Number [address] [address], [place] [phone] * (ABNORMAL) IRON + TRANSFERRIN PANEL (02/08/2025 4:34 AM CDT) [facility] Iron 210(H) 40 - 150 ug/dL 02/08/2025 5:48 AM CDT [facility] Transferrin 156(L) 174 - 382 mg/dL 02/08/2025 5:48 AM CDT [facility] Transferrin Saturation % 100(H) 16 - 50 % 02/08/2025 5:48 AM CDT [facility] TIBC Calculated 195(L) 240 - 450 ug/dL 02/08/2025 5:48 AM CDT [facility] Blood BLOOD SPECIMEN / Unknown Lab Venipuncture / Unknown 02/08/2025 4:34 AM CDT 02/08/2025 5:02 AM CDT Duarte Mitchell DO LAB - CHEMISTRY ORDERABLES Manda l Result Performing Organization Address City/[facility]/ZIP Co de Phone Number [address] [address], [place] [phone] * (ABNORMAL) FERRITIN (02/08/2025 4:34 AM CDT) Ferritin 816(H) 13 - 204 ng/mL 02/08/2025 6:02 AM CDT [facility] Blood BLOOD SPECIMEN / Unknown Lab Venipuncture / Unknown 02/08/2025 4:34 AM CDT 02/08/2025 5:02 AM CDT Duarte Mitchell DO LAB - CHEMISTRY ORDERABLES Manda l Result Performing Organization Address [facility]/ZIP Co de Phone Number [address] [address], [place] [phone] * (ABNORMAL) GGT (02/08/2025 4:33 AM CDT) GGT 270(H) 9 - 64 Units/L 02/08/2025 5:52 AM CDT [facility] Blood BLOOD SPECIMEN / Unknown Lab Venipuncture / Unknown 02/08/2025 4:33 AM CDT 02/08/2025 5:11 AM CDT Duarte Mitchell DO LAB - CHEMISTRY ORDERABLES Manda l Result [facility] [address] [place] [address], [place] [phone] * FOLATE (02/08/2025 4:33 AM CDT) Folate 18.9 7.0 - 31.4 ng/mL 02/08/2025 6:17 AM CDT [facility] Blood BLOOD SPECIMEN / Unknown Lab Venipuncture / Unknown 02/08/2025 4:33 AM CDT 02/08/2025 5:11 AM CDT Duarte Mitchell LAB - CHEMISTRY ORDERABLES Manda l Result Performing Organization Address City/[facility]/ZIP Co de Phone Number [address] [address], [facility] [phone] * (ABNORMAL) VITAMIN B12 (02/08/2025 4:33 AM CDT) Vitamin B12 1,495(H) 213 - 816 pg/mL 02/08/2025 6:17 AM CDT [facility] Blood BLOOD SPECIMEN / Unknown Lab Venipuncture / Unknown 02/08/2025 4:33 AM CDT 02/08/2025 5:11 AM CDT Duarte Mitchell DO LAB - CHEMISTRY ORDERABLES Manda l Result Performing Organization Address City/[facility]/ZIP Co de Phone Number [address] [address], [facility] [phone] from Last 3 Months Additional Health Concerns Infection Onset Date Last Indicated C DIFF Comment:Added from external infection. Source: [facility]. 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
[2025-05-04] MEDS: CYCLOBENZAPRINE HCL 10 MG TABLET PO (11:27)
[2025-05-04] MEDS: HYDROcodone/acetaminophen (*CRX) 5-325 MG TABLET 1 TAB PO (11:27)
[2025-05-04 12:31] VITALS: BP 125/51; PULSE 93; RESP 18; O2SAT 100
[2025-05-04 13:05] LABS: Hematocrit 35.0 % (37.0-47.0); Hemoglobin 11.8 g/dL (12.0-15.0); Immature Granulocyte Percent A 1.1 % (0-0.5); Lymphocytes Absolute Auto 0.37 K/mm3 (0.9-3.2); Mean Corpuscular HGB Conc 33.7 g/dl (32-36); Mean Corpuscular Hemoglobin 32.2 pg (26-34); Mean Corpuscular Volume 95.6 fl (80-100); Nucleated Red Blood Cells Absolute Auto 0.000 K/mm3 (0.0-0.012); Nucleated Red Blood Cells Perc 0.0 % (0.0-0.2); Platelet Count Result 167 k/mm3 (150-375); Red Blood Count 3.66 M/mm3 (4.2-5.4); White Blood Count 7.2 K/mm3 (4.5-10.0)
[2025-05-04 13:15] LABS: Alanine Aminotransferase 14 U/L (6-35); Albumin Level 4.1 g/dL (3.5-5.1); Alkaline Phosphatase 264 U/L (38-126); Anion Gap 12 mmol/L (4-12); Aspartate Amino Transferase 32 U/L (14-36); Bilirubin,Total 1.6 mg/dL (0.2-1.3); Blood Urea Nitrogen 24 mg/dL (7-17); Calcium 9.6 mg/dL (8.4-10.2); Carbon Dioxide 24 mmol/L (22-30); Chloride 89 mmol/L (98-107); Estimated CRCL calculation 36 ml/min; Estimated Glomerular Filt Rate 47; Glucose 139 mg/dL (65-110); Potassium 3.5 mmol/L (3.4-5.0); Sodium 125 mmol/L (137-145); Total Protein 7.4 g/dL (6.3-8.2)
--- NOTE | 2025-05-04 15:33 | P.HP_ITS ---
H&P: HPI History of Present Illness Date/Time: 05/04/25 15:33 Chief Complaint: Low Back Pain Narrative: 70 y/o F with PMH of cirrhosis, alcohol abuse, diastolic dysfunction, diabetes, chronic hyponatremia, chronic anemia, and chronic venous insufficiency with lipodermatosclerosis of the bilateral lower extremities. The patient presents here from home via EMS for further evaluation of low back pain. She has a history of chronic back pain and typically utilizes a wheelchair. However this morning she was unable to get out of bed due to the pain. She denies any precipitating trauma or injury prior to worsening back pain. She denies associated saddle anesthesia, numbness in her lower extremities, or new weakness in her lower extremities. Initial VS at presentation: 97.6? F, HR 96, RR 20, 127/59, and 96% on RA. ED workup showed: No leukocytosis, hemoglobin 11.8, sodium 125 (previously 128 on 03/25/2025), creatinine 1.15 and GFR 47 (at baseline), glucose 139. CT thoracic/lumbar showed small right pleural effusion, acute/subacute mild compression fractures at T9/T10/T12, 5 mm ground-glass in 50 mm mixed ground- glass solid right upper lobe pulmonary nodules that have increased in size slightly since October (rec biopsy or PET/CT), no fracture or traumatic malalignment detected in the lumbar spine. Review of Systems Review of Systems: All systems reviewed & are unremarkable except as noted in HPI and below PMFSH Past Medical History Medical History Alcoholic cirrhosis of liver Chronic venous insufficiency of lower extremity Stage 3a chronic kidney disease Shingles ANTHONY (obstructive sleep apnea) Osteoporosis Gram-negative bacteremia Anemia of chronic disease Ascites Obesity (BMI 30-39.9) Hyperlipidemia, unspecified Carotid artery disease Alcohol abuse Osteoarthritis Diastolic dysfunction ECHO 10/2023: normal LV systolic function, estimated EF of 60-65%, abnormal diastolic dysfunction. Left-sided carotid artery disease US 01/2021: 50 to 69% stenosis of the left ICA. Orthostatic hypotension on midodrine, chronic hypotension, previously caused syncope and frequent falls and subsequent fractures. Insulin dependent type 2 diabetes mellitus A1C 5.1% 08/2024 Chronic hyponatremia Eczema Periprosthetic fracture of femur following total replacement of hip (01/2020) Non operative treatment. GERD (gastroesophageal reflux disease) Surgical History Surgical History Status post open reduction with internal fixation of fracture (05/30/21) ORIF of comminuted intra-articular fracture of the distal left femur, done at [facility]. History of hysterectomy (2005) Due to uterine fibroids and endometriosis. History of bilateral cataract extraction History of lumbar surgery (2005) L1-L3. History of right hip replacement (2005) Per Dr. Curiel in [place]. Family History Family History Father Heart attack Mother Diabetes mellitus COPD (chronic obstructive pulmonary disease) Hypertension Afib Sibling Amputation above knee Diabetes mellitus Father , At age 50 Acute myocardial infarction Sibling , At age 50 Pancreatic cancer Social History Social History Social History: The patient lives in her own home in [place]. She has been twice, her 1st and she has since her 2nd . She has no children. She moved to this area within the last couple of years from [place] to be close to her 3 remaining siblings. 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 She has recently retired.She smoked up to 2 packs of cigarettes a day before quitting in 2005. She drinks 2 mixed drinks a day, each containing a shot of vodka which equals out to about 1 L to 1.7 L of vodka a week. She denies illicit substance use. Surrogate decision maker: Miladys Moserfrederick, sister. Code status: Full code. Smoking packs per day: 2 Smoking cigarettes per day: 40.0 Years smoked: 30 Smoking pack-years: 60.00 Smoking status: Never smoker Smokeless tobacco user: chewing tobacco Second hand tobacco smoke exposure: No Alcohol intake: never Drinks per week: 14 Substance use: never Substance use type: does not use Do You Feel Safe in your Home?: Yes Lack of Transportation: No Lack of Food: Never True Current Housing: I Have Housing Concerned About Future Housing: No Difficulty Paying Gas/Electric Bills: No Difficulty Paying for Meds: No Currently Unemployed: No Education: Decline to Answer Difficulty w/ Childcare or Family Care: No Living arrangements: alone Occupation/Education: retired Gender identity (if verbalized by the patient): Female Sexual Orientation (if Verbalized by the Patient): Straight or Heterosexual Spiritual care concerns: No Meds Home Medications and Allergies Home Medications ?Medication ?Instructions ?Recorded ?Confirmed ?Type fluticasone propionate 50 1 spray intranasal DAILY PRN 08/16/20 05/04/25 History mcg/actuation nasal allergies spray,suspension thiamine HCl (vitamin B1) 100 mg 100 mg PO QAM #30 tabs 08/18/20 05/04/25 Rx tablet (Vitamin B-1) zqtlbwhklosa-Bx-frjv-minerals 1 tablet PO DAILY #30 tabs 01/16/21 05/04/25 Rx (Multiple Vitamin, Womens tablet) blood sugar diagnostic #360 ea 10/31/22 05/04/25 Rx empagliflozin 10 mg tablet 10 mg PO DAILY #30 tabs 10/26/23 05/04/25 Rx (Jardiance) alendronate 70 mg tablet 70 mg PO WEEKLY #12 tabs 12/12/23 05/04/25 Rx ascorbate calcium (vitamin C) 500 500 mg PO DAILY 06/20/24 05/04/25 History mg tablet folic acid 800 mcg tablet 0.8 mg PO DAILY 06/20/24 05/04/25 History pen needle, diabetic 32 gauge x #360 ea 09/11/24 05/04/25 Rx 5/32 (BD Muriel 2nd Gen Pen Needle) blood-glucose sensor (Dexcom G7 #3 ea 09/13/24 05/04/25 Rx Sensor device) potassium chloride 10 mEq 10 meq PO DAILY #90 caps 09/30/24 05/04/25 Rx capsule,extended release ferrous sulfate 325 mg (65 mg 325 mg PO DAILY 01/16/25 05/04/25 History iron) tablet (Leonard-Time) insulin lispro 100 unit/mL 3 unit subcut TID 01/16/25 05/04/25 History subcutaneous pen (Humalog KwikPen (U-100) Insulin) lanolin alcohols-mineral 1 applic topical DAILY 01/16/25 05/04/25 History oil-w.petrolatum-ceresin topical cream spironolactone 25 mg tablet 50 mg PO QAM 01/31/25 05/04/25 History lidocaine 5 % topical patch 1 patch topical DAILY 03/05/25 05/04/25 History bumetanide 1 mg tablet 1 mg PO BID #60 tabs 04/01/25 05/04/25 Rx metolazone 2.5 mg tablet 2.5 mg PO DAILY 04/01/25 05/04/25 History sodium chloride 1 gram tablet 1,000 mg PO DAILY 04/01/25 05/04/25 History tramadol 50 mg tablet 50 mg PO Q8H PRN pain #30 tabs 04/22/25 05/04/25 Rx atorvastatin 10 mg tablet 10 mg PO QAM #90 tabs 04/28/25 05/04/25 Rx baclofen 10 mg tablet 10 mg PO BID #20 tabs 05/02/25 05/04/25 Rx insulin glargine 100 unit/mL (3 15 unit subcut QPM 05/04/25 05/04/25 History mL) subcutaneous pen (Lantus Solostar U-100 Insulin) methocarbamol 750 mg tablet 750 mg PO TID 05/04/25 05/04/25 History Allergies Allergy/AdvReac Type Severity Reaction Status Date / Time codeine AdvReac Unknown Headache Verified 05/04/25 10:29 Vital Signs Vital Signs - 24 hr 05/04/25 10:24 05/04/25 10:41 05/04/25 12:31 Temperature 97.6 F Pulse Rate 96 85 93 Respiratory Rate 20 17 18 Blood Pressure 127/59 L 128/62 125/51 L Pulse Oximetry 96 98 100 Oxygen Delivery Room Air Exam Narrative: pressure ulcer to right heel and left buttock. woody/erythema to BLE, no edema. chronically ill appearing. Const: General: comfortable and no acute distress Other: , female, nontoxic appearance HENMT: Face/Nose/Sinus: Normal nares present Mouth: Yes moist mucous membranes Eyes: General: appearance normal, both eyes and all related structures Sclera: sclerae normal Pupils: Equal, round and reactive pupils present EOM: EOMs intact bilaterally Resp: Effort & Inspection: normal respiratory effort Auscultation: clear to auscultation bilaterally Cardio: Rate: regular rate Rhythm: regular rhythm Other: S1-S2 present without murmur, rub, ectopy GI: Other: Abdomen soft, nondistended, nontender. Normoactive bowel sounds in all quadrants. Skin: General skin exam: normal color and no rashes or lesions noted Other: Pressure ulceration to right heel and left buttock, no signs of infection Neuro: Speech: normal speech Motor exam (neuro): 5/5 motor strength present throughout Sensory Exam: normal sensation Other: A&O x4 Extrem: Other: woody appearance and mild erythema to bilateral lower extremities Psych: Mental Status: mental status grossly normal Affect: normal affect Other: Good insight and judgment, pleasant H&P: Results Labs Labs: Short CBC 05/04/25 Range/Units 12:55 WBC 7.2 (4.5-10.0) K/mm3 Hgb 11.8 L D (12.0-15.0) g/dL Hct 35.0 L (37.0-47.0) % Plt Count 167 (150-375) k/mm3 BMP 05/04/25 12:57 Sodium 125 L Potassium 3.5 Chloride 89 L Carbon Dioxide 24 BUN 24 H Creatinine 1.15 H Glucose 139 H Calcium 9.6 Liver Function 05/04/25 Range/Units 12:57 Total Bilirubin 1.6 H (0.2-1.3) mg/dL AST 32 (14-36) U/L ALT 14 (6-35) U/L Alkaline Phosphatase 264 H (38-126) U/L Albumin 4.1 (3.5-5.1) g/dL Assessment and Plan Assessment and plan (1) Acute on chronic back pain: Code(s): M54.9 - Dorsalgia, unspecified; G89.29 - Other chronic pain Status: Acute Assessment and Plan: - CT thoracic/lumbar, 05/04: Small right pleural effusion. Acute/subacute mild compression fractures at T9, T10, and T12. 5 mm groundglass and 15 mm mixed groundglass/solid right upper lobe pulmonary nodules that have increased in size slightly since the October comparison CT. Recommend biopsy or PET/CT. No acute fracture or traumatic malalignment detected in the lumbar spine. - patient largely utilizes WC. no precipitating trauma. unable to care for herself independently in current state prompting attempt for placement from the ED to acute rehab, unsuccessful. admitted for pain control, PT/OT and placement. 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 (current) use of insulin Code(s): E11.9 - Type 2 diabetes mellitus without complications Status: Chronic Assessment and Plan: - hypoglycemia protocol - POC blood glucose ACHS - home medication: Jardiance, Lantus 15u SQ, Lispro 3u TID - correct regimen ordered - high dose TIDWM - A1C 4.6% on 03/25/2025 (4) Chronic kidney disease, stage 3: Qualifiers: Chronic kidney disease stage 3 subtype: stage 3b (GFR 30-44) Qualified Code(s): N18.32 - Chronic kidney disease, stage 3b Code(s): N18.30 - Chronic kidney disease, stage 3 unspecified Status: Chronic Assessment and Plan: - creatinine 1.15, BUN 24, GFR 24 upon initial evaluation - baseline creatinine: 1.5-2.0 - trend renal function - trend electrolytes, correct as needed (5) Chronic anemia: Code(s): D64.9 - Anemia, unspecified Status: Chronic Assessment and Plan: - Hgb 11.8, previously 8.0 on 02/07 - secondary to chronic disease - transfuse if <7 - monitor Plan History of alcohol abuse, still has occasional use. Reports she does not withdrawal when she drinks. Monitor. Diet: Diabetic GI Prophylaxis: N/a DVT Prophylaxis: SCDs IV fluids: None Lines/Tubes: Peripheral IV Code Status: Full code Quality VTE Prophylaxis VTE prophylaxis: mechanical ordered Hospitalist MIPS Advance Care Plan I have confirmed that the patient's Advanced Care Plan is present, code status is documented, or surrogate decision maker is listed in patient medical record.: Yes Medication Reconciliation I have utilized all available resources to obtain, update and review the patients current medications (includes all prescriptions, OTC, herbals, cannabis, and nutritional supplements).: Yes
--- NOTE | 2025-05-04 16:11 | PC.NURSE ---
pt is not able to urinate at this time
[2025-05-04 16:19] VITALS: BMI 23.8
--- NOTE | 2025-05-04 16:19 | PC.NURSE ---
This patient, Lou Islas, was admitted [facility] Room [facility]01. Patient/family oriented to hospital policies and general routines including ID bracelet, bed and alarms, visiting hours, pain management, procedures, bathroom and other care routines, personal items, smoking policy, room service/diet, and visiting hours. Information on how to activate the Rapid Response Team has been discussed. Patient/Family are encouraged to report perceived risks to care and to ask questions if they do not understand what they are told or what they should do.
[2025-05-04 16:48] VITALS: BP 128/53; PULSE 97; RESP 16; TEMP 36.3; O2SAT 100
[2025-05-04] MEDS: traMADol HCL (*CRX) 50 MG TABLET PO (17:27)
[2025-05-04] MEDS: BACLOFEN 10 MG TABLET PO (17:28)
[2025-05-04] MEDS: INSULIN ASPART (*BKC) 100 UNITS/ML SUB-Q (17:31)
[2025-05-04] MEDS: BUMETANIDE 1 MG TABLET PO (17:33)
--- NOTE | 2025-05-04 17:46 | WNDPHOTO ---
PHOTO ONLY - See Nursing Notes and/ or assessments for documentation.
--- NOTE | 2025-05-04 17:50 | WNDPHOTO ---
PHOTO ONLY - See Nursing Notes and/ or assessments for documentation.
[2025-05-04] MEDS: INSULIN GLARGINE (*BKC) 100 UNITS/ML 15 UNITS SUB-Q (21:11)
[2025-05-04 21:12] VITALS: BP 117/57; PULSE 96; RESP 18; TEMP 36.4; O2SAT 99
[2025-05-04] MEDS: ACETAMINOPHEN 500 MG TABLET PO (21:13)
[2025-05-04 22:34] LABS: Add Urine Microscopic? NO; Appearance Urine Clear (Clear); Glucose Urine UA 3+ mg/dL (Negative); Leukocyte Esterase Ur Negative LEU/UL (Negative); Nitrate Urine Negative (Negative); Specific Grav Ur 1.012 (1.001-1.035)
[2025-05-05] MEDS: traMADol HCL (*CRX) 50 MG TABLET PO ×2 (04:47→11:44)
[2025-05-05 05:49] VITALS: BP 112/55; PULSE 89; RESP 16; TEMP 36.6; O2SAT 100
[2025-05-05 08:00] VITALS: PULSE 89; RESP 16; O2SAT 100
[2025-05-05] MEDS: ATORVASTATIN 10 MG TABLET PO (08:05)
[2025-05-05] MEDS: FERROUS SULFATE 325 MG TABLET DR PO (08:05)
[2025-05-05] MEDS: THERAPEUTIC MULTIVITAMINS/MINERALS TAB (*BKC) 1 TABLET PO (08:05)
[2025-05-05] MEDS: THIAMINE HCL 100 MG TABLET PO (08:05)
[2025-05-05] MEDS: FOLIC ACID 0.4 MG TABLET 0.8 MG PO (08:05)
[2025-05-05] MEDS: BUMETANIDE 1 MG TABLET PO ×2 (08:05→17:12)
[2025-05-05] MEDS: EMPAGLIFLOZIN 10 MG TABLET PO (08:05)
[2025-05-05] MEDS: SODIUM CHLORIDE 1 GM TABLET PO (08:05)
[2025-05-05] MEDS: BACLOFEN 10 MG TABLET PO ×2 (08:06→17:12)
[2025-05-05] MEDS: EUCERIN CREAM 454 GM JAR 1 APPLIC TOPICAL (08:06)
[2025-05-05] MEDS: ASCORBIC ACID 500 MG TABLET PO (08:06)
[2025-05-05] MEDS: POTASSIUM CHLORIDE 10 MEQ ER TABLET PO (08:06)
[2025-05-05] MEDS: INSULIN ASPART (*BKC) 100 UNITS/ML SUB-Q ×3 (08:07→17:14)
[2025-05-05 11:15] VITALS: BMI 23.8
--- NOTE | 2025-05-05 13:28 | WPDNEUROSGCN ---
Assessment and Plan Assessment and plan (1) Thoracic compression fracture: Code(s): S22.000A - Wedge compression fracture of unspecified thoracic vertebra, initial encounter for closed fracture Status: Acute Assessment and Plan: assessment: Jennyfer is a very pleasant 70-year-old with acute T9, T10, T12 thoracic pathologic compression fractures sustained atraumatically, likely secondary to patient's known osteoporosis. There is no retropulsion or high-grade spinal canal stenosis associated with this. She is neurovascularly intact. There are right upper lobe nodules for which radiology is recommending biopsy or PET-CT. Plan: I had a thorough discussion with the patient. We reviewed her exam and imaging findings. Given the lack of retropulsion and the patient has normal neuro exam, I would recommend non operative management of the fractures in a TLSO brace. She has already received this. She should wear it at all times when out of bed or her chair. We discussed that she may want to use it when she sits in her wheelchair if she is going to be moving around in the chair, bending, twisting, etc.. I do want her to limit bending and twisting and to avoid lifting anything more than 10 lb. I am going to see her outpatient in about 6 weeks with AP and lateral thoracic x-rays just prior to that visit. I would recommend medical workup of her lung nodules to rule out malignancy as these types of atraumatic fractures can occasionally be seen with metastatic spine disease. The patient verbalized understanding and agreement with all of the above plans and has no unanswered questions at this time. Consult date: 05/05/25 Time Seen: 11:45 HPI: Lou Islas is a 70 year old female admitted with T9, T10, and T12 compression fractures sustained atraumatically. The patient states that she has been having back pain for a couple of weeks and had been treated with tramadol and baclofen but that her pain worsened acutely when she woke up yesterday morning and she was not able to sit up or get out of bed due to the severity. She called an ambulance and was transported to our ED where workup revealed the above fractures. The patient denies any falls, injuries, or other traumas. She does have a known history of osteoporosis and has had bilateral hip/femur fractures previously. She did have an episode of urinary incontinence when she was unable to get out of bed, but denies any further bowel or bladder incontinence and states that she can feel when she needs to use the restroom. She denies saddle anesthesia or lower extremity pain, weakness, or numbness beyond her normal neuropathy. She lives alone and uses a wheelchair at baseline most of the time. Her pain has been so severe that she has been mostly unable to take care of herself. She is interested in going to inpatient rehab. She has already received her TLSO brace. [facility] Past Medical History Medical History Alcoholic cirrhosis of liver Chronic venous insufficiency of lower extremity Stage 3a chronic kidney disease Shingles ANTHONY (obstructive sleep apnea) Osteoporosis Gram-negative bacteremia Anemia of chronic disease Ascites Obesity (BMI 30-39.9) Hyperlipidemia, unspecified Carotid artery disease Alcohol abuse Osteoarthritis Diastolic dysfunction ECHO 10/2023: normal LV systolic function, estimated EF of 60-65%, abnormal diastolic dysfunction. Left-sided carotid artery disease US 01/2021: 50 to 69% stenosis of the left ICA. Orthostatic hypotension on midodrine, chronic hypotension, previously caused syncope and frequent falls and subsequent fractures. Insulin dependent type 2 diabetes mellitus A1C 5.1% 08/2024 Chronic hyponatremia Eczema Periprosthetic fracture of femur following total replacement of hip (01/2020) Non operative treatment. GERD (gastroesophageal reflux disease) Surgical History Surgical History Status post open reduction with internal fixation of fracture (05/30/21) ORIF of comminuted intra-articular fracture of the distal left femur, done at [facility]. History of hysterectomy (2005) Due to uterine fibroids and endometriosis. History of bilateral cataract extraction History of lumbar surgery (2005) L1-L3. History of right hip replacement (2005) Per Dr. Curiel in [place]. Family History Family History Father Heart attack Mother Diabetes mellitus COPD (chronic obstructive pulmonary disease) Hypertension Afib Sibling Amputation above knee Diabetes mellitus Father , At age 50 Acute myocardial infarction Sibling , At age 50 Pancreatic cancer Social History Social History Social History: The patient lives in her own home in [place]. She has been twice, her 1st and she has since her 2nd . She has no children. She moved to this area within the last couple of years from [place] to be close to her 3 remaining siblings. She worked from home for a [employer] doing [employer] and she has a master's degree in statistics. She has recently retired.She smoked up to 2 packs of cigarettes a day before quitting in 2005. She drinks 2 mixed drinks a day, each containing a shot of vodka which equals out to about 1 L to 1.7 L of vodka a week. She denies illicit substance use. Surrogate decision maker: Miladys Jensen, sister. Code status: Full code. Smoking packs per day: 2 Smoking cigarettes per day: 40.0 Years smoked: 30 Smoking pack-years: 60.00 Smoking status: Never smoker Smokeless tobacco user: chewing tobacco Second hand tobacco smoke exposure: No Alcohol intake: never Drinks per week: 14 Substance use: never Substance use type: does not use Do You Feel Safe in your Home?: Yes Lack of Transportation: No Lack of Food: Never True Current Housing: I Have Housing Concerned About Future Housing: No Difficulty Paying Gas/Electric Bills: No Difficulty Paying for Meds: No Currently Unemployed: No Education: Decline to Answer Difficulty w/ Childcare or Family Care: No Living arrangements: alone Occupation/Education: retired Gender identity (if verbalized by the patient): Female Sexual Orientation (if Verbalized by the Patient): Straight or Heterosexual Spiritual care concerns: No Meds Home Medications and Allergies Home Medications ?Medication ?Instructions ?Recorded ?Confirmed ?Type fluticasone propionate 50 1 spray intranasal DAILY PRN 08/16/20 05/04/25 History mcg/actuation nasal allergies spray,suspension thiamine HCl (vitamin B1) 100 mg 100 mg PO QAM #30 tabs 08/18/20 05/04/25 Rx tablet (Vitamin B-1) zmmgejwvmler-Ok-buhc-minerals 1 tablet PO DAILY #30 tabs 01/16/21 05/04/25 Rx (Multiple Vitamin, Womens tablet) blood sugar diagnostic #360 ea 10/31/22 05/04/25 Rx empagliflozin 10 mg tablet 10 mg PO DAILY #30 tabs 10/26/23 05/04/25 Rx (Jardiance) alendronate 70 mg tablet 70 mg PO WEEKLY #12 tabs 12/12/23 05/04/25 Rx ascorbate calcium (vitamin C) 500 500 mg PO DAILY 06/20/24 05/04/25 History mg tablet folic acid 800 mcg tablet 0.8 mg PO DAILY 06/20/24 05/04/25 History pen needle, diabetic 32 gauge x #360 ea 09/11/24 05/04/25 Rx 32 (BD Muriel 2nd Gen Pen Needle) blood-glucose sensor (Funium G7 #3 ea 09/13/24 05/04/25 Rx Sensor device) potassium chloride 10 mEq 10 meq PO DAILY #90 caps 09/30/24 05/04/25 Rx capsule,extended release ferrous sulfate 325 mg (65 mg 325 mg PO DAILY 01/16/25 05/04/25 History iron) tablet (Leonard-Time) insulin lispro 100 unit/mL 3 unit subcut TID 01/16/25 05/04/25 History subcutaneous pen (Humalog KwikPen (U-100) Insulin) lanolin alcohols-mineral 1 applic topical DAILY 01/16/25 05/04/25 History oil-w.petrolatum-ceresin topical cream spironolactone 25 mg tablet 50 mg PO QAM 01/31/25 05/04/25 History lidocaine 5 % topical patch 1 patch topical DAILY 03/05/25 05/04/25 History bumetanide 1 mg tablet 1 mg PO BID #60 tabs 04/01/25 05/04/25 Rx metolazone 2.5 mg tablet 2.5 mg PO DAILY 04/01/25 05/04/25 History sodium chloride 1 gram tablet 1,000 mg PO DAILY 04/01/25 05/04/25 History tramadol 50 mg tablet 50 mg PO Q8H PRN pain #30 tabs 04/22/25 05/04/25 Rx atorvastatin 10 mg tablet 10 mg PO QAM #90 tabs 04/28/25 05/04/25 Rx baclofen 10 mg tablet 10 mg PO BID #20 tabs 05/02/25 05/04/25 Rx insulin glargine 100 unit/mL (3 15 unit subcut QPM 05/04/25 05/04/25 History mL) subcutaneous pen (Lantus Solostar U-100 Insulin) methocarbamol 750 mg tablet 750 mg PO TID 05/04/25 05/04/25 History Allergies Allergy/AdvReac Type Severity Reaction Status Date / Time codeine AdvReac Unknown Headache Verified 05/04/25 10:29 Vital Signs Vital Signs - 24 hr 05/04/25 16:48 05/04/25 21:11 05/04/25 21:12 Temperature 97.4 F L 97.6 F Pulse Rate 97 96 Respiratory Rate 16 18 Blood Pressure 128/53 L 117/57 L Pulse Oximetry 100 99 Oxygen Delivery Room Air 05/05/25 05:49 05/05/25 08:00 Temperature 97.8 F Pulse Rate 89 89 Respiratory Rate 16 16 Blood Pressure 112/55 L Pulse Oximetry 100 100 Oxygen Delivery Room Air Exam Narrative: Patient is A&O x4. Speech is clear and fluent. Cranial nerves intact. Full bilateral lower extremity strength to manual muscle testing. Sensation to light touch is decreased in the feet and is otherwise intact. No ankle clonus. She is tender to palpation over the distal thoracic spine. Results Labs 05/04/25 12:55 05/04/25 12:57 Labs: Urine 05/04/25 Range/Units 22:26 Urine Color Yellow (Yellow) Urine Appearance Clear (Clear) Urine pH 8.5 (5.0-9.0) Ur Specific [place] 1.012 (1.001-1.035) Urine Protein Negative (Negative) mg/dL Urine Glucose (UA) 3+ H (Negative) mg/dL Imaging My impression: CT of the thoracic and lumbar spine demonstrates fractures T9, T10, and T12 which are likely acute/subacute. There is no significant retropulsion into the spinal canal. There is a stable chronic compression fracture At T4. There are no lumbar spine fractures, but there is degenerative changes present throughout the lumbar spine with moderate to severe spinal canal stenosis at L4-L5 secondary to degenerative changes. There is 5 mm right upper lobe ground glass nodule at a 1.5 cm mixed solid and ground glass nodule in the right upper lobe. The radiology report recommends a biopsy of the lungs or PET-CT.
--- NOTE | 2025-05-05 13:43 | P.PNIM_ITS ---
Progress Note: A&P Assessment and Plan (1) Acute on chronic back pain: Code(s): M54.9 - Dorsalgia, unspecified; G89.29 - Other chronic pain Status: Acute Assessment and Plan: CT thoracic/lumbar, 05/04: Small right pleural effusion. Acute/subacute mild compression fractures at T9, T10, and T12. 5 mm groundglass and 15 mm mixed groundglass/solid right upper lobe pulmonary nodules that have increased in size slightly since the October comparison CT. Recommend biopsy or PET/CT. No acute fracture or traumatic malalignment detected in the lumbar spine. --Uses a wheelchair at baseline. no precipitating trauma. unable to care for herself independently in current state prompting attempt for placement from the ED to acute rehab, unsuccessful. admitted for pain control, PT/OT and placement. - Stop tramadol, start oxycodone 5-7.5mg, dilaudid prn - consulted neuro surgery, placed a brace --Continue methocarbamol, stop baclofen --Schedule tylenol, gabapentin 300mg hs (2) Chronic hyponatremia: Code(s): E87.1 - Hypo-osmolality and hyponatremia Status: Chronic Assessment and Plan: - chronic - Na 125, previously 128 on 03/25 - NaCL tab, 1G daily, increase to BID - monitor BMP (3) Diabetes mellitus: Qualifiers: Diabetes mellitus complication status: without complication Diabetes mellitus butcher head insulin use: with long-term use Diabetes mellitus type: type 2 Qualified Code(s): E11.9 - Type 2 diabetes mellitus without complications; Z79.4 - correction (current) use of insulin Code(s): E11.9 - Type 2 diabetes mellitus without complications Status: Chronic Assessment and Plan: - hypoglycemia protocol - POC blood glucose ACHS - home medication: Jardiance, Lantus 15u SQ, Lispro 3u TID - correct regimen ordered - high dose TIDWM - A1C 4.6% on 03/25/2025 (4) Chronic kidney disease, stage 3: Qualifiers: Chronic kidney disease stage 3 subtype: stage 3b (GFR 30-44) Qualified Code(s): N18.32 - Chronic kidney disease, stage 3b Code(s): N18.30 - Chronic kidney disease, stage 3 unspecified Status: Chronic Assessment and Plan: - creatinine 1.15, BUN 24, GFR 24 upon initial evaluation - baseline creatinine: 1.5-2.0 - trend renal function - trend electrolytes, correct as needed (5) Chronic anemia: Code(s): D64.9 - Anemia, unspecified Status: Chronic Assessment and Plan: - Hgb 11.8, previously 8.0 on 02/07 - secondary to chronic disease - transfuse if <7 - monitor (6) Alcoholism: Code(s): F10.20 - Alcohol dependence, uncomplicated Status: Chronic Assessment and Plan: History of alcohol abuse, still has occasional use. Reports she does not wi thdrawal when she drinks. Monitor. --Monitor for symptoms (7) Pulmonary nodule: Code(s): R91.1 - Solitary pulmonary nodule Status: Acute Assessment and Plan: Multiple pulmonary nodules on CT, increased in size --Discuss biopsy Plan Diet: Diabetic GI Prophylaxis: N/a DVT Prophylaxis: SCDs IV fluids: None Lines/Tubes: Peripheral IV Code Status: Full code Time Spent With Patient Time: 55 minutes Subjective Date/time seen: 05/05/25 13:43 Interval history: Having a lot of pain to low back, spasms Weight 125, stable Pulmonary nodules increased in size since 05/04 Review of Systems Review of Systems: All systems reviewed & are unremarkable except as noted in HPI and below Exam Narrative: . General - Awake and alert. No acute distress. Chronically ill appearing Eyes - PERRLA, EOM intact ENT - No thrush, No erythema Neck - No noticeable or palpable swelling Lymph Nodes - No lymphadenopathy Cardiovascular - RRR no m/r/g, no JVD Lungs: Clear to auscultation, No wheezing, use of accessory muscles, no crackles Skin - Skin warm and dry, no wounds or rashes. pressure ulcer to right heel and left buttock Abdomen - Normal bowel sounds, abdomen soft and nontender Extremities - No edema, cyanosis or clubbing. woody/erythema to BLE Musculoskeletal - 5/5 strength, normal range of motion, no swollen or erythematous joints. Neurological ? Alert and oriented x 3, CN 2-12 grossly intact. Psych: Normal mood and affect Objective Data Vital Signs Vital Signs: Vital Signs - 24 hr 05/04/25 16:48 05/04/25 21:11 05/04/25 21:12 Temperature 97.4 F L 97.6 F Pulse Rate 97 96 Respiratory Rate 16 18 Blood Pressure 128/53 L 117/57 L Pulse Oximetry 100 99 Oxygen Delivery Room Air 05/05/25 05:49 05/05/25 08:00 Temperature 97.8 F Pulse Rate 89 89 Respiratory Rate 16 16 Blood Pressure 112/55 L Pulse Oximetry 100 100 Oxygen Delivery Room Air Intake/Output Intake/Output: Intake & Output 05/02/25 05/03/25 05/04/25 05/05/25 23:59 23:59 23:59 23:59 Intake Total 120 400 Output Total 0 Balance 120 400 Meds/Results Medications: Active Medications Generic Name Dose Route Start Last Admin Trade Name Freq PRN Reason Stop Dose Admin Acetaminophen 1,000 mg 05/05/25 17:00 Acetaminophen 500 Mg Tablet PO TID NEIL Alendronate Sodium 70 mg 05/06/25 06:30 Alendronate Sodium 70 Mg Tablet PO Tu@0630 NEIL Ascorbic Acid 500 mg 05/05/25 09:00 05/05/25 08:06 Ascorbic Acid 500 Mg Tablet PO 500 mg DAILY NEIL Administration Atorvastatin Calcium 10 mg 05/05/25 09:00 05/05/25 08:05 Atorvastatin 10 Mg Tablet PO 10 mg QAM NEIL Administration Baclofen 10 mg 05/04/25 17:00 05/05/25 08:06 Baclofen 10 Mg Tablet PO 10 mg BID NEIL Administration Bumetanide 1 mg 05/04/25 17:00 05/05/25 08:05 Bumetanide 1 Mg Tablet PO 1 mg BID NEIL Administration Dextrose 12.5 gm 05/04/25 16:57 Dextrose 50% 25 Gm/50 Ml Syringe IV PUSH PRN PRN Hypoglycemia Protocol Empagliflozin 10 mg 05/05/25 09:00 05/05/25 08:05 Empagliflozin 10 Mg Tablet PO 10 mg DAILY NEIL Administration Ferrous Sulfate 325 mg 05/05/25 09:00 05/05/25 08:05 Ferrous Sulfate [address] PO 325 mg DAILY NEIL Administration Fluticasone Propionate 1 spray 05/04/25 16:59 Fluticasone Propionate 0.05% Na Spr 16 Gm Btl (*Bkc) NASAL DAILY PRN allergies Folic Acid 0.8 mg 05/05/25 09:00 05/05/25 08:05 Folic Acid 0.4 Mg Tablet PO 0.8 mg DAILY NEIL Administration Gabapentin 300 mg 05/05/25 21:00 Gabapentin 300 Mg Capsule PO HS NEIL Glucagon 1 mg 05/04/25 16:57 Glucagon For Inj 1 Mg Vial IM PRN PRN Hypoglycemia Protocol Glucose 15 gm 05/04/25 16:57 Glucose Oral Gel 15 Gm Of Glucse In 37.5 Gm Tube PO PRN PRN Hypoglycemia Protocol Dextrose 1,000 mls @ 100 mls/hr 05/04/25 16:57 Dextrose 5% 1,000 Ml IVPB PRN PRN Hypoglycemia Protocol Insulin Aspart 4 - 8 units 05/04/25 17:00 05/05/25 11:45 Insulin Aspart (*Bkc) 100 Units/Ml SUB-Q Not Given TIDWM NEIL Protocol Insulin Aspart 3 units 05/04/25 17:20 05/05/25 11:46 Insulin Aspart (*Bkc) 100 Units/Ml SUB-Q 3 units ACINSULIN NEIL Administration Insulin Glargine 15 units 05/04/25 21:00 05/04/25 21:11 Insulin Glargine (*Bkc) 100 Units/Ml SUB-Q 15 units HS NEIL Administration Lidocaine 1 patch 05/05/25 09:00 05/05/25 08:17 Lidocaine 5% Patch TOPICAL 1 patch DAILY NEIL Administration Methocarbamol 750 mg 05/04/25 17:00 05/05/25 08:05 Methocarbamol 750 Mg Tablet PO 750 mg TID NEIL Administration Metolazone 2.5 mg 05/05/25 09:00 05/05/25 08:06 Metolazone 2.5 Mg Tablet PO 2.5 mg DAILY NEIL Administration Multi-Ingred Cream/Lotion/Oil/Oint 1 applic 05/04/25 17:23 Eucerin Cream 454 Gm Jar TOPICAL PRN PRN DRESSING CHANGES Multi-Ingred Cream/Lotion/Oil/Oint 1 applic 05/05/25 09:00 05/05/25 08:06 Eucerin Cream 454 Gm Jar TOPICAL 1 applic DAILY NEIL Administration Multivitamins/Calcium 1 tablet 05/05/25 09:00 05/05/25 08:05 Therapeutic Multivitamins/Minerals Tab (*Bkc) PO 1 tablet DAILY NEIL Administration Potassium Chloride 10 meq 05/05/25 09:00 05/05/25 08:06 Potassium Chloride 10 Meq Er Tablet PO 10 meq DAILY NEIL Administration Sodium Chloride 1 gm 05/05/25 09:00 05/05/25 08:05 Sodium Chloride 1 Gm Tablet PO 1 gm DAILY NEIL Administration Thiamine HCl 100 mg 05/05/25 09:00 05/05/25 08:05 Thiamine Hcl 100 Mg Tablet PO 100 mg QAM NEIL Administration Radiology Results: ITS Impressions Thoracic/Lumbar Spine CT 05/04/25 14:04 IMPRESSION: Small right pleural effusion. Acute/subacute mild compression fractures at T9, T10, and T12. 5 mm groundglass and 15 mm mixed groundglass/solid right upper lobe pulmonary nodules that have increased in size slightly since the October comparison CT. Recommend biopsy or PET/CT. No acute fracture or traumatic malalignment detected in the lumbar spine. Labs Labs: Laboratory Results - last 24 hr 05/04/25 05/04/25 05/04/25 16:41 20:19 22:26 POC Capillary Glucose 148 H 174 H Urine Color Yellow Urine Appearance Clear Urine pH 8.5 Ur Specific [place] 1.012 Urine Protein Negative Urine Glucose (UA) 3+ H Urine Ketones Negative Ur Blood (Man) Negative Urine Nitrate Negative Urine Bilirubin Negative Urine Urobilinogen 0.2 Leukocyte Esterase Rfl Negative 05/05/25 05/05/25 08:02 11:36 POC Capillary Glucose 97 134 H Urine Color Urine Appearance Urine pH Ur Specific [place] Urine Protein Urine Glucose (UA) Urine Ketones Ur Blood (Man) Urine Nitrate Urine Bilirubin Urine Urobilinogen Leukocyte Esterase Rfl Quality VTE Prophylaxis VTE prophylaxis: mechanical ordered Hospitalist MIPS Advance Care Plan I have confirmed that the patient's Advanced Care Plan is present, code status is documented, or surrogate decision maker is listed in patient medical record.: Yes Medication Reconciliation I have utilized all available resources to obtain, update and review the patients current medications (includes all prescriptions, OTC, herbals, cannabis, and nutritional supplements).: Yes
[2025-05-05 14:00] VITALS: BP 101/49; PULSE 80; RESP 16; TEMP 36.2; O2SAT 99
[2025-05-05 15:04] LABS: Hematocrit 37.1 % (37.0-47.0); Hemoglobin 12.8 g/dL (12.0-15.0); Immature Granulocyte Percent A 0.4 % (0-0.5); Lymphocytes Absolute Auto 0.35 K/mm3 (0.9-3.2); Mean Corpuscular HGB Conc 34.5 g/dl (32-36); Mean Corpuscular Hemoglobin 33.2 pg (26-34); Mean Corpuscular Volume 96.4 fl (80-100); Nucleated Red Blood Cells Absolute Auto 0.000 K/mm3 (0.0-0.012); Nucleated Red Blood Cells Perc 0.0 % (0.0-0.2); Platelet Count Result 186 k/mm3 (150-375); Red Blood Count 3.85 M/mm3 (4.2-5.4); White Blood Count 8.0 K/mm3 (4.5-10.0)
[2025-05-05] MEDS: HYDROmorphone HCL INJ (*CRX) 2 MG/ML VIAL 0.5 MG IV PUSH (15:06)
[2025-05-05 15:35] LABS: Alanine Aminotransferase 18 U/L (6-35); Albumin Level 4.1 g/dL (3.5-5.1); Alkaline Phosphatase 301 U/L (38-126); Anion Gap 10 mmol/L (4-12); Aspartate Amino Transferase 38 U/L (14-36); Bilirubin,Total 1.4 mg/dL (0.2-1.3); Blood Urea Nitrogen 30 mg/dL (7-17); Calcium 9.5 mg/dL (8.4-10.2); Carbon Dioxide 27 mmol/L (22-30); Chloride 88 mmol/L (98-107); Estimated CRCL calculation 28 ml/min; Estimated Glomerular Filt Rate 35; Glucose 202 mg/dL (65-110); Potassium 3.1 mmol/L (3.4-5.0); Sodium 125 mmol/L (137-145); Total Protein 7.6 g/dL (6.3-8.2)
[2025-05-05] MEDS: ACETAMINOPHEN 500 MG TABLET 1000 MG PO (17:12)
[2025-05-05 20:13] VITALS: BP 122/56; PULSE 95; RESP 16; TEMP 36.3; O2SAT 98
[2025-05-05] MEDS: GABAPENTIN 300 MG CAPSULE PO (21:28)
[2025-05-05] MEDS: SENNA/DOCUSATE SODIUM TABLET 1 TAB PO (21:28)
[2025-05-05] MEDS: POTASSIUM CHLORIDE 20 MEQ ER TABLET PO (21:29)
[2025-05-05] MEDS: INSULIN GLARGINE (*BKC) 100 UNITS/ML 15 UNITS SUB-Q (21:30)
[2025-05-05] MEDS: oxyCODONE HCL (*CRX) 5 MG TAB IR PO (21:43)
[2025-05-05] MEDS: oxyCODONE HCL (*CRX) 2.5 MG TAB IR PO (21:44)
[2025-05-06] VITALS (8 sets, daily range): BP systolic 105–132; BP diastolic 45–70; PULSE 92–101; RESP 16–18; TEMP 35.9–37.2; O2SAT 94–100
--- NOTE | 2025-05-06 06:54 | PC.NURSE ---
Assessment and documentation completed by Bobbi Stein (RN-pending), documentation confirmed accurate by this RN.
[2025-05-06] MEDS: POTASSIUM CHLORIDE 10 MEQ ER TABLET PO (08:21)
[2025-05-06] MEDS: ATORVASTATIN 10 MG TABLET PO (08:21)
[2025-05-06] MEDS: THERAPEUTIC MULTIVITAMINS/MINERALS TAB (*BKC) 1 TABLET PO (08:22)
[2025-05-06] MEDS: ASCORBIC ACID 500 MG TABLET PO (08:22)
[2025-05-06] MEDS: FERROUS SULFATE 325 MG TABLET DR PO (08:22)
[2025-05-06] MEDS: SODIUM CHLORIDE 1 GM TABLET PO ×2 (08:22→17:12)
[2025-05-06] MEDS: THIAMINE HCL 100 MG TABLET PO (08:22)
[2025-05-06] MEDS: BUMETANIDE 1 MG TABLET PO (08:22)
[2025-05-06] MEDS: EMPAGLIFLOZIN 10 MG TABLET PO (08:22)
[2025-05-06] MEDS: ACETAMINOPHEN 500 MG TABLET 1000 MG PO ×2 (08:22→17:12)
[2025-05-06] MEDS: FOLIC ACID 0.4 MG TABLET 0.8 MG PO (08:22)
[2025-05-06] MEDS: EUCERIN CREAM 454 GM JAR 1 APPLIC TOPICAL (08:23)
[2025-05-06] MEDS: HYDROmorphone HCL INJ (*CRX) 2 MG/ML VIAL 0.5 MG IV PUSH ×2 (08:26→22:15)
[2025-05-06] MEDS: ONDANSETRON INJ 4 MG/2 ML VIAL IV PUSH ×2 (09:57→17:22)
[2025-05-06 10:00] LABS: Hematocrit 36.6 % (37.0-47.0); Hemoglobin 12.3 g/dL (12.0-15.0); Immature Granulocyte Percent A 0.6 % (0-0.5); Lymphocytes Absolute Auto 0.55 K/mm3 (0.9-3.2); Mean Corpuscular HGB Conc 33.6 g/dl (32-36); Mean Corpuscular Hemoglobin 32.2 pg (26-34); Mean Corpuscular Volume 95.8 fl (80-100); Nucleated Red Blood Cells Absolute Auto 0.000 K/mm3 (0.0-0.012); Nucleated Red Blood Cells Perc 0.0 % (0.0-0.2); Platelet Count Result 186 k/mm3 (150-375); Red Blood Count 3.82 M/mm3 (4.2-5.4); White Blood Count 8.3 K/mm3 (4.5-10.0)
[2025-05-06 10:30] LABS: Alanine Aminotransferase 15 U/L (6-35); Albumin Level 4.0 g/dL (3.5-5.1); Alkaline Phosphatase 320 U/L (38-126); Anion Gap 11 mmol/L (4-12); Aspartate Amino Transferase 31 U/L (14-36); Bilirubin,Total 1.4 mg/dL (0.2-1.3); Blood Urea Nitrogen 34 mg/dL (7-17); Calcium 9.3 mg/dL (8.4-10.2); Carbon Dioxide 27 mmol/L (22-30); Chloride 89 mmol/L (98-107); Estimated CRCL calculation 30 ml/min; Estimated Glomerular Filt Rate 38; Glucose 128 mg/dL (65-110); Magnesium 1.4 mg/dL (1.6-2.3); Potassium 3.1 mmol/L (3.4-5.0); Sodium 127 mmol/L (137-145); Total Protein 7.5 g/dL (6.3-8.2)
[2025-05-06 10:38] LABS: Creatine Kinase < 20 U/L (30-135)
[2025-05-06] MEDS: KCL 20 MEQ/D5/0.9% SOD CHL 1,000 ML 75 ML IV CONT (10:48)
--- NOTE | 2025-05-06 11:05 | P.PNIM_ITS ---
Progress Note: A&P Assessment and Plan (1) Acute on chronic back pain: Code(s): M54.9 - Dorsalgia, unspecified; G89.29 - Other chronic pain Status: Acute Assessment and Plan: CT thoracic/lumbar, 05/04: Small right pleural effusion. Acute/subacute mild compression fractures at T9, T10, and T12. 5 mm groundglass and 15 mm mixed groundglass/solid right upper lobe pulmonary nodules that have increased in size slightly since the October comparison CT. Recommend biopsy or PET/CT. No acute fracture or traumatic malalignment detected in the lumbar spine. --Uses a wheelchair at baseline. no precipitating trauma. unable to care for herself independently in current state prompting attempt for placement from the ED to acute rehab, unsuccessful. admitted for pain control, PT/OT and placement. - Stop tramadol, start oxycodone 5-7.5mg, dilaudid prn - consulted neuro surgery, placed a brace --stop methocarbamol, resume 5mg q8 baclofen --Scheduled tylenol>650 TID, gabapentin 300mg hs (2) Chronic hyponatremia: Code(s): E87.1 - Hypo-osmolality and hyponatremia Status: Chronic Assessment and Plan: - chronic - Na 125, previously 128 on 03/25 - NaCL tab, 1G daily, increase to BID - monitor BMP (3) Diabetes mellitus: Qualifiers: Diabetes mellitus complication status: without complication Diabetes mellitus fdc insulin use: with fdc use Diabetes mellitus type: type 2 Qualified Code(s): E11.9 - Type 2 diabetes mellitus without complications; Z79.4 - MCC (current) use of insulin Code(s): E11.9 - Type 2 diabetes mellitus without complications Status: Chronic Assessment and Plan: - hypoglycemia protocol - POC blood glucose ACHS - home medication: Jardiance, Lantus 15u SQ, Lispro 3u TID - correct regimen ordered - high dose TIDWM - A1C 4.6% on 03/25/2025 (4) Chronic kidney disease, stage 3: Qualifiers: Chronic kidney disease stage 3 subtype: stage 3b (GFR 30-44) Qualified Code(s): N18.32 - Chronic kidney disease, stage 3b Code(s): N18.30 - Chronic kidney disease, stage 3 unspecified Status: Chronic Assessment and Plan: - creatinine 1.15, BUN 24, GFR 24 upon initial evaluation - baseline creatinine: 1.5-2.0 - trend renal function - trend electrolytes, correct as needed (5) Chronic anemia: Code(s): D64.9 - Anemia, unspecified Status: Chronic Assessment and Plan: - Hgb 11.8, previously 8.0 on 02/07 - secondary to chronic disease - transfuse if <7 - monitor (6) Alcoholism: Code(s): F10.20 - Alcohol dependence, uncomplicated Status: Chronic Assessment and Plan: History of alcohol abuse, still has occasional use. Reports she does not withdrawal when she drinks. Monitor. --CIWA, s/p 1 dose of ativan and slept, but still symptomatic with tremors --LIbrium prn (7) Pulmonary nodule: Code(s): R91.1 - Solitary pulmonary nodule Status: Acute Assessment and Plan: Multiple pulmonary nodules on CT, increased in size --Willing to discuss biopsy --Consider PET CT (8) Double vision: Code(s): H53.2 - Diplopia Status: Acute Assessment and Plan: Binocular, also associated with tremors --Thiamine 500mg IV q8h x3 --Treating possible alcohol withdrawal, ativan 0.25 x1, continue librium --Neurology consult --Head CT, MRI brain (9) Vomiting: Code(s): R11.10 - Vomiting, unspecified Status: Acute Assessment and Plan: Zofran prn Plan Diet: Diabetic GI Prophylaxis: N/a DVT Prophylaxis: SCDs IV fluids: None Lines/Tubes: Peripheral IV Code Status: Full code Time Spent With Patient Time: 57 minutes Subjective Date/time seen: 05/06/25 11:05 Interval history: Having a lot of pain to low back, spasms, tremors Weight 125, stable Pulmonary nodules increased in size since 05/04 Reporting double vision, binocular. Resolves with one eye closed Vomiting today, replacing mag and potassium Review of Systems Review of Systems: All systems reviewed & are unremarkable except as noted in HPI and below Exam Narrative: . General - Awake and alert. No acute distress. Chronically ill appearing Eyes - PERRLA, EOM intact ENT - No thrush, No erythema Neck - No noticeable or palpable swelling Lymph Nodes - No lymphadenopathy Cardiovascular - RRR no m/r/g, no JVD Lungs: Clear to auscultation, No wheezing, use of accessory muscles, no crackles Skin - Skin warm and dry, no wounds or rashes. pressure ulcer to right heel and left buttock Abdomen - Normal bowel sounds, abdomen soft and nontender Extremities - No edema, cyanosis or clubbing. woody/erythema to BLE Musculoskeletal - 5/5 strength, normal range of motion, no swollen or erythematous joints. Neurological ? Alert and oriented x 3, Tremors to both hands when arms outstretched Psych: Normal mood and affect Objective Data Vital Signs Vital Signs: Vital Signs - 24 hr 05/05/25 13:52 05/05/25 14:00 05/05/25 14:51 Temperature 97.2 F L Pulse Rate 80 Respiratory Rate 16 Blood Pressure 101/49 L Pulse Oximetry 99 Oxygen Delivery Room Air Room Air 05/05/25 20:13 05/06/25 05:50 05/06/25 08:00 Temperature 97.4 F L 96.7 F L Pulse Rate 95 92 92 Respiratory Rate 16 16 16 Blood Pressure 122/56 L 113/45 L Pulse Oximetry 98 97 97 Oxygen Delivery Room Air 05/06/25 09:32 Temperature Pulse Rate 95 Respiratory Rate Blood Pressure 132/70 Pulse Oximetry 95 Oxygen Delivery Intake/Output Intake/Output: Intake & Output 05/03/25 05/04/25 05/05/25 05/06/25 23:59 23:59 23:59 23:59 Intake Total 120 640 0 Output Total 400 220 Balance 120 240 -220 Meds/Results Medications: Active Medications Generic Name Dose Route Start Last Admin Trade Name Freq PRN Reason Stop Dose Admin Acetaminophen 1,000 mg 05/05/25 17:00 05/06/25 08:22 Acetaminophen 500 Mg Tablet PO 1,000 mg TID NEIL Administration Ascorbic Acid 500 mg 05/05/25 09:00 05/06/25 08:22 Ascorbic Acid 500 Mg Tablet PO 500 mg DAILY NEIL Administration Atorvastatin Calcium 10 mg 05/05/25 09:00 05/06/25 08:21 Atorvastatin 10 Mg Tablet PO 10 mg QAM NEIL Administration Bumetanide 1 mg 05/04/25 17:00 05/06/25 08:22 Bumetanide 1 Mg Tablet PO 1 mg BID NEIL Administration Dextrose 12.5 gm 05/04/25 16:57 Dextrose 50% 25 Gm/50 Ml Syringe IV PUSH PRN PRN Hypoglycemia Protocol Empagliflozin 10 mg 05/05/25 09:00 05/06/25 08:22 Empagliflozin 10 Mg Tablet PO 10 mg DAILY NEIL Administration Ferrous Sulfate 325 mg 05/05/25 09:00 05/06/25 08:22 Ferrous Sulfate [address] PO 325 mg DAILY NEIL Administration Fluticasone Propionate 1 spray 05/04/25 16:59 Fluticasone Propionate 0.05% Na Spr 16 Gm Btl (*Bkc) NASAL DAILY PRN allergies Folic Acid 0.8 mg 05/05/25 09:00 05/06/25 08:22 Folic Acid 0.4 Mg Tablet PO 0.8 mg DAILY NEIL Administration Gabapentin 300 mg 05/05/25 21:00 05/05/25 21:28 Gabapentin 300 Mg Capsule PO 300 mg HS NEIL Administration Glucagon 1 mg 05/04/25 16:57 Glucagon For Inj 1 Mg Vial IM PRN PRN Hypoglycemia Protocol Glucose 15 gm 05/04/25 16:57 Glucose Oral Gel 15 Gm Of Glucse In 37.5 Gm Tube PO PRN PRN Hypoglycemia Protocol Hydromorphone HCl 0.5 mg 05/05/25 13:45 05/06/25 08:26 Hydromorphone Hcl Inj (*Crx) 2 Mg/Ml Vial IV PUSH 0.5 mg Q3H PRN Administration Breakthrough Pain Dextrose 1,000 mls @ 100 mls/hr 05/04/25 16:57 Dextrose 5% 1,000 Ml IVPB PRN PRN Hypoglycemia Protocol Potassium Chloride/Dextrose/Sod Cl 1,000 mls @ 75 mls/hr 05/06/25 10:00 05/06 10:48 Kcl 20 Meq/D5/0.9% Sod Chl IV CONT 75 mls/hr .[id number] NEIL Administration Potassium Chloride 40 meq/ 520 mls @ 130 mls/hr 05/06/25 11:15 Sodium Chloride IVPB 05/06/25 15:14 ONCE ONE Magnesium Sulfate 2 gm in 50 mls @ 25 mls/hr 05/06/25 11:15 Magnesium Sulf 2 Gm/Water 50ml IVPB 05/06/25 13:14 ONCE ONE Insulin Aspart 4 - 8 units 05/04/25 17:00 05/06/25 08:36 Insulin Aspart (*Bkc) 100 Units/Ml SUB-Q Not Given TIDWM NEIL Protocol Insulin Aspart 3 units 05/04/25 17:20 05/06/25 08:41 Insulin Aspart (*Bkc) 100 Units/Ml SUB-Q Not Given ACINSULIN [facility] Insulin Glargine 15 units 05/04/25 21:00 05/05/25 21:30 Insulin Glargine (*Bkc) 100 Units/Ml SUB-Q 15 units HS NEIL Administration Lidocaine 1 patch 05/05/25 09:00 05/06/25 08:23 Lidocaine 5% Patch TOPICAL Not Given DAILY NEIL Methocarbamol 750 mg 05/04/25 17:00 05/06/25 08:22 Methocarbamol 750 Mg Tablet PO 750 mg TID NEIL Administration Metolazone 2.5 mg 05/05/25 09:00 05/06/25 08:22 Metolazone 2.5 Mg Tablet PO 2.5 mg DAILY NEIL Administration Multi-Ingred Cream/Lotion/Oil/Oint 1 applic 05/04/25 17:23 Eucerin Cream 454 Gm Jar TOPICAL PRN PRN DRESSING CHANGES Multi-Ingred Cream/Lotion/Oil/Oint 1 applic 05/05/25 09:00 05/06/25 08:23 Eucerin Cream 454 Gm Jar TOPICAL 1 applic DAILY NEIL Administration Multivitamins/Calcium 1 tablet 05/05/25 09:00 05/06/25 08:22 Therapeutic Multivitamins/Minerals Tab (*Bkc) PO 1 tablet DAILY NEIL Administration Ondansetron HCl 4 mg 05/06/25 09:43 05/06/25 09:57 Ondansetron Inj 4 Mg/2 Ml Vial IV PUSH 4 mg Q4H PRN Administration Nausea And Vomiting Oxycodone HCl 2.5 mg 05/05/25 13:45 05/05/25 21:44 Oxycodone Hcl (*Crx) 2.5 Mg Tab Ir PO 2.5 mg Q4H PRN Administration Severe Pain Oxycodone HCl 5 mg 05/05/25 13:53 05/05/25 21:43 Oxycodone Hcl (*Crx) 5 Mg Tab Ir PO 5 mg Q4H PRN Administration Severe Pain Polyethylene Glycol 17 gm 05/06/25 09:00 05/06/25 08:23 Polyethylene Glycol 3350 17 Gm Powd.Pack PO 17 gm QAM NEIL Administration Potassium Chloride 10 meq 05/05/25 09:00 05/06/25 08:21 Potassium Chloride 10 Meq Er Tablet PO 10 meq DAILY NEIL Administration Senna/Docusate Sodium 1 tab 05/05/25 21:00 05/05/25 21:28 Senna/Docusate Sodium Tablet PO 1 tab HS NIEL Administration Sodium Chloride 1 gm 05/06/25 09:00 05/06/25 08:22 Sodium Chloride 1 Gm Tablet PO 1 gm BID NEIL Administration Thiamine HCl 100 mg 05/05/25 09:00 05/06/25 08:22 Thiamine Hcl 100 Mg Tablet PO 100 mg QAM NEIL Administration Radiology Results: ITS Impressions Thoracic/Lumbar Spine CT 05/04/25 14:04 IMPRESSION: Small right pleural effusion. Acute/subacute mild compression fractures at T9, T10, and T12. 5 mm groundglass and 15 mm mixed groundglass/solid right upper lobe pulmonary nodules that have increased in size slightly since the October comparison CT. Recommend biopsy or PET/CT. No acute fracture or traumatic malalignment detected in the lumbar spine. Labs Labs: Laboratory Results - last 24 hr 05/05/25 05/05/25 05/05/25 11:36 14:30 16:30 WBC 8.0 RBC 3.85 L Hgb 12.8 Hct 37.1 MCV 96.4 MCH 33.2 MCHC 34.5 RDW 15.0 H Plt Count 186 MPV 10.2 Immature Gran % (Auto) 0.4 Neut % (Auto) 85.6 H Lymph % (Auto) 4.4 L [place] % (Auto) 6.9 Eos % (Auto) 2.3 Baso % (Auto) 0.4 Lymph # (Auto) 0.35 L [place] # (Auto) 0.6 Eos # (Auto) 0.2 Baso # (Auto) 0.0 Abs Immat Gran (auto) 0.03 Absolute Neuts (auto) 6.8 H Absolute Nucleated RBC 0.000 Nucleated RBC % 0.0 Sodium 125 L Potassium 3.1 L Chloride 88 L Carbon Dioxide 27 Anion Gap 10 BUN 30 H Creatinine 1.48 H Estim Creat Clear Calc 28 Estimated GFR 35 L Glucose 202 H POC Capillary Glucose 134 H 150 H Calcium 9.5 Phosphorus 3.5 Magnesium Total Bilirubin 1.4 H Direct Bilirubin 0.0 AST 38 H ALT 18 Alkaline Phosphatase 301 H Total Creatine Kinase Total Protein 7.6 Albumin 4.1 Vitamin D 25-Hydroxy 43.1 Ur Random Sodium 05/05/25 05/06/25 05/06/25 19:36 04:34 07:31 WBC RBC Hgb Hct MCV MCH MCHC RDW Plt Count MPV Immature Gran % (Auto) Neut % (Auto) Lymph % (Auto) [place] % (Auto) Eos % (Auto) Baso % (Auto) Lymph # (Auto) [place] # (Auto) Eos # (Auto) Baso # (Auto) Abs Immat Gran (auto) Absolute Neuts (auto) Absolute Nucleated RBC Nucleated RBC % Sodium Potassium Chloride Carbon Dioxide Anion Gap BUN Creatinine Estim Creat Clear Calc Estimated GFR Glucose POC Capillary Glucose 193 H 128 H Calcium Phosphorus Magnesium Total Bilirubin Direct Bilirubin AST ALT Alkaline Phosphatase Total Creatine Kinase Total Protein Albumin Vitamin D 25-Hydroxy Ur Random Sodium 81 05/06/25 09:53 WBC 8.3 RBC 3.82 L Hgb 12.3 Hct 36.6 L MCV 95.8 MCH 32.2 MCHC 33.6 RDW 15.2 H Plt Count 186 MPV 9.9 Immature Gran % (Auto) 0.6 H Neut % (Auto) 77.3 H Lymph % (Auto) 6.6 L [place] % (Auto) 11.5 H Eos % (Auto) 3.4 Baso % (Auto) 0.6 Lymph # (Auto) 0.55 L [place] # (Auto) 1.0 H Eos # (Auto) 0.3 Baso # (Auto) 0.1 Abs Immat Gran (auto) 0.05 H Absolute Neuts (auto) 6.5 Absolute Nucleated RBC 0.000 Nucleated RBC % 0.0 Sodium 127 L Potassium 3.1 L Chloride 89 L Carbon Dioxide 27 Anion Gap 11 BUN 34 H Creatinine 1.37 H Estim Creat Clear Calc 30 Estimated GFR 38 L Glucose 128 H POC Capillary Glucose Calcium 9.3 Phosphorus 4.1 Magnesium 1.4 L Total Bilirubin 1.4 H Direct Bilirubin AST 31 ALT 15 Alkaline Phosphatase 320 H Total Creatine Kinase < 20 L Total Protein 7.5 Albumin 4.0 Vitamin D 25-Hydroxy Ur Random Sodium Quality VTE Prophylaxis VTE prophylaxis: mechanical ordered Hospitalist MIPS Advance Care Plan I have confirmed that the patient's Advanced Care Plan is present, code status is documented, or surrogate decision maker is listed in patient medical record.: Yes Medication Reconciliation I have utilized all available resources to obtain, update and review the patients current medications (includes all prescriptions, OTC, herbals, cannabis, and nutritional supplements).: Yes
[2025-05-06] MEDS: LORazepam INJ (*CRX) 2 MG/ML VIAL 0.25 MG IV PUSH (11:27)
[2025-05-06] MEDS: MAGNESIUM SULF 2 GM/WATER 50ML 2 GM/50 ML BAG IVPB (11:27)
[2025-05-06] MEDS: POTASSIUM CHLORIDE INJ 40 MEQ in SODIUM CHLORIDE 0.9% IV 500 ML 130 MEQ IVPB (11:28)
--- NOTE | 2025-05-06 11:35 | PCPTNOTE ---
The patient treatment was not able to be completed. Per RN patient became nauseated during OT treatment and unable to complete OT treatment. Will plan to continue treatment per plan of care.
[2025-05-06] MEDS: chlordiazePOXIDE (*CRX) 25 MG CAPSULE PO (17:18)
[2025-05-06] MEDS: oxyCODONE HCL (*CRX) 5 MG TAB IR PO (18:39)
[2025-05-06] MEDS: THIAMINE 500 MG/NS 100 ML 500 MG/100 ML BAG 200 MG IVPB (20:15)
[2025-05-06] MEDS: SENNA/DOCUSATE SODIUM TABLET 1 TAB PO (20:15)
[2025-05-06] MEDS: INSULIN GLARGINE (*BKC) 100 UNITS/ML 15 UNITS SUB-Q (21:36)
[2025-05-06] MEDS: BISACODYL 10 MG SUPPOSITORY RECTAL (22:07)
[2025-05-06] MEDS: PANTOPRAZOLE SODIUM IV 40 MG VIAL IV PUSH (22:07)
[2025-05-07] VITALS (8 sets, daily range): BP systolic 105–117; BP diastolic 52–57; PULSE 98–104; RESP 14–16; TEMP 36.4–36.7; O2SAT 99–100
[2025-05-07] MEDS: THIAMINE 500 MG/NS 100 ML 500 MG/100 ML BAG 200 MG IVPB ×2 (04:56→13:57)
[2025-05-07 05:53] LABS: Hematocrit 33.2 % (37.0-47.0); Hemoglobin 11.1 g/dL (12.0-15.0); Immature Granulocyte Percent A 0.3 % (0-0.5); Lymphocytes Absolute Auto 0.50 K/mm3 (0.9-3.2); Mean Corpuscular HGB Conc 33.4 g/dl (32-36); Mean Corpuscular Hemoglobin 32.3 pg (26-34); Mean Corpuscular Volume 96.5 fl (80-100); Nucleated Red Blood Cells Absolute Auto 0.000 K/mm3 (0.0-0.012); Nucleated Red Blood Cells Perc 0.0 % (0.0-0.2); Platelet Count Result 184 k/mm3 (150-375); Red Blood Count 3.44 M/mm3 (4.2-5.4); White Blood Count 9.4 K/mm3 (4.5-10.0)
[2025-05-07 06:19] LABS: Anion Gap 9 mmol/L (4-12); Blood Urea Nitrogen 40 mg/dL (7-17); Calcium 8.8 mg/dL (8.4-10.2); Carbon Dioxide 25 mmol/L (22-30); Chloride 94 mmol/L (98-107); Estimated CRCL calculation 27 ml/min; Estimated Glomerular Filt Rate 33; Glucose 140 mg/dL (65-110); Magnesium 1.9 mg/dL (1.6-2.3); Potassium 3.7 mmol/L (3.4-5.0); Sodium 128 mmol/L (137-145)
[2025-05-07 06:23] LABS: Ammonia 35 umol/L (9-30)
--- NOTE | 2025-05-07 08:41 | P.PNIM_ITS ---
Progress Note: A&P Assessment and Plan (1) Acute on chronic back pain: Code(s): M54.9 - Dorsalgia, unspecified; G89.29 - Other chronic pain Status: Acute Assessment and Plan: CT thoracic/lumbar, 05/04: Small right pleural effusion. Acute/subacute mild compression fractures at T9, T10, and T12. 5 mm groundglass and 15 mm mixed groundglass/solid right upper lobe pulmonary nodules that have increased in size slightly since the October comparison CT. Recommend biopsy or PET/CT. No acute fracture or traumatic malalignment detected in the lumbar spine. --Uses a wheelchair at baseline. no precipitating trauma. unable to care for herself independently in current state prompting attempt for placement from the ED to acute rehab, unsuccessful. admitted for pain control, PT/OT and placement. - Stop tramadol, start oxycodone 5-7.5mg, dilaudid prn - consulted neuro surgery, placed a brace --stopped methocarbamol, resume 5mg q8 baclofen to prevent withdrawal --Scheduled tylenol>650 TID, gabapentin 300mg hs (2) Chronic hyponatremia: Code(s): E87.1 - Hypo-osmolality and hyponatremia Status: Chronic Assessment and Plan: - chronic - Na 125, previously 128 on 03/25 - NaCL tab, 1G daily, increased to BID - monitor BMP (3) Diabetes mellitus: Qualifiers: Diabetes mellitus complication status: without complication Diabetes mellitus skilled nursing insulin use: with ad terminal makeup operator use Diabetes mellitus type: type 2 Qualified Code(s): E11.9 - Type 2 diabetes mellitus without complications; Z79.4 - prison (current) use of insulin Code(s): E11.9 - Type 2 diabetes mellitus without complications Status: Chronic Assessment and Plan: - hypoglycemia protocol - POC blood glucose ACHS - home medication: Jardiance, Lantus 15u SQ, Lispro 3u TID - correct regimen ordered - high dose TIDWM - A1C 4.6% on 03/25/2025 (4) Chronic kidney disease, stage 3: Qualifiers: Chronic kidney disease stage 3 subtype: stage 3b (GFR 30-44) Qualified Code(s): N18.32 - Chronic kidney disease, stage 3b Code(s): N18.30 - Chronic kidney disease, stage 3 unspecified Status: Chronic Assessment and Plan: baseline creatinine: 1.5-2.0. Has been over 2 previously. - creatinine 1.15, BUN 24, GFR 24 upon initial evaluation. Up to 1.5, holding diuretics temporarily --Had normal kidneys on US earlier this year, UA negative - trend renal function - trend electrolytes, correct as needed --Having urinary retention, straight cath prn, may need a Samuel and urology follow up (5) Chronic anemia: Code(s): D64.9 - Anemia, unspecified Status: Chronic Assessment and Plan: - Hgb 11.8, previously 8.0 on 02/07 - secondary to chronic disease - transfuse if <7 - monitor (6) Alcoholism: Code(s): F10.20 - Alcohol dependence, uncomplicated Status: Chronic Assessment and Plan: History of alcohol abuse, still has occasional use. Reports she does not withdrawal when she drinks. Monitor. --CIWA, s/p 1 dose of ativan and slept, but still symptomatic with tremors --schedule librium 10mg TID --LIbrium prn (7) Pulmonary nodule: Code(s): R91.1 - Solitary pulmonary nodule Status: Acute Assessment and Plan: Multiple pulmonary nodules on CT, increased in size --Willing to discuss biopsy --Consider PET CT (8) Double vision: Code(s): H53.2 - Diplopia Status: Acute Assessment and Plan: Binocular, also associated with tremors --Thiamine 500mg IV q8h x3 --Treating possible alcohol withdrawal, ativan 0.25 x1, continue librium --Neurology consult --Head CT, MRI brain (9) Vomiting: Code(s): R11.10 - Vomiting, unspecified Status: Acute Assessment and Plan: Zofran prn Plan Diet: Diabetic GI Prophylaxis: N/a DVT Prophylaxis: SCDs IV fluids: None Lines/Tubes: Peripheral IV Code Status: Full code Time Spent With Patient Time: 58 minutes Subjective Date/time seen: 05/07/25 08:41 Interval history: Pain to low back worse today, still having tremors to hands and double vision. No hallucinations today though reports visual hallucination yesterday. Starting a low dose librium TID but unclear improvement with benzos yesterday. Is at risk of ETOH withdrawal MRI brain pending today. Head CT no acute findings. Neurology consulted Abdominal pain improved since yesterday. still mildly tender, had a small BM overnight CT CAP showed varices Was having urinary retention and needed to be straight cathed twice. Sensation normal Pulmonary nodules increased in size since 05/04, will discuss biopsy with radiology Nausea improved. Oxycodone possibly contributing. Stopping fluids since risk of overload with cirrhosis Review of Systems Review of Systems: All systems reviewed & are unremarkable except as noted in HPI and below Exam Narrative: . General - Awake and alert. No acute distress. Chronically ill appearing Eyes - PERRLA, EOM intact ENT - No thrush, No erythema Neck - No noticeable or palpable swelling Lymph Nodes - No lymphadenopathy Cardiovascular - RRR no m/r/g, no JVD Lungs: Clear to auscultation, No wheezing, use of accessory muscles, no crackles Skin - Skin warm and dry, no wounds or rashes. pressure ulcer to right heel and left buttock Abdomen - Normal bowel sounds, abdomen soft and mildly tender low abdomen, distended Extremities - No edema, cyanosis or clubbing. woody/erythema to BLE Musculoskeletal - 5/5 strength, normal range of motion, no swollen or erythematous joints. Neurological ? Alert and oriented x 3, Tremors to both hands when arms outstretched Psych: Normal mood and affect Objective Data Vital Signs Vital Signs: Vital Signs - 24 hr 05/06/25 09:32 05/06/25 12:00 05/06/25 14:00 Temperature 98.4 F Pulse Rate 95 98 99 Respiratory Rate 16 Blood Pressure 132/70 114/54 L Pulse Oximetry 95 100 Oxygen Delivery Fraction of Inspired Oxygen 05/06/25 16:00 05/06/25 20:00 05/06/25 20:09 Temperature 99.0 F Pulse Rate 101 H 98 Respiratory Rate 18 Blood Pressure 105/53 L Pulse Oximetry 100 Oxygen Delivery Room Air Fraction of Inspired Oxygen 05/06/25 21:41 05/07/25 00:00 05/07/25 05:15 Temperature 98.1 F Pulse Rate 99 99 Respiratory Rate 16 Blood Pressure 107/57 L Pulse Oximetry 94 99 Oxygen Delivery Room Air Fraction of Inspired Oxygen 21 Intake/Output Intake/Output: Intake & Output 05/04/25 05/05/25 05/06/25 05/07/25 23:59 23:59 23:59 23:59 Intake Total 120 640 340 Output Total 400 570 700 Balance 120 240 -230 -166 Meds/Results Medications: Active Medications Generic Name Dose Route Start Last Admin Trade Name Freq PRN Reason Stop Dose Admin Acetaminophen 1,000 mg 05/05/25 17:00 05/06/25 17:12 Acetaminophen 500 Mg Tablet PO 1,000 mg TID NEIL Administration Ascorbic Acid 500 mg 05/05/25 09:00 05/06/25 08:22 Ascorbic Acid 500 Mg Tablet PO 500 mg DAILY NEIL Administration Atorvastatin Calcium 10 mg 05/05/25 09:00 05/06/25 08:21 Atorvastatin 10 Mg Tablet PO 10 mg QAM NEIL Administration Bumetanide 1 mg 05/04/25 17:00 05/06/25 08:22 Bumetanide 1 Mg Tablet PO 1 mg BID NEIL Administration Chlordiazepoxide HCl 25 mg 05/06/25 11:05 05/06/25 17:18 Chlordiazepoxide (*Crx) 25 Mg Capsule PO 25 mg Q6H PRN Administration Withdrawal Chlordiazepoxide HCl 10 mg 05/07/25 09:00 Chlordiazepoxide (*Crx) 10 Mg Capsule PO 05/07/25 17:01 TID NEIL Dextrose 12.5 gm 05/04/25 16:57 Dextrose 50% 25 Gm/50 Ml Syringe IV PUSH PRN PRN Hypoglycemia Protocol Empagliflozin 10 mg 05/05/25 09:00 05/06/25 08:22 Empagliflozin 10 Mg Tablet PO 10 mg DAILY NEIL Administration Ferrous Sulfate 325 mg 05/05/25 09:00 05/06/25 08:22 Ferrous Sulfate [address] PO 325 mg DAILY NEIL Administration Fluticasone Propionate 1 spray 05/04/25 16:59 Fluticasone Propionate 0.05% Na Spr 16 Gm Btl (*Bkc) NASAL DAILY PRN allergies Folic Acid 0.8 mg 05/05/25 09:00 05/06/25 08:22 Folic Acid 0.4 Mg Tablet PO 0.8 mg DAILY NEIL Administration Gabapentin 300 mg 05/05/25 21:00 05/05/25 21:28 Gabapentin 300 Mg Capsule PO 300 mg HS NEIL Administration Glucagon 1 mg 05/04/25 16:57 Glucagon For Inj 1 Mg Vial IM PRN PRN Hypoglycemia Protocol Glucose 15 gm 05/04/25 16:57 Glucose Oral Gel 15 Gm Of Glucse In 37.5 Gm Tube PO PRN PRN Hypoglycemia Protocol Hydromorphone HCl 0.5 mg 05/05/25 13:45 05/06/25 22:15 Hydromorphone Hcl Inj (*Crx) 2 Mg/Ml Vial IV PUSH 0.5 mg Q3H PRN Administration Breakthrough Pain Potassium Chloride/Dextrose/Sod Cl 1,000 mls @ 75 mls/hr 05/06/25 10:00 05/07/25 04:55 Kcl 20 Meq/D5/0.9% Sod Chl IV CONT Not Given .[id number] NEIL Thiamine HCl 500 mg in 100 mls @ 200 mls/hr 05/06/25 20:00 05/07/25 04:56 IVPB 05/07/25 12:29 200 mls/hr Q8H NEIL Administration Insulin Aspart 4 - 8 units 05/04/25 17:00 05/06/25 17:13 Insulin Aspart (*Bkc) 100 Units/Ml SUB-Q Not Given TIDWM [facility] Protocol Insulin Aspart 3 units 05/04/25 17:20 05/06/25 18:05 Insulin Aspart (*Bkc) 100 Units/Ml SUB-Q Not Given ACINSULIN [facility] Insulin Glargine 10 units 05/07/25 09:00 Insulin Glargine (*Bkc) 100 Units/Ml SUB-Q DAILY NEIL Lidocaine 1 patch 05/05/25 09:00 05/06/25 08:23 Lidocaine 5% Patch TOPICAL Not Given DAILY NEIL Methocarbamol 750 mg 05/04/25 17:00 05/06/25 17:12 Methocarbamol 750 Mg Tablet PO 750 mg TID NEIL Administration Metolazone 2.5 mg 05/05/25 09:00 05/06/25 08:22 Metolazone 2.5 Mg Tablet PO 2.5 mg DAILY NEIL Administration Multi-Ingred Cream/Lotion/Oil/Oint 1 applic 05/04/25 17:23 Eucerin Cream 454 Gm Jar TOPICAL PRN PRN DRESSING CHANGES Multi-Ingred Cream/Lotion/Oil/Oint 1 applic 05/05/25 09:00 05/06/25 08:23 Eucerin Cream 454 Gm Jar TOPICAL 1 applic DAILY NEIL Administration Multivitamins/Calcium 1 tablet 05/05/25 09:00 05/06/25 08:22 Therapeutic Multivitamins/Minerals Tab (*Bkc) PO 1 tablet DAILY NEIL Administration Ondansetron HCl 4 mg 05/06/25 09:43 05/06/25 17:22 Ondansetron Inj 4 Mg/2 Ml Vial IV PUSH 4 mg Q4H PRN Administration Nausea And Vomiting Oxycodone HCl 2.5 mg 05/05/25 13:45 05/05/25 21:44 Oxycodone Hcl (*Crx) 2.5 Mg Tab Ir PO 2.5 mg Q4H PRN Administration Severe Pain Oxycodone HCl 5 mg 05/05/25 13:53 05/06/25 18:39 Oxycodone Hcl (*Crx) 5 Mg Tab Ir PO 5 mg Q4H PRN Administration Severe Pain Pantoprazole Sodium 40 mg 05/06/25 21:10 05/06/25 22:07 Pantoprazole Sodium Iv 40 Mg Vial IV PUSH 40 mg Q12HR NEIL Administration Polyethylene Glycol 17 gm 05/07/25 09:00 Polyethylene Glycol 3350 17 Gm Powd.Pack PO TID NEIL Potassium Chloride 10 meq 05/05/25 09:00 05/06/25 08:21 Potassium Chloride 10 Meq Er Tablet PO 10 meq DAILY NEIL Administration Senna/Docusate Sodium 1 tab 05/05/25 21:00 05/06/25 20:15 Senna/Docusate Sodium Tablet PO 1 tab HS NEIL Administration Sodium Chloride 1 gm 05/06/25 09:00 05/06/25 17:12 Sodium Chloride 1 Gm Tablet PO 1 gm BID NEIL Administration Thiamine HCl 100 mg 05/05/25 09:00 05/06/25 08:22 Thiamine Hcl 100 Mg Tablet PO 100 mg QAM NEIL Administration Radiology Results: ITS Impressions Thoracic/Lumbar Spine CT 05/04/25 14:04 IMPRESSION: Small right pleural effusion. Acute/subacute mild compression fractures at T9, T10, and T12. 5 mm groundglass and 15 mm mixed groundglass/solid right upper lobe pulmonary nodules that have increased in size slightly since the October comparison CT. Recommend biopsy or PET/CT. No acute fracture or traumatic malalignment detected in the lumbar spine. Abdomen X-Ray 05/06/25 19:50 IMPRESSION: Suggestion of gastric fold thickening as can be seen with gastritis or varices. Suggestion of small bowel wall thickening, may reflect enteritis. Head CT 05/06/25 19:54 Impression: No acute intracranial hemorrhage or suspicious mass effect. Abdomen/Pelvis CT 05/06/25 20:40 IMPRESSION: Small volume pericardial fluid versus pericardial thickening. Small right pleural effusion with adjacent atelectasis. Infection not excluded. Moderate gastric distention with prominent folds and may represent gastric varices. Cirrhosis with portal hypertension. Mild gastric distention with prominent gastric folds that may represent gastric varices. Proximal small bowel wall thickening as can be seen with enteritis. Segmental wall thickening in the transverse and sigmoid colon, as can be seen with infectious, inflammatory, or ischemic colitis. Possible mild fecal impaction and constipation. Distended urinary bladder, correlate for urinary retention. Progressive mild-moderate multilevel compression fractures in the thoracic and lumbar spine. Labs Labs: Laboratory Results - last 24 hr 05/06/25 05/06/25 05/06/25 09:53 11:39 16:28 WBC 8.3 RBC 3.82 L Hgb 12.3 Hct 36.6 L MCV 95.8 MCH 32.2 MCHC 33.6 RDW 15.2 H Plt Count 186 MPV 9.9 Immature Gran % (Auto) 0.6 H Neut % (Auto) 77.3 H Lymph % (Auto) 6.6 L Tyler % (Auto) 11.5 H Eos % (Auto) 3.4 Baso % (Auto) 0.6 Lymph # (Auto) 0.55 L Tyler # (Auto) 1.0 H Eos # (Auto) 0.3 Baso # (Auto) 0.1 Abs Immat Gran (auto) 0.05 H Absolute Neuts (auto) 6.5 Absolute Nucleated RBC 0.000 Nucleated RBC % 0.0 Sodium 127 L Potassium 3.1 L Chloride 89 L Carbon Dioxide 27 Anion Gap 11 BUN 34 H Creatinine 1.37 H Estim Creat Clear Calc 30 Estimated GFR 38 L Glucose 128 H POC Capillary Glucose 135 H 120 H Lactic Acid Calcium 9.3 Phosphorus 4.1 Magnesium 1.4 L Total Bilirubin 1.4 H AST 31 ALT 15 Alkaline Phosphatase 320 H Ammonia Total Creatine Kinase < 20 L Total Protein 7.5 Albumin 4.0 05/06/25 05/07/25 05/07/25 20:54 04:33 05:44 WBC 9.4 RBC 3.44 L Hgb 11.1 L Hct 33.2 L MCV 96.5 MCH 32.3 MCHC 33.4 RDW 15.0 H Plt Count 184 MPV 9.7 Immature Gran % (Auto) 0.3 Neut % (Auto) 81.4 H Lymph % (Auto) 5.3 L Tyler % (Auto) 9.3 H Eos % (Auto) 3.2 Baso % (Auto) 0.5 Lymph # (Auto) 0.50 L Tyler # (Auto) 0.9 H Eos # (Auto) 0.3 Baso # (Auto) 0.1 Abs Immat Gran (auto) 0.03 Absolute Neuts (auto) 7.7 H Absolute Nucleated RBC 0.000 Nucleated RBC % 0.0 Sodium 128 L Potassium 3.7 Chloride 94 L Carbon Dioxide 25 Anion Gap 9 BUN 40 H Creatinine 1.55 H Estim Creat Clear Calc 27 Estimated GFR 33 L Glucose 140 H POC Capillary Glucose 216 H 162 H Lactic Acid 0.8 Calcium 8.8 Phosphorus Magnesium 1.9 Total Bilirubin AST ALT Alkaline Phosphatase Ammonia 35 H Total Creatine Kinase Total Protein Albumin 05/07/25 08:05 WBC RBC Hgb Hct MCV MCH MCHC RDW Plt Count MPV Immature Gran % (Auto) Neut % (Auto) Lymph % (Auto) Tyler % (Auto) Eos % (Auto) Baso % (Auto) Lymph # (Auto) Tyler # (Auto) Eos # (Auto) Baso # (Auto) Abs Immat Gran (auto) Absolute Neuts (auto) Absolute Nucleated RBC Nucleated RBC % Sodium Potassium Chloride Carbon Dioxide Anion Gap BUN Creatinine Estim Creat Clear Calc Estimated GFR Glucose POC Capillary Glucose 122 H Lactic Acid Calcium Phosphorus Magnesium Total Bilirubin AST ALT Alkaline Phosphatase Ammonia Total Creatine Kinase Total Protein Albumin Quality VTE Prophylaxis VTE prophylaxis: mechanical ordered Hospitalist MIPS Advance Care Plan I have confirmed that the patient's Advanced Care Plan is present, code status is documented, or surrogate decision maker is listed in patient medical record.: Yes Medication Reconciliation I have utilized all available resources to obtain, update and review the patients current medications (includes all prescriptions, OTC, herbals, cannabis, and nutritional supplements).: Yes
[2025-05-07] MEDS: INSULIN ASPART (*BKC) 100 UNITS/ML SUB-Q ×3 (09:16→17:52)
[2025-05-07] MEDS: SODIUM CHLORIDE 1 GM TABLET PO ×2 (09:17→17:52)
[2025-05-07] MEDS: ASCORBIC ACID 500 MG TABLET PO (09:17)
[2025-05-07] MEDS: THIAMINE HCL 100 MG TABLET PO (09:17)
[2025-05-07] MEDS: THERAPEUTIC MULTIVITAMINS/MINERALS TAB (*BKC) 1 TABLET PO (09:17)
[2025-05-07] MEDS: FERROUS SULFATE 325 MG TABLET DR PO (09:17)
[2025-05-07] MEDS: POTASSIUM CHLORIDE 10 MEQ ER TABLET PO (09:17)
[2025-05-07] MEDS: ACETAMINOPHEN 500 MG TABLET 1000 MG PO ×3 (09:17→17:52)
[2025-05-07] MEDS: FOLIC ACID 0.4 MG TABLET 0.8 MG PO (09:17)
[2025-05-07] MEDS: chlordiazePOXIDE (*CRX) 10 MG CAPSULE PO ×3 (09:17→17:52)
[2025-05-07] MEDS: EMPAGLIFLOZIN 10 MG TABLET PO (09:17)
[2025-05-07] MEDS: ATORVASTATIN 10 MG TABLET PO (09:17)
[2025-05-07] MEDS: LIDOCAINE 5% PATCH 1 PATCH TOPICAL (09:18)
[2025-05-07] MEDS: PANTOPRAZOLE SODIUM IV 40 MG VIAL IV PUSH (09:20)
[2025-05-07] MEDS: INSULIN GLARGINE (*BKC) 100 UNITS/ML 10 UNITS SUB-Q (09:20)
[2025-05-07] MEDS: EUCERIN CREAM 454 GM JAR 1 APPLIC TOPICAL (09:20)
--- NOTE | 2025-05-07 12:01 | PC.NURSE ---
Patient off of unit to MRI
--- NOTE | 2025-05-07 13:31 | PC.NURSE ---
RN spoke with MRI. Patient unable to complete MRI due to pain. Patient is unable to maintain the positions MRI are asking therefore the scan is unable to be completed.
[2025-05-07 15:09] LABS: Osmolality, Urine 322 mOsmol/kg (.)
--- NOTE | 2025-05-07 17:04 | P.CONGI_ITS ---
Assessment and Plan Assessment and plan (1) Alcoholic cirrhosis of liver: Qualifiers: Ascites presence: without ascites Qualified Code(s): K70.30 - Alcoholic cirrhosis of liver without ascites Code(s): K70.30 - Alcoholic cirrhosis of liver without ascites Status: Chronic Assessment and Plan: The patient, who has alcohol-related cirrhosis, is currently in the hospital for spinal fractures. A significant concern is the acute rise in her creatinine. This could be related to the recent home diuretics, bumetanide and spironolactone, which were held upon admission. She takes tramadol for pain, but we need to confirm if she's also taking any NSAIDs or other medications that could be contributing to her kidney function decline. Notably, her ascites is well-controlled on her previous diuretic regimen (CT scan did not show ascites) which makes tense ascites or hepatorenal syndrome unlikely causes for the creatinine increase. She was also taking baclofen which can contribute to her creatinine increase. However, nephrology's opinion might be valuable in this context. While an EGD isn't warranted at this moment, we plan to arrange a FibroScan after discharge. This will help us determine the extent of her liver fibrosis and estimate her risk of developing varices. It's important to remember that gastric varices, even if identified, aren't typically managed with prophylactic band ligation. Instead, carvedilol, a non-selective beta-walter, would be the treatment of choice. However, her current worsening creatinine level contraindicates the use of carvedilol right now. Finally, the imaging finding of colonic wall thickening doesn't align with any clinical symptoms like diarrhea or abdominal pain, so we'll monitor it without immediate intervention. Plan - Nephrology consultation for the recent increase in creatinine - Will arrange for Fibroscan as soon as she is discharged from the hospital - Hold diuretics and Baclofen for now - Low sodium diet GI Consult Note Consult date/time: 05/07/25 17:05 Reason for consult: Cirrhosis HPI: Lou Islas is a 70-year-old female with a medical background notable for alcoholic cirrhosis, diabetes, and previously identified right upper lung pulmonary nodules. Her current admission on May 04, 2025, was primarily for severe back pain, which was subsequently diagnosed as T9-T12 compression fractures. During this hospitalization, an abdominal CT scan revealed prominent gastric folds, concerning for gastric varices in the context of her known cirrhosis and portal hypertension, motivating this consultation. The CT also showed short segment colonic wall thickening, initially interpreted as possible colitis, though it's important to note the patient is currently asymptomatic regarding diarrhea or abdominal pain. Her chronic home medications include bumetanide and spironolactone, along with analgesics for her back pain. She also reported taking an unspecified dose of baclofen to aid in reducing alcohol cravings. Recent laboratory findings indicate: WBC 9.4, Hgb 11.1, INR 1.3, sodium 128, creatinine 1.55, bilirubin 1.4, and albumin 4.0. Of concern is an acute rise in her creatinine, increasing from 1.15 on admission to 1.55 today, representing more than a 30% increase in two days. Her MELD 3.0 score stands at 23. Review of Systems 2 Review of Systems: All systems reviewed & are unremarkable except as noted in HPI and below PMFSH Past Medical History Medical History Alcoholic cirrhosis of liver Chronic venous insufficiency of lower extremity Stage 3a chronic kidney disease Shingles ANTHONY (obstructive sleep apnea) Osteoporosis Gram-negative bacteremia Anemia of chronic disease Ascites Obesity (BMI 30-39.9) Hyperlipidemia, unspecified Carotid artery disease Alcohol abuse Osteoarthritis Diastolic dysfunction ECHO 10/2023: normal LV systolic function, estimated EF of 60-65%, abnormal diastolic dysfunction. Left-sided carotid artery disease US 01/2021: 50 to 69% stenosis of the left ICA. Orthostatic hypotension on midodrine, chronic hypotension, previously caused syncope and frequent falls and subsequent fractures. Insulin dependent type 2 diabetes mellitus A1C 5.1% 08/2024 Chronic hyponatremia Eczema Periprosthetic fracture of femur following total replacement of hip (01/2020) Non operative treatment. GERD (gastroesophageal reflux disease) Surgical History Surgical History Status post open reduction with internal fixation of fracture (05/30/21) ORIF of comminuted intra-articular fracture of the distal left femur, done at [facility]. History of hysterectomy (2005) Due to uterine fibroids and endometriosis. History of bilateral cataract extraction History of lumbar surgery (2005) L1-L3. History of right hip replacement (2005) Per Dr. Curiel in [place]. Family History Family History Father Heart attack Mother Diabetes mellitus COPD (chronic obstructive pulmonary disease) Hypertension Afib Sibling Amputation above knee Diabetes mellitus Father , At age 50 Acute myocardial infarction Sibling , At age 50 Pancreatic cancer Social History Social History Social History: The patient lives in her own home in [place]. She has been twice, her 1st and she has since her 2nd . She has no children. She moved to this area within the last couple of years from [place] to be close to her 3 remaining siblings. 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 She has recently retired.She smoked up to 2 packs of cigarettes a day before quitting in 2005. She drinks 2 mixed drinks a day, each containing a shot of vodka which equals out to about 1 L to 1.7 L of vodka a week. She denies illicit substance use. Surrogate decision maker: Miladys Jensen, sister. Code status: Full code. Smoking packs per day: 2 Smoking cigarettes per day: 40.0 Years smoked: 30 Smoking pack-years: 60.00 Smoking status: Never smoker Smokeless tobacco user: chewing tobacco Second hand tobacco smoke exposure: No Alcohol intake: never Drinks per week: 14 Substance use: never Substance use type: does not use Do You Feel Safe in your Home?: Yes Lack of Transportation: No Lack of Food: Never True Current Housing: I Have Housing Concerned About Future Housing: No Difficulty Paying Gas/Electric Bills: No Difficulty Paying for Meds: No Currently Unemployed: No Education: Decline to Answer Difficulty w/ Childcare or Family Care: No Living arrangements: alone Occupation/Education: retired Gender identity (if verbalized by the patient): Female Sexual Orientation (if Verbalized by the Patient): Straight or Heterosexual Spiritual care concerns: No Meds Home Medications and Allergies Home Medications ?Medication ?Instructions ?Recorded ?Confirmed ?Type fluticasone propionate 50 1 spray intranasal DAILY PRN 08/16/20 05/04/25 History mcg/actuation nasal allergies spray,suspension thiamine HCl (vitamin B1) 100 mg 100 mg PO QAM #30 tabs 08/18/20 05/04/25 Rx tablet (Vitamin B-1) pdgkmvwiwayy-Oh-jlzp-minerals 1 tablet PO DAILY #30 tabs 01/16/21 05/04/25 Rx (Multiple Vitamin, Womens tablet) blood sugar diagnostic #360 ea 10/31/22 05/04/25 Rx empagliflozin 10 mg tablet 10 mg PO DAILY #30 tabs 10/26/23 05/04/25 Rx (Jardiance) alendronate 70 mg tablet 70 mg PO WEEKLY #12 tabs 12/12/23 05/04/25 Rx ascorbate calcium (vitamin C) 500 500 mg PO DAILY 06/20/24 05/04/25 History mg tablet folic acid 800 mcg tablet 0.8 mg PO DAILY 06/20/24 05/04/25 History pen needle, diabetic 32 gauge x #360 ea 09/11/24 05/04/25 Rx (BD Muriel 2nd Gen Pen Needle) blood-glucose sensor (Tiqets G7 #3 ea 09/13/24 05/04/25 Rx Sensor device) potassium chloride 10 mEq 10 meq PO DAILY #90 caps 09/30/24 05/04/25 Rx capsule,extended release ferrous sulfate 325 mg (65 mg 325 mg PO DAILY 01/16/25 05/04/25 History iron) tablet (Leonard-Time) insulin lispro 100 unit/mL 3 unit subcut TID 01/16/25 05/04/25 History subcutaneous pen (Humalog KwikPen (U-100) Insulin) lanolin alcohols-mineral 1 applic topical DAILY 01/16/25 05/04/25 History oil-w.petrolatum-ceresin topical cream spironolactone 25 mg tablet 50 mg PO QAM 01/31/25 05/04/25 History lidocaine 5 % topical patch 1 patch topical DAILY 03/05/25 05/04/25 History bumetanide 1 mg tablet 1 mg PO BID #60 tabs 04/01/25 05/04/25 Rx metolazone 2.5 mg tablet 2.5 mg PO DAILY 04/01/25 05/04/25 History sodium chloride 1 gram tablet 1,000 mg PO DAILY 04/01/25 05/04/25 History tramadol 50 mg tablet 50 mg PO Q8H PRN pain #30 tabs 04/22/25 05/04/25 Rx atorvastatin 10 mg tablet 10 mg PO QAM #90 tabs 04/28/25 05/04/25 Rx baclofen 10 mg tablet 10 mg PO BID #20 tabs 05/02/25 05/04/25 Rx insulin glargine 100 unit/mL (3 15 unit subcut QPM 05/04/25 05/04/25 History mL) subcutaneous pen (Lantus Solostar U-100 Insulin) methocarbamol 750 mg tablet 750 mg PO TID 05/04/25 05/04/25 History Allergies Allergy/AdvReac Type Severity Reaction Status Date / Time codeine AdvReac Unknown Headache Verified 05/04/25 10:29 Vital Signs Vital Signs - 24 hr 05/06/25 20:00 05/06/25 20:09 05/06/25 21:41 Temperature 99.0 F Pulse Rate 98 Respiratory Rate 18 Blood Pressure 105/53 L Pulse Oximetry 100 94 Oxygen Delivery Room Air Room Air Fraction of Inspired Oxygen 21 05/07/25 00:00 05/07/25 05:15 05/07/25 09:32 Temperature 98.1 F Pulse Rate 99 99 Respiratory Rate 16 Blood Pressure 107/57 L Pulse Oximetry 99 Oxygen Delivery Room Air Fraction of Inspired Oxygen 05/07/25 14:00 Temperature 97.5 F L Pulse Rate 102 H Respiratory Rate 16 Blood Pressure 117/54 L Pulse Oximetry 100 Oxygen Delivery Fraction of Inspired Oxygen Exam 2 Const: General: cooperative and healthy appearing Resp: Effort & Inspection: normal respiratory effort and able to speak in complete sentences Auscultation: clear to auscultation bilaterally Cardio: Rate: regular rate Rhythm: regular rhythm GI: Inspection: normal to inspection GI Palp: No No hepatosplenomegaly present Auscultation: normal bowel sounds Rectal Exam: deferred Skin: General skin exam: normal color Psych: Appearance: grossly normal Mental Status: mental status grossly normal Results Labs 05/07/25 05:44 05/07/25 05:44 Labs: Short CBC 05/07/25 Range/Units 05:44 WBC 9.4 (4.5-10.0) K/mm3 Hgb 11.1 L (12.0-15.0) g/dL Hct 33.2 L (37.0-47.0) % Plt Count 184 (150-375) k/mm3 [facility] 05/07/25 05:44 Sodium 128 L Potassium 3.7 Chloride 94 L Carbon Dioxide 25 BUN 40 H Creatinine 1.55 H Glucose 140 H Calcium 8.8
[2025-05-07 22:08] LABS: Osmolality, Serum 273 mOsmol/kg (280-301)
[2025-05-08] VITALS (9 sets, daily range): BP systolic 105–110; BP diastolic 52–54; PULSE 94–102; RESP 13–18; TEMP 36.2–36.8; O2SAT 99–100
[2025-05-08 06:10] LABS: Hematocrit 32.6 % (37.0-47.0); Hemoglobin 10.8 g/dL (12.0-15.0); Immature Granulocyte Percent A 0.3 % (0-0.5); Lymphocytes Absolute Auto 0.60 K/mm3 (0.9-3.2); Mean Corpuscular HGB Conc 33.1 g/dl (32-36); Mean Corpuscular Hemoglobin 32.3 pg (26-34); Mean Corpuscular Volume 97.6 fl (80-100); Nucleated Red Blood Cells Absolute Auto 0.000 K/mm3 (0.0-0.012); Nucleated Red Blood Cells Perc 0.0 % (0.0-0.2); Platelet Count Result 173 k/mm3 (150-375); Red Blood Count 3.34 M/mm3 (4.2-5.4); White Blood Count 10.5 K/mm3 (4.5-10.0)
[2025-05-08 06:39] LABS: Anion Gap 7 mmol/L (4-12); Blood Urea Nitrogen 40 mg/dL (7-17); Calcium 8.7 mg/dL (8.4-10.2); Carbon Dioxide 25 mmol/L (22-30); Chloride 92 mmol/L (98-107); Estimated CRCL calculation 26 ml/min; Estimated Glomerular Filt Rate 31; Glucose 109 mg/dL (65-110); Magnesium 1.8 mg/dL (1.6-2.3); Potassium 3.7 mmol/L (3.4-5.0); Sodium 124 mmol/L (137-145)
--- NOTE | 2025-05-08 08:37 | P.PNIM_ITS ---
Progress Note: A&P Assessment and Plan (1) Acute on chronic back pain: Code(s): M54.9 - Dorsalgia, unspecified; G89.29 - Other chronic pain Status: Acute Assessment and Plan: CT thoracic/lumbar, 05/04: Small right pleural effusion. Acute/subacute mild compression fractures at T9, T10, and T12. 5 mm groundglass and 15 mm mixed groundglass/solid right upper lobe pulmonary nodules that have increased in size slightly since the October comparison CT. Recommend biopsy or PET/CT. No acute fracture or traumatic malalignment detected in the lumbar spine. --Uses a wheelchair at baseline. no precipitating trauma. unable to care for herself independently in current state prompting attempt for placement from the ED to acute rehab, unsuccessful. admitted for pain control, PT/OT and placement. - Stopped tramadol, started oxycodone 5-7.5mg, dilaudid prn - consulted neuro surgery, placed a brace --stopped methocarbamol, Decreased Baclofen from 10 BID to 5 TID, now on hold --Scheduled tylenol>650 TID, holding gabapentin 300mg hs --Bowel regimen with opiates (2) Chronic hyponatremia: Code(s): E87.1 - Hypo-osmolality and hyponatremia Status: Chronic Assessment and Plan: - chronic - Na down to 124 - NaCL tab, 1G daily, increased to BID - monitor BMP --Fluid restriction, 1500ml --Consult renal (3) Diabetes mellitus: Qualifiers: Diabetes mellitus complication status: without complication Diabetes mellitus shelter insulin use: with shelter use Diabetes mellitus type: type 2 Qualified Code(s): E11.9 - Type 2 diabetes mellitus without complications; 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 Has been over 2 previously. - creatinine 1.15, BUN 24, GFR 24 upon initial evaluation. Up to 1.5, holding diuretics temporarily --Had normal kidneys on US earlier this year, UA negative - trend renal function - trend electrolytes, correct as needed --Having urinary retention, straight cathed, now Pleitez placed. Void trial prior to discharge (5) Chronic anemia: Code(s): D64.9 - Anemia, unspecified Status: Chronic Assessment and Plan: - Hgb 11.8, previously 8.0 on 02/07 - secondary to chronic disease - transfuse if <7 - monitor (6) Alcoholism: Code(s): F10.20 - Alcohol dependence, uncomplicated Status: Chronic Assessment and Plan: History of alcohol abuse, still has occasional use. Reports she does not withdrawal when she drinks. Monitor. Drinks 3 1-2 inch glasses of vodka with soda a day --CIWA, s/p 1 dose of ativan and slept, but still symptomatic with tremors --scheduled librium 10mg TID yesterday --LIbrium prn (7) Pulmonary nodule: Code(s): R91.1 - Solitary pulmonary nodule Status: Acute Assessment and Plan: Multiple pulmonary nodules on CT, increased in size --Discussed biopsy with radiologist and recommended biopsy over PET scan --NPO if able to biopsy tomorrow (8) Double vision: Code(s): H53.2 - Diplopia Status: Acute Assessment and Plan: Binocular, also associated with tremors. Both symptoms resolved completely today S/P Thiamine 500mg IV q8h x3. Also treated possible alcohol withdrawal, ativan 0.25 x1, librium 10 TID yesterday --Head CT no acute findings. MRI brain unable to be completed due to low back pain (9) Vomiting: Code(s): R11.10 - Vomiting, unspecified Status: Acute Assessment and Plan: Zofran prn Plan Diet: Diabetic GI Prophylaxis: N/a DVT Prophylaxis: SCDs IV fluids: None Lines/Tubes: Peripheral IV Code Status: Full code Time Spent With Patient Time: 54 minutes Subjective Date/time seen: 05/08/25 10:20 Interval history: Sodium 124 today, trending down. Renal consulted today for hyponatremia. Also has CKD and creatinine fluctuates. Requiring intermittent straight caths overnight so pleitez was placed Constipation resolved but now stools loose. Abdominal pain sigificantly improved GI consulted, planning outpatient fibroscan Tremors and diplopia resolved completely so dc'd neurology consult, spoke with neurology Was unable to tolerate MRI brain due to severe back pain Holding duretics Review of Systems Review of Systems: All systems reviewed & are unremarkable except as noted in HPI and below Exam Narrative: . General - Awake and alert. No acute distress. Chronically ill appearing Eyes - PERRLA, EOM intact ENT - No thrush, No erythema Neck - No noticeable or palpable swelling Lymph Nodes - No lymphadenopathy Cardiovascular - RRR no m/r/g, no JVD Lungs: Clear to auscultation, No wheezing, use of accessory muscles, no crackles Skin - Skin warm and dry,, no rashes. pressure ulcer to right heel and left buttock Abdomen - Normal bowel sounds, abdomen soft and mildly tender low abdomen, less distended Extremities - No edema, cyanosis or clubbing. woody/erythema to BLE Musculoskeletal - 5/5 strength, normal range of motion, no swollen or erythematous joints. Neurological ? Alert and oriented x 3, Tremors to both hands when arms c ompletely resolved Psych: Normal mood and affect Objective Data Vital Signs Vital Signs: Vital Signs - 24 hr 05/07/25 09:32 05/07/25 12:00 05/07/25 14:00 Temperature 97.5 F L Pulse Rate 104 H 102 H Respiratory Rate 16 Blood Pressure 117/54 L Pulse Oximetry 100 Oxygen Delivery Room Air Fraction of Inspired Oxygen 05/07/25 16:00 05/07/25 20:00 05/07/25 20:00 Temperature Pulse Rate 101 H 102 H Respiratory Rate 14 Blood Pressure 105/52 L Pulse Oximetry 100 Oxygen Delivery Room Air Fraction of Inspired Oxygen 21 05/07/25 20:00 05/07/25 21:17 05/08/25 00:00 Temperature 98.1 F Pulse Rate 102 H 102 H Respiratory Rate 14 Blood Pressure 105/52 L 105/52 L Pulse Oximetry 100 Oxygen Delivery Fraction of Inspired Oxygen 05/08/25 00:00 05/08/25 04:00 05/08/25 05:34 Temperature 97.8 F Pulse Rate 94 99 100 Respiratory Rate 13 Blood Pressure 108/54 L Pulse Oximetry 100 Oxygen Delivery Fraction of Inspired Oxygen Intake/Output Intake/Output: Intake & Output 05/05/25 05/06/25 05/07/25 05/08/25 23:59 23:59 23:59 23:59 Intake Total 022 966 1416 550 Output Total 730 330 0668 650 Balance 240 -230 607 -100 Meds/Results Medications: Active Medications Generic Name Dose Route Start Last Admin Trade Name Freq PRN Reason Stop Dose Admin Acetaminophen 1,000 mg 05/05/25 17:00 05/07/25 17:52 Acetaminophen 500 Mg Tablet PO 1,000 mg TID NEIL Administration Ascorbic Acid 500 mg 05/05/25 09:00 05/07/25 09:17 Ascorbic Acid 500 Mg Tablet PO 500 mg DAILY NEIL Administration Atorvastatin Calcium 10 mg 05/05/25 09:00 05/07/25 09:17 Atorvastatin 10 Mg Tablet PO 10 mg QAM NEIL Administration Bumetanide 1 mg 05/04/25 17:00 05/06/25 08:22 Bumetanide 1 Mg Tablet PO 1 mg BID NEIL Administration Chlordiazepoxide HCl 25 mg 05/06/25 11:05 05/06/25 17:18 Chlordiazepoxide (*Crx) 25 Mg Capsule PO 25 mg Q6H PRN Administration Withdrawal Dextrose 12.5 gm 05/04/25 16:57 Dextrose 50% 25 Gm/50 Ml Syringe IV PUSH PRN PRN Hypoglycemia Protocol Empagliflozin 10 mg 05/05/25 09:00 05/07/25 09:17 Empagliflozin 10 Mg Tablet PO 10 mg DAILY NEIL Administration Ferrous Sulfate 325 mg 05/05/25 09:00 05/07/25 09:17 Ferrous Sulfate [address] PO 325 mg DAILY NEIL Administration Fluticasone Propionate 1 spray 05/04/25 16:59 Fluticasone Propionate 0.05% Na Spr 16 Gm Btl (*Bkc) NASAL DAILY PRN allergies Folic Acid 0.8 mg 05/05/25 09:00 05/07/25 09:17 Folic Acid 0.4 Mg Tablet PO 0.8 mg DAILY NEIL Administration Gabapentin 300 mg 05/05/25 21:00 05/05/25 21:28 Gabapentin 300 Mg Capsule PO 300 mg HS NEIL Administration Glucagon 1 mg 05/04/25 16:57 Glucagon For Inj 1 Mg Vial IM PRN PRN Hypoglycemia Protocol Glucose 15 gm 05/04/25 16:57 Glucose Oral Gel 15 Gm Of Glucse In 37.5 Gm Tube PO PRN PRN Hypoglycemia Protocol Hydromorphone HCl 0.5 mg 05/05/25 13:45 05/06/25 22:15 Hydromorphone Hcl Inj (*Crx) 2 Mg/Ml Vial IV PUSH 0.5 mg Q3H PRN Administration Breakthrough Pain Insulin Aspart 4 - 8 units 05/04/25 17:00 05/08/25 07:45 Insulin Aspart (*Bkc) 100 Units/Ml SUB-Q Not Given TIDWM NEIL Protocol Insulin Aspart 3 units 05/04/25 17:20 05/07/25 17:52 Insulin Aspart (*Bkc) 100 Units/Ml SUB-Q 3 units ACINSULIN NEIL Administration Insulin Glargine 10 units 05/07/25 09:00 05/07/25 09:20 Insulin Glargine (*Bkc) 100 Units/Ml SUB-Q 10 units DAILY NEIL Administration Lidocaine 1 patch 05/05/25 09:00 05/07/25 09:18 Lidocaine 5% Patch TOPICAL 1 patch DAILY NEIL Administration Methocarbamol 750 mg 05/04/25 17:00 05/06/25 17:12 Methocarbamol 750 Mg Tablet PO 750 mg TID NEIL Administration Metolazone 2.5 mg 05/05/25 09:00 05/07/25 09:18 Metolazone 2.5 Mg Tablet PO 2.5 mg DAILY NEIL Administration Multi-Ingred Cream/Lotion/Oil/Oint 1 applic 05/04/25 17:23 Eucerin Cream 454 Gm Jar TOPICAL PRN PRN DRESSING CHANGES Multi-Ingred Cream/Lotion/Oil/Oint 1 applic 05/05/25 09:00 05/07/25 09:20 Eucerin Cream 454 Gm Jar TOPICAL 1 applic DAILY NEIL Administration Multivitamins/Calcium 1 tablet 05/05/25 09:00 05/07/25 09:17 Therapeutic Multivitamins/Minerals Tab (*Bkc) PO 1 tablet DAILY NEIL Administration Ondansetron HCl 4 mg 05/06/25 09:43 05/06/25 17:22 Ondansetron Inj 4 Mg/2 Ml Vial IV PUSH 4 mg Q4H PRN Administration Nausea And Vomiting Oxycodone HCl 2.5 mg 05/05/25 13:45 05/05/25 21:44 Oxycodone Hcl (*Crx) 2.5 Mg Tab Ir PO 2.5 mg Q4H PRN Administration Severe Pain Oxycodone HCl 5 mg 05/05/25 13:53 05/06/25 18:39 Oxycodone Hcl (*Crx) 5 Mg Tab Ir PO 5 mg Q4H PRN Administration Severe Pain Polyethylene Glycol 17 gm 05/07/25 09:00 05/07/25 14:41 Polyethylene Glycol 3350 17 Gm Powd.Pack PO Not Given TID NEIL Potassium Chloride 10 meq 05/05/25 09:00 05/07/25 09:17 Potassium Chloride 10 Meq Er Tablet PO 10 meq DAILY NEIL Administration Senna/Docusate Sodium 1 tab 05/05/25 21:00 05/07/25 20:11 Senna/Docusate Sodium Tablet PO Not Given HS NEIL Sodium Chloride 1 gm 05/06/25 09:00 05/07/25 17:52 Sodium Chloride 1 Gm Tablet PO 1 gm BID NEIL Administration Thiamine HCl 100 mg 05/05/25 09:00 05/07/25 09:17 Thiamine Hcl 100 Mg Tablet PO 100 mg QAM NEIL Administration Radiology Results: ITS Impressions Thoracic/Lumbar Spine CT 05/04/25 14:04 IMPRESSION: Small right pleural effusion. Acute/subacute mild compression fractures at T9, T10, and T12. 5 mm groundglass and 15 mm mixed groundglass/solid right upper lobe pulmonary nodules that have increased in size slightly since the October comparison CT. Recommend biopsy or PET/CT. No acute fracture or traumatic malalignment detected in the lumbar spine. Abdomen X-Ray 05/06/25 19:50 IMPRESSION: Suggestion of gastric fold thickening as can be seen with gastritis or varices. Suggestion of small bowel wall thickening, may reflect enteritis. Head CT 05/06/25 19:54 Impression: No acute intracranial hemorrhage or suspicious mass effect. Abdomen/Pelvis CT 05/06/25 20:40 IMPRESSION: Small volume pericardial fluid versus pericardial thickening. Small right pleural effusion with adjacent atelectasis. Infection not excluded. Moderate gastric distention with prominent folds and may represent gastric varices. Cirrhosis with portal hypertension. Mild gastric distention with prominent gastric folds that may represent gastric varices. Proximal small bowel wall thickening as can be seen with enteritis. Segmental wall thickening in the transverse and sigmoid colon, as can be seen with infectious, inflammatory, or ischemic colitis. Possible mild fecal impaction and constipation. Distended urinary bladder, correlate for urinary retention. Progressive mild-moderate multilevel compression fractures in the thoracic and lumbar spine. Brain MRI 05/07/25 13:49 IMPRESSION: 1. Severely limited study which was terminated prematurely at patient request due to back pain following only the sagittal T1-weighted imaging. Unable to assess for either acute infarction or T2-weighted signal changes and significantly decrease sensitivity for intracranial hemorrhage which was not observed. 2. Mild age-appropriate diffuse volume loss. Labs Labs: Laboratory Results - last 24 hr 05/05/25 05/06/25 05/07/25 14:30 04:34 11:30 WBC RBC Hgb Hct MCV MCH MCHC RDW Plt Count MPV Immature Gran % (Auto) Neut % (Auto) Lymph % (Auto) [place] % (Auto) Eos % (Auto) Baso % (Auto) Lymph # (Auto) [place] # (Auto) Eos # (Auto) Baso # (Auto) Abs Immat Gran (auto) Absolute Neuts (auto) Absolute Nucleated RBC Nucleated RBC % Sodium Potassium Chloride Carbon Dioxide Anion Gap BUN Creatinine Estim Creat Clear Calc Estimated GFR Glucose POC Capillary Glucose 196 H Serum Osmolality 273 L Calcium Magnesium Urine Osmolality 322 05/07/25 05/07/25 05/08/25 16:43 19:47 05:44 WBC 10.5 H RBC 3.34 L Hgb 10.8 L Hct 32.6 L MCV 97.6 MCH 32.3 MCHC 33.1 RDW 15.2 H Plt Count 173 MPV 10.2 Immature Gran % (Auto) 0.3 Neut % (Auto) 80.6 H Lymph % (Auto) 5.7 L [place] % (Auto) 8.3 Eos % (Auto) 4.7 H Baso % (Auto) 0.4 Lymph # (Auto) 0.60 L [place] # (Auto) 0.9 H Eos # (Auto) 0.5 H Baso # (Auto) 0.0 Abs Immat Gran (auto) 0.03 Absolute Neuts (auto) 8.5 H Absolute Nucleated RBC 0.000 Nucleated RBC % 0.0 Sodium 124 L Potassium 3.7 Chloride 92 L Carbon Dioxide 25 Anion Gap 7 BUN 40 H Creatinine 1.63 H Estim Creat Clear Calc 26 Estimated GFR 31 L Glucose 109 POC Capillary Glucose 107 H 135 H Serum Osmolality Calcium 8.7 Magnesium 1.8 Urine Osmolality 05/08/25 07:26 WBC RBC Hgb Hct MCV MCH MCHC RDW Plt Count MPV Immature Gran % (Auto) Neut % (Auto) Lymph % (Auto) [place] % (Auto) Eos % (Auto) Baso % (Auto) Lymph # (Auto) [place] # (Auto) Eos # (Auto) Baso # (Auto) Abs Immat Gran (auto) Absolute Neuts (auto) Absolute Nucleated RBC Nucleated RBC % Sodium Potassium Chloride Carbon Dioxide Anion Gap BUN Creatinine Estim Creat Clear Calc Estimated GFR Glucose POC Capillary Glucose 111 H Serum Osmolality Calcium Magnesium Urine Osmolality Quality VTE Prophylaxis VTE prophylaxis: mechanical ordered Hospitalist MIPS Advance Care Plan I have confirmed that the patient's Advanced Care Plan is present, code status is documented, or surrogate decision maker is listed in patient medical record.: Yes Medication Reconciliation I have utilized all available resources to obtain, update and review the patients current medications (includes all prescriptions, OTC, herbals, cannabis, and nutritional supplements).: Yes
[2025-05-08] MEDS: INSULIN ASPART (*BKC) 100 UNITS/ML SUB-Q ×4 (09:13→17:44)
[2025-05-08] MEDS: LIDOCAINE 5% PATCH 1 PATCH TOPICAL (09:13)
[2025-05-08] MEDS: ATORVASTATIN 10 MG TABLET PO (09:14)
[2025-05-08] MEDS: SODIUM CHLORIDE 1 GM TABLET PO ×2 (09:14→17:44)
[2025-05-08] MEDS: POTASSIUM CHLORIDE 10 MEQ ER TABLET PO (09:14)
[2025-05-08] MEDS: THERAPEUTIC MULTIVITAMINS/MINERALS TAB (*BKC) 1 TABLET PO (09:14)
[2025-05-08] MEDS: FOLIC ACID 0.4 MG TABLET 0.8 MG PO (09:14)
[2025-05-08] MEDS: THIAMINE HCL 100 MG TABLET PO (09:14)
[2025-05-08] MEDS: ASCORBIC ACID 500 MG TABLET PO (09:14)
[2025-05-08] MEDS: ACETAMINOPHEN 500 MG TABLET 1000 MG PO ×3 (09:14→17:44)
[2025-05-08] MEDS: FERROUS SULFATE 325 MG TABLET DR PO (09:14)
[2025-05-08] MEDS: EMPAGLIFLOZIN 10 MG TABLET PO (09:15)
[2025-05-08] MEDS: EUCERIN CREAM 454 GM JAR 1 APPLIC TOPICAL (09:15)
[2025-05-08] MEDS: oxyCODONE HCL (*CRX) 2.5 MG TAB IR PO (11:19)
[2025-05-08] MEDS: oxyCODONE HCL (*CRX) 5 MG TAB IR PO ×2 (11:19→22:09)
--- NOTE | 2025-05-08 13:16 | P.CONNP_ITS ---
Assessment and Plan Assessment and plan (1) Chronic kidney disease, stage 3: Qualifiers: Chronic kidney disease stage 3 subtype: stage 3b (GFR 30-44) Qualified Code(s): N18.32 - Chronic kidney disease, stage 3b Code(s): N18.30 - Chronic kidney disease, stage 3 unspecified Status: Chronic Assessment and Plan: * baseline creatinien runs ~ 1.3 - 1.7mg/dl * this causes her to fluctuate between CKD stage 3A and stage 3B * creatinine has been higher in the due to more aggresive diuresis * presumably related to her CHF, previous HTN (not an issue now), DM, vascular disease, liver disease and need for chronic diuretic therapy (2) Acute on chronic diastolic (congestive) heart failure: Code(s): I50.33 - Acute on chronic diastolic (congestive) heart failure Status: Acute Assessment and Plan: * as noted by clinical exam and imaging to date * last Echo (Oct 2024) with normal systolic function, estimated EF 60 65%, grade 2 diastolic dysfunction. * known history of liver cirrhosis makes edema worse as well * no cxr done but not on oxygen and not soB. * no need for aggressive diuresis now. * follow daily weights and I/Os (3) Chronic anemia: Code(s): D64.9 - Anemia, unspecified Status: Chronic Assessment and Plan: * likely related to CKD and liver disease * hb dropped a bit since admission. * check hb tomorrow. (4) Chronic hyponatremia: Code(s): E87.1 - Hypo-osmolality and hyponatremia Status: Chronic Assessment and Plan: * sodium was stable but today dropped to 124. * chronically low due to chronic diuretic (for edema/chf), chronic outpatient tramadol, diuretics (coleman metolazone), and it doens't sound like she follows a fluid restriction all that well. (pt asking for more fluids today) * she is tretated as an outpt with low dose loop diuretics, salt tabs, and fluid restriction and generally does well. * her sodium was prety good on admission and actually improved but now sodium dropped again. * she is on a heftier dose of narcotics which could be part of the cause. pain does this as well. * will continue fluid restriction, continue salt tabs, and stop the metolazone. * narcotics seem necessary for the pain so I will work around this. 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 * will check another creatinine tomorrow to be sure it doesn't continue to rise. * so is is unclear if this really is CATHRYN. * notably the ct showed a distended bladder. * will check a bladder scan post void and place pleitez if it is high * bumex was held, this may blunt the rise some. History of Present Illness Reason for Consult Consult date: 05/08/25 Chief Complaint Chief complaint: Pain Management/Compression Fractures History of Present Illness Narrative: Lou is a very pleasant 70-year-old lady who has chronic kidney disease stage 3 with a baseline creatinine of 1.1-1.4, sleep apnea, hyperlipidemia, heart disease with diastolic dysfunction, orthostatic hypotension on midodrine, GERD, diabetes, Laennec's cirrhosis of the liver, and chronic hyponatremia. The patient sees Dr. Ann in the office for her CKD as well as the hyponatremia. It is felt the CKD is due to diabetes, hypertension, Sleep apnea, and possibly vascular disease. her kidney function has been relatively stable. The patient also has hyponatremia. This is felt to be due to the cirrhosis, pain meds, alcohol intake. The patient's sodium has been on the low side since 2019 at least. We do not have records from before that. Generally it runs in the low 130s. On admission the patient's sodium was 125 and then dheeraj to 128 but more recently her sodium dropped to 124 so renal consultation was requested. The patient was admitted because of low back pain. the patient was given tramadol and then this was up to oxycodone and also baclofen , gabapentin, and Tylenol were given. neuro surgery was consulted. The patient does have swelling. At home she is on bumetanide , spironolactone, and metolazone for this. Review of Systems 2 Constitutional: Constitutional: Reports no additional constitutional complaints Eyes: Eyes: Reports no additional eye complaints ENT: Reports system reviewed and no additional complaints, except as documented Cardiovascular: Cardiovascular: Reports no additional cardiovascular complaints Respiratory: Respiratory: Reports no additional respiratory complaints Gastrointestinal: Gastrointestinal: Reports no additional gastrointestinal complaints Genitourinary: Genitourinary: Reports no additional female genitourinary complaints Musculoskeletal: Musculoskeletal: Reports no additional musculoskeletal complaints Integumentary/Breasts: Skin/Breast: Reports system reviewed and no additional complaints, except as docu Neurologic: Reports system reviewed and no additional complaints, except as documented Psychiatric: Psychiatric: Reports no additional psychiatric complaints Endocrine: Endocrine: Reports no additional endocrine complaints REPLACED BY [facility] Past Medical History Medical History Chronic venous insufficiency of lower extremity Osteoporosis Gram-negative bacteremia Shingles Stage 3a chronic kidney disease Obesity (BMI 30-39.9) Osteoarthritis ANTHONY (obstructive sleep apnea) Carotid artery disease Alcoholic cirrhosis of liver Diastolic dysfunction ECHO 10/2023: normal LV systolic function, estimated EF of 60-65%, abnormal diastolic dysfunction. Left-sided carotid artery disease US 01/2021: 50 to 69% stenosis of the left ICA. Orthostatic hypotension on midodrine, chronic hypotension, previously caused syncope and frequent falls and subsequent fractures. Alcohol abuse Insulin dependent type 2 diabetes mellitus A1C 5.1% 08/2024 Anemia of chronic disease Chronic hyponatremia Eczema Periprosthetic fracture of femur following total replacement of hip (01/2020) Non operative treatment. Ascites GERD (gastroesophageal reflux disease) Hyperlipidemia, unspecified Surgical History Surgical History Status post open reduction with internal fixation of fracture (05/30/21) ORIF of comminuted intra-articular fracture of the distal left femur, done at [facility]. History of hysterectomy (2005) Due to uterine fibroids and endometriosis. History of bilateral cataract extraction History of lumbar surgery (2005) L1-L3. History of right hip replacement (2005) Per Dr. Curiel in [place]. Family History Family History Father Heart attack Mother Diabetes mellitus COPD (chronic obstructive pulmonary disease) Hypertension Afib Sibling Amputation above knee Diabetes mellitus Father , At age 50 Acute myocardial infarction Sibling , At age 50 Pancreatic cancer Social History Social History Social History: The patient lives in her own home in [place]. She has been twice, her 1st and she has since her 2nd . She has no children. She moved to this area within the last couple of years from [place] to be close to her 3 remaining siblings. She worked from home for a [employer] doing [employer] and she has a master's degree in statistics. She has recently retired.She smoked up to 2 packs of cigarettes a day before quitting in 2005. She drinks 2 mixed drinks a day, each containing a shot of vodka which equals out to about 1 L to 1.7 L of vodka a week. She denies illicit substance use. Surrogate decision maker: Miladys Jensen, sister. Code status: Full code. Smoking packs per day: 2 Smoking cigarettes per day: 40.0 Years smoked: 30 Smoking pack-years: 60.00 Smoking status: Never smoker Smokeless tobacco user: chewing tobacco Second hand tobacco smoke exposure: No Alcohol intake: never Drinks per week: 14 Substance use: never Substance use type: does not use Do You Feel Safe in your Home?: Yes Lack of Transportation: No Lack of Food: Never True Current Housing: I Have Housing Concerned About Future Housing: No Difficulty Paying Gas/Electric Bills: No Difficulty Paying for Meds: No Currently Unemployed: No Education: Decline to Answer Difficulty w/ Childcare or Family Care: No Living arrangements: alone Occupation/Education: retired Gender identity (if verbalized by the patient): Female Sexual Orientation (if Verbalized by the Patient): Straight or Heterosexual Spiritual care concerns: No Meds Home Medications and Allergies Home Medications ?Medication ?Instructions ?Recorded ?Confirmed ?Type fluticasone propionate 50 1 spray intranasal DAILY PRN 08/16/20 05/04/25 History mcg/actuation nasal allergies spray,suspension thiamine HCl (vitamin B1) 100 mg 100 mg PO QAM #30 tabs 08/18/20 05/04/25 Rx tablet (Vitamin B-1) tnwzgudidkoq-Zr-gxum-minerals 1 tablet PO DAILY #30 tabs 01/16/21 05/04/25 Rx (Multiple Vitamin, Womens tablet) blood sugar diagnostic #360 ea 10/31/22 05/04/25 Rx empagliflozin 10 mg tablet 10 mg PO DAILY #30 tabs 10/26/23 05/04/25 Rx (Jardiance) alendronate 70 mg tablet 70 mg PO WEEKLY #12 tabs 12/12/23 05/04/25 Rx ascorbate calcium (vitamin C) 500 500 mg PO DAILY 06/20/24 05/04/25 History mg tablet folic acid 800 mcg tablet 0.8 mg PO DAILY 06/20/24 05/04/25 History pen needle, diabetic 32 gauge x #360 ea 09/11/24 05/04/25 Rx (BD Muriel 2nd Gen Pen Needle) blood-glucose sensor (Dexcom G7 #3 ea 09/13/24 05/04/25 Rx Sensor device) potassium chloride 10 mEq 10 meq PO DAILY #90 caps 09/30/24 05/04/25 Rx capsule,extended release ferrous sulfate 325 mg (65 mg 325 mg PO DAILY 01/16/25 05/04/25 History iron) tablet (Leonard-Time) insulin lispro 100 unit/mL 3 unit subcut TID 01/16/25 05/04/25 History subcutaneous pen (Humalog KwikPen (U-100) Insulin) lanolin alcohols-mineral 1 applic topical DAILY 01/16/25 05/04/25 History oil-w.petrolatum-ceresin topical cream spironolactone 25 mg tablet 50 mg PO QAM 01/31/25 05/04/25 History lidocaine 5 % topical patch 1 patch topical DAILY 03/05/25 05/04/25 History bumetanide 1 mg tablet 1 mg PO BID #60 tabs 04/01/25 05/04/25 Rx metolazone 2.5 mg tablet 2.5 mg PO DAILY 04/01/25 05/04/25 History sodium chloride 1 gram tablet 1,000 mg PO DAILY 04/01/25 05/04/25 History tramadol 50 mg tablet 50 mg PO Q8H PRN pain #30 tabs 04/22/25 05/04/25 Rx atorvastatin 10 mg tablet 10 mg PO QAM #90 tabs 04/28/25 05/04/25 Rx baclofen 10 mg tablet 10 mg PO BID #20 tabs 05/02/25 05/04/25 Rx insulin glargine 100 unit/mL (3 15 unit subcut QPM 05/04/25 05/04/25 History mL) subcutaneous pen (Lantus Solostar U-100 Insulin) methocarbamol 750 mg tablet 750 mg PO TID 05/04/25 05/04/25 History Allergies Allergy/AdvReac Type Severity Reaction Status Date / Time codeine AdvReac Unknown Headache Verified 05/04/25 10:29 Vital Signs Vital Signs - 24 hr 05/07/25 14:00 05/07/25 16:00 05/07/25 20:00 Temperature 97.5 F L Pulse Rate 102 H 101 H Respiratory Rate 16 Blood Pressure 117/54 L 105/52 L Pulse Oximetry 100 Oxygen Delivery Fraction of Inspired Oxygen 05/07/25 20:00 05/07/25 20:00 05/07/25 21:17 Temperature 98.1 F Pulse Rate 102 H 102 H 102 H Respiratory Rate 14 14 Blood Pressure 105/52 L Pulse Oximetry 100 100 Oxygen Delivery Room Air Fraction of Inspired Oxygen 21 05/08/25 00:00 05/08/25 00:00 05/08/25 04:00 Temperature Pulse Rate 94 99 Respiratory Rate Blood Pressure 105/52 L Pulse Oximetry Oxygen Delivery Fraction of Inspired Oxygen 05/08/25 05:34 05/08/25 08:00 Temperature 97.8 F Pulse Rate 100 Respiratory Rate 13 Blood Pressure 108/54 L Pulse Oximetry 100 Oxygen Delivery Room Air Fraction of Inspired Oxygen Exam 2 Narrative: Exam Narrative: Well developed well-nourished female in no acute distress Skin is warm and dry without rash Head normocephalic atraumatic Eyes normal sclerae and conjunctivae Mouth normal lips teeth and gums Neck no nodes no thyromegaly no carotid bruits Axillae no nodes Back no CVA tenderness Lungs symmetric and clear to auscultation and percussion Heart regular rate and rhythm without rub or gallop Abdomen bowel sounds positive soft nontender, no HSM, masses, or bruits. Extremities no cyanosis, clubbing, and 1+ bilateral edema with some venous stasis changes Pulses 2+ equal in radial arteries Psychological not anxious or depressed Neuro alert and oriented x3 motor 5/5 cranial nerves 2-12 intact reflexes 2+ and equal in the biceps and patellar tendons cerebellar normal rapid alternating movements Results Lab Results 05/08/25 05:44 05/08/25 05:44 Lab results: Most recent lab results Calcium 8.7 mg/dL (8.4-10.2) 05/08/25 05:44 Phosphorus 4.1 mg/dL (2.5-4.5) 05/06/25 09:53 Magnesium 1.8 mg/dL (1.6-2.3) 05/08/25 05:44
[2025-05-08] MEDS: INSULIN GLARGINE (*BKC) 100 UNITS/ML 10 UNITS SUB-Q (20:43)
[2025-05-09] VITALS (10 sets, daily range): BP systolic 95–118; BP diastolic 48–68; PULSE 94–107; RESP 16–18; TEMP 36.2–36.8; O2SAT 99–100
[2025-05-09 06:21] LABS: Hematocrit 33.5 % (37.0-47.0); Hemoglobin 10.8 g/dL (12.0-15.0); Immature Granulocyte Percent A 0.4 % (0-0.5); Lymphocytes Absolute Auto 0.61 K/mm3 (0.9-3.2); Mean Corpuscular HGB Conc 32.2 g/dl (32-36); Mean Corpuscular Hemoglobin 32.0 pg (26-34); Mean Corpuscular Volume 99.4 fl (80-100); Nucleated Red Blood Cells Absolute Auto 0.000 K/mm3 (0.0-0.012); Nucleated Red Blood Cells Perc 0.0 % (0.0-0.2); Platelet Count Result 190 k/mm3 (150-375); Red Blood Count 3.37 M/mm3 (4.2-5.4); White Blood Count 9.1 K/mm3 (4.5-10.0)
[2025-05-09 06:47] LABS: Blood Urea Nitrogen 44 mg/dL (7-17); Carbon Dioxide 25 mmol/L (22-30); Estimated CRCL calculation 27 ml/min; Estimated Glomerular Filt Rate 33; Magnesium 1.9 mg/dL (1.6-2.3); Potassium 3.5 mmol/L (3.4-5.0)
[2025-05-09 06:58] LABS: Anion Gap 7 mmol/L (4-12); Calcium 9.0 mg/dL (8.4-10.2); Chloride 97 mmol/L (98-107); Glucose 116 mg/dL (65-110); Sodium 129 mmol/L (137-145)
--- NOTE | 2025-05-09 07:54 | PM.IMPN ---
Progress Note: A&P Assessment and Plan (1) Acute on chronic back pain: Code(s): M54.9 - Dorsalgia, unspecified; G89.29 - Other chronic pain Status: Acute Assessment and Plan: CT thoracic/lumbar, 05/04: Small right pleural effusion. Acute/subacute mild compression fractures at T9, T10, and T12. 5 mm groundglass and 15 mm mixed groundglass/solid right upper lobe pulmonary nodules that have increased in size slightly since the October comparison CT. Recommend biopsy or PET/CT. No acute fracture or traumatic malalignment detected in the lumbar spine. --Uses a wheelchair at baseline. no precipitating trauma. unable to care for herself independently in current state prompting attempt for placement from the ED to acute rehab, unsuccessful. admitted for pain control, PT/OT and placement. - Stopped tramadol, started oxycodone 5-7.5mg, dilaudid prn - consulted neuro surgery, placed a brace --stopped methocarbamol, Decreased Baclofen from 10 BID to 5 TID, now on hold --Scheduled tylenol>650 TID, holding gabapentin 300mg hs --Bowel regimen with opiates (2) Chronic hyponatremia: Code(s): E87.1 - Hypo-osmolality and hyponatremia Status: Chronic Assessment and Plan: - chronic - Na down to 124 - NaCL tab, 1G daily, increased to BID - monitor BMP --Fluid restriction, 1500ml --Consult renal (3) Diabetes mellitus: Qualifiers: Diabetes mellitus complication status: without complication Diabetes mellitus prison insulin use: with prison use Diabetes mellitus type: type 2 Qualified Code(s): E11.9 - Type 2 diabetes mellitus without complications; 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 Has been over 2 previously. - creatinine 1.15, BUN 24, GFR 24 upon initial evaluation. Up to 1.5, holding diuretics temporarily --Had normal kidneys on US earlier this year, UA negative - trend renal function - trend electrolytes, correct as needed --Having urinary retention, straight cathed, now Samuel placed. Void trial prior to discharge (5) Chronic anemia: Code(s): D64.9 - Anemia, unspecified Status: Chronic Assessment and Plan: - Hgb 11.8, previously 8.0 on 02/07 - secondary to chronic disease - transfuse if <7 - monitor (6) Alcoholism: Code(s): F10.20 - Alcohol dependence, uncomplicated Status: Chronic Assessment and Plan: History of alcohol abuse, still has occasional use. Reports she does not withdrawal when she drinks. Monitor. Drinks 3 1-2 inch glasses of vodka with soda a day --CIWA, s/p 1 dose of ativan and slept, but still symptomatic with tremors --scheduled librium 10mg TID yesterday --LIbrium prn (7) Pulmonary nodule: Code(s): R91.1 - Solitary pulmonary nodule Status: Acute Assessment and Plan: Multiple pulmonary nodules on CT, increased in size --Discussed biopsy with radiologist and recommended biopsy over PET scan --NPO for biopsy on Monday (8) Double vision: Code(s): H53.2 - Diplopia Status: Resolved Assessment and Plan: Binocular, also associated with tremors. Both symptoms resolved completely on exam 05/08 S/P Thiamine 500mg IV q8h x3. Also treated possible alcohol withdrawal, ativan 0.25 x1, scheduled librium 10 TID 05/08 --Head CT no acute findings. MRI brain unable to be completed due to low back pain (9) Vomiting: Code(s): R11.10 - Vomiting, unspecified Status: Resolved Assessment and Plan: Zofran prn Plan Diet: Diabetic GI Prophylaxis: N/a DVT Prophylaxis: SCDs IV fluids: None Lines/Tubes: Peripheral IV Code Status: Full code Time Spent With Patient Time: 56 minutes Subjective Date/time seen: 05/09/25 09:20 Interval history: Sodium 124<129 today, improved Biopsy of pulmonary nodule Monday Void trial soon, still needing frequent opiates Still having abdominal bloating/pain GI consulted, planning outpatient fibroscan Unable to get up without assistance due to back pain Review of Systems Review of Systems: All systems reviewed & are unremarkable except as noted in HPI and below Exam Narrative: . General - Awake and alert. No acute distress. Chronically ill appearing Eyes - PERRLA, EOM intact ENT - No thrush, No erythema Neck - No noticeable or palpable swelling Lymph Nodes - No lymphadenopathy Cardiovascular - RRR no m/r/g, no JVD Lungs: Clear to auscultation, No wheezing, use of accessory muscles, no crackles Skin - Skin warm and dry,, no rashes. pressure ulcer to right heel and left buttock Abdomen - Normal bowel sounds, abdomen soft and mildly tender low abdomen, less distended Extremities - No edema, cyanosis or clubbing. woody/erythema to BLE Musculoskeletal - 5/5 strength, normal range of motion, no swollen or erythematous joints. Neurological ? Alert and oriented x 3, No tremors Psych: Normal mood and affect Objective Data Vital Signs Vital Signs: Vital Signs - 24 hr 05/08/25 08:00 05/08/25 08:00 05/08/25 12:00 Temperature Pulse Rate 99 100 Respiratory Rate Blood Pressure Pulse Oximetry Oxygen Delivery Room Air Fraction of Inspired Oxygen 05/08/25 14:00 05/08/25 16:00 05/08/25 20:00 Temperature 97.1 F L Pulse Rate 101 H 102 H 102 H Respiratory Rate 18 16 Blood Pressure 105/53 L Pulse Oximetry 99 100 Oxygen Delivery Room Air Fraction of Inspired Oxygen 21 05/08/25 22:00 05/09/25 00:00 05/09/25 04:00 Temperature 98.2 F Pulse Rate 102 H 97 94 Respiratory Rate 16 Blood Pressure 110/52 L Pulse Oximetry 100 Oxygen Delivery Fraction of Inspired Oxygen 05/09/25 06:00 Temperature 97.9 F Pulse Rate 98 Respiratory Rate 16 Blood Pressure 109/68 Pulse Oximetry 99 Oxygen Delivery Fraction of Inspired Oxygen Intake/Output Intake/Output: Intake & Output 05/06/25 05/07/25 05/08/25 05/09/25 23:59 23:59 23:59 23:59 Intake Total 340 1957 1372 300 Output Total 570 1350 1650 1000 Balance -230 049 -332 -826 Meds/Results Medications: Active Medications Generic Name Dose Route Start Last Admin Trade Name Freq PRN Reason Stop Dose Admin Acetaminophen 1,000 mg 05/05/25 17:00 05/08/25 17:44 Acetaminophen 500 Mg Tablet PO 1,000 mg TID NEIL Administration Ascorbic Acid 500 mg 05/05/25 09:00 05/08/25 09:14 Ascorbic Acid 500 Mg Tablet PO 500 mg DAILY NIEL Administration Atorvastatin Calcium 10 mg 05/05/25 09:00 05/08/25 09:14 Atorvastatin 10 Mg Tablet PO 10 mg QAM NEIL Administration Bumetanide 1 mg 05/04/25 17:00 05/06/25 08:22 Bumetanide 1 Mg Tablet PO 1 mg BID NEIL Administration Chlordiazepoxide HCl 25 mg 05/06/25 11:05 05/06/25 17:18 Chlordiazepoxide (*Crx) 25 Mg Capsule PO 25 mg Q6H PRN Administration Withdrawal Dextrose 12.5 gm 05/04/25 16:57 Dextrose 50% 25 Gm/50 Ml Syringe IV PUSH PRN PRN Hypoglycemia Protocol Empagliflozin 10 mg 05/05/25 09:00 05/08/25 09:15 Empagliflozin 10 Mg Tablet PO 10 mg DAILY NEIL Administration Ferrous Sulfate 325 mg 05/05/25 09:00 05/08/25 09:14 Ferrous Sulfate [address] PO 325 mg DAILY NEIL Administration Fluticasone Propionate 1 spray 05/04/25 16:59 Fluticasone Propionate 0.05% Na Spr 16 Gm Btl (*Bkc) NASAL DAILY PRN allergies Folic Acid 0.8 mg 05/05/25 09:00 05/08/25 09:14 Folic Acid 0.4 Mg Tablet PO 0.8 mg DAILY NEIL Administration Gabapentin 300 mg 05/05/25 21:00 05/05/25 21:28 Gabapentin 300 Mg Capsule PO 300 mg HS NEIL Administration Glucagon 1 mg 05/04/25 16:57 Glucagon For Inj 1 Mg Vial IM PRN PRN Hypoglycemia Protocol Glucose 15 gm 05/04/25 16:57 Glucose Oral Gel 15 Gm Of Glucse In 37.5 Gm Tube PO PRN PRN Hypoglycemia Protocol Hydromorphone HCl 0.5 mg 05/05/25 13:45 05/06/25 22:15 Hydromorphone Hcl Inj (*Crx) 2 Mg/Ml Vial IV PUSH 0.5 mg Q3H PRN Administration Breakthrough Pain Insulin Aspart 4 - 8 units 05/04/25 17:00 05/08/25 17:45 Insulin Aspart (*Bkc) 100 Units/Ml SUB-Q Not Given TIDWM [facility] Protocol Insulin Aspart 3 units 05/04/25 17:20 05/08/25 17:44 Insulin Aspart (*Bkc) 100 Units/Ml SUB-Q 3 units ACINSULIN NEIL Administration Insulin Glargine 10 units 05/08/25 21:00 05/08/25 20:43 Insulin Glargine (*Bkc) 100 Units/Ml SUB-Q 10 units HS NEIL Administration Lidocaine 1 patch 05/05/25 09:00 05/08/25 09:13 Lidocaine 5% Patch TOPICAL 1 patch DAILY NEIL Administration Methocarbamol 750 mg 05/04/25 17:00 05/06/25 17:12 Methocarbamol 750 Mg Tablet PO 750 mg TID NEIL Administration Metolazone 2.5 mg 05/05/25 09:00 05/08/25 09:15 Metolazone 2.5 Mg Tablet PO 2.5 mg DAILY NEIL Administration Multi-Ingred Cream/Lotion/Oil/Oint 1 applic 05/04/25 17:23 Eucerin Cream 454 Gm Jar TOPICAL PRN PRN DRESSING CHANGES Multi-Ingred Cream/Lotion/Oil/Oint 1 applic 05/05/25 09:00 05/08/25 09:15 Eucerin Cream 454 Gm Jar TOPICAL 1 applic DAILY NEIL Administration Multivitamins/Calcium 1 tablet 05/05/25 09:00 05/08/25 09:14 Therapeutic Multivitamins/Minerals Tab (*Bkc) PO 1 tablet DAILY NEIL Administration Ondansetron HCl 4 mg 05/06/25 09:43 05/06/25 17:22 Ondansetron Inj 4 Mg/2 Ml Vial IV PUSH 4 mg Q4H PRN Administration Nausea And Vomiting Oxycodone HCl 2.5 mg 05/05/25 13:45 05/08/25 11:19 Oxycodone Hcl (*Crx) 2.5 Mg Tab Ir PO 2.5 mg Q4H PRN Administration Severe Pain Oxycodone HCl 5 mg 05/05/25 13:53 05/08/25 22:09 Oxycodone Hcl (*Crx) 5 Mg Tab Ir PO 5 mg Q4H PRN Administration Severe Pain Polyethylene Glycol 17 gm 05/07/25 09:00 05/08/25 17:45 Polyethylene Glycol 3350 17 Gm Powd.Pack PO Not Given TID NEIL Potassium Chloride 10 meq 05/05/25 09:00 05/08/25 09:14 Potassium Chloride 10 Meq Er Tablet PO 10 meq DAILY NEIL Administration Senna/Docusate Sodium 1 tab 05/05/25 21:00 05/08/25 20:38 Senna/Docusate Sodium Tablet PO Not Given HS NEIL Sodium Chloride 1 gm 05/06/25 09:00 05/08/25 17:44 Sodium Chloride 1 Gm Tablet PO 1 gm BID NEIL Administration Thiamine HCl 100 mg 05/05/25 09:00 05/08/25 09:14 Thiamine Hcl 100 Mg Tablet PO 100 mg QAM NEIL Administration Radiology Results: ITS Impressions Thoracic/Lumbar Spine CT 05/04/25 14:04 IMPRESSION: Small right pleural effusion. Acute/subacute mild compression fractures at T9, T10, and T12. 5 mm groundglass and 15 mm mixed groundglass/solid right upper lobe pulmonary nodules that have increased in size slightly since the October comparison CT. Recommend biopsy or PET/CT. No acute fracture or traumatic malalignment detected in the lumbar spine. Abdomen X-Ray 05/06/25 19:50 IMPRESSION: Suggestion of gastric fold thickening as can be seen with gastritis or varices. Suggestion of small bowel wall thickening, may reflect enteritis. Head CT 05/06/25 19:54 Impression: No acute intracranial hemorrhage or suspicious mass effect. Abdomen/Pelvis CT 05/06/25 20:40 IMPRESSION: Small volume pericardial fluid versus pericardial thickening. Small right pleural effusion with adjacent atelectasis. Infection not excluded. Moderate gastric distention with prominent folds and may represent gastric varices. Cirrhosis with portal hypertension. Mild gastric distention with prominent gastric folds that may represent gastric varices. Proximal small bowel wall thickening as can be seen with enteritis. Segmental wall thickening in the transverse and sigmoid colon, as can be seen with infectious, inflammatory, or ischemic colitis. Possible mild fecal impaction and constipation. Distended urinary bladder, correlate for urinary retention. Progressive mild-moderate multilevel compression fractures in the thoracic and lumbar spine. Brain MRI 05/07/25 13:49 IMPRESSION: 1. Severely limited study which was terminated prematurely at patient request due to back pain following only the sagittal T1-weighted imaging. Unable to assess for either acute infarction or T2-weighted signal changes and significantly decrease sensitivity for intracranial hemorrhage which was not observed. 2. Mild age-appropriate diffuse volume loss. Labs Labs: Laboratory Results - last 24 hr 05/08/25 05/08/25 05/08/25 11:28 16:14 19:37 WBC RBC Hgb Hct MCV MCH MCHC RDW Plt Count MPV Immature Gran % (Auto) Neut % (Auto) Lymph % (Auto) Ward % (Auto) Eos % (Auto) Baso % (Auto) Lymph # (Auto) Ward # (Auto) Eos # (Auto) Baso # (Auto) Abs Immat Gran (auto) Absolute Neuts (auto) Absolute Nucleated RBC Nucleated RBC % Sodium Potassium Chloride Carbon Dioxide Anion Gap BUN Creatinine Estim Creat Clear Calc Estimated GFR Glucose POC Capillary Glucose 212 H 145 H 126 H Calcium Phosphorus Magnesium 05/09/25 05:34 WBC 9.1 RBC 3.37 L Hgb 10.8 L Hct 33.5 L MCV 99.4 MCH 32.0 MCHC 32.2 RDW 15.1 H Plt Count 190 MPV 10.4 Immature Gran % (Auto) 0.4 Neut % (Auto) 79.4 H Lymph % (Auto) 6.7 L Ward % (Auto) 8.8 H Eos % (Auto) 4.5 H Baso % (Auto) 0.2 Lymph # (Auto) 0.61 L Ward # (Auto) 0.8 H Eos # (Auto) 0.4 H Baso # (Auto) 0.0 Abs Immat Gran (auto) 0.04 H Absolute Neuts (auto) 7.2 H Absolute Nucleated RBC 0.000 Nucleated RBC % 0.0 Sodium 129 L Potassium 3.5 Chloride 97 L Carbon Dioxide 25 Anion Gap 7 BUN 44 H Creatinine 1.56 H Estim Creat Clear Calc 27 Estimated GFR 33 L Glucose 116 H POC Capillary Glucose Calcium 9.0 Phosphorus 3.4 Magnesium 1.9 Quality VTE Prophylaxis VTE prophylaxis: mechanical ordered Hospitalist MIPS Advance Care Plan I have confirmed that the patient's Advanced Care Plan is present, code status is documented, or surrogate decision maker is listed in patient medical record.: Yes Medication Reconciliation I have utilized all available resources to obtain, update and review the patients current medications (includes all prescriptions, OTC, herbals, cannabis, and nutritional supplements).: Yes
--- NOTE | 2025-05-09 08:40 | PCOTNOTE ---
Patient out of the room at this time, Patient down for for testing. Will check back at a later time.
[2025-05-09] MEDS: SODIUM CHLORIDE 1 GM TABLET PO ×2 (11:03→17:23)
[2025-05-09] MEDS: EMPAGLIFLOZIN 10 MG TABLET PO (11:03)
[2025-05-09] MEDS: ACETAMINOPHEN 500 MG TABLET 1000 MG PO ×2 (11:03→17:23)
[2025-05-09] MEDS: FOLIC ACID 0.4 MG TABLET 0.8 MG PO (11:03)
[2025-05-09] MEDS: FERROUS SULFATE 325 MG TABLET DR PO (11:03)
[2025-05-09] MEDS: ASCORBIC ACID 500 MG TABLET PO (11:03)
[2025-05-09] MEDS: POTASSIUM CHLORIDE 10 MEQ ER TABLET PO (11:03)
[2025-05-09] MEDS: THERAPEUTIC MULTIVITAMINS/MINERALS TAB (*BKC) 1 TABLET PO (11:04)
[2025-05-09] MEDS: ATORVASTATIN 10 MG TABLET PO (11:04)
[2025-05-09] MEDS: THIAMINE HCL 100 MG TABLET PO (11:04)
[2025-05-09] MEDS: EUCERIN CREAM 454 GM JAR 1 APPLIC TOPICAL (11:05)
[2025-05-09] MEDS: INSULIN ASPART (*BKC) 100 UNITS/ML SUB-Q ×2 (13:29→19:17)
--- NOTE | 2025-05-09 13:41 | P.PNNP_ITS ---
Progress Note: A&P Assessment and Plan (1) Chronic kidney disease, stage 3: Qualifiers: Chronic kidney disease stage 3 subtype: stage 3b (GFR 30-44) Qualified Code(s): N18.32 - Chronic kidney disease, stage 3b Code(s): N18.30 - Chronic kidney disease, stage 3 unspecified Status: Chronic Assessment and Plan: * baseline creatinien runs ~ 1.3 - 1.7mg/dl * this causes her to fluctuate between CKD stage 3A and stage 3B * creatinine has been higher in the due to more aggresive diuresis * presumably related to her CHF, previous HTN (not an issue now), DM, vascular disease, liver disease and need for chronic diuretic therapy (2) Acute on chronic diastolic (congestive) heart failure: Code(s): I50.33 - Acute on chronic diastolic (congestive) heart failure Status: Acute Assessment and Plan: * as noted by clinical exam and imaging to date * last Echo (Oct 2024) with normal systolic function, estimated EF 60 65%, grade 2 diastolic dysfunction. * known history of liver cirrhosis makes edema worse as well * no cxr done but not on oxygen and not soB. * no need for aggressive diuresis now. * follow daily weights and I/Os (3) Chronic anemia: Code(s): D64.9 - Anemia, unspecified Status: Chronic Assessment and Plan: * likely related to CKD and liver disease * hb Stable at 10.8. (4) Chronic hyponatremia: Code(s): E87.1 - Hypo-osmolality and hyponatremia Status: Chronic Assessment and Plan: * sodium was stable but today dropped to 124. * chronically low due to chronic diuretic (for edema/chf), chronic outpatient tramadol, diuretics (coleman metolazone), and it doens't sound like she follows a fluid restriction all that well. (pt asking for more fluids today) * she is tretated as an outpt with low dose loop diuretics, salt tabs, and fluid restriction and generally does well. * her sodium was prety good on admission and actually improved but now sodium dropped again. * she is on a heftier dose of narcotics which could be part of the cause. pain does this as well. * narcotics seem necessary for the pain so I will work around this. * Currently on 1500cc fluid restriction As well as salt tablets 1g b.i.d.. * If sodium level is higher tomorrow then we can increase fluid intake a little bit. However, fluid restriction is the main way to control sodium.. 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 (7) CATHRYN (acute kidney injury): Code(s): N17.9 - Acute kidney failure, unspecified Status: Acute Assessment and Plan: * baseline creatinine runs around 1.5 to 2 * creatinine was lower than normal on admission and now has risen to it's usual. * will check another creatinine tomorrow to be sure it doesn't continue to rise. * so is is unclear if this really is CATHRYN. * notably the ct showed a distended bladder. * will check a bladder scan post void and place pleitez if it is high * bumex was held, this may blunt the rise some. Subjective Date/time seen: 05/09/25 13:41 Interval history: patient feels okay. No chest pain or shortness of breath. No swelling. Asking for a little more fluid. Review of Systems Cardiovascular: Cardiovascular: Reports no additional cardiovascular complaints Respiratory: Respiratory: Reports no additional respiratory complaints Gastrointestinal: Gastrointestinal: Reports no additional gastrointestinal complaints Genitourinary: Genitourinary: Reports no additional female genitourinary complaints Exam Narrative: WDWN in NAD skin no rash head ncat lungs clear cor reg no rub abd BS+ nontender and soft ext no edema. Objective Data Vital Signs Vital Signs: Vital Signs - 24 hr 05/08/25 14:00 05/08/25 16:00 05/08/25 20:00 Temperature 97.1 F L Pulse Rate 101 H 102 H 102 H Respiratory Rate 18 16 Blood Pressure 105/53 L Pulse Oximetry 99 100 Oxygen Delivery Room Air Fraction of Inspired Oxygen 21 05/08/25 22:00 05/09/25 00:00 05/09/25 04:00 Temperature 98.2 F Pulse Rate 102 H 97 94 Respiratory Rate 16 Blood Pressure 110/52 L Pulse Oximetry 100 Oxygen Delivery Fraction of Inspired Oxygen 05/09/25 06:00 05/09/25 08:00 05/09/25 08:00 Temperature 97.9 F Pulse Rate 98 97 Respiratory Rate 16 Blood Pressure 109/68 Pulse Oximetry 99 Oxygen Delivery Room Air Fraction of Inspired Oxygen 05/09/25 08:30 Temperature Pulse Rate Respiratory Rate Blood Pressure Pulse Oximetry 99 Oxygen Delivery Room Air Fraction of Inspired Oxygen 21 Intake/Output Intake/Output: Intake & Output 05/06/25 05/07/25 05/08/25 05/09/25 23:59 23:59 23:59 23:59 Intake Total 340 1957 1372 522 Output Total 570 1350 1650 1000 Balance -230 623 -278 -248 Meds/Results Medications: Active Medications Generic Name Dose Route Start Last Admin Trade Name Freq PRN Reason Stop Dose Admin Acetaminophen 1,000 mg 05/05/25 17:00 05/09/25 12:11 Acetaminophen 500 Mg Tablet PO Not Given TID NEIL Ascorbic Acid 500 mg 05/05/25 09:00 05/09/25 11:03 Ascorbic Acid 500 Mg Tablet PO 500 mg DAILY NEIL Administration Atorvastatin Calcium 10 mg 05/05/25 09:00 05/09/25 11:04 Atorvastatin 10 Mg Tablet PO 10 mg QAM NEIL Administration Bumetanide 1 mg 05/04/25 17:00 05/06/25 08:22 Bumetanide 1 Mg Tablet PO 1 mg BID NEIL Administration Chlordiazepoxide HCl 25 mg 05/06/25 11:05 05/06/25 17:18 Chlordiazepoxide (*Crx) 25 Mg Capsule PO 25 mg Q6H PRN Administration Withdrawal Dextrose 12.5 gm 05/04/25 16:57 Dextrose 50% 25 Gm/50 Ml Syringe IV PUSH PRN PRN Hypoglycemia Protocol Empagliflozin 10 mg 05/05/25 09:00 05/09/25 11:03 Empagliflozin 10 Mg Tablet PO 10 mg DAILY NEIL Administration Ferrous Sulfate 325 mg 05/05/25 09:00 05/09/25 11:03 Ferrous Sulfate [address] PO 325 mg DAILY NEIL Administration Fluticasone Propionate 1 spray 05/04/25 16:59 Fluticasone Propionate 0.05% Na Spr 16 Gm Btl (*Bkc) NASAL DAILY PRN allergies Folic Acid 0.8 mg 05/05/25 09:00 05/09/25 11:03 Folic Acid 0.4 Mg Tablet PO 0.8 mg DAILY NEIL Administration Gabapentin 300 mg 05/05/25 21:00 05/05/25 21:28 Gabapentin 300 Mg Capsule PO 300 mg HS NEIL Administration Glucagon 1 mg 05/04/25 16:57 Glucagon For Inj 1 Mg Vial IM PRN PRN Hypoglycemia Protocol Glucose 15 gm 05/04/25 16:57 Glucose Oral Gel 15 Gm Of Glucse In 37.5 Gm Tube PO PRN PRN Hypoglycemia Protocol Hydromorphone HCl 0.5 mg 05/05/25 13:45 05/06/25 22:15 Hydromorphone Hcl Inj (*Crx) 2 Mg/Ml Vial IV PUSH 0.5 mg Q3H PRN Administration Breakthrough Pain Insulin Aspart 4 - 8 units 05/04/25 17:00 05/09/25 12:11 Insulin Aspart (*Bkc) 100 Units/Ml SUB-Q Not Given TIDWM NEIL Protocol Insulin Aspart 3 units 05/04/25 17:20 05/09/25 13:29 Insulin Aspart (*Bkc) 100 Units/Ml SUB-Q 3 units ACINSULIN NEIL Administration Insulin Glargine 10 units 05/08/25 21:00 05/08/25 20:43 Insulin Glargine (*Bkc) 100 Units/Ml SUB-Q 10 units HS NEIL Administration Lidocaine 1 patch 05/05/25 09:00 05/09/25 11:05 Lidocaine 5% Patch TOPICAL Not Given DAILY NEIL Methocarbamol 750 mg 05/04/25 17:00 05/06/25 17:12 Methocarbamol 750 Mg Tablet PO 750 mg TID NEIL Administration Multi-Ingred Cream/Lotion/Oil/Oint 1 applic 05/04/25 17:23 Eucerin Cream 454 Gm Jar TOPICAL PRN PRN DRESSING CHANGES Multi-Ingred Cream/Lotion/Oil/Oint 1 applic 05/05/25 09:00 05/09/25 11:05 Eucerin Cream 454 Gm Jar TOPICAL 1 applic DAILY NEIL Administration Multivitamins/Calcium 1 tablet 05/05/25 09:00 05/09/25 11:04 Therapeutic Multivitamins/Minerals Tab (*Bkc) PO 1 tablet DAILY NEIL Administration Ondansetron HCl 4 mg 05/06/25 09:43 05/06/25 17:22 Ondansetron Inj 4 Mg/2 Ml Vial IV PUSH 4 mg Q4H PRN Administration Nausea And Vomiting Oxycodone HCl 2.5 mg 05/05/25 13:45 05/08/25 11:19 Oxycodone Hcl (*Crx) 2.5 Mg Tab Ir PO 2.5 mg Q4H PRN Administration Severe Pain Oxycodone HCl 5 mg 05/05/25 13:53 05/08/25 22:09 Oxycodone Hcl (*Crx) 5 Mg Tab Ir PO 5 mg Q4H PRN Administration Severe Pain Polyethylene Glycol 17 gm 05/07/25 09:00 05/09/25 12:11 Polyethylene Glycol 3350 17 Gm Powd.Pack PO Not Given TID NEIL Potassium Chloride 10 meq 05/05/25 09:00 05/09/25 11:03 Potassium Chloride 10 Meq Er Tablet PO 10 meq DAILY NEIL Administration Senna/Docusate Sodium 1 tab 05/05/25 21:00 05/08/25 20:38 Senna/Docusate Sodium Tablet PO Not Given HS NEIL Sodium Chloride 1 gm 05/06/25 09:00 05/09/25 11:03 Sodium Chloride 1 Gm Tablet PO 1 gm BID NEIL Administration Thiamine HCl 100 mg 05/05/25 09:00 05/09/25 11:04 Thiamine Hcl 100 Mg Tablet PO 100 mg QAM NEIL Administration Radiology Results: ITS Impressions Thoracic/Lumbar Spine CT 05/04/25 14:04 IMPRESSION: Small right pleural effusion. Acute/subacute mild compression fractures at T9, T10, and T12. 5 mm groundglass and 15 mm mixed groundglass/solid right upper lobe pulmonary nodules that have increased in size slightly since the October comparison CT. Recommend biopsy or PET/CT. No acute fracture or traumatic malalignment detected in the lumbar spine. Abdomen X-Ray 05/06/25 19:50 IMPRESSION: Suggestion of gastric fold thickening as can be seen with gastritis or varices. Suggestion of small bowel wall thickening, may reflect enteritis. Head CT 05/06/25 19:54 Impression: No acute intracranial hemorrhage or suspicious mass effect. Abdomen/Pelvis CT 05/06/25 20:40 IMPRESSION: Small volume pericardial fluid versus pericardial thickening. Small right pleural effusion with adjacent atelectasis. Infection not excluded. Moderate gastric distention with prominent folds and may represent gastric varices. Cirrhosis with portal hypertension. Mild gastric distention with prominent gastric folds that may represent gastric varices. Proximal small bowel wall thickening as can be seen with enteritis. Segmental wall thickening in the transverse and sigmoid colon, as can be seen with infectious, inflammatory, or ischemic colitis. Possible mild fecal impaction and constipation. Distended urinary bladder, correlate for urinary retention. Progressive mild-moderate multilevel compression fractures in the thoracic and lumbar spine. Brain MRI 05/07/25 13:49 IMPRESSION: 1. Severely limited study which was terminated prematurely at patient request due to back pain following only the sagittal T1-weighted imaging. Unable to assess for either acute infarction or T2-weighted signal changes and significantly decrease sensitivity for intracranial hemorrhage which was not observed. 2. Mild age-appropriate diffuse volume loss. Ankle Brachial Index 05/09/25 09:11 IMPRESSION: 1. Diminished bilateral toe brachial indices consistent with peripheral arterial disease. Labs Labs: Laboratory Results - last 24 hr 05/08/25 05/08/25 05/09/25 16:14 19:37 05:34 WBC 9.1 RBC 3.37 L Hgb 10.8 L Hct 33.5 L MCV 99.4 MCH 32.0 MCHC 32.2 RDW 15.1 H Plt Count 190 MPV 10.4 Immature Gran % (Auto) 0.4 Neut % (Auto) 79.4 H Lymph % (Auto) 6.7 L Power % (Auto) 8.8 H Eos % (Auto) 4.5 H Baso % (Auto) 0.2 Lymph # (Auto) 0.61 L Power # (Auto) 0.8 H Eos # (Auto) 0.4 H Baso # (Auto) 0.0 Abs Immat Gran (auto) 0.04 H Absolute Neuts (auto) 7.2 H Absolute Nucleated RBC 0.000 Nucleated RBC % 0.0 Sodium 129 L Potassium 3.5 Chloride 97 L Carbon Dioxide 25 Anion Gap 7 BUN 44 H Creatinine 1.56 H Estim Creat Clear Calc 27 Estimated GFR 33 L Glucose 116 H POC Capillary Glucose 145 H 126 H Calcium 9.0 Phosphorus 3.4 Magnesium 1.9 05/09/25 05/09/25 07:49 11:52 WBC RBC Hgb Hct MCV MCH MCHC RDW Plt Count MPV Immature Gran % (Auto) Neut % (Auto) Lymph % (Auto) Power % (Auto) Eos % (Auto) Baso % (Auto) Lymph # (Auto) Power # (Auto) Eos # (Auto) Baso # (Auto) Abs Immat Gran (auto) Absolute Neuts (auto) Absolute Nucleated RBC Nucleated RBC % Sodium Potassium Chloride Carbon Dioxide Anion Gap BUN Creatinine Estim Creat Clear Calc Estimated GFR Glucose POC Capillary Glucose 106 H 106 H Calcium Phosphorus Magnesium
[2025-05-09] MEDS: SENNA/DOCUSATE SODIUM TABLET 1 TAB PO (20:40)
[2025-05-09] MEDS: oxyCODONE HCL (*CRX) 5 MG TAB IR PO (20:40)
[2025-05-09] MEDS: INSULIN GLARGINE (*BKC) 100 UNITS/ML 10 UNITS SUB-Q (20:44)
[2025-05-10] MEDS: oxyCODONE HCL (*CRX) 5 MG TAB IR PO ×3 (00:42→20:43)
[2025-05-10 05:49] VITALS: BP 104/56; PULSE 95; RESP 16; TEMP 36.7; O2SAT 100
[2025-05-10 06:47] LABS: Hematocrit 36.3 % (37.0-47.0); Hemoglobin 11.6 g/dL (12.0-15.0); Immature Granulocyte Percent A 0.7 % (0-0.5); Lymphocytes Absolute Auto 0.68 K/mm3 (0.9-3.2); Mean Corpuscular HGB Conc 32.0 g/dl (32-36); Mean Corpuscular Hemoglobin 32.9 pg (26-34); Mean Corpuscular Volume 102.8 fl (80-100); Nucleated Red Blood Cells Absolute Auto 0.000 K/mm3 (0.0-0.012); Nucleated Red Blood Cells Perc 0.0 % (0.0-0.2); Platelet Count Result 207 k/mm3 (150-375); Red Blood Count 3.53 M/mm3 (4.2-5.4); White Blood Count 7.6 K/mm3 (4.5-10.0)
[2025-05-10 07:02] LABS: Anion Gap 10 mmol/L (4-12); Blood Urea Nitrogen 38 mg/dL (7-17); Calcium 9.1 mg/dL (8.4-10.2); Carbon Dioxide 23 mmol/L (22-30); Chloride 99 mmol/L (98-107); Estimated CRCL calculation 34 ml/min; Estimated Glomerular Filt Rate 43; Glucose 118 mg/dL (65-110); Potassium 3.3 mmol/L (3.4-5.0); Sodium 132 mmol/L (137-145)
[2025-05-10 08:00] VITALS: PULSE 95; RESP 16; O2SAT 100
[2025-05-10] MEDS: EMPAGLIFLOZIN 10 MG TABLET PO (09:20)
[2025-05-10] MEDS: FERROUS SULFATE 325 MG TABLET DR PO (09:20)
[2025-05-10] MEDS: THERAPEUTIC MULTIVITAMINS/MINERALS TAB (*BKC) 1 TABLET PO (09:20)
[2025-05-10] MEDS: ASCORBIC ACID 500 MG TABLET PO (09:20)
[2025-05-10] MEDS: THIAMINE HCL 100 MG TABLET PO (09:20)
[2025-05-10] MEDS: ACETAMINOPHEN 500 MG TABLET 1000 MG PO ×3 (09:20→18:19)
[2025-05-10] MEDS: ATORVASTATIN 10 MG TABLET PO (09:20)
[2025-05-10] MEDS: FOLIC ACID 0.4 MG TABLET 0.8 MG PO (09:20)
[2025-05-10] MEDS: INSULIN ASPART (*BKC) 100 UNITS/ML SUB-Q ×3 (09:20→18:19)
[2025-05-10] MEDS: POTASSIUM CHLORIDE 10 MEQ ER TABLET PO (09:20)
[2025-05-10] MEDS: SODIUM CHLORIDE 1 GM TABLET PO ×2 (09:20→18:19)
[2025-05-10] MEDS: EUCERIN CREAM 454 GM JAR 1 APPLIC TOPICAL (09:20)
--- NOTE | 2025-05-10 11:04 | PM.PNNEP ---
Progress Note: A&P Assessment and Plan (1) Chronic kidney disease, stage 3: Qualifiers: Chronic kidney disease stage 3 subtype: stage 3b (GFR 30-44) Qualified Code(s): N18.32 - Chronic kidney disease, stage 3b Code(s): N18.30 - Chronic kidney disease, stage 3 unspecified Status: Chronic Assessment and Plan: baseline creatinien runs ~ 1.3 - 1.7mg/dl this causes her to fluctuate between CKD stage 3A and stage 3B creatinine has been higher in the due to more aggresive diuresis presumably related to her CHF, previous HTN (not an issue now), DM, vascular disease, liver disease and need for chronic diuretic therapy (2) Acute on chronic diastolic (congestive) heart failure: Code(s): I50.33 - Acute on chronic diastolic (congestive) heart failure Status: Acute Assessment and Plan: Creatinine did rise to 1.6 couple of days ago but since then has fallen to her baseline (3) Chronic anemia: Code(s): D64.9 - Anemia, unspecified Status: Chronic Assessment and Plan: likely related to CKD and liver disease hb improved at 11.6 (4) Chronic hyponatremia: Code(s): E87.1 - Hypo-osmolality and hyponatremia Status: Chronic Assessment and Plan: sodium was stable but then dropped to 124 but this has improved and is now up to 132 over couple of days. chronically low due to chronic diuretic (for edema/chf), chronic outpatient tramadol, diuretics (coleman metolazone), and it doens't sound like she follows a fluid restriction all that well. (pt asking for more fluids today) she is tretated as an outpt with low dose loop diuretics, salt tabs, and fluid restriction and generally does well. She is on the bumetanide cut she swells without it. So she is on salt tablets to keep the bumetanide from dropping the sodium and on a fluid restriction to help the sodium. She was on both medicines when she came in and while here but now that we have instituted the fluid restriction the sodium level is coming up. I think we can ease up on the fluid restriction now. 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 (7) CATHRYN (acute kidney injury): Code(s): N17.9 - Acute kidney failure, unspecified Status: Acute Assessment and Plan: baseline creatinine runs around 1.5 to 2 Her GFR seems to his improved a little bit while here; perhaps due to bedrest in lower creatinine generation? Subjective Date/time seen: 05/10/25 11:04 Interval history: Jennyfer feels better. Still thirsty Eating okay Exam Narrative: WDWN in NAD skin no rash or subQ not head ncat lungs clear bilateral cor reg no rub abd BS+ nontender and soft ext no edema. Objective Data Vital Signs Vital Signs: Vital Signs - 24 hr 05/09/25 12:00 05/09/25 14:00 05/09/25 20:00 Temperature 97.1 F L Pulse Rate 107 H 100 98 Respiratory Rate 18 16 Blood Pressure 118/54 L Pulse Oximetry 100 100 Oxygen Delivery Room Air Fraction of Inspired Oxygen 21 05/09/25 22:00 05/09/25 22:17 05/10/25 05:49 Temperature 98.2 F 98.1 F Pulse Rate 98 95 Respiratory Rate 16 16 Blood Pressure 95/48 L 104/56 L Pulse Oximetry 100 100 100 Oxygen Delivery Room Air Fraction of Inspired Oxygen Intake/Output Intake/Output: Intake & Output 05/07/25 05/08/25 05/09/25 05/10/25 23:59 23:59 23:59 23:59 Intake Total 1957 1372 1002 300 Output Total 1350 1650 2250 1150 Balance 607 -278 -1248 -850 Meds/Results Medications: Active Medications Generic Name Dose Route Start Last Admin Trade Name Freq PRN Reason Stop Dose Admin Acetaminophen 1,000 mg 05/05/25 17:00 05/10/25 09:20 Acetaminophen 500 Mg Tablet PO 1,000 mg TID NEIL Administration Ascorbic Acid 500 mg 05/05/25 09:00 05/10/25 09:20 Ascorbic Acid 500 Mg Tablet PO 500 mg DAILY NEIL Administration Atorvastatin Calcium 10 mg 05/05/25 09:00 05/10/25 09:20 Atorvastatin 10 Mg Tablet PO 10 mg QAM NEIL Administration Bumetanide 1 mg 05/04/25 17:00 05/06/25 08:22 Bumetanide 1 Mg Tablet PO 1 mg BID NEIL Administration Chlordiazepoxide HCl 25 mg 05/06/25 11:05 05/06/25 17:18 Chlordiazepoxide (*Crx) 25 Mg Capsule PO 25 mg Q6H PRN Administration Withdrawal Dextrose 12.5 gm 05/04/25 16:57 Dextrose 50% 25 Gm/50 Ml Syringe IV PUSH PRN PRN Hypoglycemia Protocol Empagliflozin 10 mg 05/05/25 09:00 05/10/25 09:20 Empagliflozin 10 Mg Tablet PO 10 mg DAILY NEIL Administration Ferrous Sulfate 325 mg 05/05/25 09:00 05/10/25 09:20 Ferrous Sulfate [address] PO 325 mg DAILY NEIL Administration Fluticasone Propionate 1 spray 05/04/25 16:59 Fluticasone Propionate 0.05% Na Spr 16 Gm Btl (*Bkc) NASAL DAILY PRN allergies Folic Acid 0.8 mg 05/05/25 09:00 05/10/25 09:20 Folic Acid 0.4 Mg Tablet PO 0.8 mg DAILY NEIL Administration Gabapentin 300 mg 05/05/25 21:00 05/05/25 21:28 Gabapentin 300 Mg Capsule PO 300 mg HS NEIL Administration Glucagon 1 mg 05/04/25 16:57 Glucagon For Inj 1 Mg Vial IM PRN PRN Hypoglycemia Protocol Glucose 15 gm 05/04/25 16:57 Glucose Oral Gel 15 Gm Of Glucse In 37.5 Gm Tube PO PRN PRN Hypoglycemia Protocol Hydromorphone HCl 0.5 mg 05/05/25 13:45 05/06/25 22:15 Hydromorphone Hcl Inj (*Crx) 2 Mg/Ml Vial IV PUSH 0.5 mg Q3H PRN Administration Breakthrough Pain Insulin Aspart 4 - 8 units 05/04/25 17:00 05/10/25 09:16 Insulin Aspart (*Bkc) 100 Units/Ml SUB-Q Not Given TIDWM [facility] Protocol Insulin Aspart 3 units 05/04/25 17:20 05/10/25 09:20 Insulin Aspart (*Bkc) 100 Units/Ml SUB-Q 3 units ACINSULIN NEIL Administration Insulin Glargine 10 units 05/08/25 21:00 05/09/25 20:44 Insulin Glargine (*Bkc) 100 Units/Ml SUB-Q 10 units HS NEIL Administration Lidocaine 1 patch 05/05/25 09:00 05/10/25 09:19 Lidocaine 5% Patch TOPICAL Not Given DAILY NEIL Methocarbamol 750 mg 05/04/25 17:00 05/06/25 17:12 Methocarbamol 750 Mg Tablet PO 750 mg TID NEIL Administration Multi-Ingred Cream/Lotion/Oil/Oint 1 applic 05/04/25 17:23 Eucerin Cream 454 Gm Jar TOPICAL PRN PRN DRESSING CHANGES Multi-Ingred Cream/Lotion/Oil/Oint 1 applic 05/05/25 09:00 05/10/25 09:20 Eucerin Cream 454 Gm Jar TOPICAL 1 applic DAILY NEIL Administration Multivitamins/Calcium 1 tablet 05/05/25 09:00 05/10/25 09:20 Therapeutic Multivitamins/Minerals Tab (*Bkc) PO 1 tablet DAILY NEIL Administration Ondansetron HCl 4 mg 05/06/25 09:43 05/06/25 17:22 Ondansetron Inj 4 Mg/2 Ml Vial IV PUSH 4 mg Q4H PRN Administration Nausea And Vomiting Oxycodone HCl 2.5 mg 05/05/25 13:45 05/08/25 11:19 Oxycodone Hcl (*Crx) 2.5 Mg Tab Ir PO 2.5 mg Q4H PRN Administration Severe Pain Oxycodone HCl 5 mg 05/05/25 13:53 05/10/25 06:39 Oxycodone Hcl (*Crx) 5 Mg Tab Ir PO 5 mg Q4H PRN Administration Severe Pain Polyethylene Glycol 17 gm 05/07/25 09:00 05/10/25 09:19 Polyethylene Glycol 3350 17 Gm Powd.Pack PO Not Given TID NEIL Potassium Chloride 10 meq 05/05/25 09:00 05/10/25 09:20 Potassium Chloride 10 Meq Er Tablet PO 10 meq DAILY NEIL Administration Senna/Docusate Sodium 1 tab 05/05/25 21:00 05/09/25 20:40 Senna/Docusate Sodium Tablet PO 1 tab HS NEIL Administration Sodium Chloride 1 gm 05/06/25 09:00 05/10/25 09:20 Sodium Chloride 1 Gm Tablet PO 1 gm BID NEIL Administration Thiamine HCl 100 mg 05/05/25 09:00 05/10/25 09:20 Thiamine Hcl 100 Mg Tablet PO 100 mg QAM NEIL Administration Radiology Results: ITS Impressions Thoracic/Lumbar Spine CT 05/04/25 14:04 IMPRESSION: Small right pleural effusion. Acute/subacute mild compression fractures at T9, T10, and T12. 5 mm groundglass and 15 mm mixed groundglass/solid right upper lobe pulmonary nodules that have increased in size slightly since the October comparison CT. Recommend biopsy or PET/CT. No acute fracture or traumatic malalignment detected in the lumbar spine. Abdomen X-Ray 05/06/25 19:50 IMPRESSION: Suggestion of gastric fold thickening as can be seen with gastritis or varices. Suggestion of small bowel wall thickening, may reflect enteritis. Head CT 05/06/25 19:54 Impression: No acute intracranial hemorrhage or suspicious mass effect. Abdomen/Pelvis CT 05/06/25 20:40 IMPRESSION: Small volume pericardial fluid versus pericardial thickening. Small right pleural effusion with adjacent atelectasis. Infection not excluded. Moderate gastric distention with prominent folds and may represent gastric varices. Cirrhosis with portal hypertension. Mild gastric distention with prominent gastric folds that may represent gastric varices. Proximal small bowel wall thickening as can be seen with enteritis. Segmental wall thickening in the transverse and sigmoid colon, as can be seen with infectious, inflammatory, or ischemic colitis. Possible mild fecal impaction and constipation. Distended urinary bladder, correlate for urinary retention. Progressive mild-moderate multilevel compression fractures in the thoracic and lumbar spine. Brain MRI 05/07/25 13:49 IMPRESSION: 1. Severely limited study which was terminated prematurely at patient request due to back pain following only the sagittal T1-weighted imaging. Unable to assess for either acute infarction or T2-weighted signal changes and significantly decrease sensitivity for intracranial hemorrhage which was not observed. 2. Mild age-appropriate diffuse volume loss. Ankle Brachial Index 05/09/25 09:11 IMPRESSION: 1. Diminished bilateral toe brachial indices consistent with peripheral arterial disease. Labs Labs: Laboratory Results - last 24 hr 05/09/25 05/09/25 05/09/25 11:52 16:44 19:52 WBC RBC Hgb Hct MCV MCH MCHC RDW Plt Count MPV Immature Gran % (Auto) Neut % (Auto) Lymph % (Auto) [place] % (Auto) Eos % (Auto) Baso % (Auto) Lymph # (Auto) [place] # (Auto) Eos # (Auto) Baso # (Auto) Abs Immat Gran (auto) Absolute Neuts (auto) Absolute Nucleated RBC Nucleated RBC % Sodium Potassium Chloride Carbon Dioxide Anion Gap BUN Creatinine Estim Creat Clear Calc Estimated GFR Glucose POC Capillary Glucose 106 H 163 H 223 H Calcium 05/10/25 05/10/25 06:24 08:05 WBC 7.6 RBC 3.53 L Hgb 11.6 L Hct 36.3 L MCV 102.8 H MCH 32.9 MCHC 32.0 RDW 15.0 H Plt Count 207 MPV 10.5 H Immature Gran % (Auto) 0.7 H Neut % (Auto) 74.3 H Lymph % (Auto) 9.0 L [place] % (Auto) 9.1 H Eos % (Auto) 6.2 H Baso % (Auto) 0.7 Lymph # (Auto) 0.68 L [place] # (Auto) 0.7 H Eos # (Auto) 0.5 H Baso # (Auto) 0.1 Abs Immat Gran (auto) 0.05 H Absolute Neuts (auto) 5.6 Absolute Nucleated RBC 0.000 Nucleated RBC % 0.0 Sodium 132 L Potassium 3.3 L Chloride 99 Carbon Dioxide 23 Anion Gap 10 BUN 38 H Creatinine 1.22 H Estim Creat Clear Calc 34 Estimated GFR 43 L Glucose 118 H POC Capillary Glucose 115 H Calcium 9.1
--- NOTE | 2025-05-10 13:01 | P.PNIM_ITS ---
Progress Note: A&P Assessment and Plan (1) Acute on chronic back pain: Code(s): M54.9 - Dorsalgia, unspecified; G89.29 - Other chronic pain Status: Acute Assessment and Plan: 05/10/25: * Pt continues to have back pain, but notes it is slightly improved. * No new neurologic deficits. * Continue current pain regimen and bowel regimen as ordered with Oxycodone, Dilaudid for breakthrough, Brace when out of bed, scheduled tylenol, while holding Gabapentin and Baclofen * Pt states the most she does at home is to stand and pivot from bed to wheelchair and believes that she could actually go back to home at discharge. (2) Chronic hyponatremia: Code(s): E87.1 - Hypo-osmolality and hyponatremia Status: Chronic Assessment and Plan: 05/10/25: * Interval improvement today in renal function to 132. * Dr. Samayoa stopped fluid restriction. * Continue salt tabs * Continue to monitor and trend renal function. (3) Diabetes mellitus: Qualifiers: Diabetes mellitus type: type 2 Diabetes mellitus terminal operator insulin use: with terminal operator use Diabetes mellitus complication status: without complication Qualified Code(s): E11.9 - Type 2 diabetes mellitus without complications; Z79.4 - terminal superintendent (current) use of insulin Code(s): E11.9 - Type 2 diabetes mellitus without complications Status: Chronic Assessment and Plan: 05/10/25: * Continue Current regimen. AM glucose was 118, good control achieved with current regimen. (4) Chronic kidney disease, stage 3: Qualifiers: Chronic kidney disease stage 3 subtype: stage 3b (GFR 30-44) Qualified Code(s): N18.32 - Chronic kidney disease, stage 3b Code(s): N18.30 - Chronic kidney disease, stage 3 unspecified Status: Chronic Assessment and Plan: baseline creatinine: 1.5-2.0. Has been over 2 previously. - creatinine 1.15, BUN 24, GFR 24 upon initial evaluation. Up to 1.5, holding diuretics temporarily --Had normal kidneys on US earlier this year, UA negative - trend renal function - trend electrolytes, correct as needed --Having urinary retention, straight cathed, now Samuel placed. Void trial prior to discharge 05/10/25: * Samuel still in place. Attempt voiding trial tomorrow. * Creatinine within baseline at 1.2. * Continue to hold diuretics as the pt appears to be euvolemic. (5) Chronic anemia: Code(s): D64.9 - Anemia, unspecified Status: Chronic Assessment and Plan: 05/10/25: * Hgb today is 12.3. * No concern of acute on chronic anemia. (6) Alcoholism: Code(s): F10.20 - Alcohol dependence, uncomplicated Status: Chronic Assessment and Plan: 05/10/25: * long-term user of ETOH. * Continue CIWA (7) Pulmonary nodule: Code(s): R91.1 - Solitary pulmonary nodule Status: Acute Assessment and Plan: 05/10/25: * Due to multiple increasing nodules, pt has a scheduled bx for Monday. (8) Double vision: Code(s): H53.2 - Diplopia Status: Resolved Assessment and Plan: Binocular, also associated with tremors. Both symptoms resolved completely on exam 05/08 S/P Thiamine 500mg IV q8h x3. Also treated possible alcohol withdrawal, ativan 0.25 x1, scheduled librium 10 TID 05/08 --Head CT no acute findings. MRI brain unable to be completed due to low back pain 05/10/25: * Resolved. (9) Vomiting: Code(s): R11.10 - Vomiting, unspecified Status: Resolved Assessment and Plan: Zofran prn 05/10/25: * Resolved Plan Diet: Diabetic GI Prophylaxis: N/a DVT Prophylaxis: SCDs IV fluids: None Lines/Tubes: Peripheral IV Code Status: Full code Time Spent With Patient Time with patient: 15 - 25 minutes Subjective Date/time seen: 05/10/25 13:01 Interval history: This 70 year old female pt was examined at the bedside and reports that she is starting to feel better, but does still have some weakness and she is concerned about the sore on her coccyx because the nurse overnight suggested that there may be an abscess or boil at the edge of her mepilex dressing that needs to be drained. She has had interval improvement in her Sodium to [address] Samayoa from Nephrology is following along and he is agreeable to lessening the fluid restriction or lifting it all together and trialing her to see how her sodium responds in the AM. Otherwise she has no new concerns or complaints today, other than she wants to go home at discharge. She is scheduled for a lung Bx on Monday. Review of Systems Review of Systems: All systems reviewed & are unremarkable except as noted in HPI and below Exam Narrative: . General - Awake and alert. No acute distress. Chronically ill appearing Eyes - PERRLA, EOM intact ENT - Patent oropharynx without any edema, erythema, or exudate present. Neck - FROM and Supple without any LN. Lymph Nodes - No lymphadenopathy Cardiovascular - RRR no m/r/g/h, no JVD or displacement of PMI. Lungs: Clear to auscultation, No wheezing, use of accessory muscles, no crackles Skin - Skin warm and dry, no rashes. pressure ulcer to right heel and left buttock. Small hardened area at the 10 O'Clock location of the Mepilex dressing. No induration, pointing or erythema. No drainage. Abdomen - BS present in all four quads, NT to Palp Extremities - No edema, cyanosis or clubbing. woody/erythema to BLE Musculoskeletal - 5/5 strength, normal range of motion, no swollen or erythematous joints. Neurological ? Alert and oriented x 3, Tremors to both hands when arms completely resolved, otherwise no focal deficits. Psych: Normal mood and affect Objective Data Vital Signs Vital Signs: Vital Signs - 24 hr 05/09/25 14:00 05/09/25 20:00 05/09/25 22:00 Temperature 97.1 F L 98.2 F Pulse Rate 100 98 98 Respiratory Rate 18 16 16 Blood Pressure 118/54 L 95/48 L Pulse Oximetry 100 100 100 Oxygen Delivery Room Air Fraction of Inspired Oxygen 21 05/09/25 22:17 05/10/25 05:49 05/10/25 08:00 Temperature 98.1 F Pulse Rate 95 95 Respiratory Rate 16 16 Blood Pressure 104/56 L Pulse Oximetry 100 100 100 Oxygen Delivery Room Air Room Air Fraction of Inspired Oxygen 21 Intake/Output Intake/Output: Intake & Output 05/07/25 05/08/25 05/09/25 05/10/25 23:59 23:59 23:59 23:59 Intake Total 1956 1372 1002 540 Output Total 1350 1650 2250 1400 Balance 607 -278 -1248 -860 Meds/Results Medications: Active Medications Generic Name Dose Route Start Last Admin Trade Name Freq PRN Reason Stop Dose Admin Acetaminophen 1,000 mg 05/05/25 17:00 05/10/25 12:54 Acetaminophen 500 Mg Tablet PO 1,000 mg TID NEIL Administration Ascorbic Acid 500 mg 05/05/25 09:00 05/10/25 09:20 Ascorbic Acid 500 Mg Tablet PO 500 mg DAILY NEIL Administration Atorvastatin Calcium 10 mg 05/05/25 09:00 05/10/25 09:20 Atorvastatin 10 Mg Tablet PO 10 mg QAM NEIL Administration Bumetanide 1 mg 05/04/25 17:00 05/06/25 08:22 Bumetanide 1 Mg Tablet PO 1 mg BID NEIL Administration Chlordiazepoxide HCl 25 mg 05/06/25 11:05 05/06/25 17:18 Chlordiazepoxide (*Crx) 25 Mg Capsule PO 25 mg Q6H PRN Administration Withdrawal Dextrose 12.5 gm 05/04/25 16:57 Dextrose 50% 25 Gm/50 Ml Syringe IV PUSH PRN PRN Hypoglycemia Protocol Empagliflozin 10 mg 05/05/25 09:00 05/10/25 09:20 Empagliflozin 10 Mg Tablet PO 10 mg DAILY NEIL Administration Ferrous Sulfate 325 mg 05/05/25 09:00 05/10/25 09:20 Ferrous Sulfate [address] PO 325 mg DAILY NEIL Administration Fluticasone Propionate 1 spray 05/04/25 16:59 Fluticasone Propionate 0.05% Na Spr 16 Gm Btl (*Bkc) NASAL DAILY PRN allergies Folic Acid 0.8 mg 05/05/25 09:00 05/10/25 09:20 Folic Acid 0.4 Mg Tablet PO 0.8 mg DAILY NEIL Administration Gabapentin 300 mg 05/05/25 21:00 05/05/25 21:28 Gabapentin 300 Mg Capsule PO 300 mg HS NEIL Administration Glucagon 1 mg 05/04/25 16:57 Glucagon For Inj 1 Mg Vial IM PRN PRN Hypoglycemia Protocol Glucose 15 gm 05/04/25 16:57 Glucose Oral Gel 15 Gm Of Glucse In 37.5 Gm Tube PO PRN PRN Hypoglycemia Protocol Hydromorphone HCl 0.5 mg 05/05/25 13:45 05/06/25 22:15 Hydromorphone Hcl Inj (*Crx) 2 Mg/Ml Vial IV PUSH 0.5 mg Q3H PRN Administration Breakthrough Pain Insulin Aspart 4 - 8 units 05/04/25 17:00 05/10/25 12:32 Insulin Aspart (*Bkc) 100 Units/Ml SUB-Q Not Given [facility] Protocol Insulin Aspart 3 units 05/04/25 17:20 05/10/25 12:54 Insulin Aspart (*Bkc) 100 Units/Ml SUB-Q 3 units ACINSULIN NEIL Administration Insulin Glargine 10 units 05/08/25 21:00 05/09/25 20:44 Insulin Glargine (*Bkc) 100 Units/Ml SUB-Q 10 units HS NEIL Administration Lidocaine 1 patch 05/05/25 09:00 05/10/25 09:19 Lidocaine 5% Patch TOPICAL Not Given DAILY NEIL Methocarbamol 750 mg 05/04/25 17:00 05/06/25 17:12 Methocarbamol 750 Mg Tablet PO 750 mg TID NEIL Administration Multi-Ingred Cream/Lotion/Oil/Oint 1 applic 05/04/25 17:23 Eucerin Cream 454 Gm Jar TOPICAL PRN PRN DRESSING CHANGES Multi-Ingred Cream/Lotion/Oil/Oint 1 applic 05/05/25 09:00 05/10/25 09:20 Eucerin Cream 454 Gm Jar TOPICAL 1 applic DAILY NEIL Administration Multivitamins/Calcium 1 tablet 05/05/25 09:00 05/10/25 09:20 Therapeutic Multivitamins/Minerals Tab (*Bkc) PO 1 tablet DAILY NEIL Administration Ondansetron HCl 4 mg 05/06/25 09:43 05/06/25 17:22 Ondansetron Inj 4 Mg/2 Ml Vial IV PUSH 4 mg Q4H PRN Administration Nausea And Vomiting Oxycodone HCl 2.5 mg 05/05/25 13:45 05/08/25 11:19 Oxycodone Hcl (*Crx) 2.5 Mg Tab Ir PO 2.5 mg Q4H PRN Administration Severe Pain Oxycodone HCl 5 mg 05/05/25 13:53 05/10/25 06:39 Oxycodone Hcl (*Crx) 5 Mg Tab Ir PO 5 mg Q4H PRN Administration Severe Pain Polyethylene Glycol 17 gm 05/07/25 09:00 05/10/25 12:53 Polyethylene Glycol 3350 17 Gm Powd.Pack PO Not Given TID NEIL Potassium Chloride 10 meq 05/05/25 09:00 05/10/25 09:20 Potassium Chloride 10 Meq Er Tablet PO 10 meq DAILY NEIL Administration Senna/Docusate Sodium 1 tab 05/05/25 21:00 05/09/25 20:40 Senna/Docusate Sodium Tablet PO 1 tab HS NEIL Administration Sodium Chloride 1 gm 05/06/25 09:00 05/10/25 09:20 Sodium Chloride 1 Gm Tablet PO 1 gm BID NEIL Administration Thiamine HCl 100 mg 05/05/25 09:00 05/10/25 09:20 Thiamine Hcl 100 Mg Tablet PO 100 mg QAM NEIL Administration Radiology Results: ITS Impressions Thoracic/Lumbar Spine CT 05/04/25 14:04 IMPRESSION: Small right pleural effusion. Acute/subacute mild compression fractures at T9, T10, and T12. 5 mm groundglass and 15 mm mixed groundglass/solid right upper lobe pulmonary nodules that have increased in size slightly since the October comparison CT. Recommend biopsy or PET/CT. No acute fracture or traumatic malalignment detected in the lumbar spine. Abdomen X-Ray 05/06/25 19:50 IMPRESSION: Suggestion of gastric fold thickening as can be seen with gastritis or varices. Suggestion of small bowel wall thickening, may reflect enteritis. Head CT 05/06/25 19:54 Impression: No acute intracranial hemorrhage or suspicious mass effect. Abdomen/Pelvis CT 05/06/25 20:40 IMPRESSION: Small volume pericardial fluid versus pericardial thickening. Small right pleural effusion with adjacent atelectasis. Infection not excluded. Moderate gastric distention with prominent folds and may represent gastric varices. Cirrhosis with portal hypertension. Mild gastric distention with prominent gastric folds that may represent gastric varices. Proximal small bowel wall thickening as can be seen with enteritis. Segmental wall thickening in the transverse and sigmoid colon, as can be seen w ith infectious, inflammatory, or ischemic colitis. Possible mild fecal impaction and constipation. Distended urinary bladder, correlate for urinary retention. Progressive mild-moderate multilevel compression fractures in the thoracic and lumbar spine. Brain MRI 05/07/25 13:49 IMPRESSION: 1. Severely limited study which was terminated prematurely at patient request due to back pain following only the sagittal T1-weighted imaging. Unable to assess for either acute infarction or T2-weighted signal changes and significantly decrease sensitivity for intracranial hemorrhage which was not observed. 2. Mild age-appropriate diffuse volume loss. Ankle Brachial Index 05/09/25 09:11 IMPRESSION: 1. Diminished bilateral toe brachial indices consistent with peripheral arterial disease. Labs Labs: Laboratory Results - last 24 hr 05/09/25 05/09/25 05/10/25 16:44 19:52 06:24 WBC 7.6 RBC 3.53 L Hgb 11.6 L Hct 36.3 L MCV 102.8 H MCH 32.9 MCHC 32.0 RDW 15.0 H Plt Count 207 MPV 10.5 H Immature Gran % (Auto) 0.7 H Neut % (Auto) 74.3 H Lymph % (Auto) 9.0 L [place] % (Auto) 9.1 H Eos % (Auto) 6.2 H Baso % (Auto) 0.7 Lymph # (Auto) 0.68 L [place] # (Auto) 0.7 H Eos # (Auto) 0.5 H Baso # (Auto) 0.1 Abs Immat Gran (auto) 0.05 H Absolute Neuts (auto) 5.6 Absolute Nucleated RBC 0.000 Nucleated RBC % 0.0 Sodium 132 L Potassium 3.3 L Chloride 99 Carbon Dioxide 23 Anion Gap 10 BUN 38 H Creatinine 1.22 H Estim Creat Clear Calc 34 Estimated GFR 43 L Glucose 118 H POC Capillary Glucose 163 H 223 H Calcium 9.1 05/10/25 05/10/25 08:05 11:50 WBC RBC Hgb Hct MCV MCH MCHC RDW Plt Count MPV Immature Gran % (Auto) Neut % (Auto) Lymph % (Auto) [place] % (Auto) Eos % (Auto) Baso % (Auto) Lymph # (Auto) [place] # (Auto) Eos # (Auto) Baso # (Auto) Abs Immat Gran (auto) Absolute Neuts (auto) Absolute Nucleated RBC Nucleated RBC % Sodium Potassium Chloride Carbon Dioxide Anion Gap BUN Creatinine Estim Creat Clear Calc Estimated GFR Glucose POC Capillary Glucose 115 H 168 H Calcium Quality VTE Prophylaxis VTE prophylaxis: mechanical ordered
[2025-05-10 14:00] VITALS: BP 98/56; PULSE 102; RESP 18; TEMP 36.2; O2SAT 100
[2025-05-10 17:00] VITALS: BP 98/56
[2025-05-10 20:00] VITALS: PULSE 100; RESP 16; O2SAT 99
[2025-05-10] MEDS: SENNA/DOCUSATE SODIUM TABLET 1 TAB PO (20:43)
[2025-05-10] MEDS: INSULIN GLARGINE (*BKC) 100 UNITS/ML 10 UNITS SUB-Q (20:45)
[2025-05-10 22:00] VITALS: BP 87/43; PULSE 100; RESP 16; TEMP 36.9; O2SAT 99
[2025-05-11 05:49] VITALS: BP 112/59; PULSE 100; RESP 16; TEMP 36.9; O2SAT 98
[2025-05-11 06:34] LABS: INR 1.2; Prothrombin Time 15.3 Seconds (11.1-14.7)
[2025-05-11 06:43] LABS: Anion Gap 10 mmol/L (4-12); Blood Urea Nitrogen 41 mg/dL (7-17); Calcium 9.0 mg/dL (8.4-10.2); Carbon Dioxide 23 mmol/L (22-30); Chloride 98 mmol/L (98-107); Estimated CRCL calculation 32 ml/min; Estimated Glomerular Filt Rate 41; Glucose 110 mg/dL (65-110); Potassium 3.4 mmol/L (3.4-5.0); Sodium 131 mmol/L (137-145)
--- NOTE | 2025-05-11 07:41 | PM.IMPN ---
Progress Note: A&P Assessment and Plan (1) Acute on chronic back pain: Code(s): M54.9 - Dorsalgia, unspecified; G89.29 - Other chronic pain Status: Acute Assessment and Plan: CT thoracic/lumbar, 05/04: Small right pleural effusion. Acute/subacute mild compression fractures at T9, T10, and T12. 5 mm groundglass and 15 mm mixed groundglass/solid right upper lobe pulmonary nodules that have increased in size slightly since the October comparison CT. Recommend biopsy or PET/CT. No acute fracture or traumatic malalignment detected in the lumbar spine. --Uses a wheelchair at baseline. no precipitating trauma. unable to care for herself independently in current state prompting attempt for placement from the ED to acute rehab, unsuccessful. admitted for pain control, PT/OT and placement. - Stopped tramadol, started oxycodone 5-7.5mg, dilaudid prn - consulted neuro surgery, placed a brace --stopped methocarbamol, Decreased Baclofen from 10 BID to 5 TID, now on hold --Scheduled tylenol>650 TID, holding gabapentin 300mg hs --Bowel regimen with opiates --Pain from wound now worse, having sharp pains that started 05/09pm and new tunneling to wound with drainage. Imaging right heel and sacrum. (2) Infected wound: Code(s): T14.8XXA - Other injury of unspecified body region, initial encounter; L08.9 - Local infection of the skin and subcutaneous tissue, unspecified Status: Acute Assessment and Plan: Sacral and right heel wound now draining yellow/brown purulent drainage SONIA notable for PAD. --Sent cultures 05/11 from sacrum and right heel--follow results --Start empiric Ceftriaxone, flagyl, and Doxy BID --Surgery consult, may need debridement --X-ray right heel, sacrum. May need an MRI. Has had a CT pelvis and didn't show deep infection --Wound care following, continue to monitor --Needs follow up with vascular surgery (3) Pulmonary nodule: Code(s): R91.1 - Solitary pulmonary nodule Status: Acute Assessment and Plan: Multiple pulmonary nodules on CT, increased in size --Discussed biopsy with radiologist and recommended biopsy over PET scan --No AC prior to procedure. 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: with watermelon harvesting supervisor use Diabetes mellitus type: type 2 Qualified Code(s): E11.9 - Type 2 diabetes mellitus without complications; Z79.4 - prison (current) use of insulin Code(s): E11.9 - Type 2 diabetes mellitus without complications Status: Chronic Assessment and Plan: - hypoglycemia protocol - POC blood glucose ACHS - home medication: Jardiance, Lantus 15u SQ, Lispro 3u TID - correct regimen ordered - high dose TIDWM - A1C 4.6% on 03/25/2025 (6) Chronic kidney disease, stage 3: Qualifiers: Chronic kidney disease stage 3 subtype: stage 3b (GFR 30-44) Qualified Code(s): N18.32 - Chronic kidney disease, stage 3b Code(s): N18.30 - Chronic kidney disease, stage 3 unspecified Status: Chronic Assessment and Plan: baseline creatinine: 1.5-2.0. Has been over 2 previously. - creatinine 1.15, BUN 24, GFR 24 upon initial evaluation. Up to 1.5, holding diuretics temporarily --Had normal kidneys on US earlier this year, UA negative - trend renal function - trend electrolytes, correct as needed --Having urinary retention, straight cathed, now Samuel placed. Void trial prior to discharge. Also for wound care (7) Chronic anemia: Code(s): D64.9 - Anemia, unspecified Status: Chronic Assessment and Plan: - Hgb 11.8, previously 8.0 on 02/07 - secondary to chronic disease - transfuse if <7 - monitor (8) Alcoholism: Code(s): F10.20 - Alcohol dependence, uncomplicated Status: Chronic Assessment and Plan: History of alcohol abuse, still has occasional use. Reports she does not withdrawal when she drinks. Monitor. Drinks 3 1-2 inch glasses of vodka with soda a day --CIWA, s/p 1 dose of ativan and slept, but still symptomatic with tremors --scheduled librium 10mg TID x1 day, prn, now stop (9) Double vision: Code(s): H53.2 - Diplopia Status: Resolved Assessment and Plan: RESOLVED Binocular, also associated with tremors. Both symptoms resolved completely on exam 05/08 S/P Thiamine 500mg IV q8h x3. Also treated possible alcohol withdrawal, ativan 0.25 x1, scheduled librium 10 TID 05/08 --Head CT no acute findings. MRI brain unable to be completed due to low back pain (10) Vomiting: Code(s): R11.10 - Vomiting, unspecified Status: Resolved Assessment and Plan: Zofran prn Plan Diet: Diabetic GI Prophylaxis: N/a DVT Prophylaxis: SCDs IV fluids: None Lines/Tubes: Peripheral IV Code Status: Full code Time Spent With Patient Time: 54 minutes Subjective Date/time seen: 05/11/25 07:41 Interval history: Wounds now draining, purulent. Right heel and sacrum. Sent culture from an infected pocket of purulent drainage. Getting x-rays of right heel and sacrum. Surgery consult Difficulty sitting due to pain, but wants to get out of bed SONIA showed peripheral arterial disease--vascular referral for discharge Review of Systems Review of Systems: All systems reviewed & are unremarkable except as noted in HPI and below Exam Narrative: . General - Awake and alert. No acute distress. Chronically ill appearing Eyes - PERRLA, EOM intact ENT - No thrush, No erythema Neck - No noticeable or palpable swelling Lymph Nodes - No lymphadenopathy Cardiovascular - RRR no m/r/g, no JVD Lungs: Clear to auscultation, No wheezing, use of accessory muscles, no crackles Skin - Skin warm and dry,, no rashes. pressure ulcer to right heel and left buttock Abdomen - Normal bowel sounds, abdomen soft and mildly tender low abdomen, less distended Extremities - No edema, cyanosis or clubbing. woody/erythema to BLE Musculoskeletal - 5/5 strength, normal range of motion, no swollen or erythematous joints. Neurological ? Alert and oriented x 3, No tremors Psych: Normal mood and affect Objective Data Vital Signs Vital Signs: Vital Signs - 24 hr 05/10/25 08:00 05/10/25 14:00 05/10/25 17:00 Temperature 97.1 F L Pulse Rate 95 102 H Respiratory Rate 16 18 Blood Pressure 98/56 L 98/56 L Pulse Oximetry 100 100 Oxygen Delivery Room Air Fraction of Inspired Oxygen 21 05/10/25 20:00 05/10/25 22:00 05/11/25 05:49 Temperature 98.4 F 98.4 F Pulse Rate 100 100 100 Respiratory Rate 16 16 16 Blood Pressure 87/43 L 112/59 L Pulse Oximetry 99 99 98 Oxygen Delivery Room Air Fraction of Inspired Oxygen 21 Intake/Output Intake/Output: Intake & Output 05/08/25 05/09/25 05/10/25 05/11/25 23:59 23:59 23:59 23:59 Intake Total 1372 1002 1020 450 Output Total 1650 2250 2300 1100 Balance -278 -1248 -1280 -650 Meds/Results Medications: Active Medications Generic Name Dose Route Start Last Admin Trade Name Freq PRN Reason Stop Dose Admin Acetaminophen 1,000 mg 05/05/25 17:00 05/10/25 18:19 Acetaminophen 500 Mg Tablet PO 1,000 mg TID NEIL Administration Ascorbic Acid 500 mg 05/05/25 09:00 05/10/25 09:20 Ascorbic Acid 500 Mg Tablet PO 500 mg DAILY NEIL Administration Atorvastatin Calcium 10 mg 05/05/25 09:00 05/10/25 09:20 Atorvastatin 10 Mg Tablet PO 10 mg QAM NEIL Administration Bumetanide 1 mg 05/04/25 17:00 05/06/25 08:22 Bumetanide 1 Mg Tablet PO 1 mg BID NEIL Administration Chlordiazepoxide HCl 25 mg 05/06/25 11:05 05/06/25 17:18 Chlordiazepoxide (*Crx) 25 Mg Capsule PO 25 mg Q6H PRN Administration Withdrawal Dextrose 12.5 gm 05/04/25 16:57 Dextrose 50% 25 Gm/50 Ml Syringe IV PUSH PRN PRN Hypoglycemia Protocol Empagliflozin 10 mg 05/05/25 09:00 05/10/25 09:20 Empagliflozin 10 Mg Tablet PO 10 mg DAILY NEIL Administration Ferrous Sulfate 325 mg 05/05/25 09:00 05/10/25 09:20 Ferrous Sulfate [address] PO 325 mg DAILY NEIL Administration Fluticasone Propionate 1 spray 05/04/25 16:59 Fluticasone Propionate 0.05% Na Spr 16 Gm Btl (*Bkc) NASAL DAILY PRN allergies Folic Acid 0.8 mg 05/05/25 09:00 05/10/25 09:20 Folic Acid 0.4 Mg Tablet PO 0.8 mg DAILY NEIL Administration Gabapentin 300 mg 05/05/25 21:00 05/05/25 21:28 Gabapentin 300 Mg Capsule PO 300 mg HS NEIL Administration Glucagon 1 mg 05/04/25 16:57 Glucagon For Inj 1 Mg Vial IM PRN PRN Hypoglycemia Protocol Glucose 15 gm 05/04/25 16:57 Glucose Oral Gel 15 Gm Of Glucse In 37.5 Gm Tube PO PRN PRN Hypoglycemia Protocol Hydromorphone HCl 0.5 mg 05/05/25 13:45 05/06/25 22:15 Hydromorphone Hcl Inj (*Crx) 2 Mg/Ml Vial IV PUSH 0.5 mg Q3H PRN Administration Breakthrough Pain Insulin Aspart 4 - 8 units 05/04/25 17:00 05/10/25 18:00 Insulin Aspart (*Bkc) 100 Units/Ml SUB-Q Not Given TIDWM PENDING SALE TO [facility] Protocol Insulin Aspart 3 units 05/04/25 17:20 05/10/25 18:19 Insulin Aspart (*Bkc) 100 Units/Ml SUB-Q 3 units ACINSULIN NEIL Administration Insulin Glargine 10 units 05/08/25 21:00 05/10/25 20:45 Insulin Glargine (*Bkc) 100 Units/Ml SUB-Q 10 units HS NEIL Administration Lidocaine 1 patch 05/05/25 09:00 05/10/25 09:19 Lidocaine 5% Patch TOPICAL Not Given DAILY NEIL Methocarbamol 750 mg 05/04/25 17:00 05/06/25 17:12 Methocarbamol 750 Mg Tablet PO 750 mg TID NEIL Administration Multi-Ingred Cream/Lotion/Oil/Oint 1 applic 05/04/25 17:23 Eucerin Cream 454 Gm Jar TOPICAL PRN PRN DRESSING CHANGES Multi-Ingred Cream/Lotion/Oil/Oint 1 applic 05/05/25 09:00 05/10/25 09:20 Eucerin Cream 454 Gm Jar TOPICAL 1 applic DAILY NEIL Administration Multivitamins/Calcium 1 tablet 05/05/25 09:00 05/10/25 09:20 Therapeutic Multivitamins/Minerals Tab (*Bkc) PO 1 tablet DAILY NEIL Administration Ondansetron HCl 4 mg 05/06/25 09:43 05/06/25 17:22 Ondansetron Inj 4 Mg/2 Ml Vial IV PUSH 4 mg Q4H PRN Administration Nausea And Vomiting Oxycodone HCl 2.5 mg 05/05/25 13:45 05/08/25 11:19 Oxycodone Hcl (*Crx) 2.5 Mg Tab Ir PO 2.5 mg Q4H PRN Administration Severe Pain Oxycodone HCl 5 mg 05/05/25 13:53 05/10/25 20:43 Oxycodone Hcl (*Crx) 5 Mg Tab Ir PO 5 mg Q4H PRN Administration Severe Pain Polyethylene Glycol 17 gm 05/07/25 09:00 05/10/25 18:19 Polyethylene Glycol 3350 17 Gm Powd.Pack PO Not Given TID NEIL Potassium Chloride 10 meq 05/05/25 09:00 05/10/25 09:20 Potassium Chloride 10 Meq Er Tablet PO 10 meq DAILY NEIL Administration Senna/Docusate Sodium 1 tab 05/05/25 21:00 05/10/25 20:43 Senna/Docusate Sodium Tablet PO 1 tab HS NEIL Administration Sodium Chloride 1 gm 05/06/25 09:00 05/10/25 18:19 Sodium Chloride 1 Gm Tablet PO 1 gm BID NEIL Administration Thiamine HCl 100 mg 05/05/25 09:00 05/10/25 09:20 Thiamine Hcl 100 Mg Tablet PO 100 mg QAM NEIL Administration Radiology Results: ITS Impressions Thoracic/Lumbar Spine CT 05/04/25 14:04 IMPRESSION: Small right pleural effusion. Acute/subacute mild compression fractures at T9, T10, and T12. 5 mm groundglass and 15 mm mixed groundglass/solid right upper lobe pulmonary nodules that have increased in size slightly since the October comparison CT. Recommend biopsy or PET/CT. No acute fracture or traumatic malalignment detected in the lumbar spine. Abdomen X-Ray 05/06/25 19:50 IMPRESSION: Suggestion of gastric fold thickening as can be seen with gastritis or varices. Suggestion of small bowel wall thickening, may reflect enteritis. Head CT 05/06/25 19:54 Impression: No acute intracranial hemorrhage or suspicious mass effect. Abdomen/Pelvis CT 05/06/25 20:40 IMPRESSION: Small volume pericardial fluid versus pericardial thickening. Small right pleural effusion with adjacent atelectasis. Infection not excluded. Moderate gastric distention with prominent folds and may represent gastric varices. Cirrhosis with portal hypertension. Mild gastric distention with prominent gastric folds that may represent gastric varices. Proximal small bowel wall thickening as can be seen with enteritis. Segmental wall thickening in the transverse and sigmoid colon, as can be seen with infectious, inflammatory, or ischemic colitis. Possible mild fecal impaction and constipation. Distended urinary bladder, correlate for urinary retention. Progressive mild-moderate multilevel compression fractures in the thoracic and lumbar spine. Brain MRI 05/07/25 13:49 IMPRESSION: 1. Severely limited study which was terminated prematurely at patient request due to back pain following only the sagittal T1-weighted imaging. Unable to assess for either acute infarction or T2-weighted signal changes and significantly decrease sensitivity for intracranial hemorrhage which was not observed. 2. Mild age-appropriate diffuse volume loss. Ankle Brachial Index 05/09/25 09:11 IMPRESSION: 1. Diminished bilateral toe brachial indices consistent with peripheral arterial disease. Labs Labs: Laboratory Results - last 24 hr 05/10/25 05/10/25 05/10/25 08:05 11:50 16:50 PT INR Sodium Potassium Chloride Carbon Dioxide Anion Gap BUN Creatinine Estim Creat Clear Calc Estimated GFR Glucose POC Capillary Glucose 115 H 168 H 151 H Calcium 05/10/25 05/11/25 19:32 05:36 PT 15.3 H INR 1.2 Sodium 131 L Potassium 3.4 Chloride 98 Carbon Dioxide 23 Anion Gap 10 BUN 41 H Creatinine 1.28 H Estim Creat Clear Calc 32 Estimated GFR 41 L Glucose 110 POC Capillary Glucose 210 H Calcium 9.0 Quality VTE Prophylaxis VTE prophylaxis: mechanical ordered Hospitalist [facility] Advance Care Plan I have confirmed that the patient's Advanced Care Plan is present, code status is documented, or surrogate decision maker is listed in patient medical record.: Yes Medication Reconciliation I have utilized all available resources to obtain, update and review the patients current medications (includes all prescriptions, OTC, herbals, cannabis, and nutritional supplements).: Yes
[2025-05-11] MEDS: ASCORBIC ACID 500 MG TABLET PO (09:10)
[2025-05-11] MEDS: POTASSIUM CHLORIDE 10 MEQ ER TABLET PO (09:10)
[2025-05-11] MEDS: FOLIC ACID 0.4 MG TABLET 0.8 MG PO (09:10)
[2025-05-11] MEDS: ACETAMINOPHEN 500 MG TABLET 1000 MG PO ×3 (09:10→17:02)
[2025-05-11] MEDS: SODIUM CHLORIDE 1 GM TABLET PO ×2 (09:10→17:03)
[2025-05-11] MEDS: THERAPEUTIC MULTIVITAMINS/MINERALS TAB (*BKC) 1 TABLET PO (09:10)
[2025-05-11] MEDS: THIAMINE HCL 100 MG TABLET PO (09:11)
[2025-05-11] MEDS: FERROUS SULFATE 325 MG TABLET DR PO (09:11)
[2025-05-11] MEDS: ATORVASTATIN 10 MG TABLET PO (09:11)
[2025-05-11] MEDS: EMPAGLIFLOZIN 10 MG TABLET PO (09:11)
[2025-05-11] MEDS: EUCERIN CREAM 454 GM JAR 1 APPLIC TOPICAL (09:11)
[2025-05-11] MEDS: INSULIN ASPART (*BKC) 100 UNITS/ML SUB-Q ×3 (09:12→17:39)
[2025-05-11] MEDS: oxyCODONE HCL (*CRX) 5 MG TAB IR PO ×2 (09:15→17:03)
[2025-05-11] MEDS: oxyCODONE HCL (*CRX) 2.5 MG TAB IR PO ×2 (09:17→17:03)
--- NOTE | 2025-05-11 09:29 | P.PNNP_ITS ---
Progress Note: A&P Assessment and Plan (1) Chronic kidney disease, stage 3: Qualifiers: Chronic kidney disease stage 3 subtype: stage 3b (GFR 30-44) Qualified Code(s): N18.32 - Chronic kidney disease, stage 3b Code(s): N18.30 - Chronic kidney disease, stage 3 unspecified Status: Chronic Assessment and Plan: * baseline creatinine runs ~ 1.3 - 1.7mg/dl * this causes her to fluctuate between CKD stage 3A and stage 3B * creatinine has been higher in the due to more aggresive diuresis * presumably related to her CHF, previous HTN (not an issue now), DM, vascular disease, liver disease and need for chronic diuretic therapy * her creatinine is lower than her baseline. Possibly due to bedrest and decreased creatinine production (2) Acute on chronic diastolic (congestive) heart failure: Code(s): I50.33 - Acute on chronic diastolic (congestive) heart failure Status: Acute Assessment and Plan: * Creatinine did rise to 1.6 couple of days ago but since then has fallen to below her baseline (3) Chronic anemia: Code(s): D64.9 - Anemia, unspecified Status: Chronic Assessment and Plan: * likely related to CKD and liver disease * check a CBC in the morning (4) Chronic hyponatremia: Code(s): E87.1 - Hypo-osmolality and hyponatremia Status: Chronic Assessment and Plan: * sodium was stable but then dropped to 124 but this has improved and is now up to 132 over couple of days. * chronically low due to chronic diuretic (for edema/chf), chronic outpatient tramadol, diuretics (coleman metolazone), and it doens't sound like she follows a fluid restriction all that well. (pt asking for more fluids today) * she is treated as an outpt with low dose loop diuretics, salt tabs, and fluid restriction and generally does well. * She is on the bumetanide cut she swells without it. So she is on salt tablets to keep the bumetanide from dropping the sodium and on a fluid restriction to help the sodium. * she is on 1800cc of fluid. Her sodium level is stable. * Patient is asking more for more fluid; however I fear this may make the sodium Drop further so will keep things the same for now. * long discussion with the patient (5) Alcoholic cirrhosis of liver: Qualifiers: Ascites presence: without ascites Qualified Code(s): K70.30 - Alcoholic cirrhosis of liver without ascites Code(s): K70.30 - Alcoholic cirrhosis of liver without ascites Status: Chronic Assessment and Plan: * follows with GI * LFTs normal * continue supportive therapy (6) Diabetes mellitus: Qualifiers: Diabetes mellitus type: type 2 Diabetes mellitus senior living insulin use: with manager terminal use Diabetes mellitus complication status: without complication Qualified Code(s): E11.9 - Type 2 diabetes mellitus without complications; Z79.4 - prison (current) use of insulin Code(s): E11.9 - Type 2 diabetes mellitus without complications Status: Chronic Assessment and Plan: Management per hospitalists. (7) CATHRYN (acute kidney injury): Code(s): N17.9 - Acute kidney failure, unspecified Status: Acute Assessment and Plan: * baseline creatinine runs around 1.5 to 2 * Her GFR seems to his improved a little bit while here; perhaps due to bedrest in lower creatinine production Plan lung biopsy planned for tomorrow Subjective Date/time seen: 05/11/25 09:29 Interval history: patient is alert. Feels okay. Asking for more fluid Exam Narrative: WDWN in NAD skin no rash or subQ not head ncat lungs clear bilateral cor reg no rub abd BS+ nontender and soft ext 1+ bilateral edema. Objective Data Vital Signs Vital Signs: Vital Signs - 24 hr 05/10/25 14:00 05/10/25 17:00 05/10/25 20:00 Temperature 97.1 F L Pulse Rate 102 H 100 Respiratory Rate 18 16 Blood Pressure 98/56 L 98/56 L Pulse Oximetry 100 99 Oxygen Delivery Room Air Fraction of Inspired Oxygen 21 05/10/25 22:00 05/11/25 05:49 Temperature 98.4 F 98.4 F Pulse Rate 100 100 Respiratory Rate 16 16 Blood Pressure 87/43 L 112/59 L Pulse Oximetry 99 98 Oxygen Delivery Fraction of Inspired Oxygen Intake/Output Intake/Output: Intake & Output 05/08/25 05/09/25 05/10/25 05/11/25 23:59 23:59 23:59 23:59 Intake Total 1372 1002 1020 450 Output Total 1650 2250 2300 1100 Balance -278 -1248 -1280 -650 Meds/Results Medications: Active Medications Generic Name Dose Route Start Last Admin Trade Name Joséq PRN Reason Stop Dose Admin Acetaminophen 1,000 mg 05/05/25 17:00 05/11/25 09:10 Acetaminophen 500 Mg Tablet PO 1,000 mg TID NEIL Administration Ascorbic Acid 500 mg 05/05/25 09:00 05/11/25 09:10 Ascorbic Acid 500 Mg Tablet PO 500 mg DAILY NEIL Administration Atorvastatin Calcium 10 mg 05/05/25 09:00 05/11/25 09:11 Atorvastatin 10 Mg Tablet PO 10 mg QAM NEIL Administration Bumetanide 1 mg 05/04/25 17:00 05/06/25 08:22 Bumetanide 1 Mg Tablet PO 1 mg BID NEIL Administration Chlordiazepoxide HCl 25 mg 05/06/25 11:05 05/06/25 17:18 Chlordiazepoxide (*Crx) 25 Mg Capsule PO 25 mg Q6H PRN Administration Withdrawal Dextrose 12.5 gm 05/04/25 16:57 Dextrose 50% 25 Gm/50 Ml Syringe IV PUSH PRN PRN Hypoglycemia Protocol Empagliflozin 10 mg 05/05/25 09:00 05/11/25 09:11 Empagliflozin 10 Mg Tablet PO 10 mg DAILY NEIL Administration Ferrous Sulfate 325 mg 05/05/25 09:00 05/11/25 09:11 Ferrous Sulfate [address] PO 325 mg DAILY NEIL Administration Fluticasone Propionate 1 spray 05/04/25 16:59 Fluticasone Propionate 0.05% Na Spr 16 Gm Btl (*Bkc) NASAL DAILY PRN allergies Folic Acid 0.8 mg 05/05/25 09:00 05/11/25 09:10 Folic Acid 0.4 Mg Tablet PO 0.8 mg DAILY NEIL Administration Gabapentin 300 mg 05/05/25 21:00 05/05/25 21:28 Gabapentin 300 Mg Capsule PO 300 mg HS NEIL Administration Glucagon 1 mg 05/04/25 16:57 Glucagon For Inj 1 Mg Vial IM PRN PRN Hypoglycemia Protocol Glucose 15 gm 05/04/25 16:57 Glucose Oral Gel 15 Gm Of Glucse In 37.5 Gm Tube PO PRN PRN Hypoglycemia Protocol Hydromorphone HCl 0.5 mg 05/05/25 13:45 05/06/25 22:15 Hydromorphone Hcl Inj (*Crx) 2 Mg/Ml Vial IV PUSH 0.5 mg Q3H PRN Administration Breakthrough Pain Insulin Aspart 4 - 8 units 05/04/25 17:00 05/11/25 09:04 Insulin Aspart (*Bkc) 100 Units/Ml SUB-Q Not Given TIDWM [facility] Protocol Insulin Aspart 3 units 05/04/25 17:20 05/11/25 09:12 Insulin Aspart (*Bkc) 100 Units/Ml SUB-Q 3 units ACINSULIN NEIL Administration Insulin Glargine 10 units 05/08/25 21:00 05/10/25 20:45 Insulin Glargine (*Bkc) 100 Units/Ml SUB-Q 10 units HS NEIL Administration Lidocaine 1 patch 05/05/25 09:00 05/11/25 09:19 Lidocaine 5% Patch TOPICAL Not Given DAILY NEIL Methocarbamol 750 mg 05/04/25 17:00 05/06/25 17:12 Methocarbamol 750 Mg Tablet PO 750 mg TID NEIL Administration Multi-Ingred Cream/Lotion/Oil/Oint 1 applic 05/04/25 17:23 Eucerin Cream 454 Gm Jar TOPICAL PRN PRN DRESSING CHANGES Multi-Ingred Cream/Lotion/Oil/Oint 1 applic 05/05/25 09:00 05/11/25 09:11 Eucerin Cream 454 Gm Jar TOPICAL 1 applic DAILY NEIL Administration Multivitamins/Calcium 1 tablet 05/05/25 09:00 05/11/25 09:10 Therapeutic Multivitamins/Minerals Tab (*Bkc) PO 1 tablet DAILY NEIL Administration Ondansetron HCl 4 mg 05/06/25 09:43 05/06/25 17:22 Ondansetron Inj 4 Mg/2 Ml Vial IV PUSH 4 mg Q4H PRN Administration Nausea And Vomiting Oxycodone HCl 2.5 mg 05/05/25 13:45 05/11/25 09:17 Oxycodone Hcl (*Crx) 2.5 Mg Tab Ir PO 2.5 mg Q4H PRN Administration Severe Pain Oxycodone HCl 5 mg 05/05/25 13:53 05/11/25 09:15 Oxycodone Hcl (*Crx) 5 Mg Tab Ir PO 5 mg Q4H PRN Administration Severe Pain Polyethylene Glycol 17 gm 05/07/25 09:00 05/11/25 09:11 Polyethylene Glycol 3350 17 Gm Powd.Pack PO 17 gm TID NEIL Administration Potassium Chloride 10 meq 05/05/25 09:00 05/11/25 09:10 Potassium Chloride 10 Meq Er Tablet PO 10 meq DAILY NEIL Administration Senna/Docusate Sodium 1 tab 05/05/25 21:00 05/10/25 20:43 Senna/Docusate Sodium Tablet PO 1 tab HS NEIL Administration Sodium Chloride 1 gm 05/06/25 09:00 05/11/25 09:10 Sodium Chloride 1 Gm Tablet PO 1 gm BID NEIL Administration Thiamine HCl 100 mg 05/05/25 09:00 05/11/25 09:11 Thiamine Hcl 100 Mg Tablet PO 100 mg QAM NEIL Administration Radiology Results: ITS Impressions Thoracic/Lumbar Spine CT 05/04/25 14:04 IMPRESSION: Small right pleural effusion. Acute/subacute mild compression fractures at T9, T10, and T12. 5 mm groundglass and 15 mm mixed groundglass/solid right upper lobe pulmonary nodules that have increased in size slightly since the October comparison CT. Recommend biopsy or PET/CT. No acute fracture or traumatic malalignment detected in the lumbar spine. Abdomen X-Ray 05/06/25 19:50 IMPRESSION: Suggestion of gastric fold thickening as can be seen with gastritis or varices. Suggestion of small bowel wall thickening, may reflect enteritis. Head CT 05/06/25 19:54 Impression: No acute intracranial hemorrhage or suspicious mass effect. Abdomen/Pelvis CT 05/06/25 20:40 IMPRESSION: Small volume pericardial fluid versus pericardial thickening. Small right pleural effusion with adjacent atelectasis. Infection not excluded. Moderate gastric distention with prominent folds and may represent gastric varices. Cirrhosis with portal hypertension. Mild gastric distention with prominent gastric folds that may represent gastric varices. Proximal small bowel wall thickening as can be seen with enteritis. Segmental wall thickening in the transverse and sigmoid colon, as can be seen with infectious, inflammatory, or ischemic colitis. Possible mild fecal impaction and constipation. Distended urinary bladder, correlate for urinary retention. Progressive mild-moderate multilevel compression fractures in the thoracic and lumbar spine. Brain MRI 05/07/25 13:49 IMPRESSION: 1. Severely limited study which was terminated prematurely at patient request due to back pain following only the sagittal T1-weighted imaging. Unable to assess for either acute infarction or T2-weighted signal changes and significantly decrease sensitivity for intracranial hemorrhage which was not observed. 2. Mild age-appropriate diffuse volume loss. Ankle Brachial Index 05/09/25 09:11 IMPRESSION: 1. Diminished bilateral toe brachial indices consistent with peripheral arterial disease. Labs Labs: Laboratory Results - last 24 hr 05/10/25 05/10/25 05/10/25 11:50 16:50 19:32 PT INR Sodium Potassium Chloride Carbon Dioxide Anion Gap BUN Creatinine Estim Creat Clear Calc Estimated GFR Glucose POC Capillary Glucose 168 H 151 H 210 H Calcium 05/11/25 05/11/25 05:36 07:54 PT 15.3 H INR 1.2 Sodium 131 L Potassium 3.4 Chloride 98 Carbon Dioxide 23 Anion Gap 10 BUN 41 H Creatinine 1.28 H Estim Creat Clear Calc 32 Estimated GFR 41 L Glucose 110 POC Capillary Glucose 103 Calcium 9.0
[2025-05-11 14:00] VITALS: BP 95/57; PULSE 103; RESP 18; TEMP 36.8; O2SAT 99
[2025-05-11] MEDS: cefTRIAXone 2 GM in SODIUM CHLORIDE 0.9% IV 100 ML 200 ML IVPB (15:07)
[2025-05-11] MEDS: CALCIUM CARBONATE (TUMS) 500 MG (200 MG ELEMENTAL) PO (15:18)
[2025-05-11 15:38] LABS: MRSA (PCR) NOT DETECTED (NOT DETECTE)
[2025-05-11] MEDS: DOXYCYCLINE HYCLATE 100 MG TABLET PO (20:09)
[2025-05-11] MEDS: SENNA/DOCUSATE SODIUM TABLET 1 TAB PO (20:09)
[2025-05-11] MEDS: INSULIN GLARGINE (*BKC) 100 UNITS/ML 10 UNITS SUB-Q (20:13)
[2025-05-11 21:47] VITALS: BP 117/63; PULSE 98; RESP 20; TEMP 36.6; O2SAT 100
[2025-05-12] VITALS (12 sets, daily range): BP systolic 98–121; BP diastolic 45–56; PULSE 97–100; RESP 12–20; TEMP 36.2–37.2; O2SAT 96–100
[2025-05-12] MEDS: oxyCODONE HCL (*CRX) 5 MG TAB IR PO ×3 (00:57→16:50)
[2025-05-12 06:04] LABS: Hematocrit 33.0 % (37.0-47.0); Hemoglobin 10.7 g/dL (12.0-15.0); Mean Corpuscular HGB Conc 32.4 g/dl (32-36); Mean Corpuscular Hemoglobin 32.5 pg (26-34); Mean Corpuscular Volume 100.3 fl (80-100); Platelet Count Result 224 k/mm3 (150-375); Red Blood Count 3.29 M/mm3 (4.2-5.4); White Blood Count 6.7 K/mm3 (4.5-10.0)
[2025-05-12 06:31] LABS: Albumin Level 3.0 g/dL (3.5-5.1); Anion Gap 9 mmol/L (4-12); Blood Urea Nitrogen 33 mg/dL (7-17); CRP 5.4 mg/dL (<1.0); Calcium 9.2 mg/dL (8.4-10.2); Carbon Dioxide 24 mmol/L (22-30); Chloride 101 mmol/L (98-107); Estimated CRCL calculation 37 ml/min; Estimated Glomerular Filt Rate 48; Glucose 114 mg/dL (65-110); Potassium 3.2 mmol/L (3.4-5.0); Sodium 134 mmol/L (137-145)
--- NOTE | 2025-05-12 07:17 | P.PNIM_ITS ---
Progress Note: A&P Assessment and Plan (1) Infected wound: Code(s): T14.8XXA - Other injury of unspecified body region, initial encounter; L08.9 - Local infection of the skin and subcutaneous tissue, unspecified Status: Acute Assessment and Plan: -Sacral wound now draining yellow/brown purulent drainage -Also with R heel wound, appears clean and dry today. SONIA notable for PAD. - WBC 10.7, ESR 101 -Sent cultures 05/11 from sacrum and right heel--follow results - continue empiric Ceftriaxone, flagyl, and Doxy BID - Surgery consult, planning for OR today for I&D and debridement of sacrum - XR sacrum and R heel with no obvious signs of osteomyelitis -Wound care following, continue to monitor -Needs follow up with vascular surgery (2) Acute on chronic back pain: Code(s): M54.9 - Dorsalgia, unspecified; G89.29 - Other chronic pain Status: Acute Assessment and Plan: -CT thoracic/lumbar, 05/04: Acute/subacute mild compression fractures at T9, T10, and T12. No acute fracture or traumatic malalignment detected in the lumbar spine. -Uses a wheelchair at baseline. no precipitating trauma. unable to care for herself independently in current state prompting attempt for placement from the ED to acute rehab, unsuccessful. admitted for pain control, PT/OT and placement. - Stopped tramadol, started oxycodone 5-7.5mg, Dilaudid prn - consulted neuro surgery, placed a brace and recommended outpatient follow-up 6 weeks. Avoid bending/twisting and no heavy lifting. -Scheduled tylenol>650 TID, holding gabapentin 300mg hs -Bowel regimen with opiates (3) Pulmonary nodule: Code(s): R91.1 - Solitary pulmonary nodule Status: Acute Assessment and Plan: - CT showed 5 mm groundglass and 15 mm mixed groundglass/solid right upper lobe pulmonary nodules that have increased in size slightly since the October comparison CT. Recommend biopsy or PET/CT. -Discussed biopsy with radiologist and recommended biopsy over PET scan. Will plan to pursue as outpatient due to patient going to OR for sacral wound. (4) Chronic hyponatremia: Code(s): E87.1 - Hypo-osmolality and hyponatremia Status: Chronic Assessment and Plan: - chronic. 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 Has been over 2 previously. - creatinine 1.15, BUN 24, GFR 24 upon initial evaluation. Up to 1.5, diuretics held temporarily and Cr improved -Had normal kidneys on US earlier this year, UA negative - trend renal function - trend electrolytes, correct as needed (7) Chronic anemia: Code(s): D64.9 - Anemia, unspecified Status: Chronic Assessment and Plan: - admit Hgb 11.8, previously 8.0 on 02/07 - secondary to chronic disease - transfuse if <7 - monitor (8) Alcoholism: Code(s): F10.20 - Alcohol dependence, uncomplicated Status: Chronic Assessment and Plan: -History of alcohol abuse, still has occasional use. - had signs of mild withdrawal s/p librium tap (9) Double vision: Code(s): H53.2 - Diplopia Status: Resolved Assessment and Plan: -RESOLVED -Binocular, also associated with tremors. Both symptoms resolved completely on exam 05/08 S/P Thiamine 500mg IV q8h x3. Also treated possible alcohol withdrawal, ativan 0.25 x1, scheduled librium 10 TID 05/08 -Head CT no acute findings. MRI brain unable to be completed due to low back pain (10) Vomiting: Code(s): R11.10 - Vomiting, unspecified Status: Resolved Assessment and Plan: -Pemaan prn (11) Hypokalemia: Code(s): E87.6 - Hypokalemia Status: Acute Assessment and Plan: - K+ 3.2 - PO replacement ordered (12) Urinary retention: Code(s): R33.9 - Retention of urine, unspecified Status: Acute Assessment and Plan: -patient had episode of urinary retention requiring Samuel catheter placement -continue Samuel given sacral wound, voiding trial when able (13) Alcoholic cirrhosis: Code(s): K70.30 - Alcoholic cirrhosis of liver without ascites Status: Acute Assessment and Plan: - CT A/P showed moderate gastric distention which may represent gastric varices, cirrhosis with portal hypertension. Also showed possible colitis. - GI consulted, planning for outpatient Fibroscan. No concern for colitis given lack of abdominal pain or diarrhea. Subjective Date/time seen: 05/12/25 07:17 Interval history: 70 y/o F with PMH of cirrhosis, alcohol abuse, diastolic dysfunction, diabetes, chronic hyponatremia, chronic anemia, and chronic venous insufficiency with lipodermatosclerosis of the bilateral lower extremities. Patient seen and examined at bedside. Pain decently controlled. Discussed plan for surgery, likely today. Review of Systems Review of Systems: All systems reviewed & are unremarkable except as noted in HPI and below Exam Narrative: General: NAD Eyes: EOMI ENT: neck supple Cardiovascular: Regular rate and rhythm Respiratory: Clear to auscultation, respirations even and unlabored on RA Gastrointestinal: Soft, non tender Genitourinary: no suprapubic tenderness Musculoskeletal: Small right heel wound with clean base without purulent drainage, left buttock with tracking wound with purulence drainage and mild surrounding induration. Chronic venous stasis skin changes. Skin: warm, dry Neuro: Alert. Psych: Mood appropriate Objective Data Vital Signs Vital Signs: Vital Signs - 24 hr 05/11/25 08:00 05/11/25 14:00 05/11/25 21:47 Temperature 98.3 F 97.9 F Pulse Rate 103 H 98 Respiratory Rate 18 20 Blood Pressure 95/57 L 117/63 Pulse Oximetry 99 100 Oxygen Delivery Room Air 05/12/25 06:00 Temperature 97.8 F Pulse Rate 97 Respiratory Rate 20 Blood Pressure 105/56 L Pulse Oximetry 100 Oxygen Delivery Intake/Output Intake/Output: Intake & Output 05/09/25 05/10/25 05/11/25 07/28/25 23:59 23:59 23:59 23:59 Intake Total 1002 1020 1170 Output Total 4350 3390 1351 850 [id number] [phone] Meds/Results Medications: Active Medications Generic Name Dose Route Start Last Admin Trade Name Freq PRN Reason Stop Dose Admin Acetaminophen 1,000 mg 05/05/25 17:00 05/11/25 17:02 Acetaminophen 500 Mg Tablet PO 1,000 mg TID NEIL Administration Ascorbic Acid 500 mg 05/05/25 09:00 05/11/25 09:10 Ascorbic Acid 500 Mg Tablet PO 500 mg DAILY NEIL Administration Atorvastatin Calcium 10 mg 05/05/25 09:00 05/11/25 09:11 Atorvastatin 10 Mg Tablet PO 10 mg QAM NEIL Administration Bumetanide 1 mg 05/04/25 17:00 05/06/25 08:22 Bumetanide 1 Mg Tablet PO 1 mg BID NEIL Administration Calcium Carbonate 200 mg 05/11/25 15:11 05/11/25 15:18 Calcium Carbonate (Tums) 500 Mg (200 Mg Elemental) PO 200 mg Q6H PRN Administration Indigestion Dextrose 12.5 gm 05/04/25 16:57 Dextrose 50% 25 Gm/50 Ml Syringe IV PUSH PRN PRN Hypoglycemia Protocol Doxycycline Hyclate 100 mg 05/11/25 21:00 05/11/25 20:09 Doxycycline Hyclate 100 Mg Tablet PO 100 mg Q12HR NEIL Administration Empagliflozin 10 mg 05/05/25 09:00 05/11/25 09:11 Empagliflozin 10 Mg Tablet PO 10 mg DAILY NEIL Administration Ferrous Sulfate 325 mg 05/05/25 09:00 05/11/25 09:11 Ferrous Sulfate [address] PO 325 mg DAILY NEIL Administration Fluticasone Propionate 1 spray 05/04/25 16:59 Fluticasone Propionate 0.05% Na Spr 16 Gm Btl (*Bkc) NASAL DAILY PRN allergies Folic Acid 0.8 mg 05/05/25 09:00 05/11/25 09:10 Folic Acid 0.4 Mg Tablet PO 0.8 mg DAILY NEIL Administration Gabapentin 300 mg 05/05/25 21:00 05/05/25 21:28 Gabapentin 300 Mg Capsule PO 300 mg HS NEIL Administration Glucagon 1 mg 05/04/25 16:57 Glucagon For Inj 1 Mg Vial IM PRN PRN Hypoglycemia Protocol Glucose 15 gm 05/04/25 16:57 Glucose Oral Gel 15 Gm Of Glucse In 37.5 Gm Tube PO PRN PRN Hypoglycemia Protocol Heparin Sodium (Porcine) 5,000 units 05/13/25 21:00 Heparin Sodium 5,000 Units/Ml Vial SUB-Q Q12HR NEIL Hydromorphone HCl 0.5 mg 05/05/25 13:45 05/06/25 22:15 Hydromorphone Hcl Inj (*Crx) 2 Mg/Ml Vial IV PUSH 0.5 mg Q3H PRN Administration Breakthrough Pain Ceftriaxone Sodium 2 gm/ 100 mls @ 200 mls/hr 05/11/25 14:00 05/11/25 15:07 Sodium Chloride IVPB 200 mls/hr Q24H NEIL Administration Insulin Aspart 4 - 8 units 05/04/25 17:00 05/11/25 17:03 Insulin Aspart (*Bkc) 100 Units/Ml SUB-Q Not Given TIDWM NEIL Protocol Insulin Aspart 3 units 05/04/25 17:20 05/11/25 17:39 Insulin Aspart (*Bkc) 100 Units/Ml SUB-Q 3 units ACINSULIN NEIL Administration Insulin Glargine 10 units 05/08/25 21:00 05/11/25 20:13 Insulin Glargine (*Bkc) 100 Units/Ml SUB-Q 10 units HS NEIL Administration Lidocaine 1 patch 05/05/25 09:00 05/11/25 09:19 Lidocaine 5% Patch TOPICAL Not Given DAILY NEIL Methocarbamol 750 mg 05/04/25 17:00 05/06/25 17:12 Methocarbamol 750 Mg Tablet PO 750 mg TID NEIL Administration Metronidazole 500 mg 05/11/25 14:00 05/12/25 05:59 Metronidazole 500 Mg Tablet PO 500 mg Q8HR NEIL Administration Multi-Ingred Cream/Lotion/Oil/Oint 1 applic 05/04/25 17:23 Eucerin Cream 454 Gm Jar TOPICAL PRN PRN DRESSING CHANGES Multi-Ingred Cream/Lotion/Oil/Oint 1 applic 05/05/25 09:00 05/11/25 09:11 Eucerin Cream 454 Gm Jar TOPICAL 1 applic DAILY NEIL Administration Multivitamins/Calcium 1 tablet 05/05/25 09:00 05/11/25 09:10 Therapeutic Multivitamins/Minerals Tab (*Bkc) PO 1 tablet DAILY NEIL Administration Ondansetron HCl 4 mg 05/06/25 09:43 05/06/25 17:22 Ondansetron Inj 4 Mg/2 Ml Vial IV PUSH 4 mg Q4H PRN Administration Nausea And Vomiting Oxycodone HCl 2.5 mg 05/05/25 13:45 05/11/25 17:03 Oxycodone Hcl (*Crx) 2.5 Mg Tab Ir PO 2.5 mg Q4H PRN Administration Severe Pain Oxycodone HCl 5 mg 05/05/25 13:53 05/12/25 00:57 Oxycodone Hcl (*Crx) 5 Mg Tab Ir PO 5 mg Q4H PRN Administration Severe Pain Polyethylene Glycol 17 gm 05/13/25 09:00 Polyethylene Glycol 3350 17 Gm Powd.Pack PO DAILY NEIL Potassium Chloride 10 meq 05/05/25 09:00 05/11/25 09:10 Potassium Chloride 10 Meq Er Tablet PO 10 meq DAILY NEIL Administration Senna/Docusate Sodium 1 tab 05/05/25 21:00 05/11/25 20:09 Senna/Docusate Sodium Tablet PO 1 tab HS NEIL Administration Sodium Chloride 1 gm 05/06/25 09:00 05/11/25 17:03 Sodium Chloride 1 Gm Tablet PO 1 gm BID NEIL Administration Thiamine HCl 100 mg 05/05/25 09:00 05/11/25 09:11 Thiamine Hcl 100 Mg Tablet PO 100 mg QAM NEIL Administration Radiology Results: ITS Impressions Thoracic/Lumbar Spine CT 05/04/25 14:04 IMPRESSION: Small right pleural effusion. Acute/subacute mild compression fractures at T9, T10, and T12. 5 mm groundglass and 15 mm mixed groundglass/solid right upper lobe pulmonary nodules that have increased in size slightly since the October comparison CT. Recommend biopsy or PET/CT. No acute fracture or traumatic malalignment detected in the lumbar spine. Abdomen X-Ray 05/06/25 19:50 IMPRESSION: Suggestion of gastric fold thickening as can be seen with gastritis or varices. Suggestion of small bowel wall thickening, may reflect enteritis. Head CT 05/06/25 19:54 Impression: No acute intracranial hemorrhage or suspicious mass effect. Abdomen/Pelvis CT 05/06/25 20:40 IMPRESSION: Small volume pericardial fluid versus pericardial thickening. Small right pleural effusion with adjacent atelectasis. Infection not excluded. Moderate gastric distention with prominent folds and may represent gastric varices. Cirrhosis with portal hypertension. Mild gastric distention with prominent gastric folds that may represent gastric varices. Proximal small bowel wall thickening as can be seen with enteritis. Segmental wall thickening in the transverse and sigmoid colon, as can be seen with infectious, inflammatory, or ischemic colitis. Possible mild fecal impaction and constipation. Distended urinary bladder, correlate for urinary retention. Progressive mild-moderate multilevel compression fractures in the thoracic and lumbar spine. Brain MRI 05/07/25 13:49 IMPRESSION: 1. Severely limited study which was terminated prematurely at patient request due to back pain following only the sagittal T1-weighted imaging. Unable to assess for either acute infarction or T2-weighted signal changes and significantly decrease sensitivity for intracranial hemorrhage which was not observed. 2. Mild age-appropriate diffuse volume loss. Ankle Brachial Index 05/09/25 09:11 IMPRESSION: 1. Diminished bilateral toe brachial indices consistent with peripheral arterial disease. Heel X-Ray 05/11/25 18:05 IMPRESSION: No acute osseous finding in the right heel. Sacrum and Coccyx X-Ray 05/11/25 18:06 IMPRESSION: Exam limited by rotation in the lateral view and osteopenia. No definite fracture or erosion to suggest osteomyelitis. If clinical suspicion is high recommend CT of the pelvis with contrast for further evaluation. Labs Labs: Laboratory Results - last 24 hr 05/11/25 05/11/25 05/11/25 07:54 11:36 14:01 WBC RBC Hgb Hct MCV MCH MCHC RDW Plt Count MPV ESR Sodium Potassium Chloride Carbon Dioxide Anion Gap BUN Creatinine Estim Creat Clear Calc Estimated GFR Glucose POC Capillary Glucose 103 178 H Calcium Phosphorus C-Reactive Protein Albumin Nasal MRSA (PCR) Not detected 05/11/25 05/11/25 05/12/25 16:59 20:13 05:43 WBC 6.7 RBC 3.29 L Hgb 10.7 L Hct 33.0 L MCV 100.3 H MCH 32.5 MCHC 32.4 RDW 15.0 H Plt Count 224 MPV 10.0 ESR 101 H Sodium 134 L Potassium 3.2 L Chloride 101 Carbon Dioxide 24 Anion Gap 9 BUN 33 H Creatinine 1.12 H Estim Creat Clear Calc 37 Estimated GFR 48 L Glucose 114 H POC Capillary Glucose 168 H 150 H Calcium 9.2 Phosphorus 4.5 C-Reactive Protein 5.4 H Albumin 3.0 L Nasal MRSA (PCR)
[2025-05-12] MEDS: oxyCODONE HCL (*CRX) 2.5 MG TAB IR PO ×2 (09:33→16:50)
--- NOTE | 2025-05-12 10:19 | P.CONGS_ITS ---
Assessment and Plan Assessment and plan (1) Abscess of buttock, left: Code(s): L02.31 - Cutaneous abscess of buttock Status: Acute Assessment and Plan: * The patient has a chronic stage III left buttock decubitus ulcer. This has become infected and she has developed a left buttock abscess that will need incision and drainage. Description of the procedure, risks, benefits, alternatives, and expected recovery were discussed with the patient in detail. She agrees to proceed. Continue IV antibiotics. Will work on adding her onto the surgery schedule today. Lung biopsy cancelled until after the abscess is addressed. (2) Decubitus ulcer: Qualifiers: Pressure injury location: buttock Pressure injury stage: unspecified pressure injury stage Laterality: unspecified laterality Qualified Code(s): L 89.309 - Pressure ulcer of unspecified buttock, unspecified stage Code(s): L89.90 - Pressure ulcer of unspecified site, unspecified stage Status: Acute Assessment and Plan: * Chronic stage III right heel decubitus ulcer appears stable with no signs of infection. Continue local wound care and pressure offloading. No indication for surgical intervention at this time. (3) Compression fracture: Status: Acute Assessment and Plan: * Acute on chronic back pain is the reason for her admission. Found to have acute thoracic fractures. Neurosurgery evaluated and recommending outpatient follow-up. (4) Pulmonary nodule: Code(s): R91.1 - Solitary pulmonary nodule Status: Acute Assessment and Plan: * Pulmonary nodules incidentally noted on CT. Scheduled for lung biopsy today. Would recommend postponing the lung biopsy, which is not urgent, until after we have treated the buttock abscess. Will schedule I&D this afternoon. 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 Iglesias. Thank you for allowing us to see the patient in consultation and we will continue to follow along with you. History of Present Illness Consult details Consult date: 05/12/25 Reason for consult: other (Sacral wound) Requesting physician: Aleisha Alexis APRN Narrative: This is a 70-year-old woman with history of diabetes, alcohol abuse, liver cirrhosis, and multiple other medical problems, who is wheelchair bound at home and has chronic decubitus ulcers on her buttocks and right heel. She came into the ER 8 days ago for acute on chronic back pain and was admitted with acute thoracic fractures. She was also found to have pulmonary nodules on CT and is scheduled for a lung biopsy today. She has been evaluated by wound care multiple times in the past and last seen a week ago. Wounds appeared stable at that time and were treated with silver gel. Yesterday, there was concern regarding an infected buttock wound and she was started on empiric antibiotics. Cultures were obtained. Our service was consulted. She is now seen on the medical floor for surgical consultation for the buttock wound and possible surgical debridement. Review of Systems 2 Review of Systems: All systems reviewed & are unremarkable except as noted in HPI and below PMFSH Past Medical History Medical History Alcoholic cirrhosis of liver Chronic venous insufficiency of lower extremity Stage 3a chronic kidney disease Shingles ANTHONY (obstructive sleep apnea) Osteoporosis Gram-negative bacteremia Anemia of chronic disease Ascites Obesity (BMI 30-39.9) Hyperlipidemia, unspecified Carotid artery disease Alcohol abuse Osteoarthritis Diastolic dysfunction ECHO 10/2023: normal LV systolic function, estimated EF of 60-65%, abnormal diastolic dysfunction. Left-sided carotid artery disease US 01/2021: 50 to 69% stenosis of the left ICA. Orthostatic hypotension on midodrine, chronic hypotension, previously caused syncope and frequent falls and subsequent fractures. Insulin dependent type 2 diabetes mellitus A1C 5.1% 08/2024 Chronic hyponatremia Eczema Periprosthetic fracture of femur following total replacement of hip (01/2020) Non operative treatment. GERD (gastroesophageal reflux disease) Surgical History Surgical History Status post open reduction with internal fixation of fracture (05/30/21) ORIF of comminuted intra-articular fracture of the distal left femur, done at [facility]. History of hysterectomy (2005) Due to uterine fibroids and endometriosis. History of bilateral cataract extraction History of lumbar surgery (2005) L1-L3. History of right hip replacement (2005) Per Dr. Curiel in [place]. Family History Family History Father Heart attack Mother Diabetes mellitus COPD (chronic obstructive pulmonary disease) Hypertension Afib Sibling Amputation above knee Diabetes mellitus Father , At age 50 Acute myocardial infarction Sibling , At age 50 Pancreatic cancer Social History Social History Social History: The patient lives in her own home in [place]. She has been twice, her 1st and she has since her 2nd . She has no children. She moved to this area within the last couple of years from [place] to be close to her 3 remaining siblings. She worked from home for a [email or web address] doing [employer] and she has a master's degree in statistics. She has recently retired.She smoked up to 2 packs of cigarettes a day before quitting in 2005. She drinks 2 mixed drinks a day, each containing a shot of vodka which equals out to about 1 L to 1.7 L of vodka a week. She denies illicit substance use. Surrogate decision maker: Miladys Jensen, sister. Code status: Full code. Smoking packs per day: 2 Smoking cigarettes per day: 40.0 Years smoked: 30 Smoking pack-years: 60.00 Smoking status: Never smoker Smokeless tobacco user: chewing tobacco Second hand tobacco smoke exposure: No Alcohol intake: never Drinks per week: 14 Substance use: never Substance use type: does not use Do You Feel Safe in your Home?: Yes Lack of Transportation: No Lack of Food: Never True Current Housing: I Have Housing Concerned About Future Housing: No Difficulty Paying Gas/Electric Bills: No Difficulty Paying for Meds: No Currently Unemployed: No Education: Decline to Answer Difficulty w/ Childcare or Family Care: No Living arrangements: alone Occupation/Education: retired Gender identity (if verbalized by the patient): Female Sexual Orientation (if Verbalized by the Patient): Straight or Heterosexual Spiritual care concerns: No Meds Home Medications and Allergies Home Medications ?Medication ?Instructions ?Recorded ?Confirmed ?Type fluticasone propionate 50 1 spray intranasal DAILY PRN 08/16/20 05/04/25 History mcg/actuation nasal allergies spray,suspension thiamine HCl (vitamin B1) 100 mg 100 mg PO QAM #30 tabs 08/18/20 05/04/25 Rx tablet (Vitamin B-1) wrgqebexxtuq-Ol-ptdb-minerals 1 tablet PO DAILY #30 tabs 01/16/21 05/04/25 Rx (Multiple Vitamin, Womens tablet) blood sugar diagnostic #360 ea 10/31/22 05/04/25 Rx empagliflozin 10 mg tablet 10 mg PO DAILY #30 tabs 10/26/23 05/04/25 Rx (Jardiance) alendronate 70 mg tablet 70 mg PO WEEKLY #12 tabs 12/12/23 05/04/25 Rx ascorbate calcium (vitamin C) 500 500 mg PO DAILY 06/20/24 05/04/25 History mg tablet folic acid 800 mcg tablet 0.8 mg PO DAILY 06/20/24 05/04/25 History pen needle, diabetic 32 gauge x #360 ea 09/11/24 05/04/25 Rx 5/32 (BD Muriel 2nd Gen Pen Needle) blood-glucose sensor (Dexcom G7 #3 ea 09/13/24 05/04/25 Rx Sensor device) potassium chloride 10 mEq 10 meq PO DAILY #90 caps 09/30/24 05/04/25 Rx capsule,extended release ferrous sulfate 325 mg (65 mg 325 mg PO DAILY 01/16/25 05/04/25 History iron) tablet (Leonard-Time) insulin lispro 100 unit/mL 3 unit subcut TID 01/16/25 05/04/25 History subcutaneous pen (Humalog KwikPen (U-100) Insulin) lanolin alcohols-mineral 1 applic topical DAILY 01/16/25 05/04/25 History oil-w.petrolatum-ceresin topical cream spironolactone 25 mg tablet 50 mg PO QAM 01/31/25 05/04/25 History lidocaine 5 % topical patch 1 patch topical DAILY 03/05/25 05/04/25 History bumetanide 1 mg tablet 1 mg PO BID #60 tabs 04/01/25 05/04/25 Rx metolazone 2.5 mg tablet 2.5 mg PO DAILY 04/01/25 05/04/25 History sodium chloride 1 gram tablet 1,000 mg PO DAILY 04/01/25 05/04/25 History tramadol 50 mg tablet 50 mg PO Q8H PRN pain #30 tabs 04/22/25 05/04/25 Rx atorvastatin 10 mg tablet 10 mg PO QAM #90 tabs 04/28/25 05/04/25 Rx baclofen 10 mg tablet 10 mg PO BID #20 tabs 05/02/25 05/04/25 Rx insulin glargine 100 unit/mL (3 15 unit subcut QPM 05/04/25 05/04/25 History mL) subcutaneous pen (Lantus Solostar U-100 Insulin) methocarbamol 750 mg tablet 750 mg PO TID 05/04/25 05/04/25 History Allergies Allergy/AdvReac Type Severity Reaction Status Date / Time codeine AdvReac Unknown Headache Verified 05/04/25 10:29 Vital Signs Vital Signs - 24 hr 05/11/25 14:00 05/11/25 21:47 05/12/25 06:00 Temperature 98.3 F 97.9 F 97.8 F Pulse Rate 103 H 98 97 Respiratory Rate 18 20 20 Blood Pressure 95/57 L 117/63 105/56 L Pulse Oximetry 99 100 100 Exam 2 Const: General: comfortable and no acute distress O rientation/consciousness: patient oriented x3 HENMT: Head: normocephalic and atraumatic Ears: hearing grossly normal bilaterally Eyes: General: appearance normal, both eyes and all related structures P upils: Equal, round and reactive pupils present Neck: Neck: normal visual inspection and full ROM Resp: Effort & Inspection: no respiratory distress Auscultation: clear to auscultation bilaterally Cardio: Rate: regular rate Rhythm: regular rhythm GI: Inspection: other (diastasis recti, mildly distended) GI Palp: Yes Soft to palpation, No Tenderness to palpation present (GI), No Guarding due to palpation present (GI), Yes No hepatosplenomegaly present and No Rebound tenderness present Auscultation: normal bowel sounds Rectal Exam: deferred Skin: General skin exam: normal color Other: Left buttock with 3 small open wounds, the center wound measures 0.5 x 0.5 cm with purulent drainage and probes about 6-7 cm towards the more cephalad wound that has yellow slough. There is about a 7x7 cm area of mild induration around the 2 cephalad wounds with tenderness in this area. The more caudal wound appears more superficial with no purulent drainage, no erythema, and no induration. There is another larger macerated wound that is superficial with 100% pink wound bed near the center and extending to the right buttock. Stage III right heel ulcer measuring about 1.5 x 1 x 0.3 cm with pink wound bed. No purulent drainage, no surrounding erythema, and no tenderness. Dry scab on the right anterior medial ankle with no surrounding erythema or drainage. Chronic venous stasis skin changes on bilateral lower legs with mild edema equal bilaterally. Neuro: General: moves all extremities and no focal motor deficits Speech: n ormal speech Psych: Mental Status: mental status grossly normal Attitude: cooperative Insight: Fair insight present (Psych) Judgement: Fair judgement present (Psych) Results Labs 05/12/25 05:43 05/12/25 05:43 Labs: Abnormal lab results 05/11/25 05/11/25 05/11/25 Range/Units 11:36 16:59 20:13 RBC (4.2-5.4) M/mm3 Hgb (12.0-15.0) g/dL Hct (37.0-47.0) % MCV (80-100) fl RDW (11.5-14.5) % ESR (0-20) mm/hr Sodium (137-145) mmol/L Potassium (3.4-5.0) mmol/L BUN (7-17) mg/dL Creatinine (0.7-1.0) mg/dL Estimated GFR (59 - ) Glucose (65-110) mg/dL POC Capillary Glucose 178 H 168 H 150 H (65-105) mg/dl C-Reactive Protein (<1.0) mg/dL Albumin (3.5-5.1) g/dL 05/12/25 05/12/25 Range/Units 05:43 07:49 RBC 3.29 L (4.2-5.4) M/mm3 Hgb 10.7 L (12.0-15.0) g/dL Hct 33.0 L (37.0-47.0) % MCV 100.3 H (80-100) fl RDW 15.0 H (11.5-14.5) % ESR 101 H (0-20) mm/hr Sodium 134 L (137-145) mmol/L Potassium 3.2 L (3.4-5.0) mmol/L BUN 33 H (7-17) mg/dL Creatinine 1.12 H (0.7-1.0) mg/dL Estimated GFR 48 L (59 - ) Glucose 114 H (65-110) mg/dL POC Capillary Glucose 111 H (65-105) mg/dl C-Reactive Protein 5.4 H (<1.0) mg/dL Albumin 3.0 L (3.5-5.1) g/dL Diabetes panel 05/12/25 Range/Units 05:43 Sodium 134 L (137-145) mmol/L Potassium 3.2 L (3.4-5.0) mmol/L Chloride 101 (98-107) mmol/L Carbon Dioxide 24 (22-30) mmol/L BUN 33 H (7-17) mg/dL Creatinine 1.12 H (0.7-1.0) mg/dL Glucose 114 H (65-110) mg/dL Calcium 9.2 (8.4-10.2) mg/dL Albumin 3.0 L (3.5-5.1) g/dL Calcium panel 05/12/25 Range/Units 05:43 Calcium 9.2 (8.4-10.2) mg/dL Phosphorus 4.5 (2.5-4.5) mg/dL Albumin 3.0 L (3.5-5.1) g/dL Pituitary panel 05/12/25 Range/Units 05:43 Sodium 134 L (137-145) mmol/L Potassium 3.2 L (3.4-5.0) mmol/L Chloride 101 (98-107) mmol/L Carbon Dioxide 24 (22-30) mmol/L BUN 33 H (7-17) mg/dL Creatinine 1.12 H (0.7-1.0) mg/dL Glucose 114 H (65-110) mg/dL Calcium 9.2 (8.4-10.2) mg/dL Adrenal panel 05/12/25 Range/Units 05:43 Sodium 134 L (137-145) mmol/L Potassium 3.2 L (3.4-5.0) mmol/L Chloride 101 (98-107) mmol/L Carbon Dioxide 24 (22-30) mmol/L BUN 33 H (7-17) mg/dL Creatinine 1.12 H (0.7-1.0) mg/dL Glucose 114 H (65-110) mg/dL Calcium 9.2 (8.4-10.2) mg/dL Albumin 3.0 L (3.5-5.1) g/dL All other labs normal. Imaging Additional studies: ITS Impressions Thoracic/Lumbar Spine CT 05/04/25 14:04 IMPRESSION: Small right pleural effusion. Acute/subacute mild compression fractures at T9, T10, and T12. 5 mm groundglass and 15 mm mixed groundglass/solid right upper lobe pulmonary nodules that have increased in size slightly since the October comparison CT. Recommend biopsy or PET/CT. No acute fracture or traumatic malalignment detected in the lumbar spine. Abdomen X-Ray 05/06/25 19:50 IMPRESSION: Suggestion of gastric fold thickening as can be seen with gastritis or varices. Suggestion of small bowel wall thickening, may reflect enteritis. Head CT 05/06/25 19:54 Impression: No acute intracranial hemorrhage or suspicious mass effect. Abdomen/Pelvis CT 05/06/25 20:40 IMPRESSION: Small volume pericardial fluid versus pericardial thickening. Small right pleural effusion with adjacent atelectasis. Infection not excluded. Moderate gastric distention with prominent folds and may represent gastric varices. Cirrhosis with portal hypertension. Mild gastric distention with prominent gastric folds that may represent gastric varices. Proximal small bowel wall thickening as can be seen with enteritis. Segmental wall thickening in the transverse and sigmoid colon, as can be seen with infectious, inflammatory, or ischemic colitis. Possible mild fecal impaction and constipation. Distended urinary bladder, correlate for urinary retention. Progressive mild-moderate multilevel compression fractures in the thoracic and lumbar spine. Brain MRI 05/07/25 13:49 IMPRESSION: 1. Severely limited study which was terminated prematurely at patient request due to back pain following only the sagittal T1-weighted imaging. Unable to assess for either acute infarction or T2-weighted signal changes and significantly decrease sensitivity for intracranial hemorrhage which was not observed. 2. Mild age-appropriate diffuse volume loss. Ankle Brachial Index 05/09/25 09:11 IMPRESSION: 1. Diminished bilateral toe brachial indices consistent with peripheral arterial disease. Heel X-Ray 05/11/25 18:05 IMPRESSION: No acute osseous finding in the right heel. Sacrum and Coccyx X-Ray 05/11/25 18:06 IMPRESSION: Exam limited by rotation in the lateral view and osteopenia. No definite fracture or erosion to suggest osteomyelitis. If clinical suspicion is high recommend CT of the pelvis with contrast for further evaluation.
--- NOTE | 2025-05-12 11:25 | PCNFU ---
Nutrition Follow-Up Complete: Increased nutrient needs related to altered skin integrity as evidenced by a noted stage III to buttocks Goal:PO Intake 75% Pt meeting goal, continue with same goal Pt current nutrition is NPO today for a procedure, was Diabetic,, 1800ml fluid restriction, Glucerna shakes BID. Nutrition recommendation: resume diet post procedure Last recorded weight is 67.3 kg. Bowel Motility: +BM 05/12 Labs Reviewed: Hgb:10.7, HCt:33, Alb:3.0, NA:134, K:3.2, BUN:33, Cr:1.1, Glu:114 Meds Noted: Bumex, jardiance, novolog, KCL Skin: Stage III left buttocks Additional Notes: Pt NPO today for procedure but has been on a diabetic diet and eating well, drinking the Glucerna shakes. Resume diet post procedure Monitor intake, wt, labs, skin. Follow up in 7 days
--- NOTE | 2025-05-12 11:33 | P.PNNP_ITS ---
Progress Note: A&P Assessment and Plan (1) Hyponatremia: Code(s): E87.1 - Hypo-osmolality and hyponatremia Status: Acute Assessment and Plan: * acute on chronic * chronicity from CKD, CHF, diuretics therapy and liver disease * acute from increased fluid intake + pain + narcotics + urinary retention * outpatient therapy = low dose loop diuretics, salt tabs, and fluid restriction (and this usually keeps her stable) * on bumex for swelling/edema and salt tablets to keep the bumex from dropping the sodium along with fluid restriction * continue current therapy * follow trend of sodium levels (2) Chronic kidney disease, stage 3: Qualifiers: Chronic kidney disease stage 3 subtype: stage 3b (GFR 30-44) Qualified Code(s): N18.32 - Chronic kidney disease, stage 3b Code(s): N18.30 - Chronic kidney disease, stage 3 unspecified Status: Chronic Assessment and Plan: * baseline creatinine runs ~ 1.3 - 1.7mg/dl * this causes her to fluctuate between CKD stage 3A and stage 3B * creatinine has been higher in the due to more aggresive diuresis * presumably related to her CHF, previous HTN (not an issue now), DM, vascular disease, liver disease and need for chronic diuretic therapy * her creatinine better than baseline - suspect due to bedrest/immobilization and decreased muscle mass and associated drop in creatinine production (3) Decubitus ulcer of left buttock, stage 3: Code(s): L89.323 - Pressure ulcer of left buttock, stage 3 Status: Acute Assessment and Plan: * chronic * however, now complicated by acute infection and abscess * plan I&D in OR later today * on antibiotics * follow culture data (4) Chronic anemia: Code(s): D64.9 - Anemia, unspecified Status: Chronic Assessment and Plan: * likely related to CKD and liver disease * follow trend of H/H * no need for ENMANUEL at this time (5) Acute on chronic back pain: Code(s): M54.9 - Dorsalgia, unspecified; G89.29 - Other chronic pain Status: Acute Assessment and Plan: * as noted by imagingL * CT thoracic/lumbar spine with acute/subacute mild compression fractures at T9, T10, and T12 with no acute fracture or traumatic malalignment detected in the lumbar spine * admitted for pain control * continue PT/OT * pain control * Neurosurgery recommendations noted (6) Alcoholic cirrhosis of liver: Qualifiers: Ascites presence: without ascites Qualified Code(s): K70.30 - Alcoholic cirrhosis of liver without ascites Code(s): K70.30 - Alcoholic cirrhosis of liver without ascites Status: Chronic Assessment and Plan: * follows with GI * LFTs normal * noted plans for further outpatient testing * continue supportive therapy (7) Decubitus ulcer of right heel, stage 3: Code(s): L89.613 - Pressure ulcer of right heel, stage 3 Status: Acute Assessment and Plan: * chronic and stable * complicated by evidence of peripheral arterial disease as noted by ABIs * no signs of infection * X-ray of right heel without evidence of osteomyelitis * local wound care * pressure offloading * no need for surgical intervention at this time (8) Pulmonary nodule: Code(s): R91.1 - Solitary pulmonary nodule Status: Acute Assessment and Plan: * recent CT scan with 5 mm groundglass and 15 mm mixed groundglass/solid right upper lobe pulmonary nodules that have increased in size slightly since the October comparison CT * had planned biopsy as inpatient but deferred due to #3 * likely plan outpatient follow-up (9) Urinary retention: Code(s): R33.9 - Retention of urine, unspecified Status: Acute Assessment and Plan: * noted on this admission (but has been noted on previous hospitalizations as well) * pleitez catheter in place * voiding trial prior to discharge (10) Diabetes mellitus: Qualifiers: Diabetes mellitus complication status: without complication 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 L Subjective Date/time seen: 05/12/25 11:33 Interval history: Follow-up for chronic kidney disease and acute on chronic hyponatremia. Chart reviewed -- assuming care from Dr. Samayoa; renal function/creatinine stable (if not better than baseline) with improvement in sodium level as well; noted plans for surgery later today (for buttock wound/abscess) and hence is NPO; asking me if her fluid restriction can be discontinued. Exam 2 Narrative: General: elderly but WD/WN female in NAD Heart: normal S1 and S2; no rub Lungs: clear anteriorly; decreased at bases Abdomen: soft, mild distension, positive bowel sounds Extremities: no cyanosis or clubbing; 1+ edema Skin: chronic skin changes present Objective Data Vital Signs Vital Signs: Vital Signs Temp Pulse Resp BP Pulse Ox O2 Del Method O2 Flow Rate 05/12/25 11:31 97.1 F L 99 16 121/50 L 100 Room Air 05/12/25 08:00 Room Air 05/12/25 06:00 97.8 F 97 20 105/56 L 100 05/11/25 21:47 97.9 F 98 20 117/63 100 Intake/Output Intake/Output: Intake & Output 05/09/25 05/10/25 05/11/25 05/12/25 23:59 23:59 23:59 23:59 Intake Total 1002 1020 1270 390 Output Total 2250 2300 1900 850 Balance -1248 -1280 -630 -460 Meds/Results Medications: Active Medications Generic Name Dose Route Start Last Admin Trade Name Freq PRN Reason Stop Dose Admin Acetaminophen 1,000 mg 05/05/25 17:00 05/12/25 16:41 Acetaminophen 500 Mg Tablet PO 1,000 mg TID NEIL Administration Ascorbic Acid 500 mg 05/05/25 09:00 05/12/25 16:42 Ascorbic Acid 500 Mg Tablet PO 500 mg DAILY NEIL Administration Atorvastatin Calcium 10 mg 05/05/25 09:00 05/12/25 16:41 Atorvastatin 10 Mg Tablet PO 10 mg QAM NEIL Administration Bumetanide 1 mg 05/04/25 17:00 05/06/25 08:22 Bumetanide 1 Mg Tablet PO 1 mg BID NEIL Administration Calcium Carbonate 200 mg 05/11/25 15:11 05/11/25 15:18 Calcium Carbonate (Tums) 500 Mg (200 Mg Elemental) PO 200 mg Q6H PRN Administration Indigestion Dextrose 12.5 gm 05/04/25 16:57 Dextrose 50% 25 Gm/50 Ml Syringe IV PUSH PRN PRN Hypoglycemia Protocol Doxycycline Hyclate 100 mg 05/11/25 21:00 05/12/25 16:41 Doxycycline Hyclate 100 Mg Tablet PO 100 mg Q12HR NEIL Administration Empagliflozin 10 mg 05/05/25 09:00 05/12/25 16:41 Empagliflozin 10 Mg Tablet PO 10 mg DAILY NEIL Administration Ferrous Sulfate 325 mg 05/05/25 09:00 05/12/25 16:42 Ferrous Sulfate [address] PO 325 mg DAILY NEIL Administration Fluticasone Propionate 1 spray 05/04/25 16:59 Fluticasone Propionate 0.05% Na Spr 16 Gm Btl (*Bkc) NASAL DAILY PRN allergies Folic Acid 0.8 mg 05/05/25 09:00 05/12/25 16:41 Folic Acid 0.4 Mg Tablet PO 0.8 mg DAILY NEIL Administration Gabapentin 300 mg 05/05/25 21:00 05/05/25 21:28 Gabapentin 300 Mg Capsule PO 300 mg HS NEIL Administration Glucagon 1 mg 05/04/25 16:57 Glucagon For Inj 1 Mg Vial IM PRN PRN Hypoglycemia Protocol Glucose 15 gm 05/04/25 16:57 Glucose Oral Gel 15 Gm Of Glucse In 37.5 Gm Tube PO PRN PRN Hypoglycemia Protocol Heparin Sodium (Porcine) 5,000 units 05/13/25 21:00 Heparin Sodium 5,000 Units/Ml Vial SUB-Q Q12HR NEIL Hydromorphone HCl 0.5 mg 05/05/25 13:45 05/06/25 22:15 Hydromorphone Hcl Inj (*Crx) 2 Mg/Ml Vial IV PUSH 0.5 mg Q3H PRN Administration Breakthrough Pain Ceftriaxone Sodium 2 gm/ 100 mls @ 200 mls/hr 05/11/25 14:00 05/12/25 15:17 Sodium Chloride IVPB Infused Q24H [facility] Infusion Insulin Aspart 4 - 8 units 05/04/25 17:00 05/12/25 16:43 Insulin Aspart (*Bkc) 100 Units/Ml SUB-Q Not Given TIDWM [facility] Protocol Insulin Aspart 3 units 05/04/25 17:20 05/12/25 16:43 Insulin Aspart (*Bkc) 100 Units/Ml SUB-Q Not Given ACINSULIN [facility] Insulin Glargine 10 units 05/08/25 21:00 05/11/25 20:13 Insulin Glargine (*Bkc) 100 Units/Ml SUB-Q 10 units HS [facility] Administration Lidocaine 1 patch 05/05/25 09:00 05/12/25 09:23 Lidocaine 5% Patch TOPICAL Not Given DAILY NEIL Methocarbamol 750 mg 05/04/25 17:00 05/06/25 17:12 Methocarbamol 750 Mg Tablet PO 750 mg TID NEIL Administration Metronidazole 500 mg 05/11/25 14:00 05/12/25 16:42 Metronidazole 500 Mg Tablet PO 500 mg Q8HR NEIL Administration Multi-Ingred Cream/Lotion/Oil/Oint 1 applic 05/04/25 17:23 Eucerin Cream 454 Gm Jar TOPICAL PRN PRN DRESSING CHANGES Multi-Ingred Cream/Lotion/Oil/Oint 1 applic 05/05/25 09:00 05/12/25 16:42 Eucerin Cream 454 Gm Jar TOPICAL 1 applic DAILY NEIL Administration Multivitamins/Calcium 1 tablet 05/05/25 09:00 05/12/25 16:42 Therapeutic Multivitamins/Minerals Tab (*Bkc) PO 1 tablet DAILY NEIL Administration Ondansetron HCl 4 mg 05/06/25 09:43 05/06/25 17:22 Ondansetron Inj 4 Mg/2 Ml Vial IV PUSH 4 mg Q4H PRN Administration Nausea And Vomiting Oxycodone HCl 2.5 mg 05/05/25 13:45 05/12/25 16:50 Oxycodone Hcl (*Crx) 2.5 Mg Tab Ir PO 2.5 mg Q4H PRN Administration Moderate Pain (4-6) Oxycodone HCl 5 mg 05/05/25 13:53 05/12/25 16:50 Oxycodone Hcl (*Crx) 5 Mg Tab Ir PO 5 mg Q4H PRN Administration Severe Pain Polyethylene Glycol 17 gm 05/13/25 09:00 Polyethylene Glycol 3350 17 Gm Powd.Pack PO DAILY NEIL Potassium Chloride 10 meq 05/05/25 09:00 05/12/25 16:41 Potassium Chloride 10 Meq Er Tablet PO 10 meq DAILY NEIL Administration Senna/Docusate Sodium 1 tab 05/05/25 21:00 05/11/25 20:09 Senna/Docusate Sodium Tablet PO 1 tab HS NEIL Administration Sodium Chloride 1 gm 05/06/25 09:00 05/12/25 16:42 Sodium Chloride 1 Gm Tablet PO 1 gm BID NEIL Administration Thiamine HCl 100 mg 05/05/25 09:00 05/12/25 16:42 Thiamine Hcl 100 Mg Tablet PO 100 mg QAM NEIL Administration Radiology Results: ITS Impressions Thoracic/Lumbar Spine CT 05/04/25 14:04 IMPRESSION: Small right pleural effusion. Acute/subacute mild compression fractures at T9, T10, and T12. 5 mm groundglass and 15 mm mixed groundglass/solid right upper lobe pulmonary nodules that have increased in size slightly since the October comparison CT. Recommend biopsy or PET/CT. No acute fracture or traumatic malalignment detected in the lumbar spine. Abdomen X-Ray 05/06/25 19:50 IMPRESSION: Suggestion of gastric fold thickening as can be seen with gastritis or varices. Suggestion of small bowel wall thickening, may reflect enteritis. Head CT 05/06/25 19:54 Impression: No acute intracranial hemorrhage or suspicious mass effect. Abdomen/Pelvis CT 05/06/25 20:40 IMPRESSION: Small volume pericardial fluid versus pericardial thickening. Small right pleural effusion with adjacent atelectasis. Infection not excluded. Moderate gastric distention with prominent folds and may represent gastric varices. Cirrhosis with portal hypertension. Mild gastric distention with prominent gastric folds that may represent gastric varices. Proximal small bowel wall thickening as can be seen with enteritis. Segmental wall thickening in the transverse and sigmoid colon, as can be seen with infectious, inflammatory, or ischemic colitis. Possible mild fecal impaction and constipation. Distended urinary bladder, correlate for urinary retention. Progressive mild-moderate multilevel compression fractures in the thoracic and lumbar spine. Brain MRI 05/07/25 13:49 IMPRESSION: 1. Severely limited study which was terminated prematurely at patient request due to back pain following only the sagittal T1-weighted imaging. Unable to assess for either acute infarction or T2-weighted signal changes and significantly decrease sensitivity for intracranial hemorrhage which was not observed. 2. Mild age-appropriate diffuse volume loss. Ankle Brachial Index 05/09/25 09:11 IMPRESSION: 1. Diminished bilateral toe brachial indices consistent with peripheral arterial disease. Heel X-Ray 05/11/25 18:05 IMPRESSION: No acute osseous finding in the right heel. Sacrum and Coccyx X-Ray 05/11/25 18:06 IMPRESSION: Exam limited by rotation in the lateral view and osteopenia. No definite fracture or erosion to suggest osteomyelitis. If clinical suspicion is high recommend CT of the pelvis with contrast for further evaluation. Labs Labs: Laboratory Tests 05/12/25 05:43 05/12/25 05:43 Calcium 9.2 Phosphorus 4.5 C-Reactive Protein 5.4 H Albumin 3.0 L
--- NOTE | 2025-05-12 13:18 | P.PNAN_ITS ---
Anes - Initial Pre Proc Eval Procedure: Operation Date: 05/12/25 14:30 Proposed Procedures p Incision And Drainage Buttock Abscess - Lavelle Iglesias DO Date/Time: 05/12/25 13:18 Surgeon: Bradley Kimball MD Pre Op Diagnosis: Pain Management/Compression Fractures Patient Data Age: 70 Gender: F Height: 1.65 m Weight: 67.3 kg Last Vital Signs Temp 36.6 C 05/12/25 06:00 Pulse 97 05/12/25 06:00 Resp 20 05/12/25 06:00 BP 105/56 L 05/12/25 06:00 Pulse Ox 100 05/12/25 06:00 O2 Del Method Room Air 05/12/25 08:00 FiO2 21 05/10/25 20:00 Allergies Allergy/AdvReac Type Severity Reaction Status Date / Time codeine AdvReac Unknown Headache Verified 05/04/25 10:29 Home Medications ?Medication ?Instructions ?Recorded ?Confirmed ?Type fluticasone propionate 50 1 spray intranasal DAILY PRN 08/16/20 05/04/25 History mcg/actuation nasal allergies spray,suspension thiamine HCl (vitamin B1) 100 mg 100 mg PO QAM #30 tabs 08/18/20 05/04/25 Rx tablet (Vitamin B-1) [id number]-Rl-xjyx-minerals 1 tablet PO DAILY #30 tabs 01/16/21 05/04/25 Rx (Multiple Vitamin, Womens tablet) blood sugar diagnostic #360 ea 10/31/22 05/04/25 Rx empagliflozin 10 mg tablet 10 mg PO DAILY #30 tabs 10/26/23 05/04/25 Rx (Jardiance) alendronate 70 mg tablet 70 mg PO WEEKLY #12 tabs 12/12/23 05/04/25 Rx ascorbate calcium (vitamin C) 500 500 mg PO DAILY 06/20/24 05/04/25 History mg tablet folic acid 800 mcg tablet 0.8 mg PO DAILY 06/20/24 05/04/25 History pen needle, diabetic 32 gauge x #360 ea 09/11/24 05/04/25 Rx 5/32 (BD Muriel 2nd Gen Pen Needle) blood-glucose sensor (Dexcom G7 #3 ea 09/13/24 05/04/25 Rx Sensor device) potassium chloride 10 mEq 10 meq PO DAILY #90 caps 09/30/24 05/04/25 Rx capsule,extended release ferrous sulfate 325 mg (65 mg 325 mg PO DAILY 01/16/25 05/04/25 History iron) tablet (Leonard-Time) insulin lispro 100 unit/mL 3 unit subcut TID 01/16/25 05/04/25 History subcutaneous pen (Humalog KwikPen (U-100) Insulin) lanolin alcohols-mineral 1 applic topical DAILY 01/16/25 05/04/25 History oil-w.petrolatum-ceresin topical cream spironolactone 25 mg tablet 50 mg PO QAM 01/31/25 05/04/25 History lidocaine 5 % topical patch 1 patch topical DAILY 03/05/25 05/04/25 History bumetanide 1 mg tablet 1 mg PO BID #60 tabs 04/01/25 05/04/25 Rx metolazone 2.5 mg tablet 2.5 mg PO DAILY 04/01/25 05/04/25 History sodium chloride 1 gram tablet 1,000 mg PO DAILY 04/01/25 05/04/25 History tramadol 50 mg tablet 50 mg PO Q8H PRN pain #30 tabs 04/22/25 05/04/25 Rx atorvastatin 10 mg tablet 10 mg PO QAM #90 tabs 04/28/25 05/04/25 Rx baclofen 10 mg tablet 10 mg PO BID #20 tabs 05/02/25 05/04/25 Rx insulin glargine 100 unit/mL (3 15 unit subcut QPM 05/04/25 05/04/25 History mL) subcutaneous pen (Lantus Solostar U-100 Insulin) methocarbamol 750 mg tablet 750 mg PO TID 05/04/25 05/04/25 History Laboratory Tests 05/11/25 05/11/25 05/11/25 14:01 16:59 20:13 WBC RBC Hgb Hct MCV MCH MCHC RDW Plt Count MPV ESR Sodium Potassium Chloride Carbon Dioxide Anion Gap BUN Creatinine Estim Creat Clear Calc Estimated GFR Glucose POC Capillary Glucose 168 H mg/dl 150 H mg/dl (65-105) (65-105) Calcium Phosphorus C-Reactive Protein Albumin Nasal MRSA (PCR) Not detected (NOT DETECTE) 05/12/25 05/12/25 05/12/25 05:43 07:49 11:46 WBC 6.7 K/mm3 (4.5-10.0) RBC 3.29 L M/mm3 (4.2-5.4) Hgb 10.7 L g/dL (12.0-15.0) Hct 33.0 L % (37.0-47.0) MCV 100.3 H fl (80-100) MCH 32.5 pg (26-34) MCHC 32.4 g/dl (32-36) RDW 15.0 H % (11.5-14.5) Plt Count 224 k/mm3 (150-375) MPV 10.0 fl (7.4-10.4) ESR 101 H mm/hr (0-20) Sodium 134 L mmol/L (137-145) Potassium 3.2 L mmol/L (3.4-5.0) Chloride 101 mmol/L (98-107) Carbon Dioxide 24 mmol/L (22-30) Anion Gap 9 mmol/L (4-12) BUN 33 H mg/dL (7-17) Creatinine 1.12 H mg/dL (0.7-1.0) Estim Creat Clear Calc 37 ml/min Estimated GFR 48 L (59 - ) Glucose 114 H mg/dL (65-110) POC Capillary Glucose 111 H mg/dl 100 mg/dl (65-105) (65-105) Calcium 9.2 mg/dL (8.4-10.2) Phosphorus 4.5 mg/dL (2.5-4.5) C-Reactive Protein 5.4 H mg/dL (<1.0) Albumin 3.0 L g/dL (3.5-5.1) Nasal MRSA (PCR) Patient hx anesthesia problems: none Family hx anesthesia problems: none Results Review: All pre-operative results and documents have been reviewed as part of the pre-operative evaluation. [facility] Past Medical History Medical History Alcoholic cirrhosis of liver Chronic venous insufficiency of lower extremity Stage 3a chronic kidney disease Shingles ANTHONY (obstructive sleep apnea) Osteoporosis Gram-negative bacteremia Anemia of chronic disease Ascites Obesity (BMI 30-39.9) Hyperlipidemia, unspecified Carotid artery disease Alcohol abuse Osteoarthritis Diastolic dysfunction ECHO 10/2023: normal LV systolic function, estimated EF of 60-65%, abnormal diastolic dysfunction. Left-sided carotid artery disease 01/2021: 50 to 69% stenosis of the left ICA. Orthostatic hypotension on midodrine, chronic hypotension, previously caused syncope and frequent falls and subsequent fractures. Insulin dependent type 2 diabetes mellitus A1C 5.1% 08/2024 Chronic hyponatremia Eczema Periprosthetic fracture of femur following total replacement of hip (01/2020) Non operative treatment. GERD (gastroesophageal reflux disease) Surgical History Surgical History Status post open reduction with internal fixation of fracture (05/30/21) ORIF of comminuted intra-articular fracture of the distal left femur, done at [facility]. History of hysterectomy (2005) Due to uterine fibroids and endometriosis. History of bilateral cataract extraction History of lumbar surgery (2005) L1-L3. History of right hip replacement (2005) Per Dr. Curiel in [place]. Family History Family History Father Heart attack Mother Diabetes mellitus COPD (chronic obstructive pulmonary disease) Hypertension Afib Sibling Amputation above knee Diabetes mellitus Father , At age 50 Acute myocardial infarction Sibling , At age 50 Pancreatic cancer Social History Social History Social History: The patient lives in her own home in [place]. She has been twice, her 1st and she has since her 2nd . She has no children. She moved to this area within the last couple of years from [place] to be close to her 3 remaining siblings. 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 She has recently retired.She smoked up to 2 packs of cigarettes a day before quitting in 2005. She drinks 2 mixed drinks a day, each containing a shot of vodka which equals out to about 1 L to 1.7 L of vodka a week. She denies illicit substance use. Surrogate decision maker: Miladys Moserfrederick, sister. Code status: Full code. Smoking packs per day: 2 Smoking cigarettes per day: 40.0 Years smoked: 30 Smoking pack-years: 60.00 Smoking status: Never smoker Smokeless tobacco user: chewing tobacco Second hand tobacco smoke exposure: No Alcohol intake: never Drinks per week: 14 Substance use: never Substance use type: does not use Do You Feel Safe in your Home?: Yes Lack of Transportation: No Lack of Food: Never True Current Housing: I Have Housing Concerned About Future Housing: No Difficulty Paying Gas/Electric Bills: No Difficulty Paying for Meds: No Currently Unemployed: No Education: Decline to Answer Difficulty w/ Childcare or Family Care: No Living arrangements: alone Occupation/Education: retired Gender identity (if verbalized by the patient): Female Sexual Orientation (if Verbalized by the Patient): Straight or Heterosexual Spiritual care concerns: No Anes - Eval Final PreProcedure Day of Procedure 05/12/25 13:18 Patient weight: normal Heart: regular rate and rhythm Lungs: decreased breath sounds Airway: Mallampati scale class II Neurological: alert and oriented Last oral intake: >/= 8 hours ASA classification: IV Emergent: no Anesthetic plan: proceed Anesthesia type and monitoring: general ETT and standard monitoring Results Review: All pre-operative results and documents have been reviewed as part of the pre- operative evaluation. Informed Consent: The patient's anesthetic plan and its attendant risks and benefits were discussed with the patient/family/POA. Questions were solicited and answers provided to the satisfaction of the patient/family/POA.
[2025-05-12] MEDS: LACTATED RINGERS 1,000 ML 30 ML IV CONT (13:30)
--- NOTE | 2025-05-12 13:39 | WPDHPUPDATE1 ---
History and Physical Update Update Date/Time: 05/12/25 13:39 History and Physical has been reviewed, including an updated exam of the patient. There are NO changes in the patient's condition. Risks, benefits, and alternatives have been discussed and questions answered. Patient agrees to proceed with procedure.
[2025-05-12] MEDS: BUPIVACAINE/EPINEPHRINE 0.5% 50 ML VIAL 10 ML INFILTRATE (14:30)
--- NOTE | 2025-05-12 14:46 | W.PM.PROC2 ---
Procedure Note - Detailed Date of Procedure 05/12/25 Pre-op Diagnosis Left buttock abscess Post-op Diagnosis Other (Left buttock abscess, left sacral decubitus ulcer) Procedure Performed 1. Incision and drainage of complicated left buttock abscess 2. Sharp excisional debridement of sacral decubitus ulcer including skin and subcutaneous fat measuring 4 cm x 3 cm Surgeon Lavelle Iglesias, DO Anesthesia General and Local (0.5% bupivacaine) Indications This is a 70-year-old woman who presented with a left buttock wound that was swollen and draining pus. She has had chronic decubitus ulcers on her left buttock region and recently this became swollen and painful. She was found to have an open wound draining pus that was tracking underneath the skin. Discussions were made with the patient about treatment options and decision was made to proceed with incision and drainage of left buttock abscess. Findings Incision and drainage of the left buttock abscess was performed. The patient had a left buttock abscess with multiple loculations. The incision was opened directly over the abscess and there did appear to be some necrotic tissue within this area that was related to the sacral decubitus ulcer overlying this region as well. The necrotic tissue was sharply debrided using a 15 blade scalpel. Necrotic tissue was excised back to healthy appearing tissue. The dimensions of the wound measured 4 cm x 3 cm and included skin and subcutaneous fat. The wound was then irrigated with sterile saline and then packed with half-inch iodoform gauze. Description of Procedure Procedure as well as risks, benefits, and alternatives were discussed with the patient. Written consent was obtained and placed in chart prior to procedure. Patient was brought back to surgical suite. She was placed supine on operating table. Time-out was done to confirm patient and procedure. She was then intubated by the anesthesia department. She was then repositioned 2 right lateral decubitus position on the operating table. Her buttock region was prepped and draped in sterile fashion using Betadine prep. 0.5% bupivacaine was infiltrated locally around the area of the draining abscess. A 4 cm incision was then made directly over the area of fluctuance in the left buttock region using a 15 blade scalpel. The abscess cavity was entered and purulence fluid was drained. Cultures were taken with a culture swab. The loculations were then broken up with a curved hemostat and blunt dissection with my finger. The wound bed was then inspected and there appeared to be some necrotic tissue within the wound as well. The necrotic tissue was excised using a 15 blade scalpel. This included skin and subcutaneous fat. The wound was then irrigated with sterile saline. Hemostasis was achieved with electrocautery. No further abnormalities were noted. The wound was then packed with half-inch iodoform gauze. 4 x 4 gauze, ABD pad, and tape were then applied. The patient was then awakened from anesthesia, extubated, and transferred to recovery. Estimated Blood Loss 10 Urine Output 0 Packing Yes (Half-inch iodoform gauze) Complications No immediate complications Condition Stable Disposition Floor [facility] Billing Surgery - Charge Forward: Surgery Billing
[2025-05-12] MEDS: cefTRIAXone 2 GM in SODIUM CHLORIDE 0.9% IV 100 ML 200 ML IVPB (14:55)
[2025-05-12] MEDS: FOLIC ACID 0.4 MG TABLET 0.8 MG PO (16:41)
[2025-05-12] MEDS: ATORVASTATIN 10 MG TABLET PO (16:41)
[2025-05-12] MEDS: DOXYCYCLINE HYCLATE 100 MG TABLET PO ×2 (16:41→21:02)
[2025-05-12] MEDS: ACETAMINOPHEN 500 MG TABLET 1000 MG PO (16:41)
[2025-05-12] MEDS: EMPAGLIFLOZIN 10 MG TABLET PO (16:41)
[2025-05-12] MEDS: POTASSIUM CHLORIDE 10 MEQ ER TABLET PO (16:41)
[2025-05-12] MEDS: THIAMINE HCL 100 MG TABLET PO (16:42)
[2025-05-12] MEDS: EUCERIN CREAM 454 GM JAR 1 APPLIC TOPICAL (16:42)
[2025-05-12] MEDS: THERAPEUTIC MULTIVITAMINS/MINERALS TAB (*BKC) 1 TABLET PO (16:42)
[2025-05-12] MEDS: POTASSIUM CHLORIDE 20 MEQ ER TABLET 40 MEQ PO (16:42)
[2025-05-12] MEDS: SODIUM CHLORIDE 1 GM TABLET PO (16:42)
[2025-05-12] MEDS: FERROUS SULFATE 325 MG TABLET DR PO (16:42)
[2025-05-12] MEDS: ASCORBIC ACID 500 MG TABLET PO (16:42)
[2025-05-12] MEDS: HYDROmorphone HCL INJ (*CRX) 2 MG/ML VIAL 0.5 MG IV PUSH (20:58)
[2025-05-12] MEDS: INSULIN GLARGINE (*BKC) 100 UNITS/ML 10 UNITS SUB-Q (22:48)
[2025-05-13] VITALS (7 sets, daily range): BP systolic 93–123; BP diastolic 41–65; PULSE 96–99; RESP 16–18; TEMP 36.4–37.7; O2SAT 95–100
[2025-05-13 06:47] LABS: Hematocrit 33.5 % (37.0-47.0); Hemoglobin 10.6 g/dL (12.0-15.0); Immature Granulocyte Percent A 0.7 % (0-0.5); Lymphocytes Absolute Auto 0.56 K/mm3 (0.9-3.2); Mean Corpuscular HGB Conc 31.6 g/dl (32-36); Mean Corpuscular Hemoglobin 32.3 pg (26-34); Mean Corpuscular Volume 102.1 fl (80-100); Nucleated Red Blood Cells Absolute Auto 0.000 K/mm3 (0.0-0.012); Nucleated Red Blood Cells Perc 0.0 % (0.0-0.2); Platelet Count Result 239 k/mm3 (150-375); Red Blood Count 3.28 M/mm3 (4.2-5.4); White Blood Count 5.6 K/mm3 (4.5-10.0)
[2025-05-13 07:06] LABS: Anion Gap 10 mmol/L (4-12); Blood Urea Nitrogen 35 mg/dL (7-17); Calcium 8.9 mg/dL (8.4-10.2); Carbon Dioxide 24 mmol/L (22-30); Chloride 100 mmol/L (98-107); Estimated CRCL calculation 37 ml/min; Estimated Glomerular Filt Rate 49; Glucose 90 mg/dL (65-110); Potassium 3.4 mmol/L (3.4-5.0); Sodium 134 mmol/L (137-145)
[2025-05-13 07:11] LABS: CRP 5.6 mg/dL (<1.0)
--- NOTE | 2025-05-13 07:24 | P.PNIM_ITS ---
Progress Note: A&P Assessment and Plan (1) Infected wound: Code(s): T14.8XXA - Other injury of unspecified body region, initial encounter; L08.9 - Local infection of the skin and subcutaneous tissue, unspecified Status: Acute Assessment and Plan: -Sacral wound noted to be draining yellow/brown purulent drainage - XR sacrum no obvious signs of osteomyelitis - WBC 10.7, ESR 101, afebrile -Sent cultures 05/11 from sacrum and right heel. Surgical cultures also pending--follow results - s/p I&D of buttock abscess and debridement of sacral decubitus ulcer 05/12/25 - on Rocephin and Bactrim per ID pharmacist recommendations, adjust per cultures -Wound care following, continue to monitor (2) Non-healing wound of right heel: Code(s): S91.301A - Unspecified open wound, right foot, initial encounter Status: Acute Assessment and Plan: - XR R heel with no osteo -wound appears clean and dry. -SONIA notable for PAD. - continue wound care - needs outpatient follow-up with vascular surgery. (3) Acute on chronic back pain: Code(s): M54.9 - Dorsalgia, unspecified; G89.29 - Other chronic pain Status: Acute Assessment and Plan: -CT thoracic/lumbar, 05/04: Acute/subacute mild compression fractures at T9, T10, and T12. No acute fracture or traumatic malalignment detected in the lumbar spine. -Uses a wheelchair at baseline. no precipitating trauma. unable to care for herself independently in current state prompting attempt for placement from the ED to acute rehab, unsuccessful. admitted for pain control, PT/OT and placement. - consulted neuro surgery, placed a brace and recommended outpatient follow-up 6 weeks. Avoid bending/twisting and no heavy lifting. -Scheduled Tylenol 650 TID, holding gabapentin 300mg hs. Continue oxycodone PRN, Dilaudid PRN for breakthrough pain. Wean IV narcotics as able. -Bowel regimen with opiates - PT/OT recommended SNF, but patient hoping to return home with [facility]. Care coordination following. (4) Pulmonary nodule: Code(s): R91.1 - Solitary pulmonary nodule Status: Acute Assessment and Plan: - CT showed 5 mm groundglass and 15 mm mixed groundglass/solid right upper lobe pulmonary nodules that have increased in size slightly since the October comparison CT. Recommend biopsy or PET/CT. -Discussed biopsy with radiologist and recommended biopsy over PET scan. Will plan to pursue as outpatient. (5) Chronic hyponatremia: Code(s): E87.1 - Hypo-osmolality and hyponatremia Status: Chronic Assessment and Plan: - chronic. Likely secondary to fluid restriction and diuretic - Na zeke 124, now improved to 134 - continue NaCl tabs, 1800 cc fluid restriction - monitor BMP - nephrology following (6) Diabetes mellitus: Qualifiers: Diabetes mellitus complication status: without complication Diabetes mellitus prison insulin use: with terminal makeup operator use Diabetes mellitus type: type 2 Qualified Code(s): E11.9 - Type 2 diabetes mellitus without complications; Z79.4 - skilled nursing (current) use of insulin Code(s): E11.9 - Type 2 diabetes mellitus without complications Status: Chronic Assessment and Plan: - hypoglycemia protocol - POC blood glucose ACHS - home medication: Jardiance, Lantus 15u SQ, Lispro 3u TID - correct regimen ordered - high dose TIDWM - A1C 4.6% on 03/25/2025 (7) Chronic kidney disease, stage 3: Qualifiers: Chronic kidney disease stage 3 subtype: stage 3b (GFR 30-44) Qualified Code(s): N18.32 - Chronic kidney disease, stage 3b Code(s): N18.30 - Chronic kidney disease, stage 3 unspecified Status: Chronic Assessment and Plan: - baseline creatinine: 1.5-2.0. Has been over 2 previously. - creatinine 1.15, BUN 24, GFR 24 upon initial evaluation. Up to 1.5, diuretics held temporarily and Cr improved -Had normal kidneys on US earlier this year, UA negative - trend renal function - trend electrolytes, correct as needed - resumed Bumex 05/13. Monitor renal function. (8) Chronic anemia: Code(s): D64.9 - Anemia, unspecified Status: Chronic Assessment and Plan: - admit Hgb 11.8, previously 8.0 on 02/07 - secondary to chronic disease - transfuse if <7 - monitor (9) Alcoholism: Code(s): F10.20 - Alcohol dependence, uncomplicated Status: Chronic Assessment and Plan: -History of alcohol abuse, still has occasional use. - had signs of mild withdrawal s/p librium tap (10) Double vision: Code(s): H53.2 - Diplopia Status: Resolved Assessment and Plan: -RESOLVED -Binocular, also associated with tremors. Both symptoms resolved completely on exam 05/08 S/P Thiamine 500mg IV q8h x3. Also treated possible alcohol withdrawal, ativan 0.25 x1, scheduled librium 10 TID 05/08 -Head CT no acute findings. MRI brain unable to be completed due to low back pain (11) Vomiting: Code(s): R11.10 - Vomiting, unspecified Status: Resolved Assessment and Plan: -Lars becerra - resolved (12) Hypokalemia: Code(s): E87.6 - Hypokalemia Status: Acute Assessment and Plan: -resolved with PO replacement (13) Urinary retention: Code(s): R33.9 - Retention of urine, unspecified Status: Acute Assessment and Plan: -patient had episode of urinary retention requiring Samuel catheter placement -continue Samuel given sacral wound, recommend voiding trial soon (14) Alcoholic cirrhosis: Code(s): K70.30 - Alcoholic cirrhosis of liver without ascites Status: Acute Assessment and Plan: - CT A/P showed moderate gastric distention which may represent gastric varices, cirrhosis with portal hypertension. Also showed possible colitis. - GI consulted, planning for outpatient Fibroscan. No concern for colitis given lack of abdominal pain or diarrhea. Subjective Date/time seen: 05/13/25 07:24 Interval history: Patient is a 70 yo female with history of diabetes, CKD, alcohol abuse, cirrhosis who presented to the ER with back pain. Patient seen and examined at bedside. Having some pain post-op, but doing okay with pain medicine. Review of Systems Review of Systems: All systems reviewed & are unremarkable except as noted in HPI and below Exam Narrative: General: NAD Eyes: EOMI ENT: neck supple Cardiovascular: Regular rate and rhythm Respiratory: Clear to auscultation, respirations even and unlabored on RA Gastrointestinal: Soft, non tender Genitourinary: no suprapubic tenderness Musculoskeletal: left buttock wound clean with bloody drainage. Chronic venous stasis skin changes. Skin: warm, dry Neuro: Alert. Psych: Mood appropriate Objective Data Vital Signs Vital Signs: Vital Signs - 24 hr 05/12/25 08:00 05/12/25 13:34 05/12/25 14:35 Temperature 97.1 F L 97.2 F L Pulse Rate 99 98 Respiratory Rate 16 12 Blood Pressure 121/50 L 105/48 L Pulse Oximetry 100 100 Oxygen Delivery Room Air Room Air Simple Face Mask Oxygen Flow Rate 8 05/12/25 14:50 05/12/25 15:05 05/12/25 15:20 Temperature Pulse Rate 98 98 98 Respiratory Rate 12 12 20 Blood Pressure 107/52 L 105/50 L 98/53 L Pulse Oximetry 99 98 100 Oxygen Delivery Room Air Room Air Room Air Oxygen Flow Rate 05/12/25 15:35 05/12/25 15:41 05/12/25 15:56 Temperature 97.8 F 97.8 F Pulse Rate 99 99 100 Respiratory Rate 18 18 18 Blood Pressure 103/54 L 103/45 L 98/45 L Pulse Oximetry 100 100 100 Oxygen Delivery Room Air Oxygen Flow Rate 05/12/25 16:26 05/12/25 17:26 05/12/25 21:22 Temperature 97.8 F 97.8 F 99.0 F Pulse Rate 100 100 100 Respiratory Rate 18 18 16 Blood Pressure 100/49 L 110/51 L 100/48 L Pulse Oximetry 99 99 96 Oxygen Delivery Oxygen Flow Rate 05/13/25 05:26 Temperature 99.8 F H Pulse Rate 96 Respiratory Rate 16 Blood Pressure 123/65 Pulse Oximetry 96 Oxygen Delivery Oxygen Flow Rate Intake/Output Intake/Output: Intake & Output 05/10/25 05/11/25 05/12/25 05/13/25 23:59 23:59 23:59 23:59 Intake Total 1020 1270 630 444 Output Total 2300 1900 850 650 [facility] -1280 -630 -220 -206 Meds/Results Medications: Active Medications Generic Name Dose Route Start Last Admin Trade Name Freq PRN Reason Stop Dose Admin Acetaminophen 1,000 mg 05/05/25 17:00 05/12/25 16:41 Acetaminophen 500 Mg Tablet PO 1,000 mg TID NEIL Administration Ascorbic Acid 500 mg 05/05/25 09:00 05/12/25 16:42 Ascorbic Acid 500 Mg Tablet PO 500 mg DAILY NEIL Administration Atorvastatin Calcium 10 mg 05/05/25 09:00 05/12/25 16:41 Atorvastatin 10 Mg Tablet PO 10 mg QAM NEIL Administration Bumetanide 1 mg 05/04/25 17:00 05/06/25 08:22 Bumetanide 1 Mg Tablet PO 1 mg BID NEIL Administration Calcium Carbonate 200 mg 05/11/25 15:11 05/11/25 15:18 Calcium Carbonate (Tums) 500 Mg (200 Mg Elemental) PO 200 mg Q6H PRN Administration Indigestion Dextrose 12.5 gm 05/04/25 16:57 Dextrose 50% 25 Gm/50 Ml Syringe IV PUSH PRN PRN Hypoglycemia Protocol Doxycycline Hyclate 100 mg 05/11/25 21:00 05/12/25 21:02 Doxycycline Hyclate 100 Mg Tablet PO 100 mg Q12HR NEIL Administration Empagliflozin 10 mg 05/05/25 09:00 05/12/25 16:41 Empagliflozin 10 Mg Tablet PO 10 mg DAILY NEIL Administration Ferrous Sulfate 325 mg 05/05/25 09:00 05/12/25 16:42 Ferrous Sulfate [address] PO 325 mg DAILY NEIL Administration Fluticasone Propionate 1 spray 05/04/25 16:59 Fluticasone Propionate 0.05% Na Spr 16 Gm Btl (*Bkc) NASAL DAILY PRN allergies Folic Acid 0.8 mg 05/05/25 09:00 05/12/25 16:41 Folic Acid 0.4 Mg Tablet PO 0.8 mg DAILY NEIL Administration Gabapentin 300 mg 05/05/25 21:00 05/05/25 21:28 Gabapentin 300 Mg Capsule PO 300 mg HS NEIL Administration Glucagon 1 mg 05/04/25 16:57 Glucagon For Inj 1 Mg Vial IM PRN PRN Hypoglycemia Protocol Glucose 15 gm 05/04/25 16:57 Glucose Oral Gel 15 Gm Of Glucse In 37.5 Gm Tube PO PRN PRN Hypoglycemia Protocol Heparin Sodium (Porcine) 5,000 units 05/13/25 21:00 Heparin Sodium 5,000 Units/Ml Vial SUB-Q Q12HR NEIL Hydromorphone HCl 0.5 mg 05/05/25 13:45 05/12/25 20:58 Hydromorphone Hcl Inj (*Crx) 2 Mg/Ml Vial IV PUSH 0.5 mg Q3H PRN Administration Breakthrough Pain Ceftriaxone Sodium 2 gm/ 100 mls @ 200 mls/hr 05/11/25 14:00 05/12/25 15:17 Sodium Chloride IVPB Infused Q24H [facility] Infusion Insulin Aspart 4 - 8 units 05/04/25 17:00 05/12/25 16:43 Insulin Aspart (*Bkc) 100 Units/Ml SUB-Q Not Given TIDWM [facility] Protocol Insulin Aspart 3 units 05/04/25 17:20 05/12/25 16:43 Insulin Aspart (*Bkc) 100 Units/Ml SUB-Q Not Given ACINSULIN [facility] Insulin Glargine 10 units 05/08/25 21:00 05/12/25 22:48 Insulin Glargine (*Bkc) 100 Units/Ml SUB-Q 10 units HS [facility] Administration Lidocaine 1 patch 05/05/25 09:00 05/12/25 09:23 Lidocaine 5% Patch TOPICAL Not Given DAILY NEIL Methocarbamol 750 mg 05/04/25 17:00 05/06/25 17:12 Methocarbamol 750 Mg Tablet PO 750 mg TID NEIL Administration Metronidazole 500 mg 05/11/25 14:00 05/13/25 05:37 Metronidazole 500 Mg Tablet PO 500 mg Q8HR NEIL Administration Multi-Ingred Cream/Lotion/Oil/Oint 1 applic 05/04/25 17:23 Eucerin Cream 454 Gm Jar TOPICAL PRN PRN DRESSING CHANGES Multi-Ingred Cream/Lotion/Oil/Oint 1 applic 05/05/25 09:00 05/12/25 16:42 Eucerin Cream 454 Gm Jar TOPICAL 1 applic DAILY NEIL Administration Multivitamins/Calcium 1 tablet 05/05/25 09:00 05/12/25 16:42 Therapeutic Multivitamins/Minerals Tab (*Bkc) PO 1 tablet DAILY NEIL Administration Ondansetron HCl 4 mg 05/06/25 09:43 05/06/25 17:22 Ondansetron Inj 4 Mg/2 Ml Vial IV PUSH 4 mg Q4H PRN Administration Nausea And Vomiting Oxycodone HCl 2.5 mg 05/05/25 13:45 05/12/25 16:50 Oxycodone Hcl (*Crx) 2.5 Mg Tab Ir PO 2.5 mg Q4H PRN Administration Moderate Pain (4-6) Oxycodone HCl 5 mg 05/05/25 13:53 05/12/25 16:50 Oxycodone Hcl (*Crx) 5 Mg Tab Ir PO 5 mg Q4H PRN Administration Severe Pain Polyethylene Glycol 17 gm 05/13/25 09:00 Polyethylene Glycol 3350 17 Gm Powd.Pack PO DAILY NEIL Potassium Chloride 10 meq 05/05/25 09:00 05/12/25 16:41 Potassium Chloride 10 Meq Er Tablet PO 10 meq DAILY NEIL Administration Senna/Docusate Sodium 1 tab 05/05/25 21:00 05/12/25 21:02 Senna/Docusate Sodium Tablet PO Not Given HS NEIL Sodium Chloride 1 gm 05/06/25 09:00 05/12/25 16:42 Sodium Chloride 1 Gm Tablet PO 1 gm BID NEIL Administration Thiamine HCl 100 mg 05/05/25 09:00 05/12/25 16:42 Thiamine Hcl 100 Mg Tablet PO 100 mg QAM NEIL Administration Radiology Results: ITS Impressions Thoracic/Lumbar Spine CT 05/04/25 14:04 IMPRESSION: Small right pleural effusion. Acute/subacute mild compression fractures at T9, T10, and T12. 5 mm groundglass and 15 mm mixed groundglass/solid right upper lobe pulmonary nodules that have increased in size slightly since the October comparison CT. Recommend biopsy or PET/CT. No acute fracture or traumatic malalignment detected in the lumbar spine. Abdomen X-Ray 05/06/25 19:50 IMPRESSION: Suggestion of gastric fold thickening as can be seen with gastritis or varices. Suggestion of small bowel wall thickening, may reflect enteritis. Head CT 05/06/25 19:54 Impression: No acute intracranial hemorrhage or suspicious mass effect. Abdomen/Pelvis CT 05/06/25 20:40 IMPRESSION: Small volume pericardial fluid versus pericardial thickening. Small right pleural effusion with adjacent atelectasis. Infection not excluded. Moderate gastric distention with prominent folds and may represent gastric varices. Cirrhosis with portal hypertension. Mild gastric distention with prominent gastric folds that may represent gastric varices. Proximal small bowel wall thickening as can be seen with enteritis. Segmental wall thickening in the transverse and sigmoid colon, as can be seen with infectious, inflammatory, or ischemic colitis. Possible mild fecal impaction and constipation. Distended urinary bladder, correlate for urinary retention. Progressive mild-moderate multilevel compression fractures in the thoracic and lumbar spine. Brain MRI 05/07/25 13:49 IMPRESSION: 1. Severely limited study which was terminated prematurely at patient request due to back pain following only the sagittal T1-weighted imaging. Unable to assess for either acute infarction or T2-weighted signal changes and significantly decrease sensitivity for intracranial hemorrhage which was not observed. 2. Mild age-appropriate diffuse volume loss. Ankle Brachial Index 05/09/25 09:11 IMPRESSION: 1. Diminished bilateral toe brachial indices consistent with peripheral arterial disease. Heel X-Ray 05/11/25 18:05 IMPRESSION: No acute osseous finding in the right heel. Sacrum and Coccyx X-Ray 05/11/25 18:06 IMPRESSION: Exam limited by rotation in the lateral view and osteopenia. No definite fracture or erosion to suggest osteomyelitis. If clinical suspicion is high recommend CT of the pelvis with contrast for further evaluation. Labs Labs: Laboratory Results - last 24 hr 05/12/25 05/12/25 05/12/25 07:49 11:46 14:53 WBC RBC Hgb Hct MCV MCH MCHC RDW Plt Count MPV Immature Gran % (Auto) Neut % (Auto) Lymph % (Auto) [place] % (Auto) Eos % (Auto) Baso % (Auto) Lymph # (Auto) [place] # (Auto) Eos # (Auto) Baso # (Auto) Abs Immat Gran (auto) Absolute Neuts (auto) Absolute Nucleated RBC Nucleated RBC % Sodium Potassium Chloride Carbon Dioxide Anion Gap BUN Creatinine Estim Creat Clear Calc Estimated GFR Glucose POC Capillary Glucose 111 H 100 90 Calcium C-Reactive Protein 05/12/25 05/12/25 05/13/25 16:22 19:43 05:55 WBC 5.6 RBC 3.28 L Hgb 10.6 L Hct 33.5 L MCV 102.1 H MCH 32.3 MCHC 31.6 L RDW 14.9 H Plt Count 239 MPV 10.1 Immature Gran % (Auto) 0.7 H Neut % (Auto) 63.1 Lymph % (Auto) 10.0 L [place] % (Auto) 13.4 H Eos % (Auto) 11.6 H Baso % (Auto) 1.2 Lymph # (Auto) 0.56 L [place] # (Auto) 0.8 H Eos # (Auto) 0.7 H Baso # (Auto) 0.1 Abs Immat Gran (auto) 0.04 H Absolute Neuts (auto) 3.5 Absolute Nucleated RBC 0.000 Nucleated RBC % 0.0 Sodium 134 L Potassium 3.4 Chloride 100 Carbon Dioxide 24 Anion Gap 10 BUN 35 H Creatinine 1.10 H Estim Creat Clear Calc 37 Estimated GFR 49 L Glucose 90 POC Capillary Glucose 91 165 H Calcium 8.9 C-Reactive Protein 5.6 H
[2025-05-13] MEDS: oxyCODONE HCL (*CRX) 5 MG TAB IR PO ×3 (08:31→16:57)
[2025-05-13] MEDS: FOLIC ACID 0.4 MG TABLET 0.8 MG PO (08:33)
[2025-05-13] MEDS: ATORVASTATIN 10 MG TABLET PO (08:34)
[2025-05-13] MEDS: EMPAGLIFLOZIN 10 MG TABLET PO (08:34)
[2025-05-13] MEDS: ASCORBIC ACID 500 MG TABLET PO (08:34)
[2025-05-13] MEDS: FERROUS SULFATE 325 MG TABLET DR PO (08:34)
[2025-05-13] MEDS: THIAMINE HCL 100 MG TABLET PO (08:34)
[2025-05-13] MEDS: POTASSIUM CHLORIDE 10 MEQ ER TABLET PO (08:34)
[2025-05-13] MEDS: SODIUM CHLORIDE 1 GM TABLET PO ×2 (08:34→16:58)
[2025-05-13] MEDS: THERAPEUTIC MULTIVITAMINS/MINERALS TAB (*BKC) 1 TABLET PO (08:34)
[2025-05-13] MEDS: DOXYCYCLINE HYCLATE 100 MG TABLET PO (08:34)
[2025-05-13] MEDS: ACETAMINOPHEN 500 MG TABLET 1000 MG PO ×3 (08:34→16:57)
[2025-05-13] MEDS: EUCERIN CREAM 454 GM JAR 1 APPLIC TOPICAL (08:45)
--- NOTE | 2025-05-13 08:45 | WPDANESPN ---
Anes - Prog Note Post-Op Date/Time: 05/13/25 08:45 Cardiovascular status: normal Respiratory status: normal Airway patency: baseline Mental status: baseline Post-Op hydration status: normal Vital Signs: Last Vital Signs Temp 37.7 C H 05/13/25 05:26 Pulse 96 05/13/25 05:26 Resp 16 05/13/25 05:26 BP 123/65 05/13/25 05:26 Pulse Ox 96 05/13/25 05:26 O2 Del Method Room Air 05/12/25 15:35 O2 Flow Rate 8 05/12/25 14:35 FiO2 21 05/10/25 20:00 Pain Score (VAS): 2 I/O: Intake & Output 05/12/25 05/13/25 05/13/25 23:59 07:59 15:59 Intake Total 240 444 Output Total 650 250 Balance 240 -206 -250 Laboratory Tests 05/13/25 05:55 05/13/25 05:55 05/12/25 05/12/25 05/12/25 11:46 14:53 16:22 WBC RBC Hgb Hct MCV MCH MCHC RDW Plt Count MPV Immature Gran % (Auto) Neut % (Auto) Lymph % (Auto) [place] % (Auto) Eos % (Auto) Baso % (Auto) Lymph # (Auto) [place] # (Auto) Eos # (Auto) Baso # (Auto) Abs Immat Gran (auto) Absolute Neuts (auto) Absolute Nucleated RBC Nucleated RBC % Sodium Potassium Chloride Carbon Dioxide Anion Gap BUN Creatinine Estim Creat Clear Calc Estimated GFR Glucose POC Capillary Glucose 100 90 91 Calcium C-Reactive Protein 05/12/25 05/13/25 05/13/25 19:43 05:55 07:51 WBC 5.6 RBC 3.28 L Hgb 10.6 L Hct 33.5 L MCV 102.1 H MCH 32.3 MCHC 31.6 L RDW 14.9 H Plt Count 239 MPV 10.1 Immature Gran % (Auto) 0.7 H Neut % (Auto) 63.1 Lymph % (Auto) 10.0 L [place] % (Auto) 13.4 H Eos % (Auto) 11.6 H Baso % (Auto) 1.2 Lymph # (Auto) 0.56 L [place] # (Auto) 0.8 H Eos # (Auto) 0.7 H Baso # (Auto) 0.1 Abs Immat Gran (auto) 0.04 H Absolute Neuts (auto) 3.5 Absolute Nucleated RBC 0.000 Nucleated RBC % 0.0 Sodium 134 L Potassium 3.4 Chloride 100 Carbon Dioxide 24 Anion Gap 10 BUN 35 H Creatinine 1.10 H Estim Creat Clear Calc 37 Estimated GFR 49 L Glucose 90 POC Capillary Glucose 165 H 85 Calcium 8.9 C-Reactive Protein 5.6 H Patient Feedback: Patient satisfied with anesthetic care.
--- NOTE | 2025-05-13 10:57 | P.PNNP_ITS ---
Progress Note: A&P Assessment and Plan (1) Hyponatremia: Code(s): E87.1 - Hypo-osmolality and hyponatremia Status: Acute Assessment and Plan: * stable if not improving * acute on chronic * chronicity from CKD, CHF, diuretics therapy and liver disease * acute from increased fluid intake + pain + narcotics + urinary retention * outpatient therapy = low dose loop diuretics, salt tabs, and fluid restriction (and this usually keeps her stable) * on bumex for swelling/edema and salt tablets to keep the bumex from dropping the sodium along with fluid restriction * continue current therapy * follow trend of sodium levels (2) Chronic kidney disease, stage 3: Qualifiers: Chronic kidney disease stage 3 subtype: stage 3b (GFR 30-44) Qualified Code(s): N18.32 - Chronic kidney disease, stage 3b Code(s): N18.30 - Chronic kidney disease, stage 3 unspecified Status: Chronic Assessment and Plan: * baseline creatinine runs ~ 1.3 - 1.7mg/dl * this causes her to fluctuate between CKD stage 3A and stage 3B * creatinine has been higher in the due to more aggresive diuresis * presumably related to her CHF, previous HTN (not an issue now), DM, vascular disease, liver disease and need for chronic diuretic therapy * her creatinine better than baseline - suspect due to bedrest/immobilization and decreased muscle mass and associated drop in creatinine production (3) Decubitus ulcer of left buttock, stage 3: Code(s): L89.323 - Pressure ulcer of left buttock, stage 3 Status: Acute Assessment and Plan: * chronic * however, now complicated by acute infection and abscess * s/p I & D of complicated left buttock abscess * s/p sharp excisional debridement of left buttock decubitus ulcer * Surgery following * on antibiotics * follow culture data (4) Chronic anemia: Code(s): D64.9 - Anemia, unspecified Status: Chronic Assessment and Plan: * likely related to CKD and liver disease * follow trend of H/H * no need for ENMANUEL at this time (5) Acute on chronic back pain: Code(s): M54.9 - Dorsalgia, unspecified; G89.29 - Other chronic pain Status: Acute Assessment and Plan: * as noted by imagingL * CT thoracic/lumbar spine with acute/subacute mild compression fractures at T9, T10, and T12 with no acute fracture or traumatic malalignment detected in the lumbar spine * admitted for pain control * continue PT/OT * pain control * Neurosurgery recommendations noted (6) Alcoholic cirrhosis of liver: Qualifiers: Ascites presence: without ascites Qualified Code(s): K70.30 - Alcoholic cirrhosis of liver without ascites Code(s): K70.30 - Alcoholic cirrhosis of liver without ascites Status: Chronic Assessment and Plan: * follows with GI * LFTs normal * noted plans for further outpatient testing * continue supportive therapy (7) Decubitus ulcer of right heel, stage 3: Code(s): L89.613 - Pressure ulcer of right heel, stage 3 Status: Acute Assessment and Plan: * chronic and stable * complicated by evidence of peripheral arterial disease as noted by ABIs * no signs of infection * X-ray of right heel without evidence of osteomyelitis * local wound care * pressure offloading * no need for surgical intervention at this time (8) Pulmonary nodule: Code(s): R91.1 - Solitary pulmonary nodule Status: Acute Assessment and Plan: * recent CT scan with 5 mm groundglass and 15 mm mixed groundglass/solid right upper lobe pulmonary nodules that have increased in size slightly since the October comparison CT * had planned biopsy as inpatient but deferred due to #3 * likely plan outpatient follow-up (9) Urinary retention: Code(s): R33.9 - Retention of urine, unspecified Status: Acute Assessment and Plan: * noted on this admission (but has been noted on previous hospitalizations as well) * pleitez catheter in place * voiding trial prior to discharge (10) Diabetes mellitus: Qualifiers: Diabetes mellitus type: type 2 Diabetes mellitus alf insulin use: with oysterman use Diabetes mellitus complication status: without complication Qualified Code(s): E11.9 - Type 2 diabetes mellitus without complications; Z79.4 - intermediate (current) use of insulin Code(s): E11.9 - Type 2 diabetes mellitus without complications Status: Chronic Assessment and Plan: * follow accu-cheks * glycemic control per hospitalist Not much else to add -- will continue to follow intermittently L Subjective Date/time seen: 05/13/25 10:57 Interval history: Follow-up for chronic kidney disease and acute on chronic hyponatremia. S/P incision & drainage of left buttock abscess and debridement left buttock decubitus ulcer in the OR yesterday afternoon -- tolerated the procedure reasonably well; some post-procedure pain noted; no other acute issues or complaints voiced at the time of my visit. Exam 2 Narrative: General: elderly but WD/WN female in NAD Heart: normal S1 and S2; no rub Lungs: clear anteriorly; decreased at bases Abdomen: soft, mild distension, positive bowel sounds Extremities: no cyanosis or clubbing; trace - 1+ edema Skin: chronic skin changes present Objective Data Vital Signs Vital Signs: Vital Signs Temp Pulse Resp BP Pulse Ox O2 Del Method 05/13/25 09:26 97.7 F 97 18 105/53 L 100 05/13/25 08:30 95 Room Air 05/13/25 05:26 99.8 F H 96 16 123/65 96 05/12/25 21:22 99.0 F 100 16 100/48 L 96 Intake/Output Intake/Output: Intake & Output 05/10/25 05/11/25 05/12/25 05/13/25 23:59 23:59 23:59 23:59 Intake Total 1020 1270 630 924 Output Total 2300 4977 174 8117 Balance -1280 -630 -220 -326 Meds/Results Medications: Active Medications Generic Name Dose Route Start Last Admin Trade Name Freq PRN Reason Stop Dose Admin Acetaminophen 1,000 mg 05/05/25 17:00 05/13/25 16:57 Acetaminophen 500 Mg Tablet PO 1,000 mg TID NEIL Administration Ascorbic Acid 500 mg 05/05/25 09:00 05/13/25 08:34 Ascorbic Acid 500 Mg Tablet PO 500 mg DAILY NEIL Administration Atorvastatin Calcium 10 mg 05/05/25 09:00 05/13/25 08:34 Atorvastatin 10 Mg Tablet PO 10 mg QAM NEIL Administration Bumetanide 1 mg 05/04/25 17:00 05/06/25 08:22 Bumetanide 1 Mg Tablet PO 1 mg BID NEIL Administration Calcium Carbonate 200 mg 05/11/25 15:11 05/11/25 15:18 Calcium Carbonate (Tums) 500 Mg (200 Mg Elemental) PO 200 mg Q6H PRN Administration Indigestion Dextrose 12.5 gm 05/04/25 16:57 Dextrose 50% 25 Gm/50 Ml Syringe IV PUSH PRN PRN Hypoglycemia Protocol Empagliflozin 10 mg 05/05/25 09:00 05/13/25 08:34 Empagliflozin 10 Mg Tablet PO 10 mg DAILY NEIL Administration Ferrous Sulfate 325 mg 05/05/25 09:00 05/13/25 08:34 Ferrous Sulfate [address] PO 325 mg DAILY NEIL Administration Fluticasone Propionate 1 spray 05/04/25 16:59 Fluticasone Propionate 0.05% Na Spr 16 Gm Btl (*Bkc) NASAL DAILY PRN allergies Folic Acid 0.8 mg 05/05/25 09:00 05/13/25 08:33 Folic Acid 0.4 Mg Tablet PO 0.8 mg DAILY NEIL Administration Gabapentin 300 mg 05/05/25 21:00 05/05/25 21:28 Gabapentin 300 Mg Capsule PO 300 mg HS NEIL Administration Glucagon 1 mg 05/04/25 16:57 Glucagon For Inj 1 Mg Vial IM PRN PRN Hypoglycemia Protocol Glucose 15 gm 05/04/25 16:57 Glucose Oral Gel 15 Gm Of Glucse In 37.5 Gm Tube PO PRN PRN Hypoglycemia Protocol Heparin Sodium (Porcine) 5,000 units 05/13/25 21:00 Heparin Sodium 5,000 Units/Ml Vial SUB-Q Q12HR NEIL Hydromorphone HCl 0.5 mg 05/05/25 13:45 05/12/25 20:58 Hydromorphone Hcl Inj (*Crx) 2 Mg/Ml Vial IV PUSH 0.5 mg Q3H PRN Administration Breakthrough Pain Ceftriaxone Sodium 2 gm/ 100 mls @ 200 mls/hr 05/11/25 14:00 05/13/25 13:56 Sodium Chloride IVPB 200 mls/hr Q24H NEIL Administration Insulin Aspart 4 - 8 units 05/04/25 17:00 05/13/25 17:03 Insulin Aspart (*Bkc) 100 Units/Ml SUB-Q Not Given TIDWM NEIL Protocol Insulin Aspart 3 units 05/04/25 17:20 05/13/25 17:04 Insulin Aspart (*Bkc) 100 Units/Ml SUB-Q 3 units ACINSULIN NEIL Administration Insulin Glargine 10 units 05/08/25 21:00 05/12/25 22:48 Insulin Glargine (*Bkc) 100 Units/Ml SUB-Q 10 units HS NEIL Administration Lidocaine 1 patch 05/05/25 09:00 05/13/25 08:35 Lidocaine 5% Patch TOPICAL Not Given DAILY NEIL Methocarbamol 750 mg 05/04/25 17:00 05/06/25 17:12 Methocarbamol 750 Mg Tablet PO 750 mg TID NEIL Administration Multi-Ingred Cream/Lotion/Oil/Oint 1 applic 05/04/25 17:23 Eucerin Cream 454 Gm Jar TOPICAL PRN PRN DRESSING CHANGES Multi-Ingred Cream/Lotion/Oil/Oint 1 applic 05/05/25 09:00 05/13/25 08:45 Eucerin Cream 454 Gm Jar TOPICAL 1 applic DAILY NEIL Administration Multivitamins/Calcium 1 tablet 05/05/25 09:00 05/13/25 08:34 Therapeutic Multivitamins/Minerals Tab (*Bkc) PO 1 tablet DAILY NEIL Administration Ondansetron HCl 4 mg 05/06/25 09:43 05/06/25 17:22 Ondansetron Inj 4 Mg/2 Ml Vial IV PUSH 4 mg Q4H PRN Administration Nausea And Vomiting Oxycodone HCl 2.5 mg 05/05/25 13:45 05/12/25 16:50 Oxycodone Hcl (*Crx) 2.5 Mg Tab Ir PO 2.5 mg Q4H PRN Administration Moderate Pain (4-6) Oxycodone HCl 5 mg 05/05/25 13:53 05/13/25 16:57 Oxycodone Hcl (*Crx) 5 Mg Tab Ir PO 5 mg Q4H PRN Administration Severe Pain Polyethylene Glycol 17 gm 05/13/25 09:00 05/13/25 08:35 Polyethylene Glycol 3350 17 Gm Powd.Pack PO Not Given DAILY NEIL Potassium Chloride 10 meq 05/05/25 09:00 05/13/25 08:34 Potassium Chloride 10 Meq Er Tablet PO 10 meq DAILY NEIL Administration Senna/Docusate Sodium 1 tab 05/05/25 21:00 05/12/25 21:02 Senna/Docusate Sodium Tablet PO Not Given HS NEIL Sodium Chloride 1 gm 05/06/25 09:00 05/13/25 16:58 Sodium Chloride 1 Gm Tablet PO 1 gm BID NEIL Administration Thiamine HCl 100 mg 05/05/25 09:00 05/13/25 08:34 Thiamine Hcl 100 Mg Tablet PO 100 mg QAM NEIL Administration Trimethoprim/Sulfamethoxazole 1 tab 05/13/25 13:00 05/13/25 13:56 Sulfamethoxazole/Trimethoprim 800/160 Mg Ds Tablet PO 1 tab Q12HR NEIL Administration Radiology Results: ITS Impressions Thoracic/Lumbar Spine CT 05/04/25 14:04 IMPRESSION: Small right pleural effusion. Acute/subacute mild compression fractures at T9, T10, and T12. 5 mm groundglass and 15 mm mixed groundglass/solid right upper lobe pulmonary nodules that have increased in size slightly since the October comparison CT. Recommend biopsy or PET/CT. No acute fracture or traumatic malalignment detected in the lumbar spine. Abdomen X-Ray 05/06/25 19:50 IMPRESSION: Suggestion of gastric fold thickening as can be seen with gastritis or varices. Suggestion of small bowel wall thickening, may reflect enteritis. Head CT 05/06/25 19:54 Impression: No acute intracranial hemorrhage or suspicious mass effect. Abdomen/Pelvis CT 05/06/25 20:40 IMPRESSION: Small volume pericardial fluid versus pericardial thickening. Small right pleural effusion with adjacent atelectasis. Infection not excluded. Moderate gastric distention with prominent folds and may represent gastric varices. Cirrhosis with portal hypertension. Mild gastric distention with prominent gastric folds that may represent gastric varices. Proximal small bowel wall thickening as can be seen with enteritis. Segmental wall thickening in the transverse and sigmoid colon, as can be seen with infectious, inflammatory, or ischemic colitis. Possible mild fecal impaction and constipation. Distended urinary bladder, correlate for urinary retention. Progressive mild-moderate multilevel compression fractures in the thoracic and lumbar spine. Brain MRI 05/07/25 13:49 IMPRESSION: 1. Severely limited study which was terminated prematurely at patient request due to back pain following only the sagittal T1-weighted imaging. Unable to assess for either acute infarction or T2-weighted signal changes and significantly decrease sensitivity for intracranial hemorrhage which was not observed. 2. Mild age-appropriate diffuse volume loss. Ankle Brachial Index 05/09/25 09:11 IMPRESSION: 1. Diminished bilateral toe brachial indices consistent with peripheral arterial disease. Heel X-Ray 05/11/25 18:05 IMPRESSION: No acute osseous finding in the right heel. Sacrum and Coccyx X-Ray 05/11/25 18:06 IMPRESSION: Exam limited by rotation in the lateral view and osteopenia. No definite fracture or erosion to suggest osteomyelitis. If clinical suspicion is high recommend CT of the pelvis with contrast for further evaluation. Labs Labs: Laboratory Tests 05/13/25 05:55 05/13/25 05:55 Calcium 8.9 C-Reactive Protein 5.6 H Microbiology 05/11/25 14:03 Foot Right Gram Stain - Final 05/11/25 14:00 Abscess Gram Stain - Final 05/12/25 14:29 Abscess Gram Stain - Final
--- NOTE | 2025-05-13 11:23 | PM.PNGS ---
Progress Note: A&P Assessment and Plan (1) Abscess of buttock, left: Code(s): L02.31 - Cutaneous abscess of buttock Status: Acute Assessment and Plan: S/p I&D on 05/12. Abscess appears adequately drained. Continue local wound care Continue IV antibiotics. Cultures pending. (2) Decubitus ulcer: Qualifiers: Pressure injury location: buttock Pressure injury stage: unspecified pressure injury stage Laterality: unspecified laterality Qualified Code(s): L89.309 - Pressure ulcer of unspecified buttock, unspecified stage Code(s): L89.90 - Pressure ulcer of unspecified site, unspecified stage Status: Acute Assessment and Plan: Continue local wound care to right heel ulcer. Will start iodoform packing dressing changes to sacral wound daily. Continue with pressure offloading - elevate heels off bed/frequent turning. (3) Insulin dependent type 2 diabetes mellitus: Code(s): E11.9 - Type 2 diabetes mellitus without complications; Z79.4 - salvage determiner (current) use of insulin Status: Chronic (4) Peripheral vascular disease: Code(s): I73.9 - Peripheral vascular disease, unspecified Status: Acute (5) Alcoholic liver disease: Code(s): K70.9 - Alcoholic liver disease, unspecified Status: Chronic Plan I have discussed the patient's case and plan of care with Dr. Iglesias. Subjective Subjective Date/Time Seen: 05/13/25 11:23 Post Op day: 1 (Incision and drainage of complicated left buttock abscess, Sharp excisional debridement of sacral decubitus ulcer) Patient reports: no new complaints and afebrile Interval history: Patient seen for wound check/dressing change. No acute issues overnight. Exam Narrative: Sacral wound packing removed, no purulent drainage, minimal henao/yellow slough in the wound bed Objective Data Vital Signs Vital Signs: Vital Signs - 24 hr 05/12/25 13:34 05/12/25 14:35 05/12/25 14:50 Temperature 97.1 F L 97.2 F L Pulse Rate 99 98 98 Respiratory Rate 16 12 12 Blood Pressure 121/50 L 105/48 L 107/52 L Pulse Oximetry 100 100 99 Oxygen Delivery Room Air Simple Face Mask Room Air Oxygen Flow Rate 8 05/12/25 15:05 05/12/25 15:20 05/12/25 15:35 Temperature Pulse Rate 98 98 99 Respiratory Rate 12 20 18 Blood Pressure 105/50 L 98/53 L 103/54 L Pulse Oximetry 98 100 100 Oxygen Delivery Room Air Room Air Room Air Oxygen Flow Rate 05/12/25 15:41 05/12/25 15:56 05/12/25 16:26 Temperature 97.8 F 97.8 F 97.8 F Pulse Rate 99 100 100 Respiratory Rate 18 18 18 Blood Pressure 103/45 L 98/45 L 100/49 L Pulse Oximetry 100 100 99 Oxygen Delivery Oxygen Flow Rate 05/12/25 17:26 05/12/25 21:22 05/13/25 05:26 Temperature 97.8 F 99.0 F 99.8 F H Pulse Rate 100 100 96 Respiratory Rate 18 16 16 Blood Pressure 110/51 L 100/48 L 123/65 Pulse Oximetry 99 96 96 Oxygen Delivery Oxygen Flow Rate 05/13/25 09:26 Temperature 97.7 F Pulse Rate 97 Respiratory Rate 18 Blood Pressure 105/53 L Pulse Oximetry 100 Oxygen Delivery Oxygen Flow Rate Intake/Output Intake/Output: Intake & Output 05/10/25 05/11/25 05/12/25 05/13/25 23:59 23:59 23:59 23:59 Intake Total 1020 1270 630 684 Output Total 2300 1900 850 900 [facility] -1280 -630 -220 -216 Meds/Results Medications: Active Medications Generic Name Dose Route Start Last Admin Trade Name Freq PRN Reason Stop Dose Admin Acetaminophen 1,000 mg 05/05/25 17:00 05/13/25 08:34 Acetaminophen 500 Mg Tablet PO 1,000 mg TID NEIL Administration Ascorbic Acid 500 mg 05/05/25 09:00 05/13/25 08:34 Ascorbic Acid 500 Mg Tablet PO 500 mg DAILY NEIL Administration Atorvastatin Calcium 10 mg 05/05/25 09:00 05/13/25 08:34 Atorvastatin 10 Mg Tablet PO 10 mg QAM NEIL Administration Bumetanide 1 mg 05/04/25 17:00 05/06/25 08:22 Bumetanide 1 Mg Tablet PO 1 mg BID NEIL Administration Calcium Carbonate 200 mg 05/11/25 15:11 05/11/25 15:18 Calcium Carbonate (Tums) 500 Mg (200 Mg Elemental) PO 200 mg Q6H PRN Administration Indigestion Dextrose 12.5 gm 05/04/25 16:57 Dextrose 50% 25 Gm/50 Ml Syringe IV PUSH PRN PRN Hypoglycemia Protocol Doxycycline Hyclate 100 mg 05/11/25 21:00 05/13/25 08:34 Doxycycline Hyclate 100 Mg Tablet PO 100 mg Q12HR NEIL Administration Empagliflozin 10 mg 05/05/25 09:00 05/13/25 08:34 Empagliflozin 10 Mg Tablet PO 10 mg DAILY NEIL Administration Ferrous Sulfate 325 mg 05/05/25 09:00 05/13/25 08:34 Ferrous Sulfate [address] PO 325 mg DAILY NEIL Administration Fluticasone Propionate 1 spray 05/04/25 16:59 Fluticasone Propionate 0.05% Na Spr 16 Gm Btl (*Bkc) NASAL DAILY PRN allergies Folic Acid 0.8 mg 05/05/25 09:00 05/13/25 08:33 Folic Acid 0.4 Mg Tablet PO 0.8 mg DAILY NIEL Administration Gabapentin 300 mg 05/05/25 21:00 05/05/25 21:28 Gabapentin 300 Mg Capsule PO 300 mg HS NEIL Administration Glucagon 1 mg 05/04/25 16:57 Glucagon For Inj 1 Mg Vial IM PRN PRN Hypoglycemia Protocol Glucose 15 gm 05/04/25 16:57 Glucose Oral Gel 15 Gm Of Glucse In 37.5 Gm Tube PO PRN PRN Hypoglycemia Protocol Heparin Sodium (Porcine) 5,000 units 05/13/25 21:00 Heparin Sodium 5,000 Units/Ml Vial SUB-Q Q12HR NEIL Hydromorphone HCl 0.5 mg 05/05/25 13:45 05/12/25 20:58 Hydromorphone Hcl Inj (*Crx) 2 Mg/Ml Vial IV PUSH 0.5 mg Q3H PRN Administration Breakthrough Pain Ceftriaxone Sodium 2 gm/ 100 mls @ 200 mls/hr 05/11/25 14:00 05/12/25 15:17 Sodium Chloride IVPB Infused Q24H [facility] Infusion Insulin Aspart 4 - 8 units 05/04/25 17:00 05/13/25 08:44 Insulin Aspart (*Bkc) 100 Units/Ml SUB-Q Not Given TIDWM [facility] Protocol Insulin Aspart 3 units 05/04/25 17:20 05/13/25 08:44 Insulin Aspart (*Bkc) 100 Units/Ml SUB-Q Not Given ACINSULIN [facility] Insulin Glargine 10 units 05/08/25 21:00 05/12/25 22:48 Insulin Glargine (*Bkc) 100 Units/Ml SUB-Q 10 units HS NEIL Administration Lidocaine 1 patch 05/05/25 09:00 05/13/25 08:35 Lidocaine 5% Patch TOPICAL Not Given DAILY NEIL Methocarbamol 750 mg 05/04/25 17:00 05/06/25 17:12 Methocarbamol 750 Mg Tablet PO 750 mg TID NEIL Administration Metronidazole 500 mg 05/11/25 14:00 05/13/25 05:37 Metronidazole 500 Mg Tablet PO 500 mg Q8HR NEIL Administration Multi-Ingred Cream/Lotion/Oil/Oint 1 applic 05/04/25 17:23 Eucerin Cream 454 Gm Jar TOPICAL PRN PRN DRESSING CHANGES Multi-Ingred Cream/Lotion/Oil/Oint 1 applic 05/05/25 09:00 05/13/25 08:45 Eucerin Cream 454 Gm Jar TOPICAL 1 applic DAILY NEIL Administration Multivitamins/Calcium 1 tablet 05/05/25 09:00 05/13/25 08:34 Therapeutic Multivitamins/Minerals Tab (*Bkc) PO 1 tablet DAILY NEIL Administration Ondansetron HCl 4 mg 05/06/25 09:43 05/06/25 17:22 Ondansetron Inj 4 Mg/2 Ml Vial IV PUSH 4 mg Q4H PRN Administration Nausea And Vomiting Oxycodone HCl 2.5 mg 05/05/25 13:45 05/12/25 16:50 Oxycodone Hcl (*Crx) 2.5 Mg Tab Ir PO 2.5 mg Q4H PRN Administration Moderate Pain (4-6) Oxycodone HCl 5 mg 05/05/25 13:53 05/13/25 08:31 Oxycodone Hcl (*Crx) 5 Mg Tab Ir PO 5 mg Q4H PRN Administration Severe Pain Polyethylene Glycol 17 gm 05/13/25 09:00 05/13/25 08:35 Polyethylene Glycol 3350 17 Gm Powd.Pack PO Not Given DAILY [facility] Potassium Chloride 10 meq 05/05/25 09:00 05/13/25 08:34 Potassium Chloride 10 Meq Er Tablet PO 10 meq DAILY NEIL Administration Senna/Docusate Sodium 1 tab 05/05/25 21:00 05/12/25 21:02 Senna/Docusate Sodium Tablet PO Not Given HS NEIL Sodium Chloride 1 gm 05/06/25 09:00 05/13/25 08:34 Sodium Chloride 1 Gm Tablet PO 1 gm BID NEIL Administration Thiamine HCl 100 mg 05/05/25 09:00 05/13/25 08:34 Thiamine Hcl 100 Mg Tablet PO 100 mg QAM NEIL Administration Radiology Results: ITS Impressions Thoracic/Lumbar Spine CT 05/04/25 14:04 IMPRESSION: Small right pleural effusion. Acute/subacute mild compression fractures at T9, T10, and T12. 5 mm groundglass and 15 mm mixed groundglass/solid right upper lobe pulmonary nodules that have increased in size slightly since the October comparison CT. Recommend biopsy or PET/CT. No acute fracture or traumatic malalignment detected in the lumbar spine. Abdomen X-Ray 05/06/25 19:50 IMPRESSION: Suggestion of gastric fold thickening as can be seen with gastritis or varices. Suggestion of small bowel wall thickening, may reflect enteritis. Head CT 05/06/25 19:54 Impression: No acute intracranial hemorrhage or suspicious mass effect. Abdomen/Pelvis CT 05/06/25 20:40 IMPRESSION: Small volume pericardial fluid versus pericardial thickening. Small right pleural effusion with adjacent atelectasis. Infection not excluded. Moderate gastric distention with prominent folds and may represent gastric varices. Cirrhosis with portal hypertension. Mild gastric distention with prominent gastric folds that may represent gastric varices. Proximal small bowel wall thickening as can be seen with enteritis. Segmental wall thickening in the transverse and sigmoid colon, as can be seen with infectious, inflammatory, or ischemic colitis. Possible mild fecal impaction and constipation. Distended urinary bladder, correlate for urinary retention. Progressive mild-moderate multilevel compression fractures in the thoracic and lumbar spine. Brain MRI 05/07/25 13:49 IMPRESSION: 1. Severely limited study which was terminated prematurely at patient request due to back pain following only the sagittal T1-weighted imaging. Unable to assess for either acute infarction or T2-weighted signal changes and significantly decrease sensitivity for intracranial hemorrhage which was not observed. 2. Mild age-appropriate diffuse volume loss. Ankle Brachial Index 05/09/25 09:11 IMPRESSION: 1. Diminished bilateral toe brachial indices consistent with peripheral arterial disease. Heel X-Ray 05/11/25 18:05 IMPRESSION: No acute osseous finding in the right heel. Sacrum and Coccyx X-Ray 05/11/25 18:06 IMPRESSION: Exam limited by rotation in the lateral view and osteopenia. No definite fracture or erosion to suggest osteomyelitis. If clinical suspicion is high recommend CT of the pelvis with contrast for further evaluation. Labs Labs: Laboratory Results - last 24 hr 05/12/25 05/12/25 05/12/25 11:46 14:53 16:22 WBC RBC Hgb Hct MCV MCH MCHC RDW Plt Count MPV Immature Gran % (Auto) Neut % (Auto) Lymph % (Auto) [facility] % (Auto) Eos % (Auto) Baso % (Auto) Lymph # (Auto) [facility] # (Auto) Eos # (Auto) Baso # (Auto) Abs Immat Gran (auto) Absolute Neuts (auto) Absolute Nucleated RBC Nucleated RBC % Sodium Potassium Chloride Carbon Dioxide Anion Gap BUN Creatinine Estim Creat Clear Calc Estimated GFR Glucose POC Capillary Glucose 100 90 91 Calcium C-Reactive Protein 05/12/25 05/13/25 05/13/25 19:43 05:55 07:51 WBC 5.6 RBC 3.28 L Hgb 10.6 L Hct 33.5 L MCV 102.1 H MCH 32.3 MCHC 31.6 L RDW 14.9 H Plt Count 239 MPV 10.1 Immature Gran % (Auto) 0.7 H Neut % (Auto) 63.1 Lymph % (Auto) 10.0 L [facility] % (Auto) 13.4 H Eos % (Auto) 11.6 H Baso % (Auto) 1.2 Lymph # (Auto) 0.56 L [facility] # (Auto) 0.8 H Eos # (Auto) 0.7 H Baso # (Auto) 0.1 Abs Immat Gran (auto) 0.04 H Absolute Neuts (auto) 3.5 Absolute Nucleated RBC 0.000 Nucleated RBC % 0.0 Sodium 134 L Potassium 3.4 Chloride 100 Carbon Dioxide 24 Anion Gap 10 BUN 35 H Creatinine 1.10 H Estim Creat Clear Calc 37 Estimated GFR 49 L Glucose 90 POC Capillary Glucose 165 H 85 Calcium 8.9 C-Reactive Protein 5.6 H
[2025-05-13] MEDS: INSULIN ASPART (*BKC) 100 UNITS/ML SUB-Q ×3 (12:26→17:04)
[2025-05-13] MEDS: SULFAMETHOXAZOLE/TRIMETHOPRIM 800/160 MG DS TABLET 1 TAB PO ×2 (13:56→20:32)
[2025-05-13] MEDS: cefTRIAXone 2 GM in SODIUM CHLORIDE 0.9% IV 100 ML 200 ML IVPB (13:56)
--- NOTE | 2025-05-13 14:28 | WPDANESPN ---
Anes - Prog Note Post-Op Date/Time: 05/13/25 14:28 Cardiovascular status: normal Respiratory status: normal Airway patency: baseline Mental status: baseline Post-Op hydration status: normal Vital Signs: Last Vital Signs Temp 97.7 F 05/13/25 13:26 Pulse 99 05/13/25 13:26 Resp 16 05/13/25 13:26 BP 93/41 L 05/13/25 13:26 Pulse Ox 95 05/13/25 13:26 O2 Del Method Room Air 05/12/25 15:35 O2 Flow Rate 8 05/12/25 14:35 FiO2 21 05/10/25 20:00 Pain Score (VAS): 0/10 I/O: Intake & Output 05/12/25 05/13/25 05/13/25 23:59 07:59 15:59 Intake Total 240 444 240 Output Total 650 250 Balance 240 -206 -10 Laboratory Tests 05/13/25 05:55 05/13/25 05:55 05/12/25 05/12/25 05/12/25 14:53 16:22 19:43 WBC RBC Hgb Hct MCV MCH MCHC RDW Plt Count MPV Immature Gran % (Auto) Neut % (Auto) Lymph % (Auto) [place] % (Auto) Eos % (Auto) Baso % (Auto) Lymph # (Auto) [place] # (Auto) Eos # (Auto) Baso # (Auto) Abs Immat Gran (auto) Absolute Neuts (auto) Absolute Nucleated RBC Nucleated RBC % Sodium Potassium Chloride Carbon Dioxide Anion Gap BUN Creatinine Estim Creat Clear Calc Estimated GFR Glucose POC Capillary Glucose 90 91 165 H Calcium C-Reactive Protein 05/13/25 05/13/25 05/13/25 05:55 07:51 11:30 WBC 5.6 RBC 3.28 L Hgb 10.6 L Hct 33.5 L MCV 102.1 H MCH 32.3 MCHC 31.6 L RDW 14.9 H Plt Count 239 MPV 10.1 Immature Gran % (Auto) 0.7 H Neut % (Auto) 63.1 Lymph % (Auto) 10.0 L K[place]t % (Auto) 13.4 H Eos % (Auto) 11.6 H Baso % (Auto) 1.2 Lymph # (Auto) 0.56 L [place] # (Auto) 0.8 H Eos # (Auto) 0.7 H Baso # (Auto) 0.1 Abs Immat Gran (auto) 0.04 H Absolute Neuts (auto) 3.5 Absolute Nucleated RBC 0.000 Nucleated RBC % 0.0 Sodium 134 L Potassium 3.4 Chloride 100 Carbon Dioxide 24 Anion Gap 10 BUN 35 H Creatinine 1.10 H Estim Creat Clear Calc 37 Estimated GFR 49 L Glucose 90 POC Capillary Glucose 85 229 H Calcium 8.9 C-Reactive Protein 5.6 H Post-procedural complaints: none Patient Feedback: Patient satisfied with anesthetic care.
[2025-05-13] MEDS: INSULIN GLARGINE (*BKC) 100 UNITS/ML 10 UNITS SUB-Q (20:34)
[2025-05-14] MEDS: oxyCODONE HCL (*CRX) 5 MG TAB IR PO ×2 (03:20→20:25)
[2025-05-14] MEDS: oxyCODONE HCL (*CRX) 2.5 MG TAB IR PO ×3 (03:20→20:25)
[2025-05-14 06:19] VITALS: BP 120/54; PULSE 98; RESP 24; TEMP 36.4; O2SAT 96
[2025-05-14 06:32] LABS: Hematocrit 32.8 % (37.0-47.0); Hemoglobin 10.3 g/dL (12.0-15.0); Immature Granulocyte Percent A 1.2 % (0-0.5); Lymphocytes Absolute Auto 0.47 K/mm3 (0.9-3.2); Mean Corpuscular HGB Conc 31.4 g/dl (32-36); Mean Corpuscular Hemoglobin 32.1 pg (26-34); Mean Corpuscular Volume 102.2 fl (80-100); Nucleated Red Blood Cells Absolute Auto 0.000 K/mm3 (0.0-0.012); Nucleated Red Blood Cells Perc 0.0 % (0.0-0.2); Platelet Count Result 253 k/mm3 (150-375); Red Blood Count 3.21 M/mm3 (4.2-5.4); White Blood Count 7.4 K/mm3 (4.5-10.0)
[2025-05-14 07:34] LABS: CRP 5.8 mg/dL (<1.0)
[2025-05-14 07:35] LABS: Anion Gap 9 mmol/L (4-12); Blood Urea Nitrogen 33 mg/dL (7-17); Calcium 8.9 mg/dL (8.4-10.2); Carbon Dioxide 22 mmol/L (22-30); Chloride 97 mmol/L (98-107); Estimated CRCL calculation 34 ml/min; Estimated Glomerular Filt Rate 44; Glucose 103 mg/dL (65-110); Potassium 3.6 mmol/L (3.4-5.0); Sodium 128 mmol/L (137-145)
[2025-05-14] MEDS: FOLIC ACID 0.4 MG TABLET 0.8 MG PO (09:19)
[2025-05-14] MEDS: ATORVASTATIN 10 MG TABLET PO (09:19)
[2025-05-14] MEDS: ASCORBIC ACID 500 MG TABLET PO (09:20)
[2025-05-14] MEDS: SODIUM CHLORIDE 1 GM TABLET PO ×2 (09:20→17:14)
[2025-05-14] MEDS: ACETAMINOPHEN 500 MG TABLET 1000 MG PO ×2 (09:20→17:14)
[2025-05-14] MEDS: THIAMINE HCL 100 MG TABLET PO (09:20)
[2025-05-14] MEDS: FERROUS SULFATE 325 MG TABLET DR PO (09:20)
[2025-05-14] MEDS: SULFAMETHOXAZOLE/TRIMETHOPRIM 800/160 MG DS TABLET 1 TAB PO ×2 (09:20→20:30)
[2025-05-14] MEDS: POTASSIUM CHLORIDE 10 MEQ ER TABLET PO (09:20)
[2025-05-14] MEDS: BUMETANIDE 1 MG TABLET PO ×2 (09:20→17:14)
[2025-05-14] MEDS: THERAPEUTIC MULTIVITAMINS/MINERALS TAB (*BKC) 1 TABLET PO (09:20)
[2025-05-14] MEDS: EMPAGLIFLOZIN 10 MG TABLET PO (09:20)
[2025-05-14] MEDS: CALCIUM CARBONATE (TUMS) 500 MG (200 MG ELEMENTAL) PO (09:24)
--- NOTE | 2025-05-14 10:15 | PCOTNOTE ---
Patient states she needs pain medication, Nursing staff is going to perform a dressing change, will check back later.
--- NOTE | 2025-05-14 11:16 | PM.IMPN ---
Progress Note: A&P Assessment and Plan (1) Alcoholism: Code(s): F10.20 - Alcohol dependence, uncomplicated Status: Chronic Plan Infected wound: Code(s): T14.8XXA - Other injury of unspecified body region, initial encounter; L08.9 - Local infection of the skin and subcutaneous tissue, unspecified Status: Acute Assessment and Plan: -Sacral wound noted to be draining yellow/brown purulent drainage - XR sacrum no obvious signs of osteomyelitis - WBC 10.7, ESR 101, afebrile -Sent cultures 05/11 from sacrum and right heel. Surgical cultures also pending--follow results - s/p I&D of buttock abscess and debridement of sacral decubitus ulcer 05/12/25 on Rocephin and Bactrim per ID pharmacist recommendations, adjust per cultures -Wound care following, continue to monitor Non-healing wound of right heel: Code(s): S91.301A - Unspecified open wound, right foot, initial encounter Status: Acute Assessment and Plan: - XR R heel with no osteo -wound appears clean and dry. -SONIA notable for PAD. - continue wound care - needs outpatient follow-up with vascular surgery. G positive cocci from wound culture Acute on chronic back pain: Code(s): M54.9 - Dorsalgia, unspecified; G89.29 - Other chronic pain Status: Acute Assessment and Plan: -CT thoracic/lumbar, 05/04: Acute/subacute mild compression fractures at T9, T10, and T12. No acute fracture or traumatic malalignment detected in the lumbar spine. -Uses a wheelchair at baseline. no precipitating trauma. unable to care for herself independently in current state prompting attempt for placement from the ED to acute rehab, unsuccessful. admitted for pain control, PT/OT and placement. - consulted neuro surgery, placed a brace and recommended outpatient follow-up 6 weeks. Avoid bending/twisting and no heavy lifting. -Scheduled Tylenol 650 TID, holding gabapentin 300mg hs. Continue oxycodone PRN, Dilaudid PRN for breakthrough pain. Wean IV narcotics as able. -Bowel regimen with opiates - PT/OT recommended SNF, but patient hoping to return home with [facility]. Care coordination following. Pulmonary nodule: Code(s): R91.1 - Solitary pulmonary nodule Status: Acute Assessment and Plan: - CT showed 5 mm groundglass and 15 mm mixed groundglass/solid right upper lobe pulmonary nodules that have increased in size slightly since the October comparison CT. Recommend biopsy or PET/CT. -Discussed biopsy with radiologist and recommended biopsy over PET scan. plan to pursue as outpatient. Chronic hyponatremia: Code(s): E87.1 - Hypo-osmolality and hyponatremia Status: Chronic Assessment and Plan: - chronic. 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 Has been over 2 previously. - creatinine 1.15, BUN 24, GFR 24 upon initial evaluation. Up to 1.5, diuretics held temporarily and Cr improved -Had normal kidneys on US earlier this year, UA negative - trend renal function - trend electrolytes, correct as needed - resumed Bumex 05/13. Monitor renal function. (8) Chronic anemia: Code(s): D64.9 - Anemia, unspecified Status: Chronic Assessment and Plan: - admit Hgb 11.8, previously 8.0 on 02/07 - secondary to chronic disease - transfuse if <7 - monitor (9) Alcoholism: Code(s): F10.20 - Alcohol dependence, uncomplicated Status: Chronic Assessment and Plan: -History of alcohol abuse, still has occasional use. - had signs of mild withdrawal s/p librium tap (10) Double vision: Code(s): H53.2 - Diplopia Status: Resolved Assessment and Plan: -RESOLVED -Binocular, also associated with tremors. Both symptoms resolved completely on exam 05/08 S/P Thiamine 500mg IV q8h x3. Also treated possible alcohol withdrawal, ativan 0.25 x1, scheduled librium 10 TID 05/08 -Head CT no acute findings. MRI brain unable to be completed due to low back pain (11) Vomiting: Code(s): R11.10 - Vomiting, unspecified Status: Resolved Assessment and Plan: -Zofran prn - resolved (12) Hypokalemia: Code(s): E87.6 - Hypokalemia Status: Acute Assessment and Plan: -resolved with PO replacement (13) Urinary retention: Code(s): R33.9 - Retention of urine, unspecified Status: Acute Assessment and Plan: -patient had episode of urinary retention requiring Samuel catheter placement -continue Samuel given sacral wound, recommend voiding trial soon (14) Alcoholic cirrhosis: Code(s): K70.30 - Alcoholic cirrhosis of liver without ascites Status: Acute Assessment and Plan: - CT A/P showed moderate gastric distention which may represent gastric varices, cirrhosis with portal hypertension. Also showed possible colitis. - GI consulted, planning for outpatient Fibroscan. No concern for colitis given lack of abdominal pain or diarrhea. Subjective Date/time seen: 05/14/25 11:16 Interval history: I saw exam patient today, patient still has lower back pain, tolerable, denies chest pain shortness breast headache, nausea vomiting diarrhea Wound culture pending Exam Narrative: General: NAD Eyes: EOMI ENT: neck supple Cardiovascular: Regular rate and rhythm Respiratory: Clear to auscultation, respirations even and unlabored on RA Gastrointestinal: Soft, non tender Genitourinary: no suprapubic tenderness Musculoskeletal: left buttock wound clean with bloody drainage. Chronic venous stasis skin changes. Skin: warm, dry Neuro: Alert. Psych: Mood appropriate Objective Data Vital Signs Vital Signs: Vital Signs - 24 hr 05/13/25 13:26 05/13/25 17:26 05/13/25 21:54 Temperature 97.7 F 97.5 F L 97.5 F L Pulse Rate 99 97 96 Respiratory Rate 16 16 16 Blood Pressure 93/41 L 98/55 L 108/54 L Pulse Oximetry 95 100 100 Oxygen Delivery 05/13/25 21:58 05/14/25 06:19 Temperature 97.5 F L Pulse Rate 98 Respiratory Rate 24 H Blood Pressure 120/54 L Pulse Oximetry 100 96 Oxygen Delivery Room Air Intake/Output Intake/Output: Intake & Output 05/11/25 05/12/25 05/13/25 05/14/25 23:59 23:59 23:59 23:59 Intake Total 1270 630 924 680 Output Total 5097 216 4555 900 Balance -630 -220 -326 -220 Meds/Results Medications: Active Medications Generic Name Dose Route Start Last Admin Trade Name Freq PRN Reason Stop Dose Admin Acetaminophen 1,000 mg 05/05/25 17:00 05/14/25 09:20 Acetaminophen 500 Mg Tablet PO 1,000 mg TID NEIL Administration Ascorbic Acid 500 mg 05/05/25 09:00 05/14/25 09:20 Ascorbic Acid 500 Mg Tablet PO 500 mg DAILY NEIL Administration Atorvastatin Calcium 10 mg 05/05/25 09:00 05/14/25 09:19 Atorvastatin 10 Mg Tablet PO 10 mg QAM NEIL Administration Bumetanide 1 mg 05/04/25 17:00 05/14/25 09:20 Bumetanide 1 Mg Tablet PO 1 mg BID NEIL Administration Calcium Carbonate 200 mg 05/11/25 15:11 05/14/25 09:24 Calcium Carbonate (Tums) 500 Mg (200 Mg Elemental) PO 200 mg Q6H PRN Administration Indigestion Dextrose 12.5 gm 05/04/25 16:57 Dextrose 50% 25 Gm/50 Ml Syringe IV PUSH PRN PRN Hypoglycemia Protocol Docusate Sodium 100 mg 05/14/25 21:00 Docusate Sodium 100 Mg Capsule PO Q12HR NEIL Empagliflozin 10 mg 05/05/25 09:00 05/14/25 09:20 Empagliflozin 10 Mg Tablet PO 10 mg DAILY NEIL Administration Ferrous Sulfate 325 mg 05/05/25 09:00 05/14/25 09:20 Ferrous Sulfate [address] PO 325 mg DAILY NEIL Administration Fluticasone Propionate 1 spray 05/04/25 16:59 Fluticasone Propionate 0.05% Na Spr 16 Gm Btl (*Bkc) NASAL DAILY PRN allergies Folic Acid 0.8 mg 05/05/25 09:00 05/14/25 09:19 Folic Acid 0.4 Mg Tablet PO 0.8 mg DAILY NEIL Administration Gabapentin 300 mg 05/05/25 21:00 05/05/25 21:28 Gabapentin 300 Mg Capsule PO 300 mg HS NEIL Administration Glucagon 1 mg 05/04/25 16:57 Glucagon For Inj 1 Mg Vial IM PRN PRN Hypoglycemia Protocol Glucose 15 gm 05/04/25 16:57 Glucose Oral Gel 15 Gm Of Glucse In 37.5 Gm Tube PO PRN PRN Hypoglycemia Protocol Heparin Sodium (Porcine) 5,000 units 05/13/25 21:00 05/14/25 09:19 Heparin Sodium 5,000 Units/Ml Vial SUB-Q 5,000 units Q12HR NEIL Administration Hydromorphone HCl 0.5 mg 05/05/25 13:45 05/12/25 20:58 Hydromorphone Hcl Inj (*Crx) 2 Mg/Ml Vial IV PUSH 0.5 mg Q3H PRN Administration Breakthrough Pain Ceftriaxone Sodium 2 gm/ 100 mls @ 200 mls/hr 05/11/25 14:00 05/13/25 13:56 Sodium Chloride IVPB 200 mls/hr Q24H NEIL Administration Insulin Aspart 4 - 8 units 05/04/25 17:00 05/14/25 10:06 Insulin Aspart (*Bkc) 100 Units/Ml SUB-Q Not Given TIDWM [facility] Protocol Insulin Aspart 3 units 05/04/25 17:20 05/14/25 09:22 Insulin Aspart (*Bkc) 100 Units/Ml SUB-Q Not Given ACINSULIN [facility] Insulin Glargine 10 units 05/08/25 21:00 05/13/25 20:34 Insulin Glargine (*Bkc) 100 Units/Ml SUB-Q 10 units HS NEIL Administration Lidocaine 1 patch 05/05/25 09:00 05/14/25 09:21 Lidocaine 5% Patch TOPICAL Not Given DAILY NEIL Methocarbamol 750 mg 05/04/25 17:00 05/06/25 17:12 Methocarbamol 750 Mg Tablet PO 750 mg TID NEIL Administration Multi-Ingred Cream/Lotion/Oil/Oint 1 applic 05/04/25 17:23 Eucerin Cream 454 Gm Jar TOPICAL PRN PRN DRESSING CHANGES Multi-Ingred Cream/Lotion/Oil/Oint 1 applic 05/05/25 09:00 05/13/25 08:45 Eucerin Cream 454 Gm Jar TOPICAL 1 applic DAILY NEIL Administration Multivitamins/Calcium 1 tablet 05/05/25 09:00 05/14/25 09:20 Therapeutic Multivitamins/Minerals Tab (*Bkc) PO 1 tablet DAILY NEIL Administration Ondansetron HCl 4 mg 05/06/25 09:43 05/06/25 17:22 Ondansetron Inj 4 Mg/2 Ml Vial IV PUSH 4 mg Q4H PRN Administration Nausea And Vomiting Oxycodone HCl 2.5 mg 05/05/25 13:45 05/14/25 09:24 Oxycodone Hcl (*Crx) 2.5 Mg Tab Ir PO 2.5 mg Q4H PRN Administration Moderate Pain (4-6) Oxycodone HCl 5 mg 05/05/25 13:53 05/14/25 03:20 Oxycodone Hcl (*Crx) 5 Mg Tab Ir PO 5 mg Q4H PRN Administration Severe Pain Pantoprazole Sodium 40 mg 05/15/25 09:00 Pantoprazole 40 Mg Tablet PO QAM NEIL Polyethylene Glycol 17 gm 05/14/25 10:56 Polyethylene Glycol 3350 17 Gm Powd.Pack PO DAILY PRN Constipation Potassium Chloride 10 meq 05/05/25 09:00 05/14/25 09:20 Potassium Chloride 10 Meq Er Tablet PO 10 meq DAILY NEIL Administration Senna/Docusate Sodium 1 tab 05/05/25 21:00 05/13/25 20:34 Senna/Docusate Sodium Tablet PO Not Given HS NEIL Sodium Chloride 1 gm 05/06/25 09:00 05/14/25 09:20 Sodium Chloride 1 Gm Tablet PO 1 gm BID NEIL Administration Thiamine HCl 100 mg 05/05/25 09:00 05/14/25 09:20 Thiamine Hcl 100 Mg Tablet PO 100 mg QAM NEIL Administration Trimethoprim/Sulfamethoxazole 1 tab 05/13/25 13:00 05/14/25 09:20 Sulfamethoxazole/Trimethoprim 800/160 Mg Ds Tablet PO 1 tab Q12HR NEIL Administration Radiology Results: ITS Impressions Thoracic/Lumbar Spine CT 05/04/25 14:04 IMPRESSION: Small right pleural effusion. Acute/subacute mild compression fractures at T9, T10, and T12. 5 mm groundglass and 15 mm mixed groundglass/solid right upper lobe pulmonary nodules that have increased in size slightly since the October comparison CT. Recommend biopsy or PET/CT. No acute fracture or traumatic malalignment detected in the lumbar spine. Abdomen X-Ray 05/06/25 19:50 IMPRESSION: Suggestion of gastric fold thickening as can be seen with gastritis or varices. Suggestion of small bowel wall thickening, may reflect enteritis. Head CT 05/06/25 19:54 Impression: No acute intracranial hemorrhage or suspicious mass effect. Abdomen/Pelvis CT 05/06/25 20:40 IMPRESSION: Small volume pericardial fluid versus pericardial thickening. Small right pleural effusion with adjacent atelectasis. Infection not excluded. Moderate gastric distention with prominent folds and may represent gastric varices. Cirrhosis with portal hypertension. Mild gastric distention with prominent gastric folds that may represent gastric varices. Proximal small bowel wall thickening as can be seen with enteritis. Segmental wall thickening in the transverse and sigmoid colon, as can be seen with infectious, inflammatory, or ischemic colitis. Possible mild fecal impaction and constipation. Distended urinary bladder, correlate for urinary retention. Progressive mild-moderate multilevel compression fractures in the thoracic and lumbar spine. Brain MRI 05/07/25 13:49 IMPRESSION: 1. Severely limited study which was terminated prematurely at patient request due to back pain following only the sagittal T1-weighted imaging. Unable to assess for either acute infarction or T2-weighted signal changes and significantly decrease sensitivity for intracranial hemorrhage which was not observed. 2. Mild age-appropriate diffuse volume loss. Ankle Brachial Index 05/09/25 09:11 IMPRESSION: 1. Diminished bilateral toe brachial indices consistent with peripheral arterial disease. Heel X-Ray 05/11/25 18:05 IMPRESSION: No acute osseous finding in the right heel. Sacrum and Coccyx X-Ray 05/11/25 18:06 IMPRESSION: Exam limited by rotation in the lateral view and osteopenia. No definite fracture or erosion to suggest osteomyelitis. If clinical suspicion is high recommend CT of the pelvis with contrast for further evaluation. Labs Labs: Laboratory Results - last 24 hr 05/13/25 05/13/25 05/13/25 11:30 16:24 19:32 WBC RBC Hgb Hct MCV MCH MCHC RDW Plt Count MPV Immature Gran % (Auto) Neut % (Auto) Lymph % (Auto) Lares % (Auto) Eos % (Auto) Baso % (Auto) Lymph # (Auto) [place]res # (Auto) Eos # (Auto) Baso # (Auto) Abs Immat Gran (auto) Absolute Neuts (auto) Absolute Nucleated RBC Nucleated RBC % Sodium Potassium Chloride Carbon Dioxide Anion Gap BUN Creatinine Estim Creat Clear Calc Estimated GFR Glucose POC Capillary Glucose 229 H 128 H 84 Calcium C-Reactive Protein 05/13/25 05/14/25 05/14/25 20:27 06:03 07:21 WBC 7.4 RBC 3.21 L Hgb 10.3 L Hct 32.8 L MCV 102.2 H MCH 32.1 MCHC 31.4 L RDW 14.9 H Plt Count 253 MPV 10.2 Immature Gran % (Auto) 1.2 H Neut % (Auto) 67.5 Lymph % (Auto) 6.4 L Lares % (Auto) 11.0 H Eos % (Auto) 13.1 H Baso % (Auto) 0.8 Lymph # (Auto) 0.47 L [place]res # (Auto) 0.8 H Eos # (Auto) 1.0 H Baso # (Auto) 0.1 Abs Immat Gran (auto) 0.09 H Absolute Neuts (auto) 5.0 Absolute Nucleated RBC 0.000 Nucleated RBC % 0.0 Sodium 128 L Potassium 3.6 Chloride 97 L Carbon Dioxide 22 Anion Gap 9 BUN 33 H Creatinine 1.21 H Estim Creat Clear Calc 34 Estimated GFR 44 L Glucose 103 POC Capillary Glucose 98 103 Calcium 8.9 C-Reactive Protein 5.8 H
--- NOTE | 2025-05-14 11:40 | PCPTNOTE ---
Attempted to see patient for PT, however patient was going to have wound dressing change soon and unable to work with PT.
[2025-05-14] MEDS: HYDROmorphone HCL INJ (*CRX) 2 MG/ML VIAL 0.5 MG IV PUSH (11:44)
--- NOTE | 2025-05-14 12:31 | PM.PNGS ---
Progress Note: A&P Assessment and Plan (1) Abscess of buttock, left: Code(s): L02.31 - Cutaneous abscess of buttock Status: Acute Assessment and Plan: S/p I&D on 05/12. Abscess adequately drained. Okay to discharge from a surgical standpoint on oral antibiotics. Continue local wound care with daily packing dressing changes. HH will follow wounds, no surgical follow-up needed unless having issues. We will sign off. (2) Decubitus ulcer: Qualifiers: Pressure injury location: buttock Pressure injury stage: unspecified pressure injury stage Laterality: unspecified laterality Qualified Code(s): L89.309 - Pressure ulcer of unspecified buttock, unspecified stage Code(s): L89.90 - Pressure ulcer of unspecified site, unspecified stage Status: Acute Assessment and Plan: Continue local wound care to right heel ulcer. Discussed the importance of good nutrition/pressure offloading/and adequate wound care with the patient. 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 Iglesias. Subjective Subjective Date/Time Seen: 05/14/25 12:31 Post Op day: 2 Patient reports: no new complaints, feels better and pain is less Interval history: No acute events overnight. Exam Narrative: Sacral wound packing removed, no purulent drainage, minimal henao/yellow slough in the wound bed Objective Data Vital Signs Vital Signs: Vital Signs - 24 hr 05/13/25 13:26 05/13/25 17:26 05/13/25 21:54 Temperature 97.7 F 97.5 F L 97.5 F L Pulse Rate 99 97 96 Respiratory Rate 16 16 16 Blood Pressure 93/41 L 98/55 L 108/54 L Pulse Oximetry 95 100 100 Oxygen Delivery 05/13/25 21:58 05/14/25 06:19 Temperature 97.5 F L Pulse Rate 98 Respiratory Rate 24 H Blood Pressure 120/54 L Pulse Oximetry 100 96 Oxygen Delivery Room Air Intake/Output Intake/Output: Intake & Output 05/11/25 05/12/25 05/13/25 05/14/25 23:59 23:59 23:59 23:59 Intake Total 1270 630 924 680 Output Total 0106 530 5489 900 Balance -630 -220 -326 -220 Meds/Results Medications: Active Medications Generic Name Dose Route Start Last Admin Trade Name Freq PRN Reason Stop Dose Admin Acetaminophen 1,000 mg 05/05/25 17:00 05/14/25 09:20 Acetaminophen 500 Mg Tablet PO 1,000 mg TID NEIL Administration Ascorbic Acid 500 mg 05/05/25 09:00 05/14/25 09:20 Ascorbic Acid 500 Mg Tablet PO 500 mg DAILY NEIL Administration Atorvastatin Calcium 10 mg 05/05/25 09:00 05/14/25 09:19 Atorvastatin 10 Mg Tablet PO 10 mg QAM NEIL Administration Bumetanide 1 mg 05/04/25 17:00 05/14/25 09:20 Bumetanide 1 Mg Tablet PO 1 mg BID NEIL Administration Calcium Carbonate 200 mg 05/11/25 15:11 05/14/25 09:24 Calcium Carbonate (Tums) 500 Mg (200 Mg Elemental) PO 200 mg Q6H PRN Administration Indigestion Dextrose 12.5 gm 05/04/25 16:57 Dextrose 50% 25 Gm/50 Ml Syringe IV PUSH PRN PRN Hypoglycemia Protocol Docusate Sodium 100 mg 05/14/25 21:00 Docusate Sodium 100 Mg Capsule PO Q12HR NEIL Empagliflozin 10 mg 05/05/25 09:00 05/14/25 09:20 Empagliflozin 10 Mg Tablet PO 10 mg DAILY NEIL Administration Ferrous Sulfate 325 mg 05/05/25 09:00 05/14/25 09:20 Ferrous Sulfate [address] PO 325 mg DAILY NEIL Administration Fluticasone Propionate 1 spray 05/04/25 16:59 Fluticasone Propionate 0.05% Na Spr 16 Gm Btl (*Bkc) NASAL DAILY PRN allergies Folic Acid 0.8 mg 05/05/25 09:00 05/14/25 09:19 Folic Acid 0.4 Mg Tablet PO 0.8 mg DAILY NEIL Administration Gabapentin 300 mg 05/05/25 21:00 05/05/25 21:28 Gabapentin 300 Mg Capsule PO 300 mg HS NEIL Administration Glucagon 1 mg 05/04/25 16:57 Glucagon For Inj 1 Mg Vial IM PRN PRN Hypoglycemia Protocol Glucose 15 gm 05/04/25 16:57 Glucose Oral Gel 15 Gm Of Glucse In 37.5 Gm Tube PO PRN PRN Hypoglycemia Protocol Heparin Sodium (Porcine) 5,000 units 05/13/25 21:00 05/14/25 09:19 Heparin Sodium 5,000 Units/Ml Vial SUB-Q 5,000 units Q12HR NEIL Administration Hydromorphone HCl 0.5 mg 05/05/25 13:45 05/14/25 11:44 Hydromorphone Hcl Inj (*Crx) 2 Mg/Ml Vial IV PUSH 0.5 mg Q3H PRN Administration Breakthrough Pain Ceftriaxone Sodium 2 gm/ 100 mls @ 200 mls/hr 05/11/25 14:00 05/13/25 13:56 Sodium Chloride IVPB 200 mls/hr Q24H NEIL Administration Insulin Aspart 4 - 8 units 05/04/25 17:00 05/14/25 10:06 Insulin Aspart (*Bkc) 100 Units/Ml SUB-Q Not Given TIDWM [facility] Protocol Insulin Aspart 3 units 05/04/25 17:20 05/14/25 09:22 Insulin Aspart (*Bkc) 100 Units/Ml SUB-Q Not Given ACINSULIN [facility] Insulin Glargine 10 units 05/08/25 21:00 05/13/25 20:34 Insulin Glargine (*Bkc) 100 Units/Ml SUB-Q 10 units HS NEIL Administration Lidocaine 1 patch 05/05/25 09:00 05/14/25 09:21 Lidocaine 5% Patch TOPICAL Not Given DAILY NEIL Methocarbamol 750 mg 05/04/25 17:00 05/06/25 17:12 Methocarbamol 750 Mg Tablet PO 750 mg TID NEIL Administration Multi-Ingred Cream/Lotion/Oil/Oint 1 applic 05/04/25 17:23 Eucerin Cream 454 Gm Jar TOPICAL PRN PRN DRESSING CHANGES Multi-Ingred Cream/Lotion/Oil/Oint 1 applic 05/05/25 09:00 05/13/25 08:45 Eucerin Cream 454 Gm Jar TOPICAL 1 applic DAILY NEIL Administration Multivitamins/Calcium 1 tablet 05/05/25 09:00 05/14/25 09:20 Therapeutic Multivitamins/Minerals Tab (*Bkc) PO 1 tablet DAILY NEIL Administration Ondansetron HCl 4 mg 05/06/25 09:43 05/06/25 17:22 Ondansetron Inj 4 Mg/2 Ml Vial IV PUSH 4 mg Q4H PRN Administration Nausea And Vomiting Oxycodone HCl 2.5 mg 05/05/25 13:45 05/14/25 09:24 Oxycodone Hcl (*Crx) 2.5 Mg Tab Ir PO 2.5 mg Q4H PRN Administration Moderate Pain (4-6) Oxycodone HCl 5 mg 05/05/25 13:53 05/14/25 03:20 Oxycodone Hcl (*Crx) 5 Mg Tab Ir PO 5 mg Q4H PRN Administration Severe Pain Pantoprazole Sodium 40 mg 05/15/25 09:00 Pantoprazole 40 Mg Tablet PO QAM NEIL Polyethylene Glycol 17 gm 05/14/25 10:56 Polyethylene Glycol 3350 17 Gm Powd.Pack PO DAILY PRN Constipation Potassium Chloride 10 meq 05/05/25 09:00 05/14/25 09:20 Potassium Chloride 10 Meq Er Tablet PO 10 meq DAILY NEIL Administration Senna/Docusate Sodium 1 tab 05/05/25 21:00 05/13/25 20:34 Senna/Docusate Sodium Tablet PO Not Given HS [facility] Sodium Chloride 1 gm 05/06/25 09:00 05/14/25 09:20 Sodium Chloride 1 Gm Tablet PO 1 gm BID NEIL Administration Thiamine HCl 100 mg 05/05/25 09:00 05/14/25 09:20 Thiamine Hcl 100 Mg Tablet PO 100 mg QAM NEIL Administration Trimethoprim/Sulfamethoxazole 1 tab 05/13/25 13:00 05/14/25 09:20 Sulfamethoxazole/Trimethoprim 800/160 Mg Ds Tablet PO 1 tab Q12HR NEIL Administration Radiology Results: ITS Impressions Thoracic/Lumbar Spine CT 05/04/25 14:04 IMPRESSION: Small right pleural effusion. Acute/subacute mild compression fractures at T9, T10, and T12. 5 mm groundglass and 15 mm mixed groundglass/solid right upper lobe pulmonary nodules that have increased in size slightly since the October comparison CT. Recommend biopsy or PET/CT. No acute fracture or traumatic malalignment detected in the lumbar spine. Abdomen X-Ray 05/06/25 19:50 IMPRESSION: Suggestion of gastric fold thickening as can be seen with gastritis or varices. Suggestion of small bowel wall thickening, may reflect enteritis. Head CT 05/06/25 19:54 Impression: No acute intracranial hemorrhage or suspicious mass effect. Abdomen/Pelvis CT 05/06/25 20:40 IMPRESSION: Small volume pericardial fluid versus pericardial thickening. Small right pleural effusion with adjacent atelectasis. Infection not excluded. Moderate gastric distention with prominent folds and may represent gastric varices. Cirrhosis with portal hypertension. Mild gastric distention with prominent gastric folds that may represent gastric varices. Proximal small bowel wall thickening as can be seen with enteritis. Segmental wall thickening in the transverse and sigmoid colon, as can be seen with infectious, inflammatory, or ischemic colitis. Possible mild fecal impaction and constipation. Distended urinary bladder, correlate for urinary retention. Progressive mild-moderate multilevel compression fractures in the thoracic and lumbar spine. Brain MRI 05/07/25 13:49 IMPRESSION: 1. Severely limited study which was terminated prematurely at patient request due to back pain following only the sagittal T1-weighted imaging. Unable to assess for either acute infarction or T2-weighted signal changes and significantly decrease sensitivity for intracranial hemorrhage which was not observed. 2. Mild age-appropriate diffuse volume loss. Ankle Brachial Index 05/09/25 09:11 IMPRESSION: 1. Diminished bilateral toe brachial indices consistent with peripheral arterial disease. Heel X-Ray 05/11/25 18:05 IMPRESSION: No acute osseous finding in the right heel. Sacrum and Coccyx X-Ray 05/11/25 18:06 IMPRESSION: Exam limited by rotation in the lateral view and osteopenia. No definite fracture or erosion to suggest osteomyelitis. If clinical suspicion is high recommend CT of the pelvis with contrast for further evaluation. Labs Labs: Laboratory Results - last 24 hr 05/13/25 05/13/25 05/13/25 16:24 19:32 20:27 WBC RBC Hgb Hct MCV MCH MCHC RDW Plt Count MPV Immature Gran % (Auto) Neut % (Auto) Lymph % (Auto) [place] % (Auto) Eos % (Auto) Baso % (Auto) Lymph # (Auto) [place] # (Auto) Eos # (Auto) Baso # (Auto) Abs Immat Gran (auto) Absolute Neuts (auto) Absolute Nucleated RBC Nucleated RBC % Sodium Potassium Chloride Carbon Dioxide Anion Gap BUN Creatinine Estim Creat Clear Calc Estimated GFR Glucose POC Capillary Glucose 128 H 84 98 Calcium C-Reactive Protein 05/14/25 05/14/25 06:03 07:21 WBC 7.4 RBC 3.21 L Hgb 10.3 L Hct 32.8 L MCV 102.2 H MCH 32.1 MCHC 31.4 L RDW 14.9 H Plt Count 253 MPV 10.2 Immature Gran % (Auto) 1.2 H Neut % (Auto) 67.5 Lymph % (Auto) 6.4 L [place] % (Auto) 11.0 H Eos % (Auto) 13.1 H Baso % (Auto) 0.8 Lymph # (Auto) 0.47 L [place] # (Auto) 0.8 H Eos # (Auto) 1.0 H Baso # (Auto) 0.1 Abs Immat Gran (auto) 0.09 H Absolute Neuts (auto) 5.0 Absolute Nucleated RBC 0.000 Nucleated RBC % 0.0 Sodium 128 L Potassium 3.6 Chloride 97 L Carbon Dioxide 22 Anion Gap 9 BUN 33 H Creatinine 1.21 H Estim Creat Clear Calc 34 Estimated GFR 44 L Glucose 103 POC Capillary Glucose 103 Calcium 8.9 C-Reactive Protein 5.8 H
--- NOTE | 2025-05-14 13:43 | PCOTNOTE ---
Upon entering the room, Patient is in tears and states she is having severe heartburn, RN is aware and attempting to get medication to assist. Patient started vomiting and RN is present. Patient unable to participate at this time,
[2025-05-14] MEDS: PANTOPRAZOLE 40 MG TABLET PO (13:47)
[2025-05-14] MEDS: ONDANSETRON INJ 4 MG/2 ML VIAL IV PUSH (13:48)
[2025-05-14 14:33] VITALS: BP 112/57; PULSE 99; RESP 18; TEMP 36.6; O2SAT 96
[2025-05-14] MEDS: METOCLOPRAMIDE HCL INJ 10 MG/2 ML VIAL IV PUSH (15:09)
--- NOTE | 2025-05-14 15:21 | PCPTNOTE ---
Attempted to see patient for PT, however patient reported feeling too nauseous to work with therapy.
[2025-05-14] MEDS: EUCERIN CREAM 454 GM JAR 1 APPLIC TOPICAL (17:14)
[2025-05-14] MEDS: cefTRIAXone 2 GM in SODIUM CHLORIDE 0.9% IV 100 ML 200 ML IVPB (17:15)
[2025-05-14] MEDS: DOCUSATE SODIUM 100 MG CAPSULE PO (20:30)
[2025-05-14] MEDS: INSULIN GLARGINE (*BKC) 100 UNITS/ML 10 UNITS SUB-Q (21:33)
[2025-05-14 22:02] VITALS: O2SAT 96
[2025-05-14 22:19] VITALS: BP 115/60; PULSE 100; RESP 12; TEMP 37.1; O2SAT 97
[2025-05-15] MEDS: oxyCODONE HCL (*CRX) 2.5 MG TAB IR PO (04:10)
[2025-05-15] MEDS: oxyCODONE HCL (*CRX) 5 MG TAB IR PO ×2 (04:10→18:23)
[2025-05-15 06:50] VITALS: BP 115/58; PULSE 96; RESP 16; TEMP 36.7; O2SAT 96
[2025-05-15 06:51] LABS: Anion Gap 10 mmol/L (4-12); Blood Urea Nitrogen 35 mg/dL (7-17); CRP 4.3 mg/dL (<1.0); Calcium 8.8 mg/dL (8.4-10.2); Carbon Dioxide 23 mmol/L (22-30); Chloride 99 mmol/L (98-107); Estimated CRCL calculation 31 ml/min; Estimated Glomerular Filt Rate 39; Glucose 72 mg/dL (65-110); Potassium 3.4 mmol/L (3.4-5.0); Sodium 132 mmol/L (137-145)
[2025-05-15] MEDS: THIAMINE HCL 100 MG TABLET PO (09:14)
[2025-05-15] MEDS: SODIUM CHLORIDE 1 GM TABLET PO ×2 (09:14→18:25)
[2025-05-15] MEDS: ASCORBIC ACID 500 MG TABLET PO (09:14)
[2025-05-15] MEDS: SULFAMETHOXAZOLE/TRIMETHOPRIM 800/160 MG DS TABLET 1 TAB PO (09:14)
[2025-05-15] MEDS: THERAPEUTIC MULTIVITAMINS/MINERALS TAB (*BKC) 1 TABLET PO (09:14)
[2025-05-15] MEDS: EMPAGLIFLOZIN 10 MG TABLET PO (09:14)
[2025-05-15] MEDS: BUMETANIDE 1 MG TABLET PO ×2 (09:14→18:25)
[2025-05-15] MEDS: POTASSIUM CHLORIDE 10 MEQ ER TABLET PO (09:14)
[2025-05-15] MEDS: FOLIC ACID 0.4 MG TABLET 0.8 MG PO (09:14)
[2025-05-15] MEDS: PANTOPRAZOLE 40 MG TABLET PO (09:14)
[2025-05-15] MEDS: ACETAMINOPHEN 500 MG TABLET 1000 MG PO ×3 (09:15→18:25)
[2025-05-15] MEDS: DOCUSATE SODIUM 100 MG CAPSULE PO (09:15)
[2025-05-15] MEDS: ATORVASTATIN 10 MG TABLET PO (09:15)
[2025-05-15] MEDS: FERROUS SULFATE 325 MG TABLET DR PO (09:15)
[2025-05-15] MEDS: EUCERIN CREAM 454 GM JAR 1 APPLIC TOPICAL (09:16)
--- NOTE | 2025-05-15 11:41 | PM.IMPN ---
Progress Note: A&P Assessment and Plan (1) Alcoholism: Code(s): F10.20 - Alcohol dependence, uncomplicated Status: Chronic (2) Abscess of buttock, left: Code(s): L02.31 - Cutaneous abscess of buttock Status: Acute Plan Infected wound: Code(s): T14.8XXA - Other injury of unspecified body region, initial encounter; L08.9 - Local infection of the skin and subcutaneous tissue, unspecified Status: Acute Assessment and Plan: -Sacral wound noted to be draining yellow/brown purulent drainage - XR sacrum no obvious signs of osteomyelitis - WBC 10.7, ESR 101, afebrile - s/p I&D of buttock abscess and debridement of sacral decubitus ulcer 05/12/25 on Rocephin and Bactrim per ID pharmacist recommendations, adjust per cultures -Wound care following, continue to monitor Wound culture grows Enterococcus cloacae and Enterococcus faecalis To Bactrim and Zyvox p.o. per ID pharmacist recommendation Non-healing wound of right heel: Code(s): S91.301A - Unspecified open wound, right foot, initial encounter Status: Acute Assessment and Plan: - XR R heel with no osteo -wound appears clean and dry. -SONIA notable for PAD. - continue wound care - needs outpatient follow-up with vascular surgery. Wound culture see above Acute on chronic back pain: Code(s): M54.9 - Dorsalgia, unspecified; G89.29 - Other chronic pain Status: Acute Assessment and Plan: -CT thoracic/lumbar, 05/04: Acute/subacute mild compression fractures at T9, T10, and T12. No acute fracture or traumatic malalignment detected in the lumbar spine. -Uses a wheelchair at baseline. no precipitating trauma. unable to care for herself independently in current state prompting attempt for placement from the ED to acute rehab, unsuccessful. admitted for pain control, PT/OT and placement. - consulted neuro surgery, placed a brace and recommended outpatient follow-up 6 weeks. Avoid bending/twisting and no heavy lifting. -Scheduled Tylenol 650 TID, holding gabapentin 300mg hs. Continue oxycodone PRN, Dilaudid PRN for breakthrough pain. Wean IV narcotics as able. -Bowel regimen with opiates - PT/OT recommended SNF, Patient request to return home with [facility] Pulmonary nodule: Code(s): R91.1 - Solitary pulmonary nodule Status: Acute Assessment and Plan: - CT showed 5 mm groundglass and 15 mm mixed groundglass/solid right upper lobe pulmonary nodules that have increased in size slightly since the October comparison CT. Recommend biopsy or PET/CT. -Discussed biopsy with radiologist and recommended biopsy over PET scan. plan to pursue as outpatient. Chronic hyponatremia: Code(s): E87.1 - Hypo-osmolality and hyponatremia Status: Chronic Assessment and Plan: - chronic. 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 insulin use: with jail use Diabetes mellitus type: type 2 Qualified Code(s): E11.9 - Type 2 diabetes mellitus without complications; Z79.4 - jail (current) use of insulin Code(s): E11.9 - Type 2 diabetes mellitus without complications Status: Chronic Assessment and Plan: - hypoglycemia protocol - POC blood glucose ACHS - home medication: Jardiance, Lantus 15u SQ, Lispro 3u TID - correct regimen ordered - high dose TIDWM - A1C 4.6% on 03/25/2025 (7) Chronic kidney disease, stage 3: Qualifiers: Chronic kidney disease stage 3 subtype: stage 3b (GFR 30-44) Qualified Code(s): N18.32 - Chronic kidney disease, stage 3b Code(s): N18.30 - Chronic kidney disease, stage 3 unspecified Status: Chronic Assessment and Plan: - baseline creatinine: 1.5-2.0. Has been over 2 previously. - creatinine 1.15, BUN 24, GFR 24 upon initial evaluation. Up to 1.5, diuretics held temporarily and Cr improved -Had normal kidneys on US earlier this year, UA negative - trend renal function - trend electrolytes, correct as needed - resumed Bumex 05/13. Monitor renal function. Creatinine stable (8) Chronic anemia: Code(s): D64.9 - Anemia, unspecified Status: Chronic Assessment and Plan: - admit Hgb 11.8, previously 8.0 on 02/07 - secondary to chronic disease - transfuse if <7 Hemoglobin 10, stable (9) Alcoholism: Code(s): F10.20 - Alcohol dependence, uncomplicated Status: Chronic Assessment and Plan: -History of alcohol abuse, still has occasional use. - had signs of mild withdrawal s/p librium tap (10) Double vision: Code(s): H53.2 - Diplopia Status: Resolved Assessment and Plan: -RESOLVED -Binocular, also associated with tremors. Both symptoms resolved completely on exam 05/08 S/P Thiamine 500mg IV q8h x3. Also treated possible alcohol withdrawal, ativan 0.25 x1, scheduled librium 10 TID 05/08 -Head CT no acute findings. MRI brain unable to be completed due to low back pain (11) Vomiting: Code(s): R11.10 - Vomiting, unspecified Status: Resolved Assessment and Plan: -Zofran prn - resolved (12) Hypokalemia: Code(s): E87.6 - Hypokalemia Status: Acute Assessment and Plan: -resolved with PO replacement Corrected (13) Urinary retention: Code(s): R33.9 - Retention of urine, unspecified Status: Acute Assessment and Plan: -patient had episode of urinary retention requiring Samuel catheter placement -continue Samuel given sacral wound (14) Alcoholic cirrhosis: Code(s): K70.30 - Alcoholic cirrhosis of liver without ascites Status: Acute Assessment and Plan: - CT A/P showed moderate gastric distention which may represent gastric varices, cirrhosis with portal hypertension. Also showed possible colitis. - GI consulted, planning for outpatient Fibroscan. No concern for colitis given lack of abdominal pain or diarrhea. Subjective Date/time seen: 05/15/25 11:41 Interval history: I saw exam patient today, Patient feels comfortable, denies significant pain, denies chest pain shortness breath nausea vomiting diarrhea Exam Narrative: General: NAD Eyes: EOMI ENT: neck supple Cardiovascular: Regular rate and rhythm Respiratory: Clear to auscultation, respirations even and unlabored on RA Gastrointestinal: Soft, non tender Genitourinary: no suprapubic tenderness Musculoskeletal: left buttock wound clean with bloody drainage. Chronic venous stasis skin changes. Skin: warm, dry Neuro: Alert. Psych: Mood appropriate Objective Data Vital Signs Vital Signs: Vital Signs - 24 hr 05/14/25 14:33 05/14/25 22:02 05/14/25 22:19 Temperature 97.9 F 98.8 F Pulse Rate 99 100 Respiratory Rate 18 12 Blood Pressure 112/57 L 115/60 Pulse Oximetry 96 96 97 Oxygen Delivery Room Air Fraction of Inspired Oxygen 05/15/25 06:50 Temperature 98.1 F Pulse Rate 96 Respiratory Rate 16 Blood Pressure 115/58 L Pulse Oximetry 96 Oxygen Delivery Fraction of Inspired Oxygen Intake/Output Intake/Output: Intake & Output 05/12/25 05/13/25 05/14/25 05/15/25 23:59 23:59 23:59 23:59 Intake Total 630 1024 1252 220 Output Total 850 1250 1250 Balance -220 -226 2 220 Meds/Results Medications: Active Medications Generic Name Dose Route Start Last Admin Trade Name Freq PRN Reason Stop Dose Admin Acetaminophen 1,000 mg 05/05/25 17:00 05/15/25 09:15 Acetaminophen 500 Mg Tablet PO 1,000 mg TID NEIL Administration Ascorbic Acid 500 mg 05/05/25 09:00 05/15/25 09:14 Ascorbic Acid 500 Mg Tablet PO 500 mg DAILY NEIL Administration Atorvastatin Calcium 10 mg 05/05/25 09:00 05/15/25 09:15 Atorvastatin 10 Mg Tablet PO 10 mg QAM NEIL Administration Bumetanide 1 mg 05/04/25 17:00 05/15/25 09:14 Bumetanide 1 Mg Tablet PO 1 mg BID NEIL Administration Calcium Carbonate 200 mg 05/11/25 15:11 05/14/25 09:24 Calcium Carbonate (Tums) 500 Mg (200 Mg Elemental) PO 200 mg Q6H PRN Administration Indigestion Dextrose 12.5 gm 05/04/25 16:57 Dextrose 50% 25 Gm/50 Ml Syringe IV PUSH PRN PRN Hypoglycemia Protocol Docusate Sodium 100 mg 05/14/25 21:00 05/15/25 09:15 Docusate Sodium 100 Mg Capsule PO 100 mg Q12HR NEIL Administration Empagliflozin 10 mg 05/05/25 09:00 05/15/25 09:14 Empagliflozin 10 Mg Tablet PO 10 mg DAILY NEIL Administration Ferrous Sulfate 325 mg 05/05/25 09:00 05/15/25 09:15 Ferrous Sulfate [address] PO 325 mg DAILY NEIL Administration Fluticasone Propionate 1 spray 05/04/25 16:59 Fluticasone Propionate 0.05% Na Spr 16 Gm Btl (*Bkc) NASAL DAILY PRN allergies Folic Acid 0.8 mg 05/05/25 09:00 05/15/25 09:14 Folic Acid 0.4 Mg Tablet PO 0.8 mg DAILY NEIL Administration Gabapentin 300 mg 05/05/25 21:00 05/05/25 21:28 Gabapentin 300 Mg Capsule PO 300 mg HS NEIL Administration Glucagon 1 mg 05/04/25 16:57 Glucagon For Inj 1 Mg Vial IM PRN PRN Hypoglycemia Protocol Glucose 15 gm 05/04/25 16:57 Glucose Oral Gel 15 Gm Of Glucse In 37.5 Gm Tube PO PRN PRN Hypoglycemia Protocol Heparin Sodium (Porcine) 5,000 units 05/13/25 21:00 05/15/25 09:16 Heparin Sodium 5,000 Units/Ml Vial SUB-Q Not Given Q12HR NEIL Hydromorphone HCl 0.5 mg 05/05/25 13:45 05/14/25 11:44 Hydromorphone Hcl Inj (*Crx) 2 Mg/Ml Vial IV PUSH 0.5 mg Q3H PRN Administration Breakthrough Pain Ceftriaxone Sodium 2 gm/ 100 mls @ 200 mls/hr 05/11/25 14:00 05/14/25 17:45 Sodium Chloride IVPB Infused Q24H [facility] Infusion Insulin Aspart 4 - 8 units 05/04/25 17:00 05/14/25 17:13 Insulin Aspart (*Bkc) 100 Units/Ml SUB-Q Not Given TIDWM [facility] Protocol Insulin Aspart 3 units 05/04/25 17:20 05/14/25 17:13 Insulin Aspart (*Bkc) 100 Units/Ml SUB-Q Not Given ACINSULIN [facility] Insulin Glargine 10 units 05/08/25 21:00 05/14/25 21:33 Insulin Glargine (*Bkc) 100 Units/Ml SUB-Q 10 units HS NEIL Administration Lidocaine 1 patch 05/05/25 09:00 05/15/25 09:16 Lidocaine 5% Patch TOPICAL Not Given DAILY NEIL Methocarbamol 750 mg 05/04/25 17:00 05/06/25 17:12 Methocarbamol 750 Mg Tablet PO 750 mg TID NEIL Administration Metoclopramide HCl 10 mg 05/14/25 15:00 05/14/25 15:09 Metoclopramide Hcl Inj 10 Mg/2 Ml Vial IV PUSH 10 mg Q6HR PRN Administration Nausea And Vomiting Miscellaneous Information 1 each 05/14/25 00:01 Please Renew Hydromorphone And Oxycodone. Per [employer] Procedure, It Will Discontinue If N XX 06/13/25 00:00 CLARIFY NEIL Miscellaneous Information 1 each 05/14/25 00:01 Please Renew Oxycodone. Per [employer] Procedure, It Will Discontinue If Not Renewed XX 06/13/25 00:00 CLARIFY NEIL Multi-Ingred Cream/Lotion/Oil/Oint 1 applic 05/04/25 17:23 Eucerin Cream 454 Gm Jar TOPICAL PRN PRN DRESSING CHANGES Multi-Ingred Cream/Lotion/Oil/Oint 1 applic 05/05/25 09:00 05/15/25 09:16 Eucerin Cream 454 Gm Jar TOPICAL 1 applic DAILY NEIL Administration Multivitamins/Calcium 1 tablet 05/05/25 09:00 05/15/25 09:14 Therapeutic Multivitamins/Minerals Tab (*Bkc) PO 1 tablet DAILY NEIL Administration Ondansetron HCl 4 mg 05/06/25 09:43 05/14/25 13:48 Ondansetron Inj 4 Mg/2 Ml Vial IV PUSH 4 mg Q4H PRN Administration Nausea And Vomiting Oxycodone HCl 2.5 mg 05/05/25 13:45 05/15/25 04:10 Oxycodone Hcl (*Crx) 2.5 Mg Tab Ir PO 2.5 mg Q4H PRN Administration Moderate Pain (4-6) Oxycodone HCl 5 mg 05/05/25 13:53 05/15/25 04:10 Oxycodone Hcl (*Crx) 5 Mg Tab Ir PO 5 mg Q4H PRN Administration Severe Pain Pantoprazole Sodium 40 mg 05/15/25 09:00 05/15/25 09:14 Pantoprazole 40 Mg Tablet PO 40 mg QAM NEIL Administration Polyethylene Glycol 17 gm 05/14/25 10:56 Polyethylene Glycol 3350 17 Gm Powd.Pack PO DAILY PRN Constipation Potassium Chloride 10 meq 05/05/25 09:00 05/15/25 09:14 Potassium Chloride 10 Meq Er Tablet PO 10 meq DAILY NEIL Administration Senna/Docusate Sodium 1 tab 05/05/25 21:00 05/14/25 20:39 Senna/Docusate Sodium Tablet PO Not Given HS NEIL Sodium Chloride 1 gm 05/06/25 09:00 05/15/25 09:14 Sodium Chloride 1 Gm Tablet PO 1 gm BID NEIL Administration Thiamine HCl 100 mg 05/05/25 09:00 05/15/25 09:14 Thiamine Hcl 100 Mg Tablet PO 100 mg QAM NEIL Administration Trimethoprim/Sulfamethoxazole 1 tab 05/13/25 13:00 05/15/25 09:14 Sulfamethoxazole/Trimethoprim 800/160 Mg Ds Tablet PO 1 tab Q12HR NEIL Administration Radiology Results: ITS Impressions Thoracic/Lumbar Spine CT 05/04/25 14:04 IMPRESSION: Small right pleural effusion. Acute/subacute mild compression fractures at T9, T10, and T12. 5 mm groundglass and 15 mm mixed groundglass/solid right upper lobe pulmonary nodules that have increased in size slightly since the October comparison CT. Recommend biopsy or PET/CT. No acute fracture or traumatic malalignment detected in the lumbar spine. Abdomen X-Ray 05/06/25 19:50 IMPRESSION: Suggestion of gastric fold thickening as can be seen with gastritis or varices. Suggestion of small bowel wall thickening, may reflect enteritis. Head CT 05/06/25 19:54 Impression: No acute intracranial hemorrhage or suspicious mass effect. Abdomen/Pelvis CT 05/06/25 20:40 IMPRESSION: Small volume pericardial fluid versus pericardial thickening. Small right pleural effusion with adjacent atelectasis. Infection not excluded. Moderate gastric distention with prominent folds and may represent gastric varices. Cirrhosis with portal hypertension. Mild gastric distention with prominent gastric folds that may represent gastric varices. Proximal small bowel wall thickening as can be seen with enteritis. Segmental wall thickening in the transverse and sigmoid colon, as can be seen with infectious, inflammatory, or ischemic colitis. Possible mild fecal impaction and constipation. Distended urinary bladder, correlate for urinary retention. Progressive mild-moderate multilevel compression fractures in the thoracic and lumbar spine. Brain MRI 05/07/25 13:49 IMPRESSION: 1. Severely limited study which was terminated prematurely at patient request due to back pain following only the sagittal T1-weighted imaging. Unable to assess for either acute infarction or T2-weighted signal changes and significantly decrease sensitivity for intracranial hemorrhage which was not observed. 2. Mild age-appropriate diffuse volume loss. Ankle Brachial Index 05/09/25 09:11 IMPRESSION: 1. Diminished bilateral toe brachial indices consistent with peripheral arterial disease. Heel X-Ray 05/11/25 18:05 IMPRESSION: No acute osseous finding in the right heel. Sacrum and Coccyx X-Ray 05/11/25 18:06 IMPRESSION: Exam limited by rotation in the lateral view and osteopenia. No definite fracture or erosion to suggest osteomyelitis. If clinical suspicion is high recommend CT of the pelvis with contrast for further evaluation. Labs Labs: Laboratory Results - last 24 hr 05/14/25 05/14/25 05/14/25 11:20 16:31 19:42 Sodium Potassium Chloride Carbon Dioxide Anion Gap BUN Creatinine Estim Creat Clear Calc Estimated GFR Glucose POC Capillary Glucose 130 H 126 H 151 H Calcium C-Reactive Protein 05/14/25 05/15/25 05/15/25 21:31 05:22 08:06 Sodium 132 L Potassium 3.4 Chloride 99 Carbon Dioxide 23 Anion Gap 10 BUN 35 H Creatinine 1.33 H Estim Creat Clear Calc 31 Estimated GFR 39 L Glucose 72 POC Capillary Glucose 155 H 82 Calcium 8.8 C-Reactive Protein 4.3 H 05/15/25 11:26 Sodium Potassium Chloride Carbon Dioxide Anion Gap BUN Creatinine Estim Creat Clear Calc Estimated GFR Glucose POC Capillary Glucose 137 H Calcium C-Reactive Protein
--- NOTE | 2025-05-15 12:39 | PM.DS ---
DS: Admitting Diagnosis Discharge Date 05/15/25 Admitting Diagnosis (1) Alcoholism: Code(s): F10.20 - Alcohol dependence, uncomplicated Status: Chronic (2) Abscess of buttock, left: Code(s): L02.31 - Cutaneous abscess of buttock Status: Acute DS: Discharge Diagnosis Discharge Diagnosis (1) Peripheral vascular disease: Code(s): I73.9 - Peripheral vascular disease, unspecified Status: Acute (2) Alcoholism: Code(s): F10.20 - Alcohol dependence, uncomplicated Status: Chronic (3) Abscess of buttock, left: Code(s): L02.31 - Cutaneous abscess of buttock Status: Acute DS: Summary Hospital Course Hospital Course: 70 y/o F with PMH of cirrhosis, alcohol abuse, diastolic dysfunction, diabetes, chronic hyponatremia, chronic anemia, and chronic venous insufficiency with lipodermatosclerosis of the bilateral lower extremities. The patient presents here from home via EMS for further evaluation of low back pain. She has a history of chronic back pain and typically utilizes a wheelchair. However this morning she was unable to get out of bed due to the pain. She denies any precipitating trauma or injury prior to worsening back pain. She denies associated saddle anesthesia, numbness in her lower extremities, or new weakness in her lower extremities. Initial VS at presentation: 97.6? F, HR 96, RR 20, 127/59, and 96% on RA. ED workup showed: No leukocytosis, hemoglobin 11.8, sodium 125 (previously 128 on 03/25/2025), creatinine 1.15 and GFR 47 (at baseline), glucose 139. CT thoracic/lumbar showed small right pleural effusion, acute/subacute mild compression fractures at T9/T10/T12, 5 mm ground-glass in 50 mm mixed ground-glass solid right upper lobe pulmonary nodules that have increased in size slightly since October (rec biopsy or PET/CT), no fracture or traumatic malalignment detected in the lumbar spine. The following med issues have been addressed during hospitalization Infected wound: Code(s): T14.8XXA - Other injury of unspecified body region, initial encounter; L08.9 - Local infection of the skin and subcutaneous tissue, unspecified Status: Acute Assessment and Plan: -Sacral wound noted to be draining yellow/brown purulent drainage - XR sacrum no obvious signs of osteomyelitis - WBC 10.7, ESR 101, afebrile - s/p I&D of buttock abscess and debridement of sacral decubitus ulcer 05/12/25 on Rocephin and Bactrim per ID pharmacist recommendations, adjust per cultures -Wound care following, continue to monitor Wound culture grows Enterococcus cloacae and Enterococcus faecalis To Bactrim and Zyvox p.o. per ID pharmacist recommendation Non-healing wound of right heel: Code(s): S91.301A - Unspecified open wound, right foot, initial encounter Status: Acute Assessment and Plan: - XR R heel with no osteo -wound appears clean and dry. -SONIA notable for PAD. - continue wound care - needs outpatient follow-up with vascular surgery. Wound culture see above Acute on chronic back pain: Code(s): M54.9 - Dorsalgia, unspecified; G89.29 - Other chronic pain Status: Acute Assessment and Plan: -CT thoracic/lumbar, 05/04: Acute/subacute mild compression fractures at T9, T10, and T12. No acute fracture or traumatic malalignment detected in the lumbar spine. -Uses a wheelchair at baseline. no precipitating trauma. unable to care for herself independently in current state prompting attempt for placement from the ED to acute rehab, unsuccessful. admitted for pain control, PT/OT and placement. - consulted neuro surgery, placed a brace and recommended outpatient follow-up 6 weeks. Avoid bending/twisting and no heavy lifting. -Scheduled Tylenol 650 TID, holding gabapentin 300mg hs. Continue oxycodone PRN, Dilaudid PRN for breakthrough pain. Wean IV narcotics as able. -Bowel regimen with opiates - PT/OT recommended SNF, Patient request to return home with [facility] Pulmonary nodule: Code(s): R91.1 - Solitary pulmonary nodule Status: Acute Assessment and Plan: - CT showed 5 mm groundglass and 15 mm mixed groundglass/solid right upper lobe pulmonary nodules that have increased in size slightly since the October comparison CT. Recommend biopsy or PET/CT. -Discussed biopsy with radiologist and recommended biopsy over PET scan. plan to pursue as outpatient. Chronic hyponatremia: Code(s): E87.1 - Hypo-osmolality and hyponatremia Status: Chronic Assessment and Plan: - chronic. Likely secondary to fluid restriction and diuretic - Na zeke 124, now improved to 134 - continue NaCl tabs, 1800 cc fluid restriction - monitor BMP Sodium 132 today Diabetes mellitus: Qualifiers: Diabetes mellitus complication status: without complication Diabetes mellitus long distance operator insulin use: with long-term use Diabetes mellitus type: type 2 Qualified Code(s): E11.9 - Type 2 diabetes mellitus without complications; Z79.4 - detention (current) use of insulin Code(s): E11.9 - Type 2 diabetes mellitus without complications Status: Chronic Assessment and Plan: - hypoglycemia protocol - POC blood glucose ACHS - home medication: Jardiance, Lantus 15u SQ, Lispro 3u TID - correct regimen ordered - high dose TIDWM - A1C 4.6% on 03/25/2025 (7) Chronic kidney disease, stage 3: Qualifiers: Chronic kidney disease stage 3 subtype: stage 3b (GFR 30-44) Qualified Code(s): N18.32 - Chronic kidney disease, stage 3b Code(s): N18.30 - Chronic kidney disease, stage 3 unspecified Status: Chronic Assessment and Plan: - baseline creatinine: 1.5-2.0. Has been over 2 previously. - creatinine 1.15, BUN 24, GFR 24 upon initial evaluation. Up to 1.5, diuretics held temporarily and Cr improved -Had normal kidneys on US earlier this year, UA negative - trend renal function - trend electrolytes, correct as needed - resumed Bumex 05/13. Monitor renal function. Creatinine stable (8) Chronic anemia: Code(s): D64.9 - Anemia, unspecified Status: Chronic Assessment and Plan: - admit Hgb 11.8, previously 8.0 on 02/07 - secondary to chronic disease - transfuse if <7 Hemoglobin 10, stable (9) Alcoholism: Code(s): F10.20 - Alcohol dependence, uncomplicated Status: Chronic Assessment and Plan: -History of alcohol abuse, still has occasional use. - had signs of mild withdrawal s/p librium tap (10) Double vision: Code(s): H53.2 - Diplopia Status: Resolved Assessment and Plan: -RESOLVED -Binocular, also associated with tremors. Both symptoms resolved completely on exam 05/08 S/P Thiamine 500mg IV q8h x3. Also treated possible alcohol withdrawal, ativan 0.25 x1, scheduled librium 10 TID 05/08 -Head CT no acute findings. MRI brain unable to be completed due to low back pain (11) Vomiting: Code(s): R11.10 - Vomiting, unspecified Status: Resolved Assessment and Plan: -Zofran prn - resolved (12) Hypokalemia: Code(s): E87.6 - Hypokalemia Status: Acute Assessment and Plan: -resolved with PO replacement Corrected (13) Urinary retention: Code(s): R33.9 - Retention of urine, unspecified Status: Acute Assessment and Plan: -patient had episode of urinary retention requiring Samuel catheter placement -continue Samuel given sacral wound (14) Alcoholic cirrhosis: Code(s): K70.30 - Alcoholic cirrhosis of liver without ascites Status: Acute Assessment and Plan: - CT A/P showed moderate gastric distention which may represent gastric varices, cirrhosis with portal hypertension. Also showed possible colitis. - GI consulted, planning for outpatient Fibroscan. No concern for colitis given lack of abdominal pain or diarrhea. Patient will be discharged home today with home health per patient request Time Spent with Patient Time attestation: Total time spent providing and/or coordinating discharge services: Exam Narrative: General: NAD Eyes: EOMI ENT: neck supple Cardiovascular: Regular rate and rhythm Respiratory: Clear to auscultation, respirations even and unlabored on RA Gastrointestinal: Soft, non tender Genitourinary: no suprapubic tenderness Musculoskeletal: left buttock wound clean with bloody drainage. Chronic venous stasis skin changes. Skin: warm, dry Neuro: Alert. Psych: Mood appropriate DS: Data Data Completed and Pending Labs on day of discharge: Labs from last 24 hours 05/15/25 05/15/25 05/15/25 11:26 08:06 05:22 Sodium 132 L Potassium 3.4 Chloride 99 Carbon Dioxide 23 Anion Gap 10 BUN 35 H Creatinine 1.33 H Estim Creat Clear Calc 31 Estimated GFR 39 L Glucose 72 POC Capillary Glucose 137 H 82 Calcium 8.8 C-Reactive Protein 4.3 H 05/14/25 05/14/25 05/14/25 21:31 19:42 16:31 Sodium Potassium Chloride Carbon Dioxide Anion Gap BUN Creatinine Estim Creat Clear Calc Estimated GFR Glucose POC Capillary Glucose 155 H 151 H 126 H Calcium C-Reactive Protein 05/14/25 11:20 Sodium Potassium Chloride Carbon Dioxide Anion Gap BUN Creatinine Estim Creat Clear Calc Estimated GFR Glucose POC Capillary Glucose 130 H Calcium C-Reactive Protein Discharge Plan Discharge Attending physician on discharge: Chioma Johnson Consulting providers: Aleisha Alexis; Ольга Ignacio; Jeannetet Barahona; Isrrael Vanegas; Tino Samayoa Discharging Clinician: Chioma Johnson Anticipated Discharge Date/Time: 05/15/25 12:40 Patient Disposition: Home with Home Health Service Activity: may shower Diet: as tolerated and heart healthy Wound Care Instructions: change dressing daily Discharge Instructions: Wound care: Sacral wound - pack left buttock wound with 1/2 iodoform and cover with 4x4 gauze and tape, change daily. Heel ulcer - apply silver gel and cover with a cover dressing (gauze or mepilex), change daily. Per Care Coordination Patient is arranged to have [facility] for RN, PT, OT [phone]. [facility] will call to arrange a time to see you in your house after discarge. Patient Instructions: Antibiotic Form Patient Language: Zimbabwean Stand Alone Forms: General Discharge Information Follow-up/Referrals: Ghanshyam Ruiz APRN [Primary Care Provider] - (see PCP in one week ) Discharge Medications: New oxycodone 5 mg Tablet 5 mg PO Q8H PRN (Reason: Severe Pain) Qty: 20 0RF pantoprazole 40 mg Tablet,Delayed Release (Dr/Ec) 40 mg PO QAM Qty: 3 0RF sulfamethoxazole-trimethoprim 800-160 mg Tablet 1 tab PO Q12HR Qty: 7 0RF linezolid 600 mg Tablet 600 mg PO Q12HR Qty: 3 0RF Continued lidocaine 5 % adhesive patch,medicated 1 patch topical DAILY Rx Instructions: leave on most painful area for up to 12 hrs metolazone 2.5 mg tablet 2.5 mg PO DAILY sodium chloride 1 gram tablet 1,000 mg PO DAILY bumetanide 1 mg tablet 1 mg PO BID Qty: 60 5RF ascorbate calcium (vitamin C) 500 mg tablet 500 mg PO DAILY folic acid 800 mcg tablet 0.8 mg PO DAILY fluticasone propionate 50 mcg/actuation [place],Suspension 1 spray INTRANASAL DAILY PRN (Reason: allergies) thiamine HCl (vitamin B1) [Vitamin B-1] 100 mg Tablet 100 mg PO QAM Qty: 30 0RF Jardiance 10 mg Tablet 10 mg PO DAILY Qty: 30 0RF lanolin bpuyefy-el-i.pet-ceres Cream 1 applic topical DAILY Rx Instructions: apply cream to BLE daily and wrap left leg with kerlix daily and prn ferrous sulfate [Leonard-Time] 325 mg (65 mg iron) tablet 325 mg PO DAILY insulin lispro [Humalog KwikPen Insulin] 100 unit/mL insulin pen 3 unit SUB-Q TID Rx Instructions: before each meal. hold if bs <100 spironolactone 25 mg Tablet 50 mg PO QAM methocarbamol 750 mg tablet 750 mg PO TID insulin glargine [Lantus Solostar U-100 Insulin] 100 unit/mL (3 mL) insulin pen 15 unit subcut QPM Patient Comments: patient states she takes 10-15 units depending on what she has eaten, she states she tends to wake up low Rx Instructions: ADMINISTER 15 UNITS UNDER THE SKIN EVERY DAY AT BEDTIME Multiple Vitamin, Womens Tablet 1 tablet PO DAILY Qty: 30 0RF (DME) blood sugar diagnostic Strip See Rx Instructions .ROUTE .MEDSUPPLY Qty: 360 1RF Rx Instructions: use to test 4 times a day alendronate 70 mg tablet 70 mg PO WEEKLY Qty: 12 3RF Rx Instructions: MONDAY (DME) pen needle, diabetic [BD Muriel 2nd Gen Pen Needle] 32 gauge x 5/32 needle See Rx Instructions .ROUTE .MEDSUPPLY Qty: 360 1RF Rx Instructions: Use to inject insulin up to 4 times daily (DME) Dexcom G7 Sensor Device See Rx Instructions .Route Qty: 3 5RF Rx Instructions: As directed potassium chloride 10 mEq capsule, extended release 10 meq PO DAILY Qty: 90 1RF tramadol 50 mg tablet 50 mg PO Q8H PRN (Reason: pain) Qty: 30 0RF atorvastatin 10 mg tablet 10 mg PO QAM Qty: 90 1RF Rx Instructions: TAKE 1 TABLET BY MOUTH DAILY baclofen 10 mg tablet 10 mg PO BID Qty: 20 0RF Date of admission: 05/04/25 15:11 Primary Care Provider: Ghanshyam Ruiz Admitting Provider: Bradley Kimball Attending physician on admission: Bradley Kimball Condition: Stable
[2025-05-15 14:00] VITALS: BP 105/57; PULSE 89; RESP 16; TEMP 36.2; O2SAT 100
--- NOTE | 2025-05-15 14:05 | PCPTNOTE ---
Patient declined PT stating she is being discharged home.
[2025-05-15] MEDS: LINEZOLID 600 MG TABLET PO (14:58)
--- NOTE | 2025-05-15 16:35 | WNDPHOTO ---
PHOTO ONLY - See Nursing Notes and/ or assessments for documentation.
--- NOTE | 2025-05-15 16:50 | WNDPHOTO ---
PHOTO ONLY - See Nursing Notes and/ or assessments for documentation.
--- NOTE | 2025-05-15 16:53 | WNDPHOTO ---
PHOTO ONLY - See Nursing Notes and/ or assessments for documentation.
== END 2025-05-15 18:35 | disposition home health service (06) | DRG 463 ==
LOC: ANHED 14:19 → ANH3MEDSUR 15:55
PROVIDERS: Internal Medicine Nephrology; Nurse Practitioner Acute Care; Physician Assistant; Surgery; Admitting Provider Internal Medicine; Emergency Provider Emergency Medicine; PCP Nurse Practitioner; Visit Provider Hospitalist
PROC: 0JB70ZZ Excision of Back Subcutaneous Tissue and Fascia, Open Approach (ICD-10-PCS; CPT 46040; principal; 2025-05-12 14:30)
DX: M80.88XA Other osteoporosis with current pathological fracture, vertebra(e), initial encounter for fracture (principal); L89.323 Pressure ulcer of left buttock, stage 3; L89.613 Pressure ulcer of right heel, stage 3; L02.31 Cutaneous abscess of buttock; F10.239 Alcohol dependence with withdrawal, unspecified; E87.1 Hypo-osmolality and hyponatremia; N17.9 Acute kidney failure, unspecified; I50.32 Chronic diastolic (congestive) heart failure; B95.2 Enterococcus as the cause of diseases classified elsewhere; L89.159 Pressure ulcer of sacral region, unspecified stage; R62.7 Adult failure to thrive; Z68.25 Body mass index [BMI] 25.0-25.9, adult; K70.30 Alcoholic cirrhosis of liver without ascites; E11.22 Type 2 diabetes mellitus with diabetic chronic kidney disease; N18.32 Chronic kidney disease, stage 3b; G47.33 Obstructive sleep apnea (adult) (pediatric); E78.5 Hyperlipidemia, unspecified; I65.22 Occlusion and stenosis of left carotid artery; H53.2 Diplopia; T50.2X5A Adverse effect of carbonic-anhydrase inhibitors, benzothiadiazides and other diuretics, initial encounter; D63.1 Anemia in chronic kidney disease; I87.2 Venous insufficiency (chronic) (peripheral); H51.8 Other specified disorders of binocular movement; E87.6 Hypokalemia; R33.9 Retention of urine, unspecified; I73.9 Peripheral vascular disease, unspecified; D63.8 Anemia in other chronic diseases classified elsewhere; R91.8 Other nonspecific abnormal finding of lung field; M19.90 Unspecified osteoarthritis, unspecified site; L30.9 Dermatitis, unspecified; Z96.641 Presence of right artificial hip joint; Z90.710 Acquired absence of both cervix and uterus; Z87.891 Personal history of nicotine dependence; Z79.4 Long term (current) use of insulin
CPT/HCPCS: 36415; 70450; 70551; 72128; 72131; 72220; 73650; 74018; 74176; 80048; 80053; 80069; 80076; 81003; 82140; 82306; 82550; 82948; 83605; 83735; 83930; 83935; 84100; 84300; 85025; 85027; 85610; 85652; 86140; 87070; 87075; 87205; 87641; 93922; 97110; 97162; 97166; 97530; 97535; 99285; A9270; J0696; J1171; J1644; J1815; J2060; J2405; J2470; J2704; J2765; J3411; J3475; J3480; J7040; J7120

== ENCOUNTER 2025-08-01 12:20 | Outpatient (NON) | payer MEDICARE, SELFPAY ==
--- OUTSIDE RECORDS SUMMARY | 2024-03-30 16:30 | XMS_ITS ---
Author Organization [employer] [place] ([address]) Address [address] [place] [address] Care Team Providers [employer] Molder Name Role Phone Ramesh Smith Primary Care Provider UnavailDr. Juan Doherty Unavailable [phone] Wilfrido Harley Unavailable Unavailable [facility], Provider Unavailable Unavailab le Allergies Allergen (clinical drug ingredient) Drug/Non Drug Allergy documented on EMR Reaction Allergy Type Onset Date Status codeine Codeine Unknown Drug Allergy [facility] Conversion Encounter Medications Medication SIG (Take, Route, Frequency, Duration) Notes Start Date End Date Status Atorvastatin Calcium 10 MG 1 tab(s) orally once a day; Duration: 30 day(s) Active Alendronate Sodium 70 MG 1 tab(s) orally once a week; Duration: 28 day(s) Active HumaLOG 100 UNIT/ML 3 subcutaneously ac Active PriLOSEC OTC 20 MG 1 tab(s) orally once a day; Duration: 14 day(s) Active Labetalol HCl 100 MG 1 tab(s) orally Qday Active Sodium Chloride 1 GM as directed Active Furosemide 20 MG 1 tab(s) orally once a day; Duration: 30 day(s) Active Clobetasol Propionate 0.05 % 1 mike applied topically 2 times a day; Duration: 14 day(s) Active Potassium Chloride ER 10 MEQ 1 tab(s) orally 2 times a day; Duration: 30 day(s) Active Lantus 100 UNIT/ML 0 subcutaneously hs Active Encounters Encounter Location Date Provider Diagnosis [facility] - [address] [place] [address] 03/30/2024 Provider [facility] Plan Of Treatment No Information Progress Notes * Logan JOYOB:1955 (70 yo F)Acc No.[id number]:03/30/2024 Patient: Lou HARRIS Provider: Edel Taylor :1955 A ge:68 Y S ex:Female Date:03/30/2024 [id number] Pcp:Ramesh Smith Subjective: * Chief Complaints: * [facility] . [facility] Conversion Encounter. * Medical History: * Medications: T aking PriLOSEC OTC 20 MG Tablet Delayed Release 1 tab(s) orally once a day , Taking Alendronate Sodium 70 MG Tablet 1 tab(s) orally once a week , Taking HumaLOG 100 UNIT/ML Solution 3 subcutaneously ac , Taking Atorvastatin Calcium 10 MG Tablet 1 tab(s) orally once a day , Taking Sodium Chloride 1 GM Tablet as directed , Taking Potassium Chloride ER 10 MEQ Tablet Extended Release 1 tab(s) orally 2 times a day , Taking Lantus 100 UNIT/ML Solution 0 subcutaneously hs , Taking Furosemide 20 MG Tablet 1 tab(s) orally once a day , Taking Clobetasol Propionate 0.05 % Cream 1 mike applied topically 2 times a day , Taking Labetalol HCl 100 MG Tablet 1 tab(s) orally Qday * Allergies: C odeine. Objective: * Vitals: Assessment: Plan: * Treatment: * Billing Information: * Visit Code: * Procedure Codes: * Electronic signature of Prov ider [facility]Migration on 08/01/2025 at 12:47 PM CDT Sign off status: Pending * Provider: Edel Taylor Date: 0 03/30/2024 Generated for Mare kathleen/Tao/Rach on: 1 12:47 PM CDT
--- OUTSIDE RECORDS SUMMARY | 2025-08-01 12:47 | XMS_ITS | Clinical Summary ---
Author Organization [facility] Address [address] [place] [phone] Phone Care Team Providers Care Staffing Director Name Role Phone Dariel Horvath DO Primary Care Provider [phone] Allergies Active Allergy Reactions Criticality Noted Date [...] (#1) 2025 Insurance MEDICARE T Care Teams Staffing Director Relationship Specialty Start Date End Date Dariel Horvath DO [address] [place] [address] PCP - General Internal Medicine 05/27/21
--- OUTSIDE RECORDS SUMMARY | 2025-08-01 12:47 | XMS_ITS | Encounter Summary ---
Author Organization [facility] Healthcare Address [address] [place] [address] Care Team Providers Care Glycerin Supervisor Name Role Phone Augustus Birch MD Unavailable Ghanshyam Ruiz NP Primary Care Provider [phone] Encounter Details Date Type Department Care Team (Late st Contact Info) Description 11/01/2024 Orders Only [facility] [place] [facility] Information Management [address] [place] [address] Scanning, Provider Social History Tobacco Use Types Packs/Day Years Used Date Smoking Tobacco: Former Cigarettes 1 30 Q uit: 2006 Smokeless Tobacco: Never Comments Unknown Sex and Gender Information Value Date Recorded Sex Assigned at Not on file Legal Sex Female 1:34 PM CDT Gender Identity Not on file Sexual Orientation Not on file documented as of this encounter Plan of Treatment Not on file documented as of this encounter Procedures Procedure Name Priority Date/Time Associated Diagnosis Comments SCAN - RADIOLOGY/IMAGING 11/01/2024 documented in this encounter Results * SCAN - RADIOLOGY/IMAGING (11/01/2024) Anatomical Region Laterality Modality Other us Provider Scanning Final Result documented in this encounter Visit Diagnoses Not on filedocumented in this encounter Additional Health Concerns Infection Onset Date Last Indicated Resolved Time C. difficile Comment:FROM OSH 02/04/2025 02/04/2025 documented as of this encounter Care Teams Glycerin Supervisor Relationship Specialty Start Date End Date Ghanshyam Ruiz NP [address] [place] [address] PCP - General Nurse Practitioner 09/03/24 Augustus Birch MD [address] [place] [address] Internal Medicine 04/17/19 documented as of this encounter
--- OUTSIDE RECORDS SUMMARY | 2025-08-01 12:47 | XMS_ITS | Encounter Summary ---
Author Organization [facility] Healthcare Address [address] [place] [address] Care Team Providers Care Insurance Underwriter Name Role Phone Augustus Birch MD Unavailable Ghanshyam Ruiz NP Primary Care Provider [phone] Encounter Details Date Type Department Care Team (Late st Contact Info) Description 09/09/2024 Orders Only [facility] [place] Information Management [address] [place] [address] Scanning, Provider Social History Tobacco Use Types [...] Priority Date/Time Associated Diagnosis Comments SCAN - LABS 09/09/2024 documented in this encounter Results * SCAN - LABS (09/09/2024) us Provider Scanning Final Result documented in this encounter Visit Diagnoses Not on filedocumented in this encounter Additional Health Concerns Infection Onset Date Last Indicated Resolved Time C. difficile Comment:FROM OSH 02/04/2025 02/04/2025 documented as of this encounter Care Teams Insurance Underwriter Relationship Specialty Start Date End Date Ghanshyam Ruiz [employer] FENCE INSTALLER [address] [place] [address] PCP - General Nurse Practitioner 09/03/24 Augustus Birch MD [address] [place] [address] Internal Medicine 04/17/19 documented as of this encounter
--- OUTSIDE RECORDS SUMMARY | 2025-08-01 12:47 | XMS_ITS | Patient Health Record ---
Author Organization [facility] [employer] [place] ([address]) Address [address] [place] [address] Care Team Providers Care Director Retirement Name Role Phone Ramesh Smith Primary Care Provider Dr. 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 confirmed Problem Chronic migraine without aura, non-intractable (331917416615369) Chronic migraine without aura, not intractable, without status migrainosus (G43.709) Active confirmed Problem 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 Problem Orthostatic hypotension (37706787) Orthostatic hypotension (I95.1) Active confirmed Problem Abnormal gait (86867050) Other abnormalities of gait and mobility (R26.89) Active confirmed Problem Malaise (152179035) Other malaise (R53.81) Active confirmed Problem Neurogenic claudication (251281469) Spinal stenosis, lumbar region with neurogenic claudication (M48.062) Active confirmed Plan Of Treatment No Information Insurance Providers Payer Name Payer Address Payer Phone Subscriber Number Group Number Insured Name Patient Relationship to Insured Coverage Start Date Coverage End Date [employer] (Medicare) Attention Claims [address] [place] [address] [id number] Lou Islas Self - patient is the insured [employer] [address] [place] [address] [id number] Lou Islas Self - patient is the insured Medical (General) History Medical History History ICD Code Obesity DM2 HLD HTN Osteoarthritis Osteoporosis Lumbar DDD GERD Chronic hyponatremia Mild CKD Liver cirrhosis Surgical History Surgery Date(Month/Year) R hip replacement L hip replacement Lumbar discectomy B cataract
--- OUTSIDE RECORDS SUMMARY | 2025-08-01 12:47 | XMS_ITS | Encounter Summary ---
Author Organization [facility] Healthcare Address [address] [place] [address] Care Team Providers Care Shock Absorber Installer Name Role Phone Augustus Birch MD Unavailable Ghanshyam Ruiz NP Primary Care Provider [phone] Encounter Details Date Type Department Care Team (Late st Contact Info) Description 01/31/2025 Hospital Encounter [facility] ADMIT [address] [place] [address] Kelvin Win MD [address] [facility] [place] [address] [place] [address] Social History Tobacco Use Types Packs/Day Years Used Date Smoking Tobacco: Former Cigarettes 1 30 Q uit: 2005 Smokeless Tobacco: Never [facility] Utilities Answer Date Recorded In the past 12 months has [place], gas, oil, or water [employer] threatened to shut off services in your home? No 11/12/2024 Social Connection and Isolation Panel Answer Date Recorded In a typical week, how many times do you talk on the phone with family, friends, or neighbors? More than three times a week 11/12/2024 How often do you get togethe r with friends or relatives? Twice a week 11/12/2024 How often do you attend [facility] or congregation services? More than 4 times per year 11/12/2024 Do you belong to any clubs o r organizations such as moravian groups, unions, fraternal or athletic groups, or [...] any time in the past 12 m [facility], were you homeless or living [...] documented as of this encounter Care Teams Shock Absorber Installer Relationship Specialty Start Date End Date Ghanshyam Ruiz NP [address] [place] [address] PCP - General Nurse Practitioner 09/03/24 Augustus Birch MD [address] [place] [address] Internal Medicine 04/17/19 documented as of this encounter
--- OUTSIDE RECORDS SUMMARY | 2025-08-01 12:48 | XMS_ITS | Clinical Summary ---
Author Organization [facility] Address [address] [place] [address] Care Team Providers Care Tune Up Mechanic Name Role Phone Augustus Birch MD Unavailable Ghanshyam Ruiz NP Primary Care Provider [phone] Allergies Active Allergy Reactions Criticality Noted Date [...] mouth daily Active blood-glucose meter,continuous ([employer] G6 Cash Applications Representative) misc Activ e thiamine (VITAMIN B1) [...] mouth once a week 05/30/20 22 Active ascorbate calcium, vitamin C, 500 mg [...] solution for nebulization Take by nebulization Active [employer] G7 Sensor device USE DIRECTED - CHANGE EVERY 10 DAYS 11/12/19 Active clobetasoL (TEMOVATE) 0.05 % cream every [...] 1 tablet (1 g total) by mouth maori liaison adviser before breakfast 06/04/20 21 Active sodium zirconium cyclosilicate (LOKELMA) 5 gram packet Take 1 packet (5 g total) by mouth daily 06/04/20 21 Active valACYclovir (VALTREX) 1 gram tablet Take 1 tablet (1,000 mg total) by mouth every 8 (eight) hours 10/26/19 25 Active valACYclovir (VALTREX) 500 mg tablet TAKE 2 TABLETS BY MOUTH EVERY 24 HOURS 11/05/19 25 Active Jardiance 10 mg tablet TAKE 1 TABLET(10 MG) BY MOUTH DAILY 90 tablet 06/09/20 25 Active Active Problems Problem Noted Date Diagnosed Date Alcoholic liver disease 12/26/2024 Closed fracture of left distal femur 12/26/2024 Diabetes mellitus 12/26/2024 Gastroesophageal reflux disease 12/26/2024 Hyperlipidemia 12/26/2024 Neuropathy 12/26/2024 Osteoarthritis 12/26/2024 Chronic venous insufficiency of lower extremity 11/29/2024 Assessment & Plan (11/29/2024 11:50 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 More than 4 times per year 11/12/2024 Do you belong to any clubs o r organizations such as islam groups, unions, fraternal or athletic groups, or [...] time in the past 12 m [facility], were you homeless or living in a alf (including now)? 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 TEACHER Respiratory Rate 16 04/30/2025 9:45 AM CDT [...] Pneumococcal vaccine 65+ (2 of 2 - PPSV23, PCV20, or PCV21) 11/19/2019 09/24/2019 Covid-19 Vaccine (2024-2 6 season) 2025 07/17/2023, 07/22/2022, 05/05/2022, Additional history exists Influenza Vaccine (#1) 2025 , 07/17/2023, 07/22/2022, Additional history exists Hemoglobin A1C 08/10/2025 02/08/2025, 02/0 10/2024, 05/31/2021 Fall Risk Assessment 11/19/2025 11/19/2024 eGFR 02/27/2026 02/27/2025, 02/13, 02/24/2025, Additional history exists Lipid Panel 04/30/2026 04/30/2025, 11/15/2023 Procedures Procedure Name Priority Date/Time Associated Diagnosis Comments POCT LIPID PANEL Routine 04/30/2025 9:40 AM CDT Chronic diastolic congestive heart failure (HCC) EGFR Routine 02/27/2025 5:32 AM CDT HEMOGLOBIN A1C Routine 11/16/2024 9:56 AM MEDICAL RECORD LIBRARIANS TEACHER from Last 3 Months or Most Recently [...] last reviewed 2021. Testing performed by: [facility], [address] [place] [address]., [id number] Blood 02/27/2025 5:32 AM CDT 02/27/2025 8:24 AM CDT us Notinfile Unknown LAB BLOOD ORDERABLES Final Res ult [facility] [address] [facility] Department [place] [address] * Hemoglobin A1c (11/16/2024 9:56 AM MEDICAL RECORD LIBRARIANS TEACHER) Hgb A1C 5.4 4.0 - 5.6 % Comment:Testing performed by : [facility], [address] [place] [address]., [id number] Estimated Average Glucose 108 mg/dL DAYANA CARPIO Comment: The ADA recommends reporting an estimated Average Glucose (eAG) with all Hemoglobin A1c results using the equation derived from a study of 507 normal and diabetic adults. Minority populations were underrepresented and children were not included. (Diabetes Care 31:8880-0198, 2008). The eAG is not equivalent to a fasting glucose. Testing performed by: [facility], [address] [place] [address]., [address] Blood 11/16/2024 9:56 AM MEDICAL RECORD LIBRARIANS TEACHER 11/16/2024 10:29 AM MEDICAL RECORD LIBRARIANS TEACHER us Ivan Fairchild MD LAB BLOOD ORDERABLES Final Re sult [facility] [address] [facility] Department of Laboratories [place], [place] [id number] from Last 3 Months or Most Recently Relevant to Health Maintenance Additional Health Concerns Infection Onset Date Last Indicated C. difficile Comment:FROM OS 02/04/2025 02/04/2025 Insurance MEDICARE A[employer] SENIOR SUPPLEMENT Advance Directives For more information, please contact: [phone] Documents on File Type Date Recorded Patient Collection Development Librarian Expl anation ADVANCE DIRECTIVE 11/13/2024 3:42 PM Power of Gambling Counsellor-Medical * Full Code (Latest Code Status on File) Date Activated Date Inactivated Comments 11/12/2024 2:31 AM 11/20/2024 10:35 PM Care Teams Tune Up Mechanic Relationship Specialty Start Date End Date Ghanshyam Ruiz NP [address] [address] PCP - General Nurse Practitioner 09/03/24 Augustus Birch MD [address] [place] [address] Internal Medicine 04/17/19
--- OUTSIDE RECORDS SUMMARY | 2025-08-01 12:48 | XMS_ITS | Clinical Summary ---
Author Organization [facility] Address [address] [place] [address] Care Team Providers Care Compounding Scaler Name Role Phone Ghanshyam Ruiz Primary Care Provider Source Comments [facility],non-owned Affiliates and Associated Physician Practices is amultiple site organization consisting of ambulatory clinics and hospital sitesin [place], [place], [place] and [place]. This disclosure is being madepursuant to the Care Everywhere program and may not contain all information available regarding this patient. Last updated 18.[facility] Allergies Active Allergy Reactions Criticality Noted [...] fluticasone propionate (Flonase) 50 MCG/ACT nasal spray [place] 1 (one) spray into the nose once daily Active omeprazole EC (PriLOSEC OTC) 20 MG tablet Take 1 (one) tablet by mouth daily before breakfast Active spironolactone (Aldactone) 25 MG tablet Take 2 (two) tablets by mouth once daily 02/19/20 25 Active docusate sodium (Colace) 100 MG capsuleIndicati ons:Closed fracture of distal end of left femur, unspecified fracture morphology, initial encounter ([facility]) Take 1 (one) capsule by mouth once [...] 2:34 AM CDT): Underwent thoracentesis twice at [facility] in [facility] with a proximally 2 L removed. If [...] packet. There is report in notes from [facility] of a CT showing a 4 mm [...] HFpEF Closed fracture of left distal femur Social [...] and heating? Not hard at all 02/08/2025 [facility] [place] of Occupat ional Health - Occupational Stress [...] any time in the past 12 m [facility], were you homeless or living in a senior living (including now)? No 02/08/2025 Comments No Sex [...] 02/08/2025 11:59 AM CDT Plan of Treatment Health Maintenance [...] SCREENING 05/31/2021 DIABETES-FOOT EXAM WITH MONOFILAMENT 05/31/2021 DEPRESSION SCREENING 10/16/2024 DIABETES - URINE PROTEIN SCREENING 10/16/2024 COVID-19 VACCINE ( season) 2025 INFLUENZA VACCINE (#1) 2025 07/16/2024, 2019 DIABETES-HGB [...] this topic Medical Devices Implanted Type Area Fitness Specialist Device Identifier Shelf Expiration Date Model / Serial / Lot 8.0mm Cannulated Locking Screw Implanted:Qty: 1 on 05/31/2021 by Mary Ann Elkins MD at [facility] Left: Leg [id number] / / Plate 6 Hl Lck Precontr Fem Lt Dist Implanted:Qty: 1 on 05/31/2021 by Mary Ann Elkins MD at [facility] Left: Leg [employer] 06/24/2028 [id number] / / 5.5mm Dt Poly Locking Screws Implanted:Qty: 2 on 05/31/2021 by Mary Ann Elkins MD at [facility] Left: Leg [employer] [id number] / / 5.5mm Ft Poly Locking Screws Implanted:Qty: 2 on 05/31/2021 by Mary Ann Elkins MD at [facility] Left: Leg [id number] / / 4.5mm Solid Cortical Bone Screw Implanted:Qty: 1 on 05/31/2021 by Mary Ann Elkins MD at [facility] Left: Leg [id number] / / 4.5 Solid Cortical Bone Screw Implanted:Qty: 1 on 05/31/2021 by Mary Ann Elkins MD at [facility] Left: Leg [id number] / / 4.5 Solid Cortical Bone Screw Implanted:Qty: 1 on 05/31/2021 by Mary Ann Elkins MD at [facility] Left: Leg [id number] / / 4.5 Solid Cortical Bone Screw Implanted:Qty: 1 on 05/31/2021 by Mary Ann Elkins MD at [facility] Left: Leg [id number] / / Explanted Type Area Fitness Specialist Device Identifier Shelf Expiration Date Model / Serial / Lot Wire K 1.6mm 150mm 1 End Troc Pnt Ss Explanted:Qty: 1 on 05/31/2021 by Mary Ann Elkins MD at [facility] Left: Leg [employer] [id number] / / 5.5mm Non-Locking Screws Explanted:Qty: 1 on 05/31/2021 by Mary Ann Elkins MD at [facility] Left: Leg [id number] / / 4.5 Solid Cortical Bone Screw Explanted:Qty: 1 on 05/31/2021 by Mary Ann Elkins MD at [facility] Left: Leg [id number] / / Procedures Procedure Name Priority Date/Time Associated Diagnosis Comments COMPREHENSIVE METABOLIC PANEL AM Draw 02/18/2025 3:38 AM CDT HEPATITIS C AB SCREEN RFLX NAAT QUANT Routine 02/08/2025 4:34 AM CDT HEMOGLOBIN A1C Routine 02/08/2025 4:34 AM CDT from Last 3 Months or Most Recently Relevant to Health Maintenance Results * (ABNORMAL) COMPREHENSIVE METABOLIC PANEL (02/18/2025 3:38 AM CDT) BUN 29(H) 7 - 26 mg/dL 02/18/2025 4:48 AM [facility] Creatinine 1.39(H) 0.56 - 0.96 mg/dL 02/18/2025 4:48 AM [facility] Sodium 139 136 - 145 mmol/L 02/18/2025 4:48 AM [facility] Potassium 4.1 3.5 - 4.5 mmol/L 02/18/2025 4:48 AM [facility] Chloride 101 98 - 107 mmol/L 02/18/2025 4:48 AM [facility] CO2 27 22 - 29 mmol/L 02/18/2025 4:48 AM [facility] Glucose 153(H) 70 - 99 mg/dL 02/18/2025 4:48 AM [facility] Calcium 9.5 8.4 - 10.2 mg/dL 02/18/2025 4:48 AM [facility] Protein Total 6.4 6.0 - 8.3 g/dL 02/18/2025 4:48 AM [facility] Albumin 3.9 3.4 - 5.0 g/dL 02/18/2025 4:48 AM [facility] Bilirubin Total 1.1 0.2 - 1.2 mg/dL 02/18/2025 4:48 AM [facility] Alkaline Phosphatase 310(H) 40 - 150 U/L 02/18/2025 4:48 AM [facility] ALT 10 5 - 55 U/L 02/18/2025 4:48 AM [facility] AST 17 5 - 34 U/L 02/18/2025 4:48 AM [facility] Anion Gap 11 6 - 16 02/18/2025 4:48 AM [facility] BUN/Creatinine Ratio 21 7 - 23 02/18/2025 4:48 AM [facility] Osmolality Calculated 297(H) 275 - 295 mOsm/kg 02/18/2025 4:48 AM [facility] Albumin/Globulin Ratio 1.6 1.1 - 2.3 02/18/2025 4:48 AM [facility] eGFR by CKD-EPI 41(L) >=90 mL/min/1.7 3 m2 02/18/2025 4:48 AM [facility] Blood BLOOD SPECIMEN / Unknown Venipuncture / Unknown 02/18/2025 3:38 AM CDT 02/18/2025 3:51 AM CDT Duarte Mitchell DO LAB - CHEMISTRY ORDERABLES Manda l Result [facility] [address] [place] [phone], [facility] [phone] * HEPATITIS C AB SCREEN RFLX NAAT QUANT (02/08/2025 4:34 AM CDT) Hepatitis C Antibody Non-react faizan Non-reac tive 02/08/2025 6:02 AM [facility] Comment:Hepatitis C Antibody screen indicates no [...] AM CDT 02/08/2025 5:02 AM CDT Duarte Minayarecht DO LAB - CHEMISTRY ORDERABLES Manda l Result Performing Organization Address [facility]/ZIP Co de Phone Number [facility] [address] [place] [phone], [place] [phone] * HEMOGLOBIN A1C (02/08/2025 4:34 AM CDT) Hemoglobin A1c 5.4 <=5.6 % 02/08/2025 8:35 AM CDT [facility] Estimated Average Glucose 108 mg/dL 02/08/2025 8:35 AM CDT [facility] Comment: HbA1c Interpretation: Normal : < 5.7% Pre-diabetes: 5.7-6.4% Diabetes: Equal to or greater than 6.5% Test results diagnostic of diabetes should be repeated for confirmation. Treatment target values recommended by ADA and other clinical organizations should be used to evaluate metabolic control in patients. Reference: [place] Diabetes Association, Standards of Care in Diabetes -2020 In patients 70 years and older consider HbA1c target range of 7.0-7.5% (Reference: Phu Pisano et al. JAMDA. 2012) The Sebia assay for the measurement of HbA1c is a National Glycohemoglobin Standardization Program (NGSP) certified method. Blood BLOOD SPECIMEN / Unknown Lab Venipuncture / Unknown 02/08/2025 4:34 AM CDT 02/08/2025 5:07 AM CDT Duarte Mitchell DO LAB - CHEMISTRY ORDERABLES Manda l Result Performing Organization Address City/[facility]/ZIP Co de Phone Number [facility] [address] [place] [phone], [place] [phone] from Last 3 Months or Most Recently Relevant to Health Maintenance Additional Health Concerns Infection Onset Date Last Indicated C DIFF Comment:Added from external infection. Source: [facility]. 02/04/2025 Insurance MEDICARE AET MEDICARE Advance Directives Documents on File Type Date Recorded Patient Sulfate Drier Machine Operator Expl anation Adv Directive/Living Will/POA 03/10/2025 11:24 AM * Full Code (Latest Code Status on File) Date Activated Date Inactivated Comments 02/07/2025 10:54 PM 02/18/2025 7:54 PM * Full Code Date Activated Date Inactivated Comments 05/31/2021 12:14 AM 06/04/2021 6:44 PM Care Teams Compounding Scaler Relationship Specialty Start Date End Date Ghanshyam Ruiz APRN-HARDIK [address] [place] [address] PCP - General Nurse Practitioner 10/16/24
[2025-08-01 12:52] LABS: Hematocrit 34.6 % (37.0-47.0); Hemoglobin 11.3 g/dL (12.0-15.0); Immature Granulocyte Percent A 0.4 % (0-0.5); Immature Platelet Fraction Pct 7.5 % (0.9-11.2); Lymphocytes Absolute Auto 0.43 K/mm3 (0.9-3.2); Mean Corpuscular HGB Conc 32.7 g/dl (32-36); Mean Corpuscular Hemoglobin 35.5 pg (26-34); Mean Corpuscular Volume 108.8 fl (80-100); Nucleated Red Blood Cells Absolute Auto 0.000 K/mm3 (0.0-0.012); Nucleated Red Blood Cells Perc 0.0 % (0.0-0.2); Platelet Count Result 128 k/mm3 (150-375); Red Blood Count 3.18 M/mm3 (4.2-5.4); White Blood Count 4.7 K/mm3 (4.5-10.0)
== END 2025-08-01 12:21 | disposition home or self-care (01) ==
PROVIDERS: PCP Nurse Practitioner; Visit Provider Registered Nurse
DX: L08.9 Local infection of the skin and subcutaneous tissue, unspecified (principal)
CPT/HCPCS: 36415; 85025; 85055